=== PATIENT | female | born 1955 | race Caucasian/White ===

== ENCOUNTER 2020-08-18 15:27 | Inpatient (IN) | payer MEDICARE, MEDICAID, SELFPAY ==
[2020-08-18 15:41] VITALS: BP 105/88; BP 94/58; PULSE 80; PULSE 84; RESP 20; TEMP 36.9; O2SAT 100; O2SAT 85; BMI 15.7
--- NOTE | 2020-08-18 16:19 | ED_ITS ---
HPI - Altered Mental Status General Chief Complaint: Altered Mental Status Stated Complaint: AMS X 2 DAYS Time Seen by Provider: 08/18/20 15:41 Source: EMS Mode of arrival: EMS Limitations: altered mental status History of Present Illness HPI narrative: Patient's history of sleep apnea chronic pain bipolar disorder via EMS for increased lethargic per her patient is on lot of medication Klonopin Seroquel and history of oxycodone use in the past patient is in deep sleep but arousable screening for the pain. Other details are not available MD complaint: altered mental status Related Data Home Medications Medication Instructions Recorded Confirmed albuterol sulfate [Ventolin HFA] 2 puff INHALATION Q4H PRN 08/18/20 08/18/20 aspirin 1 tab PO BEDTIME 08/18/20 08/18/20 citalopram 1 tab PO QAM 08/18/20 08/18/20 clonazepam 1 tab PO TID 08/18/20 08/18/20 fluticasone propionate [Flovent 1 puff INHALATION BID 08/18/20 08/18/20 HFA] furosemide 3 tab PO QAM 08/18/20 08/18/20 gabapentin 100 mg PO DAILY 08/18/20 08/18/20 ipratropium-albuterol 1 amp INHALATION QID 08/18/20 08/18/20 metformin 500 mg PO DAILY 08/18/20 08/18/20 metoprolol tartrate 12.5 mg PO DAILY 08/18/20 08/18/20 montelukast 1 tab PO DAILY 08/18/20 08/18/20 pantoprazole 1 tab PO DAILY 08/18/20 08/18/20 pravastatin 1 tab PO BEDTIME 08/18/20 08/18/20 quetiapine 100 mg PO BID 08/18/20 08/18/20 Allergies Allergy/AdvReac Type Severity Reaction Status Date / Time advair Allergy Unknown Uncoded 11/10/19 00:00 paxil Allergy Unknown Uncoded 11/10/19 00:00 From PAXIL AdvReac Intermediate NAUSEA & Uncoded 06/13/20 16:41 VOMITING Review of Systems Review of Systems: Yes Unobtainable due to mental status PMFSH Social History Social History Household Members: Spouse Housing: Apartment Alcohol intake: never Smoking Status: Unknown if ever smoked Smoked in Last 30 Days: No Use of substances other than those prescribed or required for medical reasons: Unable to respond Advance Directives: No Advance Directives Information Provided: Yes Do you have thoughts of harming others: None Recently lost weight without trying: Unsure Physical Exam Vital Signs: Vital Signs: Last Vital Signs Temp 100.6 F H 08/19/20 00:00 Pulse 105 H 08/19/20 00:00 Resp 20 08/19/20 00:00 BP 129/63 08/19/20 00:00 Pulse Ox 93 08/19/20 00:00 Body Mass Index 15.7 Const: General: no acute distress, lethargic and patient obtunded Nutritional Appearance: well nourished Orientation/consciousness: patient obtunded and lethargic Limitations: altered mental status HENMT: Head: Yes normal to inspection Mouth: Abnormal oral and palatal mucosa present ( dry) Eyes: Pupils: Pupil size comments ( 2 mm each) Neck: Neck: Yes normal visual inspection and Yes no meningeal signs Resp: Effort & Inspection: normal respiratory effort Auscultation: clear to auscultation bilaterally, no crackles, no rales, no rhonchi and no wheezes Cardio: Rate: regular rate Rhythm: regular rhythm Heart sounds: S1 normal heart sound present and S2 normal heart sound present GI: Palpation (GI): Soft to palpation, nontender, no guarding and No hepatosplenomegaly present : General: Yes no CVA tenderness Back/Spine/Pelvis: Back: no CVA tenderness Thoracic/Lumbar Spine: thoracic and lumbar spine normal to inspection Neuro: General: tone normal, moves all extremities, no meningeal signs, no focal motor deficits and patient obtunded Course Course Course Narrative: patient increase lethargy , etiology not very clear labs showed leukocytosis and elevated creatinine to 2.76 from 1.01 in May patient's pupils are pinpoint will give her Narcan to see the response likely she took oxycodone IV fluids were given UA is pending plan to admit patient for acute renal failure with hyponatremia and altered mental status from metabolic encephalopathy Reevaluation(s) Reevaluation #1: patient did not respond to Narcan wakes up in between start screaming symptoms likely from metabolic encephalopathy UA showed UTI will give IV Rocephin. Patient's sodium is 121 with serum osmolality of 263 and urine osmolality 254 with sodium less than 20 suggestive of SIADH will admit patient for hyponatremia and UTI with metabolic encephalopathy MDM - Altered Mental Status Lab Data Result diagrams: 08/18/20 16:56 08/18/20 21:11 Labs: Lab Results 08/18/20 08/18/20 08/18/20 Range/Units 16:41 16:55 16:55 WBC (4.8-10.8) X10*3/uL RBC (4.20-5.50) X10*6/uL Hgb (12.0-16.0) g/dl Hct (37-47) % MCV (80-98) fL MCH (27.0-33.0) pg MCHC (31.0-35.0) g/dl RDW (11.0-16.0) % Plt Count (160-400) X10*3/uL MPV (9.4-12.3) fL Immature Gran % (Auto) (0.0-0.4) % Neut % (Auto) (45-73) % Lymph % (Auto) (20-40) % [place] % (Auto) (2-11) % Eos % (Auto) (0-4) % Baso % (Auto) (0-2) % Lymph # (Auto) (1.2-4.9) X10*3/uL [place] # (Auto) (0.1-1.2) X10*3/uL Eos # (Auto) (0.0-0.4) X10*3/uL Baso # (Auto) (0.0-0.2) X10*3/uL Abs Immat Gran (auto) (0.00-0.03) X10*3/uL Absolute Neuts (auto) (2.0-8.3) X10*3/uL Absolute Nucleated RBC (0.0-0.012) X10*3/uL Nucleated RBC % (auto) (0.0-0.2) /100WBC Smear Tech's Comments PT 13.1 H (10.8-13.0) SEC INR 1.1 (0.9-1.1) APTT 33.9 (24.1-38.0) SEC VBG pH (7.32-7.43) VBG pCO2 mmhg VBG pO2 mmhg VBG HCO3 mmol/L VBG O2 Saturation % VBG Base Excess mmol/L Sodium (135-145) mmol/L Potassium (3.3-5.1) mmol/l Chloride (96-108) mmol/L Carbon Dioxide (22-29) mmol/L Anion Gap (12-20) BUN (9-16) mg/dL Creatinine (0.5-1.4) mg/dL Estim Creat Clear Calc Estimated GFR Random Glucose (60-115) mg/dL Osmolality (281-305) mosm/kg Lactic Acid (0.5-2.0) mmol/L Calcium (8.4-10.2) mg/dL Total Bilirubin (0.0-1.0) mg/dL AST (5-31) U/L ALT (0-31) U/L Alkaline Phosphatase (39-117) U/L Total Protein (6.5-8.0) g/dL Albumin (3.5-5.0) g/dL Urine Color Urine Appearance Urine pH (5.0-8.0) Ur Specific [place] (1.005-1.025) Urine Protein (NEG-TRACE) MG/DL Urine Glucose (UA) (NEG) MG/DL Urine Ketones (NEG) MG/DL Urine Blood (NEG) Urine Nitrite (NEG) Ur Leukocyte Esterase (NEG) Urine RBC (0) /HPF Urine WBC (0-4) /HPF Ur Squamous Epith Cells /LPF Urine Bacteria /LPF Urine Osmolality (373-1093) mosm/kg Ur Random Sodium mmol/L Ur Random Potassium mmol/l Ur Random Chloride mmol/L Urine Opiates Screen (Not Detect) Ur Barbiturates Screen (Not Detect) Ur Phencyclidine Scrn (Not Detect) Ur Amphetamines Screen (Not Detect) U Benzodiazepines Scrn (Not Detect) Urine Cocaine Screen (Not Detect) U Marijuana (THC) Screen (Not Detect) COVID-19 ([facility]AKIA) Negative (Negative) COVID-19 Clin Com See Note 08/18/20 08/18/20 08/18/20 Range/Units 16:55 16:56 16:56 WBC 15.0 H (4.8-10.8) X10*3/uL RBC 3.71 L (4.20-5.50) X10*6/uL Hgb 12.1 (12.0-16.0) g/dl Hct 34.1 L (37-47) % MCV 91.9 (80-98) fL MCH 32.6 (27.0-33.0) pg MCHC 35.5 H (31.0-35.0) g/dl RDW 12.3 (11.0-16.0) % Plt Count 314 (160-400) X10*3/uL MPV 8.9 L (9.4-12.3) fL Immature Gran % (Auto) 1.1 H (0.0-0.4) % Neut % (Auto) 81.1 H (45-73) % Lymph % (Auto) 5.7 L (20-40) % [place] % (Auto) 11.9 H (2-11) % Eos % (Auto) 0.1 (0-4) % Baso % (Auto) 0.1 (0-2) % Lymph # (Auto) 0.9 L (1.2-4.9) X10*3/uL [place] # (Auto) 1.8 H (0.1-1.2) X10*3/uL Eos # (Auto) 0.0 (0.0-0.4) X10*3/uL Baso # (Auto) 0.0 (0.0-0.2) X10*3/uL Abs Immat Gran (auto) 0.17 H (0.00-0.03) X10*3/uL Absolute Neuts (auto) 12.1 H (2.0-8.3) X10*3/uL Absolute Nucleated RBC 0.000 (0.0-0.012) X10*3/uL Nucleated RBC % (auto) 0.0 (0.0-0.2) /100WBC Smear Tech's Comments VERIFIED PT (10.8-13.0) SEC INR (0.9-1.1) APTT (24.1-38.0) SEC VBG pH (7.32-7.43) VBG pCO2 mmhg VBG pO2 mmhg VBG HCO3 mmol/L VBG O2 Saturation % VBG Base Excess mmol/L Sodium 121 L (135-145) mmol/L Potassium 3.5 (3.3-5.1) mmol/l Chloride 73 L (96-108) mmol/L Carbon Dioxide 34 H (22-29) mmol/L Anion Gap 18 (12-20) BUN 38 H (9-16) mg/dL Creatinine 2.76 H (0.5-1.4) mg/dL Estim Creat Clear Calc 13.3 Estimated GFR 17 Random Glucose 132 H (60-115) mg/dL Osmolality 263 L (281-305) mosm/kg Lactic Acid (0.5-2.0) mmol/L Calcium 9.3 (8.4-10.2) mg/dL Total Bilirubin 0.6 (0.0-1.0) mg/dL AST 27 (5-31) U/L ALT 22 (0-31) U/L Alkaline Phosphatase 98 (39-117) U/L Total Protein 7.2 (6.5-8.0) g/dL Albumin 3.9 (3.5-5.0) g/dL Urine Color Urine Appearance Urine pH (5.0-8.0) Ur Specific [place] (1.005-1.025) Urine Protein (NEG-TRACE) MG/DL Urine Glucose (UA) (NEG) MG/DL Urine Ketones (NEG) MG/DL Urine Blood (NEG) Urine Nitrite (NEG) Ur Leukocyte Esterase (NEG) Urine RBC (0) /HPF Urine WBC (0-4) /HPF Ur Squamous Epith Cells /LPF Urine Bacteria /LPF Urine Osmolality (373-1093) mosm/kg Ur Random Sodium mmol/L Ur Random Potassium mmol/l Ur Random Chloride mmol/L Urine Opiates Screen (Not Detect) Ur Barbiturates Screen (Not Detect) Ur Phencyclidine Scrn (Not Detect) Ur Amphetamines Screen (Not Detect) U Benzodiazepines Scrn (Not Detect) Urine Cocaine Screen (Not Detect) U Marijuana (THC) Screen (Not Detect) COVID-19 ([facility]IA) (Negative) COVID-19 Clin Com 08/18/20 08/18/20 08/18/20 Range/Units 19:00 19:00 19:13 WBC (4.8-10.8) X10*3/uL RBC (4.20-5.50) X10*6/uL Hgb (12.0-16.0) g/dl Hct (37-47) % MCV (80-98) fL MCH (27.0-33.0) pg MCHC (31.0-35.0) g/dl RDW (11.0-16.0) % Plt Count (160-400) X10*3/uL MPV (9.4-12.3) fL Immature Gran % (Auto) (0.0-0.4) % Neut % (Auto) (45-73) % Lymph % (Auto) (20-40) % [place] % (Auto) (2-11) % Eos % (Auto) (0-4) % Baso % (Auto) (0-2) % Lymph # (Auto) (1.2-4.9) X10*3/uL [place] # (Auto) (0.1-1.2) X10*3/uL Eos # (Auto) (0.0-0.4) X10*3/uL Baso # (Auto) (0.0-0.2) X10*3/uL Abs Immat Gran (auto) (0.00-0.03) X10*3/uL Absolute Neuts (auto) (2.0-8.3) X10*3/uL Absolute Nucleated RBC (0.0-0.012) X10*3/uL Nucleated RBC % (auto) (0.0-0.2) /100WBC Smear Tech's Comments PT (10.8-13.0) SEC INR (0.9-1.1) APTT (24.1-38.0) SEC VBG pH 7.34 (7.32-7.43) VBG pCO2 70 mmhg VBG pO2 35 mmhg VBG HCO3 37 mmol/L VBG O2 Saturation 62.4 % VBG Base Excess 9.1 mmol/L Sodium (135-145) mmol/L Potassium (3.3-5.1) mmol/l Chloride (96-108) mmol/L Carbon Dioxide (22-29) mmol/L Anion Gap (12-20) BUN (9-16) mg/dL Creatinine (0.5-1.4) mg/dL Estim Creat Clear Calc Estimated GFR Random Glucose (60-115) mg/dL Osmolality (281-305) mosm/kg Lactic Acid 1.5 (0.5-2.0) mmol/L Calcium (8.4-10.2) mg/dL Total Bilirubin (0.0-1.0) mg/dL AST (5-31) U/L ALT (0-31) U/L Alkaline Phosphatase (39-117) U/L Total Protein (6.5-8.0) g/dL Albumin (3.5-5.0) g/dL Urine Color Urine Appearance Urine pH (5.0-8.0) Ur Specific [place] (1.005-1.025) Urine Protein (NEG-TRACE) MG/DL Urine Glucose (UA) (NEG) MG/DL Urine Ketones (NEG) MG/DL Urine Blood (NEG) Urine Nitrite (NEG) Ur Leukocyte Esterase (NEG) Urine RBC (0) /HPF Urine WBC (0-4) /HPF Ur Squamous Epith Cells /LPF Urine Bacteria /LPF Urine Osmolality (373-1093) mosm/kg Ur Random Sodium mmol/L Ur Random Potassium mmol/l Ur Random Chloride mmol/L Urine Opiates Screen Not Detected (Not Detect) Ur Barbiturates Screen Not Detected (Not Detect) Ur Phencyclidine Scrn Not Detected (Not Detect) Ur Amphetamines Screen Not Detected (Not Detect) U Benzodiazepines Scrn Not Detected (Not Detect) Urine Cocaine Screen Not Detected (Not Detect) U Marijuana (THC) Screen POSITIVE H (Not Detect) COVID-19 ([facility]AKIA) (Negative) COVID-19 Clin Com 08/18/20 08/18/20 08/18/20 Range/Units 19:13 19:35 19:35 WBC (4.8-10.8) X10*3/uL RBC (4.20-5.50) X10*6/uL Hgb (12.0-16.0) g/dl Hct (37-47) % MCV (80-98) fL MCH (27.0-33.0) pg MCHC (31.0-35.0) g/dl RDW (11.0-16.0) % Plt Count (160-400) X10*3/uL MPV (9.4-12.3) fL Immature Gran % (Auto) (0.0-0.4) % Neut % (Auto) (45-73) % Lymph % (Auto) (20-40) % [place] % (Auto) (2-11) % Eos % (Auto) (0-4) % Baso % (Auto) (0-2) % Lymph # (Auto) (1.2-4.9) X10*3/uL [place] # (Auto) (0.1-1.2) X10*3/uL Eos # (Auto) (0.0-0.4) X10*3/uL Baso # (Auto) (0.0-0.2) X10*3/uL Abs Immat Gran (auto) (0.00-0.03) X10*3/uL Absolute Neuts (auto) (2.0-8.3) X10*3/uL Absolute Nucleated RBC (0.0-0.012) X10*3/uL Nucleated RBC % (auto) (0.0-0.2) /100WBC Smear Tech's Comments PT (10.8-13.0) SEC INR (0.9-1.1) APTT (24.1-38.0) SEC VBG pH (7.32-7.43) VBG pCO2 mmhg VBG pO2 mmhg VBG HCO3 mmol/L VBG O2 Saturation % VBG Base Excess mmol/L Sodium (135-145) mmol/L Potassium (3.3-5.1) mmol/l Chloride (96-108) mmol/L Carbon Dioxide (22-29) mmol/L Anion Gap (12-20) BUN (9-16) mg/dL Creatinine (0.5-1.4) mg/dL Estim Creat Clear Calc Estimated GFR Random Glucose (60-115) mg/dL Osmolality (281-305) mosm/kg Lactic Acid (0.5-2.0) mmol/L Calcium (8.4-10.2) mg/dL Total Bilirubin (0.0-1.0) mg/dL AST (5-31) U/L ALT (0-31) U/L Alkaline Phosphatase (39-117) U/L Total Protein (6.5-8.0) g/dL Albumin (3.5-5.0) g/dL Urine Color RED Urine Appearance TURBID Urine pH 8.0 (5.0-8.0) Ur Specific [place] 1.015 (1.005-1.025) Urine Protein 2+ H (NEG-TRACE) MG/DL Urine Glucose (UA) NEG (NEG) MG/DL Urine Ketones 5 (NEG) MG/DL Urine Blood 3+ H (NEG) Urine Nitrite POS H (NEG) Ur Leukocyte Esterase TRACE H (NEG) Urine RBC TNTC H (0) /HPF Urine WBC 1-4 (0-4) /HPF Ur Squamous Epith Cells 1+ /LPF Urine Bacteria 1+ /LPF Urine Osmolality 254 L (373-1093) mosm/kg Ur Random Sodium < 20.0 mmol/L Ur Random Potassium 37.3 mmol/l Ur Random Chloride < 20.0 mmol/L Urine Opiates Screen (Not Detect) Ur Barbiturates Screen (Not Detect) Ur Phencyclidine Scrn (Not Detect) Ur Amphetamines Screen (Not Detect) U Benzodiazepines Scrn (Not Detect) Urine Cocaine Screen (Not Detect) U Marijuana (THC) Screen (Not Detect) COVID-19 ([facility]IA) (Negative) COVID-19 Clin Com 08/18/20 Range/Units 20:41 WBC (4.8-10.8) X10*3/uL RBC (4.20-5.50) X10*6/uL Hgb (12.0-16.0) g/dl Hct (37-47) % MCV (80-98) fL MCH (27.0-33.0) pg MCHC (31.0-35.0) g/dl RDW (11.0-16.0) % Plt Count (160-400) X10*3/uL MPV (9.4-12.3) fL Immature Gran % (Auto) (0.0-0.4) % Neut % (Auto) (45-73) % Lymph % (Auto) (20-40) % [place] % (Auto) (2-11) % Eos % (Auto) (0-4) % Baso % (Auto) (0-2) % Lymph # (Auto) (1.2-4.9) X10*3/uL [place] # (Auto) (0.1-1.2) X10*3/uL Eos # (Auto) (0.0-0.4) X10*3/uL Baso # (Auto) (0.0-0.2) X10*3/uL Abs Immat Gran (auto) (0.00-0.03) X10*3/uL Absolute Neuts (auto) (2.0-8.3) X10*3/uL Absolute Nucleated RBC (0.0-0.012) X10*3/uL Nucleated RBC % (auto) (0.0-0.2) /100WBC Smear Tech's Comments PT (10.8-13.0) SEC INR (0.9-1.1) APTT (24.1-38.0) SEC VBG pH (7.32-7.43) VBG pCO2 mmhg VBG pO2 mmhg VBG HCO3 mmol/L VBG O2 Saturation % VBG Base Excess mmol/L Sodium Cancelled (135-145) mmol/L Potassium (3.3-5.1) mmol/l Chloride (96-108) mmol/L Carbon Dioxide (22-29) mmol/L Anion Gap (12-20) BUN (9-16) mg/dL Creatinine (0.5-1.4) mg/dL Estim Creat Clear Calc Estimated GFR Random Glucose (60-115) mg/dL Osmolality (281-305) mosm/kg Lactic Acid (0.5-2.0) mmol/L Calcium (8.4-10.2) mg/dL Total Bilirubin (0.0-1.0) mg/dL AST (5-31) U/L ALT (0-31) U/L Alkaline Phosphatase (39-117) U/L Total Protein (6.5-8.0) g/dL Albumin (3.5-5.0) g/dL Urine Color Urine Appearance Urine pH (5.0-8.0) Ur Specific [place] (1.005-1.025) Urine Protein (NEG-TRACE) MG/DL Urine Glucose (UA) (NEG) MG/DL Urine Ketones (NEG) MG/DL Urine Blood (NEG) Urine Nitrite (NEG) Ur Leukocyte Esterase (NEG) Urine RBC (0) /HPF Urine WBC (0-4) /HPF Ur Squamous Epith Cells /LPF Urine Bacteria /LPF Urine Osmolality (373-1093) mosm/kg Ur Random Sodium mmol/L Ur Random Potassium mmol/l Ur Random Chloride mmol/L Urine Opiates Screen (Not Detect) Ur Barbiturates Screen (Not Detect) Ur Phencyclidine Scrn (Not Detect) Ur Amphetamines Screen (Not Detect) U Benzodiazepines Scrn (Not Detect) Urine Cocaine Screen (Not Detect) U Marijuana (THC) Screen (Not Detect) COVID-19 ([facility]) (Negative) COVID-19 Clin Com Discharge Plan Discharge Clinical Impression: Acute UTI, Acute metabolic encephalopathy Altered mental status Qualifiers: Altered mental status type: stupor Qualified Code(s): R40.1 - Stupor Patient Disposition: Admitted As Inpatient Interventions: Admission Worksheet (ED) Last Done: 08/18/20 22:40 Discharge Date/Time: 08/18/20 22:46
--- NOTE | 2020-08-18 16:26 | ECG_ITS ---
Test Reason : AMS Blood Pressure : / mmHG Vent. Rate : 075 BPM Atrial Rate : 075 BPM P-R Int : 146 ms QRS Dur : 096 ms QT Int : 458 ms P-R-T Axes : 057 005 070 degrees QTc Int : 511 ms Normal sinus rhythm with sinus arrhythmia ST & T wave abnormality, consider anterolateral ischemia RSR' or QR pattern in V1 suggests right ventricular conduction delay Abnormal ECG When compared with ECG of [id number] Heart rate has decreased T wave inversion more evident in Anterolateral leads Referred By: Mikel Blanco Electronically Signed By:ALVARO SEVERINO MD
[2020-08-18 16:33] VITALS: BP 100/62; PULSE 91; RESP 16; TEMP 36.5; O2SAT 98
--- NOTE | 2020-08-18 16:41 | XR_ITS ---
EXAMINATION: XR CHEST CLINICAL INFORMATION: Altered sensorium. COMPARISON: Chest radiograph and CTA chest dated 06/16/2020. TECHNIQUE: Frontal view of the chest was obtained. FINDINGS: The lungs are clear. The cardiomediastinal silhouette is normal in size. There is no pleural effusion or pneumothorax. No acute osseous abnormality. XR/XR chest 1V IMPRESSION: No acute cardiopulmonary findings.
[2020-08-18] MEDS: 0.9 % Sodium Chloride 1,000 ML 999 ML IVCONT ×2 (17:04→18:36)
[2020-08-18 17:05] VITALS: BP 100/61; PULSE 76; RESP 16; TEMP 37.1; O2SAT 98
[2020-08-18 17:06] LABS: Basophils Percent Auto 0.1 % (0-2); Eosinophils Percent Auto 0.1 % (0-4); Hematocrit 34.1 % (37-47); Hemoglobin 12.1 g/dl (12.0-16.0); Imm Gran Abs Auto 0.17 X10*3/uL (0.00-0.03); Imm Gran Pct Auto 1.1 % (0.0-0.4); Lymphocytes Absolute Auto 0.9 X10*3/uL (1.2-4.9); Lymphocytes Percent Auto 5.7 % (20-40); MANUAL DIFF FLAG SCAN; Mean Corpuscular HGB Conc 35.5 g/dl (31.0-35.0); Mean Corpuscular Hemoglobin 32.6 pg (27.0-33.0); Mean Corpuscular Volume 91.9 fL (80-98); Mean Platelet Volume 8.9 fL (9.4-12.3); Monocytes Absolute Auto 1.8 X10*3/uL (0.1-1.2); Monocytes Percent Auto 11.9 % (2-11); Neutrophils Absolute Auto 12.1 X10*3/uL (2.0-8.3); Neutrophils Percent Auto 81.1 % (45-73); Platelet Count 314 X10*3/uL (160-400); Red Blood Count 3.71 X10*6/uL (4.20-5.50); Red Cell Distribution Width 12.3 % (11.0-16.0); SCAN SMEAR FLAG 1
[2020-08-18 17:16] LABS: INTERNATIONAL NORM RATIO 1.1 (0.9-1.1); Prothrombin Time 13.1 SEC (10.8-13.0)
[2020-08-18 17:18] LABS: Partial Thromboplastin Time 33.9 SEC (24.1-38.0)
[2020-08-18 17:27] LABS: COVID-19 Test Negative (Negative)
[2020-08-18 17:51] LABS: Alanine Aminotransferase 22 U/L (0-31); Albumin Level 3.9 g/dL (3.5-5.0); Alkaline Phosphatase 98 U/L (39-117); Anion Gap 18 (12-20); Aspartate Amino Transferase 27 U/L (5-31); Bilirubin Total 0.6 mg/dL (0.0-1.0); Blood Urea Nitrogen 38 mg/dL (9-16); Calcium 9.3 mg/dL (8.4-10.2); Carbon Dioxide 34 mmol/L (22-29); Chloride 73 mmol/L (96-108); Creatinine Clr Calc Pharmacy 13.3; Estimated Glomerular Filt Rate 17; Glucose Random 132 mg/dL (60-115); Potassium 3.5 mmol/l (3.3-5.1); Sodium 121 mmol/L (135-145); Total Protein 7.2 g/dL (6.5-8.0)
[2020-08-18 18:08] LABS: SLIDE REVIEW VERIFIED
[2020-08-18] MEDS: Naloxone HCl 0.4 MG/ML VIAL IVPUSH (19:20)
[2020-08-18 19:32] LABS: Glucose Urine UA NEG (NEG); Leukocyte Esterase Urine TRACE (NEG); Nitrite Urine POS (NEG); Specific Gravity - Urine 1.015 (1.005-1.025); Urine Blood 3+ (NEG); Urine Ketones 5 MG/DL (NEG); Urine Protein 2+ MG/DL (NEG-TRACE)
[2020-08-18 19:33] LABS: Base Excess VBG 9.1 mmol/L; HCO3 VBG 37 mmol/L; Oxygen Saturation VBG 62.4 %; PCO2 VBG 70 mmhg; PO2 VBG 35 mmhg; pH VBG 7.34 (7.32-7.43)
[2020-08-18 19:33] LABS: Appearance Urine TURBID; Color Urine RED
[2020-08-18 19:34] LABS: Blood Gas Serial # 5414
[2020-08-18 19:47] LABS: Lactic Acid 1.5 mmol/L (0.5-2.0)
[2020-08-18 19:49] VITALS: BP 107/40; PULSE 85; RESP 20; TEMP 37.1; O2SAT 94
[2020-08-18 19:53] LABS: Amphetamine Screen Urine Not Detected (Not Detect); Barbiturates, Urine Not Detected (Not Detect); Benzodiazepines Screen Urine Not Detected (Not Detect); Cannabinoid Screen Urine POSITIVE (Not Detect); Cocaine Screen Urine Not Detected (Not Detect); Opiate Screen Urine Not Detected (Not Detect); Phencyclidine Screen Urine Not Detected (Not Detect)
[2020-08-18 19:59] LABS: Bacteria Urine 1+ /LPF; RBC Urine TNTC /HPF (0); Squamous Epithelial Cell Urine 1+ /LPF
[2020-08-18] MEDS: cefTRIAXone sodium 1 GM in 0.9 % Sodium Chloride 50 ML IV (20:12)
[2020-08-18 20:20] LABS: Potassium Urine Random 37.3 mmol/l; Sodium Urine Random < 20.0 mmol/L
[2020-08-18 20:28] LABS: Osmolality, Serum 263 mosm/kg (281-305)
[2020-08-18 20:28] LABS: Osmolality Urine 254 mosm/kg (373-1093)
[2020-08-18 21:05] LABS: Chloride Urine Random < 20.0 mmol/L
[2020-08-18 22:01] LABS: Sodium 125 mmol/L (135-145)
[2020-08-18 23:45] VITALS: BMI 26.0
[2020-08-18 23:48] LABS: Glucose, Whole Blood 151 mg/dL (60-115)
[2020-08-19] VITALS (13 sets, daily range): BP systolic 117–161; BP diastolic 63–86; PULSE 69–105; RESP 16–20; TEMP 36.2–38.1; O2SAT 89–99
--- NOTE | 2020-08-19 | CT_ITS ---
EXAMINATION: CT HEAD WITHOUT CONTRAST CLINICAL INFORMATION: Evaluation for altered mental status COMPARISON: 04/19/2015 TECHNIQUE: Contiguous axial imaging was performed from the skull base to vertex without intravenous administration of contrast. This CT examination was performed using dose optimization techniques as appropriate, variously including the following: *Automated exposure control *Adjustment of mA and/or kV according to patient size (this includes techniques or standardized protocols for targeted exams where dose is matched to indication/reason for exam; i.e. extremities or head) *Use of iterative reconstruction technique DLP: 849 mGy-cm FINDINGS: There is no evidence of acute intracranial hemorrhage or territorial infarction. No abnormal mass effect or midline shift is seen. Fitch to white matter differentiation is well preserved. Mild periventricular and deep white matter hypodensities suggesting underlying microangiopathy. No extra-axial fluid collections are identified. The ventricles are normal in size. There is no abnormal attenuation within the brain parenchyma. The osseous structures and soft tissues are normal. The mastoid air cells are chronically opacified. CT/CT head/brain wo con IMPRESSION: No acute intracranial pathology. Chronic opacification of the mastoid air cells.
--- NOTE | 2020-08-19 | CT_ITS ---
EXAMINATION: CT ABDOMEN AND PELVIS WITHOUT CONTRAST CLINICAL INFORMATION: Abdominal pain, evaluate for renal obstruction. COMPARISON: 03/22/2019 TECHNIQUE: Multidetector volumetric imaging was performed from the superior aspect of the liver through the pubic symphysis. Sagittal and coronal reformatted images were obtained on the technologist's workstation. This CT examination was performed using dose optimization techniques as appropriate, variously including the following: *Automated exposure control *Adjustment of mA and/or kV according to patient size (this includes techniques or standardized protocols for targeted exams where dose is matched to indication/reason for exam; i.e. extremities or head) *Use of iterative reconstruction technique DLP: 1148 mGy-cm FINDINGS: Motion artifact degrades image quality. LUNG BASES: The visualized lung bases are unremarkable. LIVER, GALLBLADDER, AND BILIARY TREE: Diffusely decreased liver parenchymal attenuation. No focal hepatic lesions. No intrahepatic biliary ductal dilatation. The gallbladder is unremarkable with no evidence of radiopaque gallstones, gallbladder wall thickening, or obvious pericholecystic inflammatory changes. PANCREAS: Unremarkable. SPLEEN: Unremarkable. ADRENAL GLANDS: Unremarkable. KIDNEYS AND URETERS: The kidneys are normal in size, shape, and attenuation. No hydronephrosis, hydroureter, or calculi seen. No perinephric stranding. BLADDER: The bladder is decompressed with a Dudley catheter in place. No bladder calculi GASTROINTESTINAL TRACT: The small and large bowel are unremarkable. Surgical clips in the region of the cecum. ABDOMINAL WALL: No significant hernia is appreciated. LYMPH NODES: Normal. VASCULAR: Mild to moderate atherosclerotic plaque throughout the aorta PELVIC VISCERA: The uterus and adnexa are unremarkable. 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 CT/CT abdomen pelvis wo con IMPRESSION: No hydronephrosis or renal calculi. Hepatic steatosis.
[2020-08-19] MEDS: Heparin Sodium,Porcine 5,000 UNIT/ML VIAL 5000 UNIT SUBCUT ×2 (00:18→12:52)
[2020-08-19] MEDS: 0.9 % Sodium Chloride Flush 3 ML SYRINGE IVFLUSH ×2 (00:18→09:00)
[2020-08-19] MEDS: 0.9 % Sodium Chloride 1,000 ML 50 ML IVCONT (00:19)
[2020-08-19] MEDS: Insulin Lispro 100 UNIT/ML 3 ML VIAL SUBCUT (00:27)
[2020-08-19 01:20] LABS: Sodium 125 mmol/L (135-145)
[2020-08-19 04:11] LABS: Basophils Percent Auto 0.1 % (0-2); Hematocrit 30.7 % (37-47); Hemoglobin 10.9 g/dl (12.0-16.0); Imm Gran Abs Auto 0.19 X10*3/uL (0.00-0.03); Imm Gran Pct Auto 1.4 % (0.0-0.4); Lymphocytes Absolute Auto 0.4 X10*3/uL (1.2-4.9); Lymphocytes Percent Auto 2.9 % (20-40); Mean Corpuscular HGB Conc 35.5 g/dl (31.0-35.0); Mean Corpuscular Hemoglobin 32.4 pg (27.0-33.0); Mean Corpuscular Volume 91.4 fL (80-98); Mean Platelet Volume 8.8 fL (9.4-12.3); Monocytes Absolute Auto 1.5 X10*3/uL (0.1-1.2); Monocytes Percent Auto 10.6 % (2-11); Neutrophils Absolute Auto 11.9 X10*3/uL (2.0-8.3); Platelet Count 257 X10*3/uL (160-400); Red Blood Count 3.36 X10*6/uL (4.20-5.50); Red Cell Distribution Width 12.2 % (11.0-16.0); SCAN SMEAR FLAG 1
[2020-08-19 04:16] LABS: MANUAL DIFF FLAG SCAN
[2020-08-19 04:32] LABS: SLIDE REVIEW VERIFIED
[2020-08-19 04:51] LABS: Anion Gap 16 (12-20); Blood Urea Nitrogen 41 mg/dL (9-16); Calcium 8.1 mg/dL (8.4-10.2); Carbon Dioxide 31 mmol/L (22-29); Chloride 82 mmol/L (96-108); Creatinine Clr Calc Pharmacy 21.3; Estimated Glomerular Filt Rate 19; Glucose Random 127 mg/dL (60-115); Sodium 126 mmol/L (135-145)
[2020-08-19 05:12] LABS: Thyroid Stimulating Hormone 0.86 uIU/mL (0.32-4.0)
[2020-08-19 08:20] LABS: Glucose, Whole Blood 137 mg/dL (60-115)
[2020-08-19] MEDS: Montelukast Sodium 10 MG TABLET PO (08:53)
[2020-08-19] MEDS: clonazePAM 0.5 MG TABLET PO (08:53)
[2020-08-19] MEDS: metFORMIN HCl 500 MG TABLET PO (08:53)
[2020-08-19] MEDS: QUEtiapine Fumarate 100 MG TABLET PO (08:54)
[2020-08-19] MEDS: Metoprolol Tartrate 25 MG TABLET 12.5 MG PO (08:54)
[2020-08-19] MEDS: Furosemide 20 MG TABLET 60 MG PO (08:55)
[2020-08-19] MEDS: Gabapentin 100 MG CAPSULE PO (09:00)
[2020-08-19] MEDS: Albuterol/Iprat 2.5/0.5MG 3 ML AMPUL.NEB INHALE ×4 (09:06→19:55)
[2020-08-19] MEDS: Fluticasone Propionate 250 MCG BLST.W.DEV 1 PUFF INHALE ×2 (09:30→19:55)
--- NOTE | 2020-08-19 11:03 | P.CDIC_ITS ---
CDI Concurrent Query Service Date: 08/19/20 Documentation Clarification: Please clarify if you are treating a proba ble/suspected/likely or confirmed: Metabolic/toxic encephalopathy poa Please specify if known Provider Response: Toxic Encephalopathy PLEASE DO NOT DELETE/MODIFY EXISTING CONTENT Additional information is needed in order to code to the highest accuracy and appropriate Severity of Illness (SOI). Please clarify the information noted be low in your progress notes and discharge summary. Risk Factors/Clinical Indicators/Treatments ED altered mental status, UTI Clinical impression: Admit Acute UTI, Acute metabolic encephalopathy. pt did not respond to Narcan wakes up in between start screaming symptoms likely from metabolic encephalopathy. CDS: Giulia Angelo CCS, CDIS Contact Number: [phone] Please Review the information above and exercise your independent professional judgment in responding to the query. If you concur, pleas document in the PROGRESS NOTES and DISCHARGE SUMMARY. If you do not agree with the query, please document in the query above. THIS QUERY IS PART OF THE PERMANENT MEDICAL RECORD
--- NOTE | 2020-08-19 11:04 | HP_ITS ---
Seen and examined independently, I agree with DIVINA note assessment and plan. For full note please see H&P DATE OF SERVICE: 08/18/2020 CHIEF COMPLAINT: Confusion. HISTORY OF PRESENT ILLNESS: A 65-year-old [place]-speaking woman presenting from the ER with confusion and lethargy. According to the record, apparently her called EMS for increased lethargy. He reported that he was concerned that she may be on a lot of medications including Klonopin and Seroquel and history of oxycodone use in the past. Apparently, she had seemed to be in a deep sleep, but arousable to painful stimuli. Unfortunately, the patient is confused and is unable to give any detailed information as to what happened including what her symptoms are when they started. An attempt was made to call 2 separate telephone numbers on the medical record, both were unsuccessful due to telephone number is not being in use. She did, however, positive for a UTI. Her white blood cell count was elevated at 15.0. She also had a venous blood gas, which showed pH of 7.34, pCO2 of 70, PO2 of 35, and HC03 37. Curiously enough, her sodium was noted to be 121, which is new for her. Unfortunately, the patient is confused, therefore information cannot be obtained as to why she may have such a low sodium. Her creatinine was also noted to be elevated at 2.76, which is also new for her. Urine toxicology was positive for marijuana. COVID-19 test was negative. Chest x-ray was negative for consolidation or effusion. Her vital signs were stable, though her blood pressure was a little on the lower side. Other than that, she was not hypoxic. She was given a dose of Rocephin in the ER, 2 L of IV fluids, at some point, a dose of naloxone. She will be admitted for further management and treatment of metabolic encephalopathy secondary to UTI and hyponatremia. PAST MEDICAL HISTORY: 1. Obstructive sleep apnea, unknown if the patient uses CPAP. 2. Coronary artery disease status post myocardial infarction. 3. Diabetes mellitus. 4. COPD. 5. Hypertension. 6. Osteoarthritis. 7. Bipolar disorder. 8. History of appendectomy. 9. History of tracheostomy and feeding tube that was discontinued. FAMILY HISTORY: According to the record, no history of cancer or inflammatory bowel disease. SOCIAL HISTORY: Unable to obtain any accurate social history as patient is unable to answer questions appropriately. ALLERGIES: ALLERGIES TO ADVAIR AND PAXIL. MEDICATIONS: 1. Aspirin 81 mg p.o. daily. 2. Baclofen 20 mg twice daily. 3. Cholecalciferol 25 mcg twice daily. 4. Citalopram 40 mg daily. 5. Clonazepam 0.5 mg 3 times a day for anxiety. 6. Cyclobenzaprine 10 mg twice daily. 7. Famotidine 20 mg twice daily. 8. Flovent 1 puff twice daily. 9. Furosemide 60 mg daily. 10. Gabapentin 100 mg. 11. Metformin 500 mg. 12. Metoprolol tartrate 25 mg. 13. Montelukast sodium 10 mg. 14. Pantoprazole 40 mg. 15. Pravastatin 40 mg. 16. Seroquel 100 mg. 17. Ventolin HFA 2 puffs every 4 hours as needed for shortness of breath. REVIEW OF SYSTEMS: Unable to obtain due metabolic encephalopathy. PHYSICAL EXAMINATION: CONSTITUTIONAL: The patient is resting in bed. Appearing confused, somewhat lethargic, but awake. HEENT: Eyes pupils are PERRLA. Sclerae are anicteric. Mouth and throat, mucous membranes are intact and moist. NECK: Supple. No lymphadenopathy. No JVD noted. CHEST: Diminished throughout. HEART: Regular rate and rhythm. ABDOMEN: Obese, positive bowel sounds. Soft, nontender. NEURO: The patient is alert, confused, does not appear to have focal deficits. LABORATORY DATA: WBC 15.0, hemoglobin 12.1, hematocrit 34.1, and platelets 314. Sodium 121, potassium 3.5, chloride is 73, bicarb is 34, BUN is 38, and creatinine is 2.76. Urinalysis positive for infection. Toxicology positive for marijuana, negative COVID. ASSESSMENT AND PLAN: A 65-year-old woman who is being admitted with metabolic encephalopathy secondary to hyponatremia and urinary tract infection. At this point, it is unclear what is driving the hyponatremia. According to the record, she may have some baseline confusion and lethargy at some points, but she seems quite confused today and unable to answer any questions. 1. Metabolic encephalopathy. Unclear etiology, but likely related to urinary tract infection and possibly hyponatremia as her sodium is 121. We will continue to monitor her neuro status, treat infection. Nephrology to follow for the hyponatremia. She is on multiple psych medications. We will hold clonazepam, cyclobenzaprine, gabapentin, and Seroquel for today and re-evaluate in the morning. 2. Hyponatremia. The patient appears to be on diuretic at home. She did receive some IV fluids in the ER. We will recheck sodium this evening. Nephrology to follow, urine studies are pending. 3. Acute kidney injury, multifactorial likely related to urinary tract infection and possibly hypoperfusion from hypotension. We will treat urinary tract infection, she did receive 2 L of IV fluids in the ER. Nephrology to follow. 4. Avoid nephrotoxins. 5. Urinary tract infection. Rocephin, follow urine cultures. 6. Diabetes mellitus. Sliding scale, ADA diet. Hold home medications for now. 7. Deep vein thrombosis prophylaxis with heparin. 8. Case discussed with Dr. Mariano. 9. Full code. MYCHAL Floyd JR/DERRELL / [id number] MTDD
[2020-08-19 11:11] LABS: Glucose, Whole Blood 111 mg/dL (60-115)
[2020-08-19] MEDS: Potassium Chloride ER 20 MEQ TAB.ER.PRT 40 MEQ PO (11:25)
--- NOTE | 2020-08-19 11:32 | MHC.CM.PN ---
CM attempted to meet with Patient X2, but Patient appears sleepy. CM made multiple calls to Patient's /Juanjo @ [phone], but the phone does not appear to be working (goes to an immediate busy tone).IMM left at bedside for Patient's review, when she is more alert/awake and a copy has been placed on the chart. dc plan appears to be home with services vs STR (presently a 2 assist with mobility); CM has initiated and will follow for further dc planning/needs. Patient's RN has received calls from Patient's and CM has requested to speak with him if/when he calls again (RN is agreeable to assist with this). PCP is Dr. Ryder Monique.
[2020-08-19] MEDS: Potassium Chloride/H20 10 MEQ/100 ML PIGGYBACK 100 MEQ IV (11:33)
--- NOTE | 2020-08-19 13:53 | MHC.CLN ---
RE: CONSULT (ROUTINE) RECOMMEND ADDING 2GM NA DIET TO CURRENT DIET R/T HX CAD WITH [place]
--- NOTE | 2020-08-19 15:15 | PC.NURSE ---
Patients phone number [phone].
--- NOTE | 2020-08-19 16:03 | P.PNIM_ITS ---
Subjective Subjective Date of Service: 08/19/20 Interval History: the patient was seen and evaluated this morning and in the afternoon Laying in bed, looks comfortable but very sleepy and waking up to sternum rub but goes back to sleep quickly Denies any fever, chills or shortness of breath No reported other overnight events. Systemic review: patient altered mentation Physical Exam Vital Signs: Vital Signs: Last Vital Signs Temp 98 F 08/19/20 15:40 Pulse 80 08/19/20 15:40 Resp 18 08/19/20 15:40 BP 124/63 08/19/20 15:40 Pulse Ox 97 08/19/20 15:40 Body Mass Index 26.0 Constitutional : altered mentation, encephalopathic, not in distress Neck : Normal inspection, Supple Cardiovascular : RRR, S1 S2, no lower extremity edema Respiratory : fair bilateral air entry, no crackles, scattered wheezes and no rhonchi Gastrointestinal: soft, lax, Normal bowel sounds, Non tender Skin : Warm/Dry, No rash Neurological : Alert & oriented x3, No focal deficit Objective Data Current Medications Generic Name Dose Route Start Last Admin Trade Name Freq PRN Reason Stop Dose Admin Acetaminophen 650 mg 08/18/20 23:40 Acetaminophen 325 Mg Tablet PO Q6H PRN Pain, Mild (Pain Scale 1-3) Albuterol Sulfate 2 puff 08/19/20 08:16 Albuterol Sulfate 90 Mcg 8 Gm Inhaler INHALE Q4H PRN Shortness Of Breath Or Wheezin Albuterol/Ipratropium 3 ml 08/19/20 08:30 08/19/20 15:26 Albuterol/Iprat 2.5/0.5mg 3 Ml Ampul.Neb INHALE 3 ml RQID YUMIKO Administration Aspirin 81 mg 08/19/20 21:00 Aspirin Enteric Coated 81 Mg Tablet. PO BEDTIME YUMIKO Fluticasone Propionate 1 puff 08/19/20 08:30 08/19/20 09:30 Fluticasone Propionate 250 Mcg Blst.W.Dev INHALE 1 puff RBID YUMIKO Administration Heparin Sodium (Porcine) 5,000 unit 08/18/20 23:40 08/19/20 12:52 Heparin Sodium,Porcine 5,000 Unit/Ml Vial SUBCUT 5,000 unit Q12H YUMIKO Administration Ceftriaxone Sodium 1 gm/ 50 mls @ 100 mls/hr 08/19/20 20:00 Sodium Chloride IV Q24H [facility] Potassium Chloride/Sodium Chloride 20 meq in 1,000 mls @ 125 mls/hr 08/19/20 12:00 08/19/20 12:53 IVCONT Not Given .Q8H YUMIKO Insulin Human Lispro 0 unit 08/18/20 23:40 08/19/20 12:26 Insulin Lispro 100 Unit/Ml 3 Ml Vial SUBCUT Not Given QIDACHS [facility] Protocol Metoprolol Tartrate 12.5 mg 08/19/20 09:00 08/19/20 08:54 Metoprolol Tartrate 25 Mg Tablet PO 12.5 mg DAILY [facility] Administration Protocol Montelukast Sodium 10 mg 08/19/20 09:00 08/19/20 08:53 Montelukast Sodium 10 Mg Tablet PO 10 mg DAILY [facility] Administration Ondansetron HCl 4 mg 08/18/20 23:40 Ondansetron Hcl 4 Mg/2 Ml Vial IVPUSH Q8H PRN Nausea and Vomiting Pharmacy Consult 1 each 08/18/20 19:57 Consult Rx Perform Med Rec MISCELLANE ONCE PRN Consult order Pravastatin Sodium 40 mg 08/19/20 21:00 Pravastatin Sodium 40 Mg Tablet PO BEDTIME [facility] Sodium Chloride 3 ml 08/19/20 00:00 08/19/20 09:00 0.9 % Sodium Chloride Flush 3 Ml Syringe IVFLUSH 3 ml QSHIFT [facility] Administration Labs CBC & Chem 7: 08/19/20 03:56 08/19/20 03:56 Microbiology Microbiology Results: Microbiology 08/18/20 19:00 Blood - Venous Blood Culture - Preliminary 08/18/20 19:35 Urine clean catch - Clean Catch Midstream Urine Culture - F inal 08/18/20 19:00 Blood - Venous Blood Culture - Preliminary Assessment and Plan (1) Altered mental status: Status: Acute (2) Acute UTI: Status: Acute (3) Acute metabolic encephalopathy: Status: Acute (4) Toxic encephalopathy: Status: Acute (5) Acute hyponatremia: Status: Acute Assessment and Plan: A 65-year-old female who is admitted with encephalopathy secondary to hyponatremia , UTI, SAGAR. Toxic/Metabolic encephalopathy. Unclear etiology, could be secondary to UTI, hyponatremia, kidney injury, medications to check CT scan of the head Nephrology to follow hold clonazepam, cyclobenzaprine, gabapentin, and Seroquel for today Hyponatremia. on diuretic at home. sodium improved to 126 this morning Urine studies suggesting true hyponatremia from hypovolemia Continue IV fluids Nephrology to follow monitor BMP Acute kidney injury Secondary to dehydration, medications, possible obstruction To check abdominal CT Creatinine 2.5 this morning Increase IV fluids Nephrology to follow Urinary tract infection No growth in urine culture continue Rocephin Diabetes mellitus. Sliding scale, ADA diet. Hold home medications for now. Deep vein thrombosis prophylaxis heparin. home
[2020-08-19 16:36] LABS: Anion Gap 14 (12-20); Blood Urea Nitrogen 44 mg/dL (9-16); Calcium 8.5 mg/dL (8.4-10.2); Carbon Dioxide 32 mmol/L (22-29); Chloride 86 mmol/L (96-108); Creatinine Clr Calc Pharmacy 22.4; Estimated Glomerular Filt Rate 20; Glucose Random 103 mg/dL (60-115); Potassium 3.2 mmol/l (3.3-5.1); Sodium 129 mmol/L (135-145)
[2020-08-19 17:21] LABS: Glucose, Whole Blood 115 mg/dL (60-115)
[2020-08-19] MEDS: Aspirin Enteric Coated 81 MG TABLET.DR PO (20:03)
[2020-08-19] MEDS: cefTRIAXone sodium 1 GM in 0.9 % Sodium Chloride 50 ML IV (20:03)
[2020-08-19] MEDS: Pravastatin Sodium 40 MG TABLET PO (20:03)
[2020-08-19] MEDS: Acetaminophen 325 MG TABLET 650 MG PO (20:03)
[2020-08-19 21:13] LABS: Glucose, Whole Blood 123 mg/dL (60-115)
[2020-08-20] VITALS (12 sets, daily range): BP systolic 136–172; BP diastolic 72–85; PULSE 72–104; RESP 18; TEMP 36.4–37.1; O2SAT 94–100
[2020-08-20] MEDS: 0.9 % Sodium Chloride Flush 3 ML SYRINGE IVFLUSH ×3 (00:53→16:02)
[2020-08-20] MEDS: Heparin Sodium,Porcine 5,000 UNIT/ML VIAL 5000 UNIT SUBCUT ×3 (00:53→21:21)
[2020-08-20] MEDS: Acetaminophen 325 MG TABLET 650 MG PO ×2 (02:34→09:26)
--- NOTE | 2020-08-20 06:01 | PC.NURSE ---
Alert and responsive but remained confused, screaming at times. SR on tele monitor. Complained of bilateral leg pain, Tylenol given with relief. She is getting NSS +20 KCl at 125 cc/hr. Dudley catheter with fruit punch colored urine. Able to sleep most part of the night. Needs were attended. Will continue care plan.
[2020-08-20 06:34] LABS: Hematocrit 33.5 % (37-47); Hemoglobin 11.6 g/dl (12.0-16.0); Mean Corpuscular HGB Conc 34.6 g/dl (31.0-35.0); Mean Corpuscular Hemoglobin 32.3 pg (27.0-33.0); Mean Corpuscular Volume 93.3 fL (80-98); Mean Platelet Volume 9.3 fL (9.4-12.3); Platelet Count 273 X10*3/uL (160-400); Red Blood Count 3.59 X10*6/uL (4.20-5.50); Red Cell Distribution Width 12.6 % (11.0-16.0); White Blood Count 9.2 X10*3/uL (4.8-10.8)
[2020-08-20 07:12] LABS: Alanine Aminotransferase 20 U/L (0-31); Albumin Level 3.1 g/dL (3.5-5.0); Alkaline Phosphatase 92 U/L (39-117); Anion Gap 18 (12-20); Aspartate Amino Transferase 28 U/L (5-31); Bilirubin Direct 0.3 mg/dL (0.0-0.5); Bilirubin Total 0.4 mg/dL (0.0-1.0); Blood Urea Nitrogen 51 mg/dL (9-16); Calcium 8.5 mg/dL (8.4-10.2); Carbon Dioxide 26 mmol/L (22-29); Chloride 90 mmol/L (96-108); Creatinine Clr Calc Pharmacy 20.7; Estimated Glomerular Filt Rate 18; Glucose Random 104 mg/dL (60-115); Potassium 3.9 mmol/l (3.3-5.1); Sodium 130 mmol/L (135-145); Total Protein 6.3 g/dL (6.5-8.0)
[2020-08-20 07:19] LABS: Glucose, Whole Blood 88 mg/dL (60-115)
[2020-08-20] MEDS: Albuterol/Iprat 2.5/0.5MG 3 ML AMPUL.NEB INHALE ×4 (07:21→20:21)
[2020-08-20] MEDS: Fluticasone Propionate 250 MCG BLST.W.DEV 1 PUFF INHALE ×2 (07:26→20:21)
[2020-08-20] MEDS: Metoprolol Tartrate 25 MG TABLET 12.5 MG PO (09:27)
[2020-08-20] MEDS: Montelukast Sodium 10 MG TABLET PO (09:27)
[2020-08-20 11:19] LABS: Glucose, Whole Blood 181 mg/dL (60-115)
[2020-08-20] MEDS: Insulin Lispro 100 UNIT/ML 3 ML VIAL SUBCUT (13:05)
--- NOTE | 2020-08-20 14:14 | HO.PM.IMPN ---
Subjective Subjective Date of Service: 08/20/20 Interval History: The patient was seen and evaluated this morning Laying in bed, feels comfortable, mildly anxious and confused Denies any fever, chills or shortness of breath reports back pain Alert to person and place but not time No reported other overnight events. Systemic review: No fever, chills or weakness No chest pain, palpitation No shortness of breath or coughing No abdominal pain, nausea or vomiting No urinary symptoms No any rash or wounds Physical Exam Vital Signs: Vital Signs: Last Vital Signs Temp 97.6 F 08/20/20 11:06 Pulse 93 08/20/20 11:19 Resp 18 08/20/20 11:06 BP 142/76 H 08/20/20 11:06 Pulse Ox 98 08/20/20 11:06 Body Mass Index 26.0 Constitutional : Alert, oriented, not in distress Neck : Normal inspection, Supple Cardiovascular : RRR, S1 S2, no lower extremity edema Respiratory : Good bilateral air entry, no crackles, wheezes or rhonchi Gastrointestinal: soft, lax, Normal bowel sounds, Non tender Skin : Warm/Dry, No rash Neurological : Alert & oriented x3, No focal deficit, tremors when anxious Objective Data Current Medications Generic Name Dose Route Start Last Admin Trade Name Freq PRN Reason Stop Dose Admin Acetaminophen 650 mg 08/18/20 23:40 08/20/20 09:26 Acetaminophen 325 Mg Tablet PO 650 mg Q6H PRN Administration Pain, Mild (Pain Scale 1-3) Albuterol Sulfate 2 puff 08/19/20 08:16 Albuterol Sulfate 90 Mcg 8 Gm Inhaler INHALE Q4H PRN Shortness Of Breath Or Wheezin Albuterol/Ipratropium 3 ml 08/19/20 08:30 08/20/20 11:17 Albuterol/Iprat 2.5/0.5mg 3 Ml Ampul.Neb INHALE 3 ml RQID YUMIKO Administration Aspirin 81 mg 08/19/20 21:00 08/19/20 20:03 Aspirin Enteric Coated 81 Mg Tablet.Dr PO 81 mg BEDTIME YUMIKO Administration Fluticasone Propionate 1 puff 08/19/20 08:30 08/20/20 07:26 Fluticasone Propionate 250 Mcg Blst.W.Dev INHALE 1 puff RBID YUMIKO Administration Heparin Sodium (Porcine) 5,000 unit 08/18/20 23:40 08/20/20 13:06 Heparin Sodium,Porcine 5,000 Unit/Ml Vial SUBCUT 5,000 unit Q12H [facility]UM[facility]KO Administration Ceftriaxone Sodium 1 gm/ 50 mls @ 100 mls/hr 08/19/20 20:00 08/19/20 20:45 Sodium Chloride IV Infused Q24H YUMIKO Infusion Potassium Chloride/Sodium Chloride 20 meq in 1,000 mls @ 125 mls/hr 08/19/20 12:00 08/20/20 13:06 IVCONT 125 mls/hr .Q8H YUMIKO Administration Insulin Human Lispro 0 unit 08/18/20 23:40 08/20/20 13:05 Insulin Lispro 100 Unit/Ml 3 Ml Vial SUBCUT 2 unit QIDACHS [facility] Administration Protocol Metoprolol Tartrate 12.5 mg 08/19/20 09:00 08/20/20 09:27 Metoprolol Tartrate 25 Mg Tablet PO 12.5 mg DAILY Y[facility]IKO Administration Protocol Montelukast Sodium 10 mg 08/19/20 09:00 08/20/20 09:27 Montelukast Sodium 10 Mg Tablet PO 10 mg DAILY [facility] Administration Ondansetron HCl 4 mg 08/18/20 23:40 Ondansetron Hcl 4 Mg/2 Ml Vial IVPUSH Q8H PRN Nausea and Vomiting Pharmacy Consult 1 each 08/18/20 19:57 Consult Rx Perform Med Rec MISCELLANE ONCE PRN Consult order Pravastatin Sodium 40 mg 08/19/20 21:00 08/19/20 20:03 Pravastatin Sodium 40 Mg Tablet PO 40 mg BEDTIME [facility] Administration Sodium Chloride 3 ml 08/19/20 00:00 08/20/20 09:27 0.9 % Sodium Chloride Flush 3 Ml Syringe IVFLUSH 3 ml QSHIFT [facility] Administration Labs CBC & Chem 7: 08/20/20 05:57 08/20/20 05:57 Microbiology Microbiology Results: Microbiology 08/18/20 19:00 Blood - Venous Blood Culture - Preliminary Gram negative aristides 08/18/20 19:00 Blood - Venous Blood Culture - Preliminary Gram negative aristides 08/18/20 19:35 Urine clean catch - Clean Catch Midstream Urine Culture - Final Assessment and Plan (1) Altered mental status: Status: Acute (2) Acute UTI: Status: Acute (3) Acute metabolic encephalopathy: Status: Acute (4) Toxic encephalopathy: Status: Acute (5) Acute hyponatremia: Status: Acute Assessment and Plan: A 65-year-old female who is admitted with encephalopathy secondary to hyponatremia , UTI, SAGAR. Gram-negative bacteremia Likely secondary to Urinary tract infection Patient not septic blood cultures growing GNR , pending final sensitivity mixed growth in urine culture continue Rocephin Toxic/Metabolic encephalopathy. improving, more awake and oriented today could be secondary to UTI, hyponatremia, kidney injuryAnd medications normal CT scan of the head hold clonazepam, cyclobenzaprine, gabapentin, and Seroquel for today recurrent reorientation Hyponatremia. on diuretic at home. sodium improved to 130 this morning Urine studies suggesting true hyponatremia from hypovolemia Continue IV fluids Nephrology to follow monitor BMP Acute kidney injury Secondary to dehydration, medications, possible obstruction no obstruction on abdominal CT Creatinine 2.6With worsening BUN this morning continue IV fluids Nephrology to follow Diabetes mellitus. Sliding scale, ADA diet. Hold home medications for now. Deep vein thrombosis prophylaxis heparin. home
--- NOTE | 2020-08-20 14:50 | PM.PNNEP ---
Subjective Subjective Date of Service: 08/20/20 Interval history: seen and examined denies shortness of breath abdominal pain, nausea or vomiting Physical Exam Vital Signs: Vital Signs: Last Vital Signs Temp 97.6 F 08/20/20 11:06 Pulse 93 08/20/20 11:19 Resp 18 08/20/20 11:06 BP 142/76 H 08/20/20 11:06 Pulse Ox 98 08/20/20 11:06 Body Mass Index 26.0 Const: General: comfortable Neck: Neck: Yes supple Resp: Auscultation: diminished lung sounds Cardio: Heart sounds: S1 normal heart sound present and S2 normal heart sound present GI: Palpation (GI): Soft to palpation and nontender Extrem: General: No edema Assessment & Plan Assessment and plan (1) SAGAR (acute kidney injury): Status: Acute (2) Hyponatremia: Status: Acute Assessment and Plan: Scr up SAGAR due to renal hypoperfusion urine sodium < 20 cannot exclude acute tubular injury no obstruction normal baseline kidney function hypotonic hypovolemic hyponatremia REC IVF follow kidney function and electrolytes Time Spent With Patient Time: Total time spent is greater than 50% in coordination of care (as documented) at patient's floor/unit and/or counseling patient:
[2020-08-20] MEDS: Lidocaine 4 % Patch ADH..PATCH 1 PATCH TRANSDERMA (16:02)
[2020-08-20 16:29] LABS: Glucose, Whole Blood 71 mg/dL (60-115)
--- NOTE | 2020-08-20 17:54 | CONS_ITS ---
DATE OF SERVICE: 08/19/2020 HISTORY OF PRESENT ILLNESS: I was asked to see Belia, 65-year-old patient, presented to the hospital with altered mental status, was noted to have elevated serum creatinine and low serum sodium. According to the record, her called EMS because of her worsening weakness. At the time of the consultation, unable to give any history and most of the history is obtained from reviewing medical record. Chest x-ray was negative. Review of her vital signs show systolic blood pressure down to 100. PAST MEDICAL HISTORY: Remarkable for diabetes mellitus, hypertension, obstructive sleep apnea, coronary artery disease, history of NV, osteoarthritis, and bipolar disorder. PAST SURGICAL HISTORY: Notable for appendectomy, tracheostomy. MEDICATIONS: Outpatient were reviewed and included Seroquel, pravastatin, pantoprazole, metoprolol, metformin, gabapentin, furosemide, cyclobenzaprine, clonazepam, citalopram, baclofen, aspirin. ALLERGIES: SHE IS ALLERGY TO ADVAIR AND PAXIL. SOCIAL HISTORY: Unobtainable. FAMILY HISTORY: Negative for kidney disease according to the medical record. PHYSICAL EXAMINATION: VITAL SIGNS: Her blood pressure is 136/86, heart rate 75, respiratory rate 18, temperature 97.8. CONSTITUTIONAL: She looks her stated age. No acute distress. NEUROLOGIC: Confused. HEENT: Head, atraumatic and normocephalic. NECK: Supple. LUNGS: Good air entry bilaterally. CARDIOVASCULAR: S1, S2. Regular rate and rhythm. ABDOMEN: Soft, obese, nontender. EXTREMITIES: With trace peripheral edema. LABORATORY DATA: Showed sodium of 126, potassium of 3, chloride 82, CO2 of 31, BUN 41, creatinine 2.52. Urinalysis with yqy-[id number]-count rbc's and 76 to 150 wbc's. Urine sodium less than 20. Hemoglobin 10.9, white count 14, platelet count 257. IMPRESSION: 1. Acute kidney injury. 2. Hyponatremia. 3. Hypokalemia. This is the patient who presents with acute kidney injury most likely due to prerenal state. She has a urine sodium which is less than 20. The patient has normal baseline kidney function. I suspect that she has a hypotonic hypovolemic hyponatremia. We will avoid rapid correction and we will hold her diuretics. We would have her on normal saline and follow closely on kidney function, electrolytes and replace her potassium. Thank you for allowing me to participate in the care of this patient. MD MEGHANN Cornejo/DERRELL / [id number]
[2020-08-20 20:28] LABS: Glucose, Whole Blood 119 mg/dL (60-115)
[2020-08-20] MEDS: cefTRIAXone sodium 1 GM in 0.9 % Sodium Chloride 50 ML IV (21:10)
[2020-08-20] MEDS: Pravastatin Sodium 40 MG TABLET PO (21:11)
[2020-08-20] MEDS: Aspirin Enteric Coated 81 MG TABLET.DR PO (21:11)
[2020-08-21] VITALS (11 sets, daily range): BP systolic 104–173; BP diastolic 68–93; PULSE 22–120; RESP 17–18; TEMP 36.1–37; O2SAT 91–100
--- NOTE | 2020-08-21 | MR_ITS ---
EXAMINATION: MR BRAIN WITHOUT CONTRAST CLINICAL INFORMATION: Altered mental status. Delirium. COMPARISON: CT head from 08/19/2020. Brain MRI from 04/07/2016. TECHNIQUE: MRI of the brain was obtained using routine sequences without contrast. FINDINGS: Exam is significantly motion degraded. No focal restricted diffusion is demonstrated to suggest acute or subacute cerebral ischemia. No evidence of acute or chronic hemorrhagic products on heme-sensitive imaging. Scattered periventricular and deep white matter T2 FLAIR hyperintensities consistent with mild to moderate underlying microangiopathy. There is also apparent faintly increased T2 FLAIR signal within the cortex of the bilateral mesial temporal lobes, insular cortices, periaqueductal/periventricular kim matter, and dorsomedial thalami, some of which appears similar to exam from 2016. No definitive cortical expansion on standard T2 weighted imaging. No demonstrated associated restricted diffusion. No evidence of hydrocephalus. No midline shift. No extra-axial fluid collections. The cerebellar tonsils are normally positioned. Normal arterial and venous vascular flow voids are present. Normal, homogeneous marrow signal. Changes of left-sided mastoidectomy. Chronic opacification of the mastoids. Mild mucosal thickening of the paranasal sinuses. MR/MR head/brain wo con IMPRESSION: Exam is significantly motion degraded. No demonstrated abnormal restricted diffusion or evidence of intracranial hemorrhage. On T2 FLAIR imaging, there appears to be symmetric faintly increased signal within the mesial temporal lobe cortices, insular cortices, periaqueductal/periventricular kim matter, and dorsomedial thalami. Some of these changes may be artifactual given the degree of motion degradation. Furthermore, the changes in the mesial temporal lobe and insular cortices appear relatively similar to exam from 2016, arguing against an infectious/inflammatory encephalitis. The changes in the deep nuclei may be new compared to 2016 and could be seen in the setting of Wernicke encephalopathy in the appropriate clinical setting.
--- NOTE | 2020-08-21 | ECG_ITS ---
Test Reason : CP Blood Pressure : / mmHG Vent. Rate : 096 BPM Atrial Rate : 096 BPM P-R Int : 144 ms QRS Dur : 094 ms QT Int : 362 ms P-R-T Axes : 067 -22 -30 degrees QTc Int : 457 ms Sinus rhythm with Premature supraventricular complexes Low voltage QRS Incomplete right bundle branch block Nonspecific T wave abnormality Abnormal ECG When compared with ECG of 18-AUG-2020 17:12, Premature supraventricular complexes are now Present Inverted T waves have replaced nonspecific T wave abnormality in Inferior leads Heart rate has increased Referred By: Bianca Burnham Electronically Signed By:ALVARO SEVERINO MD
[2020-08-21] MEDS: 0.9 % Sodium Chloride Flush 3 ML SYRINGE IVFLUSH (01:43)
[2020-08-21 06:21] LABS: Hematocrit 32.3 % (37-47); Hemoglobin 11.1 g/dl (12.0-16.0); Mean Corpuscular HGB Conc 34.4 g/dl (31.0-35.0); Mean Corpuscular Hemoglobin 31.9 pg (27.0-33.0); Mean Corpuscular Volume 92.8 fL (80-98); Mean Platelet Volume 9.1 fL (9.4-12.3); Platelet Count 289 X10*3/uL (160-400); Red Blood Count 3.48 X10*6/uL (4.20-5.50); Red Cell Distribution Width 12.4 % (11.0-16.0); White Blood Count 7.4 X10*3/uL (4.8-10.8)
[2020-08-21 06:54] LABS: Anion Gap 16 (12-20); Blood Urea Nitrogen 46 mg/dL (9-16); Calcium 8.3 mg/dL (8.4-10.2); Carbon Dioxide 23 mmol/L (22-29); Chloride 94 mmol/L (96-108); Creatinine Clr Calc Pharmacy 21.7; Estimated Glomerular Filt Rate 19; Glucose Random 105 mg/dL (60-115); Potassium 3.7 mmol/l (3.3-5.1); Sodium 129 mmol/L (135-145)
[2020-08-21 07:51] LABS: Glucose, Whole Blood 98 mg/dL (60-115)
[2020-08-21] MEDS: Metoprolol Tartrate 25 MG TABLET 12.5 MG PO (08:19)
[2020-08-21] MEDS: Montelukast Sodium 10 MG TABLET PO (08:20)
[2020-08-21] MEDS: Lidocaine 4 % Patch ADH..PATCH 1 PATCH TRANSDERMA (08:20)
[2020-08-21] MEDS: Albuterol/Iprat 2.5/0.5MG 3 ML AMPUL.NEB INHALE ×4 (08:24→20:06)
[2020-08-21] MEDS: Fluticasone Propionate 250 MCG BLST.W.DEV 1 PUFF INHALE ×2 (08:24→20:09)
[2020-08-21 11:58] LABS: Glucose, Whole Blood 137 mg/dL (60-115)
--- NOTE | 2020-08-21 12:07 | MHC.CM.PN ---
CM received a call from Patient's Daughter/Lavern at [phone]. Lavern explained that Patient's is questioning if he is able to continue to manage Patient at home. CM asked MD to consider ordering a PT eval and MD is agreeable.KAMILA will continue to follow for dc planning.
--- NOTE | 2020-08-21 12:26 | MHC.CM.PN ---
Phone # for Patient's /Juanjo is [phone].
[2020-08-21] MEDS: Acetaminophen 325 MG TABLET 650 MG PO (13:09)
[2020-08-21] MEDS: Heparin Sodium,Porcine 5,000 UNIT/ML VIAL 5000 UNIT SUBCUT (13:09)
--- NOTE | 2020-08-21 13:31 | PM.PNNEP ---
Subjective Subjective Date of Service: 08/21/20 Interval history: seen and examined denies shortness of breath abdominal pain, nausea or vomiting Physical Exam Vital Signs: Vital Signs: Last Vital Signs Temp 98.0 F 08/21/20 11:50 Pulse 91 08/21/20 13:13 Resp 17 08/21/20 11:50 BP 173/80 H 08/21/20 13:13 Pulse Ox 97 08/21/20 13:13 Body Mass Index 26.0 Const: General: no acute distress Neck: Neck: Yes supple Resp: Auscultation: clear to auscultation bilaterally Cardio: Heart sounds: S1 normal heart sound present and S2 normal heart sound present GI: Palpation (GI): Soft to palpation and nontender Extrem: General: Yes no pedal edema Assessment & Plan Assessment and plan (1) SAGAR (acute kidney injury): Status: Acute (2) Hyponatremia: Status: Acute Assessment and Plan: Scr marginally better gram negative bacteremia SAGAR due to renal septic acute tubular injury urine sodium < 20 no obstruction normal baseline kidney function hypotonic hypovolemic hyponatremia REC discontinue IVF follow kidney function and electrolytes Time Spent With Patient Time: Total time spent is greater than 50% in coordination of care (as documented) at patient's floor/unit and/or counseling patient:
--- NOTE | 2020-08-21 13:34 | PM.PSYCN ---
History of Present Illness Date of Service: 08/21/2020 Chief Complaint: METABOLIC ENCEPHALOPATHY Reason for Consult: confusion Requesting physician: Bianca Burnham Discussed with referring provider: Yes Sources of Information: patient interviewed and chart reviewed Additional Sources of Information: Collateral information from Juanjo, patient's partner HPI Narrative: Patient is a 65 year old who is currently medically admitted with SAGAR, UTI and encephalopahthy. Consult requested as patient continues to be confused. Pt seen in room 461. She is awake, alert, very pleasant and engaged in interview. Oriented to person only, believed we were sitting in her living room having a conversation. Unable to be reoriented. She is observed to be pressing on the lid of her ice cream container and talking, when asked what she was doing she stated she was trying to dial the phone. She was laughing at several things including thinking she was seeing someone on the TV with a wig on, she believed this writers glasses were glowing and that my eyes were looking in different directions. Collateral from Kahlil: Patient has a distant history of psychiatric admissions for depression and attempted suicide via overdose. ALst admission was in [place] over 20 years ago He reports she has been increasingly confused over the last two weeks asking where she was, asking who he was. She was becoming increasingly angry and irritable and had been experiencing hallucinations (believed/saw a little boy in her living that was bothering her). He is clear that her current presentation is not her baseline. He also reports that patient regularly drinks around 6 beers a day. He states he stopped giving her beer about 2 weeks ago because he thought she was getting more depressed. He denies any hx of seizures, denies hx of treatment for alcohol use disorder, and is somewhat dismissive about contribution of alcohol/abrupt discontinuation and patients current presentation. Review of Systems Review of Systems Yes Unobtainable due to mental status Diagnostics Vital Signs (24Hr): Vital Signs - 24 hr 08/20/20 15:21 08/20/20 15:44 08/20/20 20:00 Temperature 98.8 F 98.5 F Pulse Rate 72 87 104 H Respiratory Rate 18 18 Blood Pressure 136/81 172/85 H Pulse Oximetry 98 100 08/20/20 20:24 08/20/20 23:50 08/21/20 04:00 Temperature 98.2 F 98.6 F Pulse Rate 84 100 99 Respiratory Rate 18 18 Blood Pressure 158/72 H 148/68 H Pulse Oximetry 98 97 08/21/20 08:00 08/21/20 08:25 08/21/20 11:40 Temperature 97.0 F Pulse Rate 106 H 100 22 L Respiratory Rate 18 Blood Pressure 162/91 H Pulse Oximetry 97 08/21/20 11:50 08/21/20 13:13 Temperature 98.0 F Pulse Rate 91 91 Respiratory Rate 17 Blood Pressure 173/80 H 173/80 H Pulse Oximetry 97 97 Body Mass Index 26.0 Labs Results: 08/21/20 05:53 08/21/20 05:53 Labs: Laboratory Results - last 48 hr 08/19/20 08/19/20 08/19/20 15:45 17:17 21:09 WBC RBC Hgb Hct MCV MCH MCHC RDW Plt Count MPV Absolute Nucleated RBC Nucleated RBC % (auto) Sodium 129 L Potassium 3.2 L Chloride 86 L Carbon Dioxide 32 H Anion Gap 14 BUN 44 H Creatinine 2.40 H Estim Creat Clear Calc 22.4 Estimated GFR 20 POC Glucose 115 123 H Random Glucose 103 Calcium 8.5 Total Bilirubin Direct Bilirubin AST ALT Alkaline Phosphatase Total Protein Albumin 08/20/20 08/20/20 08/20/20 05:57 05:57 07:13 WBC 9.2 RBC 3.59 L Hgb 11.6 L Hct 33.5 L MCV 93.3 MCH 32.3 MCHC 34.6 RDW 12.6 Plt Count 273 MPV 9.3 L Absolute Nucleated RBC 0.000 Nucleated RBC % (auto) 0.0 Sodium 130 L Potassium 3.9 D Chloride 90 L Carbon Dioxide 26 Anion Gap 18 BUN 51 H Creatinine 2.60 H Estim Creat Clear Calc 20.7 Estimated GFR 18 POC Glucose 88 Random Glucose 104 Calcium 8.5 Total Bilirubin 0.4 Direct Bilirubin 0.3 AST 28 ALT 20 Alkaline Phosphatase 92 Total Protein 6.3 L Albumin 3.1 L D 08/20/20 08/20/20 08/20/20 11:06 16:25 20:24 WBC RBC Hgb Hct MCV MCH MCHC RDW Plt Count MPV Absolute Nucleated RBC Nucleated RBC % (auto) Sodium Potassium Chloride Carbon Dioxide Anion Gap BUN Creatinine Estim Creat Clear Calc Estimated GFR POC Glucose 181 H 71 119 H Random Glucose Calcium Total Bilirubin Direct Bilirubin AST ALT Alkaline Phosphatase Total Protein Albumin 08/21/20 08/21/20 08/21/20 05:53 05:53 07:46 WBC 7.4 RBC 3.48 L Hgb 11.1 L Hct 32.3 L MCV 92.8 MCH 31.9 MCHC 34.4 RDW 12.4 Plt Count 289 MPV 9.1 L Absolute Nucleated RBC 0.000 Nucleated RBC % (auto) 0.0 Sodium 129 L Potassium 3.7 Chloride 94 L Carbon Dioxide 23 Anion Gap 16 BUN 46 H Creatinine 2.48 H Estim Creat Clear Calc 21.7 Estimated GFR 19 POC Glucose 98 Random Glucose 105 Calcium 8.3 L Total Bilirubin Direct Bilirubin AST ALT Alkaline Phosphatase Total Protein Albumin 08/21/20 11:49 WBC RBC Hgb Hct MCV MCH MCHC RDW Plt Count MPV Absolute Nucleated RBC Nucleated RBC % (auto) Sodium Potassium Chloride Carbon Dioxide Anion Gap BUN Creatinine Estim Creat Clear Calc Estimated GFR POC Glucose 137 H Random Glucose Calcium Total Bilirubin Direct Bilirubin AST ALT Alkaline Phosphatase Total Protein Albumin Imaging Radiology Impressions: ITS Impressions Chest X-Ray 08/18/20 16:41 IMPRESSION: No acute cardiopulmonary findings. Abdomen/Pelvis CT 08/19/20 00:00 IMPRESSION: No hydronephrosis or renal calculi. Hepatic steatosis. Head CT 08/19/20 00:00 IMPRESSION: No acute intracranial pathology. Chronic opacification of the mastoid air cells. Mental Status Exam Mental Status Exam Patient Appearance: Bizarre Patient Orientation: Person Level of Consciousness: Awake and Disoriented Patient Behavior: Talkative and Confused Mood Description: Cheerful Affect Description: Cheerful Patient Cognition Impaired: Yes Speech Pattern: Clear and Rambling Hallucinations: Visual Thought Process: Disoriented, Incoherent and Confusion Thought Content: positive for [place] and positive for Disorganized Judgement: Poor Medications Medications Current Medications Generic Name Dose Route Start Last Admin Trade Name Freq PRN Reason Stop Dose Admin Acetaminophen 650 mg 08/18/20 23:40 08/21/20 13:09 Acetaminophen 325 Mg Tablet PO 650 mg Q6H PRN Administration Pain, Mild (Pain Scale 1-3) Albuterol Sulfate 2 puff 08/19/20 08:16 Albuterol Sulfate 90 Mcg 8 Gm Inhaler INHALE Q4H PRN Shortness Of Breath Or Wheezin Albuterol/Ipratropium 3 ml 08/19/20 08:30 08/21/20 11:35 Albuterol/Iprat 2.5/0.5mg 3 Ml Ampul.Neb INHALE 3 ml RQID [facility] Administration Aspirin 81 mg 08/19/20 21:00 08/20/20 21:11 Aspirin Enteric Coated 81 Mg Tablet.Dr PO 81 mg BEDTIME [facility] Administration Fluticasone Propionate 1 puff 08/19/20 08:30 08/21/20 08:24 Fluticasone Propionate 250 Mcg Blst.W.Dev INHALE 1 puff RBID [facility] Administration Heparin Sodium (Porcine) 5,000 unit 08/18/20 23:40 08/21/20 13:09 Heparin Sodium,Porcine 5,000 Unit/Ml Vial SUBCUT 5,000 unit Q12H [facility] Administration Ceftriaxone Sodium 1 gm/ 50 mls @ 100 mls/hr 08/19/20 20:00 08/20/20 21:38 Sodium Chloride IV Infused Q24H [facility] Infusion Potassium Chloride/Sodium Chloride 20 meq in 1,000 mls @ 125 mls/hr 08/19/20 12:00 08/21/20 11:52 IVCONT 125 mls/hr .Q8H [facility] Administration Insulin Human Lispro 0 unit 08/18/20 23:40 08/21/20 11:51 Insulin Lispro 100 Unit/Ml 3 Ml Vial SUBCUT Not Given QIDACHS REPLACED BY [facility] Protocol Lidocaine 1 patch 08/20/20 14:20 08/21/20 08:20 Lidocaine 4 % Patch Adh..Patch TRANSDERMA 1 patch DAILY [facility] Administration Protocol Metoprolol Tartrate 12.5 mg 08/19/20 09:00 08/21/20 08:19 Metoprolol Tartrate 25 Mg Tablet PO 12.5 mg DAILY [facility] Administration Protocol Montelukast Sodium 10 mg 08/19/20 09:00 08/21/20 08:20 Montelukast Sodium 10 Mg Tablet PO 10 mg DAILY [facility] Administration Ondansetron HCl 4 mg 08/18/20 23:40 Ondansetron Hcl 4 Mg/2 Ml Vial IVPUSH Q8H PRN Nausea and Vomiting Pharmacy Consult 1 each 08/18/20 19:57 Consult Rx Perform Med Rec MISCELLANE ONCE PRN Consult order Pravastatin Sodium 40 mg 08/19/20 21:00 08/20/20 21:11 Pravastatin Sodium 40 Mg Tablet PO 40 mg BEDTIME [facility] Administration Sodium Chloride 3 ml 11/23/20 00:00 08/21/20 08:21 0.9 % Sodium Chloride Flush 3 Ml Syringe IVFLUSH Not Given QSHIFT [facility] Allergies Allergies Allergy/AdvReac Type Severity Reaction Status Date / Time advair Allergy Unknown Uncoded 11/10/19 00:00 paxil Allergy Unknown Uncoded 11/10/19 00:00 From [facility] AdvReac Intermediate NAUSEA & Uncoded 06/13/20 16:41 VOMITING Assessment & Plan Assessment & Plan (1) Acute metabolic encephalopathy: Status: Acute Code(s): G93.41 - Metabolic encephalopathy Recommendations: thiamine and folate ? Brianne based on history from partner Restart Klonopin at lower dose as she has been on 0.5mg TID for quite sometime--0.5mg BID Continue to hold seroquel for now (2) Alcohol use disorder: Status: Acute Greater than 50% of the session was spent on counseling and/or coordination of care
--- NOTE | 2020-08-21 15:10 | P.CNNE_ITS ---
History of Present Illness Data of Consult Service Date: 08/21/20 Primary Care Provider: Ryder Monique MD 65 years old obese woman with underlying history of COPD and bipolar disorder taking multiple medications including opioids who came to emergency room with confusion and generalized weakness. She was noted to be quite sleepy not able to provide any meaningful history. Her initial UA suggested UTI and her initial serum sodium was 121. She was treated appropriately and started to wake up but noted to be confused. There was no sign of any convulsion or seizure or focal weakness. There was no complaint of any pain. Review of Systems Review of Systems: No recent trauma seizure cold or flu-like illness headache or sudden change in personality. Otherwise review of system was reported i miranda. [facility] Social History Social History Household Members: Spouse Housing: Apartment Alcohol intake: never Smoking Status: Unknown if ever smoked Smoked in Last 30 Days: No Use of substances other than those prescribed or required for medical reasons: Unable to respond Currently Displaying Signs/Symptoms of Drug Intoxication Withdrawal: No Advance Directives: No Advance Directives Information Provided: Yes Do you have thoughts of harming others: None Do you have a plan to hurt others: No Plan Recently lost weight without trying: Unsure service: No Current occupational status: other Meds Allergies Allergy/AdvReac Type Severity Reaction Status Date / Time advair Allergy Unknown Uncoded 11/10/19 00:00 paxil Allergy Unknown Uncoded 11/10/19 00:00 From [facility] AdvReac Intermediate NAUSEA & Uncoded 06/13/20 16:41 VOMITING Home Medications Medication Instructions Recorded Confirmed Type albuterol sulfate [Ventolin HFA] 2 puff INHALATION Q4H PRN 08/18/20 08/18/20 History aspirin 1 tab PO BEDTIME 08/18/20 08/18/20 History citalopram 1 tab PO QAM 08/18/20 08/18/20 History clonazepam 1 tab PO TID 08/18/20 08/18/20 History fluticasone propionate [Flovent 1 puff INHALATION BID 08/18/20 08/18/20 History HFA] furosemide 3 tab PO QAM 08/18/20 08/18/20 History gabapentin 100 mg PO DAILY 08/18/20 08/18/20 History ipratropium-albuterol 1 amp INHALATION QID 08/18/20 08/18/20 History metformin 500 mg PO DAILY 08/18/20 08/18/20 History metoprolol tartrate 12.5 mg PO DAILY 08/18/20 08/18/20 History montelukast 1 tab PO DAILY 08/18/20 08/18/20 History pantoprazole 1 tab PO DAILY 08/18/20 08/18/20 History pravastatin 1 tab PO BEDTIME 08/18/20 08/18/20 History quetiapine 100 mg PO BID 08/18/20 08/18/20 History Physical Exam Vital Signs: Vital Signs: Last Vital Signs Temp 98.0 F 08/21/20 11:50 Pulse 91 08/21/20 13:13 Resp 17 08/21/20 11:50 BP 173/80 H 08/21/20 13:13 Pulse Ox 97 08/21/20 13:13 Body Mass Index 26.0 She was alert and awake talkative able to understand and follow commands. She denied any pain or headache. There was no nystagmus. Visual pedro are full. Face was symmetrical. There was no obvious focal weakness. Diffuse atrophy was noted in legs suggestive of chronic neuropathy. Deep tendon reflexes were trace to absent with bilateral extensor are equivocal plantars. There was no dyskinesia or tremor or abnormal posturing. Speech was okay. Results Labs CBC & Chem 7: 08/21/20 05:53 08/21/20 05:53 Labs: Short CBC 08/18/20 08/18/20 08/18/20 Range/Units 16:56 20:41 21:11 WBC (4.8-10.8) X10*3/uL Hgb (12.0-16.0) g/dl Hct (37-47) % Plt Count (160-400) X10*3/uL Sodium 121 L Cancelled 125 L (135-145) mmol/L 08/18/20 08/19/20 08/19/20 Range/Units 21:11 00:50 03:56 WBC (4.8-10.8) X10*3/uL Hgb (12.0-16.0) g/dl Hct (37-47) % Plt Count (160-400) X10*3/uL Sodium Cancelled 125 L 126 L (135-145) mmol/L 08/19/20 08/20/20 08/21/20 Range/Units 15:45 05:57 05:53 WBC 7.4 (4.8-10.8) X10*3/uL Hgb 11.1 L (12.0-16.0) g/dl Hct 32.3 L (37-47) % Plt Count 289 (160-400) X10*3/uL Sodium 129 L 130 L (135-145) mmol/L 08/21/20 Range/Units 05:53 WBC (4.8-10.8) X10*3/uL Hgb (12.0-16.0) g/dl Hct (37-47) % Plt Count (160-400) X10*3/uL Sodium 129 L (135-145) mmol/L BMP 08/21/20 05:53 Sodium 129 L Potassium 3.7 Chloride 94 L Carbon Dioxide 23 BUN 46 H Creatinine 2.48 H Calcium 8.3 L serum sodium somewhat has improved. Her head CT did not reveal any obvious acute lesion other than mild chronic microvascular ischemic changes. Chest x- ray did not reveal any significant finding. Abdominal CT was okay. Microbiology Microbiology Results: Microbiology 08/18/20 19:00 Blood - Venous Blood Culture - Final Escherichia coli 08/18/20 19:00 Blood - Venous Blood Culture - Final Escherichia coli 08/18/20 19:35 Urine clean catch - Clean Catch Midstream Urine Culture - Final Assessment and Plan (1) Acute metabolic encephalopathy: Status: Acute Acute multifactorial encephalopathy. Some of her conditions have been treated or improved. Sometime mental status legs behind and takes longer to recover. I would recommend followin. An MRI of brain without contrast 2. Add thiamine and folate 3. Check ammonia level (2) Acute hyponatremia: Status: Acute
--- NOTE | 2020-08-21 15:22 | P.PNIM_ITS ---
Subjective Subjective Date of Service: 08/21/20 Interval History: The patient was seen and evaluated this morning Laying in bed, feels comfortable, His seems confused and delirious, not aggressive or anxious Denies any fever, chills or shortness of breath Alert to person only No reported other overnight events. Systemic review: No fever, chills or weakness No chest pain, palpitation No shortness of breath or coughing No abdominal pain, nausea or vomiting No urinary symptoms No any rash or wounds Physical Exam Vital Signs: Vital Signs: Last Vital Signs Temp 98.0 F 08/21/20 11:50 Pulse 114 H 08/21/20 15:16 Resp 17 08/21/20 11:50 BP 173/80 H 08/21/20 13:13 Pulse Ox 97 08/21/20 13:13 Body Mass Index 26.0 Constitutional : Alert, disoriented to time and place, aware only of self and significant other, not in distress Neck : Normal inspection, Supple Cardiovascular : RRR, S1 S2, no lower extremity edema Respiratory : Good bilateral air entry, no crackles, wheezes or rhonchi Gastrointestinal: soft, lax, Normal bowel sounds, Non tender Skin : Warm/Dry, No rash Neurological : Alert & disoriented, No focal deficit Objective Data Current Medications Generic Name Dose Route Start Last Admin Trade Name Freq PRN Reason Stop Dose Admin Acetaminophen 650 mg 08/18/20 23:40 08/21/20 13:09 Acetaminophen 325 Mg Tablet PO 650 mg Q6H PRN Administration Pain, Mild (Pain Scale 1-3) Albuterol Sulfate 2 puff 08/19/20 08:16 Albuterol Sulfate 90 Mcg 8 Gm Inhaler INHALE Q4H PRN Shortness Of Breath Or Wheezin Albuterol/Ipratropium 3 ml 08/19/20 08:30 08/21/20 15:15 Albuterol/Iprat 2.5/0.5mg 3 Ml Ampul.Neb INHALE 3 ml RQID YUMIKO Administration Aspirin 81 mg 08/19/20 21:00 08/20/20 21:11 Aspirin Enteric Coated 81 Mg Tablet.Dr PO 81 mg BEDTIME YUM[facility]KO Administration Escitalopram Oxalate 40 mg 08/22/20 09:00 Escitalopram Oxalate 20 Mg Tablet PO DAILY [facility]KO Fluticasone Propionate 1 puff 08/19/20 08:30 08/21/20 08:24 Fluticasone Propionate 250 Mcg Blst.W.Dev INHALE 1 puff RBID [facility] Administration Folic Acid 1 mg 08/21/20 14:20 Folic Acid 1 Mg Tablet PO DAILY [facility] Heparin Sodium (Porcine) 5,000 unit 08/18/20 23:40 08/21/20 13:09 Heparin Sodium,Porcine 5,000 Unit/Ml Vial SUBCUT 5,000 unit Q12H [facility] Administration Ceftriaxone Sodium 1 gm/ 50 mls @ 100 mls/hr 08/19/20 20:00 08/20/20 21:38 Sodium Chloride IV Infused Q24H [facility] Infusion Insulin Human Lispro 0 unit 08/18/20 23:40 08/21/20 11:51 Insulin Lispro 100 Unit/Ml 3 Ml Vial SUBCUT Not Given QIDACHS [facility] Protocol Lidocaine 1 patch 08/20/20 14:20 08/21/20 08:20 Lidocaine 4 % Patch Adh..Patch TRANSDERMA 1 patch DAILY [facility] Administration Protocol Metoprolol Tartrate 12.5 mg 08/19/20 09:00 08/21/20 08:19 Metoprolol Tartrate 25 Mg Tablet PO 12.5 mg DAILY [facility] Administration Protocol Montelukast Sodium 10 mg 08/19/20 09:00 08/21/20 08:20 Montelukast Sodium 10 Mg Tablet PO 10 mg DAILY [facility] Administration Multivitamins/Vitamin C 1 tab 08/21/20 14:20 Multivitamin Tablet PO DAILY [facility] Ondansetron HCl 4 mg 08/18/20 23:40 Ondansetron Hcl 4 Mg/2 Ml Vial IVPUSH Q8H PRN Nausea and Vomiting Pharmacy Consult 1 each 08/18/20 19:57 Consult Rx Perform Med Rec MISCELLANE ONCE PRN Consult order Pravastatin Sodium 40 mg 08/19/20 21:00 08/20/20 21:11 Pravastatin Sodium 40 Mg Tablet PO 40 mg BEDTIME [facility] Administration Quetiapine Fumarate 25 mg 08/21/20 21:00 Quetiapine Fumarate 25 Mg Tablet PO BEDTIME [facility] Sodium Chloride 3 ml 08/19/20 00:00 08/21/20 08:21 0.9 % Sodium Chloride Flush 3 Ml Syringe IVFLUSH Not Given QSHIFT [facility] Thiamine HCl 100 mg 08/21/20 14:20 Thiamine Hcl 100 Mg Tablet PO DAILY [facility] Labs CBC & Chem 7: 08/21/20 05:53 11/25/20 05:53 Microbiology Microbiology Results: Microbiology 08/18/20 19:00 Blood - Venous Blood Culture - Final Escherichia coli 08/18/20 19:00 Blood - Venous Blood Culture - Final Escherichia coli 08/18/20 19:35 Urine clean catch - Clean Catch Midstream Urine Culture - Final Assessment and Plan (1) Altered mental status: Status: Acute (2) Acute UTI: Status: Acute (3) Acute metabolic encephalopathy: Status: Acute (4) Toxic encephalopathy: Status: Acute (5) Acute hyponatremia: Status: Acute Assessment and Plan: A 65-year-old female who is admitted with encephalopathy secondary to hyponatremia , UTI, SAGAR. Gram-negative bacteremia Likely secondary to Urinary tract infection Patient not septic blood cultures growing E.Coli mixed growth in urine culture continue Rocephin, to DC on Ceftin to finish 14 days Toxic/Metabolic encephalopathy. improving, still disoriented and delirious the of could be secondary to infection, chronic alcohol usage, kidney injury and meds normal CT scan of the head hold clonazepam, cyclobenzaprine, gabapentin Start low Does Seroquel at bedtime recurrent reorientation neurology input appreciated, likely multifactorial, to do MRI Psychiatry input appreciated, patient incompetent, restart low-dose Klonopin Hyponatremia. on diuretic at home. sodium improved to 129 this morning Urine studies suggesting true hyponatremia from hypovolemia discontinue IV fluids Nephrology input appreciated monitor BMP Acute kidney injury Secondary to dehydration, medications, possible obstruction no obstruction on abdominal CT Creatinine stable around 2.5 with stable BUN discontinue IV fluids Avoid nephrotoxic medications Diabetes mellitus. Sliding scale, ADA diet. Hold home medications for now. Deep vein thrombosis prophylaxis heparin. home
[2020-08-21] MEDS: Thiamine HCL 100 MG TABLET PO (15:36)
[2020-08-21] MEDS: Folic Acid 1 MG TABLET PO (15:36)
[2020-08-21] MEDS: Multivitamin TABLET 1 TAB PO (15:37)
[2020-08-21 16:14] LABS: Glucose, Whole Blood 128 mg/dL (60-115)
[2020-08-21] MEDS: cefTRIAXone sodium 1 GM in 0.9 % Sodium Chloride 50 ML IV (21:26)
[2020-08-21] MEDS: Aspirin Enteric Coated 81 MG TABLET.DR PO (21:31)
[2020-08-21] MEDS: clonazePAM 0.5 MG TABLET PO (21:31)
[2020-08-21] MEDS: QUEtiapine Fumarate 25 MG TABLET PO (21:31)
[2020-08-21] MEDS: Pravastatin Sodium 40 MG TABLET PO (21:31)
[2020-08-21 21:38] LABS: Glucose, Whole Blood 146 mg/dL (60-115)
[2020-08-22] VITALS (9 sets, daily range): BP systolic 129–165; BP diastolic 74–96; PULSE 100–131; RESP 18–20; TEMP 36.3–37.1; O2SAT 95–100
[2020-08-22] MEDS: 0.9 % Sodium Chloride Flush 3 ML SYRINGE IVFLUSH ×4 (01:11→23:32)
[2020-08-22] MEDS: Heparin Sodium,Porcine 5,000 UNIT/ML VIAL 5000 UNIT SUBCUT ×3 (01:11→23:32)
--- NOTE | 2020-08-22 01:22 | MHC.PIE ---
Addendum entered by Raudel Tamayo RN 08/22/20 02:42: Dr Mariano ordered IV benedryl & extra dose seroquel - given to patient. Patient still talking in room. Sitting in chair talking. Original Note: P: patient anxious, pleasant, asking to go home right now. frequently needing to be redirected. Received small doses clonapin & serophel bedtime. I: Frequent reorientation, redirection with ethiopian speaking staff. Dr Mariano made aware of patient increase anxiety / trying to get up.
[2020-08-22] MEDS: diphenhydrAMINE HCL 50 MG/ML VIAL 25 MG IVPUSH (01:58)
[2020-08-22] MEDS: QUEtiapine Fumarate 50 MG TABLET PO (01:59)
[2020-08-22 07:21] LABS: Ammonia 32 umol/L (13-55)
[2020-08-22 07:54] LABS: Alanine Aminotransferase 31 U/L (0-31); Alkaline Phosphatase 133 U/L (39-117); Anion Gap 17 (12-20); Aspartate Amino Transferase 40 U/L (5-31); Bilirubin Direct 0.3 mg/dL (0.0-0.5); Bilirubin Total 0.4 mg/dL (0.0-1.0); Blood Urea Nitrogen 46 mg/dL (9-16); Calcium 8.6 mg/dL (8.4-10.2); Carbon Dioxide 22 mmol/L (22-29); Chloride 94 mmol/L (96-108); Creatinine Clr Calc Pharmacy 19.3; Estimated Glomerular Filt Rate 17; Glucose Random 133 mg/dL (60-115); Potassium 3.4 mmol/l (3.3-5.1); Sodium 130 mmol/L (135-145); Total Protein 6.1 g/dL (6.5-8.0)
[2020-08-22] MEDS: Albuterol/Iprat 2.5/0.5MG 3 ML AMPUL.NEB INHALE ×4 (08:02→20:32)
[2020-08-22 08:03] LABS: Glucose, Whole Blood 143 mg/dL (60-115)
[2020-08-22] MEDS: Fluticasone Propionate 250 MCG BLST.W.DEV 1 PUFF INHALE (08:11)
[2020-08-22] MEDS: Metoprolol Tartrate 25 MG TABLET 12.5 MG PO (08:45)
[2020-08-22] MEDS: Montelukast Sodium 10 MG TABLET PO (08:46)
[2020-08-22] MEDS: Escitalopram Oxalate 20 MG TABLET 40 MG PO (08:46)
[2020-08-22] MEDS: Multivitamin TABLET 1 TAB PO (08:46)
[2020-08-22] MEDS: Thiamine HCL 100 MG TABLET PO (08:46)
[2020-08-22] MEDS: Folic Acid 1 MG TABLET PO (08:46)
--- NOTE | 2020-08-22 09:50 | PM.PNNEP ---
Subjective Subjective Date of Service: 08/22/20 Interval history: seen and examined feels comfortable confused no complaints Physical Exam Vital Signs: Vital Signs: Last Vital Signs Temp 97.8 F 08/22/20 07:25 Pulse 115 H 08/22/20 08:05 Resp 18 08/22/20 07:25 BP 135/86 08/22/20 07:25 Pulse Ox 98 08/22/20 07:25 Body Mass Index 26.0 Const: General: comfortable and confusion Orientation/consciousness: confusion Neck: Neck: Yes supple Resp: Auscultation: clear to auscultation bilaterally Cardio: Heart sounds: S1 normal heart sound present and S2 normal heart sound present GI: Palpation (GI): Soft to palpation and nontender Neuro: General: confusion Extrem: General: Yes no pedal edema Assessment & Plan Assessment and plan (1) SAGAR (acute kidney injury): Status: Acute (2) Hyponatremia: Status: Acute Assessment and Plan: kidney function at plateau gram negative bacteremia SAGAR due to septic acute tubular injury urine sodium < 20 initially no obstruction normal baseline kidney function hypotonic hypovolemic hyponatremia REC ABx follow kidney function and electrolytes Time Spent With Patient Time: Total time spent is greater than 50% in coordination of care (as documented) at patient's floor/unit and/or counseling patient:
[2020-08-22 11:38] LABS: Glucose, Whole Blood 142 mg/dL (60-115)
--- NOTE | 2020-08-22 13:47 | P.PNIM_ITS ---
Subjective Subjective Date of Service: 08/22/20 Interval History: the patient was seen and evaluated this morning Laying in bed, feels comfortable, confused at baseline Denies any fever, chills or shortness of breath Mildly confused and restless overnight Systemic review: No fever, chills or weakness No chest pain, palpitation No shortness of breath or coughing No abdominal pain, nausea or vomiting No urinary symptoms No any rash or wounds Physical Exam Vital Signs: Vital Signs: Last Vital Signs Temp 97.3 F 08/22/20 11: Pulse 102 H 08/22/20 12:34 Resp 20 08/22/20 11:22 BP 145/96 H 08/22/20 11:22 Pulse Ox 96 08/22/20 11:22 Body Mass Index 26.0 Constitutional : Alert, disoriented to time and place, aware only of self and significant other, not in distress Neck : Normal inspection, Supple Cardiovascular : RRR, S1 S2, no lower extremity edema Respiratory : Good bilateral air entry, no crackles, wheezes or rhonchi Gastrointestinal: soft, lax, Normal bowel sounds, Non tender Skin : Warm/Dry, No rash Neurological : Alert & disoriented, No focal deficit Objective Data Current Medications Generic Name Dose Route Start Last Admin Trade Name Freq PRN Reason Stop Dose Admin Acetaminophen 650 mg 08/18/20 23:40 08/21/20 13:09 Acetaminophen 325 Mg Tablet PO 650 mg Q6H PRN Administration Pain, Mild (Pain Scale 1-3) Albuterol Sulfate 2 puff 08/19/20 08:16 Albuterol Sulfate 90 Mcg 8 Gm Inhaler INHALE Q4H PRN Shortness Of Breath Or Wheezin Albuterol/Ipratropium 3 ml 08/19/20 08:30 08/22/20 12:33 Albuterol/Iprat 2.5/0.5mg 3 Ml Ampul.Neb INHALE 3 ml RQID YUMIKO Administration Aspirin 81 mg 08/19/20 21:00 08/21/20 21:31 Aspirin Enteric Coated 81 Mg Tablet.Dr PO 81 mg BEDTIME YUMIKO Administration Clonazepam 0.5 mg 08/21/20 21:00 08/21/20 21:31 Clonazepam 0.5 Mg Tablet PO 0.5 mg BEDTIME YUMIKO Administration Escitalopram Oxalate 40 mg 08/22/20 09:00 08/22/20 08:46 Escitalopram Oxalate 20 Mg Tablet PO 40 mg DAILY YUMIKO Administration Fluticasone Propionate 1 puff 08/19/20 08:30 08/22/20 08:11 Fluticasone Propionate 250 Mcg Blst.W.Dev INHALE 1 puff RBID YUMIKO Administration Folic Acid 1 mg 08/21/20 14:20 08/22/20 08:46 Folic Acid 1 Mg Tablet PO 1 mg DAILY YUMIKO Administration Heparin Sodium (Porcine) 5,000 unit 08/18/20 23:40 08/22/20 12:22 Heparin Sodium,Porcine 5,000 Unit/Ml Vial SUBCUT 5,000 unit Q12H YUMIKO Administration Ceftriaxone Sodium 1 gm/ 50 mls @ 100 mls/hr 08/19/20 20:00 08/21/20 22:16 Sodium Chloride IV Infused Q24H YUMIKO Infusion Insulin Human Lispro 0 unit 08/18/20 23:40 08/22/20 12:46 Insulin Lispro 100 Unit/Ml 3 Ml Vial SUBCUT Not Given QIDACHS [facility] Protocol Lidocaine 1 patch 08/20/20 14:20 08/22/20 08:45 Lidocaine 4 % Patch Adh..Patch TRANSDERMA Not Given DAILY [facility] Protocol Metoprolol Tartrate 12.5 mg 08/19/20 09:00 08/22/20 08:45 Metoprolol Tartrate 25 Mg Tablet PO 12.5 mg DAILY [facility] Administration Protocol Montelukast Sodium 10 mg 08/19/20 09:00 08/22/20 08:46 Montelukast Sodium 10 Mg Tablet PO 10 mg DAILY [facility] Administration Multivitamins/Vitamin C 1 tab 08/21/20 14:20 08/22/20 08:46 Multivitamin Tablet PO 1 tab DAILY [facility] Administration Ondansetron HCl 4 mg 08/18/20 23:40 Ondansetron Hcl 4 Mg/2 Ml Vial IVPUSH Q8H PRN Nausea and Vomiting Pharmacy Consult 1 each 08/18/20 19:57 Consult Rx Perform Med Rec MISCELLANE ONCE PRN Consult order Pravastatin Sodium 40 mg 08/19/20 21:00 08/21/20 21:31 Pravastatin Sodium 40 Mg Tablet PO 40 mg BEDTIME YUMIKO Administration Quetiapine Fumarate 25 mg 08/21/20 21:00 08/21/20 21:31 Quetiapine Fumarate 25 Mg Tablet PO 25 mg BEDTIME YUMIKO Administration Sodium Chloride 3 ml 08/19/20 00:00 08/22/20 08:46 0.9 % Sodium Chloride Flush 3 Ml Syringe IVFLUSH 3 ml QSHIFT YUMIKO Administration Thiamine HCl 100 mg 08/21/20 14:20 08/22/20 08:46 Thiamine Hcl 100 Mg Tablet PO 100 mg DAILY YUMIKO Administration Labs CBC & Chem 7: 08/21/20 05:53 08/22/20 06:15 Microbiology Microbiology Results: Microbiology 08/18/20 19:00 Blood - Venous Blood Culture - Final Escherichia coli 08/18/20 19:00 Blood - Venous Blood Culture - Final Escherichia coli 08/18/20 19:35 Urine clean catch - Clean Catch Midstream Urine Culture - Final Assessment and Plan (1) Altered mental status: Status: Acute (2) Acute UTI: Status: Acute (3) Acute metabolic encephalopathy: Status: Acute (4) Toxic encephalopathy: Status: Acute (5) Acute hyponatremia: Status: Acute Assessment and Plan: A 65-year-old female who is admitted with encephalopathy secondary to hyponatre cassie , UTI, SAGAR. E coli bacteremia Likely secondary to Urinary tract infection Patient not septic blood cultures growing E.Coli mixed growth in urine culture continue Rocephin D4/14 , to DC on Ceftin to finish 14 days Metabolic encephalopathy Secondary to Wernicke encephalopathy. still disoriented and delirious which seems to be her baseline normal CT scan of the head Brain MRI showing findings suggestive of Wernicke encephalopathy hold cyclobenzaprine, gabapentin Start low Does Seroquel at bedtime To use clonazepam bedtime as needed recurrent reorientation neurology input appreciated Psychiatry input appreciated, patient incompetent, restart low-dose Klonopin Hyponatremia. Urine studies suggesting true hyponatremia from hypovolemia Stable around 130 discontinue IV fluids Nephrology input appreciated Acute kidney injury Secondary to ATN no obstruction on abdominal CT Creatinine stable around 2.7 with stable BUN Avoid nephrotoxic medications Diabetes mellitus. Sliding scale, ADA diet. Hold home medications for now. Deep vein thrombosis prophylaxis heparin. home (6) SAGAR (acute kidney injury): Status: Acute (7) Hyponatremia: Status: Acute (8) Alcohol use disorder: Status: Acute (9) Wernicke encephalopathy: Status: Acute
[2020-08-22 16:17] LABS: Glucose, Whole Blood 129 mg/dL (60-115)
[2020-08-22] MEDS: cefTRIAXone sodium 1 GM in 0.9 % Sodium Chloride 50 ML IV (20:54)
[2020-08-22] MEDS: QUEtiapine Fumarate 25 MG TABLET PO (20:55)
[2020-08-22] MEDS: Aspirin Enteric Coated 81 MG TABLET.DR PO (20:55)
[2020-08-22] MEDS: Pravastatin Sodium 40 MG TABLET PO (20:55)
[2020-08-22 21:10] LABS: Glucose, Whole Blood 129 mg/dL (60-115)
[2020-08-23] VITALS (12 sets, daily range): BP systolic 115–157; BP diastolic 63–94; PULSE 87–111; RESP 18–20; TEMP 35.7–36.9; O2SAT 93–100
[2020-08-23] MEDS: Albuterol/Iprat 2.5/0.5MG 3 ML AMPUL.NEB INHALE ×4 (07:13→19:36)
[2020-08-23] MEDS: Fluticasone Propionate 250 MCG BLST.W.DEV 1 PUFF INHALE ×2 (07:13→19:36)
[2020-08-23] MEDS: Metoprolol Tartrate 25 MG TABLET 12.5 MG PO (07:54)
[2020-08-23] MEDS: Escitalopram Oxalate 20 MG TABLET 40 MG PO (07:54)
[2020-08-23] MEDS: 0.9 % Sodium Chloride Flush 3 ML SYRINGE IVFLUSH ×2 (07:54→15:12)
[2020-08-23] MEDS: Montelukast Sodium 10 MG TABLET PO (07:54)
[2020-08-23] MEDS: Folic Acid 1 MG TABLET PO (07:55)
[2020-08-23] MEDS: Multivitamin TABLET 1 TAB PO (07:55)
[2020-08-23] MEDS: Thiamine HCL 100 MG TABLET PO (07:55)
[2020-08-23] MEDS: Lidocaine 4 % Patch ADH..PATCH 1 PATCH TRANSDERMA (07:55)
[2020-08-23 08:03] LABS: Anion Gap 21 (12-20); Blood Urea Nitrogen 49 mg/dL (9-16); Calcium 8.4 mg/dL (8.4-10.2); Carbon Dioxide 21 mmol/L (22-29); Chloride 96 mmol/L (96-108); Creatinine Clr Calc Pharmacy 16.3; Estimated Glomerular Filt Rate 14; Glucose Random 106 mg/dL (60-115); Potassium 3.5 mmol/l (3.3-5.1); Sodium 134 mmol/L (135-145)
[2020-08-23 08:14] LABS: Glucose, Whole Blood 132 mg/dL (60-115)
[2020-08-23 11:36] LABS: Glucose, Whole Blood 125 mg/dL (60-115)
[2020-08-23] MEDS: Heparin Sodium,Porcine 5,000 UNIT/ML VIAL 5000 UNIT SUBCUT (11:42)
[2020-08-23] MEDS: Acetaminophen 325 MG TABLET 650 MG PO (11:42)
--- NOTE | 2020-08-23 11:46 | MHC.CM.PN ---
Valid HCP found in pts EMR. SNFs updated. Currently working to secure a bed for DC tomorrow.
--- NOTE | 2020-08-23 12:06 | P.PNIM_ITS ---
Subjective Subjective Date of Service: 08/23/20 Interval History: the patient was seen and evaluated this morning Laying in bed, feels comfortable, confused at baseline Complaining of right lower back pain Denies any fever, chills or shortness of breath Mildly confused and restless overnight Systemic review: No fever, chills or weakness No chest pain, palpitation No shortness of breath or coughing No abdominal pain, nausea or vomiting No urinary symptoms No any rash or wounds Physical Exam Vital Signs: Vital Signs: Last Vital Signs Temp 98.4 F 08/23/20 11:45 Pulse 99 08/23/20 11:45 Resp 18 08/23/20 11:45 BP 136/90 H 08/23/20 11:45 Pulse Ox 97 08/23/20 11:45 Body Mass Index 26.0 Constitutional : Alert, disoriented to time and place, aware only of self and significant other, not in distress Neck : Normal inspection, Supple Cardiovascular : RRR, S1 S2, no lower extremity edema Respiratory : Good bilateral air entry, no crackles, wheezes or rhonchi Gastrointestinal: soft, lax, Normal bowel sounds, Non tender Skin : Warm/Dry, No rash Neurological : Alert & disoriented, No focal deficit Objective Data Current Medications Generic Name Dose Route Start Last Admin Trade Name Freq PRN Reason Stop Dose Admin Acetaminophen 650 mg 08/18/20 23:40 08/23/20 11:42 Acetaminophen 325 Mg Tablet PO 650 mg Q6H PRN Administration Pain, Mild (Pain Scale 1-3) Albuterol Sulfate 2 puff 08/19/20 08:16 Albuterol Sulfate 90 Mcg 8 Gm Inhaler INHALE Q4H PRN Shortness Of Breath Or Wheezin Albuterol/Ipratropium 3 ml 08/19/20 08:30 08/23/20 11:27 Albuterol/Iprat 2.5/0.5mg 3 Ml Ampul.Neb INHALE 3 ml RQID YUMIKO Administration Aspirin 81 mg 08/19/20 21:00 08/22/20 20:55 Aspirin Enteric Coated 81 Mg Tablet.Dr PO 81 mg BEDTIME YUMIKO Administration Clonazepam 0.5 mg 08/23/20 21:00 Clonazepam 0.5 Mg Tablet PO BEDTIME YUMIKO Escitalopram Oxalate 40 mg 08/22/20 09:00 08/23/20 07:54 Escitalopram Oxalate 20 Mg Tablet PO 40 mg DAILY YUMIKO Administration Fluticasone Propionate 1 puff 08/19/20 08:30 08/23/20 07:13 Fluticasone Propionate 250 Mcg Blst.W.Dev INHALE 1 puff RBID YUMIKO Administration Folic Acid 1 mg 08/21/20 14:20 08/23/20 07:55 Folic Acid 1 Mg Tablet PO 1 mg DAILY YUMIKO Administration Heparin Sodium (Porcine) 5,000 unit 08/18/20 23:40 08/23/20 11:42 Heparin Sodium,Porcine 5,000 Unit/Ml Vial SUBCUT 5,000 unit Q12H YUMIKO Administration Ceftriaxone Sodium 1 gm/ 50 mls @ 100 mls/hr 08/19/20 20:00 08/22/20 22:12 Sodium Chloride IV Infused Q24H YUMIKO Infusion Insulin Human Lispro 0 unit 08/18/20 23:40 08/23/20 11:43 Insulin Lispro 100 Unit/Ml 3 Ml Vial SUBCUT Not Given QIDACHS [facility] Protocol Lidocaine 1 patch 08/20/20 14:20 08/23/20 07:55 Lidocaine 4 % Patch Adh..Patch TRANSDERMA 1 patch DAILY YUMIKO Administration Protocol Metoprolol Tartrate 12.5 mg 08/19/20 09:00 08/23/20 07:54 Metoprolol Tartrate 25 Mg Tablet PO 12.5 mg DAILY YUMIKO Administration Protocol Montelukast Sodium 10 mg 08/19/20 09:00 08/23/20 07:54 Montelukast Sodium 10 Mg Tablet PO 10 mg DAILY YUMIKO Administration Multivitamins/Vitamin C 1 tab 08/21/20 14:20 08/23/20 07:55 Multivitamin Tablet PO 1 tab DAILY YUMIKO Administration Ondansetron HCl 4 mg 08/18/20 23:40 Ondansetron Hcl 4 Mg/2 Ml Vial IVPUSH Q8H PRN Nausea and Vomiting Pharmacy Consult 1 each 08/18/20 19:57 Consult Rx Perform Med Rec MISCELLANE ONCE PRN Consult order Pravastatin Sodium 40 mg 08/19/20 21:00 08/22/20 20:55 Pravastatin Sodium 40 Mg Tablet PO 40 mg BEDTIME YUMIKO Administration Quetiapine Fumarate 25 mg 08/21/20 21:00 08/22/20 20:55 Quetiapine Fumarate 25 Mg Tablet PO 25 mg BEDTIME YUMIKO Administration Sodium Chloride 3 ml 08/19/20 00:00 08/23/20 07:54 0.9 % Sodium Chloride Flush 3 Ml Syringe IVFLUSH 3 ml QSHIFT YUMIKO Administration Thiamine HCl 100 mg 08/21/20 14:20 08/23/20 07:55 Thiamine Hcl 100 Mg Tablet PO 100 mg DAILY YUMIKO Administration Labs CBC & Chem 7: 08/21/20 05:53 08/23/20 05:31 Microbiology Microbiology Results: Microbiology 08/18/20 19:00 Blood - Venous Blood Culture - Final Escherichia coli 08/18/20 19:00 Blood - Venous Blood Culture - Final Escherichia coli 08/18/20 19:35 Urine clean catch - Clean Catch Midstream Urine Culture - Final Assessment and Plan (1) Altered mental status: Status: Acute (2) Acute UTI: Status: Acute (3) Acute metabolic encephalopathy: Status: Acute (4) Toxic encephalopathy: Status: Acute (5) Acute hyponatremia: Status: Acute Assessment and Plan: A 65-year-old female who is admitted with encephalopathy secondary to hyponatremia , UTI, SAGAR. E coli bacteremia Likely secondary to Urinary tract infection Patient not septic blood cultures growing E.Coli mixed growth in urine culture continue Rocephin D5/14 , to DC on Ceftin to finish 14 days Wernicke encephalopathy. still disoriented and delirious which seems to be her baseline normal CT scan of the head Brain MRI showing findings suggestive of Wernicke encephalopathy hold cyclobenzaprine, gabapentin Start low Dose Seroquel at bedtime Drug screen negative for benzos, discontinue clonazepam recurrent reorientation neurology input appreciated Psychiatry input appreciated, patient incompetent, restart low-dose Klonopin Hyponatremia. Urine studies suggesting true hyponatremia from hypovolemia Stable around 134 today IV fluids stopped Nephrology input appreciated Acute kidney injury Secondary to ATN creatinine worsening to 3.29 today, BUN stable no obstruction on abdominal CT intake and output fair Avoid nephrotoxic medications Diabetes mellitus. Sliding scale, ADA diet. Hold home medications for now. Deep vein thrombosis prophylaxis heparin. home (6) SAGAR (acute kidney injury): Status: Acute (7) Hyponatremia: Status: Acute (8) Alcohol use disorder: Status: Acute (9) Wernicke encephalopathy: Status: Acute
--- NOTE | 2020-08-23 13:16 | PM.PNNEP ---
Subjective Subjective Date of Service: 08/23/20 Interval history: seen and examined no complaints Physical Exam Vital Signs: Vital Signs: Last Vital Signs Temp 98.4 F 08/23/20 11:45 Pulse 99 08/23/20 11:45 Resp 18 08/23/20 11:45 BP 136/90 H 08/23/20 11:45 Pulse Ox 97 08/23/20 11:45 Body Mass Index 26.0 Const: General: comfortable Neck: Neck: Yes supple Resp: Auscultation: diminished lung sounds Cardio: Heart sounds: S1 normal heart sound present and S2 normal heart sound present GI: Palpation (GI): Soft to palpation and nontender Extrem: General: Yes no pedal edema Assessment & Plan Assessment and plan (1) SAGAR (acute kidney injury): Status: Acute (2) Hyponatremia: Status: Acute Assessment and Plan: kidney function worsening again gram negative bacteremia SAGAR due to septic acute tubular injury concern for acute glomerulonephritis patient with hematuria may need kidney biopsy will order serology work up urine sodium < 20 initially no obstruction normal baseline kidney function hypotonic hypovolemic hyponatremia REC ANCA titers anti GBM complement level C3 and C4 BETO urine protein to creatinine ratio follow kidney function and electrolytes Time Spent With Patient Time: Total time spent is greater than 50% in coordination of care (as documented) at patient's floor/unit and/or counseling patient:
--- NOTE | 2020-08-23 13:55 | MHC.CM.PN ---
[facility] [place] offering pt a bed. CM contacted pts daughter, Lavern ([phone]) and spoke to her and pts /HCP, Juanjo. They report they would like to accept the bed offer and are aware the pt will likely DC tomorrow.
[2020-08-23 16:18] LABS: Glucose, Whole Blood 118 mg/dL (60-115)
[2020-08-23 17:28] LABS: Creatinine Urine 49.56 mg/dL
[2020-08-23 17:45] LABS: Total Protein Urine Random 243 mg/dL (<12)
[2020-08-23 20:22] LABS: Glucose, Whole Blood 148 mg/dL (60-115)
[2020-08-23] MEDS: Pravastatin Sodium 40 MG TABLET PO (21:27)
[2020-08-23] MEDS: QUEtiapine Fumarate 25 MG TABLET PO (21:27)
[2020-08-23] MEDS: Aspirin Enteric Coated 81 MG TABLET.DR PO (21:27)
[2020-08-23] MEDS: cefTRIAXone sodium 1 GM in 0.9 % Sodium Chloride 50 ML IV (21:27)
[2020-08-24] VITALS (10 sets, daily range): BP systolic 134–171; BP diastolic 77–92; PULSE 92–120; RESP 18–20; TEMP 36.1–36.8; O2SAT 96–100
[2020-08-24] MEDS: Acetaminophen 325 MG TABLET 650 MG PO (00:09)
[2020-08-24] MEDS: Heparin Sodium,Porcine 5,000 UNIT/ML VIAL 5000 UNIT SUBCUT ×2 (00:09→12:51)
[2020-08-24] MEDS: 0.9 % Sodium Chloride Flush 3 ML SYRINGE IVFLUSH ×4 (00:10→20:47)
[2020-08-24 07:18] LABS: Glucose, Whole Blood 151 mg/dL (60-115)
[2020-08-24] MEDS: Albuterol/Iprat 2.5/0.5MG 3 ML AMPUL.NEB INHALE ×4 (07:23→19:35)
[2020-08-24] MEDS: Fluticasone Propionate 250 MCG BLST.W.DEV 1 PUFF INHALE ×2 (07:24→19:36)
[2020-08-24 07:49] LABS: Anion Gap 18 (12-20); Blood Urea Nitrogen 51 mg/dL (9-16); Calcium 8.4 mg/dL (8.4-10.2); Carbon Dioxide 22 mmol/L (22-29); Chloride 97 mmol/L (96-108); Creatinine Clr Calc Pharmacy 15.7; Estimated Glomerular Filt Rate 13; Glucose Random 122 mg/dL (60-115); Potassium 3.4 mmol/l (3.3-5.1); Sodium 134 mmol/L (135-145)
[2020-08-24] MEDS: Insulin Lispro 100 UNIT/ML 3 ML VIAL SUBCUT (09:50)
[2020-08-24] MEDS: Multivitamin TABLET 1 TAB PO (09:51)
[2020-08-24] MEDS: Escitalopram Oxalate 20 MG TABLET 40 MG PO (09:51)
[2020-08-24] MEDS: Lidocaine 4 % Patch ADH..PATCH 1 PATCH TRANSDERMA (09:51)
[2020-08-24] MEDS: Montelukast Sodium 10 MG TABLET PO (09:51)
[2020-08-24] MEDS: Metoprolol Tartrate 25 MG TABLET 12.5 MG PO (09:52)
[2020-08-24] MEDS: Folic Acid 1 MG TABLET PO (09:52)
[2020-08-24] MEDS: Thiamine HCL 100 MG TABLET PO (09:52)
[2020-08-24 11:22] LABS: Glucose, Whole Blood 107 mg/dL (60-115)
--- NOTE | 2020-08-24 11:50 | HO.PM.IMPN ---
Subjective Subjective Date of Service: 08/24/20 Interval History: the patient was seen and evaluated this morning Laying in bed, feels comfortable, confused at baseline Complaining of right lower back pain Denies any fever, chills or shortness of breath Mildly confused and restless overnight Systemic review: No fever, chills or weakness No chest pain, palpitation No shortness of breath or coughing No abdominal pain, nausea or vomiting No urinary symptoms No any rash or wounds Physical Exam Vital Signs: Vital Signs: Last Vital Signs Temp 98.2 F 08/24/20 11:15 Pulse 98 08/24/20 11:33 Resp 18 08/24/20 11:15 BP 149/91 H 08/24/20 11:15 Pulse Ox 97 08/24/20 11:15 Body Mass Index 26.0 Constitutional : Alert, disoriented, not in distress Neck : Normal inspection, Supple Cardiovascular : RRR, S1 S2, no lower extremity edema Respiratory : Good bilateral air entry, no crackles, wheezes or rhonchi Gastrointestinal: soft, lax, Normal bowel sounds, Non tender Skin : Warm/Dry, No rash Urinary; Hematuria , foleyy in place Neurological : Alert & oriented x3, No focal deficit Objective Data Current Medications Generic Name Dose Route Start Last Admin Trade Name Freq PRN Reason Stop Dose Admin Acetaminophen 650 mg 08/18/20 23:40 08/24/20 00:09 Acetaminophen 325 Mg Tablet PO 650 mg Q6H PRN Administration Pain, Mild (Pain Scale 1-3) Albuterol Sulfate 2 puff 08/19/20 08:16 Albuterol Sulfate 90 Mcg 8 Gm Inhaler INHALE Q4H PRN Shortness Of Breath Or Wheezin Albuterol/Ipratropium 3 ml 08/19/20 08:30 08/24/20 11:29 Albuterol/Iprat 2.5/0.5mg 3 Ml Ampul.Neb INHALE 3 ml RQID YUMIKO Administration Aspirin 81 mg 08/19/20 21:00 08/23/20 21:27 Aspirin Enteric Coated 81 Mg Tablet.Dr PO 81 mg BEDTIME YUMIKO Administration Escitalopram Oxalate 40 mg 08/22/20 09:00 08/24/20 09:51 Escitalopram Oxalate 20 Mg Tablet PO 40 mg DAILY YUMIKO Administration Fluticasone Propionate 1 puff 08/19/20 08:30 08/24/20 07:24 Fluticasone Propionate 250 Mcg Blst.W.Dev INHALE 1 puff RBID YUMIKO Administration Folic Acid 1 mg 08/21/20 14:20 08/24/20 09:52 Folic Acid 1 Mg Tablet PO 1 mg DAILY YUMIKO Administration Heparin Sodium (Porcine) 5,000 unit 08/18/20 23:40 08/24/20 00:09 Heparin Sodium,Porcine 5,000 Unit/Ml Vial SUBCUT 5,000 unit Q12H YUMIKO Administration Ceftriaxone Sodium 1 gm/ 50 mls @ 100 mls/hr 08/19/20 20:00 08/23/20 23:09 Sodium Chloride IV Infused Q24H YUMIKO Infusion Insulin Human Lispro 0 unit 08/18/20 23:40 08/24/20 09:50 Insulin Lispro 100 Unit/Ml 3 Ml Vial SUBCUT 2 unit QIDACHS YUMIKO Administration Protocol Lidocaine 1 patch 08/20/20 14:20 08/24/20 09:51 Lidocaine 4 % Patch Adh..Patch TRANSDERMA 1 patch DAILY YUMIKO Administration Protocol Metoprolol Tartrate 12.5 mg 08/19/20 09:00 08/24/20 09:52 Metoprolol Tartrate 25 Mg Tablet PO 12.5 mg DAILY YUMIKO Administration Protocol Montelukast Sodium 10 mg 08/19/20 09:00 08/24/20 09:51 Montelukast Sodium 10 Mg Tablet PO 10 mg DAILY YUMIKO Administration Multivitamins/Vitamin C 1 tab 08/21/20 14:20 08/24/20 09:51 Multivitamin Tablet PO 1 tab DAILY YUMIKO Administration Ondansetron HCl 4 mg 08/18/20 23:40 Ondansetron Hcl 4 Mg/2 Ml Vial IVPUSH Q8H PRN Nausea and Vomiting Pharmacy Consult 1 each 08/18/20 19:57 Consult Rx Perform Med Rec MISCELLANE ONCE PRN Consult order Pravastatin Sodium 40 mg 08/19/20 21:00 08/23/20 21:27 Pravastatin Sodium 40 Mg Tablet PO 40 mg BEDTIME YUMIKO Administration Quetiapine Fumarate 25 mg 08/21/20 21:00 08/23/20 21:27 Quetiapine Fumarate 25 Mg Tablet PO 25 mg BEDTIME YUMIKO Administration Sodium Chloride 3 ml 08/19/20 00:00 08/24/20 09:52 0.9 % Sodium Chloride Flush 3 Ml Syringe IVFLUSH 3 ml QSHIFT YUMIKO Administration Thiamine HCl 100 mg 08/21/20 14:20 08/24/20 09:52 Thiamine Hcl 100 Mg Tablet PO 100 mg DAILY YUMIKO Administration Labs CBC & Chem 7: 08/21/20 05:53 08/24/20 05:52 Microbiology Microbiology Results: Microbiology 08/18/20 19:00 Blood - Venous Blood Culture - Final Escherichia coli 08/18/20 19:00 Blood - Venous Blood Culture - Final Escherichia coli 08/18/20 19:35 Urine clean catch - Clean Catch Midstream Urine Culture - Final Assessment and Plan (1) Altered mental status: Status: Acute (2) Acute UTI: Status: Acute (3) Acute metabolic encephalopathy: Status: Acute (4) Toxic encephalopathy: Status: Acute (5) Acute hyponatremia: Status: Acute Assessment and Plan: A 65-year-old female who is admitted with encephalopathy secondary to hyponatremia , UTI, SAGAR. E coli bacteremia Likely secondary to Urinary tract infection Patient not septic blood cultures growing E.Coli mixed growth in urine culture continue Rocephin D6/14 , to DC on Ceftin to finish 14 days Acute kidney injury Secondary to ATN, possible GN creatinine worsening to 3.4 today, BUN 51 no obstruction on abdominal CT To check immunological studies might need kidney biopsy if no clear diagnosis intake and output Avoid nephrotoxic medications Nephrology input appreciated Wernicke encephalopathy. disoriented but calm and follow orders. seems to be her baseline normal CT scan of the head Brain MRI showing findings suggestive of Wernicke encephalopathy hold cyclobenzaprine, gabapentin continue low Dose Seroquel at bedtime Drug screen negative for benzos, discontinue clonazepam recurrent reorientation neurology input appreciated Psychiatry input appreciated, patient incompetent Hyponatremia true hyponatremia from hypovolemia Stable around 134 today IV fluids stopped Diabetes mellitus. Sliding scale, ADA diet. Hold home medications for now. Deep vein thrombosis prophylaxis heparin. home (6) SAGAR (acute kidney injury): Status: Acute (7) Hyponatremia: Status: Acute (8) Alcohol use disorder: Status: Acute (9) Wernicke encephalopathy: Status: Acute
--- NOTE | 2020-08-24 13:10 | PM.PNNEP ---
Subjective Subjective Date of Service: 08/24/20 Interval history: seen and examined no complaints Physical Exam Vital Signs: Vital Signs: Last Vital Signs Temp 98.2 F 08/24/20 11:15 Pulse 98 08/24/20 11:33 Resp 18 08/24/20 11:15 BP 149/91 H 08/24/20 11:15 Pulse Ox 97 08/24/20 11:15 Body Mass Index 26.0 Const: General: comfortable HENMT: Head: Yes normocephalic and Yes atraumatic Neck: Neck: Yes supple Resp: Auscultation: clear to auscultation bilaterally Cardio: Heart sounds: S1 normal heart sound present and S2 normal heart sound present GI: Palpation (GI): Soft to palpation and nontender Extrem: General: Yes no pedal edema Assessment & Plan Assessment and plan (1) SAGAR (acute kidney injury): Status: Acute (2) Hyponatremia: Status: Acute Assessment and Plan: Scr up nephrotic range proteiuria gram negative bacteremia SAGAR due to septic acute tubular injury concern for acute glomerulonephritis patient with hematuria she has nearly 5 grams proteinuria ANCA titers, anti GBM, complement level C3 and C4, BETO ordered urine sodium < 20 initially no obstruction normal baseline kidney function hypotonic hypovolemic hyponatremia REC may need kidney biopsy next week follow kidney function and electrolytes Time Spent With Patient Time: Total time spent is greater than 50% in coordination of care (as documented) at patient's floor/unit and/or counseling patient:
[2020-08-24 16:19] LABS: Glucose, Whole Blood 109 mg/dL (60-115)
[2020-08-24 20:24] LABS: Glucose, Whole Blood 102 mg/dL (60-115)
[2020-08-24] MEDS: Pravastatin Sodium 40 MG TABLET PO (20:47)
[2020-08-24] MEDS: Aspirin Enteric Coated 81 MG TABLET.DR PO (20:47)
[2020-08-24] MEDS: QUEtiapine Fumarate 25 MG TABLET PO (20:47)
[2020-08-24] MEDS: cefTRIAXone sodium 1 GM in 0.9 % Sodium Chloride 50 ML IV (20:47)
[2020-08-25] VITALS (11 sets, daily range): BP systolic 122–148; BP diastolic 74–91; PULSE 86–112; RESP 18–20; TEMP 36.2–37; O2SAT 94–100
--- NOTE | 2020-08-25 | ECG_ITS ---
Test Reason : CHEST PAIN Blood Pressure : / mmHG Vent. Rate : 093 BPM Atrial Rate : 093 BPM P-R Int : 142 ms QRS Dur : 098 ms QT Int : 434 ms P-R-T Axes : 054 -33 056 degrees QTc Int : 539 ms Normal sinus rhythm Left axis deviation Nonspecific T wave abnormality Abnormal ECG When compared to the previous EKG of Nonspecific T wave abnormality now evident in precordial leads Referred By: Bianca Burnham Electronically Signed By:CAMPOS KELLER MD
[2020-08-25] MEDS: Heparin Sodium,Porcine 5,000 UNIT/ML VIAL 5000 UNIT SUBCUT ×3 (00:26→23:15)
[2020-08-25 07:05] LABS: Hematocrit 31.4 % (37-47); Hemoglobin 10.7 g/dl (12.0-16.0); Mean Corpuscular HGB Conc 34.1 g/dl (31.0-35.0); Mean Corpuscular Hemoglobin 31.8 pg (27.0-33.0); Mean Corpuscular Volume 93.2 fL (80-98); Mean Platelet Volume 9.2 fL (9.4-12.3); Platelet Count 413 X10*3/uL (160-400); Red Blood Count 3.37 X10*6/uL (4.20-5.50); White Blood Count 6.4 X10*3/uL (4.8-10.8)
[2020-08-25 07:30] LABS: Anion Gap 20 (12-20); Blood Urea Nitrogen 48 mg/dL (9-16); Calcium 8.4 mg/dL (8.4-10.2); Carbon Dioxide 22 mmol/L (22-29); Chloride 97 mmol/L (96-108); Creatinine Clr Calc Pharmacy 15.9; Estimated Glomerular Filt Rate 14; Glucose Random 107 mg/dL (60-115); Potassium 3.5 mmol/l (3.3-5.1); Sodium 135 mmol/L (135-145)
[2020-08-25] MEDS: Fluticasone Propionate 250 MCG BLST.W.DEV 1 PUFF INHALE ×2 (07:34→19:38)
[2020-08-25] MEDS: Albuterol/Iprat 2.5/0.5MG 3 ML AMPUL.NEB INHALE ×4 (07:34→19:27)
[2020-08-25 07:37] LABS: Glucose, Whole Blood 108 mg/dL (60-115)
[2020-08-25] MEDS: Metoprolol Tartrate 25 MG TABLET 12.5 MG PO (08:35)
[2020-08-25] MEDS: 0.9 % Sodium Chloride Flush 3 ML SYRINGE IVFLUSH ×3 (08:35→23:16)
[2020-08-25] MEDS: Montelukast Sodium 10 MG TABLET PO (08:35)
[2020-08-25] MEDS: Thiamine HCL 100 MG TABLET PO (08:35)
[2020-08-25] MEDS: Lidocaine 4 % Patch ADH..PATCH 1 PATCH TRANSDERMA (08:36)
[2020-08-25] MEDS: Escitalopram Oxalate 20 MG TABLET 40 MG PO (08:36)
[2020-08-25] MEDS: Folic Acid 1 MG TABLET PO (08:36)
[2020-08-25] MEDS: Multivitamin TABLET 1 TAB PO (08:36)
[2020-08-25 11:07] LABS: Glucose, Whole Blood 141 mg/dL (60-115)
[2020-08-25] MEDS: Acetaminophen 325 MG TABLET 650 MG PO (11:34)
--- NOTE | 2020-08-25 12:12 | P.PNIM_ITS ---
Subjective Subjective Date of Service: 08/25/20 Interval History: the patient was seen and evaluated this morning Laying in bed, feels comfortable, confused at baseline Complaining of right lower back pain and right-sided to central chest pain Denies any fever, chills or shortness of breath Mildly confused and restless overnight Systemic review: No fever, chills or weakness No chest pain, palpitation No shortness of breath or coughing No abdominal pain, nausea or vomiting No urinary symptoms No any rash or wounds Physical Exam Vital Signs: Vital Signs: Last Vital Signs Temp 97.2 F 08/25/20 07:17 Pulse 86 08/25/20 11:19 Resp 18 08/25/20 07:17 BP 138/74 08/25/20 08:35 Pulse Ox 98 08/25/20 07:17 Body Mass Index 26.0 Constitutional : Alert, disoriented, not in distress Neck : Normal inspection, Supple Cardiovascular : RRR, S1 S2, no lower extremity edema Respiratory : Good bilateral air entry, no crackles, wheezes or rhonchi Gastrointestinal: soft, lax, Normal bowel sounds, Non tender Skin : Warm/Dry, No rash Urinary; mild Hematuria , purwick catheter Neurological : Alert & disoriented, No focal deficit Objective Data Current Medications Generic Name Dose Route Start Last Admin Trade Name Freq PRN Reason Stop Dose Admin Acetaminophen 650 mg 08/18/20 23:40 08/25/20 11:34 Acetaminophen 325 Mg Tablet PO 650 mg Q6H PRN Administration Pain, Mild (Pain Scale 1-3) Albuterol Sulfate 2 puff 08/19/20 08:16 Albuterol Sulfate 90 Mcg 8 Gm Inhaler INHALE Q4H PRN Shortness Of Breath Or Wheezin Albuterol/Ipratropium 3 ml 08/19/20 08:30 08/25/20 11:15 Albuterol/Iprat 2.5/0.5mg 3 Ml Ampul.Neb INHALE 3 ml RQID YUMIKO Administration Aspirin 81 mg 08/19/20 21:00 08/24/20 20:47 Aspirin Enteric Coated 81 Mg Tablet.Dr PO 81 mg BEDTIME YUMIKO Administration Escitalopram Oxalate 40 mg 08/22/20 09:00 08/25/20 08:36 Escitalopram Oxalate 20 Mg Tablet PO 40 mg DAILY YUMIKO Administration Fluticasone Propionate 1 puff 08/19/20 08:30 08/25/20 07:34 Fluticasone Propionate 250 Mcg Blst.W.Dev INHALE 1 puff RBID YUMIKO Administration Folic Acid 1 mg 08/21/20 14:20 08/25/20 08:36 Folic Acid 1 Mg Tablet PO 1 mg DAILY YUMIKO Administration Heparin Sodium (Porcine) 5,000 unit 08/18/20 23:40 08/25/20 11:34 Heparin Sodium,Porcine 5,000 Unit/Ml Vial SUBCUT 5,000 unit Q12H YUMIKO Administration Ceftriaxone Sodium 1 gm/ 50 mls @ 100 mls/hr 08/19/20 20:00 08/24/20 21:24 Sodium Chloride IV Infused Q24H YUMIKO Infusion Insulin Human Lispro 0 unit 08/18/20 23:40 08/25/20 11:47 Insulin Lispro 100 Unit/Ml 3 Ml Vial SUBCUT Not Given QIDACHS [facility] Protocol Lidocaine 1 patch 08/20/20 14:20 08/25/20 08:36 Lidocaine 4 % Patch Adh..Patch TRANSDERMA 1 patch DAILY YUMIKO Administration Protocol Metoprolol Tartrate 12.5 mg 08/19/20 09:00 08/25/20 08:35 Metoprolol Tartrate 25 Mg Tablet PO 12.5 mg DAILY YUMIKO Administration Protocol Montelukast Sodium 10 mg 08/19/20 09:00 08/25/20 08:35 Montelukast Sodium 10 Mg Tablet PO 10 mg DAILY YUMIKO Administration Multivitamins/Vitamin C 1 tab 08/21/20 14:20 08/25/20 08:36 Multivitamin Tablet PO 1 tab DAILY YUMIKO Administration Ondansetron HCl 4 mg 08/18/20 23:40 Ondansetron Hcl 4 Mg/2 Ml Vial IVPUSH Q8H PRN Nausea and Vomiting Pharmacy Consult 1 each 08/18/20 19:57 Consult Rx Perform Med Rec MISCELLANE ONCE PRN Consult order Pravastatin Sodium 40 mg 08/19/20 21:00 08/24/20 20:47 Pravastatin Sodium 40 Mg Tablet PO 40 mg BEDTIME UYMIKO Administration Quetiapine Fumarate 25 mg 08/21/20 21:00 08/24/20 20:47 Quetiapine Fumarate 25 Mg Tablet PO 25 mg BEDTIME YUMIKO Administration Sodium Chloride 3 ml 08/19/20 00:00 08/25/20 08:35 0.9 % Sodium Chloride Flush 3 Ml Syringe IVFLUSH 3 ml QSHIFT YUMIKO Administration Thiamine HCl 100 mg 08/21/20 14:20 08/25/20 08:35 Thiamine Hcl 100 Mg Tablet PO 100 mg DAILY YUMIKO Administration Labs CBC & Chem 7: 08/25/20 06:40 08/25/20 06:40 Microbiology Microbiology Results: Microbiology 08/18/20 19:00 Blood - Venous Blood Culture - Final Escherichia coli 08/18/20 19:00 Blood - Venous Blood Culture - Final Escherichia coli 08/18/20 19:35 Urine clean catch - Clean Catch Midstream Urine Culture - Final Assessment and Plan (1) Altered mental status: Status: Acute (2) Acute UTI: Status: Acute (3) Acute metabolic encephalopathy: Status: Acute (4) Toxic encephalopathy: Status: Acute (5) Acute hyponatremia: Status: Acute Assessment and Plan: A 65-year-old female who is admitted with encephalopathy secondary to hyponatremia , UTI, SAGAR. E coli bacteremia Likely secondary to Urinary tract infection Patient not septic blood cultures growing E.Coli mixed growth in urine culture continue Rocephin D7/14 , to DC on Ceftin to finish 14 days Acute kidney injury Secondary to ATN, possible GN creatinine gradually worsening, 3.4 today no obstruction on abdominal CT pending immunological studies might need kidney biopsy if no clear diagnosis strict intake and output Avoid nephrotoxic medications Nephrology input appreciated Wernicke encephalopathy. disoriented but calm and follow orders. seems to be her baseline normal CT scan of the head Brain MRI showing findings suggestive of Wernicke encephalopathy discontinue cyclobenzaprine, gabapentin continue low Dose Seroquel at bedtime Drug screen negative for benzos, discontinue clonazepam recurrent reorientation neurology input appreciated Psychiatry input appreciated, patient incompetent Hyponatremia true hyponatremia from hypovolemia Stable around 134 IV fluids stopped Diabetes mellitus. Sliding scale, ADA diet. Hold home medications for now. Deep vein thrombosis prophylaxis heparin. home disposition, patient came from home. Her significant other a 70 years old and he does not think he can take care of her anymore. 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 (6) SAGAR (acute kidney injury): Status: Acute (7) Hyponatremia: Status: Acute (8) Alcohol use disorder: Status: Acute (9) Wernicke encephalopathy: Status: Acute
--- NOTE | 2020-08-25 12:16 | PM.PNNEP ---
Subjective Subjective Date of Service: 08/25/20 Interval history: seen and examined denies sob, nausea, vomiting diarrhea Physical Exam Vital Signs: Vital Signs: Last Vital Signs Temp 97.2 F 08/25/20 07:17 Pulse 86 08/25/20 11:19 Resp 18 08/25/20 07:17 BP 138/74 08/25/20 08:35 Pulse Ox 98 08/25/20 07:17 Body Mass Index 26.0 Const: General: no acute distress HENMT: Head: Yes normocephalic and Yes atraumatic Neck: Neck: Yes supple Resp: Auscultation: clear to auscultation bilaterally Cardio: Heart sounds: S1 normal heart sound present and S2 normal heart sound present GI: Palpation (GI): Soft to palpation, nontender and no guarding Extrem: General: Yes no pedal edema Assessment & Plan Assessment and plan (1) SAGAR (acute kidney injury): Status: Acute (2) Hyponatremia: Status: Acute Assessment and Plan: serum creatinine hopefully at peak nephrotic range proteinuria gram negative bacteremia SAGAR due to septic acute tubular injury concern for acute glomerulonephritis patient with hematuria she has nearly 5 grams proteinuria ANCA titers, anti GBM, complement level C3 and C4, BETO ordered and pending urine sodium < 20 initially no obstruction normal baseline kidney function hypotonic hypovolemic hyponatremia resolved REC if kidney function does not improve and depending on serology may need kidney biopsy next week follow kidney function and electrolytes Time Spent With Patient Time: Total time spent is greater than 50% in coordination of care (as documented) at patient's floor/unit and/or counseling patient:
--- NOTE | 2020-08-25 14:34 | PC.NURSE ---
1130- Pt c/o R sided chest pain after walking to bathroom [id number]. Pt stated it is worse when takes a deep breathe. Given PRN Tylenol at 1134. [address] Geronimo at bedside, pt c/o of chest pain across entire upper chest. Dr. Burnham made aware. EKG ordered, WNL. Pt stated pain improving with Tylenol. No new orders. Will continue to monitor.
[2020-08-25 17:06] LABS: Glucose, Whole Blood 105 mg/dL (60-115)
[2020-08-25 20:41] LABS: Glucose, Whole Blood 117 mg/dL (60-115)
[2020-08-25] MEDS: cefTRIAXone sodium 1 GM in 0.9 % Sodium Chloride 50 ML IV (21:16)
[2020-08-25] MEDS: QUEtiapine Fumarate 25 MG TABLET PO (21:16)
[2020-08-25] MEDS: Pravastatin Sodium 40 MG TABLET PO (21:16)
[2020-08-25] MEDS: Aspirin Enteric Coated 81 MG TABLET.DR PO (21:16)
[2020-08-26] VITALS (8 sets, daily range): BP systolic 111–146; BP diastolic 56–92; PULSE 65–103; RESP 18–20; TEMP 36.1–36.7; O2SAT 94–98
[2020-08-26 06:29] LABS: Hematocrit 30.3 % (37-47); Hemoglobin 10.6 g/dl (12.0-16.0); Mean Corpuscular Hemoglobin 32.3 pg (27.0-33.0); Mean Corpuscular Volume 92.4 fL (80-98); Mean Platelet Volume 9.2 fL (9.4-12.3); Platelet Count 454 X10*3/uL (160-400); Red Blood Count 3.28 X10*6/uL (4.20-5.50); Red Cell Distribution Width 13.1 % (11.0-16.0)
[2020-08-26 06:49] LABS: Anion Gap 17 (12-20); Blood Urea Nitrogen 43 mg/dL (9-16); Calcium 8.3 mg/dL (8.4-10.2); Carbon Dioxide 24 mmol/L (22-29); Chloride 97 mmol/L (96-108); Estimated Glomerular Filt Rate 15; Glucose Random 116 mg/dL (60-115); Potassium 3.2 mmol/l (3.3-5.1); Sodium 135 mmol/L (135-145)
[2020-08-26 07:19] LABS: Glucose, Whole Blood 115 mg/dL (60-115)
[2020-08-26] MEDS: Albuterol/Iprat 2.5/0.5MG 3 ML AMPUL.NEB INHALE (07:24)
[2020-08-26] MEDS: Fluticasone Propionate 250 MCG BLST.W.DEV 1 PUFF INHALE ×2 (07:40→20:07)
[2020-08-26] MEDS: Montelukast Sodium 10 MG TABLET PO (07:59)
[2020-08-26] MEDS: 0.9 % Sodium Chloride Flush 3 ML SYRINGE IVFLUSH ×3 (07:59→21:40)
[2020-08-26] MEDS: Thiamine HCL 100 MG TABLET PO (07:59)
[2020-08-26] MEDS: Folic Acid 1 MG TABLET PO (07:59)
[2020-08-26] MEDS: Metoprolol Tartrate 25 MG TABLET 12.5 MG PO (07:59)
[2020-08-26] MEDS: Escitalopram Oxalate 20 MG TABLET 40 MG PO (08:00)
[2020-08-26] MEDS: Multivitamin TABLET 1 TAB PO (08:00)
[2020-08-26] MEDS: Lidocaine 4 % Patch ADH..PATCH 1 PATCH TRANSDERMA (08:01)
[2020-08-26] MEDS: Potassium Chloride Packet 20 MEQ PACKET PO (08:45)
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
--- NOTE | 2020-08-26 10:23 | PM.PNNEP ---
Subjective Subjective Date of Service: 08/26/20 Interval history: seen and examined Overall feeling better and wants to go home denies sob, nausea, vomiting diarrhea Physical Exam Vital Signs: Vital Signs: Last Vital Signs Temp 97.9 F 08/26/20 07:55 Pulse 93 08/26/20 07:59 Resp 18 08/26/20 07:55 BP 146/92 H 08/26/20 07:59 Pulse Ox 98 08/26/20 07:55 Body Mass Index 26.0 Const: General: comfortable, no acute distress and confusion Orientation/consciousness: confusion HENMT: Head: Yes normocephalic and Yes atraumatic Neck: Neck: Yes supple Resp: Auscultation: clear to auscultation bilaterally and diminished lung sounds Cardio: Heart sounds: S1 normal heart sound present and S2 normal heart sound present GI: Palpation (GI): Soft to palpation, nontender and no guarding Neuro: General: confusion Extrem: General: Yes no pedal edema and No edema Assessment & Plan Assessment and plan (1) SAGAR (acute kidney injury): Status: Acute (2) Hyponatremia: Status: Acute Assessment and Plan: SAGAR: w/u inprogress; SCr slt better today but still a ques of AGN given abnl Urine studies vs ATN from sepsis; sero pending Uprot: singinf elveated BUT may ne falsely overest in stting of SAGAR ( low Ucr) Ecili bacteremia AMS: w/u in progress DM REC: repeat urine studies; track SCr and await sero ..may need kidney Bx later this week ( d/c asprin in prep of possible kidney Bx); check serum iF Time Spent With Patient Time: Total time spent is greater than 50% in coordination of care (as documented) at patient's floor/unit and/or counseling patient:
[2020-08-26] MEDS: Heparin Sodium,Porcine 5,000 UNIT/ML VIAL 5000 UNIT SUBCUT (11:17)
[2020-08-26 11:26] LABS: Glucose, Whole Blood 126 mg/dL (60-115)
[2020-08-26 13:37] LABS: Complement C3 147 mg/dL (83-193)
--- NOTE | 2020-08-26 13:56 | HO.PM.IMPN ---
Subjective Subjective Date of Service: 08/26/20 Interval History: patient seen and examined at bedside denies any complaint Review of Systems No recent trauma seizure cold or flu-like illness headache or sudden change in personality. Otherwise review of system was reported initially. Neurologic Neurologic: Reports confusion Psychiatric Psychiatric: Reports confusion Physical Exam Vital Signs: Vital Signs: Last Vital Signs Temp 98.0 F 08/26/20 11:32 Pulse 95 08/26/20 11:32 Resp 18 08/26/20 11:32 BP 126/80 08/26/20 11:32 Pulse Ox 97 08/26/20 11:32 Body Mass Index 26.0 Const: General: confusion Orientation/consciousness: confusion Resp: Effort & Inspection: normal respiratory effort Auscultation: clear to auscultation bilaterally Cardio: Jugular venous distension: no JVD GI: Inspection: Yes normal to inspection Skin: General skin exam: no rashes or lesions noted Neuro: General: confusion Objective Data Current Medications Generic Name Dose Route Start Last Admin Trade Name Freq PRN Reason Stop Dose Admin Acetaminophen 650 mg 08/18/20 23:40 08/25/20 11:34 Acetaminophen 325 Mg Tablet PO 650 mg Q6H PRN Administration Pain, Mild (Pain Scale 1-3) Albuterol Sulfate 2 puff 08/19/20 08:16 Albuterol Sulfate 90 Mcg 8 Gm Inhaler INHALE Q4H PRN Shortness Of Breath Or Wheezin Escitalopram Oxalate 40 mg 08/22/20 09:00 08/26/20 08:00 Escitalopram Oxalate 20 Mg Tablet PO 40 mg DAILY YUMIKO Administration Fluticasone Propionate 1 puff 08/19/20 08:30 08/26/20 07:40 Fluticasone Propionate 250 Mcg Blst.W.Dev INHALE 1 puff RBID YUMIKO Administration Folic Acid 1 mg 08/21/20 14:20 08/26/20 07:59 Folic Acid 1 Mg Tablet PO 1 mg DAILY YUMIKO Administration Heparin Sodium (Porcine) 5,000 unit 08/18/20 23:40 08/26/20 11:17 Heparin Sodium,Porcine 5,000 Unit/Ml Vial SUBCUT 5,000 unit Q12H YUMIKO Administration Ceftriaxone Sodium 1 gm/ 50 mls @ 100 mls/hr 08/19/20 20:00 08/25/20 22:52 Sodium Chloride IV Infused Q24H YUMIKO Infusion Insulin Human Lispro 0 unit 08/18/20 23:40 08/26/20 11:31 Insulin Lispro 100 Unit/Ml 3 Ml Vial SUBCUT Not Given QIDACHS [facility] Protocol Lidocaine 1 patch 08/20/20 14:20 08/26/20 08:01 Lidocaine 4 % Patch Adh..Patch TRANSDERMA 1 patch DAILY YUMIKO Administration Protocol Metoprolol Tartrate 12.5 mg 08/19/20 09:00 08/26/20 07:59 Metoprolol Tartrate 25 Mg Tablet PO 12.5 mg DAILY YUMIKO Administration Protocol Montelukast Sodium 10 mg 08/19/20 09:00 08/26/20 07:59 Montelukast Sodium 10 Mg Tablet PO 10 mg DAILY YUMIKO Administration Multivitamins/Vitamin C 1 tab 08/21/20 14:20 08/26/20 08:00 Multivitamin Tablet PO 1 tab DAILY YUMIKO Administration Ondansetron HCl 4 mg 08/18/20 23:40 Ondansetron Hcl 4 Mg/2 Ml Vial IVPUSH Q8H PRN Nausea and Vomiting Pharmacy Consult 1 each 08/18/20 19:57 Consult Rx Perform Med Rec MISCELLANE ONCE PRN Consult order Pravastatin Sodium 40 mg 08/19/20 21:00 08/25/20 21:16 Pravastatin Sodium 40 Mg Tablet PO 40 mg BEDTIME YUMIKO Administration Quetiapine Fumarate 25 mg 08/21/20 21:00 08/25/20 21:16 Quetiapine Fumarate 25 Mg Tablet PO 25 mg BEDTIME YUMIKO Administration Sodium Chloride 3 ml 08/19/20 00:00 08/26/20 07:59 0.9 % Sodium Chloride Flush 3 Ml Syringe IVFLUSH 3 ml QSHIFT YUMIKO Administration Thiamine HCl 100 mg 08/21/20 14:20 08/26/20 07:59 Thiamine Hcl 100 Mg Tablet PO 100 mg DAILY YUMIKO Administration Labs CBC & Chem 7: 08/26/20 05:27 08/26/20 05:27 Microbiology Microbiology Results: Microbiology 08/18/20 19:00 Blood - Venous Blood Culture - Final Escherichia coli 08/18/20 19:00 Blood - Venous Blood Culture - Final Escherichia coli 08/18/20 19:35 Urine clean catch - Clean Catch Midstream Urine Culture - Final Assessment and Plan (1) Altered mental status: Status: Acute (2) Acute UTI: Status: Acute (3) Acute metabolic encephalopathy: Status: Acute (4) Toxic encephalopathy: Status: Acute (5) Acute hyponatremia: Status: Acute Assessment and Plan: A 65-year-old female who is admitted with encephalopathy secondary to hyponatremia , UTI, SAGAR. E coli bacteremia Likely secondary to Urinary tract infection blood cultures growing E.Coli mixed growth in urine culture continue Rocephin [id number] , will switch to Ceftin on discharge to finish 14 days Acute kidney injury Secondary to ATN, possible GN creatinine peaked to 3.4, now trending down 3.16 today no obstruction on abdominal CT pending immunological studies might need kidney biopsy if no clear diagnosis strict intake and output Avoid nephrotoxic medications Nephrology following monitor kidney function closely Wernicke encephalopathy. disoriented but calm and follow orders. seems to be her baseline normal CT scan of the head Brain MRI showing findings suggestive of Wernicke encephalopathy discontinue cyclobenzaprine, gabapentin continue low Dose Seroquel at bedtime Drug screen negative for benzos, discontinue clonazepam recurrent reorientation neurology input appreciated Psychiatry input appreciated, patient incompetent Hyponatremia true hyponatremia from hypovolemia Stable around 134 IV fluids stopped Diabetes mellitus. Sliding scale, ADA diet. Hold home medications for now. Deep vein thrombosis prophylaxis heparin. home disposition, patient came from home. Her significant other a 70 years old and he does not think he can take care of her anymore. business analytics manager is looking for placement for the patient for short-term which might Change to long-term. (6) SAGAR (acute kidney injury): Status: Acute (7) Hyponatremia: Status: Acute (8) Alcohol use disorder: Status: Acute (9) Wernicke encephalopathy: Status: Acute
[2020-08-26 14:12] LABS: Glucose Urine UA NEG (NEG); Leukocyte Esterase Urine TRACE (NEG); Nitrite Urine NEG (NEG); PH 6.5 (5.0-8.0); Specific Gravity - Urine 1.015 (1.005-1.025); Urine Blood 3+ (NEG); Urine Ketones NEG (NEG); Urine Protein 2+ MG/DL (NEG-TRACE)
[2020-08-26 14:14] LABS: Appearance Urine HAZY; Color Urine YELLOW
[2020-08-26 14:34] LABS: Mucus Urine 1+ /LPF; RBC Urine TNTC /HPF (0); Renal Epithelial Cells Urine 2+ /LPF; Squamous Epithelial Cell Urine 2+ /LPF
[2020-08-26 15:57] LABS: Anti Nuclear Antibody Pattern Nuclear, Homogeneous; Anti Nuclear Antibody Screen POSITIVE (NEGATIVE); Anti Nuclear Antibody Titer 1:40 titer
[2020-08-26 16:39] LABS: Glucose, Whole Blood 101 mg/dL (60-115)
[2020-08-26] MEDS: Albuterol Sulfate 90 MCG 8 GM INHALER 2 PUFF INHALE (18:11)
[2020-08-26 21:14] LABS: Glucose, Whole Blood 146 mg/dL (60-115)
[2020-08-26] MEDS: QUEtiapine Fumarate 25 MG TABLET PO (21:40)
[2020-08-26] MEDS: cefTRIAXone sodium 1 GM in 0.9 % Sodium Chloride 50 ML IV (21:40)
[2020-08-26] MEDS: Pravastatin Sodium 40 MG TABLET PO (21:40)
[2020-08-27] VITALS (9 sets, daily range): BP systolic 118–158; BP diastolic 69–90; PULSE 68–101; RESP 18; TEMP 36.3–36.7; O2SAT 96–98
[2020-08-27] MEDS: Heparin Sodium,Porcine 5,000 UNIT/ML VIAL 5000 UNIT SUBCUT ×3 (00:05→20:35)
[2020-08-27 02:09] LABS: Creatinine Urine 47.23 mg/dL
[2020-08-27 02:22] LABS: Total Protein Urine Random 199 mg/dL (<12)
[2020-08-27 07:21] LABS: Glucose, Whole Blood 118 mg/dL (60-115)
[2020-08-27] MEDS: Fluticasone Propionate 250 MCG BLST.W.DEV 1 PUFF INHALE ×2 (07:30→19:26)
[2020-08-27] MEDS: Thiamine HCL 100 MG TABLET PO (08:10)
[2020-08-27] MEDS: Escitalopram Oxalate 20 MG TABLET 40 MG PO (08:10)
[2020-08-27] MEDS: Multivitamin TABLET 1 TAB PO (08:10)
[2020-08-27] MEDS: Metoprolol Tartrate 25 MG TABLET 12.5 MG PO (08:10)
[2020-08-27] MEDS: Montelukast Sodium 10 MG TABLET PO (08:10)
[2020-08-27] MEDS: Folic Acid 1 MG TABLET PO (08:10)
[2020-08-27] MEDS: 0.9 % Sodium Chloride Flush 3 ML SYRINGE IVFLUSH ×3 (08:11→20:35)
[2020-08-27] MEDS: Lidocaine 4 % Patch ADH..PATCH 1 PATCH TRANSDERMA (08:11)
[2020-08-27] MEDS: ondansetron HCL 4 MG/2 ML VIAL IVPUSH (09:12)
--- NOTE | 2020-08-27 10:47 | PM.PNNEP ---
Subjective Subjective Date of Service: 08/27/20 Interval history: patient seen and examined at bedside denies any complaint Physical Exam Vital Signs: Vital Signs: Last Vital Signs Temp 98.1 F 08/27/20 07:36 Pulse 101 H 08/27/20 08:10 Resp 18 08/27/20 07:36 BP 140/70 H 08/27/20 08:10 Pulse Ox 98 08/27/20 07:36 Body Mass Index 26.0 Const: General: comfortable, no acute distress and confusion Orientation/consciousness: confusion HENMT: Head: Yes normocephalic and Yes atraumatic Neck: Neck: Yes supple Resp: Auscultation: clear to auscultation bilaterally and diminished lung sounds Cardio: Heart sounds: S1 normal heart sound present and S2 normal heart sound present GI: Palpation (GI): Soft to palpation, nontender and no guarding Neuro: General: confusion Extrem: General: Yes no pedal edema and No edema Assessment & Plan Assessment and plan (1) SAGAR (acute kidney injury): Status: Acute (2) Hyponatremia: Status: Acute Assessment and Plan: SAGAR: w/u inprogress; SCr ppending this am still a ques of AGN given abnl Urine studies vs ATN from sepsis; sero pending repeat Urine studies still markedly abnl Uprot: singinf elveated BUT may be falsely overest in stting of SAGAR ( low Ucr) Ecili bacteremia AMS: w/u in progress DM REC: check am SCr and await sero ..may need kidney Bx later this week ( d/c asprin in prep of possible kidney Bx); check serum iF ( I ordered) Time Spent With Patient Time: Total time spent is greater than 50% in coordination of care (as documented) at patient's floor/unit and/or counseling patient:
[2020-08-27 11:08] LABS: Glucose, Whole Blood 130 mg/dL (60-115)
[2020-08-27 11:39] LABS: Anion Gap 16 (12-20); Blood Urea Nitrogen 35 mg/dL (9-16); Calcium 8.5 mg/dL (8.4-10.2); Carbon Dioxide 25 mmol/L (22-29); Chloride 98 mmol/L (96-108); Creatinine Clr Calc Pharmacy 19.4; Estimated Glomerular Filt Rate 17; Glucose Random 127 mg/dL (60-115); Potassium 3.7 mmol/l (3.3-5.1); Sodium 135 mmol/L (135-145)
[2020-08-27 12:52] LABS: Anti Glomerular Basement Memb <1.0 AI; Myeloperoxidase Antibody <1.0 AI; Proteinase 3 PR3 Antibodies <1.0 AI
[2020-08-27 15:11] LABS: COVID-19 Test Negative (Negative)
--- NOTE | 2020-08-27 15:35 | P.PNIM_ITS ---
Subjective Subjective Date of Service: 08/27/20 Interval History: patient seen and examined at bedside reporting nausea today Review of Systems No recent trauma seizure cold or flu-like illness headache or sudden change in personality. Otherwise review of system was reported initially. Neurologic Neurologic: Reports confusion Psychiatric Psychiatric: Reports confusion Physical Exam Vital Signs: Vital Signs: Last Vital Signs Temp 97.9 F 08/27/20 14:55 Pulse 94 08/27/20 14:55 Resp 18 08/27/20 14:55 BP 158/90 H 08/27/20 14:55 Pulse Ox 98 08/27/20 14:55 Body Mass Index 26.0 Const: General: confusion Orientation/consciousness: confusion Resp: Effort & Inspection: normal respiratory effort Auscultation: clear to auscultation bilaterally Cardio: Jugular venous distension: no JVD GI: Inspection: Yes normal to inspection Skin: General skin exam: no rashes or lesions noted Neuro: General: confusion Objective Data Current Medications Generic Name Dose Route Start Last Admin Trade Name Freq PRN Reason Stop Dose Admin Acetaminophen 650 mg 08/18/20 23:40 08/25/20 11:34 Acetaminophen 325 Mg Tablet PO 650 mg Q6H PRN Administration Pain, Mild (Pain Scale 1-3) Albuterol Sulfate 2 puff 08/19/20 08:16 08/26/20 18:11 Albuterol Sulfate 90 Mcg 8 Gm Inhaler INHALE 2 puff Q4H PRN Administration Shortness Of Breath Or Wheezin Escitalopram Oxalate 40 mg 08/22/20 09:00 08/27/20 08:10 Escitalopram Oxalate 20 Mg Tablet PO 40 mg DAILY YUMIKO Administration Fluticasone Propionate 1 puff 08/19/20 08:30 08/27/20 07:30 Fluticasone Propionate 250 Mcg Blst.W.Dev INHALE 1 puff RBID YUMIKO Administration Folic Acid 1 mg 08/21/20 14:20 08/27/20 08:10 Folic Acid 1 Mg Tablet PO 1 mg DAILY YUMIKO Administration Heparin Sodium (Porcine) 5,000 unit 08/18/20 23:40 08/27/20 11:10 Heparin Sodium,Porcine 5,000 Unit/Ml Vial SUBCUT 5,000 unit Q12H YUMIKO Administration Ceftriaxone Sodium 1 gm/ 50 mls @ 100 mls/hr 08/26/20 21:00 08/26/20 23:43 Sodium Chloride IV Infused Q24H YUMIKO Infusion Insulin Human Lispro 0 unit 08/18/20 23:40 08/27/20 11:10 Insulin Lispro 100 Unit/Ml 3 Ml Vial SUBCUT Not Given QIDACHS [facility] Protocol Lidocaine 1 patch 08/20/20 14:20 08/27/20 08:11 Lidocaine 4 % Patch Adh..Patch TRANSDERMA 1 patch DAILY YUMIKO Administration Protocol Metoprolol Tartrate 12.5 mg 08/19/20 09:00 08/27/20 08:10 Metoprolol Tartrate 25 Mg Tablet PO 12.5 mg DAILY YUMIKO Administration Protocol Montelukast Sodium 10 mg 08/19/20 09:00 08/27/20 08:10 Montelukast Sodium 10 Mg Tablet PO 10 mg DAILY [facility] Administration Multivitamins/Vitamin C 1 tab 08/21/20 14:20 08/27/20 08:10 Multivitamin Tablet PO 1 tab DAILY YUMIKO Administration Ondansetron HCl 4 mg 08/18/20 23:40 08/27/20 09:12 Ondansetron Hcl 4 Mg/2 Ml Vial IVPUSH 4 mg Q8H PRN Administration Nausea and Vomiting Pharmacy Consult 1 each 08/18/20 19:57 Consult Rx Perform Med Rec MISCELLANE ONCE PRN Consult order Pravastatin Sodium 40 mg 08/19/20 21:00 08/26/20 21:40 Pravastatin Sodium 40 Mg Tablet PO 40 mg BEDTIME YUMIKO Administration Quetiapine Fumarate 25 mg 08/21/20 21:00 08/26/20 21:40 Quetiapine Fumarate 25 Mg Tablet PO 25 mg BEDTIME YUMIKO Administration Sodium Chloride 3 ml 08/19/20 00:00 08/27/20 15:25 0.9 % Sodium Chloride Flush 3 Ml Syringe IVFLUSH 3 ml QSHIFT [facility] Administration Thiamine HCl 100 mg 08/21/20 14:20 08/27/20 08:10 Thiamine Hcl 100 Mg Tablet PO 100 mg DAILY YUMIKO Administration Labs CBC & Chem 7: 08/26/20 05:27 08/27/20 10:18 Microbiology Microbiology Results: Microbiology 08/18/20 19:00 Blood - Venous Blood Culture - Final Escherichia coli 08/18/20 19:00 Blood - Venous Blood Culture - Final Escherichia coli 08/18/20 19:35 Urine clean catch - Clean Catch Midstream Urine Culture - Final Assessment and Plan (1) Altered mental status: Status: Acute (2) Acute UTI: Status: Acute (3) Acute metabolic encephalopathy: Status: Acute (4) Toxic encephalopathy: Status: Acute (5) Acute hyponatremia: Status: Acute Assessment and Plan: A 65-year-old female who is admitted with encephalopathy secondary to hyponatremia , UTI, SAGAR. E coli bacteremia Likely secondary to Urinary tract infection blood cultures growing E.Coli mixed growth in urine culture continue Rocephin day 8 will switch to Ceftin on discharge to finish 14 days Acute kidney injury Secondary to ATN, possible GN creatinine peaked to 3.4, now trending down 2.78 today no obstruction on abdominal CT pending immunological studies might need kidney biopsy if no clear diagnosis strict intake and output Avoid nephrotoxic medications Nephrology following monitor kidney function closely Wernicke encephalopathy. disoriented but calm and follow orders. seems to be her baseline normal CT scan of the head Brain MRI showing findings suggestive of Wernicke encephalopathy discontinue cyclobenzaprine, gabapentin continue low Dose Seroquel at bedtime Drug screen negative for benzos, discontinue clonazepam recurrent reorientation neurology input appreciated Psychiatry input appreciated, patient incompetent Hyponatremia true hyponatremia from hypovolemia Stable around 134 IV fluids stopped Diabetes mellitus. Sliding scale, ADA diet. Hold home medications for now. Deep vein thrombosis prophylaxis heparin. home disposition, patient came from home. Her significant other a 70 years old and he does not think he can take care of her anymore. manager bilingual is looking for placement for the patient for short-term which might Change to long-term. , case management working on short-term rehab possible discharge tomorrow (6) SAGAR (acute kidney injury): Status: Acute (7) Hyponatremia: Status: Acute (8) Alcohol use disorder: Status: Acute (9) Wernicke encephalopathy: Status: Acute
[2020-08-27 16:17] LABS: Glucose, Whole Blood 95 mg/dL (60-115)
[2020-08-27] MEDS: Acetaminophen 325 MG TABLET 650 MG PO (17:07)
[2020-08-27] MEDS: QUEtiapine Fumarate 25 MG TABLET PO (20:34)
[2020-08-27] MEDS: Pravastatin Sodium 40 MG TABLET PO (20:34)
[2020-08-27] MEDS: cefTRIAXone sodium 1 GM in 0.9 % Sodium Chloride 50 ML IV (20:35)
[2020-08-27 21:08] LABS: Glucose, Whole Blood 100 mg/dL (60-115)
[2020-08-28 03:27] VITALS: BP 144/74; PULSE 97; RESP 16; TEMP 36.8; O2SAT 95
[2020-08-28 07:14] LABS: Glucose, Whole Blood 102 mg/dL (60-115)
[2020-08-28 07:20] LABS: Anion Gap 19 (12-20); Blood Urea Nitrogen 33 mg/dL (9-16); Calcium 8.4 mg/dL (8.4-10.2); Carbon Dioxide 24 mmol/L (22-29); Chloride 98 mmol/L (96-108); Creatinine Clr Calc Pharmacy 20.8; Estimated Glomerular Filt Rate 18; Glucose Random 103 mg/dL (60-115); Potassium 3.7 mmol/l (3.3-5.1); Sodium 137 mmol/L (135-145)
[2020-08-28 07:47] VITALS: BP 143/77; PULSE 100; RESP 18; TEMP 36.8; O2SAT 98
[2020-08-28] MEDS: Fluticasone Propionate 250 MCG BLST.W.DEV 1 PUFF INHALE (08:14)
[2020-08-28 08:18] VITALS: PULSE 81; O2SAT 98
[2020-08-28] MEDS: Escitalopram Oxalate 20 MG TABLET 40 MG PO (09:06)
[2020-08-28] MEDS: Multivitamin TABLET 1 TAB PO (09:07)
[2020-08-28] MEDS: Metoprolol Tartrate 25 MG TABLET 12.5 MG PO (09:07)
[2020-08-28] MEDS: Folic Acid 1 MG TABLET PO (09:07)
[2020-08-28] MEDS: Montelukast Sodium 10 MG TABLET PO (09:08)
[2020-08-28] MEDS: Thiamine HCL 100 MG TABLET PO (09:08)
[2020-08-28] MEDS: 0.9 % Sodium Chloride Flush 3 ML SYRINGE IVFLUSH (09:10)
[2020-08-28 11:08] LABS: Glucose, Whole Blood 96 mg/dL (60-115)
[2020-08-28 11:22] VITALS: BP 142/83; PULSE 92; RESP 18; TEMP 36.4; O2SAT 97
--- NOTE | 2020-08-28 11:25 | MHC.CM.PN ---
Patient will be discharged today to [facility] via BLS transport at 1pm. Pt, dtr and nurse are all aware.
[2020-08-28] MEDS: Lidocaine 4 % Patch ADH..PATCH 1 PATCH TRANSDERMA (12:19)
[2020-08-28] MEDS: Heparin Sodium,Porcine 5,000 UNIT/ML VIAL 5000 UNIT SUBCUT (12:21)
--- NOTE | 2020-08-28 12:37 | PM.DS ---
DS: Providers Provider Date of admission: 08/18/20 20:58 Primary care physician: Ryder Monique MD Consults: 08/18/20 23:40 Consult to Nephrology Routine Consulting Provider: Dae Isaacs Reason for consultation: SAGAR, HYPONATREMIA Has provider been notified: No 08/21/20 11:11 Consult to Psychiatry Routine Consulting Provider: Inge Maxwell Reason for consultation: Reported hallucination, behavioral changes, confusion for your eval. 08/21/20 14:21 Consult to Neurology Routine Consulting Provider: [facility] Reason for consultation: progressive encephalopathy, delerium, hallucinations for your kind eval. DS: Diagnosis Discharge Diagnosis (1) Altered mental status: Status: Acute (2) Acute UTI: Status: Acute (3) Acute metabolic encephalopathy: Status: Acute (4) Toxic encephalopathy: Status: Acute (5) Acute hyponatremia: Status: Acute (6) SAGAR (acute kidney injury): Status: Acute (7) Hyponatremia: Status: Acute (8) Alcohol use disorder: Status: Acute (9) Wernicke encephalopathy: Status: Acute DS: Medications Discharge Medications Home Medications: Home Medications Medication Instructions Recorded Confirmed Flovent HFA 1 puff INHALATION BID 08/18/20 08/18/20 albuterol sulfate [Ventolin HFA] 2 puff INHALATION Q4H PRN 08/18/20 08/18/20 aspirin 1 tab PO BEDTIME 08/18/20 08/18/20 citalopram 1 tab PO QAM 08/18/20 08/18/20 clonazepam 1 tab PO TID 08/18/20 08/18/20 furosemide 3 tab PO QAM 08/18/20 08/18/20 gabapentin 100 mg PO DAILY 08/18/20 08/18/20 ipratropium-albuterol 1 amp INHALATION QID 08/18/20 08/18/20 metoprolol tartrate 12.5 mg PO DAILY 08/18/20 08/18/20 montelukast 1 tab PO DAILY 08/18/20 08/18/20 pantoprazole 1 tab PO DAILY 08/18/20 08/18/20 pravastatin 1 tab PO BEDTIME 08/18/20 08/18/20 quetiapine 100 mg PO BID 08/18/20 08/18/20 Previous Rx's Medication Instructions Recorded cefuroxime axetil 250 mg PO .q24 14 Days #14 tab 08/28/20 folic acid 1 mg PO DAILY #30 tab 08/28/20 quetiapine 25 mg PO BEDTIME #30 tab 08/28/20 thiamine HCl (vitamin B1) 100 mg PO DAILY #30 tab 08/28/20 DS: Summary Hospital Course Hospital Course: HPI 65-year-old [place]inean-speaking woman presenting from the ER with confusion and lethargy. According to the record, apparently her called EMS for increased lethargy. He reported that he was concerned that she may be on a lot of medications including Klonopin and Seroquel and history of oxycodone use in the past. Apparently, she had seemed to be in a deep sleep, but arousable to painful stimuli. Unfortunately, the patient is confused and is unable to give any detailed information as to what happened including what her symptoms are when they started. An attempt was made to call 2 separate telephone numbers on the medical record, both were unsuccessful due to telephone number is not being in use. She did, however, positive for a UTI. Her white blood cell count was elevated at 15.0. She also had a venous blood gas, which showed pH of 7.34, pCO2 of 70, PO2 of 35, and HC03 37. Curiously enough, her sodium was noted to be 121, which is new for her. Unfortunately, the patient is confused, therefore information cannot be obtained as to why she may have such a low sodium. Her creatinine was also noted to be elevated at 2.76, which is also new for her. Urine toxicology was positive for marijuana. COVID-19 test was negative. Chest x-ray was negative for consolidation or effusion. Her vital signs were stable, though her blood pressure was a little on the lower side. Other than that, she was not hypoxic. She was given a dose of Rocephin in the ER, 2 L of IV fluids, at some point, a dose of naloxone. She will be admitted for further management and treatment of metabolic encephalopathy secondary to UTI and hyponatremia. Hospital course 65-year-old female admitted with UTI with Gram-negative bacteremia , acute kidney injury, hyponatremia and toxic metabolic encephalopathy for UTI and bacteremia patient was started on IV Rocephin, blood culture grew E coli, id recommended to continue Rocephin and p.o. Ceftin on discharge, repeat blood culture were negative, patient was switched to p.o. Ceftin on discharge for acute kidney injury creatinine was 2.76 on admission, SAGAR was likely multifactorial from dehydration, ATN , patient was started on IV fluid, creatinine trended up to 3.46 and then started trending around 2.5 on discharge, Nephrology was following, as creatinine was trending down nephrology recommended holding on on biopsy, nephrology cleared patient for discharge, patient will have repeat BMP on Wednesday with copy of results to Dr. Isaacs nephrology, patient will need follow-up with nephrology Dr. Isaacs as outpatient for toxic metabolic encephalopathy likely multifactorial from medication, infection and alcohol abuse, patient was seen by Neurology and psychiatry, encephalopathy seems more like Wernicke encephalopathy, patient received thiamine, patient's mental status improved, patient confusion improving , patient was continued on thiamine and folic acid hyponatremia was likely secondary to hypovolemia secondary to dehydration and resolved with IV fluid patient was stable evaluated by Physical therapy, patient was stable and discharged to short-term rehab patient will need follow-up with nephrology Dr. dae Isaacs as outpatient patient's expected length of stay at short-term rehab is less than 30 days Time Spent with Patient Time attestation: Total time spent providing and/or coordinating discharge services: Physical Exam Vital Signs: Vital Signs: Last Vital Signs Temp 97.5 F 08/28/20 11:22 Pulse 92 08/28/20 11:22 Resp 18 08/28/20 11:22 BP 142/83 H 08/28/20 11:22 Pulse Ox 97 08/28/20 11:22 Body Mass Index 26.0 DS: Data Data Completed and Pending Labs on day of discharge: 08/18/20 Breakfast Diabetic Diet 08/18/20 16:26 ECG 12 lead EKG Stat 08/18/20 16:27 EKG Documentation DIRECTED 08/18/20 16:30 0.9 % Sodium Chloride [Ns] 1,000 ml IVCONT 999 mls/hr 08/18/20 16:41 XR chest 1V Stat COVID-19 ID NOW ([place]) Stat 08/18/20 16:55 Osmolality, Serum Stat Partial Thromboplastin Time Stat Prothrombin Time INR Stat 08/18/20 16:56 Complete Blood Count Auto Diff Stat Comprehensive Met. Panel Stat SLIDE REVIEW Stat 08/18/20 18:15 0.9 % Sodium Chloride [Ns] 1,000 ml IVCONT 999 mls/hr 08/18/20 18:59 Naloxone HCl [Narcan] 0.4 mg IVPUSH ONCE ONE 08/18/20 19:00 Lactic Acid Stat Venous Blood Gas Stat Blood Culture X2 [BC] Stat 08/18/20 19:13 Drug Screen Urine Stat 08/18/20 19:35 Electrolytes Urine Routine Osmolality Urine Routine Urine Culture Routine 08/18/20 19:55 cefTRIAXone sodium [Rocephin] 1 gm 0.9 % Sodium Chloride [Ns] 50 ml IV ONCE 08/18/20 19:56 Add Laboratory Test Stat 08/18/20 20:09 cefTRIAXone sodium [Rocephin] 1 gm .ROUTE .[facility] ONE 08/18/20 20:35 Transfer Order Routine 08/18/20 21:11 Sodium Stat 08/18/20 23:43 Glucose, Whole Blood Routine 08/19/20 CT abdomen pelvis wo con Urgent CT head/brain wo con Urgent 08/19/20 00:15 0.9 % Sodium Chloride [Ns] 1,000 ml IVCONT 50 mls/hr 08/19/20 00:50 Sodium Routine 08/19/20 03:56 Basic Metabolic Panel DAILY@0600 Complete Blood Count Auto Diff DAILY@0600 SLIDE REVIEW Routine Thyroid Stimulating Hormone Routine 08/19/20 08:17 Glucose, Whole Blood Routine 08/19/20 08:30 Albuterol/Iprat 2.5/0.5MG 3 ML [Duoneb] 3 ml INHALE RQID 08/19/20 09:00 Furosemide [Lasix] 60 mg PO DAILY Gabapentin [Neurontin] 100 mg PO DAILY Potassium Chloride ER [Klor-con] 40 meq PO BID QUEtiapine Fumarate [SEROquel] 100 mg PO BID clonazePAM [KlonoPIN] 0.5 mg PO TID metFORMIN HCl [Glucophage] 500 mg PO DAILY 08/19/20 11:01 Potassium Chloride/H20 10 meq in 100 ml IV ONCE 08/19/20 11:07 Glucose, Whole Blood Routine 08/19/20 11:15 KCl 20 mEq in 0.9 % Sodium Chl 20 meq in 1,000 ml IVCONT 125 mls/hr 08/19/20 12:00 KCl 20 mEq in 0.9 % Sodium Chl 20 meq in 1,000 ml IVCONT 125 mls/hr 08/19/20 15:45 Basic Metabolic Panel Stat 08/19/20 17:17 Glucose, Whole Blood Routine 08/19/20 19:59 cefTRIAXone sodium [Rocephin] 1 gm .ROUTE .[facility] ONE 08/19/20 20:00 cefTRIAXone sodium [Rocephin] 1 gm 0.9 % Sodium Chloride [Ns] 50 ml IV Q24H 08/19/20 21:00 Aspirin Enteric Coated [Ecotrin] 81 mg PO BEDTIME 08/19/20 21:09 Glucose, Whole Blood Routine 08/20/20 05:57 Basic Metabolic Panel DAILY@0600 Complete Blood Count no Diff DAILY@0600 Liver Panel Routine 08/20/20 07:13 Glucose, Whole Blood Routine 08/20/20 11:06 Glucose, Whole Blood Routine 08/20/20 16:25 Glucose, Whole Blood Routine 08/20/20 20:24 Glucose, Whole Blood Routine 08/20/20 21:05 cefTRIAXone sodium [Rocephin] 1 gm .ROUTE .[facility] ONE 08/21/20 ECG 12 lead EKG Routine MR head/brain wo con Stat 08/21/20 05:53 Basic Metabolic Panel DAILY@0600 Complete Blood Count no Diff DAILY@0600 08/21/20 07:46 Glucose, Whole Blood Routine 08/21/20 08:18 EKG Documentation DIRECTED 08/21/20 11:49 Glucose, Whole Blood Routine 08/21/20 16:02 Glucose, Whole Blood Routine 08/21/20 21:00 clonazePAM [KlonoPIN] 0.5 mg PO BEDTIME 08/21/20 21:24 cefTRIAXone sodium [Rocephin] 1 gm .ROUTE .[facility] ONE 08/21/20 21:34 Glucose, Whole Blood Routine 08/22/20 01:30 QUEtiapine Fumarate [SEROquel] 50 mg PO ONCE ONE diphenhydrAMINE HCL [Benadryl] 25 mg IVPUSH ONCE ONE 08/22/20 06:00 Ammonia Routine 08/22/20 06:15 Basic Metabolic Panel DAILY@0600 Liver Panel Routine 08/22/20 07:50 Glucose, Whole Blood Routine 08/22/20 11:34 Glucose, Whole Blood Routine 08/22/20 13:53 clonazePAM [KlonoPIN] 0.5 mg PO BEDTIME PRN 08/22/20 16:10 Glucose, Whole Blood Routine 08/22/20 20:48 cefTRIAXone sodium [Rocephin] 1 gm .ROUTE .[facility] 08/22/20 21:06 Glucose, Whole Blood Routine 08/23/20 05:31 Basic Metabolic Panel DAILY@0600 08/23/20 07:44 Glucose, Whole Blood Routine 08/23/20 11:33 Glucose, Whole Blood Routine 08/23/20 14:02 ANCA Vasculitides Routine Anti Glomerular Basement Memb Routine Complement C3 Routine Complement C4 Routine 08/23/20 14:03 BETO Reflex Titer and Pattern Routine 08/23/20 16:15 Glucose, Whole Blood Routine 08/23/20 16:46 Creatinine Urine Stat Total Protein Urine Random Stat 08/23/20 20:18 Glucose, Whole Blood Routine 08/23/20 21:00 clonazePAM [KlonoPIN] 0.5 mg PO BEDTIME 08/23/20 21:22 cefTRIAXone sodium [Rocephin] 1 gm .ROUTE .[facility] 08/24/20 05:52 Basic Metabolic Panel DAILY@0600 08/24/20 07:13 Glucose, Whole Blood Routine 08/24/20 11:17 Glucose, Whole Blood Routine 08/24/20 16:09 Glucose, Whole Blood Routine 08/24/20 20:20 Glucose, Whole Blood Routine 08/24/20 20:41 cefTRIAXone sodium [Rocephin] 1 gm .ROUTE .[facility] 08/25/20 ECG 12 lead EKG Routine 08/25/20 06:40 Basic Metabolic Panel DAILY@0600 Complete Blood Count no Diff DAILY@0600 08/25/20 07:16 Glucose, Whole Blood Routine 08/25/20 11:02 Glucose, Whole Blood Routine 08/25/20 12:07 EKG Documentation DIRECTED 08/25/20 17:02 Glucose, Whole Blood Routine 08/25/20 20:29 Glucose, Whole Blood Routine 08/25/20 21:13 cefTRIAXone sodium [Rocephin] 1 gm .ROUTE .[facility] 08/26/20 05:27 Basic Metabolic Panel DAILY@0600 Complete Blood Count no Diff DAILY@0600 08/26/20 07:07 Glucose, Whole Blood Routine 08/26/20 08:21 Potassium Chloride Packet [Klor-Con Packet] 20 meq PO ONCE ONE 08/26/20 11:13 Glucose, Whole Blood Routine 08/26/20 13:41 Creatinine Urine Stat Sodium Urine Random Stat Total Protein Urine Random Stat 08/26/20 16:21 Glucose, Whole Blood Routine 08/26/20 21:09 Glucose, Whole Blood Routine 08/26/20 21:21 cefTRIAXone sodium [Rocephin] 1 gm .ROUTE .[facility] ONE 08/27/20 07:10 Glucose, Whole Blood Routine 08/27/20 10:18 Basic Metabolic Panel Routine 08/27/20 10:59 Glucose, Whole Blood Routine 08/27/20 14:35 COVID-19 ID NOW ([place]anc) Stat 08/27/20 16:12 Glucose, Whole Blood Routine 08/27/20 20:30 cefTRIAXone sodium [Rocephin] 1 gm .ROUTE .[facility] ONE 08/27/20 20:52 Glucose, Whole Blood Routine 08/28/20 05:34 Basic Metabolic Panel DAILY@0600 08/28/20 07:07 Glucose, Whole Blood Routine 08/28/20 11:00 Glucose, Whole Blood Routine Laboratory Last Values WBC 6.0 X10*3/uL (4.8-10.8) 08/26/20 05:27 RBC 3.28 X10*6/uL (4.20-5.50) L 08/26/20 05:27 Hgb 10.6 g/dl (12.0-16.0) L 08/26/20 05:27 Hct 30.3 % (37-47) L 08/26/20 05:27 MCV 92.4 fL (80-98) 08/26/20 05:27 MCH 32.3 pg (27.0-33.0) 08/26/20 05:27 MCHC 35.0 g/dl (31.0-35.0) 08/26/20 05:27 RDW 13.1 % (11.0-16.0) 08/26/20 05:27 Plt Count 454 X10*3/uL (160-400) H 08/26/20 05:27 MPV 9.2 fL (9.4-12.3) L 08/26/20 05:27 Immature Gran % (Auto) 1.4 % (0.0-0.4) H 08/19/20 03:56 Neut % (Auto) 85.0 % (45-73) H 08/19/20 03:56 Lymph % (Auto) 2.9 % (20-40) L 08/19/20 03:56 [place] % (Auto) 10.6 % (2-11) 08/19/20 03:56 Eos % (Auto) 0.0 % (0-4) 08/19/20 03:56 Baso % (Auto) 0.1 % (0-2) 08/19/20 03:56 Lymph # (Auto) 0.4 X10*3/uL (1.2-4.9) L 08/19/20 03:56 [place] # (Auto) 1.5 X10*3/uL (0.1-1.2) H 08/19/20 03:56 Eos # (Auto) 0.0 X10*3/uL (0.0-0.4) 08/19/20 03:56 Baso # (Auto) 0.0 X10*3/uL (0.0-0.2) 08/19/20 03:56 Abs Immat Gran (auto) 0.19 X10*3/uL (0.00-0.03) H 08/19/20 03:56 Absolute Neuts (auto) 11.9 X10*3/uL (2.0-8.3) H 08/19/20 03:56 Absolute Nucleated RBC 0.000 X10*3/uL (0.0-0.012) 08/26/20 05:27 Nucleated RBC % (auto) 0.0 /100WBC (0.0-0.2) 08/26/20 05:27 Smear Tech's Comments VERIFIED 08/19/20 03:56 PT 13.1 SEC (10.8-13.0) H 08/18/20 16:55 INR 1.1 (0.9-1.1) 08/18/20 16:55 APTT 33.9 SEC (24.1-38.0) 08/18/20 16:55 VBG pH 7.34 (7.32-7.43) 08/18/20 19:00 VBG pCO2 70 mmhg 08/18/20 19:00 VBG pO2 35 mmhg 08/18/20 19:00 VBG HCO3 37 mmol/L 08/18/20 19:00 VBG O2 Saturation 62.4 % 08/18/20 19:00 VBG Base Excess 9.1 mmol/L 08/18/20 19:00 Sodium 137 mmol/L (135-145) 08/28/20 05:34 Potassium 3.7 mmol/l (3.3-5.1) 08/28/20 05:34 Chloride 98 mmol/L (96-108) 08/28/20 05:34 Carbon Dioxide 24 mmol/L (22-29) 08/28/20 05:34 Anion Gap 19 (12-20) 08/28/20 05:34 BUN 33 mg/dL (9-16) H 08/28/20 05:34 Creatinine 2.59 mg/dL (0.5-1.4) H 08/28/20 05:34 Estim Creat Clear Calc 20.8 08/28/20 05:34 Estimated GFR 18 08/28/20 05:34 POC Glucose 96 mg/dL (60-115) 08/28/20 11:00 Random Glucose 103 mg/dL (60-115) 08/28/20 05:34 Osmolality 263 mosm/kg (281-305) L 08/18/20 16:55 Lactic Acid 1.5 mmol/L (0.5-2.0) 08/18/20 19:00 Calcium 8.4 mg/dL (8.4-10.2) 08/28/20 05:34 Total Bilirubin 0.4 mg/dL (0.0-1.0) 08/22/20 06:15 Direct Bilirubin 0.3 mg/dL (0.0-0.5) 08/22/20 06:15 AST 40 U/L (5-31) H D 08/22/20 06:15 ALT 31 U/L (0-31) 08/22/20 06:15 Alkaline Phosphatase 133 U/L (39-117) H D 08/22/20 06:15 Ammonia 32 umol/L (13-55) 08/22/20 06:00 Total Protein 6.1 g/dL (6.5-8.0) L 08/22/20 06:15 Albumin 3.0 g/dL (3.5-5.0) L 08/22/20 06:15 TSH 0.86 uIU/mL (0.32-4.0) 08/19/20 03:56 TSH Cancelled 08/19/20 03:56 Urine Color YELLOW 08/26/20 13:41 Urine Appearance HAZY 08/26/20 13:41 Urine pH 6.5 (5.0-8.0) 08/26/20 13:41 Ur Specific [place] 1.015 (1.005-1.025) 08/26/20 13:41 Urine Protein 2+ MG/DL (NEG-TRACE) H 08/26/20 13:41 Urine Glucose (UA) NEG MG/DL (NEG) 08/26/20 13:41 Urine Ketones NEG MG/DL (NEG) 08/26/20 13:41 Urine Blood 3+ (NEG) H 08/26/20 13:41 Urine Nitrite NEG (NEG) 08/26/20 13:41 Ur Leukocyte Esterase TRACE (NEG) H 08/26/20 13:41 Urine RBC TNTC /HPF (0) H 08/26/20 13:41 Urine WBC 15-29 /HPF (0-4) H 08/26/20 13:41 Ur Squamous Epith Cells 2+ /LPF 08/26/20 13:41 Ur Renal Epithelial Cell 2+ /LPF 08/26/20 13:41 Urine Bacteria NONE /LPF 08/26/20 13:41 Urine Mucus 1+ /LPF 08/26/20 13:41 Urine Osmolality 254 mosm/kg (373-1093) L 08/18/20 19:35 U Random Total Protein 199 mg/dL (<12) H 08/26/20 13:41 Ur Random Sodium 39.0 mmol/L 08/26/20 13:41 Ur Random Potassium 37.3 mmol/l 08/18/20 19:35 Ur Random Chloride < 20.0 mmol/L 08/18/20 19:35 Urine Creatinine 47.23 mg/dL 08/26/20 13:41 Urine Opiates Screen Not Detected (Not Detect) 08/18/20 19:13 Ur Barbiturates Screen Not Detected (Not Detect) 08/18/20 19:13 Ur Phencyclidine Scrn Not Detected (Not Detect) 08/18/20 19:13 Ur Amphetamines Screen Not Detected (Not Detect) 08/18/20 19:13 U Benzodiazepines Scrn Not Detected (Not Detect) 08/18/20 19:13 Urine Cocaine Screen Not Detected (Not Detect) 08/18/20 19:13 U Marijuana (THC) Screen POSITIVE (Not Detect) H 08/18/20 19:13 BETO Screen POSITIVE (NEGATIVE) A 08/23/20 14:03 BETO Titer 1:40 titer H 08/23/20 14:03 BETO Titer 2 TNP 08/23/20 14:03 BETO Titer 3 TNP 08/23/20 14:03 BETO Pattern Nuclear, Homogeneous A 08/23/20 14:03 BETO Pattern 2 TNP 08/23/20 14:03 BETO Pattern 3 TNP 08/23/20 14:03 Proteinase 3 (PR3) Ab <1.0 AI 08/23/20 14:02 Myeloperoxidase Ab <1.0 AI 08/23/20 14:02 Glomerular Base Memb Ab <1.0 AI 08/23/20 14:02 Complement C3 147 mg/dL (83-193) 08/23/20 14:02 Complement C4 41 mg/dL (15-57) 08/23/20 14:02 COVID-19 (ZAKIA) Negative (Negative) 08/27/20 14:35 COVID-19 Clin Com See Note 08/27/20 14:35 Discharge Plan Discharge Anticipated Discharge Date/Time: 08/28/20 11:32 Patient Disposition: Xfer SNF Referrals: [facility] [Outside] Name,MD Ryder [Primary Care Provider] - Discharge Medications: New thiamine HCl (vitamin B1) 100 mg Tablet 100 mg PO DAILY Qty: 30 RF: 0 folic acid 1 mg Tablet 1 mg PO DAILY Qty: 30 RF: 0 quetiapine 25 mg Tablet 25 mg PO BEDTIME Qty: 30 RF: 0 cefuroxime axetil 250 mg tablet 250 mg PO .q24 14 Days Qty: 14 RF: 0 insulin lispro [Humalog U-100 Insulin] 100 unit/mL Solution 1 sliding scale dose subcut QIDACHS Qty: 10 RF: 0 Continued ipratropium-albuterol 0.5 mg-3 mg(2.5 mg base)/3 mL solution for nebulization 1 amp inhalation QID RF: 0 citalopram 40 mg tablet 1 tab PO QAM RF: 0 pravastatin 40 mg tablet 1 tab PO BEDTIME RF: 0 aspirin 81 mg tablet,delayed release (DR/EC) 1 tab PO BEDTIME RF: 0 pantoprazole 40 mg tablet,delayed release (DR/EC) 1 tab PO DAILY RF: 0 montelukast 10 mg tablet 1 tab PO DAILY RF: 0 Flovent HFA 220 mcg/actuation HFA aerosol inhaler 1 puff inhalation BID RF: 0 furosemide 20 mg tablet 3 tab PO QAM RF: 0 albuterol sulfate [Ventolin HFA] 90 mcg/actuation HFA aerosol inhaler 2 puff inhalation Q4H PRN (Reason: Shortness Of Breath Or Wheezing) RF: 0 metoprolol tartrate 25 mg tablet 12.5 mg PO DAILY RF: 0 Discontinued metformin 500 mg tablet 500 mg PO DAILY RF: 0 clonazepam 0.5 mg tablet 1 tab PO TID RF: 0 quetiapine 100 mg tablet 100 mg PO BID RF: 0 gabapentin 100 mg capsule 100 mg PO DAILY RF: 0 Discharge Orders: Discharge Order (Routine); Ordered 08/28/20 Ordered By: Erich Jane Diet: advance to usual diet Activity on Discharge: As tolerated Discharge Date/Time: 08/28/20 13:11 Visit Report Forms: Patient Portal Discharge page Care Plan Goals: see discharge instruction Health Concerns: wernicke encephalopathy alcohol abuse Plan of Treatment: discharge to [facility]
--- NOTE | 2020-08-28 12:55 | MHC.INPTTRAN ---
Patient came in for AMS, but now pleasant, oriented to name, confused on place at times. no pain. diabetic - blood sugars running where we haven't had to cover her sugars w/ insulin. lidocaine patch on lower back now.
[2020-08-30 05:27] LABS: IgA 739 mg/dL (70-320); IgG 1066 mg/dL (600-1540); IgM 92 mg/dL (50-300)
--- NOTE | 2020-08-30 11:09 | PM.PNNEP ---
Subjective Subjective Date of Service: 08/28/20 Interval history: patient seen and examined Physical Exam Vital Signs: Vital Signs: Last Vital Signs Temp 97.5 F 08/28/20 11:22 Pulse 92 08/28/20 11:22 Resp 18 08/28/20 11:22 BP 142/83 H 08/28/20 11:22 Pulse Ox 97 08/28/20 11:22 Body Mass Index 26.0 Const: General: comfortable, no acute distress and confusion Orientation/consciousness: confusion HENMT: Head: Yes normocephalic and Yes atraumatic Neck: Neck: Yes supple Resp: Auscultation: clear to auscultation bilaterally and diminished lung sounds Cardio: Heart sounds: S1 normal heart sound present and S2 normal heart sound present GI: Palpation (GI): Soft to palpation, nontender and no guarding Neuro: General: confusion Extrem: General: Yes no pedal edema and No edema Assessment & Plan Assessment and plan (1) SAGAR (acute kidney injury): Status: Acute (2) Hyponatremia: Status: Acute Assessment and Plan: SAGAR: w/u inprogress; SCr gradual decr c/w resolving pahse of ATN still a ques of AGN given abnl Urine studies vs ATN from sepsis; sero pending repeat Urine studies still markedly abnl Uprot: singinf elveated BUT may be falsely overest in stting of SAGAR ( low Ucr) Ecili bacteremia AMS: w/u in progress DM REC: ok to d/c and close f/u as outpt with labs Wed or early next week ( cont to hold asprin in prep of possible kidney Bx); I will arrange f/u iwht ne in 1-2 wks Time Spent With Patient Time: Total time spent is greater than 50% in coordination of care (as documented) at patient's floor/unit and/or counseling patient:
== END 2020-08-28 13:11 | disposition skilled nursing facility (03) | DRG 689 ==
LOC: HO.ED 19:59 → HO.IMC 21:09
PROVIDERS: Internal Medicine Nephrology; Nurse Practitioner Acute Care; Student in an Organized Health Care Education/Training Program; Admitting Provider Internal Medicine; Emergency Provider Internal Medicine; PCP Internal Medicine Geriatric Medicine; Visit Provider Internal Medicine
DX: N39.0 Urinary tract infection, site not specified (principal); G92 Toxic encephalopathy; N17.0 Acute kidney failure with tubular necrosis; E87.1 Hypo-osmolality and hyponatremia; E51.2 Wernicke's encephalopathy; R78.81 Bacteremia; E11.9 Type 2 diabetes mellitus without complications; F31.9 Bipolar disorder, unspecified; E86.0 Dehydration; F10.10 Alcohol abuse, uncomplicated; G47.30 Sleep apnea, unspecified; B96.20 Unspecified Escherichia coli [E. coli] as the cause of diseases classified elsewhere; Z20.828 Contact with and (suspected) exposure to other viral communicable diseases; Z79.51 Long term (current) use of inhaled steroids; Z79.82 Long term (current) use of aspirin; Z79.899 Other long term (current) drug therapy
CPT/HCPCS: 36415; 70450; 70551; 71045; 74176; 80048; 80053; 80076; 80307; 81001; 82140; 82436; 82784; 82803; 82947; 83520; 83605; 83930; 83935; 84133; 84156; 84295; 84300; 84443; 85025; 85027; 85610; 85730; 86021; 86038; 86039; 86160; 86334; 87040; 87077; 87086; 87186; 87635; 93005; 94640; 96361; 96365; 96375; 97162; 99232; 99285; J0696; J1200; J2405

== ENCOUNTER 2020-10-08 20:15 | Emergency (ER) | payer MEDICARE, MEDICAID, SELFPAY ==
[2020-10-08] VITALS (12 sets, daily range): BP systolic 96–142; BP diastolic 57–80; PULSE 84–88; RESP 16–22; TEMP 36.3–36.6; O2SAT 97–100; BMI 23.8
--- NOTE | 2020-10-08 20:52 | CT_ITS ---
EXAMINATION: CT HEAD AND CT CERVICAL SPINE WITHOUT CONTRAST. CLINICAL INFORMATION: Fall. COMPARISON: None TECHNIQUE: 5 minutes and axial and reformatted 2 minutes in sagittal coronal images of brain were obtained. Subsequently axial 3 mm thin and reformatted 2 mm thin sagittal coronal images of cervical spine were obtained. DLP 2111 FINDINGS: Suboptimal brain exam due to patient motion. BRAIN: There is no acute intra-axial, extra-axial bleed, masses or midline shift. No acute infarction in evolution. The lateral ventricles are symmetrical in size and configuration but mildly prominent. Bone windows reveal no calvarial abnormality. There is benign hyperostosis frontalis interna. No scalp soft tissue abnormality seen. Grossly the paranasal sinuses are clear. CERVICAL SPINE: There is mild straightening of cervical lordosis. The vertebral heights and alignment is normal. There is loss of disc height virtually at every disc level with moderate ventral spondylosis C3-C4, C4-C5 and C5-C6 disc levels. No lytic process. The prevertebral soft tissues are normal. CT/CT cervical spine wo con IMPRESSION: Severely Limited exam due to patient motion. No acute intracranial process seen. No acute fracture or dislocation cervical spine. Moderate ventral spondylosis and bridging osteophytes C3-C7 vertebra. There are degenerative disc changes at all lumbar disc levels. Consider repeat CT brain and CT cervical spine at a later time following sedation.
--- NOTE | 2020-10-08 20:52 | CT_ITS ---
EXAMINATION: CT HEAD AND CT CERVICAL SPINE WITHOUT CONTRAST. CLINICAL INFORMATION: Fall. COMPARISON: None TECHNIQUE: 5 minutes and axial and reformatted 2 minutes in sagittal coronal images of brain were obtained. Subsequently axial 3 mm thin and reformatted 2 mm thin sagittal coronal images of cervical spine were obtained. DL 2111 FINDINGS: Suboptimal brain exam due to patient motion. BRAIN: There is no acute intra-axial, extra-axial bleed, masses or midline shift. No acute infarction in evolution. The lateral ventricles are symmetrical in size and configuration but mildly prominent. Bone windows reveal no calvarial abnormality. There is benign hyperostosis frontalis interna. No scalp soft tissue abnormality seen. Grossly the paranasal sinuses are clear. CERVICAL SPINE: There is mild straightening of cervical lordosis. The vertebral heights and alignment is normal. There is loss of disc height virtually at every disc level with moderate ventral spondylosis C3-C4, C4-C5 and C5-C6 disc levels. No lytic process. The prevertebral soft tissues are normal. CT/CT head/brain wo con IMPRESSION: Severely Limited exam due to patient motion. No acute intracranial process seen. No acute fracture or dislocation cervical spine. Moderate ventral spondylosis and bridging osteophytes C3-C7 vertebra. There are degenerative disc changes at all lumbar disc levels. Consider repeat CT brain and CT cervical spine at a later time following sedation.
--- NOTE | 2020-10-08 21:01 | ED.GENADULT ---
HPI - General Adult General Chief complaint: ETOH/Substance Use <ALICIA Chauhan - Last Filed: 10/09/20 02:53> Stated complaint: LOWER BACK PAIN,AMS,?ETOH <ALICIA Chauhan - Last Filed: 10/09/20 02:53> Time Seen by Provider: 10/08/20 20:40 <ALICIA Chauhan - Last Filed: 10/09/20 02:53> Source: patient <ALICIA Chauhan - Last Filed: 10/09/20 02:53> Mode of arrival: ambulatory <ALICIA Chauhan - Last Filed: 10/09/20 02:53> Limitations: no limitations <ALICIA Chauhan - Last Filed: 10/09/20 02:53> History of Present Illness HPI narrative: Patient presents to ED for back pain and drinking alcohol. Patient states she fell onto her back and denies hitting head. Patient admits to drinking 4 bottles of alcohol. <ALCIIA Chauhan - Last Filed: 10/09/20 02:53> Related Data Home medications: Home Medications Medication Instructions Recorded Confirmed Flovent HFA 1 puff INHALATION BID 08/18/20 08/18/20 albuterol sulfate [Ventolin HFA] 2 puff INHALATION Q4H PRN 08/18/20 08/18/20 aspirin 1 tab PO BEDTIME 08/18/20 08/18/20 citalopram 1 tab PO QAM 08/18/20 08/18/20 furosemide 3 tab PO QAM 08/18/20 08/18/20 ipratropium-albuterol 1 amp INHALATION QID 08/18/20 08/18/20 metoprolol tartrate 12.5 mg PO DAILY 08/18/20 08/18/20 montelukast 1 tab PO DAILY 08/18/20 08/18/20 pantoprazole 1 tab PO DAILY 08/18/20 08/18/20 pravastatin 1 tab PO BEDTIME 08/18/20 08/18/20 Previous Rx's Medication Instructions Recorded cefuroxime axetil 250 mg PO .q24 14 Days #14 tab 08/28/20 folic acid 1 mg PO DAILY #30 tab 08/28/20 insulin lispro [Humalog U-100 1 sliding scale dose SUBCUT 08/28/20 Insulin] QIDACHS #10 ml quetiapine 25 mg PO BEDTIME #30 tab 08/28/20 thiamine HCl (vitamin B1) 100 mg PO DAILY #30 tab 08/28/20 <ALICIA Chauhan Last Filed: 10/09/20 02:53> Allergies/adverse reactions: Allergies Allergy/AdvReac Type Severity Reaction Status Date / Time advair Allergy Unknown Unknown Uncoded 10/08/20 20:46 paxil Allergy Unknown Unknown Uncoded 10/08/20 20:46 From PAXIL AdvReac Intermediate NAUSEA & Uncoded 10/08/20 20:46 VOMITING <ALICIA Chauhan Last Filed: 10/09/20 02:53> Review of Systems Review of Systems: Yes all other systems are reviewed and are negative <ALICIA Chauhan Last Filed: 10/09/20 02:53> Constitutional: Constitutional: Reports as per HPI and Reports no additional constitutional complaints <ALICIA Chauhan Last Filed: 10/09/20 02:53> Eyes: Eyes: Reports as per HPI and Reports no additional eye complaints <ALICIA Chauhan Last Filed: 10/09/20 02:53> ENT: Reports system reviewed and no additional complaints, except as documented and Reports as per HPI <ALICIA Chauhan Last Filed: 10/09/20 02:53> Cardiovascular: Cardiovascular: Reports as per HPI and Reports no additional cardiovascular complaints <ALICIA Chauhan Last Filed: 10/09/20 02:53> Respiratory: Respiratory: Reports as per HPI and Reports no additional respiratory complaints <ALICIA Chauhan Last Filed: 10/09/20 02:53> Gastrointestinal: Gastrointestinal: Reports as per HPI and Reports no additional gastrointestinal complaints <ALICIA Chauhan Last Filed: 10/09/20 02:53> Genitourinary: Genitourinary: Reports no additional female genitourinary complaints and Reports as per HPI <ALICIA Chauhan Last Filed: 10/09/20 02:53> Musculoskeletal: Musculoskeletal: Reports no additional musculoskeletal complaints and Reports back pain <ALICIA Chauhan Last Filed: 10/09/20 02:53> Neurologic: Reports system reviewed and no additional complaints, except as documented and Reports as per HPI <ALICIA Chauhan - Last Filed: 10/09/20 02:53> Psychiatric: Psychiatric: Reports no additional psychiatric complaints and Reports as per HPI <ALICIA Chauhan - Last Filed: 10/09/20 02:53> [facility] Past Medical History Medical History: Medical History Bipolar 1 disorder COPD (chronic obstructive pulmonary disease) Coronary artery disease Diabetes Hypertension Osteoarthritis Sleep apnea <ALICIA Chauhan - Last Filed: 10/09/20 02:53> Surgical History: Surgical History Hx of appendectomy <ALICIA Chauhan - Last Filed: 10/09/20 02:53> Social History Social History: Social History Household Members: Spouse Housing: Apartment Alcohol intake: never Smoking Status: Unknown if ever smoked Advance Directives: No service: No Current occupational status: other <ALICIA Chauhan - Last Filed: 10/09/20 02:53> Physical Exam Vital Signs: Vital Signs: Last Vital Signs Temp 97.4 F 10/08/20 22:47 Pulse 93 10/09/20 06:00 Resp 18 10/09/20 06:00 BP 183/89 H 10/09/20 06:00 Pulse Ox 100 10/09/20 06:00 Body Mass Index 23.8 <ALICIA Chauhan - Last Filed: 10/09/20 02:53> Vital Signs: Last Vital Signs Temp 97.4 F 10/08/20 22:47 Pulse 93 10/09/20 06:00 Resp 18 10/09/20 06:00 BP 183/89 H 10/09/20 06:00 Pulse Ox 100 10/09/20 06:00 Body Mass Index 23.8 <La Fragoso MD - Last Filed: 10/09/20 07:05> Const: General: cooperative, healthy appearing, comfortable, no acute distress, well developed, alert and awake <ALICIA Chauhan - Last Filed: 10/09/20 02:53> Orientation/consciousness: patient oriented x3 <ALICIA Chauhan - Last Filed: 10/09/20 02:53> HENMT: Head: Yes normal to inspection, Yes No palpable skull fracture present, Yes normocephalic and Yes atraumatic <ALICIA Chauhan Last Filed: 10/09/20 02:53> Eyes: General: appearance normal, both eyes and all related structures <ALICIA Chauhan Last Filed: 10/09/20 02:53> Neck: Neck: Yes normal visual inspection, Yes full ROM, Yes no lymphadenopathy, Yes no meningeal signs, Yes trachea midline, Yes supple and No tender <ALICIA Chauhan Last Filed: 10/09/20 02:53> Chest: Chest palpation & inspection: normal inspection of the chest and normal palpation of entire chest wall <ALICIA Chauhan Last Filed: 10/09/20 02:53> Resp: Effort & Inspection: normal respiratory effort and able to speak in complete sentences <ALICIA Chauhan Last Filed: 10/09/20 02:53> Auscultation: clear to auscultation bilaterally <ALICIA Chauhan Last Filed: 10/09/20 02:53> Cardio: Jugular venous distension: no JVD <ALICIA Chauhan Last Filed: 10/09/20 02:53> Heart sounds: S1 normal heart sound present and S2 normal heart sound present <ALICIA Chauhan Last Filed: 10/09/20 02:53> GI: Inspection: Yes normal to inspection and No abdominal wall ecchymosis <ALICIA Chauhan Last Filed: 10/09/20 02:53> Palpation (GI): Soft to palpation, not firm, nontender, no guarding and not rigid <ALICIA Chauhan Last Filed: 10/09/20 02:53> : General: No CVA tenderness and Yes no CVA tenderness <ALICIA Chauhan Last Filed: 10/09/20 02:53> Back/Spine/Pelvis: Back: no CVA tenderness, No CVA tenderness and back tenderness (Lumbar tenderness) <ALICIA Chauhan Last Filed: 10/09/20 02:53> Skin: General skin exam: no rashes or lesions noted and elasticity normal <ALICIA Chauhan - Last Filed: 10/09/20 02:53> Neuro: General: patient oriented x3, no meningeal signs and CN's II-XI intact bilaterally <ALICIA Chauhan - Last Filed: 10/09/20 02:53> Cranial nerves: Yes CN's II-XII intact bilaterally <ALICIA Chauhan - Last Filed: 10/09/20 02:53> Extrem: General: Yes normal to inspection and Yes full ROM <ALICIA Chauhan - Last Filed: 10/09/20 02:53> Psych: Appearance: grossly normal, well kempt and not disheveled <ALICIA Chauhan - Last Filed: 10/09/20 02:53> Course Course Course Narrative: The patient denies falling ahead, patient will have head CT, C-spine, and abdominal CT scan. Abdominal CT scan will be done to evaluate back. Patient also and alcohol level. <ALICIA Chauhan Last Filed: 10/09/20 02:53> Patient's normal saline is still running, chemistry #2 is pending. Metabolized to freedom. Afterwards patient likely to be discharged home. Sign-out given to Dr. Mandujano <La Fragoso MD - Last Filed: 10/09/20 07:05> Reevaluation(s) Reevaluation #1: Patient was aggressive, throwing herself on the bed, and per herself in danger. Patient would not be compliant for CT scan to make sure there is no brain bleed or cervical spine fracture. Patient was given Ativan, Haldol, and Benadryl for safety. It took at least 3 hours before staff was able to get blood work from patient. Meaning alcohol level was definitely higher than 140 upon initial presentation in the ED. awaiting for UA results. <ALICIA Chauhan Last Filed: 10/09/20 02:53> Time: 13:09 <ALICIA Chauhan - Last Filed: 10/09/20 02:53> Reevaluation #2: UA shows UTI. Urine tox shows positive for marijuana. Patient find any sleep and sedated. Will send patient for repeat images make sure there is no bleeding in the brain, neck fracture, and no spine/back fracture. Presently no indication for IV antibiotics for UTI. I believe patient can go home. Patient was just intoxicated. As stated earlier patient was not compliant and was not able to draw labs as now she came to the ED. Most likely alcohol level is higher before were finally able to draw labs from patient. Case signed out to Dr. Fragoso to follow imaging and repeat CMP. <ALICIA Chauhan - Last Filed: 10/09/20 02:53> Time: 02:46 <ALICIA Chauhan - Last Filed: 10/09/20 02:53> Medical Decision Making Lab Data Result diagrams: : 10/08/20 23:07 10/08/20 23:07 <ALICIA Chauhan - Last Filed: 10/09/20 02:53> Labs: Lab Results 10/08/20 10/08/20 10/08/20 Range/Units 23:07 23:07 23:07 WBC 6.3 (4.8-10.8) X10*3/uL RBC 2.92 L (4.20-5.50) X10*6/uL Hgb 9.3 L (12.0-16.0) g/dl Hct 27.5 L (37-47) % MCV 94.2 (80-98) fL MCH 31.8 (27.0-33.0) pg MCHC 33.8 (31.0-35.0) g/dl RDW 13.5 (11.0-16.0) % Plt Count 274 D (160-400) X10*3/uL MPV 8.8 L (9.4-12.3) fL Immature Gran % (Auto) 0.6 H (0.0-0.4) % Neut % (Auto) 49.0 (45-73) % Lymph % (Auto) 37.7 (20-40) % Ector % (Auto) 11.1 H (2-11) % Eos % (Auto) 1.1 (0-4) % Baso % (Auto) 0.5 (0-2) % Lymph # (Auto) 2.4 (1.2-4.9) X10*3/uL Ector # (Auto) 0.7 (0.1-1.2) X10*3/uL Eos # (Auto) 0.1 (0.0-0.4) X10*3/uL Baso # (Auto) 0.0 (0.0-0.2) X10*3/uL Abs Immat Gran (auto) 0.04 H (0.00-0.03) X10*3/uL Absolute Neuts (auto) 3.1 (2.0-8.3) X10*3/uL Absolute Nucleated RBC 0.000 (0.0-0.012) X10*3/uL Nucleated RBC % (auto) 0.0 (0.0-0.2) /100WBC PT (10.8-13.0) SEC INR (0.9-1.1) APTT (24.1-38.0) SEC Sodium 127 L (135-145) mmol/L Potassium 5.0 D (3.3-5.1) mmol/l Chloride 97 (96-108) mmol/L Carbon Dioxide 21 L (22-29) mmol/L Anion Gap 14 (12-20) BUN 19 H (9-16) mg/dL Creatinine 1.32 (0.5-1.4) mg/dL Estim Creat Clear Calc 40.2 Estimated GFR 40 Random Glucose 109 (60-115) mg/dL Calcium 7.8 L D (8.4-10.2) mg/dL Total Bilirubin 0.2 (0.0-1.0) mg/dL AST 18 D (5-31) U/L ALT 11 (0-31) U/L Alkaline Phosphatase 108 (39-117) U/L Total Protein 6.3 L (6.5-8.0) g/dL Albumin 3.4 L (3.5-5.0) g/dL Urine Color Urine Appearance Urine pH (5.0-8.0) Ur Specific [place] (1.005-1.025) Urine Protein (NEG-TRACE) MG/DL Urine Glucose (UA) (NEG) MG/DL Urine Ketones (NEG) MG/DL Urine Blood (NEG) Urine Nitrite (NEG) Ur Leukocyte Esterase (NEG) Urine RBC (0) /HPF Urine WBC (0-4) /HPF Ur Squamous Epith Cells /LPF Urine Bacteria /LPF Urine Opiates Screen (Not Detect) Ur Barbiturates Screen (Not Detect) Ur Phencyclidine Scrn (Not Detect) Ur Amphetamines Screen (Not Detect) U Benzodiazepines Scrn (Not Detect) Urine Cocaine Screen (Not Detect) U Marijuana (THC) Screen (Not Detect) Ethyl Alcohol 140 mg/dL 10/08/20 10/09/20 10/09/20 Range/Units 23:07 01:33 01:33 WBC (4.8-10.8) X10*3/uL RBC (4.20-5.50) X10*6/uL Hgb (12.0-16.0) g/dl Hct (37-47) % MCV (80-98) fL MCH (27.0-33.0) pg MCHC (31.0-35.0) g/dl RDW (11.0-16.0) % Plt Count (160-400) X10*3/uL MPV (9.4-12.3) fL Immature Gran % (Auto) (0.0-0.4) % Neut % (Auto) (45-73) % Lymph % (Auto) (20-40) % Ector % (Auto) (2-11) % Eos % (Auto) (0-4) % Baso % (Auto) (0-2) % Lymph # (Auto) (1.2-4.9) X10*3/uL Ector # (Auto) (0.1-1.2) X10*3/uL Eos # (Auto) (0.0-0.4) X10*3/uL Baso # (Auto) (0.0-0.2) X10*3/uL Abs Immat Gran (auto) (0.00-0.03) X10*3/uL Absolute Neuts (auto) (2.0-8.3) X10*3/uL Absolute Nucleated RBC (0.0-0.012) X10*3/uL Nucleated RBC % (auto) (0.0-0.2) /100WBC PT 10.9 (10.8-13.0) SEC INR 0.9 (0.9-1.1) APTT 34.8 (24.1-38.0) SEC Sodium (135-145) mmol/L Potassium (3.3-5.1) mmol/l Chloride (96-108) mmol/L Carbon Dioxide (22-29) mmol/L Anion Gap (12-20) BUN (9-16) mg/dL Creatinine (0.5-1.4) mg/dL Estim Creat Clear Calc Estimated GFR Random Glucose (60-115) mg/dL Calcium (8.4-10.2) mg/dL Total Bilirubin (0.0-1.0) mg/dL AST (5-31) U/L ALT (0-31) U/L Alkaline Phosphatase (39-117) U/L Total Protein (6.5-8.0) g/dL Albumin (3.5-5.0) g/dL Urine Color STRAW Urine Appearance CLEAR Urine pH 5.5 (5.0-8.0) Ur Specific [place] <= 1.005 (1.005-1.025) Urine Protein NEG (NEG-TRACE) MG/DL Urine Glucose (UA) NEG (NEG) MG/DL Urine Ketones NEG (NEG) MG/DL Urine Blood 3+ H (NEG) Urine Nitrite POS H (NEG) Ur Leukocyte Esterase NEG (NEG) Urine RBC 0-2 (0) /HPF Urine WBC 1-4 (0-4) /HPF Ur Squamous Epith Cells TRACE /LPF Urine Bacteria 1+ /LPF Urine Opiates Screen Not Detected (Not Detect) Ur Barbiturates Screen Not Detected (Not Detect) Ur Phencyclidine Scrn Not Detected (Not Detect) Ur Amphetamines Screen Not Detected (Not Detect) U Benzodiazepines Scrn Not Detected (Not Detect) Urine Cocaine Screen Not Detected (Not Detect) U Marijuana (THC) Screen POSITIVE H (Not Detect) Ethyl Alcohol mg/dL <ALICIA Chauhan - Last Filed: 10/09/20 02:53> Lab Results 10/08/20 10/08/20 10/08/20 Range/Units 23:07 23:07 23:07 WBC 6.3 (4.8-10.8) X10*3/uL RBC 2.92 L (4.20-5.50) X10*6/uL Hgb 9.3 L (12.0-16.0) g/dl Hct 27.5 L (37-47) % MCV 94.2 (80-98) fL MCH 31.8 (27.0-33.0) pg MCHC 33.8 (31.0-35.0) g/dl RDW 13.5 (11.0-16.0) % Plt Count 274 D (160-400) X10*3/uL MPV 8.8 L (9.4-12.3) fL Immature Gran % (Auto) 0.6 H (0.0-0.4) % Neut % (Auto) 49.0 (45-73) % Lymph % (Auto) 37.7 (20-40) % Ector % (Auto) 11.1 H (2-11) % Eos % (Auto) 1.1 (0-4) % Baso % (Auto) 0.5 (0-2) % Lymph # (Auto) 2.4 (1.2-4.9) X10*3/uL E[place] # (Auto) 0.7 (0.1-1.2) X10*3/uL Eos # (Auto) 0.1 (0.0-0.4) X10*3/uL Baso # (Auto) 0.0 (0.0-0.2) X10*3/uL Abs Immat Gran (auto) 0.04 H (0.00-0.03) X10*3/uL Absolute Neuts (auto) 3.1 (2.0-8.3) X10*3/uL Absolute Nucleated RBC 0.000 (0.0-0.012) X10*3/uL Nucleated RBC % (auto) 0.0 (0.0-0.2) /100WBC PT (10.8-13.0) SEC INR (0.9-1.1) APTT (24.1-38.0) SEC Sodium 127 L (135-145) mmol/L Potassium 5.0 D (3.3-5.1) mmol/l Chloride 97 (96-108) mmol/L Carbon Dioxide 21 L (22-29) mmol/L Anion Gap 14 (12-20) BUN 19 H (9-16) mg/dL Creatinine 1.32 (0.5-1.4) mg/dL Estim Creat Clear Calc 40.2 Estimated GFR 40 Random Glucose 109 (60-115) mg/dL Calcium 7.8 L D (8.4-10.2) mg/dL Total Bilirubin 0.2 (0.0-1.0) mg/dL AST 18 D (5-31) U/L ALT 11 (0-31) U/L Alkaline Phosphatase 108 (39-117) U/L Total Protein 6.3 L (6.5-8.0) g/dL Albumin 3.4 L (3.5-5.0) g/dL Urine Color Urine Appearance Urine pH (5.0-8.0) Ur Specific [place] (1.005-1.025) Urine Protein (NEG-TRACE) MG/DL Urine Glucose (UA) (NEG) MG/DL Urine Ketones (NEG) MG/DL Urine Blood (NEG) Urine Nitrite (NEG) Ur Leukocyte Esterase (NEG) Urine RBC (0) /HPF Urine WBC (0-4) /HPF Ur Squamous Epith Cells /LPF Urine Bacteria /LPF Urine Opiates Screen (Not Detect) Ur Barbiturates Screen (Not Detect) Ur Phencyclidine Scrn (Not Detect) Ur Amphetamines Screen (Not Detect) U Benzodiazepines Scrn (Not Detect) Urine Cocaine Screen (Not Detect) U Marijuana (THC) Screen (Not Detect) Ethyl Alcohol 140 mg/dL 10/08/20 10/09/20 10/09/20 Range/Units 23:07 01:33 01:33 WBC (4.8-10.8) X10*3/uL RBC (4.20-5.50) X10*6/uL Hgb (12.0-16.0) g/dl Hct (37-47) % MCV (80-98) fL MCH (27.0-33.0) pg MCHC (31.0-35.0) g/dl RDW (11.0-16.0) % Plt Count (160-400) X10*3/uL MPV (9.4-12.3) fL Immature Gran % (Auto) (0.0-0.4) % Neut % (Auto) (45-73) % Lymph % (Auto) (20-40) % E[place] % (Auto) (2-11) % Eos % (Auto) (0-4) % Baso % (Auto) (0-2) % Lymph # (Auto) (1.2-4.9) X10*3/uL [place] # (Auto) (0.1-1.2) X10*3/uL Eos # (Auto) (0.0-0.4) X10*3/uL Baso # (Auto) (0.0-0.2) X10*3/uL Abs Immat Gran (auto) (0.00-0.03) X10*3/uL Absolute Neuts (auto) (2.0-8.3) X10*3/uL Absolute Nucleated RBC (0.0-0.012) X10*3/uL Nucleated RBC % (auto) (0.0-0.2) /100WBC PT 10.9 (10.8-13.0) SEC INR 0.9 (0.9-1.1) APTT 34.8 (24.1-38.0) SEC Sodium (135-145) mmol/L Potassium (3.3-5.1) mmol/l Chloride (96-108) mmol/L Carbon Dioxide (22-29) mmol/L Anion Gap (12-20) BUN (9-16) mg/dL Creatinine (0.5-1.4) mg/dL Estim Creat Clear Calc Estimated GFR Random Glucose (60-115) mg/dL Calcium (8.4-10.2) mg/dL Total Bilirubin (0.0-1.0) mg/dL AST (5-31) U/L ALT (0-31) U/L Alkaline Phosphatase (39-117) U/L Total Protein (6.5-8.0) g/dL Albumin (3.5-5.0) g/dL Urine Color STRAW Urine Appearance CLEAR Urine pH 5.5 (5.0-8.0) Ur Specific [place] <= 1.005 (1.005-1.025) Urine Protein NEG (NEG-TRACE) MG/DL Urine Glucose (UA) NEG (NEG) MG/DL Urine Ketones NEG (NEG) MG/DL Urine Blood 3+ H (NEG) Urine Nitrite POS H (NEG) Ur Leukocyte Esterase NEG (NEG) Urine RBC 0-2 (0) /HPF Urine WBC 1-4 (0-4) /HPF Ur Squamous Epith Cells TRACE /LPF Urine Bacteria 1+ /LPF Urine Opiates Screen Not Detected (Not Detect) Ur Barbiturates Screen Not Detected (Not Detect) Ur Phencyclidine Scrn Not Detected (Not Detect) Ur Amphetamines Screen Not Detected (Not Detect) U Benzodiazepines Scrn Not Detected (Not Detect) Urine Cocaine Screen Not Detected (Not Detect) U Marijuana (THC) Screen POSITIVE H (Not Detect) Ethyl Alcohol mg/dL <La Fragoso MD - Last Filed: 10/09/20 07:05> Discharge Plan Discharge Clinical Impression: Alcohol use disorder, Acute hyponatremia <ALICIA Chauhan - Last Filed: 10/09/20 02:53> Patient Disposition: Home, Self-Care <ALICIA Chauhan - Last Filed: 10/09/20 02:53> Instructions: Abuse of Alcohol (ED), Hyponatremia (ED) <ALICIA Chauhan - Last Filed: 10/09/20 02:53> Additional Instructions: Please follow-up with your primary care physician tomorrow. If you have any worsening or new symptoms, please return to the emergency room or call 911 <ALICIA Chauhan - Last Filed: 10/09/20 02:53> Prescriptions: No Action ipratropium-albuterol 0.5 mg-3 mg(2.5 mg base)/3 mL solution for nebulization 1 amp inhalation QID RF: 0 citalopram 40 mg tablet 1 tab PO QAM RF: 0 pravastatin 40 mg tablet 1 tab PO BEDTIME RF: 0 aspirin 81 mg tablet,delayed release (DR/EC) 1 tab PO BEDTIME RF: 0 pantoprazole 40 mg tablet,delayed release (DR/EC) 1 tab PO DAILY RF: 0 montelukast 10 mg tablet 1 tab PO DAILY RF: 0 Flovent HFA 220 mcg/actuation HFA aerosol inhaler 1 puff inhalation BID RF: 0 furosemide 20 mg tablet 3 tab PO QAM RF: 0 albuterol sulfate [Ventolin HFA] 90 mcg/actuation HFA aerosol inhaler 2 puff inhalation Q4H PRN (Reason: Shortness Of Breath Or Wheezing) RF: 0 metoprolol tartrate 25 mg tablet 12.5 mg PO DAILY RF: 0 thiamine HCl (vitamin B1) 100 mg Tablet 100 mg PO DAILY Qty: 30 RF: 0 folic acid 1 mg Tablet 1 mg PO DAILY Qty: 30 RF: 0 quetiapine 25 mg Tablet 25 mg PO BEDTIME Qty: 30 RF: 0 cefuroxime axetil 250 mg tablet 250 mg PO .q24 14 Days Qty: 14 RF: 0 insulin lispro [Humalog U-100 Insulin] 100 unit/mL Solution 1 sliding scale dose subcut QIDACHS Qty: 10 RF: 0 <ALICIA Chauhan - Last Filed: 10/09/20 02:53>
--- NOTE | 2020-10-08 21:19 | PC.NURSE ---
pt repeated to this rn that she didn't fall but disclosed to provider that she did. patient refused to remain on back for cspine precautions. patient verbalized understanding of instructions by use of nigerien speaking staff. patient then turned on side.
[2020-10-08] MEDS: LORazepam 2 MG/ML VIAL IM (21:50)
[2020-10-08] MEDS: diphenhydrAMINE HCL 50 MG/ML VIAL IM (21:51)
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
--- NOTE | 2020-10-08 22:09 | PC.NURSE ---
per padmini patient is able to be on 15 minute checks.
[2020-10-08] MEDS: Haloperidol Lactate 5 MG/ML VIAL IM (22:28)
[2020-10-08 23:15] LABS: MANUAL DIFF FLAG NO
[2020-10-08 23:18] LABS: Basophils Percent Auto 0.5 % (0-2); Eosinophils Absolute Auto 0.1 X10*3/uL (0.0-0.4); Eosinophils Percent Auto 1.1 % (0-4); Hematocrit 27.5 % (37-47); Hemoglobin 9.3 g/dl (12.0-16.0); Imm Gran Abs Auto 0.04 X10*3/uL (0.00-0.03); Imm Gran Pct Auto 0.6 % (0.0-0.4); Lymphocytes Absolute Auto 2.4 X10*3/uL (1.2-4.9); Lymphocytes Percent Auto 37.7 % (20-40); Mean Corpuscular HGB Conc 33.8 g/dl (31.0-35.0); Mean Corpuscular Hemoglobin 31.8 pg (27.0-33.0); Mean Corpuscular Volume 94.2 fL (80-98); Mean Platelet Volume 8.8 fL (9.4-12.3); Monocytes Absolute Auto 0.7 X10*3/uL (0.1-1.2); Monocytes Percent Auto 11.1 % (2-11); Neutrophils Absolute Auto 3.1 X10*3/uL (2.0-8.3); Platelet Count 274 X10*3/uL (160-400); Red Blood Count 2.92 X10*6/uL (4.20-5.50); Red Cell Distribution Width 13.5 % (11.0-16.0); White Blood Count 6.3 X10*3/uL (4.8-10.8)
[2020-10-08 23:26] LABS: INTERNATIONAL NORM RATIO 0.9 (0.9-1.1); Prothrombin Time 10.9 SEC (10.8-13.0)
[2020-10-08 23:29] LABS: Partial Thromboplastin Time 34.8 SEC (24.1-38.0)
[2020-10-08 23:37] LABS: Ethanol 140 mg/dL
[2020-10-08 23:40] LABS: Alanine Aminotransferase 11 U/L (0-31); Albumin Level 3.4 g/dL (3.5-5.0); Alkaline Phosphatase 108 U/L (39-117); Anion Gap 14 (12-20); Aspartate Amino Transferase 18 U/L (5-31); Bilirubin Total 0.2 mg/dL (0.0-1.0); Blood Urea Nitrogen 19 mg/dL (9-16); Calcium 7.8 mg/dL (8.4-10.2); Carbon Dioxide 21 mmol/L (22-29); Chloride 97 mmol/L (96-108); Creatinine Clr Calc Pharmacy 40.2; Estimated Glomerular Filt Rate 40; Glucose Random 109 mg/dL (60-115); Sodium 127 mmol/L (135-145); Total Protein 6.3 g/dL (6.5-8.0)
[2020-10-09] VITALS: PULSE 90; RESP 15; O2SAT 100
--- NOTE | 2020-10-09 01:02 | CT_ITS ---
EXAMINATION: HEAD CT WITHOUT CONTRAST CERVICAL SPINE CT WITHOUT CONTRAST CLINICAL INFORMATION: Fall. COMPARISON: 10/08/2020 TECHNIQUE: Contiguous axial imaging of the head was performed without the administration of IV contrast. Axial multidetector volumetric images were also performed through the cervical spine without intravenous contrast. Multiplanar reconstructed images in coronal and sagittal orientations were submitted. This CT examination was performed using dose optimization techniques as appropriate, variously including the following: *Automated exposure control *Adjustment of mA and/or kV according to patient size (this includes techniques or standardized protocols for targeted exams where dose is matched to indication/reason for exam; i.e. extremities or head) *Use of iterative reconstruction technique DOSE: 1660 mGy-cm FINDINGS: HEAD: There is no evidence of acute intracranial hemorrhage or territorial infarction. No abnormal mass-effect or midline shift. No extra-axial fluid collections. Fitch to white matter differentiation is well preserved. The ventricles are normal in size and configuration. There is no abnormal attenuation within the brain parenchyma. Hyperostosis frontalis interna. No acute fractures are identified. The sinuses and mastoid air cells are clear. CERVICAL SPINE: Vertebral body heights are normal. No fractures of the vertebral bodies or posterior elements. There is anterolisthesis of C3 on C4 by 2 mm which is unchanged from prior and likely related to facet arthropathy at this level. Similar slight anterolisthesis is evident at C7 on T1 also likely related to facet arthropathy. Degenerative changes are present at the craniocervical and atlantoaxial articulations, though normal alignment is maintained. There is degenerative ankylosis of the vertebral bodies at C5 and C6 s large anterior osteophytes. Additional prominent osteophytes are present at C3 and C4. There is marked loss of vertebral disc height, endplate osteophytes, uncovertebral osteophytes, endplate irregularity at the other levels, most notably C4-C5. There is marked facet neuropathy C3-C4 bilaterally with fusion of the facet joints at C2-C3. Severe facet arthropathy is also evident at C7-T1, more pronounced on the right. Central canal appears patent. There is neural foraminal encroachment at multiple levels, most notably at C3-C4 on the left, C4-C5 bilaterally, and C5-C6 on the left. No significant paravertebral soft tissue swelling. Cervical soft tissues are unremarkable. Imaged portions of the lung apices are clear. CT/CT cervical spine wo con IMPRESSION: 1. No acute intracranial pathology. 2. No acute fracture or malalignment in the cervical spine. 3. Multilevel degenerative spondylosis in the cervical spine.
[2020-10-09] MEDS: Morphine Sulfate 4 MG/ML CARTRIDGE IM (01:31)
[2020-10-09 02:00] VITALS: PULSE 90; RESP 18
[2020-10-09 02:00] LABS: Glucose Urine UA NEG (NEG); Leukocyte Esterase Urine NEG (NEG); Nitrite Urine POS (NEG); PH 5.5 (5.0-8.0); Specific Gravity - Urine <= 1.005 (1.005-1.025); Urine Blood 3+ (NEG); Urine Ketones NEG (NEG); Urine Protein NEG (NEG-TRACE)
[2020-10-09] MEDS: 0.9 % Sodium Chloride 1,000 ML 999 ML IV ×2 (02:00→02:05)
[2020-10-09 02:04] LABS: Appearance Urine CLEAR; Color Urine STRAW
[2020-10-09 02:13] LABS: Amphetamine Screen Urine Not Detected (Not Detect); Barbiturates, Urine Not Detected (Not Detect); Benzodiazepines Screen Urine Not Detected (Not Detect); Cannabinoid Screen Urine POSITIVE (Not Detect); Cocaine Screen Urine Not Detected (Not Detect); Opiate Screen Urine Not Detected (Not Detect); Phencyclidine Screen Urine Not Detected (Not Detect)
--- NOTE | 2020-10-09 02:34 | CT_ITS ---
EXAMINATION: CT CHEST WITHOUT CONTRAST CT ABDOMEN AND PELVIS WITHOUT CONTRAST CLINICAL INFORMATION: Reason for Exam lower back pain. spine fracture? . Question rib fractures. COMPARISON: 08/19/2020 and 06/16/2020. TECHNIQUE: Multidetector volumetric imaging was performed from the thoracic inlet through the pubic symphysis. Sagittal and coronal images were reformatted. On the technologist, patient cooperation was limited as the patient was asleep. Respiratory motion is present throughout. Abdominal images were repeated. This CT examination was performed using dose optimization techniques as appropriate, variously including the following: *Automated exposure control *Adjustment of mA and/or kV according to patient size (this includes techniques or standardized protocols for targeted exams where dose is matched to indication/reason for exam; i.e. extremities or head) *Use of iterative reconstruction technique DOSE: 2312 mGy-cm FINDINGS: -CHEST- LUNG: The lungs are clear without focal opacity or nodule. Sensitivity for nodules are slightly limited by respiratory motion, most notably in the upper lobes. Central airways are clear. MEDIASTINUM: Heart is at the upper limits of normal in size. Calcific atherosclerosis is present in the thoracic aorta. Thoracic aorta is within normal limits in caliber. Thyroid gland is unremarkable. No mediastinal adenopathy. PERICARDIUM/PLEURA: No significant effusion. No pleural mass or thickening. CHEST WALL/AXILLA: Unremarkable. -ABDOMEN/PELVIS- LIVER, GALLBLADDER, BILIARY TREE: The liver is normal in size, shape, and attenuation. No focal hepatic lesion or biliary ductal dilatation is present. The gallbladder is mildly hydropic with no evidence of radiopaque gallstones, gallbladder wall thickening, or obvious pericholecystic inflammatory changes. PANCREAS: Normal; no mass or surrounding fluid. SPLEEN: Normal size. No focal lesion. ADRENAL GLANDS: Normal; no mass. KIDNEYS AND URETERS: The kidneys are normal in size, shape, and attenuation. No hydronephrosis, hydroureter, or calculi seen. No perinephric stranding. BLADDER: Full. No wall thickening or focal abnormalities. GASTROINTESTINAL TRACT: Moderate colonic diverticulosis. No evidence of acute diverticulitis. Appendix is normal. Stomach, small bowel, and colon are normal in caliber. No appreciable bowel wall thickening. No intraperitoneal free fluid or free air. ABDOMINAL WALL: No significant hernia is appreciated. VASCULATURE: Atherosclerotic calcifications are present in the abdominal aorta and iliac arteries. No aneurysmal dilatation. LYMPH NODES: No lymphadenopathy. . PELVIC VISCERA: The uterus and adnexa are unremarkable. OSSEUS STRUCTURES: No acute fractures are identified in the thoracic and lumbar spine. There is mild multilevel degenerative spondylosis in the thoracic spine, most pronounced in the lower thoracic spine. Marked spondylosis is evident in the imaged portion of the lower cervical spine, partially included on this study. No acute rib fractures are identified. Sensitivity for fracture is slightly limited by the respiratory motion. Sternum is intact. There is severe osteoarthritis in the right glenohumeral joint and more moderate to severe osteoarthritis in the left glenohumeral joint. There is atrophy of the rotator cuff musculature. Effusions are present at both glenohumeral joints with associated osseous loose bodies. Moderate to severe degenerative spondylosis in the lumbar spine is most notable from L3-L4 through L5-S1 lumbosacral facet arthropathy and degenerative disc disease. There is mild left convex lumbar scoliotic curvature. No acute fractures are identified. Vertebral bodies and posterior elements are intact. There is severe osteoarthritis in both hip joints with with marked axial joint space narrowing, subchondral sclerosis, subchondral cystic change, articular surface remodeling, and marginal osteophytes. CT/CT abdomen pelvis wo con IMPRESSION: 1. No acute abnormalities identified in the chest, abdomen, and pelvis. No acute fractures are identified. 2. Moderate colonic diverticulosis without evidence of acute diverticulosis. 3. Multilevel degenerative spondylosis of the thoracolumbar spine, most pronounced in the lower lumbar spine. Marked osteoarthritis at the glenohumeral and hip joints.
[2020-10-09 02:49] LABS: Bacteria Urine 1+ /LPF; RBC Urine 0-2 /HPF (0); Squamous Epithelial Cell Urine TRACE /LPF
--- NOTE | 2020-10-09 02:58 | PC.NURSE ---
post ct give 2 L ns. then repeat chem.
[2020-10-09 04:00] VITALS: PULSE 90; RESP 16; O2SAT 100
[2020-10-09 06:00] VITALS: BP 183/89; PULSE 93; RESP 18; O2SAT 100
[2020-10-09] MEDS: cefTRIAXone sodium 1 GM in 0.9 % Sodium Chloride 50 ML IV (06:15)
[2020-10-09 07:13] LABS: Alanine Aminotransferase 14 U/L (0-31); Albumin Level 3.3 g/dL (3.5-5.0); Alkaline Phosphatase 98 U/L (39-117); Anion Gap 16 (12-20); Aspartate Amino Transferase 24 U/L (5-31); Bilirubin Total 0.2 mg/dL (0.0-1.0); Blood Urea Nitrogen 20 mg/dL (9-16); Calcium 7.8 mg/dL (8.4-10.2); Carbon Dioxide 18 mmol/L (22-29); Chloride 104 mmol/L (96-108); Creatinine Clr Calc Pharmacy 41.1; Estimated Glomerular Filt Rate 41; Glucose Random 88 mg/dL (60-115); Potassium 5.1 mmol/l (3.3-5.1); Sodium 133 mmol/L (135-145); Total Protein 6.5 g/dL (6.5-8.0)
--- NOTE | 2020-10-09 08:32 | PC.NURSE ---
pt repositioned. linen and pt clothing changed.
[2020-10-09 09:27] VITALS: BP 161/72; PULSE 93; RESP 16; O2SAT 97
--- NOTE | 2020-10-09 10:35 | MHC.RECOVSUP ---
Recovery Support note: Patient is a 65 year old [place] speaking female who presented to [facility] due to intoxication. This content writer met with patient with an [facility] senior applications engineer to discuss patient's alcohol use. Patient reports she does not drink everyday and that her drinking is not a problem. This content writer explained to patient that if she wants to get connected with support groups in [place] or [place] speaking recovery coaches, she can reach out to [facility]. Provided patient with the information for [facility].
== END 2020-10-09 11:08 | disposition home or self-care (01) ==
PROVIDERS: Physician Assistant; Emergency Provider Emergency Medicine
DX: F10.129 Alcohol abuse with intoxication, unspecified (principal); Y90.6 Blood alcohol level of 120-199 mg/100 ml; E87.1 Hypo-osmolality and hyponatremia; I25.10 Atherosclerotic heart disease of native coronary artery without angina pectoris; Z79.899 Other long term (current) drug therapy; Z79.4 Long term (current) use of insulin
CPT/HCPCS: 36415; 70450; 71250; 72125; 74176; 80053; 80307; 80320; 81001; 85025; 85610; 85730; 87086; 87186; 96365; 96372; 99285; J0696; J1200; J2060; J2270

== ENCOUNTER 2020-10-10 07:06 | Inpatient (IN) | payer MEDICARE, MEDICAID, SELFPAY ==
[2020-10-10 07:13] VITALS: BP 160/84; BP 164/80; PULSE 88; RESP 18; TEMP 36.6; O2SAT 95; O2SAT 97; BMI 39.4
--- NOTE | 2020-10-10 07:27 | ECG_ITS ---
Test Reason : GENERAL MEDICAL Blood Pressure : / mmHG Vent. Rate : 079 BPM Atrial Rate : 079 BPM P-R Int : 146 ms QRS Dur : 084 ms QT Int : 394 ms P-R-T Axes : 044 -18 014 degrees QTc Int : 451 ms Normal sinus rhythm with sinus arrhythmia Nonspecific T wave abnormality Abnormal ECG When compared with ECG of 25-AUG-2020 12:38, Nonspecific T wave abnormality, improved in Lateral leads QT has shortened Referred By: Uri Chaudhari Electronically Signed By:CAMPOS KELLER MD
--- NOTE | 2020-10-10 07:27 | XR_ITS ---
EXAMINATION: LEFT HIP AND CHEST EXAM. CLINICAL INFORMATION: Fall. Left hip pain. COMPARISON: None TECHNIQUE: AP pelvis and left hip 2 views. Chest one view. FINDINGS: AP PELVIS: There is severe loss of bilateral hip joint space with subchondral cystic changes and degenerative spurring. 2 views of the left hip reveal no visible fracture, dislocation or subluxation. CHEST: The lungs are well-expanded and clear of acute process. Heart size enlarged. Pulmonary vascularity is normal. No gross bony abnormality seen. XR/XR hip LT w PEL1V IMPRESSION: Mild cardiomegaly. Lungs are clear. There is severe degenerative arthritic changes bilateral hip joints with periapical spurring and subchondral cyst. No visible acute fracture or dislocation in AP pelvis or the left hip. If patient has significant pain and left hip and a fracture suspected a CT can be performed.
--- NOTE | 2020-10-10 07:27 | CT_ITS ---
EXAMINATION: CT HEAD WITHOUT CONTRAST CLINICAL INFORMATION: Fall 2 mild in mental status. COMPARISON: CT brain 10/09/2020 TECHNIQUE: Contiguous axial imaging was performed from the skull base to vertex without intravenous administration of contrast. This CT examination was performed using dose optimization techniques as appropriate, variously including the following: *Automated exposure control *Adjustment of mA and/or kV according to patient size (this includes techniques or standardized protocols for targeted exams where dose is matched to indication/reason for exam; i.e. extremities or head) *Use of iterative reconstruction technique DLP: 777 mGy-cm FINDINGS: There is no evidence of acute intracranial hemorrhage or territorial infarction. No abnormal mass effect or midline shift is seen. Fitch to white matter differentiation is well preserved. No extra-axial fluid collections are identified. There is benign hyperostosis frontalis interna. The ventricles are normal in size. There is no abnormal attenuation within the brain parenchyma. The osseous structures and soft tissues are normal. There is a small polyp or retention cyst along the medial wall of right maxillary sinus.. CT/CT head/brain wo con IMPRESSION: No acute intracranial process seen. No major change compared to previous study 10/09/2020
--- NOTE | 2020-10-10 07:27 | XR_ITS ---
EXAMINATION: LEFT HIP AND CHEST EXAM. CLINICAL INFORMATION: Fall. Left hip pain. COMPARISON: None TECHNIQUE: AP pelvis and left hip 2 views. Chest one view. FINDINGS: AP PELVIS: There is severe loss of bilateral hip joint space with subchondral cystic changes and degenerative spurring. 2 views of the left hip reveal no visible fracture, dislocation or subluxation. CHEST: The lungs are well-expanded and clear of acute process. Heart size enlarged. Pulmonary vascularity is normal. No gross bony abnormality seen. XR/XR chest 1V IMPRESSION: Mild cardiomegaly. Lungs are clear. There is severe degenerative arthritic changes bilateral hip joints with periapical spurring and subchondral cyst. No visible acute fracture or dislocation in AP pelvis or the left hip. If patient has significant pain and left hip and a fracture suspected a CT can be performed.
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
[2020-10-10 08:21] LABS: Basophils Percent Auto 0.4 % (0-2); Eosinophils Absolute Auto 0.1 X10*3/uL (0.0-0.4); Eosinophils Percent Auto 2.6 % (0-4); Hematocrit 29.6 % (37-47); Hemoglobin 9.8 g/dl (12.0-16.0); Imm Gran Abs Auto 0.03 X10*3/uL (0.00-0.03); Imm Gran Pct Auto 0.5 % (0.0-0.4); Lymphocytes Absolute Auto 0.9 X10*3/uL (1.2-4.9); Lymphocytes Percent Auto 16.3 % (20-40); MANUAL DIFF FLAG NO; Mean Corpuscular HGB Conc 33.1 g/dl (31.0-35.0); Mean Corpuscular Hemoglobin 31.7 pg (27.0-33.0); Mean Corpuscular Volume 95.8 fL (80-98); Mean Platelet Volume 8.8 fL (9.4-12.3); Monocytes Absolute Auto 0.5 X10*3/uL (0.1-1.2); Monocytes Percent Auto 8.6 % (2-11); Neutrophils Absolute Auto 3.9 X10*3/uL (2.0-8.3); Neutrophils Percent Auto 71.6 % (45-73); Platelet Count 316 X10*3/uL (160-400); Red Blood Count 3.09 X10*6/uL (4.20-5.50); Red Cell Distribution Width 13.8 % (11.0-16.0); White Blood Count 5.5 X10*3/uL (4.8-10.8)
[2020-10-10] MEDS: Ketorolac Tromethamine 30 MG/ML VIAL IVPUSH (08:22)
[2020-10-10 08:45] LABS: Ammonia 31 umol/L (13-55)
[2020-10-10 08:56] LABS: Troponin-I High Sensitivity 13.7 ng/L (<3.5-17.0)
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
[2020-10-10 09:29] LABS: Ethanol < 10 mg/dL
[2020-10-10 09:32] LABS: Alanine Aminotransferase 22 U/L (0-31); Albumin Level 3.4 g/dL (3.5-5.0); Alkaline Phosphatase 98 U/L (39-117); Anion Gap 16 (12-20); Aspartate Amino Transferase 37 U/L (5-31); Bilirubin Total 0.6 mg/dL (0.0-1.0); Blood Urea Nitrogen 22 mg/dL (9-16); Calcium 8.5 mg/dL (8.4-10.2); Carbon Dioxide 23 mmol/L (22-29); Chloride 105 mmol/L (96-108); Creatinine Clr Calc Pharmacy 46.2; Estimated Glomerular Filt Rate 39; Glucose Random 114 mg/dL (60-115); Lipase 22 U/L (8-78); Potassium 4.6 mmol/l (3.3-5.1); Sodium 139 mmol/L (135-145); Total Protein 6.7 g/dL (6.5-8.0)
[2020-10-10 10:14] VITALS: BP 149/83; PULSE 84; RESP 22; O2SAT 95
[2020-10-10 13:09] VITALS: BP 155/44; PULSE 83; RESP 20; TEMP 37.1; O2SAT 94
--- NOTE | 2020-10-10 13:13 | MHC.CM.ED ---
Received case management consult from Dr Chaudhari. Patient came to ER with generalized weakness. Patient lives with her sig other, Juanjo. She has a history of advanced dementia. Her HCP is invoked. She receives nursing and [employer]PER[employer] services through [facility]. Spoke with her nurse, Sunni via telephone. Patient has been failing at home and doesn't feel Juanjo is able to care for her at this time. Spoke with Juanjo via telephone. He feels he can't care for her at this time. [facility] requesting referral there. Referral made via [employer]. However, they are not able to offer a bed. Referral broadcasted. Continue to monitor for d/c needs.
--- NOTE | 2020-10-10 15:42 | CT_ITS ---
EXAMINATION: CT HIP WITHOUT CONTRAST, LEFT CLINICAL INFORMATION: Altered mental status. Left hip pain. COMPARISON: None TECHNIQUE: Axial 2.0 mm thin and reformatted 1 mm thin sagittal and coronal images of left hip were obtained without contrast. This CT examination was performed using dose optimization techniques as appropriate, variously including the following: *Automated exposure control *Adjustment of mA and/or kV according to patient size (this includes techniques or standardized protocols for targeted exams where dose is matched to indication/reason for exam; i.e. extremities or head) *Use of iterative reconstruction technique DLP: 304 mGy-cm FINDINGS: On sagittal reconstructed images there is severe loss of left hip joint space with moderate periapical spurring and subchondral cystic changes. No visible acute fracture, dislocation or subluxation seen. The SI joints are symmetrical. The soft tissues are normal. CT/CT hip LT wo con IMPRESSION: No visible acute fracture, dislocation or subluxation involving left hip. Severe degenerative changes left hip joint.
--- NOTE | 2020-10-10 16:03 | MHC.CM.ED ---
Jonathan from [facility] on site to visit with patient. As long as covid is negative, and PASRR letter is obtained, patient will be able to transfer to [facility] [place] on Wednesday. Continue to monitor for d/c needs.
--- NOTE | 2020-10-10 16:30 | PC.NURSE ---
Pt appears uncomfortable, re positioning self frequently, confused- aox2 to self and place, not time. Pt reports 5.10 l hip pain. Plan to medicate to reduce anxiety and control pain
[2020-10-10] MEDS: Acetaminophen 325 MG TABLET 975 MG PO (16:34)
[2020-10-10] MEDS: Haloperidol Lactate 5 MG/ML VIAL IV (16:34)
[2020-10-10 16:38] LABS: COVID-19 Test Negative (Negative); IDNOW Serial# 9DD0AD1C
[2020-10-10 20:25] VITALS: BP 178/86; PULSE 86; RESP 23; O2SAT 91
--- NOTE | 2020-10-10 20:37 | PC.NURSE ---
pt incont large amount of urine in her sleep. pt sat 90% on room air with auditiory wheezing noted. pt after bed change pt was doing purse lip breathing. pt placed on 2l nc with sat improved to 96% on 2l nc. pt hob elevated. pt shouted out in pain with turning her.
[2020-10-10 22:00] VITALS: BP 178/86; PULSE 84; RESP 20
[2020-10-11] VITALS (16 sets, daily range): BP systolic 143–184; BP diastolic 73–102; PULSE 73–94; RESP 16–20; TEMP 36.7–36.9; O2SAT 93–100
--- NOTE | 2020-10-11 | ECG_ITS ---
Test Reason : CHESTPAIN Blood Pressure : / mmHG Vent. Rate : 083 BPM Atrial Rate : 083 BPM P-R Int : 134 ms QRS Dur : 088 ms QT Int : 396 ms P-R-T Axes : 048 -14 033 degrees QTc Int : 465 ms Normal sinus rhythm with sinus arrhythmia Nonspecific T wave abnormality Abnormal ECG When compared to the previous EKG of No significant changes seen Referred By: Katerine Devlin Electronically Signed By:CAMPOS KELLER MD
--- NOTE | 2020-10-11 01:45 | PC.NURSE ---
pt sleeping no s/s of pain. pt has back and left hp pain with turning and repositioning. pt also has discomfort for the bp cuff
--- NOTE | 2020-10-11 02:03 | PC.NURSE ---
poc 128 no coverage needed
[2020-10-11 02:08] LABS: Glucose, Whole Blood 128 mg/dL (60-115)
[2020-10-11] MEDS: Albuterol Sulfate 90 MCG 8 GM INHALER 2 PUFF INHALE (02:26)
--- NOTE | 2020-10-11 02:32 | ECG_ITS ---
Test Reason : CHEST DSCOMFRT Blood Pressure : / mmHG Vent. Rate : 079 BPM Atrial Rate : 079 BPM P-R Int : 136 ms QRS Dur : 088 ms QT Int : 402 ms P-R-T Axes : 034 -13 042 degrees QTc Int : 460 ms Normal sinus rhythm with sinus arrhythmia Nonspecific T wave abnormality Abnormal ECG When compared with ECG of 10-OCT-2020 07:43, No significant change was found Referred By: Elvia Us Electronically Signed By:CAMPOS KELLER MD
--- NOTE | 2020-10-11 02:32 | XR_ITS ---
EXAMINATION: XR CHEST CLINICAL INFORMATION: Chest pain COMPARISON: 10/10/2020 TECHNIQUE: Frontal view of the chest was obtained. FINDINGS: Mild cardiomegaly. There is pulmonary venous congestion. Linear atelectasis is evident in the left midlung. No significant pulmonary edema or focal consolidation. No pneumothorax or pleural effusion. Spondylosis is present in the thoracic spine. Osteoarthritis is present in the acromioclavicular and glenohumeral joints. XR/XR chest 1V IMPRESSION: Cardiomegaly with pulmonary venous congestion.
[2020-10-11] MEDS: Acetaminophen 325 MG TABLET 975 MG PO (02:33)
[2020-10-11] MEDS: clonazePAM 1 MG TABLET PO ×3 (03:13→21:15)
[2020-10-11] MEDS: QUEtiapine Fumarate 50 MG TABLET PO ×3 (03:13→21:15)
[2020-10-11 03:39] LABS: B Type Natriuretic Peptide 3209 pg/mL (<100); Troponin-I High Sensitivity 15.8 ng/L (<3.5-17.0)
[2020-10-11] MEDS: Pravastatin Sodium 20 MG TABLET PO ×2 (03:53→21:15)
[2020-10-11 04:46] LABS: Glucose Urine UA NEG (NEG); Leukocyte Esterase Urine NEG (NEG); Nitrite Urine NEG (NEG); Urine Blood 3+ (NEG); Urine Ketones 5 MG/DL (NEG); Urine Protein 1+ MG/DL (NEG-TRACE)
[2020-10-11 04:47] LABS: Appearance Urine HAZY; Color Urine STRAW
[2020-10-11] MEDS: Furosemide 40 MG/4 ML VIAL IVPUSH (04:49)
[2020-10-11 05:18] LABS: Squamous Epithelial Cell Urine TRACE /LPF; WBC Urine 0 /HPF (0-4)
--- NOTE | 2020-10-11 06:27 | PC.NURSE ---
pt dias output 900 cc
[2020-10-11 07:24] LABS: Glucose, Whole Blood 111 mg/dL (60-115)
[2020-10-11] MEDS: Albuterol/Iprat 2.5/0.5MG 3 ML AMPUL.NEB INHALE ×4 (07:57→19:50)
--- NOTE | 2020-10-11 08:36 | MHC.CM.ED ---
Received notification from Dr Us that patient will be admitted. Attempted to reach sig other/HCP, Juanjo via telephone at [phone]. Left voicemail explaining patient will be admitted and requested call back to discuss patient going to [facility] when medically stable, since [facility] does not have a bed available. Continue to monitor for d/c needs.
[2020-10-11] MEDS: Escitalopram Oxalate 20 MG TABLET PO (09:18)
[2020-10-11] MEDS: Metoprolol Succinate ER 25 MG TAB.ER.24H PO (09:18)
[2020-10-11] MEDS: Montelukast Sodium 10 MG TABLET PO (09:18)
[2020-10-11] MEDS: Baclofen 20 MG TABLET PO (09:18)
[2020-10-11] MEDS: Folic Acid 1 MG TABLET PO (09:18)
[2020-10-11] MEDS: Thiamine HCL 100 MG TABLET PO (09:18)
[2020-10-11] MEDS: Sennosides 8.6 MG TABLET PO ×2 (09:19→21:15)
[2020-10-11 10:03] LABS: Base Excess VBG 5.9 mmol/L; HCO3 VBG 31 mmol/L; PCO2 VBG 47 mmHg; PO2 VBG 52 mmHg; pH VBG 7.42 (7.32-7.43)
[2020-10-11 10:31] LABS: Amphetamine Screen Urine Not Detected (Not Detect); Barbiturates, Urine Not Detected (Not Detect); Benzodiazepines Screen Urine Not Detected (Not Detect); Cannabinoid Screen Urine POSITIVE (Not Detect); Cocaine Screen Urine Not Detected (Not Detect); Opiate Screen Urine Not Detected (Not Detect); Phencyclidine Screen Urine Not Detected (Not Detect)
[2020-10-11 10:59] LABS: MANUAL DIFF FLAG NO
[2020-10-11 11:01] LABS: Basophils Percent Auto 0.4 % (0-2); Eosinophils Percent Auto 0.2 % (0-4); Hemoglobin 10.1 g/dl (12.0-16.0); Imm Gran Abs Auto 0.01 X10*3/uL (0.00-0.03); Imm Gran Pct Auto 0.2 % (0.0-0.4); Lymphocytes Absolute Auto 0.9 X10*3/uL (1.2-4.9); Mean Corpuscular HGB Conc 33.7 g/dl (31.0-35.0); Mean Corpuscular Hemoglobin 31.8 pg (27.0-33.0); Mean Corpuscular Volume 94.3 fL (80-98); Mean Platelet Volume 8.6 fL (9.4-12.3); Monocytes Absolute Auto 0.6 X10*3/uL (0.1-1.2); Monocytes Percent Auto 10.2 % (2-11); Neutrophils Absolute Auto 4.2 X10*3/uL (2.0-8.3); Platelet Count 267 X10*3/uL (160-400); Red Blood Count 3.18 X10*6/uL (4.20-5.50); Red Cell Distribution Width 13.7 % (11.0-16.0); White Blood Count 5.7 X10*3/uL (4.8-10.8)
[2020-10-11 11:40] LABS: Anion Gap 10 (12-20); Blood Urea Nitrogen 19 mg/dL (9-16); Calcium 7.7 mg/dL (8.4-10.2); Carbon Dioxide 28 mmol/L (22-29); Chloride 103 mmol/L (96-108); Creatinine Clr Calc Pharmacy 46.8; Estimated Glomerular Filt Rate 40; Glucose Random 231 mg/dL (60-115); Potassium 3.4 mmol/l (3.3-5.1); Sodium 138 mmol/L (135-145)
--- NOTE | 2020-10-11 12:31 | PC.NURSE ---
report given to [facility] [place] [place]gas
[2020-10-11] MEDS: Heparin Sodium,Porcine 5,000 UNIT/ML VIAL 5000 UNIT SUBCUT (13:21)
--- NOTE | 2020-10-11 14:36 | HP_ITS ---
DATE OF SERVICE: 10/11/2020 PRIMARY CARE PROVIDER: Not listed. CHIEF COMPLAINT: Body aches and pain. HISTORY OF PRESENT ILLNESS: The patient was initially brought to the ER on October 08 after a fall and apparently had been binge drinking. She was brought by her . She was then discharged home and then again brought back on Wednesday. The patients Visiting nurse (Louise Potter ) stated that she felt like the patient was being given marijuana and alcohol by her she thought that was dangerous because the patient was declared to not be her own decision maker. Apparently the visiting nurse sent a case management referral for safety, At that time, she had been showing aggressive behaviors. She had a head CT which was negative for any acute abnormality. It appears at that time the patient was going to be discharged home with a diagnosis of hyponatremia and alcohol intoxication; however, the patient began to have chest pain and was requiring oxygen due to shortness of breath. She had imaging which was consistent with congestive heart failure. Her BNP was noted to be 3209 with previous level being normal. The patient was given IV Lasix and Dudley catheter was placed. She does have a history of schizophrenia and dementia chronically. During the interview, the patient did open her eyes. When asked if she had pain and she had whispered no . Otherwise, no other information was able to be obtained. In terms of her labs, she was noted to be chronically anemic with no significant change. VBG showed pCO2 of 47. Her BNP was abnormal as noted above. Urinalysis from today showed negative nitrites and no wbcs. She did have positive marijuana detected in urine toxicology and a negative COVID PCR. Her vital signs have been stable and there does not appear to be any significant hypoxia at any point. She is currently on 1 L, saturating 97%. She was given Haldol, IV Lasix, and albuterol while in the ER for COPD exacerbation. She will be admitted for further management and treatment of acute congestive heart failure and COPD exacerbation. PAST MEDICAL HISTORY: 1. Obstructive sleep apnea, unknown if patient is on CPAP. 2. Coronary artery disease, status post myocardial infarction. 3. Diabetes mellitus. 4. COPD. 5. Hypertension. 6. Osteoarthritis. 7. Bipolar disorder. 8. Dementia. 9. Appendectomy. 10. History of respiratory failure requiring trach and feeding tube. FAMILY HISTORY: According to the record, sister with history of breast cancer. SOCIAL HISTORY: According to the record, the patient smokes marijuana and uses alcohol, unable to obtain amount. ALLERGIES: ADVAIR AND PAXIL. MEDICATIONS: 1. Acetaminophen 650 mg p.o. q.12 hours p.r.n. 2. Albuterol 2 puffs q.4 to 6 hours p.r.n. 3. Aspirin 81 mg at bedtime. 4. Baclofen 20 mg p.o. daily. 5. Citalopram 40 mg p.o. daily. 6. Clonazepam 1 mg p.o. b.i.d. 7. Flovent 1 puff b.i.d. 8. Folic acid 1 mg b.i.d. 9. Insulin lispro sliding scale. 10. Ipratropium albuterol 1 amp q.i.d. 11. Metoprolol succinate 25 mg p.o. daily. 12. Montelukast sodium 10 mg p.o. daily. 13. Pravastatin 20 mg p.o. at bedtime. 14. Seroquel 50 mg p.o. b.i.d. 15. Sennoside 8.6 mg p.o. b.i.d. 16. Thiamine 100 mg p.o. daily. REVIEW OF SYSTEMS: Unable to obtain due to the patient's lethargy. PHYSICAL EXAMINATION: CONSTITUTIONAL: The patient resting in bed, sleeping. VITAL SIGNS: 82, 16, 161/73, 97% on 1 L. SKIN: Intact without rashes or open sores. HEENT: Head is normocephalic and atraumatic. Eyes, pupils are PERRLA. Sclerae anicteric. Mouth and throat: Mucous membranes are intact and dry. NECK: Supple. No lymphadenopathy. No JVD noted. CHEST: Expiratory wheezes throughout. HEART: Regular rate and rhythm. ABDOMEN: Obese. Positive bowel sounds. NEUROLOGIC: The patient is sleeping, unable to assess neuro status. LABORATORY DATA: WBC 5.5, hemoglobin 9.8, hematocrit 29.6, platelets 316. Sodium is 139, potassium is 4.6, chloride is 105, bicarb is 23, BUN is 22, creatinine is 1.34. BNP is 3209. Urine toxicology positive for marijuana. ASSESSMENT AND PLAN: A 65-year-old woman who is being admitted with acute congestive heart failure exacerbation and chronic obstructive pulmonary disease exacerbation. 1. Congestive heart failure. Does not appear to have any history of congestive heart failure. We will continue IV Lasix, cardiology consultation, follow intake and output, daily weights, check BNP tomorrow. Will likely need echocardiogram. 2. Chronic obstructive pulmonary disease exacerbation. Solu-Medrol, Tara, continue supplemental oxygen. 3. Diabetes mellitus. Sliding scale, ADA diet. 4. History of coronary artery disease. Continue beta suzette, aspirin and statin. 5. Bipolar disorder. Continue Seroquel. 6. Alcohol abuse. Place on CIWA scale. Monitor for any signs of withdrawal. Continue folic acid, thiamine. 7. Deep vein thrombosis prophylaxis with heparin. 8. Case discussed with Dr. Patiño. 9. Full code. MYCHAL Floyd MD JR/ANTL / [id number] MTDD
--- NOTE | 2020-10-11 15:11 | P.CONCA_ITS ---
History of Present Illness History of Present Illness Date of Service: 10/11/20 Requesting physician: Katerine Devlin Consult reason: congestive heart failure Chief complaint: CHF, COPD Narrative: We are asked to consult on Belia for symptoms of sudden shortness of breath, hypoxemia and chest discomfort with elevated BNP and findings c onsistent with congestive heart failure in the emergency room. She has a difficult historian. She denies any prior cardiac historyReported in the chart that she has coronary artery disease infarction. However she denies prior having cardiac catheterization stenting. She has no history of CHF. She has prior history of hypertension diabetes morbid obesity obstructive sleep apnea bipolar disorder alcohol abuse and dementia. Patient had presented here for generalized body ache and lethargy and subsequently in the ED developed sudden onset chest discomfort and hypoxemia. Findings consistent with congestive heart failure with BNP significantly elevated in 3209 range. Troponins are flat. EKG did not show any acute ischemic changes. She has received Lasix. Currently she denies any chest discomfort or shortness of breath. She appears very comfortable at this point in time. Review of Systems Constitutional: Constitutional: Reports fatigue and Reports lethargy Cardiovascular: Cardiovascular: Reports chest pain, Denies leg edema, Denies palpitations and Reports dyspnea Respiratory: Respiratory: Denies cough and Reports dyspnea Gastrointestinal: Gastrointestinal: Reports no additional gastrointestinal complaints Genitourinary: Genitourinary: Reports no additional female genitourinary complaints Endocrine: Endocrine: Reports fatigue and Denies palpitations PMFSH Past Medical History Medical History Bipolar 1 disorder COPD (chronic obstructive pulmonary disease) Coronary artery disease Diabetes Hypertension Osteoarthritis Sleep apnea Surgical History Surgical History Hx of appendectomy Social History Social History Household Members: Significant Other Housing: Apartment Do you presently have visiting nurse or other home services: Yes Alcohol intake: never Smoking Status: Current some day smoker Cigarettes Per Day: 3 Smoked in Last 30 Days: Yes Patient Interested in Nicotine Replacement: Yes Patient Given Instructions on How to Stop Smoking: Yes Date Education Initiated: 10/11/20 Use of substances other than those prescribed or required for medical reasons: No Substance Use Type Other:: denies but urine shows marijuana Have you been hit, kicked, punched, or otherwise hurt by someone within the past year? If so, by whom?: No Do you feel safe in your current relationship?: Yes Is there a partner from a previous relationship who is making you feel unsafe now?: No Advance Directives: No Advance Directives Information Provided: No service: No Current occupational status: other Meds Allergies Allergy/AdvReac Type Severity Reaction Status Date / Time advair Allergy Unknown Unknown Uncoded 10/08/20 20:46 paxil Allergy Unknown Unknown Uncoded 10/08/20 20:46 From PAXIL AdvReac Intermediate NAUSEA & Uncoded 10/08/20 20:46 VOMITING Home Medications Medication Instructions Recorded Confirmed Type Flovent HFA 1 puff INHALATION BID 08/18/20 10/10/20 History albuterol sulfate [Ventolin HFA] 2 puff INHALATION Q4-6H PRN 08/18/20 10/10/20 H istory aspirin 1 tab PO BEDTIME 08/18/20 10/10/20 History citalopram 40 mg PO QAM 08/18/20 10/10/20 History ipratropium-albuterol 1 amp INHALATION QID 08/18/20 10/10/20 History montelukast 10 mg PO DAILY 08/18/20 10/11/20 History acetaminophen 650 mg PO Q12H PRN 10/10/20 10/10/20 History baclofen 20 mg PO DAILY 10/10/20 10/10/20 History clonazepam 1 mg PO BID 10/10/20 10/10/20 History metoprolol succinate 25 mg PO DAILY 10/10/20 10/10/20 History pravastatin 20 mg PO BEDTIME 10/10/20 10/10/20 History quetiapine 50 mg PO BID 10/10/20 10/10/20 History sennosides [senna] 8.6 mg PO BID 10/10/20 10/10/20 History Physical Exam Vital Signs: Vital Signs: Last Vital Signs Temp 98.4 F 10/11/20 12:00 Pulse 87 10/11/20 12:48 Resp 20 10/11/20 12:00 BP 143/81 H 10/11/20 12:00 Pulse Ox 95 10/11/20 12:00 Body Mass Index 39.4 Neck: Neck: Yes trachea midline, Yes supple and Yes no JVD Resp: Effort & Inspection: normal respiratory effort Auscultation: clear to auscultation bilaterally Cardio: Jugular venous distension: no JVD Palpation: normal PMI Rate: regular rate Rhythm: regular rhythm Heart sounds: S1 normal heart sound present and Other heart sounds present (S4) Skin: General skin exam: no rashes or lesions noted Extrem: General: No clubbing, No cyanosis and Yes pedal edema Results Labs and Meds Result diagrams: 10/11/20 10:50 10/11/20 10:50 Lab results: Laboratory Results - last 24 hr 10/10/20 10/11/20 10/11/20 16:13 02:02 03:07 WBC RBC Hgb Hct MCV MCH MCHC RDW Plt Count MPV Immature Gran % (Auto) Neut % (Auto) Lymph % (Auto) Esmeralda % (Auto) Eos % (Auto) Baso % (Auto) Lymph # (Auto) Esmeralda # (Auto) Eos # (Auto) Baso # (Auto) Abs Immat Gran (auto) Absolute Neuts (auto) Absolute Nucleated RBC Nucleated RBC % (auto) VBG pH VBG pCO2 VBG pO2 VBG HCO3 VBG O2 Saturation VBG Base Excess Sodium Potassium Chloride Carbon Dioxide Anion Gap BUN Creatinine Estim Creat Clear Calc Estimated GFR POC Glucose 128 H Random Glucose Calcium Troponin I High Sens 15.8 B-Natriuretic Peptide 3209 H Urine Color Urine Appearance Urine pH Ur Specific [place] Urine Protein Urine Glucose (UA) Urine Ketones Urine Blood Urine Nitrite Ur Leukocyte Esterase Urine RBC Urine WBC Ur Squamous Epith Cells Urine Bacteria Urine Opiates Screen Ur Barbiturates Screen Ur Phencyclidine Scrn Ur Amphetamines Screen U Benzodiazepines Scrn Urine Cocaine Screen U Marijuana (THC) Screen COVID-19 (ZAKIA) Negative COVID-19 Clin Com See Note 10/11/20 10/11/20 10/11/20 04:36 07:18 09:52 WBC RBC Hgb Hct MCV MCH MCHC RDW Plt Count MPV Immature Gran % (Auto) Neut % (Auto) Lymph % (Auto) Esmeralda % (Auto) Eos % (Auto) Baso % (Auto) Lymph # (Auto) Esmeralda # (Auto) Eos # (Auto) Baso # (Auto) Abs Immat Gran (auto) Absolute Neuts (auto) Absolute Nucleated RBC Nucleated RBC % (auto) VBG pH VBG pCO2 VBG pO2 VBG HCO3 VBG O2 Saturation VBG Base Excess Sodium Potassium Chloride Carbon Dioxide Anion Gap BUN Creatinine Estim Creat Clear Calc Estimated GFR POC Glucose 111 Random Glucose Calcium Troponin I High Sens B-Natriuretic Peptide Urine Color STRAW Cancelled Urine Appearance HAZY Cancelled Urine pH 7.0 Cancelled Ur Specific [place] 1.020 Cancelled Urine Protein 1+ H Cancelled Urine Glucose (UA) NEG Cancelled Urine Ketones 5 Cancelled Urine Blood 3+ H Cancelled Urine Nitrite NEG Cancelled Ur Leukocyte Esterase NEG Cancelled Urine RBC 76-150 H Urine WBC 0 Ur Squamous Epith Cells TRACE Urine Bacteria NONE Urine Opiates Screen Ur Barbiturates Screen Ur Phencyclidine Scrn Ur Amphetamines Screen U Benzodiazepines Scrn Urine Cocaine Screen U Marijuana (THC) Screen COVID-19 (ZAKIA) COVID-19 [place] Com 10/11/20 10/11/20 10/11/20 09:52 09:52 10:50 WBC 5.7 RBC 3.18 L Hgb 10.1 L Hct 30.0 L MCV 94.3 MCH 31.8 MCHC 33.7 RDW 13.7 Plt Count 267 MPV 8.6 L Immature Gran % (Auto) 0.2 Neut % (Auto) 74.0 H Lymph % (Auto) 15.0 L Esmeralda % (Auto) 10.2 Eos % (Auto) 0.2 Baso % (Auto) 0.4 Lymph # (Auto) 0.9 L Esmeralda # (Auto) 0.6 Eos # (Auto) 0.0 Baso # (Auto) 0.0 Abs Immat Gran (auto) 0.01 Absolute Neuts (auto) 4.2 Absolute Nucleated RBC 0.000 Nucleated RBC % (auto) 0.0 VBG pH 7.42 VBG pCO2 47 VBG pO2 52 VBG HCO3 31 VBG O2 Saturation 82.0 VBG Base Excess 5.9 Sodium Potassium Chloride Carbon Dioxide Anion Gap BUN Creatinine Estim Creat Clear Calc Estimated GFR POC Glucose Random Glucose Calcium Troponin I High Sens B-Natriuretic Peptide Urine Color Urine Appearance Urine pH Ur Specific [place] Urine Protein Urine Glucose (UA) Urine Ketones Urine Blood Urine Nitrite Ur Leukocyte Esterase Urine RBC Urine WBC Ur Squamous Epith Cells Urine Bacteria Urine Opiates Screen Not Detected Ur Barbiturates Screen Not Detected Ur Phencyclidine Scrn Not Detected Ur Amphetamines Screen Not Detected U Benzodiazepines Scrn Not Detected Urine Cocaine Screen Not Detected U Marijuana (THC) Screen POSITIVE H COVID-19 (ZAKIA) COVID-19 Clin Com 10/11/20 10:50 WBC RBC Hgb Hct MCV MCH MCHC RDW Plt Count MPV Immature Gran % (Auto) Neut % (Auto) Lymph % (Auto) Esmeralda % (Auto) Eos % (Auto) Baso % (Auto) Lymph # (Auto) Esmeralda # (Auto) Eos # (Auto) Baso # (Auto) Abs Immat Gran (auto) Absolute Neuts (auto) Absolute Nucleated RBC Nucleated RBC % (auto) VBG pH VBG pCO2 VBG pO2 VBG HCO3 VBG O2 Saturation VBG Base Excess Sodium 138 Potassium 3.4 D Chloride 103 Carbon Dioxide 28 Anion Gap 10 L BUN 19 H Creatinine 1.32 Estim Creat Clear Calc 46.8 Estimated GFR 40 POC Glucose Random Glucose 231 H D Calcium 7.7 L D Troponin I High Sens B-Natriuretic Peptide Urine Color Urine Appearance Urine pH Ur Specific [place] Urine Protein Urine Glucose (UA) Urine Ketones Urine Blood Urine Nitrite Ur Leukocyte Esterase Urine RBC Urine WBC Ur Squamous Epith Cells Urine Bacteria Urine Opiates Screen Ur Barbiturates Screen Ur Phencyclidine Scrn Ur Amphetamines Screen U Benzodiazepines Scrn Urine Cocaine Screen U Marijuana (THC) Screen COVID-19 (ZAKIA) COVID-19 Clin Com EKG shows normal sinus rhythm with nonspecific ST T wave changes Imaging Radiologist's impression: Impressions Hip CT 10/10/20 15:42 IMPRESSION: No visible acute fracture, dislocation or subluxation involving left hip. Severe degenerative changes left hip joint. Chest X-Ray 10/11/20 02:32 IMPRESSION: Cardiomegaly with pulmonary venous congestion. Assessment and Plan (1) CHF exacerbation: Qualifiers: Heart failure type: unspecified Qualified Code(s): I50.9 - Heart failure, unspecified Status: Acute Sudden-onset shortness of breath and chest discomfort in elderly woman with significant risk factors including hypertension, diabetes and age for underlying coronary artery disease. Ischemic heart failure is highly likely. She does not have significant EKG changes at current time and troponins are fl at. She has responded well to diuretic therapy and currently appears to be pretty comfortable. Continue IV diuresis. Strict intake and output chart needs to be pursued. Given her psychological issues as well as prior alcohol use and dementia and not sure as she would be very cooperative workup at this point time. She does not require urgent cardiac catheterization and put some point time will require ischemic workup if she complies. CHF education to be provided. Low-salt diet to be pursued. Aggressive control of blood pressure. Start on metoprolol therapy. Add Aldactone 12.5 mg to her regimen. Echocardiogram should be obtained. Follow-up BMP and BNP tomorrow
[2020-10-11 16:36] LABS: Glucose, Whole Blood 185 mg/dL (60-115)
[2020-10-11] MEDS: Insulin Lispro 100 UNIT/ML 3 ML VIAL SUBCUT ×2 (16:56→21:15)
[2020-10-11] MEDS: 0.9 % Sodium Chloride Flush 3 ML SYRINGE IVFLUSH (16:58)
[2020-10-11] MEDS: Acetaminophen 325 MG TABLET 650 MG PO (17:13)
[2020-10-11] MEDS: Furosemide 20 MG/2 ML VIAL IVPUSH (17:14)
--- NOTE | 2020-10-11 17:51 | PM.EVENT ---
Event Note Date of Service: 10/11/20 Event Note: Patient seen and examined: Patient has a history of schizophrenia and dementia chronically. Patient was recently here for fall and binge drinking. She was brought by her . She was then discharged home and then again within. Patient is Visiting nurse (Louise Potter ) stated -? patient was being given marijuana and alcohol by her she thought that was dangerous because the patient was declared to not be her own decision maker. Apparently the visiting nurse sent a case management referral for safety, At that time, she had been showing aggressive behaviors. She had a head CT which was negative for any acute abnormality. It appears at that time the patient was going to be discharged home with a diagnosis of hyponatremia and alcohol intoxication; however, the patient began to have chest pain and was requiring oxygen due to shortness of breath. She had imaging which was consistent with congestive heart failure. Her BNP was noted to be 3209 with previous level being normal. Physical exam: Shortness of breath seems improving Cvs: rrr, [id number] , no murmur res: clear to auscultation ,no rhonchii or wheezing abd: no rebound or guarding ,nt, bs present. ext pulses present , no cyanosis , 1+edema neuro: axo2 , nonfocal. Assessment and plan: Toxic metabolic encephalopathy/dementia/psychiatric issue/alcohol Patient received Haldol in ED Initially was more sleepy but by the time late afternoons she was opening eyes and answering simple questions. Alcohol woodward: Will place the patient on CIWA scale CHF exacerbation: Add echo, morning BNP VBG seems fine Continue oxygen and taper down as needed thiamine folic acid
[2020-10-11] MEDS: Aspirin Enteric Coated 81 MG TABLET.DR PO (21:15)
[2020-10-11] MEDS: Morphine Sulfate 2 MG/ML CARTRIDGE IVPUSH (21:18)
[2020-10-11 21:28] LABS: Troponin-I High Sensitivity 9.6 ng/L (<3.5-17.0)
[2020-10-11 21:42] LABS: Glucose, Whole Blood 172 mg/dL (60-115)
--- NOTE | 2020-10-11 23:04 | PC.NURSE ---
2013; Patient reported chest pain and right shoulder pain, per certified bench jeweler technician, pt describes pain as pressure and rates it 10/10. Vitals are temp 98.1, hr 90, bp 184/90, rr 18, o2 98% on room air. Dr. Harden made aware and Katerine Devlin aware. Orders placed for STAT EKG, troponin -I high sensitivity, pain medication. EKG completed and sent to Katerine Devlin. Patient medicated with morphine for 10/10 pain. 2129; Patient reports pain is very minimal, denies sob. 2199; Patient sleeping, even respirations. Continue to monitor.
[2020-10-12] VITALS (8 sets, daily range): BP systolic 151–177; BP diastolic 67–90; PULSE 84–95; RESP 16–20; TEMP 36.6–37.4; O2SAT 94–99
[2020-10-12] MEDS: Heparin Sodium,Porcine 5,000 UNIT/ML VIAL 5000 UNIT SUBCUT ×2 (02:10→14:29)
[2020-10-12] MEDS: 0.9 % Sodium Chloride Flush 3 ML SYRINGE IVFLUSH ×4 (02:11→20:11)
[2020-10-12 07:06] LABS: Hematocrit 30.2 % (37-47); Hemoglobin 10.3 g/dl (12.0-16.0); Imm Gran Abs Auto 0.03 X10*3/uL (0.00-0.03); Imm Gran Pct Auto 0.6 % (0.0-0.4); Lymphocytes Absolute Auto 0.5 X10*3/uL (1.2-4.9); Lymphocytes Percent Auto 10.3 % (20-40); MANUAL DIFF FLAG SCAN; Mean Corpuscular HGB Conc 34.1 g/dl (31.0-35.0); Mean Corpuscular Hemoglobin 31.4 pg (27.0-33.0); Mean Corpuscular Volume 92.1 fL (80-98); Mean Platelet Volume 8.9 fL (9.4-12.3); Monocytes Absolute Auto 0.1 X10*3/uL (0.1-1.2); Monocytes Percent Auto 2.4 % (2-11); Neutrophils Absolute Auto 4.4 X10*3/uL (2.0-8.3); Neutrophils Percent Auto 86.7 % (45-73); Platelet Count 290 X10*3/uL (160-400); Red Blood Count 3.28 X10*6/uL (4.20-5.50); Red Cell Distribution Width 13.4 % (11.0-16.0); SCAN SMEAR FLAG 1
[2020-10-12 07:19] LABS: Ammonia 32 umol/L (13-55)
[2020-10-12 07:36] LABS: SLIDE REVIEW VERIFIED
[2020-10-12 07:40] LABS: Anion Gap 15 (12-20); Blood Urea Nitrogen 28 mg/dL (9-16); Carbon Dioxide 26 mmol/L (22-29); Chloride 98 mmol/L (96-108); Estimated Glomerular Filt Rate 34; Glucose Random 157 mg/dL (60-115); Potassium 4.3 mmol/l (3.3-5.1); Sodium 135 mmol/L (135-145)
[2020-10-12] MEDS: Albuterol/Iprat 2.5/0.5MG 3 ML AMPUL.NEB INHALE ×3 (07:51→20:41)
[2020-10-12 07:58] LABS: B Type Natriuretic Peptide 2394 pg/mL (<100)
[2020-10-12 08:22] LABS: Glucose, Whole Blood 159 mg/dL (60-115)
[2020-10-12] MEDS: clonazePAM 1 MG TABLET PO ×2 (09:35→20:11)
[2020-10-12] MEDS: Furosemide 20 MG/2 ML VIAL IVPUSH (09:45)
[2020-10-12] MEDS: Escitalopram Oxalate 20 MG TABLET PO (09:46)
[2020-10-12] MEDS: QUEtiapine Fumarate 50 MG TABLET PO ×2 (09:46→20:11)
[2020-10-12] MEDS: Metoprolol Succinate ER 25 MG TAB.ER.24H PO (09:46)
[2020-10-12] MEDS: Folic Acid 1 MG TABLET PO (09:46)
[2020-10-12] MEDS: Baclofen 20 MG TABLET PO (09:46)
[2020-10-12] MEDS: Montelukast Sodium 10 MG TABLET PO (09:46)
[2020-10-12] MEDS: Insulin Lispro 100 UNIT/ML 3 ML VIAL SUBCUT ×3 (09:47→17:45)
[2020-10-12] MEDS: Sennosides 8.6 MG TABLET PO ×2 (09:48→20:11)
--- NOTE | 2020-10-12 11:18 | P.PNCA_ITS ---
Subjective Subjective Date of Service: 10/12/20 Principal diagnosis: CHF, chest pain Interval history: Patient denies any complaint of chest pain or shortness of breath. Feels well. Has diuresed. Blood pressure remains elevated. BNP is still elevated Review of Systems Constitutional: Reports no additional constitutional complaints Cardiovascular: Reports no additional cardiovascular complaints Respiratory: Reports no additional respiratory complaints Hematologic/Lymphatic: Reports no additional hematologic/lymphatic complaints Allergic/Immunologic: Reports no additional allergic/immunologic complaints Physical Exam Vital Signs: Last Vital Signs Temp 99.4 F 10/12/20 08:00 Pulse 92 10/12/20 09:46 Resp 20 10/12/20 08:00 BP 165/90 H 10/12/20 09:46 Pulse Ox 95 10/12/20 08:00 Body Mass Index 39.4 Const General: comfortable, no acute distress, alert and awake Nutritional Appearance: obese Neck Neck: Yes trachea midline, Yes supple and Yes other (Difficult to evaluate JVD) Resp Effort & Inspection: normal respiratory effort Auscultation: clear to auscultation bilaterally Cardio Palpation: normal PMI Rate: regular rate Rhythm: regular rhythm Heart sounds: S1 normal heart sound present and S2 normal heart sound present GI Auscultation: normal bowel sounds Neuro General: no focal motor deficits Extrem General: No clubbing, No cyanosis and Yes edema Results Labs and Meds Result diagrams: 10/12/20 06:40 10/12/20 06:40 Lab results: Laboratory Results - last 24 hr 10/11/20 10/11/20 10/11/20 10:50 16:33 20:30 WBC RBC Hgb Hct MCV MCH MCHC RDW Plt Count MPV Immature Gran % (Auto) Neut % (Auto) Lymph % (Auto) [place] % (Auto) Eos % (Auto) Baso % (Auto) Lymph # (Auto) [place] # (Auto) Eos # (Auto) Baso # (Auto) Abs Immat Gran (auto) Absolute Neuts (auto) Absolute Nucleated RBC Nucleated RBC % (auto) Smear Tech's Comments Sodium 138 Potassium 3.4 D Chloride 103 Carbon Dioxide 28 Anion Gap 10 L BUN 19 H Creatinine 1.32 Estim Creat Clear Calc 46.8 Estimated GFR 40 POC Glucose 185 H Random Glucose 231 H D Calcium 7.7 L D Ammonia Troponin I High Sens 9.6 B-Natriuretic Peptide 01/10/12/20 10/12/20 20:52 06:40 06:40 WBC 5.0 RBC 3.28 L Hgb 10.3 L Hct 30.2 L MCV 92.1 MCH 31.4 MCHC 34.1 RDW 13.4 Plt Count 290 MPV 8.9 L Immature Gran % (Auto) 0.6 H Neut % (Auto) 86.7 H Lymph % (Auto) 10.3 L [place] % (Auto) 2.4 Eos % (Auto) 0.0 Baso % (Auto) 0.0 Lymph # (Auto) 0.5 L [place] # (Auto) 0.1 Eos # (Auto) 0.0 Baso # (Auto) 0.0 Abs Immat Gran (auto) 0.03 Absolute Neuts (auto) 4.4 Absolute Nucleated RBC 0.000 Nucleated RBC % (auto) 0.0 Smear Tech's Comments VERIFIED Sodium Potassium Chloride Carbon Dioxide Anion Gap BUN Creatinine Estim Creat Clear Calc Estimated GFR POC Glucose 172 H Random Glucose Calcium Ammonia Troponin I High Sens B-Natriuretic Peptide 2394 H 10/12/20 10/12/20 10/12/20 06:40 06:40 08:16 WBC RBC Hgb Hct MCV MCH MCHC RDW Plt Count MPV Immature Gran % (Auto) Neut % (Auto) Lymph % (Auto) [place] % (Auto) Eos % (Auto) Baso % (Auto) Lymph # (Auto) [place] # (Auto) Eos # (Auto) Baso # (Auto) Abs Immat Gran (auto) Absolute Neuts (auto) Absolute Nucleated RBC Nucleated RBC % (auto) Smear Tech's Comments Sodium 135 Potassium 4.3 D Chloride 98 Carbon Dioxide 26 Anion Gap 15 BUN 28 H Creatinine 1.51 H Estim Creat Clear Calc 41.0 Estimated GFR 34 POC Glucose 159 H Random Glucose 157 H Calcium 9.0 D Ammonia 32 Troponin I High Sens B-Natriuretic Peptide Progress Note: A&P Assessment and plan (1) CHF exacerbation: Status: Acute Assessment and Plan: Sudden onset heart failure and chest pain. Blood pressure remains elevated. In distress. Continue IV Lasix for 1 more day. Trend BMP tomorrow. Will obtain echocardiogram today. Strict intake and output chart. Continue to trend BMP. Add Aldactone 25 mg to her regimen for better blood pressure control. Will sign of the case. Let us know if there is anything else to follow-up for her. Fall Risk Details Current Medications: Current Medications Generic Name Dose Route Start Last Admin Trade Name Frejo PRN Reason Stop Dose Admin Acetaminophen 650 mg 10/11/20 06:14 10/11/20 17:13 Acetaminophen 325 Mg Tablet PO 650 mg Q6H PRN Administration Pain Acetaminophen 650 mg 10/11/20 10:32 Acetaminophen Supp 650 Mg Supp.Rect IA Q6H PRN Pain, Mild (Pain Scale 1-3) Albuterol Sulfate 2 puff 10/11/20 01:54 10/11/20 02:26 Albuterol Sulfate 90 Mcg 8 Gm Inhaler INHALE 2 puff Q4H PRN Administration Shortness Of Breath Or Wheezing Albuterol/Ipratropium 3 ml 10/11/20 08:00 10/12/20 07:51 Albuterol/Iprat 2.5/0.5mg 3 Ml Ampul.Neb INHALE 3 ml RQID YUMIKO Administration Aspirin 81 mg 10/11/20 21:00 10/11/20 21:15 Aspirin Enteric Coated 81 Mg Tablet. PO 81 mg BEDTIME YUMIKO Administration Baclofen 20 mg 10/11/20 09:00 10/12/20 09:46 Baclofen 20 Mg Tablet PO 20 mg DAILY YUMIKO Administration Clonazepam 1 mg 10/11/20 02:00 10/11/20 21:15 Clonazepam 1 Mg Tablet PO 1 mg BID YUMIKO Administration Escitalopram Oxalate 20 mg 10/11/20 09:00 10/12/20 09:46 Escitalopram Oxalate 20 Mg Tablet PO 20 mg DAILY YUMIKO Administration Fluticasone Propionate 1 puff 10/11/20 08:00 10/12/20 07:57 Fluticasone Propionate 250 Mcg Blst.W.Dev INHALE Not Given RBID YUMIKO Folic Acid 1 mg 10/11/20 09:00 10/12/20 09:46 Folic Acid 1 Mg Tablet PO 1 mg DAILY YUMIKO Administration Folic Acid 1 mg 10/12/20 09:00 10/12/20 09:47 Folic Acid 1 Mg Tablet PO Not Given DAILY YUMIKO Furosemide 20 mg 10/11/20 18:00 10/12/20 09:45 Furosemide 20 Mg/2 Ml Vial IVPUSH 20 mg BID@0900,1800 YUMIKO Administration Protocol Heparin Sodium (Porcine) 5,000 unit 10/11/20 13:00 10/12/20 02:10 Heparin Sodium,Porcine 5,000 Unit/Ml Vial SUBCUT 5,000 unit Q12H YUMIKO Administration Thiamine HCl 200 mg/ Sodium 102 mls @ 204 mls/hr 10/12/20 09:00 Chloride IV Q8H YUMIKO Insulin Human Lispro 0 unit 10/11/20 07:30 10/12/20 09:47 Insulin Lispro 100 Unit/Ml 3 Ml Vial SUBCUT 1 unit QIDACHS YUMIKO Administration Protocol Methylprednisolone Sodium Succinate 40 mg 10/11/20 10:32 10/12/20 09:45 Methylprednisolone Sod Succ/Pf 40 Mg/Ml Vial IVPUSH 40 mg Q8H YUMIKO Administration Metoprolol Succinate 25 mg 10/11/20 09:00 10/12/20 09:46 Metoprolol Succinate Er 25 Mg Tab.Er.24h PO 25 mg DAILY YUMIKO Administration Protocol Montelukast Sodium 10 mg 10/11/20 09:00 10/12/20 09:46 Montelukast Sodium 10 Mg Tablet PO 10 mg DAILY YUMIKO Administration Morphine Sulfate 2 mg 10/11/20 21:01 10/11/20 21:18 Morphine Sulfate 2 Mg/Ml Cartridge IVPUSH 2 mg Q6H PRN Administration Pain, Mild (Pain Scale 1-3) Ondansetron HCl 4 mg 10/11/20 10:32 Ondansetron Hcl 4 Mg/2 Ml Vial IVPUSH Q8H PRN Nausea and Vomiting Pharmacy Consult 1 each 10/10/20 15:10 Consult Rx Perform Med Rec MISCELLANE ONCE PRN Consult order Pravastatin Sodium 20 mg 10/11/20 02:00 10/11/20 21:15 Pravastatin Sodium 20 Mg Tablet PO 20 mg BEDTIME YUMIKO Administration Quetiapine Fumarate 50 mg 10/11/20 02:00 10/12/20 09:46 Quetiapine Fumarate 50 Mg Tablet PO 50 mg BID YUMIKO Administration Senna 8.6 mg 10/11/20 09:00 10/12/20 09:48 Sennosides 8.6 Mg Tablet PO 8.6 mg BID YUMIKO Administration Sodium Chloride 3 ml 10/11/20 16:00 10/12/20 09:48 0.9 % Sodium Chloride Flush 3 Ml Syringe IVFLUSH 3 ml QSHIFT YUMIKO Administration Time Spent With Patient Time: Total time spent is greater than 50% in coordination of care (as documented) at patient's floor/unit and/or counseling patient: Time with patient: 25 - 35 minutes
[2020-10-12 11:27] LABS: Glucose, Whole Blood 151 mg/dL (60-115)
--- NOTE | 2020-10-12 11:45 | MHC.CM.PN ---
Patient has Advanced Dementia; CM was unable to reach HCP/Juanjo. CM spoke with [facility] Carroll Moeller. The goal for dc is STR into likely LTC at [facility]. IMM will be mailed certified letter to HCP/Juanjo.
[2020-10-12] MEDS: Thiamine HCL 200 MG in 0.9 % Sodium Chloride 100 ML 204 MG IV ×2 (11:49→18:25)
[2020-10-12] MEDS: Albumin Human 25 % 50 ML 100 ML IV (14:29)
--- NOTE | 2020-10-12 16:06 | P.PNIM_ITS ---
Subjective Subjective Date of Service: 10/12/20 Interval History: CHF excerebation Review of Systems Shortness of breath slowly improving, denies any chest pain or abdominal pain or fever chills Physical Exam Vital Signs: Vital Signs: Last Vital Signs Temp 98.2 F 10/12/20 12:00 Pulse 94 10/12/20 12:00 Resp 18 10/12/20 12:00 BP 160/84 H 10/12/20 12:00 Pulse Ox 97 10/12/20 12:00 Body Mass Index 39.4 Physical exam Constitutional: Not in acute distress Cvs: rrr, [id number] , no murmur res: Closely fair air entry, no rales or wheezing. abd: no rebound or guarding ,nt, bs present. ext pulses present , no cyanosis , 1+ edema neuro: axo3 , nonfocal. Objective Data Current Medications Generic Name Dose Route Start Last Admin Trade Name Freq PRN Reason Stop Dose Admin Acetaminophen 650 mg 10/11/20 06:14 10/11/20 17:13 Acetaminophen 325 Mg Tablet PO 650 mg Q6H PRN Administration Pain Acetaminophen 650 mg 10/11/20 10:32 Acetaminophen Supp 650 Mg Supp.Rect ND Q6H PRN Pain, Mild (Pain Scale 1-3) Albuterol Sulfate 2 puff 10/11/20 01:54 10/11/20 02:26 Albuterol Sulfate 90 Mcg 8 Gm Inhaler INHALE 2 puff Q4H PRN Administration Shortness Of Breath Or Wheezing Albuterol/Ipratropium 3 ml 10/11/20 08:00 10/12/20 15:32 Albuterol/Iprat 2.5/0.5mg 3 Ml Ampul.Neb INHALE 3 ml RQID YUMIKO Administration Aspirin 81 mg 10/11/20 21:00 10/11/20 21:15 Aspirin Enteric Coated 81 Mg Tablet. PO 81 mg BEDTIME YUMIKO Administration Baclofen 20 mg 10/11/20 09:00 10/12/20 09:46 Baclofen 20 Mg Tablet PO 20 mg DAILY YUMIKO Administration Clonazepam 1 mg 10/11/20 02:00 10/12/20 09:35 Clonazepam 1 Mg Tablet PO 1 mg BID YUMIKO Administration Escitalopram Oxalate 20 mg 10/11/20 09:00 10/12/20 09:46 Escitalopram Oxalate 20 Mg Tablet PO 20 mg DAILY YUMIKO Administration Fluticasone Propionate 1 puff 10/11/20 08:00 10/12/20 12:00 Fluticasone Propionate 250 Mcg Blst.W.Dev INHALE Not Given RBID [facility] Folic Acid 1 mg 10/11/20 09:00 10/12/20 09:46 Folic Acid 1 Mg Tablet PO 1 mg DAILY YUMIKO Administration Folic Acid 1 mg 10/12/20 09:00 10/12/20 09:47 Folic Acid 1 Mg Tablet PO Not Given DAILY [facility] Heparin Sodium (Porcine) 5,000 unit 10/11/20 13:00 10/12/20 14:29 Heparin Sodium,Porcine 5,000 Unit/Ml Vial SUBCUT 5,000 unit Q12H [facility] Administration Thiamine HCl 200 mg/ Sodium 102 mls @ 204 mls/hr 10/12/20 09:00 10/12/20 13:21 Chloride IV Infused Q8H YUMIKO Infusion Insulin Human Lispro 0 unit 10/11/20 07:30 10/12/20 13:04 Insulin Lispro 100 Unit/Ml 3 Ml Vial SUBCUT 2 unit QIDACHS [facility] Administration Protocol Methylprednisolone Sodium Succinate 40 mg 10/11/20 10:32 10/12/20 09:45 Methylprednisolone Sod Succ/Pf 40 Mg/Ml Vial IVPUSH 40 mg Q8H [facility] Administration Metoprolol Succinate 25 mg 10/11/20 09:00 10/12/20 09:46 Metoprolol Succinate Er 25 Mg Tab.Er.24h PO 25 mg DAILY YUMIKO Administration Protocol Montelukast Sodium 10 mg 10/11/20 09:00 10/12/20 09:46 Montelukast Sodium 10 Mg Tablet PO 10 mg DAILY YUMIKO Administration Morphine Sulfate 2 mg 10/11/20 21:01 10/11/20 21:18 Morphine Sulfate 2 Mg/Ml Cartridge IVPUSH 2 mg Q6H PRN Administration Pain, Mild (Pain Scale 1-3) Ondansetron HCl 4 mg 10/11/20 10:32 Ondansetron Hcl 4 Mg/2 Ml Vial IVPUSH Q8H PRN Nausea and Vomiting Pharmacy Consult 1 each 10/10/20 15:10 Consult Rx Perform Med Rec MISCELLANE ONCE PRN Consult order Pravastatin Sodium 20 mg 10/11/20 02:00 10/11/20 21:15 Pravastatin Sodium 20 Mg Tablet PO 20 mg BEDTIME YUMIKO Administration Quetiapine Fumarate 50 mg 01/15/21 02:00 10/12/20 09:46 Quetiapine Fumarate 50 Mg Tablet PO 50 mg BID YUMIKO Administration Senna 8.6 mg 10/11/20 09:00 10/12/20 09:48 Sennosides 8.6 Mg Tablet PO 8.6 mg BID YUMIKO Administration Sodium Chloride 3 ml 10/11/20 16:00 10/12/20 15:45 0.9 % Sodium Chloride Flush 3 Ml Syringe IVFLUSH 3 ml QSHIFT YUMIKO Administration Labs CBC & Chem 7: 10/12/20 06:40 10/12/20 06:40 Assessment and Plan (1) CHF exacerbation: Status: Acute (2) Hypoxia: Status: Acute (3) Alcohol use disorder: Status: Acute (4) Altered mental status: Status: Resolved (5) Acute UTI: Status: Resolved (6) Acute metabolic encephalopathy: Status: Resolved (7) Toxic encephalopathy: Status: Resolved (8) Acute hyponatremia: Status: Resolved Assessment and Plan: A 65-year-old female who is admitted with 65-year-old woman who is being admitted with acute congestive heart failure exacerbation and chronic obstructive pulmonary disease exacerbation. 1. Congestive heart failure etiology unclear Echo pending Started on IV Lasix, Diuresing well i/o:2000/4,500 daily weights bnp improving from [id number] echo: pending cardiology consultation noted 2. Chronic obstructive pulmonary disease exacerbation. Solu-Medrol, DuoNebs, continue supplemental oxygen. 3. Diabetes mellitus. Controlled-continue Sliding scale, ADA diet. 4. History of coronary artery disease. Continue beta suzette, aspirin and statin. 5. Bipolar disorder. Continue Seroquel. 6. Alcohol abuse. Place on CIWA scale. Monitor for any signs of withdrawal. Continue folic acid, thiamine. 7. Deep vein thrombosis prophylaxis with heparin. 8. Case discussed with Dr. Patiño. 9. Full code. (9) SAGAR (acute kidney injury): Status: Resolved (10) Hyponatremia: Status: Resolved (11) Wernicke encephalopathy: Status: Acute
[2020-10-12 17:45] LABS: Glucose, Whole Blood 218 mg/dL (60-115)
[2020-10-12] MEDS: Omeprazole 20 MG CAPSULE.DR PO (17:45)
--- NOTE | 2020-10-12 19:23 | CA_ITS ---
Transthoracic Echocardiogram Patient (Last, First, Middle): Belia Richardson, Gender: Female Date of : 1955 Age: 65 Procedure Date: 10/12/2020 Procedure Type: Transthoracic Echocardiogram Location: [facility] [place] Height: 160.02 cm Weight: 100.7 kg BSA: 2.02 m2 Heart Rate: bpm BP: 165 / 90 mmHg Drug Safety Specialist: JAGUAR Rudolph MD: Adelaide Patiño MD Pit Manager: Lukasz Anthony MD Symptoms: chf Study Quality: Fair/Contrast ECG Rhythm: Sinus Conclusions: - 1. Normal LV systolic function with pseudonormal filling pattern 2. Mild aortic regurgitation 3. Mildly elevated right ventricular systolic pressure 4. Trivial pericardial effusion Findings Procedure Information Contrast agent, definity, is being given per protocol without apparent complications. Left Ventricle Normal left ventricular cavity size. There is normal left ventricular wall thickness. The left ventricular systolic function is low normal. The visually estimated ejection fraction is between 50-55%. Spectral Doppler is indicative of a pseudonormal filling pattern. E/E prime ratio is between 8 and 15 consistent with indeterminate filling pressures. Right Ventricle Normal right ventricular cavity size and systolic function. Atria The left atrium is likely dilated. Interatrial shunt cannot be excluded. The right atrium is normal in size. Aortic Valve The aortic valve was not well visualized. There is mild calcification of the aortic valve. There is no aortic valve stenosis. There is mild aortic valve regurgitation. Mitral Valve There is mild anterior and posterior mitral leaflet thickening. There is mild mitral annular calcification. There is trace mitral valve regurgitation. There is no mitral valve stenosis. Pulmonic Valve The pulmonic valve was not well visualized. Tricuspid Valve Likely normal tricuspid valve structure and function. There is mild tricuspid valve regurgitation. Mild pulmonary hypertension is present. Great Vessels All visible segments of the aorta are normal in size. The pulmonary artery was not well visualized. Venous The inferior vena cava is normal in size and collapses less than 50% with inspiration. Pericardium/Pleural There is a trivial loculated pericardial effusion overlying the left ventricle. Measurements 2D Linear Measurements IVSd: 0.97 0.6-0.9/0.6-1.0 cm LVIDd: 5.54 3.9-5.3/4.2-5.9 cm LVIDd Index: 2.74 2.4-3.2/2.2-3.1 cm/m2 LVIDs: 4.19 2.0-3.6 cm LVPWd: 0.98 0.7-1.1 cm Ao Root: 3.10 2.1-3.5 cm LA Diam: 4.00 2.7-3.8/3.0-4.0 cm LAIDs Index: 1.98 1.5-2.3 cm/m2 LV Mass: 259.81 67-162/88-224 g LV Mass Index: 128.62 43-95/49-115 g/m2 LVOT Diam: 2.10 3.0+(-)1.3 cm 2D Systolic Function EF 4C: 52.10 >55% EF 2C: 51.60 >55% EF BiP: 53.20 >55% Mitral Valve MV Pk E: 0.99 MV PK A: 0.88 MV Decel Time: 185.00 E/A: 1.10 E'Lateral: 6.09 E'Medial: 4.79 E/E' Med: 20.70 E/E' Lat: 16.30 PHT: 54.00 MVA PHT: 4.07 Decel Churchill: 5.35 Aortic Valve AoV Pk Brien: 1.72 AoV Mn Brien: 1.20 AoV VTI: 0.34 AoV Pk Grad: 12.00 Aov Mn Grad: 6.00 JOSLYN Cont.VTI: 2.38 LVOT LVOT Pk Brien: 1.18 LVOT Mn Brien: 0.84 LVOT VTI: 0.24 LVOT Pk Grad: 6.00 LVOT Mn Grad: 3.00 LVOT Diam: 2.10 LVOT Area: 3.46 Diastolic Function MV Pk E: 0.99 MV Pk A: 0.88 E/A: 1.10 E'Medial: 4.79 E/E' Med: 20.70 E' Laterial: 6.09 E/E' Lat: 16.30 Tricuspid Valve TR Pk Brien: 2.90 TR Pk Grad: 34.00 RA Press: 8.00 RVSP: 42.00 Great Vessels Aorta Ao Root-2D: 3.10 2.0-3.7 cm Ao Asc: 4.00 2.1-3.4 cm Updated in Other Vendor System with Status of Final Lukasz Anthony MD electronically signed on 10/12/2020 12:48:50 PM with status of Final
[2020-10-12 20:06] LABS: Glucose, Whole Blood 136 mg/dL (60-115)
[2020-10-12] MEDS: Aspirin Enteric Coated 81 MG TABLET.DR PO (20:11)
[2020-10-12] MEDS: Pravastatin Sodium 20 MG TABLET PO (20:11)
[2020-10-13] VITALS (12 sets, daily range): BP systolic 135–162; BP diastolic 64–97; PULSE 71–86; RESP 18–20; TEMP 36.3–37.1; O2SAT 94–100
[2020-10-13] MEDS: Thiamine HCL 200 MG in 0.9 % Sodium Chloride 100 ML 204 MG IV ×3 (02:30→17:51)
[2020-10-13] MEDS: Heparin Sodium,Porcine 5,000 UNIT/ML VIAL 5000 UNIT SUBCUT ×2 (02:30→14:21)
[2020-10-13] MEDS: Omeprazole 20 MG CAPSULE.DR PO (05:46)
[2020-10-13 07:30] LABS: Glucose, Whole Blood 105 mg/dL (60-115)
[2020-10-13 07:52] LABS: Anion Gap 17 (12-20); Blood Urea Nitrogen 49 mg/dL (9-16); Calcium 8.4 mg/dL (8.4-10.2); Carbon Dioxide 24 mmol/L (22-29); Chloride 100 mmol/L (96-108); Creatinine Clr Calc Pharmacy 35.4; Estimated Glomerular Filt Rate 29; Glucose Random 100 mg/dL (60-115); Sodium 137 mmol/L (135-145)
[2020-10-13] MEDS: Albuterol/Iprat 2.5/0.5MG 3 ML AMPUL.NEB INHALE ×4 (08:19→21:37)
[2020-10-13] MEDS: predniSONE 20 MG TABLET PO (08:30)
[2020-10-13] MEDS: Montelukast Sodium 10 MG TABLET PO (08:39)
[2020-10-13] MEDS: QUEtiapine Fumarate 50 MG TABLET PO ×2 (08:40→20:30)
[2020-10-13] MEDS: Sennosides 8.6 MG TABLET PO ×2 (08:40→20:30)
[2020-10-13] MEDS: Baclofen 20 MG TABLET PO (08:40)
[2020-10-13] MEDS: Escitalopram Oxalate 20 MG TABLET PO (08:40)
[2020-10-13] MEDS: clonazePAM 1 MG TABLET PO ×2 (08:40→20:31)
[2020-10-13] MEDS: Metoprolol Succinate ER 25 MG TAB.ER.24H PO (08:41)
[2020-10-13] MEDS: 0.9 % Sodium Chloride Flush 3 ML SYRINGE IVFLUSH ×3 (08:48→20:31)
[2020-10-13] MEDS: Folic Acid 1 MG TABLET PO (08:49)
[2020-10-13 11:28] LABS: Glucose, Whole Blood 148 mg/dL (60-115)
--- NOTE | 2020-10-13 14:10 | HO.PM.IMPN ---
Subjective Subjective Date of Service: 10/13/20 Interval History: chf /sagar Review of Systems Shortness of breath seems improved Denies any abdominal pain or fever or chills Physical Exam Vital Signs: Vital Signs: Last Vital Signs Temp 98.0 F 10/13/20 10:53 Pulse 77 10/13/20 12:19 Resp 18 10/13/20 10:53 BP 159/83 H 10/13/20 10:53 Pulse Ox 98 10/13/20 10:53 Body Mass Index 39.4 Constitutional: Not in acute distress Cvs: rrr, [id number] , no murmur res: Closely fair air entry, no rales or wheezing. abd: no rebound or guarding ,nt, bs present. ext pulses present , no cyanosis , 1+ edema neuro: seems more alert, nonfocal. Objective Data Current Medications Generic Name Dose Route Start Last Admin Trade Name Freq PRN Reason Stop Dose Admin Acetaminophen 650 mg 10/11/20 06:14 10/11/20 17:13 Acetaminophen 325 Mg Tablet PO 650 mg Q6H PRN Administration Pain Acetaminophen 650 mg 10/11/20 10:32 Acetaminophen Supp 650 Mg Supp.Rect MT Q6H PRN Pain, Mild (Pain Scale 1-3) Albuterol Sulfate 2 puff 10/11/20 01:54 10/11/20 02:26 Albuterol Sulfate 90 Mcg 8 Gm Inhaler INHALE 2 puff Q4H PRN Administration Shortness Of Breath Or Wheezing Albuterol/Ipratropium 3 ml 10/11/20 08:00 10/13/20 12:18 Albuterol/Iprat 2.5/0.5mg 3 Ml Ampul.Neb INHALE 3 ml RQID YUMIKO Administration Aspirin 81 mg 10/11/20 21:00 10/12/20 20:11 Aspirin Enteric Coated 81 Mg Tablet.Dr PO 81 mg BEDTIME YUMIKO Administration Baclofen 20 mg 10/11/20 09:00 10/13/20 08:40 Baclofen 20 Mg Tablet PO 20 mg DAILY YUMIKO Administration Clonazepam 1 mg 10/11/20 02:00 10/13/20 08:40 Clonazepam 1 Mg Tablet PO 1 mg BID YUMIKO Administration Escitalopram Oxalate 20 mg 10/11/20 09:00 10/13/20 08:40 Escitalopram Oxalate 20 Mg Tablet PO 20 mg DAILY YUMIKO Administration Fluticasone Propionate 1 puff 10/11/20 08:00 10/12/20 20:40 Fluticasone Propionate 250 Mcg Blst.W.Dev INHALE Not Given RBID [facility] Folic Acid 1 mg 10/11/20 09:00 10/13/20 08:41 Folic Acid 1 Mg Tablet PO Not Given DAILY [facility] Folic Acid 1 mg 10/12/20 09:00 10/13/20 08:49 Folic Acid 1 Mg Tablet PO 1 mg DAILY [facility] Administration Heparin Sodium (Porcine) 5,000 unit 10/11/20 13:00 10/13/20 02:30 Heparin Sodium,Porcine 5,000 Unit/Ml Vial SUBCUT 5,000 unit Q12H [facility] Administration Thiamine HCl 200 mg/ Sodium 102 mls @ 204 mls/hr 10/12/20 09:00 10/13/20 11:01 Chloride IV Infused Q8H [facility] Infusion Insulin Human Lispro 0 unit 10/11/20 07:30 10/13/20 12:40 Insulin Lispro 100 Unit/Ml 3 Ml Vial SUBCUT Not Given QIDACHS [facility] Protocol Metoprolol Succinate 25 mg 10/11/20 09:00 10/13/20 08:41 Metoprolol Succinate Er 25 Mg Tab.Er.24h PO 25 mg DAILY [facility] Administration Protocol Montelukast Sodium 10 mg 10/11/20 09:00 10/13/20 08:39 Montelukast Sodium 10 Mg Tablet PO 10 mg DAILY [facility] Administration Morphine Sulfate 2 mg 10/11/20 21:01 10/11/20 21:18 Morphine Sulfate 2 Mg/Ml Cartridge IVPUSH 2 mg Q6H PRN Administration Pain, Mild (Pain Scale 1-3) Omeprazole 20 mg 10/12/20 16:15 10/13/20 05:46 Omeprazole 20 Mg Capsule.Dr PO 20 mg DAILY@0630 [facility] Administration Ondansetron HCl 4 mg 10/11/20 10:32 Ondansetron Hcl 4 Mg/2 Ml Vial IVPUSH Q8H PRN Nausea and Vomiting Pharmacy Consult 1 each 10/10/20 15:10 Consult Rx Perform Med Rec MISCELLANE ONCE PRN Consult order Pravastatin Sodium 20 mg 10/11/20 02:00 10/12/20 20:11 Pravastatin Sodium 20 Mg Tablet PO 20 mg BEDTIME [facility] Administration Prednisone 20 mg 10/13/20 09:00 10/13/20 08:30 Prednisone 20 Mg Tablet PO 20 mg DAILY YUMIKO Administration Quetiapine Fumarate 50 mg 10/11/20 02:00 10/13/20 08:40 Quetiapine Fumarate 50 Mg Tablet PO 50 mg BID YUMIKO Administration Senna 8.6 mg 10/11/20 09:00 10/13/20 08:40 Sennosides 8.6 Mg Tablet PO 8.6 mg BID YUMIKO Administration Sodium Chloride 3 ml 10/11/20 16:00 10/13/20 08:48 0.9 % Sodium Chloride Flush 3 Ml Syringe IVFLUSH 3 ml QSHIFT YUMIKO Administration Labs CBC & Chem 7: 10/12/20 06:40 10/13/20 05:45 Assessment and Plan (1) CHF exacerbation: Status: Acute (2) Hypoxia: Status: Acute (3) Wernicke encephalopathy: Status: Acute (4) Alcohol use disorder: Status: Acute (5) Altered mental status: Status: Resolved (6) Acute UTI: Status: Resolved (7) Acute metabolic encephalopathy: Status: Resolved (8) Toxic encephalopathy: Status: Resolved (9) Acute hyponatremia: Status: Resolved Assessment and Plan: A 65-year-old female who is admitted with 65-year-old woman who is being admitted with acute congestive heart failure exacerbation and chronic obstructive pulmonary disease exacerbation. 1. Congestive heart failure etiology unclear -systolic vs diastolic. received on IV Lasix, Diuresing well i/o:3400/7.8 liters daily weights bnp improving from [id number] echo:ejection fraction is between 50-55% cardiology consultation: Patient diuresed well with IV Lasix with hold off lasix since patient has mild SAGAR and shortness of breath improved. Patient will need outpatient cardiology follow-up. sagar: hold lasix Will add Nephro evaluation since patient is developed sagar. 2. Chronic obstructive pulmonary disease exacerbation. Solu-Medrol, DuoNebs, continue supplemental oxygen. 3. Diabetes mellitus.fs 140-180 range Controlled-continue Sliding scale, ADA diet. 4. History of coronary artery disease. Continue beta suzette, aspirin and statin. 5. Bipolar disorder. Continue Seroquel. 6. Alcohol abuse. Place on CIWA scale. Monitor for any signs of withdrawal. Continue folic acid,on iv thiamine. (10) SAGAR (acute kidney injury): Status: Resolved (11) Hyponatremia: Status: Resolved
[2020-10-13 16:16] LABS: Glucose, Whole Blood 250 mg/dL (60-115)
[2020-10-13] MEDS: Insulin Lispro 100 UNIT/ML 3 ML VIAL SUBCUT ×2 (17:03→20:40)
[2020-10-13] MEDS: Acetaminophen 325 MG TABLET 650 MG PO (17:56)
[2020-10-13 19:43] LABS: Glucose, Whole Blood 82 mg/dL (60-115)
--- NOTE | 2020-10-13 20:18 | P.EN_ITS ---
Event Note Date of Service: 10/13/20 Event Note: Patient seen and examined D/w Dr. Patiño 1. SAGAR in the setting of CHF and Overduresis 2. CKD stage 3 at baseline in [place] setting of DM/ HTN/ ? [place] use - Pt has Bipolar disorder 3. CHF - Good response to IV lasix Check UA Urine lytes/ Cr Continue to hold Lasix - Need to decide on out pt dose Low Na diet Fluid restriction No TRIPP / ARB Full consult dictated thx Will follow
[2020-10-13] MEDS: Aspirin Enteric Coated 81 MG TABLET.DR PO (20:31)
[2020-10-13] MEDS: Pravastatin Sodium 20 MG TABLET PO (20:31)
[2020-10-13 20:40] LABS: Glucose, Whole Blood 167 mg/dL (60-115)
[2020-10-14] VITALS (9 sets, daily range): BP systolic 124–159; BP diastolic 58–92; PULSE 76–84; RESP 18–20; TEMP 36.3–36.9; O2SAT 95–100; BMI 39.4
[2020-10-14 01:05] LABS: Glucose Urine UA NEG (NEG); Leukocyte Esterase Urine TRACE (NEG); Nitrite Urine NEG (NEG); PH 5.5 (5.0-8.0); Specific Gravity - Urine 1.015 (1.005-1.025); Urine Blood 3+ (NEG); Urine Ketones NEG (NEG); Urine Protein NEG (NEG-TRACE)
[2020-10-14 01:06] LABS: Appearance Urine CLEAR; Color Urine YELLOW
[2020-10-14] MEDS: Heparin Sodium,Porcine 5,000 UNIT/ML VIAL 5000 UNIT SUBCUT ×2 (01:09→15:54)
[2020-10-14] MEDS: Thiamine HCL 200 MG in 0.9 % Sodium Chloride 100 ML 204 MG IV ×3 (01:09→17:48)
[2020-10-14 01:13] LABS: Bacteria Urine 1+ /LPF; Mucus Urine 2+ /LPF; Squamous Epithelial Cell Urine 2+ /LPF
[2020-10-14 01:33] LABS: Creatinine Urine 35.99 mg/dL
[2020-10-14 01:35] LABS: Total Protein Urine Random 16 mg/dL (<12)
[2020-10-14] MEDS: Omeprazole 20 MG CAPSULE.DR PO (06:57)
[2020-10-14 07:07] LABS: Anion Gap 14 (12-20); Blood Urea Nitrogen 56 mg/dL (9-16); Calcium 8.1 mg/dL (8.4-10.2); Carbon Dioxide 26 mmol/L (22-29); Chloride 102 mmol/L (96-108); Creatinine Clr Calc Pharmacy 37.7; Estimated Glomerular Filt Rate 31; Glucose Random 67 mg/dL (60-115); Potassium 4.4 mmol/l (3.3-5.1); Sodium 138 mmol/L (135-145)
[2020-10-14] MEDS: Albuterol/Iprat 2.5/0.5MG 3 ML AMPUL.NEB INHALE ×4 (07:24→20:04)
[2020-10-14] MEDS: Fluticasone Propionate 250 MCG BLST.W.DEV 1 PUFF INHALE (07:38)
[2020-10-14 07:42] LABS: Glucose, Whole Blood 79 mg/dL (60-115)
[2020-10-14] MEDS: Baclofen 20 MG TABLET PO (08:12)
[2020-10-14] MEDS: clonazePAM 1 MG TABLET PO ×2 (08:12→21:31)
[2020-10-14] MEDS: Folic Acid 1 MG TABLET PO (08:12)
[2020-10-14] MEDS: Escitalopram Oxalate 20 MG TABLET PO (08:12)
[2020-10-14] MEDS: Sennosides 8.6 MG TABLET PO ×2 (08:12→21:31)
[2020-10-14] MEDS: 0.9 % Sodium Chloride Flush 3 ML SYRINGE IVFLUSH ×2 (08:12→15:54)
[2020-10-14] MEDS: QUEtiapine Fumarate 50 MG TABLET PO ×2 (08:13→21:31)
[2020-10-14] MEDS: Montelukast Sodium 10 MG TABLET PO (08:13)
[2020-10-14] MEDS: Metoprolol Succinate ER 25 MG TAB.ER.24H PO (08:13)
[2020-10-14 11:05] LABS: Glucose, Whole Blood 97 mg/dL (60-115)
--- NOTE | 2020-10-14 11:11 | MHC.CM.PN ---
Patient is on IV Dexamethasone day 01/04 for COVID +, on room air. ID needs to eval prior to discharge. Discharge plan is home no services. S.O. will provide transportation. CM will continue to follow patient for discharge needs.
--- NOTE | 2020-10-14 11:15 | MHC.CM.PN ---
Patient is on IV Thiamine and IV MS, PT recommending STR. Discharge plan is [facility] [place] and possible LTC. Patient will need BLS for transportation. CM will continue to follow patient for discharge needs.
--- NOTE | 2020-10-14 11:32 | PM.PNNEP ---
Subjective Subjective Date of Service: 10/15/20 Principal diagnosis: CHF, chest pain Interval history: chf /sagar Physical Exam Vital Signs: Vital Signs: Last Vital Signs Temp 98.2 F 10/14/20 11:13 Pulse 82 10/14/20 11:13 Resp 18 10/14/20 11:13 BP 158/84 H 10/14/20 11:13 Pulse Ox 97 10/14/20 11:13 Body Mass Index 39.4 Const: General: cooperative Neck: Neck: Yes no JVD Resp: Auscultation: crackles Cardio: Heart sounds: no rubs GI: Auscultation: normal bowel sounds Neuro: Motor exam (neuro): no asterixis Objective Data Labs CBC & Chem 7: 10/12/20 06:40 10/15/20 05:25 Labs: Laboratory Results - last 24 hr 10/13/20 10/13/20 10/13/20 16:10 19:37 20:36 Sodium Potassium Chloride Carbon Dioxide Anion Gap BUN Creatinine Estim Creat Clear Calc Estimated GFR POC Glucose 250 H 82 167 H Random Glucose Calcium Urine Color Urine Appearance Urine pH Ur Specific [place] Urine Protein Urine Glucose (UA) Urine Ketones Urine Blood Urine Nitrite Ur Leukocyte Esterase Urine RBC Urine WBC Ur Squamous Epith Cells Urine Bacteria Urine Mucus U Random Total Protein Ur Random Sodium Urine Creatinine 10/13/20 10/13/20 10/13/20 23:56 23:56 23:56 Sodium Potassium Chloride Carbon Dioxide Anion Gap BUN Creatinine Estim Creat Clear Calc Estimated GFR POC Glucose Random Glucose Calcium Urine Color YELLOW Urine Appearance CLEAR Urine pH 5.5 Ur Specific [place] 1.015 Urine Protein NEG Urine Glucose (UA) NEG Urine Ketones NEG Urine Blood 3+ H Urine Nitrite NEG Ur Leukocyte Esterase TRACE H Urine RBC 10-14 H Urine WBC 10-14 H Ur Squamous Epith Cells 2+ Urine Bacteria 1+ Urine Mucus 2+ U Random Total Protein 16 H Ur Random Sodium 30.0 Urine Creatinine 35.99 10/13/20 10/14/20 10/14/20 23:56 05:25 07:09 Sodium 138 Potassium 4.4 Chloride 102 Carbon Dioxide 26 Anion Gap 14 BUN 56 H Creatinine 1.64 H Estim Creat Clear Calc 37.7 Estimated GFR 31 POC Glucose 79 Random Glucose 67 Calcium 8.1 L Urine Color Urine Appearance Urine pH Ur Specific [place] Urine Protein Urine Glucose (UA) Urine Ketones Urine Blood Urine Nitrite Ur Leukocyte Esterase Urine RBC Urine WBC Ur Squamous Epith Cells Urine Bacteria Urine Mucus U Random Total Protein Ur Random Sodium Urine Creatinine Cancelled 10/14/20 10:57 Sodium Potassium Chloride Carbon Dioxide Anion Gap BUN Creatinine Estim Creat Clear Calc Estimated GFR POC Glucose 97 Random Glucose Calcium Urine Color Urine Appearance Urine pH Ur Specific [place] Urine Protein Urine Glucose (UA) Urine Ketones Urine Blood Urine Nitrite Ur Leukocyte Esterase Urine RBC Urine WBC Ur Squamous Epith Cells Urine Bacteria Urine Mucus U Random Total Protein Ur Random Sodium Urine Creatinine Assessment & Plan Assessment and plan (1) SAGAR (acute kidney injury): Problem details: AK superimposed on CKD SAGAR due to altered hemodynamics diuresing well Keep O > I Hold diuretic today and reassess Status: Acute Time Spent With Patient Time: Total time spent is greater than 50% in coordination of care (as documented) at patient's floor/unit and/or counseling patient:
--- NOTE | 2020-10-14 12:58 | CONS_ITS ---
DATE OF SERVICE: 10/13/2020 REASON FOR CONSULTATION: Consult requested by Dr. Patiño to evaluate and help in management of patient with renal insufficiency. HISTORY OF PRESENT ILLNESS: The patient is a 65-year-old female with past medical history of longstanding diabetes, history of hypertension, history of bipolar disorder, who presented to the hospital, complains of generalized body ache and pain. She was apparently discharged home from a nursing facility. The patient was admitted to the hospital in August when she had acute kidney injury with a creatinine increasing from around 1.0 to max of 3.4. She was seen by my associates during that hospitalization. She has had some behavioral and aggressive behavior issues. The patient during this admission was noted to have congestive heart failure and was treated with IV Lasix and a Dudley catheter was placed. She had made good amount of urine. She does have history of dementia, schizophrenia, and bipolar disorder based on history. She is not a good historian. Most of the history was obtained from the patient's medical record. Her COVID testing was negative. BNP was initially abnormal. She was also given Haldol during the hospitalization. She has history of COPD and was treated for COPD as well. Her creatinine on admission was 1.34, which increased to 1.75 today and hence Renal consultation has been requested. Her IV Lasix has been discontinued. PAST MEDICAL HISTORY: History of COPD; coronary artery disease, status post TX; history of diabetes type 2; hypertension; osteoarthritis; psych disorder including schizophrenia, bipolar disorder, dementia; appendectomy; history of respiratory failure, for which she required trach and feeding tube in the past. She has history of mild CKD stage 2 at baseline. She had recent episodes of acute kidney injury. FAMILY HISTORY: Sister has a history of breast CA. PERSONAL AND SOCIAL HISTORY: It is unclear if the patient smokes or drink. ALLERGIES: THE PATIENT IS ALLERGIC TO ADVAIR AND PAXIL. MEDICATIONS: Include Tylenol, albuterol, aspirin, baclofen, citalopram, clonazepam, Flovent, folic acid, insulin, ipratropium, metoprolol, montelukast, pravastatin, Seroquel, sennoside, and thiamine. REVIEW OF SYSTEMS: Difficult to obtain because of the patient's oral condition. PHYSICAL EXAMINATION: GENERAL: The patient is resting in the bed, awake, able to follow simple commands. VITAL SIGNS: Blood pressure is 159/83, pulse 77, afebrile. HEENT: Shows pupils equal, round, and reactive bilaterally to light. No jugular venous distention is noted. NECK: Supple. Mucosa membrane moist. There is no scleral icterus or conjunctival congestion. CARDIOVASCULAR SYSTEM: S1, S2 without rub. RESPIRATORY SYSTEM: Mild decrease in the bases. ABDOMEN: Soft, obese. Bowel sounds normal. EXTREMITIES: Showed chronic changes, 1+ edema. LABORATORY DATA: Done today. Sodium 137, potassium 4.0, chloride 100, CO2 of 24, BUN 49, creatinine 1.75. GFR was 29, glucose 100, calcium 8.4, INR 0.9. Hemoglobin was 10.7, hematocrit 30.2, platelets were 290. Urinalysis shows specific gravity 1.020, protein 1+, glucose negative, ketone 5, blood 3+, rbc's were 76 to 150, wbc's were 0. IMPRESSION: 1. Elderly female with acute kidney injury. The patient likely has renal hypoperfusion in setting of congestive heart failure. She was diuresed aggressively with IV Lasix and passed about 7.8 L of urine likely has over diuresis. Diuresis is presently placed on hold. She does not have pyuria. I doubt patient has acute interstitial nephritis but has hematuria and we need to workup for glomerulonephritis if renal function does not improve. She is also to check a renal ultrasound if her renal function continues to worsen after she comes off Lasix. 2. Chronic kidney disease stage 2 at baseline with recent episode of acute kidney injury with creatinine during last admission peaking around 3.4, likely reason for chronic kidney disease in the patient likely secondary long-term diabetes. With diabetes/hypertensive renal disease, she has history of bipolar disorder and unclear if she has been on lithium. She has also had acute kidney injury and might have nephron loss in the setting of acute kidney injury. 3. Congestive heart failure, which is improved. 4. Chronic obstructive pulmonary disease . 5. Diabetes. 6. Hypertension. RECOMMENDATION: At this juncture, I have taken the liberty to repeat her urinalysis. I have also ordered a spot urine for electrolytes, protein, creatinine. I agree with holding off on Lasix. She would need a small dose of loop diuretic before she gets discharged to prevent further episodes of CHF, but we can decide on that in future before discharge. I would avoid using TRIPP inhibitor, angiotensin receptor suzette, but if she has proteinuria, she needs to be started on TRIPP inhibitor or ARB as an outpatient. We will continue to follow the patient closely. Thank you for allowing me to participate in medical management of patient. MD VICTORINO Dickey/DERRELL / [phone]
--- NOTE | 2020-10-14 14:20 | MHC.CM.PN ---
CM CALLED PTS /HCP, MIKO ([phone]) WHO REPORTS HE IS WORRIED BECAUSE THE PTS JIG AND FIXTURE REPAIRER TOLD HIM SHE SHOULD GO TO A PRISON FOREVER AND HE DOES NOT WANT HER TO. HE REPORTS HE KNOWS SHE IS NOT WELL ENOUGH TO RETURN HOME AT THIS TIME BUT HE WOULD LIKE HER TO AFTER REHAB. HE ALSO REPORTS THE LAST TIME PT WENT TO [facility], THEY SENT HER TO [place] WHICH WAS TOO FAR FOR HIM. KAMILA INFORMED HIM THAT ALEXANDRA IN [place] AND SACHIN IN [place] WERE CURRENTLY FOLLOWING. HE REPORTS HE WOULD PREFER THE PT GO TO [place] SINCE IT IS CLOSER. MIKO WAS ASSURED HE WOULD BE CONTACTED BEFORE THE PT WAS DISCHARGED AND THAT AN EFFORT WOULD BE MADE TO SEND PT TO [facility]. PTS REFERRAL WAS ALSO SENT TO [place] [facility] BASED ON DISCUSSION WITH HCP.
[2020-10-14] MEDS: Acetaminophen 325 MG TABLET 650 MG PO (15:53)
--- NOTE | 2020-10-14 16:17 | HO.PM.IMPN ---
Subjective Subjective Date of Service: 10/15/20 Interval History: chf excerebation, sagar on ckd Review of Systems Shortness of breath is improving Denies any chest pain or abdominal pain or nausea or vomiting Physical Exam Vital Signs: Vital Signs: Last Vital Signs Temp 97.6 F 10/14/20 15:37 Pulse 79 10/14/20 15:37 Resp 20 10/14/20 15:37 BP 137/72 10/14/20 15:37 Pulse Ox 98 10/14/20 15:37 Body Mass Index 39.4 Physical exam: Constitutional: Not in acute distress Cvs: rrr, [id number] , no murmur res: Fair air entry ,no rhonchii or wheezing abd: no rebound or guarding ,nt, bs present. ext pulses present , no cyanosis neuro, nonfocal. Objective Data Current Medications Generic Name Dose Route Start Last Admin Trade Name Freq PRN Reason Stop Dose Admin Acetaminophen 650 mg 10/11/20 06:14 10/14/20 15:53 Acetaminophen 325 Mg Tablet PO 650 mg Q6H PRN Administration Pain Acetaminophen 650 mg 10/11/20 10:32 Acetaminophen Supp 650 Mg Supp.Rect IA Q6H PRN Pain, Mild (Pain Scale 1-3) Albuterol Sulfate 2 puff 10/11/20 01:54 10/11/20 02:26 Albuterol Sulfate 90 Mcg 8 Gm Inhaler INHALE 2 puff Q4H PRN Administration Shortness Of Breath Or Wheezing Albuterol/Ipratropium 3 ml 10/11/20 08:00 10/14/20 15:02 Albuterol/Iprat 2.5/0.5mg 3 Ml Ampul.Neb INHALE 3 ml RQID YUMIKO Administration Aspirin 81 mg 10/11/20 21:00 10/13/20 20:31 Aspirin Enteric Coated 81 Mg Tablet. PO 81 mg BEDTIME YUMIKO Administration Baclofen 20 mg 10/11/20 09:00 10/14/20 08:12 Baclofen 20 Mg Tablet PO 20 mg DAILY YUMIKO Administration Clonazepam 1 mg 10/11/20 02:00 10/14/20 08:12 Clonazepam 1 Mg Tablet PO 1 mg BID YUMIKO Administration Escitalopram Oxalate 20 mg 10/11/20 09:00 10/14/20 08:12 Escitalopram Oxalate 20 Mg Tablet PO 20 mg DAILY YUMIKO Administration Fluticasone Propionate 1 puff 10/11/20 08:00 10/14/20 07:38 Fluticasone Propionate 250 Mcg Blst.W.Dev INHALE 1 puff RBID YUMIKO Administration Folic Acid 1 mg 10/12/20 09:00 10/14/20 08:12 Folic Acid 1 Mg Tablet PO 1 mg DAILY YUMIKO Administration Heparin Sodium (Porcine) 5,000 unit 10/11/20 13:00 10/14/20 15:54 Heparin Sodium,Porcine 5,000 Unit/Ml Vial SUBCUT 5,000 unit Q12H YUMIKO Administration Thiamine HCl 200 mg/ Sodium 102 mls @ 204 mls/hr 10/12/20 09:00 10/14/20 10:46 Chloride IV Infused Q8H YUMIKO Infusion Insulin Human Lispro 0 unit 10/11/20 07:30 10/14/20 11:54 Insulin Lispro 100 Unit/Ml 3 Ml Vial SUBCUT Not Given QIDACHS [facility] Protocol Metoprolol Succinate 25 mg 10/11/20 09:00 10/14/20 08:13 Metoprolol Succinate Er 25 Mg Tab.Er.24h PO 25 mg DAILY YUMIKO Administration Protocol Montelukast Sodium 10 mg 10/11/20 09:00 10/14/20 08:13 Montelukast Sodium 10 Mg Tablet PO 10 mg DAILY YUMIKO Administration Morphine Sulfate 2 mg 10/11/20 21:01 10/11/20 21:18 Morphine Sulfate 2 Mg/Ml Cartridge IVPUSH 2 mg Q6H PRN Administration Pain, Mild (Pain Scale 1-3) Omeprazole 20 mg 10/12/20 16:15 10/14/20 06:57 Omeprazole 20 Mg Capsule.Dr PO 20 mg DAILY@0630 YUMIKO Administration Ondansetron HCl 4 mg 10/11/20 10:32 Ondansetron Hcl 4 Mg/2 Ml Vial IVPUSH Q8H PRN Nausea and Vomiting Pharmacy Consult 1 each 10/10/20 15:10 Consult Rx Perform Med Rec MISCELLANE ONCE PRN Consult order Pravastatin Sodium 20 mg 10/11/20 02:00 10/13/20 20:31 Pravastatin Sodium 20 Mg Tablet PO 20 mg BEDTIME YUMIKO Administration Quetiapine Fumarate 50 mg 10/11/20 02:00 10/14/20 08:13 Quetiapine Fumarate 50 Mg Tablet PO 50 mg BID YUMIKO Administration Senna 8.6 mg 10/11/20 09:00 10/14/20 08:12 Sennosides 8.6 Mg Tablet PO 8.6 mg BID YUMIKO Administration Sodium Chloride 3 ml 10/11/20 16:00 10/14/20 15:54 0.9 % Sodium Chloride Flush 3 Ml Syringe IVFLUSH 3 ml QSHIFT YUMIKO Administration Labs CBC & Chem 7: 10/12/20 06:40 10/15/20 05:25 Assessment and Plan (1) SAGAR (acute kidney injury): Status: Acute (2) CHF exacerbation: Status: Acute (3) Hypoxia: Status: Acute (4) Wernicke encephalopathy: Status: Acute (5) Alcohol use disorder: Status: Acute (6) Altered mental status: Status: Resolved (7) Acute UTI: Status: Resolved (8) Acute metabolic encephalopathy: Status: Resolved (9) Toxic encephalopathy: Status: Resolved (10) Acute hyponatremia: Status: Resolved Assessment and Plan: A 65-year-old female who is admitted with 65-year-old woman who is being admitted with acute congestive heart failure exacerbation and chronic obstructive pulmonary disease exacerbation. 1. Congestive heart failure etiology unclear -systolic vs diastolic. received on IV Lasix, Diuresing well i/o:3400/7.8 liters daily weights bnp improving from 4604-4934 echo:ejection fraction is between 50-55% cardiology consultation: Patient diuresed well with IV Lasix intially -hold lasix: since patient has mild SAGAR and shortness of breath improved, still maintaining negative fluid balance 2.sagar: hold lasix Will add Nephro evaluation since patient is developed sagar. Discussed with Nephrology still maintaining negative I I&O or, hold off Lasix. 3. Chronic obstructive pulmonary disease exacerbation. Stable, Of steroids due to elevated BUN, DuoNebs, continue supplemental oxygen. 4. Diabetes mellitus.fs 140-180 range Controlled-continue Sliding scale, ADA diet. 5. History of coronary artery disease. Continue beta suzette, aspirin and statin. 6. Bipolar disorder. Continue Seroquel. 7. Alcohol abuse. Place on CIWA scale. Monitor for any signs of withdrawal. Continue folic acid,on iv thiamine. (11) SAGAR (acute kidney injury): Status: Resolved (12) Hyponatremia: Status: Resolved
[2020-10-14 16:18] LABS: Glucose, Whole Blood 112 mg/dL (60-115)
[2020-10-14 20:28] LABS: Glucose, Whole Blood 128 mg/dL (60-115)
[2020-10-14] MEDS: Aspirin Enteric Coated 81 MG TABLET.DR PO (21:31)
[2020-10-14] MEDS: Pravastatin Sodium 20 MG TABLET PO (21:31)
[2020-10-15] VITALS (11 sets, daily range): BP systolic 107–170; BP diastolic 60–86; PULSE 75–95; RESP 16–20; TEMP 36.2–37.1; O2SAT 94–100
[2020-10-15] MEDS: Thiamine HCL 200 MG in 0.9 % Sodium Chloride 100 ML IV (02:13)
[2020-10-15] MEDS: Heparin Sodium,Porcine 5,000 UNIT/ML VIAL 5000 UNIT SUBCUT ×2 (02:13→12:53)
[2020-10-15] MEDS: 0.9 % Sodium Chloride Flush 3 ML SYRINGE IVFLUSH ×3 (02:14→17:19)
[2020-10-15] MEDS: Omeprazole 20 MG CAPSULE.DR PO (06:16)
[2020-10-15 06:47] LABS: Anion Gap 14 (12-20); Blood Urea Nitrogen 65 mg/dL (9-16); Carbon Dioxide 24 mmol/L (22-29); Chloride 101 mmol/L (96-108); Creatinine Clr Calc Pharmacy 35.8; Estimated Glomerular Filt Rate 29; Glucose Random 118 mg/dL (60-115); Potassium 5.3 mmol/l (3.3-5.1); Sodium 134 mmol/L (135-145)
[2020-10-15] MEDS: Albuterol/Iprat 2.5/0.5MG 3 ML AMPUL.NEB INHALE ×4 (08:03→20:15)
[2020-10-15 08:06] LABS: Glucose, Whole Blood 95 mg/dL (60-115)
[2020-10-15] MEDS: Folic Acid 1 MG TABLET PO (09:43)
[2020-10-15] MEDS: Baclofen 20 MG TABLET PO (09:43)
[2020-10-15] MEDS: QUEtiapine Fumarate 50 MG TABLET PO ×2 (09:43→21:10)
[2020-10-15] MEDS: Montelukast Sodium 10 MG TABLET PO (09:43)
[2020-10-15] MEDS: clonazePAM 1 MG TABLET PO ×2 (09:43→21:10)
[2020-10-15] MEDS: Metoprolol Succinate ER 25 MG TAB.ER.24H PO (09:43)
[2020-10-15] MEDS: Sennosides 8.6 MG TABLET PO ×2 (09:43→21:10)
[2020-10-15] MEDS: Escitalopram Oxalate 20 MG TABLET PO (09:43)
[2020-10-15] MEDS: Sodium Polystyrene Sulfon/Sorb 15 GM/60 ML ORAL.SUSP PO (09:44)
[2020-10-15] MEDS: Acetaminophen 325 MG TABLET 650 MG PO (09:46)
[2020-10-15] MEDS: Thiamine HCL 200 MG in 0.9 % Sodium Chloride 100 ML 204 MG IV ×2 (09:51→18:16)
[2020-10-15 11:39] LABS: Glucose, Whole Blood 125 mg/dL (60-115)
--- NOTE | 2020-10-15 15:04 | HO.PM.IMPN ---
Subjective Subjective Date of Service: 10/16/20 Interval History: chf , sagar Review of Systems Patient denies any chest pain or shortness of breath or abdominal pain. Seems somewhat emotional today, anxious . Physical Exam Vital Signs: Vital Signs: Last Vital Signs Temp 98.2 F 10/15/20 11:36 Pulse 84 10/15/20 11:36 Resp 20 10/15/20 11:36 BP 162/84 H 10/15/20 11:36 Pulse Ox 100 10/15/20 11:36 Body Mass Index 39.4 Physical exam: Constitutional noted acute distress Cvs: rrr, [id number] , no murmur res: clear to auscultation ,no rhonchii or wheezing abd: no rebound or guarding ,nt, bs present. ext pulses present , no cyanosis neuro: , nonfocal. Objective Data Current Medications Generic Name Dose Route Start Last Admin Trade Name Freq PRN Reason Stop Dose Admin Acetaminophen 650 mg 10/11/20 06:14 10/15/20 09:46 Acetaminophen 325 Mg Tablet PO 650 mg Q6H PRN Administration Pain Acetaminophen 650 mg 10/11/20 10:32 Acetaminophen Supp 650 Mg Supp.Rect [place] Q6H PRN Pain, Mild (Pain Scale 1-3) Albuterol Sulfate 2 puff 10/11/20 01:54 10/11/20 02:26 Albuterol Sulfate 90 Mcg 8 Gm Inhaler INHALE 2 puff Q4H PRN Administration Shortness Of Breath Or Wheezing Albuterol/Ipratropium 3 ml 10/11/20 08:00 10/15/20 11:08 Albuterol/Iprat 2.5/0.5mg 3 Ml Ampul.Neb INHALE 3 ml RQID YUMIKO Administration Aspirin 81 mg 10/11/20 21:00 10/14/20 21:31 Aspirin Enteric Coated 81 Mg Tablet. PO 81 mg BEDTIME YUMIKO Administration Baclofen 20 mg 10/11/20 09:00 10/15/20 09:43 Baclofen 20 Mg Tablet PO 20 mg DAILY YUMIKO Administration Clonazepam 1 mg 10/11/20 02:00 10/15/20 09:43 Clonazepam 1 Mg Tablet PO 1 mg BID YUMIKO Administration Escitalopram Oxalate 20 mg 10/11/20 09:00 10/15/20 09:43 Escitalopram Oxalate 20 Mg Tablet PO 20 mg DAILY YUMIKO Administration Fluticasone Propionate 1 puff 10/11/20 08:00 10/14/20 07:38 Fluticasone Propionate 250 Mcg Blst.W.Dev INHALE 1 puff RBID YUMIKO Administration Folic Acid 1 mg 10/12/20 09:00 10/15/20 09:43 Folic Acid 1 Mg Tablet PO 1 mg DAILY YUMIKO Administration Heparin Sodium (Porcine) 5,000 unit 10/11/20 13:00 10/15/20 12:53 Heparin Sodium,Porcine 5,000 Unit/Ml Vial SUBCUT 5,000 unit Q12H YUMIKO Administration Thiamine HCl 200 mg/ Sodium 102 mls @ 204 mls/hr 10/12/20 09:00 10/15/20 10:36 Chloride IV Infused Q8H YUMIKO Infusion Insulin Human Lispro 0 unit 10/11/20 07:30 10/15/20 12:00 Insulin Lispro 100 Unit/Ml 3 Ml Vial SUBCUT Not Given QIDACHS [facility] Protocol Metoprolol Succinate 25 mg 10/11/20 09:00 10/15/20 09:43 Metoprolol Succinate Er 25 Mg Tab.Er.24h PO 25 mg DAILY YUMIKO Administration Protocol Montelukast Sodium 10 mg 10/11/20 09:00 10/15/20 09:43 Montelukast Sodium 10 Mg Tablet PO 10 mg DAILY YUMIKO Administration Morphine Sulfate 2 mg 10/11/20 21:01 10/11/20 21:18 Morphine Sulfate 2 Mg/Ml Cartridge IVPUSH 2 mg Q6H PRN Administration Pain, Mild (Pain Scale 1-3) Omeprazole 20 mg 10/12/20 16:15 10/15/20 06:16 Omeprazole 20 Mg Capsule.Dr PO 20 mg DAILY@0630 YUMIKO Administration Ondansetron HCl 4 mg 10/11/20 10:32 Ondansetron Hcl 4 Mg/2 Ml Vial IVPUSH Q8H PRN Nausea and Vomiting Pharmacy Consult 1 each 10/10/20 15:10 Consult Rx Perform Med Rec MISCELLANE ONCE PRN Consult order Pravastatin Sodium 20 mg 10/11/20 02:00 10/14/20 21:31 Pravastatin Sodium 20 Mg Tablet PO 20 mg BEDTIME YUMIKO Administration Quetiapine Fumarate 50 mg 10/11/20 02:00 10/15/20 09:43 Quetiapine Fumarate 50 Mg Tablet PO 50 mg BID YUMIKO Administration Senna 8.6 mg 10/11/20 09:00 10/15/20 09:43 Sennosides 8.6 Mg Tablet PO 8.6 mg BID YUMIKO Administration Sodium Chloride 3 ml 10/11/20 16:00 10/15/20 09:43 0.9 % Sodium Chloride Flush 3 Ml Syringe IVFLUSH 3 ml QSHIFT YUMIKO Administration Labs CBC & Chem 7: 10/12/20 06:40 10/16/20 05:33 Microbiology Microbiology Results: Microbiology 10/13/20 00:00 Urine clean catch - Clean Catch Midstream Urine Culture - Preliminary Enterococcus/Streptococcus sp Assessment and Plan (1) SAGAR (acute kidney injury): Problem details: In a setting of CHF May need to restart Lasix despite higher creatinine. Watch K keep on Low K diet Status: Acute (2) CHF exacerbation: Status: Acute (3) Hypoxia: Status: Acute (4) Wernicke encephalopathy: Status: Acute (5) Alcohol use disorder: Status: Acute (6) Altered mental status: Status: Resolved (7) Acute UTI: Status: Resolved (8) Acute metabolic encephalopathy: Status: Resolved (9) Toxic encephalopathy: Status: Resolved (10) Acute hyponatremia: Status: Resolved Assessment and Plan: A 65-year-old female who is admitted with 65-year-old woman who is being admitted with acute congestive heart failure exacerbation and chronic obstructive pulmonary disease exacerbation. 1. Congestive heart failure etiology unclear -systolic vs diastolic. received on IV Lasix, Diuresing well i/o:3400/7.8 liters daily weights bnp improving from [id number] echo:ejection fraction is between 50-55% cardiology consultation: Patient diuresed well with IV Lasix intially -hold lasix: since patient has mild SAGAR and shortness of breath improved, still maintaining negative fluid balance 2.sagar: hold lasix Will add Nephro evaluation since patient is developed sagar. Hyperkalemia-added Kayexalate. Discussed with Nephrology still maintaining negative I I&O or, hold off Lasix. 3. Chronic obstructive pulmonary disease exacerbation. Stable, Of steroids due to elevated BUN, DuoNebs, continue supplemental oxygen. 4. Diabetes mellitus.fs 140-180 range Controlled-continue Sliding scale, ADA diet. 5. History of coronary artery disease. Continue beta suzette, aspirin and statin. 6. Bipolar disorder. Continue Seroquel. 7. Alcohol abuse. Place on CIWA scale. Monitor for any signs of withdrawal. Continue folic acid,on iv thiamine. (11) SAGAR (acute kidney injury): Status: Resolved (12) Hyponatremia: Status: Resolved
[2020-10-15 16:21] LABS: Glucose, Whole Blood 167 mg/dL (60-115)
[2020-10-15] MEDS: Insulin Lispro 100 UNIT/ML 3 ML VIAL SUBCUT (17:17)
--- NOTE | 2020-10-15 18:20 | PM.PNNEP ---
Subjective Subjective Date of Service: 10/15/20 Principal diagnosis: CHF, chest pain Interval history: chf , sagar Very emotional and crying. Physical Exam Vital Signs: Vital Signs: Last Vital Signs Temp 97.8 F 10/15/20 15:46 Pulse 82 10/15/20 15:46 Resp 18 10/15/20 15:46 BP 160/85 H 10/15/20 15:46 Pulse Ox 98 10/15/20 15:46 Body Mass Index 39.4 Const: General: cooperative Resp: Auscultation: crackles Cardio: Heart sounds: no rubs GI: Auscultation: normal bowel sounds Neuro: Motor exam (neuro): no asterixis Objective Data Labs CBC & Chem 7: 10/12/20 06:40 10/15/20 05:25 Labs: Laboratory Results - last 24 hr 10/14/20 10/15/20 10/15/20 20:24 05:25 07:23 Sodium 134 L Potassium 5.3 H D Chloride 101 Carbon Dioxide 24 Anion Gap 14 BUN 65 H Creatinine 1.73 H Estim Creat Clear Calc 35.8 Estimated GFR 29 POC Glucose 128 H 95 Random Glucose 118 H D Calcium 8.0 L 10/15/20 10/15/20 11:35 16:15 Sodium Potassium Chloride Carbon Dioxide Anion Gap BUN Creatinine Estim Creat Clear Calc Estimated GFR POC Glucose 125 H 167 H Random Glucose Calcium Microbiology Microbiology Results: Microbiology 10/13/20 00:00 Urine clean catch - Clean Catch Midstream Urine Culture - Preliminary Enterococcus/Streptococcus sp Assessment & Plan Assessment and plan (1) SAGAR (acute kidney injury): Problem details: In a setting of CHF May need to restart Lasix despite higher creatinine. Watch K keep on Low K diet Status: Acute Time Spent With Patient Time: Total time spent is greater than 50% in coordination of care (as documented) at patient's floor/unit and/or counseling patient:
[2020-10-15 20:36] LABS: Glucose, Whole Blood 120 mg/dL (60-115)
[2020-10-15] MEDS: Aspirin Enteric Coated 81 MG TABLET.DR PO (21:10)
[2020-10-15] MEDS: Pravastatin Sodium 20 MG TABLET PO (21:10)
[2020-10-15] MEDS: Morphine Sulfate 2 MG/ML CARTRIDGE IVPUSH (21:21)
[2020-10-16] VITALS (10 sets, daily range): BP systolic 129–140; BP diastolic 57–83; PULSE 76–86; RESP 18–20; TEMP 36.4–37.7; O2SAT 92–100
[2020-10-16] MEDS: Thiamine HCL 200 MG in 0.9 % Sodium Chloride 100 ML 204 MG IV ×3 (01:34→18:03)
[2020-10-16] MEDS: 0.9 % Sodium Chloride Flush 3 ML SYRINGE IVFLUSH ×4 (01:38→20:32)
[2020-10-16] MEDS: Heparin Sodium,Porcine 5,000 UNIT/ML VIAL 5000 UNIT SUBCUT ×2 (01:38→12:47)
[2020-10-16] MEDS: Omeprazole 20 MG CAPSULE.DR PO (05:43)
[2020-10-16 07:21] LABS: Glucose, Whole Blood 128 mg/dL (60-115)
[2020-10-16 07:31] LABS: Anion Gap 12 (12-20); Blood Urea Nitrogen 54 mg/dL (9-16); Calcium 8.4 mg/dL (8.4-10.2); Carbon Dioxide 27 mmol/L (22-29); Chloride 104 mmol/L (96-108); Creatinine Clr Calc Pharmacy 40.7; Estimated Glomerular Filt Rate 34; Glucose Random 110 mg/dL (60-115); Potassium 4.7 mmol/l (3.3-5.1); Sodium 138 mmol/L (135-145)
[2020-10-16] MEDS: Fluticasone Propionate 250 MCG BLST.W.DEV 1 PUFF INHALE (07:32)
[2020-10-16] MEDS: Albuterol/Iprat 2.5/0.5MG 3 ML AMPUL.NEB INHALE ×4 (07:32→19:48)
[2020-10-16] MEDS: Acetaminophen 325 MG TABLET 650 MG PO (08:53)
[2020-10-16] MEDS: QUEtiapine Fumarate 50 MG TABLET PO ×2 (08:54→20:32)
[2020-10-16] MEDS: Montelukast Sodium 10 MG TABLET PO (08:54)
[2020-10-16] MEDS: Folic Acid 1 MG TABLET PO (08:54)
[2020-10-16] MEDS: Metoprolol Succinate ER 25 MG TAB.ER.24H PO (08:54)
[2020-10-16] MEDS: Sennosides 8.6 MG TABLET PO ×2 (08:55→20:32)
[2020-10-16] MEDS: Escitalopram Oxalate 20 MG TABLET PO (08:55)
[2020-10-16] MEDS: Baclofen 20 MG TABLET PO (08:55)
[2020-10-16 11:19] LABS: Glucose, Whole Blood 135 mg/dL (60-115)
[2020-10-16] MEDS: QUEtiapine Fumarate 25 MG TABLET PO (11:20)
--- NOTE | 2020-10-16 11:46 | MHC.CM.PN ---
per multi dis rounds dc plan is for str ?ana desir antcap[ated dc at this time
--- NOTE | 2020-10-16 14:59 | HO.PM.IMPN ---
Subjective Subjective Date of Service: 10/17/20 Interval History: SAGAR Review of Systems Seems intermittently anxious and emotional Denies any chest pain or shortness of breath or abdominal pain or fever or chills Physical Exam Vital Signs: Vital Signs: Last Vital Signs Temp 97.6 F 10/16/20 11:50 Pulse 76 10/16/20 12:13 Resp 20 10/16/20 11:50 BP 133/83 10/16/20 11:50 Pulse Ox 98 10/16/20 11:50 Body Mass Index 39.4 Physical exam: Constitutional: Not in acute distress Cvs: rrr, [id number] , no murmur res: clear to auscultation ,no rhonchii or wheezing abd: no rebound or guarding ,nt, bs present. ext pulses present , no cyanosis neuro: axo3 , nonfocal. Objective Data Current Medications Generic Name Dose Route Start Last Admin Trade Name Freq PRN Reason Stop Dose Admin Acetaminophen 650 mg 10/11/20 06:14 10/16/20 08:53 Acetaminophen 325 Mg Tablet PO 650 mg Q6H PRN Administration Pain Acetaminophen 650 mg 10/11/20 10:32 Acetaminophen Supp 650 Mg Supp.Rect TN Q6H PRN Pain, Mild (Pain Scale 1-3) Albuterol Sulfate 2 puff 10/11/20 01:54 10/11/20 02:26 Albuterol Sulfate 90 Mcg 8 Gm Inhaler INHALE 2 puff Q4H PRN Administration Shortness Of Breath Or Wheezing Albuterol/Ipratropium 3 ml 10/11/20 08:00 10/16/20 12:03 Albuterol/Iprat 2.5/0.5mg 3 Ml Ampul.Neb INHALE 3 ml RQID YUMIKO Administration Aspirin 81 mg 10/11/20 21:00 10/15/20 21:10 Aspirin Enteric Coated 81 Mg Tablet.Dr PO 81 mg BEDTIME YUMIKO Administration Baclofen 20 mg 10/11/20 09:00 10/16/20 08:55 Baclofen 20 Mg Tablet PO 20 mg DAILY YUMIKO Administration Escitalopram Oxalate 20 mg 10/11/20 09:00 10/16/20 08:55 Escitalopram Oxalate 20 Mg Tablet PO 20 mg DAILY YUMIKO Administration Fluticasone Propionate 1 puff 10/11/20 08:00 10/16/20 07:32 Fluticasone Propionate 250 Mcg Blst.W.Dev INHALE 1 puff RBID YUMIKO Administration Folic Acid 1 mg 10/12/20 09:00 10/16/20 08:54 Folic Acid 1 Mg Tablet PO 1 mg DAILY YUMIKO Administration Heparin Sodium (Porcine) 5,000 unit 10/11/20 13:00 10/16/20 12:47 Heparin Sodium,Porcine 5,000 Unit/Ml Vial SUBCUT 5,000 unit Q12H YUMIKO Administration Thiamine HCl 200 mg/ Sodium 102 mls @ 204 mls/hr 10/12/20 09:00 10/16/20 10:13 Chloride IV Infused Q8H YUMIKO Infusion Insulin Human Lispro 0 unit 10/11/20 07:30 10/16/20 11:16 Insulin Lispro 100 Unit/Ml 3 Ml Vial SUBCUT Not Given [facility] Protocol Metoprolol Succinate 25 mg 10/11/20 09:00 10/16/20 08:54 Metoprolol Succinate Er 25 Mg Tab.Er.24h PO 25 mg DAILY YUMIKO Administration Protocol Montelukast Sodium 10 mg 10/11/20 09:00 10/16/20 08:54 Montelukast Sodium 10 Mg Tablet PO 10 mg DAILY YUMIKO Administration Morphine Sulfate 2 mg 10/11/20 21:01 10/15/20 21:21 Morphine Sulfate 2 Mg/Ml Cartridge IVPUSH 2 mg Q6H PRN Administration Pain, Mild (Pain Scale 1-3) Omeprazole 20 mg 10/12/20 16:15 10/16/20 05:43 Omeprazole 20 Mg Capsule.Dr PO 20 mg DAILY@0630 YUMIKO Administration Ondansetron HCl 4 mg 10/11/20 10:32 Ondansetron Hcl 4 Mg/2 Ml Vial IVPUSH Q8H PRN Nausea and Vomiting Pharmacy Consult 1 each 10/10/20 15:10 Consult Rx Perform Med Rec MISCELLANE ONCE PRN Consult order Pravastatin Sodium 20 mg 10/11/20 02:00 10/15/20 21:10 Pravastatin Sodium 20 Mg Tablet PO 20 mg BEDTIME YUMIKO Administration Quetiapine Fumarate 50 mg 10/11/20 02:00 10/16/20 08:54 Quetiapine Fumarate 50 Mg Tablet PO 50 mg BID YUMIKO Administration Senna 8.6 mg 10/11/20 09:00 10/16/20 08:55 Sennosides 8.6 Mg Tablet PO 8.6 mg BID YUMIKO Administration Sodium Chloride 3 ml 10/11/20 16:00 10/16/20 08:55 0.9 % Sodium Chloride Flush 3 Ml Syringe IVFLUSH 3 ml QSHIFT YUMIKO Administration Labs CBC & Chem 7: 10/12/20 06:40 10/17/20 08:21 Microbiology Microbiology Results: Microbiology 10/13/20 00:00 Urine clean catch - Clean Catch Midstream Urine Culture - Final Enterococcus faecalis Assessment and Plan (1) SAGAR (acute kidney injury): Problem details: In a setting of CHF Diuresing spontaneously Continue to keep O > I Once UO tapers, May need to restart Lasix despite higher creatinine. Watch K keep on Low K diet Status: Acute (2) CHF exacerbation: Status: Acute (3) Hypoxia: Status: Acute (4) Wernicke encephalopathy: Status: Acute (5) Alcohol use disorder: Status: Acute (6) Altered mental status: Status: Resolved (7) Acute UTI: Status: Resolved (8) Acute metabolic encephalopathy: Status: Resolved (9) Toxic encephalopathy: Status: Resolved (10) Acute hyponatremia: Status: Resolved Assessment and Plan: A 65-year-old female who is admitted with 65-year-old woman who is being admitted with acute congestive heart failure exacerbation and chronic obstructive pulmonary disease exacerbation. 1. Congestive heart failure etiology unclear -systolic vs diastolic. received on IV Lasix, Diuresing well total i/o:6.75 /16.75 liters daily weights bnp improving from [id number] echo:ejection fraction is between 50-55% Patient diuresed well with IV Lasix intially -hold lasix from last 2 days since patient has SAGAR and shortness of breath improved, still maintaining negative fluid balance will check bnp in am also may need cardio followup 2.sagar: hold lasix Will add Nephro evaluation since patient is developed sagar. Hyperkalemia-added Kayexalate. Discussed with Nephrology still maintaining negative I I&O or, hold off Lasix.may need to add lasix 3. Chronic obstructive pulmonary disease exacerbation. Stable, Of steroids due to elevated BUN, DuoNebs, continue supplemental oxygen. 4. Diabetes mellitus.fs 130-160 range Controlled-continue Sliding scale, ADA diet. 5. History of coronary artery disease. Continue beta suzette, aspirin and statin. 6. Bipolar disorder. Continue Seroquel. still very emotional and anxious-given an extra dose of Seroquel, add psych. 7. Alcohol abuse. Place on CIWA scale. Monitor for any signs of withdrawal. Continue folic acid,on iv thiamine. (11) SAGAR (acute kidney injury): Status: Resolved (12) Hyponatremia: Status: Resolved
--- NOTE | 2020-10-16 15:20 | MHC.CM.PN ---
KAMILA relayed to that Patient's /HCP/Juanjo at [phone] is requesting a return call for an update on Patient's condition.
--- NOTE | 2020-10-16 15:51 | P.PNNP_ITS ---
Subjective Subjective Date of Service: 10/16/20 Principal diagnosis: CHF, chest pain Interval history: SAGAR Physical Exam Vital Signs: Vital Signs: Last Vital Signs Temp 98.3 F 10/16/20 15:24 Pulse 81 10/16/20 15:47 Resp 18 10/16/20 15:24 BP 129/57 L 10/16/20 15:24 Pulse Ox 100 10/16/20 15:24 Body Mass Index 39.4 Const: General: cooperative Neck: Neck: Yes no JVD Resp: Auscultation: crackles Cardio: Heart sounds: no rubs GI: Auscultation: normal bowel sounds Neuro: Motor exam (neuro): no asterixis Objective Data Labs CBC & Chem 7: 10/12/20 06:40 10/16/20 05:33 Labs: Laboratory Results - last 24 hr 10/15/20 10/15/20 10/16/20 16:15 20:32 05:33 Sodium 138 Potassium 4.7 Chloride 104 Carbon Dioxide 27 Anion Gap 12 BUN 54 H Creatinine 1.52 H Estim Creat Clear Calc 40.7 Estimated GFR 34 POC Glucose 167 H 120 H Random Glucose 110 Calcium 8.4 10/16/20 10/16/20 07:06 11:11 Sodium Potassium Chloride Carbon Dioxide Anion Gap BUN Creatinine Estim Creat Clear Calc Estimated GFR POC Glucose 128 H 135 H Random Glucose Calcium Microbiology Microbiology Results: Microbiology 10/13/20 00:00 Urine clean catch - Clean Catch Midstream Urine Culture - Fi nal Enterococcus faecalis Assessment & Plan Assessment and plan (1) SAGAR (acute kidney injury): Problem details: In a setting of CHF May need to restart Lasix despite higher creatinine. Watch K keep on Low K diet Status: Acute Time Spent With Patient Time: Total time spent is greater than 50% in coordination of care (as documented) at patient's floor/unit and/or counseling patient:
[2020-10-16 16:17] LABS: Glucose, Whole Blood 114 mg/dL (60-115)
[2020-10-16 20:24] LABS: Glucose, Whole Blood 157 mg/dL (60-115)
[2020-10-16] MEDS: Aspirin Enteric Coated 81 MG TABLET.DR PO (20:32)
[2020-10-16] MEDS: Pravastatin Sodium 20 MG TABLET PO (20:32)
[2020-10-16] MEDS: Insulin Lispro 100 UNIT/ML 3 ML VIAL SUBCUT (20:32)
[2020-10-17] VITALS (10 sets, daily range): BP systolic 124–171; BP diastolic 68–81; PULSE 74–84; RESP 18–20; TEMP 36.2–36.7; O2SAT 98–100
[2020-10-17] MEDS: Thiamine HCL 200 MG in 0.9 % Sodium Chloride 100 ML 204 MG IV ×4 (01:17→23:13)
[2020-10-17] MEDS: Heparin Sodium,Porcine 5,000 UNIT/ML VIAL 5000 UNIT SUBCUT ×3 (01:17→23:13)
[2020-10-17] MEDS: Morphine Sulfate 2 MG/ML CARTRIDGE IVPUSH (01:21)
[2020-10-17] MEDS: Omeprazole 20 MG CAPSULE.DR PO (05:54)
[2020-10-17] MEDS: Acetaminophen 325 MG TABLET 650 MG PO ×3 (05:54→20:09)
[2020-10-17 07:14] LABS: Glucose, Whole Blood 179 mg/dL (60-115)
[2020-10-17] MEDS: Albuterol/Iprat 2.5/0.5MG 3 ML AMPUL.NEB INHALE ×3 (07:29→15:00)
[2020-10-17] MEDS: Insulin Lispro 100 UNIT/ML 3 ML VIAL SUBCUT ×2 (09:10→11:35)
[2020-10-17] MEDS: Escitalopram Oxalate 20 MG TABLET PO (09:14)
[2020-10-17] MEDS: QUEtiapine Fumarate 50 MG TABLET PO ×2 (09:14→20:08)
[2020-10-17] MEDS: Metoprolol Succinate ER 25 MG TAB.ER.24H PO (09:14)
[2020-10-17] MEDS: Sennosides 8.6 MG TABLET PO ×2 (09:14→20:08)
[2020-10-17] MEDS: Baclofen 20 MG TABLET PO (09:14)
[2020-10-17] MEDS: Montelukast Sodium 10 MG TABLET PO (09:14)
[2020-10-17] MEDS: Folic Acid 1 MG TABLET PO (09:14)
[2020-10-17] MEDS: 0.9 % Sodium Chloride Flush 3 ML SYRINGE IVFLUSH ×3 (09:15→23:13)
[2020-10-17 10:16] LABS: Anion Gap 12 (12-20); Blood Urea Nitrogen 43 mg/dL (9-16); Calcium 8.6 mg/dL (8.4-10.2); Carbon Dioxide 26 mmol/L (22-29); Chloride 102 mmol/L (96-108); Creatinine Clr Calc Pharmacy 34.9; Estimated Glomerular Filt Rate 29; Glucose Random 135 mg/dL (60-115); Potassium 5.1 mmol/l (3.3-5.1); Sodium 135 mmol/L (135-145)
[2020-10-17 11:11] LABS: Glucose, Whole Blood 174 mg/dL (60-115)
--- NOTE | 2020-10-17 11:34 | PM.PNNEP ---
Subjective Subjective Date of Service: 10/18/20 Principal diagnosis: CHF, chest pain Interval history: SAGAR Still diuresing spontaneously Physical Exam Vital Signs: Vital Signs: Last Vital Signs Temp 98.1 F 10/17/20 11:07 Pulse 77 10/17/20 11:07 Resp 18 10/17/20 11:07 BP 147/71 H 10/17/20 11:07 Pulse Ox 98 10/17/20 11:07 Body Mass Index 39.4 Const: General: cooperative Neck: Neck: Yes no JVD Resp: Auscultation: crackles Cardio: Heart sounds: no rubs GI: Auscultation: normal bowel sounds Neuro: Motor exam (neuro): no asterixis Objective Data Labs CBC & Chem 7: 10/12/20 06:40 10/18/20 05:36 Labs: Laboratory Results - last 24 hr 10/16/20 10/16/20 10/17/20 16:11 20:16 07:03 Sodium Potassium Chloride Carbon Dioxide Anion Gap BUN Creatinine Estim Creat Clear Calc Estimated GFR POC Glucose 114 157 H 179 H Random Glucose Calcium 10/17/20 10/17/20 08:21 11:06 Sodium 135 Potassium 5.1 Chloride 102 Carbon Dioxide 26 Anion Gap 12 BUN 43 H Creatinine 1.77 H Estim Creat Clear Calc 34.9 Estimated GFR 29 POC Glucose 174 H Random Glucose 135 H Calcium 8.6 Microbiology Microbiology Results: Microbiology 10/13/20 00:00 Urine clean catch - Clean Catch Midstream Urine Culture - Final Enterococcus faecalis Assessment & Plan Assessment and plan (1) SAGAR (acute kidney injury): Problem details: In a setting of CHF Diuresing spontaneously Continue to keep O > I Once UO tapers, May need to restart Lasix despite higher creatinine. Watch K keep on Low K diet Status: Acute Time Spent With Patient Time: Total time spent is greater than 50% in coordination of care (as documented) at patient's floor/unit and/or counseling patient:
--- NOTE | 2020-10-17 14:13 | P.PNIM_ITS ---
Subjective Subjective Date of Service: 10/17/20 Interval History: sagar Review of Systems Patient still anxious, Otherwise no chest pains or shortness of breath or abdominal pain or fever or chills Physical Exam Vital Signs: Vital Signs: Last Vital Signs Temp 98.1 F 10/17/20 11:07 Pulse 75 10/17/20 11:41 Resp 18 10/17/20 11:07 BP 147/71 H 10/17/20 11:07 Pulse Ox 98 10/17/20 11:07 Body Mass Index 39.4 Physical exam: Constitutional: Not in acute distress. Cvs: rrr, [id number] , no murmur res: clear to auscultation ,no rhonchii or wheezing abd: no rebound or guarding ,nt, bs present. ext pulses present , no cyanosis neuro: nonfocal. Psych: Seem anxious, crying episodes Objective Data Current Medications Generic Name Dose Route Start Last Admin Trade Name Freq PRN Reason Stop Dose Admin Acetaminophen 650 mg 10/11/20 06:14 10/17/20 11:35 Acetaminophen 325 Mg Tablet PO 650 mg Q6H PRN Administration Pain Acetaminophen 650 mg 10/11/20 10:32 Acetaminophen Supp 650 Mg Supp.Rect MT Q6H PRN Pain, Mild (Pain Scale 1-3) Albuterol Sulfate 2 puff 10/11/20 01:54 10/11/20 02:26 Albuterol Sulfate 90 Mcg 8 Gm Inhaler INHALE 2 puff Q4H PRN Administration Shortness Of Breath Or Wheezing Albuterol/Ipratropium 3 ml 10/11/20 08:00 10/17/20 11:40 Albuterol/Iprat 2.5/0.5mg 3 Ml Ampul.Neb INHALE 3 ml RQID YUMIKO Administration Aspirin 81 mg 10/11/20 21:00 10/16/20 20:32 Aspirin Enteric Coated 81 Mg Tablet.Dr PO 81 mg BEDTIME YUMIKO Administration Baclofen 20 mg 10/11/20 09:00 10/17/20 09:14 Baclofen 20 Mg Tablet PO 20 mg DAILY YUMIKO Administration Escitalopram Oxalate 20 mg 10/11/20 09:00 10/17/20 09:14 Escitalopram Oxalate 20 Mg Tablet PO 20 mg DAILY YUMIKO Administration Fluticasone Propionate 1 puff 10/11/20 08:00 10/17/20 11:38 Fluticasone Propionate 250 Mcg Blst.W.Dev INHALE Not Given RBID YUMIKO Folic Acid 1 mg 10/12/20 09:00 10/17/20 09:14 Folic Acid 1 Mg Tablet PO 1 mg DAILY YUMIKO Administration Heparin Sodium (Porcine) 5,000 unit 10/11/20 13:00 10/17/20 01:17 Heparin Sodium,Porcine 5,000 Unit/Ml Vial SUBCUT 5,000 unit Q12H YUMIKO Administration Thiamine HCl 200 mg/ Sodium 102 mls @ 204 mls/hr 10/12/20 09:00 10/17/20 11:39 Chloride IV Infused Q8H YUMIKO Infusion Insulin Human Lispro 0 unit 10/11/20 07:30 10/17/20 11:35 Insulin Lispro 100 Unit/Ml 3 Ml Vial SUBCUT 2 unit QIDACHS YUMIKO Administration Protocol Metoprolol Succinate 25 mg 10/11/20 09:00 10/17/20 09:14 Metoprolol Succinate Er 25 Mg Tab.Er.24h PO 25 mg DAILY YUMIKO Administration Protocol Montelukast Sodium 10 mg 10/11/20 09:00 10/17/20 09:14 Montelukast Sodium 10 Mg Tablet PO 10 mg DAILY YUMIKO Administration Morphine Sulfate 2 mg 10/16/20 21:12 10/17/20 01:21 Morphine Sulfate 2 Mg/Ml Cartridge IVPUSH 2 mg Q6H PRN Administration Pain, Mild (Pain Scale 1-3) Omeprazole 20 mg 10/12/20 16:15 10/17/20 05:54 Omeprazole 20 Mg Capsule.Dr PO 20 mg DAILY@0630 YUMIKO Administration Ondansetron HCl 4 mg 10/11/20 10:32 Ondansetron Hcl 4 Mg/2 Ml Vial IVPUSH Q8H PRN Nausea and Vomiting Pharmacy Consult 1 each 10/10/20 15:10 Consult Rx Perform Med Rec MISCELLANE ONCE PRN Consult order Pravastatin Sodium 20 mg 10/11/20 02:00 10/16/20 20:32 Pravastatin Sodium 20 Mg Tablet PO 20 mg BEDTIME YUMIKO Administration Quetiapine Fumarate 50 mg 10/11/20 02:00 10/17/20 09:14 Quetiapine Fumarate 50 Mg Tablet PO 50 mg BID YUMIKO Administration Senna 8.6 mg 10/11/20 09:00 10/17/20 09:14 Sennosides 8.6 Mg Tablet PO 8.6 mg BID YUMIKO Administration Sodium Chloride 3 ml 10/11/20 16:00 10/17/20 09:15 0.9 % Sodium Chloride Flush 3 Ml Syringe IVFLUSH 3 ml QSHIFT YUMIKO Administration Labs CBC & Chem 7: 10/12/20 06:40 10/17/20 08:21 Microbiology Microbiology Results: Microbiology 10/13/20 00:00 Urine clean catch - Clean Catch Midstream Urine Culture - Final Enterococcus faecalis Assessment and Plan (1) SAGAR (acute kidney injury): Problem details: In a setting of CHF Diuresing spontaneously Continue to keep O > I Once UO tapers, May need to restart Lasix despite higher creatinine. Watch K keep on Low K diet Status: Acute (2) CHF exacerbation: Status: Acute (3) Hypoxia: Status: Acute (4) Wernicke encephalopathy: Status: Acute (5) Alcohol use disorder: Status: Acute (6) Altered mental status: Status: Resolved (7) Acute UTI: Status: Resolved (8) Acute metabolic encephalopathy: Status: Resolved (9) Toxic encephalopathy: Status: Resolved (10) Acute hyponatremia: Status: Resolved Assessment and Plan: A 65-year-old female who is admitted with 65-year-old woman who is being admitted with acute congestive heart failure exacerbation and chronic obstructive pulmonary disease exacerbation. 1. Congestive heart failure etiology unclear -systolic vs diastolic. received on IV Lasix, Diuresing well total i/o:8.1 /19 liters daily weights bnp improving from [id number], will recheck in am echo:ejection fraction is between 50-55% Patient diuresed well with IV Lasix intially -hold lasix from last 3 days but still maintaining negative i/o balance. 2.sagar: hold lasix Will add Nephro evaluation since patient is developed sagar. Hyperkalemia 2days back -improved with Kayexalate. d/w nephrology: Still maintaining i/o balance negative without Lasix, unclear, renal functions worsenslowly -moniter renal function. 3. Chronic obstructive pulmonary disease exacerbation. Stable, Of steroids due to elevated BUN, DuoNebs, continue supplemental oxygen. 4. Diabetes mellitus.fs 130-170 range Controlled-continue Sliding scale, ADA diet. 5. History of coronary artery disease. Continue beta suzette, aspirin and st atin. 6. Bipolar disorder. Continue Seroquel. still very emotional and anxious- seroquel 12.5 mg prn. 7. Alcohol abuse. Place on CIWA scale. Monitor for any signs of withdrawal. Continue folic acid,on iv thiamine. (11) SAGAR (acute kidney injury): Status: Resolved (12) Hyponatremia: Status: Resolved
[2020-10-17 16:19] LABS: Glucose, Whole Blood 135 mg/dL (60-115)
--- NOTE | 2020-10-17 19:00 | P.CNPS_ITS ---
History of Present Illness Date of Service: 10/17/2020 Chief Complaint: CHF, COPD Reason for Consult: mood disorder Requesting physician: Adelaide Patiño Discussed with referring provider: Yes Sources of Information: patient interviewed and chart reviewed HPI Narrative: Patient is a 65 year old Hebrew speaking female who is currently medically admitted with COPD and CHF exacerbation. Consult requested as patient has reportedly had episoded of agitation and overa ll mood lability. Patient known to this real estate underwriter from previous consult in July 2020 when patient was admitted with confusion and electrolyte instability and found to likely have Wernikes She has a history of AUD and per H&P from this admission, VNA reported concern that patient was being given alcohol and marijuana, ED visit from earlier this month as well where patient presented for a fall d/t alcohol intoxication. Patient seen in room 452. Awake, alert, initially pleasant and engaged in in terview. Reporting she is hospitalized due to her heart. She then suddenly began to cry stating that her mother yesterday. She stated that she needed to leave the hospital and fly to [place] because her sister had ice under her mother's casket to make sure her body would be okay until patient arrived in [place]. Unclear if patient's mother passed or not last evening, but statements likely confabulatio ns. She was easily distracted and this real estate underwriter able to move onto a completely different topic and patient moved on as well with no issue, no residual crying etc. Also question regarding presence of VH as she believed the doctor was standing in the doorway but left when you turned around She denies any history of alcohol use I have never had a drink in my life . She is currently prescribed Seroquel 50mg BID Per RN, patient has been in overall behavioral control and has not had any episodes of aggression during this admission Review of Systems Reports Abnormal speech present and Reports confusion (Answer some questions appropriately) Psychiatric: Reports anxiety and Reports confusion (Answer some questions appropriately) [facility] Medical History Bipolar 1 disorder COPD (chronic obstructive pulmonary disease) Coronary artery disease Diabetes Hypertension Osteoarthritis Sleep apnea Surgical History Hx of appendectomy Diagnostics Vital Signs (24Hr): Vital Signs - 24 hr 10/16/20 19:13 10/16/20 19:49 10/17/20 00:00 Temperature 100 F 97.7 F Pulse Rate 78 78 77 Respiratory Rate 18 18 Blood Pressure 132/62 124/68 Pulse Oximetry 100 99 10/17/20 03:45 10/17/20 07:30 10/17/20 07:31 Temperature 97.5 F 98.0 F Pulse Rate 84 76 75 Respiratory Rate 18 18 Blood Pressure 151/74 H 160/80 H Pulse Oximetry 98 98 10/17/20 11:07 10/17/20 11:41 10/17/20 15:00 Temperature 98.1 F Pulse Rate 77 75 74 Respiratory Rate 18 Blood Pressure 147/71 H Pulse Oximetry 98 10/17/20 15:25 Temperature 97.3 F Pulse Rate 74 Respiratory Rate 18 Blood Pressure 171/81 H Pulse Oximetry 100 Body Mass Index 39.4 Labs Results: 10/12/20 06:40 10/17/20 08:21 Labs: Laboratory Results - last 48 hr 10/15/20 10/16/20 10/16/20 20:32 05:33 07:06 Sodium 138 Potassium 4.7 Chloride 104 Carbon Dioxide 27 Anion Gap 12 BUN 54 H Creatinine 1.52 H Estim Creat Clear Calc 40.7 Estimated GFR 34 POC Glucose 120 H 128 H Random Glucose 110 Calcium 8.4 10/16/20 10/16/20 10/16/20 11:11 16:11 20:16 Sodium Potassium Chloride Carbon Dioxide Anion Gap BUN Creatinine Estim Creat Clear Calc Estimated GFR POC Glucose 135 H 114 157 H Random Glucose Calcium 10/17/20 10/17/20 10/17/20 07:03 08:21 11:06 Sodium 135 Potassium 5.1 Chloride 102 Carbon Dioxide 26 Anion Gap 12 BUN 43 H Creatinine 1.77 H Estim Creat Clear Calc 34.9 Estimated GFR 29 POC Glucose 179 H 174 H Random Glucose 135 H Calcium 8.6 10/17/20 16:11 Sodium Potassium Chloride Carbon Dioxide Anion Gap BUN Creatinine Estim Creat Clear Calc Estimated GFR POC Glucose 135 H Random Glucose Calcium Imaging Radiology Impressions: ITS Impressions Chest X-Ray 10/10/20 07:27 IMPRESSION: Mild cardiomegaly. Lungs are clear. There is severe degenerative arthritic changes bilateral hip joints with periapical spurring and subchondral cyst. No visible acute fracture or dislocation in AP pelvis or the left hip. If patient has significant pain and left hip and a fracture suspected a CT can be performed. Head CT 10/10/20 07:27 IMPRESSION: No acute intracranial process seen. No major change compared to previous study 10/09/2020 Hip/Pelvis X-Ray 10/10/20 07:27 IMPRESSION: Mild cardiomegaly. Lungs are clear. There is severe degenerative arthritic changes bilateral hip joints with periapical spurring and subchondral cyst. No visible acute fracture or dislocation in AP pelvis or the left hip. If patient has significant pain and left hip and a fracture suspected a CT can be performed. Hip CT 10/10/20 15:42 IMPRESSION: No visible acute fracture, dislocation or subluxation involving left hip. Severe degenerative changes left hip joint. Chest X-Ray 10/11/20 02:32 IMPRESSION: Cardiomegaly with pulmonary venous congestion. Mental Status Exam Mental Status Exam Patient Appearance: Disheveled Patient Orientation: Person and Situation Level of Consciousness: Awake and Alert Patient Behavior: Talkative, Anxious and Confused Mood Description: Labile Affect Description: Labile Patient Cognition Impaired: Yes Ability to Follow Directions: Good Speech Pattern: Cofabulation Hallucinations: Visual Thought Process: Disoriented and Confusion Thought Content: positive for Disoriented and positive for Disorganized Judgement: Poor Medications Medications Current Medications Generic Name Dose Route Start Last Admin Trade Name Freq PRN Reason Stop Dose Admin Acetaminophen 650 mg 10/11/20 06:14 10/17/20 11:35 Acetaminophen 325 Mg Tablet PO 650 mg Q6H PRN Administration Pain Acetaminophen 650 mg 10/11/20 10:32 Acetaminophen Supp 650 Mg Supp.Rect PA Q6H PRN Pain, Mild (Pain Scale 1-3) Albuterol Sulfate 2 puff 10/11/20 01:54 10/11/20 02:26 Albuterol Sulfate 90 Mcg 8 Gm Inhaler INHALE 2 puff Q4H PRN Administration Shortness Of Breath Or Wheezing Albuterol/Ipratropium 3 ml 10/11/20 08:00 10/17/20 15:00 Albuterol/Iprat 2.5/0.5mg 3 Ml Ampul.Neb INHALE 3 ml RQID YUMIKO Administration Aspirin 81 mg 10/11/20 21:00 10/16/20 20:32 Aspirin Enteric Coated 81 Mg Tablet. PO 81 mg BEDTIME YUMIKO Administration Baclofen 20 mg 10/11/20 09:00 10/17/20 09:14 Baclofen 20 Mg Tablet PO 20 mg DAILY [facility] Administration Escitalopram Oxalate 20 mg 10/11/20 09:00 10/17/20 09:14 Escitalopram Oxalate 20 Mg Tablet PO 20 mg DAILY YUM[facility]KO Administration Fluticasone Propionate 1 puff 10/11/20 08:00 10/17/20 11:38 Fluticasone Propionate 250 Mcg Blst.W.Dev INHALE Not Given RBID YUMIKO Folic Acid 1 mg 10/12/20 09:00 10/17/20 09:14 Folic Acid 1 Mg Tablet PO 1 mg DAILY [facility] Administration Heparin Sodium (Porcine) 5,000 unit 10/11/20 13:00 10/17/20 14:19 Heparin Sodium,Porcine 5,000 Unit/Ml Vial SUBCUT 5,000 unit Q12H [facility] Administration Thiamine HCl 200 mg/ Sodium 102 mls @ 204 mls/hr 10/12/20 09:00 10/17/20 17:31 Chloride IV Infused Q8H [facility] Infusion Insulin Human Lispro 0 unit 10/11/20 07:30 10/17/20 16:58 Insulin Lispro 100 Unit/Ml 3 Ml Vial SUBCUT Not Given QIDACHS [facility] Protocol Metoprolol Succinate 25 mg 10/11/20 09:00 10/17/20 09:14 Metoprolol Succinate Er 25 Mg Tab.Er.24h PO 25 mg DAILY [facility] Administration Protocol Montelukast Sodium 10 mg 10/11/20 09:00 10/17/20 09:14 Montelukast Sodium 10 Mg Tablet PO 10 mg DAILY [facility] Administration Morphine Sulfate 2 mg 10/16/20 21:12 10/17/20 01:21 Morphine Sulfate 2 Mg/Ml Cartridge IVPUSH 2 mg Q6H PRN Administration Pain, Mild (Pain Scale 1-3) Omeprazole 20 mg 10/12/20 16:15 10/17/20 05:54 Omeprazole 20 Mg Capsule.Dr PO 20 mg DAILY@0630 [facility] Administration Ondansetron HCl 4 mg 10/11/20 10:32 Ondansetron Hcl 4 Mg/2 Ml Vial IVPUSH Q8H PRN Nausea and Vomiting Pharmacy Consult 1 each 10/10/20 15:10 Consult Rx Perform Med Rec MISCELLANE ONCE PRN Consult order Pravastatin Sodium 20 mg 10/11/20 02:00 10/16/20 20:32 Pravastatin Sodium 20 Mg Tablet PO 20 mg BEDTIME YUMIKO Administration Quetiapine Fumarate 50 mg 10/11/20 02:00 10/17/20 09:14 Quetiapine Fumarate 50 Mg Tablet PO 50 mg BID YUMIKO Administration Quetiapine Fumarate 12.5 mg 10/17/20 14:12 Quetiapine Fumarate 25 Mg Tablet PO BID PRN anxiety/restlessness Senna 8.6 mg 10/11/20 09:00 10/17/20 09:14 Sennosides 8.6 Mg Tablet PO 8.6 mg BID YUMIKO Administration Sodium Chloride 3 ml 10/11/20 16:00 10/17/20 15:11 0.9 % Sodium Chloride Flush 3 Ml Syringe IVFLUSH 3 ml QSHIFT [facility]UMIKO Administration Allergies Allergies Allergy/AdvReac Type Severity Reaction Status Date / Time advair Allergy Unknown Unknown Uncoded 10/08/20 20:46 paxil Allergy Unknown Unknown Uncoded 10/08/20 20:46 From PAXIL AdvReac Intermediate NAUSEA & Uncoded 10/08/20 20:46 VOMITING Assessment & Plan Assessment & Plan (1) Alcohol use disorder: Status: Acute Recommendations: * low dose Seroquel PRN for increased agitation * based on history and current clinical picture 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 * check magnesium level and replete as necessary Greater than 50% of the session was spent on counseling and/or coordination of care
[2020-10-17] MEDS: Aspirin Enteric Coated 81 MG TABLET.DR PO (20:08)
[2020-10-17] MEDS: Pravastatin Sodium 20 MG TABLET PO (20:08)
[2020-10-17 20:18] LABS: Glucose, Whole Blood 139 mg/dL (60-115)
[2020-10-18] VITALS (9 sets, daily range): BP systolic 130–187; BP diastolic 59–84; PULSE 66–93; RESP 19–20; TEMP 36.1–37.2; O2SAT 98–100
[2020-10-18] MEDS: Omeprazole 20 MG CAPSULE.DR PO (05:31)
[2020-10-18 07:14] LABS: Anion Gap 15 (12-20); Blood Urea Nitrogen 43 mg/dL (9-16); Calcium 8.8 mg/dL (8.4-10.2); Carbon Dioxide 25 mmol/L (22-29); Chloride 105 mmol/L (96-108); Creatinine Clr Calc Pharmacy 36.4; Estimated Glomerular Filt Rate 30; Glucose Random 118 mg/dL (60-115); Potassium 5.5 mmol/l (3.3-5.1); Sodium 139 mmol/L (135-145)
[2020-10-18] MEDS: Albuterol/Iprat 2.5/0.5MG 3 ML AMPUL.NEB INHALE (07:45)
[2020-10-18 08:05] LABS: Glucose, Whole Blood 123 mg/dL (60-115)
[2020-10-18] MEDS: Baclofen 20 MG TABLET PO (08:18)
[2020-10-18] MEDS: Folic Acid 1 MG TABLET PO (08:18)
[2020-10-18] MEDS: QUEtiapine Fumarate 50 MG TABLET PO ×2 (08:18→20:56)
[2020-10-18] MEDS: 0.9 % Sodium Chloride Flush 3 ML SYRINGE IVFLUSH ×3 (08:18→21:02)
[2020-10-18] MEDS: Metoprolol Succinate ER 25 MG TAB.ER.24H PO (08:18)
[2020-10-18] MEDS: Montelukast Sodium 10 MG TABLET PO (08:18)
[2020-10-18] MEDS: Sennosides 8.6 MG TABLET PO ×2 (08:18→20:56)
[2020-10-18] MEDS: Escitalopram Oxalate 20 MG TABLET PO (08:18)
[2020-10-18] MEDS: Thiamine HCL 200 MG in 0.9 % Sodium Chloride 100 ML 204 MG IV ×2 (09:06→19:54)
[2020-10-18] MEDS: Morphine Sulfate 2 MG/ML CARTRIDGE IVPUSH ×2 (09:10→20:56)
[2020-10-18 11:35] LABS: Glucose, Whole Blood 150 mg/dL (60-115)
[2020-10-18] MEDS: Fluticasone Propionate 250 MCG BLST.W.DEV 1 PUFF INHALE (12:38)
[2020-10-18] MEDS: Heparin Sodium,Porcine 5,000 UNIT/ML VIAL 5000 UNIT SUBCUT (12:41)
[2020-10-18] MEDS: Sodium Polystyrene Sulfon/Sorb 15 GM/60 ML ORAL.SUSP PO (12:41)
--- NOTE | 2020-10-18 14:57 | P.PNIM_ITS ---
Subjective Subjective Date of Service: 10/18/20 Interval History: Seen in f/u for heart failure exacerbation Physical Exam Vital Signs: Vital Signs: Last Vital Signs Temp 97.0 F 10/18/20 11:38 Pulse 75 10/18/20 11:38 Resp 20 10/18/20 11:38 BP 173/84 H 10/18/20 11:38 Pulse Ox 100 10/18/20 11:38 Body Mass Index 39.4 General: AO X 3, no acute distres Resp: CTA bilateral CVS: S1,S2,RRR, 1 + leg edema GI: +BS, NT, no distention Skin: No rash Neuro: motor grossly intact Psych: appropriate affect Objective Data Current Medications Generic Name Dose Route Start Last Admin Trade Name Freq PRN Reason Stop Dose Admin Acetaminophen 650 mg 10/11/20 06:14 10/17/20 20:09 Acetaminophen 325 Mg Tablet PO 650 mg Q6H PRN Administration Pain Acetaminophen 650 mg 10/11/20 10:32 Acetaminophen Supp 650 Mg Supp.Rect NE Q6H PRN Pain, Mild (Pain Scale 1-3) Albuterol Sulfate 2 puff 10/11/20 01:54 10/11/20 02:26 Albuterol Sulfate 90 Mcg 8 Gm Inhaler INHALE 2 puff Q4H PRN Administration Shortness Of Breath Or Wheezing Aspirin 81 mg 10/11/20 21:00 10/17/20 20:08 Aspirin Enteric Coated 81 Mg Tablet.Dr PO 81 mg BEDTIME YUMIKO Administration Baclofen 20 mg 10/11/20 09:00 10/18/20 08:18 Baclofen 20 Mg Tablet PO 20 mg DAILY [facility] Administration Escitalopram Oxalate 20 mg 10/11/20 09:00 10/18/20 08:18 Escitalopram Oxalate 20 Mg Tablet PO 20 mg DAILY [facility] Administration Fluticasone Propionate 1 puff 10/11/20 08:00 10/18/20 12:38 Fluticasone Propionate 250 Mcg Blst.W.Dev INHALE 1 puff RBID YUMIKO Administration Folic Acid 1 mg 10/12/20 09:00 10/18/20 08:18 Folic Acid 1 Mg Tablet PO 1 mg DAILY YUMIKO Administration Heparin Sodium (Porcine) 5,000 unit 10/11/20 13:00 10/18/20 12:41 Heparin Sodium,Porcine 5,000 Unit/Ml Vial SUBCUT 5,000 unit Q12H [facility]UM[facility] Administration Thiamine HCl 200 mg/ Sodium 102 mls @ 204 mls/hr 10/12/20 09:00 10/18/20 09:36 Chloride IV Infused Q8H [facility] Infusion Insulin Human Lispro 0 unit 10/11/20 07:30 10/18/20 11:27 Insulin Lispro 100 Unit/Ml 3 Ml Vial SUBCUT Not Given QIDACHS [facility] Protocol Metoprolol Succinate 25 mg 10/11/20 09:00 10/18/20 08:18 Metoprolol Succinate Er 25 Mg Tab.Er.24h PO 25 mg DAILY YUMIKO Administration Protocol Montelukast Sodium 10 mg 10/11/20 09:00 10/18/20 08:18 Montelukast Sodium 10 Mg Tablet PO 10 mg DAILY [facility] Administration Morphine Sulfate 2 mg 10/16/20 21:12 10/18/20 09:10 Morphine Sulfate 2 Mg/Ml Cartridge IVPUSH 2 mg Q6H PRN Administration Pain, Mild (Pain Scale 1-3) Omeprazole 20 mg 10/12/20 16:15 10/18/20 05:31 Omeprazole 20 Mg Capsule.Dr PO 20 mg DAILY@0630 [facility] Administration Ondansetron HCl 4 mg 10/11/20 10:32 Ondansetron Hcl 4 Mg/2 Ml Vial IVPUSH Q8H PRN Nausea and Vomiting Pharmacy Consult 1 each 10/10/20 15:10 Consult Rx Perform Med Rec MISCELLANE ONCE PRN Consult order Pravastatin Sodium 20 mg 10/11/20 02:00 10/17/20 20:08 Pravastatin Sodium 20 Mg Tablet PO 20 mg BEDTIME YUMIKO Administration Quetiapine Fumarate 50 mg 10/11/20 02:00 10/18/20 08:18 Quetiapine Fumarate 50 Mg Tablet PO 50 mg BID YUMIKO Administration Quetiapine Fumarate 12.5 mg 10/17/20 14:12 Quetiapine Fumarate 25 Mg Tablet PO BID PRN anxiety/restlessness Senna 8.6 mg 10/11/20 09:00 10/18/20 08:18 Sennosides 8.6 Mg Tablet PO 8.6 mg BID YUMIKO Administration Sodium Chloride 3 ml 10/11/20 16:00 10/18/20 08:18 0.9 % Sodium Chloride Flush 3 Ml Syringe IVFLUSH 3 ml QSHIFT [facility] Administration Labs CBC & Chem 7: 10/12/20 06:40 10/18/20 05:36 Microbiology Microbiology Results: Microbiology 10/13/20 00:00 Urine clean catch - Clean Catch Midstream Urine Culture - Final Enterococcus faecalis Assessment and Plan (1) SAGAR (acute kidney injury): Status: Acute (2) CHF exacerbation: Status: Acute (3) Hypoxia: Status: Acute (4) Wernicke encephalopathy: Status: Acute (5) Alcohol use disorder: Status: Acute (6) Altered mental status: Status: Resolved (7) Acute UTI: Status: Resolved (8) Acute metabolic encephalopathy: Status: Resolved (9) Toxic encephalopathy: Status: Resolved (10) Acute hyponatremia: Status: Resolved Assessment and Plan: 65-admitted with congestive heart failure exacerbation 1. Congestive heart failure etiology unclear -acute diastolic heart failure exacerbation. Symptomatically has been treated with IV lasix with good effect and has diuresse 12 liters and is feeling better. Echo showed EF 50 to 55%. 2. SAGAR on CKD-- Creatinine above baseline so Lasix is being on hold and will be restart if spontaneous diuresis tappers 3. Chronic obstructive pulmonary disease exacerbation. Stable, Of steroids due to elevated BUN, DuoNebs, continue supplemental oxygen. 4. Diabetes mellitus. SSI 5. History of coronary artery disease. Continue beta suzette, aspirin and statin. 6. Bipolar disorder. Continue Seroquel per Psych recommendation 7. Alcohol abuse. Place on CIWA scale. Monitor for any signs of withdrawal. Continue folic acid,on iv thiamine. PT is recommending Short term rehab (11) Hyponatremia: Status: Resolved
--- NOTE | 2020-10-18 15:20 | PM.PNNEP ---
Subjective Subjective Date of Service: 10/18/20 Principal diagnosis: CHF, chest pain Interval history: Events noted Still emotional Physical Exam Vital Signs: Vital Signs: Last Vital Signs Temp 97.2 F 10/18/20 15:18 Pulse 66 10/18/20 15:18 Resp 19 10/18/20 15:18 BP 160/84 H 10/18/20 15:18 Pulse Ox 98 10/18/20 15:18 Body Mass Index 39.4 Const: General: cooperative Neck: Neck: Yes no JVD Resp: Auscultation: crackles Cardio: Heart sounds: no rubs GI: Auscultation: normal bowel sounds Neuro: Motor exam (neuro): no asterixis Objective Data Labs CBC & Chem 7: 10/12/20 06:40 10/18/20 05:36 Labs: Laboratory Results - last 24 hr 10/17/20 10/17/20 10/18/20 16:11 20:14 05:36 Sodium 139 Potassium 5.5 H Chloride 105 Carbon Dioxide 25 Anion Gap 15 BUN 43 H Creatinine 1.70 H Estim Creat Clear Calc 36.4 Estimated GFR 30 POC Glucose 135 H 139 H Random Glucose 118 H Calcium 8.8 10/18/20 10/18/20 07:44 11:19 Sodium Potassium Chloride Carbon Dioxide Anion Gap BUN Creatinine Estim Creat Clear Calc Estimated GFR POC Glucose 123 H 150 H Random Glucose Calcium Microbiology Microbiology Results: Microbiology 10/13/20 00:00 Urine clean catch - Clean Catch Midstream Urine Culture - Final Enterococcus faecalis Assessment & Plan Assessment and plan (1) SAGAR (acute kidney injury): Status: Acute Assessment and Plan: 1) SAGAR (acute kidney injury): Problem details: In a setting of CHF Diuresing spontaneously !! Continue to keep O > I Once UO tapers, May need to restart Lasix despite higher creatinine. Watch K keep on Low K diet Check urine Na an d Osm Time Spent With Patient Time: Total time spent is greater than 50% in coordination of care (as documented) at patient's floor/unit and/or counseling patient:
--- NOTE | 2020-10-18 15:51 | MHC.CM.PN ---
pt accepted at [facility] pts hcp agreeable md states dc possible 10/[address] notified of same
[2020-10-18 17:24] LABS: Glucose, Whole Blood 144 mg/dL (60-115)
[2020-10-18 19:05] LABS: Anion Gap 16 (12-20); Carbon Dioxide 22 mmol/L (22-29); Chloride 104 mmol/L (96-108); Potassium 5.5 mmol/l (3.3-5.1); Sodium 136 mmol/L (135-145)
[2020-10-18 19:36] LABS: Glucose, Whole Blood 167 mg/dL (60-115)
[2020-10-18] MEDS: Aspirin Enteric Coated 81 MG TABLET.DR PO (20:56)
[2020-10-18] MEDS: Pravastatin Sodium 20 MG TABLET PO (20:56)
[2020-10-18] MEDS: Insulin Lispro 100 UNIT/ML 3 ML VIAL SUBCUT (20:57)
[2020-10-19] VITALS (8 sets, daily range): BP systolic 129–164; BP diastolic 64–77; PULSE 74–86; RESP 16–19; TEMP 35.8–36.9; O2SAT 95–100
[2020-10-19] MEDS: Heparin Sodium,Porcine 5,000 UNIT/ML VIAL 5000 UNIT SUBCUT ×2 (01:30→13:54)
[2020-10-19] MEDS: Morphine Sulfate 4 MG/ML CARTRIDGE IVPUSH (01:30)
[2020-10-19] MEDS: Thiamine HCL 200 MG in 0.9 % Sodium Chloride 100 ML 204 MG IV ×2 (04:12→12:14)
[2020-10-19] MEDS: Omeprazole 20 MG CAPSULE.DR PO (06:01)
[2020-10-19] MEDS: Folic Acid 1 MG TABLET PO (08:01)
[2020-10-19] MEDS: Baclofen 20 MG TABLET PO (08:01)
[2020-10-19] MEDS: QUEtiapine Fumarate 50 MG TABLET PO ×2 (08:01→21:33)
[2020-10-19] MEDS: Metoprolol Succinate ER 25 MG TAB.ER.24H PO (08:02)
[2020-10-19] MEDS: Insulin Lispro 100 UNIT/ML 3 ML VIAL SUBCUT (08:02)
[2020-10-19] MEDS: Montelukast Sodium 10 MG TABLET PO (08:02)
[2020-10-19] MEDS: Sennosides 8.6 MG TABLET PO ×2 (08:02→21:33)
[2020-10-19] MEDS: 0.9 % Sodium Chloride Flush 3 ML SYRINGE IVFLUSH (08:02)
[2020-10-19] MEDS: Escitalopram Oxalate 20 MG TABLET PO (08:02)
[2020-10-19] MEDS: Fluticasone Propionate 250 MCG BLST.W.DEV 1 PUFF INHALE (08:08)
[2020-10-19 08:51] LABS: Glucose, Whole Blood 284 mg/dL (60-115)
[2020-10-19 11:27] LABS: Anion Gap 12 (12-20); Blood Urea Nitrogen 30 mg/dL (9-16); Calcium 8.6 mg/dL (8.4-10.2); Carbon Dioxide 27 mmol/L (22-29); Chloride 104 mmol/L (96-108); Creatinine Clr Calc Pharmacy 40.1; Estimated Glomerular Filt Rate 34; Glucose Random 107 mg/dL (60-115); Potassium 4.6 mmol/l (3.3-5.1); Sodium 138 mmol/L (135-145)
--- NOTE | 2020-10-19 12:04 | PM.DS ---
DS: Providers Provider Date of Service: 10/20/20 Date of admission: 10/11/20 10:32 Primary care physician: Unknown Physician Consults: 10/11/20 10:32 Consult to Cardiology Routine Consulting Provider: Lukasz Anthony Reason for consultation: CHF Has provider been notified: No 10/13/20 08:26 Consult to Nephrology Routine Consulting Provider: Dilshad Gallegos Reason for consultation: chf excerebation, sagar Has provider been notified: No 10/16/20 14:57 Consult to Psychiatry Routine Consulting Provider: Inge Maxwell Reason for consultation: MOOD DISORDER Has provider been notified: No DS: Diagnosis Discharge Diagnosis (1) SAGAR (acute kidney injury): Status: Acute (2) CHF exacerbation: Status: Acute (3) Hypoxia: Status: Acute (4) Wernicke encephalopathy: Status: Acute (5) Alcohol use disorder: Status: Acute (6) Altered mental status: Status: Resolved (7) Acute UTI: Status: Resolved (8) Acute metabolic encephalopathy: Status: Resolved (9) Toxic encephalopathy: Status: Resolved (10) Acute hyponatremia: Status: Resolved (11) Hyponatremia: Status: Resolved DS: Medications Discharge Medications Home Medications: Home Medications Medication Instructions Recorded Confirmed Flovent HFA 1 puff INHALATION BID 08/18/20 10/10/20 albuterol sulfate [Ventolin HFA] 2 puff INHALATION Q4-6H PRN 08/18/20 10/10/20 aspirin 1 tab PO BEDTIME 08/18/20 10/10/20 citalopram 40 mg PO QAM 08/18/20 10/10/20 ipratropium-albuterol 1 amp INHALATION QID 08/18/20 10/10/20 montelukast 10 mg PO DAILY 08/18/20 10/11/20 acetaminophen 650 mg PO Q12H PRN 10/10/20 10/10/20 baclofen 20 mg PO DAILY 10/10/20 10/10/20 clonazepam 1 mg PO BID 10/10/20 10/10/20 metoprolol succinate 25 mg PO DAILY 10/10/20 10/10/20 pravastatin 20 mg PO BEDTIME 10/10/20 10/10/20 quetiapine 50 mg PO BID 10/10/20 10/10/20 sennosides [senna] 8.6 mg PO BID 10/10/20 10/10/20 Previous Rx's Medication Instructions Recorded folic acid 1 mg PO DAILY #30 tab 08/28/20 insulin lispro [Humalog U-100 1 sliding scale dose SUBCUT 08/28/20 Insulin] QIDACHS #10 ml thiamine HCl (vitamin B1) 100 mg PO DAILY #30 tab 08/28/20 DS: Summary Hospital Course Hospital Course: The patient was initially brought to the ER on October 08 after a fall and apparently had been binge drinking. She was brought by her . She was then discharged home and then again brought back on Wednesday. The patients Visiting nurse (Louise Potter ) stated that she felt like the patient was being given marijuana and alcohol by her she thought that was dangerous because the patient was declared to not be her own decision maker. Apparently the visiting nurse sent a case management referral for safety, At that time, she had been showing aggressive behaviors. She had a head CT which was negative for any acute abnormality. It appears at that time the patient was going to be discharged home with a diagnosis of hyponatremia and alcohol intoxication; however, the patient began to have chest pain and was requiring oxygen due to shortness of breath. She had imaging which was consistent with congestive heart failure. Her BNP was noted to be 3209 with previous level being normal. The patient was given IV Lasix and Dudley catheter was placed. She does have a history of schizophrenia and dementia chronically. During the interview, the patient did open her eyes. When asked if she had pain and she had whispered no . Otherwise, no other information was able to be obtained. In terms of her labs, she was noted to be chronically anemic with no significant change. VBG showed pCO2 of 47. Her BNP was abnormal as noted above. Urinalysis from today showed negative nitrites and no wbcs. She did have positive marijuana detected in urine toxicology and a negative COVID PCR. Her vital signs have been stable and there does not appear to be any significant hypoxia at any point. She is currently on 1 L, saturating 97%. She was given Haldol, IV Lasix, and albuterol while in the ER for COPD exacerbation. She will be admitted for further management and treatment of acute congestive heart failure and COPD exacerbation. PAST MEDICAL HISTORY: 1. Obstructive sleep apnea, unknown if patient is on CPAP. 2. Coronary artery disease, status post myocardial infarction. 3. Diabetes mellitus. 4. COPD. 5. Hypertension. 6. Osteoarthritis. 7. Bipolar disorder. 8. Dementia. 9. Appendectomy. 10. History of respiratory failure requiring trach and feeding tube. Hospital Course: 1. Congestive heart failure etiology unclear -acute diastolic heart failure exacerbation. She was treated with IV Lasix with significant effect. Her symptoms are better and cumulatively has diuresed 13 L. Lasix has been on hold the last several espino due to rising creatinine but will but discharge with 20 mg daily of oral Lasix. She was getting IV 2o bid in the hospital. Echo showed EF 50 to 55%. Cardiology had advise Aldactone however this is discontinued because of high potassium. 2. SAGAR on CKD-- on admission creatinine was 1.3 up to 1.7 on 10/18 and has come back down to 1.54 as of today. As stated Lasix was on hold for 2 days but will be restarted at discharge and will need repeat labs within a week 3. Chronic obstructive pulmonary disease exacerbation. Initially treated with steroid but is much better and off steroid. 4. Diabetes mellitus. SSI 5. History of coronary artery disease. Continue beta suzette, aspirin and statin. 6. Bipolar disorder. Continue Seroquel 7. Alcohol abuse. She was on CIWA scale with supplemental thiamine and folic acid. No full-blown alcohol withdrawal was witnessed. Dispo:To short term rehab for less than 30 days Time Spent with Patient Time attestation: Total time spent providing and/or coordinating discharge services: Discharge coordination time: Greater than 30 minutes Physical Exam Vital Signs: Vital Signs: Selected Entries 10/20/20 07:41 10/20/20 09:39 Temperature 97.9 F Pulse Rate 85 Blood Pressure 138/62 Pulse Oximetry 98 Body Mass Index 39.4 General: AO X 3, no acute distress Resp: CTA bilateral CVS: S1,S2,RRR GI: +BS, NT, no distention Skin: No rash Neuro: motor grossly intact Psych: appropriate affect DS: Data Data Completed and Pending Labs on day of discharge: Laboratory Tests 10/10/20 10/10/20 10/10/20 08:11 08:11 08:11 WBC 5.5 RBC 3.09 L Hgb 9.8 L Hct 29.6 L MCV 95.8 MCH 31.7 MCHC 33.1 RDW 13.8 Plt Count 316 MPV 8.8 L Immature Gran % (Auto) 0.5 H Neut % (Auto) 71.6 Lymph % (Auto) 16.3 L [place] % (Auto) 8.6 Eos % (Auto) 2.6 Baso % (Auto) 0.4 Lymph # (Auto) 0.9 L [place] # (Auto) 0.5 Eos # (Auto) 0.1 Baso # (Auto) 0.0 Abs Immat Gran (auto) 0.03 Absolute Neuts (auto) 3.9 Absolute Nucleated RBC 0.000 Nucleated RBC % (auto) 0.0 Smear Tech's Comments VBG pH VBG pCO2 VBG pO2 VBG HCO3 VBG O2 Saturation VBG Base Excess Sodium Cancelled Potassium Cancelled Chloride Cancelled Carbon Dioxide Cancelled Anion Gap Cancelled BUN Cancelled Creatinine Cancelled Estim Creat Clear Calc Cancelled Estimated GFR Cancelled POC Glucose Random Glucose Cancelled Calcium Cancelled Total Bilirubin Cancelled AST Cancelled ALT Cancelled Alkaline Phosphatase Cancelled Ammonia 31 Troponin I High Sens B-Natriuretic Peptide Total Protein Cancelled Albumin Cancelled Lipase Cancelled Urine Color Urine Appearance Urine pH Ur Specific [place] Urine Protein Urine Glucose (UA) Urine Ketones Urine Blood Urine Nitrite Ur Leukocyte Esterase Urine RBC Urine WBC Ur Squamous Epith Cells Urine Bacteria Urine Mucus U Random Total Protein Ur Random Sodium Urine Creatinine Urine Opiates Screen Ur Barbiturates Screen Ur Phencyclidine Scrn Ur Amphetamines Screen U Benzodiazepines Scrn Urine Cocaine Screen U Marijuana (THC) Screen Ethyl Alcohol COVID-19 ([facility]) COVID-19 Clin Com 10/10/20 10/10/20 10/10/20 08:11 08:11 08:57 WBC RBC Hgb Hct MCV MCH MCHC RDW Plt Count MPV Immature Gran % (Auto) Neut % (Auto) Lymph % (Auto) [place] % (Auto) Eos % (Auto) Baso % (Auto) Lymph # (Auto) [place] # (Auto) Eos # (Auto) Baso # (Auto) Abs Immat Gran (auto) Absolute Neuts (auto) Absolute Nucleated RBC Nucleated RBC % (auto) Smear Tech's Comments VBG pH VBG pCO2 VBG pO2 VBG HCO3 VBG O2 Saturation VBG Base Excess Sodium 139 Potassium 4.6 Chloride 105 Carbon Dioxide 23 Anion Gap 16 BUN 22 H Creatinine 1.34 Estim Creat Clear Calc 46.2 Estimated GFR 39 POC Glucose Random Glucose 114 Calcium 8.5 D Total Bilirubin 0.6 AST 37 H D ALT 22 Alkaline Phosphatase 98 Ammonia Troponin I High Sens 13.7 B-Natriuretic Peptide Total Protein 6.7 Albumin 3.4 L Lipase Urine Color Urine Appearance Urine pH Ur Specific [place] Urine Protein Urine Glucose (UA) Urine Ketones Urine Blood Urine Nitrite Ur Leukocyte Esterase Urine RBC Urine WBC Ur Squamous Epith Cells Urine Bacteria Urine Mucus U Random Total Protein Ur Random Sodium Urine Creatinine Urine Opiates Screen Ur Barbiturates Screen Ur Phencyclidine Scrn Ur Amphetamines Screen U Benzodiazepines Scrn Urine Cocaine Screen U Marijuana (THC) Screen Ethyl Alcohol Cancelled COVID-19 (ZAKIA) COVID-19 [employer] 10/10/20 10/10/20 10/10/20 08:57 08:57 16:13 WBC RBC Hgb Hct MCV MCH MCHC RDW Plt Count MPV Immature Gran % (Auto) Neut % (Auto) Lymph % (Auto) [place] % (Auto) Eos % (Auto) Baso % (Auto) Lymph # (Auto) [place] # (Auto) Eos # (Auto) Baso # (Auto) Abs Immat Gran (auto) Absolute Neuts (auto) Absolute Nucleated RBC Nucleated RBC % (auto) Smear Tech's Comments VBG pH VBG pCO2 VBG pO2 VBG HCO3 VBG O2 Saturation VBG Base Excess Sodium Potassium Chloride Carbon Dioxide Anion Gap BUN Creatinine Estim Creat Clear Calc Estimated GFR POC Glucose Random Glucose Calcium Total Bilirubin AST ALT Alkaline Phosphatase Ammonia Troponin I High Sens B-Natriuretic Peptide Total Protein Albumin Lipase 22 Urine Color Urine Appearance Urine pH Ur Specific [place] Urine Protein Urine Glucose (UA) Urine Ketones Urine Blood Urine Nitrite Ur Leukocyte Esterase Urine RBC Urine WBC Ur Squamous Epith Cells Urine Bacteria Urine Mucus U Random Total Protein Ur Random Sodium Urine Creatinine Urine Opiates Screen Ur Barbiturates Screen Ur Phencyclidine Scrn Ur Amphetamines Screen U Benzodiazepines Scrn Urine Cocaine Screen U Marijuana (THC) Screen Ethyl Alcohol < 10 COVID-19 (ZAKIA) Negative COVID-19 [employer] See Note 10/11/20 10/11/20 10/11/20 02:02 03:07 04:36 WBC RBC Hgb Hct MCV MCH MCHC RDW Plt Count MPV Immature Gran % (Auto) Neut % (Auto) Lymph % (Auto) [place] % (Auto) Eos % (Auto) Baso % (Auto) Lymph # (Auto) [place] # (Auto) Eos # (Auto) Baso # (Auto) Abs Immat Gran (auto) Absolute Neuts (auto) Absolute Nucleated RBC Nucleated RBC % (auto) Smear Tech's Comments VBG pH VBG pCO2 VBG pO2 VBG HCO3 VBG O2 Saturation VBG Base Excess Sodium Potassium Chloride Carbon Dioxide Anion Gap BUN Creatinine Estim Creat Clear Calc Estimated GFR POC Glucose 128 H Random Glucose Calcium Total Bilirubin AST ALT Alkaline Phosphatase Ammonia Troponin I High Sens 15.8 B-Natriuretic Peptide 3209 H Total Protein Albumin Lipase Urine Color STRAW Urine Appearance HAZY Urine pH 7.0 Ur Specific [place] 1.020 Urine Protein 1+ H Urine Glucose (UA) NEG Urine Ketones 5 Urine Blood 3+ H Urine Nitrite NEG Ur Leukocyte Esterase NEG Urine RBC 76-150 H Urine WBC 0 Ur Squamous Epith Cells TRACE Urine Bacteria NONE Urine Mucus U Random Total Protein Ur Random Sodium Urine Creatinine Urine Opiates Screen Ur Barbiturates Screen Ur Phencyclidine Scrn Ur Amphetamines Screen U Benzodiazepines Scrn Urine Cocaine Screen U Marijuana (THC) Screen Ethyl Alcohol COVID-19 ([facility]AKIA) COVID-19 Clin Com 10/11/20 10/11/20 10/11/20 07:18 09:52 09:52 WBC RBC Hgb Hct MCV MCH MCHC RDW Plt Count MPV Immature Gran % (Auto) Neut % (Auto) Lymph % (Auto) [place] % (Auto) Eos % (Auto) Baso % (Auto) Lymph # (Auto) [place] # (Auto) Eos # (Auto) Baso # (Auto) Abs Immat Gran (auto) Absolute Neuts (auto) Absolute Nucleated RBC Nucleated RBC % (auto) Smear Tech's Comments VBG pH VBG pCO2 VBG pO2 VBG HCO3 VBG O2 Saturation VBG Base Excess Sodium Potassium Chloride Carbon Dioxide Anion Gap BUN Creatinine Estim Creat Clear Calc Estimated GFR POC Glucose 111 Random Glucose Calcium Total Bilirubin AST ALT Alkaline Phosphatase Ammonia Troponin I High Sens B-Natriuretic Peptide Total Protein Albumin Lipase Urine Color Cancelled Urine Appearance Cancelled Urine pH Cancelled Ur Specific [place] Cancelled Urine Protein Cancelled Urine Glucose (UA) Cancelled Urine Ketones Cancelled Urine Blood Cancelled Urine Nitrite Cancelled Ur Leukocyte Esterase Cancelled Urine RBC Urine WBC Ur Squamous Epith Cells Urine Bacteria Urine Mucus U Random Total Protein Ur Random Sodium Urine Creatinine Urine Opiates Screen Not Detected Ur Barbiturates Screen Not Detected Ur Phencyclidine Scrn Not Detected Ur Amphetamines Screen Not Detected U Benzodiazepines Scrn Not Detected Urine Cocaine Screen Not Detected U Marijuana (THC) Screen POSITIVE H Ethyl Alcohol COVID-19 (ZAKIA) COVID-19 [employer] 10/11/20 10/11/20 10/11/20 09:52 10:50 10:50 WBC 5.7 RBC 3.18 L Hgb 10.1 L Hct 30.0 L MCV 94.3 MCH 31.8 MCHC 33.7 RDW 13.7 Plt Count 267 MPV 8.6 L Immature Gran % (Auto) 0.2 Neut % (Auto) 74.0 H Lymph % (Auto) 15.0 L [place] % (Auto) 10.2 Eos % (Auto) 0.2 Baso % (Auto) 0.4 Lymph # (Auto) 0.9 L [place] # (Auto) 0.6 Eos # (Auto) 0.0 Baso # (Auto) 0.0 Abs Immat Gran (auto) 0.01 Absolute Neuts (auto) 4.2 Absolute Nucleated RBC 0.000 Nucleated RBC % (auto) 0.0 Smear Tech's Comments VBG pH 7.42 VBG pCO2 47 VBG pO2 52 VBG HCO3 31 VBG O2 Saturation 82.0 VBG Base Excess 5.9 Sodium 138 Potassium 3.4 D Chloride 103 Carbon Dioxide 28 Anion Gap 10 L BUN 19 H Creatinine 1.32 Estim Creat Clear Calc 46.8 Estimated GFR 40 POC Glucose Random Glucose 231 H D Calcium 7.7 L D Total Bilirubin AST ALT Alkaline Phosphatase Ammonia Troponin I High Sens B-Natriuretic Peptide Total Protein Albumin Lipase Urine Color Urine Appearance Urine pH Ur Specific [place] Urine Protein Urine Glucose (UA) Urine Ketones Urine Blood Urine Nitrite Ur Leukocyte Esterase Urine RBC Urine WBC Ur Squamous Epith Cells Urine Bacteria Urine Mucus U Random Total Protein Ur Random Sodium Urine Creatinine Urine Opiates Screen Ur Barbiturates Screen Ur Phencyclidine Scrn Ur Amphetamines Screen U Benzodiazepines Scrn Urine Cocaine Screen U Marijuana (THC) Screen Ethyl Alcohol COVID-19 ([facility]AKIA) COVID-19 [employer] 10/11/20 10/11/20 10/11/20 16:33 20:30 20:52 WBC RBC Hgb Hct MCV MCH MCHC RDW Plt Count MPV Immature Gran % (Auto) Neut % (Auto) Lymph % (Auto) [place] % (Auto) Eos % (Auto) Baso % (Auto) Lymph # (Auto) [place] # (Auto) Eos # (Auto) Baso # (Auto) Abs Immat Gran (auto) Absolute Neuts (auto) Absolute Nucleated RBC Nucleated RBC % (auto) Smear Tech's Comments VBG pH VBG pCO2 VBG pO2 VBG HCO3 VBG O2 Saturation VBG Base Excess Sodium Potassium Chloride Carbon Dioxide Anion Gap BUN Creatinine Estim Creat Clear Calc Estimated GFR POC Glucose 185 H 172 H Random Glucose Calcium Total Bilirubin AST ALT Alkaline Phosphatase Ammonia Troponin I High Sens 9.6 B-Natriuretic Peptide Total Protein Albumin Lipase Urine Color Urine Appearance Urine pH Ur Specific [place] Urine Protein Urine Glucose (UA) Urine Ketones Urine Blood Urine Nitrite Ur Leukocyte Esterase Urine RBC Urine WBC Ur Squamous Epith Cells Urine Bacteria Urine Mucus U Random Total Protein Ur Random Sodium Urine Creatinine Urine Opiates Screen Ur Barbiturates Screen Ur Phencyclidine Scrn Ur Amphetamines Screen U Benzodiazepines Scrn Urine Cocaine Screen U Marijuana (THC) Screen Ethyl Alcohol COVID-19 ([facility]AKIA) COVID-19 Clin Com 10/12/20 10/12/20 10/12/20 06:40 06:40 06:40 WBC 5.0 RBC 3.28 L Hgb 10.3 L Hct 30.2 L MCV 92.1 MCH 31.4 MCHC 34.1 RDW 13.4 Plt Count 290 MPV 8.9 L Immature Gran % (Auto) 0.6 H Neut % (Auto) 86.7 H Lymph % (Auto) 10.3 L [place] % (Auto) 2.4 Eos % (Auto) 0.0 Baso % (Auto) 0.0 Lymph # (Auto) 0.5 L [place] # (Auto) 0.1 Eos # (Auto) 0.0 Baso # (Auto) 0.0 Abs Immat Gran (auto) 0.03 Absolute Neuts (auto) 4.4 Absolute Nucleated RBC 0.000 Nucleated RBC % (auto) 0.0 Smear Tech's Comments VERIFIED VBG pH VBG pCO2 VBG pO2 VBG HCO3 VBG O2 Saturation VBG Base Excess Sodium 135 Potassium 4.3 D Chloride 98 Carbon Dioxide 26 Anion Gap 15 BUN 28 H Creatinine 1.51 H Estim Creat Clear Calc 41.0 Estimated GFR 34 POC Glucose Random Glucose 157 H Calcium 9.0 D Total Bilirubin AST ALT Alkaline Phosphatase Ammonia Troponin I High Sens B-Natriuretic Peptide 2394 H Total Protein Albumin Lipase Urine Color Urine Appearance Urine pH Ur Specific [place] Urine Protein Urine Glucose (UA) Urine Ketones Urine Blood Urine Nitrite Ur Leukocyte Esterase Urine RBC Urine WBC Ur Squamous Epith Cells Urine Bacteria Urine Mucus U Random Total Protein Ur Random Sodium Urine Creatinine Urine Opiates Screen Ur Barbiturates Screen Ur Phencyclidine Scrn Ur Amphetamines Screen U Benzodiazepines Scrn Urine Cocaine Screen U Marijuana (THC) Screen Ethyl Alcohol COVID-19 (ZAKIA) COVID-19 [employer] 10/12/20 10/12/20 10/12/20 06:40 08:16 11:22 WBC RBC Hgb Hct MCV MCH MCHC RDW Plt Count MPV Immature Gran % (Auto) Neut % (Auto) Lymph % (Auto) [place] % (Auto) Eos % (Auto) Baso % (Auto) Lymph # (Auto) [place] # (Auto) Eos # (Auto) Baso # (Auto) Abs Immat Gran (auto) Absolute Neuts (auto) Absolute Nucleated RBC Nucleated RBC % (auto) Smear Tech's Comments VBG pH VBG pCO2 VBG pO2 VBG HCO3 VBG O2 Saturation VBG Base Excess Sodium Potassium Chloride Carbon Dioxide Anion Gap BUN Creatinine Estim Creat Clear Calc Estimated GFR POC Glucose 159 H 151 H Random Glucose Calcium Total Bilirubin AST ALT Alkaline Phosphatase Ammonia 32 Troponin I High Sens B-Natriuretic Peptide Total Protein Albumin Lipase Urine Color Urine Appearance Urine pH Ur Specific [place] Urine Protein Urine Glucose (UA) Urine Ketones Urine Blood Urine Nitrite Ur Leukocyte Esterase Urine RBC Urine WBC Ur Squamous Epith Cells Urine Bacteria Urine Mucus U Random Total Protein Ur Random Sodium Urine Creatinine Urine Opiates Screen Ur Barbiturates Screen Ur Phencyclidine Scrn Ur Amphetamines Screen U Benzodiazepines Scrn Urine Cocaine Screen U Marijuana (THC) Screen Ethyl Alcohol COVID-19 (ZAKIA) COVID-19 [employer] 10/12/20 10/12/20 10/13/20 17:41 20:03 05:45 WBC RBC Hgb Hct MCV MCH MCHC RDW Plt Count MPV Immature Gran % (Auto) Neut % (Auto) Lymph % (Auto) [place] % (Auto) Eos % (Auto) Baso % (Auto) Lymph # (Auto) [place] # (Auto) Eos # (Auto) Baso # (Auto) Abs Immat Gran (auto) Absolute Neuts (auto) Absolute Nucleated RBC Nucleated RBC % (auto) Smear Tech's Comments VBG pH VBG pCO2 VBG pO2 VBG HCO3 VBG O2 Saturation VBG Base Excess Sodium 137 Potassium 4.0 Chloride 100 Carbon Dioxide 24 Anion Gap 17 BUN 49 H D Creatinine 1.75 H Estim Creat Clear Calc 35.4 Estimated GFR 29 POC Glucose 218 H 136 H Random Glucose 100 D Calcium 8.4 D Total Bilirubin AST ALT Alkaline Phosphatase Ammonia Troponin I High Sens B-Natriuretic Peptide Total Protein Albumin Lipase Urine Color Urine Appearance Urine pH Ur Specific [place] Urine Protein Urine Glucose (UA) Urine Ketones Urine Blood Urine Nitrite Ur Leukocyte Esterase Urine RBC Urine WBC Ur Squamous Epith Cells Urine Bacteria Urine Mucus U Random Total Protein Ur Random Sodium Urine Creatinine Urine Opiates Screen Ur Barbiturates Screen Ur Phencyclidine Scrn Ur Amphetamines Screen U Benzodiazepines Scrn Urine Cocaine Screen U Marijuana (THC) Screen Ethyl Alcohol COVID-19 (ZAKIA) [email or web address] 10/13/20 10/13/20 10/13/20 07:22 10:53 16:10 WBC RBC Hgb Hct MCV MCH MCHC RDW Plt Count MPV Immature Gran % (Auto) Neut % (Auto) Lymph % (Auto) [place] % (Auto) Eos % (Auto) Baso % (Auto) Lymph # (Auto) [place] # (Auto) Eos # (Auto) Baso # (Auto) Abs Immat Gran (auto) Absolute Neuts (auto) Absolute Nucleated RBC Nucleated RBC % (auto) Smear Tech's Comments VBG pH VBG pCO2 VBG pO2 VBG HCO3 VBG O2 Saturation VBG Base Excess Sodium Potassium Chloride Carbon Dioxide Anion Gap BUN Creatinine Estim Creat Clear Calc Estimated GFR POC Glucose 105 148 H 250 H Random Glucose Calcium Total Bilirubin AST ALT Alkaline Phosphatase Ammonia Troponin I High Sens B-Natriuretic Peptide Total Protein Albumin Lipase Urine Color Urine Appearance Urine pH Ur Specific [place] Urine Protein Urine Glucose (UA) Urine Ketones Urine Blood Urine Nitrite Ur Leukocyte Esterase Urine RBC Urine WBC Ur Squamous Epith Cells Urine Bacteria Urine Mucus U Random Total Protein Ur Random Sodium Urine Creatinine Urine Opiates Screen Ur Barbiturates Screen Ur Phencyclidine Scrn Ur Amphetamines Screen U Benzodiazepines Scrn Urine Cocaine Screen U Marijuana (THC) Screen Ethyl Alcohol COVID-19 (ZAKIA) [employer] 10/13/20 10/13/20 10/13/20 19:37 20:36 23:56 WBC RBC Hgb Hct MCV MCH MCHC RDW Plt Count MPV Immature Gran % (Auto) Neut % (Auto) Lymph % (Auto) [place] % (Auto) Eos % (Auto) Baso % (Auto) Lymph # (Auto) [place] # (Auto) Eos # (Auto) Baso # (Auto) Abs Immat Gran (auto) Absolute Neuts (auto) Absolute Nucleated RBC Nucleated RBC % (auto) Smear Tech's Comments VBG pH VBG pCO2 VBG pO2 VBG HCO3 VBG O2 Saturation VBG Base Excess Sodium Potassium Chloride Carbon Dioxide Anion Gap BUN Creatinine Estim Creat Clear Calc Estimated GFR POC Glucose 82 167 H Random Glucose Calcium Total Bilirubin AST ALT Alkaline Phosphatase Ammonia Troponin I High Sens B-Natriuretic Peptide Total Protein Albumin Lipase Urine Color YELLOW Urine Appearance CLEAR Urine pH 5.5 Ur Specific [place] 1.015 Urine Protein NEG Urine Glucose (UA) NEG Urine Ketones NEG Urine Blood 3+ H Urine Nitrite NEG Ur Leukocyte Esterase TRACE H Urine RBC 10-14 H Urine WBC 10-14 H Ur Squamous Epith Cells 2+ Urine Bacteria 1+ Urine Mucus 2+ U Random Total Protein Ur Random Sodium Urine Creatinine Urine Opiates Screen Ur Barbiturates Screen Ur Phencyclidine Scrn Ur Amphetamines Screen U Benzodiazepines Scrn Urine Cocaine Screen U Marijuana (THC) Screen Ethyl Alcohol COVID-19 ([facility]) COVID-19 [facility] 10/13/20 10/13/20 10/13/20 23:56 23:56 23:56 WBC RBC Hgb Hct MCV MCH MCHC RDW Plt Count MPV Immature Gran % (Auto) Neut % (Auto) Lymph % (Auto) [place] % (Auto) Eos % (Auto) Baso % (Auto) Lymph # (Auto) [place] # (Auto) Eos # (Auto) Baso # (Auto) Abs Immat Gran (auto) Absolute Neuts (auto) Absolute Nucleated RBC Nucleated RBC % (auto) Smear Tech's Comments VBG pH VBG pCO2 VBG pO2 VBG HCO3 VBG O2 Saturation VBG Base Excess Sodium Potassium Chloride Carbon Dioxide Anion Gap BUN Creatinine Estim Creat Clear Calc Estimated GFR POC Glucose Random Glucose Calcium Total Bilirubin AST ALT Alkaline Phosphatase Ammonia Troponin I High Sens B-Natriuretic Peptide Total Protein Albumin Lipase Urine Color Urine Appearance Urine pH Ur Specific [place] Urine Protein Urine Glucose (UA) Urine Ketones Urine Blood Urine Nitrite Ur Leukocyte Esterase Urine RBC Urine WBC Ur Squamous Epith Cells Urine Bacteria Urine Mucus U Random Total Protein 16 H Ur Random Sodium 30.0 Urine Creatinine 35.99 Cancelled Urine Opiates Screen Ur Barbiturates Screen Ur Phencyclidine Scrn Ur Amphetamines Screen U Benzodiazepines Scrn Urine Cocaine Screen U Marijuana (THC) Screen Ethyl Alcohol COVID-19 ([facility]AKIA) COVID-19 [employer] 10/14/20 10/14/20 10/14/20 05:25 07:09 10:57 WBC RBC Hgb Hct MCV MCH MCHC RDW Plt Count MPV Immature Gran % (Auto) Neut % (Auto) Lymph % (Auto) [place] % (Auto) Eos % (Auto) Baso % (Auto) Lymph # (Auto) [place] # (Auto) Eos # (Auto) Baso # (Auto) Abs Immat Gran (auto) Absolute Neuts (auto) Absolute Nucleated RBC Nucleated RBC % (auto) Smear Tech's Comments VBG pH VBG pCO2 VBG pO2 VBG HCO3 VBG O2 Saturation VBG Base Excess Sodium 138 Potassium 4.4 Chloride 102 Carbon Dioxide 26 Anion Gap 14 BUN 56 H Creatinine 1.64 H Estim Creat Clear Calc 37.7 Estimated GFR 31 POC Glucose 79 97 Random Glucose 67 Calcium 8.1 L Total Bilirubin AST ALT Alkaline Phosphatase Ammonia Troponin I High Sens B-Natriuretic Peptide Total Protein Albumin Lipase Urine Color Urine Appearance Urine pH Ur Specific [place] Urine Protein Urine Glucose (UA) Urine Ketones Urine Blood Urine Nitrite Ur Leukocyte Esterase Urine RBC Urine WBC Ur Squamous Epith Cells Urine Bacteria Urine Mucus U Random Total Protein Ur Random Sodium Urine Creatinine Urine Opiates Screen Ur Barbiturates Screen Ur Phencyclidine Scrn Ur Amphetamines Screen U Benzodiazepines Scrn Urine Cocaine Screen U Marijuana (THC) Screen Ethyl Alcohol COVID-19 (ZAKIA) COVID-19 [employer] 10/14/20 10/14/20 10/15/20 16:06 20:24 05:25 WBC RBC Hgb Hct MCV MCH MCHC RDW Plt Count MPV Immature Gran % (Auto) Neut % (Auto) Lymph % (Auto) [place] % (Auto) Eos % (Auto) Baso % (Auto) Lymph # (Auto) [place] # (Auto) Eos # (Auto) Baso # (Auto) Abs Immat Gran (auto) Absolute Neuts (auto) Absolute Nucleated RBC Nucleated RBC % (auto) Smear Tech's Comments VBG pH VBG pCO2 VBG pO2 VBG HCO3 VBG O2 Saturation VBG Base Excess Sodium 134 L Potassium 5.3 H D Chloride 101 Carbon Dioxide 24 Anion Gap 14 BUN 65 H Creatinine 1.73 H Estim Creat Clear Calc 35.8 Estimated GFR 29 POC Glucose 112 128 H Random Glucose 118 H D Calcium 8.0 L Total Bilirubin AST ALT Alkaline Phosphatase Ammonia Troponin I High Sens B-Natriuretic Peptide Total Protein Albumin Lipase Urine Color Urine Appearance Urine pH Ur Specific [place] Urine Protein Urine Glucose (UA) Urine Ketones Urine Blood Urine Nitrite Ur Leukocyte Esterase Urine RBC Urine WBC Ur Squamous Epith Cells Urine Bacteria Urine Mucus U Random Total Protein Ur Random Sodium Urine Creatinine Urine Opiates Screen Ur Barbiturates Screen Ur Phencyclidine Scrn Ur Amphetamines Screen U Benzodiazepines Scrn Urine Cocaine Screen U Marijuana (THC) Screen Ethyl Alcohol COVID-19 (ZAKIA) COVID-19 [employer] 10/15/20 10/15/20 10/15/20 07:23 11:35 16:15 WBC RBC Hgb Hct MCV MCH MCHC RDW Plt Count MPV Immature Gran % (Auto) Neut % (Auto) Lymph % (Auto) [place] % (Auto) Eos % (Auto) Baso % (Auto) Lymph # (Auto) [place] # (Auto) Eos # (Auto) Baso # (Auto) Abs Immat Gran (auto) Absolute Neuts (auto) Absolute Nucleated RBC Nucleated RBC % (auto) Smear Tech's Comments VBG pH VBG pCO2 VBG pO2 VBG HCO3 VBG O2 Saturation VBG Base Excess Sodium Potassium Chloride Carbon Dioxide Anion Gap BUN Creatinine Estim Creat Clear Calc Estimated GFR POC Glucose 95 125 H 167 H Random Glucose Calcium Total Bilirubin AST ALT Alkaline Phosphatase Ammonia Troponin I High Sens B-Natriuretic Peptide Total Protein Albumin Lipase Urine Color Urine Appearance Urine pH Ur Specific [place] Urine Protein Urine Glucose (UA) Urine Ketones Urine Blood Urine Nitrite Ur Leukocyte Esterase Urine RBC Urine WBC Ur Squamous Epith Cells Urine Bacteria Urine Mucus U Random Total Protein Ur Random Sodium Urine Creatinine Urine Opiates Screen Ur Barbiturates Screen Ur Phencyclidine Scrn Ur Amphetamines Screen U Benzodiazepines Scrn Urine Cocaine Screen U Marijuana (THC) Screen Ethyl Alcohol COVID-19 (ZAKIA) COVID-19 [employer] 10/15/20 10/16/20 10/16/20 20:32 05:33 07:06 WBC RBC Hgb Hct MCV MCH MCHC RDW Plt Count MPV Immature Gran % (Auto) Neut % (Auto) Lymph % (Auto) [place] % (Auto) Eos % (Auto) Baso % (Auto) Lymph # (Auto) [place] # (Auto) Eos # (Auto) Baso # (Auto) Abs Immat Gran (auto) Absolute Neuts (auto) Absolute Nucleated RBC Nucleated RBC % (auto) Smear Tech's Comments VBG pH VBG pCO2 VBG pO2 VBG HCO3 VBG O2 Saturation VBG Base Excess Sodium 138 Potassium 4.7 Chloride 104 Carbon Dioxide 27 Anion Gap 12 BUN 54 H Creatinine 1.52 H Estim Creat Clear Calc 40.7 Estimated GFR 34 POC Glucose 120 H 128 H Random Glucose 110 Calcium 8.4 Total Bilirubin AST ALT Alkaline Phosphatase Ammonia Troponin I High Sens B-Natriuretic Peptide Total Protein Albumin Lipase Urine Color Urine Appearance Urine pH Ur Specific [place] Urine Protein Urine Glucose (UA) Urine Ketones Urine Blood Urine Nitrite Ur Leukocyte Esterase Urine RBC Urine WBC Ur Squamous Epith Cells Urine Bacteria Urine Mucus U Random Total Protein Ur Random Sodium Urine Creatinine Urine Opiates Screen Ur Barbiturates Screen Ur Phencyclidine Scrn Ur Amphetamines Screen U Benzodiazepines Scrn Urine Cocaine Screen U Marijuana (THC) Screen Ethyl Alcohol COVID-19 (ZAKIA) COVID-19 [facility] 10/16/20 10/16/20 10/16/20 11:11 16:11 20:16 WBC RBC Hgb Hct MCV MCH MCHC RDW Plt Count MPV Immature Gran % (Auto) Neut % (Auto) Lymph % (Auto) [place] % (Auto) Eos % (Auto) Baso % (Auto) Lymph # (Auto) [place] # (Auto) Eos # (Auto) Baso # (Auto) Abs Immat Gran (auto) Absolute Neuts (auto) Absolute Nucleated RBC Nucleated RBC % (auto) Smear Tech's Comments VBG pH VBG pCO2 VBG pO2 VBG HCO3 VBG O2 Saturation VBG Base Excess Sodium Potassium Chloride Carbon Dioxide Anion Gap BUN Creatinine Estim Creat Clear Calc Estimated GFR POC Glucose 135 H 114 157 H Random Glucose Calcium Total Bilirubin AST ALT Alkaline Phosphatase Ammonia Troponin I High Sens B-Natriuretic Peptide Total Protein Albumin Lipase Urine Color Urine Appearance Urine pH Ur Specific [place] Urine Protein Urine Glucose (UA) Urine Ketones Urine Blood Urine Nitrite Ur Leukocyte Esterase Urine RBC Urine WBC Ur Squamous Epith Cells Urine Bacteria Urine Mucus U Random Total Protein Ur Random Sodium Urine Creatinine Urine Opiates Screen Ur Barbiturates Screen Ur Phencyclidine Scrn Ur Amphetamines Screen U Benzodiazepines Scrn Urine Cocaine Screen U Marijuana (THC) Screen Ethyl Alcohol COVID-19 (ZAKIA) COVID-19 [employer] 10/17/20 10/17/20 10/17/20 07:03 08:21 11:06 WBC RBC Hgb Hct MCV MCH MCHC RDW Plt Count MPV Immature Gran % (Auto) Neut % (Auto) Lymph % (Auto) [place] % (Auto) Eos % (Auto) Baso % (Auto) Lymph # (Auto) [place] # (Auto) Eos # (Auto) Baso # (Auto) Abs Immat Gran (auto) Absolute Neuts (auto) Absolute Nucleated RBC Nucleated RBC % (auto) Smear Tech's Comments VBG pH VBG pCO2 VBG pO2 VBG HCO3 VBG O2 Saturation VBG Base Excess Sodium 135 Potassium 5.1 Chloride 102 Carbon Dioxide 26 Anion Gap 12 BUN 43 H Creatinine 1.77 H Estim Creat Clear Calc 34.9 Estimated GFR 29 POC Glucose 179 H 174 H Random Glucose 135 H Calcium 8.6 Total Bilirubin AST ALT Alkaline Phosphatase Ammonia Troponin I High Sens B-Natriuretic Peptide Total Protein Albumin Lipase Urine Color Urine Appearance Urine pH Ur Specific [place] Urine Protein Urine Glucose (UA) Urine Ketones Urine Blood Urine Nitrite Ur Leukocyte Esterase Urine RBC Urine WBC Ur Squamous Epith Cells Urine Bacteria Urine Mucus U Random Total Protein Ur Random Sodium Urine Creatinine Urine Opiates Screen Ur Barbiturates Screen Ur Phencyclidine Scrn Ur Amphetamines Screen U Benzodiazepines Scrn Urine Cocaine Screen U Marijuana (THC) Screen Ethyl Alcohol COVID-19 (ZAKIA) COVID-19 [employer] 10/17/20 10/17/20 10/18/20 16:11 20:14 05:36 WBC RBC Hgb Hct MCV MCH MCHC RDW Plt Count MPV Immature Gran % (Auto) Neut % (Auto) Lymph % (Auto) [place] % (Auto) Eos % (Auto) Baso % (Auto) Lymph # (Auto) [place] # (Auto) Eos # (Auto) Baso # (Auto) Abs Immat Gran (auto) Absolute Neuts (auto) Absolute Nucleated RBC Nucleated RBC % (auto) Smear Tech's Comments VBG pH VBG pCO2 VBG pO2 VBG HCO3 VBG O2 Saturation VBG Base Excess Sodium 139 Potassium 5.5 H Chloride 105 Carbon Dioxide 25 Anion Gap 15 BUN 43 H Creatinine 1.70 H Estim Creat Clear Calc 36.4 Estimated GFR 30 POC Glucose 135 H 139 H Random Glucose 118 H Calcium 8.8 Total Bilirubin AST ALT Alkaline Phosphatase Ammonia Troponin I High Sens B-Natriuretic Peptide Total Protein Albumin Lipase Urine Color Urine Appearance Urine pH Ur Specific [place] Urine Protein Urine Glucose (UA) Urine Ketones Urine Blood Urine Nitrite Ur Leukocyte Esterase Urine RBC Urine WBC Ur Squamous Epith Cells Urine Bacteria Urine Mucus U Random Total Protein Ur Random Sodium Urine Creatinine Urine Opiates Screen Ur Barbiturates Screen Ur Phencyclidine Scrn Ur Amphetamines Screen U Benzodiazepines Scrn Urine Cocaine Screen U Marijuana (THC) Screen Ethyl Alcohol COVID-19 (ZAKIA) COVID-19 [employer] 10/18/20 10/18/20 10/18/20 07:44 11:19 16:03 WBC RBC Hgb Hct MCV MCH MCHC RDW Plt Count MPV Immature Gran % (Auto) Neut % (Auto) Lymph % (Auto) [place] % (Auto) Eos % (Auto) Baso % (Auto) Lymph # (Auto) [place] # (Auto) Eos # (Auto) Baso # (Auto) Abs Immat Gran (auto) Absolute Neuts (auto) Absolute Nucleated RBC Nucleated RBC % (auto) Smear Tech's Comments VBG pH VBG pCO2 VBG pO2 VBG HCO3 VBG O2 Saturation VBG Base Excess Sodium Potassium Chloride Carbon Dioxide Anion Gap BUN Creatinine Estim Creat Clear Calc Estimated GFR POC Glucose 123 H 150 H 144 H Random Glucose Calcium Total Bilirubin AST ALT Alkaline Phosphatase Ammonia Troponin I High Sens B-Natriuretic Peptide Total Protein Albumin Lipase Urine Color Urine Appearance Urine pH Ur Specific [place] Urine Protein Urine Glucose (UA) Urine Ketones Urine Blood Urine Nitrite Ur Leukocyte Esterase Urine RBC Urine WBC Ur Squamous Epith Cells Urine Bacteria Urine Mucus U Random Total Protein Ur Random Sodium Urine Creatinine Urine Opiates Screen Ur Barbiturates Screen Ur Phencyclidine Scrn Ur Amphetamines Screen U Benzodiazepines Scrn Urine Cocaine Screen U Marijuana (THC) Screen Ethyl Alcohol COVID-19 (ZAKIA) [employer] 10/18/20 10/18/20 10/19/20 18:23 19:31 07:32 WBC RBC Hgb Hct MCV MCH MCHC RDW Plt Count MPV Immature Gran % (Auto) Neut % (Auto) Lymph % (Auto) [place] % (Auto) Eos % (Auto) Baso % (Auto) Lymph # (Auto) [place] # (Auto) Eos # (Auto) Baso # (Auto) Abs Immat Gran (auto) Absolute Neuts (auto) Absolute Nucleated RBC Nucleated RBC % (auto) Smear Tech's Comments VBG pH VBG pCO2 VBG pO2 VBG HCO3 VBG O2 Saturation VBG Base Excess Sodium 136 Potassium 5.5 H Chloride 104 Carbon Dioxide 22 Anion Gap 16 BUN Creatinine Estim Creat Clear Calc Estimated GFR POC Glucose 167 H 284 H Random Glucose Calcium Total Bilirubin AST ALT Alkaline Phosphatase Ammonia Troponin I High Sens B-Natriuretic Peptide Total Protein Albumin Lipase Urine Color Urine Appearance Urine pH Ur Specific [place] Urine Protein Urine Glucose (UA) Urine Ketones Urine Blood Urine Nitrite Ur Leukocyte Esterase Urine RBC Urine WBC Ur Squamous Epith Cells Urine Bacteria Urine Mucus U Random Total Protein Ur Random Sodium Urine Creatinine Urine Opiates Screen Ur Barbiturates Screen Ur Phencyclidine Scrn Ur Amphetamines Screen U Benzodiazepines Scrn Urine Cocaine Screen U Marijuana (THC) Screen Ethyl Alcohol COVID-19 (ZAKIA) [employer] 10/19/20 10/19/20 08:49 10:02 WBC RBC Hgb Hct MCV MCH MCHC RDW Plt Count MPV Immature Gran % (Auto) Neut % (Auto) Lymph % (Auto) [place] % (Auto) Eos % (Auto) Baso % (Auto) Lymph # (Auto) [place] # (Auto) Eos # (Auto) Baso # (Auto) Abs Immat Gran (auto) Absolute Neuts (auto) Absolute Nucleated RBC Nucleated RBC % (auto) Smear Tech's Comments VBG pH VBG pCO2 VBG pO2 VBG HCO3 VBG O2 Saturation VBG Base Excess Sodium Cancelled 138 Potassium Cancelled 4.6 Chloride Cancelled 104 Carbon Dioxide Cancelled 27 Anion Gap Cancelled 12 BUN Cancelled 30 H Creatinine Cancelled 1.54 H Estim Creat Clear Calc Cancelled 40.1 Estimated GFR Cancelled 34 POC Glucose Random Glucose Cancelled 107 Calcium Cancelled 8.6 Total Bilirubin AST ALT Alkaline Phosphatase Ammonia Troponin I High Sens B-Natriuretic Peptide Total Protein Albumin Lipase Urine Color Urine Appearance Urine pH Ur Specific [place] Urine Protein Urine Glucose (UA) Urine Ketones Urine Blood Urine Nitrite Ur Leukocyte Esterase Urine RBC Urine WBC Ur Squamous Epith Cells Urine Bacteria Urine Mucus U Random Total Protein Ur Random Sodium Urine Creatinine Urine Opiates Screen Ur Barbiturates Screen Ur Phencyclidine Scrn Ur Amphetamines Screen U Benzodiazepines Scrn Urine Cocaine Screen U Marijuana (THC) Screen Ethyl Alcohol COVID-19 (ZAKIA) [employer] Discharge Plan Discharge Anticipated Discharge Date/Time: 10/19/20 12:07 Patient Disposition: er [facility] Referrals: Physician,Unknown [Primary Care Provider] - Discharge Medications: New furosemide [Lasix] 20 mg tablet 20 mg PO QAM Qty: 30 RF: 0 Continued ipratropium-albuterol 0.5 mg-3 mg(2.5 mg base)/3 mL solution for nebulization 1 amp inhalation QID RF: 0 citalopram 40 mg tablet 40 mg PO QAM RF: 0 aspirin 81 mg tablet,delayed release (DR/EC) 1 tab PO BEDTIME RF: 0 montelukast 10 mg tablet 10 mg PO DAILY RF: 0 Flovent HFA 220 mcg/actuation HFA aerosol inhaler 1 puff inhalation BID RF: 0 albuterol sulfate [Ventolin HFA] 90 mcg/actuation HFA aerosol inhaler 2 puff inhalation Q4-6H PRN (Reason: Shortness Of Breath Or Wheezing) RF: 0 thiamine HCl (vitamin B1) 100 mg Tablet 100 mg PO DAILY Qty: 30 RF: 0 folic acid 1 mg Tablet 1 mg PO DAILY Qty: 30 RF: 0 insulin lispro [Humalog U-100 Insulin] 100 unit/mL Solution 1 sliding scale dose subcut QIDACHS Qty: 10 RF: 0 sennosides [senna] 8.6 mg Tablet 8.6 mg PO BID RF: 0 clonazepam 1 mg Tablet 1 mg PO BID RF: 0 acetaminophen 650 mg Tablet Extended Release 650 mg PO Q12H PRN (Reason: Pain) RF: 0 baclofen 20 mg Tablet 20 mg PO DAILY RF: 0 pravastatin 20 mg Tablet 20 mg PO BEDTIME RF: 0 metoprolol succinate 25 mg Tablet Extended Release 24 Hr 25 mg PO DAILY RF: 0 quetiapine 50 mg Tablet 50 mg PO BID RF: 0 Discharge Orders: Discharge Order (Routine); Ordered 10/20/20 Ordered By: Ramana Valadez Diet: low salt diet Activity on Discharge: As tolerated Stand Alone Forms: Patient Portal Discharge page Care Plan Goals: Control of heart failure and preventing rehospitalization. Health Concerns: Heart failure, chronic kidney disease. Plan of Treatment: Take all medication including Lasix as time prescribed, avoid alcohol.
[2020-10-19 12:06] LABS: Glucose, Whole Blood 67 mg/dL (60-115)
--- NOTE | 2020-10-19 12:24 | PM.PNNEP ---
Subjective Subjective Date of Service: 10/19/20 Principal diagnosis: CHF, chest pain Interval history: Events noted. See and examined Still emotional Physical Exam Vital Signs: Vital Signs: Last Vital Signs Temp 98.2 F 10/19/20 11:52 Pulse 80 10/19/20 11:52 Resp 18 10/19/20 11:52 BP 138/72 10/19/20 11:52 Pulse Ox 100 10/19/20 11:52 Body Mass Index 39.4 Const: General: cooperative Neck: Neck: Yes no JVD Resp: Auscultation: crackles Cardio: Heart sounds: no rubs GI: Auscultation: normal bowel sounds Neuro: Motor exam (neuro): no asterixis Objective Data Labs CBC & Chem 7: 10/12/20 06:40 10/19/20 10:02 Labs: Laboratory Results - last 24 hr 10/18/20 10/18/20 10/18/20 16:03 18:23 19:31 Sodium 136 Potassium 5.5 H Chloride 104 Carbon Dioxide 22 Anion Gap 16 BUN Creatinine Estim Creat Clear Calc Estimated GFR POC Glucose 144 H 167 H Random Glucose Calcium 10/19/20 10/19/20 10/19/20 07:32 08:49 10:02 Sodium Cancelled 138 Potassium Cancelled 4.6 Chloride Cancelled 104 Carbon Dioxide Cancelled 27 Anion Gap Cancelled 12 BUN Cancelled 30 H Creatinine Cancelled 1.54 H Estim Creat Clear Calc Cancelled 40.1 Estimated GFR Cancelled 34 POC Glucose 284 H Random Glucose Cancelled 107 Calcium Cancelled 8.6 10/19/20 11:51 Sodium Potassium Chloride Carbon Dioxide Anion Gap BUN Creatinine Estim Creat Clear Calc Estimated GFR POC Glucose 67 Random Glucose Calcium Microbiology Microbiology Results: Microbiology 10/13/20 00:00 Urine clean catch - Clean Catch Midstream Urine Culture - Final Enterococcus faecalis Assessment & Plan Assessment and plan (1) SAGAR (acute kidney injury): Status: Acute Assessment and Plan: 1. SAGAR: Scr cont to grad imporve but still not back o bsl...ques at new bsl 2. Anemia 3.Vol: will need to r/s diuretics at some point..will reassess tmorrow REC: track UP/renal func; poss r/s diurteics tomorrow; avoid NSAIDs Time Spent With Patient Time: Total time spent is greater than 50% in coordination of care (as documented) at patient's floor/unit and/or counseling patient:
[2020-10-19 13:23] LABS: COVID-19 Test Negative (Negative)
--- NOTE | 2020-10-19 14:26 | MHC.CM.PN ---
Addendum entered by Diamante Stallings 10/20/20 10:41: CM CALLED MIKO BACK AT 1530 ON 10/19/20. HE REPORTED HE HAD SPOKEN TO HIS SON AND HE WOULD BE ABLE TO BRING THE PT TO [facility] ON 10/20/20 BETWEEN 1200 AND 1300 HOURS Original Note: PT IS READY TO DC AND HAS A BED OFFER AT [facility] IN [place], HOWEVER BECAUSE PTS HCP IS INVOKED, HER AGENT MUST GO TO THE FACILITY TO SIGN HER IN. CM ATTEMPTED TO REACH PTS HCP, MIKO AT THE NUMBER ON FILE ([phone]) HOWEVER IT JUST CONTINUES TO RING BUSY. CM LOCATED THE PHONE NUMBER FOR PTS STEP-DAUGHTER, MADI ([phone]) IN PTS PREVIOUS RECORDS AND CONTACTED HER. MADI REPORTS SHE WANTS NOTHING TO DO WITH THE PT OR HER PLANS. SHE REPORTS THE PT IS AN ALCOHOLIC AND HAS BEEN DRINKING AND SMOKING POT FOR 45 YEARS. SHE REPORTS THE PT DOES NOT TAKE HER PSYCH MEDS AND DRINKS WITH HER OTHER MEDS. SHE REPORTS SHE IS MOST ANGRY THAT SHE HAS CALLED ALL OF THE PTS PROVIDERS DURING PREVIOUS ADMISSIONS AND NO ONE SEEMS TO BE HEARING HER CONCERNS BECAUSE THE PT ENDS UP HOME AGAIN. CM EXPLAINED THAT THE NUMBER ON FILE FOR HER FATHER WAS WRONG AND THAT HE IS THE ONE THAT WOULD BE CONTACTED TO DISCUSS PTS DC PLAN. CM ALSO EXPLAINED THAT THE PTS HCP IS STILL INVOKED AND THEREFORE, MIKO WOULD BE THE ONE TO DETERMINE WHETHER OR NOT THE PT RETURNS HOME. MADI PROVIDED A NEW PHONE NUMBER [phone] BUT REPORTED MIKO MAY NOT ANSWER BECAUSE THE PT CALLS HIM CRYING SO FREQUENTLY. SHE REPORTS IF HE DOES NOT ANSWER CM SHOULD CALL HER BACK SO SHE CAN REACH HIM. CM CALLED PTS HCP, MIKO ([phone]) AND INFORMED HIM OF PTS BED OFFER AT [facility]. CM ALSO EXPLAINED HE WOULD NEED TO GO THERE TO SIGN HER CONSENT FORMS. MIKO REPORTS HE DOES NOT DRIVE AND DOES NOT KNOW HOW HE WILL GET THERE TODAY. HE REPORTS HE IS CURRENTLY IN THE [facility] BUT ONCE HE RETURNS HOME HE WILL CONTACT HIS SON TO SEE IF HE CAN DRIVE HIM. HE REPORTS HE MAY NOT BE ABLE TO GET THERE PRIOR TO TOMORROW. CM REQUESTED HE MAKE ARRANGEMENTS TO GET THERE SOON POSSIBLE SINCE THE PT IS CLEARED TO DC. CM WILL CALL MIKO BACK LATER TODAY TO FIND OUT WHEN HE WILL BE ABLE TO SIGN PT IN.
[2020-10-19 16:25] LABS: Glucose, Whole Blood 99 mg/dL (60-115)
--- NOTE | 2020-10-19 17:17 | HO.PM.IMPN ---
Subjective Subjective Date of Service: 10/19/20 Interval History: Seen in f/u for heart failure exacerbation, doing well no sob Physical Exam Vital Signs: Vital Signs: Last Vital Signs Temp 98.3 F 10/19/20 15:47 Pulse 81 10/19/20 15:47 Resp 16 10/19/20 15:47 BP 129/64 10/19/20 15:47 Pulse Ox 100 10/19/20 15:47 Body Mass Index 39.4 General: AO X 2, no acute distress Resp: CTA bilateral CVS: S1,S2,RRR GI: +BS, NT, no distention Skin: No rash Neuro: motor grossly intact Psych: appropriate affect Objective Data Current Medications Generic Name Dose Route Start Last Admin Trade Name Freq PRN Reason Stop Dose Admin Acetaminophen 650 mg 10/11/20 06:14 10/17/20 20:09 Acetaminophen 325 Mg Tablet PO 650 mg Q6H PRN Administration Pain Acetaminophen 650 mg 10/11/20 10:32 Acetaminophen Supp 650 Mg Supp.Rect MS Q6H PRN Pain, Mild (Pain Scale 1-3) Albuterol Sulfate 2 puff 10/11/20 01:54 10/11/20 02:26 Albuterol Sulfate 90 Mcg 8 Gm Inhaler INHALE 2 puff Q4H PRN Administration Shortness Of Breath Or Wheezing Aspirin 81 mg 10/11/20 21:00 10/18/20 20:56 Aspirin Enteric Coated 81 Mg Tablet.Dr PO 81 mg BEDTIME YUMIKO Administration Baclofen 20 mg 10/11/20 09:00 10/19/20 08:01 Baclofen 20 Mg Tablet PO 20 mg DAILY YUMIKO Administration Escitalopram Oxalate 20 mg 10/11/20 09:00 10/19/20 08:02 Escitalopram Oxalate 20 Mg Tablet PO 20 mg DAILY YUMIKO Administration Fluticasone Propionate 1 puff 10/11/20 08:00 10/19/20 08:08 Fluticasone Propionate 250 Mcg Blst.W.Dev INHALE 1 puff RBID YUMIKO Administration Folic Acid 1 mg 10/12/20 09:00 10/19/20 08:01 Folic Acid 1 Mg Tablet PO 1 mg DAILY YUMIKO Administration Heparin Sodium (Porcine) 5,000 unit 10/11/20 13:00 10/19/20 13:54 Heparin Sodium,Porcine 5,000 Unit/Ml Vial SUBCUT 5,000 unit Q12H YUMIKO Administration Insulin Human Lispro 0 unit 10/11/20 07:30 10/19/20 16:32 Insulin Lispro 100 Unit/Ml 3 Ml Vial SUBCUT Not Given QIDACHS [facility] Protocol Metoprolol Succinate 25 mg 10/11/20 09:00 10/19/20 08:02 Metoprolol Succinate Er 25 Mg Tab.Er.24h PO 25 mg DAILY YUMIKO Administration Protocol Montelukast Sodium 10 mg 10/11/20 09:00 10/19/20 08:02 Montelukast Sodium 10 Mg Tablet PO 10 mg DAILY [facility] Administration Morphine Sulfate 2 mg 10/16/20 21:12 10/18/20 20:56 Morphine Sulfate 2 Mg/Ml Cartridge IVPUSH 2 mg Q6H PRN Administration Pain, Mild (Pain Scale 1-3) Omeprazole 20 mg 10/12/20 16:15 10/19/20 06:01 Omeprazole 20 Mg Capsule. PO 20 mg DAILY@0630 [facility] Administration Ondansetron HCl 4 mg 10/11/20 10:32 Ondansetron Hcl 4 Mg/2 Ml Vial IVPUSH Q8H PRN Nausea and Vomiting Pharmacy Consult 1 each 10/10/20 15:10 Consult Rx Perform Med Rec MISCELLANE ONCE PRN Consult order Pravastatin Sodium 20 mg 10/11/20 02:00 10/18/20 20:56 Pravastatin Sodium 20 Mg Tablet PO 20 mg BEDTIME [facility] Administration Quetiapine Fumarate 50 mg 10/11/20 02:00 10/19/20 08:01 Quetiapine Fumarate 50 Mg Tablet PO 50 mg BID [facility] Administration Quetiapine Fumarate 12.5 mg 10/17/20 14:12 Quetiapine Fumarate 25 Mg Tablet PO BID PRN anxiety/restlessness Senna 8.6 mg 10/11/20 09:00 10/19/20 08:02 Sennosides 8.6 Mg Tablet PO 8.6 mg BID [facility] Administration Sodium Chloride 3 ml 10/11/20 16:00 10/19/20 16:31 0.9 % Sodium Chloride Flush 3 Ml Syringe IVFLUSH Not Given QSHIFT [facility] Labs CBC & Chem 7: 10/12/20 06:40 10/19/20 10:02 Microbiology Microbiology Results: Microbiology 10/13/20 00:00 Urine clean catch - Clean Catch Midstream Urine Culture - Final Enterococcus faecalis Assessment and Plan (1) SAGAR (acute kidney injury): Status: Acute (2) CHF exacerbation: Status: Acute (3) Hypoxia: Status: Acute (4) Wernicke encephalopathy: Status: Acute (5) Alcohol use disorder: Status: Acute (6) Altered mental status: Status: Resolved (7) Acute UTI: Status: Resolved (8) Acute metabolic encephalopathy: Status: Resolved (9) Toxic encephalopathy: Status: Resolved (10) Acute hyponatremia: Status: Resolved Assessment and Plan: 65-admitted with congestive heart failure exacerbation 1. Congestive heart failure etiology unclear -acute diastolic heart failure exacerbation. Symptomatically has been treated with IV lasix with good effect and has diuresse 13 liters and is feeling better. Echo showed EF 50 to 55%. Lasix on hold, reassess tomorrow 2. SAGAR on CKD-- Creatinine above baseline so Lasix is being on hold and will be restart if spontaneous diuresis tappers 3. Chronic obstructive pulmonary disease exacerbation. Stable, Of steroids due to elevated BUN, DuoNebs, continue supplemental oxygen. 4. Diabetes mellitus. SSI 5. History of coronary artery disease. Continue beta suzette, aspirin and statin. 6. Bipolar disorder. Continue Seroquel per Psych recommendation 7. Alcohol abuse. Place on CIWA scale. Monitor for any signs of withdrawal. Continue folic acid,on iv thiamine. PT is recommending Short term rehab, arrangment tomorrow (11) Hyponatremia: Status: Resolved
[2020-10-19 18:08] LABS: Anion Gap 14 (12-20); Blood Urea Nitrogen 36 mg/dL (9-16); Carbon Dioxide 26 mmol/L (22-29); Chloride 102 mmol/L (96-108); Creatinine Clr Calc Pharmacy 35.1; Estimated Glomerular Filt Rate 29; Glucose Random 141 mg/dL (60-115); Sodium 137 mmol/L (135-145)
[2020-10-19 20:36] LABS: Glucose, Whole Blood 115 mg/dL (60-115)
[2020-10-19] MEDS: Pravastatin Sodium 20 MG TABLET PO (21:33)
[2020-10-19] MEDS: Aspirin Enteric Coated 81 MG TABLET.DR PO (21:33)
[2020-10-20] MEDS: Heparin Sodium,Porcine 5,000 UNIT/ML VIAL 5000 UNIT SUBCUT
[2020-10-20] MEDS: 0.9 % Sodium Chloride Flush 3 ML SYRINGE IVFLUSH ×2 (00:01→09:39)
[2020-10-20] MEDS: Morphine Sulfate 2 MG/ML CARTRIDGE IVPUSH (00:04)
[2020-10-20 03:24] VITALS: BP 129/98; PULSE 73; RESP 18; TEMP 36.4; O2SAT 96
[2020-10-20] MEDS: Acetaminophen 325 MG TABLET 650 MG PO (03:33)
[2020-10-20] MEDS: Omeprazole 20 MG CAPSULE.DR PO (06:19)
[2020-10-20 07:41] VITALS: BP 138/62; PULSE 85; RESP 20; TEMP 36.6; O2SAT 98
[2020-10-20 07:45] LABS: Glucose, Whole Blood 140 mg/dL (60-115)
[2020-10-20] MEDS: Fluticasone Propionate 250 MCG BLST.W.DEV 1 PUFF INHALE (08:09)
[2020-10-20 08:10] VITALS: PULSE 75; O2SAT 94
[2020-10-20] MEDS: Escitalopram Oxalate 20 MG TABLET PO (09:38)
[2020-10-20] MEDS: QUEtiapine Fumarate 50 MG TABLET PO (09:38)
[2020-10-20] MEDS: Montelukast Sodium 10 MG TABLET PO (09:38)
[2020-10-20 09:39] VITALS: BP 138/62; PULSE 85
[2020-10-20] MEDS: Folic Acid 1 MG TABLET PO (09:39)
[2020-10-20] MEDS: Baclofen 20 MG TABLET PO (09:39)
[2020-10-20] MEDS: Metoprolol Succinate ER 25 MG TAB.ER.24H PO (09:39)
[2020-10-20] MEDS: Sennosides 8.6 MG TABLET PO (09:39)
--- NOTE | 2020-10-20 11:16 | MHC.CM.PN ---
KAMILA CONTACTED PTS HCP/FISUZANNEMIKO ([phone]) WHO CONFIRMS HIS SON IS COMING TO PICK HIM UP AROUND 1130 TO TAKE HIM TO THE SNF TO SIGN PTS CONSENT TO TREAT FORMS. MIKO REPORTS THE PTS CPAP MACHINE IS IN THEIR HOME, CM INFORMED HIM HE MUST BRING IT TO THE SNF. MIKO REPORTS HE WILL BRING THE PTS CPAP, A PAIR OF SHOES, AND PTS CLOTHING TO THE SNF AND SHOULD BE THERE PRIOR TO 1300 HOURS. HE REPORTS HE DOES NOT WANT TO SEE THE PT WHEN HE GOES AND IS CONCERNED THEY WILL ARRIVE AT THE SAME TIME. KAMILA EXPLAINED THE PT WILL NOT BE ARRIVING THERE UNTIL ABOUT 1330 THEREFORE HE SHOULD BE GONE BEFORE SHE GETS THERE. PT WILL DC TO [facility] TODAY AT 1300 HOURS VIA [facility]
[2020-10-20 11:40] LABS: Glucose, Whole Blood 150 mg/dL (60-115)
--- NOTE | 2020-10-20 12:12 | MHC.CM.PN ---
CM received a phone call from the son of pts HCP confirming they were at the facility and pts HCP was signing the necessary documents and had her CPAP with him. Pt will DC to [facility] at 1300 hours via [facility]
== END 2020-10-20 13:53 | disposition skilled nursing facility (03) | DRG 291 ==
LOC: HO.ED 10-11 05:05 → HO.IMC 10-11 11:45
PROVIDERS: Internal Medicine Nephrology; Nurse Practitioner Acute Care; Student in an Organized Health Care Education/Training Program; Admitting Provider Internal Medicine; Emergency Provider Emergency Medicine Emergency Medical Services; PCP Internal Medicine Geriatric Medicine; Visit Provider Internal Medicine
DX: I13.0 Hypertensive heart and chronic kidney disease with heart failure and stage 1 through stage 4 chronic kidney disease, or unspecified chronic kidney disease (principal); G92 Toxic encephalopathy; G93.41 Metabolic encephalopathy; I50.33 Acute on chronic diastolic (congestive) heart failure; J44.1 Chronic obstructive pulmonary disease with (acute) exacerbation; N39.0 Urinary tract infection, site not specified; E87.1 Hypo-osmolality and hyponatremia; N17.9 Acute kidney failure, unspecified; E51.2 Wernicke's encephalopathy; F31.9 Bipolar disorder, unspecified; I25.10 Atherosclerotic heart disease of native coronary artery without angina pectoris; F03.90 Unspecified dementia, unspecified severity, without behavioral disturbance, psychotic disturbance, mood disturbance, and anxiety; E11.22 Type 2 diabetes mellitus with diabetic chronic kidney disease; N18.30 Chronic kidney disease, stage 3 unspecified; D63.1 Anemia in chronic kidney disease; G47.33 Obstructive sleep apnea (adult) (pediatric); F10.10 Alcohol abuse, uncomplicated; Z20.822 Contact with and (suspected) exposure to COVID-19; Z79.4 Long term (current) use of insulin; Z79.82 Long term (current) use of aspirin; Z79.899 Other long term (current) drug therapy
CPT/HCPCS: 36415; 70450; 71045; 71250; 72125; 73502; 73700; 74176; 80048; 80051; 80053; 80307; 80320; 81001; 81003; 82140; 82803; 82947; 83690; 83880; 84156; 84300; 84484; 85025; 85610; 85730; 87086; 87088; 87186; 87635; 93005; 93306; 94640; 97116; 97162; 99285; J1885; J1940; J2270; J2920; J3411; P9047; Q9957

== ENCOUNTER 2020-10-20 14:58 | Emergency (ER) | payer MEDICARE, MEDICAID, SELFPAY ==
[2020-10-20 15:03] VITALS: BP 184/63; PULSE 92; RESP 16; TEMP 37.5; O2SAT 98; BMI 42.5
[2020-10-20] MEDS: LORazepam 1 MG TABLET PO (16:02)
[2020-10-20 16:49] LABS: MANUAL DIFF FLAG NO
[2020-10-20 16:51] LABS: Basophils Percent Auto 0.1 % (0-2); Eosinophils Absolute Auto 0.1 X10*3/uL (0.0-0.4); Eosinophils Percent Auto 1.3 % (0-4); Hematocrit 30.5 % (37-47); Imm Gran Abs Auto 0.03 X10*3/uL (0.00-0.03); Imm Gran Pct Auto 0.4 % (0.0-0.4); Lymphocytes Absolute Auto 1.5 X10*3/uL (1.2-4.9); Lymphocytes Percent Auto 22.1 % (20-40); Mean Corpuscular HGB Conc 32.8 g/dl (31.0-35.0); Mean Corpuscular Hemoglobin 31.5 pg (27.0-33.0); Mean Corpuscular Volume 96.2 fL (80-98); Mean Platelet Volume 9.3 fL (9.4-12.3); Monocytes Absolute Auto 0.9 X10*3/uL (0.1-1.2); Monocytes Percent Auto 12.7 % (2-11); Neutrophils Absolute Auto 4.3 X10*3/uL (2.0-8.3); Neutrophils Percent Auto 63.4 % (45-73); Platelet Count 289 X10*3/uL (160-400); Red Blood Count 3.17 X10*6/uL (4.20-5.50); Red Cell Distribution Width 13.7 % (11.0-16.0); White Blood Count 6.8 X10*3/uL (4.8-10.8)
--- NOTE | 2020-10-20 16:56 | ED.GENADULT ---
HPI - General Adult General Chief complaint: General Medical Stated complaint: refusal to enter rehab snf Time Seen by Provider: 10/20/20 15:11 Source: patient and EMS Mode of arrival: EMS Limitations: no limitations History of Present Illness HPI narrative: 65yoF c PMHx of Dementia, Wernicke encephalopathy, Metabolic encephalopathy, Toxic encephalopathy, Alcohol use disorder, Marijuana usage, Bipolar, Diabetes mellitus, Hypertension, CAD status post myocardial infarction, CHF, Obstructive sleep apnea unknown if patient is on CPAP, COPD, osteoarthritis presenting to the ED via EMS very verbally and physically aggressive attempting to hit the boat canvas maker installer yelling at them ?YOU LIED TO ME , after her healthcare proxy which is her ; signed for the patient to go to [facility] after being discharged from here [facility] for short-term rehab although no one informed the patient about this and this is why she is very upset. She was making SI statements at [facility] that is why they sent her back. Although she denies any SI/HI/auditory visual hallucinations or thoughts of self injury while here in the emergency department. She reports she is just upset that no one told her the plan and that everyone lied to her. She denies any complaints at this time. Related Data Home Medications Medication Instructions Recorded Confirmed Flovent HFA 1 puff INHALATION BID 08/18/20 10/10/20 albuterol sulfate [Ventolin HFA] 2 puff INHALATION Q4-6H PRN 08/18/20 10/10/20 aspirin 1 tab PO BEDTIME 08/18/20 10/10/20 citalopram 40 mg PO QAM 08/18/20 10/10/20 ipratropium-albuterol 1 amp INHALATION QID 08/18/20 10/10/20 montelukast 10 mg PO DAILY 08/18/20 10/11/20 acetaminophen 650 mg PO Q12H PRN 10/10/20 10/10/20 baclofen 20 mg PO DAILY 10/10/20 10/10/20 clonazepam 1 mg PO BID 10/10/20 10/10/20 metoprolol succinate 25 mg PO DAILY 10/10/20 10/10/20 pravastatin 20 mg PO BEDTIME 10/10/20 10/10/20 quetiapine 50 mg PO BID 01/14/21 01/14/21 sennosides [senna] 8.6 mg PO BID 10/10/20 10/10/20 Previous Rx's Medication Instructions Recorded folic acid 1 mg PO DAILY #30 tab 08/28/20 insulin lispro [Humalog U-100 1 sliding scale dose SUBCUT 08/28/20 Insulin] QIDACHS #10 ml thiamine HCl (vitamin B1) 100 mg PO DAILY #30 tab 08/28/20 furosemide [Lasix] 20 mg PO QAM #30 tab 10/19/20 Allergies Allergy/AdvReac Type Severity Reaction Status Date / Time advair Allergy Unknown Unknown Uncoded 10/08/20 20:46 paxil Allergy Unknown Unknown Uncoded 10/08/20 20:46 From PAXIL AdvReac Intermediate NAUSEA & Uncoded 10/08/20 20:46 VOMITING Review of Systems Review of Systems: Constitutional : No Fever, No Chills, No Fatigue, No Malaise ENT/Mouth : No Ear Pain, No Nasal Congestion, No sore throat, No Rhinorrhea, No Swallowing Difficulty Eyes: No Eye Pain, No Swelling, No Redness, No Foreign Body, No Discharge, No Vision Changes Cardiovascular : No Chest Pain, No SOB, No Dyspnea on Exertion, No Orthopnea, No Edema, No Palpitations Respiratory : No Cough, No Sputum, No Wheezing, No Dyspnea Gastrointestinal : No Nausea, No Vomiting, No Diarrhea, No Constipation, No abdominal Pain, No Hematochezia, No Melena Genitourinary : no irregular bleeding, No Dysuria, No Urinary Frequency, No Hematuria, No Urinary Incontinence, No Urgency, No Flank Pain, No Urinary Flow Changes, No Hesitancy Musculoskeletal : No joint pain, No Myalgias, No Joint Swelling Skin : No Skin Lesions, No rash Neuro : No Weakness, No Numbness, No Paresthesias, No Loss of Consciousness, No Dizziness, No Headache Psych : + Socail issues and anxiety, No Depression, No SI/HI/AH/VH Heme/Lymph: No Bruising, No Bleeding,No Lymphadenopathy Endocrine : No Polyuria, No Polydipsia, No Temperature Intolerance Yes all other systems are reviewed and are negative [facility] Past Medical History Attestation statement: The following information was validated with the patient. Medical History Bipolar 1 disorder COPD (chronic obstructive pulmonary disease) Coronary artery disease Diabetes Hypertension Osteoarthritis Sleep apnea Surgical History Hx of appendectomy Social History Social History Household Members: Significant Other Housing: Apartment Alcohol intake: never Smoking Status: Current some day smoker Cigarettes Per Day: 3 Smoked in Last 30 Days: No Use of substances other than those prescribed or required for medical reasons: No Advance Directives: No Advance Directives Information Provided: No service: No Current occupational status: disabled and other Physical Exam Vital Signs: Vital Signs: Last Vital Signs Temp 99.5 F 10/20/20 15:03 Pulse 92 10/20/20 15:03 Resp 16 10/20/20 15:03 BP 184/63 H 10/20/20 15:03 Pulse Ox 98 10/20/20 15:03 Body Mass Index 42.5 vital signs have been reviewed as normal and appeared to be correct. Blood pressure hypertensive. Heart rate normal. Respiration rate normal. Temperature normal. Oxygen saturation normal. Appearance: Alert. Oriented X3. Verbally and physically aggressive on arrival. Very tearful. No acute distress. Head: Normal external exam. Normocephalic. Atraumatic. Eyes: PERRLA. EOMI. Conjunctiva and sclera normal. Eyelids normal. ENT: Pharynx normal. Uvula midline. Moist mucous membranes. Neck: Normal inspection. Neck supple. FROM. No adenopathy. Thyroid Normal. No meningeal signs. No neck mass noted. CVS: Normal heart rate and rhythm. Heart sound normal. No murmurs noted. Pulses normal throughout. Respiratory: No respiratory distress. Painless inspiration. Breath sounds normal. No wheezes/rales/rhonchi noted. Chest nontender. No accessory muscle usage noted or decreased air movement noted. Abdomen: Soft and nontender. Bowel sounds normal in all 4 quadrants. No distention noted. No organomegaly noted. No visible injury noted. Back: Full range of motion noted. Skin: Skin warm and dry. Normal skin color. Normal skin turgor. No rashes/lesions/lacerations noted. Extremities: No lower extremity edema. No calf tenderness noted. Extremities exhibit normal range of motion. Extremities nontender. Neuro: Oriented X 3. No motor deficit. No sensory deficit. Reflexes normal. Psych: Appearance grossly normal, well-kept, mental status baseline, speech and movement normal, speech clear, patient appears very sad, angry, anxious and depressed. Initially she was uncooperative although once I was able to speak to her in [place] she calmed down and is now cooperative. Patient's thought process/thought content/insight is poor and she does not have good judgment. Course Course Course Narrative: 15:14pm - 65yoF c PMHx of Dementia, Wernicke encephalopathy, Metabolic encephalopathy, Toxic encephalopathy, Alcohol use disorder, Marijuana usage, Bipolar, Diabetes mellitus, Hypertension, CAD status post myocardial infarction, CHF, Obstructive sleep apnea unknown if patient is on CPAP, COPD, osteoarthritis presenting to the ED via EMS after being discharged from here after being admitted and treated for SAGAR, CHF, Hypoxia, Wernicke encephalopathy, Alcohol use; Altered mental status, Acute UTI, Acute metabolic encephalopathy, Toxic encephalopathy and Acute hyponatremia on 10/10/2020-10/19/2020 and sent to [facility] for STR although when patient arrived there at [facility] she refused to be there and became very aggressive and started making SI statements therefore she returned here to the emergency department. Although her is her Invoked healthcare proxy at this time. - On arrival patient was still very aggressive attempting to hit the boat canvas maker installer screaming at them very tearful anxious and angry although after a few minutes and speaking to her in [place] I was able to calm her down and she explained to me why she was upset. She reports no one informed her about the decision making and she did not know that her made the decision to Sender to the short-term rehab and she is very upset about this. She denies any additional complaints or concerns. She denies any SI/HI/auditory visual hallucinations while here in the emergency department. Amidst to being very anxious angry and feeling depressed. Otherwise On exam patient is not in any other acute distress. Vital signs are reviewed and patient is noted to be hypertensive otherwise all other vitals appear to be within normal limits. - We attempted to call the patient's although unable to reach the patient's at this time. - Plan: Labs, provide 1 mg of Ativan. Obtain a case management consult for possible placement again then re-evaluate. Patient understands agrees with this plan. Reevaluation(s) Time: 17:53 Medical Decision Making Medical Records Medical records reviewed: Yes I reviewed the patient's medical records. Lab Data Lab results reviewed: Yes I reviewed the patient's lab results. Result diagrams: 10/20/20 16:40 10/20/20 16:40 Labs: Lab Results 10/20/20 10/20/20 10/20/20 Range/Units 16:40 16:40 16:40 WBC 6.8 (4.8-10.8) X10*3/uL RBC 3.17 L (4.20-5.50) X10*6/uL Hgb 10.0 L (12.0-16.0) g/dl Hct 30.5 L (37-47) % MCV 96.2 (80-98) fL MCH 31.5 (27.0-33.0) pg MCHC 32.8 (31.0-35.0) g/dl RDW 13.7 (11.0-16.0) % Plt Count 289 (160-400) X10*3/uL MPV 9.3 L (9.4-12.3) fL Immature Gran % (Auto) 0.4 (0.0-0.4) % Neut % (Auto) 63.4 (45-73) % Lymph % (Auto) 22.1 (20-40) % Peach % (Auto) 12.7 H (2-11) % Eos % (Auto) 1.3 (0-4) % Baso % (Auto) 0.1 (0-2) % Lymph # (Auto) 1.5 (1.2-4.9) X10*3/uL Peach # (Auto) 0.9 (0.1-1.2) X10*3/uL Eos # (Auto) 0.1 (0.0-0.4) X10*3/uL Baso # (Auto) 0.0 (0.0-0.2) X10*3/uL Abs Immat Gran (auto) 0.03 (0.00-0.03) X10*3/uL Absolute Neuts (auto) 4.3 (2.0-8.3) X10*3/uL Absolute Nucleated RBC 0.000 (0.0-0.012) X10*3/uL Nucleated RBC % (auto) 0.0 (0.0-0.2) /100WBC PT 11.3 (10.8-13.0) SEC INR 1.0 (0.9-1.1) Sodium 139 (135-145) mmol/L Potassium 4.9 (3.3-5.1) mmol/l Chloride 101 (96-108) mmol/L Carbon Dioxide 28 (22-29) mmol/L Anion Gap 15 (12-20) BUN 35 H (9-16) mg/dL Creatinine 1.62 H (0.5-1.4) mg/dL Estim Creat Clear Calc 39.9 Estimated GFR 32 Random Glucose 106 (60-115) mg/dL Calcium 8.9 (8.4-10.2) mg/dL Magnesium 1.9 (1.6-2.6) mg/dL Total Bilirubin 0.4 (0.0-1.0) mg/dL Direct Bilirubin 0.2 (0.0-0.5) mg/dL AST 22 D (5-31) U/L ALT 20 (0-31) U/L Alkaline Phosphatase 81 (39-117) U/L B-Natriuretic Peptide (<100) pg/mL Total Protein 6.5 (6.5-8.0) g/dL Albumin 3.6 (3.5-5.0) g/dL 10/20/20 Range/Units 16:40 WBC (4.8-10.8) X10*3/uL RBC (4.20-5.50) X10*6/uL Hgb (12.0-16.0) g/dl Hct (37-47) % MCV (80-98) fL MCH (27.0-33.0) pg MCHC (31.0-35.0) g/dl RDW (11.0-16.0) % Plt Count (160-400) X10*3/uL MPV (9.4-12.3) fL Immature Gran % (Auto) (0.0-0.4) % Neut % (Auto) (45-73) % Lymph % (Auto) (20-40) % Peach % (Auto) (2-11) % Eos % (Auto) (0-4) % Baso % (Auto) (0-2) % Lymph # (Auto) (1.2-4.9) X10*3/uL Peach # (Auto) (0.1-1.2) X10*3/uL Eos # (Auto) (0.0-0.4) X10*3/uL Baso # (Auto) (0.0-0.2) X10*3/uL Abs Immat Gran (auto) (0.00-0.03) X10*3/uL Absolute Neuts (auto) (2.0-8.3) X10*3/uL Absolute Nucleated RBC (0.0-0.012) X10*3/uL Nucleated RBC % (auto) (0.0-0.2) /100WBC PT (10.8-13.0) SEC INR (0.9-1.1) Sodium (135-145) mmol/L Potassium (3.3-5.1) mmol/l Chloride (96-108) mmol/L Carbon Dioxide (22-29) mmol/L Anion Gap (12-20) BUN (9-16) mg/dL Creatinine (0.5-1.4) mg/dL Estim Creat Clear Calc Estimated GFR Random Glucose (60-115) mg/dL Calcium (8.4-10.2) mg/dL Magnesium (1.6-2.6) mg/dL Total Bilirubin (0.0-1.0) mg/dL Direct Bilirubin (0.0-0.5) mg/dL AST (5-31) U/L ALT (0-31) U/L Alkaline Phosphatase (39-117) U/L B-Natriuretic Peptide 183 H (<100) pg/mL Total Protein (6.5-8.0) g/dL Albumin (3.5-5.0) g/dL Discharge Plan Discharge Clinical Impression: Aggressive behavior due to dementia Prescriptions: No Action ipratropium-albuterol 0.5 mg-3 mg(2.5 mg base)/3 mL solution for nebulization 1 amp inhalation QID RF: 0 citalopram 40 mg tablet 40 mg PO QAM RF: 0 aspirin 81 mg tablet,delayed release (DR/EC) 1 tab PO BEDTIME RF: 0 montelukast 10 mg tablet 10 mg PO DAILY RF: 0 Flovent HFA 220 mcg/actuation HFA aerosol inhaler 1 puff inhalation BID RF: 0 albuterol sulfate [Ventolin HFA] 90 mcg/actuation HFA aerosol inhaler 2 puff inhalation Q4-6H PRN (Reason: Shortness Of Breath Or Wheezing) RF: 0 thiamine HCl (vitamin B1) 100 mg Tablet 100 mg PO DAILY Qty: 30 RF: 0 folic acid 1 mg Tablet 1 mg PO DAILY Qty: 30 RF: 0 insulin lispro [Humalog U-100 Insulin] 100 unit/mL Solution 1 sliding scale dose subcut QIDACHS Qty: 10 RF: 0 sennosides [senna] 8.6 mg Tablet 8.6 mg PO BID RF: 0 clonazepam 1 mg Tablet 1 mg PO BID RF: 0 acetaminophen 650 mg Tablet Extended Release 650 mg PO Q12H PRN (Reason: Pain) RF: 0 baclofen 20 mg Tablet 20 mg PO DAILY RF: 0 pravastatin 20 mg Tablet 20 mg PO BEDTIME RF: 0 metoprolol succinate 25 mg Tablet Extended Release 24 Hr 25 mg PO DAILY RF: 0 quetiapine 50 mg Tablet 50 mg PO BID RF: 0 furosemide [Lasix] 20 mg tablet 20 mg PO QAM Qty: 30 RF: 0
[2020-10-20 16:58] LABS: Prothrombin Time 11.3 SEC (10.8-13.0)
[2020-10-20 17:23] LABS: Alanine Aminotransferase 20 U/L (0-31); Albumin Level 3.6 g/dL (3.5-5.0); Alkaline Phosphatase 81 U/L (39-117); Anion Gap 15 (12-20); Aspartate Amino Transferase 22 U/L (5-31); Bilirubin Direct 0.2 mg/dL (0.0-0.5); Bilirubin Total 0.4 mg/dL (0.0-1.0); Blood Urea Nitrogen 35 mg/dL (9-16); Calcium 8.9 mg/dL (8.4-10.2); Carbon Dioxide 28 mmol/L (22-29); Chloride 101 mmol/L (96-108); Creatinine Clr Calc Pharmacy 39.9; Estimated Glomerular Filt Rate 32; Glucose Random 106 mg/dL (60-115); Magnesium 1.9 mg/dL (1.6-2.6); Potassium 4.9 mmol/l (3.3-5.1); Sodium 139 mmol/L (135-145); Total Protein 6.5 g/dL (6.5-8.0)
[2020-10-20 17:29] LABS: B Type Natriuretic Peptide 183 pg/mL (<100)
[2020-10-20 18:47] VITALS: BP 156/72; PULSE 78; RESP 15; TEMP 37.3; O2SAT 98
--- NOTE | 2020-10-20 19:44 | PC.NURSE ---
pt incontinent of urine, completed bed change and timothy care. pt given a warm blanket and legs reposition and elevated with pillow.
--- NOTE | 2020-10-20 21:39 | PC.NURSE ---
Pt ringing her call jones multiple times, assisted onto bed pain, provided timothy care and a complete bed change. Pt assisted into POC, provided with warm blankets, requesting lights dim for comfort. Continue to monitor.
--- NOTE | 2020-10-20 21:47 | PC.NURSE ---
Attempts at obtaining UA unsuccessful at this time. Pt aware of pending order for urine sample.
[2020-10-20 22:24] LABS: Glucose Urine UA NEG (NEG); Leukocyte Esterase Urine TRACE (NEG); Nitrite Urine POS (NEG); PH 6.5 (5.0-8.0); Specific Gravity - Urine 1.015 (1.005-1.025); UACC Culture Trigger YES; Urine Blood 3+ (NEG); Urine Ketones NEG (NEG); Urine Protein NEG (NEG-TRACE)
[2020-10-20 22:32] LABS: Appearance Urine HAZY; Color Urine YELLOW
[2020-10-20 22:39] LABS: Bacteria Urine 4+ /LPF; RBC Urine 30-49 /HPF (0); Squamous Epithelial Cell Urine 1+ /LPF
[2020-10-20 23:04] VITALS: BP 136/60; PULSE 80; RESP 15; TEMP 37.2; O2SAT 100
--- NOTE | 2020-10-20 23:31 | PC.NURSE ---
MD aware of UA, plan for PO ABX.
[2020-10-21] VITALS (7 sets, daily range): BP systolic 150–166; BP diastolic 59–85; PULSE 80–87; RESP 16–20; TEMP 36.9–37.1; O2SAT 94–100
--- NOTE | 2020-10-21 00:11 | PC.NURSE ---
Pt medicated with PO ABX for UTI, per MD Levy, no BCX required. Pt provided with a turkey sandwich and OJ. VSS. Call jones within reach, continue to monitor.
--- NOTE | 2020-10-21 01:02 | PC.NURSE ---
Pt using in the bed harvey, provided with timothy care and a complete bed change. Pt assisted into POC, call jones within reach, continue to monitor.
--- NOTE | 2020-10-21 02:57 | PC.NURSE ---
Pt requesting to use the bed harvey at this time, assisting onto bed harvey, voiding easily. Pt reports some SOB, states she uses a pump at home. Pt assisted into an upright position, O2 sat 97% on RA. Pt reports relief of SOB with positioning. Pt provided with a blanket and lights dim for comfort. Call jones within reach, continue to monitor.
--- NOTE | 2020-10-21 04:40 | PC.NURSE ---
Pt ringing her call jones, requesting to use the bed harvey. Pt states she walks at home but refusing to walk since this RN assumed care. Pt states I'll walk layer, I have a headache. Pt voiding in the bed harvey easily. Pt again reporting SOB, slight expiratory wheezing noted to bilat lobes, satting at 97% on RA. Pt states she uses inhalers at home, requesting a treatment. aware. Pt repositioned in bed, provided with water. Awaiting treatment.
[2020-10-21] MEDS: Albuterol Sulfate 90 MCG 8 GM INHALER 2 PUFF INHALE (05:25)
--- NOTE | 2020-10-21 05:26 | PC.NURSE ---
Pt medicated with inhaler, reports relief. Pt assisted into POC, lights dim per request. Continue to monitor.
--- NOTE | 2020-10-21 11:10 | ED_ITS ---
HPI - General Adult General Chief complaint: General Medical Stated complaint: refusal to enter rehab snf Time Seen by Provider: 10/20/20 15:11 Source: patient and EMS Mode of arrival: EMS Limitations: no limitations Related Data Home Medications Medication Instructions Recorded Confirmed Flovent HFA 1 puff INHALATION BID 08/18/20 10/20/20 albuterol sulfate [Ventolin HFA] 2 puff INHALATION Q4-6H PRN 08/18/20 10/20/20 aspirin 81 mg PO BEDTIME 08/18/20 10/21/20 citalopram 40 mg PO QAM 08/18/20 10/20/20 ipratropium-albuterol 1 amp INHALATION QID PRN 08/18/20 10/20/20 montelukast 10 mg PO QPM 08/18/20 10/21/20 acetaminophen 650 mg PO Q12H PRN 10/10/20 10/20/20 baclofen 20 mg PO DAILY PRN 10/10/20 10/20/20 clonazepam 1 mg PO BID 10/10/20 10/20/20 metoprolol succinate 25 mg PO DAILY 10/10/20 10/20/20 pravastatin 20 mg PO BEDTIME 10/10/20 10/20/20 quetiapine 50 mg PO BID 10/10/20 10/20/20 sennosides [senna] 8.6 mg PO BID 10/10/20 10/20/20 Previous Rx's Medication Instructions Recorded folic acid 1 mg PO DAILY #30 tab 08/28/20 insulin lispro [Humalog U-100 1 sliding scale dose SUBCUT 08/28/20 Insulin] QIDACHS #10 ml thiamine HCl (vitamin B1) 100 mg PO DAILY #30 tab 08/28/20 furosemide [Lasix] 20 mg PO QAM #30 tab 10/19/20 furosemide [Lasix] 20 mg PO DAILY #30 tab 10/21/20 Allergies Allergy/AdvReac Type Severity Reaction Status Date / Time advair Allergy Unknown Unknown Uncoded 10/08/20 20:46 paxil Allergy Unknown Unknown Uncoded 10/08/20 20:46 From PAXIL AdvReac Intermediate NAUSEA & Uncoded 10/08/20 20:46 VOMITING PMFSH Past Medical History Medical History Bipolar 1 disorder COPD (chronic obstructive pulmonary disease) Coronary artery disease Diabetes Hypertension Osteoarthritis Sleep apnea Surgical History Hx of appendectomy Social History Social History Household Members: Significant Other Housing: Apartment Alcohol intake: never Smoking Status: Current some day smoker Cigarettes Per Day: 3 Smoked in Last 30 Days: No Use of substances other than those prescribed or required for medical reasons: No Advance Directives: No Advance Directives Information Provided: No service: No Current occupational status: disabled and other Physical Exam Vital Signs: Vital Signs: Last Vital Signs Temp 98.5 F 10/21/20 10:58 Pulse 85 10/21/20 10:58 Resp 20 10/21/20 10:58 BP 161/85 H 10/21/20 10:58 Pulse Ox 97 10/21/20 10:58 Body Mass Index 42.5 Course Course Course Narrative: Patient seen by PT/OT able to ambulate in the ER, Alberto social media campaign manager spoke to the family , patient wants to go home and family agreed to take the patient home will discharge patient home Medical Decision Making Lab Data Result diagrams: 10/20/20 16:40 10/20/20 16:40 Labs: Lab Results 10/20/20 10/20/20 10/20/20 Range/Units 16:40 16:40 16:40 WBC 6.8 (4.8-10.8) X10*3/uL RBC 3.17 L (4.20-5.50) X10*6/uL Hgb 10.0 L (12.0-16.0) g/dl Hct 30.5 L (37-47) % MCV 96.2 (80-98) fL MCH 31.5 (27.0-33.0) pg MCHC 32.8 (31.0-35.0) g/dl RDW 13.7 (11.0-16.0) % Plt Count 289 (160-400) X10*3/uL MPV 9.3 L (9.4-12.3) fL Immature Gran % (Auto) 0.4 (0.0-0.4) % Neut % (Auto) 63.4 (45-73) % Lymph % (Auto) 22.1 (20-40) % [place] % (Auto) 12.7 H (2-11) % Eos % (Auto) 1.3 (0-4) % Baso % (Auto) 0.1 (0-2) % Lymph # (Auto) 1.5 (1.2-4.9) X10*3/uL [place] # (Auto) 0.9 (0.1-1.2) X10*3/uL Eos # (Auto) 0.1 (0.0-0.4) X10*3/uL Baso # (Auto) 0.0 (0.0-0.2) X10*3/uL Abs Immat Gran (auto) 0.03 (0.00-0.03) X10*3/uL Absolute Neuts (auto) 4.3 (2.0-8.3) X10*3/uL Absolute Nucleated RBC 0.000 (0.0-0.012) X10*3/uL Nucleated RBC % (auto) 0.0 (0.0-0.2) /100WBC PT 11.3 (10.8-13.0) SEC INR 1.0 (0.9-1.1) Sodium 139 (135-145) mmol/L Potassium 4.9 (3.3-5.1) mmol/l Chloride 101 (96-108) mmol/L Carbon Dioxide 28 (22-29) mmol/L Anion Gap 15 (12-20) BUN 35 H (9-16) mg/dL Creatinine 1.62 H (0.5-1.4) mg/dL Estim Creat Clear Calc 39.9 Estimated GFR 32 Random Glucose 106 (60-115) mg/dL Calcium 8.9 (8.4-10.2) mg/dL Magnesium 1.9 (1.6-2.6) mg/dL Total Bilirubin 0.4 (0.0-1.0) mg/dL Direct Bilirubin 0.2 (0.0-0.5) mg/dL AST 22 D (5-31) U/L ALT 20 (0-31) U/L Alkaline Phosphatase 81 (39-117) U/L B-Natriuretic Peptide (<100) pg/mL Total Protein 6.5 (6.5-8.0) g/dL Albumin 3.6 (3.5-5.0) g/dL Urine Color Urine Appearance Urine pH (5.0-8.0) Ur Specific Pearl (1.005-1.025) Urine Protein (NEG-TRACE) MG/DL Urine Glucose (UA) (NEG) MG/DL Urine Ketones (NEG) MG/DL Urine Blood (NEG) Urine Nitrite (NEG) Ur Leukocyte Esterase (NEG) Urine RBC (0) /HPF Urine WBC (0-4) /HPF Ur Squamous Epith Cells /LPF Urine Bacteria /LPF 10/20/20 10/20/20 Range/Units 16:40 22:15 WBC (4.8-10.8) X10*3/uL RBC (4.20-5.50) X10*6/uL Hgb (12.0-16.0) g/dl Hct (37-47) % MCV (80-98) fL MCH (27.0-33.0) pg MCHC (31.0-35.0) g/dl RDW (11.0-16.0) % Plt Count (160-400) X10*3/uL MPV (9.4-12.3) fL Immature Gran % (Auto) (0.0-0.4) % Neut % (Auto) (45-73) % Lymph % (Auto) (20-40) % [place] % (Auto) (2-11) % Eos % (Auto) (0-4) % Baso % (Auto) (0-2) % Lymph # (Auto) (1.2-4.9) X10*3/uL [place] # (Auto) (0.1-1.2) X10*3/uL Eos # (Auto) (0.0-0.4) X10*3/uL Baso # (Auto) (0.0-0.2) X10*3/uL Abs Immat Gran (auto) (0.00-0.03) X10*3/uL Absolute Neuts (auto) (2.0-8.3) X10*3/uL Absolute Nucleated RBC (0.0-0.012) X10*3/uL Nucleated RBC % (auto) (0.0-0.2) /100WBC PT (10.8-13.0) SEC INR (0.9-1.1) Sodium (135-145) mmol/L Potassium (3.3-5.1) mmol/l Chloride (96-108) mmol/L Carbon Dioxide (22-29) mmol/L Anion Gap (12-20) BUN (9-16) mg/dL Creatinine (0.5-1.4) mg/dL Estim Creat Clear Calc Estimated GFR Random Glucose (60-115) mg/dL Calcium (8.4-10.2) mg/dL Magnesium (1.6-2.6) mg/dL Total Bilirubin (0.0-1.0) mg/dL Direct Bilirubin (0.0-0.5) mg/dL AST (5-31) U/L ALT (0-31) U/L Alkaline Phosphatase (39-117) U/L B-Natriuretic Peptide 183 H (<100) pg/mL Total Protein (6.5-8.0) g/dL Albumin (3.5-5.0) g/dL Urine Color YELLOW Urine Appearance HAZY Urine pH 6.5 (5.0-8.0) Ur Specific Pearl 1.015 (1.005-1.025) Urine Protein NEG (NEG-TRACE) MG/DL Urine Glucose (UA) NEG (NEG) MG/DL Urine Ketones NEG (NEG) MG/DL Urine Blood 3+ H (NEG) Urine Nitrite POS H (NEG) Ur Leukocyte Esterase TRACE H (NEG) Urine RBC 30-49 H (0) /HPF Urine WBC 10-14 H (0-4) /HPF Ur Squamous Epith Cells 1+ /LPF Urine Bacteria 4+ /LPF Discharge Plan Discharge Clinical Impression: Bipolar 1 disorder Congestive heart failure with left ventricular diastolic dysfunction Qualifiers: Congestive heart failure chronicity: acute on chronic Qualified Code(s): I50.33 - Acute on chronic diastolic (congestive) heart failure Patient Disposition: Home, Self-Care Instructions: Bipolar Disorder (ED), Left-sided and Right-sided Heart Failure (ED) Additional Instructions: Take medication as prescribed daily. Stop Aldactone and start taking Lasix 20 mg daily Follow-up with PCP Prescriptions: New furosemide [Lasix] 20 mg tablet 20 mg PO DAILY Qty: 30 RF: 0 No Action ipratropium-albuterol 0.5 mg-3 mg(2.5 mg base)/3 mL solution for nebulization 1 amp inhalation QID PRN (Reason: Shortness Of Breath Or Wheezing) RF: 0 citalopram 40 mg tablet 40 mg PO QAM RF: 0 aspirin 81 mg tablet,delayed release (DR/EC) 81 mg PO BEDTIME RF: 0 montelukast 10 mg tablet 10 mg PO QPM RF: 0 Flovent HFA 220 mcg/actuation HFA aerosol inhaler 1 puff inhalation BID RF: 0 albuterol sulfate [Ventolin HFA] 90 mcg/actuation HFA aerosol inhaler 2 puff inhalation Q4-6H PRN (Reason: Shortness Of Breath Or Wheezing) RF: 0 thiamine HCl (vitamin B1) 100 mg Tablet 100 mg PO DAILY Qty: 30 RF: 0 folic acid 1 mg Tablet 1 mg PO DAILY Qty: 30 RF: 0 insulin lispro [Humalog U-100 Insulin] 100 unit/mL Solution 1 sliding scale dose subcut QIDACHS Qty: 10 RF: 0 sennosides [senna] 8.6 mg Tablet 8.6 mg PO BID RF: 0 clonazepam 1 mg Tablet 1 mg PO BID RF: 0 acetaminophen 650 mg Tablet Extended Release 650 mg PO Q12H PRN (Reason: Pain) RF: 0 baclofen 20 mg Tablet 20 mg PO DAILY PRN (Reason: Pain) RF: 0 pravastatin 20 mg Tablet 20 mg PO BEDTIME RF: 0 metoprolol succinate 25 mg Tablet Extended Release 24 Hr 25 mg PO DAILY RF: 0 quetiapine 50 mg Tablet 50 mg PO BID RF: 0 furosemide [Lasix] 20 mg tablet 20 mg PO QAM Qty: 30 RF: 0
--- NOTE | 2020-10-21 11:26 | MHC.CM.ED ---
pt is recommending home PT , a ref. has been made to [facility] for this. i spoke c pt's s.o., nehemias at ph: [phone]. he is on board c having pt return home c [facility] for home pt and he will cont. to be her support. he has requested to have transportion ambulance c stretcher to bring her home as she uses this mode of transport c discharges. md and rn in the e.d. are aware of this dc plan.cm to cont. to follow.
== END 2020-10-21 12:23 | disposition home or self-care (01) ==
PROVIDERS: Physician Assistant Medical; Emergency Provider Internal Medicine
DX: F03.91 Unspecified dementia, unspecified severity, with behavioral disturbance (principal); Z79.899 Other long term (current) drug therapy; F17.200 Nicotine dependence, unspecified, uncomplicated
CPT/HCPCS: 80048; 80076; 81001; 81003; 83735; 83880; 85025; 85610; 87086; 97162; 99284

== ENCOUNTER 2020-10-22 11:11 | Emergency (ER) | payer MEDICARE, MEDICAID, SELFPAY ==
[2020-10-22 11:23] VITALS: BP 145/100; BP 151/71; PULSE 65; PULSE 87; RESP 18; TEMP 36.9; O2SAT 100; BMI 33.7
--- NOTE | 2020-10-22 11:26 | ECG_ITS ---
Test Reason : FALL Blood Pressure : / mmHG Vent. Rate : 078 BPM Atrial Rate : 078 BPM P-R Int : 142 ms QRS Dur : 084 ms QT Int : 408 ms P-R-T Axes : 044 -18 062 degrees QTc Int : 465 ms Normal sinus rhythm T wave abnormality, consider anterior ischemia Abnormal ECG When compared with ECG of 11-OCT-2020 20:37, No significant change was found Referred By: Olga Chandra Electronically Signed By:Wilber Kincaid
--- NOTE | 2020-10-22 11:26 | CT_ITS ---
EXAMINATION: HEAD CT AND CERVICAL SPINE CT WITHOUT CONTRAST CLINICAL INFORMATION: Dizziness and fall COMPARISON: Previous head CT and cervical spine CT scans most recent 10/09/2020 TECHNIQUE: Axial images through the head and cervical spine without contrast. Sagittal and coronal reconstructions on the technologist workstation were performed. Patient dose 778+6 8 8 mg/cm FINDINGS: Head CT: There is no evidence of an extra-axial collection. There is no evidence of intra-axial or extra-axial hemorrhage. The ventricles and extra-axial CSF spaces are slightly prominent suggestive of mild generalized atrophy.. There is nonspecific periventricular white matter disease. No mass, mass effect or infarct is seen. There is chronic soft tissue opacification of the bilateral mastoid air cells and right middle ear. The left middle ear is clear however ossicle are not seen. There is minimal soft tissue opacification of the right maxillary sinus. The paranasal sinuses are otherwise clear. No skull fracture is seen. There is bilateral frontal hyperostosis. Cervical spine: Exam is limited due to motion artifact. Bone alignment is normal. No fracture or dislocation is seen. There is severe degenerative spondylosis and large bridging vertebral body bony osteophytes and degenerative disc disease, greatest at C3-C4 C4-C5 C5-C6 and C6-C7. There is bilateral multilevel facet arthritis, left greater than right. There are degenerative changes of the dens articulation. Prevertebral soft tissues are normal. The visualized lung apices are clear. CT/CT cervical spine wo con IMPRESSION: Head CT: No acute findings. Cervical spine: Limited due to motion artifact. Severe degenerative changes. No fracture or dislocation seen.
--- NOTE | 2020-10-22 11:26 | XR_ITS ---
EXAMINATION: CHEST AND RIGHT SHOULDER. CLINICAL INFORMATION: Status post fall. Right shoulder pain. COMPARISON: Chest 10/11/2020 TECHNIQUE: 2 views chest and 2 views right shoulder. FINDINGS: CHEST: The lungs are well-expanded and clear of acute process. Heart size and pulmonary vascularity is normal. No gross bony abnormality seen. RIGHT SHOULDER: There is significant loss of glenohumeral and AC joint space without bony erosive changes. No loose body seen. No soft tissue calcification seen. XR/XR chest 2V IMPRESSION: Unremarkable chest exam. Degenerative disc changes right shoulder joint.
--- NOTE | 2020-10-22 11:26 | XR_ITS ---
EXAMINATION: CHEST AND RIGHT SHOULDER. CLINICAL INFORMATION: Status post fall. Right shoulder pain. COMPARISON: Chest 10/11/2020 TECHNIQUE: 2 views chest and 2 views right shoulder. FINDINGS: CHEST: The lungs are well-expanded and clear of acute process. Heart size and pulmonary vascularity is normal. No gross bony abnormality seen. RIGHT SHOULDER: There is significant loss of glenohumeral and AC joint space without bony erosive changes. No loose body seen. No soft tissue calcification seen. XR/XR shoulder RT min 2V IMPRESSION: Unremarkable chest exam. Degenerative disc changes right shoulder joint.
[2020-10-22 11:37] LABS: Glucose, Whole Blood 82 mg/dL (60-115)
--- NOTE | 2020-10-22 12:00 | ED.FALL ---
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 (0.0-0.012) X10*3/uL Nucleated RBC % (auto) (0.0-0.2) /100WBC PT (10.8-13.0) SEC INR (0.9-1.1) Sodium (135-145) mmol/L Potassium (3.3-5.1) mmol/l Chloride (96-108) mmol/L Carbon Dioxide (22-29) mmol/L Anion Gap (12-20) BUN (9-16) mg/dL Creatinine (0.5-1.4) mg/dL Estim Creat Clear Calc Estimated GFR POC Glucose 101 120 H 105 (60-115) mg/dL Random Glucose (60-115) mg/dL Calcium (8.4-10.2) mg/dL Magnesium (1.6-2.6) mg/dL Total Bilirubin (0.0-1.0) mg/dL Direct Bilirubin (0.0-0.5) mg/dL AST (5-31) U/L ALT (0-31) U/L Alkaline Phosphatase (39-117) U/L Total Creatine Kinase (26-140) U/L Troponin I High Sens (<3.5-17.0) ng/L B-Natriuretic Peptide (<100) pg/mL Total Protein (6.5-8.0) g/dL Albumin (3.5-5.0) g/dL Urine Color Urine Appearance Urine pH (5.0-8.0) Ur Specific [place] (1.005-1.025) Urine Protein (NEG-TRACE) MG/DL Urine Glucose (UA) (NEG) MG/DL Urine Ketones (NEG) MG/DL Urine Blood (NEG) Urine Nitrite (NEG) Ur Leukocyte Esterase (NEG) Urine RBC (0) /HPF Urine WBC (0-4) /HPF Ur Squamous Epith Cells /LPF Urine Bacteria /LPF Urine Opiates Screen (Not Detect) Ur Barbiturates Screen (Not Detect) Ur Phencyclidine Scrn (Not Detect) Ur Amphetamines Screen (Not Detect) U Benzodiazepines Scrn (Not Detect) Urine Cocaine Screen (Not Detect) U Marijuana (THC) Screen (Not Detect) Ethyl Alcohol mg/dL Coronavirus (PCR) (Negative) Influenza Type A (PCR) (Negative) Influenza Type B (PCR) (Negative) RSV RNA Qual (PCR) (Negative) <ALICIA Hanson - Last Filed: 10/22/20 17:35> Lab Results 10/22/20 10/22/20 10/22/20 Range/Units 11:33 11:59 11:59 WBC (4.8-10.8) X10*3/uL RBC (4.20-5.50) X10*6/uL Hgb (12.0-16.0) g/dl Hct (37-47) % MCV (80-98) fL MCH (27.0-33.0) pg MCHC (31.0-35.0) g/dl RDW (11.0-16.0) % Plt Count (160-400) X10*3/uL MPV (9.4-12.3) fL Immature Gran % (Auto) (0.0-0.4) % Neut % (Auto) (45-73) % Lymph % (Auto) (20-40) % Pepin % (Auto) (2-11) % Eos % (Auto) (0-4) % Baso % (Auto) (0-2) % Lymph # (Auto) (1.2-4.9) X10*3/uL Pepin # (Auto) (0.1-1.2) X10*3/uL Eos # (Auto) (0.0-0.4) X10*3/uL Baso # (Auto) (0.0-0.2) X10*3/uL Abs Immat Gran (auto) (0.00-0.03) X10*3/uL Absolute Neuts (auto) (2.0-8.3) X10*3/uL Absolute Nucleated RBC (0.0-0.012) X10*3/uL Nucleated RBC % (auto) (0.0-0.2) /100WBC PT (10.8-13.0) SEC INR (0.9-1.1) Sodium (135-145) mmol/L Potassium (3.3-5.1) mmol/l Chloride (96-108) mmol/L Carbon Dioxide (22-29) mmol/L Anion Gap (12-20) BUN (9-16) mg/dL Creatinine (0.5-1.4) mg/dL Estim Creat Clear Calc Estimated GFR POC Glucose 82 (60-115) mg/dL Random Glucose (60-115) mg/dL Calcium (8.4-10.2) mg/dL Magnesium (1.6-2.6) mg/dL Total Bilirubin (0.0-1.0) mg/dL Direct Bilirubin (0.0-0.5) mg/dL AST (5-31) U/L ALT (0-31) U/L Alkaline Phosphatase (39-117) U/L Total Creatine Kinase 36 (26-140) U/L Troponin I High Sens 7.9 (<3.5-17.0) ng/L B-Natriuretic Peptide 125 H (<100) pg/mL Total Protein (6.5-8.0) g/dL Albumin (3.5-5.0) g/dL Urine Color Urine Appearance Urine pH (5.0-8.0) Ur Specific [place] (1.005-1.025) Urine Protein (NEG-TRACE) MG/DL Urine Glucose (UA) (NEG) MG/DL Urine Ketones (NEG) MG/DL Urine Blood (NEG) Urine Nitrite (NEG) Ur Leukocyte Esterase (NEG) Urine RBC (0) /HPF Urine WBC (0-4) /HPF Ur Squamous Epith Cells /LPF Urine Bacteria /LPF Urine Opiates Screen (Not Detect) Ur Barbiturates Screen (Not Detect) Ur Phencyclidine Scrn (Not Detect) Ur Amphetamines Screen (Not Detect) U Benzodiazepines Scrn (Not Detect) Urine Cocaine Screen (Not Detect) U Marijuana (THC) Screen (Not Detect) Ethyl Alcohol mg/dL Coronavirus (PCR) (Negative) Influenza Type A (PCR) (Negative) Influenza Type B (PCR) (Negative) RSV RNA Qual (PCR) (Negative) 10/22/20 10/22/20 10/22/20 Range/Units 12:00 12:43 12:43 WBC 6.7 (4.8-10.8) X10*3/uL RBC 3.54 L (4.20-5.50) X10*6/uL Hgb 11.0 L (12.0-16.0) g/dl Hct 32.6 L (37-47) % MCV 92.1 (80-98) fL MCH 31.1 (27.0-33.0) pg MCHC 33.7 (31.0-35.0) g/dl RDW 12.9 (11.0-16.0) % Plt Count 359 (160-400) X10*3/uL MPV 9.2 L (9.4-12.3) fL Immature Gran % (Auto) 0.9 H (0.0-0.4) % Neut % (Auto) 59.7 (45-73) % Lymph % (Auto) 27.8 (20-40) % Pepin % (Auto) 11.1 H (2-11) % Eos % (Auto) 0.1 (0-4) % Baso % (Auto) 0.4 (0-2) % Lymph # (Auto) 1.9 (1.2-4.9) X10*3/uL [place] # (Auto) 0.8 (0.1-1.2) X10*3/uL Eos # (Auto) 0.0 (0.0-0.4) X10*3/uL Baso # (Auto) 0.0 (0.0-0.2) X10*3/uL Abs Immat Gran (auto) 0.06 H (0.00-0.03) X10*3/uL Absolute Neuts (auto) 4.0 (2.0-8.3) X10*3/uL Absolute Nucleated RBC 0.000 (0.0-0.012) X10*3/uL Nucleated RBC % (auto) 0.0 (0.0-0.2) /100WBC PT 11.5 (10.8-13.0) SEC INR 1.0 (0.9-1.1) Sodium (135-145) mmol/L Potassium (3.3-5.1) mmol/l Chloride (96-108) mmol/L Carbon Dioxide (22-29) mmol/L Anion Gap (12-20) BUN (9-16) mg/dL Creatinine (0.5-1.4) mg/dL Estim Creat Clear Calc Estimated GFR POC Glucose (60-115) mg/dL Random Glucose (60-115) mg/dL Calcium (8.4-10.2) mg/dL Magnesium (1.6-2.6) mg/dL Total Bilirubin (0.0-1.0) mg/dL Direct Bilirubin (0.0-0.5) mg/dL AST (5-31) U/L ALT (0-31) U/L Alkaline Phosphatase (39-117) U/L Total Creatine Kinase (26-140) U/L Troponin I High Sens (<3.5-17.0) ng/L B-Natriuretic Peptide (<100) pg/mL Total Protein (6.5-8.0) g/dL Albumin (3.5-5.0) g/dL Urine Color Urine Appearance Urine pH (5.0-8.0) Ur Specific [place] (1.005-1.025) Urine Protein (NEG-TRACE) MG/DL Urine Glucose (UA) (NEG) MG/DL Urine Ketones (NEG) MG/DL Urine Blood (NEG) Urine Nitrite (NEG) Ur Leukocyte Esterase (NEG) Urine RBC (0) /HPF Urine WBC (0-4) /HPF Ur Squamous Epith Cells /LPF Urine Bacteria /LPF Urine Opiates Screen (Not Detect) Ur Barbiturates Screen (Not Detect) Ur Phencyclidine Scrn (Not Detect) Ur Amphetamines Screen (Not Detect) U Benzodiazepines Scrn (Not Detect) Urine Cocaine Screen (Not Detect) U Marijuana (THC) Screen (Not Detect) Ethyl Alcohol mg/dL Coronavirus (PCR) NEGATIVE (Negative) Influenza Type A (PCR) NEGATIVE (Negative) Influenza Type B (PCR) NEGATIVE (Negative) RSV RNA Qual (PCR) NEGATIVE (Negative) 10/22/20 10/22/20 10/22/20 Range/Units 12:43 12:43 15:19 WBC (4.8-10.8) X10*3/uL RBC (4.20-5.50) X10*6/uL Hgb (12.0-16.0) g/dl Hct (37-47) % MCV (80-98) fL MCH (27.0-33.0) pg MCHC (31.0-35.0) g/dl RDW (11.0-16.0) % Plt Count (160-400) X10*3/uL MPV (9.4-12.3) fL Immature Gran % (Auto) (0.0-0.4) % Neut % (Auto) (45-73) % Lymph % (Auto) (20-40) % Pepin % (Auto) (2-11) % Eos % (Auto) (0-4) % Baso % (Auto) (0-2) % Lymph # (Auto) (1.2-4.9) X10*3/uL [place] # (Auto) (0.1-1.2) X10*3/uL Eos # (Auto) (0.0-0.4) X10*3/uL Baso # (Auto) (0.0-0.2) X10*3/uL Abs Immat Gran (auto) (0.00-0.03) X10*3/uL Absolute Neuts (auto) (2.0-8.3) X10*3/uL Absolute Nucleated RBC (0.0-0.012) X10*3/uL Nucleated RBC % (auto) (0.0-0.2) /100WBC PT (10.8-13.0) SEC INR (0.9-1.1) Sodium 134 L (135-145) mmol/L Potassium 5.6 H (3.3-5.1) mmol/l Chloride 98 (96-108) mmol/L Carbon Dioxide 25 (22-29) mmol/L Anion Gap 17 (12-20) BUN 31 H (9-16) mg/dL Creatinine 1.44 H (0.5-1.4) mg/dL Estim Creat Clear Calc 42.4 Estimated GFR 36 POC Glucose (60-115) mg/dL Random Glucose 97 (60-115) mg/dL Calcium 8.9 (8.4-10.2) mg/dL Magnesium 2.3 (1.6-2.6) mg/dL Total Bilirubin 0.3 (0.0-1.0) mg/dL Direct Bilirubin 0.2 (0.0-0.5) mg/dL AST 25 (5-31) U/L ALT 25 (0-31) U/L Alkaline Phosphatase 84 (39-117) U/L Total Creatine Kinase (26-140) U/L Troponin I High Sens 9.3 (<3.5-17.0) ng/L B-Natriuretic Peptide (<100) pg/mL Total Protein 7.1 (6.5-8.0) g/dL Albumin 3.7 (3.5-5.0) g/dL Urine Color Urine Appearance Urine pH (5.0-8.0) Ur Specific [place] (1.005-1.025) Urine Protein (NEG-TRACE) MG/DL Urine Glucose (UA) (NEG) MG/DL Urine Ketones (NEG) MG/DL Urine Blood (NEG) Urine Nitrite (NEG) Ur Leukocyte Esterase (NEG) Urine RBC (0) /HPF Urine WBC (0-4) /HPF Ur Squamous Epith Cells /LPF Urine Bacteria /LPF Urine Opiates Screen (Not Detect) Ur Barbiturates Screen (Not Detect) Ur Phencyclidine Scrn (Not Detect) Ur Amphetamines Screen (Not Detect) U Benzodiazepines Scrn (Not Detect) Urine Cocaine Screen (Not Detect) U Marijuana (THC) Screen (Not Detect) Ethyl Alcohol 103 mg/dL Coronavirus (PCR) (Negative) Influenza Type A (PCR) (Negative) Influenza Type B (PCR) (Negative) RSV RNA Qual (PCR) (Negative) 10/22/20 10/23/20 10/23/20 Range/Units 16:22 02:32 07:48 WBC (4.8-10.8) X10*3/uL RBC (4.20-5.50) X10*6/uL Hgb (12.0-16.0) g/dl Hct (37-47) % MCV (80-98) fL MCH (27.0-33.0) pg MCHC (31.0-35.0) g/dl RDW (11.0-16.0) % Plt Count (160-400) X10*3/uL MPV (9.4-12.3) fL Immature Gran % (Auto) (0.0-0.4) % Neut % (Auto) (45-73) % Lymph % (Auto) (20-40) % Pepin % (Auto) (2-11) % Eos % (Auto) (0-4) % Baso % (Auto) (0-2) % Lymph # (Auto) (1.2-4.9) X10*3/uL [place] # (Auto) (0.1-1.2) X10*3/uL Eos # (Auto) (0.0-0.4) X10*3/uL Baso # (Auto) (0.0-0.2) X10*3/uL Abs Immat Gran (auto) (0.00-0.03) X10*3/uL Absolute Neuts (auto) (2.0-8.3) X10*3/uL Absolute Nucleated RBC (0.0-0.012) X10*3/uL Nucleated RBC % (auto) (0.0-0.2) /100WBC PT (10.8-13.0) SEC INR (0.9-1.1) Sodium 137 (135-145) mmol/L Potassium 4.7 (3.3-5.1) mmol/l Chloride 99 (96-108) mmol/L Carbon Dioxide 24 (22-29) mmol/L Anion Gap 19 (12-20) BUN 33 H (9-16) mg/dL Creatinine 1.48 H (0.5-1.4) mg/dL Estim Creat Clear Calc 41.3 Estimated GFR 35 POC Glucose 135 H (60-115) mg/dL Random Glucose 113 (60-115) mg/dL Calcium 9.0 (8.4-10.2) mg/dL Magnesium (1.6-2.6) mg/dL Total Bilirubin (0.0-1.0) mg/dL Direct Bilirubin (0.0-0.5) mg/dL AST (5-31) U/L ALT (0-31) U/L Alkaline Phosphatase (39-117) U/L Total Creatine Kinase (26-140) U/L Troponin I High Sens 13.5 (<3.5-17.0) ng/L B-Natriuretic Peptide (<100) pg/mL Total Protein (6.5-8.0) g/dL Albumin (3.5-5.0) g/dL Urine Color Urine Appearance Urine pH (5.0-8.0) Ur Specific [place] (1.005-1.025) Urine Protein (NEG-TRACE) MG/DL Urine Glucose (UA) (NEG) MG/DL Urine Ketones (NEG) MG/DL Urine Blood (NEG) Urine Nitrite (NEG) Ur Leukocyte Esterase (NEG) Urine RBC (0) /HPF Urine WBC (0-4) /HPF Ur Squamous Epith Cells /LPF Urine Bacteria /LPF Urine Opiates Screen (Not Detect) Ur Barbiturates Screen (Not Detect) Ur Phencyclidine Scrn (Not Detect) Ur Amphetamines Screen (Not Detect) U Benzodiazepines Scrn (Not Detect) Urine Cocaine Screen (Not Detect) U Marijuana (THC) Screen (Not Detect) Ethyl Alcohol mg/dL Coronavirus (PCR) (Negative) Influenza Type A (PCR) (Negative) Influenza Type B (PCR) (Negative) RSV RNA Qual (PCR) (Negative) 10/23/20 10/23/20 10/23/20 Range/Units 08:08 11:16 11:16 WBC (4.8-10.8) X10*3/uL RBC (4.20-5.50) X10*6/uL Hgb (12.0-16.0) g/dl Hct (37-47) % MCV (80-98) fL MCH (27.0-33.0) pg MCHC (31.0-35.0) g/dl RDW (11.0-16.0) % Plt Count (160-400) X10*3/uL MPV (9.4-12.3) fL Immature Gran % (Auto) (0.0-0.4) % Neut % (Auto) (45-73) % Lymph % (Auto) (20-40) % Pepin % (Auto) (2-11) % Eos % (Auto) (0-4) % Baso % (Auto) (0-2) % Lymph # (Auto) (1.2-4.9) X10*3/uL Pepin # (Auto) (0.1-1.2) X10*3/uL Eos # (Auto) (0.0-0.4) X10*3/uL Baso # (Auto) (0.0-0.2) X10*3/uL Abs Immat Gran (auto) (0.00-0.03) X10*3/uL Absolute Neuts (auto) (2.0-8.3) X10*3/uL Absolute Nucleated RBC (0.0-0.012) X10*3/uL Nucleated RBC % (auto) (0.0-0.2) /100WBC PT (10.8-13.0) SEC INR (0.9-1.1) Sodium (135-145) mmol/L Potassium (3.3-5.1) mmol/l Chloride (96-108) mmol/L Carbon Dioxide (22-29) mmol/L Anion Gap (12-20) BUN (9-16) mg/dL Creatinine (0.5-1.4) mg/dL Estim Creat Clear Calc Estimated GFR POC Glucose (60-115) mg/dL Random Glucose (60-115) mg/dL Calcium (8.4-10.2) mg/dL Magnesium (1.6-2.6) mg/dL Total Bilirubin (0.0-1.0) mg/dL Direct Bilirubin (0.0-0.5) mg/dL AST (5-31) U/L ALT (0-31) U/L Alkaline Phosphatase (39-117) U/L Total Creatine Kinase (26-140) U/L Troponin I High Sens 13.2 (<3.5-17.0) ng/L B-Natriuretic Peptide (<100) pg/mL Total Protein (6.5-8.0) g/dL Albumin (3.5-5.0) g/dL Urine Color YELLOW Urine Appearance CLOUDY Urine pH 6.0 (5.0-8.0) Ur Specific [place] 1.020 (1.005-1.025) Urine Protein 1+ H (NEG-TRACE) MG/DL Urine Glucose (UA) NEG (NEG) MG/DL Urine Ketones NEG (NEG) MG/DL Urine Blood 3+ H (NEG) Urine Nitrite NEG (NEG) Ur Leukocyte Esterase 2+ H (NEG) Urine RBC 1-4 (0) /HPF Urine WBC TNTC H (0-4) /HPF Ur Squamous Epith Cells NONE /LPF Urine Bacteria 2+ /LPF Urine Opiates Screen Not Detected (Not Detect) Ur Barbiturates Screen Not Detected (Not Detect) Ur Phencyclidine Scrn Not Detected (Not Detect) Ur Amphetamines Screen Not Detected (Not Detect) U Benzodiazepines Scrn Not Detected (Not Detect) Urine Cocaine Screen Not Detected (Not Detect) U Marijuana (THC) Screen POSITIVE H (Not Detect) Ethyl Alcohol mg/dL Coronavirus (PCR) (Negative) Influenza Type A (PCR) (Negative) Influenza Type B (PCR) (Negative) RSV RNA Qual (PCR) (Negative) 10/23/20 10/23/20 10/23/20 Range/Units 12:34 17:43 22:36 WBC (4.8-10.8) X10*3/uL RBC (4.20-5.50) X10*6/uL Hgb (12.0-16.0) g/dl Hct (37-47) % MCV (80-98) fL MCH (27.0-33.0) pg MCHC (31.0-35.0) g/dl RDW (11.0-16.0) % Plt Count (160-400) X10*3/uL MPV (9.4-12.3) fL Immature Gran % (Auto) (0.0-0.4) % Neut % (Auto) (45-73) % Lymph % (Auto) (20-40) % Pepin % (Auto) (2-11) % Eos % (Auto) (0-4) % Baso % (Auto) (0-2) % Lymph # (Auto) (1.2-4.9) X10*3/uL Pepin # (Auto) (0.1-1.2) X10*3/uL Eos # (Auto) (0.0-0.4) X10*3/uL Baso # (Auto) (0.0-0.2) X10*3/uL Abs Immat Gran (auto) (0.00-0.03) X10*3/uL Absolute Neuts (auto) (2.0-8.3) X10*3/uL Absolute Nucleated RBC (0.0-0.012) X10*3/uL Nucleated RBC % (auto) (0.0-0.2) /100WBC PT (10.8-13.0) SEC INR (0.9-1.1) Sodium (135-145) mmol/L Potassium (3.3-5.1) mmol/l Chloride (96-108) mmol/L Carbon Dioxide (22-29) mmol/L Anion Gap (12-20) BUN (9-16) mg/dL Creatinine (0.5-1.4) mg/dL Estim Creat Clear Calc Estimated GFR POC Glucose 101 120 H 105 (60-115) mg/dL Random Glucose (60-115) mg/dL Calcium (8.4-10.2) mg/dL Magnesium (1.6-2.6) mg/dL Total Bilirubin (0.0-1.0) mg/dL Direct Bilirubin (0.0-0.5) mg/dL AST (5-31) U/L ALT (0-31) U/L Alkaline Phosphatase (39-117) U/L Total Creatine Kinase (26-140) U/L Troponin I High Sens (<3.5-17.0) ng/L B-Natriuretic Peptide (<100) pg/mL Total Protein (6.5-8.0) g/dL Albumin (3.5-5.0) g/dL Urine Color Urine Appearance Urine pH (5.0-8.0) Ur Specific [place] (1.005-1.025) Urine Protein (NEG-TRACE) MG/DL Urine Glucose (UA) (NEG) MG/DL Urine Ketones (NEG) MG/DL Urine Blood (NEG) Urine Nitrite (NEG) Ur Leukocyte Esterase (NEG) Urine RBC (0) /HPF Urine WBC (0-4) /HPF Ur Squamous Epith Cells /LPF Urine Bacteria /LPF Urine Opiates Screen (Not Detect) Ur Barbiturates Screen (Not Detect) Ur Phencyclidine Scrn (Not Detect) Ur Amphetamines Screen (Not Detect) U Benzodiazepines Scrn (Not Detect) Urine Cocaine Screen (Not Detect) U Marijuana (THC) Screen (Not Detect) Ethyl Alcohol mg/dL Coronavirus (PCR) (Negative) Influenza Type A (PCR) (Negative) Influenza Type B (PCR) (Negative) RSV RNA Qual (PCR) (Negative) <Broderick Caldwell MD - Last Filed: 10/23/20 06:34> Lab Results 10/22/20 10/22/20 10/22/20 Range/Units 11:33 11:59 11:59 WBC (4.8-10.8) X10*3/uL RBC (4.20-5.50) X10*6/uL Hgb (12.0-16.0) g/dl Hct (37-47) % MCV (80-98) fL MCH (27.0-33.0) pg MCHC (31.0-35.0) g/dl RDW (11.0-16.0) % Plt Count (160-400) X10*3/uL MPV (9.4-12.3) fL Immature Gran % (Auto) (0.0-0.4) % Neut % (Auto) (45-73) % Lymph % (Auto) (20-40) % Pepin % (Auto) (2-11) % Eos % (Auto) (0-4) % Baso % (Auto) (0-2) % Lymph # (Auto) (1.2-4.9) X10*3/uL Pepin # (Auto) (0.1-1.2) X10*3/uL Eos # (Auto) (0.0-0.4) X10*3/uL Baso # (Auto) (0.0-0.2) X10*3/uL Abs Immat Gran (auto) (0.00-0.03) X10*3/uL Absolute Neuts (auto) (2.0-8.3) X10*3/uL Absolute Nucleated RBC (0.0-0.012) X10*3/uL Nucleated RBC % (auto) (0.0-0.2) /100WBC PT (10.8-13.0) SEC INR (0.9-1.1) Sodium (135-145) mmol/L Potassium (3.3-5.1) mmol/l Chloride (96-108) mmol/L Carbon Dioxide (22-29) mmol/L Anion Gap (12-20) BUN (9-16) mg/dL Creatinine (0.5-1.4) mg/dL Estim Creat Clear Calc Estimated GFR POC Glucose 82 (60-115) mg/dL Random Glucose (60-115) mg/dL Calcium (8.4-10.2) mg/dL Magnesium (1.6-2.6) mg/dL Total Bilirubin (0.0-1.0) mg/dL Direct Bilirubin (0.0-0.5) mg/dL AST (5-31) U/L ALT (0-31) U/L Alkaline Phosphatase (39-117) U/L Total Creatine Kinase 36 (26-140) U/L Troponin I High Sens 7.9 (<3.5-17.0) ng/L B-Natriuretic Peptide 125 H (<100) pg/mL Total Protein (6.5-8.0) g/dL Albumin (3.5-5.0) g/dL Urine Color Urine Appearance Urine pH (5.0-8.0) Ur Specific [place] (1.005-1.025) Urine Protein (NEG-TRACE) MG/DL Urine Glucose (UA) (NEG) MG/DL Urine Ketones (NEG) MG/DL Urine Blood (NEG) Urine Nitrite (NEG) Ur Leukocyte Esterase (NEG) Urine RBC (0) /HPF Urine WBC (0-4) /HPF Ur Squamous Epith Cells /LPF Urine Bacteria /LPF Urine Opiates Screen (Not Detect) Ur Barbiturates Screen (Not Detect) Ur Phencyclidine Scrn (Not Detect) Ur Amphetamines Screen (Not Detect) U Benzodiazepines Scrn (Not Detect) Urine Cocaine Screen (Not Detect) U Marijuana (THC) Screen (Not Detect) Ethyl Alcohol mg/dL Coronavirus (PCR) (Negative) Influenza Type A (PCR) (Negative) Influenza Type B (PCR) (Negative) RSV RNA Qual (PCR) (Negative) 10/22/20 10/22/20 10/22/20 Range/Units 12:00 12:43 12:43 WBC 6.7 (4.8-10.8) X10*3/uL RBC 3.54 L (4.20-5.50) X10*6/uL Hgb 11.0 L (12.0-16.0) g/dl Hct 32.6 L (37-47) % MCV 92.1 (80-98) fL MCH 31.1 (27.0-33.0) pg MCHC 33.7 (31.0-35.0) g/dl RDW 12.9 (11.0-16.0) % Plt Count 359 (160-400) X10*3/uL MPV 9.2 L (9.4-12.3) fL Immature Gran % (Auto) 0.9 H (0.0-0.4) % Neut % (Auto) 59.7 (45-73) % Lymph % (Auto) 27.8 (20-40) % Pepin % (Auto) 11.1 H (2-11) % Eos % (Auto) 0.1 (0-4) % Baso % (Auto) 0.4 (0-2) % Lymph # (Auto) 1.9 (1.2-4.9) X10*3/uL Pepin # (Auto) 0.8 (0.1-1.2) X10*3/uL Eos # (Auto) 0.0 (0.0-0.4) X10*3/uL Baso # (Auto) 0.0 (0.0-0.2) X10*3/uL Abs Immat Gran (auto) 0.06 H (0.00-0.03) X10*3/uL Absolute Neuts (auto) 4.0 (2.0-8.3) X10*3/uL Absolute Nucleated RBC 0.000 (0.0-0.012) X10*3/uL Nucleated RBC % (auto) 0.0 (0.0-0.2) /100WBC PT 11.5 (10.8-13.0) SEC INR 1.0 (0.9-1.1) Sodium (135-145) mmol/L Potassium (3.3-5.1) mmol/l Chloride (96-108) mmol/L Carbon Dioxide (22-29) mmol/L Anion Gap (12-20) BUN (9-16) mg/dL Creatinine (0.5-1.4) mg/dL Estim Creat Clear Calc Estimated GFR POC Glucose (60-115) mg/dL Random Glucose (60-115) mg/dL Calcium (8.4-10.2) mg/dL Magnesium (1.6-2.6) mg/dL Total Bilirubin (0.0-1.0) mg/dL Direct Bilirubin (0.0-0.5) mg/dL AST (5-31) U/L ALT (0-31) U/L Alkaline Phosphatase (39-117) U/L Total Creatine Kinase (26-140) U/L Troponin I High Sens (<3.5-17.0) ng/L B-Natriuretic Peptide (<100) pg/mL Total Protein (6.5-8.0) g/dL Albumin (3.5-5.0) g/dL Urine Color Urine Appearance Urine pH (5.0-8.0) Ur Specific [place] (1.005-1.025) Urine Protein (NEG-TRACE) MG/DL Urine Glucose (UA) (NEG) MG/DL Urine Ketones (NEG) MG/DL Urine Blood (NEG) Urine Nitrite (NEG) Ur Leukocyte Esterase (NEG) Urine RBC (0) /HPF Urine WBC (0-4) /HPF Ur Squamous Epith Cells /LPF Urine Bacteria /LPF Urine Opiates Screen (Not Detect) Ur Barbiturates Screen (Not Detect) Ur Phencyclidine Scrn (Not Detect) Ur Amphetamines Screen (Not Detect) U Benzodiazepines Scrn (Not Detect) Urine Cocaine Screen (Not Detect) U Marijuana (THC) Screen (Not Detect) Ethyl Alcohol mg/dL Coronavirus (PCR) NEGATIVE (Negative) Influenza Type A (PCR) NEGATIVE (Negative) Influenza Type B (PCR) NEGATIVE (Negative) RSV RNA Qual (PCR) NEGATIVE (Negative) 10/22/20 10/22/20 10/22/20 Range/Units 12:43 12:43 15:19 WBC (4.8-10.8) X10*3/uL RBC (4.20-5.50) X10*6/uL Hgb (12.0-16.0) g/dl Hct (37-47) % MCV (80-98) fL MCH (27.0-33.0) pg MCHC (31.0-35.0) g/dl RDW (11.0-16.0) % Plt Count (160-400) X10*3/uL MPV (9.4-12.3) fL Immature Gran % (Auto) (0.0-0.4) % Neut % (Auto) (45-73) % Lymph % (Auto) (20-40) % Pep[place] % (Auto) (2-11) % Eos % (Auto) (0-4) % Baso % (Auto) (0-2) % Lymph # (Auto) (1.2-4.9) X10*3/uL [place] # (Auto) (0.1-1.2) X10*3/uL Eos # (Auto) (0.0-0.4) X10*3/uL Baso # (Auto) (0.0-0.2) X10*3/uL Abs Immat Gran (auto) (0.00-0.03) X10*3/uL Absolute Neuts (auto) (2.0-8.3) X10*3/uL Absolute Nucleated RBC (0.0-0.012) X10*3/uL Nucleated RBC % (auto) (0.0-0.2) /100WBC PT (10.8-13.0) SEC INR (0.9-1.1) Sodium 134 L (135-145) mmol/L Potassium 5.6 H (3.3-5.1) mmol/l Chloride 98 (96-108) mmol/L Carbon Dioxide 25 (22-29) mmol/L Anion Gap 17 (12-20) BUN 31 H (9-16) mg/dL Creatinine 1.44 H (0.5-1.4) mg/dL Estim Creat Clear Calc 42.4 Estimated GFR 36 POC Glucose (60-115) mg/dL Random Glucose 97 (60-115) mg/dL Calcium 8.9 (8.4-10.2) mg/dL Magnesium 2.3 (1.6-2.6) mg/dL Total Bilirubin 0.3 (0.0-1.0) mg/dL Direct Bilirubin 0.2 (0.0-0.5) mg/dL AST 25 (5-31) U/L ALT 25 (0-31) U/L Alkaline Phosphatase 84 (39-117) U/L Total Creatine Kinase (26-140) U/L Troponin I High Sens 9.3 (<3.5-17.0) ng/L B-Natriuretic Peptide (<100) pg/mL Total Protein 7.1 (6.5-8.0) g/dL Albumin 3.7 (3.5-5.0) g/dL Urine Color Urine Appearance Urine pH (5.0-8.0) Ur Specific [place] (1.005-1.025) Urine Protein (NEG-TRACE) MG/DL Urine Glucose (UA) (NEG) MG/DL Urine Ketones (NEG) MG/DL Urine Blood (NEG) Urine Nitrite (NEG) Ur Leukocyte Esterase (NEG) Urine RBC (0) /HPF Urine WBC (0-4) /HPF Ur Squamous Epith Cells /LPF Urine Bacteria /LPF Urine Opiates Screen (Not Detect) Ur Barbiturates Screen (Not Detect) Ur Phencyclidine Scrn (Not Detect) Ur Amphetamines Screen (Not Detect) U Benzodiazepines Scrn (Not Detect) Urine Cocaine Screen (Not Detect) U Marijuana (THC) Screen (Not Detect) Ethyl Alcohol 103 mg/dL Coronavirus (PCR) (Negative) Influenza Type A (PCR) (Negative) Influenza Type B (PCR) (Negative) RSV RNA Qual (PCR) (Negative) 10/22/20 10/23/20 10/23/20 Range/Units 16:22 02:32 07:48 WBC (4.8-10.8) X10*3/uL RBC (4.20-5.50) X10*6/uL Hgb (12.0-16.0) g/dl Hct (37-47) % MCV (80-98) fL MCH (27.0-33.0) pg MCHC (31.0-35.0) g/dl RDW (11.0-16.0) % Plt Count (160-400) X10*3/uL MPV (9.4-12.3) fL Immature Gran % (Auto) (0.0-0.4) % Neut % (Auto) (45-73) % Lymph % (Auto) (20-40) % [place] % (Auto) (2-11) % Eos % (Auto) (0-4) % Baso % (Auto) (0-2) % Lymph # (Auto) (1.2-4.9) X10*3/uL [place] # (Auto) (0.1-1.2) X10*3/uL Eos # (Auto) (0.0-0.4) X10*3/uL Baso # (Auto) (0.0-0.2) X10*3/uL Abs Immat Gran (auto) (0.00-0.03) X10*3/uL Absolute Neuts (auto) (2.0-8.3) X10*3/uL Absolute Nucleated RBC (0.0-0.012) X10*3/uL Nucleated RBC % (auto) (0.0-0.2) /100WBC PT (10.8-13.0) SEC INR (0.9-1.1) Sodium 137 (135-145) mmol/L Potassium 4.7 (3.3-5.1) mmol/l Chloride 99 (96-108) mmol/L Carbon Dioxide 24 (22-29) mmol/L Anion Gap 19 (12-20) BUN 33 H (9-16) mg/dL Creatinine 1.48 H (0.5-1.4) mg/dL Estim Creat Clear Calc 41.3 Estimated GFR 35 POC Glucose 135 H (60-115) mg/dL Random Glucose 113 (60-115) mg/dL Calcium 9.0 (8.4-10.2) mg/dL Magnesium (1.6-2.6) mg/dL Total Bilirubin (0.0-1.0) mg/dL Direct Bilirubin (0.0-0.5) mg/dL AST (5-31) U/L ALT (0-31) U/L Alkaline Phosphatase (39-117) U/L Total Creatine Kinase (26-140) U/L Troponin I High Sens 13.5 (<3.5-17.0) ng/L B-Natriuretic Peptide (<100) pg/mL Total Protein (6.5-8.0) g/dL Albumin (3.5-5.0) g/dL Urine Color Urine Appearance Urine pH (5.0-8.0) Ur Specific [place] (1.005-1.025) Urine Protein (NEG-TRACE) MG/DL Urine Glucose (UA) (NEG) MG/DL Urine Ketones (NEG) MG/DL Urine Blood (NEG) Urine Nitrite (NEG) Ur Leukocyte Esterase (NEG) Urine RBC (0) /HPF Urine WBC (0-4) /HPF Ur Squamous Epith Cells /LPF Urine Bacteria /LPF Urine Opiates Screen (Not Detect) Ur Barbiturates Screen (Not Detect) Ur Phencyclidine Scrn (Not Detect) Ur Amphetamines Screen (Not Detect) U Benzodiazepines Scrn (Not Detect) Urine Cocaine Screen (Not Detect) U Marijuana (THC) Screen (Not Detect) Ethyl Alcohol mg/dL Coronavirus (PCR) (Negative) Influenza Type A (PCR) (Negative) Influenza Type B (PCR) (Negative) RSV RNA Qual (PCR) (Negative) 10/23/20 10/23/20 10/23/20 Range/Units 08:08 11:16 11:16 WBC (4.8-10.8) X10*3/uL RBC (4.20-5.50) X10*6/uL Hgb (12.0-16.0) g/dl Hct (37-47) % MCV (80-98) fL MCH (27.0-33.0) pg MCHC (31.0-35.0) g/dl RDW (11.0-16.0) % Plt Count (160-400) X10*3/uL MPV (9.4-12.3) fL Immature Gran % (Auto) (0.0-0.4) % Neut % (Auto) (45-73) % Lymph % (Auto) (20-40) % [place] % (Auto) (2-11) % Eos % (Auto) (0-4) % Baso % (Auto) (0-2) % Lymph # (Auto) (1.2-4.9) X10*3/uL [place] # (Auto) (0.1-1.2) X10*3/uL Eos # (Auto) (0.0-0.4) X10*3/uL Baso # (Auto) (0.0-0.2) X10*3/uL Abs Immat Gran (auto) (0.00-0.03) X10*3/uL Absolute Neuts (auto) (2.0-8.3) X10*3/uL Absolute Nucleated RBC (0.0-0.012) X10*3/uL Nucleated RBC % (auto) (0.0-0.2) /100WBC PT (10.8-13.0) SEC INR (0.9-1.1) Sodium (135-145) mmol/L Potassium (3.3-5.1) mmol/l Chloride (96-108) mmol/L Carbon Dioxide (22-29) mmol/L Anion Gap (12-20) BUN (9-16) mg/dL Creatinine (0.5-1.4) mg/dL Estim Creat Clear Calc Estimated GFR POC Glucose (60-115) mg/dL Random Glucose (60-115) mg/dL Calcium (8.4-10.2) mg/dL Magnesium (1.6-2.6) mg/dL Total Bilirubin (0.0-1.0) mg/dL Direct Bilirubin (0.0-0.5) mg/dL AST (5-31) U/L ALT (0-31) U/L Alkaline Phosphatase (39-117) U/L Total Creatine Kinase (26-140) U/L Troponin I High Sens 13.2 (<3.5-17.0) ng/L B-Natriuretic Peptide (<100) pg/mL Total Protein (6.5-8.0) g/dL Albumin (3.5-5.0) g/dL Urine Color YELLOW Urine Appearance CLOUDY Urine pH 6.0 (5.0-8.0) Ur Specific [place] 1.020 (1.005-1.025) Urine Protein 1+ H (NEG-TRACE) MG/DL Urine Glucose (UA) NEG (NEG) MG/DL Urine Ketones NEG (NEG) MG/DL Urine Blood 3+ H (NEG) Urine Nitrite NEG (NEG) Ur Leukocyte Esterase 2+ H (NEG) Urine RBC 1-4 (0) /HPF Urine WBC TNTC H (0-4) /HPF Ur Squamous Epith Cells NONE /LPF Urine Bacteria 2+ /LPF Urine Opiates Screen Not Detected (Not Detect) Ur Barbiturates Screen Not Detected (Not Detect) Ur Phencyclidine Scrn Not Detected (Not Detect) Ur Amphetamines Screen Not Detected (Not Detect) U Benzodiazepines Scrn Not Detected (Not Detect) Urine Cocaine Screen Not Detected (Not Detect) U Marijuana (THC) Screen POSITIVE H (Not Detect) Ethyl Alcohol mg/dL Coronavirus (PCR) (Negative) Influenza Type A (PCR) (Negative) Influenza Type B (PCR) (Negative) RSV RNA Qual (PCR) (Negative) 10/23/20 10/23/20 10/23/20 Range/Units 12:34 17:43 22:36 WBC (4.8-10.8) X10*3/uL RBC (4.20-5.50) X10*6/uL Hgb (12.0-16.0) g/dl Hct (37-47) % MCV (80-98) fL MCH (27.0-33.0) pg MCHC (31.0-35.0) g/dl RDW (11.0-16.0) % Plt Count (160-400) X10*3/uL MPV (9.4-12.3) fL Immature Gran % (Auto) (0.0-0.4) % Neut % (Auto) (45-73) % Lymph % (Auto) (20-40) % Pepin % (Auto) (2-11) % Eos % (Auto) (0-4) % Baso % (Auto) (0-2) % Lymph # (Auto) (1.2-4.9) X10*3/uL Pepin # (Auto) (0.1-1.2) X10*3/uL Eos # (Auto) (0.0-0.4) X10*3/uL Baso # (Auto) (0.0-0.2) X10*3/uL Abs Immat Gran (auto) (0.00-0.03) X10*3/uL Absolute Neuts (auto) (2.0-8.3) X10*3/uL Absolute Nucleated RBC (0.0-0.012) X10*3/uL Nucleated RBC % (auto) (0.0-0.2) /100WBC PT (10.8-13.0) SEC INR (0.9-1.1) Sodium (135-145) mmol/L Potassium (3.3-5.1) mmol/l Chloride (96-108) mmol/L Carbon Dioxide (22-29) mmol/L Anion Gap (12-20) BUN (9-16) mg/dL Creatinine (0.5-1.4) mg/dL Estim Creat Clear Calc Estimated GFR POC Glucose 101 120 H 105 (60-115) mg/dL Random Glucose (60-115) mg/dL Calcium (8.4-10.2) mg/dL Magnesium (1.6-2.6) mg/dL Total Bilirubin (0.0-1.0) mg/dL Direct Bilirubin (0.0-0.5) mg/dL AST (5-31) U/L ALT (0-31) U/L Alkaline Phosphatase (39-117) U/L Total Creatine Kinase (26-140) U/L Troponin I High Sens (<3.5-17.0) ng/L B-Natriuretic Peptide (<100) pg/mL Total Protein (6.5-8.0) g/dL Albumin (3.5-5.0) g/dL Urine Color Urine Appearance Urine pH (5.0-8.0) Ur Specific [place] (1.005-1.025) Urine Protein (NEG-TRACE) MG/DL Urine Glucose (UA) (NEG) MG/DL Urine Ketones (NEG) MG/DL Urine Blood (NEG) Urine Nitrite (NEG) Ur Leukocyte Esterase (NEG) Urine RBC (0) /HPF Urine WBC (0-4) /HPF Ur Squamous Epith Cells /LPF Urine Bacteria /LPF Urine Opiates Screen (Not Detect) Ur Barbiturates Screen (Not Detect) Ur Phencyclidine Scrn (Not Detect) Ur Amphetamines Screen (Not Detect) U Benzodiazepines Scrn (Not Detect) Urine Cocaine Screen (Not Detect) U Marijuana (THC) Screen (Not Detect) Ethyl Alcohol mg/dL Coronavirus (PCR) (Negative) Influenza Type A (PCR) (Negative) Influenza Type B (PCR) (Negative) RSV RNA Qual (PCR) (Negative) <Rao Mandujano MD - Last Filed: 10/23/20 16:36> Lab Results 10/22/20 10/22/20 10/22/20 Range/Units 11:33 11:59 11:59 WBC (4.8-10.8) X10*3/uL RBC (4.20-5.50) X10*6/uL Hgb (12.0-16.0) g/dl Hct (37-47) % MCV (80-98) fL MCH (27.0-33.0) pg MCHC (31.0-35.0) g/dl RDW (11.0-16.0) % Plt Count (160-400) X10*3/uL MPV (9.4-12.3) fL Immature Gran % (Auto) (0.0-0.4) % Neut % (Auto) (45-73) % Lymph % (Auto) (20-40) % Pepin % (Auto) (2-11) % Eos % (Auto) (0-4) % Baso % (Auto) (0-2) % Lymph # (Auto) (1.2-4.9) X10*3/uL Pepin # (Auto) (0.1-1.2) X10*3/uL Eos # (Auto) (0.0-0.4) X10*3/uL Baso # (Auto) (0.0-0.2) X10*3/uL Abs Immat Gran (auto) (0.00-0.03) X10*3/uL Absolute Neuts (auto) (2.0-8.3) X10*3/uL Absolute Nucleated RBC (0.0-0.012) X10*3/uL Nucleated RBC % (auto) (0.0-0.2) /100WBC PT (10.8-13.0) SEC INR (0.9-1.1) Sodium (135-145) mmol/L Potassium (3.3-5.1) mmol/l Chloride (96-108) mmol/L Carbon Dioxide (22-29) mmol/L Anion Gap (12-20) BUN (9-16) mg/dL Creatinine (0.5-1.4) mg/dL Estim Creat Clear Calc Estimated GFR POC Glucose 82 (60-115) mg/dL Random Glucose (60-115) mg/dL Calcium (8.4-10.2) mg/dL Magnesium (1.6-2.6) mg/dL Total Bilirubin (0.0-1.0) mg/dL Direct Bilirubin (0.0-0.5) mg/dL AST (5-31) U/L ALT (0-31) U/L Alkaline Phosphatase (39-117) U/L Total Creatine Kinase 36 (26-140) U/L Troponin I High Sens 7.9 (<3.5-17.0) ng/L B-Natriuretic Peptide 125 H (<100) pg/mL Total Protein (6.5-8.0) g/dL Albumin (3.5-5.0) g/dL Urine Color Urine Appearance Urine pH (5.0-8.0) Ur Specific [place] (1.005-1.025) Urine Protein (NEG-TRACE) MG/DL Urine Glucose (UA) (NEG) MG/DL Urine Ketones (NEG) MG/DL Urine Blood (NEG) Urine Nitrite (NEG) Ur Leukocyte Esterase (NEG) Urine RBC (0) /HPF Urine WBC (0-4) /HPF Ur Squamous Epith Cells /LPF Urine Bacteria /LPF Urine Opiates Screen (Not Detect) Ur Barbiturates Screen (Not Detect) Ur Phencyclidine Scrn (Not Detect) Ur Amphetamines Screen (Not Detect) U Benzodiazepines Scrn (Not Detect) Urine Cocaine Screen (Not Detect) U Marijuana (THC) Screen (Not Detect) Ethyl Alcohol mg/dL Coronavirus (PCR) (Negative) Influenza Type A (PCR) (Negative) Influenza Type B (PCR) (Negative) RSV RNA Qual (PCR) (Negative) 10/22/20 10/22/20 10/22/20 Range/Units 12:00 12:43 12:43 WBC 6.7 (4.8-10.8) X10*3/uL RBC 3.54 L (4.20-5.50) X10*6/uL Hgb 11.0 L (12.0-16.0) g/dl Hct 32.6 L (37-47) % MCV 92.1 (80-98) fL MCH 31.1 (27.0-33.0) pg MCHC 33.7 (31.0-35.0) g/dl RDW 12.9 (11.0-16.0) % Plt Count 359 (160-400) X10*3/uL MPV 9.2 L (9.4-12.3) fL Immature Gran % (Auto) 0.9 H (0.0-0.4) % Neut % (Auto) 59.7 (45-73) % Lymph % (Auto) 27.8 (20-40) % Pepin % (Auto) 11.1 H (2-11) % Eos % (Auto) 0.1 (0-4) % Baso % (Auto) 0.4 (0-2) % Lymph # (Auto) 1.9 (1.2-4.9) X10*3/uL [place] # (Auto) 0.8 (0.1-1.2) X10*3/uL Eos # (Auto) 0.0 (0.0-0.4) X10*3/uL Baso # (Auto) 0.0 (0.0-0.2) X10*3/uL Abs Immat Gran (auto) 0.06 H (0.00-0.03) X10*3/uL Absolute Neuts (auto) 4.0 (2.0-8.3) X10*3/uL Absolute Nucleated RBC 0.000 (0.0-0.012) X10*3/uL Nucleated RBC % (auto) 0.0 (0.0-0.2) /100WBC PT 11.5 (10.8-13.0) SEC INR 1.0 (0.9-1.1) Sodium (135-145) mmol/L Potassium (3.3-5.1) mmol/l Chloride (96-108) mmol/L Carbon Dioxide (22-29) mmol/L Anion Gap (12-20) BUN (9-16) mg/dL Creatinine (0.5-1.4) mg/dL Estim Creat Clear Calc Estimated GFR POC Glucose (60-115) mg/dL Random Glucose (60-115) mg/dL Calcium (8.4-10.2) mg/dL Magnesium (1.6-2.6) mg/dL Total Bilirubin (0.0-1.0) mg/dL Direct Bilirubin (0.0-0.5) mg/dL AST (5-31) U/L ALT (0-31) U/L Alkaline Phosphatase (39-117) U/L Total Creatine Kinase (26-140) U/L Troponin I High Sens (<3.5-17.0) ng/L B-Natriuretic Peptide (<100) pg/mL Total Protein (6.5-8.0) g/dL Albumin (3.5-5.0) g/dL Urine Color Urine Appearance Urine pH (5.0-8.0) Ur Specific [place] (1.005-1.025) Urine Protein (NEG-TRACE) MG/DL Urine Glucose (UA) (NEG) MG/DL Urine Ketones (NEG) MG/DL Urine Blood (NEG) Urine Nitrite (NEG) Ur Leukocyte Esterase (NEG) Urine RBC (0) /HPF Urine WBC (0-4) /HPF Ur Squamous Epith Cells /LPF Urine Bacteria /LPF Urine Opiates Screen (Not Detect) Ur Barbiturates Screen (Not Detect) Ur Phencyclidine Scrn (Not Detect) Ur Amphetamines Screen (Not Detect) U Benzodiazepines Scrn (Not Detect) Urine Cocaine Screen (Not Detect) U Marijuana (THC) Screen (Not Detect) Ethyl Alcohol mg/dL Coronavirus (PCR) NEGATIVE (Negative) Influenza Type A (PCR) NEGATIVE (Negative) Influenza Type B (PCR) NEGATIVE (Negative) RSV RNA Qual (PCR) NEGATIVE (Negative) 10/22/20 10/22/20 10/22/20 Range/Units 12:43 12:43 15:19 WBC (4.8-10.8) X10*3/uL RBC (4.20-5.50) X10*6/uL Hgb (12.0-16.0) g/dl Hct (37-47) % MCV (80-98) fL MCH (27.0-33.0) pg MCHC (31.0-35.0) g/dl RDW (11.0-16.0) % Plt Count (160-400) X10*3/uL MPV (9.4-12.3) fL Immature Gran % (Auto) (0.0-0.4) % Neut % (Auto) (45-73) % Lymph % (Auto) (20-40) % Pepin % (Auto) (2-11) % Eos % (Auto) (0-4) % Baso % (Auto) (0-2) % Lymph # (Auto) (1.2-4.9) X10*3/uL Pepin # (Auto) (0.1-1.2) X10*3/uL Eos # (Auto) (0.0-0.4) X10*3/uL Baso # (Auto) (0.0-0.2) X10*3/uL Abs Immat Gran (auto) (0.00-0.03) X10*3/uL Absolute Neuts (auto) (2.0-8.3) X10*3/uL Absolute Nucleated RBC (0.0-0.012) X10*3/uL Nucleated RBC % (auto) (0.0-0.2) /100WBC PT (10.8-13.0) SEC INR (0.9-1.1) Sodium 134 L (135-145) mmol/L Potassium 5.6 H (3.3-5.1) mmol/l Chloride 98 (96-108) mmol/L Carbon Dioxide 25 (22-29) mmol/L Anion Gap 17 (12-20) BUN 31 H (9-16) mg/dL Creatinine 1.44 H (0.5-1.4) mg/dL Estim Creat Clear Calc 42.4 Estimated GFR 36 POC Glucose (60-115) mg/dL Random Glucose 97 (60-115) mg/dL Calcium 8.9 (8.4-10.2) mg/dL Magnesium 2.3 (1.6-2.6) mg/dL Total Bilirubin 0.3 (0.0-1.0) mg/dL Direct Bilirubin 0.2 (0.0-0.5) mg/dL AST 25 (5-31) U/L ALT 25 (0-31) U/L Alkaline Phosphatase 84 (39-117) U/L Total Creatine Kinase (26-140) U/L Troponin I High Sens 9.3 (<3.5-17.0) ng/L B-Natriuretic Peptide (<100) pg/mL Total Protein 7.1 (6.5-8.0) g/dL Albumin 3.7 (3.5-5.0) g/dL Urine Color Urine Appearance Urine pH (5.0-8.0) Ur Specific [place] (1.005-1.025) Urine Protein (NEG-TRACE) MG/DL Urine Glucose (UA) (NEG) MG/DL Urine Ketones (NEG) MG/DL Urine Blood (NEG) Urine Nitrite (NEG) Ur Leukocyte Esterase (NEG) Urine RBC (0) /HPF Urine WBC (0-4) /HPF Ur Squamous Epith Cells /LPF Urine Bacteria /LPF Urine Opiates Screen (Not Detect) Ur Barbiturates Screen (Not Detect) Ur Phencyclidine Scrn (Not Detect) Ur Amphetamines Screen (Not Detect) U Benzodiazepines Scrn (Not Detect) Urine Cocaine Screen (Not Detect) U Marijuana (THC) Screen (Not Detect) Ethyl Alcohol 103 mg/dL Coronavirus (PCR) (Negative) Influenza Type A (PCR) (Negative) Influenza Type B (PCR) (Negative) RSV RNA Qual (PCR) (Negative) 10/22/20 10/23/20 10/23/20 Range/Units 16:22 02:32 07:48 WBC (4.8-10.8) X10*3/uL RBC (4.20-5.50) X10*6/uL Hgb (12.0-16.0) g/dl Hct (37-47) % MCV (80-98) fL MCH (27.0-33.0) pg MCHC (31.0-35.0) g/dl RDW (11.0-16.0) % Plt Count (160-400) X10*3/uL MPV (9.4-12.3) fL Immature Gran % (Auto) (0.0-0.4) % Neut % (Auto) (45-73) % Lymph % (Auto) (20-40) % Pepin % (Auto) (2-11) % Eos % (Auto) (0-4) % Baso % (Auto) (0-2) % Lymph # (Auto) (1.2-4.9) X10*3/uL Pepin # (Auto) (0.1-1.2) X10*3/uL Eos # (Auto) (0.0-0.4) X10*3/uL Baso # (Auto) (0.0-0.2) X10*3/uL Abs Immat Gran (auto) (0.00-0.03) X10*3/uL Absolute Neuts (auto) (2.0-8.3) X10*3/uL Absolute Nucleated RBC (0.0-0.012) X10*3/uL Nucleated RBC % (auto) (0.0-0.2) /100WBC PT (10.8-13.0) SEC INR (0.9-1.1) Sodium 137 (135-145) mmol/L Potassium 4.7 (3.3-5.1) mmol/l Chloride 99 (96-108) mmol/L Carbon Dioxide 24 (22-29) mmol/L Anion Gap 19 (12-20) BUN 33 H (9-16) mg/dL Creatinine 1.48 H (0.5-1.4) mg/dL Estim Creat Clear Calc 41.3 Estimated GFR 35 POC Glucose 135 H (60-115) mg/dL Random Glucose 113 (60-115) mg/dL Calcium 9.0 (8.4-10.2) mg/dL Magnesium (1.6-2.6) mg/dL Total Bilirubin (0.0-1.0) mg/dL Direct Bilirubin (0.0-0.5) mg/dL AST (5-31) U/L ALT (0-31) U/L Alkaline Phosphatase (39-117) U/L Total Creatine Kinase (26-140) U/L Troponin I High Sens 13.5 (<3.5-17.0) ng/L B-Natriuretic Peptide (<100) pg/mL Total Protein (6.5-8.0) g/dL Albumin (3.5-5.0) g/dL Urine Color Urine Appearance Urine pH (5.0-8.0) Ur Specific [place] (1.005-1.025) Urine Protein (NEG-TRACE) MG/DL Urine Glucose (UA) (NEG) MG/DL Urine Ketones (NEG) MG/DL Urine Blood (NEG) Urine Nitrite (NEG) Ur Leukocyte Esterase (NEG) Urine RBC (0) /HPF Urine WBC (0-4) /HPF Ur Squamous Epith Cells /LPF Urine Bacteria /LPF Urine Opiates Screen (Not Detect) Ur Barbiturates Screen (Not Detect) Ur Phencyclidine Scrn (Not Detect) Ur Amphetamines Screen (Not Detect) U Benzodiazepines Scrn (Not Detect) Urine Cocaine Screen (Not Detect) U Marijuana (THC) Screen (Not Detect) Ethyl Alcohol mg/dL Coronavirus (PCR) (Negative) Influenza Type A (PCR) (Negative) Influenza Type B (PCR) (Negative) RSV RNA Qual (PCR) (Negative) 10/23/20 10/23/20 10/23/20 Range/Units 08:08 11:16 11:16 WBC (4.8-10.8) X10*3/uL RBC (4.20-5.50) X10*6/uL Hgb (12.0-16.0) g/dl Hct (37-47) % MCV (80-98) fL MCH (27.0-33.0) pg MCHC (31.0-35.0) g/dl RDW (11.0-16.0) % Plt Count (160-400) X10*3/uL MPV (9.4-12.3) fL Immature Gran % (Auto) (0.0-0.4) % Neut % (Auto) (45-73) % Lymph % (Auto) (20-40) % Pep[place] % (Auto) (2-11) % Eos % (Auto) (0-4) % Baso % (Auto) (0-2) % Lymph # (Auto) (1.2-4.9) X10*3/uL Pepin # (Auto) (0.1-1.2) X10*3/uL Eos # (Auto) (0.0-0.4) X10*3/uL Baso # (Auto) (0.0-0.2) X10*3/uL Abs Immat Gran (auto) (0.00-0.03) X10*3/uL Absolute Neuts (auto) (2.0-8.3) X10*3/uL Absolute Nucleated RBC (0.0-0.012) X10*3/uL Nucleated RBC % (auto) (0.0-0.2) /100WBC PT (10.8-13.0) SEC INR (0.9-1.1) Sodium (135-145) mmol/L Potassium (3.3-5.1) mmol/l Chloride (96-108) mmol/L Carbon Dioxide (22-29) mmol/L Anion Gap (12-20) BUN (9-16) mg/dL Creatinine (0.5-1.4) mg/dL Estim Creat Clear Calc Estimated GFR POC Glucose (60-115) mg/dL Random Glucose (60-115) mg/dL Calcium (8.4-10.2) mg/dL Magnesium (1.6-2.6) mg/dL Total Bilirubin (0.0-1.0) mg/dL Direct Bilirubin (0.0-0.5) mg/dL AST (5-31) U/L ALT (0-31) U/L Alkaline Phosphatase (39-117) U/L Total Creatine Kinase (26-140) U/L Troponin I High Sens 13.2 (<3.5-17.0) ng/L B-Natriuretic Peptide (<100) pg/mL Total Protein (6.5-8.0) g/dL Albumin (3.5-5.0) g/dL Urine Color YELLOW Urine Appearance CLOUDY Urine pH 6.0 (5.0-8.0) Ur Specific [place] 1.020 (1.005-1.025) Urine Protein 1+ H (NEG-TRACE) MG/DL Urine Glucose (UA) NEG (NEG) MG/DL Urine Ketones NEG (NEG) MG/DL Urine Blood 3+ H (NEG) Urine Nitrite NEG (NEG) Ur Leukocyte Esterase 2+ H (NEG) Urine RBC 1-4 (0) /HPF Urine WBC TNTC H (0-4) /HPF Ur Squamous Epith Cells NONE /LPF Urine Bacteria 2+ /LPF Urine Opiates Screen Not Detected (Not Detect) Ur Barbiturates Screen Not Detected (Not Detect) Ur Phencyclidine Scrn Not Detected (Not Detect) Ur Amphetamines Screen Not Detected (Not Detect) U Benzodiazepines Scrn Not Detected (Not Detect) Urine Cocaine Screen Not Detected (Not Detect) U Marijuana (THC) Screen POSITIVE H (Not Detect) Ethyl Alcohol mg/dL Coronavirus (PCR) (Negative) Influenza Type A (PCR) (Negative) Influenza Type B (PCR) (Negative) RSV RNA Qual (PCR) (Negative) 10/23/20 10/23/20 10/23/20 Range/Units 12:34 17:43 22:36 WBC (4.8-10.8) X10*3/uL RBC (4.20-5.50) X10*6/uL Hgb (12.0-16.0) g/dl Hct (37-47) % MCV (80-98) fL MCH (27.0-33.0) pg MCHC (31.0-35.0) g/dl RDW (11.0-16.0) % Plt Count (160-400) X10*3/uL MPV (9.4-12.3) fL Immature Gran % (Auto) (0.0-0.4) % Neut % (Auto) (45-73) % Lymph % (Auto) (20-40) % Pepin % (Auto) (2-11) % Eos % (Auto) (0-4) % Baso % (Auto) (0-2) % Lymph # (Auto) (1.2-4.9) X10*3/uL Pepin # (Auto) (0.1-1.2) X10*3/uL Eos # (Auto) (0.0-0.4) X10*3/uL Baso # (Auto) (0.0-0.2) X10*3/uL Abs Immat Gran (auto) (0.00-0.03) X10*3/uL Absolute Neuts (auto) (2.0-8.3) X10*3/uL Absolute Nucleated RBC (0.0-0.012) X10*3/uL Nucleated RBC % (auto) (0.0-0.2) /100WBC PT (10.8-13.0) SEC INR (0.9-1.1) Sodium (135-145) mmol/L Potassium (3.3-5.1) mmol/l Chloride (96-108) mmol/L Carbon Dioxide (22-29) mmol/L Anion Gap (12-20) BUN (9-16) mg/dL Creatinine (0.5-1.4) mg/dL Estim Creat Clear Calc Estimated GFR POC Glucose 101 120 H 105 (60-115) mg/dL Random Glucose (60-115) mg/dL Calcium (8.4-10.2) mg/dL Magnesium (1.6-2.6) mg/dL Total Bilirubin (0.0-1.0) mg/dL Direct Bilirubin (0.0-0.5) mg/dL AST (5-31) U/L ALT (0-31) U/L Alkaline Phosphatase (39-117) U/L Total Creatine Kinase (26-140) U/L Troponin I High Sens (<3.5-17.0) ng/L B-Natriuretic Peptide (<100) pg/mL Total Protein (6.5-8.0) g/dL Albumin (3.5-5.0) g/dL Urine Color Urine Appearance Urine pH (5.0-8.0) Ur Specific [place] (1.005-1.025) Urine Protein (NEG-TRACE) MG/DL Urine Glucose (UA) (NEG) MG/DL Urine Ketones (NEG) MG/DL Urine Blood (NEG) Urine Nitrite (NEG) Ur Leukocyte Esterase (NEG) Urine RBC (0) /HPF Urine WBC (0-4) /HPF Ur Squamous Epith Cells /LPF Urine Bacteria /LPF Urine Opiates Screen (Not Detect) Ur Barbiturates Screen (Not Detect) Ur Phencyclidine Scrn (Not Detect) Ur Amphetamines Screen (Not Detect) U Benzodiazepines Scrn (Not Detect) Urine Cocaine Screen (Not Detect) U Marijuana (THC) Screen (Not Detect) Ethyl Alcohol mg/dL Coronavirus (PCR) (Negative) Influenza Type A (PCR) (Negative) Influenza Type B (PCR) (Negative) RSV RNA Qual (PCR) (Negative) <Yolande Levy DO - Last Filed: 10/24/20 06:42> Imaging Data CT scan of brain/cervical spine: Attestation: I personally reviewed and interpreted this imaging study as follows: <ALICIA Hanson - Last Filed: 10/22/20 17:35> Radiologist's impression: FINDINGS: Head CT: There is no evidence of an extra-axial collection. There is no evidence of intra-axial or extra-axial hemorrhage. The ventricles and extra-axial CSF spaces are slightly prominent suggestive of mild generalized atrophy.. There is nonspecific periventricular white matter disease. No mass, mass effect or infarct is seen. There is chronic soft tissue opacification of the bilateral mastoid air cells and right middle ear. The left middle ear is clear however ossicle are not seen. There is minimal soft tissue opacification of the right maxillary sinus. The paranasal sinuses are otherwise clear. No skull fracture is seen. There is bilateral frontal hyperostosis. Cervical spine: Exam is limited due to motion artifact. Bone alignment is normal. No fracture or dislocation is seen. There is severe degenerative spondylosis and large bridging vertebral body bony osteophytes and degenerative disc disease, greatest at C3-C4 C4-C5 C5-C6 and C6-C7. There is bilateral multilevel facet arthritis, left greater than right. There are degenerative changes of the dens articulation. Prevertebral soft tissues are normal. The visualized lung apices are clear. CT/CT cervical spine wo con IMPRESSION: Head CT: No acute findings. Cervical spine: Limited due to motion artifact. Severe degenerative changes. No fracture or dislocation seen. <ALICIA Hanson - Last Filed: 10/22/20 17:35> chest x-ray and right shoulder x-ray: Attestation: I personally reviewed and interpreted this imaging study as follows: <ALICIA Hanson Last Filed: 10/22/20 17:35> Radiologist's impression: FINDINGS: CHEST: The lungs are well-expanded and clear of acute process. Heart size and pulmonary vascularity is normal. No gross bony abnormality seen. RIGHT SHOULDER: There is significant loss of glenohumeral and AC joint space without bony erosive changes. No loose body seen. No soft tissue calcification seen. XR/XR chest 2V IMPRESSION: Unremarkable chest exam. Degenerative disc changes right shoulder joint <ALICIA Hanosn - Last Filed: 10/22/20 17:35> ECG Data Attestation: I personally reviewed and interpreted this ECG as follows: <ALICIA Hanson - Last Filed: 10/22/20 17:35> ECG interpretation date: 10/22/20 <ALICIA Hanson - Last Filed: 10/22/20 17:35> ECG interpretation time: 11:32 <ALICIA Hanson - Last Filed: 10/22/20 17:35> Interpretation: Normal sinus rhythm with a ventricular rate of 78 with nonspecific T-wave abnormality although no acute ischemic changes and similar compared to prior EKG on 10/11/2020. <ALICIA Hanson Last Filed: 10/22/20 17:35> Critical Care Time Critical Care Time Critical Care Time: Yes <ALICIA Hanson - Last Filed: 10/22/20 17:35> Total Critical Care Time: 60 <ALICIA Hanson - Last Filed: 10/22/20 17:35> Attestation: I personally attest to this time spent taking care of the patient <ALICIA Hanson - Last Filed: 10/22/20 17:35> Discharge Plan Discharge Clinical Impression: Hyperkalemia Fall Qualifiers: Encounter type: initial encounter Qualified Code(s): W19.XXXA - Unspecified fall, initial encounter Acute alcohol intoxication Qualifiers: Complication of substance-induced condition: with unspecified complication Qualified Code(s): F10.929 - Alcohol use, unspecified with intoxication, unspecified Chronic kidney failure Qualifiers: Chronic kidney disease stage: unspecified stage Qualified Code(s): N18.9 - Chronic kidney disease, unspecified Sprain of right shoulder Qualifiers: Encounter type: initial encounter <ALICIA Hanson - Last Filed: 10/22/20 17:35> Prescriptions: No Action ipratropium-albuterol 0.5 mg-3 mg(2.5 mg base)/3 mL solution for nebulization 1 amp inhalation QID PRN (Reason: Shortness Of Breath Or Wheezing) RF: 0 citalopram 40 mg tablet 40 mg PO QAM RF: 0 aspirin 81 mg tablet,delayed release (DR/EC) 81 mg PO BEDTIME RF: 0 montelukast 10 mg tablet 10 mg PO QPM RF: 0 Flovent HFA 220 mcg/actuation HFA aerosol inhaler 1 puff inhalation BID RF: 0 albuterol sulfate [Ventolin HFA] 90 mcg/actuation HFA aerosol inhaler 2 puff inhalation Q4-6H PRN (Reason: Shortness Of Breath Or Wheezing) RF: 0 thiamine HCl (vitamin B1) 100 mg Tablet 100 mg PO DAILY Qty: 30 RF: 0 folic acid 1 mg Tablet 1 mg PO DAILY Qty: 30 RF: 0 insulin lispro [Humalog U-100 Insulin] 100 unit/mL Solution 1 sliding scale dose subcut QIDACHS Qty: 10 RF: 0 sennosides [senna] 8.6 mg Tablet 8.6 mg PO BID RF: 0 clonazepam 1 mg Tablet 1 mg PO BID RF: 0 acetaminophen 650 mg Tablet Extended Release 650 mg PO Q12H PRN (Reason: Pain) RF: 0 baclofen 20 mg Tablet 20 mg PO DAILY PRN (Reason: Pain) RF: 0 pravastatin 20 mg Tablet 20 mg PO BEDTIME RF: 0 metoprolol succinate 25 mg Tablet Extended Release 24 Hr 25 mg PO DAILY RF: 0 quetiapine 50 mg Tablet 50 mg PO BID RF: 0 furosemide [Lasix] 20 mg tablet 20 mg PO QAM Qty: 30 RF: 0 furosemide [Lasix] 20 mg tablet 20 mg PO DAILY Qty: 30 RF: 0 cefdinir 300 mg capsule 300 mg PO BID 7 Days Qty: 14 RF: 0 <ALICIA Hanson - Last Filed: 10/22/20 17:35>
--- NOTE | 2020-10-22 12:35 | PC.NURSE ---
Addendum entered by Jeanette Robertson RN 10/22/20 12:36: Olga VARGAS aware of inability to obtain IV access. Original Note: Pt is a difficult stick. Unable to obtain IV access. Some blood obtained by PCT. The rest of blood to be drawn by another PCT when available.
[2020-10-22 12:45] LABS: Influenza A PCR NEGATIVE (Negative); Influenza B PCR NEGATIVE (Negative); Resp Syncy Virus RNA Qual PCR NEGATIVE (Negative); SARS COV2 PCR INHOUSE NEGATIVE (Negative)
[2020-10-22 12:47] LABS: MANUAL DIFF FLAG NO
[2020-10-22 12:50] LABS: Troponin-I High Sensitivity 7.9 ng/L (<3.5-17.0)
[2020-10-22 12:54] LABS: Basophils Percent Auto 0.4 % (0-2); Eosinophils Percent Auto 0.1 % (0-4); Hematocrit 32.6 % (37-47); Imm Gran Abs Auto 0.06 X10*3/uL (0.00-0.03); Imm Gran Pct Auto 0.9 % (0.0-0.4); Lymphocytes Absolute Auto 1.9 X10*3/uL (1.2-4.9); Lymphocytes Percent Auto 27.8 % (20-40); Mean Corpuscular HGB Conc 33.7 g/dl (31.0-35.0); Mean Corpuscular Hemoglobin 31.1 pg (27.0-33.0); Mean Corpuscular Volume 92.1 fL (80-98); Mean Platelet Volume 9.2 fL (9.4-12.3); Monocytes Absolute Auto 0.8 X10*3/uL (0.1-1.2); Monocytes Percent Auto 11.1 % (2-11); Neutrophils Percent Auto 59.7 % (45-73); Platelet Count 359 X10*3/uL (160-400); Red Blood Count 3.54 X10*6/uL (4.20-5.50); Red Cell Distribution Width 12.9 % (11.0-16.0); White Blood Count 6.7 X10*3/uL (4.8-10.8)
[2020-10-22 13:06] LABS: Prothrombin Time 11.5 SEC (10.8-13.0)
[2020-10-22 13:07] VITALS: BP 164/77; PULSE 83
[2020-10-22 13:10] VITALS: BP 165/76; PULSE 81
[2020-10-22 13:10] LABS: Ethanol 103 mg/dL
[2020-10-22 13:14] LABS: Alanine Aminotransferase 25 U/L (0-31); Albumin Level 3.7 g/dL (3.5-5.0); Alkaline Phosphatase 84 U/L (39-117); Anion Gap 17 (12-20); Aspartate Amino Transferase 25 U/L (5-31); Bilirubin Direct 0.2 mg/dL (0.0-0.5); Bilirubin Total 0.3 mg/dL (0.0-1.0); Blood Urea Nitrogen 31 mg/dL (9-16); Calcium 8.9 mg/dL (8.4-10.2); Carbon Dioxide 25 mmol/L (22-29); Chloride 98 mmol/L (96-108); Creatinine Clr Calc Pharmacy 42.4; Estimated Glomerular Filt Rate 36; Glucose Random 97 mg/dL (60-115); Magnesium 2.3 mg/dL (1.6-2.6); Potassium 5.6 mmol/l (3.3-5.1); Sodium 134 mmol/L (135-145); Total Protein 7.1 g/dL (6.5-8.0)
[2020-10-22 13:20] LABS: B Type Natriuretic Peptide 125 pg/mL (<100)
--- NOTE | 2020-10-22 13:45 | MHC.CM.ED ---
Received case management consult from ALICIA Espinoza. Patient was discharged from [facility] [place]. Patient refused to get off of the stretcher. EMS brought her back to [facility]. Patient was discharged home on 10/21 with Mel HENNESSY. BRIANNE was not able to sign her onto services because she was brought back to the ER due to a fall. Patient's HCP is invoked due to dementia. Juanjo is upset patient discharged home. He does not feel she can safely return home. Anticipate patient will be difficult to place. Referral broadcasted in alllscripts to all facilities within 20 miles that have a locked dementia unit and have Serbian speaking staff. Continue to monitor for d/c needs.
[2020-10-22] MEDS: Acetaminophen 325 MG TABLET 650 MG PO (14:15)
[2020-10-22] MEDS: Sodium Polystyrene Sulfon/Sorb 15 GM/60 ML ORAL.SUSP 30 GM PO (14:18)
[2020-10-22 15:20] VITALS: BP 160/76; PULSE 83; RESP 16; TEMP 36.8; O2SAT 100
[2020-10-22 15:57] LABS: Troponin-I High Sensitivity 9.3 ng/L (<3.5-17.0)
[2020-10-22] MEDS: LORazepam 2 MG/ML VIAL 1 MG IVPUSH (15:58)
[2020-10-22] MEDS: ondansetron HCL 4 MG/2 ML VIAL IVPUSH (15:58)
--- NOTE | 2020-10-22 16:00 | PC.NURSE ---
Pt got oob to have large watery BM after taking kayexcelate. Once back to bed she began to vomit. IV was started and IV zofran and ativan given. Pt was also mildly anxious at the time. PT is now sitting calmly in bed in no distress.
[2020-10-22 16:51] LABS: Anion Gap 19 (12-20); Blood Urea Nitrogen 33 mg/dL (9-16); Carbon Dioxide 24 mmol/L (22-29); Chloride 99 mmol/L (96-108); Creatinine Clr Calc Pharmacy 41.3; Estimated Glomerular Filt Rate 35; Glucose Random 113 mg/dL (60-115); Potassium 4.7 mmol/l (3.3-5.1); Sodium 137 mmol/L (135-145)
--- NOTE | 2020-10-22 17:54 | PC.NURSE ---
Pt appears comfortable. She is resting in bed with eyes closed.
--- NOTE | 2020-10-22 19:57 | MHC.CM.ED ---
Met with pt . [employer] used. HCP invoked. Juanjo Montelongo is HCP and ([phone]). Pt is pleasant. Tells CM she wants to go home and that she is safe. Pt does not remember falling at home. Unsure why she is here. Explained through bird trapper that she went to care home for rehab, but refused to stay. Need PT. Pt states she gets PT at home. Referrals pending. states she is unsafe to stay at home. At this point, only [facility] is reviewing. CM to follow for d/c needs
[2020-10-22 20:00] VITALS: BP 160/74; PULSE 86; RESP 16
[2020-10-22 22:00] VITALS: O2SAT 97
[2020-10-23] VITALS (13 sets, daily range): BP systolic 132–161; BP diastolic 49–84; PULSE 76–105; RESP 16–20; TEMP 36.7–37.6; O2SAT 94–100
--- NOTE | 2020-10-23 00:15 | PC.NURSE ---
PT RESTING IN STRETCHER, PT HAD LARGE AMT OF DIARRHEA IN STRETCHER. PT CLEANED UP AND NOW RESTING. PT DENIES ANY OTHER COMPLAINTS.
--- NOTE | 2020-10-23 01:53 | ECG_ITS ---
Test Reason : CHEST DISC Blood Pressure : / mmHG Vent. Rate : 107 BPM Atrial Rate : 107 BPM P-R Int : 150 ms QRS Dur : 082 ms QT Int : 360 ms P-R-T Axes : 057 -15 045 degrees QTc Int : 480 ms Sinus tachycardia with Premature atrial complexes Nonspecific T wave abnormality Abnormal ECG When compared with ECG of 22-OCT-2020 11:32, Premature atrial complexes are now Present Referred By: Broderick Caldwell Electronically Signed By:Wilber Kincaid
[2020-10-23 03:41] LABS: Troponin-I High Sensitivity 13.5 ng/L (<3.5-17.0)
--- NOTE | 2020-10-23 04:46 | PC.NURSE ---
PT ON BEDPAN.
[2020-10-23 07:51] LABS: Glucose, Whole Blood 135 mg/dL (60-115)
--- NOTE | 2020-10-23 08:31 | MHC.CM.ED ---
Patient remains in ER. Bed search broadcasted within 50 miles of patient's home for facilities that have locked unit and have Romansh speaking staff. Continue to monitor for d/c needs.
[2020-10-23 09:17] LABS: Troponin-I High Sensitivity 13.2 ng/L (<3.5-17.0)
[2020-10-23] MEDS: Furosemide 20 MG TABLET PO (09:57)
[2020-10-23] MEDS: Metoprolol Succinate ER 25 MG TAB.ER.24H PO (09:57)
[2020-10-23 11:28] LABS: Glucose Urine UA NEG (NEG); Leukocyte Esterase Urine 2+ (NEG); Nitrite Urine NEG (NEG); UACC Culture Trigger YES; Urine Blood 3+ (NEG); Urine Ketones NEG (NEG); Urine Protein 1+ MG/DL (NEG-TRACE)
[2020-10-23 11:29] LABS: Appearance Urine CLOUDY; Color Urine YELLOW
[2020-10-23 11:37] LABS: Bacteria Urine 2+ /LPF; WBC Urine TNTC /HPF (0-4)
[2020-10-23 11:50] LABS: Amphetamine Screen Urine Not Detected (Not Detect); Barbiturates, Urine Not Detected (Not Detect); Benzodiazepines Screen Urine Not Detected (Not Detect); Cannabinoid Screen Urine POSITIVE (Not Detect); Cocaine Screen Urine Not Detected (Not Detect); Opiate Screen Urine Not Detected (Not Detect); Phencyclidine Screen Urine Not Detected (Not Detect)
[2020-10-23] MEDS: Acetaminophen 325 MG TABLET 650 MG PO (12:38)
[2020-10-23 12:39] LABS: Glucose, Whole Blood 101 mg/dL (60-115)
--- NOTE | 2020-10-23 14:56 | MHC.CM.ED ---
Patient remains in ER. [facility] may be willing to accept patient tomorrow. They're requesting PASRR be filed. PASRR screen faxed by T/W. Do not anticipate to get exemption letter from [facility] before tomorrow, 10/24. Spoke with patient's sig other/HCP, Juanjo via telephone at [phone]. Juanjo told t/w he did not feel safe with patient coming home on Wednesday and he explained that to the person that called to discharge her home. Juanjo is the invoked HCP. He is agreeable to patient going to [facility]. He verbalizes she is not safe at home at this time. Anticipate patient will remain in ER overnight. Continue to monitor for d/c needs.
[2020-10-23 17:47] LABS: Glucose, Whole Blood 120 mg/dL (60-115)
[2020-10-23] MEDS: Albuterol/Iprat 2.5/0.5MG 3 ML AMPUL.NEB INHALE (20:20)
[2020-10-23 22:41] LABS: Glucose, Whole Blood 105 mg/dL (60-115)
[2020-10-23] MEDS: Montelukast Sodium 10 MG TABLET PO (22:50)
[2020-10-23] MEDS: QUEtiapine Fumarate 50 MG TABLET PO (22:50)
[2020-10-23] MEDS: Sennosides 8.6 MG TABLET PO (22:50)
[2020-10-23] MEDS: clonazePAM 1 MG TABLET PO (22:50)
[2020-10-23] MEDS: Aspirin Enteric Coated 81 MG TABLET.DR PO (22:50)
--- NOTE | 2020-10-23 22:56 | MHC.CM.ED ---
Resting off and on this shift. Ate well. Cooperative. Awaiting PASSR waiver. CM following for d/c needs
[2020-10-24] MEDS: Acetaminophen 325 MG TABLET 650 MG PO ×2 (05:50→20:24)
[2020-10-24 06:03] VITALS: BP 141/64; PULSE 88; RESP 18; O2SAT 98
[2020-10-24 07:37] LABS: Glucose, Whole Blood 129 mg/dL (60-115)
--- NOTE | 2020-10-24 07:39 | PC.NURSE ---
report taken from [facility] rn pt here for case mgmt tania, had refused previous snf placement. per recent notes, pt to be discharged to accepting snf w locked dementia unit this afternoon. per previous shift rn, pt does not have knowledge of impending dc today. poc glucose checked, no coverage indicated. given breakfast. pt sitting up at bedside eating on own, tolerating po w/o issue. sts no pain at this time. wctm for dc needs.
--- NOTE | 2020-10-24 07:39 | MHC.CM.ED ---
Patient remains in the ER. Waiting for PASRR exemption letter from [facility]. Continue to monitor for d/c needs.
--- NOTE | 2020-10-24 08:45 | MHC.CM.ED ---
Received call from Emily of [facility]. Emily stated [facility] was too far for the patient's sig other to travel to because he doesn't have a care. T/W explained patient was at [facility] for about 10 mins and then came back to us. She is a difficult placement. [facility] is the closest facility availability at this time. Otherwise, patient and sig other would be going to the [facility] or [facility]. Emily verbalized understanding and requested telephone call at [phone] when transportation is arranged. Continue to monitor for d/c needs.
[2020-10-24 09:32] VITALS: BP 141/64
[2020-10-24] MEDS: QUEtiapine Fumarate 50 MG TABLET PO ×2 (09:32→20:24)
[2020-10-24] MEDS: Escitalopram Oxalate 20 MG TABLET PO (09:32)
[2020-10-24] MEDS: Furosemide 20 MG TABLET PO (09:32)
[2020-10-24] MEDS: Thiamine HCL 100 MG TABLET PO (09:32)
[2020-10-24] MEDS: clonazePAM 1 MG TABLET PO ×2 (09:32→20:22)
[2020-10-24] MEDS: Metoprolol Succinate ER 25 MG TAB.ER.24H PO (09:32)
[2020-10-24] MEDS: Folic Acid 1 MG TABLET PO (09:34)
--- NOTE | 2020-10-24 09:39 | PC.NURSE ---
PT ABLE TO SIT UP AND TAKE MORNING MEDS, DAILY SENNA HELD D/T LARGE AMOUNT OF DIARRHEA YESTERDAY. PT BACK TO BED COMFORTABLY.
[2020-10-24 11:52] VITALS: PULSE 91; RESP 22; O2SAT 100
[2020-10-24 12:53] LABS: Glucose, Whole Blood 97 mg/dL (60-115)
[2020-10-24 15:21] VITALS: BP 134/72; PULSE 93; RESP 20; TEMP 37.2; O2SAT 98
--- NOTE | 2020-10-24 17:08 | PC.NURSE ---
Pt asking to leave, educated on reasons why she cannot and plan for placement with registration officer- pt became very upset, tearful. Pt re directed- now sitting on chair bedside. No apparent distress, ambulates with 1 asssist to commode.
[2020-10-24 17:43] LABS: Glucose, Whole Blood 124 mg/dL (60-115)
--- NOTE | 2020-10-24 18:40 | MHC.CM.ED ---
Pt yelling she wants to go home. RN and Game Design Instructor trying to speak with pt. CM offered to help. Pt crying. States she is leaving. Will walk home. Unable to reason with patient. Pt does have dementia. HCP invoked. Called HCP Juanjo. Explained interactions with patient. States he will speak with her. After speaking with pt, Juanjo tells CM that pt wants to go home and and that he will take her home. CM again spoke with Juanjo and explained that he had said he could not care for her, and that if she goes home and then comes back, it would be worse for her. Explained that decision was his, because the HCP is invoked. Juanjo again spoke with patient. Pt continues to demand to go home, Crying. Pt given a recliner and supper, still demands to go home. Explained to Juanjo, HCP, that I would like to consult my care transitions manager and that I wanted him to think about his decision and if he could really care for pt.
--- NOTE | 2020-10-24 18:50 | MHC.CM.ED ---
Addendum entered by Sonam Solis 10/24/20 19:38: When CM again spoke with Juanjo HCP, he stated very clearly that he wants the pt to come home. Agreeable to referrals to [facility] for services. Aware the CNM may not find services for home and that we would speak again in the am . Pt request CM to call after 9am Original Note: Spoke with Kenna Stinson about above incident. Recommends that CM speak to HCP about keeping pt overnight and placing referrals for [facility]. Sound plan. Spoke with Juanjo. Juanjo agrees with plan to keep pt overnight and discharge in the morning after 9am. Shelli VARGAS and RN aware of plan of care. Shelli agreeable to keeping pt overnight and discharging home tomorrow. Pt aware of plan and very much relieved. States Do not forget I am going home tomorrow . Pt speaking again with Juanjo on the phone. Referrals placed.
[2020-10-24 19:38] VITALS: RESP 16
[2020-10-24] MEDS: Sennosides 8.6 MG TABLET PO (20:21)
[2020-10-24] MEDS: Montelukast Sodium 10 MG TABLET PO (20:24)
[2020-10-24] MEDS: Aspirin Enteric Coated 81 MG TABLET.DR PO (20:24)
[2020-10-24] MEDS: Fluticasone Propionate 250 MCG BLST.W.DEV 1 PUFF INHALE (21:33)
[2020-10-24] MEDS: Pravastatin Sodium 20 MG TABLET PO (21:33)
[2020-10-24 22:02] LABS: Glucose, Whole Blood 88 mg/dL (60-115)
[2020-10-24 22:04] VITALS: BP 126/47; PULSE 90; RESP 18; TEMP 36.5; O2SAT 98
[2020-10-25] VITALS (7 sets, daily range): BP systolic 125–126; BP diastolic 47–63; PULSE 80–89; RESP 15–16; O2SAT 97–100
[2020-10-25] MEDS: Albuterol Sulfate 90 MCG 8 GM INHALER 2 PUFF INHALE ×2 (04:57→08:50)
[2020-10-25 08:20] LABS: Glucose, Whole Blood 214 mg/dL (60-115)
[2020-10-25] MEDS: Thiamine HCL 100 MG TABLET PO (08:28)
[2020-10-25] MEDS: Escitalopram Oxalate 20 MG TABLET PO (08:29)
[2020-10-25] MEDS: Metoprolol Succinate ER 25 MG TAB.ER.24H PO (08:29)
[2020-10-25] MEDS: clonazePAM 1 MG TABLET PO (08:29)
[2020-10-25] MEDS: QUEtiapine Fumarate 50 MG TABLET PO (08:29)
[2020-10-25] MEDS: Folic Acid 1 MG TABLET PO (08:29)
[2020-10-25] MEDS: Sennosides 8.6 MG TABLET PO (08:30)
[2020-10-25] MEDS: Insulin Lispro 100 UNIT/ML 3 ML VIAL SUBCUT (08:30)
[2020-10-25] MEDS: Fluticasone Propionate 250 MCG BLST.W.DEV 1 PUFF INHALE (08:48)
== END 2020-10-25 11:33 | disposition home or self-care (01) ==
PROVIDERS: Emergency Medicine; Physician Assistant Medical; Emergency Provider Emergency Medicine; PCP Internal Medicine Geriatric Medicine
DX: S43.401A Unspecified sprain of right shoulder joint, initial encounter (principal); W06.XXXA Fall from bed, initial encounter; Z91.81 History of falling; E87.5 Hyperkalemia; E11.22 Type 2 diabetes mellitus with diabetic chronic kidney disease; I12.9 Hypertensive chronic kidney disease with stage 1 through stage 4 chronic kidney disease, or unspecified chronic kidney disease; N18.9 Chronic kidney disease, unspecified; Y93.89 Activity, other specified; Y92.032 Bedroom in apartment as the place of occurrence of the external cause; Y99.9 Unspecified external cause status; F10.920 Alcohol use, unspecified with intoxication, uncomplicated; Y90.9 Presence of alcohol in blood, level not specified; Z20.822 Contact with and (suspected) exposure to COVID-19
CPT/HCPCS: 0241U; 36415; 70450; 71046; 72125; 73030; 80048; 80076; 80307; 80320; 81001; 81003; 82550; 82947; 83735; 83880; 84484; 85025; 85610; 87086; 87088; 87186; 93005; 94640; 99285; J2060; J2405

== ENCOUNTER 2020-11-03 23:16 | Inpatient (IN) | payer MEDICARE, MEDICAID, SELFPAY ==
--- NOTE | ~2020-11-03 | CT_ITS ---
EXAMINATION: CT ABDOMEN AND PELVIS WITHOUT CONTRAST CLINICAL INFORMATION: Lower abd pain . COMPARISON: 10/09/2020. TECHNIQUE: Multidetector volumetric imaging was performed from the superior aspect of the liver through the pubic symphysis without contrast per request. Sagittal and coronal reformatted images were obtained on the technologist workstation. This CT examination was performed using dose optimization techniques as appropriate, variously including the following: *Automated exposure control *Adjustment of mA and/or kV according to patient size (this includes techniques or standardized protocols for targeted exams where dose is matched to indication/reason for exam; i.e. extremities or head) *Use of iterative reconstruction technique DLP: 711 mGy-cm. FINDINGS: Images are degraded by extensive patient motion during acquisition. LUNG BASES: The visualized lung bases are unremarkable. LIVER, GALLBLADDER, BILIARY TREE: The non-contrast liver is normal in size, shape, and attenuation. No focal hepatic lesion or biliary ductal dilatation is present. The gallbladder is unremarkable with no evidence of radiopaque gallstones, gallbladder wall thickening, or obvious pericholecystic inflammatory changes. PANCREAS: Unremarkable. SPLEEN: Unremarkable. ADRENAL GLANDS: Unremarkable. KIDNEYS AND URETERS: The kidneys are normal in size, shape, and attenuation. No hydronephrosis, hydroureter, or calculi seen. No perinephric stranding. BLADDER: Unremarkable. GASTROINTESTINAL TRACT: Scattered colonic diverticulosis but no evidence for diverticulitis. Appendix is unremarkable. Visualized small bowel grossly unremarkable for the study ABDOMINAL WALL: No significant hernia is appreciated. LYMPHOVASCULAR STRUCTURES: Vascular calcification within the aorta iliac system. PELVIC VISCERA: Unremarkable. OSSEUS STRUCTURES: Multilevel degenerative changes in the spine in both hips. CT/CT abdomen pelvis wo con IMPRESSION: Examination is limited due to extensive patient motion during the acquisition. Chronic appearing changes are seen but I do not appreciate any definitive acute intra-abdominal process..
--- NOTE | ~2020-11-03 | CT_ITS ---
EXAMINATIONS: CT HEAD WITHOUT CONTRAST AND CT CERVICAL SPINE WITHOUT CONTRAST CLINICAL INFORMATION: Fall. COMPARISON: 10/22/2020. TECHNIQUE: Contiguous helical images of the brain were obtained without IV contrast. Contiguous helical images of the cervical spine were obtained without IV contrast. Multiplanar reconstructions were performed. DLP: 1409 mGy-cm. FINDINGS: There are no pathologic extra-axial fluid collections. The lateral, third, fourth ventricles are nondilated and concordant with the appearance of the sulci. There is no evidence for acute intraparenchymal hemorrhage or infarct. There is neither mass nor mass effect. There is no shift of midline structures. The paranasal sinuses are clear. There is bilateral mastoid opacification. There are no osseous lesions. The cervical vertebra are in normal alignment. There is multilevel disc height loss with anterior osteophyte formation within the mid and lower cervical spine. Vertebral body heights are well-preserved. There are no fractures. There is no prevertebral soft tissue swelling. There is no cervical lymphadenopathy. The visualized lung apices are clear. CT/CT head/brain wo con IMPRESSION: No evidence for acute intracranial injury. No evidence for acute injury to the cervical spine. Moderate degenerative change within the cervical spine. Automated exposure control (Care Dose) Adjustment of the mA and/or kv according to patient size (this includes techniques or standardized protocols for targeted exams where dose is matched to indication / reason for exam; i.e. extremities or head).
--- NOTE | ~2020-11-03 | XR_ITS ---
EXAMINATION: SHOULDER 3 VIEWS, RIGHT CLINICAL INFORMATION: Pain after fall. COMPARISON: 10/22/2020.. TECHNIQUE: AP views of the right shoulder were obtained in internal and external rotation. In addition, a Y view was obtained. FINDINGS: There are no fractures or dislocations. The humeral head is seated within a well-formed glenoid. There is advanced degenerative change again noted to the right glenohumeral joint. The AC joint is intact. XR/XR shoulder RT min 2V IMPRESSION: Degenerative change to the right glenohumeral joint without evidence of acute injury.
--- NOTE | ~2020-11-03 | XR_ITS ---
EXAMINATION: CHEST 1 VIEW CLINICAL INFORMATION: Chest pain. COMPARISON: 10/22/2010. TECHNIQUE: An AP view of the chest is provided. FINDINGS: The cardiac silhouette is not enlarged. The mediastinal and hilar contours are unremarkable. There are neither pleural effusions nor pneumothoraces. There are no consolidations. The osseous structures are stable. XR/XR chest 1V IMPRESSION: No evidence for acute disease.
--- NOTE | ~2020-11-03 | XR_ITS ---
EXAMINATIONS: PELVIS 1 VIEW AND LEFT HIP 2 VIEWS CLINICAL INFORMATION: Pain after fall. COMPARISON: 10/10/2020. TECHNIQUE: A supine view of the pelvis is provided. AP neutral and frog-leg lateral views of the left hip are provided. FINDINGS: Degenerative change about the left hip joint is stable. No acute fractures demonstrable. XR/XR hip LT min 2V IMPRESSION: Stable chronic changes to the left hip without evidence of acute injury.
--- NOTE | ~2020-11-03 | CT_ITS ---
EXAMINATIONS: CT HEAD WITHOUT CONTRAST AND CT CERVICAL SPINE WITHOUT CONTRAST CLINICAL INFORMATION: Fall. COMPARISON: 10/22/2020. TECHNIQUE: Contiguous helical images of the brain were obtained without IV contrast. Contiguous helical images of the cervical spine were obtained without IV contrast. Multiplanar reconstructions were performed. DLP: 1409 mGy-cm. FINDINGS: There are no pathologic extra-axial fluid collections. The lateral, third, fourth ventricles are nondilated and concordant with the appearance of the sulci. There is no evidence for acute intraparenchymal hemorrhage or infarct. There is neither mass nor mass effect. There is no shift of midline structures. The paranasal sinuses are clear. There is bilateral mastoid opacification. There are no osseous lesions. The cervical vertebra are in normal alignment. There is multilevel disc height loss with anterior osteophyte formation within the mid and lower cervical spine. Vertebral body heights are well-preserved. There are no fractures. There is no prevertebral soft tissue swelling. There is no cervical lymphadenopathy. The visualized lung apices are clear. CT/CT cervical spine wo con IMPRESSION: No evidence for acute intracranial injury. No evidence for acute injury to the cervical spine. Moderate degenerative change within the cervical spine. Automated exposure control (Care Dose) Adjustment of the mA and/or kv according to patient size (this includes techniques or standardized protocols for targeted exams where dose is matched to indication / reason for exam; i.e. extremities or head).
[2020-11-03 23:32] VITALS: BP 149/79; BP 150/90; PULSE 88; PULSE 92; RESP 21; TEMP 36.7; O2SAT 95; BMI 27.1
[2020-11-03 23:44] VITALS: BP 149/79; PULSE 89; RESP 18; TEMP 36.7; O2SAT 96
[2020-11-04] VITALS (10 sets, daily range): BP systolic 138–161; BP diastolic 66–82; PULSE 88–100; RESP 18–24; TEMP 36.8–37.7; O2SAT 92–100
--- NOTE | 2020-11-04 00:09 | ED.GENADULT ---
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 Related Data Home Medications Medication Instructions Recorded Confirmed Flovent HFA 1 puff INHALATION BID 08/18/20 10/22/20 albuterol sulfate [Ventolin HFA] 2 puff INHALATION Q4-6H PRN 08/18/20 10/22/20 aspirin 81 mg PO BEDTIME 08/18/20 10/22/20 citalopram 40 mg PO QAM 08/18/20 10/22/20 ipratropium-albuterol 1 amp INHALATION QID PRN 08/18/20 10/22/20 montelukast 10 mg PO QPM 08/18/20 10/22/20 acetaminophen 650 mg PO Q12H PRN 10/10/20 10/22/20 baclofen 20 mg PO DAILY PRN 10/10/20 10/22/20 clonazepam 1 mg PO BID 10/10/20 10/22/20 metoprolol succinate 25 mg PO DAILY 10/10/20 10/22/20 pravastatin 20 mg PO BEDTIME 10/10/20 10/22/20 quetiapine 50 mg PO BID 10/10/20 10/22/20 sennosides [senna] 8.6 mg PO BID 10/10/20 10/22/20 Previous Rx's Medication Instructions Recorded folic acid 1 mg PO DAILY #30 tab 08/28/20 insulin lispro [Humalog U-100 1 sliding scale dose SUBCUT 08/28/20 Insulin] QIDACHS #10 ml thiamine HCl (vitamin B1) 100 mg PO DAILY #30 tab 08/28/20 cefdinir 300 mg PO BID 7 Days #14 cap 10/21/20 furosemide [Lasix] 20 mg PO DAILY #30 tab 10/21/20 cefuroxime axetil 250 mg PO BID 6 Days #12 tab 10/25/20 Allergies Allergy/AdvReac Type Severity Reaction Status Date / Time advair Allergy Unknown Unknown Uncoded 10/08/20 20:46 paxil Allergy Unknown Unknown Uncoded 10/08/20 20:46 From PAXIL AdvReac Intermediate NAUSEA & Uncoded 10/08/20 20:46 VOMITING Review of Systems Review of Systems: All other systems are reviewed and are negative Constitutional: Reports as per HPI and Reports no additional constitutional complaints Eyes: Reports as per HPI and Reports no additional eye complaints Reports system reviewed and no additional complaints, except as documented Cardiovascular: Reports as per HPI and Reports no additional cardiovascular complaints Respiratory: Reports as per HPI and Reports no additional respiratory complaints Gastrointestinal: Reports as per HPI and Reports no additional gastrointestinal complaints Genitourinary: Reports no additional female genitourinary complaints Musculoskeletal: Reports no additional musculoskeletal complaints Skin/Breast: Reports system reviewed and no additional complaints, except as docu Psychiatric: Reports no additional psychiatric complaints Endocrine: Reports no additional endocrine complaints Hematologic/Lymphatic: Reports no additional hematologic/lymphatic complaints Allergic/Immunologic: Reports no additional allergic/immunologic complaints Reports system reviewed and no additional complaints, except as documented and Reports Abnormal speech present [facility] Past Medical History Medical History Bipolar 1 disorder COPD (chronic obstructive pulmonary disease) Coronary artery disease Diabetes Hypertension Osteoarthritis Sleep apnea Surgical History Hx of appendectomy Social History Social History Household Members: Significant Other Housing: Apartment Alcohol intake: current Alcohol intake frequency: does not drink Smoking Status: Never smoker Cigarettes Per Day: 3 Use of substances other than those prescribed or required for medical reasons: No Substance Use Type: Marijuana Advance Directives: No Advance Directives Information Provided: No service: No Current occupational status: disabled and other Physical Exam Vital Signs: Vital Signs: Last Vital Signs Temp 98.1 F 11/03/20 23:44 Pulse 92 11/04/20 03:07 Resp 18 11/03/20 23:44 BP 157/78 H 11/04/20 03:07 Pulse Ox 96 11/03/20 23:44 Body Mass Index 27.1 Vital signs have been reviewed as normal and appeared to be correct. Blood pressure in the high range. Heart rate normal. Respiration rate normal. Temperature normal. Oxygen saturation normal. Appearance: Alert. Oriented X3. No acute distress. Head: Normal external exam. Normocephalic. Atraumatic. No Jones signs noted. No raccoon eyes noted Eyes: PERRLA. EOMI. Conjunctiva and sclera normal. Eyelids normal. ENT: TM's Normal. Pharynx normal. Uvula midline. Moist mucous membranes. No trismus noted. No drooling noted. No muffled voice noted. Neck: Normal inspection. Neck supple. FROM. No adenopathy. Thyroid Normal. No meningeal signs. No neck mass noted, mild C-spine tenderness midline no step-off, no deformity.. CVS: Normal heart rate and rhythm. Heart sound normal. No murmurs noted. Pulses normal throughout. Respiratory: No respiratory distress. Painless inspiration. Breath sounds normal. No wheezes/rales/rhonchi noted. Chest nontender. No accessory muscle usage noted or decreased air movement noted. Abdomen: Soft and nontender. Bowel sounds normal in all 4 quadrants. No distention noted. No organomegaly noted. No visible injury noted. Back: No CVA tenderness. Full range of motion noted. Skin: Skin warm and dry. Normal skin color. Normal skin turgor. No rashes/lesions/lacerations noted. Extremities: Right shoulder exam: Tender to palpation, no deformity, limited full range of motion due to tenderness. Left hip tenderness, no shortness or rotation, limited full range of motion due to tenderness. Neuro: Oriented X 3. No motor deficit. No sensory deficit. GCS 15. Course Course Course Narrative: Assessment and plan. 65-year-old female came in after sustaining mechanical fall x-ray are all negative for acute fractures. Hyponatremia, no evidence of hypovolemia or dehydration. Patient complained of chest pain with unremarkable EKG with -2 troponin. Will admit the patient for gentle hydration and gentle sodium correction. Medical Decision Making Lab Data Lab results reviewed: Yes I reviewed the patient's lab results. Result diagrams: 11/04/20 00:26 11/04/20 00:26 Labs: Lab Results 11/04/20 11/04/20 11/04/20 Range/Units 00:26 00:26 00:26 WBC 6.8 (4.8-10.8) X10*3/uL RBC 3.14 L (4.20-5.50) X10*6/uL Hgb 9.9 L (12.0-16.0) g/dl Hct 28.8 L (37-47) % MCV 91.7 (80-98) fL MCH 31.5 (27.0-33.0) pg MCHC 34.4 (31.0-35.0) g/dl RDW 12.7 (11.0-16.0) % Plt Count 353 (160-400) X10*3/uL MPV 8.8 L (9.4-12.3) fL Immature Gran % (Auto) 0.9 H (0.0-0.4) % Neut % (Auto) 70.8 (45-73) % Lymph % (Auto) 17.0 L (20-40) % [place] % (Auto) 10.5 (2-11) % Eos % (Auto) 0.7 (0-4) % Baso % (Auto) 0.1 (0-2) % Lymph # (Auto) 1.2 (1.2-4.9) X10*3/uL [place] # (Auto) 0.7 (0.1-1.2) X10*3/uL Eos # (Auto) 0.1 (0.0-0.4) X10*3/uL Baso # (Auto) 0.0 (0.0-0.2) X10*3/uL Abs Immat Gran (auto) 0.06 H (0.00-0.03) X10*3/uL Absolute Neuts (auto) 4.8 (2.0-8.3) X10*3/uL Absolute Nucleated RBC 0.000 (0.0-0.012) X10*3/uL Nucleated RBC % (auto) 0.0 (0.0-0.2) /100WBC Sodium 122 L (135-145) mmol/L Potassium 4.6 (3.3-5.1) mmol/L Chloride 87 L (96-108) mmol/L Carbon Dioxide 23 (22-29) mmol/L Anion Gap 17 (12-20) BUN 20 H (9-16) mg/dL Creatinine 1.16 (0.5-1.4) mg/dL Estim Creat Clear Calc 43.9 Estimated GFR 47 Random Glucose 114 (60-115) mg/dL Calcium 8.1 L D (8.4-10.2) mg/dL Magnesium 2.4 (1.6-2.6) mg/dL Total Bilirubin 0.2 (0.0-1.0) mg/dL Direct Bilirubin < 0.2 (0.0-0.5) mg/dL AST 14 D (5-31) U/L ALT 8 (0-31) U/L Alkaline Phosphatase 88 (39-117) U/L Troponin I High Sens 5.7 D (<3.5-17.0) ng/L B-Natriuretic Peptide (<100) pg/mL Total Protein 6.9 (6.5-8.0) g/dL Albumin 3.5 (3.5-5.0) g/dL Lipase 77 (8-78) U/L Urine Color Urine Appearance Urine pH (5.0-8.0) Ur Specific [place] (1.005-1.025) Urine Protein (NEG-TRACE) MG/DL Urine Glucose (UA) (NEG) MG/DL Urine Ketones (NEG) MG/DL Urine Blood (NEG) Urine Nitrite (NEG) Ur Leukocyte Esterase (NEG) Urine RBC (0) /HPF Urine WBC (0-4) /HPF Ur Squamous Epith Cells /LPF Urine Bacteria /LPF Ethyl Alcohol mg/dL 11/04/20 11/04/20 11/04/20 Range/Units 00:26 00:26 00:35 WBC (4.8-10.8) X10*3/uL RBC (4.20-5.50) X10*6/uL Hgb (12.0-16.0) g/dl Hct (37-47) % MCV (80-98) fL MCH (27.0-33.0) pg MCHC (31.0-35.0) g/dl RDW (11.0-16.0) % Plt Count (160-400) X10*3/uL MPV (9.4-12.3) fL Immature Gran % (Auto) (0.0-0.4) % Neut % (Auto) (45-73) % Lymph % (Auto) (20-40) % [place] % (Auto) (2-11) % Eos % (Auto) (0-4) % Baso % (Auto) (0-2) % Lymph # (Auto) (1.2-4.9) X10*3/uL [place] # (Auto) (0.1-1.2) X10*3/uL Eos # (Auto) (0.0-0.4) X10*3/uL Baso # (Auto) (0.0-0.2) X10*3/uL Abs Immat Gran (auto) (0.00-0.03) X10*3/uL Absolute Neuts (auto) (2.0-8.3) X10*3/uL Absolute Nucleated RBC (0.0-0.012) X10*3/uL Nucleated RBC % (auto) (0.0-0.2) /100WBC Sodium (135-145) mmol/L Potassium (3.3-5.1) mmol/L Chloride (96-108) mmol/L Carbon Dioxide (22-29) mmol/L Anion Gap (12-20) BUN (9-16) mg/dL Creatinine (0.5-1.4) mg/dL Estim Creat Clear Calc Estimated GFR Random Glucose (60-115) mg/dL Calcium (8.4-10.2) mg/dL Magnesium (1.6-2.6) mg/dL Total Bilirubin (0.0-1.0) mg/dL Direct Bilirubin (0.0-0.5) mg/dL AST (5-31) U/L ALT (0-31) U/L Alkaline Phosphatase (39-117) U/L Troponin I High Sens (<3.5-17.0) ng/L B-Natriuretic Peptide 179 H (<100) pg/mL Total Protein (6.5-8.0) g/dL Albumin (3.5-5.0) g/dL Lipase (8-78) U/L Urine Color YELLOW Urine Appearance CLEAR Urine pH 6.0 (5.0-8.0) Ur Specific [place] 1.010 (1.005-1.025) Urine Protein NEG (NEG-TRACE) MG/DL Urine Glucose (UA) NEG (NEG) MG/DL Urine Ketones NEG (NEG) MG/DL Urine Blood 2+ H (NEG) Urine Nitrite NEG (NEG) Ur Leukocyte Esterase NEG (NEG) Urine RBC 10-14 H (0) /HPF Urine WBC 1-4 (0-4) /HPF Ur Squamous Epith Cells 1+ /LPF Urine Bacteria 1+ /LPF Ethyl Alcohol 186 mg/dL Imaging Data Right shoulder x-ray: Radiologist's impression: Degenerative change to right glenohumeral joint without evidence of acute injury. Left hip x-ray: Radiologist's impression: Stable chronic change to the left hip without evidence of acute injury. CT scan - head: Radiologist's impression: No evidence for acute intracranial injury. Cervical spine CT: Radiologist's impression: No evidence for acute injury to the cervical spine. Moderate degenerative change within the cervical spine. Chest x-ray: Radiologist's impression: No evidence for acute disease. ECG Data Interpretation: Normal sinus rhythm at 86 beats per minutes, left axis deviation, normal interval, nonspecific ST flattening. Discharge Plan Discharge Clinical Impression: Alcohol use disorder, Hyponatremia Patient Disposition: Admitted As Inpatient Prescriptions: No Action ipratropium-albuterol 0.5 mg-3 mg(2.5 mg base)/3 mL solution for nebulization 1 amp inhalation QID PRN (Reason: Shortness Of Breath Or Wheezing) RF: 0 citalopram 40 mg tablet 40 mg PO QAM RF: 0 aspirin 81 mg tablet,delayed release (DR/EC) 81 mg PO BEDTIME RF: 0 montelukast 10 mg tablet 10 mg PO QPM RF: 0 Flovent HFA 220 mcg/actuation HFA aerosol inhaler 1 puff inhalation BID RF: 0 albuterol sulfate [Ventolin HFA] 90 mcg/actuation HFA aerosol inhaler 2 puff inhalation Q4-6H PRN (Reason: Shortness Of Breath Or Wheezing) RF: 0 thiamine HCl (vitamin B1) 100 mg Tablet 100 mg PO DAILY Qty: 30 RF: 0 folic acid 1 mg Tablet 1 mg PO DAILY Qty: 30 RF: 0 insulin lispro [Humalog U-100 Insulin] 100 unit/mL Solution 1 sliding scale dose subcut QIDACHS Qty: 10 RF: 0 sennosides [senna] 8.6 mg Tablet 8.6 mg PO BID RF: 0 clonazepam 1 mg Tablet 1 mg PO BID RF: 0 acetaminophen 650 mg Tablet Extended Release 650 mg PO Q12H PRN (Reason: Pain) RF: 0 baclofen 20 mg Tablet 20 mg PO DAILY PRN (Reason: Pain) RF: 0 pravastatin 20 mg Tablet 20 mg PO BEDTIME RF: 0 metoprolol succinate 25 mg Tablet Extended Release 24 Hr 25 mg PO DAILY RF: 0 quetiapine 50 mg Tablet 50 mg PO BID RF: 0 furosemide [Lasix] 20 mg tablet 20 mg PO DAILY Qty: 30 RF: 0 cefdinir 300 mg capsule 300 mg PO BID 7 Days Qty: 14 RF: 0 cefuroxime axetil 250 mg tablet 250 mg PO BID 6 Days Qty: 12 RF: 0
[2020-11-04 00:33] LABS: Basophils Percent Auto 0.1 % (0-2); Eosinophils Absolute Auto 0.1 X10*3/uL (0.0-0.4); Eosinophils Percent Auto 0.7 % (0-4); Hematocrit 28.8 % (37-47); Hemoglobin 9.9 g/dl (12.0-16.0); Imm Gran Abs Auto 0.06 X10*3/uL (0.00-0.03); Imm Gran Pct Auto 0.9 % (0.0-0.4); Lymphocytes Absolute Auto 1.2 X10*3/uL (1.2-4.9); MANUAL DIFF FLAG NO; Mean Corpuscular HGB Conc 34.4 g/dl (31.0-35.0); Mean Corpuscular Hemoglobin 31.5 pg (27.0-33.0); Mean Corpuscular Volume 91.7 fL (80-98); Mean Platelet Volume 8.8 fL (9.4-12.3); Monocytes Absolute Auto 0.7 X10*3/uL (0.1-1.2); Monocytes Percent Auto 10.5 % (2-11); Neutrophils Absolute Auto 4.8 X10*3/uL (2.0-8.3); Neutrophils Percent Auto 70.8 % (45-73); Platelet Count 353 X10*3/uL (160-400); Red Blood Count 3.14 X10*6/uL (4.20-5.50); Red Cell Distribution Width 12.7 % (11.0-16.0); White Blood Count 6.8 X10*3/uL (4.8-10.8)
--- NOTE | 2020-11-04 00:43 | PC.NURSE ---
pt experiencing urinary retention, straight cath placed and removed. aprox 900ml drained.
[2020-11-04 00:52] LABS: Glucose Urine UA NEG (NEG); Leukocyte Esterase Urine NEG (NEG); Nitrite Urine NEG (NEG); Urine Blood 2+ (NEG); Urine Ketones NEG (NEG); Urine Protein NEG (NEG-TRACE)
[2020-11-04 00:53] LABS: Appearance Urine CLEAR; Color Urine YELLOW
[2020-11-04 00:59] LABS: B Type Natriuretic Peptide 179 pg/mL (<100); Troponin-I High Sensitivity 5.7 ng/L (<3.5-17.0)
[2020-11-04 01:06] LABS: Bacteria Urine 1+ /LPF; Squamous Epithelial Cell Urine 1+ /LPF
[2020-11-04 01:08] LABS: Ethanol 186 mg/dL
[2020-11-04 01:25] LABS: Alanine Aminotransferase 8 U/L (0-31); Albumin Level 3.5 g/dL (3.5-5.0); Alkaline Phosphatase 88 U/L (39-117); Anion Gap 17 (12-20); Aspartate Amino Transferase 14 U/L (5-31); Bilirubin Direct < 0.2 mg/dL (0.0-0.5); Bilirubin Total 0.2 mg/dL (0.0-1.0); Blood Urea Nitrogen 20 mg/dL (9-16); Calcium 8.1 mg/dL (8.4-10.2); Carbon Dioxide 23 mmol/L (22-29); Chloride 87 mmol/L (96-108); Creatinine Clr Calc Pharmacy 43.9; Estimated Glomerular Filt Rate 47; Glucose Random 114 mg/dL (60-115); Lipase 77 U/L (8-78); Potassium 4.6 mmol/L (3.3-5.1); Sodium 122 mmol/L (135-145); Total Protein 6.9 g/dL (6.5-8.0)
[2020-11-04 03:16] LABS: Magnesium 2.4 mg/dL (1.6-2.6)
[2020-11-04] MEDS: 0.9 % Sodium Chloride 1,000 ML 999 ML IVCONT (03:19)
[2020-11-04 03:21] LABS: COVID-19 Test Negative (Negative)
--- NOTE | 2020-11-04 03:29 | PC.NURSE ---
Pt stretcher brought to bathroom door. Pt ambulates with 2 person assist to toilet, urinated, returned to stretcher with 2 person assist. Pt returned to room without incidence. Pt now resting on stretcher in NAD, breathing with ease on RA. Plan for admission.
[2020-11-04 03:32] LABS: Troponin-I High Sensitivity 3.9 ng/L (<3.5-17.0)
--- NOTE | 2020-11-04 03:46 | P.HPHOSP_ITS ---
History of Present Illness Date of Service: 11/04/20 Chief Complaint: Fall 65-year-old female with a past medical history of hypertension, hyperlipidemia, diabetes, COPD, question CHF, anxiety, depression presented to the hospital with a chief complaint of fall. Patient reported that she was lying in her bed and fell off the bed and hit her head and subsequently came to the ER for further help. Patient also complained that she fell on her right side. Patient mentioned that he had an episode of chest pain, nonradiating. Currently resolved. Mention that she has been drinking alcohol. Denies any numbness tingling, fevers chills, chest pain palpitations, GI or symptoms. Review of all other systems is negative except mentioned above ER course: Per ER team patient's exam was nonfocal, at CT head, CT C-spine, shoulder x-ray, hip x-ray showed no acute findings CBC at her baseline numbers. But on chemistry noted to have hyponatremia to 122 and chloride of 87. Troponin negative. EKG nonischemic. Admitted to the hospital for further management. COVID-19 negative. [facility] Medical History Bipolar 1 disorder COPD (chronic obstructive pulmonary disease) Coronary artery disease Diabetes Hypertension Osteoarthritis Sleep apnea Surgical History Hx of appendectomy Social History Household Members: Significant Other Housing: Apartment Alcohol intake: current Alcohol intake frequency: does not drink Smoking Status: Never smoker Cigarettes Per Day: 3 Use of substances other than those prescribed or required for medical reasons: No Substance Use Type: Marijuana Advance Directives: No Advance Directives Information Provided: No service: No Current occupational status: disabled and other Meds Allergies Allergy/AdvReac Type Severity Reaction Status Date / Time advair Allergy Unknown Unknown Uncoded 10/08/20 20:46 paxil Allergy Unknown Unknown Uncoded 10/08/20 20:46 From PAXIL AdvReac Intermediate NAUSEA & Uncoded 10/08/20 20:46 VOMITING Home Medications Medication Instructions Recorded Confirmed Type Flovent HFA 1 puff INHALATION BID 08/18/20 10/22/20 History albuterol sulfate [Ventolin HFA] 2 puff INHALATION Q4-6H PRN 08/18/20 10/22/20 History aspirin 81 mg PO BEDTIME 08/18/20 10/22/20 History citalopram 40 mg PO QAM 08/18/20 10/22/20 History ipratropium-albuterol 1 amp INHALATION QID PRN 08/18/20 10/22/20 History montelukast 10 mg PO QPM 08/18/20 10/22/20 History acetaminophen 650 mg PO Q12H PRN 10/10/20 10/22/20 History baclofen 20 mg PO DAILY PRN 10/10/20 10/22/20 History clonazepam 1 mg PO BID 10/10/20 10/22/20 History metoprolol succinate 25 mg PO DAILY 10/10/20 10/22/20 History pravastatin 20 mg PO BEDTIME 10/10/20 10/22/20 History quetiapine 50 mg PO BID 10/10/20 10/22/20 History sennosides [senna] 8.6 mg PO BID 10/10/20 10/22/20 History metformin 1 tab PO DAILY 11/04/20 11/04/20 History Physical Exam Vital Signs and Narrative: Vital Signs: Last Vital Signs Temp 98.1 F 11/03/20 23:44 Pulse 94 11/04/20 03:20 Resp 20 11/04/20 03:20 BP 154/73 H 11/04/20 03:20 Pulse Ox 95 11/04/20 03:20 Body Mass Index 27.1 Gen: Appears be in no acute distress HEENT: NCAT, Moist mucosa. Pulmonary: Vesicular breath sounds, fair air entry CVS: Normal S1-S2 Abdomen: BS+, Soft, Nontender Extremities: Warm well perfused Neuro: Alert and awake. Grossly nonfocal Results Labs CBC and Chem 7: 11/04/20 00:26 11/04/20 00:26 Labs: Laboratory Results - last 24 hr 11/04/20 11/04/20 11/04/20 00:26 00:26 00:26 MCV 91.7 MCH 31.5 MCHC 34.4 RDW 12.7 Plt Count 353 MPV 8.8 L Immature Gran % (Auto) 0.9 H Neut % (Auto) 70.8 Lymph % (Auto) 17.0 L [place] % (Auto) 10.5 Eos % (Auto) 0.7 Baso % (Auto) 0.1 Lymph # (Auto) 1.2 [place] # (Auto) 0.7 Eos # (Auto) 0.1 Baso # (Auto) 0.0 Abs Immat Gran (auto) 0.06 H Absolute Neuts (auto) 4.8 Absolute Nucleated RBC 0.000 Nucleated RBC % (auto) 0.0 Anion Gap 17 Estim Creat Clear Calc 43.9 Estimated GFR 47 Random Glucose 114 Calcium 8.1 L D Magnesium 2.4 Total Bilirubin 0.2 Direct Bilirubin < 0.2 AST 14 D ALT 8 Alkaline Phosphatase 88 Troponin I High Sens 5.7 D B-Natriuretic Peptide Total Protein 6.9 Albumin 3.5 Lipase 77 Urine Color Urine Appearance Urine pH Ur Specific [place] Urine Protein Urine Glucose (UA) Urine Ketones Urine Blood Urine Nitrite Ur Leukocyte Esterase Urine RBC Urine WBC Ur Squamous Epith Cells Urine Bacteria Ethyl Alcohol COVID-19 (ZAKIA) COVID-Accumulate 11/04/20 11/04/20 11/04/20 00:26 00:26 00:35 MCV MCH MCHC RDW Plt Count MPV Immature Gran % (Auto) Neut % (Auto) Lymph % (Auto) [place] % (Auto) Eos % (Auto) Baso % (Auto) Lymph # (Auto) [place] # (Auto) Eos # (Auto) Baso # (Auto) Abs Immat Gran (auto) Absolute Neuts (auto) Absolute Nucleated RBC Nucleated RBC % (auto) Anion Gap Estim Creat Clear Calc Estimated GFR Random Glucose Calcium Magnesium Total Bilirubin Direct Bilirubin AST ALT Alkaline Phosphatase Troponin I High Sens B-Natriuretic Peptide 179 H Total Protein Albumin Lipase Urine Color YELLOW Urine Appearance CLEAR Urine pH 6.0 Ur Specific [place] 1.010 Urine Protein NEG Urine Glucose (UA) NEG Urine Ketones NEG Urine Blood 2+ H Urine Nitrite NEG Ur Leukocyte Esterase NEG Urine RBC 10-14 H Urine WBC 1-4 Ur Squamous Epith Cells 1+ Urine Bacteria 1+ Ethyl Alcohol 186 COVID-19 (ZAKIA) COVID-Accumulate 11/04/20 11/04/20 02:58 03:01 MCV MCH MCHC RDW Plt Count MPV Immature Gran % (Auto) Neut % (Auto) Lymph % (Auto) [place] % (Auto) Eos % (Auto) Baso % (Auto) Lymph # (Auto) [place] # (Auto) Eos # (Auto) Baso # (Auto) Abs Immat Gran (auto) Absolute Neuts (auto) Absolute Nucleated RBC Nucleated RBC % (auto) Anion Gap Estim Creat Clear Calc Estimated GFR Random Glucose Calcium Magnesium Total Bilirubin Direct Bilirubin AST ALT Alkaline Phosphatase Troponin I High Sens 3.9 B-Natriuretic Peptide Total Protein Albumin Lipase Urine Color Urine Appearance Urine pH Ur Specific [place] Urine Protein Urine Glucose (UA) Urine Ketones Urine Blood Urine Nitrite Ur Leukocyte Esterase Urine RBC Urine WBC Ur Squamous Epith Cells Urine Bacteria Ethyl Alcohol COVID-19 (ZAKIA) Negative COVID-19 Clin Com See Note Imaging Radiologist's Impressions: Impressions Chest X-Ray 11/03/20 23:27 IMPRESSION: No evidence for acute disease. Hip X-Ray 11/03/20 23:51 IMPRESSION: Stable chronic changes to the left hip without evidence of acute injury. Shoulder X-Ray 11/03/20 23:51 IMPRESSION: Degenerative change to the right glenohumeral joint without evidence of acute injury. Cervical Spine CT 11/04/20 00:00 IMPRESSION: No evidence for acute intracranial injury. No evidence for acute injury to the cervical spine. Moderate degenerative change within the cervical spine. Automated exposure control (Care Dose) Adjustment of the mA and/or kv according to patient size (this includes techniques or standardized protocols for targeted exams where dose is matched to indication / reason for exam; i.e. extremities or head). Head CT 11/04/20 00:00 IMPRESSION: No evidence for acute intracranial injury. No evidence for acute injury to the cervical spine. Moderate degenerative change within the cervical spine. Automated exposure control (Care Dose) Adjustment of the mA and/or kv according to patient size (this includes techniques or standardized protocols for targeted exams where dose is matched to indication / reason for exam; i.e. extremities or head). Assessment and Plan (1) Hyponatremia: Status: Acute 65-year-old female with a past medical history of hypertension, hyperlipidemia, diabetes, COPD, CHF, chronic kidney disease, anxiety, depressio n, alcohol abuse presented to the hospital with a chief complaint of fall. Fall: Mechanical in nature. Denies any loss of consciousness. But had head strike and fell on the right side. Imaging negative for acute fracture , no acute intracranial findings. Fall precautions PT/OT Hyponatremia: Patient currently asymptomatic. Seizure precautions. Appears to be dehydration/social good state. Home patient is started on normal saline 50 cc/hour. Will repeat the sodium levels in the morning and adjust the IV fluids accordingly. Nephrology consulted for further recommendations. Patient was orthostatic negative in the ER. Less concern for any fluid overload. Lower Abd pain/Discomfort: No spinal tenderness noticed. Will obtain CT abd/pelvis. Diabetes: Will give the patient on insulin sliding scale. To adjust insulins as per the fingerstick glucose a.c. HS. Hypertension/hyperlipidemia: Continue home medications. For all other chronic conditions, home medications will be continued pending med reconciliation. DVT prophylaxis: Lovenox Code status: Full code
[2020-11-04] MEDS: 0.9 % Sodium Chloride 1,000 ML 50 ML IVCONT (03:57)
--- NOTE | 2020-11-04 04:03 | PC.NURSE ---
NS @50ml/hr duplicate order. Maintenance fluids at 50ml/hr started, duplicated order marked not given in MAR
--- NOTE | 2020-11-04 05:20 | PC.NURSE ---
PT HAS BEEN INCONTINENT OF URINE SEVERAL TIMES, LINEN AND GOWN CHANGED EACH TIME. PUREWICK PLACED TO HELP ABSORB URINE. PT WAS ABMULATORY TO BATHROOM EARLIER, STRETCHER BROUGHT TO DOORWAY. PT NEEDED ASSIST OF 2, UNSTEADY GAIT.
[2020-11-04 09:27] LABS: Glucose, Whole Blood 109 mg/dL (60-115)
[2020-11-04] MEDS: Enoxaparin Sodium 40 MG/0.4 ML SYRINGE SUBCUT (09:28)
[2020-11-04] MEDS: LORazepam 1 MG TABLET PO (09:35)
--- NOTE | 2020-11-04 12:02 | CONS_ITS ---
DATE OF SERVICE: REASON FOR CONSULTATION: I was called to see this patient to assist in the management of hyponatremia. HISTORY OF PRESENT ILLNESS: To summarize, Belia is known to us from the previous admissions. She is a 65-year-old woman with a history of hypertension, diabetes mellitus, obesity, and congestive heart failure, who had acute kidney injury few weeks ago. The renal function returned to baseline with a creatinine of 1.3 mg/dL. However, she comes into the hospital this time with a history of fall from the bed. Apparently, she has been drinking alcohol, and the alcohol level was 186 at the time of admission. The initial serum sodium was 122 with a creatinine of 1.16. She was on citalopram at time of admission along with Lasix. It is unclear what type of alcohol she has been drinking. Since admission, the diuretics and citalopram have been discontinued. She received some IV fluids and the repeat sodium was not available. She had a CT scan of the head, which was unremarkable. This consultation had been requested for management of the hyponatremia. PAST MEDICAL HISTORY: Ongoing medical problems included history of COPD, coronary artery disease, CHF, hypertension, diabetes mellitus, history of acute kidney injury, sleep apnea, and history of bipolar disorder. PAST SURGICAL HISTORY: Include appendicectomy. SOCIAL HISTORY: History of marijuana use and alcohol use. ALLERGIES: SHE IS ALLERGIC TO PAXIL AND ADVAIR. CURRENT MEDICATIONS: At time of admission included Flovent, albuterol, aspirin, citalopram 40 mg, ipratropium, montelukast, baclofen, metoprolol, pravastatin, quetiapine, senna, and metformin. REVIEW OF SYSTEMS: Positive for fall. No headache, nausea, or vomiting. No abdominal pain, diarrhea, or constipation. No urinary symptoms. No polyuria or polydipsia. PHYSICAL EXAMINATION: GENERAL: Belia is a middle-aged woman. She is obese, sleepy, arousable, not in any distress. NECK: Supple. No JVD. Mucosa is moist. LUNGS: Bilateral rhonchi. HEART: S1, S2 heard. No gallop. ABDOMEN: Obese. Soft, nontender. EXTREMITIES: No significant edema. No rash. No clubbing. VITAL SIGNS: Blood pressure was 152/82, pulse 97 per minute, O2 saturation 92%. LABS: At the time of admission, urinalysis showed specific gravity 1.010, 2+ blood, no protein, 10-14 rbc's. Urine electrolytes were not available. Serum sodium 122, potassium 4.6, BUN 20, creatinine 1.16, calcium 8.1 at around 12 midnight as of November 04. Alcohol level was 186. Hemoglobin 9.9, WBC 3.14, platelets 353,000. DIAGNOSTIC DATA: CT head, no acute pathology documented. CT of the abdomen and pelvis was done, results are pending. IMPRESSION: 65-year-old woman with hypertension, obesity, diabetes mellitus, bipolar disorder, comes in with a fall and history of alcohol use, who was found to have a serum sodium of 122 millimoles. There is a wide differential diagnosis for hyponatremia at this time. She has been drinking alcohol and if she has been drinking beer, then beer potomania is a possibility. However, she was also taking Celexa which could have been the precipitating factor in decreasing free water clearance. RECOMMENDATIONS: My recommendation is to obtain a spot urine for sodium, creatinine, and protein. Urine osmolality and check serum osmolality, TSH, and cortisol. The goal is to cut the serum sodium at a rate of 0.5 to 1 millimole per L per hour and not to exceed more than 10 millimoles in a 24-hour period. The last serum sodium was drawn more than 10 hours ago, and she needs another set of electrolytes stat and further recommendation will be based on the serum levels. I have discussed with the team. We will be happy to follow her closely along with the team. MD SCAR Dias/MODL / [id number]
--- NOTE | 2020-11-04 13:29 | MHC.CM.PN ---
IMM 11/04/20, EMR reviewed, pt admitted w/hyponatremia, gentle rehydration and frequent falls, CM cantacted pt's partner Juanjo who is her HCP to discuss PT and OT's recommendation for STR, HCP initially reporting he would like her home due to pt wanting to be at home and not a facility, however when discussing frequent ED visits and frequent falls and STR being a short term plan with goal to go home after HCP seemed open and is ok with CM making referrals. Pt's HCP made aware of pt's BAL of 186 and reports people come to the house and she starts drinking beer. Pt's partner inconsistent with CM and CM is unsure of reliability of partner/HCP. Discharge Plan: STR with BLS transport.
--- NOTE | 2020-11-04 14:52 | PC.NURSE ---
PT CHANGED AND REPOSITIONED AFTER BEING INC OF URINE
[2020-11-04 15:24] LABS: Anion Gap 11 (12-20); Blood Urea Nitrogen 19 mg/dL (9-16); Calcium 8.5 mg/dL (8.4-10.2); Carbon Dioxide 27 mmol/L (22-29); Chloride 95 mmol/L (96-108); Creatinine Clr Calc Pharmacy 45.5; Estimated Glomerular Filt Rate 49; Glucose Random 156 mg/dL (60-115); Potassium 4.9 mmol/L (3.3-5.1); Sodium 128 mmol/L (135-145)
[2020-11-04 16:24] LABS: Glucose, Whole Blood 99 mg/dL (60-115)
[2020-11-04] MEDS: 0.9 % Sodium Chloride Flush 3 ML SYRINGE IVFLUSH (16:24)
--- NOTE | 2020-11-04 17:21 | P.PNIM_ITS ---
Subjective Subjective Date of Service: 11/04/20 Interval History: patient seen and examined at bedside patient was reporting pain Review of Systems All other systems are reviewed and are negative Constitutional: Reports as per HPI and Reports no additional constitutional complaints Eyes: Reports as per HPI and Reports no additional eye complaints Reports system reviewed and no additional complaints, except as documented Cardiovascular: Reports as per HPI and Reports no additional cardiovascular complaints Respiratory: Reports as per HPI and Reports no additional respiratory complaints Gastrointestinal: Reports as per HPI and Reports no additional gastrointestinal complaints Genitourinary: Reports no additional female genitourinary complaints Musculoskeletal: Reports no additional musculoskeletal complaints Skin/Breast: Reports system reviewed and no additional complaints, except as docu Psychiatric: Reports no additional psychiatric complaints Endocrine: Reports no additional endocrine complaints Hematologic/Lymphatic: Reports no additional hematologic/lymphatic complaints Allergic/Immunologic: Reports no additional allergic/immunologic complaints Reports system reviewed and no additional complaints, except as documented and Reports Abnormal speech present Physical Exam Vital Signs: Vital Signs: Last Vital Signs Temp 100 F 11/04/20 15:58 Pulse 94 11/04/20 15:58 Resp 18 11/04/20 15:58 BP 161/74 H 11/04/20 15:58 Pulse Ox 94 11/04/20 15:58 Body Mass Index 27.1 Const: General: tired appearing Resp: Auscultation: rhonchi Cardio: Jugular venous distension: no JVD Heart sounds: S1 normal heart sound present and S2 normal heart sound present GI: Auscultation: normal bowel sounds Skin: General skin exam: no rashes or lesions noted Objective Data Current Medications Generic Name Dose Route Start Last Admin Trade Name Freq PRN Reason Stop Dose Admin Albuterol/Ipratropium 3 ml 11/04/20 03:40 Albuterol/Iprat 2.5/0.5mg 3 Ml Ampul.Neb INHALE RQ6H PRN Shortness of Breath/Wheezing Enoxaparin Sodium 40 mg 11/04/20 06:00 11/04/20 09:28 Enoxaparin Sodium 40 Mg/0.4 Ml Syringe SUBCUT 40 mg Q24H YUMIKO Administration Sodium Chloride 1,000 mls @ 50 mls/hr 11/04/20 03:41 11/04/20 03:47 Ns IVCONT 11/04/20 23:40 Not Given .Q20H ONE Sodium Chloride 1,000 mls @ 50 mls/hr 11/04/20 03:45 11/04/20 03:57 Ns IVCONT 50 mls/hr .Q20H YUMIKO Administration Insulin Human Lispro 0 unit 11/04/20 07:30 11/04/20 16:23 Insulin Lispro 100 Unit/Ml 3 Ml Vial SUBCUT Not Given QIDACHS [facility] Protocol Lorazepam 1 mg 11/04/20 03:40 11/04/20 09:35 Lorazepam 1 Mg Tablet PO 11/08/20 03:39 1 mg Q4H PRN Administration Breakthrough alcohol withdrawa Pharmacy Consult 1 each 11/04/20 03:20 Consult Rx Perform Med Rec MISCELLANE ONCE PRN Consult order Sodium Chloride 3 ml 11/04/20 08:00 11/04/20 16:24 0.9 % Sodium Chloride Flush 3 Ml Syringe IVFLUSH 3 ml QSHIFT YUMIKO Administration Labs CBC & Chem 7: 11/04/20 00:26 11/04/20 14:34 Assessment and Plan (1) Hyponatremia: Status: Acute Assessment and Plan: 65-year-old female with a past medical history of hypertension, hyperlipidemia, diabetes, COPD, CHF, chronic kidney disease, anxiety, depression, alcohol abuse presented to the hospital with a chief complaint of fall. s/p Fall: Mechanical in nature. CT head shows no bleeding Fall precautions PT/OT Hyponatremia sodium 128 continue gentle IV fluid monitor sodium Lower Abd pain/Discomfort: CT abdomen done report pending continue supportive management Diabetes: continue sliding scale insulin monitor BG\ Hypertension/hyperlipidemia: Continue home medications. DVT prophylaxis: Lovenox Code status: Full code
--- NOTE | 2020-11-04 23:30 | PC.NURSE ---
ASSUMED CARE OF PT. . PT RESTING IN STRETCHER W/O COMPLAINTS. PT WAKES TO VERBAL STIMULI, REQUESTING SOMETHING TO DRINK. PT AWAITING FOR PLACEMENT. WILL CONTINUE TO MONITOR PT.
[2020-11-05 06:44] LABS: MANUAL DIFF FLAG NO
[2020-11-05 06:50] LABS: Basophils Percent Auto 0.2 % (0-2); Eosinophils Percent Auto 0.2 % (0-4); Hematocrit 30.6 % (37-47); Hemoglobin 10.6 g/dl (12.0-16.0); Imm Gran Abs Auto 0.04 X10*3/uL (0.00-0.03); Imm Gran Pct Auto 0.6 % (0.0-0.4); Lymphocytes Absolute Auto 0.8 X10*3/uL (1.2-4.9); Lymphocytes Percent Auto 11.8 % (20-40); Mean Corpuscular HGB Conc 34.6 g/dl (31.0-35.0); Mean Corpuscular Hemoglobin 31.1 pg (27.0-33.0); Mean Corpuscular Volume 89.7 fL (80-98); Mean Platelet Volume 8.6 fL (9.4-12.3); Neutrophils Absolute Auto 4.6 X10*3/uL (2.0-8.3); Neutrophils Percent Auto 71.2 % (45-73); Platelet Count 388 X10*3/uL (160-400); Red Blood Count 3.41 X10*6/uL (4.20-5.50); Red Cell Distribution Width 12.4 % (11.0-16.0); White Blood Count 6.5 X10*3/uL (4.8-10.8)
[2020-11-05 07:06] LABS: Anion Gap 15 (12-20); Blood Urea Nitrogen 18 mg/dL (9-16); Calcium 8.6 mg/dL (8.4-10.2); Carbon Dioxide 26 mmol/L (22-29); Chloride 94 mmol/L (96-108); Creatinine Clr Calc Pharmacy 45.9; Estimated Glomerular Filt Rate 49; Glucose Random 120 mg/dL (60-115); Potassium 4.3 mmol/L (3.3-5.1); Sodium 131 mmol/L (135-145)
[2020-11-05 07:07] LABS: Anion Gap 13 (12-20); Blood Urea Nitrogen 19 mg/dL (9-16); Calcium 8.7 mg/dL (8.4-10.2); Carbon Dioxide 26 mmol/L (22-29); Chloride 95 mmol/L (96-108); Creatinine Clr Calc Pharmacy 45.1; Estimated Glomerular Filt Rate 48; Glucose Random 119 mg/dL (60-115); Potassium 4.3 mmol/L (3.3-5.1); Sodium 130 mmol/L (135-145)
[2020-11-05 08:00] VITALS: BP 163/82; PULSE 80; RESP 20; TEMP 36.8; O2SAT 97
[2020-11-05] MEDS: Enoxaparin Sodium 40 MG/0.4 ML SYRINGE SUBCUT (08:09)
[2020-11-05] MEDS: 0.9 % Sodium Chloride 1,000 ML 50 ML IVCONT (08:09)
[2020-11-05] MEDS: 0.9 % Sodium Chloride Flush 3 ML SYRINGE IVFLUSH (08:11)
[2020-11-05 08:18] LABS: Glucose, Whole Blood 111 mg/dL (60-115)
[2020-11-05 08:28] VITALS: BMI 34.4
--- NOTE | 2020-11-05 09:14 | P.PNNP_ITS ---
Subjective Subjective Date of Service: 11/05/20 Interval history: patient seen and examined at bedside Doing Ok Physical Exam Vital Signs: Vital Signs: Last Vital Signs Temp 98.3 F 11/05/20 08:00 Pulse 80 11/05/20 08:00 Resp 20 11/05/20 08:00 BP 163/82 H 11/05/20 08:00 Pulse Ox 97 11/05/20 08:00 Body Mass Index 34.4 Const: General: no acute distress Neck: Neck: Yes supple Resp: Auscultation: no crackles Cardio: Heart sounds: no rubs GI: Auscultation: normal bowel sounds Neuro: Motor exam (neuro): no asterixis Objective Data Labs CBC & Chem 7: 11/05/20 06:23 11/05/20 06:23 Labs: Laboratory Results - last 24 hr 11/04/20 11/04/20 11/04/20 09:24 14:34 16:19 WBC RBC Hgb Hct MCV MCH MCHC RDW Plt Count MPV Immature Gran % (Auto) Neut % (Auto) Lymph % (Auto) [place] % (Auto) Eos % (Auto) Baso % (Auto) Lymph # (Auto) [place] # (Auto) Eos # (Auto) Baso # (Auto) Abs Immat Gran (auto) Absolute Neuts (auto) Absolute Nucleated RBC Nucleated RBC % (auto) Sodium 128 L Potassium 4.9 Chloride 95 L Carbon Dioxide 27 Anion Gap 11 L BUN 19 H Creatinine 1.12 Estim Creat Clear Calc 45.5 Estimated GFR 49 POC Glucose 109 99 Random Glucose 156 H D Calcium 8.5 11/05/20 11/05/20 11/05/20 06:23 06:23 06:23 WBC 6.5 RBC 3.41 L Hgb 10.6 L Hct 30.6 L MCV 89.7 MCH 31.1 MCHC 34.6 RDW 12.4 Plt Count 388 MPV 8.6 L Immature Gran % (Auto) 0.6 H Neut % (Auto) 71.2 Lymph % (Auto) 11.8 L [place] % (Auto) 16.0 H Eos % (Auto) 0.2 Baso % (Auto) 0.2 Lymph # (Auto) 0.8 L [place] # (Auto) 1.0 Eos # (Auto) 0.0 Baso # (Auto) 0.0 Abs Immat Gran (auto) 0.04 H Absolute Neuts (auto) 4.6 Absolute Nucleated RBC 0.000 Nucleated RBC % (auto) 0.0 Sodium 130 L 131 L Potassium 4.3 4.3 Chloride 95 L 94 L Carbon Dioxide 26 26 Anion Gap 13 15 BUN 19 H 18 H Creatinine 1.13 1.11 Estim Creat Clear Calc 45.1 45.9 Estimated GFR 48 49 POC Glucose Random Glucose 119 H 120 H Calcium 8.7 8.6 11/05/20 08:15 WBC RBC Hgb Hct MCV MCH MCHC RDW Plt Count MPV Immature Gran % (Auto) Neut % (Auto) Lymph % (Auto) [place] % (Auto) Eos % (Auto) Baso % (Auto) Lymph # (Auto) [place] # (Auto) Eos # (Auto) Baso # (Auto) Abs Immat Gran (auto) Absolute Neuts (auto) Absolute Nucleated RBC Nucleated RBC % (auto) Sodium Potassium Chloride Carbon Dioxide Anion Gap BUN Creatinine Estim Creat Clear Calc Estimated GFR POC Glucose 111 Random Glucose Calcium Assessment & Plan Assessment and plan (1) Hyponatremia: Problem details: In a setting of ALcohol use Na is gradually improving Urine studies not available /not done keep on PO water restriction Status: Acute (2) SAGAR (acute kidney injury): Problem details: Cr is better Status: Acute Time Spent With Patient Time: Total time spent is greater than 50% in coordination of care (as documented) at patient's floor/unit and/or counseling patient:
[2020-11-05] MEDS: oxyCODONE HCl Immed Release 5 MG TABLET PO ×2 (10:28→16:51)
[2020-11-05] MEDS: Flu Vacc QS2020-21(6mos up)/PF 0.5 ML SYRINGE IM (10:29)
--- NOTE | 2020-11-05 10:36 | PC.NURSE ---
IN ADMISSION ASSESSMENT PT DENIED DRINKING ALCOHOL, ETOH 186 UPON ADMISSION. PT CURRENLY ANXIOUS AND RESTLESS, SBP IN 160S, MILD HAND SHAKING. MD AWARE. WILL CONTINUE TO MONITOR. FLU SHOT GIVEN TO RIGHT DELTOID.
[2020-11-05 11:51] LABS: Glucose, Whole Blood 105 mg/dL (60-115)
[2020-11-05 12:00] VITALS: BP 175/89; PULSE 95; RESP 23; O2SAT 100
--- NOTE | 2020-11-05 13:37 | HO.PM.IMPN ---
Subjective Subjective Date of Service: 11/05/20 Interval History: patient seen and examined at bedside patient was reporting pain and right lower back Review of Systems All other systems are reviewed and are negative Constitutional: Reports as per HPI and Reports no additional constitutional complaints Eyes: Reports as per HPI and Reports no additional eye complaints Reports system reviewed and no additional complaints, except as documented Cardiovascular: Reports as per HPI and Reports no additional cardiovascular complaints Respiratory: Reports as per HPI and Reports no additional respiratory complaints Gastrointestinal: Reports as per HPI and Reports no additional gastrointestinal complaints Genitourinary: Reports no additional female genitourinary complaints Musculoskeletal: Reports no additional musculoskeletal complaints Skin/Breast: Reports system reviewed and no additional complaints, except as docu Psychiatric: Reports no additional psychiatric complaints Endocrine: Reports no additional endocrine complaints Hematologic/Lymphatic: Reports no additional hematologic/lymphatic complaints Allergic/Immunologic: Reports no additional allergic/immunologic complaints Reports system reviewed and no additional complaints, except as documented and Reports Abnormal speech present Physical Exam Vital Signs: Vital Signs: Last Vital Signs Temp 98.3 F 11/05/20 08:00 Pulse 95 11/05/20 12:00 Resp 23 H 11/05/20 12:00 BP 175/89 H 11/05/20 12:00 Pulse Ox 100 11/05/20 12:00 Body Mass Index 34.4 Const: General: tired appearing Resp: Auscultation: rhonchi Cardio: Jugular venous distension: no JVD Heart sounds: S1 normal heart sound present and S2 normal heart sound present GI: Auscultation: normal bowel sounds Skin: General skin exam: no rashes or lesions noted Objective Data Current Medications Generic Name Dose Route Start Last Admin Trade Name Freq PRN Reason Stop Dose Admin Albuterol/Ipratropium 3 ml 11/04/20 03:40 Albuterol/Iprat 2.5/0.5mg 3 Ml Ampul.Neb INHALE RQ6H PRN Shortness of Breath/Wheezing Enoxaparin Sodium 40 mg 11/04/20 06:00 11/05/20 08:09 Enoxaparin Sodium 40 Mg/0.4 Ml Syringe SUBCUT 40 mg Q24H YUMIKO Administration Sodium Chloride 1,000 mls @ 50 mls/hr 11/04/20 03:45 11/05/20 08:09 Ns IVCONT 50 mls/hr .Q20H YUMIKO Administration Insulin Human Lispro 0 unit 11/04/20 07:30 11/05/20 11:43 Insulin Lispro 100 Unit/Ml 3 Ml Vial SUBCUT Not Given QIDACHS [facility] Protocol Lorazepam 1 mg 11/04/20 03:40 11/04/20 09:35 Lorazepam 1 Mg Tablet PO 11/08/20 03:39 1 mg Q4H PRN Administration Breakthrough alcohol withdrawa Oxycodone HCl 5 mg 11/05/20 10:22 11/05/20 10:28 Oxycodone Hcl Immed Release 5 Mg Tablet PO 5 mg Q6H PRN Administration Pain, Severe (Pain Scale 7-10) Pharmacy Consult 1 each 11/04/20 03:20 Consult Rx Perform Med Rec MISCELLANE ONCE PRN Consult order Sodium Chloride 3 ml 11/04/20 08:00 11/05/20 08:11 0.9 % Sodium Chloride Flush 3 Ml Syringe IVFLUSH 3 ml QSHIFT [facility] Administration Labs CBC & Chem 7: 11/05/20 06:23 11/05/20 06:23 Assessment and Plan (1) Hyponatremia: Problem details: In a setting of ALcohol use Na is gradually improving Urine studies not available /not done keep on PO water restriction Status: Acute Assessment and Plan: 65-year-old female with a past medical history of hypertension, hyperlipidemia, diabetes, COPD, CHF, chronic kidney disease, anxiety, depression, alcohol abuse presented to the hospital with a chief complaint of fall. Hyponatremia improving sodium 131 today continue gentle IV fluid monitor sodium right lower back pain CT abdomen done shows no acute abnormality continue pain management Diabetes: continue sliding scale insulin monitor BG s/p Fall: Mechanical in nature. CT head shows no bleeding Fall precautions PT/OT evaluated recommended trial of short-term rehab with transition to long-term care Hypertension/hyperlipidemia: Continue home medications. alcohol abuse currently not in any withdrawal monitor for withdrawal DVT prophylaxis: Lovenox Code status: Full code (2) SAGAR (acute kidney injury): Problem details: Cr is better Status: Acute Assessment and Plan: 65-year-old female with a past medical history of hypertension, hyperlipidemia, diabetes, COPD, CHF, chronic kidney disease, anxiety, depression, alcohol abuse presented to the hospital with a chief complaint of fall. Hyponatremia sodium 128 continue gentle IV fluid monitor sodium s/p Fall: Mechanical in nature. CT head shows no bleeding Fall precautions PT/OT CT abdomen done report pending continue supportive management Diabetes: continue sliding scale insulin monitor BG\ Hypertension/hyperlipidemia: Continue home medications. DVT prophylaxis: Lovenox
[2020-11-05 14:56] VITALS: BP 159/94; PULSE 89; RESP 20; TEMP 37.1; O2SAT 97
--- NOTE | 2020-11-05 15:15 | PC.NURSE ---
[facility] called for update on patient's status: Citlalli Devlin [phone]. Reached out to Case Management to have them contact [facility] for further information.
--- NOTE | 2020-11-05 15:44 | P.PNIM_ITS ---
Subjective Subjective Date of Service: 11/05/20 Interval History: Patient seen and examined at bedside patient was reporting pain and right lower back Review of Systems All other systems are reviewed and are negative Constitutional: Reports as per HPI and Reports no additional constitutional complaints Eyes: Reports as per HPI and Reports no additional eye complaints Reports system reviewed and no additional complaints, except as documented Cardiovascular: Reports as per HPI and Reports no additional cardiovascular complaints Respiratory: Reports as per HPI and Reports no additional respiratory complaints Gastrointestinal: Reports as per HPI and Reports no additional gastrointestinal complaints Genitourinary: Reports no additional female genitourinary complaints Musculoskeletal: Reports no additional musculoskeletal complaints Skin/Breast: Reports system reviewed and no additional complaints, except as docu Psychiatric: Reports no additional psychiatric complaints Endocrine: Reports no additional endocrine complaints Hematologic/Lymphatic: Reports no additional hematologic/lymphatic complaints Allergic/Immunologic: Reports no additional allergic/immunologic complaints Reports system reviewed and no additional complaints, except as documented and Reports Abnormal speech present Physical Exam Vital Signs: Vital Signs: Last Vital Signs Temp 98.7 F 11/05/20 14:56 Pulse 89 11/05/20 14:56 Resp 20 11/05/20 14:56 BP 159/94 H 11/05/20 14:56 Pulse Ox 97 11/05/20 14:56 Body Mass Index 34.4 Const: General: tired appearing Resp: Auscultation: rhonchi Cardio: Jugular venous distension: no JVD Heart sounds: S1 normal heart sound present and S2 normal heart sound present GI: Auscultation: normal bowel sounds Skin: General skin exam: no rashes or lesions noted Objective Data Current Medications Generic Name Dose Route Start Last Admin Trade Name Freq PRN Reason Stop Dose Admin Albuterol/Ipratropium 3 ml 11/04/20 03:40 Albuterol/Iprat 2.5/0.5mg 3 Ml Ampul.Neb INHALE RQ6H PRN Shortness of Breath/Wheezing Enoxaparin Sodium 40 mg 11/04/20 06:00 11/05/20 08:09 Enoxaparin Sodium 40 Mg/0.4 Ml Syringe SUBCUT 40 mg Q24H YUMIKO Administration Sodium Chloride 1,000 mls @ 50 mls/hr 11/04/20 03:45 11/05/20 08:09 Ns IVCONT 50 mls/hr .Q20H YUMIKO Administration Insulin Human Lispro 0 unit 11/04/20 07:30 11/05/20 11:43 Insulin Lispro 100 Unit/Ml 3 Ml Vial SUBCUT Not Given QIDACHS [facility] Protocol Lorazepam 1 mg 11/04/20 03:40 11/04/20 09:35 Lorazepam 1 Mg Tablet PO 11/08/20 03:39 1 mg Q4H PRN Administration Breakthrough alcohol withdrawa Oxycodone HCl 5 mg 11/05/20 10:22 11/05/20 10:28 Oxycodone Hcl Immed Release 5 Mg Tablet PO 5 mg Q6H PRN Administration Pain, Severe (Pain Scale 7-10) Pharmacy Consult 1 each 11/04/20 03:20 Consult Rx Perform Med Rec MISCELLANE ONCE PRN Consult order Sodium Chloride 3 ml 11/04/20 08:00 11/05/20 08:11 0.9 % Sodium Chloride Flush 3 Ml Syringe IVFLUSH 3 ml QSHIFT [facility] Administration Labs CBC & Chem 7: 11/05/20 06:23 11/05/20 06:23 Assessment and Plan (1) Hyponatremia: Problem details: In a setting of ALcohol use Na is gradually improving Urine studies not available /not done keep on PO water restriction Status: Acute Assessment and Plan: 65-year-old female with a past medical history of hypertension, hyperlipidemia, diabetes, COPD, CHF, chronic kidney disease, anxiety, depression, alcohol abuse presented to the hospital with a chief complaint of fall. Hyponatremia improving sodium 131 today continue gentle IV fluid monitor sodium Right lower back pain CT abdomen done shows no acute abnormality continue pain management Diabetes: continue sliding scale insulin monitor BG s/p Fall: Mechanical in nature. CT head shows no bleeding Fall precautions PT/OT evaluated recommended trial of short-term rehab with transition to long- term care Hypertension/hyperlipidemia: Continue home medications. alcohol abuse currently not in any withdrawal monitor for withdrawal DVT prophylaxis: Lovenox Code status: Full code (2) SAGAR (acute kidney injury): Problem details: Cr is better Status: Acute Assessment and Plan: 65-year-old female with a past medical history of hypertension, hyperlipidemia, diabetes, COPD, CHF, chronic kidney disease, anxiety, depression, alcohol abuse presented to the hospital with a chief complaint of fall. Hyponatremia sodium 128 continue gentle IV fluid monitor sodium s/p Fall: Mechanical in nature. CT head shows no bleeding Fall precautions PT/OT CT abdomen done report pending continue supportive management Diabetes: continue sliding scale insulin monitor BG\ Hypertension/hyperlipidemia: Continue home medications. DVT prophylaxis: Lovenox
--- NOTE | 2020-11-05 15:58 | MHC.CM.PN ---
i recieved a call from Heather at [facility]. pt has an open case on her. pt's HCP , samantha, who is also the patient's s.o. who lives c her and her primary child care assistant is named in this case. we do have a copy of this HCP from 2018 in EMR , there is also a document from 2020 stating patient does not have the capacity to make health care decisions. Heather asked that we include her in the dc planning process, ph: [phone]. Heather is aware that ref. to area STR's have been made and at this time the dc plan is to STR. cm to cont. to follow.
[2020-11-05 16:48] LABS: Glucose, Whole Blood 96 mg/dL (60-115)
[2020-11-05 19:52] VITALS: BP 160/100; PULSE 101; RESP 22; O2SAT 99
[2020-11-05] MEDS: Albuterol/Iprat 2.5/0.5MG 3 ML AMPUL.NEB INHALE (20:17)
[2020-11-05 20:19] VITALS: PULSE 97; O2SAT 98
[2020-11-05 21:30] LABS: Glucose, Whole Blood 105 mg/dL (60-115)
[2020-11-06] VITALS (8 sets, daily range): BP systolic 138–156; BP diastolic 52–115; PULSE 86–102; RESP 16–23; TEMP 36.5–36.9; O2SAT 95–100
[2020-11-06] MEDS: 0.9 % Sodium Chloride Flush 3 ML SYRINGE IVFLUSH ×2 (00:02→11:12)
[2020-11-06] MEDS: 0.9 % Sodium Chloride 1,000 ML 50 ML IVCONT ×2 (00:06→20:54)
[2020-11-06] MEDS: oxyCODONE HCl Immed Release 5 MG TABLET PO ×3 (01:54→20:54)
[2020-11-06] MEDS: LORazepam 1 MG TABLET PO (04:10)
[2020-11-06] MEDS: Enoxaparin Sodium 40 MG/0.4 ML SYRINGE SUBCUT (05:41)
[2020-11-06] MEDS: Albuterol/Iprat 2.5/0.5MG 3 ML AMPUL.NEB INHALE ×2 (06:26→17:29)
[2020-11-06 06:28] LABS: Anion Gap 13 (12-20); Blood Urea Nitrogen 17 mg/dL (9-16); Calcium 8.3 mg/dL (8.4-10.2); Carbon Dioxide 26 mmol/L (22-29); Chloride 93 mmol/L (96-108); Creatinine Clr Calc Pharmacy 44.5; Estimated Glomerular Filt Rate 41; Glucose Random 119 mg/dL (60-115); Potassium 4.2 mmol/L (3.3-5.1); Sodium 128 mmol/L (135-145)
[2020-11-06 08:36] LABS: Glucose, Whole Blood 126 mg/dL (60-115)
--- NOTE | 2020-11-06 10:05 | PM.PNNEP ---
Subjective Subjective Date of Service: 11/07/20 Interval history: Patient seen and examined at bedside Physical Exam Vital Signs: Vital Signs: Last Vital Signs Temp 97.7 F 11/06/20 08:00 Pulse 98 11/06/20 08:00 Resp 20 11/06/20 08:00 BP 139/115 H 11/06/20 08:00 Pulse Ox 95 11/06/20 08:00 Body Mass Index 34.4 Const: General: no acute distress Neck: Neck: Yes supple Resp: Auscultation: no crackles Cardio: Heart sounds: no rubs GI: Auscultation: normal bowel sounds Neuro: Motor exam (neuro): no asterixis Objective Data Labs CBC & Chem 7: 11/06/20 10:23 11/07/20 05:18 Labs: Laboratory Results - last 24 hr 11/05/20 11/05/20 11/05/20 11:42 16:36 21:10 Sodium Potassium Chloride Carbon Dioxide Anion Gap BUN Creatinine Estim Creat Clear Calc Estimated GFR POC Glucose 105 96 105 Random Glucose Calcium 11/06/20 11/06/20 05:24 08:33 Sodium 128 L Potassium 4.2 Chloride 93 L Carbon Dioxide 26 Anion Gap 13 BUN 17 H Creatinine 1.29 Estim Creat Clear Calc 44.5 Estimated GFR 41 POC Glucose 126 H Random Glucose 119 H Calcium 8.3 L Assessment & Plan Assessment and plan (1) Hyponatremia: Problem details: In a setting of ALcohol use Na is gradually improving- dropped again today DC IVF Urine studies not available /not done keep on PO water restriction Status: Acute (2) SAGAR (acute kidney injury): Problem details: Cr is better Status: Acute Time Spent With Patient Time: Total time spent is greater than 50% in coordination of care (as documented) at patient's floor/unit and/or counseling patient:
[2020-11-06 10:29] LABS: MANUAL DIFF FLAG NO
[2020-11-06 10:36] LABS: Basophils Percent Auto 0.1 % (0-2); Eosinophils Percent Auto 0.1 % (0-4); Hematocrit 28.7 % (37-47); Hemoglobin 9.9 g/dl (12.0-16.0); Imm Gran Abs Auto 0.04 X10*3/uL (0.00-0.03); Imm Gran Pct Auto 0.6 % (0.0-0.4); Lymphocytes Absolute Auto 0.9 X10*3/uL (1.2-4.9); Mean Corpuscular HGB Conc 34.5 g/dl (31.0-35.0); Mean Corpuscular Hemoglobin 31.1 pg (27.0-33.0); Mean Corpuscular Volume 90.3 fL (80-98); Mean Platelet Volume 8.5 fL (9.4-12.3); Monocytes Absolute Auto 1.2 X10*3/uL (0.1-1.2); Monocytes Percent Auto 17.1 % (2-11); Neutrophils Absolute Auto 4.8 X10*3/uL (2.0-8.3); Neutrophils Percent Auto 69.1 % (45-73); Platelet Count 334 X10*3/uL (160-400); Red Blood Count 3.18 X10*6/uL (4.20-5.50); Red Cell Distribution Width 12.6 % (11.0-16.0); White Blood Count 6.9 X10*3/uL (4.8-10.8)
[2020-11-06] MEDS: PHENobarbitaL 30 MG TABLET 60 MG PO (11:13)
[2020-11-06 11:34] LABS: Glucose, Whole Blood 104 mg/dL (60-115)
--- NOTE | 2020-11-06 12:18 | P.PNIM_ITS ---
Subjective Subjective Date of Service: 11/06/20 Interval History: Patient seen and examined at bedside patient was little anxious this morning reported some blood in the urine Review of Systems Constitutional: weakness Cardiovascular: no shortness of breath, reported some chest pain last night Respiratory: no shortness of breath no nausea vomiting Genitourinary: Reports no additional female genitourinary complaints Musculoskeletal: Reports no additional musculoskeletal complaints Skin/Breast: Reports system reviewed and no additional complaints, except as docu Psychiatric: Reports no additional psychiatric complaints Endocrine: Reports no additional endocrine complaints Hematologic/Lymphatic: Reports no additional hematologic/lymphatic complaints Allergic/Immunologic: Reports no additional allergic/immunologic complaints Physical Exam Vital Signs: Vital Signs: Last Vital Signs Temp 97.9 F 11/06/20 11:25 Pulse 89 11/06/20 11:25 Resp 23 H 11/06/20 11:25 BP 156/73 H 11/06/20 11:25 Pulse Ox 100 11/06/20 11:25 Body Mass Index 34.4 Const: General: tired appearing Resp: Auscultation: rhonchi Cardio: Jugular venous distension: no JVD Heart sounds: S1 normal heart sound present and S2 normal heart sound present GI: Auscultation: normal bowel sounds Skin: General skin exam: no rashes or lesions noted Objective Data Current Medications Generic Name Dose Route Start Last Admin Trade Name Freq PRN Reason Stop Dose Admin Albuterol/Ipratropium 3 ml 11/04/20 03:40 11/06/20 06:26 Albuterol/Iprat 2.5/0.5mg 3 Ml Ampul.Neb INHALE 3 ml RQ6H PRN Administration Shortness of Breath/Wheezing Enoxaparin Sodium 40 mg 11/04/20 06:00 11/06/20 05:41 Enoxaparin Sodium 40 Mg/0.4 Ml Syringe SUBCUT 40 mg Q24H YUMIKO Administration Sodium Chloride 1,000 mls @ 50 mls/hr 11/04/20 03:45 11/06/20 00:06 Ns IVCONT 50 mls/hr .Q20H YUMIKO Administration Insulin Human Lispro 0 unit 11/04/20 07:30 11/06/20 11:54 Insulin Lispro 100 Unit/Ml 3 Ml Vial SUBCUT Not Given QIDACHS YUMIKO Protocol Lorazepam 1 mg 11/04/20 03:40 11/06/20 04:10 Lorazepam 1 Mg Tablet PO 11/08/20 03:39 1 mg Q4H PRN Administration Breakthrough alcohol withdrawa Oxycodone HCl 5 mg 11/05/20 10:22 11/06/20 11:12 Oxycodone Hcl Immed Release 5 Mg Tablet PO 5 mg Q6H PRN Administration Pain, Severe (Pain Scale 7-10) Pharmacy Consult 1 each 11/04/20 03:20 Consult Rx Perform Med Rec MISCELLANE ONCE PRN Consult order Sodium Chloride 3 ml 11/04/20 08:00 11/06/20 11:12 0.9 % Sodium Chloride Flush 3 Ml Syringe IVFLUSH 3 ml QSHIFT YUMIKO Administration Labs CBC & Chem 7: 11/06/20 10:23 11/06/20 05:24 Assessment and Plan (1) Hyponatremia: Problem details: In a setting of ALcohol use Na is gradually improving- dropped again today DC IVF Urine studies not available /not done keep on PO water restriction Status: Acute Assessment and Plan: 65-year-old female with a past medical history of hypertension, hyperlipidemia, diabetes, COPD, CHF, chronic kidney disease, anxiety, depression, alcohol abuse presented to the hospital with a chief complaint of fall. Hyponatremia improving sodium 128 today continue gentle IV fluid monitor sodium brief episode of AFib on monitor resolve on its own currently in sinus rhythm monitor on telemetry Right lower back pain CT abdomen done shows no acute abnormality continue pain management Diabetes: continue sliding scale insulin monitor BG s/p Fall: Mechanical in nature. CT head shows no bleeding Fall precautions PT/OT evaluated recommended trial of short-term rehab with transition to long- term care Hypertension/hyperlipidemia: Continue home medications. alcohol abuse appears little anxious Will give 1 dose of phenobarbitall monitor for withdrawal DVT prophylaxis: Lovenox Code status: Full code (2) SAGAR (acute kidney injury): Problem details: Cr is better Status: Acute
--- NOTE | 2020-11-06 13:16 | MHC.CM.PN ---
Patient remains in ICU but is an [facility] patient. Aniticipate patient will discharge to [facility] because it does not appear the sig other/HCP, Kahlil can care for patient. Clinical updates sent via [employer] to all facilities following patient. Heather from [facility] can be reached via telephone at [phone], and would like to be updated as discharge plan is confirmed. Continue to monitor for d/c needs.
[2020-11-06 13:40] LABS: Troponin-I High Sensitivity 9.6 ng/L (<3.5-17.0)
[2020-11-06 16:28] LABS: Glucose, Whole Blood 94 mg/dL (60-115)
[2020-11-06 20:59] LABS: Glucose, Whole Blood 111 mg/dL (60-115)
[2020-11-07] VITALS (10 sets, daily range): BP systolic 152–171; BP diastolic 66–87; PULSE 81–96; RESP 18–20; TEMP 36.1–36.6; O2SAT 95–100
[2020-11-07] MEDS: 0.9 % Sodium Chloride Flush 3 ML SYRINGE IVFLUSH ×3 (00:05→17:53)
--- NOTE | 2020-11-07 04:44 | PC.NURSE ---
CARE ASSUMED 23:15...AWAKE..ALERT..ORIENTED X3 BUT VAGUE RESPONSES AT TIMES...OOB FRQUENTLY TO VOID 150ml PINK TINGED URINE..ER NOTE 11/04 NOTES STRAIGHT CATH'C 900ml...BLADDER SCANNED WITH INCONSISTANT READINGS 0ml--349ml--120ml...DR LEE UPDATED....STRAIGHT CATH'D X1 FOR 150ml ANA LILIA URINE..TOLERATED W/O INCIDENT...VSS...CURRENTLY DOZING..NO DISTRESS
[2020-11-07 05:59] LABS: Anion Gap 13 (12-20); Blood Urea Nitrogen 17 mg/dL (9-16); Calcium 8.3 mg/dL (8.4-10.2); Carbon Dioxide 25 mmol/L (22-29); Chloride 94 mmol/L (96-108); Creatinine Clr Calc Pharmacy 44.2; Estimated Glomerular Filt Rate 41; Glucose Random 114 mg/dL (60-115); Potassium 3.8 mmol/L (3.3-5.1); Sodium 128 mmol/L (135-145)
[2020-11-07] MEDS: Enoxaparin Sodium 40 MG/0.4 ML SYRINGE SUBCUT (06:24)
[2020-11-07 07:07] LABS: Glucose, Whole Blood 114 mg/dL (60-115)
[2020-11-07] MEDS: Albuterol/Iprat 2.5/0.5MG 3 ML AMPUL.NEB INHALE ×2 (09:15→19:27)
--- NOTE | 2020-11-07 09:57 | P.PNNP_ITS ---
Subjective Subjective Date of Service: 11/07/20 Interval history: Events noted Wants to go home Physical Exam Vital Signs: Vital Signs: Last Vital Signs Temp 97.5 F 11/07/20 08:00 Pulse 87 11/07/20 09:17 Resp 20 11/07/20 08:00 BP 167/79 H 11/07/20 08:00 Pulse Ox 100 11/07/20 08:00 Body Mass Index 34.4 Const: General: no acute distress Neck: Neck: Yes supple Resp: Auscultation: no crackles Cardio: Heart sounds: no rubs GI: Auscultation: normal bowel sounds Neuro: Motor exam (neuro): no asterixis Objective Data Labs CBC & Chem 7: 11/06/20 10:23 11/07/20 05:18 Labs: Laboratory Results - last 24 hr 11/06/20 11/06/20 11/06/20 10:23 11:31 12:48 WBC 6.9 RBC 3.18 L Hgb 9.9 L Hct 28.7 L MCV 90.3 MCH 31.1 MCHC 34.5 RDW 12.6 Plt Count 334 MPV 8.5 L Immature Gran % (Auto) 0.6 H Neut % (Auto) 69.1 Lymph % (Auto) 13.0 L [place] % (Auto) 17.1 H Eos % (Auto) 0.1 Baso % (Auto) 0.1 Lymph # (Auto) 0.9 L [place] # (Auto) 1.2 Eos # (Auto) 0.0 Baso # (Auto) 0.0 Abs Immat Gran (auto) 0.04 H Absolute Neuts (auto) 4.8 Absolute Nucleated RBC 0.000 Nucleated RBC % (auto) 0.0 Sodium Potassium Chloride Carbon Dioxide Anion Gap BUN Creatinine Estim Creat Clear Calc Estimated GFR POC Glucose 104 Random Glucose Calcium Troponin I High Sens 9.6 D 11/06/20 11/06/20 11/07/20 16:23 20:55 05:18 WBC RBC Hgb Hct MCV MCH MCHC RDW Plt Count MPV Immature Gran % (Auto) Neut % (Auto) Lymph % (Auto) [place] % (Auto) Eos % (Auto) Baso % (Auto) Lymph # (Auto) [place] # (Auto) Eos # (Auto) Baso # (Auto) Abs Immat Gran (auto) Absolute Neuts (auto) Absolute Nucleated RBC Nucleated RBC % (auto) Sodium 128 L Potassium 3.8 Chloride 94 L Carbon Dioxide 25 Anion Gap 13 BUN 17 H Creatinine 1.30 Estim Creat Clear Calc 44.2 Estimated GFR 41 POC Glucose 94 111 Random Glucose 114 Calcium 8.3 L Troponin I High Sens 11/07/20 07:03 WBC RBC Hgb Hct MCV MCH MCHC RDW Plt Count MPV Immature Gran % (Auto) Neut % (Auto) Lymph % (Auto) [place] % (Auto) Eos % (Auto) Baso % (Auto) Lymph # (Auto) [place] # (Auto) Eos # (Auto) Baso # (Auto) Abs Immat Gran (auto) Absolute Neuts (auto) Absolute Nucleated RBC Nucleated RBC % (auto) Sodium Potassium Chloride Carbon Dioxide Anion Gap BUN Creatinine Estim Creat Clear Calc Estimated GFR POC Glucose 114 Random Glucose Calcium Troponin I High Sens Assessment & Plan Assessment and plan (1) Hyponatremia: Problem details: In a setting of ALcohol use Na is gradually improving- dropped again today DC IVF Urine studies not available /not done keep on PO water restriction Status: Acute (2) SAGAR (acute kidney injury): Problem details: Cr is better Status: Acute Time Spent With Patient Time: Total time spent is greater than 50% in coordination of care (as docume nted) at patient's floor/unit and/or counseling patient:
--- NOTE | 2020-11-07 11:11 | P.PNIM_ITS ---
Subjective Subjective Date of Service: 11/07/20 Interval History: Patient seen and examined at bedside patient was little anxious this morning Reported some blood in the urine Review of Systems Constitutional: weakness Cardiovascular: no shortness of breath, reported some chest pain last night Respiratory: no shortness of breath no nausea vomiting Genitourinary: Reports no additional female genitourinary complaints Musculoskeletal: Reports no additional musculoskeletal complaints Skin/Breast: Reports system reviewed and no additional complaints, except as docu Psychiatric: Reports no additional psychiatric complaints Endocrine: Reports no additional endocrine complaints Hematologic/Lymphatic: Reports no additional hematologic/lymphatic complaints Allergic/Immunologic: Reports no additional allergic/immunologic complaints Physical Exam Vital Signs: Vital Signs: Last Vital Signs Temp 97.5 F 11/07/20 08:00 Pulse 87 11/07/20 09:17 Resp 20 11/07/20 08:00 BP 167/79 H 11/07/20 08:00 Pulse Ox 100 11/07/20 08:00 Body Mass Index 34.4 Const: General: tired appearing Resp: Auscultation: rhonchi Cardio: Jugular venous distension: no JVD Heart sounds: S1 normal heart sound present and S2 normal heart sound present GI: Auscultation: normal bowel sounds Skin: General skin exam: no rashes or lesions noted Objective Data Current Medications Generic Name Dose Route Start Last Admin Trade Name Freq PRN Reason Stop Dose Admin Albuterol/Ipratropium 3 ml 11/04/20 03:40 11/07/20 09:15 Albuterol/Iprat 2.5/0.5mg 3 Ml Ampul.Neb INHALE 3 ml RQ6H PRN Administration Shortness of Breath/Wheezing Enoxaparin Sodium 40 mg 11/04/20 06:00 11/07/20 06:24 Enoxaparin Sodium 40 Mg/0.4 Ml Syringe SUBCUT 40 mg Q24H YUMIKO Administration Insulin Human Lispro 0 unit 11/04/20 07:30 11/07/20 08:08 Insulin Lispro 100 Unit/Ml 3 Ml Vial SUBCUT Not Given QIDACHS [facility] Protocol Lorazepam 1 mg 11/04/20 03:40 11/06/20 04:10 Lorazepam 1 Mg Tablet PO 11/08/20 03:39 1 mg Q4H PRN Administration Breakthrough alcohol withdrawa Oxycodone HCl 5 mg 11/05/20 10:22 11/06/20 20:54 Oxycodone Hcl Immed Release 5 Mg Tablet PO 5 mg Q6H PRN Administration Pain, Severe (Pain Scale 7-10) Pharmacy Consult 1 each 11/04/20 03:20 Consult Rx Perform Med Rec MISCELLANE ONCE PRN Consult order Sodium Chloride 3 ml 11/04/20 08:00 11/07/20 08:08 0.9 % Sodium Chloride Flush 3 Ml Syringe IVFLUSH 3 ml QSHIFT YUMIKO Administration Labs CBC & Chem 7: 11/06/20 10:23 11/07/20 05:18 Assessment and Plan (1) Hyponatremia: Status: Acute Assessment and Plan: 65-year-old female with a past medical history of hypertension, hyperlipidemia, diabetes, COPD, CHF, chronic kidney disease, anxiety, depression, alcohol abuse presented to the hospital with a chief complaint of fall. Hyponatremia improving sodium 128 today received fluid monitor sodium nephrology following Brief episode of AFib on monitor resolve on its own currently in sinus rhythm monitor on telemetry Right lower back pain CT abdomen done shows no acute abnormality continue pain management Diabetes: continue sliding scale insulin monitor BG s/p Fall: Mechanical in nature. CT head shows no bleeding Fall precautions PT/OT evaluated recommended trial of short-term rehab with transition to long- term care Hypertension/hyperlipidemia: Continue home medications. alcohol abuse no signs of withdrawal today received 1 dose of phenobarbital monitor for withdrawal DVT prophylaxis: Lovenox Code status: Full code (2) SAGAR (acute kidney injury): Problem details: Cr is better Status: Acute
[2020-11-07 11:39] LABS: Glucose, Whole Blood 112 mg/dL (60-115)
[2020-11-07] MEDS: oxyCODONE HCl Immed Release 5 MG TABLET PO ×2 (11:48→17:53)
--- NOTE | 2020-11-07 13:53 | MHC.CM.PN ---
Information obtained from Review of CM notes and discussion with covering MD Pt has a long standing hx of admissions and cognitive deficits r/t Korsakoffs d/t ETOH hx. She has lifelong activation of HCP on file d/t same. Her HCP is her significant other Juanjo who stated to prior CM that he is unable to care for pt at home as she has been having increased falls and he is no longer physically able to assist her up and has been relying on EMS. Referrals were placed for STR and pt is being followed by several facilities. Call placed to pts SENIOR [employer] PLAN ADMINISTRATOR egg caser Emily at [phone] to give an update Call placed to [facility] social work case manager Jennifer to give update: message left - Call placed to pt's activated HCP Juanjo at updated number [phone]: explained d/c plan of STR - he verbalized understanding but was afraid of pt being upset and crying because she wants to go home. Educated Juanjo on importance of home safety and risk of serious injury - he is in agreement of STR and will await call tomorrow once a facility is known.
[2020-11-07 16:28] LABS: Glucose, Whole Blood 106 mg/dL (60-115)
[2020-11-07] MEDS: Thiamine HCL 100 MG TABLET PO (17:52)
[2020-11-07] MEDS: Metoprolol Succinate ER 25 MG TAB.ER.24H PO (17:52)
[2020-11-07 20:31] LABS: Glucose, Whole Blood 124 mg/dL (60-115)
[2020-11-07] MEDS: Pravastatin Sodium 20 MG TABLET PO (21:14)
[2020-11-07] MEDS: Sennosides 8.6 MG TABLET PO (21:14)
[2020-11-07] MEDS: QUEtiapine Fumarate 50 MG TABLET PO (21:14)
[2020-11-07] MEDS: Aspirin Enteric Coated 81 MG TABLET.DR PO (21:14)
[2020-11-07] MEDS: Montelukast Sodium 10 MG TABLET PO (21:14)
[2020-11-08] VITALS: BP 146/91; PULSE 90; RESP 20; TEMP 37.3; O2SAT 99
--- NOTE | 2020-11-08 | ECG_ITS ---
Test Reason : CP Blood Pressure : / mmHG Vent. Rate : 079 BPM Atrial Rate : 079 BPM P-R Int : 144 ms QRS Dur : 096 ms QT Int : 424 ms P-R-T Axes : 040 -15 026 degrees QTc Int : 486 ms Normal sinus rhythm with Premature atrial complexes Incomplete right bundle branch block Nonspecific T wave abnormality Prolonged QT Abnormal ECG When compared with ECG of 23-OCT-2020 02:04, No significant changes seen Referred By: Erich Jane Electronically Signed By:CAMPOS KELLER MD
[2020-11-08] MEDS: 0.9 % Sodium Chloride Flush 3 ML SYRINGE IVFLUSH ×2 (00:07→10:05)
[2020-11-08 04:00] VITALS: BP 134/63; PULSE 93; RESP 20; TEMP 36.9; O2SAT 98
[2020-11-08] MEDS: oxyCODONE HCl Immed Release 5 MG TABLET PO ×2 (04:30→10:36)
[2020-11-08] MEDS: Enoxaparin Sodium 40 MG/0.4 ML SYRINGE SUBCUT (04:57)
[2020-11-08 06:45] LABS: Anion Gap 15 (12-20); Blood Urea Nitrogen 18 mg/dL (9-16); Carbon Dioxide 23 mmol/L (22-29); Chloride 96 mmol/L (96-108); Creatinine Clr Calc Pharmacy 41.7; Estimated Glomerular Filt Rate 38; Glucose Random 99 mg/dL (60-115); Potassium 3.7 mmol/L (3.3-5.1); Sodium 130 mmol/L (135-145)
[2020-11-08 07:31] VITALS: BP 170/81; PULSE 83; RESP 17; TEMP 37.2; O2SAT 98
[2020-11-08 08:07] LABS: Glucose, Whole Blood 97 mg/dL (60-115)
--- NOTE | 2020-11-08 09:21 | P.PNNP_ITS ---
Subjective Subjective Date of Service: 11/08/20 Interval history: Patient seen and examined at bedside Physical Exam Vital Signs: Vital Signs: Last Vital Signs Temp 99 F 11/08/20 07:31 Pulse 83 11/08/20 07:31 Resp 17 11/08/20 07:31 BP 170/81 H 11/08/20 07:31 Pulse Ox 98 11/08/20 07:31 Body Mass Index 34.4 Const: General: no acute distress Neck: Neck: Yes supple Resp: Auscultation: no crackles Cardio: Heart sounds: no rubs GI: Auscultation: normal bowel sounds Neuro: Motor exam (neuro): no asterixis Objective Data Labs CBC & Chem 7: 11/06/20 10:23 11/08/20 05:15 Labs: Laboratory Results - last 24 hr 11/07/20 11/07/20 11/07/20 11:36 16:25 20:27 Sodium Potassium Chloride Carbon Dioxide Anion Gap BUN Creatinine Estim Creat Clear Calc Estimated GFR POC Glucose 112 106 124 H Random Glucose Calcium 11/08/20 11/08/20 05:15 07:33 Sodium 130 L Potassium 3.7 Chloride 96 Carbon Dioxide 23 Anion Gap 15 BUN 18 H Creatinine 1.38 Estim Creat Clear Calc 41.7 Estimated GFR 38 POC Glucose 97 Random Glucose 99 Calcium 8.0 L Assessment & Plan Assessment and plan (1) Hyponatremia: Status: Acute Assessment and Plan: Due to non osmotic ADH relase and excessive alchohol intake NA gradually corrected RAte of correction acceptable Keep on PO water restriction (2) SAGAR (acute kidney injury): Problem details: Cr is better Status: Acute Time Spent With Patient Time: Total time spent is greater than 50% in coordination of care (as doc umented) at patient's floor/unit and/or counseling patient:
[2020-11-08 09:43] VITALS: BP 170/81; PULSE 83; O2SAT 98
[2020-11-08] MEDS: Escitalopram Oxalate 20 MG TABLET PO (10:02)
[2020-11-08] MEDS: Thiamine HCL 100 MG TABLET PO (10:03)
[2020-11-08] MEDS: QUEtiapine Fumarate 50 MG TABLET PO (10:03)
[2020-11-08] MEDS: Sennosides 8.6 MG TABLET PO (10:03)
[2020-11-08] MEDS: Folic Acid 1 MG TABLET PO (10:04)
[2020-11-08] MEDS: Furosemide 20 MG TABLET PO (10:04)
[2020-11-08 10:13] VITALS: BP 170/81; PULSE 83
[2020-11-08] MEDS: Metoprolol Succinate ER 50 MG TAB.ER.24H PO (10:13)
[2020-11-08 11:22] LABS: Glucose, Whole Blood 113 mg/dL (60-115)
--- NOTE | 2020-11-08 11:47 | MHC.CM.PN ---
PT TO DC TO [facility] TODAY AT 1400 HOURS PENDING COVID RESULTS. CM CONTACTED PTS S/O/HCP MIKO PARKER ([phone]) WHO REPORTS BEING AGREEABLE TO THIS PLAN. MIKO REPORTS HE WILL BE ABLE TO BRING PTS CLOTHES AND NEEDED TOILETRIES TO THE SNF SINCE IT IS IN [place]. HE IS AWARE HE WILL ALSO HAVE TO SIGN CONSENTS FOR THE PT. PTS IMM WAS REVIEWED WITH MIKO AND HE REPORTS UNDERSTANDING AND BEING FAMILIAR WITH THE DOCUMENT. COPY WILL BE PLACED AT BEDSIDE PER DISCUSSION. PT WILL DC TO [facility] TODAY AT 1400 HOURS [facility]IA [facility]
[2020-11-08 12:00] VITALS: BP 162/64; PULSE 86; RESP 18; TEMP 36.5; O2SAT 98
[2020-11-08 12:34] LABS: Troponin-I High Sensitivity 13.6 ng/L (<3.5-17.0)
--- NOTE | 2020-11-08 13:10 | PM.DS ---
DS: Providers Provider Date of Service: 11/08/20 Date of admission: 11/04/20 03:41 Primary care physician: Unknown Physician Consults: 11/04/20 03:40 Consult to Nephrology Routine Consulting Provider: Juvenal Lindsay Reason for consultation: Hyponatremia 11/05/20 08:34 Consult Respiratory Therapy Routine Reason for consultation: SLEEP APNEA, NEEDS MACHINE DS: Diagnosis Discharge Diagnosis (1) Hyponatremia: Status: Acute (2) SAGAR (acute kidney injury): Status: Acute Problem details: Cr is better DS: Medications Discharge Medications Home Medications: Home Medications Medication Instructions Recorded Confirmed Flovent HFA 1 puff INHALATION BID 08/18/20 11/04/20 albuterol sulfate [Ventolin HFA] 2 puff INHALATION Q4-6H PRN 08/18/20 11/04/20 aspirin 81 mg PO BEDTIME 08/18/20 11/04/20 citalopram 40 mg PO QAM 08/18/20 11/04/20 ipratropium-albuterol 1 amp INHALATION QID PRN 08/18/20 11/04/20 montelukast 10 mg PO QPM 08/18/20 11/04/20 acetaminophen 650 mg PO Q12H PRN 10/10/20 11/04/20 baclofen 20 mg PO DAILY PRN 10/10/20 11/04/20 clonazepam 1 mg PO BID 10/10/20 11/04/20 metoprolol succinate 25 mg PO DAILY 10/10/20 11/04/20 pravastatin 20 mg PO BEDTIME 10/10/20 11/04/20 quetiapine 50 mg PO BID 10/10/20 11/04/20 sennosides [senna] 8.6 mg PO BID 10/10/20 11/04/20 metformin 1 tab PO DAILY 11/04/20 11/04/20 Previous Rx's Medication Instructions Recorded folic acid 1 mg PO DAILY #30 tab 08/28/20 insulin lispro [Humalog U-100 1 sliding scale dose SUBCUT 08/28/20 Insulin] QIDACHS #10 ml thiamine HCl (vitamin B1) 100 mg PO DAILY #30 tab 08/28/20 furosemide [Lasix] 20 mg PO DAILY #30 tab 10/21/20 DS: Summary Hospital Course Hospital Course: HPI 65-year-old female with a past medical history of hypertension, hyperlipidemia, diabetes, COPD, question CHF, anxiety, depression presented to the hospital with a chief complaint of fall. Patient reported that she was lying in her bed and fell off the bed and hit her head and subsequently came to the ER for further help. Patient also complained that she fell on her right side. Patient mentioned that he had an episode of chest pain, nonradiating. Currently resolved. Mention that she has been drinking alcohol. Denies any numbness tingling, fevers chills, chest pain palpitations, GI or symptoms. Review of all other systems is negative except mentioned above ER course: Per ER team patient's exam was nonfocal, at CT head, CT C-spine, shoulder x-ray, hip x-ray showed no acute findings CBC at her baseline numbers. But on chemistry noted to have hyponatremia to 122 and chloride of 87. Troponin negative. EKG nonischemic. Admitted to the hospital for further management. COVID-19 negative. Hospital course 65-year-old female admitted with fall and hyponatremia, Patient was started on gentle IV fluid, Nephrology was consulted, patient's hyponatremia improved sodium improved to 130, IV fluids were stopped, , sodium remains stable, Patient was evaluated by Physical therapy recommended trial of short-term rehab with transition to long-term care, Patient also noticed to have 1 episode small burst of AFib converted itself to sinus rhythm ,Patient HR remains stable and remains in sinus rhythm , patient also has episode of atypical chest pain, high sensitivity troponin were negative and EKG shows no ischemic change, chest pain was resolved, Lopressor dose was increased from 25-50 as blood pressure was elevated, blood pressure improved and remained stable, patient was stable discharged to short-term rehab Patient was deemed incompetent during last admission and healthcare proxy was invoked during last admission Time Spent with Patient Time attestation: Total time spent providing and/or coordinating discharge services: Discharge coordination time: Greater than 30 minutes Physical Exam Vital Signs: Vital Signs: Last Vital Signs Temp 97.7 F 11/08/20 12:00 Pulse 86 11/08/20 12:00 Resp 18 11/08/20 12:00 BP 162/64 H 11/08/20 12:00 Pulse Ox 98 11/08/20 12:00 Body Mass Index 34.4 DS: Data Data Completed and Pending Labs on day of discharge: Laboratory Results - last 24 hr 11/07/20 11/07/20 11/08/20 16:25 20:27 05:15 Sodium 130 L Potassium 3.7 Chloride 96 Carbon Dioxide 23 Anion Gap 15 BUN 18 H Creatinine 1.38 Estim Creat Clear Calc 41.7 Estimated GFR 38 POC Glucose 106 124 H Random Glucose 99 Calcium 8.0 L Troponin I High Sens 11/08/20 11/08/20 11/08/20 07:33 11:14 11:38 Sodium Potassium Chloride Carbon Dioxide Anion Gap BUN Creatinine Estim Creat Clear Calc Estimated GFR POC Glucose 97 113 Random Glucose Calcium Troponin I High Sens 13.6 Discharge Plan Discharge Anticipated Discharge Date/Time: 11/08/20 11:04 Patient Disposition: Home Health Service Referrals: Irving Jorge [Outside] Name,MD Ryder [Physician] - 1 Week ([facility] Nurse will follow up.) Discharge Medications: New metoprolol succinate 50 mg Tablet Extended Release 24 Hr 50 mg PO DAILY 30 Days Qty: 30 RF: 0 Continued ipratropium-albuterol 0.5 mg-3 mg(2.5 mg base)/3 mL solution for nebulization 1 amp inhalation QID PRN (Reason: Shortness Of Breath Or Wheezing) RF: 0 citalopram 40 mg tablet 40 mg PO QAM RF: 0 aspirin 81 mg tablet,delayed release (DR/EC) 81 mg PO BEDTIME RF: 0 montelukast 10 mg tablet 10 mg PO QPM RF: 0 Flovent HFA 220 mcg/actuation HFA aerosol inhaler 1 puff inhalation BID RF: 0 albuterol sulfate [Ventolin HFA] 90 mcg/actuation HFA aerosol inhaler 2 puff inhalation Q4-6H PRN (Reason: Shortness Of Breath Or Wheezing) RF: 0 thiamine HCl (vitamin B1) 100 mg Tablet 100 mg PO DAILY Qty: 30 RF: 0 folic acid 1 mg Tablet 1 mg PO DAILY Qty: 30 RF: 0 insulin lispro [Humalog U-100 Insulin] 100 unit/mL Solution 1 sliding scale dose subcut QIDACHS Qty: 10 RF: 0 sennosides [senna] 8.6 mg Tablet 8.6 mg PO BID RF: 0 clonazepam 1 mg Tablet 1 mg PO BID RF: 0 acetaminophen 650 mg Tablet Extended Release 650 mg PO Q12H PRN (Reason: Pain) RF: 0 baclofen 20 mg Tablet 20 mg PO DAILY PRN (Reason: Pain) RF: 0 pravastatin 20 mg Tablet 20 mg PO BEDTIME RF: 0 quetiapine 50 mg Tablet 50 mg PO BID RF: 0 furosemide [Lasix] 20 mg tablet 20 mg PO DAILY Qty: 30 RF: 0 metformin 500 mg tablet 1 tab PO DAILY RF: 0 Discontinued metoprolol succinate 25 mg Tablet Extended Release 24 Hr 25 mg PO DAILY RF: 0 Discharge Orders: Discharge Order (Routine); Ordered 11/08/20 Ordered By: Erich Jane Diet: advance to usual diet Activity on Discharge: As tolerated Stand Alone Forms: Patient Portal Discharge page Visit Report Forms: Patient Portal Discharge page Care Plan Goals: see above Plan of Treatment: see above
[2020-11-08 13:24] LABS: COVID-19 Test Negative (Negative)
== END 2020-11-08 14:00 | disposition home health service (06) | DRG 683 ==
LOC: HO.ED 11-04 03:35 → HO.EDOVER 11-04 03:53 → HO.ICU 11-05 07:05 → HO.IMC 11-07 12:17
PROVIDERS: Admitting Provider Hospitalist; Emergency Provider Emergency Medicine; PCP Internal Medicine Geriatric Medicine; Visit Provider Internal Medicine
DX: N17.9 Acute kidney failure, unspecified (principal); E87.1 Hypo-osmolality and hyponatremia; F10.10 Alcohol abuse, uncomplicated; Y90.6 Blood alcohol level of 120-199 mg/100 ml; I25.10 Atherosclerotic heart disease of native coronary artery without angina pectoris; E11.9 Type 2 diabetes mellitus without complications; J44.9 Chronic obstructive pulmonary disease, unspecified; I11.0 Hypertensive heart disease with heart failure; F31.9 Bipolar disorder, unspecified; F17.210 Nicotine dependence, cigarettes, uncomplicated; Z71.6 Tobacco abuse counseling; I48.91 Unspecified atrial fibrillation; Z20.822 Contact with and (suspected) exposure to COVID-19; Z23 Encounter for immunization; Z79.82 Long term (current) use of aspirin; Z79.4 Long term (current) use of insulin; Z79.899 Other long term (current) drug therapy
CPT/HCPCS: 36415; 70450; 71045; 72125; 73030; 73502; 74176; 80048; 80076; 80320; 81001; 82947; 83690; 83735; 83880; 84484; 85025; 87635; 90471; 90686; 93005; 94640; 96360; 97162; 97166; 97530; 99284; 99285; J1650

== ENCOUNTER 2020-12-20 12:58 | Emergency (ER) | payer MEDICARE, MEDICAID, SELFPAY ==
--- NOTE | ~2020-12-20 | CT_ITS ---
EXAMINATION: CT HEAD WITHOUT CONTRAST CLINICAL INFORMATION: Altered mental status. COMPARISON: CT head 11/04/2020, CT head 08/19/2020 TECHNIQUE: Contiguous axial imaging was performed from the skull base to vertex without intravenous administration of contrast. Additional 2-D coronal and sagittal reformatted images are generated on the CT workstation and uploaded to PACS. This CT examination was performed using dose optimization techniques as appropriate, variously including the following: *Automated exposure control *Adjustment of mA and/or kV according to patient size (this includes techniques or standardized protocols for targeted exams where dose is matched to indication/reason for exam; i.e. extremities or head) *Use of iterative reconstruction technique DLP: 850 mGy-cm FINDINGS: There is no intracranial hemorrhage, hematoma, or extra-axial fluid collection. The ventricles are normal in size. There is no hydrocephalus, edema, or mass effect. The kim-white matter differentiation appears symmetric. There is no visible acute territorial infarct or mass lesion. Bony structures are stable. No acute calvarial abnormality. There are no air-fluid levels in the sinuses or middle ears. There are chronic changes in both mastoids with opacified air cells and defects in the attics. These could be postsurgical. Clinically correlate. Results called and discussed with Dr. Fara resendez in the emergency department at approximately [address]/CT head/brain wo con IMPRESSION: No acute intracranial abnormality.
--- NOTE | ~2020-12-20 | XR_ITS ---
EXAMINATION: XR CHEST CLINICAL INFORMATION: Shortness of breath. Possible pneumonia. COMPARISON: Chest radiographs 11/04/2020, 10/22/2020 TECHNIQUE: Portable upright AP view of the chest was obtained. FINDINGS: Lungs are clear. There is no airspace consolidation or definite groundglass opacity. Mild coarsening bronchiolar markings right lower zone are stable from prior studies. The costophrenic sulci are clear. The heart is within limits of normal size. The vascularity is normal. The hilar and mediastinal contours are unremarkable. There is arthropathy again seen right shoulder and degenerative changes thoracic spine. XR/XR chest 1V IMPRESSION: Unremarkable examination.
[2020-12-20 13:14] VITALS: BP 132/63; BP 150/70; PULSE 91; PULSE 92; RESP 16; TEMP 36.9; O2SAT 96; O2SAT 99; BMI 36.8
--- NOTE | 2020-12-20 13:16 | ECG_ITS ---
Test Reason : AMS Blood Pressure : / mmHG Vent. Rate : 084 BPM Atrial Rate : 084 BPM P-R Int : 144 ms QRS Dur : 090 ms QT Int : 394 ms P-R-T Axes : 068 -13 070 degrees QTc Int : 465 ms Normal sinus rhythm with sinus arrhythmia T wave abnormality, consider anterior ischemia Abnormal ECG When compared with ECG of 08-NOV-2020 11:51, Inverted T waves have replaced nonspecific T wave abnormality in Anterior leads Referred By: Uri Chaudhari Electronically Signed By:LYNDA GLEZ
--- NOTE | 2020-12-20 13:20 | PC.NURSE ---
pt restraint d/c'd prior to transfer [facility] [place] [facility] [place]. pt states she was just upset because i am not feeling sick, so i did not want to come to the hosp . aware.
[2020-12-20 13:57] VITALS: PULSE 85; O2SAT 98
[2020-12-20] MEDS: Albuterol Sulfate (0.083%) 2.5 MG/3 ML VIAL.NEB INHALE (13:57)
[2020-12-20] MEDS: HaloperidoL 5 MG TABLET PO (14:00)
[2020-12-20] MEDS: LORazepam 1 MG TABLET PO (14:01)
[2020-12-20 14:12] LABS: MANUAL DIFF FLAG NO
[2020-12-20 14:16] VITALS: BP 145/67; PULSE 88; RESP 14; TEMP 36.7; O2SAT 96
[2020-12-20 14:21] LABS: Basophils Percent Auto 0.3 % (0-2); Eosinophils Percent Auto 0.3 % (0-4); Hematocrit 31.7 % (37-47); Hemoglobin 10.7 g/dl (12.0-16.0); Imm Gran Abs Auto 0.05 X10*3/uL (0.00-0.03); Imm Gran Pct Auto 0.8 % (0.0-0.4); Lymphocytes Absolute Auto 1.5 X10*3/uL (1.2-4.9); Lymphocytes Percent Auto 22.5 % (20-40); Mean Corpuscular HGB Conc 33.8 g/dl (31.0-35.0); Mean Corpuscular Hemoglobin 30.3 pg (27.0-33.0); Mean Corpuscular Volume 89.8 fL (80-98); Mean Platelet Volume 9.1 fL (9.4-12.3); Monocytes Absolute Auto 0.6 X10*3/uL (0.1-1.2); Monocytes Percent Auto 8.3 % (2-11); Neutrophils Absolute Auto 4.5 X10*3/uL (2.0-8.3); Neutrophils Percent Auto 67.8 % (45-73); Platelet Count 327 X10*3/uL (160-400); Red Blood Count 3.53 X10*6/uL (4.20-5.50); Red Cell Distribution Width 14.6 % (11.0-16.0); White Blood Count 6.6 X10*3/uL (4.8-10.8)
--- NOTE | 2020-12-20 14:23 | PC.NURSE ---
pt is alert and oriented to self, place and situation but does have some dementia at baseline. eye contact and verbal response appropriate for setting. pt speaks frisian and able to speak in full sentences and make needs known. lung sounds clear but diminished bilaterally, respirations are even and non-labored. respiratory therapist at bedside administering nebulizer treatment. heart rate and sounds normal. bowel sounds active x4. pt currently resting comfortably in bed connected to bedside monitor. no questions or concerns at this time. call jones in reach.
[2020-12-20 14:32] LABS: Lactic Acid 1.5 mmol/L (0.5-2.0)
[2020-12-20 14:35] LABS: Ethanol < 10 mg/dL
[2020-12-20 14:36] LABS: COVID-19 Test Negative (Negative); IDNOW Serial# 9DD0AD1C; Prothrombin Time 11.6 SEC (10.8-13.0)
[2020-12-20 14:38] LABS: Partial Thromboplastin Time 34.4 SEC (24.1-38.0)
[2020-12-20 14:41] LABS: Troponin-I High Sensitivity 4.5 ng/L (<3.5-17.0)
[2020-12-20 14:43] LABS: Alanine Aminotransferase 9 U/L (0-31); Alkaline Phosphatase 88 U/L (39-117); Anion Gap 21 (12-20); Aspartate Amino Transferase 15 U/L (5-31); Bilirubin Total 0.5 mg/dL (0.0-1.0); Blood Urea Nitrogen 27 mg/dL (9-16); Calcium 8.8 mg/dL (8.4-10.2); Carbon Dioxide 20 mmol/L (22-29); Chloride 94 mmol/L (96-108); Creatinine Clr Calc Pharmacy 43.5; Estimated Glomerular Filt Rate 38; Glucose Random 96 mg/dL (60-115); Lipase 60 U/L (8-78); Potassium 4.5 mmol/L (3.3-5.1); Salicylate < 5.0 mg/dL (15-30); Sodium 130 mmol/L (135-145); Total Protein 7.3 g/dL (6.5-8.0)
[2020-12-20 14:57] LABS: TSH reflex Free T4 1.56 uIU/mL (0.32-4.0)
[2020-12-20 15:08] LABS: Glucose Urine UA NEG (NEG); Leukocyte Esterase Urine NEG (NEG); Nitrite Urine NEG (NEG); Urine Blood 3+ (NEG); Urine Ketones NEG (NEG); Urine Protein NEG (NEG-TRACE)
[2020-12-20 15:11] LABS: Appearance Urine CLEAR; Color Urine YELLOW
[2020-12-20 15:21] LABS: Bacteria Urine TRACE /LPF; Squamous Epithelial Cell Urine 1+ /LPF; WBC Urine 0-2 /HPF (0-4)
[2020-12-20 15:29] LABS: Amphetamine Screen Urine Not Detected (Not Detect); Barbiturates, Urine Not Detected (Not Detect); Benzodiazepines Screen Urine Not Detected (Not Detect); Cannabinoid Screen Urine POSITIVE (Not Detect); Cocaine Screen Urine Not Detected (Not Detect); Opiate Screen Urine Not Detected (Not Detect); Phencyclidine Screen Urine Not Detected (Not Detect)
[2020-12-20 16:28] VITALS: BP 128/67; PULSE 100; RESP 16; TEMP 37.1; O2SAT 98
--- NOTE | 2020-12-20 16:54 | PC.NURSE ---
Plan for case management/crisis eval per provider r/t concern from [facility] for pts compliance w/ medication, etoh abuse, and ability to safely live at home. Pt very upset when she was told her was staying. Case management at bedside to discuss placement options.
--- NOTE | 2020-12-20 17:06 | ED_ITS ---
HPI - General Adult General Chief complaint: General Medical Stated complaint: hyponatremia Time Seen by Provider: 12/20/20 13:15 Source: patient Mode of arrival: EMS Limitations: no limitations History of Present Illness HPI narrative: 65-year-old female who brought to the emergency department for evaluation change in mental status, non compliant with her bipolar medications and increased alcohol consumption. The information came from the paramedics and from the patient's PCP, Dr. Monique. The patient apparently has been drinking daily. The patient has not been taking her medications. The patient has been confused and the patient is visiting nurses felt that the patient was not safe to be at home given her change in mental status, her noncompliance with the medication. There was a concern that the patient may have delirium secondary to hyponatremia or that she may be manic secondary to untreated bipolar disorder. I was contacted by the paramedics since the patient refused transport and given the fact that the patient has dementia and there was possible delirium as the cause of her change in behavior, the patient was transported to the emergency department against her will and placed on a Section 12. Related Data Home Medications Medication Instructions Recorded Confirmed Flovent HFA 1 puff INHALATION BID 08/18/20 12/20/20 albuterol sulfate [Ventolin HFA] 2 puff INHALATION Q4-6H PRN 08/18/20 12/20/20 aspirin 81 mg PO BEDTIME 08/18/20 12/20/20 citalopram 40 mg PO QAM 08/18/20 12/20/20 ipratropium-albuterol 1 amp INHALATION QID PRN 08/18/20 12/20/20 montelukast 10 mg PO QPM 08/18/20 12/20/20 baclofen 20 mg PO DAILY PRN 10/10/20 12/20/20 clonazepam 1 mg PO BID 10/10/20 12/20/20 pravastatin 20 mg PO BEDTIME 10/10/20 12/20/20 quetiapine 50 mg PO BID 10/10/20 12/20/20 metformin 500 mg PO DAILY 11/04/20 12/20/20 Previous Rx's Medication Instructions Recorded furosemide [Lasix] 20 mg PO DAILY #30 tab 10/21/20 metoprolol succinate 50 mg PO DAILY 30 Days #30 tab 11/08/20 Allergies Allergy/AdvReac Type Severity Reaction Status Date / Time advair Allergy Unknown Unknown Uncoded 10/08/20 20:46 paxil Allergy Unknown Unknown Uncoded 10/08/20 20:46 From PAXIL AdvReac Intermediate NAUSEA & Uncoded 10/08/20 20:46 VOMITING Review of Systems Review of Systems: Yes Unobtainable due to mental status (Dementia) [facility] Past Medical History Medical History Bipolar 1 disorder COPD (chronic obstructive pulmonary disease) Coronary artery disease Diabetes Hypertension Osteoarthritis Sleep apnea Surgical History Hx of appendectomy Social History Social History Household Members: Family Housing: Apartment Alcohol intake: current Alcohol intake frequency: a few times a week Alcohol type: beer Smoking Status: Current every day smoker Tobacco Type: Cigarette Cigarettes Per Day: 4 Years Smoked: LONG TIME Smoked in Last 30 Days: Yes Use of substances other than those prescribed or required for medical reasons: Yes Substance Use Type: Marijuana Substance Use Frequency: Occasionally Advance Directives: No Advance Directives Information Provided: No service: No Current occupational status: disabled and other Physical Exam Vital Signs: Vital Signs: Last Vital Signs Temp 98.8 F 12/20/20 16:28 Pulse 100 12/20/20 16:28 Resp 16 12/20/20 16:28 BP 128/67 12/20/20 16:28 Pulse Ox 98 12/20/20 16:28 Body Mass Index 36.8 Const: General: combative (Patient initially combative but then cooperated) Orientation/consciousness: oriented to person Limitations: no limitations HENMT: Head: Yes normal to inspection, Yes normocephalic and Yes atraumatic Ears: external ears normal General nose exam: Normal external nose present Face and sinus: Yes normal facial exam Mouth: Normal oral and palatal mucosa present Throat: Yes posterior oropharynx normal Eyes: Periorbital: periorbital findings normal Eyelids: Yes eyelids normal Conjunctivae: conjunctivae normal Sclerae: sclerae normal Corneas: corneas normal Pupils: Equal, round and reactive pupils present Direct Ophthalmoscopy: normal light reflex Neck: Neck: Yes full ROM, Yes no lymphadenopathy, Yes trachea midline and Yes supple Chest: Chest palpation & inspection: normal inspection of the chest and normal palpation of entire chest wall Resp: Effort & Inspection: normal respiratory effort and able to speak in complete sentences Auscultation: clear to auscultation bilaterally Cardio: Rate: regular rate Rhythm: regular rhythm Heart sounds: S1 normal heart sound present, S2 normal heart sound present and no murmurs GI: Inspection: Yes normal to inspection Palpation (GI): Soft to palpation, nontender, no guarding, not rigid and No hepatosplenomegaly present : General: Yes no CVA tenderness Back/Spine/Pelvis: Back: no CVA tenderness Cervical Spine: normal cervical lordosis Thoracic/Lumbar Spine: thoracic and lumbar spine normal to inspection Skin: Lesions: no lesions Rashes: no rashes Wounds: no wounds Neuro: General: oriented to person Cranial nerves: Yes Equal, round and reactive pupils present Cognition (Neuro): normal cognition Motor exam (neuro): 5/5 motor strength present throughout Extrem: General: Yes normal to inspection and Yes full ROM Psych: Affect: Labile affect present and Irritable affect present Attitude: Belligerent attititude/behavior present Thought process: Confabulating thought process present Thought content: suicidality and no homicidality Course Course Course Narrative: 65-year-old female with a history of bipolar disorder, dementia, alcohol use disorder, Korsakoff's dementia who presents emergency department for evaluation of were seen dementia, noncompliance with the bipolar medication and continued alcohol use. The patient's physical examination was unremarkable except for the fact that the patient was uncooperative and belligerent. The patient's laboratory evaluation revealed mild anemia. The patient's sodium was slightly low at 130 but not low enough to explain her change in mental status. TSH was normal P CT scan of the brain and chest x-ray were normal. Urinalysis did not reveal evidence of urinary tract infection. I did speak to the patient's PCP, . He is concerned that the patient is unstable at home and requested that we get a case management consult and a c risis consult. Case management did evaluate the patient and spoke to the patient's healthcare proxy, Juanjo Monahan. He states that he cannot care for the patient at home and the patient is acting like she is in ?another world . The patient will be kept on a Section 12 placed in physician observation until we can make a disposition on this patient. The patient did receive Haldol 5 mg orally and Ativan 2 mg orally on initial presentation. I ordered another dose of Haldol 5 mg orally and Ativan 2 mg orally. Physician observation started at 1651. Patient placed in physician observation because the patient needed more time for medication to work and to see and be evaluated for the need for psych admission verses placement in a prison facility. At the time observation was started the patient's vitals were stable, patient is alert and oriented to person but slightly agitated, Neuro: nonfocal, CV RRR, Lungs clear. Medical Decision Making Lab Data Result diagrams: 12/20/20 14:05 12/20/20 14:05 Labs: Lab Results 12/20/20 12/20/20 12/20/20 Range/Units 14:05 14:05 14:05 WBC 6.6 (4.8-10.8) X10*3/uL RBC 3.53 L (4.20-5.50) X10*6/uL Hgb 10.7 L (12.0-16.0) g/dl Hct 31.7 L (37-47) % MCV 89.8 (80-98) fL MCH 30.3 (27.0-33.0) pg MCHC 33.8 (31.0-35.0) g/dl RDW 14.6 (11.0-16.0) % Plt Count 327 D (160-400) X10*3/uL MPV 9.1 L (9.4-12.3) fL Immature Gran % (Auto) 0.8 H (0.0-0.4) % Neut % (Auto) 67.8 (45-73) % Lymph % (Auto) 22.5 (20-40) % [place] % (Auto) 8.3 (2-11) % Eos % (Auto) 0.3 (0-4) % Baso % (Auto) 0.3 (0-2) % Lymph # (Auto) 1.5 (1.2-4.9) X10*3/uL [place] # (Auto) 0.6 (0.1-1.2) X10*3/uL Eos # (Auto) 0.0 (0.0-0.4) X10*3/uL Baso # (Auto) 0.0 (0.0-0.2) X10*3/uL Abs Immat Gran (auto) 0.05 H (0.00-0.03) X10*3/uL Absolute Neuts (auto) 4.5 (2.0-8.3) X10*3/uL Absolute Nucleated RBC 0.000 (0.0-0.012) X10*3/uL Nucleated RBC % (auto) 0.0 (0.0-0.2) /100WBC PT 11.6 (10.8-13.0) SEC INR 1.0 (0.9-1.1) APTT 34.4 (24.1-38.0) SEC Sodium 130 L (135-145) mmol/L Potassium 4.5 (3.3-5.1) mmol/L Chloride 94 L (96-108) mmol/L Carbon Dioxide 20 L (22-29) mmol/L Anion Gap 21 H (12-20) BUN 27 H (9-16) mg/dL Creatinine 1.37 (0.5-1.4) mg/dL Estim Creat Clear Calc 43.5 Estimated GFR 38 Random Glucose 96 D (60-115) mg/dL Lactic Acid (0.5-2.0) mmol/L Calcium 8.8 (8.4-10.2) mg/dL Total Bilirubin 0.5 (0.0-1.0) mg/dL AST 15 (5-31) U/L ALT 9 (0-31) U/L Alkaline Phosphatase 88 (39-117) U/L Troponin I High Sens (<3.5-17.0) ng/L Total Protein 7.3 (6.5-8.0) g/dL Albumin 4.0 D (3.5-5.0) g/dL Lipase 60 (8-78) U/L TSH 1.56 (0.32-4.0) uIU/mL Urine Color Urine Appearance Urine pH (5.0-8.0) Ur Specific [place] (1.005-1.025) Urine Protein (NEG-TRACE) MG/DL Urine Glucose (UA) (NEG) MG/DL Urine Ketones (NEG) MG/DL Urine Blood (NEG) Urine Nitrite (NEG) Ur Leukocyte Esterase (NEG) Urine RBC (0) /HPF Urine WBC (0-4) /HPF Ur Squamous Epith Cells /LPF Urine Bacteria /LPF Salicylates < 5.0 L (15-30) mg/dL Urine Opiates Screen (Not Detect) Ur Barbiturates Screen (Not Detect) Ur Phencyclidine Scrn (Not Detect) Ur Amphetamines Screen (Not Detect) U Benzodiazepines Scrn (Not Detect) Urine Cocaine Screen (Not Detect) U Marijuana (THC) Screen (Not Detect) Ethyl Alcohol mg/dL COVID-19 (ZAKIA) (Negative) COVID-19 Clin Com 12/20/20 12/20/20 12/20/20 Range/Units 14:05 14:05 14:05 WBC (4.8-10.8) X10*3/uL RBC (4.20-5.50) X10*6/uL Hgb (12.0-16.0) g/dl Hct (37-47) % MCV (80-98) fL MCH (27.0-33.0) pg MCHC (31.0-35.0) g/dl RDW (11.0-16.0) % Plt Count (160-400) X10*3/uL MPV (9.4-12.3) fL Immature Gran % (Auto) (0.0-0.4) % Neut % (Auto) (45-73) % Lymph % (Auto) (20-40) % [place] % (Auto) (2-11) % Eos % (Auto) (0-4) % Baso % (Auto) (0-2) % Lymph # (Auto) (1.2-4.9) X10*3/uL [place] # (Auto) (0.1-1.2) X10*3/uL Eos # (Auto) (0.0-0.4) X10*3/uL Baso # (Auto) (0.0-0.2) X10*3/uL Abs Immat Gran (auto) (0.00-0.03) X10*3/uL Absolute Neuts (auto) (2.0-8.3) X10*3/uL Absolute Nucleated RBC (0.0-0.012) X10*3/uL Nucleated RBC % (auto) (0.0-0.2) /100WBC PT (10.8-13.0) SEC INR (0.9-1.1) APTT (24.1-38.0) SEC Sodium (135-145) mmol/L Potassium (3.3-5.1) mmol/L Chloride (96-108) mmol/L Carbon Dioxide (22-29) mmol/L Anion Gap (12-20) BUN (9-16) mg/dL Creatinine (0.5-1.4) mg/dL Estim Creat Clear Calc Estimated GFR Random Glucose (60-115) mg/dL Lactic Acid 1.5 (0.5-2.0) mmol/L Calcium (8.4-10.2) mg/dL Total Bilirubin (0.0-1.0) mg/dL AST (5-31) U/L ALT (0-31) U/L Alkaline Phosphatase (39-117) U/L Troponin I High Sens 4.5 D (<3.5-17.0) ng/L Total Protein (6.5-8.0) g/dL Albumin (3.5-5.0) g/dL Lipase (8-78) U/L TSH (0.32-4.0) uIU/mL Urine Color Urine Appearance Urine pH (5.0-8.0) Ur Specific [place] (1.005-1.025) Urine Protein (NEG-TRACE) MG/DL Urine Glucose (UA) (NEG) MG/DL Urine Ketones (NEG) MG/DL Urine Blood (NEG) Urine Nitrite (NEG) Ur Leukocyte Esterase (NEG) Urine RBC (0) /HPF Urine WBC (0-4) /HPF Ur Squamous Epith Cells /LPF Urine Bacteria /LPF Salicylates (15-30) mg/dL Urine Opiates Screen (Not Detect) Ur Barbiturates Screen (Not Detect) Ur Phencyclidine Scrn (Not Detect) Ur Amphetamines Screen (Not Detect) U Benzodiazepines Scrn (Not Detect) Urine Cocaine Screen (Not Detect) U Marijuana (THC) Screen (Not Detect) Ethyl Alcohol mg/dL COVID-19 (ZAKIA) Negative (Negative) COVID-19 Clin Com See Note 12/20/20 12/20/20 12/20/20 Range/Units 14:05 14:59 14:59 WBC (4.8-10.8) X10*3/uL RBC (4.20-5.50) X10*6/uL Hgb (12.0-16.0) g/dl Hct (37-47) % MCV (80-98) fL MCH (27.0-33.0) pg MCHC (31.0-35.0) g/dl RDW (11.0-16.0) % Plt Count (160-400) X10*3/uL MPV (9.4-12.3) fL Immature Gran % (Auto) (0.0-0.4) % Neut % (Auto) (45-73) % Lymph % (Auto) (20-40) % [place] % (Auto) (2-11) % Eos % (Auto) (0-4) % Baso % (Auto) (0-2) % Lymph # (Auto) (1.2-4.9) X10*3/uL [place] # (Auto) (0.1-1.2) X10*3/uL Eos # (Auto) (0.0-0.4) X10*3/uL Baso # (Auto) (0.0-0.2) X10*3/uL Abs Immat Gran (auto) (0.00-0.03) X10*3/uL Absolute Neuts (auto) (2.0-8.3) X10*3/uL Absolute Nucleated RBC (0.0-0.012) X10*3/uL Nucleated RBC % (auto) (0.0-0.2) /100WBC PT (10.8-13.0) SEC INR (0.9-1.1) APTT (24.1-38.0) SEC Sodium (135-145) mmol/L Potassium (3.3-5.1) mmol/L Chloride (96-108) mmol/L Carbon Dioxide (22-29) mmol/L Anion Gap (12-20) BUN (9-16) mg/dL Creatinine (0.5-1.4) mg/dL Estim Creat Clear Calc Estimated GFR Random Glucose (60-115) mg/dL Lactic Acid (0.5-2.0) mmol/L Calcium (8.4-10.2) mg/dL Total Bilirubin (0.0-1.0) mg/dL AST (5-31) U/L ALT (0-31) U/L Alkaline Phosphatase (39-117) U/L Troponin I High Sens (<3.5-17.0) ng/L Total Protein (6.5-8.0) g/dL Albumin (3.5-5.0) g/dL Lipase (8-78) U/L TSH (0.32-4.0) uIU/mL Urine Color YELLOW Urine Appearance CLEAR Urine pH 6.0 (5.0-8.0) Ur Specific [place] 1.010 (1.005-1.025) Urine Protein NEG (NEG-TRACE) MG/DL Urine Glucose (UA) NEG (NEG) MG/DL Urine Ketones NEG (NEG) MG/DL Urine Blood 3+ H (NEG) Urine Nitrite NEG (NEG) Ur Leukocyte Esterase NEG (NEG) Urine RBC 15-29 H (0) /HPF Urine WBC 0-2 (0-4) /HPF Ur Squamous Epith Cells 1+ /LPF Urine Bacteria TRACE /LPF Salicylates (15-30) mg/dL Urine Opiates Screen Not Detected (Not Detect) Ur Barbiturates Screen Not Detected (Not Detect) Ur Phencyclidine Scrn Not Detected (Not Detect) Ur Amphetamines Screen Not Detected (Not Detect) U Benzodiazepines Scrn Not Detected (Not Detect) Urine Cocaine Screen Not Detected (Not Detect) U Marijuana (THC) Screen POSITIVE H (Not Detect) Ethyl Alcohol < 10 mg/dL COVID-19 (ZAKIA) (Negative) COVID-19 Clin Com Discharge Plan Discharge Prescriptions: No Action ipratropium-albuterol 0.5 mg-3 mg(2.5 mg base)/3 mL solution for nebulization 1 amp inhalation QID PRN (Reason: Shortness Of Breath Or Wheezing) RF: 0 citalopram 40 mg tablet 40 mg PO QAM RF: 0 aspirin 81 mg tablet,delayed release (DR/EC) 81 mg PO BEDTIME RF: 0 montelukast 10 mg tablet 10 mg PO QPM RF: 0 Flovent HFA 220 mcg/actuation HFA aerosol inhaler 1 puff inhalation BID RF: 0 albuterol sulfate [Ventolin HFA] 90 mcg/actuation HFA aerosol inhaler 2 puff inhalation Q4-6H PRN (Reason: Shortness Of Breath Or Wheezing) RF: 0 clonazepam 1 mg Tablet 1 mg PO BID RF: 0 baclofen 20 mg Tablet 20 mg PO DAILY PRN (Reason: Pain) RF: 0 pravastatin 20 mg Tablet 20 mg PO BEDTIME RF: 0 quetiapine 50 mg Tablet 50 mg PO BID RF: 0 furosemide [Lasix] 20 mg tablet 20 mg PO DAILY Qty: 30 RF: 0 metformin 500 mg tablet 500 mg PO DAILY RF: 0 metoprolol succinate 50 mg Tablet Extended Release 24 Hr 50 mg PO DAILY 30 Days Qty: 30 RF: 0
[2020-12-20] MEDS: HaloperidoL 5 MG TABLET 10 MG PO (18:05)
[2020-12-20] MEDS: LORazepam 1 MG TABLET 2 MG PO (18:05)
--- NOTE | 2020-12-20 19:03 | MHC.CM.ED ---
CM met with pt at request of Dr. Chaudhari. Pt known to this CM. Yoruba speaking, but can communicate well in Moldovan. Pt has daily VNA visits and per EMS, VNA called to have pt transported to ED. Pt acting erratic and drinking. Pt arrived to ED very upset and yelling. States I want to go home . I will not stay . Dr. Chaudhari explained to pt that he would section 12 her to the ED and she must stay. CM spoke with pt. Very weepy and upset. Pt. HCP is invoked and on file. Juanjo Reginald HCP/SO [phone]). CM explained to pt that she would need to stay in the hospital so we can better take care of her. Pt states she has VNA and DIRECT[employer] EM[employer]OY[employer] and is fine at home. Pt calmed eventually. CM informed her I would be calling Juanjo. Spoke with Juanjo, who states she is in another world, she is not herself and she is crazy States she needs help and he can no longer take care of her. Juanjo stated he could take her back if she gets better. CM explained to Juanjo that pt has dementia and that does not get better. CM explained the plan of care, to have pt. evaluated by crisis and that CM would reach out to him tomorrow. Gently explained that pt may need to live in a nursing facility. Juanjo understands. Will try to reach out to her children, but states they don't want her . Juanjo tells CM that pt was just discharged from [facility] about 3 weeks ago. Has daily VNA and DIRECT[employer] EM[employer]OYMENT, but does not remember what company. Also tells CM that pt has been drinking his beer, even though she knows she is not supposed to drink. Relayed conversation to Dr. Chaudhari. CM attempted to call [facility] for [facility]NA referral and med list without success. Referral in [employer] to [facility] is see if pt active with them. Pt. awaiting Crisis evaluation.CM will follow for d/c needs.
[2020-12-20 19:43] VITALS: BP 149/66; PULSE 97; RESP 20; TEMP 36.7; O2SAT 99
--- NOTE | 2020-12-20 20:52 | PC.NURSE ---
Pt frequently OOB, requires 1 assist. Pt requires frequent redirection. Pt denies HI/SI, is alert and oriented to self and place, but can be confused during conversations and requires frequent repeating.
[2020-12-21] VITALS (9 sets, daily range): BP systolic 137–172; BP diastolic 67–80; PULSE 71–106; RESP 14–20; TEMP 36.8; O2SAT 94–100
[2020-12-21] MEDS: Aspirin Enteric Coated 81 MG TABLET.DR PO ×2 (02:22→20:28)
[2020-12-21] MEDS: Pravastatin Sodium 20 MG TABLET PO ×2 (02:22→20:27)
[2020-12-21] MEDS: QUEtiapine Fumarate 50 MG TABLET PO ×2 (02:23→20:27)
[2020-12-21] MEDS: clonazePAM 1 MG TABLET PO ×2 (02:23→20:27)
--- NOTE | 2020-12-21 03:21 | PC.NURSE ---
PT RESTING, SLEEPING FOR HOURS AT A TIME. WAOKE PT FOR MEDICATIONS JUST APPROVED BY MD. PT WAS COOPERATIVE AND TOOK ALL MEDICATIONS.
--- NOTE | 2020-12-21 05:09 | PC.NURSE ---
PT INCONTINENT OF URINE, LINEN AND GOWN CHANGED.
[2020-12-21] MEDS: Baclofen 20 MG TABLET PO (05:51)
--- NOTE | 2020-12-21 07:03 | PC.NURSE ---
report taken form Heather rn. patient sleeping, woke easily to voice. patient calm and pleasant with RN. waiting [facility] marin. will speak with case management later today regarding plan for patient.
[2020-12-21 07:22] LABS: Glucose, Whole Blood 112 mg/dL (60-115)
[2020-12-21] MEDS: Metoprolol Succinate ER 50 MG TAB.ER.24H PO (08:52)
[2020-12-21] MEDS: metFORMIN HCl 500 MG TABLET PO (08:52)
[2020-12-21] MEDS: Furosemide 20 MG TABLET PO (08:53)
[2020-12-21] MEDS: Albuterol/Iprat 2.5/0.5MG 3 ML AMPUL.NEB INHALE ×2 (08:57→17:03)
--- NOTE | 2020-12-21 13:14 | MHC.CARE ---
Spoke with Tabatha MARQUEZ clinician whom evaluated patient. The patient will remain in the [facility] as a [facility], bed search will be completed by [facility].
--- NOTE | 2020-12-21 13:27 | MHC.CM.ED ---
i did speak zheng rausch from [facility], she did the eval on patient this a.m. she feels patient is psych. unstable and disregulated at this time and would benefit from an inpt. psych placement before going to [facility]. a sect 12 is on pt's chart and [facility] is conducting a [facility] bed search. if patient can get into [facility], samantha/hcp would like her to go to [facility]. a ref. to [facility] has been made. cm to cont. to follow.
--- NOTE | 2020-12-21 17:04 | PC.NURSE ---
2x call placed to rt. rt unavailable for neb. pt placed on 2lpm due to sob, until neb pulled. pt titrated back to room air during neb administration. PRN abuterol pulled and put at bedside.
--- NOTE | 2020-12-21 17:11 | PC.NURSE ---
rt at bedside to preform teaching on pro air pt had no questions.
[2020-12-21] MEDS: Acetaminophen 325 MG TABLET 650 MG PO (19:43)
[2020-12-21] MEDS: Fluticasone Propionate 250 MCG BLST.W.DEV 1 PUFF INHALE (20:26)
[2020-12-21] MEDS: Montelukast Sodium 10 MG TABLET PO (20:27)
--- NOTE | 2020-12-22 00:30 | PC.NURSE ---
uneventful shift for patient. patient ambualting inroom without difficulty. patient remained in behavioral control. monitoring for changing needs.
--- NOTE | 2020-12-22 01:08 | PC.NURSE ---
call placed to [facility]
--- NOTE | 2020-12-22 04:53 | PC.NURSE ---
REPORT FROM LEDY KIRK AT 03:00, PT SLEEPING.
[2020-12-22 05:12] VITALS: PULSE 82; RESP 16; O2SAT 95
[2020-12-22 06:40] VITALS: BP 147/70; PULSE 75; RESP 16; TEMP 36.6; O2SAT 95
--- NOTE | 2020-12-22 06:50 | PC.NURSE ---
received report from tano rowe
--- NOTE | 2020-12-22 07:07 | PC.NURSE ---
CHECKED ON PT TO MAKE SURE SHE HAD DRY LINEN. PT CONFIRMED THAT SHE DIDN'T NEED TO BE CHANGED.
--- NOTE | 2020-12-22 07:14 | PC.NURSE ---
PT SET UP WITH HER BREAKFAST CHERRI, REPORTS HAVING A GOOD NIGHT, NO COMPLAINTS PER PT AT THIS TIME
[2020-12-22 08:28] VITALS: BP 141/73; PULSE 92; RESP 18; TEMP 36.7; O2SAT 99
[2020-12-22 08:29] VITALS: BP 141/73; PULSE 92
[2020-12-22] MEDS: Metoprolol Succinate ER 50 MG TAB.ER.24H PO (08:29)
[2020-12-22] MEDS: Escitalopram Oxalate 20 MG TABLET PO (08:29)
[2020-12-22] MEDS: metFORMIN HCl 500 MG TABLET PO (08:29)
[2020-12-22] MEDS: Furosemide 20 MG TABLET PO (08:29)
[2020-12-22] MEDS: QUEtiapine Fumarate 50 MG TABLET PO ×2 (08:30→23:44)
[2020-12-22] MEDS: Fluticasone Propionate 250 MCG BLST.W.DEV 1 PUFF INHALE (08:30)
[2020-12-22] MEDS: clonazePAM 1 MG TABLET PO ×2 (08:30→23:44)
--- NOTE | 2020-12-22 12:17 | PC.NURSE ---
PT SLEEPING IN NO APPARENT DISTRESS AT THIS TIME, RESPIRATIONS EVEN AND UNLABORED
[2020-12-22 18:15] VITALS: BP 135/69; PULSE 79; RESP 16; TEMP 36.1; O2SAT 94
--- NOTE | 2020-12-22 18:29 | P.CNPS_ITS ---
History of Present Illness Date of Service: 12/22/20 Chief Complaint: hyponatremia Reason for Consult: 65 yo female, to ER 12/20 via ambulance for MSE changes, medication non-compliance for bipolar disorder, confusion, hyponatremia, dementia and r/o delirium and alcohol/marijuana use. Pt has met with [facility] and they are completing a geriatric psychiatry bed search for admission vs pt going to rehab level of care. 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 Consult requested to re-start psychotropic medications. Requesting physician: Mavis Altamirano Discussed with referring provider: Yes Sources of Information: patient interviewed and chart reviewed HPI Narrative: Per record pt was recently discharged from [facility] @ 3 weeks ago. Per HCP report to care mgt team she has had mental status changes, medication non compliance, abuse of alcohol and marijuana, confusion and possibly is manic or in delirium from current use, along with pre-existing dementia. TSH, UA, CAT, CXR are WNL. RBC 3.53, HGB 10.7, HCT 31.7 Na 130, BUN 27 Medical Evaluation Reviewed: Yes Review of Systems Reports behavioral changes and Reports confusion Psychiatric: Reports behavioral changes, Reports confusion, Reports difficulty concentrating and Reports irritability [facility] Medical History (Updated 12/22/20 @ 19:01 by Brook Hernandez APRN) Bipolar 1 disorder Bipolar I disorder COPD (chronic obstructive pulmonary disease) Coronary artery disease Diabetes Hypertension Osteoarthritis Sleep apnea Surgical History Hx of appendectomy Diagnostics Vital Signs (24Hr): Vital Signs - 24 hr 12/21/20 21:55 12/22/20 05:12 12/22/20 06:40 Temperature 98.2 F 97.9 F Pulse Rate 83 82 75 Respiratory Rate 14 16 16 Blood Pressure 146/67 H 147/70 H Pulse Oximetry 95 95 95 12/22/20 08:28 12/22/20 08:29 12/22/20 18:15 Temperature 98.1 F 96.9 F Pulse Rate 92 92 79 Respiratory Rate 18 16 Blood Pressure 141/73 H 141/73 H 135/69 Pulse Oximetry 99 94 Body Mass Index 36.8 Labs Results: 12/20/20 14:05 12/20/20 14:05 Labs: Laboratory Results - last 48 hr 12/21/20 07:19 POC Glucose 112 Imaging Radiology Impressions: ITS Impressions Chest X-Ray 12/20/20 13:16 IMPRESSION: Unremarkable examination. Head CT 12/20/20 13:16 IMPRESSION: No acute intracranial abnormality. Mental Status Exam Mental Status Exam Patient Appearance: Disheveled Patient Orientation: Person Level of Consciousness: Sedated Patient Behavior: Talkative, Cooperative, Asleep, Confused and Good Eye Contact Mood Description: Calm Affect Description: Calm Patient Cognition Impaired: Yes Ability to Follow Directions: Poor Speech Pattern: Difficulty Finding Words, Spontaneous Speech and Soft-Spoken Memory Description: Remote Impaired, Immediate Impaired, Episodic Impaired and Recent Impaired Hallucinations: None (pt does not appear to be responding to internal stimuli) Delusions: Not Present Thought Process: Disoriented and Confusion Thought Content: positive for Disoriented Judgement: Poor Medications Medications Current Medications Generic Name Dose Route Start Last Admin Trade Name Alexandrea PRN Reason Stop Dose Admin Albuterol Sulfate 2 puff 12/21/20 01:42 Albuterol Sulfate 90 Mcg 8 Gm Inhaler INHALE Q4H PRN Shortness Of Breath Or Wheezing Albuterol/Ipratropium 3 ml 12/21/20 01:42 12/21/20 17:03 Albuterol/Iprat 2.5/0.5mg 3 Ml Ampul.Neb INHALE 3 ml QID PRN Administration Shortness Of Breath Or Wheezing Aspirin 81 mg 12/21/20 01:45 12/21/20 20:28 Aspirin Enteric Coated 81 Mg Tablet. PO 81 mg BEDTIME YUMIKO Administration Baclofen 20 mg 12/21/20 01:42 12/21/20 05:51 Baclofen 20 Mg Tablet PO 20 mg DAILY PRN Administration Pain Clonazepam 1 mg 12/21/20 01:45 12/22/20 08:30 Clonazepam 1 Mg Tablet PO 1 mg BID YUMIKO Administration Escitalopram Oxalate 20 mg 12/22/20 09:00 12/22/20 08:29 Escitalopram Oxalate 20 Mg Tablet PO 20 mg DAILY YUMIKO Administration Fluticasone Propionate 1 puff 12/21/20 08:00 12/22/20 08:30 Fluticasone Propionate 250 Mcg Blst.W.Dev INHALE 1 puff RBID YUMIKO Administration Furosemide 20 mg 12/21/20 09:00 12/22/20 08:29 Furosemide 20 Mg Tablet PO 20 mg DAILY YUMIKO Administration Protocol Metformin HCl 500 mg 12/21/20 09:00 12/22/20 08:29 Metformin Hcl 500 Mg Tablet PO 500 mg DAILY YUMIKO Administration Metoprolol Succinate 50 mg 12/21/20 09:00 12/22/20 08:29 Metoprolol Succinate Er 50 Mg Tab.Er.24h PO 50 mg DAILY YUMIKO Administration Protocol Montelukast Sodium 10 mg 12/21/20 21:00 12/21/20 20:27 Montelukast Sodium 10 Mg Tablet PO 10 mg BEDTIME YUMIKO Administration Pharmacy Consult 1 each 12/20/20 16:38 Consult Rx Perform Med Rec MISCELLANE ONCE PRN Consult order Pravastatin Sodium 20 mg 12/21/20 01:45 12/21/20 20:27 Pravastatin Sodium 20 Mg Tablet PO 20 mg BEDTIME YUMIKO Administration Quetiapine Fumarate 50 mg 12/21/20 01:45 12/22/20 08:30 Quetiapine Fumarate 50 Mg Tablet PO 50 mg BID YUMIKO Administration Allergies Allergies Allergy/AdvReac Type Severity Reaction Status Date / Time advair Allergy Unknown Unknown Uncoded 10/08/20 20:46 paxil Allergy Unknown Unknown Uncoded 10/08/20 20:46 From PAXIL AdvReac Intermediate NAUSEA & Uncoded 10/08/20 20:46 VOMITING Assessment & Plan Assessment & Plan (1) Alcohol use disorder: Status: Acute Recommendations: -Suggest labs- B12, Folate, Mg, Ammonia -Suggest Thiamine 100 mg daily Folic Acid 1 mg daily MVI 1 tab daily Decrease Lexapro to 5 mg daily as both Lexapro and Celexa can contribute to hyponatremia Decrease Klonopin to 0.5 mg bid as long half-life may accumulate and contribute to unclear MSE and dementia sx. Discontinue Seroquel Risperdal 0.25 mg bid and bid prn agitation (2) Bipolar I disorder: Status: Acute Code(s): F31.9 - Bipolar disorder, unspecified Greater than 50% of the session was spent on counseling and/or coordination of care
--- NOTE | 2020-12-22 18:29 | PC.NURSE ---
pt sleeping in NAD. VSS. Bed search continues
--- NOTE | 2020-12-22 21:58 | PC.NURSE ---
pt checked on, pt did not want her dinner, or any other option of food. pt does not need to use commode.
--- NOTE | 2020-12-22 22:40 | PC.NURSE ---
pt transferred to hospital bed for comfort, pt able to stand and pivot. pt given a piece of cheese pizza, cut up for her. pt reports that her dentures are at home. will try and call family to bring them.
[2020-12-22] MEDS: Aspirin Enteric Coated 81 MG TABLET.DR PO (23:44)
[2020-12-22] MEDS: Pravastatin Sodium 20 MG TABLET PO (23:44)
[2020-12-22] MEDS: Montelukast Sodium 10 MG TABLET PO (23:44)
[2020-12-23] VITALS (7 sets, daily range): BP systolic 123–137; BP diastolic 59–71; PULSE 71–91; RESP 15–20; TEMP 36.7; O2SAT 95–98
[2020-12-23] MEDS: Albuterol Sulfate 90 MCG 8 GM INHALER 2 PUFF INHALE (06:41)
[2020-12-23] MEDS: Escitalopram Oxalate 20 MG TABLET PO (07:14)
[2020-12-23] MEDS: Furosemide 20 MG TABLET PO (07:15)
[2020-12-23] MEDS: metFORMIN HCl 500 MG TABLET PO (07:15)
[2020-12-23] MEDS: Metoprolol Succinate ER 50 MG TAB.ER.24H PO (07:15)
[2020-12-23] MEDS: Baclofen 20 MG TABLET PO (07:15)
[2020-12-23] MEDS: QUEtiapine Fumarate 50 MG TABLET PO ×2 (07:15→20:34)
[2020-12-23] MEDS: Fluticasone Propionate 250 MCG BLST.W.DEV 1 PUFF INHALE (07:16)
[2020-12-23] MEDS: clonazePAM 1 MG TABLET PO ×2 (07:16→20:34)
[2020-12-23] MEDS: Lidocaine 4 % Patch ADH..PATCH 1 PATCH TRANSDERMA (08:25)
[2020-12-23] MEDS: Acetaminophen 325 MG TABLET 975 MG PO (08:25)
--- NOTE | 2020-12-23 09:03 | MHC.CM.ED ---
Patient remains in ER. She is currently a inpatient psych bedsearch. Case Management will hold off at this time. Continue to monitor for d/c needs.
[2020-12-23 09:08] LABS: Anion Gap 18 (12-20); Blood Urea Nitrogen 31 mg/dL (9-16); Calcium 9.2 mg/dL (8.4-10.2); Carbon Dioxide 22 mmol/L (22-29); Chloride 97 mmol/L (96-108); Creatinine Clr Calc Pharmacy 34.7; Estimated Glomerular Filt Rate 30; Glucose Random 222 mg/dL (60-115); Potassium 4.8 mmol/L (3.3-5.1); Sodium 132 mmol/L (135-145)
--- NOTE | 2020-12-23 09:44 | PC.NURSE ---
Care of pt assumed by T/W. She is alert, rr even, speaks in full sentences. Upon my initial assessment pt is teary, stating she is uncomfortable with all-over body pain, greater in right shoulder. Pt medicated with AM meds, and given PRN baclofen. ALICIA Bailey also assessed pt and provided additional orders. Pt medicated per emar. She ate 100% of breakfast this am. She remains an inpt psych bed search.
--- NOTE | 2020-12-23 10:17 | PC.NURSE ---
T/W called [facility] to inquire status of bed search. Spoke with Jeni, who states the search remains active at this time. Will continue to monitor
[2020-12-23] MEDS: Aspirin Enteric Coated 81 MG TABLET.DR PO (20:33)
[2020-12-23] MEDS: Pravastatin Sodium 20 MG TABLET PO (20:34)
[2020-12-24 06:00] VITALS: RESP 18
[2020-12-24 08:22] VITALS: BP 134/67; PULSE 77
[2020-12-24] MEDS: Metoprolol Succinate ER 50 MG TAB.ER.24H PO (08:22)
[2020-12-24] MEDS: clonazePAM 1 MG TABLET PO ×2 (08:22→21:49)
[2020-12-24] MEDS: Furosemide 20 MG TABLET PO (08:23)
[2020-12-24] MEDS: Escitalopram Oxalate 20 MG TABLET PO (08:23)
[2020-12-24] MEDS: QUEtiapine Fumarate 50 MG TABLET PO ×2 (08:23→21:49)
[2020-12-24] MEDS: metFORMIN HCl 500 MG TABLET PO (08:23)
[2020-12-24] MEDS: Fluticasone Propionate 250 MCG BLST.W.DEV 1 PUFF INHALE (08:24)
[2020-12-24] MEDS: Baclofen 20 MG TABLET PO (13:40)
--- NOTE | 2020-12-24 13:44 | PC.NURSE ---
pt tearful stating her right shoulder pain is 9/10, pt was asking for the patch. she was medicated for pain and lidocaine patch in place
[2020-12-24] MEDS: Lidocaine 4 % Patch ADH..PATCH 1 PATCH TRANSDERMA (13:55)
[2020-12-24 14:00] VITALS: BP 142/57; PULSE 108
[2020-12-24] MEDS: Montelukast Sodium 10 MG TABLET PO (21:48)
[2020-12-24] MEDS: Aspirin Enteric Coated 81 MG TABLET.DR PO (21:49)
[2020-12-24] MEDS: Pravastatin Sodium 20 MG TABLET PO (21:49)
[2020-12-24 21:53] VITALS: BP 134/77; PULSE 68; RESP 16; O2SAT 100
[2020-12-25 06:00] VITALS: BP 123/64; PULSE 73; RESP 18; O2SAT 100
[2020-12-25 09:16] VITALS: PULSE 87
[2020-12-25] MEDS: Metoprolol Succinate ER 50 MG TAB.ER.24H PO (09:16)
[2020-12-25] MEDS: Furosemide 20 MG TABLET PO (09:16)
[2020-12-25] MEDS: metFORMIN HCl 500 MG TABLET PO (09:17)
[2020-12-25] MEDS: clonazePAM 1 MG TABLET PO ×2 (09:17→20:15)
[2020-12-25] MEDS: QUEtiapine Fumarate 50 MG TABLET PO ×2 (09:18→20:15)
[2020-12-25] MEDS: Escitalopram Oxalate 20 MG TABLET PO (09:18)
--- NOTE | 2020-12-25 20:11 | MHC.CM.ED ---
Met with Mavis VARGAS who states that pt has been cleared by Nelly at [facility] and does not need [facility] psych placement at this time. Requested copy of evaluation. Waiting for fax. JUANITA Juanjo ([phone]) would like pt to go to [facility]. Referral had been placed and they are willing to accept patient. Clinicals sent. CM will follow.
[2020-12-25] MEDS: Pravastatin Sodium 20 MG TABLET PO (20:15)
[2020-12-25] MEDS: Fluticasone Propionate 250 MCG BLST.W.DEV 1 PUFF INHALE (20:15)
[2020-12-25] MEDS: Aspirin Enteric Coated 81 MG TABLET.DR PO (20:15)
[2020-12-25] MEDS: Montelukast Sodium 10 MG TABLET PO (20:15)
[2020-12-25] MEDS: LORazepam 1 MG TABLET PO (21:11)
--- NOTE | 2020-12-25 21:35 | MHC.CM.ED ---
CM called and spoke with Juanjo Montelongo HCP/SO ([phone]) regarding [facility] re-evaluation that pt cleared for inpatient psych and cleared for SNF. HCP has been invoked since 08/29/2020. Juanjo requests pt go to [facility] for few weeks to a month. Spoke with Juanjo about pt possibly living at correction in future. Juanjo adamant that pt come back to live with him eventually. Explained that behaviors may not change as pt has dementia, but Juanjo is very positive in his desire for pt to return home after STR. Waiting for re-evaluation assessment from [facility]. [employer] updated. CM to follow for d/c needs.
[2020-12-26 04:02] VITALS: BP 134/80; PULSE 88; RESP 18; TEMP 36.6; O2SAT 96
[2020-12-26 06:36] VITALS: BP 154/58; PULSE 69; RESP 18; TEMP 36.9; O2SAT 96
[2020-12-26 09:15] VITALS: BP 154/58; PULSE 69
[2020-12-26] MEDS: Escitalopram Oxalate 20 MG TABLET PO (09:15)
[2020-12-26] MEDS: Fluticasone Propionate 250 MCG BLST.W.DEV 1 PUFF INHALE ×2 (09:15→21:43)
[2020-12-26] MEDS: Furosemide 20 MG TABLET PO (09:15)
[2020-12-26] MEDS: Metoprolol Succinate ER 50 MG TAB.ER.24H PO (09:15)
[2020-12-26] MEDS: QUEtiapine Fumarate 50 MG TABLET PO ×2 (09:15→21:43)
[2020-12-26] MEDS: metFORMIN HCl 500 MG TABLET PO (09:15)
--- NOTE | 2020-12-26 10:39 | MHC.CM.ED ---
Patient remains in ER. [facility] is not able to accept patient. Copy of updated [facility] eval obtained. Referral is being broadcasted in [employer]. Continue to monitor for d/c needs.
--- NOTE | 2020-12-26 12:45 | MHC.CM.ED ---
Patient was originally a inpatient [facility] psych bed search. Since patient has been cleared by [facility], a PAS/[facility] exemption letter will be needed. T/W submitted PASRR screen. Continue to monitor for d/c needs.
--- NOTE | 2020-12-26 13:32 | MHC.CM.ED ---
Received telephone call from Emily of [facility]. She can be reached at [phone]. She helps with patient's care. T/W explained patient was not accepted at [facility] because of previous behavior and that referral was broadcasted. No facility has accepted at this time. Emily verbalized understanding. T/Jazlyn also explained Nasima KIRK has been trying to get in touch with Juanjo, so he can bring clean clothes. Emily verbalized understanding and will reach out to Juanjo. Continue to monitor for d/c needs.
--- NOTE | 2020-12-26 14:54 | PC.NURSE ---
pt take to pod for shower
--- NOTE | 2020-12-26 15:57 | MHC.CM.ED ---
Juanjo, HCP, at pt bedside and requesting to speak with case management. Juanjo requests that pt be d/c home tomorrow at 12 noon. Juanjo states he has to get things ready for pt to come home and is not ready to safely care for her today. Pt crying. Wants to go home. Juanjo tells pt that she cannot drink any alcohol and she must take her medications. Will book an amublance for tomorrow at 12 noon. CM to follow for d/c needs.
--- NOTE | 2020-12-26 16:42 | MHC.CM.ED ---
BLS booked for 12 noon tomorrow. Med Nec is on chart. CM to follow for d/c needs.
[2020-12-26 19:20] VITALS: BP 124/71; PULSE 78; RESP 18; TEMP 36.9; O2SAT 98
[2020-12-26] MEDS: Aspirin Enteric Coated 81 MG TABLET.DR PO (21:43)
[2020-12-26] MEDS: Pravastatin Sodium 20 MG TABLET PO (21:43)
[2020-12-26] MEDS: Montelukast Sodium 10 MG TABLET PO (21:43)
[2020-12-26 22:00] VITALS: RESP 16
--- NOTE | 2020-12-27 03:32 | PC.NURSE ---
pt had uneventful night on this shift. Commode emptyed by this rn at 1600. pt consumed 100% of dinner and given bed time snack. plan to d/c in am. continuing to juan.
[2020-12-27 07:46] VITALS: RESP 14
[2020-12-27 08:09] VITALS: BP 146/72; PULSE 71; RESP 16; TEMP 36.7; O2SAT 100
[2020-12-27] MEDS: Escitalopram Oxalate 20 MG TABLET PO (08:10)
[2020-12-27] MEDS: Furosemide 20 MG TABLET PO (08:10)
[2020-12-27] MEDS: metFORMIN HCl 500 MG TABLET PO (08:10)
[2020-12-27] MEDS: QUEtiapine Fumarate 50 MG TABLET PO (08:11)
[2020-12-27] MEDS: Metoprolol Succinate ER 50 MG TAB.ER.24H PO (08:11)
[2020-12-27] MEDS: Acetaminophen 325 MG TABLET 975 MG PO (08:14)
[2020-12-27 08:15] LABS: Glucose, Whole Blood 117 mg/dL (60-115)
--- NOTE | 2020-12-27 10:30 | MHC.CM.ED ---
i did call samantha , pt's significant other and janitor caretaker. i confirmed that he was planning to have patient return home today , leaving [facility] at 12 noon. he also told me that patient has acetone button paster/vna svcs daily, he did not remember the name of the agency, but he gave me the name of the employment case manager/ coordinator for these svcs - emily overton , ph: [phone]. a call was made to Emily and message left to let her know pt would be returning home today. transportation was set up yesterday by cassidy. PA and rn are aware of this dc plan. cm to cont. to follow.
--- NOTE | 2020-12-27 10:42 | MHC.CM.ED ---
i did call samantha , pt's significant other and live in caregiver. i confirmed that he was planning to have patient return home today , leaving [facility] at 12 noon. he also told me that patient has vertical punch operator/vna svcs daily, he did not remember the name of the agency, but he gave me the name of the case management coordinator/ coordinator for these svcs - emily overton , ph: [phone]. a call was made to Emily , she told me patient has vna svcs daily though [employer] [facility], i did today make a ref. to this agency. pt also has 10 vertical punch operator hrs per week, 2 per day - m-f through [facility]. transportation was set up yesterday by cassidy. PA and rn are aware of this dc plan. cm to cont. to follow.
== END 2020-12-27 13:00 | disposition home or self-care (01) ==
PROVIDERS: Physician Assistant; Emergency Provider Emergency Medicine Emergency Medical Services; PCP Internal Medicine Geriatric Medicine
DX: F31.9 Bipolar disorder, unspecified (principal); M25.511 Pain in right shoulder; E87.1 Hypo-osmolality and hyponatremia; Z91.14 Patient's other noncompliance with medication regimen; F03.90 Unspecified dementia, unspecified severity, without behavioral disturbance, psychotic disturbance, mood disturbance, and anxiety; F19.10 Other psychoactive substance abuse, uncomplicated; M54.2 Cervicalgia; R06.02 Shortness of breath; R51.9 Headache, unspecified; I10 Essential (primary) hypertension; I25.10 Atherosclerotic heart disease of native coronary artery without angina pectoris; E11.9 Type 2 diabetes mellitus without complications; F17.210 Nicotine dependence, cigarettes, uncomplicated; F12.90 Cannabis use, unspecified, uncomplicated; Z71.6 Tobacco abuse counseling; Z20.822 Contact with and (suspected) exposure to COVID-19; Z79.899 Other long term (current) drug therapy; Z79.82 Long term (current) use of aspirin; Z79.84 Long term (current) use of oral hypoglycemic drugs
CPT/HCPCS: 36415; 70450; 71045; 80048; 80053; 80179; 80307; 80320; 81001; 82947; 83605; 83690; 84443; 84484; 85025; 85610; 85730; 87040; 87635; 93005; 94640; 96374; 97162; 99284; 99285

== ENCOUNTER 2021-02-04 12:24 | Inpatient (IN) | payer MEDICARE, MEDICAID, SELFPAY ==
[2021-02-04] VITALS (7 sets, daily range): BP systolic 117–169; BP diastolic 68–83; PULSE 72–90; RESP 14–18; TEMP 36–37.2; O2SAT 95–100; BMI 34.2
--- NOTE | 2021-02-04 12:39 | ED_ITS ---
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 Patient tells me she had routine lab work done yesterday as routine blood work and she was called today to be notified that her sodium was low. Per EMS her sodium was 121. The patient denies any symptoms. She tells me she feels well. She does drink alcohol 4-5 beers a day and her last drink was this morning. Related Data Home Medications Medication Instructions Recorded Confirmed Flovent HFA 1 puff INHALATION BID 08/18/20 02/04/21 albuterol sulfate [Ventolin HFA] 2 puff INHALATION Q4-6H PRN 08/18/20 02/04/21 aspirin 81 mg PO BEDTIME 08/18/20 02/04/21 citalopram 40 mg PO QAM 08/18/20 02/04/21 ipratropium-albuterol 1 amp INHALATION QID PRN 08/18/20 02/04/21 montelukast 10 mg PO QPM 08/18/20 02/04/21 baclofen 20 mg PO DAILY PRN 10/10/20 02/04/21 clonazepam 1 mg PO BID 10/10/20 02/04/21 pravastatin 20 mg PO BEDTIME 10/10/20 02/04/21 quetiapine 50 mg PO BID 10/10/20 02/04/21 metformin 500 mg PO DAILY 11/04/20 02/04/21 acetaminophen 1 tab PO BID PRN 02/04/21 02/04/21 folic acid 1 tab PO QAM 02/04/21 02/04/21 sennosides [senna] 1 tab PO BID PRN 02/04/21 02/04/21 thiamine HCl (vitamin B1) 1 tab PO QAM 02/04/21 02/04/21 Previous Rx's Medication Instructions Recorded furosemide [Lasix] 20 mg PO DAILY #30 tab 10/21/20 metoprolol succinate 50 mg PO DAILY 30 Days #30 tab 11/08/20 Allergies Allergy/AdvReac Type Severity Reaction Status Date / Time advair Allergy Unknown Unknown Uncoded 10/08/20 20:46 paxil Allergy Unknown Unknown Uncoded 10/08/20 20:46 From PAXIL AdvReac Intermediate NAUSEA & Uncoded 10/08/20 20:46 VOMITING Review of Systems Review of Systems: Yes all other systems are reviewed and are negative Constitutional: Constitutional: Reports no additional constitutional complaint s, Denies body ache(s), Denies chills, Denies fever(s), Denies headache(s) and Denies weakness Eyes: Eyes: Reports no additional eye complaints and Denies change in vision ENT: Reports system reviewed and no additional complaints, except as documented, Denies dizziness, Denies headache(s), Denies nasal congestion, Denies nasal discharge and Denies neck pain Cardiovascular: Cardiovascular: Reports no additional cardiovascular complaints, Denies chest pain, Denies leg edema and Denies dyspnea Respiratory: Respiratory: Reports no additional respiratory complaints, Denies cough and Denies dyspnea Gastrointestinal: Gastrointestinal: Reports no additional gastrointestinal complaints, Denies abdominal pain, Denies diarrhea, Denies nausea and Denies vo miting Genitourinary: Genitourinary: Reports no additional female genitourinary complaints and Denies urinary incontinence Musculoskeletal: Musculoskeletal: Reports no additional musculoskeletal complaints, Denies back pain, Denies arthralgias, Denies joint swelling, Denies neck pain, Denies numbness and Denies tingling Integumentary/Breasts: Skin/Breast: Reports system reviewed and no additional complaints, except as docu and Denies rash Neurologic: Reports system reviewed and no additional complaints, except as d ocumented, Denies Abnormal speech present, Denies dizziness, Denies headache(s), Denies numbness, Denies tingling and Denies weakness [facility] Past Medical History Attestation statement: The following information was validated with the patient. Source: old records reviewed and nursing notes reviewed Medical History Bipolar 1 disorder Bipolar I disorder COPD (chronic obstructive pulmonary disease) Coronary artery disease Diabetes Hypertension Osteoarthritis Sleep apnea Surgical History Hx of appendectomy Social History Social History Household Members: Family Housing: Apartment Alcohol intake: current Alcohol intake frequency: a few times a week Alcohol type: beer Smoking Status: Current every day smoker Tobacco Type: Cigarette Cigarettes Per Day: 4 Years Smoked: LONG TIME Substance Use Type: Marijuana Advance Directives: No Advance Directives Information Provided: No service: No Current occupational status: disabled and other Physical Exam Vital Signs: Vital Signs: Last Vital Signs Temp 98.3 F 02/04/21 18:02 Pulse 80 02/04/21 18:02 Resp 16 02/04/21 18:02 BP 131/70 02/04/21 18:02 Pulse Ox 95 02/04/21 18:02 Body Mass Index 34.2 Const: General: cooperative, healthy appearing, comfortable and no acute distress Orientation/consciousness: patient oriented x3 Limitations: no limitations HENMT: Head: Yes normal to inspection Ears: hearing grossly normal bilaterally General nose exam: Normal external nose present Face and sinus: Yes normal facial exam Mouth: Normal oral and palatal mucosa present Throat: Yes posterior oropharynx normal Eyes: General: appearance normal, both eyes and all related structures Pupils: Equal, round and reactive pupils present Neck: Neck: Yes normal visual inspection Chest: Chest palpation & inspection: normal inspection of the chest Resp: Effort & Inspection: normal respiratory effort Auscultation: clear to auscultation bilaterally Cardio: Rate: regular rate Rhythm: regular rhythm Peripheral pulses: Peripheral pulses 2+ throughout GI: Inspection: Yes normal to inspection Palpation (GI): Soft to palpation and nontender Auscultation: normal bowel sounds Back/Spine/Pelvis: Thoracic/Lumbar Spine: thoracic and lumbar spine normal to inspection Skin: General skin exam: no rashes or lesions noted Neuro: General: patient oriented x3, no focal motor deficits and normal sensation to monofilament Cranial nerves: Yes Equal, round and reactive pupils present, Yes Normal facial strength present and Yes Midline tongue present Cognition (Neuro): normal cognition Speech: No Abnormal speech present Gait exam (Neuro): Normal gait present Motor exam (neuro): 5/5 motor strength present throughout Sensory Exam: Normal double simultaneous stimulation for sensation Extrem: Other: Trace bilateral pedal edema with no tenderness or warmth General: Yes normal to inspection and Yes no calf tenderness Course Course Course Narrative: 65-year-old female here with hyponatremia. Patient had routine labs done yesterday which showed a sodium of 121 per EMS. These are not yet ready for review here at [place]. The the patient denies any symptoms. She is on Lasix, Celexa, uses alcohol daily which may be causing a multifactorial hyponatremia. History of same with admission in October seen by Nephrology. Will check labs, EKG, UA. 1500-NA 121. Will need discussion with nephrology and admission. 1520-Discussed patient with Dr Adams from nephrology. Likely multifactorial. Celexa mixed with alcohol in addition to the Lasix. Recommended holding Lasix. Giving normal saline at 50 ml/hr and monitoring NA levels. add on urine studies, serum osmlolality. Call out to Medicine to discuss for admission. 1600-Discussed with Dr Whitman who accepted admission. Medical Decision Making Medical Records Medical records reviewed: Yes I reviewed the patient's medical records. Lab Data Lab results reviewed: Yes I reviewed the patient's lab results. Result diagrams: 02/04/21 13:42 02/04/21 13:42 Labs: Lab Results 02/04/21 02/04/21 02/04/21 Range/Units 13:42 13:42 13:42 WBC 8.9 (4.8-10.8) X10*3/uL RBC 3.94 L (4.20-5.50) X10*6/uL Hgb 12.1 (12.0-16.0) g/dl Hct 33.9 L (37-47) % MCV 86.0 (80-98) fL MCH 30.7 (27.0-33.0) pg MCHC 35.7 H (31.0-35.0) g/dl RDW 13.5 (11.0-16.0) % Plt Count 306 (160-400) X10*3/uL MPV 8.2 L (9.4-12.3) fL Immature Gran % (Auto) 1.8 H (0.0-0.4) % Neut % (Auto) 78.2 H (45-73) % Lymph % (Auto) 10.0 L (20-40) % Trimble % (Auto) 9.7 (2-11) % Eos % (Auto) 0.1 (0-4) % Baso % (Auto) 0.2 (0-2) % Lymph # (Auto) 0.9 L (1.2-4.9) X10*3/uL Trimble # (Auto) 0.9 (0.1-1.2) X10*3/uL Eos # (Auto) 0.0 (0.0-0.4) X10*3/uL Baso # (Auto) 0.0 (0.0-0.2) X10*3/uL Abs Immat Gran (auto) 0.16 H (0.00-0.03) X10*3/uL Absolute Neuts (auto) 6.9 (2.0-8.3) X10*3/uL Absolute Nucleated RBC 0.000 (0.0-0.012) X10*3/uL Nucleated RBC % (auto) 0.0 (0.0-0.2) /100WBC Hold Blue Top SEE NOTE Sodium 121 L (135-145) mmol/L Potassium 4.1 (3.3-5.1) mmol/L Chloride 82 L (96-108) mmol/L Carbon Dioxide 25 (22-29) mmol/L Anion Gap 18 (12-20) BUN 22 H (9-16) mg/dL Creatinine 1.30 (0.5-1.4) mg/dL Estim Creat Clear Calc 44.0 Estimated GFR 41 Random Glucose 87 D (60-115) mg/dL Osmolality (281-305) mosm/kg Calcium 9.0 (8.4-10.2) mg/dL Magnesium 2.3 (1.6-2.6) mg/dL Total Bilirubin 0.4 (0.0-1.0) mg/dL Direct Bilirubin 0.3 (0.0-0.5) mg/dL AST 16 (5-31) U/L ALT 16 (0-31) U/L Alkaline Phosphatase 85 (39-117) U/L Total Protein 6.6 (6.5-8.0) g/dL Albumin 3.6 (3.5-5.0) g/dL Ethyl Alcohol mg/dL COVID-19 (ZAKIA) (Negative) COVID-19 Clin Com 02/04/21 02/04/21 02/04/21 Range/Units 13:42 13:42 15:21 WBC (4.8-10.8) X10*3/uL RBC (4.20-5.50) X10*6/uL Hgb (12.0-16.0) g/dl Hct (37-47) % MCV (80-98) fL MCH (27.0-33.0) pg MCHC (31.0-35.0) g/dl RDW (11.0-16.0) % Plt Count (160-400) X10*3/uL MPV (9.4-12.3) fL Immature Gran % (Auto) (0.0-0.4) % Neut % (Auto) (45-73) % Lymph % (Auto) (20-40) % Trimble % (Auto) (2-11) % Eos % (Auto) (0-4) % Baso % (Auto) (0-2) % Lymph # (Auto) (1.2-4.9) X10*3/uL Trimble # (Auto) (0.1-1.2) X10*3/uL Eos # (Auto) (0.0-0.4) X10*3/uL Baso # (Auto) (0.0-0.2) X10*3/uL Abs Immat Gran (auto) (0.00-0.03) X10*3/uL Absolute Neuts (auto) (2.0-8.3) X10*3/uL Absolute Nucleated RBC (0.0-0.012) X10*3/uL Nucleated RBC % (auto) (0.0-0.2) /100WBC Hold Blue Top Sodium (135-145) mmol/L Potassium (3.3-5.1) mmol/L Chloride (96-108) mmol/L Carbon Dioxide (22-29) mmol/L Anion Gap (12-20) BUN (9-16) mg/dL Creatinine (0.5-1.4) mg/dL Estim Creat Clear Calc Estimated GFR Random Glucose (60-115) mg/dL Osmolality 256 L (281-305) mosm/kg Calcium (8.4-10.2) mg/dL Magnesium (1.6-2.6) mg/dL Total Bilirubin (0.0-1.0) mg/dL Direct Bilirubin (0.0-0.5) mg/dL AST (5-31) U/L ALT (0-31) U/L Alkaline Phosphatase (39-117) U/L Total Protein (6.5-8.0) g/dL Albumin (3.5-5.0) g/dL Ethyl Alcohol < 10 mg/dL COVID-19 (ZAKIA) Negative (Negative) COVID-19 Clin Com See Note ECG Data Attestation: I personally reviewed and interpreted this ECG as follows: Interpretation: NSR with St depressions leads v1-v3 unchanged from EKG 12/20/20 Normal KS, normal QRS, prolonged QTC 475 Discharge Plan Discharge Clinical Impression: Acute hyponatremia Patient Disposition: Admitted As Inpatient
--- NOTE | 2021-02-04 12:39 | ECG_ITS ---
Test Reason : ABNORMAL LABS Blood Pressure : / mmHG Vent. Rate : 084 BPM Atrial Rate : 084 BPM P-R Int : 164 ms QRS Dur : 094 ms QT Int : 402 ms P-R-T Axes : 047 -09 058 degrees QTc Int : 475 ms Normal sinus rhythm with sinus arrhythmia RSR' or QR pattern in V1 suggests right ventricular conduction delay T wave abnormality, consider anterior ischemia Prolonged QT Abnormal ECG When compared with ECG of 20-DEC-2020 13:28, No significant change was found Referred By: Mavis Altamirano Electronically Signed By:Wilber Kincaid
[2021-02-04 13:50] LABS: MANUAL DIFF FLAG NO; White Blood Count 8.9 X10*3/uL (4.8-10.8)
[2021-02-04 13:51] LABS: Basophils Percent Auto 0.2 % (0-2); Eosinophils Percent Auto 0.1 % (0-4); Hematocrit 33.9 % (37-47); Hemoglobin 12.1 g/dl (12.0-16.0); Imm Gran Abs Auto 0.16 X10*3/uL (0.00-0.03); Imm Gran Pct Auto 1.8 % (0.0-0.4); Lymphocytes Absolute Auto 0.9 X10*3/uL (1.2-4.9); Mean Corpuscular HGB Conc 35.7 g/dl (31.0-35.0); Mean Corpuscular Hemoglobin 30.7 pg (27.0-33.0); Mean Platelet Volume 8.2 fL (9.4-12.3); Monocytes Absolute Auto 0.9 X10*3/uL (0.1-1.2); Monocytes Percent Auto 9.7 % (2-11); Neutrophils Absolute Auto 6.9 X10*3/uL (2.0-8.3); Neutrophils Percent Auto 78.2 % (45-73); Platelet Count 306 X10*3/uL (160-400); Red Blood Count 3.94 X10*6/uL (4.20-5.50); Red Cell Distribution Width 13.5 % (11.0-16.0)
[2021-02-04 14:10] LABS: Ethanol < 10 mg/dL
[2021-02-04 14:13] LABS: Alanine Aminotransferase 16 U/L (0-31); Albumin Level 3.6 g/dL (3.5-5.0); Alkaline Phosphatase 85 U/L (39-117); Aspartate Amino Transferase 16 U/L (5-31); Bilirubin Direct 0.3 mg/dL (0.0-0.5); Bilirubin Total 0.4 mg/dL (0.0-1.0); Blood Urea Nitrogen 22 mg/dL (9-16); Estimated Glomerular Filt Rate 41; Glucose Random 87 mg/dL (60-115); Magnesium 2.3 mg/dL (1.6-2.6); Total Protein 6.6 g/dL (6.5-8.0)
[2021-02-04 14:35] LABS: Anion Gap 18 (12-20); Carbon Dioxide 25 mmol/L (22-29); Chloride 82 mmol/L (96-108); Potassium 4.1 mmol/L (3.3-5.1); Sodium 121 mmol/L (135-145)
[2021-02-04 15:13] LABS: Osmolality, Serum 256 mosm/kg (281-305)
[2021-02-04 16:03] LABS: COVID-19 Test Negative (Negative)
[2021-02-04] MEDS: 0.9 % Sodium Chloride 1,000 ML 50 ML IV (16:12)
--- NOTE | 2021-02-04 16:43 | P.HPHOSP_ITS ---
History of Present Illness Date of Service: 02/04/21 Chief Complaint: Sent in by PCP This is a 65 yo F with a PMH of previous hyponatremia who presents to the hospital after she was directed to do so by her PCP for abnromal labs (hyponatremia). Despite the use of a molecular spectroscopist, the patient remains a poor historian. She denies any complaints herself. When asked about her alcohol intake she reports that she drinks only at parties in the last time she drank was at [employer] time. To the emergency room, patient's BMP showed a sodium value of 121. Serum osmolality is 256. Urine studies have been ordered and pending at this time. The case was discussed by the ED provider with Nephrology who recommended normal saline at 50 cc/hour and to monitor her serum sodium. Review of the patient's chart reveals that she has been admitted in July 2020, September 2020 and October 2020 for hyponatremia/CHF/confusion. Review of Systems Review of Systems: General - denies fevers or chills, denies weakness or fati chacha HEENT -denies blurred vision, denies headache, denies sore throat Cardiovascular - denies chest pain or palpitations, denies edema Respiratory - denies shortness of breath, coughing, wheezing Gastrointestinal - denies abdominal pain, nausea, vomiting, diarrhea - denies flank pain, denies dysuria, denies frequency or urgency Musculoskeletal - denies back pain, denies hip pain, denies knee pain, denies shoulder pain Neurological - denies any focal weakness or numbness Skin, denies any bruising or redness Psychiatric - denies any suicidal ideation, hallucinations, homicidal ideation Endocrinology - denies intolerance to hot / cold temperatures [facility] Medical History Bipolar 1 disorder Bipolar I disorder COPD (chronic obstructive pulmonary disease) Coronary artery disease Diabetes Hypertension Osteoarthritis Sleep apnea Surgical History Hx of appendectomy Social History Household Members: Family Housing: Apartment Alcohol intake: current Alcohol intake frequency: a few times a week Alcohol type: beer Smoking Status: Current every day smoker Tobacco Type: Cigarette Cigarettes Per Day: 4 Years Smoked: LONG TIME Substance Use Type: Marijuana Advance Directives: No Advance Directives Information Provided: No service: No Current occupational status: disabled and other Meds Allergies Allergy/AdvReac Type Severity Reaction Status Date / Time advair Allergy Unknown Unknown Uncoded 10/08/20 20:46 paxil Allergy Unknown Unknown Uncoded 10/08/20 20:46 From PAXIL AdvReac Intermediate NAUSEA & Uncoded 10/08/20 20:46 VOMITING Active Medications: Current Medications Generic Name Dose Route Start Last Admin Trade Name Freq PRN Reason Stop Dose Admin Sodium Chloride 1,000 mls @ 50 mls/hr 02/04/21 15:30 02/04/21 16:12 Ns IV 02/05/21 11:29 50 mls/hr .Q20H YUMIKO Administration Pharmacy Consult 1 each 02/04/21 15:08 Consult Rx Perform Med Rec MISCELLANE ONCE PRN Consult order Home Medications Medication Instructions Recorded Confirmed Last Taken Type Flovent HFA 1 puff INHALATION BID 08/18/20 02/04/21 Unknown History albuterol sulfate [Ventolin HFA] 2 puff INHALATION Q4-6H PRN 08/18/20 02/04/21 Unknown History aspirin 81 mg PO BEDTIME 08/18/20 02/04/21 Unknown History citalopram 40 mg PO QAM 08/18/20 02/04/21 Unknown History ipratropium-albuterol 1 amp INHALATION QID PRN 08/18/20 02/04/21 Unknown History montelukast 10 mg PO QPM 08/18/20 02/04/21 Unknown History baclofen 20 mg PO DAILY PRN 10/10/20 02/04/21 Unknown History clonazepam 1 mg PO BID 10/10/20 02/04/21 Unknown History pravastatin 20 mg PO BEDTIME 10/10/20 02/04/21 Unknown History quetiapine 50 mg PO BID 10/10/20 02/04/21 Unknown History metformin 500 mg PO DAILY 11/04/20 02/04/21 Unknown History acetaminophen 1 tab PO BID PRN 02/04/21 02/04/21 Unknown History folic acid 1 tab PO QAM 02/04/21 02/04/21 Unknown History sennosides [senna] 1 tab PO BID PRN 02/04/21 02/04/21 Unknown History thiamine HCl (vitamin B1) 1 tab PO QAM 02/04/21 02/04/21 Unknown History Physical Exam Vital Signs and Narrative: Vital Signs: Last Vital Signs Temp 98.9 F 02/04/21 12:40 Pulse 88 02/04/21 14:29 Resp 18 02/04/21 14:29 BP 140/83 H 02/04/21 14:29 Pulse Ox 98 02/04/21 12:40 Body Mass Index 34.2 Const: Other: Constitutional - Awake and Alert, No apparent distress Eyes - PERRLA, EOMI Cardiovascular - S1S2, RRR, No edema Respiratory - Normal lung expansion, Normal respiratory effort, No respiratory distress, CTA bilaterally Gastrointestinal - NT / ND; +BS; No rebound or guarding - No CVA tenderness Extremities - no calf tenderness bilaterally, no swelling Musculoskeletal - Normal inspection, normal ROM Skin - Warm/Dry Neurological - Oriented to place and situation (some what), disoriented to time (she thinks it is October 2008), oriented to person (knows Ita is the president), No focal deficit Psychological - Appropriate affect Results Labs CBC and Chem 7: 02/04/21 13:42 02/04/21 13:42 Labs: Laboratory Results - last 24 hr 02/04/21 02/04/21 02/04/21 13:42 13:42 13:42 MCV 86.0 MCH 30.7 MCHC 35.7 H RDW 13.5 Plt Count 306 MPV 8.2 L Immature Gran % (Auto) 1.8 H Neut % (Auto) 78.2 H Lymph % (Auto) 10.0 L [place] % (Auto) 9.7 Eos % (Auto) 0.1 Baso % (Auto) 0.2 Lymph # (Auto) 0.9 L [place] # (Auto) 0.9 Eos # (Auto) 0.0 Baso # (Auto) 0.0 Abs Immat Gran (auto) 0.16 H Absolute Neuts (auto) 6.9 Absolute Nucleated RBC 0.000 Nucleated RBC % (auto) 0.0 Hold Blue Top SEE NOTE Anion Gap 18 Estim Creat Clear Calc 44.0 Estimated GFR 41 Random Glucose 87 D Osmolality Calcium 9.0 Magnesium 2.3 Total Bilirubin 0.4 Direct Bilirubin 0.3 AST 16 ALT 16 Alkaline Phosphatase 85 Total Protein 6.6 Albumin 3.6 Ethyl Alcohol COVID-19 ([facility]) COVID-19 Clin Com 02/04/21 02/04/21 02/04/21 13:42 13:42 15:21 MCV MCH MCHC RDW Plt Count MPV Immature Gran % (Auto) Neut % (Auto) Lymph % (Auto) [place] % (Auto) Eos % (Auto) Baso % (Auto) Lymph # (Auto) [place] # (Auto) Eos # (Auto) Baso # (Auto) Abs Immat Gran (auto) Absolute Neuts (auto) Absolute Nucleated RBC Nucleated RBC % (auto) Hold Blue Top Anion Gap Estim Creat Clear Calc Estimated GFR Random Glucose Osmolality 256 L Calcium Magnesium Total Bilirubin Direct Bilirubin AST ALT Alkaline Phosphatase Total Protein Albumin Ethyl Alcohol < 10 COVID-19 ([facility]AKIA) Negative COVID-19 Clin Com See Note Assessment and Plan (1) Acute hyponatremia: Status: Acute 65 yo F with a PMH of prior hypoNa who presents to the hospital after she was told to do so by her PCP for severe hypoNa. BMP here shows SNa of 121. She is admitted for further work up 1. Severe HypoNa multifactorial, ? possibly from SSRI (will hold this) check urine studies NS @ 50 cc/hr, monitor sodium q6 hours; avoid rapid over-correction Nephrology consult 2. Alcohol Use unclear her last use will monitor with CIWA at this time continue MVI 3. DM hold oral meds use sliding scale 4. ? 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 Mood continue baseline meds minus SSRI Full Code DVT pptx, Lovenox
[2021-02-04 18:06] LABS: Glucose Urine UA NEG (NEG); Leukocyte Esterase Urine NEG (NEG); Nitrite Urine NEG (NEG); Specific Gravity - Urine <= 1.005 (1.005-1.025); Urine Blood 3+ (NEG); Urine Ketones 5 MG/DL (NEG); Urine Protein NEG (NEG-TRACE)
[2021-02-04 18:08] LABS: Appearance Urine CLEAR; Color Urine YELLOW
[2021-02-04 18:15] LABS: Bacteria Urine 1+ /LPF; Squamous Epithelial Cell Urine 1+ /LPF; WBC Urine 0 /HPF (0-4)
[2021-02-04 18:33] LABS: Uric Acid Urine Random 10.1 mg/dL
[2021-02-04 18:34] LABS: Osmolality Urine 108 mosm/kg (373-1093)
[2021-02-04 18:45] LABS: Sodium Urine Random < 20.0 mmol/L
[2021-02-04 19:14] LABS: Chloride Urine Random < 20.0 mmol/L
[2021-02-04] MEDS: Albuterol Sulfate 90 MCG 8 GM INHALER 2 PUFF INHALE (19:22)
[2021-02-04 20:09] LABS: Blood Urea Nitrogen 21 mg/dL (9-16); Calcium 8.8 mg/dL (8.4-10.2); Creatinine Clr Calc Pharmacy 48.9; Estimated Glomerular Filt Rate 46; Glucose Random 84 mg/dL (60-115)
[2021-02-04 20:19] LABS: Anion Gap 17 (12-20); Carbon Dioxide 24 mmol/L (22-29); Chloride 85 mmol/L (96-108); Potassium 4.1 mmol/L (3.3-5.1); Sodium 122 mmol/L (135-145)
[2021-02-04 20:28] LABS: Glucose, Whole Blood 156 mg/dL (60-115)
[2021-02-04] MEDS: QUEtiapine Fumarate 50 MG TABLET PO (20:54)
[2021-02-04] MEDS: Montelukast Sodium 10 MG TABLET PO (20:54)
[2021-02-04] MEDS: clonazePAM 1 MG TABLET PO (20:55)
[2021-02-04] MEDS: Aspirin Enteric Coated 81 MG TABLET.DR PO (20:55)
[2021-02-04] MEDS: Pravastatin Sodium 20 MG TABLET PO (20:55)
[2021-02-04] MEDS: Insulin Lispro 100 UNIT/ML 3 ML VIAL SUBCUT (20:56)
[2021-02-04] MEDS: Enoxaparin Sodium 40 MG/0.4 ML SYRINGE SUBCUT (20:57)
[2021-02-05] VITALS (8 sets, daily range): BP systolic 130–160; BP diastolic 68–83; PULSE 71–89; RESP 14–18; TEMP 36.1–36.7; O2SAT 96–100
[2021-02-05 01:28] LABS: Anion Gap 14 (12-20); Carbon Dioxide 28 mmol/L (22-29); Chloride 89 mmol/L (96-108); Creatinine Clr Calc Pharmacy 44.4; Estimated Glomerular Filt Rate 41; Glucose Random 94 mg/dL (60-115); Sodium 127 mmol/L (135-145)
[2021-02-05 01:33] LABS: Blood Urea Nitrogen 23 mg/dL (9-16)
[2021-02-05 07:34] LABS: Anion Gap 13 (12-20); Blood Urea Nitrogen 21 mg/dL (9-16); Calcium 8.7 mg/dL (8.4-10.2); Carbon Dioxide 28 mmol/L (22-29); Chloride 90 mmol/L (96-108); Creatinine Clr Calc Pharmacy 49.7; Estimated Glomerular Filt Rate 47; Glucose Random 97 mg/dL (60-115); Potassium 4.3 mmol/L (3.3-5.1); Sodium 127 mmol/L (135-145)
[2021-02-05 08:09] LABS: Glucose, Whole Blood 91 mg/dL (60-115)
[2021-02-05] MEDS: Thiamine HCL 100 MG TABLET PO (08:57)
[2021-02-05] MEDS: clonazePAM 1 MG TABLET PO ×2 (08:57→20:42)
[2021-02-05] MEDS: Metoprolol Succinate ER 50 MG TAB.ER.24H PO (08:57)
[2021-02-05] MEDS: Folic Acid 1 MG TABLET PO (08:57)
[2021-02-05] MEDS: QUEtiapine Fumarate 50 MG TABLET PO ×2 (08:58→20:42)
[2021-02-05] MEDS: Albuterol/Iprat 2.5/0.5MG 3 ML AMPUL.NEB INHALE ×3 (09:31→20:12)
[2021-02-05] MEDS: 0.9 % Sodium Chloride 500 ML 50 ML IV (10:25)
--- NOTE | 2021-02-05 10:54 | P.PNIM_ITS ---
Subjective Subjective Date of Service: 02/05/21 Interval History: seen and examined no complaints ROS General - no fevers or chills Cardiovascular - no chest pain Respiratory - no shortness of breath or cough Abdominal- no abdominal pain, nausea, vomiting, diarrhea Physical Exam Vital Signs: Vital Signs: Last Vital Signs Temp 97.9 F 02/05/21 07:39 Pulse 86 02/05/21 09:35 Resp 18 02/05/21 07:39 BP 157/69 H 02/05/21 07:39 Pulse Ox 100 02/05/21 07:39 Body Mass Index 34.2 Const: Other: Constitutional - Awake and Alert, No apparent distress Eyes - PERRLA, EOMI Cardiovascular - S1S2, RRR, No edema Respiratory - Normal lung expansion, Normal respiratory effort, No respiratory distress, CTA bilaterally Gastrointestinal - NT / ND; +BS; No rebound or guarding - No CVA tenderness Extremities - no calf tenderness bilaterally, no swelling Musculoskeletal - Normal inspection, normal ROM Skin - Warm/Dry Neurological - No focal deficit Psychological - Appropriate affect Objective Data Current Medications Generic Name Dose Route Start Last Admin Trade Name Freq PRN Reason Stop Dose Admin Acetaminophen 650 mg 02/04/21 17:52 Acetaminophen 325 Mg Tablet PO Q6H PRN Pain, Mild (Pain Scale 1-3) Albuterol Sulfate 2 puff 02/04/21 17:52 02/04/21 19:22 Albuterol Sulfate 90 Mcg 8 Gm Inhaler INHALE 2 puff Q4H PRN Administration Shortness Of Breath Or Wheezing Albuterol/Ipratropium 3 ml 02/04/21 17:52 02/05/21 09:31 Albuterol/Iprat 2.5/0.5mg 3 Ml Ampul.Neb INHALE 3 ml QID PRN Administration Shortness Of Breath Or Wheezing Aspirin 81 mg 02/04/21 21:00 02/04/21 20:55 Aspirin Enteric Coated 81 Mg Tablet. PO 81 mg BEDTIME YUMIKO Administration Baclofen 20 mg 02/04/21 17:52 Baclofen 20 Mg Tablet PO DAILY PRN Pain Clonazepam 1 mg 02/04/21 21:00 02/05/21 08:57 Clonazepam 1 Mg Tablet PO 1 mg BID YUMIKO Administration Enoxaparin Sodium 40 mg 02/04/21 20:00 02/04/21 20:57 Enoxaparin Sodium 40 Mg/0.4 Ml Syringe SUBCUT 40 mg Q24H YUMIKO Administration Folic Acid 1 mg 02/05/21 09:00 02/05/21 08:57 Folic Acid 1 Mg Tablet PO 1 mg DAILY YUMIKO Administration Sodium Chloride 500 mls @ 50 mls/hr 02/05/21 09:30 02/05/21 10:25 Ns IV 02/05/21 19:29 50 mls/hr .Q10H YUMIKO Administration Insulin Human Lispro 0 unit 02/04/21 21:00 02/05/21 08:58 Insulin Lispro 100 Unit/Ml 3 Ml Vial SUBCUT Not Given [facility] Protocol Metoprolol Succinate 50 mg 02/05/21 09:00 02/05/21 08:57 Metoprolol Succinate Er 50 Mg Tab.Er.24h PO 50 mg DAILY YUMIKO Administration Protocol Montelukast Sodium 10 mg 02/04/21 21:00 02/04/21 20:54 Montelukast Sodium 10 Mg Tablet PO 10 mg BEDTIME YUMIKO Administration Pharmacy Consult 1 each 02/04/21 15:08 Consult Rx Perform Med Rec MISCELLANE ONCE PRN Consult order Pravastatin Sodium 20 mg 02/04/21 21:00 02/04/21 20:55 Pravastatin Sodium 20 Mg Tablet PO 20 mg BEDTIME YUMIKO Administration Quetiapine Fumarate 50 mg 02/04/21 21:00 02/05/21 08:58 Quetiapine Fumarate 50 Mg Tablet PO 50 mg BID YUMIKO Administration Senna 8.6 mg 02/04/21 17:52 Sennosides 8.6 Mg Tablet PO BID PRN constipation Sodium Chloride 3 ml 02/05/21 00:00 02/05/21 08:58 0.9 % Sodium Chloride Flush 3 Ml Syringe IVFLUSH Not Given [facility] Thiamine HCl 100 mg 02/05/21 09:00 02/05/21 08:57 Thiamine Hcl 100 Mg Tablet PO 100 mg DAILY YUMIKO Administration Labs CBC & Chem 7: 02/04/21 13:42 02/05/21 06:46 Assessment and Plan (1) Acute hyponatremia: Status: Acute Assessment and Plan: 65 yo F with a PMH of prior hypoNa who presents to the hospital after she was to ld to do so by her PCP for severe hypoNa. BMP here shows SNa of 121. She is admitted for further work up 1. Severe HypoNa multifactorial - including hypovoluemia + SSRI? d/w Nephrology -- continue NS @ 50 cc/hr, recheck SNa later today rate of correctin appropriate this far 2. Alcohol Use unclear her last use will monitor with CIWA at this time continue MVI 3. DM hold oral meds use sliding scale 4. ? 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 Mood continue baseline meds minus SSRI Full Code DVT pptx, Lovenox
[2021-02-05 11:30] LABS: Glucose, Whole Blood 176 mg/dL (60-115)
[2021-02-05] MEDS: Insulin Lispro 100 UNIT/ML 3 ML VIAL SUBCUT (12:16)
--- NOTE | 2021-02-05 13:27 | CONS_ITS ---
DATE OF SERVICE: 02/05/2021 REASON FOR CONSULTATION: I was called to see this patient to assist in the management of hyponatremia. HISTORY OF PRESENT ILLNESS: To summarize, Belia is well known to us. She is a 65-year-old woman with a history of chronic hyponatremia. She comes into the hospital because of feeling weak and she was found to have hyponatremia. She has been drinking excessive free water and she has also been consuming alcohol. She has been on citalopram. At the time of admission, serum sodium of 121, and she was started on IV normal saline. Sodium is gradually improved this morning. PAST MEDICAL HISTORY: Ongoing medical problems include history of bipolar disorder, COPD, coronary artery disease, diabetes mellitus, chronic hyponatremia, history of sleep apnea, and obesity. PAST SURGICAL HISTORY: Includes appendicectomy. SOCIAL HISTORY: No history of any smoking. She does use marijuana as per records. She also smokes cigarettes. Consumes alcohol every day. REVIEW OF SYSTEMS: No headache, nausea, or vomiting. No abdominal pain, diarrhea, or constipation. . No rash. She denies polyuria or polydipsia. ALLERGIES: SHE IS ALLERGIC TO ADVAIR, PAXIL. MEDICATIONS: At the time of admission included Flovent, citalopram 40 mg, montelukast, quetiapine, metformin, senna. All other medications were reviewed. PHYSICAL EXAMINATION: GENERAL: Belia is a middle-aged woman. She is obese, comfortable, not in any distress. NECK: Supple. No JVD. HEENT: Mucosa is dry. LUNGS: Air entry equal. HEART: S1 and S2 heard. No gallop. ABDOMEN: Soft, nontender. EXTREMITIES: No edema. VITAL SIGNS: Blood pressure was 150/60, pulse 110, she is afebrile. LABORATORY DATA: Hemoglobin 12.1. Sodium 127, potassium 4.3, BUN 21, creatinine 1.15. On admission, creatinine was 1.29. Urine studies showed urine sodium less than 20, low fractional excretion. Urine osmolality was 108. IMPRESSION: 65-year-old woman with history of chronic hyponatremia, now with worsening of hyponatremia. The urine sodium was low with a low urine osmolality. The differential diagnosis would include excessive free water intake from from excessive beer or alcohol intake. RECOMMENDATIONS: My recommendation would be to hold the SSRI for a short term. Restrict oral free water intake to 1.5 L per 24 hours. I will cautiously hydrate her with normal saline at 50 mL/hour. Goal is to cut the serum sodium at a rate of 0.5 millimole per liter per hour and not to exceed more than 10 millimoles in a 24-hour period. We will follow her along with the team. Dilshad Gallegos MD BPA/MODL / [id number]
[2021-02-05 14:42] LABS: Anion Gap 15 (12-20); Blood Urea Nitrogen 21 mg/dL (9-16); Carbon Dioxide 29 mmol/L (22-29); Chloride 90 mmol/L (96-108); Creatinine Clr Calc Pharmacy 49.7; Estimated Glomerular Filt Rate 47; Glucose Random 88 mg/dL (60-115); Potassium 4.5 mmol/L (3.3-5.1); Sodium 129 mmol/L (135-145)
[2021-02-05 16:42] LABS: Glucose, Whole Blood 144 mg/dL (60-115)
[2021-02-05 20:32] LABS: Glucose, Whole Blood 143 mg/dL (60-115)
[2021-02-05] MEDS: Montelukast Sodium 10 MG TABLET PO (20:40)
[2021-02-05] MEDS: Pravastatin Sodium 20 MG TABLET PO (20:43)
[2021-02-05] MEDS: Aspirin Enteric Coated 81 MG TABLET.DR PO (20:43)
[2021-02-05] MEDS: Enoxaparin Sodium 40 MG/0.4 ML SYRINGE SUBCUT (20:44)
[2021-02-05 21:33] LABS: Sodium 127 mmol/L (135-145)
[2021-02-06] VITALS: BP 150/71; PULSE 77; RESP 16; TEMP 36.6; O2SAT 95
--- NOTE | 2021-02-06 03:23 | PC.NURSE ---
Pt sodium level at 20:51 was 127. Slight drop from previous 129 at 13:54. was notified. was notified that pt was almost finished with her last bag of normal saline at 50/hr and that the next BMP was to be drawn at 08:00. No new orders at this time.
[2021-02-06 04:00] VITALS: BP 154/81; PULSE 79; RESP 16; TEMP 37; O2SAT 100
[2021-02-06 06:50] LABS: Hematocrit 33.9 % (37-47); Hemoglobin 11.6 g/dl (12.0-16.0); Mean Corpuscular HGB Conc 34.2 g/dl (31.0-35.0); Mean Corpuscular Hemoglobin 30.3 pg (27.0-33.0); Mean Corpuscular Volume 88.5 fL (80-98); Mean Platelet Volume 8.4 fL (9.4-12.3); Platelet Count 311 X10*3/uL (160-400); Red Blood Count 3.83 X10*6/uL (4.20-5.50); Red Cell Distribution Width 13.7 % (11.0-16.0); White Blood Count 5.9 X10*3/uL (4.8-10.8)
[2021-02-06 07:16] LABS: Anion Gap 11 (12-20); Blood Urea Nitrogen 19 mg/dL (9-16); Calcium 9.1 mg/dL (8.4-10.2); Carbon Dioxide 30 mmol/L (22-29); Chloride 94 mmol/L (96-108); Creatinine Clr Calc Pharmacy 52.5; Estimated Glomerular Filt Rate 50; Glucose Random 109 mg/dL (60-115); Potassium 4.5 mmol/L (3.3-5.1); Sodium 130 mmol/L (135-145)
[2021-02-06 07:39] LABS: Glucose, Whole Blood 111 mg/dL (60-115)
[2021-02-06 08:00] VITALS: BP 140/69; PULSE 71; RESP 18; TEMP 36.4; O2SAT 97
--- NOTE | 2021-02-06 08:57 | PM.PNNEP ---
Subjective Subjective Date of Service: 02/06/21 Interval history: Events noted Na is better Physical Exam Vital Signs: Vital Signs: Last Vital Signs Temp 97.6 F 02/06/21 08:00 Pulse 71 02/06/21 08:00 Resp 18 02/06/21 08:00 BP 140/69 H 02/06/21 08:00 Pulse Ox 97 02/06/21 08:00 Body Mass Index 34.2 Const: General: No comfortable Cardio: Rate: abnormal rate Heart sounds: no gallops GI: Auscultation: normal bowel sounds Neuro: Motor exam (neuro): no tremor noted and no asterixis Objective Data Labs CBC & Chem 7: 02/06/21 06:26 02/06/21 06:26 Labs: Laboratory Results - last 24 hr 02/05/21 02/05/21 02/05/21 11:15 13:54 16:28 WBC RBC Hgb Hct MCV MCH MCHC RDW Plt Count MPV Absolute Nucleated RBC Nucleated RBC % (auto) Sodium 129 L Potassium 4.5 Chloride 90 L Carbon Dioxide 29 Anion Gap 15 BUN 21 H Creatinine 1.15 Estim Creat Clear Calc 49.7 Estimated GFR 47 POC Glucose 176 H 144 H Random Glucose 88 Calcium 9.0 02/05/21 02/05/21 02/06/21 20:28 20:51 06:26 WBC 5.9 RBC 3.83 L Hgb 11.6 L Hct 33.9 L MCV 88.5 MCH 30.3 MCHC 34.2 RDW 13.7 Plt Count 311 MPV 8.4 L Absolute Nucleated RBC 0.000 Nucleated RBC % (auto) 0.0 Sodium 127 L Potassium Chloride Carbon Dioxide Anion Gap BUN Creatinine Estim Creat Clear Calc Estimated GFR POC Glucose 143 H Random Glucose Calcium 02/06/21 02/06/21 06:26 07:13 WBC RBC Hgb Hct MCV MCH MCHC RDW Plt Count MPV Absolute Nucleated RBC Nucleated RBC % (auto) Sodium 130 L Potassium 4.5 Chloride 94 L Carbon Dioxide 30 H Anion Gap 11 L BUN 19 H Creatinine 1.09 Estim Creat Clear Calc 52.5 Estimated GFR 50 POC Glucose 111 Random Glucose 109 Calcium 9.1 Assessment & Plan Assessment and plan (1) Acute hyponatremia: Status: Acute Assessment and Plan: Hypotonic hyponatremia Low urine Osm -suggestive of excessive water/alcohol intake Na is gradually improving OK to DC IV NS Keep on PO water restriction and avoid beer/alcohol OK to restart Citolopram DC planning Time Spent With Patient Time: Total time spent is greater than 50% in coordination of care (as documented) at patient's floor/unit and/or counseling patient:
[2021-02-06] MEDS: clonazePAM 1 MG TABLET PO (09:19)
[2021-02-06] MEDS: Folic Acid 1 MG TABLET PO (09:19)
[2021-02-06] MEDS: QUEtiapine Fumarate 50 MG TABLET PO (09:19)
[2021-02-06 09:20] VITALS: BP 140/69; PULSE 71
[2021-02-06] MEDS: Thiamine HCL 100 MG TABLET PO (09:20)
[2021-02-06] MEDS: Metoprolol Succinate ER 50 MG TAB.ER.24H PO (09:20)
[2021-02-06] MEDS: 0.9 % Sodium Chloride Flush 3 ML SYRINGE IVFLUSH (09:20)
--- NOTE | 2021-02-06 10:29 | P.DS_ITS ---
DS: Providers Provider Date of Service: 02/06/21 <ALICIA Ma - Last Filed: 02/06/21 11:26> 02/06/21 <Kirby Whitman MD - Last Filed: 02/06/21 11:40> Date of admission: 02/04/21 16:42 <ALICIA Ma - Last Filed: 02/06/21 11:26> Primary care physician: Ryder Monique MD <ALICIA Ma - Last Filed: 02/06/21 11:26> Consults: 02/04/21 17:52 Consult to Nephrology Routine Consulting Provider: Dilshad Gallegos Reason for consultation: hyponatremia <ALICIA Ma - Last Filed: 02/06/21 11:26> DS: Diagnosis Discharge Diagnosis (1) Acute hyponatremia: Status: Acute <ALICIA Ma - Last Filed: 02/06/21 11:26> DS: Medications Discharge Medications Home Medications: Home Medications Medication Instructions Recorded Confirmed Flovent HFA 1 puff INHALATION BID 08/18/20 02/04/21 albuterol sulfate [Ventolin HFA] 2 puff INHALATION Q4-6H PRN 08/18/20 02/04/21 aspirin 81 mg PO BEDTIME 08/18/20 02/04/21 citalopram 40 mg PO QAM 08/18/20 02/04/21 ipratropium-albuterol 1 amp INHALATION QID PRN 08/18/20 02/04/21 montelukast 10 mg PO QPM 08/18/20 02/04/21 baclofen 20 mg PO DAILY PRN 10/10/20 02/04/21 clonazepam 1 mg PO BID 10/10/20 02/04/21 pravastatin 20 mg PO BEDTIME 10/10/20 02/04/21 quetiapine 50 mg PO BID 10/10/20 02/04/21 metformin 500 mg PO DAILY 11/04/20 02/04/21 acetaminophen 1 tab PO BID PRN 02/04/21 02/04/21 folic acid 1 tab PO QAM 02/04/21 02/04/21 sennosides [senna] 1 tab PO BID PRN 02/04/21 02/04/21 thiamine HCl (vitamin B1) 1 tab PO QAM 02/04/21 02/04/21 Previous Rx's Medication Instructions Recorded furosemide [Lasix] 20 mg PO DAILY #30 tab 10/21/20 metoprolol succinate 50 mg PO DAILY 30 Days #30 tab 11/08/20 <ALICIA Ma - Last Filed: 02/06/21 11:26> DS: Summary Hospital Course Hospital Course: This is a 65-year-old Danish-speaking female who was sent to the hospital by her PCP for hyponatremia. On arrival her sodium level was 121. With hypotonic hyponatremia suggestive of excessive water/alcohol intake. Seen in consultation by Nephrology who recommended fluid restriction and gentle normal saline. Her SSRI was initially placed on hold. Her sodium values were closely monitored. Her sodium improve slowly to 130 today and she is now stable for discharge. She may resume her SSRI on discharge. It is recommended to continue 1500 cc fluid restriction. She should repeat labs in 1 week and follow-up with PCP. She has history of etoh use, on this visit her alcohol level was negative. Her Lasix will be placed on hold until repeat labs are obtained. On previous admission her HCP was invoked due to underlying dementia. She will be discharged home with her HCP Magdy who is also her DIRECTOR OF OPERATIONS and resumption of her compassionate VNA services. Attending Attestation: Patient seen and examined independently and I was present during renee portion of E/M service. Agree with ALICIA Fong's history, physical, assessment, and plan. <ALICIA Ma - Last Filed: 02/06/21 11:26> Time Spent with Patient Time attestation: Total time spent providing and/or coordinating discharge services: <ALICIA Ma - Last Filed: 02/06/21 11:26> Discharge coordination time: Greater than 30 minutes <ALICIA Ma - Last Filed: 02/06/21 11:26> Quality: Stroke Does the patient have a stroke diagnosis?: No <ALICIA Ma - Last Filed: 02/06/21 11:26> Physical Exam Vital Signs: Vital Signs: Last Vital Signs Temp 97.6 F 02/06/21 08:00 Pulse 71 02/06/21 09:20 Resp 18 02/06/21 08:00 BP 140/69 H 02/06/21 09:20 Pulse Ox 97 02/06/21 08:00 Body Mass Index 34.2 <ALICIA Ma - Last Filed: 02/06/21 11:26> Const: General: alert and awake <ALICIA Ma - Last Filed: 02/06/21 11:26> Nutritional Appearance: well nourished <ALICIA Ma - Last Filed: 02/06/21 11:26> HENMT: Head: Yes normocephalic and Yes atraumatic <ALICIA Ma - Last Filed: 02/06/21 11:26> Eyes: Sclerae: sclerae normal <ALICIA Ma - Last Filed: 02/06/21 11:26> Chest: Chest palpation & inspection: normal inspection of the chest <ALICIA Ma - Last Filed: 02/06/21 11:26> Resp: Effort & Inspection: normal respiratory effort and no respiratory distress <ALICIA Ma - Last Filed: 02/06/21 11:26> Cardio: Rate: regular rate <ALICIA Ma - Last Filed: 02/06/21 11:26> Rhythm: regular rhythm <ALICIA Ma - Last Filed: 02/06/21 11:2 6> GI: Palpation (GI): Soft to palpation and nontender <ALICIA Ma - Last Filed: 02/06/21 11:26> Neuro: Cranial nerves: Yes CN's II-XII intact bilaterally and Yes Bilaterally intact EOM present <ALICIA Ma - Last Filed: 02/06/21 11:26> DS: Data Data Completed and Pending Labs on day of discharge: Laboratory Results - last 24 hr 02/05/21 02/05/21 02/05/21 11:15 13:54 16:28 WBC RBC Hgb Hct MCV MCH MCHC RDW Plt Count MPV Absolute Nucleated RBC Nucleated RBC % (auto) Sodium 129 L Potassium 4.5 Chloride 90 L Carbon Dioxide 29 Anion Gap 15 BUN 21 H Creatinine 1.15 Estim Creat Clear Calc 49.7 Estimated GFR 47 POC Glucose 176 H 144 H Random Glucose 88 Calcium 9.0 02/05/21 02/05/21 02/06/21 20:28 20:51 06:26 WBC 5.9 RBC 3.83 L Hgb 11.6 L Hct 33.9 L MCV 88.5 MCH 30.3 MCHC 34.2 RDW 13.7 Plt Count 311 MPV 8.4 L Absolute Nucleated RBC 0.000 Nucleated RBC % (auto) 0.0 Sodium 127 L Potassium Chloride Carbon Dioxide Anion Gap BUN Creatinine Estim Creat Clear Calc Estimated GFR POC Glucose 143 H Random Glucose Calcium 02/06/21 02/06/21 06:26 07:13 WBC RBC Hgb Hct MCV MCH MCHC RDW Plt Count MPV Absolute Nucleated RBC Nucleated RBC % (auto) Sodium 130 L Potassium 4.5 Chloride 94 L Carbon Dioxide 30 H Anion Gap 11 L BUN 19 H Creatinine 1.09 Estim Creat Clear Calc 52.5 Estimated GFR 50 POC Glucose 111 Random Glucose 109 Calcium 9.1 <ALICIA Ma - Last Filed: 02/06/21 11:26> Discharge Plan Discharge Patient Disposition: Home, Self-Care <ALICIA Ma - Last Filed: 02/06/21 11:26> Discharge Diagnosis: Hyponatremia <ALICIA Ma - Last Filed: 02/06/21 11:26> Hyponatremia <Kirby Whitman MD - Last Filed: 02/06/21 11:40> Referrals: Name,MD Ryder [Primary Care Provider] - 1 Week <ALICIA Ma - Last Filed: 02/06/21 11:26> Discharge Medications: Continued ipratropium-albuterol 0.5 mg-3 mg(2.5 mg base)/3 mL solution for nebulization 1 amp inhalation QID PRN (Reason: Shortness Of Breath Or Wheezing) RF: 0 citalopram 40 mg tablet 40 mg PO QAM RF: 0 aspirin 81 mg tablet,delayed release (DR/EC) 81 mg PO BEDTIME RF: 0 montelukast 10 mg tablet 10 mg PO QPM RF: 0 Flovent HFA 220 mcg/actuation HFA aerosol inhaler 1 puff inhalation BID RF: 0 albuterol sulfate [Ventolin HFA] 90 mcg/actuation HFA aerosol inhaler 2 puff inhalation Q4-6H PRN (Reason: Shortness Of Breath Or Wheezing) RF: 0 clonazepam 1 mg Tablet 1 mg PO BID RF: 0 baclofen 20 mg Tablet 20 mg PO DAILY PRN (Reason: Pain) RF: 0 pravastatin 20 mg Tablet 20 mg PO BEDTIME RF: 0 quetiapine 50 mg Tablet 50 mg PO BID RF: 0 metformin 500 mg tablet 500 mg PO DAILY RF: 0 metoprolol succinate 50 mg Tablet Extended Release 24 Hr 50 mg PO DAILY 30 Days Qty: 30 RF: 0 sennosides [senna] 8.6 mg tablet 1 tab PO BID PRN (Reason: constipation) RF: 0 thiamine HCl (vitamin B1) 100 mg tablet 1 tab PO QAM RF: 0 acetaminophen 650 mg tablet extended release 1 tab PO BID PRN (Reason: pain) RF: 0 folic acid 1 mg tablet 1 tab PO QAM RF: 0 Held furosemide [Lasix] 20 mg tablet 20 mg PO DAILY Qty: 30 RF: 0 Hold Instructions: Resume on 02/13/21. hold until repeat labs in 1 week, follow up with PCP <ALICIA Ma - Last Filed: 02/06/21 11:26> Activity on Discharge: As tolerated <ALICIA Ma - Last Filed: 02/06/21 11:26> As tolerated <Kirby Whitman MD - Last Filed: 02/06/21 11:40> Stand Alone Forms: Patient Portal Discharge page <ALICIA Ma - Last Filed: 02/06/21 11:26> Other Ambulatory Orders: Basic Metabolic Panel (Routine) Timeframe: [id number] Facility: [facility] - Location: Laboratory Ordered By: Melody Land <ALICIA Ma - Last Filed: 02/06/21 11:26> Care Plan Goals: See below <ALICIA Ma - Last Filed: 02/06/21 11:26> Health Concerns: Low sodium levels Alcohol use <ALICIA Ma - Last Filed: 02/06/21 11:26> Plan of Treatment: Drink no more than 6-7 cups or 50 oz of liquid daily Abstain from drinking alcohol Please get your labs re-checked in 1 week Don't take your lasix until your labs are re-checked and you check with your PCP Call your PCP to schedule a follow up appointment <ALICIA Ma - Last Filed: 02/06/21 11:26> Assessment: See discharge summary <ALICIA Ma - Last Filed: 02/06/21 11:26>
--- NOTE | 2021-02-06 11:08 | MHC.CM.PN ---
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 HER MANAGER FRENCH IS NEIDA ([phone]) SPOUSE IS BENDER HELPER AND PROVIDES TRANSPORT WHERE NEEDED. SHE IS ALSO ACTIVE WITH [facility]. REFERRAL PLACED FOR AGENCY TO FOLLOW. MIKO ([phone]) ASKS THAT WE ARRANGE FOR BLS TRANSPORT HOME. HE IS AWARE THAT A REFERRAL WILL BE PLACED TO [facility] FOR 1400. IMM 02/05 IN CHART.
[2021-02-06 11:22] VITALS: BP 137/72; PULSE 74; RESP 18; TEMP 36.3; O2SAT 98
[2021-02-06 11:33] LABS: Glucose, Whole Blood 119 mg/dL (60-115)
[2021-02-06 18:37] LABS: Urea, Random Urine 169 mg/dL
== END 2021-02-06 14:33 | disposition home or self-care (01) | DRG 641 ==
LOC: HO.ED 15:28 → HO.EDOVER 16:50 → HO.S3 16:51
PROVIDERS: Nurse Practitioner Acute Care; Nurse Practitioner Family; Admitting Provider Family Medicine; Emergency Provider Emergency Medicine; PCP Internal Medicine Geriatric Medicine; Visit Provider Family Medicine
DX: E87.1 Hypo-osmolality and hyponatremia (principal); Z20.822 Contact with and (suspected) exposure to COVID-19; F31.9 Bipolar disorder, unspecified; F03.90 Unspecified dementia, unspecified severity, without behavioral disturbance, psychotic disturbance, mood disturbance, and anxiety; I25.10 Atherosclerotic heart disease of native coronary artery without angina pectoris; E11.9 Type 2 diabetes mellitus without complications; M19.90 Unspecified osteoarthritis, unspecified site; G47.30 Sleep apnea, unspecified; F17.210 Nicotine dependence, cigarettes, uncomplicated; Z71.6 Tobacco abuse counseling; Z79.51 Long term (current) use of inhaled steroids; Z79.82 Long term (current) use of aspirin; Z79.899 Other long term (current) drug therapy
CPT/HCPCS: 36415; 80048; 80076; 80320; 81001; 82436; 82947; 83735; 83930; 83935; 84133; 84295; 84300; 84540; 84560; 85025; 85027; 87635; 93005; 94640; 99285; J1650

== ENCOUNTER 2021-02-12 20:26 | Emergency (ER) | payer MEDICARE, MEDICAID, SELFPAY ==
--- NOTE | ~2021-02-12 | XR_ITS ---
EXAMINATION: XR CHEST CLINICAL INFORMATION: Cough. COMPARISON: None TECHNIQUE: Frontal view of the chest was obtained. FINDINGS: The lungs are well-expanded and clear of acute process. Heart size and pulmonary vascularity is normal. There is moderate degenerative changes right shoulder joint. Rest of the visualized bones are grossly unremarkable. XR/XR chest 1V IMPRESSION: No acute cardiopulmonary process seen.
--- NOTE | ~2021-02-12 | CT_ITS ---
EXAMINATION: CT ABDOMEN AND PELVIS WITH CONTRAST CLINICAL INFORMATION: Abdominal pain, rule out small bowel obstruction COMPARISON: 11/04/2020 TECHNIQUE: Multidetector volumetric images were obtained from the superior aspect of the liver through the pubic symphysis following administration 85 mL of Omnipaque 350 intravenous contrast. Sagittal and coronal reformatted images were obtained on the technologist's workstation. Oral contrast: No This CT examination was performed using dose optimization techniques as appropriate, variously including the following: *Automated exposure control *Adjustment of mA and/or kV according to patient size (this includes techniques or standardized protocols for targeted exams where dose is matched to indication/reason for exam; i.e. extremities or head) *Use of iterative reconstruction technique DLP: 854 mGy-cm FINDINGS: Limited evaluation in some regions due to motion artifact. LUNG BASES: The visualized lung bases are unremarkable. LIVER, GALLBLADDER, AND BILIARY TREE: The liver is normal in size, shape, and attenuation. No focal hepatic lesion or biliary ductal dilatation is present. The gallbladder is grossly unremarkable. PANCREAS: Unremarkable. SPLEEN: Unremarkable. ADRENAL GLANDS: Unremarkable. KIDNEYS AND URETERS: The kidneys are normal in size, shape, and attenuation. No hydronephrosis, hydroureter, or obstructing calculi seen. No perinephric stranding. BLADDER: Unremarkable. GASTROINTESTINAL TRACT: Colonic diverticulosis is noted. The small and large bowel are otherwise unremarkable without evidence of obstruction or pericolonic inflammatory change. The appendix is unremarkable. No free fluid or free air is seen. ABDOMINAL WALL: No significant hernia is appreciated. LYMPH NODES: Normal. VASCULAR: Scattered atherosclerotic calcifications are present. PELVIC VISCERA: Unremarkable. OSSEOUS STRUCTURES: Degenerative changes are noted in the spine and hips. CT/CT abdomen pelvis w con IMPRESSION: Limited assessment in some regions due to motion artifact. No acute findings identified. No evidence of bowel obstruction.
[2021-02-12 20:34] VITALS: BP 109/55; BP 130/70; PULSE 90; PULSE 93; RESP 16; TEMP 36.9; O2SAT 96; O2SAT 98; BMI 39.3
--- NOTE | 2021-02-12 21:56 | PC.NURSE ---
at bedside speaking with patient
[2021-02-12 22:00] VITALS: BP 135/64; PULSE 91; RESP 16; TEMP 36.9; O2SAT 99
--- NOTE | 2021-02-12 22:01 | ED_ITS ---
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 It is not associated with any fever, chills, diarrhea, but patient states she has continued to pass flatus/have a BM, and is noted to be nauseous but without any vomiting. She denies any urinary symptoms and states she has had a as well as appendectomy in the past. Related Data Home Medications Medication Instructions Recorded Confirmed Flovent HFA 1 puff INHALATION BID 08/18/20 02/04/21 albuterol sulfate [Ventolin HFA] 2 puff INHALATION Q4-6H PRN 08/18/20 02/04/21 aspirin 81 mg PO BEDTIME 08/18/20 02/13/21 citalopram 40 mg PO QAM 08/18/20 02/13/21 ipratropium-albuterol 1 amp INHALATION QID PRN 08/18/20 02/04/21 montelukast 10 mg PO QPM 08/18/20 02/13/21 baclofen 20 mg PO DAILY PRN 10/10/20 02/04/21 clonazepam 1 mg PO BID 10/10/20 02/04/21 pravastatin 20 mg PO BEDTIME 10/10/20 02/13/21 quetiapine 50 mg PO BID 10/10/20 02/13/21 metformin 500 mg PO DAILY 11/04/20 02/13/21 acetaminophen 1 tab PO BID PRN 02/04/21 02/04/21 folic acid 1 tab PO QAM 02/04/21 02/13/21 sennosides [senna] 1 tab PO BID PRN 02/04/21 02/04/21 thiamine HCl (vitamin B1) 1 tab PO QAM 02/04/21 02/13/21 Previous Rx's Medication Instructions Recorded furosemide [Lasix] 20 mg PO DAILY #30 tab 10/21/20 metoprolol succinate 50 mg PO DAILY 30 Days #30 tab 11/08/20 Allergies Allergy/AdvReac Type Severity Reaction Status Date / Time advair Allergy Unknown Unknown Uncoded 02/12/21 20:38 paxil Allergy Unknown Unknown Uncoded 02/12/21 20:38 From PAXIL AdvReac Intermediate NAUSEA & Uncoded 02/12/21 20:38 VOMITING Review of Systems Review of Systems Pertinent positives and negatives as stated in HPI 10 point review of systems is otherwise negative. Physical Exam Vital Signs: Vital Signs: Last Vital Signs Temp 98.5 F 02/12/21 22:00 Pulse 89 02/13/21 08:53 Resp 17 02/13/21 08:53 BP 151/82 H 02/13/21 08:53 Pulse Ox 100 02/13/21 08:53 Body Mass Index 39.3 VITAL SIGNS: Reviewed. GENERAL: Well developed, well nourished, in no acute distress. HEAD: Normocephalic/atraumatic EYES: PERRLA, EOMI EARS: Ext canals without abnormality NOSE: Nares patent bilateral OROPHARYNX: no oral lesions noted, posterior pharynx clear NECK: Supple, no adenopathy LUNGS: Normal breath sounds. No adventitious sounds or accessory muscle use. SpO2<99> CARDIOVASCULAR: Regular rate and rhythm without noted murmurs ABDOMEN: Soft, tenderness at mid abdomen without rebound, non-distended with bowel sounds. SKIN: Inspection of the skin reveals no rashes NEUROLOGIC: Alert and oriented x 4. Course Course Course Narrative: 65-year-old female with history and clinical presentation suggestive SBO versus diverticulitis. On review of all investigations there are no acute findings to explain patient's presentation and on re-evaluation she is had complete resolution of all symptoms. She was noted to be resting comfortably and all results were disc ussed with her at bedside. On repeat BMP sodium and chloride have responded well and feel that patient can be followed by her PCP as she is otherwise asymptomatic. On review of prior discharge paperwork she was discharged home with her HCP, Juanjo, who is also her WIRE SPIRAL BINDER with resumption of her compassionate VNA services. Based on this will attempt to get in contact with Juanjo prior to discharge. As we were unable to contact Juanjo, case management services were requested. Patient is otherwise medically stable for discharge to home. Signed out to ALICIA Chandra. MDM - Abdominal Pain Lab Data Result diagrams: 02/12/21 23:04 02/13/21 03:33 Labs: Lab Results 02/12/21 02/12/21 02/12/21 Range/Units 23:04 23:04 23:04 WBC 7.2 (4.8-10.8) X10*3/uL RBC 3.69 L (4.20-5.50) X10*6/uL Hgb 11.2 L (12.0-16.0) g/dl Hct 32.6 L (37-47) % MCV 88.3 (80-98) fL MCH 30.4 (27.0-33.0) pg MCHC 34.4 (31.0-35.0) g/dl RDW 13.7 (11.0-16.0) % Plt Count 313 (160-400) X10*3/uL MPV 8.3 L (9.4-12.3) fL Immature Gran % (Auto) 0.8 H (0.0-0.4) % Neut % (Auto) 75.5 H (45-73) % Lymph % (Auto) 15.5 L (20-40) % [place] % (Auto) 7.7 (2-11) % Eos % (Auto) 0.1 (0-4) % Baso % (Auto) 0.4 (0-2) % Lymph # (Auto) 1.1 L (1.2-4.9) X10*3/uL [place] # (Auto) 0.6 (0.1-1.2) X10*3/uL Eos # (Auto) 0.0 (0.0-0.4) X10*3/uL Baso # (Auto) 0.0 (0.0-0.2) X10*3/uL Abs Immat Gran (auto) 0.06 H (0.00-0.03) X10*3/uL Absolute Neuts (auto) 5.4 (2.0-8.3) X10*3/uL Absolute Nucleated RBC 0.000 (0.0-0.012) X10*3/uL Nucleated RBC % (auto) 0.0 (0.0-0.2) /100WBC Sodium 127 L (135-145) mmol/L Potassium 4.0 (3.3-5.1) mmol/L Chloride 92 L (96-108) mmol/L Carbon Dioxide 25 (22-29) mmol/L Anion Gap 14 (12-20) BUN 16 (9-16) mg/dL Creatinine 1.39 (0.5-1.4) mg/dL Estim Creat Clear Calc 37.9 Estimated GFR 38 Random Glucose 124 H (60-115) mg/dL Lactic Acid (0.5-2.0) mmol/L Calcium 8.9 (8.4-10.2) mg/dL Total Bilirubin 0.4 (0.0-1.0) mg/dL AST 15 (5-31) U/L ALT 17 (0-31) U/L Alkaline Phosphatase 79 (39-117) U/L Total Protein 6.5 (6.5-8.0) g/dL Albumin 3.4 L (3.5-5.0) g/dL Lipase (8-78) U/L Urine Color Urine Appearance Urine pH (5.0-8.0) Ur Specific [place] (1.005-1.025) Urine Protein (NEG-TRACE) MG/DL Urine Glucose (UA) (NEG) MG/DL Urine Ketones (NEG) MG/DL Urine Blood (NEG) Urine Nitrite (NEG) Ur Leukocyte Esterase (NEG) Urine RBC (0) /HPF Urine WBC (0-4) /HPF Ur Squamous Epith Cells /LPF Urine Bacteria /LPF Urine Mucus /LPF COVID-19 (ZAKIA) Negative (Negative) COVID-19 Clin Com See Note 02/12/21 02/12/21 02/13/21 Range/Units 23:04 23:04 01:01 WBC (4.8-10.8) X10*3/uL RBC (4.20-5.50) X10*6/uL Hgb (12.0-16.0) g/dl Hct (37-47) % MCV (80-98) fL MCH (27.0-33.0) pg MCHC (31.0-35.0) g/dl RDW (11.0-16.0) % Plt Count (160-400) X10*3/uL MPV (9.4-12.3) fL Immature Gran % (Auto) (0.0-0.4) % Neut % (Auto) (45-73) % Lymph % (Auto) (20-40) % [place] % (Auto) (2-11) % Eos % (Auto) (0-4) % Baso % (Auto) (0-2) % Lymph # (Auto) (1.2-4.9) X10*3/uL [place] # (Auto) (0.1-1.2) X10*3/uL Eos # (Auto) (0.0-0.4) X10*3/uL Baso # (Auto) (0.0-0.2) X10*3/uL Abs Immat Gran (auto) (0.00-0.03) X10*3/uL Absolute Neuts (auto) (2.0-8.3) X10*3/uL Absolute Nucleated RBC (0.0-0.012) X10*3/uL Nucleated RBC % (auto) (0.0-0.2) /100WBC Sodium (135-145) mmol/L Potassium (3.3-5.1) mmol/L Chloride (96-108) mmol/L Carbon Dioxide (22-29) mmol/L Anion Gap (12-20) BUN (9-16) mg/dL Creatinine (0.5-1.4) mg/dL Estim Creat Clear Calc Estimated GFR Random Glucose (60-115) mg/dL Lactic Acid 1.2 (0.5-2.0) mmol/L Calcium (8.4-10.2) mg/dL Total Bilirubin (0.0-1.0) mg/dL AST (5-31) U/L ALT (0-31) U/L Alkaline Phosphatase (39-117) U/L Total Protein (6.5-8.0) g/dL Albumin (3.5-5.0) g/dL Lipase 37 (8-78) U/L Urine Color YELLOW Urine Appearance CLEAR Urine pH 5.5 (5.0-8.0) Ur Specific [place] 1.010 (1.005-1.025) Urine Protein NEG (NEG-TRACE) MG/DL Urine Glucose (UA) NEG (NEG) MG/DL Urine Ketones NEG (NEG) MG/DL Urine Blood 3+ H (NEG) Urine Nitrite NEG (NEG) Ur Leukocyte Esterase NEG (NEG) Urine RBC 5-9 H (0) /HPF Urine WBC 1-4 (0-4) /HPF Ur Squamous Epith Cells 1+ /LPF Urine Bacteria 1+ /LPF Urine Mucus 1+ /LPF COVID-19 (ZAKIA) (Negative) COVID-19 Clin Com 02/13/21 Range/Units 03:33 WBC (4.8-10.8) X10*3/uL RBC (4.20-5.50) X10*6/uL Hgb (12.0-16.0) g/dl Hct (37-47) % MCV (80-98) fL MCH (27.0-33.0) pg MCHC (31.0-35.0) g/dl RDW (11.0-16.0) % Plt Count (160-400) X10*3/uL MPV (9.4-12.3) fL Immature Gran % (Auto) (0.0-0.4) % Neut % (Auto) (45-73) % Lymph % (Auto) (20-40) % [place] % (Auto) (2-11) % Eos % (Auto) (0-4) % Baso % (Auto) (0-2) % Lymph # (Auto) (1.2-4.9) X10*3/uL [place] # (Auto) (0.1-1.2) X10*3/uL Eos # (Auto) (0.0-0.4) X10*3/uL Baso # (Auto) (0.0-0.2) X10*3/uL Abs Immat Gran (auto) (0.00-0.03) X10*3/uL Absolute Neuts (auto) (2.0-8.3) X10*3/uL Absolute Nucleated RBC (0.0-0.012) X10*3/uL Nucleated RBC % (auto) (0.0-0.2) /100WBC Sodium 128 L (135-145) mmol/L Potassium 4.1 (3.3-5.1) mmol/L Chloride 94 L (96-108) mmol/L Carbon Dioxide 26 (22-29) mmol/L Anion Gap 12 (12-20) BUN 16 (9-16) mg/dL Creatinine 1.23 (0.5-1.4) mg/dL Estim Creat Clear Calc 42.8 Estimated GFR 44 Random Glucose 112 (60-115) mg/dL Lactic Acid (0.5-2.0) mmol/L Calcium 8.8 (8.4-10.2) mg/dL Total Bilirubin (0.0-1.0) mg/dL AST (5-31) U/L ALT (0-31) U/L Alkaline Phosphatase (39-117) U/L Total Protein (6.5-8.0) g/dL Albumin (3.5-5.0) g/dL Lipase (8-78) U/L Urine Color Urine Appearance Urine pH (5.0-8.0) Ur Specific [place] (1.005-1.025) Urine Protein (NEG-TRACE) MG/DL Urine Glucose (UA) (NEG) MG/DL Urine Ketones (NEG) MG/DL Urine Blood (NEG) Urine Nitrite (NEG) Ur Leukocyte Esterase (NEG) Urine RBC (0) /HPF Urine WBC (0-4) /HPF Ur Squamous Epith Cells /LPF Urine Bacteria /LPF Urine Mucus /LPF COVID-19 (ZAKIA) (Negative) COVID-19 Clin Com ECG Data Attestation: I personally reviewed and interpreted this ECG as follows: Prior ECG tracings: available for review (02/04/2021 no acute changes on comparison) Interpretation: Sinus rhythm, HR-92, no evidence of acute ischemia, TN/QRS are within normal limits QTC is mildly prolonged at 482 Discharge Plan Discharge Clinical Impression: Dementia, Abdominal discomfort Patient Disposition: Home, Self-Care Prescriptions: No Action ipratropium-albuterol 0.5 mg-3 mg(2.5 mg base)/3 mL solution for nebulization 1 amp inhalation QID PRN (Reason: Shortness Of Breath Or Wheezing) RF: 0 citalopram 40 mg tablet 40 mg PO QAM RF: 0 aspirin 81 mg tablet,delayed release (DR/EC) 81 mg PO BEDTIME RF: 0 montelukast 10 mg tablet 10 mg PO QPM RF: 0 Flovent HFA 220 mcg/actuation HFA aerosol inhaler 1 puff inhalation BID RF: 0 albuterol sulfate [Ventolin HFA] 90 mcg/actuation HFA aerosol inhaler 2 puff inhalation Q4-6H PRN (Reason: Shortness Of Breath Or Wheezing) RF: 0 clonazepam 1 mg Tablet 1 mg PO BID RF: 0 baclofen 20 mg Tablet 20 mg PO DAILY PRN (Reason: Pain) RF: 0 pravastatin 20 mg Tablet 20 mg PO BEDTIME RF: 0 quetiapine 50 mg Tablet 50 mg PO BID RF: 0 furosemide [Lasix] 20 mg tablet 20 mg PO DAILY Qty: 30 RF: 0 Hold Instructions: Resume on 02/13/21. hold until repeat labs in 1 week, follow up with PCP metformin 500 mg tablet 500 mg PO DAILY RF: 0 metoprolol succinate 50 mg Tablet Extended Release 24 Hr 50 mg PO DAILY 30 Days Qty: 30 RF: 0 sennosides [senna] 8.6 mg tablet 1 tab PO BID PRN (Reason: constipation) RF: 0 thiamine HCl (vitamin B1) 100 mg tablet 1 tab PO QAM RF: 0 acetaminophen 650 mg tablet extended release 1 tab PO BID PRN (Reason: pain) RF: 0 folic acid 1 mg tablet 1 tab PO QAM RF: 0 PMFSH Past Medical History Source: nursing notes reviewed Medical History Bipolar 1 disorder Bipolar I disorder Congestive heart failure COPD (chronic obstructive pulmonary disease) Coronary artery disease Diabetes Hypertension Osteoarthritis Sleep apnea Surgical History Hx of appendectomy Social History Social History Household Members: Spouse Housing: House Alcohol intake: current Alcohol intake frequency: does not drink Alcohol type: beer Smoking Status: Light tobacco smoker Tobacco Type: Cigarette Cigarettes Per Day: 5 Years Smoked: 52 Second Hand Smoke Exposure: No Use of substances other than those prescribed or required for medical reasons: No Substance Use Type: Marijuana Advance Directives: No Advance Directives Information Provided: Yes service: No Current occupational status: disabled and other
--- NOTE | 2021-02-12 22:30 | ECG_ITS ---
Test Reason : ABD PAIN Blood Pressure : / mmHG Vent. Rate : 092 BPM Atrial Rate : 092 BPM P-R Int : 150 ms QRS Dur : 094 ms QT Int : 390 ms P-R-T Axes : 044 -19 029 degrees QTc Int : 482 ms Normal sinus rhythm with sinus arrhythmia RSR' or QR pattern in V1 suggests right ventricular conduction delay T wave abnormality, consider anterior ischemia Prolonged QT Abnormal ECG When compared with ECG of 04-FEB-2021 13:09, No significant change was found Referred By: Elvia Us Electronically Signed By:CAMPOS KELLER MD
--- NOTE | 2021-02-12 22:52 | PC.NURSE ---
IT/Help Desk contacted to cancel orders entered in error by . IT to contact hospitalist at [phone], or this RN at [phone] if needed. unable to cancel orders without IT help. aware.
[2021-02-12] MEDS: 0.9 % Sodium Chloride 1,000 ML 999 ML IV (23:06)
--- NOTE | 2021-02-12 23:09 | PC.NURSE ---
Labs drawn and sent for analysis, awaiting results. 20g IV access established in left AC by EMS prior to arrival and remains patent/functional/intact. Pt was sleeping peacefully prior to lab draw. Will continue to monitor.
[2021-02-12 23:11] LABS: MANUAL DIFF FLAG NO
[2021-02-12 23:13] LABS: Basophils Percent Auto 0.4 % (0-2); Eosinophils Percent Auto 0.1 % (0-4); Hematocrit 32.6 % (37-47); Hemoglobin 11.2 g/dl (12.0-16.0); Imm Gran Abs Auto 0.06 X10*3/uL (0.00-0.03); Imm Gran Pct Auto 0.8 % (0.0-0.4); Lymphocytes Absolute Auto 1.1 X10*3/uL (1.2-4.9); Lymphocytes Percent Auto 15.5 % (20-40); Mean Corpuscular HGB Conc 34.4 g/dl (31.0-35.0); Mean Corpuscular Hemoglobin 30.4 pg (27.0-33.0); Mean Corpuscular Volume 88.3 fL (80-98); Mean Platelet Volume 8.3 fL (9.4-12.3); Monocytes Absolute Auto 0.6 X10*3/uL (0.1-1.2); Monocytes Percent Auto 7.7 % (2-11); Neutrophils Absolute Auto 5.4 X10*3/uL (2.0-8.3); Neutrophils Percent Auto 75.5 % (45-73); Platelet Count 313 X10*3/uL (160-400); Red Blood Count 3.69 X10*6/uL (4.20-5.50); Red Cell Distribution Width 13.7 % (11.0-16.0); White Blood Count 7.2 X10*3/uL (4.8-10.8)
[2021-02-12 23:19] VITALS: BP 139/74; PULSE 98; RESP 20; O2SAT 97
[2021-02-12 23:31] LABS: COVID-19 Test Negative (Negative)
[2021-02-12 23:33] LABS: Lactic Acid 1.2 mmol/L (0.5-2.0)
[2021-02-12 23:38] LABS: Lipase 37 U/L (8-78)
[2021-02-12 23:39] LABS: Alanine Aminotransferase 17 U/L (0-31); Albumin Level 3.4 g/dL (3.5-5.0); Alkaline Phosphatase 79 U/L (39-117); Anion Gap 14 (12-20); Aspartate Amino Transferase 15 U/L (5-31); Bilirubin Total 0.4 mg/dL (0.0-1.0); Blood Urea Nitrogen 16 mg/dL (9-16); Calcium 8.9 mg/dL (8.4-10.2); Carbon Dioxide 25 mmol/L (22-29); Chloride 92 mmol/L (96-108); Creatinine Clr Calc Pharmacy 37.9; Estimated Glomerular Filt Rate 38; Glucose Random 124 mg/dL (60-115); Sodium 127 mmol/L (135-145); Total Protein 6.5 g/dL (6.5-8.0)
[2021-02-13] VITALS (11 sets, daily range): BP systolic 128–174; BP diastolic 58–82; PULSE 85–94; RESP 15–20; O2SAT 1–100
--- NOTE | 2021-02-13 00:27 | PC.NURSE ---
Patient sleeping at this time. No acute distress noted. Respirations even/unlabored. Will continue to monitor.
[2021-02-13] MEDS: iohexoL 350 MG/ML 100 ML INFUS..BTL 85 ML IV (01:07)
[2021-02-13 01:11] LABS: Glucose Urine UA NEG (NEG); Leukocyte Esterase Urine NEG (NEG); Nitrite Urine NEG (NEG); PH 5.5 (5.0-8.0); Urine Blood 3+ (NEG); Urine Ketones NEG (NEG); Urine Protein NEG (NEG-TRACE)
[2021-02-13 01:12] LABS: Appearance Urine CLEAR; Color Urine YELLOW
[2021-02-13 01:19] LABS: Bacteria Urine 1+ /LPF; Mucus Urine 1+ /LPF; Squamous Epithelial Cell Urine 1+ /LPF
[2021-02-13 04:13] LABS: Anion Gap 12 (12-20); Blood Urea Nitrogen 16 mg/dL (9-16); Calcium 8.8 mg/dL (8.4-10.2); Carbon Dioxide 26 mmol/L (22-29); Chloride 94 mmol/L (96-108); Creatinine Clr Calc Pharmacy 42.8; Estimated Glomerular Filt Rate 44; Glucose Random 112 mg/dL (60-115); Potassium 4.1 mmol/L (3.3-5.1); Sodium 128 mmol/L (135-145)
--- NOTE | 2021-02-13 07:32 | PC.NURSE ---
Attempted to contact patient's (Juanjo Montelongo). Voicemail left in both Kiswahili and Urdu. Case management ordered by to ensure that resources are in place for home care or other services, and that appointments are being attended due to dementia diagnosis. Unable to reach , awaiting call back. Plan for case management consultation prior to discharge. Will continue to monitor. Report given to REAGAN Breaux.
--- NOTE | 2021-02-13 08:39 | MHC.CM.ED ---
Received case management consult from Dr Us. Patient came to ER due to abd pain. Work up essentially negative. Patient would have been discharged home. However, ER was not able to get in touch patient's sig other/HCP Mag[facility]. T/w left voicemails at [phone] and [phone] requesting return telephone call. Continue to monitor for d/c needs.
--- NOTE | 2021-02-13 08:40 | PC.NURSE ---
@0832 CALL CHECKING IN ON PT FROM NUMBER [phone],RN TAKES OVER CALL RIGHT AWAY
--- NOTE | 2021-02-13 08:45 | PC.NURSE ---
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 NAIMA STATES THAT PT USUALLY GOES HOME BY AMBULANCE AND THAT HER HAS A MD APPT THIS AM AT 1100 THAT HE NEEDS TO GO TO SO PT CAN BE SENT HOME AROUND 1400 TODAY. NAIMA STATES THAT SHE WILL CALL PT'S AND LET HIM KNOW THE PLAN FOR D/C HOME TODAY. PT'S MIKO, . PT IS AWARE OF PLAN OF CARE.
[2021-02-13 10:05] LABS: Glucose, Whole Blood 110 mg/dL (60-115)
[2021-02-13] MEDS: Furosemide 20 MG TABLET PO (10:17)
--- NOTE | 2021-02-13 10:17 | MHC.CM.ED ---
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 Med nec with chart. Patient, Olga VARGAS and Namita RN aware. Continue to monitor for d/c needs.
[2021-02-13] MEDS: Folic Acid 1 MG TABLET PO (10:18)
[2021-02-13] MEDS: metFORMIN HCl 500 MG TABLET PO (10:18)
[2021-02-13] MEDS: Metoprolol Succinate ER 50 MG TAB.ER.24H PO (10:18)
[2021-02-13] MEDS: QUEtiapine Fumarate 50 MG TABLET PO (10:18)
[2021-02-13] MEDS: Thiamine HCL 100 MG TABLET PO (10:18)
[2021-02-13] MEDS: Albuterol Sulfate (0.083%) 2.5 MG/3 ML VIAL.NEB 10 MG INHALE (10:37)
[2021-02-13] MEDS: clonazePAM 1 MG TABLET PO (11:29)
== END 2021-02-13 14:37 | disposition home or self-care (01) ==
PROVIDERS: Emergency Provider Student in an Organized Health Care Education/Training Program
DX: F03.90 Unspecified dementia, unspecified severity, without behavioral disturbance, psychotic disturbance, mood disturbance, and anxiety (principal); R10.9 Unspecified abdominal pain; E11.9 Type 2 diabetes mellitus without complications; I10 Essential (primary) hypertension; F17.210 Nicotine dependence, cigarettes, uncomplicated; Z79.899 Other long term (current) drug therapy; Z20.822 Contact with and (suspected) exposure to COVID-19; Z71.6 Tobacco abuse counseling
CPT/HCPCS: 36415; 71045; 74177; 80048; 80053; 81001; 82947; 83605; 83690; 85025; 87040; 87635; 93005; 94640; 94644; 99285; Q9967

== ENCOUNTER 2021-02-14 09:37 | Emergency (ER) | payer MEDICARE, MEDICAID, SELFPAY ==
[2021-02-14] VITALS (7 sets, daily range): BP systolic 122–176; BP diastolic 61–84; PULSE 70–86; RESP 12–24; TEMP 36.7–37; O2SAT 96–100; BMI 30.9
--- NOTE | ~2021-02-14 | XR_ITS ---
EXAMINATION: XR CHEST CLINICAL INFORMATION: Shortness of breath COMPARISON: Previous chest x-ray 02/12/2021 TECHNIQUE: Frontal view of the chest was obtained. FINDINGS: The cardiac and mediastinal contours are stable. The lungs are clear. There is no pleural effusion or pneumothorax. There are degenerative changes of the spine and shoulder joints. XR/XR chest 1V IMPRESSION: No evidence for acute disease in the chest.
--- NOTE | 2021-02-14 09:49 | ED_ITS ---
HPI - General Adult General Chief complaint: Nausea/Vomiting/Diarrhea Stated complaint: n/v Time Seen by Provider: 02/14/21 09:42 Source: patient Mode of arrival: EMS Limitations: no limitations History of Present Illness HPI narrative: Patient with multiple complaints was seen here yesterday for abdominal pain workup negative now she is complaining of pain in the back. Patient's CT scan of the abdomen was negative. Patient is very anxious on arrival no fever no cough or shortness of breath Related Data Home Medications Medication Instructions Recorded Confirmed Flovent HFA 1 puff INHALATION BID 08/18/20 02/13/21 albuterol sulfate [Ventolin HFA] 2 puff INHALATION Q4H PRN 08/18/20 02/13/21 aspirin 81 mg PO BEDTIME 08/18/20 02/13/21 citalopram 40 mg PO QAM 08/18/20 02/13/21 ipratropium-albuterol 1 amp INHALATION QID PRN 08/18/20 02/13/21 montelukast 10 mg PO QPM 08/18/20 02/13/21 baclofen 20 mg PO DAILY PRN 10/10/20 02/13/21 clonazepam 1 mg PO BID 10/10/20 02/13/21 pravastatin 20 mg PO BEDTIME 10/10/20 02/13/21 quetiapine 50 mg PO BID 10/10/20 02/13/21 metformin 500 mg PO DAILY 11/04/20 02/13/21 acetaminophen 1 tab PO BID PRN 02/04/21 02/13/21 folic acid 1 tab PO QAM 02/04/21 02/13/21 sennosides [senna] 1 tab PO BID PRN 02/04/21 02/13/21 thiamine HCl (vitamin B1) 1 tab PO QAM 02/04/21 02/13/21 Previous Rx's Medication Instructions Recorded furosemide [Lasix] 20 mg PO DAILY #30 tab 10/21/20 metoprolol succinate 50 mg PO DAILY 30 Days #30 tab 11/08/20 Allergies Allergy/AdvReac Type Severity Reaction Status Date / Time advair Allergy Unknown Unknown Uncoded 02/12/21 20:38 paxil Allergy Unknown Unknown Uncoded 02/12/21 20:38 From PAXIL AdvReac Intermediate NAUSEA & Uncoded 02/12/21 20:38 VOMITING Review of Systems Review of Systems: Constitutional : No Weight loss, No Fever, No Chills ENT/Mouth : No sore throat, No Rhinorrhea Eyes: No Eye Pain, No Swelling Cardiovascular : No Chest Pain, no palpitations Respiratory : No Cough, No Sputum, no shortness of breath Gastrointestinal : + Nausea, +Vomiting, No Diarrhea, No abdominal Pain, no black stools Genitourinary : No Dysuria, No Urinary Frequency Musculoskeletal : No joint pain, No Myalgias, No Joint Swelling Skin : No Skin Lesions, No rash Neuro : No Weakness, No Numbness, No Dizziness, No Headache Psych : No Anxiety/Panic, No Depression Heme/Lymph: No Bruising, No Lymphadenopathy Endocrine : No Polyuria, No Polydipsia All other systems reviewed and are negative [facility] Past Medical History Medical History Acute hyponatremia Bipolar 1 disorder Bipolar I disorder Congestive heart failure COPD (chronic obstructive pulmonary disease) Coronary artery disease Diabetes Hypertension Osteoarthritis Sleep apnea Surgical History Hx of appendectomy Social History Social History Household Members: Spouse Housing: House Alcohol intake: never Smoking Status: Light tobacco smoker Tobacco Type: Cigarette Cigarettes Per Day: 5 Years Smoked: 52 Second Hand Smoke Exposure: No Use of substances other than those prescribed or required for medical reasons: No Substance Use Type: Marijuana Advance Directives: No Advance Directives Information Provided: No service: No Current occupational status: disabled and other Physical Exam Vital Signs: Vital Signs: Last Vital Signs Temp 98.6 F 02/14/21 14:38 Pulse 86 02/14/21 14:38 Resp 12 02/14/21 14:38 BP 176/71 H 02/14/21 14:38 Pulse Ox 99 02/14/21 14:38 Body Mass Index 30.9 Appearance: Alert. Oriented X3. No acute distress. Very anxious Eyes: PERRLA, No Nystagmus ENT: Pharynx normal. Oral Mucosa moist Neck: Normal inspection. Neck supple. CVS: Normal heart rate and rhythm. Pulses normal. Respiratory: No respiratory distress. Equal air entry bilateral, no wheezing/rales/rhonchi, tender left lower back Abdomen: Soft and nontender. Bowel sounds are present, no mass palpable, no CVA tenderness Skin: Skin warm and dry. Normal skin color. Normal skin turgor. Extremities: No lower extremity edema. No calf tenderness Neuro: Oriented X 3. No motor deficit. No sensory deficit.No cerebellar signs , cranial nerves II-XII intact Medical Decision Making MDM Narrative Medical decision making narrative: Patient clinically stable workup is negative for any acute pathology case discussed with patient's spouse does not want her to come home because of problems , like her to go to rehab as she has difficulty in walking and and she needs some help. Case management involved. After Ativan patient is more relaxed no active vomiting in the ER patient taking p.o. fluids lab workup is stable Lab Data Lab results reviewed: Yes I reviewed the patient's lab results. Result diagrams: 02/14/21 10:48 02/14/21 10:48 Labs: Lab Results 02/14/21 02/14/21 02/14/21 Range/Units 10:48 10:48 10:48 WBC 8.9 (4.8-10.8) X10*3/uL RBC 3.87 L (4.20-5.50) X10*6/uL Hgb 11.8 L (12.0-16.0) g/dl Hct 34.6 L (37-47) % MCV 89.4 (80-98) fL MCH 30.5 (27.0-33.0) pg MCHC 34.1 (31.0-35.0) g/dl RDW 13.8 (11.0-16.0) % Plt Count 337 (160-400) X10*3/uL MPV 8.7 L (9.4-12.3) fL Immature Gran % (Auto) 0.6 H (0.0-0.4) % Neut % (Auto) 83.7 H (45-73) % Lymph % (Auto) 10.9 L (20-40) % [place] % (Auto) 4.5 (2-11) % Eos % (Auto) 0.1 (0-4) % Baso % (Auto) 0.2 (0-2) % Lymph # (Auto) 1.0 L (1.2-4.9) X10*3/uL [place] # (Auto) 0.4 (0.1-1.2) X10*3/uL Eos # (Auto) 0.0 (0.0-0.4) X10*3/uL Baso # (Auto) 0.0 (0.0-0.2) X10*3/uL Abs Immat Gran (auto) 0.05 H (0.00-0.03) X10*3/uL Absolute Neuts (auto) 7.5 (2.0-8.3) X10*3/uL Absolute Nucleated RBC 0.000 (0.0-0.012) X10*3/uL Nucleated RBC % (auto) 0.0 (0.0-0.2) /100WBC Sodium 131 L (135-145) mmol/L Potassium 4.0 (3.3-5.1) mmol/L Chloride 97 (96-108) mmol/L Carbon Dioxide 25 (22-29) mmol/L Anion Gap 13 (12-20) BUN 14 (9-16) mg/dL Creatinine 1.19 (0.5-1.4) mg/dL Estim Creat Clear Calc 47.3 Estimated GFR 45 Random Glucose 124 H (60-115) mg/dL Calcium 9.4 D (8.4-10.2) mg/dL Troponin I High Sens 4.3 (<3.5-17.0) ng/L Urine Color Urine Appearance Urine pH (5.0-8.0) Ur Specific [place] (1.005-1.025) Urine Protein (NEG-TRACE) MG/DL Urine Glucose (UA) (NEG) MG/DL Urine Ketones (NEG) MG/DL Urine Blood (NEG) Urine Nitrite (NEG) Ur Leukocyte Esterase (NEG) Urine RBC (0) /HPF Urine WBC (0-4) /HPF Ur Squamous Epith Cells /LPF Urine Bacteria /LPF 02/14/21 Range/Units 14:38 WBC (4.8-10.8) X10*3/uL RBC (4.20-5.50) X10*6/uL Hgb (12.0-16.0) g/dl Hct (37-47) % MCV (80-98) fL MCH (27.0-33.0) pg MCHC (31.0-35.0) g/dl RDW (11.0-16.0) % Plt Count (160-400) X10*3/uL MPV (9.4-12.3) fL Immature Gran % (Auto) (0.0-0.4) % Neut % (Auto) (45-73) % Lymph % (Auto) (20-40) % [place] % (Auto) (2-11) % Eos % (Auto) (0-4) % Baso % (Auto) (0-2) % Lymph # (Auto) (1.2-4.9) X10*3/uL [place] # (Auto) (0.1-1.2) X10*3/uL Eos # (Auto) (0.0-0.4) X10*3/uL Baso # (Auto) (0.0-0.2) X10*3/uL Abs Immat Gran (auto) (0.00-0.03) X10*3/uL Absolute Neuts (auto) (2.0-8.3) X10*3/uL Absolute Nucleated RBC (0.0-0.012) X10*3/uL Nucleated RBC % (auto) (0.0-0.2) /100WBC Sodium (135-145) mmol/L Potassium (3.3-5.1) mmol/L Chloride (96-108) mmol/L Carbon Dioxide (22-29) mmol/L Anion Gap (12-20) BUN (9-16) mg/dL Creatinine (0.5-1.4) mg/dL Estim Creat Clear Calc Estimated GFR Random Glucose (60-115) mg/dL Calcium (8.4-10.2) mg/dL Troponin I High Sens (<3.5-17.0) ng/L Urine Color YELLOW Urine Appearance HAZY Urine pH 6.5 (5.0-8.0) Ur Specific [place] 1.010 (1.005-1.025) Urine Protein 1+ H (NEG-TRACE) MG/DL Urine Glucose (UA) NEG (NEG) MG/DL Urine Ketones 5 (NEG) MG/DL Urine Blood 3+ H (NEG) Urine Nitrite NEG (NEG) Ur Leukocyte Esterase NEG (NEG) Urine RBC 30-49 H (0) /HPF Urine WBC 1-4 (0-4) /HPF Ur Squamous Epith Cells 1+ /LPF Urine Bacteria NONE /LPF ECG Data Attestation: I personally reviewed and interpreted this ECG as follows: Interpretation: Normal sinus rhythm heart rate 89 beats per minute nonspecific T-wave changes QT interval 493, no acute ischemic changes Discharge Plan Discharge Clinical Impression: Anxiety Abdominal pain Qualifiers: Abdominal location: generalized Qualified Code(s): R10.84 - Generalized abdominal pain Patient Disposition: Home, Self-Care Instructions: Abdominal Pain (ED), Anxiety (ED) Additional Instructions: Drink plenty of fluids continue medication for anxiety Follow-up with your PCP Prescriptions: No Action ipratropium-albuterol 0.5 mg-3 mg(2.5 mg base)/3 mL solution for nebulization 1 amp inhalation QID PRN (Reason: Shortness Of Breath Or Wheezing) RF: 0 citalopram 40 mg tablet 40 mg PO QAM RF: 0 aspirin 81 mg tablet,delayed release (DR/EC) 81 mg PO BEDTIME RF: 0 montelukast 10 mg tablet 10 mg PO QPM RF: 0 Flovent HFA 220 mcg/actuation HFA aerosol inhaler 1 puff inhalation BID RF: 0 albuterol sulfate [Ventolin HFA] 90 mcg/actuation HFA aerosol inhaler 2 puff inhalation Q4H PRN (Reason: Shortness Of Breath Or Wheezing) RF: 0 clonazepam 1 mg Tablet 1 mg PO BID RF: 0 baclofen 20 mg Tablet 20 mg PO DAILY PRN (Reason: Pain) RF: 0 pravastatin 20 mg Tablet 20 mg PO BEDTIME RF: 0 quetiapine 50 mg Tablet 50 mg PO BID RF: 0 furosemide [Lasix] 20 mg tablet 20 mg PO DAILY Qty: 30 RF: 0 Hold Instructions: Resume on 02/13/21. hold until repeat labs in 1 week, follow up with PCP metformin 500 mg tablet 500 mg PO DAILY RF: 0 metoprolol succinate 50 mg Tablet Extended Release 24 Hr 50 mg PO DAILY 30 Days Qty: 30 RF: 0 sennosides [senna] 8.6 mg tablet 1 tab PO BID PRN (Reason: constipation) RF: 0 thiamine HCl (vitamin B1) 100 mg tablet 1 tab PO QAM RF: 0 acetaminophen 650 mg tablet extended release 1 tab PO BID PRN (Reason: pain) RF: 0 folic acid 1 mg tablet 1 tab PO QAM RF: 0
[2021-02-14] MEDS: oxyCODONE HCl Immed Release 5 MG TABLET 10 MG PO (10:20)
[2021-02-14] MEDS: LORazepam 2 MG/ML VIAL IM (10:20)
--- NOTE | 2021-02-14 10:35 | ECG_ITS ---
Test Reason : NAUSEA Blood Pressure : / mmHG Vent. Rate : 089 BPM Atrial Rate : 089 BPM P-R Int : 156 ms QRS Dur : 096 ms QT Int : 406 ms P-R-T Axes : 064 -17 039 degrees QTc Int : 493 ms Sinus rhythm with Premature supraventricular complexes RSR' or QR pattern in V1 suggests right ventricular conduction delay Nonspecific T wave abnormality Prolonged QT Abnormal ECG When compared with ECG of 12-FEB-2021 22:46, Premature supraventricular complexes are now Present Referred By: Mikel Blanco Electronically Signed By:CAMPOS KELLER MD
[2021-02-14 10:54] LABS: MANUAL DIFF FLAG NO
[2021-02-14 10:56] LABS: Basophils Percent Auto 0.2 % (0-2); Eosinophils Percent Auto 0.1 % (0-4); Hematocrit 34.6 % (37-47); Hemoglobin 11.8 g/dl (12.0-16.0); Imm Gran Abs Auto 0.05 X10*3/uL (0.00-0.03); Imm Gran Pct Auto 0.6 % (0.0-0.4); Lymphocytes Percent Auto 10.9 % (20-40); Mean Corpuscular HGB Conc 34.1 g/dl (31.0-35.0); Mean Corpuscular Hemoglobin 30.5 pg (27.0-33.0); Mean Corpuscular Volume 89.4 fL (80-98); Mean Platelet Volume 8.7 fL (9.4-12.3); Monocytes Absolute Auto 0.4 X10*3/uL (0.1-1.2); Monocytes Percent Auto 4.5 % (2-11); Neutrophils Absolute Auto 7.5 X10*3/uL (2.0-8.3); Neutrophils Percent Auto 83.7 % (45-73); Platelet Count 337 X10*3/uL (160-400); Red Blood Count 3.87 X10*6/uL (4.20-5.50); Red Cell Distribution Width 13.8 % (11.0-16.0); White Blood Count 8.9 X10*3/uL (4.8-10.8)
[2021-02-14 11:27] LABS: Anion Gap 13 (12-20); Blood Urea Nitrogen 14 mg/dL (9-16); Calcium 9.4 mg/dL (8.4-10.2); Carbon Dioxide 25 mmol/L (22-29); Chloride 97 mmol/L (96-108); Creatinine Clr Calc Pharmacy 47.3; Estimated Glomerular Filt Rate 45; Glucose Random 124 mg/dL (60-115); Sodium 131 mmol/L (135-145)
[2021-02-14 11:30] LABS: Troponin-I High Sensitivity 4.3 ng/L (<3.5-17.0)
--- NOTE | 2021-02-14 13:02 | ED_ITS ---
HPI - General Adult General Chief complaint: Nausea/Vomiting/Diarrhea Stated complaint: n/v Time Seen by Provider: 02/14/21 09:42 Source: patient Mode of arrival: EMS Limitations: no limitations History of Present Illness HPI narrative: Patient was seen here yesterday for abdominal pain workup was negative including CT scan of the abdomen now comes here by EMS for nonspecific complaints complaining of pain in the left upper back belly pain and nausea very anxious on arrival try to vomit gagging herself Related Data Home Medications Medication Instructions Recorded Confirmed Flovent HFA 1 puff INHALATION BID 08/18/20 02/13/21 albuterol sulfate [Ventolin HFA] 2 puff INHALATION Q4H PRN 08/18/20 02/13/21 aspirin 81 mg PO BEDTIME 08/18/20 02/13/21 citalopram 40 mg PO QAM 08/18/20 02/13/21 ipratropium-albuterol 1 amp INHALATION QID PRN 08/18/20 02/13/21 montelukast 10 mg PO QPM 08/18/20 02/13/21 baclofen 20 mg PO DAILY PRN 10/10/20 02/13/21 clonazepam 1 mg PO BID 10/10/20 02/13/21 pravastatin 20 mg PO BEDTIME 10/10/20 02/13/21 quetiapine 50 mg PO BID 10/10/20 02/13/21 metformin 500 mg PO DAILY 11/04/20 02/13/21 acetaminophen 1 tab PO BID PRN 02/04/21 02/13/21 folic acid 1 tab PO QAM 02/04/21 02/13/21 sennosides [senna] 1 tab PO BID PRN 02/04/21 02/13/21 thiamine HCl (vitamin B1) 1 tab PO QAM 02/04/21 02/13/21 Previous Rx's Medication Instructions Recorded furosemide [Lasix] 20 mg PO DAILY #30 tab 10/21/20 metoprolol succinate 50 mg PO DAILY 30 Days #30 tab 11/08/20 Allergies Allergy/AdvReac Type Severity Reaction Status Date / Time advair Allergy Unknown Unknown Uncoded 02/12/21 20:38 paxil Allergy Unknown Unknown Uncoded 02/12/21 20:38 From PAXIL AdvReac Intermediate NAUSEA & Uncoded 02/12/21 20:38 VOMITING Review of Systems Review of Systems: Constitutional : No Weight loss, No Fever, No Chills ENT/Mouth : No sore throat, No Rhinorrhea Eyes: No Eye Pain, No Swelling Cardiovascular : No Chest Pain, no palpitations Respiratory : No Cough, No Sputum, no shortness of breath Gastrointestinal : + Nausea, + Vomiting, No Diarrhea, No abdominal Pain, no black stools Genitourinary : No Dysuria, No Urinary Frequency Musculoskeletal : No joint pain, No Myalgias, No Joint Swelling Skin : No Skin Lesions, No rash Neuro : No Weakness, No Numbness, No Dizziness, No Headache Psych : + Anxiety/Panic, No Depression Heme/Lymph: No Bruising, No Lymphadenopathy Endocrine : No Polyuria, No Polydipsia All other systems reviewed and are negative [facility] Past Medical History Medical History Acute hyponatremia Bipolar 1 disorder Bipolar I disorder Congestive heart failure COPD (chronic obstructive pulmonary disease) Coronary artery disease Diabetes Hypertension Osteoarthritis Sleep apnea Surgical History Hx of appendectomy Social History Social History Household Members: Spouse Housing: House Alcohol intake: never Smoking Status: Light tobacco smoker Tobacco Type: Cigarette Cigarettes Per Day: 5 Years Smoked: 52 Second Hand Smoke Exposure: No Use of substances other than those prescribed or required for medical reasons: No Substance Use Type: Marijuana Advance Directives: No Advance Directives Information Provided: No service: No Current occupational status: disabled and other Physical Exam Vital Signs: Vital Signs: Last Vital Signs Temp 98.6 F 02/14/21 14:38 Pulse 86 02/14/21 14:38 Resp 12 02/14/21 14:38 BP 176/71 H 02/14/21 14:38 Pulse Ox 99 02/14/21 14:38 Body Mass Index 30.9 Appearance: Alert. Oriented X3. No acute distress. Very anxious trying to gag and vomit Eyes: PERRLA, No Nystagmus ENT: Pharynx normal. Oral Mucosa moist Neck: Normal inspection. Neck supple. CVS: Normal heart rate and rhythm. Pulses normal. Respiratory: No respiratory distress. Equal air entry bilateral, no wheezing/rales/rhonchi Abdomen: Soft and mild epigastric tenderness. Bowel sounds are present, no mass palpable, no CVA tenderness Skin: Skin warm and dry. Normal skin color. Normal skin turgor. Extremities: No lower extremity edema. No calf tenderness Neuro: Oriented X 3. No motor deficit. No sensory deficit.No cerebellar signs , cranial nerves II-XII intact Medical Decision Making Lab Data Result diagrams: 02/14/21 10:48 02/14/21 10:48 Labs: Lab Results 02/14/21 02/14/21 02/14/21 Range/Units 10:48 10:48 10:48 WBC 8.9 (4.8-10.8) X10*3/uL RBC 3.87 L (4.20-5.50) X10*6/uL Hgb 11.8 L (12.0-16.0) g/dl Hct 34.6 L (37-47) % MCV 89.4 (80-98) fL MCH 30.5 (27.0-33.0) pg MCHC 34.1 (31.0-35.0) g/dl RDW 13.8 (11.0-16.0) % Plt Count 337 (160-400) X10*3/uL MPV 8.7 L (9.4-12.3) fL Immature Gran % (Auto) 0.6 H (0.0-0.4) % Neut % (Auto) 83.7 H (45-73) % Lymph % (Auto) 10.9 L (20-40) % [place] % (Auto) 4.5 (2-11) % Eos % (Auto) 0.1 (0-4) % Baso % (Auto) 0.2 (0-2) % Lymph # (Auto) 1.0 L (1.2-4.9) X10*3/uL [place] # (Auto) 0.4 (0.1-1.2) X10*3/uL Eos # (Auto) 0.0 (0.0-0.4) X10*3/uL Baso # (Auto) 0.0 (0.0-0.2) X10*3/uL Abs Immat Gran (auto) 0.05 H (0.00-0.03) X10*3/uL Absolute Neuts (auto) 7.5 (2.0-8.3) X10*3/uL Absolute Nucleated RBC 0.000 (0.0-0.012) X10*3/uL Nucleated RBC % (auto) 0.0 (0.0-0.2) /100WBC Sodium 131 L (135-145) mmol/L Potassium 4.0 (3.3-5.1) mmol/L Chloride 97 (96-108) mmol/L Carbon Dioxide 25 (22-29) mmol/L Anion Gap 13 (12-20) BUN 14 (9-16) mg/dL Creatinine 1.19 (0.5-1.4) mg/dL Estim Creat Clear Calc 47.3 Estimated GFR 45 Random Glucose 124 H (60-115) mg/dL Calcium 9.4 D (8.4-10.2) mg/dL Troponin I High Sens 4.3 (<3.5-17.0) ng/L Urine Color Urine Appearance Urine pH (5.0-8.0) Ur Specific [place] (1.005-1.025) Urine Protein (NEG-TRACE) MG/DL Urine Glucose (UA) (NEG) MG/DL Urine Ketones (NEG) MG/DL Urine Blood (NEG) Urine Nitrite (NEG) Ur Leukocyte Esterase (NEG) Urine RBC (0) /HPF Urine WBC (0-4) /HPF Ur Squamous Epith Cells /LPF Urine Bacteria /LPF 02/14/21 Range/Units 14:38 WBC (4.8-10.8) X10*3/uL RBC (4.20-5.50) X10*6/uL Hgb (12.0-16.0) g/dl Hct (37-47) % MCV (80-98) fL MCH (27.0-33.0) pg MCHC (31.0-35.0) g/dl RDW (11.0-16.0) % Plt Count (160-400) X10*3/uL MPV (9.4-12.3) fL Immature Gran % (Auto) (0.0-0.4) % Neut % (Auto) (45-73) % Lymph % (Auto) (20-40) % [place] % (Auto) (2-11) % Eos % (Auto) (0-4) % Baso % (Auto) (0-2) % Lymph # (Auto) (1.2-4.9) X10*3/uL [place] # (Auto) (0.1-1.2) X10*3/uL Eos # (Auto) (0.0-0.4) X10*3/uL Baso # (Auto) (0.0-0.2) X10*3/uL Abs Immat Gran (auto) (0.00-0.03) X10*3/uL Absolute Neuts (auto) (2.0-8.3) X10*3/uL Absolute Nucleated RBC (0.0-0.012) X10*3/uL Nucleated RBC % (auto) (0.0-0.2) /100WBC Sodium (135-145) mmol/L Potassium (3.3-5.1) mmol/L Chloride (96-108) mmol/L Carbon Dioxide (22-29) mmol/L Anion Gap (12-20) BUN (9-16) mg/dL Creatinine (0.5-1.4) mg/dL Estim Creat Clear Calc Estimated GFR Random Glucose (60-115) mg/dL Calcium (8.4-10.2) mg/dL Troponin I High Sens (<3.5-17.0) ng/L Urine Color YELLOW Urine Appearance HAZY Urine pH 6.5 (5.0-8.0) Ur Specific [place] 1.010 (1.005-1.025) Urine Protein 1+ H (NEG-TRACE) MG/DL Urine Glucose (UA) NEG (NEG) MG/DL Urine Ketones 5 (NEG) MG/DL Urine Blood 3+ H (NEG) Urine Nitrite NEG (NEG) Ur Leukocyte Esterase NEG (NEG) Urine RBC 30-49 H (0) /HPF Urine WBC 1-4 (0-4) /HPF Ur Squamous Epith Cells 1+ /LPF Urine Bacteria NONE /LPF Discharge Plan Discharge Clinical Impression: Anxiety Abdominal pain Qualifiers: Abdominal location: generalized Qualified Code(s): R10.84 - Generalized abdominal pain Patient Disposition: Home, Self-Care Instructions: Abdominal Pain (ED), Anxiety (ED) Additional Instructions: Drink plenty of fluids continue medication for anxiety Follow-up with your PCP Prescriptions: No Action ipratropium-albuterol 0.5 mg-3 mg(2.5 mg base)/3 mL solution for nebulization 1 amp inhalation QID PRN (Reason: Shortness Of Breath Or Wheezing) RF: 0 citalopram 40 mg tablet 40 mg PO QAM RF: 0 aspirin 81 mg tablet,delayed release (DR/EC) 81 mg PO BEDTIME RF: 0 montelukast 10 mg tablet 10 mg PO QPM RF: 0 Flovent HFA 220 mcg/actuation HFA aerosol inhaler 1 puff inhalation BID RF: 0 albuterol sulfate [Ventolin HFA] 90 mcg/actuation HFA aerosol inhaler 2 puff inhalation Q4H PRN (Reason: Shortness Of Breath Or Wheezing) RF: 0 clonazepam 1 mg Tablet 1 mg PO BID RF: 0 baclofen 20 mg Tablet 20 mg PO DAILY PRN (Reason: Pain) RF: 0 pravastatin 20 mg Tablet 20 mg PO BEDTIME RF: 0 quetiapine 50 mg Tablet 50 mg PO BID RF: 0 furosemide [Lasix] 20 mg tablet 20 mg PO DAILY Qty: 30 RF: 0 Hold Instructions: Resume on 02/13/21. hold until repeat labs in 1 week, follow up with PCP metformin 500 mg tablet 500 mg PO DAILY RF: 0 metoprolol succinate 50 mg Tablet Extended Release 24 Hr 50 mg PO DAILY 30 Days Qty: 30 RF: 0 sennosides [senna] 8.6 mg tablet 1 tab PO BID PRN (Reason: constipation) RF: 0 thiamine HCl (vitamin B1) 100 mg tablet 1 tab PO QAM RF: 0 acetaminophen 650 mg tablet extended release 1 tab PO BID PRN (Reason: pain) RF: 0 folic acid 1 mg tablet 1 tab PO QAM RF: 0
--- NOTE | 2021-02-14 13:23 | PC.NURSE ---
pt's (samantha, ) called [facility] [place] for an update on pt and states that it is not safe for the pt to go home because she is too weak and he is requesting rehab for the pt. and case management aware. pt is sleeping resp even and unlabored.
--- NOTE | 2021-02-14 13:50 | MHC.CM.ED ---
Received case management consult from Dr Blanco. Patient was in the ER for abd pain on 02/13 and returned today. Work up essentially negative. T/W spoke with patient's sig other/HCP Jaunjo via telephone. Juanjo feels patient is too weak to come home and is requesting STR for 2 weeks. Patient is well known to case management department. In the past, when Juanjo has wanted short term rehab, patient has been difficult to place and Juanjo has taken patient home at her request. Juanjo verbalizes these were not good decisions and feels patient is too weak to come home. Referral is being broadcasted because patient has been difficult to place in the past. Cora Diaz manager of case management made aware via telephone at [phone]. Patient received her first Moderna vaccine on 02/03 and is due for her 2nd on 03/06. Continue to monitor for d/c needs.
[2021-02-14 14:51] LABS: Glucose Urine UA NEG (NEG); Leukocyte Esterase Urine NEG (NEG); Nitrite Urine NEG (NEG); PH 6.5 (5.0-8.0); Urine Blood 3+ (NEG); Urine Ketones 5 MG/DL (NEG); Urine Protein 1+ MG/DL (NEG-TRACE)
[2021-02-14 14:52] LABS: Appearance Urine HAZY; Color Urine YELLOW
[2021-02-14 14:58] LABS: RBC Urine 30-49 /HPF (0); Squamous Epithelial Cell Urine 1+ /LPF
--- NOTE | 2021-02-14 15:05 | MHC.CM.ED ---
[facility] is able to offer a bed. Patient can leave here at 4pm. [facility] booked for 4pm. Med nec on chart. Patient, Juanjo vera other/HCP, Namita KIRK and Dr Blanco aware. Emily of [facility] aware. Continue to monitor for d/c needs.
--- NOTE | 2021-02-14 16:02 | PC.NURSE ---
assumed care of pt. pt resting in stretcher in nad. pt awaiting for pt eval/case mgt in am. will continue to monitor pt.
== END 2021-02-14 17:21 | disposition home or self-care (01) ==
PROVIDERS: Emergency Provider Internal Medicine
DX: F43.0 Acute stress reaction (principal); R10.84 Generalized abdominal pain; R11.2 Nausea with vomiting, unspecified; R19.7 Diarrhea, unspecified; F41.1 Generalized anxiety disorder; F12.90 Cannabis use, unspecified, uncomplicated; F17.210 Nicotine dependence, cigarettes, uncomplicated; Z79.899 Other long term (current) drug therapy; Z71.6 Tobacco abuse counseling
CPT/HCPCS: 36415; 71045; 80048; 81001; 84484; 85025; 93005; 96372; 97162; 99285; J2060

== ENCOUNTER 2021-02-15 06:08 | Outpatient (REF) | payer MEDICARE, MEDICAID, SELFPAY ==
[2021-02-15 06:30] LABS: Hemoglobin 11.7 g/dl (12.0-16.0); Mean Corpuscular HGB Conc 34.4 g/dl (31.0-35.0); Mean Corpuscular Volume 90.2 fL (80-98); Mean Platelet Volume 8.8 fL (9.4-12.3); Platelet Count 359 X10*3/uL (160-400); Red Blood Count 3.77 X10*6/uL (4.20-5.50); White Blood Count 7.2 X10*3/uL (4.8-10.8)
[2021-02-15 07:04] LABS: Alanine Aminotransferase 12 U/L (0-31); Albumin Level 3.6 g/dL (3.5-5.0); Alkaline Phosphatase 82 U/L (39-117); Anion Gap 13 (12-20); Aspartate Amino Transferase 12 U/L (5-31); Bilirubin Total 0.4 mg/dL (0.0-1.0); Blood Urea Nitrogen 13 mg/dL (9-16); Calcium 9.6 mg/dL (8.4-10.2); Carbon Dioxide 27 mmol/L (22-29); Chloride 96 mmol/L (96-108); Estimated Glomerular Filt Rate 50; Glucose Random 109 mg/dL (60-115); Potassium 4.1 mmol/L (3.3-5.1); Sodium 132 mmol/L (135-145); Total Protein 6.7 g/dL (6.5-8.0)
== END 2021-02-15 06:09 | disposition home or self-care (01) ==
LOC: HO.MMNH1L 06:08
PROVIDERS: Visit Provider Family Medicine
DX: I10 Essential (primary) hypertension (principal); E11.9 Type 2 diabetes mellitus without complications; J44.9 Chronic obstructive pulmonary disease, unspecified
CPT/HCPCS: 36415; 80053; 85027

== ENCOUNTER 2021-02-17 | Outpatient (REF) | payer SELFPAY ==
[2021-02-17 06:52] LABS: Hemoglobin 11.3 g/dl (12.0-16.0); Mean Corpuscular HGB Conc 33.2 g/dl (31.0-35.0); Mean Corpuscular Volume 90.2 fL (80-98); Mean Platelet Volume 9.3 fL (9.4-12.3); Platelet Count 409 X10*3/uL (160-400); Red Blood Count 3.77 X10*6/uL (4.20-5.50); Red Cell Distribution Width 13.8 % (11.0-16.0); White Blood Count 6.6 X10*3/uL (4.8-10.8)
[2021-02-17 07:39] LABS: Anion Gap 14 (12-20); Blood Urea Nitrogen 16 mg/dL (9-16); Calcium 8.7 mg/dL (8.4-10.2); Carbon Dioxide 25 mmol/L (22-29); Chloride 96 mmol/L (96-108); Estimated Glomerular Filt Rate 37; Glucose Random 101 mg/dL (60-115); Potassium 4.1 mmol/L (3.3-5.1); Sodium 131 mmol/L (135-145)
== END 2021-02-17 00:01 | disposition home or self-care (01) ==
LOC: HO.MMNH1L
PROVIDERS: Visit Provider Family Medicine
DX: I10 Essential (primary) hypertension (principal); E11.9 Type 2 diabetes mellitus without complications; J44.9 Chronic obstructive pulmonary disease, unspecified
CPT/HCPCS: 36415; 80048; 85027

== ENCOUNTER 2021-02-25 00:31 | Outpatient (REF) | payer MEDICARE, MEDICAID, SELFPAY ==
[2021-02-25 07:19] LABS: Hematocrit 31.9 % (37-47); Hemoglobin 10.3 g/dl (12.0-16.0); Mean Corpuscular HGB Conc 32.3 g/dl (31.0-35.0); Mean Corpuscular Hemoglobin 30.1 pg (27.0-33.0); Mean Corpuscular Volume 93.3 fL (80-98); Mean Platelet Volume 9.3 fL (9.4-12.3); Platelet Count 385 X10*3/uL (160-400); Red Blood Count 3.42 X10*6/uL (4.20-5.50); Red Cell Distribution Width 14.2 % (11.0-16.0); White Blood Count 5.7 X10*3/uL (4.8-10.8)
[2021-02-25 07:35] LABS: Anion Gap 11 (12-20); Blood Urea Nitrogen 17 mg/dL (9-16); Calcium 9.1 mg/dL (8.4-10.2); Carbon Dioxide 31 mmol/L (22-29); Chloride 102 mmol/L (96-108); Estimated Glomerular Filt Rate 42; Glucose Random 100 mg/dL (60-115); Potassium 4.4 mmol/L (3.3-5.1); Sodium 140 mmol/L (135-145)
== END 2021-02-25 00:32 | disposition home or self-care (01) ==
LOC: HO.MMNH1L 00:31
PROVIDERS: Visit Provider Family Medicine
DX: I10 Essential (primary) hypertension (principal); E11.9 Type 2 diabetes mellitus without complications; J44.9 Chronic obstructive pulmonary disease, unspecified
CPT/HCPCS: 36415; 80048; 85027

== ENCOUNTER 2021-03-03 00:55 | Outpatient (REF) | payer MEDICARE, MEDICAID, SELFPAY | END 2021-03-03 00:56 | disposition home or self-care (01) | LOC: HO.MMNH1L 00:55 | PROVIDERS: Visit Provider Family Medicine | DX: Z13.89 Encounter for screening for other disorder (principal) ==

== ENCOUNTER 2021-03-05 21:13 | Emergency (ER) | payer MEDICARE, MEDICAID, SELFPAY ==
--- NOTE | ~2021-03-05 | XR_ITS ---
EXAMINATION: XR SHOULDER, RIGHT CLINICAL INFORMATION: Fall COMPARISON: 11/03/2020 TECHNIQUE: Three views of the right shoulder. FINDINGS: Glenohumeral alignment is anatomic. There is redemonstration of severe degenerative changes of the glenohumeral joint including joint space narrowing, spurring, and subchondral cyst formation. No acute fracture is seen. The acromioclavicular joint is intact with mild degenerative change. XR/XR shoulder RT min 2V IMPRESSION: No acute findings identified. Redemonstrated severe degenerative changes of the glenohumeral joint.
[2021-03-05 21:37] VITALS: BP 101/42; PULSE 74; RESP 18; TEMP 36.6; O2SAT 97; BMI 31.8
--- NOTE | 2021-03-05 22:49 | ED.GENADULT ---
HPI - General Adult General Chief complaint: General Medical Stated complaint: FALL,AMS Time Seen by Provider: 03/05/21 22:31 History of Present Illness HPI narrative: Patient is a 65-year-old female with a history of alcohol abuse. Patient slide down. Hit her right shoulder. No fever no chills. No coughing or congestion or upper respiratory symptoms. No diaphoresis. Patient is from home. No chest pain or shortness of breath no diaphoresis. Positive EtOH today. Patient denies any head trauma. Related Data Home Medications Medication Instructions Recorded Confirmed Flovent HFA 1 puff INHALATION BID 08/18/20 02/13/21 albuterol sulfate [Ventolin HFA] 2 puff INHALATION Q4H PRN 08/18/20 02/13/21 aspirin 81 mg PO BEDTIME 08/18/20 02/13/21 citalopram 40 mg PO QAM 08/18/20 02/13/21 ipratropium-albuterol 1 amp INHALATION QID PRN 08/18/20 02/13/21 montelukast 10 mg PO QPM 08/18/20 02/13/21 baclofen 20 mg PO DAILY PRN 10/10/20 02/13/21 clonazepam 1 mg PO BID 10/10/20 02/13/21 pravastatin 20 mg PO BEDTIME 10/10/20 02/13/21 quetiapine 50 mg PO BID 10/10/20 02/13/21 metformin 500 mg PO DAILY 11/04/20 02/13/21 acetaminophen 1 tab PO BID PRN 02/04/21 02/13/21 folic acid 1 tab PO QAM 02/04/21 02/13/21 sennosides [senna] 1 tab PO BID PRN 02/04/21 02/13/21 thiamine HCl (vitamin B1) 1 tab PO QAM 02/04/21 02/13/21 Previous Rx's Medication Instructions Recorded furosemide [Lasix] 20 mg PO DAILY #30 tab 10/21/20 metoprolol succinate 50 mg PO DAILY 30 Days #30 tab 11/08/20 Allergies Allergy/AdvReac Type Severity Reaction Status Date / Time advair Allergy Unknown Unknown Uncoded 02/12/21 20:38 paxil Allergy Unknown Unknown Uncoded 02/12/21 20:38 From PAXIL AdvReac Intermediate NAUSEA & Uncoded 02/12/21 20:38 VOMITING Review of Systems Review of Systems: Constitutional: No Weight loss, No Fever, No Chills, No Night Sweats, No Fatigue, No Malaise ENT/Mouth: No Hearing loss, No Ear Pain, No Nasal Congestion, No Sinus Pain, No Hoarseness, No sore throat, No Rhinorrhea, No Swallowing Difficulty Eyes: No Eye Pain, No Swelling, No Redness, No Foreign Body, No Discharge, No Vision Changes Cardiovascular: No Chest Pain, No SOB, No Dyspnea on Exertion, No Orthopnea, No Edema, No Palpitations Respiratory: No Cough, No Sputum, No Wheezing, No Smoke Exposure, No Dyspnea Gastrointestinal: No Nausea, No Vomiting, No Diarrhea, No Constipation, No abdominal Pain, No Hematochezia, No Melena Genitourinary: no irregular bleeding, No Dysuria, No Urinary Frequency, No Hematuria, No Urinary Incontinence, No Urgency, No Flank Pain, No Urinary Flow Changes, No Hesitancy Musculoskeletal: No joint pain, No Myalgias, No Joint Swelling Skin: No Skin Lesions, No rash Neuro: No Weakness, No Numbness, No Paresthesias, No Loss of Consciousness, No Dizziness, No Headache Psych: No Anxiety/Panic, No Depression, No SI/HI/AH/VH, No Social Issues, Heme/Lymph: No Bruising, No Bleeding,No Lymphadenopathy Endocrine: No Polyuria, No Polydipsia, No Temperature Intolerance COUNT INCLUDES THE [facility] Past Medical History Attestation statement: The following information was validated with the patient. Medical History Acute hyponatremia Bipolar 1 disorder Bipolar I disorder Congestive heart failure COPD (chronic obstructive pulmonary disease) Coronary artery disease Diabetes Hypertension Osteoarthritis Sleep apnea Surgical History Hx of appendectomy Social History Social History Household Members: Spouse Housing: House Do you presently have visiting nurse or other home services: Yes ([employer], EVERY DAY/ RN, 2 X WEEK) Unable to assess alcohol history related to: Unable to respond Alcohol intake: never Cigarettes Per Day: 5 Years Smoked: 52 Second Hand Smoke Exposure: No Substance Use Type: Marijuana Advance Directives: No Advance Directives Information Provided: Yes service: No Current occupational status: disabled and other Physical Exam Vital Signs: Vital Signs: Last Vital Signs Temp 97.9 F 03/05/21 21:37 Pulse 74 03/05/21 21:37 Resp 18 03/05/21 21:37 BP 101/42 L 03/05/21 21:37 Pulse Ox 97 03/05/21 21:37 Body Mass Index 31.8 Appearance: Alert. Oriented X3. No acute distress. Eyes: Pupils equal, round and reactive to light. ENT: Pharynx normal. Neck: Normal inspection. Neck supple. No lymph nodes noted. No crepitus CVS: Normal heart rate and rhythm. Pulses normal. Normal S1 and S2 Respiratory: No respiratory distress. Breath sounds normal. No Wheezing. No rales Abdomen: Soft and nontender. No rigidity. No distention. good BS x4 Skin: Skin warm and dry. Normal skin color. Normal skin turgor. Extremities: No lower extremity edema. Neurovascular intact to all extremities. No Lacerations. No Rash Neuro: Oriented X 3. No motor deficit. No sensory deficit. Moving all extermities. No slurred speech Medical Decision Making MDM Narrative Medical decision making narrative: Patient's x-ray did not show any acute fractures. Alcohol was approximately 145. Now patient is clinically sober. Will discharge patient home. In stable condition. Lab Data Result diagrams: 03/05/21 22:59 03/05/21 22:59 Labs: Lab Results 03/05/21 03/05/21 03/05/21 Range/Units 22:59 22:59 22:59 WBC 5.4 (4.8-10.8) X10*3/uL RBC 3.32 L (4.20-5.50) X10*6/uL Hgb 10.2 L (12.0-16.0) g/dl Hct 30.4 L (37-47) % MCV 91.6 (80-98) fL MCH 30.7 (27.0-33.0) pg MCHC 33.6 (31.0-35.0) g/dl RDW 14.3 (11.0-16.0) % Plt Count 225 D (160-400) X10*3/uL MPV 8.6 L (9.4-12.3) fL Immature Gran % (Auto) 1.9 H (0.0-0.4) % Neut % (Auto) 42.6 L (45-73) % Lymph % (Auto) 42.6 H (20-40) % [place] % (Auto) 9.1 (2-11) % Eos % (Auto) 3.2 (0-4) % Baso % (Auto) 0.6 (0-2) % Lymph # (Auto) 2.3 (1.2-4.9) X10*3/uL [place] # (Auto) 0.5 (0.1-1.2) X10*3/uL Eos # (Auto) 0.2 (0.0-0.4) X10*3/uL Baso # (Auto) 0.0 (0.0-0.2) X10*3/uL Abs Immat Gran (auto) 0.10 H (0.00-0.03) X10*3/uL Absolute Neuts (auto) 2.3 (2.0-8.3) X10*3/uL Absolute Nucleated RBC 0.000 (0.0-0.012) X10*3/uL Nucleated RBC % (auto) 0.0 (0.0-0.2) /100WBC Sodium 128 L (135-145) mmol/L Potassium 4.4 (3.3-5.1) mmol/L Chloride 100 (96-108) mmol/L Carbon Dioxide 19 L (22-29) mmol/L Anion Gap 13 (12-20) BUN 20 H (9-16) mg/dL Creatinine 1.24 (0.5-1.4) mg/dL Estim Creat Clear Calc 44.5 Estimated GFR 43 Random Glucose 103 (60-115) mg/dL Calcium 8.4 D (8.4-10.2) mg/dL Ethyl Alcohol 145 mg/dL Discharge Plan Discharge Clinical Impression: Alcohol use disorder, Contusion Patient Disposition: Home, Self-Care Instructions: Alcohol Intoxication (ED), Contusion in Adults (ED) Prescriptions: No [facility] ipratropium-albuterol 0.5 mg-3 mg(2.5 mg base)/3 mL solution for nebulization 1 amp inhalation QID PRN (Reason: Shortness Of Breath Or Wheezing) RF: 0 citalopram 40 mg tablet 40 mg PO QAM RF: 0 aspirin 81 mg tablet,delayed release (DR/EC) 81 mg PO BEDTIME RF: 0 montelukast 10 mg tablet 10 mg PO QPM RF: 0 Flovent HFA 220 mcg/actuation HFA aerosol inhaler 1 puff inhalation BID RF: 0 albuterol sulfate [Ventolin HFA] 90 mcg/actuation HFA aerosol inhaler 2 puff inhalation Q4H PRN (Reason: Shortness Of Breath Or Wheezing) RF: 0 clonazepam 1 mg Tablet 1 mg PO BID RF: 0 baclofen 20 mg Tablet 20 mg PO DAILY PRN (Reason: Pain) RF: 0 pravastatin 20 mg Tablet 20 mg PO BEDTIME RF: 0 quetiapine 50 mg Tablet 50 mg PO BID RF: 0 furosemide [Lasix] 20 mg tablet 20 mg PO DAILY Qty: 30 RF: 0 Hold Instructions: Resume on 02/13/21. hold until repeat labs in 1 week, follow up with PCP metformin 500 mg tablet 500 mg PO DAILY RF: 0 metoprolol succinate 50 mg Tablet Extended Release 24 Hr 50 mg PO DAILY 30 Days Qty: 30 RF: 0 sennosides [senna] 8.6 mg tablet 1 tab PO BID PRN (Reason: constipation) RF: 0 thiamine HCl (vitamin B1) 100 mg tablet 1 tab PO QAM RF: 0 acetaminophen 650 mg tablet extended release 1 tab PO BID PRN (Reason: pain) RF: 0 folic acid 1 mg tablet 1 tab PO QAM RF: 0 Referrals: Name,MD Ryder [Primary Care Provider] - 2 days Print Language: Portuguese
[2021-03-05 23:03] LABS: MANUAL DIFF FLAG NO
[2021-03-05 23:05] LABS: Basophils Percent Auto 0.6 % (0-2); Eosinophils Absolute Auto 0.2 X10*3/uL (0.0-0.4); Eosinophils Percent Auto 3.2 % (0-4); Hematocrit 30.4 % (37-47); Hemoglobin 10.2 g/dl (12.0-16.0); Imm Gran Pct Auto 1.9 % (0.0-0.4); Lymphocytes Absolute Auto 2.3 X10*3/uL (1.2-4.9); Lymphocytes Percent Auto 42.6 % (20-40); Mean Corpuscular HGB Conc 33.6 g/dl (31.0-35.0); Mean Corpuscular Hemoglobin 30.7 pg (27.0-33.0); Mean Corpuscular Volume 91.6 fL (80-98); Mean Platelet Volume 8.6 fL (9.4-12.3); Monocytes Absolute Auto 0.5 X10*3/uL (0.1-1.2); Monocytes Percent Auto 9.1 % (2-11); Neutrophils Absolute Auto 2.3 X10*3/uL (2.0-8.3); Neutrophils Percent Auto 42.6 % (45-73); Platelet Count 225 X10*3/uL (160-400); Red Blood Count 3.32 X10*6/uL (4.20-5.50); Red Cell Distribution Width 14.3 % (11.0-16.0); White Blood Count 5.4 X10*3/uL (4.8-10.8)
[2021-03-06] MEDS: 0.9 % Sodium Chloride 500 ML 999 ML IV (00:06)
[2021-03-06 01:27] LABS: Ethanol 145 mg/dL
[2021-03-06 01:35] LABS: Anion Gap 13 (12-20); Blood Urea Nitrogen 20 mg/dL (9-16); Calcium 8.4 mg/dL (8.4-10.2); Carbon Dioxide 19 mmol/L (22-29); Chloride 100 mmol/L (96-108); Creatinine Clr Calc Pharmacy 44.5; Estimated Glomerular Filt Rate 43; Glucose Random 103 mg/dL (60-115); Potassium 4.4 mmol/L (3.3-5.1); Sodium 128 mmol/L (135-145)
[2021-03-06 02:32] VITALS: BP 111/70; PULSE 88; O2SAT 98
== END 2021-03-06 03:30 | disposition home or self-care (01) ==
PROVIDERS: Emergency Provider Emergency Medicine Emergency Medical Services; PCP Internal Medicine Geriatric Medicine
DX: F10.10 Alcohol abuse, uncomplicated (principal); Y90.6 Blood alcohol level of 120-199 mg/100 ml; S40.011A Contusion of right shoulder, initial encounter; X58.XXXA Exposure to other specified factors, initial encounter; Y93.9 Activity, unspecified; Y92.9 Unspecified place or not applicable; Y99.9 Unspecified external cause status
CPT/HCPCS: 36415; 73030; 80048; 82077; 85025; 96360; 99284

== ENCOUNTER 2021-03-25 20:08 | Inpatient (IN) | payer MEDICARE, MEDICAID, SELFPAY ==
--- NOTE | ~2021-03-25 | XR_ITS ---
EXAMINATION: XR CHEST CLINICAL INFORMATION: Shortness of breath. COMPARISON: 02/14/2021 TECHNIQUE: Frontal view of the chest was obtained. FINDINGS: Cardiac leads overlie the chest. Cardiac and mediastinal contours are normal. Pulmonary vasculature is unremarkable. No consolidation, pneumothorax, or pleural effusion. No acute osseous findings. Osteoarthritis is present in the acromioclavicular and glenohumeral joints. XR/XR chest 1V IMPRESSION: No acute pulmonary findings.
--- NOTE | ~2021-03-25 | CT_ITS ---
EXAMINATION: CT HEAD WITHOUT CONTRAST CLINICAL INFORMATION: Confusion COMPARISON: 12/20/2020 TECHNIQUE: Contiguous axial imaging was performed from the skull base to vertex without intravenous administration of contrast. This CT examination was performed using dose optimization techniques as appropriate, variously including the following: *Automated exposure control *Adjustment of mA and/or kV according to patient size (this includes techniques or standardized protocols for targeted exams where dose is matched to indication/reason for exam; i.e. extremities or head) *Use of iterative reconstruction technique DLP: 1607 mGy-cm FINDINGS: There is no evidence of acute intracranial hemorrhage or territorial infarction. No abnormal mass effect or midline shift is seen. Fitch to white matter differentiation is well preserved. No extra-axial fluid collections are identified. The ventricles are normal in size. There is no abnormal attenuation within the brain parenchyma. Hyperostosis front hallux interna. The osseous structures and soft tissues are otherwise normal. Small polypoid focus of mucosal thickening in the right maxillary sinus. Minimal pneumatization of the mastoid air cells with chronic opacification, unchanged from prior. CT/CT head/brain wo con IMPRESSION: No acute intracranial pathology.
[2021-03-25 20:12] VITALS: BP 136/97; PULSE 60; O2SAT 100
[2021-03-25 20:25] VITALS: BP 101/68; PULSE 66; RESP 19; TEMP 36.9; O2SAT 96; BMI 39.8
--- NOTE | 2021-03-25 23:06 | ED.SOB ---
HPI - SOB/Dyspnea General Chief Complaint: Anxiety Stated Complaint: ANXIETY, DIFF BREATHING Time Seen by Provider: 03/25/21 22:56 History of Present Illness HPI Narrative: patient with history of hypotonic hyponatremia anxiety alcohol use history of SAGAR and anxiety and depression came by ambulance for increased confusion and sleepiness patient been here few times were similar situation last one was last week with alcohol intoxication Related Data Home Medications Medication Instructions Recorded Confirmed Flovent HFA 1 puff INHALATION BID 08/18/20 03/26/21 albuterol sulfate [Ventolin HFA] 2 puff INHALATION Q4H PRN 08/18/20 03/26/21 aspirin 81 mg PO BEDTIME 08/18/20 03/26/21 citalopram 40 mg PO QAM 08/18/20 03/26/21 ipratropium-albuterol 1 amp INHALATION QID PRN 08/18/20 03/26/21 montelukast 10 mg PO QPM 08/18/20 03/26/21 baclofen 20 mg PO DAILY PRN 10/10/20 03/26/21 clonazepam 1 mg PO BID 10/10/20 03/26/21 pravastatin 20 mg PO BEDTIME 10/10/20 03/26/21 quetiapine 50 mg PO BID 10/10/20 03/26/21 metformin 500 mg PO DAILY 11/04/20 03/26/21 acetaminophen 1 tab PO BID PRN 02/04/21 03/26/21 folic acid 1 tab PO QAM 02/04/21 03/26/21 sennosides [senna] 1 tab PO BID PRN 02/04/21 03/26/21 thiamine HCl (vitamin B1) 1 tab PO QAM 02/04/21 03/26/21 Previous Rx's Medication Instructions Recorded furosemide [Lasix] 20 mg PO DAILY #30 tab 10/21/20 metoprolol succinate 50 mg PO DAILY 30 Days #30 tab 11/08/20 Allergies Allergy/AdvReac Type Severity Reaction Status Date / Time advair Allergy Unknown Unknown Uncoded 03/25/21 20:12 paxil Allergy Unknown Unknown Uncoded 02/12/21 20:38 From PAXIL AdvReac Intermediate NAUSEA & Uncoded 02/12/21 20:38 VOMITING Review of Systems Review of Systems: Yes Unobtainable due to mental condition [facility] Past Medical History Medical History Acute hyponatremia Bipolar 1 disorder Bipolar I disorder Congestive heart failure COPD (chronic obstructive pulmonary disease) Coronary artery disease Diabetes Hypertension Osteoarthritis Sleep apnea Surgical History Hx of appendectomy Social History Social History Household Members: Spouse Housing: House Do you presently have visiting nurse or other home services: Yes ([employer], EVERY DAY/ RN, 2 X WEEK) Unable to assess alcohol history related to: Unable to respond Alcohol intake: never Patient Tobacco Use Status: Tobacco use Unknown Cigarettes Per Day: 5 Years Smoked: 52 Smoked in Last 30 Days: No Second Hand Smoke Exposure: No Use of substances other than those prescribed or required for medical reasons: No Substance Use Type: Marijuana Advance Directives: No Advance Directives Information Provided: Yes service: No Current occupational status: disabled and other Physical Exam Vital Signs: Vital Signs: Last Vital Signs Temp 98.4 F 03/25/21 20:25 Pulse 54 03/26/21 03:28 Resp 17 03/26/21 03:28 BP 143/68 H 03/26/21 03:35 Pulse Ox 98 03/26/21 03:28 Body Mass Index 39.8 Appearance: Alert. Oriented X2. No acute distress. lethargic sleepy agitated in between Eyes: PERRLA, No Nystagmus ENT: Pharynx normal. Oral Mucosa moist Neck: Normal inspection. Neck supple. CVS: Normal heart rate and rhythm. Pulses normal. Respiratory: No respiratory distress. Equal air entry bilateral, no wheezing/rales/rhonchi Abdomen: Soft and nontender. Bowel sounds are present, no mass palpable, no CVA tenderness Skin: Skin warm and dry. Normal skin color. Normal skin turgor. Extremities: No lower extremity edema. No calf tenderness Neuro: Oriented X 2. No motor deficit. No sensory deficit.No cerebellar signs , cranial nerves II-XII intact MDM - SOB/Dyspnea MDM Narrative Medical decision making narrative: patient with hypotonic hyponatremia as in the past with increased confusion lethargic sodium level is lower than last time when she was admitted. Will restrict fluids to 1 L per 24 hours awaiting for the urine osm to confirm. patient's serum osmolality is 267 and urine osmolality is 134 with a urine sodium 30 meeting the criteria for hypotonic hyponatremia likely from alcohol/ increased water intake Medical Records Attestation: I reviewed the patient's medical records. Lab Data Attestation: I reviewed the patient's lab results. Result diagrams: 03/26/21 00:32 03/26/21 00:32 Labs: Lab Results 03/26/21 03/26/21 03/26/21 Range/Units 00:32 00:32 00:32 WBC 7.4 (4.8-10.8) X10*3/uL RBC 3.22 L (4.20-5.50) X10*6/uL Hgb 10.2 L (12.0-16.0) g/dl Hct 29.4 L (37-47) % MCV 91.3 (80-98) fL MCH 31.7 (27.0-33.0) pg MCHC 34.7 (31.0-35.0) g/dl RDW 13.9 (11.0-16.0) % Plt Count 305 D (160-400) X10*3/uL MPV 8.8 L (9.4-12.3) fL Immature Gran % (Auto) 0.8 H (0.0-0.4) % Neut % (Auto) 58.5 (45-73) % Lymph % (Auto) 27.4 (20-40) % [place] % (Auto) 11.0 (2-11) % Eos % (Auto) 1.9 (0-4) % Baso % (Auto) 0.4 (0-2) % Lymph # (Auto) 2.0 (1.2-4.9) X10*3/uL [place] # (Auto) 0.8 (0.1-1.2) X10*3/uL Eos # (Auto) 0.1 (0.0-0.4) X10*3/uL Baso # (Auto) 0.0 (0.0-0.2) X10*3/uL Abs Immat Gran (auto) 0.06 H (0.00-0.03) X10*3/uL Absolute Neuts (auto) 4.4 (2.0-8.3) X10*3/uL Absolute Nucleated RBC 0.000 (0.0-0.012) X10*3/uL Nucleated RBC % (auto) 0.0 (0.0-0.2) /100WBC VBG pH (7.32-7.43) VBG pCO2 mmHg VBG pO2 mmHg VBG HCO3 (22-26) mmol/L VBG O2 Saturation % VBG Base Excess mmol/L Sodium 124 L (135-145) mmol/L Potassium 4.2 (3.3-5.1) mmol/L Chloride 89 L (96-108) mmol/L Carbon Dioxide 26 (22-29) mmol/L Anion Gap 13 (12-20) BUN 26 H (9-16) mg/dL Creatinine 1.48 H (0.5-1.4) mg/dL Estim Creat Clear Calc 42.1 Estimated GFR 35 Random Glucose 114 (60-115) mg/dL Osmolality (281-305) mosm/kg Calcium 9.0 D (8.4-10.2) mg/dL Total Bilirubin 0.3 (0.0-1.0) mg/dL Direct Bilirubin 0.2 (0.0-0.5) mg/dL AST 14 (5-31) U/L ALT 6 (0-31) U/L Alkaline Phosphatase 103 D (39-117) U/L Ammonia (13-55) umol/L Troponin I High Sens (<3.5-17.0) ng/L B-Natriuretic Peptide (<100) pg/mL Total Protein 6.7 (6.5-8.0) g/dL Albumin 3.8 (3.5-5.0) g/dL Urine Color Urine Appearance Urine pH (5.0-8.0) Ur Specific [place] (1.005-1.025) Urine Protein (NEG-TRACE) MG/DL Urine Glucose (UA) (NEG) MG/DL Urine Ketones (NEG) MG/DL Urine Blood (NEG) Urine Nitrite (NEG) Ur Leukocyte Esterase (NEG) Urine RBC (0) /HPF Urine WBC (0-4) /HPF Ur Squamous Epith Cells /LPF Urine Bacteria /LPF Urine Osmolality (373-1093) mosm/kg Ur Random Sodium mmol/L Ur Random Potassium mmol/L Ur Random Chloride mmol/L Urine Opiates Screen (Not Detect) Ur Barbiturates Screen (Not Detect) Ur Phencyclidine Scrn (Not Detect) Ur Amphetamines Screen (Not Detect) U Benzodiazepines Scrn (Not Detect) Urine Cocaine Screen (Not Detect) U Marijuana (THC) Screen (Not Detect) Ethyl Alcohol mg/dL COVID-19 (ZAKIA) Negative (Negative) COVID-19 Clin Com See Note 03/26/21 03/26/21 03/26/21 Range/Units 00:32 00:32 00:32 WBC (4.8-10.8) X10*3/uL RBC (4.20-5.50) X10*6/uL Hgb (12.0-16.0) g/dl Hct (37-47) % MCV (80-98) fL MCH (27.0-33.0) pg MCHC (31.0-35.0) g/dl RDW (11.0-16.0) % Plt Count (160-400) X10*3/uL MPV (9.4-12.3) fL Immature Gran % (Auto) (0.0-0.4) % Neut % (Auto) (45-73) % Lymph % (Auto) (20-40) % [place] % (Auto) (2-11) % Eos % (Auto) (0-4) % Baso % (Auto) (0-2) % Lymph # (Auto) (1.2-4.9) X10*3/uL [place] # (Auto) (0.1-1.2) X10*3/uL Eos # (Auto) (0.0-0.4) X10*3/uL Baso # (Auto) (0.0-0.2) X10*3/uL Abs Immat Gran (auto) (0.00-0.03) X10*3/uL Absolute Neuts (auto) (2.0-8.3) X10*3/uL Absolute Nucleated RBC (0.0-0.012) X10*3/uL Nucleated RBC % (auto) (0.0-0.2) /100WBC VBG pH (7.32-7.43) VBG pCO2 mmHg VBG pO2 mmHg VBG HCO3 (22-26) mmol/L VBG O2 Saturation % VBG Base Excess mmol/L Sodium (135-145) mmol/L Potassium (3.3-5.1) mmol/L Chloride (96-108) mmol/L Carbon Dioxide (22-29) mmol/L Anion Gap (12-20) BUN (9-16) mg/dL Creatinine (0.5-1.4) mg/dL Estim Creat Clear Calc Estimated GFR Random Glucose (60-115) mg/dL Osmolality (281-305) mosm/kg Calcium (8.4-10.2) mg/dL Total Bilirubin (0.0-1.0) mg/dL Direct Bilirubin (0.0-0.5) mg/dL AST (5-31) U/L ALT (0-31) U/L Alkaline Phosphatase (39-117) U/L Ammonia 23 (13-55) umol/L Troponin I High Sens 3.9 (<3.5-17.0) ng/L B-Natriuretic Peptide 146 H (<100) pg/mL Total Protein (6.5-8.0) g/dL Albumin (3.5-5.0) g/dL Urine Color Urine Appearance Urine pH (5.0-8.0) Ur Specific [place] (1.005-1.025) Urine Protein (NEG-TRACE) MG/DL Urine Glucose (UA) (NEG) MG/DL Urine Ketones (NEG) MG/DL Urine Blood (NEG) Urine Nitrite (NEG) Ur Leukocyte Esterase (NEG) Urine RBC (0) /HPF Urine WBC (0-4) /HPF Ur Squamous Epith Cells /LPF Urine Bacteria /LPF Urine Osmolality (373-1093) mosm/kg Ur Random Sodium mmol/L Ur Random Potassium mmol/L Ur Random Chloride mmol/L Urine Opiates Screen (Not Detect) Ur Barbiturates Screen (Not Detect) Ur Phencyclidine Scrn (Not Detect) Ur Amphetamines Screen (Not Detect) U Benzodiazepines Scrn (Not Detect) Urine Cocaine Screen (Not Detect) U Marijuana (THC) Screen (Not Detect) Ethyl Alcohol < 10 mg/dL COVID-19 (ZAKIA) (Negative) COVID-19 Clin Com 03/26/21 03/26/21 03/26/21 Range/Units 00:32 00:45 04:20 WBC (4.8-10.8) X10*3/uL RBC (4.20-5.50) X10*6/uL Hgb (12.0-16.0) g/dl Hct (37-47) % MCV (80-98) fL MCH (27.0-33.0) pg MCHC (31.0-35.0) g/dl RDW (11.0-16.0) % Plt Count (160-400) X10*3/uL MPV (9.4-12.3) fL Immature Gran % (Auto) (0.0-0.4) % Neut % (Auto) (45-73) % Lymph % (Auto) (20-40) % [place] % (Auto) (2-11) % Eos % (Auto) (0-4) % Baso % (Auto) (0-2) % Lymph # (Auto) (1.2-4.9) X10*3/uL [place] # (Auto) (0.1-1.2) X10*3/uL Eos # (Auto) (0.0-0.4) X10*3/uL Baso # (Auto) (0.0-0.2) X10*3/uL Abs Immat Gran (auto) (0.00-0.03) X10*3/uL Absolute Neuts (auto) (2.0-8.3) X10*3/uL Absolute Nucleated RBC (0.0-0.012) X10*3/uL Nucleated RBC % (auto) (0.0-0.2) /100WBC VBG pH 7.30 L (7.32-7.43) VBG pCO2 57 mmHg VBG pO2 48 mmHg VBG HCO3 29 H (22-26) mmol/L VBG O2 Saturation 71.0 % VBG Base Excess 1.7 mmol/L Sodium (135-145) mmol/L Potassium (3.3-5.1) mmol/L Chloride (96-108) mmol/L Carbon Dioxide (22-29) mmol/L Anion Gap (12-20) BUN (9-16) mg/dL Creatinine (0.5-1.4) mg/dL Estim Creat Clear Calc Estimated GFR Random Glucose (60-115) mg/dL Osmolality 267 L (281-305) mosm/kg Calcium (8.4-10.2) mg/dL Total Bilirubin (0.0-1.0) mg/dL Direct Bilirubin (0.0-0.5) mg/dL AST (5-31) U/L ALT (0-31) U/L Alkaline Phosphatase (39-117) U/L Ammonia (13-55) umol/L Troponin I High Sens (<3.5-17.0) ng/L B-Natriuretic Peptide (<100) pg/mL Total Protein (6.5-8.0) g/dL Albumin (3.5-5.0) g/dL Urine Color COLORLESS Urine Appearance CLEAR Urine pH 6.0 (5.0-8.0) Ur Specific [place] <= 1.005 (1.005-1.025) Urine Protein NEG (NEG-TRACE) MG/DL Urine Glucose (UA) NEG (NEG) MG/DL Urine Ketones NEG (NEG) MG/DL Urine Blood 2+ H (NEG) Urine Nitrite NEG (NEG) Ur Leukocyte Esterase NEG (NEG) Urine RBC 5-9 H (0) /HPF Urine WBC 0-2 (0-4) /HPF Ur Squamous Epith Cells TRACE /LPF Urine Bacteria TRACE /LPF Urine Osmolality (373-1093) mosm/kg Ur Random Sodium mmol/L Ur Random Potassium mmol/L Ur Random Chloride mmol/L Urine Opiates Screen (Not Detect) Ur Barbiturates Screen (Not Detect) Ur Phencyclidine Scrn (Not Detect) Ur Amphetamines Screen (Not Detect) U Benzodiazepines Scrn (Not Detect) Urine Cocaine Screen (Not Detect) U Marijuana (THC) Screen (Not Detect) Ethyl Alcohol mg/dL COVID-19 (ZAKIA) (Negative) COVID-19 Clin Com 03/26/21 03/26/21 03/26/21 Range/Units 04:20 04:20 04:20 WBC (4.8-10.8) X10*3/uL RBC (4.20-5.50) X10*6/uL Hgb (12.0-16.0) g/dl Hct (37-47) % MCV (80-98) fL MCH (27.0-33.0) pg MCHC (31.0-35.0) g/dl RDW (11.0-16.0) % Plt Count (160-400) X10*3/uL MPV (9.4-12.3) fL Immature Gran % (Auto) (0.0-0.4) % Neut % (Auto) (45-73) % Lymph % (Auto) (20-40) % [place] % (Auto) (2-11) % Eos % (Auto) (0-4) % Baso % (Auto) (0-2) % Lymph # (Auto) (1.2-4.9) X10*3/uL [place] # (Auto) (0.1-1.2) X10*3/uL Eos # (Auto) (0.0-0.4) X10*3/uL Baso # (Auto) (0.0-0.2) X10*3/uL Abs Immat Gran (auto) (0.00-0.03) X10*3/uL Absolute Neuts (auto) (2.0-8.3) X10*3/uL Absolute Nucleated RBC (0.0-0.012) X10*3/uL Nucleated RBC % (auto) (0.0-0.2) /100WBC VBG pH (7.32-7.43) VBG pCO2 mmHg VBG pO2 mmHg VBG HCO3 (22-26) mmol/L VBG O2 Saturation % VBG Base Excess mmol/L Sodium (135-145) mmol/L Potassium (3.3-5.1) mmol/L Chloride (96-108) mmol/L Carbon Dioxide (22-29) mmol/L Anion Gap (12-20) BUN (9-16) mg/dL Creatinine (0.5-1.4) mg/dL Estim Creat Clear Calc Estimated GFR Random Glucose (60-115) mg/dL Osmolality (281-305) mosm/kg Calcium (8.4-10.2) mg/dL Total Bilirubin (0.0-1.0) mg/dL Direct Bilirubin (0.0-0.5) mg/dL AST (5-31) U/L ALT (0-31) U/L Alkaline Phosphatase (39-117) U/L Ammonia (13-55) umol/L Troponin I High Sens (<3.5-17.0) ng/L B-Natriuretic Peptide (<100) pg/mL Total Protein (6.5-8.0) g/dL Albumin (3.5-5.0) g/dL Urine Color Urine Appearance Urine pH (5.0-8.0) Ur Specific [place] (1.005-1.025) Urine Protein (NEG-TRACE) MG/DL Urine Glucose (UA) (NEG) MG/DL Urine Ketones (NEG) MG/DL Urine Blood (NEG) Urine Nitrite (NEG) Ur Leukocyte Esterase (NEG) Urine RBC (0) /HPF Urine WBC (0-4) /HPF Ur Squamous Epith Cells /LPF Urine Bacteria /LPF Urine Osmolality 134 L (373-1093) mosm/kg Ur Random Sodium 30.0 mmol/L Ur Random Potassium 13.0 mmol/L Ur Random Chloride 35.0 mmol/L Urine Opiates Screen Not Detected (Not Detect) Ur Barbiturates Screen Not Detected (Not Detect) Ur Phencyclidine Scrn Not Detected (Not Detect) Ur Amphetamines Screen Not Detected (Not Detect) U Benzodiazepines Scrn Not Detected (Not Detect) Urine Cocaine Screen Not Detected (Not Detect) U Marijuana (THC) Screen POSITIVE H (Not Detect) Ethyl Alcohol mg/dL COVID-19 ([facility]AKIA) (Negative) COVID-19 Clin Com ECG Data Attestation: I personally reviewed and interpreted this ECG as follows: Interpretation: sinus bradycardia with heart rate 57 beats per minute normal axis , QT interval slightly prolonged to [address] T wave changes T inversion in V1 to V3 Discharge Plan Discharge Clinical Impression: Acute confusion, Acute hyponatremia Patient Disposition: Admitted As Inpatient
--- NOTE | 2021-03-25 23:07 | ECG_ITS ---
Test Reason : ALTERED Blood Pressure : / mmHG Vent. Rate : 057 BPM Atrial Rate : 057 BPM P-R Int : 160 ms QRS Dur : 098 ms QT Int : 486 ms P-R-T Axes : 075 -04 052 degrees QTc Int : 473 ms Sinus bradycardia with Premature supraventricular complexes T wave abnormality, consider anterior ischemia Prolonged QT Abnormal ECG When compared with ECG of 14-FEB-2021 11:09, Vent. rate has decreased BY 32 BPM Referred By: Mikel Blanco Electronically Signed By:CAMPOS KELLER MD
[2021-03-25] MEDS: Albuterol Sulfate (0.083%) 2.5 MG/3 ML VIAL.NEB 5 MG INHALE (23:13)
[2021-03-25] MEDS: Albuterol/Iprat 2.5/0.5MG 3 ML AMPUL.NEB INHALE (23:13)
[2021-03-25 23:17] VITALS: PULSE 65; O2SAT 99
--- NOTE | 2021-03-25 23:31 | PC.NURSE ---
PT REFUSING TO WEAR OXYGEN AND REFUSING BREATHING TREATMENT, PT RIPPED BP CUFF OFF, REFUSING BLOOD PRESSURE TEST, PT REFUSING LAB DRAWS, PT HIT RN RN ATTEMPTED TO DRAW BLOOD.
[2021-03-26] VITALS (10 sets, daily range): BP systolic 138–182; BP diastolic 67–85; PULSE 53–110; RESP 16–22; TEMP 35.4–37.2; O2SAT 92–100
[2021-03-26] MEDS: LORazepam 2 MG/ML VIAL IM (00:06)
[2021-03-26 00:53] LABS: MANUAL DIFF FLAG NO
[2021-03-26 00:55] LABS: Venous Blood Gas Refer to POC result
[2021-03-26 00:56] LABS: VBG Base Excess 1.7 mmol/L; VBG HCO3 29 mmol/L (22-26); VBG pCO2 57 mmHg; VBG pO2 48 mmHg
[2021-03-26 00:56] LABS: Basophils Percent Auto 0.4 % (0-2); Eosinophils Absolute Auto 0.1 X10*3/uL (0.0-0.4); Eosinophils Percent Auto 1.9 % (0-4); Hematocrit 29.4 % (37-47); Hemoglobin 10.2 g/dl (12.0-16.0); Imm Gran Abs Auto 0.06 X10*3/uL (0.00-0.03); Imm Gran Pct Auto 0.8 % (0.0-0.4); Lymphocytes Percent Auto 27.4 % (20-40); Mean Corpuscular HGB Conc 34.7 g/dl (31.0-35.0); Mean Corpuscular Hemoglobin 31.7 pg (27.0-33.0); Mean Corpuscular Volume 91.3 fL (80-98); Mean Platelet Volume 8.8 fL (9.4-12.3); Monocytes Absolute Auto 0.8 X10*3/uL (0.1-1.2); Neutrophils Absolute Auto 4.4 X10*3/uL (2.0-8.3); Neutrophils Percent Auto 58.5 % (45-73); Platelet Count 305 X10*3/uL (160-400); Red Blood Count 3.22 X10*6/uL (4.20-5.50); Red Cell Distribution Width 13.9 % (11.0-16.0); White Blood Count 7.4 X10*3/uL (4.8-10.8)
[2021-03-26 01:09] LABS: Ammonia 23 umol/L (13-55)
[2021-03-26 01:13] LABS: COVID-19 Test Negative (Negative)
[2021-03-26 01:16] LABS: Ethanol < 10 mg/dL
[2021-03-26 01:27] LABS: Alanine Aminotransferase 6 U/L (0-31); Albumin Level 3.8 g/dL (3.5-5.0); Alkaline Phosphatase 103 U/L (39-117); Anion Gap 13 (12-20); Aspartate Amino Transferase 14 U/L (5-31); B Type Natriuretic Peptide 146 pg/mL (<100); Bilirubin Direct 0.2 mg/dL (0.0-0.5); Bilirubin Total 0.3 mg/dL (0.0-1.0); Blood Urea Nitrogen 26 mg/dL (9-16); Carbon Dioxide 26 mmol/L (22-29); Chloride 89 mmol/L (96-108); Creatinine Clr Calc Pharmacy 42.1; Estimated Glomerular Filt Rate 35; Glucose Random 114 mg/dL (60-115); Potassium 4.2 mmol/L (3.3-5.1); Sodium 124 mmol/L (135-145); Total Protein 6.7 g/dL (6.5-8.0); Troponin-I High Sensitivity 3.9 ng/L (<3.5-17.0)
[2021-03-26 01:46] LABS: Osmolality, Serum 267 mosm/kg (281-305)
[2021-03-26 04:28] LABS: Glucose Urine UA NEG (NEG); Leukocyte Esterase Urine NEG (NEG); Nitrite Urine NEG (NEG); Specific Gravity - Urine <= 1.005 (1.005-1.025); Urine Blood 2+ (NEG); Urine Ketones NEG (NEG); Urine Protein NEG (NEG-TRACE)
[2021-03-26 04:36] LABS: Appearance Urine CLEAR; Color Urine COLORLESS
[2021-03-26 04:46] LABS: Osmolality Urine 134 mosm/kg (373-1093)
[2021-03-26 04:49] LABS: WBC Urine 0-2 /HPF (0-4)
--- NOTE | 2021-03-26 04:49 | PM.IMHP ---
History of Present Illness Date of Service: 03/26/21 Chief Complaint: Anxiety and decreased responsiveness this is a 65-year-old female with history of bipolar disorder, acute hyponatremia, CHF, COPD, CAD, diabetes, HTN, sleep apnea, who presents from home with complaints of anxiety and confusion. Patient is Cambodian-speaking only, even with the help of interpreter translator patient could not give a real good history, she did not make sense most of the time. She kept falling asleep. Therefore history is obtained mostly from ED physician and EMR. Apparently her reported to EMS that patient has had increased confusion and sleepiness. She is has visited the hospital frequently secondary to alcohol intake as well as hyponatremia and was discharged from the ED on March 05 for alcohol intoxication and prior to that in January for hyponatremia felt to be secondary to increased water intake and alcohol. I cannot review systems as patient is poor historian and not making much sense on arrival to the ED her vitals are within normal range with no significant abnormality Labs are significant for hemoglobin of 10.2, sodium of 124 ( 128 on 03/05), BUN of 26 with a creatinine of 1.48 (baseline around 1.24), serum osmolality of 267, BNP of 146, urine with no evidence of infection, urine osmolality of 134 , and negative alcohol level. chest x-ray negative for any infection or abnormality in the lungs Review of Systems Review of Systems: Yes Unobtainable due to mental condition and Unobtainable due to mental status [facility] Medical History Acute hyponatremia Bipolar 1 disorder Bipolar I disorder Congestive heart failure COPD (chronic obstructive pulmonary disease) Coronary artery disease Diabetes Hypertension Osteoarthritis Sleep apnea Surgical History Hx of appendectomy Social History Household Members: Spouse Housing: House Do you presently have visiting nurse or other home services: Yes (INSTRUCTOR NURSE, EVERY DAY/ RN, 2 X WEEK) Unable to assess alcohol history related to: Unable to respond Alcohol intake: never Patient Tobacco Use Status: Tobacco use Unknown Cigarettes Per Day: 5 Years Smoked: 52 Smoked in Last 30 Days: No Second Hand Smoke Exposure: No Use of substances other than those prescribed or required for medical reasons: No Substance Use Type: Marijuana Advance Directives: No Advance Directives Information Provided: Yes service: No Current occupational status: disabled and other Meds Allergies Allergy/AdvReac Type Severity Reaction Status Date / Time advair Allergy Unknown Unknown Uncoded 03/25/21 20:12 paxil Allergy Unknown Unknown Uncoded 02/12/21 20:38 From PAXIL AdvReac Intermediate NAUSEA & Uncoded 02/12/21 20:38 VOMITING Home Medications Medication Instructions Recorded Confirmed Last Taken Type Flovent HFA 1 puff INHALATION BID 08/18/20 03/26/21 Unknown History albuterol sulfate [Ventolin HFA] 2 puff INHALATION Q4H PRN 08/18/20 03/26/21 Unknown History aspirin 81 mg PO BEDTIME 08/18/20 03/26/21 Unknown History citalopram 40 mg PO QAM 08/18/20 03/26/21 Unknown History ipratropium-albuterol 1 amp INHALATION QID PRN 08/18/20 03/26/21 Unknown History montelukast 10 mg PO QPM 08/18/20 03/26/21 Unknown History baclofen 20 mg PO DAILY PRN 10/10/20 03/26/21 Unknown History clonazepam 1 mg PO BID 10/10/20 03/26/21 Unknown History pravastatin 20 mg PO BEDTIME 10/10/20 03/26/21 Unknown History quetiapine 50 mg PO BID 10/10/20 03/26/21 Unknown History metformin 500 mg PO DAILY 11/04/20 03/26/21 Unknown History acetaminophen 1 tab PO BID PRN 02/04/21 03/26/21 Unknown History folic acid 1 tab PO QAM 02/04/21 03/26/21 Unknown History sennosides [senna] 1 tab PO BID PRN 02/04/21 03/26/21 Unknown History thiamine HCl (vitamin B1) 1 tab PO QAM 02/04/21 03/26/21 Unknown History Physical Exam Vital Signs and Narrative: Vital Signs: Last Vital Signs Temp 98.4 F 03/25/21 20:25 Pulse 54 03/26/21 03:28 Resp 17 03/26/21 03:28 BP 143/68 H 03/26/21 03:35 Pulse Ox 98 03/26/21 03:28 Body Mass Index 39.8 Const: Other: somnolent but arousable Eyes: General: appearance normal, both eyes and all related structures Pupils: Equal, round and reactive pupils present Resp: Effort & Inspection: normal respiratory effort Auscultation: clear to auscultation bilaterally Cardio: Rate: regular rate Rhythm: regular rhythm GI: Palpation (GI): Soft to palpation Auscultation: normal bowel sounds Skin: General skin exam: no rashes or lesions noted Neuro: Cranial nerves: Yes Equal, round and reactive pupils present Cognition (Neuro): normal cognition Extrem: General: Yes normal to inspection and Yes no pedal edema Results Labs CBC and Chem 7: 03/26/21 00:32 03/26/21 00:32 Labs: Laboratory Results - last 24 hr 03/26/21 03/26/21 03/26/21 00:32 00:32 00:32 MCV 91.3 MCH 31.7 MCHC 34.7 RDW 13.9 Plt Count 305 D MPV 8.8 L Immature Gran % (Auto) 0.8 H Neut % (Auto) 58.5 Lymph % (Auto) 27.4 [place] % (Auto) 11.0 Eos % (Auto) 1.9 Baso % (Auto) 0.4 Lymph # (Auto) 2.0 [place] # (Auto) 0.8 Eos # (Auto) 0.1 Baso # (Auto) 0.0 Abs Immat Gran (auto) 0.06 H Absolute Neuts (auto) 4.4 Absolute Nucleated RBC 0.000 Nucleated RBC % (auto) 0.0 VBG pH VBG pCO2 VBG pO2 VBG HCO3 VBG O2 Saturation VBG Base Excess Anion Gap 13 Estim Creat Clear Calc 42.1 Estimated GFR 35 Random Glucose 114 Osmolality Calcium 9.0 D Total Bilirubin 0.3 Direct Bilirubin 0.2 AST 14 ALT 6 Alkaline Phosphatase 103 D Ammonia Troponin I High Sens B-Natriuretic Peptide Total Protein 6.7 Albumin 3.8 Urine Color Urine Appearance Urine pH Ur Specific [place] Urine Protein Urine Glucose (UA) Urine Ketones Urine Blood Urine Nitrite Ur Leukocyte Esterase Urine Osmolality Ethyl Alcohol COVID-19 ([facility]AKIA) Negative COVID-19 Clin Com See Note 03/26/21 03/26/21 03/26/21 00:32 00:32 00:32 MCV MCH MCHC RDW Plt Count MPV Immature Gran % (Auto) Neut % (Auto) Lymph % (Auto) [place] % (Auto) Eos % (Auto) Baso % (Auto) Lymph # (Auto) [place] # (Auto) Eos # (Auto) Baso # (Auto) Abs Immat Gran (auto) Absolute Neuts (auto) Absolute Nucleated RBC Nucleated RBC % (auto) VBG pH VBG pCO2 VBG pO2 VBG HCO3 VBG O2 Saturation VBG Base Excess Anion Gap Estim Creat Clear Calc Estimated GFR Random Glucose Osmolality Calcium Total Bilirubin Direct Bilirubin AST ALT Alkaline Phosphatase Ammonia 23 Troponin I High Sens 3.9 B-Natriuretic Peptide 146 H Total Protein Albumin Urine Color Urine Appearance Urine pH Ur Specific [place] Urine Protein Urine Glucose (UA) Urine Ketones Urine Blood Urine Nitrite Ur Leukocyte Esterase Urine Osmolality Ethyl Alcohol < 10 COVID-19 (ZAKIA) COVID-19 [employer] 03/26/21 03/26/21 03/26/21 00:32 00:45 04:20 MCV MCH MCHC RDW Plt Count MPV Immature Gran % (Auto) Neut % (Auto) Lymph % (Auto) [place] % (Auto) Eos % (Auto) Baso % (Auto) Lymph # (Auto) [place] # (Auto) Eos # (Auto) Baso # (Auto) Abs Immat Gran (auto) Absolute Neuts (auto) Absolute Nucleated RBC Nucleated RBC % (auto) VBG pH 7.30 L VBG pCO2 57 VBG pO2 48 VBG HCO3 29 H VBG O2 Saturation 71.0 VBG Base Excess 1.7 Anion Gap Estim Creat Clear Calc Estimated GFR Random Glucose Osmolality 267 L Calcium Total Bilirubin Direct Bilirubin AST ALT Alkaline Phosphatase Ammonia Troponin I High Sens B-Natriuretic Peptide Total Protein Albumin Urine Color COLORLESS Urine Appearance CLEAR Urine pH 6.0 Ur Specific [place] <= 1.005 Urine Protein NEG Urine Glucose (UA) NEG Urine Ketones NEG Urine Blood 2+ H Urine Nitrite NEG Ur Leukocyte Esterase NEG Urine Osmolality Ethyl Alcohol COVID-19 ([facility]AKIA) COVID-19 [employer] 03/26/21 04:20 MCV MCH MCHC RDW Plt Count MPV Immature Gran % (Auto) Neut % (Auto) Lymph % (Auto) [place] % (Auto) Eos % (Auto) Baso % (Auto) Lymph # (Auto) [place] # (Auto) Eos # (Auto) Baso # (Auto) Abs Immat Gran (auto) Absolute Neuts (auto) Absolute Nucleated RBC Nucleated RBC % (auto) VBG pH VBG pCO2 VBG pO2 VBG HCO3 VBG O2 Saturation VBG Base Excess Anion Gap Estim Creat Clear Calc Estimated GFR Random Glucose Osmolality Calcium Total Bilirubin Direct Bilirubin AST ALT Alkaline Phosphatase Ammonia Troponin I High Sens B-Natriuretic Peptide Total Protein Albumin Urine Color Urine Appearance Urine pH Ur Specific [place] Urine Protein Urine Glucose (UA) Urine Ketones Urine Blood Urine Nitrite Ur Leukocyte Esterase Urine Osmolality 134 L Ethyl Alcohol COVID-19 ([facility]AKIA) COVID-19 Clin Com Imaging Radiologist's Impressions: Impressions Chest X-Ray 03/25/21 23:08 IMPRESSION: No acute pulmonary findings. Assessment and Plan (1) Encephalopathy: Status: Acute (2) Alcohol use disorder: Status: Acute (3) Acute hyponatremia: Status: Acute (4) SAGAR (acute kidney injury): Status: Acute 65-year-old female with past medical history of hypotonic hyponatremia presents to the hospital with increased confusion as well as sleepiness found to have sodium of 124 # encephalopathy - possibly multifactorial in the setting of hyponatremia as well as alcohol abuse - no evidence of infection - sodium of 124, alcohol level negative at this time - will obtain head CT - monitor mentation, if not improved consider MRI # hyponatremia - most likely secondary to beer proteinemia as well as increased water intake - appears euvolemic - urine as well as serum osmolality both low - will place her on water restriction to 1.5 - consult Nephrology - will hold SSRI # SAGAR - mildly elevated creatinine and BUN - given her hyponatremia will monitor kidney function off fluids - follow BMP # alcohol use disorder - reviewing EMS revealed the patient drinks few times a week - will place her on CIWA- if elevated consider phenobarb protocol - thiamine and folic acid supplement # diabetes - hold metformin - low-dose sliding scale insulin - diabetic diet # bipolar disorder - continue Seroquel - hold SSRI in the setting of hyponatremia # CHF - not in exacerbation - continue home Lasix DVT prophylaxis: Heparin subQ Quality Stroke Does the patient have a stroke diagnosis?: No VTE Prior VTE?: No VTE Risk Level:: Medical - moderate - high VTE Device Contraindication: Treatment Not Indicated VTE Drug Contraindication: N/A - Med Ordered
[2021-03-26 04:50] LABS: Bacteria Urine TRACE /LPF; Squamous Epithelial Cell Urine TRACE /LPF
[2021-03-26 05:13] LABS: Amphetamine Screen Urine Not Detected (Not Detect); Barbiturates, Urine Not Detected (Not Detect); Benzodiazepines Screen Urine Not Detected (Not Detect); Cannabinoid Screen Urine POSITIVE (Not Detect); Cocaine Screen Urine Not Detected (Not Detect); Opiate Screen Urine Not Detected (Not Detect); Phencyclidine Screen Urine Not Detected (Not Detect)
--- NOTE | 2021-03-26 07:13 | PC.NURSE ---
nurse to nurse given to december (rn). pt aware of plan of care for admission to hosp.
[2021-03-26 07:54] LABS: Glucose, Whole Blood 112 mg/dL (60-115)
[2021-03-26] MEDS: Heparin Sodium,Porcine 5,000 UNIT/ML VIAL 5000 UNIT SUBCUT ×2 (08:03→19:14)
--- NOTE | 2021-03-26 09:58 | P.CONNP_ITS ---
History of Present Illness Reason for Consult Consult date: 03/26/21 Chief Complaint Chief complaint: Hyponatremia Review of Systems Review of Systems Yes Unobtainable due to mental condition and Unobtainable due to mental status [facility] Past Medical History Medical History Acute hyponatremia Bipolar 1 disorder Bipolar I disorder Congestive heart failure COPD (chronic obstructive pulmonary disease) Coronary artery disease Diabetes Hypertension Osteoarthritis Sleep apnea Surgical History Surgical History Hx of appendectomy Social History Social History Household Members: Spouse Housing: Apartment Unable to assess alcohol history related to: Unable to respond Alcohol intake: unknown Patient Tobacco Use Status: Current everyday Tobacco user Tobacco use type: Cigarette Cigarettes Per Day: 5 Years Smoked: 52 Smoked in Last 30 Days: Yes e-Cigarette/Vaping Use: Currently Using Second Hand Smoke Exposure: No Use of substances other than those prescribed or required for medical reasons: No Substance Use Type: Marijuana Currently Displaying Signs/Symptoms of Drug Intoxication Withdrawal: No Spiritual Healthcare Practices: unknown Advance Directives: No Advance Directives Information Provided: Yes Do you have thoughts of harming others: None Do you have a plan to hurt others: No Plan Recently lost weight without trying: Unsure Nutrition Risks: Diabetes new onset/Uncontrolled Patient : No : No Poor oral hygiene: No service: No Current occupational status: disabled and other Meds Allergies Allergy/AdvReac Type Severity Reaction Status Date / Time advair Allergy Unknown Unknown Uncoded 03/25/21 20:12 paxil Allergy Unknown Unknown Uncoded 02/12/21 20:38 From PAXIL AdvReac Intermediate NAUSEA & Uncoded 02/12/21 20:38 VOMITING Active Medications: Current Medications Generic Name Dose Route Start Last Admin Trade Name Freq PRN Reason Stop Dose Admin Acetaminophen 650 mg 03/26/21 06:24 Acetaminophen 325 Mg Tablet PO Q6H PRN Pain, Mild (Pain Scale 1-3) Albuterol Sulfate 2 puff 03/26/21 06:24 Albuterol Sulfate 90 Mcg 8 Gm Inhaler INHALE Q4H PRN Shortness Of Breath Or Wheezing Albuterol/Ipratropium 3 ml 03/26/21 06:24 Albuterol/Iprat 2.5/0.5mg 3 Ml Ampul.Neb INHALE QID PRN Shortness Of Breath Or Wheezing Aspirin 81 mg 03/26/21 09:00 Aspirin Enteric Coated 81 Mg Tablet.Dr PO DAILY [facility] Baclofen 20 mg 03/26/21 06:24 Baclofen 20 Mg Tablet PO DAILY PRN Pain Clonazepam 1 mg 03/26/21 09:00 Clonazepam 1 Mg Tablet PO BID [facility] Docusate Sodium 100 mg 03/26/21 06:24 Docusate Sodium 100 Mg Capsule PO DAILY PRN Constipation Fluticasone Propionate 1 puff 03/26/21 08:00 03/26/21 07:54 Fluticasone Propionate 250 Mcg Blst.W.Dev INHALE Not Given RBID [facility] Folic Acid 1 mg 03/26/21 09:00 Folic Acid 1 Mg Tablet PO DAILY [facility] Furosemide 20 mg 03/26/21 09:00 Furosemide 20 Mg Tablet PO DAILY [facility] Protocol Heparin Sodium (Porcine) 5,000 unit 03/26/21 06:24 03/26/21 08:03 Heparin Sodium,Porcine 5,000 Unit/Ml Vial SUBCUT 5,000 unit Q12H [facility] Administration Insulin Human Lispro 0 unit 03/26/21 07:30 03/26/21 07:51 Insulin Lispro 100 Unit/Ml 3 Ml Vial SUBCUT Not Given QIDACHS [facility] Protocol Metoprolol Succinate 50 mg 03/26/21 09:00 Metoprolol Succinate Er 50 Mg Tab.Er.24h PO DAILY [facility] Protocol Montelukast Sodium 10 mg 03/26/21 21:00 Montelukast Sodium 10 Mg Tablet PO BEDTIME [facility] Ondansetron HCl 4 mg 03/26/21 06:24 Ondansetron Hcl 4 Mg/2 Ml Vial IVPUSH Q8H PRN Nausea and Vomiting Pravastatin Sodium 20 mg 03/26/21 21:00 Pravastatin Sodium 20 Mg Tablet PO BEDTIME [facility] Quetiapine Fumarate 50 mg 03/26/21 09:00 Quetiapine Fumarate 50 Mg Tablet PO BID [facility] Senna 8.6 mg 03/26/21 06:24 Sennosides 8.6 Mg Tablet PO BID PRN constipation Thiamine HCl 100 mg 03/26/21 09:00 Thiamine Hcl 100 Mg Tablet PO DAILY [facility] Home Medications Medication Instructions Recorded Confirmed Last Taken Type Flovent HFA 1 puff INHALATION BID 08/18/20 03/26/21 Unknown History albuterol sulfate [Ventolin HFA] 2 puff INHALATION Q4H PRN 08/18/20 03/26/21 Unknown History aspirin 81 mg PO BEDTIME 08/18/20 03/26/21 Unknown History citalopram 40 mg PO QAM 08/18/20 03/26/21 Unknown History ipratropium-albuterol 1 amp INHALATION QID PRN 08/18/20 03/26/21 Unknown History montelukast 10 mg PO QPM 08/18/20 03/26/21 Unknown History baclofen 20 mg PO DAILY PRN 10/10/20 03/26/21 Unknown History clonazepam 1 mg PO BID 10/10/20 03/26/21 Unknown History pravastatin 20 mg PO BEDTIME 10/10/20 03/26/21 Unknown History quetiapine 50 mg PO BID 10/10/20 03/26/21 Unknown History metformin 500 mg PO DAILY 11/04/20 03/26/21 Unknown History acetaminophen 1 tab PO BID PRN 02/04/21 03/26/21 Unknown History folic acid 1 tab PO QAM 02/04/21 03/26/21 Unknown History sennosides [senna] 1 tab PO BID PRN 02/04/21 03/26/21 Unknown History thiamine HCl (vitamin B1) 1 tab PO QAM 02/04/21 03/26/21 Unknown History Physical Exam Vital Signs: Last Vital Signs Temp 98.9 F 03/26/21 07:44 Pulse 59 03/26/21 07:44 Resp 18 03/26/21 07:44 BP 180/85 H 03/26/21 07:44 Pulse Ox 98 03/26/21 07:44 Body Mass Index 39.8 Const Other: somnolent but arousable Eyes General: appearance normal, both eyes and all related structures Pupils: Equal, round and reactive pupils present Resp Effort & Inspection: normal respiratory effort Auscultation: clear to auscultation bilaterally Cardio Rate: regular rate Rhythm: regular rhythm GI Palpation (GI): Soft to palpation Auscultation: normal bowel sounds Skin General skin exam: no rashes or lesions noted Neuro Cranial nerves: Yes Equal, round and reactive pupils present Cognition (Neuro): normal cognition Extrem General: Yes normal to inspection and Yes no pedal edema Results Lab Results Result Diagrams: 03/26/21 00:32 03/26/21 00:32 Lab results: Chemistry 03/26/21 00:32 Sodium 124 L Potassium 4.2 Carbon Dioxide 26 BUN 26 H Creatinine 1.48 H Calcium 9.0 D Hematology 03/26/21 00:32 WBC 7.4 Hgb 10.2 L Plt Count 305 D Urinalysis 03/26/21 04:20 Urine Color COLORLESS Urine Appearance CLEAR Urine pH 6.0 Ur Specific [place] <= 1.005 Urine Protein NEG Urine Glucose (UA) NEG Urine Ketones NEG Urine Blood 2+ H Urine Nitrite NEG Ur Leukocyte Esterase NEG Urine RBC 5-9 H Urine WBC 0-2 Ur Squamous Epith Cells TRACE Urine Studies 03/26/21 04:20 Urine Osmolality 134 L Assessment and Plan (1) Encephalopathy: Status: Acute (2) Alcohol use disorder: Status: Acute (3) Acute hyponatremia: Status: Acute (4) SAGAR (acute kidney injury): Status: Acute 65-year-old female with past medical history of hypotonic hyponatremia presents to the hospital with increased confusion as well as sleepiness found to have sodium of 124 # hyponatremia can be 2nd to CRS. LASIX will cause the low urine osm - she may have low osmolar (solute) intake - appears euvolemic - urine as well as serum osmolality both low she will respond to solute either PO or IV # SAGAR recurrent - mildly elevated creatinine and BUN # CKD her creat fluctuates from 0.8 to 3.4 (jul 2020) non proteinuric CT KIDNEYS AND URETERS: The kidneys are normal in size, shape, and attenuation. No hydronephrosis, hydroureter, or obstructing calculi seen. No perinephric stranding. # HTN # DM # CHF echo - 1. Normal LV systolic function with pseudonormal filling pattern 2. Mild aortic regurgitation 3. Mildly elevated right ventricular systolic pressure 4. Trivial pericardial effusion Summary: I suspect cardiorenal syndrome as cause of SAGAR and low Na suggest optimized BP and cardiac function can start with ditiazem titrate up to 720 mg max then can add spironolactone if BP not at goal DVT prophylaxis: Heparin subQ Procedures Date of Service Date of Service: 03/26/21
--- NOTE | 2021-03-26 10:12 | HO.PM.IMPN ---
Subjective Subjective Date of Service: 03/26/21 Interval History: Seen in f/u for hyponatremia, encephalopathy, SAGAR. Patient remains confused, she somnolent but easily awakes and is confused Review of Systems Review of Systems: Yes Unobtainable due to mental status Physical Exam Vital Signs: Vital Signs: Last Vital Signs Temp 98.9 F 03/26/21 07:44 Pulse 59 03/26/21 07:44 Resp 18 03/26/21 07:44 BP 180/85 H 03/26/21 07:44 Pulse Ox 98 03/26/21 07:44 Body Mass Index 39.8 Const: Other: General: confused, no acute distress Resp: CTA bilateral CVS: S1,S2,RRR GI: +BS, NT, no distention Skin: No rash Neuro: motor grossly intact Psych: flat affect Objective Data Current Medications Generic Name Dose Route Start Last Admin Trade Name Freq PRN Reason Stop Dose Admin Acetaminophen 650 mg 03/26/21 06:24 Acetaminophen 325 Mg Tablet PO Q6H PRN Pain, Mild (Pain Scale 1-3) Albuterol Sulfate 2 puff 03/26/21 06:24 Albuterol Sulfate 90 Mcg 8 Gm Inhaler INHALE Q4H PRN Shortness Of Breath Or Wheezing Albuterol/Ipratropium 3 ml 03/26/21 06:24 Albuterol/Iprat 2.5/0.5mg 3 Ml Ampul.Neb INHALE QID PRN Shortness Of Breath Or Wheezing Aspirin 81 mg 03/26/21 09:00 Aspirin Enteric Coated 81 Mg Tablet.Dr PO DAILY [facility] Baclofen 20 mg 03/26/21 06:24 Baclofen 20 Mg Tablet PO DAILY PRN Pain Clonazepam 1 mg 03/26/21 09:00 Clonazepam 1 Mg Tablet PO BID [facility] Docusate Sodium 100 mg 03/26/21 06:24 Docusate Sodium 100 Mg Capsule PO DAILY PRN Constipation Fluticasone Propionate 1 puff 03/26/21 08:00 03/26/21 07:54 Fluticasone Propionate 250 Mcg Blst.W.Dev INHALE Not Given RBID [facility] Folic Acid 1 mg 03/26/21 09:00 Folic Acid 1 Mg Tablet PO DAILY [facility] Furosemide 20 mg 03/26/21 09:00 Furosemide 20 Mg Tablet PO DAILY [facility] Protocol Heparin Sodium (Porcine) 5,000 unit 03/26/21 06:24 03/26/21 08:03 Heparin Sodium,Porcine 5,000 Unit/Ml Vial SUBCUT 5,000 unit Q12H [facility] Administration Insulin Human Lispro 0 unit 03/26/21 07:30 03/26/21 07:51 Insulin Lispro 100 Unit/Ml 3 Ml Vial SUBCUT Not Given QIDACHS [facility] Protocol Metoprolol Succinate 50 mg 03/26/21 09:00 Metoprolol Succinate Er 50 Mg Tab.Er.24h PO DAILY [facility] Protocol Montelukast Sodium 10 mg 03/26/21 21:00 Montelukast Sodium 10 Mg Tablet PO BEDTIME [facility] Ondansetron HCl 4 mg 03/26/21 06:24 Ondansetron Hcl 4 Mg/2 Ml Vial IVPUSH Q8H PRN Nausea and Vomiting Pravastatin Sodium 20 mg 03/26/21 21:00 Pravastatin Sodium 20 Mg Tablet PO BEDTIME [facility] Quetiapine Fumarate 50 mg 03/26/21 09:00 Quetiapine Fumarate 50 Mg Tablet PO BID [facility] Senna 8.6 mg 03/26/21 06:24 Sennosides 8.6 Mg Tablet PO BID PRN constipation Thiamine HCl 100 mg 03/26/21 09:00 Thiamine Hcl 100 Mg Tablet PO DAILY [facility] Labs CBC & Chem 7: 03/26/21 00:32 03/26/21 00:32 Labs: Laboratory Results - last 24 hr 03/26/21 03/26/21 03/26/21 00:32 00:32 00:32 WBC 7.4 RBC 3.22 L Hgb 10.2 L Hct 29.4 L MCV 91.3 MCH 31.7 MCHC 34.7 RDW 13.9 Plt Count 305 D MPV 8.8 L Immature Gran % (Auto) 0.8 H Neut % (Auto) 58.5 Lymph % (Auto) 27.4 [place] % (Auto) 11.0 Eos % (Auto) 1.9 Baso % (Auto) 0.4 Lymph # (Auto) 2.0 [place] # (Auto) 0.8 Eos # (Auto) 0.1 Baso # (Auto) 0.0 Abs Immat Gran (auto) 0.06 H Absolute Neuts (auto) 4.4 Absolute Nucleated RBC 0.000 Nucleated RBC % (auto) 0.0 VBG pH VBG pCO2 VBG pO2 VBG HCO3 VBG O2 Saturation VBG Base Excess Sodium 124 L Potassium 4.2 Chloride 89 L Carbon Dioxide 26 Anion Gap 13 BUN 26 H Creatinine 1.48 H Estim Creat Clear Calc 42.1 Estimated GFR 35 POC Glucose Random Glucose 114 Osmolality Calcium 9.0 D Total Bilirubin 0.3 Direct Bilirubin 0.2 AST 14 ALT 6 Alkaline Phosphatase 103 D Ammonia Troponin I High Sens B-Natriuretic Peptide Total Protein 6.7 Albumin 3.8 Urine Color Urine Appearance Urine pH Ur Specific [place] Urine Protein Urine Glucose (UA) Urine Ketones Urine Blood Urine Nitrite Ur Leukocyte Esterase Urine RBC Urine WBC Ur Squamous Epith Cells Urine Bacteria Urine Osmolality Ur Random Sodium Ur Random Potassium Ur Random Chloride Urine Opiates Screen Ur Barbiturates Screen Ur Phencyclidine Scrn Ur Amphetamines Screen U Benzodiazepines Scrn Urine Cocaine Screen U Marijuana (THC) Screen Ethyl Alcohol COVID-19 ([facility]) Negative COVID-19 [email or web address] See Note 03/26/21 03/26/21 03/26/21 00:32 00:32 00:32 WBC RBC Hgb Hct MCV MCH MCHC RDW Plt Count MPV Immature Gran % (Auto) Neut % (Auto) Lymph % (Auto) [place] % (Auto) Eos % (Auto) Baso % (Auto) Lymph # (Auto) [place] # (Auto) Eos # (Auto) Baso # (Auto) Abs Immat Gran (auto) Absolute Neuts (auto) Absolute Nucleated RBC Nucleated RBC % (auto) VBG pH VBG pCO2 VBG pO2 VBG HCO3 VBG O2 Saturation VBG Base Excess Sodium Potassium Chloride Carbon Dioxide Anion Gap BUN Creatinine Estim Creat Clear Calc Estimated GFR POC Glucose Random Glucose Osmolality Calcium Total Bilirubin Direct Bilirubin AST ALT Alkaline Phosphatase Ammonia 23 Troponin I High Sens 3.9 B-Natriuretic Peptide 146 H Total Protein Albumin Urine Color Urine Appearance Urine pH Ur Specific [place] Urine Protein Urine Glucose (UA) Urine Ketones Urine Blood Urine Nitrite Ur Leukocyte Esterase Urine RBC Urine WBC Ur Squamous Epith Cells Urine Bacteria Urine Osmolality Ur Random Sodium Ur Random Potassium Ur Random Chloride Urine Opiates Screen Ur Barbiturates Screen Ur Phencyclidine Scrn Ur Amphetamines Screen U Benzodiazepines Scrn Urine Cocaine Screen U Marijuana (THC) Screen Ethyl Alcohol < 10 COVID-19 ([facility]) COVID-19 [email or web address] 03/26/21 03/26/21 03/26/21 00:32 00:45 04:20 WBC RBC Hgb Hct MCV MCH MCHC RDW Plt Count MPV Immature Gran % (Auto) Neut % (Auto) Lymph % (Auto) [place] % (Auto) Eos % (Auto) Baso % (Auto) Lymph # (Auto) [place] # (Auto) Eos # (Auto) Baso # (Auto) Abs Immat Gran (auto) Absolute Neuts (auto) Absolute Nucleated RBC Nucleated RBC % (auto) VBG pH 7.30 L VBG pCO2 57 VBG pO2 48 VBG HCO3 29 H VBG O2 Saturation 71.0 VBG Base Excess 1.7 Sodium Potassium Chloride Carbon Dioxide Anion Gap BUN Creatinine Estim Creat Clear Calc Estimated GFR POC Glucose Random Glucose Osmolality 267 L Calcium Total Bilirubin Direct Bilirubin AST ALT Alkaline Phosphatase Ammonia Troponin I High Sens B-Natriuretic Peptide Total Protein Albumin Urine Color COLORLESS Urine Appearance CLEAR Urine pH 6.0 Ur Specific [place] <= 1.005 Urine Protein NEG Urine Glucose (UA) NEG Urine Ketones NEG Urine Blood 2+ H Urine Nitrite NEG Ur Leukocyte Esterase NEG Urine RBC 5-9 H Urine WBC 0-2 Ur Squamous Epith Cells TRACE Urine Bacteria TRACE Urine Osmolality Ur Random Sodium Ur Random Potassium Ur Random Chloride Urine Opiates Screen Ur Barbiturates Screen Ur Phencyclidine Scrn Ur Amphetamines Screen U Benzodiazepines Scrn Urine Cocaine Screen U Marijuana (THC) Screen Ethyl Alcohol COVID-19 ([facility]) COVID-19 Clin Com 03/26/21 03/26/21 03/26/21 04:20 04:20 04:20 WBC RBC Hgb Hct MCV MCH MCHC RDW Plt Count MPV Immature Gran % (Auto) Neut % (Auto) Lymph % (Auto) [place] % (Auto) Eos % (Auto) Baso % (Auto) Lymph # (Auto) [place] # (Auto) Eos # (Auto) Baso # (Auto) Abs Immat Gran (auto) Absolute Neuts (auto) Absolute Nucleated RBC Nucleated RBC % (auto) VBG pH VBG pCO2 VBG pO2 VBG HCO3 VBG O2 Saturation VBG Base Excess Sodium Potassium Chloride Carbon Dioxide Anion Gap BUN Creatinine Estim Creat Clear Calc Estimated GFR POC Glucose Random Glucose Osmolality Calcium Total Bilirubin Direct Bilirubin AST ALT Alkaline Phosphatase Ammonia Troponin I High Sens B-Natriuretic Peptide Total Protein Albumin Urine Color Urine Appearance Urine pH Ur Specific [place] Urine Protein Urine Glucose (UA) Urine Ketones Urine Blood Urine Nitrite Ur Leukocyte Esterase Urine RBC Urine WBC Ur Squamous Epith Cells Urine Bacteria Urine Osmolality 134 L Ur Random Sodium 30.0 Ur Random Potassium 13.0 Ur Random Chloride 35.0 Urine Opiates Screen Not Detected Ur Barbiturates Screen Not Detected Ur Phencyclidine Scrn Not Detected Ur Amphetamines Screen Not Detected U Benzodiazepines Scrn Not Detected Urine Cocaine Screen Not Detected U Marijuana (THC) Screen POSITIVE H Ethyl Alcohol COVID-19 ([facility]) COVID-19 [employer] Com 03/26/21 07:50 WBC RBC Hgb Hct MCV MCH MCHC RDW Plt Count MPV Immature Gran % (Auto) Neut % (Auto) Lymph % (Auto) [place] % (Auto) Eos % (Auto) Baso % (Auto) Lymph # (Auto) [place] # (Auto) Eos # (Auto) Baso # (Auto) Abs Immat Gran (auto) Absolute Neuts (auto) Absolute Nucleated RBC Nucleated RBC % (auto) VBG pH VBG pCO2 VBG pO2 VBG HCO3 VBG O2 Saturation VBG Base Excess Sodium Potassium Chloride Carbon Dioxide Anion Gap BUN Creatinine Estim Creat Clear Calc Estimated GFR POC Glucose 112 Random Glucose Osmolality Calcium Total Bilirubin Direct Bilirubin AST ALT Alkaline Phosphatase Ammonia Troponin I High Sens B-Natriuretic Peptide Total Protein Albumin Urine Color Urine Appearance Urine pH Ur Specific [place] Urine Protein Urine Glucose (UA) Urine Ketones Urine Blood Urine Nitrite Ur Leukocyte Esterase Urine RBC Urine WBC Ur Squamous Epith Cells Urine Bacteria Urine Osmolality Ur Random Sodium Ur Random Potassium Ur Random Chloride Urine Opiates Screen Ur Barbiturates Screen Ur Phencyclidine Scrn Ur Amphetamines Screen U Benzodiazepines Scrn Urine Cocaine Screen U Marijuana (THC) Screen Ethyl Alcohol COVID-19 ([facility]) COVID-19 Clin Com Quality Stroke Does the patient have a stroke diagnosis?: No VTE Prior VTE?: No VTE Risk Level:: Medical - moderate - high VTE Device Contraindication: Treatment Not Indicated VTE Drug Contraindication: N/A - Med Ordered Assessment and Plan (1) Encephalopathy: Status: Acute (2) Alcohol use disorder: Status: Acute (3) Acute hyponatremia: Status: Acute (4) SAGAR (acute kidney injury): Status: Acute Assessment and Plan: 65-year-old female with past medical history of hypotonic hyponatremia presents to the hospital with increased confusion as well as sleepiness found to have sodium of 124 # hyponatremia--likely multifactorial, beer related, liver disease, excessive water intake -avoid rapid correction -recheck sodium level now -fluid restriction -Neprhology input for further management -Urine study # SAGAR on CKD, repeat labs today, Nephrology to guide us further # CKD her creat fluctuates from 0.8 to 3.4 (jul 2020) non proteinuric CT KIDNEYS AND URETERS: The kidneys are normal in size, shape, and attenuation. No hydronephrosis, hydroureter, or obstructing calculi seen. No perinephric stranding. # HTN--BP is very high, repeat, continue Metoprolol and if needed add Norvasc # DM--continue SSI, not sure what she takes at home # CHF echo - 1. Normal LV systolic function with pseudonormal filling pattern 2. Mild aortic regurgitation 3. Mildly elevated right ventricular systolic pressure 4. Trivial pericardial effusion DVT prophylaxis: Heparin subQ
[2021-03-26] MEDS: clonazePAM 1 MG TABLET PO ×2 (11:07→21:13)
[2021-03-26] MEDS: Furosemide 20 MG TABLET PO (11:07)
[2021-03-26] MEDS: Folic Acid 1 MG TABLET PO (11:08)
[2021-03-26] MEDS: Aspirin Enteric Coated 81 MG TABLET.DR PO (11:08)
[2021-03-26] MEDS: Metoprolol Succinate ER 50 MG TAB.ER.24H PO (11:08)
[2021-03-26] MEDS: QUEtiapine Fumarate 50 MG TABLET PO ×2 (11:08→21:13)
[2021-03-26] MEDS: Thiamine HCL 100 MG TABLET PO (11:08)
[2021-03-26 11:14] LABS: Glucose, Whole Blood 115 mg/dL (60-115)
[2021-03-26 12:21] LABS: Anion Gap 15 (12-20); Blood Urea Nitrogen 23 mg/dL (9-16); Calcium 9.1 mg/dL (8.4-10.2); Carbon Dioxide 24 mmol/L (22-29); Chloride 95 mmol/L (96-108); Creatinine Clr Calc Pharmacy 50.6; Estimated Glomerular Filt Rate 44; Glucose Random 105 mg/dL (60-115); Potassium 4.5 mmol/L (3.3-5.1); Sodium 129 mmol/L (135-145)
--- NOTE | 2021-03-26 12:55 | MHC.CM.PN ---
Addendum entered by Diamante Stallings 03/26/21 13:59: SECOND ATTEMPT TO CONTACT PTS HCP, MIKO MADE. CALL AGAIN WENT TO . CM TO CALL BACK Original Note: PT UNABLE TO PROVIDE RELIABLE HISTORY. CM ATTEMPTED TO CONTACT HER SIGNIFICANT OTHER/HCP/CAREGIVER, MIKO ([phone]) VIA T/C HOWEVER THE CALL WENT TO . A MESSAGE WAS LEFT REQUESTING A RETURN CALL.
[2021-03-26 16:34] LABS: Glucose, Whole Blood 113 mg/dL (60-115)
[2021-03-26] MEDS: Fluticasone Propionate 250 MCG BLST.W.DEV 1 PUFF INHALE (19:17)
[2021-03-26 20:32] LABS: Glucose, Whole Blood 141 mg/dL (60-115)
[2021-03-26] MEDS: Pravastatin Sodium 20 MG TABLET PO (21:13)
[2021-03-26] MEDS: Montelukast Sodium 10 MG TABLET PO (21:13)
[2021-03-27] VITALS (11 sets, daily range): BP systolic 125–164; BP diastolic 66–86; PULSE 59–82; RESP 18–19; TEMP 36.1–36.7; O2SAT 92–96
[2021-03-27] MEDS: Heparin Sodium,Porcine 5,000 UNIT/ML VIAL 5000 UNIT SUBCUT ×2 (05:46→18:25)
[2021-03-27 06:53] LABS: MANUAL DIFF FLAG NO
[2021-03-27 06:59] LABS: Basophils Percent Auto 0.6 % (0-2); Eosinophils Absolute Auto 0.1 X10*3/uL (0.0-0.4); Eosinophils Percent Auto 1.6 % (0-4); Hematocrit 31.1 % (37-47); Hemoglobin 10.6 g/dl (12.0-16.0); Imm Gran Abs Auto 0.04 X10*3/uL (0.00-0.03); Imm Gran Pct Auto 0.8 % (0.0-0.4); Lymphocytes Absolute Auto 1.5 X10*3/uL (1.2-4.9); Lymphocytes Percent Auto 30.5 % (20-40); Mean Corpuscular HGB Conc 34.1 g/dl (31.0-35.0); Mean Corpuscular Hemoglobin 31.2 pg (27.0-33.0); Mean Corpuscular Volume 91.5 fL (80-98); Monocytes Absolute Auto 0.6 X10*3/uL (0.1-1.2); Monocytes Percent Auto 13.2 % (2-11); Neutrophils Absolute Auto 2.6 X10*3/uL (2.0-8.3); Neutrophils Percent Auto 53.3 % (45-73); Platelet Count 340 X10*3/uL (160-400); Red Cell Distribution Width 14.4 % (11.0-16.0); White Blood Count 4.9 X10*3/uL (4.8-10.8)
[2021-03-27 07:16] LABS: Glucose, Whole Blood 100 mg/dL (60-115)
--- NOTE | 2021-03-27 07:30 | P.CONNP_ITS ---
History of Present Illness Reason for Consult Consult date: 03/27/21 Chief Complaint Chief complaint: Hyponatremia Review of Systems Review of Systems Yes Unobtainable due to mental condition and Unobtainable due to mental status PMFSH Past Medical History Medical History Acute hyponatremia Bipolar 1 disorder Bipolar I disorder Congestive heart failure COPD (chronic obstructive pulmonary disease) Coronary artery disease Diabetes Hypertension Osteoarthritis Sleep apnea Surgical History Surgical History Hx of appendectomy Social History Social History Household Members: Spouse Housing: Apartment Unable to assess alcohol history related to: Unable to respond Alcohol intake: unknown Patient Tobacco Use Status: Current everyday Tobacco user Tobacco use type: Cigarette Cigarettes Per Day: 5 Years Smoked: 52 Smoked in Last 30 Days: Yes e-Cigarette/Vaping Use: Currently Using Second Hand Smoke Exposure: No Use of substances other than those prescribed or required for medical reasons: No Substance Use Type: Marijuana Currently Displaying Signs/Symptoms of Drug Intoxication Withdrawal: No Spiritual Healthcare Practices: unknown Advance Directives: No Advance Directives Information Provided: Yes Do you have thoughts of harming others: None Do you have a plan to hurt others: No Plan Recently lost weight without trying: Unsure Nutrition Risks: Diabetes new onset/Uncontrolled Patient : No : No Poor oral hygiene: No service: No Current occupational status: disabled and other Meds Allergies Allergy/AdvReac Type Severity Reaction Status Date / Time advair Allergy Unknown Unknown Uncoded 03/25/21 20:12 paxil Allergy Unknown Unknown Uncoded 02/12/21 20:38 From PAXIL AdvReac Intermediate NAUSEA & Uncoded 02/12/21 20:38 VOMITING Active Medications: Current Medications Generic Name Dose Route Start Last Admin Trade Name Freq PRN Reason Stop Dose Admin Acetaminophen 650 mg 03/26/21 06:24 Acetaminophen 325 Mg Tablet PO Q6H PRN Pain, Mild (Pain Scale 1-3) Albuterol Sulfate 2 puff 03/26/21 06:24 Albuterol Sulfate 90 Mcg 8 Gm Inhaler INHALE Q4H PRN Shortness Of Breath Or Wheezing Albuterol/Ipratropium 3 ml 03/26/21 06:24 Albuterol/Iprat 2.5/0.5mg 3 Ml Ampul.Neb INHALE QID PRN Shortness Of Breath Or Wheezing Aspirin 81 mg 03/26/21 09:00 03/26/21 11:08 Aspirin Enteric Coated 81 Mg Tablet.Dr PO 81 mg DAILY [facility] Administration Baclofen 20 mg 03/26/21 06:24 Baclofen 20 Mg Tablet PO DAILY PRN Pain Clonazepam 1 mg 03/26/21 09:00 03/26/21 21:13 Clonazepam 1 Mg Tablet PO 1 mg BID [facility]KO Administration Docusate Sodium 100 mg 03/26/21 06:24 Docusate Sodium 100 Mg Capsule PO DAILY PRN Constipation Fluticasone Propionate 1 puff 03/26/21 08:00 03/26/21 19:17 Fluticasone Propionate 250 Mcg Blst.W.Dev INHALE 1 puff RBID [facility]KO Administration Folic Acid 1 mg 03/26/21 09:00 03/26/21 11:08 Folic Acid 1 Mg Tablet PO 1 mg DAILY [facility] Administration Furosemide 20 mg 03/26/21 09:00 03/26/21 11:07 Furosemide 20 Mg Tablet PO 20 mg DAILY [facility] Administration Protocol Heparin Sodium (Porcine) 5,000 unit 03/26/21 06:24 03/27/21 05:46 Heparin Sodium,Porcine 5,000 Unit/Ml Vial SUBCUT 5,000 unit Q12H [facility] Administration Insulin Human Lispro 0 unit 03/26/21 07:30 03/26/21 21:13 Insulin Lispro 100 Unit/Ml 3 Ml Vial SUBCUT Not Given QIDACHS [facility] Protocol Metoprolol Succinate 50 mg 03/26/21 09:00 03/26/21 11:08 Metoprolol Succinate Er 50 Mg Tab.Er.24h PO 50 mg DAILY [facility] Administration Protocol Montelukast Sodium 10 mg 03/26/21 21:00 03/26/21 21:13 Montelukast Sodium 10 Mg Tablet PO 10 mg BEDTIME [facility] Administration Ondansetron HCl 4 mg 03/26/21 06:24 Ondansetron Hcl 4 Mg/2 Ml Vial IVPUSH Q8H PRN Nausea and Vomiting Pravastatin Sodium 20 mg 03/26/21 21:00 03/26/21 21:13 Pravastatin Sodium 20 Mg Tablet PO 20 mg BEDTIME [facility] Administration Quetiapine Fumarate 50 mg 03/26/21 09:00 03/26/21 21:13 Quetiapine Fumarate 50 Mg Tablet PO 50 mg BID [facility] Administration Senna 8.6 mg 03/26/21 06:24 Sennosides 8.6 Mg Tablet PO BID PRN constipation Thiamine HCl 100 mg 03/26/21 09:00 03/26/21 11:08 Thiamine Hcl 100 Mg Tablet PO 100 mg DAILY [facility] Administration Home Medications Medication Instructions Recorded Confirmed Last Taken Type Flovent HFA 1 puff INHALATION BID 08/18/20 03/26/21 Unknown History albuterol sulfate [Ventolin HFA] 2 puff INHALATION Q4H PRN 08/18/20 03/26/21 Unknown History aspirin 81 mg PO BEDTIME 08/18/20 03/26/21 Unknown History citalopram 40 mg PO QAM 08/18/20 03/26/21 Unknown History ipratropium-albuterol 1 amp INHALATION QID PRN 08/18/20 03/26/21 Unknown History montelukast 10 mg PO QPM 08/18/20 03/26/21 Unknown History baclofen 20 mg PO DAILY PRN 10/10/20 03/26/21 Unknown History clonazepam 1 mg PO BID 10/10/20 03/26/21 Unknown History pravastatin 20 mg PO BEDTIME 10/10/20 03/26/21 Unknown History quetiapine 50 mg PO BID 10/10/20 03/26/21 Unknown History metformin 500 mg PO DAILY 11/04/20 03/26/21 Unknown History acetaminophen 1 tab PO BID PRN 02/04/21 03/26/21 Unknown History folic acid 1 tab PO QAM 02/04/21 03/26/21 Unknown History sennosides [senna] 1 tab PO BID PRN 02/04/21 03/26/21 Unknown History thiamine HCl (vitamin B1) 1 tab PO QAM 02/04/21 03/26/21 Unknown History Physical Exam Vital Signs: Last Vital Signs Temp 97.3 F 03/27/21 03:42 Pulse 59 03/27/21 03:42 Resp 19 03/27/21 03:42 BP 164/86 H 03/27/21 03:42 Pulse Ox 93 03/27/21 03:42 Body Mass Index 39.8 Const Other: General: confused, no acute distress Resp: CTA bilateral CVS: S1,S2,RRR GI: +BS, NT, no distention Skin: No rash Neuro: motor grossly intact Psych: flat affect Eyes General: appearance normal, both eyes and all related structures Pupils: Equal, round and reactive pupils present Resp Effort & Inspection: normal respiratory effort Auscultation: clear to auscultation bilaterally Cardio Rate: regular rate Rhythm: regular rhythm GI Palpation (GI): Soft to palpation Auscultation: normal bowel sounds Skin General skin exam: no rashes or lesions noted Neuro Cranial nerves: Yes Equal, round and reactive pupils present Cognition (Neuro): normal cognition Extrem General: Yes normal to inspection and Yes no pedal edema Results Lab Results Result Diagrams: 03/27/21 05:37 03/26/21 11:20 Lab results: Chemistry 03/26/21 03/26/21 00:32 11:20 Sodium 124 L 129 L Potassium 4.2 4.5 Carbon Dioxide 26 24 BUN 26 H 23 H Creatinine 1.48 H 1.23 Calcium 9.0 D 9.1 Hematology 03/26/21 03/27/21 00:32 05:37 WBC 7.4 4.9 Hgb 10.2 L 10.6 L Plt Count 305 D 340 Urinalysis 03/26/21 04:20 Urine Color COLORLESS Urine Appearance CLEAR Urine pH 6.0 Ur Specific [place] <= 1.005 Urine Protein NEG Urine Glucose (UA) NEG Urine Ketones NEG Urine Blood 2+ H Urine Nitrite NEG Ur Leukocyte Esterase NEG Urine RBC 5-9 H Urine WBC 0-2 Ur Squamous Epith Cells TRACE Urine Studies 03/26/21 04:20 Urine Osmolality 134 L Assessment and Plan (1) Encephalopathy: Status: Acute (2) Alcohol use disorder: Status: Acute (3) Acute hyponatremia: Status: Acute (4) SAGAR (acute kidney injury): Status: Acute 65-year-old female with past medical history of hypotonic hyponatremia presents to the hospital with increased confusion as well as sleepiness found to have sodium of 124 # CKD her creat fluctuates from 0.8 to 3.4 (jul 2020) non proteinuric 2-2020 CT KIDNEYS AND URETERS: The kidneys are normal in size, shape, and attenuation. No hydronephrosis, hydroureter, or obstructing calculi seen. No perinephric stranding. # HTN--BP is very high, repeat, continue Metoprolol and if needed add Norvasc # DM--continue SSI, not sure what she takes at home # CHF echo - 1. Normal LV systolic function with pseudonormal filling pattern 2. Mild aortic regurgitation 3. Mildly elevated right ventricular systolic pressure 4. Trivial pericardial effusion Stable CKD low Na maybe 2nd to CRS. There may be poor solute intake that would impair h20 excretion if she is able to take PO solute it will correct the low Na if not would give 1 L NS at 75 cc/hr Procedures Date of Service Date of Service: 03/27/21
[2021-03-27] MEDS: Fluticasone Propionate 250 MCG BLST.W.DEV 1 PUFF INHALE ×2 (07:34→20:10)
[2021-03-27] MEDS: Metoprolol Succinate ER 50 MG TAB.ER.24H PO (07:38)
[2021-03-27] MEDS: Aspirin Enteric Coated 81 MG TABLET.DR PO (07:38)
[2021-03-27] MEDS: clonazePAM 1 MG TABLET PO ×2 (07:39→21:29)
[2021-03-27] MEDS: Folic Acid 1 MG TABLET PO (07:39)
[2021-03-27] MEDS: QUEtiapine Fumarate 50 MG TABLET PO ×2 (07:39→21:29)
[2021-03-27] MEDS: Furosemide 20 MG TABLET PO (07:39)
[2021-03-27] MEDS: Thiamine HCL 100 MG TABLET PO (07:39)
[2021-03-27 07:44] LABS: Anion Gap 13 (12-20); Blood Urea Nitrogen 22 mg/dL (9-16); Carbon Dioxide 26 mmol/L (22-29); Chloride 100 mmol/L (96-108); Creatinine Clr Calc Pharmacy 51.9; Estimated Glomerular Filt Rate 45; Glucose Random 94 mg/dL (60-115); Potassium 4.3 mmol/L (3.3-5.1); Sodium 135 mmol/L (135-145)
--- NOTE | 2021-03-27 10:39 | P.PNIM_ITS ---
Subjective Subjective Date of Service: 03/27/21 Interval History: seen and examined this AM more alert and oriented initially she thought she was at home ROS unreliable Physical Exam Vital Signs: Vital Signs: Last Vital Signs Temp 97.3 F 03/27/21 03:42 Pulse 81 03/27/21 07:38 Resp 18 03/27/21 07:35 BP 164/74 H 03/27/21 07:38 Pulse Ox 92 03/27/21 07:35 Body Mass Index 39.8 Const: Other: General - no acute distress, appears comfortable Cardiovascular - regular rate and rhythm, S1-S2 Lungs - normal respiratory effort, clear to auscultation bilaterally, no whe ezing Abdomen - soft, nontender, no rebound or guarding Extremities - no edema bilaterally Neuro - awake and alert, oriented to place and self, no focal deficits appreciated Objective Data Current Medications Generic Name Dose Route Start Last Admin Trade Name Freq PRN Reason Stop Dose Admin Acetaminophen 650 mg 03/26/21 06:24 Acetaminophen 325 Mg Tablet PO Q6H PRN Pain, Mild (Pain Scale 1-3) Albuterol Sulfate 2 puff 03/26/21 06:24 Albuterol Sulfate 90 Mcg 8 Gm Inhaler INHALE Q4H PRN Shortness Of Breath Or Wheezing Albuterol/Ipratropium 3 ml 03/26/21 06:24 Albuterol/Iprat 2.5/0.5mg 3 Ml Ampul.Neb INHALE QID PRN Shortness Of Breath Or Wheezing Aspirin 81 mg 03/26/21 09:00 03/27/21 07:38 Aspirin Enteric Coated 81 Mg Tablet. PO 81 mg DAILY YUMIKO Administration Baclofen 20 mg 03/26/21 06:24 Baclofen 20 Mg Tablet PO DAILY PRN Pain Clonazepam 1 mg 03/26/21 09:00 03/27/21 07:39 Clonazepam 1 Mg Tablet PO 1 mg BID YUMIKO Administration Docusate Sodium 100 mg 03/26/21 06:24 Docusate Sodium 100 Mg Capsule PO DAILY PRN Constipation Fluticasone Propionate 1 puff 03/26/21 08:00 03/27/21 07:34 Fluticasone Propionate 250 Mcg Blst.W.Dev INHALE 1 puff RBID YUMIKO Administration Folic Acid 1 mg 03/26/21 09:00 03/27/21 07:39 Folic Acid 1 Mg Tablet PO 1 mg DAILY YUMIKO Administration Furosemide 20 mg 03/26/21 09:00 03/27/21 07:39 Furosemide 20 Mg Tablet PO 20 mg DAILY YUMIKO Administration Protocol Heparin Sodium (Porcine) 5,000 unit 03/26/21 06:24 03/27/21 05:46 Heparin Sodium,Porcine 5,000 Unit/Ml Vial SUBCUT 5,000 unit Q12H YUMIKO Administration Insulin Human Lispro 0 unit 03/26/21 07:30 03/27/21 07:31 Insulin Lispro 100 Unit/Ml 3 Ml Vial SUBCUT Not Given QIDACHS [facility] Protocol Metoprolol Succinate 50 mg 03/26/21 09:00 03/27/21 07:38 Metoprolol Succinate Er 50 Mg Tab.Er.24h PO 50 mg DAILY YUMIKO Administration Protocol Montelukast Sodium 10 mg 03/26/21 21:00 03/26/21 21:13 Montelukast Sodium 10 Mg Tablet PO 10 mg BEDTIME YUMIKO Administration Nicotine 14 mg 03/27/21 10:00 Nicotine 14 Mg Patch.Td24 TRANSDERMA DAILY [facility] Ondansetron HCl 4 mg 03/26/21 06:24 Ondansetron Hcl 4 Mg/2 Ml Vial IVPUSH Q8H PRN Nausea and Vomiting Pravastatin Sodium 20 mg 03/26/21 21:00 03/26/21 21:13 Pravastatin Sodium 20 Mg Tablet PO 20 mg BEDTIME YUMIKO Administration Quetiapine Fumarate 50 mg 03/26/21 09:00 03/27/21 07:39 Quetiapine Fumarate 50 Mg Tablet PO 50 mg BID YUMIKO Administration Senna 8.6 mg 03/26/21 06:24 Sennosides 8.6 Mg Tablet PO BID PRN constipation Thiamine HCl 100 mg 03/26/21 09:00 03/27/21 07:39 Thiamine Hcl 100 Mg Tablet PO 100 mg DAILY YUMIKO Administration Labs CBC & Chem 7: 03/27/21 05:37 03/27/21 05:37 Labs: Laboratory Results - last 24 hr 03/26/21 03/26/21 03/26/21 10:54 11:20 16:04 WBC RBC Hgb Hct MCV MCH MCHC RDW Plt Count MPV Immature Gran % (Auto) Neut % (Auto) Lymph % (Auto) Wake % (Auto) Eos % (Auto) Baso % (Auto) Lymph # (Auto) Wake # (Auto) Eos # (Auto) Baso # (Auto) Abs Immat Gran (auto) Absolute Neuts (auto) Absolute Nucleated RBC Nucleated RBC % (auto) Sodium 129 L Potassium 4.5 Chloride 95 L Carbon Dioxide 24 Anion Gap 15 BUN 23 H Creatinine 1.23 Estim Creat Clear Calc 50.6 Estimated GFR 44 POC Glucose 115 113 Random Glucose 105 Calcium 9.1 03/26/21 03/27/21 03/27/21 20:25 05:37 05:37 WBC 4.9 RBC 3.40 L Hgb 10.6 L Hct 31.1 L MCV 91.5 MCH 31.2 MCHC 34.1 RDW 14.4 Plt Count 340 MPV 9.0 L Immature Gran % (Auto) 0.8 H Neut % (Auto) 53.3 Lymph % (Auto) 30.5 Wake % (Auto) 13.2 H Eos % (Auto) 1.6 Baso % (Auto) 0.6 Lymph # (Auto) 1.5 Wake # (Auto) 0.6 Eos # (Auto) 0.1 Baso # (Auto) 0.0 Abs Immat Gran (auto) 0.04 H Absolute Neuts (auto) 2.6 Absolute Nucleated RBC 0.000 Nucleated RBC % (auto) 0.0 Sodium 135 Potassium 4.3 Chloride 100 Carbon Dioxide 26 Anion Gap 13 BUN 22 H Creatinine 1.20 Estim Creat Clear Calc 51.9 Estimated GFR 45 POC Glucose 141 H Random Glucose 94 Calcium 9.0 03/27/21 07:04 WBC RBC Hgb Hct MCV MCH MCHC RDW Plt Count MPV Immature Gran % (Auto) Neut % (Auto) Lymph % (Auto) Wake % (Auto) Eos % (Auto) Baso % (Auto) Lymph # (Auto) Wake # (Auto) Eos # (Auto) Baso # (Auto) Abs Immat Gran (auto) Absolute Neuts (auto) Absolute Nucleated RBC Nucleated RBC % (auto) Sodium Potassium Chloride Carbon Dioxide Anion Gap BUN Creatinine Estim Creat Clear Calc Estimated GFR POC Glucose 100 Random Glucose Calcium Quality Stroke Does the patient have a stroke diagnosis?: No VTE Prior VTE?: No VTE Risk Level:: Medical - moderate - high VTE Device Contraindication: Treatment Not Indicated VTE Drug Contraindication: N/A - Med Ordered Assessment and Plan (1) Encephalopathy: Status: Acute (2) Alcohol use disorder: Status: Acute (3) Acute hyponatremia: Status: Acute (4) SAGAR (acute kidney injury): Status: Acute Assessment and Plan: 65-year-old female with past medical history of hypotonic hyponatremia presents to the hospital with increased confusion as well as sleepiness found to have sodium of 124 #Acute metabolic encephalopathy due to hyponatremia slowly improving towards her baseline but not there yet # hyponatremia--likely multifactorial, beer related, liver disease, excessive water intake SNa improved to >130 now with improvement in her encephalopathy continue free water restrictions # SAGAR on CKD SCr improved # HTN improvined, monitor # DM ISS # Chronic CHF, unspecified continue baseline meds Full Code DVT pptx, subcut. heparin dispo: anticipate d/c home tomorrow
[2021-03-27 11:04] LABS: Glucose, Whole Blood 96 mg/dL (60-115)
[2021-03-27] MEDS: Albuterol Sulfate 90 MCG 8 GM INHALER 2 PUFF INHALE (11:12)
[2021-03-27] MEDS: Nicotine 14 MG PATCH.TD24 TRANSDERMA (11:12)
--- NOTE | 2021-03-27 12:52 | MHC.CM.PN ---
CM SPOKE TO PTS HCP/DISEASE EDUCATION SPECIALIST, MIKO ([phone]) VIA T/C. MIKO REPORTS HE IS STILL THE ASSEMBLY RIVETER FOR THE PT BUT HE DOES NOT FEEL HE CAN MANAGE HER CARE AT THIS TIME. HE REPORTS THE PTS MENTATION HAS BEEN WORSE AND HE FEELS SHE NEEDS TO GO SOMEWHERE FOR 2 MONTHS . HE REPORTS SHE HAS A LOT OF WORRIES ABOUT HER KIDS CM EXPLAINED STR WOULD NOT HELP WITH MENTAL HEALTH CONDITIONS AND PT LIKELY NEEDS TO FOLLOW UP WITH MENTAL HEALTH PROVIDERS. MIKO REPORTS THE PT HAS BEEN ISOLATING AND HAS LOST ALL OF HER MH PROVIDERS SO WOULD NEED A REFERRAL. MIKO REPORTS HE STILL FEELS THE PT NEEDS TO GO TO STR AND HE IS HOPING SHE CAN GO TO ONE IN THE [place] AREA. REFERRALS WILL BE MADE TO ALL [place] SNF'S. IMM DELIVERED AND A COPY WILL BE MAILED TO HCP. DC PLAN IS STR/HALFWAY PLACEMENT AND REFERRAL TO OP MH PROVIDERS. PT WILL NEED BLS TRANSPORT
[2021-03-27 15:22] LABS: Glucose, Whole Blood 101 mg/dL (60-115)
[2021-03-27 19:51] LABS: Glucose, Whole Blood 154 mg/dL (60-115)
[2021-03-27] MEDS: Montelukast Sodium 10 MG TABLET PO (21:29)
[2021-03-27] MEDS: Pravastatin Sodium 20 MG TABLET PO (21:29)
[2021-03-27] MEDS: Insulin Lispro 100 UNIT/ML 3 ML VIAL SUBCUT (21:29)
[2021-03-28] VITALS (9 sets, daily range): BP systolic 143–171; BP diastolic 69–76; PULSE 59–77; RESP 17–20; TEMP 36.2–37; O2SAT 92–100
[2021-03-28 05:35] LABS: Anion Gap 14 (12-20); Blood Urea Nitrogen 29 mg/dL (9-16); Calcium 9.2 mg/dL (8.4-10.2); Carbon Dioxide 25 mmol/L (22-29); Chloride 101 mmol/L (96-108); Creatinine Clr Calc Pharmacy 45.1; Estimated Glomerular Filt Rate 38; Glucose Random 92 mg/dL (60-115); Potassium 4.3 mmol/L (3.3-5.1); Sodium 136 mmol/L (135-145)
[2021-03-28] MEDS: Heparin Sodium,Porcine 5,000 UNIT/ML VIAL 5000 UNIT SUBCUT ×2 (06:02→18:41)
[2021-03-28 07:04] LABS: Glucose, Whole Blood 102 mg/dL (60-115)
[2021-03-28] MEDS: Nicotine 14 MG PATCH.TD24 TRANSDERMA (08:01)
[2021-03-28] MEDS: Acetaminophen 325 MG TABLET 650 MG PO (08:02)
[2021-03-28] MEDS: Furosemide 20 MG TABLET PO (08:02)
[2021-03-28] MEDS: Thiamine HCL 100 MG TABLET PO (08:02)
[2021-03-28] MEDS: Metoprolol Succinate ER 50 MG TAB.ER.24H PO (08:02)
[2021-03-28] MEDS: QUEtiapine Fumarate 50 MG TABLET PO ×2 (08:02→21:01)
[2021-03-28] MEDS: Aspirin Enteric Coated 81 MG TABLET.DR PO (08:02)
[2021-03-28] MEDS: clonazePAM 1 MG TABLET PO ×2 (08:02→21:01)
[2021-03-28] MEDS: Folic Acid 1 MG TABLET PO (08:03)
[2021-03-28] MEDS: Albuterol/Iprat 2.5/0.5MG 3 ML AMPUL.NEB INHALE (08:20)
--- NOTE | 2021-03-28 10:53 | P.DS_ITS ---
DS: Providers Provider Date of Service: 03/28/21 <ALICIA Ma - Last Filed: 03/29/21 12:09> Date of admission: 03/26/21 05:49 <ALICIA Ma - Last Filed: 03/29/21 12:09> Primary care physician: Unknown Physician <ALICIA Ma - Last Filed: 03/29/21 12:09> Consults: 03/26/21 06:24 Consult to Nephrology Routine Consulting Provider: [facility] Reason for consultation: hyponatremia Has provider been notified: No 03/27/21 12:57 Consult to Care Team Routine Comment: Reason for consultation: referral to outpatient mental health providers; etoh <ALICIA Ma - Last Filed: 03/29/21 12:09> DS: Diagnosis Discharge Diagnosis (1) Encephalopathy: Status: Acute <ALICIA Ma - Last Filed: 03/29/21 12:09> (2) Alcohol use disorder: Status: Acute <ALICIA Ma - Last Filed: 03/29/21 12:09> (3) Acute hyponatremia: Status: Acute <ALICIA Ma - Last Filed: 03/29/21 12:09> (4) SAGAR (acute kidney injury): Status: Acute <ALICIA Ma - Last Filed: 03/29/21 12:09> DS: Medications Discharge Medications Home Medications: Home Medications Medication Instructions Recorded Confirmed Flovent HFA 1 puff INHALATION BID 08/18/20 03/26/21 albuterol sulfate [Ventolin HFA] 2 puff INHALATION Q4H PRN 08/18/20 03/26/21 aspirin 81 mg PO BEDTIME 08/18/20 03/26/21 citalopram 40 mg PO QAM 08/18/20 03/26/21 ipratropium-albuterol 1 amp INHALATION QID PRN 08/18/20 03/26/21 montelukast 10 mg PO QPM 08/18/20 03/26/21 baclofen 20 mg PO DAILY PRN 10/10/20 03/26/21 clonazepam 1 mg PO BID 10/10/20 03/26/21 pravastatin 20 mg PO BEDTIME 10/10/20 03/26/21 quetiapine 50 mg PO BID 10/10/20 03/26/21 metformin 500 mg PO DAILY 11/04/20 03/26/21 acetaminophen 1 tab PO BID PRN 02/04/21 03/26/21 folic acid 1 tab PO QAM 02/04/21 03/26/21 sennosides [senna] 1 tab PO BID PRN 02/04/21 03/26/21 thiamine HCl (vitamin B1) 1 tab PO QAM 02/04/21 03/26/21 Previous Rx's Medication Instructions Recorded furosemide [Lasix] 20 mg PO DAILY #30 tab 10/21/20 metoprolol succinate 50 mg PO DAILY 30 Days #30 tab 11/08/20 <ALICIA Ma - Last Filed: 03/29/21 12:09> DS: Summary Hospital Course Hospital Course: From H&P on day of admission this is a 65-year-old female with history of bipolar disorder, acute hyponatremia, CHF, COPD, CAD, diabetes, HTN, sleep apnea, who presents from home with complaints of anxiety and confusion. Patient is Egyptian-speaking only, even with the help of relocation coordinator patient could not give a real good history, she did not make sense most of the time. She kept falling asleep. Therefore history is obtained mostly from ED physician and EMR. Apparently her reported to EMS that patient has had increased confusion and sleepiness. She is has visited the hospital frequently secondary to alcohol intake as well as hyponatremia and was discharged from the ED on March 05 for alcohol intoxication and prior to that in January for hyponatremia felt to be secondary to increased water intake and alcohol. I cannot review systems as patient is poor historian and not making much sense on arrival to the ED her vitals are within normal range with no significant abnormality Labs are significant for hemoglobin of 10.2, sodium of 124 ( 128 on 03/05), BUN of 26 with a creatinine of 1.48 (baseline around 1.24), serum osmolality of 267, BNP of 146, urine with no evidence of infection, urine osmolality of 134 , and negative alcohol level. chest x-ray negative for any infection or abnormality in the lungs Hyponatremia Likely multifactorial, beer related, liver disease, excessive water intake. she was seen by Nephrology, Started on fluid restriction. SNa improved to >130 now with improvement in her encephalopathy. Continue free water restrictions. SSRI has been discontinued. Patient was evaluated by Physical therapy who recommended short-term rehab. HCP/Environmental Sampler Juanjo did not feel like he can manage her care at home at this time and was agreeable for short term rehab. Asthma. She had some scattered wheezing on exam and will be started on a 5 day burst of prednisone. can continue breathing treatments as prescribed. <ALICIA Ma - Last Filed: 03/29/21 12:09> Time Spent with Patient Time attestation: Total time spent providing and/or coordinating discharge services: <ALICIA Ma Last Filed: 03/29/21 12:09> Discharge coordination time: Greater than 30 minutes <ALICIA Ma Last Filed: 03/29/21 12:09> Quality: Stroke Does the patient have a stroke diagnosis?: No <ALICIA Ma Last Filed: 03/29/21 12:09> Physical Exam Vital Signs: Vital Signs: Last Vital Signs Temp 97.7 F 03/28/21 07:08 Pulse 74 03/28/21 08:21 Resp 18 03/28/21 07:08 BP 155/75 H 03/28/21 08:02 Pulse Ox 93 03/28/21 07:08 Body Mass Index 39.8 <ALICIA Ma Last Filed: 03/29/21 12:09> Const: Nutritional Appearance: well nourished <ALICIA Ma Last Filed: 03/29/21 12:09> HENMT: Head: Yes normocephalic and Yes atraumatic <ALICIA Ma Last Filed: 03/29/21 12:09> Eyes: Sclerae: sclerae normal <ALICIA Ma Last Filed: 03/29/21 12:09> Chest: Chest palpation & inspection: normal inspection of the chest <ALICIA Ma Last Filed: 03/29/21 12:09> Resp: Other: scattered wheeze <ALICIA Ma Last Filed: 03/29/21 12:09> Effort & Inspection: normal respiratory effort and no respiratory distress <ALICIA Ma - Last Filed: 03/29/21 12:09> Cardio: Rate: regular rate <ALICIA Ma - Last Filed: 03/29/21 12:09> Rhythm: regular rhythm <ALICIA Ma - Last Filed: 03/29/21 12:09> GI: Palpation (GI): Soft to palpation and nontender <ALICIA Ma - Last Filed: 03/29/21 12:09> Neuro: Cranial nerves: Yes CN's II-XII intact bilaterally and Yes Bilaterally intact EOM present <ALICIA Ma - Last Filed: 03/29/21 12:09> DS: Data Data Completed and Pending Labs on day of discharge: Laboratory Results - last 24 hr 03/27/21 03/27/21 03/27/21 10:51 15:16 19:43 Sodium Potassium Chloride Carbon Dioxide Anion Gap BUN Creatinine Estim Creat Clear Calc Estimated GFR POC Glucose 96 101 154 H Random Glucose Calcium 03/28/21 03/28/21 04:43 06:57 Sodium 136 Potassium 4.3 Chloride 101 Carbon Dioxide 25 Anion Gap 14 BUN 29 H Creatinine 1.38 Estim Creat Clear Calc 45.1 Estimated GFR 38 POC Glucose 102 Random Glucose 92 Calcium 9.2 <ALICIA Ma - Last Filed: 03/29/21 12:09> Discharge Plan Discharge Patient Disposition: [facility] <ALICIA Ma - Last Filed: 03/29/21 12:09> Discharge Diagnosis: Metabolic encephalopathy Hyponatremia Mild asthma exacerbation <ALICIA Ma - Last Filed: 03/29/21 12:09> Metabolic encephalopathy Hyponatremia Mild asthma exacerbation <Ramana Valadez MD - Last Filed: 03/29/21 15:58> Referrals: Mai Tellez [Outside] - 1 Week Physician,Unknown [Primary Care Provider] - 1 Week <ALICIA Ma - Last Filed: 03/29/21 12:09> Discharge Medications: New prednisone 20 mg tablet 40 mg PO DAILY 5 Days Qty: 10 RF: 0 Continued ipratropium-albuterol 0.5 mg-3 mg(2.5 mg base)/3 mL solution for nebulization 1 amp inhalation QID PRN (Reason: Shortness Of Breath Or Wheezing) RF: 0 aspirin 81 mg tablet,delayed release (DR/EC) 81 mg PO BEDTIME RF: 0 montelukast 10 mg tablet 10 mg PO QPM RF: 0 Flovent HFA 220 mcg/actuation HFA aerosol inhaler 1 puff inhalation BID RF: 0 albuterol sulfate [Ventolin HFA] 90 mcg/actuation HFA aerosol inhaler 2 puff inhalation Q4H PRN (Reason: Shortness Of Breath Or Wheezing) RF: 0 clonazepam 1 mg Tablet 1 mg PO BID RF: 0 baclofen 20 mg Tablet 20 mg PO DAILY PRN (Reason: Pain) RF: 0 pravastatin 20 mg Tablet 20 mg PO BEDTIME RF: 0 quetiapine 50 mg Tablet 50 mg PO BID RF: 0 furosemide [Lasix] 20 mg tablet 20 mg PO DAILY Qty: 30 RF: 0 Hold Instructions: Resume on 02/13/21. hold until repeat labs in 1 week, follow up with PCP metformin 500 mg tablet 500 mg PO DAILY RF: 0 metoprolol succinate 50 mg Tablet Extended Release 24 Hr 50 mg PO DAILY 30 Days Qty: 30 RF: 0 sennosides [senna] 8.6 mg tablet 1 tab PO BID PRN (Reason: constipation) RF: 0 thiamine HCl (vitamin B1) 100 mg tablet 1 tab PO QAM RF: 0 acetaminophen 650 mg tablet extended release 1 tab PO BID PRN (Reason: pain) RF: 0 folic acid 1 mg tablet 1 tab PO QAM RF: 0 Discontinued citalopram 40 mg tablet 40 mg PO QAM RF: 0 <ALICIA Ma - Last Filed: 03/29/21 12:09> Discharge Orders: Discharge Order (Routine); Ordered 03/29/21 Ordered By: Melody Land <ALICIA Ma - Last Filed: 03/29/21 12:09> Activity on Discharge: As tolerated <ALICIA Ma - Last Filed: 03/29/21 12:09> As tolerated <Ramana Valadez MD - Last Filed: 03/29/21 15:58> Stand Alone Forms: Patient Portal Discharge page <ALICIA Ma - Last Filed: 03/29/21 12:09> Care Plan Goals: see below <ALICIA Ma - Last Filed: 03/29/21 12:09> Health Concerns: encephalopathy Hyponatremia Alcohol use disorder asthma <ALICIA Ma - Last Filed: 03/29/21 12:09> Plan of Treatment: should continue 1500cc/day fluid restriction complete alcohol cessation recommended mild wheezing/asthma. 5 day prednisone burst. can use cough syrup as needed for any cough and prn breathing treatments follow up with PCP after d/c from SNF <ALICIA Ma - Last Filed: 03/29/21 12:09> Assessment: see dischage summary I saw and examined the patient and discussed finding, management and disposition with ALICIA, and I agree with above, except as otherwise stated <ALICIA Ma - Last Filed: 03/29/21 12:09> Discharge Date/Time: 03/29/21 15:10 <ALICIA Ma - Last Filed: 03/29/21 12:09>
[2021-03-28 11:03] LABS: Glucose, Whole Blood 123 mg/dL (60-115)
--- NOTE | 2021-03-28 11:17 | MHC.CM.PN ---
Addendum entered by Diamante Stallings 03/28/21 12:05: [facility] unable to accept pt today due to her CIWA score. CM did inform them the pt is not showing signs of withdrawal, she is disoriented to place at baseline however per protocol, they have to postpone. Per discussion with SNF, pt can DC to STR tomorrow morning. HCP informed. Original Note: CM CONTACTED PTS HCP/CAREGIVER, MIKO ([phone]) TO DISCUSS PTS DC PLAN. HE IS AWARE [facility] IS OFFERING PT A BED. HE REPORTS HE IS AGREEABLE TO PT GOING HERE IT IS IMPORTANT SHE BE IN [place] SO THAT HE CAN SEE HER. MIKO REPORTS THE PT IS NOT VACCINATED. HE SAYS THE PT DID GO FOR HER INITIAL SHOT BUT THEN NEVER WENT FOR THE FOLLOW UP DOSE. PT WILL DISCHARGE TO [facility] TODAY VIA BLS
--- NOTE | 2021-03-28 12:16 | P.PNIM_ITS ---
Subjective Subjective Date of Service: 03/28/21 Interval History: seen and examined this morning, follow up for hyponatremia Observed sitting in bed eating breakfast, Awake and alert reports dry cough, sore throat Review of Systems Review of Systems: Yes all other systems are reviewed and are negative Constitutional Constitutional: Denies chills and Denies fever(s) Cardiovascular Cardiovascular: Denies chest pain Respiratory Respiratory: Reports cough Gastrointestinal Gastrointestinal: Denies abdominal pain Physical Exam Vital Signs: Vital Signs: Last Vital Signs Temp 97.2 F 03/28/21 11:23 Pulse 59 03/28/21 11:23 Resp 17 03/28/21 11:23 BP 144/74 H 03/28/21 11:23 Pulse Ox 97 03/28/21 11:23 Body Mass Index 39.8 Const: General: comfortable, well developed, alert and awake Nutritional Appearance: well nourished HENMT: Head: Yes normocephalic and Yes atraumatic Eyes: Sclerae: sclerae normal Resp: Other: scattered wheezes Effort & Inspection: normal respiratory effort, able to speak in complete sentences and no respiratory distress Cardio: Rate: regular rate Rhythm: regular rhythm GI: Palpation (GI): Soft to palpation and nontender Neuro: Cranial nerves: Yes CN's II-XII intact bilaterally and Yes Bilaterally intact EOM present Objective Data Current Medications Generic Name Dose Route Start Last Admin Trade Name Freq PRN Reason Stop Dose Admin Acetaminophen 650 mg 03/26/21 06:24 03/28/21 08:02 Acetaminophen 325 Mg Tablet PO 650 mg Q6H PRN Administration Pain, Mild (Pain Scale 1-3) Albuterol Sulfate 2 puff 03/26/21 06:24 03/27/21 11:12 Albuterol Sulfate 90 Mcg 8 Gm Inhaler INHALE 2 puff Q4H PRN Administration Shortness Of Breath Or Wheezing Albuterol/Ipratropium 3 ml 03/26/21 06:24 03/28/21 08:20 Albuterol/Iprat 2.5/0.5mg 3 Ml Ampul.Neb INHALE 3 ml QID PRN Administration Shortness Of Breath Or Wheezing Aspirin 81 mg 03/26/21 09:00 03/28/21 08:02 Aspirin Enteric Coated 81 Mg Tablet. PO 81 mg DAILY YUMIKO Administration Baclofen 20 mg 03/26/21 06:24 Baclofen 20 Mg Tablet PO DAILY PRN Pain Clonazepam 1 mg 03/26/21 09:00 03/28/21 08:02 Clonazepam 1 Mg Tablet PO 1 mg BID YUMIKO Administration Docusate Sodium 100 mg 03/26/21 06:24 Docusate Sodium 100 Mg Capsule PO DAILY PRN Constipation Fluticasone Propionate 1 puff 03/26/21 08:00 03/28/21 07:24 Fluticasone Propionate 250 Mcg Blst.W.Dev INHALE Not Given RBID [facility] Folic Acid 1 mg 03/26/21 09:00 03/28/21 08:03 Folic Acid 1 Mg Tablet PO 1 mg DAILY YUMIKO Administration Furosemide 20 mg 03/26/21 09:00 03/28/21 08:02 Furosemide 20 Mg Tablet PO 20 mg DAILY YUMIKO Administration Protocol Guaifenesin 5 ml 03/28/21 09:41 Guaifenesin 100 Mg/5 Ml Liquid PO Q6H PRN Cough Heparin Sodium (Porcine) 5,000 unit 03/26/21 06:24 03/28/21 06:02 Heparin Sodium,Porcine 5,000 Unit/Ml Vial SUBCUT 5,000 unit Q12H YUMIKO Administration Insulin Human Lispro 0 unit 03/26/21 07:30 03/28/21 11:40 Insulin Lispro 100 Unit/Ml 3 Ml Vial SUBCUT Not Given QIDACHS [facility] Protocol Metoprolol Succinate 50 mg 03/26/21 09:00 03/28/21 08:02 Metoprolol Succinate Er 50 Mg Tab.Er.24h PO 50 mg DAILY YUMIKO Administration Protocol Montelukast Sodium 10 mg 03/26/21 21:00 03/27/21 21:29 Montelukast Sodium 10 Mg Tablet PO 10 mg BEDTIME YUMIKO Administration Nicotine 14 mg 03/27/21 10:00 03/28/21 08:01 Nicotine 14 Mg Patch.Td24 TRANSDERMA 14 mg DAILY YUMIKO Administration Ondansetron HCl 4 mg 03/26/21 06:24 Ondansetron Hcl 4 Mg/2 Ml Vial IVPUSH Q8H PRN Nausea and Vomiting Pravastatin Sodium 20 mg 03/26/21 21:00 03/27/21 21:29 Pravastatin Sodium 20 Mg Tablet PO 20 mg BEDTIME YUMIKO Administration Quetiapine Fumarate 50 mg 03/26/21 09:00 03/28/21 08:02 Quetiapine Fumarate 50 Mg Tablet PO 50 mg BID YUMIKO Administration Senna 8.6 mg 03/26/21 06:24 Sennosides 8.6 Mg Tablet PO BID PRN constipation Thiamine HCl 100 mg 03/26/21 09:00 03/28/21 08:02 Thiamine Hcl 100 Mg Tablet PO 100 mg DAILY YUMIKO Administration Labs CBC & Chem 7: 03/27/21 05:37 03/28/21 04:43 Labs: Laboratory Results - last 24 hr 03/27/21 03/27/21 03/28/21 15:16 19:43 04:43 Sodium 136 Potassium 4.3 Chloride 101 Carbon Dioxide 25 Anion Gap 14 BUN 29 H Creatinine 1.38 Estim Creat Clear Calc 45.1 Estimated GFR 38 POC Glucose 101 154 H Random Glucose 92 Calcium 9.2 03/28/21 03/28/21 06:57 10:54 Sodium Potassium Chloride Carbon Dioxide Anion Gap BUN Creatinine Estim Creat Clear Calc Estimated GFR POC Glucose 102 123 H Random Glucose Calcium Quality Stroke Does the patient have a stroke diagnosis?: No VTE Prior VTE?: No VTE Risk Level:: Medical - moderate - high VTE Device Contraindication: Treatment Not Indicated VTE Drug Contraindication: N/A - Med Ordered Assessment and Plan (1) Encephalopathy: Status: Acute (2) Alcohol use disorder: Status: Acute (3) Acute hyponatremia: Status: Acute (4) SAGAR (acute kidney injury): Status: Acute Assessment and Plan: 65-year-old female with past medical history of hypotonic hyponatremia presents to the hospital with increased confusion as well as sleepiness found to have sodium of 124 #Acute metabolic encephalopathy due to hyponatremia appears back to baseline # hyponatremia--likely multifactorial, beer related, liver disease, excessive water intake SNa improved to >130 now with improvement in her encephalopathy continue free water restrictions #asthma mild wheezing will start po prednisone -prn breathing treatments # SAGAR on CKD SCr improved # HTN improving, monitor # DM ISS # Chronic CHF, unspecified continue baseline meds Full Code DVT pptx, subcut. heparin dispo: anticipate d/c to rehab tomorrow
[2021-03-28] MEDS: predniSONE 20 MG TABLET 40 MG PO (14:28)
[2021-03-28 16:10] LABS: Glucose, Whole Blood 135 mg/dL (60-115)
[2021-03-28] MEDS: guaiFENesin 100 MG/5 ML LIQUID PO (18:41)
[2021-03-28 20:00] LABS: Glucose, Whole Blood 178 mg/dL (60-115)
[2021-03-28] MEDS: Fluticasone Propionate 250 MCG BLST.W.DEV 1 PUFF INHALE (20:31)
[2021-03-28] MEDS: Albuterol Sulfate 90 MCG 8 GM INHALER 2 PUFF INHALE (20:39)
[2021-03-28] MEDS: Montelukast Sodium 10 MG TABLET PO (21:01)
[2021-03-28] MEDS: Pravastatin Sodium 20 MG TABLET PO (21:01)
[2021-03-28] MEDS: Insulin Lispro 100 UNIT/ML 3 ML VIAL SUBCUT (21:01)
[2021-03-29 03:15] VITALS: BP 148/68; PULSE 64; RESP 20; TEMP 36.3; O2SAT 98
[2021-03-29] MEDS: guaiFENesin 100 MG/5 ML LIQUID PO (03:38)
[2021-03-29] MEDS: Acetaminophen 325 MG TABLET 650 MG PO ×2 (03:38→13:10)
[2021-03-29] MEDS: Albuterol/Iprat 2.5/0.5MG 3 ML AMPUL.NEB INHALE (03:56)
[2021-03-29 03:57] VITALS: PULSE 62; O2SAT 99
[2021-03-29] MEDS: Heparin Sodium,Porcine 5,000 UNIT/ML VIAL 5000 UNIT SUBCUT (05:52)
[2021-03-29 07:20] LABS: Glucose, Whole Blood 126 mg/dL (60-115)
[2021-03-29 07:30] VITALS: BP 152/69; RESP 20; TEMP 36.2; O2SAT 98
[2021-03-29] MEDS: Furosemide 20 MG TABLET PO (07:56)
[2021-03-29] MEDS: Folic Acid 1 MG TABLET PO (07:57)
[2021-03-29] MEDS: QUEtiapine Fumarate 50 MG TABLET PO (07:57)
[2021-03-29] MEDS: clonazePAM 1 MG TABLET PO (07:57)
[2021-03-29] MEDS: Thiamine HCL 100 MG TABLET PO (07:57)
[2021-03-29] MEDS: Aspirin Enteric Coated 81 MG TABLET.DR PO (07:57)
[2021-03-29] MEDS: Nicotine 14 MG PATCH.TD24 TRANSDERMA (07:58)
[2021-03-29 08:01] VITALS: BP 152/69; PULSE 82
[2021-03-29] MEDS: Metoprolol Succinate ER 50 MG TAB.ER.24H PO (08:01)
[2021-03-29 11:21] LABS: Glucose, Whole Blood 118 mg/dL (60-115)
[2021-03-29 12:00] VITALS: BP 144/68; PULSE 53; RESP 20; TEMP 36.6; O2SAT 97
--- NOTE | 2021-03-29 12:37 | MHC.CM.PN ---
PT IS CLEARED FOR DC TO [facility] TODAY, KAMILA SPOKE TO PTS HCP, MIKO ([phone]) AND INFORMED HIM OF PTS DC. HE IS AWARE HE WILL NEED TO GIVE VERBAL CONSENT FOR PT TO BE TREATED AT THE SNF HER HCP IS INVOKED. PT WILL DC TO [facility] TODAY VIA [facility] AT 1500 HOURS
== END 2021-03-29 15:10 | disposition skilled nursing facility (03) | DRG 640 ==
LOC: HO.ED 03-26 04:06 → HO.EDOVER 03-26 06:11 → HO.IMC 03-26 06:40
PROVIDERS: Family Medicine; Admitting Provider Internal Medicine; Emergency Provider Internal Medicine; Visit Provider Internal Medicine
DX: E87.1 Hypo-osmolality and hyponatremia (principal); G93.41 Metabolic encephalopathy; I13.0 Hypertensive heart and chronic kidney disease with heart failure and stage 1 through stage 4 chronic kidney disease, or unspecified chronic kidney disease; N17.9 Acute kidney failure, unspecified; F17.210 Nicotine dependence, cigarettes, uncomplicated; Z71.6 Tobacco abuse counseling; F10.10 Alcohol abuse, uncomplicated; F31.9 Bipolar disorder, unspecified; E11.22 Type 2 diabetes mellitus with diabetic chronic kidney disease; N18.9 Chronic kidney disease, unspecified; K76.9 Liver disease, unspecified; I25.10 Atherosclerotic heart disease of native coronary artery without angina pectoris; Z20.822 Contact with and (suspected) exposure to COVID-19; Z79.52 Long term (current) use of systemic steroids; Z79.82 Long term (current) use of aspirin; Z79.84 Long term (current) use of oral hypoglycemic drugs; Z79.899 Other long term (current) drug therapy
CPT/HCPCS: 36415; 70450; 71045; 80048; 80076; 80307; 81001; 82077; 82140; 82436; 82947; 83880; 83930; 83935; 84133; 84300; 84484; 85025; 87635; 93005; 94640; 94644; 97162; 99285; J2060

== ENCOUNTER 2021-05-01 17:07 | Inpatient (IN) | payer MEDICARE, MEDICAID, SELFPAY ==
[2021-05-01] VITALS (7 sets, daily range): BP systolic 149–171; BP diastolic 68–94; PULSE 82–84; RESP 16–23; TEMP 36.7–37.2; O2SAT 97–100; BMI 30.1
--- NOTE | ~2021-05-01 | XR_ITS ---
EXAMINATION: PELVIS AND CHEST. CLINICAL INFORMATION: Trauma. COMPARISON: None TECHNIQUE: 2 views pelvis and one view chest. FINDINGS: Pelvis: There is severe loss of bilateral hip joint space with moderate periarticular spurring and abnormal femoral head contour suggestive of moderate to severe degenerative arthritis. No visible acute fracture, dislocation or subluxation seen. There is a large lucency along the left acetabulum likely a subchondral cyst. The SI joints are symmetrical and normal. CHEST: The lungs are well-expanded and clear. The heart size and pulmonary vascularity is normal. There is loss of bilateral glenohumeral joint space with periarticular spurring. XR/XR pelvis 1-2V IMPRESSION: Moderate to severe degenerative changes bilateral hip joints. No visible acute fracture, dislocation or subluxation seen. Large lucency along the left subchondral acetabulum likely subchondral cysts. No acute cardiac pulmonary process seen the chest. Mild degenerative arthritic changes bilateral shoulder joints.
--- NOTE | ~2021-05-01 | CT_ITS ---
EXAMINATION: CT BRAIN AND CT CERVICAL SPINE WITHOUT CONTRAST. CLINICAL INFORMATION: Trauma. COMPARISON: CT brain 03/26/2021 TECHNIQUE: 2 mm thin axial and reformatted 2 mm thin sagittal and coronal images of cervical spine were obtained. Subsequently 3 with thin axial and reformatted 2 mm thin sagittal and coronal images of cervical spine were obtained. DL [id number]. FINDINGS: BRAIN: There is no acute intra-axial, extra-axial bleed, masses, edema or midline shift. There is no acute infarction in evolution. There is no mass effect or edema. The lateral ventricles are symmetrical in size and mildly prominent. The kim to white matter differentiation is preserved normal. Bone windows reveal no calvarial abnormality. There is benign hyperostosis frontalis interna. The scalp soft tissues are normal. Bilateral paranasal sinuses and mastoid air cells are well-aerated. CERVICAL SPINE: There is mild straightening of cervical lordosis. The vertebral heights are normal. There is grade 1 anterolisthesis C3 over C4. Rest of the vertebral alignment is normal. There is loss of C4-C5, C5-C6, C6-7 and C7-T1 disc heights with moderate ventral spondylosis. No visible acute fracture or dislocation seen. There are large moderate bridging osteophytes from C3-C4 through C7-T1 disc levels. No lytic or sclerotic process seen. CT/CT head/brain wo con IMPRESSION: Limited exam secondary to significant patient motion. No acute intracranial process seen. There is straightening of cervical lordosis with degenerative disc changes and significant ventral spondylosis with bridging osteophytes. No visible acute fracture seen.
--- NOTE | ~2021-05-01 | XR_ITS ---
EXAMINATION: XR CHEST CLINICAL INFORMATION: Line placement COMPARISON: Chest x-ray from 7:26 PM today TECHNIQUE: Frontal view of the chest was obtained. XR/XR chest 1V FINDINGS/IMPRESSION: Interval insertion of suspected right-sided jugular catheter with tip terminating within the distal SVC. No pneumothorax. The lungs are well aerated without lobar consolidation.
--- NOTE | ~2021-05-01 | XR_ITS ---
EXAMINATION: PELVIS AND CHEST. CLINICAL INFORMATION: Trauma. COMPARISON: None TECHNIQUE: 2 views pelvis and one view chest. FINDINGS: Pelvis: There is severe loss of bilateral hip joint space with moderate periarticular spurring and abnormal femoral head contour suggestive of moderate to severe degenerative arthritis. No visible acute fracture, dislocation or subluxation seen. There is a large lucency along the left acetabulum likely a subchondral cyst. The SI joints are symmetrical and normal. CHEST: The lungs are well-expanded and clear. The heart size and pulmonary vascularity is normal. There is loss of bilateral glenohumeral joint space with periarticular spurring. XR/XR chest 1V IMPRESSION: Moderate to severe degenerative changes bilateral hip joints. No visible acute fracture, dislocation or subluxation seen. Large lucency along the left subchondral acetabulum likely subchondral cysts. No acute cardiac pulmonary process seen the chest. Mild degenerative arthritic changes bilateral shoulder joints.
--- NOTE | ~2021-05-01 | CT_ITS ---
EXAMINATION: CT BRAIN AND CT CERVICAL SPINE WITHOUT CONTRAST. CLINICAL INFORMATION: Trauma. COMPARISON: CT brain 03/26/2021 TECHNIQUE: 2 mm thin axial and reformatted 2 mm thin sagittal and coronal images of cervical spine were obtained. Subsequently 3 with thin axial and reformatted 2 mm thin sagittal and coronal images of cervical spine were obtained. DL 2032. FINDINGS: BRAIN: There is no acute intra-axial, extra-axial bleed, masses, edema or midline shift. There is no acute infarction in evolution. There is no mass effect or edema. The lateral ventricles are symmetrical in size and mildly prominent. The kim to white matter differentiation is preserved normal. Bone windows reveal no calvarial abnormality. There is benign hyperostosis frontalis interna. The scalp soft tissues are normal. Bilateral paranasal sinuses and mastoid air cells are well-aerated. CERVICAL SPINE: There is mild straightening of cervical lordosis. The vertebral heights are normal. There is grade 1 anterolisthesis C3 over C4. Rest of the vertebral alignment is normal. There is loss of C4-C5, C5-C6, C6-7 and C7-T1 disc heights with moderate ventral spondylosis. No visible acute fracture or dislocation seen. There are large moderate bridging osteophytes from C3-C4 through C7-T1 disc levels. No lytic or sclerotic process seen. CT/CT cervical spine wo con IMPRESSION: Limited exam secondary to significant patient motion. No acute intracranial process seen. There is straightening of cervical lordosis with degenerative disc changes and significant ventral spondylosis with bridging osteophytes. No visible acute fracture seen.
--- NOTE | 2021-05-01 17:24 | ED_ITS ---
HPI - Fall General Chief Complaint: Fall Stated Complaint: etoh fall Time Seen by Provider: 05/01/21 17:13 Source: patient and EMS Mode of arrival: EMS Limitations: other (alcohol intoxication) History of Present Illness HPI Narrative: This is a 65 years old female with history of alcohol abuse presented by ambulance after a fall . Initially refused transport to the hospital. EMS requested medical control to get an order to not transport the patient to the emergency department because at they arrival she refused care , I instructed EMS via radio(recorded line) to trasport the pt even against her will because unable to make informed refusal with presumed intoxication/and possible head injury . MD complaint: fall Onset (ago): hour(s) (1) Fall witnessed: yes, by family Place fall occurred: home Loss of consciousness: none Prolonged down time: no Symptoms prior to fall: none Context: tripped/slipped and alcohol use Related Data Home Medications Medication Instructions Recorded Confirmed albuterol sulfate 90 mcg/actuation 2 puff INHALATION Q4H PRN 08/18/20 03/26/21 aerosol inhaler (Ventolin HFA) aspirin 81 mg tablet,delayed 81 mg PO BEDTIME 08/18/20 03/26/21 release fluticasone propionate 220 1 puff INHALATION BID 08/18/20 03/26/21 mcg/actuation HFA aerosol inhaler (Flovent HFA) ipratropium 0.5 mg-albuterol 3 mg 1 amp INHALATION QID PRN 08/18/20 03/26/21 (2.5 mg base)/3 mL nebulization soln montelukast 10 mg tablet 10 mg PO QPM 08/18/20 03/26/21 baclofen 20 mg tablet 20 mg PO DAILY PRN 10/10/20 03/26/21 clonazepam 1 mg tablet 1 mg PO BID 10/10/20 03/26/21 pravastatin 20 mg tablet 20 mg PO BEDTIME 10/10/20 03/26/21 quetiapine 50 mg tablet 50 mg PO BID 10/10/20 03/26/21 metformin 500 mg tablet 500 mg PO DAILY 11/04/20 03/26/21 acetaminophen 650 mg 1 tab PO BID PRN 02/04/21 03/26/21 tablet,extended release folic acid 1 mg tablet 1 tab PO QAM 02/04/21 03/26/21 sennosides 8.6 mg tablet (senna) 1 tab PO BID PRN 02/04/21 03/26/21 thiamine HCl (vitamin B1) 100 mg 1 tab PO QAM 02/04/21 03/26/21 tablet Previous Rx's Medication Instructions Recorded furosemide 20 mg tablet (Lasix) 20 mg PO DAILY #30 tab 10/21/20 metoprolol succinate 50 mg 50 mg PO DAILY 30 Days #30 tab 11/08/20 tablet,extended release 24 hr prednisone 20 mg tablet 40 mg PO DAILY 5 Days #10 tab 03/28/21 Allergies Allergy/AdvReac Type Severity Reaction Status Date / Time advair Allergy Unknown Unknown Uncoded 03/25/21 20:12 paxil Allergy Unknown Unknown Uncoded 02/12/21 20:38 From PAXIL AdvReac Intermediate NAUSEA & Uncoded 02/12/21 20:38 VOMITING Review of Systems Review of Systems: Yes all other systems are reviewed and are negative Cardiovascular: Cardiovascular: Denies chest pain Gastrointestinal: Gastrointestinal: Denies diarrhea, Denies loose stools and Denies vomiting Musculoskeletal: Musculoskeletal: Reports no additional musculoskeletal complaints Psychiatric: Psychiatric: Reports no additional psychiatric complaints [facility] Past Medical History Attestation statement: The following information was validated with the patient. Source: unable to obtain Medical History Acute hyponatremia Bipolar 1 disorder Bipolar I disorder Congestive heart failure COPD (chronic obstructive pulmonary disease) Coronary artery disease Diabetes Hypertension Osteoarthritis Sleep apnea Surgical History Hx of appendectomy Social History Social History Household Members: Unknown / Unable to assess Housing: Apartment Unable to assess alcohol history related to: Unknown Alcohol intake: unknown Patient Tobacco Use Status: Current everyday Tobacco user Tobacco use type: Cigarette Cigarettes Per Day: 5 Years Smoked: 52 e-Cigarette/Vaping Use: Currently Using Second Hand Smoke Exposure: No Use of substances other than those prescribed or required for medical reasons: Unknown Substance Use Type: Marijuana Advance Directives: No Advance Directives Information Provided: Yes Recently lost weight without trying: Unsure Nutrition Risks: On aspiration precautions service: No Current occupational status: unemployed, disabled and other Physical Exam Vital Signs: Vital Signs: Last Vital Signs Temp 98.6 F 05/01/21 23:59 Pulse 84 05/01/21 23:59 Resp 19 05/01/21 23:59 BP 171/85 H 05/01/21 23:59 Pulse Ox 100 05/01/21 23:59 Body Mass Index 30.1 Const: Other: Patient is awake and alert in not acute distress General: no acute distress, well developed, alert, awake and Physically active Orientation/consciousness: oriented to place HENMT: Head: Yes normal to inspection, Yes No palpable skull fracture present and Yes atraumatic General nose exam: Normal external nose present Face and sinus: Yes normal facial exam Mouth: Normal oral and palatal mucosa present and lip normal Throat: Yes posterior oropharynx normal Neck: Other: supple Neck: Yes normal visual inspection, Yes full ROM and Yes no lymphadenopathy Chest: Chest palpation & inspection: normal inspection of the chest and normal palpation of entire chest wall Resp: Effort & Inspection: normal respiratory effort Auscultation: clear to auscultation bilaterally Cardio: Jugular venous distension: no JVD Rhythm: abnormal rhythm GI: Inspection: Yes normal to inspection Palpation (GI): Soft to palpation, not firm, nontender and no guarding Skin: General skin exam: no rashes or lesions noted and elasticity normal Trauma: no lacerations or abrasions Wounds: no wounds Neuro: Other: Patient is awake and alert she is able to tell me that she is in the hospital she follow comand ,cranil nerve intact ,nove all extremities General: oriented to place Cranial nerves: Yes CN's II-XII intact bilaterally Course Reevaluation(s) Reevaluation #1: Sodium a noted [address] a spoke with the farm products shipper Dr Caroline topete saline 100 cc h(no hypertonic) Time: 19:26 Reevaluation #2: Spoke with the machine operations supervisor dr Harrison reccomeradha no fluids he will bring pt to the Unit and place order. At this time patient is awake and alert she is able to tell me that she is at the hospital she does not know the day. The care was transfer to the ICU team Dr Harrison Time: 19:33 Reevaluation #3: ICU team here bedside Time: 20:11 Additional Reevaluation(s): pt ws trasfered ICU,hypertonic to be started in ICU(i placed order for hypertonic in ED because pt becoming more confused); per ICU team/central line will be place in ICU per ICU team Consultations Consultation #1: renal Dr Gallegos MDM - Fall MDM Narrative Medical decision making narrative: This is 65 years old with hx of alcohol abuse presented after a fall we will do CT scan of the head the C-spine will re- evaluated when she is more sober Lab Data Attestation: I reviewed the patient's lab results. Result diagrams: 05/01/21 18:28 05/01/21 22:15 Labs: Lab Results 05/01/21 05/01/21 05/01/21 Range/Units 18:28 18:28 18:28 WBC 14.9 H (4.8-10.8) X10*3/uL RBC 3.54 L (4.20-5.50) X10*6/uL Hgb 11.3 L (12.0-16.0) g/dl Hct 30.1 L (37-47) % MCV 85.0 (80-98) fL MCH 31.9 (27.0-33.0) pg MCHC 37.5 H (31.0-35.0) g/dl RDW 12.0 (11.0-16.0) % Plt Count 220 D (160-400) X10*3/uL MPV 9.3 L (9.4-12.3) fL Immature Gran % (Auto) 1.2 H (0.0-0.4) % Neut % (Auto) 85.4 H (45-73) % Lymph % (Auto) 4.0 L (20-40) % [place] % (Auto) 9.2 (2-11) % Eos % (Auto) 0.1 (0-4) % Baso % (Auto) 0.1 (0-2) % Lymph # (Auto) 0.6 L (1.2-4.9) X10*3/uL [place] # (Auto) 1.4 H (0.1-1.2) X10*3/uL Eos # (Auto) 0.0 (0.0-0.4) X10*3/uL Baso # (Auto) 0.0 (0.0-0.2) X10*3/uL Abs Immat Gran (auto) 0.18 H (0.00-0.03) X10*3/uL Absolute Neuts (auto) 12.8 H (2.0-8.3) X10*3/uL Absolute Nucleated RBC 0.000 (0.0-0.012) X10*3/uL Nucleated RBC % (auto) 0.0 (0.0-0.2) /100WBC Sodium 103 L* D (135-145) mmol/L Potassium 4.5 (3.3-5.1) mmol/L Chloride 73 L D (96-108) mmol/L Carbon Dioxide 18 L (22-29) mmol/L Anion Gap 17 (12-20) BUN 10 D (9-16) mg/dL Creatinine 0.91 (0.5-1.4) mg/dL Estim Creat Clear Calc 58.9 Estimated GFR > 60 Random Glucose 134 H D (60-115) mg/dL Osmolality (281-305) mosm/kg Calcium 8.3 L D (8.4-10.2) mg/dL Total Bilirubin 0.6 (0.0-1.0) mg/dL AST 26 D (5-31) U/L ALT 16 (0-31) U/L Alkaline Phosphatase 89 (39-117) U/L Total Protein 6.8 (6.5-8.0) g/dL Albumin 3.8 (3.5-5.0) g/dL Ethyl Alcohol < 10 mg/dL 05/01/21 Range/Units 18:28 WBC (4.8-10.8) X10*3/uL RBC (4.20-5.50) X10*6/uL Hgb (12.0-16.0) g/dl Hct (37-47) % MCV (80-98) fL MCH (27.0-33.0) pg MCHC (31.0-35.0) g/dl RDW (11.0-16.0) % Plt Count (160-400) X10*3/uL MPV (9.4-12.3) fL Immature Gran % (Auto) (0.0-0.4) % Neut % (Auto) (45-73) % Lymph % (Auto) (20-40) % [place] % (Auto) (2-11) % Eos % (Auto) (0-4) % Baso % (Auto) (0-2) % Lymph # (Auto) (1.2-4.9) X10*3/uL [place] # (Auto) (0.1-1.2) X10*3/uL Eos # (Auto) (0.0-0.4) X10*3/uL Baso # (Auto) (0.0-0.2) X10*3/uL Abs Immat Gran (auto) (0.00-0.03) X10*3/uL Absolute Neuts (auto) (2.0-8.3) X10*3/uL Absolute Nucleated RBC (0.0-0.012) X10*3/uL Nucleated RBC % (auto) (0.0-0.2) /100WBC Sodium (135-145) mmol/L Potassium (3.3-5.1) mmol/L Chloride (96-108) mmol/L Carbon Dioxide (22-29) mmol/L Anion Gap (12-20) BUN (9-16) mg/dL Creatinine (0.5-1.4) mg/dL Estim Creat Clear Calc Estimated GFR Random Glucose (60-115) mg/dL Osmolality 220 L (281-305) mosm/kg Calcium (8.4-10.2) mg/dL Total Bilirubin (0.0-1.0) mg/dL AST (5-31) U/L ALT (0-31) U/L Alkaline Phosphatase (39-117) U/L Total Protein (6.5-8.0) g/dL Albumin (3.5-5.0) g/dL Ethyl Alcohol mg/dL ECG Data Attestation: I personally reviewed and interpreted this ECG as follows: ECG interpretation date: 05/01/21 ECG interpretation time: 18:12 Pacemaker model: Normal sinus rhythm rate 95 artifact present no ischemia seen Critical Care Time Critical Care Time Critical Care Time: Yes Total Critical Care Time: 30 Attestation: Time spent caring for the patient, pre-hospital EMS medical control, speaking with the nephrology and the machine operations supervisor Discharge Plan Discharge Clinical Impression: Acute hyponatremia Patient Disposition: Admitted As Inpatient Interventions: Admission Worksheet (ED) Last Done: 05/01/21 20:13 Discharge Date/Time: 05/01/21 20:13
[2021-05-01 18:32] LABS: MANUAL DIFF FLAG NO
[2021-05-01 18:49] LABS: Ethanol < 10 mg/dL
[2021-05-01 19:01] LABS: Alanine Aminotransferase 16 U/L (0-31); Albumin Level 3.8 g/dL (3.5-5.0); Alkaline Phosphatase 89 U/L (39-117); Anion Gap 17 (12-20); Aspartate Amino Transferase 26 U/L (5-31); Bilirubin Total 0.6 mg/dL (0.0-1.0); Blood Urea Nitrogen 10 mg/dL (9-16); Calcium 8.3 mg/dL (8.4-10.2); Carbon Dioxide 18 mmol/L (22-29); Chloride 73 mmol/L (96-108); Creatinine Clr Calc Pharmacy 58.9; Estimated Glomerular Filt Rate > 60; Glucose Random 134 mg/dL (60-115); Potassium 4.5 mmol/L (3.3-5.1); Sodium 103 mmol/L (135-145); Total Protein 6.8 g/dL (6.5-8.0)
[2021-05-01 19:18] LABS: Basophils Percent Auto 0.1 % (0-2); Eosinophils Percent Auto 0.1 % (0-4); Hematocrit 30.1 % (37-47); Hemoglobin 11.3 g/dl (12.0-16.0); Imm Gran Abs Auto 0.18 X10*3/uL (0.00-0.03); Imm Gran Pct Auto 1.2 % (0.0-0.4); Lymphocytes Absolute Auto 0.6 X10*3/uL (1.2-4.9); Mean Corpuscular HGB Conc 37.5 g/dl (31.0-35.0); Mean Corpuscular Hemoglobin 31.9 pg (27.0-33.0); Mean Platelet Volume 9.3 fL (9.4-12.3); Monocytes Absolute Auto 1.4 X10*3/uL (0.1-1.2); Monocytes Percent Auto 9.2 % (2-11); Neutrophils Absolute Auto 12.8 X10*3/uL (2.0-8.3); Neutrophils Percent Auto 85.4 % (45-73); Platelet Count 220 X10*3/uL (160-400); Red Blood Count 3.54 X10*6/uL (4.20-5.50); White Blood Count 14.9 X10*3/uL (4.8-10.8)
--- NOTE | 2021-05-01 19:44 | PC.NURSE ---
SEIZURE PADS IN PLACE, NSR ON MONITOR AT THIS TIME. REMAINS ALTERED, FFORGGETUL, UNABLE TO ANSWER QUESTIONS AND FOLLOW COMMANDS APPROPRIATELY. PT IS RESTLESS. EVALUATED BY ICU, TO BE TRANSPORTED JERRY.
[2021-05-01 20:05] LABS: Osmolality, Serum 220 mosm/kg (281-305)
[2021-05-01] MEDS: Morphine Sulfate 2 MG/ML CARTRIDGE 1 MG IVPUSH (21:03)
[2021-05-01 21:31] LABS: Osmolality Urine 107 mosm/kg (373-1093)
--- NOTE | 2021-05-01 21:34 | W.PM.CCHP ---
Procedures Date of Service Date of Service: 05/01/21 Central Line Placement Right IJ: Central Line Comments: Emergent Right internal jugular triple lumen central venous catheter placed in usual sterile conditions under ultrasound guidance for appropriate vascular access without immediate complications. Central line position verified with Chest XRAY. Consent for Procedure: Emergent-no informed consent obtained Time out performed: Yes Sterile Technique Used: Yes Patient placed on monitor/pulse ox: Yes MD prep: mask, gown and gloves Central line prep: Povidone-Iodine 1% Local anesthesia used: lidocaine 1% Ultrasound used for placement: Yes Central line lumen inserted: triple Post procedure: sutured in place, good blood return, all ports aspirated, flushed, capped and sterile dressing applied Post procedure x-ray: tip of catheter in good position and no pneumothorax seen Patient tolerated procedure: well and no complications Complications: none
--- NOTE | 2021-05-01 21:36 | PM.CCHP ---
History of Present Illness Date of Service: 05/01/21 Chief Complaint: Fall This is a 65-year-old female? Slovak-speaking only with a past medical history of congestive heart failure, COPD, DANO, CAD, diabetes, hypertension,? and ETOH abuse who presented to the emergency room? after a fall.? In the emergency patient?s vital signs were stable,? but laboratory data showed? sodium of 103.? Head CT/ Cervical spine/ Pelvis CT negative for acute findings. Initially patient was alert with no significant neural deficits while in the emergency room,? nephrology was consulted, Dr Adams? recommended starting normal saline at 100 mL/hr.? On my assessment of patient,? Patient is lethargic, only alert? to self with significant confusion noted.? Difficult complete neuro exam due to patient unable to follow commands. She is able to move all extremities spontaneously.? Due to significant neural deficits noted during my exam, the? patient qualifies for hypertonic solution. We will admit into the ICU for management and closely monitor of hyponatremia requiring hypertonic saline Review of Systems Review of Systems: Unable to do, due to patient confusion PMFSH Past Medical History Medical History Acute hyponatremia Bipolar 1 disorder Bipolar I disorder Congestive heart failure COPD (chronic obstructive pulmonary disease) Coronary artery disease Diabetes Hypertension Osteoarthritis Sleep apnea Surgical History Surgical History Hx of appendectomy Social History Social History Household Members: Spouse Housing: Apartment Unable to assess alcohol history related to: Unable to respond Alcohol intake: unknown Patient Tobacco Use Status: Current everyday Tobacco user Tobacco use type: Cigarette Cigarettes Per Day: 5 Years Smoked: 52 e-Cigarette/Vaping Use: Currently Using Second Hand Smoke Exposure: No Use of substances other than those prescribed or required for medical reasons: No Substance Use Type: Marijuana Advance Directives: No Advance Directives Information Provided: Yes service: No Current occupational status: unemployed, disabled and other Meds Allergies Allergy/AdvReac Type Severity Reaction Status Date / Time advair Allergy Unknown Unknown Uncoded 03/25/21 20:12 paxil Allergy Unknown Unknown Uncoded 02/12/21 20:38 From PAXIL AdvReac Intermediate NAUSEA & Uncoded 02/12/21 20:38 VOMITING Active Medications: Current Medications Generic Name Dose Route Start Last Admin Trade Name Alexandrea PRN Reason Stop Dose Admin Folic Acid 1 mg 05/02/21 09:00 Folic Acid 1 Mg/0.2 Ml Syringe IVPUSH DAILY [facility] Sodium Chloride 100 ml/ IV 100 mls @ 30 mls/hr 05/01/21 19:38 05/01/21 20:59 Miscellaneous Supplies IV 05/01/21 22:57 30 mls/hr ONCE ONE Administration Thiamine HCl 100 mg 05/02/21 09:00 Thiamine Hcl 200 Mg/2 Ml Vial IVPUSH BID [facility] Home Medications Medication Instructions Recorded Confirmed Last Taken Type albuterol sulfate 90 mcg/actuation 2 puff INHALATION Q4H PRN 08/18/20 03/26/21 Unknown History aerosol inhaler (Ventolin HFA) aspirin 81 mg tablet,delayed 81 mg PO BEDTIME 08/18/20 03/26/21 Unknown History release fluticasone propionate 220 1 puff INHALATION BID 08/18/20 03/26/21 Unknown History mcg/actuation HFA aerosol inhaler (Flovent HFA) ipratropium 0.5 mg-albuterol 3 mg 1 amp INHALATION QID PRN 08/18/20 03/26/21 Unknown History (2.5 mg base)/3 mL nebulization soln montelukast 10 mg tablet 10 mg PO QPM 08/18/20 03/26/21 Unknown History baclofen 20 mg tablet 20 mg PO DAILY PRN 10/10/20 03/26/21 Unknown History clonazepam 1 mg tablet 1 mg PO BID 10/10/20 03/26/21 Unknown History pravastatin 20 mg tablet 20 mg PO BEDTIME 10/10/20 03/26/21 Unknown History quetiapine 50 mg tablet 50 mg PO BID 10/10/20 03/26/21 Unknown History metformin 500 mg tablet 500 mg PO DAILY 11/04/20 03/26/21 Unknown History acetaminophen 650 mg 1 tab PO BID PRN 02/04/21 03/26/21 Unknown History tablet,extended release folic acid 1 mg tablet 1 tab PO QAM 02/04/21 03/26/21 Unknown History sennosides 8.6 mg tablet (senna) 1 tab PO BID PRN 02/04/21 03/26/21 Unknown History thiamine HCl (vitamin B1) 100 mg 1 tab PO QAM 02/04/21 03/26/21 Unknown History tablet Physical Exam Vital Signs: Vital Signs: Last Vital Signs Temp 98.4 F 05/01/21 21:00 Pulse 83 05/01/21 21:00 Resp 20 05/01/21 21:00 BP 156/68 H 05/01/21 21:00 Pulse Ox 100 05/01/21 21:00 Body Mass Index 30.1 Constitutional: Alert, only x self. lethargic HEENT: Normocephalic. Pupils are equal, round and reactive to light. Oropharynx clear, dry mucous membranes . Neck: Supple, Full range of motion. Respiratory: Expiratory wheezing in all lung pedro.? No resp distress. Cardiovascular: S1 S2 regular. No murmurs, rubs or gallops. Gastrointestinal: Abdomen soft, non-tender, non-distended. Normal bowel sounds. No pulsatile mass. No hepatosplenomegaly. Neurologic: Patient is confused, diffucult to follow commands. She does moves all extremities spontaneously. Skin: Multiple bruises on bilateral lower extremities. +1 edema on BLE extremity.? Heme/Lymphatics/Immun: Palpation of neck reveals no swelling or tenderness of neck nodes. Psychiatric: Normal mood and affect Results Labs CBC and Chem 7: 05/01/21 18:28 05/01/21 18:28 Labs: Laboratory Results - last 24 hr 05/01/21 05/01/21 05/01/21 18:28 18:28 18:28 MCV 85.0 MCH 31.9 MCHC 37.5 H RDW 12.0 Plt Count 220 D MPV 9.3 L Immature Gran % (Auto) 1.2 H Neut % (Auto) 85.4 H Lymph % (Auto) 4.0 L [place] % (Auto) 9.2 Eos % (Auto) 0.1 Baso % (Auto) 0.1 Lymph # (Auto) 0.6 L [place] # (Auto) 1.4 H Eos # (Auto) 0.0 Baso # (Auto) 0.0 Abs Immat Gran (auto) 0.18 H Absolute Neuts (auto) 12.8 H Absolute Nucleated RBC 0.000 Nucleated RBC % (auto) 0.0 Anion Gap 17 Estim Creat Clear Calc 58.9 Estimated GFR > 60 Random Glucose 134 H D Osmolality Calcium 8.3 L D Total Bilirubin 0.6 AST 26 D ALT 16 Alkaline Phosphatase 89 Total Protein 6.8 Albumin 3.8 Urine Osmolality Urine Creatinine Ethyl Alcohol < 10 05/01/21 05/01/21 05/01/21 18:28 20:50 20:50 MCV MCH MCHC RDW Plt Count MPV Immature Gran % (Auto) Neut % (Auto) Lymph % (Auto) [place] % (Auto) Eos % (Auto) Baso % (Auto) Lymph # (Auto) [place] # (Auto) Eos # (Auto) Baso # (Auto) Abs Immat Gran (auto) Absolute Neuts (auto) Absolute Nucleated RBC Nucleated RBC % (auto) Anion Gap Estim Creat Clear Calc Estimated GFR Random Glucose Osmolality 220 L Calcium Total Bilirubin AST ALT Alkaline Phosphatase Total Protein Albumin Urine Osmolality 107 L Urine Creatinine Cancelled Ethyl Alcohol Imaging Radiologist's Impressions: Impressions Cervical Spine CT 05/01/21 17:13 IMPRESSION: Limited exam secondary to significant patient motion. No acute intracranial process seen. There is straightening of cervical lordosis with degenerative disc changes and significant ventral spondylosis with bridging osteophytes. No visible acute fracture seen. Head CT 05/01/21 17:13 IMPRESSION: Limited exam secondary to significant patient motion. No acute intracranial process seen. There is straightening of cervical lordosis with degenerative disc changes and significant ventral spondylosis with bridging osteophytes. No visible acute fracture seen. Pelvis X-Ray 05/01/21 17:14 IMPRESSION: Moderate to severe degenerative changes bilateral hip joints. No visible acute fracture, dislocation or subluxation seen. Large lucency along the left subchondral acetabulum likely subchondral cysts. No acute cardiac pulmonary process seen the chest. Mild degenerative arthritic changes bilateral shoulder joints. Chest X-Ray 05/01/21 19:29 IMPRESSION: Moderate to severe degenerative changes bilateral hip joints. No visible acute fracture, dislocation or subluxation seen. Large lucency along the left subchondral acetabulum likely subchondral cysts. No acute cardiac pulmonary process seen the chest. Mild degenerative arthritic changes bilateral shoulder joints. Chest X-Ray 05/01/21 20:31 FINDINGS/IMPRESSION: Interval insertion of suspected right-sided jugular catheter with tip terminating within the distal SVC. No pneumothorax. The lungs are well aerated without lobar consolidation. Assessment and Plan (1) Acute hyponatremia: Status: Acute ?65-year-old female with a past medical history of ETOH abuse and congestive heart failure on Lasix? who was admitted into the ICU for acute hyponatremia with significant neuro changes require hypertonic solution.? ?Plan:? Neuro:? lethargy/confusion:? patient is more lethargic as well as confused,? this is likely from low levels of sodium.? We will continue to replace sodium.? Continue? to closely monitor neuro status as we replace sodium.? Cardiac: ? no acute issues Pulmonary:? No acute issues Renal:? Acute hyponatremia? -? patient has multiple possible causes for hyponatremia.? She does admit to ETOH abuse? and is on Lasix at home.? . Urine studies pending. Due to confusion she is not? a good historian. ? Renal was consulted by the emergency room. ? Hypertonic saline was started in the ICU. Will keep NPO now. Water restriction.? Frequent neuro checks. Serial serum sodium.? Endo:? No acute issues.?? GI: no acute issues?? ID:? leukocytosis-? patient is on prednisone at home.? There is no evidence of infection? at this time.? Continue to trend CBC Heme/Onc:? No acute issues. Psych:? ETOH abuse:? will closely monitor for? signs and symptoms of alcohol withdrawal.? Will start folic/thiamine Miscellaneous: ? no acute issues Diet:NPO ? prophylaxis: Heparin, No GI prophylaxis at this time ? Critical care time:? X 90 minutes of critical care time ?Code? status:? FULL CODE? ?Case discussed with attending Dr Harrison (2) Encephalopathy: Status: Acute (3) SAGAR (acute kidney injury): Status: Acute (4) Alcohol use disorder: Status: Acute Critical Care Time Critical Care Time (minutes): 90
[2021-05-01 21:40] LABS: Creatinine Urine 8.15 mg/dL; Sodium Urine Random < 20.0 mmol/L
[2021-05-01 21:49] LABS: Influenza A PCR NEGATIVE (Negative); Influenza B PCR NEGATIVE (Negative); Resp Syncy Virus RNA Qual PCR NEGATIVE (Negative); SARS COV2 PCR INHOUSE NEGATIVE (Negative)
[2021-05-01] MEDS: Heparin Sodium,Porcine 5,000 UNIT/ML VIAL 5000 UNIT SUBCUT (22:31)
[2021-05-01 23:05] LABS: Anion Gap 14 (12-20); Blood Urea Nitrogen 10 mg/dL (9-16); Calcium 8.5 mg/dL (8.4-10.2); Carbon Dioxide 24 mmol/L (22-29); Chloride 76 mmol/L (96-108); Creatinine Clr Calc Pharmacy 61.6; Estimated Glomerular Filt Rate > 60; Glucose Random 127 mg/dL (60-115); Potassium 3.9 mmol/L (3.3-5.1); Sodium 110 mmol/L (135-145)
[2021-05-02] VITALS (26 sets, daily range): BP systolic 134–176; BP diastolic 49–98; PULSE 80–114; RESP 15–26; TEMP 36.2–37.6; O2SAT 97–100; BMI 33.3
[2021-05-02] MEDS: PHENobarbitaL sodium 130 MG/ML VIAL 168 MG IM (00:12)
--- NOTE | 2021-05-02 01:37 | PC.NURSE ---
Patient admitted via ED approx 1999 for hyponatremia. Upon arrival, patient disoriented, restless, uncooperative. Required 3 staff members to assist with line insertion. Continues to thrash around in bed, pulling at dias and TLC. Attempted telesitter. Pheno started for etoh withdrawal. Soft wrist restraints placed to maintain line patency after patient repeatedly pulled off TLC dressing and attempted to pull TLC. Able to obtain 1:1 sitter. Will attempt to d/c restraints as tolerated. Sluggish 3mm PERRL. +cough/gag. Rouses easily/spontaneously. Follows commands occasionally. Mentation seems to be improving after hypertonic saline admin.
[2021-05-02] MEDS: PHENobarbitaL sodium 130 MG/ML VIAL 126 MG IM ×2 (02:19→05:22)
[2021-05-02 03:02] LABS: Sodium 115 mmol/L (135-145)
[2021-05-02] MEDS: Dextrose 5 % 500 ML 250 ML IVCONT (04:00)
[2021-05-02] MEDS: Heparin Sodium,Porcine 5,000 UNIT/ML VIAL 5000 UNIT SUBCUT ×3 (05:22→21:06)
[2021-05-02 06:18] LABS: MANUAL DIFF FLAG NO
[2021-05-02 06:21] LABS: Basophils Percent Auto 0.1 % (0-2); Hematocrit 31.7 % (37-47); Hemoglobin 11.9 g/dl (12.0-16.0); Imm Gran Abs Auto 0.14 X10*3/uL (0.00-0.03); Imm Gran Pct Auto 0.9 % (0.0-0.4); Lymphocytes Absolute Auto 0.5 X10*3/uL (1.2-4.9); Lymphocytes Percent Auto 3.1 % (20-40); Mean Corpuscular HGB Conc 37.5 g/dl (31.0-35.0); Mean Corpuscular Hemoglobin 31.7 pg (27.0-33.0); Mean Corpuscular Volume 84.5 fL (80-98); Mean Platelet Volume 9.6 fL (9.4-12.3); Monocytes Absolute Auto 1.3 X10*3/uL (0.1-1.2); Monocytes Percent Auto 8.5 % (2-11); Neutrophils Absolute Auto 13.2 X10*3/uL (2.0-8.3); Neutrophils Percent Auto 87.4 % (45-73); Platelet Count 230 X10*3/uL (160-400); Red Blood Count 3.75 X10*6/uL (4.20-5.50); Red Cell Distribution Width 11.9 % (11.0-16.0); White Blood Count 15.1 X10*3/uL (4.8-10.8)
[2021-05-02 06:56] LABS: Alanine Aminotransferase 15 U/L (0-31); Albumin Level 3.6 g/dL (3.5-5.0); Alkaline Phosphatase 82 U/L (39-117); Anion Gap 15 (12-20); Aspartate Amino Transferase 25 U/L (5-31); Bilirubin Total 0.6 mg/dL (0.0-1.0); Blood Urea Nitrogen 9 mg/dL (9-16); Calcium 8.7 mg/dL (8.4-10.2); Carbon Dioxide 24 mmol/L (22-29); Chloride 79 mmol/L (96-108); Creatinine Clr Calc Pharmacy 63.1; Estimated Glomerular Filt Rate > 60; Glucose Random 151 mg/dL (60-115); Phosphorus 1.8 mg/dL (2.7-4.5); Potassium 3.3 mmol/L (3.3-5.1); Sodium 115 mmol/L (135-145); Total Protein 6.6 g/dL (6.5-8.0)
[2021-05-02 07:35] LABS: Glucose, Whole Blood 135 mg/dL (60-115)
[2021-05-02] MEDS: Thiamine HCL 200 MG/2 ML VIAL 100 MG IVPUSH ×2 (10:28→21:09)
--- NOTE | 2021-05-02 10:28 | P.CONNP_ITS ---
History of Present Illness Reason for Consult Consult date: 05/02/21 Chief Complaint Chief complaint: Hyponatremia History of Present Illness Narrative: 65 y/o hF adm with AMS and severe HypoNa 103 and recieved HS ( 3%) d/t severity of AMS and SNa has incr to now 115. Management has included D5W to prevent further incr SNa as lasty 2 SNa 115 and repeat pending Urine studies noted with Uosm 107 and marked UOP c/w ongoing rapid self corre ction PT is poor historian so info obtained from EHR She states she drinksd 4 beers a day typically Rec show recurrent hypoNa but never this low PMH lists bipolar but no rec of her being on [place] Review of Systems Review of Systems Unable to do, due to patient confusion Yes all other systems are reviewed and are negative Cardiovascular: Denies chest pain Gastrointestinal: Denies diarrhea, Denies loose stools and Denies vomiting Musculoskeletal: Reports no additional musculoskeletal complaints Psychiatric: Reports no additional psychiatric complaints [facility] Past Medical History Medical History (Updated 05/02/21 @ 02:07 by Kyra Walters RN) Acute hyponatremia Bipolar 1 disorder Bipolar I disorder Chronic hyponatremia Congestive heart failure COPD (chronic obstructive pulmonary disease) Coronary artery disease Diabetes Hypertension Osteoarthritis Schizophrenia Sleep apnea Surgical History Surgical History Hx of appendectomy Social History Social History Household Members: Unknown / Unable to assess Housing: Apartment Unable to assess alcohol history related to: Unknown Alcohol intake: unknown Patient Tobacco Use Status: Current everyday Tobacco user Tobacco use type: Cigarette Cigarettes Per Day: 5 Years Smoked: 52 e-Cigarette/Vaping Use: Currently Using Second Hand Smoke Exposure: No Use of substances other than those prescribed or required for medical reasons: Unknown Substance Use Type: Marijuana Currently Displaying Signs/Symptoms of Drug Intoxication Withdrawal: No Advance Directives: No Advance Directives Information Provided: Yes Do you have thoughts of harming others: None Do you have a plan to hurt others: No Plan Recently lost weight without trying: Unsure Nutrition Risks: On aspiration precautions service: No Current occupational status: unemployed, disabled and other Meds Allergies Allergy/AdvReac Type Severity Reaction Status Date / Time advair Allergy Unknown Unknown Uncoded 03/25/21 20:12 paxil Allergy Unknown Unknown Uncoded 02/12/21 20:38 From PAXIL AdvReac Intermediate NAUSEA & Uncoded 02/12/21 20:38 VOMITING Active Medications: Current Medications Generic Name Dose Route Start Last Admin Trade Name Alexandrea PRN Reason Stop Dose Admin Folic Acid 1 mg 05/02/21 09:00 Folic Acid 1 Mg/0.2 Ml Syringe IVPUSH DAILY [facility] Heparin Sodium (Porcine) 5,000 unit 05/01/21 22:00 05/02/21 05:22 Heparin Sodium,Porcine 5,000 Unit/Ml Vial SUBCUT 5,000 unit Q8H [facility] Administration Potassium Phosphate 30 mmol/ 510 mls @ 85 mls/hr 05/02/21 08:26 Sodium Chloride IV 05/02/21 14:25 ONCE ONE Medication 1 each 05/02/21 09:00 No Benzodiazepines MISCELLANE DAILY [facility] Phenobarbital 45 mg 05/02/21 21:00 Phenobarbital 15 Mg Tablet PO 05/04/21 09:01 BID [facility] Protocol Phenobarbital 15 mg 05/07/21 09:00 Phenobarbital 15 Mg Tablet PO 05/08/21 09:01 DAILY [facility] Protocol Phenobarbital 15 mg 05/04/21 21:00 Phenobarbital 15 Mg Tablet PO 05/06/21 09:01 BID [facility] Protocol Thiamine HCl 100 mg 05/02/21 09:00 Thiamine Hcl 200 Mg/2 Ml Vial IVPUSH BID [facility] Home Medications Medication Instructions Recorded Confirmed Last Taken Type albuterol sulfate 90 mcg/actuation 2 puff INHALATION Q4H PRN 08/18/20 03/26/21 Unknown History aerosol inhaler (Ventolin HFA) aspirin 81 mg tablet,delayed 81 mg PO BEDTIME 08/18/20 03/26/21 Unknown History release fluticasone propionate 220 1 puff INHALATION BID 08/18/20 03/26/21 Unknown History mcg/actuation HFA aerosol inhaler (Flovent HFA) ipratropium 0.5 mg-albuterol 3 mg 1 amp INHALATION QID PRN 08/18/20 03/26/21 Unknown History (2.5 mg base)/3 mL nebulization soln montelukast 10 mg tablet 10 mg PO QPM 08/18/20 03/26/21 Unknown History baclofen 20 mg tablet 20 mg PO DAILY PRN 10/10/20 03/26/21 Unknown History clonazepam 1 mg tablet 1 mg PO BID 10/10/20 03/26/21 Unknown History pravastatin 20 mg tablet 20 mg PO BEDTIME 10/10/20 03/26/21 Unknown History quetiapine 50 mg tablet 50 mg PO BID 10/10/20 03/26/21 Unknown History metformin 500 mg tablet 500 mg PO DAILY 11/04/20 03/26/21 Unknown History acetaminophen 650 mg 1 tab PO BID PRN 02/04/21 03/26/21 Unknown History tablet,extended release folic acid 1 mg tablet 1 tab PO QAM 02/04/21 03/26/21 Unknown History sennosides 8.6 mg tablet (senna) 1 tab PO BID PRN 02/04/21 03/26/21 Unknown History thiamine HCl (vitamin B1) 100 mg 1 tab PO QAM 02/04/21 03/26/21 Unknown History tablet Physical Exam Vital Signs: Last Vital Signs Temp 99.7 F 05/02/21 10:00 Pulse 89 05/02/21 10:00 Resp 22 H 05/02/21 10:00 BP 163/79 H 05/02/21 10:00 Pulse Ox 100 05/02/21 10:00 Body Mass Index 33.3 Const Other: Patient is awake and alert in not acute distress General: no acute distress, well developed, alert, awake and Physically active Orientation/consciousness: oriented to place [facility] Head: Yes normal to inspection, Yes No palpable skull fracture present and Yes atraumatic General nose exam: Normal external nose present Face and sinus: Yes normal facial exam Mouth: Normal oral and palatal mucosa present and lip normal Throat: Yes posterior oropharynx normal Neck Other: supple Neck: Yes normal visual inspection, Yes full ROM and Yes no lymphadenopathy Chest Chest palpation & inspection: normal inspection of the chest and normal palpa tion of entire chest wall Resp Effort & Inspection: normal respiratory effort Auscultation: clear to auscultation bilaterally Cardio Jugular venous distension: no JVD Rhythm: abnormal rhythm GI Inspection: Yes normal to inspection Palpation (GI): Soft to palpation, not firm, nontender and no guarding Skin General skin exam: no rashes or lesions noted and elasticity normal Trauma: no lacerations or abrasions Wounds: no wounds Neuro Other: Patient is awake and alert she is able to tell me that she is in the hospital she follow comand ,cranil nerve intact ,nove all extremities General: oriented to place Cranial nerves: Yes CN's II-XII intact bilaterally Results Lab Results Result Diagrams: 05/02/21 05:59 05/02/21 05:59 Lab results: Chemistry 05/01/21 05/01/21 05/02/21 18:28 22:15 02:14 Sodium 103 L* D 110 L* 115 L* Potassium 4.5 3.9 Carbon Dioxide 18 L 24 BUN 10 D 10 Creatinine 0.91 0.87 Calcium 8.3 L D 8.5 Phosphorus 05/02/21 05:59 Sodium 115 L* Potassium 3.3 Carbon Dioxide 24 BUN 9 Creatinine 0.85 Calcium 8.7 Phosphorus 1.8 L Hematology 05/01/21 05/02/21 18:28 05:59 WBC 14.9 H 15.1 H Hgb 11.3 L 11.9 L Plt Count 220 D 230 Urine Studies 05/01/21 05/01/21 05/01/21 20:50 20:50 20:50 Urine Osmolality 107 L Urine Creatinine 8.15 Cancelled Assessment and Plan (1) Acute hyponatremia: Status: Acute ?1. Severe Hyponatremia with AMS and clincially appears to be euvolemic Etiol of HypoNa: c/w mixed picture including poor solute intake ( [place]) and excess PO fluid intake and possibly inapp ADH realeas as well; given her history assume this is predominantly chronic HypoNa and so need to correct cautiously as she is in the High-Risk category for development of CPM if too rapid correction. Current expert opinion is to incr the SNa by no more than 4-6 meq per 24 hrs So we have over shot the rate of correction and thus we should correct the over- correction with goal being a SNa target of 107-110 at 24 hrs to achieve this I would give her DDAVP 2 mcg SQ and IV Y8H--paaraupgd we give 3ml/kgx 2 hrs ( if wt 85 kg) then 240 IV D5W x 2 hrs and then recheck SNa--this usu will bring down Sna by 2-4 meq and then monitor as with DSDAVP onboard she will hoppefully not cont to auto-correct REC: as noted above this is a very difful;t case and will reqiuire frequent SNA at least every 2-3 hrours and frequent adjustments of IVF and use of DDAVP I have d/w ICU Dr Harrison in detail and I will follow clsoely with him and the ICU team (2) Encephalopathy: Status: Acute (3) SAGAR (acute kidney injury): Status: Acute (4) Alcohol use disorder: Status: Acute Procedures Date of Service Date of Service: 05/02/21
[2021-05-02] MEDS: Potassium Phosphate 30 MMOL in 0.9 % Sodium Chloride 500 ML 85 MMOL IV (10:35)
--- NOTE | 2021-05-02 10:57 | P.PNCC_ITS ---
Subjective Subjective Date of Service: 05/02/21 Interval History: 65-year-old lady with underlying history of congestive heart failure, COPD, DANO, CAD, diabetes mellitus, hypertension, alcohol abuse, schizophrenia, bipolar disorder admitted on 05/01/2021 with weakness, fall, confusion. Her CT head showed no acute findings. On ER evaluation patient was noted to be significantly hyponatremic with sodium of 103. She also was profoundly confused. Patient was admitted to intensive care unit. She has received 100 cc of hypertonic saline for symptomatic hyponatremia with significant improvement in her confusion. Overnight patient developed early symptoms of alcohol withdrawal and was started on phenobarbital protocol. Critical Care Time (minutes): 45 Physical Exam Vital Signs: Vital Signs: Last Vital Signs Temp 99.7 F 05/02/21 10:00 Pulse 89 05/02/21 10:00 Resp 22 H 05/02/21 10:00 BP 163/79 H 05/02/21 10:00 Pulse Ox 100 05/02/21 10:00 Body Mass Index 33.3 Const: General: no acute distress, alert and awake Eyes: Sclerae: sclerae normal EOM: EOMs intact bilaterally Neck: Neck: Yes no lymphadenopathy, Yes trachea midline and Yes supple Resp: Effort & Inspection: normal respiratory effort and no respiratory distress Auscultation: clear to auscultation bilaterally Cardio: Rate: regular rate Rhythm: regular rhythm Heart sounds: no gallops, no murmurs and no rubs GI: Palpation (GI): Soft to palpation and Other GI palpation findings present ( Nontender) Auscultation: normal bowel sounds Extrem: General: Yes no pedal edema, No clubbing and No cyanosis Objective Data Labs CBC & Chem 7: 05/02/21 05:59 05/02/21 05:59 Labs: Laboratory Results - last 24 hr 05/01/21 05/01/21 05/01/21 18:28 18:28 18:28 WBC 14.9 H RBC 3.54 L Hgb 11.3 L Hct 30.1 L MCV 85.0 MCH 31.9 MCHC 37.5 H RDW 12.0 Plt Count 220 D MPV 9.3 L Immature Gran % (Auto) 1.2 H Neut % (Auto) 85.4 H Lymph % (Auto) 4.0 L [place] % (Auto) 9.2 Eos % (Auto) 0.1 Baso % (Auto) 0.1 Lymph # (Auto) 0.6 L [place] # (Auto) 1.4 H Eos # (Auto) 0.0 Baso # (Auto) 0.0 Abs Immat Gran (auto) 0.18 H Absolute Neuts (auto) 12.8 H Absolute Nucleated RBC 0.000 Nucleated RBC % (auto) 0.0 Sodium 103 L* D Potassium 4.5 Chloride 73 L D Carbon Dioxide 18 L Anion Gap 17 BUN 10 D Creatinine 0.91 Estim Creat Clear Calc 58.9 Estimated GFR > 60 POC Glucose Random Glucose 134 H D Osmolality Calcium 8.3 L D Phosphorus Magnesium Total Bilirubin 0.6 AST 26 D ALT 16 Alkaline Phosphatase 89 Total Protein 6.8 Albumin 3.8 Urine Osmolality Ur Random Sodium Urine Creatinine Ethyl Alcohol < 10 Coronavirus (PCR) SARS-CoV-2 (PCR) Influenza Type A (PCR) Influenza Type B (PCR) RSV RNA Qual (PCR) 05/01/21 05/01/21 05/01/21 18:28 20:50 20:50 WBC RBC Hgb Hct MCV MCH MCHC RDW Plt Count MPV Immature Gran % (Auto) Neut % (Auto) Lymph % (Auto) [place] % (Auto) Eos % (Auto) Baso % (Auto) Lymph # (Auto) [place] # (Auto) Eos # (Auto) Baso # (Auto) Abs Immat Gran (auto) Absolute Neuts (auto) Absolute Nucleated RBC Nucleated RBC % (auto) Sodium Potassium Chloride Carbon Dioxide Anion Gap BUN Creatinine Estim Creat Clear Calc Estimated GFR POC Glucose Random Glucose Osmolality 220 L Calcium Phosphorus Magnesium Total Bilirubin AST ALT Alkaline Phosphatase Total Protein Albumin Urine Osmolality Ur Random Sodium < 20.0 Urine Creatinine 8.15 Ethyl Alcohol Coronavirus (PCR) NEGATIVE SARS-CoV-2 (PCR) Influenza Type A (PCR) NEGATIVE Influenza Type B (PCR) NEGATIVE RSV RNA Qual (PCR) NEGATIVE 05/01/21 05/01/21 05/01/21 20:50 20:50 20:50 WBC RBC Hgb Hct MCV MCH MCHC RDW Plt Count MPV Immature Gran % (Auto) Neut % (Auto) Lymph % (Auto) [place] % (Auto) Eos % (Auto) Baso % (Auto) Lymph # (Auto) [place] # (Auto) Eos # (Auto) Baso # (Auto) Abs Immat Gran (auto) Absolute Neuts (auto) Absolute Nucleated RBC Nucleated RBC % (auto) Sodium Potassium Chloride Carbon Dioxide Anion Gap BUN Creatinine Estim Creat Clear Calc Estimated GFR POC Glucose Random Glucose Osmolality Calcium Phosphorus Magnesium Total Bilirubin AST ALT Alkaline Phosphatase Total Protein Albumin Urine Osmolality 107 L Ur Random Sodium Urine Creatinine Cancelled Ethyl Alcohol Coronavirus (PCR) SARS-CoV-2 (PCR) Cancelled Influenza Type A (PCR) Influenza Type B (PCR) RSV RNA Qual (PCR) 05/01/21 05/02/21 05/02/21 22:15 02:14 05:59 WBC 15.1 H RBC 3.75 L Hgb 11.9 L Hct 31.7 L MCV 84.5 MCH 31.7 MCHC 37.5 H RDW 11.9 Plt Count 230 MPV 9.6 Immature Gran % (Auto) 0.9 H Neut % (Auto) 87.4 H Lymph % (Auto) 3.1 L [place] % (Auto) 8.5 Eos % (Auto) 0.0 Baso % (Auto) 0.1 Lymph # (Auto) 0.5 L [place] # (Auto) 1.3 H Eos # (Auto) 0.0 Baso # (Auto) 0.0 Abs Immat Gran (auto) 0.14 H Absolute Neuts (auto) 13.2 H Absolute Nucleated RBC 0.000 Nucleated RBC % (auto) 0.0 Sodium 110 L* 115 L* Potassium 3.9 Chloride 76 L Carbon Dioxide 24 Anion Gap 14 BUN 10 Creatinine 0.87 Estim Creat Clear Calc 61.6 Estimated GFR > 60 POC Glucose Random Glucose 127 H Osmolality Calcium 8.5 Phosphorus Magnesium Total Bilirubin AST ALT Alkaline Phosphatase Total Protein Albumin Urine Osmolality Ur Random Sodium Urine Creatinine Ethyl Alcohol Coronavirus (PCR) SARS-CoV-2 (PCR) Influenza Type A (PCR) Influenza Type B (PCR) RSV RNA Qual (PCR) 05/02/21 05/02/21 05:59 07:30 WBC RBC Hgb Hct MCV MCH MCHC RDW Plt Count MPV Immature Gran % (Auto) Neut % (Auto) Lymph % (Auto) [place] % (Auto) Eos % (Auto) Baso % (Auto) Lymph # (Auto) [place] # (Auto) Eos # (Auto) Baso # (Auto) Abs Immat Gran (auto) Absolute Neuts (auto) Absolute Nucleated RBC Nucleated RBC % (auto) Sodium 115 L* Potassium 3.3 Chloride 79 L Carbon Dioxide 24 Anion Gap 15 BUN 9 Creatinine 0.85 Estim Creat Clear Calc 63.1 Estimated GFR > 60 POC Glucose 135 H Random Glucose 151 H Osmolality Calcium 8.7 Phosphorus 1.8 L Magnesium 2.0 Total Bilirubin 0.6 AST 25 ALT 15 Alkaline Phosphatase 82 Total Protein 6.6 Albumin 3.6 Urine Osmolality Ur Random Sodium Urine Creatinine Ethyl Alcohol Coronavirus (PCR) SARS-CoV-2 (PCR) Influenza Type A (PCR) Influenza Type B (PCR) RSV RNA Qual (PCR) Quality Stroke Does the patient have a stroke diagnosis?: No VTE Prior VTE?: No VTE Risk Level:: Medical - moderate - high VTE Device Contraindication: N/A - Device Ordered VTE Drug Contraindication: N/A - Med Ordered Progress Note: A&P Assessment and plan (1) Delirium tremens: Status: Acute Assessment and Plan: Assessment: 65-year-old lady admitted with acute symptomatic hyponatremia further complicated by development of delirium tremens Plan: Neuro: Metabolic encephalopathy secondary to acute hypernatremia, resolved with hypertonic saline administration. Now with delirium tremens, continue with phenobarbital protocol. Cardiac: No acute issues. Pulmonary: No acute issues. Renal: Acute symptomatic hypernatremia, likely secondary to poor solute intake. Status post 100 cc of 3% saline with resolution of confusion. Nephrology service care appreciated. Continue with monitoring of electrolytes and target sodium increase of 8-10 mEq per day. Endo: No acute issues. GI: No acute issues. ID: No acute issues Heme/Onc: No acute issues. Psych: No acute issues. Miscellaneous: No acute issues. Prophylaxis: Heparin Diet: Regular Critical care time spent: 45 (2) Acute hyponatremia: Status: Acute (3) Metabolic encephalopathy: Status: Acute
[2021-05-02 10:59] LABS: Potassium 3.3 mmol/L (3.3-5.1)
[2021-05-02 11:00] LABS: Anion Gap 15 (12-20); Blood Urea Nitrogen 10 mg/dL (9-16); Calcium 8.8 mg/dL (8.4-10.2); Carbon Dioxide 26 mmol/L (22-29); Chloride 80 mmol/L (96-108); Creatinine Clr Calc Pharmacy 66.5; Estimated Glomerular Filt Rate > 60; Glucose Random 126 mg/dL (60-115); Sodium 118 mmol/L (135-145)
[2021-05-02] MEDS: Dextrose 5 % 1,000 ML 250 ML IVCONT (11:00)
[2021-05-02 12:01] LABS: Glucose, Whole Blood 167 mg/dL (60-115)
--- NOTE | 2021-05-02 14:32 | MHC.CM.PN ---
pt lives c her s.o. in their home. she is independent in her care although her s.o. can help her if she needs it. this will include a ride home at dc. pt would benefit from a care team consult prior to DC. at this time dc plan is home no svcs. cm to cont. to follow.
[2021-05-02 16:43] LABS: Anion Gap 14 (12-20); Blood Urea Nitrogen 10 mg/dL (9-16); Calcium 8.3 mg/dL (8.4-10.2); Carbon Dioxide 26 mmol/L (22-29); Chloride 80 mmol/L (96-108); Creatinine Clr Calc Pharmacy 68.9; Estimated Glomerular Filt Rate > 60; Glucose Random 104 mg/dL (60-115); Potassium 3.7 mmol/L (3.3-5.1); Sodium 116 mmol/L (135-145)
[2021-05-02 20:52] LABS: Glucose, Whole Blood 118 mg/dL (60-115)
[2021-05-02] MEDS: PHENobarbitaL 15 MG TABLET 45 MG PO (21:04)
[2021-05-02 23:34] LABS: Anion Gap 13 (12-20); Blood Urea Nitrogen 12 mg/dL (9-16); Calcium 8.2 mg/dL (8.4-10.2); Carbon Dioxide 26 mmol/L (22-29); Chloride 81 mmol/L (96-108); Creatinine Clr Calc Pharmacy 67.3; Estimated Glomerular Filt Rate > 60; Glucose Random 133 mg/dL (60-115); Potassium 3.3 mmol/L (3.3-5.1); Sodium 117 mmol/L (135-145)
[2021-05-03] VITALS (28 sets, daily range): BP systolic 145–195; BP diastolic 71–97; PULSE 77–112; RESP 16–22; TEMP 36.5–37.5; O2SAT 94–100; BMI 33.1
[2021-05-03 02:38] LABS: Anion Gap 15 (12-20); Blood Urea Nitrogen 14 mg/dL (9-16); Calcium 8.2 mg/dL (8.4-10.2); Carbon Dioxide 25 mmol/L (22-29); Chloride 81 mmol/L (96-108); Creatinine Clr Calc Pharmacy 62.8; Estimated Glomerular Filt Rate > 60; Glucose Random 113 mg/dL (60-115); Potassium 3.3 mmol/L (3.3-5.1); Sodium 118 mmol/L (135-145)
[2021-05-03] MEDS: Potassium Chloride Packet 20 MEQ PACKET 40 MEQ PO (03:47)
[2021-05-03 05:43] LABS: MANUAL DIFF FLAG NO
[2021-05-03 05:45] LABS: Basophils Percent Auto 0.1 % (0-2); Hematocrit 31.5 % (37-47); Hemoglobin 11.7 g/dl (12.0-16.0); Imm Gran Abs Auto 0.07 X10*3/uL (0.00-0.03); Imm Gran Pct Auto 0.6 % (0.0-0.4); Lymphocytes Absolute Auto 0.8 X10*3/uL (1.2-4.9); Lymphocytes Percent Auto 6.4 % (20-40); Mean Corpuscular HGB Conc 37.1 g/dl (31.0-35.0); Mean Corpuscular Hemoglobin 32.1 pg (27.0-33.0); Mean Corpuscular Volume 86.5 fL (80-98); Mean Platelet Volume 9.2 fL (9.4-12.3); Monocytes Percent Auto 8.4 % (2-11); Neutrophils Absolute Auto 9.9 X10*3/uL (2.0-8.3); Neutrophils Percent Auto 84.5 % (45-73); Platelet Count 232 X10*3/uL (160-400); Red Blood Count 3.64 X10*6/uL (4.20-5.50); Red Cell Distribution Width 12.6 % (11.0-16.0); White Blood Count 11.7 X10*3/uL (4.8-10.8)
[2021-05-03] MEDS: Heparin Sodium,Porcine 5,000 UNIT/ML VIAL 5000 UNIT SUBCUT ×3 (05:45→21:12)
[2021-05-03 06:42] LABS: Albumin Level 3.2 g/dL (3.5-5.0); Anion Gap 14 (12-20); Blood Urea Nitrogen 15 mg/dL (9-16); Calcium 8.3 mg/dL (8.4-10.2); Carbon Dioxide 24 mmol/L (22-29); Chloride 84 mmol/L (96-108); Creatinine Clr Calc Pharmacy 58.1; Estimated Glomerular Filt Rate 57; Glucose Random 121 mg/dL (60-115); Magnesium 2.1 mg/dL (1.6-2.6); Phosphorus 2.4 mg/dL (2.7-4.5); Potassium 4.3 mmol/L (3.3-5.1); Sodium 118 mmol/L (135-145)
[2021-05-03 07:24] LABS: Glucose, Whole Blood 114 mg/dL (60-115)
[2021-05-03] MEDS: PHENobarbitaL 15 MG TABLET 45 MG PO ×2 (08:12→21:12)
[2021-05-03] MEDS: Thiamine HCL 200 MG/2 ML VIAL 100 MG IVPUSH ×2 (08:13→21:12)
[2021-05-03] MEDS: Sodium Chloride Tab 1 GM TABLET 2 GM PO ×3 (08:29→21:11)
[2021-05-03] MEDS: Calcium Carbonate 750 MG TAB.CHEW PO (08:31)
--- NOTE | 2021-05-03 10:25 | PM.CCPN ---
Subjective Subjective Date of Service: 05/03/21 Interval History: 65-year-old lady with underlying history of congestive heart failure, COPD, DANO, CAD, diabetes mellitus, hypertension, alcohol abuse, schizophrenia, bipolar disorder admitted on 05/01/2021 with weakness, fall, confusion. Her CT head showed no acute findings. On ER evaluation patient was noted to be significantly hyponatremic with sodium of 103. She also was profoundly confused. Patient was admitted to intensive care unit. She has received 100 cc of hypertonic saline for symptomatic hyponatremia with significant improvement in her confusion. No events overnight, sodium improving. Critical Care Time (minutes): 30 Physical Exam Vital Signs: Vital Signs: Last Vital Signs Temp 98.2 F 05/03/21 08:00 Pulse 90 05/03/21 09:54 Resp 17 05/03/21 09:54 BP 179/87 H 05/03/21 09:54 Pulse Ox 100 05/03/21 09:54 Body Mass Index 33.1 Const: General: no acute distress, alert and awake Eyes: Sclerae: sclerae normal EOM: EOMs intact bilaterally Neck: Neck: Yes no lymphadenopathy, Yes trachea midline and Yes supple Resp: Effort & Inspection: normal respiratory effort and no respiratory distress Auscultation: clear to auscultation bilaterally Cardio: Rate: regular rate Rhythm: regular rhythm Heart sounds: no gallops, no murmurs and no rubs GI: Palpation (GI): Soft to palpation and Other GI palpation findings present ( Nontender) Auscultation: normal bowel sounds Extrem: General: Yes no pedal edema, No clubbing and No cyanosis Objective Data Labs CBC & Chem 7: 05/03/21 05:34 05/03/21 06:06 Labs: Laboratory Results - last 24 hr 05/02/21 05/02/21 05/02/21 09:56 11:57 15:58 WBC RBC Hgb Hct MCV MCH MCHC RDW Plt Count MPV Immature Gran % (Auto) Neut % (Auto) Lymph % (Auto) [place] % (Auto) Eos % (Auto) Baso % (Auto) Lymph # (Auto) [place] # (Auto) Eos # (Auto) Baso # (Auto) Abs Immat Gran (auto) Absolute Neuts (auto) Absolute Nucleated RBC Nucleated RBC % (auto) Sodium 118 L* 116 L* Potassium 3.3 3.7 Chloride 80 L 80 L Carbon Dioxide 26 26 Anion Gap 15 14 BUN 10 10 Creatinine 0.85 0.82 Estim Creat Clear Calc 66.5 68.9 Estimated GFR > 60 > 60 POC Glucose 167 H Random Glucose 126 H 104 Calcium 8.8 8.3 L Phosphorus Magnesium Albumin 05/02/21 05/02/21 05/03/21 20:48 22:30 02:02 WBC RBC Hgb Hct MCV MCH MCHC RDW Plt Count MPV Immature Gran % (Auto) Neut % (Auto) Lymph % (Auto) [place] % (Auto) Eos % (Auto) Baso % (Auto) Lymph # (Auto) [place] # (Auto) Eos # (Auto) Baso # (Auto) Abs Immat Gran (auto) Absolute Neuts (auto) Absolute Nucleated RBC Nucleated RBC % (auto) Sodium 117 L* 118 L* Potassium 3.3 3.3 Chloride 81 L 81 L Carbon Dioxide 26 25 Anion Gap 13 15 BUN 12 14 Creatinine 0.84 0.90 Estim Creat Clear Calc 67.3 62.8 Estimated GFR > 60 > 60 POC Glucose 118 H Random Glucose 133 H 113 Calcium 8.2 L 8.2 L Phosphorus Magnesium Albumin 05/03/21 05/03/21 05/03/21 05:34 06:06 07:20 WBC 11.7 H RBC 3.64 L Hgb 11.7 L Hct 31.5 L MCV 86.5 MCH 32.1 MCHC 37.1 H RDW 12.6 Plt Count 232 MPV 9.2 L Immature Gran % (Auto) 0.6 H Neut % (Auto) 84.5 H Lymph % (Auto) 6.4 L [place] % (Auto) 8.4 Eos % (Auto) 0.0 Baso % (Auto) 0.1 Lymph # (Auto) 0.8 L [place] # (Auto) 1.0 Eos # (Auto) 0.0 Baso # (Auto) 0.0 Abs Immat Gran (auto) 0.07 H Absolute Neuts (auto) 9.9 H Absolute Nucleated RBC 0.000 Nucleated RBC % (auto) 0.0 Sodium 118 L* Potassium 4.3 D Chloride 84 L Carbon Dioxide 24 Anion Gap 14 BUN 15 Creatinine 0.97 Estim Creat Clear Calc 58.1 Estimated GFR 57 POC Glucose 114 Random Glucose 121 H Calcium 8.3 L Phosphorus 2.4 L Magnesium 2.1 Albumin 3.2 L Quality Stroke Does the patient have a stroke diagnosis?: No VTE Prior VTE?: No VTE Risk Level:: Medical - moderate - high VTE Device Contraindication: N/A - Device Ordered VTE Drug Contraindication: N/A - Med Ordered Progress Note: A&P Assessment and plan (1) Delirium tremens: Status: Acute Assessment and Plan: Assessment: 65-year-old lady admitted with acute symptomatic hyponatremia further complicated by development of delirium tremens Plan: Neuro: Metabolic encephalopathy secondary to acute hypernatremia, resolved with hypertonic saline administration. Now with delirium tremens, continue with phenobarbital protocol, improving Cardiac: No acute issues. Pulmonary: No acute issues. Renal: Acute symptomatic hypernatremia, likely secondary to poor solute intake. Status post 100 cc of 3% saline with resolution of confusion. Nephrology service care appreciated. Continue with monitoring of electrolytes and target sodium increase of 8-10 mEq per day. Improving. Endo: No acute issues. GI: No acute issues. ID: No acute issues Heme/Onc: No acute issues. Psych: No acute issues. Miscellaneous: No acute issues. Prophylaxis: Heparin Diet: Regular Critical care time spent: 45 (2) Acute hyponatremia: Status: Acute (3) Bipolar I disorder: Status: Acute
[2021-05-03 11:43] LABS: Glucose, Whole Blood 144 mg/dL (60-115)
[2021-05-03] MEDS: amLODIPine Besylate 10 MG TABLET PO (12:03)
[2021-05-03] MEDS: hydrALAZINE HCl 20 MG/ML VIAL 10 MG IVPUSH (13:23)
[2021-05-03 13:46] LABS: Anion Gap 15 (12-20); Blood Urea Nitrogen 16 mg/dL (9-16); Calcium 8.5 mg/dL (8.4-10.2); Carbon Dioxide 26 mmol/L (22-29); Chloride 84 mmol/L (96-108); Creatinine Clr Calc Pharmacy 55.8; Estimated Glomerular Filt Rate 55; Glucose Random 147 mg/dL (60-115); Potassium 4.2 mmol/L (3.3-5.1); Sodium 121 mmol/L (135-145)
[2021-05-03] MEDS: hydrALAZINE HCl 25 MG TABLET PO ×2 (14:13→21:12)
[2021-05-03 16:36] LABS: Glucose, Whole Blood 169 mg/dL (60-115)
--- NOTE | 2021-05-03 16:37 | P.PNNP_ITS ---
Subjective Subjective Date of Service: 05/03/21 Interval history: seen and examined. Events noted Physical Exam Vital Signs: Vital Signs: Last Vital Signs Temp 99.1 F 05/03/21 16:00 Pulse 104 H 05/03/21 16:00 Resp 19 05/03/21 16:00 BP 145/86 H 05/03/21 16:00 Pulse Ox 97 05/03/21 16:00 Body Mass Index 33.1 Const: Other: Patient is awake and alert in not acute distress General: no acute distress, well developed, alert, awake and Physically active Orientation/consciousness: oriented to place HENMT: Head: Yes normal to inspection, Yes No palpable skull fracture present and Yes atraumatic General nose exam: Normal external nose present Face and sinus: Yes normal facial exam Mouth: Normal oral and palatal mucosa present and lip normal Throat: Yes posterior oropharynx normal Neck: Other: supple Neck: Yes normal visual inspection, Yes full ROM and Yes no lymphadenopathy Chest: Chest palpation & inspection: normal inspection of the chest and normal palpation of entire chest wall Resp: Effort & Inspection: normal respiratory effort Auscultation: clear to auscultation bilaterally Cardio: Jugular venous distension: no JVD Rhythm: abnormal rhythm GI: Inspection: Yes normal to inspection Palpation (GI): Soft to palpation, not firm, nontender and no guarding Skin: General skin exam: no rashes or lesions noted and elasticity normal Trauma: no lacerations or abrasions Wounds: no wounds Neuro: Other: Patient is awake and alert she is able to tell me that she is in the hospital she follow comand ,cranil nerve intact ,nove all extremities General: oriented to place Cranial nerves: Yes CN's II-XII intact bilaterally Objective Data Labs CBC & Chem 7: 05/03/21 05:34 05/03/21 12:18 Labs: Laboratory Results - last 24 hr 05/02/21 05/02/21 05/02/21 15:58 20:48 22:30 WBC RBC Hgb Hct MCV MCH MCHC RDW Plt Count MPV Immature Gran % (Auto) Neut % (Auto) Lymph % (Auto) [place] % (Auto) Eos % (Auto) Baso % (Auto) Lymph # (Auto) [place] # (Auto) Eos # (Auto) Baso # (Auto) Abs Immat Gran (auto) Absolute Neuts (auto) Absolute Nucleated RBC Nucleated RBC % (auto) Sodium 116 L* 117 L* Potassium 3.7 3.3 Chloride 80 L 81 L Carbon Dioxide 26 26 Anion Gap 14 13 BUN 10 12 Creatinine 0.82 0.84 Estim Creat Clear Calc 68.9 67.3 Estimated GFR > 60 > 60 POC Glucose 118 H Random Glucose 104 133 H Calcium 8.3 L 8.2 L Phosphorus Magnesium Albumin 05/03/21 05/03/21 05/03/21 02:02 05:34 06:06 WBC 11.7 H RBC 3.64 L Hgb 11.7 L Hct 31.5 L MCV 86.5 MCH 32.1 MCHC 37.1 H RDW 12.6 Plt Count 232 MPV 9.2 L Immature Gran % (Auto) 0.6 H Neut % (Auto) 84.5 H Lymph % (Auto) 6.4 L [place] % (Auto) 8.4 Eos % (Auto) 0.0 Baso % (Auto) 0.1 Lymph # (Auto) 0.8 L [place] # (Auto) 1.0 Eos # (Auto) 0.0 Baso # (Auto) 0.0 Abs Immat Gran (auto) 0.07 H Absolute Neuts (auto) 9.9 H Absolute Nucleated RBC 0.000 Nucleated RBC % (auto) 0.0 Sodium 118 L* 118 L* Potassium 3.3 4.3 D Chloride 81 L 84 L Carbon Dioxide 25 24 Anion Gap 15 14 BUN 14 15 Creatinine 0.90 0.97 Estim Creat Clear Calc 62.8 58.1 Estimated GFR > 60 57 POC Glucose Random Glucose 113 121 H Calcium 8.2 L 8.3 L Phosphorus 2.4 L Magnesium 2.1 Albumin 3.2 L 05/03/21 05/03/21 05/03/21 07:20 11:39 12:18 WBC RBC Hgb Hct MCV MCH MCHC RDW Plt Count MPV Immature Gran % (Auto) Neut % (Auto) Lymph % (Auto) [place] % (Auto) Eos % (Auto) Baso % (Auto) Lymph # (Auto) [place] # (Auto) Eos # (Auto) Baso # (Auto) Abs Immat Gran (auto) Absolute Neuts (auto) Absolute Nucleated RBC Nucleated RBC % (auto) Sodium 121 L Potassium 4.2 Chloride 84 L Carbon Dioxide 26 Anion Gap 15 BUN 16 Creatinine 1.01 Estim Creat Clear Calc 55.8 Estimated GFR 55 POC Glucose 114 144 H Random Glucose 147 H Calcium 8.5 Phosphorus Magnesium Albumin 05/03/21 16:33 WBC RBC Hgb Hct MCV MCH MCHC RDW Plt Count MPV Immature Gran % (Auto) Neut % (Auto) Lymph % (Auto) [place] % (Auto) Eos % (Auto) Baso % (Auto) Lymph # (Auto) [place] # (Auto) Eos # (Auto) Baso # (Auto) Abs Immat Gran (auto) Absolute Neuts (auto) Absolute Nucleated RBC Nucleated RBC % (auto) Sodium Potassium Chloride Carbon Dioxide Anion Gap BUN Creatinine Estim Creat Clear Calc Estimated GFR POC Glucose 169 H Random Glucose Calcium Phosphorus Magnesium Albumin Procedures Date of Service Date of Service: 05/03/21 Assessment & Plan Assessment and plan (1) Acute hyponatremia: Status: Acute Assessment and Plan: ?1. Severe Hyponatremia with AMS and clincially appears to be euvolemic Etiol of HypoNa: c/w mixed picture including poor solute intake ( [place]) and excess PO fluid intake and possibly inapp ADH realeas as well; given her history assume this is predominantly chronic HypoNa and so need to correct cautiously as she is in the High-Risk category for development of CPM if too rapid correction. Current expert opinion is to incr the SNa by no more than 4-6 meq per 24 hrs So based on these targets we have again overshot our goal which would be to keep SNa at 113 to 116 as of 18:00 tonight based on the adm SNa 103 ( 18: 00 0n 05/01/21) To achieve this I would give her DDAVP 2 mcg SQ and IV L4W--[id number] we give 3ml/kgx 2 hrs ( if wt 85 kg) then 240 IV D5W x 2 hrs and then recheck SNa--this usu will bring down Sna by 2-4 meq and then monitor as with DSDAVP onboard she will hoppefully not cont to auto-correct REC: as noted above this is a very difful;t case and will reqiuire frequent SNA at least every 2-3 hrours and frequent adjustments of IVF and use of DDAVP as needed I have d/w ICU Dr Harrison in detail and I will follow clsoely with him and the ICU team (2) Encephalopathy: Status: Acute (3) SAGAR (acute kidney injury): Status: Acute (4) Alcohol use disorder: Status: Acute Time Spent With Patient Time: Total time spent is greater than 50% in coordination of care (as documented) at patient's floor/unit and/or counseling patient: Progress Note: Quality Stroke Does the patient have a stroke diagnosis?: No
[2021-05-03 18:44] LABS: Anion Gap 16 (12-20); Blood Urea Nitrogen 15 mg/dL (9-16); Calcium 8.5 mg/dL (8.4-10.2); Carbon Dioxide 23 mmol/L (22-29); Chloride 88 mmol/L (96-108); Creatinine Clr Calc Pharmacy 59.9; Estimated Glomerular Filt Rate 59; Glucose Random 127 mg/dL (60-115); Sodium 123 mmol/L (135-145)
[2021-05-03 21:03] LABS: Glucose, Whole Blood 132 mg/dL (60-115)
[2021-05-03 23:04] LABS: Anion Gap 16 (12-20); Blood Urea Nitrogen 14 mg/dL (9-16); Calcium 8.5 mg/dL (8.4-10.2); Carbon Dioxide 23 mmol/L (22-29); Chloride 89 mmol/L (96-108); Creatinine Clr Calc Pharmacy 61.9; Estimated Glomerular Filt Rate > 60; Glucose Random 156 mg/dL (60-115); Potassium 3.9 mmol/L (3.3-5.1); Sodium 124 mmol/L (135-145)
[2021-05-04] VITALS (14 sets, daily range): BP systolic 127–178; BP diastolic 58–122; PULSE 89–104; RESP 15–18; TEMP 36.2–36.9; O2SAT 97–100; BMI 32.5
[2021-05-04 05:16] LABS: VBG Base Excess -0.2 mmol/L; VBG HCO3 24 mmol/L (22-26); VBG pCO2 38 mmHg; VBG pO2 56 mmHg
[2021-05-04] MEDS: Heparin Sodium,Porcine 5,000 UNIT/ML VIAL 5000 UNIT SUBCUT ×3 (05:21→20:24)
[2021-05-04 05:30] LABS: MANUAL DIFF FLAG NO
[2021-05-04 05:33] LABS: Venous Blood Gas Refer to POC result
[2021-05-04 05:34] LABS: Basophils Percent Auto 0.1 % (0-2); Hematocrit 30.1 % (37-47); Hemoglobin 10.8 g/dl (12.0-16.0); Imm Gran Abs Auto 0.05 X10*3/uL (0.00-0.03); Imm Gran Pct Auto 0.5 % (0.0-0.4); Lymphocytes Absolute Auto 0.8 X10*3/uL (1.2-4.9); Lymphocytes Percent Auto 8.3 % (20-40); Mean Corpuscular HGB Conc 35.9 g/dl (31.0-35.0); Mean Corpuscular Hemoglobin 31.8 pg (27.0-33.0); Mean Corpuscular Volume 88.5 fL (80-98); Mean Platelet Volume 9.3 fL (9.4-12.3); Monocytes Absolute Auto 0.9 X10*3/uL (0.1-1.2); Monocytes Percent Auto 10.1 % (2-11); Neutrophils Absolute Auto 7.5 X10*3/uL (2.0-8.3); Platelet Count 259 X10*3/uL (160-400); Red Cell Distribution Width 12.6 % (11.0-16.0); White Blood Count 9.2 X10*3/uL (4.8-10.8)
[2021-05-04 05:55] LABS: Anion Gap 16 (12-20); Blood Urea Nitrogen 14 mg/dL (9-16); Calcium 8.6 mg/dL (8.4-10.2); Carbon Dioxide 24 mmol/L (22-29); Chloride 89 mmol/L (96-108); Estimated Glomerular Filt Rate > 60; Glucose Random 143 mg/dL (60-115); Magnesium 2.1 mg/dL (1.6-2.6); Phosphorus 2.4 mg/dL (2.7-4.5); Potassium 3.7 mmol/L (3.3-5.1); Sodium 125 mmol/L (135-145)
[2021-05-04 07:15] LABS: Glucose, Whole Blood 148 mg/dL (60-115)
[2021-05-04] MEDS: amLODIPine Besylate 10 MG TABLET PO (08:07)
[2021-05-04] MEDS: hydrALAZINE HCl 25 MG TABLET PO ×3 (08:07→20:24)
[2021-05-04] MEDS: PHENobarbitaL 15 MG TABLET 45 MG PO (08:07)
[2021-05-04] MEDS: Thiamine HCL 200 MG/2 ML VIAL 100 MG IVPUSH ×2 (08:07→20:24)
[2021-05-04] MEDS: Sodium Chloride Tab 1 GM TABLET 2 GM PO (08:07)
[2021-05-04] MEDS: Potassium Phosphate 30 MMOL in 0.9 % Sodium Chloride 500 ML 85 MMOL IV (09:28)
--- NOTE | 2021-05-04 10:48 | P.PNCC_ITS ---
Subjective Subjective Date of Service: 05/04/21 Interval History: 65-year-old lady with underlying history of congestive heart failure, COPD, DANO, CAD, diabetes mellitus, hypertension, alcohol abuse, schizophrenia, bipolar disorder admitted on 05/01/2021 with weakness, fall, confusion. Her CT head showed no acute findings. On ER evaluation patient was noted to be significantly hyponatremic with sodium of 103. She also was profoundly confused. Patient was admitted to intensive care unit. She has received 100 cc of hypertonic saline for symptomatic hyponatremia with significant improvement in her confusion. Hospital course further complicated by delirium tremens. No events overnight, sodium improving. Critical Care Time (minutes): 0 Physical Exam Vital Signs: Vital Signs: Last Vital Signs Temp 97.5 F 05/04/21 07:55 Pulse 104 H 05/04/21 08:07 Resp 16 05/04/21 07:55 BP 154/122 H 05/04/21 08:07 Pulse Ox 99 05/04/21 07:55 Body Mass Index 32.5 Const: General: no acute distress, alert and awake Eyes: Sclerae: sclerae normal EOM: EOMs intact bilaterally Neck: Neck: Yes no lymphadenopathy, Yes trachea midline and Yes supple Resp: Effort & Inspection: normal respiratory effort and no respiratory distress Auscultation: clear to auscultation bilaterally Cardio: Rate: regular rate Rhythm: regular rhythm Heart sounds: no gallops, no murmurs and no rubs GI: Palpation (GI): Soft to palpation and Other GI palpation findings present ( Nontender) Auscultation: normal bowel sounds Extrem: General: Yes no pedal edema, No clubbing and No cyanosis Objective Data Labs CBC & Chem 7: 05/04/21 05:08 05/04/21 05:08 Labs: Laboratory Results - last 24 hr 05/03/21 05/03/21 05/03/21 11:39 12:18 16:33 WBC RBC Hgb Hct MCV MCH MCHC RDW Plt Count MPV Immature Gran % (Auto) Neut % (Auto) Lymph % (Auto) [place] % (Auto) Eos % (Auto) Baso % (Auto) Lymph # (Auto) [place] # (Auto) Eos # (Auto) Baso # (Auto) Abs Immat Gran (auto) Absolute Neuts (auto) Absolute Nucleated RBC Nucleated RBC % (auto) VBG pH VBG pCO2 VBG pO2 VBG HCO3 VBG O2 Saturation VBG Base Excess Sodium 121 L Potassium 4.2 Chloride 84 L Carbon Dioxide 26 Anion Gap 15 BUN 16 Creatinine 1.01 Estim Creat Clear Calc 55.8 Estimated GFR 55 POC Glucose 144 H 169 H Random Glucose 147 H Calcium 8.5 Phosphorus Magnesium 05/03/21 05/03/21 05/03/21 18:00 20:59 22:05 WBC RBC Hgb Hct MCV MCH MCHC RDW Plt Count MPV Immature Gran % (Auto) Neut % (Auto) Lymph % (Auto) [place] % (Auto) Eos % (Auto) Baso % (Auto) Lymph # (Auto) [place] # (Auto) Eos # (Auto) Baso # (Auto) Abs Immat Gran (auto) Absolute Neuts (auto) Absolute Nucleated RBC Nucleated RBC % (auto) VBG pH VBG pCO2 VBG pO2 VBG HCO3 VBG O2 Saturation VBG Base Excess Sodium 123 L 124 L Potassium 4.0 3.9 Chloride 88 L 89 L Carbon Dioxide 23 23 Anion Gap 16 16 BUN 15 14 Creatinine 0.94 0.91 Estim Creat Clear Calc 59.9 61.9 Estimated GFR 59 > 60 POC Glucose 132 H Random Glucose 127 H 156 H Calcium 8.5 8.5 Phosphorus Magnesium 05/04/21 05/04/21 05/04/21 05:08 05:08 05:08 WBC 9.2 RBC 3.40 L Hgb 10.8 L Hct 30.1 L MCV 88.5 MCH 31.8 MCHC 35.9 H RDW 12.6 Plt Count 259 MPV 9.3 L Immature Gran % (Auto) 0.5 H Neut % (Auto) 81.0 H Lymph % (Auto) 8.3 L [place] % (Auto) 10.1 Eos % (Auto) 0.0 Baso % (Auto) 0.1 Lymph # (Auto) 0.8 L [place] # (Auto) 0.9 Eos # (Auto) 0.0 Baso # (Auto) 0.0 Abs Immat Gran (auto) 0.05 H Absolute Neuts (auto) 7.5 Absolute Nucleated RBC 0.000 Nucleated RBC % (auto) 0.0 VBG pH 7.40 VBG pCO2 38 VBG pO2 56 VBG HCO3 24 VBG O2 Saturation 86.0 VBG Base Excess -0.2 Sodium 125 L Potassium 3.7 Chloride 89 L Carbon Dioxide 24 Anion Gap 16 BUN 14 Creatinine 0.93 Estim Creat Clear Calc 60.0 Estimated GFR > 60 POC Glucose Random Glucose 143 H Calcium 8.6 Phosphorus 2.4 L Magnesium 2.1 05/04/21 07:13 WBC RBC Hgb Hct MCV MCH MCHC RDW Plt Count MPV Immature Gran % (Auto) Neut % (Auto) Lymph % (Auto) [place] % (Auto) Eos % (Auto) Baso % (Auto) Lymph # (Auto) [place] # (Auto) Eos # (Auto) Baso # (Auto) Abs Immat Gran (auto) Absolute Neuts (auto) Absolute Nucleated RBC Nucleated RBC % (auto) VBG pH VBG pCO2 VBG pO2 VBG HCO3 VBG O2 Saturation VBG Base Excess Sodium Potassium Chloride Carbon Dioxide Anion Gap BUN Creatinine Estim Creat Clear Calc Estimated GFR POC Glucose 148 H Random Glucose Calcium Phosphorus Magnesium Quality Stroke Does the patient have a stroke diagnosis?: No VTE Prior VTE?: No VTE Risk Level:: Medical - moderate - high VTE Device Contraindication: N/A - Device Ordered VTE Drug Contraindication: N/A - Med Ordered Progress Note: A&P Assessment and plan (1) Delirium tremens: Status: Acute Assessment and Plan: Assessment: 65-year-old lady admitted with acute symptomatic hyponatremia further complicated by development of delirium tremens Plan: Neuro: Metabolic encephalopathy secondary to acute hypernatremia, resolved with hypertonic saline administration. Now with delirium tremens, continue with phenobarbital protocol, improving significantly. Cardiac: No acute issues. Pulmonary: No acute issues. Renal: Acute symptomatic hypernatremia, likely secondary to poor solute intake. Status post 100 cc of 3% saline with resolution of confusion. Nephrology service care appreciated. Continue with monitoring of electrolytes and target sodium increase of 8-10 mEq per day. Improving. Endo: No acute issues. GI: No acute issues. ID: No acute issues Heme/Onc: No acute issues. Psych: No acute issues. Miscellaneous: No acute issues. Prophylaxis: Heparin Diet: Regular Critical care time spent: 45 (2) Acute hyponatremia: Status: Acute
[2021-05-04 11:30] LABS: Glucose, Whole Blood 171 mg/dL (60-115)
[2021-05-04 12:11] LABS: Anion Gap 17 (12-20); Blood Urea Nitrogen 13 mg/dL (9-16); Calcium 8.7 mg/dL (8.4-10.2); Carbon Dioxide 21 mmol/L (22-29); Chloride 92 mmol/L (96-108); Creatinine Clr Calc Pharmacy 62.1; Estimated Glomerular Filt Rate > 60; Glucose Random 147 mg/dL (60-115); Potassium 4.4 mmol/L (3.3-5.1); Sodium 126 mmol/L (135-145)
[2021-05-04 16:30] LABS: Glucose, Whole Blood 129 mg/dL (60-115)
--- NOTE | 2021-05-04 18:15 | PC.NURSE ---
Patient c/o of asthma and requesting at home inhalers. Assessed patient - 99% on RA, RR 16-20, new expiratory wheezing bilateral upper lobes, dry intermittent cough present. MD notified and TO for PRN albuteral updrafts q4hr prn placed. Respiratory notified and awaiting arrival for treatment.
[2021-05-04] MEDS: Albuterol Sulfate (0.083%) 2.5 MG/3 ML VIAL.NEB INHALE (18:28)
--- NOTE | 2021-05-04 18:29 | PM.PNNEP ---
Subjective Subjective Date of Service: 05/04/21 Principal diagnosis: HypoNa Interval history: Seen and examined. Events noted Physical Exam Vital Signs: Vital Signs: Last Vital Signs Temp 97.7 F 05/04/21 15:31 Pulse 97 05/04/21 15:31 Resp 16 05/04/21 15:31 BP 146/66 H 05/04/21 15:31 Pulse Ox 97 05/04/21 15:31 Body Mass Index 32.5 Const: Other: Patient is awake and alert in not acute distress General: no acute distress, well developed, alert, awake and Physically active Orientation/consciousness: oriented to place HENMT: Head: Yes normal to inspection, Yes No palpable skull fracture present and Yes atraumatic General nose exam: Normal external nose present Face and sinus: Yes normal facial exam Mouth: Normal oral and palatal mucosa present and lip normal Throat: Yes posterior oropharynx normal Neck: Other: supple Neck: Yes normal visual inspection, Yes full ROM and Yes no lymphadenopathy Chest: Chest palpation & inspection: normal inspection of the chest and normal palpation of entire chest wall Resp: Effort & Inspection: normal respiratory effort Auscultation: clear to auscultation bilaterally Cardio: Jugular venous distension: no JVD Rhythm: abnormal rhythm GI: Inspection: Yes normal to inspection Palpation (GI): Soft to palpation, not firm, nontender and no guarding Skin: General skin exam: no rashes or lesions noted and elasticity normal Trauma: no lacerations or abrasions Wounds: no wounds Neuro: Other: Patient is awake and alert she is able to tell me that she is in the hospital she follow comand ,cranil nerve intact ,nove all extremities General: oriented to place Cranial nerves: Yes CN's II-XII intact bilaterally Objective Data Labs CBC & Chem 7: 05/04/21 05:08 05/04/21 11:40 Labs: Laboratory Results - last 24 hr 05/03/21 05/03/21 05/03/21 18:00 20:59 22:05 WBC RBC Hgb Hct MCV MCH MCHC RDW Plt Count MPV Immature Gran % (Auto) Neut % (Auto) Lymph % (Auto) [place] % (Auto) Eos % (Auto) Baso % (Auto) Lymph # (Auto) [place] # (Auto) Eos # (Auto) Baso # (Auto) Abs Immat Gran (auto) Absolute Neuts (auto) Absolute Nucleated RBC Nucleated RBC % (auto) VBG pH VBG pCO2 VBG pO2 VBG HCO3 VBG O2 Saturation VBG Base Excess Sodium 123 L 124 L Potassium 4.0 3.9 Chloride 88 L 89 L Carbon Dioxide 23 23 Anion Gap 16 16 BUN 15 14 Creatinine 0.94 0.91 Estim Creat Clear Calc 59.9 61.9 Estimated GFR 59 > 60 POC Glucose 132 H Random Glucose 127 H 156 H Calcium 8.5 8.5 Phosphorus Magnesium 05/04/21 05/04/21 05/04/21 05:08 05:08 05:08 WBC 9.2 RBC 3.40 L Hgb 10.8 L Hct 30.1 L MCV 88.5 MCH 31.8 MCHC 35.9 H RDW 12.6 Plt Count 259 MPV 9.3 L Immature Gran % (Auto) 0.5 H Neut % (Auto) 81.0 H Lymph % (Auto) 8.3 L [place] % (Auto) 10.1 Eos % (Auto) 0.0 Baso % (Auto) 0.1 Lymph # (Auto) 0.8 L [place] # (Auto) 0.9 Eos # (Auto) 0.0 Baso # (Auto) 0.0 Abs Immat Gran (auto) 0.05 H Absolute Neuts (auto) 7.5 Absolute Nucleated RBC 0.000 Nucleated RBC % (auto) 0.0 VBG pH 7.40 VBG pCO2 38 VBG pO2 56 VBG HCO3 24 VBG O2 Saturation 86.0 VBG Base Excess -0.2 Sodium 125 L Potassium 3.7 Chloride 89 L Carbon Dioxide 24 Anion Gap 16 BUN 14 Creatinine 0.93 Estim Creat Clear Calc 60.0 Estimated GFR > 60 POC Glucose Random Glucose 143 H Calcium 8.6 Phosphorus 2.4 L Magnesium 2.1 05/04/21 05/04/21 05/04/21 07:13 11:25 11:40 WBC RBC Hgb Hct MCV MCH MCHC RDW Plt Count MPV Immature Gran % (Auto) Neut % (Auto) Lymph % (Auto) [place] % (Auto) Eos % (Auto) Baso % (Auto) Lymph # (Auto) [place] # (Auto) Eos # (Auto) Baso # (Auto) Abs Immat Gran (auto) Absolute Neuts (auto) Absolute Nucleated RBC Nucleated RBC % (auto) VBG pH VBG pCO2 VBG pO2 VBG HCO3 VBG O2 Saturation VBG Base Excess Sodium 126 L Potassium 4.4 Chloride 92 L Carbon Dioxide 21 L Anion Gap 17 BUN 13 Creatinine 0.90 Estim Creat Clear Calc 62.1 Estimated GFR > 60 POC Glucose 148 H 171 H Random Glucose 147 H Calcium 8.7 Phosphorus Magnesium 05/04/21 16:26 WBC RBC Hgb Hct MCV MCH MCHC RDW Plt Count MPV Immature Gran % (Auto) Neut % (Auto) Lymph % (Auto) [place] % (Auto) Eos % (Auto) Baso % (Auto) Lymph # (Auto) [place] # (Auto) Eos # (Auto) Baso # (Auto) Abs Immat Gran (auto) Absolute Neuts (auto) Absolute Nucleated RBC Nucleated RBC % (auto) VBG pH VBG pCO2 VBG pO2 VBG HCO3 VBG O2 Saturation VBG Base Excess Sodium Potassium Chloride Carbon Dioxide Anion Gap BUN Creatinine Estim Creat Clear Calc Estimated GFR POC Glucose 129 H Random Glucose Calcium Phosphorus Magnesium Procedures Date of Service Date of Service: 05/04/21 Assessment & Plan Assessment and plan (1) Acute hyponatremia: Status: Acute Assessment and Plan: ?1. Severe Hyponatremia with AMS and clincially appears to be euvolemic Etiol of HypoNa: c/w mixed picture including poor solute intake ( [place]) and excess PO fluid intake and possibly inapp ADH realeas as well; given her history assume this is predominantly chronic HypoNa and so need to correct cautiously as she is in the High-Risk category for development of CPM if too rapid correction. Current expert opinion is to incr the SNa by no more than 4-6 meq per 24 hrs So based on these targets we have again overshot our goal which would be to keep SNa at 115 to 121 ideally as of 18:00 tonight based on the adm SNa 103 ( 18: 00 0n 05/01/21)...last Sna 126 is slt above the target but within the general gusidelines of no more than 8 meq/24 hrs 127 REC: repeat stat lytes now at 7 pm and then decide if needs any adjsutment; would cont po fluid restriction for now and we can adjust with either directed extra PO fluid intake or even possibly additional IV hypotonic fluids vs need for PO NaCL tabs Will follow mateo with team (2) Encephalopathy: Status: Acute (3) SAGAR (acute kidney injury): Status: Acute (4) Alcohol use disorder: Status: Acute Time Spent With Patient Time: Total time spent is greater than 50% in coordination of care (as documented) at patient's floor/unit and/or counseling patient: Progress Note: Quality Stroke Does the patient have a stroke diagnosis?: No
[2021-05-04 19:22] LABS: Anion Gap 17 (12-20); Carbon Dioxide 21 mmol/L (22-29); Chloride 93 mmol/L (96-108); Potassium 4.1 mmol/L (3.3-5.1); Sodium 127 mmol/L (135-145)
[2021-05-04 19:25] LABS: Anion Gap 14 (12-20); Blood Urea Nitrogen 12 mg/dL (9-16); Calcium 8.2 mg/dL (8.4-10.2); Carbon Dioxide 25 mmol/L (22-29); Chloride 92 mmol/L (96-108); Creatinine Clr Calc Pharmacy 67.3; Estimated Glomerular Filt Rate > 60; Glucose Random 126 mg/dL (60-115); Sodium 127 mmol/L (135-145)
[2021-05-04] MEDS: PHENobarbitaL 15 MG TABLET PO (20:24)
[2021-05-04 20:29] LABS: Glucose, Whole Blood 136 mg/dL (60-115)
[2021-05-05] VITALS (14 sets, daily range): BP systolic 108–175; BP diastolic 64–93; PULSE 90–104; RESP 14–22; TEMP 36.2–36.8; O2SAT 95–100; BMI 32.3
[2021-05-05] MEDS: Heparin Sodium,Porcine 5,000 UNIT/ML VIAL 5000 UNIT SUBCUT ×3 (06:28→22:52)
[2021-05-05 06:40] LABS: Anion Gap 21 (12-20); Blood Urea Nitrogen 11 mg/dL (9-16); Calcium 8.4 mg/dL (8.4-10.2); Carbon Dioxide 19 mmol/L (22-29); Chloride 90 mmol/L (96-108); Creatinine Clr Calc Pharmacy 68.7; Estimated Glomerular Filt Rate > 60; Glucose Random 121 mg/dL (60-115); Potassium 3.8 mmol/L (3.3-5.1); Sodium 126 mmol/L (135-145)
[2021-05-05 07:00] LABS: Basophils Percent Auto 0.1 % (0-2); Eosinophils Percent Auto 0.1 % (0-4); Hematocrit 33.8 % (37-47); Hemoglobin 12.4 g/dl (12.0-16.0); Imm Gran Abs Auto 0.17 X10*3/uL (0.00-0.03); Imm Gran Pct Auto 2.2 % (0.0-0.4); Lymphocytes Percent Auto 13.6 % (20-40); Mean Corpuscular HGB Conc 36.7 g/dl (31.0-35.0); Mean Corpuscular Hemoglobin 32.1 pg (27.0-33.0); Mean Corpuscular Volume 87.6 fL (80-98); Mean Platelet Volume 9.1 fL (9.4-12.3); Monocytes Percent Auto 13.2 % (2-11); Neutrophils Absolute Auto 5.4 X10*3/uL (2.0-8.3); Neutrophils Percent Auto 70.8 % (45-73); Platelet Count 242 X10*3/uL (160-400); Red Blood Count 3.86 X10*6/uL (4.20-5.50); Red Cell Distribution Width 12.5 % (11.0-16.0); White Blood Count 7.6 X10*3/uL (4.8-10.8)
[2021-05-05 07:49] LABS: Glucose, Whole Blood 115 mg/dL (60-115)
[2021-05-05] MEDS: Thiamine HCL 200 MG/2 ML VIAL 100 MG IVPUSH ×2 (08:44→20:06)
[2021-05-05] MEDS: amLODIPine Besylate 10 MG TABLET PO (08:44)
[2021-05-05] MEDS: hydrALAZINE HCl 25 MG TABLET PO ×3 (08:44→19:51)
[2021-05-05] MEDS: PHENobarbitaL 15 MG TABLET PO ×2 (08:44→19:53)
--- NOTE | 2021-05-05 09:13 | PM.PNNEP ---
Subjective Subjective Date of Service: 05/05/21 Principal diagnosis: HypoNa Interval history: Seen and examined. Events noted Physical Exam Vital Signs: Vital Signs: Last Vital Signs Temp 97.3 F 05/05/21 08:00 Pulse 95 05/05/21 08:44 Resp 18 05/05/21 08:00 BP 164/93 H 05/05/21 08:44 Pulse Ox 95 05/05/21 08:00 Body Mass Index 32.3 Const: Other: Patient is awake and alert in not acute distress General: no acute distress, well developed, alert, awake and Physically active Orientation/consciousness: oriented to place HENMT: Head: Yes normal to inspection, Yes No palpable skull fracture present and Yes atraumatic General nose exam: Normal external nose present Face and sinus: Yes normal facial exam Mouth: Normal oral and palatal mucosa present and lip normal Throat: Yes posterior oropharynx normal Eyes: Sclerae: sclerae normal EOM: EOMs intact bilaterally Neck: Other: supple Neck: Yes normal visual inspection, Yes full ROM, Yes no lymphadenopathy, Yes trachea midline and Yes supple Chest: Chest palpation & inspection: normal inspection of the chest and normal palpation of entire chest wall Resp: Effort & Inspection: normal respiratory effort and no respiratory distress Auscultation: clear to auscultation bilaterally Cardio: Jugular venous distension: no JVD Rate: regular rate Rhythm: regular rhythm and abnormal rhythm Heart sounds: no gallops, no murmurs and no rubs GI: Inspection: Yes normal to inspection Palpation (GI): Soft to palpation, not firm, nontender, no guarding and Other GI palpation findings present ( Nontender) Auscultation: normal bowel sounds Skin: General skin exam: no rashes or lesions noted and elasticity normal Trauma: no lacerations or abrasions Wounds: no wounds Neuro: Other: Patient is awake and alert she is able to tell me that she is in the hospital she follow comand ,cranil nerve intact ,nove all extremities General: oriented to place Cranial nerves: Yes CN's II-XII intact bilaterally Extrem: General: Yes no pedal edema, No clubbing and No cyanosis Objective Data Labs CBC & Chem 7: 05/05/21 06:46 05/05/21 05:25 Labs: Laboratory Results - last 24 hr 05/04/21 05/04/21 05/04/21 11:25 11:40 16:26 WBC RBC Hgb Hct MCV MCH MCHC RDW Plt Count MPV Immature Gran % (Auto) Neut % (Auto) Lymph % (Auto) [place] % (Auto) Eos % (Auto) Baso % (Auto) Lymph # (Auto) [place] # (Auto) Eos # (Auto) Baso # (Auto) Abs Immat Gran (auto) Absolute Neuts (auto) Absolute Nucleated RBC Nucleated RBC % (auto) Sodium 126 L Potassium 4.4 Chloride 92 L Carbon Dioxide 21 L Anion Gap 17 BUN 13 Creatinine 0.90 Estim Creat Clear Calc 62.1 Estimated GFR > 60 POC Glucose 171 H 129 H Random Glucose 147 H Calcium 8.7 05/04/21 05/04/21 05/04/21 18:44 18:44 20:25 WBC RBC Hgb Hct MCV MCH MCHC RDW Plt Count MPV Immature Gran % (Auto) Neut % (Auto) Lymph % (Auto) [place] % (Auto) Eos % (Auto) Baso % (Auto) Lymph # (Auto) [place] # (Auto) Eos # (Auto) Baso # (Auto) Abs Immat Gran (auto) Absolute Neuts (auto) Absolute Nucleated RBC Nucleated RBC % (auto) Sodium 127 L 127 L Potassium 4.0 4.1 Chloride 92 L 93 L Carbon Dioxide 25 21 L Anion Gap 14 17 BUN 12 Creatinine 0.83 Estim Creat Clear Calc 67.3 Estimated GFR > 60 POC Glucose 136 H Random Glucose 126 H Calcium 8.2 L 05/05/21 05/05/21 05/05/21 05:25 06:46 07:36 WBC 7.6 RBC 3.86 L Hgb 12.4 Hct 33.8 L MCV 87.6 MCH 32.1 MCHC 36.7 H RDW 12.5 Plt Count 242 MPV 9.1 L Immature Gran % (Auto) 2.2 H Neut % (Auto) 70.8 Lymph % (Auto) 13.6 L [place] % (Auto) 13.2 H Eos % (Auto) 0.1 Baso % (Auto) 0.1 Lymph # (Auto) 1.0 L [place] # (Auto) 1.0 Eos # (Auto) 0.0 Baso # (Auto) 0.0 Abs Immat Gran (auto) 0.17 H Absolute Neuts (auto) 5.4 Absolute Nucleated RBC 0.000 Nucleated RBC % (auto) 0.0 Sodium 126 L Potassium 3.8 Chloride 90 L Carbon Dioxide 19 L Anion Gap 21 H BUN 11 Creatinine 0.81 Estim Creat Clear Calc 68.7 Estimated GFR > 60 POC Glucose 115 Random Glucose 121 H Calcium 8.4 Procedures Date of Service Date of Service: 05/05/21 Assessment & Plan Assessment and plan (1) Acute hyponatremia: Status: Acute Assessment and Plan: ?1. Severe Hyponatremia with AMS and clincially appears to be euvolemic Etiol of HypoNa: c/w mixed picture including poor solute intake ( Beer Potomania) and excess PO fluid intake and possibly inapp ADH release as well; given her history assume this is predominantly chronic HypoNa and so need to correct cautiously as she is in the High-Risk category for development of CPM if too rapid correction. Current expert opinion is to incr the SNa by no more than 4-6 meq per 24 hrs So based on these targets we have again overshot our goal which would be to keep SNa at 115 to 121 ideally as of 18:00 tonight based on the adm SNa 103 ( 18: 00 0n 05/01/21)...last Sna 126 is slt above the target but within the general guidelines of no more than 8 meq/24 hrs 127 REC: PO NaCL tabs lasix 10 mg can be added Will follow mateo with team (2) Encephalopathy: Status: Acute (3) SAGAR (acute kidney injury): Status: Acute (4) Alcohol use disorder: Status: Acute Time Spent With Patient Time: Total time spent is greater than 50% in coordination of care (as documented) at patient's floor/unit and/or counseling patient: Progress Note: Quality Stroke Does the patient have a stroke diagnosis?: No
[2021-05-05] MEDS: Albuterol Sulfate (0.083%) 2.5 MG/3 ML VIAL.NEB INHALE ×3 (09:14→17:36)
--- NOTE | 2021-05-05 10:15 | PHA.MEDREC ---
Pharmacy Consult ? Medication Reconciliation Pharmacy has completed the medication reconciliation with help from [facility].
[2021-05-05 11:40] LABS: Glucose, Whole Blood 162 mg/dL (60-115)
--- NOTE | 2021-05-05 13:48 | P.PNIM_ITS ---
Subjective Subjective Date of Service: 05/05/21 Interval History: sob Constitutional Constitutional: Reports no additional constitutional complaints Eyes Eyes: Reports no additional eye complaints Physical Exam Vital Signs: Vital Signs: Last Vital Signs Temp 98.1 F 05/05/21 12:00 Pulse 96 05/05/21 12:37 Resp 20 05/05/21 12:00 BP 175/79 H 05/05/21 12:00 Pulse Ox 99 05/05/21 12:00 Body Mass Index 32.3 General: AO X 3, agitated Resp: diminished CVS: S1,S2,RRR GI: soft, non tender, non distended Neuro: motor grossly intact Psych: impaired insight Objective Data Current Medications Generic Name Dose Route Start Last Admin Trade Name Freq PRN Reason Stop Dose Admin Albuterol Sulfate 2.5 mg 05/04/21 18:12 05/05/21 12:36 Albuterol Sulfate (0.083%) 2.5 Mg/3 Ml Vial.Neb INHALE 2.5 mg RQ4H PRN Administration Shortness of Breath/Wheezing Amlodipine Besylate 10 mg 05/03/21 11:00 05/05/21 08:44 Amlodipine Besylate 10 Mg Tablet PO 10 mg DAILY YUM[facility]KO Administration Protocol Aspirin 81 mg 05/05/21 21:00 Aspirin Enteric Coated 81 Mg Tablet.Dr PO BEDTIME YUMIKO Dextrose 25 gm 05/05/21 10:30 Dextrose 50 % 25 Gm/50 Ml Vial IVPUSH Q15M PRN per Hypoglycemia Standing Ord. Protocol Escitalopram Oxalate 20 mg 05/06/21 09:00 Escitalopram Oxalate 20 Mg Tablet PO DAILY [facility] Fluticasone Propionate 1 puff 05/05/21 20:00 Fluticasone Propionate 250 Mcg Blst.W.Dev INHALE RBID [facility] Folic Acid 1 mg 05/02/21 09:00 05/05/21 08:44 Folic Acid 1 Mg/0.2 Ml Syringe IVPUSH 1 mg DAILY YUMIKO Administration Glucose 15 gm 05/05/21 10:30 Glucose Gel 15 Gm Gel..Gram. PO Q15M PRN per Hypoglycemia Standing Ord. Protocol Heparin Sodium (Porcine) 5,000 unit 05/01/21 22:00 05/05/21 06:28 Heparin Sodium,Porcine 5,000 Unit/Ml Vial SUBCUT 5,000 unit Q8H [facility]UM[facility]KO Administration Hydralazine HCl 25 mg 05/03/21 15:00 05/05/21 08:44 Hydralazine Hcl 25 Mg Tablet PO 25 mg TID [facility] Administration Protocol Insulin Human Lispro 0 unit 05/05/21 11:30 05/05/21 12:29 Insulin Lispro 100 Unit/Ml 3 Ml Vial SUBCUT Not Given QIDACHS [facility] Protocol Medication 1 each 05/02/21 09:00 No Benzodiazepines MISCELLANE DAILY [facility] Metoprolol Succinate 50 mg 05/06/21 09:00 Metoprolol Succinate Er 50 Mg Tab.Er.24h PO DAILY [facility] Protocol Montelukast Sodium 10 mg 05/05/21 21:00 Montelukast Sodium 10 Mg Tablet PO BEDTIME [facility] Ondansetron HCl 4 mg 05/03/21 08:21 05/05/21 03:44 Ondansetron Hcl 4 Mg/2 Ml Vial IVPUSH 4 mg Q6H PRN Administration Nausea Pharmacy Consult 1 each 05/05/21 09:32 Consult Rx Perform Med Rec MISCELLANE ONCE PRN Consult order Phenobarbital 15 mg 05/07/21 09:00 Phenobarbital 15 Mg Tablet PO 05/08/21 09:01 DAILY [facility] Protocol Phenobarbital 15 mg 05/04/21 21:00 05/05/21 08:44 Phenobarbital 15 Mg Tablet PO 05/06/21 09:01 15 mg BID [facility] Administration Protocol Pravastatin Sodium 20 mg 05/05/21 21:00 Pravastatin Sodium 20 Mg Tablet PO BEDTIME [facility] Quetiapine Fumarate 50 mg 05/05/21 21:00 Quetiapine Fumarate 50 Mg Tablet PO BID [facility] Thiamine HCl 100 mg 05/02/21 09:00 05/05/21 08:44 Thiamine Hcl 200 Mg/2 Ml Vial IVPUSH 100 mg BID [facility] Administration Labs CBC & Chem 7: 05/05/21 06:46 05/05/21 05:25 Labs: Laboratory Results - last 24 hr 05/04/21 05/04/21 05/04/21 16:26 18:44 18:44 MCV MCH MCHC RDW Plt Count MPV Immature Gran % (Auto) Neut % (Auto) Lymph % (Auto) [place] % (Auto) Eos % (Auto) Baso % (Auto) Lymph # (Auto) [place] # (Auto) Eos # (Auto) Baso # (Auto) Abs Immat Gran (auto) Absolute Neuts (auto) Absolute Nucleated RBC Nucleated RBC % (auto) Anion Gap 14 17 Estim Creat Clear Calc 67.3 Estimated GFR > 60 POC Glucose 129 H Random Glucose 126 H Calcium 8.2 L 05/04/21 05/05/21 05/05/21 20:25 05:25 06:46 MCV 87.6 MCH 32.1 MCHC 36.7 H RDW 12.5 Plt Count 242 MPV 9.1 L Immature Gran % (Auto) 2.2 H Neut % (Auto) 70.8 Lymph % (Auto) 13.6 L [place] % (Auto) 13.2 H Eos % (Auto) 0.1 Baso % (Auto) 0.1 Lymph # (Auto) 1.0 L [place] # (Auto) 1.0 Eos # (Auto) 0.0 Baso # (Auto) 0.0 Abs Immat Gran (auto) 0.17 H Absolute Neuts (auto) 5.4 Absolute Nucleated RBC 0.000 Nucleated RBC % (auto) 0.0 Anion Gap 21 H Estim Creat Clear Calc 68.7 Estimated GFR > 60 POC Glucose 136 H Random Glucose 121 H Calcium 8.4 05/05/21 05/05/21 07:36 11:36 MCV MCH MCHC RDW Plt Count MPV Immature Gran % (Auto) Neut % (Auto) Lymph % (Auto) [place] % (Auto) Eos % (Auto) Baso % (Auto) Lymph # (Auto) [place] # (Auto) Eos # (Auto) Baso # (Auto) Abs Immat Gran (auto) Absolute Neuts (auto) Absolute Nucleated RBC Nucleated RBC % (auto) Anion Gap Estim Creat Clear Calc Estimated GFR POC Glucose 115 162 H Random Glucose Calcium Assessment and Plan (1) Metabolic encephalopathy: Status: Acute Assessment and Plan: 65F presented with AMS found to have severe hyponatremia 103 and alcohol withdrawal. slowly corrected and given phenobarbital, now improved and downgraded 05/04/21. metabolic encephalopathy due to severe hyponatremia likely alchol related, possibly some SIADH, corrected safely, now 126, continue to monitr, fluid restrict. alcohol dependence with withdrawal continue phenobarbital bipolar seroquel DM inuslin cad asa, statin moderate intermittent asthma flovent prn nebs Quality Stroke Does the patient have a stroke diagnosis?: No VTE Prior VTE?: No VTE Risk Level:: Medical - moderate - high VTE Device Contraindication: N/A - Device Ordered VTE Drug Contraindication: N/A - Med Ordered
[2021-05-05 16:34] LABS: Glucose, Whole Blood 117 mg/dL (60-115)
[2021-05-05] MEDS: Montelukast Sodium 10 MG TABLET PO (19:50)
[2021-05-05] MEDS: QUEtiapine Fumarate 50 MG TABLET PO (19:50)
[2021-05-05] MEDS: Pravastatin Sodium 20 MG TABLET PO (19:50)
[2021-05-05] MEDS: Aspirin Enteric Coated 81 MG TABLET.DR PO (19:50)
[2021-05-05] MEDS: Fluticasone Propionate 250 MCG BLST.W.DEV 1 PUFF INHALE (20:08)
[2021-05-05 20:56] LABS: Glucose, Whole Blood 113 mg/dL (60-115)
--- NOTE | 2021-05-05 22:31 | PC.NURSE ---
asked pt if she wanted her pills in vanilla pudding, she stated yes, then when given pm meds in vanilla pudding, spit them all out, saying repeatedly nasty in echolalia. freshened mouth with gingerale and asked pt if she wanted pills in choclate pudding, she stated yes, attempt = states repeadedly nasty . no meds swallowed. 3 pills put initially in / 3 pills spit out., retried with chocolate pudding & same 3 pills in/3 pills out. 2nd rn trying to administer pm meds.
[2021-05-06] VITALS (12 sets, daily range): BP systolic 122–162; BP diastolic 61–82; PULSE 0–110; RESP 15–20; TEMP 36.3–37.1; O2SAT 93–100; BMI 33.7
[2021-05-06] MEDS: Albuterol Sulfate (0.083%) 2.5 MG/3 ML VIAL.NEB INHALE ×2 (03:49→17:28)
[2021-05-06] MEDS: Heparin Sodium,Porcine 5,000 UNIT/ML VIAL 5000 UNIT SUBCUT ×3 (05:37→22:36)
[2021-05-06 07:27] LABS: Glucose, Whole Blood 110 mg/dL (60-115)
[2021-05-06 07:46] LABS: Hematocrit 28.3 % (37-47); Hemoglobin 10.1 g/dl (12.0-16.0); Mean Corpuscular HGB Conc 35.7 g/dl (31.0-35.0); Mean Corpuscular Hemoglobin 31.5 pg (27.0-33.0); Mean Corpuscular Volume 88.2 fL (80-98); Mean Platelet Volume 9.3 fL (9.4-12.3); Platelet Count 303 X10*3/uL (160-400); Red Blood Count 3.21 X10*6/uL (4.20-5.50); Red Cell Distribution Width 12.6 % (11.0-16.0); White Blood Count 6.1 X10*3/uL (4.8-10.8)
[2021-05-06 08:06] LABS: Anion Gap 16 (12-20); Blood Urea Nitrogen 14 mg/dL (9-16); Carbon Dioxide 23 mmol/L (22-29); Chloride 88 mmol/L (96-108); Creatinine Clr Calc Pharmacy 63.9; Estimated Glomerular Filt Rate > 60; Glucose Fasting 101 mg/dL (60-99); Potassium 4.5 mmol/L (3.3-5.1); Sodium 122 mmol/L (135-145)
[2021-05-06] MEDS: Fluticasone Propionate 250 MCG BLST.W.DEV 1 PUFF INHALE ×2 (08:19→19:57)
[2021-05-06] MEDS: Escitalopram Oxalate 20 MG TABLET PO (08:30)
[2021-05-06] MEDS: hydrALAZINE HCl 25 MG TABLET PO ×3 (08:30→22:36)
[2021-05-06] MEDS: Metoprolol Succinate ER 50 MG TAB.ER.24H PO (08:30)
[2021-05-06] MEDS: amLODIPine Besylate 10 MG TABLET PO (08:30)
[2021-05-06] MEDS: QUEtiapine Fumarate 50 MG TABLET PO (08:30)
[2021-05-06] MEDS: Thiamine HCL 200 MG/2 ML VIAL 100 MG IVPUSH ×2 (08:30→22:35)
--- NOTE | 2021-05-06 09:48 | PM.PNNEP ---
Subjective Subjective Date of Service: 05/06/21 Principal diagnosis: HypoNa Interval history: sob Physical Exam Vital Signs: Vital Signs: Last Vital Signs Temp 98.8 F 05/06/21 08:00 Pulse 110 H 05/06/21 08:22 Resp 20 05/06/21 08:00 BP 162/69 H 05/06/21 08:00 Pulse Ox 100 05/06/21 08:00 Body Mass Index 33.7 Const: Other: Patient is awake and alert in not acute distress General: no acute distress, well developed, alert, awake and Physically active Orientation/consciousness: oriented to place HENMT: Head: Yes normal to inspection, Yes No palpable skull fracture present and Yes atraumatic General nose exam: Normal external nose present Face and sinus: Yes normal facial exam Mouth: Normal oral and palatal mucosa present and lip normal Throat: Yes posterior oropharynx normal Eyes: Sclerae: sclerae normal EOM: EOMs intact bilaterally Neck: Other: supple Neck: Yes normal visual inspection, Yes full ROM, Yes no lymphadenopathy, Yes trachea midline and Yes supple Chest: Chest palpation & inspection: normal inspection of the chest and normal palpation of entire chest wall Resp: Effort & Inspection: normal respiratory effort and no respiratory distress Auscultation: clear to auscultation bilaterally Cardio: Jugular venous distension: no JVD Rate: regular rate Rhythm: regular rhythm and abnormal rhythm Heart sounds: no gallops, no murmurs and no rubs GI: Inspection: Yes normal to inspection Palpation (GI): Soft to palpation, not firm, nontender, no guarding and Other GI palpation findings present ( Nontender) Auscultation: normal bowel sounds Skin: General skin exam: no rashes or lesions noted and elasticity normal Trauma: no lacerations or abrasions Wounds: no wounds Neuro: Other: Patient is awake and alert she is able to tell me that she is in the hospital she follow comand ,cranil nerve intact ,nove all extremities General: oriented to place Cranial nerves: Yes CN's II-XII intact bilaterally Extrem: General: Yes no pedal edema, No clubbing and No cyanosis Objective Data Labs CBC & Chem 7: 05/06/21 05:57 05/06/21 05:57 Labs: Laboratory Results - last 24 hr 05/05/21 05/05/21 05/05/21 11:36 16:20 20:53 WBC RBC Hgb Hct MCV MCH MCHC RDW Plt Count MPV Absolute Nucleated RBC Nucleated RBC % (auto) Sodium Potassium Chloride Carbon Dioxide Anion Gap BUN Creatinine Estim Creat Clear Calc Estimated GFR POC Glucose 162 H 117 H 113 Fasting Glucose Calcium 05/06/21 05/06/21 05/06/21 05:57 05:57 07:23 WBC 6.1 RBC 3.21 L Hgb 10.1 L Hct 28.3 L MCV 88.2 MCH 31.5 MCHC 35.7 H RDW 12.6 Plt Count 303 D MPV 9.3 L Absolute Nucleated RBC 0.000 Nucleated RBC % (auto) 0.0 Sodium 122 L Potassium 4.5 Chloride 88 L Carbon Dioxide 23 Anion Gap 16 BUN 14 Creatinine 0.89 Estim Creat Clear Calc 63.9 Estimated GFR > 60 POC Glucose 110 Fasting Glucose 101 H Calcium 8.0 L Procedures Date of Service Date of Service: 05/06/21 Assessment & Plan Assessment and plan (1) Metabolic encephalopathy: Status: Acute Assessment and Plan: 65F presented with AMS found to have severe hyponatremia 103 and alcohol withdrawal. na 126 yesterday now 122 metabolic encephalopathy due to severe hyponatremia likely alcohol related, her david is low so may be 2nd to liver disease at this point would give NS at 100 cc hr and check liver fx Time Spent With Patient Time: Total time spent is greater than 50% in coordination of care (as documented) at patient's floor/unit and/or counseling patient: Progress Note: Quality Stroke Does the patient have a stroke diagnosis?: No
[2021-05-06] MEDS: PHENobarbitaL 15 MG TABLET PO (09:50)
--- NOTE | 2021-05-06 10:24 | MHC.CLN ---
PT WITH INCREASED NUTRITION RISK R/T PRESSURE INJURY DIET RX: 2200DM 1500CC FR-WILL ADD 2GM NA R/T HX CHF RECOMMEND ADDING GLUCERNA BID AND MILTON TO PROMOTE WOUND HEALING SUPPLEMENT TO PROVIDE 634KCALS, 25G PROTEIN, 380CC FREE WATER FROM SUPPLEMENT FOR FR MONITOR PO INTAKE CLOSELY SEE ALSO CLINICAL NUTRITION ASSESSMENT
--- NOTE | 2021-05-06 10:43 | P.PNIM_ITS ---
Subjective Subjective Date of Service: 05/06/21 Interval History: asthma symptoms better Review of Systems cardiac: no chest pain respiratory: no sob Physical Exam Vital Signs: Vital Signs: Last Vital Signs Temp 98.8 F 05/06/21 08:00 Pulse 110 H 05/06/21 10:31 Resp 20 05/06/21 08:00 BP 162/69 H 05/06/21 08:00 Pulse Ox 100 05/06/21 08:00 Body Mass Index 33.7 General: AO X 3, NAD Resp:? diminished CVS: S1,S2,RRR GI: soft, non tender, non distended Neuro:? motor grossly intact Psych: impaired insight Objective Data Current Medications Generic Name Dose Route Start Last Admin Trade Name Freq PRN Reason Stop Dose Admin Albuterol Sulfate 2.5 mg 05/04/21 18:12 05/06/21 03:49 Albuterol Sulfate (0.083%) 2.5 Mg/3 Ml Vial.Neb INHALE 2.5 mg RQ4H PRN Administration Shortness of Breath/Wheezing Amlodipine Besylate 10 mg 05/03/21 11:00 05/06/21 08:30 Amlodipine Besylate 10 Mg Tablet PO 10 mg DAILY [facility] Administration Protocol Aspirin 81 mg 05/05/21 21:00 05/05/21 19:50 Aspirin Enteric Coated 81 Mg Tablet. PO 81 mg BEDTIME [facility]UM[facility]KO Administration Dextrose 25 gm 05/05/21 10:30 Dextrose 50 % 25 Gm/50 Ml Vial IVPUSH Q15M PRN per Hypoglycemia Standing Ord. Protocol Escitalopram Oxalate 20 mg 05/06/21 09:00 05/06/21 08:30 Escitalopram Oxalate 20 Mg Tablet PO 20 mg DAILY [facility] Administration Fluticasone Propionate 1 puff 05/05/21 20:00 05/06/21 08:19 Fluticasone Propionate 250 Mcg Blst.W.Dev INHALE 1 puff RBID [facility]UM[facility]KO Administration Folic Acid 1 mg 05/02/21 09:00 05/06/21 09:50 Folic Acid 1 Mg/0.2 Ml Syringe IVPUSH 1 mg DAILY [facility]KO Administration Glucose 15 gm 05/05/21 10:30 Glucose Gel 15 Gm Gel..Gram. PO Q15M PRN per Hypoglycemia Standing Ord. Protocol Heparin Sodium (Porcine) 5,000 unit 05/01/21 22:00 05/06/21 05:37 Heparin Sodium,Porcine 5,000 Unit/Ml Vial SUBCUT 5,000 unit Q8H [facility] Administration Hydralazine HCl 25 mg 05/03/21 15:00 05/06/21 08:30 Hydralazine Hcl 25 Mg Tablet PO 25 mg TID [facility] Administration Protocol Insulin Human Lispro 0 unit 05/05/21 11:30 05/06/21 07:31 Insulin Lispro 100 Unit/Ml 3 Ml Vial SUBCUT Not Given QIDACHS [facility] Protocol Medication 1 each 05/02/21 09:00 No Benzodiazepines MISCELLANE DAILY [facility] Metoprolol Succinate 50 mg 05/06/21 09:00 05/06/21 08:30 Metoprolol Succinate Er 50 Mg Tab.Er.24h PO 50 mg DAILY [facility] Administration Protocol Montelukast Sodium 10 mg 05/05/21 21:00 05/05/21 19:50 Montelukast Sodium 10 Mg Tablet PO 10 mg BEDTIME [facility]KO Administration Ondansetron HCl 4 mg 05/03/21 08:21 05/05/21 03:44 Ondansetron Hcl 4 Mg/2 Ml Vial IVPUSH 4 mg Q6H PRN Administration Nausea Pharmacy Consult 1 each 05/05/21 09:32 Consult Rx Perform Med Rec MISCELLANE ONCE PRN Consult order Phenobarbital 15 mg 05/07/21 09:00 Phenobarbital 15 Mg Tablet PO 05/08/21 09:01 DAILY [facility] Protocol Pravastatin Sodium 20 mg 05/05/21 21:00 05/05/21 19:50 Pravastatin Sodium 20 Mg Tablet PO 20 mg BEDTIME [facility] Administration Quetiapine Fumarate 50 mg 05/05/21 21:00 05/06/21 08:30 Quetiapine Fumarate 50 Mg Tablet PO 50 mg BID [facility] Administration Thiamine HCl 100 mg 05/02/21 09:00 05/06/21 08:30 Thiamine Hcl 200 Mg/2 Ml Vial IVPUSH 100 mg BID [facility]KO Administration Labs CBC & Chem 7: 05/06/21 05:57 05/06/21 05:57 Labs: Laboratory Results - last 24 hr 05/05/21 05/05/21 05/05/21 11:36 16:20 20:53 MCV MCH MCHC RDW Plt Count MPV Absolute Nucleated RBC Nucleated RBC % (auto) Anion Gap Estim Creat Clear Calc Estimated GFR POC Glucose 162 H 117 H 113 Fasting Glucose Calcium 05/06/21 05/06/21 05/06/21 05:57 05:57 07:23 MCV 88.2 MCH 31.5 MCHC 35.7 H RDW 12.6 Plt Count 303 D MPV 9.3 L Absolute Nucleated RBC 0.000 Nucleated RBC % (auto) 0.0 Anion Gap 16 Estim Creat Clear Calc 63.9 Estimated GFR > 60 POC Glucose 110 Fasting Glucose 101 H Calcium 8.0 L Assessment and Plan (1) Metabolic encephalopathy: Status: Acute Assessment and Plan: 65F presented with AMS found to have severe hyponatremia 103 and alcohol withdrawal. slowly corrected and given phenobarbital, now improved and downgraded 05/04/21. metabolic encephalopathy due to severe hyponatremia likely alchol related, possibly some SIADH, corrected safely to 127 now decreased back to 122, ?compliance with fluid restriction, will restart NaCl, monitor closely alcohol dependence with withdrawal continue phenobarbital bipolar seroquel DM inuslin cad asa, statin moderate intermittent asthma flovent prn nebs Quality Stroke Does the patient have a stroke diagnosis?: No VTE Prior VTE?: No VTE Risk Level:: Medical - moderate - high VTE Device Contraindication: N/A - Device Ordered VTE Drug Contraindication: N/A - Med Ordered
--- NOTE | 2021-05-06 11:20 | MHC.CM.PN ---
Addendum entered by Diamante Stallings 05/06/21 13:34: CM SPOKE TO NEIDA BARNETT FROM [facility] ([phone]) WHO REPORTS SHE IS CONCERNED ABOUT THE PT GOING HOME. SHE REPORTS THE PT FALLS REGULARLY AND IS A SAFETY RISK. CM INFORMED HER THE PT HAS BEEN PLACED IN A SNF AFTER MULTIPLE HOSPITALIZATIONS HOWEVER SHE AND HER HCP SIGN HER OUT RIGHT AFTER SHE IS ADMITTED. NEIDA REPORTED BEING AWARE OF THIS PROBLEM AND STATES SHE WILL SPEAK TO THE HCP MIKO AND HAVE THE [facility] NURSE DO THE SAME. CM WILL MAKE REFERRALS TO AREA SNF'S. Original Note: KAMILA RECEIVED A MESSAGE FROM [facility]. THIS PT IS ACTIVE WITH THEIR AGENCY. REFERRAL SENT VIA [facility] FOR THEM TO FOLLOW ADMISSION.
[2021-05-06 11:25] LABS: Glucose, Whole Blood 100 mg/dL (60-115)
[2021-05-06] MEDS: Sodium Chloride Tab 1 GM TABLET PO ×3 (12:03→22:37)
[2021-05-06 14:31] LABS: Anion Gap 13 (12-20); Blood Urea Nitrogen 16 mg/dL (9-16); Calcium 8.3 mg/dL (8.4-10.2); Carbon Dioxide 26 mmol/L (22-29); Chloride 88 mmol/L (96-108); Creatinine Clr Calc Pharmacy 56.3; Estimated Glomerular Filt Rate 55; Glucose Random 141 mg/dL (60-115); Potassium 4.7 mmol/L (3.3-5.1); Sodium 122 mmol/L (135-145)
[2021-05-06 16:21] LABS: Glucose, Whole Blood 87 mg/dL (60-115)
[2021-05-06 20:50] LABS: Glucose, Whole Blood 109 mg/dL (60-115)
[2021-05-06] MEDS: Montelukast Sodium 10 MG TABLET PO (22:36)
[2021-05-06] MEDS: Aspirin Enteric Coated 81 MG TABLET.DR PO (22:36)
[2021-05-06 22:38] LABS: Anion Gap 11 (12-20); Blood Urea Nitrogen 16 mg/dL (9-16); Calcium 8.1 mg/dL (8.4-10.2); Carbon Dioxide 25 mmol/L (22-29); Chloride 90 mmol/L (96-108); Creatinine Clr Calc Pharmacy 60.5; Estimated Glomerular Filt Rate 59; Glucose Random 97 mg/dL (60-115); Potassium 4.1 mmol/L (3.3-5.1); Sodium 122 mmol/L (135-145)
[2021-05-06] MEDS: Pravastatin Sodium 20 MG TABLET PO (22:38)
[2021-05-06] MEDS: traZODone HCL 25 MG HALFTAB PO (22:59)
[2021-05-07] VITALS (11 sets, daily range): BP systolic 122–157; BP diastolic 53–80; PULSE 73–88; RESP 16–20; TEMP 36.3–37.2; O2SAT 95–100; BMI 34.3
[2021-05-07] MEDS: Heparin Sodium,Porcine 5,000 UNIT/ML VIAL 5000 UNIT SUBCUT ×3 (05:34→21:29)
[2021-05-07 07:14] LABS: Anion Gap 11 (12-20); Blood Urea Nitrogen 15 mg/dL (9-16); Calcium 8.1 mg/dL (8.4-10.2); Carbon Dioxide 25 mmol/L (22-29); Chloride 93 mmol/L (96-108); Creatinine Clr Calc Pharmacy 57.2; Estimated Glomerular Filt Rate 56; Glucose Fasting 62 mg/dL (60-99); Sodium 125 mmol/L (135-145)
[2021-05-07 07:20] LABS: Glucose, Whole Blood 81 mg/dL (60-115)
[2021-05-07] MEDS: Fluticasone Propionate 250 MCG BLST.W.DEV 1 PUFF INHALE ×2 (08:02→19:45)
--- NOTE | 2021-05-07 08:37 | PM.PNNEP ---
Subjective Subjective Date of Service: 05/07/21 Principal diagnosis: HypoNa Interval history: asthma symptoms better Physical Exam Vital Signs: Vital Signs: Last Vital Signs Temp 97.4 F 05/07/21 08:00 Pulse 88 05/07/21 08:03 Resp 20 05/07/21 08:00 BP 157/75 H 05/07/21 08:00 Pulse Ox 98 05/07/21 08:00 Body Mass Index 34.3 Const: Other: Patient is awake and alert in not acute distress General: no acute distress, well developed, alert, awake and Physically active Orientation/consciousness: oriented to place HENMT: Head: Yes normal to inspection, Yes No palpable skull fracture present and Yes atraumatic General nose exam: Normal external nose present Face and sinus: Yes normal facial exam Mouth: Normal oral and palatal mucosa present and lip normal Throat: Yes posterior oropharynx normal Eyes: Sclerae: sclerae normal EOM: EOMs intact bilaterally Neck: Other: supple Neck: Yes normal visual inspection, Yes full ROM, Yes no lymphadenopathy, Yes trachea midline and Yes supple Chest: Chest palpation & inspection: normal inspection of the chest and normal palpation of entire chest wall Resp: Effort & Inspection: normal respiratory effort and no respiratory distress Auscultation: clear to auscultation bilaterally Cardio: Jugular venous distension: no JVD Rate: regular rate Rhythm: regular rhythm and abnormal rhythm Heart sounds: no gallops, no murmurs and no rubs GI: Inspection: Yes normal to inspection Palpation (GI): Soft to palpation, not firm, nontender, no guarding and Other GI palpation findings present ( Nontender) Auscultation: normal bowel sounds Skin: General skin exam: no rashes or lesions noted and elasticity normal Trauma: no lacerations or abrasions Wounds: no wounds Neuro: Other: Patient is awake and alert she is able to tell me that she is in the hospital she follow comand ,cranil nerve intact ,nove all extremities General: oriented to place Cranial nerves: Yes CN's II-XII intact bilaterally Extrem: General: Yes no pedal edema, No clubbing and No cyanosis Objective Data Labs CBC & Chem 7: 05/06/21 05:57 05/07/21 05:37 Labs: Laboratory Results - last 24 hr 05/06/21 05/06/21 05/06/21 11:07 13:45 16:18 Sodium 122 L Potassium 4.7 Chloride 88 L Carbon Dioxide 26 Anion Gap 13 BUN 16 Creatinine 1.01 Estim Creat Clear Calc 56.3 Estimated GFR 55 POC Glucose 100 87 Random Glucose 141 H Fasting Glucose Calcium 8.3 L 05/06/21 05/06/21 05/07/21 20:47 22:00 05:37 Sodium 122 L 125 L Potassium 4.1 4.0 Chloride 90 L 93 L Carbon Dioxide 25 25 Anion Gap 11 L 11 L BUN 16 15 Creatinine 0.94 0.99 Estim Creat Clear Calc 60.5 57.2 Estimated GFR 59 56 POC Glucose 109 Random Glucose 97 Fasting Glucose 62 D Calcium 8.1 L 8.1 L 05/07/21 07:14 Sodium Potassium Chloride Carbon Dioxide Anion Gap BUN Creatinine Estim Creat Clear Calc Estimated GFR POC Glucose 81 Random Glucose Fasting Glucose Calcium Procedures Date of Service Date of Service: 05/07/21 Assessment & Plan Assessment and plan (1) Metabolic encephalopathy: Status: Acute Assessment and Plan: 65F presented with AMS found to have severe hyponatremia 103 and alcohol withdrawal. slowly corrected and given phenobarbital, now improved and downgraded 05/04/21. metabolic encephalopathy due to severe hyponatremia likely alcohol related, slowly improved 125 now compliance with fluid restriction, will restart NaCl, monitor closely alcohol dependence with withdrawal continue phenobarbital bipolar seroquel DM insulin cad asa, statin moderate intermittent asthma flovent prn nebs Time Spent With Patient Time: Total time spent is greater than 50% in coordination of care (as documented) at patient's floor/unit and/or counseling patient: Progress Note: Quality Stroke Does the patient have a stroke diagnosis?: No
[2021-05-07] MEDS: Thiamine HCL 200 MG/2 ML VIAL 100 MG IVPUSH ×2 (09:32→21:30)
[2021-05-07] MEDS: PHENobarbitaL 15 MG TABLET PO (09:33)
[2021-05-07] MEDS: hydrALAZINE HCl 25 MG TABLET PO ×3 (09:34→21:28)
[2021-05-07] MEDS: Metoprolol Succinate ER 50 MG TAB.ER.24H PO (09:34)
[2021-05-07] MEDS: amLODIPine Besylate 10 MG TABLET PO (09:34)
[2021-05-07] MEDS: Sodium Chloride Tab 1 GM TABLET PO ×3 (09:35→21:28)
[2021-05-07] MEDS: Magnesium Hydrox/Alum Hydrox 30 ML ORAL.SUSP PO ×2 (10:30→17:51)
[2021-05-07 11:04] LABS: Glucose, Whole Blood 114 mg/dL (60-115)
--- NOTE | 2021-05-07 12:02 | MHC.CM.PN ---
Female 66 DX Hyponatremia. Careteam consult needed prior to discharge. Discharge is not planned today. DP home no services. S.O. will provide transport to home. CM will follow to assess for changes in needs @ DC.
--- NOTE | 2021-05-07 14:37 | PC.NURSE ---
Patient in [facility] for monitoring of Hyponatremia. Na+ 125 today. Patient alert and oriented. Tele monitor showing NSR. VSS. C/O stomach pain, reported to MD that it was a burning sensation. Maalox ordered and given with fair effect. Noontime, patient c/o nausea with dry heaves. Tolerating small sips of H2O. Meds as ordered. Voiding without difficulty. POCs not requiring Insulin coverage. BM 05/06. Stage 2 open area to coccyx covered with Border foam dressing.
--- NOTE | 2021-05-07 14:50 | HO.PM.IMPN ---
Subjective Subjective Date of Service: 05/07/21 Interval History: T a patient was seen and evaluated this morning Laying in bed, complaining of epigastric pain Sodium improving slowly to 125 this morning Denies any fever, chills or shortness of breath No reported other overnight events. Systemic review: No fever, chills or weakness No chest pain, palpitation No shortness of breath or coughing Reporting epigastric abdominal pain, nausea or vomiting No urinary symptoms No any rash or wounds Physical Exam Vital Signs: Vital Signs: Last Vital Signs Temp 98.2 F 05/07/21 11:13 Pulse 76 05/07/21 14:26 Resp 20 05/07/21 11:13 BP 134/73 05/07/21 14:26 Pulse Ox 97 05/07/21 13:44 Body Mass Index 34.3 Const: Other: Constitutional : Alert, oriented, not in distress Neck : Normal inspection, Supple Cardiovascular : RRR, S1 S2, no lower extremity edema Respiratory : Good bilateral air entry, no crackles, wheezes or rhonchi Gastrointestinal: soft, lax, Normal bowel sounds, epigastric tenderness Skin : Warm, Dry Neurological : Alert & oriented x3, No focal deficit Objective Data Current Medications Generic Name Dose Route Start Last Admin Trade Name Freq PRN Reason Stop Dose Admin Al Hydroxide/Mg Hydroxide 30 ml 05/07/21 09:48 05/07/21 10:30 Magnesium Hydrox/Alum Hydrox 30 Ml Oral.Susp PO 30 ml Q6H PRN Administration Dyspepsia Albuterol Sulfate 2.5 mg 05/04/21 18:12 05/06/21 17:28 Albuterol Sulfate (0.083%) 2.5 Mg/3 Ml Vial.Neb INHALE 2.5 mg RQ4H PRN Administration Shortness of Breath/Wheezing Amlodipine Besylate 10 mg 05/03/21 11:00 05/07/21 09:34 Amlodipine Besylate 10 Mg Tablet PO 10 mg DAILY YUMIKO Administration Protocol Aspirin 81 mg 05/05/21 21:00 05/06/21 22:36 Aspirin Enteric Coated 81 Mg Tablet.Dr PO 81 mg BEDTIME YUMIKO Administration Dextrose 25 gm 05/05/21 10:30 Dextrose 50 % 25 Gm/50 Ml Vial IVPUSH Q15M PRN per Hypoglycemia Standing Ord. Protocol Fluticasone Propionate 1 puff 05/05/21 20:00 05/07/21 08:02 Fluticasone Propionate 250 Mcg Blst.W.Dev INHALE 1 puff RBID YUMIKO Administration Folic Acid 1 mg 05/08/21 09:00 Folic Acid 1 Mg Tablet PO DAILY YUMIKO Glucose 15 gm 05/05/21 10:30 Glucose Gel 15 Gm Gel..Gram. PO Q15M PRN per Hypoglycemia Standing Ord. Protocol Guaifenesin 5 ml 05/06/21 18:24 Guaifenesin 100 Mg/5 Ml Liquid PO Q6H PRN cough Heparin Sodium (Porcine) 5,000 unit 05/01/21 22:00 05/07/21 14:26 Heparin Sodium,Porcine 5,000 Unit/Ml Vial SUBCUT 5,000 unit Q8H YUMIKO Administration Hydralazine HCl 25 mg 05/03/21 15:00 05/07/21 14:26 Hydralazine Hcl 25 Mg Tablet PO 25 mg TID YUMIKO Administration Protocol Insulin Human Lispro 0 unit 05/05/21 11:30 05/07/21 11:44 Insulin Lispro 100 Unit/Ml 3 Ml Vial SUBCUT Not Given QIDACHS [facility] Protocol Medication 1 each 05/02/21 09:00 No Benzodiazepines MISCELLANE DAILY [facility] Metoprolol Succinate 50 mg 05/06/21 09:00 05/07/21 09:34 Metoprolol Succinate Er 50 Mg Tab.Er.24h PO 50 mg DAILY YUMIKO Administration Protocol Montelukast Sodium 10 mg 05/05/21 21:00 05/06/21 22:36 Montelukast Sodium 10 Mg Tablet PO 10 mg BEDTIME YUMIKO Administration Ondansetron HCl 4 mg 05/03/21 08:21 05/07/21 11:49 Ondansetron Hcl 4 Mg/2 Ml Vial IVPUSH 4 mg Q6H PRN Administration Nausea Pharmacy Consult 1 each 05/05/21 09:32 Consult Rx Perform Med Rec MISCELLANE ONCE PRN Consult order Phenobarbital 15 mg 05/07/21 09:00 05/07/21 09:33 Phenobarbital 15 Mg Tablet PO 05/08/21 09:01 15 mg DAILY YUMIKO Administration Protocol Pravastatin Sodium 20 mg 05/05/21 21:00 05/06/21 22:38 Pravastatin Sodium 20 Mg Tablet PO 20 mg BEDTIME YUMIKO Administration Sodium Chloride 1 gm 05/06/21 10:50 05/07/21 14:26 Sodium Chloride Tab 1 Gm Tablet PO 1 gm TID YUMIKO Administration Thiamine HCl 100 mg 05/02/21 09:00 05/07/21 09:32 Thiamine Hcl 200 Mg/2 Ml Vial IVPUSH 100 mg BID YUMIKO Administration Labs CBC & Chem 7: 05/06/21 05:57 05/07/21 05:37 Labs: Laboratory Results - last 24 hr 05/06/21 05/06/21 05/06/21 16:18 20:47 22:00 Anion Gap 11 L Estim Creat Clear Calc 60.5 Estimated GFR 59 POC Glucose 87 109 Random Glucose 97 Fasting Glucose Calcium 8.1 L 05/07/21 05/07/21 05/07/21 05:37 07:14 11:00 Anion Gap 11 L Estim Creat Clear Calc 57.2 Estimated GFR 56 POC Glucose 81 114 Random Glucose Fasting Glucose 62 D Calcium 8.1 L Assessment and Plan (1) Metabolic encephalopathy: Status: Acute (2) Delirium tremens: Status: Acute (3) Acute hyponatremia: Status: Acute Assessment and Plan: 65F presented with AMS found to have severe hyponatremia 103 and alcohol withdrawal. slowly corrected and given phenobarbital, now improved and downgraded 05/04/21. metabolic encephalopathy due to severe hyponatremia likely alchol related, possibly some SIADH, Hyponatremia corrected to 125 fluid restriction, continue NaCl, monitor closely alcohol dependence with withdrawal continue phenobarbital bipolar seroquel DM inuslin cad asa, statin moderate intermittent asthma flovent prn nebs Quality Stroke Does the patient have a stroke diagnosis?: No VTE Prior VTE?: No VTE Risk Level:: Medical - moderate - high VTE Device Contraindication: N/A - Device Ordered VTE Drug Contraindication: N/A - Med Ordered
[2021-05-07 16:21] LABS: Anion Gap 11 (12-20); Blood Urea Nitrogen 13 mg/dL (9-16); Calcium 8.4 mg/dL (8.4-10.2); Carbon Dioxide 25 mmol/L (22-29); Chloride 93 mmol/L (96-108); Creatinine Clr Calc Pharmacy 57.8; Estimated Glomerular Filt Rate 56; Glucose Random 125 mg/dL (60-115); Potassium 4.2 mmol/L (3.3-5.1); Sodium 125 mmol/L (135-145)
[2021-05-07 16:35] LABS: Glucose, Whole Blood 135 mg/dL (60-115)
[2021-05-07] MEDS: Urea 15 GM POWDER 30 GM PO (17:51)
[2021-05-07 20:41] LABS: Glucose, Whole Blood 149 mg/dL (60-115)
[2021-05-07] MEDS: Montelukast Sodium 10 MG TABLET PO (21:27)
[2021-05-07] MEDS: Aspirin Enteric Coated 81 MG TABLET.DR PO (21:28)
[2021-05-07] MEDS: Sucralfate 1 GM TABLET PO (21:28)
[2021-05-07] MEDS: Pravastatin Sodium 20 MG TABLET PO (21:28)
[2021-05-08] VITALS (11 sets, daily range): BP systolic 125–158; BP diastolic 62–88; PULSE 70–78; RESP 12–20; TEMP 36.1–36.8; O2SAT 95–99; BMI 32.5
[2021-05-08] MEDS: Heparin Sodium,Porcine 5,000 UNIT/ML VIAL 5000 UNIT SUBCUT ×3 (04:59→22:02)
[2021-05-08 07:09] LABS: Anion Gap 14 (12-20); Blood Urea Nitrogen 33 mg/dL (9-16); Calcium 8.6 mg/dL (8.4-10.2); Carbon Dioxide 25 mmol/L (22-29); Chloride 93 mmol/L (96-108); Creatinine Clr Calc Pharmacy 56.7; Estimated Glomerular Filt Rate 57; Glucose Random 119 mg/dL (60-115); Potassium 4.4 mmol/L (3.3-5.1); Sodium 128 mmol/L (135-145)
[2021-05-08 07:40] LABS: Glucose, Whole Blood 140 mg/dL (60-115)
[2021-05-08] MEDS: Metoprolol Succinate ER 50 MG TAB.ER.24H PO (08:33)
[2021-05-08] MEDS: Sucralfate 1 GM TABLET PO ×4 (08:33→22:06)
[2021-05-08] MEDS: Urea 15 GM POWDER 30 GM PO (08:33)
[2021-05-08] MEDS: Sodium Chloride Tab 1 GM TABLET PO ×2 (08:34→14:56)
[2021-05-08] MEDS: Folic Acid 1 MG TABLET PO (08:34)
[2021-05-08] MEDS: Thiamine HCL 200 MG/2 ML VIAL 100 MG IVPUSH ×2 (08:34→22:02)
[2021-05-08] MEDS: amLODIPine Besylate 10 MG TABLET PO (08:34)
[2021-05-08] MEDS: PHENobarbitaL 15 MG TABLET PO (08:34)
[2021-05-08] MEDS: hydrALAZINE HCl 25 MG TABLET PO ×3 (08:34→22:03)
--- NOTE | 2021-05-08 10:51 | MHC.CLN ---
F/U PO INTAKE VARIABLE NOTED PT WITH NAUSEA AND DRY HEAVES YESTERDAY DIET RX: 2200DM 2GM NA 1500CC FR- APPROPRIATE PT RECEIVING GLUCERNA BID AND MILTON TO PROMOTE WOUND HEALING SUPPLEMENT TO PROVIDE 634KCALS, 25G PROTEIN, 380CC FREE WATER FROM SUPPLEMENT FOR F.R. MONITOR PO INTAKE CLOSELY
[2021-05-08 12:03] LABS: Glucose, Whole Blood 110 mg/dL (60-115)
[2021-05-08 13:14] LABS: Anion Gap 12 (12-20); Blood Urea Nitrogen 61 mg/dL (9-16); Calcium 8.7 mg/dL (8.4-10.2); Carbon Dioxide 25 mmol/L (22-29); Chloride 93 mmol/L (96-108); Creatinine Clr Calc Pharmacy 58.5; Estimated Glomerular Filt Rate 59; Glucose Random 102 mg/dL (60-115); Potassium 4.3 mmol/L (3.3-5.1); Sodium 126 mmol/L (135-145)
--- NOTE | 2021-05-08 15:18 | P.PNIM_ITS ---
Subjective Subjective Date of Service: 05/08/21 Interval History: patient was seen and evaluated this morning Laying in bed, complaining of epigastric pain Sodium improving slowly to 128 this morning but dropped to 126 later Denies any fever, chills or shortness of breath No reported other overnight events. Systemic review: No fever, chills or weakness No chest pain, palpitation No shortness of breath or coughing Reporting epigastric abdominal pain, nausea or vomiting No urinary symptoms No any rash or wounds Physical Exam Vital Signs: Vital Signs: Last Vital Signs Temp 97.7 F 05/08/21 12:00 Pulse 74 05/08/21 14:56 Resp 20 05/08/21 12:00 BP 133/62 05/08/21 14:56 Pulse Ox 98 05/08/21 12:00 Body Mass Index 32.5 Const: Other: Constitutional : Alert, oriented, not in distress Neck : Normal inspection, Supple Cardiovascular : RRR, S1 S2, no lower extremity edema Respiratory : Good bilateral air entry, no crackles, wheezes or rhonchi Gastrointestinal: soft, lax, Normal bowel sounds, epigastric tenderness Skin : Warm, Dry Neurological : Alert & oriented x3, No focal deficit Objective Data Current Medications Generic Name Dose Route Start Last Admin Trade Name Freq PRN Reason Stop Dose Admin Al Hydroxide/Mg Hydroxide 30 ml 05/07/21 09:48 05/07/21 17:51 Magnesium Hydrox/Alum Hydrox 30 Ml Oral.Susp PO 30 ml Q6H PRN Administration Dyspepsia Al Hydroxide/Mg Hydroxide 30 ml 05/07/21 18:39 Magnesium Hydrox/Alum Hydrox 30 Ml Oral.Susp PO Q4H PRN Dyspepsia Albuterol Sulfate 2.5 mg 05/04/21 18:12 05/06/21 17:28 Albuterol Sulfate (0.083%) 2.5 Mg/3 Ml Vial.Neb INHALE 2.5 mg RQ4H PRN Administration Shortness of Breath/Wheezing Amlodipine Besylate 10 mg 05/03/21 11:00 05/08/21 08:34 Amlodipine Besylate 10 Mg Tablet PO 10 mg DAILY YUMIKO Administration Protocol Aspirin 81 mg 05/05/21 21:00 05/07/21 21:28 Aspirin Enteric Coated 81 Mg Tablet. PO 81 mg BEDTIME YUMIKO Administration Dextrose 25 gm 05/05/21 10:30 Dextrose 50 % 25 Gm/50 Ml Vial IVPUSH Q15M PRN per Hypoglycemia Standing Ord. Protocol Fluticasone Propionate 1 puff 05/05/21 20:00 05/08/21 07:27 Fluticasone Propionate 250 Mcg Blst.W.Dev INHALE Not Given RBID YUMIKO Folic Acid 1 mg 05/08/21 09:00 05/08/21 08:34 Folic Acid 1 Mg Tablet PO 1 mg DAILY YUMIKO Administration Glucose 15 gm 05/05/21 10:30 Glucose Gel 15 Gm Gel..Gram. PO Q15M PRN per Hypoglycemia Standing Ord. Protocol Guaifenesin 5 ml 05/06/21 18:24 Guaifenesin 100 Mg/5 Ml Liquid PO Q6H PRN cough Heparin Sodium (Porcine) 5,000 unit 05/01/21 22:00 05/08/21 14:56 Heparin Sodium,Porcine 5,000 Unit/Ml Vial SUBCUT 5,000 unit Q8H YUMIKO Administration Hydralazine HCl 25 mg 05/03/21 15:00 05/08/21 14:56 Hydralazine Hcl 25 Mg Tablet PO 25 mg TID YUMIKO Administration Protocol Insulin Human Lispro 0 unit 05/05/21 11:30 05/08/21 11:54 Insulin Lispro 100 Unit/Ml 3 Ml Vial SUBCUT Not Given QIDACHS [facility] Protocol Medication 1 each 05/02/21 09:00 No Benzodiazepines MISCELLANE DAILY YUMIKO Metoprolol Succinate 50 mg 05/06/21 09:00 05/08/21 08:33 Metoprolol Succinate Er 50 Mg Tab.Er.24h PO 50 mg DAILY YUMIKO Administration Protocol Montelukast Sodium 10 mg 05/05/21 21:00 05/07/21 21:27 Montelukast Sodium 10 Mg Tablet PO 10 mg BEDTIME YUMIKO Administration Ondansetron HCl 4 mg 05/03/21 08:21 05/07/21 17:54 Ondansetron Hcl 4 Mg/2 Ml Vial IVPUSH 4 mg Q6H PRN Administration Nausea Pharmacy Consult 1 each 05/05/21 09:32 Consult Rx Perform Med Rec MISCELLANE ONCE PRN Consult order Pravastatin Sodium 20 mg 05/05/21 21:00 05/07/21 21:28 Pravastatin Sodium 20 Mg Tablet PO 20 mg BEDTIME YUMIKO Administration Sodium Chloride 1 gm 05/06/21 10:50 05/08/21 14:56 Sodium Chloride Tab 1 Gm Tablet PO 1 gm TID YUMIKO Administration Sucralfate 1 gm 05/07/21 21:00 05/08/21 11:52 Sucralfate 1 Gm Tablet PO 1 gm QIDACHS YUMIKO Administration Thiamine HCl 100 mg 05/02/21 09:00 05/08/21 08:34 Thiamine Hcl 200 Mg/2 Ml Vial IVPUSH 100 mg BID YUMIKO Administration Labs CBC & Chem 7: 05/06/21 05:57 05/08/21 12:20 Labs: Laboratory Results - last 24 hr 05/07/21 05/07/21 05/07/21 15:27 16:26 20:32 Anion Gap 11 L Estim Creat Clear Calc 57.8 Estimated GFR 56 POC Glucose 135 H 149 H Random Glucose 125 H Calcium 8.4 05/08/21 05/08/21 05/08/21 05:39 07:31 11:54 Anion Gap 14 Estim Creat Clear Calc 56.7 Estimated GFR 57 POC Glucose 140 H 110 Random Glucose 119 H Calcium 8.6 05/08/21 12:20 Anion Gap 12 Estim Creat Clear Calc 58.5 Estimated GFR 59 POC Glucose Random Glucose 102 Calcium 8.7 Assessment and Plan (1) Metabolic encephalopathy: Status: Acute (2) Delirium tremens: Status: Acute (3) Alcohol use disorder: Status: Acute (4) Acute hyponatremia: Status: Acute Assessment and Plan: 65F presented with AMS found to have severe hyponatremia 103 and alcohol withdrawal. slowly corrected and given phenobarbital, now improved and downgraded 05/04/21. metabolic encephalopathy due to severe hyponatremia likely alchol related, possibly some SIADH, Hyponatremia Improved to 128 this morning then dropped to 126 fluid restriction continue NaCl, monitor closely alcohol dependence with withdrawal continue phenobarbital bipolar seroquel DM inuslin cad asa, statin moderate intermittent asthma flovent prn nebs Quality Stroke Does the patient have a stroke diagnosis?: No VTE Prior VTE?: No VTE Risk Level:: Medical - moderate - high VTE Device Contraindication: N/A - Device Ordered VTE Drug Contraindication: N/A - Med Ordered
[2021-05-08 16:07] LABS: Glucose, Whole Blood 105 mg/dL (60-115)
[2021-05-08 20:32] LABS: Glucose, Whole Blood 118 mg/dL (60-115)
[2021-05-08] MEDS: Montelukast Sodium 10 MG TABLET PO (22:02)
[2021-05-08] MEDS: Sodium Chloride Tab 1 GM TABLET 2 GM PO (22:03)
[2021-05-08] MEDS: Magnesium Hydrox/Alum Hydrox 30 ML ORAL.SUSP PO (22:05)
[2021-05-08] MEDS: Aspirin Enteric Coated 81 MG TABLET.DR PO (22:05)
[2021-05-08] MEDS: Pravastatin Sodium 20 MG TABLET PO (22:06)
[2021-05-09] VITALS (11 sets, daily range): BP systolic 97–150; BP diastolic 61–79; PULSE 70–89; RESP 16–20; TEMP 36.1–36.6; O2SAT 93–99; BMI 32.5
[2021-05-09] MEDS: Acetaminophen 325 MG TABLET 650 MG PO ×2 (00:56→07:37)
[2021-05-09 06:43] LABS: Anion Gap 14 (12-20); Blood Urea Nitrogen 34 mg/dL (9-16); Calcium 8.6 mg/dL (8.4-10.2); Carbon Dioxide 23 mmol/L (22-29); Chloride 93 mmol/L (96-108); Estimated Glomerular Filt Rate > 60; Glucose Random 109 mg/dL (60-115); Potassium 4.1 mmol/L (3.3-5.1); Sodium 126 mmol/L (135-145)
[2021-05-09] MEDS: Heparin Sodium,Porcine 5,000 UNIT/ML VIAL 5000 UNIT SUBCUT ×3 (06:47→20:19)
[2021-05-09 07:23] LABS: Glucose, Whole Blood 105 mg/dL (60-115)
[2021-05-09] MEDS: Sucralfate 1 GM TABLET PO ×4 (07:38→20:18)
[2021-05-09] MEDS: amLODIPine Besylate 10 MG TABLET PO (07:38)
[2021-05-09] MEDS: hydrALAZINE HCl 25 MG TABLET PO ×3 (07:38→20:18)
[2021-05-09] MEDS: Folic Acid 1 MG TABLET PO (07:38)
[2021-05-09] MEDS: Sodium Chloride Tab 1 GM TABLET 2 GM PO ×3 (07:38→20:18)
[2021-05-09] MEDS: Metoprolol Succinate ER 50 MG TAB.ER.24H PO (07:38)
[2021-05-09] MEDS: Thiamine HCL 200 MG/2 ML VIAL 100 MG IVPUSH ×2 (07:39→20:19)
[2021-05-09] MEDS: Fluticasone Propionate 250 MCG BLST.W.DEV 1 PUFF INHALE (08:29)
--- NOTE | 2021-05-09 08:44 | PM.PNNEP ---
Subjective Subjective Date of Service: 05/09/21 Principal diagnosis: HypoNa Interval history: Sodium improving slowly now 126 Denies any fever, chills or shortness of breath continue nacl tabs add lasix 10 mg qd Physical Exam Vital Signs: Vital Signs: Last Vital Signs Temp 97.9 F 05/09/21 07:07 Pulse 78 05/09/21 08:30 Resp 20 05/09/21 07:07 BP 150/66 H 05/09/21 07:38 Pulse Ox 93 05/09/21 07:07 Body Mass Index 32.5 Const: Other: Constitutional : Alert, oriented, not in distress Neck : Normal inspection, Supple Cardiovascular : RRR, S1 S2, no lower extremity edema Respiratory : Good bilateral air entry, no crackles, wheezes or rhonchi Gastrointestinal: soft, lax, Normal bowel sounds, epigastric tenderness Skin : Warm, Dry Neurological : Alert & oriented x3, No focal deficit General: no acute distress, well developed, alert, awake and Physically active Orientation/consciousness: oriented to place HENMT: Head: Yes normal to inspection, Yes No palpable skull fracture present and Yes atraumatic General nose exam: Normal external nose present Face and sinus: Yes normal facial exam Mouth: Normal oral and palatal mucosa present and lip normal Throat: Yes posterior oropharynx normal Eyes: Sclerae: sclerae normal EOM: EOMs intact bilaterally Neck: Other: supple Neck: Yes normal visual inspection, Yes full ROM, Yes no lymphadenopathy, Yes trachea midline and Yes supple Chest: Chest palpation & inspection: normal inspection of the chest and normal palpation of entire chest wall Resp: Effort & Inspection: normal respiratory effort and no respiratory distress Auscultation: clear to auscultation bilaterally Cardio: Jugular venous distension: no JVD Rate: regular rate Rhythm: regular rhythm and abnormal rhythm Heart sounds: no gallops, no murmurs and no rubs GI: Inspection: Yes normal to inspection Palpation (GI): Soft to palpation, not firm, nontender, no guarding and Other GI palpation findings present ( Nontender) Auscultation: normal bowel sounds Skin: General skin exam: no rashes or lesions noted and elasticity normal Trauma: no lacerations or abrasions Wounds: no wounds Neuro: Other: Patient is awake and alert she is able to tell me that she is in the hospital she follow comand ,cranil nerve intact ,nove all extremities General: oriented to place Cranial nerves: Yes CN's II-XII intact bilaterally Extrem: General: Yes no pedal edema, No clubbing and No cyanosis Objective Data Labs CBC & Chem 7: 05/06/21 05:57 05/09/21 05:28 Labs: Laboratory Results - last 24 hr 05/08/21 05/08/21 05/08/21 11:54 12:20 16:04 Sodium 126 L Potassium 4.3 Chloride 93 L Carbon Dioxide 25 Anion Gap 12 BUN 61 H D Creatinine 0.94 Estim Creat Clear Calc 58.5 Estimated GFR 59 POC Glucose 110 105 Random Glucose 102 Calcium 8.7 05/08/21 05/09/21 05/09/21 20:29 05:28 07:19 Sodium 126 L Potassium 4.1 Chloride 93 L Carbon Dioxide 23 Anion Gap 14 BUN 34 H Creatinine 0.86 Estim Creat Clear Calc 64.0 Estimated GFR > 60 POC Glucose 118 H 105 Random Glucose 109 Calcium 8.6 Procedures Date of Service Date of Service: 05/09/21 Assessment & Plan Assessment and plan (1) Metabolic encephalopathy: Status: Acute (2) Delirium tremens: Status: Acute (3) Alcohol use disorder: Status: Acute (4) Acute hyponatremia: Status: Acute Assessment and Plan: 65F presented with AMS found to have severe hyponatremia 103 and alcohol withdrawal. slowly corrected and given phenobarbital, now improved and downgraded 05/04/21. metabolic encephalopathy due to severe hyponatremia likely alcohol related, possibly some SIADH, Hyponatremia Improved to 128 this morning then dropped to 126 fluid restriction continue NaCl, monitor closely Time Spent With Patient Time: Total time spent is greater than 50% in coordination of care (as documented) at patient's floor/unit and/or counseling patient: Progress Note: Quality Stroke Does the patient have a stroke diagnosis?: No
[2021-05-09] MEDS: Furosemide 20 MG TABLET PO (10:46)
[2021-05-09] MEDS: Morphine Sulfate 2 MG/ML CARTRIDGE 1 MG IVPUSH (10:46)
[2021-05-09] MEDS: Urea 15 GM POWDER 30 GM PO (10:46)
[2021-05-09] MEDS: Omeprazole 40 MG CAPSULE.DR PO (10:46)
[2021-05-09 11:06] LABS: Glucose, Whole Blood 133 mg/dL (60-115)
--- NOTE | 2021-05-09 13:02 | P.PNIM_ITS ---
Subjective Subjective Date of Service: 05/09/21 Interval History: Patient was seen and evaluated this morning Laying in bed, complaining of epigastric pain Sodium dropped to 126 this morning complaining of pain and diarrhea Denies any fever, chills or shortness of breath No reported other overnight events. Systemic review: No fever, chills or weakness No chest pain, palpitation No shortness of breath or coughing Reporting epigastric abdominal pain, nausea or vomiting No urinary symptoms No any rash or wounds Physical Exam Vital Signs: Vital Signs: Last Vital Signs Temp 98 F 05/09/21 11:02 Pulse 86 05/09/21 11:21 Resp 20 05/09/21 11:02 BP 129/72 05/09/21 11:21 Pulse Ox 96 05/09/21 11:21 Body Mass Index 32.5 Const: Other: Constitutional : Alert, oriented, not in distress Neck : Normal inspection, Supple Cardiovascular : RRR, S1 S2, no lower extremity edema Respiratory : Good bilateral air entry, no crackles, wheezes or rhonchi Gastrointestinal: soft, lax, Normal bowel sounds, epigastric tenderness Skin : Warm, Dry Neurological : Alert & oriented x3, No focal deficit Objective Data Current Medications Generic Name Dose Route Start Last Admin Trade Name Freq PRN Reason Stop Dose Admin Acetaminophen 650 mg 05/09/21 00:15 05/09/21 07:37 Acetaminophen 325 Mg Tablet PO 650 mg Q6H PRN Administration Pain, Mild (Pain Scale 1-3) Al Hydroxide/Mg Hydroxide 30 ml 05/07/21 18:39 05/08/21 22:05 Magnesium Hydrox/Alum Hydrox 30 Ml Oral.Susp PO 30 ml Q4H PRN Administration Dyspepsia Albuterol Sulfate 2.5 mg 05/04/21 18:12 05/06/21 17:28 Albuterol Sulfate (0.083%) 2.5 Mg/3 Ml Vial.Neb INHALE 2.5 mg RQ4H PRN Administration Shortness of Breath/Wheezing Amlodipine Besylate 10 mg 05/03/21 11:00 05/09/21 07:38 Amlodipine Besylate 10 Mg Tablet PO 10 mg DAILY YUMIKO Administration Protocol Aspirin 81 mg 05/05/21 21:00 05/08/21 22:05 Aspirin Enteric Coated 81 Mg Tablet. PO 81 mg BEDTIME YUMIKO Administration Dextrose 25 gm 05/05/21 10:30 Dextrose 50 % 25 Gm/50 Ml Vial IVPUSH Q15M PRN per Hypoglycemia Standing Ord. Protocol Fluticasone Propionate 1 puff 05/05/21 20:00 05/09/21 08:29 Fluticasone Propionate 250 Mcg Blst.W.Dev INHALE 1 puff RBID YUMIKO Administration Folic Acid 1 mg 05/08/21 09:00 05/09/21 07:38 Folic Acid 1 Mg Tablet PO 1 mg DAILY YUMIKO Administration Furosemide 20 mg 05/09/21 09:00 05/09/21 10:46 Furosemide 20 Mg Tablet PO 20 mg DAILY YUMIKO Administration Protocol Glucose 15 gm 05/05/21 10:30 Glucose Gel 15 Gm Gel..Gram. PO Q15M PRN per Hypoglycemia Standing Ord. Protocol Guaifenesin 5 ml 05/06/21 18:24 Guaifenesin 100 Mg/5 Ml Liquid PO Q6H PRN cough Heparin Sodium (Porcine) 5,000 unit 05/01/21 22:00 05/09/21 06:47 Heparin Sodium,Porcine 5,000 Unit/Ml Vial SUBCUT 5,000 unit Q8H YUMIKO Administration Hydralazine HCl 25 mg 05/03/21 15:00 05/09/21 07:38 Hydralazine Hcl 25 Mg Tablet PO 25 mg TID YUMIKO Administration Protocol Insulin Human Lispro 0 unit 05/05/21 11:30 05/09/21 11:10 Insulin Lispro 100 Unit/Ml 3 Ml Vial SUBCUT Not Given QIDACHS [facility] Protocol Loperamide HCl 2 mg 05/09/21 12:58 Loperamide Hcl 2 Mg Capsule PO Q4H PRN Diarrhea Medication 1 each 05/02/21 09:00 No Benzodiazepines MISCELLANE DAILY [facility] Metoprolol Succinate 50 mg 05/06/21 09:00 05/09/21 07:38 Metoprolol Succinate Er 50 Mg Tab.Er.24h PO 50 mg DAILY YUMIKO Administration Protocol Montelukast Sodium 10 mg 05/05/21 21:00 05/08/21 22:02 Montelukast Sodium 10 Mg Tablet PO 10 mg BEDTIME YUMIKO Administration Omeprazole 40 mg 05/09/21 10:40 05/09/21 10:46 Omeprazole 40 Mg Capsule.Dr PO 40 mg DAILY@0630 YUMIKO Administration Ondansetron HCl 4 mg 05/03/21 08:21 05/07/21 17:54 Ondansetron Hcl 4 Mg/2 Ml Vial IVPUSH 4 mg Q6H PRN Administration Nausea Pharmacy Consult 1 each 05/05/21 09:32 Consult Rx Perform Med Rec MISCELLANE ONCE PRN Consult order Pravastatin Sodium 20 mg 05/05/21 21:00 05/08/21 22:06 Pravastatin Sodium 20 Mg Tablet PO 20 mg BEDTIME YUMIKO Administration Sodium Chloride 2 gm 05/08/21 21:00 05/09/21 07:38 Sodium Chloride Tab 1 Gm Tablet PO 2 gm TID YUMIKO Administration Sucralfate 1 gm 05/07/21 21:00 05/09/21 10:46 Sucralfate 1 Gm Tablet PO 1 gm QIDACHS YUMIKO Administration Thiamine HCl 100 mg 05/02/21 09:00 05/09/21 07:39 Thiamine Hcl 200 Mg/2 Ml Vial IVPUSH 100 mg BID YUMIKO Administration Labs CBC & Chem 7: 05/06/21 05:57 05/09/21 05:28 Labs: Laboratory Results - last 24 hr 05/08/21 05/08/21 05/08/21 12:20 16:04 20:29 Anion Gap 12 Estim Creat Clear Calc 58.5 Estimated GFR 59 POC Glucose 105 118 H Random Glucose 102 Calcium 8.7 05/09/21 05/09/21 05/09/21 05:28 07:19 11:03 Anion Gap 14 Estim Creat Clear Calc 64.0 Estimated GFR > 60 POC Glucose 105 133 H Random Glucose 109 Calcium 8.6 Assessment and Plan (1) Metabolic encephalopathy: Status: Acute (2) Acute hyponatremia: Status: Acute (3) Alcohol use disorder: Status: Acute Assessment and Plan: 65F presented with AMS found to have severe hyponatremia 103 and alcohol withdrawal. slowly corrected and given phenobarbital, now improved and downgraded 05/04/21. metabolic encephalopathy due to severe hyponatremia likely alchol related, possibly some SIADH, Hyponatremia Improved to 126 fluid restriction, gentle hydration Urea continue NaCl, monitor closely Nephrology following Diarrhea check Cdiff though less likely can use imodoim if cdiff negative alcohol dependence with withdrawal continue phenobarbital bipolar seroquel DM inuslin cad asa, statin moderate intermittent asthma flovent prn nebs Quality Stroke Does the patient have a stroke diagnosis?: No VTE Prior VTE?: No VTE Risk Level:: Medical - moderate - high VTE Device Contraindication: N/A - Device Ordered VTE Drug Contraindication: N/A - Med Ordered
[2021-05-09] MEDS: 0.9 % Sodium Chloride 1,000 ML 60 ML IVCONT (13:47)
[2021-05-09] MEDS: Loperamide HCl 2 MG CAPSULE PO (13:47)
--- NOTE | 2021-05-09 13:59 | MHC.CLN ---
F/U PO INTAKE REMAINS VARIABLE DIET RX: 2200DM 2GM NA 1000CC FR- APPROPRIATE NOTED SERUM NA 126 PT RECEIVING GLUCERNA BID AND MILTON TO PROMOTE WOUND HEALING SUPPLEMENT TO PROVIDE 634KCALS, 25G PROTEIN, 380CC FREE WATER FROM SUPPLEMENT FOR F.R. MONITOR PO INTAKE CLOSELY
[2021-05-09 16:02] LABS: Glucose, Whole Blood 134 mg/dL (60-115)
[2021-05-09 19:42] LABS: Glucose, Whole Blood 107 mg/dL (60-115)
[2021-05-09] MEDS: Montelukast Sodium 10 MG TABLET PO (20:18)
[2021-05-09] MEDS: Pravastatin Sodium 20 MG TABLET PO (20:19)
[2021-05-09] MEDS: Aspirin Enteric Coated 81 MG TABLET.DR PO (20:19)
[2021-05-10] MEDS: Acetaminophen 325 MG TABLET 650 MG PO ×2 (02:25→11:07)
[2021-05-10 03:10] VITALS: BP 134/62; PULSE 76; RESP 16; TEMP 36.2; O2SAT 99
[2021-05-10] MEDS: Omeprazole 40 MG CAPSULE.DR PO (04:52)
[2021-05-10] MEDS: 0.9 % Sodium Chloride 1,000 ML 60 ML IVCONT (04:52)
[2021-05-10] MEDS: Heparin Sodium,Porcine 5,000 UNIT/ML VIAL 5000 UNIT SUBCUT (04:53)
[2021-05-10 06:57] LABS: Anion Gap 15 (12-20); Blood Urea Nitrogen 36 mg/dL (9-16); Calcium 8.8 mg/dL (8.4-10.2); Carbon Dioxide 22 mmol/L (22-29); Chloride 97 mmol/L (96-108); Creatinine Clr Calc Pharmacy 61.2; Estimated Glomerular Filt Rate > 60; Glucose Random 98 mg/dL (60-115); Potassium 3.8 mmol/L (3.3-5.1); Sodium 130 mmol/L (135-145)
[2021-05-10 06:59] VITALS: BP 140/81; PULSE 86; RESP 18; TEMP 36.6; O2SAT 99
[2021-05-10 07:17] LABS: Glucose, Whole Blood 102 mg/dL (60-115)
[2021-05-10 07:46] VITALS: BP 140/81; PULSE 86
[2021-05-10] MEDS: Folic Acid 1 MG TABLET PO (07:46)
[2021-05-10] MEDS: Furosemide 20 MG TABLET PO (07:46)
[2021-05-10] MEDS: Sucralfate 1 GM TABLET PO ×2 (07:46→11:06)
[2021-05-10] MEDS: amLODIPine Besylate 10 MG TABLET PO (07:46)
[2021-05-10] MEDS: Sodium Chloride Tab 1 GM TABLET 2 GM PO (07:46)
[2021-05-10] MEDS: hydrALAZINE HCl 25 MG TABLET PO (07:46)
[2021-05-10 07:47] VITALS: BP 140/81; PULSE 86
[2021-05-10] MEDS: Thiamine HCL 200 MG/2 ML VIAL 100 MG IVPUSH (07:47)
[2021-05-10] MEDS: Metoprolol Succinate ER 50 MG TAB.ER.24H PO (07:47)
[2021-05-10] MEDS: Fluticasone Propionate 250 MCG BLST.W.DEV 1 PUFF INHALE (08:01)
[2021-05-10 08:03] VITALS: PULSE 86; O2SAT 99
--- NOTE | 2021-05-10 08:53 | MHC.RECOVSUP ---
Recovery Support note: Patient is a 66 year old Iranian speaking female who presented to [facility] ED after an unwitnessed fall and was medically admitted. This signwriter met with patient with [facility] train master to discuss her alcohol use and recovery supports. Patient denies that her alcohol use is problematic and was offended when this signwriter asked about her alcohol use. Patient reports she has a few beers but that she is not drinking excessive amounts of alcohol. This signwriter discussed with patient how alcohol use is detrimental to physical health and that as people get older, alcohol use has more of a negative effect. Patient acknowledged and continues to report that her alcohol use is problematic. Encouraged patient to reduce her consumption of alcohol and to consider stopping entirely to live a healthier lifestyle. Patient acknowledged. Patient reports she is not interested in hearing about community supports or treatment options for alcohol use. Patient became tearful when asking about discharge, stating that she wants to go home and that she doesn't know how she will get home. Reassured patient that case management is coordinating her discharge and that she does not need to worry about this.
--- NOTE | 2021-05-10 10:16 | MHC.CM.PN ---
Patient has been medically cleared for dc to home today, no services.CM addressed IMM with Patient providing her with the original and placing a copy on the chart. Patient is aware of the dc plan and very happy to be returning home today.
--- NOTE | 2021-05-10 10:48 | MHC.CM.PN ---
Patient will dc to home today at 1PM, via [facility]; Patient's /Juanjo is aware of this plan and will be home when Patient arrives.
[2021-05-10 10:58] LABS: Glucose, Whole Blood 128 mg/dL (60-115)
[2021-05-10 11:15] VITALS: BP 139/59; PULSE 70; RESP 18; TEMP 36.2; O2SAT 97
--- NOTE | 2021-05-10 11:44 | PM.DS ---
DS: Providers Provider Date of Service: 05/10/21 Date of admission: 05/01/21 19:38 Primary care physician: Ryder Monique MD Consults: 05/10/21 07:17 Consult to Care Team Routine Comment: Reason for consultation: Pending discharge, Alcohol abuse DS: Diagnosis Discharge Diagnosis (1) Metabolic encephalopathy: Status: Acute (2) Acute hyponatremia: Status: Acute (3) Alcohol use disorder: Status: Acute (4) Acute confusion: Status: Acute (5) Delirium tremens: Status: Acute (6) Encephalopathy: Status: Acute (7) SAGAR (acute kidney injury): Status: Acute DS: Medications Discharge Medications Home Medications: Home Medications Medication Instructions Recorded Confirmed albuterol sulfate 90 mcg/actuation 2 puff INHALATION Q4-6H PRN 08/18/20 05/05/21 aerosol inhaler (Ventolin HFA) aspirin 81 mg tablet,delayed 81 mg PO BEDTIME 08/18/20 05/05/21 release fluticasone propionate 220 1 puff INHALATION BID 08/18/20 05/05/21 mcg/actuation HFA aerosol inhaler (Flovent HFA) montelukast 10 mg tablet 10 mg PO QPM 08/18/20 05/05/21 baclofen 20 mg tablet 20 mg PO DAILY PRN 10/10/20 05/05/21 pravastatin 20 mg tablet 20 mg PO BEDTIME 10/10/20 05/05/21 metformin 500 mg tablet 500 mg PO DAILY@08 11/04/20 05/05/21 acetaminophen 650 mg 1 tab PO BID PRN 02/04/21 05/05/21 tablet,extended release folic acid 1 mg tablet 1 tab PO QAM 02/04/21 05/05/21 sennosides 8.6 mg tablet (senna) 1 tab PO BID PRN 02/04/21 05/05/21 thiamine HCl (vitamin B1) 100 mg 1 tab PO QAM 02/04/21 05/05/21 tablet citalopram 40 mg tablet 1 tab PO DAILY 05/05/21 05/05/21 Previous Rx's Medication Instructions Recorded furosemide 20 mg tablet (Lasix) 20 mg PO DAILY #30 tab 10/21/20 metoprolol succinate 50 mg 50 mg PO DAILY 30 Days #30 tab 11/08/20 tablet,extended release 24 hr amlodipine 10 mg tablet 10 mg PO DAILY 30 Days #30 tab 05/10/21 clonazepam 1 mg tablet 0.5 mg PO BID PRN #0 tab 05/10/21 hydralazine 25 mg tablet 25 mg PO TID 30 Days #90 tab 05/10/21 omeprazole 40 mg capsule,delayed 40 mg PO DAILY@0630 30 Days #30 cap 05/10/21 release quetiapine 50 mg tablet 25 mg PO BID #0 tab 05/10/21 sodium chloride 1 gram tablet 2 g PO TID 10 Days #60 tab 05/10/21 DS: Summary Hospital Course Hospital Course: Patient had prolonged hospital stay, for full details please returned to EMR. Admission note HPI This is a 65-year-old female? Lao-speaking only with a past medical history of congestive heart failure, COPD, DANO, CAD, diabetes, hypertension,? and ETOH abuse who presented to the emergency room? after a fall.? In the emergency patient?s vital signs were stable,? but laboratory data showed? sodium of 103.? Head CT/ Cervical spine/ Pelvis CT negative for acute findings. Initially patient was alert with no significant neural deficits while in the emergency room,? nephrology was consulted, Dr Adams? recommended starting normal saline at 100 mL/hr.? On my assessment of patient,? Patient is lethargic, only alert? to self with significant confusion noted.? Difficult complete neuro exam due to patient unable to follow commands. She is able to move all extremities spontaneously.? Due to significant neural deficits noted during my exam, the? patient qualifies for hypertonic solution. We will admit into the ICU for management and closely monitor of hyponatremia requiring hypertonic saline Hospital course Patient was admitted to the hospital with severe hyponatremia of 103 and alcohol withdrawal and altered mentation. Admitted to the ICU for the 1st 3 in eyes with correction slowly monitor with Nephrology team involvement in the ICU. Sodium improved gradually on a steady rate since admission with improvement of patient mental status. Treated primarily with fluid resuscitation and sodium replacement. was transferred out of the ICU to the medical floor to continue therapy with oral sodium tablets and fluid restrictions. Sodium reach 130 which is close to her normal baseline. Nephrology will continue to follow the patient in the clinic with plan to repeat labs this Wednesday. Treated with phenobarbital for alcohol dependence and alcohol abuse. Responded well and spoke with the care team who gave her outpatient resources. Patient is adamant at she will quit alcohol completely. Change clonazepam to 0.5 mg p.r.n. and decrease Seroquel to 25 mg b.i.d. Time Spent with Patient Time attestation: Total time spent providing and/or coordinating discharge services: Discharge coordination time: Greater than 30 minutes Quality: Stroke Does the patient have a stroke diagnosis?: No Physical Exam Vital Signs: Vital Signs: Last Vital Signs Temp 97.1 F 05/10/21 11:15 Pulse 70 05/10/21 11:15 Resp 18 05/10/21 11:15 BP 139/59 L 05/10/21 11:15 Pulse Ox 97 05/10/21 11:15 Body Mass Index 32.5 Const: Other: Constitutional : Alert, oriented, not in distress Neck : Normal inspection, Supple Cardiovascular : RRR, S1 S2, no lower extremity edema Respiratory : Good bilateral air entry, no crackles, wheezes or rhonchi Gastrointestinal: soft, lax, Normal bowel sounds, no tenderness Skin : Warm, Dry Neurological : Alert & oriented x3, No focal deficit DS: Data Data Completed and Pending Labs on day of discharge: Laboratory Results - last 24 hr 05/09/21 05/09/21 05/10/21 16:00 19:39 05:22 Sodium 130 L Potassium 3.8 Chloride 97 Carbon Dioxide 22 Anion Gap 15 BUN 36 H Creatinine 0.90 Estim Creat Clear Calc 61.2 Estimated GFR > 60 POC Glucose 134 H 107 Random Glucose 98 Calcium 8.8 05/10/21 05/10/21 06:58 10:53 Sodium Potassium Chloride Carbon Dioxide Anion Gap BUN Creatinine Estim Creat Clear Calc Estimated GFR POC Glucose 102 128 H Random Glucose Calcium Discharge Plan Discharge Patient Disposition: Home, Self-Care Discharge Diagnosis: Altered mentation Hyponatremia Alcohol withdrawal Referrals: Name,MD Ryder [Primary Care Provider] - 05/20/21 3:00 pm (You have a primary care follow up appointment on May 20 at 3:00 pm. Please call your doctor's office if you need to reschedule. ) Discharge Medications: New sodium chloride 1 gram Tablet 2 g PO TID 10 Days Qty: 60 RF: 0 hydralazine 25 mg Tablet 25 mg PO TID 30 Days Qty: 90 RF: 0 amlodipine 10 mg Tablet 10 mg PO DAILY 30 Days Qty: 30 RF: 0 omeprazole 40 mg Capsule,Delayed Release(Dr/Ec) 40 mg PO DAILY@0630 30 Days Qty: 30 RF: 0 Continued aspirin 81 mg tablet,delayed release (DR/EC) 81 mg PO BEDTIME RF: 0 montelukast 10 mg tablet 10 mg PO QPM RF: 0 Flovent HFA 220 mcg/actuation HFA aerosol inhaler 1 puff inhalation BID RF: 0 albuterol sulfate [Ventolin HFA] 90 mcg/actuation HFA aerosol inhaler 2 puff inhalation Q4-6H PRN (Reason: Shortness Of Breath Or Wheezing) RF: 0 baclofen 20 mg Tablet 20 mg PO DAILY PRN (Reason: Muscle Pain) RF: 0 pravastatin 20 mg Tablet 20 mg PO BEDTIME RF: 0 citalopram 40 mg tablet 1 tab PO DAILY RF: 0 metformin 500 mg tablet 500 mg PO DAILY@08 RF: 0 metoprolol succinate 50 mg Tablet Extended Release 24 Hr 50 mg PO DAILY 30 Days Qty: 30 RF: 0 sennosides [senna] 8.6 mg tablet 1 tab PO BID PRN (Reason: constipation) RF: 0 thiamine HCl (vitamin B1) 100 mg tablet 1 tab PO QAM RF: 0 acetaminophen 650 mg tablet extended release 1 tab PO BID PRN (Reason: pain) RF: 0 folic acid 1 mg tablet 1 tab PO QAM RF: 0 Changed clonazepam 1 mg Tablet 0.5 mg PO BID PRN (Reason: anxiety) Qty: 0 RF: 0 quetiapine 50 mg Tablet 25 mg PO BID Qty: 0 RF: 0 furosemide [Lasix] 20 mg tablet 10 mg PO DAILY Qty: 30 RF: 0 Discharge Orders: Discharge Order (Routine); Ordered 05/10/21 Ordered By: Bianca Burnham Diet: advance to usual diet and other Activity on Discharge: As tolerated Stand Alone Forms: Patient Portal Discharge page Other Ambulatory Orders: Basic Metabolic Panel (Routine) Timeframe: [id number] Facility: [facility] - Location: Laboratory Ordered By: Bianca Burnham Care Plan Goals: Read below Health Concerns: Read below Plan of Treatment: You were admitted to the hospital for evaluation of altered mentation. Found to have very low sodium level. To evaluated by microbiology professor who followed you during the hospital stay. Your sodium level improved gradually during the hospital stay. You were treated as well for alcohol withdrawal. We advise you complete abstinence from alcohol. Assessment: Decrease fluid intake to 1-1.5 L maximum a day. Continue sold tablets 3 times a day and to follow-up with microbiology professor in the clinic To repeat blood test on Wednesday Start amlodipine and hydralazine for blood pressure control Continue to monitor your blood pressure at home and reported readings to your PCP or microbiology professor Advise you complete abstinence from alcohol Change clonazepam to 0.5 mg p.r.n. and decrease Seroquel to 25 mg b.i.d.
--- NOTE | 2021-05-10 13:54 | PC.NURSE ---
Spoke with patient's who is unable to bring patient clothes or be present for discharge instructions due to not being able to obtain a ride.
== END 2021-05-10 13:56 | disposition home or self-care (01) | DRG 640 ==
LOC: HO.ED 18:13 → HO.ICU 19:56 → HO.IMC 05-05 11:11
PROVIDERS: Internal Medicine; Internal Medicine Nephrology; Internal Medicine Pulmonary Disease; Admitting Provider Registered Nurse Community Health; Emergency Provider Emergency Medicine; PCP Internal Medicine Geriatric Medicine; Visit Provider Student in an Organized Health Care Education/Training Program
DX: E87.1 Hypo-osmolality and hyponatremia (principal); G93.41 Metabolic encephalopathy; N17.9 Acute kidney failure, unspecified; F10.221 Alcohol dependence with intoxication delirium; F10.231 Alcohol dependence with withdrawal delirium; I11.0 Hypertensive heart disease with heart failure; I25.10 Atherosclerotic heart disease of native coronary artery without angina pectoris; I50.9 Heart failure, unspecified; J45.20 Mild intermittent asthma, uncomplicated; F31.9 Bipolar disorder, unspecified; E11.9 Type 2 diabetes mellitus without complications; Z20.822 Contact with and (suspected) exposure to COVID-19; F17.210 Nicotine dependence, cigarettes, uncomplicated; Z71.6 Tobacco abuse counseling; Z79.84 Long term (current) use of oral hypoglycemic drugs; Z79.899 Other long term (current) drug therapy
CPT/HCPCS: 0241U; 36415; 70450; 71045; 72125; 72170; 80048; 80051; 80053; 82040; 82077; 82803; 82947; 83735; 83930; 83935; 84100; 84295; 84300; 85025; 85027; 94664; 96360; 97110; 97116; 97162; 99285; 99291; C1758; J2270; J2405; J2560; J3411; J7131

== ENCOUNTER 2021-05-22 09:03 | Outpatient (REF) | payer MEDICARE, MEDICAID, SELFPAY ==
--- NOTE | ~2021-05-22 | XR_ITS ---
EXAMINATION: XR CHEST CLINICAL INFORMATION: Localized edema COMPARISON: 05/01/2021 TECHNIQUE: 2 views of the chest were obtained. FINDINGS: There is no evidence of acute parenchymal disease, pneumothorax, or pleural effusion. Heart normal size. No evidence of pulmonary edema. There is severe degenerative changes involving the right shoulder joint. XR/XR chest 2V IMPRESSION: No acute disease.
== END 2021-05-22 09:04 | disposition home or self-care (01) ==
LOC: HO.XRAY 09:03
PROVIDERS: Absent Provider Internal Medicine Geriatric Medicine; PCP Internal Medicine Geriatric Medicine; Visit Provider Emergency Medicine
DX: R60.0 Localized edema (principal)
CPT/HCPCS: 71046

== ENCOUNTER 2021-06-01 01:24 | Emergency (ER) | payer MEDICARE, MEDICAID, SELFPAY ==
--- NOTE | ~2021-06-01 | XR_ITS ---
EXAMINATION: XR SHOULDER, RIGHT CLINICAL INFORMATION: Pain COMPARISON: 04/05/2021 TECHNIQUE: Three views of the right shoulder. XR/XR shoulder RT min 2V FINDINGS/IMPRESSION: No acute fracture or dislocation. Severe glenohumeral arthrosis redemonstrated with prominent marginal osteophytes, subchondral sclerosis and subchondral cystic changes. Small marginal osteophytes along the acromioclavicular joint. Small subacromial enthesophyte.
[2021-06-01 01:46] VITALS: BP 126/57; BP 137/67; PULSE 69; PULSE 74; RESP 20; TEMP 37.2; O2SAT 98; BMI 39.6
--- NOTE | 2021-06-01 01:52 | ECG_ITS ---
Test Reason : RIGHT SHOULDER PAIN Blood Pressure : / mmHG Vent. Rate : 072 BPM Atrial Rate : 072 BPM P-R Int : 164 ms QRS Dur : 100 ms QT Int : 418 ms P-R-T Axes : 068 001 060 degrees QTc Int : 457 ms Normal sinus rhythm Nonspecific T wave abnormality Abnormal ECG When compared with ECG of 26-MAR-2021 04:26, Premature supraventricular complexes are no longer Present Referred By: La Fragoso Electronically Signed By:DAMARIS TUTTLE
--- NOTE | 2021-06-01 01:53 | ED.GENADULT ---
HPI - General Adult General Chief complaint: Extremity Injury, Upper Stated complaint: RIGHT SHOULDER PAIN Time Seen by Provider: 06/01/21 01:30 Source: patient and EMS Mode of arrival: EMS Limitations: no limitations History of Present Illness HPI narrative: Patient comes to emergency room complaining of right shoulder pain. Patient states that the the pain is in the posterior aspect of the right shoulder, worse when she lies on it. Patient denies chest pain, no shortness of breath. Related Data Home Medications Medication Instructions Recorded Confirmed albuterol sulfate 90 mcg/actuation 2 puff INHALATION Q4-6H PRN 08/18/20 05/05/21 aerosol inhaler (Ventolin HFA) aspirin 81 mg tablet,delayed 81 mg PO BEDTIME 08/18/20 05/05/21 release fluticasone propionate 220 1 puff INHALATION BID 08/18/20 05/05/21 mcg/actuation HFA aerosol inhaler (Flovent HFA) montelukast 10 mg tablet 10 mg PO QPM 08/18/20 05/05/21 baclofen 20 mg tablet 20 mg PO DAILY PRN 10/10/20 05/05/21 pravastatin 20 mg tablet 20 mg PO BEDTIME 10/10/20 05/05/21 metformin 500 mg tablet 500 mg PO DAILY@08 11/04/20 05/05/21 acetaminophen 650 mg 1 tab PO BID PRN 02/04/21 05/05/21 tablet,extended release folic acid 1 mg tablet 1 tab PO QAM 02/04/21 05/05/21 sennosides 8.6 mg tablet (senna) 1 tab PO BID PRN 02/04/21 05/05/21 thiamine HCl (vitamin B1) 100 mg 1 tab PO QAM 02/04/21 05/05/21 tablet citalopram 40 mg tablet 1 tab PO DAILY 05/05/21 05/05/21 Previous Rx's Medication Instructions Recorded metoprolol succinate 50 mg 50 mg PO DAILY 30 Days #30 tab 11/08/20 tablet,extended release 24 hr amlodipine 10 mg tablet 10 mg PO DAILY 30 Days #30 tab 05/10/21 clonazepam 1 mg tablet 0.5 mg PO BID PRN #0 tab 05/10/21 furosemide 20 mg tablet (Lasix) 10 mg PO DAILY #30 tab 05/10/21 hydralazine 25 mg tablet 25 mg PO TID 30 Days #90 tab 05/10/21 omeprazole 40 mg capsule,delayed 40 mg PO DAILY@0630 30 Days #30 cap 05/10/21 release quetiapine 50 mg tablet 25 mg PO BID #0 tab 05/10/21 sodium chloride 1 gram tablet 2 g PO TID 10 Days #60 tab 05/10/21 ibuprofen 600 mg tablet 600 mg PO TID PRN #10 tab 06/01/21 Allergies Allergy/AdvReac Type Severity Reaction Status Date / Time advair Allergy Unknown Unknown Uncoded 03/25/21 20:12 paxil Allergy Unknown Unknown Uncoded 02/12/21 20:38 From PAXIL AdvReac Intermediate NAUSEA & Uncoded 02/12/21 20:38 VOMITING Review of Systems Review of Systems: Constitutional : No Weight loss, No Fever, No Chills, No Night Sweats, No Fatigue, No Malaise ENT/Mouth : No Hearing loss, No Ear Pain, No Nasal Congestion, No Sinus Pain, No Hoarseness, No sore throat, No Rhinorrhea, No Swallowing Difficulty Eyes: No Eye Pain, No Swelling, No Redness, No Foreign Body, No Discharge, No Vision Changes Cardiovascular : No Chest Pain, No SOB, No Dyspnea on Exertion, No Orthopnea, No Edema, No Palpitations Respiratory : No Cough, No Sputum, No Wheezing, No Smoke Exposure, No Dyspnea Gastrointestinal : No Nausea, No Vomiting, No Diarrhea, No Constipation, No abdominal Pain, No Hematochezia, No Melena Genitourinary : no irregular bleeding, No Dysuria, No Urinary Frequency, No Hematuria, No Urinary Incontinence, No Urgency, No Flank Pain, No Urinary Flow Changes, No Hesitancy Musculoskeletal : Complaining of right shoulder pain posterior aspect, worse with putting pressure/laying over it. No Myalgias, No Joint Swelling Skin : No Skin Lesions, No rash Neuro : No Weakness, No Numbness, No Paresthesias, No Loss of Consciousness, No Dizziness, No Headache Psych : No Anxiety/Panic, No Depression, No SI/HI/AH/VH, No Social Issues, Heme/Lymph: No Bruising, No Bleeding,No Lymphadenopathy Endocrine : No Polyuria, No Polydipsia, No Temperature Intolerance PMFSH Past Medical History Medical History Acute hyponatremia Alcohol use disorder Bipolar 1 disorder Bipolar I disorder Chronic hyponatremia Congestive heart failure COPD (chronic obstructive pulmonary disease) Coronary artery disease Diabetes Hypertension Osteoarthritis Schizophrenia Sleep apnea Surgical History Hx of appendectomy Social History Social History Household Members: Unknown / Unable to assess Housing: Apartment Unable to assess alcohol history related to: Unknown Alcohol intake: unknown Patient Tobacco Use Status: Current everyday Tobacco user Tobacco use type: Cigarette Cigarettes Per Day: 5 Years Smoked: 52 e-Cigarette/Vaping Use: Currently Using Second Hand Smoke Exposure: No Substance Use Type: Marijuana Advance Directives: Yes Advance Directives Information Provided: Yes Advance Directives on File: Yes Advance Directives Date on File: 10/10/20 service: No Current occupational status: unemployed, disabled and other Physical Exam Vital Signs: Vital Signs: Last Vital Signs Temp 98.9 F 06/01/21 01:46 Pulse 74 06/01/21 02:25 Resp 16 06/01/21 02:25 BP 127/70 06/01/21 02:25 Pulse Ox 98 06/01/21 01:46 Body Mass Index 39.6 Const: Other: Appearance: Alert. Oriented X3. No acute distress. Eyes: Pupils equal, round and reactive to light. ENT: Pharynx normal. Neck: Normal inspection. Neck supple. No lymph nodes noted. No crepitus CVS: Normal heart rate and rhythm. Pulses normal. Normal S1 and S2 Respiratory: No respiratory distress. Breath sounds normal. No Wheezing. No rales Abdomen: Soft and nontender. No rigidity. No distention. Skin: Skin warm and dry. Normal skin color. Normal skin turgor. Extremities: No lower extremity edema. Complaining of right-sided shoulder pain posterior aspect, in between the posterior side of the shoulder and in between the scapula. Neuro: Oriented X 3. No motor deficit. No sensory deficit. Moving all extermities. No slurred speech. Course Course Course Narrative: I discussed the x-ray with the patient, she has severe changes, patient instructed to follow-up with her primary care physician, she may need an orthopedics follow-up appointment. Medical Decision Making Imaging Data Right shoulder x-ray: Radiologist's impression: FINDINGS/IMPRESSION: No acute fracture or dislocation. Severe glenohumeral arthrosis redemonstrated with prominent marginal osteophytes, subchondral sclerosis and subchondral cystic changes. Small marginal osteophytes along the acromioclavicular joint. Small subacromial enthesophyte. Discharge Plan Discharge Clinical Impression: Arthritis of shoulder Patient Disposition: Home, Self-Care Instructions: Osteoarthritis (ED) Additional Instructions: Please follow-up with your primary care physician tomorrow. If you have any worsening or new symptoms, please return to the emergency room or call 911 Prescriptions: New ibuprofen 600 mg tablet 600 mg PO TID PRN (Reason: pain) Qty: 10 RF: 0 No Action aspirin 81 mg tablet,delayed release (DR/EC) 81 mg PO BEDTIME RF: 0 montelukast 10 mg tablet 10 mg PO QPM RF: 0 Flovent HFA 220 mcg/actuation HFA aerosol inhaler 1 puff inhalation BID RF: 0 albuterol sulfate [Ventolin HFA] 90 mcg/actuation HFA aerosol inhaler 2 puff inhalation Q4-6H PRN (Reason: Shortness Of Breath Or Wheezing) RF: 0 baclofen 20 mg Tablet 20 mg PO DAILY PRN (Reason: Muscle Pain) RF: 0 pravastatin 20 mg Tablet 20 mg PO BEDTIME RF: 0 citalopram 40 mg tablet 1 tab PO DAILY RF: 0 sodium chloride 1 gram Tablet 2 g PO TID 10 Days Qty: 60 RF: 0 hydralazine 25 mg Tablet 25 mg PO TID 30 Days Qty: 90 RF: 0 amlodipine 10 mg Tablet 10 mg PO DAILY 30 Days Qty: 30 RF: 0 omeprazole 40 mg Capsule,Delayed Release(Dr/Ec) 40 mg PO DAILY@0630 30 Days Qty: 30 RF: 0 clonazepam 1 mg Tablet 0.5 mg PO BID PRN (Reason: anxiety) Qty: 0 RF: 0 quetiapine 50 mg Tablet 25 mg PO BID Qty: 0 RF: 0 furosemide [Lasix] 20 mg tablet 10 mg PO DAILY Qty: 30 RF: 0 metformin 500 mg tablet 500 mg PO DAILY@08 RF: 0 metoprolol succinate 50 mg Tablet Extended Release 24 Hr 50 mg PO DAILY 30 Days Qty: 30 RF: 0 sennosides [senna] 8.6 mg tablet 1 tab PO BID PRN (Reason: constipation) RF: 0 thiamine HCl (vitamin B1) 100 mg tablet 1 tab PO QAM RF: 0 acetaminophen 650 mg tablet extended release 1 tab PO BID PRN (Reason: pain) RF: 0 folic acid 1 mg tablet 1 tab PO QAM RF: 0
[2021-06-01 02:25] VITALS: BP 127/70; PULSE 74; RESP 16
== END 2021-06-01 05:35 | disposition home or self-care (01) ==
PROVIDERS: Emergency Provider Emergency Medicine
DX: M19.011 Primary osteoarthritis, right shoulder (principal); M25.511 Pain in right shoulder; F17.210 Nicotine dependence, cigarettes, uncomplicated; Z71.6 Tobacco abuse counseling; Z79.899 Other long term (current) drug therapy; Z79.82 Long term (current) use of aspirin
CPT/HCPCS: 73030; 93005; 99284

== ENCOUNTER 2021-06-11 16:28 | Emergency (ER) | payer MEDICARE, MEDICAID, SELFPAY ==
[2021-06-11 17:11] VITALS: BP 121/51; PULSE 68; RESP 18; TEMP 36.7; O2SAT 97; BMI 27.4
--- NOTE | 2021-06-11 17:18 | ED.GENADULT ---
HPI - General Adult General Chief complaint: Nausea/Vomiting/Diarrhea Stated complaint: DIARRHEA Time Seen by Provider: 06/11/21 17:09 Source: patient, EMS and or first assist registered nurse Limitations: other (Dementia) History of Present Illness HPI narrative: Patient presents via EMS from home. Apparently her called and told EMS that she has been having black diarrhea. The patient herself denies this and says she had 1 episode last week but none since. She denies any nausea vomiting or abdominal pain or other symptoms. She denies taking aspirin which is on her med list. She also denies taking omeprazole which is also on her medication list. The patient self denies all other complaints and states she would like to go home. She apparently has a history of dementia Related Data Home Medications Medication Instructions Recorded Confirmed albuterol sulfate 90 mcg/actuation 2 puff INHALATION Q4-6H PRN 08/18/20 05/05/21 aerosol inhaler (Ventolin HFA) aspirin 81 mg tablet,delayed 81 mg PO BEDTIME 08/18/20 05/05/21 release fluticasone propionate 220 1 puff INHALATION BID 08/18/20 05/05/21 mcg/actuation HFA aerosol inhaler (Flovent HFA) montelukast 10 mg tablet 10 mg PO QPM 08/18/20 05/05/21 baclofen 20 mg tablet 20 mg PO DAILY PRN 10/10/20 05/05/21 pravastatin 20 mg tablet 20 mg PO BEDTIME 10/10/20 05/05/21 metformin 500 mg tablet 500 mg PO DAILY@08 11/04/20 05/05/21 acetaminophen 650 mg 1 tab PO BID PRN 02/04/21 05/05/21 tablet,extended release folic acid 1 mg tablet 1 tab PO QAM 02/04/21 05/05/21 sennosides 8.6 mg tablet (senna) 1 tab PO BID PRN 02/04/21 05/05/21 thiamine HCl (vitamin B1) 100 mg 1 tab PO QAM 02/04/21 05/05/21 tablet citalopram 40 mg tablet 1 tab PO DAILY 05/05/21 05/05/21 Previous Rx's Medication Instructions Recorded metoprolol succinate 50 mg 50 mg PO DAILY 30 Days #30 tab 11/08/20 tablet,extended release 24 hr amlodipine 10 mg tablet 10 mg PO DAILY 30 Days #30 tab 05/10/21 clonazepam 1 mg tablet 0.5 mg PO BID PRN #0 tab 05/10/21 furosemide 20 mg tablet (Lasix) 10 mg PO DAILY #30 tab 05/10/21 hydralazine 25 mg tablet 25 mg PO TID 30 Days #90 tab 05/10/21 omeprazole 40 mg capsule,delayed 40 mg PO DAILY@0630 30 Days #30 cap 05/10/21 release quetiapine 50 mg tablet 25 mg PO BID #0 tab 05/10/21 sodium chloride 1 gram tablet 2 g PO TID 10 Days #60 tab 05/10/21 ibuprofen 600 mg tablet 600 mg PO TID PRN #10 tab 06/01/21 Allergies Allergy/AdvReac Type Severity Reaction Status Date / Time advair Allergy Unknown Unknown Uncoded 03/25/21 20:12 paxil Allergy Unknown Unknown Uncoded 02/12/21 20:38 From PAXIL AdvReac Intermediate NAUSEA & Uncoded 02/12/21 20:38 VOMITING Review of Systems Review of Systems: Patient denies all complaints but specifically listed questions are outlined below Constitutional: Constitutional: Denies body ache(s) and Denies malaise Cardiovascular: Cardiovascular: Denies chest pain and Denies dyspnea Respiratory: Respiratory: Denies dyspnea Gastrointestinal: Gastrointestinal: Denies abdominal pain, Denies belching, Denies melena, Denies bloating, Denies hematochezia, Denies change in bowel habits and Denies diarrhea Neurologic: Comments: Denies weakness PMFSH Past Medical History Medical History Acute hyponatremia Alcohol use disorder Bipolar 1 disorder Bipolar I disorder Chronic hyponatremia Congestive heart failure COPD (chronic obstructive pulmonary disease) Coronary artery disease Diabetes Hypertension Osteoarthritis Schizophrenia Sleep apnea Surgical History Hx of appendectomy Social History Social History Household Members: Unknown / Unable to assess Housing: Apartment Unable to assess alcohol history related to: Unknown Alcohol intake: never Patient Tobacco Use Status: Current everyday Tobacco user Tobacco use type: Cigarette Cigarettes Per Day: 5 Years Smoked: 52 e-Cigarette/Vaping Use: Currently Using Second Hand Smoke Exposure: No Use of substances other than those prescribed or required for medical reasons: Yes Substance Use Type: Marijuana Substance Use Frequency: Daily Advance Directives: No Advance Directives Information Provided: No Advance Directives Date on File: 10/10/20 service: No Current occupational status: unemployed, disabled and other Physical Exam Vital Signs: Vital Signs: Last Vital Signs Temp 98.1 F 06/11/21 17:11 Pulse 68 06/11/21 17:11 Resp 18 06/11/21 17:11 BP 121/51 L 06/11/21 17:11 Pulse Ox 97 06/11/21 17:11 Body Mass Index 27.4 Const: General: healthy appearing and no acute distress; No diaphoretic Resp: Other: Clear and equal bilaterally without wheezes rales or rhonchi Cardio: Other: Regular rate and rhythm GI: Other: Soft nontender nondistended Skin: Other: Warm pink and dry without diaphoresis Neuro: Other: Awake and alert. No focal deficits noted. Patient does appear somewhat confused to specific details of her history Course Course Course Narrative: GI bleed Diarrhea Confusion Dementia 5:29 p.m.. I attempted to call her significant other, Juanjo, and left a message with the or first assist registered nurse. Will order labs to rule out GI bleeding. At this point will hold off on rectal exam as patient is reluctant 7:22 p.m.. 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 Hemoglobin is 9.1. Urinalysis is normal. Vital signs are stable. She is shows no evidence of GI bleeding here in the emergency department. Sodium is 124. This is about average for this patient. Will defer rectal exam given these findings and patient preferences. Treat with Protonix p.o.. She is stable for discharge home Medical Decision Making Lab Data Result diagrams: 06/11/21 18:48 06/11/21 18:48 Labs: Lab Results 06/11/21 06/11/21 06/11/21 Range/Units 18:44 18:48 18:48 WBC 3.8 L (4.8-10.8) X10*3/uL RBC 2.87 L (4.20-5.50) X10*6/uL Hgb 9.1 L (12.0-16.0) g/dl Hct 25.9 L (37-47) % MCV 90.2 (80-98) fL MCH 31.7 (27.0-33.0) pg MCHC 35.1 H (31.0-35.0) g/dl RDW 13.5 (11.0-16.0) % Plt Count 269 (160-400) X10*3/uL MPV 8.3 L (9.4-12.3) fL Immature Gran % (Auto) 0.5 H (0.0-0.4) % Neut % (Auto) 56.1 (45-73) % Lymph % (Auto) 25.9 (20-40) % [place] % (Auto) 16.4 H (2-11) % Eos % (Auto) 0.8 (0-4) % Baso % (Auto) 0.3 (0-2) % Lymph # (Auto) 1.0 L (1.2-4.9) X10*3/uL [place] # (Auto) 0.6 (0.1-1.2) X10*3/uL Eos # (Auto) 0.0 (0.0-0.4) X10*3/uL Baso # (Auto) 0.0 (0.0-0.2) X10*3/uL Abs Immat Gran (auto) 0.02 (0.00-0.03) X10*3/uL Absolute Neuts (auto) 2.1 (2.0-8.3) X10*3/uL Absolute Nucleated RBC 0.000 (0.0-0.012) X10*3/uL Nucleated RBC % (auto) 0.0 (0.0-0.2) /100WBC Sodium (135-145) mmol/L Potassium (3.3-5.1) mmol/L Chloride (96-108) mmol/L Carbon Dioxide (22-29) mmol/L Anion Gap (12-20) BUN (9-16) mg/dL Creatinine (0.5-1.4) mg/dL Estim Creat Clear Calc Estimated GFR Random Glucose (60-115) mg/dL Calcium (8.4-10.2) mg/dL Total Bilirubin (0.0-1.0) mg/dL AST (5-31) U/L ALT (0-31) U/L Alkaline Phosphatase (39-117) U/L Ammonia 27 (13-55) umol/L Total Protein (6.5-8.0) g/dL Albumin (3.5-5.0) g/dL Urine Color YELLOW Urine Appearance CLEAR Urine pH 5.5 (5.0-8.0) Ur Specific [place] <= 1.005 (1.005-1.025) Urine Protein NEG (NEG-TRACE) MG/DL Urine Glucose (UA) NEG (NEG) MG/DL Urine Ketones NEG (NEG) MG/DL Urine Blood TRACE (NEG) Urine Nitrite POS H (NEG) Ur Leukocyte Esterase 1+ H (NEG) Urine RBC 0-2 (0) /HPF Urine WBC 1-4 (0-4) /HPF Ur Squamous Epith Cells 1+ /LPF Urine Bacteria 3+ /LPF 06/11/21 Range/Units 18:48 WBC (4.8-10.8) X10*3/uL RBC (4.20-5.50) X10*6/uL Hgb (12.0-16.0) g/dl Hct (37-47) % MCV (80-98) fL MCH (27.0-33.0) pg MCHC (31.0-35.0) g/dl RDW (11.0-16.0) % Plt Count (160-400) X10*3/uL MPV (9.4-12.3) fL Immature Gran % (Auto) (0.0-0.4) % Neut % (Auto) (45-73) % Lymph % (Auto) (20-40) % [place] % (Auto) (2-11) % Eos % (Auto) (0-4) % Baso % (Auto) (0-2) % Lymph # (Auto) (1.2-4.9) X10*3/uL [place] # (Auto) (0.1-1.2) X10*3/uL Eos # (Auto) (0.0-0.4) X10*3/uL Baso # (Auto) (0.0-0.2) X10*3/uL Abs Immat Gran (auto) (0.00-0.03) X10*3/uL Absolute Neuts (auto) (2.0-8.3) X10*3/uL Absolute Nucleated RBC (0.0-0.012) X10*3/uL Nucleated RBC % (auto) (0.0-0.2) /100WBC Sodium 124 L (135-145) mmol/L Potassium 4.4 (3.3-5.1) mmol/L Chloride 96 (96-108) mmol/L Carbon Dioxide 22 (22-29) mmol/L Anion Gap 10 L (12-20) BUN 8 L D (9-16) mg/dL Creatinine 1.10 (0.5-1.4) mg/dL Estim Creat Clear Calc 47.8 Estimated GFR 49 Random Glucose 82 (60-115) mg/dL Calcium 8.3 L (8.4-10.2) mg/dL Total Bilirubin 0.4 (0.0-1.0) mg/dL AST 17 (5-31) U/L ALT 8 (0-31) U/L Alkaline Phosphatase 72 (39-117) U/L Ammonia (13-55) umol/L Total Protein 5.7 L (6.5-8.0) g/dL Albumin 3.3 L (3.5-5.0) g/dL Urine Color Urine Appearance Urine pH (5.0-8.0) Ur Specific [place] (1.005-1.025) Urine Protein (NEG-TRACE) MG/DL Urine Glucose (UA) (NEG) MG/DL Urine Ketones (NEG) MG/DL Urine Blood (NEG) Urine Nitrite (NEG) Ur Leukocyte Esterase (NEG) Urine RBC (0) /HPF Urine WBC (0-4) /HPF Ur Squamous Epith Cells /LPF Urine Bacteria /LPF Discharge Plan Discharge Clinical Impression: Acute confusion, Korsakoff disease Patient Disposition: Home, Self-Care Instructions: Lightheadedness (ED) Prescriptions: No Action aspirin 81 mg tablet,delayed release (DR/EC) 81 mg PO BEDTIME RF: 0 montelukast 10 mg tablet 10 mg PO QPM RF: 0 Flovent HFA 220 mcg/actuation HFA aerosol inhaler 1 puff inhalation BID RF: 0 albuterol sulfate [Ventolin HFA] 90 mcg/actuation HFA aerosol inhaler 2 puff inhalation Q4-6H PRN (Reason: Shortness Of Breath Or Wheezing) RF: 0 baclofen 20 mg Tablet 20 mg PO DAILY PRN (Reason: Muscle Pain) RF: 0 pravastatin 20 mg Tablet 20 mg PO BEDTIME RF: 0 citalopram 40 mg tablet 1 tab PO DAILY RF: 0 sodium chloride 1 gram Tablet 2 g PO TID 10 Days Qty: 60 RF: 0 hydralazine 25 mg Tablet 25 mg PO TID 30 Days Qty: 90 RF: 0 amlodipine 10 mg Tablet 10 mg PO DAILY 30 Days Qty: 30 RF: 0 omeprazole 40 mg Capsule,Delayed Release(Dr/Ec) 40 mg PO DAILY@0630 30 Days Qty: 30 RF: 0 clonazepam 1 mg Tablet 0.5 mg PO BID PRN (Reason: anxiety) Qty: 0 RF: 0 quetiapine 50 mg Tablet 25 mg PO BID Qty: 0 RF: 0 furosemide [Lasix] 20 mg tablet 10 mg PO DAILY Qty: 30 RF: 0 ibuprofen 600 mg tablet 600 mg PO TID PRN (Reason: pain) Qty: 10 RF: 0 metformin 500 mg tablet 500 mg PO DAILY@08 RF: 0 metoprolol succinate 50 mg Tablet Extended Release 24 Hr 50 mg PO DAILY 30 Days Qty: 30 RF: 0 sennosides [senna] 8.6 mg tablet 1 tab PO BID PRN (Reason: constipation) RF: 0 thiamine HCl (vitamin B1) 100 mg tablet 1 tab PO QAM RF: 0 acetaminophen 650 mg tablet extended release 1 tab PO BID PRN (Reason: pain) RF: 0 folic acid 1 mg tablet 1 tab PO QAM RF: 0
[2021-06-11 18:57] LABS: MANUAL DIFF FLAG NO
[2021-06-11 18:58] LABS: Appearance Urine CLEAR; Color Urine YELLOW; Glucose Urine UA NEG (NEG); Leukocyte Esterase Urine 1+ (NEG); Nitrite Urine POS (NEG); PH 5.5 (5.0-8.0); Specific Gravity - Urine <= 1.005 (1.005-1.025); UACC Culture Trigger YES; Urine Blood TRACE (NEG); Urine Ketones NEG (NEG); Urine Protein NEG (NEG-TRACE)
[2021-06-11 19:01] LABS: Basophils Percent Auto 0.3 % (0-2); Eosinophils Percent Auto 0.8 % (0-4); Mean Platelet Volume 8.3 fL (9.4-12.3)
[2021-06-11 19:04] LABS: Ammonia 27 umol/L (13-55)
[2021-06-11 19:05] LABS: Hematocrit 25.9 % (37-47); Hemoglobin 9.1 g/dl (12.0-16.0); Imm Gran Abs Auto 0.02 X10*3/uL (0.00-0.03); Imm Gran Pct Auto 0.5 % (0.0-0.4); Lymphocytes Percent Auto 25.9 % (20-40); Mean Corpuscular HGB Conc 35.1 g/dl (31.0-35.0); Mean Corpuscular Hemoglobin 31.7 pg (27.0-33.0); Mean Corpuscular Volume 90.2 fL (80-98); Monocytes Absolute Auto 0.6 X10*3/uL (0.1-1.2); Monocytes Percent Auto 16.4 % (2-11); Neutrophils Absolute Auto 2.1 X10*3/uL (2.0-8.3); Neutrophils Percent Auto 56.1 % (45-73); Platelet Count 269 X10*3/uL (160-400); Red Blood Count 2.87 X10*6/uL (4.20-5.50); Red Cell Distribution Width 13.5 % (11.0-16.0); White Blood Count 3.8 X10*3/uL (4.8-10.8)
[2021-06-11 19:09] LABS: Bacteria Urine 3+ /LPF; RBC Urine 0-2 /HPF (0); Squamous Epithelial Cell Urine 1+ /LPF
[2021-06-11 19:44] LABS: Alanine Aminotransferase 8 U/L (0-31); Albumin Level 3.3 g/dL (3.5-5.0); Alkaline Phosphatase 72 U/L (39-117); Anion Gap 10 (12-20); Aspartate Amino Transferase 17 U/L (5-31); Bilirubin Total 0.4 mg/dL (0.0-1.0); Blood Urea Nitrogen 8 mg/dL (9-16); Calcium 8.3 mg/dL (8.4-10.2); Carbon Dioxide 22 mmol/L (22-29); Chloride 96 mmol/L (96-108); Creatinine Clr Calc Pharmacy 47.8; Estimated Glomerular Filt Rate 49; Glucose Random 82 mg/dL (60-115); Potassium 4.4 mmol/L (3.3-5.1); Sodium 124 mmol/L (135-145); Total Protein 5.7 g/dL (6.5-8.0)
[2021-06-11] MEDS: Omeprazole 40 MG CAPSULE.DR PO (19:50)
--- NOTE | 2021-06-11 20:38 | PC.NURSE ---
Spoke with significant other about patient coming home tonight. Aware of patient being discharged.
== END 2021-06-11 21:16 | disposition home or self-care (01) ==
PROVIDERS: Emergency Provider Emergency Medicine
DX: F04 Amnestic disorder due to known physiological condition (principal); R11.2 Nausea with vomiting, unspecified; R19.7 Diarrhea, unspecified; F44.89 Other dissociative and conversion disorders; F17.210 Nicotine dependence, cigarettes, uncomplicated; Z79.899 Other long term (current) drug therapy; Z71.6 Tobacco abuse counseling
CPT/HCPCS: 36415; 80053; 81001; 82140; 85025; 87086; 87088; 87186; 99283; 99284

== ENCOUNTER 2021-07-03 00:58 | Emergency (ER) | payer MEDICARE, MEDICAID, SELFPAY ==
[2021-07-03 01:06] VITALS: BP 113/62; PULSE 90; RESP 18; O2SAT 97; BMI 39.1
--- NOTE | 2021-07-03 02:34 | PC.NURSE ---
RN CALLED TO WAITING ROOM, PT ON FLOOR AFTER HAVING LOWERED HERSELF ON TO HER LEFT SIDE FROM SLEEPING ON THE COUCH IN THE WAITING ROOM. RN WATCHED VIDEO W/SECURITY, PT APPEARED TO PURPOSEFULLY ROLL OFF OF THE COUCH. NO INJURY, NO HEAD STRIKE, NO LOC. PT ASSISTED BACK TO WHEELCHAIR
[2021-07-03 03:19] VITALS: BP 122/64; PULSE 89; RESP 18; TEMP 36.6; O2SAT 97
--- NOTE | 2021-07-03 06:18 | ED_ITS ---
HPI - Extremity Problem General Chief complaint: Extremity Injury, Upper Stated complaint: wrist pain Time Seen by Provider: 07/03/21 06:10 Source: patient Mode of arrival: EMS Limitations: no limitations History of Present Illness HPI Narrative: 66-year-old female who is brought to the emergency department by ambulance for evaluation of pain in her left wrist. The patient states that she developed pain in her left wrist at 7:00 p.m. yesterday. She denies any injury or trauma. She states the pain is worse with movement. She is also complaining of pain in her right elbow, she denies any injury. She denied fever, chills, chest pain, shortness of breath. Related Data Home Medications Medication Instructions Recorded Confirmed albuterol sulfate 90 mcg/actuation 2 puff INHALATION Q4-6H PRN 08/18/20 05/05/21 aerosol inhaler (Ventolin HFA) aspirin 81 mg tablet,delayed 81 mg PO BEDTIME 08/18/20 05/05/21 release fluticasone propionate 220 1 puff INHALATION BID 08/18/20 05/05/21 mcg/actuation HFA aerosol inhaler (Flovent HFA) montelukast 10 mg tablet 10 mg PO QPM 08/18/20 05/05/21 baclofen 20 mg tablet 20 mg PO DAILY PRN 10/10/20 05/05/21 pravastatin 20 mg tablet 20 mg PO BEDTIME 10/10/20 05/05/21 metformin 500 mg tablet 500 mg PO DAILY@08 11/04/20 05/05/21 acetaminophen 650 mg 1 tab PO BID PRN 02/04/21 05/05/21 tablet,extended release folic acid 1 mg tablet 1 tab PO QAM 02/04/21 05/05/21 sennosides 8.6 mg tablet (senna) 1 tab PO BID PRN 02/04/21 05/05/21 thiamine HCl (vitamin B1) 100 mg 1 tab PO QAM 02/04/21 05/05/21 tablet citalopram 40 mg tablet 1 tab PO DAILY 05/05/21 05/05/21 Previous Rx's Medication Instructions Recorded metoprolol succinate 50 mg 50 mg PO DAILY 30 Days #30 tab 11/08/20 tablet,extended release 24 hr amlodipine 10 mg tablet 10 mg PO DAILY 30 Days #30 tab 05/10/21 clonazepam 1 mg tablet 0.5 mg PO BID PRN #0 tab 05/10/21 furosemide 20 mg tablet (Lasix) 10 mg PO DAILY #30 tab 05/10/21 hydralazine 25 mg tablet 25 mg PO TID 30 Days #90 tab 05/10/21 omeprazole 40 mg capsule,delayed 40 mg PO DAILY@0630 30 Days #30 cap 05/10/21 release quetiapine 50 mg tablet 25 mg PO BID #0 tab 05/10/21 sodium chloride 1 gram tablet 2 g PO TID 10 Days #60 tab 05/10/21 ibuprofen 600 mg tablet 600 mg PO TID PRN #10 tab 06/01/21 nitrofurantoin 100 mg PO BID 7 Days #14 cap 06/16/21 monohydrate/macrocrystals 100 mg capsule (Macrobid) prednisone 20 mg tablet 40 mg PO DAILY 5 Days #10 tab 07/03/21 Allergies Allergy/AdvReac Type Severity Reaction Status Date / Time advair Allergy Unknown Unknown Uncoded 03/25/21 20:12 paxil Allergy Unknown Unknown Uncoded 02/12/21 20:38 From PAXIL AdvReac Intermediate NAUSEA & Uncoded 02/12/21 20:38 VOMITING Review of Systems Review of Systems: Yes all other systems are reviewed and are negative [facility] Past Medical History [facility] Narrative: Social history: She denies tobacco, alcohol and drug use. Medical History Acute hyponatremia Alcohol use disorder Bipolar 1 disorder Bipolar I disorder Chronic hyponatremia Congestive heart failure COPD (chronic obstructive pulmonary disease) Coronary artery disease Diabetes Hypertension Osteoarthritis Schizophrenia Sleep apnea Surgical History Hx of appendectomy Social History Social History Household Members: Unknown / Unable to assess Housing: Apartment Unable to assess alcohol history related to: Unknown Alcohol intake: never Patient Tobacco Use Status: Current everyday Tobacco user Tobacco use type: Cigarette Cigarettes Per Day: 5 Years Smoked: 52 e-Cigarette/Vaping Use: Currently Using Second Hand Smoke Exposure: No Substance Use Type: Marijuana Advance Directives: Yes Advance Directives on File: Yes Advance Directives Date on File: 10/10/20 service: No Current occupational status: unemployed, disabled and other Physical Exam Vital Signs: Vital Signs: Last Vital Signs Temp 98 F 07/03/21 03:19 Pulse 89 07/03/21 03:19 Resp 18 07/03/21 03:19 BP 122/64 07/03/21 03:19 Pulse Ox 97 07/03/21 03:19 Body Mass Index 39.1 Const: Other: Awake, alert, chronically ill-appearing female patient, she does not appear to be in distress. HENMT: Head: Yes normal to inspection, Yes normocephalic and Yes atraumatic Ears: external ears normal General nose exam: Normal external nose present Face and sinus: Yes normal facial exam Mouth: Normal oral and palatal mucosa present Throat: Yes posterior oropharynx normal Eyes: Other: The patient's sclera are icteric, pupils are equal round reactive to light Pupils: Equal, round and reactive pupils present Neck: Neck: Yes normal visual inspection, Yes no lymphadenopathy, Yes trachea midline and Yes supple Chest: Chest palpation & inspection: normal inspection of the chest and normal palpation of entire chest wall Resp: Effort & Inspection: normal respiratory effort and able to speak in complete sentences Auscultation: clear to auscultation bilaterally Cardio: Rate: regular rate Rhythm: regular rhythm Heart sounds: S1 normal heart sound present, S2 normal heart sound present and no murmurs GI: Inspection: Yes normal to inspection Palpation (GI): Soft to palpation, nontender and no guarding Auscultation: normal bowel sounds : General: Yes no CVA tenderness Back/Spine/Pelvis: Back: no CVA tenderness Skin: General skin exam: no rashes or lesions noted Neuro: Cranial nerves: Yes CN's II-XII intact bilaterally and Yes Equal, round and reactive pupils present Cognition (Neuro): normal cognition Motor exam (neuro): 5/5 motor strength present throughout Extrem: Other: The patient does have swelling of the dorsal aspect of the left hand and left wrist, there is some slight increased warmth of these 2 areas with slight erythema. The patient has significant tenderness with palpation of her wrist joint and her MCP joints. The patient has no increased warmth or swelling of the right elbow, there is tenderness with palpation of the right elbow. Psych: Appearance: grossly normal Affect: normal affect Attitude: cooperative Course Course Course Narrative: 66-year-old female who presents emergency department for evaluation of a traumatic the pain of her left wrist and hand as well as a traumatic pain of her right elbow. She does have tenderness palpation of her right elbow. The patient's left hand and wrist examination is consistent with an inflammatory arthritis, I suspect that the patient has gout. The patient was given prednisone 40 mg orally. She will be started on prednisone 40 mg once a day for 5 days for gout. She was also given a Velcro wrist splint to help with pain. The patient was discharged home Discharge Plan Discharge Clinical Impression: Gout attack Patient Disposition: Home, Self-Care Instructions: Gout (ED) Additional Instructions: You have redness and swelling of your right hand and right wrist. I believe that this is caused by gout. You received prednisone 40 mg orally, this is an anti inflammatory medication and should reduce the inflammation caused by gout. Keep the wrist splint done for 3 days, you can take it off as needed. This splint is to help with your pain in 1 sure pain is better you can take the splint off. Follow-up with your doctor in 2 days. Please return to the emergency department if your symptoms get worse or if you develop any symptoms that are concerning to you. Prescriptions: New prednisone 20 mg tablet 40 mg PO DAILY 5 Days Qty: 10 RF: 0 No Action aspirin 81 mg tablet,delayed release (DR/EC) 81 mg PO BEDTIME RF: 0 montelukast 10 mg tablet 10 mg PO QPM RF: 0 Flovent HFA 220 mcg/actuation HFA aerosol inhaler 1 puff inhalation BID RF: 0 albuterol sulfate [Ventolin HFA] 90 mcg/actuation HFA aerosol inhaler 2 puff inhalation Q4-6H PRN (Reason: Shortness Of Breath Or Wheezing) RF: 0 baclofen 20 mg Tablet 20 mg PO DAILY PRN (Reason: Muscle Pain) RF: 0 pravastatin 20 mg Tablet 20 mg PO BEDTIME RF: 0 citalopram 40 mg tablet 1 tab PO DAILY RF: 0 sodium chloride 1 gram Tablet 2 g PO TID 10 Days Qty: 60 RF: 0 hydralazine 25 mg Tablet 25 mg PO TID 30 Days Qty: 90 RF: 0 amlodipine 10 mg Tablet 10 mg PO DAILY 30 Days Qty: 30 RF: 0 omeprazole 40 mg Capsule,Delayed Release(Dr/Ec) 40 mg PO DAILY@0630 30 Days Qty: 30 RF: 0 clonazepam 1 mg Tablet 0.5 mg PO BID PRN (Reason: anxiety) Qty: 0 RF: 0 quetiapine 50 mg Tablet 25 mg PO BID Qty: 0 RF: 0 furosemide [Lasix] 20 mg tablet 10 mg PO DAILY Qty: 30 RF: 0 ibuprofen 600 mg tablet 600 mg PO TID PRN (Reason: pain) Qty: 10 RF: 0 nitrofurantoin monohyd/m-cryst [Macrobid] 100 mg capsule 100 mg PO BID 7 Days Qty: 14 RF: 0 metformin 500 mg tablet 500 mg PO DAILY@08 RF: 0 metoprolol succinate 50 mg Tablet Extended Release 24 Hr 50 mg PO DAILY 30 Days Qty: 30 RF: 0 sennosides [senna] 8.6 mg tablet 1 tab PO BID PRN (Reason: constipation) RF: 0 thiamine HCl (vitamin B1) 100 mg tablet 1 tab PO QAM RF: 0 acetaminophen 650 mg tablet extended release 1 tab PO BID PRN (Reason: pain) RF: 0 folic acid 1 mg tablet 1 tab PO QAM RF: 0
[2021-07-03] MEDS: predniSONE 20 MG TABLET 40 MG PO (06:32)
[2021-07-03 06:33] VITALS: BP 142/94; PULSE 97; RESP 18; TEMP 37.1; O2SAT 97
== END 2021-07-03 10:13 | disposition home or self-care (01) ==
PROVIDERS: Emergency Provider Emergency Medicine Emergency Medical Services
DX: M10.9 Gout, unspecified (principal); I11.0 Hypertensive heart disease with heart failure; I50.9 Heart failure, unspecified; E11.9 Type 2 diabetes mellitus without complications; I25.10 Atherosclerotic heart disease of native coronary artery without angina pectoris; J44.9 Chronic obstructive pulmonary disease, unspecified; Z79.82 Long term (current) use of aspirin; Z79.84 Long term (current) use of oral hypoglycemic drugs; Z79.899 Other long term (current) drug therapy
CPT/HCPCS: 99284

== ENCOUNTER 2021-07-04 18:36 | Inpatient (IN) | payer MEDICARE, MEDICAID, SELFPAY ==
--- NOTE | ~2021-07-04 | XR_ITS ---
EXAMINATION: XR KNEE, RIGHT CLINICAL INFORMATION: Right knee pain and swelling. COMPARISON: Right knee 06/05/2019. TECHNIQUE: Four views of the right knee. FINDINGS: Medial compartment: Marked joint space narrowing, marked osteophytosis, marked subchondral sclerosis. Findings grossly unchanged compared with 06/05/2019. Lateral compartment: Moderate joint space narrowing. Moderate femoral and tibial plateau subchondral sclerosis and subchondral cyst for patient. Moderate-marked condyle osteophytosis and moderate tibial plateau osteophytosis unchanged appreciably compared with 06/05/2019. Patellofemoral compartment: Osteophytosis and marked joint space narrowing unchanged compared with 06/05/2019. A suprapatellar bursal effusion is again noted. Focal pretibial soft tissue inflammatory changes. XR/XR knee RT 4V IMPRESSION: -Marked tricompartmental osteoarthritis grossly unchanged compared with 06/05/2019. -Right knee joint effusion. A joint effusion was also present 06/05/2019.
--- NOTE | ~2021-07-04 | XR_ITS ---
EXAMINATION: XR CHEST CLINICAL INFORMATION: Dyspnea COMPARISON: Previous chest x-ray April 2021 TECHNIQUE: Frontal view of the chest was obtained. FINDINGS: The cardiac and mediastinal contours are stable. The lungs are clear. There is no pleural effusion or pneumothorax. There are degenerative changes of the spine and at the shoulder joints. XR/XR chest 1V IMPRESSION: No evidence for acute disease in the chest.
[2021-07-04 18:46] VITALS: BP 93/60; PULSE 74; O2SAT 99
--- NOTE | 2021-07-04 18:59 | ED_ITS ---
HPI - Extremity Problem General Chief complaint: Extremity Injury, Lower Stated complaint: leg pain Time Seen by Provider: 07/04/21 18:50 Source: patient Limitations: language barrier (History obtained via hospital marketing production coordinator) History of Present Illness HPI Narrative: This is a 66-year-old female who complains of pain in the right knee she has had for few days. The patient was seen here yesterday and states that she had the problem then, though the note from yesterday described right upper extremity pain. Patient denies that she was given any new medications after her visit yesterday, the review of records indicate she was started on prednisone for possible gout in her right wrist. The patient complains of severe pain to her right knee, worse with movement. She states she is unable to walk. She has noticed some swelling. She denies any fever. She denies any chest pain. She does have shortness of breath, has history of asthma. He does use an inhaler at home. She denies any abdominal pain, nausea vomiting. She denies any trauma to the right knee. She lives at home with her . She admits tobacco smoking daily, as well as alcohol use daily, had 2 beers today Related Data Home Medications Medication Instructions Recorded Confirmed albuterol sulfate 90 mcg/actuation 2 puff INHALATION Q4-6H PRN 08/18/20 05/05/21 aerosol inhaler (Ventolin HFA) aspirin 81 mg tablet,delayed 81 mg PO BEDTIME 08/18/20 05/05/21 release fluticasone propionate 220 1 puff INHALATION BID 08/18/20 05/05/21 mcg/actuation HFA aerosol inhaler (Flovent HFA) montelukast 10 mg tablet 10 mg PO QPM 08/18/20 05/05/21 baclofen 20 mg tablet 20 mg PO DAILY PRN 10/10/20 05/05/21 pravastatin 20 mg tablet 20 mg PO BEDTIME 10/10/20 05/05/21 metformin 500 mg tablet 500 mg PO DAILY@08 11/04/20 05/05/21 acetaminophen 650 mg 1 tab PO BID PRN 02/04/21 05/05/21 tablet,extended release folic acid 1 mg tablet 1 tab PO QAM 02/04/21 05/05/21 sennosides 8.6 mg tablet (senna) 1 tab PO BID PRN 02/04/21 05/05/21 thiamine HCl (vitamin B1) 100 mg 1 tab PO QAM 02/04/21 05/05/21 tablet citalopram 40 mg tablet 1 tab PO DAILY 05/05/21 05/05/21 Previous Rx's Medication Instructions Recorded metoprolol succinate 50 mg 50 mg PO DAILY 30 Days #30 tab 11/08/20 tablet,extended release 24 hr amlodipine 10 mg tablet 10 mg PO DAILY 30 Days #30 tab 05/10/21 clonazepam 1 mg tablet 0.5 mg PO BID PRN #0 tab 05/10/21 furosemide 20 mg tablet (Lasix) 10 mg PO DAILY #30 tab 05/10/21 hydralazine 25 mg tablet 25 mg PO TID 30 Days #90 tab 05/10/21 omeprazole 40 mg capsule,delayed 40 mg PO DAILY@0630 30 Days #30 cap 05/10/21 release quetiapine 50 mg tablet 25 mg PO BID #0 tab 05/10/21 sodium chloride 1 gram tablet 2 g PO TID 10 Days #60 tab 05/10/21 ibuprofen 600 mg tablet 600 mg PO TID PRN #10 tab 06/01/21 nitrofurantoin 100 mg PO BID 7 Days #14 cap 06/16/21 monohydrate/macrocrystals 100 mg capsule (Macrobid) prednisone 20 mg tablet 40 mg PO DAILY 5 Days #10 tab 07/03/21 tramadol 50 mg tablet 50 - 100 mg PO Q6H PRN #20 tab 07/04/21 Allergies Allergy/AdvReac Type Severity Reaction Status Date / Time advair Allergy Unknown Unknown Uncoded 03/25/21 20:12 paxil Allergy Unknown Unknown Uncoded 02/12/21 20:38 From PAXIL AdvReac Intermediate NAUSEA & Uncoded 02/12/21 20:38 VOMITING Review of Systems Review of Systems: Yes all other systems are reviewed and are negative Constitutional: Constitutional: Denies fever(s) Eyes: Eyes: Reports as per HPI and Reports no additional eye complaints ENT: Reports system reviewed and no additional complaints, except as documented, Reports as per HPI, Denies nasal congestion, Denies nasal discharge and Denies sore throat Cardiovascular: Cardiovascular: Reports as per HPI, Denies chest pain and Reports dyspnea Respiratory: Respiratory: Reports as per HPI, Denies cough, Reports dyspnea and Reports wheezing Gastrointestinal: Gastrointestinal: Reports as per HPI, Denies abdominal pain, Denies diarrhea and Denies vomiting Genitourinary: Genitourinary: Reports as per HPI, Denies hematuria, Denies urinary frequency and Denies dysuria Musculoskeletal: Musculoskeletal: Reports as per HPI and Reports numbness Integumentary/Breasts: Skin/Breast: Reports as per HPI and Denies rash Neurologic: Reports as per HPI, Denies focal weakness, Reports numbness and Denies Sensory deficit (Neuro) Psychiatric: Psychiatric: Reports no additional psychiatric complaints and Reports as per HPI Endocrine: Endocrine: Reports no additional endocrine complaints and Reports as per HPI Hematologic/Lymphatic: Hematologic/Lymphatic: Reports no additional hematologic/lymphatic complaints, Reports as per HPI and Reports other (No peripheral edema) Allergic/Immunologic: Allergic/Immunologic: Reports wheezing PMFSH Past Medical History Medical History Acute hyponatremia Alcohol use disorder Bipolar 1 disorder Bipolar I disorder Chronic hyponatremia Congestive heart failure COPD (chronic obstructive pulmonary disease) Coronary artery disease Diabetes Hypertension Osteoarthritis Schizophrenia Sleep apnea Surgical History Hx of appendectomy Social History Social History Household Members: Unknown / Unable to assess Housing: Apartment Unable to assess alcohol history related to: Unknown Alcohol intake: never Patient Tobacco Use Status: Current everyday Tobacco user Tobacco use type: Cigarette Cigarettes Per Day: 5 Years Smoked: 52 e-Cigarette/Vaping Use: Currently Using Second Hand Smoke Exposure: No Substance Use Type: Marijuana Advance Directives: Yes Advance Directives on File: Yes Advance Directives Date on File: 10/10/20 service: No Current occupational status: unemployed, disabled and other Physical Exam Vital Signs: Vital Signs: Last Vital Signs Temp 98.3 F 07/04/21 22:00 Pulse 78 07/04/21 22:00 Resp 16 07/04/21 22:00 BP 102/53 L 07/04/21 22:00 Pulse Ox 94 07/04/21 22:00 Body Mass Index 27.4 Const: General: cooperative, no acute distress and alert Orientation/consciousness: patient oriented x3 HENMT: Head: Yes normal to inspection Eyes: General: appearance normal, both eyes and all related structures Eyelids: Yes eyelids normal Conjunctivae: conjunctivae normal Pupils: Equal, round and reactive pupils present Neck: Neck: Yes normal visual inspection and Yes supple Chest: Chest palpation & inspection: normal inspection of the chest Resp: Effort & Inspection: normal respiratory effort Auscultation: not clear to auscultation bilaterally and wheezes (Mild expiratory bilaterally) expiratory wheezes Cardio: Rate: regular rate Rhythm: regular rhythm Heart sounds: S1 normal heart sound present, S2 normal heart sound present, no gallops, no murmurs and no rubs GI: Palpation (GI): Soft to palpation, nontender and Other GI palpation findings present (Non-distended) Auscultation: normal bowel sounds Skin: General skin exam: no rashes or lesions noted Neuro: General: patient oriented x3, no focal motor deficits and CN's II-XI intact bilaterally Cranial nerves: Yes Equal, round and reactive pupils present Cognition (Neuro): normal cognition Motor exam (neuro): 5/5 motor strength present throughout Sensory Exam: No Sensory deficit (Neuro) Extrem: General: Yes no pedal edema Right lower extremity: knee (Possible mild effusion, no erythema or significant warmth.) Psych: Appearance: grossly normal Affect: normal affect MDM - Extremity (Nontraumatic) MDM Narrative Medical decision making narrative: Patient complains pain to her right knee. Patient was here yesterday complaining of upper extremity pain and was started on prednisone, though the patient seems to have no recollection of being prescribed any medication. Patient does have history of dementia, as well as regular alcohol use. Patient was to be discharged home however the patient's significant other states he is unable to take care of her, that she cannot walk. Patient herself states that she cannot walk. Case management was consulted and states that this exact scenario his plate out before and that she has refused snf facility placement and usually the patient's partner take her back after a few days of respite. Physical therapy consultation has been ordered for the morning. Labs were not initially indicated based on the complaint however have ordered CBC, CMP, urinalysis and the patient was signed out to Dr. Fragoso, pending lab evaluation, PT evaluation, case management evaluation Discharge Plan Discharge Clinical Impression: Acute knee pain, Dementia Patient Disposition: Still a Patient Instructions: Arthralgia (ED) Additional Instructions: Continue the prednisone as prescribed yesterday. Use tramadol as prescribed for pain. Follow-up with primary care physician. Prescriptions: New tramadol 50 mg tablet 50 - 100 mg PO Q6H PRN (Reason: pain) Qty: 20 RF: 0 No Action aspirin 81 mg tablet,delayed release (DR/EC) 81 mg PO BEDTIME RF: 0 montelukast 10 mg tablet 10 mg PO QPM RF: 0 Flovent HFA 220 mcg/actuation HFA aerosol inhaler 1 puff inhalation BID RF: 0 albuterol sulfate [Ventolin HFA] 90 mcg/actuation HFA aerosol inhaler 2 puff inhalation Q4-6H PRN (Reason: Shortness Of Breath Or Wheezing) RF: 0 baclofen 20 mg Tablet 20 mg PO DAILY PRN (Reason: Muscle Pain) RF: 0 pravastatin 20 mg Tablet 20 mg PO BEDTIME RF: 0 citalopram 40 mg tablet 1 tab PO DAILY RF: 0 sodium chloride 1 gram Tablet 2 g PO TID 10 Days Qty: 60 RF: 0 hydralazine 25 mg Tablet 25 mg PO TID 30 Days Qty: 90 RF: 0 amlodipine 10 mg Tablet 10 mg PO DAILY 30 Days Qty: 30 RF: 0 omeprazole 40 mg Capsule,Delayed Release(Dr/Ec) 40 mg PO DAILY@0630 30 Days Qty: 30 RF: 0 clonazepam 1 mg Tablet 0.5 mg PO BID PRN (Reason: anxiety) Qty: 0 RF: 0 quetiapine 50 mg Tablet 25 mg PO BID Qty: 0 RF: 0 furosemide [Lasix] 20 mg tablet 10 mg PO DAILY Qty: 30 RF: 0 ibuprofen 600 mg tablet 600 mg PO TID PRN (Reason: pain) Qty: 10 RF: 0 nitrofurantoin monohyd/m-cryst [Macrobid] 100 mg capsule 100 mg PO BID 7 Days Qty: 14 RF: 0 metformin 500 mg tablet 500 mg PO DAILY@08 RF: 0 metoprolol succinate 50 mg Tablet Extended Release 24 Hr 50 mg PO DAILY 30 Days Qty: 30 RF: 0 sennosides [senna] 8.6 mg tablet 1 tab PO BID PRN (Reason: constipation) RF: 0 thiamine HCl (vitamin B1) 100 mg tablet 1 tab PO QAM RF: 0 acetaminophen 650 mg tablet extended release 1 tab PO BID PRN (Reason: pain) RF: 0 folic acid 1 mg tablet 1 tab PO QAM RF: 0 prednisone 20 mg tablet 40 mg PO DAILY 5 Days Qty: 10 RF: 0
[2021-07-04 19:04] VITALS: BP 101/78; PULSE 76; RESP 20; TEMP 36.6; O2SAT 96; BMI 27.4
[2021-07-04] MEDS: Acetaminophen 325 MG TABLET 650 MG PO (19:22)
[2021-07-04] MEDS: oxyCODONE HCl Immed Release 5 MG TABLET PO (19:22)
[2021-07-04] MEDS: predniSONE 20 MG TABLET 40 MG PO (19:23)
--- NOTE | 2021-07-04 19:24 | PC.NURSE ---
PT medicated per NOV. Waiting to receive duoneb from RT.
[2021-07-04 19:43] VITALS: PULSE 94; O2SAT 78
[2021-07-04] MEDS: Albuterol/Iprat 2.5/0.5MG 3 ML AMPUL.NEB INHALE (19:43)
--- NOTE | 2021-07-04 21:29 | PC.NURSE ---
PT is ready for discharge. This RN to call family member (Abran) to coordinate ride.
--- NOTE | 2021-07-04 21:42 | PC.NURSE ---
This nurse contacted significant other (Juanjo) as PT was ready for discharge and needs ride home. Individual stated that PT has dementia and is unable to care for self at home. Level of care he can provide at home is not adequate so he would like for PT to be admitted to a facility to receive the care she needs. Provide made aware.
--- NOTE | 2021-07-04 21:55 | PC.NURSE ---
This RN spoke with case folder. PT's has history of refusing to take back home after ED visits in the past, citing unable to care for at home. PT usually ends up going home after declining to go to a snf from ED. Case management to reach out to to devise plan of care.
[2021-07-04 22:00] VITALS: BP 102/53; PULSE 78; RESP 16; TEMP 36.8; O2SAT 94
--- NOTE | 2021-07-04 22:04 | PC.NURSE ---
Provider to order PT/CM consult as PT is unable to ambulate self in hospital or at home prior to arrival of EMS.
--- NOTE | 2021-07-04 22:05 | PC.NURSE ---
Plan for PT consult in the morning and possibly CM.
--- NOTE | 2021-07-04 22:46 | MHC.CM.ED ---
CM met with pt, well known to this CM. Pt lives with her S.O.. Pt has frequent falls and leg pain with this admission. Pt lives with S.O./HCP Juanjo Montelongo ([phone]). who tells RN he cannot care for her. Pt uses a walker. HCP is on file. 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 Invoked HCP is on file. PCP is Dr. Monique. ? if patient is still active with [facility]. Was active on 05/06/21. Will need to verify in the am. Pt states she has not been vaccinated for COVID. Pt is agreeable to PT evaluation in the am. At this time, pt is agreeable to [facility], but pt has refused in the past. Referrals placed-broadcast secondary to pt not being vaccinated. CM to follow for d/c needs.
[2021-07-04 22:57] LABS: Hematocrit 25.5 % (37-47); Hemoglobin 9.4 g/dl (12.0-16.0); Imm Gran Abs Auto 0.07 X10*3/uL (0.00-0.03); Imm Gran Pct Auto 0.7 % (0.0-0.4); Lymphocytes Absolute Auto 0.3 X10*3/uL (1.2-4.9); Lymphocytes Percent Auto 2.3 % (20-40); MANUAL DIFF FLAG SCAN; Mean Corpuscular HGB Conc 36.9 g/dl (31.0-35.0); Mean Corpuscular Hemoglobin 31.6 pg (27.0-33.0); Mean Corpuscular Volume 85.9 fL (80-98); Mean Platelet Volume 9.4 fL (9.4-12.3); Monocytes Absolute Auto 0.7 X10*3/uL (0.1-1.2); Monocytes Percent Auto 6.3 % (2-11); Neutrophils Absolute Auto 9.7 X10*3/uL (2.0-8.3); Neutrophils Percent Auto 90.7 % (45-73); Platelet Count 198 X10*3/uL (160-400); Red Blood Count 2.97 X10*6/uL (4.20-5.50); Red Cell Distribution Width 13.8 % (11.0-16.0); SCAN SMEAR FLAG 1; White Blood Count 10.7 X10*3/uL (4.8-10.8)
--- NOTE | 2021-07-04 23:13 | PC.NURSE ---
technical solution architect at bedside for labs.
[2021-07-04 23:19] LABS: SLIDE REVIEW VERIFIED
[2021-07-04 23:31] LABS: Alanine Aminotransferase 15 U/L (0-31); Albumin Level 2.9 g/dL (3.5-5.0); Alkaline Phosphatase 79 U/L (39-117); Anion Gap 14 (12-20); Aspartate Amino Transferase 24 U/L (5-31); Bilirubin Total 0.4 mg/dL (0.0-1.0); Blood Urea Nitrogen 16 mg/dL (9-16); Calcium 7.9 mg/dL (8.4-10.2); Carbon Dioxide 23 mmol/L (22-29); Chloride 84 mmol/L (96-108); Creatinine Clr Calc Pharmacy 46.6; Estimated Glomerular Filt Rate 46; Glucose Random 119 mg/dL (60-115); Potassium 4.5 mmol/L (3.3-5.1); Sodium 116 mmol/L (135-145); Total Protein 5.6 g/dL (6.5-8.0)
[2021-07-04] MEDS: 0.9 % Sodium Chloride 1,000 ML 100 ML IVCONT (23:53)
--- NOTE | 2021-07-04 23:53 | PC.NURSE ---
MD at bedside for reeval after baseline labs resulted. IV established, NS infusing per NOV. Covid swab obtained. Plan for MD, ICU admission.
[2021-07-05] VITALS (19 sets, daily range): BP systolic 101–131; BP diastolic 51–67; PULSE 63–95; RESP 15–19; TEMP 36.1–37.4; O2SAT 84–98; BMI 29.8
--- NOTE | 2021-07-05 | ECG_ITS ---
Test Reason : LOW SODUIM Blood Pressure : / mmHG Vent. Rate : 075 BPM Atrial Rate : 075 BPM P-R Int : 172 ms QRS Dur : 096 ms QT Int : 426 ms P-R-T Axes : 064 -11 051 degrees QTc Int : 475 ms Normal sinus rhythm RSR' or QR pattern in V1 suggests right ventricular conduction delay Low voltage QRS ST & T wave abnormality, consider anterior ischemia Prolonged QT Abnormal ECG When compared with ECG of 01-JUN-2021 02:25, No significant change was found Referred By: Niurka Olguin Electronically Signed By:ALVARO SEVERINO MD
--- NOTE | 2021-07-05 00:05 | PC.NURSE ---
Dudley inserted per verbal order by . ILEANA obtained and sent.
[2021-07-05 00:16] LABS: COVID-19 Test Negative (Negative)
[2021-07-05 00:20] LABS: Appearance Urine CLEAR; Color Urine YELLOW; Glucose Urine UA NEG (NEG); Leukocyte Esterase Urine NEG (NEG); Nitrite Urine NEG (NEG); Specific Gravity - Urine <= 1.005 (1.005-1.025); Urine Blood NEG (NEG); Urine Ketones NEG (NEG); Urine Protein NEG (NEG-TRACE)
[2021-07-05 00:25] LABS: Ethanol < 10 mg/dL
--- NOTE | 2021-07-05 00:37 | PM.CCHP ---
History of Present Illness Date of Service: 07/05/21 <Niurka Olguin NP - Last Filed: 07/05/21 03:20> Attending physician on admission: Delores Mason <Niurka Olguin NP - Last Filed: 07/05/21 03:20> Chief Complaint: Right knee pain <Niurka Olguin NP - Last Filed: 07/05/21 03:20> This is a 65-year-old female? Ukrainian-speaking only with a past medical history of congestive heart failure, COPD, DANO, CAD, diabetes, hypertension,? and ETOH abuse who presented to the emergency room With complaints of knee pain.? She reported severe pain to her right knee? that worsens with movement. ? She denied any trauma to the right knee.? It was noted that patient was started? recently of prednisone for gout of her right wrist.? In the emergency the patient's vital signs stable,? but laboratory data showed? sodium of 116? ( patient baseline 122-126)? with no neurological? deficit.?? She was started on normal saline. We will admit into the ICU for management hyponatremia? <Niurka Olguin NP - Last Filed: 07/05/21 03:20> Review of Systems Constitutional: Constitutional: Denies chills, Denies fever(s) and Denies poor appetite <Niurka Olguin NP - Last Filed: 07/05/21 03:20> ENT: Denies dizziness <Niurka Olguin NP - Last Filed: 07/05/21 03:20> Cardiovascular: Cardiovascular: Denies chest pain, Denies diaphoresis, Denies lightheadedness and Denies dyspnea <Niurka Olguin NP - Last Filed: 07/05/21 03:20> Respiratory: Respiratory: Denies cough and Denies dyspnea <Niurka Olguin NP - Last Filed: 07/05/21 03:20> Gastrointestinal: Gastrointestinal: Denies diarrhea, Denies nausea and Denies vomiting <Niurka Olguin NP - Last Filed: 07/05/21 03:20> Musculoskeletal: Comments: Right knee pain <Niurka Olguin NP - Last Filed: 07/05/21 03:20> Neurologic: Denies dizziness and Denies seizure-like activity <Niurka Olugin NP - Last Filed: 07/05/21 03:20> [facility] Past Medical History Medical History: Medical History Acute hyponatremia Alcohol use disorder Bipolar 1 disorder Bipolar I disorder Chronic hyponatremia Congestive heart failure COPD (chronic obstructive pulmonary disease) Coronary artery disease Diabetes Hypertension Osteoarthritis Schizophrenia Sleep apnea <Niurka Olguin NP - Last Filed: 07/05/21 03:20> Surgical History Surgical History: Surgical History Hx of appendectomy <Niurka Olguin NP - Last Filed: 07/05/21 03:20> Social History Social History: Social History Household Members: Family Housing: Apartment Do you presently have visiting nurse or other home services: No Unable to assess alcohol history related to: Unknown Alcohol intake: never Patient Tobacco Use Status: Current everyday Tobacco user Tobacco use type: Cigarette Cigarettes Per Day: 5 Years Smoked: 52 Smoked in Last 30 Days: Yes e-Cigarette/Vaping Use: Currently Using Patient Interested in Nicotine Replacement: Yes Patient Given Instructions on How to Stop Smoking: Yes Date Education Initiated: 07/05/21 Second Hand Smoke Exposure: Yes Use of substances other than those prescribed or required for medical reasons: Yes Substance Use Type: Marijuana Substance Use Frequency: Daily Last Used Substance: Days (ago) Currently Displaying Signs/Symptoms of Drug Intoxication Withdrawal: No Any prior treatment program specific to substance use: No Have you been hit, kicked, punched, or otherwise hurt by someone within the past year? If so, by whom?: No Do you feel safe in your current relationship?: Yes Is there a partner from a previous relationship who is making you feel unsafe now?: No Are you made to feel afraid or neglected: No Advance Directives: Yes Advance Directives on File: Yes Advance Directives Date on File: 10/10/20 Do you have thoughts of harming others: None Do you have a plan to hurt others: No Plan Recently lost weight without trying: No Nutrition Risks: No Nutritional Risk Patient : No : No Poor oral hygiene: No service: No Current occupational status: unemployed, disabled and other <Niurka Olguin NP - Last Filed: 07/05/21 03:20> Meds Allergies/Adverse reactions: Allergies Allergy/AdvReac Type Severity Reaction Status Date / Time advair Allergy Unknown Unknown Uncoded 03/25/21 20:12 paxil Allergy Unknown Unknown Uncoded 02/12/21 20:38 From PAXIL AdvReac Intermediate NAUSEA & Uncoded 02/12/21 20:38 VOMITING <Niurka Olguin NP - Last Filed: 07/05/21 03:20> Active Medications: Current Medications Heparin Sodium (Porcine) (Heparin Sodium,Porcine 5,000 Unit/Ml Vial) 5,000 unit SUBCUT Q8H YUMIKO Sodium Chloride (Ns) 1,000 mls @ 100 mls/hr IVCONT .Q10H [facility] Last Admin: 07/04/21 23:53 Dose: 100 mls/hr Documented by: Sodium Chloride (Ns) 500 mls @ 500 mls/hr IV .Q1H YUMIKO Stop: 07/05/21 01:29 <Niurka Olguin NP - Last Filed: 07/05/21 03:20> Home medications: Home Medications Medication Instructions Recorded Confirmed Last Taken Type albuterol sulfate 90 mcg/actuation 2 puff INHALATION Q4-6H PRN 08/18/20 05/05/21 Unknown History aerosol inhaler (Ventolin HFA) aspirin 81 mg tablet,delayed 81 mg PO BEDTIME 08/18/20 05/05/21 Unknown History release fluticasone propionate 220 1 puff INHALATION BID 08/18/20 05/05/21 Unknown History mcg/actuation HFA aerosol inhaler (Flovent HFA) montelukast 10 mg tablet 10 mg PO QPM 08/18/20 05/05/21 Unknown History baclofen 20 mg tablet 20 mg PO DAILY PRN 10/10/20 05/05/21 Unknown History pravastatin 20 mg tablet 20 mg PO BEDTIME 10/10/20 05/05/21 Unknown History metformin 500 mg tablet 500 mg PO DAILY@08 11/04/20 05/05/21 Unknown History acetaminophen 650 mg 1 tab PO BID PRN 02/04/21 05/05/21 Unknown History tablet,extended release folic acid 1 mg tablet 1 tab PO QAM 02/04/21 05/05/21 Unknown History sennosides 8.6 mg tablet (senna) 1 tab PO BID PRN 02/04/21 05/05/21 Unknown History thiamine HCl (vitamin B1) 100 mg 1 tab PO QAM 02/04/21 05/05/21 Unknown History tablet citalopram 40 mg tablet 1 tab PO DAILY 05/05/21 05/05/21 Unknown History <Niurka Olguin NP - Last Filed: 07/05/21 03:20> Physical Exam Vital Signs: Vital Signs: Last Vital Signs Temp 98.1 F 07/05/21 00:00 Pulse 73 07/05/21 00:00 Resp 18 07/05/21 00:00 BP 118/61 07/05/21 00:00 Pulse Ox 97 07/05/21 00:00 Body Mass Index 27.4 <Niurka Olguin NP - Last Filed: 07/05/21 03:20> Constitutional: Alert, x 3.? Does have history of dementia at times? forgetful HEENT: Normocephalic. Pupils are equal, round and reactive to light. Oropharynx clear, dry mucous membranes . Neck: Supple, Full range of motion. Respiratory: Expiratory wheezing in all lung pedro.? No resp distress. Cardiovascular: S1 S2 regular. No murmurs, rubs or gallops. Gastrointestinal: Abdomen soft, non-tender, non-distended. Normal bowel sounds. No pulsatile mass. No hepatosplenomegaly. Neurologic: ? Able to move all extremities? to command. ? Strength is normal all extremities.? Skin: Multiple bruises on bilateral lower extremities.? +1 edema on BLE? extremity.? Heme/Lymphatics/Immun: Palpation of neck reveals no swelling or tenderness of neck nodes. Psychiatric: Normal mood and affect <Niurka Olguin NP - Last Filed: 07/05/21 03:20> Results Labs CBC and Chem 7: : 07/05/21 07:28 07/05/21 08:42 <Niurka Olguin NP - Last Filed: 07/05/21 03:20> Labs: Laboratory Results - last 24 hr 07/04/21 07/04/2107/04/21 22:48 22:48 22:48 MCV 85.9 MCH 31.6 MCHC 36.9 H RDW 13.8 Plt Count 198 D MPV 9.4 Immature Gran % (Auto) 0.7 H Neut % (Auto) 90.7 H Lymph % (Auto) 2.3 L [place] % (Auto) 6.3 Eos % (Auto) 0.0 Baso % (Auto) 0.0 Lymph # (Auto) 0.3 L [place] # (Auto) 0.7 Eos # (Auto) 0.0 Baso # (Auto) 0.0 Abs Immat Gran (auto) 0.07 H Absolute Neuts (auto) 9.7 H Absolute Nucleated RBC 0.000 Nucleated RBC % (auto) 0.0 Smear Tech's Comments VERIFIED Anion Gap 14 Estim Creat Clear Calc 46.6 Estimated GFR 46 Random Glucose 119 H Calcium 7.9 L Total Bilirubin 0.4 AST 24 D ALT 15 Alkaline Phosphatase 79 Total Protein 5.6 L Albumin 2.9 L Urine Color Urine Appearance Urine pH Ur Specific [place] Urine Protein Urine Glucose (UA) Urine Ketones Urine Blood Urine Nitrite Ur Leukocyte Esterase Ethyl Alcohol < 10 COVID-19 (ZAKIA) COVID-19 Clin Com 07/04/21 07/05/21 23:52 00:04 MCV MCH MCHC RDW Plt Count MPV Immature Gran % (Auto) Neut % (Auto) Lymph % (Auto) [place] % (Auto) Eos % (Auto) Baso % (Auto) Lymph # (Auto) [place] # (Auto) Eos # (Auto) Baso # (Auto) Abs Immat Gran (auto) Absolute Neuts (auto) Absolute Nucleated RBC Nucleated RBC % (auto) Smear Tech's Comments Anion Gap Estim Creat Clear Calc Estimated GFR Random Glucose Calcium Total Bilirubin AST ALT Alkaline Phosphatase Total Protein Albumin Urine Color YELLOW Urine Appearance CLEAR Urine pH 6.0 Ur Specific [place] <= 1.005 Urine Protein NEG Urine Glucose (UA) NEG Urine Ketones NEG Urine Blood NEG Urine Nitrite NEG Ur Leukocyte Esterase NEG Ethyl Alcohol COVID-19 (ZAKIA) Negative COVID-19 Clin Com See Note <Niurka Olguin NP - Last Filed: 07/05/21 03:20> Assessment and Plan (1) Acute hyponatremia: Status: Acute <Niurka Olguin NP - Last Filed: 07/05/21 03:20> (2) Dementia: Status: Acute <Niurka Olguin NP - Last Filed: 07/05/21 03:20> (3) Acute knee pain: Status: Acute <Niurka Olguin NP - Last Filed: 07/05/21 03:20> (4) SAGAR (acute kidney injury): Status: Resolved <Niurka Olguin NP - Last Filed: 07/05/21 03:20> 65-year-old female with a past medical history of ETOH abuse and congestive heart failure on Lasix? who was admitted into the ICU for hyponatremia with no neuro deficits?? ? Plan:? Neuro:? ?No acute issues Cardiac:? no acute issues Pulmonary:? No acute issues Renal:? Acute hyponatremia? -? patient has multiple possible causes for hyponatremia.? She does admit to ETOH abuse? and is on Lasix at home.? . Urine studies pending.? Started on Normal saline. Water restriction.? Frequent neuro checks. Serial serum sodium.? SAGAR- most likely related to hypoperfusion nonoliguric.? Continue? IV fluids.? Continue to check renal induces and urine output Endo:? No acute issues.?? GI: no acute issues?? ID:? no acute issues Heme/Onc:? No acute issues. Psych:? ETOH abuse:? will closely monitor for? signs and symptoms of alcohol withdrawal.? Will start folic/thiamine Miscellaneous: ? no acute issues Diet:NPO ? prophylaxis: Heparin, No GI prophylaxis at this time ? Critical care time:? X 45 minutes of critical care time ? Code? status:? FULL CODE? ? Case discussed with attending Dr Mason <Niurka Olguin NP - Last Filed: 07/05/21 03:20> Critical Care Time 45 minutes <Niurka Olguin NP - Last Filed: 07/05/21 03:20>
[2021-07-05 00:44] LABS: Osmolality, Serum 239 mosm/kg (281-305)
[2021-07-05 00:49] LABS: Osmolality Urine 122 mosm/kg (373-1093)
[2021-07-05] MEDS: 0.9 % Sodium Chloride 500 ML IV (01:00)
[2021-07-05] MEDS: Heparin Sodium,Porcine 5,000 UNIT/ML VIAL 5000 UNIT SUBCUT ×3 (01:00→18:07)
--- NOTE | 2021-07-05 01:02 | PC.NURSE ---
IVF infusing per MAR. VSS. V/[employer] SIGNAL OFFICER unable to take report at this time.
[2021-07-05 03:29] LABS: Sodium Urine Random < 20.0 mmol/L
[2021-07-05 03:53] LABS: Anion Gap 12 (12-20); Blood Urea Nitrogen 16 mg/dL (9-16); Calcium 8.2 mg/dL (8.4-10.2); Carbon Dioxide 25 mmol/L (22-29); Chloride 88 mmol/L (96-108); Estimated Glomerular Filt Rate 50; Glucose Random 129 mg/dL (60-115); Potassium 4.4 mmol/L (3.3-5.1); Sodium 121 mmol/L (135-145)
[2021-07-05 07:36] LABS: MANUAL DIFF FLAG NO
[2021-07-05 07:45] LABS: Hematocrit 28.9 % (37-47); Hemoglobin 10.4 g/dl (12.0-16.0); Imm Gran Abs Auto 0.03 X10*3/uL (0.00-0.03); Imm Gran Pct Auto 0.4 % (0.0-0.4); Lymphocytes Absolute Auto 0.3 X10*3/uL (1.2-4.9); Lymphocytes Percent Auto 3.5 % (20-40); Mean Platelet Volume 9.6 fL (9.4-12.3); Monocytes Absolute Auto 0.5 X10*3/uL (0.1-1.2); Monocytes Percent Auto 6.1 % (2-11); Neutrophils Absolute Auto 7.2 X10*3/uL (2.0-8.3); Platelet Count 224 X10*3/uL (160-400); Red Blood Count 3.36 X10*6/uL (4.20-5.50)
[2021-07-05] MEDS: Thiamine HCL 100 MG TABLET PO (09:01)
[2021-07-05] MEDS: Hydrocortisone Sod Succ/PF 100 MG VIAL 50 MG IVPUSH ×2 (09:01→22:43)
[2021-07-05] MEDS: Folic Acid 1 MG TABLET PO (09:01)
[2021-07-05] MEDS: 0.9 % Sodium Chloride 1,000 ML 75 ML IVCONT (09:09)
[2021-07-05 09:18] LABS: Alanine Aminotransferase 13 U/L (0-31); Albumin Level 3.1 g/dL (3.5-5.0); Alkaline Phosphatase 86 U/L (39-117); Anion Gap 11 (12-20); Aspartate Amino Transferase 20 U/L (5-31); Bilirubin Total 0.4 mg/dL (0.0-1.0); Blood Urea Nitrogen 17 mg/dL (9-16); Calcium 8.1 mg/dL (8.4-10.2); Carbon Dioxide 27 mmol/L (22-29); Chloride 90 mmol/L (96-108); Creatinine Clr Calc Pharmacy 58.5; Estimated Glomerular Filt Rate 57; Glucose Random 119 mg/dL (60-115); Magnesium 2.5 mg/dL (1.6-2.6); Phosphorus 3.6 mg/dL (2.7-4.5); Potassium 4.4 mmol/L (3.3-5.1); Sodium 124 mmol/L (135-145)
--- NOTE | 2021-07-05 10:48 | P.PNCC_ITS ---
Subjective Subjective Date of Service: 07/05/21 Interval History: 66-year-old moderately obese type 2 diabetic and hypertensive female who is a chronic alcoholic with a significant beer preference who re- presented with altered mental status and hyponatremia now at 1:16 a.m. but most of her averages in the 120s so was not terribly different and she had a low serum osmolality of 239 so we were not missing any other osmoles and the urine osmolality was a was a appropriately dilute and therefore we are probably dealing with potomania and she was given some normal saline and sodium corrected to 121 within a few hours possibly a little too brisk and in the last few hours up but now to 124 so I am stopping all normal saline just allowing our her diet and she should be watched on a CIWA protocol and treated with what ever Ativan or phenobarbital protocol and this should continue to self correct At 1 point they said they would treating gouty arthritis with prednisone question as to whether not she is taking it so I am covering her with Solu- Cortef for now and in addition I do believe that she is accustomed to regular use of tramadol for what ever pains her Bedside echo because of a history of CHF basically showed normal left ventricular size and systolic function without segmental wall motion abnormality and without primary valve or pericardial disease just some degree of right heart dilatation but she does have a history of COPD and obstructive sleep apnea and I am guessing that she is not terribly cooperative with treatment of her sleep apnea Critical Care Time (minutes): 45 Physical Exam Vital Signs: Vital Signs: Last Vital Signs Temp 98.4 F 07/05/21 08:00 Pulse 82 07/05/21 10:00 Resp 19 07/05/21 10:00 BP 131/65 07/05/21 10:00 Pulse Ox 93 07/05/21 10:00 Body Mass Index 29.8 Awake and responsive oriented and nonfocal neurologically Cardiac exam per my described echo Lungs with diminished breath sounds but no adventitious sounds Skin intact and no livedo and no edema Objective Data Labs CBC & Chem 7: 07/05/21 07:28 07/05/21 08:42 Labs: Laboratory Results - last 24 hr 07/04/21 07/04/21 07/04/21 22:48 22:48 22:48 WBC 10.7 RBC 2.97 L Hgb 9.4 L Hct 25.5 L MCV 85.9 MCH 31.6 MCHC 36.9 H RDW 13.8 Plt Count 198 D MPV 9.4 Immature Gran % (Auto) 0.7 H Neut % (Auto) 90.7 H Lymph % (Auto) 2.3 L [place] % (Auto) 6.3 Eos % (Auto) 0.0 Baso % (Auto) 0.0 Lymph # (Auto) 0.3 L Jones # (Auto) 0.7 Eos # (Auto) 0.0 Baso # (Auto) 0.0 Abs Immat Gran (auto) 0.07 H Absolute Neuts (auto) 9.7 H Absolute Nucleated RBC 0.000 Nucleated RBC % (auto) 0.0 Smear Tech's Comments VERIFIED Sodium 116 L* Potassium 4.5 Chloride 84 L Carbon Dioxide 23 Anion Gap 14 BUN 16 D Creatinine 1.17 Estim Creat Clear Calc 46.6 Estimated GFR 46 Random Glucose 119 H Osmolality 239 L Calcium 7.9 L Phosphorus Magnesium Total Bilirubin 0.4 AST 24 D ALT 15 Alkaline Phosphatase 79 Total Protein 5.6 L Albumin 2.9 L Cancelled Chem Test Urine Color Urine Appearance Urine pH Ur Specific [place] Urine Protein Urine Glucose (UA) Urine Ketones Urine Blood Urine Nitrite Ur Leukocyte Esterase Urine Osmolality Ur Random Sodium Ethyl Alcohol COVID-19 (ZAKIA) [employer] 07/04/21 07/04/21 07/05/21 22:48 23:52 00:04 WBC RBC Hgb Hct MCV MCH MCHC RDW Plt Count MPV Immature Gran % (Auto) Neut % (Auto) Lymph % (Auto) [place] % (Auto) Eos % (Auto) Baso % (Auto) Lymph # (Auto) Jones # (Auto) Eos # (Auto) Baso # (Auto) Abs Immat Gran (auto) Absolute Neuts (auto) Absolute Nucleated RBC Nucleated RBC % (auto) Smear Tech's Comments Sodium Potassium Chloride Carbon Dioxide Anion Gap BUN Creatinine Estim Creat Clear Calc Estimated GFR Random Glucose Osmolality Calcium Phosphorus Magnesium Total Bilirubin AST ALT Alkaline Phosphatase Total Protein Albumin Cancelled Chem Test Urine Color YELLOW Urine Appearance CLEAR Urine pH 6.0 Ur Specific [place] <= 1.005 Urine Protein NEG Urine Glucose (UA) NEG Urine Ketones NEG Urine Blood NEG Urine Nitrite NEG Ur Leukocyte Esterase NEG Urine Osmolality Ur Random Sodium Ethyl Alcohol < 10 COVID-19 (ZAKIA) Negative COVID-19 Clin Com See Note 07/05/21 07/05/21 07/05/21 00:04 00:04 03:26 WBC RBC Hgb Hct MCV MCH MCHC RDW Plt Count MPV Immature Gran % (Auto) Neut % (Auto) Lymph % (Auto) [place] % (Auto) Eos % (Auto) Baso % (Auto) Lymph # (Auto) [place] # (Auto) Eos # (Auto) Baso # (Auto) Abs Immat Gran (auto) Absolute Neuts (auto) Absolute Nucleated RBC Nucleated RBC % (auto) Smear Tech's Comments Sodium 121 L Potassium 4.4 Chloride 88 L Carbon Dioxide 25 Anion Gap 12 BUN 16 Creatinine 1.09 Estim Creat Clear Calc 50.0 Estimated GFR 50 Random Glucose 129 H Osmolality Calcium 8.2 L Phosphorus Magnesium Total Bilirubin AST ALT Alkaline Phosphatase Total Protein Albumin Cancelled Chem Test Urine Color Urine Appearance Urine pH Ur Specific [place] Urine Protein Urine Glucose (UA) Urine Ketones Urine Blood Urine Nitrite Ur Leukocyte Esterase Urine Osmolality 122 L Ur Random Sodium < 20.0 Ethyl Alcohol COVID-19 (ZAKIA) COVID-19 Clin Com 07/05/21 07/05/21 07/05/21 07:28 07:28 08:42 WBC 8.0 RBC 3.36 L Hgb 10.4 L Hct 28.9 L MCV 86.0 MCH 31.0 MCHC 36.0 H RDW 14.0 Plt Count 224 MPV 9.6 Immature Gran % (Auto) 0.4 Neut % (Auto) 90.0 H Lymph % (Auto) 3.5 L [place] % (Auto) 6.1 Eos % (Auto) 0.0 Baso % (Auto) 0.0 Lymph # (Auto) 0.3 L [place] # (Auto) 0.5 Eos # (Auto) 0.0 Baso # (Auto) 0.0 Abs Immat Gran (auto) 0.03 Absolute Neuts (auto) 7.2 Absolute Nucleated RBC 0.000 Nucleated RBC % (auto) 0.0 Smear Tech's Comments Sodium 124 L Potassium 4.4 Chloride 90 L Carbon Dioxide 27 Anion Gap 11 L BUN 17 H Creatinine 0.97 Estim Creat Clear Calc 58.5 Estimated GFR 57 Random Glucose 119 H Osmolality Calcium 8.1 L Phosphorus 3.6 Magnesium 2.5 Total Bilirubin 0.4 AST 20 ALT 13 Alkaline Phosphatase 86 Total Protein 6.0 L Albumin 3.1 L Cancelled Chem Test Cancelled Urine Color Urine Appearance Urine pH Ur Specific [place] Urine Protein Urine Glucose (UA) Urine Ketones Urine Blood Urine Nitrite Ur Leukocyte Esterase Urine Osmolality Ur Random Sodium Ethyl Alcohol COVID-19 (ZAKIA) COVID-19 [place] 07/05/21 08:42 WBC RBC Hgb Hct MCV MCH MCHC RDW Plt Count MPV Immature Gran % (Auto) Neut % (Auto) Lymph % (Auto) [place] % (Auto) Eos % (Auto) Baso % (Auto) Lymph # (Auto) [place] # (Auto) Eos # (Auto) Baso # (Auto) Abs Immat Gran (auto) Absolute Neuts (auto) Absolute Nucleated RBC Nucleated RBC % (auto) Smear Tech's Comments Sodium Cancelled Potassium Cancelled Chloride Cancelled Carbon Dioxide Cancelled Anion Gap Cancelled BUN Cancelled Creatinine Cancelled Estim Creat Clear Calc Cancelled Estimated GFR Cancelled Random Glucose Cancelled Osmolality Calcium Cancelled Phosphorus Magnesium Total Bilirubin AST ALT Alkaline Phosphatase Total Protein Albumin Cancelled Chem Test Urine Color Urine Appearance Urine pH Ur Specific [place] Urine Protein Urine Glucose (UA) Urine Ketones Urine Blood Urine Nitrite Ur Leukocyte Esterase Urine Osmolality Ur Random Sodium Ethyl Alcohol COVID-19 (ZAKIA) COVID-19 [employer] Com Quality Stroke Does the patient have a stroke diagnosis?: No VTE Prior VTE?: No VTE Risk Level:: Medical - moderate - high VTE Device Contraindication: Treatment Not Indicated VTE Drug Contraindication: N/A - Med Ordered Progress Note: A&P Assessment and plan (1) [place] disease: Status: Acute (2) Acute knee pain: Status: Acute (3) Dementia: Status: Acute (4) Acute hyponatremia: Status: Acute (5) Acute confusion: Status: Acute Assessment and Plan: With this degree of reversal of her sodium I am going to slow the process of recovery down and just let her auto diurese and stop her IV normal saline and she is ready for transfer to regular medical floor
[2021-07-05 12:00] LABS: Glucose, Whole Blood 128 mg/dL (60-115)
[2021-07-05 16:25] LABS: Glucose, Whole Blood 148 mg/dL (60-115)
[2021-07-05] MEDS: Albuterol/Iprat 2.5/0.5MG 3 ML AMPUL.NEB INHALE ×2 (16:51→23:00)
[2021-07-05 20:36] LABS: Glucose, Whole Blood 106 mg/dL (60-115)
[2021-07-06] VITALS (7 sets, daily range): BP systolic 118–134; BP diastolic 59–69; PULSE 80–96; RESP 19–20; TEMP 36–36.9; O2SAT 91–100
[2021-07-06] MEDS: Heparin Sodium,Porcine 5,000 UNIT/ML VIAL 5000 UNIT SUBCUT ×4 (01:24→23:53)
[2021-07-06 07:07] LABS: Anion Gap 12 (12-20); Blood Urea Nitrogen 16 mg/dL (9-16); Calcium 8.4 mg/dL (8.4-10.2); Carbon Dioxide 27 mmol/L (22-29); Chloride 92 mmol/L (96-108); Creatinine Clr Calc Pharmacy 61.6; Estimated Glomerular Filt Rate > 60; Glucose Random 110 mg/dL (60-115); Potassium 4.4 mmol/L (3.3-5.1); Sodium 127 mmol/L (135-145)
[2021-07-06 07:19] LABS: Glucose, Whole Blood 119 mg/dL (60-115)
[2021-07-06] MEDS: Albuterol/Iprat 2.5/0.5MG 3 ML AMPUL.NEB INHALE ×3 (07:21→21:28)
[2021-07-06] MEDS: Hydrocortisone Sod Succ/PF 100 MG VIAL 50 MG IVPUSH (10:33)
[2021-07-06] MEDS: Folic Acid 1 MG TABLET PO (10:34)
[2021-07-06] MEDS: Thiamine HCL 100 MG TABLET PO (10:34)
[2021-07-06 11:19] LABS: Glucose, Whole Blood 108 mg/dL (60-115)
--- NOTE | 2021-07-06 11:29 | PM.CNNEP ---
History of Present Illness Reason for Consult Consult date: 07/06/21 Reason for consult: Hyponatremia Chief Complaint Chief complaint: Hyponatremia History of Present Illness Narrative: Belia is a 65-year-old female? Kosovan-speaking only with a past medical history of congestive heart failure, COPD, DANO, CAD, diabetes, hypertension,? and ETOH abuse who presented to the emergency room with knee pain that worsens with movement. ? She denied any trauma to the right knee.? It was noted that patient was started? recently of prednisone for gout of her right wrist.?In the emergency the patient's vital signs stable,? but laboratory data showed? sodium of 116? ( patient baseline 122-126)? with no neurological? deficit.??She was started on normal saline and was admitted into the ICU for management hyponatremia?. Nephrology has been consulted to assist in her clinical care Review of Systems Review of Systems Yes all other systems are reviewed and are negative PMFSH Past Medical History Medical History Acute hyponatremia Alcohol use disorder Bipolar 1 disorder Bipolar I disorder Chronic hyponatremia Congestive heart failure COPD (chronic obstructive pulmonary disease) Coronary artery disease Diabetes Hypertension Osteoarthritis Schizophrenia Sleep apnea Surgical History Surgical History Hx of appendectomy Social History Social History Household Members: Family Housing: Apartment Do you presently have visiting nurse or other home services: No Unable to assess alcohol history related to: Unknown Alcohol intake: never Patient Tobacco Use Status: Current everyday Tobacco user Tobacco use type: Cigarette Cigarettes Per Day: 5 Years Smoked: 52 Smoked in Last 30 Days: Yes e-Cigarette/Vaping Use: Currently Using Patient Interested in Nicotine Replacement: Yes Patient Given Instructions on How to Stop Smoking: Yes Date Education Initiated: 07/05/21 Second Hand Smoke Exposure: Yes Use of substances other than those prescribed or required for medical reasons: Yes Substance Use Type: Marijuana Substance Use Frequency: Daily Last Used Substance: Days (ago) Currently Displaying Signs/Symptoms of Drug Intoxication Withdrawal: No Any prior treatment program specific to substance use: No Have you been hit, kicked, punched, or otherwise hurt by someone within the past year? If so, by whom?: No Do you feel safe in your current relationship?: Yes Is there a partner from a previous relationship who is making you feel unsafe now?: No Are you made to feel afraid or neglected: No Advance Directives: Yes Advance Directives on File: Yes Advance Directives Date on File: 10/10/20 Do you have thoughts of harming others: None Do you have a plan to hurt others: No Plan Recently lost weight without trying: No Nutrition Risks: No Nutritional Risk Patient : No : No Poor oral hygiene: No service: No Current occupational status: unemployed, disabled and other Meds Allergies Allergy/AdvReac Type Severity Reaction Status Date / Time advair Allergy Unknown Unknown Uncoded 03/25/21 20:12 paxil Allergy Unknown Unknown Uncoded 02/12/21 20:38 From PAXIL AdvReac Intermediate NAUSEA & Uncoded 02/12/21 20:38 VOMITING Active Medications: Current Medications Acetaminophen (Acetaminophen 325 Mg Tablet) 650 mg PO Q6H PRN PRN Reason: Pain, Moderate (Pain Scale 4-6 Albuterol/Ipratropium (Albuterol/Iprat 2.5/0.5mg 3 Ml Ampul.Neb) 3 ml INHALE RQ6H WHILE AWAKE [facility] Last Admin: 07/06/21 07:21 Dose: 3 ml Documented by: Folic Acid (Folic Acid 1 Mg Tablet) 1 mg PO DAILY [facility] Last Admin: 07/06/21 10:34 Dose: 1 mg Documented by: Heparin Sodium (Porcine) (Heparin Sodium,Porcine 5,000 Unit/Ml Vial) 5,000 unit SUBCUT Q8H [facility] Last Admin: 07/06/21 10:36 Dose: 5,000 unit Documented by: Hydrocortisone Sodium Succinate (Hydrocortisone Sod Succ/Pf 100 Mg Vial) 50 mg IVPUSH Q12H [facility] Last Admin: 07/06/21 10:33 Dose: 50 mg Documented by: Insulin Human Lispro (Insulin Lispro 100 Unit/Ml 3 Ml Vial) 0 unit SUBCUT QIDACHS [facility]; Protocol Last Admin: 07/06/21 10:37 Dose: Not Given Documented by: Lorazepam (Lorazepam 2 Mg/Ml Vial) 0.5 mg IVPUSH Q4H PRN PRN Reason: Alcohol Withdrawal Thiamine HCl (Thiamine Hcl 100 Mg Tablet) 100 mg PO DAILY [facility] Last Admin: 07/06/21 10:34 Dose: 100 mg Documented by: Home Medications Medication Instructions Recorded Confirmed Last Taken Type albuterol sulfate 90 mcg/actuation 2 puff INHALATION Q4-6H PRN 08/18/20 07/05/21 Unknown History aerosol inhaler (Ventolin HFA) aspirin 81 mg tablet,delayed 81 mg PO BEDTIME 08/18/20 07/05/21 Unknown History release fluticasone propionate 220 1 puff INHALATION BID 08/18/20 07/05/21 Unknown History mcg/actuation HFA aerosol inhaler (Flovent HFA) montelukast 10 mg tablet 10 mg PO QPM 08/18/20 07/05/21 Unknown History pravastatin 20 mg tablet 20 mg PO BEDTIME 10/10/20 07/05/21 Unknown History metformin 500 mg tablet 500 mg PO DAILY@08 11/04/20 07/05/21 Unknown History acetaminophen 650 mg 1 tab PO BID PRN 02/04/21 07/05/21 Unknown History tablet,extended release folic acid 1 mg tablet 1 tab PO QAM 02/04/21 07/05/21 Unknown History sennosides 8.6 mg tablet (senna) 1 tab PO BID PRN 02/04/21 07/05/21 Unknown History thiamine HCl (vitamin B1) 100 mg 1 tab PO QAM 02/04/21 07/05/21 Unknown History tablet citalopram 40 mg tablet 1 tab PO DAILY 05/05/21 07/05/21 Unknown History quetiapine 25 mg tablet 1 tab PO BID 07/05/21 07/05/21 Unknown History tramadol 50 mg tablet 50 - 100 mg PO Q6H PRN 07/05/21 07/05/21 Unknown History Physical Exam Vital Signs: Last Vital Signs Temp 97.5 F 07/06/21 11:00 Pulse 96 07/06/21 11:00 Resp 19 07/06/21 11:00 BP 131/62 07/06/21 11:00 Pulse Ox 98 07/06/21 11:00 Body Mass Index 29.8 Const General: no acute distress Neck Neck: Yes supple Resp Auscultation: diminished lung sounds Cardio Jugular venous distension: no JVD GI Palpation (GI): Soft to palpation Neuro General: moves all extremities Results Lab Results Result Diagrams: 07/05/21 07:28 07/06/21 06:00 Lab results: Chemistry 07/04/21 07/05/21 07/05/21 22:48 03:26 08:42 Sodium 116 L* 121 L 124 L Potassium 4.5 4.4 4.4 Carbon Dioxide 23 25 27 BUN 16 D 16 17 H Creatinine 1.17 1.09 0.97 Calcium 7.9 L 8.2 L 8.1 L Phosphorus 3.6 07/05/21 07/06/21 08:42 06:00 Sodium Cancelled 127 L Potassium Cancelled 4.4 Carbon Dioxide Cancelled 27 BUN Cancelled 16 Creatinine Cancelled 0.92 Calcium Cancelled 8.4 Phosphorus Hematology 07/04/21 07/05/21 22:48 07:28 WBC 10.7 8.0 Hgb 9.4 L 10.4 L Plt Count 198 D 224 Urinalysis 07/05/21 00:04 Urine Color YELLOW Urine Appearance CLEAR Urine pH 6.0 Ur Specific [place] <= 1.005 Urine Protein NEG Urine Glucose (UA) NEG Urine Ketones NEG Urine Blood NEG Urine Nitrite NEG Ur Leukocyte Esterase NEG Urine Studies 07/05/21 00:04 Urine Osmolality 122 L Assessment and Plan (1) Acute hyponatremia: Status: Acute Has H/O Hyponatremia Has risk factor for excess ADH Hyponatremia likely multifactorial Serum sodium improved appropriately No IV fluids; Fluid restriction now No indication for hypertonic saline/PO Urea Continue rest of current supportive care Labs AM. Shall closely F/U Procedures Date of Service Date of Service: 07/06/21
[2021-07-06] MEDS: Acetaminophen 325 MG TABLET 650 MG PO (12:24)
--- NOTE | 2021-07-06 13:29 | HO.PM.IMPN ---
Subjective Subjective Date of Service: 07/06/21 Interval History: Being followed for hyponatremia, gouty arthritis, alcohol use, patient complaining of left wrist and right knee pain, denies any fall, no trauma, not aware of diagnosis of gout, history obtained via camera operator, denies lightheadedness ,dizziness ,nausea, vomiting or tremors. Review of Systems General no headache no dizziness no fever chills. CVS no chest pain, no palpitation. Respiratory no cough, no sob. Gastrointestinal no nausea, no vomiting, no abdominal pain Review of Systems: Yes all other systems are reviewed and are negative Physical Exam Vital Signs: Vital Signs: Last Vital Signs Temp 97.5 F 07/06/21 11:00 Pulse 96 07/06/21 11:00 Resp 19 07/06/21 11:00 BP 131/62 07/06/21 11:00 Pulse Ox 98 07/06/21 11:00 Body Mass Index 29.8 General resting comfortably in no acute distress. Neck supple no JVD. CVS regular rate rhythm, Respiratory lungs clear to auscultation, no respiratory distress, no wheeze, no rhonchi. Gastrointestinal abdomen soft, nontender, bowel sounds audible, no guarding , no rigidity. Extremities rt knee swollen,warm, no hyperemia, limited range of motion due to pain,left wrist splint in place Neuro nonfocal , moving all 4 extremity speech clear. Skin no rash Psyche appropriate affect Objective Data Active Medications Acetaminophen (Acetaminophen 325 Mg Tablet) 650 mg PO Q6H PRN PRN Reason: Pain, Moderate (Pain Scale 4-6 Last Admin: 07/06/21 12:24 Dose: 650 mg Documented by: SIA Albuterol/Ipratropium (Albuterol/Iprat 2.5/0.5mg 3 Ml Ampul.Neb) 3 ml INHALE RQ6H WHILE AWAKE [facility] Last Admin: 07/06/21 07:21 Dose: 3 ml Documented by: DESMOND Aspirin (Aspirin Enteric Coated 81 Mg Tablet.) 81 mg PO BEDTIME [facility] Clonazepam (Clonazepam 0.5 Mg Tablet) 0.5 mg PO BID PRN PRN Reason: anxiety Folic Acid (Folic Acid 1 Mg Tablet) 1 mg PO DAILY [facility] Last Admin: 07/06/21 10:34 Dose: 1 mg Documented by: SIA Folic Acid (Folic Acid 1 Mg Tablet) 1 mg PO QAM [facility] Heparin Sodium (Porcine) (Heparin Sodium,Porcine 5,000 Unit/Ml Vial) 5,000 unit SUBCUT Q8H [facility] Last Admin: 07/06/21 10:36 Dose: 5,000 unit Documented by: SIA Insulin Human Lispro (Insulin Lispro 100 Unit/Ml 3 Ml Vial) 0 unit SUBCUT QIDACHS [facility]; Protocol Last Admin: 07/06/21 12:22 Dose: Not Given Documented by: SIA Non-Admin Reason: No Insulin Coverage Lorazepam (Lorazepam 2 Mg/Ml Vial) 0.5 mg IVPUSH Q4H PRN PRN Reason: Alcohol Withdrawal Metoprolol Succinate (Metoprolol Succinate Er 50 Mg Tab.Er.24h) 50 mg PO DAILY [facility]; Protocol Montelukast Sodium (Montelukast Sodium 10 Mg Tablet) 10 mg PO QPM [facility] Non-Formulary Medication (Citalopram) 1 tab PO DAILY [facility] Non-Formulary Medication (Fluticasone Propionate [Flovent Hfa]) 1 puff INHALE BID [facility] Omeprazole (Omeprazole 40 Mg Capsule.Dr) 40 mg PO DAILY@0630 [facility] Pravastatin Sodium (Pravastatin Sodium 20 Mg Tablet) 20 mg PO BEDTIME [facility] Prednisone (Prednisone 20 Mg Tablet) 40 mg PO DAILY [facility] Quetiapine Fumarate (Quetiapine Fumarate 25 Mg Tablet) 25 mg PO BID [facility] Senna (Sennosides 8.6 Mg Tablet) 8.6 mg PO BID PRN PRN Reason: constipation Thiamine HCl (Thiamine Hcl 100 Mg Tablet) 100 mg PO DAILY [facility] Last Admin: 07/06/21 10:34 Dose: 100 mg Documented by: SIA Thiamine HCl (Thiamine Hcl 100 Mg Tablet) 100 mg PO QAM [facility] Tramadol HCl (Tramadol Hcl 50 Mg Tablet) 50 mg PO Q6H PRN PRN Reason: Pain, Moderate Labs CBC & Chem 7: 07/05/21 07:28 07/06/21 06:00 Labs: Laboratory Results - last 24 hr 07/05/21 07/05/21 07/06/21 16:18 20:31 06:00 Anion Gap 12 Estim Creat Clear Calc 61.6 Estimated GFR > 60 POC Glucose 148 H 106 Random Glucose 110 Calcium 8.4 07/06/21 07/06/21 07:02 11:00 Anion Gap Estim Creat Clear Calc Estimated GFR POC Glucose 119 H 108 Random Glucose Calcium Assessment and Plan (1) Acute knee pain: Status: Acute (2) Acute hyponatremia: Status: Acute Assessment and Plan: 66-year-old female with pmhx of type 2 diabetese,htn, congestive heart failure, COPD, obstructive sleep apnea, coronary artery disease, bipolar diorder,schizophrenia recently diagnosed to have gout and placed on 40 mg of prednisone PO by ER physician presented to [facility] with symptoms of right knee pain and noted to have a low sodium of 116 with no neurological deficit patient was started on normal saline and was subsequently admitted to intensive care unit, patient's sodium improved therefore she was transferred to medical floor for continued monitoring and treatment. Acute on chronic Hyponatremia Likely due to beer potomania, sodium improved to 124 continue fluid restrictions previously patient was on sodium chloride tablets question compliance Follow BMP and obtain nephrology consultation due to chronic low-sodium. No evidence of SAGAR. Right knee pain, patient recently evaluated at [facility] with left wrist pain, right elbow pain and was diagnosed to have gout and started on prednisone 40 mg daily, in ICU patient was treated with Solu Cortef 50 mg twice daily, patient is not aware of diagnosis of gout will transition back to by mouth prednisone will obtain x-ray of right knee, will obtain PT eval since patient had difficulty with ambulation at home Resume home pain medication History of alcohol use Patient admits to drink beer 2-3 can 3-4 times per week, no evidence of alcohol withdrawal at present, continue as needed Ativan follow [facility] protocol Acute hypoxic respiratory failure resolved No acute COPD exacerbation chest x-ray showed no pneumonia question related to obesity hypoventilation, oxygenation improved will wean O2 History of chronic diastolic congestive heart failure no acute exacerbation History of COPD and obstructive sleep apnea uses CPAP, not on home oxygen Will wean oxygen, no COPD exacerbation noted. Continue home inhalers. History of hypertension on multiple antihypertensive at home currently blood pressure is soft will resume beta blockers and hold other medications follow BP closely. History of bipolar disorder/schizophrenia will resume home medication, no behavioral issues noted. DVT prophylaxis heparin subq Code status full code Quality Stroke Does the patient have a stroke diagnosis?: No VTE Prior VTE?: No VTE Risk Level:: Medical - moderate - high VTE Device Contraindication: Treatment Not Indicated VTE Drug Contraindication: N/A - Med Ordered
[2021-07-06 13:53] LABS: Uric Acid 7.5 mg/dL (2.4-5.7)
[2021-07-06 15:55] LABS: Glucose, Whole Blood 132 mg/dL (60-115)
[2021-07-06] MEDS: predniSONE 20 MG TABLET 40 MG PO (16:06)
[2021-07-06 19:43] LABS: Glucose, Whole Blood 187 mg/dL (60-115)
[2021-07-06] MEDS: Montelukast Sodium 10 MG TABLET PO (21:18)
[2021-07-06] MEDS: QUEtiapine Fumarate 25 MG TABLET PO (21:18)
[2021-07-06] MEDS: Pravastatin Sodium 20 MG TABLET PO (21:18)
[2021-07-06] MEDS: Insulin Lispro 100 UNIT/ML 3 ML VIAL SUBCUT (21:19)
[2021-07-06] MEDS: Fluticasone Propionate 250 MCG BLST.W.DEV 1 PUFF INHALE (21:38)
[2021-07-07] VITALS (11 sets, daily range): BP systolic 95–143; BP diastolic 63–73; PULSE 74–94; RESP 18–20; TEMP 36.2–37.8; O2SAT 90–99
[2021-07-07] MEDS: Omeprazole 40 MG CAPSULE.DR PO (05:35)
[2021-07-07 07:10] LABS: Anion Gap 9 (12-20); Blood Urea Nitrogen 12 mg/dL (9-16); Calcium 8.2 mg/dL (8.4-10.2); Carbon Dioxide 30 mmol/L (22-29); Chloride 95 mmol/L (96-108); Estimated Glomerular Filt Rate > 60; Glucose Random 117 mg/dL (60-115); Potassium 4.4 mmol/L (3.3-5.1); Sodium 130 mmol/L (135-145)
[2021-07-07 08:21] LABS: Glucose, Whole Blood 117 mg/dL (60-115)
[2021-07-07] MEDS: Albuterol/Iprat 2.5/0.5MG 3 ML AMPUL.NEB INHALE ×3 (08:28→19:23)
[2021-07-07] MEDS: Acetaminophen 325 MG TABLET 650 MG PO (08:54)
[2021-07-07] MEDS: Heparin Sodium,Porcine 5,000 UNIT/ML VIAL 5000 UNIT SUBCUT ×2 (08:54→17:56)
[2021-07-07] MEDS: Escitalopram Oxalate 20 MG TABLET PO (08:54)
[2021-07-07] MEDS: Folic Acid 1 MG TABLET PO ×2 (08:54)
[2021-07-07] MEDS: QUEtiapine Fumarate 25 MG TABLET PO ×2 (08:55→20:21)
[2021-07-07] MEDS: Thiamine HCL 100 MG TABLET PO ×2 (08:55)
[2021-07-07] MEDS: predniSONE 20 MG TABLET 40 MG PO (08:55)
[2021-07-07] MEDS: Aspirin Enteric Coated 81 MG TABLET.DR PO (08:55)
[2021-07-07] MEDS: Metoprolol Succinate ER 50 MG TAB.ER.24H PO (08:55)
[2021-07-07 11:40] LABS: Glucose, Whole Blood 156 mg/dL (60-115)
[2021-07-07] MEDS: Insulin Lispro 100 UNIT/ML 3 ML VIAL SUBCUT ×2 (11:47→20:22)
--- NOTE | 2021-07-07 13:04 | HO.PM.IMPN ---
Subjective Subjective Date of Service: 07/07/21 Interval History: Being followed for hyponatremia, gouty arthritis, alcohol use, feeling better, less right knee pain, denies left wrist pain, no other acute issues overnight, no history of chronic indwelling Dudley catheter History obtained via rolling attendant. Review of Systems General no headache, no dizziness no fever chills.? CVS no chest pain, no palpitation.? Respiratory no cough, no sob.? Gastrointestinal no nausea, no vomiting, no abdominal pain Review of Systems: Yes all other systems are reviewed and are negative Physical Exam Vital Signs: Vital Signs: Last Vital Signs Temp 100.0 F 07/07/21 11:42 Pulse 86 07/07/21 11:42 Resp 18 07/07/21 11:42 BP 134/73 07/07/21 11:42 Pulse Ox 91 L 07/07/21 11:42 Body Mass Index 29.8 General alert oriented x3,no acute distress. Neck supple no JVD. CVS regular rate rhythm, Respiratory lungs clear to auscultation, no respiratory distress, no wheeze, no rhonchi. Gastrointestinal abdomen soft, nontender, bowel sounds audible, no guarding , no rigidity. Extremities right knee swelling and warmth improved,no edema. Neuro nonfocal , speech clear. Skin no rash Psych appropriate affect Objective Data Active Medications Acetaminophen (Acetaminophen 325 Mg Tablet) 650 mg PO Q6H PRN PRN Reason: Pain, Moderate (Pain Scale 4-6 Last Admin: 07/07/21 08:54 Dose: 650 mg Documented by: DEQUAN Albuterol/Ipratropium (Albuterol/Iprat 2.5/0.5mg 3 Ml Ampul.Neb) 3 ml INHALE RQ6H WHILE AWAKE [facility] Last Admin: 07/07/21 08:28 Dose: 3 ml Documented by: DESMOND Aspirin (Aspirin Enteric Coated 81 Mg Tablet.) 81 mg PO DAILY [facility] Last Admin: 07/07/21 08:55 Dose: 81 mg Documented by: DEQUAN Clonazepam (Clonazepam 0.5 Mg Tablet) 0.5 mg PO BID PRN PRN Reason: anxiety Escitalopram Oxalate (Escitalopram Oxalate 20 Mg Tablet) 20 mg PO DAILY [facility] Last Admin: 07/07/21 08:54 Dose: 20 mg Documented by: DEQUAN Fluticasone Propionate (Fluticasone Propionate 250 Mcg Blst.W.Dev) 1 puff INHALE RBID [facility] Last Admin: 07/07/21 07:24 Dose: Not Given Documented by: DESMOND Non-Admin Reason: Patient Asleep Folic Acid (Folic Acid 1 Mg Tablet) 1 mg PO DAILY [facility] Last Admin: 07/07/21 08:54 Dose: 1 mg Documented by: DEQUAN Folic Acid (Folic Acid 1 Mg Tablet) 1 mg PO DAILY [facility] Last Admin: 07/07/21 08:54 Dose: 1 mg Documented by: DEQUAN Heparin Sodium (Porcine) (Heparin Sodium,Porcine 5,000 Unit/Ml Vial) 5,000 unit SUBCUT Q8H [facility] Last Admin: 07/07/21 08:54 Dose: 5,000 unit Documented by: DEQUAN Insulin Human Lispro (Insulin Lispro 100 Unit/Ml 3 Ml Vial) 0 unit SUBCUT QIDACHS [facility]; Protocol Last Admin: 07/07/21 11:47 Dose: 2 unit Documented by: DEQUAN Lorazepam (Lorazepam 2 Mg/Ml Vial) 0.5 mg IVPUSH Q4H PRN PRN Reason: Alcohol Withdrawal Metoprolol Succinate (Metoprolol Succinate Er 50 Mg Tab.Er.24h) 50 mg PO DAILY [facility]; Protocol Last Admin: 07/07/21 08:55 Dose: 50 mg Documented by: DEQUAN Montelukast Sodium (Montelukast Sodium 10 Mg Tablet) 10 mg PO BEDTIME [facility] Last Admin: 07/06/21 21:18 Dose: 10 mg Documented by: LONNIE Omeprazole (Omeprazole 40 Mg Capsule.Dr) 40 mg PO DAILY@0630 [facility] Last Admin: 07/07/21 05:35 Dose: 40 mg Documented by: LONNIE Pravastatin Sodium (Pravastatin Sodium 20 Mg Tablet) 20 mg PO BEDTIME [facility] Last Admin: 07/06/21 21:18 Dose: 20 mg Documented by: LONNIE Prednisone (Prednisone 20 Mg Tablet) 40 mg PO DAILY [facility] Stop: 07/08/21 09:01 Last Admin: 07/07/21 08:55 Dose: 40 mg Documented by: DEQUAN Quetiapine Fumarate (Quetiapine Fumarate 25 Mg Tablet) 25 mg PO BID [facility] Last Admin: 07/07/21 08:55 Dose: 25 mg Documented by: DEQUAN Senna (Sennosides 8.6 Mg Tablet) 8.6 mg PO BID PRN PRN Reason: constipation Thiamine HCl (Thiamine Hcl 100 Mg Tablet) 100 mg PO DAILY [facility] Last Admin: 07/07/21 08:55 Dose: 100 mg Documented by: DEQUAN Thiamine HCl (Thiamine Hcl 100 Mg Tablet) 100 mg PO DAILY [facility] Last Admin: 07/07/21 08:55 Dose: 100 mg Documented by: DEQUAN Tramadol HCl (Tramadol Hcl 50 Mg Tablet) 50 mg PO Q6H PRN PRN Reason: Pain, Moderate Labs CBC & Chem 7: 07/05/21 07:28 07/07/21 05:57 Labs: Laboratory Results - last 24 hr 07/06/21 07/06/21 07/06/21 06:00 15:48 19:36 Anion Gap Estim Creat Clear Calc Estimated GFR POC Glucose 132 H 187 H Random Glucose Uric Acid 7.5 H Calcium 07/07/21 07/07/21 07/07/21 05:57 08:15 11:17 Anion Gap 9 L Estim Creat Clear Calc 66.0 Estimated GFR > 60 POC Glucose 117 H 156 H Random Glucose 117 H Uric Acid Calcium 8.2 L Assessment and Plan (1) Acute knee pain: Status: Acute (2) Dementia: Status: Acute (3) Acute hyponatremia: Status: Acute Assessment and Plan: 66-year-old female with pmhx of type 2 diabetese,htn, congestive heart failure, COPD, obstructive sleep apnea, coronary artery disease, bipolar? diorder,schizophrenia recently diagnosed to have gout and placed on 40 mg of prednisone PO by ER physician presented to [facility] with symptoms of right knee pain and noted to have a low sodium of 116 with no neurological deficit patient was started on normal saline and was subsequently admitted to intensive care unit, patient's sodium improved therefore she was transferred to medical floor for continued monitoring and treatment. Acute on chronic Hyponatremia Likely due to beer potomania, sodium improved to 130 this a.m. No evidence of SAGAR, no need for sodium chloride tablets urea needed Strongly recommended to abstain from alcohol DC Dudley catheter, recommend out of bed to chair and ambulation Right knee pain, patient recently evaluated at [facility] with left wrist pain, right elbow pain and was diagnosed to have gout and started on prednisone 40 mg daily, in ICU patient was treated with Solu Cortef 50 mg twice daily, patient is not aware of diagnosis of gout X-ray right knee showed osteoarthritis and chronic knee effusion Elbow and wrist pain have resolved, patient likely has osteoarthritis, recommend weight reduction Tylenol for pain Follow PT eval Will finish total 5 day course of prednisone History of alcohol use Patient admits to drink beer 2-3 can 3-4 times per week, no evidence of alcohol withdrawal at present, continue as needed Ativan , obtain care team consult Acute hypoxic respiratory failure resolved No acute COPD exacerbation chest x-ray showed no pneumonia question related to obesity hypoventilation, oxygenation improved 91% on room air History of chronic diastolic congestive heart failure no acute exacerbation History of COPD and obstructive sleep apnea uses CPAP, no COPD exacerbation noted.? Continue home inhalers. History of hypertension on multiple antihypertensive at home currently blood pressure is soft continue beta blockers and hold other medications follow BP closely. History of bipolar disorder/schizophrenia will resume home medication, no behavioral issues noted. DVT prophylaxis heparin subq Code status full code Quality Stroke Does the patient have a stroke diagnosis?: No VTE Prior VTE?: No VTE Risk Level:: Medical - moderate - high VTE Device Contraindication: Treatment Not Indicated VTE Drug Contraindication: N/A - Med Ordered
--- NOTE | 2021-07-07 14:06 | PM.PNNEP ---
Subjective Subjective Date of Service: 07/07/21 Interval history: Events noted. All recent data reviewed. Physical Exam Vital Signs: Vital Signs: Last Vital Signs Temp 100.0 F 07/07/21 11:42 Pulse 86 07/07/21 11:42 Resp 18 07/07/21 11:42 BP 134/73 07/07/21 11:42 Pulse Ox 91 L 07/07/21 11:42 Body Mass Index 29.8 Const: General: no acute distress Eyes: EOM: EOMs intact bilaterally Neck: Neck: Yes supple Resp: Auscultation: diminished lung sounds Cardio: Rate: regular rate GI: Palpation (GI): Soft to palpation Neuro: General: moves all extremities Objective Data Labs CBC & Chem 7: 07/05/21 07:28 07/07/21 05:57 Labs: Laboratory Results - last 24 hr 07/06/21 07/06/21 07/07/21 15:48 19:36 05:57 Sodium 130 L Potassium 4.4 Chloride 95 L Carbon Dioxide 30 H Anion Gap 9 L BUN 12 Creatinine 0.86 Estim Creat Clear Calc 66.0 Estimated GFR > 60 POC Glucose 132 H 187 H Random Glucose 117 H Calcium 8.2 L 07/07/21 07/07/21 08:15 11:17 Sodium Potassium Chloride Carbon Dioxide Anion Gap BUN Creatinine Estim Creat Clear Calc Estimated GFR POC Glucose 117 H 156 H Random Glucose Calcium Procedures Date of Service Date of Service: 07/07/21 Assessment & Plan Assessment and plan (1) Acute hyponatremia: Status: Acute Assessment and Plan: Has H/O Hyponatremia Has risk factor for excess ADH Hyponatremia likely multifactorial Serum sodium improved appropriately No IV fluids; Fluid restriction now No indication for hypertonic saline/PO Urea Continue rest of current supportive care Labs AM. Shall closely F/U Time Spent With Patient Time: Total time spent is greater than 50% in coordination of care (as documented) at patient's floor/unit and/or counseling patient: Progress Note: Quality Stroke Does the patient have a stroke diagnosis?: No
--- NOTE | 2021-07-07 15:33 | MHC.CM.PN ---
CM LEFT A VM MESSAGE FOR PTS HCP, MIKO ([phone]) REQUESTING A RETURN CALL. OF NOTE: PTS HCP IS INVOKED
[2021-07-07 16:29] LABS: Glucose, Whole Blood 112 mg/dL (60-115)
[2021-07-07] MEDS: Fluticasone Propionate 250 MCG BLST.W.DEV 1 PUFF INHALE (19:23)
[2021-07-07 20:20] LABS: Glucose, Whole Blood 162 mg/dL (60-115)
[2021-07-07] MEDS: Montelukast Sodium 10 MG TABLET PO (20:21)
[2021-07-07] MEDS: Pravastatin Sodium 20 MG TABLET PO (20:22)
[2021-07-07] MEDS: clonazePAM 0.5 MG TABLET PO (20:22)
[2021-07-07] MEDS: traMADoL HCL 50 MG TABLET PO (20:27)
[2021-07-08] VITALS (8 sets, daily range): BP systolic 122–147; BP diastolic 65–76; PULSE 71–85; RESP 18–20; TEMP 36.1–37.1; O2SAT 91–98
[2021-07-08] MEDS: Heparin Sodium,Porcine 5,000 UNIT/ML VIAL 5000 UNIT SUBCUT ×3 (01:09→16:23)
[2021-07-08] MEDS: Omeprazole 40 MG CAPSULE.DR PO (05:28)
[2021-07-08] MEDS: traMADoL HCL 50 MG TABLET PO (05:30)
[2021-07-08 07:39] LABS: Glucose, Whole Blood 84 mg/dL (60-115)
[2021-07-08] MEDS: Albuterol/Iprat 2.5/0.5MG 3 ML AMPUL.NEB INHALE ×2 (07:47→15:43)
[2021-07-08] MEDS: Fluticasone Propionate 250 MCG BLST.W.DEV 1 PUFF INHALE (07:47)
[2021-07-08] MEDS: Escitalopram Oxalate 20 MG TABLET PO (09:15)
[2021-07-08] MEDS: Aspirin Enteric Coated 81 MG TABLET.DR PO (09:15)
[2021-07-08] MEDS: predniSONE 20 MG TABLET 40 MG PO (09:15)
[2021-07-08] MEDS: Thiamine HCL 100 MG TABLET PO (09:16)
[2021-07-08] MEDS: QUEtiapine Fumarate 25 MG TABLET PO (09:16)
[2021-07-08] MEDS: Folic Acid 1 MG TABLET PO (09:16)
[2021-07-08] MEDS: Metoprolol Succinate ER 50 MG TAB.ER.24H PO (09:17)
[2021-07-08 11:25] LABS: Anion Gap 11 (12-20); Blood Urea Nitrogen 14 mg/dL (9-16); Calcium 8.1 mg/dL (8.4-10.2); Carbon Dioxide 29 mmol/L (22-29); Chloride 93 mmol/L (96-108); Creatinine Clr Calc Pharmacy 61.6; Estimated Glomerular Filt Rate > 60; Glucose Random 93 mg/dL (60-115); Potassium 4.7 mmol/L (3.3-5.1); Sodium 128 mmol/L (135-145)
[2021-07-08 11:33] LABS: Glucose, Whole Blood 96 mg/dL (60-115)
--- NOTE | 2021-07-08 12:00 | MHC.RECOVRN ---
T/w attempted to meet with pt after consult placed to CARE Team for alcohol use. Chart reviewed. Pt quite tearful, wanting to discharge today. Pt unable to engage in conversation regarding recovery, focused on discharge. T/w provided pt with resources and contact information if questions or concerns arise. Discussed with Inge Maxwell APRN.
--- NOTE | 2021-07-08 12:43 | P.CDIC_ITS ---
CDI Concurrent Query Documentation Clarification: PHYSICIAN'S DOCUMENTATION REQUEST Date of Query: 07/08/21 1244 Patient Name: Belia Carlisle Admit Date: 07/05/21 Dear Doctor, A review of the medical record indicates additional documentation may be needed. Please review below and update the documentation accordingly. Risk Factors/Clinical Indicators/Treatments Per ED and H&P: Dementia Based on the above, could you clarify in the Progress Notes the appropriate diagnosis, if significant, that supports the above abnormalities and additional evaluation, monitoring, and/or treatment rendered: Please specify the type of Dementia (Vascular, Senile, Alzheimers, etc) * Other (please specify) * Unable to determine Use of terms such as suspected, likely, concern for, or probable (associated with a specific diagnosis that is being evaluated, monitored, or treated as if it exists) are acceptable and can be coded in the inpatient setting, when documented at the time of discharge. Thank you, Luna Mathew RN Extension:[phone] Please use your independent medical judgment in providing your response. THIS QUERY IS PART OF THE PERMANENT MEDICAL RECORD Provider Response: Other Other Diagnosis: unspecified dementia
--- NOTE | 2021-07-08 13:13 | MHC.CM.PN ---
pt to be dcd today at 4;00 TO ID JAY VIA BLS MESSAGE LEFT FOR HCP MIKO AT [phone]
--- NOTE | 2021-07-08 14:00 | P.DS_ITS ---
DS: Providers Provider Date of Service: 07/08/21 Date of admission: 07/05/21 00:19 Primary care physician: Unknown Physician Consults: 07/05/21 21:26 Consult to Nephrology Routine Consulting Provider: Juvenal Lindsay Reason for consultation: Hyponatremia 07/06/21 14:02 Consult to Nephrology Routine Consulting Provider: Juvenal Lindsay Reason for consultation: hyponatremia Has provider been notified: No 07/07/21 08:52 Consult to Care Team Routine Comment: Reason for consultation: etoh use 07/07/21 13:04 Consult to Care Team Routine Comment: Reason for consultation: alcohol use DS: Diagnosis Discharge Diagnosis (1) Acute hyponatremia: Status: Acute DS: Summary Hospital Course Hospital Course: History of presenting illness 65-year-old female? Chinese-speaking only with a past medical history of congestive heart failure, COPD, DANO, CAD, diabetes, hypertension,? and ETOH abuse who presented to the emergency room With complaints of knee pain.? She reported severe pain to her right knee? that worsens with movement. ? She denied any trauma to the right knee.? It was noted that patient was started? recently of prednisone for gout of her right wrist.?In the emergency the patient's vital signs stable,? but laboratory data showed? sodium of 116? ( patient baseline 122-126)? with no neurological? deficit.??She was started on normal saline. And admitted to ICU for management hyponatremia? Hospital course 66-year-old female with pmhx of type 2 diabetese,htn, congestive heart failure, COPD, obstructive sleep apnea, coronary artery disease, bipolar disorder, schizophrenia recently diagnosed to have gout and placed on 40 mg of prednisone PO by ER physician presented to [facility] with symptoms of right knee pain and noted to have a low sodium of 116 with no neurological deficit patient was started on normal saline and was subsequently admitted to intensive care unit, patient's sodium improved therefore she was transferred to medical floor for continued monitoring and treatment. Acute on chronic Hyponatremia Likely due to beer potomania, sodium improved to 128 , patient seen by perioperative tech and has been started on 2 g of sodium chloride tablets t.i.d., she is recommended 1.5 L of fluid restriction she has been strongly recommended to abstain from alcohol her renal function remains stable. Right knee pain, patient recently evaluated at [facility] with left wrist pain, right elbow pain and was diagnosed to have gout and started on prednisone 40 mg daily, in ICU patient was treated with Solu Cortef 50 mg twice daily, X-ray right knee showed osteoarthritis and chronic knee effusion, right knee pain has significantly improved her elbow and wrist pain has resolved likely patient has osteoarthritis recommend weight reduction Tylenol for pain, patient has finish total 5 day course of prednisone, she is being followed by orthopedic surgeon and has recommended bilateral knee and hip replacement. Patient admits to drink beer 2-3 can 3-4 times per week, no evidence of alcohol withdrawal noted, she has been strongly advised to abstain from alcohol . Acute hypoxic respiratory failure resolved, she had no evidence of acute COPD exacerbation chest x-ray showed no pneumonia question related to obesity hypoventilation, oxygenation improved 91% on room air, History of chronic diastolic congestive heart failure no acute exacerbation noted continue Lasix low-dose History of hypertension BP stable continue metoprolol. History of bipolar disorder/schizophrenia no behavioral issues noted, continue home medications Disposition patient seen by Physical therapy and since she does not participate with therapy with multiple falls at home with poor safety awareness physical therapy recommended long-term care, and recommended out of bed to recliner with nursing staff for all meals. Time Spent with Patient Time attestation: Total time spent providing and/or coordinating discharge services: Discharge coordination time: Greater than 30 minutes Quality: Stroke Does the patient have a stroke diagnosis?: No Physical Exam Vital Signs: Vital Signs: Last Vital Signs Temp 98.0 F 07/08/21 11:25 Pulse 71 07/08/21 11:25 Resp 18 07/08/21 11:25 BP 130/65 07/08/21 11:25 Pulse Ox 94 07/08/21 11:25 Body Mass Index 29.8 General alert orie nted x3,no acute d istress.? Neck? goldberg pple no JVD. CVS? regular rate rhyth m, Respiratory vanessa gs clear to auscul tation, no respira tory distress, no wheeze, no rhonchi . Gastrointestinal abdomen soft, non tender, bowel vivienne nds audible, no gu arding , no rigidi ty. Extremities ri ght knee swelling and warmth improve d,no edema. Neuro nonfocal , speech clear. Skin no yudelka h Psych appropriat e affect DS: Data Data Completed and Pending Completed studies during hospitalization [Text1]: Procedures Detoxification Services for Substance Abuse Treatment (05/01/21) Insertion of Infusion Device into Superior Vena Cava, Percutaneous Approach (05/01/21) Labs on day of discharge: Laboratory Results - last 24 hr 07/07/21 07/07/21 07/08/21 15:25 20:10 07:32 Sodium Potassium Chloride Carbon Dioxide Anion Gap BUN Creatinine Estim Creat Clear Calc Estimated GFR POC Glucose 112 162 H 84 Random Glucose Calcium 07/08/21 07/08/21 10:54 11:27 Sodium 128 L Potassium 4.7 Chloride 93 L Carbon Dioxide 29 Anion Gap 11 L BUN 14 Creatinine 0.92 Estim Creat Clear Calc 61.6 Estimated GFR > 60 POC Glucose 96 Random Glucose 93 Calcium 8.1 L Discharge Plan Discharge Patient Disposition: [facility] Discharge Diagnosis: Acute hyponatremia Referrals: hazel fontenot [Other] - 1 Week Physician,Unknown J [Primary Care Provider] - 1 Week Discharge Medications: Continued aspirin 81 mg tablet,delayed release (DR/EC) 81 mg PO BEDTIME RF: 0 montelukast 10 mg tablet 10 mg PO QPM RF: 0 Flovent HFA 220 mcg/actuation HFA aerosol inhaler 1 puff inhalation BID RF: 0 albuterol sulfate [Ventolin HFA] 90 mcg/actuation HFA aerosol inhaler 2 puff inhalation Q4-6H PRN (Reason: Shortness Of Breath Or Wheezing) RF: 0 pravastatin 20 mg Tablet 20 mg PO BEDTIME RF: 0 citalopram 40 mg tablet 1 tab PO DAILY RF: 0 sodium chloride 1 gram Tablet 2 g PO TID 10 Days Qty: 60 RF: 0 omeprazole 40 mg Capsule,Delayed Release(Dr/Ec) 40 mg PO DAILY@0630 30 Days Qty: 30 RF: 0 clonazepam 1 mg Tablet 0.5 mg PO BID PRN (Reason: anxiety) Qty: 0 RF: 0 furosemide [Lasix] 20 mg tablet 10 mg PO DAILY Qty: 30 RF: 0 metformin 500 mg tablet 500 mg PO DAILY@08 RF: 0 metoprolol succinate 50 mg Tablet Extended Release 24 Hr 50 mg PO DAILY 30 Days Qty: 30 RF: 0 sennosides [senna] 8.6 mg tablet 1 tab PO BID PRN (Reason: constipation) RF: 0 thiamine HCl (vitamin B1) 100 mg tablet 1 tab PO QAM RF: 0 acetaminophen 650 mg tablet extended release 1 tab PO BID PRN (Reason: pain) RF: 0 folic acid 1 mg tablet 1 tab PO QAM RF: 0 quetiapine 25 mg tablet 1 tab PO BID RF: 0 Changed tramadol 50 mg tablet 50 mg PO Q6H PRN (Reason: Pain, Moderate) Qty: 0 RF: 0 Discontinued hydralazine 25 mg Tablet 25 mg PO TID 30 Days Qty: 90 RF: 0 amlodipine 10 mg Tablet 10 mg PO DAILY 30 Days Qty: 30 RF: 0 prednisone 20 mg tablet 40 mg PO DAILY 5 Days Qty: 10 RF: 0 Discharge Orders: Discharge Order (Routine); Ordered 07/08/21 Ordered By: Malia Saravia Diet: diabetic diet and low fat, low cholesterol Activity on Discharge: As tolerated Stand Alone Forms: Patient Portal Discharge page Activity Restrictions/Additional Instructions: Continue the prednisone as prescribed yesterday. Use tramadol as prescribed for pain. Follow-up with primary care physician. Care Plan Goals: Strongly recommend to abstain from alcohol, follow low-calorie diet /follow-up with orthopedic surgeon for possible knee joint replacement, take Tylenol and Ultram for joint pain Take sodium chloride tablets 2 g t.i.d. and restrict 1.5 L of by mouth fluid Check BMP in 1 week Health Concerns: Continue all home medications as prescribed follow blood pressure closely Use CPAP as before at night Plan of Treatment: Outpatient follow-up with primary care physician in next 7-10 days Assessment: As above Patient Instructions: Arthralgia (ED) Discharge Date/Time: 07/08/21 17:52
[2021-07-08 14:23] LABS: COVID-19 Test Negative (Negative)
[2021-07-08 16:17] LABS: Glucose, Whole Blood 168 mg/dL (60-115)
[2021-07-08] MEDS: Insulin Lispro 100 UNIT/ML 3 ML VIAL SUBCUT (16:23)
== END 2021-07-08 17:52 | disposition skilled nursing facility (03) | DRG 641 ==
LOC: HO.ED 07-05 00:39 → HO.ICU 07-05 00:40 → HO.IMC 07-05 12:26
PROVIDERS: Emergency Medicine; Internal Medicine; Admitting Provider Registered Nurse Community Health; Emergency Provider Emergency Medicine; Visit Provider Hospitalist
DX: E87.1 Hypo-osmolality and hyponatremia (principal); N17.9 Acute kidney failure, unspecified; I50.32 Chronic diastolic (congestive) heart failure; I11.0 Hypertensive heart disease with heart failure; F17.210 Nicotine dependence, cigarettes, uncomplicated; Z20.822 Contact with and (suspected) exposure to COVID-19; F04 Amnestic disorder due to known physiological condition; G47.33 Obstructive sleep apnea (adult) (pediatric); Z99.89 Dependence on other enabling machines and devices; F03.90 Unspecified dementia, unspecified severity, without behavioral disturbance, psychotic disturbance, mood disturbance, and anxiety; M10.9 Gout, unspecified; R94.31 Abnormal electrocardiogram [ECG] [EKG]; I25.10 Atherosclerotic heart disease of native coronary artery without angina pectoris; F31.9 Bipolar disorder, unspecified; F20.9 Schizophrenia, unspecified; Z71.6 Tobacco abuse counseling; Z79.51 Long term (current) use of inhaled steroids; Z79.82 Long term (current) use of aspirin; Z79.84 Long term (current) use of oral hypoglycemic drugs; Z79.899 Other long term (current) drug therapy
CPT/HCPCS: 36415; 71045; 73564; 80048; 80053; 81003; 82077; 82947; 83735; 83930; 83935; 84100; 84300; 84550; 85025; 87635; 93005; 94640; 97162; 99283; 99284; 99285; C1758

== ENCOUNTER 2021-10-11 09:56 | Emergency (ER) | payer MEDICARE, MEDICAID, SELFPAY ==
[2021-10-11 10:28] VITALS: BP 110/68; BP 126/60; PULSE 84; PULSE 87; RESP 18; TEMP 36.4; O2SAT 95; O2SAT 98; BMI 27.6
--- NOTE | 2021-10-11 14:54 | PC.NURSE ---
patient refusing to be seen after a long wait and called a taxi to bring her home, refusing labs
== END 2021-10-11 18:30 | disposition left against medical advice (07) ==
PROVIDERS: Emergency Provider Emergency Medicine
DX: R51.9 Headache, unspecified (principal); Z91.81 History of falling
CPT/HCPCS: 99282

== ENCOUNTER 2021-11-12 12:15 | Emergency (ER) | payer MEDICARE, MEDICAID, SELFPAY ==
--- NOTE | ~2021-11-12 | US_ITS ---
EXAMINATION: US VENOUS ULTRASOUND WITH DOPPLER LOWER EXTREMITY, BILATERAL CLINICAL INFORMATION: Bilateral lower extremity edema and pain COMPARISON: None TECHNIQUE: Ultrasound of the deep veins is performed from the hip to the calf with compression sonography and color and pulse Doppler assessment. Spectral analysis with color-flow imaging is performed. FINDINGS: RIGHT: There is normal venous compression and respiratory variation and augmented flow. The visualized common femoral vein, superficial femoral vein, profunda femoral vein, popliteal vein, and the trifurcation region shows no evidence of deep venous thrombosis. There is no significant popliteal fossa cyst. LEFT: There is normal venous compression and respiratory variation and augmented flow. The visualized common femoral vein, superficial femoral vein, profunda femoral vein, popliteal vein, and the trifurcation region shows no evidence of deep venous thrombosis. The left peroneal vein was not well visualized secondary to marked edema. There is no significant popliteal fossa cyst. If the patient's symptoms persist, followup ultrasound in 5 days 7 days might be of value to exclude proximal propagation from a non-visualized calf vein. US/US venous duplex LE BI IMPRESSION: No DVT demonstrated in either lower extremity.
--- NOTE | ~2021-11-12 | XR_ITS ---
EXAMINATION: XR CHEST CLINICAL INFORMATION: Extremity swelling COMPARISON: July 05, 2021 TECHNIQUE: 2 views of the chest were obtained. FINDINGS: No significant abnormality is noted involving the heart, lungs, mediastinum, or soft tissues. There is severe bilateral shoulder degenerative change right greater than left. XR/XR chest 2V IMPRESSION: No acute disease.
--- NOTE | ~2021-11-12 | CT_ITS ---
EXAMINATION: CT HEAD WITHOUT CONTRAST CT CERVICAL SPINE WITHOUT CONTRAST CLINICAL INFORMATION: Status post fall with head and neck injury. COMPARISON: CT head and cervical spine dated from 05/01/2021. TECHNIQUE: Contiguous axial imaging was performed from the skull base to vertex without intravenous administration of contrast. Contiguous axial imaging was performed from the upper chest through the skull base without intravenous administration of contrast. Coronal and sagittal reformats were obtained at the acquisition workstation. This CT examination was performed using dose optimization techniques as appropriate, variously including the following: *Automated exposure control *Adjustment of mA and/or kV according to patient size (this includes techniques or standardized protocols for targeted exams where dose is matched to indication/reason for exam; i.e. extremities or head) *Use of iterative reconstruction technique DLP: 292 mGy-cm FINDINGS: Head: There is no evidence of acute intracranial hemorrhage or edematous territorial infarction. Scattered hypoattenuation in the periventricular and deep white matter are consistent with moderate microangiopathy. Fitch-white matter differentiation is preserved. Proportional prominence of the ventricles and sulcal spaces. No evidence for obstructive hydrocephalus. No abnormal mass effect or midline shift. Enlarged empty sella turcica is unchanged. No extra-axial fluid collections. No acute soft tissue or osseous abnormalities. Bilateral mastoid effusions with postoperative changes in the left mastoid. Mild mucosal thickening of the paranasal sinuses with a small mucous retention cyst in the right maxillary sinus. Cervical Spine: Evaluation is somewhat limited due to motion. The atlantooccipital and atlantoaxial articulations remain well aligned. Straightening of the normal cervical lordosis. Otherwise, there is anatomic alignment of the vertebral bodies and posterior elements. No evidence of acute fracture or subluxation. There is redemonstration of severe multilevel cervical spondylosis with very prominent anterior overhanging osteophytes. There is no prevertebral soft tissue swelling. The thyroid gland and remaining cervical soft tissues are normal in appearance. The lung apices demonstrate no abnormalities. CT/CT cervical spine wo con IMPRESSION: 1. No acute intracranial pathology. 2. No acute cervical spinal fractures or malalignment. 3. Bilateral mastoid effusions with postoperative changes in the left mastoid. 4. Severe multilevel cervical spondylosis is again noted.
--- NOTE | ~2021-11-12 | CT_ITS ---
EXAMINATION: CT ANGIOGRAM OF THE CHEST WITH AND WITHOUT CONTRAST (CT PULMONARY ANGIOGRAM FOR PE) CLINICAL INFORMATION: Lower extremity edema and shortness of breath. COMPARISON: CT chest dated from 10/09/2020. TECHNIQUE: Prior to contrast administration, noncontrast localization images were obtained. Subsequently, multidetector volumetric imaging was performed from the thoracic inlet to below the diaphragms following the administration of 58 mL Omnipaque 350 intravenous contrast. No contrast reaction reported Sagittal, coronal, and MIP oblique sagittal reformatted images were obtained on the CT workstation, uploaded to PACS, and reviewed. This CT examination was performed using dose optimization techniques as appropriate, variously including the following: *Automated exposure control *Adjustment of mA and/or kV according to patient size (this includes techniques or standardized protocols for targeted exams where dose is matched to indication/reason for exam; i.e. extremities or head) *Use of iterative reconstruction technique Total exam dose-length product 339 mGy-cm FINDINGS: QUALITY OF STUDY/CONTRAST BOLUS: Suboptimal. PULMONARY ARTERIES: No central pulmonary emboli. Evaluation of segmental branches is limited due to motion and a few nonocclusive filling defects in the right lower lobe, for instance images 347, 311 and 304 could be artifactual. THORACIC AORTA: No aneurysm or dissection. Atherosclerotic disease. LUNG: Evaluation of small pulmonary nodules is significantly limited due to motion. No pulmonary mass. No focal airspace opacities. The central airways are patent. PLEURA: No pleural effusion or pneumothorax. MEDIASTINUM: Heart is within upper limits of normal. No pericardial effusion. Coronary calcifications. No hilar or mediastinal lymphadenopathy. No evidence of septal bowing or right heart strain. CHEST WALL/AXILLA: No axillary or internal mammary lymphadenopathy. OSSEOUS STRUCTURES: No acute or suspicious osseous abnormality. UPPER ABDOMEN: Unremarkable. No reflux of contrast into the hepatic veins to suggest elevated right heart pressures. CT/CT angio chest PE protocol IMPRESSION: No central pulmonary emboli. As above, evaluation of segmental branches is extremely limited due to motion and a few nonocclusive filling defects in the right lower lobe could be artifactual. If indicated, consider repeat examination or further evaluation with a V/Q nuclear medicine study. No focal airspace opacities. VTE: indeterminate This result was discussed with ALICIA Oconnell at 11/12/2021 9:09 PM and it was ascertained that the content of the report was understood at the time of direct communication.
[2021-11-12 12:27] VITALS: BP 116/59; BP 124/86; PULSE 74; PULSE 76; RESP 18; TEMP 36.9; O2SAT 100; BMI 26.9
--- NOTE | 2021-11-12 13:06 | ECG_ITS ---
Test Reason : SOB Blood Pressure : / mmHG Vent. Rate : 092 BPM Atrial Rate : 092 BPM P-R Int : 144 ms QRS Dur : 084 ms QT Int : 386 ms P-R-T Axes : 063 -10 030 degrees QTc Int : 477 ms Normal sinus rhythm Low voltage QRS ST & T wave abnormality, consider anterior ischemia Prolonged QT Abnormal ECG When compared with ECG of 05-JUL-2021 01:29, Nonspecific T wave abnormality now evident in Lateral leads Referred By: Olga Chandra Electronically Signed By:CAMPOS KELLER MD
[2021-11-12] MEDS: Albuterol Sulfate (0.083%) 2.5 MG/3 ML VIAL.NEB 10 MG INHALE (13:53)
[2021-11-12 13:54] VITALS: PULSE 91; RESP 21; O2SAT 91
[2021-11-12] MEDS: Acetaminophen 325 MG TABLET 975 MG PO (14:07)
[2021-11-12 14:12] LABS: MANUAL DIFF FLAG NO
[2021-11-12 14:14] LABS: Basophils Percent Auto 0.2 % (0-2); Eosinophils Percent Auto 0.4 % (0-4); Hematocrit 23.2 % (37.0-47.0); Hemoglobin 8.2 g/dl (12.0-16.0); Imm Gran Abs Auto 0.02 X10*3/uL (0.00-0.03); Imm Gran Pct Auto 0.4 % (0.0-0.4); Lymphocytes Absolute Auto 1.4 X10*3/uL (1.2-4.9); Lymphocytes Percent Auto 25.5 % (20-40); Mean Corpuscular HGB Conc 35.3 g/dl (31.0-35.0); Mean Corpuscular Hemoglobin 33.1 pg (27.0-33.0); Mean Corpuscular Volume 93.5 fL (80.0-98.0); Mean Platelet Volume 8.9 fL (9.4-12.3); Monocytes Absolute Auto 0.7 X10*3/uL (0.1-1.2); Monocytes Percent Auto 12.8 % (2-11); Neutrophils Absolute Auto 3.4 x10*3/uL (2.0-8.3); Neutrophils Percent Auto 60.7 % (45-73); Platelet Count 251 X10*3/uL (160-400); Red Blood Count 2.48 X10*6/uL (4.20-5.50); Red Cell Distribution Width 13.8 % (11.0-16.0); White Blood Count 5.5 X10*3/uL (4.8-10.8)
[2021-11-12 14:26] LABS: Prothrombin Time 10.9 SEC (9.9-13.0)
[2021-11-12 14:27] LABS: COVID-19 Test Negative (Negative); IDNOW Serial# 9DD0AD1C
[2021-11-12 14:30] LABS: Alanine Aminotransferase 12 U/L (0-31); Albumin Level 2.5 g/dL (3.5-5.0); Alkaline Phosphatase 104 U/L (39-117); Anion Gap 9 (12-20); Aspartate Amino Transferase 28 U/L (5-31); Bilirubin Total < 0.2 mg/dL (0.0-1.0); Blood Urea Nitrogen 12 mg/dL (9-16); Calcium 8.3 mg/dL (8.4-10.2); Carbon Dioxide 26 mmol/L (22-29); Chloride 97 mmol/L (96-108); Creatinine Clr Calc Pharmacy 61.9; Estimated Glomerular Filt Rate > 60; Glucose Random 85 mg/dL (60-115); Potassium 4.5 mmol/L (3.3-5.1); Sodium 127 mmol/L (135-145)
[2021-11-12 14:33] LABS: B Type Natriuretic Peptide 724 pg/mL (<100)
--- NOTE | 2021-11-12 14:43 | ED.GENADULT ---
HPI - General Adult General Chief complaint: General Medical <ALICIA Hanson - Last Filed: 11/12/21 18:11> Stated complaint: UPPER AND LOWER EXT SWELLING PER EMS <ALICIA Hanson - Last Filed: 11/12/21 18:11> Time Seen by Provider: 11/12/21 12:27 <ALICIA Hanson - Last Filed: 11/12/21 18:11> Source: patient and EMS <ALICIA Hanson Last Filed: 11/12/21 18:11> Mode of arrival: EMS <ALICIA Hanson Last Filed: 11/12/21 18:11> Limitations: language barrier ([place] speaking) and other (Poor historian) <ALICIA Hanson Last Filed: 11/12/21 18:11> History of Present Illness HPI narrative: 66-year-old female with a past medical history of dementia, 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 Patient tells me that this morning at 11:00 when she got up from her chair and went to walk with her walker when she felt dizzy and fell backwards hitting her head. She denies loss of consciousness. She is not on any blood thinners. She reports that there was no prolonged down time. She reports that this morning when her nurse came she told her nurse that she fell and the nurse told her that it was possibly due to low blood sugar and sent her here for further evaluation treatment. Although per the triage note it appears that the nurse actually sent her here for edema to upper and lower extremities. Patient denies any dizziness at this time, changes in vision, headache, neck pain/stiffness, trouble swallowing or breathing, sore throat, cough, chest pain or shortness of breath, dyspnea on exertion, orthopnea, palpitations, paresthesias, bladder/vomiting/diarrhea constipation, abdominal pain, rashes, recent travel or sick complaints or concerns at this time <ALICIA Hanson - Last Filed: 11/12/21 18:11> MD complaint: Fall with head injury and extremity edema <ALICIA Hanson - Last Filed: 11/12/21 18:11> Related Data Home medications: Home Medications Medication Instructions Recorded Confirmed albuterol sulfate 90 mcg/actuation 2 puff INHALATION Q4-6H PRN 08/18/20 07/05/21 aerosol inhaler (Ventolin HFA) aspirin 81 mg tablet,delayed 81 mg PO BEDTIME 08/18/20 07/05/21 release fluticasone propionate 220 1 puff INHALATION BID 08/18/20 07/05/21 mcg/actuation HFA aerosol inhaler (Flovent HFA) montelukast 10 mg tablet 10 mg PO QPM 08/18/20 07/05/21 pravastatin 20 mg tablet 20 mg PO BEDTIME 10/10/20 07/05/21 metformin 500 mg tablet 500 mg PO DAILY@08 11/04/20 07/05/21 acetaminophen 650 mg 1 tab PO BID PRN 02/04/21 07/05/21 tablet,extended release folic acid 1 mg tablet 1 tab PO QAM 02/04/21 07/05/21 sennosides 8.6 mg tablet (senna) 1 tab PO BID PRN 02/04/21 07/05/21 thiamine HCl (vitamin B1) 100 mg 1 tab PO QAM 02/04/21 07/05/21 tablet citalopram 40 mg tablet 1 tab PO DAILY 05/05/21 07/05/21 quetiapine 25 mg tablet 1 tab PO BID 07/05/21 07/05/21 Previous Rx's Medication Instructions Recorded metoprolol succinate 50 mg 50 mg PO DAILY 30 Days #30 tab 11/08/20 tablet,extended release 24 hr clonazepam 1 mg tablet 0.5 mg PO BID PRN #0 tab 05/10/21 furosemide 20 mg tablet (Lasix) 10 mg PO DAILY #30 tab 05/10/21 omeprazole 40 mg capsule,delayed 40 mg PO DAILY@0630 30 Days #30 cap 05/10/21 release sodium chloride 1 gram tablet 2 g PO TID 10 Days #60 tab 05/10/21 tramadol 50 mg tablet 50 mg PO Q6H PRN #0 tab 07/08/21 spironolactone 25 mg tablet 25 mg PO DAILY #30 tab 11/12/21 <ALICIA Hanson Last Filed: 11/12/21 18:11> Allergies/adverse reactions: Allergies Allergy/AdvReac Type Severity Reaction Status Date / Time advair Allergy Unknown Unknown Uncoded 11/12/21 12:38 paxil Allergy Unknown Unknown Uncoded 11/12/21 12:38 From PAXIL AdvReac Intermediate NAUSEA & Uncoded 11/12/21 12:38 VOMITING <ALICIA Hanson Last Filed: 11/12/21 18:11> Review of Systems Review of Systems: Constitutional : No Weight loss, No Fever, No Chills, No Night Sweats, No Fatigue, No Malaise ENT/Mouth : No Hearing loss, No Ear Pain, No Nasal Congestion, No Sinus Pain, No Hoarseness, No sore throat, No Rhinorrhea, No Swallowing Difficulty Eyes: No Eye Pain, No Swelling, No Redness, No Foreign Body, No Discharge, No Vision Changes Cardiovascular : No Chest Pain, No SOB, No Dyspnea on Exertion, No Orthopnea, No Edema, No Palpitations Respiratory : No Cough, No Sputum, No Wheezing, No Smoke Exposure, No Dyspnea Gastrointestinal : No Nausea, No Vomiting, No Diarrhea, No Constipation, No abdominal Pain, No Hematochezia, No Melena Genitourinary : no irregular bleeding, No Dysuria, No Urinary Frequency, No Hematuria, No Urinary Incontinence, No Urgency, No Flank Pain, No Urinary Flow Changes, No Hesitancy Musculoskeletal : + extremity edema, No joint pain, No Myalgias, No Joint Swelling Skin : No Skin Lesions, No rash Neuro : + Head Injury no LOC, + resolved Dizziness, No Weakness, No Numbness, No Paresthesias, No Loss of Consciousness, No Headache Psych : No Anxiety/Panic, No Depression, No SI/HI/AH/VH, No Social Issues, Heme/Lymph: No Bruising, No Bleeding,No Lymphadenopathy Endocrine : No Polyuria, No Polydipsia, No Temperature Intolerance <ALICIA Hanson Last Filed: 11/12/21 18:11> Yes all other systems are reviewed and are negative <ALICIA Hanson Last Filed: 11/12/21 18:11> [facility] Past Medical History Attestation statement: The following information was validated with the patient. <ALICIA Hanson - Last Filed: 11/12/21 18:11> Medical History: Medical History Acute hyponatremia Alcohol use disorder Bipolar 1 disorder Bipolar I disorder Chronic hyponatremia Congestive heart failure COPD (chronic obstructive pulmonary disease) Coronary artery disease Dementia Diabetes Hypertension Korsakoff disease Osteoarthritis Schizophrenia Sleep apnea <ALICIA Hanson - Last Filed: 11/12/21 18:11> Surgical History: Surgical History Hx of appendectomy <ALICIA Hanson - Last Filed: 11/12/21 18:11> Social History Social History: Social History Household Members: Family Housing: Apartment Do you presently have visiting nurse or other home services: No Unable to assess alcohol history related to: Unknown Alcohol intake: never Patient Tobacco Use Status: Current everyday Tobacco user Tobacco use type: Cigarette Cigarettes Per Day: 5 Years Smoked: 52 e-Cigarette/Vaping Use: Currently Using Second Hand Smoke Exposure: Yes Substance Use Type: Marijuana Advance Directives: Yes Advance Directives on File: Yes Advance Directives Date on File: 10/10/20 service: No Current occupational status: unemployed, disabled and other <ALICIA Hanson - Last Filed: 11/12/21 18:11> Physical Exam ED Vital Signs: Vital Signs - 24 hr 11/12/21 12:27 11/12/21 13:54 11/12/21 15:33 Temperature 98.4 F 98.2 F Pulse Rate 74 91 93 Respiratory Rate 18 21 H 18 Blood Pressure 116/59 L 104/56 L Pulse Oximetry 100 98 11/12/21 18:00 11/12/21 21:36 Temperature 98.2 F Pulse Rate 75 78 Respiratory Rate 22 H 20 Blood Pressure 104/54 L 107/62 Pulse Oximetry 97 99 BMI result Body Mass Index 26.9 vital signs have been reviewed as normal and appeared to be correct. Blood pressure 116/59. Heart rate normal. Respiration rate normal. Temperature normal. Oxygen saturation normal. <ALICIA Hanson - Last Filed: 11/12/21 18:11> Vital Signs - 24 hr 11/12/21 12:27 11/12/21 13:54 11/12/21 15:33 Temperature 98.4 F 98.2 F Pulse Rate 74 91 93 Respiratory Rate 18 21 H 18 Blood Pressure 116/59 L 104/56 L Pulse Oximetry 100 98 11/12/21 18:00 11/12/21 21:36 Temperature 98.2 F Pulse Rate 75 78 Respiratory Rate 22 H 20 Blood Pressure 104/54 L 107/62 Pulse Oximetry 97 99 BMI result Body Mass Index 26.9 <ALICIA Oconnell - Last Filed: 11/12/21 22:09> Appearance: Alert. Oriented X3. No acute distress. Head: Normal external exam. Normocephalic. Atraumatic. Eyes: PERRLA. EOMI. Conjunctiva and sclera normal. Eyelids normal. ENT: Pharynx normal. Uvula midline. Moist mucous membranes. No trismus noted. No drooling noted. No muffled voice noted. Neck: Normal inspection. Neck supple. FROM. No adenopathy. Thyroid Normal. No meningeal signs. No neck mass noted. CVS: Normal heart rate and rhythm. Heart sound normal. Pulses normal throughout. No murmurs/rales/gallops. Respiratory: No respiratory distress. Painless inspiration. Although patient noted to have decreased breath sounds with inspiratory and expiratory wheezing throughout. No rales/rhonchi noted. Chest nontender. No accessory muscle usage noted or decreased air movement noted. Abdomen: Soft and nontender. Bowel sounds normal in all 4 quadrants. No distention noted. No organomegaly noted. No visible injury noted. Back: No CVA tenderness. Full range of motion noted. No rashes/lesion/induration/fluctuance or signs of infection noted. Skin: Skin warm and dry. Normal skin color. Normal skin turgor. No rashes/lesions/lacerations noted. Extremities: + 3 lower extremity pitting edema bilaterally. No calf tenderness is noted. No edema to upper extremities on my exam. Extremities exhibit normal range of motion. Extremities nontender. Neuro: Oriented X 3. No motor deficit. No sensory deficit. Reflexes normal. Normal steady gait. No focal neuro deficits noted. CN's II-XII intact bilaterally? Vascular: + radial pulses/+ 2 distal pedal pulses/+2 dorsalis pedis b/l. Normal cap refill. No cyanosis noted to upper extremity nails and lower extremity toes nails. 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 Patient also reported she had a fall this morning and her nurse told her that she had low blood sugar. She did hit her head but did not lose consciousness. No prolonged down time. She is not on any blood thinners. She denies any other symptoms complaints or concerns at this time. Plan: Labs, CT scan of brain/cervical spine, EKG COVID swab then re-evaluate <ALICIA Hanson - Last Filed: 11/12/21 18:11> Reevaluation(s) Reevaluation #1: - patient with anemia it appears that she has a chronic anemia although she has a 2 point drop from 07/05/2021 therefore will obtain a stool occult. - patient has a chronic hyponatremia today she is at 127 on 07/08/2021 she her sodium was 128 therefore no intervention indicated at this time - patient's BNP is 724 - troponin pending - otherwise all other labs are within normal limits - patient negative for COVID - chest x-ray within normal limits no acute processes were noted - EKG normal sinus rhythm with nonspecific ST abnormalities and a prolonged QT otherwise no acute ischemic changes and similar compared to prior EKGs - will give the patient 25 mg of spironolactone and I went back in to evaluate the patient and now she is saying that she was short of breath therefore will obtain a CTA of chest for possible PE and a venous duplex ultrasound of bilateral lower extremity to rule out PE versus DVT. Patient most likely CHF. Will re-evaluate <ALICIA Hanson Last Filed: 11/12/21 18:11> Time: 17:34 <ALICIA Hanson - Last Filed: 11/12/21 18:11> Reevaluation #2: - stool occult negative. - Troponin 4.3 - therefore at this time repeat troponin was ordered - sign out pending CT of chest for PE and venous duplex ultrasound of bilateral lower extremity to rule out DVT sign out to MIAK Scott <ALICIA Hanson - Last Filed: 11/12/21 18:11> Time: 18:07 <ALICIA Hanson - Last Filed: 11/12/21 18:11> Reevaluation #3: Patient's CTA showed possible filling defects in distal branches however, when speaking to the radiologist, she stated that this is very likely due to motion artificat rather than an emboli. I obtained a d-dimer that was negative, indicating even more that the CTA finding was secondary to motion artifact. Patient's duplex ultrasound showed no acute process. Patient's will be discharged. <ALICIA Oconnell - Last Filed: 11/12/21 22:09> Time: 22:09 <ALICIA Oconnell - Last Filed: 11/12/21 22:09> Medical Decision Making Medical Records Medical records reviewed: Yes I reviewed the patient's medical records. <ALICIA Hanson - Last Filed: 11/12/21 18:11> Lab Data Lab results reviewed: Yes I reviewed the patient's lab results. <ALICIA Hanson - Last Filed: 11/12/21 18:11> Result diagrams: : 11/12/21 14:05 11/12/21 14:05 <ALICIA Hanson - Last Filed: 11/12/21 18:11> Labs: Lab Results 11/12/21 11/12/21 11/12/21 Range/Units 14:05 14:05 14:05 WBC 5.5 (4.8-10.8) X10*3/uL RBC 2.48 L (4.20-5.50) X10*6/uL Hgb 8.2 L (12.0-16.0) g/dl Hct 23.2 L (37.0-47.0) % MCV 93.5 (80.0-98.0) fL MCH 33.1 H (27.0-33.0) pg MCHC 35.3 H (31.0-35.0) g/dl RDW 13.8 (11.0-16.0) % Plt Count 251 (160-400) X10*3/uL MPV 8.9 L (9.4-12.3) fL Immature Gran % (Auto) 0.4 (0.0-0.4) % Neut % (Auto) 60.7 (45-73) % Lymph % (Auto) 25.5 (20-40) % [place] % (Auto) 12.8 H (2-11) % Eos % (Auto) 0.4 (0-4) % Baso % (Auto) 0.2 (0-2) % Lymph # (Auto) 1.4 (1.2-4.9) X10*3/uL [place] # (Auto) 0.7 (0.1-1.2) X10*3/uL Eos # (Auto) 0.0 (0.0-0.4) X10*3/uL Baso # (Auto) 0.0 (0.0-0.2) X10*3/uL Abs Immat Gran (auto) 0.02 (0.00-0.03) X10*3/uL Absolute Neuts (auto) 3.4 (2.0-8.3) x10*3/uL Absolute Nucleated RBC 0.000 (0.0-0.012) X10*3/uL Nucleated RBC % (auto) 0.0 (0.0-0.2) /100WBC Hold Purple Top SEE NOTE PT 10.9 (9.9-13.0) SEC INR 1.0 (0.9-1.1) D-Dimer High Sensitivty NG/ML Sodium (135-145) mmol/L Potassium (3.3-5.1) mmol/L Chloride (96-108) mmol/L Carbon Dioxide (22-29) mmol/L Anion Gap (12-20) BUN (9-16) mg/dL Creatinine (0.5-1.4) mg/dL Estim Creat Clear Calc Estimated GFR Random Glucose (60-115) mg/dL Calcium (8.4-10.2) mg/dL Magnesium (1.6-2.6) mg/dL Total Bilirubin (0.0-1.0) mg/dL AST (5-31) U/L ALT (0-31) U/L Alkaline Phosphatase (39-117) U/L Troponin I High Sens (<3.5-17.0) ng/L B-Natriuretic Peptide (<100) pg/mL Total Protein (6.5-8.0) g/dL Albumin (3.5-5.0) g/dL Stool Occult Blood (NEGATIVE) COVID-19 (ZAKIA) (Negative) COVID-19 Clin Com 11/12/21 11/12/21 11/12/21 Range/Units 14:05 14:05 14:05 WBC (4.8-10.8) X10*3/uL RBC (4.20-5.50) X10*6/uL Hgb (12.0-16.0) g/dl Hct (37.0-47.0) % MCV (80.0-98.0) fL MCH (27.0-33.0) pg MCHC (31.0-35.0) g/dl RDW (11.0-16.0) % Plt Count (160-400) X10*3/uL MPV (9.4-12.3) fL Immature Gran % (Auto) (0.0-0.4) % Neut % (Auto) (45-73) % Lymph % (Auto) (20-40) % [place] % (Auto) (2-11) % Eos % (Auto) (0-4) % Baso % (Auto) (0-2) % Lymph # (Auto) (1.2-4.9) X10*3/uL [place] # (Auto) (0.1-1.2) X10*3/uL Eos # (Auto) (0.0-0.4) X10*3/uL Baso # (Auto) (0.0-0.2) X10*3/uL Abs Immat Gran (auto) (0.00-0.03) X10*3/uL Absolute Neuts (auto) (2.0-8.3) x10*3/uL Absolute Nucleated RBC (0.0-0.012) X10*3/uL Nucleated RBC % (auto) (0.0-0.2) /100WBC Hold Purple Top PT (9.9-13.0) SEC INR (0.9-1.1) D-Dimer High Sensitivty NG/ML Sodium 127 L (135-145) mmol/L Potassium 4.5 (3.3-5.1) mmol/L Chloride 97 (96-108) mmol/L Carbon Dioxide 26 (22-29) mmol/L Anion Gap 9 L (12-20) BUN 12 (9-16) mg/dL Creatinine 0.81 (0.5-1.4) mg/dL Estim Creat Clear Calc 61.9 Estimated GFR > 60 Random Glucose 85 (60-115) mg/dL Calcium 8.3 L (8.4-10.2) mg/dL Magnesium 2.0 (1.6-2.6) mg/dL Total Bilirubin < 0.2 (0.0-1.0) mg/dL AST 28 (5-31) U/L ALT 12 (0-31) U/L Alkaline Phosphatase 104 D (39-117) U/L Troponin I High Sens 4.3 (<3.5-17.0) ng/L B-Natriuretic Peptide 724 H (<100) pg/mL Total Protein 5.0 L (6.5-8.0) g/dL Albumin 2.5 L (3.5-5.0) g/dL Stool Occult Blood (NEGATIVE) COVID-19 (ZAKIA) Negative (Negative) COVID-19 Clin Com See Note 11/12/21 11/12/21 11/12/21 Range/Units 17:36 20:40 21:35 WBC (4.8-10.8) X10*3/uL RBC (4.20-5.50) X10*6/uL Hgb (12.0-16.0) g/dl Hct (37.0-47.0) % MCV (80.0-98.0) fL MCH (27.0-33.0) pg MCHC (31.0-35.0) g/dl RDW (11.0-16.0) % Plt Count (160-400) X10*3/uL MPV (9.4-12.3) fL Immature Gran % (Auto) (0.0-0.4) % Neut % (Auto) (45-73) % Lymph % (Auto) (20-40) % [place] % (Auto) (2-11) % Eos % (Auto) (0-4) % Baso % (Auto) (0-2) % Lymph # (Auto) (1.2-4.9) X10*3/uL [place] # (Auto) (0.1-1.2) X10*3/uL Eos # (Auto) (0.0-0.4) X10*3/uL Baso # (Auto) (0.0-0.2) X10*3/uL Abs Immat Gran (auto) (0.00-0.03) X10*3/uL Absolute Neuts (auto) (2.0-8.3) x10*3/uL Absolute Nucleated RBC (0.0-0.012) X10*3/uL Nucleated RBC % (auto) (0.0-0.2) /100WBC Hold Purple Top PT (9.9-13.0) SEC INR (0.9-1.1) D-Dimer High Sensitivty 192 NG/ML Sodium (135-145) mmol/L Potassium (3.3-5.1) mmol/L Chloride (96-108) mmol/L Carbon Dioxide (22-29) mmol/L Anion Gap (12-20) BUN (9-16) mg/dL Creatinine (0.5-1.4) mg/dL Estim Creat Clear Calc Estimated GFR Random Glucose (60-115) mg/dL Calcium (8.4-10.2) mg/dL Magnesium (1.6-2.6) mg/dL Total Bilirubin (0.0-1.0) mg/dL AST (5-31) U/L ALT (0-31) U/L Alkaline Phosphatase (39-117) U/L Troponin I High Sens 4.1 (<3.5-17.0) ng/L B-Natriuretic Peptide (<100) pg/mL Total Protein (6.5-8.0) g/dL Albumin (3.5-5.0) g/dL Stool Occult Blood NEGATIVE (NEGATIVE) COVID-19 (ZAKIA) (Negative) COVID-19 Clin Com <ALICIA Hanson - Last Filed: 11/12/21 18:11> Lab Results 11/12/21 11/12/21 11/12/21 Range/Units 14:05 14:05 14:05 WBC 5.5 (4.8-10.8) X10*3/uL RBC 2.48 L (4.20-5.50) X10*6/uL Hgb 8.2 L (12.0-16.0) g/dl Hct 23.2 L (37.0-47.0) % MCV 93.5 (80.0-98.0) fL MCH 33.1 H (27.0-33.0) pg MCHC 35.3 H (31.0-35.0) g/dl RDW 13.8 (11.0-16.0) % Plt Count 251 (160-400) X10*3/uL MPV 8.9 L (9.4-12.3) fL Immature Gran % (Auto) 0.4 (0.0-0.4) % Neut % (Auto) 60.7 (45-73) % Lymph % (Auto) 25.5 (20-40) % [place] % (Auto) 12.8 H (2-11) % Eos % (Auto) 0.4 (0-4) % Baso % (Auto) 0.2 (0-2) % Lymph # (Auto) 1.4 (1.2-4.9) X10*3/uL [place] # (Auto) 0.7 (0.1-1.2) X10*3/uL Eos # (Auto) 0.0 (0.0-0.4) X10*3/uL Baso # (Auto) 0.0 (0.0-0.2) X10*3/uL Abs Immat Gran (auto) 0.02 (0.00-0.03) X10*3/uL Absolute Neuts (auto) 3.4 (2.0-8.3) x10*3/uL Absolute Nucleated RBC 0.000 (0.0-0.012) X10*3/uL Nucleated RBC % (auto) 0.0 (0.0-0.2) /100WBC Hold Purple Top SEE NOTE PT 10.9 (9.9-13.0) SEC INR 1.0 (0.9-1.1) D-Dimer High Sensitivty NG/ML Sodium (135-145) mmol/L Potassium (3.3-5.1) mmol/L Chloride (96-108) mmol/L Carbon Dioxide (22-29) mmol/L Anion Gap (12-20) BUN (9-16) mg/dL Creatinine (0.5-1.4) mg/dL Estim Creat Clear Calc Estimated GFR Random Glucose (60-115) mg/dL Calcium (8.4-10.2) mg/dL Magnesium (1.6-2.6) mg/dL Total Bilirubin (0.0-1.0) mg/dL AST (5-31) U/L ALT (0-31) U/L Alkaline Phosphatase (39-117) U/L Troponin I High Sens (<3.5-17.0) ng/L B-Natriuretic Peptide (<100) pg/mL Total Protein (6.5-8.0) g/dL Albumin (3.5-5.0) g/dL Stool Occult Blood (NEGATIVE) COVID-19 (ZAKIA) (Negative) COVID-19 Clin Com 11/12/21 11/12/21 11/12/21 Range/Units 14:05 14:05 14:05 WBC (4.8-10.8) X10*3/uL RBC (4.20-5.50) X10*6/uL Hgb (12.0-16.0) g/dl Hct (37.0-47.0) % MCV (80.0-98.0) fL MCH (27.0-33.0) pg MCHC (31.0-35.0) g/dl RDW (11.0-16.0) % Plt Count (160-400) X10*3/uL MPV (9.4-12.3) fL Immature Gran % (Auto) (0.0-0.4) % Neut % (Auto) (45-73) % Lymph % (Auto) (20-40) % [place] % (Auto) (2-11) % Eos % (Auto) (0-4) % Baso % (Auto) (0-2) % Lymph # (Auto) (1.2-4.9) X10*3/uL [place] # (Auto) (0.1-1.2) X10*3/uL Eos # (Auto) (0.0-0.4) X10*3/uL Baso # (Auto) (0.0-0.2) X10*3/uL Abs Immat Gran (auto) (0.00-0.03) X10*3/uL Absolute Neuts (auto) (2.0-8.3) x10*3/uL Absolute Nucleated RBC (0.0-0.012) X10*3/uL Nucleated RBC % (auto) (0.0-0.2) /100WBC Hold Purple Top PT (9.9-13.0) SEC INR (0.9-1.1) D-Dimer High Sensitivty NG/ML Sodium 127 L (135-145) mmol/L Potassium 4.5 (3.3-5.1) mmol/L Chloride 97 (96-108) mmol/L Carbon Dioxide 26 (22-29) mmol/L Anion Gap 9 L (12-20) BUN 12 (9-16) mg/dL Creatinine 0.81 (0.5-1.4) mg/dL Estim Creat Clear Calc 61.9 Estimated GFR > 60 Random Glucose 85 (60-115) mg/dL Calcium 8.3 L (8.4-10.2) mg/dL Magnesium 2.0 (1.6-2.6) mg/dL Total Bilirubin < 0.2 (0.0-1.0) mg/dL AST 28 (5-31) U/L ALT 12 (0-31) U/L Alkaline Phosphatase 104 D (39-117) U/L Troponin I High Sens 4.3 (<3.5-17.0) ng/L B-Natriuretic Peptide 724 H (<100) pg/mL Total Protein 5.0 L (6.5-8.0) g/dL Albumin 2.5 L (3.5-5.0) g/dL Stool Occult Blood (NEGATIVE) COVID-19 (ZAKIA) Negative (Negative) COVID-19 Clin Com See Note 11/12/21 11/12/21 11/12/21 Range/Units 17:36 20:40 21:35 WBC (4.8-10.8) X10*3/uL RBC (4.20-5.50) X10*6/uL Hgb (12.0-16.0) g/dl Hct (37.0-47.0) % MCV (80.0-98.0) fL MCH (27.0-33.0) pg MCHC (31.0-35.0) g/dl RDW (11.0-16.0) % Plt Count (160-400) X10*3/uL MPV (9.4-12.3) fL Immature Gran % (Auto) (0.0-0.4) % Neut % (Auto) (45-73) % Lymph % (Auto) (20-40) % [place] % (Auto) (2-11) % Eos % (Auto) (0-4) % Baso % (Auto) (0-2) % Lymph # (Auto) (1.2-4.9) X10*3/uL [place] # (Auto) (0.1-1.2) X10*3/uL Eos # (Auto) (0.0-0.4) X10*3/uL Baso # (Auto) (0.0-0.2) X10*3/uL Abs Immat Gran (auto) (0.00-0.03) X10*3/uL Absolute Neuts (auto) (2.0-8.3) x10*3/uL Absolute Nucleated RBC (0.0-0.012) X10*3/uL Nucleated RBC % (auto) (0.0-0.2) /100WBC Hold Purple Top PT (9.9-13.0) SEC INR (0.9-1.1) D-Dimer High Sensitivty 192 NG/ML Sodium (135-145) mmol/L Potassium (3.3-5.1) mmol/L Chloride (96-108) mmol/L Carbon Dioxide (22-29) mmol/L Anion Gap (12-20) BUN (9-16) mg/dL Creatinine (0.5-1.4) mg/dL Estim Creat Clear Calc Estimated GFR Random Glucose (60-115) mg/dL Calcium (8.4-10.2) mg/dL Magnesium (1.6-2.6) mg/dL Total Bilirubin (0.0-1.0) mg/dL AST (5-31) U/L ALT (0-31) U/L Alkaline Phosphatase (39-117) U/L Troponin I High Sens 4.1 (<3.5-17.0) ng/L B-Natriuretic Peptide (<100) pg/mL Total Protein (6.5-8.0) g/dL Albumin (3.5-5.0) g/dL Stool Occult Blood NEGATIVE (NEGATIVE) COVID-19 ([facility]) (Negative) COVID-19 Clin Com <ALICIA Oconnell - Last Filed: 11/12/21 22:09> Imaging Data Chest x-ray: Attestation: I personally reviewed and interpreted this imaging study as follows: <ALICIA Hanson Last Filed: 11/12/21 18:11> Radiologist's impression: FINDINGS: No significant abnormality is noted involving the heart, lungs, mediastinum, or soft tissues. There is severe bilateral shoulder degenerative change right greater than left. XR/XR chest 2V IMPRESSION: No acute disease. <ALICIA Hanson - Last Filed: 11/12/21 18:11> ECG Data Attestation: I personally reviewed and interpreted this ECG as follows: <ALICIA Hanson - Last Filed: 11/12/21 18:11> Interpretation: Normal sinus rhythm with a ventricular rate of 92 with low voltage criteria for QRS with nonspecific ST and T-wave abnormalities no acute ischemic changes are noted with prolonged QT at 386 milliseconds although similar compared to prior EKG on 07/05/2021 <ALICIA Hanson Last Filed: 11/12/21 18:11> Critical Care Time Critical Care Time Critical Care Time: Yes <ALICIA Hanson Last Filed: 11/12/21 18:11> Total Critical Care Time: 60 <ALICIA Hanson Last Filed: 11/12/21 18:11> Attestation: I personally attest to this time spent taking care of the patient <ALICIA Hanson Last Filed: 11/12/21 18:11> Discharge Plan Discharge Clinical Impression: Chronic hyponatremia, CHF (congestive heart failure), Chronic anemia <ALICIA Hanson Last Filed: 11/12/21 18:11> Patient Disposition: Home, Self-Care <ALICIA Hanson - Last Filed: 11/12/21 18:11> Instructions: Heart Failure (DC), Anemia (ED) <ALICIA Hanson - Last Filed: 11/12/21 18:11> Prescriptions: New spironolactone 25 mg tablet 25 mg PO DAILY Qty: 30 0RF No Action aspirin 81 mg tablet,delayed release (DR/EC) 81 mg PO BEDTIME 0RF montelukast 10 mg tablet 10 mg PO QPM 0RF Flovent HFA 220 mcg/actuation HFA aerosol inhaler 1 puff inhalation BID 0RF albuterol sulfate [Ventolin HFA] 90 mcg/actuation HFA aerosol inhaler 2 puff inhalation Q4-6H PRN (Reason: Shortness Of Breath Or Wheezing) 0RF pravastatin 20 mg Tablet 20 mg PO BEDTIME 0RF citalopram 40 mg tablet 1 tab PO DAILY 0RF sodium chloride 1 gram Tablet 2 g PO TID 10 Days Qty: 60 0RF omeprazole 40 mg Capsule,Delayed Release(Dr/Ec) 40 mg PO DAILY@0630 30 Days Qty: 30 0RF clonazepam 1 mg Tablet 0.5 mg PO BID PRN (Reason: anxiety) Qty: 0 0RF furosemide [Lasix] 20 mg tablet 10 mg PO DAILY Qty: 30 0RF metformin 500 mg tablet 500 mg PO DAILY@08 0RF Rx Instructions: TAKE WITH FOOD metoprolol succinate 50 mg Tablet Extended Release 24 Hr 50 mg PO DAILY 30 Days Qty: 30 0RF Protocol: Hold for SBP/HR < HOLD for SBP < : 90 HOLD for HR < : 60 sennosides [senna] 8.6 mg tablet 1 tab PO BID PRN (Reason: constipation) 0RF thiamine HCl (vitamin B1) 100 mg tablet 1 tab PO QAM 0RF acetaminophen 650 mg tablet extended release 1 tab PO BID PRN (Reason: pain) 0RF folic acid 1 mg tablet 1 tab PO QAM 0RF quetiapine 25 mg tablet 1 tab PO BID 0RF tramadol 50 mg tablet 50 mg PO Q6H PRN (Reason: Pain, Moderate) Qty: 0 0RF <ALICIA Hanson - Last Filed: 11/12/21 18:11> Referrals: Physician,Unknown J [Primary Care Provider] - 2 days (your pcp) <ALICIA Hanson - Last Filed: 11/12/21 18:11> Print Language: [place] <ALICIA Hanson - Last Filed: 11/12/21 18:11>
[2021-11-12 15:33] VITALS: BP 104/56; PULSE 93; RESP 18; TEMP 36.8; O2SAT 98
[2021-11-12 17:39] LABS: Troponin-I High Sensitivity 4.3 ng/L (<3.5-17.0)
[2021-11-12 17:45] LABS: OBS Int Ctl Valid YES; OBS1 NEGATIVE (NEGATIVE)
[2021-11-12 18:00] VITALS: BP 104/54; PULSE 75; RESP 22; O2SAT 97
[2021-11-12] MEDS: Spironolactone 25 MG TABLET PO (18:00)
--- NOTE | 2021-11-12 19:31 | PC.NURSE ---
Assumed care of pt at 1900. Pt resting, vitals as charted. Dispo pending CT results
[2021-11-12] MEDS: iohexoL 350 MG/ML 100 ML INFUS..BTL IV (20:16)
[2021-11-12 21:24] LABS: Troponin-I High Sensitivity 4.1 ng/L (<3.5-17.0)
[2021-11-12 21:36] VITALS: BP 107/62; PULSE 78; RESP 20; TEMP 36.8; O2SAT 99
[2021-11-12 21:57] LABS: D Dimer High Sensitivity 192 NG/ML
== END 2021-11-13 00:08 | disposition home or self-care (01) ==
PROVIDERS: Physician Assistant Medical; Emergency Provider Emergency Medicine
DX: E87.1 Hypo-osmolality and hyponatremia (principal); I11.0 Hypertensive heart disease with heart failure; I50.9 Heart failure, unspecified; D64.9 Anemia, unspecified; R60.0 Localized edema; R06.02 Shortness of breath; Z20.822 Contact with and (suspected) exposure to COVID-19; E11.9 Type 2 diabetes mellitus without complications; E78.5 Hyperlipidemia, unspecified; F03.90 Unspecified dementia, unspecified severity, without behavioral disturbance, psychotic disturbance, mood disturbance, and anxiety; F17.200 Nicotine dependence, unspecified, uncomplicated; F12.90 Cannabis use, unspecified, uncomplicated; Z79.02 Long term (current) use of antithrombotics/antiplatelets; Z79.82 Long term (current) use of aspirin
CPT/HCPCS: 36415; 70450; 71046; 71275; 72125; 80053; 82272; 83735; 83880; 84484; 85025; 85379; 85610; 87635; 93005; 93970; 94640; 94644; 99284; 99291; Q9967

== ENCOUNTER 2021-11-24 17:07 | Inpatient (IN) | payer MEDICARE, MEDICAID, SELFPAY ==
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
[2021-11-24 17:22] VITALS: BP 118/70; BP 126/73; PULSE 78; PULSE 80; TEMP 36.9; O2SAT 100; BMI 20.9
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
[2021-11-24 18:33] LABS: MANUAL DIFF FLAG NO
[2021-11-24 18:34] LABS: Basophils Percent Auto 0.2 % (0-2); Eosinophils Percent Auto 0.5 % (0-4); Hematocrit 22.8 % (37.0-47.0); Hemoglobin 8.1 g/dl (12.0-16.0); Imm Gran Abs Auto 0.01 X10*3/uL (0.00-0.03); Imm Gran Pct Auto 0.2 % (0.0-0.4); Lymphocytes Absolute Auto 1.2 X10*3/uL (1.2-4.9); Mean Corpuscular HGB Conc 35.5 g/dl (31.0-35.0); Mean Corpuscular Hemoglobin 33.1 pg (27.0-33.0); Mean Corpuscular Volume 93.1 fL (80.0-98.0); Mean Platelet Volume 8.6 fL (9.4-12.3); Monocytes Absolute Auto 0.6 X10*3/uL (0.1-1.2); Monocytes Percent Auto 13.6 % (2-11); Neutrophils Absolute Auto 2.4 x10*3/uL (2.0-8.3); Neutrophils Percent Auto 56.5 % (45-73); Platelet Count 315 X10*3/uL (160-400); Red Blood Count 2.45 X10*6/uL (4.20-5.50); Red Cell Distribution Width 13.4 % (11.0-16.0); White Blood Count 4.2 X10*3/uL (4.8-10.8)
[2021-11-24 18:38] LABS: Appearance Urine HAZY; Color Urine YELLOW; Glucose Urine UA NEG (NEG); Leukocyte Esterase Urine 1+ (NEG); Nitrite Urine POS (NEG); Specific Gravity - Urine <= 1.005 (1.005-1.025); UACC Culture Trigger YES; Urine Blood TRACE (NEG); Urine Ketones NEG (NEG); Urine Protein NEG (NEG-TRACE)
[2021-11-24 18:57] LABS: Troponin-I High Sensitivity 4.6 ng/L (<3.5-17.0)
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
[2021-11-24 19:06] LABS: Alanine Aminotransferase 8 U/L (0-31); Albumin Level 2.8 g/dL (3.5-5.0); Alkaline Phosphatase 93 U/L (39-117); Aspartate Amino Transferase 23 U/L (5-31); Bilirubin Direct 0.2 mg/dL (0.0-0.5); Bilirubin Total 0.3 mg/dL (0.0-1.0); Blood Urea Nitrogen 7 mg/dL (9-16); Calcium 8.7 mg/dL (8.4-10.2); Chloride 92 mmol/L (96-108); Estimated Glomerular Filt Rate > 60; Glucose Random 93 mg/dL (60-115); Lipase 42 U/L (8-78); Potassium 4.8 mmol/L (3.3-5.1); Sodium 123 mmol/L (135-145); Total Protein 5.3 g/dL (6.5-8.0)
[2021-11-24 19:07] LABS: Bacteria Urine 4+ /LPF; Squamous Epithelial Cell Urine 3+ /LPF; WBC Clumps Urine NOTED
[2021-11-24 19:34] LABS: Anion Gap 10 (12-20); Carbon Dioxide 26 mmol/L (22-29)
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
[2021-11-24 20:00] VITALS: BP 119/64; PULSE 84; RESP 18; O2SAT 100
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
[2021-11-24] MEDS: 0.9 % Sodium Chloride 1,000 ML 999 ML IVCONT ×2 (20:11→22:58)
[2021-11-24] MEDS: cefTRIAXone sodium 1 GM in 0.9 % Sodium Chloride 50 ML IV (20:12)
[2021-11-24 22:49] VITALS: BP 132/70; PULSE 72; RESP 18; TEMP 37.1; O2SAT 97
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
[2021-11-25] VITALS (13 sets, daily range): BP systolic 120–139; BP diastolic 62–88; PULSE 75–97; RESP 11–24; TEMP 36.2–36.9; O2SAT 92–100; BMI 25.0
[2021-11-25] MEDS: Albuterol Sulfate (0.083%) 2.5 MG/3 ML VIAL.NEB 5 MG INHALE (00:37)
[2021-11-25 00:42] LABS: COVID-19 Test Negative (Negative); IDNOW Serial# 16C4AD1C
[2021-11-25] MEDS: 0.9 % Sodium Chloride 1,000 ML 50 ML IVCONT (02:40)
[2021-11-25] MEDS: Melatonin 3 MG TABLET 6 MG PO (02:42)
[2021-11-25] MEDS: Acetaminophen 325 MG TABLET 650 MG PO (02:42)
[2021-11-25 05:58] LABS: MANUAL DIFF FLAG NO
[2021-11-25 06:09] LABS: Basophils Percent Auto 0.5 % (0-2); Eosinophils Percent Auto 0.8 % (0-4); Hematocrit 23.9 % (37.0-47.0); Hemoglobin 8.1 g/dl (12.0-16.0); Imm Gran Abs Auto 0.01 X10*3/uL (0.00-0.03); Imm Gran Pct Auto 0.3 % (0.0-0.4); Lymphocytes Absolute Auto 1.3 X10*3/uL (1.2-4.9); Lymphocytes Percent Auto 34.1 % (20-40); Mean Corpuscular HGB Conc 33.9 g/dl (31.0-35.0); Mean Corpuscular Hemoglobin 32.5 pg (27.0-33.0); Mean Platelet Volume 9.1 fL (9.4-12.3); Monocytes Absolute Auto 0.7 X10*3/uL (0.1-1.2); Monocytes Percent Auto 17.6 % (2-11); Neutrophils Absolute Auto 1.7 x10*3/uL (2.0-8.3); Neutrophils Percent Auto 46.7 % (45-73); Platelet Count 340 X10*3/uL (160-400); Red Blood Count 2.49 X10*6/uL (4.20-5.50); Red Cell Distribution Width 13.4 % (11.0-16.0); White Blood Count 3.7 X10*3/uL (4.8-10.8)
[2021-11-25] MEDS: Omeprazole 40 MG CAPSULE.DR PO (06:20)
[2021-11-25 06:33] LABS: Anion Gap 11 (12-20); Blood Urea Nitrogen 7 mg/dL (9-16); Carbon Dioxide 23 mmol/L (22-29); Creatinine Clr Calc Pharmacy 63.4; Estimated Glomerular Filt Rate > 60
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
[2021-11-25 06:54] LABS: Calcium 8.5 mg/dL (8.4-10.2); Chloride 100 mmol/L (96-108); Glucose Random 99 mg/dL (60-115); Sodium 130 mmol/L (135-145)
[2021-11-25] MEDS: Fluticasone Propionate 250 MCG BLST.W.DEV 1 PUFF INHALE ×2 (08:00→20:27)
[2021-11-25 08:59] LABS: Glucose, Whole Blood 105 mg/dL (60-115)
[2021-11-25] MEDS: Metoprolol Succinate ER 50 MG TAB.ER.24H PO (09:11)
[2021-11-25] MEDS: Thiamine HCL 100 MG TABLET PO (09:11)
[2021-11-25] MEDS: Insulin Lispro 100 UNIT/ML 3 ML VIAL SUBCUT (09:11)
[2021-11-25] MEDS: Heparin Sodium,Porcine 5,000 UNIT/ML VIAL 5000 UNIT SUBCUT ×2 (09:11→16:01)
[2021-11-25] MEDS: Escitalopram Oxalate 20 MG TABLET PO (09:12)
[2021-11-25] MEDS: Folic Acid 1 MG TABLET PO (09:12)
[2021-11-25] MEDS: Spironolactone 25 MG TABLET PO (09:12)
[2021-11-25] MEDS: hydrALAZINE HCl 25 MG TABLET PO ×3 (09:12→20:30)
[2021-11-25] MEDS: QUEtiapine Fumarate 25 MG TABLET PO ×2 (09:12→20:30)
[2021-11-25] MEDS: Furosemide 20 MG TABLET 10 MG PO (09:12)
--- NOTE | 2021-11-25 09:18 | PC.NURSE ---
Pr received from assistant casino shift manager: Pt AOx2-3 and offers no complaits at this time. Pt incontinent, changed and purewick replaced. Heart sounds normal and lungs diminished. Intermittent moist cough noted. Pt abd soft and non-tender.
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
[2021-11-25] MEDS: Albuterol/Iprat 2.5/0.5MG 3 ML AMPUL.NEB INHALE ×2 (10:43→20:36)
--- NOTE | 2021-11-25 11:30 | PC.NURSE ---
As per Case Management Wu, update status may be given to pt's outpt case folder Emily Luther: [phone]. Update status given.
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
--- NOTE | 2021-11-25 12:58 | MHC.CM.PN ---
Attempted to meet with patient in regards to discharge planning. Patient has advanced dementia with an invoked HCP. Patient is well known to case management. Received telephone call from Emily at [facility]. She can be reached via telephone at [phone]. Magdy is intersested in having patient go to short term rehab. T/W explained patient has left multiple facilities and she may be difficult to place. Referral broadcasted in [employer]. Patient received Moderna vaccines on 02/03/21 and 09/30/21. IMM explained and sent to Juanjo via certified mail. Received telephone call from Inge at [facility]. She can be reached via telephone at [phone] ext [phone]. Inge would like to be notified of discharge plans. Continue to monitor for d/c needs.
[2021-11-25 13:12] LABS: Glucose, Whole Blood 45 mg/dL (60-115)
[2021-11-25] MEDS: Glucose Gel 15 GM GEL..GRAM. PO (13:17)
[2021-11-25] MEDS: cefTRIAXone sodium 1 GM in 0.9 % Sodium Chloride 50 ML IV (15:25)
[2021-11-25 16:32] LABS: Glucose, Whole Blood 133 mg/dL (60-115)
[2021-11-25 18:23] LABS: Glucose, Whole Blood 105 mg/dL (60-115)
[2021-11-25 20:08] LABS: Glucose, Whole Blood 97 mg/dL (60-115)
[2021-11-25] MEDS: Montelukast Sodium 10 MG TABLET PO (20:30)
[2021-11-25] MEDS: Aspirin Enteric Coated 81 MG TABLET.DR PO (20:30)
[2021-11-25] MEDS: Pravastatin Sodium 20 MG TABLET PO (23:59)
[2021-11-26] MEDS: Melatonin 3 MG TABLET 6 MG PO
[2021-11-26] MEDS: 0.9 % Sodium Chloride 1,000 ML 50 ML IVCONT (00:02)
[2021-11-26] MEDS: Heparin Sodium,Porcine 5,000 UNIT/ML VIAL 5000 UNIT SUBCUT ×3 (00:11→15:58)
[2021-11-26] MEDS: 0.9 % Sodium Chloride Flush 3 ML SYRINGE IVFLUSH ×3 (00:13→15:59)
[2021-11-26 04:00] VITALS: PULSE 80; RESP 17
[2021-11-26 06:00] VITALS: BMI 25.0
[2021-11-26 07:13] VITALS: BP 135/57; PULSE 82; RESP 20; TEMP 37; O2SAT 92
[2021-11-26 07:27] LABS: Glucose, Whole Blood 97 mg/dL (60-115)
[2021-11-26] MEDS: Fluticasone Propionate 250 MCG BLST.W.DEV 1 PUFF INHALE (07:42)
[2021-11-26] MEDS: Albuterol/Iprat 2.5/0.5MG 3 ML AMPUL.NEB INHALE ×2 (07:42→11:13)
[2021-11-26 07:45] VITALS: PULSE 85; RESP 20; O2SAT 97
[2021-11-26] MEDS: Escitalopram Oxalate 20 MG TABLET PO (08:34)
[2021-11-26] MEDS: Spironolactone 25 MG TABLET PO (08:34)
[2021-11-26] MEDS: Metoprolol Succinate ER 50 MG TAB.ER.24H PO (08:35)
[2021-11-26] MEDS: QUEtiapine Fumarate 25 MG TABLET PO (08:35)
[2021-11-26] MEDS: Thiamine HCL 100 MG TABLET PO (08:35)
[2021-11-26] MEDS: Furosemide 20 MG TABLET 10 MG PO (08:35)
[2021-11-26] MEDS: hydrALAZINE HCl 25 MG TABLET PO ×2 (08:35→15:58)
[2021-11-26] MEDS: Folic Acid 1 MG TABLET PO (08:35)
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
[2021-11-26 10:49] VITALS: BP 106/57; PULSE 88; RESP 20; TEMP 36.8; O2SAT 95
[2021-11-26 10:56] LABS: Glucose, Whole Blood 124 mg/dL (60-115)
--- NOTE | 2021-11-26 11:13 | CONS_ITS ---
DATE OF SERVICE: 11/25/2021 REASON FOR CONSULTATION: I was called to see this patient to assist in management of hyponatremia. HISTORY OF PRESENT ILLNESS: To summarize, Belia is a 66-year-old woman with a history of hypertension, diabetes mellitus, coronary artery disease, bipolar disorder, COPD, and alcohol abuse. She comes in because of fall. She was found to have serum sodium of 128 and 130 mmol/L and hence this consultation. PAST MEDICAL PROBLEMS: Ongoing medical problems include history of hyponatremia, alcohol abuse, bipolar disorder, congestive heart failure, COPD, coronary artery disease, dementia, hypertension, osteoporosis. PAST SURGICAL HISTORY: Significant for appendectomy. SOCIAL HISTORY: Lives in an apartment. History of smoking cigarettes and she also consumes alcohol. ALLERGIES: INCLUDE ADVAIR, PAXIL. MEDICATIONS: At the time of admission included aspirin, Flovent, montelukast, pravastatin, metformin, thiamine, citalopram 40 mg daily, quetiapine, hydralazine, and ipratropium. REVIEW OF SYSTEM: Did not reveal any polyuria, polydipsia. No diarrhea or constipation. All other systems were reviewed and as per history and physical. PHYSICAL EXAMINATION: GENERAL: Jackie is a middle-aged woman. She is obese, comfortable, not in distress. NECK: Supple. No JVD. HEENT: Mucosa is moist. LUNGS: Air entry equal. No rales. HEART: S1, S2 heard. No gallop. ABDOMEN: Distended, soft, nontender. EXTREMITIES: Trace edema. No rash. No clubbing. VITAL SIGNS: Blood pressure was 129/85. LABORATORY DATA: Hemoglobin 8.1, sodium 130, potassium 4.0, BUN 7, creatinine 0.79, albumin 2.8. IMPRESSION: 66-year-old woman with alcohol abuse and bipolar disorder, who has been on SSRI, comes in with fall and was found to have hyponatremia with sodium of 123. The different diagnosis of hyponatremia would include hypovolemic hyponatremia versus euvolemic hyponatremia. Clinically, she appears hypovolemic. RECOMMENDATION: Would be to obtain a spot urine for sodium, creatinine osmolality, and check serum osmolality. I would restrict oral free water intake to 1.2 L/24 hours and agree with IV normal saline. The serum sodium is gradually improving. Recheck the serum sodium every 2-4 hours to avoid rapid correction. There is no indication for hypertonic saline or urea at this time. Belia has been drinking alcohol. The urine osmolality is less than 1.005, and in the past, she had a urine osmolality of 122. This suggests she might have underlying beer potomania and she is excreting free water spontaneously. Monitoring the urine output will be the renee and again, the goal is to avoid rapid correction of serum sodium. The rate of correction should be 0.5 mmol/L/hour and not exceed more than 8-10 mmol in 24 hours. We will follow along with the team. Dilshad Gallegos MD BPA/MODL / [id number]
[2021-11-26 11:15] VITALS: PULSE 87; RESP 18; O2SAT 95
[2021-11-26] MEDS: cefTRIAXone sodium 1 GM in 0.9 % Sodium Chloride 50 ML IV (14:44)
== END 2021-11-26 17:00 | disposition skilled nursing facility (03) | DRG 690 ==
LOC: HO.ED 17:37 → HO.EDOVER 11-25 00:05 → HO.IMC 11-25 19:10
PROVIDERS: Nurse Practitioner Family; Admitting Provider Hospitalist; Emergency Provider Emergency Medicine; PCP Internal Medicine Geriatric Medicine; Visit Provider Internal Medicine
DX: N39.0 Urinary tract infection, site not specified (principal); E87.1 Hypo-osmolality and hyponatremia; T76.11XA Adult physical abuse, suspected, initial encounter; N17.9 Acute kidney failure, unspecified; F17.210 Nicotine dependence, cigarettes, uncomplicated; E78.5 Hyperlipidemia, unspecified; Y07.01 Husband, perpetrator of maltreatment and neglect; J45.909 Unspecified asthma, uncomplicated; E11.9 Type 2 diabetes mellitus without complications; I25.10 Atherosclerotic heart disease of native coronary artery without angina pectoris; I50.9 Heart failure, unspecified; I11.0 Hypertensive heart disease with heart failure; F10.10 Alcohol abuse, uncomplicated; F31.9 Bipolar disorder, unspecified; B96.1 Klebsiella pneumoniae [K. pneumoniae] as the cause of diseases classified elsewhere; Z20.822 Contact with and (suspected) exposure to COVID-19; Z71.6 Tobacco abuse counseling; Z79.84 Long term (current) use of oral hypoglycemic drugs; Z79.899 Other long term (current) drug therapy
CPT/HCPCS: 36415; 70450; 71045; 71250; 72125; 74176; 80048; 80076; 81001; 82947; 83690; 84484; 85025; 87086; 87088; 87186; 87635; 93005; 94640; 96361; 96365; 97162; 99285; 99291; J0696

== ENCOUNTER 2021-12-20 00:15 | Inpatient (IN) | payer MEDICARE, MEDICAID, SELFPAY ==
[2021-12-20] VITALS (17 sets, daily range): BP systolic 91–158; BP diastolic 48–76; PULSE 72–96; RESP 18–22; TEMP 36.8–37.1; O2SAT 91–945; BMI 37.2; BMI 25.6
--- NOTE | ~2021-12-20 | XR_ITS ---
EXAMINATION: XR ANKLE, RIGHT CLINICAL INFORMATION: Pain post fall COMPARISON: None TECHNIQUE: AP, lateral, and mortise views of the right ankle. FINDINGS: Bone alignment is normal. No fracture or dislocation is seen. There are small osteophytes projecting off the medial malleolus. The ankle mortise is normal. There are calcaneal spurs. XR/XR ankle RT min 3V IMPRESSION: No fracture or dislocation seen.
--- NOTE | 2021-12-20 00:24 | ED.EXTPRO ---
HPI - Extremity Problem General Chief complaint: Extremity Problem Stated complaint: SEVERE LEG PAIN Time Seen by Provider: 12/20/21 00:24 Source: patient Mode of arrival: EMS Limitations: language barrier History of Present Illness HPI Narrative: Patient's history of hypertension hyperlipidemia diabetes coronary disease CHF bipolar schizophrenia COPD history of alcohol abuse, hyponatremia just discharged on 11/26 from our hospital comes back for increased right leg pain for last few days getting worse today no trauma also noticed slight right ankle swelling no change in mental status no seizures no abdominal pain or nausea vomiting patient drinks beer every day Related Data Home Medications Medication Instructions Recorded Confirmed aspirin 81 mg tablet,delayed 81 mg PO BEDTIME 08/18/20 11/24/21 release fluticasone propionate 220 1 puff INHALATION BID 08/18/20 11/24/21 mcg/actuation HFA aerosol inhaler (Flovent HFA) montelukast 10 mg tablet 10 mg PO QPM 08/18/20 11/24/21 pravastatin 20 mg tablet 20 mg PO BEDTIME 10/10/20 11/24/21 metformin 500 mg tablet 500 mg PO DAILY@08 11/04/20 11/24/21 folic acid 1 mg tablet 1 tab PO QAM 02/04/21 11/24/21 sennosides 8.6 mg tablet (senna) 1 tab PO BID PRN 02/04/21 11/24/21 thiamine HCl (vitamin B1) 100 mg 1 tab PO QAM 02/04/21 11/24/21 tablet citalopram 40 mg tablet 1 tab PO DAILY 05/05/21 11/24/21 quetiapine 25 mg tablet 1 tab PO BID 07/05/21 11/24/21 hydralazine 25 mg tablet 1 tab PO TID 11/24/21 11/24/21 ipratropium 0.5 mg-albuterol 3 mg 1 amp INHALATION QID PRN 11/24/21 11/24/21 (2.5 mg base)/3 mL nebulization soln Previous Rx's Medication Instructions Recorded metoprolol succinate 50 mg 50 mg PO DAILY 30 Days #30 tab 11/08/20 tablet,extended release 24 hr furosemide 20 mg tablet (Lasix) 10 mg PO DAILY #30 tab 05/10/21 omeprazole 40 mg capsule,delayed 40 mg PO DAILY@0630 30 Days #30 cap 05/10/21 release spironolactone 25 mg tablet 25 mg PO DAILY #30 tab 11/12/21 cefuroxime axetil 250 mg tablet 250 mg PO BID 3 Days #6 tab 11/26/21 Allergies Allergy/AdvReac Type Severity Reaction Status Date / Time advair Allergy Unknown Unknown Uncoded 11/24/21 17:31 paxil Allergy Unknown Unknown Uncoded 11/24/21 17:31 From PAXIL AdvReac Intermediate NAUSEA & Uncoded 11/24/21 17:31 VOMITING Review of Systems Review of Systems: Yes all other systems are reviewed and are negative [facility] Past Medical History Medical History Acute hyponatremia Alcohol use disorder Bipolar 1 disorder Bipolar I disorder Chronic hyponatremia Congestive heart failure COPD (chronic obstructive pulmonary disease) Coronary artery disease Dementia Diabetes Hypertension Korsakoff disease Osteoarthritis Schizophrenia Sleep apnea Surgical History Hx of appendectomy Social History Social History Household Members: Spouse Housing: Apartment Do you presently have visiting nurse or other home services: Yes Unable to assess alcohol history related to: Unknown Alcohol intake: never Patient Tobacco Use Status: Current everyday Tobacco user Tobacco use type: Cigarette Cigarettes Per Day: 5 Years Smoked: 52 e-Cigarette/Vaping Use: Currently Using Second Hand Smoke Exposure: Yes Substance Use Type: Marijuana Advance Directives: Yes Advance Directives on File: Yes Advance Directives Date on File: 10/10/20 service: No Current occupational status: unemployed, disabled and other Physical Exam Vital Signs: Vital Signs: Last Vital Signs Temp 98.2 F 12/20/21 00:33 Pulse 76 12/20/21 00:53 Resp 18 12/20/21 00:53 BP 143/72 H 12/20/21 00:53 Pulse Ox 96 12/20/21 00:53 BMI result Body Mass Index 37.2 Appearance: Alert. Oriented X3. No acute distress. Eyes: ++ pallor ENT: Pharynx normal. Oral Mucosa moist Neck: Normal inspection. Neck supple. CVS: Normal heart rate and rhythm. Pulses normal. Respiratory: No respiratory distress. Equal air entry bilateral, no wheezing/rales/rhonchi Abdomen: Soft and nontender. Bowel sounds are present, no mass palpable, no CVA tenderness Skin: Skin warm and dry. Normal skin color. Normal skin turgor. Extremities: trace lower extremity edema. No calf tenderness hypersensitive to touch right leg right lower extremity neurovascular intact Neuro: Oriented X 3. No motor deficit. No sensory deficit.No cerebellar signs , cranial nerves II-XII intact MDM - Extremity (Nontraumatic) MDM Narrative Medical decision making narrative: Patient with hypotonic hyponatremia as in the past secondary to drinking beer due to non osmotic ADH release (beer potomania) unable to check serum osmolarity or urine osmolality as machine is broke in our hospital but patient had similar presentation last year and had to be admitted to the ICU at this time patient oriented x3 no confusion seen will admit to ICU fluid restriction with aim of increasing sodium 4-6 meq per day Lab Data Attestation: I reviewed the patient's lab results. Result diagrams: 12/20/21 00:48 12/20/21 00:48 Labs: Lab Results 12/20/21 12/20/21 Range/Units 00:48 00:48 WBC 13.1 H (4.8-10.8) X10*3/uL RBC 3.08 L D (4.20-5.50) X10*6/uL Hgb 9.6 L (12.0-16.0) g/dl Hct 26.5 L (37.0-47.0) % MCV 86.0 (80.0-98.0) fL MCH 31.2 (27.0-33.0) pg MCHC 36.2 H (31.0-35.0) g/dl RDW 12.0 (11.0-16.0) % Plt Count 498 H D (160-400) X10*3/uL MPV 8.4 L (9.4-12.3) fL Immature Gran % (Auto) 2.5 H (0.0-0.4) % Neut % (Auto) 71.2 (45-73) % Lymph % (Auto) 15.9 L (20-40) % Greene % (Auto) 9.8 (2-11) % Eos % (Auto) 0.5 (0-4) % Baso % (Auto) 0.1 (0-2) % Lymph # (Auto) 2.1 (1.2-4.9) X10*3/uL Greene # (Auto) 1.3 H (0.1-1.2) X10*3/uL Eos # (Auto) 0.1 (0.0-0.4) X10*3/uL Baso # (Auto) 0.0 (0.0-0.2) X10*3/uL Abs Immat Gran (auto) 0.33 H (0.00-0.03) X10*3/uL Absolute Neuts (auto) 9.3 H (2.0-8.3) x10*3/uL Absolute Nucleated RBC 0.000 (0.0-0.012) X10*3/uL Nucleated RBC % (auto) 0.0 (0.0-0.2) /100WBC Sodium 115 L* (135-145) mmol/L Potassium 5.9 H D (3.3-5.1) mmol/L Chloride 85 L (96-108) mmol/L Carbon Dioxide 21 L (22-29) mmol/L Anion Gap 15 (12-20) BUN 20 H D (9-16) mg/dL Creatinine 1.00 (0.5-1.4) mg/dL Estim Creat Clear Calc 59.1 Estimated GFR 55 Random Glucose 100 (60-115) mg/dL Calcium 9.1 D (8.4-10.2) mg/dL Magnesium 2.0 (1.6-2.6) mg/dL Total Bilirubin 0.6 (0.0-1.0) mg/dL AST 20 (5-31) U/L ALT 15 (0-31) U/L Alkaline Phosphatase 130 H D (39-117) U/L Total Protein 7.0 D (6.5-8.0) g/dL Albumin 3.3 L (3.5-5.0) g/dL ECG Data Attestation EKG: I personally reviewed and interpreted this ECG as follows: Interpretation: Normal sinus rhythm heart rate 77 beats per minute normal intervals normal axis no acute STT wave changes Discharge Plan Discharge Clinical Impression: Acute hyponatremia, Acute hyperkalemia Patient Disposition: Admitted As Inpatient
[2021-12-20] MEDS: Morphine Sulfate 4 MG/ML CARTRIDGE IVPUSH (00:49)
[2021-12-20] MEDS: 0.9 % Sodium Chloride 1,000 ML 999 ML IV (00:49)
[2021-12-20] MEDS: ondansetron HCL 4 MG/2 ML VIAL IVPUSH (00:49)
[2021-12-20 01:02] LABS: MANUAL DIFF FLAG NO
[2021-12-20 01:03] LABS: Basophils Percent Auto 0.1 % (0-2); Eosinophils Absolute Auto 0.1 X10*3/uL (0.0-0.4); Eosinophils Percent Auto 0.5 % (0-4); Hematocrit 26.5 % (37.0-47.0); Hemoglobin 9.6 g/dl (12.0-16.0); Imm Gran Abs Auto 0.33 X10*3/uL (0.00-0.03); Imm Gran Pct Auto 2.5 % (0.0-0.4); Lymphocytes Absolute Auto 2.1 X10*3/uL (1.2-4.9); Lymphocytes Percent Auto 15.9 % (20-40); Mean Corpuscular HGB Conc 36.2 g/dl (31.0-35.0); Mean Corpuscular Hemoglobin 31.2 pg (27.0-33.0); Mean Platelet Volume 8.4 fL (9.4-12.3); Monocytes Absolute Auto 1.3 X10*3/uL (0.1-1.2); Monocytes Percent Auto 9.8 % (2-11); Neutrophils Absolute Auto 9.3 x10*3/uL (2.0-8.3); Neutrophils Percent Auto 71.2 % (45-73); Platelet Count 498 X10*3/uL (160-400); Red Blood Count 3.08 X10*6/uL (4.20-5.50); White Blood Count 13.1 X10*3/uL (4.8-10.8)
[2021-12-20 01:31] LABS: Alanine Aminotransferase 15 U/L (0-31); Albumin Level 3.3 g/dL (3.5-5.0); Alkaline Phosphatase 130 U/L (39-117); Anion Gap 15 (12-20); Aspartate Amino Transferase 20 U/L (5-31); Bilirubin Total 0.6 mg/dL (0.0-1.0); Blood Urea Nitrogen 20 mg/dL (9-16); Calcium 9.1 mg/dL (8.4-10.2); Carbon Dioxide 21 mmol/L (22-29); Chloride 85 mmol/L (96-108); Creatinine Clr Calc Pharmacy 59.1; Estimated Glomerular Filt Rate 55; Glucose Random 100 mg/dL (60-115); Potassium 5.9 mmol/L (3.3-5.1); Sodium 115 mmol/L (135-145)
--- NOTE | 2021-12-20 02:04 | ECG_ITS ---
Test Reason : WEAKNESS Blood Pressure : / mmHG Vent. Rate : 077 BPM Atrial Rate : 077 BPM P-R Int : 150 ms QRS Dur : 090 ms QT Int : 382 ms P-R-T Axes : 070 -15 047 degrees QTc Int : 432 ms Normal sinus rhythm Normal ECG When compared with ECG of 24-NOV-2021 18:00, No significant change was found Referred By: Mikel Dominguez Electronically Signed By:Wilber Kincaid
[2021-12-20] MEDS: Calcium Gluconate/NaCl,Iso-Osm 2 GM/100 ML PLAST..BAG IV (02:23)
[2021-12-20] MEDS: Sodium Zirconium Cyclosilicate 10 GM POWD.PACK PO ×2 (02:23→13:59)
--- NOTE | 2021-12-20 03:41 | P.HPCC_ITS ---
History of Present Illness Date of Service: 12/20/21 Attending physician on admission: Kelvin Harrison Chief Complaint: Leg pain This is a 65-year-old female? Vincentian-speaking only with a past medical history of congestive heart failure, COPD, DANO, CAD, diabetes, hypertension,? and ETOH abuse and multiple admissions for hyponatremia with latest admission for UTI 11/24/21-11/26/21 who presented to the emergency room with complaints of leg pain.? In the emergency the patient's vital signs stable,? but laboratory data showed? sodium of 115? ( patient baseline 123-128) and potassium 5.9. She has no neurological? deficits.? ?? ED course: normal saline bolus, lokelma and calcium gluconate? We will admit into the ICU for management hyponatremia? Review of Systems Review of Systems: Constitutional: No weakness No fever, chills, fatigue.? Eyes: No visual loss, blurred vision, double vision or yellow sclera ENT: No congestion, runny nose and sore throat, hearing loss Respiratory: No shortness of breath, cough. No sputum production. Cardiovascular: No chest pain, chest pressure or chest discomfort. Gastrointestinal: No nausea, vomiting, diarrhea. No abdominal pain or blood in stool. Genitourinary:No urinary frequency or incontinence. Neurologic: No headache, dizziness, syncope, unilateral weakness, ataxia, numbness or tingling in the extremities. No change in bowel or bladder control. Musculoskeletal: + Right ankle pain. No joint pain or stiffness. Hematologic/Lymphatics: No bleeding or bruising. No painful lymph nodes. Skin: + dry skin Endocrine: No sweating. No cold or heat intolerance. No polyuria or polydipsia. [facility] Past Medical History Medical History Acute hyponatremia Alcohol use disorder Bipolar 1 disorder Bipolar I disorder Chronic hyponatremia Congestive heart failure COPD (chronic obstructive pulmonary disease) Coronary artery disease Dementia Diabetes Hypertension Korsakoff disease Osteoarthritis Schizophrenia Sleep apnea Surgical History Surgical History Hx of appendectomy Social History Social History Household Members: Spouse Housing: Apartment Do you presently have visiting nurse or other home services: Yes Unable to assess alcohol history related to: Unknown Alcohol intake: never Patient Tobacco Use Status: Current everyday Tobacco user Tobacco use type: Cigarette Cigarettes Per Day: 5 Years Smoked: 52 e-Cigarette/Vaping Use: Currently Using Second Hand Smoke Exposure: Yes Substance Use Type: Marijuana Advance Directives: Yes Advance Directives on File: Yes Advance Directives Date on File: 10/10/20 service: No Current occupational status: unemployed, disabled and other Meds Allergies Allergy/AdvReac Type Severity Reaction Status Date / Time advair Allergy Unknown Unknown Uncoded 11/24/21 17:31 paxil Allergy Unknown Unknown Uncoded 11/24/21 17:31 From PAXIL AdvReac Intermediate NAUSEA & Uncoded 11/24/21 17:31 VOMITING Active Medications: Current Medications Folic Acid (Folic Acid 1 Mg Tablet) 1 mg PO DAILY [facility] Heparin Sodium (Porcine) (Heparin Sodium,Porcine 5,000 Unit/Ml Vial) 5,000 unit SUBCUT TID [facility] Calcium Gluconate (Calcium Gluconate) 2 gm in 100 mls @ 50 mls/hr IV ONCE ONE Stop: 12/20/21 04:07 Last Admin: 12/20/21 02:23 Dose: 50 mls/hr Documented by: Thiamine HCl (Thiamine Hcl 100 Mg Tablet) 100 mg PO DAILY [facility] Home Medications Medication Instructions Recorded Confirmed Last Taken Type aspirin 81 mg tablet,delayed 81 mg PO BEDTIME 08/18/20 11/24/21 11/23/21 History release fluticasone propionate 220 1 puff INHALATION BID 08/18/20 11/24/21 11/24/21 History mcg/actuation HFA aerosol inhaler (Flovent HFA) montelukast 10 mg tablet 10 mg PO QPM 08/18/20 11/24/21 11/23/21 History pravastatin 20 mg tablet 20 mg PO BEDTIME 10/10/20 11/24/21 11/23/21 History metformin 500 mg tablet 500 mg PO DAILY@08 11/04/20 11/24/21 11/23/21 History folic acid 1 mg tablet 1 tab PO QAM 02/04/21 11/24/21 11/23/21 History sennosides 8.6 mg tablet (senna) 1 tab PO BID PRN 02/04/21 11/24/21 11/23/21 History thiamine HCl (vitamin B1) 100 mg 1 tab PO QAM 02/04/21 11/24/21 11/23/21 History tablet citalopram 40 mg tablet 1 tab PO DAILY 05/05/21 11/24/21 11/23/21 History quetiapine 25 mg tablet 1 tab PO BID 07/05/21 11/24/21 11/23/21 History hydralazine 25 mg tablet 1 tab PO TID 11/24/21 11/24/21 11/23/21 History ipratropium 0.5 mg-albuterol 3 mg 1 amp INHALATION QID PRN 11/24/21 11/24/21 11/24/21 History (2.5 mg base)/3 mL nebulization soln Physical Exam Vital Signs: Vital Signs: Last Vital Signs Temp 98.2 F 12/20/21 00:33 Pulse 76 12/20/21 00:53 Resp 18 12/20/21 00:53 BP 143/72 H 12/20/21 00:53 Pulse Ox 96 12/20/21 00:53 BMI result Body Mass Index 37.2 Constitutional: Alert, x 3.? Does have history of dementia at times? forgetful HEENT: Normocephalic. Pupils are equal, round and reactive to light. Oropharynx clear, dry mucous membranes . Neck: Supple, Full range of motion. Respiratory: Expiratory wheezing in all lung pedro.? No resp distress. Cardiovascular: S1 S2 regular. No murmurs, rubs or gallops. Gastrointestinal: Abdomen soft, non-tender, non-distended. Normal bowel sounds. No pulsatile mass. No hepatosplenomegaly. Neurologic: ? Able to move all extremities? to command.Strength is normal all extremities.? Muscle skeletal: Report pain on Right ankle, but able to move. Mild edema on ankle noted.? Skin: Multiple bruises on bilateral lower extremities.?? Heme/Lymphatics/Immun: Palpation of neck reveals no swelling or tenderness of neck nodes. Psychiatric: Normal mood and affect Results Labs CBC and Chem 7: 12/20/21 00:48 12/20/21 00:48 Labs: Laboratory Results - last 24 hr 12/20/21 12/20/21 00:48 00:48 MCV 86.0 MCH 31.2 MCHC 36.2 H RDW 12.0 Plt Count 498 H D MPV 8.4 L Immature Gran % (Auto) 2.5 H Neut % (Auto) 71.2 Lymph % (Auto) 15.9 L [place] % (Auto) 9.8 Eos % (Auto) 0.5 Baso % (Auto) 0.1 Lymph # (Auto) 2.1 [place] # (Auto) 1.3 H Eos # (Auto) 0.1 Baso # (Auto) 0.0 Abs Immat Gran (auto) 0.33 H Absolute Neuts (auto) 9.3 H Absolute Nucleated RBC 0.000 Nucleated RBC % (auto) 0.0 Anion Gap 15 Estim Creat Clear Calc 59.1 Estimated GFR 55 Random Glucose 100 Calcium 9.1 D Magnesium 2.0 Total Bilirubin 0.6 AST 20 ALT 15 Alkaline Phosphatase 130 H D Total Protein 7.0 D Albumin 3.3 L Assessment and Plan (1) Acute hyponatremia: Status: Acute (2) Acute hyperkalemia: Status: Acute Plan 65-year-old female with a past medical history of ETOH abuse who was admitted into the ICU for hyponatremia with no neuro deficits?? ? Plan:? Neuro:? ?No acute issues Cardiac:? no acute issues Pulmonary:? No acute issues Renal:? Acute hyponatremia? - Patient has had multiple admissions for hyponatremia due to alcohol abuse. She does admit to drinking while home. Urine studies pending.? Normal saline bolus given in ED. Will do water restriction and regular diet.? Frequent neuro checks. Serial serum sodium.? ? Hyperkalemia:? patient does no EKG changes.? Treated with Lokelma in the ED.? will continue to follow closely Endo:? No acute issues.?? GI: no acute issues?? ID:? ?No acute issues Heme/Onc:? No acute issues. Psych:? ETOH abuse:? will closely monitor for? signs and symptoms of alcohol withdrawal.? Will start folic/thiamine Miscellaneous: ? no acute issues Diet:Diabetic with fluid restriction ? prophylaxis: Heparin, No GI prophylaxis at this time ? Critical care time:? X 45 minutes of critical care time ? Code? status:? FULL CODE? ? Case discussed with attending Dr Harrison? Critical Care Time 45
--- NOTE | 2021-12-20 05:05 | PC.NURSE ---
ADMIT TO 259-1..ALERT..ORIENTED X3...VSS..NSR..NO ECTOPY...SPEECH CLEAR..ARANDA...CALCIUM INFUSED PER NOV..INCONTINANT LARGE AMOUNT URINE ON ADMIT AND MODERATE AMOUNT URINE X2 AFTERWARDS...REMAINS WITH RIGHT LEG PAIN BUT FLRXRD LEG AND RAISES LEG FOR POSITIONING W/O DIFFICULTY..(+) BILATERAL PEDAL PULSES..NAPPING INTERMITTANTLY..ICU MICROSTRATEGY DEVELOPER AWARE
[2021-12-20 05:53] LABS: VBG Base Excess -1.2 mmol/L; VBG HCO3 23 mmol/L (22-26); VBG pCO2 36 mmHg; VBG pO2 49 mmHg
[2021-12-20 06:04] LABS: MANUAL DIFF FLAG NO
[2021-12-20 06:08] LABS: Basophils Percent Auto 0.2 % (0-2); Eosinophils Percent Auto 0.2 % (0-4); Eosinophils Percent Auto 0.3 % (0-4); Hematocrit 28.7 % (37.0-47.0); Hematocrit 29.1 % (37.0-47.0); Hemoglobin 10.1 g/dl (12.0-16.0); Hemoglobin 10.2 g/dl (12.0-16.0); Imm Gran Abs Auto 0.25 X10*3/uL (0.00-0.03); Imm Gran Pct Auto 2.5 % (0.0-0.4); Lymphocytes Absolute Auto 1.5 X10*3/uL (1.2-4.9); Lymphocytes Percent Auto 14.3 % (20-40); Lymphocytes Percent Auto 15.2 % (20-40); Mean Corpuscular HGB Conc 35.1 g/dl (31.0-35.0); Mean Corpuscular HGB Conc 35.2 g/dl (31.0-35.0); Mean Corpuscular Hemoglobin 30.7 pg (27.0-33.0); Mean Corpuscular Hemoglobin 30.9 pg (27.0-33.0); Mean Corpuscular Volume 87.7 fL (80.0-98.0); Mean Corpuscular Volume 87.8 fL (80.0-98.0); Mean Platelet Volume 8.2 fL (9.4-12.3); Mean Platelet Volume 8.4 fL (9.4-12.3); Monocytes Absolute Auto 1.4 X10*3/uL (0.1-1.2); Monocytes Percent Auto 13.5 % (2-11); Neutrophils Absolute Auto 6.9 x10*3/uL (2.0-8.3); Neutrophils Absolute Auto 7.1 x10*3/uL (2.0-8.3); Neutrophils Percent Auto 68.4 % (45-73); Neutrophils Percent Auto 69.2 % (45-73); Platelet Count 497 X10*3/uL (160-400); Platelet Count 514 X10*3/uL (160-400); Red Blood Count 3.27 X10*6/uL (4.20-5.50); Red Blood Count 3.32 X10*6/uL (4.20-5.50); Red Cell Distribution Width 12.1 % (11.0-16.0); White Blood Count 10.1 X10*3/uL (4.8-10.8); White Blood Count 10.2 X10*3/uL (4.8-10.8)
[2021-12-20 06:26] LABS: Alanine Aminotransferase 15 U/L (0-31); Albumin Level 3.2 g/dL (3.5-5.0); Alkaline Phosphatase 129 U/L (39-117); Anion Gap 17 (12-20); Aspartate Amino Transferase 22 U/L (5-31); Bilirubin Total 0.7 mg/dL (0.0-1.0); Blood Urea Nitrogen 18 mg/dL (9-16); Calcium 9.9 mg/dL (8.4-10.2); Carbon Dioxide 19 mmol/L (22-29); Chloride 91 mmol/L (96-108); Creatinine Clr Calc Pharmacy 51.6; Estimated Glomerular Filt Rate 58; Glucose Random 104 mg/dL (60-115); Magnesium 2.2 mg/dL (1.6-2.6); Phosphorus 5.1 mg/dL (2.7-4.5); Potassium 5.8 mmol/L (3.3-5.1); Sodium 121 mmol/L (135-145)
[2021-12-20] MEDS: Thiamine HCL 100 MG TABLET PO (07:53)
[2021-12-20] MEDS: Heparin Sodium,Porcine 5,000 UNIT/ML VIAL 5000 UNIT SUBCUT ×3 (07:53→20:04)
[2021-12-20] MEDS: Folic Acid 1 MG TABLET PO (07:54)
--- NOTE | 2021-12-20 08:35 | PHA.MEDREC ---
Pharmacy Consult ? Medication Reconciliation Pharmacy has completed the medication reconciliation. Med rec completed based on claim history and last dc.
[2021-12-20 09:53] LABS: Glucose, Whole Blood 122 mg/dL (60-115)
[2021-12-20 12:10] LABS: Anion Gap 15 (12-20); Blood Urea Nitrogen 19 mg/dL (9-16); Carbon Dioxide 22 mmol/L (22-29); Chloride 93 mmol/L (96-108); Estimated Glomerular Filt Rate 55; Glucose Random 147 mg/dL (60-115); Potassium 5.1 mmol/L (3.3-5.1)
[2021-12-20 12:19] LABS: Calcium 9.1 mg/dL (8.4-10.2); Sodium 124 mmol/L (135-145)
--- NOTE | 2021-12-20 13:59 | P.EN_ITS ---
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 with complaints of leg pain, lab data showed sodium of 115 and potassium 5.9 patient treated in the ER with normal saline bolus, Lokelma and calcium gluconate and subsequently admitted to ICU, patient transition down to medical floor this morning since sodium improved to 121 on examination patient awake alert no distress, no symptoms of withdrawal Acute on chronic Hyponatremia Likely due to beer potomania, sodium improved from 115-121-124, will repeat sodium in 4 hours if continue to trend up will place on D5W strongly recommended to abstain from alcohol/ obtain Nephro eval alcohol use disorder admits to drink beer 2-3 can of beer, last alcohol intake > 24 hours ago no signs of withdrawal, continue thiamine folic acid and CIWA , obtain care team consult hyperkalemia will repeat Lokelma and follow labs, question related to spironolactone. History of chronic diastolic congestive heart failure no acute exacerbation, hold diuretics due to low BP resume prior to discharge. History of hypertension on multiple antihypertensive at home currently soft blood pressure hold medications follow BP closely, resume beta blockers of blood pressure allows. History of bipolar disorder/schizophrenia will resume home medication DVT prophylaxis heparin subq Code status full code .
[2021-12-20 14:34] LABS: Venous Blood Gas Refer to POC result
--- NOTE | 2021-12-20 15:13 | MHC.CM.PN ---
Met with pt to discuss d/c planning: pt states she resides with spouse, Juanjo and has daily compensated ASSOCIATE DIRECTOR [employer] care givers who can assist her with transportation to appointments. She also uses a PT-1. Pt has working diabetic equipment and uses a walker on occasion. Pt requests BLS transport home d/t her weakness . Pt states she has everything she needs at home. HCP on file and verified, IMM given and in chart. Of note, pt is not vaccinated. CM to follow for any d/c changes
[2021-12-20] MEDS: Dextrose 5 % 500 ML 100 ML IVCONT (15:25)
[2021-12-20] MEDS: Albuterol/Iprat 2.5/0.5MG 3 ML AMPUL.NEB INHALE (15:28)
--- NOTE | 2021-12-20 15:36 | PC.NURSE ---
Addendum entered by Mable Belcher RN 12/20/21 15:38: Dr. Saravia made aware. Original Note: This RN received call from lab stating the urine osmolality test will need to be sent out to [facility] and results will be delayed.
[2021-12-20 19:51] LABS: Anion Gap 15 (12-20); Blood Urea Nitrogen 24 mg/dL (9-16); Calcium 8.5 mg/dL (8.4-10.2); Carbon Dioxide 22 mmol/L (22-29); Chloride 92 mmol/L (96-108); Creatinine Clr Calc Pharmacy 45.4; Estimated Glomerular Filt Rate 50; Glucose Random 129 mg/dL (60-115); Sodium 124 mmol/L (135-145)
[2021-12-20] MEDS: Aspirin Enteric Coated 81 MG TABLET.DR PO (20:04)
[2021-12-20] MEDS: Pravastatin Sodium 20 MG TABLET PO (20:04)
[2021-12-20] MEDS: Montelukast Sodium 10 MG TABLET PO (20:04)
[2021-12-20] MEDS: QUEtiapine Fumarate 25 MG TABLET PO (20:04)
[2021-12-20] MEDS: Fluticasone Propionate 250 MCG BLST.W.DEV 1 PUFF INHALE (20:14)
[2021-12-20 21:30] LABS: COVID-19 Test Negative (Negative); IDNOW Serial# 16C4AD1C
[2021-12-21] VITALS (8 sets, daily range): BP systolic 96–136; BP diastolic 58–66; PULSE 84–102; RESP 16–20; TEMP 36.6–36.8; O2SAT 94–97
--- NOTE | 2021-12-21 00:26 | CONS_ITS ---
DATE OF SERVICE: REASON FOR CONSULTATION: Consult requested by the medical team to evaluate and help in management of patient with hyponatremia. HISTORY OF PRESENT ILLNESS: The patient is a 66-year-old Israeli-speaking female with past medical history of CHF, COPD, history of obstructive sleep apnea, hypertension, diabetes, history of hyponatremia in the past and has been followed up by us with past sodium levels as low as 110 on multiple occasions, who presented to the hospital with complaints of leg pain. She has had history of UTI for a week in the end of October. In the ER, the patient had workup done, which showed that her sodium level was low at 115. Her potassium was 5.9. There was no neurological deficit. The patient did receive some IV fluids in the ER, but it was discontinued. The sodium level now is 124. She also got Lokelma and calcium gluconate for hyperkalemia. There was apparently no diarrhea. There is no dysuria, urgency of urination. REVIEW OF SYSTEMS: As noted above. Other systems reviewed negative. PAST MEDICAL HISTORY: History of hyponatremia in the past. Alcohol use disorder, bipolar disorder, chronic hyponatremia, history of CHF, COPD, coronary artery disease, dementia, diabetes, hypertension, Korsakoff's disease, osteoarthritis, schizophrenia, and sleep apnea. PAST SURGERIES: History of appendectomy. PERSONAL AND SOCIAL HISTORY: The patient lives at home with her spouse. Current every day tobacco user. Currently, vaping as well. Uses marijuana. Alcohol use, unknown. ALLERGIES: INCLUDE ALLERGIES TO ADVAIR, PAXIL. MEDICATIONS: At home include aspirin, fluticasone, montelukast, pravastatin, metformin, folic acid, sennosides, thiamine, citalopram, quetiapine, hydralazine, ipratropium. PHYSICAL EXAMINATION: GENERAL: The patient is resting in the bed. Awake, alert, oriented x3, in no significant distress. VITAL SIGNS: Blood pressure was 114/61, pulse 72, afebrile. HEENT: Shows pupils equal bilaterally to light. No jugular venous distention is noted. Neck was supple. Mucosa moist. There is no scleral icterus or conjunctival congestion. CARDIOVASCULAR SYSTEM: S1, S2 without rub or murmur. RESPIRATORY SYSTEM: Air entry decreased in bases. ABDOMEN: Soft, distended. No guarding. No rigidity. Bowel sounds normal. EXTREMITIES: No edema. There is no peripheral cyanosis or clubbing. NEURO: Essentially nonfocal. LABORATORY DATA: Labs done today, urinalysis, not available. Sodium 124, potassium 5.1, chloride 93, CO2 of 23, BUN was 19, creatinine 1.0, estimated GFR 49, glucose 147, calcium 9.1, albumin 3.2. Admission sodium is 115, potassium 5.9. IMPRESSION: 1. A 66-year-old female with hyponatremia. The patient is clinically euvolemic and there are no neurological symptoms. 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 She was also on selective serotonin reuptake inhibitor, escitalopram, which can also worsen hyponatremia. Her sodium level is improved at the present time and she is not on any fluids. 2. Hyperkalemia, which is resolved. 3. Rapid correction of sodium of about 9 mEq over a period of 12 hours. 4. Hypertension. 5. Diabetes. RECOMMENDATION: At this juncture, I recommend fluid restriction at 1200 cc. I also recommend checking serum osmolality, urine osmolality and urine sodium level. As patient's sodium level is corrected rapidly, I have initiated the patient on D5 water at 100 mL/h times 500 cc and repeating the sodium. I recommend checking a serum sodium level q.4 hourly. The patient's potassium level is improved and I recommended a low-potassium diet. I discussed with the medical team regarding use of Lexapro, which can cause hyponatremia. We will continue to follow the patient closely. Thank you for allowing me to participate in medical management of the patient. MD VICTORINO Dickey/DERRELL / [phone]
[2021-12-21 06:01] LABS: Anion Gap 15 (12-20); Blood Urea Nitrogen 30 mg/dL (9-16); Calcium 8.3 mg/dL (8.4-10.2); Carbon Dioxide 20 mmol/L (22-29); Chloride 97 mmol/L (96-108); Creatinine Clr Calc Pharmacy 42.2; Estimated Glomerular Filt Rate 46; Glucose Random 175 mg/dL (60-115); Potassium 4.9 mmol/L (3.3-5.1); Sodium 127 mmol/L (135-145)
[2021-12-21] MEDS: Omeprazole 40 MG CAPSULE.DR PO (06:06)
[2021-12-21] MEDS: Fluticasone Propionate 250 MCG BLST.W.DEV 1 PUFF INHALE ×2 (07:47→21:02)
[2021-12-21] MEDS: Dextrose 5 % 1,000 ML 50 ML IVCONT (07:56)
[2021-12-21] MEDS: Thiamine HCL 100 MG TABLET PO (07:58)
[2021-12-21] MEDS: QUEtiapine Fumarate 25 MG TABLET PO ×2 (07:58→20:03)
[2021-12-21] MEDS: Folic Acid 1 MG TABLET PO (07:58)
[2021-12-21] MEDS: Heparin Sodium,Porcine 5,000 UNIT/ML VIAL 5000 UNIT SUBCUT ×3 (07:58→20:03)
[2021-12-21] MEDS: Escitalopram Oxalate 20 MG TABLET PO (07:58)
[2021-12-21 08:12] LABS: Osmolality Urine 218 mosm/kg (373-1093)
[2021-12-21 08:12] LABS: Osmolality, Serum 266 mosm/kg (281-305)
--- NOTE | 2021-12-21 08:14 | HO.PM.IMPN ---
Subjective Subjective Date of Service: 12/21/21 Interval History: hyponatremia,alcohol withdrawal Review of Systems Sodium is 127 this morning, patient denies any chest pain or shortness of breath or abdominal pain or fever chills or cough or phlegm. Physical Exam Vital Signs: Vital Signs: Last Vital Signs Temp 98 F 12/21/21 04:00 Pulse 90 12/21/21 07:47 Resp 20 12/21/21 07:47 BP 95/48 L 12/20/21 22:00 Pulse Ox 94 12/21/21 04:00 BMI result Body Mass Index 25.6 Appearance: Alert.? Oriented X3.? not in distress.?. cvs: rrr, [id number] , no murmur res: clear to auscultation ,no rhonchii or wheezing abd: no rebound or guarding ,nt, bs present. ext pulses present , no cyanosis . neuro: axo3 , nonfocal. Objective Data Active Medications Albuterol Sulfate (Albuterol Sulfate 90 Mcg 8 Gm Inhaler) 2 puff INHALE Q4H PRN PRN Reason: Shortness Of Breath Albuterol/Ipratropium (Albuterol/Iprat 2.5/0.5mg 3 Ml Ampul.Neb) 3 ml INHALE QID PRN PRN Reason: Wheezing Last Admin: 12/20/21 15:28 Dose: 3 ml Documented by: DESMOND Aspirin (Aspirin Enteric Coated 81 Mg Tablet.Dr) 81 mg PO BEDTIME [facility] Last Admin: 12/20/21 20:04 Dose: 81 mg Documented by: YVES Escitalopram Oxalate (Escitalopram Oxalate 20 Mg Tablet) 20 mg PO DAILY [facility] Last Admin: 12/21/21 07:58 Dose: 20 mg Documented by: ANA Fluticasone Propionate (Fluticasone Propionate 250 Mcg Blst.W.Dev) 1 puff INHALE RBID [facility] Last Admin: 12/21/21 07:47 Dose: 1 puff Documented by: DESMOND Folic Acid (Folic Acid 1 Mg Tablet) 1 mg PO DAILY [facility] Last Admin: 12/21/21 07:58 Dose: 1 mg Documented by: ANA Heparin Sodium (Porcine) (Heparin Sodium,Porcine 5,000 Unit/Ml Vial) 5,000 unit SUBCUT TID [facility] Last Admin: 12/21/21 07:58 Dose: 5,000 unit Documented by: ANA Dextrose (D5w) 1,000 mls @ 50 mls/hr IVCONT .Q20H [facility] Last Admin: 12/21/21 07:56 Dose: 50 mls/hr Documented by: ANA Montelukast Sodium (Montelukast Sodium 10 Mg Tablet) 10 mg PO BEDTIME [facility] Last Admin: 12/20/21 20:04 Dose: 10 mg Documented by: YVES Omeprazole (Omeprazole 40 Mg Capsule.Dr) 40 mg PO DAILY@0630 [facility] Last Admin: 12/21/21 06:06 Dose: 40 mg Documented by: YVES Pravastatin Sodium (Pravastatin Sodium 20 Mg Tablet) 20 mg PO BEDTIME [facility] Last Admin: 12/20/21 20:04 Dose: 20 mg Documented by: YVES Quetiapine Fumarate (Quetiapine Fumarate 25 Mg Tablet) 25 mg PO BID [facility] Last Admin: 12/21/21 07:58 Dose: 25 mg Documented by: ANA Senna (Sennosides 8.6 Mg Tablet) 8.6 mg PO BID PRN PRN Reason: constipation Thiamine HCl (Thiamine Hcl 100 Mg Tablet) 100 mg PO DAILY [facility] Last Admin: 12/21/21 07:58 Dose: 100 mg Documented by: ANA Labs CBC & Chem 7: 12/20/21 05:48 12/21/21 09:52 Labs: Laboratory Results - last 24 hr 12/20/21 12/20/21 12/20/21 09:49 11:41 15:23 Anion Gap 15 Estim Creat Clear Calc 49.0 Estimated GFR 55 POC Glucose 122 H Random Glucose 147 H Osmolality Calcium 9.1 D Urine Osmolality 218 L COVID-19 (ZAKIA) COVID-19 Clin Com 12/20/21 12/20/21 12/20/21 15:31 19:13 20:44 Anion Gap 15 Estim Creat Clear Calc 45.4 Estimated GFR 50 POC Glucose Random Glucose 129 H Osmolality 266 L Calcium 8.5 D Urine Osmolality COVID-19 (ZAKIA) Negative COVID-19 Clin Com See Note 12/21/21 05:20 Anion Gap 15 Estim Creat Clear Calc 42.2 Estimated GFR 46 POC Glucose Random Glucose 175 H Osmolality Calcium 8.3 L Urine Osmolality COVID-19 (ZAKIA) COVID-19 Clin Com Assessment and Plan (1) Acute hyponatremia: Status: Acute (2) Acute hyperkalemia: Status: Acute Plan ?65-year-old Danish-speaking female with past medical history of congestive heart failure, COPD, obstructive sleep apnea, coronary artery disease, diabetes hypertension and ongoing alcohol use presented to [facility]? early childhood associate with complaints of leg pain, lab data showed sodium of 115 and potassium 5.9 patient treated in the ER with normal saline bolus, Lokelma and calcium gluconate and subsequently admitted to ICU, patient transition down to medical floor this morning since sodium improved to 121 ?1.Acute on chronic Hyponatremia: Likely due to beer potomania, sodium improved from [phone], will repeat sodium in 4 hours added d5w 50cc /hr strongly recommended to abstain from alcohol obtain Nephro eval noted ,nephro follow up today 2.alcohol use disorder:admits to drink beer 2-3 can of beer, last alcohol intake > 24 hours ago? no signs of withdrawal, continue thiamine folic acid and CIWA , obtain care team consult 3.hyperkalemia: gave Lokelma and improved , question related to spironolactone. 4.History of chronic diastolic congestive heart failure no acute exacerbation, hold diuretics due to low BP resume prior to discharge. 5.History of hypertension on multiple antihypertensive at home currently soft blood pressure hold medications follow BP closely, resume beta blockers of blood pressure allows. 6.History of bipolar disorder/schizophrenia will resume home medication 7.DVT prophylaxis heparin subq Pt eval Code status :full code Patient need inpatient stay due to hyponatremia( with quick correction), also has low blood pressure. Quality Stroke Does the patient have a stroke diagnosis?: No VTE Prior VTE?: No VTE Risk Level:: Medical - moderate - high VTE Device Contraindication: Treatment Not Indicated VTE Drug Contraindication: N/A - Med Ordered
[2021-12-21 10:37] LABS: Sodium 129 mmol/L (135-145)
--- NOTE | 2021-12-21 12:35 | MHC.CM.PN ---
Per discussion with pt's RN, pt c/o leg pain impeding ambulation: PT eval to be ordered for 12/22. Pt had been to [facility] recently and may require return. Pt resides with spouse Juanjo and has a compensated POWER PLANT ELECTRICIAN daily to assist with care needs. CM to follow
--- NOTE | 2021-12-21 13:47 | PM.PNNEP ---
Subjective Subjective Date of Service: 12/21/21 Interval history: hyponatremia,alcohol withdrawal Physical Exam Vital Signs: Vital Signs: Last Vital Signs Temp 98 F 12/21/21 04:00 Pulse 90 12/21/21 11:55 Resp 16 12/21/21 11:55 BP 136/62 12/21/21 11:55 Pulse Ox 97 12/21/21 11:55 BMI result Body Mass Index 25.6 Appearance: Alert.? Oriented X3.? not in distress.?. cvs: rrr, [id number] , no murmur res: clear to auscultation ,no rhonchii or wheezing abd: no rebound or guarding ,nt, bs present. ext pulses present , no cyanosis . neuro: axo3 , nonfocal. Objective Data Labs CBC & Chem 7: 12/20/21 05:48 12/21/21 09:52 Labs: Laboratory Results - last 24 hr 12/20/21 12/20/21 12/20/21 15:23 15:31 19:13 Sodium 124 L Potassium 5.0 Chloride 92 L Carbon Dioxide 22 Anion Gap 15 BUN 24 H Creatinine 1.08 Estim Creat Clear Calc 45.4 Estimated GFR 50 Random Glucose 129 H Osmolality 266 L Calcium 8.5 D Urine Osmolality 218 L COVID-19 ([facility]) COVID-19 Clin Com 12/20/21 12/21/21 12/21/21 20:44 05:20 09:52 Sodium 127 L 129 L Potassium 4.9 Chloride 97 Carbon Dioxide 20 L Anion Gap 15 BUN 30 H Creatinine 1.16 Estim Creat Clear Calc 42.2 Estimated GFR 46 Random Glucose 175 H Osmolality Calcium 8.3 L Urine Osmolality COVID-19 ([facility]) Negative COVID-19 Clin Com See Note Procedures Date of Service Date of Service: 12/21/21 Assessment & Plan Assessment and plan (1) Acute hyponatremia: Status: Acute Plan 1. A 66-year-old female with hyponatremia.? The patient is clinically euvolemic and there are no neurological symptoms.? 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 She was also on selective serotonin reuptake inhibitor,Lexapro , which can also worsen hyponatremia.? Her sodium level is improved at the present time and she is not on any fluids. 2. Hyperkalemia, which is resolved. 3. Rapid correction of sodium of about 9 mEq over a period of 12 hours. 4. Hypertension. 5. Diabetes. ? RECOMMENDATION:? Continue fluid restriction at 1200 cc.? checking serum osmolality, urine osmolality and urine sodium level.? Agree with lowering D5 water at 50 mL/h times 500 cc and repeating the sodium.? I recommend checking a serum sodium level q.12 hourly. ? The patient's potassium level is improved and I recommended a low-potassium diet. ? I discussed with the medical team regarding use of Lexapro, which can cause hyponatremia. ? We will continue to follow the patient closely. ? Thank you for allowing me to participate in medical management of the patient. ? ? ? Pierre Mccurdy MD Time Spent With Patient Time: Total time spent is greater than 50% in coordination of care (as documented) at patient's floor/unit and/or counseling patient: Progress Note: Quality Stroke Does the patient have a stroke diagnosis?: No
[2021-12-21] MEDS: Albuterol/Iprat 2.5/0.5MG 3 ML AMPUL.NEB INHALE (17:03)
[2021-12-21] MEDS: Aspirin Enteric Coated 81 MG TABLET.DR PO (20:03)
[2021-12-21] MEDS: Pravastatin Sodium 20 MG TABLET PO (20:03)
[2021-12-21] MEDS: Montelukast Sodium 10 MG TABLET PO (20:03)
[2021-12-21 21:32] LABS: Sodium 127 mmol/L (135-145)
[2021-12-22] VITALS: BP 113/55; PULSE 106; RESP 17; TEMP 36.4; O2SAT 98
[2021-12-22 00:13] VITALS: PULSE 114; RESP 18; O2SAT 97
[2021-12-22] MEDS: Albuterol/Iprat 2.5/0.5MG 3 ML AMPUL.NEB INHALE (00:16)
[2021-12-22] MEDS: traZODone HCL 25 MG HALFTAB PO (00:43)
[2021-12-22 04:00] VITALS: BP 108/53; PULSE 82; RESP 17; TEMP 36.4; O2SAT 98
[2021-12-22 06:00] VITALS: BMI 25.0
[2021-12-22] MEDS: Omeprazole 40 MG CAPSULE.DR PO (06:03)
[2021-12-22 06:50] LABS: Anion Gap 11 (12-20); Blood Urea Nitrogen 32 mg/dL (9-16); Carbon Dioxide 25 mmol/L (22-29); Chloride 99 mmol/L (96-108); Creatinine Clr Calc Pharmacy 52.2; Estimated Glomerular Filt Rate 60; Glucose Random 108 mg/dL (60-115); Sodium 130 mmol/L (135-145)
[2021-12-22 07:26] VITALS: BP 118/83; PULSE 91; RESP 18; TEMP 37.2; O2SAT 97
[2021-12-22] MEDS: Fluticasone Propionate 250 MCG BLST.W.DEV 1 PUFF INHALE (07:27)
[2021-12-22 07:28] VITALS: PULSE 92; RESP 20; O2SAT 96
[2021-12-22 07:37] LABS: Glucose, Whole Blood 118 mg/dL (60-115)
[2021-12-22] MEDS: Folic Acid 1 MG TABLET PO (09:51)
[2021-12-22] MEDS: Escitalopram Oxalate 20 MG TABLET PO (09:51)
[2021-12-22] MEDS: Thiamine HCL 100 MG TABLET PO (09:51)
[2021-12-22] MEDS: QUEtiapine Fumarate 25 MG TABLET PO (09:51)
[2021-12-22] MEDS: Heparin Sodium,Porcine 5,000 UNIT/ML VIAL 5000 UNIT SUBCUT (09:52)
[2021-12-22 10:53] VITALS: BP 133/61; PULSE 88; RESP 18; TEMP 37.5; O2SAT 99
--- NOTE | 2021-12-22 11:06 | PM.PNNEP ---
Subjective Subjective Date of Service: 12/22/21 Interval history: Seen and examined, events noted Physical Exam Vital Signs: Vital Signs: Last Vital Signs Temp 99.5 F 12/22/21 10:53 Pulse 88 12/22/21 10:53 Resp 18 12/22/21 10:53 BP 133/61 12/22/21 10:53 Pulse Ox 99 12/22/21 10:53 BMI result Body Mass Index 25.0 Objective Data Labs CBC & Chem 7: 12/20/21 05:48 12/22/21 05:57 Labs: Laboratory Results - last 24 hr 12/21/21 12/22/21 12/22/21 21:09 05:57 07:25 Sodium 127 L 130 L Potassium 5.0 Chloride 99 Carbon Dioxide 25 Anion Gap 11 L BUN 32 H Creatinine 0.93 Estim Creat Clear Calc 52.2 Estimated GFR 60 POC Glucose 118 H Random Glucose 108 Calcium 9.0 D Procedures Date of Service Date of Service: 12/22/21 Assessment & Plan Assessment and plan (1) Acute hyponatremia: Status: Acute Plan 1. Recurrent episodes of severe hypoNa ( at least that we know of in past 6 monhts) and presentation c/w combination of low solute intake and polydipsia as she uss corrects very fast need to r/o adrenal insuff and hypothyroid--dibutful 2. HF: ? on routine diuretiics 3. DM 4. ETOH 5. Polydipsia and low solute intaje----at bedside large full pitcher of water despite being on fluid restriction REC: check cortsiol and TSH; need to d/w PT/family what can be done to avoid excess PO fluid intake We will continue to follow the patient closely. ? Thank you for allowing me to participate in medical management of the patient. ? ? ? Pierre Mccurdy MD Time Spent With Patient Time: Total time spent is greater than 50% in coordination of care (as documented) at patient's floor/unit and/or counseling patient: Progress Note: Quality Stroke Does the patient have a stroke diagnosis?: No
[2021-12-22 11:19] LABS: Glucose, Whole Blood 95 mg/dL (60-115)
--- NOTE | 2021-12-22 11:53 | PM.DS ---
DS: Providers Provider Date of Service: 12/22/21 Date of admission: 12/20/21 02:11 Primary care physician: Ryder Monique MD Consults: 12/20/21 11:25 Consult to Nephrology Routine Consulting Provider: Pierre Mccurdy Reason for consultation: hyponatremia/hyperkalemia Has provider been notified: No DS: Diagnosis Discharge Diagnosis (1) Acute hyponatremia: Status: Acute (2) Acute hyperkalemia: Status: Acute DS: Summary Hospital Course Hospital Course: 65-year-old female? Bahamian-speaking only with a past medical history of congestive heart failure, COPD, DANO, CAD, diabetes, hypertension,? and ETOH abuse and multiple admissions for hyponatremia with latest admission for UTI 11/24/21-11/26/21 who presented to the emergency room with complaints of leg pain.? In the emergency the patient's vital signs stable,? but laboratory data showed? sodium of 115? ( patient baseline 123-128) and potassium 5.9. She has no neurological? deficits.? ?? ED course: normal saline bolus, lokelma and calcium gluconate?. Hospital course: Patient was admitted for hyponatremia-has recurrent episodes: Probably related to excessive fluid intake, alcohol use, also family dynamics. Patient was treated with fluid restriction, holding diuretics: Sodium improved to 130 range. Patient is to follow-up with [id number]-[id number] renal function and electrolytes and currently nephrology recommended to stop spironolactone( due to hyperkalemia) further use as per Nephrology. Patient was advised for fluid restrictions 1.5 L day. Patient also has softer blood pressure which is improving, metoprolol started at low dose, hydralazine stopped as per softer blood pressure. Patient was seen by PT recommended home with services. Above was discussed with the patient in detail with the help of american sign language interpreter. Time Spent with Patient Time attestation: Total time spent providing and/or coordinating discharge services: Discharge coordination time: Greater than 30 minutes Quality: Stroke Does the patient have a stroke diagnosis?: No Physical Exam Vital Signs: Vital Signs: Last Vital Signs Temp 99.5 F 12/22/21 10:53 Pulse 88 12/22/21 10:53 Resp 18 12/22/21 10:53 BP 133/61 12/22/21 10:53 Pulse Ox 99 12/22/21 10:53 BMI result Body Mass Index 25.0 Appearance: Alert.? Oriented X3.? not in distress.?. cvs: rrr, [id number] , no murmur res: clear to auscultation ,no rhonchii or wheezing abd: no rebound or guarding ,nt, bs present. ext pulses present , no cyanosis . neuro: axo3 , nonfocal. DS: Data Data Completed and Pending Completed studies during hospitalization [Text1]: Procedures Detoxification Services for Substance Abuse Treatment (05/01/21) Insertion of Infusion Device into Superior Vena Cava, Percutaneous Approach (05/01/21) Labs on day of discharge: Laboratory Results - last 24 hr 12/21/21 12/22/21 12/22/21 21:09 05:57 07:25 Sodium 127 L 130 L Potassium 5.0 Chloride 99 Carbon Dioxide 25 Anion Gap 11 L BUN 32 H Creatinine 0.93 Estim Creat Clear Calc 52.2 Estimated GFR 60 POC Glucose 118 H Random Glucose 108 Calcium 9.0 D 12/22/21 10:51 Sodium Potassium Chloride Carbon Dioxide Anion Gap BUN Creatinine Estim Creat Clear Calc Estimated GFR POC Glucose 95 Random Glucose Calcium Additional Comments Additional comments: XR/XR ankle RT min 3V IMPRESSION: No fracture or dislocation seen. Discharge Plan Discharge Patient Disposition: Home Health Service Discharge Diagnosis: Hyponatremia, hyperkalemia Referrals: [facility] [Outside] - 1 Day (LONG-TERM AND HOME PHYSICAL THERAPY) Name,MD Ryder [Primary Care Provider] - 1 Week Discharge Medications: Continued aspirin 81 mg tablet,delayed release (DR/EC) 81 mg PO BEDTIME 0RF montelukast 10 mg tablet 10 mg PO BEDTIME 0RF Flovent HFA 220 mcg/actuation HFA aerosol inhaler 1 puff inhalation BID 0RF pravastatin 20 mg Tablet 20 mg PO BEDTIME 0RF citalopram 40 mg tablet 1 tab PO DAILY 0RF omeprazole 40 mg Capsule,Delayed Release(Dr/Ec) 40 mg PO DAILY@0630 30 Days Qty: 30 0RF furosemide [Lasix] 20 mg tablet 10 mg PO DAILY Qty: 30 0RF metformin 500 mg tablet 500 mg PO DAILY@08 0RF Rx Instructions: TAKE WITH FOOD sennosides [senna] 8.6 mg tablet 1 tab PO BID PRN (Reason: constipation) 0RF thiamine HCl (vitamin B1) 100 mg tablet 1 tab PO DAILY 0RF folic acid 1 mg tablet 1 tab PO DAILY 0RF quetiapine 25 mg tablet 1 tab PO BID 0RF ipratropium-albuterol 0.5 mg-3 mg(2.5 mg base)/3 mL solution for nebulization 1 amp inhalation QID PRN (Reason: Wheezing) 0RF albuterol sulfate [Ventolin HFA] 90 mcg/actuation HFA aerosol inhaler 2 inh inhalation Q4H PRN (Reason: Shortness Of Breath) 0RF Changed metoprolol succinate 50 mg Tablet Extended Release 24 Hr 25 mg PO DAILY 30 Days Qty: 30 0RF Protocol: Hold for SBP/HR < HOLD for SBP < : 90 HOLD for HR < : 60 Held spironolactone 25 mg tablet 25 mg PO DAILY Qty: 30 0RF Hold Instructions: hold until repeat bmp with pcp outpatiently, restart as per pcp and nephro. hydralazine 25 mg tablet 1 tab PO TID 0RF Hold Instructions: hold until seen by pcp , may need to start as per blood pressure. Discharge Orders: Discharge Order (Routine); Ordered 12/22/21 Ordered By: Adelaide Patiño Diet: advance to usual diet, diabetic diet and other Activity on Discharge: As tolerated Stand Alone Forms: Patient Portal Discharge page Other Ambulatory Orders: Basic Metabolic Panel (Routine) Timeframe: 1 Week Facility: [facility] - Location: Laboratory Ordered By: Adelaide Patiño Care Plan Goals: Patient was admitted for hyponatremia-has recurrent episodes: Probably related to excessive fluid intake, alcohol use, also family dynamics. Patient was treated with fluid restriction, holding diuretics: Sodium improved to 130 range. Patient is to follow-up with Vswuyjozwu-iofdwb-[id number] renal function and electrolytes and currently nephrology recommended to stop spironolactone( due to hyperkalemia) further use as per Nephrology. Patient was advised for fluid restrictions 1.5 L day. Patient also has softer blood pressure which is improving, metoprolol started at low dose, hydralazine stopped as per softer blood pressure. Above was discussed with the patient in detail id the help of american sign language interpreter. Health Concerns: As above. Plan of Treatment: As above. Assessment: As above. Discharge Date/Time: 12/22/21 14:55
--- NOTE | 2021-12-22 12:02 | P.F2F_ITS ---
Service Date Service Date: 12/22/21 Encounter Date of encounter: 12/22/21 Reasons for Services Signs and symptoms assessed: Hyponatremia, hypokalemia Reason for detention: medication management, medication treatment and teach disease management Reason for physical therapy: home safety and mobility, therapeutic exercises, restore joint function, gait/transfer training, assess need for DME, ADL training, energy conservation and other MD Overseeing Care: Ryder Name Homebound: Leaving the home is medically contraindicated at this time without the asist of a device and/or another person due th the listed conditions above and below. Reason homebound: weakness related to hospital stay Homebound supporting statement: Patient has recurrent hyponatremia and multiple medical comorbidities, generalized weak need help to go to appointments. Certification: Based on the above findings, I certify that this patient is confined to the home and needs intermittent detention care, physical therapy and/or speech therapy, or continues to need occupational therapy. The patient is under my care, and I have initiated the establishment of the plan of care. The patient will be followed by a physician who will periodically review the plan of care.
--- NOTE | 2021-12-22 12:47 | MHC.CM.PN ---
Addendum entered by Shanika Ko RN 12/22/21 13:20: [facility] WILL PROVIDE SERVICES FOR PT W/SOC TOMORROW 12/22/21 Addendum entered by Shanika Ko RN 12/22/21 12:58: CARE TEAM CONSULT PLACED FOR ETOH, ANTIC THIS WILL NOT HOLD UP D/C. Original Note: PT MEDICALLY CLEARED FOR D/C HOME W/[facility] FOR SN AND HOME PT AND ACTION FOR BLS TRANSPORT, CM CONTACTED PT'S NABEEL AT NUMBER ON FILE AND HE IS AGREEABLE TO 2:30PM D/C AND REPORTS HE WILL BE THERE WHEN PT ARRIVES HOME.
--- NOTE | 2021-12-22 13:31 | MHC.RECOVSUP ---
Recovery Support note: This life insurance underwriter met with the 66 year old Macedonian speaking female in [employer] with an [facility] contract officer to discuss her alcohol use and recovery supports. Patient reports drinking 5 beers a day however expresses that she wants to stop drinking, stating it's not good for my health. Patient reports she has had periods of sobriety and that she is confident in her ability to stop drinking. Patient reports I wasn't born with the drinking problem. Discussed recovery supports with patient. Patient reports she is not interested in a referral to therapist or investment recovery technician. Patient passionately reiterated that she will be able to stop drinking on her own without issue and that she is not interested in supports.
== END 2021-12-22 14:55 | disposition home health service (06) | DRG 641 ==
LOC: HO.ED 02:08 → HO.EDOVER 02:17 → HO.ICU 02:35 → HO.S3 12-21 23:17
PROVIDERS: Hospitalist; Registered Nurse Community Health; Admitting Provider Internal Medicine Pulmonary Disease; Emergency Provider Internal Medicine; PCP Internal Medicine Geriatric Medicine; Visit Provider Internal Medicine
DX: E87.1 Hypo-osmolality and hyponatremia (principal); F31.9 Bipolar disorder, unspecified; E87.5 Hyperkalemia; J44.9 Chronic obstructive pulmonary disease, unspecified; F10.10 Alcohol abuse, uncomplicated; I11.0 Hypertensive heart disease with heart failure; F17.210 Nicotine dependence, cigarettes, uncomplicated; Z71.6 Tobacco abuse counseling; Z20.822 Contact with and (suspected) exposure to COVID-19; Z79.82 Long term (current) use of aspirin; Z79.84 Long term (current) use of oral hypoglycemic drugs; Z79.899 Other long term (current) drug therapy
CPT/HCPCS: 36415; 73610; 80048; 80053; 82803; 82947; 83735; 83930; 83935; 84100; 84295; 85025; 87635; 93005; 94640; 96361; 96365; 96366; 96375; 97162; 99285; J0610; J2270; J2405

== ENCOUNTER 2022-02-07 02:53 | Emergency (ER) | payer MEDICARE, MEDICAID, SELFPAY ==
[2022-02-07] VITALS (7 sets, daily range): BP systolic 134–166; BP diastolic 56–88; PULSE 78–106; RESP 17–26; TEMP 36.6–36.9; O2SAT 94–100; BMI 26.5
--- NOTE | ~2022-02-07 | XR_ITS ---
EXAMINATION: 1. CHEST X-RAY 2. RADIOGRAPHS BILATERAL HIPS (INCLUDING FRONTAL PELVIS) 3. RADIOGRAPHS LEFT KNEE CLINICAL INFORMATION: Shortness of breath. Atraumatic pain. COMPARISON: Chest x-ray and chest CT November 16, 2021, pelvis and left hip x-rays November 03, 2020 and left knee x-rays February 16, 2018 TECHNIQUE: Frontal view of the chest, frontal view of the pelvis, 2 views of each hip and 2 views of the left knee were obtained. FINDINGS: Chest: Cardiac silhouette is normal in size. Atherosclerotic disease of the aortic arch. The lungs are well aerated. There is no lobar consolidation. No pleural effusion or pneumothorax. Severe degenerative changes of the right shoulder. Bilateral hips: The pelvic ring is intact. There are severe degenerative changes of both hips including near complete loss of femoral acetabular joint space bilaterally. There are sclerotic changes of both femoral heads and acetabula 8. Large osteophytes are noted involving both hips. There is suggestion of erosive changes of both hips. Left knee: No fracture or dislocation. Small to moderate size suprapatellar joint effusion. Moderately decreased medial joint space height. Moderate to large tricompartmental marginal osteophytes. XR/XR knee LT 2V IMPRESSION: -No acute pulmonary pathology. -Severe degenerative changes of both hips without fracture or dislocation. -Moderate degenerative changes of the left knee with a [id number] sized suprapatellar joint effusion.
--- NOTE | ~2022-02-07 | XR_ITS ---
EXAMINATION: 1. CHEST X-RAY 2. RADIOGRAPHS BILATERAL HIPS (INCLUDING FRONTAL PELVIS) 3. RADIOGRAPHS LEFT KNEE CLINICAL INFORMATION: Shortness of breath. Atraumatic pain. COMPARISON: Chest x-ray and chest CT November 16, 2021, pelvis and left hip x-rays November 03, 2020 and left knee x-rays February 16, 2018 TECHNIQUE: Frontal view of the chest, frontal view of the pelvis, 2 views of each hip and 2 views of the left knee were obtained. FINDINGS: Chest: Cardiac silhouette is normal in size. Atherosclerotic disease of the aortic arch. The lungs are well aerated. There is no lobar consolidation. No pleural effusion or pneumothorax. Severe degenerative changes of the right shoulder. Bilateral hips: The pelvic ring is intact. There are severe degenerative changes of both hips including near complete loss of femoral acetabular joint space bilaterally. There are sclerotic changes of both femoral heads and acetabula 8. Large osteophytes are noted involving both hips. There is suggestion of erosive changes of both hips. Left knee: No fracture or dislocation. Small to moderate size suprapatellar joint effusion. Moderately decreased medial joint space height. Moderate to large tricompartmental marginal osteophytes. XR/XR chest 1V IMPRESSION: -No acute pulmonary pathology. -Severe degenerative changes of both hips without fracture or dislocation. -Moderate degenerative changes of the left knee with a [id number] sized suprapatellar joint effusion.
--- NOTE | ~2022-02-07 | XR_ITS ---
EXAMINATION: 1. CHEST X-RAY 2. RADIOGRAPHS BILATERAL HIPS (INCLUDING FRONTAL PELVIS) 3. RADIOGRAPHS LEFT KNEE CLINICAL INFORMATION: Shortness of breath. Atraumatic pain. COMPARISON: Chest x-ray and chest CT November 16, 2021, pelvis and left hip x-rays November 03, 2020 and left knee x-rays February 16, 2018 TECHNIQUE: Frontal view of the chest, frontal view of the pelvis, 2 views of each hip and 2 views of the left knee were obtained. FINDINGS: Chest: Cardiac silhouette is normal in size. Atherosclerotic disease of the aortic arch. The lungs are well aerated. There is no lobar consolidation. No pleural effusion or pneumothorax. Severe degenerative changes of the right shoulder. Bilateral hips: The pelvic ring is intact. There are severe degenerative changes of both hips including near complete loss of femoral acetabular joint space bilaterally. There are sclerotic changes of both femoral heads and acetabula 8. Large osteophytes are noted involving both hips. There is suggestion of erosive changes of both hips. Left knee: No fracture or dislocation. Small to moderate size suprapatellar joint effusion. Moderately decreased medial joint space height. Moderate to large tricompartmental marginal osteophytes. XR/XR hip BI w [id number] IMPRESSION: -No acute pulmonary pathology. -Severe degenerative changes of both hips without fracture or dislocation. -Moderate degenerative changes of the left knee with a [id number] sized suprapatellar joint effusion.
--- NOTE | 2022-02-07 06:25 | ECG_ITS ---
Test Reason : SOB Blood Pressure : / mmHG Vent. Rate : 075 BPM Atrial Rate : 075 BPM P-R Int : 154 ms QRS Dur : 094 ms QT Int : 384 ms P-R-T Axes : 071 001 066 degrees QTc Int : 428 ms Normal sinus rhythm Normal ECG When compared with ECG of 20-DEC-2021 02:05, No significant change was found Referred By: Elvia Us Electronically Signed By:CAMPOS KELLER MD
--- NOTE | 2022-02-07 06:33 | ED.GENADULT ---
HPI - General Adult General Chief complaint: Extremity Injury, Lower <Elvia Us MD - Last Filed: 02/07/22 06:37> Stated complaint: left leg pain <Elvia Us MD - Last Filed: 02/07/22 06:37> Time Seen by Provider: 02/07/22 06:24 <Elvia Us MD - Last Filed: 02/07/22 06:37> Source: patient <Elvia Us MD - Last Filed: 02/07/22 06:37> Mode of arrival: EMS <Elvia Us MD - Last Filed: 02/07/22 06:37> History of Present Illness HPI narrative: 66-year-old female with history of CHF, gout, diabetes, alcohol use disorder, asthma, hypertension presents via EMS for complaint of sudden onset left knee pain. Patient denies any fever, chills and then during her stay in the waiting room patient began developing an ?asthma attack?. Patient denies any drug use but does endorse that she drinks alcohol. <Elvia Us MD - Last Filed: 02/07/22 06:37> Related Data Home medications: Home Medications Medication Instructions Recorded Confirmed aspirin 81 mg tablet,delayed 81 mg PO BEDTIME 08/18/20 12/20/21 release fluticasone propionate 220 1 puff INHALATION BID 08/18/20 12/20/21 mcg/actuation HFA aerosol inhaler (Flovent HFA) montelukast 10 mg tablet 10 mg PO BEDTIME 08/18/20 12/20/21 pravastatin 20 mg tablet 20 mg PO BEDTIME 10/10/20 12/20/21 metformin 500 mg tablet 500 mg PO DAILY@08 11/04/20 12/20/21 folic acid 1 mg tablet 1 tab PO DAILY 02/04/21 12/20/21 sennosides 8.6 mg tablet (senna) 1 tab PO BID PRN 02/04/21 12/20/21 thiamine HCl (vitamin B1) 100 mg 1 tab PO DAILY 02/04/21 12/20/21 tablet citalopram 40 mg tablet 1 tab PO DAILY 05/05/21 12/20/21 quetiapine 25 mg tablet 1 tab PO BID 07/05/21 12/20/21 hydralazine 25 mg tablet 1 tab PO TID 11/24/21 12/20/21 ipratropium 0.5 mg-albuterol 3 mg 1 amp INHALATION QID PRN 11/24/21 12/20/21 (2.5 mg base)/3 mL nebulization soln albuterol sulfate 90 mcg/actuation 2 inh INHALATION Q4H PRN 12/20/21 12/20/21 aerosol inhaler (Ventolin HFA) Previous Rx's Medication Instructions Recorded furosemide 20 mg tablet (Lasix) 10 mg PO DAILY #30 tab 05/10/21 omeprazole 40 mg capsule,delayed 40 mg PO DAILY@0630 30 Days #30 cap 05/10/21 release spironolactone 25 mg tablet 25 mg PO DAILY #30 tab 11/12/21 metoprolol succinate 50 mg 25 mg PO DAILY 30 Days #30 tab 12/22/21 tablet,extended release 24 hr prednisone 50 mg tablet 50 mg PO DAILY 4 Days #4 tab 02/07/22 <Elvia Us MD - Last Filed: 02/07/22 06:37> Allergies/adverse reactions: Allergies Allergy/AdvReac Type Severity Reaction Status Date / Time advair Allergy Unknown Unknown Uncoded 11/24/21 17:31 paxil Allergy Unknown Unknown Uncoded 11/24/21 17:31 From PAXIL AdvReac Intermediate NAUSEA & Uncoded 11/24/21 17:31 VOMITING <Elvia Us MD - Last Filed: 02/07/22 06:37> Review of Systems Review of Systems: Pertinent positives and negatives as stated HPI 10 point review of systems is otherwise negative. <Elvia Us MD - Last Filed: 02/07/22 06:37> [facility] Past Medical History Source: nursing notes reviewed <Elvia Us MD - Last Filed: 02/07/22 06:37> Medical History: Medical History Acute hyponatremia Alcohol use disorder Bipolar 1 disorder Bipolar I disorder Chronic hyponatremia Congestive heart failure COPD (chronic obstructive pulmonary disease) Coronary artery disease Dementia Diabetes Hypertension Korsakoff disease Osteoarthritis Schizophrenia Sleep apnea <Elvia Us MD - Last Filed: 02/07/22 06:37> Surgical History: Surgical History Hx of appendectomy <Elvia Us MD - Last Filed: 02/07/22 06:37> Social History Social History: Social History Household Members: Spouse Housing: Apartment Do you presently have visiting nurse or other home services: Yes Unable to assess alcohol history related to: Unknown Alcohol intake: never Patient Tobacco Use Status: Current everyday Tobacco user Tobacco use type: Cigarette Cigarettes Per Day: 5 Years Smoked: 52 e-Cigarette/Vaping Use: Currently Using Second Hand Smoke Exposure: Yes Use of substances other than those prescribed or required for medical reasons: No Substance Use Type: Marijuana Advance Directives: Yes Advance Directives on File: Yes Advance Directives Date on File: 10/10/20 service: No Current occupational status: unemployed, disabled and other <Elvia Us MD - Last Filed: 02/07/22 06:37> Physical Exam ED Vital Signs: Vital Signs - 24 hr 02/07/22 03:13 02/07/22 06:25 02/07/22 07:24 Temperature 98.0 F 98 F Pulse Rate 78 78 91 Respiratory Rate 20 20 26 H Blood Pressure 134/70 134/70 165/88 H Pulse Oximetry 98 99 02/07/22 08:11 02/07/22 10:46 02/07/22 10:56 Temperature 98.4 F Pulse Rate 81 103 H 106 H Respiratory Rate 17 20 17 Blood Pressure 139/68 151/72 H Pulse Oximetry 96 94 BMI result Body Mass Index 26.5 VITAL SIGNS: Reviewed. GENERAL: Elderly, chronically ill, in moderate distress. HEAD: Normocephalic/atraumatic EYES: PERRLA, EOMI EARS: Ext canals without abnormality OROPHARYNX: no oral lesions noted, posterior pharynx clear LUNGS: Normal breath sounds. No adventitious sounds or accessory muscle use. SpO2<98> CARDIOVASCULAR: Regular rate and rhythm without noted murmurs, no JVD but minimal bilateral ankle edema ABDOMEN: Soft, non-tender, non-distended with bowel sounds. MUSCULOSKELETAL: No tenderness, deformities, but erythematous and edematous left knee noted on gross inspection. EXTREMITIES: No cyanosis, clubbing or edema, palpable and symmetrical DP/PT SKIN: Inspection of the skin reveals no rashes NEUROLOGIC: Alert and oriented x 4. Strength and sensation to light touch were grossly intact x 4. <Elvia Us MD - Last Filed: 02/07/22 06:37> Vital Signs - 24 hr 02/07/22 03:13 02/07/22 06:25 02/07/22 07:24 Temperature 98.0 F 98 F Pulse Rate 78 78 91 Respiratory Rate 20 20 26 H Blood Pressure 134/70 134/70 165/88 H Pulse Oximetry 98 99 02/07/22 08:11 02/07/22 10:46 02/07/22 10:56 Temperature 98.4 F Pulse Rate 81 103 H 106 H Respiratory Rate 17 20 17 Blood Pressure 139/68 151/72 H Pulse Oximetry 96 94 BMI result Body Mass Index 26.5 <Broderick Caldwell MD - Last Filed: 02/07/22 11:41> Course Course Course Narrative: 66-year-old female with history and clinical presentation consistent with gout flare and suspect possible CHF versus asthma exacerbation. <Elvia Us MD - Last Filed: 02/07/22 06:37> Reevaluation(s) Reevaluation #1: Patient was initially seen by Dr. Marroquin and signed out to me I assumed care for this patient at 07:00. 66 years old female past medical history significant for COPD, chronic hyponatremia, congestive heart failure, asthma, use 2 L of oxygen 19/04 at home came in with knee pain, patient with history of gout, physical exam and history is consistent with acute gout flare, while patient has been evaluated in the emergency department had some patient had shortness of breath while has been evaluated for her knee pain, patient was given continuous DuoNeb breathing treatment, patient now is feeling better, patient satting 80% without oxygen but improved with 2 L of oxygen in the emergency department for 92%. Labs were checked at her baseline (chronic hyponatremia ). Slight elevation of D-dimer likely because patient is congestive heart failure and COPD. No acute or new symptoms to predict patient may have pulmonary embolism Patient is improving with her regular medication and supplemental oxygen. Chest x-ray /BMP/ physical exam do not suggest congestive heart failure today. X-ray left knee/ hip is consistent with chronic arthritis. Patient feels her normal now, no respiratory distress, will arrange for discharge home. <Broderick Caldwell MD - Last Filed: 02/07/22 11:41> Time: 11:32 <Broderick Caldwell MD - Last Filed: 02/07/22 11:41> Medical Decision Making Lab Data Result diagrams: : 02/07/22 06:37 02/07/22 10:47 <Elvia Us MD - Last Filed: 02/07/22 06:37> Labs: Lab Results 02/07/22 02/07/22 02/07/22 Range/Units 06:36 06:36 06:37 WBC 9.7 (4.8-10.8) X10*3/uL RBC 3.62 L (4.20-5.50) X10*6/uL Hgb 10.8 L (12.0-16.0) g/dl Hct 30.4 L (37.0-47.0) % MCV 84.0 (80.0-98.0) fL MCH 29.8 (27.0-33.0) pg MCHC 35.5 H (31.0-35.0) g/dl RDW 14.0 (11.0-16.0) % Plt Count 264 D (160-400) X10*3/uL MPV 7.8 L (9.4-12.3) fL Immature Gran % (Auto) 0.6 H (0.0-0.4) % Neut % (Auto) 77.7 H (45-73) % Lymph % (Auto) 10.5 L (20-40) % [place] % (Auto) 10.4 (2-11) % Eos % (Auto) 0.5 (0-4) % Baso % (Auto) 0.3 (0-2) % Lymph # (Auto) 1.0 L (1.2-4.9) X10*3/uL [place] # (Auto) 1.0 (0.1-1.2) X10*3/uL Eos # (Auto) 0.1 (0.0-0.4) X10*3/uL Baso # (Auto) 0.0 (0.0-0.2) X10*3/uL Abs Immat Gran (auto) 0.06 H (0.00-0.03) X10*3/uL Absolute Neuts (auto) 7.5 (2.0-8.3) x10*3/uL Absolute Nucleated RBC 0.000 (0.0-0.012) X10*3/uL Nucleated RBC % (auto) 0.0 (0.0-0.2) /100WBC PT 11.1 (9.9-13.0) SEC INR 1.0 (0.9-1.1) D-Dimer High Sensitivty 316 NG/ML Sodium (135-145) mmol/L Potassium (3.3-5.1) mmol/L Chloride (96-108) mmol/L Carbon Dioxide (22-29) mmol/L Anion Gap (12-20) BUN (9-16) mg/dL Creatinine (0.5-1.4) mg/dL Estim Creat Clear Calc Estimated GFR Random Glucose (60-115) mg/dL Calcium (8.4-10.2) mg/dL Total Bilirubin (0.0-1.0) mg/dL AST (5-31) U/L ALT (0-31) U/L Alkaline Phosphatase (39-117) U/L B-Natriuretic Peptide 78 (<100) pg/mL Total Protein (6.5-8.0) g/dL Albumin (3.5-5.0) g/dL COVID-19 ([facility]) (Negative) COVID-19 Clin Com Influenza Type A ([facility]) (Negative) Influenza Type B ([facility]) (Negative) Influenza A & B Note 02/07/22 02/07/22 02/07/22 Range/Units 06:37 06:37 10:47 WBC (4.8-10.8) X10*3/uL RBC (4.20-5.50) X10*6/uL Hgb (12.0-16.0) g/dl Hct (37.0-47.0) % MCV (80.0-98.0) fL MCH (27.0-33.0) pg MCHC (31.0-35.0) g/dl RDW (11.0-16.0) % Plt Count (160-400) X10*3/uL MPV (9.4-12.3) fL Immature Gran % (Auto) (0.0-0.4) % Neut % (Auto) (45-73) % Lymph % (Auto) (20-40) % [place] % (Auto) (2-11) % Eos % (Auto) (0-4) % Baso % (Auto) (0-2) % Lymph # (Auto) (1.2-4.9) X10*3/uL [place] # (Auto) (0.1-1.2) X10*3/uL Eos # (Auto) (0.0-0.4) X10*3/uL Baso # (Auto) (0.0-0.2) X10*3/uL Abs Immat Gran (auto) (0.00-0.03) X10*3/uL Absolute Neuts (auto) (2.0-8.3) x10*3/uL Absolute Nucleated RBC (0.0-0.012) X10*3/uL Nucleated RBC % (auto) (0.0-0.2) /100WBC PT (9.9-13.0) SEC INR (0.9-1.1) D-Dimer High Sensitivty NG/ML Sodium 123 L (135-145) mmol/L Potassium 4.4 (3.3-5.1) mmol/L Chloride 89 L (96-108) mmol/L Carbon Dioxide 21 L (22-29) mmol/L Anion Gap 17 (12-20) BUN 26 H (9-16) mg/dL Creatinine 0.97 (0.5-1.4) mg/dL Estim Creat Clear Calc 51.3 Estimated GFR 57 Random Glucose 144 H (60-115) mg/dL Calcium 9.8 D (8.4-10.2) mg/dL Total Bilirubin 0.6 (0.0-1.0) mg/dL AST 21 (5-31) U/L ALT 12 (0-31) U/L Alkaline Phosphatase 125 H (39-117) U/L B-Natriuretic Peptide (<100) pg/mL Total Protein 7.8 (6.5-8.0) g/dL Albumin 3.8 (3.5-5.0) g/dL COVID-19 ([facility]) Negative (Negative) COVID-19 Clin Com See Note Influenza Type A ([facility]) Negative (Negative) Influenza Type B ([facility]) Negative (Negative) Influenza A & B Note See Note <Elvia Us MD - Last Filed: 02/07/22 06:37> Lab Results 02/07/22 02/07/22 02/07/22 Range/Units 06:36 06:36 06:37 WBC 9.7 (4.8-10.8) X10*3/uL RBC 3.62 L (4.20-5.50) X10*6/uL Hgb 10.8 L (12.0-16.0) g/dl Hct 30.4 L (37.0-47.0) % MCV 84.0 (80.0-98.0) fL MCH 29.8 (27.0-33.0) pg MCHC 35.5 H (31.0-35.0) g/dl RDW 14.0 (11.0-16.0) % Plt Count 264 D (160-400) X10*3/uL MPV 7.8 L (9.4-12.3) fL Immature Gran % (Auto) 0.6 H (0.0-0.4) % Neut % (Auto) 77.7 H (45-73) % Lymph % (Auto) 10.5 L (20-40) % [place] % (Auto) 10.4 (2-11) % Eos % (Auto) 0.5 (0-4) % Baso % (Auto) 0.3 (0-2) % Lymph # (Auto) 1.0 L (1.2-4.9) X10*3/uL [place] # (Auto) 1.0 (0.1-1.2) X10*3/uL Eos # (Auto) 0.1 (0.0-0.4) X10*3/uL Baso # (Auto) 0.0 (0.0-0.2) X10*3/uL Abs Immat Gran (auto) 0.06 H (0.00-0.03) X10*3/uL Absolute Neuts (auto) 7.5 (2.0-8.3) x10*3/uL Absolute Nucleated RBC 0.000 (0.0-0.012) X10*3/uL Nucleated RBC % (auto) 0.0 (0.0-0.2) /100WBC PT 11.1 (9.9-13.0) SEC INR 1.0 (0.9-1.1) D-Dimer High Sensitivty 316 NG/ML Sodium (135-145) mmol/L Potassium (3.3-5.1) mmol/L Chloride (96-108) mmol/L Carbon Dioxide (22-29) mmol/L Anion Gap (12-20) BUN (9-16) mg/dL Creatinine (0.5-1.4) mg/dL Estim Creat Clear Calc Estimated GFR Random Glucose (60-115) mg/dL Calcium (8.4-10.2) mg/dL Total Bilirubin (0.0-1.0) mg/dL AST (5-31) U/L ALT (0-31) U/L Alkaline Phosphatase (39-117) U/L B-Natriuretic Peptide 78 (<100) pg/mL Total Protein (6.5-8.0) g/dL Albumin (3.5-5.0) g/dL COVID-19 ([facility]) (Negative) COVID-19 Clin Com Influenza Type A ([place]) (Negative) Influenza Type B ([facility]) (Negative) Influenza A & B Note 02/07/22 02/07/22 02/07/22 Range/Units 06:37 06:37 10:47 WBC (4.8-10.8) X10*3/uL RBC (4.20-5.50) X10*6/uL Hgb (12.0-16.0) g/dl Hct (37.0-47.0) % MCV (80.0-98.0) fL MCH (27.0-33.0) pg MCHC (31.0-35.0) g/dl RDW (11.0-16.0) % Plt Count (160-400) X10*3/uL MPV (9.4-12.3) fL Immature Gran % (Auto) (0.0-0.4) % Neut % (Auto) (45-73) % Lymph % (Auto) (20-40) % [place] % (Auto) (2-11) % Eos % (Auto) (0-4) % Baso % (Auto) (0-2) % Lymph # (Auto) (1.2-4.9) X10*3/uL [place] # (Auto) (0.1-1.2) X10*3/uL Eos # (Auto) (0.0-0.4) X10*3/uL Baso # (Auto) (0.0-0.2) X10*3/uL Abs Immat Gran (auto) (0.00-0.03) X10*3/uL Absolute Neuts (auto) (2.0-8.3) x10*3/uL Absolute Nucleated RBC (0.0-0.012) X10*3/uL Nucleated RBC % (auto) (0.0-0.2) /100WBC PT (9.9-13.0) SEC INR (0.9-1.1) D-Dimer High Sensitivty NG/ML Sodium 123 L (135-145) mmol/L Potassium 4.4 (3.3-5.1) mmol/L Chloride 89 L (96-108) mmol/L Carbon Dioxide 21 L (22-29) mmol/L Anion Gap 17 (12-20) BUN 26 H (9-16) mg/dL Creatinine 0.97 (0.5-1.4) mg/dL Estim Creat Clear Calc 51.3 Estimated GFR 57 Random Glucose 144 H (60-115) mg/dL Calcium 9.8 D (8.4-10.2) mg/dL Total Bilirubin 0.6 (0.0-1.0) mg/dL AST 21 (5-31) U/L ALT 12 (0-31) U/L Alkaline Phosphatase 125 H (39-117) U/L B-Natriuretic Peptide (<100) pg/mL Total Protein 7.8 (6.5-8.0) g/dL Albumin 3.8 (3.5-5.0) g/dL COVID-19 ([facility]) Negative (Negative) COVID-19 Clin Com See Note Influenza Type A ([place]) Negative (Negative) Influenza Type B ([facility]) Negative (Negative) Influenza A & B Note See Note <Broderick Caldwell MD - Last Filed: 02/07/22 11:41> ECG Data Attestation: I personally reviewed and interpreted this ECG as follows: <Elvia Us MD - Last Filed: 02/07/22 06:37> Prior ECG tracings: available for review <Elvia Us MD - Last Filed: 02/07/22 06:37> Interpretation: NSR, HR-75, no STEMI, DE/QRS/QTC are within normal limits. <Elvia Us MD - Last Filed: 02/07/22 06:37> Discharge Plan Discharge Clinical Impression: Knee pain, left, COPD (chronic obstructive pulmonary disease) <Elvia Us MD - Last Filed: 02/07/22 06:37> Patient Disposition: Home, Self-Care <Elvia Us MD - Last Filed: 02/07/22 06:37> Instructions: Gout (ED), COPD (Chronic Obstructive Pulmonary Disease) (ED) <Elvia Us MD - Last Filed: 02/07/22 06:37> Additional Instructions: 1. Reanudar todos los medicamentos caseros seg?n lo prescrito. 2. Le mireles dado david receta para la gota 3. Dong un seguimiento con goldberg proveedor de atenci?n primaria el lunes por la ma?hever. Regrese a la sabrina de emergencias si los s?ntomas empeoran. <Elvia Us MD - Last Filed: 02/07/22 06:37> Prescriptions: New prednisone 50 mg tablet 50 mg PO DAILY 4 Days Qty: 4 0RF No Action aspirin 81 mg tablet,delayed release (DR/EC) 81 mg PO BEDTIME 0RF montelukast 10 mg tablet 10 mg PO BEDTIME 0RF Flovent HFA 220 mcg/actuation HFA aerosol inhaler 1 puff inhalation BID 0RF pravastatin 20 mg Tablet 20 mg PO BEDTIME 0RF citalopram 40 mg tablet 1 tab PO DAILY 0RF omeprazole 40 mg Capsule,Delayed Release(Dr/Ec) 40 mg PO DAILY@0630 30 Days Qty: 30 0RF furosemide [Lasix] 20 mg tablet 10 mg PO DAILY Qty: 30 0RF metformin 500 mg tablet 500 mg PO DAILY@08 0RF Rx Instructions: TAKE WITH FOOD sennosides [senna] 8.6 mg tablet 1 tab PO BID PRN (Reason: constipation) 0RF thiamine HCl (vitamin B1) 100 mg tablet 1 tab PO DAILY 0RF folic acid 1 mg tablet 1 tab PO DAILY 0RF spironolactone 25 mg tablet 25 mg PO DAILY Qty: 30 0RF Hold Instructions: hold until repeat bmp with pcp outpatiently, restart as per pcp and nephro. quetiapine 25 mg tablet 1 tab PO BID 0RF hydralazine 25 mg tablet 1 tab PO TID 0RF Hold Instructions: hold until seen by pcp , may need to start as per blood pressure. ipratropium-albuterol 0.5 mg-3 mg(2.5 mg base)/3 mL solution for nebulization 1 amp inhalation QID PRN (Reason: Wheezing) 0RF albuterol sulfate [Ventolin HFA] 90 mcg/actuation HFA aerosol inhaler 2 inh inhalation Q4H PRN (Reason: Shortness Of Breath) 0RF metoprolol succinate 50 mg Tablet Extended Release 24 Hr 25 mg PO DAILY 30 Days Qty: 30 0RF Protocol: Hold for SBP/HR < HOLD for SBP < : 90 HOLD for HR < : 60 <Elvia Us MD - Last Filed: 02/07/22 06:37> Referrals: Physician,Unknown J [Primary Care Provider] - <Elvia Us MD - Last Filed: 02/07/22 06:37>
[2022-02-07] MEDS: Albuterol Sulfate (0.083%) 2.5 MG/3 ML VIAL.NEB 10 MG INHALE ×2 (06:37→08:08)
[2022-02-07 06:44] LABS: MANUAL DIFF FLAG NO
[2022-02-07 06:45] LABS: Basophils Percent Auto 0.3 % (0-2); Eosinophils Absolute Auto 0.1 X10*3/uL (0.0-0.4); Eosinophils Percent Auto 0.5 % (0-4); Hematocrit 30.4 % (37.0-47.0); Hemoglobin 10.8 g/dl (12.0-16.0); Imm Gran Abs Auto 0.06 X10*3/uL (0.00-0.03); Imm Gran Pct Auto 0.6 % (0.0-0.4); Lymphocytes Percent Auto 10.5 % (20-40); Mean Corpuscular HGB Conc 35.5 g/dl (31.0-35.0); Mean Corpuscular Hemoglobin 29.8 pg (27.0-33.0); Mean Platelet Volume 7.8 fL (9.4-12.3); Monocytes Percent Auto 10.4 % (2-11); Neutrophils Absolute Auto 7.5 x10*3/uL (2.0-8.3); Neutrophils Percent Auto 77.7 % (45-73); Platelet Count 264 X10*3/uL (160-400); Red Blood Count 3.62 X10*6/uL (4.20-5.50); White Blood Count 9.7 X10*3/uL (4.8-10.8)
[2022-02-07 06:46] LABS: Venous Blood Gas Refer to POC result
[2022-02-07 07:02] LABS: Prothrombin Time 11.1 SEC (9.9-13.0)
[2022-02-07 07:04] LABS: B Type Natriuretic Peptide 78 pg/mL (<100); D Dimer High Sensitivity 316 NG/ML
[2022-02-07 07:05] LABS: COVID-19 Test Negative (Negative); IDNOW Serial# 16C4AD1C; Influenza A Negative (Negative); Influenza B2 Negative (Negative)
[2022-02-07] MEDS: methylPREDNISolone Sod Succ 125 MG/2 ML VIAL IVPUSH (07:17)
[2022-02-07] MEDS: Ketorolac Tromethamine 30 MG/ML VIAL 15 MG IVPUSH (07:45)
[2022-02-07 11:22] LABS: Alanine Aminotransferase 12 U/L (0-31); Albumin Level 3.8 g/dL (3.5-5.0); Alkaline Phosphatase 125 U/L (39-117); Anion Gap 17 (12-20); Aspartate Amino Transferase 21 U/L (5-31); Bilirubin Total 0.6 mg/dL (0.0-1.0); Blood Urea Nitrogen 26 mg/dL (9-16); Calcium 9.8 mg/dL (8.4-10.2); Carbon Dioxide 21 mmol/L (22-29); Chloride 89 mmol/L (96-108); Creatinine Clr Calc Pharmacy 51.3; Estimated Glomerular Filt Rate 57; Glucose Random 144 mg/dL (60-115); Potassium 4.4 mmol/L (3.3-5.1); Sodium 123 mmol/L (135-145); Total Protein 7.8 g/dL (6.5-8.0)
[2022-02-07 12:17] LABS: Color Urine STRAW; Glucose Urine UA NEG (NEG); Leukocyte Esterase Urine NEG (NEG); Nitrite Urine NEG (NEG); UACC Culture Trigger NO; Urine Blood 3+ (NEG); Urine Ketones 5 MG/DL (NEG); Urine Protein NEG (NEG-TRACE)
[2022-02-07 12:20] LABS: Appearance Urine HAZY
[2022-02-07 12:23] LABS: Squamous Epithelial Cell Urine 1+ /LPF; WBC Urine 0 /HPF (0-4)
[2022-02-09 06:45] LABS: VBG Base Excess -3.1 mmol/L; VBG HCO3 21 mmol/L (22-26); VBG pCO2 37 mmHg; VBG pH 7.37 (7.32-7.43); VBG pO2 41 mmHg
== END 2022-02-07 15:32 | disposition home or self-care (01) ==
PROVIDERS: Student in an Organized Health Care Education/Training Program; Emergency Provider Emergency Medicine
DX: M25.562 Pain in left knee (principal); J44.9 Chronic obstructive pulmonary disease, unspecified; R06.02 Shortness of breath; I11.0 Hypertensive heart disease with heart failure; I50.9 Heart failure, unspecified; E11.9 Type 2 diabetes mellitus without complications; E87.1 Hypo-osmolality and hyponatremia; J45.909 Unspecified asthma, uncomplicated; Z99.81 Dependence on supplemental oxygen; Z20.822 Contact with and (suspected) exposure to COVID-19
CPT/HCPCS: 36415; 71045; 73521; 73560; 80053; 81001; 82803; 83880; 85025; 85379; 85610; 87502; 87635; 93005; 94640; 94644; 94645; 96361; 96374; 99285; J1885; J2930

== ENCOUNTER 2022-02-08 04:27 | Emergency (ER) | payer MEDICARE, MEDICAID, SELFPAY ==
[2022-02-08] VITALS (9 sets, daily range): BP systolic 119–146; BP diastolic 50–88; PULSE 71–92; RESP 14–20; TEMP 36.3–37.1; O2SAT 95–100; BMI 26.5
--- NOTE | ~2022-02-08 | US_ITS ---
EXAMINATION: US VENOUS ULTRASOUND WITH DOPPLER LOWER EXTREMITY, LEFT CLINICAL INFORMATION: Swelling COMPARISON: Previous exam October 2021 TECHNIQUE: Ultrasound of the deep veins is performed from the hip to the calf with compression sonography and color and pulse Doppler assessment. Spectral analysis with color-flow imaging is performed. FINDINGS: There is normal venous compression and respiratory variation and augmented flow. The visualized common femoral vein, superficial femoral vein, profunda femoral vein, popliteal vein, and the trifurcation region shows no evidence of deep venous thrombosis. There is no significant popliteal fossa cyst. US/US venous duplex LE LT IMPRESSION: No DVT demonstrated in the left lower extremity.
[2022-02-08] MEDS: Ibuprofen 600 MG TABLET PO (04:40)
--- NOTE | 2022-02-08 07:15 | PC.NURSE ---
c/o l leg pain and cough, spo2 97-98, sitting in wheel chair in [facility]
--- NOTE | 2022-02-08 07:40 | ED.LOWEXIN ---
HPI - Extremity Injury (Lower) General Chief Complaint: Extremity Injury, Lower Stated Complaint: left leg pain Time Seen by Provider: 02/08/22 06:21 Source: patient, EMS and educational sign language interpreter Mode of arrival: EMS Limitations: no limitations History of Present Illness HPI Narrative: 66-year-old female came in for evaluation left knee/lower extremities pain. Patient was seen in the emergency department yesterday for left leg pain because patient's known history of congestive heart failure, COPD using 2 L of supplemental oxygen, DANO, CAD, dm, HTN, ETOH abuse. Patient was seen yesterday for left leg pain diagnosed with gout patient was sent home on short course of prednisone. Related Data Home Medications Medication Instructions Recorded Confirmed aspirin 81 mg tablet,delayed 81 mg PO BEDTIME 08/18/20 12/20/21 release fluticasone propionate 220 1 puff INHALATION BID 08/18/20 12/20/21 mcg/actuation HFA aerosol inhaler (Flovent HFA) montelukast 10 mg tablet 10 mg PO BEDTIME 08/18/20 12/20/21 pravastatin 20 mg tablet 20 mg PO BEDTIME 10/10/20 12/20/21 metformin 500 mg tablet 500 mg PO DAILY@08 11/04/20 12/20/21 folic acid 1 mg tablet 1 tab PO DAILY 02/04/21 12/20/21 sennosides 8.6 mg tablet (senna) 1 tab PO BID PRN 02/04/21 12/20/21 thiamine HCl (vitamin B1) 100 mg 1 tab PO DAILY 02/04/21 12/20/21 tablet citalopram 40 mg tablet 1 tab PO DAILY 05/05/21 12/20/21 quetiapine 25 mg tablet 1 tab PO BID 07/05/21 12/20/21 hydralazine 25 mg tablet 1 tab PO TID 11/24/21 12/20/21 ipratropium 0.5 mg-albuterol 3 mg 1 amp INHALATION QID PRN 11/24/21 12/20/21 (2.5 mg base)/3 mL nebulization soln albuterol sulfate 90 mcg/actuation 2 inh INHALATION Q4H PRN 12/20/21 12/20/21 aerosol inhaler (Ventolin HFA) Previous Rx's Medication Instructions Recorded furosemide 20 mg tablet (Lasix) 10 mg PO DAILY #30 tab 05/10/21 omeprazole 40 mg capsule,delayed 40 mg PO DAILY@0630 30 Days #30 cap 05/10/21 release spironolactone 25 mg tablet 25 mg PO DAILY #30 tab 11/12/21 metoprolol succinate 50 mg 25 mg PO DAILY 30 Days #30 tab 12/22/21 tablet,extended release 24 hr prednisone 50 mg tablet 50 mg PO DAILY 4 Days #4 tab 02/07/22 Allergies Allergy/AdvReac Type Severity Reaction Status Date / Time advair Allergy Unknown Unknown Uncoded 11/24/21 17:31 paxil Allergy Unknown Unknown Uncoded 11/24/21 17:31 From PAXIL AdvReac Intermediate NAUSEA & Uncoded 11/24/21 17:31 VOMITING Review of Systems Review of Systems: All other systems are reviewed and are negative Constitutional: Reports as per HPI and Reports no additional constitutional complaints Eyes: Reports as per HPI and Reports no additional eye complaints Reports system reviewed and no additional complaints, except as documented Cardiovascular: Reports as per HPI and Reports no additional cardiovascular complaints Respiratory: Reports as per HPI and Reports no additional respiratory complaints Gastrointestinal: Reports as per HPI and Reports no additional gastrointestinal complaints Genitourinary: Reports no additional female genitourinary complaints Musculoskeletal: Reports no additional musculoskeletal complaints Skin/Breast: Reports system reviewed and no additional complaints, except as docu Psychiatric: Reports no additional psychiatric complaints Endocrine: Reports no additional endocrine complaints Hematologic/Lymphatic: Reports no additional hematologic/lymphatic complaints Allergic/Immunologic: Reports no additional allergic/immunologic complaints Reports system reviewed and no additional complaints, except as documented and Reports Abnormal speech present [facility] Past Medical History Medical History Acute hyponatremia Alcohol use disorder Bipolar 1 disorder Bipolar I disorder Chronic hyponatremia Congestive heart failure COPD (chronic obstructive pulmonary disease) Coronary artery disease Dementia Diabetes Hypertension Korsakoff disease Osteoarthritis Schizophrenia Sleep apnea Surgical History Hx of appendectomy Social History Social History Household Members: Spouse Housing: Apartment Do you presently have visiting nurse or other home services: Yes Unable to assess alcohol history related to: Unknown Alcohol intake: never Patient Tobacco Use Status: Current everyday Tobacco user Tobacco use type: Cigarette Cigarettes Per Day: 5 Years Smoked: 52 e-Cigarette/Vaping Use: Currently Using Second Hand Smoke Exposure: Yes Substance Use Type: Marijuana Advance Directives: Yes Advance Directives on File: Yes Advance Directives Date on File: 10/10/20 service: No Current occupational status: unemployed, disabled and other Physical Exam Vital Signs: Vital Signs: Last Vital Signs Temp 97.3 F 02/08/22 08:21 Pulse 77 02/08/22 09:26 Resp 16 02/08/22 09:26 BP 146/71 H 02/08/22 08:21 Pulse Ox 95 02/08/22 08:21 BMI result Body Mass Index 26.5 Vital signs have been reviewed as appeared to be correct. Blood pressure normal. Heart rate normal. Respiration rate normal. Temperature normal. Oxygen saturation normal. Appearance: Alert. Oriented X3. No acute distress. Head: Normal external exam. Normocephalic. Atraumatic. No Jones signs noted. No raccoon eyes noted Eyes: PERRLA. EOMI. Conjunctiva and sclera normal. Eyelids normal. ENT: TM's Normal. Pharynx normal. Uvula midline. Moist mucous membranes. No trismus noted. No drooling noted. No muffled voice noted. Neck: Normal inspection. Neck supple. FROM. No adenopathy. Thyroid Normal. No meningeal signs. No neck mass noted. CVS: Normal heart rate and rhythm. Heart sound normal. No murmurs noted. Pulses normal throughout. Respiratory: No respiratory distress. Painless inspiration. Breath sounds normal. Mild expiratory wheezing with prolonged expiration, Chest nontender. No accessory muscle usage noted or decreased air movement noted. Abdomen: Soft and nontender. Bowel sounds normal in all 4 quadrants. No distention noted. No organomegaly noted. No visible injury noted. Back: No CVA tenderness. Full range of motion noted. Skin: Skin warm and dry. Normal skin color. Normal skin turgor. No rashes/lesions/lacerations noted. Extremities: No lower extremity edema. Extremities exhibit normal range of motion. Extremities nontender. Neuro: Oriented X 3. Cranial nerve exam: II-XII are grossly intact No motor deficit. No sensory deficit. Reflexes normal. Course Course Course Narrative: Assessment and Plan. 66-year-old female returned to the emergency department for evaluation of left lower extremity pain so to be gout of the left knee, patient cannot function at home was great risk of, patient also have COPD with 2 L of supplemental oxygen dependent 19/04. Patient needed bronchodilator treatment in the emergency department. patient will remain in the emergency department for PT evaluation looking for rehab placement. Chronic hyponatremia that need no emergent intervention at this point. Position of the patient starting at 11:45. Reevaluation(s) Reevaluation #1: Physician observation started at 11:45. Patient placed in physician observation because the patient needed more time for medication to work and to see PT/case management for evaluation and placement patient's vital sign were stable, patient is alert and oriented , neuro exam unchanged, unremarkable rest of physical exam. MDM - Extremity Injury (Lower) Lab Data Attestation: I reviewed the patient's lab results. Result diagrams: 02/08/22 08:42 02/08/22 08:42 Labs: Lab Results 02/08/22 02/08/22 02/08/22 Range/Units 08:42 08:42 08:42 WBC 10.1 (4.8-10.8) X10*3/uL RBC 3.31 L (4.20-5.50) X10*6/uL Hgb 9.9 L (12.0-16.0) g/dl Hct 27.8 L (37.0-47.0) % MCV 84.0 (80.0-98.0) fL MCH 29.9 (27.0-33.0) pg MCHC 35.6 H (31.0-35.0) g/dl RDW 14.0 (11.0-16.0) % Plt Count 266 (160-400) X10*3/uL MPV 8.2 L (9.4-12.3) fL Immature Gran % (Auto) 0.7 H (0.0-0.4) % Neut % (Auto) 76.4 H (45-73) % Lymph % (Auto) 10.9 L (20-40) % [place] % (Auto) 11.9 H (2-11) % Eos % (Auto) 0.0 (0-4) % Baso % (Auto) 0.1 (0-2) % Lymph # (Auto) 1.1 L (1.2-4.9) X10*3/uL [place] # (Auto) 1.2 (0.1-1.2) X10*3/uL Eos # (Auto) 0.0 (0.0-0.4) X10*3/uL Baso # (Auto) 0.0 (0.0-0.2) X10*3/uL Abs Immat Gran (auto) 0.07 H (0.00-0.03) X10*3/uL Absolute Neuts (auto) 7.7 (2.0-8.3) x10*3/uL Absolute Nucleated RBC 0.000 (0.0-0.012) X10*3/uL Nucleated RBC % (auto) 0.0 (0.0-0.2) /100WBC Sodium 124 L (135-145) mmol/L Potassium 5.2 H (3.3-5.1) mmol/L Chloride 90 L (96-108) mmol/L Carbon Dioxide 25 (22-29) mmol/L Anion Gap 14 (12-20) BUN 34 H (9-16) mg/dL Creatinine 1.04 (0.5-1.4) mg/dL Estim Creat Clear Calc 47.9 Estimated GFR 53 Random Glucose 107 (60-115) mg/dL Lactic Acid 0.6 (0.5-2.0) mmol/L Calcium 9.7 (8.4-10.2) mg/dL Influenza Type A (PCR) (Negative) Influenza Type B (PCR) (Negative) RSV RNA Qual (PCR) (Negative) SARS-CoV-2 RNA (RT-PCR) (Negative) 02/08/22 Range/Units 10:17 WBC (4.8-10.8) X10*3/uL RBC (4.20-5.50) X10*6/uL Hgb (12.0-16.0) g/dl Hct (37.0-47.0) % MCV (80.0-98.0) fL MCH (27.0-33.0) pg MCHC (31.0-35.0) g/dl RDW (11.0-16.0) % Plt Count (160-400) X10*3/uL MPV (9.4-12.3) fL Immature Gran % (Auto) (0.0-0.4) % Neut % (Auto) (45-73) % Lymph % (Auto) (20-40) % [place] % (Auto) (2-11) % Eos % (Auto) (0-4) % Baso % (Auto) (0-2) % Lymph # (Auto) (1.2-4.9) X10*3/uL [place] # (Auto) (0.1-1.2) X10*3/uL Eos # (Auto) (0.0-0.4) X10*3/uL Baso # (Auto) (0.0-0.2) X10*3/uL Abs Immat Gran (auto) (0.00-0.03) X10*3/uL Absolute Neuts (auto) (2.0-8.3) x10*3/uL Absolute Nucleated RBC (0.0-0.012) X10*3/uL Nucleated RBC % (auto) (0.0-0.2) /100WBC Sodium (135-145) mmol/L Potassium (3.3-5.1) mmol/L Chloride (96-108) mmol/L Carbon Dioxide (22-29) mmol/L Anion Gap (12-20) BUN (9-16) mg/dL Creatinine (0.5-1.4) mg/dL Estim Creat Clear Calc Estimated GFR Random Glucose (60-115) mg/dL Lactic Acid (0.5-2.0) mmol/L Calcium (8.4-10.2) mg/dL Influenza Type A (PCR) NEGATIVE (Negative) Influenza Type B (PCR) NEGATIVE (Negative) RSV RNA Qual (PCR) NEGATIVE (Negative) SARS-CoV-2 RNA (RT-PCR) NEGATIVE (Negative) Imaging Data Left lower extremities venous Doppler: Attestation: I personally reviewed and interpreted this imaging study as follows: Radiologist's impression: No DVT. Discharge Plan Discharge Clinical Impression: Left leg pain, COPD (chronic obstructive pulmonary disease), Chronic hyponatremia Prescriptions: No Action aspirin 81 mg tablet,delayed release (DR/EC) 81 mg PO BEDTIME 0RF montelukast 10 mg tablet 10 mg PO BEDTIME 0RF Flovent HFA 220 mcg/actuation HFA aerosol inhaler 1 puff inhalation BID 0RF pravastatin 20 mg Tablet 20 mg PO BEDTIME 0RF citalopram 40 mg tablet 1 tab PO DAILY 0RF omeprazole 40 mg Capsule,Delayed Release(Dr/Ec) 40 mg PO DAILY@0630 30 Days Qty: 30 0RF furosemide [Lasix] 20 mg tablet 10 mg PO DAILY Qty: 30 0RF metformin 500 mg tablet 500 mg PO DAILY@08 0RF Rx Instructions: TAKE WITH FOOD sennosides [senna] 8.6 mg tablet 1 tab PO BID PRN (Reason: constipation) 0RF thiamine HCl (vitamin B1) 100 mg tablet 1 tab PO DAILY 0RF folic acid 1 mg tablet 1 tab PO DAILY 0RF spironolactone 25 mg tablet 25 mg PO DAILY Qty: 30 0RF Hold Instructions: hold until repeat bmp with pcp outpatiently, restart as per pcp and nephro. quetiapine 25 mg tablet 1 tab PO BID 0RF hydralazine 25 mg tablet 1 tab PO TID 0RF Hold Instructions: hold until seen by pcp , may need to start as per blood pressure. ipratropium-albuterol 0.5 mg-3 mg(2.5 mg base)/3 mL solution for nebulization 1 amp inhalation QID PRN (Reason: Wheezing) 0RF albuterol sulfate [Ventolin HFA] 90 mcg/actuation HFA aerosol inhaler 2 inh inhalation Q4H PRN (Reason: Shortness Of Breath) 0RF metoprolol succinate 50 mg Tablet Extended Release 24 Hr 25 mg PO DAILY 30 Days Qty: 30 0RF Protocol: Hold for SBP/HR < HOLD for SBP < : 90 HOLD for HR < : 60 prednisone 50 mg tablet 50 mg PO DAILY 4 Days Qty: 4 0RF
[2022-02-08 08:47] LABS: MANUAL DIFF FLAG NO
[2022-02-08 08:48] LABS: Basophils Percent Auto 0.1 % (0-2); Hematocrit 27.8 % (37.0-47.0); Hemoglobin 9.9 g/dl (12.0-16.0); Imm Gran Abs Auto 0.07 X10*3/uL (0.00-0.03); Imm Gran Pct Auto 0.7 % (0.0-0.4); Lymphocytes Absolute Auto 1.1 X10*3/uL (1.2-4.9); Lymphocytes Percent Auto 10.9 % (20-40); Mean Corpuscular HGB Conc 35.6 g/dl (31.0-35.0); Mean Corpuscular Hemoglobin 29.9 pg (27.0-33.0); Mean Platelet Volume 8.2 fL (9.4-12.3); Monocytes Absolute Auto 1.2 X10*3/uL (0.1-1.2); Monocytes Percent Auto 11.9 % (2-11); Neutrophils Absolute Auto 7.7 x10*3/uL (2.0-8.3); Neutrophils Percent Auto 76.4 % (45-73); Platelet Count 266 X10*3/uL (160-400); Red Blood Count 3.31 X10*6/uL (4.20-5.50); White Blood Count 10.1 X10*3/uL (4.8-10.8)
[2022-02-08] MEDS: oxyCODONE HCl Immed Release 5 MG TABLET PO (08:57)
[2022-02-08] MEDS: predniSONE 20 MG TABLET 40 MG PO (08:58)
[2022-02-08 09:07] LABS: Lactic Acid 0.6 mmol/L (0.5-2.0)
[2022-02-08 09:19] LABS: Anion Gap 14 (12-20); Blood Urea Nitrogen 34 mg/dL (9-16); Calcium 9.7 mg/dL (8.4-10.2); Carbon Dioxide 25 mmol/L (22-29); Chloride 90 mmol/L (96-108); Creatinine Clr Calc Pharmacy 47.9; Estimated Glomerular Filt Rate 53; Glucose Random 107 mg/dL (60-115); Potassium 5.2 mmol/L (3.3-5.1); Sodium 124 mmol/L (135-145)
[2022-02-08] MEDS: Albuterol/Iprat 2.5/0.5MG 3 ML AMPUL.NEB INHALE (09:24)
[2022-02-08] MEDS: Albuterol Sulfate (0.083%) 2.5 MG/3 ML VIAL.NEB 5 MG INHALE (09:24)
--- NOTE | 2022-02-08 10:23 | MHC.CM.ED ---
Received case management consult from Dr Caldwell. Patient came to the ER due to left leg pain. Work up is pending. Physical therapy eval is ordered but won't be available until 02/09. Patient is well known to case management. Patient has an invoked HCP due to advanced dementia. Patient lives with her HCP/sig other Juanjo. Patient has been to [facility] in the past. Patient frequently refuses short term rehab. HCP will typically be agreeable to STR and then change his mind when placement becomes difficult. Patient is active with a VNA. Trying to figure out if she's active with [facility] or [facility]. Referrals have been made to both. Patient received Moderna vaccines on 02/03/21 and 09/30/21. Referral broadcasted in [employer]. Continue to monitor for d/c needs.
[2022-02-08 11:08] LABS: Influenza A PCR NEGATIVE (Negative); Influenza B PCR NEGATIVE (Negative); Resp Syncy Virus RNA Qual PCR NEGATIVE (Negative); SARS COV2 PCR INHOUSE NEGATIVE (Negative)
[2022-02-08] MEDS: Albuterol Sulfate 90 MCG 8 GM INHALER 2 PUFF INHALE (22:33)
[2022-02-09] VITALS (9 sets, daily range): BP systolic 112–125; BP diastolic 52–68; PULSE 81–105; RESP 18–22; TEMP 36.4–36.9; O2SAT 92–100
--- NOTE | 2022-02-09 00:09 | PC.NURSE ---
pt coughing and wheezing, aware, resp called for duo neb
[2022-02-09] MEDS: Albuterol/Iprat 2.5/0.5MG 3 ML AMPUL.NEB INHALE (00:22)
[2022-02-09] MEDS: oxyCODONE HCl Immed Release 5 MG TABLET PO (03:46)
[2022-02-09] MEDS: diphenhydrAMINE HCL 25 MG TABLET PO (03:46)
--- NOTE | 2022-02-09 09:11 | MHC.CM.ED ---
Patient remains in ER. Per physical therapy, patient can return home with resumption of services. Patient is active with daily nursing visits from [facility]. They are aware patient will be dishcarged home today. Patient is still active with [facility]. Emily made aware patient will be discharged home today via telephone at [phone]. Juanjo made aware via telephone that patient will be discharged home today at [phone]. Juanjo is currently at a doctor's appointment. S transportation will be booked for 1pm. David VARGAS aware. Continue to monitor for d/c needs.
== END 2022-02-09 11:30 | disposition home or self-care (01) ==
PROVIDERS: Emergency Provider Emergency Medicine; PCP Internal Medicine Geriatric Medicine
DX: M79.605 Pain in left leg (principal); E87.1 Hypo-osmolality and hyponatremia; J44.9 Chronic obstructive pulmonary disease, unspecified; I11.0 Hypertensive heart disease with heart failure; I50.9 Heart failure, unspecified; E11.9 Type 2 diabetes mellitus without complications; I25.10 Atherosclerotic heart disease of native coronary artery without angina pectoris; F17.210 Nicotine dependence, cigarettes, uncomplicated; Z99.81 Dependence on supplemental oxygen; Z20.822 Contact with and (suspected) exposure to COVID-19
CPT/HCPCS: 0241U; 36415; 80048; 83605; 85025; 87040; 93971; 94640; 94645; 97161; 99284; 99285; Q0163

== ENCOUNTER 2022-02-12 21:57 | Emergency (ER) | payer MEDICARE, MEDICAID, SELFPAY ==
--- NOTE | ~2022-02-12 | XR_ITS ---
EXAMINATION: XR KNEE, LEFT CLINICAL INFORMATION: Pain COMPARISON: 02/07/2022 TECHNIQUE: Four views of the left knee. FINDINGS: No acute fracture or subluxation. Severe medial compartment joint space narrowing. Prominent tricompartmental marginal osteophytes. No significant joint effusion. The soft tissues are unremarkable. XR/XR knee LT 3V IMPRESSION: No acute abnormality. Severe tricompartmental degenerative changes.
[2022-02-12 21:59] VITALS: BP 120/60; BP 133/54; PULSE 59; PULSE 73; RESP 18; TEMP 36.6; O2SAT 100; O2SAT 98; BMI 39.0
--- NOTE | 2022-02-12 21:59 | ECG_ITS ---
Test Reason : SYNCOPY Blood Pressure : / mmHG Vent. Rate : 073 BPM Atrial Rate : 073 BPM P-R Int : 168 ms QRS Dur : 094 ms QT Int : 390 ms P-R-T Axes : 059 -13 035 degrees QTc Int : 429 ms Normal sinus rhythm with sinus arrhythmia Normal ECG When compared with ECG of 07-FEB-2022 06:27, No significant change was found Referred By: Generic ED Physician Electronically Signed By:LNYDA GLEZ
[2022-02-12 22:10] LABS: Glucose, Whole Blood 138 mg/dL (60-115)
[2022-02-12 22:38] LABS: Hematocrit 27.1 % (37.0-47.0); Mean Corpuscular HGB Conc 33.2 g/dl (31.0-35.0); Mean Corpuscular Hemoglobin 28.9 pg (27.0-33.0); Mean Corpuscular Volume 87.1 fL (80.0-98.0); Mean Platelet Volume 8.2 fL (9.4-12.3); Platelet Count 328 X10*3/uL (160-400); Red Blood Count 3.11 X10*6/uL (4.20-5.50); Red Cell Distribution Width 14.3 % (11.0-16.0); White Blood Count 8.2 X10*3/uL (4.8-10.8)
--- NOTE | 2022-02-12 22:40 | ED_ITS ---
HPI - General Adult General Chief complaint: Syncope Stated complaint: syncopal episode Time Seen by Provider: 02/12/22 22:27 Source: patient and EMS Mode of arrival: EMS Limitations: altered mental status History of Present Illness HPI narrative: Patient comes to emergency room via EMS. Patient and family have different stories. Patient states that she asked her to call EMS because she was having left-sided knee pain. Patient states that the pain got worse, could not get up, therefore she asked her to call EMS. EMS reports that the family called 911 because patient was walking in the living room, had a near syncopal episode, patient's was able to lower her down to the floor. Rene horan did not hit her head or lose consciousness. Of note, patient has history of dementia. Related Data Home Medications Medication Instructions Recorded Confirmed aspirin 81 mg tablet,delayed 81 mg PO BEDTIME 08/18/20 02/09/22 release fluticasone propionate 220 1 puff INHALATION BID 08/18/20 02/09/22 mcg/actuation HFA aerosol inhaler (Flovent HFA) montelukast 10 mg tablet 10 mg PO BEDTIME 08/18/20 02/09/22 pravastatin 20 mg tablet 20 mg PO BEDTIME 10/10/20 02/09/22 metformin 500 mg tablet 500 mg PO DAILY@08 11/04/20 02/09/22 folic acid 1 mg tablet 1 tab PO DAILY 02/04/21 02/09/22 sennosides 8.6 mg tablet (senna) 1 tab PO BID PRN 02/04/21 02/09/22 thiamine HCl (vitamin B1) 100 mg 1 tab PO DAILY 02/04/21 02/09/22 tablet quetiapine 25 mg tablet 1 tab PO BID 07/05/21 02/09/22 hydralazine 25 mg tablet 1 tab PO TID 11/24/21 02/09/22 ipratropium 0.5 mg-albuterol 3 mg 1 amp INHALATION QID PRN 11/24/21 02/09/22 (2.5 mg base)/3 mL nebulization soln albuterol sulfate 90 mcg/actuation 2 inh INHALATION Q4H PRN 12/20/21 02/09/22 aerosol inhaler (Ventolin HFA) Previous Rx's Medication Instructions Recorded furosemide 20 mg tablet (Lasix) 10 mg PO DAILY #30 tab 05/10/21 omeprazole 40 mg capsule,delayed 40 mg PO DAILY@0630 30 Days #30 cap 05/10/21 release spironolactone 25 mg tablet 25 mg PO DAILY #30 tab 11/12/21 metoprolol succinate 50 mg 25 mg PO DAILY 30 Days #30 tab 12/22/21 tablet,extended release 24 hr oseltamivir 75 mg capsule (Tamiflu) 75 mg PO BID 5 Days #10 cap 02/13/22 Allergies Allergy/AdvReac Type Severity Reaction Status Date / Time advair Allergy Unknown Unknown Uncoded 11/24/21 17:31 paxil Allergy Unknown Unknown Uncoded 11/24/21 17:31 From PAXIL AdvReac Intermediate NAUSEA & Uncoded 11/24/21 17:31 VOMITING Review of Systems Review of Systems: Constitutional : No Weight loss, No Fever, No Chills, No Night Sweats, No Fatigue, No Malaise ENT/Mouth : No Hearing loss, No Ear Pain, No Nasal Congestion, No Sinus Pain, No Hoarseness, No sore throat, No Rhinorrhea, No Swallowing Difficulty Eyes: No Eye Pain, No Swelling, No Redness, No Foreign Body, No Discharge, No Vi bryn Changes Cardiovascular : No Chest Pain, No SOB, No Dyspnea on Exertion, No Orthopnea, No Edema, No Palpitations Respiratory : No Cough, No Sputum, No Wheezing, No Smoke Exposure, No Dyspnea Gastrointestinal : No Nausea, No Vomiting, No Diarrhea, No Constipation, No abdominal Pain, No Hematochezia, No Melena Genitourinary : no irregular bleeding, No Dysuria, No Urinary Frequency, No Hematuria, No Urinary Incontinence, No Urgency, No Flank Pain, No Urinary Flow Changes, No Hesitancy Musculoskeletal : Complaining of left knee pain, No Myalgias, No Joint Swelling Skin : No Skin Lesions, No rash Neuro : No Weakness, No Numbness, No Paresthesias, No Loss of Consciousness, family states patient had a near syncopal episode, patient denies headache Psych : No Anxiety/Panic, No Depression, No SI/HI/AH/VH, No Social Issues, Heme/Lymph: No Bruising, No Bleeding,No Lymphadenopathy Endocrine : No Polyuria, No Polydipsia, No Temperature Intolerance PMFSH Past Medical History Medical History Acute hyponatremia Alcohol use disorder Bipolar 1 disorder Bipolar I disorder Chronic hyponatremia Congestive heart failure COPD (chronic obstructive pulmonary disease) Coronary artery disease Dementia Diabetes Hypertension Korsakoff disease Osteoarthritis Schizophrenia Sleep apnea Surgical History Hx of appendectomy Social History Social History Household Members: Spouse Housing: Apartment Do you presently have visiting nurse or other home services: Yes Unable to assess alcohol history related to: Unknown Alcohol intake: never Patient Tobacco Use Status: Current everyday Tobacco user Tobacco use type: Cigarette Cigarettes Per Day: 5 Years Smoked: 52 e-Cigarette/Vaping Use: Currently Using Second Hand Smoke Exposure: Yes Substance Use Type: Marijuana Advance Directives: Yes Advance Directives on File: Yes Advance Directives Date on File: 10/10/20 service: No Current occupational status: unemployed, disabled and other Physical Exam ED Vital Signs: Vital Signs - 24 hr 02/12/22 21:59 02/12/22 22:43 02/13/22 00:38 Temperature 97.9 F 98.6 F 98.7 F Pulse Rate 73 80 75 Respiratory Rate 18 22 H 18 Blood Pressure 133/54 L 141/57 H 115/55 L Pulse Oximetry 100 100 98 BMI result Body Mass Index 39.0 Const Other: Appearance: Alert. Oriented X3. No acute distress. Eyes: Pupils equal, round and reactive to light. ENT: Pharynx normal. Neck: Normal inspection. Neck supple. No lymph nodes noted. No crepitus CVS: Normal heart rate and rhythm. Pulses normal. Normal S1 and S2 Respiratory: No respiratory distress. Breath sounds normal. No Wheezing. No rales Abdomen: Soft and nontender. No rigidity. No distention. Skin: Skin warm and dry. Normal skin color. Normal skin turgor. Extremities: No lower extremity edema. Patient complaining of left pain with any movement. The knee itself is not erythematous, no effusion, not warm. No significant pain to palpation but hurts flexing and extending the knee. Neuro: Oriented X 3. No motor deficit. No sensory deficit. Moving all extremities. No slurred speech. CN 2 through 12 grossly intact Psych: calm, cooperative, normal affect Course Course Course Narrative: Patient tested positive for COVID-19. UA negative, troponin negative, EKG within normal limits. Patient was given the 1st dose of Tamiflu. As we were trying to obtain orthostatic vitals, patient refused to participate due to knee pain. Patient will be case management and physical therapy consult in the morning. Knee x-rays negative. Physician observation started at 01:30 Sign-out given to Dr. Caldwell Medical Decision Making Lab Data Result diagrams: 02/12/22 22:18 02/12/22 22:18 Labs: Lab Results 02/12/22 02/12/22 02/12/22 Range/Units 22:07 22:18 22:18 WBC 8.2 (4.8-10.8) X10*3/uL RBC 3.11 L (4.20-5.50) X10*6/uL Hgb 9.0 L (12.0-16.0) g/dl Hct 27.1 L (37.0-47.0) % MCV 87.1 (80.0-98.0) fL MCH 28.9 (27.0-33.0) pg MCHC 33.2 (31.0-35.0) g/dl RDW 14.3 (11.0-16.0) % Plt Count 328 (160-400) X10*3/uL MPV 8.2 L (9.4-12.3) fL Absolute Nucleated RBC 0.000 (0.0-0.012) X10*3/uL Nucleated RBC % (auto) 0.0 (0.0-0.2) /100WBC Sodium 125 L (135-145) mmol/L Potassium 4.8 (3.3-5.1) mmol/L Chloride 98 (96-108) mmol/L Carbon Dioxide 20 L (22-29) mmol/L Anion Gap 12 (12-20) BUN 37 H (9-16) mg/dL Creatinine 1.13 (0.5-1.4) mg/dL Estim Creat Clear Calc 47.8 Estimated GFR 48 POC Glucose 138 H (60-115) mg/dL Random Glucose 138 H (60-115) mg/dL Calcium 8.5 D (8.4-10.2) mg/dL Total Bilirubin 0.2 (0.0-1.0) mg/dL AST 14 (5-31) U/L ALT 9 (0-31) U/L Alkaline Phosphatase 103 (39-117) U/L Troponin I High Sens (<3.5-17.0) ng/L Total Protein 6.1 L D (6.5-8.0) g/dL Albumin 3.0 L D (3.5-5.0) g/dL Urine Color Urine Appearance Urine pH (5.0-8.0) Ur Specific [place] (1.005-1.025) Urine Protein (NEG-TRACE) MG/DL Urine Glucose (UA) (NEG) MG/DL Urine Ketones (NEG) MG/DL Urine Blood (NEG) Urine Nitrite (NEG) Ur Leukocyte Esterase (NEG) Urine RBC (0) /HPF Urine WBC (0-4) /HPF Ur Squamous Epith Cells /LPF Urine Bacteria /LPF Urine Opiates Screen (Not Detect) Urine Fentanyl Screen (Not Detect) Ur Barbiturates Screen (Not Detect) Ur Phencyclidine Scrn (Not Detect) Ur Amphetamines Screen (Not Detect) U Benzodiazepines Scrn (Not Detect) Urine Cocaine Screen (Not Detect) U Marijuana (THC) Screen (Not Detect) Ethyl Alcohol mg/dL COVID-19 ([facility]AKIA) (Negative) COVID-19 Clin Com Influenza Type A ([place]) (Negative) Influenza Type B ([place]) (Negative) Influenza A & B Note 02/12/22 02/12/22 02/12/22 Range/Units 22:18 22:18 22:18 WBC (4.8-10.8) X10*3/uL RBC (4.20-5.50) X10*6/uL Hgb (12.0-16.0) g/dl Hct (37.0-47.0) % MCV (80.0-98.0) fL MCH (27.0-33.0) pg MCHC (31.0-35.0) g/dl RDW (11.0-16.0) % Plt Count (160-400) X10*3/uL MPV (9.4-12.3) fL Absolute Nucleated RBC (0.0-0.012) X10*3/uL Nucleated RBC % (auto) (0.0-0.2) /100WBC Sodium (135-145) mmol/L Potassium (3.3-5.1) mmol/L Chloride (96-108) mmol/L Carbon Dioxide (22-29) mmol/L Anion Gap (12-20) BUN (9-16) mg/dL Creatinine (0.5-1.4) mg/dL Estim Creat Clear Calc Estimated GFR POC Glucose (60-115) mg/dL Random Glucose (60-115) mg/dL Calcium (8.4-10.2) mg/dL Total Bilirubin (0.0-1.0) mg/dL AST (5-31) U/L ALT (0-31) U/L Alkaline Phosphatase (39-117) U/L Troponin I High Sens < 3.5 (<3.5-17.0) ng/L Total Protein (6.5-8.0) g/dL Albumin (3.5-5.0) g/dL Urine Color Urine Appearance Urine pH (5.0-8.0) Ur Specific [place] (1.005-1.025) Urine Protein (NEG-TRACE) MG/DL Urine Glucose (UA) (NEG) MG/DL Urine Ketones (NEG) MG/DL Urine Blood (NEG) Urine Nitrite (NEG) Ur Leukocyte Esterase (NEG) Urine RBC (0) /HPF Urine WBC (0-4) /HPF Ur Squamous Epith Cells /LPF Urine Bacteria /LPF Urine Opiates Screen (Not Detect) Urine Fentanyl Screen (Not Detect) Ur Barbiturates Screen (Not Detect) Ur Phencyclidine Scrn (Not Detect) Ur Amphetamines Screen (Not Detect) U Benzodiazepines Scrn (Not Detect) Urine Cocaine Screen (Not Detect) U Marijuana (THC) Screen (Not Detect) Ethyl Alcohol mg/dL COVID-19 (ZAKIA) Negative (Negative) COVID-19 Clin Com See Note Influenza Type A ([place]) Positive A (Negative) Influenza Type B ([place]) Negative (Negative) Influenza A & B Note See Note 02/12/22 02/13/22 02/13/22 Range/Units 22:18 00:15 00:45 WBC (4.8-10.8) X10*3/uL RBC (4.20-5.50) X10*6/uL Hgb (12.0-16.0) g/dl Hct (37.0-47.0) % MCV (80.0-98.0) fL MCH (27.0-33.0) pg MCHC (31.0-35.0) g/dl RDW (11.0-16.0) % Plt Count (160-400) X10*3/uL MPV (9.4-12.3) fL Absolute Nucleated RBC (0.0-0.012) X10*3/uL Nucleated RBC % (auto) (0.0-0.2) /100WBC Sodium (135-145) mmol/L Potassium (3.3-5.1) mmol/L Chloride (96-108) mmol/L Carbon Dioxide (22-29) mmol/L Anion Gap (12-20) BUN (9-16) mg/dL Creatinine (0.5-1.4) mg/dL Estim Creat Clear Calc Estimated GFR POC Glucose (60-115) mg/dL Random Glucose (60-115) mg/dL Calcium (8.4-10.2) mg/dL Total Bilirubin (0.0-1.0) mg/dL AST (5-31) U/L ALT (0-31) U/L Alkaline Phosphatase (39-117) U/L Troponin I High Sens (<3.5-17.0) ng/L Total Protein (6.5-8.0) g/dL Albumin (3.5-5.0) g/dL Urine Color YELLOW Urine Appearance CLEAR Urine pH 5.5 (5.0-8.0) Ur Specific [place] <= 1.005 (1.005-1.025) Urine Protein NEG (NEG-TRACE) MG/DL Urine Glucose (UA) NEG (NEG) MG/DL Urine Ketones NEG (NEG) MG/DL Urine Blood 2+ H (NEG) Urine Nitrite NEG (NEG) Ur Leukocyte Esterase NEG (NEG) Urine RBC 1-4 (0) /HPF Urine WBC 0 (0-4) /HPF Ur Squamous Epith Cells TRACE /LPF Urine Bacteria NONE /LPF Urine Opiates Screen Not Detected (Not Detect) Urine Fentanyl Screen Not Detected (Not Detect) Ur Barbiturates Screen Not Detected (Not Detect) Ur Phencyclidine Scrn Not Detected (Not Detect) Ur Amphetamines Screen Not Detected (Not Detect) U Benzodiazepines Scrn Not Detected (Not Detect) Urine Cocaine Screen Not Detected (Not Detect) U Marijuana (THC) Screen POSITIVE H (Not Detect) Ethyl Alcohol < 10 mg/dL COVID-19 (ZAKIA) (Negative) COVID-19 Clin Com Influenza Type A ([place]) (Negative) Influenza Type B ([place]) (Negative) Influenza A & B Note Imaging Data Left knee x-ray: Radiologist's impression: INDINGS: No acute fracture or subluxation. Severe medial compartment joint space narrowing. Prominent tricompartmental marginal osteophytes. No significant joint effusion. The soft tissues are unremarkable. XR/XR knee LT 3V IMPRESSION: No acute abnormality. Severe tricompartmental degenerative changes. ECG Data Attestation: I personally reviewed and interpreted this ECG as follows: (Sign- out rhythm, heart rate 73, no ST segment depression or elevation, no T-wave i nversion, QTC 429) Discharge Plan Discharge Clinical Impression: Influenza A, Knee pain, left Patient Disposition: Still a Patient Instructions: Influenza (ED) Additional Instructions: Please follow-up with your primary care physician tomorrow. If you have any worsening or new symptoms, please return to the emergency room or call 911 Prescriptions: New oseltamivir [Tamiflu] 75 mg capsule 75 mg PO BID 5 Days Qty: 10 0RF No Action aspirin 81 mg tablet,delayed release (DR/EC) 81 mg PO BEDTIME 0RF montelukast 10 mg tablet 10 mg PO BEDTIME 0RF Flovent HFA 220 mcg/actuation HFA aerosol inhaler 1 puff inhalation BID 0RF pravastatin 20 mg Tablet 20 mg PO BEDTIME 0RF omeprazole 40 mg Capsule,Delayed Release(Dr/Ec) 40 mg PO DAILY@0630 30 Days Qty: 30 0RF furosemide [Lasix] 20 mg tablet 10 mg PO DAILY Qty: 30 0RF metformin 500 mg tablet 500 mg PO DAILY@08 0RF Rx Instructions: TAKE WITH FOOD sennosides [senna] 8.6 mg tablet 1 tab PO BID PRN (Reason: constipation) 0RF thiamine HCl (vitamin B1) 100 mg tablet 1 tab PO DAILY 0RF folic acid 1 mg tablet 1 tab PO DAILY 0RF spironolactone 25 mg tablet 25 mg PO DAILY Qty: 30 0RF Hold Instructions: hold until repeat bmp with pcp outpatiently, restart as per pcp and nephro. quetiapine 25 mg tablet 1 tab PO BID 0RF hydralazine 25 mg tablet 1 tab PO TID 0RF Hold Instructions: hold until seen by pcp , may need to start as per blood pressure. ipratropium-albuterol 0.5 mg-3 mg(2.5 mg base)/3 mL solution for nebulization 1 amp inhalation QID PRN (Reason: Wheezing) 0RF albuterol sulfate [Ventolin HFA] 90 mcg/actuation HFA aerosol inhaler 2 inh inhalation Q4H PRN (Reason: Shortness Of Breath) 0RF metoprolol succinate 50 mg Tablet Extended Release 24 Hr 25 mg PO DAILY 30 Days Qty: 30 0RF Protocol: Hold for SBP/HR < HOLD for SBP < : 90 HOLD for HR < : 60
[2022-02-12 22:43] VITALS: BP 141/57; PULSE 80; RESP 22; TEMP 37; O2SAT 100
[2022-02-12 22:44] LABS: Troponin-I High Sensitivity < 3.5 ng/L (<3.5-17.0)
[2022-02-12 22:46] LABS: IDNOW Serial# 55D5AD1C; Influenza A Positive (Negative); Influenza B2 Negative (Negative)
[2022-02-12 22:47] LABS: COVID-19 Test Negative (Negative)
[2022-02-12 22:56] LABS: Alanine Aminotransferase 9 U/L (0-31); Alkaline Phosphatase 103 U/L (39-117); Anion Gap 12 (12-20); Aspartate Amino Transferase 14 U/L (5-31); Bilirubin Total 0.2 mg/dL (0.0-1.0); Blood Urea Nitrogen 37 mg/dL (9-16); Calcium 8.5 mg/dL (8.4-10.2); Carbon Dioxide 20 mmol/L (22-29); Chloride 98 mmol/L (96-108); Creatinine Clr Calc Pharmacy 47.8; Estimated Glomerular Filt Rate 48; Glucose Random 138 mg/dL (60-115); Potassium 4.8 mmol/L (3.3-5.1); Sodium 125 mmol/L (135-145); Total Protein 6.1 g/dL (6.5-8.0)
[2022-02-12 23:13] LABS: Ethanol < 10 mg/dL
[2022-02-13] VITALS (17 sets, daily range): BP systolic 107–145; BP diastolic 39–78; PULSE 68–85; RESP 17–21; TEMP 36.3–37.1; O2SAT 94–99
[2022-02-13 00:35] LABS: Amphetamine Screen Urine Not Detected (Not Detect); Barbiturates, Urine Not Detected (Not Detect); Benzodiazepines Screen Urine Not Detected (Not Detect); Cannabinoid Screen Urine POSITIVE (Not Detect); Cocaine Screen Urine Not Detected (Not Detect); Fentanyl, urine Not Detected (Not Detect); Opiate Screen Urine Not Detected (Not Detect); Phencyclidine Screen Urine Not Detected (Not Detect)
[2022-02-13 00:51] LABS: Appearance Urine CLEAR; Color Urine YELLOW; Glucose Urine UA NEG (NEG); Leukocyte Esterase Urine NEG (NEG); Nitrite Urine NEG (NEG); PH 5.5 (5.0-8.0); Specific Gravity - Urine <= 1.005 (1.005-1.025); UACC Culture Trigger NO; Urine Blood 2+ (NEG); Urine Ketones NEG (NEG); Urine Protein NEG (NEG-TRACE)
[2022-02-13] MEDS: Oseltamivir Phosphate 75 MG CAPSULE PO (00:58)
[2022-02-13] MEDS: Ibuprofen 600 MG TABLET PO (00:58)
[2022-02-13 01:12] LABS: Squamous Epithelial Cell Urine TRACE /LPF; WBC Urine 0 /HPF (0-4)
[2022-02-13] MEDS: Albuterol Sulfate 90 MCG 8 GM INHALER 2 PUFF INHALE ×2 (02:50→12:54)
--- NOTE | 2022-02-13 10:00 | PHA.MEDREC ---
Pharmacy Consult ? Medication Reconciliation Pharmacy has completed the medication reconciliation. List in patients chart that matched with claim history.
[2022-02-13 10:56] LABS: Glucose, Whole Blood 119 mg/dL (60-115)
[2022-02-13] MEDS: Oseltamivir Phosphate 30 MG CAPSULE PO ×2 (11:03→22:19)
--- NOTE | 2022-02-13 11:48 | MHC.CM.ED ---
Received case management consult from Dr Fragoso. Patient came to ER due to a syncopal episode. Patient found to have Flu A. Physical therapy eval completed. Short term rehab is being recommended. Patient is well known to case management. Patient is active with [facility]. Patient is also active with [facility]. HCP is invoked. Patient receved 2 Moderna vaccines. Due to having Flu A, patient will be difficult to place. Referral broadcasted within 25 miles. Continue to monitor for d/c needs.
--- NOTE | 2022-02-13 11:57 | PC.NURSE ---
boyfriendsamantha, would like to be contacted about any discharged plans
[2022-02-13] MEDS: Folic Acid 1 MG TABLET PO (12:55)
[2022-02-13] MEDS: Omeprazole 40 MG CAPSULE.DR PO (12:55)
[2022-02-13] MEDS: Metoprolol Succinate ER 25 MG TAB.ER.24H PO (12:55)
[2022-02-13] MEDS: QUEtiapine Fumarate 25 MG TABLET PO ×2 (12:56→20:52)
[2022-02-13] MEDS: Aspirin Enteric Coated 81 MG TABLET.DR PO (12:56)
[2022-02-13] MEDS: Furosemide 20 MG TABLET 10 MG PO (12:56)
[2022-02-13] MEDS: Thiamine HCL 100 MG TABLET PO (12:56)
[2022-02-13] MEDS: Albuterol/Iprat 2.5/0.5MG 3 ML AMPUL.NEB INHALE (13:11)
[2022-02-13 14:19] LABS: Glucose, Whole Blood 126 mg/dL (60-115)
--- NOTE | 2022-02-13 16:37 | MHC.CM.ED ---
HCP invoked lifelong 08/29/2020 and is on file. HCP/S.O Juanjo Montelongo ([phone]). CM updated Juanjo on pt assessment, Positive Flu, and need for 3 days Tamiflu prior to STR acceptance. Pt will be here through the weekend. Juanjo agreeable to STR. Pt received 2 does Moderna, 02/03/21 and 09/30/21. No booster. Several facilities interested in pt, but will not accept until [place] for flu x3-4 days. CM to follow for d/c needs.
[2022-02-13 17:15] LABS: Glucose, Whole Blood 118 mg/dL (60-115)
--- NOTE | 2022-02-13 19:28 | PC.NURSE ---
patient placed on purwick at this time. skin cleansed and linens changed. no distress
[2022-02-13] MEDS: Pravastatin Sodium 20 MG TABLET PO (20:52)
[2022-02-13] MEDS: Montelukast Sodium 10 MG TABLET PO (20:53)
[2022-02-13] MEDS: clonazePAM 0.5 MG TABLET PO (22:19)
--- NOTE | 2022-02-13 23:17 | PC.NURSE ---
Addendum entered by Eileen Christianson 02/14/22 07:05: Report given to REAGAN Romero Addendum entered by Eileen Christianson 02/13/22 23:35: pt is alert and oriented. resting in bed, no signs of acute distress notice. breathing equally unlabored Original Note: report received from REAGAN Hennessy
[2022-02-14] MEDS: LORazepam 1 MG TABLET PO (00:29)
[2022-02-14] MEDS: oxyCODONE HCl Immed Release 5 MG TABLET PO (00:29)
[2022-02-14 04:00] VITALS: RESP 16
[2022-02-14 08:11] VITALS: BP 116/56; PULSE 70; RESP 18; O2SAT 96
[2022-02-14] MEDS: Folic Acid 1 MG TABLET PO (08:13)
[2022-02-14] MEDS: Omeprazole 40 MG CAPSULE.DR PO (08:13)
[2022-02-14] MEDS: Metoprolol Succinate ER 25 MG TAB.ER.24H PO (08:13)
[2022-02-14] MEDS: Thiamine HCL 100 MG TABLET PO (08:13)
[2022-02-14] MEDS: Furosemide 20 MG TABLET 10 MG PO (08:13)
[2022-02-14] MEDS: QUEtiapine Fumarate 25 MG TABLET PO ×2 (08:13→22:19)
[2022-02-14] MEDS: Aspirin Enteric Coated 81 MG TABLET.DR PO (08:14)
[2022-02-14] MEDS: Albuterol Sulfate 90 MCG 8 GM INHALER 2 PUFF INHALE (08:18)
--- NOTE | 2022-02-14 08:21 | PC.NURSE ---
Pt took morning medicationas along with albuterol inhailer for coughing andmild wheezing. Sats are appropriate at this time (see documented VS). Pt being cleaned and set up for breakfast by instructor substitute cosmetology
[2022-02-14 08:51] LABS: Glucose, Whole Blood 116 mg/dL (60-115)
[2022-02-14 09:22] VITALS: BP 121/61; PULSE 63; RESP 22; O2SAT 98
[2022-02-14] MEDS: Oseltamivir Phosphate 30 MG CAPSULE PO ×2 (11:45→22:20)
[2022-02-14 22:18] VITALS: BP 124/64; PULSE 75; RESP 18; TEMP 36.8; O2SAT 98
[2022-02-14] MEDS: Montelukast Sodium 10 MG TABLET PO (22:19)
[2022-02-14] MEDS: Pravastatin Sodium 20 MG TABLET PO (22:19)
[2022-02-14] MEDS: clonazePAM 0.5 MG TABLET PO (22:20)
[2022-02-15 00:05] VITALS: BP 140/68; PULSE 69; RESP 18; TEMP 36.7; O2SAT 95
[2022-02-15 04:08] VITALS: BP 119/58; PULSE 70; RESP 20; O2SAT 97
[2022-02-15] MEDS: Omeprazole 40 MG CAPSULE.DR PO (05:54)
[2022-02-15 07:22] VITALS: BP 120/69; PULSE 83; RESP 18; TEMP 36.9; O2SAT 100
[2022-02-15 08:09] LABS: Glucose, Whole Blood 190 mg/dL (60-115)
[2022-02-15] MEDS: QUEtiapine Fumarate 25 MG TABLET PO ×2 (08:42→22:04)
[2022-02-15] MEDS: Metoprolol Succinate ER 25 MG TAB.ER.24H PO (08:42)
[2022-02-15] MEDS: Folic Acid 1 MG TABLET PO (08:42)
[2022-02-15] MEDS: Aspirin Enteric Coated 81 MG TABLET.DR PO (08:42)
[2022-02-15] MEDS: Thiamine HCL 100 MG TABLET PO (08:42)
[2022-02-15] MEDS: Furosemide 20 MG TABLET 10 MG PO (08:43)
--- NOTE | 2022-02-15 08:44 | PC.NURSE ---
patient sleeping, woke to verbal stimulus, no c/o pain or discomfort at this time, pt medicated per order, vss, call jones within reach, will continue to monitor
[2022-02-15] MEDS: Oseltamivir Phosphate 30 MG CAPSULE PO ×2 (11:52→22:04)
[2022-02-15 11:53] VITALS: BP 115/75; PULSE 81; RESP 18; O2SAT 98
[2022-02-15 12:22] LABS: Glucose, Whole Blood 104 mg/dL (60-115)
--- NOTE | 2022-02-15 14:07 | MHC.CM.ED ---
Pt continues holding for placement in ED: Barriers to transfer: + FLU A: pt is due to complete 72 hours of Tamiflu this evening (close to 11pm). Updates sent to STR referrals with this information. Varied SNF protocol for FLU + patients- most ask for 3 days of completed treatment: some 4 and others, the full 5 days. Pt should be able to transfer to an accepting facility on 02/16. Pt aware and in agreement with d/c plan. [facility] [place] [place] [facility] [place] [facility] following with possible consideration
[2022-02-15 18:31] LABS: Glucose, Whole Blood 113 mg/dL (60-115)
[2022-02-15] MEDS: Acetaminophen 325 MG TABLET 650 MG PO (19:04)
[2022-02-15] MEDS: Pravastatin Sodium 20 MG TABLET PO (22:04)
[2022-02-15] MEDS: Montelukast Sodium 10 MG TABLET PO (22:04)
[2022-02-15] MEDS: clonazePAM 0.5 MG TABLET PO (22:25)
[2022-02-15] MEDS: Baclofen 20 MG TABLET PO (22:26)
[2022-02-16] MEDS: Acetaminophen 325 MG TABLET 650 MG PO (03:52)
[2022-02-16 06:00] VITALS: BP 104/52; PULSE 74; RESP 18; TEMP 36
[2022-02-16] MEDS: Omeprazole 40 MG CAPSULE.DR PO (06:03)
[2022-02-16 08:09] VITALS: BP 110/53; PULSE 74; RESP 19; TEMP 36.4
[2022-02-16 08:15] VITALS: BP 118/64; PULSE 76
[2022-02-16 08:17] VITALS: BP 127/68; PULSE 77
--- NOTE | 2022-02-16 08:58 | MHC.CM.ED ---
Patient remains in ER. 02/12 positive for Flu A. Will received 8th dose of Tamiflu this morning. Clinical updates sent to facilities still following patient: [facility], [facility] and [facility]. Continue to monitor for d/c needs.
[2022-02-16 09:02] LABS: Glucose, Whole Blood 147 mg/dL (60-115)
[2022-02-16 09:24] VITALS: PULSE 73; RESP 18; O2SAT 100
[2022-02-16] MEDS: Fluticasone Propionate 250 MCG BLST.W.DEV 1 PUFF INHALE (09:24)
[2022-02-16] MEDS: Folic Acid 1 MG TABLET PO (09:54)
[2022-02-16] MEDS: Furosemide 20 MG TABLET 10 MG PO (09:54)
[2022-02-16] MEDS: Thiamine HCL 100 MG TABLET PO (09:54)
[2022-02-16] MEDS: QUEtiapine Fumarate 25 MG TABLET PO (09:54)
[2022-02-16] MEDS: Metoprolol Succinate ER 25 MG TAB.ER.24H PO (09:54)
[2022-02-16] MEDS: Aspirin Enteric Coated 81 MG TABLET.DR PO (09:54)
[2022-02-16] MEDS: Oseltamivir Phosphate 30 MG CAPSULE PO (10:00)
--- NOTE | 2022-02-16 11:11 | MHC.CM.ED ---
[facility] is able to offer a bed with a new neg covid test. Covid swab ordered and pending. Attempted to reach patient's HCP, Juanjo via telephone at [phone]. Left message stating patient would be discharged to [facility]. Patient is active with [facility] and [facility]. Spoke with Emily at [facility] via telephone at [phone]. Emily will continue to contact Juanjo. Continue to monitor for d/c needs.
[2022-02-16 11:17] LABS: COVID-19 Test Negative (Negative); IDNOW Serial# 16C4AD1C
--- NOTE | 2022-02-16 11:58 | MHC.CM.ED ---
Repeat Covid is negative. This test was uploaded via [facility]. [facility] booked for 1pm. [facility] with chart. Patient, Emily Geiger Katy RN and David VARGAS aware. Continue to monitor for d/c needs.
== END 2022-02-16 13:08 | disposition skilled nursing facility (03) ==
PROVIDERS: Emergency Medicine; Emergency Provider Emergency Medicine; PCP Internal Medicine Geriatric Medicine
DX: R55 Syncope and collapse (principal); J10.1 Influenza due to other identified influenza virus with other respiratory manifestations; M25.562 Pain in left knee; Z20.822 Contact with and (suspected) exposure to COVID-19; Z79.899 Other long term (current) drug therapy
CPT/HCPCS: 36415; 73562; 80053; 80307; 81001; 82077; 82947; 84484; 85027; 87502; 87635; 93005; 94640; 97162; 99285

== ENCOUNTER 2022-02-16 13:49 | Emergency (ER) | payer MEDICARE, MEDICAID, SELFPAY ==
[2022-02-16 14:02] VITALS: BP 134/68; PULSE 70; RESP 16; TEMP 36.8; O2SAT 100; BMI 37.2
[2022-02-16 14:06] VITALS: BP 128/64; PULSE 67; O2SAT 98
--- NOTE | 2022-02-16 14:47 | MHC.CM.ED ---
Patient was discharged to [facility]. When patient arrived at the facility, building stated they didn't know about her. Facility sent patient to ER. Referral made to [facility]. [facility] is able to accept patient. [facility] booked for next available. Elda KIRK and David VARGAS aware.
--- NOTE | 2022-02-16 15:34 | ED.GENADULT ---
HPI - General Adult General Chief complaint: General Medical Stated complaint: medical clearence Source: patient Mode of arrival: ambulatory Limitations: no limitations History of Present Illness HPI narrative: 66-year-old female recently discharged this morning to [facility] for placement return to the ED. apparently as per EMS very mild to facility states did not get any report on patient coming to the facility so they cannot except patient and patient had to return to the ED. patient denies any symptoms. Related Data Home Medications Medication Instructions Recorded Confirmed aspirin 81 mg tablet,delayed 81 mg PO DAILY 08/18/20 02/13/22 release fluticasone propionate 220 1 puff INHALATION BID 08/18/20 02/13/22 mcg/actuation HFA aerosol inhaler (Flovent HFA) montelukast 10 mg tablet 10 mg PO BEDTIME 08/18/20 02/13/22 pravastatin 20 mg tablet 20 mg PO BEDTIME 10/10/20 02/13/22 folic acid 1 mg tablet 1 tab PO DAILY 02/04/21 02/13/22 sennosides 8.6 mg tablet (senna) 1 tab PO BID PRN 02/04/21 02/13/22 thiamine HCl (vitamin B1) 100 mg 1 tab PO DAILY 02/04/21 02/13/22 tablet quetiapine 25 mg tablet 1 tab PO BID 07/05/21 02/13/22 ipratropium 0.5 mg-albuterol 3 mg 1 amp INHALATION Q4H PRN 11/24/21 02/13/22 (2.5 mg base)/3 mL nebulization soln albuterol sulfate 90 mcg/actuation 2 inh INHALATION Q6H PRN 12/20/21 02/13/22 aerosol inhaler (Ventolin HFA) acetaminophen 650 mg 1 tab PO BID PRN 02/13/22 02/13/22 tablet,extended release baclofen 20 mg tablet 20 mg PO DAILY PRN 02/13/22 02/13/22 clonazepam 1 mg tablet 0.5 mg PO BID PRN 02/13/22 02/13/22 metoprolol succinate 25 mg 1 tab PO DAILY 02/13/22 02/13/22 tablet,extended release 24 hr ondansetron 4 mg disintegrating 4 mg PO Q12H PRN 02/13/22 02/13/22 tablet Previous Rx's Medication Instructions Recorded furosemide 20 mg tablet (Lasix) 10 mg PO DAILY #30 tab 05/10/21 omeprazole 40 mg capsule,delayed 40 mg PO DAILY@0630 30 Days #30 cap 05/10/21 release oseltamivir 75 mg capsule (Tamiflu) 75 mg PO BID 5 Days #10 cap 02/13/22 Allergies Allergy/AdvReac Type Severity Reaction Status Date / Time advair Allergy Unknown Unknown Uncoded 11/24/21 17:31 paxil Allergy Unknown Unknown Uncoded 11/24/21 17:31 From PAXIL AdvReac Intermediate NAUSEA & Uncoded 11/24/21 17:31 VOMITING Review of Systems Review of Systems: Case management placement Yes all other systems are reviewed and are negative [facility] Past Medical History Medical History Acute hyponatremia Alcohol use disorder Bipolar 1 disorder Bipolar I disorder Chronic hyponatremia Congestive heart failure COPD (chronic obstructive pulmonary disease) Coronary artery disease Dementia Diabetes Hypertension Korsakoff disease Osteoarthritis Schizophrenia Sleep apnea Surgical History Hx of appendectomy Social History Social History Household Members: Spouse Housing: Apartment Do you presently have visiting nurse or other home services: Yes Unable to assess alcohol history related to: Unknown Alcohol intake: never Patient Tobacco Use Status: Current everyday Tobacco user Tobacco use type: Cigarette Cigarettes Per Day: 5 Years Smoked: 52 e-Cigarette/Vaping Use: Currently Using Second Hand Smoke Exposure: Yes Substance Use Type: Marijuana Advance Directives: Yes Advance Directives on File: Yes Advance Directives Date on File: 10/10/20 service: No Current occupational status: unemployed, disabled and other Physical Exam ED Vital Signs: Vital Signs - 24 hr 02/16/22 14:02 Temperature 98.3 F Pulse Rate 70 Respiratory Rate 16 Blood Pressure 134/68 Pulse Oximetry 100 BMI result Body Mass Index 37.2 Const General: cooperative, healthy appearing, comfortable, no acute distress, well developed, alert and awake Orientation/consciousness: patient oriented x3 HENMT Head: Yes normal to inspection, Yes No palpable skull fracture present, Yes normocephalic, Yes atraumatic and No abrasion Eyes General: appearance normal, both eyes and all related structures Neck Neck: Yes normal visual inspection, Yes full ROM, Yes no lymphadenopathy, Yes no meningeal signs, Yes trachea midline, Yes supple, No anterior neck swelling and No tender Chest Chest palpation & inspection: normal inspection of the chest and normal palpation of entire chest wall Resp Effort & Inspection: normal respiratory effort and able to speak in complete sentences Auscultation: clear to auscultation bilaterally Cardio Jugular venous distension: no JVD Heart sounds: S1 normal heart sound present and S2 normal heart sound present GI Inspection: Yes normal to inspection and No abdominal wall ecchymosis Palpation (GI): Soft to palpation, not firm, nontender, no guarding and not rigid General: No CVA tenderness and Yes no CVA tenderness Back/Spine/Pelvis Back: no CVA tenderness, No CVA tenderness and No back tenderness Skin General skin exam: no rashes or lesions noted and elasticity normal Neuro General: patient oriented x3, gait normal, no meningeal signs and CN's II-XI intact bilaterally Cranial nerves: Yes CN's II-XII intact bilaterally Extrem General: Yes normal to inspection and Yes full ROM Psych Appearance: grossly normal, well kempt and not disheveled Course Course Course Narrative: Patient discussed with caser in [place] Reevaluation(s) Reevaluation #1: no need for medical re-evaluation. Disucssed case with caser in [place] and patient will be going back to [place] and for placement. Patient comfortable and at baseline. Medical Decision Making MDM Narrative Medical decision making narrative: Placement Discharge Plan Discharge Clinical Impression: Leg pain, right Patient Disposition: er [facility] Prescriptions: No Action aspirin 81 mg tablet,delayed release (DR/EC) 81 mg PO DAILY 0RF montelukast 10 mg tablet 10 mg PO BEDTIME 0RF Flovent HFA 220 mcg/actuation HFA aerosol inhaler 1 puff inhalation BID 0RF pravastatin 20 mg Tablet 20 mg PO BEDTIME 0RF omeprazole 40 mg Capsule,Delayed Release(Dr/Ec) 40 mg PO DAILY@0630 30 Days Qty: 30 0RF furosemide [Lasix] 20 mg tablet 10 mg PO DAILY Qty: 30 0RF sennosides [senna] 8.6 mg tablet 1 tab PO BID PRN (Reason: constipation) 0RF thiamine HCl (vitamin B1) 100 mg tablet 1 tab PO DAILY 0RF folic acid 1 mg tablet 1 tab PO DAILY 0RF quetiapine 25 mg tablet 1 tab PO BID 0RF ipratropium-albuterol 0.5 mg-3 mg(2.5 mg base)/3 mL solution for nebulization 1 amp inhalation Q4H PRN (Reason: Wheezing) 0RF albuterol sulfate [Ventolin HFA] 90 mcg/actuation HFA aerosol inhaler 2 inh inhalation Q6H PRN (Reason: Shortness Of Breath) 0RF oseltamivir [Tamiflu] 75 mg capsule 75 mg PO BID 5 Days Qty: 10 0RF acetaminophen 650 mg tablet extended release 1 tab PO BID PRN (Reason: pain) 0RF metoprolol succinate 25 mg tablet extended release 24 hr 1 tab PO DAILY 0RF clonazepam 1 mg Tablet 0.5 mg PO BID PRN (Reason: Anxiety) 0RF baclofen 20 mg Tablet 20 mg PO DAILY PRN (Reason: Back Pain) 0RF ondansetron 4 mg Tablet,Disintegrating 4 mg PO Q12H PRN (Reason: Nausea And Vomiting) 0RF Interventions: ED Discharge Assessment Last Done: 02/16/22 14:57 Discharge Date/Time: 02/16/22 14:57
== END 2022-02-16 14:57 | disposition skilled nursing facility (03) ==
PROVIDERS: Emergency Provider Emergency Medicine; PCP Internal Medicine Geriatric Medicine
DX: M79.604 Pain in right leg (principal); E11.9 Type 2 diabetes mellitus without complications; I10 Essential (primary) hypertension; Z79.899 Other long term (current) drug therapy; Z79.82 Long term (current) use of aspirin
CPT/HCPCS: 99282

== ENCOUNTER 2022-02-23 09:36 | Emergency (ER) | payer MEDICARE, MEDICAID, SELFPAY ==
--- NOTE | ~2022-02-23 | CT_ITS ---
EXAMINATION: CT ANGIOGRAM OF THE CHEST WITH AND WITHOUT CONTRAST (CT PULMONARY ANGIOGRAM FOR PE) CLINICAL INFORMATION: Indeterminate VQ scan. Dyspnea. Chest pain. COMPARISON: Chest radiograph done earlier the same day. CT chest dated 12/22/2021. TECHNIQUE: Prior to contrast administration, noncontrast localization images were obtained. Subsequently, multidetector volumetric imaging was performed from the thoracic inlet to below the diaphragms following the administration of 65 mL Omnipaque 350 intravenous contrast. No contrast reaction reported. Sagittal, coronal, and MIP oblique sagittal reformatted images were obtained on the CT workstation, uploaded to PACS, and reviewed. This CT examination was performed using dose optimization techniques as appropriate, variously including the following: *Automated exposure control. *Adjustment of mA and/or kV according to patient size (this includes techniques or standardized protocols for targeted exams where dose is matched to indication/reason for exam; i.e. extremities or head). *Use of iterative reconstruction technique. Total exam dose-length product 446 mGy-cm. FINDINGS: QUALITY OF STUDY/CONTRAST BOLUS: Satisfactory. PULMONARY ARTERIES: No central or segmental pulmonary emboli. THORACIC AORTA: No aneurysm or dissection. LUNG: No focal consolidation, nodules or masses. PLEURA: No pleural effusion or pneumothorax. MEDIASTINUM: Normal heart size. No pericardial effusion. No hilar or mediastinal lymphadenopathy. No evidence of septal bowing or right heart strain. CHEST WALL/AXILLA: No axillary or internal mammary lymphadenopathy. OSSEOUS STRUCTURES: No acute or suspicious osseous abnormality. UPPER ABDOMEN: Partially visualized hepatomegaly. Diverticulosis. No reflux of contrast into the hepatic veins to suggest elevated right heart pressures. CT/CT angio chest PE protocol IMPRESSION: No CT angiography evidence of acute pulmonary embolism. VTE: Negative.
--- NOTE | ~2022-02-23 | XR_ITS ---
EXAMINATION: XR CHEST CLINICAL INFORMATION: Dyspnea. COMPARISON: None TECHNIQUE: Frontal view of the chest was obtained. FINDINGS: No airspace consolidation. No pleural effusion or pneumothorax. Stable cardiomediastinal silhouette. Bilateral glenohumeral osteoarthritis, right greater than left. XR/XR chest 1V IMPRESSION: No acute pulmonary findings.
--- NOTE | ~2022-02-23 | NM_ITS ---
EXAMINATION: PULMONARY PERFUSION STUDY CLINICAL INFORMATION: Chest pain and dyspnea. COMPARISON: Chest radiograph done earlier today at 10:37 AM. TECHNIQUE: The patient received 4 mCi Tc-99m MAA intravenously and a 6-view perfusion study was performed. FINDINGS: There is a small segmental defect in the lateral right upper lobe. Otherwise, there is homogeneous distribution of activity bilaterally. There are no anatomic appearing perfusion defects present. NM/NM pul perfusion IMPRESSION: There is a small subsegmental defect in the lateral right upper lobe. According to PIOPED II criteria, this constitutes a nondiagnostic category (low or intermediate probability). Perfusion-only interpretation reduces both the specificity and the proportion of nondiagnostic readings compared to ventilation and perfusion using modified PIOPED II criteria
--- NOTE | 2022-02-23 09:41 | ED_ITS ---
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 She is very anxious. She states onset at rest. She feels better now after EMS gave her ASA prior to arrival. She is 100% on RA at this time. She was seen here recently for RLE pain with negative DVT study. She is anxious and states she cannot breathe but 100% on RA and when calmed down by sheet metal installer she states she feels better. MD complaint: chest pain (dyspnea) Pertinent past history: asthma Onset (ago): hour(s) (1.5) Timing of current episode: other (improving) Prior episodes: Yes Onset: during rest Pain location: substernal Pain radiation: none Severity: moderate Quality: tightness Relieving factors: other (aspirin, slow breathing) Exacerbating factors: nothing and other Context: other (influenza this month, hx of CHF - reports compliance with medications) Associated symptoms: dyspnea Treatment prior to arrival: aspirin Related Data Home Medications Medication Instructions Recorded Confirmed aspirin 81 mg tablet,delayed 81 mg PO DAILY 08/18/20 02/13/22 release fluticasone propionate 220 1 puff INHALATION BID 08/18/20 02/13/22 mcg/actuation HFA aerosol inhaler (Flovent HFA) montelukast 10 mg tablet 10 mg PO BEDTIME 08/18/20 02/13/22 pravastatin 20 mg tablet 20 mg PO BEDTIME 10/10/20 02/13/22 folic acid 1 mg tablet 1 tab PO DAILY 02/04/21 02/13/22 sennosides 8.6 mg tablet (senna) 1 tab PO BID PRN 02/04/21 02/13/22 thiamine HCl (vitamin B1) 100 mg 1 tab PO DAILY 02/04/21 02/13/22 tablet quetiapine 25 mg tablet 1 tab PO BID 07/05/21 02/13/22 ipratropium 0.5 mg-albuterol 3 mg 1 amp INHALATION Q4H PRN 11/24/21 02/13/22 (2.5 mg base)/3 mL nebulization soln albuterol sulfate 90 mcg/actuation 2 inh INHALATION Q6H PRN 12/20/21 02/13/22 aerosol inhaler (Ventolin HFA) acetaminophen 650 mg 1 tab PO BID PRN 02/13/22 02/13/22 tablet,extended release baclofen 20 mg tablet 20 mg PO DAILY PRN 02/13/22 02/13/22 clonazepam 1 mg tablet 0.5 mg PO BID PRN 02/13/22 02/13/22 metoprolol succinate 25 mg 1 tab PO DAILY 02/13/22 02/13/22 tablet,extended release 24 hr ondansetron 4 mg disintegrating 4 mg PO Q12H PRN 02/13/22 02/13/22 tablet Previous Rx's Medication Instructions Recorded furosemide 20 mg tablet (Lasix) 10 mg PO DAILY #30 tab 05/10/21 omeprazole 40 mg capsule,delayed 40 mg PO DAILY@0630 30 Days #30 cap 05/10/21 release oseltamivir 75 mg capsule (Tamiflu) 75 mg PO BID 5 Days #10 cap 02/13/22 Allergies Allergy/AdvReac Type Severity Reaction Status Date / Time advair Allergy Unknown Unknown Uncoded 11/24/21 17:31 paxil Allergy Unknown Unknown Uncoded 11/24/21 17:31 From PAXIL AdvReac Intermediate NAUSEA & Uncoded 11/24/21 17:31 VOMITING Review of Systems Review of Systems: Constitutional : No Fever, No Chills ENT/Mouth : No sore throat, No Rhinorrhea, No Swallowing Difficulty Eyes: No Eye Pain, No Swelling, No Redness Cardiovascular : No Chest Pain, positive SOB, No Orthopnea, positive Edema Respiratory : No Cough, No Sputum, No Wheezing, positive dyspnea Gastrointestinal : No Nausea, No Vomiting, No Diarrhea, No abdominal Pain, No Hematochezia, No Melena Genitourinary : No Dysuria, No Urinary Frequency, No Hematuria Musculoskeletal : No joint pain, No Myalgias Skin : No Skin Lesions, No rash Neuro : No Weakness, No Numbness, No Dizziness, No Headache Psych : No Anxiety/Panic, No Depression Heme/Lymph: No Bruising, No Lymphadenopathy Endocrine : No Polyuria, No Polydipsia All other systems reviewed and are negative [facility] Past Medical History Attestation statement: The following information was validated with the patient. Medical History Acute hyponatremia Alcohol use disorder Bipolar 1 disorder Bipolar I disorder Chronic hyponatremia Congestive heart failure COPD (chronic obstructive pulmonary disease) Coronary artery disease Dementia Diabetes Hypertension Korsakoff disease Osteoarthritis Schizophrenia Sleep apnea Surgical History Hx of appendectomy Social History Social History Household Members: Spouse Housing: Apartment Do you presently have visiting nurse or other home services: Yes Unable to assess alcohol history related to: Unknown Alcohol intake: never Patient Tobacco Use Status: Current everyday Tobacco user Tobacco use type: Cigarette Cigarettes Per Day: 5 Years Smoked: 52 e-Cigarette/Vaping Use: Currently Using Second Hand Smoke Exposure: Yes Use of substances other than those prescribed or required for medical reasons: No Substance Use Type: Marijuana Advance Directives: Yes Advance Directives on File: Yes Advance Directives Date on File: 10/10/20 service: No Current occupational status: unemployed, disabled and other Physical Exam Vital Signs: Vital Signs: Last Vital Signs Temp 98.8 F 02/23/22 13:02 Pulse 71 02/23/22 13:02 Resp 18 02/23/22 13:02 BP 138/75 02/23/22 13:02 Pulse Ox 100 02/23/22 13:02 BMI result Body Mass Index 26.2 Appearance: Alert. Oriented X2 (does not know the month or year). No acute distress. Anxious Eyes: Pupils equal, round and reactive to light. ENT: Pharynx normal. Neck: Normal inspection. Neck supple. CVS: Normal heart rate and rhythm. Pulses normal. Respiratory: No respiratory distress. Breath sounds diminished throughout coarse Abdomen: Soft and non-tender. Skin: Skin warm and dry. Normal skin color. Normal skin turgor. Extremities: pitting 1+ lower extremity edema. No calf ttp Neuro: Oriented X 2. No motor deficit. No sensory deficit. Course Course Course Narrative: repeat trop negative, EKG nonischemic VQ scan pending, hemoglobin at baseline, no signs of infection on CXR, 100% on arrival, BNP negative plan to DC back to SNF if VQ scan negative, indeterminate VQ scan will obtain CTA at this time would not start AC unless sure given hx of prior anemia and has issues with bipolar/schizophrenia so it should be definitive whether or not the patient has PE prior to DOAC signed out to Dr. Martin pending CTA MDM - Chest Pain MDM Narrative Medical decision making narrative: 66 yo female with hx of CHF, COPD, DANO, CAD, DM, HTN, ETOH abuse and Korsakoff, asthma, hyponatremia/UTI presents today with c/o onset of 1.5 hours ago of diff breathing and chest tightness at this time will need labs, CXR for pneumonia, EK G, troponin x 2, ddimer, albuterol treatment, does have hx of CHF mild pitting edema. Dispo per results and findings. EKG no sig change from prior. Lab Data Result diagrams: 02/23/22 10:30 02/23/22 10:30 Labs: Lab Results 02/23/22 02/23/22 02/23/22 Range/Units 10:30 10:30 10:30 WBC 5.0 (4.8-10.8) X10*3/uL RBC 3.35 L (4.20-5.50) X10*6/uL Hgb 9.7 L (12.0-16.0) g/dl Hct 30.0 L (37.0-47.0) % MCV 89.6 (80.0-98.0) fL MCH 29.0 (27.0-33.0) pg MCHC 32.3 (31.0-35.0) g/dl RDW 14.6 (11.0-16.0) % Plt Count 417 H D (160-400) X10*3/uL MPV 8.6 L (9.4-12.3) fL Immature Gran % (Auto) 0.2 (0.0-0.4) % Neut % (Auto) 44.6 L (45-73) % Lymph % (Auto) 40.7 H (20-40) % Wheeler % (Auto) 12.7 H (2-11) % Eos % (Auto) 1.6 (0-4) % Baso % (Auto) 0.2 (0-2) % Lymph # (Auto) 2.1 (1.2-4.9) X10*3/uL Wheeler # (Auto) 0.6 (0.1-1.2) X10*3/uL Eos # (Auto) 0.1 (0.0-0.4) X10*3/uL Baso # (Auto) 0.0 (0.0-0.2) X10*3/uL Abs Immat Gran (auto) 0.01 (0.00-0.03) X10*3/uL Absolute Neuts (auto) 2.3 (2.0-8.3) x10*3/uL Absolute Nucleated RBC 0.000 (0.0-0.012) X10*3/uL Nucleated RBC % (auto) 0.0 (0.0-0.2) /100WBC PT 11.0 (9.9-13.0) SEC INR 1.0 (0.9-1.1) D-Dimer High Sensitivty 254 NG/ML VBG pH (7.32-7.43) VBG pCO2 mmHg VBG pO2 mmHg VBG HCO3 (22-26) mmol/L VBG O2 Saturation % VBG Base Excess mmol/L Sodium 133 L (135-145) mmol/L Potassium 5.3 H (3.3-5.1) mmol/L Chloride 99 (96-108) mmol/L Carbon Dioxide 24 (22-29) mmol/L Anion Gap 15 (12-20) BUN 31 H (9-16) mg/dL Creatinine 1.26 (0.5-1.4) mg/dL Estim Creat Clear Calc 40.8 Estimated GFR 42 Random Glucose 120 H (60-115) mg/dL Calcium 9.7 D (8.4-10.2) mg/dL Magnesium 2.4 (1.6-2.6) mg/dL Total Bilirubin 0.3 (0.0-1.0) mg/dL Direct Bilirubin < 0.2 (0.0-0.5) mg/dL AST 14 (5-31) U/L ALT 10 (0-31) U/L Alkaline Phosphatase 107 (39-117) U/L Troponin I High Sens (<3.5-17.0) ng/L B-Natriuretic Peptide (<100) pg/mL Total Protein 7.0 (6.5-8.0) g/dL Albumin 3.4 L (3.5-5.0) g/dL Lipase 55 (8-78) U/L COVID-19 (ZAKIA) (Negative) COVID-19 Clin Com 02/23/22 02/23/22 02/23/22 Range/Units 10:30 10:30 10:42 WBC (4.8-10.8) X10*3/uL RBC (4.20-5.50) X10*6/uL Hgb (12.0-16.0) g/dl Hct (37.0-47.0) % MCV (80.0-98.0) fL MCH (27.0-33.0) pg MCHC (31.0-35.0) g/dl RDW (11.0-16.0) % Plt Count (160-400) X10*3/uL MPV (9.4-12.3) fL Immature Gran % (Auto) (0.0-0.4) % Neut % (Auto) (45-73) % Lymph % (Auto) (20-40) % Wheeler % (Auto) (2-11) % Eos % (Auto) (0-4) % Baso % (Auto) (0-2) % Lymph # (Auto) (1.2-4.9) X10*3/uL Wheeler # (Auto) (0.1-1.2) X10*3/uL Eos # (Auto) (0.0-0.4) X10*3/uL Baso # (Auto) (0.0-0.2) X10*3/uL Abs Immat Gran (auto) (0.00-0.03) X10*3/uL Absolute Neuts (auto) (2.0-8.3) x10*3/uL Absolute Nucleated RBC (0.0-0.012) X10*3/uL Nucleated RBC % (auto) (0.0-0.2) /100WBC PT (9.9-13.0) SEC INR (0.9-1.1) D-Dimer High Sensitivty NG/ML VBG pH 7.32 (7.32-7.43) VBG pCO2 48 mmHg VBG pO2 59 mmHg VBG HCO3 25 (22-26) mmol/L VBG O2 Saturation 82.0 % VBG Base Excess -1.0 mmol/L Sodium (135-145) mmol/L Potassium (3.3-5.1) mmol/L Chloride (96-108) mmol/L Carbon Dioxide (22-29) mmol/L Anion Gap (12-20) BUN (9-16) mg/dL Creatinine (0.5-1.4) mg/dL Estim Creat Clear Calc Estimated GFR Random Glucose (60-115) mg/dL Calcium (8.4-10.2) mg/dL Magnesium (1.6-2.6) mg/dL Total Bilirubin (0.0-1.0) mg/dL Direct Bilirubin (0.0-0.5) mg/dL AST (5-31) U/L ALT (0-31) U/L Alkaline Phosphatase (39-117) U/L Troponin I High Sens 3.7 (<3.5-17.0) ng/L B-Natriuretic Peptide 77 (<100) pg/mL Total Protein (6.5-8.0) g/dL Albumin (3.5-5.0) g/dL Lipase (8-78) U/L COVID-19 (ZAKIA) Negative (Negative) COVID-19 Clin Com See Note 02/23/22 Range/Units 12:56 WBC (4.8-10.8) X10*3/uL RBC (4.20-5.50) X10*6/uL Hgb (12.0-16.0) g/dl Hct (37.0-47.0) % MCV (80.0-98.0) fL MCH (27.0-33.0) pg MCHC (31.0-35.0) g/dl RDW (11.0-16.0) % Plt Count (160-400) X10*3/uL MPV (9.4-12.3) fL Immature Gran % (Auto) (0.0-0.4) % Neut % (Auto) (45-73) % Lymph % (Auto) (20-40) % Wheeler % (Auto) (2-11) % Eos % (Auto) (0-4) % Baso % (Auto) (0-2) % Lymph # (Auto) (1.2-4.9) X10*3/uL Wheeler # (Auto) (0.1-1.2) X10*3/uL Eos # (Auto) (0.0-0.4) X10*3/uL Baso # (Auto) (0.0-0.2) X10*3/uL Abs Immat Gran (auto) (0.00-0.03) X10*3/uL Absolute Neuts (auto) (2.0-8.3) x10*3/uL Absolute Nucleated RBC (0.0-0.012) X10*3/uL Nucleated RBC % (auto) (0.0-0.2) /100WBC PT (9.9-13.0) SEC INR (0.9-1.1) D-Dimer High Sensitivty NG/ML VBG pH (7.32-7.43) VBG pCO2 mmHg VBG pO2 mmHg VBG HCO3 (22-26) mmol/L VBG O2 Saturation % VBG Base Excess mmol/L Sodium (135-145) mmol/L Potassium (3.3-5.1) mmol/L Chloride (96-108) mmol/L Carbon Dioxide (22-29) mmol/L Anion Gap (12-20) BUN (9-16) mg/dL Creatinine (0.5-1.4) mg/dL Estim Creat Clear Calc Estimated GFR Random Glucose (60-115) mg/dL Calcium (8.4-10.2) mg/dL Magnesium (1.6-2.6) mg/dL Total Bilirubin (0.0-1.0) mg/dL Direct Bilirubin (0.0-0.5) mg/dL AST (5-31) U/L ALT (0-31) U/L Alkaline Phosphatase (39-117) U/L Troponin I High Sens < 3.5 (<3.5-17.0) ng/L B-Natriuretic Peptide (<100) pg/mL Total Protein (6.5-8.0) g/dL Albumin (3.5-5.0) g/dL Lipase (8-78) U/L COVID-19 ([facility]AKIA) (Negative) COVID-19 Clin Com ECG Data ECG #1: Attestation: I personally reviewed and interpreted this ECG as follows: ECG interpretation date: 02/23/22 ECG interpretation time: 10:03 Interpretation: Rate: 71 Rhythm: NSR [place]: left Normal P waves. Normal ANDRES. Normal QRS complex. ST T wave : no NAGELITO, inverted V1-V3 qTC: normal prior studies: no acute ischemia no change from prior The study has been interpreted contemporaneously by me. Discharge Plan Discharge Clinical Impression: Acute dyspnea Patient Disposition: Still a Patient Transfer Details: Camilo Willams Instructions: Dyspnea (ED) Additional Instructions: return to ED for any worsening symptoms or concerns EKG, chest xray - COVID swab negative, two heart blood tests negative, hemoglobin at baseline, BNP - CHF test negative, VQ scan for PE - negative Prescriptions: No Action aspirin 81 mg tablet,delayed release (DR/EC) 81 mg PO DAILY 0RF montelukast 10 mg tablet 10 mg PO BEDTIME 0RF Flovent HFA 220 mcg/actuation HFA aerosol inhaler 1 puff inhalation BID 0RF pravastatin 20 mg Tablet 20 mg PO BEDTIME 0RF omeprazole 40 mg Capsule,Delayed Release(Dr/Ec) 40 mg PO DAILY@0630 30 Days Qty: 30 0RF furosemide [Lasix] 20 mg tablet 10 mg PO DAILY Qty: 30 0RF sennosides [senna] 8.6 mg tablet 1 tab PO BID PRN (Reason: constipation) 0RF thiamine HCl (vitamin B1) 100 mg tablet 1 tab PO DAILY 0RF folic acid 1 mg tablet 1 tab PO DAILY 0RF quetiapine 25 mg tablet 1 tab PO BID 0RF ipratropium-albuterol 0.5 mg-3 mg(2.5 mg base)/3 mL solution for nebulization 1 amp inhalation Q4H PRN (Reason: Wheezing) 0RF albuterol sulfate [Ventolin HFA] 90 mcg/actuation HFA aerosol inhaler 2 inh inhalation Q6H PRN (Reason: Shortness Of Breath) 0RF oseltamivir [Tamiflu] 75 mg capsule 75 mg PO BID 5 Days Qty: 10 0RF acetaminophen 650 mg tablet extended release 1 tab PO BID PRN (Reason: pain) 0RF metoprolol succinate 25 mg tablet extended release 24 hr 1 tab PO DAILY 0RF clonazepam 1 mg Tablet 0.5 mg PO BID PRN (Reason: Anxiety) 0RF baclofen 20 mg Tablet 20 mg PO DAILY PRN (Reason: Back Pain) 0RF ondansetron 4 mg Tablet,Disintegrating 4 mg PO Q12H PRN (Reason: Nausea And Vomiting) 0RF Referrals: Name,MD Ryder [Primary Care Provider] - 2 days (if not better)
[2022-02-23 09:44] VITALS: BP 139/59; PULSE 72; O2SAT 100
--- NOTE | 2022-02-23 09:44 | ECG_ITS ---
Test Reason : CP Blood Pressure : / mmHG Vent. Rate : 071 BPM Atrial Rate : 071 BPM P-R Int : 146 ms QRS Dur : 088 ms QT Int : 394 ms P-R-T Axes : 056 -11 047 degrees QTc Int : 428 ms Sinus rhythm Possible Anteroseptal infarct , age undetermined Abnormal ECG When compared with ECG of 12-FEB-2022 22:05, Borderline criteria for Anteroseptal infarct are now Present Referred By: Generic ED Physician Electronically Signed By:CAMPOS KELLER MD
[2022-02-23 09:49] VITALS: BP 151/106; PULSE 71; RESP 20; TEMP 36.9; O2SAT 100; BMI 26.2
[2022-02-23] MEDS: Albuterol Sulfate (0.083%) 2.5 MG/3 ML VIAL.NEB INHALE (10:03)
[2022-02-23 10:04] VITALS: PULSE 72; O2SAT 100
[2022-02-23 10:35] VITALS: PULSE 80
[2022-02-23 10:38] LABS: Basophils Percent Auto 0.2 % (0-2); Eosinophils Absolute Auto 0.1 X10*3/uL (0.0-0.4); Eosinophils Percent Auto 1.6 % (0-4); Hemoglobin 9.7 g/dl (12.0-16.0); Imm Gran Abs Auto 0.01 X10*3/uL (0.00-0.03); Imm Gran Pct Auto 0.2 % (0.0-0.4); Lymphocytes Absolute Auto 2.1 X10*3/uL (1.2-4.9); Lymphocytes Percent Auto 40.7 % (20-40); MANUAL DIFF FLAG NO; Mean Corpuscular HGB Conc 32.3 g/dl (31.0-35.0); Mean Corpuscular Volume 89.6 fL (80.0-98.0); Mean Platelet Volume 8.6 fL (9.4-12.3); Monocytes Absolute Auto 0.6 X10*3/uL (0.1-1.2); Monocytes Percent Auto 12.7 % (2-11); Neutrophils Absolute Auto 2.3 x10*3/uL (2.0-8.3); Neutrophils Percent Auto 44.6 % (45-73); Platelet Count 417 X10*3/uL (160-400); Red Blood Count 3.35 X10*6/uL (4.20-5.50); Red Cell Distribution Width 14.6 % (11.0-16.0)
[2022-02-23 10:46] LABS: D Dimer High Sensitivity 254 NG/ML
[2022-02-23 10:50] LABS: VBG HCO3 25 mmol/L (22-26); VBG pCO2 48 mmHg; VBG pH 7.32 (7.32-7.43); VBG pO2 59 mmHg
[2022-02-23 10:56] LABS: Venous Blood Gas Refer to POC result
[2022-02-23 11:04] LABS: COVID-19 Test Negative (Negative); IDNOW Serial# 16C4AD1C
[2022-02-23 11:12] LABS: Alanine Aminotransferase 10 U/L (0-31); Albumin Level 3.4 g/dL (3.5-5.0); Alkaline Phosphatase 107 U/L (39-117); Anion Gap 15 (12-20); Aspartate Amino Transferase 14 U/L (5-31); Bilirubin Direct < 0.2 mg/dL (0.0-0.5); Bilirubin Total 0.3 mg/dL (0.0-1.0); Blood Urea Nitrogen 31 mg/dL (9-16); Calcium 9.7 mg/dL (8.4-10.2); Carbon Dioxide 24 mmol/L (22-29); Chloride 99 mmol/L (96-108); Creatinine Clr Calc Pharmacy 40.8; Estimated Glomerular Filt Rate 42; Glucose Random 120 mg/dL (60-115); Lipase 55 U/L (8-78); Magnesium 2.4 mg/dL (1.6-2.6); Potassium 5.3 mmol/L (3.3-5.1); Sodium 133 mmol/L (135-145); Troponin-I High Sensitivity 3.7 ng/L (<3.5-17.0)
[2022-02-23 11:42] LABS: B Type Natriuretic Peptide 77 pg/mL (<100)
[2022-02-23 13:02] VITALS: BP 138/75; PULSE 71; RESP 18; TEMP 37.1; O2SAT 100
[2022-02-23 13:48] LABS: Troponin-I High Sensitivity < 3.5 ng/L (<3.5-17.0)
[2022-02-23] MEDS: iohexoL 350 MG/ML 100 ML INFUS..BTL IV (15:41)
[2022-02-23 16:00] VITALS: BP 135/61; PULSE 69; RESP 16; TEMP 36.3; O2SAT 97
--- NOTE | 2022-02-23 17:14 | ED.CHESTPAIN ---
HPI - Chest Pain General Chief Complaint: Chest Pain Stated Complaint: CP,DIZZINESS Time Seen by Provider: 02/23/22 09:40 Source: patient, old records reviewed and collections representative Mode of arrival: EMS Limitations: other (poor historian) History of Present Illness Pain location: substernal Quality: tightness Relieving factors: other (aspirin, slow breathing) Exacerbating factors: nothing and other Context: other (influenza this month, hx of CHF - reports compliance with medications) Associated symptoms: dyspnea Related Data Home Medications Medication Instructions Recorded Confirmed aspirin 81 mg tablet,delayed 81 mg PO DAILY 08/18/20 02/13/22 release fluticasone propionate 220 1 puff INHALATION BID 08/18/20 02/13/22 mcg/actuation HFA aerosol inhaler (Flovent HFA) montelukast 10 mg tablet 10 mg PO BEDTIME 08/18/20 02/13/22 pravastatin 20 mg tablet 20 mg PO BEDTIME 10/10/20 02/13/22 folic acid 1 mg tablet 1 tab PO DAILY 02/04/21 02/13/22 sennosides 8.6 mg tablet (senna) 1 tab PO BID PRN 02/04/21 02/13/22 thiamine HCl (vitamin B1) 100 mg 1 tab PO DAILY 02/04/21 02/13/22 tablet quetiapine 25 mg tablet 1 tab PO BID 07/05/21 02/13/22 ipratropium 0.5 mg-albuterol 3 mg 1 amp INHALATION Q4H PRN 11/24/21 02/13/22 (2.5 mg base)/3 mL nebulization soln albuterol sulfate 90 mcg/actuation 2 inh INHALATION Q6H PRN 12/20/21 02/13/22 aerosol inhaler (Ventolin HFA) acetaminophen 650 mg 1 tab PO BID PRN 02/13/22 02/13/22 tablet,extended release baclofen 20 mg tablet 20 mg PO DAILY PRN 02/13/22 02/13/22 clonazepam 1 mg tablet 0.5 mg PO BID PRN 02/13/22 02/13/22 metoprolol succinate 25 mg 1 tab PO DAILY 02/13/22 02/13/22 tablet,extended release 24 hr ondansetron 4 mg disintegrating 4 mg PO Q12H PRN 02/13/22 02/13/22 tablet Previous Rx's Medication Instructions Recorded furosemide 20 mg tablet (Lasix) 10 mg PO DAILY #30 tab 05/10/21 omeprazole 40 mg capsule,delayed 40 mg PO DAILY@0630 30 Days #30 cap 05/10/21 release oseltamivir 75 mg capsule (Tamiflu) 75 mg PO BID 5 Days #10 cap 02/13/22 Allergies Allergy/AdvReac Type Severity Reaction Status Date / Time advair Allergy Unknown Unknown Uncoded 11/24/21 17:31 paxil Allergy Unknown Unknown Uncoded 11/24/21 17:31 From PAXIL AdvReac Intermediate NAUSEA & Uncoded 11/24/21 17:31 VOMITING PMFSH Past Medical History Medical History Acute hyponatremia Alcohol use disorder Bipolar 1 disorder Bipolar I disorder Chronic hyponatremia Congestive heart failure COPD (chronic obstructive pulmonary disease) Coronary artery disease Dementia Diabetes Hypertension Korsakoff disease Osteoarthritis Schizophrenia Sleep apnea Surgical History Hx of appendectomy Social History Social History Household Members: Spouse Housing: Apartment Do you presently have visiting nurse or other home services: Yes Unable to assess alcohol history related to: Unknown Alcohol intake: never Patient Tobacco Use Status: Current everyday Tobacco user Tobacco use type: Cigarette Cigarettes Per Day: 5 Years Smoked: 52 e-Cigarette/Vaping Use: Currently Using Second Hand Smoke Exposure: Yes Use of substances other than those prescribed or required for medical reasons: No Substance Use Type: Marijuana Advance Directives: Yes Advance Directives on File: Yes Advance Directives Date on File: 10/10/20 service: No Current occupational status: unemployed, disabled and other Physical Exam Vital Signs: Vital Signs: Last Vital Signs Temp 97.4 F 02/23/22 16:00 Pulse 69 02/23/22 16:00 Resp 16 02/23/22 16:00 BP 135/61 02/23/22 16:00 Pulse Ox 97 02/23/22 16:00 BMI result Body Mass Index 26.2 MDM - Chest Pain MDM Narrative Medical decision making narrative: Patient's CTA of the chest was grossly negative. No evidence for pulmonary emboli. Atypical chest pain. Will discharge patient home. Currently in stable condition. Lab Data Result diagrams: 02/23/22 10:30 02/23/22 10:30 Labs: Lab Results 02/23/22 02/23/22 02/23/22 Range/Units 10:30 10:30 10:30 WBC 5.0 (4.8-10.8) X10*3/uL RBC 3.35 L (4.20-5.50) X10*6/uL Hgb 9.7 L (12.0-16.0) g/dl Hct 30.0 L (37.0-47.0) % MCV 89.6 (80.0-98.0) fL MCH 29.0 (27.0-33.0) pg MCHC 32.3 (31.0-35.0) g/dl RDW 14.6 (11.0-16.0) % Plt Count 417 H D (160-400) X10*3/uL MPV 8.6 L (9.4-12.3) fL Immature Gran % (Auto) 0.2 (0.0-0.4) % Neut % (Auto) 44.6 L (45-73) % Lymph % (Auto) 40.7 H (20-40) % Vil[place] % (Auto) 12.7 H (2-11) % Eos % (Auto) 1.6 (0-4) % Baso % (Auto) 0.2 (0-2) % Lymph # (Auto) 2.1 (1.2-4.9) X10*3/uL [place] # (Auto) 0.6 (0.1-1.2) X10*3/uL Eos # (Auto) 0.1 (0.0-0.4) X10*3/uL Baso # (Auto) 0.0 (0.0-0.2) X10*3/uL Abs Immat Gran (auto) 0.01 (0.00-0.03) X10*3/uL Absolute Neuts (auto) 2.3 (2.0-8.3) x10*3/uL Absolute Nucleated RBC 0.000 (0.0-0.012) X10*3/uL Nucleated RBC % (auto) 0.0 (0.0-0.2) /100WBC PT 11.0 (9.9-13.0) SEC INR 1.0 (0.9-1.1) D-Dimer High Sensitivty 254 NG/ML VBG pH (7.32-7.43) VBG pCO2 mmHg VBG pO2 mmHg VBG HCO3 (22-26) mmol/L VBG O2 Saturation % VBG Base Excess mmol/L Sodium 133 L (135-145) mmol/L Potassium 5.3 H (3.3-5.1) mmol/L Chloride 99 (96-108) mmol/L Carbon Dioxide 24 (22-29) mmol/L Anion Gap 15 (12-20) BUN 31 H (9-16) mg/dL Creatinine 1.26 (0.5-1.4) mg/dL Estim Creat Clear Calc 40.8 Estimated GFR 42 Random Glucose 120 H (60-115) mg/dL Calcium 9.7 D (8.4-10.2) mg/dL Magnesium 2.4 (1.6-2.6) mg/dL Total Bilirubin 0.3 (0.0-1.0) mg/dL Direct Bilirubin < 0.2 (0.0-0.5) mg/dL AST 14 (5-31) U/L ALT 10 (0-31) U/L Alkaline Phosphatase 107 (39-117) U/L Troponin I High Sens (<3.5-17.0) ng/L B-Natriuretic Peptide (<100) pg/mL Total Protein 7.0 (6.5-8.0) g/dL Albumin 3.4 L (3.5-5.0) g/dL Lipase 55 (8-78) U/L COVID-19 ([facility]) (Negative) COVID-19 Clin Com 02/23/22 02/23/22 02/23/22 Range/Units 10:30 10:30 10:42 WBC (4.8-10.8) X10*3/uL RBC (4.20-5.50) X10*6/uL Hgb (12.0-16.0) g/dl Hct (37.0-47.0) % MCV (80.0-98.0) fL MCH (27.0-33.0) pg MCHC (31.0-35.0) g/dl RDW (11.0-16.0) % Plt Count (160-400) X10*3/uL MPV (9.4-12.3) fL Immature Gran % (Auto) (0.0-0.4) % Neut % (Auto) (45-73) % Lymph % (Auto) (20-40) % Vilas % (Auto) (2-11) % Eos % (Auto) (0-4) % Baso % (Auto) (0-2) % Lymph # (Auto) (1.2-4.9) X10*3/uL Vil[place] # (Auto) (0.1-1.2) X10*3/uL Eos # (Auto) (0.0-0.4) X10*3/uL Baso # (Auto) (0.0-0.2) X10*3/uL Abs Immat Gran (auto) (0.00-0.03) X10*3/uL Absolute Neuts (auto) (2.0-8.3) x10*3/uL Absolute Nucleated RBC (0.0-0.012) X10*3/uL Nucleated RBC % (auto) (0.0-0.2) /100WBC PT (9.9-13.0) SEC INR (0.9-1.1) D-Dimer High Sensitivty NG/ML VBG pH 7.32 (7.32-7.43) VBG pCO2 48 mmHg VBG pO2 59 mmHg VBG HCO3 25 (22-26) mmol/L VBG O2 Saturation 82.0 % VBG Base Excess -1.0 mmol/L Sodium (135-145) mmol/L Potassium (3.3-5.1) mmol/L Chloride (96-108) mmol/L Carbon Dioxide (22-29) mmol/L Anion Gap (12-20) BUN (9-16) mg/dL Creatinine (0.5-1.4) mg/dL Estim Creat Clear Calc Estimated GFR Random Glucose (60-115) mg/dL Calcium (8.4-10.2) mg/dL Magnesium (1.6-2.6) mg/dL Total Bilirubin (0.0-1.0) mg/dL Direct Bilirubin (0.0-0.5) mg/dL AST (5-31) U/L ALT (0-31) U/L Alkaline Phosphatase (39-117) U/L Troponin I High Sens 3.7 (<3.5-17.0) ng/L B-Natriuretic Peptide 77 (<100) pg/mL Total Protein (6.5-8.0) g/dL Albumin (3.5-5.0) g/dL Lipase (8-78) U/L COVID-19 ([facility]) Negative (Negative) COVID-19 Clin Com See Note 02/23/22 Range/Units 12:56 WBC (4.8-10.8) X10*3/uL RBC (4.20-5.50) X10*6/uL Hgb (12.0-16.0) g/dl Hct (37.0-47.0) % MCV (80.0-98.0) fL MCH (27.0-33.0) pg MCHC (31.0-35.0) g/dl RDW (11.0-16.0) % Plt Count (160-400) X10*3/uL MPV (9.4-12.3) fL Immature Gran % (Auto) (0.0-0.4) % Neut % (Auto) (45-73) % Lymph % (Auto) (20-40) % Vilas % (Auto) (2-11) % Eos % (Auto) (0-4) % Baso % (Auto) (0-2) % Lymph # (Auto) (1.2-4.9) X10*3/uL [place] # (Auto) (0.1-1.2) X10*3/uL Eos # (Auto) (0.0-0.4) X10*3/uL Baso # (Auto) (0.0-0.2) X10*3/uL Abs Immat Gran (auto) (0.00-0.03) X10*3/uL Absolute Neuts (auto) (2.0-8.3) x10*3/uL Absolute Nucleated RBC (0.0-0.012) X10*3/uL Nucleated RBC % (auto) (0.0-0.2) /100WBC PT (9.9-13.0) SEC INR (0.9-1.1) D-Dimer High Sensitivty NG/ML VBG pH (7.32-7.43) VBG pCO2 mmHg VBG pO2 mmHg VBG HCO3 (22-26) mmol/L VBG O2 Saturation % VBG Base Excess mmol/L Sodium (135-145) mmol/L Potassium (3.3-5.1) mmol/L Chloride (96-108) mmol/L Carbon Dioxide (22-29) mmol/L Anion Gap (12-20) BUN (9-16) mg/dL Creatinine (0.5-1.4) mg/dL Estim Creat Clear Calc Estimated GFR Random Glucose (60-115) mg/dL Calcium (8.4-10.2) mg/dL Magnesium (1.6-2.6) mg/dL Total Bilirubin (0.0-1.0) mg/dL Direct Bilirubin (0.0-0.5) mg/dL AST (5-31) U/L ALT (0-31) U/L Alkaline Phosphatase (39-117) U/L Troponin I High Sens < 3.5 (<3.5-17.0) ng/L B-Natriuretic Peptide (<100) pg/mL Total Protein (6.5-8.0) g/dL Albumin (3.5-5.0) g/dL Lipase (8-78) U/L COVID-19 ([facility]) (Negative) COVID-19 Clin Com Discharge Plan Discharge Clinical Impression: Acute dyspnea Patient Disposition: Home, Self-Care Transfer Details: [facility] [place] Instructions: Dyspnea (ED) Additional Instructions: return to ED for any worsening symptoms or concerns EKG, chest xray - COVID swab negative, two heart blood tests negative, hemoglobin at baseline, BNP - CHF test negative, VQ scan for PE - negative Prescriptions: No Action aspirin 81 mg tablet,delayed release (DR/EC) 81 mg PO DAILY 0RF montelukast 10 mg tablet 10 mg PO BEDTIME 0RF Flovent HFA 220 mcg/actuation HFA aerosol inhaler 1 puff inhalation BID 0RF pravastatin 20 mg Tablet 20 mg PO BEDTIME 0RF omeprazole 40 mg Capsule,Delayed Release(Dr/Ec) 40 mg PO DAILY@0630 30 Days Qty: 30 0RF furosemide [Lasix] 20 mg tablet 10 mg PO DAILY Qty: 30 0RF sennosides [senna] 8.6 mg tablet 1 tab PO BID PRN (Reason: constipation) 0RF thiamine HCl (vitamin B1) 100 mg tablet 1 tab PO DAILY 0RF folic acid 1 mg tablet 1 tab PO DAILY 0RF quetiapine 25 mg tablet 1 tab PO BID 0RF ipratropium-albuterol 0.5 mg-3 mg(2.5 mg base)/3 mL solution for nebulization 1 amp inhalation Q4H PRN (Reason: Wheezing) 0RF albuterol sulfate [Ventolin HFA] 90 mcg/actuation HFA aerosol inhaler 2 inh inhalation Q6H PRN (Reason: Shortness Of Breath) 0RF oseltamivir [Tamiflu] 75 mg capsule 75 mg PO BID 5 Days Qty: 10 0RF acetaminophen 650 mg tablet extended release 1 tab PO BID PRN (Reason: pain) 0RF metoprolol succinate 25 mg tablet extended release 24 hr 1 tab PO DAILY 0RF clonazepam 1 mg Tablet 0.5 mg PO BID PRN (Reason: Anxiety) 0RF baclofen 20 mg Tablet 20 mg PO DAILY PRN (Reason: Back Pain) 0RF ondansetron 4 mg Tablet,Disintegrating 4 mg PO Q12H PRN (Reason: Nausea And Vomiting) 0RF Referrals: Name,MD Ryder [Primary Care Provider] - 2 days (if not better)
== END 2022-02-23 17:28 | disposition home or self-care (01) ==
PROVIDERS: Emergency Medicine; Emergency Provider Emergency Medicine Emergency Medical Services; PCP Internal Medicine Geriatric Medicine
DX: R07.89 Other chest pain (principal); R42 Dizziness and giddiness; R06.02 Shortness of breath; Z79.899 Other long term (current) drug therapy; Z79.82 Long term (current) use of aspirin; Z20.822 Contact with and (suspected) exposure to COVID-19
CPT/HCPCS: 36415; 71045; 71275; 78580; 80048; 80076; 82803; 83690; 83735; 83880; 84484; 85025; 85379; 85610; 87635; 93005; 94640; 99284; A9540; Q9967

== ENCOUNTER 2022-03-20 17:00 | Emergency (ER) | payer MEDICARE, MEDICAID, SELFPAY ==
--- NOTE | ~2022-03-20 | XR_ITS ---
EXAMINATION: XR KNEE, LEFT CLINICAL INFORMATION: Left knee COMPARISON: Left knee 02/12/2022 TECHNIQUE: Four views of the left knee. FINDINGS: No fracture. No dislocation. Moderate to large volume suprapatellar joint effusion. Severe tricompartment degenerative joint disease. There is significant narrowing of the medial femoral tibial joint with large marginal bone spurs of the femur and tibia. Small spurs of the patellofemoral joint narrowing involving the patellofemoral joint. Compared to prior study 02/11/2022 there has not been substantial change. XR/XR knee LT 4V IMPRESSION: 1. No acute abnormality. 2. Joint effusion. 3. Marked degenerative joint disease of the knee.
--- NOTE | 2022-03-20 17:06 | ED_ITS ---
HPI - General Adult General Chief complaint: Extremity Injury, Lower Stated complaint: L KNEE PAIN, DENIES INJURY Time Seen by Provider: 03/20/22 17:06 Source: patient, EMS and marketing mgr Mode of arrival: EMS Limitations: language barrier History of Present Illness HPI narrative: Patient is a 66 year old female presenting to the emergency department today with left knee pain. Patient states that for the last 2 days, her left knee has been hurting a lot. Patient states that she is very unbalanced and usually uses a walker to get around but now she can't even bear weight on the left leg at all. Patient denies any dizziness, lightheadedness, abdominal pain, nausea, vomiting, fever, chills, blurry vision, double vision, loss of vision, chest pain, difficulty breathing, shortness of breath, back pain, night sweats, pain with urination, increased urinary frequency, increased urinary urgency, blood in her urine or stool, syncope or a near syncopal episode, recent trauma or falls, bowel incontinence, bladder incontinence, bowel retention, bladder retention, or any other complaints at this time. Onset (ago): day(s) (2) Location: left and lower extremity Radiation: non-radiation Severity: moderate Severity scale (1-10): 5 Quality: sharp Pain Consistency: constant Relieving factors: none Exacerbating factors: none and movement Associated symptoms: denies other symptoms Treatments prior to arrival: none Related Data Home Medications Medication Instructions Recorded Confirmed aspirin 81 mg tablet,delayed 81 mg PO DAILY 08/18/20 02/13/22 release fluticasone propionate 220 1 puff inhalation BID 08/18/20 02/13/22 mcg/actuation HFA aerosol inhaler (Flovent HFA) montelukast 10 mg tablet 10 mg PO BEDTIME 08/18/20 02/13/22 pravastatin 20 mg tablet 20 mg PO BEDTIME 10/10/20 02/13/22 folic acid 1 mg tablet 1 tab PO DAILY 02/04/21 02/13/22 sennosides 8.6 mg tablet (senna) 1 tab PO BID PRN constipation 02/04/21 02/13/22 thiamine HCl (vitamin B1) 100 mg 1 tab PO DAILY 02/04/21 02/13/22 tablet quetiapine 25 mg tablet 1 tab PO BID 07/05/21 02/13/22 ipratropium 0.5 mg-albuterol 3 mg 1 amp inhalation Q4H PRN Wheezing 11/24/21 02/13/22 (2.5 mg base)/3 mL nebulization soln albuterol sulfate 90 mcg/actuation 2 inh inhalation Q6H PRN Shortness 12/20/21 02/13/22 aerosol inhaler (Ventolin HFA) Of Breath acetaminophen 650 mg 1 tab PO BID PRN pain 02/13/22 02/13/22 tablet,extended release baclofen 20 mg tablet 20 mg PO DAILY PRN Back Pain 02/13/22 02/13/22 clonazepam 1 mg tablet 0.5 mg PO BID PRN Anxiety 02/13/22 02/13/22 metoprolol succinate 25 mg 1 tab PO DAILY 02/13/22 02/13/22 tablet,extended release 24 hr ondansetron 4 mg disintegrating 4 mg PO Q12H PRN Nausea And 02/13/22 02/13/22 tablet Vomiting Previous Rx's Medication Instructions Recorded furosemide 20 mg tablet (Lasix) 10 mg PO DAILY #30 tabs 05/10/21 omeprazole 40 mg capsule,delayed 40 mg PO DAILY@0630 30 days #30 05/10/21 release caps oseltamivir 75 mg capsule (Tamiflu) 75 mg PO BID 5 days #10 caps 02/13/22 Allergies Allergy/AdvReac Type Severity Reaction Status Date / Time advair Allergy Unknown Unknown Uncoded 11/24/21 17:31 paxil Allergy Unknown Unknown Uncoded 11/24/21 17:31 From PAXIL AdvReac Intermediate NAUSEA & Uncoded 11/24/21 17:31 VOMITING Review of Systems Constitutional: Constitutional: Reports no additional constitutional complaints, Denies chills, Denies fever(s) and Denies night sweats Eyes: Eyes: Reports no additional eye complaints, Denies blurry vision, Denies change in vision, Denies diplopia, Denies eye discharge, Denies loss of vision and Denies eye pain ENT: Denies dizziness Cardiovascular: Cardiovascular: Reports no additional cardiovascular complaints, Denies chest pain, Denies lightheadedness, Denies Loss of Consciousness and Denies dyspnea Respiratory: Respiratory: Reports no additional respiratory complaints and Denies dyspnea Gastrointestinal: Gastrointestinal: Reports no additional gastrointestinal complaints, Denies abdominal pain, Denies melena, Denies hematochezia, Denies change in bowel habits and Denies change in stool character Genitourinary: Genitourinary: Denies hematuria, Denies urinary frequency, Denies dysuria, Denies urinary incontinence, Denies urinary hesitancy and Denies urinary urgency Musculoskeletal: Musculoskeletal: Reports no additional musculoskeletal complaints, Denies numbness and Denies tingling Comments: left knee pain Neurologic: Denies dizziness, Denies loss of vision, Denies numbness and Denies tingling Psychiatric: Psychiatric: Reports no additional psychiatric complaints Endocrine: Endocrine: Reports no additional endocrine complaints Hematologic/Lymphatic: Hematologic/Lymphatic: Reports no additional hematologic/lymphatic complaints Allergic/Immunologic: Allergic/Immunologic: Reports no additional allergic/immunologic complaints PMFSH Past Medical History Attestation statement: The following information was validated with the patient. Source: old records reviewed Medical History Acute hyponatremia Alcohol use disorder Bipolar 1 disorder Bipolar I disorder Chronic hyponatremia Congestive heart failure COPD (chronic obstructive pulmonary disease) Coronary artery disease Dementia Diabetes Hypertension Korsakoff disease Osteoarthritis Schizophrenia Sleep apnea Surgical History Hx of appendectomy Social History Social History Household Members: Spouse Housing: Apartment Do you presently have visiting nurse or other home services: Yes Unable to assess alcohol history related to: Unknown Alcohol intake: never Patient Tobacco Use Status: Current everyday Tobacco user Tobacco use type: Cigarette Cigarettes Per Day: 5 Years Smoked: 52 e-Cigarette/Vaping Use: Currently Using Second Hand Smoke Exposure: Yes Substance Use Type: Marijuana Advance Directives: Yes Advance Directives on File: Yes Advance Directives Date on File: 10/10/20 service: No Current occupational status: unemployed, disabled and other Physical Exam ED Vital Signs: Vital Signs - 24 hr 03/20/22 17:10 Temperature 98.2 F Pulse Rate 81 Respiratory Rate 18 Blood Pressure 132/63 Pulse Oximetry 99 Oxygen Delivery Method Room Air BMI result Body Mass Index 30.7 Const General: cooperative, no acute distress, alert and awake Nutritional Appearance: well nourished Orientation/consciousness: patient oriented x3 Limitations: no limitations HENMT Head: Yes normal to inspection and Yes atraumatic Ears: hearing grossly normal bilaterally and external ears normal General nose exam: Normal external nose present, no nasal discharge noted and no epistaxis Face and sinus: Yes normal facial exam, No abrasion and No laceration Mouth: Normal oral and palatal mucosa present, no drooling and no muffled voice Eyes General: appearance normal, both eyes and all related structures Periorbital: periorbital findings normal Eyelids: Yes eyelids normal Conjunctivae: conjunctivae normal Pupils: Equal, round and reactive pupils present EOM: EOMs intact bilaterally Neck Neck: Yes normal visual inspection, Yes full ROM and Yes no lymphadenopathy Chest Chest palpation & inspection: normal inspection of the chest Resp Effort & Inspection: normal respiratory effort and able to speak in complete sentences Auscultation: clear to auscultation bilaterally Cardio Rate: regular rate Rhythm: regular rhythm GI Inspection: Yes normal to inspection Neuro General: patient oriented x3 and moves all extremities Cranial nerves: Yes Equal, round and reactive pupils present Cognition (Neuro): normal cognition Motor exam (neuro): 5/5 motor strength present throughout Sensory Exam: Normal double simultaneous stimulation for sensation Coordination: [id number] test normal Extrem Other: pain to palpation of the posterior left knee, effusion present to the anterior left knee General: Yes capillary refill normal Psych Appearance: grossly normal Mental Status: mental status grossly normal Affect: normal affect Attitude: cooperative Thought process: Normal thought process present Thought content: Normal thought content present Insight: Good insight present (Psych) Medical Decision Making [facility] Narrative Medical decision making narrative: Patient is a 66 year old female presenting to the emergency department today with left knee pain. Patient's physical exam showed a small effusion to the left knee with pain upon palpation to the posterior left knee but was otherwise unremarkable. Patient's blood work showed hyponatremia at 127 and an elevated CR P but no white blood cell elevation. Patient is not septic and I have no concern for sepsis. Patient does not have a septic joint. Patient's left knee x-ray showed no acute process. I explained my physical exam findings as well as all test results to the patient. I answered all questions asked by the patient. NS at maintanence rate ordered for sodium correction. Patient to be evaluated by PT for short term rehab placement as she is not safe to go home at this time. Differential Diagnosis Differential Diagnosis: left knee injury, unsteady gait, hyponatremia Medical Records Medical records reviewed: Yes I reviewed the patient's medical records. Lab Data Lab results reviewed: Yes I reviewed the patient's lab results. Result diagrams: 03/20/22 17:49 03/20/22 17:49 Labs: Lab Results 03/20/22 03/20/22 03/20/22 Range/Units 17:49 17:49 17:49 WBC 7.6 (4.8-10.8) X10*3/uL RBC 3.10 L (4.20-5.50) X10*6/uL Hgb 9.0 L (12.0-16.0) g/dl Hct 26.7 L (37.0-47.0) % MCV 86.1 (80.0-98.0) fL MCH 29.0 (27.0-33.0) pg MCHC 33.7 (31.0-35.0) g/dl RDW 15.3 (11.0-16.0) % Plt Count 264 D (160-400) X10*3/uL MPV 8.3 L (9.4-12.3) fL Immature Gran % (Auto) 0.7 H (0.0-0.4) % Neut % (Auto) 61.2 (45-73) % Lymph % (Auto) 26.2 (20-40) % Dickinson % (Auto) 10.2 (2-11) % Eos % (Auto) 1.6 (0-4) % Baso % (Auto) 0.1 (0-2) % Lymph # (Auto) 2.0 (1.2-4.9) X10*3/uL Dickinson # (Auto) 0.8 (0.1-1.2) X10*3/uL Eos # (Auto) 0.1 (0.0-0.4) X10*3/uL Baso # (Auto) 0.0 (0.0-0.2) X10*3/uL Abs Immat Gran (auto) 0.05 H (0.00-0.03) X10*3/uL Absolute Neuts (auto) 4.6 (2.0-8.3) x10*3/uL Absolute Nucleated RBC 0.000 (0.0-0.012) X10*3/uL Nucleated RBC % (auto) 0.0 (0.0-0.2) /100WBC ESR 75 H (0-20) MM/HR Sodium 127 L (135-145) mmol/L Potassium 4.7 (3.3-5.1) mmol/L Chloride 95 L (96-108) mmol/L Carbon Dioxide 24 (22-29) mmol/L Anion Gap 13 (12-20) BUN 36 H (9-16) mg/dL Creatinine 1.11 (0.5-1.4) mg/dL Estim Creat Clear Calc 48.2 Estimated GFR 49 Random Glucose 90 (60-115) mg/dL Calcium 8.5 D (8.4-10.2) mg/dL Total Bilirubin 0.2 (0.0-1.0) mg/dL AST 11 (5-31) U/L ALT 6 (0-31) U/L Alkaline Phosphatase 110 (39-117) U/L C-Reactive Protein 3.36 H (< or = 0.50) mg/dL Total Protein 6.3 L (6.5-8.0) g/dL Albumin 3.2 L (3.5-5.0) g/dL Imaging Data Left knee x-ray: Attestation: I personally reviewed and interpreted this imaging study as follows: My impression: No acute process. Radiologist's impression: EXAMINATION: XR KNEE, LEFT CLINICAL INFORMATION: Left knee? COMPARISON: Left knee 02/12/2022? TECHNIQUE: Four views of the left knee. FINDINGS: No fracture. No dislocation. Moderate to large volume suprapatellar joint effusion. Severe tricompartment degenerative joint disease. There is significant narrowing of the medial femoral tibial joint with large marginal bone spurs of the femur and tibia. Small spurs of the patellofemoral joint narrowing involving the patellofemoral joint. Compared to prior study 02/11/2022 there has not been substantial change.? XR/XR knee LT 4V IMPRESSION: ? 1. No acute abnormality. 2. Joint effusion. 3. Marked degenerative joint disease of the knee. ? Dictated By: Alfred Gonzalez MD Signed By: Electronically signed by Alfred Gonzalez MD 03/20/22 0123 Discharge Plan Discharge Clinical Impression: Acute hyponatremia, Acute knee pain, Unsteady gait Patient Disposition: Still a Patient Prescriptions: No [facility] aspirin 81 mg tablet,delayed release (DR/EC) 81 mg PO DAILY montelukast 10 mg tablet 10 mg PO BEDTIME Flovent HFA 220 mcg/actuation HFA aerosol inhaler 1 puff inhalation BID pravastatin 20 mg Tablet 20 mg PO BEDTIME omeprazole 40 mg Capsule,Delayed Release(Dr/Ec) 40 mg PO DAILY@0630 30 Days Qty: 30 0RF furosemide [Lasix] 20 mg tablet 10 mg PO DAILY Qty: 30 0RF sennosides [senna] 8.6 mg tablet 1 tab PO BID PRN (Reason: constipation) thiamine HCl (vitamin B1) 100 mg tablet 1 tab PO DAILY folic acid 1 mg tablet 1 tab PO DAILY quetiapine 25 mg tablet 1 tab PO BID ipratropium-albuterol 0.5 mg-3 mg(2.5 mg base)/3 mL solution for nebulization 1 amp inhalation Q4H PRN (Reason: Wheezing) albuterol sulfate [Ventolin HFA] 90 mcg/actuation HFA aerosol inhaler 2 inh inhalation Q6H PRN (Reason: Shortness Of Breath) oseltamivir [Tamiflu] 75 mg capsule 75 mg PO BID 5 Days Qty: 10 0RF acetaminophen 650 mg tablet extended release 1 tab PO BID PRN (Reason: pain) metoprolol succinate 25 mg tablet extended release 24 hr 1 tab PO DAILY clonazepam 1 mg Tablet 0.5 mg PO BID PRN (Reason: Anxiety) baclofen 20 mg Tablet 20 mg PO DAILY PRN (Reason: Back Pain) ondansetron 4 mg Tablet,Disintegrating 4 mg PO Q12H PRN (Reason: Nausea And Vomiting)
[2022-03-20 17:09] VITALS: BP 124/60; PULSE 87; O2SAT 97
[2022-03-20 17:10] VITALS: BP 132/63; PULSE 81; RESP 18; TEMP 36.8; O2SAT 99; BMI 30.7
[2022-03-20 17:54] LABS: MANUAL DIFF FLAG NO
[2022-03-20 17:58] LABS: Basophils Percent Auto 0.1 % (0-2); Eosinophils Absolute Auto 0.1 X10*3/uL (0.0-0.4); Eosinophils Percent Auto 1.6 % (0-4); Hematocrit 26.7 % (37.0-47.0); Imm Gran Abs Auto 0.05 X10*3/uL (0.00-0.03); Imm Gran Pct Auto 0.7 % (0.0-0.4); Lymphocytes Percent Auto 26.2 % (20-40); Mean Corpuscular HGB Conc 33.7 g/dl (31.0-35.0); Mean Corpuscular Volume 86.1 fL (80.0-98.0); Mean Platelet Volume 8.3 fL (9.4-12.3); Monocytes Absolute Auto 0.8 X10*3/uL (0.1-1.2); Monocytes Percent Auto 10.2 % (2-11); Neutrophils Absolute Auto 4.6 x10*3/uL (2.0-8.3); Neutrophils Percent Auto 61.2 % (45-73); Platelet Count 264 X10*3/uL (160-400); Red Cell Distribution Width 15.3 % (11.0-16.0); White Blood Count 7.6 X10*3/uL (4.8-10.8)
[2022-03-20] MEDS: Ketorolac Tromethamine 15 MG/ML VIAL IM (18:03)
[2022-03-20 18:18] LABS: Alanine Aminotransferase 6 U/L (0-31); Albumin Level 3.2 g/dL (3.5-5.0); Alkaline Phosphatase 110 U/L (39-117); Anion Gap 13 (12-20); Aspartate Amino Transferase 11 U/L (5-31); Bilirubin Total 0.2 mg/dL (0.0-1.0); Blood Urea Nitrogen 36 mg/dL (9-16); C Reactive Protein 3.36 mg/dL (< or = 0.50); Calcium 8.5 mg/dL (8.4-10.2); Carbon Dioxide 24 mmol/L (22-29); Chloride 95 mmol/L (96-108); Creatinine Clr Calc Pharmacy 48.2; Estimated Glomerular Filt Rate 49; Glucose Random 90 mg/dL (60-115); Potassium 4.7 mmol/L (3.3-5.1); Sodium 127 mmol/L (135-145); Total Protein 6.3 g/dL (6.5-8.0)
[2022-03-20 18:40] LABS: Erythrocyte Sedimentation Rate 75 MM/HR (0-20)
[2022-03-20] MEDS: 0.9 % Sodium Chloride 1,000 ML 125 ML IVCONT (19:34)
[2022-03-20 20:04] VITALS: BP 141/60; PULSE 79; RESP 20; TEMP 36.4; O2SAT 96
[2022-03-20 21:07] LABS: COVID-19 Test Negative (Negative)
--- NOTE | 2022-03-20 22:35 | MHC.CM.ED ---
Pt is well known to CM. Recently admitted 02/16 and d/c to [facility]. Pt has had 5 ED visits in January. Was admitted to [facility] 11/24, 12/20 and 02/16. Moderna x2 02/03/21, 09/30/21. HCP invoked life-long for Korsakoff's Dementia. HCP/partner Juanjo Brownquez ([phone]). Pt lives with Juanjo. Uses walker/WC. Per Juanjo, he has no help at home. Per EMR on 02/16, pt was involved with [facility] and [facility]. Juanjo tells CM he cannot care for pt at this time as he broke in ankle in an accident and had surgery at [facility]. Juanjo feels that pt needs physical therapy, as she cannot walk at home. PT evaluation pending. Juanjo requests STR at local facilities. Referrals placed locally. CM to follow for d/c needs.
[2022-03-21] VITALS (7 sets, daily range): BP systolic 135–155; BP diastolic 58–87; PULSE 71–99; RESP 16–20; TEMP 36.6; O2SAT 93–98
[2022-03-21] MEDS: Albuterol/Iprat 2.5/0.5MG 3 ML AMPUL.NEB INHALE (00:04)
[2022-03-21 00:06] LABS: Alanine Aminotransferase 7 U/L (0-31); Albumin Level 3.3 g/dL (3.5-5.0); Alkaline Phosphatase 108 U/L (39-117); Anion Gap 12 (12-20); Aspartate Amino Transferase 13 U/L (5-31); Bilirubin Total 0.4 mg/dL (0.0-1.0); Blood Urea Nitrogen 37 mg/dL (9-16); Calcium 8.7 mg/dL (8.4-10.2); Carbon Dioxide 25 mmol/L (22-29); Chloride 97 mmol/L (96-108); Estimated Glomerular Filt Rate 51; Glucose Random 118 mg/dL (60-115); Sodium 129 mmol/L (135-145); Total Protein 6.4 g/dL (6.5-8.0)
--- NOTE | 2022-03-21 01:27 | PC.NURSE ---
PATIENT WAS INC OF URINE ,CARE GIVEN LINEN CHANGE ,PER WICK IN PLACE ,WARM BLANKET GIVEN .
--- NOTE | 2022-03-21 02:13 | PC.NURSE ---
pt provided perineal care & linen change, purewick placed. pt requesting pain medication, MD aware.
[2022-03-21] MEDS: Acetaminophen 325 MG TABLET 975 MG PO (02:27)
[2022-03-21] MEDS: 0.9 % Sodium Chloride 1,000 ML 125 ML IVCONT (03:53)
--- NOTE | 2022-03-21 06:31 | PC.NURSE ---
pt provided perineal care & linen change
--- NOTE | 2022-03-21 08:30 | PHA.MEDREC ---
Pharmacy Consult ? Medication Reconciliation Pharmacy has completed the medication reconciliation.
--- NOTE | 2022-03-21 08:59 | PC.NURSE ---
completed med rec on pt, request for pharmacy to overview
[2022-03-21] MEDS: Folic Acid 1 MG TABLET PO (09:50)
[2022-03-21] MEDS: Thiamine HCL 100 MG TABLET PO (09:50)
[2022-03-21] MEDS: Furosemide 20 MG TABLET 10 MG PO (09:50)
[2022-03-21] MEDS: Metoprolol Succinate ER 25 MG TAB.ER.24H PO (09:50)
--- NOTE | 2022-03-21 09:58 | PC.NURSE ---
pt requesing repeat updrft/inhaler. call placed to respiratory
[2022-03-21] MEDS: Albuterol Sulfate 90 MCG 8 GM INHALER 2 PUFF INHALE (10:06)
--- NOTE | 2022-03-21 10:24 | PC.NURSE ---
pt reports she wants to go home. pt called significant other to pick her up, Juanjo, who called t/w regarding the plan of care. Juanjo phone number
--- NOTE | 2022-03-21 10:38 | PC.NURSE ---
spoke with pt with [facility] hourly sign language interpreter to verify pts needs/wants, pt wants to go home although PT tania wanted pt to go to [facility]. explained this to pt and risks of going homee, she insists on leaving and going home. CM and made aware
--- NOTE | 2022-03-21 14:41 | MHC.CM.PN ---
NO BED OFFERS OF THIS NOTE. CASE MANAGEMENT CONTINUING TO PROVIDE UPDATES VIA [employer]SCR[employer]TS IN EFFORTS TO SECURE A BED PATIENT STILL REFUSING TO GO TO REHAB HCP IS INVOKED FROM A [facility] PHYSICIAN BUT PATIENT IS ANSWERING QUESTIONS APPROPRIATELY.
--- NOTE | 2022-03-21 17:42 | PC.NURSE ---
PATIENT WAS INC OF BOWEL MOVEMENT AND URINE ,BED BATH GIVEN ,BEDDING CHANGE ,PATIENT NOT WATCHING TELEVISION .
--- NOTE | 2022-03-21 18:45 | PC.NURSE ---
pt awaiting psych eval at this time for competency as pts health care proxy was invoke by visiting nurse and pt apepars A&O, able to make her own decisions. CM aware of plan and working with provider and RN
--- NOTE | 2022-03-21 18:59 | PC.NURSE ---
PATIENT IS VERY UNCOOPERATIVE WITH STAFF ,PER WIJEREMY WAS IN PLACE PATIENT REMOVE IT TROW IT OM FLOOR THEN URINATED ON BED ANT THEN CALLED FOR HELP .
--- NOTE | 2022-03-21 19:30 | PC.NURSE ---
inconient care ,given perwick place again ,patient was set up at bedside with dinner ,did not like what was given to her so she ask foe a ham sandwich and a rosanne sandwick .
[2022-03-22] MEDS: Aspirin Enteric Coated 81 MG TABLET.DR PO ×2 (00:14→20:36)
[2022-03-22] MEDS: Pravastatin Sodium 20 MG TABLET PO ×2 (00:14→20:36)
--- NOTE | 2022-03-22 01:17 | PC.NURSE ---
RN to bedside to answer call jones. The pt is requesting pill for sleep , upon MAR review there was no sleep and/or prn sleep medication available. RN reviewed the pt's home medication list and was able to confirm previous Clonazepam 1mg prescription last filled 2020. Information relayed to Dr Caldwell and requested new ordres.
[2022-03-22] MEDS: clonazePAM 1 MG TABLET PO (01:58)
[2022-03-22 06:10] VITALS: BP 151/66; PULSE 72; RESP 20; O2SAT 99
[2022-03-22] MEDS: Furosemide 20 MG TABLET 10 MG PO (08:37)
[2022-03-22] MEDS: Omeprazole 40 MG CAPSULE.DR PO (08:37)
[2022-03-22] MEDS: Folic Acid 1 MG TABLET PO (08:38)
[2022-03-22] MEDS: Thiamine HCL 100 MG TABLET PO (08:38)
[2022-03-22] MEDS: Metoprolol Succinate ER 25 MG TAB.ER.24H PO (08:38)
[2022-03-22] MEDS: Acetaminophen 325 MG TABLET 650 MG PO ×2 (08:39→20:34)
--- NOTE | 2022-03-22 14:06 | MHC.CM.ED ---
Patient remains in ER. HCP is invoked. Patient received 2 Moderna vaccines. Referral has been broadcasted within 20 miles. The following facilities are still following patient: Anthony Rao [facility], [facility], and [facility]. Continue to monitor for d/c needs.
--- NOTE | 2022-03-22 14:59 | PC.NURSE ---
pt calling staff, feels sob, sitting upright sat 97% on ra. has present cough, ls tight, very slight wheeze noted in all lung pedro. resp tx called for prn neb.
[2022-03-22] MEDS: Albuterol/Iprat 2.5/0.5MG 3 ML AMPUL.NEB INHALE (15:06)
[2022-03-22 15:07] VITALS: PULSE 75; RESP 18; O2SAT 98
[2022-03-22] MEDS: Sennosides 8.6 MG TABLET PO (20:34)
[2022-03-23] VITALS (10 sets, daily range): BP systolic 124–157; BP diastolic 50–84; PULSE 69–89; RESP 15–20; TEMP 36.6–36.9; O2SAT 95–100
[2022-03-23] MEDS: Albuterol/Iprat 2.5/0.5MG 3 ML AMPUL.NEB INHALE ×3 (00:36→19:54)
[2022-03-23] MEDS: Omeprazole 40 MG CAPSULE.DR PO (06:58)
[2022-03-23] MEDS: Thiamine HCL 100 MG TABLET PO (08:01)
[2022-03-23] MEDS: Furosemide 20 MG TABLET 10 MG PO (08:01)
[2022-03-23] MEDS: Folic Acid 1 MG TABLET PO (08:02)
[2022-03-23] MEDS: Metoprolol Succinate ER 25 MG TAB.ER.24H PO (08:02)
--- NOTE | 2022-03-23 08:12 | PC.NURSE ---
A/O X 4 NO SOB/KLAUS NOTED LUNGS EXP WHEEZING ALL LOBES. PT SPEAKS IN FULL SENTENCES. INCONTINENT OF URINE. EATING BREAKFAST. PT STATES THAT SHE WANTS TO BE DISCHARGED HOME BECAUSE HER IS SICK AND NEEDS HELP AT HOME. MD MROAN.
[2022-03-23] MEDS: Fluticasone Propionate 250 MCG BLST.W.DEV 1 PUFF INHALE ×2 (08:30→20:06)
--- NOTE | 2022-03-23 10:40 | PC.NURSE ---
pt 's spouse/significant other ([phone]) samantha jeffries called and was updated on pt status.
--- NOTE | 2022-03-23 11:13 | PC.NURSE ---
emory mosquera (case management, ) called and was updated on pt status.
--- NOTE | 2022-03-23 14:24 | PC.NURSE ---
OOB to chair today. Ate lunch. Continues to request discharge home but she is reminded of plan frequently.
--- NOTE | 2022-03-23 16:07 | MHC.CM.ED ---
16 michelle, [facility] remigio [facility] following. Needs [facility]. [facility] updated via phone and [facility]. Pt active with them for daily BH Medications. CM to follow for d/c needs.
--- NOTE | 2022-03-23 16:54 | PC.NURSE ---
PATIENT WAS INC OF URINE CARE GIVEN LINEN CHANGE ,PATIENT WAS UN COOPERATIVE TOWARDS STAFF SHE [facility]IR[facility] PERWICK ON ANOTHER PCT .
--- NOTE | 2022-03-23 17:51 | PC.NURSE ---
PATIENT WAS INC OF URINE ,CARE GIVEN BEDDING CHANGE .
--- NOTE | 2022-03-23 19:10 | PC.NURSE ---
Addendum entered by Eileen Christianson 03/24/22 07:09: report given to REAGAN Sanchez Original Note: report received from REAGAN Romero
[2022-03-23] MEDS: Aspirin Enteric Coated 81 MG TABLET.DR PO (20:28)
[2022-03-23] MEDS: Pravastatin Sodium 20 MG TABLET PO (20:28)
[2022-03-23] MEDS: diphenhydrAMINE HCL 25 MG TABLET PO (23:12)
[2022-03-23] MEDS: LORazepam 1 MG TABLET PO (23:12)
[2022-03-24 06:00] VITALS: BP 131/80; PULSE 98; RESP 16; TEMP 36.2; O2SAT 98
[2022-03-24] MEDS: Omeprazole 40 MG CAPSULE.DR PO (06:10)
[2022-03-24] MEDS: Albuterol/Iprat 2.5/0.5MG 3 ML AMPUL.NEB INHALE ×2 (06:18→09:36)
[2022-03-24] MEDS: Fluticasone Propionate 250 MCG BLST.W.DEV 1 PUFF INHALE (08:00)
[2022-03-24 08:01] VITALS: PULSE 76; RESP 18; O2SAT 98
[2022-03-24 09:37] VITALS: PULSE 68; RESP 16; O2SAT 100
[2022-03-24 10:07] LABS: COVID-19 Test Negative (Negative)
--- NOTE | 2022-03-24 10:38 | MHC.CM.ED ---
Patient remains in ER. [facility] is able to offer a bed. Received telephone call from patient's sig other/HCP, Juanjo. He is requesting patient be sent home. He states he will be able to care for her. [facility] made aware. [facility] booked for 1130am. Emily from [facility] made aware. Patient, Laura KIKR and Dr Mildred crenshaw. Continue to monitor for d/c needs.
[2022-03-24 11:38] VITALS: BP 140/78; PULSE 69; RESP 16; O2SAT 96
[2022-03-24] MEDS: Furosemide 20 MG TABLET 10 MG PO (11:39)
[2022-03-24] MEDS: Folic Acid 1 MG TABLET PO (11:39)
[2022-03-24] MEDS: Thiamine HCL 100 MG TABLET PO (11:40)
[2022-03-24] MEDS: Metoprolol Succinate ER 25 MG TAB.ER.24H PO (11:40)
== END 2022-03-24 12:30 | disposition home or self-care (01) ==
PROVIDERS: Nurse Practitioner Family; Physician Assistant Medical; Emergency Provider Emergency Medicine Emergency Medical Services; PCP Internal Medicine Geriatric Medicine
DX: E87.1 Hypo-osmolality and hyponatremia (principal); M25.562 Pain in left knee; M25.561 Pain in right knee; R26.81 Unsteadiness on feet; D64.9 Anemia, unspecified; F17.210 Nicotine dependence, cigarettes, uncomplicated; Z20.822 Contact with and (suspected) exposure to COVID-19; Z71.6 Tobacco abuse counseling; Z79.899 Other long term (current) drug therapy
CPT/HCPCS: 36415; 73564; 80053; 85025; 85652; 86140; 87635; 94640; 96360; 96372; 97162; 99285; J1885; Q0163

== ENCOUNTER 2022-03-29 01:10 | Emergency (ER) | payer MEDICARE, MEDICAID, SELFPAY ==
--- NOTE | ~2022-03-29 | XR_ITS ---
EXAMINATION: XR KNEE, RIGHT CLINICAL INFORMATION: Knee pain COMPARISON: 07/06/2021 TECHNIQUE: Four views of the right knee. FINDINGS: No acute fracture or subluxation. Severe medial compartment joint space narrowing. Large tricompartmental marginal osteophytes. Moderate joint effusion. XR/XR knee RT 4V IMPRESSION: No acute abnormality. Severe tricompartmental degenerative changes. Moderate joint effusion.
[2022-03-29 01:21] VITALS: BP 147/111; PULSE 78; RESP 22; TEMP 36.6; O2SAT 100; BMI 31.8
--- NOTE | 2022-03-29 04:38 | ED_ITS ---
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 Pain in the joint which is chronic but for the past 2 days been having severe right knee pain there was no trauma or falling on the right knee. No fever chills. Patient still able to ambulate. Related Data Home Medications Medication Instructions Recorded Confirmed sennosides 8.6 mg tablet (senna) 1 tab PO BID PRN constipation 02/04/21 03/21/22 ipratropium 0.5 mg-albuterol 3 mg 1 amp inhalation Q4H PRN Wheezing 11/24/21 03/21/22 (2.5 mg base)/3 mL nebulization soln acetaminophen 650 mg 1 tab PO BID PRN pain 03/21/22 03/21/22 tablet,extended release albuterol sulfate 90 mcg/actuation 2 puff inhalation Q4-6H PRN 03/21/22 03/21/22 aerosol inhaler Shortness Of Breath aspirin 81 mg tablet,delayed 1 tab PO QPM 03/21/22 03/21/22 release fluticasone propionate 220 1 puff PO BID 03/21/22 03/21/22 mcg/actuation HFA aerosol inhaler (Flovent HFA) folic acid 1 mg tablet 1 tab PO QAM 03/21/22 03/21/22 furosemide 20 mg tablet 0.5 tab PO DAILY 03/21/22 03/21/22 metoprolol succinate 25 mg 1 tab PO QAM 03/21/22 03/21/22 tablet,extended release 24 hr omeprazole 40 mg capsule,delayed 1 cap PO QAM 03/21/22 03/21/22 release pravastatin 20 mg tablet 1 tab PO QPM 03/21/22 03/21/22 quetiapine 25 mg tablet 1 tab PO 03/21/22 thiamine HCl (vitamin B1) 100 mg 1 tab PO QAM 03/21/22 03/21/22 tablet Previous Rx's Medication Instructions Recorded albuterol sulfate 2.5 mg (3 mL) inhalation Q4-6H PRN 03/24/22 bronchospasm #75 mL albuterol sulfate 90 mcg/actuation 2 puff inhalation QID PRN 03/24/22 aerosol inhaler shortness of breath or wheezing #6.7 grams ibuprofen 600 mg tablet 600 mg PO Q8H PRN pain #10 tabs 03/29/22 Allergies Allergy/AdvReac Type Severity Reaction Status Date / Time advair Allergy Unknown Unknown Uncoded 03/29/22 01:21 From PAXIL AdvReac Intermediate NAUSEA & Uncoded 03/29/22 01:21 VOMITING Review of Systems Review of Systems: All other systems are reviewed and are negative Constitutional: Reports as per HPI and Reports no additional constitutional complaints Eyes: Reports as per HPI and Reports no additional eye complaints Reports system reviewed and no additional complaints, except as documented Cardiovascular: Reports as per HPI and Reports no additional cardiovascular complaints Respiratory: Reports as per HPI and Reports no additional respiratory complaints Gastrointestinal: Reports as per HPI and Reports no additional gastrointestinal complaints Genitourinary: Reports no additional female genitourinary complaints Musculoskeletal: Reports no additional musculoskeletal complaints Skin/Breast: Reports system reviewed and no additional complaints, except as docu Psychiatric: Reports no additional psychiatric complaints Endocrine: Reports no additional endocrine complaints Hematologic/Lymphatic: Reports no additional hematologic/lymphatic complaints Allergic/Immunologic: Reports no additional allergic/immunologic complaints Reports system reviewed and no additional complaints, except as documented and Reports Abnormal speech present [facility] Past Medical History Medical History Acute hyponatremia Alcohol use disorder Bipolar 1 disorder Bipolar I disorder Chronic hyponatremia Congestive heart failure COPD (chronic obstructive pulmonary disease) Coronary artery disease Dementia Diabetes Hypertension Korsakoff disease Osteoarthritis Schizophrenia Sleep apnea Surgical History Hx of appendectomy Social History Social History Household Members: Spouse Housing: Apartment Do you presently have visiting nurse or other home services: Yes Unable to assess alcohol history related to: Unknown Alcohol intake: never Patient Tobacco Use Status: Current everyday Tobacco user Tobacco use type: Cigarette Cigarettes Per Day: 5 Years Smoked: 52 e-Cigarette/Vaping Use: Currently Using Second Hand Smoke Exposure: Yes Substance Use Type: Marijuana Advance Directives: Yes Advance Directives on File: Yes Advance Directives Date on File: 10/10/20 service: No Current occupational status: unemployed, disabled and other Physical Exam Vital Signs: Vital Signs: Last Vital Signs Temp 97.9 F 03/29/22 01:21 Pulse 78 03/29/22 01:21 Resp 22 H 03/29/22 01:21 BP 147/111 H 03/29/22 01:21 Pulse Ox 100 03/29/22 01:21 O2 Del Method 03/29/22 01:21 BMI result Body Mass Index 31.8 Vital signs have been reviewed as appeared to be correct. Blood pressure elevated. Heart rate normal. Respiration rate normal. Temperature normal. Oxygen saturation normal. Appearance: Alert. Oriented X3. No acute distress. Head: Normal external exam. Normocephalic. Atraumatic. No Jones signs noted. No raccoon eyes noted Eyes: PERRLA. EOMI. Conjunctiva and sclera normal. Eyelids normal. ENT: TM's Normal. Pharynx normal. Uvula midline. Moist mucous membranes. No trismus noted. No drooling noted. No muffled voice noted. Neck: Normal inspection. Neck supple. FROM. No adenopathy. Thyroid Normal. No meningeal signs. No neck mass noted. CVS: Normal heart rate and rhythm. Heart sound normal. No murmurs noted. Pulses normal throughout. Respiratory: No respiratory distress. Painless inspiration. Breath sounds normal. No wheezes/rales/rhonchi noted. Chest nontender. No accessory muscle usage noted or decreased air movement noted. Abdomen: Soft and nontender. Bowel sounds normal in all 4 quadrants. No distention noted. No organomegaly noted. No visible injury noted. Back: No CVA tenderness. Full range of motion noted. Skin: Skin warm and dry. Normal skin color. Normal skin turgor. No rashes/lesions/lacerations noted. Extremities: Left knee with small effusion, no deformity, no step-off, stable ligamentous exam. Neuro: Oriented X 3. Cranial nerve exam: II-XII are grossly intact No motor deficit. No sensory deficit. Reflexes normal. Course Course Course Narrative: Assessment and plan 66-year-old female with acute on chronic right knee pain, exam showed mild effusion, septic arthritis is extremely unlikely in this case, patient's feel better with oxycodone well discharged to follow-up with ortho. MDM - Extremity Injury (Lower) Imaging Data Right knee x-ray: Attestation: I personally reviewed and interpreted this imaging study as follows: Radiologist's impression: No acute abnormality. Severe tricompartmental degenerative changes. Moderate joint effusion. ? Discharge Plan Discharge Clinical Impression: Acute knee pain Patient Disposition: Home, Self-Care Instructions: Knee Pain (ED), Arthralgia (ED) Prescriptions: New ibuprofen 600 mg tablet 600 mg PO Q8H PRN (Reason: pain) Qty: 10 0RF No Action sennosides [senna] 8.6 mg tablet 1 tab PO BID PRN (Reason: constipation) quetiapine 25 mg tablet 1 tab PO thiamine HCl (vitamin B1) 100 mg tablet 1 tab PO QAM omeprazole 40 mg capsule,delayed release(DR/EC) 1 cap PO QAM aspirin 81 mg tablet,delayed release (DR/EC) 1 tab PO QPM acetaminophen 650 mg tablet extended release 1 tab PO BID PRN (Reason: pain) folic acid 1 mg tablet 1 tab PO QAM fluticasone propionate [Flovent HFA] 220 mcg/actuation HFA aerosol inhaler 1 puff PO BID pravastatin 20 mg tablet 1 tab PO QPM furosemide 20 mg tablet 0.5 tab PO DAILY metoprolol succinate 25 mg tablet extended release 24 hr 1 tab PO QAM albuterol sulfate 90 mcg/actuation HFA aerosol inhaler 2 puff inhalation Q4-6H PRN (Reason: Shortness Of Breath) albuterol sulfate 90 mcg/actuation HFA aerosol inhaler 2 puff inhalation QID PRN (Reason: shortness of breath or wheezing) Qty: 6.7 0RF albuterol sulfate 2.5 mg /3 mL (0.083 %) solution for nebulization 2.5 mg inhalation Q4-6H PRN (Reason: bronchospasm) Qty: 75 0RF ipratropium-albuterol 0.5 mg-3 mg(2.5 mg base)/3 mL solution for nebulization 1 amp inhalation Q4H PRN (Reason: Wheezing) Referrals: Kong Braden MD [Physician] -
[2022-03-29] MEDS: oxyCODONE HCl Immed Release 5 MG TABLET PO (04:49)
== END 2022-03-29 05:41 | disposition home or self-care (01) ==
PROVIDERS: Emergency Provider Emergency Medicine; PCP Internal Medicine Geriatric Medicine
DX: M25.561 Pain in right knee (principal); Z79.899 Other long term (current) drug therapy; F17.210 Nicotine dependence, cigarettes, uncomplicated; Z71.6 Tobacco abuse counseling
CPT/HCPCS: 73564; 99283

== ENCOUNTER 2022-04-14 02:57 | Emergency (ER) | payer MEDICARE, MEDICAID, SELFPAY ==
[2022-04-14] VITALS (7 sets, daily range): BP systolic 127–153; BP diastolic 66–86; PULSE 83–102; RESP 16–22; TEMP 36–36.9; O2SAT 93–100; BMI 27.3
--- NOTE | ~2022-04-14 | XR_ITS ---
EXAMINATION: XR HAND, LEFT CLINICAL INFORMATION: Swelling and pain COMPARISON: None TECHNIQUE: PA, lateral, and oblique views of the left hand. FINDINGS: Osseous alignment is anatomic. No acute fracture is seen. Diffuse soft tissue swelling is noted. XR/XR hand LT 2V IMPRESSION: Soft tissue swelling without acute osseous findings.
--- NOTE | ~2022-04-14 | XR_ITS ---
EXAMINATION: XR CHEST CLINICAL INFORMATION: Shortness of breath COMPARISON: 02/23/2022 TECHNIQUE: Frontal view of the chest was obtained. FINDINGS: Lung volumes are symmetric. No focal consolidation is seen. No evidence of pneumothorax, pleural effusion, or pulmonary edema. The cardiomediastinal contour is unremarkable. Degenerative changes noted in the humeral heads. XR/XR chest 1V IMPRESSION: No acute cardiopulmonary findings.
--- NOTE | 2022-04-14 03:22 | ED.SOB ---
HPI - SOB/Dyspnea General Chief Complaint: Asthma Stated Complaint: asthma Time Seen by Provider: 04/14/22 03:11 Source: patient, EMS and conference interpreter Mode of arrival: EMS Limitations: no limitations History of Present Illness HPI Narrative: 66-year-old female with history of CHF, COPD ( use 2 L supplemental oxygen at home), DANO, CAD, dm, HTN, heavy cigarette and marijuana smoker. Was brought in by EMS for evaluation of difficulty breathing. presented with increased shortness of breath and difficulty breathing, patient used her bronchodilator nebulizer at home with no relief of her symptoms, symptoms started a day ago with progressive worsening. Decline chest pain or lower extremities abnormal swelling. patient's symptoms is similar to her previous presentation when she has COPD exacerbation. Related Data Home Medications Medication Instructions Recorded Confirmed sennosides 8.6 mg tablet (senna) 1 tab PO BID PRN constipation 02/04/21 03/21/22 ipratropium 0.5 mg-albuterol 3 mg 1 amp inhalation Q4H PRN Wheezing 11/24/21 03/21/22 (2.5 mg base)/3 mL nebulization soln acetaminophen 650 mg 1 tab PO BID PRN pain 03/21/22 03/21/22 tablet,extended release albuterol sulfate 90 mcg/actuation 2 puff inhalation Q4-6H PRN 03/21/22 03/21/22 aerosol inhaler Shortness Of Breath aspirin 81 mg tablet,delayed 1 tab PO QPM 03/21/22 03/21/22 release fluticasone propionate 220 1 puff PO BID 03/21/22 03/21/22 mcg/actuation HFA aerosol inhaler (Flovent HFA) folic acid 1 mg tablet 1 tab PO QAM 03/21/22 03/21/22 furosemide 20 mg tablet 0.5 tab PO DAILY 03/21/22 03/21/22 metoprolol succinate 25 mg 1 tab PO QAM 03/21/22 03/21/22 tablet,extended release 24 hr omeprazole 40 mg capsule,delayed 1 cap PO QAM 03/21/22 03/21/22 release pravastatin 20 mg tablet 1 tab PO QPM 03/21/22 03/21/22 quetiapine 25 mg tablet 1 tab PO 03/21/22 thiamine HCl (vitamin B1) 100 mg 1 tab PO QAM 03/21/22 03/21/22 tablet Previous Rx's Medication Instructions Recorded albuterol sulfate 2.5 mg/3 mL 2.5 mg (3 mL) inhalation Q4-6H PRN 03/24/22 (0.083 %) solution for nebulization bronchospasm #75 mL albuterol sulfate 90 mcg/actuation 2 puff inhalation QID PRN 03/24/22 aerosol inhaler shortness of breath or wheezing #6.7 grams ibuprofen 600 mg tablet 600 mg PO Q8H PRN pain #10 tabs 03/29/22 albuterol sulfate 2.5 mg/3 mL 2.5 mg (3 mL) inhalation Q4H PRN 04/14/22 (0.083 %) solution for nebulization shortness of breath or wheezing #75 mL albuterol sulfate 90 mcg/actuation 1 inh inhalation QID PRN shortness 04/14/22 aerosol inhaler of breath or wheezing #6.7 grams azithromycin 250 mg tablet See Rx Instructions PO .COMPLEX #6 04/14/22 (Zithromax Z-Jorgito) tabs prednisone 20 mg tablet 20 mg PO BID #10 tabs 04/14/22 Allergies Allergy/AdvReac Type Severity Reaction Status Date / Time advair Allergy Unknown Unknown Uncoded 03/29/22 01:21 From PAXIL AdvReac Intermediate NAUSEA & Uncoded 03/29/22 01:21 VOMITING Review of Systems Review of Systems: All other systems are reviewed and are negative Constitutional: Reports as per HPI and Reports no additional constitutional complaints Eyes: Reports as per HPI and Reports no additional eye complaints Reports system reviewed and no additional complaints, except as documented Cardiovascular: Reports as per HPI and Reports no additional cardiovascular complaints Respiratory: Reports as per HPI and Reports no additional respiratory complaints Gastrointestinal: Reports as per HPI and Reports no additional gastrointestinal complaints Genitourinary: Reports no additional female genitourinary complaints Musculoskeletal: Reports no additional musculoskeletal complaints Skin/Breast: Reports system reviewed and no additional complaints, except as docu Psychiatric: Reports no additional psychiatric complaints Endocrine: Reports no additional endocrine complaints Hematologic/Lymphatic: Reports no additional hematologic/lymphatic complaints Allergic/Immunologic: Reports no additional allergic/immunologic complaints Reports system reviewed and no additional complaints, except as documented and Reports Abnormal speech present [facility] Past Medical History Medical History Acute hyponatremia Alcohol use disorder Bipolar 1 disorder Bipolar I disorder Chronic hyponatremia Congestive heart failure COPD (chronic obstructive pulmonary disease) Coronary artery disease Dementia Diabetes Hypertension Korsakoff disease Osteoarthritis Schizophrenia Sleep apnea Surgical History Hx of appendectomy Social History Social History Household Members: Spouse Housing: Apartment Do you presently have visiting nurse or other home services: Yes Unable to assess alcohol history related to: Unknown Alcohol intake: current Alcohol intake frequency: a few times a week Alcohol type: beer Patient Tobacco Use Status: Current everyday Tobacco user Tobacco use type: Cigarette Cigarettes Per Day: 5 Years Smoked: 52 Smoked in Last 30 Days: Yes e-Cigarette/Vaping Use: Currently Using Second Hand Smoke Exposure: Yes Substance Use Type: Marijuana Advance Directives: Yes Advance Directives on File: Yes Advance Directives Date on File: 10/10/20 service: No Current occupational status: unemployed, disabled and other Physical Exam Vital Signs: Vital Signs: Last Vital Signs Temp 98.2 F 04/14/22 04:53 Pulse 83 04/14/22 03:50 Resp 19 04/14/22 04:53 BP 127/66 04/14/22 03:29 Pulse Ox 97 04/14/22 04:53 O2 Del Method 04/14/22 04:53 O2 Flow Rate 2 04/14/22 04:53 Oxygen Flow Rate 5 04/14/22 03:10 BMI result Body Mass Index 27.3 vital signs have been reviewed as appeared to be correct. Blood pressure normal. Heart rate normal. Respiration rate normal. Temperature normal. Oxygen saturation normal. Appearance: Alert. Oriented X3. mild acute respiratorydistress. Head: Normal external exam. Normocephalic. Atraumatic. No Jones signs noted. No raccoon eyes noted Eyes: PERRLA. EOMI. Conjunctiva and sclera normal. Eyelids normal. ENT: TM's Normal. Pharynx normal. Uvula midline. Moist mucous membranes. No trismus noted. No drooling noted. No muffled voice noted. Neck: Normal inspection. Neck supple. FROM. No adenopathy. Thyroid Normal. No meningeal signs. No neck mass noted. CVS: Normal heart rate and rhythm. Heart sound normal. No murmurs noted. Pulses normal throughout. Respiratory: mild acute respiratory distress. Painless inspiration. Breath sounds normal. bilateral diffuse expiratory wheezing with prolonged expiration. No accessory muscle usage noted or decreased air movement noted. Abdomen: Soft and nontender. Bowel sounds normal in all 4 quadrants. No distention noted. No organomegaly noted. No visible injury noted. Back: No CVA tenderness. Full range of motion noted. Skin: Skin warm and dry. Normal skin color. Normal skin turgor. No rashes/lesions/lacerations noted. Extremities: No lower extremity edema. Extremities exhibit normal range of motion. Extremities nontender. Left hand swelling no tenderness, no deformity, neurovascularly intact. Neuro: Oriented X 3. Cranial nerve exam: II-XII are grossly intact No motor deficit. No sensory deficit. Reflexes normal. Course Course Course Narrative: 66-year-old female with history of COPD, long history of smoking both cigarettes and marijuana came in with acute COPD exacerbation improved after received bronchodilator and prednisone in the ED, patient now is comfortable with stable vital sign and O2 sat is 97% with 2 L of nasal cannula that she normally uses at home. Will discharge the patient with bronchodilator/prednisone / Z-Jorgito. chronic hyponatremia which patient is asymptomatic require no acute medical intervention at this point. MDM - SOB/Dyspnea Lab Data Attestation: I reviewed the patient's lab results. Result diagrams: 04/14/22 04:51 04/14/22 04:51 Labs: Lab Results 04/14/22 04/14/22 04/14/22 Range/Units 04:51 04:51 04:51 WBC 10.1 (4.8-10.8) X10*3/uL RBC 3.48 L (4.20-5.50) X10*6/uL Hgb 9.9 L (12.0-16.0) g/dl Hct 28.0 L (37.0-47.0) % MCV 80.5 (80.0-98.0) fL MCH 28.4 (27.0-33.0) pg MCHC 35.4 H (31.0-35.0) g/dl RDW 14.6 (11.0-16.0) % Plt Count 403 H D (160-400) X10*3/uL MPV 8.2 L (9.4-12.3) fL Immature Gran % (Auto) 1.2 H (0.0-0.4) % Neut % (Auto) 74.6 H (45-73) % Lymph % (Auto) 13.0 L (20-40) % Tyrrell % (Auto) 10.7 (2-11) % Eos % (Auto) 0.3 (0-4) % Baso % (Auto) 0.2 (0-2) % Lymph # (Auto) 1.3 (1.2-4.9) X10*3/uL Tyrrell # (Auto) 1.1 (0.1-1.2) X10*3/uL Eos # (Auto) 0.0 (0.0-0.4) X10*3/uL Baso # (Auto) 0.0 (0.0-0.2) X10*3/uL Abs Immat Gran (auto) 0.12 H (0.00-0.03) X10*3/uL Absolute Neuts (auto) 7.5 (2.0-8.3) x10*3/uL Absolute Nucleated RBC 0.000 (0.0-0.012) X10*3/uL Nucleated RBC % (auto) 0.0 (0.0-0.2) /100WBC Sodium 123 L (135-145) mmol/L Potassium 3.8 D (3.3-5.1) mmol/L Chloride 90 L (96-108) mmol/L Carbon Dioxide 21 L (22-29) mmol/L Anion Gap 16 (12-20) BUN 14 D (9-16) mg/dL Creatinine 1.24 (0.5-1.4) mg/dL Estim Creat Clear Calc 40.7 Estimated GFR 43 Random Glucose 95 (60-115) mg/dL Calcium 8.5 (8.4-10.2) mg/dL Total Bilirubin 0.3 (0.0-1.0) mg/dL Direct Bilirubin 0.3 (0.0-0.5) mg/dL AST 11 (5-31) U/L ALT 8 (0-31) U/L Alkaline Phosphatase 112 (39-117) U/L Troponin I High Sens 3.5 (<3.5-17.0) ng/L Total Protein 6.7 (6.5-8.0) g/dL Albumin 3.2 L (3.5-5.0) g/dL Lipase 9 (8-78) U/L Imaging Data Left hand x-ray: Attestation: I personally reviewed and interpreted this imaging study as follows: Radiologist's impression: soft tissue swelling with no acute osseous findings. Chest x-ray: Attestation: I personally reviewed and interpreted this imaging study as follows: Radiologist's impression: No acute cardiopulmonary findings. Discharge Plan Discharge Clinical Impression: COPD exacerbation, Chronic hyponatremia Patient Disposition: Home, Self-Care Instructions: How to Stop Smoking (ED) Prescriptions: New albuterol sulfate 2.5 mg /3 mL (0.083 %) solution for nebulization 2.5 mg inhalation Q4H PRN (Reason: shortness of breath or wheezing) Qty: 75 0RF albuterol sulfate 90 mcg/actuation HFA aerosol inhaler 1 inh inhalation QID PRN (Reason: shortness of breath or wheezing) Qty: 6.7 0RF prednisone 20 mg tablet 20 mg PO BID Qty: 10 0RF azithromycin [Zithromax Z-Jorgito] 250 mg tablet See Rx Instructions .ROUTE .COMPLEX Qty: 6 0RF Rx Instructions: For 250 mg dose pack: take 500 mg today (day 1), then 250 mg for 4 days (days 2-5) No Action sennosides [senna] 8.6 mg tablet 1 tab PO BID PRN (Reason: constipation) quetiapine 25 mg tablet 1 tab PO thiamine HCl (vitamin B1) 100 mg tablet 1 tab PO QAM omeprazole 40 mg capsule,delayed release(DR/EC) 1 cap PO QAM aspirin 81 mg tablet,delayed release (DR/EC) 1 tab PO QPM acetaminophen 650 mg tablet extended release 1 tab PO BID PRN (Reason: pain) folic acid 1 mg tablet 1 tab PO QAM fluticasone propionate [Flovent HFA] 220 mcg/actuation HFA aerosol inhaler 1 puff PO BID pravastatin 20 mg tablet 1 tab PO QPM furosemide 20 mg tablet 0.5 tab PO DAILY metoprolol succinate 25 mg tablet extended release 24 hr 1 tab PO QAM albuterol sulfate 90 mcg/actuation HFA aerosol inhaler 2 puff inhalation Q4-6H PRN (Reason: Shortness Of Breath) albuterol sulfate 90 mcg/actuation HFA aerosol inhaler 2 puff inhalation QID PRN (Reason: shortness of breath or wheezing) Qty: 6.7 0RF albuterol sulfate 2.5 mg /3 mL (0.083 %) solution for nebulization 2.5 mg inhalation Q4-6H PRN (Reason: bronchospasm) Qty: 75 0RF ipratropium-albuterol 0.5 mg-3 mg(2.5 mg base)/3 mL solution for nebulization 1 amp inhalation Q4H PRN (Reason: Wheezing) ibuprofen 600 mg tablet 600 mg PO Q8H PRN (Reason: pain) Qty: 10 0RF Referrals: Name,MD Ryder [Primary Care Provider] -
[2022-04-14] MEDS: Albuterol/Iprat 2.5/0.5MG 3 ML AMPUL.NEB INHALE (03:46)
[2022-04-14] MEDS: Albuterol Sulfate (0.083%) 2.5 MG/3 ML VIAL.NEB INHALE (03:46)
[2022-04-14] MEDS: methylPREDNISolone Sod Succ 125 MG/2 ML VIAL IVPUSH (03:57)
[2022-04-14] MEDS: Magnesium Sulfate/H2O 2 GM/50 ML PIGGYBACK IV (03:58)
--- NOTE | 2022-04-14 03:58 | PC.NURSE ---
administered meds per MAR
[2022-04-14 05:07] LABS: MANUAL DIFF FLAG NO
[2022-04-14 05:24] LABS: Basophils Percent Auto 0.2 % (0-2); Eosinophils Percent Auto 0.3 % (0-4); Hemoglobin 9.9 g/dl (12.0-16.0); Imm Gran Abs Auto 0.12 X10*3/uL (0.00-0.03); Imm Gran Pct Auto 1.2 % (0.0-0.4); Lymphocytes Absolute Auto 1.3 X10*3/uL (1.2-4.9); Mean Corpuscular HGB Conc 35.4 g/dl (31.0-35.0); Mean Corpuscular Hemoglobin 28.4 pg (27.0-33.0); Mean Corpuscular Volume 80.5 fL (80.0-98.0); Mean Platelet Volume 8.2 fL (9.4-12.3); Monocytes Absolute Auto 1.1 X10*3/uL (0.1-1.2); Monocytes Percent Auto 10.7 % (2-11); Neutrophils Absolute Auto 7.5 x10*3/uL (2.0-8.3); Neutrophils Percent Auto 74.6 % (45-73); Platelet Count 403 X10*3/uL (160-400); Red Blood Count 3.48 X10*6/uL (4.20-5.50); Red Cell Distribution Width 14.6 % (11.0-16.0); White Blood Count 10.1 X10*3/uL (4.8-10.8)
[2022-04-14 05:36] LABS: Troponin-I High Sensitivity 3.5 ng/L (<3.5-17.0)
[2022-04-14 05:37] LABS: Alanine Aminotransferase 8 U/L (0-31); Albumin Level 3.2 g/dL (3.5-5.0); Alkaline Phosphatase 112 U/L (39-117); Anion Gap 16 (12-20); Aspartate Amino Transferase 11 U/L (5-31); Bilirubin Direct 0.3 mg/dL (0.0-0.5); Bilirubin Total 0.3 mg/dL (0.0-1.0); Blood Urea Nitrogen 14 mg/dL (9-16); Calcium 8.5 mg/dL (8.4-10.2); Carbon Dioxide 21 mmol/L (22-29); Chloride 90 mmol/L (96-108); Creatinine Clr Calc Pharmacy 40.7; Estimated Glomerular Filt Rate 43; Glucose Random 95 mg/dL (60-115); Lipase 9 U/L (8-78); Potassium 3.8 mmol/L (3.3-5.1); Sodium 123 mmol/L (135-145); Total Protein 6.7 g/dL (6.5-8.0)
--- NOTE | 2022-04-14 11:30 | PC.NURSE ---
PT AWAITING EMS TRANSPORT HOME
== END 2022-04-14 13:00 | disposition home or self-care (01) ==
PROVIDERS: Emergency Provider Emergency Medicine; PCP Internal Medicine Geriatric Medicine
DX: J44.1 Chronic obstructive pulmonary disease with (acute) exacerbation (principal); I11.0 Hypertensive heart disease with heart failure; I50.9 Heart failure, unspecified; E11.9 Type 2 diabetes mellitus without complications; F17.210 Nicotine dependence, cigarettes, uncomplicated; F12.90 Cannabis use, unspecified, uncomplicated; Z99.81 Dependence on supplemental oxygen; Z79.82 Long term (current) use of aspirin; Z79.02 Long term (current) use of antithrombotics/antiplatelets; Z79.899 Other long term (current) drug therapy
CPT/HCPCS: 36415; 71045; 73120; 80048; 80076; 83690; 84484; 85025; 94640; 96365; 96366; 96375; 99284; 99285; J2930; J3475

== ENCOUNTER 2022-04-22 09:33 | Inpatient (IN) | payer MEDICARE, MEDICAID, SELFPAY ==
[2022-04-22] VITALS (8 sets, daily range): BP systolic 136–166; BP diastolic 58–110; PULSE 74–99; RESP 14–20; TEMP 37.7; O2SAT 98–100; BMI 25.7
--- NOTE | ~2022-04-22 | CT_ITS ---
EXAMINATION: CT HEAD WITHOUT CONTRAST CLINICAL INFORMATION: Status post fall, hit head. COMPARISON: 11/16/[address] scan. TECHNIQUE: Contiguous axial imaging was performed from the skull base to vertex without intravenous administration of contrast. Coronal and sagittal reformatted images were obtained. This CT examination was performed using dose optimization techniques as appropriate, variously including the following: *Automated exposure control *Adjustment of mA and/or kV according to patient size (this includes techniques or standardized protocols for targeted exams where dose is matched to indication/reason for exam; i.e. extremities or head) *Use of iterative reconstruction technique DLP: 436.29 mGy-cm FINDINGS: There is mild widening of the cortical sulci and associated ventriculomegaly. Mild periventricular microvascular changes. The lateral ventricles are symmetrical. The third and fourth ventricles are in their normal midline position. The basilar and prepontine cisterns are unremarkable. There is no acute intra or extracerebral abnormality. There is no mass effect or midline shift. Sections through the bony calvarium are unremarkable. The orbits are intact. The paranasal sinuses are clear. The mastoid air cells are clear. CT/CT head/brain wo con IMPRESSION: No acute intracranial pathology.
--- NOTE | ~2022-04-22 | CT_ITS ---
EXAMINATION: CT CERVICAL SPINE WITHOUT CONTRAST CLINICAL INFORMATION: Status post fall with neck pain. COMPARISON: None TECHNIQUE: Multiple axial images of the cervical spine were obtained without the administration of intravenous contrast. Coronal and sagittal reformatted images were obtained. This CT examination was performed using dose optimization techniques as appropriate, variously including the following: *Automated exposure control *Adjustment of mA and/or kV according to patient size (this includes techniques or standardized protocols for targeted exams where dose is matched to indication/reason for exam; i.e. extremities or head) *Use of iterative reconstruction technique DLP: 436.29 mGy-cm FINDINGS: There is straightening of the normal cervical lordosis with normal spinal alignment. Prominent anterior osteophyte formation is seen from C3 to C7, most pronounced from C3 to C5. There is minimal grade 1 retrolisthesis of C4 relative to C5. Minimal grade 1 anterolisthesis is seen at C7-T1. Moderate right facet arthropathy is seen at C7-T1 with hypertrophic changes. Mild left facet arthropathy is seen at C3-C4. Left facet fusion is seen on the left at the C3-C4. Mild to moderate multilevel degenerative disc disease is seen in the vertebral bodies are intact. The odontoid process is intact with moderate articular degenerative changes. Mild bilateral neural foraminal narrowing is seen from C4-C5 to C6-C7. The cervical soft tissues are unremarkable. No lymphadenopathy. The thyroid gland is unremarkable. The lung apices are clear. CT/CT cervical spine wo con IMPRESSION: 1. Straightening of the normal cervical lordosis may be secondary to positioning and/or muscle spasm. 2. Multilevel degenerative changes without overt acute abnormality.
--- NOTE | ~2022-04-22 | XR_ITS ---
EXAMINATION: XR CHEST CLINICAL INFORMATION: Shortness of breath COMPARISON: Chest x-ray 04/22/2022 TECHNIQUE: Frontal view of the chest was obtained. FINDINGS: The lungs are clear. No airspace consolidation, pleural effusion, or pneumothorax. The cardiomediastinal silhouette is within normal limits. No acute osseous injury.Bilateral shoulder joint arthropathy right greater than left. Possible erosive changes to right humeral head versus extensive subchondral cysts. XR/XR chest 1V IMPRESSION: No acute pulmonary process.
--- NOTE | ~2022-04-22 | XR_ITS ---
EXAMINATION: XR CHEST CLINICAL INFORMATION: Presyncope. COMPARISON: 04/14/2022 chest radiograph. TECHNIQUE: Frontal view of the chest was obtained. FINDINGS: No significant abnormality is noted involving the heart, lungs, mediastinum, bony thorax or soft tissues. XR/XR chest 1V IMPRESSION: No acute cardiopulmonary process.
--- NOTE | 2022-04-22 10:12 | ECG_ITS ---
Test Reason : pre-syncope Blood Pressure : / mmHG Vent. Rate : 070 BPM Atrial Rate : 070 BPM P-R Int : 150 ms QRS Dur : 092 ms QT Int : 384 ms P-R-T Axes : 067 000 059 degrees QTc Int : 414 ms Normal sinus rhythm Cannot rule out Anteroseptal infarct (cited on or before 23-FEB-2022) Abnormal ECG When compared with ECG of 23-FEB-2022 09:42, No significant change was found Referred By: Eri Johnson Electronically Signed By:LYNDA GLEZ
[2022-04-22 10:40] LABS: MANUAL DIFF FLAG NO
[2022-04-22 10:42] LABS: Eosinophils Percent Auto 0.1 % (0-4); Hematocrit 28.5 % (37.0-47.0); Hemoglobin 9.7 g/dl (12.0-16.0); Imm Gran Abs Auto 0.14 X10*3/uL (0.00-0.03); Imm Gran Pct Auto 1.6 % (0.0-0.4); Lymphocytes Absolute Auto 2.8 X10*3/uL (1.2-4.9); Lymphocytes Percent Auto 30.9 % (20-40); Mean Corpuscular Hemoglobin 28.3 pg (27.0-33.0); Mean Corpuscular Volume 83.1 fL (80.0-98.0); Monocytes Absolute Auto 0.7 X10*3/uL (0.1-1.2); Monocytes Percent Auto 7.9 % (2-11); Neutrophils Absolute Auto 5.3 x10*3/uL (2.0-8.3); Neutrophils Percent Auto 59.5 % (45-73); Platelet Count 400 X10*3/uL (160-400); Red Blood Count 3.43 X10*6/uL (4.20-5.50); Red Cell Distribution Width 15.1 % (11.0-16.0)
[2022-04-22 11:01] LABS: B Type Natriuretic Peptide 61 pg/mL (<100); Troponin-I High Sensitivity 4.3 ng/L (<3.5-17.0)
[2022-04-22 11:03] LABS: COVID-19 Test Negative (Negative)
--- NOTE | 2022-04-22 11:07 | ED.FALL ---
HPI - Fall General Chief Complaint: Fall <ALICIA Dupree Last Filed: 04/22/22 17:20> Stated Complaint: hit head? <ALICIA Dupree Last Filed: 04/22/22 17:20> Time Seen by Provider: 04/22/22 09:55 <ALICIA Dupree Last Filed: 04/22/22 17:20> Source: patient and EMS <ALICIA Dupree Last Filed: 04/22/22 17:20> Mode of arrival: EMS <ALICIA Dupree Last Filed: 04/22/22 17:20> History of Present Illness HPI Narrative: 66-year-old female with past medical history of ETOH use, bipolar, CHF, COPD, CAD, dementia, diabetes, HTN, DANO, schizophrenia, sleep apnea, [place]er-speaking, BIBA for fall this a.m. in bathroom s/p standing up from toilet, patient reports feeling lightheaded prior to fall, denies LOC, admits to hitting head. Denies taking AC. Admits to similar lightheaded episodes in the past related to her diabetes/not eating this morning. Also reports increased depression x2 days with SI attempt this morning to slit wrist with 's razor blade. Patient also reports CP. 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 Denies headache, neck pain, back pain, SOB, abdominal pain, nausea/vomiting, HI/AH <ALICIA Dupree Last Filed: 04/22/22 17:20> MD complaint: fall <ALICIA Dupree Last Filed: 04/22/22 17:20> Onset (ago): hour(s) <ALICIA Dupree Last Filed: 04/22/22 17:20> Related Data Home Medications: Home Medications Medication Instructions Recorded Confirmed sennosides 8.6 mg tablet (senna) 1 tab PO BID PRN constipation 02/04/21 04/22/22 ipratropium 0.5 mg-albuterol 3 mg 1 amp inhalation Q4H PRN Wheezing 11/24/21 04/22/22 (2.5 mg base)/3 mL nebulization soln acetaminophen 650 mg 1 tab PO BID PRN pain 03/21/22 04/22/22 tablet,extended release aspirin 81 mg tablet,delayed 1 tab PO QPM 03/21/22 04/22/22 release fluticasone propionate 220 1 puff PO BID 03/21/22 04/22/22 mcg/actuation HFA aerosol inhaler (Flovent HFA) folic acid 1 mg tablet 1 tab PO QAM 03/21/22 04/22/22 furosemide 20 mg tablet 0.5 tab PO DAILY 03/21/22 04/22/22 metoprolol succinate 25 mg 1 tab PO QAM 03/21/22 04/22/22 tablet,extended release 24 hr omeprazole 40 mg capsule,delayed 1 cap PO QAM 03/21/22 04/22/22 release pravastatin 20 mg tablet 1 tab PO QPM 03/21/22 04/22/22 quetiapine 25 mg tablet 1 tab PO BID 03/21/22 04/22/22 thiamine HCl (vitamin B1) 100 mg 1 tab PO QAM 03/21/22 04/22/22 tablet albuterol sulfate 90 mcg/actuation 1 puff PO QID PRN wheezing 04/22/22 04/22/22 aerosol inhaler baclofen 20 mg tablet 20 mg PO DAILY PRN Back Pain 04/22/22 04/22/22 montelukast 10 mg tablet 1 tab PO QPM 04/22/22 04/22/22 ondansetron 4 mg disintegrating 4 mg PO Q12H PRN Nausea 04/22/22 04/22/22 tablet <ALICIA Dupree - Last Filed: 04/22/22 17:20> Allergies/Adverse Reactions: Allergies Allergy/AdvReac Type Severity Reaction Status Date / Time advair Allergy Unknown Unknown Uncoded 03/29/22 01:21 From PAXIL AdvReac Intermediate NAUSEA & Uncoded 03/29/22 01:21 VOMITING <ALICIA Dupree - Last Filed: 04/22/22 17:20> Review of Systems Review of Systems: Constitutional: No Fever, No Chills, No Fatigue, No Malaise ENT/Mouth: No Ear Pain, No Nasal Congestion, No Sinus Pain, No Hoarseness, No sore throat, No Rhinorrhea, No Swallowing Difficulty Eyes: No Eye Pain, No Swelling, No Redness, No Vision Changes Cardiovascular: + Chest Pain, No SOB, No Dyspnea on Exertion, No Orthopnea, No Edema, No Palpitations Respiratory: No Cough, No Sputum, No Dyspnea Gastrointestinal: No Nausea, No Vomiting, No Diarrhea, No Constipation, No Abdominal pain Genitourinary:No Dysuria, No Urinary Frequency, No Hematuria, No Urinary Incontinence/retention Musculoskeletal: No joint pain, No Myalgias, No Joint Swelling Skin: No Skin Lesions, No rash Neuro: No Weakness, No Numbness, No Paresthesias, No Loss of Consciousness, + Lightheaded, + Head injury Psych: No Anxiety/Panic, + Depression, + SI, +VH, No HI/AH, No Social Issues <ALICIA Dupree - Last Filed: 04/22/22 17:20> Yes all other systems are reviewed and are negative <ALICIA Dupree - Last Filed: 04/22/22 17:20> Constitutional: Constitutional: Reports as per HPI <ALICIA Dupree - Last Filed: 04/22/22 17:20> Neurologic: Denies Abnormal speech present <ALICIA Dupree - Last Filed: 04/22/22 17:20> [facility] Past Medical History Attestation statement: The following information was validated with the patient. <ALICIA Dupree - Last Filed: 04/22/22 17:20> Medical History: Medical History (Updated 04/23/22 @ 17:15 by Brook Hernandez APRN) Acute hyponatremia Alcohol use disorder Bipolar 1 disorder Bipolar I disorder Cannabis use disorder, moderate, dependence Chronic hyponatremia Congestive heart failure COPD (chronic obstructive pulmonary disease) Coronary artery disease Dementia Diabetes Hypertension Korsakoff disease Osteoarthritis Schizophrenia Sleep apnea <ALICIA Dupree - Last Filed: 04/22/22 17:20> Surgical History: Surgical History Hx of appendectomy <ALICIA Dupree Last Filed: 04/22/22 17:20> Social History Social History: Social History Household Members: Spouse Housing: Apartment Do you presently have visiting nurse or other home services: Yes Unable to assess alcohol history related to: Unknown Alcohol intake: current Alcohol intake frequency: a few times a week Alcohol type: beer Patient Tobacco Use Status: Current everyday Tobacco user Tobacco use type: Cigarette Cigarettes Per Day: 5 Years Smoked: 52 e-Cigarette/Vaping Use: Currently Using Second Hand Smoke Exposure: Yes Substance Use Type: Marijuana Advance Directives: Yes Advance Directives on File: Yes Advance Directives Date on File: 10/10/20 service: No Current occupational status: unemployed, disabled and other <ALICIA Dupree - Last Filed: 04/22/22 17:20> Physical Exam Vital Signs: Vital Signs: Last Vital Signs Temp 99 F 04/24/22 08:16 Pulse 84 04/24/22 08:16 Resp 18 04/24/22 08:16 BP 139/85 04/24/22 08:16 Pulse Ox 100 04/24/22 08:16 O2 Del Method 04/24/22 08:16 BMI result Body Mass Index 25.7 <ALICIA Dupree - Last Filed: 04/22/22 17:20> Vital Signs: Last Vital Signs Temp 99 F 04/24/22 08:16 Pulse 84 04/24/22 08:16 Resp 18 04/24/22 08:16 BP 139/85 04/24/22 08:16 Pulse Ox 100 04/24/22 08:16 O2 Del Method 04/24/22 08:16 BMI result Body Mass Index 25.7 <Elvia Us MD - Last Filed: 04/23/22 10:51> Vital Signs: Last Vital Signs Temp 99 F 04/24/22 08:16 Pulse 84 04/24/22 08:16 Resp 18 04/24/22 08:16 BP 139/85 04/24/22 08:16 Pulse Ox 100 04/24/22 08:16 O2 Del Method 04/24/22 08:16 BMI result Body Mass Index 25.7 <ALICIA Chauhan - Last Filed: 04/24/22 08:24> Const: Other: Tearful <ALICIA Dupree - Last Filed: 04/22/22 17:20> General: cooperative, no acute distress and anxious <ALICIA Dupree - Last Filed: 04/22/22 17:20> Orientation/consciousness: patient oriented x3 <ALICIA Dupree - Last Filed: 04/22/22 17:20> Limitations: no limitations <ALICIA Dupree - Last Filed: 04/22/22 17:20> HEENT: Head: Yes normal to inspection and Yes atraumatic <Eri Johnson PA - Last Filed: 04/22/22 17:20> Ears: hearing grossly normal bilaterally <Eri Johnson PA - Last Filed: 04/22/22 17:20> General nose exam: Normal external nose present <Eri Johnson PA - Last Filed: 04/22/22 17:20> Face and sinus: Yes normal facial exam <ALICIA Dupree - Last Filed: 04/22/22 17:20> Eyes: General: appearance normal, both eyes and all related structures <ALICIA Dupree - Last Filed: 04/22/22 17:20> EOM: EOMs intact bilaterally <Eri Johnson [place] - Last Filed: 04/22/22 17:20> Neck: Neck: Yes normal visual inspection, Yes no meningeal signs and Yes supple <Eri Johnson [place] - Last Filed: 04/22/22 17:20> Resp: Effort & Inspection: normal respiratory effort and no respiratory distress <Eri Johnson PA - Last Filed: 04/22/22 17:20> Auscultation: wheezes expiratory wheezes and lower bilaterally <ALICIA Dupree - Last Filed: 04/22/22 17:20> Cardio: Rate: regular rate <Eri Johnson PA - Last Filed: 04/22/22 17:20> Heart sounds: S1 normal heart sound present and S2 normal heart sound present <ALICIA Dupree - Last Filed: 04/22/22 17:20> GI: Inspection: Yes normal to inspection <Eri Johnson PA - Last Filed: 04/22/22 17:20> Palpation (GI): Soft to palpation, nontender, no guarding and not rigid <ALICIA Dupree - Last Filed: 04/22/22 17:20> : General: Yes no CVA tenderness <Eri Johnson PA - Last Filed: 04/22/22 17:20> Back/Spine/Pelvis: Other: No midline thoracic/lumbar spinous tenderness/step-off or deformity <Eri Johnson PA - Last Filed: 04/22/22 17:20> Back: no CVA tenderness <Eri Johnson PA - Last Filed: 04/22/22 17:20> Skin: Rashes: no rashes <Eri Johnson PA - Last Filed: 04/22/22 17:20> Wounds: no wounds <Eri Johnson PA - Last Filed: 04/22/22 17:20> Neuro: General: patient oriented x3, tone normal, moves all extremities, no meningeal signs, no focal motor deficits and CN's II-XI intact bilaterally <Eri Johnson PA - Last Filed: 04/22/22 17:20> Cranial nerves: Yes CN's II-XII intact bilaterally and Yes Bilaterally intact EOM present <Eri Johnson PA - Last Filed: 04/22/22 17:20> Speech: No Abnormal speech present <Eri Johnson PA - Last Filed: 04/22/22 17:20> Motor exam (neuro): 5/5 motor strength present throughout <Eri Johnson PA - Last Filed: 04/22/22 17:20> Extrem: General: Yes normal to inspection <Eri Johnson PA - Last Filed: 04/22/22 17:20> Psych: Affect: Sad affect present <Eri Johnson PA - Last Filed: 04/22/22 17:20> Attitude: cooperative <Eri Johnson PA - Last Filed: 04/22/22 17:20> Thought process: Flight of ideas present <Eri Johnson PA - Last Filed: 04/22/22 17:20> Thought content: Suicidality present, no homicidality, Hallucination(s) present visual and Depressive thoughts present <Eri Johnson PA - Last Filed: 04/22/22 17:20> Insight: Fair insight present (Psych) <Eri Johnson PA - Last Filed: 04/22/22 17:20> Course Course Course Narrative: -1134--no leukocytosis. H&H at patient's baseline. Chronic hyponatremia. BUN chronically elevated. -initial troponin negative > will obtain 3 hour repeat XR chest 1V IMPRESSION: No acute cardiopulmonary process. ? -1353--Repeat troponin without 50% rise, OR unlikely -UA with RBC/not infected CT head/brain wo con IMPRESSION: No acute intracranial pathology. CT cervical spine wo conIMPRESSION: 1. Straightening of the normal cervical lordosis may be secondary to positioning and/or muscle spasm. 2. Multilevel degenerative changes without overt acute abnormality. Patient is medically cleared. > patient was evaluated by [facility] and is now an inpatient [facility] psych bed search. Physician observation initiated as patient needs more time for bed search -1800--ED care transferred to ALICIA Somers pending [facility]-psych bed search <ALICIA Dupree - Last Filed: 04/22/22 17:20> Reevaluation(s) Reevaluation #1: Physician observation will be continued. Patient continues to be an inpatient [facility] psych bed search. No acute events overnight. <Elvia Us MD - Last Filed: 04/23/22 10:51> Time: 10:51 <Elvia Us MD - Last Filed: 04/23/22 10:51> Reevaluation #2: physician observation continued. Patient is not in any distress. Patient watching television eating food in the bed. Patient is it to [facility] psych bed search <ALICIA Chauhan - Last Filed: 04/24/22 08:24> Time: 08:23 <ALICIA Chauhan - Last Filed: 04/24/22 08:24> MDM - Fall MDM Narrative Medical decision making narrative: 66-year-old female with past medical history of ETOH use, bipolar, CHF, COPD, CAD, dementia, diabetes, HTN, DANO, schizophrenia, sleep apnea, [place]er-speaking, BIBA for fall this a.m. in bathroom s/p standing up from toilet, patient reports feeling lightheaded from to fall, denies LOC, admits to hitting head. Also reports increased depression x2 days with SI attempt this morning to slit wrist with 's razor blade. On exam vital signs stable, NAD, nontoxic appearing, physical exam as above, patient tearful and depressed during exam, no focal neuro deficits, no evidence of head trauma, no midline spinous tenderness throughout. Concern for ACS vs metabolic/infectious etiologies. Rule out ICH. Plan: EKG, labs, UA, drug screen, crisis consult, DuoNeb <ALICIA Dupree - Last Filed: 04/22/22 17:20> Differential Diagnosis Differential diagnosis: Likely concussion without loss of consciousness <ALICIA Dupree - Last Filed: 04/22/22 17:20> Medical Records Attestation: I reviewed the patient's medical records. <ALICIA Dupree - Last Filed: 04/22/22 17:20> Lab Data Attestation: I reviewed the patient's lab results. <ALICIA Dupree - Last Filed: 04/22/22 17:20> Result diagrams: : 04/22/22 10:36 04/22/22 10:36 <ALICIA Dupree - Last Filed: 04/22/22 17:20> Labs: Lab Results 04/22/22 04/22/22 04/22/22 Range/Units 10:36 10:36 10:36 WBC 9.0 (4.8-10.8) X10*3/uL RBC 3.43 L (4.20-5.50) X10*6/uL Hgb 9.7 L (12.0-16.0) g/dl Hct 28.5 L (37.0-47.0) % MCV 83.1 (80.0-98.0) fL MCH 28.3 (27.0-33.0) pg MCHC 34.0 (31.0-35.0) g/dl RDW 15.1 (11.0-16.0) % Plt Count 400 (160-400) X10*3/uL MPV 8.0 L (9.4-12.3) fL Immature Gran % (Auto) 1.6 H (0.0-0.4) % Neut % (Auto) 59.5 (45-73) % Lymph % (Auto) 30.9 (20-40) % [place] % (Auto) 7.9 (2-11) % Eos % (Auto) 0.1 (0-4) % Baso % (Auto) 0.0 (0-2) % Lymph # (Auto) 2.8 (1.2-4.9) X10*3/uL [place] # (Auto) 0.7 (0.1-1.2) X10*3/uL Eos # (Auto) 0.0 (0.0-0.4) X10*3/uL Baso # (Auto) 0.0 (0.0-0.2) X10*3/uL Abs Immat Gran (auto) 0.14 H (0.00-0.03) X10*3/uL Absolute Neuts (auto) 5.3 (2.0-8.3) x10*3/uL Absolute Nucleated RBC 0.000 (0.0-0.012) X10*3/uL Nucleated RBC % (auto) 0.0 (0.0-0.2) /100WBC Sodium 130 L (135-145) mmol/L Potassium 4.4 (3.3-5.1) mmol/L Chloride 99 (96-108) mmol/L Carbon Dioxide 25 (22-29) mmol/L Anion Gap 10 L (12-20) BUN 31 H D (9-16) mg/dL Creatinine 0.91 (0.5-1.4) mg/dL Estim Creat Clear Calc 53.9 Estimated GFR > 60 POC Glucose (60-115) mg/dL Random Glucose 91 (60-115) mg/dL Calcium 8.7 (8.4-10.2) mg/dL Magnesium 2.0 (1.6-2.6) mg/dL Total Bilirubin 0.3 (0.0-1.0) mg/dL Direct Bilirubin 0.2 (0.0-0.5) mg/dL AST 11 (5-31) U/L ALT 13 (0-31) U/L Alkaline Phosphatase 86 D (39-117) U/L Troponin I High Sens 4.3 (<3.5-17.0) ng/L B-Natriuretic Peptide 61 (<100) pg/mL Total Protein 6.2 L (6.5-8.0) g/dL Albumin 3.3 L (3.5-5.0) g/dL Vitamin B12 (200-900) pg/mL Folate (> or = 4.0) ng/mL TSH (0.32-4.0) uIU/mL Urine Color Urine Appearance Urine pH (5.0-8.0) Ur Specific [place] (1.005-1.025) Urine Protein (NEG-TRACE) MG/DL Urine Glucose (UA) (NEG) MG/DL Urine Ketones (NEG) MG/DL Urine Blood (NEG) Urine Nitrite (NEG) Ur Leukocyte Esterase (NEG) Urine RBC (0) /HPF Urine WBC (0-4) /HPF Ur Squamous Epith Cells /LPF Urine Bacteria /LPF Urine Opiates Screen (Not Detect) Urine Fentanyl Screen (Not Detect) Ur Barbiturates Screen (Not Detect) Ur Phencyclidine Scrn (Not Detect) Ur Amphetamines Screen (Not Detect) U Benzodiazepines Scrn (Not Detect) Urine Cocaine Screen (Not Detect) U Marijuana (THC) Screen (Not Detect) Ethyl Alcohol < 10 mg/dL COVID-19 ([facility]) (Negative) COVID-19 Clin Com 04/22/22 04/22/22 04/22/22 Range/Units 10:36 11:47 11:47 WBC (4.8-10.8) X10*3/uL RBC (4.20-5.50) X10*6/uL Hgb (12.0-16.0) g/dl Hct (37.0-47.0) % MCV (80.0-98.0) fL MCH (27.0-33.0) pg MCHC (31.0-35.0) g/dl RDW (11.0-16.0) % Plt Count (160-400) X10*3/uL MPV (9.4-12.3) fL Immature Gran % (Auto) (0.0-0.4) % Neut % (Auto) (45-73) % Lymph % (Auto) (20-40) % [place] % (Auto) (2-11) % Eos % (Auto) (0-4) % Baso % (Auto) (0-2) % Lymph # (Auto) (1.2-4.9) X10*3/uL [place] # (Auto) (0.1-1.2) X10*3/uL Eos # (Auto) (0.0-0.4) X10*3/uL Baso # (Auto) (0.0-0.2) X10*3/uL Abs Immat Gran (auto) (0.00-0.03) X10*3/uL Absolute Neuts (auto) (2.0-8.3) x10*3/uL Absolute Nucleated RBC (0.0-0.012) X10*3/uL Nucleated RBC % (auto) (0.0-0.2) /100WBC Sodium (135-145) mmol/L Potassium (3.3-5.1) mmol/L Chloride (96-108) mmol/L Carbon Dioxide (22-29) mmol/L Anion Gap (12-20) BUN (9-16) mg/dL Creatinine (0.5-1.4) mg/dL Estim Creat Clear Calc Estimated GFR POC Glucose (60-115) mg/dL Random Glucose (60-115) mg/dL Calcium (8.4-10.2) mg/dL Magnesium (1.6-2.6) mg/dL Total Bilirubin (0.0-1.0) mg/dL Direct Bilirubin (0.0-0.5) mg/dL AST (5-31) U/L ALT (0-31) U/L Alkaline Phosphatase (39-117) U/L Troponin I High Sens 3.7 (<3.5-17.0) ng/L B-Natriuretic Peptide (<100) pg/mL Total Protein (6.5-8.0) g/dL Albumin (3.5-5.0) g/dL Vitamin B12 (200-900) pg/mL Folate (> or = 4.0) ng/mL TSH (0.32-4.0) uIU/mL Urine Color YELLOW Urine Appearance HAZY Urine pH 6.0 (5.0-8.0) Ur Specific [place] 1.010 (1.005-1.025) Urine Protein NEG (NEG-TRACE) MG/DL Urine Glucose (UA) NEG (NEG) MG/DL Urine Ketones NEG (NEG) MG/DL Urine Blood 3+ H (NEG) Urine Nitrite NEG (NEG) Ur Leukocyte Esterase NEG (NEG) Urine RBC 15-29 H (0) /HPF Urine WBC 0 (0-4) /HPF Ur Squamous Epith Cells 2+ /LPF Urine Bacteria NONE /LPF Urine Opiates Screen (Not Detect) Urine Fentanyl Screen (Not Detect) Ur Barbiturates Screen (Not Detect) Ur Phencyclidine Scrn (Not Detect) Ur Amphetamines Screen (Not Detect) U Benzodiazepines Scrn (Not Detect) Urine Cocaine Screen (Not Detect) U Marijuana (THC) Screen (Not Detect) Ethyl Alcohol mg/dL COVID-19 ([facility]) Negative (Negative) COVID-19 Clin Com See Note 04/22/22 04/23/22 04/23/22 Range/Units 11:47 07:17 12:07 WBC (4.8-10.8) X10*3/uL RBC (4.20-5.50) X10*6/uL Hgb (12.0-16.0) g/dl Hct (37.0-47.0) % MCV (80.0-98.0) fL MCH (27.0-33.0) pg MCHC (31.0-35.0) g/dl RDW (11.0-16.0) % Plt Count (160-400) X10*3/uL MPV (9.4-12.3) fL Immature Gran % (Auto) (0.0-0.4) % Neut % (Auto) (45-73) % Lymph % (Auto) (20-40) % [place] % (Auto) (2-11) % Eos % (Auto) (0-4) % Baso % (Auto) (0-2) % Lymph # (Auto) (1.2-4.9) X10*3/uL [place] # (Auto) (0.1-1.2) X10*3/uL Eos # (Auto) (0.0-0.4) X10*3/uL Baso # (Auto) (0.0-0.2) X10*3/uL Abs Immat Gran (auto) (0.00-0.03) X10*3/uL Absolute Neuts (auto) (2.0-8.3) x10*3/uL Absolute Nucleated RBC (0.0-0.012) X10*3/uL Nucleated RBC % (auto) (0.0-0.2) /100WBC Sodium (135-145) mmol/L Potassium (3.3-5.1) mmol/L Chloride (96-108) mmol/L Carbon Dioxide (22-29) mmol/L Anion Gap (12-20) BUN (9-16) mg/dL Creatinine (0.5-1.4) mg/dL Estim Creat Clear Calc Estimated GFR POC Glucose 93 167 H (60-115) mg/dL Random Glucose (60-115) mg/dL Calcium (8.4-10.2) mg/dL Magnesium (1.6-2.6) mg/dL Total Bilirubin (0.0-1.0) mg/dL Direct Bilirubin (0.0-0.5) mg/dL AST (5-31) U/L ALT (0-31) U/L Alkaline Phosphatase (39-117) U/L Troponin I High Sens (<3.5-17.0) ng/L B-Natriuretic Peptide (<100) pg/mL Total Protein (6.5-8.0) g/dL Albumin (3.5-5.0) g/dL Vitamin B12 (200-900) pg/mL Folate (> or = 4.0) ng/mL TSH (0.32-4.0) uIU/mL Urine Color Urine Appearance Urine pH (5.0-8.0) Ur Specific [place] (1.005-1.025) Urine Protein (NEG-TRACE) MG/DL Urine Glucose (UA) (NEG) MG/DL Urine Ketones (NEG) MG/DL Urine Blood (NEG) Urine Nitrite (NEG) Ur Leukocyte Esterase (NEG) Urine RBC (0) /HPF Urine WBC (0-4) /HPF Ur Squamous Epith Cells /LPF Urine Bacteria /LPF Urine Opiates Screen Not Detected (Not Detect) Urine Fentanyl Screen Not Detected (Not Detect) Ur Barbiturates Screen Not Detected (Not Detect) Ur Phencyclidine Scrn Not Detected (Not Detect) Ur Amphetamines Screen Not Detected (Not Detect) U Benzodiazepines Scrn Not Detected (Not Detect) Urine Cocaine Screen Not Detected (Not Detect) U Marijuana (THC) Screen POSITIVE H (Not Detect) Ethyl Alcohol mg/dL COVID-19 ([facility]) (Negative) COVID-19 Clin Com 04/23/22 04/23/22 04/23/22 Range/Units 19:57 19:57 21:43 WBC (4.8-10.8) X10*3/uL RBC (4.20-5.50) X10*6/uL Hgb (12.0-16.0) g/dl Hct (37.0-47.0) % MCV (80.0-98.0) fL MCH (27.0-33.0) pg MCHC (31.0-35.0) g/dl RDW (11.0-16.0) % Plt Count (160-400) X10*3/uL MPV (9.4-12.3) fL Immature Gran % (Auto) (0.0-0.4) % Neut % (Auto) (45-73) % Lymph % (Auto) (20-40) % [place] % (Auto) (2-11) % Eos % (Auto) (0-4) % Baso % (Auto) (0-2) % Lymph # (Auto) (1.2-4.9) X10*3/uL [place] # (Auto) (0.1-1.2) X10*3/uL Eos # (Auto) (0.0-0.4) X10*3/uL Baso # (Auto) (0.0-0.2) X10*3/uL Abs Immat Gran (auto) (0.00-0.03) X10*3/uL Absolute Neuts (auto) (2.0-8.3) x10*3/uL Absolute Nucleated RBC (0.0-0.012) X10*3/uL Nucleated RBC % (auto) (0.0-0.2) /100WBC Sodium (135-145) mmol/L Potassium (3.3-5.1) mmol/L Chloride (96-108) mmol/L Carbon Dioxide (22-29) mmol/L Anion Gap (12-20) BUN (9-16) mg/dL Creatinine (0.5-1.4) mg/dL Estim Creat Clear Calc Estimated GFR POC Glucose 149 H (60-115) mg/dL Random Glucose (60-115) mg/dL Calcium (8.4-10.2) mg/dL Magnesium (1.6-2.6) mg/dL Total Bilirubin (0.0-1.0) mg/dL Direct Bilirubin (0.0-0.5) mg/dL AST (5-31) U/L ALT (0-31) U/L Alkaline Phosphatase (39-117) U/L Troponin I High Sens (<3.5-17.0) ng/L B-Natriuretic Peptide (<100) pg/mL Total Protein (6.5-8.0) g/dL Albumin (3.5-5.0) g/dL Vitamin B12 330 (200-900) pg/mL Folate 17.0 (> or = 4.0) ng/mL TSH 2.16 (0.32-4.0) uIU/mL Urine Color Urine Appearance Urine pH (5.0-8.0) Ur Specific [place] (1.005-1.025) Urine Protein (NEG-TRACE) MG/DL Urine Glucose (UA) (NEG) MG/DL Urine Ketones (NEG) MG/DL Urine Blood (NEG) Urine Nitrite (NEG) Ur Leukocyte Esterase (NEG) Urine RBC (0) /HPF Urine WBC (0-4) /HPF Ur Squamous Epith Cells /LPF Urine Bacteria /LPF Urine Opiates Screen (Not Detect) Urine Fentanyl Screen (Not Detect) Ur Barbiturates Screen (Not Detect) Ur Phencyclidine Scrn (Not Detect) Ur Amphetamines Screen (Not Detect) U Benzodiazepines Scrn (Not Detect) Urine Cocaine Screen (Not Detect) U Marijuana (THC) Screen (Not Detect) Ethyl Alcohol mg/dL COVID-19 ([facility]) (Negative) COVID-19 Clin Com <ALICIA Dupree - Last Filed: 04/22/22 17:20> Lab Results 04/22/22 04/22/22 04/22/22 Range/Units 10:36 10:36 10:36 WBC 9.0 (4.8-10.8) X10*3/uL RBC 3.43 L (4.20-5.50) X10*6/uL Hgb 9.7 L (12.0-16.0) g/dl Hct 28.5 L (37.0-47.0) % MCV 83.1 (80.0-98.0) fL MCH 28.3 (27.0-33.0) pg MCHC 34.0 (31.0-35.0) g/dl RDW 15.1 (11.0-16.0) % Plt Count 400 (160-400) X10*3/uL MPV 8.0 L (9.4-12.3) fL Immature Gran % (Auto) 1.6 H (0.0-0.4) % Neut % (Auto) 59.5 (45-73) % Lymph % (Auto) 30.9 (20-40) % [place] % (Auto) 7.9 (2-11) % Eos % (Auto) 0.1 (0-4) % Baso % (Auto) 0.0 (0-2) % Lymph # (Auto) 2.8 (1.2-4.9) X10*3/uL [place] # (Auto) 0.7 (0.1-1.2) X10*3/uL Eos # (Auto) 0.0 (0.0-0.4) X10*3/uL Baso # (Auto) 0.0 (0.0-0.2) X10*3/uL Abs Immat Gran (auto) 0.14 H (0.00-0.03) X10*3/uL Absolute Neuts (auto) 5.3 (2.0-8.3) x10*3/uL Absolute Nucleated RBC 0.000 (0.0-0.012) X10*3/uL Nucleated RBC % (auto) 0.0 (0.0-0.2) /100WBC Sodium 130 L (135-145) mmol/L Potassium 4.4 (3.3-5.1) mmol/L Chloride 99 (96-108) mmol/L Carbon Dioxide 25 (22-29) mmol/L Anion Gap 10 L (12-20) BUN 31 H D (9-16) mg/dL Creatinine 0.91 (0.5-1.4) mg/dL Estim Creat Clear Calc 53.9 Estimated GFR > 60 POC Glucose (60-115) mg/dL Random Glucose 91 (60-115) mg/dL Calcium 8.7 (8.4-10.2) mg/dL Magnesium 2.0 (1.6-2.6) mg/dL Total Bilirubin 0.3 (0.0-1.0) mg/dL Direct Bilirubin 0.2 (0.0-0.5) mg/dL AST 11 (5-31) U/L ALT 13 (0-31) U/L Alkaline Phosphatase 86 D (39-117) U/L Troponin I High Sens 4.3 (<3.5-17.0) ng/L B-Natriuretic Peptide 61 (<100) pg/mL Total Protein 6.2 L (6.5-8.0) g/dL Albumin 3.3 L (3.5-5.0) g/dL Vitamin B12 (200-900) pg/mL Folate (> or = 4.0) ng/mL TSH (0.32-4.0) uIU/mL Urine Color Urine Appearance Urine pH (5.0-8.0) Ur Specific [place] (1.005-1.025) Urine Protein (NEG-TRACE) MG/DL Urine Glucose (UA) (NEG) MG/DL Urine Ketones (NEG) MG/DL Urine Blood (NEG) Urine Nitrite (NEG) Ur Leukocyte Esterase (NEG) Urine RBC (0) /HPF Urine WBC (0-4) /HPF Ur Squamous Epith Cells /LPF Urine Bacteria /LPF Urine Opiates Screen (Not Detect) Urine Fentanyl Screen (Not Detect) Ur Barbiturates Screen (Not Detect) Ur Phencyclidine Scrn (Not Detect) Ur Amphetamines Screen (Not Detect) U Benzodiazepines Scrn (Not Detect) Urine Cocaine Screen (Not Detect) U Marijuana (THC) Screen (Not Detect) Ethyl Alcohol < 10 mg/dL COVID-19 ([facility]) (Negative) COVID-19 Clin Com 04/22/22 04/22/22 04/22/22 Range/Units 10:36 11:47 11:47 WBC (4.8-10.8) X10*3/uL RBC (4.20-5.50) X10*6/uL Hgb (12.0-16.0) g/dl Hct (37.0-47.0) % MCV (80.0-98.0) fL MCH (27.0-33.0) pg MCHC (31.0-35.0) g/dl RDW (11.0-16.0) % Plt Count (160-400) X10*3/uL MPV (9.4-12.3) fL Immature Gran % (Auto) (0.0-0.4) % Neut % (Auto) (45-73) % Lymph % (Auto) (20-40) % [place] % (Auto) (2-11) % Eos % (Auto) (0-4) % Baso % (Auto) (0-2) % Lymph # (Auto) (1.2-4.9) X10*3/uL [place] # (Auto) (0.1-1.2) X10*3/uL Eos # (Auto) (0.0-0.4) X10*3/uL Baso # (Auto) (0.0-0.2) X10*3/uL Abs Immat Gran (auto) (0.00-0.03) X10*3/uL Absolute Neuts (auto) (2.0-8.3) x10*3/uL Absolute Nucleated RBC (0.0-0.012) X10*3/uL Nucleated RBC % (auto) (0.0-0.2) /100WBC Sodium (135-145) mmol/L Potassium (3.3-5.1) mmol/L Chloride (96-108) mmol/L Carbon Dioxide (22-29) mmol/L Anion Gap (12-20) BUN (9-16) mg/dL Creatinine (0.5-1.4) mg/dL Estim Creat Clear Calc Estimated GFR POC Glucose (60-115) mg/dL Random Glucose (60-115) mg/dL Calcium (8.4-10.2) mg/dL Magnesium (1.6-2.6) mg/dL Total Bilirubin (0.0-1.0) mg/dL Direct Bilirubin (0.0-0.5) mg/dL AST (5-31) U/L ALT (0-31) U/L Alkaline Phosphatase (39-117) U/L Troponin I High Sens 3.7 (<3.5-17.0) ng/L B-Natriuretic Peptide (<100) pg/mL Total Protein (6.5-8.0) g/dL Albumin (3.5-5.0) g/dL Vitamin B12 (200-900) pg/mL Folate (> or = 4.0) ng/mL TSH (0.32-4.0) uIU/mL Urine Color YELLOW Urine Appearance HAZY Urine pH 6.0 (5.0-8.0) Ur Specific [place] 1.010 (1.005-1.025) Urine Protein NEG (NEG-TRACE) MG/DL Urine Glucose (UA) NEG (NEG) MG/DL Urine Ketones NEG (NEG) MG/DL Urine Blood 3+ H (NEG) Urine Nitrite NEG (NEG) Ur Leukocyte Esterase NEG (NEG) Urine RBC 15-29 H (0) /HPF Urine WBC 0 (0-4) /HPF Ur Squamous Epith Cells 2+ /LPF Urine Bacteria NONE /LPF Urine Opiates Screen (Not Detect) Urine Fentanyl Screen (Not Detect) Ur Barbiturates Screen (Not Detect) Ur Phencyclidine Scrn (Not Detect) Ur Amphetamines Screen (Not Detect) U Benzodiazepines Scrn (Not Detect) Urine Cocaine Screen (Not Detect) U Marijuana (THC) Screen (Not Detect) Ethyl Alcohol mg/dL COVID-19 ([facility]) Negative (Negative) COVID-19 Clin Com See Note 04/22/22 04/23/22 04/23/22 Range/Units 11:47 07:17 12:07 WBC (4.8-10.8) X10*3/uL RBC (4.20-5.50) X10*6/uL Hgb (12.0-16.0) g/dl Hct (37.0-47.0) % MCV (80.0-98.0) fL MCH (27.0-33.0) pg MCHC (31.0-35.0) g/dl RDW (11.0-16.0) % Plt Count (160-400) X10*3/uL MPV (9.4-12.3) fL Immature Gran % (Auto) (0.0-0.4) % Neut % (Auto) (45-73) % Lymph % (Auto) (20-40) % [place] % (Auto) (2-11) % Eos % (Auto) (0-4) % Baso % (Auto) (0-2) % Lymph # (Auto) (1.2-4.9) X10*3/uL [place] # (Auto) (0.1-1.2) X10*3/uL Eos # (Auto) (0.0-0.4) X10*3/uL Baso # (Auto) (0.0-0.2) X10*3/uL Abs Immat Gran (auto) (0.00-0.03) X10*3/uL Absolute Neuts (auto) (2.0-8.3) x10*3/uL Absolute Nucleated RBC (0.0-0.012) X10*3/uL Nucleated RBC % (auto) (0.0-0.2) /100WBC Sodium (135-145) mmol/L Potassium (3.3-5.1) mmol/L Chloride (96-108) mmol/L Carbon Dioxide (22-29) mmol/L Anion Gap (12-20) BUN (9-16) mg/dL Creatinine (0.5-1.4) mg/dL Estim Creat Clear Calc Estimated GFR POC Glucose 93 167 H (60-115) mg/dL Random Glucose (60-115) mg/dL Calcium (8.4-10.2) mg/dL Magnesium (1.6-2.6) mg/dL Total Bilirubin (0.0-1.0) mg/dL Direct Bilirubin (0.0-0.5) mg/dL AST (5-31) U/L ALT (0-31) U/L Alkaline Phosphatase (39-117) U/L Troponin I High Sens (<3.5-17.0) ng/L B-Natriuretic Peptide (<100) pg/mL Total Protein (6.5-8.0) g/dL Albumin (3.5-5.0) g/dL Vitamin B12 (200-900) pg/mL Folate (> or = 4.0) ng/mL TSH (0.32-4.0) uIU/mL Urine Color Urine Appearance Urine pH (5.0-8.0) Ur Specific [place] (1.005-1.025) Urine Protein (NEG-TRACE) MG/DL Urine Glucose (UA) (NEG) MG/DL Urine Ketones (NEG) MG/DL Urine Blood (NEG) Urine Nitrite (NEG) Ur Leukocyte Esterase (NEG) Urine RBC (0) /HPF Urine WBC (0-4) /HPF Ur Squamous Epith Cells /LPF Urine Bacteria /LPF Urine Opiates Screen Not Detected (Not Detect) Urine Fentanyl Screen Not Detected (Not Detect) Ur Barbiturates Screen Not Detected (Not Detect) Ur Phencyclidine Scrn Not Detected (Not Detect) Ur Amphetamines Screen Not Detected (Not Detect) U Benzodiazepines Scrn Not Detected (Not Detect) Urine Cocaine Screen Not Detected (Not Detect) U Marijuana (THC) Screen POSITIVE H (Not Detect) Ethyl Alcohol mg/dL COVID-19 ([facility]) (Negative) COVID-19 Clin Com 04/23/22 04/23/22 04/23/22 Range/Units 19:57 19:57 21:43 WBC (4.8-10.8) X10*3/uL RBC (4.20-5.50) X10*6/uL Hgb (12.0-16.0) g/dl Hct (37.0-47.0) % MCV (80.0-98.0) fL MCH (27.0-33.0) pg MCHC (31.0-35.0) g/dl RDW (11.0-16.0) % Plt Count (160-400) X10*3/uL MPV (9.4-12.3) fL Immature Gran % (Auto) (0.0-0.4) % Neut % (Auto) (45-73) % Lymph % (Auto) (20-40) % [place] % (Auto) (2-11) % Eos % (Auto) (0-4) % Baso % (Auto) (0-2) % Lymph # (Auto) (1.2-4.9) X10*3/uL [place] # (Auto) (0.1-1.2) X10*3/uL Eos # (Auto) (0.0-0.4) X10*3/uL Baso # (Auto) (0.0-0.2) X10*3/uL Abs Immat Gran (auto) (0.00-0.03) X10*3/uL Absolute Neuts (auto) (2.0-8.3) x10*3/uL Absolute Nucleated RBC (0.0-0.012) X10*3/uL Nucleated RBC % (auto) (0.0-0.2) /100WBC Sodium (135-145) mmol/L Potassium (3.3-5.1) mmol/L Chloride (96-108) mmol/L Carbon Dioxide (22-29) mmol/L Anion Gap (12-20) BUN (9-16) mg/dL Creatinine (0.5-1.4) mg/dL Estim Creat Clear Calc Estimated GFR POC Glucose 149 H (60-115) mg/dL Random Glucose (60-115) mg/dL Calcium (8.4-10.2) mg/dL Magnesium (1.6-2.6) mg/dL Total Bilirubin (0.0-1.0) mg/dL Direct Bilirubin (0.0-0.5) mg/dL AST (5-31) U/L ALT (0-31) U/L Alkaline Phosphatase (39-117) U/L Troponin I High Sens (<3.5-17.0) ng/L B-Natriuretic Peptide (<100) pg/mL Total Protein (6.5-8.0) g/dL Albumin (3.5-5.0) g/dL Vitamin B12 330 (200-900) pg/mL Folate 17.0 (> or = 4.0) ng/mL TSH 2.16 (0.32-4.0) uIU/mL Urine Color Urine Appearance Urine pH (5.0-8.0) Ur Specific [place] (1.005-1.025) Urine Protein (NEG-TRACE) MG/DL Urine Glucose (UA) (NEG) MG/DL Urine Ketones (NEG) MG/DL Urine Blood (NEG) Urine Nitrite (NEG) Ur Leukocyte Esterase (NEG) Urine RBC (0) /HPF Urine WBC (0-4) /HPF Ur Squamous Epith Cells /LPF Urine Bacteria /LPF Urine Opiates Screen (Not Detect) Urine Fentanyl Screen (Not Detect) Ur Barbiturates Screen (Not Detect) Ur Phencyclidine Scrn (Not Detect) Ur Amphetamines Screen (Not Detect) U Benzodiazepines Scrn (Not Detect) Urine Cocaine Screen (Not Detect) U Marijuana (THC) Screen (Not Detect) Ethyl Alcohol mg/dL COVID-19 ([facility]) (Negative) COVID-19 Clin Com <Elvia Us MD - Last Filed: 04/23/22 10:51> Lab Results 04/22/22 04/22/22 04/22/22 Range/Units 10:36 10:36 10:36 WBC 9.0 (4.8-10.8) X10*3/uL RBC 3.43 L (4.20-5.50) X10*6/uL Hgb 9.7 L (12.0-16.0) g/dl Hct 28.5 L (37.0-47.0) % MCV 83.1 (80.0-98.0) fL MCH 28.3 (27.0-33.0) pg MCHC 34.0 (31.0-35.0) g/dl RDW 15.1 (11.0-16.0) % Plt Count 400 (160-400) X10*3/uL MPV 8.0 L (9.4-12.3) fL Immature Gran % (Auto) 1.6 H (0.0-0.4) % Neut % (Auto) 59.5 (45-73) % Lymph % (Auto) 30.9 (20-40) % [place] % (Auto) 7.9 (2-11) % Eos % (Auto) 0.1 (0-4) % Baso % (Auto) 0.0 (0-2) % Lymph # (Auto) 2.8 (1.2-4.9) X10*3/uL [place] # (Auto) 0.7 (0.1-1.2) X10*3/uL Eos # (Auto) 0.0 (0.0-0.4) X10*3/uL Baso # (Auto) 0.0 (0.0-0.2) X10*3/uL Abs Immat Gran (auto) 0.14 H (0.00-0.03) X10*3/uL Absolute Neuts (auto) 5.3 (2.0-8.3) x10*3/uL Absolute Nucleated RBC 0.000 (0.0-0.012) X10*3/uL Nucleated RBC % (auto) 0.0 (0.0-0.2) /100WBC Sodium 130 L (135-145) mmol/L Potassium 4.4 (3.3-5.1) mmol/L Chloride 99 (96-108) mmol/L Carbon Dioxide 25 (22-29) mmol/L Anion Gap 10 L (12-20) BUN 31 H D (9-16) mg/dL Creatinine 0.91 (0.5-1.4) mg/dL Estim Creat Clear Calc 53.9 Estimated GFR > 60 POC Glucose (60-115) mg/dL Random Glucose 91 (60-115) mg/dL Calcium 8.7 (8.4-10.2) mg/dL Magnesium 2.0 (1.6-2.6) mg/dL Total Bilirubin 0.3 (0.0-1.0) mg/dL Direct Bilirubin 0.2 (0.0-0.5) mg/dL AST 11 (5-31) U/L ALT 13 (0-31) U/L Alkaline Phosphatase 86 D (39-117) U/L Troponin I High Sens 4.3 (<3.5-17.0) ng/L B-Natriuretic Peptide 61 (<100) pg/mL Total Protein 6.2 L (6.5-8.0) g/dL Albumin 3.3 L (3.5-5.0) g/dL Vitamin B12 (200-900) pg/mL Folate (> or = 4.0) ng/mL TSH (0.32-4.0) uIU/mL Urine Color Urine Appearance Urine pH (5.0-8.0) Ur Specific [place] (1.005-1.025) Urine Protein (NEG-TRACE) MG/DL Urine Glucose (UA) (NEG) MG/DL Urine Ketones (NEG) MG/DL Urine Blood (NEG) Urine Nitrite (NEG) Ur Leukocyte Esterase (NEG) Urine RBC (0) /HPF Urine WBC (0-4) /HPF Ur Squamous Epith Cells /LPF Urine Bacteria /LPF Urine Opiates Screen (Not Detect) Urine Fentanyl Screen (Not Detect) Ur Barbiturates Screen (Not Detect) Ur Phencyclidine Scrn (Not Detect) Ur Amphetamines Screen (Not Detect) U Benzodiazepines Scrn (Not Detect) Urine Cocaine Screen (Not Detect) U Marijuana (THC) Screen (Not Detect) Ethyl Alcohol < 10 mg/dL COVID-19 ([facility]) (Negative) COVID-19 Clin Com 04/22/22 04/22/22 04/22/22 Range/Units 10:36 11:47 11:47 WBC (4.8-10.8) X10*3/uL RBC (4.20-5.50) X10*6/uL Hgb (12.0-16.0) g/dl Hct (37.0-47.0) % MCV (80.0-98.0) fL MCH (27.0-33.0) pg MCHC (31.0-35.0) g/dl RDW (11.0-16.0) % Plt Count (160-400) X10*3/uL MPV (9.4-12.3) fL Immature Gran % (Auto) (0.0-0.4) % Neut % (Auto) (45-73) % Lymph % (Auto) (20-40) % [place] % (Auto) (2-11) % Eos % (Auto) (0-4) % Baso % (Auto) (0-2) % Lymph # (Auto) (1.2-4.9) X10*3/uL [place] # (Auto) (0.1-1.2) X10*3/uL Eos # (Auto) (0.0-0.4) X10*3/uL Baso # (Auto) (0.0-0.2) X10*3/uL Abs Immat Gran (auto) (0.00-0.03) X10*3/uL Absolute Neuts (auto) (2.0-8.3) x10*3/uL Absolute Nucleated RBC (0.0-0.012) X10*3/uL Nucleated RBC % (auto) (0.0-0.2) /100WBC Sodium (135-145) mmol/L Potassium (3.3-5.1) mmol/L Chloride (96-108) mmol/L Carbon Dioxide (22-29) mmol/L Anion Gap (12-20) BUN (9-16) mg/dL Creatinine (0.5-1.4) mg/dL Estim Creat Clear Calc Estimated GFR POC Glucose (60-115) mg/dL Random Glucose (60-115) mg/dL Calcium (8.4-10.2) mg/dL Magnesium (1.6-2.6) mg/dL Total Bilirubin (0.0-1.0) mg/dL Direct Bilirubin (0.0-0.5) mg/dL AST (5-31) U/L ALT (0-31) U/L Alkaline Phosphatase (39-117) U/L Troponin I High Sens 3.7 (<3.5-17.0) ng/L B-Natriuretic Peptide (<100) pg/mL Total Protein (6.5-8.0) g/dL Albumin (3.5-5.0) g/dL Vitamin B12 (200-900) pg/mL Folate (> or = 4.0) ng/mL TSH (0.32-4.0) uIU/mL Urine Color YELLOW Urine Appearance HAZY Urine pH 6.0 (5.0-8.0) Ur Specific [place] 1.010 (1.005-1.025) Urine Protein NEG (NEG-TRACE) MG/DL Urine Glucose (UA) NEG (NEG) MG/DL Urine Ketones NEG (NEG) MG/DL Urine Blood 3+ H (NEG) Urine Nitrite NEG (NEG) Ur Leukocyte Esterase NEG (NEG) Urine RBC 15-29 H (0) /HPF Urine WBC 0 (0-4) /HPF Ur Squamous Epith Cells 2+ /LPF Urine Bacteria NONE /LPF Urine Opiates Screen (Not Detect) Urine Fentanyl Screen (Not Detect) Ur Barbiturates Screen (Not Detect) Ur Phencyclidine Scrn (Not Detect) Ur Amphetamines Screen (Not Detect) U Benzodiazepines Scrn (Not Detect) Urine Cocaine Screen (Not Detect) U Marijuana (THC) Screen (Not Detect) Ethyl Alcohol mg/dL COVID-19 ([facility]) Negative (Negative) COVID-19 Clin Com See Note 04/22/22 04/23/22 04/23/22 Range/Units 11:47 07:17 12:07 WBC (4.8-10.8) X10*3/uL RBC (4.20-5.50) X10*6/uL Hgb (12.0-16.0) g/dl Hct (37.0-47.0) % MCV (80.0-98.0) fL MCH (27.0-33.0) pg MCHC (31.0-35.0) g/dl RDW (11.0-16.0) % Plt Count (160-400) X10*3/uL MPV (9.4-12.3) fL Immature Gran % (Auto) (0.0-0.4) % Neut % (Auto) (45-73) % Lymph % (Auto) (20-40) % [place] % (Auto) (2-11) % Eos % (Auto) (0-4) % Baso % (Auto) (0-2) % Lymph # (Auto) (1.2-4.9) X10*3/uL [place] # (Auto) (0.1-1.2) X10*3/uL Eos # (Auto) (0.0-0.4) X10*3/uL Baso # (Auto) (0.0-0.2) X10*3/uL Abs Immat Gran (auto) (0.00-0.03) X10*3/uL Absolute Neuts (auto) (2.0-8.3) x10*3/uL Absolute Nucleated RBC (0.0-0.012) X10*3/uL Nucleated RBC % (auto) (0.0-0.2) /100WBC Sodium (135-145) mmol/L Potassium (3.3-5.1) mmol/L Chloride (96-108) mmol/L Carbon Dioxide (22-29) mmol/L Anion Gap (12-20) BUN (9-16) mg/dL Creatinine (0.5-1.4) mg/dL Estim Creat Clear Calc Estimated GFR POC Glucose 93 167 H (60-115) mg/dL Random Glucose (60-115) mg/dL Calcium (8.4-10.2) mg/dL Magnesium (1.6-2.6) mg/dL Total Bilirubin (0.0-1.0) mg/dL Direct Bilirubin (0.0-0.5) mg/dL AST (5-31) U/L ALT (0-31) U/L Alkaline Phosphatase (39-117) U/L Troponin I High Sens (<3.5-17.0) ng/L B-Natriuretic Peptide (<100) pg/mL Total Protein (6.5-8.0) g/dL Albumin (3.5-5.0) g/dL Vitamin B12 (200-900) pg/mL Folate (> or = 4.0) ng/mL TSH (0.32-4.0) uIU/mL Urine Color Urine Appearance Urine pH (5.0-8.0) Ur Specific [place] (1.005-1.025) Urine Protein (NEG-TRACE) MG/DL Urine Glucose (UA) (NEG) MG/DL Urine Ketones (NEG) MG/DL Urine Blood (NEG) Urine Nitrite (NEG) Ur Leukocyte Esterase (NEG) Urine RBC (0) /HPF Urine WBC (0-4) /HPF Ur Squamous Epith Cells /LPF Urine Bacteria /LPF Urine Opiates Screen Not Detected (Not Detect) Urine Fentanyl Screen Not Detected (Not Detect) Ur Barbiturates Screen Not Detected (Not Detect) Ur Phencyclidine Scrn Not Detected (Not Detect) Ur Amphetamines Screen Not Detected (Not Detect) U Benzodiazepines Scrn Not Detected (Not Detect) Urine Cocaine Screen Not Detected (Not Detect) U Marijuana (THC) Screen POSITIVE H (Not Detect) Ethyl Alcohol mg/dL COVID-19 ([facility]) (Negative) COVID-19 Clin Com 04/23/22 04/23/22 04/23/22 Range/Units 19:57 19:57 21:43 WBC (4.8-10.8) X10*3/uL RBC (4.20-5.50) X10*6/uL Hgb (12.0-16.0) g/dl Hct (37.0-47.0) % MCV (80.0-98.0) fL MCH (27.0-33.0) pg MCHC (31.0-35.0) g/dl RDW (11.0-16.0) % Plt Count (160-400) X10*3/uL MPV (9.4-12.3) fL Immature Gran % (Auto) (0.0-0.4) % Neut % (Auto) (45-73) % Lymph % (Auto) (20-40) % [place] % (Auto) (2-11) % Eos % (Auto) (0-4) % Baso % (Auto) (0-2) % Lymph # (Auto) (1.2-4.9) X10*3/uL [place] # (Auto) (0.1-1.2) X10*3/uL Eos # (Auto) (0.0-0.4) X10*3/uL Baso # (Auto) (0.0-0.2) X10*3/uL Abs Immat Gran (auto) (0.00-0.03) X10*3/uL Absolute Neuts (auto) (2.0-8.3) x10*3/uL Absolute Nucleated RBC (0.0-0.012) X10*3/uL Nucleated RBC % (auto) (0.0-0.2) /100WBC Sodium (135-145) mmol/L Potassium (3.3-5.1) mmol/L Chloride (96-108) mmol/L Carbon Dioxide (22-29) mmol/L Anion Gap (12-20) BUN (9-16) mg/dL Creatinine (0.5-1.4) mg/dL Estim Creat Clear Calc Estimated GFR POC Glucose 149 H (60-115) mg/dL Random Glucose (60-115) mg/dL Calcium (8.4-10.2) mg/dL Magnesium (1.6-2.6) mg/dL Total Bilirubin (0.0-1.0) mg/dL Direct Bilirubin (0.0-0.5) mg/dL AST (5-31) U/L ALT (0-31) U/L Alkaline Phosphatase (39-117) U/L Troponin I High Sens (<3.5-17.0) ng/L B-Natriuretic Peptide (<100) pg/mL Total Protein (6.5-8.0) g/dL Albumin (3.5-5.0) g/dL Vitamin B12 330 (200-900) pg/mL Folate 17.0 (> or = 4.0) ng/mL TSH 2.16 (0.32-4.0) uIU/mL Urine Color Urine Appearance Urine pH (5.0-8.0) Ur Specific [place] (1.005-1.025) Urine Protein (NEG-TRACE) MG/DL Urine Glucose (UA) (NEG) MG/DL Urine Ketones (NEG) MG/DL Urine Blood (NEG) Urine Nitrite (NEG) Ur Leukocyte Esterase (NEG) Urine RBC (0) /HPF Urine WBC (0-4) /HPF Ur Squamous Epith Cells /LPF Urine Bacteria /LPF Urine Opiates Screen (Not Detect) Urine Fentanyl Screen (Not Detect) Ur Barbiturates Screen (Not Detect) Ur Phencyclidine Scrn (Not Detect) Ur Amphetamines Screen (Not Detect) U Benzodiazepines Scrn (Not Detect) Urine Cocaine Screen (Not Detect) U Marijuana (THC) Screen (Not Detect) Ethyl Alcohol mg/dL COVID-19 ([facility]) (Negative) COVID-19 Clin Com <ALICIA Chauhan - Last Filed: 04/24/22 08:24> Discharge Plan Discharge Clinical Impression: Fall, Depression <ALICIA Dupree - Last Filed: 04/22/22 17:20> Patient Disposition: Still a Patient <ALICIA Dupree - Last Filed: 04/22/22 17:20> Prescriptions: No Action sennosides [senna] 8.6 mg tablet 1 tab PO BID PRN (Reason: constipation) quetiapine 25 mg tablet 1 tab PO BID thiamine HCl (vitamin B1) 100 mg tablet 1 tab PO QAM omeprazole 40 mg capsule,delayed release(DR/EC) 1 cap PO QAM aspirin 81 mg tablet,delayed release (DR/EC) 1 tab PO QPM acetaminophen 650 mg tablet extended release 1 tab PO BID PRN (Reason: pain) folic acid 1 mg tablet 1 tab PO QAM fluticasone propionate [Flovent HFA] 220 mcg/actuation HFA aerosol inhaler 1 puff PO BID pravastatin 20 mg tablet 1 tab PO QPM furosemide 20 mg tablet 0.5 tab PO DAILY metoprolol succinate 25 mg tablet extended release 24 hr 1 tab PO QAM ipratropium-albuterol 0.5 mg-3 mg(2.5 mg base)/3 mL solution for nebulization 1 amp inhalation Q4H PRN (Reason: Wheezing) albuterol sulfate 90 mcg/actuation HFA aerosol inhaler 1 puff PO QID PRN (Reason: wheezing) montelukast 10 mg tablet 1 tab PO QPM baclofen 20 mg Tablet 20 mg PO DAILY PRN (Reason: Back Pain) ondansetron 4 mg Tablet,Disintegrating 4 mg PO Q12H PRN (Reason: Nausea) <ALICIA Dupree - Last Filed: 04/22/22 17:20>
[2022-04-22 11:17] LABS: Alanine Aminotransferase 13 U/L (0-31); Albumin Level 3.3 g/dL (3.5-5.0); Alkaline Phosphatase 86 U/L (39-117); Anion Gap 10 (12-20); Aspartate Amino Transferase 11 U/L (5-31); Bilirubin Direct 0.2 mg/dL (0.0-0.5); Bilirubin Total 0.3 mg/dL (0.0-1.0); Blood Urea Nitrogen 31 mg/dL (9-16); Calcium 8.7 mg/dL (8.4-10.2); Carbon Dioxide 25 mmol/L (22-29); Chloride 99 mmol/L (96-108); Creatinine Clr Calc Pharmacy 53.9; Estimated Glomerular Filt Rate > 60; Glucose Random 91 mg/dL (60-115); Potassium 4.4 mmol/L (3.3-5.1); Sodium 130 mmol/L (135-145); Total Protein 6.2 g/dL (6.5-8.0)
[2022-04-22 11:49] LABS: Ethanol < 10 mg/dL
[2022-04-22] MEDS: Albuterol/Iprat 2.5/0.5MG 3 ML AMPUL.NEB INHALE (11:59)
[2022-04-22 12:06] LABS: Appearance Urine HAZY; Color Urine YELLOW; Glucose Urine UA NEG (NEG); Leukocyte Esterase Urine NEG (NEG); Nitrite Urine NEG (NEG); UACC Culture Trigger NO; Urine Blood 3+ (NEG); Urine Ketones NEG (NEG); Urine Protein NEG (NEG-TRACE)
[2022-04-22 12:16] LABS: Squamous Epithelial Cell Urine 2+ /LPF; WBC Urine 0 /HPF (0-4)
--- NOTE | 2022-04-22 12:27 | PC.NURSE ---
[facility] at bedside
[2022-04-22 12:38] LABS: Amphetamine Screen Urine Not Detected (Not Detect); Barbiturates, Urine Not Detected (Not Detect); Benzodiazepines Screen Urine Not Detected (Not Detect); Cannabinoid Screen Urine POSITIVE (Not Detect); Cocaine Screen Urine Not Detected (Not Detect); Fentanyl, urine Not Detected (Not Detect); Opiate Screen Urine Not Detected (Not Detect); Phencyclidine Screen Urine Not Detected (Not Detect)
[2022-04-22 12:44] LABS: Troponin-I High Sensitivity 3.7 ng/L (<3.5-17.0)
--- NOTE | 2022-04-22 15:22 | PHA.MEDREC ---
Pharmacy Consult ? Medication Reconciliation Pharmacy has completed the medication reconciliation. List obtained from [facility] in [place].
[2022-04-22] MEDS: Pravastatin Sodium 20 MG TABLET PO (20:42)
[2022-04-22] MEDS: QUEtiapine Fumarate 25 MG TABLET PO (20:42)
[2022-04-22] MEDS: Montelukast Sodium 10 MG TABLET PO (20:42)
[2022-04-22] MEDS: Aspirin Enteric Coated 81 MG TABLET.DR PO (20:42)
--- NOTE | 2022-04-22 21:02 | PC.NURSE ---
pt c/o dyspnea, pt VSS, respirator contacted for nebulizer tx.
[2022-04-22] MEDS: Albuterol Sulfate 90 MCG 8 GM INHALER 2 PUFF INHALE (21:29)
[2022-04-23] VITALS (10 sets, daily range): BP systolic 123–143; BP diastolic 59–85; PULSE 78–103; RESP 13–18; TEMP 36.6–36.9; O2SAT 94–100
[2022-04-23] MEDS: traZODone HCL 50 MG TABLET PO (00:22)
[2022-04-23] MEDS: Acetaminophen 325 MG TABLET 650 MG PO ×2 (00:32→20:20)
[2022-04-23] MEDS: Albuterol Sulfate 90 MCG 8 GM INHALER 2 PUFF INHALE (04:05)
[2022-04-23 07:21] LABS: Glucose, Whole Blood 93 mg/dL (60-115)
[2022-04-23] MEDS: Fluticasone Propionate 250 MCG BLST.W.DEV 1 PUFF INHALE ×2 (08:12→19:59)
[2022-04-23] MEDS: Furosemide 20 MG TABLET 10 MG PO (10:10)
[2022-04-23] MEDS: Folic Acid 1 MG TABLET PO (10:10)
[2022-04-23] MEDS: Thiamine HCL 100 MG TABLET PO (10:11)
[2022-04-23] MEDS: QUEtiapine Fumarate 25 MG TABLET PO ×2 (10:11→20:21)
[2022-04-23] MEDS: Metoprolol Succinate ER 25 MG TAB.ER.24H PO (10:11)
[2022-04-23 12:11] LABS: Glucose, Whole Blood 167 mg/dL (60-115)
--- NOTE | 2022-04-23 13:00 | PC.NURSE ---
pt seen by engineering psychologist ([email or web address]). pt aware of plan of care.
--- NOTE | 2022-04-23 13:16 | P.CNPS_ITS ---
History of Present Illness Date of Service: 04/23/22 Chief Complaint: Depression with SI Reason for Consult: Depression with SI Requesting physician: Eri Johnson Discussed with referring provider: Yes (CARE Team and nursing) Sources of Information: patient interviewed and chart reviewed HPI Narrative: 66 yo female, history of bipolar disorder, dementia, alcohol and cannabis use disorders, COPD, CAD, DM, HTN, CHF, DANO, OA and current hyponatremia and anemia who reported feeling lightheaded this a.m. and is s/p reported fall in the bathroom. Pt is medically cleared by ER team. She reports sx of increased depression x 2 days with SI-took 's razor and attempted cuts without injury. Tells team she experiences visual hallucinations of ghosts and that her wheelchair moves when in the house without physical presence. Met with pt who is on one to one and who is resting without distress. Pt reports family discord with daughter and inability to resolve this. She is tearful acknowledges SI and gesture attempt. Reports sleep latency sx, daily cannabis, denies alcohol. Per team pt will be admitted to a geriatric psychiatry unit. Currently on Seroquel 25 mg bid Past Psychiatric History: Previous regime: Klonopin 1 mg bid, Seroquel 50 mg bid and Citalopram 40 mg daily. Reports daily cannabis, Medical Evaluation Reviewed: Yes Review of Systems Reports behavioral changes, Reports confusion and Reports memory loss Psychiatric: Reports abnormal sleep pattern, Reports anxiety, Reports behavioral changes, Reports confusion, Reports depression, Reports difficulty concentrating, Reports hopelessness, Reports anhedonia, Reports memory loss, Reports paranoia, Reports visual hallucinations and Reports suicidal ideation [facility] Medical History (Updated 04/23/22 @ 17:15 by Brook Hernandez APRN) Acute hyponatremia Alcohol use disorder Bipolar 1 disorder Bipolar I disorder Cannabis use disorder, moderate, dependence Chronic hyponatremia Congestive heart failure COPD (chronic obstructive pulmonary disease) Coronary artery disease Dementia Diabetes Hypertension Korsakoff disease Osteoarthritis Schizophrenia Sleep apnea Surgical History Hx of appendectomy Substance History: cannabis daily hx of alcohol use Trauma History: affirms Diagnostics Vital Signs (24Hr): Vital Signs - 24 hr 04/22/22 14:11 04/22/22 14:13 04/22/22 14:14 Temperature Pulse Rate 86 77 99 Respiratory Rate Blood Pressure 141/73 H 151/67 H 150/58 H Pulse Oximetry Oxygen Delivery Method 04/22/22 14:26 04/22/22 21:29 04/23/22 00:00 Temperature Pulse Rate 78 90 103 H Respiratory Rate 16 16 Blood Pressure 136/61 143/77 H Pulse Oximetry 99 97 Oxygen Delivery Method Room Air Room Air 04/23/22 01:57 04/23/22 03:58 04/23/22 05:54 Temperature Pulse Rate 92 87 84 Respiratory Rate 13 13 Blood Pressure 123/59 L 140/73 H 138/75 Pulse Oximetry 97 99 100 Oxygen Delivery Method Room Air Room Air Room Air 04/23/22 08:07 04/23/22 08:12 04/23/22 10:06 Temperature 97.8 F Pulse Rate 93 103 H 83 Respiratory Rate 16 18 16 Blood Pressure 143/73 H 134/70 Pulse Oximetry 97 100 Oxygen Delivery Method Room Air Room Air 04/23/22 12:11 Temperature 98 F Pulse Rate 78 Respiratory Rate 16 Blood Pressure 127/67 Pulse Oximetry 99 Oxygen Delivery Method Room Air BMI result Body Mass Index 25.7 Labs Results: 04/22/22 10:36 04/22/22 10:36 Labs: Laboratory Results - last 48 hr 04/22/22 04/22/22 04/22/22 10:36 10:36 10:36 WBC 9.0 RBC 3.43 L Hgb 9.7 L Hct 28.5 L MCV 83.1 MCH 28.3 MCHC 34.0 RDW 15.1 Plt Count 400 MPV 8.0 L Immature Gran % (Auto) 1.6 H Neut % (Auto) 59.5 Lymph % (Auto) 30.9 Russell % (Auto) 7.9 Eos % (Auto) 0.1 Baso % (Auto) 0.0 Lymph # (Auto) 2.8 Russell # (Auto) 0.7 Eos # (Auto) 0.0 Baso # (Auto) 0.0 Abs Immat Gran (auto) 0.14 H Absolute Neuts (auto) 5.3 Absolute Nucleated RBC 0.000 Nucleated RBC % (auto) 0.0 Sodium 130 L Potassium 4.4 Chloride 99 Carbon Dioxide 25 Anion Gap 10 L BUN 31 H D Creatinine 0.91 Estim Creat Clear Calc 53.9 Estimated GFR > 60 POC Glucose Random Glucose 91 Calcium 8.7 Magnesium 2.0 Total Bilirubin 0.3 Direct Bilirubin 0.2 AST 11 ALT 13 Alkaline Phosphatase 86 D Troponin I High Sens 4.3 B-Natriuretic Peptide 61 Total Protein 6.2 L Albumin 3.3 L Urine Color Urine Appearance Urine pH Ur Specific Turner Urine Protein Urine Glucose (UA) Urine Ketones Urine Blood Urine Nitrite Ur Leukocyte Esterase Urine RBC Urine WBC Ur Squamous Epith Cells Urine Bacteria Urine Opiates Screen Urine Fentanyl Screen Ur Barbiturates Screen Ur Phencyclidine Scrn Ur Amphetamines Screen U Benzodiazepines Scrn Urine Cocaine Screen U Marijuana (THC) Screen Ethyl Alcohol < 10 COVID-19 (ZAKIA) COVID-19 Correlor Com 04/22/22 04/22/22 04/22/22 10:36 11:47 11:47 WBC RBC Hgb Hct MCV MCH MCHC RDW Plt Count MPV Immature Gran % (Auto) Neut % (Auto) Lymph % (Auto) Russell % (Auto) Eos % (Auto) Baso % (Auto) Lymph # (Auto) Russell # (Auto) Eos # (Auto) Baso # (Auto) Abs Immat Gran (auto) Absolute Neuts (auto) Absolute Nucleated RBC Nucleated RBC % (auto) Sodium Potassium Chloride Carbon Dioxide Anion Gap BUN Creatinine Estim Creat Clear Calc Estimated GFR POC Glucose Random Glucose Calcium Magnesium Total Bilirubin Direct Bilirubin AST ALT Alkaline Phosphatase Troponin I High Sens 3.7 B-Natriuretic Peptide Total Protein Albumin Urine Color YELLOW Urine Appearance HAZY Urine pH 6.0 Ur Specific Turner 1.010 Urine Protein NEG Urine Glucose (UA) NEG Urine Ketones NEG Urine Blood 3+ H Urine Nitrite NEG Ur Leukocyte Esterase NEG Urine RBC 15-29 H Urine WBC 0 Ur Squamous Epith Cells 2+ Urine Bacteria NONE Urine Opiates Screen Urine Fentanyl Screen Ur Barbiturates Screen Ur Phencyclidine Scrn Ur Amphetamines Screen U Benzodiazepines Scrn Urine Cocaine Screen U Marijuana (THC) Screen Ethyl Alcohol COVID-19 (ZAKIA) Negative COVID-19 Correlor Com See Note 04/22/22 04/23/22 04/23/22 11:47 07:17 12:07 WBC RBC Hgb Hct MCV MCH MCHC RDW Plt Count MPV Immature Gran % (Auto) Neut % (Auto) Lymph % (Auto) Russell % (Auto) Eos % (Auto) Baso % (Auto) Lymph # (Auto) Russell # (Auto) Eos # (Auto) Baso # (Auto) Abs Immat Gran (auto) Absolute Neuts (auto) Absolute Nucleated RBC Nucleated RBC % (auto) Sodium Potassium Chloride Carbon Dioxide Anion Gap BUN Creatinine Estim Creat Clear Calc Estimated GFR POC Glucose 93 167 H Random Glucose Calcium Magnesium Total Bilirubin Direct Bilirubin AST ALT Alkaline Phosphatase Troponin I High Sens B-Natriuretic Peptide Total Protein Albumin Urine Color Urine Appearance Urine pH Ur Specific Turner Urine Protein Urine Glucose (UA) Urine Ketones Urine Blood Urine Nitrite Ur Leukocyte Esterase Urine RBC Urine WBC Ur Squamous Epith Cells Urine Bacteria Urine Opiates Screen Not Detected Urine Fentanyl Screen Not Detected Ur Barbiturates Screen Not Detected Ur Phencyclidine Scrn Not Detected Ur Amphetamines Screen Not Detected U Benzodiazepines Scrn Not Detected Urine Cocaine Screen Not Detected U Marijuana (THC) Screen POSITIVE H Ethyl Alcohol COVID-19 (ZAKIA) COVID-19 Clin Com Imaging Radiology Impressions: ITS Impressions Chest X-Ray 04/22/22 10:20 IMPRESSION: No acute cardiopulmonary process. Cervical Spine CT 04/22/22 11:24 IMPRESSION: 1. Straightening of the normal cervical lordosis may be secondary to positioning and/or muscle spasm. 2. Multilevel degenerative changes without overt acute abnormality. Head CT 04/22/22 11:25 IMPRESSION: No acute intracranial pathology. Mental Status Exam Mental Status Exam Patient Appearance: Fatigued Patient Orientation: Person, Place and Situation Level of Consciousness: Alert Patient Behavior: Dependent, Talkative, Cooperative, Asleep, Anxious, Sedated, Fatigued, Distractible, Confused, Isolative, Good Eye Contact and Crying Mood Description: Depressed Affect Description: Flat Patient Cognition Impaired: Yes Ability to Follow Directions: Fair Speech Pattern: Perseverating, Spontaneous Speech and Soft-Spoken Memory Description: Remote Impaired Hallucinations: Visual Delusions: Paranoid Ideation Perceptual Disturbances: Depersonalization Thought Process: Distracted, Rumination and Confusion Thought Content: positive for Icard, positive for Circumstantial, positive for Perseveration, positive for Preoccupation and positive for Suicidal Ideation Depressive Symptoms: Increased Anxiety, Insomnia, Difficulty Sleeping, Isolating-Friends/Family and Thoughts of /Suicide Judgement: Poor Medications Medications Current Medications Acetaminophen (Acetaminophen 325 Mg Tablet) 650 mg PO BID PRN PRN Reason: pain Last Admin: 04/23/22 00:32 Dose: 650 mg Albuterol Sulfate (Albuterol Sulfate 90 Mcg 8 Gm Inhaler) 2 puff INHALE QID PRN PRN Reason: Wheezing Last Admin: 04/23/22 04:05 Dose: 2 puff Albuterol/Ipratropium (Albuterol/Iprat 2.5/0.5mg 3 Ml Ampul.Neb) 3 ml INHALE Q4H PRN PRN Reason: Wheezing Aspirin (Aspirin Enteric Coated 81 Mg Tablet.) 81 mg PO BEDTIME [facility] Last Admin: 04/22/22 20:42 Dose: 81 mg Baclofen (Baclofen 20 Mg Tablet) 20 mg PO DAILY PRN PRN Reason: Back Pain Fluticasone Propionate (Fluticasone Propionate 250 Mcg Blst.W.Dev) 1 puff INHALE RBID [facility] Last Admin: 04/23/22 08:12 Dose: 1 puff Folic Acid (Folic Acid 1 Mg Tablet) 1 mg PO DAILY [facility] Last Admin: 04/23/22 10:10 Dose: 1 mg Furosemide (Furosemide 20 Mg Tablet) 10 mg PO DAILY [facility]; Protocol Last Admin: 04/23/22 10:10 Dose: 10 mg Metoprolol Succinate (Metoprolol Succinate Er 25 Mg Tab.Er.24h) 25 mg PO DAILY [facility]; Protocol Last Admin: 04/23/22 10:11 Dose: 25 mg Montelukast Sodium (Montelukast Sodium 10 Mg Tablet) 10 mg PO BEDTIME [facility] Last Admin: 04/22/22 20:42 Dose: 10 mg Omeprazole (Omeprazole 40 Mg Capsule.) 40 mg PO DAILY@0630 [facility] Last Admin: 04/23/22 06:05 Dose: Not Given Ondansetron HCl (Ondansetron Odt 4 Mg Tab.Rapdis) 4 mg TRANSLINGU Q12H PRN PRN Reason: Nausea Pharmacy Consult (Consult Rx Perform Med Rec) 1 each MISCELLANE ONCE PRN PRN Reason: Consult order Pravastatin Sodium (Pravastatin Sodium 20 Mg Tablet) 20 mg PO BEDTIME [facility] Last Admin: 04/22/22 20:42 Dose: 20 mg Quetiapine Fumarate (Quetiapine Fumarate 25 Mg Tablet) 25 mg PO BID [facility] Last Admin: 04/23/22 10:11 Dose: 25 mg Senna (Sennosides 8.6 Mg Tablet) 8.6 mg PO BID PRN PRN Reason: constipation Thiamine HCl (Thiamine Hcl 100 Mg Tablet) 100 mg PO DAILY [facility] Last Admin: 04/23/22 10:11 Dose: 100 mg Allergies Allergies Allergy/AdvReac Type Severity Reaction Status Date / Time advair Allergy Unknown Unknown Uncoded 03/29/22 01:21 From PAXIL AdvReac Intermediate NAUSEA & Uncoded 03/29/22 01:21 VOMITING Assessment & Plan Assessment & Plan (1) Bipolar 1 disorder: Status: Acute Code(s): F31.9 - Bipolar disorder, unspecified (2) Cannabis use disorder, moderate, dependence: Status: Acute Code(s): F12.20 - Cannabis dependence, uncomplicated Plan 66 yo female, hx of bipolar disorder, dementia, alcohol and cannabis use disorders, presents s/p fall reporting SI with plan to cut her wrists with 's razor. Team is currently in process of search for in pt geriatric psychiatry bed. Plan: Continue Seroquel Seroquel 25 mg bid prn agitation B12, Folate, TSH MVI i tab daily I spent minutes with the patient and/or on the patient floor today, greater than?50% of which was spent counseling/coordinating care. Patient educated on: therapeutic strategies Informed Consent: does not understand
--- NOTE | 2022-04-23 14:50 | PC.NURSE ---
suresh (rn, [facility], ) [place] [facility] [place] on pt status of [facility] bed search.
--- NOTE | 2022-04-23 15:00 | PC.NURSE ---
Pt seen this date for individual OT session. Upon approach pt bright and cheerful and agreeable to engage in conversation as well as complete therapeutic activity sticker puzzle. 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 She reports her assists her with ADL's and her primary mode of mobility with via w/c.
[2022-04-23] MEDS: Pravastatin Sodium 20 MG TABLET PO (20:20)
[2022-04-23] MEDS: Montelukast Sodium 10 MG TABLET PO (20:21)
[2022-04-23] MEDS: Aspirin Enteric Coated 81 MG TABLET.DR PO (20:21)
[2022-04-23 20:46] LABS: Thyroid Stimulating Hormone 2.16 uIU/mL (0.32-4.0)
[2022-04-23 21:02] LABS: Vitamin B12 330 pg/mL (200-900)
[2022-04-23 21:47] LABS: Glucose, Whole Blood 149 mg/dL (60-115)
[2022-04-24] VITALS (7 sets, daily range): BP systolic 109–146; BP diastolic 63–100; PULSE 82–97; RESP 18; TEMP 36.7–37.2; O2SAT 94–100
--- NOTE | 2022-04-24 02:07 | PC.NURSE ---
Patient alert and oriented x 1. self. Pleasant states, she is not trying to kill herself. Patient stand by assist to commode. Patient had a large bowel movement 04/24 at around 1am. Patient c/o back pain states its from bed medicated with some relief. Awaiting placement to crisis bed. Will continue with plan of care.
[2022-04-24] MEDS: Omeprazole 40 MG CAPSULE.DR PO (05:31)
[2022-04-24] MEDS: Fluticasone Propionate 250 MCG BLST.W.DEV 1 PUFF INHALE (07:51)
[2022-04-24] MEDS: Furosemide 20 MG TABLET 10 MG PO (08:13)
[2022-04-24] MEDS: Metoprolol Succinate ER 25 MG TAB.ER.24H PO (08:14)
[2022-04-24] MEDS: Multivitamin TABLET 1 TAB PO (08:14)
[2022-04-24] MEDS: Thiamine HCL 100 MG TABLET PO (08:15)
[2022-04-24] MEDS: QUEtiapine Fumarate 25 MG TABLET PO ×2 (08:15→23:13)
[2022-04-24] MEDS: Folic Acid 1 MG TABLET PO (08:15)
--- NOTE | 2022-04-24 15:47 | MHC.OT.ID ---
[address] [phone] F: [phone] Occupational Therapy Inpatient Daily Note Start Time: End Time: Visit Duration: 30 minutes Billable Time: Pain Score: Pain Location: Self-Care Feeding: Grooming: Washing: Dressing: Toileting: Functional Mobility Bed Mobility: Transfers: Ambulation: Pt reports that she uses a walker for ambulation in the home and a manual wheelchair outside of the home, dependent for propulsion Therapeutic Activities IADL/Homecare: Balance: Therapeutic Exercise: Cognition: Pt scored a 7 on the MOCA, however she would have benefitted from Albanian languge interpreter deaf though her level of disorientation would remain constant Assessment Assessment: Pt presents in ED s/p fall at home. Pt reports pain in shoulder, lower back, head, denies that she struck her head. Pt unable to quantify pain to this OT, asks for pain medication. Pt engaged readily with this OT and student. Verbal communication had labile affect, teary to euphoria, tangential and non chronological. Pt reported incontinence as a major concern for her. Plan Plan of Care: Reported MOCA score to Care Team D/C Today: Electronically Signed By: Khushi Awad OTR/L Reviewed/agree with student documentation: Therapist:
[2022-04-24 16:23] LABS: COVID-19 Test Negative (Negative)
--- NOTE | 2022-04-24 17:21 | ECG_ITS ---
Test Reason : SYNCOPE Blood Pressure : / mmHG Vent. Rate : 090 BPM Atrial Rate : 090 BPM P-R Int : 136 ms QRS Dur : 086 ms QT Int : 354 ms P-R-T Axes : 060 009 058 degrees QTc Int : 433 ms Artifact in tracing Normal sinus rhythm Normal ECG When compared with ECG of 22-APR-2022 10:34, No significant changes seen Referred By: Ludy Saldivar Electronically Signed By:LYNDA GLEZ
[2022-04-24 17:28] LABS: Glucose, Whole Blood 67 mg/dL (60-115)
[2022-04-24] MEDS: Aspirin Enteric Coated 81 MG TABLET.DR PO (23:12)
[2022-04-24] MEDS: Montelukast Sodium 10 MG TABLET PO (23:13)
[2022-04-24] MEDS: Pravastatin Sodium 20 MG TABLET PO (23:13)
[2022-04-24] MEDS: traZODone HCL 50 MG TABLET PO (23:13)
--- NOTE | 2022-04-25 | ECG_ITS ---
Test Reason : cp Blood Pressure : / mmHG Vent. Rate : 093 BPM Atrial Rate : 093 BPM P-R Int : 132 ms QRS Dur : 086 ms QT Int : 358 ms P-R-T Axes : 049 -02 056 degrees QTc Int : 445 ms Normal sinus rhythm Nonspecific T wave abnormality Abnormal ECG When compared with ECG of 24-APR-2022 17:18, No significant change was found Referred By: Erika Mariano Electronically Signed By:CAMPOS KELLER MD
[2022-04-25 00:21] VITALS: BP 138/98; PULSE 91; RESP 16; TEMP 36.5; O2SAT 97
--- NOTE | 2022-04-25 01:22 | PC.ADMIT ---
66 y.o female with a hx of Unspecified depressive disorder arrived to the unit from the [facility] ED at approx. 2145 via wheel chair. Pt had signed a CV (polish version) while in the ED. The pt appeared with an elated mood and affect, telling funny stories to staff and laughing loudly. The pt was unstable on her feet when requested to get up from the wheel chair, she reported that she does not ambulate without an assistive device,so a walker was provided. The pt was cooperative with part of the interview, expressing tiredness just before the admission assessments were completed. When taken to her room, she became very tearful asking this RN to take her off the unit,expressing a need to be home and unhappy about the fact that there was no TV in the room. A Central African speaking staff was able to deescalate her - pt prefers communicating in Central African although she understands and speaks adequate Irish. The pt remained restless until HS scheduled meds were provided. The pt told this RN that the reason for her admission was because she tried to cut herself with a razor. When asked why, the pt reported that her daughter had accused the pt of sleeping with her boyfriend and so she felt so sad and resorted to wanting to end her life. Per N crisis report, the pt reported increasing depression and thought about cutting herself in a suicide attempt.The pt denied SI/HI/AVH at the time of admission. TOX screen + Marijuana, pt reports Nicotine and ETOH use daily, no signs of withdrawal noted. She reports hx of Asthma, Arthritis (knees) and Hypertension. Admission orders were completed prior, hospitalist consulted, pt had experienced syncope while in the ED, had been medically cleared before arrival to the unit. VSS on admission with some variation in BP levels while sitted and standing (138/98 and 109/93). Treatment plan completed, pt reported feeling safe on the unit at this time, on 15 min safety checks.
[2022-04-25] MEDS: QUEtiapine Fumarate 25 MG TABLET PO ×2 (03:03→09:11)
[2022-04-25] MEDS: Acetaminophen 325 MG TABLET 650 MG PO ×3 (05:17→23:40)
[2022-04-25 06:00] VITALS: BP 158/72; PULSE 80; RESP 16; TEMP 36.4; O2SAT 97
[2022-04-25 08:36] LABS: Alanine Aminotransferase 10 U/L (0-31); Albumin Level 3.1 g/dL (3.5-5.0); Alkaline Phosphatase 87 U/L (39-117); Anion Gap 14 (12-20); Aspartate Amino Transferase 11 U/L (5-31); Bilirubin Total 0.2 mg/dL (0.0-1.0); Blood Urea Nitrogen 33 mg/dL (9-16); Calcium 8.9 mg/dL (8.4-10.2); Carbon Dioxide 28 mmol/L (22-29); Chloride 99 mmol/L (96-108); Cholesterol 130 mg/dL; Creatinine Clr Calc Pharmacy 52.2; Estimated Glomerular Filt Rate 59; Glucose Fasting 116 mg/dL (60-99); HDL Cholesterol 44 mg/dL; LDL Cholesterol Calculated 67 mg/dl; Potassium 5.1 mmol/L (3.3-5.1); Sodium 136 mmol/L (135-145); Total Protein 5.7 g/dL (6.5-8.0); Triglycerides 98 mg/dL
[2022-04-25] MEDS: Metoprolol Succinate ER 25 MG TAB.ER.24H PO (09:10)
[2022-04-25] MEDS: Folic Acid 1 MG TABLET PO (09:10)
[2022-04-25] MEDS: Multivitamin TABLET 1 TAB PO (09:11)
[2022-04-25] MEDS: Thiamine HCL 100 MG TABLET PO (09:11)
[2022-04-25] MEDS: Furosemide 20 MG TABLET 10 MG PO (09:11)
--- NOTE | 2022-04-25 10:48 | P.HPPS_ITS ---
HPI Date of Service: 04/25/22 Chief Complaint: mood disorder Sources of Information: patient interviewed, chart reviewed and crisis/core team assessment reviewed HPI Subjective Notes: Conditional Voluntary and 3 Day Narrative: The patient is a 58-year-old Greek female, , mother of 2 adult children, retired, living with her and family with several ancillary services such as VNA and psychiatric services in the community, with a prior history of depression never admitted into the hospital. The patient was brought to the emergency room since her noticed that she was trying to kill herself by cutting with a razor blade. The patient was rushed to the emergency room, says by crisis and transferring to this facility for psychiatric stabilization. On interview, the patient adamantly denies suicidal ideation she stated that she called her daughter and she had already changed her number refused to talk with her, apparently several years ago she had a conflict with her and she was accused of sleeping with her daughter's boyfriend. She felt this Maksim, angry and impulsively wanted to cut herself. She adamantly denies psychotic symptoms but her mood remains slightly unstable, very labile. Today, she asked to go back home and she is going to sign a 3 day notice letter. Past Psychiatric History: Previous regime: Klonopin 1 mg bid, Seroquel 50 mg bid and Citalopram 40 mg daily. Reports daily cannabis, Medical Evaluation Reviewed: Hospitalist Dashawn Pending [facility] Medical History Acute hyponatremia Alcohol use disorder Bipolar 1 disorder Bipolar I disorder Cannabis use disorder, moderate, dependence Chronic hyponatremia Congestive heart failure COPD (chronic obstructive pulmonary disease) Coronary artery disease Dementia Diabetes Hypertension Korsakoff disease Osteoarthritis Schizophrenia Sleep apnea Surgical History Hx of appendectomy Family History: Denies Social History: , retired, mother of 2 children, with good social support. Substance History: Denies substance abusel but she came positive with cannabis Trauma History: affirms Diagnostics Vital Signs (24Hr): Vital Signs - 24 hr 04/24/22 15:53 04/24/22 23:52 04/25/22 00:21 Temperature 98.7 F 97.7 F Pulse Rate 82 93 91 Respiratory Rate 18 16 Blood Pressure 122/69 109/63 138/98 H Pulse Oximetry 97 97 Oxygen Delivery Method Room Air Room Air 04/25/22 06:00 Temperature 97.6 F Pulse Rate 80 Respiratory Rate 16 Blood Pressure 158/72 H Pulse Oximetry 97 Oxygen Delivery Method Room Air BMI result Body Mass Index 25.7 Labs Results: 04/22/22 10:36 04/25/22 07:42 Labs: Laboratory Results - last 48 hr 04/23/22 04/23/22 04/23/22 07:17 12:07 19:57 Sodium Potassium Chloride Carbon Dioxide Anion Gap BUN Creatinine Estim Creat Clear Calc Estimated GFR POC Glucose 93 167 H Fasting Glucose Calcium Total Bilirubin AST ALT Alkaline Phosphatase Troponin I High Sens Total Protein Albumin Triglycerides Cholesterol LDL Cholesterol, Calc HDL Cholesterol Vitamin B12 330 Folate 17.0 TSH COVID-19 (ZAKIA) COVID-19 [employer] Com 04/23/22 04/23/22 04/24/22 19:57 21:43 15:55 Sodium Potassium Chloride Carbon Dioxide Anion Gap BUN Creatinine Estim Creat Clear Calc Estimated GFR POC Glucose 149 H Fasting Glucose Calcium Total Bilirubin AST ALT Alkaline Phosphatase Troponin I High Sens Total Protein Albumin Triglycerides Cholesterol LDL Cholesterol, Calc HDL Cholesterol Vitamin B12 Folate TSH 2.16 COVID-19 (ZAKIA) Negative COVID-19 Clin Com See Note 04/24/22 04/24/22 04/25/22 17:24 17:36 07:42 Sodium 136 Potassium 5.1 Chloride 99 Carbon Dioxide 28 Anion Gap 14 BUN 33 H Creatinine 0.94 Estim Creat Clear Calc 52.2 Estimated GFR 59 POC Glucose 67 Fasting Glucose 116 H Calcium 8.9 Total Bilirubin 0.2 AST 11 ALT 10 Alkaline Phosphatase 87 Troponin I High Sens 4.0 Total Protein 5.7 L Albumin 3.1 L Triglycerides 98 Cholesterol 130 LDL Cholesterol, Calc 67 HDL Cholesterol 44 Vitamin B12 Folate TSH COVID-19 (ZAKIA) COVID-19 Clin Com Imaging Radiology Impressions: ITS Impressions Chest X-Ray 04/22/22 10:20 IMPRESSION: No acute cardiopulmonary process. Cervical Spine CT 04/22/22 11:24 IMPRESSION: 1. Straightening of the normal cervical lordosis may be secondary to positioning and/or muscle spasm. 2. Multilevel degenerative changes without overt acute abnormality. Head CT 04/22/22 11:25 IMPRESSION: No acute intracranial pathology. Meds/Allergies Meds Home Medications Medication Instructions Recorded Confirmed Type sennosides 8.6 mg tablet (senna) 1 tab PO BID PRN constipation 02/04/21 04/22/22 History ipratropium 0.5 mg-albuterol 3 mg 1 amp inhalation Q4H PRN Wheezing 11/24/21 History (2.5 mg base)/3 mL nebulization soln acetaminophen 650 mg 1 tab PO BID PRN pain 03/21/22 04/22/22 History tablet,extended release aspirin 81 mg tablet,delayed 1 tab PO QPM 03/21/22 04/22/22 History release fluticasone propionate 220 1 puff PO BID 03/21/22 04/22/22 History mcg/actuation HFA aerosol inhaler (Flovent HFA) folic acid 1 mg tablet 1 tab PO QAM 03/21/22 04/22/22 History furosemide 20 mg tablet 0.5 tab PO DAILY 03/21/22 04/22/22 History metoprolol succinate 25 mg 1 tab PO QAM 03/21/22 04/22/22 History tablet,extended release 24 hr omeprazole 40 mg capsule,delayed 1 cap PO QAM 03/21/22 04/22/22 History release pravastatin 20 mg tablet 1 tab PO QPM 03/21/22 04/22/22 History quetiapine 25 mg tablet 1 tab PO BID 03/21/22 04/22/22 History thiamine HCl (vitamin B1) 100 mg 1 tab PO QAM 03/21/22 04/22/22 History tablet albuterol sulfate 90 mcg/actuation 1 puff PO QID PRN wheezing 04/22/22 04/22/22 History aerosol inhaler baclofen 20 mg tablet 20 mg PO DAILY PRN Back Pain 04/22/22 04/22/22 History montelukast 10 mg tablet 1 tab PO QPM 04/22/22 04/22/22 History ondansetron 4 mg disintegrating 4 mg PO Q12H PRN Nausea 04/22/22 04/22/22 History tablet Allergies Allergies Allergy/AdvReac Type Severity Reaction Status Date / Time advair Allergy Unknown Unknown Uncoded 03/29/22 01:21 From PAXIL AdvReac Intermediate NAUSEA & Uncoded 03/29/22 01:21 VOMITING Mental Status Exam Mental Status Exam Patient Appearance: Appropriate Patient Orientation: Person, Place and Situation Level of Consciousness: Awake Patient Behavior: Appropriate and Cooperative Mood Description: Withdrawn Affect Description: Labile Ability to Follow Directions: Good Speech Pattern: Clear Hallucinations: None Delusions: Not Present Thought Process: Distracted Thought Content: positive for Circumstantial Judgement: Poor Assessment & Plan Assessment & Plan (1) Bipolar 1 disorder: Status: Acute Code(s): F31.9 - Bipolar disorder, unspecified (2) Cannabis use disorder, moderate, dependence: Status: Acute Code(s): F12.20 - Cannabis dependence, uncomplicated Plan The patient is an elderly Greek female, bilingual with a long history of bipolar disorder and cannabis use disorder, admitted for abruptly tried to kill herself with a razor blade after a conflict with her daughter. Plan 1. Gather collateral information. 2. Increase Seroquel up to 50 mg p.o. b.i.d. to target mood lability. 3. Keep rest the same. Patient educated on: diagnosis Informed Consent: further education needed Reason for continued inpatient stay Substantial Risk for: inability to function, rapid decompensation and med/psych decompensation
[2022-04-25] MEDS: Fluticasone Propionate 250 MCG BLST.W.DEV 1 PUFF INHALE ×2 (12:48→20:53)
[2022-04-25] MEDS: Albuterol Sulfate 90 MCG 8 GM INHALER 2 PUFF INHALE ×2 (13:11→22:10)
--- NOTE | 2022-04-25 18:06 | PC.NURSE ---
Patient presents as cheerful and happy throughout the shift. Denies SI/HI. Reports safe on unit. Attending groups and interacting appropriately with peers. Patient requested prn inhaler x1 this shift for wheezing with good effect. Ambulating independently with walker.
[2022-04-25 19:55] VITALS: BP 135/72; PULSE 102; RESP 16; TEMP 36.6; O2SAT 97
[2022-04-25] MEDS: Montelukast Sodium 10 MG TABLET PO (20:47)
[2022-04-25] MEDS: QUEtiapine Fumarate 50 MG TABLET PO (20:47)
[2022-04-25] MEDS: Pravastatin Sodium 20 MG TABLET PO (20:47)
[2022-04-25] MEDS: Aspirin Enteric Coated 81 MG TABLET.DR PO (20:47)
[2022-04-25] MEDS: traZODone HCL 50 MG TABLET PO ×2 (20:47→23:42)
[2022-04-25] MEDS: LORazepam 1 MG TABLET PO (22:20)
[2022-04-25 22:23] VITALS: PULSE 104; RESP 20; O2SAT 99
[2022-04-25] MEDS: Albuterol/Iprat 2.5/0.5MG 3 ML AMPUL.NEB INHALE (22:23)
[2022-04-25 22:34] LABS: MANUAL DIFF FLAG NO
[2022-04-25 22:36] LABS: Basophils Percent Auto 0.2 % (0-2); Eosinophils Absolute Auto 0.1 X10*3/uL (0.0-0.4); Eosinophils Percent Auto 0.7 % (0-4); Hematocrit 29.2 % (37.0-47.0); Hemoglobin 9.5 g/dl (12.0-16.0); Imm Gran Abs Auto 0.16 X10*3/uL (0.00-0.03); Imm Gran Pct Auto 1.8 % (0.0-0.4); Lymphocytes Absolute Auto 2.7 X10*3/uL (1.2-4.9); Lymphocytes Percent Auto 29.7 % (20-40); Mean Corpuscular HGB Conc 32.5 g/dl (31.0-35.0); Mean Corpuscular Hemoglobin 27.9 pg (27.0-33.0); Mean Corpuscular Volume 85.6 fL (80.0-98.0); Mean Platelet Volume 8.4 fL (9.4-12.3); Monocytes Absolute Auto 0.9 X10*3/uL (0.1-1.2); Monocytes Percent Auto 10.5 % (2-11); Neutrophils Absolute Auto 5.1 x10*3/uL (2.0-8.3); Neutrophils Percent Auto 57.1 % (45-73); Platelet Count 377 X10*3/uL (160-400); Red Blood Count 3.41 X10*6/uL (4.20-5.50); Red Cell Distribution Width 15.6 % (11.0-16.0)
[2022-04-25 22:40] LABS: VBG Base Excess 2.3 mmol/L; VBG HCO3 25 mmol/L (22-26); VBG pCO2 35 mmHg; VBG pH 7.46 (7.32-7.43); VBG pO2 75 mmHg
[2022-04-25 22:43] LABS: Venous Blood Gas Refer to POC result
[2022-04-25 22:56] LABS: Anion Gap 17 (12-20); Blood Urea Nitrogen 42 mg/dL (9-16); Calcium 8.6 mg/dL (8.4-10.2); Carbon Dioxide 23 mmol/L (22-29); Chloride 97 mmol/L (96-108); Creatinine Clr Calc Pharmacy 41.2; Estimated Glomerular Filt Rate 45; Glucose Random 208 mg/dL (60-115); Potassium 5.2 mmol/L (3.3-5.1); Sodium 132 mmol/L (135-145)
[2022-04-25] MEDS: methylPREDNISolone Sod Succ 40 MG/ML VIAL IVPUSH (23:00)
[2022-04-25 23:04] LABS: B Type Natriuretic Peptide 16 pg/mL (<100); Troponin-I High Sensitivity 3.5 ng/L (<3.5-17.0)
--- NOTE | 2022-04-25 23:23 | PM.EVENT ---
Event Note Date of Service: 04/25/22 Event Note: a rapid response was called on this pt for severe sob. Pt reports that she has hx of asthma and is now having difficulty breathing and catching her breath. on my exam, she is severely anxious , tachypneic, reports that she ate a crackert and started coughing immediately after and having sob. reports no cough or sputum production prior to now. Pt is sating 96% on RA, tachycardic with HR in the 110s, On lung exam, pt has decreased air movement, no wheezing. Given duoneb treatment and PO ativan with improvement of symptoms. labs xray were obtained which were negative. given degree of symptoms i was going to transfer pt to medical floor and admit underobservation but pt refused adamantly and wanted to stay in geriatic unit. Cxr shows no acute findings. will give one dose IV solumedrol, prescribe PO prednisone and scheduled as well as prn duoneb
--- NOTE | 2022-04-26 00:46 | PC.NURSE ---
At approx 2210, pt called out to staff, she was experiencing difficulty breathing, appeared panicked and was requesting for inhaler, received with minimal effect, pt continued to cough, some phlegm noted, pt passed out for about 3 seconds and right back to being alert but still clearly SOB. Rapid Response called by 2214, O2 (2L) applied, updraft Neb treatment done, chest Xray and EKG done, Ativan PO admin. Physician/hospitalist, respiratory therapy, nursing Sterile Supply Technician, Phlebotomy, BRAID FOLDER team present. Orders to transfer pt to med floor done, pt taken to med floor by 2239, solumedrol administered while there, pt requested to be brought back to S1, drywall application supervisor notified unit RN and wheeled her back to the unit. On return (approx.2309), pt's condition was significantly improved - pt appeared much calmer, negative for SOB, alert and oriented, asked for painkiller for hip pain 6/10 and trazodone to sleep, both received with good effect. Pt in bed by 0.
[2022-04-26 06:00] VITALS: BP 143/63; PULSE 78; TEMP 36.6; O2SAT 97
[2022-04-26] MEDS: Omeprazole 40 MG CAPSULE.DR PO (06:14)
[2022-04-26] MEDS: Fluticasone Propionate 250 MCG BLST.W.DEV 1 PUFF INHALE ×2 (08:36→20:37)
[2022-04-26] MEDS: Multivitamin TABLET 1 TAB PO (08:37)
[2022-04-26] MEDS: Furosemide 20 MG TABLET 10 MG PO (08:37)
[2022-04-26] MEDS: Folic Acid 1 MG TABLET PO (08:38)
[2022-04-26] MEDS: QUEtiapine Fumarate 50 MG TABLET PO ×3 (08:38→20:37)
[2022-04-26] MEDS: Thiamine HCL 100 MG TABLET PO (08:38)
[2022-04-26] MEDS: predniSONE 20 MG TABLET 40 MG PO (08:39)
[2022-04-26] MEDS: Metoprolol Succinate ER 25 MG TAB.ER.24H PO (08:41)
[2022-04-26] MEDS: Albuterol Sulfate 90 MCG 8 GM INHALER 2 PUFF INHALE ×2 (08:43→17:55)
--- NOTE | 2022-04-26 10:59 | P.PNPSI_ITS ---
Subjective Subjective Date of Service: 04/26/22 Reason For Visit: mood disorder Subjective Notes: Conditional Voluntary and 3 Day Interim History: The nursing staff reported that yesterday the patient had an asthma attack and she was extremely anxious we needed to nearly transfer her to Medicine but later she got better. The patient denies new symptoms she states that she suffers from asthma and she needs her medication. On interview she denies new symptoms, still with very labile mood Mental Status Exam Mental Status Exam Patient Appearance: Well Grooomed Patient Orientation: Person and Situation Level of Consciousness: Awake Patient Behavior: Guarded and Cooperative Mood Description: Constricted Affect Description: Labile Patient Cognition Impaired: Yes Ability to Follow Directions: Good Speech Pattern: Clear Hallucinations: None Delusions: Not Present Thought Process: Distracted and Linear Thought Content: positive for [place] and positive for [place] of Content Judgement: Fair Diagnostics Vital Signs (24Hr): Vital Signs - 24 hr 04/25/22 19:55 04/25/22 22:23 04/26/22 06:00 Temperature 97.9 F 97.8 F Pulse Rate 102 H 104 H 78 Respiratory Rate 16 20 Blood Pressure 135/72 143/63 H Pulse Oximetry 97 97 Oxygen Delivery Method Room Air Room Air BMI result Body Mass Index 25.7 Labs Results: 04/25/22 22:29 04/25/22 22:29 Labs: Laboratory Results - last 48 hr 04/24/22 04/24/22 04/24/22 15:55 17:24 17:36 WBC RBC Hgb Hct MCV MCH MCHC RDW Plt Count MPV Immature Gran % (Auto) Neut % (Auto) Lymph % (Auto) [place] % (Auto) Eos % (Auto) Baso % (Auto) Lymph # (Auto) [place] # (Auto) Eos # (Auto) Baso # (Auto) Abs Immat Gran (auto) Absolute Neuts (auto) Absolute Nucleated RBC Nucleated RBC % (auto) VBG pH VBG pCO2 VBG pO2 VBG HCO3 VBG O2 Saturation VBG Base Excess Sodium Potassium Chloride Carbon Dioxide Anion Gap BUN Creatinine Estim Creat Clear Calc Estimated GFR POC Glucose 67 Random Glucose Fasting Glucose Calcium Total Bilirubin AST ALT Alkaline Phosphatase Troponin I High Sens 4.0 B-Natriuretic Peptide Total Protein Albumin Triglycerides Cholesterol LDL Cholesterol, Calc HDL Cholesterol COVID-19 ([facility]) Negative COVID-19 Clin Com See Note 07/30/22 07/30/22 07/30/22 07:42 22:29 22:29 WBC 9.0 RBC 3.41 L Hgb 9.5 L Hct 29.2 L MCV 85.6 MCH 27.9 MCHC 32.5 RDW 15.6 Plt Count 377 MPV 8.4 L Immature Gran % (Auto) 1.8 H Neut % (Auto) 57.1 Lymph % (Auto) 29.7 [place] % (Auto) 10.5 Eos % (Auto) 0.7 Baso % (Auto) 0.2 Lymph # (Auto) 2.7 [place] # (Auto) 0.9 Eos # (Auto) 0.1 Baso # (Auto) 0.0 Abs Immat Gran (auto) 0.16 H Absolute Neuts (auto) 5.1 Absolute Nucleated RBC 0.000 Nucleated RBC % (auto) 0.0 VBG pH VBG pCO2 VBG pO2 VBG HCO3 VBG O2 Saturation VBG Base Excess Sodium 136 132 L Potassium 5.1 5.2 H Chloride 99 97 Carbon Dioxide 28 23 Anion Gap 14 17 BUN 33 H 42 H Creatinine 0.94 1.19 Estim Creat Clear Calc 52.2 41.2 Estimated GFR 59 45 POC Glucose Random Glucose 208 H Fasting Glucose 116 H Calcium 8.9 8.6 Total Bilirubin 0.2 AST 11 ALT 10 Alkaline Phosphatase 87 Troponin I High Sens B-Natriuretic Peptide Total Protein 5.7 L Albumin 3.1 L Triglycerides 98 Cholesterol 130 LDL Cholesterol, Calc 67 HDL Cholesterol 44 COVID-19 ([facility]) COVID-19 Clin Com 04/25/22 04/25/22 22:29 22:34 WBC RBC Hgb Hct MCV MCH MCHC RDW Plt Count MPV Immature Gran % (Auto) Neut % (Auto) Lymph % (Auto) [place] % (Auto) Eos % (Auto) Baso % (Auto) Lymph # (Auto) [place] # (Auto) Eos # (Auto) Baso # (Auto) Abs Immat Gran (auto) Absolute Neuts (auto) Absolute Nucleated RBC Nucleated RBC % (auto) VBG pH 7.46 H VBG pCO2 35 VBG pO2 75 VBG HCO3 25 VBG O2 Saturation 96.0 VBG Base Excess 2.3 Sodium Potassium Chloride Carbon Dioxide Anion Gap BUN Creatinine Estim Creat Clear Calc Estimated GFR POC Glucose Random Glucose Fasting Glucose Calcium Total Bilirubin AST ALT Alkaline Phosphatase Troponin I High Sens 3.5 B-Natriuretic Peptide 16 Total Protein Albumin Triglycerides Cholesterol LDL Cholesterol, Calc HDL Cholesterol COVID-19 ([facility]) COVID-19 Clin Com Imaging Radiology Impressions: ITS Impressions Chest X-Ray 04/22/22 10:20 IMPRESSION: No acute cardiopulmonary process. Cervical Spine CT 04/22/22 11:24 IMPRESSION: 1. Straightening of the normal cervical lordosis may be secondary to positioning and/or muscle spasm. 2. Multilevel degenerative changes without overt acute abnormality. Head CT 04/22/22 11:25 IMPRESSION: No acute intracranial pathology. Chest X-Ray 04/25/22 22:40 IMPRESSION: No acute pulmonary process. Medications Medications Current Medications Acetaminophen (Acetaminophen 325 Mg Tablet) 650 mg PO BID PRN PRN Reason: pain Last Admin: 04/25/22 23:40 Dose: 650 mg Albuterol Sulfate (Albuterol Sulfate 90 Mcg 8 Gm Inhaler) 2 puff INHALE QID PRN PRN Reason: Wheezing Last Admin: 04/26/22 08:43 Dose: 2 puff Albuterol/Ipratropium (Albuterol/Iprat 2.5/0.5mg 3 Ml Ampul.Neb) 3 ml INHALE Q4H PRN PRN Reason: Wheezing Last Admin: 04/25/22 22:23 Dose: 3 ml Albuterol/Ipratropium (Albuterol/Iprat 2.5/0.5mg 3 Ml Ampul.Neb) 3 ml INHALE Q4H PRN PRN Reason: Shortness of Breath/Wheezing Albuterol/Ipratropium (Albuterol/Iprat 2.5/0.5mg 3 Ml Ampul.Neb) 3 ml INHALE RQ4H WHILE AWAKE [facility] Last Admin: 04/26/22 07:33 Dose: Not Given Aspirin (Aspirin Enteric Coated 81 Mg Tablet.Dr) 81 mg PO BEDTIME [facility] Last Admin: 04/25/22 20:47 Dose: 81 mg Baclofen (Baclofen 20 Mg Tablet) 20 mg PO DAILY PRN PRN Reason: Back Pain Fluticasone Propionate (Fluticasone Propionate 250 Mcg Blst.W.Dev) 1 puff INHALE RBID [facility] Last Admin: 04/26/22 08:36 Dose: 1 puff Folic Acid (Folic Acid 1 Mg Tablet) 1 mg PO DAILY [facility] Last Admin: 04/26/22 08:38 Dose: 1 mg Furosemide (Furosemide 20 Mg Tablet) 10 mg PO DAILY [facility]; Protocol Last Admin: 04/26/22 08:37 Dose: 10 mg Metoprolol Succinate (Metoprolol Succinate Er 25 Mg Tab.Er.24h) 25 mg PO DAILY [facility]; Protocol Last Admin: 04/26/22 08:41 Dose: 25 mg Montelukast Sodium (Montelukast Sodium 10 Mg Tablet) 10 mg PO BEDTIME [facility] Last Admin: 04/25/22 20:47 Dose: 10 mg Multivitamins/Vitamin C (Multivitamin Tablet) 1 tab PO DAILY [facility] Last Admin: 04/26/22 08:37 Dose: 1 tab Omeprazole (Omeprazole 40 Mg Capsule.Dr) 40 mg PO DAILY@0630 [facility] Last Admin: 04/26/22 06:14 Dose: 40 mg Ondansetron HCl (Ondansetron Odt 4 Mg Tab.Rapdis) 4 mg TRANSLINGU Q12H PRN PRN Reason: Nausea Pharmacy Consult (Consult Rx Perform Med Rec) 1 each MISCELLANE ONCE PRN PRN Reason: Consult order Pravastatin Sodium (Pravastatin Sodium 20 Mg Tablet) 20 mg PO BEDTIME [facility] Last Admin: 04/25/22 20:47 Dose: 20 mg Prednisone (Prednisone 20 Mg Tablet) 40 mg PO DAILY [facility] Last Admin: 04/26/22 08:39 Dose: 40 mg Quetiapine Fumarate (Quetiapine Fumarate 25 Mg Tablet) 25 mg PO BID PRN PRN Reason: agitation, anxiety Last Admin: 04/25/22 03:03 Dose: 25 mg Quetiapine Fumarate (Quetiapine Fumarate 50 Mg Tablet) 50 mg PO BID [facility] Last Admin: 04/26/22 08:38 Dose: 50 mg Senna (Sennosides 8.6 Mg Tablet) 8.6 mg PO BID PRN PRN Reason: constipation Thiamine HCl (Thiamine Hcl 100 Mg Tablet) 100 mg PO DAILY [facility] Last Admin: 04/26/22 08:38 Dose: 100 mg Trazodone HCl (Trazodone Hcl 50 Mg Tablet) 50 mg PO BEDTIME PRN PRN Reason: Insomnia Last Admin: 04/25/22 23:42 Dose: 50 mg Allergies Allergies Allergy/AdvReac Type Severity Reaction Status Date / Time advair Allergy Unknown Unknown Uncoded 03/29/22 01:21 From PAXIL AdvReac Intermediate NAUSEA & Uncoded 03/29/22 01:21 VOMITING Assessment & Plan Assessment & Plan (1) Bipolar 1 disorder: Status: Acute Code(s): F31.9 - Bipolar disorder, unspecified (2) Cannabis use disorder, moderate, dependence: Status: Acute Code(s): F12.20 - Cannabis dependence, uncomplicated Plan The patient is an elderly [place] female, bilingual with a long history of bipolar disorder and cannabis use disorder, admitted for abruptly tried to kill herself with a razor blade after a conflict with her daughter. Plan 1. Gather collateral information. 2. Increase Seroquel up to 50 mg p.o. t.i.d. to target mood lability. 3. Keep rest the same. I spent ___20___ minutes with the patient and/or on the patient floor today, greater than?50% of which was spent counseling/coordinating care. Reason for contiued inpatient stay Substantial Risk for: inability to function, rapid decompensation and med/psych decompensation
[2022-04-26] MEDS: Acetaminophen 325 MG TABLET 650 MG PO (16:32)
[2022-04-26 20:00] VITALS: BP 141/68; PULSE 97; RESP 18; TEMP 36.6
[2022-04-26] MEDS: traZODone HCL 50 MG TABLET PO ×2 (20:37→23:09)
[2022-04-26] MEDS: Aspirin Enteric Coated 81 MG TABLET.DR PO (20:37)
[2022-04-26] MEDS: Montelukast Sodium 10 MG TABLET PO (20:37)
[2022-04-26] MEDS: Pravastatin Sodium 20 MG TABLET PO (20:37)
[2022-04-26] MEDS: Albuterol/Iprat 2.5/0.5MG 3 ML AMPUL.NEB INHALE (21:20)
[2022-04-26 21:22] VITALS: PULSE 87; RESP 16; O2SAT 99
[2022-04-26] MEDS: Baclofen 20 MG TABLET PO (23:09)
[2022-04-26] MEDS: QUEtiapine Fumarate 25 MG TABLET PO (23:10)
[2022-04-27] MEDS: Acetaminophen 325 MG TABLET 650 MG PO ×2 (02:44→16:29)
[2022-04-27] MEDS: Omeprazole 40 MG CAPSULE.DR PO (05:42)
[2022-04-27] MEDS: Furosemide 20 MG TABLET 10 MG PO (08:37)
[2022-04-27] MEDS: predniSONE 20 MG TABLET 40 MG PO (08:38)
[2022-04-27] MEDS: Multivitamin TABLET 1 TAB PO (08:38)
[2022-04-27] MEDS: Folic Acid 1 MG TABLET PO (08:38)
[2022-04-27] MEDS: QUEtiapine Fumarate 50 MG TABLET PO ×3 (08:38→21:03)
[2022-04-27] MEDS: Thiamine HCL 100 MG TABLET PO (08:38)
[2022-04-27] MEDS: Albuterol Sulfate 90 MCG 8 GM INHALER 2 PUFF INHALE ×2 (08:39→21:06)
[2022-04-27] MEDS: Fluticasone Propionate 250 MCG BLST.W.DEV 1 PUFF INHALE (08:39)
[2022-04-27] MEDS: Metoprolol Succinate ER 25 MG TAB.ER.24H PO (08:44)
[2022-04-27 08:45] VITALS: BP 131/62; PULSE 85; RESP 17; TEMP 36.9; O2SAT 98
--- NOTE | 2022-04-27 11:43 | HO.PSYCHPN ---
Subjective Subjective Date of Service: 04/27/22 Reason For Visit: mood disorder Subjective Notes: Conditional Voluntary and 3 Day Interim History: The nursing staff reports that the patient has been pleasant and cooperative, with very labile mood with periods of laughing and periods of crying. On interview the patient denies new symptoms, she wants to be discharged as soon as possible, she signed a 3 day notice. We will try to gather collateral information and call her family. Mental Status Exam Mental Status Exam Patient Appearance: Well Grooomed Patient Orientation: Person and Situation Level of Consciousness: Awake Patient Behavior: Cooperative Mood Description: Withdrawn Affect Description: Labile Patient Cognition Impaired: Yes Ability to Follow Directions: Good Speech Pattern: Clear Hallucinations: None Delusions: Not Present Thought Process: Distracted Thought Content: positive for [place] Judgement: Fair Diagnostics Vital Signs (24Hr): Vital Signs - 24 hr 04/26/22 21:22 04/26/22 20:00 Temperature 97.8 F Pulse Rate 87 97 Respiratory Rate 16 18 Blood Pressure 141/68 H BMI result Body Mass Index 25.7 Labs Results: 04/25/22 22:29 04/25/22 22:29 Labs: Laboratory Results - last 48 hr 04/25/22 04/25/22 04/25/22 22:29 22:29 22:29 WBC 9.0 RBC 3.41 L Hgb 9.5 L Hct 29.2 L MCV 85.6 MCH 27.9 MCHC 32.5 RDW 15.6 Plt Count 377 MPV 8.4 L Immature Gran % (Auto) 1.8 H Neut % (Auto) 57.1 Lymph % (Auto) 29.7 [place] % (Auto) 10.5 Eos % (Auto) 0.7 Baso % (Auto) 0.2 Lymph # (Auto) 2.7 [place] # (Auto) 0.9 Eos # (Auto) 0.1 Baso # (Auto) 0.0 Abs Immat Gran (auto) 0.16 H Absolute Neuts (auto) 5.1 Absolute Nucleated RBC 0.000 Nucleated RBC % (auto) 0.0 VBG pH VBG pCO2 VBG pO2 VBG HCO3 VBG O2 Saturation VBG Base Excess Sodium 132 L Potassium 5.2 H Chloride 97 Carbon Dioxide 23 Anion Gap 17 BUN 42 H Creatinine 1.19 Estim Creat Clear Calc 41.2 Estimated GFR 45 Random Glucose 208 H Calcium 8.6 Troponin I High Sens 3.5 B-Natriuretic Peptide 16 04/25/22 22:34 WBC RBC Hgb Hct MCV MCH MCHC RDW Plt Count MPV Immature Gran % (Auto) Neut % (Auto) Lymph % (Auto) [place] % (Auto) Eos % (Auto) Baso % (Auto) Lymph # (Auto) [place] # (Auto) Eos # (Auto) Baso # (Auto) Abs Immat Gran (auto) Absolute Neuts (auto) Absolute Nucleated RBC Nucleated RBC % (auto) VBG pH 7.46 H VBG pCO2 35 VBG pO2 75 VBG HCO3 25 VBG O2 Saturation 96.0 VBG Base Excess 2.3 Sodium Potassium Chloride Carbon Dioxide Anion Gap BUN Creatinine Estim Creat Clear Calc Estimated GFR Random Glucose Calcium Troponin I High Sens B-Natriuretic Peptide Imaging Radiology Impressions: ITS Impressions Chest X-Ray 04/22/22 10:20 IMPRESSION: No acute cardiopulmonary process. Cervical Spine CT 04/22/22 11:24 IMPRESSION: 1. Straightening of the normal cervical lordosis may be secondary to positioning and/or muscle spasm. 2. Multilevel degenerative changes without overt acute abnormality. Head CT 04/22/22 11:25 IMPRESSION: No acute intracranial pathology. Chest X-Ray 04/25/22 22:40 IMPRESSION: No acute pulmonary process. Medications Medications Current Medications Acetaminophen (Acetaminophen 325 Mg Tablet) 650 mg PO BID PRN PRN Reason: pain Last Admin: 04/27/22 02:44 Dose: 650 mg Albuterol Sulfate (Albuterol Sulfate 90 Mcg 8 Gm Inhaler) 2 puff INHALE QID PRN PRN Reason: Wheezing Last Admin: 04/27/22 08:39 Dose: 2 puff Albuterol/Ipratropium (Albuterol/Iprat 2.5/0.5mg 3 Ml Ampul.Neb) 3 ml INHALE Q4H PRN PRN Reason: Wheezing Last Admin: 04/25/22 22:23 Dose: 3 ml Albuterol/Ipratropium (Albuterol/Iprat 2.5/0.5mg 3 Ml Ampul.Neb) 3 ml INHALE Q4H PRN PRN Reason: Shortness of Breath/Wheezing Albuterol/Ipratropium (Albuterol/Iprat 2.5/0.5mg 3 Ml Ampul.Neb) 3 ml INHALE RQ4H WHILE AWAKE [facility] Last Admin: 04/26/22 21:20 Dose: 3 ml Aspirin (Aspirin Enteric Coated 81 Mg Tablet.) 81 mg PO BEDTIME [facility] Last Admin: 04/26/22 20:37 Dose: 81 mg Baclofen (Baclofen 20 Mg Tablet) 20 mg PO DAILY PRN PRN Reason: Back Pain Last Admin: 04/26/22 23:09 Dose: 20 mg Fluticasone Propionate (Fluticasone Propionate 250 Mcg Blst.W.Dev) 1 puff INHALE RBID [facility] Last Admin: 04/27/22 08:39 Dose: 1 puff Folic Acid (Folic Acid 1 Mg Tablet) 1 mg PO DAILY [facility] Last Admin: 04/27/22 08:38 Dose: 1 mg Furosemide (Furosemide 20 Mg Tablet) 10 mg PO DAILY [facility]; Protocol Last Admin: 04/27/22 08:37 Dose: 10 mg Metoprolol Succinate (Metoprolol Succinate Er 25 Mg Tab.Er.24h) 25 mg PO DAILY [facility]; Protocol Last Admin: 04/27/22 08:44 Dose: 25 mg Montelukast Sodium (Montelukast Sodium 10 Mg Tablet) 10 mg PO BEDTIME [facility] Last Admin: 04/26/22 20:37 Dose: 10 mg Multivitamins/Vitamin C (Multivitamin Tablet) 1 tab PO DAILY [facility] Last Admin: 04/27/22 08:38 Dose: 1 tab Omeprazole (Omeprazole 40 Mg Capsule.) 40 mg PO DAILY@0630 [facility] Last Admin: 04/27/22 05:42 Dose: 40 mg Ondansetron HCl (Ondansetron Odt 4 Mg Tab.Rapdis) 4 mg TRANSLINGU Q12H PRN PRN Reason: Nausea Pharmacy Consult (Consult Rx Perform Med Rec) 1 each MISCELLANE ONCE PRN PRN Reason: Consult order Pravastatin Sodium (Pravastatin Sodium 20 Mg Tablet) 20 mg PO BEDTIME [facility] Last Admin: 04/26/22 20:37 Dose: 20 mg Prednisone (Prednisone 20 Mg Tablet) 40 mg PO DAILY [facility] Last Admin: 04/27/22 08:38 Dose: 40 mg Quetiapine Fumarate (Quetiapine Fumarate 25 Mg Tablet) 25 mg PO BID PRN PRN Reason: agitation, anxiety Last Admin: 04/26/22 23:10 Dose: 25 mg Quetiapine Fumarate (Quetiapine Fumarate 50 Mg Tablet) 50 mg PO TID [facility] Last Admin: 04/27/22 08:38 Dose: 50 mg Senna (Sennosides 8.6 Mg Tablet) 8.6 mg PO BID PRN PRN Reason: constipation Thiamine HCl (Thiamine Hcl 100 Mg Tablet) 100 mg PO DAILY [facility] Last Admin: 04/27/22 08:38 Dose: 100 mg Trazodone HCl (Trazodone Hcl 50 Mg Tablet) 50 mg PO BEDTIME PRN PRN Reason: Insomnia Last Admin: 04/26/22 23:09 Dose: 50 mg Allergies Allergies Allergy/AdvReac Type Severity Reaction Status Date / Time advair Allergy Unknown Unknown Uncoded 03/29/22 01:21 From PAXIL AdvReac Intermediate NAUSEA & Uncoded 03/29/22 01:21 VOMITING Assessment & Plan Assessment & Plan (1) Bipolar 1 disorder: Status: Acute Code(s): F31.9 - Bipolar disorder, unspecified (2) Cannabis use disorder, moderate, dependence: Status: Acute Code(s): F12.20 - Cannabis dependence, uncomplicated Plan The patient is an elderly [place] female, bilingual with a long history of bipolar disorder and cannabis use disorder, admitted for abruptly tried to kill herself with a razor blade after a conflict with her daughter. Plan 1. Gather collateral information. 2. Increase Seroquel up to 50 mg p.o. t.i.d. to target mood lability. 3. Keep rest the same. I spent ____20__ minutes with the patient and/or on the patient floor today, greater than?50% of which was spent counseling/coordinating care. Reason for contiued inpatient stay Substantial Risk for: inability to function, rapid decompensation and med/psych decompensation
--- NOTE | 2022-04-27 14:47 | PC.RT ---
Patient has been intermittently refusing her Respiratory Nebulizer Treatments. She refused all day yesterday and several more times since being in the ER and then Admitted to [facility] Psych. If this pt continues to refuse, MD should switch this patients nebs to PRN. Thank You, Hebert Roa Resp Snuff Blender
[2022-04-27] MEDS: Albuterol/Iprat 2.5/0.5MG 3 ML AMPUL.NEB INHALE ×2 (14:53→15:06)
[2022-04-27 14:54] VITALS: PULSE 76; RESP 20; O2SAT 100
[2022-04-27 18:00] VITALS: BP 127/62; PULSE 101; RESP 18; TEMP 36.8; O2SAT 98
[2022-04-27] MEDS: Aspirin Enteric Coated 81 MG TABLET.DR PO (21:02)
[2022-04-27] MEDS: Pravastatin Sodium 20 MG TABLET PO (21:02)
[2022-04-27] MEDS: Montelukast Sodium 10 MG TABLET PO (21:02)
[2022-04-27] MEDS: traZODone HCL 50 MG TABLET PO (21:03)
[2022-04-28] MEDS: Acetaminophen 325 MG TABLET 650 MG PO ×2 (02:06→15:17)
[2022-04-28] MEDS: Baclofen 20 MG TABLET PO (02:07)
[2022-04-28] MEDS: Omeprazole 40 MG CAPSULE.DR PO (06:41)
[2022-04-28 07:00] VITALS: BP 126/73; PULSE 87; RESP 17; TEMP 36.2; O2SAT 98
[2022-04-28] MEDS: Thiamine HCL 100 MG TABLET PO (08:11)
[2022-04-28] MEDS: QUEtiapine Fumarate 50 MG TABLET PO ×3 (08:11→20:06)
[2022-04-28] MEDS: predniSONE 20 MG TABLET 40 MG PO (08:11)
[2022-04-28] MEDS: Folic Acid 1 MG TABLET PO (08:11)
[2022-04-28] MEDS: Metoprolol Succinate ER 25 MG TAB.ER.24H PO (08:11)
[2022-04-28] MEDS: Nicotine 14 MG PATCH.TD24 TRANSDERMA (08:11)
[2022-04-28] MEDS: Multivitamin TABLET 1 TAB PO (08:12)
[2022-04-28] MEDS: Furosemide 20 MG TABLET 10 MG PO (08:12)
[2022-04-28] MEDS: Albuterol/Iprat 2.5/0.5MG 3 ML AMPUL.NEB INHALE (09:27)
[2022-04-28] MEDS: Fluticasone Propionate 250 MCG BLST.W.DEV 1 PUFF INHALE ×2 (09:29→20:07)
[2022-04-28 09:30] VITALS: PULSE 92; RESP 17; O2SAT 99
--- NOTE | 2022-04-28 13:59 | P.PNPSI_ITS ---
Subjective Subjective Date of Service: 04/28/22 Reason For Visit: mood disorder Subjective Notes: Conditional Voluntary and 3 Day Interim History: The nursing staff reported the patient has been pleasant and cooperative, fully compliant with treatment. The marriage and family social worker contact the [facility] and apparently they have been drinking more alcohol at certain point there were thinking at that she was having Wernicke- Korsakoff syndrome. The occupational therapist did a Murray she scored 13/30. Today with the marriage and family social worker we contact her and they reported a long history of conflicts with her biological children who lives in [place]. Later on, it was disclosed that the patient was engage in a substance abuse program because she was abusing of alcohol and cannabis. On interview the patient denies new symptoms she feels fine and she looks with a more stable mood. No evidence of side effects with increase of Seroquel. Mental Status Exam Mental Status Exam Patient Appearance: Well Grooomed Patient Orientation: Person and Situation Level of Consciousness: Awake Patient Behavior: Appropriate Mood Description: Calm Affect Description: Calm and Constricted Patient Cognition Impaired: Yes Ability to Follow Directions: Good Speech Pattern: Clear Hallucinations: None Delusions: Not Present Thought Process: Distracted Thought Content: positive for Circumstantial Judgement: Fair Diagnostics Vital Signs (24Hr): Vital Signs - 24 hr 04/27/22 14:54 04/27/22 18:00 04/28/22 07:00 Temperature 98.3 F 97.2 F Pulse Rate 76 101 H 87 Respiratory Rate 20 18 17 Blood Pressure 127/62 126/73 Pulse Oximetry 98 98 Oxygen Delivery Method Room Air Room Air 04/28/22 09:30 Temperature Pulse Rate 92 Respiratory Rate 17 Blood Pressure Pulse Oximetry Oxygen Delivery Method BMI result Body Mass Index 25.7 Labs Results: 04/25/22 22:29 04/25/22 22:29 Imaging Radiology Impressions: ITS Impressions Chest X-Ray 04/22/22 10:20 IMPRESSION: No acute cardiopulmonary process. Cervical Spine CT 04/22/22 11:24 IMPRESSION: 1. Straightening of the normal cervical lordosis may be secondary to positioning and/or muscle spasm. 2. Multilevel degenerative changes without overt acute abnormality. Head CT 04/22/22 11:25 IMPRESSION: No acute intracranial pathology. Chest X-Ray 04/25/22 22:40 IMPRESSION: No acute pulmonary process. Medications Medications Current Medications Acetaminophen (Acetaminophen 325 Mg Tablet) 650 mg PO BID PRN PRN Reason: pain Last Admin: 04/28/22 02:06 Dose: 650 mg Albuterol Sulfate (Albuterol Sulfate 90 Mcg 8 Gm Inhaler) 2 puff INHALE QID PRN PRN Reason: Wheezing Last Admin: 04/27/22 21:06 Dose: 2 puff Albuterol/Ipratropium (Albuterol/Iprat 2.5/0.5mg 3 Ml Ampul.Neb) 3 ml INHALE Q4H PRN PRN Reason: Wheezing Last Admin: 04/25/22 22:23 Dose: 3 ml Albuterol/Ipratropium (Albuterol/Iprat 2.5/0.5mg 3 Ml Ampul.Neb) 3 ml INHALE Q4H PRN PRN Reason: Shortness of Breath/Wheezing Albuterol/Ipratropium (Albuterol/Iprat 2.5/0.5mg 3 Ml Ampul.Neb) 3 ml INHALE RQ4H WHILE AWAKE ON LICENSE OF [facility] Last Admin: 04/28/22 13:53 Dose: Not Given Aspirin (Aspirin Enteric Coated 81 Mg Tablet.Dr) 81 mg PO BEDTIME ON LICENSE OF [facility] Last Admin: 04/27/22 21:02 Dose: 81 mg Baclofen (Baclofen 20 Mg Tablet) 20 mg PO DAILY PRN PRN Reason: Back Pain Last Admin: 04/28/22 02:07 Dose: 20 mg Fluticasone Propionate (Fluticasone Propionate 250 Mcg Blst.W.Dev) 1 puff INHALE RBID ON LICENSE OF [facility] Last Admin: 04/28/22 09:29 Dose: 1 puff Folic Acid (Folic Acid 1 Mg Tablet) 1 mg PO DAILY ON LICENSE OF [facility] Last Admin: 04/28/22 08:11 Dose: 1 mg Furosemide (Furosemide 20 Mg Tablet) 10 mg PO DAILY ON LICENSE OF [facility]; Protocol Last Admin: 04/28/22 08:12 Dose: 10 mg Metoprolol Succinate (Metoprolol Succinate Er 25 Mg Tab.Er.24h) 25 mg PO DAILY ON LICENSE OF [facility]; Protocol Last Admin: 04/28/22 08:11 Dose: 25 mg Montelukast Sodium (Montelukast Sodium 10 Mg Tablet) 10 mg PO BEDTIME ON LICENSE OF [facility] Last Admin: 04/27/22 21:02 Dose: 10 mg Multivitamins/Vitamin C (Multivitamin Tablet) 1 tab PO DAILY ON LICENSE OF [facility] Last Admin: 04/28/22 08:12 Dose: 1 tab Nicotine (Nicotine 14 Mg Patch.Td24) 14 mg TRANSDERMA DAILY ON LICENSE OF [facility] Last Admin: 04/28/22 08:11 Dose: 14 mg Omeprazole (Omeprazole 40 Mg Capsule.Dr) 40 mg PO DAILY@0630 ON LICENSE OF [facility] Last Admin: 04/28/22 06:41 Dose: 40 mg Ondansetron HCl (Ondansetron Odt 4 Mg Tab.Rapdis) 4 mg TRANSLINGU Q12H PRN PRN Reason: Nausea Pharmacy Consult (Consult Rx Perform Med Rec) 1 each MISCELLANE ONCE PRN PRN Reason: Consult order Pravastatin Sodium (Pravastatin Sodium 20 Mg Tablet) 20 mg PO BEDTIME ON LICENSE OF [facility] Last Admin: 04/27/22 21:02 Dose: 20 mg Prednisone (Prednisone 20 Mg Tablet) 40 mg PO DAILY ON LICENSE OF [facility] Last Admin: 04/28/22 08:11 Dose: 40 mg Quetiapine Fumarate (Quetiapine Fumarate 25 Mg Tablet) 25 mg PO BID PRN PRN Reason: agitation, anxiety Last Admin: 04/26/22 23:10 Dose: 25 mg Quetiapine Fumarate (Quetiapine Fumarate 50 Mg Tablet) 50 mg PO TID ON LICENSE OF [facility] Last Admin: 04/28/22 08:11 Dose: 50 mg Senna (Sennosides 8.6 Mg Tablet) 8.6 mg PO BID PRN PRN Reason: constipation Thiamine HCl (Thiamine Hcl 100 Mg Tablet) 100 mg PO DAILY ON LICENSE OF [facility] Last Admin: 04/28/22 08:11 Dose: 100 mg Trazodone HCl (Trazodone Hcl 50 Mg Tablet) 50 mg PO BEDTIME PRN PRN Reason: Insomnia Last Admin: 04/27/22 21:03 Dose: 50 mg Allergies Allergies Allergy/AdvReac Type Severity Reaction Status Date / Time advair Allergy Unknown Unknown Uncoded 03/29/22 01:21 From PAXIL AdvReac Intermediate NAUSEA & Uncoded 03/29/22 01:21 VOMITING Assessment & Plan Assessment & Plan (1) Bipolar 1 disorder: Status: Acute Code(s): F31.9 - Bipolar disorder, unspecified (2) Cannabis use disorder, moderate, dependence: Status: Acute Code(s): F12.20 - Cannabis dependence, uncomplicated Plan The patient is an elderly [place] female, bilingual with a long history of bipolar disorder and cannabis use disorder, admitted for abruptly tried to kill herself with a razor blade after a conflict with her daughter. Plan 1. Gather collateral information. 2. Increase Seroquel up to 50 mg p.o. t.i.d. to target mood lability. 3. Keep rest the same. 4. Discharge planning I spent ___20___ minutes with the patient and/or on the patient floor today, greater than?50% of which was spent counseling/coordinating care. Reason for contiued inpatient stay Substantial Risk for: inability to function, rapid decompensation and med/psych decompensation
[2022-04-28] MEDS: Albuterol Sulfate 90 MCG 8 GM INHALER 2 PUFF INHALE (15:17)
[2022-04-28 16:32] VITALS: BP 126/60; PULSE 94; TEMP 36.6; O2SAT 99
[2022-04-28 16:33] LABS: Glucose, Whole Blood 194 mg/dL (60-115)
[2022-04-28 18:00] VITALS: BP 138/64; PULSE 90; RESP 20; TEMP 36.9; O2SAT 99
--- NOTE | 2022-04-28 18:07 | PC.NURSE ---
Patient was visible on unit throughout the shift. Interacting appropriately with staff and peers. Med compliant. Received Duoneb treatment from Respiratory Therapy. Requested PRN inhaler x1. Patient also requested mediation for headache pain. Tylenol 650 mg was given with good effect. Patient attended groups and enjoyed outdoor break. Reports safe on unit. Denies SI/HI.
[2022-04-28] MEDS: Aspirin Enteric Coated 81 MG TABLET.DR PO (20:06)
[2022-04-28] MEDS: Pravastatin Sodium 20 MG TABLET PO (20:06)
[2022-04-28] MEDS: Montelukast Sodium 10 MG TABLET PO (20:06)
[2022-04-29] MEDS: Omeprazole 40 MG CAPSULE.DR PO (05:46)
[2022-04-29 07:00] VITALS: BP 146/76; PULSE 79; RESP 17; TEMP 36.4; O2SAT 99
[2022-04-29] MEDS: Thiamine HCL 100 MG TABLET PO (07:54)
[2022-04-29] MEDS: Nicotine 14 MG PATCH.TD24 TRANSDERMA (07:54)
[2022-04-29] MEDS: Folic Acid 1 MG TABLET PO (07:54)
[2022-04-29] MEDS: QUEtiapine Fumarate 50 MG TABLET PO (07:54)
[2022-04-29] MEDS: Multivitamin TABLET 1 TAB PO (07:55)
[2022-04-29] MEDS: Metoprolol Succinate ER 25 MG TAB.ER.24H PO (07:55)
[2022-04-29] MEDS: predniSONE 20 MG TABLET 40 MG PO (07:55)
[2022-04-29] MEDS: Furosemide 20 MG TABLET 10 MG PO (07:55)
[2022-04-29] MEDS: Fluticasone Propionate 250 MCG BLST.W.DEV 1 PUFF INHALE (07:58)
--- NOTE | 2022-04-29 10:50 | PM.PSYDC ---
DS: Providers Provider Date of Service: 04/29/22 Date of admission: 04/24/22 20:41 Date of discharge: 04/29/22 Primary care physician: Ryder Monique MD Attending physician on discharge: Piotr Hess DS: Diagnosis Discharge Diagnosis (1) Bipolar 1 disorder: Status: Acute (2) Cannabis use disorder, moderate, dependence: Status: Acute DS: Medications Discharge Medications Home Medications: Home Medications Medication Instructions Recorded Confirmed sennosides 8.6 mg tablet (senna) 1 tab PO BID PRN constipation 02/04/21 04/22/22 ipratropium 0.5 mg-albuterol 3 mg 1 amp inhalation Q4H PRN Wheezing 11/24/21 04/22/22 (2.5 mg base)/3 mL nebulization soln acetaminophen 650 mg 1 tab PO BID PRN pain 03/21/22 04/22/22 tablet,extended release aspirin 81 mg tablet,delayed 1 tab PO QPM 03/21/22 04/22/22 release fluticasone propionate 220 1 puff PO BID 03/21/22 04/22/22 mcg/actuation HFA aerosol inhaler (Flovent HFA) folic acid 1 mg tablet 1 tab PO QAM 03/21/22 04/22/22 furosemide 20 mg tablet 0.5 tab PO DAILY 03/21/22 04/22/22 metoprolol succinate 25 mg 1 tab PO QAM 03/21/22 04/22/22 tablet,extended release 24 hr omeprazole 40 mg capsule,delayed 1 cap PO QAM 03/21/22 04/22/22 release pravastatin 20 mg tablet 1 tab PO QPM 03/21/22 04/22/22 quetiapine 25 mg tablet 1 tab PO BID 03/21/22 04/22/22 thiamine HCl (vitamin B1) 100 mg 1 tab PO QAM 03/21/22 04/22/22 tablet albuterol sulfate 90 mcg/actuation 1 puff PO QID PRN wheezing 04/22/22 04/22/22 aerosol inhaler baclofen 20 mg tablet 20 mg PO DAILY PRN Back Pain 04/22/22 04/22/22 montelukast 10 mg tablet 1 tab PO QPM 04/22/22 04/22/22 ondansetron 4 mg disintegrating 4 mg PO Q12H PRN Nausea 04/22/22 04/22/22 tablet Mental Status Exam Mental Status Exam Patient Appearance: Well Grooomed and Appropriate Patient Orientation: Person, Place and Situation Level of Consciousness: Awake and Appropriate Patient Behavior: Cooperative Mood Description: Calm Affect Description: Constricted Patient Cognition Impaired: Yes Ability to Follow Directions: Good Speech Pattern: Clear Hallucinations: None Delusions: Not Present Thought Process: Distracted and Evasive Thought Content: positive for [place] and positive for Circumstantial Judgement: Fair Data Data Completed and Pending Completed studies during hospitalization [Text1]: 04/22/22 04/22/22 04/22/22 10:36 10:36 10:36 WBC RBC Hgb Hct MCV MCH MCHC RDW Plt Count MPV Immature Gran % (Auto) Neut % (Auto) Lymph % (Auto) [place] % (Auto) Eos % (Auto) Baso % (Auto) Lymph # (Auto) [place] # (Auto) Eos # (Auto) Baso # (Auto) Abs Immat Gran (auto) Absolute Neuts (auto) Absolute Nucleated RBC Nucleated RBC % (auto) VBG pH VBG pCO2 VBG pO2 VBG HCO3 VBG O2 Saturation VBG Base Excess Sodium 130 L Potassium 4.4 Chloride 99 Carbon Dioxide 25 Anion Gap 10 L BUN 31 H D Creatinine 0.91 Estim Creat Clear Calc 53.9 Estimated GFR > 60 POC Glucose Random Glucose 91 Fasting Glucose Calcium 8.7 Magnesium 2.0 Total Bilirubin 0.3 Direct Bilirubin 0.2 AST 11 ALT 13 Alkaline Phosphatase 86 D Troponin I High Sens 4.3 B-Natriuretic Peptide 61 Total Protein 6.2 L Albumin 3.3 L Triglycerides Cholesterol LDL Cholesterol, Calc HDL Cholesterol Vitamin B12 Folate TSH Urine Color Urine Appearance Urine pH Ur Specific [place] Urine Protein Urine Glucose (UA) Urine Ketones Urine Blood Urine Nitrite Ur Leukocyte Esterase Urine RBC Urine WBC Ur Squamous Epith Cells Urine Bacteria Urine Opiates Screen Urine Fentanyl Screen Ur Barbiturates Screen Ur Phencyclidine Scrn Ur Amphetamines Screen U Benzodiazepines Scrn Urine Cocaine Screen U Marijuana (THC) Screen Ethyl Alcohol < 10 COVID-19 ([facility]) Negative COVID-19 Clin Com See Note 04/22/22 04/22/22 04/22/22 11:47 11:47 11:47 WBC RBC Hgb Hct MCV MCH MCHC RDW Plt Count MPV Immature Gran % (Auto) Neut % (Auto) Lymph % (Auto) [place] % (Auto) Eos % (Auto) Baso % (Auto) Lymph # (Auto) [place] # (Auto) Eos # (Auto) Baso # (Auto) Abs Immat Gran (auto) Absolute Neuts (auto) Absolute Nucleated RBC Nucleated RBC % (auto) VBG pH VBG pCO2 VBG pO2 VBG HCO3 VBG O2 Saturation VBG Base Excess Sodium Potassium Chloride Carbon Dioxide Anion Gap BUN Creatinine Estim Creat Clear Calc Estimated GFR POC Glucose Random Glucose Fasting Glucose Calcium Magnesium Total Bilirubin Direct Bilirubin AST ALT Alkaline Phosphatase Troponin I High Sens 3.7 B-Natriuretic Peptide Total Protein Albumin Triglycerides Cholesterol LDL Cholesterol, Calc HDL Cholesterol Vitamin B12 Folate TSH Urine Color YELLOW Urine Appearance HAZY Urine pH 6.0 Ur Specific [place] 1.010 Urine Protein NEG Urine Glucose (UA) NEG Urine Ketones NEG Urine Blood 3+ H Urine Nitrite NEG Ur Leukocyte Esterase NEG Urine RBC 15-29 H Urine WBC 0 Ur Squamous Epith Cells 2+ Urine Bacteria NONE Urine Opiates Screen Not Detected Urine Fentanyl Screen Not Detected Ur Barbiturates Screen Not Detected Ur Phencyclidine Scrn Not Detected Ur Amphetamines Screen Not Detected U Benzodiazepines Scrn Not Detected Urine Cocaine Screen Not Detected U Marijuana (THC) Screen POSITIVE H Ethyl Alcohol COVID-19 ([facility]) COVID-19 Clin Com 04/23/22 04/23/22 04/23/22 07:17 12:07 19:57 WBC RBC Hgb Hct MCV MCH MCHC RDW Plt Count MPV Immature Gran % (Auto) Neut % (Auto) Lymph % (Auto) [place] % (Auto) Eos % (Auto) Baso % (Auto) Lymph # (Auto) [place] # (Auto) Eos # (Auto) Baso # (Auto) Abs Immat Gran (auto) Absolute Neuts (auto) Absolute Nucleated RBC Nucleated RBC % (auto) VBG pH VBG pCO2 VBG pO2 VBG HCO3 VBG O2 Saturation VBG Base Excess Sodium Potassium Chloride Carbon Dioxide Anion Gap BUN Creatinine Estim Creat Clear Calc Estimated GFR POC Glucose 93 167 H Random Glucose Fasting Glucose Calcium Magnesium Total Bilirubin Direct Bilirubin AST ALT Alkaline Phosphatase Troponin I High Sens B-Natriuretic Peptide Total Protein Albumin Triglycerides Cholesterol LDL Cholesterol, Calc HDL Cholesterol Vitamin B12 330 Folate 17.0 TSH Urine Color Urine Appearance Urine pH Ur Specific [place] Urine Protein Urine Glucose (UA) Urine Ketones Urine Blood Urine Nitrite Ur Leukocyte Esterase Urine RBC Urine WBC Ur Squamous Epith Cells Urine Bacteria Urine Opiates Screen Urine Fentanyl Screen Ur Barbiturates Screen Ur Phencyclidine Scrn Ur Amphetamines Screen U Benzodiazepines Scrn Urine Cocaine Screen U Marijuana (THC) Screen Ethyl Alcohol COVID-19 ([facility]) COVID-19 Clin Com 04/23/22 04/23/22 04/24/22 19:57 21:43 15:55 WBC RBC Hgb Hct MCV MCH MCHC RDW Plt Count MPV Immature Gran % (Auto) Neut % (Auto) Lymph % (Auto) [place] % (Auto) Eos % (Auto) Baso % (Auto) Lymph # (Auto) [place] # (Auto) Eos # (Auto) Baso # (Auto) Abs Immat Gran (auto) Absolute Neuts (auto) Absolute Nucleated RBC Nucleated RBC % (auto) VBG pH VBG pCO2 VBG pO2 VBG HCO3 VBG O2 Saturation VBG Base Excess Sodium Potassium Chloride Carbon Dioxide Anion Gap BUN Creatinine Estim Creat Clear Calc Estimated GFR POC Glucose 149 H Random Glucose Fasting Glucose Calcium Magnesium Total Bilirubin Direct Bilirubin AST ALT Alkaline Phosphatase Troponin I High Sens B-Natriuretic Peptide Total Protein Albumin Triglycerides Cholesterol LDL Cholesterol, Calc HDL Cholesterol Vitamin B12 Folate TSH 2.16 Urine Color Urine Appearance Urine pH Ur Specific [place] Urine Protein Urine Glucose (UA) Urine Ketones Urine Blood Urine Nitrite Ur Leukocyte Esterase Urine RBC Urine WBC Ur Squamous Epith Cells Urine Bacteria Urine Opiates Screen Urine Fentanyl Screen Ur Barbiturates Screen Ur Phencyclidine Scrn Ur Amphetamines Screen U Benzodiazepines Scrn Urine Cocaine Screen U Marijuana (THC) Screen Ethyl Alcohol COVID-19 ([facility]) Negative COVID-19 Clin Com See Note 04/24/22 04/24/22 04/25/22 17:24 17:36 07:42 WBC RBC Hgb Hct MCV MCH MCHC RDW Plt Count MPV Immature Gran % (Auto) Neut % (Auto) Lymph % (Auto) [place] % (Auto) Eos % (Auto) Baso % (Auto) Lymph # (Auto) [place] # (Auto) Eos # (Auto) Baso # (Auto) Abs Immat Gran (auto) Absolute Neuts (auto) Absolute Nucleated RBC Nucleated RBC % (auto) VBG pH VBG pCO2 VBG pO2 VBG HCO3 VBG O2 Saturation VBG Base Excess Sodium 136 Potassium 5.1 Chloride 99 Carbon Dioxide 28 Anion Gap 14 BUN 33 H Creatinine 0.94 Estim Creat Clear Calc 52.2 Estimated GFR 59 POC Glucose 67 Random Glucose Fasting Glucose 116 H Calcium 8.9 Magnesium Total Bilirubin 0.2 Direct Bilirubin AST 11 ALT 10 Alkaline Phosphatase 87 Troponin I High Sens 4.0 B-Natriuretic Peptide Total Protein 5.7 L Albumin 3.1 L Triglycerides 98 Cholesterol 130 LDL Cholesterol, Calc 67 HDL Cholesterol 44 Vitamin B12 Folate TSH Urine Color Urine Appearance Urine pH Ur Specific [place] Urine Protein Urine Glucose (UA) Urine Ketones Urine Blood Urine Nitrite Ur Leukocyte Esterase Urine RBC Urine WBC Ur Squamous Epith Cells Urine Bacteria Urine Opiates Screen Urine Fentanyl Screen Ur Barbiturates Screen Ur Phencyclidine Scrn Ur Amphetamines Screen U Benzodiazepines Scrn Urine Cocaine Screen U Marijuana (THC) Screen Ethyl Alcohol COVID-19 ([facility]) COVID-19 Clin Com 04/25/22 04/25/22 04/25/22 22:29 22:29 22:29 WBC 9.0 RBC 3.41 L Hgb 9.5 L Hct 29.2 L MCV 85.6 MCH 27.9 MCHC 32.5 RDW 15.6 Plt Count 377 MPV 8.4 L Immature Gran % (Auto) 1.8 H Neut % (Auto) 57.1 Lymph % (Auto) 29.7 [place] % (Auto) 10.5 Eos % (Auto) 0.7 Baso % (Auto) 0.2 Lymph # (Auto) 2.7 [place] # (Auto) 0.9 Eos # (Auto) 0.1 Baso # (Auto) 0.0 Abs Immat Gran (auto) 0.16 H Absolute Neuts (auto) 5.1 Absolute Nucleated RBC 0.000 Nucleated RBC % (auto) 0.0 VBG pH VBG pCO2 VBG pO2 VBG HCO3 VBG O2 Saturation VBG Base Excess Sodium 132 L Potassium 5.2 H Chloride 97 Carbon Dioxide 23 Anion Gap 17 BUN 42 H Creatinine 1.19 Estim Creat Clear Calc 41.2 Estimated GFR 45 POC Glucose Random Glucose 208 H Fasting Glucose Calcium 8.6 Magnesium Total Bilirubin Direct Bilirubin AST ALT Alkaline Phosphatase Troponin I High Sens 3.5 B-Natriuretic Peptide 16 Total Protein Albumin Triglycerides Cholesterol LDL Cholesterol, Calc HDL Cholesterol Vitamin B12 Folate TSH Urine Color Urine Appearance Urine pH Ur Specific [place] Urine Protein Urine Glucose (UA) Urine Ketones Urine Blood Urine Nitrite Ur Leukocyte Esterase Urine RBC Urine WBC Ur Squamous Epith Cells Urine Bacteria Urine Opiates Screen Urine Fentanyl Screen Ur Barbiturates Screen Ur Phencyclidine Scrn Ur Amphetamines Screen U Benzodiazepines Scrn Urine Cocaine Screen U Marijuana (THC) Screen Ethyl Alcohol COVID-19 ([facility]AKIA) COVID-19 [facility] Com 04/25/22 04/28/22 22:34 16:29 WBC RBC Hgb Hct MCV MCH MCHC RDW Plt Count MPV Immature Gran % (Auto) Neut % (Auto) Lymph % (Auto) [place] % (Auto) Eos % (Auto) Baso % (Auto) Lymph # (Auto) [place] # (Auto) Eos # (Auto) Baso # (Auto) Abs Immat Gran (auto) Absolute Neuts (auto) Absolute Nucleated RBC Nucleated RBC % (auto) VBG pH 7.46 H VBG pCO2 35 VBG pO2 75 VBG HCO3 25 VBG O2 Saturation 96.0 VBG Base Excess 2.3 Sodium Potassium Chloride Carbon Dioxide Anion Gap BUN Creatinine Estim Creat Clear Calc Estimated GFR POC Glucose 194 H Random Glucose Fasting Glucose Calcium Magnesium Total Bilirubin Direct Bilirubin AST ALT Alkaline Phosphatase Troponin I High Sens B-Natriuretic Peptide Total Protein Albumin Triglycerides Cholesterol LDL Cholesterol, Calc HDL Cholesterol Vitamin B12 Folate TSH Urine Color Urine Appearance Urine pH Ur Specific [place] Urine Protein Urine Glucose (UA) Urine Ketones Urine Blood Urine Nitrite Ur Leukocyte Esterase Urine RBC Urine WBC Ur Squamous Epith Cells Urine Bacteria Urine Opiates Screen Urine Fentanyl Screen Ur Barbiturates Screen Ur Phencyclidine Scrn Ur Amphetamines Screen U Benzodiazepines Scrn Urine Cocaine Screen U Marijuana (THC) Screen Ethyl Alcohol COVID-19 ([facility]AKIA) COVID-19 Clin Com Imaging Diagnostic Imaging Impressions Chest X-Ray 04/22/22 10:20 IMPRESSION: No acute cardiopulmonary process. Cervical Spine CT 04/22/22 11:24 IMPRESSION: 1. Straightening of the normal cervical lordosis may be secondary to positioning and/or muscle spasm. 2. Multilevel degenerative changes without overt acute abnormality. Head CT 04/22/22 11:25 IMPRESSION: No acute intracranial pathology. Chest X-Ray 04/25/22 22:40 IMPRESSION: No acute pulmonary process. DS: Summary Hospital Course Hospital Course: The patient was initially admitted for suicidal ideation with a plan to cut herself with a razor plate. Apparently the patient had an argument with her biological children and she impulsively want to kill herself. Please see the HPI note for further details on the admission. On interview, on the admission, the patient reported that she was having depressive symptoms but her mood was very unstable with episodes of laughing and episodes of crying. We review her list of medications and she carries a diagnosis of bipolar disorder. Her only mood stabilizer was Seroquel 25 mg p.o. b.i.d.. We discussed with the patient risks, alternatives, benefits and side effects and she agreed to titrated slowly up to 50 mg p.o. t.i.d.. Also the patient, asked for a 3 day notice that she wanted to be discharged as soon as possible. We gather collateral information and apparently the patient carries a diagnosis also of alcohol use disorder who has been abusing it frequently and she was positive for cannabis. Also, the school social worker, found out that she was engage in several services such as a support group for alcohol, activities outside of her home and other ancillary services. The patient was able to participate in groups, she was pleasant and cooperative when she adamantly denies suicidal ideation. Since there were no safety concerns discharge planning was discussed. Time spent discussing smoking cessation with patient: 3 to 10 minutes Status at Discharge Cognitive/behavioral status at discharge: Nolan 13/30 Functional status at discharge: independent ambulation Overall status at discharge: patient is back to baseline Time Spent with Patient Time attestation: Total time spent providing and/or coordinating discharge services: Time spent: Less than 30 minutes Discharge Plan Discharge Patient Disposition: Home, Self-Care Discharge Diagnosis: Mood disorder NOS, Dementia Referrals: [facility] [Other] - 04/29/22 (Your [facility] will restart when you return home for daily medications visits and oversight. ) [facility] services [Other] - 04/29/22 (Your [facility] [employer] services provided by [facility] at [facility] will resume on 04/29/22. ) [facility] [Other] - 1 Week (Referral placed for in home therapy with [facility]. You are currently on waitlist and office will contact you following discharge. You have also been referred for psychiatry with [facility] and once you are established with the therapist you will have psychiatry. ) Name,MD Ryder [Primary Care Provider] - 1 Week Discharge Medications: New quetiapine 50 mg Tablet 50 mg PO TID 30 Days Qty: 90 0RF trazodone 50 mg Tablet 50 mg PO BEDTIME PRN (Reason: Insomnia) 30 Days Qty: 30 0RF prednisone 20 mg Tablet 40 mg PO DAILY 30 Days Qty: 60 0RF multivitamin [Daily-Cony] Tablet 1 tab PO DAILY 30 Days Qty: 30 0RF Continued sennosides [senna] 8.6 mg tablet 1 tab PO BID PRN (Reason: constipation) 30 Days Qty: 60 0RF ipratropium-albuterol 0.5 mg-3 mg(2.5 mg base)/3 mL solution for nebulization 1 amp inhalation Q4H PRN (Reason: Wheezing) 30 Days Qty: 30 0RF thiamine HCl (vitamin B1) 100 mg tablet 1 tab PO QAM 30 Days Qty: 30 0RF omeprazole 40 mg capsule,delayed release(DR/EC) 1 cap PO QAM 30 Days Qty: 30 0RF aspirin 81 mg tablet,delayed release (DR/EC) 1 tab PO QPM 30 Days Qty: 30 0RF acetaminophen 650 mg tablet extended release 1 tab PO BID PRN (Reason: pain) 30 Days Qty: 60 0RF baclofen 20 mg Tablet 20 mg PO DAILY PRN (Reason: Back Pain) 30 Days Qty: 30 0RF montelukast 10 mg tablet 1 tab PO QPM 30 Days Qty: 30 0RF fluticasone propionate [Flovent HFA] 220 mcg/actuation HFA aerosol inhaler 1 puff PO BID Qty: 12 0RF pravastatin 20 mg tablet 1 tab PO QPM 30 Days Qty: 30 0RF furosemide 20 mg tablet 0.5 tab PO DAILY 30 Days Qty: 15 0RF metoprolol succinate 25 mg tablet extended release 24 hr 1 tab PO QAM 30 Days Qty: 30 0RF albuterol sulfate 90 mcg/actuation HFA aerosol inhaler 1 puff PO QID PRN (Reason: wheezing) 30 Days Qty: 1 0RF ondansetron 4 mg Tablet,Disintegrating 4 mg PO Q12H PRN (Reason: Nausea) 30 Days Qty: 30 0RF Changed folic acid 1 mg tablet 1 mg PO QAM 30 Days Qty: 30 0RF Discontinued quetiapine 25 mg tablet 1 tab PO BID Discharge Orders: Discharge Order (Routine); Ordered 04/29/22 Ordered By: Piotr Hess Diet: Advance to usual diet Activity on Discharge: As tolerated Stand Alone Forms: Patient Portal Discharge page Care Plan Goals: Care plan goals achieved Health Concerns: Continue outpatient services by primary care physician Plan of Treatment: Continue medication management Assessment: Elderly [place] female with a long history of bipolar disorder, alcohol use disorder, cannabis use disorder an honor several psychosocial stressors admitted for suicidal ideation. Currently safe in the community able to contract for safety
--- NOTE | 2022-04-29 13:01 | PC.NURSE ---
Patient discharge instructions reviewed with patient . Verbalized understanding. Medications and follow up appointments reviewed. Patient dressed appropriately for discharge. Expressed readiness to be home with her . Escorted to front entrance by TW where she was picked up by daughter.
== END 2022-04-29 13:01 | disposition home or self-care (01) | DRG 885 ==
LOC: HO.ED 04-23 18:45 → HO.PGERI 04-24 20:56
PROVIDERS: Clinical Nurse Specialist Psychiatric/Mental Health, Adult; Internal Medicine; Physician Assistant; Physician Assistant Medical; Admitting Provider Psychiatry & Neurology Psychiatry; Emergency Provider Student in an Organized Health Care Education/Training Program; PCP Internal Medicine Geriatric Medicine; Visit Provider Psychiatry & Neurology Psychiatry
DX: F31.9 Bipolar disorder, unspecified (principal); R45.851 Suicidal ideations; J45.901 Unspecified asthma with (acute) exacerbation; F03.90 Unspecified dementia, unspecified severity, without behavioral disturbance, psychotic disturbance, mood disturbance, and anxiety; F17.210 Nicotine dependence, cigarettes, uncomplicated; F12.20 Cannabis dependence, uncomplicated; Z20.822 Contact with and (suspected) exposure to COVID-19; Z88.8 Allergy status to other drugs, medicaments and biological substances; Z79.82 Long term (current) use of aspirin; Z79.51 Long term (current) use of inhaled steroids; Z79.52 Long term (current) use of systemic steroids; Z79.899 Other long term (current) drug therapy
CPT/HCPCS: 36415; 70450; 71045; 72125; 80048; 80053; 80061; 80076; 80307; 81001; 82077; 82607; 82746; 82803; 82947; 83735; 83880; 84443; 84484; 85025; 87635; 93005; 94640; 99285; J2920

== ENCOUNTER 2022-06-05 13:20 | Emergency (ER) | payer MEDICARE, MEDICAID, SELFPAY ==
--- NOTE | ~2022-06-05 | XR_ITS ---
EXAMINATION: XR CHEST CLINICAL INFORMATION: Shortness of breath COMPARISON: Chest x-ray 04/25/2022 TECHNIQUE: Frontal view of the chest was obtained. FINDINGS: Small patchy retrocardiac opacity likely mild left basilar atelectasis. No airspace consolidation, pleural effusion, or pneumothorax identified. The cardiomediastinal silhouette is within normal limits for technique. No evidence of pulmonary edema. No acute osseous injury. Bilateral shoulder joint osteoarthritis noted. XR/XR chest 1V IMPRESSION: 1. No acute pulmonary process.
[2022-06-05 13:31] VITALS: BP 156/71; BP 158/88; PULSE 112; PULSE 120; RESP 18; TEMP 36.8; O2SAT 94; O2SAT 99; BMI 27.3
--- NOTE | 2022-06-05 13:50 | ED.SOB ---
HPI - SOB/Dyspnea General Chief Complaint: General Medical Stated Complaint: DIZZINESS,EDEMA Time Seen by Provider: 06/05/22 13:44 Source: patient Mode of arrival: EMS Limitations: no limitations History of Present Illness HPI Narrative: Patient is 67 years old with history of alcohol use disorder, bipolar disorder, hyponatremia, CHF, COPD, diabetes and hypertension, schizophrenia chronic smoker on home oxygen 2 liter/minute as needed came for increased shortness of breath for last few days with cough with mucopurulent phlegm no fever no chills feels whole body is swollen patient was taking furosemide 20 mg daily which was stopped 1 week ago. Related Data Previous Rx's Medication Instructions Recorded acetaminophen 650 mg 1 tab PO BID PRN pain 30 days #60 04/29/22 tablet,extended release tabs albuterol sulfate 90 mcg/actuation 1 puff PO QID PRN wheezing 30 days 04/29/22 aerosol inhaler #1 units aspirin 81 mg tablet,delayed 1 tab PO QPM 30 days #30 tabs 04/29/22 release baclofen 20 mg tablet 20 mg PO DAILY PRN Back Pain 30 04/29/22 days #30 tabs fluticasone propionate 220 1 puff PO BID #12 grams 04/29/22 mcg/actuation HFA aerosol inhaler (Flovent HFA) folic acid 1 mg tablet 1 mg PO QAM 30 days #30 tabs 04/29/22 furosemide 20 mg tablet 0.5 tab PO DAILY 30 days #15 tabs 04/29/22 ipratropium 0.5 mg-albuterol 3 mg 1 amp inhalation Q4H PRN Wheezing 04/29/22 (2.5 mg base)/3 mL nebulization 30 days #30 multiple units soln metoprolol succinate 25 mg 1 tab PO QAM 30 days #30 tabs 04/29/22 tablet,extended release 24 hr montelukast 10 mg tablet 1 tab PO QPM 30 days #30 tabs 04/29/22 multivitamin (Daily-Cony tablet) 1 tab PO DAILY 30 days #30 tabs 04/29/22 omeprazole 40 mg capsule,delayed 1 cap PO QAM 30 days #30 caps 04/29/22 release ondansetron 4 mg disintegrating 4 mg PO Q12H PRN Nausea 30 days 04/29/22 tablet #30 tabs pravastatin 20 mg tablet 1 tab PO QPM 30 days #30 tabs 04/29/22 prednisone 20 mg tablet 40 mg PO DAILY 30 days #60 tabs 04/29/22 quetiapine 50 mg tablet 50 mg PO TID 30 days #90 tabs 04/29/22 sennosides 8.6 mg tablet (senna) 1 tab PO BID PRN constipation 30 04/29/22 days #60 tabs thiamine HCl (vitamin B1) 100 mg 1 tab PO QAM 30 days #30 tabs 04/29/22 tablet trazodone 50 mg tablet 50 mg PO BEDTIME PRN Insomnia 30 04/29/22 days #30 tabs doxycycline hyclate 100 mg tablet 100 mg PO BID #20 tabs 06/05/22 prednisone 20 mg tablet 40 mg PO DAILY #10 tabs 06/05/22 Allergies Allergy/AdvReac Type Severity Reaction Status Date / Time advair Allergy Unknown Unknown Uncoded 03/29/22 01:21 From PAXIL AdvReac Intermediate NAUSEA & Uncoded 03/29/22 01:21 VOMITING Review of Systems Review of Systems: Yes all other systems are reviewed and are negative [facility] Past Medical History Medical History Acute hyponatremia Alcohol use disorder Bipolar 1 disorder Bipolar I disorder Cannabis use disorder, moderate, dependence Chronic hyponatremia Congestive heart failure COPD (chronic obstructive pulmonary disease) Coronary artery disease Dementia Diabetes Hypertension Korsakoff disease Osteoarthritis Schizophrenia Sleep apnea Surgical History Hx of appendectomy Social History Social History Household Members: Spouse Housing: Apartment Do you presently have visiting nurse or other home services: Yes Unable to assess alcohol history related to: Unknown Alcohol intake: current Alcohol intake frequency: a few times a week Alcohol type: beer Patient Tobacco Use Status: Current everyday Tobacco user Tobacco use type: Cigarette Cigarettes Per Day: 6 Years Smoked: 53 e-Cigarette/Vaping Use: Never Used Second Hand Smoke Exposure: Yes Substance Use Type: Marijuana Advance Directives: Yes Advance Directives on File: Yes Advance Directives Date on File: 10/10/20 service: No Current occupational status: unemployed, disabled and other Sexual orientation: Straight/Heterosexual Physical Exam Vital Signs: Vital Signs: Last Vital Signs Temp 99.6 F 06/05/22 14:11 Pulse 109 H 06/05/22 14:26 Resp 18 06/05/22 14:26 BP 124/67 06/05/22 14:11 Pulse Ox 98 06/05/22 14:11 O2 Del Method 06/05/22 14:11 BMI result Body Mass Index 27.3 Appearance: Alert. Oriented X3. In mild distress. Eyes: PERRLA, No Nystagmus pallor+ ENT: Pharynx normal. Oral Mucosa moist Neck: Normal inspection. Neck supple. CVS: Normal heart rate and rhythm. Pulses normal. Respiratory: No respiratory distress. Equal air entry bilateral, bilateral prolonged expiration Abdomen: Soft and nontender. Bowel sounds are present, no mass palpable, no CVA tenderness rectal: guaic neg, brown stool Skin: Skin warm and dry. Normal skin color. Normal skin turgor. Extremities: 3+ lower extremity edema. No calf tenderness Neuro: Oriented X 3. No motor deficit. No sensory deficit.No cerebellar signs , cranial nerves II-XII intact MDM - SOB/Dyspnea MDM Narrative Medical decision making narrative: Patient has COPD alcohol use stable labs chest x-ray negative saturating 100% room air patient has oxygen at home nebulizer at home with discharge patient home on doxycycline and prednisone Lab Data Attestation: I reviewed the patient's lab results. Result diagrams: 06/05/22 14:32 06/05/22 14:32 Labs: Lab Results 06/05/22 06/05/22 06/05/22 Range/Units 14:32 14:32 14:32 WBC 7.1 (4.8-10.8) X10*3/uL RBC 2.87 L (4.20-5.50) X10*6/uL Hgb 8.2 L (12.0-16.0) g/dl Hct 25.0 L (37.0-47.0) % MCV 87.1 (80.0-98.0) fL MCH 28.6 (27.0-33.0) pg MCHC 32.8 (31.0-35.0) g/dl RDW 16.3 H (11.0-16.0) % Plt Count 268 D (160-400) X10*3/uL MPV 8.2 L (9.4-12.3) fL Immature Gran % (Auto) 2.8 H (0.0-0.4) % Neut % (Auto) 62.7 (45-73) % Lymph % (Auto) 21.9 (20-40) % [place] % (Auto) 12.2 H (2-11) % Eos % (Auto) 0.1 (0-4) % Baso % (Auto) 0.3 (0-2) % Lymph # (Auto) 1.6 (1.2-4.9) X10*3/uL [place] # (Auto) 0.9 (0.1-1.2) X10*3/uL Eos # (Auto) 0.0 (0.0-0.4) X10*3/uL Baso # (Auto) 0.0 (0.0-0.2) X10*3/uL Abs Immat Gran (auto) 0.20 H (0.00-0.03) X10*3/uL Absolute Neuts (auto) 4.4 (2.0-8.3) x10*3/uL Absolute Nucleated RBC 0.000 (0.0-0.012) X10*3/uL Nucleated RBC % (auto) 0.0 (0.0-0.2) /100WBC PT 10.5 (10.0-13.1) SEC INR 0.9 (0.9-1.1) Sodium 129 L (135-145) mmol/L Potassium 4.0 D (3.3-5.1) mmol/L Chloride 95 L (96-108) mmol/L Carbon Dioxide 22 (22-29) mmol/L Anion Gap 16 (12-20) BUN 26 H (9-16) mg/dL Creatinine 1.34 (0.5-1.4) mg/dL Estim Creat Clear Calc 44.4 Estimated GFR 39 Random Glucose 126 H (60-115) mg/dL Calcium 8.3 L (8.4-10.2) mg/dL Total Bilirubin 0.3 (0.0-1.0) mg/dL AST 16 D (5-31) U/L ALT 15 (0-31) U/L Alkaline Phosphatase 78 (39-117) U/L Troponin I High Sens (<3.5-17.0) ng/L B-Natriuretic Peptide (<100) pg/mL Total Protein 6.0 L (6.5-8.0) g/dL Albumin 3.2 L (3.5-5.0) g/dL Stool Occult Blood (NEGATIVE) COVID-19 ([facility]) (Negative) COVID-19 Clin Com 06/05/22 06/05/22 06/05/22 Range/Units 14:32 14:32 15:34 WBC (4.8-10.8) X10*3/uL RBC (4.20-5.50) X10*6/uL Hgb (12.0-16.0) g/dl Hct (37.0-47.0) % MCV (80.0-98.0) fL MCH (27.0-33.0) pg MCHC (31.0-35.0) g/dl RDW (11.0-16.0) % Plt Count (160-400) X10*3/uL MPV (9.4-12.3) fL Immature Gran % (Auto) (0.0-0.4) % Neut % (Auto) (45-73) % Lymph % (Auto) (20-40) % [place] % (Auto) (2-11) % Eos % (Auto) (0-4) % Baso % (Auto) (0-2) % Lymph # (Auto) (1.2-4.9) X10*3/uL [place] # (Auto) (0.1-1.2) X10*3/uL Eos # (Auto) (0.0-0.4) X10*3/uL Baso # (Auto) (0.0-0.2) X10*3/uL Abs Immat Gran (auto) (0.00-0.03) X10*3/uL Absolute Neuts (auto) (2.0-8.3) x10*3/uL Absolute Nucleated RBC (0.0-0.012) X10*3/uL Nucleated RBC % (auto) (0.0-0.2) /100WBC PT (10.0-13.1) SEC INR (0.9-1.1) Sodium (135-145) mmol/L Potassium (3.3-5.1) mmol/L Chloride (96-108) mmol/L Carbon Dioxide (22-29) mmol/L Anion Gap (12-20) BUN (9-16) mg/dL Creatinine (0.5-1.4) mg/dL Estim Creat Clear Calc Estimated GFR Random Glucose (60-115) mg/dL Calcium (8.4-10.2) mg/dL Total Bilirubin (0.0-1.0) mg/dL AST (5-31) U/L ALT (0-31) U/L Alkaline Phosphatase (39-117) U/L Troponin I High Sens 6.0 D (<3.5-17.0) ng/L B-Natriuretic Peptide 44 (<100) pg/mL Total Protein (6.5-8.0) g/dL Albumin (3.5-5.0) g/dL Stool Occult Blood NEGATIVE (NEGATIVE) COVID-19 ([facility]) Negative (Negative) COVID-19 Clin Com See Note Discharge Plan Discharge Clinical Impression: Acute bronchitis Patient Disposition: Home, Self-Care Instructions: Acute Bronchitis (ED) Additional Instructions: Continue to use inhalers/nebulizer every 4 hours as needed Start taking prednisone and antibiotic as prescribed Start taking water pill for leg swelling as prescribed by your PCP Stop smoking and alcohol Follow with PCP Prescriptions: New prednisone 20 mg tablet 40 mg PO DAILY Qty: 10 0RF doxycycline hyclate 100 mg tablet 100 mg PO BID Qty: 20 0RF No Action quetiapine 50 mg Tablet 50 mg PO TID 30 Days Qty: 90 0RF trazodone 50 mg Tablet 50 mg PO BEDTIME PRN (Reason: Insomnia) 30 Days Qty: 30 0RF prednisone 20 mg Tablet 40 mg PO DAILY 30 Days Qty: 60 0RF multivitamin [Daily-Cony] Tablet 1 tab PO DAILY 30 Days Qty: 30 0RF sennosides [senna] 8.6 mg tablet 1 tab PO BID PRN (Reason: constipation) 30 Days Qty: 60 0RF ipratropium-albuterol 0.5 mg-3 mg(2.5 mg base)/3 mL solution for nebulization 1 amp inhalation Q4H PRN (Reason: Wheezing) 30 Days Qty: 30 0RF thiamine HCl (vitamin B1) 100 mg tablet 1 tab PO QAM 30 Days Qty: 30 0RF omeprazole 40 mg capsule,delayed release(DR/EC) 1 cap PO QAM 30 Days Qty: 30 0RF aspirin 81 mg tablet,delayed release (DR/EC) 1 tab PO QPM 30 Days Qty: 30 0RF acetaminophen 650 mg tablet extended release 1 tab PO BID PRN (Reason: pain) 30 Days Qty: 60 0RF baclofen 20 mg Tablet 20 mg PO DAILY PRN (Reason: Back Pain) 30 Days Qty: 30 0RF folic acid 1 mg tablet 1 mg PO QAM 30 Days Qty: 30 0RF montelukast 10 mg tablet 1 tab PO QPM 30 Days Qty: 30 0RF fluticasone propionate [Flovent HFA] 220 mcg/actuation HFA aerosol inhaler 1 puff PO BID Qty: 12 0RF pravastatin 20 mg tablet 1 tab PO QPM 30 Days Qty: 30 0RF furosemide 20 mg tablet 0.5 tab PO DAILY 30 Days Qty: 15 0RF metoprolol succinate 25 mg tablet extended release 24 hr 1 tab PO QAM 30 Days Qty: 30 0RF albuterol sulfate 90 mcg/actuation HFA aerosol inhaler 1 puff PO QID PRN (Reason: wheezing) 30 Days Qty: 1 0RF ondansetron 4 mg Tablet,Disintegrating 4 mg PO Q12H PRN (Reason: Nausea) 30 Days Qty: 30 0RF
--- NOTE | 2022-06-05 13:51 | ECG_ITS ---
Test Reason : dif breathing Blood Pressure : / mmHG Vent. Rate : 104 BPM Atrial Rate : 104 BPM P-R Int : 132 ms QRS Dur : 084 ms QT Int : 346 ms P-R-T Axes : 035 -09 047 degrees QTc Int : 454 ms Sinus tachycardia Nonspecific T wave abnormality Abnormal ECG When compared with ECG of 25-APR-2022 22:55, Heart rate has increased Referred By: Mikel Dominguez Electronically Signed By:DAMARIS TUTTLE
[2022-06-05 14:11] VITALS: BP 124/67; PULSE 115; RESP 17; TEMP 37.6; O2SAT 98
[2022-06-05] MEDS: Albuterol Sulfate 2.5 MG, Albuterol/Iprat 2.5/0.5MG 3 ML 3 ML INHALE (14:24)
[2022-06-05 14:26] VITALS: PULSE 109; RESP 18; O2SAT 100
[2022-06-05 14:37] LABS: MANUAL DIFF FLAG NO
[2022-06-05 14:41] LABS: Basophils Percent Auto 0.3 % (0-2); Eosinophils Percent Auto 0.1 % (0-4); Hemoglobin 8.2 g/dl (12.0-16.0); Imm Gran Pct Auto 2.8 % (0.0-0.4); Lymphocytes Absolute Auto 1.6 X10*3/uL (1.2-4.9); Lymphocytes Percent Auto 21.9 % (20-40); Mean Corpuscular HGB Conc 32.8 g/dl (31.0-35.0); Mean Corpuscular Hemoglobin 28.6 pg (27.0-33.0); Mean Corpuscular Volume 87.1 fL (80.0-98.0); Mean Platelet Volume 8.2 fL (9.4-12.3); Monocytes Absolute Auto 0.9 X10*3/uL (0.1-1.2); Monocytes Percent Auto 12.2 % (2-11); Neutrophils Absolute Auto 4.4 x10*3/uL (2.0-8.3); Neutrophils Percent Auto 62.7 % (45-73); Platelet Count 268 X10*3/uL (160-400); Red Blood Count 2.87 X10*6/uL (4.20-5.50); Red Cell Distribution Width 16.3 % (11.0-16.0); White Blood Count 7.1 X10*3/uL (4.8-10.8)
[2022-06-05 14:49] LABS: INTERNATIONAL NORM RATIO 0.9 (0.9-1.1); Prothrombin Time 10.5 SEC (10.0-13.1)
[2022-06-05 14:55] LABS: COVID-19 Test Negative (Negative)
[2022-06-05 14:58] LABS: Alanine Aminotransferase 15 U/L (0-31); Albumin Level 3.2 g/dL (3.5-5.0); Alkaline Phosphatase 78 U/L (39-117); Anion Gap 16 (12-20); Aspartate Amino Transferase 16 U/L (5-31); Bilirubin Total 0.3 mg/dL (0.0-1.0); Blood Urea Nitrogen 26 mg/dL (9-16); Calcium 8.3 mg/dL (8.4-10.2); Carbon Dioxide 22 mmol/L (22-29); Chloride 95 mmol/L (96-108); Creatinine Clr Calc Pharmacy 44.4; Estimated Glomerular Filt Rate 39; Glucose Random 126 mg/dL (60-115); Sodium 129 mmol/L (135-145)
[2022-06-05 15:03] LABS: B Type Natriuretic Peptide 44 pg/mL (<100)
[2022-06-05 15:43] LABS: OBS Int Ctl Valid YES; OBS1 NEGATIVE (NEGATIVE)
[2022-06-05] MEDS: predniSONE 20 MG TABLET 40 MG PO (16:47)
== END 2022-06-05 17:28 | disposition home or self-care (01) ==
PROVIDERS: Emergency Provider Internal Medicine; PCP Internal Medicine Geriatric Medicine
DX: R42 Dizziness and giddiness (principal); R60.0 Localized edema; R06.02 Shortness of breath; F17.210 Nicotine dependence, cigarettes, uncomplicated; Z20.822 Contact with and (suspected) exposure to COVID-19; Z71.6 Tobacco abuse counseling; Z79.899 Other long term (current) drug therapy
CPT/HCPCS: 36415; 71045; 80053; 82272; 83880; 84484; 85025; 85610; 87635; 93005; 94640; 99284

== ENCOUNTER 2022-06-07 21:09 | Emergency (ER) | payer MEDICARE, MEDICAID, SELFPAY ==
--- NOTE | 2022-06-07 21:40 | PC.NURSE ---
pt was having a panic attack rr elevated, pt sat 97% on room air, pt placed on 2l and sat improved to 100% with pt feeling better. pt placed in pvot 1 for o2 monitoring and triage. rn made aware.
[2022-06-07 22:12] VITALS: BP 114/64; PULSE 88; RESP 18; TEMP 36.7; O2SAT 100; BMI 36.0
[2022-06-07] MEDS: Albuterol Sulfate 2.5 MG, Albuterol/Iprat 2.5/0.5MG 3 ML 3 ML INHALE (23:15)
[2022-06-07 23:16] VITALS: PULSE 67; RESP 16; O2SAT 100
--- NOTE | 2022-06-07 23:32 | ED_ITS ---
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 with 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 anxiety on arrival Related Data Previous Rx's Medication Instructions Recorded acetaminophen 650 mg 1 tab PO BID PRN pain 30 days #60 04/29/22 tablet,extended release tabs albuterol sulfate 90 mcg/actuation 1 puff PO QID PRN wheezing 30 days 04/29/22 aerosol inhaler #1 units aspirin 81 mg tablet,delayed 1 tab PO QPM 30 days #30 tabs 04/29/22 release baclofen 20 mg tablet 20 mg PO DAILY PRN Back Pain 30 04/29/22 days #30 tabs fluticasone propionate 220 1 puff PO BID #12 grams 04/29/22 mcg/actuation HFA aerosol inhaler (Flovent HFA) folic acid 1 mg tablet 1 mg PO QAM 30 days #30 tabs 04/29/22 furosemide 20 mg tablet 0.5 tab PO DAILY 30 days #15 tabs 04/29/22 ipratropium 0.5 mg-albuterol 3 mg 1 amp inhalation Q4H PRN Wheezing 04/29/22 (2.5 mg base)/3 mL nebulization 30 days #30 multiple units soln metoprolol succinate 25 mg 1 tab PO QAM 30 days #30 tabs 04/29/22 tablet,extended release 24 hr montelukast 10 mg tablet 1 tab PO QPM 30 days #30 tabs 04/29/22 multivitamin (Daily-Cony tablet) 1 tab PO DAILY 30 days #30 tabs 04/29/22 omeprazole 40 mg capsule,delayed 1 cap PO QAM 30 days #30 caps 04/29/22 release ondansetron 4 mg disintegrating 4 mg PO Q12H PRN Nausea 30 days 04/29/22 tablet #30 tabs pravastatin 20 mg tablet 1 tab PO QPM 30 days #30 tabs 04/29/22 prednisone 20 mg tablet 40 mg PO DAILY 30 days #60 tabs 04/29/22 quetiapine 50 mg tablet 50 mg PO TID 30 days #90 tabs 04/29/22 sennosides 8.6 mg tablet (senna) 1 tab PO BID PRN constipation 30 04/29/22 days #60 tabs thiamine HCl (vitamin B1) 100 mg 1 tab PO QAM 30 days #30 tabs 04/29/22 tablet trazodone 50 mg tablet 50 mg PO BEDTIME PRN Insomnia 30 04/29/22 days #30 tabs doxycycline hyclate 100 mg tablet 100 mg PO BID #20 tabs 06/05/22 prednisone 20 mg tablet 40 mg PO DAILY #10 tabs 06/05/22 Allergies Allergy/AdvReac Type Severity Reaction Status Date / Time advair Allergy Unknown Unknown Uncoded 03/29/22 01:21 From PAXIL AdvReac Intermediate NAUSEA & Uncoded 03/29/22 01:21 VOMITING Review of Systems Review of Systems: Yes all other systems are reviewed and are negative [facility] Past Medical History Medical History Acute hyponatremia Alcohol use disorder Bipolar 1 disorder Bipolar I disorder Cannabis use disorder, moderate, dependence Chronic hyponatremia Congestive heart failure COPD (chronic obstructive pulmonary disease) Coronary artery disease Dementia Diabetes Hypertension Korsakoff disease Osteoarthritis Schizophrenia Sleep apnea Surgical History Hx of appendectomy Social History Social History Household Members: Spouse Housing: Apartment Do you presently have visiting nurse or other home services: Yes Unable to assess alcohol history related to: Unknown Alcohol intake: current Alcohol intake frequency: a few times a week Alcohol type: beer Patient Tobacco Use Status: Current everyday Tobacco user Tobacco use type: Cigarette Cigarettes Per Day: 6 Years Smoked: 53 e-Cigarette/Vaping Use: Never Used Second Hand Smoke Exposure: Yes Substance Use Type: Marijuana Advance Directives: Yes Advance Directives on File: Yes Advance Directives Date on File: 10/10/20 service: No Current occupational status: unemployed, disabled and other Sexual orientation: Straight/Heterosexual Physical Exam ED Vital Signs: Vital Signs - 24 hr 06/07/22 22:12 06/07/22 23:16 Temperature 98.1 F Pulse Rate 88 67 Respiratory Rate 18 16 Blood Pressure 114/64 Pulse Oximetry 100 Oxygen Delivery Method Nasal Cannula BMI result Body Mass Index 36.0 Appearance: Alert. Oriented X3. No acute distress. Anxious Eyes: PERRLA, No Nystagmus ENT: Pharynx normal. Oral Mucosa moist Neck: Normal inspection. Neck supple. CVS: Normal heart rate and rhythm. Pulses normal. Respiratory: No respiratory distress. Equal air entry bilateral, bilateral wheezing with rhonchi no crackles Abdomen: Soft and nontender. Bowel sounds are present, no mass palpable, no CVA tenderness Skin: Skin warm and dry. Normal skin color. Normal skin turgor. Extremities: 2+ lower extremity edema. No calf tenderness Neuro: Oriented X 3. No motor deficit. No sensory deficit.No cerebellar signs , cranial nerves II-XII intact Discharge Plan Discharge Clinical Impression: Bronchitis Patient Disposition: Home, Self-Care Instructions: Chronic Bronchitis (ED) Additional Instructions: Continue inhaler oxygen and antibiotic as prescribed Continue take your water pill Continue nebulizing treatment Follow-up with your PCP Prescriptions: No [facility] prednisone 20 mg tablet 40 mg PO DAILY Qty: 10 0RF doxycycline hyclate 100 mg tablet 100 mg PO BID Qty: 20 0RF quetiapine 50 mg Tablet 50 mg PO TID 30 Days Qty: 90 0RF trazodone 50 mg Tablet 50 mg PO BEDTIME PRN (Reason: Insomnia) 30 Days Qty: 30 0RF prednisone 20 mg Tablet 40 mg PO DAILY 30 Days Qty: 60 0RF multivitamin [Daily-Cony] Tablet 1 tab PO DAILY 30 Days Qty: 30 0RF sennosides [senna] 8.6 mg tablet 1 tab PO BID PRN (Reason: constipation) 30 Days Qty: 60 0RF ipratropium-albuterol 0.5 mg-3 mg(2.5 mg base)/3 mL solution for nebulization 1 amp inhalation Q4H PRN (Reason: Wheezing) 30 Days Qty: 30 0RF thiamine HCl (vitamin B1) 100 mg tablet 1 tab PO QAM 30 Days Qty: 30 0RF omeprazole 40 mg capsule,delayed release(DR/EC) 1 cap PO QAM 30 Days Qty: 30 0RF aspirin 81 mg tablet,delayed release (DR/EC) 1 tab PO QPM 30 Days Qty: 30 0RF acetaminophen 650 mg tablet extended release 1 tab PO BID PRN (Reason: pain) 30 Days Qty: 60 0RF baclofen 20 mg Tablet 20 mg PO DAILY PRN (Reason: Back Pain) 30 Days Qty: 30 0RF folic acid 1 mg tablet 1 mg PO QAM 30 Days Qty: 30 0RF montelukast 10 mg tablet 1 tab PO QPM 30 Days Qty: 30 0RF fluticasone propionate [Flovent HFA] 220 mcg/actuation HFA aerosol inhaler 1 puff PO BID Qty: 12 0RF pravastatin 20 mg tablet 1 tab PO QPM 30 Days Qty: 30 0RF furosemide 20 mg tablet 0.5 tab PO DAILY 30 Days Qty: 15 0RF metoprolol succinate 25 mg tablet extended release 24 hr 1 tab PO QAM 30 Days Qty: 30 0RF albuterol sulfate 90 mcg/actuation HFA aerosol inhaler 1 puff PO QID PRN (Reason: wheezing) 30 Days Qty: 1 0RF ondansetron 4 mg Tablet,Disintegrating 4 mg PO Q12H PRN (Reason: Nausea) 30 Days Qty: 30 0RF Interventions: ED Discharge Assessment Last Done: 06/08/22 01:16
[2022-06-08] MEDS: predniSONE 20 MG TABLET 60 MG PO (00:45)
--- NOTE | 2022-06-08 02:32 | PC.NURSE ---
This US/Pct called [facility] at 0233 for A BLS transfer home,Janae from [facility] stated there are no trucks available and will be booked for 0800AM. RN and recruitment consultant aware
--- NOTE | 2022-06-08 05:05 | PC.NURSE ---
pt given warm blankets, head of bed up and down, brought to the bathroom via wheelchair. call jones at side waiting for ambulance
== END 2022-06-08 08:40 | disposition home or self-care (01) ==
PROVIDERS: Emergency Provider Internal Medicine; PCP Internal Medicine Geriatric Medicine
DX: J40 Bronchitis, not specified as acute or chronic (principal); F17.210 Nicotine dependence, cigarettes, uncomplicated; Z71.6 Tobacco abuse counseling; Z79.899 Other long term (current) drug therapy
CPT/HCPCS: 94640; 99284

== ENCOUNTER 2022-07-22 13:15 | Emergency (ER) | payer MEDICARE, MEDICAID, SELFPAY ==
--- NOTE | ~2022-07-22 | XR_ITS ---
EXAMINATION: XR CHEST CLINICAL INFORMATION: Cough. COMPARISON: 06/05/2022 chest radiograph TECHNIQUE: Frontal view of the chest was obtained. FINDINGS: The lungs are clear. The heart and mediastinal structures are unremarkable. Mild bilateral glenohumeral degenerative joint changes are noted. XR/XR chest 1V IMPRESSION: No acute cardiopulmonary process.
--- OUTSIDE RECORDS SUMMARY | 2022-07-22 14:14 | XMS_ITS | Continuity of Care Document ---
:1955 Author Organization [facility] Address [address] [place] [address]- Care Team Providers Name Role Phone Name Ryder HARTLEY Primary Care Phys[place] [facility] [place] - 11/04/19 [facility] [address] [place] [address]- [facility] Attending Physician: Elmer Louis Admitting Physician: AdmtrElmer Referring Physician: Admtr, Ar8 Allergies, Adverse Reactions, Alerts Substance Reaction Severity Status Paxil Active Medications albuterol-ipratropium 3 mg-0.5 mg/3 ml inhalation solution 3 mL, Inhalation, 4 times a day, # 360 each, 0 Refills, Maintenance, 09/15/17 13:13:03, Solution Start Date: 09/15/17 Status: Orderedaspirin 81 mg oral tablet 1 tablet = 81 mg, By Mouth, Daily, 0 Refills, Maintenance, 09/15/17 13:16:02 Start Date: 09/15/17 Status: OrderedCeleXA 40 mg oral tablet 40 mg, 1, tablet, By Mouth, Daily, Refills 0, Maintenance, 09/15/17 13:14:53 Start Date: 09/15/17 Status: OrderedclonazePAM 0.5 mg oral tablet 1 tablet = 0.5 mg, By Mouth, 3 times a day, 0 Refills, Maintenance, 09/15/17 13:14:45 Start Date: 09/15/17 Status: OrderedLasix 20 mg oral tablet 20 mg, 1, tablet, By Mouth, Daily, Refills 0, Maintenance, 09/15/17 13:13:14 Start Date: 09/15/17 Status: OrderedLyrica 150 mg oral capsule 1 capsule = 150 mg, By Mouth, 3 times a day, # 90 capsule, 0 Refills, Maintenance, 09/15/17 13:15:40, Capsule Start Date: 09/15/17 Status: OrderedmetFORMIN 500 mg oral tablet 1 tablet = 500 mg, By Mouth, 2 times a day, 0 Refills, Maintenance, 09/15/17 13:13:23 Start Date: 09/15/17 Status: Orderedmetoprolol 25 mg oral tablet 25 mg, 1, tablet, By Mouth, 2 times a day, Refills 0, Maintenance, 09/15/17 13:15:15 Start Date: 09/15/17 Status: OrderedNuLYTELY with Flavor Packs oral powder for reconstitution 240 mL, By Mouth, Every 15 minutes, # 4,000 mL, 0 Refills, Maintenance, 09/15/17 13:23:42, 240 mL ByMouth Every 15 minutes Start Date: 09/15/17 Status: Orderedomeprazole 20 mg oral enteric coated capsule 1 capsule = 20 mg, By Mouth, 2 times a day, # 28 capsule, 0 Refills, Maintenance, 10/20/17 18:44:48,EC Capsule Start Date: 10/20/17 Stop Date: 11/03/17 Status: Orderedpantoprazole 40 mg oral delayed release tablet 1 tablet = 40 mg, By Mouth, Daily, 0 Refills, Maintenance, 09/15/17 13:13:35 Start Date: 09/15/17 Status: Orderedpravastatin 40 mg oral tablet 1 tablet = 40 mg, By Mouth, Daily, 0 Refills, Maintenance, 09/15/17 13:15:25 Start Date: 09/15/17 Status: OrderedProventil HFA 90 mcg/inh inhalation aerosol with adapter 1, puffs, Inhalation, 4 times a day, PRN, # 25 Gm, Refills 0, Maintenance, 09/15/17 13:16:19, Aerosol Start Date: 09/15/17 Status: Orderedsenna 17.2 mg oral tablet 1 tablet = 17.2 mg, By Mouth, 2 times a day, PRN for constipation, # 12 tablet, 0 Refills, Maintenance, 09/15/17 13:14:04, Tablet Start Date: 09/15/17 Status: OrderedSEROquel 100 mg oral tablet 100 mg, 1, tablet, By Mouth, 2 times a day, Refills 0, Maintenance, 09/15/17 13:15:03 Start Date: 09/15/17 Status: OrderedSingulair 10 mg oral tablet 10 mg, 1, tablet, By Mouth, Daily, Refills 0, Maintenance, 09/15/17 13:14:19 Start Date: 09/15/17 Status: OrderedTylenol 8 Hour Caplet 650 mg oral tablet, extended release 2 tablet = 1,300 mg, By Mouth, Every 8 hours, 0 Refills, Maintenance, 09/15/17 13:12:22 Start Date: 09/15/17 Status: OrderedVitamin D3 1000 intl units oral capsule 1 capsule = 1,000 International_Units, By Mouth, Daily, 0 Refills, Maintenance, 09/15/17 13:14:36 Start Date: 09/15/17 Status: Ordered Problem List Condition Effective Dates Status Health Status Informant Diabetes(Confirmed) Active HTN (hypertension)(Confirmed) Active Social History Social History Type Response Smoking Status Current every day smoker; To bacco user in household: Yes; Type: Cigarettes entered on: 09/15/17 Sex
--- OUTSIDE RECORDS SUMMARY | 2022-07-22 14:14 | XMS_ITS | Continuity of Care Document ---
:1955 Author Organization [facility] Address [address] [place] [address]- Care Team Providers Name Role Phone Name Ryder HARTLEY Primary Care Physician [place] [facility] [place] 10/10[place]19 - 11/24/19 [facility] [address] [place] [address]- [facility] Attending Physician: Nita Mckeon NP Admitting Physician: Mike HORTA, Nita Referring Physician: Marine Collins CNM Allergies, Adverse Reactions, Alerts Substance Reaction Severity [...]
[2022-07-22 14:27] VITALS: BP 137/70; BP 144/92; PULSE 116; PULSE 89; RESP 24; TEMP 37.2; O2SAT 96; O2SAT 99; BMI 31.1
--- NOTE | 2022-07-22 14:35 | PC.NURSE ---
pt is a/o x 2 no sob/sandra noted skin pink warm dry speaks in full sentences. lungs - exp wheezing throughout. heart sounds regular. abd obese soft and non-tender.. no edema noted. pt aware of juvenal of care.
--- NOTE | 2022-07-22 14:41 | ED.SOB ---
HPI - SOB/Dyspnea General Chief Complaint: Dyspnea Stated Complaint: DIFF BREATHING Time Seen by Provider: 07/22/22 14:31 Source: patient and old records reviewed History of Present Illness HPI Narrative: Patient with a history of COPD and asthma presenting with shortness of breath for the past few days. No fevers or chills. Positive white phlegm which patient states is baseline. No chest pain She has had multiple presentations for similar symptoms. Multiple diagnoses of bronchitis in the past. Related Data Previous Rx's Medication Instructions Recorded acetaminophen 650 mg 1 tab PO BID PRN pain 30 days #60 04/29/22 tablet,extended release tabs albuterol sulfate 90 mcg/actuation 1 puff PO QID PRN wheezing 30 days 04/29/22 aerosol inhaler #1 units aspirin 81 mg tablet,delayed 1 tab PO QPM 30 days #30 tabs 04/29/22 release baclofen 20 mg tablet 20 mg PO DAILY PRN Back Pain 30 04/29/22 days #30 tabs fluticasone propionate 220 1 puff PO BID #12 grams 04/29/22 mcg/actuation HFA aerosol inhaler (Flovent HFA) folic acid 1 mg tablet 1 mg PO QAM 30 days #30 tabs 04/29/22 furosemide 20 mg tablet 0.5 tab PO DAILY 30 days #15 tabs 04/29/22 ipratropium 0.5 mg-albuterol 3 mg 1 amp inhalation Q4H PRN Wheezing 04/29/22 (2.5 mg base)/3 mL nebulization 30 days #30 multiple units soln metoprolol succinate 25 mg 1 tab PO QAM 30 days #30 tabs 04/29/22 tablet,extended release 24 hr montelukast 10 mg tablet 1 tab PO QPM 30 days #30 tabs 04/29/22 multivitamin (Daily-Cony tablet) 1 tab PO DAILY 30 days #30 tabs 04/29/22 omeprazole 40 mg capsule,delayed 1 cap PO QAM 30 days #30 caps 04/29/22 release ondansetron 4 mg disintegrating 4 mg PO Q12H PRN Nausea 30 days 04/29/22 tablet #30 tabs pravastatin 20 mg tablet 1 tab PO QPM 30 days #30 tabs 04/29/22 prednisone 20 mg tablet 40 mg PO DAILY 30 days #60 tabs 04/29/22 quetiapine 50 mg tablet 50 mg PO TID 30 days #90 tabs 04/29/22 sennosides 8.6 mg tablet (senna) 1 tab PO BID PRN constipation 30 04/29/22 days #60 tabs thiamine HCl (vitamin B1) 100 mg 1 tab PO QAM 30 days #30 tabs 04/29/22 tablet trazodone 50 mg tablet 50 mg PO BEDTIME PRN Insomnia 30 04/29/22 days #30 tabs doxycycline hyclate 100 mg tablet 100 mg PO BID #20 tabs 06/05/22 prednisone 20 mg tablet 40 mg PO DAILY #10 tabs 06/05/22 albuterol sulfate 90 mcg/actuation 2 puff inhalation QID PRN 07/22/22 aerosol inhaler shortness of breath or wheezing #8.5 grams azithromycin 250 mg tablet 250 mg PO DAILY 4 days #4 tabs 07/22/22 prednisone 20 mg tablet 40 mg PO DAILY #8 tabs 07/22/22 Allergies Allergy/AdvReac Type Severity Reaction Status Date / Time advair Allergy Unknown Unknown Uncoded 03/29/22 01:21 From PAXIL AdvReac Intermediate NAUSEA & Uncoded 03/29/22 01:21 VOMITING Review of Systems Constitutional: Comments: No fevers or chills Cardiovascular: Comments: No chest pain Respiratory: Comments: Positive cough with white phlegm. Dyspnea especially on exertion. Gastrointestinal: Comments: No nausea vomiting or abdominal pain Musculoskeletal: Comments: Bilateral foot cramping which is common for her Neurologic: Comments: No focal weakness Psychiatric: Comments: Positive anxiety PMFSH Past Medical History Medical History Acute hyponatremia Alcohol use disorder Bipolar 1 disorder Bipolar I disorder Cannabis use disorder, moderate, dependence Chronic hyponatremia Congestive heart failure COPD (chronic obstructive pulmonary disease) Coronary artery disease Dementia Diabetes Hypertension Korsakoff disease Osteoarthritis Schizophrenia Sleep apnea Surgical History Hx of appendectomy Social History Social History Household Members: Spouse Housing: Apartment Do you presently have visiting nurse or other home services: Yes Unable to assess alcohol history related to: Unknown Alcohol intake: never Patient Tobacco Use Status: Current everyday Tobacco user Tobacco use type: Cigarette Cigarettes Per Day: 6 Years Smoked: 53 e-Cigarette/Vaping Use: Never Used Second Hand Smoke Exposure: Yes Use of substances other than those prescribed or required for medical reasons: No Substance Use Type: Marijuana Advance Directives: Yes Advance Directives on File: Yes Advance Directives Date on File: 10/10/20 service: No Current occupational status: unemployed, disabled and other Sexual orientation: Straight/Heterosexual Physical Exam Vital Signs: Vital Signs: Last Vital Signs Temp 99.0 F 07/22/22 14:27 Pulse 88 07/22/22 14:51 Resp 18 07/22/22 14:51 BP 137/70 07/22/22 14:27 Pulse Ox 96 07/22/22 14:27 O2 Del Method 07/22/22 14:27 BMI result Body Mass Index 31.1 Const: Other: Awake alert in no acute distress. Vital signs stable and oxygen saturation of 99% on room air Resp: Other: Fair air entry bilaterally with expiratory wheezing. No rales or rhonchi Cardio: Other: Regular rate and rhythm without murmurs rubs or gallops GI: Other: Soft nontender nondistended Skin: Other: Warm and dry without rash Neuro: Other: Nonfocal Course Course Course Narrative: COPD exacerbation Rule out pneumonia Will treat with albuterol and prednisone 16:01. X-ray on my interpretation shows small right middle lobe infiltrate, which is changed from May. Will treat with Zithromax and discharge home Discharge Plan Discharge Clinical Impression: Pneumonia, COPD (chronic obstructive pulmonary disease) Patient Disposition: Home, Self-Care Instructions: COPD (Chronic Obstructive Pulmonary Disease) (ED), Pneumonia (ED) Prescriptions: New albuterol sulfate 90 mcg/actuation HFA aerosol inhaler 2 puff inhalation QID PRN (Reason: shortness of breath or wheezing) Qty: 8.5 0RF prednisone 20 mg tablet 40 mg PO DAILY Qty: 8 0RF azithromycin 250 mg tablet 250 mg PO DAILY 4 Days Qty: 4 0RF Rx Instructions: start on day 2 of therapy No Action prednisone 20 mg tablet 40 mg PO DAILY Qty: 10 0RF doxycycline hyclate 100 mg tablet 100 mg PO BID Qty: 20 0RF quetiapine 50 mg Tablet 50 mg PO TID 30 Days Qty: 90 0RF trazodone 50 mg Tablet 50 mg PO BEDTIME PRN (Reason: Insomnia) 30 Days Qty: 30 0RF prednisone 20 mg Tablet 40 mg PO DAILY 30 Days Qty: 60 0RF multivitamin [Daily-Cony] Tablet 1 tab PO DAILY 30 Days Qty: 30 0RF sennosides [senna] 8.6 mg tablet 1 tab PO BID PRN (Reason: constipation) 30 Days Qty: 60 0RF ipratropium-albuterol 0.5 mg-3 mg(2.5 mg base)/3 mL solution for nebulization 1 amp inhalation Q4H PRN (Reason: Wheezing) 30 Days Qty: 30 0RF thiamine HCl (vitamin B1) 100 mg tablet 1 tab PO QAM 30 Days Qty: 30 0RF omeprazole 40 mg capsule,delayed release(DR/EC) 1 cap PO QAM 30 Days Qty: 30 0RF aspirin 81 mg tablet,delayed release (DR/EC) 1 tab PO QPM 30 Days Qty: 30 0RF acetaminophen 650 mg tablet extended release 1 tab PO BID PRN (Reason: pain) 30 Days Qty: 60 0RF baclofen 20 mg Tablet 20 mg PO DAILY PRN (Reason: Back Pain) 30 Days Qty: 30 0RF folic acid 1 mg tablet 1 mg PO QAM 30 Days Qty: 30 0RF montelukast 10 mg tablet 1 tab PO QPM 30 Days Qty: 30 0RF fluticasone propionate [Flovent HFA] 220 mcg/actuation HFA aerosol inhaler 1 puff PO BID Qty: 12 0RF pravastatin 20 mg tablet 1 tab PO QPM 30 Days Qty: 30 0RF furosemide 20 mg tablet 0.5 tab PO DAILY 30 Days Qty: 15 0RF metoprolol succinate 25 mg tablet extended release 24 hr 1 tab PO QAM 30 Days Qty: 30 0RF albuterol sulfate 90 mcg/actuation HFA aerosol inhaler 1 puff PO QID PRN (Reason: wheezing) 30 Days Qty: 1 0RF ondansetron 4 mg Tablet,Disintegrating 4 mg PO Q12H PRN (Reason: Nausea) 30 Days Qty: 30 0RF
[2022-07-22 14:51] VITALS: PULSE 88; RESP 18; O2SAT 95
[2022-07-22] MEDS: Albuterol Sulfate (0.083%) 2.5 MG/3 ML VIAL.NEB INHALE (14:51)
[2022-07-22] MEDS: predniSONE 20 MG TABLET 60 MG PO (15:02)
[2022-07-22] MEDS: Azithromycin 500 MG TABLET PO (16:40)
--- NOTE | 2022-07-22 16:44 | MHC.CM.ED ---
CM informed by Noreen KIRK that she attempted to d/c this patient to home and spoke with HCP/S.O. Juanjo Reginald ([phone]), who told her he cannot care for her now and that he needs to speak with the CM. This life underwriter called Juanjo back and left messages to return call at [phone]. This patient and uJanjo are well known to CM and this life underwriter. Pt has advanced dementia and the HCP has been invoked (lifelong) since 08/28/20. Pt has had numerous ED visits and pt is not appropriate for STR, as she cannot follow directions for PT. Pt was admitted to [facility] on 04/24 for medication management. CM will continue to attempt to reach Juanjo regarding safe d/c plan. In the past, Juanjo has asked for retirement care. Juanjo has not been willing to place pt in LTC in the past. Noreen KIRK aware. CM will continue to monitor for safe d/c plan. Pt will remain in the ED until Juanjo can be reached.
--- NOTE | 2022-07-22 17:26 | MHC.CM.ED ---
CM spoke with Juanjo, HCP invoked and S.O. after 3 phone calls. Juanjo had questions regarding her diagnosis and D/C plan. CM explained that patient has a pneumonia that is unchanged from May and does not meet criteria for admission. Explained that patient is discharged home with antibiotics. Juanjo then asked CM about her brain-when will it get better. CM explained that pt has dementia and that it will get better. Reminded Juanjo that pt has had PT assessments in the past, but she cannot follow directions, so STR is not an option. Reminded Juanjo that past recommendations have been home with 24/7 care or prison snf care. Juanjo does not want LTC. Has daily [facility] 2 hours per day and daily VNA for medication management. States VNA is [facility]. Encouraged Juanjo to speak with pt provider regarding more care. Explained that CM cannot arrange for home care [facility] hours. Juanjo is willing to take patient home but does not have transportation and is requesting patient return by ambulance. Noreen KIRK aware. [place] to make transportation arrangements. Pt has advanced dementia and cannot safely be transported home unless by ambulance.
== END 2022-07-22 21:54 | disposition home or self-care (01) ==
PROVIDERS: Emergency Provider Emergency Medicine; PCP Internal Medicine Geriatric Medicine
DX: J18.9 Pneumonia, unspecified organism (principal); J44.9 Chronic obstructive pulmonary disease, unspecified; R06.02 Shortness of breath; Z79.899 Other long term (current) drug therapy; F17.210 Nicotine dependence, cigarettes, uncomplicated; Z71.6 Tobacco abuse counseling
CPT/HCPCS: 71045; 94640; 96374; 99284

== ENCOUNTER 2022-07-25 14:32 | Inpatient (IN) | payer MEDICARE, MEDICAID, SELFPAY ==
--- NOTE | ~2022-07-25 | XR_ITS ---
EXAMINATION: XR CHEST CLINICAL INFORMATION: Shortness of breath. COMPARISON: Chest x-ray 07/22/2022 TECHNIQUE: 2 views of the chest were obtained. FINDINGS: Lungs are clear. No pulmonary vascular congestion. There is no pleural effusion. The heart size is normal. The cardiac and mediastinal contours are normal. There are calcifications of the thoracic aorta. There are multilevel degenerative changes of dorsal spine. Degenerative changes of the glenohumeral joints bilateral, right worse than left. XR/XR chest 2V IMPRESSION: Unremarkable examination.
--- NOTE | ~2022-07-25 | US_ITS ---
EXAMINATION: US VENOUS ULTRASOUND WITH DOPPLER LOWER EXTREMITY, BILATERAL CLINICAL INFORMATION: Shortness of breath. Leg pain. Concern for deep vein thrombosis. COMPARISON: Nuclear medicine pulmonary perfusion exam of 07/25/2022. Venous ultrasound exam from 02/08/2022. Abdomen CT from 07/25/2022. TECHNIQUE: Ultrasound of the deep veins is performed from the hip to the calf with compression sonography and color and pulse Doppler assessment. Spectral analysis with color-flow imaging is performed. FINDINGS: FINDINGS: The common femoral vein is compressible and exhibits a normal phasic waveform, bilaterally; this suggests that the iliac veins are widely patent above. Within each proximal thigh, the visualized profunda femoris vein is patent. The visualized greater saphenous veins and saphenofemoral junctions are normal. Superficial femoral vein is patent in the proximal, mid and distal aspect of each thigh. Popliteal vein is normal to the level of the trifurcation, bilaterally, and the visualized posterior tibial and peroneal veins are patent. No evidence of Walters's cyst. Images at the level of the right common femoral vein allow visualization of the right hip joint effusion. Note that bilateral hip joint effusions are present in this patient with severe osteoarthritis of the hips (as seen on 07/25/2022). US/US venous duplex LE BI IMPRESSION: No evidence of deep vein thrombosis in either lower extremity.
--- NOTE | ~2022-07-25 | CT_ITS ---
EXAMINATION: CT CHEST, ABDOMEN AND PELVIS WITHOUT CONTRAST CLINICAL INFORMATION: Shortness of breath, EKG changes, left lower quadrant tenderness COMPARISON: CT PE protocol 02/24/2020 TECHNIQUE: Multidetector volumetric imaging was performed of the chest, abdomen and pelvis without intravenous contrast. Oral contrast was administered. Sagittal and coronal reformatted images were obtained on the technologist's workstation. This CT examination was performed using dose optimization techniques as appropriate, variously including the following: *Automated exposure control *Adjustment of mA and/or kV according to patient size (this includes techniques or standardized protocols for targeted exams where dose is matched to indication/reason for exam; i.e. extremities or head) *Use of iterative reconstruction technique DLP: 1088 mGy-cm FINDINGS: CHEST WALL: Unremarkable. ABDOMINAL AND PELVIC WALL: Small fat-containing umbilical hernia. AXILLA: No lymphadenopathy. MEDIASTINUM: Heart is normal in size. No mediastinal lymphadenopathy. Lack of intravenous contrast limits assessment for hilar adenopathy. Coronary artery calcification is present. PLEURA: There is no pleural effusion. LIVER AND BILIARY TREE: Unremarkable. GALLBLADDER: Unremarkable PANCREAS: Unremarkable SPLEEN: Unremarkable ADRENAL GLANDS: Unremarkable. KIDNEYS AND URETERS: Unremarkable. UPPER GASTROINTESTINAL TRACT: The stomach and duodenum are unremarkable. VASCULAR: Unremarkable. ABDOMINOPELVIC LYMPH NODES: No lymphadenopathy. FREE FLUID: No free fluid. BLADDER: Unremarkable PELVIC VISCERA: Unremarkable LOWER GASTROINTESTINAL TRACT: Colonic diverticulosis without evidence of diverticulitis. No findings to suggest appendicitis. OSSEOUS STRUCTURES: Advanced degenerative changes of the right greater than left shoulders. Advanced degenerative changes of the hips. Changes of the lumbar spine. LUNGS: Tiny calcified right upper lobe granuloma. Respiratory motion limits evaluation of the pulmonary parenchyma. Possible 3 mm solid left lower lobe pulmonary nodule, although respiratory motion makes it difficult to confirm. CT/CT abdomen pelvis wo IV con IMPRESSION: * Respiratory motion limits evaluation of the pulmonary parenchyma. Possible 3 mm solid left lower lobe pulmonary nodule, although respiratory motion makes it difficult to confirm. Assuming patient has no history of malignancy, recommend follow-up per Fleischner Society recommendations. According to the UPDATED 2017 Fleischner Society recommendations, the advised followup imaging for solid nodules < 6 mm is: LOW RISK PATIENT: No routine follow up. HIGH RISK PATIENT: Optional CT at 12 months. * No acute findings to explain symptoms of abdominal pain. * Additional incidental or chronic findings are as above detailed.
--- NOTE | ~2022-07-25 | NM_ITS ---
EXAMINATION: MO LUNG IMAGE PERFUSION CLINICAL INFORMATION: Shortness of breath COMPARISON: CT chest 07/25/2022 TECHNIQUE: Perfusion only. 4 mCi technetium 99m MAA was given. Images obtained over the chest in multiple projections. FINDINGS: Homogeneous perfusion of the right and left lungs. No perfusion defect. No evidence of pulmonary embolism. NM/NM pul perfusion IMPRESSION: Normal perfusion lung scan. No evidence of pulmonary embolism.
[2022-07-25 14:44] VITALS: BP 101/60; BP 108/70; PULSE 106; PULSE 109; RESP 18; TEMP 37.1; O2SAT 96; O2SAT 97; BMI 36.0
--- NOTE | 2022-07-25 14:54 | ECG_ITS ---
Test Reason : DYSPNEA Blood Pressure : / mmHG Vent. Rate : 117 BPM Atrial Rate : 117 BPM P-R Int : 138 ms QRS Dur : 090 ms QT Int : 342 ms P-R-T Axes : 059 -06 073 degrees QTc Int : 477 ms Sinus tachycardia with Premature atrial complexes ST & T wave abnormality, consider anterior ischemia Incomplete right bundle branch block Abnormal ECG When compared with ECG of 05-JUN-2022 14:30, Premature atrial complexes are now Present T wave inversion now evident in Anterior leads Referred By: Viktoria Guerra Electronically Signed By:ALVARO SEVERINO MD
--- NOTE | 2022-07-25 14:57 | ED_ITS ---
HPI - SOB/Dyspnea General Chief Complaint: General Medical <Viktoria Guerra MILAGRO - Last Filed: 07/25/22 17:49> Stated Complaint: general weakness <Viktoria Guerra MILAGRO - Last Filed: 07/25/22 17:49> Time Seen by Provider: 07/25/22 14:45 <Viktoria GuerraMILAGRO - Last Filed: 07/25/22 17:49> Source: patient <Viktoria Guerra MILAGRO - Last Filed: 07/25/22 17:49> Mode of arrival: EMS <Viktoria Guerra MILAGRO - Last Filed: 07/25/22 17:49> Limitations: language barrier (Dominican-speaking medical doctor utilized) <Viktoria Guerra MILAGRO - Last Filed: 07/25/22 17:49> History of Present Illness HPI Narrative: Patient is a 67-year-old female who presents to emergency department via EMS, with family reports of difficulty taking care of patient at home due to increasing weakness. Patient with increasing shortness of breath, was seen here 2 days ago diagnosed with pneumonia was discharged home with antibiotics. Patient reportedly has visiting nurse services that come during the week, but per patient's report there only there for half an hour. Additionally, she is reporting diffuse abdominal pain, nausea, and decreased appetite. Also reporting pain to the bilateral lower extremities. Denies fevers, chills, vomiting, diarrhea, constipation, dysuria, urinary frequency/urgency/hesitancy, numbness or tingling of the extremities. <Viktoria GuerraMILAGRO - Last Filed: 07/25/22 17:49> Related Data Home Medications: Previous Rx's Medication Instructions Recorded acetaminophen 650 mg 1 tab PO BID PRN pain 30 days #60 04/29/22 tablet,extended release tabs albuterol sulfate 90 mcg/actuation 1 puff PO QID PRN wheezing 30 days 04/29/22 aerosol inhaler #1 units aspirin 81 mg tablet,delayed 1 tab PO QPM 30 days #30 tabs 04/29/22 release baclofen 20 mg tablet 20 mg PO DAILY PRN Back Pain 30 04/29/22 days #30 tabs fluticasone propionate 220 1 puff PO BID #12 grams 04/29/22 mcg/actuation HFA aerosol inhaler (Flovent HFA) folic acid 1 mg tablet 1 mg PO QAM 30 days #30 tabs 04/29/22 furosemide 20 mg tablet 0.5 tab PO DAILY 30 days #15 tabs 04/29/22 ipratropium 0.5 mg-albuterol 3 mg 1 amp inhalation Q4H PRN Wheezing 04/29/22 (2.5 mg base)/3 mL nebulization 30 days #30 multiple units soln metoprolol succinate 25 mg 1 tab PO QAM 30 days #30 tabs 04/29/22 tablet,extended release 24 hr montelukast 10 mg tablet 1 tab PO QPM 30 days #30 tabs 04/29/22 multivitamin (Daily-Cony tablet) 1 tab PO DAILY 30 days #30 tabs 04/29/22 omeprazole 40 mg capsule,delayed 1 cap PO QAM 30 days #30 caps 04/29/22 release ondansetron 4 mg disintegrating 4 mg PO Q12H PRN Nausea 30 days 04/29/22 tablet #30 tabs pravastatin 20 mg tablet 1 tab PO QPM 30 days #30 tabs 04/29/22 prednisone 20 mg tablet 40 mg PO DAILY 30 days #60 tabs 04/29/22 quetiapine 50 mg tablet 50 mg PO TID 30 days #90 tabs 04/29/22 sennosides 8.6 mg tablet (senna) 1 tab PO BID PRN constipation 30 04/29/22 days #60 tabs thiamine HCl (vitamin B1) 100 mg 1 tab PO QAM 30 days #30 tabs 04/29/22 tablet trazodone 50 mg tablet 50 mg PO BEDTIME PRN Insomnia 30 04/29/22 days #30 tabs doxycycline hyclate 100 mg tablet 100 mg PO BID #20 tabs 06/05/22 prednisone 20 mg tablet 40 mg PO DAILY #10 tabs 06/05/22 albuterol sulfate 90 mcg/actuation 2 puff inhalation QID PRN 07/22/22 aerosol inhaler shortness of breath or wheezing #8.5 grams azithromycin 250 mg tablet 250 mg PO DAILY 4 days #4 tabs 07/22/22 prednisone 20 mg tablet 40 mg PO DAILY #8 tabs 07/22/22 <Viktoria Guerra CNP - Last Filed: 07/25/22 17:49> Allergies/Adverse Reactions: Allergies Allergy/AdvReac Type Severity Reaction Status Date / Time advair Allergy Unknown Unknown Uncoded 03/29/22 01:21 From PAXIL AdvReac Intermediate NAUSEA & Uncoded 03/29/22 01:21 VOMITING <Viktoria Guerra CNP - Last Filed: 07/25/22 17:49> Review of Systems Review of Systems: Constitutional : No Weight loss, No Fever, No Chills ENT/Mouth :? No sore throat, No Rhinorrhea Eyes: No Swelling, No Redness Cardiovascular : No Chest Pain, positive SOB, No Edema Respiratory : Positive Cough, positive Sputum, positive Wheezing Gastrointestinal : Positive Nausea, Positive Vomiting, positive Diarrhea, positive abdominal pain, No Hematochezia, No Melena Genitourinary : No Dysuria, No Urinary Frequency, No Hematuria, No Urgency? Musculoskeletal : No joint pain, No Myalgias, No Joint Swelling Skin : No Skin Lesions, No rash Neuro : No Weakness, No Numbness, No Dizziness, No Headache Psych : No Anxiety/Panic, No Depression Heme/Lymph: No Bruising, No Lymphadenopathy Endocrine : No Polyuria, No Polydipsia <Viktoria Guerra CNP - Last Filed: 07/25/22 17:49> Yes all other systems are reviewed and are negative <Viktoria Guerra CNP - Last Filed: 07/25/22 17:49> [facility] Past Medical History Attestation statement: The following information was validated with the patient. <Viktoria Guerra CNP - Last Filed: 07/25/22 17:49> Source: old records reviewed <Viktoria Guerra CNP - Last Filed: 07/25/22 17:49> Medical History: Medical History Acute hyponatremia Alcohol use disorder Bipolar 1 disorder Bipolar I disorder Cannabis use disorder, moderate, dependence Chronic hyponatremia Congestive heart failure COPD (chronic obstructive pulmonary disease) Coronary artery disease Dementia Diabetes Hypertension Korsakoff disease Osteoarthritis Schizophrenia Sleep apnea <Viktoria Guerra CNP - Last Filed: 07/25/22 17:49> Surgical History: Surgical History Hx of appendectomy <Viktoria Guerra CNP - Last Filed: 07/25/22 17:49> Social History Social History: Social History Household Members: Spouse Housing: Apartment Do you presently have visiting nurse or other home services: Yes Unable to assess alcohol history related to: Unknown Alcohol intake: former Patient Tobacco Use Status: Former Tobacco user Tobacco use type: Cigarette Cigarettes Per Day: 6 Years Smoked: 53 e-Cigarette/Vaping Use: Never Used Second Hand Smoke Exposure: Yes Substance Use Type: Marijuana Advance Directives: Yes Advance Directives on File: Yes Advance Directives Date on File: 10/10/20 service: No Current occupational status: unemployed, disabled and other Sexual orientation: Straight/Heterosexual <Viktoria Guerra CNP - Last Filed: 07/25/22 17:49> Physical Exam Vital Signs: Vital Signs: Last Vital Signs Temp 98.8 F 07/25/22 14:44 Pulse 107 H 07/25/22 15:46 Resp 23 H 07/25/22 15:46 BP 101/60 07/25/22 14:44 Pulse Ox 96 07/25/22 14:44 O2 Del Method 07/25/22 14:44 BMI result Body Mass Index 36.0 <Viktoria Guerra CNP - Last Filed: 07/25/22 17:49> Vital Signs: Last Vital Signs Temp 98.8 F 07/25/22 14:44 Pulse 107 H 07/25/22 15:46 Resp 23 H 07/25/22 15:46 BP 101/60 07/25/22 14:44 Pulse Ox 96 07/25/22 14:44 O2 Del Method 07/25/22 14:44 BMI result Body Mass Index 36.0 <ALICIA Oconnell - Last Filed: 07/25/22 20:42> Appearance: Alert.?Oriented to person, place and time. No acute distress.?Normal affect. Eyes: Pupils equal, round and reactive to light.? ENT: Pharynx normal.?? Neck: Normal inspection.? Neck supple.?? CVS: Heart sounds normal. Normal heart rate and rhythm.? Pulses normal.?? Respiratory: No respiratory distress.? Lung sounds with diffuse expiratory wheezing Abdomen: Soft with left lower quadrant tenderness upon palpation. Normoactive bowel sounds. Skin: Skin warm and dry.? Normal skin color.? Extremities: No lower extremity edema.? No calf ttp. CMS is intact to bilateral lower extremities, 2+ DP/PT pulse bilaterally Neuro: Moves all extremities spontaneously. Sensation intact bilaterally. CN II- XII intact. No focal neuro deficits. <Viktoria Guerra CNP - Last Filed: 07/25/22 17:49> Course Course Course Narrative: Patient is a 67-year-old female with a past medical history of bipolar disorder, schizophrenia, CAD, CHF, COPD, dementia, diabetes, hypertension, sleep apnea presents to the emergency department for evaluation of weakness, shortness of breath, and abdominal pain. Of note patient was seen in the emergency dep artment 3 days ago 07/22/2022 was diagnosed with right middle lobe pneumonia and discharged home on Zithromax. Patient reports increasing shortness of breath, family reports generalized weakness and inability to care for her at home, patient dishes Ali is having abdominal pain. Abdominal exam notable for left lower quadrant tenderness, has associated nausea and decreased appetite will obtain CT of the abdomen and pelvis to evaluate for diverticulitis, obstruction, or additional intra-abdominal pathology. Will obtain repeat chest x-ray to evaluate for worsening of pneumonia. No hypoxia on arrival, however she was noted to be tachycardic,110's, diffuse expiratory wheezing upon examination, increased work of breathing noted upon minimal movement on stretcher. Will obtain CBC to evaluate for leukocytosis/ anemia, blood cultures and lactic acid, CMP to evaluate for abnormal electrolytes /abnormal renal function/ abnormal hepatic function, BNP, EKG and troponin to evaluate for ischemia/ACS, and Urinalysis. Patient to receive ceftriaxone IV, and azithromycin IV given known pneumonia in presence of tachycardia and worsening shortness of breath, will receive DuoNeb updraft and Solu-Medrol. <Viktoria Guerra CNP - Last Filed: 07/25/22 17:49> Reevaluation(s) Reevaluation #1: EKG reveals sinus tachycardia with PACs, a concerning finding of T-wave inversion in V2, V3, and V4 with ST depression in anterior/lateral leads which appears new when compared to prior EKG May 2022. Will obtain CT angio of the chest to exclude pulmonary embolism. Reviewed chest x-ray, right middle lobe infiltrate appears better when compared to prior, pending radiologist interpretation. <Viktoria Guerra CNP - Last Filed: 07/25/22 17:49> Time: 16:35 <Viktoria Guerra CNP - Last Filed: 07/25/22 17:49> Reevaluation #2: Hyponatremia with sodium 127, BUN 43 creatinine 1.91 GFR less than 30, SAGAR, unable to receive IV contrast, suspect secondary to dehydration patient to receive 500 mL IV fluid. Will obtain CT of the chest and abdomen without contrast, V/Q scan to evaluate for pulmonary embolism. Troponin is elevated at 17.7, will obtain delta troponin. <Viktoria Guerra CNP - Last Filed: 07/25/22 17:49> Time: 17:05 <Viktoria Guerra CNP - Last Filed: 07/25/22 17:49> Reevaluation #3: Patient signed out to Kirit Alarcon, pending CT of the chest, CT of the abdomen and V/Q scan, repeat BMP/ troponin. <Viktoria Guerra CNP - Last Filed: 07/25/22 17:49> Time: 17:42 <Viktoria Guerra CNP - Last Filed: 07/25/22 17:49> Additional Reevaluation(s): 2040: Patient still awaiting VQ scan read. Patient admitted to hospitalist team for SAGAR and SOB/weakness. <ALICIA Oconnell - Last Filed: 07/25/22 20:42> MDM - SOB/Dyspnea Medical Records Attestation: I reviewed the patient's medical records. <Viktoria Guerra CNP - Last Filed: 07/25/22 17:49> Lab Data Attestation: I reviewed the patient's lab results. <Viktoria Guerra CNP - Last Filed: 07/25/22 17:49> Result diagrams: : 07/25/22 16:20 07/25/22 20:04 <Viktoria Guerra CNP - Last Filed: 07/25/22 17:49> Labs: Lab Results 10/07/25/22 07/25/22 Range/Units 16:20 16:20 16:20 WBC 7.0 (4.8-10.8) X10*3/uL RBC 3.84 L D (4.20-5.50) X10*6/uL Hgb 10.4 L D (12.0-16.0) g/dl Hct 30.9 L D (37.0-47.0) % MCV 80.5 (80.0-98.0) fL MCH 27.1 (27.0-33.0) pg MCHC 33.7 (31.0-35.0) g/dl RDW 15.1 (11.0-16.0) % Plt Count 382 D (160-400) X10*3/uL MPV 8.2 L (9.4-12.3) fL Immature Gran % (Auto) 0.7 H (0.0-0.4) % Neut % (Auto) 91.4 H (45-73) % Lymph % (Auto) 5.9 L (20-40) % Wilson % (Auto) 2.0 (2-11) % Eos % (Auto) 0.0 (0-4) % Baso % (Auto) 0.0 (0-2) % Lymph # (Auto) 0.4 L (1.2-4.9) X10*3/uL Wilson # (Auto) 0.1 (0.1-1.2) X10*3/uL Eos # (Auto) 0.0 (0.0-0.4) X10*3/uL Baso # (Auto) 0.0 (0.0-0.2) X10*3/uL Abs Immat Gran (auto) 0.05 H (0.00-0.03) X10*3/uL Absolute Neuts (auto) 6.4 (2.0-8.3) x10*3/uL Absolute Nucleated RBC 0.000 (0.0-0.012) X10*3/uL Nucleated RBC % (auto) 0.0 (0.0-0.2) /100WBC Sodium 127 L (135-145) mmol/L Potassium 3.4 (3.3-5.1) mmol/L Chloride 88 L (96-108) mmol/L Carbon Dioxide 26 (22-29) mmol/L Anion Gap 16 (12-20) BUN 43 H D (9-16) mg/dL Creatinine 1.91 H (0.5-1.4) mg/dL Estim Creat Clear Calc 31.1 Estimated GFR 26 Random Glucose 194 H (60-115) mg/dL Lactic Acid (0.5-2.0) mmol/L Calcium 9.5 D (8.4-10.2) mg/dL Magnesium 2.1 (1.6-2.6) mg/dL Total Bilirubin 0.4 (0.0-1.0) mg/dL AST 17 (5-31) U/L ALT 7 (0-31) U/L Alkaline Phosphatase 94 D (39-117) U/L Troponin I High Sens 17.7 H D (<3.5-17.0) ng/L B-Natriuretic Peptide (<100) pg/mL Total Protein 7.3 D (6.5-8.0) g/dL Albumin 4.1 D (3.5-5.0) g/dL Lipase 25 (8-78) U/L COVID-19 (ZAKIA) (Negative) COVID-19 Clin Com 07/25/22 07/25/22 07/25/22 Range/Units 16:20 16:20 16:20 WBC (4.8-10.8) X10*3/uL RBC (4.20-5.50) X10*6/uL Hgb (12.0-16.0) g/dl Hct (37.0-47.0) % MCV (80.0-98.0) fL MCH (27.0-33.0) pg MCHC (31.0-35.0) g/dl RDW (11.0-16.0) % Plt Count (160-400) X10*3/uL MPV (9.4-12.3) fL Immature Gran % (Auto) (0.0-0.4) % Neut % (Auto) (45-73) % Lymph % (Auto) (20-40) % Wilson % (Auto) (2-11) % Eos % (Auto) (0-4) % Baso % (Auto) (0-2) % Lymph # (Auto) (1.2-4.9) X10*3/uL Wilson # (Auto) (0.1-1.2) X10*3/uL Eos # (Auto) (0.0-0.4) X10*3/uL Baso # (Auto) (0.0-0.2) X10*3/uL Abs Immat Gran (auto) (0.00-0.03) X10*3/uL Absolute Neuts (auto) (2.0-8.3) x10*3/uL Absolute Nucleated RBC (0.0-0.012) X10*3/uL Nucleated RBC % (auto) (0.0-0.2) /100WBC Sodium (135-145) mmol/L Potassium (3.3-5.1) mmol/L Chloride (96-108) mmol/L Carbon Dioxide (22-29) mmol/L Anion Gap (12-20) BUN (9-16) mg/dL Creatinine (0.5-1.4) mg/dL Estim Creat Clear Calc Estimated GFR Random Glucose (60-115) mg/dL Lactic Acid 1.8 (0.5-2.0) mmol/L Calcium (8.4-10.2) mg/dL Magnesium (1.6-2.6) mg/dL Total Bilirubin (0.0-1.0) mg/dL AST (5-31) U/L ALT (0-31) U/L Alkaline Phosphatase (39-117) U/L Troponin I High Sens (<3.5-17.0) ng/L B-Natriuretic Peptide 63 (<100) pg/mL Total Protein (6.5-8.0) g/dL Albumin (3.5-5.0) g/dL Lipase (8-78) U/L COVID-19 (ZAKIA) Negative (Negative) COVID-19 Clin Com See Note 07/25/22 07/25/22 Range/Units 20:04 20:04 WBC (4.8-10.8) X10*3/uL RBC (4.20-5.50) X10*6/uL Hgb (12.0-16.0) g/dl Hct (37.0-47.0) % MCV (80.0-98.0) fL MCH (27.0-33.0) pg MCHC (31.0-35.0) g/dl RDW (11.0-16.0) % Plt Count (160-400) X10*3/uL MPV (9.4-12.3) fL Immature Gran % (Auto) (0.0-0.4) % Neut % (Auto) (45-73) % Lymph % (Auto) (20-40) % Wilson % (Auto) (2-11) % Eos % (Auto) (0-4) % Baso % (Auto) (0-2) % Lymph # (Auto) (1.2-4.9) X10*3/uL Wilson # (Auto) (0.1-1.2) X10*3/uL Eos # (Auto) (0.0-0.4) X10*3/uL Baso # (Auto) (0.0-0.2) X10*3/uL Abs Immat Gran (auto) (0.00-0.03) X10*3/uL Absolute Neuts (auto) (2.0-8.3) x10*3/uL Absolute Nucleated RBC (0.0-0.012) X10*3/uL Nucleated RBC % (auto) (0.0-0.2) /100WBC Sodium 132 L (135-145) mmol/L Potassium 3.4 (3.3-5.1) mmol/L Chloride 93 L (96-108) mmol/L Carbon Dioxide 26 (22-29) mmol/L Anion Gap 16 (12-20) BUN 42 H (9-16) mg/dL Creatinine 1.83 H (0.5-1.4) mg/dL Estim Creat Clear Calc 32.5 Estimated GFR 27 Random Glucose 201 H (60-115) mg/dL Lactic Acid (0.5-2.0) mmol/L Calcium 9.0 (8.4-10.2) mg/dL Magnesium (1.6-2.6) mg/dL Total Bilirubin (0.0-1.0) mg/dL AST (5-31) U/L ALT (0-31) U/L Alkaline Phosphatase (39-117) U/L Troponin I High Sens 12.1 (<3.5-17.0) ng/L B-Natriuretic Peptide (<100) pg/mL Total Protein (6.5-8.0) g/dL Albumin (3.5-5.0) g/dL Lipase (8-78) U/L COVID-19 (ZAKIA) (Negative) COVID-19 Clin Com <Viktoria Guerra, PROCEDURES NURSE - Last Filed: 07/25/22 17:49> Lab Results 07/25/22 07/25/22 07/25/22 Range/Units 16:20 16:20 16:20 WBC 7.0 (4.8-10.8) X10*3/uL RBC 3.84 L D (4.20-5.50) X10*6/uL Hgb 10.4 L D (12.0-16.0) g/dl Hct 30.9 L D (37.0-47.0) % MCV 80.5 (80.0-98.0) fL MCH 27.1 (27.0-33.0) pg MCHC 33.7 (31.0-35.0) g/dl RDW 15.1 (11.0-16.0) % Plt Count 382 D (160-400) X10*3/uL MPV 8.2 L (9.4-12.3) fL Immature Gran % (Auto) 0.7 H (0.0-0.4) % Neut % (Auto) 91.4 H (45-73) % Lymph % (Auto) 5.9 L (20-40) % Wilson % (Auto) 2.0 (2-11) % Eos % (Auto) 0.0 (0-4) % Baso % (Auto) 0.0 (0-2) % Lymph # (Auto) 0.4 L (1.2-4.9) X10*3/uL Wilson # (Auto) 0.1 (0.1-1.2) X10*3/uL Eos # (Auto) 0.0 (0.0-0.4) X10*3/uL Baso # (Auto) 0.0 (0.0-0.2) X10*3/uL Abs Immat Gran (auto) 0.05 H (0.00-0.03) X10*3/uL Absolute Neuts (auto) 6.4 (2.0-8.3) x10*3/uL Absolute Nucleated RBC 0.000 (0.0-0.012) X10*3/uL Nucleated RBC % (auto) 0.0 (0.0-0.2) /100WBC Sodium 127 L (135-145) mmol/L Potassium 3.4 (3.3-5.1) mmol/L Chloride 88 L (96-108) mmol/L Carbon Dioxide 26 (22-29) mmol/L Anion Gap 16 (12-20) BUN 43 H D (9-16) mg/dL Creatinine 1.91 H (0.5-1.4) mg/dL Estim Creat Clear Calc 31.1 Estimated GFR 26 Random Glucose 194 H (60-115) mg/dL Lactic Acid (0.5-2.0) mmol/L Calcium 9.5 D (8.4-10.2) mg/dL Magnesium 2.1 (1.6-2.6) mg/dL Total Bilirubin 0.4 (0.0-1.0) mg/dL AST 17 (5-31) U/L ALT 7 (0-31) U/L Alkaline Phosphatase 94 D (39-117) U/L Troponin I High Sens 17.7 H D (<3.5-17.0) ng/L B-Natriuretic Peptide (<100) pg/mL Total Protein 7.3 D (6.5-8.0) g/dL Albumin 4.1 D (3.5-5.0) g/dL Lipase 25 (8-78) U/L COVID-19 (ZAKIA) (Negative) COVID-19 Clin Com 07/25/22 07/25/22 07/25/22 Range/Units 16:20 16:20 16:20 WBC (4.8-10.8) X10*3/uL RBC (4.20-5.50) X10*6/uL Hgb (12.0-16.0) g/dl Hct (37.0-47.0) % MCV (80.0-98.0) fL MCH (27.0-33.0) pg MCHC (31.0-35.0) g/dl RDW (11.0-16.0) % Plt Count (160-400) X10*3/uL MPV (9.4-12.3) fL Immature Gran % (Auto) (0.0-0.4) % Neut % (Auto) (45-73) % Lymph % (Auto) (20-40) % Wilson % (Auto) (2-11) % Eos % (Auto) (0-4) % Baso % (Auto) (0-2) % Lymph # (Auto) (1.2-4.9) X10*3/uL Wilson # (Auto) (0.1-1.2) X10*3/uL Eos # (Auto) (0.0-0.4) X10*3/uL Baso # (Auto) (0.0-0.2) X10*3/uL Abs Immat Gran (auto) (0.00-0.03) X10*3/uL Absolute Neuts (auto) (2.0-8.3) x10*3/uL Absolute Nucleated RBC (0.0-0.012) X10*3/uL Nucleated RBC % (auto) (0.0-0.2) /100WBC Sodium (135-145) mmol/L Potassium (3.3-5.1) mmol/L Chloride (96-108) mmol/L Carbon Dioxide (22-29) mmol/L Anion Gap (12-20) BUN (9-16) mg/dL Creatinine (0.5-1.4) mg/dL Estim Creat Clear Calc Estimated GFR Random Glucose (60-115) mg/dL Lactic Acid 1.8 (0.5-2.0) mmol/L Calcium (8.4-10.2) mg/dL Magnesium (1.6-2.6) mg/dL Total Bilirubin (0.0-1.0) mg/dL AST (5-31) U/L ALT (0-31) U/L Alkaline Phosphatase (39-117) U/L Troponin I High Sens (<3.5-17.0) ng/L B-Natriuretic Peptide 63 (<100) pg/mL Total Protein (6.5-8.0) g/dL Albumin (3.5-5.0) g/dL Lipase (8-78) U/L COVID-19 (ZAKIA) Negative (Negative) COVID-19 Clin Com See Note 07/25/22 07/25/22 Range/Units 20:04 20:04 WBC (4.8-10.8) X10*3/uL RBC (4.20-5.50) X10*6/uL Hgb (12.0-16.0) g/dl Hct (37.0-47.0) % MCV (80.0-98.0) fL MCH (27.0-33.0) pg MCHC (31.0-35.0) g/dl RDW (11.0-16.0) % Plt Count (160-400) X10*3/uL MPV (9.4-12.3) fL Immature Gran % (Auto) (0.0-0.4) % Neut % (Auto) (45-73) % Lymph % (Auto) (20-40) % Wilson % (Auto) (2-11) % Eos % (Auto) (0-4) % Baso % (Auto) (0-2) % Lymph # (Auto) (1.2-4.9) X10*3/uL Wilson # (Auto) (0.1-1.2) X10*3/uL Eos # (Auto) (0.0-0.4) X10*3/uL Baso # (Auto) (0.0-0.2) X10*3/uL Abs Immat Gran (auto) (0.00-0.03) X10*3/uL Absolute Neuts (auto) (2.0-8.3) x10*3/uL Absolute Nucleated RBC (0.0-0.012) X10*3/uL Nucleated RBC % (auto) (0.0-0.2) /100WBC Sodium 132 L (135-145) mmol/L Potassium 3.4 (3.3-5.1) mmol/L Chloride 93 L (96-108) mmol/L Carbon Dioxide 26 (22-29) mmol/L Anion Gap 16 (12-20) BUN 42 H (9-16) mg/dL Creatinine 1.83 H (0.5-1.4) mg/dL Estim Creat Clear Calc 32.5 Estimated GFR 27 Random Glucose 201 H (60-115) mg/dL Lactic Acid (0.5-2.0) mmol/L Calcium 9.0 (8.4-10.2) mg/dL Magnesium (1.6-2.6) mg/dL Total Bilirubin (0.0-1.0) mg/dL AST (5-31) U/L ALT (0-31) U/L Alkaline Phosphatase (39-117) U/L Troponin I High Sens 12.1 (<3.5-17.0) ng/L B-Natriuretic Peptide (<100) pg/mL Total Protein (6.5-8.0) g/dL Albumin (3.5-5.0) g/dL Lipase (8-78) U/L COVID-19 (ZAKIA) (Negative) COVID-19 Clin Com <ALICIA Oconnell - Last Filed: 07/25/22 20:42> Imaging Data Chest x-ray: Radiologist's impression: XR/XR chest 2V IMPRESSION: Unremarkable examination. <Viktoria Guerra CNP - Last Filed: 07/25/22 17:49> ECG Data Attestation: I personally reviewed and interpreted this ECG as follows: <Viktoria Guerra CNP - Last Filed: 07/25/22 17:49> ECG interpretation date: 07/25/22 <Viktoria Guerra CNP - Last Filed: 07/25/22 17:49> Prior ECG tracings: available for review <Viktoria Guerra CNP - Last Filed: 07/25/22 17:49> Interpretation: Rate: 117 Rhythm:? Sinus tachycardia with PACs Normal P waves.? Normal ANDRES.?? Normal QRS complex.?? ST T wave :? No ST elevation. T-wave inversion in V2 V3 V4, ST depression abnormality in?anterior/lateral leads qTC: 477 prior studies:? May 2022 The study has been interpreted contemporaneously by me. <Viktoria Guerra CNP - Last Filed: 07/25/22 17:49> Critical Care Time Critical Care Time Critical Care Time: Yes <Viktoria Guerra CNP - Last Filed: 07/25/22 17:49> Total Critical Care Time: 40 <Viktoria Guerra CNP - Last Filed: 07/25/22 17:49> Attestation: I personally attest to this critical care time spent taking care of the patient exclusive of all other billable procedures was approximately 40 minutes including initial evaluation of patient, ordering tests, x-ray interpretation, EKG interpretation, medical consultation, documentation, re-evaluation. <Viktoria Guerra CNP - Last Filed: 07/25/22 17:49> Discharge Plan Discharge Clinical Impression: SAGAR (acute kidney injury), Acute hyponatremia, Shortness of breath <Viktoria Guerra CNP - Last Filed: 07/25/22 17:49> Patient Disposition: Still a Patient <Viktoria Guerra CNP - Last Filed: 07/25/22 17:49> Prescriptions: No Action prednisone 20 mg tablet 40 mg PO DAILY Qty: 10 0RF doxycycline hyclate 100 mg tablet 100 mg PO BID Qty: 20 0RF albuterol sulfate 90 mcg/actuation HFA aerosol inhaler 2 puff inhalation QID PRN (Reason: shortness of breath or wheezing) Qty: 8.5 0RF prednisone 20 mg tablet 40 mg PO DAILY Qty: 8 0RF azithromycin 250 mg tablet 250 mg PO DAILY 4 Days Qty: 4 0RF Rx Instructions: start on day 2 of therapy quetiapine 50 mg Tablet 50 mg PO TID 30 Days Qty: 90 0RF trazodone 50 mg Tablet 50 mg PO BEDTIME PRN (Reason: Insomnia) 30 Days Qty: 30 0RF prednisone 20 mg Tablet 40 mg PO DAILY 30 Days Qty: 60 0RF multivitamin [Daily-Cony] Tablet 1 tab PO DAILY 30 Days Qty: 30 0RF sennosides [senna] 8.6 mg tablet 1 tab PO BID PRN (Reason: constipation) 30 Days Qty: 60 0RF ipratropium-albuterol 0.5 mg-3 mg(2.5 mg base)/3 mL solution for nebulization 1 amp inhalation Q4H PRN (Reason: Wheezing) 30 Days Qty: 30 0RF thiamine HCl (vitamin B1) 100 mg tablet 1 tab PO QAM 30 Days Qty: 30 0RF omeprazole 40 mg capsule,delayed release(DR/EC) 1 cap PO QAM 30 Days Qty: 30 0RF aspirin 81 mg tablet,delayed release (DR/EC) 1 tab PO QPM 30 Days Qty: 30 0RF acetaminophen 650 mg tablet extended release 1 tab PO BID PRN (Reason: pain) 30 Days Qty: 60 0RF baclofen 20 mg Tablet 20 mg PO DAILY PRN (Reason: Back Pain) 30 Days Qty: 30 0RF folic acid 1 mg tablet 1 mg PO QAM 30 Days Qty: 30 0RF montelukast 10 mg tablet 1 tab PO QPM 30 Days Qty: 30 0RF fluticasone propionate [Flovent HFA] 220 mcg/actuation HFA aerosol inhaler 1 puff PO BID Qty: 12 0RF pravastatin 20 mg tablet 1 tab PO QPM 30 Days Qty: 30 0RF furosemide 20 mg tablet 0.5 tab PO DAILY 30 Days Qty: 15 0RF metoprolol succinate 25 mg tablet extended release 24 hr 1 tab PO QAM 30 Days Qty: 30 0RF albuterol sulfate 90 mcg/actuation HFA aerosol inhaler 1 puff PO QID PRN (Reason: wheezing) 30 Days Qty: 1 0RF ondansetron 4 mg Tablet,Disintegrating 4 mg PO Q12H PRN (Reason: Nausea) 30 Days Qty: 30 0RF <Viktoria Guerra CNP - Last Filed: 07/25/22 17:49>
--- NOTE | 2022-07-25 15:03 | PC.NURSE ---
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 rosalva . heart rate regular at 104 beats per minute . wheezes noted in upper lobes . skin dry warm and dusky . patient has rebound tenderness noted in lower abdomen . positive bowel sounds noted throughout . patient says she is having spasming pain throughout her whole body and rocking back and fourth in the stretcher . IV placed in left AC . patient to CT and Xray for imaging . patient aware of plan of care .
[2022-07-25] MEDS: clonazePAM 1 MG TABLET PO (15:18)
[2022-07-25] MEDS: methylPREDNISolone Sod Succ 125 MG/2 ML VIAL IVPUSH (15:18)
[2022-07-25] MEDS: ondansetron HCL 4 MG/2 ML VIAL IVPUSH (15:18)
[2022-07-25] MEDS: Albuterol Sulfate 5 MG, Albuterol Sulfate (0.083%) 2.5 MG 7.5 MG INHALE (15:45)
[2022-07-25] MEDS: Albuterol/Iprat 2.5/0.5MG 3 ML AMPUL.NEB INHALE (15:45)
[2022-07-25 15:46] VITALS: PULSE 107; RESP 23; O2SAT 97
[2022-07-25 16:30] LABS: MANUAL DIFF FLAG NO
[2022-07-25 16:31] LABS: Hematocrit 30.9 % (37.0-47.0); Hemoglobin 10.4 g/dl (12.0-16.0); Imm Gran Abs Auto 0.05 X10*3/uL (0.00-0.03); Imm Gran Pct Auto 0.7 % (0.0-0.4); Lymphocytes Absolute Auto 0.4 X10*3/uL (1.2-4.9); Lymphocytes Percent Auto 5.9 % (20-40); Mean Corpuscular HGB Conc 33.7 g/dl (31.0-35.0); Mean Corpuscular Hemoglobin 27.1 pg (27.0-33.0); Mean Corpuscular Volume 80.5 fL (80.0-98.0); Mean Platelet Volume 8.2 fL (9.4-12.3); Monocytes Absolute Auto 0.1 X10*3/uL (0.1-1.2); Neutrophils Absolute Auto 6.4 x10*3/uL (2.0-8.3); Neutrophils Percent Auto 91.4 % (45-73); Platelet Count 382 X10*3/uL (160-400); Red Blood Count 3.84 X10*6/uL (4.20-5.50); Red Cell Distribution Width 15.1 % (11.0-16.0); SCAN SMEAR FLAG 1
[2022-07-25 16:40] LABS: Lactic Acid 1.8 mmol/L (0.5-2.0)
[2022-07-25 16:44] LABS: COVID-19 Test Negative (Negative)
[2022-07-25 16:46] LABS: Alanine Aminotransferase 7 U/L (0-31); Albumin Level 4.1 g/dL (3.5-5.0); Alkaline Phosphatase 94 U/L (39-117); Anion Gap 16 (12-20); Aspartate Amino Transferase 17 U/L (5-31); Bilirubin Total 0.4 mg/dL (0.0-1.0); Blood Urea Nitrogen 43 mg/dL (9-16); Calcium 9.5 mg/dL (8.4-10.2); Carbon Dioxide 26 mmol/L (22-29); Chloride 88 mmol/L (96-108); Creatinine Clr Calc Pharmacy 31.1; Estimated Glomerular Filt Rate 26; Glucose Random 194 mg/dL (60-115); Lipase 25 U/L (8-78); Magnesium 2.1 mg/dL (1.6-2.6); Potassium 3.4 mmol/L (3.3-5.1); Sodium 127 mmol/L (135-145); Total Protein 7.3 g/dL (6.5-8.0)
[2022-07-25 16:51] LABS: B Type Natriuretic Peptide 63 pg/mL (<100); Troponin-I High Sensitivity 17.7 ng/L (<3.5-17.0)
[2022-07-25] MEDS: cefTRIAXone sodium 1 GM in 0.9 % Sodium Chloride 50 ML IV (17:01)
[2022-07-25 18:00] VITALS: RESP 18
[2022-07-25] MEDS: Azithromycin 500 MG in 0.9 % Sodium Chloride 250 ML 125 MG IV (18:25)
[2022-07-25] MEDS: 0.9 % Sodium Chloride 1,000 ML 999 ML IV (19:29)
[2022-07-25 20:00] VITALS: PULSE 103; RESP 16; O2SAT 100
[2022-07-25 20:27] LABS: Anion Gap 16 (12-20); Blood Urea Nitrogen 42 mg/dL (9-16); Carbon Dioxide 26 mmol/L (22-29); Chloride 93 mmol/L (96-108); Creatinine Clr Calc Pharmacy 32.5; Estimated Glomerular Filt Rate 27; Glucose Random 201 mg/dL (60-115); Potassium 3.4 mmol/L (3.3-5.1); Sodium 132 mmol/L (135-145)
[2022-07-25 20:33] LABS: Troponin-I High Sensitivity 12.1 ng/L (<3.5-17.0)
[2022-07-25 21:32] VITALS: BP 123/68; PULSE 99; RESP 16; TEMP 37.2; O2SAT 96
--- NOTE | 2022-07-25 21:48 | P.HPHOSP_ITS ---
History of Present Illness Date of Service: 07/25/22 Chief Complaint: Black stools This is a 67-year-old female with pertinent history of bipolar disorder, alcohol use disorder, essential hypertension, chronic back pain, [id number] diabetes mellitus who presents to the emergency department for evaluation of generalized weakness. Patient was seen in the ER 2 days ago when her symptoms were thought to be related to community-acquired pneumonia and she was discharged on p.o. antibiotics. As per the family from chart review, patient has had increasing weakness and family reports difficulty taking care of her. At the time of my evaluation, she denies any dyspnea. Does complain of black stools, painless that started 2 days ago. Patient denies gisell red blood or blood clots in stool. Denies hematemesis. Does not know if she has had similar episodes in the past. She denies fever, chills, chest discomfort, dyspnea, palpitations, abdominal pain which changes in urinary or bowel habits. On f urther questioning, she complains of generalized pain all over specially bilateral leg/calf pain. No cough. In the emergency department, patient was found to have acute kidney injury. Review of Systems Constitutional: Constitutional: Reports body ache(s), Reports fatigue and Reports weakness Cardiovascular: Cardiovascular: Reports no additional cardiovascular complaints Respiratory: Respiratory: Reports no additional respiratory complaints Gastrointestinal: Gastrointestinal: Reports melena Genitourinary: Genitourinary: Reports no additional female genitourinary complaints Neurologic: Reports weakness Endocrine: Endocrine: Reports fatigue [facility] Medical History (Updated 07/25/22 @ 21:55 by Lb Najera MD) Acute hyponatremia Alcohol use disorder Bipolar 1 disorder Bipolar I disorder Cannabis use disorder, moderate, dependence Chronic hyponatremia Congestive heart failure COPD (chronic obstructive pulmonary disease) Coronary artery disease Dementia Diabetes Hypertension Korsakoff disease Osteoarthritis Schizophrenia Sleep apnea Surgical History Hx of appendectomy Social History Household Members: Spouse Housing: Apartment Do you presently have visiting nurse or other home services: Yes Unable to assess alcohol history related to: Unknown Alcohol intake: former Patient Tobacco Use Status: Former Tobacco user Tobacco use type: Cigarette Cigarettes Per Day: 6 Years Smoked: 53 e-Cigarette/Vaping Use: Never Used Second Hand Smoke Exposure: Yes Substance Use Type: Marijuana Advance Directives: Yes Advance Directives on File: Yes Advance Directives Date on File: 10/10/20 service: No Current occupational status: unemployed, disabled and other Sexual orientation: Straight/Heterosexual Meds Allergies Allergy/AdvReac Type Severity Reaction Status Date / Time advair Allergy Unknown Unknown Uncoded 03/29/22 01:21 From PAXIL AdvReac Intermediate NAUSEA & Uncoded 03/29/22 01:21 VOMITING Active Medications: Current Medications Acetaminophen (Acetaminophen 325 Mg Tablet) 650 mg PO Q6H PRN PRN Reason: Pain, Mild (Pain Scale 1-3) Albuterol/Ipratropium (Albuterol/Iprat 2.5/0.5mg 3 Ml Ampul.Neb) 3 ml INHALE RQ6H PRN PRN Reason: wheezing Dextrose (Dextrose 50 % 25 Gm/50 Ml Syringe) 25 gm IVPUSH Q15M PRN; Protocol PRN Reason: per Hypoglycemia Standing Ord. Glucose (Glucose Gel 15 Gm Gel..Gram.) 15 gm PO Q15M PRN; Protocol PRN Reason: per Hypoglycemia Standing Ord. Insulin Human Lispro (Insulin Lispro 100 Unit/Ml 3 Ml Vial) 0 unit SUBCUT Q6H YUMIKO; Protocol Stop: 07/26/22 21:45 Melatonin (Melatonin 3 Mg Tablet) 6 mg PO BEDTIME PRN PRN Reason: Insomnia Ondansetron HCl (Ondansetron Hcl 4 Mg/2 Ml Vial) 4 mg IVPUSH Q8H PRN PRN Reason: Nausea and Vomiting Pantoprazole Sodium (Pantoprazole Sodium 40 Mg/10 Ml Vial) 40 mg IVPUSH BID YUMIKO Sodium Chloride (0.9 % Sodium Chloride Flush 3 Ml Syringe) 3 ml IVFLUSH QSHIFT [facility] Home Medications Medication Instructions Recorded Confirmed Last Taken Type albuterol sulfate 90 mcg/actuation 2 puff inhalation Q4H PRN 07/25/22 Unknown History aerosol inhaler shortness of breath or wheezing Physical Exam Vital Signs and Narrative: Vital Signs: Last Vital Signs Temp 98.9 F 07/25/22 21:32 Pulse 99 07/25/22 21:32 Resp 16 07/25/22 21:32 BP 123/68 07/25/22 21:32 Pulse Ox 96 07/25/22 21:32 O2 Del Method 07/25/22 21:32 BMI result Body Mass Index 36.0 Elderly female lying in bed in no distress Neck supple, no JVD Tachycardic with regular rhythm, S1-S2 heard Regular breath sounds bilaterally, no wheezing or crackles appreciated Abdomen soft nontender, no guarding, no rigidity Patient is awake, alert and oriented to self, place, time and person ; no focal motor deficit Psych: Normal mood Bilateral leg swelling with diffuse tenderness Results Labs CBC and Chem 7: 07/25/22 16:20 07/25/22 20:04 Labs: Laboratory Results - last 24 hr 07/25/22 07/25/22 07/25/22 16:20 16:20 16:20 MCV 80.5 MCH 27.1 MCHC 33.7 RDW 15.1 Plt Count 382 D MPV 8.2 L Immature Gran % (Auto) 0.7 H Neut % (Auto) 91.4 H Lymph % (Auto) 5.9 L [place] % (Auto) 2.0 Eos % (Auto) 0.0 Baso % (Auto) 0.0 Lymph # (Auto) 0.4 L [place] # (Auto) 0.1 Eos # (Auto) 0.0 Baso # (Auto) 0.0 Abs Immat Gran (auto) 0.05 H Absolute Neuts (auto) 6.4 Absolute Nucleated RBC 0.000 Nucleated RBC % (auto) 0.0 Anion Gap 16 Estim Creat Clear Calc 31.1 Estimated GFR 26 Random Glucose 194 H Lactic Acid Calcium 9.5 D Magnesium 2.1 Total Bilirubin 0.4 AST 17 ALT 7 Alkaline Phosphatase 94 D Troponin I High Sens 17.7 H D B-Natriuretic Peptide Total Protein 7.3 D Albumin 4.1 D Lipase 25 COVID-19 ([facility]AKIA) COVID-19 Clin Com 07/25/22 07/25/22 07/25/22 16:20 16:20 16:20 MCV MCH MCHC RDW Plt Count MPV Immature Gran % (Auto) Neut % (Auto) Lymph % (Auto) [place] % (Auto) Eos % (Auto) Baso % (Auto) Lymph # (Auto) [place] # (Auto) Eos # (Auto) Baso # (Auto) Abs Immat Gran (auto) Absolute Neuts (auto) Absolute Nucleated RBC Nucleated RBC % (auto) Anion Gap Estim Creat Clear Calc Estimated GFR Random Glucose Lactic Acid 1.8 Calcium Magnesium Total Bilirubin AST ALT Alkaline Phosphatase Troponin I High Sens B-Natriuretic Peptide 63 Total Protein Albumin Lipase COVID-19 ([facility]AKIA) Negative COVID-19 Clin Com See Note 07/25/22 07/25/22 20:04 20:04 MCV MCH MCHC RDW Plt Count MPV Immature Gran % (Auto) Neut % (Auto) Lymph % (Auto) [place] % (Auto) Eos % (Auto) Baso % (Auto) Lymph # (Auto) [place] # (Auto) Eos # (Auto) Baso # (Auto) Abs Immat Gran (auto) Absolute Neuts (auto) Absolute Nucleated RBC Nucleated RBC % (auto) Anion Gap 16 Estim Creat Clear Calc 32.5 Estimated GFR 27 Random Glucose 201 H Lactic Acid Calcium 9.0 Magnesium Total Bilirubin AST ALT Alkaline Phosphatase Troponin I High Sens 12.1 B-Natriuretic Peptide Total Protein Albumin Lipase COVID-19 (ZAKIA) COVID-19 Clin Com Imaging Radiologist's Impressions: Impressions Chest X-Ray 07/25/22 15:05 IMPRESSION: Unremarkable examination. Abdomen/Pelvis CT 07/25/22 18:29 IMPRESSION: * Respiratory motion limits evaluation of the pulmonary parenchyma. Possible 3 mm solid left lower lobe pulmonary nodule, although respiratory motion makes it difficult to confirm. Assuming patient has no history of malignancy, recommend follow-up per Fleischner Society recommendations. According to the UPDATED 2017 Fleischner Society recommendations, the advised followup imaging for solid nodules < 6 mm is: LOW RISK PATIENT: No routine follow up. HIGH RISK PATIENT: Optional CT at 12 months. * No acute findings to explain symptoms of abdominal pain. * Additional incidental or chronic findings are as above detailed. Chest CT 07/25/22 18:29 IMPRESSION: * Respiratory motion limits evaluation of the pulmonary parenchyma. Possible 3 mm solid left lower lobe pulmonary nodule, although respiratory motion makes it difficult to confirm. Assuming patient has no history of malignancy, recommend follow-up per Fleischner Society recommendations. According to the UPDATED 2017 Fleischner Society recommendations, the advised followup imaging for solid nodules < 6 mm is: LOW RISK PATIENT: No routine follow up. HIGH RISK PATIENT: Optional CT at 12 months. * No acute findings to explain symptoms of abdominal pain. * Additional incidental or chronic findings are as above detailed. Pulmonary Perfusion Imaging 07/25/22 19:30 IMPRESSION: Normal perfusion lung scan. No evidence of pulmonary embolism. Assessment and Plan (1) Black stool: Status: Acute (2) SAGAR (acute kidney injury): Status: Acute (3) Bipolar 1 disorder: Status: Acute (4) Hypertension: Status: Acute (5) COPD (chronic obstructive pulmonary disease): Status: Acute (6) Diabetes: Status: Acute Plan This is a 67-year-old female with pertinent history of bipolar disorder, alcohol use disorder, essential hypertension, chronic back pain, apn-hcnoypa-cwgyocvma diabetes mellitus who presents to the emergency department for evaluation of generalized weakness. #. Black tarry stools, likely melena -concerning for upper GI bleed. Not on iron supplementation. Initiating IV Protonix 40 mg b.i.d. and will resuscitate with IV crystalloids. Consulted GI in a.m. #. Acute kidney injury, prerenal -in the setting of above. Monitor creatinine and urine output with fluid resuscitation #. Generalized weakness -due to above. Will consult Physical therapy to evaluate and treat for safe dis position #. Chronic anemia -possible hemoconcentration. Will monitor. Currently above transfusion threshold #. Lower extremity swelling with pain -obtain bilateral venous duplex ultrasound to rule out DVT. No concern for CHF decompensation at the time of admission. #. Iyz-jusqxsy-ppwwltlqf diabetes mellitus with hyperglycemia -previously on metformin. Initiating Accu-Cheks with sliding scale insulin every 6 hours #. Essential hypertension -hold home p.o. medications #. COPD -no exacerbation on admission. DuoNebs p.r.n. #. Bipolar disorder -continue home mood stabilizers DVT prophylaxis: None. Hold anticoagulation until GI evaluation Full code Diet: NPO Quality Stroke Does the patient have a stroke diagnosis?: No VTE Prior VTE?: No VTE Risk Level:: Medical - moderate - high VTE Device Contraindication: Treatment Not Indicated VTE Drug Contraindication: Treatment Not Indicated
[2022-07-25 23:40] LABS: Glucose, Whole Blood 193 mg/dL (60-115)
[2022-07-25] MEDS: 0.9 % Sodium Chloride 1,000 ML 100 ML IVCONT (23:58)
[2022-07-25] MEDS: QUEtiapine Fumarate 50 MG TABLET PO (23:58)
[2022-07-25] MEDS: Pantoprazole Sodium 40 MG/10 ML VIAL IVPUSH (23:58)
[2022-07-26] VITALS (9 sets, daily range): BP systolic 117–156; BP diastolic 54–80; PULSE 83–107; RESP 14–20; TEMP 36.2–36.8; O2SAT 95–100
[2022-07-26] MEDS: Pantoprazole Sodium 40 MG/10 ML VIAL IVPUSH ×2 (05:12→18:05)
[2022-07-26 06:06] LABS: MANUAL DIFF FLAG NO
[2022-07-26 06:08] LABS: Hematocrit 29.7 % (37.0-47.0); Imm Gran Abs Auto 0.02 X10*3/uL (0.00-0.03); Imm Gran Pct Auto 0.6 % (0.0-0.4); Lymphocytes Absolute Auto 0.4 X10*3/uL (1.2-4.9); Lymphocytes Percent Auto 11.9 % (20-40); Mean Corpuscular HGB Conc 33.7 g/dl (31.0-35.0); Mean Corpuscular Hemoglobin 27.4 pg (27.0-33.0); Mean Corpuscular Volume 81.4 fL (80.0-98.0); Mean Platelet Volume 8.5 fL (9.4-12.3); Monocytes Absolute Auto 0.2 X10*3/uL (0.1-1.2); Monocytes Percent Auto 4.1 % (2-11); Neutrophils Percent Auto 83.4 % (45-73); Platelet Count 323 X10*3/uL (160-400); Red Blood Count 3.65 X10*6/uL (4.20-5.50); Red Cell Distribution Width 14.9 % (11.0-16.0); White Blood Count 3.6 X10*3/uL (4.8-10.8)
[2022-07-26 06:23] LABS: Anion Gap 16 (12-20); Blood Urea Nitrogen 34 mg/dL (9-16); Calcium 9.2 mg/dL (8.4-10.2); Carbon Dioxide 24 mmol/L (22-29); Chloride 98 mmol/L (96-108); Creatinine Clr Calc Pharmacy 41.6; Estimated Glomerular Filt Rate 36; Glucose Random 143 mg/dL (60-115); Potassium 3.4 mmol/L (3.3-5.1); Sodium 135 mmol/L (135-145)
[2022-07-26 07:32] LABS: Estimated Average Glucose 114 mg/dL; Hemoglobin A1C 101.5857 umol/L; Hemoglobin A1c % 5.6 %
[2022-07-26 08:15] LABS: Glucose, Whole Blood 119 mg/dL (60-115)
[2022-07-26] MEDS: Albuterol/Iprat 2.5/0.5MG 3 ML AMPUL.NEB INHALE ×3 (09:31→23:24)
--- NOTE | 2022-07-26 09:39 | PHA.MEDREC ---
Pharmacy Consult ? Medication Reconciliation Pharmacy has completed the medication reconciliation. Tser[place] spoke with Ana Lilia from [facility]. Reported patient takes clonazepam 0.35 mg BID however per PDMP it has not been filled since 2020. Katherine Irby, PharmD
[2022-07-26] MEDS: QUEtiapine Fumarate 50 MG TABLET PO (09:56)
[2022-07-26] MEDS: 0.9 % Sodium Chloride 1,000 ML 100 ML IVCONT (10:05)
--- NOTE | 2022-07-26 12:05 | P.PNIM_ITS ---
Subjective Subjective Date of Service: 07/26/22 Interval History: Awake alert denies abdominal pain, admitted to have 1 black stool yesterday otherwise had normal bowel movements denies nausea vomiting, denies fever chills no cough, no shortness of breath resting comfortably asking for food Review of Systems Review of Systems: Yes all other systems are reviewed and are negative Physical Exam Vital Signs: Vital Signs: Last Vital Signs Temp 98.2 F 07/26/22 09:49 Pulse 91 07/26/22 09:49 Resp 20 07/26/22 09:49 BP 145/73 H 07/26/22 09:49 Pulse Ox 100 07/26/22 09:49 O2 Del Method 07/26/22 09:49 BMI result Body Mass Index 36.0 Const: Other: General alert oriented x3,no acute distress.? Neck? supple no JVD. CVS? regular rate rhythm, Respiratory lungs clear to auscultation, no respiratory distress, no wheeze, no rhonchi. Gastrointestinal abdomen soft, nontender, bowel sounds audible, no guarding , no rigidity. Extremities no edema. Neuro nonfocal , speech clear. Skin no rash Psych appropriate affect Objective Data Active Medications Acetaminophen (Acetaminophen 325 Mg Tablet) 650 mg PO Q6H PRN PRN Reason: Pain, Mild (Pain Scale 1-3) Albuterol/Ipratropium (Albuterol/Iprat 2.5/0.5mg 3 Ml Ampul.Neb) 3 ml INHALE RQ6H PRN PRN Reason: wheezing Last Admin: 07/26/22 09:31 Dose: 3 ml Documented By: JHONNY Dextrose (Dextrose 50 % 25 Gm/50 Ml Syringe) 25 gm IVPUSH Q15M PRN; Protocol PRN Reason: per Hypoglycemia Standing Ord. Glucose (Glucose Gel 15 Gm Gel..Gram.) 15 gm PO Q15M PRN; Protocol PRN Reason: per Hypoglycemia Standing Ord. Sodium Chloride (Ns) 1,000 mls @ 100 mls/hr IVCONT .Q10H YUMIKO Last Admin: 07/26/22 10:05 Dose: 100 mls/hr Documented By: ARACELI Insulin Human Lispro (Insulin Lispro 100 Unit/Ml 3 Ml Vial) 0 unit SUBCUT Q6H YUMIKO; Protocol Stop: 07/26/22 21:45 Last Admin: 07/26/22 11:20 Dose: Not Given Documented By: ARACELI Non-Admin Reason: No Insulin Coverage Melatonin (Melatonin 3 Mg Tablet) 6 mg PO BEDTIME PRN PRN Reason: Insomnia Ondansetron HCl (Ondansetron Hcl 4 Mg/2 Ml Vial) 4 mg IVPUSH Q8H PRN PRN Reason: Nausea and Vomiting Pantoprazole Sodium (Pantoprazole Sodium 40 Mg/10 Ml Vial) 40 mg IVPUSH BID@0630,1630 [facility] Last Admin: 07/26/22 05:12 Dose: 40 mg Documented By: KAREN Pharmacy Consult (Consult Rx Perform Med Rec) 1 each MISCELLANE ONCE PRN PRN Reason: Consult order Quetiapine Fumarate (Quetiapine Fumarate 50 Mg Tablet) 50 mg PO TID [facility] Last Admin: 07/26/22 09:56 Dose: 50 mg Documented By: ARACELI Sodium Chloride (0.9 % Sodium Chloride Flush 3 Ml Syringe) 3 ml IVFLUSH QSHIFT [facility] Last Admin: 07/26/22 09:12 Dose: Not Given Documented By: ARACELI Non-Admin Reason: IV Running Trazodone HCl (Trazodone Hcl 50 Mg Tablet) 50 mg PO BEDTIME PRN PRN Reason: insomnia Labs CBC & Chem 7: 07/26/22 05:46 07/26/22 05:46 Labs: Laboratory Results - last 24 hr 07/25/22 07/25/22 07/25/22 16:20 16:20 16:20 MCV 80.5 MCH 27.1 MCHC 33.7 RDW 15.1 Plt Count 382 D MPV 8.2 L Immature Gran % (Auto) 0.7 H Neut % (Auto) 91.4 H Lymph % (Auto) 5.9 L [place] % (Auto) 2.0 Eos % (Auto) 0.0 Baso % (Auto) 0.0 Lymph # (Auto) 0.4 L [place] # (Auto) 0.1 Eos # (Auto) 0.0 Baso # (Auto) 0.0 Abs Immat Gran (auto) 0.05 H Absolute Neuts (auto) 6.4 Absolute Nucleated RBC 0.000 Nucleated RBC % (auto) 0.0 Anion Gap 16 Estim Creat Clear Calc 31.1 Estimated GFR 26 POC Glucose Random Glucose 194 H Estimat Average Glucose Hemoglobin A1c % Lactic Acid Calcium 9.5 D Magnesium 2.1 Total Bilirubin 0.4 AST 17 ALT 7 Alkaline Phosphatase 94 D Troponin I High Sens 17.7 H D B-Natriuretic Peptide Total Protein 7.3 D Albumin 4.1 D Lipase 25 COVID-19 (ZAKIA) COVID-19 [employer] 07/25/22 07/25/22 07/25/22 16:20 16:20 16:20 MCV MCH MCHC RDW Plt Count MPV Immature Gran % (Auto) Neut % (Auto) Lymph % (Auto) [place] % (Auto) Eos % (Auto) Baso % (Auto) Lymph # (Auto) [place] # (Auto) Eos # (Auto) Baso # (Auto) Abs Immat Gran (auto) Absolute Neuts (auto) Absolute Nucleated RBC Nucleated RBC % (auto) Anion Gap Estim Creat Clear Calc Estimated GFR POC Glucose Random Glucose Estimat Average Glucose Hemoglobin A1c % Lactic Acid 1.8 Calcium Magnesium Total Bilirubin AST ALT Alkaline Phosphatase Troponin I High Sens B-Natriuretic Peptide 63 Total Protein Albumin Lipase COVID-19 (ZAKIA) Negative COVID-[employer] See Note 07/25/22 07/25/22 07/25/22 16:20 20:04 20:04 MCV MCH MCHC RDW Plt Count MPV Immature Gran % (Auto) Neut % (Auto) Lymph % (Auto) [place] % (Auto) Eos % (Auto) Baso % (Auto) Lymph # (Auto) [place] # (Auto) Eos # (Auto) Baso # (Auto) Abs Immat Gran (auto) Absolute Neuts (auto) Absolute Nucleated RBC Nucleated RBC % (auto) Anion Gap 16 Estim Creat Clear Calc 32.5 Estimated GFR 27 POC Glucose Random Glucose 201 H Estimat Average Glucose 114 Hemoglobin A1c % 5.6 Lactic Acid Calcium 9.0 Magnesium Total Bilirubin AST ALT Alkaline Phosphatase Troponin I High Sens 12.1 B-Natriuretic Peptide Total Protein Albumin Lipase COVID-19 (ZAKIA) COVID-[employer] 07/25/22 07/26/22 07/26/22 23:36 05:46 05:46 MCV 81.4 MCH 27.4 MCHC 33.7 RDW 14.9 Plt Count 323 MPV 8.5 L Immature Gran % (Auto) 0.6 H Neut % (Auto) 83.4 H Lymph % (Auto) 11.9 L [place] % (Auto) 4.1 Eos % (Auto) 0.0 Baso % (Auto) 0.0 Lymph # (Auto) 0.4 L [place] # (Auto) 0.2 Eos # (Auto) 0.0 Baso # (Auto) 0.0 Abs Immat Gran (auto) 0.02 Absolute Neuts (auto) 3.0 Absolute Nucleated RBC 0.000 Nucleated RBC % (auto) 0.0 Anion Gap 16 Estim Creat Clear Calc 41.6 Estimated GFR 36 POC Glucose 193 H Random Glucose 143 H Estimat Average Glucose Hemoglobin A1c % Lactic Acid Calcium 9.2 Magnesium Total Bilirubin AST ALT Alkaline Phosphatase Troponin I High Sens B-Natriuretic Peptide Total Protein Albumin Lipase COVID-19 ([facility]AKIA) COVID-19 Clin Com 07/26/22 07:53 MCV MCH MCHC RDW Plt Count MPV Immature Gran % (Auto) Neut % (Auto) Lymph % (Auto) [place] % (Auto) Eos % (Auto) Baso % (Auto) Lymph # (Auto) [place] # (Auto) Eos # (Auto) Baso # (Auto) Abs Immat Gran (auto) Absolute Neuts (auto) Absolute Nucleated RBC Nucleated RBC % (auto) Anion Gap Estim Creat Clear Calc Estimated GFR POC Glucose 119 H Random Glucose Estimat Average Glucose Hemoglobin A1c % Lactic Acid Calcium Magnesium Total Bilirubin AST ALT Alkaline Phosphatase Troponin I High Sens B-Natriuretic Peptide Total Protein Albumin Lipase COVID-19 ([facility]AKIA) COVID-19 Clin Com Assessment and Plan (1) Diabetes: Status: Acute (2) Hypertension: Status: Acute (3) Black stool: Status: Acute (4) SAGAR (acute kidney injury): Status: Acute Plan 67-year-old female with pertinent history of bipolar disorder, alcohol use disorder, essential hypertension, chronic back pain, yva-mzkjkti-axmfmoijx diabetes mellitus who presents to the emergency department for evaluation of generalized weakness. #.? Black tarry stools, No recurrent episode patient feeling hungry, hematocrit stable History of alcohol use question gastritis Will resume diet, follow CBC and clinical course continue PPI seen by GI agree with above management #.? Acute kidney injury, prerenal - appears euvolemic hold Lasix ,Monitor creatinine and urine output with fluid resuscitation #.? Generalized weakness - complaining lower extremity arthritis, will use Tylenol for pain, Physical therapy to evaluate and treat for safe disposition, likely acute kidney injury and arthritis contributing to weakness On baclofen for back pain as needed Underwent extensive workup in the emergency room including CT chest, CT abdomen and pelvis, chest x-ray, perfusion study, all studies are unremarkable except for possible 3 mm solid left lower lobe pulmonary nodule for which a CT chest is recommended as outpatient in 12 months for high risk pt. otherwise no follow-up for low risk patient . No evidence of acute infection no antibiotic needed. #.? Chronic normocytic anemia hematocrit remains stable follow CBC #.? Lower extremity swelling with pain -no lower extremity edema noted, Doppler study negative for DVT patient appears euvolemic, recommend Tylenol for arthritis pain #.? Wam-svrgntb-hoflsbavw diabetes mellitus with hyperglycemia - blood sugars stable, previously on metformin.?cont. Accu-Cheks with sliding scale insulin #.? Essential hypertension -stable blood pressure resume metoprolol #.? COPD -no exacerbation on admission. Will continue home inhalers? #.? Bipolar disorder -continue Seroquel home dose no behavioral issues noted # history of chronic diastolic congestive heart failure no acute exacerbation hold diuretics due to sagar. # history of alcohol use unable to give history of lasts during continue thiamine and folic acid monitor closely with [facility] DVT prophylaxis:? None.? Hold anticoagulation until GI evaluation Full code Diet: NPO Quality Stroke Does the patient have a stroke diagnosis?: No VTE Prior VTE?: No VTE Risk Level:: Medical - moderate - high VTE Device Contraindication: Treatment Not Indicated VTE Drug Contraindication: Treatment Not Indicated
--- NOTE | 2022-07-26 12:08 | P.CNGI_ITS ---
History of Present Illness Data of Consult Service Date: 07/26/22 Requesting physician: Lb Najera Primary Care Provider: MD KERRI Dawson Reason for consult: Yaquelin This is a 67-year-old female with past medical history bipolar disorder, schizophrenia, COPD, CHF, diabetes, hypertension, who was recently seen in the emergency room for community acquired pneumonia, who was brought to the hospital for worsening weakness. History was obtained from the patient with the help of a senior sales operations manager. Her main complaint is weakness, and inability to walk without getting signif icantly short of breath. She denies any abdominal pain, nausea, vomiting or changes in bowel habits to include melena or hematochezia. She does endorse history of taking ibuprofen at least twice a day for many years. Patient also currently smokes. She is currently admitted to the hospital for generalized weakness and physical therapy evaluation. Labs are significant for hemoglobin of 10.0 this morning, which is in fact better from her previous baseline. Chem 7 with acute kidney injury on admission, creatinine not known to 1.4. Previous creatinine was 1.3 in May. Patient reports having a colonoscopy a year ago. I am unable to find these records in the system. Last colonoscopy in our system was in 2010 which was incomplete due to poor prep. Review of Systems Review of Systems: Yes all other systems are reviewed and are negative PMFSH Past Medical History Medical History Acute hyponatremia Alcohol use disorder Bipolar 1 disorder Bipolar I disorder Cannabis use disorder, moderate, dependence Chronic hyponatremia Congestive heart failure COPD (chronic obstructive pulmonary disease) Coronary artery disease Dementia Diabetes Hypertension Korsakoff disease Osteoarthritis Schizophrenia Sleep apnea Surgical History Surgical History Hx of appendectomy Social History Social History Household Members: Spouse Housing: Apartment Do you presently have visiting nurse or other home services: Yes Unable to assess alcohol history related to: Unknown Alcohol intake: former Patient Tobacco Use Status: Former Tobacco user Tobacco use type: Cigarette Cigarettes Per Day: 6 Years Smoked: 53 e-Cigarette/Vaping Use: Never Used Second Hand Smoke Exposure: Yes Substance Use Type: Marijuana Advance Directives: Yes Advance Directives on File: Yes Advance Directives Date on File: 10/10/20 service: No Current occupational status: unemployed, disabled and other Sexual orientation: Straight/Heterosexual Meds Allergies Allergy/AdvReac Type Severity Reaction Status Date / Time advair Allergy Unknown Unknown Uncoded 03/29/22 01:21 From PAXIL AdvReac Intermediate NAUSEA & Uncoded 03/29/22 01:21 VOMITING Active Medications: Current Medications Acetaminophen (Acetaminophen 325 Mg Tablet) 650 mg PO Q6H PRN PRN Reason: Pain, Mild (Pain Scale 1-3) Albuterol Sulfate (Albuterol Sulfate (0.083%) 2.5 Mg/3 Ml Vial.Neb) mg INHALE Q4H PRN PRN Reason: wheezing Albuterol Sulfate (Albuterol Sulfate 90 Mcg 8 Gm Inhaler) 2 puff INHALE Q4H PRN PRN Reason: shortness of breath or wheezing Albuterol/Ipratropium (Albuterol/Iprat 2.5/0.5mg 3 Ml Ampul.Neb) 3 ml INHALE RQ6H PRN PRN Reason: wheezing Last Admin: 07/26/22 09:31 Dose: 3 ml Baclofen (Baclofen 20 Mg Tablet) 20 mg PO DAILY PRN PRN Reason: Back Pain Dextrose (Dextrose 50 % 25 Gm/50 Ml Syringe) 25 gm IVPUSH Q15M PRN; Protocol PRN Reason: per Hypoglycemia Standing Ord. Folic Acid (Folic Acid 1 Mg Tablet) 1 mg PO QAM [facility] Glucose (Glucose Gel 15 Gm Gel..Gram.) 15 gm PO Q15M PRN; Protocol PRN Reason: per Hypoglycemia Standing Ord. Sodium Chloride (Ns) 1,000 mls @ 100 mls/hr IVCONT .Q10H [facility] Last Admin: 07/26/22 10:05 Dose: 100 mls/hr Insulin Human Lispro (Insulin Lispro 100 Unit/Ml 3 Ml Vial) 0 unit SUBCUT Q6H [facility]; Protocol Stop: 07/26/22 21:45 Last Admin: 07/26/22 11:20 Dose: Not Given Melatonin (Melatonin 3 Mg Tablet) 6 mg PO BEDTIME PRN PRN Reason: Insomnia Metoprolol Succinate (Metoprolol Succinate Er 25 Mg Tab.Er.24h) 25 mg PO QAM [facility]; Protocol Montelukast Sodium (Montelukast Sodium 10 Mg Tablet) 10 mg PO QPM [facility] Ondansetron HCl (Ondansetron Hcl 4 Mg/2 Ml Vial) 4 mg IVPUSH Q8H PRN PRN Reason: Nausea and Vomiting Pantoprazole Sodium (Pantoprazole Sodium 40 Mg/10 Ml Vial) 40 mg IVPUSH BID@0630,1630 [facility] Last Admin: 07/26/22 05:12 Dose: 40 mg Pharmacy Consult (Consult Rx Perform Med Rec) 1 each MISCELLANE ONCE PRN PRN Reason: Consult order Pravastatin Sodium (Pravastatin Sodium 20 Mg Tablet) 20 mg PO QPM [facility] Quetiapine Fumarate (Quetiapine Fumarate 50 Mg Tablet) 50 mg PO TID [facility] Last Admin: 07/26/22 09:56 Dose: 50 mg Quetiapine Fumarate (Quetiapine Fumarate 25 Mg Tablet) 25 mg PO BID [facility] Senna (Sennosides 8.6 Mg Tablet) 8.6 mg PO BID PRN PRN Reason: constipation Sodium Chloride (0.9 % Sodium Chloride Flush 3 Ml Syringe) 3 ml IVFLUSH QSHIFT [facility] Last Admin: 07/26/22 09:12 Dose: Not Given Thiamine HCl (Thiamine Hcl 100 Mg Tablet) 100 mg PO QAM [facility] Trazodone HCl (Trazodone Hcl 50 Mg Tablet) 50 mg PO BEDTIME PRN PRN Reason: insomnia Home Medications Medication Instructions Recorded Confirmed Last Taken Type albuterol sulfate 90 mcg/actuation 2 puff inhalation Q4H PRN 07/25/22 07/26/22 Unknown History aerosol inhaler shortness of breath or wheezing albuterol sulfate 2.5 mg/3 mL 1 amp inhalation Q4H PRN wheezing 07/26/22 07/26/22 Unknown History (0.083 %) solution for nebulization furosemide 20 mg tablet 0.5 tab PO BID 07/26/22 07/26/22 Unknown History quetiapine 50 mg tablet 25 mg PO BID 07/26/22 07/26/22 Unknown History Physical Exam Vital Signs: Vital Signs: Last Vital Signs Temp 98.2 F 07/26/22 09:49 Pulse 91 07/26/22 09:49 Resp 20 07/26/22 09:49 BP 145/73 H 07/26/22 09:49 Pulse Ox 100 07/26/22 09:49 O2 Del Method 07/26/22 09:49 BMI result Body Mass Index 36.0 Gen appear: Elderly female, NAD HEENT: no icterus Chest: Mild bibasilar rales CVS: S1/S2, regular Abd: soft, nontender, nondistended Rectal: No ext hemorrhoids or anal tag noted. Digital exam with brown stool. Psych: Stable affect, answering questions appropriately Neuro: A/Ox2 noted to move all extremities spontaneously Results Labs CBC & Chem 7: 07/26/22 05:46 07/26/22 05:46 Labs: Short CBC 07/25/22 07/26/22 Range/Units 16:20 05:46 WBC 7.0 3.6 L (4.8-10.8) X10*3/uL Hgb 10.4 L D 10.0 L (12.0-16.0) g/dl Hct 30.9 L D 29.7 L (37.0-47.0) % Plt Count 382 D 323 (160-400) X10*3/uL BMP 07/25/22 07/25/22 07/26/22 16:20 20:04 05:46 Sodium 127 L 132 L 135 Potassium 3.4 3.4 3.4 Chloride 88 L 93 L 98 Carbon Dioxide 26 26 24 BUN 43 H D 42 H 34 H Creatinine 1.91 H 1.83 H 1.43 H Calcium 9.5 D 9.0 9.2 Liver Function 07/25/22 Range/Units 16:20 Total Bilirubin 0.4 (0.0-1.0) mg/dL AST 17 (5-31) U/L ALT 7 (0-31) U/L Alkaline Phosphatase 94 D (39-117) U/L Albumin 4.1 D (3.5-5.0) g/dL Assessment and Plan (1) Black stool: Status: Acute (2) Chronic anemia: Status: Inactive Plan Patient without any evidence of overt GI bleeding on exam today. Labs consistent with chronic anemia which is stable. At present, no indication for urgent endoscopy at this time. However, her chronic anemia should be investig ated specially if she has not had any evaluation recently the last 1-2 years (I was unable to find records for recent endoscopy as mentioned above). This can be pursued as outpatient, unless her counts drop while she is admitted. Recommendations: -maintain 2 large-bore IV access at all times -monitor H&H and transfuse for hemoglobin less than 7 -PPI can be switched to oral -diet can be advanced -EGD not indicated at this time. This can be reviewed if she develops overt GI bleed or H/H drops significantly. -Outpatient follow up will be set up. Procedures Date of Service Date of Service: 07/26/22
--- NOTE | 2022-07-26 12:35 | MHC.CM.PN ---
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
[2022-07-26 15:20] LABS: Glucose, Whole Blood 154 mg/dL (60-115)
[2022-07-26] MEDS: Acetaminophen 325 MG TABLET 650 MG PO (16:31)
[2022-07-26 21:42] LABS: Glucose, Whole Blood 116 mg/dL (60-115)
[2022-07-26] MEDS: QUEtiapine Fumarate 25 MG TABLET PO (22:36)
[2022-07-26] MEDS: Pravastatin Sodium 20 MG TABLET PO (22:36)
[2022-07-26] MEDS: Montelukast Sodium 10 MG TABLET PO (22:36)
[2022-07-27] VITALS: BP 134/74; PULSE 80; RESP 20; TEMP 36.1; O2SAT 95
[2022-07-27] MEDS: Melatonin 3 MG TABLET 6 MG PO (01:05)
[2022-07-27] MEDS: Albuterol Sulfate 90 MCG 8 GM INHALER 2 PUFF INHALE (01:05)
[2022-07-27 03:12] LABS: Glucose, Whole Blood 166 mg/dL (60-115)
[2022-07-27 04:00] VITALS: BP 134/74; PULSE 92; RESP 19; TEMP 36; O2SAT 95
[2022-07-27 04:42] LABS: Hematocrit 29.4 % (37.0-47.0); Hemoglobin 9.6 g/dl (12.0-16.0); Mean Corpuscular HGB Conc 32.7 g/dl (31.0-35.0); Mean Corpuscular Volume 82.8 fL (80.0-98.0); Platelet Count 357 X10*3/uL (160-400); Red Blood Count 3.55 X10*6/uL (4.20-5.50); Red Cell Distribution Width 14.9 % (11.0-16.0); White Blood Count 9.2 X10*3/uL (4.8-10.8)
[2022-07-27 05:03] LABS: Anion Gap 14 (12-20); Blood Urea Nitrogen 33 mg/dL (9-16); Carbon Dioxide 27 mmol/L (22-29); Chloride 99 mmol/L (96-108); Creatinine Clr Calc Pharmacy 44.6; Estimated Glomerular Filt Rate 40; Glucose Random 108 mg/dL (60-115); Potassium 3.7 mmol/L (3.3-5.1); Sodium 136 mmol/L (135-145)
[2022-07-27] MEDS: Pantoprazole Sodium 40 MG/10 ML VIAL IVPUSH (06:57)
[2022-07-27 07:23] LABS: Glucose, Whole Blood 86 mg/dL (60-115)
[2022-07-27 07:39] VITALS: BP 145/76; PULSE 89; RESP 19; O2SAT 98
[2022-07-27] MEDS: Albuterol/Iprat 2.5/0.5MG 3 ML AMPUL.NEB INHALE (08:06)
[2022-07-27 08:08] VITALS: PULSE 76; RESP 20; O2SAT 97
[2022-07-27] MEDS: 0.9 % Sodium Chloride Flush 3 ML SYRINGE IVFLUSH (09:25)
[2022-07-27] MEDS: Metoprolol Succinate ER 25 MG TAB.ER.24H PO (09:25)
[2022-07-27] MEDS: Folic Acid 1 MG TABLET PO (09:25)
[2022-07-27] MEDS: Thiamine HCL 100 MG TABLET PO (09:25)
[2022-07-27] MEDS: QUEtiapine Fumarate 25 MG TABLET PO (09:25)
--- NOTE | 2022-07-27 09:28 | PC.NURSE ---
pt requesting albuterol pump, respiratory notified, rt stated she recently had a updraft treatment and isnt needing the rescue inhailers.
--- NOTE | 2022-07-27 11:51 | MHC.CM.PN ---
Patient has been medically cleared for dc to home today with services. KAMILA spoke with Ana Lilia from [facility] @ [phone], who indicated that Patient's [employer] APPRAISER & RN comes from [facility]/Petra @ [phone](Petra has been informed of today's dc and dc summary will be faxed to Ana Lilia @ [phone]. Patient will return home today at 4PM, via [facility]. Patient's Caregiver/HCP/Kahlil has been informed of the dc plan and ia aware and in agreement.
--- NOTE | 2022-07-27 12:43 | P.DS_ITS ---
DS: Providers Provider Date of Service: 07/27/22 Date of admission: 07/25/22 21:35 Primary care physician: Ryder Monique MD Consults: 07/25/22 21:36 Consult to Gastroenterology Routine Consulting Provider: Breanne Vazquez Reason for consultation: black stools Has provider been notified: No DS: Diagnosis Discharge Diagnosis (1) Diabetes: Status: Acute (2) Hypertension: Status: Acute (3) Black stool: Status: Acute (4) SAGAR (acute kidney injury): Status: Acute (5) Chronic anemia: Status: Inactive DS: Summary Hospital Course Hospital Course: Date of Service: 07/25/22 Chief Complaint: Black stools This is a 67-year-old female with pertinent history of bipolar disorder, alcohol use disorder, essential hypertension, chronic back pain, dul-bpruusq-mbcrrlbav diabetes mellitus who presents to the emergency department for evaluation of generalized weakness.? Patient was seen in the ER 2 days ago when her symptoms were thought to be related to community-acquired pneumonia and she was discharged on p.o. antibiotics.? As per the family from chart review, patient has had increasing weakness and family reports difficulty taking care of her.? At the time of my evaluation, she denies any dyspnea.? Does complain of black stools, painless that started 2 days ago.? Patient denies gisell red blood or blood clots in stool.? Denies hematemesis.? Does not know if she has had similar episodes in the past.? She denies fever, chills, chest discomfort, dyspnea, palpitations, abdominal pain which changes in urinary or bowel habits.? On further questioning, she complains of generalized pain all over specially bilateral leg/calf pain.? No cough. In the emergency department, patient was found to have acute kidney injury. Hospital course 67-year-old female with pertinent history of bipolar disorder, alcohol use disorder, essential hypertension, chronic back pain, ilq-zakjpij-kcmtrltww diabetes mellitus who presents to the emergency department for evaluation of generalized weakness. #.?Black tarry stools, No recurrent episode noted patient hematocrit remains stable patient denied epigastric pain had no hematemesis or melena, likely alcohol related gastritis patient placed on Prilosec seen by home and family living professor they recommend outpatient follow-up patient , patient is tolerating regular diet, recent heme stool test was negative #.? Acute kidney injury, prerenal resolved with IV fluid will discontinue Lasix, echo last year showed preserved EF likely has diastolic dysfunction, recommend to follow low-salt diet - ? #.? Generalized weakness seen by physical therapy they recommend no further therapy patient underwent extensive workup in the emergency room including CT chest, CT abdomen and pelvis, chest x-ray, perfusion study, all studies are unremarkable except for possible 3 mm solid left lower lobe pulmonary nodule, for which a CT chest is recommended as outpatient in 12 months for high risk ,otherwise no follow-up for low risk patient No evidence of acute infection no antibiotic needed. #.? Chronic normocytic anemia hematocrit remains stable #.? Lower extremity swelling with pain-no lower extremity edema noted, Doppler study negative for DVT patient appears euvolemic, recommend Tylenol for ar thritis pain #.? Uek-heovhoe-sfsxfvxkt diabetes mellitus with hyperglycemia- blood sugars stable, previously on metformin.? Recommend to follow diabetic diet #.? Essential hypertension -stable blood pressureon metoprolol #.? COPD -no exacerbation continue home inhalers? #.? Bipolar disorder with-continue Seroquel home dose no behavioral issues noted # history of chronic diastolic congestive heart failure no acute exacerbation hold lasix # history of alcohol use last drink 2 weeks ago strongly recommend to abstain from alcohol, continue thiamine and folic acid Time Spent with Patient Time attestation: Total time spent providing and/or coordinating discharge services: Discharge coordination time: Greater than 30 minutes Quality: Safe Use of Opioids Does Pt have an Active Cancer Diagnosis on the Problem List?: No Quality: Stroke Does the patient have a stroke diagnosis?: No Physical Exam Vital Signs: Vital Signs: Last Vital Signs Temp 96.8 F 07/27/22 04:00 Pulse 76 07/27/22 08:08 Resp 20 07/27/22 08:08 BP 145/76 H 07/27/22 07:39 Pulse Ox 98 07/27/22 07:39 O2 Del Method 07/27/22 07:39 BMI result Body Mass Index 36.0 Const: Other: General alert oriented x3,no acute distress.? Neck? supple no JVD. CVS? regular rate rhythm, Respiratory lungs clear to auscultation, no respiratory distress, no wheeze, no rhonchi. Gastrointestinal abdomen soft, nontender, bowel sounds audible, no guarding , no rigidity. Extremities no edema. Neuro nonfocal , speech clear. Skin no rash Psych appropriate affect no DS: Data Data Completed and Pending Completed studies during hospitalization [Text1]: Procedures Detoxification Services for Substance Abuse Treatment (05/01/21) Insertion of Infusion Device into Superior Vena Cava, Percutaneous Approach (05/01/21) Labs on day of discharge: Laboratory Results - last 24 hr 07/26/22 07/26/22 07/27/22 15:15 21:37 03:02 WBC RBC Hgb Hct MCV MCH MCHC RDW Plt Count MPV Absolute Nucleated RBC Nucleated RBC % (auto) Sodium Potassium Chloride Carbon Dioxide Anion Gap BUN Creatinine Estim Creat Clear Calc Estimated GFR POC Glucose 154 H 116 H 166 H Random Glucose Calcium 07/27/22 07/27/22 07/27/22 04:06 04:06 07:20 WBC 9.2 RBC 3.55 L Hgb 9.6 L Hct 29.4 L MCV 82.8 MCH 27.0 MCHC 32.7 RDW 14.9 Plt Count 357 MPV 9.0 L Absolute Nucleated RBC 0.000 Nucleated RBC % (auto) 0.0 Sodium 136 Potassium 3.7 Chloride 99 Carbon Dioxide 27 Anion Gap 14 BUN 33 H Creatinine 1.33 Estim Creat Clear Calc 44.6 Estimated GFR 40 POC Glucose 86 Random Glucose 108 Calcium 9.0 Preliminary micro results at discharge 07/25/22 16:20 Blood Culture - Preliminary Blood - Venous No growth after 24 hours. 07/25/22 16:15 Blood Culture - Preliminary Blood - Venous No growth after 24 hours. Discharge Plan Discharge Anticipated Discharge Date/Time: 07/27/22 11:01 Patient Disposition: Home Health Service Discharge Diagnosis: Acute pre renal kidney disease Generalized weakness Referrals: [facility] [Other] - 1 Week Name,MD Ryder [Primary Care Provider] - 1 Week Discharge Medications: New omeprazole 20 mg Capsule,Delayed Release(Dr/Ec) 20 mg PO DAILY@0630 Qty: 30 0RF Continued albuterol sulfate 90 mcg/actuation HFA aerosol inhaler 2 puff inhalation Q4H PRN (Reason: shortness of breath or wheezing) albuterol sulfate 2.5 mg /3 mL (0.083 %) solution for nebulization 1 amp inhalation Q4H PRN (Reason: wheezing) quetiapine 50 mg tablet 25 mg PO BID multivitamin [Daily-Cony] Tablet 1 tab PO DAILY 30 Days Qty: 30 0RF sennosides [senna] 8.6 mg tablet 1 tab PO BID PRN (Reason: constipation) 30 Days Qty: 60 0RF ipratropium-albuterol 0.5 mg-3 mg(2.5 mg base)/3 mL solution for nebulization 1 amp inhalation Q4H PRN (Reason: Wheezing) 30 Days Qty: 30 0RF thiamine HCl (vitamin B1) 100 mg tablet 1 tab PO QAM 30 Days Qty: 30 0RF aspirin 81 mg tablet,delayed release (DR/EC) 1 tab PO QPM 30 Days Qty: 30 0RF acetaminophen 650 mg tablet extended release 1 tab PO BID PRN (Reason: pain) 30 Days Qty: 60 0RF baclofen 20 mg Tablet 20 mg PO DAILY PRN (Reason: Back Pain) 30 Days Qty: 30 0RF folic acid 1 mg tablet 1 mg PO QAM 30 Days Qty: 30 0RF montelukast 10 mg tablet 1 tab PO QPM 30 Days Qty: 30 0RF fluticasone propionate [Flovent HFA] 220 mcg/actuation HFA aerosol inhaler 1 puff PO BID Qty: 12 0RF pravastatin 20 mg tablet 1 tab PO QPM 30 Days Qty: 30 0RF metoprolol succinate 25 mg tablet extended release 24 hr 1 tab PO QAM 30 Days Qty: 30 0RF ondansetron 4 mg Tablet,Disintegrating 4 mg PO Q12H PRN (Reason: Nausea) 30 Days Qty: 30 0RF Discontinued furosemide 20 mg tablet 0.5 tab PO BID Discharge Orders: Discharge Order (Routine); Ordered 07/27/22 Ordered By: Malia Saravia Diet: Low fat, low cholesterol Activity on Discharge: Use cane or walker Stand Alone Forms: Patient Portal Discharge page Print Language: Mozambican Care Plan Goals: Presented with generalized weakness seen by Physical therapy they recommend no further services continue ambulating with walker and wheelchair for long dis tance Black stools had no further episodes hematocrit remains stable recommend to abstain from alcohol added Prilosec, recent stool guaiac negative Acute kidney injury likely pre renal resolved,stop Lasix History of diastolic Heart failure currently stable strongly recommend to follow low-salt diet, follow-up with cardiology . Health Concerns: Continue all home medication as above Plan of Treatment: Outpatient follow-up with Cardiology and primary care physician Assessment: As above
[2022-07-27 13:09] LABS: Glucose, Whole Blood 123 mg/dL (60-115)
[2022-07-27 16:00] VITALS: BP 143/78; PULSE 88; RESP 16; TEMP 36.1; O2SAT 96
--- NOTE | 2022-07-27 16:10 | PC.NURSE ---
THIS PCT ASSUMED CARE OF PT AT 1500 ,VS TAKEN PATIENT WATCHING TELEVISION .
== END 2022-07-27 17:35 | disposition home or self-care (01) | DRG 682 ==
LOC: HO.ED 20:43 → HO.EDOVER 21:40
PROVIDERS: Nurse Practitioner Family; Admitting Provider Student in an Organized Health Care Education/Training Program; Emergency Provider Emergency Medicine; PCP Internal Medicine Geriatric Medicine; Visit Provider Hospitalist
DX: N17.9 Acute kidney failure, unspecified (principal); K29.21 Alcoholic gastritis with bleeding; E87.1 Hypo-osmolality and hyponatremia; I50.32 Chronic diastolic (congestive) heart failure; I11.0 Hypertensive heart disease with heart failure; D64.9 Anemia, unspecified; E11.65 Type 2 diabetes mellitus with hyperglycemia; F03.90 Unspecified dementia, unspecified severity, without behavioral disturbance, psychotic disturbance, mood disturbance, and anxiety; M54.9 Dorsalgia, unspecified; J44.9 Chronic obstructive pulmonary disease, unspecified; F31.9 Bipolar disorder, unspecified; G89.29 Other chronic pain; Z20.822 Contact with and (suspected) exposure to COVID-19; Z87.891 Personal history of nicotine dependence; Z88.8 Allergy status to other drugs, medicaments and biological substances; Z79.51 Long term (current) use of inhaled steroids; Z79.82 Long term (current) use of aspirin; Z79.899 Other long term (current) drug therapy
CPT/HCPCS: 36415; 71045; 71046; 71250; 74176; 78580; 80048; 80053; 82947; 83036; 83605; 83690; 83735; 83880; 84484; 85025; 85027; 87040; 87635; 93005; 93970; 94640; 96374; 97161; 99284; 99285; A9540; J0456; J0696; J2405; J2930

== ENCOUNTER 2022-08-02 02:05 | Emergency (ER) | payer MEDICARE, MEDICAID, SELFPAY ==
[2022-08-02 02:29] VITALS: BP 146/76; PULSE 82; RESP 16; TEMP 36.9; O2SAT 98; BMI 31.3
--- NOTE | 2022-08-02 02:33 | ED.GENADULT ---
HPI - General Adult General Chief complaint: General Medical Stated complaint: EDP Time Seen by Provider: 08/02/22 02:24 Source: patient and EMS Mode of arrival: EMS Limitations: no limitations History of Present Illness HPI narrative: According to EMS, the patient was brought to the emergency room for emotional distress. EMS was informed by the patient's that the patient threatened to walk off the roof with her walker. The patient is alert and oriented x4, states that she is not suicidal, she never made such statements. Patient states that her came in drunk from the street and in a bad mood, states that he is not physically aggressive. Patient states that she feels well to return home, patient is very adamant that she is not suicidal or homicidal. Related Data Home Medications Medication Instructions Recorded Confirmed albuterol sulfate 90 mcg/actuation 2 puff inhalation Q4H PRN 07/25/22 07/26/22 aerosol inhaler shortness of breath or wheezing albuterol sulfate 2.5 mg/3 mL 1 amp inhalation Q4H PRN wheezing 07/26/22 07/26/22 (0.083 %) solution for nebulization quetiapine 50 mg tablet 25 mg PO BID 07/26/22 07/26/22 Previous Rx's Medication Instructions Recorded acetaminophen 650 mg 1 tab PO BID PRN pain 30 days #60 04/29/22 tablet,extended release tabs aspirin 81 mg tablet,delayed 1 tab PO QPM 30 days #30 tabs 04/29/22 release baclofen 20 mg tablet 20 mg PO DAILY PRN Back Pain 30 04/29/22 days #30 tabs fluticasone propionate 220 1 puff PO BID #12 grams 04/29/22 mcg/actuation HFA aerosol inhaler (Flovent HFA) folic acid 1 mg tablet 1 mg PO QAM 30 days #30 tabs 04/29/22 ipratropium 0.5 mg-albuterol 3 mg 1 amp inhalation Q4H PRN Wheezing 04/29/22 (2.5 mg base)/3 mL nebulization 30 days #30 multiple units soln metoprolol succinate 25 mg 1 tab PO QAM 30 days #30 tabs 04/29/22 tablet,extended release 24 hr montelukast 10 mg tablet 1 tab PO QPM 30 days #30 tabs 04/29/22 multivitamin (Daily-Cony tablet) 1 tab PO DAILY 30 days #30 tabs 04/29/22 ondansetron 4 mg disintegrating 4 mg PO Q12H PRN Nausea 30 days 04/29/22 tablet #30 tabs pravastatin 20 mg tablet 1 tab PO QPM 30 days #30 tabs 04/29/22 sennosides 8.6 mg tablet (senna) 1 tab PO BID PRN constipation 30 04/29/22 days #60 tabs thiamine HCl (vitamin B1) 100 mg 1 tab PO QAM 30 days #30 tabs 04/29/22 tablet omeprazole 20 mg capsule,delayed 20 mg PO DAILY@0630 #30 caps 07/27/22 release Allergies Allergy/AdvReac Type Severity Reaction Status Date / Time advair Allergy Unknown Unknown Uncoded 03/29/22 01:21 From PAXIL AdvReac Intermediate NAUSEA & Uncoded 03/29/22 01:21 VOMITING Review of Systems Review of Systems: Constitutional : No Weight loss, No Fever, No Chills, No Night Sweats, No Fatigue, No Malaise ENT/Mouth : No Hearing loss, No Ear Pain, No Nasal Congestion, No Sinus Pain, No Hoarseness, No sore throat, No Rhinorrhea, No Swallowing Difficulty Eyes: No Eye Pain, No Swelling, No Redness, No Foreign Body, No Discharge, No Vision Changes Cardiovascular : No Chest Pain, No SOB, No Dyspnea on Exertion, No Orthopnea, No Edema, No Palpitations Respiratory : No Cough, No Sputum, complaining of chronic Wheezing, No Smoke Exposure, No Dyspnea Gastrointestinal : No Nausea, No Vomiting, No Diarrhea, No Constipation, No abdominal Pain, No Hematochezia, No Melena Genitourinary : no irregular bleeding, No Dysuria, No Urinary Frequency, No Hematuria, No Urinary Incontinence, No Urgency, No Flank Pain, No Urinary Flow Changes, No Hesitancy Musculoskeletal : No joint pain, No Myalgias, No Joint Swelling Skin : No Skin Lesions, No rash Neuro : No Weakness, No Numbness, No Paresthesias, No Loss of Consciousness, No Dizziness, No Headache Psych : No Anxiety/Panic, No Depression, No SI/HI/AH/VH, No Social Issues, Heme/Lymph: No Bruising, No Bleeding,No Lymphadenopathy Endocrine : No Polyuria, No Polydipsia, No Temperature Intolerance PMFSH Past Medical History Medical History Acute hyponatremia Acute hyponatremia Alcohol use disorder Bipolar 1 disorder Bipolar I disorder Cannabis use disorder, moderate, dependence Chronic hyponatremia Congestive heart failure COPD (chronic obstructive pulmonary disease) Coronary artery disease Dementia Diabetes Hypertension Korsakoff disease Osteoarthritis Schizophrenia Shortness of breath Sleep apnea Surgical History Hx of appendectomy Social History Social History Household Members: Spouse Housing: Apartment Do you presently have visiting nurse or other home services: Yes Unable to assess alcohol history related to: Unknown Alcohol intake: former Patient Tobacco Use Status: Former Tobacco user Tobacco use type: Cigarette Cigarettes Per Day: 6 Years Smoked: 53 e-Cigarette/Vaping Use: Never Used Second Hand Smoke Exposure: Yes Substance Use Type: Marijuana Advance Directives: Yes Advance Directives on File: Yes Advance Directives Date on File: 10/10/20 service: No Current occupational status: unemployed, disabled and other Sexual orientation: Straight/Heterosexual Physical Exam ED Vital Signs: Vital Signs - 24 hr 08/02/22 02:29 Temperature 98.4 F Pulse Rate 82 Respiratory Rate 16 Blood Pressure 146/76 H Pulse Oximetry 98 BMI result Body Mass Index 31.3 Const Other: Appearance: Alert. Oriented X3. No acute distress. Eyes: Pupils equal, round and reactive to light. ENT: Pharynx normal. Neck: Normal inspection. Neck supple. No lymph nodes noted. No crepitus CVS: Normal heart rate and rhythm. Pulses normal. Normal S1 and S2 Respiratory: No respiratory distress. Mild bilateral wheezing, chronic, good air movement. Oxygen saturation 90% on room air. Abdomen: Soft and nontender. No rigidity. No distention. Skin: Skin warm and dry. Normal skin color. Normal skin turgor. Extremities: No lower extremity edema. No Lacerations. No Rash Neuro: Oriented X 3. No motor deficit. No sensory deficit. Moving all extremities. No slurred speech. CN 2 through 12 grossly intact Psych: calm, cooperative, normal affect Course Course Course Narrative: Patient is alert and oriented x4, no acute distress, calm and cooperative, speaking in full sentences. Patient states that she is not suicidal or homicidal, patient states that her came drunk from the street and called 911 falsely accusing her of suicidal statements. Patient states that she feels safe going home, states that her has never been physically aggressive towards her. Patient feels comfortable being discharged. Patient is requesting that before leaving if we can give her 1 nebulization treatment. Discharge Plan Discharge Clinical Impression: Family problems Patient Disposition: Home, Self-Care Additional Instructions: Please follow-up with your primary care physician tomorrow. If you have any worsening or new symptoms, please return to the emergency room or call 911 Prescriptions: No Action albuterol sulfate 90 mcg/actuation HFA aerosol inhaler 2 puff inhalation Q4H PRN (Reason: shortness of breath or wheezing) albuterol sulfate 2.5 mg /3 mL (0.083 %) solution for nebulization 1 amp inhalation Q4H PRN (Reason: wheezing) quetiapine 50 mg tablet 25 mg PO BID omeprazole 20 mg Capsule,Delayed Release(Dr/Ec) 20 mg PO DAILY@0630 Qty: 30 0RF multivitamin [Daily-Cony] Tablet 1 tab PO DAILY 30 Days Qty: 30 0RF sennosides [senna] 8.6 mg tablet 1 tab PO BID PRN (Reason: constipation) 30 Days Qty: 60 0RF ipratropium-albuterol 0.5 mg-3 mg(2.5 mg base)/3 mL solution for nebulization 1 amp inhalation Q4H PRN (Reason: Wheezing) 30 Days Qty: 30 0RF thiamine HCl (vitamin B1) 100 mg tablet 1 tab PO QAM 30 Days Qty: 30 0RF aspirin 81 mg tablet,delayed release (DR/EC) 1 tab PO QPM 30 Days Qty: 30 0RF acetaminophen 650 mg tablet extended release 1 tab PO BID PRN (Reason: pain) 30 Days Qty: 60 0RF baclofen 20 mg Tablet 20 mg PO DAILY PRN (Reason: Back Pain) 30 Days Qty: 30 0RF folic acid 1 mg tablet 1 mg PO QAM 30 Days Qty: 30 0RF montelukast 10 mg tablet 1 tab PO QPM 30 Days Qty: 30 0RF fluticasone propionate [Flovent HFA] 220 mcg/actuation HFA aerosol inhaler 1 puff PO BID Qty: 12 0RF pravastatin 20 mg tablet 1 tab PO QPM 30 Days Qty: 30 0RF metoprolol succinate 25 mg tablet extended release 24 hr 1 tab PO QAM 30 Days Qty: 30 0RF ondansetron 4 mg Tablet,Disintegrating 4 mg PO Q12H PRN (Reason: Nausea) 30 Days Qty: 30 0RF
--- OUTSIDE RECORDS SUMMARY | 2022-08-02 02:37 | XMS_ITS ---
:1955 Author Care Team Providers Name Role Phone ABDI THOMPSON 1ST FLOOR OTHER [phone] Allergies Code Code System Name Reaction Severity Status Onset Advair Diskus ? ? Active ? 454226 RxNorm Paxil ? ? Active ? Medications Notes: med list reviewed, see mar for accuracy Problems Name Status Onset Date Source ? Type 2 Diabetes Mellitus Active 11/08/2020 ? Hyperlipidemia Active 11/08/2020 ? Bipolar Disorder Active 11/08/2020 ? Mixed Anxiety and Depressive Disorder Active 11/08/2020 ? Obstructive Sleep Apnea Syndrome Active 11/08/2020 ? Essential Hypertension Active 11/08/2020 ? Coronary Arteriosclerosis Active 11/08/2020 ? Chronic Obstructive Lung Disease Active 11/08/2020 ? Constipation Active 11/08/2020 ? Osteoarthritis Active 11/08/2020 ? Fall Active 11/08/2020 ? Alcohol Abuse Active 11/12/2020 ? Abdominal Pain Active 02/17/2021 ? Non-cardiac Chest Pain Active 02/18/2021 ? Cigarette Smoker Active 02/18/2021 ? Recurrent Falls Active 02/18/2021 ? Asthma Active 07/09/2021 ? Pain of Right Knee Region Active 07/09/2021 ? Procedures Notes: appendectomy Results Lab Results None recorded. Past Encounters 07/09/2021 Asthma; Pain of Right Knee Region; Bipol ar Disorder; Chronic Obstructive Lung Disease; Cigarette Smoker; Constipation; Coronary Arteriosclerosis; Essential Hypertension; Hyperlipidemia; Mixed Anxiety an d Depressive Disorder; Obstructive Sleep Apnea Syndrome; Osteoarthritis; Type 2 Diabetes Mellitus; Recurrent Falls Leandra Blair [employer]: [address] [place] [address], Ph. 02/26/2021 Chronic Obstructive Lung Disease; Bipola r Disorder; Abdominal Pain; Constipation; Coronary Arteriosclerosis; Essential Hypertension; Fall; Hyperlipidemia; Mixed Anxiety and Depressive Disorder; Obstruct phuc Sleep Apnea Syndrome; Osteoarthritis ; Recurrent Falls; Type 2 Diabetes Mellitus; Cigarette Smoker; Alcohol Abuse Leandra Blair [employer]: [address] [place] [address], Ph. 02/24/2021 Chronic Obstructive Lung Disease; Bipola r Disorder Leandra Blair [employer]: [address] [place] [address], Ph. 02/18/2021 Abdominal Pain; Non-cardiac Chest Pain; Alcohol Abuse; Chronic Obstructive Lung Disease; Bipolar Disorder; Essential Hypertension; Coronary Arteriosclerosis; Obstructive Sleep Apnea Syndrome; Osteoarthr itis; Type 2 Diabetes Mellitus; Hyperlip idemia; Constipation; Cigarette Smoker; Mixed Anxiety and Depressive Disorder; Recurrent Falls Maribell Marion MD: [address] [place] [address], Ph. 02/17/2021 Abdominal Pain; Alcohol Abuse; Bipolar D isorder; Chronic Obstructive Lung Disease; Constipation; Coronary Arteriosclerosis; Essential Hypertension; Fall; Hyperlipidemia; Mixed Anxiety and Depressive Dis order; Obstructive Sleep Apnea Syndrome; Osteoarthritis; Type 2 Diabetes Mellitus Leandra Blair [employer]: [address] [place] [address], Ph. Social History Tobacco Smoking Status Heavy Tobacco Smoker (1/2 pack per da y) Vaccine List Vaccine Type COVID-19, mRNA, LNP-S, PF, 100 mcg/0.5 m L dose (Moderna) 02/03/2021 influenza, injectable, quadrivalent 11/04/2020 pneumococcal conjugate PCV 13 11/04/2020 Plan of Care Reminders Provider Appointments None recorded. ? ? Lab None recorded. ? ? Referral None recorded. ? ? Procedures None recorded. ? ? Surgeries None recorded. ? ? Imaging None recorded. ? ? Vitals 07/09/2021 08:33AM Initial Intake Note Height Blood Pressure 5 ft 3 in 143/86 mm[Hg] 02/26/2021 08:08AM Discharge Summary Height Weight BMI Blood Pressure 5 ft 3 in 175.8 lbs 31.1 kg/m2 117/65 mm[Hg] 02/24/2021 12:42PM Acute Rounding Visit Height Blood Pressure 5 ft 3 in 137/82 mm[Hg] 02/18/2021 04:50PM Admitting H&P Height Weight BMI Blood Pressure 5 ft 3 in 179.4 lbs 31.8 kg/m2 167/61 mm[Hg] 02/17/2021 07:44AM Initial Intake Note Height Weight BMI Blood Pressure 5 ft 3 in 179.4 lbs 31.8 kg/m2 112/65 mm[Hg] 11/22/2020 07:47AM Discharge Summary Height Blood Pressure 5 ft 3 in 137/77 mm[Hg] 11/20/2020 07:42AM Acute Rounding Visit Height Blood Pressure 5 ft 3 in 124/72 mm[Hg] 11/15/2020 09:39AM Acute Rounding Visit Height Blood Pressure 5 ft 3 in 172/51 mm[Hg] 11/12/2020 01:06PM Admitting H&P Height Weight BMI Blood Pressure 5 ft 3 in 207.6 lbs 36.8 kg/m2 153/78 mm[Hg] 11/08/2020 05:09PM Initial Intake Note Height Weight BMI Blood Pressure 5 ft 3 in 207.6 lbs 36.8 kg/m2 96/80 mm[Hg]
[2022-08-02 02:42] VITALS: BP 179/76; PULSE 100; RESP 22; TEMP 37; O2SAT 96; BMI 28.5
[2022-08-02] MEDS: Albuterol Sulfate (0.083%) 2.5 MG/3 ML VIAL.NEB INHALE (02:51)
[2022-08-02 04:00] VITALS: BP 171/126; PULSE 103; RESP 16; TEMP 37.5; O2SAT 95
--- NOTE | 2022-08-02 04:13 | PC.NURSE ---
Pt used bedpan to void. Wiped patients feet and put socks on.
[2022-08-02 04:55] LABS: Appearance Urine Clear; Color Urine Yellow; Glucose Urine UA Negative (Negative); Leukocyte Esterase Urine Negative (Negative); Nitrite Urine Negative (Negative); PH 6.5 (5.0-9.0); UMIC TRIGGER UACC YES; Urine Blood Small (1+) (Negative); Urine Ketones Negative (Negative); Urine Protein Negative (Neg-Trace)
[2022-08-02 05:09] LABS: Bacteria Urine None Seen (None Seen); Hyaline Casts Urine 0-2 /LPF (0-2); RBC Urine 0-2 /HPF (0-2); Squamous Epithelial Cell Urine 0-2 /HPF (0-2); WBC Urine 0-5 /HPF (0-5)
== END 2022-08-02 09:12 | disposition home or self-care (01) ==
PROVIDERS: Emergency Provider Emergency Medicine; PCP Internal Medicine Geriatric Medicine
DX: F29 Unspecified psychosis not due to a substance or known physiological condition (principal); R45.851 Suicidal ideations; Z63.8 Other specified problems related to primary support group; Z87.891 Personal history of nicotine dependence; Z79.899 Other long term (current) drug therapy
CPT/HCPCS: 81001; 99283; 99285

== ENCOUNTER 2022-08-02 15:36 | Emergency (ER) | payer MEDICARE, MEDICAID, SELFPAY ==
--- NOTE | ~2022-08-02 | CT_ITS ---
EXAMINATION: CT ABDOMEN AND PELVIS WITHOUT CONTRAST CLINICAL INFORMATION: Flank pain COMPARISON: 07/25/2022 TECHNIQUE: Multidetector volumetric imaging was performed from the superior aspect of the liver through the pubic symphysis. Sagittal and coronal reformatted images were obtained on the technologist's workstation. This CT examination was performed using dose optimization techniques as appropriate, variously including the following: *Automated exposure control *Adjustment of mA and/or kV according to patient size (this includes techniques or standardized protocols for targeted exams where dose is matched to indication/reason for exam; i.e. extremities or head) *Use of iterative reconstruction technique DLP: 647 mGy-cm FINDINGS: LUNG BASES: Minimal dependent atelectasis. LIVER, GALLBLADDER, AND BILIARY TREE: The liver is normal in size, shape, and attenuation. No focal hepatic lesion or biliary ductal dilatation is identified. The gallbladder is unremarkable with no evidence of radiopaque gallstones, gallbladder wall thickening, or obvious pericholecystic inflammatory changes. PANCREAS: Unremarkable. SPLEEN: Unremarkable. ADRENAL GLANDS: Unremarkable. KIDNEYS AND URETERS: The kidneys are normal in size, shape, and attenuation. No hydronephrosis, hydroureter, or calculi seen. No perinephric stranding. BLADDER: Unremarkable. GASTROINTESTINAL TRACT: Colonic diverticulosis is noted. The small and large bowel are otherwise unremarkable without evidence of obstruction or pericolonic inflammatory change. Appendix appears collapsed. No free fluid or free air is seen. ABDOMINAL WALL: Small fat-containing umbilical hernia. LYMPH NODES: Normal. VASCULAR: Atherosclerotic calcification along the aorta and common iliac arteries. PELVIC VISCERA: Unremarkable. OSSEOUS STRUCTURES: Multilevel degenerative changes in the spine. Severe degenerative changes of the bilateral hips. CT/CT abdomen pelvis wo IV con IMPRESSION: No acute findings identified in the abdomen/pelvis.
--- NOTE | ~2022-08-02 | XR_ITS ---
EXAMINATION: XR CHEST CLINICAL INFORMATION: Cough, chest pain COMPARISON: 07/25/2022 TECHNIQUE: 2 views of the chest were obtained. FINDINGS: Lung volumes are symmetric. There is minimal streaky right basilar opacity more suggestive of atelectasis. No additional consolidation is seen. No evidence of pneumothorax, pleural effusion, or pulmonary edema. The cardiomediastinal contour is unremarkable. Degenerative changes are noted in the shoulders. XR/XR chest 2V IMPRESSION: Minimal streaky right basilar opacity more suggestive of atelectasis.
[2022-08-02 16:05] VITALS: BP 124/88; BP 130/80; PULSE 105; PULSE 94; RESP 16; TEMP 37.1; O2SAT 99; BMI 35.9
[2022-08-02 18:05] LABS: MANUAL DIFF FLAG NO
[2022-08-02 18:07] LABS: Basophils Percent Auto 0.2 % (0-2); Eosinophils Percent Auto 0.5 % (0-4); Hematocrit 29.2 % (37.0-47.0); Hemoglobin 9.4 g/dl (12.0-16.0); Imm Gran Abs Auto 0.06 X10*3/uL (0.00-0.03); Imm Gran Pct Auto 0.7 % (0.0-0.4); Lymphocytes Absolute Auto 1.5 X10*3/uL (1.2-4.9); Lymphocytes Percent Auto 18.9 % (20-40); Mean Corpuscular HGB Conc 32.2 g/dl (31.0-35.0); Mean Corpuscular Hemoglobin 26.2 pg (27.0-33.0); Mean Corpuscular Volume 81.3 fL (80.0-98.0); Mean Platelet Volume 8.6 fL (9.4-12.3); Monocytes Absolute Auto 1.3 X10*3/uL (0.1-1.2); Monocytes Percent Auto 16.4 % (2-11); Neutrophils Absolute Auto 5.1 x10*3/uL (2.0-8.3); Neutrophils Percent Auto 63.3 % (45-73); Platelet Count 323 X10*3/uL (160-400); Red Blood Count 3.59 X10*6/uL (4.20-5.50); Red Cell Distribution Width 15.5 % (11.0-16.0)
[2022-08-02 18:27] LABS: Alanine Aminotransferase 12 U/L (0-31); Albumin Level 3.7 g/dL (3.5-5.0); Alkaline Phosphatase 96 U/L (39-117); Anion Gap 16 (12-20); Aspartate Amino Transferase 16 U/L (5-31); Bilirubin Total 0.4 mg/dL (0.0-1.0); Blood Urea Nitrogen 29 mg/dL (9-16); Calcium 9.2 mg/dL (8.4-10.2); Carbon Dioxide 27 mmol/L (22-29); Chloride 95 mmol/L (96-108); Creatinine Clr Calc Pharmacy 32.6; Estimated Glomerular Filt Rate 32; Glucose Random 117 mg/dL (60-115); Potassium 3.7 mmol/L (3.3-5.1); Sodium 134 mmol/L (135-145); Total Protein 6.5 g/dL (6.5-8.0)
[2022-08-02 18:30] LABS: B Type Natriuretic Peptide 47 pg/mL (<100)
[2022-08-02 18:34] LABS: Venous Blood Gas Refer to POC result
[2022-08-02 18:35] LABS: VBG Base Excess 2.7 mmol/L; VBG HCO3 27 mmol/L (22-26); VBG pCO2 41 mmHg; VBG pH 7.42 (7.32-7.43); VBG pO2 56 mmHg
[2022-08-02 18:46] LABS: Influenza A PCR NEGATIVE (Negative); Influenza B PCR NEGATIVE (Negative); Resp Syncy Virus RNA Qual PCR NEGATIVE (Negative); SARS COV2 PCR INHOUSE NEGATIVE (Negative)
--- NOTE | 2022-08-02 19:29 | ED_ITS ---
HPI - General Adult General Chief complaint: Psychiatric Symptoms Stated complaint: AMS Time Seen by Provider: 08/02/22 16:25 Source: patient and EMS Mode of arrival: EMS History of Present Illness HPI narrative: 67-year-old female brought in by EMS after they were called by the and on arrival EMS states that patient was agitated yelling in the house. Patient does have known dementia and was evaluated here in the emergency room earlier in the day. Patient herself is cheerful and denies any shortness of breath, chest pain/palpitations. Related Data Home Medications Medication Instructions Recorded Confirmed albuterol sulfate 90 mcg/actuation 2 puff inhalation Q4H PRN 07/25/22 07/26/22 aerosol inhaler shortness of breath or wheezing albuterol sulfate 2.5 mg/3 mL 1 amp inhalation Q4H PRN wheezing 07/26/22 07/26/22 (0.083 %) solution for nebulization quetiapine 50 mg tablet 25 mg PO BID 07/26/22 07/26/22 Previous Rx's Medication Instructions Recorded acetaminophen 650 mg 1 tab PO BID PRN pain 30 days #60 04/29/22 tablet,extended release tabs aspirin 81 mg tablet,delayed 1 tab PO QPM 30 days #30 tabs 04/29/22 release baclofen 20 mg tablet 20 mg PO DAILY PRN Back Pain 30 04/29/22 days #30 tabs fluticasone propionate 220 1 puff PO BID #12 grams 04/29/22 mcg/actuation HFA aerosol inhaler (Flovent HFA) folic acid 1 mg tablet 1 mg PO QAM 30 days #30 tabs 04/29/22 ipratropium 0.5 mg-albuterol 3 mg 1 amp inhalation Q4H PRN Wheezing 04/29/22 (2.5 mg base)/3 mL nebulization 30 days #30 multiple units soln metoprolol succinate 25 mg 1 tab PO QAM 30 days #30 tabs 04/29/22 tablet,extended release 24 hr montelukast 10 mg tablet 1 tab PO QPM 30 days #30 tabs 04/29/22 multivitamin (Daily-Cony tablet) 1 tab PO DAILY 30 days #30 tabs 04/29/22 ondansetron 4 mg disintegrating 4 mg PO Q12H PRN Nausea 30 days 04/29/22 tablet #30 tabs pravastatin 20 mg tablet 1 tab PO QPM 30 days #30 tabs 04/29/22 sennosides 8.6 mg tablet (senna) 1 tab PO BID PRN constipation 30 04/29/22 days #60 tabs thiamine HCl (vitamin B1) 100 mg 1 tab PO QAM 30 days #30 tabs 04/29/22 tablet omeprazole 20 mg capsule,delayed 20 mg PO DAILY@0630 #30 caps 07/27/22 release Allergies Allergy/AdvReac Type Severity Reaction Status Date / Time advair Allergy Unknown Unknown Uncoded 03/29/22 01:21 From PAXIL AdvReac Intermediate NAUSEA & Uncoded 03/29/22 01:21 VOMITING Review of Systems Review of Systems: Pertinent positives and negatives as stated in HPI. [facility] Past Medical History Source: nursing notes reviewed Medical History Acute hyponatremia Acute hyponatremia Alcohol use disorder Bipolar 1 disorder Bipolar I disorder Cannabis use disorder, moderate, dependence Chronic hyponatremia Congestive heart failure COPD (chronic obstructive pulmonary disease) Coronary artery disease Dementia Diabetes Hypertension Korsakoff disease Osteoarthritis Schizophrenia Shortness of breath Sleep apnea Surgical History Hx of appendectomy Social History Social History Household Members: Spouse Housing: Apartment Do you presently have visiting nurse or other home services: Yes Unable to assess alcohol history related to: Unknown Alcohol intake: former Patient Tobacco Use Status: Former Tobacco user Tobacco use type: Cigarette Cigarettes Per Day: 6 Years Smoked: 53 e-Cigarette/Vaping Use: Never Used Second Hand Smoke Exposure: Yes Substance Use Type: Marijuana Advance Directives: Yes Advance Directives on File: Yes Advance Directives Date on File: 10/10/20 service: No Current occupational status: unemployed, disabled and other Sexual orientation: Straight/Heterosexual Physical Exam ED Vital Signs: Vital Signs - 24 hr 08/02/22 16:05 08/02/22 20:38 08/03/22 01:27 Temperature 98.8 F 98.6 F 98.9 F Pulse Rate 94 90 74 Respiratory Rate 16 16 16 Blood Pressure 124/88 130/87 Pulse Oximetry 99 100 99 Oxygen Delivery Method Room Air Room Air Room Air 08/03/22 01:58 Temperature 97.9 F Pulse Rate 83 Respiratory Rate 18 Blood Pressure 128/59 L Pulse Oximetry 100 Oxygen Delivery Method Room Air BMI result Body Mass Index 35.9 VITAL SIGNS: Reviewed. GENERAL: Well developed, well nourished, in no acute distress. HEAD: Normocephalic/atraumatic EYES: PERRLA, EOMI EARS: Ext canals without abnormality OROPHARYNX: no oral lesions noted, posterior pharynx clear LUNGS: Good inspiratory effort, scattered rhonchi but no wheeze or rales and no tachypnea or increased work of breathing. SpO2<99> CARDIOVASCULAR: Regular rate and rhythm without noted murmurs, no JVD or lower extremity edema. ABDOMEN: Soft, non-tender, non-distended with bowel sounds. MUSCULOSKELETAL: No tenderness, deformities, or effusions noted on gross inspection. EXTREMITIES: No cyanosis, clubbing or edema. SKIN: Inspection of the skin reveals no rashes NEUROLOGIC: Alert and oriented x 2. Strength and sensation to light touch were grossly intact x 4. Course Course Course Narrative: 67-year-old female with history and clinical presentation consistent with baseline dementia and review of all investigations demonstrates small SAGAR without evidence of UTI. Patient has remained hemodynamically stable throughout the day and given the SAGAR and presence blood within the urine CT scan was obtained but found to be negative for acute intra-abdominal findings. Chest x- ray without acute findings. Patient noted to be eating and drinking and otherwise stable for discharge to home. Signed out to Dr Fragoso Medical Decision Making Lab Data Result diagrams: 08/02/22 17:59 08/02/22 17:59 Labs: Lab Results 08/02/22 08/02/22 08/02/22 Range/Units 17:59 17:59 17:59 WBC 8.0 (4.8-10.8) X10*3/uL RBC 3.59 L (4.20-5.50) X10*6/uL Hgb 9.4 L (12.0-16.0) g/dl Hct 29.2 L (37.0-47.0) % MCV 81.3 (80.0-98.0) fL MCH 26.2 L (27.0-33.0) pg MCHC 32.2 (31.0-35.0) g/dl RDW 15.5 (11.0-16.0) % Plt Count 323 (160-400) X10*3/uL MPV 8.6 L (9.4-12.3) fL Immature Gran % (Auto) 0.7 H (0.0-0.4) % Neut % (Auto) 63.3 (45-73) % Lymph % (Auto) 18.9 L (20-40) % [place] % (Auto) 16.4 H (2-11) % Eos % (Auto) 0.5 (0-4) % Baso % (Auto) 0.2 (0-2) % Lymph # (Auto) 1.5 (1.2-4.9) X10*3/uL [place] # (Auto) 1.3 H (0.1-1.2) X10*3/uL Eos # (Auto) 0.0 (0.0-0.4) X10*3/uL Baso # (Auto) 0.0 (0.0-0.2) X10*3/uL Abs Immat Gran (auto) 0.06 H (0.00-0.03) X10*3/uL Absolute Neuts (auto) 5.1 (2.0-8.3) x10*3/uL Absolute Nucleated RBC 0.000 (0.0-0.012) X10*3/uL Nucleated RBC % (auto) 0.0 (0.0-0.2) /100WBC VBG pH (7.32-7.43) VBG pCO2 mmHg VBG pO2 mmHg VBG HCO3 (22-26) mmol/L VBG O2 Saturation % VBG Base Excess mmol/L Sodium 134 L (135-145) mmol/L Potassium 3.7 (3.3-5.1) mmol/L Chloride 95 L (96-108) mmol/L Carbon Dioxide 27 (22-29) mmol/L Anion Gap 16 (12-20) BUN 29 H (9-16) mg/dL Creatinine 1.62 H (0.5-1.4) mg/dL Estim Creat Clear Calc 32.6 Estimated GFR 32 POC Glucose (60-115) mg/dL Random Glucose 117 H (60-115) mg/dL Calcium 9.2 (8.4-10.2) mg/dL Total Bilirubin 0.4 (0.0-1.0) mg/dL AST 16 (5-31) U/L ALT 12 (0-31) U/L Alkaline Phosphatase 96 (39-117) U/L B-Natriuretic Peptide 47 (<100) pg/mL Total Protein 6.5 (6.5-8.0) g/dL Albumin 3.7 (3.5-5.0) g/dL Urine Color Urine Appearance Urine pH (5.0-9.0) Ur Specific Cope (1.005-1.025) Urine Protein (Neg-Trace) mg/dL Urine Glucose (UA) (Negative) mg/dL Urine Ketones (Negative) mg/dL Urine Blood (Negative) Urine Nitrite (Negative) Ur Leukocyte Esterase (Negative) Urine RBC (0-2) /HPF Urine WBC (0-5) /HPF Ur Squamous Epith Cells (0-2) /HPF Urine Bacteria (None Seen) Hyaline Casts (0-2) /LPF Influenza Type A (PCR) (Negative) Influenza Type B (PCR) (Negative) RSV RNA Qual (PCR) (Negative) SARS-CoV-2 RNA (RT-PCR) (Negative) 08/02/22 08/02/22 08/02/22 Range/Units 17:59 18:05 20:24 WBC (4.8-10.8) X10*3/uL RBC (4.20-5.50) X10*6/uL Hgb (12.0-16.0) g/dl Hct (37.0-47.0) % MCV (80.0-98.0) fL MCH (27.0-33.0) pg MCHC (31.0-35.0) g/dl RDW (11.0-16.0) % Plt Count (160-400) X10*3/uL MPV (9.4-12.3) fL Immature Gran % (Auto) (0.0-0.4) % Neut % (Auto) (45-73) % Lymph % (Auto) (20-40) % [place] % (Auto) (2-11) % Eos % (Auto) (0-4) % Baso % (Auto) (0-2) % Lymph # (Auto) (1.2-4.9) X10*3/uL [place] # (Auto) (0.1-1.2) X10*3/uL Eos # (Auto) (0.0-0.4) X10*3/uL Baso # (Auto) (0.0-0.2) X10*3/uL Abs Immat Gran (auto) (0.00-0.03) X10*3/uL Absolute Neuts (auto) (2.0-8.3) x10*3/uL Absolute Nucleated RBC (0.0-0.012) X10*3/uL Nucleated RBC % (auto) (0.0-0.2) /100WBC VBG pH 7.42 (7.32-7.43) VBG pCO2 41 mmHg VBG pO2 56 mmHg VBG HCO3 27 H (22-26) mmol/L VBG O2 Saturation 85.0 % VBG Base Excess 2.7 mmol/L Sodium (135-145) mmol/L Potassium (3.3-5.1) mmol/L Chloride (96-108) mmol/L Carbon Dioxide (22-29) mmol/L Anion Gap (12-20) BUN (9-16) mg/dL Creatinine (0.5-1.4) mg/dL Estim Creat Clear Calc Estimated GFR POC Glucose (60-115) mg/dL Random Glucose (60-115) mg/dL Calcium (8.4-10.2) mg/dL Total Bilirubin (0.0-1.0) mg/dL AST (5-31) U/L ALT (0-31) U/L Alkaline Phosphatase (39-117) U/L B-Natriuretic Peptide (<100) pg/mL Total Protein (6.5-8.0) g/dL Albumin (3.5-5.0) g/dL Urine Color Yellow Urine Appearance Clear Urine pH 6.5 (5.0-9.0) Ur Specific Cope 1.010 (1.005-1.025) Urine Protein Negative (Neg-Trace) mg/dL Urine Glucose (UA) Negative (Negative) mg/dL Urine Ketones Negative (Negative) mg/dL Urine Blood Moderate (2+) H (Negative) Urine Nitrite Negative (Negative) Ur Leukocyte Esterase Negative (Negative) Urine RBC 11-20 H (0-2) /HPF Urine WBC 0-5 (0-5) /HPF Ur Squamous Epith Cells 0-2 (0-2) /HPF Urine Bacteria None Seen (None Seen) Hyaline Casts 0-2 (0-2) /LPF Influenza Type A (PCR) NEGATIVE (Negative) Influenza Type B (PCR) NEGATIVE (Negative) RSV RNA Qual (PCR) NEGATIVE (Negative) SARS-CoV-2 RNA (RT-PCR) NEGATIVE (Negative) 08/03/22 Range/Units 02:42 WBC (4.8-10.8) X10*3/uL RBC (4.20-5.50) X10*6/uL Hgb (12.0-16.0) g/dl Hct (37.0-47.0) % MCV (80.0-98.0) fL MCH (27.0-33.0) pg MCHC (31.0-35.0) g/dl RDW (11.0-16.0) % Plt Count (160-400) X10*3/uL MPV (9.4-12.3) fL Immature Gran % (Auto) (0.0-0.4) % Neut % (Auto) (45-73) % Lymph % (Auto) (20-40) % [place] % (Auto) (2-11) % Eos % (Auto) (0-4) % Baso % (Auto) (0-2) % Lymph # (Auto) (1.2-4.9) X10*3/uL [place] # (Auto) (0.1-1.2) X10*3/uL Eos # (Auto) (0.0-0.4) X10*3/uL Baso # (Auto) (0.0-0.2) X10*3/uL Abs Immat Gran (auto) (0.00-0.03) X10*3/uL Absolute Neuts (auto) (2.0-8.3) x10*3/uL Absolute Nucleated RBC (0.0-0.012) X10*3/uL Nucleated RBC % (auto) (0.0-0.2) /100WBC VBG pH (7.32-7.43) VBG pCO2 mmHg VBG pO2 mmHg VBG HCO3 (22-26) mmol/L VBG O2 Saturation % VBG Base Excess mmol/L Sodium (135-145) mmol/L Potassium (3.3-5.1) mmol/L Chloride (96-108) mmol/L Carbon Dioxide (22-29) mmol/L Anion Gap (12-20) BUN (9-16) mg/dL Creatinine (0.5-1.4) mg/dL Estim Creat Clear Calc Estimated GFR POC Glucose 137 H (60-115) mg/dL Random Glucose (60-115) mg/dL Calcium (8.4-10.2) mg/dL Total Bilirubin (0.0-1.0) mg/dL AST (5-31) U/L ALT (0-31) U/L Alkaline Phosphatase (39-117) U/L B-Natriuretic Peptide (<100) pg/mL Total Protein (6.5-8.0) g/dL Albumin (3.5-5.0) g/dL Urine Color Urine Appearance Urine pH (5.0-9.0) Ur Specific Cope (1.005-1.025) Urine Protein (Neg-Trace) mg/dL Urine Glucose (UA) (Negative) mg/dL Urine Ketones (Negative) mg/dL Urine Blood (Negative) Urine Nitrite (Negative) Ur Leukocyte Esterase (Negative) Urine RBC (0-2) /HPF Urine WBC (0-5) /HPF Ur Squamous Epith Cells (0-2) /HPF Urine Bacteria (None Seen) Hyaline Casts (0-2) /LPF Influenza Type A (PCR) (Negative) Influenza Type B (PCR) (Negative) RSV RNA Qual (PCR) (Negative) SARS-CoV-2 RNA (RT-PCR) (Negative) Discharge Plan Discharge Clinical Impression: Dementia Patient Disposition: Still a Patient Instructions: Dementia (ED) Additional Instructions: 1. Resume all home medications as prescribed. 2. Continue to drink plenty water. 3. Follow-up with your primary care provider on Wednesday morning. Return to the ER for worsening symptoms. Prescriptions: No Action albuterol sulfate 90 mcg/actuation HFA aerosol inhaler 2 puff inhalation Q4H PRN (Reason: shortness of breath or wheezing) albuterol sulfate 2.5 mg /3 mL (0.083 %) solution for nebulization 1 amp inhalation Q4H PRN (Reason: wheezing) quetiapine 50 mg tablet 25 mg PO BID omeprazole 20 mg Capsule,Delayed Release(Dr/Ec) 20 mg PO DAILY@0630 Qty: 30 0RF multivitamin [Daily-Cony] Tablet 1 tab PO DAILY 30 Days Qty: 30 0RF sennosides [senna] 8.6 mg tablet 1 tab PO BID PRN (Reason: constipation) 30 Days Qty: 60 0RF ipratropium-albuterol 0.5 mg-3 mg(2.5 mg base)/3 mL solution for nebulization 1 amp inhalation Q4H PRN (Reason: Wheezing) 30 Days Qty: 30 0RF thiamine HCl (vitamin B1) 100 mg tablet 1 tab PO QAM 30 Days Qty: 30 0RF aspirin 81 mg tablet,delayed release (DR/EC) 1 tab PO QPM 30 Days Qty: 30 0RF acetaminophen 650 mg tablet extended release 1 tab PO BID PRN (Reason: pain) 30 Days Qty: 60 0RF baclofen 20 mg Tablet 20 mg PO DAILY PRN (Reason: Back Pain) 30 Days Qty: 30 0RF folic acid 1 mg tablet 1 mg PO QAM 30 Days Qty: 30 0RF montelukast 10 mg tablet 1 tab PO QPM 30 Days Qty: 30 0RF fluticasone propionate [Flovent HFA] 220 mcg/actuation HFA aerosol inhaler 1 puff PO BID Qty: 12 0RF pravastatin 20 mg tablet 1 tab PO QPM 30 Days Qty: 30 0RF metoprolol succinate 25 mg tablet extended release 24 hr 1 tab PO QAM 30 Days Qty: 30 0RF ondansetron 4 mg Tablet,Disintegrating 4 mg PO Q12H PRN (Reason: Nausea) 30 Days Qty: 30 0RF Referrals: Name,MD Ryder [Primary Care Provider] -
[2022-08-02 20:38] VITALS: PULSE 90; RESP 16; TEMP 37; O2SAT 100
[2022-08-02 20:41] LABS: Appearance Urine Clear; Color Urine Yellow; Glucose Urine UA Negative (Negative); Leukocyte Esterase Urine Negative (Negative); Nitrite Urine Negative (Negative); PH 6.5 (5.0-9.0); UMIC TRIGGER UACC YES; Urine Blood Moderate (2+) (Negative); Urine Ketones Negative (Negative); Urine Protein Negative (Neg-Trace)
[2022-08-02 21:08] LABS: Bacteria Urine None Seen (None Seen); Hyaline Casts Urine 0-2 /LPF (0-2); Squamous Epithelial Cell Urine 0-2 /HPF (0-2); WBC Urine 0-5 /HPF (0-5)
[2022-08-03] VITALS (11 sets, daily range): BP systolic 114–170; BP diastolic 58–104; PULSE 74–111; RESP 16–20; TEMP 35.7–37.4; O2SAT 94–100
--- NOTE | 2022-08-03 00:01 | PC.NURSE ---
Pt has been resting comfortably on stretcher throughout duration of being here. Pt has baseline dementia and occasionally gets confused about things. She is easily redirectable. Pt has ate dinner and is now sleeping
[2022-08-03 02:46] LABS: Glucose, Whole Blood 137 mg/dL (60-115)
--- NOTE | 2022-08-03 06:01 | PC.NURSE ---
pt resting comfortably, calls out for assistance. pt repositions with holding her neck. pt has been pleasant and needs met. periwick in place with good urine output.
--- NOTE | 2022-08-03 07:00 | PC.NURSE ---
came into work patient has EKG not done for 16hours I spoke to provider , provider state no need to do at this time.
--- NOTE | 2022-08-03 08:02 | PC.NURSE ---
Pt eating breakfast, awaiting transportation home
--- NOTE | 2022-08-03 11:02 | PHA.MEDREC ---
Pharmacy Consult ? Medication Reconciliation Pharmacy has completed the medication reconciliation. Patient just discharged 07/27. Per discharge summary patient to stop lasix due to SAGAR. Katherine Irby, PharmD
--- NOTE | 2022-08-03 11:27 | PC.NURSE ---
Patient clean bed change and reposition.
--- NOTE | 2022-08-03 14:17 | MHC.CM.ED ---
Received case management consult from [facility] Blum this morning. Patient was supposed to discharge home with resumption of services and sig other/HCP, Juanjo. Juanjo does not feel he can safely take patient home. Patient and Juanjo are well known to case management and ER. Patient is active with [facility] (previously [facility] for VNA for medication administration. 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 Patient's HCP is invoked due to dementia. T/W met with Juanjo. Juanjo again does not feel like he can care for patient. T/W explained placement has been found in the past, but Juanjo has removed family from the facility. This will make placement difficult. Juanjo aware placement will try to be found, however, if no bed offers are made by 08/04 at 9am, patient will have to come home with resumption of services. Juanjo verbalized understanding. T/W spoke with Emily at [facility], via telephone at [phone]. Emily aware of discharge plan. Mike Edi from [facility] come to ER. Home situation explained to Officer Edi. He will speak to Juanjo. Referral broadcasted in [facility]. 67 referrals made. Continue to monitor for d/c needs.
[2022-08-03] MEDS: Aspirin Enteric Coated 81 MG TABLET.DR PO (18:02)
[2022-08-03] MEDS: Pravastatin Sodium 20 MG TABLET PO (18:02)
[2022-08-03] MEDS: Thiamine HCL 100 MG TABLET PO (18:03)
[2022-08-03] MEDS: Montelukast Sodium 10 MG TABLET PO (18:03)
[2022-08-03] MEDS: Metoprolol Succinate ER 25 MG TAB.ER.24H PO (18:03)
[2022-08-03] MEDS: Folic Acid 1 MG TABLET PO (18:03)
--- NOTE | 2022-08-03 19:47 | PC.NURSE ---
Care of patient assumed at 1900. Patient found crying in stretcher stating her head hurts. She immediately stops crying upon this RN's entry. She is provided with an ice pack for her head and endorses immediate relief. She is assisted with repositioning for comfort. She is alert, able to state her name, birthday, location, and year appropriately. She lives at home with her and states she called 911 because her legs were swollen- no edema noted- +sensitivity to touch.
[2022-08-03] MEDS: QUEtiapine Fumarate 25 MG TABLET PO (20:07)
[2022-08-03] MEDS: Baclofen 20 MG TABLET PO (21:06)
--- NOTE | 2022-08-03 22:40 | PC.NURSE ---
Patient boosted and repositioned in stretcher several times. She continues to frequently shout out for help, juice, blankets, ice packs, and other needs. She has call jones within reach, is oriented x4, and has been informed of its use, but she prefers to shout aloud. she is consolable and redirectable, but continues to require very frequent attention and emotional support.
--- NOTE | 2022-08-04 00:07 | PC.NURSE ---
pt cleaned, linens changed. assisted to bedside commode, unable to go at this time. pt now resting comfortably in bed with call jones at bedside.
[2022-08-04] MEDS: Omeprazole 20 MG CAPSULE.DR PO (06:00)
[2022-08-04 06:07] VITALS: BP 133/77; PULSE 83; RESP 18; TEMP 36.7; O2SAT 98
[2022-08-04] MEDS: Metoprolol Succinate ER 25 MG TAB.ER.24H PO (07:56)
[2022-08-04] MEDS: QUEtiapine Fumarate 25 MG TABLET PO ×2 (07:56→21:45)
[2022-08-04] MEDS: Multivitamin TABLET 1 TAB PO (07:56)
[2022-08-04] MEDS: Folic Acid 1 MG TABLET PO (07:56)
[2022-08-04] MEDS: Thiamine HCL 100 MG TABLET PO (07:57)
--- NOTE | 2022-08-04 10:19 | MHC.CM.ED ---
Addendum entered by Risa Lozano 08/04/22 14:39: Emily from [facility] has been in contact with patient's daughter, Karyn. Karyn lives in [place]. Karyn is requesting telephone call from . Attempted to reach Karyn via telephone at [phone]. Unable to reach Karyn at this time. Original Note: Patient remains in the ER. No bed offers have been made locally. Spoke with sig other/HCP, Juanjo via telephone at [phone]. Juanjo requesting referral be broadcasted throughout the [facility] for circular saw operator care. Referral broadcasted in the [facility] to [facility] that [facility] and having Turkish speaking staff. 183 referrals sent. Emily of [facility] made aware. Continue to monitor for d/c needs.
[2022-08-04] MEDS: Acetaminophen 325 MG TABLET 650 MG PO (13:30)
[2022-08-04 13:42] VITALS: BP 144/80; PULSE 84; RESP 12; O2SAT 99
[2022-08-04] MEDS: Albuterol Sulfate 90 MCG 8 GM INHALER 2 PUFF INHALE (14:57)
--- NOTE | 2022-08-04 17:32 | PC.NURSE ---
PT HAS BEEN IN NAD THROUGHOUT THE DAY, STANDING UP TO COMMODE WITH MINIMAL ASSISTANCE. REQUIRED INHALER WITH GOOD EFFECT TODAY FOR WHEEZING, SPO2 REMAINED WNL.
[2022-08-04 18:54] VITALS: BP 153/119; PULSE 94; RESP 15; TEMP 36.8; O2SAT 100
[2022-08-04] MEDS: Pravastatin Sodium 20 MG TABLET PO (19:34)
[2022-08-04] MEDS: Montelukast Sodium 10 MG TABLET PO (19:34)
[2022-08-04] MEDS: Aspirin Enteric Coated 81 MG TABLET.DR PO (19:34)
[2022-08-04 19:40] VITALS: BP 158/70; PULSE 95; RESP 18; TEMP 36.7; O2SAT 98
[2022-08-04 21:47] VITALS: BP 129/67; PULSE 75; RESP 16; O2SAT 96
[2022-08-05] VITALS (8 sets, daily range): BP systolic 121–155; BP diastolic 69–83; PULSE 74–97; RESP 16–18; TEMP 36.2–36.8; O2SAT 96–100
[2022-08-05] MEDS: Baclofen 20 MG TABLET PO (00:53)
--- NOTE | 2022-08-05 05:48 | PC.NURSE ---
pt been up mostly all night wanting to eat and drink and use commode.. .. pt had 2 accidents ..
--- NOTE | 2022-08-05 06:13 | PC.NURSE ---
pt care was given to the pt due to incontinence., pt back in bed with new clean bed linen and huber and blankets
[2022-08-05] MEDS: Omeprazole 20 MG CAPSULE.DR PO (06:22)
[2022-08-05] MEDS: Fluticasone Propionate 250 MCG BLST.W.DEV 1 PUFF INHALE ×2 (09:25→19:44)
[2022-08-05] MEDS: Metoprolol Succinate ER 25 MG TAB.ER.24H PO (09:55)
[2022-08-05] MEDS: Ondansetron ODT 4 MG TAB.RAPDIS TRANSLINGU (09:56)
[2022-08-05] MEDS: Thiamine HCL 100 MG TABLET PO (09:56)
[2022-08-05] MEDS: Multivitamin TABLET 1 TAB PO (09:56)
[2022-08-05] MEDS: Folic Acid 1 MG TABLET PO (09:56)
[2022-08-05] MEDS: QUEtiapine Fumarate 25 MG TABLET PO ×2 (09:56→20:40)
[2022-08-05] MEDS: Acetaminophen 325 MG TABLET 650 MG PO ×2 (09:56→20:40)
--- NOTE | 2022-08-05 12:34 | PC.NURSE ---
pt yelling out in pain, reports she has chronic abdominal pain. medicated x2 with both tylenol and ibuprofen. pt reports unable to eat due to ppain however she ate 100% of her lunch.
--- NOTE | 2022-08-05 13:36 | MHC.CM.ED ---
Patient remains in ER. 180 referrals have been made. No bed offers made at this time. T/W spoke with patient's daughter, Karyn, via telephone at [phone]. Karyn lives in [place]. Karyn is concerned because Juanjo doesn't consistently report information to Karyn. T/W explained placement is trying to be found. 180 referrals have been sent out. But no bed offers have been made. Juanjo keeps suggesting to Karyn that she should take her mother to [place] and care for her. Karyn has custody of her 3 grandchildren and is not able to care for her mother. Case Management will continue to search for placement options. Continue to monitor for d/c needs.
[2022-08-05] MEDS: Ibuprofen 800 MG TABLET PO (14:05)
[2022-08-05] MEDS: Sennosides 8.6 MG TABLET PO (14:05)
--- NOTE | 2022-08-05 15:40 | PC.NURSE ---
pt was sitting on the end of her bed screaming, reports she in pain. she then proceeded to lower herself to the floor - refusing to get up on her own, assisted by staff back to bed. reminder to use call jones to get up to commode/ for all needs. pt VSS. SaO2 100%, HR 81, BP 149/73. Provider David crenshaw
[2022-08-05] MEDS: Montelukast Sodium 10 MG TABLET PO (19:22)
[2022-08-05] MEDS: Pravastatin Sodium 20 MG TABLET PO (19:22)
[2022-08-05] MEDS: Aspirin Enteric Coated 81 MG TABLET.DR PO (19:22)
--- NOTE | 2022-08-05 20:43 | PC.NURSE ---
Patient requesting Tylenol for pain-Dr. Najera notified. OK to administer Tylenol 1 hour earlier scheduled then scheduled dose.
--- NOTE | 2022-08-05 21:24 | PC.NURSE ---
pt had a medium bowel movement, pt happy she going home tomorrow she states she ready to go
[2022-08-06 05:26] VITALS: BP 136/76; PULSE 71; RESP 18; TEMP 36.4; O2SAT 95
--- NOTE | 2022-08-06 06:01 | PC.NURSE ---
pt was up most of the night ringing for food and drinks, pt finally fell asleep around 1am , had 2 incontinence episodes pt received timothy care each time and put back into bed, she had a good night
[2022-08-06 07:48] VITALS: PULSE 87; RESP 16; O2SAT 98
[2022-08-06] MEDS: Fluticasone Propionate 250 MCG BLST.W.DEV 1 PUFF INHALE (07:48)
[2022-08-06] MEDS: Omeprazole 20 MG CAPSULE.DR PO (08:02)
[2022-08-06] MEDS: Thiamine HCL 100 MG TABLET PO (08:02)
[2022-08-06] MEDS: QUEtiapine Fumarate 25 MG TABLET PO ×2 (08:02→20:10)
[2022-08-06] MEDS: Multivitamin TABLET 1 TAB PO (08:02)
[2022-08-06] MEDS: Folic Acid 1 MG TABLET PO (08:02)
[2022-08-06] MEDS: Metoprolol Succinate ER 25 MG TAB.ER.24H PO (08:02)
[2022-08-06 08:04] VITALS: BP 145/73; PULSE 85; RESP 16; O2SAT 95
--- NOTE | 2022-08-06 11:47 | PC.NURSE ---
pt ate breakfast, was incontinent of urine and stool and cleaned, ringing the call jones frequently for bed adjustments, pt reports she just received a phone call from her sister and was told the her mother just in [place], has been crying some and wants to go home
[2022-08-06] MEDS: LORazepam 1 MG TABLET 2 MG PO (12:16)
[2022-08-06 15:05] VITALS: BP 135/71; PULSE 99; RESP 20; TEMP 37; O2SAT 98
--- NOTE | 2022-08-06 15:11 | PC.NURSE ---
pt requesting to leave, spoke w case management, pt unable to sign herself out of the hospital, case management continues to look for placement.
[2022-08-06] MEDS: Pravastatin Sodium 20 MG TABLET PO (20:07)
[2022-08-06] MEDS: Montelukast Sodium 10 MG TABLET PO (20:07)
[2022-08-06] MEDS: Aspirin Enteric Coated 81 MG TABLET.DR PO (20:07)
[2022-08-06] MEDS: Baclofen 20 MG TABLET PO (22:37)
[2022-08-07 06:02] VITALS: BP 137/88; PULSE 100; RESP 15; TEMP 36.7; O2SAT 100
--- NOTE | 2022-08-07 06:05 | PC.NURSE ---
Pt assisted to the bedside commode. Per care given. Pt assisted back into bed ,warm blankets given and call jones placed in reach.
[2022-08-07 07:13] VITALS: BP 146/75; PULSE 89; RESP 14; TEMP 36.8; O2SAT 97
[2022-08-07] MEDS: Omeprazole 20 MG CAPSULE.DR PO (07:46)
[2022-08-07] MEDS: Fluticasone Propionate 250 MCG BLST.W.DEV 1 PUFF INHALE (08:40)
[2022-08-07 08:45] VITALS: PULSE 81; RESP 20; O2SAT 94
[2022-08-07] MEDS: Metoprolol Succinate ER 25 MG TAB.ER.24H PO (09:02)
[2022-08-07] MEDS: Folic Acid 1 MG TABLET PO (09:02)
[2022-08-07] MEDS: QUEtiapine Fumarate 25 MG TABLET PO ×2 (09:03→20:22)
[2022-08-07] MEDS: Multivitamin TABLET 1 TAB PO (09:03)
[2022-08-07] MEDS: Thiamine HCL 100 MG TABLET PO (09:03)
--- NOTE | 2022-08-07 09:05 | PC.NURSE ---
patient awake/alert to person/place, pt medicated per order, vitals have been stable, c/o 2/10 abd pain, lungs in/ex wheezing throughout, will continue to monitor
--- NOTE | 2022-08-07 09:11 | PC.NURSE ---
called RT for tin
[2022-08-07] MEDS: Acetaminophen 325 MG TABLET 650 MG PO ×2 (11:22)
--- NOTE | 2022-08-07 11:22 | PC.NURSE ---
pt medicated for generalized pain with tylenol per pt request
[2022-08-07 11:44] VITALS: BP 146/61; PULSE 84; RESP 18; TEMP 36.9; O2SAT 100
[2022-08-07] MEDS: Albuterol Sulfate (0.083%) 2.5 MG/3 ML VIAL.NEB INHALE (15:53)
[2022-08-07 15:55] VITALS: PULSE 81; RESP 20; O2SAT 96
[2022-08-07] MEDS: Montelukast Sodium 10 MG TABLET PO (18:36)
[2022-08-07] MEDS: Aspirin Enteric Coated 81 MG TABLET.DR PO (18:36)
[2022-08-07] MEDS: Pravastatin Sodium 20 MG TABLET PO (18:36)
[2022-08-07 20:21] VITALS: BP 130/63; PULSE 81; RESP 17; TEMP 37.2; O2SAT 96
--- NOTE | 2022-08-07 20:23 | PC.NURSE ---
Addendum entered by Lynn Simental RN 08/08/22 02:19: 0219: Patient remains awake, she has been provided with four sandwiches and several cups of juice and various beverages. she frequently cries out requiring emotional support. she continues to use the call jones frequently and as needed. she is assisted back into bed/repositioned. Addendum entered by Lynn Simental RN 08/07/22 22:41: 2241: patient assisted to commode to urinate and back to bed. she is provided with juice and sandwich per request. Addendum entered by Lynn Simental RN 08/07/22 21:48: 2149: patient continues to press call jones extremely frequently. all needs met and verbal reassurance provided. limit setting practiced with patient. this RN and LOG SAWYER very frequently rounding to meet all patient's needs. Original Note: Care of patient assumed at 1900. She has been pushing her call jones approximately every 5 minutes, intermittently crying. On assessment, she is alert, able to state her name, birthday, location, and year appropriately (hx schizophrenia and dementia, unsure if patient owns, but is currently a&ox3). she endorses pain to all my body. vitals documented, stable. she is able to boost/reposition herself in the stretcher with assistance. call jones within reach. patient provided with juice.
[2022-08-07] MEDS: Baclofen 20 MG TABLET PO (20:27)
--- NOTE | 2022-08-08 01:39 | PC.NURSE ---
Pt was soiled with urine. Pt given pericare and pull up changed. Pt bed linen and gown changed. Pt given warm blanket and call jones placed in reach
[2022-08-08] MEDS: Acetaminophen 325 MG TABLET 650 MG PO ×2 (02:16→15:39)
--- NOTE | 2022-08-08 02:20 | PC.NURSE ---
Pt assisted to the Bedside commode. Pt cleaned with warm wipes. Pt given warm blanket a snack and call jones placed in reach
[2022-08-08 05:38] VITALS: BP 134/53; PULSE 81; RESP 16; TEMP 36.8; O2SAT 98
[2022-08-08] MEDS: Omeprazole 20 MG CAPSULE.DR PO (05:43)
--- NOTE | 2022-08-08 06:32 | PC.NURSE ---
Pt assisted to bedside commode but Pts pull up was already soiled with urine. Bed pad changed, pull up changed and Pt given Pericare.
[2022-08-08] MEDS: Fluticasone Propionate 250 MCG BLST.W.DEV 1 PUFF INHALE ×2 (08:09→19:22)
[2022-08-08] MEDS: Albuterol/Iprat 2.5/0.5MG 3 ML AMPUL.NEB INHALE (08:09)
[2022-08-08 08:11] VITALS: PULSE 88; RESP 18; O2SAT 98
[2022-08-08] MEDS: QUEtiapine Fumarate 25 MG TABLET PO ×2 (08:22→20:22)
[2022-08-08] MEDS: Metoprolol Succinate ER 25 MG TAB.ER.24H PO (08:22)
[2022-08-08] MEDS: Multivitamin TABLET 1 TAB PO (08:22)
[2022-08-08] MEDS: Thiamine HCL 100 MG TABLET PO (08:22)
[2022-08-08] MEDS: Folic Acid 1 MG TABLET PO (08:22)
--- NOTE | 2022-08-08 08:27 | PC.NURSE ---
patient a/ox 3 . pearrla . heart rate regular at 90 beat per minute . lungs diminished with wheezes , R.T at bedside for inhaler treatment . patient has non productive cough . HX of smoking both cigarettes and maijuana skin dry pink and warm . abdomen soft not tender . positive bowel sounds in all four quadrants . patient awaiting case management placement . patient aware of plan of care .
[2022-08-08 12:23] VITALS: BP 130/64; PULSE 93; RESP 16; TEMP 37.1; O2SAT 99
[2022-08-08 15:41] VITALS: BP 125/71; PULSE 81; RESP 18; TEMP 36.7; O2SAT 96
--- NOTE | 2022-08-08 15:44 | PC.NURSE ---
Patient incontinent large amount of urine . ambulated to commode and changed bed linens . medicated patient for pain level of 10 out of 10 in her back with 650 of Tylenol . patient aware of plan of care .
[2022-08-08] MEDS: Aspirin Enteric Coated 81 MG TABLET.DR PO (17:37)
[2022-08-08] MEDS: Montelukast Sodium 10 MG TABLET PO (17:37)
[2022-08-08] MEDS: Pravastatin Sodium 20 MG TABLET PO (17:37)
[2022-08-08] MEDS: Acetaminophen 325 MG TABLET 975 MG PO (22:04)
--- NOTE | 2022-08-08 22:07 | PC.NURSE ---
medicated pt per Mar.
[2022-08-08 23:48] VITALS: BP 142/67; PULSE 89; RESP 18; TEMP 36.6; O2SAT 97
[2022-08-09] MEDS: diphenhydrAMINE HCL 25 MG CAPSULE 50 MG PO (02:23)
[2022-08-09] MEDS: Omeprazole 20 MG CAPSULE.DR PO (05:47)
[2022-08-09 06:33] VITALS: BP 133/66; PULSE 88; RESP 18; TEMP 36.7; O2SAT 97
[2022-08-09] MEDS: QUEtiapine Fumarate 25 MG TABLET PO ×2 (08:02→20:03)
[2022-08-09] MEDS: Metoprolol Succinate ER 25 MG TAB.ER.24H PO (08:02)
[2022-08-09] MEDS: Thiamine HCL 100 MG TABLET PO (08:02)
[2022-08-09] MEDS: Folic Acid 1 MG TABLET PO (08:02)
[2022-08-09] MEDS: Multivitamin TABLET 1 TAB PO (08:03)
[2022-08-09] MEDS: Fluticasone Propionate 250 MCG BLST.W.DEV 1 PUFF INHALE (08:26)
[2022-08-09] MEDS: Albuterol/Iprat 2.5/0.5MG 3 ML AMPUL.NEB INHALE (08:26)
[2022-08-09 08:27] VITALS: PULSE 83; RESP 20; O2SAT 100
[2022-08-09] MEDS: Baclofen 20 MG TABLET PO (11:11)
[2022-08-09] MEDS: Acetaminophen 325 MG TABLET 650 MG PO ×2 (11:11→20:02)
--- NOTE | 2022-08-09 11:13 | PC.NURSE ---
MEDICATED FOR BACK PAIN AND GENERAL BILATERAL LE AND SHOULDER PAIN
[2022-08-09] MEDS: Ondansetron ODT 4 MG TAB.RAPDIS TRANSLINGU (14:08)
[2022-08-09 15:32] VITALS: BP 150/68; PULSE 91; RESP 14; TEMP 36.8; O2SAT 100
[2022-08-09] MEDS: Pravastatin Sodium 20 MG TABLET PO (18:19)
[2022-08-09] MEDS: Montelukast Sodium 10 MG TABLET PO (18:19)
[2022-08-09] MEDS: Aspirin Enteric Coated 81 MG TABLET.DR PO (18:19)
[2022-08-09] MEDS: Albuterol Sulfate 90 MCG 8 GM INHALER 2 PUFF INHALE (20:05)
[2022-08-09 21:30] VITALS: BP 140/64; PULSE 99; RESP 16; TEMP 36.7; O2SAT 100
--- NOTE | 2022-08-10 02:20 | PC.NURSE ---
Patient assisted to bedside commode, patient was able to make to commode on time. Patient requested turkey sandwich and orange juice to snack. Patient finished turkey sandwich and orange juice, back to bed, resting with eyes closed. RR 16. Call jones within reach.
[2022-08-10 06:02] VITALS: BP 149/70; PULSE 96; RESP 18; TEMP 36.8; O2SAT 100
[2022-08-10] MEDS: Omeprazole 20 MG CAPSULE.DR PO (06:02)
[2022-08-10 07:06] VITALS: BP 155/75; PULSE 91; RESP 20; TEMP 36.7; O2SAT 100
[2022-08-10] MEDS: Fluticasone Propionate 250 MCG BLST.W.DEV 1 PUFF INHALE ×2 (07:59→20:37)
[2022-08-10 08:00] VITALS: PULSE 88; RESP 16; O2SAT 97
--- NOTE | 2022-08-10 08:30 | PC.NURSE ---
PT calm and cooperative. PT awake sitting at edge of bed eating breakfast. Medications given as documented. No apparent distress, will continue to observe.
[2022-08-10] MEDS: Thiamine HCL 100 MG TABLET PO (08:38)
[2022-08-10] MEDS: Multivitamin TABLET 1 TAB PO (08:39)
[2022-08-10] MEDS: QUEtiapine Fumarate 25 MG TABLET PO ×2 (08:39→22:08)
[2022-08-10] MEDS: Folic Acid 1 MG TABLET PO (08:39)
[2022-08-10] MEDS: Metoprolol Succinate ER 25 MG TAB.ER.24H PO (08:39)
[2022-08-10] MEDS: Acetaminophen 325 MG TABLET 650 MG PO ×2 (08:42→22:08)
--- NOTE | 2022-08-10 11:01 | MHC.CM.ED ---
Addendum entered by Risa Lozano 08/10/22 15:44: Spoke with Juanjo, patient's HCP/sig other, via telephone at [phone]. Juanjo still aware that referral has been broadcasted throughout the entire [facility] and that placement will be permanent. Juanjo also aware patient's SSI will be given to the facility that she transfers to. Juanjo verbalized understanding and still wants to pursue LTC placement. Original Note: Patient remains in ER. No bed offers yet. Clinical updates sent via [facility]. Reached out to facilities via telephone that haven't responded in [facility]. Waiting for call backs from: [facility], [facility], [facility], and [facility]. Continue to monitor for d/c needs.
[2022-08-10 14:18] LABS: Glucose, Whole Blood 128 mg/dL (60-115)
--- NOTE | 2022-08-10 15:37 | PC.NURSE ---
PT resting quietly, stand by assist to commode. Placement still pending per case resource manager, PT remains PT case management. PT aware of plan.
[2022-08-10] MEDS: Pravastatin Sodium 20 MG TABLET PO (18:32)
[2022-08-10] MEDS: Montelukast Sodium 10 MG TABLET PO (18:32)
[2022-08-10] MEDS: Aspirin Enteric Coated 81 MG TABLET.DR PO (18:32)
--- NOTE | 2022-08-10 20:30 | MHC.CM.ED ---
Nicole KIRK tells CM that she received a telephone call from Juanjo, pt partner and invoked HCP asking if / care can be provided for pt. KAMILA has had this discussion with Juanjo in the past. CM called and spoke with Juanjo. Juanjo has concerns about pt going to LTC, as he says he has lived with her for 25 years and that her children won't care for her. Juanjo is concerned about her going far, as he will not be able to visit her. Juanjo is also concerned about her check and food stamps, as she helps to pay for half of the rent and expenses. KAMILA explained to Juanjo that when CM finds a facility that will accept her, it will be up to him, the facility and [facility] to deal with the finances. Juanjo tells CM he only has Medicare. CM explained that without the patients funds, he might qualify for [facility]. He will have to look into this. CM asked Juanjo if he could care for her and he admits that he can not. CM explained that dementia only gets worse. KAMILA also explained that when a facility is found, he will be called. KAMILA explained that [facility] will pay for some home services, but not the amount of time he needs. They do not pay for 22/04 care, they will pay for LTC. KAMILA explained to Juanjo that STR is not what pt needs. Juanjo is in agreement at this time for plan for LTC when facility is found. Nicole KIRK aware of conversation with Juanjo. CM to follow for discharge planning.
[2022-08-10 20:38] VITALS: PULSE 88; RESP 16; O2SAT 97
[2022-08-10 23:51] VITALS: BP 151/81; PULSE 84; RESP 18; TEMP 36.5; O2SAT 99
[2022-08-11] MEDS: Ibuprofen 600 MG TABLET PO (00:14)
--- NOTE | 2022-08-11 05:46 | PC.NURSE ---
pt calling out for nurse. this rn provided pt with warm blanket, new gown, and ice water per pt request. pt was reassured that breakfast would be coming soon
[2022-08-11] MEDS: Omeprazole 20 MG CAPSULE.DR PO (06:08)
--- NOTE | 2022-08-11 06:11 | PC.NURSE ---
This RN was in pt room giving AM medications. pt mentioned having diabetes. No orders for POC checks and no diabetic diet order. Medicated pt according to MAr. This RN checked POC at this time, POC 115. Will make RN aware at change of shift that POC order is not in. This RN unsure of previous plan regarding POC checks. This RN spoke with technical systems architect regarding the following. rubber flap cutter instructed this RN to complete note at this time and discuss with on coming shift.
[2022-08-11 06:14] LABS: Glucose, Whole Blood 115 mg/dL (60-115)
[2022-08-11 07:01] LABS: Glucose, Whole Blood 100 mg/dL (60-115)
[2022-08-11 07:46] VITALS: BP 133/71; PULSE 86; RESP 18; O2SAT 100
[2022-08-11] MEDS: Acetaminophen 325 MG TABLET 650 MG PO (07:52)
[2022-08-11] MEDS: Multivitamin TABLET 1 TAB PO (07:52)
[2022-08-11] MEDS: Thiamine HCL 100 MG TABLET PO (07:53)
[2022-08-11] MEDS: Folic Acid 1 MG TABLET PO (07:53)
[2022-08-11] MEDS: Metoprolol Succinate ER 25 MG TAB.ER.24H PO (07:54)
[2022-08-11] MEDS: QUEtiapine Fumarate 25 MG TABLET PO (07:54)
[2022-08-11] MEDS: Fluticasone Propionate 250 MCG BLST.W.DEV 1 PUFF INHALE (07:54)
--- NOTE | 2022-08-11 07:57 | PC.NURSE ---
pt alert and oriented x3. complaints of body aches. VS wnl. Denies SI at this time. pt complains of difficulty breading. LS expiratory whizzing bilaterally. gave her her morning meds and fluticasone
[2022-08-11] MEDS: Albuterol Sulfate 90 MCG 8 GM INHALER 2 PUFF INHALE (12:19)
--- NOTE | 2022-08-11 13:01 | MHC.CM.ED ---
Patient remains in ER. Received telephone call from Ana Lilia at [facility]. They are reviewing clinical. Patient will need a [facility] PASRR Level 2. T/W already submitted for this. Continue to monitor for d/c needs.
--- NOTE | 2022-08-11 13:47 | MHC.CM.ED ---
Received telephone call from patient's sig other/HCP, Juanjo. Juanjo wants to take patient home. He feels 24/ care can be provided. T/W spoke with Emily of [facility]. Emily spoke with Juanjo. She feels patient can safely go home if she goes to a day program Wednesday to Wednesday during the day. The curb supervisor would have to care for patient in the evening. This would provide actual care for patient. Juanjo agreeable. Emily will call patient's daughter, Karyn, to let her know. Emily will also let patient know that she will need to agree to go to the day program, otherwise she would not be able to safely stay home. [facility] booked for 430pm. Med nec with chart. Continue to monitor for d/c needs.
[2022-08-11 15:02] VITALS: BP 149/78; PULSE 85; RESP 16; TEMP 36.9; O2SAT 99
--- NOTE | 2022-08-11 20:10 | MHC.CM.ED ---
Adult protective services report filed for financial exploitation secondary to invoked HCP, Juanjo refusing needed LTC due to needing her check and Food assistance to live. Juanjo told CM this in a telephone conversation on 08/10. Pt has Evening PCS services and Adult day care with [facility], which she had in place when Juanjo sent her to the ED 8 days ago because he could not care for her. This typewriter mechanic filed as a mandated judicial reporter.
== END 2022-08-11 16:07 | disposition home or self-care (01) ==
PROVIDERS: Emergency Provider Student in an Organized Health Care Education/Training Program; PCP Internal Medicine Geriatric Medicine
DX: F03.90 Unspecified dementia, unspecified severity, without behavioral disturbance, psychotic disturbance, mood disturbance, and anxiety (principal); R06.02 Shortness of breath; R26.81 Unsteadiness on feet; R10.9 Unspecified abdominal pain; R07.89 Other chest pain; R05.9 Cough, unspecified; F17.210 Nicotine dependence, cigarettes, uncomplicated; Z20.822 Contact with and (suspected) exposure to COVID-19; Z71.6 Tobacco abuse counseling; Z79.899 Other long term (current) drug therapy
CPT/HCPCS: 0241U; 36415; 71046; 74176; 80053; 81001; 82803; 82947; 83880; 85025; 94640; 97161; 99283; 99285

== ENCOUNTER 2022-09-01 06:59 | Emergency (ER) | payer MEDICARE, MEDICAID, SELFPAY ==
--- NOTE | ~2022-09-01 | XR_ITS ---
EXAMINATION: XR CHEST CLINICAL INFORMATION: Shortness of breath. COMPARISON: 08/03/2022 chest radiographs. TECHNIQUE: 2 views of the chest were obtained. FINDINGS: No significant abnormality is noted involving the heart, lungs, mediastinum, bony thorax or soft tissues. XR/XR chest 2V IMPRESSION: No acute cardiopulmonary process.
[2022-09-01 07:10] VITALS: BP 149/76; BP 164/98; PULSE 80; PULSE 83; RESP 16; TEMP 36.6; O2SAT 100; O2SAT 97; BMI 33.6
--- OUTSIDE RECORDS SUMMARY | 2022-09-01 07:31 | XMS_ITS ---
:1955 Author Care Team Providers Name Role Phone ABDI THOMPSON 1ST FLOOR OTHER [phone] Allergies Code Code System Name Reaction Severity Status Onset Advair Diskus ? ? Active ? [id number] RxNorm Paxil ? ? Active ? Medications [...] Results Lab Results None recorded. Past Encounters Encounter Date Diagnosis Provider 07/09/2021 Asthma; Pain of Right Knee Region; Leandra Blair [employer]ANT SUPERINTENDENT: 34 [address] Bipolar Disorder; Chronic [facility], [place], [place] Obstructive Lung Disease; Cigarette [id number], Ph. Smoker; Constipation; Coronary Arteriosclerosis; Essential Hypertension; Hyperlipidemia; Mixed Anxiety and Depressive Disorder; Obstructive Sleep Apnea Syndrome; Osteoarthritis; Type 2 Diabetes Mellitus; Recurrent Falls Social History Tobacco Smoking Status Heavy Tobacco [...]
[2022-09-01 07:50] VITALS: BP 99/53; PULSE 115; RESP 14; O2SAT 98
--- NOTE | 2022-09-01 08:03 | ED_ITS ---
HPI - Asthma General Chief Complaint: Asthma Stated Complaint: Asthma Time Seen by Provider: 09/01/22 08:02 Source: patient and personal fitness manager Mode of arrival: ambulatory Limitations: language barrier History of Present Illness HPI Narrative: Patient is a 67 year old assigned female at with a history of asthma presenting to the emergency department today with shortness of breath. Patient states that the last 2 days the patient has had worsening shortness of breath because she has run out of her inhaler at home. Patient states that her left shoulder also has a new lump on it. Patient denies any dizziness, lightheadedness, abdominal pain, nausea, vomiting, fever, chills, blurry vision, double vision, loss of vision, chest pain, back pain, night sweats, pain with urination, increased urinary frequency, increased urinary urgency, blood in her urine or stool, syncope or a near syncopal episode, recent trauma or falls, bowel incontinence, bladder incontinence, bowel retention, bladder retention, or any other complaints at this time. MD complaint: shortness of breath Onset (ago): day(s) (2) Severity: mild Context: ran out of meds Associated symptoms: dry cough Asthma History: childhood onset Related Data Current Asthma Therapy: inhaled bronchodilator Home Medications Medication Instructions Recorded Confirmed albuterol sulfate 90 mcg/actuation 2 puff inhalation Q4H PRN 07/25/22 08/03/22 aerosol inhaler shortness of breath or wheezing albuterol sulfate 2.5 mg/3 mL 1 amp inhalation Q4H PRN wheezing 07/26/22 08/03/22 (0.083 %) solution for nebulization quetiapine 50 mg tablet 25 mg PO BID 07/26/22 08/03/22 Previous Rx's Medication Instructions Recorded acetaminophen 650 mg 1 tab PO BID PRN pain 30 days #60 04/29/22 tablet,extended release tabs aspirin 81 mg tablet,delayed 1 tab PO QPM 30 days #30 tabs 04/29/22 release baclofen 20 mg tablet 20 mg PO DAILY PRN Back Pain 30 04/29/22 days #30 tabs fluticasone propionate 220 1 puff PO BID #12 grams 04/29/22 mcg/actuation HFA aerosol inhaler (Flovent HFA) folic acid 1 mg tablet 1 mg PO QAM 30 days #30 tabs 04/29/22 ipratropium 0.5 mg-albuterol 3 mg 1 amp inhalation Q4H PRN Wheezing 04/29/22 (2.5 mg base)/3 mL nebulization 30 days #30 multiple units soln metoprolol succinate 25 mg 1 tab PO QAM 30 days #30 tabs 04/29/22 tablet,extended release 24 hr montelukast 10 mg tablet 1 tab PO QPM 30 days #30 tabs 04/29/22 multivitamin (Daily-Cony tablet) 1 tab PO DAILY 30 days #30 tabs 04/29/22 ondansetron 4 mg disintegrating 4 mg PO Q12H PRN Nausea 30 days 04/29/22 tablet #30 tabs pravastatin 20 mg tablet 1 tab PO QPM 30 days #30 tabs 04/29/22 sennosides 8.6 mg tablet (senna) 1 tab PO BID PRN constipation 30 04/29/22 days #60 tabs thiamine HCl (vitamin B1) 100 mg 1 tab PO QAM 30 days #30 tabs 04/29/22 tablet omeprazole 20 mg capsule,delayed 20 mg PO DAILY@0630 #30 caps 07/27/22 release albuterol sulfate 90 mcg/actuation 1 inh inhalation QID #6.7 grams 09/01/22 aerosol inhaler Allergies Allergy/AdvReac Type Severity Reaction Status Date / Time advair Allergy Unknown Unknown Uncoded 03/29/22 01:21 From PAXIL AdvReac Intermediate NAUSEA & Uncoded 03/29/22 01:21 VOMITING Review of Systems Constitutional: Constitutional: Reports no additional constitutional complaints, Denies chills, Denies fever(s) and Denies night sweats Eyes: Eyes: Reports no additional eye complaints, Denies blurry vision, Denies change in vision, Denies diplopia, Denies eye discharge, Denies loss of vision and Denies eye pain ENT: Denies dizziness Cardiovascular: Cardiovascular: Reports no additional cardiovascular co mplaints, Denies chest pain, Denies lightheadedness, Denies Loss of Consciousness and Reports dyspnea Respiratory: Respiratory: Reports no additional respiratory complaints, Reports cough, Reports dyspnea and Reports wheezing Gastrointestinal: Gastrointestinal: Reports no additional gastrointestinal complaints, Denies abdominal pain, Denies melena, Denies hematochezia, Denies change in bowel habits and Denies change in stool character Genitourinary: Genitourinary: Denies hematuria, Denies urinary frequency, Denies dysuria, Denies urinary incontinence, Denies urinary hesitancy and Denies urinary urgency Musculoskeletal: Musculoskeletal: Reports no additional musculoskeletal complaints, Denies numbness and Denies tingling Comments: left shoulder lump Neurologic: Denies dizziness, Denies loss of vision, Denies numbness and Denies tingling Psychiatric: Psychiatric: Reports no additional psychiatric complaints Endocrine: Endocrine: Reports no additional endocrine complaints Hematologic/Lymphatic: Hematologic/Lymphatic: Reports no additional hematologic/lymphatic complaints Allergic/Immunologic: Allergic/Immunologic: Reports no additional allergic/immunologic complaints and Reports wheezing PMFSH Past Medical History Attestation statement: The following information was validated with the patient. Source: old records reviewed Medical History Acute hyponatremia Acute hyponatremia Alcohol use disorder Bipolar 1 disorder Bipolar I disorder Cannabis use disorder, moderate, dependence Chronic hyponatremia Congestive heart failure COPD (chronic obstructive pulmonary disease) Coronary artery disease Dementia Diabetes Hypertension Korsakoff disease Osteoarthritis Schizophrenia Shortness of breath Sleep apnea Surgical History Hx of appendectomy Social History Social History Household Members: Spouse Housing: Apartment Do you presently have visiting nurse or other home services: Yes Unable to assess alcohol history related to: Unknown Alcohol intake: former Patient Tobacco Use Status: Former Tobacco user Tobacco use type: Cigarette Cigarettes Per Day: 6 Years Smoked: 53 Smoked in Last 30 Days: Yes e-Cigarette/Vaping Use: Never Used Second Hand Smoke Exposure: Yes Use of substances other than those prescribed or required for medical reasons: No Substance Use Type: Marijuana Advance Directives: Yes Advance Directives on File: Yes Advance Directives Date on File: 10/10/20 service: No Current occupational status: unemployed, disabled and other Sexual orientation: Straight/Heterosexual Physical Exam Vital Signs: Vital Signs: Last Vital Signs Temp 97.9 F 09/01/22 07:10 Pulse 106 H 09/01/22 09:54 Resp 18 09/01/22 09:54 BP 127/56 L 09/01/22 09:54 Pulse Ox 95 09/01/22 09:54 O2 Del Method 09/01/22 09:54 BMI result Body Mass Index 33.6 Const: General: cooperative, no acute distress, alert and awake Nutritional Appearance: well nourished Orientation/consciousness: patient oriented x3 Limitations: no limitations HEENT: Head: Yes normal to inspection and Yes atraumatic Ears: hearing grossly normal bilaterally and external ears normal General nose exam: Normal external nose present, no nasal discharge noted and no epistaxis Face and sinus: Yes normal facial exam, No abrasion and No laceration Mouth: Normal oral and palatal mucosa present, no drooling and no muffled voice Eyes: General: appearance normal, both eyes and all related structures Periorbital: periorbital findings normal Eyelids: Yes eyelids normal Conj unctivae: conjunctivae normal Pupils: Equal, round and reactive pupils present EOM: EOMs intact bilaterally Neck: Neck: Yes normal visual inspection, Yes full ROM and Yes no lymphadenopathy Chest: Chest palpation & inspection: normal inspection of the chest Resp: Effort & Inspection: normal respiratory effort and able to speak in complete sentences Auscultation: wheezes throughout Cardio: Rate: regular rate Rhythm: regular rhythm GI: Inspection: Yes normal to inspection Neuro: General: patient oriented x3 and moves all extremities Cranial nerves: Yes Equal, round and reactive pupils present Cognition (Neuro): normal cognition Motor exam (neuro): 5/5 motor strength present throughout Sensory Exam: Normal double simultaneous stimulation for sensation Coordination: [id number] test normal Extrem: Other: swollen area to the left anterior shoulder with lipoma consistency General: Yes full ROM and Yes capillary refill normal Psych: Appearance: grossly normal Mental Status: mental status grossly normal Affect: normal affect Attitude: cooperative Thought process: Normal thought process present Thought content: Normal thought content present Insight: Good insight present (Psych) Medications Administered Discontinued Medications Generic Name Dose Route Start Last Admin Trade Name Freq PRN Reason Stop Dose Admin Albuterol Sulfate 7.5 mg/ 0 mg 09/01/22 08:11 09/01/22 09:17 Albuterol/Ipratropium 3 ml INHALE 09/01/22 08:12 7.5 each ONCE ONE Administration Methylprednisolone Sodium Succinate 60 mg 09/01/22 08:11 09/01/22 09:39 Methylprednisolone Sod Succ 125 Mg/2 Ml Vial IM 09/01/22 08:12 60 mg ONCE ONE Administration Sodium Polystyrene Sulfonate 30 gm 09/01/22 09:38 12/06/22 10:24 Sodium Polystyrene Sulfon/Sorb 15 Gm/60 Ml Oral.Susp PO 09/01/22 09:39 30 gm ONCE ONE Administration Medical Decision Making Medical Decision Making [place] Narrative: Patient is a 67 year old assigned female at with a history of asthma presenting to the emergency department today with wheezing and a left shoulder lump. Patient's physical exam showed diffuse wheezes and left shoulder swelling with consistency of a lipoma, no warmth, no swelling, no erythema. Patient's blood work showed an elevated potassium of 5.5. Patient's EKG was unremarkable. Patient's chest x-ray showed no acute process. I explained my physical exam findings as well as all test results to the patient. I answered all questions asked by the patient. Patient received a duoneb which she stated helped her symptoms significantly. I stressed the importance of the patient taking her medication as prescribed. I stressed the importance of the patient following up with her primary care provider. I stressed the importance of the patient returning to the emergency department immediately if her symptoms were to worsen or if she were to develop any dizziness, shortness of breath, difficulty breathing, chest pain, blurry vision, loss of vision, nausea, vomiting, abdominal pain, fever, chills, back pain, or any other complaints. Patient verbalized agreement and understanding with this treatment plan and discharge. Differential Diagnoses: Differential diagnosis (asthma exacerbation, hyperkalemia) Differential Diagnosis: The differential diagnosis associated with the patient?s presentation includes: Independent interpretation of EKG, rhythm strip, radiology study: Independent interp EKG,rhythm strip, radiology study I performed an independent interpretation of the: EKG Vent. Rate: 100 BPM ? ? Atrial Rate: 100 BPM P-R Int: 128 ms? ? ? QRS Dur: 090 ms QT Int: 328 ms ? ? ? P-R-T Axes: 068 005 063 degrees QTc Int: 423 ms ? Normal sinus rhythm Normal ECG When compared with ECG of 25-JUL-2022 15:50, Premature atrial complexes are no longer Present T wave inversion less evident in Anterior leads DD/ 1003 Discussion of test interpretation with radiology: Discussion of test interpretation with radiology This result was not discussed with the radiologist directly - though this is their report of the study. EXAMINATION: XR CHEST CLINICAL INFORMATION: Shortness of breath. COMPARISON: 08/03/2022 chest radiographs. TECHNIQUE: 2 views of the chest were obtained. FINDINGS: No significant abnormality is noted involving the heart, lungs, mediastinum, bony thorax or soft tissues. XR/XR chest 2V IMPRESSION: No acute cardiopulmonary process. Dictated By: Maurizio Simon MD Signed By: Electronically signed by Maurizio Simon MD 09/01/22 [id number] Discharge Plan Discharge Clinical Impression: Asthma, Lipoma Patient Disposition: Home, Self-Care Instructions: Asthma (ED), Lipoma (ED) Additional Instructions: Eat low potassium containing foods. Follow up with your primary care provider. Return to the emergency department immediately if your symptoms worsen or if you develop any dizziness, shortness of breath, difficulty breathing, chest pain, blurry vision, loss of vision, nausea, vomiting, abdominal pain, fever, chills, back pain, or any other complaints. Coma alimentos bajos en potasio. Dong un seguimiento con goldberg proveedor de atenci?n primaria. Regrese al departamento de emergencias de inmediato si trinh s?ntomas empeoran o si presenta mareos, falta de aire, dificultad para respirar, dolor de pecho, visi?n borrosa, p?rdida de la visi?n, n?useas, v?mitos, dolor abdominal, fiebre, escalofr?os, dolor de espalda o cualquier otras quejas. Prescriptions: New albuterol sulfate 90 mcg/actuation HFA aerosol inhaler 1 inh inhalation QID Qty: 6.7 0RF No Action albuterol sulfate 90 mcg/actuation HFA aerosol inhaler 2 puff inhalation Q4H PRN (Reason: shortness of breath or wheezing) albuterol sulfate 2.5 mg /3 mL (0.083 %) solution for nebulization 1 amp inhalation Q4H PRN (Reason: wheezing) quetiapine 50 mg tablet 25 mg PO BID omeprazole 20 mg Capsule,Delayed Release(Dr/Ec) 20 mg PO DAILY@0630 Qty: 30 0RF multivitamin [Daily-Cony] Tablet 1 tab PO DAILY 30 Days Qty: 30 0RF sennosides [senna] 8.6 mg tablet 1 tab PO BID PRN (Reason: constipation) 30 Days Qty: 60 0RF ipratropium-albuterol 0.5 mg-3 mg(2.5 mg base)/3 mL solution for nebulization 1 amp inhalation Q4H PRN (Reason: Wheezing) 30 Days Qty: 30 0RF thiamine HCl (vitamin B1) 100 mg tablet 1 tab PO QAM 30 Days Qty: 30 0RF aspirin 81 mg tablet,delayed release (DR/EC) 1 tab PO QPM 30 Days Qty: 30 0RF acetaminophen 650 mg tablet extended release 1 tab PO BID PRN (Reason: pain) 30 Days Qty: 60 0RF baclofen 20 mg Tablet 20 mg PO DAILY PRN (Reason: Back Pain) 30 Days Qty: 30 0RF folic acid 1 mg tablet 1 mg PO QAM 30 Days Qty: 30 0RF montelukast 10 mg tablet 1 tab PO QPM 30 Days Qty: 30 0RF fluticasone propionate [Flovent HFA] 220 mcg/actuation HFA aerosol inhaler 1 puff PO BID Qty: 12 0RF pravastatin 20 mg tablet 1 tab PO QPM 30 Days Qty: 30 0RF metoprolol succinate 25 mg tablet extended release 24 hr 1 tab PO QAM 30 Days Qty: 30 0RF ondansetron 4 mg Tablet,Disintegrating 4 mg PO Q12H PRN (Reason: Nausea) 30 Days Qty: 30 0RF Referrals: Name,MD Ryder [Primary Care Provider] - Print Language: Vincentian
[2022-09-01 09:14] LABS: MANUAL DIFF FLAG NO
[2022-09-01 09:17] LABS: Basophils Percent Auto 0.1 % (0-2); Hematocrit 26.1 % (37.0-47.0); Hemoglobin 8.3 g/dl (12.0-16.0); Imm Gran Abs Auto 0.06 X10*3/uL (0.00-0.03); Imm Gran Pct Auto 0.6 % (0.0-0.4); Lymphocytes Absolute Auto 1.9 X10*3/uL (1.2-4.9); Lymphocytes Percent Auto 19.9 % (20-40); Mean Corpuscular HGB Conc 31.8 g/dl (31.0-35.0); Mean Corpuscular Hemoglobin 25.5 pg (27.0-33.0); Mean Corpuscular Volume 80.3 fL (80.0-98.0); Mean Platelet Volume 8.2 fL (9.4-12.3); Monocytes Percent Auto 10.6 % (2-11); Neutrophils Absolute Auto 6.5 x10*3/uL (2.0-8.3); Neutrophils Percent Auto 68.8 % (45-73); Platelet Count 360 X10*3/uL (160-400); Red Blood Count 3.25 X10*6/uL (4.20-5.50); Red Cell Distribution Width 17.3 % (11.0-16.0); White Blood Count 9.5 X10*3/uL (4.8-10.8)
[2022-09-01] MEDS: Albuterol Sulfate 7.5 MG, Albuterol/Iprat 2.5/0.5MG 3 ML 3 ML INHALE (09:17)
[2022-09-01 09:18] VITALS: PULSE 96; RESP 17; O2SAT 96
[2022-09-01 09:34] LABS: Alanine Aminotransferase 7 U/L (0-31); Albumin Level 3.6 g/dL (3.5-5.0); Alkaline Phosphatase 99 U/L (39-117); Anion Gap 14 (12-20); Aspartate Amino Transferase 12 U/L (5-31); Bilirubin Total 0.2 mg/dL (0.0-1.0); Blood Urea Nitrogen 51 mg/dL (9-16); Calcium 8.9 mg/dL (8.4-10.2); Carbon Dioxide 29 mmol/L (22-29); Chloride 103 mmol/L (96-108); Creatinine Clr Calc Pharmacy 51.6; Estimated Glomerular Filt Rate 51; Glucose Random 97 mg/dL (60-115); Potassium 5.5 mmol/L (3.3-5.1); Sodium 140 mmol/L (135-145); Total Protein 6.4 g/dL (6.5-8.0)
[2022-09-01] MEDS: methylPREDNISolone Sod Succ 125 MG/2 ML VIAL 60 MG IM (09:39)
[2022-09-01 09:54] VITALS: BP 127/56; PULSE 106; RESP 18; O2SAT 95
--- NOTE | 2022-09-01 09:58 | ECG_ITS ---
Test Reason : diff breathing Blood Pressure : / mmHG Vent. Rate : 100 BPM Atrial Rate : 100 BPM P-R Int : 128 ms QRS Dur : 090 ms QT Int : 328 ms P-R-T Axes : 068 005 063 degrees QTc Int : 423 ms Normal sinus rhythm Normal ECG When compared with ECG of 25-JUL-2022 15:50, Premature atrial complexes are no longer Present T wave inversion less evident in Anterior leads Referred By: Sonia Dan Electronically Signed By:CAMPOS KELLER MD
[2022-09-01 10:03] LABS: Magnesium 2.3 mg/dL (1.6-2.6)
[2022-09-01] MEDS: Sodium Polystyrene Sulfon/Sorb 15 GM/60 ML ORAL.SUSP 30 GM PO (10:24)
== END 2022-09-01 13:46 | disposition home or self-care (01) ==
PROVIDERS: Physician Assistant Medical; Emergency Provider Emergency Medicine; PCP Internal Medicine Geriatric Medicine
DX: R06.02 Shortness of breath (principal); R05.9 Cough, unspecified; D17.22 Benign lipomatous neoplasm of skin and subcutaneous tissue of left arm; F17.210 Nicotine dependence, cigarettes, uncomplicated; Z71.6 Tobacco abuse counseling; Z79.899 Other long term (current) drug therapy
CPT/HCPCS: 36415; 71046; 80053; 83735; 85025; 93005; 94640; 96372; 99284; 99285; J2930

== ENCOUNTER 2022-09-05 08:34 | Emergency (ER) | payer MEDICARE, MEDICAID, SELFPAY ==
[2022-09-05] VITALS (8 sets, daily range): BP systolic 136–168; BP diastolic 60–87; PULSE 59–97; RESP 12–20; TEMP 36.3–37.2; O2SAT 93–100; BMI 26.5
--- NOTE | ~2022-09-05 | XR_ITS ---
EXAMINATION: XR CHEST CLINICAL INFORMATION: Shortness of breath. COMPARISON: 09/01/2022 chest radiographs. TECHNIQUE: Frontal view of the chest was obtained. FINDINGS: No significant abnormality is noted involving the heart, lungs, mediastinum, bony thorax or soft tissues. Degenerative changes in the glenohumeral joints bilaterally without significant change. XR/XR chest 1V IMPRESSION: No acute cardiopulmonary process.
--- NOTE | ~2022-09-05 | XR_ITS ---
EXAMINATION: XR SHOULDER, LEFT CLINICAL INFORMATION: Left shoulder pain, palpable lump. COMPARISON: Chest radiographs from today, right shoulder radiographs dated 06/01/2021. TECHNIQUE: AP external rotation, Grashey, scapular Y, and axillary views of the left shoulder. FINDINGS: Moderate to severe left glenohumeral degenerative joint changes are seen. There is no acute fracture or dislocation of the left acromioclavicular joint is unremarkable. The visualized left ribs are intact. Mild subdeltoid soft tissue fullness. XR/XR shoulder LT min 2V IMPRESSION: 1. Moderate to severe left glenohumeral degenerative joint changes. No acute fracture. 2. Mild subdeltoid soft tissue fullness is nonspecific. Mild subdeltoid bursal enlargement cannot be excluded.
--- OUTSIDE RECORDS SUMMARY | 2022-09-05 09:03 | XMS_ITS ---
:1955 Author Care Team Providers Name Role Phone ABDI THOMPSON 1ST FLOOR OTHER [phone] Allergies Code Code System Name Reaction Severity Status Onset Advair Diskus ? ? Active ? 950810 RxNorm Paxil ? ? Active ? Medications [...] Pain of Right Knee Region; Leandra Blair COPY HOLDER: 34 Lower Bipolar Disorder; Chronic [facility], [place], [place] Obstructive Lung Disease; Cigarette [phone], [...]
--- NOTE | 2022-09-05 09:04 | ECG_ITS ---
Test Reason : SOB Blood Pressure : / mmHG Vent. Rate : 088 BPM Atrial Rate : 088 BPM P-R Int : 128 ms QRS Dur : 082 ms QT Int : 368 ms P-R-T Axes : 045 -06 053 degrees QTc Int : 445 ms Sinus rhythm with Premature atrial complexes Otherwise normal ECG When compared with ECG of 01-SEP-2022 10:03, Premature atrial complexes are now Present Referred By: Eri Johnson Electronically Signed By:CAMPOS KELLER MD
--- NOTE | 2022-09-05 09:23 | ED_ITS ---
HPI - Extremity Problem General Chief complaint: Extremity Injury, Upper Stated complaint: l shoulder pain Time Seen by Provider: 09/05/22 08:47 Source: patient Mode of arrival: ambulatory History of Present Illness HPI Narrative: 67-year-old female with past medical history of bipolar, ETOH use disorder, chronic hyponatremia, CHF, COPD, dementia, diabetes, HTN, osteoarthritis, schizophrenia, presenting to the ED complaining of painful lump to left shoulder x a few days, and acute on chronic SOB. Patient was seen in our ED on 09/01 for similar symptoms diagnosed with asthma exacerbation/lipoma. Denies known injury, trauma, fall, fever, CP, abdominal pain, weakness MD Complaint: extremity pain Onset (ago): day(s) Related Data Home Medications Medication Instructions Recorded Confirmed albuterol sulfate 90 mcg/actuation 2 puff inhalation Q4H PRN 07/25/22 08/03/22 aerosol inhaler shortness of breath or wheezing albuterol sulfate 2.5 mg/3 mL 1 amp inhalation Q4H PRN wheezing 07/26/22 08/03/22 (0.083 %) solution for nebulization quetiapine 50 mg tablet 25 mg PO BID 07/26/22 08/03/22 Previous Rx's Medication Instructions Recorded acetaminophen 650 mg 1 tab PO BID PRN pain 30 days #60 04/29/22 tablet,extended release tabs aspirin 81 mg tablet,delayed 1 tab PO QPM 30 days #30 tabs 04/29/22 release baclofen 20 mg tablet 20 mg PO DAILY PRN Back Pain 30 04/29/22 days #30 tabs fluticasone propionate 220 1 puff PO BID #12 grams 04/29/22 mcg/actuation HFA aerosol inhaler (Flovent HFA) folic acid 1 mg tablet 1 mg PO QAM 30 days #30 tabs 04/29/22 ipratropium 0.5 mg-albuterol 3 mg 1 amp inhalation Q4H PRN Wheezing 04/29/22 (2.5 mg base)/3 mL nebulization 30 days #30 multiple units soln metoprolol succinate 25 mg 1 tab PO QAM 30 days #30 tabs 04/29/22 tablet,extended release 24 hr montelukast 10 mg tablet 1 tab PO QPM 30 days #30 tabs 04/29/22 multivitamin (Daily-Cony tablet) 1 tab PO DAILY 30 days #30 tabs 04/29/22 ondansetron 4 mg disintegrating 4 mg PO Q12H PRN Nausea 30 days 04/29/22 tablet #30 tabs pravastatin 20 mg tablet 1 tab PO QPM 30 days #30 tabs 04/29/22 sennosides 8.6 mg tablet (senna) 1 tab PO BID PRN constipation 30 04/29/22 days #60 tabs thiamine HCl (vitamin B1) 100 mg 1 tab PO QAM 30 days #30 tabs 04/29/22 tablet omeprazole 20 mg capsule,delayed 20 mg PO DAILY@0630 #30 caps 07/27/22 release albuterol sulfate 90 mcg/actuation 1 inh inhalation QID #6.7 grams 09/01/22 aerosol inhaler lidocaine 5 % topical patch 1 patch topical DAILY PRN pain #30 09/05/22 (Lidoderm) ea prednisone 20 mg tablet 40 mg PO DAILY 5 days #10 tabs 09/05/22 Allergies Allergy/AdvReac Type Severity Reaction Status Date / Time advair Allergy Unknown Unknown Uncoded 03/29/22 01:21 From PAXIL AdvReac Intermediate NAUSEA & Uncoded 03/29/22 01:21 VOMITING Review of Systems Review of Systems: Constitutional: No Fever, No Chills, No Fatigue, No Malaise ENT/Mouth: No Ear Pain, No Nasal Congestion, No sore throat, No Rhinorrhea, No Swallowing Difficulty Eyes: No Eye Pain, No Swelling, No Redness Cardiovascular: No Chest Pain, + SOB, No Dyspnea on Exertion, No Orthopnea, No Edema, No Palpitations Respiratory: + Cough, No Sputum, No Dyspnea Gastrointestinal: No Nausea, No Vomiting, No Diarrhea, No Constipation, No Abdominal pain Genitourinary: No Dysuria, No Urinary Frequency, No Hematuria, No Flank Pain, Musculoskeletal: + joint pain, No Myalgias, + Joint Swelling Skin: No Skin Lesions, No rash Neuro: No Weakness, No Numbness, No Dizziness, No Headache Yes all other systems are reviewed and are negative Constitutional: Constitutional: Reports as per [facility] Past Medical History Attestation statement: The following information was validated with the patient. Source: old records reviewed and nursing notes reviewed Medical History Acute hyponatremia Acute hyponatremia Alcohol use disorder Bipolar 1 disorder Bipolar I disorder Cannabis use disorder, moderate, dependence Chronic hyponatremia Congestive heart failure COPD (chronic obstructive pulmonary disease) Coronary artery disease Dementia Diabetes Hypertension Korsakoff disease Osteoarthritis Schizophrenia Shortness of breath Sleep apnea Surgical History Hx of appendectomy Social History Social History Household Members: Spouse Housing: Apartment Do you presently have visiting nurse or other home services: Yes Unable to assess alcohol history related to: Unknown Alcohol intake: former Patient Tobacco Use Status: Former Tobacco user Tobacco use type: Cigarette Cigarettes Per Day: 6 Years Smoked: 53 Smoked in Last 30 Days: Yes e-Cigarette/Vaping Use: Never Used Second Hand Smoke Exposure: Yes Use of substances other than those prescribed or required for medical reasons: No Substance Use Type: Marijuana Advance Directives: Yes Advance Directives on File: Yes Advance Directives Date on File: 10/10/20 service: No Current occupational status: unemployed, disabled and other Sexual orientation: Straight/Heterosexual Physical Exam Vital Signs: Vital Signs: Last Vital Signs Temp 97.9 F 09/05/22 16:52 Pulse 77 09/05/22 16:52 Resp 15 09/05/22 16:52 BP 148/80 H 09/05/22 16:52 Pulse Ox 93 09/05/22 16:52 O2 Del Method 09/05/22 16:52 BMI result Body Mass Index 26.5 Const: General: cooperative, healthy appearing and no acute distress Orientation/consciousness: patient oriented x3 Limitations: no limitations HEENT: Head: Yes normal to inspection and Yes atraumatic Ears: hearing grossly normal bilaterally General nose exam: Normal external nose present Face and sinus: Yes normal facial exam Eyes: General: appearance normal, both eyes and all related structures EOM: EOMs intact bilaterally Neck: Neck: Yes normal visual inspection and Yes no meningeal signs Resp: Effort & Inspection: normal respiratory effort and no respiratory distress Auscultation: clear to auscultation bilaterally and wheezes expiratory wheezes and throughout Cardio: Rate: regular rate Heart sounds: S1 normal heart sound present and S2 normal heart sound present GI: Inspection: Yes normal to inspection Palpation (GI): Soft to palpation, nontender, no guarding and not rigid Skin: Rashes: no rashes Wounds: no wounds Neuro: General: patient oriented x3, tone normal and no meningeal signs Gait exam (Neuro): Normal gait present Extrem: Other: + notable left shoulder swelling and tenderness to palpation. Decreased ROM secondary to pain. Neurovascular intact distally. No erythema/warmth Course Course Course Narrative: XR chest 1V IMPRESSION: No acute cardiopulmonary process. XR shoulder LT min 2V IMPRESSION: 1.? Moderate to severe left glenohumeral degenerative joint changes. No acute fracture. 2.? Mild subdeltoid soft tissue fullness is nonspecific. Mild subdeltoid bursal enlargement cannot be excluded. ? > low suspicion for septic bursitis -1045--on re-evaluation patient is so diffuse expiatory wheeze. Additional DuoNeb, IV Solu-Medrol, and IV magnesium ordered -1119--no leukocytosis. H&H stable. Troponin 6.4 > will obtain 3hr repeat. CRP minimally elevated to 1.8. ESR elevated to 58. BNP 218 -repeat troponin without rise >> on re-evaluation lungs CTA. Discussed PT/case management with patient however she is not agreeable, would like to return home with her . Admits has a [employer] 7 days a week Results discussed with patient including worrisome signs and symptoms and strict return precautions, and when to return to the emergency department. They verbalized understanding and feel safe for discharge at this time. Medications Administered Discontinued Medications Generic Name Dose Route Start Last Admin Trade Name Freq PRN Reason Stop Dose Admin Albuterol Sulfate 2.5 mg/ 5 mg 09/05/22 10:43 09/05/22 11:31 Albuterol Sulfate 2.5 mg INHALE 09/05/22 10:44 5 mg ONCE ONE Administration Albuterol/Ipratropium 3 ml 09/05/22 09:05 09/05/22 11:32 Albuterol/Iprat 2.5/0.5mg 3 Ml Ampul.Neb INHALE 09/05/22 09:06 3 ml ONCE ONE Administration Albuterol/Ipratropium 3 ml 09/05/22 10:42 09/05/22 13:41 Albuterol/Iprat 2.5/0.5mg 3 Ml Ampul.Neb INHALE 09/05/22 10:43 3 ml ONCE ONE Administration Magnesium Sulfate 2 gm in 50 mls @ 25 mls/hr 09/05/22 10:43 09/05/22 13:19 Magnesium Sulfate/H2o IV 09/05/22 12:42 Infused ONCE ONE Infusion Methylprednisolone Sodium Succinate 125 mg 09/05/22 10:43 09/05/22 11:28 Methylprednisolone Sod Succ 125 Mg/2 Ml Vial IVPUSH 09/05/22 10:44 125 mg ONCE ONE Administration Medical Decision Making Medical Decision Making MDM Narrative: 67-year-old female with past medical history of bipolar, ETOH use disorder, chronic hyponatremia, CHF, COPD, dementia, diabetes, HTN, osteoarthritis, schizophrenia, presenting to the ED complaining of painful lump to left shoulder x a few days, and acute on chronic SOB. On exam VSS, NAD, well appearing, PE as above with notable L shoulder swelling and diffuse exp wheeze. No pedal edema. Concern for Differential Diagnoses: Differential diagnosis (as above) Lab Attestation: I reviewed the patient's lab results. Independent interpretation of EKG, rhythm strip, radiology study: Independent interp EKG,rhythm strip, radiology study I performed an independent interpretation of the: EKG My interpretation is normal sinus rhythm with premature atrial complexes the rate is 88. QTC 444. No STEMI. Independent historian (e.g., spouse, EMS, friend): Independent historian (e.g., spouse, EMS, friend) Clinical information obtained from an independent historian. History obtained from or confirmed by: EMS Non-ED record review: Review of External (Non-ED) Record External record reviewed:: Inpatient record, Office record, Outpatient record, Prior outpatient labs and Prior outpatient radiology Discharge Plan Discharge Clinical Impression: COPD exacerbation, Bursitis Patient Disposition: Home, Self-Care Instructions: Shoulder Bursitis (ED), COPD (Chronic Obstructive Pulmonary Disease) (ED) Additional Instructions: Your having a COPD exacerbation. Continue to use your neb machine/inhalers in take prednisone as prescribed Your x-ray shows degenerative disc disease of her shoulder and likely bursitis. Take anti-inflammatories like Motrin. Apply Lidoderm patches to painful area. Please follow-up with orthopedics If symptoms persist or worsen, area begins look infected, is red, is warm, you have chest pain or shortness of breath, swelling in her legs return to the emergency department Phillips tener david exacerbaci?n de la EPOC. Contin?e usando phillips m?quina neb/inhaladores y tome la prednisona seg?n lo recetado. Phillips radiograf?a muestra enfermedad degenerativa del disco de phillips hombro y probable bursitis. Josee antiinflamatorios serge Motrin. Aplique parches de Lidoderm en el ?lance dolorida. Por favor, seguimiento con ortopedia. Si los s?ntomas persisten o empeoran, el ?lance comienza a lucir infectada, est? gaudencio, est? caliente, tiene dolor en el pecho o dificultad para respirar, hinchaz?n en las piernas, regrese al departamento de emergencias. Prescriptions: New prednisone 20 mg tablet 40 mg PO DAILY 5 Days Qty: 10 0RF lidocaine [Lidoderm] 5 % adhesive patch,medicated 1 patch topical DAILY MDD remove after 12 hours PRN (Reason: pain) Qty: 30 0RF Rx Instructions: leave on most painful area for up to 12 hrs No Action albuterol sulfate 90 mcg/actuation HFA aerosol inhaler 2 puff inhalation Q4H PRN (Reason: shortness of breath or wheezing) albuterol sulfate 2.5 mg /3 mL (0.083 %) solution for nebulization 1 amp inhalation Q4H PRN (Reason: wheezing) quetiapine 50 mg tablet 25 mg PO BID omeprazole 20 mg Capsule,Delayed Release(Dr/Ec) 20 mg PO DAILY@0630 Qty: 30 0RF multivitamin [Daily-Cony] Tablet 1 tab PO DAILY 30 Days Qty: 30 0RF sennosides [senna] 8.6 mg tablet 1 tab PO BID PRN (Reason: constipation) 30 Days Qty: 60 0RF ipratropium-albuterol 0.5 mg-3 mg(2.5 mg base)/3 mL solution for nebulization 1 amp inhalation Q4H PRN (Reason: Wheezing) 30 Days Qty: 30 0RF thiamine HCl (vitamin B1) 100 mg tablet 1 tab PO QAM 30 Days Qty: 30 0RF aspirin 81 mg tablet,delayed release (DR/EC) 1 tab PO QPM 30 Days Qty: 30 0RF acetaminophen 650 mg tablet extended release 1 tab PO BID PRN (Reason: pain) 30 Days Qty: 60 0RF baclofen 20 mg Tablet 20 mg PO DAILY PRN (Reason: Back Pain) 30 Days Qty: 30 0RF folic acid 1 mg tablet 1 mg PO QAM 30 Days Qty: 30 0RF montelukast 10 mg tablet 1 tab PO QPM 30 Days Qty: 30 0RF fluticasone propionate [Flovent HFA] 220 mcg/actuation HFA aerosol inhaler 1 puff PO BID Qty: 12 0RF pravastatin 20 mg tablet 1 tab PO QPM 30 Days Qty: 30 0RF metoprolol succinate 25 mg tablet extended release 24 hr 1 tab PO QAM 30 Days Qty: 30 0RF ondansetron 4 mg Tablet,Disintegrating 4 mg PO Q12H PRN (Reason: Nausea) 30 Days Qty: 30 0RF albuterol sulfate 90 mcg/actuation HFA aerosol inhaler 1 inh inhalation QID Qty: 6.7 0RF Referrals: Name,MD Ryder [Primary Care Provider] - 3 days Print Language: Ukrainian
[2022-09-05 10:35] LABS: MANUAL DIFF FLAG NO
[2022-09-05 10:52] LABS: Basophils Percent Auto 0.3 % (0-2); Eosinophils Absolute Auto 0.1 X10*3/uL (0.0-0.4); Eosinophils Percent Auto 0.8 % (0-4); Hemoglobin 9.3 g/dl (12.0-16.0); Imm Gran Abs Auto 0.08 X10*3/uL (0.00-0.03); Lymphocytes Absolute Auto 2.1 X10*3/uL (1.2-4.9); Lymphocytes Percent Auto 27.5 % (20-40); Mean Corpuscular HGB Conc 32.1 g/dl (31.0-35.0); Mean Corpuscular Hemoglobin 25.5 pg (27.0-33.0); Mean Corpuscular Volume 79.7 fL (80.0-98.0); Mean Platelet Volume 8.5 fL (9.4-12.3); Monocytes Absolute Auto 0.8 X10*3/uL (0.1-1.2); Monocytes Percent Auto 10.3 % (2-11); Neutrophils Absolute Auto 4.7 x10*3/uL (2.0-8.3); Neutrophils Percent Auto 60.1 % (45-73); Platelet Count 384 X10*3/uL (160-400); Red Blood Count 3.64 X10*6/uL (4.20-5.50); Red Cell Distribution Width 17.4 % (11.0-16.0); White Blood Count 7.8 X10*3/uL (4.8-10.8)
[2022-09-05 10:56] LABS: Alanine Aminotransferase 11 U/L (0-31); Albumin Level 3.5 g/dL (3.5-5.0); Alkaline Phosphatase 104 U/L (39-117); Anion Gap 13 (12-20); Aspartate Amino Transferase 11 U/L (5-31); Bilirubin Direct 0.2 mg/dL (0.0-0.5); Bilirubin Total 0.4 mg/dL (0.0-1.0); Blood Urea Nitrogen 31 mg/dL (9-16); C Reactive Protein 1.84 mg/dL (< or = 0.50); Calcium 8.9 mg/dL (8.4-10.2); Carbon Dioxide 28 mmol/L (22-29); Chloride 103 mmol/L (96-108); Creatinine Clr Calc Pharmacy 51.7; Estimated Glomerular Filt Rate 58; Glucose Random 105 mg/dL (60-115); Magnesium 2.3 mg/dL (1.6-2.6); Potassium 4.8 mmol/L (3.3-5.1); Sodium 139 mmol/L (135-145); Total Protein 6.2 g/dL (6.5-8.0)
[2022-09-05 10:57] LABS: B Type Natriuretic Peptide 218 pg/mL (<100)
[2022-09-05 10:59] LABS: Troponin-I High Sensitivity 6.4 ng/L (<3.5-17.0)
[2022-09-05 11:16] LABS: Influenza A PCR NEGATIVE (Negative); Influenza B PCR NEGATIVE (Negative); Resp Syncy Virus RNA Qual PCR NEGATIVE (Negative); SARS COV2 PCR INHOUSE NEGATIVE (Negative)
[2022-09-05] MEDS: methylPREDNISolone Sod Succ 125 MG/2 ML VIAL IVPUSH (11:28)
[2022-09-05] MEDS: Albuterol Sulfate 2.5 MG, Albuterol Sulfate (0.083%) 2.5 MG 5 MG INHALE (11:31)
[2022-09-05] MEDS: Magnesium Sulfate/H2O 2 GM/50 ML PIGGYBACK IV (11:31)
[2022-09-05] MEDS: Albuterol/Iprat 2.5/0.5MG 3 ML AMPUL.NEB INHALE ×2 (11:32→13:41)
[2022-09-05 11:38] LABS: Erythrocyte Sedimentation Rate 58 MM/HR (0-20)
--- NOTE | 2022-09-05 15:22 | PC.NURSE ---
call to pts significant other - samantha - he reports he is unable to come pick up and delivery driver the pt reports they have no one else to get her. per pt - she usually gets an ambulance home.
--- NOTE | 2022-09-05 15:52 | MHC.EDTECH ---
pt will be going back home via ambulance per rn and discharge. Pt will go out with erendira at 7pm per erendira
--- NOTE | 2022-09-05 17:51 | MHC.EDTECH ---
pt was incontinent of urine ,bed bath given ,bedding change ,pt was given pbj sandwich and diet lashawn logan for snack .
--- NOTE | 2022-09-05 19:14 | PC.NURSE ---
report received from REAGAN Voss pt is alert and oriented resting in bed no signs of acute distress notice waiting for ambulance to arrived
--- NOTE | 2022-09-05 19:58 | MHC.EDTECH ---
pt was wet at this time ,care given and bedding change ,had pudding and lashawn logan for snack
--- NOTE | 2022-09-05 20:38 | MHC.EDTECH ---
Driss called at 2037 for an update on a ambulance that was booked prior to my shift,they stated they had no knowledge of this transport,booked now ETA 30mins.RN aware
--- NOTE | 2022-09-05 20:45 | MHC.EDTECH ---
pt clau jones said she was hungry ,was given ham sandwich and gingerale .
--- NOTE | 2022-09-05 20:57 | MHC.EDTECH ---
pt was wet before leaving ,care given and linen change .
--- NOTE | 2022-09-05 21:00 | PC.NURSE ---
Discharge instructions given and explained to pt. No respiratory distress and pt and speaking in full sentences. Pt is being transported home by stretcher via EMS.
== END 2022-09-05 21:02 | disposition home or self-care (01) ==
PROVIDERS: Physician Assistant; Emergency Provider Emergency Medicine; PCP Internal Medicine Geriatric Medicine
DX: J44.1 Chronic obstructive pulmonary disease with (acute) exacerbation (principal); M75.52 Bursitis of left shoulder; R06.02 Shortness of breath; Z20.822 Contact with and (suspected) exposure to COVID-19
CPT/HCPCS: 0241U; 36415; 71045; 73030; 80048; 80076; 83735; 83880; 84484; 85025; 85652; 86140; 93005; 96365; 96375; 99285; J2930; J3475

== ENCOUNTER 2022-09-07 08:02 | Emergency (ER) | payer MEDICARE, MEDICAID, SELFPAY ==
--- NOTE | ~2022-09-07 | XR_ITS ---
EXAMINATION: XR CHEST CLINICAL INFORMATION: Dyspnea COMPARISON: 09/05/2022 TECHNIQUE: Frontal view of the chest was obtained. FINDINGS: No acute finding. Lung pedro are grossly clear. No failure or infiltrate. There is no effusion. The cardiac silhouette is comparable to previous. The hilar structures do not appear pathologically enlarged. There is no effusion. XR/XR chest 1V IMPRESSION: No acute finding
[2022-09-07 08:14] VITALS: BP 132/96; BP 155/93; PULSE 103; PULSE 110; RESP 26; TEMP 36.4; O2SAT 100; BMI 26.5
--- NOTE | 2022-09-07 08:14 | ECG_ITS ---
Test Reason : dyspnea Blood Pressure : / mmHG Vent. Rate : 097 BPM Atrial Rate : 097 BPM P-R Int : 136 ms QRS Dur : 078 ms QT Int : 364 ms P-R-T Axes : 056 -12 045 degrees QTc Int : 462 ms Sinus rhythm and Premature atrial complexes Nonspecific T wave abnormality Abnormal ECG When compared with ECG of 05-SEP-2022 09:09, No significant changes seen Referred By: Marija Levy Electronically Signed By:LYNDA GLEZ
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
[2022-09-07 08:20] VITALS: PULSE 98; RESP 29; TEMP 36.4; O2SAT 99
[2022-09-07] MEDS: Albuterol Sulfate 2.5 MG, Albuterol/Iprat 2.5/0.5MG 3 ML 3 ML INHALE (08:24)
[2022-09-07 08:25] VITALS: PULSE 94; RESP 18; O2SAT 97
--- OUTSIDE RECORDS SUMMARY | 2022-09-07 08:29 | XMS_ITS ---
:1955 Author Care Team Providers Name Role Phone ABDI THOMPSON 1ST FLOOR OTHER [phone] Allergies Code Code System Name Reaction Severity Status Onset Advair Diskus ? ? Active ? 630543 RxNorm Paxil ? ? Active ? 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
[2022-09-07 08:54] LABS: MANUAL DIFF FLAG NO
[2022-09-07 08:57] LABS: Basophils Percent Auto 0.1 % (0-2); Eosinophils Percent Auto 0.1 % (0-4); Hematocrit 30.6 % (37.0-47.0); Imm Gran Abs Auto 0.06 X10*3/uL (0.00-0.03); Imm Gran Pct Auto 0.7 % (0.0-0.4); Lymphocytes Absolute Auto 1.9 X10*3/uL (1.2-4.9); Lymphocytes Percent Auto 23.5 % (20-40); Mean Corpuscular HGB Conc 32.7 g/dl (31.0-35.0); Mean Corpuscular Hemoglobin 25.4 pg (27.0-33.0); Mean Corpuscular Volume 77.7 fL (80.0-98.0); Mean Platelet Volume 8.2 fL (9.4-12.3); Monocytes Absolute Auto 0.9 X10*3/uL (0.1-1.2); Monocytes Percent Auto 10.7 % (2-11); Neutrophils Absolute Auto 5.2 x10*3/uL (2.0-8.3); Neutrophils Percent Auto 64.9 % (45-73); Platelet Count 430 X10*3/uL (160-400); Red Blood Count 3.94 X10*6/uL (4.20-5.50); Red Cell Distribution Width 17.2 % (11.0-16.0); White Blood Count 8.1 X10*3/uL (4.8-10.8)
[2022-09-07] MEDS: methylPREDNISolone Sod Succ 125 MG/2 ML VIAL 60 MG IVPUSH (09:05)
[2022-09-07] MEDS: Acetaminophen 325 MG TABLET 975 MG PO (09:05)
--- NOTE | 2022-09-07 09:11 | PC.NURSE ---
Pt given neb treatment by respiratory, IV meds given, tolerated well. Pt n ow resting comfortably in bed, resting with eyes closed.
[2022-09-07 09:17] LABS: Alanine Aminotransferase 11 U/L (0-31); Albumin Level 3.6 g/dL (3.5-5.0); Alkaline Phosphatase 108 U/L (39-117); Anion Gap 14 (12-20); Aspartate Amino Transferase 16 U/L (5-31); Bilirubin Direct 0.3 mg/dL (0.0-0.5); Bilirubin Total 0.5 mg/dL (0.0-1.0); Blood Urea Nitrogen 29 mg/dL (9-16); Carbon Dioxide 27 mmol/L (22-29); Chloride 100 mmol/L (96-108); Creatinine Clr Calc Pharmacy 46.3; Estimated Glomerular Filt Rate 51; Glucose Random 115 mg/dL (60-115); Magnesium 2.3 mg/dL (1.6-2.6); Potassium 4.7 mmol/L (3.3-5.1); Sodium 136 mmol/L (135-145); Total Protein 6.6 g/dL (6.5-8.0)
[2022-09-07 09:19] LABS: B Type Natriuretic Peptide 133 pg/mL (<100); Troponin-I High Sensitivity 6.9 ng/L (<3.5-17.0)
[2022-09-07 09:39] LABS: Procalcitonin 0.04 ng/mL
[2022-09-07 10:11] LABS: Influenza A PCR NEGATIVE (Negative); Influenza B PCR NEGATIVE (Negative); Resp Syncy Virus RNA Qual PCR NEGATIVE (Negative); SARS COV2 PCR INHOUSE NEGATIVE (Negative)
[2022-09-07 10:26] LABS: Lactic Acid 0.8 mmol/L (0.5-2.0)
== END 2022-09-07 12:44 | disposition home or self-care (01) ==
PROVIDERS: Emergency Provider Emergency Medicine; PCP Internal Medicine Geriatric Medicine
DX: J44.1 Chronic obstructive pulmonary disease with (acute) exacerbation (principal); R06.02 Shortness of breath; Z20.822 Contact with and (suspected) exposure to COVID-19; E11.9 Type 2 diabetes mellitus without complications; I11.0 Hypertensive heart disease with heart failure; I50.9 Heart failure, unspecified; Z79.899 Other long term (current) drug therapy; Z87.891 Personal history of nicotine dependence; Z99.81 Dependence on supplemental oxygen
CPT/HCPCS: 0241U; 36415; 71045; 80048; 80076; 83605; 83735; 83880; 84145; 84484; 85025; 87040; 93005; 94640; 96374; 99284; 99285; J2930

== ENCOUNTER → 2022-10-14 12:55 | Outpatient (BNVA) | payer MEDICARE, MEDICAID, SELFPAY | PROVIDERS: PCP Internal Medicine Geriatric Medicine; Referring Provider Internal Medicine Geriatric Medicine; Visit Provider Surgery | DX: M25.812 Other specified joint disorders, left shoulder (principal); R22.32 Localized swelling, mass and lump, left upper limb; M25.512 Pain in left shoulder; Z80.3 Family history of malignant neoplasm of breast | CPT/HCPCS: 10160; 99202 ==

== ENCOUNTER → 2022-10-22 10:55 | Outpatient (BNVA) | payer MEDICARE, MEDICAID, SELFPAY | PROVIDERS: PCP Internal Medicine Geriatric Medicine; Visit Provider Surgery | DX: M25.412 Effusion, left shoulder (principal) | CPT/HCPCS: 10160; 20610; 99212 ==

== ENCOUNTER 2022-11-01 22:08 | Emergency (ER) | payer MEDICARE, MEDICAID, SELFPAY ==
--- NOTE | ~2022-11-01 | XR_ITS ---
EXAMINATION: XR KNEE, LEFT CLINICAL INFORMATION: Knee pain. COMPARISON: None TECHNIQUE: Four views of the left knee. FINDINGS: No fracture. No dislocation. Moderate sized suprapatellar joint effusion. Tricompartment degenerative joint disease. Significant joint narrowing of the medial femoral tibial joint. Marginal bone spurs of femur, tibia and patella at all 3 joint space compartments. No bone erosion. XR/XR knee LT 2V IMPRESSION: 1. No acute osseous abnormality. 2. Degenerative joint disease of the knee. 3. Joint effusion.
--- NOTE | ~2022-11-01 | XR_ITS ---
EXAMINATION: XR SHOULDER, LEFT CLINICAL INFORMATION: Pain. COMPARISON: Left knee 09/05/2022 TECHNIQUE: Two views of the left shoulder. FINDINGS: No fracture. No dislocation. No soft tissue calcification. Marked degenerative arthropathy of the left glenohumeral joint of joint narrowing, subchondral cystic change and sclerosis and marginal bone spurs at both the glenoid and humeral head. Compared with prior study 09/05/2022 no significant change. XR/XR shoulder LT min 2V IMPRESSION: 1. No acute abnormality. 2. Marked degenerative arthropathy of the glenohumeral joint.
--- NOTE | ~2022-11-01 | XR_ITS ---
EXAMINATION: XR SHOULDER, RIGHT CLINICAL INFORMATION: Pain. COMPARISON: None TECHNIQUE: Two views of the right shoulder. FINDINGS: No fracture. No dislocation. Severe degenerative arthropathy of the glenohumeral joint. Joint narrowing with marginal bone spurs and subchondral cystic change and sclerosis of the humeral head and glenoid. There are soft tissue calcifications in the joint space, loose bodies. Degenerative change of the acromioclavicular joint with marginal bone spurs of the acromion and clavicle. XR/XR shoulder RT min 2V IMPRESSION: 1. No acute abnormality. 2. Severe degenerative arthropathy of the glenohumeral joint.
[2022-11-01 22:19] VITALS: BP 124/60; BP 176/76; PULSE 93; PULSE 96; RESP 18; TEMP 36.9; O2SAT 93; O2SAT 95; BMI 37.2
[2022-11-01 22:27] VITALS: BP 124/60; PULSE 93; RESP 18; TEMP 36.9; O2SAT 95
--- NOTE | 2022-11-01 23:01 | ED.GENADULT ---
HPI - General Adult General Chief complaint: General Medical Stated complaint: abd pain Time Seen by Provider: 11/01/22 22:14 History of Present Illness HPI narrative: Patient is a 67 year female with a T joint effusion in the left shoulder. 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 Patient had a history of similar symptoms in the past. Denies any fever chills. Denies any focal weakness. Pain is worse with ambulation. Worse with movement. No chest pain or shortness of breath no diaphoresis. Related Data Home Medications Medication Instructions Recorded Confirmed albuterol sulfate 90 mcg/actuation 2 puff inhalation Q4H PRN 07/25/22 10/22/22 aerosol inhaler shortness of breath or wheezing albuterol sulfate 2.5 mg/3 mL 1 amp inhalation Q4H PRN wheezing 07/26/22 10/22/22 (0.083 %) solution for nebulization quetiapine 50 mg tablet 25 mg PO BID 07/26/22 10/22/22 Previous Rx's Medication Instructions Recorded acetaminophen 650 mg 1 tab PO BID PRN pain 30 days #60 04/29/22 tablet,extended release tabs aspirin 81 mg tablet,delayed 1 tab PO QPM 30 days #30 tabs 04/29/22 release baclofen 20 mg tablet 20 mg PO DAILY PRN Back Pain 30 04/29/22 days #30 tabs fluticasone propionate 220 1 puff PO BID #12 grams 04/29/22 mcg/actuation HFA aerosol inhaler (Flovent HFA) folic acid 1 mg tablet 1 mg PO QAM 30 days #30 tabs 04/29/22 ipratropium 0.5 mg-albuterol 3 mg 1 amp inhalation Q4H PRN Wheezing 04/29/22 (2.5 mg base)/3 mL nebulization 30 days #30 multiple units soln metoprolol succinate 25 mg 1 tab PO QAM 30 days #30 tabs 04/29/22 tablet,extended release 24 hr montelukast 10 mg tablet 1 tab PO QPM 30 days #30 tabs 04/29/22 multivitamin (Daily-Cony tablet) 1 tab PO DAILY 30 days #30 tabs 04/29/22 ondansetron 4 mg disintegrating 4 mg PO Q12H PRN Nausea 30 days 04/29/22 tablet #30 tabs pravastatin 20 mg tablet 1 tab PO QPM 30 days #30 tabs 04/29/22 sennosides 8.6 mg tablet (senna) 1 tab PO BID PRN constipation 30 04/29/22 days #60 tabs thiamine HCl (vitamin B1) 100 mg 1 tab PO QAM 30 days #30 tabs 04/29/22 tablet omeprazole 20 mg capsule,delayed 20 mg PO DAILY@0630 #30 caps 07/27/22 release albuterol sulfate 90 mcg/actuation 1 inh inhalation QID #6.7 grams 09/01/22 aerosol inhaler lidocaine 5 % topical patch 1 patch topical DAILY PRN pain #30 09/05/22 (Lidoderm) ea prednisone 20 mg tablet 40 mg PO DAILY 5 days #10 tabs 09/05/22 doxycycline hyclate 100 mg capsule 100 mg PO BID 7 days #14 caps 09/07/22 prednisone 20 mg tablet 40 mg PO DAILY 5 days #10 tabs 09/07/22 Allergies Allergy/AdvReac Type Severity Reaction Status Date / Time advair Allergy Unknown Unknown Uncoded 10/22/22 11:18 From PAXIL AdvReac Intermediate NAUSEA & Uncoded 10/22/22 11:18 VOMITING Review of Systems Review of Systems: Positive pain to the shoulders bilaterally, pain to the right knee PMFSH Past Medical History Attestation statement: The following information was validated with the patient. Medical History Acute hyponatremia Acute hyponatremia Alcohol use disorder Bipolar 1 disorder Bipolar I disorder Cannabis use disorder, moderate, dependence Chronic hyponatremia Congestive heart failure COPD (chronic obstructive pulmonary disease) Coronary artery disease Dementia Diabetes Effusion of shoulder joint, left Family history of breast cancer Hypertension Korsakoff disease Mass of joint of left shoulder Osteoarthritis Schizophrenia Shortness of breath Sleep apnea Surgical History Hx of appendectomy Family History Family History Sister Breast cancer, Onset Age: 40 Sister Breast cancer, Onset Age: 50 Social History Social History Household Members: Spouse Housing: Apartment Do you presently have visiting nurse or other home services: Yes Unable to assess alcohol history related to: Unknown Alcohol intake: current Alcohol intake frequency: a few times a week Alcohol type: beer and wine Patient Tobacco Use Status: Former Tobacco user Tobacco use type: Cigarette Cigarettes Per Day: 6 Years Smoked: 53 Smoked in Last 30 Days: Yes e-Cigarette/Vaping Use: Never Used Second Hand Smoke Exposure: Yes Use of substances other than those prescribed or required for medical reasons: Yes Substance Use Type: Marijuana Last Used Substance: Hours (ago) Advance Directives: Yes Advance Directives on File: Yes Advance Directives Date on File: 10/10/20 service: No Current occupational status: unemployed, disabled and other Sexual orientation: Straight/Heterosexual Physical Exam ED Vital Signs: Vital Signs - 24 hr 11/01/22 22:19 11/01/22 22:27 11/02/22 00:10 Temperature 98.4 F 98.4 F Pulse Rate 93 93 Respiratory Rate 18 18 19 Blood Pressure 124/60 124/60 Pulse Oximetry 95 95 Oxygen Delivery Method Room Air Room Air Oxygen Flow Rate 11/02/22 00:46 11/02/22 02:23 Temperature 98.5 F Pulse Rate 93 95 Respiratory Rate 19 16 Blood Pressure 127/73 Pulse Oximetry 95 Oxygen Delivery Method Nasal Cannula Oxygen Flow Rate 2 BMI result Body Mass Index 37.2 Appearance: Alert. Oriented X3. No acute distress. Eyes: Pupils equal, round and reactive to light. ENT: Pharynx normal. Neck: Normal inspection. Neck supple. No lymph nodes noted. No crepitus CVS: Normal heart rate and rhythm. Pulses normal. Normal S1 and S2 Respiratory: No respiratory distress. Breath sounds normal. No Wheezing. No rales Abdomen: Soft and nontender. No rigidity. No distention. good BS x4 Examination of the right shoulder show good range of motion there is no gross swelling there is no gross effusion noted. Sensation over the axillary median radial ulnar nerve intact. Motor at the elbow wrist hand intact. Motor at the shoulder show good abduction adduction internal rotation and external rotation Examination of the left shoulder shows a lipoma present. Range of motion limited secondary to pain at the shoulder. Sensation over the axillary median radial ulnar nerve intact. Movement at the elbow wrist and intact. Capillary refill less than 2 seconds. Examination of the right knee showed skin intact. Positive joint effusion on palpation. Limited range of motion. Distally neurovascularly intact. Skin intact Skin: Skin warm and dry. Normal skin color. Normal skin turgor. Extremities: No lower extremity edema. Neurovascular intact to all extremities. No Lacerations. No Rash Neuro: Oriented X 3. No motor deficit. No sensory deficit. Moving all extermities. No slurred speech Medications Administered Discontinued Medications Generic Name Dose Route Start Last Admin Trade Name Sunnyq PRN Reason Stop Dose Admin Albuterol Sulfate 2.5 mg 11/02/22 00:16 11/02/22 00:45 Albuterol Sulfate (0.083%) 2.5 Mg/3 Ml Vial.[facility] INHALE 11/02/22 00:17 2.5 mg ONCE ONE Administration Hydromorphone HCl 0.5 mg 11/01/22 23:00 11/02/22 00:10 Hydromorphone Hcl 0.5 Mg/0.5 Ml Syringe IVPUSH 11/01/22 23:01 0.5 mg ONCE ONE Administration Protocol Medical Decision Making Medical Decision Making [facility] Narrative: Patient has a history of COPD. History of pain to the bilateral shoulders. History of pain to the right knee in the past. Patient x-ray of bilateral shoulders were negative for any acute fracture. No dislocation. Patient on exam has a large lipoma over the left shoulder. This is chronic documented in the past. Patient also has pain to the right knee. X-ray the knee showed no fracture. Patient given a dose of pain medicine. She did have some wheezing. Will give her at [facility] treatment as well. Symptomatic least she feels much improved. Wants to go home. Will discharge patient home. There is no evidence of any fracture. Cannot exclude the possibility of ligamentous or cartilaginous injury. Will have patient follow-up on an outpatient basis. Differential Diagnosis Arthritis, internal derangement of the knee. Lab Data [facility] Lab Attestation statement: I reviewed the patient's lab results. 11/01/22 23:39 11/01/22 23:39 Labs: Lab Results 11/01/22 11/01/22 Range/Units 23:39 23:39 WBC 9.4 (4.8-10.8) X10*3/uL RBC 3.43 L (4.20-5.50) X10*6/uL Hgb 8.0 L (12.0-16.0) g/dl Hct 25.7 L (37.0-47.0) % MCV 74.9 L (80.0-98.0) fL MCH 23.3 L (27.0-33.0) pg MCHC 31.1 (31.0-35.0) g/dl RDW 19.0 H (11.0-16.0) % Plt Count 416 H (160-400) X10*3/uL MPV 8.2 L (9.4-12.3) fL Immature Gran % (Auto) 0.6 H (0.0-0.4) % Neut % (Auto) 77.3 H (45-73) % Lymph % (Auto) 9.0 L (20-40) % Ware % (Auto) 12.8 H (2-11) % Eos % (Auto) 0.2 (0-4) % Baso % (Auto) 0.1 (0-2) % Lymph # (Auto) 0.9 L (1.2-4.9) X10*3/uL Ware # (Auto) 1.2 (0.1-1.2) X10*3/uL Eos # (Auto) 0.0 (0.0-0.4) X10*3/uL Baso # (Auto) 0.0 (0.0-0.2) X10*3/uL Abs Immat Gran (auto) 0.06 H (0.00-0.03) X10*3/uL Absolute Neuts (auto) 7.3 (2.0-8.3) x10*3/uL Absolute Nucleated RBC 0.000 (0.0-0.012) X10*3/uL Nucleated RBC % (auto) 0.0 (0.0-0.2) /100WBC Sodium 132 L (135-145) mmol/L Potassium 4.3 (3.3-5.1) mmol/L Chloride 96 (96-108) mmol/L Carbon Dioxide 25 (22-29) mmol/L Anion Gap 15 (12-20) BUN 24 H (9-16) mg/dL Creatinine 1.29 (0.5-1.4) mg/dL Estim Creat Clear Calc 45.1 Estimated GFR 41 Random Glucose 151 H (60-115) mg/dL Calcium 8.7 (8.4-10.2) mg/dL Radiology Impression Discussion of test interpretation with radiology: I have reviewed the radiologist's reading. External Record Review External record reviewed: Inpatient record Discharge Plan Discharge Clinical Impression: Arthritis Patient Disposition: Home, Self-Care Instructions: Osteoarthritis (ED) Prescriptions: No Action albuterol sulfate 90 mcg/actuation HFA aerosol inhaler 2 puff inhalation Q4H PRN (Reason: shortness of breath or wheezing) albuterol sulfate 2.5 mg /3 mL (0.083 %) solution for nebulization 1 amp inhalation Q4H PRN (Reason: wheezing) quetiapine 50 mg tablet 25 mg PO BID omeprazole 20 mg Capsule,Delayed Release(Dr/Ec) 20 mg PO DAILY@0630 Qty: 30 0RF doxycycline hyclate 100 mg capsule 100 mg PO BID 7 Days Qty: 14 0RF prednisone 20 mg tablet 40 mg PO DAILY 5 Days Qty: 10 0RF multivitamin [Daily-Cony] Tablet 1 tab PO DAILY 30 Days Qty: 30 0RF sennosides [senna] 8.6 mg tablet 1 tab PO BID PRN (Reason: constipation) 30 Days Qty: 60 0RF ipratropium-albuterol 0.5 mg-3 mg(2.5 mg base)/3 mL solution for nebulization 1 amp inhalation Q4H PRN (Reason: Wheezing) 30 Days Qty: 30 0RF thiamine HCl (vitamin B1) 100 mg tablet 1 tab PO QAM 30 Days Qty: 30 0RF aspirin 81 mg tablet,delayed release (DR/EC) 1 tab PO QPM 30 Days Qty: 30 0RF acetaminophen 650 mg tablet extended release 1 tab PO BID PRN (Reason: pain) 30 Days Qty: 60 0RF baclofen 20 mg Tablet 20 mg PO DAILY PRN (Reason: Back Pain) 30 Days Qty: 30 0RF folic acid 1 mg tablet 1 mg PO QAM 30 Days Qty: 30 0RF montelukast 10 mg tablet 1 tab PO QPM 30 Days Qty: 30 0RF fluticasone propionate [Flovent HFA] 220 mcg/actuation HFA aerosol inhaler 1 puff PO BID Qty: 12 0RF pravastatin 20 mg tablet 1 tab PO QPM 30 Days Qty: 30 0RF metoprolol succinate 25 mg tablet extended release 24 hr 1 tab PO QAM 30 Days Qty: 30 0RF ondansetron 4 mg Tablet,Disintegrating 4 mg PO Q12H PRN (Reason: Nausea) 30 Days Qty: 30 0RF albuterol sulfate 90 mcg/actuation HFA aerosol inhaler 1 inh inhalation QID Qty: 6.7 0RF prednisone 20 mg tablet 40 mg PO DAILY 5 Days Qty: 10 0RF lidocaine [Lidoderm] 5 % adhesive patch,medicated 1 patch topical DAILY MDD remove after 12 hours PRN (Reason: pain) Qty: 30 0RF Rx Instructions: leave on most painful area for up to 12 hrs Referrals: Name,MD Ryder [Primary Care Provider] - 11/04/22
[2022-11-01 23:43] LABS: MANUAL DIFF FLAG NO
[2022-11-01 23:44] LABS: Basophils Percent Auto 0.1 % (0-2); Eosinophils Percent Auto 0.2 % (0-4); Hematocrit 25.7 % (37.0-47.0); Imm Gran Abs Auto 0.06 X10*3/uL (0.00-0.03); Imm Gran Pct Auto 0.6 % (0.0-0.4); Lymphocytes Absolute Auto 0.9 X10*3/uL (1.2-4.9); Mean Corpuscular HGB Conc 31.1 g/dl (31.0-35.0); Mean Corpuscular Hemoglobin 23.3 pg (27.0-33.0); Mean Corpuscular Volume 74.9 fL (80.0-98.0); Mean Platelet Volume 8.2 fL (9.4-12.3); Monocytes Absolute Auto 1.2 X10*3/uL (0.1-1.2); Monocytes Percent Auto 12.8 % (2-11); Neutrophils Absolute Auto 7.3 x10*3/uL (2.0-8.3); Neutrophils Percent Auto 77.3 % (45-73); Platelet Count 416 X10*3/uL (160-400); Red Blood Count 3.43 X10*6/uL (4.20-5.50); White Blood Count 9.4 X10*3/uL (4.8-10.8)
[2022-11-02 00:05] LABS: Anion Gap 15 (12-20); Blood Urea Nitrogen 24 mg/dL (9-16); Calcium 8.7 mg/dL (8.4-10.2); Carbon Dioxide 25 mmol/L (22-29); Chloride 96 mmol/L (96-108); Creatinine Clr Calc Pharmacy 45.1; Estimated Glomerular Filt Rate 41; Glucose Random 151 mg/dL (60-115); Potassium 4.3 mmol/L (3.3-5.1); Sodium 132 mmol/L (135-145)
[2022-11-02 00:10] VITALS: RESP 19
[2022-11-02] MEDS: HYDROmorphone HCl 0.5 MG/0.5 ML SYRINGE IVPUSH (00:10)
[2022-11-02] MEDS: Albuterol Sulfate (0.083%) 2.5 MG/3 ML VIAL.NEB INHALE (00:45)
[2022-11-02 00:46] VITALS: PULSE 93; RESP 19; O2SAT 98
[2022-11-02 02:23] VITALS: BP 127/73; PULSE 95; RESP 16; TEMP 36.9; O2SAT 95
--- NOTE | 2022-11-02 02:42 | MHC.EDTECH ---
Call out to [facility] @[id number] Booked BLS back home ETA of 30 mins was given
--- NOTE | 2022-11-02 03:13 | MHC.EDTECH ---
pt was incontinent of urine, this pct and andrez cleaned up pt, changed gown and gave new blanket.
== END 2022-11-02 03:00 | disposition home or self-care (01) ==
PROVIDERS: Emergency Provider Emergency Medicine Emergency Medical Services; PCP Internal Medicine Geriatric Medicine
DX: M17.11 Unilateral primary osteoarthritis, right knee (principal); M25.512 Pain in left shoulder; M25.511 Pain in right shoulder; Z87.891 Personal history of nicotine dependence; Z79.899 Other long term (current) drug therapy
CPT/HCPCS: 36415; 73030; 73560; 80048; 85025; 94640; 96374; 99284; J1170

== ENCOUNTER → 2022-11-04 10:40 | Outpatient (BNVA) | payer MEDICARE, MEDICAID, SELFPAY | PROVIDERS: PCP Internal Medicine Geriatric Medicine; Visit Provider Surgery | DX: Z13.89 Encounter for screening for other disorder (principal) | CPT/HCPCS: 10021; 99212 ==

== ENCOUNTER 2022-11-04 18:23 | Emergency (ER) | payer MEDICARE, MEDICAID, SELFPAY ==
--- NOTE | ~2022-11-04 | XR_ITS ---
EXAMINATION: XR CHEST CLINICAL INFORMATION: Shortness of breath COMPARISON: 09/07/2022 TECHNIQUE: Frontal view of the chest was obtained. FINDINGS: No significant abnormality is noted involving the heart, lungs, mediastinum, bony thorax or soft tissues. XR/XR chest 1V IMPRESSION: Unremarkable examination.
[2022-11-04 18:45] VITALS: BP 138/66; PULSE 98; RESP 18; TEMP 36.6; O2SAT 95; BMI 30.4
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
--- NOTE | 2022-11-04 19:43 | PC.NURSE ---
Patient is wheelchair bound, uses walker to pivot, total dependent on ADL care, patient is high fall risk, patient is currently sitting in chair awaiting changeover, charge nurse made aware of patient risk, awaiting transfer to main ED, will continue to monitor.
[2022-11-04 19:59] LABS: Influenza A PCR NEGATIVE (Negative); Influenza B PCR NEGATIVE (Negative); Resp Syncy Virus RNA Qual PCR NEGATIVE (Negative); SARS COV2 PCR INHOUSE NEGATIVE (Negative)
[2022-11-04 20:18] LABS: Appearance Urine Clear; Color Urine Yellow; Glucose Urine UA Negative (Negative); Leukocyte Esterase Urine Negative (Negative); Nitrite Urine Negative (Negative); PH 5.5 (5.0-9.0); UMIC TRIGGER UACC YES; Urine Blood Moderate (2+) (Negative); Urine Ketones Negative (Negative); Urine Protein 30 (1+) mg/dL (Neg-Trace)
[2022-11-04] MEDS: Albuterol Sulfate 90 MCG 8 GM INHALER 2 PUFF INHALE (20:20)
[2022-11-04 20:21] LABS: Bacteria Urine None Seen (None Seen); Hyaline Casts Urine 0-2 /LPF (0-2); Squamous Epithelial Cell Urine 0-2 /HPF (0-2); WBC Urine 0-5 /HPF (0-5)
[2022-11-04 20:29] LABS: Amphetamine Screen Urine Not Detected (Not Detect); Barbiturates, Urine Not Detected (Not Detect); Benzodiazepines Screen Urine Not Detected (Not Detect); Cannabinoid Screen Urine POSITIVE (Not Detect); Cocaine Screen Urine Not Detected (Not Detect); Fentanyl, urine POSITIVE (Not Detect); Opiate Screen Urine Not Detected (Not Detect); Phencyclidine Screen Urine Not Detected (Not Detect)
[2022-11-05] VITALS (9 sets, daily range): BP systolic 129–149; BP diastolic 55–86; PULSE 96–113; RESP 16–20; TEMP 36.4–36.7; O2SAT 94–98
--- NOTE | 2022-11-05 00:14 | PC.NURSE ---
Pt aox3 in no apparent distress. Req water. Able to swallow with no difficulty. Reports no pain at this time. Pending care team eval. Will continue to monitor.
[2022-11-05 00:32] LABS: MANUAL DIFF FLAG NO
[2022-11-05 00:33] LABS: Basophils Percent Auto 0.4 % (0-2); Eosinophils Absolute Auto 0.2 X10*3/uL (0.0-0.4); Eosinophils Percent Auto 2.8 % (0-4); Hematocrit 24.5 % (37.0-47.0); Hemoglobin 7.6 g/dl (12.0-16.0); Imm Gran Abs Auto 0.04 X10*3/uL (0.00-0.03); Imm Gran Pct Auto 0.6 % (0.0-0.4); Lymphocytes Absolute Auto 1.8 X10*3/uL (1.2-4.9); Lymphocytes Percent Auto 26.1 % (20-40); Mean Corpuscular Hemoglobin 23.1 pg (27.0-33.0); Mean Corpuscular Volume 74.5 fL (80.0-98.0); Mean Platelet Volume 8.5 fL (9.4-12.3); Monocytes Absolute Auto 0.9 X10*3/uL (0.1-1.2); Monocytes Percent Auto 13.1 % (2-11); Neutrophils Absolute Auto 3.9 x10*3/uL (2.0-8.3); Platelet Count 435 X10*3/uL (160-400); Red Blood Count 3.29 X10*6/uL (4.20-5.50); Red Cell Distribution Width 19.2 % (11.0-16.0); White Blood Count 6.8 X10*3/uL (4.8-10.8)
[2022-11-05 00:51] LABS: Anion Gap 16 (12-20); Blood Urea Nitrogen 26 mg/dL (9-16); Calcium 8.4 mg/dL (8.4-10.2); Carbon Dioxide 21 mmol/L (22-29); Chloride 102 mmol/L (96-108); Creatinine Clr Calc Pharmacy 50.8; Estimated Glomerular Filt Rate 43; Ethanol < 10 mg/dL; Glucose Random 126 mg/dL (60-115); Magnesium 2.1 mg/dL (1.6-2.6); Potassium 4.2 mmol/L (3.3-5.1); Sodium 135 mmol/L (135-145)
[2022-11-05 02:50] LABS: OBS Int Ctl Valid YES
[2022-11-05 02:52] LABS: OBS1 NEGATIVE (NEGATIVE)
[2022-11-05 02:56] LABS: Alanine Aminotransferase 6 U/L (0-31); Albumin Level 3.1 g/dL (3.5-5.0); Alkaline Phosphatase 116 U/L (39-117); Aspartate Amino Transferase 15 U/L (5-31); Bilirubin Direct < 0.2 mg/dL (0.0-0.5); Bilirubin Total 0.2 mg/dL (0.0-1.0); Iron 13 mcg/dL (30-160); Percent Iron Saturation 4 % (15-50); Total Iron Binding Capacity 309 mcg/dL (228-428); Total Protein 6.6 g/dL (6.5-8.0); Unsaturated Iron Binding 296 ug/dL
[2022-11-05] MEDS: dexAMETHasone 2 MG TABLET 10 MG PO (03:01)
[2022-11-05] MEDS: Ferrous Sulfate 324 MG TABLET.DR PO (03:02)
--- NOTE | 2022-11-05 06:06 | MHC.EDTECH ---
pt was incontinent of urine. this pct and rn florencio changed bedding and clothing on pt. timothy care was done. purewick applied with mesh underwear to help keep in place.
--- NOTE | 2022-11-05 07:35 | MHC.EDTECH ---
Pt was a set up for her breakfast. Pt ate 85% of her meal on her own.
[2022-11-05] MEDS: Albuterol/Iprat 2.5/0.5MG 3 ML AMPUL.NEB INHALE ×4 (07:43→20:38)
--- NOTE | 2022-11-05 08:56 | MHC.CARE ---
CARE Team attempted to meet with pt to conduct a mental status update. Pt was unable to participate due to her sleeping. T/w attempted to wake her up by calling her name multiple times to no avail. CARE Team will follow up at a later time.?
[2022-11-05] MEDS: predniSONE 20 MG TABLET 40 MG PO (09:08)
[2022-11-05] MEDS: Ferrous Sulfate 300 MG/5 ML LIQUID PO ×2 (09:08→21:36)
--- NOTE | 2022-11-05 13:42 | MHC.CM.ED ---
Addendum entered by Risa Lozano 11/05/22 14:45: Copy of med list obtained from [facility]. Placed in chart. Original Note: Received case management consult from Dr Lazaro. Izabella came to the ER under section 12. Cleared by care team. Patient is well known to case management due to freq ER visits. Patient lives with her sig other/HCP, Juanjo. Patient is active with [facility] and has [employer] through [facility]. Patient is also active with [facility]. T/W spoke with Emily at [facility] via telephone at [phone]. Last time patient was discharged from ER, it was arranged that patient would go to a Adult Day Program Wednesday to Wednesday during the day. Patient has refused to go. Juanjo is again stating he can't care for patient. Patient has been difficult to place in the past due to Juanjo signing patient out AMA. Patient also typically comes to the ER with behavior issues. T/W left a message for Kennedy Luther at [facility] via telephone at [phone] ext [phone], requesting return telephone call. Referral broadcasted within 25 miles at this time. Continue to monitor for d/c needs.
--- NOTE | 2022-11-05 14:41 | PC.NURSE ---
report given to taye in overflow
--- NOTE | 2022-11-05 15:48 | MHC.CARE ---
Pt was cleared psychiatrically by the CARE Team, pt is now in the care of Case Management.
--- NOTE | 2022-11-05 15:51 | PHA.MEDREC ---
Pharmacy Consult ? Medication Reconciliation Pharmacy has completed the medication reconciliation. Used list from [facility]
--- NOTE | 2022-11-05 16:44 | MHC.EDTECH ---
pt was wet. REAGAN Doran and myself cleaned pt. Purwick has been changed and pt is resting comfortably at this time
--- NOTE | 2022-11-05 17:14 | MHC.CM.ED ---
Addendum entered by Sonam Solis 11/05/22 18:14: Juanjo tells CM that Belia is scheduled for Outpatient MRI tomorrow, 11/06 of her L shoulder. Pt has an effusion/mass/pain. CM spoke with Lynn VARGAS. Called MRI at her request. MRI sees patient in visits, but cannot she time she is booked for. Suggested CM call Myriam ([phone]) on 11/06 at 8am regarding MRI scheduling for this patient and how to go about patient having MRI while in ED waiting for LTC placement. Original Note: Spoke with HCP/S.O. Juanjo Montelongo, who tells me he can no longer care for her. He says she's crazy. Won't allow anyone in the house, won't go to program . Tells CM she has to go to facility. Juanjo is aware that referrals for LTC, for patient to live there, have been made. No bed offers yet. Aware that LTC beds are difficult to fine. States he wants her local. Explained that CM would try local, but may need to referral farther out. Today, Juanjo is agreeable to LTC. In the past, Juanjo has been agreeable, but then refuses to place her and takes her home. Juanjo tells CM that this time, he cannot care for her any more. CM will follow for discharge planning.
[2022-11-05] MEDS: Folic Acid 1 MG TABLET PO (17:44)
[2022-11-05] MEDS: Thiamine HCL 100 MG TABLET PO (17:45)
[2022-11-05] MEDS: QUEtiapine Fumarate 50 MG TABLET PO ×2 (17:45→21:14)
[2022-11-05] MEDS: Metoprolol Succinate ER 25 MG TAB.ER.24H PO (17:45)
--- NOTE | 2022-11-05 18:33 | MHC.EDTECH ---
pt at all her dinner then made a bowel movement on the commode. pt is now resting comfortably in bed
[2022-11-05] MEDS: Montelukast Sodium 10 MG TABLET PO (21:14)
[2022-11-05] MEDS: Aspirin Enteric Coated 81 MG TABLET.DR PO (21:14)
[2022-11-05] MEDS: Doxycycline Monohydrate 100 MG CAPSULE PO (21:14)
[2022-11-05] MEDS: Pravastatin Sodium 20 MG TABLET PO (21:14)
[2022-11-06] VITALS (7 sets, daily range): BP systolic 147–177; BP diastolic 72–85; PULSE 94–108; RESP 18–22; TEMP 36.9; O2SAT 92–97
[2022-11-06] MEDS: Baclofen 20 MG TABLET PO (02:17)
[2022-11-06 05:14] LABS: Glucose, Whole Blood 139 mg/dL (60-115)
[2022-11-06] MEDS: Albuterol/Iprat 2.5/0.5MG 3 ML AMPUL.NEB INHALE ×5 (05:15→20:25)
[2022-11-06] MEDS: Omeprazole 20 MG CAPSULE.DR PO (06:12)
[2022-11-06] MEDS: Folic Acid 1 MG TABLET PO (08:07)
[2022-11-06] MEDS: Metoprolol Succinate ER 25 MG TAB.ER.24H PO (08:07)
[2022-11-06] MEDS: Multivitamin TABLET 1 TAB PO (08:07)
[2022-11-06] MEDS: Thiamine HCL 100 MG TABLET PO (08:08)
--- NOTE | 2022-11-06 08:54 | MHC.CM.ED ---
Patient remains in overflow ER. Left message with Marianela at [facility] to see if they are able to offer a bed. Waiting for telephone call. [facility] [place] is a male only facility. Referral broadcasted within 50 miles at this time. T/W spoke with Myriam in MRI. Patient was scheduled for 11am MRI. Per Myriam, MRI was cancelled because patient can't have the MRI while being in the ER. Continue to monitor for d/c needs.
[2022-11-06] MEDS: Acetaminophen 325 MG TABLET 650 MG PO (09:45)
[2022-11-06] MEDS: Ferrous Sulfate 300 MG/5 ML LIQUID PO ×2 (09:45→21:42)
[2022-11-06] MEDS: Doxycycline Monohydrate 100 MG CAPSULE PO ×2 (09:46→21:43)
[2022-11-06] MEDS: QUEtiapine Fumarate 50 MG TABLET PO ×3 (09:46→21:43)
[2022-11-06] MEDS: predniSONE 20 MG TABLET 40 MG PO (09:46)
[2022-11-06] MEDS: Fluticasone Propionate 250 MCG BLST.W.DEV 1 PUFF INHALE ×2 (12:29→20:25)
[2022-11-06] MEDS: Aspirin Enteric Coated 81 MG TABLET.DR PO (21:42)
[2022-11-06] MEDS: Montelukast Sodium 10 MG TABLET PO (21:42)
[2022-11-06] MEDS: Pravastatin Sodium 20 MG TABLET PO (21:42)
[2022-11-07 01:24] LABS: Glucose, Whole Blood 132 mg/dL (60-115)
[2022-11-07] MEDS: Omeprazole 20 MG CAPSULE.DR PO ×2 (06:05→06:08)
[2022-11-07] MEDS: Acetaminophen 325 MG TABLET 650 MG PO (06:08)
[2022-11-07 06:31] VITALS: BP 134/65; PULSE 93; RESP 17; TEMP 37; O2SAT 96
[2022-11-07 07:36] VITALS: BP 154/56; PULSE 99; RESP 24; O2SAT 100
[2022-11-07] MEDS: Albuterol/Iprat 2.5/0.5MG 3 ML AMPUL.NEB INHALE ×2 (08:30→19:39)
[2022-11-07] MEDS: Multivitamin TABLET 1 TAB PO (09:08)
[2022-11-07] MEDS: Ferrous Sulfate 300 MG/5 ML LIQUID PO ×2 (09:08→21:39)
[2022-11-07] MEDS: Doxycycline Monohydrate 100 MG CAPSULE PO ×2 (09:10→21:40)
[2022-11-07] MEDS: Thiamine HCL 100 MG TABLET PO (09:10)
[2022-11-07] MEDS: Folic Acid 1 MG TABLET PO (09:10)
[2022-11-07] MEDS: predniSONE 20 MG TABLET 40 MG PO (09:10)
[2022-11-07] MEDS: QUEtiapine Fumarate 50 MG TABLET PO ×3 (09:11→21:40)
[2022-11-07] MEDS: Metoprolol Succinate ER 25 MG TAB.ER.24H PO (09:57)
[2022-11-07 10:44] LABS: Glucose, Whole Blood 90 mg/dL (60-115)
[2022-11-07 16:51] VITALS: BP 161/83; PULSE 84; RESP 20; O2SAT 100
[2022-11-07] MEDS: Lidocaine 4 % Patch ADH..PATCH 1 PATCH TRANSDERMA (17:06)
[2022-11-07 20:31] VITALS: PULSE 84; RESP 20; O2SAT 95
[2022-11-07] MEDS: Fluticasone Propionate 250 MCG BLST.W.DEV 1 PUFF INHALE (20:31)
[2022-11-07 20:59] VITALS: BP 163/74; PULSE 74; RESP 16; TEMP 36.6; O2SAT 98
--- NOTE | 2022-11-07 21:00 | MHC.EDTECH ---
pt had a chicken salad sandwich ,2 apple juice and 2 pudding ,vitals sign taken .
[2022-11-07] MEDS: Aspirin Enteric Coated 81 MG TABLET.DR PO (21:40)
[2022-11-07] MEDS: Montelukast Sodium 10 MG TABLET PO (21:40)
[2022-11-07] MEDS: Pravastatin Sodium 20 MG TABLET PO (21:40)
--- NOTE | 2022-11-07 23:17 | MHC.EDTECH ---
pt had a chicken salad sandwich and 2 orange juice at this times ,said she was hungry .
--- NOTE | 2022-11-08 | MHC.EDTECH ---
0000 rounding done ,pt was inconient of urine ,care given ,bedding change ,warm blanket given .
[2022-11-08] MEDS: Melatonin 3 MG TABLET PO (01:07)
--- NOTE | 2022-11-08 01:37 | MHC.EDTECH ---
pt rang for ice chips .
--- NOTE | 2022-11-08 02:00 | MHC.EDTECH ---
0200 rounding dont ,pt awake .
[2022-11-08 06:00] VITALS: BP 151/79; PULSE 72; RESP 16; TEMP 36.7; O2SAT 97
--- NOTE | 2022-11-08 06:00 | MHC.EDTECH ---
0600 rounding done ,vitals sign taken, pt had an incontinent episode of urine ,bed bath given ,bedding change ,warm blanket given ,also fresh pitcher of water .
[2022-11-08] MEDS: Omeprazole 20 MG CAPSULE.DR PO (06:54)
[2022-11-08] MEDS: Acetaminophen 325 MG TABLET 650 MG PO (06:54)
--- NOTE | 2022-11-08 06:56 | PC.NURSE ---
6:30a- Pt's V/S are stable, pt has a bump on her left right shoulder for x 2 weeks according to pt. Pt reports she has gone to her PCP. Pt meds were administered as order on the NOV. Pt has been clean and provider with a pitch of H2O.
--- NOTE | 2022-11-08 07:26 | PC.NURSE ---
Assumed care of pt. Meal tray provided. Pt asleep resting comfortably.
[2022-11-08] MEDS: Ferrous Sulfate 300 MG/5 ML LIQUID PO ×2 (08:24→20:25)
[2022-11-08] MEDS: Sennosides 8.6 MG TABLET PO (08:25)
[2022-11-08] MEDS: QUEtiapine Fumarate 50 MG TABLET PO ×3 (08:25→20:25)
[2022-11-08] MEDS: Multivitamin TABLET 1 TAB PO (08:25)
[2022-11-08] MEDS: Doxycycline Monohydrate 100 MG CAPSULE PO ×2 (08:25→20:25)
[2022-11-08] MEDS: Thiamine HCL 100 MG TABLET PO (08:25)
[2022-11-08] MEDS: Folic Acid 1 MG TABLET PO (08:26)
[2022-11-08] MEDS: predniSONE 20 MG TABLET 40 MG PO (08:26)
[2022-11-08] MEDS: Albuterol/Iprat 2.5/0.5MG 3 ML AMPUL.NEB INHALE ×5 (08:29→23:24)
[2022-11-08 08:30] VITALS: PULSE 85; RESP 20; O2SAT 94
[2022-11-08] MEDS: Metoprolol Succinate ER 25 MG TAB.ER.24H PO (09:14)
--- NOTE | 2022-11-08 10:37 | PC.NURSE ---
pt incontinent of urine. Cleaned and changed.
[2022-11-08 11:40] VITALS: PULSE 86; RESP 20; O2SAT 95
[2022-11-08 14:39] VITALS: PULSE 87; RESP 20; O2SAT 94
[2022-11-08 15:19] VITALS: BP 139/62; PULSE 89; RESP 18; TEMP 36.7; O2SAT 96
[2022-11-08 20:14] LABS: Glucose, Whole Blood 231 mg/dL (60-115)
[2022-11-08] MEDS: Pravastatin Sodium 20 MG TABLET PO (20:25)
[2022-11-08] MEDS: Montelukast Sodium 10 MG TABLET PO (20:25)
[2022-11-08] MEDS: Aspirin Enteric Coated 81 MG TABLET.DR PO (20:25)
[2022-11-08] MEDS: Fluticasone Propionate 250 MCG BLST.W.DEV 1 PUFF INHALE (20:29)
--- NOTE | 2022-11-08 20:44 | MHC.EDTECH ---
Brought patient fresh ice water.
--- NOTE | 2022-11-08 20:45 | MHC.EDTECH ---
Brought patient a warm blanket.
[2022-11-08 21:07] LABS: Glucose, Whole Blood 224 mg/dL (60-115)
[2022-11-08] MEDS: LORazepam 1 MG TABLET 2 MG PO (22:55)
--- NOTE | 2022-11-08 23:26 | PC.NURSE ---
Pt had an episode of anxiety, after receiving ativan for the anxiety. Pt was walked through breathing techniques and put the pt O2 back on. Pt began to have slight auditory wheezing and requested something to help. A PRN duoneb was started and pt has improved.
[2022-11-09] MEDS: Acetaminophen 325 MG TABLET 650 MG PO ×3 (00:30→18:14)
[2022-11-09 03:14] VITALS: BP 165/81; PULSE 86; RESP 18; TEMP 36.6; O2SAT 100
[2022-11-09 06:00] VITALS: BP 158/76; PULSE 88; RESP 19; TEMP 36.6; O2SAT 99
--- NOTE | 2022-11-09 06:25 | MHC.EDTECH ---
PT given pericare. Pt bed pads changed and purewick replaced. Pt given warm blanket and call jones in reach.
[2022-11-09 06:49] LABS: Glucose, Whole Blood 88 mg/dL (60-115)
--- NOTE | 2022-11-09 07:00 | PC.NURSE ---
Assumed care of patient at this time.
[2022-11-09] MEDS: Folic Acid 1 MG TABLET PO (07:12)
[2022-11-09] MEDS: QUEtiapine Fumarate 50 MG TABLET PO ×3 (07:12→20:04)
[2022-11-09] MEDS: Multivitamin TABLET 1 TAB PO (07:12)
[2022-11-09] MEDS: Doxycycline Monohydrate 100 MG CAPSULE PO ×2 (07:12→20:04)
[2022-11-09] MEDS: predniSONE 20 MG TABLET 40 MG PO (07:12)
[2022-11-09] MEDS: Thiamine HCL 100 MG TABLET PO (07:12)
[2022-11-09] MEDS: Ferrous Sulfate 300 MG/5 ML LIQUID PO ×2 (07:13→20:03)
[2022-11-09] MEDS: Fluticasone Propionate 250 MCG BLST.W.DEV 1 PUFF INHALE (07:18)
[2022-11-09] MEDS: Albuterol/Iprat 2.5/0.5MG 3 ML AMPUL.NEB INHALE ×2 (08:03→20:03)
[2022-11-09 08:04] VITALS: PULSE 67; RESP 18; O2SAT 99
[2022-11-09] MEDS: Metoprolol Succinate ER 25 MG TAB.ER.24H PO (09:06)
[2022-11-09] MEDS: Lidocaine 4 % Patch ADH..PATCH 1 PATCH TRANSDERMA (09:14)
[2022-11-09 12:33] VITALS: BP 131/97; PULSE 85; RESP 16; TEMP 36.3; O2SAT 96
--- NOTE | 2022-11-09 13:38 | MHC.CM.ED ---
Patient remains in ER overflow. No bed offer made. Referral broadcasted within 100 miles of patient's address. Continue to monitor for d/c needs.
[2022-11-09] MEDS: Baclofen 20 MG TABLET PO (15:54)
--- NOTE | 2022-11-09 17:01 | PM.EVENT ---
Event Note Date of Service: 11/09/22 Event Note: patient seen in overflow she is awaiting placement I saw her well for recurrent fluid-filled mass on the left shoulder aspiration had been done in the past she is awaiting for MRI to rule out a ganglion cyst no acute or urgent issues with regards to this at this time I can see her for follow-up in the office Time Spent With Patient Time: Total time managing care of this patient today ____ minutes.
[2022-11-09 18:48] VITALS: BP 151/70; PULSE 94; RESP 20; TEMP 36.7; O2SAT 94
[2022-11-09] MEDS: Aspirin Enteric Coated 81 MG TABLET.DR PO (20:03)
[2022-11-09] MEDS: Montelukast Sodium 10 MG TABLET PO (20:03)
[2022-11-09] MEDS: Pravastatin Sodium 20 MG TABLET PO (20:03)
--- NOTE | 2022-11-09 20:06 | MHC.EDTECH ---
taking over shift new purewick appied and canister empited and new one replaced, jello and pudding was given along with apple juice
[2022-11-09 20:55] VITALS: BP 156/70; PULSE 92; RESP 18; TEMP 36.4; O2SAT 95
[2022-11-09] MEDS: Albuterol Sulfate (0.083%) 2.5 MG/3 ML VIAL.NEB INHALE (21:25)
[2022-11-10] MEDS: diphenhydrAMINE HCL 25 MG CAPSULE 50 MG PO (00:07)
--- NOTE | 2022-11-10 00:10 | PC.NURSE ---
assumed care of patient at 2300 - patient restless on stretcher. continuously asking for food even though patient was previously given multiple snacks. pct informed patient that there is no more food left to give until breakfast in AM. patient asking for something to help her sleep. MD quinteros ordering po jose c. will CTM.
--- NOTE | 2022-11-10 01:27 | MHC.EDTECH ---
pt had the purewick reapplied and she was given a sandwich and juan luis she says she is hungry
[2022-11-10 01:36] VITALS: BP 134/70; PULSE 82; RESP 17; TEMP 36.4; O2SAT 95
--- NOTE | 2022-11-10 01:38 | MHC.EDTECH ---
pt takes her 02 off and puts it back on frequently
[2022-11-10] MEDS: Albuterol Sulfate (0.083%) 2.5 MG/3 ML VIAL.NEB INHALE (04:05)
--- NOTE | 2022-11-10 06:05 | MHC.EDTECH ---
pt yells out every hour saying she has pain, she was redirected to use call jones and not to yell others are sleeping
[2022-11-10 06:08] VITALS: BP 136/81; PULSE 79; RESP 18; TEMP 36.1; O2SAT 95
[2022-11-10] MEDS: Omeprazole 20 MG CAPSULE.DR PO (06:14)
[2022-11-10] MEDS: Acetaminophen 325 MG TABLET 650 MG PO ×2 (06:14→19:20)
[2022-11-10 07:43] LABS: Glucose, Whole Blood 116 mg/dL (60-115)
--- NOTE | 2022-11-10 07:44 | PC.NURSE ---
Pt awake, eating bkfst. C/O leg pain.
[2022-11-10] MEDS: Doxycycline Monohydrate 100 MG CAPSULE PO ×2 (08:59→21:21)
[2022-11-10] MEDS: Multivitamin TABLET 1 TAB PO (08:59)
[2022-11-10] MEDS: Folic Acid 1 MG TABLET PO (08:59)
[2022-11-10] MEDS: Thiamine HCL 100 MG TABLET PO (08:59)
[2022-11-10] MEDS: QUEtiapine Fumarate 50 MG TABLET PO ×3 (08:59→21:20)
[2022-11-10] MEDS: Ferrous Sulfate 300 MG/5 ML LIQUID PO ×2 (09:00→21:20)
[2022-11-10] MEDS: Metoprolol Succinate ER 25 MG TAB.ER.24H PO (09:00)
[2022-11-10] MEDS: Albuterol/Iprat 2.5/0.5MG 3 ML AMPUL.NEB INHALE ×2 (09:35→20:20)
[2022-11-10 09:36] VITALS: PULSE 77; RESP 20; O2SAT 99
[2022-11-10] MEDS: Fluticasone Propionate 250 MCG BLST.W.DEV 1 PUFF INHALE (09:36)
[2022-11-10] MEDS: Albuterol Sulfate 90 MCG 8 GM INHALER 2 PUFF INHALE (10:26)
--- NOTE | 2022-11-10 11:20 | PC.NURSE ---
Addendum entered by Fartun Mujica 11/10/22 12:50: note by REAGAN Willoughby Original Note: assumed care of pt at 1100, pt resting quietly, asked for sandwich.
--- NOTE | 2022-11-10 12:50 | PC.NURSE ---
pt linens wet, cleaned and repositioned in bed.
[2022-11-10 14:13] VITALS: BP 137/61; PULSE 84; RESP 16; TEMP 36.7; O2SAT 98
--- NOTE | 2022-11-10 14:23 | PC.NURSE ---
pt alert, oriented to person/place, pt continues to request additional food, pt reminded that she is on a diabetic diet, calm and cooperative with care, vss, pt requesting ice chips.
--- NOTE | 2022-11-10 15:55 | PC.NURSE ---
pt assisted with clean linens while she used commode, medicated per provider order.
[2022-11-10] MEDS: Baclofen 20 MG TABLET PO (16:14)
[2022-11-10] MEDS: Lidocaine 4 % Patch ADH..PATCH 1 PATCH TRANSDERMA (16:15)
--- NOTE | 2022-11-10 16:23 | PC.NURSE ---
pt reporting back pain, medicated w PRN medication/lidocaine patch applied to R shoulder.
--- NOTE | 2022-11-10 19:39 | PC.NURSE ---
This nurse assume pt's care: Pt's V/S are stable, pt was medicated per MAR d/t chromic pain. Pt is a/o x 4, pt appears to be calm and cooperative.
[2022-11-10 20:21] VITALS: PULSE 84; RESP 16; O2SAT 98
[2022-11-10] MEDS: Aspirin Enteric Coated 81 MG TABLET.DR PO (21:21)
[2022-11-10] MEDS: Montelukast Sodium 10 MG TABLET PO (21:21)
[2022-11-10] MEDS: Pravastatin Sodium 20 MG TABLET PO (21:21)
--- NOTE | 2022-11-10 21:22 | PC.NURSE ---
Pt's V/S are stable, pt has been changed/clean, and medicated per MAR.
[2022-11-10 22:19] VITALS: BP 154/69; PULSE 89; RESP 20; O2SAT 96
[2022-11-10] MEDS: Melatonin 3 MG TABLET 6 MG PO (23:09)
[2022-11-10 23:38] LABS: Glucose, Whole Blood 147 mg/dL (60-115)
[2022-11-11] MEDS: Omeprazole 20 MG CAPSULE.DR PO (06:27)
--- NOTE | 2022-11-11 06:29 | MHC.EDTECH ---
PT 1x assisted to bedside commode. Pt 1x assisted back to bed. warm blanket given/ call jones in reach
[2022-11-11 06:30] VITALS: BP 145/58; PULSE 74; RESP 15; TEMP 36.6; O2SAT 97
--- NOTE | 2022-11-11 06:33 | PC.NURSE ---
Pt's BP is slightly on the low side, we will continue to monitor. Pt meds were given in addition to melatonin 6mg as order due to pt was experiencing insomnia.
--- NOTE | 2022-11-11 06:39 | PC.NURSE ---
Pt's hypertensive at based line. Pt meds were given as order by the provider, in addition to melatonin 6 mg due to pt was experiencing insomnia.
--- NOTE | 2022-11-11 09:25 | MHC.CM.ED ---
Patient remains in ER overflow unit. Received telephone call from patient's sig other/HCP, Juanjo. Juanjo states patient has been calling him stating she is coming home and her sister yesterday. Patient's sister over 10 years ago. Juanjo still doesn't feel he can safely care for her at home. Juanjo still requesting placement. Juanjo aware placement has not been found at this time. Continue to monitor for d/c needs.
--- NOTE | 2022-11-11 09:40 | MHC.EDTECH ---
Cleaned pt and removed brief. Patient was placed on 2 chucks in case on incontinence.
[2022-11-11] MEDS: Ferrous Sulfate 300 MG/5 ML LIQUID PO ×2 (10:05→21:28)
[2022-11-11] MEDS: Acetaminophen 325 MG TABLET 650 MG PO (10:05)
[2022-11-11] MEDS: Thiamine HCL 100 MG TABLET PO (10:06)
[2022-11-11] MEDS: Multivitamin TABLET 1 TAB PO (10:06)
[2022-11-11] MEDS: QUEtiapine Fumarate 50 MG TABLET PO ×3 (10:06→21:29)
[2022-11-11] MEDS: Metoprolol Succinate ER 25 MG TAB.ER.24H PO (10:06)
[2022-11-11] MEDS: Doxycycline Monohydrate 100 MG CAPSULE PO ×2 (10:06→21:29)
[2022-11-11] MEDS: Baclofen 20 MG TABLET PO (17:25)
--- NOTE | 2022-11-11 18:30 | PC.NURSE ---
pt has been requesting help and items for the entire shift. pt has been very vocal and disrupting pts, even when pt needs were met pt continued to request more help and items.
[2022-11-11 18:49] VITALS: BP 136/63; PULSE 91; RESP 20; TEMP 36.3; O2SAT 97
[2022-11-11] MEDS: Fluticasone Propionate 250 MCG BLST.W.DEV 1 PUFF INHALE (20:09)
[2022-11-11 20:10] VITALS: PULSE 92; RESP 20; O2SAT 98
[2022-11-11] MEDS: Albuterol/Iprat 2.5/0.5MG 3 ML AMPUL.NEB INHALE (20:10)
[2022-11-11] MEDS: Pravastatin Sodium 20 MG TABLET PO (21:29)
[2022-11-11] MEDS: Aspirin Enteric Coated 81 MG TABLET.DR PO (21:29)
[2022-11-11] MEDS: Montelukast Sodium 10 MG TABLET PO (21:29)
[2022-11-11 22:00] VITALS: BP 148/64; PULSE 90; RESP 18; TEMP 36.6; O2SAT 98
[2022-11-11] MEDS: Melatonin 3 MG TABLET 12 MG PO (22:18)
--- NOTE | 2022-11-11 22:23 | PC.NURSE ---
Pt's hypertensive its her based line. Pt's meds were given as order by the provider. pt is a/o x3. Pt was given melatonin PRN for insomnia. Pt was changed and pullups was put on due to urinary and bowel incontinence.
[2022-11-12] MEDS: Omeprazole 20 MG CAPSULE.DR PO (06:23)
[2022-11-12] MEDS: Acetaminophen 325 MG TABLET 650 MG PO ×2 (06:24→19:29)
--- NOTE | 2022-11-12 06:24 | PC.NURSE ---
Pt's hypertensive, provider notified. Pt meds were administered as order by the provider. Pt's bed alarm is on, commode at bedside and attire changed. Pt woke up throughout the night frequently.
[2022-11-12 06:32] VITALS: BP 165/87; PULSE 83; RESP 17; TEMP 36.4; O2SAT 97
[2022-11-12] MEDS: Ferrous Sulfate 300 MG/5 ML LIQUID PO ×2 (07:54→20:43)
[2022-11-12] MEDS: Folic Acid 1 MG TABLET PO (07:54)
[2022-11-12] MEDS: Thiamine HCL 100 MG TABLET PO (07:54)
[2022-11-12] MEDS: QUEtiapine Fumarate 50 MG TABLET PO ×3 (07:54→20:42)
[2022-11-12] MEDS: Multivitamin TABLET 1 TAB PO (07:55)
[2022-11-12] MEDS: Doxycycline Monohydrate 100 MG CAPSULE PO ×2 (07:56→20:42)
[2022-11-12 08:02] VITALS: BP 156/76; PULSE 81; RESP 18; O2SAT 100
[2022-11-12] MEDS: Metoprolol Succinate ER 25 MG TAB.ER.24H PO (08:30)
--- NOTE | 2022-11-12 11:00 | PC.NURSE ---
THIS RN ASSUMED CARE OF THIS PT AT 0700. PT REPORTS 07/06 CHRONIC BODY PAIN, SHE REPORTS THAT NOTHING HELPS IT. VSS. PT ASSISTED TO AND FROM BEDSIDE COMMODE. MEDS GIVEN DOCUMENTED. UNABLE TO SCAN BARCODE FOR DOXYCYCLINE 100 mg CAPSULE, PHARMACIST DONNIE MORAN.
--- NOTE | 2022-11-12 11:11 | MHC.EDTECH ---
Assisted patient from bed to cammode. Changed patients bedding and gown. Cleaned patient and assisted back to bed. Johanna Davidson
[2022-11-12] MEDS: Lidocaine 4 % Patch ADH..PATCH 1 PATCH TRANSDERMA (14:18)
[2022-11-12 15:14] VITALS: BP 123/43; PULSE 82; O2SAT 98
[2022-11-12 15:37] VITALS: BP 150/64
--- NOTE | 2022-11-12 19:17 | PC.NURSE ---
Per report from previous shift patient developed several minor nose bleeds from picking her nose. Patient instructed avoid picking and blowing her nose at this time to facilitate healing. Patient verbalized understanding.
[2022-11-12] MEDS: Melatonin 3 MG TABLET 12 MG PO (19:29)
[2022-11-12] MEDS: Aspirin Enteric Coated 81 MG TABLET.DR PO (20:43)
[2022-11-12] MEDS: Montelukast Sodium 10 MG TABLET PO (20:43)
[2022-11-12] MEDS: Pravastatin Sodium 20 MG TABLET PO (20:43)
[2022-11-12] MEDS: LORazepam 1 MG TABLET PO (21:59)
[2022-11-12 23:30] VITALS: BP 153/70; PULSE 93; RESP 18; TEMP 36.6; O2SAT 98
[2022-11-12] MEDS: Baclofen 20 MG TABLET PO (23:55)
--- NOTE | 2022-11-13 00:07 | PC.NURSE ---
Belia had 2 episodes of nose bleed with small amount of bright red blood d/t putting her finger inside her right nare and trying to scratch her nose. Patient is forgetful. She requires frequent reminders not to blow her nose or pick inside her nose. Nose clamp was placed within patient's reach, patient educated in use. Patient has been asking for multiple items, screaming being restless and agitated at times. Patient was medicated with Melatonin, Tylenol, Baclofen, and Lorazepam, however continues to complain of inability to fall asleep.
--- NOTE | 2022-11-13 00:13 | MHC.EDTECH ---
pt assisted to bedside commode. pt back to bed and resting comfortably at this time.
[2022-11-13] MEDS: traZODone HCL 50 MG TABLET PO ×2 (02:04→20:42)
[2022-11-13 04:07] VITALS: BP 149/72; PULSE 87; RESP 18; TEMP 36.7; O2SAT 98
--- NOTE | 2022-11-13 05:26 | MHC.EDTECH ---
pt up to bedside commode with one assist. pt back to bed, resting comfortably at this time.
[2022-11-13 08:15] VITALS: BP 162/87; PULSE 95; RESP 20; O2SAT 99
[2022-11-13] MEDS: Lidocaine 4 % Patch ADH..PATCH 1 PATCH TRANSDERMA (08:18)
[2022-11-13] MEDS: Ferrous Sulfate 300 MG/5 ML LIQUID PO ×2 (08:20→20:42)
[2022-11-13] MEDS: Acetaminophen 325 MG TABLET 650 MG PO ×2 (08:23→20:42)
[2022-11-13] MEDS: Omeprazole 20 MG CAPSULE.DR PO (08:23)
[2022-11-13] MEDS: Multivitamin TABLET 1 TAB PO (08:23)
[2022-11-13] MEDS: Doxycycline Monohydrate 100 MG CAPSULE PO ×2 (08:23→20:42)
[2022-11-13] MEDS: QUEtiapine Fumarate 50 MG TABLET PO ×3 (08:24→20:42)
[2022-11-13] MEDS: Folic Acid 1 MG TABLET PO (08:24)
[2022-11-13] MEDS: Thiamine HCL 100 MG TABLET PO (08:24)
[2022-11-13] MEDS: Acetaminophen 325 MG TABLET PO (10:45)
[2022-11-13] MEDS: Metoprolol Succinate ER 25 MG TAB.ER.24H PO (10:45)
[2022-11-13 14:23] VITALS: BP 119/38; PULSE 95; RESP 17; TEMP 36.6; O2SAT 97
--- NOTE | 2022-11-13 16:58 | PC.NURSE ---
PT ASKING FOR MULTIPLE ITEMS. SCREAMS AND GETS UPSET WITH STAFF WHEN ENCOURAGED TO DO MUCH SHE CAN ON HER OWN. ASKED STAFF TO FEED HER LUNCH, STATED I CANT DO IT . VISITED, STATED TO THIS RN I WANT HER TO TRY TO DO THINGS HERSELF BECAUSE IT'S GETTING HARDER FOR ME PT ASSISTED TO BEDSIDE COMMODE MULTIPLE TIMES. INCONTINENT CARE AND COMPLETE BED CHANGE DONE X2. LG BM X1. VSS, O2 sat 96-98% R/A, MEDS GIVEN DOCUMENTED. NO APPARENT DISTRESS NOTED.
[2022-11-13 17:01] VITALS: BP 123/53; PULSE 84; RESP 19; O2SAT 98
[2022-11-13 20:21] VITALS: BP 137/62; PULSE 98; RESP 17; TEMP 36.1; O2SAT 96
[2022-11-13] MEDS: Fluticasone Propionate 250 MCG BLST.W.DEV 1 PUFF INHALE (20:30)
[2022-11-13] MEDS: Aspirin Enteric Coated 81 MG TABLET.DR PO (20:42)
[2022-11-13] MEDS: Montelukast Sodium 10 MG TABLET PO (20:42)
[2022-11-13] MEDS: Pravastatin Sodium 20 MG TABLET PO (20:42)
--- NOTE | 2022-11-13 23:43 | PC.NURSE ---
This journalists and other writers assumed care of this Pt at 1900. Pt A&Ox3, reports chronic pain to L shoulder and bilateral legs. Meds given as documented. Pt states I can't do it easily redirected and encouraged to try her best, Pt able to ambulate to bedside commode with staff stand by assist. Snacks provided.
[2022-11-14] MEDS: Melatonin 3 MG TABLET 12 MG PO ×2 (01:52→20:07)
[2022-11-14] MEDS: Baclofen 20 MG TABLET PO (03:51)
[2022-11-14] MEDS: Omeprazole 20 MG CAPSULE.DR PO (06:03)
[2022-11-14 06:06] VITALS: BP 147/54; PULSE 89; RESP 17; TEMP 37; O2SAT 94
--- NOTE | 2022-11-14 08:01 | MHC.EDTECH ---
Patient wash and clean , bed change , patient reposition in bed now relaxing and watching tv.
--- NOTE | 2022-11-14 08:01 | PC.NURSE ---
pt minimal assit to comode. linen changed. pt ate breakfast. awaiting meds from pharmacy. no changes in plan of care at this time pt awaiting placement.
[2022-11-14] MEDS: Multivitamin TABLET 1 TAB PO (08:49)
[2022-11-14] MEDS: Thiamine HCL 100 MG TABLET PO (08:49)
[2022-11-14] MEDS: Metoprolol Succinate ER 25 MG TAB.ER.24H PO (08:49)
[2022-11-14] MEDS: Folic Acid 1 MG TABLET PO (08:49)
[2022-11-14] MEDS: QUEtiapine Fumarate 50 MG TABLET PO ×3 (08:49→20:10)
[2022-11-14] MEDS: Ferrous Sulfate 300 MG/5 ML LIQUID PO ×2 (08:50→20:05)
[2022-11-14] MEDS: Doxycycline Monohydrate 100 MG CAPSULE PO ×2 (08:50→20:09)
[2022-11-14] MEDS: Fluticasone Propionate 250 MCG BLST.W.DEV 1 PUFF INHALE (09:01)
[2022-11-14 09:02] VITALS: PULSE 89; RESP 17; O2SAT 95
[2022-11-14 14:48] VITALS: BP 119/53; PULSE 88; RESP 16; O2SAT 98
--- NOTE | 2022-11-14 18:43 | PC.NURSE ---
pt ate 100% of dinner, reports bloody nose states this happens when the air is dry. given tissues and bleeding in controlled.
[2022-11-14] MEDS: Montelukast Sodium 10 MG TABLET PO (20:05)
[2022-11-14] MEDS: Acetaminophen 325 MG TABLET 650 MG PO (20:06)
[2022-11-14] MEDS: Pravastatin Sodium 20 MG TABLET PO (20:06)
[2022-11-14] MEDS: Aspirin Enteric Coated 81 MG TABLET.DR PO (20:06)
[2022-11-14] MEDS: traZODone HCL 50 MG TABLET PO (20:08)
--- NOTE | 2022-11-14 21:15 | MHC.EDTECH ---
pt is in bed. nurse gave night meds. pt continues to ask for more items after needs are met. pt has been needing frequent redirections and prompting to do things independently.
[2022-11-14 22:55] VITALS: BP 114/61; PULSE 84; RESP 18; O2SAT 99
[2022-11-15] MEDS: Baclofen 20 MG TABLET PO ×2 (00:15→19:41)
[2022-11-15] MEDS: Omeprazole 20 MG CAPSULE.DR PO (05:34)
[2022-11-15] MEDS: Acetaminophen 325 MG TABLET 650 MG PO ×2 (05:34→15:11)
[2022-11-15 06:30] VITALS: BP 147/60; RESP 20; TEMP 36.9; O2SAT 98
--- NOTE | 2022-11-15 06:59 | PC.NURSE ---
Pt with small amount nosebleeds overnight X3, one time started with straining trying to get OOB. right nare.
[2022-11-15] MEDS: Thiamine HCL 100 MG TABLET PO (08:12)
[2022-11-15] MEDS: Folic Acid 1 MG TABLET PO (08:12)
[2022-11-15] MEDS: QUEtiapine Fumarate 50 MG TABLET PO ×3 (08:12→19:42)
[2022-11-15] MEDS: Ferrous Sulfate 300 MG/5 ML LIQUID PO ×2 (08:12→19:41)
[2022-11-15] MEDS: Multivitamin TABLET 1 TAB PO (08:12)
[2022-11-15] MEDS: Metoprolol Succinate ER 25 MG TAB.ER.24H PO (08:12)
[2022-11-15] MEDS: Doxycycline Monohydrate 100 MG CAPSULE PO (08:13)
--- NOTE | 2022-11-15 14:06 | PC.NURSE ---
pt for a good portion of the morning shift had multiple bloody nose from the right nares, the bleeding did not last long and did resolve each time after using a nose clip. Kahlil RUBBER WASHER is aware. will continue to monitor for the rest of shift. Amount of bleeding is predominantly small amounts of bright red blood. while laying down earlier she did cough up some blood with small clots noted.
[2022-11-15 14:17] VITALS: BP 139/60; PULSE 84; RESP 14; TEMP 36.7; O2SAT 100
--- NOTE | 2022-11-15 18:09 | PC.NURSE ---
pt has not had a bloody nose for at least 4 hours.
[2022-11-15 19:33] VITALS: BP 141/58; PULSE 88; TEMP 36.7; O2SAT 98
[2022-11-15] MEDS: Lidocaine 4 % Patch ADH..PATCH 1 PATCH TRANSDERMA (19:39)
[2022-11-15] MEDS: Montelukast Sodium 10 MG TABLET PO (19:41)
[2022-11-15] MEDS: Aspirin Enteric Coated 81 MG TABLET.DR PO (19:41)
[2022-11-15] MEDS: traZODone HCL 50 MG TABLET PO (19:41)
[2022-11-15] MEDS: Pravastatin Sodium 20 MG TABLET PO (19:41)
[2022-11-15] MEDS: Melatonin 3 MG TABLET 12 MG PO (19:42)
--- NOTE | 2022-11-15 19:47 | PC.NURSE ---
Pt GAN to person and place, tearful requesting pain medicine for L shoulder mass area reports pain is 6/10. Pt medicated per Nov.
--- NOTE | 2022-11-15 20:03 | PC.NURSE ---
assisted patient into a clean hospital gown as pt gown was saturated with juice.
[2022-11-15] MEDS: Fluticasone Propionate 250 MCG BLST.W.DEV 1 PUFF INHALE (22:27)
[2022-11-15] MEDS: Oxymetazoline HCl 0.05 % Nasal 15 ML SPRAY 2 SPRAY NOSTRIL-B (22:32)
[2022-11-16 00:22] VITALS: BP 145/72; PULSE 83; RESP 16; TEMP 36.6; O2SAT 98
[2022-11-16 01:57] LABS: Glucose, Whole Blood 120 mg/dL (60-115)
--- NOTE | 2022-11-16 02:19 | MHC.EDTECH ---
PT could not get to commode in time, bed soiled with urine. Pt 1x assisted to bedside commode. Pt 1x assisted with pericare. Pt bed linen/gown changed. Pt given warm blankets and call jones in reach
[2022-11-16] MEDS: traMADoL HCL 50 MG TABLET PO (02:40)
--- NOTE | 2022-11-16 02:43 | PC.NURSE ---
Pt requesting pain med no available pain meds at this time. Pt tearful and moaning due to pain. Rn consulted with Dr. Blanco who agreed to prescribe tramadol 50 mg po. Pt medicated per Nov. Pt resting quietly lying of left side of body.
[2022-11-16] MEDS: Acetaminophen 325 MG TABLET 650 MG PO (06:27)
[2022-11-16] MEDS: Omeprazole 20 MG CAPSULE.DR PO (06:29)
[2022-11-16 06:33] VITALS: BP 134/59; PULSE 80; RESP 15; TEMP 36.4; O2SAT 95
[2022-11-16 06:35] LABS: Glucose, Whole Blood 134 mg/dL (60-115)
[2022-11-16] MEDS: Oxymetazoline HCl 0.05 % Nasal 15 ML SPRAY 2 SPRAY NOSTRIL-B ×2 (10:05→21:02)
[2022-11-16] MEDS: Ferrous Sulfate 300 MG/5 ML LIQUID PO ×2 (10:06→20:25)
[2022-11-16] MEDS: Folic Acid 1 MG TABLET PO (10:06)
[2022-11-16] MEDS: Multivitamin TABLET 1 TAB PO (10:07)
[2022-11-16] MEDS: Thiamine HCL 100 MG TABLET PO (10:08)
[2022-11-16] MEDS: QUEtiapine Fumarate 50 MG TABLET PO ×3 (10:08→20:25)
[2022-11-16] MEDS: Metoprolol Succinate ER 25 MG TAB.ER.24H PO (10:08)
--- NOTE | 2022-11-16 13:45 | MHC.EDTECH ---
patient wash and clean , reposition in bed ,
[2022-11-16 14:11] VITALS: BP 151/91; PULSE 79; RESP 12; O2SAT 96
[2022-11-16] MEDS: Lidocaine 4 % Patch ADH..PATCH 1 PATCH TRANSDERMA (14:15)
[2022-11-16] MEDS: Ibuprofen 400 MG TABLET PO (14:58)
[2022-11-16 16:06] LABS: MANUAL DIFF FLAG NO
[2022-11-16 16:08] LABS: Basophils Percent Auto 0.4 % (0-2); Eosinophils Absolute Auto 0.1 X10*3/uL (0.0-0.4); Eosinophils Percent Auto 1.4 % (0-4); Hematocrit 25.8 % (37.0-47.0); Hemoglobin 7.8 g/dl (12.0-16.0); Imm Gran Abs Auto 0.23 X10*3/uL (0.00-0.03); Imm Gran Pct Auto 3.3 % (0.0-0.4); Lymphocytes Absolute Auto 2.2 X10*3/uL (1.2-4.9); Lymphocytes Percent Auto 32.4 % (20-40); Mean Corpuscular HGB Conc 30.2 g/dl (31.0-35.0); Mean Corpuscular Hemoglobin 24.1 pg (27.0-33.0); Mean Corpuscular Volume 79.6 fL (80.0-98.0); Mean Platelet Volume 8.9 fL (9.4-12.3); Monocytes Percent Auto 14.2 % (2-11); Neutrophils Absolute Auto 3.3 x10*3/uL (2.0-8.3); Neutrophils Percent Auto 48.3 % (45-73); Platelet Count 363 X10*3/uL (160-400); Red Blood Count 3.24 X10*6/uL (4.20-5.50); Red Cell Distribution Width 22.7 % (11.0-16.0); White Blood Count 6.9 X10*3/uL (4.8-10.8)
[2022-11-16 16:28] LABS: Anion Gap 14 (12-20); Blood Urea Nitrogen 42 mg/dL (9-16); Calcium 8.6 mg/dL (8.4-10.2); Carbon Dioxide 27 mmol/L (22-29); Chloride 100 mmol/L (96-108); Creatinine Clr Calc Pharmacy 51.7; Estimated Glomerular Filt Rate 44; Glucose Random 107 mg/dL (60-115); Sodium 135 mmol/L (135-145)
--- NOTE | 2022-11-16 16:34 | MHC.EDTECH ---
Patient care and changed bed pads. Nurse assist with a boost.
[2022-11-16] MEDS: Sodium Zirconium Cyclosilicate 10 GM POWD.PACK PO (16:50)
--- NOTE | 2022-11-16 16:56 | PC.NURSE ---
Patients K-6.0 notified Brittney VARGAS ordered Lokelma and Albuterol treatement. Placed on alarm security or surveillance monitor tele: Sinus rythym 90's awaiting respiratory therapy for treatment. (currently with a conscious sedation) 12 lead EKG ordered and labs.
--- NOTE | 2022-11-16 17:14 | ECG_ITS ---
Test Reason : HIGH POTASSIUM Blood Pressure : / mmHG Vent. Rate : 083 BPM Atrial Rate : 083 BPM P-R Int : 142 ms QRS Dur : 080 ms QT Int : 382 ms P-R-T Axes : 039 -03 049 degrees QTc Int : 448 ms Normal sinus rhythm Nonspecific T wave abnormality Borderline ECG When compared with ECG of 07-SEP-2022 08:26, Premature atrial complexes are no longer Present Referred By: Eri Johnson Electronically Signed By:LYNDA GLEZ
[2022-11-16 17:18] LABS: Magnesium 2.2 mg/dL (1.6-2.6)
[2022-11-16] MEDS: Albuterol Sulfate 2.5 MG/0.5 ML VIAL.NEB 10 MG INHALE (17:22)
[2022-11-16] MEDS: Albuterol Sulfate (0.083%) 2.5 MG/3 ML VIAL.NEB INHALE (17:22)
[2022-11-16 17:23] VITALS: PULSE 92; RESP 19
--- NOTE | 2022-11-16 17:47 | PC.NURSE ---
Labs are late because it needs to be drawn 2 hours after Lokelma. Will draw at 7pm.
--- NOTE | 2022-11-16 19:36 | PC.NURSE ---
Blood work drawn and sent to lab.
[2022-11-16] MEDS: Montelukast Sodium 10 MG TABLET PO (20:25)
[2022-11-16] MEDS: traZODone HCL 50 MG TABLET PO (20:25)
[2022-11-16] MEDS: Aspirin Enteric Coated 81 MG TABLET.DR PO (20:25)
[2022-11-16] MEDS: Pravastatin Sodium 20 MG TABLET PO (20:25)
[2022-11-16 20:39] VITALS: PULSE 92; RESP 19
[2022-11-16] MEDS: Fluticasone Propionate 250 MCG BLST.W.DEV 1 PUFF INHALE (20:39)
[2022-11-16 21:19] LABS: Anion Gap 13 (12-20); Blood Urea Nitrogen 44 mg/dL (9-16); Calcium 8.5 mg/dL (8.4-10.2); Carbon Dioxide 27 mmol/L (22-29); Chloride 99 mmol/L (96-108); Creatinine Clr Calc Pharmacy 45.6; Estimated Glomerular Filt Rate 38; Glucose Random 155 mg/dL (60-115); Potassium 5.3 mmol/L (3.3-5.1); Sodium 134 mmol/L (135-145)
[2022-11-16] MEDS: Melatonin 3 MG TABLET 12 MG PO (23:47)
--- NOTE | 2022-11-17 00:10 | MHC.EDTECH ---
i resumed care 11-7 shift, vitals were taken , pt as a bloody noise pt was told to not blow her nose , nurse is aware of her nose bleed
[2022-11-17 00:11] VITALS: BP 143/71; PULSE 81; RESP 17; TEMP 36.3; O2SAT 95
--- NOTE | 2022-11-17 04:30 | PC.NURSE ---
Pt pivoting to bedside commode. Reports nosebleed, instructed to use nosebleed clip, Pt continues to blow nose and stick finger up bleeding nostril. New gown and bed sheets given, will CTM.
[2022-11-17] MEDS: Acetaminophen 325 MG TABLET 650 MG PO ×2 (05:31→20:16)
[2022-11-17] MEDS: Omeprazole 20 MG CAPSULE.DR PO (05:32)
--- NOTE | 2022-11-17 06:20 | PC.NURSE ---
Pt nose bleeding again after being controlled. Pt continue to blow nose on blankets and hospital gown, taking nosebleed clip off and not leaving on as instructed.
[2022-11-17 07:41] VITALS: BP 140/58; PULSE 80; RESP 16; TEMP 36.6; O2SAT 98
[2022-11-17] MEDS: Thiamine HCL 100 MG TABLET PO (07:54)
[2022-11-17] MEDS: Folic Acid 1 MG TABLET PO (07:54)
[2022-11-17] MEDS: Ferrous Sulfate 300 MG/5 ML LIQUID PO ×2 (07:54→20:17)
[2022-11-17] MEDS: Multivitamin TABLET 1 TAB PO (07:54)
[2022-11-17] MEDS: Metoprolol Succinate ER 25 MG TAB.ER.24H PO (07:55)
[2022-11-17] MEDS: QUEtiapine Fumarate 50 MG TABLET PO ×3 (07:55→20:17)
[2022-11-17] MEDS: Ibuprofen 400 MG TABLET PO ×2 (07:55→16:26)
[2022-11-17 08:36] VITALS: PULSE 94; RESP 20; O2SAT 98
[2022-11-17] MEDS: Fluticasone Propionate 250 MCG BLST.W.DEV 1 PUFF INHALE ×2 (08:36→21:12)
--- NOTE | 2022-11-17 08:54 | PC.RT ---
pt refuses all rt treatments unless she calls.
[2022-11-17] MEDS: Oxymetazoline HCl 0.05 % Nasal 15 ML SPRAY 2 SPRAY NOSTRIL-B (12:09)
[2022-11-17] MEDS: Silver Nitrate Applicator STICK..EA. 2 APPL TOPICAL (12:10)
--- NOTE | 2022-11-17 16:03 | MHC.CM.ED ---
CM received a telephone call from liaison at [facility]. They have a bed and staff will review clinicals and be in touch. Will wait for bed offer and then speak with invoked HCP Juanjo Metzger. CM following for discharge planning.
[2022-11-17 19:48] VITALS: BP 184/74; PULSE 82; RESP 20; TEMP 37; O2SAT 96
[2022-11-17] MEDS: Montelukast Sodium 10 MG TABLET PO (20:17)
[2022-11-17] MEDS: traZODone HCL 50 MG TABLET PO (20:17)
[2022-11-17] MEDS: Aspirin Enteric Coated 81 MG TABLET.DR PO (20:17)
[2022-11-17] MEDS: Pravastatin Sodium 20 MG TABLET PO (20:17)
[2022-11-17 21:13] VITALS: PULSE 82; RESP 20
[2022-11-17] MEDS: Melatonin 3 MG TABLET 12 MG PO (22:41)
--- NOTE | 2022-11-17 22:44 | PC.NURSE ---
pt reports difficulty sleeping, requested medication to help sleep. pt medicated according to mar
--- NOTE | 2022-11-18 00:36 | PC.NURSE ---
pt rang call karen stating she was incontinent of urine. this rn and streaming media specialist changed bed linens and pt's brief at this time. pt boosted and repositioned in bed at this time. pt reports no new needs at this time
[2022-11-18 03:37] VITALS: BP 130/54; PULSE 83; RESP 19; TEMP 36.3; O2SAT 96
[2022-11-18] MEDS: Ibuprofen 400 MG TABLET PO ×2 (03:40→10:00)
[2022-11-18 06:00] VITALS: BP 144/60; PULSE 87; RESP 18; TEMP 36.4; O2SAT 98
[2022-11-18] MEDS: Omeprazole 20 MG CAPSULE.DR PO (06:10)
--- NOTE | 2022-11-18 06:12 | PC.NURSE ---
pt rang call jones, pt showed this rn bleeding from R nare. pt refused to give this rn wash cloth that was being used. pt changed into new gown at this time and nasal clamp put in place. this rn instructed pt to leave nasal clamp in place and not to pick or blow nose. pt became aggitated with this rn while repositioning pt back to bed. this rn attempted to place yg pad under pt, pt refused pad. pt encouraged to boost self up in bed. pt became tearful and called family member at this time. pt boosted self up in bed. pt medicated according to aixa
--- NOTE | 2022-11-18 06:17 | PC.NURSE ---
pt removed nasal clamp to blow nose this rn instructed pt on the importance of leaving nasal clamp in place and to avoid picking and blowing nose
[2022-11-18] MEDS: Folic Acid 1 MG TABLET PO (07:44)
[2022-11-18] MEDS: Ferrous Sulfate 300 MG/5 ML LIQUID PO (07:44)
[2022-11-18] MEDS: Thiamine HCL 100 MG TABLET PO (07:44)
[2022-11-18] MEDS: Multivitamin TABLET 1 TAB PO (07:44)
[2022-11-18] MEDS: QUEtiapine Fumarate 50 MG TABLET PO ×2 (07:44→15:14)
[2022-11-18] MEDS: Metoprolol Succinate ER 25 MG TAB.ER.24H PO (07:46)
--- NOTE | 2022-11-18 07:59 | PC.NURSE ---
Patient alert and oreinted x3. Patient reports Left shoulder pain. Pain meds to be given per EMAR. Patient denies SOB or chest pain. Nose clamp currently removed, no bleeding noted. OOB with assist to commode. VSS. All needs met at this time.
--- NOTE | 2022-11-18 09:18 | MHC.CM.PN ---
Addendum entered by Avani Faria RN 11/18/22 09:20: PER REVIEW OF PREVIOUS CM NOTE, [facility] FOR SERVICES. REFERRALS TO BE PLACED. Original Note: PER CONVERSATION WITH HCP/SPOUSE AND PATIENT, PLAN IS NOW HOME. MIKO ASKS THAT PATIENT DOES NOT GET PLACED ANYWHERE THIS FOUNDER CHAIRMAN AND CHIEF CREATIVE OFFICER TO ARRANGE FOR TRANSPORT HOME WHEN DC. COLEEN STATES THAT A NURSE DOES COME INTO THE HOME DAILY BUT HE DOES NOT KNOW THE AGENCY. T/W TO REVIEW NOTES AND POSSIBLY SEND CLINICALS AND PLAN FOR DC. RN AWARE
[2022-11-18] MEDS: Acetaminophen 325 MG TABLET 650 MG PO (10:00)
[2022-11-18] MEDS: Lidocaine 4 % Patch ADH..PATCH 1 PATCH TRANSDERMA (12:16)
--- NOTE | 2022-11-18 12:56 | PC.NURSE ---
THIS RN ASSUMED CARE OF THIS PT AT 1100. PT C/O L SHOULDER PAIN, LIDOCAINE PATCH APPLIED DOCUMENTED. EFFECTIVENESS PENDING.
[2022-11-18 13:40] VITALS: BP 149/71; PULSE 84; RESP 18; TEMP 36.4; O2SAT 98
--- NOTE | 2022-11-18 14:47 | MHC.CM.ED ---
[facility] will not accept patient. State they d/c patient from service on 11/09. Waiting to hear from [facility] and [facility].
--- NOTE | 2022-11-18 16:00 | MHC.EDTECH ---
THIS PCT ASSUMED CARE OF PT AT 1500 ,ROUNDING DONE ,VITALS SIGN TAKEN ,PT IN [place] ,DANCING HAPPY SHE GOING HOME .
[2022-11-18 16:24] VITALS: BP 149/67; PULSE 72; RESP 16; TEMP 37.1; O2SAT 98
--- NOTE | 2022-11-18 16:24 | MHC.CM.ED ---
Addendum entered by Sonam Solis 11/18/22 18:53: Received call from NEIDA at [facility] ([phone]). Returned call. Message left. Original Note: [facility] has accepted pt for behavioral health medication administration. and RN aware. Juanjo, invoked HCP called. regarding discharge and [facility] to administer medications. Juanjo states he is all ready for her return. Message left with Kennedy Luther at [facility] regarding patient discharge. Pt has open case. S transport booked with [facility] for 1830.
== END 2022-11-18 18:49 | disposition home or self-care (01) ==
PROVIDERS: Internal Medicine; Nurse Practitioner Family; Physician Assistant; Emergency Provider Emergency Medicine Emergency Medical Services; PCP Internal Medicine Geriatric Medicine
DX: R41.0 Disorientation, unspecified (principal); R45.850 Homicidal ideations; F29 Unspecified psychosis not due to a substance or known physiological condition; D64.9 Anemia, unspecified; M25.411 Effusion, right shoulder; E87.5 Hyperkalemia; F31.9 Bipolar disorder, unspecified; R06.02 Shortness of breath; Z20.822 Contact with and (suspected) exposure to COVID-19; Z20.828 Contact with and (suspected) exposure to other viral communicable diseases; Z87.891 Personal history of nicotine dependence; Z79.899 Other long term (current) drug therapy
CPT/HCPCS: 0241U; 10021; 10160; 36415; 71045; 80048; 80076; 80307; 81001; 82077; 82272; 82947; 83540; 83735; 85025; 93005; 94640; 99212; 99285; J8540

== ENCOUNTER 2022-11-25 16:27 | Emergency (ER) | payer MEDICARE, MEDICAID, SELFPAY ==
[2022-11-25 16:35] VITALS: BP 108/64; PULSE 106; O2SAT 95
[2022-11-25 17:17] VITALS: BP 127/50; PULSE 81; RESP 16; TEMP 36.3; O2SAT 97; BMI 37.2
--- NOTE | 2022-11-25 17:20 | ED_ITS ---
HPI - General Adult General Chief complaint: General Medical <Neftali Carlson - Last Filed: 11/25/22 17:23> Stated complaint: Shoulder pain <Neftali Carlson - Last Filed: 11/25/22 17:23> Time Seen by Provider: 11/26/22 07:02 <Neftali Carlson - Last Filed: 11/25/22 17:23> Source: patient, old records reviewed and general clerk <Marija Levy DO - Last Filed: 11/26/22 08:18> Mode of arrival: ambulatory <Marija Levy DO - Last Filed: 11/26/22 08:18> Limitations: other (poor historian) <Marija Levy DO - Last Filed: 11/26/22 08:18> History of Present Illness HPI narrative: 67 yo female with PMH of substance abuse, CHF, COPD, ETOH abuse, psychosis, L shoulder arthritis/lipoma, lyte derangements here with c/o pain at lipoma as well as her family cannot care for her as her is sick. She states she needs placement. She comes in with no shoes. She denies trauma. She thinks her lipoma is new x 7 days. She denies falls, fevers, chest pain, shortness of breath. She is here to go to a place while her gets better. <Marija Levy DO - Last Filed: 11/26/22 08:18> MD complaint: needs placement, L shoulder pain <Marija Levy DO - Last Filed: 11/26/22 08:18> Onset (ago): week(s) <Marija Levy DO - Last Filed: 11/26/22 08:18> Location: left and upper extremity <Marija Levy DO - Last Filed: 11/26/22 08:18> Radiation: non-radiation <Marija Levy DO - Last Filed: 11/26/22 08:18> Severity: moderate <Marija Levy DO - Last Filed: 11/26/22 08:18> Quality: aching <Marija Levy DO - Last Filed: 11/26/22 08:18> Pain Consistency: constant <Marija Levy DO - Last Filed: 11/26/22 08:18> Relieving factors: immobilization <Marija Levy DO - Last Filed: 11/26/22 08:18> Exacerbating factors: movement <Marija DO Mildred - Last Filed: 11/26/22 08:18> Associated symptoms: denies other symptoms <Marija DO Mildred - Last Filed: 11/26/22 08:18> Treatments prior to arrival: none <Marija MelendrezDO mervin - Last Filed: 11/26/22 08:18> Related Data Home medications: Home Medications Medication Instructions Recorded Confirmed quetiapine 50 mg tablet 50 mg PO TID 07/26/22 11/26/22 albuterol sulfate 90 mcg/actuation 2 puff inhalation Q4-6H PRN 11/26/22 11/26/22 aerosol inhaler (Ventolin HFA) Shortness Of Breath Or Wheezing aspirin 81 mg tablet,delayed 1 tab PO BEDTIME 11/26/22 11/26/22 release folic acid 1 mg tablet 1 mg PO DAILY 11/26/22 11/26/22 metoprolol succinate 25 mg 1 tab PO DAILY 11/26/22 11/26/22 tablet,extended release 24 hr montelukast 10 mg tablet 1 tab PO BEDTIME 11/26/22 11/26/22 omeprazole 40 mg capsule,delayed 1 cap PO DAILY@0630 11/26/22 11/26/22 release pravastatin 20 mg tablet 1 tab PO BEDTIME 11/26/22 11/26/22 thiamine HCl (vitamin B1) 100 mg 1 tab PO DAILY 11/26/22 11/26/22 tablet trazodone 50 mg tablet 1 tab PO BEDTIME PRN insomnia 11/26/22 11/26/22 Previous Rx's Medication Instructions Recorded acetaminophen 650 mg 1 tab PO BID PRN pain 30 days #60 04/29/22 tablet,extended release tabs baclofen 20 mg tablet 20 mg PO DAILY PRN Back Pain 30 04/29/22 days #30 tabs ipratropium 0.5 mg-albuterol 3 mg 1 amp inhalation Q4H PRN Wheezing 04/29/22 (2.5 mg base)/3 mL nebulization 30 days #30 multiple units soln multivitamin (Daily-Cony tablet) 1 tab PO DAILY 30 days #30 tabs 04/29/22 <Neftali Carlson - Last Filed: 11/25/22 17:23> Allergies/adverse reactions: Allergies Allergy/AdvReac Type Severity Reaction Status Date / Time fluticasone Allergy Unknown Verified 11/25/22 17:15 [From Advair Diskus] salmeterol Allergy Unknown Verified 11/25/22 17:15 [From Advair Diskus] paroxetine [From Paxil] AdvReac Intermediate Nausea and Verified 11/25/22 17:15 Vomiting <Neftali Carlson - Last Filed: 11/25/22 17:23> Review of Systems Review of Systems: Constitutional : No Fever, No Chills ENT/Mouth : No Ear Pain, No Hoarseness, No sore throat Eyes: No Eye Pain, No Swelling, No Redness, No Foreign Body Cardiovascular : No Chest Pain, No SOB Respiratory : No Cough, No Dyspnea Gastrointestinal : No Nausea, No Vomiting, No Diarrhea, No abdominal Pain Genitourinary : No Dysuria, No Hematuria Musculoskeletal : positive joint pain, No Myalgias, No Joint Swelling Skin : No Skin lacerations, No rash, pos skin lesion Neuro : No Weakness, No Numbness, No Loss of Consciousness, No Dizziness, No Headache Psych : No Anxiety/Panic, No Depression Heme/Lymph: no easy bruising, no Lymphadenopathy Endocrine : No Polyuria, No Polydipsia All other systems reviewed and are negative <Marija Levy DO - Last Filed: 11/26/22 08:18> [facility] Past Medical History Source: old records reviewed <Marija Levy DO - Last Filed: 11/26/22 08:18> Medical History: Medical History Acute hyponatremia Acute hyponatremia Alcohol use disorder Bipolar 1 disorder Bipolar I disorder Cannabis use disorder, moderate, dependence Chronic hyponatremia Congestive heart failure COPD (chronic obstructive pulmonary disease) Coronary artery disease Dementia Diabetes Effusion of shoulder joint, left Family history of breast cancer Hypertension Korsakoff disease Mass of joint of left shoulder Osteoarthritis Schizophrenia Shortness of breath Sleep apnea <Neftali Carlson - Last Filed: 11/25/22 17:23> Surgical History: Surgical History Hx of appendectomy <Neftali Carlson - Last Filed: 11/25/22 17:23> Family History Family History: Family History Sister Breast cancer, Onset Age: 40 Sister Breast cancer, Onset Age: 50 <Neftali Carlson - Last Filed: 11/25/22 17:23> Social History Social History: Social History Household Members: Spouse Housing: Apartment Do you presently have visiting nurse or other home services: Yes Unable to assess alcohol history related to: Unknown Alcohol intake: current Alcohol intake frequency: a few times a month Alcohol type: wine Patient Tobacco Use Status: Former Tobacco user Tobacco use type: Cigarette Cigarettes Per Day: 6 Years Smoked: 53 e-Cigarette/Vaping Use: Never Used Second Hand Smoke Exposure: Yes Substance Use Type: Marijuana Advance Directives: No Advance Directives Information Provided: No Advance Directives Date on File: 10/10/20 service: No Current occupational status: unemployed, disabled and other Sexual orientation: Straight/Heterosexual <Neftali Carlson - Last Filed: 11/25/22 17:23> Physical Exam ED Vital Signs: Vital Signs - 24 hr 11/30/22 16:10 11/30/22 22:00 12/01/22 05:33 Temperature 97.4 F 97.8 F Pulse Rate 84 86 79 Respiratory Rate 18 16 18 Blood Pressure 141/54 H 155/84 H 152/70 H Pulse Oximetry 97 95 95 Oxygen Delivery Method Room Air Room Air Room Air BMI result Body Mass Index 37.2 <Neftali Carlson - Last Filed: 11/25/22 17:23> Vital Signs - 24 hr 11/30/22 16:10 11/30/22 22:00 12/01/22 05:33 Temperature 97.4 F 97.8 F Pulse Rate 84 86 79 Respiratory Rate 18 16 18 Blood Pressure 141/54 H 155/84 H 152/70 H Pulse Oximetry 97 95 95 Oxygen Delivery Method Room Air Room Air Room Air BMI result Body Mass Index 37.2 <Marija Levy DO - Last Filed: 11/26/22 08:18> Vital Signs - 24 hr 11/30/22 16:10 11/30/22 22:00 12/01/22 05:33 Temperature 97.4 F 97.8 F Pulse Rate 84 86 79 Respiratory Rate 18 16 18 Blood Pressure 141/54 H 155/84 H 152/70 H Pulse Oximetry 97 95 95 Oxygen Delivery Method Room Air Room Air Room Air BMI result Body Mass Index 37.2 <ALICIA Dupree - Last Filed: 11/27/22 18:14> Vital Signs - 24 hr 11/30/22 16:10 11/30/22 22:00 12/01/22 05:33 Temperature 97.4 F 97.8 F Pulse Rate 84 86 79 Respiratory Rate 18 16 18 Blood Pressure 141/54 H 155/84 H 152/70 H Pulse Oximetry 97 95 95 Oxygen Delivery Method Room Air Room Air Room Air BMI result Body Mass Index 37.2 <Mavis Cintron NP - Last Filed: 11/30/22 18:18> Appearance: Alert. Oriented X2. No acute distress. Eyes: Pupils equal, round and reactive to light. ENT: Pharynx normal. Atraumatic Neck: Normal inspection. Neck supple. CVS: Normal heart rate and rhythm. Pulses normal. Respiratory: No respiratory distress. Breath sounds normal. Abdomen: Soft and non-tender. Skin: Skin warm and dry. Normal skin color. Normal skin turgor. L shoulder lipoma no signs of infection Extremities: No lower extremity edema. Feet are dry, cracked toenails are long and she has no shoes on Neuro: Oriented X 2 (confused on time). No motor deficit. No sensory deficit. <Marija Levy DO - Last Filed: 11/26/22 08:18> Course Course Course Narrative: RME- 67-year-old primarily Upper Sorbian-speaking female presents for evaluation of a mass to the left shoulder. She reports that it has been present for 1 week. However on review of her records, she had an x-ray on November 02 of this year which also showed a soft tissue mass. The patient's apparently wants the patient placed per EMS. On exam the patient has a large, well- demarcated a non mobile soft tissue mass palpable to the left shoulder region. There is no surrounding skin changes or increased warmth. Plan for Tylenol, labs <Neftali Carlson - Last Filed: 11/25/22 17:23> Reevaluation(s) Reevaluation #1: Patient placed in physician observation at 809am. The indication for observation is that the patient needs more time to for PT/CM to assess safe discharge and STR needs At this time the patient has lungs clear, CV RRR, abd nontender, neuro is intact. labs at baseline H/H stable <Marija Levy DO - Last Filed: 11/26/22 08:18> Reevaluation #2: 11/27/22-- 1812--physician observation continued. Patient mildly tachycardic this morning. Labs reviewed. Pending Case Management placement <ALICIA Dupree - Last Filed: 11/27/22 18:14> Reevaluation #3: 11/30 1814-[facility]. Vital signs reviewed and stable. No complaints from nursing overnight. Will continue physician observation pending disposition <Mavis Cintron NP - Last Filed: 11/30/22 18:18> Medications Administered Generic Name Dose Route Start Last Admin Trade Name Freq PRN Reason Stop Dose Admin Acetaminophen 650 mg 11/26/22 15:02 11/30/22 20:29 Acetaminophen 325 Mg Tablet PO 650 mg BID PRN Administration Pain, Mild (Pain Scale 1-3) Aspirin 81 mg 11/26/22 21:00 11/30/22 20:29 Aspirin Enteric Coated 81 Mg Tablet. PO 81 mg BEDTIME YUMIKO Administration Baclofen 20 mg 11/26/22 14:58 11/30/22 02:41 Baclofen 20 Mg Tablet PO 20 mg DAILY PRN Administration Back Pain Albuterol Sulfate 2.5 mg/ 0 mg 11/26/22 15:13 11/29/22 01:02 Ipratropium [place] 0.5 mg INHALE 2.5 each Q4H PRN Administration SHORTNESS OF BREATH Folic Acid 1 mg 11/27/22 09:00 12/01/22 07:31 Folic Acid 1 Mg Tablet PO 1 mg DAILY YUMIKO Administration Ibuprofen 600 mg 11/28/22 11:24 11/30/22 23:10 Ibuprofen 600 Mg Tablet PO 600 mg Q6H PRN Administration Pain, Severe (Pain Scale 7-10) Lidocaine 1 patch 11/30/22 09:00 12/01/22 07:32 Lidocaine 4 % Patch Adh..Patch TRANSDERMA 1 patch DAILY YUMIKO Administration Protocol Metoprolol Succinate 25 mg 11/27/22 09:00 12/01/22 07:31 Metoprolol Succinate Er 25 Mg Tab.Er.24h PO 25 mg DAILY YUMIKO Administration Protocol Montelukast Sodium 10 mg 11/26/22 21:00 11/30/22 20:29 Montelukast Sodium 10 Mg Tablet PO 10 mg BEDTIME YUMIKO Administration Multivitamins/Vitamin C 1 tab 11/27/22 09:00 12/01/22 07:31 Multivitamin Tablet PO 1 tab DAILY YUMIKO Administration Omeprazole 40 mg 11/30/22 06:25 12/01/22 05:23 Omeprazole 40 Mg Capsule. PO 40 mg DAILY@30 YUMIKO Administration Pravastatin Sodium 20 mg 11/26/22 21:00 11/30/22 20:29 Pravastatin Sodium 20 Mg Tablet PO 20 mg BEDTIME YUMIKO Administration Quetiapine Fumarate 50 mg 11/26/22 15:00 12/01/22 07:31 Quetiapine Fumarate 50 Mg Tablet PO 50 mg TID YUMIKO Administration Thiamine HCl 100 mg 11/27/22 09:00 12/01/22 07:32 Thiamine Hcl 100 Mg Tablet PO 100 mg DAILY YUMIKO Administration Trazodone HCl 50 mg 11/26/22 14:58 11/30/22 20:32 Trazodone Hcl 50 Mg Tablet PO 50 mg BEDTIME PRN Administration insomnia Discontinued Medications Generic Name Dose Route Start Last Admin Trade Name Freq PRN Reason Stop Dose Admin Acetaminophen 975 mg 11/25/22 17:21 11/25/22 17:24 Acetaminophen 325 Mg Tablet PO 11/25/22 17:22 975 mg ONCE ONE Administration Omeprazole 40 mg 11/27/22 06:30 11/29/22 05:16 Omeprazole 40 Mg Capsule. PO 40 mg DAILY@629 YUMIKO Administration <Neftali Carlson - Last Filed: 11/25/22 17:23> Medications Administered Generic Name Dose Route Start Last Admin Trade Name Freq PRN Reason Stop Dose Admin Acetaminophen 650 mg 11/26/22 15:02 11/30/22 20:29 Acetaminophen 325 Mg Tablet PO 650 mg BID PRN Administration Pain, Mild (Pain Scale 1-3) Aspirin 81 mg 11/26/22 21:00 11/30/22 20:29 Aspirin Enteric Coated 81 Mg Tablet. PO 81 mg BEDTIME YUMIKO Administration Baclofen 20 mg 11/26/22 14:58 11/30/22 02:41 Baclofen 20 Mg Tablet PO 20 mg DAILY PRN Administration Back Pain Albuterol Sulfate 2.5 mg/ 0 mg 11/26/22 15:13 11/29/22 01:02 Ipratropium [place] 0.5 mg INHALE 2.5 each Q4H PRN Administration SHORTNESS OF BREATH Folic Acid 1 mg 11/27/22 09:00 12/01/22 07:31 Folic Acid 1 Mg Tablet PO 1 mg DAILY YUMIKO Administration Ibuprofen 600 mg 11/28/22 11:24 11/30/22 23:10 Ibuprofen 600 Mg Tablet PO 600 mg Q6H PRN Administration Pain, Severe (Pain Scale 7-10) Lidocaine 1 patch 11/30/22 09:00 12/01/22 07:32 Lidocaine 4 % Patch Adh..Patch TRANSDERMA 1 patch DAILY YUMIKO Administration Protocol Metoprolol Succinate 25 mg 11/27/22 09:00 12/01/22 07:31 Metoprolol Succinate Er 25 Mg Tab.Er.24h PO 25 mg DAILY YUMIKO Administration Protocol Montelukast Sodium 10 mg 11/26/22 21:00 11/30/22 20:29 Montelukast Sodium 10 Mg Tablet PO 10 mg BEDTIME YUMIKO Administration Multivitamins/Vitamin C 1 tab 11/27/22 09:00 12/01/22 07:31 Multivitamin Tablet PO 1 tab DAILY YUMIKO Administration Omeprazole 40 mg 11/30/22 06:25 12/01/22 05:23 Omeprazole 40 Mg Capsule.Dr PO 40 mg DAILY@0630 YUMIKO Administration Pravastatin Sodium 20 mg 11/26/22 21:00 11/30/22 20:29 Pravastatin Sodium 20 Mg Tablet PO 20 mg BEDTIME YUMIKO Administration Quetiapine Fumarate 50 mg 11/26/22 15:00 12/01/22 07:31 Quetiapine Fumarate 50 Mg Tablet PO 50 mg TID YUMIKO Administration Thiamine HCl 100 mg 11/27/22 09:00 12/01/22 07:32 Thiamine Hcl 100 Mg Tablet PO 100 mg DAILY YUMIKO Administration Trazodone HCl 50 mg 11/26/22 14:58 11/30/22 20:32 Trazodone Hcl 50 Mg Tablet PO 50 mg BEDTIME PRN Administration insomnia Discontinued Medications Generic Name Dose Route Start Last Admin Trade Name Freq PRN Reason Stop Dose Admin Acetaminophen 975 mg 11/25/22 17:21 11/25/22 17:24 Acetaminophen 325 Mg Tablet PO 11/25/22 17:22 975 mg ONCE ONE Administration Omeprazole 40 mg 11/27/22 06:30 11/29/22 05:16 Omeprazole 40 Mg Capsule. PO 40 mg DAILY@0630 [facility] Administration <Marija Levy, DO - Last Filed: 11/26/22 08:18> Medications Administered Generic Name Dose Route Start Last Admin Trade Name Freq PRN Reason Stop Dose Admin Acetaminophen 650 mg 11/26/22 15:02 11/30/22 20:29 Acetaminophen 325 Mg Tablet PO 650 mg BID PRN Administration Pain, Mild (Pain Scale 1-3) Aspirin 81 mg 11/26/22 21:00 11/30/22 20:29 Aspirin Enteric Coated 81 Mg Tablet. PO 81 mg BEDTIME YUMIKO Administration Baclofen 20 mg 11/26/22 14:58 11/30/22 02:41 Baclofen 20 Mg Tablet PO 20 mg DAILY PRN Administration Back Pain Albuterol Sulfate 2.5 mg/ 0 mg 11/26/22 15:13 11/29/22 01:02 Ipratropium [place] 0.5 mg INHALE 2.5 each Q4H PRN Administration SHORTNESS OF BREATH Folic Acid 1 mg 11/27/22 09:00 12/01/22 07:31 Folic Acid 1 Mg Tablet PO 1 mg DAILY YUMIKO Administration Ibuprofen 600 mg 11/28/22 11:24 11/30/22 23:10 Ibuprofen 600 Mg Tablet PO 600 mg Q6H PRN Administration Pain, Severe (Pain Scale 7-10) Lidocaine 1 patch 11/30/22 09:00 12/01/22 07:32 Lidocaine 4 % Patch Adh..Patch TRANSDERMA 1 patch DAILY YUMIKO Administration Protocol Metoprolol Succinate 25 mg 11/27/22 09:00 12/01/22 07:31 Metoprolol Succinate Er 25 Mg Tab.Er.24h PO 25 mg DAILY YUMIKO Administration Protocol Montelukast Sodium 10 mg 11/26/22 21:00 11/30/22 20:29 Montelukast Sodium 10 Mg Tablet PO 10 mg BEDTIME YUMIKO Administration Multivitamins/Vitamin C 1 tab 11/27/22 09:00 12/01/22 07:31 Multivitamin Tablet PO 1 tab DAILY YUMIKO Administration Omeprazole 40 mg 11/30/22 06:25 12/01/22 05:23 Omeprazole 40 Mg Capsule.Dr PO 40 mg DAILY@0630 YUMIKO Administration Pravastatin Sodium 20 mg 11/26/22 21:00 11/30/22 20:29 Pravastatin Sodium 20 Mg Tablet PO 20 mg BEDTIME YUMIKO Administration Quetiapine Fumarate 50 mg 11/26/22 15:00 12/01/22 07:31 Quetiapine Fumarate 50 Mg Tablet PO 50 mg TID YUMIKO Administration Thiamine HCl 100 mg 11/27/22 09:00 12/01/22 07:32 Thiamine Hcl 100 Mg Tablet PO 100 mg DAILY YUMIKO Administration Trazodone HCl 50 mg 11/26/22 14:58 11/30/22 20:32 Trazodone Hcl 50 Mg Tablet PO 50 mg BEDTIME PRN Administration insomnia Discontinued Medications Generic Name Dose Route Start Last Admin Trade Name Freq PRN Reason Stop Dose Admin Acetaminophen 975 mg 11/25/22 17:21 11/25/22 17:24 Acetaminophen 325 Mg Tablet PO 11/25/22 17:22 975 mg ONCE ONE Administration Omeprazole 40 mg 11/27/22 06:30 11/29/22 05:16 Omeprazole 40 Mg Capsule. PO 40 mg DAILY@0630 YUMIKO Administration <ALICIA Dupree - Last Filed: 11/27/22 18:14> Medications Administered Generic Name Dose Route Start Last Admin Trade Name Freq PRN Reason Stop Dose Admin Acetaminophen 650 mg 11/26/22 15:02 11/30/22 20:29 Acetaminophen 325 Mg Tablet PO 650 mg BID PRN Administration Pain, Mild (Pain Scale 1-3) Aspirin 81 mg 11/26/22 21:00 11/30/22 20:29 Aspirin Enteric Coated 81 Mg Tablet. PO 81 mg BEDTIME YUMIKO Administration Baclofen 20 mg 11/26/22 14:58 11/30/22 02:41 Baclofen 20 Mg Tablet PO 20 mg DAILY PRN Administration Back Pain Albuterol Sulfate 2.5 mg/ 0 mg 11/26/22 15:13 11/29/22 01:02 Ipratropium [place] 0.5 mg INHALE 2.5 each Q4H PRN Administration SHORTNESS OF BREATH Folic Acid 1 mg 11/27/22 09:00 12/01/22 07:31 Folic Acid 1 Mg Tablet PO 1 mg DAILY YUMIKO Administration Ibuprofen 600 mg 11/28/22 11:24 11/30/22 23:10 Ibuprofen 600 Mg Tablet PO 600 mg Q6H PRN Administration Pain, Severe (Pain Scale 7-10) Lidocaine 1 patch 11/30/22 09:00 12/01/22 07:32 Lidocaine 4 % Patch Adh..Patch TRANSDERMA 1 patch DAILY YUMIKO Administration Protocol Metoprolol Succinate 25 mg 11/27/22 09:00 12/01/22 07:31 Metoprolol Succinate Er 25 Mg Tab.Er.24h PO 25 mg DAILY YUMIKO Administration Protocol Montelukast Sodium 10 mg 11/26/22 21:00 11/30/22 20:29 Montelukast Sodium 10 Mg Tablet PO 10 mg BEDTIME YUMIKO Administration Multivitamins/Vitamin C 1 tab 11/27/22 09:00 12/01/22 07:31 Multivitamin Tablet PO 1 tab DAILY YUMIKO Administration Omeprazole 40 mg 11/30/22 06:25 12/01/22 05:23 Omeprazole 40 Mg Capsule. PO 40 mg DAILY@0630 YUMIKO Administration Pravastatin Sodium 20 mg 11/26/22 21:00 11/30/22 20:29 Pravastatin Sodium 20 Mg Tablet PO 20 mg BEDTIME YUMIKO Administration Quetiapine Fumarate 50 mg 11/26/22 15:00 12/01/22 07:31 Quetiapine Fumarate 50 Mg Tablet PO 50 mg TID YUMIKO Administration Thiamine HCl 100 mg 11/27/22 09:00 12/01/22 07:32 Thiamine Hcl 100 Mg Tablet PO 100 mg DAILY YUMIKO Administration Trazodone HCl 50 mg 11/26/22 14:58 11/30/22 20:32 Trazodone Hcl 50 Mg Tablet PO 50 mg BEDTIME PRN Administration insomnia Discontinued Medications Generic Name Dose Route Start Last Admin Trade Name Sunnyq PRN Reason Stop Dose Admin Acetaminophen 975 mg 11/25/22 17:21 11/25/22 17:24 Acetaminophen 325 Mg Tablet PO 11/25/22 17:22 975 mg ONCE ONE Administration Omeprazole 40 mg 11/27/22 06:30 11/29/22 05:16 Omeprazole 40 Mg Capsule. PO 40 mg DAILY@0630 YUMIKO Administration <Mavis Cintron NP - Last Filed: 11/30/22 18:18> Medical Decision Making Medical Decision Making MDM Narrative: 67 yo female with PMH of substance abuse, CHF, COPD, ETOH abuse, psychosis, L shoulder arthritis/lipoma, lyte derangements here with c/o shoulder pain at lipoma no new injuries no signs of infection distal NV intact at this time will provide supportive care also requesting placement - will medically clear and involve CM/PT <Marija Levy DO - Last Filed: 11/26/22 08:18> Differential Diagnosis Differential Diagnoses: The differential diagnosis associated with the presentation includes <Marija Levy DO - Last Filed: 11/26/22 08:18> lipoma, substance abuse <Marija Levy DO - Last Filed: 11/26/22 08:18> Admission/Observation Consideration of admission/observation: Escalation of care including admission/observation considered <Marija Levy DO - Last Filed: 11/26/22 08:18> Consult Healthcare Provider Management of the patient was discussed with: [employer] Out Worker (case management) <Marija Levy DO - Last Filed: 11/26/22 08:18> Lab Data MDM Lab Attestation statement: I reviewed the patient's lab results. <Marija Levy DO - Last Filed: 11/26/22 08:18> Result Diagrams: 11/25/22 17:46 11/25/22 17:46 <Neftali Carlson - Last Filed: 11/25/22 17:23> Labs: Lab Results 11/25/22 11/25/22 11/25/22 Range/Units 17:46 17:46 17:46 WBC 4.2 L (4.8-10.8) X10*3/uL RBC 3.16 L (4.20-5.50) X10*6/uL Hgb 7.6 L (12.0-16.0) g/dl Hct 25.2 L (37.0-47.0) % MCV 79.7 L (80.0-98.0) fL MCH 24.1 L (27.0-33.0) pg MCHC 30.2 L (31.0-35.0) g/dl RDW 23.6 H (11.0-16.0) % Plt Count 322 (160-400) X10*3/uL MPV 8.6 L (9.4-12.3) fL Immature Gran % (Auto) 0.5 H (0.0-0.4) % Neut % (Auto) 42.6 L (45-73) % Lymph % (Auto) 40.0 (20-40) % [place] % (Auto) 13.3 H (2-11) % Eos % (Auto) 3.1 (0-4) % Baso % (Auto) 0.5 (0-2) % Lymph # (Auto) 1.7 (1.2-4.9) X10*3/uL [place] # (Auto) 0.6 (0.1-1.2) X10*3/uL Eos # (Auto) 0.1 (0.0-0.4) X10*3/uL Baso # (Auto) 0.0 (0.0-0.2) X10*3/uL Abs Immat Gran (auto) 0.02 (0.00-0.03) X10*3/uL Absolute Neuts (auto) 1.8 L (2.0-8.3) x10*3/uL Absolute Nucleated RBC 0.000 (0.0-0.012) X10*3/uL Nucleated RBC % (auto) 0.0 (0.0-0.2) /100WBC Sodium 134 L (135-145) mmol/L Potassium 5.1 (3.3-5.1) mmol/L Chloride 104 (96-108) mmol/L Carbon Dioxide 23 (22-29) mmol/L Anion Gap 12 (12-20) BUN 20 H (9-16) mg/dL Creatinine 1.21 (0.5-1.4) mg/dL Estim Creat Clear Calc 48.1 Estimated GFR 44 POC Glucose (60-115) mg/dL Random Glucose 101 (60-115) mg/dL Calcium 8.3 L (8.4-10.2) mg/dL Total Bilirubin 0.2 (0.0-1.0) mg/dL AST 17 (5-31) U/L ALT 6 (0-31) U/L Alkaline Phosphatase 119 H (39-117) U/L Total Protein 6.5 (6.5-8.0) g/dL Albumin 3.3 L (3.5-5.0) g/dL Urine Color Urine Appearance Urine pH (5.0-9.0) Ur Specific [place] (1.005-1.025) Urine Protein (Neg-Trace) mg/dL Urine Glucose (UA) (Negative) mg/dL Urine Ketones (Negative) mg/dL Urine Blood (Negative) Urine Nitrite (Negative) Ur Leukocyte Esterase (Negative) Urine RBC (0-2) /HPF Urine WBC (0-5) /HPF Ur Squamous Epith Cells (0-2) /HPF Urine Bacteria (None Seen) Hyaline Casts (0-2) /LPF Urine Opiates Screen (Not Detect) Urine Fentanyl Screen (Not Detect) Ur Barbiturates Screen (Not Detect) Ur Phencyclidine Scrn (Not Detect) Ur Amphetamines Screen (Not Detect) U Benzodiazepines Scrn (Not Detect) Urine Cocaine Screen (Not Detect) U Marijuana (THC) Screen (Not Detect) Ethyl Alcohol mg/dL COVID-19 (ZAKIA) Negative (Negative) COVID-19 Clin Com See Note 11/26/22 11/26/22 11/26/22 Range/Units 07:38 10:27 10:27 WBC (4.8-10.8) X10*3/uL RBC (4.20-5.50) X10*6/uL Hgb (12.0-16.0) g/dl Hct (37.0-47.0) % MCV (80.0-98.0) fL MCH (27.0-33.0) pg MCHC (31.0-35.0) g/dl RDW (11.0-16.0) % Plt Count (160-400) X10*3/uL MPV (9.4-12.3) fL Immature Gran % (Auto) (0.0-0.4) % Neut % (Auto) (45-73) % Lymph % (Auto) (20-40) % [place] % (Auto) (2-11) % Eos % (Auto) (0-4) % Baso % (Auto) (0-2) % Lymph # (Auto) (1.2-4.9) X10*3/uL [place] # (Auto) (0.1-1.2) X10*3/uL Eos # (Auto) (0.0-0.4) X10*3/uL Baso # (Auto) (0.0-0.2) X10*3/uL Abs Immat Gran (auto) (0.00-0.03) X10*3/uL Absolute Neuts (auto) (2.0-8.3) x10*3/uL Absolute Nucleated RBC (0.0-0.012) X10*3/uL Nucleated RBC % (auto) (0.0-0.2) /100WBC Sodium (135-145) mmol/L Potassium (3.3-5.1) mmol/L Chloride (96-108) mmol/L Carbon Dioxide (22-29) mmol/L Anion Gap (12-20) BUN (9-16) mg/dL Creatinine (0.5-1.4) mg/dL Estim Creat Clear Calc Estimated GFR POC Glucose (60-115) mg/dL Random Glucose (60-115) mg/dL Calcium (8.4-10.2) mg/dL Total Bilirubin (0.0-1.0) mg/dL AST (5-31) U/L ALT (0-31) U/L Alkaline Phosphatase (39-117) U/L Total Protein (6.5-8.0) g/dL Albumin (3.5-5.0) g/dL Urine Color Yellow Urine Appearance Clear Urine pH 6.0 (5.0-9.0) Ur Specific [place] 1.010 (1.005-1.025) Urine Protein Negative (Neg-Trace) mg/dL Urine Glucose (UA) Negative (Negative) mg/dL Urine Ketones Negative (Negative) mg/dL Urine Blood Small (1+) H (Negative) Urine Nitrite Negative (Negative) Ur Leukocyte Esterase Negative (Negative) Urine RBC 3-5 H (0-2) /HPF Urine WBC 0-5 (0-5) /HPF Ur Squamous Epith Cells 6-10 (0-2) /HPF Urine Bacteria None Seen (None Seen) Hyaline Casts 0-2 (0-2) /LPF Urine Opiates Screen Not Detected (Not Detect) Urine Fentanyl Screen Not Detected (Not Detect) Ur Barbiturates Screen Not Detected (Not Detect) Ur Phencyclidine Scrn Not Detected (Not Detect) Ur Amphetamines Screen Not Detected (Not Detect) U Benzodiazepines Scrn Not Detected (Not Detect) Urine Cocaine Screen Not Detected (Not Detect) U Marijuana (THC) Screen POSITIVE H (Not Detect) Ethyl Alcohol < 10 mg/dL COVID-19 ([facility]) (Negative) COVID-19 Clin Com 03/05/23 03/05/23 03/05/23 Range/Units 07:34 12:58 18:31 WBC (4.8-10.8) X10*3/uL RBC (4.20-5.50) X10*6/uL Hgb (12.0-16.0) g/dl Hct (37.0-47.0) % MCV (80.0-98.0) fL MCH (27.0-33.0) pg MCHC (31.0-35.0) g/dl RDW (11.0-16.0) % Plt Count (160-400) X10*3/uL MPV (9.4-12.3) fL Immature Gran % (Auto) (0.0-0.4) % Neut % (Auto) (45-73) % Lymph % (Auto) (20-40) % [place] % (Auto) (2-11) % Eos % (Auto) (0-4) % Baso % (Auto) (0-2) % Lymph # (Auto) (1.2-4.9) X10*3/uL [place] # (Auto) (0.1-1.2) X10*3/uL Eos # (Auto) (0.0-0.4) X10*3/uL Baso # (Auto) (0.0-0.2) X10*3/uL Abs Immat Gran (auto) (0.00-0.03) X10*3/uL Absolute Neuts (auto) (2.0-8.3) x10*3/uL Absolute Nucleated RBC (0.0-0.012) X10*3/uL Nucleated RBC % (auto) (0.0-0.2) /100WBC Sodium (135-145) mmol/L Potassium (3.3-5.1) mmol/L Chloride (96-108) mmol/L Carbon Dioxide (22-29) mmol/L Anion Gap (12-20) BUN (9-16) mg/dL Creatinine (0.5-1.4) mg/dL Estim Creat Clear Calc Estimated GFR POC Glucose 119 H 142 H 160 H (60-115) mg/dL Random Glucose (60-115) mg/dL Calcium (8.4-10.2) mg/dL Total Bilirubin (0.0-1.0) mg/dL AST (5-31) U/L ALT (0-31) U/L Alkaline Phosphatase (39-117) U/L Total Protein (6.5-8.0) g/dL Albumin (3.5-5.0) g/dL Urine Color Urine Appearance Urine pH (5.0-9.0) Ur Specific [place] (1.005-1.025) Urine Protein (Neg-Trace) mg/dL Urine Glucose (UA) (Negative) mg/dL Urine Ketones (Negative) mg/dL Urine Blood (Negative) Urine Nitrite (Negative) Ur Leukocyte Esterase (Negative) Urine RBC (0-2) /HPF Urine WBC (0-5) /HPF Ur Squamous Epith Cells (0-2) /HPF Urine Bacteria (None Seen) Hyaline Casts (0-2) /LPF Urine Opiates Screen (Not Detect) Urine Fentanyl Screen (Not Detect) Ur Barbiturates Screen (Not Detect) Ur Phencyclidine Scrn (Not Detect) Ur Amphetamines Screen (Not Detect) U Benzodiazepines Scrn (Not Detect) Urine Cocaine Screen (Not Detect) U Marijuana (THC) Screen (Not Detect) Ethyl Alcohol mg/dL COVID-19 ([facility]) (Negative) COVID-19 Clin Com 11/29/22 11/30/22 11/30/22 Range/Units 21:12 07:12 12:47 WBC (4.8-10.8) X10*3/uL RBC (4.20-5.50) X10*6/uL Hgb (12.0-16.0) g/dl Hct (37.0-47.0) % MCV (80.0-98.0) fL MCH (27.0-33.0) pg MCHC (31.0-35.0) g/dl RDW (11.0-16.0) % Plt Count (160-400) X10*3/uL MPV (9.4-12.3) fL Immature Gran % (Auto) (0.0-0.4) % Neut % (Auto) (45-73) % Lymph % (Auto) (20-40) % [place] % (Auto) (2-11) % Eos % (Auto) (0-4) % Baso % (Auto) (0-2) % Lymph # (Auto) (1.2-4.9) X10*3/uL [place] # (Auto) (0.1-1.2) X10*3/uL Eos # (Auto) (0.0-0.4) X10*3/uL Baso # (Auto) (0.0-0.2) X10*3/uL Abs Immat Gran (auto) (0.00-0.03) X10*3/uL Absolute Neuts (auto) (2.0-8.3) x10*3/uL Absolute Nucleated RBC (0.0-0.012) X10*3/uL Nucleated RBC % (auto) (0.0-0.2) /100WBC Sodium (135-145) mmol/L Potassium (3.3-5.1) mmol/L Chloride (96-108) mmol/L Carbon Dioxide (22-29) mmol/L Anion Gap (12-20) BUN (9-16) mg/dL Creatinine (0.5-1.4) mg/dL Estim Creat Clear Calc Estimated GFR POC Glucose 135 H 123 H 101 (60-115) mg/dL Random Glucose (60-115) mg/dL Calcium (8.4-10.2) mg/dL Total Bilirubin (0.0-1.0) mg/dL AST (5-31) U/L ALT (0-31) U/L Alkaline Phosphatase (39-117) U/L Total Protein (6.5-8.0) g/dL Albumin (3.5-5.0) g/dL Urine Color Urine Appearance Urine pH (5.0-9.0) Ur Specific [place] (1.005-1.025) Urine Protein (Neg-Trace) mg/dL Urine Glucose (UA) (Negative) mg/dL Urine Ketones (Negative) mg/dL Urine Blood (Negative) Urine Nitrite (Negative) Ur Leukocyte Esterase (Negative) Urine RBC (0-2) /HPF Urine WBC (0-5) /HPF Ur Squamous Epith Cells (0-2) /HPF Urine Bacteria (None Seen) Hyaline Casts (0-2) /LPF Urine Opiates Screen (Not Detect) Urine Fentanyl Screen (Not Detect) Ur Barbiturates Screen (Not Detect) Ur Phencyclidine Scrn (Not Detect) Ur Amphetamines Screen (Not Detect) U Benzodiazepines Scrn (Not Detect) Urine Cocaine Screen (Not Detect) U Marijuana (THC) Screen (Not Detect) Ethyl Alcohol mg/dL COVID-19 ([facility]) (Negative) COVID-19 Clin Com 11/30/22 Range/Units 17:21 WBC (4.8-10.8) X10*3/uL RBC (4.20-5.50) X10*6/uL Hgb (12.0-16.0) g/dl Hct (37.0-47.0) % MCV (80.0-98.0) fL MCH (27.0-33.0) pg MCHC (31.0-35.0) g/dl RDW (11.0-16.0) % Plt Count (160-400) X10*3/uL MPV (9.4-12.3) fL Immature Gran % (Auto) (0.0-0.4) % Neut % (Auto) (45-73) % Lymph % (Auto) (20-40) % [place] % (Auto) (2-11) % Eos % (Auto) (0-4) % Baso % (Auto) (0-2) % Lymph # (Auto) (1.2-4.9) X10*3/uL [place] # (Auto) (0.1-1.2) X10*3/uL Eos # (Auto) (0.0-0.4) X10*3/uL Baso # (Auto) (0.0-0.2) X10*3/uL Abs Immat Gran (auto) (0.00-0.03) X10*3/uL Absolute Neuts (auto) (2.0-8.3) x10*3/uL Absolute Nucleated RBC (0.0-0.012) X10*3/uL Nucleated RBC % (auto) (0.0-0.2) /100WBC Sodium (135-145) mmol/L Potassium (3.3-5.1) mmol/L Chloride (96-108) mmol/L Carbon Dioxide (22-29) mmol/L Anion Gap (12-20) BUN (9-16) mg/dL Creatinine (0.5-1.4) mg/dL Estim Creat Clear Calc Estimated GFR POC Glucose 139 H (60-115) mg/dL Random Glucose (60-115) mg/dL Calcium (8.4-10.2) mg/dL Total Bilirubin (0.0-1.0) mg/dL AST (5-31) U/L ALT (0-31) U/L Alkaline Phosphatase (39-117) U/L Total Protein (6.5-8.0) g/dL Albumin (3.5-5.0) g/dL Urine Color Urine Appearance Urine pH (5.0-9.0) Ur Specific [place] (1.005-1.025) Urine Protein (Neg-Trace) mg/dL Urine Glucose (UA) (Negative) mg/dL Urine Ketones (Negative) mg/dL Urine Blood (Negative) Urine Nitrite (Negative) Ur Leukocyte Esterase (Negative) Urine RBC (0-2) /HPF Urine WBC (0-5) /HPF Ur Squamous Epith Cells (0-2) /HPF Urine Bacteria (None Seen) Hyaline Casts (0-2) /LPF Urine Opiates Screen (Not Detect) Urine Fentanyl Screen (Not Detect) Ur Barbiturates Screen (Not Detect) Ur Phencyclidine Scrn (Not Detect) Ur Amphetamines Screen (Not Detect) U Benzodiazepines Scrn (Not Detect) Urine Cocaine Screen (Not Detect) U Marijuana (THC) Screen (Not Detect) Ethyl Alcohol mg/dL COVID-19 ([facility]) (Negative) COVID-19 Clin Com <Neftali Carlson - Last Filed: 11/25/22 17:23> Lab Results 11/25/22 11/25/22 11/25/22 Range/Units 17:46 17:46 17:46 WBC 4.2 L (4.8-10.8) X10*3/uL RBC 3.16 L (4.20-5.50) X10*6/uL Hgb 7.6 L (12.0-16.0) g/dl Hct 25.2 L (37.0-47.0) % MCV 79.7 L (80.0-98.0) fL MCH 24.1 L (27.0-33.0) pg MCHC 30.2 L (31.0-35.0) g/dl RDW 23.6 H (11.0-16.0) % Plt Count 322 (160-400) X10*3/uL MPV 8.6 L (9.4-12.3) fL Immature Gran % (Auto) 0.5 H (0.0-0.4) % Neut % (Auto) 42.6 L (45-73) % Lymph % (Auto) 40.0 (20-40) % [place] % (Auto) 13.3 H (2-11) % Eos % (Auto) 3.1 (0-4) % Baso % (Auto) 0.5 (0-2) % Lymph # (Auto) 1.7 (1.2-4.9) X10*3/uL [place] # (Auto) 0.6 (0.1-1.2) X10*3/uL Eos # (Auto) 0.1 (0.0-0.4) X10*3/uL Baso # (Auto) 0.0 (0.0-0.2) X10*3/uL Abs Immat Gran (auto) 0.02 (0.00-0.03) X10*3/uL Absolute Neuts (auto) 1.8 L (2.0-8.3) x10*3/uL Absolute Nucleated RBC 0.000 (0.0-0.012) X10*3/uL Nucleated RBC % (auto) 0.0 (0.0-0.2) /100WBC Sodium 134 L (135-145) mmol/L Potassium 5.1 (3.3-5.1) mmol/L Chloride 104 (96-108) mmol/L Carbon Dioxide 23 (22-29) mmol/L Anion Gap 12 (12-20) BUN 20 H (9-16) mg/dL Creatinine 1.21 (0.5-1.4) mg/dL Estim Creat Clear Calc 48.1 Estimated GFR 44 POC Glucose (60-115) mg/dL Random Glucose 101 (60-115) mg/dL Calcium 8.3 L (8.4-10.2) mg/dL Total Bilirubin 0.2 (0.0-1.0) mg/dL AST 17 (5-31) U/L ALT 6 (0-31) U/L Alkaline Phosphatase 119 H (39-117) U/L Total Protein 6.5 (6.5-8.0) g/dL Albumin 3.3 L (3.5-5.0) g/dL Urine Color Urine Appearance Urine pH (5.0-9.0) Ur Specific [place] (1.005-1.025) Urine Protein (Neg-Trace) mg/dL Urine Glucose (UA) (Negative) mg/dL Urine Ketones (Negative) mg/dL Urine Blood (Negative) Urine Nitrite (Negative) Ur Leukocyte Esterase (Negative) Urine RBC (0-2) /HPF Urine WBC (0-5) /HPF Ur Squamous Epith Cells (0-2) /HPF Urine Bacteria (None Seen) Hyaline Casts (0-2) /LPF Urine Opiates Screen (Not Detect) Urine Fentanyl Screen (Not Detect) Ur Barbiturates Screen (Not Detect) Ur Phencyclidine Scrn (Not Detect) Ur Amphetamines Screen (Not Detect) U Benzodiazepines Scrn (Not Detect) Urine Cocaine Screen (Not Detect) U Marijuana (THC) Screen (Not Detect) Ethyl Alcohol mg/dL COVID-19 ([facility]) Negative (Negative) COVID-19 Clin Com See Note 11/26/22 11/26/22 11/26/22 Range/Units 07:38 10:27 10:27 WBC (4.8-10.8) X10*3/uL RBC (4.20-5.50) X10*6/uL Hgb (12.0-16.0) g/dl Hct (37.0-47.0) % MCV (80.0-98.0) fL MCH (27.0-33.0) pg MCHC (31.0-35.0) g/dl RDW (11.0-16.0) % Plt Count (160-400) X10*3/uL MPV (9.4-12.3) fL Immature Gran % (Auto) (0.0-0.4) % Neut % (Auto) (45-73) % Lymph % (Auto) (20-40) % [place] % (Auto) (2-11) % Eos % (Auto) (0-4) % Baso % (Auto) (0-2) % Lymph # (Auto) (1.2-4.9) X10*3/uL [place] # (Auto) (0.1-1.2) X10*3/uL Eos # (Auto) (0.0-0.4) X10*3/uL Baso # (Auto) (0.0-0.2) X10*3/uL Abs Immat Gran (auto) (0.00-0.03) X10*3/uL Absolute Neuts (auto) (2.0-8.3) x10*3/uL Absolute Nucleated RBC (0.0-0.012) X10*3/uL Nucleated RBC % (auto) (0.0-0.2) /100WBC Sodium (135-145) mmol/L Potassium (3.3-5.1) mmol/L Chloride (96-108) mmol/L Carbon Dioxide (22-29) mmol/L Anion Gap (12-20) BUN (9-16) mg/dL Creatinine (0.5-1.4) mg/dL Estim Creat Clear Calc Estimated GFR POC Glucose (60-115) mg/dL Random Glucose (60-115) mg/dL Calcium (8.4-10.2) mg/dL Total Bilirubin (0.0-1.0) mg/dL AST (5-31) U/L ALT (0-31) U/L Alkaline Phosphatase (39-117) U/L Total Protein (6.5-8.0) g/dL Albumin (3.5-5.0) g/dL Urine Color Yellow Urine Appearance Clear Urine pH 6.0 (5.0-9.0) Ur Specific [place] 1.010 (1.005-1.025) Urine Protein Negative (Neg-Trace) mg/dL Urine Glucose (UA) Negative (Negative) mg/dL Urine Ketones Negative (Negative) mg/dL Urine Blood Small (1+) H (Negative) Urine Nitrite Negative (Negative) Ur Leukocyte Esterase Negative (Negative) Urine RBC 3-5 H (0-2) /HPF Urine WBC 0-5 (0-5) /HPF Ur Squamous Epith Cells 6-10 (0-2) /HPF Urine Bacteria None Seen (None Seen) Hyaline Casts 0-2 (0-2) /LPF Urine Opiates Screen Not Detected (Not Detect) Urine Fentanyl Screen Not Detected (Not Detect) Ur Barbiturates Screen Not Detected (Not Detect) Ur Phencyclidine Scrn Not Detected (Not Detect) Ur Amphetamines Screen Not Detected (Not Detect) U Benzodiazepines Scrn Not Detected (Not Detect) Urine Cocaine Screen Not Detected (Not Detect) U Marijuana (THC) Screen POSITIVE H (Not Detect) Ethyl Alcohol < 10 mg/dL COVID-19 ([facility]) (Negative) COVID-19 Clin Com 11/29/22 11/29/22 11/29/22 Range/Units 07:34 12:58 18:31 WBC (4.8-10.8) X10*3/uL RBC (4.20-5.50) X10*6/uL Hgb (12.0-16.0) g/dl Hct (37.0-47.0) % MCV (80.0-98.0) fL MCH (27.0-33.0) pg MCHC (31.0-35.0) g/dl RDW (11.0-16.0) % Plt Count (160-400) X10*3/uL MPV (9.4-12.3) fL Immature Gran % (Auto) (0.0-0.4) % Neut % (Auto) (45-73) % Lymph % (Auto) (20-40) % [place] % (Auto) (2-11) % Eos % (Auto) (0-4) % Baso % (Auto) (0-2) % Lymph # (Auto) (1.2-4.9) X10*3/uL [place] # (Auto) (0.1-1.2) X10*3/uL Eos # (Auto) (0.0-0.4) X10*3/uL Baso # (Auto) (0.0-0.2) X10*3/uL Abs Immat Gran (auto) (0.00-0.03) X10*3/uL Absolute Neuts (auto) (2.0-8.3) x10*3/uL Absolute Nucleated RBC (0.0-0.012) X10*3/uL Nucleated RBC % (auto) (0.0-0.2) /100WBC Sodium (135-145) mmol/L Potassium (3.3-5.1) mmol/L Chloride (96-108) mmol/L Carbon Dioxide (22-29) mmol/L Anion Gap (12-20) BUN (9-16) mg/dL Creatinine (0.5-1.4) mg/dL Estim Creat Clear Calc Estimated GFR POC Glucose 119 H 142 H 160 H (60-115) mg/dL Random Glucose (60-115) mg/dL Calcium (8.4-10.2) mg/dL Total Bilirubin (0.0-1.0) mg/dL AST (5-31) U/L ALT (0-31) U/L Alkaline Phosphatase (39-117) U/L Total Protein (6.5-8.0) g/dL Albumin (3.5-5.0) g/dL Urine Color Urine Appearance Urine pH (5.0-9.0) Ur Specific [place] (1.005-1.025) Urine Protein (Neg-Trace) mg/dL Urine Glucose (UA) (Negative) mg/dL Urine Ketones (Negative) mg/dL Urine Blood (Negative) Urine Nitrite (Negative) Ur Leukocyte Esterase (Negative) Urine RBC (0-2) /HPF Urine WBC (0-5) /HPF Ur Squamous Epith Cells (0-2) /HPF Urine Bacteria (None Seen) Hyaline Casts (0-2) /LPF Urine Opiates Screen (Not Detect) Urine Fentanyl Screen (Not Detect) Ur Barbiturates Screen (Not Detect) Ur Phencyclidine Scrn (Not Detect) Ur Amphetamines Screen (Not Detect) U Benzodiazepines Scrn (Not Detect) Urine Cocaine Screen (Not Detect) U Marijuana (THC) Screen (Not Detect) Ethyl Alcohol mg/dL COVID-19 ([facility]) (Negative) COVID-19 Clin Com 11/29/22 11/30/22 11/30/22 Range/Units 21:12 07:12 12:47 WBC (4.8-10.8) X10*3/uL RBC (4.20-5.50) X10*6/uL Hgb (12.0-16.0) g/dl Hct (37.0-47.0) % MCV (80.0-98.0) fL MCH (27.0-33.0) pg MCHC (31.0-35.0) g/dl RDW (11.0-16.0) % Plt Count (160-400) X10*3/uL MPV (9.4-12.3) fL Immature Gran % (Auto) (0.0-0.4) % Neut % (Auto) (45-73) % Lymph % (Auto) (20-40) % [place] % (Auto) (2-11) % Eos % (Auto) (0-4) % Baso % (Auto) (0-2) % Lymph # (Auto) (1.2-4.9) X10*3/uL [place] # (Auto) (0.1-1.2) X10*3/uL Eos # (Auto) (0.0-0.4) X10*3/uL Baso # (Auto) (0.0-0.2) X10*3/uL Abs Immat Gran (auto) (0.00-0.03) X10*3/uL Absolute Neuts (auto) (2.0-8.3) x10*3/uL Absolute Nucleated RBC (0.0-0.012) X10*3/uL Nucleated RBC % (auto) (0.0-0.2) /100WBC Sodium (135-145) mmol/L Potassium (3.3-5.1) mmol/L Chloride (96-108) mmol/L Carbon Dioxide (22-29) mmol/L Anion Gap (12-20) BUN (9-16) mg/dL Creatinine (0.5-1.4) mg/dL Estim Creat Clear Calc Estimated GFR POC Glucose 135 H 123 H 101 (60-115) mg/dL Random Glucose (60-115) mg/dL Calcium (8.4-10.2) mg/dL Total Bilirubin (0.0-1.0) mg/dL AST (5-31) U/L ALT (0-31) U/L Alkaline Phosphatase (39-117) U/L Total Protein (6.5-8.0) g/dL Albumin (3.5-5.0) g/dL Urine Color Urine Appearance Urine pH (5.0-9.0) Ur Specific [place] (1.005-1.025) Urine Protein (Neg-Trace) mg/dL Urine Glucose (UA) (Negative) mg/dL Urine Ketones (Negative) mg/dL Urine Blood (Negative) Urine Nitrite (Negative) Ur Leukocyte Esterase (Negative) Urine RBC (0-2) /HPF Urine WBC (0-5) /HPF Ur Squamous Epith Cells (0-2) /HPF Urine Bacteria (None Seen) Hyaline Casts (0-2) /LPF Urine Opiates Screen (Not Detect) Urine Fentanyl Screen (Not Detect) Ur Barbiturates Screen (Not Detect) Ur Phencyclidine Scrn (Not Detect) Ur Amphetamines Screen (Not Detect) U Benzodiazepines Scrn (Not Detect) Urine Cocaine Screen (Not Detect) U Marijuana (THC) Screen (Not Detect) Ethyl Alcohol mg/dL COVID-19 ([facility]) (Negative) COVID-19 Clin Com 11/30/22 Range/Units 17:21 WBC (4.8-10.8) X10*3/uL RBC (4.20-5.50) X10*6/uL Hgb (12.0-16.0) g/dl Hct (37.0-47.0) % MCV (80.0-98.0) fL MCH (27.0-33.0) pg MCHC (31.0-35.0) g/dl RDW (11.0-16.0) % Plt Count (160-400) X10*3/uL MPV (9.4-12.3) fL Immature Gran % (Auto) (0.0-0.4) % Neut % (Auto) (45-73) % Lymph % (Auto) (20-40) % [place] % (Auto) (2-11) % Eos % (Auto) (0-4) % Baso % (Auto) (0-2) % Lymph # (Auto) (1.2-4.9) X10*3/uL [place] # (Auto) (0.1-1.2) X10*3/uL Eos # (Auto) (0.0-0.4) X10*3/uL Baso # (Auto) (0.0-0.2) X10*3/uL Abs Immat Gran (auto) (0.00-0.03) X10*3/uL Absolute Neuts (auto) (2.0-8.3) x10*3/uL Absolute Nucleated RBC (0.0-0.012) X10*3/uL Nucleated RBC % (auto) (0.0-0.2) /100WBC Sodium (135-145) mmol/L Potassium (3.3-5.1) mmol/L Chloride (96-108) mmol/L Carbon Dioxide (22-29) mmol/L Anion Gap (12-20) BUN (9-16) mg/dL Creatinine (0.5-1.4) mg/dL Estim Creat Clear Calc Estimated GFR POC Glucose 139 H (60-115) mg/dL Random Glucose (60-115) mg/dL Calcium (8.4-10.2) mg/dL Total Bilirubin (0.0-1.0) mg/dL AST (5-31) U/L ALT (0-31) U/L Alkaline Phosphatase (39-117) U/L Total Protein (6.5-8.0) g/dL Albumin (3.5-5.0) g/dL Urine Color Urine Appearance Urine pH (5.0-9.0) Ur Specific [place] (1.005-1.025) Urine Protein (Neg-Trace) mg/dL Urine Glucose (UA) (Negative) mg/dL Urine Ketones (Negative) mg/dL Urine Blood (Negative) Urine Nitrite (Negative) Ur Leukocyte Esterase (Negative) Urine RBC (0-2) /HPF Urine WBC (0-5) /HPF Ur Squamous Epith Cells (0-2) /HPF Urine Bacteria (None Seen) Hyaline Casts (0-2) /LPF Urine Opiates Screen (Not Detect) Urine Fentanyl Screen (Not Detect) Ur Barbiturates Screen (Not Detect) Ur Phencyclidine Scrn (Not Detect) Ur Amphetamines Screen (Not Detect) U Benzodiazepines Scrn (Not Detect) Urine Cocaine Screen (Not Detect) U Marijuana (THC) Screen (Not Detect) Ethyl Alcohol mg/dL COVID-19 ([facility]) (Negative) COVID-19 Clin Com <Marija Levy, DO - Last Filed: 11/26/22 08:18> Lab Results 11/25/22 11/25/22 11/25/22 Range/Units 17:46 17:46 17:46 WBC 4.2 L (4.8-10.8) X10*3/uL RBC 3.16 L (4.20-5.50) X10*6/uL Hgb 7.6 L (12.0-16.0) g/dl Hct 25.2 L (37.0-47.0) % MCV 79.7 L (80.0-98.0) fL MCH 24.1 L (27.0-33.0) pg MCHC 30.2 L (31.0-35.0) g/dl RDW 23.6 H (11.0-16.0) % Plt Count 322 (160-400) X10*3/uL MPV 8.6 L (9.4-12.3) fL Immature Gran % (Auto) 0.5 H (0.0-0.4) % Neut % (Auto) 42.6 L (45-73) % Lymph % (Auto) 40.0 (20-40) % [place] % (Auto) 13.3 H (2-11) % Eos % (Auto) 3.1 (0-4) % Baso % (Auto) 0.5 (0-2) % Lymph # (Auto) 1.7 (1.2-4.9) X10*3/uL [place] # (Auto) 0.6 (0.1-1.2) X10*3/uL Eos # (Auto) 0.1 (0.0-0.4) X10*3/uL Baso # (Auto) 0.0 (0.0-0.2) X10*3/uL Abs Immat Gran (auto) 0.02 (0.00-0.03) X10*3/uL Absolute Neuts (auto) 1.8 L (2.0-8.3) x10*3/uL Absolute Nucleated RBC 0.000 (0.0-0.012) X10*3/uL Nucleated RBC % (auto) 0.0 (0.0-0.2) /100WBC Sodium 134 L (135-145) mmol/L Potassium 5.1 (3.3-5.1) mmol/L Chloride 104 (96-108) mmol/L Carbon Dioxide 23 (22-29) mmol/L Anion Gap 12 (12-20) BUN 20 H (9-16) mg/dL Creatinine 1.21 (0.5-1.4) mg/dL Estim Creat Clear Calc 48.1 Estimated GFR 44 POC Glucose (60-115) mg/dL Random Glucose 101 (60-115) mg/dL Calcium 8.3 L (8.4-10.2) mg/dL Total Bilirubin 0.2 (0.0-1.0) mg/dL AST 17 (5-31) U/L ALT 6 (0-31) U/L Alkaline Phosphatase 119 H (39-117) U/L Total Protein 6.5 (6.5-8.0) g/dL Albumin 3.3 L (3.5-5.0) g/dL Urine Color Urine Appearance Urine pH (5.0-9.0) Ur Specific [place] (1.005-1.025) Urine Protein (Neg-Trace) mg/dL Urine Glucose (UA) (Negative) mg/dL Urine Ketones (Negative) mg/dL Urine Blood (Negative) Urine Nitrite (Negative) Ur Leukocyte Esterase (Negative) Urine RBC (0-2) /HPF Urine WBC (0-5) /HPF Ur Squamous Epith Cells (0-2) /HPF Urine Bacteria (None Seen) Hyaline Casts (0-2) /LPF Urine Opiates Screen (Not Detect) Urine Fentanyl Screen (Not Detect) Ur Barbiturates Screen (Not Detect) Ur Phencyclidine Scrn (Not Detect) Ur Amphetamines Screen (Not Detect) U Benzodiazepines Scrn (Not Detect) Urine Cocaine Screen (Not Detect) U Marijuana (THC) Screen (Not Detect) Ethyl Alcohol mg/dL COVID-19 ([facility]) Negative (Negative) COVID-19 Clin Com See Note 11/26/22 11/26/22 11/26/22 Range/Units 07:38 10:27 10:27 WBC (4.8-10.8) X10*3/uL RBC (4.20-5.50) X10*6/uL Hgb (12.0-16.0) g/dl Hct (37.0-47.0) % MCV (80.0-98.0) fL MCH (27.0-33.0) pg MCHC (31.0-35.0) g/dl RDW (11.0-16.0) % Plt Count (160-400) X10*3/uL MPV (9.4-12.3) fL Immature Gran % (Auto) (0.0-0.4) % Neut % (Auto) (45-73) % Lymph % (Auto) (20-40) % [place] % (Auto) (2-11) % Eos % (Auto) (0-4) % Baso % (Auto) (0-2) % Lymph # (Auto) (1.2-4.9) X10*3/uL [place] # (Auto) (0.1-1.2) X10*3/uL Eos # (Auto) (0.0-0.4) X10*3/uL Baso # (Auto) (0.0-0.2) X10*3/uL Abs Immat Gran (auto) (0.00-0.03) X10*3/uL Absolute Neuts (auto) (2.0-8.3) x10*3/uL Absolute Nucleated RBC (0.0-0.012) X10*3/uL Nucleated RBC % (auto) (0.0-0.2) /100WBC Sodium (135-145) mmol/L Potassium (3.3-5.1) mmol/L Chloride (96-108) mmol/L Carbon Dioxide (22-29) mmol/L Anion Gap (12-20) BUN (9-16) mg/dL Creatinine (0.5-1.4) mg/dL Estim Creat Clear Calc Estimated GFR POC Glucose (60-115) mg/dL Random Glucose (60-115) mg/dL Calcium (8.4-10.2) mg/dL Total Bilirubin (0.0-1.0) mg/dL AST (5-31) U/L ALT (0-31) U/L Alkaline Phosphatase (39-117) U/L Total Protein (6.5-8.0) g/dL Albumin (3.5-5.0) g/dL Urine Color Yellow Urine Appearance Clear Urine pH 6.0 (5.0-9.0) Ur Specific [place] 1.010 (1.005-1.025) Urine Protein Negative (Neg-Trace) mg/dL Urine Glucose (UA) Negative (Negative) mg/dL Urine Ketones Negative (Negative) mg/dL Urine Blood Small (1+) H (Negative) Urine Nitrite Negative (Negative) Ur Leukocyte Esterase Negative (Negative) Urine RBC 3-5 H (0-2) /HPF Urine WBC 0-5 (0-5) /HPF Ur Squamous Epith Cells 6-10 (0-2) /HPF Urine Bacteria None Seen (None Seen) Hyaline Casts 0-2 (0-2) /LPF Urine Opiates Screen Not Detected (Not Detect) Urine Fentanyl Screen Not Detected (Not Detect) Ur Barbiturates Screen Not Detected (Not Detect) Ur Phencyclidine Scrn Not Detected (Not Detect) Ur Amphetamines Screen Not Detected (Not Detect) U Benzodiazepines Scrn Not Detected (Not Detect) Urine Cocaine Screen Not Detected (Not Detect) U Marijuana (THC) Screen POSITIVE H (Not Detect) Ethyl Alcohol < 10 mg/dL COVID-19 ([facility]) (Negative) COVID-19 Clin Com 11/29/22 11/29/22 11/29/22 Range/Units 07:34 12:58 18:31 WBC (4.8-10.8) X10*3/uL RBC (4.20-5.50) X10*6/uL Hgb (12.0-16.0) g/dl Hct (37.0-47.0) % MCV (80.0-98.0) fL MCH (27.0-33.0) pg MCHC (31.0-35.0) g/dl RDW (11.0-16.0) % Plt Count (160-400) X10*3/uL MPV (9.4-12.3) fL Immature Gran % (Auto) (0.0-0.4) % Neut % (Auto) (45-73) % Lymph % (Auto) (20-40) % [place] % (Auto) (2-11) % Eos % (Auto) (0-4) % Baso % (Auto) (0-2) % Lymph # (Auto) (1.2-4.9) X10*3/uL [place] # (Auto) (0.1-1.2) X10*3/uL Eos # (Auto) (0.0-0.4) X10*3/uL Baso # (Auto) (0.0-0.2) X10*3/uL Abs Immat Gran (auto) (0.00-0.03) X10*3/uL Absolute Neuts (auto) (2.0-8.3) x10*3/uL Absolute Nucleated RBC (0.0-0.012) X10*3/uL Nucleated RBC % (auto) (0.0-0.2) /100WBC Sodium (135-145) mmol/L Potassium (3.3-5.1) mmol/L Chloride (96-108) mmol/L Carbon Dioxide (22-29) mmol/L Anion Gap (12-20) BUN (9-16) mg/dL Creatinine (0.5-1.4) mg/dL Estim Creat Clear Calc Estimated GFR POC Glucose 119 H 142 H 160 H (60-115) mg/dL Random Glucose (60-115) mg/dL Calcium (8.4-10.2) mg/dL Total Bilirubin (0.0-1.0) mg/dL AST (5-31) U/L ALT (0-31) U/L Alkaline Phosphatase (39-117) U/L Total Protein (6.5-8.0) g/dL Albumin (3.5-5.0) g/dL Urine Color Urine Appearance Urine pH (5.0-9.0) Ur Specific [place] (1.005-1.025) Urine Protein (Neg-Trace) mg/dL Urine Glucose (UA) (Negative) mg/dL Urine Ketones (Negative) mg/dL Urine Blood (Negative) Urine Nitrite (Negative) Ur Leukocyte Esterase (Negative) Urine RBC (0-2) /HPF Urine WBC (0-5) /HPF Ur Squamous Epith Cells (0-2) /HPF Urine Bacteria (None Seen) Hyaline Casts (0-2) /LPF Urine Opiates Screen (Not Detect) Urine Fentanyl Screen (Not Detect) Ur Barbiturates Screen (Not Detect) Ur Phencyclidine Scrn (Not Detect) Ur Amphetamines Screen (Not Detect) U Benzodiazepines Scrn (Not Detect) Urine Cocaine Screen (Not Detect) U Marijuana (THC) Screen (Not Detect) Ethyl Alcohol mg/dL COVID-19 ([facility]) (Negative) COVID-19 Clin Com 11/29/22 11/30/22 11/30/22 Range/Units 21:12 07:12 12:47 WBC (4.8-10.8) X10*3/uL RBC (4.20-5.50) X10*6/uL Hgb (12.0-16.0) g/dl Hct (37.0-47.0) % MCV (80.0-98.0) fL MCH (27.0-33.0) pg MCHC (31.0-35.0) g/dl RDW (11.0-16.0) % Plt Count (160-400) X10*3/uL MPV (9.4-12.3) fL Immature Gran % (Auto) (0.0-0.4) % Neut % (Auto) (45-73) % Lymph % (Auto) (20-40) % [place] % (Auto) (2-11) % Eos % (Auto) (0-4) % Baso % (Auto) (0-2) % Lymph # (Auto) (1.2-4.9) X10*3/uL [place] # (Auto) (0.1-1.2) X10*3/uL Eos # (Auto) (0.0-0.4) X10*3/uL Baso # (Auto) (0.0-0.2) X10*3/uL Abs Immat Gran (auto) (0.00-0.03) X10*3/uL Absolute Neuts (auto) (2.0-8.3) x10*3/uL Absolute Nucleated RBC (0.0-0.012) X10*3/uL Nucleated RBC % (auto) (0.0-0.2) /100WBC Sodium (135-145) mmol/L Potassium (3.3-5.1) mmol/L Chloride (96-108) mmol/L Carbon Dioxide (22-29) mmol/L Anion Gap (12-20) BUN (9-16) mg/dL Creatinine (0.5-1.4) mg/dL Estim Creat Clear Calc Estimated GFR POC Glucose 135 H 123 H 101 (60-115) mg/dL Random Glucose (60-115) mg/dL Calcium (8.4-10.2) mg/dL Total Bilirubin (0.0-1.0) mg/dL AST (5-31) U/L ALT (0-31) U/L Alkaline Phosphatase (39-117) U/L Total Protein (6.5-8.0) g/dL Albumin (3.5-5.0) g/dL Urine Color Urine Appearance Urine pH (5.0-9.0) Ur Specific [place] (1.005-1.025) Urine Protein (Neg-Trace) mg/dL Urine Glucose (UA) (Negative) mg/dL Urine Ketones (Negative) mg/dL Urine Blood (Negative) Urine Nitrite (Negative) Ur Leukocyte Esterase (Negative) Urine RBC (0-2) /HPF Urine WBC (0-5) /HPF Ur Squamous Epith Cells (0-2) /HPF Urine Bacteria (None Seen) Hyaline Casts (0-2) /LPF Urine Opiates Screen (Not Detect) Urine Fentanyl Screen (Not Detect) Ur Barbiturates Screen (Not Detect) Ur Phencyclidine Scrn (Not Detect) Ur Amphetamines Screen (Not Detect) U Benzodiazepines Scrn (Not Detect) Urine Cocaine Screen (Not Detect) U Marijuana (THC) Screen (Not Detect) Ethyl Alcohol mg/dL COVID-19 (ZAKIA) (Negative) COVID-19 Clin Com 11/30/22 Range/Units 17:21 WBC (4.8-10.8) X10*3/uL RBC (4.20-5.50) X10*6/uL Hgb (12.0-16.0) g/dl Hct (37.0-47.0) % MCV (80.0-98.0) fL MCH (27.0-33.0) pg MCHC (31.0-35.0) g/dl RDW (11.0-16.0) % Plt Count (160-400) X10*3/uL MPV (9.4-12.3) fL Immature Gran % (Auto) (0.0-0.4) % Neut % (Auto) (45-73) % Lymph % (Auto) (20-40) % [place] % (Auto) (2-11) % Eos % (Auto) (0-4) % Baso % (Auto) (0-2) % Lymph # (Auto) (1.2-4.9) X10*3/uL [place] # (Auto) (0.1-1.2) X10*3/uL Eos # (Auto) (0.0-0.4) X10*3/uL Baso # (Auto) (0.0-0.2) X10*3/uL Abs Immat Gran (auto) (0.00-0.03) X10*3/uL Absolute Neuts (auto) (2.0-8.3) x10*3/uL Absolute Nucleated RBC (0.0-0.012) X10*3/uL Nucleated RBC % (auto) (0.0-0.2) /100WBC Sodium (135-145) mmol/L Potassium (3.3-5.1) mmol/L Chloride (96-108) mmol/L Carbon Dioxide (22-29) mmol/L Anion Gap (12-20) BUN (9-16) mg/dL Creatinine (0.5-1.4) mg/dL Estim Creat Clear Calc Estimated GFR POC Glucose 139 H (60-115) mg/dL Random Glucose (60-115) mg/dL Calcium (8.4-10.2) mg/dL Total Bilirubin (0.0-1.0) mg/dL AST (5-31) U/L ALT (0-31) U/L Alkaline Phosphatase (39-117) U/L Total Protein (6.5-8.0) g/dL Albumin (3.5-5.0) g/dL Urine Color Urine Appearance Urine pH (5.0-9.0) Ur Specific [place] (1.005-1.025) Urine Protein (Neg-Trace) mg/dL Urine Glucose (UA) (Negative) mg/dL Urine Ketones (Negative) mg/dL Urine Blood (Negative) Urine Nitrite (Negative) Ur Leukocyte Esterase (Negative) Urine RBC (0-2) /HPF Urine WBC (0-5) /HPF Ur Squamous Epith Cells (0-2) /HPF Urine Bacteria (None Seen) Hyaline Casts (0-2) /LPF Urine Opiates Screen (Not Detect) Urine Fentanyl Screen (Not Detect) Ur Barbiturates Screen (Not Detect) Ur Phencyclidine Scrn (Not Detect) Ur Amphetamines Screen (Not Detect) U Benzodiazepines Scrn (Not Detect) Urine Cocaine Screen (Not Detect) U Marijuana (THC) Screen (Not Detect) Ethyl Alcohol mg/dL COVID-19 ([facility]AKIA) (Negative) COVID-19 Clin Com <ALICIA Dupree - Last Filed: 11/27/22 18:14> Lab Results 11/25/22 11/25/22 11/25/22 Range/Units 17:46 17:46 17:46 WBC 4.2 L (4.8-10.8) X10*3/uL RBC 3.16 L (4.20-5.50) X10*6/uL Hgb 7.6 L (12.0-16.0) g/dl Hct 25.2 L (37.0-47.0) % MCV 79.7 L (80.0-98.0) fL MCH 24.1 L (27.0-33.0) pg MCHC 30.2 L (31.0-35.0) g/dl RDW 23.6 H (11.0-16.0) % Plt Count 322 (160-400) X10*3/uL MPV 8.6 L (9.4-12.3) fL Immature Gran % (Auto) 0.5 H (0.0-0.4) % Neut % (Auto) 42.6 L (45-73) % Lymph % (Auto) 40.0 (20-40) % [place] % (Auto) 13.3 H (2-11) % Eos % (Auto) 3.1 (0-4) % Baso % (Auto) 0.5 (0-2) % Lymph # (Auto) 1.7 (1.2-4.9) X10*3/uL [place] # (Auto) 0.6 (0.1-1.2) X10*3/uL Eos # (Auto) 0.1 (0.0-0.4) X10*3/uL Baso # (Auto) 0.0 (0.0-0.2) X10*3/uL Abs Immat Gran (auto) 0.02 (0.00-0.03) X10*3/uL Absolute Neuts (auto) 1.8 L (2.0-8.3) x10*3/uL Absolute Nucleated RBC 0.000 (0.0-0.012) X10*3/uL Nucleated RBC % (auto) 0.0 (0.0-0.2) /100WBC Sodium 134 L (135-145) mmol/L Potassium 5.1 (3.3-5.1) mmol/L Chloride 104 (96-108) mmol/L Carbon Dioxide 23 (22-29) mmol/L Anion Gap 12 (12-20) BUN 20 H (9-16) mg/dL Creatinine 1.21 (0.5-1.4) mg/dL Estim Creat Clear Calc 48.1 Estimated GFR 44 POC Glucose (60-115) mg/dL Random Glucose 101 (60-115) mg/dL Calcium 8.3 L (8.4-10.2) mg/dL Total Bilirubin 0.2 (0.0-1.0) mg/dL AST 17 (5-31) U/L ALT 6 (0-31) U/L Alkaline Phosphatase 119 H (39-117) U/L Total Protein 6.5 (6.5-8.0) g/dL Albumin 3.3 L (3.5-5.0) g/dL Urine Color Urine Appearance Urine pH (5.0-9.0) Ur Specific [place] (1.005-1.025) Urine Protein (Neg-Trace) mg/dL Urine Glucose (UA) (Negative) mg/dL Urine Ketones (Negative) mg/dL Urine Blood (Negative) Urine Nitrite (Negative) Ur Leukocyte Esterase (Negative) Urine RBC (0-2) /HPF Urine WBC (0-5) /HPF Ur Squamous Epith Cells (0-2) /HPF Urine Bacteria (None Seen) Hyaline Casts (0-2) /LPF Urine Opiates Screen (Not Detect) Urine Fentanyl Screen (Not Detect) Ur Barbiturates Screen (Not Detect) Ur Phencyclidine Scrn (Not Detect) Ur Amphetamines Screen (Not Detect) U Benzodiazepines Scrn (Not Detect) Urine Cocaine Screen (Not Detect) U Marijuana (THC) Screen (Not Detect) Ethyl Alcohol mg/dL COVID-19 ([facility]AKIA) Negative (Negative) COVID-19 Clin Com See Note 11/26/22 11/26/22 11/26/22 Range/Units 07:38 10:27 10:27 WBC (4.8-10.8) X10*3/uL RBC (4.20-5.50) X10*6/uL Hgb (12.0-16.0) g/dl Hct (37.0-47.0) % MCV (80.0-98.0) fL MCH (27.0-33.0) pg MCHC (31.0-35.0) g/dl RDW (11.0-16.0) % Plt Count (160-400) X10*3/uL MPV (9.4-12.3) fL Immature Gran % (Auto) (0.0-0.4) % Neut % (Auto) (45-73) % Lymph % (Auto) (20-40) % [place] % (Auto) (2-11) % Eos % (Auto) (0-4) % Baso % (Auto) (0-2) % Lymph # (Auto) (1.2-4.9) X10*3/uL [place] # (Auto) (0.1-1.2) X10*3/uL Eos # (Auto) (0.0-0.4) X10*3/uL Baso # (Auto) (0.0-0.2) X10*3/uL Abs Immat Gran (auto) (0.00-0.03) X10*3/uL Absolute Neuts (auto) (2.0-8.3) x10*3/uL Absolute Nucleated RBC (0.0-0.012) X10*3/uL Nucleated RBC % (auto) (0.0-0.2) /100WBC Sodium (135-145) mmol/L Potassium (3.3-5.1) mmol/L Chloride (96-108) mmol/L Carbon Dioxide (22-29) mmol/L Anion Gap (12-20) BUN (9-16) mg/dL Creatinine (0.5-1.4) mg/dL Estim Creat Clear Calc Estimated GFR POC Glucose (60-115) mg/dL Random Glucose (60-115) mg/dL Calcium (8.4-10.2) mg/dL Total Bilirubin (0.0-1.0) mg/dL AST (5-31) U/L ALT (0-31) U/L Alkaline Phosphatase (39-117) U/L Total Protein (6.5-8.0) g/dL Albumin (3.5-5.0) g/dL Urine Color Yellow Urine Appearance Clear Urine pH 6.0 (5.0-9.0) Ur Specific [place] 1.010 (1.005-1.025) Urine Protein Negative (Neg-Trace) mg/dL Urine Glucose (UA) Negative (Negative) mg/dL Urine Ketones Negative (Negative) mg/dL Urine Blood Small (1+) H (Negative) Urine Nitrite Negative (Negative) Ur Leukocyte Esterase Negative (Negative) Urine RBC 3-5 H (0-2) /HPF Urine WBC 0-5 (0-5) /HPF Ur Squamous Epith Cells 6-10 (0-2) /HPF Urine Bacteria None Seen (None Seen) Hyaline Casts 0-2 (0-2) /LPF Urine Opiates Screen Not Detected (Not Detect) Urine Fentanyl Screen Not Detected (Not Detect) Ur Barbiturates Screen Not Detected (Not Detect) Ur Phencyclidine Scrn Not Detected (Not Detect) Ur Amphetamines Screen Not Detected (Not Detect) U Benzodiazepines Scrn Not Detected (Not Detect) Urine Cocaine Screen Not Detected (Not Detect) U Marijuana (THC) Screen POSITIVE H (Not Detect) Ethyl Alcohol < 10 mg/dL COVID-19 (ZAKIA) (Negative) COVID-19 Clin Com 11/29/22 11/29/22 11/29/22 Range/Units 07:34 12:58 18:31 WBC (4.8-10.8) X10*3/uL RBC (4.20-5.50) X10*6/uL Hgb (12.0-16.0) g/dl Hct (37.0-47.0) % MCV (80.0-98.0) fL MCH (27.0-33.0) pg MCHC (31.0-35.0) g/dl RDW (11.0-16.0) % Plt Count (160-400) X10*3/uL MPV (9.4-12.3) fL Immature Gran % (Auto) (0.0-0.4) % Neut % (Auto) (45-73) % Lymph % (Auto) (20-40) % [place] % (Auto) (2-11) % Eos % (Auto) (0-4) % Baso % (Auto) (0-2) % Lymph # (Auto) (1.2-4.9) X10*3/uL [place] # (Auto) (0.1-1.2) X10*3/uL Eos # (Auto) (0.0-0.4) X10*3/uL Baso # (Auto) (0.0-0.2) X10*3/uL Abs Immat Gran (auto) (0.00-0.03) X10*3/uL Absolute Neuts (auto) (2.0-8.3) x10*3/uL Absolute Nucleated RBC (0.0-0.012) X10*3/uL Nucleated RBC % (auto) (0.0-0.2) /100WBC Sodium (135-145) mmol/L Potassium (3.3-5.1) mmol/L Chloride (96-108) mmol/L Carbon Dioxide (22-29) mmol/L Anion Gap (12-20) BUN (9-16) mg/dL Creatinine (0.5-1.4) mg/dL Estim Creat Clear Calc Estimated GFR POC Glucose 119 H 142 H 160 H (60-115) mg/dL Random Glucose (60-115) mg/dL Calcium (8.4-10.2) mg/dL Total Bilirubin (0.0-1.0) mg/dL AST (5-31) U/L ALT (0-31) U/L Alkaline Phosphatase (39-117) U/L Total Protein (6.5-8.0) g/dL Albumin (3.5-5.0) g/dL Urine Color Urine Appearance Urine pH (5.0-9.0) Ur Specific [place] (1.005-1.025) Urine Protein (Neg-Trace) mg/dL Urine Glucose (UA) (Negative) mg/dL Urine Ketones (Negative) mg/dL Urine Blood (Negative) Urine Nitrite (Negative) Ur Leukocyte Esterase (Negative) Urine RBC (0-2) /HPF Urine WBC (0-5) /HPF Ur Squamous Epith Cells (0-2) /HPF Urine Bacteria (None Seen) Hyaline Casts (0-2) /LPF Urine Opiates Screen (Not Detect) Urine Fentanyl Screen (Not Detect) Ur Barbiturates Screen (Not Detect) Ur Phencyclidine Scrn (Not Detect) Ur Amphetamines Screen (Not Detect) U Benzodiazepines Scrn (Not Detect) Urine Cocaine Screen (Not Detect) U Marijuana (THC) Screen (Not Detect) Ethyl Alcohol mg/dL COVID-19 ([facility]AKIA) (Negative) COVID-19 Clin Com 11/29/22 11/30/22 11/30/22 Range/Units 21:12 07:12 12:47 WBC (4.8-10.8) X10*3/uL RBC (4.20-5.50) X10*6/uL Hgb (12.0-16.0) g/dl Hct (37.0-47.0) % MCV (80.0-98.0) fL MCH (27.0-33.0) pg MCHC (31.0-35.0) g/dl RDW (11.0-16.0) % Plt Count (160-400) X10*3/uL MPV (9.4-12.3) fL Immature Gran % (Auto) (0.0-0.4) % Neut % (Auto) (45-73) % Lymph % (Auto) (20-40) % [place] % (Auto) (2-11) % Eos % (Auto) (0-4) % Baso % (Auto) (0-2) % Lymph # (Auto) (1.2-4.9) X10*3/uL [place] # (Auto) (0.1-1.2) X10*3/uL Eos # (Auto) (0.0-0.4) X10*3/uL Baso # (Auto) (0.0-0.2) X10*3/uL Abs Immat Gran (auto) (0.00-0.03) X10*3/uL Absolute Neuts (auto) (2.0-8.3) x10*3/uL Absolute Nucleated RBC (0.0-0.012) X10*3/uL Nucleated RBC % (auto) (0.0-0.2) /100WBC Sodium (135-145) mmol/L Potassium (3.3-5.1) mmol/L Chloride (96-108) mmol/L Carbon Dioxide (22-29) mmol/L Anion Gap (12-20) BUN (9-16) mg/dL Creatinine (0.5-1.4) mg/dL Estim Creat Clear Calc Estimated GFR POC Glucose 135 H 123 H 101 (60-115) mg/dL Random Glucose (60-115) mg/dL Calcium (8.4-10.2) mg/dL Total Bilirubin (0.0-1.0) mg/dL AST (5-31) U/L ALT (0-31) U/L Alkaline Phosphatase (39-117) U/L Total Protein (6.5-8.0) g/dL Albumin (3.5-5.0) g/dL Urine Color Urine Appearance Urine pH (5.0-9.0) Ur Specific [place] (1.005-1.025) Urine Protein (Neg-Trace) mg/dL Urine Glucose (UA) (Negative) mg/dL Urine Ketones (Negative) mg/dL Urine Blood (Negative) Urine Nitrite (Negative) Ur Leukocyte Esterase (Negative) Urine RBC (0-2) /HPF Urine WBC (0-5) /HPF Ur Squamous Epith Cells (0-2) /HPF Urine Bacteria (None Seen) Hyaline Casts (0-2) /LPF Urine Opiates Screen (Not Detect) Urine Fentanyl Screen (Not Detect) Ur Barbiturates Screen (Not Detect) Ur Phencyclidine Scrn (Not Detect) Ur Amphetamines Screen (Not Detect) U Benzodiazepines Scrn (Not Detect) Urine Cocaine Screen (Not Detect) U Marijuana (THC) Screen (Not Detect) Ethyl Alcohol mg/dL COVID-19 (ZAKIA) (Negative) COVID-19 Clin Com 11/30/22 Range/Units 17:21 WBC (4.8-10.8) X10*3/uL RBC (4.20-5.50) X10*6/uL Hgb (12.0-16.0) g/dl Hct (37.0-47.0) % MCV (80.0-98.0) fL MCH (27.0-33.0) pg MCHC (31.0-35.0) g/dl RDW (11.0-16.0) % Plt Count (160-400) X10*3/uL MPV (9.4-12.3) fL Immature Gran % (Auto) (0.0-0.4) % Neut % (Auto) (45-73) % Lymph % (Auto) (20-40) % [place] % (Auto) (2-11) % Eos % (Auto) (0-4) % Baso % (Auto) (0-2) % Lymph # (Auto) (1.2-4.9) X10*3/uL [place] # (Auto) (0.1-1.2) X10*3/uL Eos # (Auto) (0.0-0.4) X10*3/uL Baso # (Auto) (0.0-0.2) X10*3/uL Abs Immat Gran (auto) (0.00-0.03) X10*3/uL Absolute Neuts (auto) (2.0-8.3) x10*3/uL Absolute Nucleated RBC (0.0-0.012) X10*3/uL Nucleated RBC % (auto) (0.0-0.2) /100WBC Sodium (135-145) mmol/L Potassium (3.3-5.1) mmol/L Chloride (96-108) mmol/L Carbon Dioxide (22-29) mmol/L Anion Gap (12-20) BUN (9-16) mg/dL Creatinine (0.5-1.4) mg/dL Estim Creat Clear Calc Estimated GFR POC Glucose 139 H (60-115) mg/dL Random Glucose (60-115) mg/dL Calcium (8.4-10.2) mg/dL Total Bilirubin (0.0-1.0) mg/dL AST (5-31) U/L ALT (0-31) U/L Alkaline Phosphatase (39-117) U/L Total Protein (6.5-8.0) g/dL Albumin (3.5-5.0) g/dL Urine Color Urine Appearance Urine pH (5.0-9.0) Ur Specific [place] (1.005-1.025) Urine Protein (Neg-Trace) mg/dL Urine Glucose (UA) (Negative) mg/dL Urine Ketones (Negative) mg/dL Urine Blood (Negative) Urine Nitrite (Negative) Ur Leukocyte Esterase (Negative) Urine RBC (0-2) /HPF Urine WBC (0-5) /HPF Ur Squamous Epith Cells (0-2) /HPF Urine Bacteria (None Seen) Hyaline Casts (0-2) /LPF Urine Opiates Screen (Not Detect) Urine Fentanyl Screen (Not Detect) Ur Barbiturates Screen (Not Detect) Ur Phencyclidine Scrn (Not Detect) Ur Amphetamines Screen (Not Detect) U Benzodiazepines Scrn (Not Detect) Urine Cocaine Screen (Not Detect) U Marijuana (THC) Screen (Not Detect) Ethyl Alcohol mg/dL COVID-19 (ZAKIA) (Negative) COVID-19 Clin Com <Mavis Cintron NP - Last Filed: 11/30/22 18:18> Independent Interpretation I performed an independent interpretation of an: EKG <Marija Levy DO - Last Filed: 11/26/22 08:18> Interpretation: Rate: 78 Rhythm: NSR [place]: left Normal P waves. Normal ANDRES. Normal QRS complex. ST T wave : nonspecific T wave V1-V3 qTC: normal prior studies: no sig change The study has been interpreted contemporaneously by me. . <Marija Levy DO - Last Filed: 11/26/22 08:18> External Record Review External record reviewed: Inpatient record <Marija Levy DO - Last Filed: 11/26/22 08:18> Social Determinants Patient?s care significantly limited by Social Determinants of Health including: Problems related to primary support group and Other Social Determinant of Health <Marija eLvy DO - Last Filed: 11/26/22 08:18> Discharge Plan Discharge Clinical Impression: Mass of joint of left shoulder <Neftali Carlosn - Last Filed: 11/25/22 17:23> Patient Disposition: Still a Patient <Neftali Carlson - Last Filed: 11/25/22 17:23> Prescriptions: No Action quetiapine 50 mg tablet 50 mg PO TID multivitamin [Daily-Cony] Tablet 1 tab PO DAILY 30 Days Qty: 30 0RF ipratropium-albuterol 0.5 mg-3 mg(2.5 mg base)/3 mL solution for nebulization 1 amp inhalation Q4H PRN (Reason: Wheezing) 30 Days Qty: 30 0RF acetaminophen 650 mg tablet extended release 1 tab PO BID PRN (Reason: pain) 30 Days Qty: 60 0RF baclofen 20 mg Tablet 20 mg PO DAILY PRN (Reason: Back Pain) 30 Days Qty: 30 0RF trazodone 50 mg tablet 1 tab PO BEDTIME PRN (Reason: insomnia) omeprazole 40 mg capsule,delayed release(DR/EC) 1 cap PO DAILY@0630 montelukast 10 mg tablet 1 tab PO BEDTIME pravastatin 20 mg tablet 1 tab PO BEDTIME metoprolol succinate 25 mg tablet extended release 24 hr 1 tab PO DAILY albuterol sulfate [Ventolin HFA] 90 mcg/actuation HFA aerosol inhaler 2 puff INHALATION Q4-6H PRN (Reason: Shortness Of Breath Or Wheezing) thiamine HCl (vitamin B1) 100 mg tablet 1 tab PO DAILY aspirin 81 mg tablet,delayed release (DR/EC) 1 tab PO BEDTIME folic acid 1 mg tablet 1 mg PO DAILY <Neftali Carlson - Last Filed: 11/25/22 17:23> Referrals: [facility] [Outside] <Neftali Carlson - Last Filed: 11/25/22 17:23>
[2022-11-25] MEDS: Acetaminophen 325 MG TABLET 975 MG PO (17:24)
--- NOTE | 2022-11-25 17:24 | ECG_ITS ---
Test Reason : SHOULDER PAIN Blood Pressure : / mmHG Vent. Rate : 078 BPM Atrial Rate : 078 BPM P-R Int : 146 ms QRS Dur : 090 ms QT Int : 384 ms P-R-T Axes : 049 -12 038 degrees QTc Int : 437 ms Normal sinus rhythm with sinus arrhythmia Normal ECG When compared with ECG of 16-NOV-2022 17:16, No significant change was found Referred By: Neftali Carlson Electronically Signed By:CAMPOS KELLER MD
[2022-11-25 17:54] LABS: Basophils Percent Auto 0.5 % (0-2); Eosinophils Absolute Auto 0.1 X10*3/uL (0.0-0.4); Eosinophils Percent Auto 3.1 % (0-4); Hematocrit 25.2 % (37.0-47.0); Hemoglobin 7.6 g/dl (12.0-16.0); Imm Gran Abs Auto 0.02 X10*3/uL (0.00-0.03); Imm Gran Pct Auto 0.5 % (0.0-0.4); Lymphocytes Absolute Auto 1.7 X10*3/uL (1.2-4.9); MANUAL DIFF FLAG NO; Mean Corpuscular HGB Conc 30.2 g/dl (31.0-35.0); Mean Corpuscular Hemoglobin 24.1 pg (27.0-33.0); Mean Corpuscular Volume 79.7 fL (80.0-98.0); Mean Platelet Volume 8.6 fL (9.4-12.3); Monocytes Absolute Auto 0.6 X10*3/uL (0.1-1.2); Monocytes Percent Auto 13.3 % (2-11); Neutrophils Absolute Auto 1.8 x10*3/uL (2.0-8.3); Neutrophils Percent Auto 42.6 % (45-73); Platelet Count 322 X10*3/uL (160-400); Red Blood Count 3.16 X10*6/uL (4.20-5.50); Red Cell Distribution Width 23.6 % (11.0-16.0); White Blood Count 4.2 X10*3/uL (4.8-10.8)
[2022-11-25 18:06] LABS: COVID-19 Test Negative (Negative); IDNOW Serial# 16C4AD1C
[2022-11-25 18:17] LABS: Alanine Aminotransferase 6 U/L (0-31); Albumin Level 3.3 g/dL (3.5-5.0); Alkaline Phosphatase 119 U/L (39-117); Anion Gap 12 (12-20); Aspartate Amino Transferase 17 U/L (5-31); Bilirubin Total 0.2 mg/dL (0.0-1.0); Blood Urea Nitrogen 20 mg/dL (9-16); Calcium 8.3 mg/dL (8.4-10.2); Carbon Dioxide 23 mmol/L (22-29); Chloride 104 mmol/L (96-108); Creatinine Clr Calc Pharmacy 48.1; Estimated Glomerular Filt Rate 44; Glucose Random 101 mg/dL (60-115); Potassium 5.1 mmol/L (3.3-5.1); Sodium 134 mmol/L (135-145); Total Protein 6.5 g/dL (6.5-8.0)
[2022-11-26 05:04] VITALS: BP 124/70; PULSE 72; RESP 16; TEMP 36.6; O2SAT 97
[2022-11-26 07:49] VITALS: BP 124/70; PULSE 72; O2SAT 97
[2022-11-26 07:53] VITALS: BP 157/61; PULSE 81; RESP 12
[2022-11-26 07:57] LABS: Ethanol < 10 mg/dL
[2022-11-26 10:37] LABS: Appearance Urine Clear; Color Urine Yellow; Glucose Urine UA Negative (Negative); Leukocyte Esterase Urine Negative (Negative); Nitrite Urine Negative (Negative); UMIC TRIGGER UACC YES; Urine Blood Small (1+) (Negative); Urine Ketones Negative (Negative); Urine Protein Negative (Neg-Trace)
[2022-11-26 10:49] LABS: Amphetamine Screen Urine Not Detected (Not Detect); Barbiturates, Urine Not Detected (Not Detect); Benzodiazepines Screen Urine Not Detected (Not Detect); Cannabinoid Screen Urine POSITIVE (Not Detect); Cocaine Screen Urine Not Detected (Not Detect); Fentanyl, urine Not Detected (Not Detect); Opiate Screen Urine Not Detected (Not Detect); Phencyclidine Screen Urine Not Detected (Not Detect)
[2022-11-26 10:59] LABS: Bacteria Urine None Seen (None Seen); Hyaline Casts Urine 0-2 /LPF (0-2); WBC Urine 0-5 /HPF (0-5)
--- NOTE | 2022-11-26 13:05 | PC.NURSE ---
patient sleeping. chest rise and fall equal and unlabored. able to make needs known.
--- NOTE | 2022-11-26 13:37 | PHA.MEDREC ---
Pharmacy Consult ? Medication Reconciliation Pharmacy has completed the medication reconciliation. Patient states she doesn't know any of her medications but only takes what she gets filled at [facility]. Used claim history to complete med rec.
[2022-11-26] MEDS: QUEtiapine Fumarate 50 MG TABLET PO ×2 (16:03→21:52)
--- NOTE | 2022-11-26 16:09 | MHC.CM.ED ---
Addendum entered by Risa Lozano 11/26/22 16:12: Patient was d/c'd home with [facility] last ER visit. Original Note: Received case management consult from Dr Levy. Patient came to the ER due to shoulder pain. Work up essentially negative. Patient is well known to case management. Patient has been difficult to place in the past due to HCP/sig, Juanjo signing patient out STR in the past. Referral broadcasted within 50 miles of patient's residence. Continue to monitor for d/c needs.
[2022-11-26 19:13] VITALS: BP 135/75; PULSE 81; RESP 16; TEMP 36.6; O2SAT 94
--- NOTE | 2022-11-26 21:16 | MHC.CM.ED ---
CM met with patient. Thinks she is here for a sore shoulder. HCP invoked. Korsakoff's dementia/schizophrenia. Pt has been cooperative and pleasant. CM spoke with Juanjo. Again, as per last ED visit, Juanjo claims that he cannot care for her, that she is crazy and doesn't listen, that she won't go to her program (daycare) and that she cannot come home, that she needs to live in a senior care . CM reminded Juanjo that he said this when she was last in the ED from 11/04-11/18, and then he took her home. Juanjo tells CM this time he cannot take her home. Last admission Juanjo shared that he had concerns about paying his rent if she went to a senior care. I believe that there is an open case with [facility], as I have filed on her behalf in the past. CM left a message with [facility] therapeutic case manager Cinthia Luther ([phone] and also filed again with [facility] intake #[id number]. If CM does find a bed for this patient, she will need PASRR 1&2. Jaylene/psych admission to [facility] 04/24-04/29/22 and has [facility] for behavioral health medication management. Pt lives with S.O/invoked HCP Juanjo Reginald ([phone]). Uses rollator walker. HCP invoked indefinately 08/29/2020. On file. [facility] x2. Referrals placed in 50 mile radius. CM will follow for discharge planning.
[2022-11-26] MEDS: Pravastatin Sodium 20 MG TABLET PO (21:51)
[2022-11-26] MEDS: Aspirin Enteric Coated 81 MG TABLET.DR PO (21:52)
[2022-11-26] MEDS: traZODone HCL 50 MG TABLET PO (21:52)
[2022-11-26] MEDS: Acetaminophen 325 MG TABLET 650 MG PO (21:52)
[2022-11-26] MEDS: Montelukast Sodium 10 MG TABLET PO (21:52)
[2022-11-26 23:26] VITALS: BP 129/65; PULSE 74; RESP 18; TEMP 36.6
--- NOTE | 2022-11-27 01:28 | MHC.EDTECH ---
pt was incontinent of urine, bed sheets and chucks were changed and pt cleaned. pt given pudding and saltines.
--- NOTE | 2022-11-27 05:01 | MHC.EDTECH ---
pt incontinent of bladder. Pt taken to bathroom and cleaned and changed. Pt asked for a sandwich and ice cream 1/2 sandwich and diet gingerale given.
[2022-11-27 05:09] VITALS: BP 146/82; PULSE 88; RESP 18; TEMP 36.8; O2SAT 92
[2022-11-27] MEDS: Omeprazole 40 MG CAPSULE.DR PO (06:06)
[2022-11-27 08:00] VITALS: BP 156/72; PULSE 110; RESP 14; TEMP 37.1; O2SAT 94
[2022-11-27] MEDS: Thiamine HCL 100 MG TABLET PO (08:59)
[2022-11-27] MEDS: Multivitamin TABLET 1 TAB PO (08:59)
[2022-11-27] MEDS: QUEtiapine Fumarate 50 MG TABLET PO ×3 (08:59→22:00)
[2022-11-27] MEDS: Metoprolol Succinate ER 25 MG TAB.ER.24H PO (08:59)
[2022-11-27] MEDS: Folic Acid 1 MG TABLET PO (08:59)
[2022-11-27] MEDS: Acetaminophen 325 MG TABLET 650 MG PO ×2 (09:05→22:06)
--- NOTE | 2022-11-27 16:09 | MHC.CM.ED ---
CM received telephone call from Inge Blackburn at [facility] ([phone] ext [phone]) regarding this patient. Message left for return call. CM following for discharge planning.
[2022-11-27 21:44] VITALS: BP 146/82; PULSE 78; RESP 16; TEMP 36.8; O2SAT 94
[2022-11-27 22:00] VITALS: BP 140/80; PULSE 80; RESP 16; TEMP 36.7; O2SAT 96
[2022-11-27] MEDS: Aspirin Enteric Coated 81 MG TABLET.DR PO (22:00)
[2022-11-27] MEDS: Montelukast Sodium 10 MG TABLET PO (22:00)
[2022-11-27] MEDS: Pravastatin Sodium 20 MG TABLET PO (22:00)
[2022-11-27] MEDS: traZODone HCL 50 MG TABLET PO (22:01)
[2022-11-28] MEDS: Baclofen 20 MG TABLET PO (01:13)
--- NOTE | 2022-11-28 01:17 | PC.NURSE ---
Pt reports pain to L shoulder mass. Medication administered per NOV. Pt requests jackie crackers and gingerale.
--- NOTE | 2022-11-28 02:38 | PC.NURSE ---
Pt assisted to bedside commode. Pt was able to urinate. Pt assisted back to bed 1 assit.
--- NOTE | 2022-11-28 03:44 | PC.NURSE ---
Pt assisted to bedside commode. Pt urinated and had a small bowel movement soft color brown.
[2022-11-28 06:09] VITALS: BP 149/70; PULSE 80; RESP 18; O2SAT 97
[2022-11-28] MEDS: Omeprazole 40 MG CAPSULE.DR PO (06:16)
[2022-11-28] MEDS: Acetaminophen 325 MG TABLET 650 MG PO ×2 (08:15→20:54)
[2022-11-28] MEDS: Multivitamin TABLET 1 TAB PO (08:17)
[2022-11-28] MEDS: QUEtiapine Fumarate 50 MG TABLET PO ×3 (08:17→20:53)
[2022-11-28] MEDS: Thiamine HCL 100 MG TABLET PO (08:18)
[2022-11-28] MEDS: Folic Acid 1 MG TABLET PO (08:18)
[2022-11-28] MEDS: Metoprolol Succinate ER 25 MG TAB.ER.24H PO (08:18)
[2022-11-28] MEDS: Ibuprofen 600 MG TABLET PO (13:32)
[2022-11-28 15:52] VITALS: BP 138/67; PULSE 95; RESP 16; TEMP 37.2; O2SAT 98
--- NOTE | 2022-11-28 20:10 | PC.NURSE ---
impulsive, but redirectable, strong nonverbal signs of pain especially with repositioning. WHen getting OOB to commode there is palpable and audible crepitus to shoulders and lower back, PA aware. New order for ibuprofen Q6 hrs PRN, administered with good effect. after tylenol and ibuprofen, 0/10 pain
[2022-11-28] MEDS: Pravastatin Sodium 20 MG TABLET PO (20:53)
[2022-11-28] MEDS: traZODone HCL 50 MG TABLET PO (20:53)
[2022-11-28] MEDS: Montelukast Sodium 10 MG TABLET PO (20:54)
[2022-11-28] MEDS: Aspirin Enteric Coated 81 MG TABLET.DR PO (20:54)
[2022-11-29] MEDS: Baclofen 20 MG TABLET PO (01:01)
[2022-11-29] MEDS: Ibuprofen 600 MG TABLET PO ×4 (01:01→21:10)
[2022-11-29] MEDS: Omeprazole 40 MG CAPSULE.DR PO (05:16)
[2022-11-29 06:31] VITALS: BP 144/69; PULSE 85; RESP 15; TEMP 36.8; O2SAT 97
--- NOTE | 2022-11-29 06:32 | MHC.EDTECH ---
Pt 1x assisted to bedside commode. Pt assisted with pericare. Pt 1x assisted back to bed. Warm blanket given and call jones in reach
[2022-11-29 07:37] LABS: Glucose, Whole Blood 119 mg/dL (60-115)
[2022-11-29] MEDS: Metoprolol Succinate ER 25 MG TAB.ER.24H PO (10:03)
[2022-11-29] MEDS: Folic Acid 1 MG TABLET PO (10:03)
[2022-11-29] MEDS: Thiamine HCL 100 MG TABLET PO (10:04)
[2022-11-29] MEDS: Multivitamin TABLET 1 TAB PO (10:04)
[2022-11-29] MEDS: QUEtiapine Fumarate 50 MG TABLET PO ×3 (10:04→21:08)
--- NOTE | 2022-11-29 10:30 | MHC.EDTECH ---
Patient wash and clean ,bed change and now relaxing watching TV. giving a snack.
--- NOTE | 2022-11-29 12:50 | PC.NURSE ---
pt' significant other samantha ([phone]) called [facility] and was updated on pt status.
[2022-11-29 13:02] LABS: Glucose, Whole Blood 142 mg/dL (60-115)
--- NOTE | 2022-11-29 13:30 | MHC.CM.PN ---
SPOUSE, MIKO, UPDATED WITH POSSIBLE BED ON WEDNESDAY IN [place] BUT THIS IS NOT YET A SECURED OFFER. SPOUSE IS HOPING FOR AT LEAST 6 MONTHS CASE MANAGEMENT FOLLOWING AND WILL PROVIDE UPDATES.
[2022-11-29 14:35] VITALS: BP 138/73; PULSE 90; RESP 14; TEMP 36.4; O2SAT 99
[2022-11-29] MEDS: Acetaminophen 325 MG TABLET 650 MG PO (14:46)
[2022-11-29 18:35] LABS: Glucose, Whole Blood 160 mg/dL (60-115)
[2022-11-29] MEDS: Aspirin Enteric Coated 81 MG TABLET.DR PO (21:10)
[2022-11-29 21:18] LABS: Glucose, Whole Blood 135 mg/dL (60-115)
[2022-11-29] MEDS: Pravastatin Sodium 20 MG TABLET PO (21:24)
[2022-11-29] MEDS: Montelukast Sodium 10 MG TABLET PO (21:24)
[2022-11-29] MEDS: traZODone HCL 50 MG TABLET PO (21:43)
[2022-11-29 21:47] VITALS: BP 165/86; PULSE 92; RESP 18; TEMP 36.7; O2SAT 100
--- NOTE | 2022-11-29 22:35 | MHC.EDTECH ---
pt was assisted to the commode. pt is clean and resting in the bed
--- NOTE | 2022-11-30 00:11 | PC.NURSE ---
Assumed care at 07:00. Patient alert and oriented x4, does have emotional outburts about pain and is jovially loud at times. Patient mental status seems fairly clear, discussed with CM, who will follow-up in morning. Patient with palpable and audible crepitus in joints including hips and shoulders. Patient concerned about large effusion/swelling on left shoulder, MD aware. Patinet reports pain 10/10 with movement, especially of left shoulder, but also of hips, and denies pain at rest, discussed with MD and new orders for lidocaine patch to left shoulder, patient also medicated with PRN tylenol and PRN ibuprofen per emar. POC glucose not ordered in background of dietary controlled DM, discussed with MD and POC QIDACHS ordered, also, patient with voracious appetite, was given very many snacks of pudding, jackie crackers, and juice per her request, POC unremarkable, but patient did have hot flash in evening with dry skin and anxiety associated, MD notified, and advised to refrain from sugary snacks overnight and encourage PO water, patient educated and attempting to comply.
[2022-11-30] MEDS: Acetaminophen 325 MG TABLET 650 MG PO ×2 (02:41→20:29)
[2022-11-30] MEDS: Baclofen 20 MG TABLET PO (02:41)
[2022-11-30 03:30] VITALS: RESP 18
--- NOTE | 2022-11-30 04:02 | PC.NURSE ---
Assumed care at 3:23am from REAGAN Moyer, pt is sleeping at this time no sign of distress, Will continue to monitor.
[2022-11-30] MEDS: Ibuprofen 600 MG TABLET PO ×3 (04:31→23:10)
--- NOTE | 2022-11-30 04:37 | PC.NURSE ---
pt medicated per Mar, pt requesting sandwich and a drink, provided. pt positioned upright in bed to eat. Will continue to monitor.
[2022-11-30 04:39] VITALS: BP 156/76; PULSE 80; RESP 16; TEMP 35.8; O2SAT 98
--- NOTE | 2022-11-30 06:32 | PC.NURSE ---
pt repositioned, pt refused morning medication. return to [facility] in the main.
--- NOTE | 2022-11-30 06:34 | PC.NURSE ---
Pt bed alarmed check and on.
[2022-11-30 07:16] LABS: Glucose, Whole Blood 123 mg/dL (60-115)
[2022-11-30] MEDS: Omeprazole 40 MG CAPSULE.DR PO (07:18)
[2022-11-30 07:23] VITALS: BP 182/89; PULSE 87; RESP 18; O2SAT 98
[2022-11-30] MEDS: Thiamine HCL 100 MG TABLET PO (08:04)
[2022-11-30] MEDS: Folic Acid 1 MG TABLET PO (08:04)
[2022-11-30] MEDS: Lidocaine 4 % Patch ADH..PATCH 1 PATCH TRANSDERMA (08:04)
[2022-11-30] MEDS: QUEtiapine Fumarate 50 MG TABLET PO ×3 (08:04→20:29)
[2022-11-30] MEDS: Metoprolol Succinate ER 25 MG TAB.ER.24H PO (08:04)
[2022-11-30] MEDS: Multivitamin TABLET 1 TAB PO (08:04)
--- NOTE | 2022-11-30 10:12 | PC.NURSE ---
Patient continues to scream out. Alert and oriented x3, able to make needs known. Using commode at bedside.
--- NOTE | 2022-11-30 11:46 | MHC.CM.ED ---
Addendum entered by Risa Lozano 11/30/22 12:08: Clinical updates sent to [facility]. Original Note: Patient remains in ER overflow. Waiting to hear from [facility] and [facility] if they have a bed available for patient. Patient will need [facility] PASRR Level 2. T/W already submitted for this. Continue to monitor for d/c needs.
[2022-11-30 12:51] LABS: Glucose, Whole Blood 101 mg/dL (60-115)
--- NOTE | 2022-11-30 15:03 | MHC.CM.ED ---
[facility] is able to offer a bed. Patient will leave tomorrow 12/01 at 10am. Amy made aware via telephone and agreeable. Mavis HORTA aware. Naveen ISSA booked. Med nec with chart. Continue to monitor for d/c needs.
[2022-11-30 16:10] VITALS: BP 141/54; PULSE 84; RESP 18; O2SAT 97
[2022-11-30 17:31] LABS: Glucose, Whole Blood 139 mg/dL (60-115)
[2022-11-30] MEDS: Pravastatin Sodium 20 MG TABLET PO (20:29)
[2022-11-30] MEDS: Montelukast Sodium 10 MG TABLET PO (20:29)
[2022-11-30] MEDS: Aspirin Enteric Coated 81 MG TABLET.DR PO (20:29)
[2022-11-30] MEDS: traZODone HCL 50 MG TABLET PO (20:32)
[2022-11-30 22:00] VITALS: BP 155/84; PULSE 86; RESP 16; TEMP 36.3; O2SAT 95
[2022-12-01] MEDS: Omeprazole 40 MG CAPSULE.DR PO (05:23)
[2022-12-01 05:33] VITALS: BP 152/70; PULSE 79; RESP 18; TEMP 36.6; O2SAT 95
[2022-12-01] MEDS: Metoprolol Succinate ER 25 MG TAB.ER.24H PO (07:31)
[2022-12-01] MEDS: Multivitamin TABLET 1 TAB PO (07:31)
[2022-12-01] MEDS: Folic Acid 1 MG TABLET PO (07:31)
[2022-12-01] MEDS: QUEtiapine Fumarate 50 MG TABLET PO (07:31)
[2022-12-01] MEDS: Lidocaine 4 % Patch ADH..PATCH 1 PATCH TRANSDERMA (07:32)
[2022-12-01] MEDS: Thiamine HCL 100 MG TABLET PO (07:32)
--- NOTE | 2022-12-01 07:47 | MHC.EDTECH ---
pt was given breakfast tray but would like to stay laying down at this time due to experiencing some pain, rn aware.
--- NOTE | 2022-12-01 08:15 | PC.NURSE ---
assumed care of patient, pt resting comfortably in bed, am meds given, breakfast tray delivered and set up for patient, VSS
--- NOTE | 2022-12-01 09:01 | PC.NURSE ---
RN to RN report given to [facility]
--- NOTE | 2022-12-01 09:35 | PC.NURSE ---
patient swabbed for COVID and sent to lab
[2022-12-01 10:21] LABS: COVID-19 Test Negative (Negative); IDNOW Serial# BCCEAD1C
== END 2022-12-01 10:25 | disposition skilled nursing facility (03) ==
PROVIDERS: Physician Assistant; Physician Assistant Medical; Emergency Provider Emergency Medicine; PCP Internal Medicine Geriatric Medicine
DX: M75.92 Shoulder lesion, unspecified, left shoulder (principal); M25.512 Pain in left shoulder; M25.412 Effusion, left shoulder; R00.0 Tachycardia, unspecified; Z20.822 Contact with and (suspected) exposure to COVID-19; E11.9 Type 2 diabetes mellitus without complications; I10 Essential (primary) hypertension; F03.90 Unspecified dementia, unspecified severity, without behavioral disturbance, psychotic disturbance, mood disturbance, and anxiety; F04 Amnestic disorder due to known physiological condition; F31.9 Bipolar disorder, unspecified; F10.10 Alcohol abuse, uncomplicated; Y90.0 Blood alcohol level of less than 20 mg/100 ml; Z87.891 Personal history of nicotine dependence; Z79.82 Long term (current) use of aspirin; Z79.02 Long term (current) use of antithrombotics/antiplatelets; Z79.899 Other long term (current) drug therapy
CPT/HCPCS: 36415; 80053; 80307; 81001; 82077; 82947; 85025; 87635; 93005; 97162; 99285

== ENCOUNTER 2023-01-04 12:26 | Emergency (ER) | payer MEDICARE, MEDICAID, SELFPAY ==
--- NOTE | ~2023-01-04 | XR_ITS ---
EXAMINATION: Chest and x-ray left shoulder. CLINICAL INDICATION: Shoulder pain. Fever. COMPARISON: Chest 11/05/2022. TECHNIQUE: Chest one view. Left shoulder 2 views. FINDINGS: Chest: The lungs are well-expanded and clear of acute process. Heart size and pulmonary vascularity is normal. No gross bony abnormality seen. There is mild spondylosis mid and lower dorsal spine. Left shoulder: There is mild loss of left glenohumeral joint space with inferior spurring. No visible acute fracture or dislocation seen. The AC joint is unremarkable. The soft tissues are normal. No abnormal calcification. XR/XR chest 1V IMPRESSION: 1. Unremarkable chest exam. 2. Mild degenerative changes left shoulder joint. No visible acute fracture or dislocation seen. There is mild inferior spurring.
--- NOTE | ~2023-01-04 | XR_ITS ---
EXAMINATION: Chest and x-ray left shoulder. CLINICAL INDICATION: Shoulder pain. Fever. COMPARISON: Chest 11/05/2022. TECHNIQUE: Chest one view. Left shoulder 2 views. FINDINGS: Chest: The lungs are well-expanded and clear of acute process. Heart size and pulmonary vascularity is normal. No gross bony abnormality seen. There is mild spondylosis mid and lower dorsal spine. Left shoulder: There is mild loss of left glenohumeral joint space with inferior spurring. No visible acute fracture or dislocation seen. The AC joint is unremarkable. The soft tissues are normal. No abnormal calcification. XR/XR shoulder LT min 2V IMPRESSION: 1. Unremarkable chest exam. 2. Mild degenerative changes left shoulder joint. No visible acute fracture or dislocation seen. There is mild inferior spurring.
[2023-01-04 12:43] VITALS: BP 112/49; PULSE 106; RESP 18; TEMP 37.7; O2SAT 98
[2023-01-04 12:44] VITALS: BP 112/49; BP 140/70; PULSE 101; PULSE 104; RESP 20; TEMP 37.7; O2SAT 96; O2SAT 98; BMI 38.0
--- NOTE | 2023-01-04 12:45 | ECG_ITS ---
Test Reason : FEVER Blood Pressure : / mmHG Vent. Rate : 110 BPM Atrial Rate : 110 BPM P-R Int : 140 ms QRS Dur : 092 ms QT Int : 356 ms P-R-T Axes : 064 011 057 degrees QTc Int : 481 ms Sinus tachycardia with Premature atrial complexes Incomplete right bundle branch block Borderline ECG When compared with ECG of 25-NOV-2022 18:01, No significant change was found Referred By: Feli Moran Electronically Signed By:CAMPOS KELLER MD
--- NOTE | 2023-01-04 12:45 | ED.FEVER ---
HPI - Fever General Chief Complaint: Fever Stated Complaint: FEVER 100,BODYACHES PER EMS Time Seen by Provider: 01/04/23 12:43 Source: patient and RN notes reviewed Mode of arrival: EMS Limitations: no limitations History of Present Illness HPI Narrative: This is a 67-year-old female, with a past medical history of bipolar disorder, alcohol use disorder, hypertension, chronic back pain, diabetes, who presents to the emergency department for evaluation of body aches x1 week and a fever of 100? F per her VNA. Patient reports that over this past week she has had generalized body aches. Patient denies any headaches, dizziness, sore throat, ear pain, nasal congestion runny nose, cough, chest pain, palpitations, abdominal pain, nausea vomiting or diarrhea. Denies dysuria, hematuria, urinary urgency or frequency. MD elicited complaint: fever and malaise Pertinent past history: diabetes Exacerbating factors: nothing Relieving factors: nothing Associated symptoms: denies other symptoms Treatments prior to arrival fever: none Related Data Home Medications Medication Instructions Recorded Confirmed quetiapine 50 mg tablet 50 mg PO TID 07/26/22 11/26/22 albuterol sulfate 90 mcg/actuation 2 puff inhalation Q4-6H PRN 11/26/22 11/26/22 aerosol inhaler (Ventolin HFA) Shortness Of Breath Or Wheezing aspirin 81 mg tablet,delayed 1 tab PO BEDTIME 11/26/22 11/26/22 release folic acid 1 mg tablet 1 mg PO DAILY 11/26/22 11/26/22 metoprolol succinate 25 mg 1 tab PO DAILY 11/26/22 11/26/22 tablet,extended release 24 hr montelukast 10 mg tablet 1 tab PO BEDTIME 11/26/22 11/26/22 omeprazole 40 mg capsule,delayed 1 cap PO DAILY@0630 11/26/22 11/26/22 release pravastatin 20 mg tablet 1 tab PO BEDTIME 11/26/22 11/26/22 thiamine HCl (vitamin B1) 100 mg 1 tab PO DAILY 11/26/22 11/26/22 tablet trazodone 50 mg tablet 1 tab PO BEDTIME PRN insomnia 11/26/22 11/26/22 Previous Rx's Medication Instructions Recorded acetaminophen 650 mg 1 tab PO BID PRN pain 30 days #60 04/29/22 tablet,extended release tabs baclofen 20 mg tablet 20 mg PO DAILY PRN Back Pain 30 04/29/22 days #30 tabs ipratropium 0.5 mg-albuterol 3 mg 1 amp inhalation Q4H PRN Wheezing 04/29/22 (2.5 mg base)/3 mL nebulization 30 days #30 multiple units soln multivitamin (Daily-Cony tablet) 1 tab PO DAILY 30 days #30 tabs 04/29/22 Allergies Allergy/AdvReac Type Severity Reaction Status Date / Time fluticasone Allergy Unknown Verified 11/25/22 17:15 [From Advair Diskus] salmeterol Allergy Unknown Verified 11/25/22 17:15 [From Advair Diskus] paroxetine [From Paxil] AdvReac Intermediate Nausea and Verified 11/25/22 17:15 Vomiting Review of Systems Review of Systems: Yes all other systems are reviewed and are negative [facility] Past Medical History Attestation statement: The following information was validated with the patient. Medical History Acute hyponatremia Acute hyponatremia Alcohol use disorder Bipolar 1 disorder Bipolar I disorder Cannabis use disorder, moderate, dependence Chronic hyponatremia Congestive heart failure COPD (chronic obstructive pulmonary disease) Coronary artery disease Dementia Diabetes Effusion of shoulder joint, left Family history of breast cancer Hypertension Korsakoff disease Mass of joint of left shoulder Osteoarthritis Schizophrenia Shortness of breath Sleep apnea Surgical History Hx of appendectomy Family History Family History Sister Breast cancer, Onset Age: 40 Sister Breast cancer, Onset Age: 50 Social History Social History Household Members: Spouse Housing: Apartment Do you presently have visiting nurse or other home services: Yes Unable to assess alcohol history related to: Unknown Alcohol intake: current Alcohol intake frequency: does not drink Alcohol type: wine Patient Tobacco Use Status: Former Tobacco user Tobacco use type: Cigarette Cigarettes Per Day: 6 Years Smoked: 53 e-Cigarette/Vaping Use: Never Used Second Hand Smoke Exposure: Yes Use of substances other than those prescribed or required for medical reasons: No Substance Use Type: Marijuana Advance Directives: Yes Advance Directives on File: Yes Advance Directives Date on File: 10/10/20 service: No Current occupational status: unemployed, disabled and other Sexual orientation: Straight/Heterosexual Physical Exam Vital Signs: Vital Signs: Last Vital Signs Temp 99 F 01/04/23 15:56 Pulse 92 01/04/23 16:21 Resp 20 01/04/23 16:21 BP 160/77 H 01/04/23 16:21 Pulse Ox 99 01/04/23 16:21 O2 Del Method Room Air 01/04/23 16:21 BMI result Body Mass Index 38.0 Appearance: Alert. Oriented X3. No acute distress. Eyes: Pupils equal, round and reactive to light. EOMI ENT: Pharynx normal. tonsils are nonerythematous, nonedematous. Neck: Normal inspection. Neck supple. CVS: Normal heart rate and rhythm. Pulses normal. S1-S2 regular Respiratory: No respiratory distress. Breath sounds normal. Lungs clear to auscultation, no rales, or rhonchi Abdomen: Soft and nontender. +BS x4 Skin: Skin warm and dry. Normal skin color. Normal skin turgor. Extremities: No lower extremity edema. Chronic venous stasis changes noted circumferentially at the lower extremities bilaterally. The pedal pulses are 2+ bilaterally. Left shoulder with palpable ?lipoma with no overlying erythema or warmth. Tenderness to palpation noted diffusely throughout the entire left shoulder joint. Good range of motion of the left wrist, elbow. Limited range of motion of the left shoulder secondary to pain. Neuro: Oriented X 3. No motor deficit. No sensory deficit. CN II-XII intact. Course Reevaluation(s) Reevaluation #1: Chest x-ray unremarkable, mild degenerative changes of the left shoulder joint with no visible acute fracture or dislocation. There is mild inferior spurring. Urinalysis still pending. Labs reveal chronic in H&H 7.4/23.6, MCV 75.2; this is around her baseline, slowly down trending. Viral swabs are negative today. Patient remains stable, vital signs within normal limits,, resting comfortably in stretcher. Otherwise workup so far is unremarkable, pending urinalysis. Time: 15:48 Reevaluation #2: Urinalysis shows small blood likely related straight catheter, no evidence of infection. Patient remains stable, patient's temperature 99? F, oxygen saturation 99% on room air pulse 92. Discussed results with patient, either to return back home. Patient stable for discharge. Time: 16:26 Medications Administered Discontinued Medications Generic Name Dose Route Start Last Admin Trade Name Alexandrea PRN Reason Stop Dose Admin Acetaminophen 975 mg 01/04/23 13:27 01/04/23 14:21 Acetaminophen 325 Mg Tablet PO 01/04/23 13:28 975 mg ONCE ONE Administration Medical Decision Making Medical Decision Making [facility] Narrative: This is a 67-year-old female, with a past medical history of bipolar disorder, alcohol use disorder, hypertension, chronic back pain, diabetes, presenting to the emergency department for evaluation of fevers and body aches. Blood pressure 112/49, pulse of 101, rectal temperature 99.9?. Oxygen saturation 98% on room air. Patient is nontoxic appearing. On examination patient is neurologically intact, with full range of motion of her neck, abdomen is soft non-tender. Patient has mild tenderness overlying right hip, with no overlying erythema, edema or increased warmth. Left shoulder with mild tenderness to palpation, good range of motion. Limited range of motion of the left shoulder secondary to pain. Differential Diagnosis Differential Diagnoses: The differential diagnosis associated with the presentation includes Pneumonia, UTI, viral syndrome, left shoulder strain Lab Data 01/04/23 14:09 01/04/23 14:09 Labs: Lab Results 01/04/23 01/04/23 01/04/23 Range/Units 14:09 14:09 14:09 WBC 6.8 (4.8-10.8) X10*3/uL RBC 3.14 L (4.20-5.50) X10*6/uL Hgb 7.4 L (12.0-16.0) g/dl Hct 23.6 L (37.0-47.0) % MCV 75.2 L (80.0-98.0) fL MCH 23.6 L (27.0-33.0) pg MCHC 31.4 (31.0-35.0) g/dl RDW 22.2 H (11.0-16.0) % Plt Count 248 (160-400) X10*3/uL MPV 8.2 L (9.4-12.3) fL Immature Gran % (Auto) 0.6 H (0.0-0.4) % Neut % (Auto) 59.2 (45-73) % Lymph % (Auto) 26.3 (20-40) % Branch % (Auto) 12.6 H (2-11) % Eos % (Auto) 1.0 (0-4) % Baso % (Auto) 0.3 (0-2) % Lymph # (Auto) 1.8 (1.2-4.9) X10*3/uL Branch # (Auto) 0.9 (0.1-1.2) X10*3/uL Eos # (Auto) 0.1 (0.0-0.4) X10*3/uL Baso # (Auto) 0.0 (0.0-0.2) X10*3/uL Abs Immat Gran (auto) 0.04 H (0.00-0.03) X10*3/uL Absolute Neuts (auto) 4.1 (2.0-8.3) x10*3/uL Absolute Nucleated RBC 0.000 (0.0-0.012) X10*3/uL Nucleated RBC % (auto) 0.0 (0.0-0.2) /100WBC Sodium 137 (135-145) mmol/L Potassium 4.6 (3.3-5.1) mmol/L Chloride 104 (96-108) mmol/L Carbon Dioxide 27 (22-29) mmol/L Anion Gap 11 L (12-20) BUN 22 H (9-16) mg/dL Creatinine 1.19 (0.5-1.4) mg/dL Estim Creat Clear Calc 49.6 Estimated GFR 45 Random Glucose 123 H (60-115) mg/dL Calcium 8.1 L (8.4-10.2) mg/dL Magnesium 2.2 (1.6-2.6) mg/dL Total Bilirubin 0.2 (0.0-1.0) mg/dL Direct Bilirubin < 0.2 (0.0-0.5) mg/dL AST 11 (5-31) U/L ALT 5 (0-31) U/L Alkaline Phosphatase 135 H (39-117) U/L Total Protein 5.7 L (6.5-8.0) g/dL Albumin 3.0 L (3.5-5.0) g/dL Urine Color Urine Appearance Urine pH (5.0-9.0) Ur Specific [place] (1.005-1.025) Urine Protein (Neg-Trace) mg/dL Urine Glucose (UA) (Negative) mg/dL Urine Ketones (Negative) mg/dL Urine Blood (Negative) Urine Nitrite (Negative) Ur Leukocyte Esterase (Negative) Urine RBC (0-2) /HPF Urine WBC (0-5) /HPF Ur Squamous Epith Cells (0-2) /HPF Urine Bacteria (None Seen) Hyaline Casts (0-2) /LPF Influenza Type A (PCR) NEGATIVE (Negative) Influenza Type B (PCR) NEGATIVE (Negative) RSV RNA Qual (PCR) NEGATIVE (Negative) SARS-CoV-2 RNA (RT-PCR) NEGATIVE (Negative) 01/04/23 Range/Units 15:56 WBC (4.8-10.8) X10*3/uL RBC (4.20-5.50) X10*6/uL Hgb (12.0-16.0) g/dl Hct (37.0-47.0) % MCV (80.0-98.0) fL MCH (27.0-33.0) pg MCHC (31.0-35.0) g/dl RDW (11.0-16.0) % Plt Count (160-400) X10*3/uL MPV (9.4-12.3) fL Immature Gran % (Auto) (0.0-0.4) % Neut % (Auto) (45-73) % Lymph % (Auto) (20-40) % Branch % (Auto) (2-11) % Eos % (Auto) (0-4) % Baso % (Auto) (0-2) % Lymph # (Auto) (1.2-4.9) X10*3/uL Branch # (Auto) (0.1-1.2) X10*3/uL Eos # (Auto) (0.0-0.4) X10*3/uL Baso # (Auto) (0.0-0.2) X10*3/uL Abs Immat Gran (auto) (0.00-0.03) X10*3/uL Absolute Neuts (auto) (2.0-8.3) x10*3/uL Absolute Nucleated RBC (0.0-0.012) X10*3/uL Nucleated RBC % (auto) (0.0-0.2) /100WBC Sodium (135-145) mmol/L Potassium (3.3-5.1) mmol/L Chloride (96-108) mmol/L Carbon Dioxide (22-29) mmol/L Anion Gap (12-20) BUN (9-16) mg/dL Creatinine (0.5-1.4) mg/dL Estim Creat Clear Calc Estimated GFR Random Glucose (60-115) mg/dL Calcium (8.4-10.2) mg/dL Magnesium (1.6-2.6) mg/dL Total Bilirubin (0.0-1.0) mg/dL Direct Bilirubin (0.0-0.5) mg/dL AST (5-31) U/L ALT (0-31) U/L Alkaline Phosphatase (39-117) U/L Total Protein (6.5-8.0) g/dL Albumin (3.5-5.0) g/dL Urine Color Yellow Urine Appearance Clear Urine pH 6.5 (5.0-9.0) Ur Specific [place] 1.010 (1.005-1.025) Urine Protein Negative (Neg-Trace) mg/dL Urine Glucose (UA) Negative (Negative) mg/dL Urine Ketones Negative (Negative) mg/dL Urine Blood Small (1+) H (Negative) Urine Nitrite Negative (Negative) Ur Leukocyte Esterase Negative (Negative) Urine RBC 6-10 H (0-2) /HPF Urine WBC 0-5 (0-5) /HPF Ur Squamous Epith Cells 0-2 (0-2) /HPF Urine Bacteria None Seen (None Seen) Hyaline Casts 0-2 (0-2) /LPF Influenza Type A (PCR) (Negative) Influenza Type B (PCR) (Negative) RSV RNA Qual (PCR) (Negative) SARS-CoV-2 RNA (RT-PCR) (Negative) Independent Interpretation I performed an independent interpretation of an: Plain X-Ray Interpretation: Unremarkable chest x-ray. Mild degenerative changes seen in the left shoulder - I agree with radiology report. Radiology Impression Discussion of test interpretation with radiology: I have reviewed the radiologist's reading. Radiologist Impression: EXAMINATION: Chest and x-ray left shoulder. CLINICAL INDICATION: Shoulder pain. Fever. COMPARISON: Chest 11/05/2022. TECHNIQUE: Chest one view. Left shoulder 2 views. FINDINGS: Chest: The lungs are well-expanded and clear of acute process. Heart size and pulmonary vascularity is normal. No gross bony abnormality seen. There is mild spondylosis mid and lower dorsal spine. Left shoulder: There is mild loss of left glenohumeral joint space with inferior spurring. No visible acute fracture or dislocation seen. The AC joint is unremarkable. The soft tissues are normal. No abnormal calcification. XR/XR shoulder LT min 2V IMPRESSION: 1.? Unremarkable chest exam. 2.? Mild degenerative changes left shoulder joint. No visible acute fracture or dislocation seen. There is mild inferior spurring. ? Dictated By: Aditya Bhardwaj MD Discharge Plan Discharge Clinical Impression: Left shoulder pain, Myalgia Instructions: Shoulder Pain (ED) Additional Instructions: You tested negative for COVID, flu, and RSV today. Your chest x-ray was normal. Your left shoulder x-ray shows mild degenerative changes and bone spurring. Your urine was not infected today. Follow-up with your primary care physician regarding this visit. Take Tylenol as directed as needed. Return with any new or worsening symptoms. Jere negativo para COVID, gripe y RSV hoy. Phillips radiograf?a de t?rax fue normal. La radiograf?a de phillips hombro patricia muestra cambios degenerativos leves y espolones ?seos. Phillips orina no estaba infectada hoy. Dong un seguimiento con phillips m?dico de atenci?n primaria con respecto a esta visita. [place] Tylenol seg?n las indicaciones seg?n sea necesario. Regrese con s?ntomas nuevos o que empeoran. Prescriptions: No Action quetiapine 50 mg tablet 50 mg PO TID multivitamin [Daily-Cony] Tablet 1 tab PO DAILY 30 Days Qty: 30 0RF ipratropium-albuterol 0.5 mg-3 mg(2.5 mg base)/3 mL solution for nebulization 1 amp inhalation Q4H PRN (Reason: Wheezing) 30 Days Qty: 30 0RF acetaminophen 650 mg tablet extended release 1 tab PO BID PRN (Reason: pain) 30 Days Qty: 60 0RF baclofen 20 mg Tablet 20 mg PO DAILY PRN (Reason: Back Pain) 30 Days Qty: 30 0RF trazodone 50 mg tablet 1 tab PO BEDTIME PRN (Reason: insomnia) omeprazole 40 mg capsule,delayed release(DR/EC) 1 cap PO DAILY@0630 montelukast 10 mg tablet 1 tab PO BEDTIME pravastatin 20 mg tablet 1 tab PO BEDTIME metoprolol succinate 25 mg tablet extended release 24 hr 1 tab PO DAILY albuterol sulfate [Ventolin HFA] 90 mcg/actuation HFA aerosol inhaler 2 puff INHALATION Q4-6H PRN (Reason: Shortness Of Breath Or Wheezing) thiamine HCl (vitamin B1) 100 mg tablet 1 tab PO DAILY aspirin 81 mg tablet,delayed release (DR/EC) 1 tab PO BEDTIME folic acid 1 mg tablet 1 mg PO DAILY Referrals: Name,MD Ryder [Primary Care Provider] - Print Language: Montenegrin
[2023-01-04 14:18] LABS: MANUAL DIFF FLAG NO
[2023-01-04 14:21] LABS: Basophils Percent Auto 0.3 % (0-2); Eosinophils Absolute Auto 0.1 X10*3/uL (0.0-0.4); Hematocrit 23.6 % (37.0-47.0); Hemoglobin 7.4 g/dl (12.0-16.0); Imm Gran Abs Auto 0.04 X10*3/uL (0.00-0.03); Imm Gran Pct Auto 0.6 % (0.0-0.4); Lymphocytes Absolute Auto 1.8 X10*3/uL (1.2-4.9); Lymphocytes Percent Auto 26.3 % (20-40); Mean Corpuscular HGB Conc 31.4 g/dl (31.0-35.0); Mean Corpuscular Hemoglobin 23.6 pg (27.0-33.0); Mean Corpuscular Volume 75.2 fL (80.0-98.0); Mean Platelet Volume 8.2 fL (9.4-12.3); Monocytes Absolute Auto 0.9 X10*3/uL (0.1-1.2); Monocytes Percent Auto 12.6 % (2-11); Neutrophils Absolute Auto 4.1 x10*3/uL (2.0-8.3); Neutrophils Percent Auto 59.2 % (45-73); Platelet Count 248 X10*3/uL (160-400); Red Blood Count 3.14 X10*6/uL (4.20-5.50); Red Cell Distribution Width 22.2 % (11.0-16.0); White Blood Count 6.8 X10*3/uL (4.8-10.8)
[2023-01-04] MEDS: Acetaminophen 325 MG TABLET 975 MG PO (14:21)
[2023-01-04 14:36] LABS: Alanine Aminotransferase 5 U/L (0-31); Alkaline Phosphatase 135 U/L (39-117); Anion Gap 11 (12-20); Aspartate Amino Transferase 11 U/L (5-31); Bilirubin Direct < 0.2 mg/dL (0.0-0.5); Bilirubin Total 0.2 mg/dL (0.0-1.0); Blood Urea Nitrogen 22 mg/dL (9-16); Calcium 8.1 mg/dL (8.4-10.2); Carbon Dioxide 27 mmol/L (22-29); Chloride 104 mmol/L (96-108); Creatinine Clr Calc Pharmacy 49.6; Estimated Glomerular Filt Rate 45; Glucose Random 123 mg/dL (60-115); Magnesium 2.2 mg/dL (1.6-2.6); Potassium 4.6 mmol/L (3.3-5.1); Sodium 137 mmol/L (135-145); Total Protein 5.7 g/dL (6.5-8.0)
[2023-01-04 15:05] LABS: Influenza A PCR NEGATIVE (Negative); Influenza B PCR NEGATIVE (Negative); Resp Syncy Virus RNA Qual PCR NEGATIVE (Negative); SARS COV2 PCR INHOUSE NEGATIVE (Negative)
[2023-01-04 15:56] VITALS: TEMP 37.2
[2023-01-04 16:09] LABS: Appearance Urine Clear; Color Urine Yellow; Glucose Urine UA Negative (Negative); Leukocyte Esterase Urine Negative (Negative); Nitrite Urine Negative (Negative); PH 6.5 (5.0-9.0); UMIC TRIGGER UACC YES; Urine Blood Small (1+) (Negative); Urine Ketones Negative (Negative); Urine Protein Negative (Neg-Trace)
[2023-01-04 16:21] VITALS: BP 160/77; PULSE 92; RESP 20; O2SAT 99
[2023-01-04 16:23] LABS: Bacteria Urine None Seen (None Seen); Hyaline Casts Urine 0-2 /LPF (0-2); Squamous Epithelial Cell Urine 0-2 /HPF (0-2); WBC Urine 0-5 /HPF (0-5)
== END 2023-01-04 18:38 | disposition home or self-care (01) ==
PROVIDERS: Physician Assistant Medical; Emergency Provider Emergency Medicine; PCP Internal Medicine Geriatric Medicine
DX: M79.10 Myalgia, unspecified site (principal); M25.512 Pain in left shoulder; R00.0 Tachycardia, unspecified; R50.9 Fever, unspecified; Z20.828 Contact with and (suspected) exposure to other viral communicable diseases; Z20.822 Contact with and (suspected) exposure to COVID-19; Z79.899 Other long term (current) drug therapy
CPT/HCPCS: 0241U; 71045; 73030; 80048; 80076; 81001; 81003; 83735; 85025; 93005; 99283; 99285

== ENCOUNTER 2023-01-30 15:57 | Observation (INO) | payer MEDICARE, MEDICAID, SELFPAY ==
--- NOTE | ~2023-01-30 | XR_ITS ---
EXAMINATION: XR CHEST CLINICAL INFORMATION: Cough COMPARISON: 01/04/2023 TECHNIQUE: Frontal view of the chest was obtained. FINDINGS: Lung volumes are symmetric. No focal consolidation is seen. No evidence of pneumothorax, pleural effusion, or pulmonary edema. Cardiac size is within normal limits. Calcification is present at the aortic arch. No acute osseous findings are seen. XR/XR chest 1V IMPRESSION: No acute cardiopulmonary findings.
--- NOTE | ~2023-01-30 | CT_ITS ---
EXAMINATION: CT HEAD WITHOUT CONTRAST CT CERVICAL SPINE WITHOUT CONTRAST CLINICAL INFORMATION: Fall. Confusion. COMPARISON: CTA head and cervical spine from 04/22/2022. Brain MRI from 04/07/2016. TECHNIQUE: Contiguous axial imaging was performed from the skull base to vertex without intravenous administration of contrast. Contiguous axial imaging was performed from the upper chest through the skull base without intravenous administration of contrast. Coronal and sagittal reformats were obtained at the acquisition workstation. This CT examination was performed using dose optimization techniques as appropriate, variously including the following: *Automated exposure control. *Adjustment of mA and/or kV according to patient size (this includes techniques or standardized protocols for targeted exams where dose is matched to indication/reason for exam; i.e. extremities or head). *Use of iterative reconstruction technique. DLP: 1571 mGy-cm FINDINGS: Head: Moderately motion degraded exam. There is no evidence of acute intracranial hemorrhage or edematous territorial infarction. Fitch-white matter differentiation is preserved. A few foci of hypoattenuation in the periventricular and deep white matter are consistent with mild microangiopathy. Proportional prominence of the ventricles and sulcal spaces without evidence of obstructive hydrocephalus. No abnormal mass effect or midline shift. No extra-axial fluid collections. No acute soft tissue or osseous abnormalities. Mild mucosal thickening of the paranasal sinuses. Chronic expanded, opacified cavity within the left mastoid. Potential dehiscence of the left tegmen mastoideum. Moderate right-sided mastoid effusion. Cervical Spine: The atlantooccipital and atlantoaxial articulations remain well aligned. Straightening of the normal cervical lordosis. Mild degenerative anterolisthesis of C3 on C4. Otherwise, there is anatomic alignment of the vertebral bodies and posterior elements. Ankylosis of the left-sided C2-C4 facets. No evidence of acute fracture or subluxation. The vertebral body heights are maintained. Advanced degenerative disc disease from C3-T1. Prominent bridging anterior osteophytosis from C3-C7. Facet and uncovertebral joint arthropathy leads to osseous encroachment on the neural foramina from C3-T1. There is no prevertebral soft tissue swelling. The thyroid gland and remaining cervical soft tissues are within normal limits. The lung apices demonstrate no abnormalities. CT/CT cervical spine wo IV con IMPRESSION: 1. No evidence of acute intracranial hemorrhage or edematous territorial infarction. Mild underlying microangiopathy and generalized cerebral volume loss. 2. Chronic expansion, possibly cavity within the left mastoid with potential dehiscence of the left-sided tegmen mastoideum. This may represent an underlying cholesteatoma as previously described commonly be difficult to exclude a superimposed infectious was given this appearance. 3. No evidence of acute fracture or traumatic subluxation of the cervical spine. Moderate to advanced multilevel degenerative spondyloarthropathy of the cervical spine.
[2023-01-30 16:11] VITALS: BP 150/76; BP 159/87; PULSE 85; PULSE 91; RESP 18; TEMP 36.5; O2SAT 95; BMI 31.9
--- NOTE | 2023-01-30 16:12 | ED_ITS ---
HPI - Fall General Chief Complaint: Fall Stated Complaint: UNWIT FALL,NAUSEA,AMS,+CCOLLAR PER EMS Time Seen by Provider: 01/30/23 16:11 Source: EMS Mode of arrival: EMS History of Present Illness HPI Narrative: 67-year-old female is brought in from EMS for reports by her that he came into living room and found her on the floor. EMS states that patient was minimally responsive with gurgling and snoring respirations and they admi nistered 4 mg of Narcan. As per the patient is scheduled medication bottles were empty and for some unknown reason they were not locked up per usual. Related Data Home Medications Medication Instructions Recorded Confirmed quetiapine 50 mg tablet 50 mg PO TID 07/26/22 11/26/22 albuterol sulfate 90 mcg/actuation 2 puff inhalation Q4-6H PRN 11/26/22 11/26/22 aerosol inhaler (Ventolin HFA) Shortness Of Breath Or Wheezing aspirin 81 mg tablet,delayed 1 tab PO BEDTIME 11/26/22 11/26/22 release folic acid 1 mg tablet 1 mg PO DAILY 11/26/22 11/26/22 metoprolol succinate 25 mg 1 tab PO DAILY 11/26/22 11/26/22 tablet,extended release 24 hr montelukast 10 mg tablet 1 tab PO BEDTIME 11/26/22 11/26/22 omeprazole 40 mg capsule,delayed 1 cap PO DAILY@0630 11/26/22 11/26/22 release pravastatin 20 mg tablet 1 tab PO BEDTIME 11/26/22 11/26/22 thiamine HCl (vitamin B1) 100 mg 1 tab PO DAILY 11/26/22 11/26/22 tablet trazodone 50 mg tablet 1 tab PO BEDTIME PRN insomnia 11/26/22 11/26/22 Previous Rx's Medication Instructions Recorded acetaminophen 650 mg 1 tab PO BID PRN pain 30 days #60 04/29/22 tablet,extended release tabs baclofen 20 mg tablet 20 mg PO DAILY PRN Back Pain 30 04/29/22 days #30 tabs ipratropium 0.5 mg-albuterol 3 mg 1 amp inhalation Q4H PRN Wheezing 04/29/22 (2.5 mg base)/3 mL nebulization 30 days #30 multiple units soln multivitamin (Daily-Cony tablet) 1 tab PO DAILY 30 days #30 tabs 04/29/22 Allergies Allergy/AdvReac Type Severity Reaction Status Date / Time fluticasone Allergy Unknown Verified 11/25/22 17:15 [From Advair Diskus] salmeterol Allergy Unknown Verified 11/25/22 17:15 [From Advair Diskus] paroxetine [From Paxil] AdvReac Intermediate Nausea and Verified 11/25/22 17:15 Vomiting Review of Systems Review of Systems: Pertinent positives and negatives as stated in [facility] Past Medical History Source: nursing notes reviewed Medical History Acute hyponatremia Acute hyponatremia Alcohol use disorder Bipolar 1 disorder Bipolar I disorder Cannabis use disorder, moderate, dependence Chronic hyponatremia Congestive heart failure COPD (chronic obstructive pulmonary disease) Coronary artery disease Dementia Diabetes Effusion of shoulder joint, left Family history of breast cancer Hypertension Korsakoff disease Mass of joint of left shoulder Osteoarthritis Schizophrenia Shortness of breath Sleep apnea Surgical History Hx of appendectomy Family History Family History Sister Breast cancer, Onset Age: 40 Sister Breast cancer, Onset Age: 50 Social History Social History Household Members: Spouse Housing: Apartment Do you presently have visiting nurse or other home services: Yes Unable to assess alcohol history related to: Unknown Alcohol intake: current Alcohol intake frequency: does not drink Alcohol type: wine Patient Tobacco Use Status: Former Tobacco user Tobacco use type: Cigarette Cigarettes Per Day: 6 Years Smoked: 53 e-Cigarette/Vaping Use: Never Used Second Hand Smoke Exposure: Yes Substance Use Type: Marijuana Advance Directives: Yes Advance Directives on File: Yes Advance Directives Date on File: 10/10/20 service: No Current occupational status: unemployed, disabled and other Sexual orientation: Straight/Heterosexual Physical Exam Vital Signs: Vital Signs: Last Vital Signs Temp 97.5 F 01/30/23 20:23 Pulse 65 01/30/23 20:23 Resp 14 01/30/23 20:23 BP 143/59 H 01/30/23 20:23 Pulse Ox 97 01/30/23 20:23 O2 Del Method Room Air 01/30/23 20:23 BMI result Body Mass Index 31.9 VITAL SIGNS: Reviewed. GENERAL: Well developed, well nourished, in no acute distress. HEAD: Normocephalic/atraumatic, EYES: PERRLA, EOMI, bilateral pinpoint pupils EARS: Ext canals without abnormality NOSE: Nares patent bilateral OROPHARYNX: no oral lesions noted, posterior pharynx clear, some mild foaming at the mouth but suctioned with clear airway NECK: C-collar in place, no adenopathy, LUNGS: Normal breath sounds. No adventitious sounds or accessory muscle use. SpO2<95> CARDIOVASCULAR: Regular rate and rhythm without noted murmurs, no JVD or lower e xtremity edema. ABDOMEN: Soft, non-tender, non-distended with bowel sounds. MUSCULOSKELETAL: No tenderness, deformities, or effusions noted on gross inspection. EXTREMITIES: No cyanosis, clubbing or edema. SKIN: Inspection of the skin reveals no rashes NEUROLOGIC: Drowsy but response to pain, and oriented x 2. Strength and sensation to light touch were grossly intact x 4. Medications Administered Discontinued Medications Generic Name Dose Route Start Last Admin Trade Name Freq PRN Reason Stop Dose Admin Sodium Chloride 500 mls @ 999 mls/hr 01/30/23 17:45 01/30/23 22:41 Ns IV 01/30/23 18:15 Infused .Q31M YUMIKO Infusion Ceftriaxone Sodium 1 gm/ 50 mls @ 100 mls/hr 01/31/23 01:18 01/31/23 03:23 Sodium Chloride IV 01/31/23 01:47 100 mls/hr ONCE ONE Administration Lorazepam 1 mg 01/30/23 17:57 01/30/23 18:03 Lorazepam 2 Mg/Ml Vial IVPUSH 01/30/23 17:58 1 mg ONCE ONE Administration Medical Decision Making Medical Decision Making MDM Narrative: 67-year-old female who may have gotten into several medications, no empty bottles were provided by EMS, she did receive Narcan and does have bilateral pinpoint pupils. Will evaluate with basic lab work, CT of head and neck, EKG as well as toxicology. 1904: Nursing spoke with the home health nurse who states that she is the 1 who has consolidated the medications and accidentally left the empty bottles out. The nurse states that when she was at the how she noted the patient has started to drink alcohol. 0100: I suspect infection, VBG is within normal limits, I reviewed all other investigations and urine appears to be positive for nitrites as well as leukocyte esterase, will obtain lactic acid/blood cultures and administer Rocephin. On repeat basic metabolic panel, the hyponatremic/hypochloremic values have normalized. 0200: Delay in getting lactic acid and blood cultures secondary to no venous access. 0304: I discussed case with inpatient hospitalist who accepts admission. Differential Diagnosis Please see the discussion above Consult Healthcare Provider Management of the patient was discussed with: Hospitalist Please see the discussion above Lab Data Please see the discussion above 01/30/23 16:47 01/30/23 16:47 Labs: Lab Results 01/30/23 01/30/23 01/30/23 Range/Units 12:00 16:16 16:47 WBC 8.8 (4.8-10.8) X10*3/uL RBC 3.45 L (4.20-5.50) X10*6/uL Hgb 8.0 L (12.0-16.0) g/dl Hct 25.5 L (37.0-47.0) % MCV 73.9 L (80.0-98.0) fL MCH 23.2 L (27.0-33.0) pg MCHC 31.4 (31.0-35.0) g/dl RDW 21.2 H (11.0-16.0) % Plt Count 385 D (160-400) X10*3/uL MPV 8.5 L (9.4-12.3) fL Immature Gran % (Auto) 1.6 H (0.0-0.4) % Neut % (Auto) 72.1 (45-73) % Lymph % (Auto) 15.3 L (20-40) % [place] % (Auto) 10.5 (2-11) % Eos % (Auto) 0.3 (0-4) % Baso % (Auto) 0.2 (0-2) % Lymph # (Auto) 1.3 (1.2-4.9) X10*3/uL [place] # (Auto) 0.9 (0.1-1.2) X10*3/uL Eos # (Auto) 0.0 (0.0-0.4) X10*3/uL Baso # (Auto) 0.0 (0.0-0.2) X10*3/uL Abs Immat Gran (auto) 0.14 H (0.00-0.03) X10*3/uL Absolute Neuts (auto) 6.3 (2.0-8.3) x10*3/uL Absolute Nucleated RBC 0.000 (0.0-0.012) X10*3/uL Nucleated RBC % (auto) 0.0 (0.0-0.2) /100WBC PT (10.0-13.1) SEC INR (0.9-1.1) VBG pH (7.32-7.43) VBG pCO2 mmHg VBG pO2 mmHg VBG HCO3 (22-26) mmol/L VBG O2 Saturation % VBG Base Excess mmol/L Sodium (135-145) mmol/L Potassium (3.3-5.1) mmol/L Chloride (96-108) mmol/L Carbon Dioxide (22-29) mmol/L Anion Gap (12-20) BUN (9-16) mg/dL Creatinine (0.5-1.4) mg/dL Estim Creat Clear Calc Estimated GFR POC Glucose 139 H (60-115) mg/dL Random Glucose (60-115) mg/dL Lactic Acid (0.5-2.0) mmol/L Calcium (8.4-10.2) mg/dL Total Bilirubin (0.0-1.0) mg/dL AST (5-31) U/L ALT (0-31) U/L Alkaline Phosphatase (39-117) U/L Total Protein (6.5-8.0) g/dL Albumin (3.5-5.0) g/dL Urine Color Urine Appearance Urine pH (5.0-9.0) Ur Specific [place] (1.005-1.025) Urine Protein (Neg-Trace) mg/dL Urine Glucose (UA) (Negative) mg/dL Urine Ketones (Negative) mg/dL Urine Blood (Negative) Urine Nitrite (Negative) Ur Leukocyte Esterase (Negative) Urine RBC (0-2) /HPF Urine WBC (0-5) /HPF Ur Squamous Epith Cells (0-2) /HPF Urine Bacteria (None Seen) Hyaline Casts (0-2) /LPF Salicylates (15-30) mg/dL Urine Opiates Screen Not Detected (Not Detect) Urine Fentanyl Screen Not Detected (Not Detect) Acetaminophen (<30) mcg/mL Ur Barbiturates Screen Not Detected (Not Detect) Ur Phencyclidine Scrn Not Detected (Not Detect) Ur Amphetamines Screen Not Detected (Not Detect) U Benzodiazepines Scrn Not Detected (Not Detect) Urine Cocaine Screen Not Detected (Not Detect) U Marijuana (THC) Screen POSITIVE H (Not Detect) Ethyl Alcohol mg/dL 01/30/23 01/30/23 01/30/23 Range/Units 16:47 16:47 22:03 WBC (4.8-10.8) X10*3/uL RBC (4.20-5.50) X10*6/uL Hgb (12.0-16.0) g/dl Hct (37.0-47.0) % MCV (80.0-98.0) fL MCH (27.0-33.0) pg MCHC (31.0-35.0) g/dl RDW (11.0-16.0) % Plt Count (160-400) X10*3/uL MPV (9.4-12.3) fL Immature Gran % (Auto) (0.0-0.4) % Neut % (Auto) (45-73) % Lymph % (Auto) (20-40) % [place] % (Auto) (2-11) % Eos % (Auto) (0-4) % Baso % (Auto) (0-2) % Lymph # (Auto) (1.2-4.9) X10*3/uL [place] # (Auto) (0.1-1.2) X10*3/uL Eos # (Auto) (0.0-0.4) X10*3/uL Baso # (Auto) (0.0-0.2) X10*3/uL Abs Immat Gran (auto) (0.00-0.03) X10*3/uL Absolute Neuts (auto) (2.0-8.3) x10*3/uL Absolute Nucleated RBC (0.0-0.012) X10*3/uL Nucleated RBC % (auto) (0.0-0.2) /100WBC PT 12.0 (10.0-13.1) SEC INR 1.0 (0.9-1.1) VBG pH 7.48 H (7.32-7.43) VBG pCO2 32 mmHg VBG pO2 118 mmHg VBG HCO3 24 (22-26) mmol/L VBG O2 Saturation 99.0 % VBG Base Excess 1.4 mmol/L Sodium 126 L (135-145) mmol/L Potassium 3.9 (3.3-5.1) mmol/L Chloride 92 L (96-108) mmol/L Carbon Dioxide 23 (22-29) mmol/L Anion Gap 15 (12-20) BUN 17 H (9-16) mg/dL Creatinine 1.16 (0.5-1.4) mg/dL Estim Creat Clear Calc 46.2 Estimated GFR 46 POC Glucose (60-115) mg/dL Random Glucose 127 H (60-115) mg/dL Lactic Acid (0.5-2.0) mmol/L Calcium 8.7 D (8.4-10.2) mg/dL Total Bilirubin 0.5 (0.0-1.0) mg/dL AST 15 (5-31) U/L ALT 7 (0-31) U/L Alkaline Phosphatase 147 H (39-117) U/L Total Protein 6.9 (6.5-8.0) g/dL Albumin 3.6 (3.5-5.0) g/dL Urine Color Urine Appearance Urine pH (5.0-9.0) Ur Specific [place] (1.005-1.025) Urine Protein (Neg-Trace) mg/dL Urine Glucose (UA) (Negative) mg/dL Urine Ketones (Negative) mg/dL Urine Blood (Negative) Urine Nitrite (Negative) Ur Leukocyte Esterase (Negative) Urine RBC (0-2) /HPF Urine WBC (0-5) /HPF Ur Squamous Epith Cells (0-2) /HPF Urine Bacteria (None Seen) Hyaline Casts (0-2) /LPF Salicylates < 5.0 L (15-30) mg/dL Urine Opiates Screen (Not Detect) Urine Fentanyl Screen (Not Detect) Acetaminophen < 17 (<30) mcg/mL Ur Barbiturates Screen (Not Detect) Ur Phencyclidine Scrn (Not Detect) Ur Amphetamines Screen (Not Detect) U Benzodiazepines Scrn (Not Detect) Urine Cocaine Screen (Not Detect) U Marijuana (THC) Screen (Not Detect) Ethyl Alcohol < 10 mg/dL 01/31/23 01/31/23 01/31/23 Range/Units 01:00 01:09 03:14 WBC (4.8-10.8) X10*3/uL RBC (4.20-5.50) X10*6/uL Hgb (12.0-16.0) g/dl Hct (37.0-47.0) % MCV (80.0-98.0) fL MCH (27.0-33.0) pg MCHC (31.0-35.0) g/dl RDW (11.0-16.0) % Plt Count (160-400) X10*3/uL MPV (9.4-12.3) fL Immature Gran % (Auto) (0.0-0.4) % Neut % (Auto) (45-73) % Lymph % (Auto) (20-40) % [place] % (Auto) (2-11) % Eos % (Auto) (0-4) % Baso % (Auto) (0-2) % Lymph # (Auto) (1.2-4.9) X10*3/uL [place] # (Auto) (0.1-1.2) X10*3/uL Eos # (Auto) (0.0-0.4) X10*3/uL Baso # (Auto) (0.0-0.2) X10*3/uL Abs Immat Gran (auto) (0.00-0.03) X10*3/uL Absolute Neuts (auto) (2.0-8.3) x10*3/uL Absolute Nucleated RBC (0.0-0.012) X10*3/uL Nucleated RBC % (auto) (0.0-0.2) /100WBC PT (10.0-13.1) SEC INR (0.9-1.1) VBG pH (7.32-7.43) VBG pCO2 mmHg VBG pO2 mmHg VBG HCO3 (22-26) mmol/L VBG O2 Saturation % VBG Base Excess mmol/L Sodium 132 L (135-145) mmol/L Potassium 4.4 (3.3-5.1) mmol/L Chloride 99 (96-108) mmol/L Carbon Dioxide 27 (22-29) mmol/L Anion Gap 10 L (12-20) BUN 15 (9-16) mg/dL Creatinine 1.02 (0.5-1.4) mg/dL Estim Creat Clear Calc 52.6 Estimated GFR 54 POC Glucose (60-115) mg/dL Random Glucose 117 H (60-115) mg/dL Lactic Acid 0.8 (0.5-2.0) mmol/L Calcium 9.1 (8.4-10.2) mg/dL Total Bilirubin (0.0-1.0) mg/dL AST (5-31) U/L ALT (0-31) U/L Alkaline Phosphatase (39-117) U/L Total Protein (6.5-8.0) g/dL Albumin (3.5-5.0) g/dL Urine Color Yellow Urine Appearance Clear Urine pH 6.0 (5.0-9.0) Ur Specific [place] <= 1.005 (1.005-1.025) Urine Protein Negative (Neg-Trace) mg/dL Urine Glucose (UA) Negative (Negative) mg/dL Urine Ketones Negative (Negative) mg/dL Urine Blood Small (1+) H (Negative) Urine Nitrite Positive H (Negative) Ur Leukocyte Esterase Moderate (2+) H (Negative) Urine RBC 0-2 (0-2) /HPF Urine WBC 0-5 (0-5) /HPF Ur Squamous Epith Cells 3-5 (0-2) /HPF Urine Bacteria 4+ (None Seen) Hyaline Casts 0-2 (0-2) /LPF Salicylates (15-30) mg/dL Urine Opiates Screen (Not Detect) Urine Fentanyl Screen (Not Detect) Acetaminophen (<30) mcg/mL Ur Barbiturates Screen (Not Detect) Ur Phencyclidine Scrn (Not Detect) Ur Amphetamines Screen (Not Detect) U Benzodiazepines Scrn (Not Detect) Urine Cocaine Screen (Not Detect) U Marijuana (THC) Screen (Not Detect) Ethyl Alcohol mg/dL Independent Interpretation I performed an independent interpretation of an: EKG Interpretation: Normal sinus rhythm with incomplete right bundle branch block (present at baseline), HR-82, no STEMI, UT/QRS/QTC is within normal limits Radiology Impression Radiologist Impression: My interpretation is in agreement with right allergies impression although imaging studies. External Record Review External record reviewed: Outpatient record and Prior outpatient labs Discharge Plan Discharge Clinical Impression: Sepsis, Acute UTI, Confusion Patient Disposition: Admitted As Inpatient Prescriptions: No Action quetiapine 50 mg tablet 50 mg PO TID multivitamin [Daily-Cony] Tablet 1 tab PO DAILY 30 Days Qty: 30 0RF ipratropium-albuterol 0.5 mg-3 mg(2.5 mg base)/3 mL solution for nebulization 1 amp inhalation Q4H PRN (Reason: Wheezing) 30 Days Qty: 30 0RF acetaminophen 650 mg tablet extended release 1 tab PO BID PRN (Reason: pain) 30 Days Qty: 60 0RF baclofen 20 mg Tablet 20 mg PO DAILY PRN (Reason: Back Pain) 30 Days Qty: 30 0RF trazodone 50 mg tablet 1 tab PO BEDTIME PRN (Reason: insomnia) omeprazole 40 mg capsule,delayed release(DR/EC) 1 cap PO DAILY@0630 montelukast 10 mg tablet 1 tab PO BEDTIME pravastatin 20 mg tablet 1 tab PO BEDTIME metoprolol succinate 25 mg tablet extended release 24 hr 1 tab PO DAILY albuterol sulfate [Ventolin HFA] 90 mcg/actuation HFA aerosol inhaler 2 puff INHALATION Q4-6H PRN (Reason: Shortness Of Breath Or Wheezing) thiamine HCl (vitamin B1) 100 mg tablet 1 tab PO DAILY aspirin 81 mg tablet,delayed release (DR/EC) 1 tab PO BEDTIME folic acid 1 mg tablet 1 mg PO DAILY
--- NOTE | 2023-01-30 16:13 | ECG_ITS ---
Test Reason : FALL Blood Pressure : / mmHG Vent. Rate : 082 BPM Atrial Rate : 082 BPM P-R Int : 146 ms QRS Dur : 100 ms QT Int : 378 ms P-R-T Axes : 069 -13 056 degrees QTc Int : 441 ms Normal sinus rhythm with sinus arrhythmia Incomplete right bundle branch block Nonspecific T wave abnormality Abnormal ECG When compared with ECG of 04-JAN-2023 13:52, Premature atrial complexes are no longer Present Inverted T waves have replaced nonspecific T wave abnormality in Anterior leads Referred By: Elvia Us Electronically Signed By:CAMPOS KELLER MD
[2023-01-30 16:20] VITALS: O2SAT 95
[2023-01-30 16:20] LABS: Glucose, Whole Blood 139 mg/dL (60-115)
--- NOTE | 2023-01-30 16:49 | PC.NURSE ---
pt comes in altered from baseline, responsive to painful stimuli. Pt satting 95, with snoring, gurgaling breaths. Pt suctioned and breathing has improved. IV inserted and labs drawn. Awaiting CT scan.
[2023-01-30 16:52] LABS: MANUAL DIFF FLAG NO
--- NOTE | 2023-01-30 16:56 | PC.NURSE ---
Husbands Phone number [phone]
[2023-01-30 17:10] LABS: Acetaminophen LAB < 17 mcg/mL (<30); Alanine Aminotransferase 7 U/L (0-31); Albumin Level 3.6 g/dL (3.5-5.0); Alkaline Phosphatase 147 U/L (39-117); Anion Gap 15 (12-20); Aspartate Amino Transferase 15 U/L (5-31); Bilirubin Total 0.5 mg/dL (0.0-1.0); Blood Urea Nitrogen 17 mg/dL (9-16); Calcium 8.7 mg/dL (8.4-10.2); Carbon Dioxide 23 mmol/L (22-29); Chloride 92 mmol/L (96-108); Creatinine Clr Calc Pharmacy 46.2; Estimated Glomerular Filt Rate 46; Ethanol < 10 mg/dL; Glucose Random 127 mg/dL (60-115); Potassium 3.9 mmol/L (3.3-5.1); Salicylate < 5.0 mg/dL (15-30); Sodium 126 mmol/L (135-145); Total Protein 6.9 g/dL (6.5-8.0)
[2023-01-30 17:17] LABS: Basophils Percent Auto 0.2 % (0-2); Eosinophils Percent Auto 0.3 % (0-4); Hematocrit 25.5 % (37.0-47.0); Imm Gran Abs Auto 0.14 X10*3/uL (0.00-0.03); Imm Gran Pct Auto 1.6 % (0.0-0.4); Lymphocytes Absolute Auto 1.3 X10*3/uL (1.2-4.9); Lymphocytes Percent Auto 15.3 % (20-40); Mean Corpuscular HGB Conc 31.4 g/dl (31.0-35.0); Mean Corpuscular Hemoglobin 23.2 pg (27.0-33.0); Mean Corpuscular Volume 73.9 fL (80.0-98.0); Mean Platelet Volume 8.5 fL (9.4-12.3); Monocytes Absolute Auto 0.9 X10*3/uL (0.1-1.2); Monocytes Percent Auto 10.5 % (2-11); Neutrophils Absolute Auto 6.3 x10*3/uL (2.0-8.3); Neutrophils Percent Auto 72.1 % (45-73); Platelet Count 385 X10*3/uL (160-400); Red Blood Count 3.45 X10*6/uL (4.20-5.50); Red Cell Distribution Width 21.2 % (11.0-16.0); White Blood Count 8.8 X10*3/uL (4.8-10.8)
[2023-01-30] MEDS: 0.9 % Sodium Chloride 500 ML 999 ML IV (17:43)
--- NOTE | 2023-01-30 17:43 | PC.NURSE ---
pt awaiting CT scan. NS running per order.
[2023-01-30] MEDS: LORazepam 2 MG/ML VIAL 1 MG IVPUSH (18:03)
--- NOTE | 2023-01-30 18:03 | PC.NURSE ---
ativan given per MD order in CT scan. will cont to justyna
--- NOTE | 2023-01-30 18:37 | PC.NURSE ---
RN spoke to home care nurse. She said that she emptied her medication bottles today. Bottles were emptied by nurse and not taken by pt. [place] care nurse said that pt might have seen empty bottles and assumed she had taken all of them. Nurse also reported that pt was drinking this morning at 11am when she was there and that she drinks every day. medications that were set up in pill dispenser were daily meds only and were taken by pt this morning.
[2023-01-30 20:23] VITALS: BP 143/59; PULSE 65; RESP 14; TEMP 36.4; O2SAT 97
[2023-01-30 22:10] LABS: VBG Base Excess 1.4 mmol/L; VBG HCO3 24 mmol/L (22-26); VBG pCO2 32 mmHg; VBG pH 7.48 (7.32-7.43); VBG pO2 118 mmHg
[2023-01-30 22:18] LABS: Venous Blood Gas Refer to POC result
[2023-01-31] VITALS (10 sets, daily range): BP systolic 127–157; BP diastolic 39–77; PULSE 54–92; RESP 17–22; TEMP 36.4–36.8; O2SAT 95–100
--- NOTE | 2023-01-31 00:36 | MHC.EDTECH ---
Unable to draw blood x3 Phlebotomy was called
[2023-01-31 01:14] LABS: Appearance Urine Clear; Color Urine Yellow; Glucose Urine UA Negative (Negative); Leukocyte Esterase Urine Moderate (2+) (Negative); Nitrite Urine Positive (Negative); Specific Gravity - Urine <= 1.005 (1.005-1.025); UMIC TRIGGER UACC YES; Urine Blood Small (1+) (Negative); Urine Ketones Negative (Negative); Urine Protein Negative (Neg-Trace)
[2023-01-31 01:33] LABS: Bacteria Urine 4+ (None Seen); Hyaline Casts Urine 0-2 /LPF (0-2); RBC Urine 0-2 /HPF (0-2); UACC Culture Trigger YES; WBC Urine 0-5 /HPF (0-5)
[2023-01-31 01:35] LABS: Anion Gap 10 (12-20); Blood Urea Nitrogen 15 mg/dL (9-16); Calcium 9.1 mg/dL (8.4-10.2); Carbon Dioxide 27 mmol/L (22-29); Chloride 99 mmol/L (96-108); Creatinine Clr Calc Pharmacy 52.6; Estimated Glomerular Filt Rate 54; Glucose Random 117 mg/dL (60-115); Potassium 4.4 mmol/L (3.3-5.1); Sodium 132 mmol/L (135-145)
[2023-01-31 02:52] LABS: Amphetamine Screen Urine Not Detected (Not Detect); Barbiturates, Urine Not Detected (Not Detect); Benzodiazepines Screen Urine Not Detected (Not Detect); Cannabinoid Screen Urine POSITIVE (Not Detect); Cocaine Screen Urine Not Detected (Not Detect); Fentanyl, urine Not Detected (Not Detect); Opiate Screen Urine Not Detected (Not Detect); Phencyclidine Screen Urine Not Detected (Not Detect)
[2023-01-31] MEDS: cefTRIAXone sodium 1 GM in 0.9 % Sodium Chloride 50 ML IV ×2 (03:23→21:46)
[2023-01-31 03:31] LABS: Lactic Acid 0.8 mmol/L (0.5-2.0)
[2023-01-31 05:31] LABS: MANUAL DIFF FLAG NO
[2023-01-31 05:38] LABS: Basophils Percent Auto 0.2 % (0-2); Eosinophils Percent Auto 0.2 % (0-4); Hematocrit 26.7 % (37.0-47.0); Hemoglobin 8.6 g/dl (12.0-16.0); Imm Gran Abs Auto 0.15 X10*3/uL (0.00-0.03); Imm Gran Pct Auto 1.4 % (0.0-0.4); Lymphocytes Percent Auto 9.5 % (20-40); Mean Corpuscular HGB Conc 32.2 g/dl (31.0-35.0); Mean Corpuscular Hemoglobin 23.8 pg (27.0-33.0); Mean Corpuscular Volume 73.8 fL (80.0-98.0); Mean Platelet Volume 8.5 fL (9.4-12.3); Monocytes Absolute Auto 1.2 X10*3/uL (0.1-1.2); Monocytes Percent Auto 10.7 % (2-11); Neutrophils Absolute Auto 8.4 x10*3/uL (2.0-8.3); Platelet Count 367 X10*3/uL (160-400); Red Blood Count 3.62 X10*6/uL (4.20-5.50); Red Cell Distribution Width 21.2 % (11.0-16.0); White Blood Count 10.7 X10*3/uL (4.8-10.8)
[2023-01-31 06:00] LABS: Anion Gap 16 (12-20); Blood Urea Nitrogen 14 mg/dL (9-16); Calcium 8.8 mg/dL (8.4-10.2); Carbon Dioxide 22 mmol/L (22-29); Chloride 101 mmol/L (96-108); Creatinine Clr Calc Pharmacy 57.7; Estimated Glomerular Filt Rate 60; Glucose Random 105 mg/dL (60-115); Potassium 4.7 mmol/L (3.3-5.1); Sodium 134 mmol/L (135-145)
--- NOTE | 2023-01-31 06:26 | PM.IMHP ---
History of Present Illness Date of Service: 01/31/23 Chief Complaint: Altered mental status 67-year-old female with past medical history of bipolar 1 disorder, chronic hyponatremia, CHF, COPD, CAD, diabetes, dementia, HTN, schizophrenia, presents to the hospital after her found her on the floor. Patient is very somnolent, awakes to sternal rib, but unable to give much history. History is obtained from EMR as well as ED provider. It appears the patient was found by her on the floor, on arrival of EMS patient was found to be minimally responsive, gurgling snoring respirations. Narcan was given with no change in mentation. Unclear if patient hit her head, or had loss of consciousness Unable to obtain review of system On arrival to the ED patient hemodynamically stable with no significant abnormal vitals labs are significant for WBC count of 8.8, hemoglobin of 8 which is around her baseline, hematocrit 25.5, pH of 7.48, sodium of 126, baseline previously 137( from december) UA positive for nitrites, leukocyte Estrace, WBC, bacteria Chest x-ray negative, head CT negative, for any acute changes, cervical spine negative Patient will be admitted for further management Review of Systems Review of Systems: Yes Unobtainable due to mental condition and Unobtainable due to mental status PMFSH Medical History Acute hyponatremia Acute hyponatremia Alcohol use disorder Bipolar 1 disorder Bipolar I disorder Cannabis use disorder, moderate, dependence Chronic hyponatremia Congestive heart failure COPD (chronic obstructive pulmonary disease) Coronary artery disease Dementia Diabetes Effusion of shoulder joint, left Family history of breast cancer Hypertension Korsakoff disease Mass of joint of left shoulder Osteoarthritis Schizophrenia Shortness of breath Sleep apnea Family History Sister Breast cancer, Onset Age: 40 Sister Breast cancer, Onset Age: 50 Surgical History Hx of appendectomy Social History Household Members: Spouse Housing: Apartment Do you presently have visiting nurse or other home services: Yes Unable to assess alcohol history related to: Unknown Alcohol intake: current Alcohol intake frequency: does not drink Alcohol type: wine Patient Tobacco Use Status: Former Tobacco user Tobacco use type: Cigarette Cigarettes Per Day: 6 Years Smoked: 53 e-Cigarette/Vaping Use: Never Used Second Hand Smoke Exposure: Yes Substance Use Type: Marijuana Advance Directives: Yes Advance Directives on File: Yes Advance Directives Date on File: 10/10/20 service: No Current occupational status: unemployed, disabled and other Sexual orientation: Straight/Heterosexual Meds Allergies Allergy/AdvReac Type Severity Reaction Status Date / Time fluticasone Allergy Unknown Verified 11/25/22 17:15 [From Advair Diskus] salmeterol Allergy Unknown Verified 11/25/22 17:15 [From Advair Diskus] paroxetine [From Paxil] AdvReac Intermediate Nausea and Verified 11/25/22 17:15 Vomiting Active Medications: Current Medications Acetaminophen (Acetaminophen 325 Mg Tablet) 650 mg PO Q6H PRN PRN Reason: Pain, Mild (Pain Scale 1-3) Albuterol/Ipratropium (Albuterol/Iprat 2.5/0.5mg 3 Ml Ampul.Neb) 3 ml INHALE RQ4H PRN PRN Reason: Shortness of Breath/Wheezing Docusate Sodium (Docusate Sodium 100 Mg Capsule) 100 mg PO DAILY PRN PRN Reason: Constipation Ceftriaxone Sodium 1 gm/ (Sodium Chloride) 50 mls @ 100 mls/hr IV Q24H [facility] Ondansetron HCl (Ondansetron Hcl 4 Mg/2 Ml Vial) 4 mg IVPUSH Q8H PRN PRN Reason: Nausea and Vomiting Sodium Chloride (0.9 % Sodium Chloride Flush 3 Ml Syringe) 3 ml IVFLUSH [facility] Home Medications Medication Instructions Recorded Confirmed Last Taken Type quetiapine 50 mg tablet 50 mg PO TID 07/26/22 11/26/22 Unknown History albuterol sulfate 90 mcg/actuation 2 puff inhalation Q4-6H PRN 11/26/22 11/26/22 Unknown History aerosol inhaler (Ventolin HFA) Shortness Of Breath Or Wheezing aspirin 81 mg tablet,delayed 1 tab PO BEDTIME 11/26/22 11/26/22 Unknown History release folic acid 1 mg tablet 1 mg PO DAILY 11/26/22 11/26/22 Unknown History metoprolol succinate 25 mg 1 tab PO DAILY 11/26/22 11/26/22 Unknown History tablet,extended release 24 hr montelukast 10 mg tablet 1 tab PO BEDTIME 11/26/22 11/26/22 Unknown History omeprazole 40 mg capsule,delayed 1 cap PO DAILY@0630 11/26/22 11/26/22 Unknown History release pravastatin 20 mg tablet 1 tab PO BEDTIME 11/26/22 11/26/22 Unknown History thiamine HCl (vitamin B1) 100 mg 1 tab PO DAILY 11/26/22 11/26/22 Unknown History tablet trazodone 50 mg tablet 1 tab PO BEDTIME PRN insomnia 11/26/22 11/26/22 Unknown History Physical Exam Vital Signs and Narrative: Vital Signs: Last Vital Signs Temp 97.5 F 01/30/23 20: Pulse 65 01/30/23 20:23 Resp 14 01/30/23 20:23 BP 143/59 H 01/30/23 20:23 Pulse Ox 100 01/31/23 04:20 O2 Del Method Nasal Cannula, Am bu-Bag 01/31/23 04:20 BMI result Body Mass Index 31.9 Const: Other: Patient of [place], somnolent, arousable to sound, and sternal rub Unable to assess physical exam is patient not cooperating Eyes: General: appearance normal, both eyes and all related structures Resp: Other: Audible wheezing Effort & Inspection: normal respiratory effort Cardio: Rate: regular rate Rhythm: regular rhythm GI: Palpation (GI): Soft to palpation Auscultation: normal bowel sounds Skin: General skin exam: no rashes or lesions noted Extrem: General: Yes normal to inspection and Yes no pedal edema Results Labs 01/31/23 05:20 01/31/23 05:20 Labs: Laboratory Results - last 24 hr 01/30/23 01/30/23 01/30/23 12:00 16:16 16:47 MCV 73.9 L MCH 23.2 L MCHC 31.4 RDW 21.2 H Plt Count 385 D MPV 8.5 L Immature Gran % (Auto) 1.6 H Neut % (Auto) 72.1 Lymph % (Auto) 15.3 L [place] % (Auto) 10.5 Eos % (Auto) 0.3 Baso % (Auto) 0.2 Lymph # (Auto) 1.3 [place] # (Auto) 0.9 Eos # (Auto) 0.0 Baso # (Auto) 0.0 Abs Immat Gran (auto) 0.14 H Absolute Neuts (auto) 6.3 Absolute Nucleated RBC 0.000 Nucleated RBC % (auto) 0.0 PT INR VBG pH VBG pCO2 VBG pO2 VBG HCO3 VBG O2 Saturation VBG Base Excess Anion Gap Estim Creat Clear Calc Estimated GFR POC Glucose 139 H Random Glucose Lactic Acid Calcium Total Bilirubin AST ALT Alkaline Phosphatase Total Protein Albumin Urine Color Urine Appearance Urine pH Ur Specific [place] Urine Protein Urine Glucose (UA) Urine Ketones Urine Blood Urine Nitrite Ur Leukocyte Esterase Urine RBC Urine WBC Ur Squamous Epith Cells Urine Bacteria Hyaline Casts Salicylates Urine Opiates Screen Not Detected Urine Fentanyl Screen Not Detected Acetaminophen Ur Barbiturates Screen Not Detected Ur Phencyclidine Scrn Not Detected Ur Amphetamines Screen Not Detected U Benzodiazepines Scrn Not Detected Urine Cocaine Screen Not Detected U Marijuana (THC) Screen POSITIVE H Ethyl Alcohol 01/30/23 01/30/23 01/30/23 16:47 16:47 22:03 MCV MCH MCHC RDW Plt Count MPV Immature Gran % (Auto) Neut % (Auto) Lymph % (Auto) [place] % (Auto) Eos % (Auto) Baso % (Auto) Lymph # (Auto) [place] # (Auto) Eos # (Auto) Baso # (Auto) Abs Immat Gran (auto) Absolute Neuts (auto) Absolute Nucleated RBC Nucleated RBC % (auto) PT 12.0 INR 1.0 VBG pH 7.48 H VBG pCO2 32 VBG pO2 118 VBG HCO3 24 VBG O2 Saturation 99.0 VBG Base Excess 1.4 Anion Gap 15 Estim Creat Clear Calc 46.2 Estimated GFR 46 POC Glucose Random Glucose 127 H Lactic Acid Calcium 8.7 D Total Bilirubin 0.5 AST 15 ALT 7 Alkaline Phosphatase 147 H Total Protein 6.9 Albumin 3.6 Urine Color Urine Appearance Urine pH Ur Specific [place] Urine Protein Urine Glucose (UA) Urine Ketones Urine Blood Urine Nitrite Ur Leukocyte Esterase Urine RBC Urine WBC Ur Squamous Epith Cells Urine Bacteria Hyaline Casts Salicylates < 5.0 L Urine Opiates Screen Urine Fentanyl Screen Acetaminophen < 17 Ur Barbiturates Screen Ur Phencyclidine Scrn Ur Amphetamines Screen U Benzodiazepines Scrn Urine Cocaine Screen U Marijuana (THC) Screen Ethyl Alcohol < 10 05/07/23 05/07/23 05/07/23 01:00 01:09 03:14 MCV MCH MCHC RDW Plt Count MPV Immature Gran % (Auto) Neut % (Auto) Lymph % (Auto) [place] % (Auto) Eos % (Auto) Baso % (Auto) Lymph # (Auto) [place] # (Auto) Eos # (Auto) Baso # (Auto) Abs Immat Gran (auto) Absolute Neuts (auto) Absolute Nucleated RBC Nucleated RBC % (auto) PT INR VBG pH VBG pCO2 VBG pO2 VBG HCO3 VBG O2 Saturation VBG Base Excess Anion Gap 10 L Estim Creat Clear Calc 52.6 Estimated GFR 54 POC Glucose Random Glucose 117 H Lactic Acid 0.8 Calcium 9.1 Total Bilirubin AST ALT Alkaline Phosphatase Total Protein Albumin Urine Color Yellow Urine Appearance Clear Urine pH 6.0 Ur Specific [place] <= 1.005 Urine Protein Negative Urine Glucose (UA) Negative Urine Ketones Negative Urine Blood Small (1+) H Urine Nitrite Positive H Ur Leukocyte Esterase Moderate (2+) H Urine RBC 0-2 Urine WBC 0-5 Ur Squamous Epith Cells 3-5 Urine Bacteria 4+ Hyaline Casts 0-2 Salicylates Urine Opiates Screen Urine Fentanyl Screen Acetaminophen Ur Barbiturates Screen Ur Phencyclidine Scrn Ur Amphetamines Screen U Benzodiazepines Scrn Urine Cocaine Screen U Marijuana (THC) Screen Ethyl Alcohol 01/31/23 01/31/23 05:20 05:20 MCV 73.8 L MCH 23.8 L MCHC 32.2 RDW 21.2 H Plt Count 367 MPV 8.5 L Immature Gran % (Auto) 1.4 H Neut % (Auto) 78.0 H Lymph % (Auto) 9.5 L [place] % (Auto) 10.7 Eos % (Auto) 0.2 Baso % (Auto) 0.2 Lymph # (Auto) 1.0 L [place] # (Auto) 1.2 Eos # (Auto) 0.0 Baso # (Auto) 0.0 Abs Immat Gran (auto) 0.15 H Absolute Neuts (auto) 8.4 H Absolute Nucleated RBC 0.000 Nucleated RBC % (auto) 0.0 PT INR VBG pH VBG pCO2 VBG pO2 VBG HCO3 VBG O2 Saturation VBG Base Excess Anion Gap 16 Estim Creat Clear Calc 57.7 Estimated GFR 60 POC Glucose Random Glucose 105 Lactic Acid Calcium 8.8 Total Bilirubin AST ALT Alkaline Phosphatase Total Protein Albumin Urine Color Urine Appearance Urine pH Ur Specific [place] Urine Protein Urine Glucose (UA) Urine Ketones Urine Blood Urine Nitrite Ur Leukocyte Esterase Urine RBC Urine WBC Ur Squamous Epith Cells Urine Bacteria Hyaline Casts Salicylates Urine Opiates Screen Urine Fentanyl Screen Acetaminophen Ur Barbiturates Screen Ur Phencyclidine Scrn Ur Amphetamines Screen U Benzodiazepines Scrn Urine Cocaine Screen U Marijuana (THC) Screen Ethyl Alcohol Imaging Radiologist's Impressions: Impressions Cervical Spine CT 01/30/23 18:40 IMPRESSION: 1. No evidence of acute intracranial hemorrhage or edematous territorial infarction. Mild underlying microangiopathy and generalized cerebral volume loss. 2. Chronic expansion, possibly cavity within the left mastoid with potential dehiscence of the left-sided tegmen mastoideum. This may represent an underlying cholesteatoma as previously described commonly be difficult to exclude a superimposed infectious was given this appearance. 3. No evidence of acute fracture or traumatic subluxation of the cervical spine. Moderate to advanced multilevel degenerative spondyloarthropathy of the cervical spine. Head CT 01/30/23 18:40 IMPRESSION: 1. No evidence of acute intracranial hemorrhage or edematous territorial infarction. Mild underlying microangiopathy and generalized cerebral volume loss. 2. Chronic expansion, possibly cavity within the left mastoid with potential dehiscence of the left-sided tegmen mastoideum. This may represent an underlying cholesteatoma as previously described commonly be difficult to exclude a superimposed infectious was given this appearance. 3. No evidence of acute fracture or traumatic subluxation of the cervical spine. Moderate to advanced multilevel degenerative spondyloarthropathy of the cervical spine. Chest X-Ray 01/31/23 01:27 IMPRESSION: No acute cardiopulmonary findings. Assessment and Plan (1) Encephalopathy acute: Status: Acute (2) Acute UTI: Status: Acute (3) Acute hyponatremia: Status: Acute (4) COPD with acute exacerbation: Status: Acute Plan 67-year-old female with history of bipolar disorder, schizophrenia, CAD, COPD, presents the hospital with altered mentation # encephalopathy - likely acute toxic metabolic encephalopathy due to acute infection - no other source can be identified at this time, - head CT negative, chest x-ray negative, UA positive - will treat with IV antibiotics - IV fluids - monitor mentation - will also obtain Tylenol and salicylate level # acute UTI - positive UA altered mental status - will treat with IV antibiotics - follow cultures # acute hyponatremia - 127 with previous in the 130s - received 1 L of NS - patient is correcting too fast, at this time will treat with D5 water - nephrology consulted - Follow BMP closely # acute COPD exacerbation - patient has audible wheezing, unable to assess symptoms - will treat with DuoNeb p.r.n. as well as scheduled - Solu-Medrol IV b.i.d. - monitor respiratory status Will hold off On all her other home medications until patient is more awake alert, able to take p.o. Time Spent With Patient Time: Total time managing care of this patient today ____ minutes. Quality Stroke Does the patient have a stroke diagnosis?: No VTE Prior VTE?: No VTE Risk Level:: Medical - moderate - high VTE Device Contraindication: Treatment Not Indicated VTE Drug Contraindication: N/A - Med Ordered
[2023-01-31 07:21] LABS: Acetaminophen LAB < 17 mcg/mL (<30); Salicylate < 5.0 mg/dL (15-30)
[2023-01-31] MEDS: Albuterol/Iprat 2.5/0.5MG 3 ML AMPUL.NEB INHALE (07:32)
--- NOTE | 2023-01-31 07:40 | PC.NURSE ---
Resumed care of patient this morning, she is resting in bed w/ occational vocal outburst. New orders obtained at this time, awaiting bed placement
[2023-01-31] MEDS: methylPREDNISolone Sod Succ 40 MG/ML VIAL IVPUSH ×2 (08:03→17:57)
[2023-01-31] MEDS: Dextrose 5 % 1,000 ML 100 ML IVCONT ×2 (08:03→17:08)
--- NOTE | 2023-01-31 08:21 | PC.NURSE ---
Pt found to be saturated in foul smelling urine, pt cleaned up, oral suction provided for copious thick secretions, New orders placed for IVF/ steroids, given to patient at this time.
[2023-01-31] MEDS: 0.9 % Sodium Chloride Flush 3 ML SYRINGE IVFLUSH (10:27)
--- NOTE | 2023-01-31 10:46 | PC.NURSE ---
Pt placed back on O2, O2 sat dropping to low 80's 70's when sleeping, but comes right back up when yelling, or suctioned
--- NOTE | 2023-01-31 11:05 | PHA.MEDREC ---
Pharmacy Consult ? Medication Reconciliation Pharmacy has completed the medication reconciliation. Spoke to patient's spouse Juanjo to confirm meds. Patient's spouse states she uses pillbox from [facility].
--- NOTE | 2023-01-31 11:46 | PC.NURSE ---
Report given to M3 nurse, pt to be transported up by our staff
--- NOTE | 2023-01-31 13:40 | PC.NURSE ---
pt received from the ER on a stretcher into room 351 not accompanied by any family. pt responds to painful stimuli follows some simple commands but falls back to sleep to able to engage in conversation or answer questions . skin intact external cathater applied for urinary incontinence, IV fluids infusing as per orders . bed alarm applied call jones in reach
--- NOTE | 2023-01-31 14:30 | MHC.CM.PN ---
IMM 01/31 DELIVERED TO S.O./HCP MIKO. MIKO REPORTS PT WAS RECENTLY DISCHARGED FROM A SNF IN [facility] AND WAS ONLY HOME FOR A FEW DAYS, [facility] IS CONCERNED ABOUT BEING ABLE TO CARE FOR HER IN THE STATE SHE IS IN AND WOULD LIKE STR IN A CLOSER FACILITY HOWEVER PT IS NOT COVID VACCINATED. MIKO REPORTS PT USES A WALKER, HAS [facility] [employer] K[employer] FOR 1-2HRS A DAY AND [facility], ARIE REPORTS [facility] WAS SUPPOSED TO COME TO [facility] FOR ADDITIONAL HRS AND REFFERALS HAVE BEEN SENT TO [facility] AND [facility]. PCP VERIFIED BRITTANI NAME, NO COVID VAXA AND HCP IS S.Soni CROUCH AND COPY ON FILE FROM PREVIOUS ADMIT.
--- NOTE | 2023-01-31 16:23 | PM.EVENT ---
Event Note Date of Service: 01/31/23 Event Note: Chart reviewed patient examined. Agree with history physical exam and plan as outlined Time Spent With Patient Time: Total time managing care of this patient today ____ minutes.
--- NOTE | 2023-01-31 16:59 | PM.EVENT ---
Event Note Date of Service: 01/31/23 Event Note: Pt seen and examined Chart reviewed Full consult dictated Hyponatremia -Prerenal IVF with D% W Fluid restriction Target Na 132- 135 over 24 hr hrs Thx Time Spent With Patient Time: Total time managing care of this patient today ____ minutes.
[2023-01-31] MEDS: Acetaminophen 325 MG TABLET 650 MG PO (17:56)
[2023-02-01] MEDS: Acetaminophen 325 MG TABLET 650 MG PO (00:05)
--- NOTE | 2023-02-01 02:44 | CONS_ITS ---
DATE OF SERVICE: REASON FOR CONSULTATION: Consult requested by the medical team to evaluate and help in management of patient with hyponatremia. HISTORY OF PRESENT ILLNESS: The patient has altered mental status and a poor historian. Most of the history was obtained from the patient's medical record. The patient is a 67-year-old female with a past medical history of bipolar disorder, chronic hyponatremia with baseline sodium has remained around 130, history of CHF, COPD, coronary artery disease, type 2 diabetes mellitus, dementia, hypertension, schizophrenia, who presented to the hospital after her found her to be on the floor. She was sleepy and was evaluated in the ER and was found to have hyponatremia. She was hemodynamically stable. LABORATORY DATA: Lab work showed the patient's white count was 8.8, her hemoglobin was 8. The sodium was 126 with baseline somewhere around 130 to 135. She was given IV fluids, and her sodium increased to 132 this morning and IV fluid was discontinued and was initiated on D5 water. Her present sodium was 134. REVIEW OF SYSTEMS: Unable to obtain due to patient's overall condition. PAST MEDICAL HISTORY: History of hyponatremia, bipolar disorder, alcohol use disorder, cannabis use in the past, history of CHF, COPD, coronary artery disease, dementia, hypertension, the joint and left shoulder osteoarthritis suggesting a shortness of breath and sleep apnea. FAMILY HISTORY: With breast cancer in the sister. Past surgeries appendectomy. PERSONAL AND SOCIAL HISTORY: Patient lives with her spouse. Smokes cigarettes. Uses marijuana. ALLERGIES: INCLUDE FLUTICASONE, SALMETEROL, PAROXETINE. MEDICATION: At home include quetiapine, albuterol, aspirin, folic acid, metoprolol, montelukast, omeprazole, pravastatin, thiamine, and trazodone. PHYSICAL EXAMINATION: GENERAL: Patient is resting in the bed. Awake but not fully oriented. Blood pressure was 140/52, pulse 65, afebrile. HEENT: Shows pupils equal bilaterally to light. No jugular venous distention is noted. NECK: Supple. CARDIOVASCULAR SYSTEM: S1, S2 without rub. RESPIRATORY SYSTEM: Decreased in bases. There is no crepitation or rhonchi is noted. ABDOMEN: Obese, soft. Bowel sounds normal. EXTREMITIES: Showed no edema. LABORATORY DATA: Labs done today; sodium 134, potassium 4.7, chloride 101, CO2 22, BUN 14, creatinine 0.93. Hemoglobin 8.6, hematocrit 26.7, WBC 10.7, platelets were 367. IMPRESSION: 1. Elderly female with hyponatremia. I do not have any serum and urine osmolality on this patient at this juncture. Given improvement of sodium level with intravenous normal saline. The patient likely has a hypovolemic hyponatremia. She was not on any medications like hydrochlorothiazide at home, though trazodone has been attributed to cause hyponatremia. The sodium level corrected rapidly and she was placed on D5 water with the sodium stabilized around 134. 2. Altered mental status due to metabolic encephalopathy. 3. Acute urinary tract infection. 4. Chronic obstructive pulmonary disease exacerbation. RECOMMENDATION: At this juncture, we need to check serum and urine osmolality. We also need to check urine sodium levels. At this juncture, I would continue with D5 water as that has been rapid correction of sodium. We can discontinue the IV fluids once sodium levels hits 132. We should continue the present antibiotic regimen. She needs to be on a fluid restriction at 1500 mL/h. Thank you for allowing me to participate in medical management of the patient. MD VICTORINO Dickey/DERRELL / [id number]
[2023-02-01 03:39] VITALS: BP 144/75; PULSE 101; RESP 18; TEMP 36.2; O2SAT 99
[2023-02-01] MEDS: Dextrose 5 % 1,000 ML 100 ML IVCONT (03:59)
[2023-02-01] MEDS: methylPREDNISolone Sod Succ 40 MG/ML VIAL IVPUSH (06:00)
[2023-02-01 07:27] VITALS: PULSE 94; RESP 18; O2SAT 100
[2023-02-01] MEDS: Albuterol/Iprat 2.5/0.5MG 3 ML AMPUL.NEB INHALE ×2 (07:27→11:34)
[2023-02-01 07:35] VITALS: BP 149/68; PULSE 94; RESP 20; TEMP 36.8; O2SAT 100
[2023-02-01 07:44] LABS: MANUAL DIFF FLAG NO
[2023-02-01 07:50] LABS: Hematocrit 25.1 % (37.0-47.0); Hemoglobin 7.7 g/dl (12.0-16.0); Imm Gran Abs Auto 0.08 X10*3/uL (0.00-0.03); Imm Gran Pct Auto 1.1 % (0.0-0.4); Lymphocytes Absolute Auto 0.5 X10*3/uL (1.2-4.9); Mean Corpuscular HGB Conc 30.7 g/dl (31.0-35.0); Mean Corpuscular Hemoglobin 22.8 pg (27.0-33.0); Mean Corpuscular Volume 74.5 fL (80.0-98.0); Mean Platelet Volume 8.2 fL (9.4-12.3); Monocytes Absolute Auto 0.3 X10*3/uL (0.1-1.2); Monocytes Percent Auto 4.3 % (2-11); Neutrophils Absolute Auto 6.6 x10*3/uL (2.0-8.3); Neutrophils Percent Auto 87.6 % (45-73); Platelet Count 343 X10*3/uL (160-400); Red Blood Count 3.37 X10*6/uL (4.20-5.50); Red Cell Distribution Width 21.3 % (11.0-16.0); White Blood Count 7.5 X10*3/uL (4.8-10.8)
[2023-02-01] MEDS: QUEtiapine Fumarate 50 MG TABLET PO (08:06)
[2023-02-01] MEDS: Folic Acid 1 MG TABLET PO (08:06)
[2023-02-01] MEDS: Thiamine HCL 100 MG TABLET PO (08:06)
[2023-02-01] MEDS: Omeprazole 40 MG CAPSULE.DR PO (08:06)
[2023-02-01 08:07] LABS: Alanine Aminotransferase 8 U/L (0-31); Albumin Level 3.3 g/dL (3.5-5.0); Alkaline Phosphatase 123 U/L (39-117); Anion Gap 12 (12-20); Aspartate Amino Transferase 12 U/L (5-31); Bilirubin Total 0.2 mg/dL (0.0-1.0); Blood Urea Nitrogen 19 mg/dL (9-16); Calcium 8.6 mg/dL (8.4-10.2); Carbon Dioxide 26 mmol/L (22-29); Chloride 97 mmol/L (96-108); Creatinine Clr Calc Pharmacy 50.7; Estimated Glomerular Filt Rate 51; Glucose Random 157 mg/dL (60-115); Potassium 4.8 mmol/L (3.3-5.1); Sodium 130 mmol/L (135-145); Total Protein 6.6 g/dL (6.5-8.0)
[2023-02-01] MEDS: Aspirin Enteric Coated 81 MG TABLET.DR PO (08:07)
[2023-02-01] MEDS: Multivitamin TABLET 1 TAB PO (08:07)
[2023-02-01] MEDS: Metoprolol Succinate ER 25 MG TAB.ER.24H PO (10:55)
[2023-02-01 11:34] VITALS: PULSE 87; RESP 18; O2SAT 100
--- NOTE | 2023-02-01 11:41 | HO.PM.IMPN ---
Subjective Subjective Date of Service: 02/01/23 Interval History: Much more alert today. Sodium remains 130 Review of Systems Denies chest pain Denies shortness of breath Denies nausea vomiting diarrhea Denies fever chills Physical Exam Vital Signs: Vital Signs: Last Vital Signs Temp 98.3 F 02/01/23 07:35 Pulse 87 02/01/23 11:34 Resp 18 02/01/23 11:34 BP 149/68 H 02/01/23 07:35 Pulse Ox 100 02/01/23 07:35 O2 Del Method Nasal Cannula 02/01/23 07:35 O2 Flow Rate 1.5 02/01/23 07:35 BMI result Body Mass Index 31.9 Const: Other: No acute distress Resp: Other: Clear to auscultation bilaterally no rales or wheezes Cardio: Other: No S4; positive S1-S2; no S3 murmurs rubs or gallops GI: Other: Soft nontender nondistended normoactive bowel sounds Extrem: Other: No edema Objective Data Active Medications Acetaminophen (Acetaminophen 325 Mg Tablet) 650 mg PO Q6H PRN PRN Reason: Pain, Mild (Pain Scale 1-3) Last Admin: 02/01/23 00:05 Dose: 650 mg Documented By: EZEQUIEL Albuterol Sulfate (Albuterol Sulfate 90 Mcg 8 Gm Inhaler) 2 puff INHALE RQ4H PRN PRN Reason: Shortness Of Breath Or Wheezing Albuterol/Ipratropium (Albuterol/Iprat 2.5/0.5mg 3 Ml Ampul.Neb) 3 ml INHALE RQ4H PRN PRN Reason: Shortness of Breath/Wheezing Albuterol/Ipratropium (Albuterol/Iprat 2.5/0.5mg 3 Ml Ampul.Neb) 3 ml INHALE RQ4H WHILE AWAKE [facility] Last Admin: 02/01/23 11:34 Dose: 3 ml Documented By: KEKE Albuterol/Ipratropium (Albuterol/Iprat 2.5/0.5mg 3 Ml Ampul.Neb) 3 ml INHALE RQ4H PRN PRN Reason: Wheezing Aspirin (Aspirin Enteric Coated 81 Mg Tablet.) 81 mg PO BEDTIME [facility] Last Admin: 02/01/23 08:07 Dose: 81 mg Documented By: ANTHONY Baclofen (Baclofen 20 Mg Tablet) 20 mg PO DAILY PRN PRN Reason: Back Pain Docusate Sodium (Docusate Sodium 100 Mg Capsule) 100 mg PO DAILY PRN PRN Reason: Constipation Folic Acid (Folic Acid 1 Mg Tablet) 1 mg PO DAILY [facility] Last Admin: 02/01/23 08:06 Dose: 1 mg Documented By: ANTHONY Ceftriaxone Sodium 1 gm/ (Sodium Chloride) 50 mls @ 100 mls/hr IV Q24H [facility] Last Infusion: 01/31/23 23:00 Dose: 0 mls/hr Documented By: EZEQUIEL Dextrose (D5w) 1,000 mls @ 100 mls/hr IVCONT .Q10H [facility] Last Admin: 02/01/23 03:59 Dose: 100 mls/hr Documented By: EZEQUIEL Methylprednisolone Sodium Succinate (Methylprednisolone Sod Succ 40 Mg/Ml Vial) 40 mg IVPUSH Q12H [facility] Last Admin: 02/01/23 06:00 Dose: 40 mg Documented By: EZEQUIEL Metoprolol Succinate (Metoprolol Succinate Er 25 Mg Tab.Er.24h) 25 mg PO DAILY [facility]; Protocol Last Admin: 02/01/23 10:55 Dose: 25 mg Documented By: ANTHONY Montelukast Sodium (Montelukast Sodium 10 Mg Tablet) 10 mg PO BEDTIME [facility] Multivitamins/Vitamin C (Multivitamin Tablet) 1 tab PO DAILY [facility] Last Admin: 02/01/23 08:07 Dose: 1 tab Documented By: ANTHONY Omeprazole (Omeprazole 40 Mg Capsule.Dr) 40 mg PO DAILY@0630 [facility] Last Admin: 02/01/23 08:06 Dose: 40 mg Documented By: ANTHONY Ondansetron HCl (Ondansetron Hcl 4 Mg/2 Ml Vial) 4 mg IVPUSH Q8H PRN PRN Reason: Nausea and Vomiting Pravastatin Sodium (Pravastatin Sodium 20 Mg Tablet) 20 mg PO BEDTIME [facility] Quetiapine Fumarate (Quetiapine Fumarate 50 Mg Tablet) 50 mg PO TID [facility] Last Admin: 02/01/23 08:06 Dose: 50 mg Documented By: ANTHONY Senna (Sennosides 8.6 Mg Tablet) 8.6 mg PO BID PRN PRN Reason: constipation Sodium Chloride (0.9 % Sodium Chloride Flush 3 Ml Syringe) 3 ml IVFLUSH QSHIFT [facility] Last Admin: 02/01/23 07:57 Dose: Not Given Documented By: ANTHONY Non-Admin Reason: IV Running Thiamine HCl (Thiamine Hcl 100 Mg Tablet) 100 mg PO DAILY [facility] Last Admin: 02/01/23 08:06 Dose: 100 mg Documented By: ANTHONY Trazodone HCl (Trazodone Hcl 50 Mg Tablet) 50 mg PO BEDTIME PRN PRN Reason: insomnia Labs 02/01/23 07:40 02/01/23 07:40 Labs: Laboratory Results - last 24 hr 02/01/23 02/01/23 07:40 07:40 MCV 74.5 L MCH 22.8 L MCHC 30.7 L RDW 21.3 H Plt Count 343 MPV 8.2 L Immature Gran % (Auto) 1.1 H Neut % (Auto) 87.6 H Lymph % (Auto) 7.0 L [place] % (Auto) 4.3 Eos % (Auto) 0.0 Baso % (Auto) 0.0 Lymph # (Auto) 0.5 L [place] # (Auto) 0.3 Eos # (Auto) 0.0 Baso # (Auto) 0.0 Abs Immat Gran (auto) 0.08 H Absolute Neuts (auto) 6.6 Absolute Nucleated RBC 0.000 Nucleated RBC % (auto) 0.0 Anion Gap 12 Estim Creat Clear Calc 50.7 Estimated GFR 51 Random Glucose 157 H Calcium 8.6 Total Bilirubin 0.2 AST 12 ALT 8 Alkaline Phosphatase 123 H Total Protein 6.6 Albumin 3.3 L Microbiology Microbiology Results: Microbiology 01/31/23 Unknown Urine Culture - Preliminary Urine clean catch - Clean Catch Midstream Gram negative aristides 01/31/23 03:13 Blood Culture - Preliminary Blood - Venous No growth after 24 hours. 01/31/23 03:13 Blood Culture - Preliminary Blood - Venous No growth after 24 hours. Assessment and Plan (1) Encephalopathy acute: Status: Acute (2) Acute UTI: Status: Acute Plan 67-year-old female with history of bipolar disorder, schizophrenia, CAD, COPD, presents the hospital with altered mentation; urine with active sediment consistent with UTI 1. Acute metabolic encephalopathy secondary to UTI (mentation appears back at baseline at this point) -preliminary culture results gram-negative rods -continue ceftriaxone pending ID and sensitivities 2.Acute hyponatremia - sodium 130 on D5W; goal is 132 prior to discharge... Will DC D5W -follow renals/divalents 3.Acute COPD exacerbation - continue Solu-Medrol a current dosings -DuoNebs q.4 hours while awake -titrate O2 to keep sats greater than equal 90% Patient will require ongoing hospitalization to document resolution of hyponatremia Time Spent With Patient Time: Total time managing care of this patient today ____ minutes. Quality Stroke Does the patient have a stroke diagnosis?: No VTE Prior VTE?: No VTE Risk Level:: Medical - moderate - high VTE Device Contraindication: Treatment Not Indicated VTE Drug Contraindication: N/A - Med Ordered
--- NOTE | 2023-02-01 12:21 | PM.DS ---
DS: Providers Provider Date of Service: 02/01/23 Date of admission: 01/31/23 03:13 Date of discharge: 02/01/23 Primary care physician: Ryder Monique MD Consults: 01/31/23 06:33 Consult to Nephrology Routine Consulting Provider: [facility] Reason for consultation: hyponatremia Has provider been notified: No DS: Diagnosis Discharge Diagnosis (1) Encephalopathy acute: Status: Acute (2) Acute UTI: Status: Acute DS: Summary Hospital Course Hospital Course: ound her on the floor.? Patient is very somnolent, awakes to sternal rib, but unable to give much history.? History is obtained from EMR as well as ED provider.? It appears the patient was found by her on the floor, on arrival of EMS patient was found to be minimally responsive, gurgling snoring respirations.? Narcan was given with no change in mentation.? Unclear if patient hit her head, or had loss of consciousness Unable to obtain review of system On arrival to the ED patient hemodynamically stable with no significant abnormal vitals labs are significant for WBC count of 8.8, hemoglobin of 8 which is around her baseline, hematocrit 25.5, pH of 7.48, sodium of 126, baseline previously 137( from december) UA positive for nitrites, leukocyte Estrace, WBC, bacteria Chest x-ray negative, head CT negative, for any acute changes, cervical spine negative Hospital Course\ Admitted to general medical floor. Given ceftriaxone and approximately 24 hours after admission patient is returned to baseline and is requesting discharge. Sodium is back in range at 130. Discuss with Nephrology okay for discharge in outpatient follow-up. Time Spent with Patient Time attestation: Total time managing care of this patient today ____ minutes. Discharge coordination time: Greater than 30 minutes Quality: Safe Use of Opioids Does Pt have an Active Cancer Diagnosis on the Problem List?: No Quality: Stroke Does the patient have a stroke diagnosis?: No Physical Exam Vital Signs: Vital Signs: Last Vital Signs Temp 98.3 F 02/01/23 07:35 Pulse 87 02/01/23 11:34 Resp 18 02/01/23 11:34 BP 149/68 H 02/01/23 07:35 Pulse Ox 100 02/01/23 07:35 O2 Del Method Nasal Cannula 02/01/23 07:35 O2 Flow Rate 1.5 02/01/23 07:35 BMI result Body Mass Index 31.9 Const: Other: No acute distress Resp: Other: Clear to auscultation bilaterally no rales or wheezes Cardio: Other: No S4; positive S1-S2; no S3 murmurs rubs or gallops GI: Other: Soft nontender nondistended normoactive bowel sounds Extrem: Other: No edema DS: Data Data Completed and Pending Completed studies during hospitalization [Text1]: Procedures Detoxification Services for Substance Abuse Treatment (05/01/21) Insertion of Infusion Device into Superior Vena Cava, Percutaneous Approach (05/01/21) Labs on day of discharge: Laboratory Results - last 24 hr 02/01/23 02/01/23 07:40 07:40 WBC 7.5 RBC 3.37 L Hgb 7.7 L Hct 25.1 L MCV 74.5 L MCH 22.8 L MCHC 30.7 L RDW 21.3 H Plt Count 343 MPV 8.2 L Immature Gran % (Auto) 1.1 H Neut % (Auto) 87.6 H Lymph % (Auto) 7.0 L [place] % (Auto) 4.3 Eos % (Auto) 0.0 Baso % (Auto) 0.0 Lymph # (Auto) 0.5 L [place] # (Auto) 0.3 Eos # (Auto) 0.0 Baso # (Auto) 0.0 Abs Immat Gran (auto) 0.08 H Absolute Neuts (auto) 6.6 Absolute Nucleated RBC 0.000 Nucleated RBC % (auto) 0.0 Sodium 130 L Potassium 4.8 Chloride 97 Carbon Dioxide 26 Anion Gap 12 BUN 19 H Creatinine 1.06 Estim Creat Clear Calc 50.7 Estimated GFR 51 Random Glucose 157 H Calcium 8.6 Total Bilirubin 0.2 AST 12 ALT 8 Alkaline Phosphatase 123 H Total Protein 6.6 Albumin 3.3 L Preliminary micro results at discharge 01/31/23 Unknown Urine Culture - Preliminary Urine clean catch - Clean Catch Midstream Gram negative aristides 01/31/23 03:13 Blood Culture - Preliminary Blood - Venous No growth after 24 hours. 01/31/23 03:13 Blood Culture - Preliminary Blood - Venous No growth after 24 hours. Discharge Plan Discharge Anticipated Discharge Date/Time: 02/01/23 12:16 Patient Disposition: Home Health Service Discharge Diagnosis: Acute metabolic encephalopathy Referrals: meir [Other] - 1 Week Physician,Unknown Lala [Physician] - 1 Week Discharge Medications: New cefuroxime axetil 500 mg tablet 500 mg PO BID 7 Days Qty: 14 0RF prednisone 10 mg tablet See Rx Instructions .Route .COMPLEX Qty: 45 0RF Rx Instructions: 10 mg orally; 5 tabs p.o. daily x3 days; 4 tabs p.o. daily x3 days; 3 tabs daily x3 days; 2 tabs daily x3 days; 1 tab daily x3 days Continued quetiapine 50 mg tablet 50 mg PO TID multivitamin [Daily-Cony] Tablet 1 tab PO DAILY 30 Days Qty: 30 0RF ipratropium-albuterol 0.5 mg-3 mg(2.5 mg base)/3 mL solution for nebulization 1 amp inhalation Q4H PRN (Reason: Wheezing) 30 Days Qty: 30 0RF acetaminophen 650 mg tablet extended release 1 tab PO BID PRN (Reason: pain) 30 Days Qty: 60 0RF baclofen 20 mg Tablet 20 mg PO DAILY PRN (Reason: Back Pain) 30 Days Qty: 30 0RF trazodone 50 mg tablet 1 tab PO BEDTIME PRN (Reason: insomnia) omeprazole 40 mg capsule,delayed release(DR/EC) 1 cap PO DAILY@0630 montelukast 10 mg tablet 1 tab PO BEDTIME pravastatin 20 mg tablet 1 tab PO BEDTIME metoprolol succinate 25 mg tablet extended release 24 hr 1 tab PO DAILY albuterol sulfate [Ventolin HFA] 90 mcg/actuation HFA aerosol inhaler 2 puff INHALATION Q4-6H PRN (Reason: Shortness Of Breath Or Wheezing) thiamine HCl (vitamin B1) 100 mg tablet 1 tab PO DAILY aspirin 81 mg tablet,delayed release (DR/EC) 1 tab PO BEDTIME folic acid 1 mg tablet 1 mg PO DAILY fluticasone propion-salmeterol [Advair Diskus] 250-50 mcg/dose blister with device 1 ea INHALATION BID sennosides [senna] 8.6 mg tablet 8.6 mg PO BID PRN (Reason: constipation) ondansetron HCl 4 mg tablet 4 mg PO BID PRN (Reason: nausea) ferrous sulfate [FeroSul] 325 mg (65 mg iron) tablet 325 mg PO QAM Discharge Orders: Discharge Order (Routine); Ordered 02/01/23 Ordered By: Dionisio Garcia Diet: Advance to usual diet Activity on Discharge: As tolerated Stand Alone Forms: Patient Portal Discharge page Care Plan Goals: Take Ceftin 500 twice daily for 7 days to treat UTI Health Concerns: Prednisone taper for COPD exacerbation Plan of Treatment: Follow-up with PCP 2 weeks Assessment: See discharge summary
--- NOTE | 2023-02-01 14:05 | P.PNNP_ITS ---
Subjective Subjective Date of Service: 02/01/23 Interval history: Seen and examined, events noted Physical Exam Vital Signs: Vital Signs: Last Vital Signs Temp 98.3 F 02/01/23 07:35 Pulse 87 02/01/23 11:34 Resp 18 02/01/23 11:34 BP 149/68 H 02/01/23 07:35 Pulse Ox 100 02/01/23 07:35 O2 Del Method Nasal Cannula 02/01/23 07:35 O2 Flow Rate 1.5 02/01/23 07:35 BMI result Body Mass Index 31.9 Const: Other: No acute distress Eyes: General: appearance normal, both eyes and all related structures Resp: Other: Clear to auscultation bilaterally no rales or wheezes Effort & Inspection: normal respiratory effort Cardio: Other: No S4; positive S1-S2; no S3 murmurs rubs or gallops Rate: regular rate Rhythm: regular rhythm GI: Other: Soft nontender nondistended normoactive bowel sounds Palpation (GI): Soft to palpation Auscultation: normal bowel sounds Skin: General skin exam: no rashes or lesions noted Extrem: Other: No edema General: Yes normal to inspection and Yes no pedal edema Objective Data Labs 02/01/23 07:40 02/01/23 07:40 Labs: Laboratory Results - last 24 hr 02/01/23 02/01/23 07:40 07:40 WBC 7.5 RBC 3.37 L Hgb 7.7 L Hct 25.1 L MCV 74.5 L MCH 22.8 L MCHC 30.7 L RDW 21.3 H Plt Count 343 MPV 8.2 L Immature Gran % (Auto) 1.1 H Neut % (Auto) 87.6 H Lymph % (Auto) 7.0 L [place] % (Auto) 4.3 Eos % (Auto) 0.0 Baso % (Auto) 0.0 Lymph # (Auto) 0.5 L [place] # (Auto) 0.3 Eos # (Auto) 0.0 Baso # (Auto) 0.0 Abs Immat Gran (auto) 0.08 H Absolute Neuts (auto) 6.6 Absolute Nucleated RBC 0.000 Nucleated RBC % (auto) 0.0 Sodium 130 L Potassium 4.8 Chloride 97 Carbon Dioxide 26 Anion Gap 12 BUN 19 H Creatinine 1.06 Estim Creat Clear Calc 50.7 Estimated GFR 51 Random Glucose 157 H Calcium 8.6 Total Bilirubin 0.2 AST 12 ALT 8 Alkaline Phosphatase 123 H Total Protein 6.6 Albumin 3.3 L Microbiology Microbiology Results: Microbiology 01/31/23 Unknown Urine clean catch - Clean Catch Midstream Urine Culture - Preliminary Gram negative aristides 01/31/23 03:13 Blood - Venous Blood Culture - Preliminary No growth after 24 hours. 01/31/23 03:13 Blood - Venous Blood Culture - Preliminary No growth after 24 hours. Procedures Date of Service Date of Service: 02/01/23 Assessment & Plan Assessment and plan (1) Encephalopathy acute: Status: Acute (2) Acute UTI: Status: Acute Plan - HypoNa: Sna 126 on adm--> 134 and now 130 afteer gentle D5W as cocnern for too rapid correction reveiwing rec she has h/o recurrent epsiodes of hypoNa that are transient No urine osm/Na doone at time of SNa 126---suspecy psych polydipsia given psych history and Urin sg < 1.005 on adm and relative rapid sefl correction REC: d./c D5W; restrict PO fluids to 2 /24 hrs; if hyp[Jina recurs then needs TSH and am cortisol and urine osm/Na; ok to d/c from renal standpoint Time Spent With Patient Time: Total time managing care of this patient today ____ minutes. Progress Note: Quality Stroke Does the patient have a stroke diagnosis?: No
== END 2023-02-01 16:19 | disposition home health service (06) ==
LOC: HO.ED 01-31 03:36 → HO.EDOVER 01-31 03:40 → HO.S3 01-31 11:12
PROVIDERS: Admitting Provider Internal Medicine; Emergency Provider Student in an Organized Health Care Education/Training Program; PCP Internal Medicine Geriatric Medicine; Visit Provider Hospitalist
DX: R41.82 Altered mental status, unspecified (principal); G93.41 Metabolic encephalopathy; N39.0 Urinary tract infection, site not specified; B96.20 Unspecified Escherichia coli [E. coli] as the cause of diseases classified elsewhere; E87.1 Hypo-osmolality and hyponatremia; J44.1 Chronic obstructive pulmonary disease with (acute) exacerbation; E11.9 Type 2 diabetes mellitus without complications; I11.0 Hypertensive heart disease with heart failure; I50.9 Heart failure, unspecified; F31.9 Bipolar disorder, unspecified; F20.9 Schizophrenia, unspecified; F03.90 Unspecified dementia, unspecified severity, without behavioral disturbance, psychotic disturbance, mood disturbance, and anxiety; F12.20 Cannabis dependence, uncomplicated; Z87.891 Personal history of nicotine dependence; Z79.899 Other long term (current) drug therapy; Z79.02 Long term (current) use of antithrombotics/antiplatelets; Z79.82 Long term (current) use of aspirin
CPT/HCPCS: 36415; 51701; 70450; 71045; 72125; 80048; 80053; 80143; 80179; 80307; 81001; 82803; 82947; 83605; 85025; 85610; 87040; 87086; 87088; 87186; 93005; 94640; 96361; 96365; 96366; 96367; 96375; 99221; 99285; J0696; J2060; J2920

== ENCOUNTER 2023-03-01 20:02 | Emergency (ER) | payer OTHER, SELFPAY ==
--- NOTE | ~2023-03-01 | CT_ITS ---
EXAMINATION: CT HEAD WITHOUT IV CONTRAST INDICATION: Headache status-post fall. COMPARISON: CT brain dated 01/30/2023. TECHNIQUE: Multidetector CT acquisitions of the head was obtained without IV contrast. Multiplanar reformatted images are reviewed. Imaging is somewhat limited by motion artifact. This CT examination was performed using dose optimization techniques as appropriate, variously including the following: *Automated exposure control *Adjustment of mA and/or kV according to patient size (this includes techniques or standardized protocols for targeted exams where dose is matched to indication/reason for exam; i.e. extremities or head) *Use of iterative reconstruction technique DLP: 1640 mGy-cm (head and cervical spine) FINDINGS: There is no intracranial hemorrhage, hydrocephalus, extra-axial surface collection, midline shift, or other herniation pattern. Fitch to white matter differentiation is diffusely maintained without evidence of an evolved acute territorial infarct. The basilar cisterns are preserved. No significant soft tissue abnormality. No acute osseous abnormality. There is hyperostosis frontalis interna. The paranasal sinuses are well aerated and clear. The right mastoid air cells are clear. There is a stable well marginated cavity noted within the left mastoid. CT/CT cervical spine wo IV con IMPRESSION: 1. No acute intracranial abnormality. 2. There is again a well marginated cavity noted within the left mastoid, suggesting possible cholesteatoma formation. EXAMINATION: CT CERVICAL SPINE WITHOUT CONTRAST CLINICAL INFORMATION: Pain status-post fall. COMPARISON: CT cervical spine dated 01/30/2023. TECHNIQUE: Without the addition of intravenous contrast, multiple contiguous multidetector transaxial sections are obtained through the cervical spine. Multiplanar reformatted images are submitted. This CT examination was performed using dose optimization techniques as appropriate, variously including the following: *Automated exposure control *Adjustment of mA and/or kV according to patient size (this includes techniques or standardized protocols for targeted exams where dose is matched to indication/reason for exam; i.e. extremities or head) *Use of iterative reconstruction technique DLP: As above. FINDINGS: Vertebral body heights are normal. There is multi-level cervical degenerative disc disease and spondylosis, most pronounced extending from C3-C4 through C7-T1, where it is marked. No acute fracture or spondylolisthesis is seen. The posterior elements are intact. The dens is intact. No prevertebral soft tissue swelling or gas is seen. The bilateral lung apices appear clear. IMPRESSION: There is multi-level marked cervical degenerative disc disease and spondylosis. No acute fracture or spondylolisthesis is seen. Fleischner guidelines were followed.
[2023-03-01 20:11] VITALS: BP 142/98; PULSE 83; O2SAT 98
[2023-03-01 20:12] VITALS: BP 160/90; PULSE 90; RESP 16; TEMP 36.4; O2SAT 99; BMI 38.5
[2023-03-01 23:37] VITALS: RESP 17
--- NOTE | 2023-03-02 00:31 | ED.GENADULT ---
HPI - General Adult General Chief complaint: Fall Stated complaint: Fall with head strike Time Seen by Provider: 03/01/23 20:13 Source: patient and interpreter translator ([place]) Mode of arrival: ambulatory History of Present Illness HPI narrative: 67-year-old female history of alcohol abuse presents to ED for fall. Patient herself denies falling but admits to drinking 3 beers. Patient denies any pain. Patient states her called the ambulance on her. Patient admits to arguing with . Patient denies any back pain or abdominal pain. Related Data Home Medications Medication Instructions Recorded Confirmed quetiapine 50 mg tablet 50 mg PO TID 07/26/22 03/03/23 albuterol sulfate 90 mcg/actuation 2 puff inhalation Q4-6H PRN 11/26/22 03/03/23 aerosol inhaler (Ventolin HFA) Shortness Of Breath Or Wheezing aspirin 81 mg tablet,delayed 1 tab PO BEDTIME 11/26/22 03/03/23 release folic acid 1 mg tablet 1 mg PO DAILY 11/26/22 03/03/23 metoprolol succinate 25 mg 1 tab PO DAILY 11/26/22 03/03/23 tablet,extended release 24 hr montelukast 10 mg tablet 1 tab PO BEDTIME 11/26/22 03/03/23 omeprazole 40 mg capsule,delayed 1 cap PO DAILY@0630 11/26/22 03/03/23 release pravastatin 20 mg tablet 1 tab PO BEDTIME 11/26/22 03/03/23 thiamine HCl (vitamin B1) 100 mg 1 tab PO DAILY 11/26/22 03/03/23 tablet trazodone 50 mg tablet 1 tab PO BEDTIME PRN insomnia 11/26/22 03/03/23 ferrous sulfate 325 mg (65 mg 325 mg PO DAILY 01/31/23 03/03/23 iron) tablet (FeroSul) fluticasone 250 mcg-salmeterol 50 1 ea inhalation BID 01/31/23 03/03/23 mcg/dose blistr powdr for inhalation (Advair Diskus) ondansetron HCl 4 mg tablet 4 mg PO BID PRN nausea 01/31/23 03/03/23 sennosides 8.6 mg tablet (senna) 8.6 mg PO BID PRN constipation 01/31/23 03/03/23 ipratropium 0.5 mg-albuterol 3 mg 3 ml inhalation Q6H PRN Shortness 03/03/23 03/03/23 (2.5 mg base)/3 mL nebulization Of Breath soln Previous Rx's Medication Instructions Recorded acetaminophen 650 mg 1 tab PO BID PRN pain 30 days #60 04/29/22 tablet,extended release tabs baclofen 20 mg tablet 20 mg PO DAILY PRN Back Pain 30 04/29/22 days #30 tabs multivitamin (Daily-Cony tablet) 1 tab PO DAILY 30 days #30 tabs 04/29/22 Allergies Allergy/AdvReac Type Severity Reaction Status Date / Time fluticasone Allergy Unknown Verified 11/25/22 17:15 [From Advair Diskus] salmeterol Allergy Unknown Verified 11/25/22 17:15 [From Advair Diskus] paroxetine [From Paxil] AdvReac Intermediate Nausea and Verified 11/25/22 17:15 Vomiting Review of Systems Review of Systems: fall and hit head drinking. Yes all other systems are reviewed and are negative [facility] Past Medical History Medical History (Updated 03/04/23 @ 14:24 by Inge Maxwell CNP) Acute hyponatremia Acute hyponatremia Alcohol use disorder Bipolar 1 disorder Bipolar I disorder Cannabis use disorder, moderate, dependence Chronic hyponatremia Congestive heart failure COPD (chronic obstructive pulmonary disease) Coronary artery disease Dementia Diabetes Effusion of shoulder joint, left Family history of breast cancer Hypertension Kors[place]off disease Mass of joint of left shoulder Osteoarthritis Schizophrenia Shortness of breath Sleep apnea Surgical History Hx of appendectomy Family History Family History Sister Breast cancer, Onset Age: 40 Sister Breast cancer, Onset Age: 50 Social History Social History Household Members: Spouse Housing: Apartment Do you presently have visiting nurse or other home services: Yes Unable to assess alcohol history related to: Unable to respond Alcohol intake: current Alcohol intake frequency: a few times a week Alcohol type: beer Patient Tobacco Use Status: Tobacco use Unknown Tobacco use type: Cigarette Cigarettes Per Day: 5 Years Smoked: 53 e-Cigarette/Vaping Use: Never Used Second Hand Smoke Exposure: Yes Substance Use Type: Marijuana Advance Directives Date on File: 10/10/20 service: No Current occupational status: unemployed, disabled and other Sexual orientation: Straight/Heterosexual Physical Exam ED Vital Signs: Vital Signs - 24 hr 03/01/23 20:12 03/01/23 23:37 03/02/23 01:11 Temperature 97.5 F Pulse Rate 90 89 Respiratory Rate 16 17 17 Blood Pressure 160/90 H 139/59 L Pulse Oximetry 99 92 Oxygen Delivery Method Room Air Room Air BMI result Body Mass Index 38.5 Const General: cooperative, healthy appearing, comfortable, no acute distress, well developed, alert, awake and Physically active Orientation/consciousness: oriented to person, oriented to place, oriented to time and patient oriented x3 HENMT Head: Yes normal to inspection, Yes No palpable skull fracture present, Yes normocephalic, Yes atraumatic and No abrasion Ears: hearing grossly normal bilaterally, external ears normal, TM's normal bilaterally, TM normal on the right, TM normal on the left, EAC's normal and mastoids normal Eyes General: appearance normal, both eyes and all related structures Neck Neck: Yes normal visual inspection, Yes full ROM, Yes no lymphadenopathy, Yes no meningeal signs, Yes trachea midline, Yes supple, No anterior neck swelling and No tender Chest Chest palpation & inspection: normal inspection of the chest and normal palpation of entire chest wall Resp Effort & Inspection: normal respiratory effort and able to speak in complete sentences Auscultation: clear to auscultation bilaterally Cardio Jugular venous distension: no JVD Heart sounds: S1 normal heart sound present and S2 normal heart sound present GI Inspection: Yes normal to inspection and No abdominal wall ecchymosis Palpation (GI): Soft to palpation, not firm, nontender, no guarding and not rigid General: No CVA tenderness and Yes no CVA tenderness Back/Spine/Pelvis Back: no CVA tenderness, No CVA tenderness and No back tenderness Skin General skin exam: no rashes or lesions noted and elasticity normal Neuro General: oriented to person, oriented to place, oriented to time, patient oriented x3, tone normal, moves all extremities, Normal light touch and pain sensation, no meningeal signs, no focal motor deficits, CN's II-XI intact bilaterally and normal sensation to monofilament Extrem General: Yes normal to inspection and Yes full ROM Psych Other: Alcohol on breath Appearance: grossly normal Course Course Course Narrative: Patient's only complaint was that she wanted to urinate. When she urinated patient for relieved. Patient denies any abdominal pain or back pain. Patient denies any chest pain shortness of breath or headache. Due to patient denied falling and admit to drinking alcohol in being brought to the ED for falling. Patient is sent for head CT Scan and cervical spine CT scan. Negative for any abdominal or lumbar bar spine tenderness on palpation. Patient has complete range of motion of extremities. History was received with paraprofessional interpreter. Reevaluation(s) Reevaluation #1: Patient is sleeping comfortably in bed. Time: 02:11 Medical Decision Making Medical Decision Making MDM Narrative: 67-year-old female presents to ED for drinking alcohol and falling hitting head. Patient denies back or abdominal pain. Patient denies falling but states she has felt as per EMS. Patient does not want detox. Head CT and cervical spine CT scan normal. Patient does not want detox. Patient will be discharged with ambulance. Differential Diagnosis Differential Diagnoses: The differential diagnosis associated with the presentation includes (Brain bleed, skull fracture, cervical spine fracture) Admission/Observation Consideration of admission/observation: Escalation of care including admission/observation considered Independent Interpretation I performed an independent interpretation of an: CT Scan Radiology Impression Discussion of test interpretation with radiology: I have reviewed the radiologist's reading. Discharge Plan Discharge Clinical Impression: Alcohol abuse, Fall, Head injury Patient Disposition: Home, Self-Care Instructions: Fall Prevention for Older Adults (ED), Head Injury (ED), Abuse of Alcohol (DC) Additional Instructions: Recomendar seguimiento con el proveedor de atenci?n primaria. La tomograf?a computarizada de la morales y el ron result? normal. Regrese al servicio de urgencias de inmediato si tiene dolor abdominal, dolor en el pecho, dificultad para respirar, dolor de espalda, sangrado rectal, v?mitos con leslie, leslie en la orina, dolor en el pecho, dificultad para respirar o cualquier otro s?ntoma preocupante. Prescriptions: No Action quetiapine 50 mg tablet 50 mg PO TID multivitamin [Daily-Cony] Tablet 1 tab PO DAILY 30 Days Qty: 30 0RF acetaminophen 650 mg tablet extended release 1 tab PO BID PRN (Reason: pain) 30 Days Qty: 60 0RF baclofen 20 mg Tablet 20 mg PO DAILY PRN (Reason: Back Pain) 30 Days Qty: 30 0RF trazodone 50 mg tablet 1 tab PO BEDTIME PRN (Reason: insomnia) omeprazole 40 mg capsule,delayed release(DR/EC) 1 cap PO DAILY@0630 montelukast 10 mg tablet 1 tab PO BEDTIME pravastatin 20 mg tablet 1 tab PO BEDTIME metoprolol succinate 25 mg tablet extended release 24 hr 1 tab PO DAILY albuterol sulfate [Ventolin HFA] 90 mcg/actuation HFA aerosol inhaler 2 puff INHALATION Q4-6H PRN (Reason: Shortness Of Breath Or Wheezing) thiamine HCl (vitamin B1) 100 mg tablet 1 tab PO DAILY aspirin 81 mg tablet,delayed release (DR/EC) 1 tab PO BEDTIME folic acid 1 mg tablet 1 mg PO DAILY fluticasone propion-salmeterol [Advair Diskus] 250-50 mcg/dose blister with device 1 ea INHALATION BID sennosides [senna] 8.6 mg tablet 8.6 mg PO BID PRN (Reason: constipation) ondansetron HCl 4 mg tablet 4 mg PO BID PRN (Reason: nausea) ferrous sulfate [FeroSul] 325 mg (65 mg iron) tablet 325 mg PO DAILY ipratropium-albuterol 0.5 mg-3 mg(2.5 mg base)/3 mL Solution For Nebulization 3 ml INHALATION Q6H PRN (Reason: Shortness Of Breath) Interventions: ED Discharge Assessment Last Done: 03/02/23 02:33 Discharge Date/Time: 03/02/23 02:34 Print Language: [place]
[2023-03-02 01:11] VITALS: BP 139/59; PULSE 89; RESP 17; O2SAT 92
--- NOTE | 2023-03-02 01:31 | MHC.EDTECH ---
pt found to be saturated in urine, with purewick on floor. pt cleaned, linens changed, pt given warm blankets. pt now awaiting ambulance home.
== END 2023-03-02 02:34 | disposition home or self-care (01) ==
PROVIDERS: Emergency Provider Internal Medicine
DX: F10.10 Alcohol abuse, uncomplicated (principal); Y90.9 Presence of alcohol in blood, level not specified; S09.90XA Unspecified injury of head, initial encounter; X58.XXXA Exposure to other specified factors, initial encounter; F17.210 Nicotine dependence, cigarettes, uncomplicated; F12.90 Cannabis use, unspecified, uncomplicated; Z79.82 Long term (current) use of aspirin; Z79.02 Long term (current) use of antithrombotics/antiplatelets; Z79.899 Other long term (current) drug therapy; Y93.9 Activity, unspecified; Y92.9 Unspecified place or not applicable; Y99.9 Unspecified external cause status
CPT/HCPCS: 70450; 72125; 99284

== ENCOUNTER 2023-03-02 20:24 | Inpatient (IN) | payer OTHER, SELFPAY ==
[2023-03-02] VITALS (12 sets, daily range): BP systolic 120–180; BP diastolic 39–107; PULSE 98–116; RESP 15–34; TEMP 37.1; O2SAT 88–96; BMI 32.9
--- NOTE | ~2023-03-02 | XR_ITS ---
EXAMINATION: XR CHEST CLINICAL INFORMATION: Hypoxia COMPARISON: 01/31/2023 TECHNIQUE: Frontal view of the chest was obtained. FINDINGS: Cardiac leads overlie the chest. The lungs are well expanded. Now consolidation or effusion. Central vascular prominence without overt edema. No pneumothorax. The cardiomediastinal silhouette is within normal limits. No acute osseous abnormality. Advanced degenerative changes at the shoulders. XR/XR chest 1V IMPRESSION: Central vascular prominence without overt edema.
--- NOTE | ~2023-03-02 | CT_ITS ---
EXAMINATION: CT HEAD WITHOUT CONTRAST CLINICAL INFORMATION: Headache status-post fall. COMPARISON: CT brain dated 03/01/2023. TECHNIQUE: Contiguous axial imaging was performed from the skull base to vertex without intravenous administration of contrast. Multiplanar reformatted images are submitted. This CT examination was performed using dose optimization techniques as appropriate, variously including the following: *Automated exposure control *Adjustment of mA and/or kV according to patient size (this includes techniques or standardized protocols for targeted exams where dose is matched to indication/reason for exam; i.e. extremities or head) *Use of iterative reconstruction technique DLP: 1699 mGy-cm (head and cervical spine) FINDINGS: Imaging is significantly limited by motion artifact. The ventricular system is normal in size and configuration. The bilateral hemispheres and the cerebellum is no acute mass, hemorrhage, infarction or extra-axial collection. The basilar cisterns are patent. The sulci are not widened. No acute osseous abnormality is seen. There is hyperostosis from callus interna. The paranasal sinuses are well aerated and clear. Again, a well marginated cavity is noted within the left mastoid, suggesting possible cholesteatoma formation. CT/CT cervical spine wo IV con IMPRESSION: No acute intracranial pathology. There is no significant interim change. Of note, imaging is significantly limited by motion artifact. EXAMINATION: CT CERVICAL SPINE WITHOUT CONTRAST CLINICAL INFORMATION: Neck pain status-post fall. COMPARISON: CT cervical spine dated 03/01/2023. TECHNIQUE: Without the addition of intravenous contrast, multiple contiguous multidetector This CT examination was performed using dose optimization techniques as appropriate, variously including the following: *Automated exposure control *Adjustment of mA and/or kV according to patient size (this includes techniques or standardized protocols for targeted exams where dose is matched to indication/reason for exam; i.e. extremities or head) *Use of iterative reconstruction technique DLP: As above. FINDINGS: Vertebral body heights are normal. There is multi-level cervical degenerative disc disease and spondylosis, most pronounced extending from C3-C4 through C7-T1, where it is marked. No acute fracture or spondylolisthesis is seen. The posterior elements are intact. There is multi-level cervical facet arthropathy. The dens is intact. No prevertebral soft tissue swelling is seen. The bilateral lung apices appear clear. IMPRESSION: Again, there are multi-level marked degenerative changes of the cervical spine. No acute fracture or spondylolisthesis is seen. Fleischner guidelines were followed.
--- NOTE | 2023-03-02 20:38 | ECG_ITS ---
Test Reason : ALT MENTAL STATUS Blood Pressure : / mmHG Vent. Rate : 084 BPM Atrial Rate : 084 BPM P-R Int : 146 ms QRS Dur : 090 ms QT Int : 374 ms P-R-T Axes : 070 -15 050 degrees QTc Int : 441 ms Normal sinus rhythm Possible Left atrial enlargement Septal infarct , age undetermined T wave abnormality, consider anterior ischemia Abnormal ECG When compared with ECG of 30-JAN-2023 16:18, No significant changes seen Referred By: Ludy Saldivar Electronically Signed By:Wilber Kincaid
--- NOTE | 2023-03-02 20:40 | PC.NURSE ---
this rn assumed care of pt @ 2034. pt biba from home. per pt pt found with decreased responsiveness on the kitchen floor. unknown head strike. per c staff and ems staff pt not at baseline with decreased responsiveness. pt combative with and agitated when attempted iv placement and obtaining bloodwork. dr leann carmen, charger tester, this rn , and assistant professor nurse education at bedside. pt placed on security monitor.
[2023-03-02] MEDS: diphenhydrAMINE HCL 50 MG/ML VIAL IM (20:57)
--- NOTE | 2023-03-02 20:57 | ED.GENADULT ---
HPI - General Adult General Chief complaint: Fall Stated complaint: fall headstrike HTN AMS Time Seen by Provider: 03/02/23 20:43 Source: EMS Mode of arrival: EMS Limitations: altered mental status History of Present Illness HPI narrative: 67-year-old female history of alcohol abuse, cannabis use disorder, obesity presenting for evaluation of altered mental status was found at home on the ground by , patient was going to the Fridge to get it drink, unclear patient had head strike or loss of consciousness however was found altered, unable to speak, not following commands with a retic behavior. Unable to obtain history or HPI from patient. Unable to obtain NIH stroke scale or GCS due to patient not being able to answer questions. Related Data Home Medications Medication Instructions Recorded Confirmed quetiapine 50 mg tablet 50 mg PO TID 07/26/22 01/31/23 albuterol sulfate 90 mcg/actuation 2 puff inhalation Q4-6H PRN 11/26/22 01/31/23 aerosol inhaler (Ventolin HFA) Shortness Of Breath Or Wheezing aspirin 81 mg tablet,delayed 1 tab PO BEDTIME 11/26/22 01/31/23 release folic acid 1 mg tablet 1 mg PO DAILY 11/26/22 01/31/23 metoprolol succinate 25 mg 1 tab PO DAILY 11/26/22 01/31/23 tablet,extended release 24 hr montelukast 10 mg tablet 1 tab PO BEDTIME 11/26/22 01/31/23 omeprazole 40 mg capsule,delayed 1 cap PO DAILY@0630 11/26/22 01/31/23 release pravastatin 20 mg tablet 1 tab PO BEDTIME 11/26/22 01/31/23 thiamine HCl (vitamin B1) 100 mg 1 tab PO DAILY 11/26/22 01/31/23 tablet trazodone 50 mg tablet 1 tab PO BEDTIME PRN insomnia 11/26/22 01/31/23 ferrous sulfate 325 mg (65 mg 325 mg PO QAM 01/31/23 01/31/23 iron) tablet (FeroSul) fluticasone 250 mcg-salmeterol 50 1 ea inhalation BID 01/31/23 01/31/23 mcg/dose blistr powdr for inhalation (Advair Diskus) ondansetron HCl 4 mg tablet 4 mg PO BID PRN nausea 01/31/23 01/31/23 sennosides 8.6 mg tablet (senna) 8.6 mg PO BID PRN constipation 01/31/23 01/31/23 Previous Rx's Medication Instructions Recorded acetaminophen 650 mg 1 tab PO BID PRN pain 30 days #60 04/29/22 tablet,extended release tabs baclofen 20 mg tablet 20 mg PO DAILY PRN Back Pain 30 04/29/22 days #30 tabs ipratropium 0.5 mg-albuterol 3 mg 1 amp inhalation Q4H PRN Wheezing 04/29/22 (2.5 mg base)/3 mL nebulization 30 days #30 multiple units soln multivitamin (Daily-Cony tablet) 1 tab PO DAILY 30 days #30 tabs 04/29/22 cefuroxime axetil 500 mg tablet 500 mg PO BID 7 days #14 tabs 02/01/23 prednisone 10 mg tablet See Rx Instructions .Route 02/01/23 .COMPLEX #45 tabs Allergies Allergy/AdvReac Type Severity Reaction Status Date / Time fluticasone Allergy Unknown Verified 11/25/22 17:15 [From Advair Diskus] salmeterol Allergy Unknown Verified 11/25/22 17:15 [From Advair Diskus] paroxetine [From Paxil] AdvReac Intermediate Nausea and Verified 11/25/22 17:15 Vomiting Review of Systems Review of Systems: Yes Unobtainable due to mental status PMFSH Past Medical History Attestation statement: The following information was validated with the patient. Source: nursing notes reviewed Medical History Acute hyponatremia Acute hyponatremia Alcohol use disorder Bipolar 1 disorder Bipolar I disorder Cannabis use disorder, moderate, dependence Chronic hyponatremia Congestive heart failure COPD (chronic obstructive pulmonary disease) Coronary artery disease Dementia Diabetes Effusion of shoulder joint, left Family history of breast cancer Hypertension Korsakoff disease Mass of joint of left shoulder Osteoarthritis Schizophrenia Shortness of breath Sleep apnea Surgical History Hx of appendectomy Family History Family History Sister Breast cancer, Onset Age: 40 Sister Breast cancer, Onset Age: 50 Social History Social History Household Members: Spouse Housing: Apartment Do you presently have visiting nurse or other home services: Yes Unable to assess alcohol history related to: Unknown Alcohol intake: current Alcohol intake frequency: 0-2 drinks per day Alcohol type: beer Patient Tobacco Use Status: Current everyday Tobacco user Tobacco use type: Cigarette Cigarettes Per Day: 5 Years Smoked: 53 e-Cigarette/Vaping Use: Never Used Second Hand Smoke Exposure: Yes Substance Use Type: Marijuana Advance Directives: Yes Advance Directives on File: Yes Advance Directives Date on File: 10/10/20 service: No Current occupational status: unemployed, disabled and other Sexual orientation: Straight/Heterosexual Physical Exam ED Vital Signs: Vital Signs - 24 hr 03/02/23 20:40 03/02/23 23:44 03/03/23 01:04 Temperature 98.8 F Pulse Rate 99 89 Respiratory Rate 34 H 18 Blood Pressure 120/101 H 151/68 H Pulse Oximetry 96 97 Oxygen Delivery Method Room Air Room Air BMI result Body Mass Index 32.9 vss Appearance: Patient altered unable to answer questions, retic behavior, combative. Head: Normocephalic, atraumatic, no step-offs or deformities Eyes: Pupils equal, round and reactive to light.? CVS: Normal heart rate and rhythm.? Pulses normal.? Respiratory: No respiratory distress.? Breath sounds normal.? Abdomen: Soft and nontender.? Skin: Skin warm and dry.? Normal skin color.? Normal skin turgor.? Extremities: No lower extremity edema.? 5/5 strength to bilateral upper and lower extremities Back: No midline tenderness, no C-spine tenderness, full range of motion, no CVA tenderness bilaterally Neuro: Unable to obtain neuro exam secondary to patient being altered. Patient moving all extremities, not oriented to person, place, time or situation. Course Reevaluation(s) Reevaluation #1: Patient is still combative, having a difficult time obtaining labs. Multiple nurses have tried an eye of also tried, lines infiltrate, patient will simple some out. Additional Haldol ordered. Medication were shins were given, order in chart. CT of head unremarkable. No intracranial hemorrhage or stroke,. Cervical spine unremarkable no fractures or dislocations or traumatic subluxations. Time: 22:00 Reevaluation #2: Finally able to obtain labs on this patient in IV. Labs pending Time: 23:36 Reevaluation #3: CBC with a baseline microcytic anemia, no acute findings. Patient's sodium 123, potassium 5.8. Will receive IV fluids as well as low, and will repeat chemistry. EKG still pending. Troponin negative x2. Coags unremarkable. Blood gas no acute finding. Ethanol negative . COVID negative. UA pending. Patient will likely be admitted for encephalopathy, weakness, falls. Based off labs I do not suspect this is encephalitis or meningitis. Time: 01:10 Additional Reevaluation(s): Patient much more awake, now having some gurgling will order chest CT. Hospitalist aware Medications Administered Discontinued Medications Generic Name Dose Route Start Last Admin Trade Name Freq PRN Reason Stop Dose Admin Diphenhydramine HCl 50 mg 03/02/23 20:53 03/02/23 20:57 Diphenhydramine Hcl 50 Mg/Ml Vial IM 03/02/23 20:54 50 mg ONCE ONE Administration Haloperidol Lactate 5 mg 03/02/23 20:53 03/02/23 20:58 Haloperidol Lactate 5 Mg/Ml Vial IM 03/02/23 20:54 5 mg ONCE ONE Administration Haloperidol Lactate 5 mg 03/02/23 21:36 03/02/23 22:25 Haloperidol Lactate 5 Mg/Ml Vial IM 03/02/23 21:37 5 mg ONCE ONE Administration Sodium Chloride 1,000 mls @ 999 mls/hr 03/03/23 00:15 03/03/23 00:18 Ns IV 03/03/23 01:15 999 mls/hr .Q1H1M YUMIKO Administration Midazolam HCl 2 mg 03/02/23 21:15 03/02/23 20:58 Midazolam Hcl 5 Mg/Ml Vial IVPUSH 03/02/23 21:16 2 mg ONCE ONE Administration Naloxone HCl 4 mg 03/02/23 20:42 03/02/23 21:22 Naloxone Hcl Nasal 4 Mg [place] NOSTRILALT 03/02/23 20:43 4 mg ONCE ONE Administration Medical Decision Making Medical Decision Making [facility] Narrative: 67-year-old female presents with altered mental status status post fall with head strike. Physical exam significant for Unable to obtain neuro exam secondary to patient being altered. Patient moving all extremities, not oriented to person, place, time or situation. Concerns for possible intracranial hemorrhage due to traumatic fall. Patient with altered mental status will rule out infection, electrolyte abnormalities, metabolic derangements. Plan labs, imaging. Patient unable to stay still, not following commands, will give IM Haldol and Versed to help com patient down. Unable to get IV as patient is combative. Patient not alert or oriented. Patient protecting her own airway at this time. Will continue to monitor. Differential Diagnosis Differential Diagnoses: The differential diagnosis associated with the presentation includes Concerns for possible intracranial hemorrhage due to traumatic fall. Patient with altered mental status will rule out infection, electrolyte abnormalities, metabolic derangements. Admission/Observation Consideration of admission/observation: Escalation of care including admission/observation considered Possible Lab Data MDM Lab Attestation statement: I reviewed the patient's lab results. 03/02/23 23:36 03/02/23 23:36 Labs: Lab Results 03/02/23 03/02/23 03/02/23 Range/Units 21:25 21:28 23:36 WBC (4.8-10.8) X10*3/uL RBC (4.20-5.50) X10*6/uL Hgb (12.0-16.0) g/dl Hct (37.0-47.0) % MCV (80.0-98.0) fL MCH (27.0-33.0) pg MCHC (31.0-35.0) g/dl RDW (11.0-16.0) % Plt Count (160-400) X10*3/uL MPV (9.4-12.3) fL Immature Gran % (Auto) (0.0-0.4) % Neut % (Auto) (45-73) % Lymph % (Auto) (20-40) % [place] % (Auto) (2-11) % Eos % (Auto) (0-4) % Baso % (Auto) (0-2) % Lymph # (Auto) (1.2-4.9) X10*3/uL [place] # (Auto) (0.1-1.2) X10*3/uL Eos # (Auto) (0.0-0.4) X10*3/uL Baso # (Auto) (0.0-0.2) X10*3/uL Abs Immat Gran (auto) (0.00-0.03) X10*3/uL Absolute Neuts (auto) (2.0-8.3) x10*3/uL Absolute Nucleated RBC (0.0-0.012) X10*3/uL Nucleated RBC % (auto) (0.0-0.2) /100WBC PT (10.0-13.1) SEC INR (0.9-1.1) VBG pH (7.32-7.43) VBG pCO2 mmHg VBG pO2 mmHg VBG HCO3 (22-26) mmol/L VBG O2 Saturation % VBG Base Excess mmol/L Sodium 123 L (135-145) mmol/L Potassium 5.8 H D (3.3-5.1) mmol/L Chloride 93 L (96-108) mmol/L Carbon Dioxide 17 L (22-29) mmol/L Anion Gap 19 (12-20) BUN 17 H (9-16) mg/dL Creatinine 1.40 (0.5-1.4) mg/dL Estim Creat Clear Calc 37.5 Estimated GFR 37 POC Glucose 160 H (60-115) mg/dL Random Glucose 118 H (60-115) mg/dL Lactic Acid (0.5-2.0) mmol/L Calcium 9.0 (8.4-10.2) mg/dL Magnesium 2.2 (1.6-2.6) mg/dL Total Bilirubin 0.7 (0.0-1.0) mg/dL AST 30 (5-31) U/L ALT 12 (0-31) U/L Alkaline Phosphatase 113 (39-117) U/L Ammonia (13-55) umol/L Total Creatine Kinase 80 (26-140) U/L Troponin I High Sens (<3.5-17.0) ng/L Total Protein 7.5 (6.5-8.0) g/dL Albumin 3.7 (3.5-5.0) g/dL Ethyl Alcohol < 10 mg/dL COVID-19 (ZAKIA) Negative (Negative) COVID-19 Clin Com See Note 03/02/23 03/02/23 03/02/23 Range/Units 23:36 23:36 23:36 WBC (4.8-10.8) X10*3/uL RBC (4.20-5.50) X10*6/uL Hgb (12.0-16.0) g/dl Hct (37.0-47.0) % MCV (80.0-98.0) fL MCH (27.0-33.0) pg MCHC (31.0-35.0) g/dl RDW (11.0-16.0) % Plt Count (160-400) X10*3/uL MPV (9.4-12.3) fL Immature Gran % (Auto) (0.0-0.4) % Neut % (Auto) (45-73) % Lymph % (Auto) (20-40) % [place] % (Auto) (2-11) % Eos % (Auto) (0-4) % Baso % (Auto) (0-2) % Lymph # (Auto) (1.2-4.9) X10*3/uL [place] # (Auto) (0.1-1.2) X10*3/uL Eos # (Auto) (0.0-0.4) X10*3/uL Baso # (Auto) (0.0-0.2) X10*3/uL Abs Immat Gran (auto) (0.00-0.03) X10*3/uL Absolute Neuts (auto) (2.0-8.3) x10*3/uL Absolute Nucleated RBC (0.0-0.012) X10*3/uL Nucleated RBC % (auto) (0.0-0.2) /100WBC PT 9.9 L (10.0-13.1) SEC INR 0.9 (0.9-1.1) VBG pH (7.32-7.43) VBG pCO2 mmHg VBG pO2 mmHg VBG HCO3 (22-26) mmol/L VBG O2 Saturation % VBG Base Excess mmol/L Sodium (135-145) mmol/L Potassium (3.3-5.1) mmol/L Chloride (96-108) mmol/L Carbon Dioxide (22-29) mmol/L Anion Gap (12-20) BUN (9-16) mg/dL Creatinine (0.5-1.4) mg/dL Estim Creat Clear Calc Estimated GFR POC Glucose (60-115) mg/dL Random Glucose (60-115) mg/dL Lactic Acid 2.0 (0.5-2.0) mmol/L Calcium (8.4-10.2) mg/dL Magnesium (1.6-2.6) mg/dL Total Bilirubin (0.0-1.0) mg/dL AST (5-31) U/L ALT (0-31) U/L Alkaline Phosphatase (39-117) U/L Ammonia (13-55) umol/L Total Creatine Kinase (26-140) U/L Troponin I High Sens < 2.7 (<3.5-17.0) ng/L Total Protein (6.5-8.0) g/dL Albumin (3.5-5.0) g/dL Ethyl Alcohol mg/dL COVID-19 (ZAKIA) (Negative) COVID-19 Clin Com 03/02/23 03/02/23 03/03/23 Range/Units 23:36 23:39 00:08 WBC 7.3 (4.8-10.8) X10*3/uL RBC 3.80 L (4.20-5.50) X10*6/uL Hgb 9.7 L D (12.0-16.0) g/dl Hct 29.8 L (37.0-47.0) % MCV 78.4 L (80.0-98.0) fL MCH 25.5 L (27.0-33.0) pg MCHC 32.6 (31.0-35.0) g/dl RDW 26.2 H (11.0-16.0) % Plt Count 199 D (160-400) X10*3/uL MPV 8.2 L (9.4-12.3) fL Immature Gran % (Auto) 2.9 H (0.0-0.4) % Neut % (Auto) 80.8 H (45-73) % Lymph % (Auto) 6.6 L (20-40) % [place] % (Auto) 9.5 (2-11) % Eos % (Auto) 0.1 (0-4) % Baso % (Auto) 0.1 (0-2) % Lymph # (Auto) 0.5 L (1.2-4.9) X10*3/uL [place] # (Auto) 0.7 (0.1-1.2) X10*3/uL Eos # (Auto) 0.0 (0.0-0.4) X10*3/uL Baso # (Auto) 0.0 (0.0-0.2) X10*3/uL Abs Immat Gran (auto) 0.21 H (0.00-0.03) X10*3/uL Absolute Neuts (auto) 5.9 (2.0-8.3) x10*3/uL Absolute Nucleated RBC 0.000 (0.0-0.012) X10*3/uL Nucleated RBC % (auto) 0.0 (0.0-0.2) /100WBC PT (10.0-13.1) SEC INR (0.9-1.1) VBG pH 7.48 H (7.32-7.43) VBG pCO2 28 mmHg VBG pO2 63 mmHg VBG HCO3 21 L (22-26) mmol/L VBG O2 Saturation 96.0 % VBG Base Excess -0.9 mmol/L Sodium (135-145) mmol/L Potassium (3.3-5.1) mmol/L Chloride (96-108) mmol/L Carbon Dioxide (22-29) mmol/L Anion Gap (12-20) BUN (9-16) mg/dL Creatinine (0.5-1.4) mg/dL Estim Creat Clear Calc Estimated GFR POC Glucose (60-115) mg/dL Random Glucose (60-115) mg/dL Lactic Acid (0.5-2.0) mmol/L Calcium (8.4-10.2) mg/dL Magnesium (1.6-2.6) mg/dL Total Bilirubin (0.0-1.0) mg/dL AST (5-31) U/L ALT (0-31) U/L Alkaline Phosphatase (39-117) U/L Ammonia 41 (13-55) umol/L Total Creatine Kinase (26-140) U/L Troponin I High Sens (<3.5-17.0) ng/L Total Protein (6.5-8.0) g/dL Albumin (3.5-5.0) g/dL Ethyl Alcohol mg/dL COVID-19 (ZAKIA) (Negative) COVID-19 Clin Com 03/03/23 Range/Units 00:22 WBC (4.8-10.8) X10*3/uL RBC (4.20-5.50) X10*6/uL Hgb (12.0-16.0) g/dl Hct (37.0-47.0) % MCV (80.0-98.0) fL MCH (27.0-33.0) pg MCHC (31.0-35.0) g/dl RDW (11.0-16.0) % Plt Count (160-400) X10*3/uL MPV (9.4-12.3) fL Immature Gran % (Auto) (0.0-0.4) % Neut % (Auto) (45-73) % Lymph % (Auto) (20-40) % [place] % (Auto) (2-11) % Eos % (Auto) (0-4) % Baso % (Auto) (0-2) % Lymph # (Auto) (1.2-4.9) X10*3/uL [place] # (Auto) (0.1-1.2) X10*3/uL Eos # (Auto) (0.0-0.4) X10*3/uL Baso # (Auto) (0.0-0.2) X10*3/uL Abs Immat Gran (auto) (0.00-0.03) X10*3/uL Absolute Neuts (auto) (2.0-8.3) x10*3/uL Absolute Nucleated RBC (0.0-0.012) X10*3/uL Nucleated RBC % (auto) (0.0-0.2) /100WBC PT (10.0-13.1) SEC INR (0.9-1.1) VBG pH (7.32-7.43) VBG pCO2 mmHg VBG pO2 mmHg VBG HCO3 (22-26) mmol/L VBG O2 Saturation % VBG Base Excess mmol/L Sodium (135-145) mmol/L Potassium (3.3-5.1) mmol/L Chloride (96-108) mmol/L Carbon Dioxide (22-29) mmol/L Anion Gap (12-20) BUN (9-16) mg/dL Creatinine (0.5-1.4) mg/dL Estim Creat Clear Calc Estimated GFR POC Glucose (60-115) mg/dL Random Glucose (60-115) mg/dL Lactic Acid (0.5-2.0) mmol/L Calcium (8.4-10.2) mg/dL Magnesium (1.6-2.6) mg/dL Total Bilirubin (0.0-1.0) mg/dL AST (5-31) U/L ALT (0-31) U/L Alkaline Phosphatase (39-117) U/L Ammonia (13-55) umol/L Total Creatine Kinase (26-140) U/L Troponin I High Sens < 2.7 (<3.5-17.0) ng/L Total Protein (6.5-8.0) g/dL Albumin (3.5-5.0) g/dL Ethyl Alcohol mg/dL COVID-19 (ZAKIA) (Negative) COVID-19 Clin Com Independent Interpretation I performed an independent interpretation of an: CT Scan Radiology Impression Discussion of test interpretation with radiology: I have reviewed the radiologist's reading. Core Measures AMI core measures followed: Yes Measure exclusions: not indicated Critical Care Time Critical Care Time Critical Care Time: Yes Total Critical Care Time: 35 Attestation: I attest to this time spent taking care of the patient, obtaining history, physical, reviewing labs, imaging, speaking to my attending Discharge Plan Discharge Clinical Impression: Acute UTI, Fall, AMS (altered mental status), Hyperkalemia, Acute hyponatremia, Encephalopathy Patient Disposition: Still a Patient
[2023-03-02] MEDS: Haloperidol Lactate 5 MG/ML VIAL IM ×2 (20:58→22:25)
[2023-03-02] MEDS: Midazolam HCl 5 MG/ML VIAL 2 MG IVPUSH (20:58)
--- NOTE | 2023-03-02 21:15 | PC.NURSE ---
pt agitated and combative while staff attempting to place iv line and obtain blood work.pt scratching self and at staff members. pt unable to follwo directions and no answering questions. pt medicated with benadryl 5mg IM, haldol 5mg im, and versed 2mg im. dr noriega placed order for versed 2mg per pharmacy versed order route unable to be changed in order. pt received versed 2mg im in L thigh.
[2023-03-02] MEDS: Naloxone HCl Nasal 4 MG SPRAY NOSTRILALT (21:22)
[2023-03-02 21:40] LABS: Glucose, Whole Blood 160 mg/dL (60-115)
--- NOTE | 2023-03-02 21:50 | MHC.EDTECH ---
Addendum entered by Jessica Izaguirre 03/02/23 21:59: unable to complete blood draw at this time Original Note: t/w attempted to draw labs on pt w/ 3x assist from pct krissy wu and rn michael. pt extremely combative even after chemical restraint. pt spitting, kicking, scratching. pt moved during blood draw. martha crenshaw
[2023-03-02 21:54] LABS: COVID-19 Test Negative (Negative); IDNOW Serial# 08D9AD1C
--- NOTE | 2023-03-02 22:35 | PC.NURSE ---
pt medicated according mar. pt given haldol 5mg im in R thigh. pt continuing to be noncompliant with pt care. pt pulling monitor off. unable to obtain blood work and iv placement.
[2023-03-02 23:47] LABS: VBG Base Excess -0.9 mmol/L; VBG HCO3 21 mmol/L (22-26); VBG pCO2 28 mmHg; VBG pH 7.48 (7.32-7.43); VBG pO2 63 mmHg
[2023-03-02 23:48] LABS: INTERNATIONAL NORM RATIO 0.9 (0.9-1.1); Prothrombin Time 9.9 SEC (10.0-13.1)
[2023-03-03] VITALS (14 sets, daily range): BP systolic 133–199; BP diastolic 57–105; PULSE 80–130; RESP 14–29; TEMP 36.3–36.7; O2SAT 90–98
[2023-03-03 00:03] LABS: Alanine Aminotransferase 12 U/L (0-31); Albumin Level 3.7 g/dL (3.5-5.0); Alkaline Phosphatase 113 U/L (39-117); Anion Gap 19 (12-20); Aspartate Amino Transferase 30 U/L (5-31); Bilirubin Total 0.7 mg/dL (0.0-1.0); Blood Urea Nitrogen 17 mg/dL (9-16); Carbon Dioxide 17 mmol/L (22-29); Chloride 93 mmol/L (96-108); Creatinine Clr Calc Pharmacy 37.5; Estimated Glomerular Filt Rate 37; Ethanol < 10 mg/dL; Glucose Random 118 mg/dL (60-115); Magnesium 2.2 mg/dL (1.6-2.6); Potassium 5.8 mmol/L (3.3-5.1); Sodium 123 mmol/L (135-145); Total Protein 7.5 g/dL (6.5-8.0); Troponin-I High Sensitivity < 2.7 ng/L (<3.5-17.0)
[2023-03-03 00:06] LABS: Ammonia 41 umol/L (13-55)
[2023-03-03 00:13] LABS: MANUAL DIFF FLAG NO
[2023-03-03 00:16] LABS: Basophils Percent Auto 0.1 % (0-2); Eosinophils Percent Auto 0.1 % (0-4); Hematocrit 29.8 % (37.0-47.0); Hemoglobin 9.7 g/dl (12.0-16.0); Imm Gran Abs Auto 0.21 X10*3/uL (0.00-0.03); Imm Gran Pct Auto 2.9 % (0.0-0.4); Lymphocytes Absolute Auto 0.5 X10*3/uL (1.2-4.9); Lymphocytes Percent Auto 6.6 % (20-40); Mean Corpuscular HGB Conc 32.6 g/dl (31.0-35.0); Mean Corpuscular Hemoglobin 25.5 pg (27.0-33.0); Mean Corpuscular Volume 78.4 fL (80.0-98.0); Mean Platelet Volume 8.2 fL (9.4-12.3); Monocytes Absolute Auto 0.7 X10*3/uL (0.1-1.2); Monocytes Percent Auto 9.5 % (2-11); Neutrophils Absolute Auto 5.9 x10*3/uL (2.0-8.3); Neutrophils Percent Auto 80.8 % (45-73); Platelet Count 199 X10*3/uL (160-400); Red Cell Distribution Width 26.2 % (11.0-16.0); White Blood Count 7.3 X10*3/uL (4.8-10.8)
[2023-03-03] MEDS: 0.9 % Sodium Chloride 1,000 ML 999 ML IV ×3 (00:18→05:35)
[2023-03-03 00:22] LABS: Venous Blood Gas Refer to POC result
--- NOTE | 2023-03-03 00:30 | PC.NURSE ---
this rn and additional rn able to place 22 g iv in R hand. flushed with some resistance. IVF infusing.
[2023-03-03 00:50] LABS: Troponin-I High Sensitivity < 2.7 ng/L (<3.5-17.0)
--- NOTE | 2023-03-03 00:58 | MHC.EDTECH ---
t/w dhiraj labs on pt with 4x assist from pct bryce , pct krissy, and rn michael. pt hard stick and moving during lab draw. t/w recollected cbc via fingerstick. only able to obtain 1 set of blood cultures. martha jones aware
--- NOTE | 2023-03-03 01:40 | PC.NURSE ---
this rn, additional rn, vice president education, and karen thomas at bedside to place straight catheter per karen thomas order. pt agitated. awoke at this time. once urine was obtained straight catheter removed urine sample sent down to lab. pt boosted in bed. this rn and vice president education had difficulty getting bp reading. karen thomas to bedside. able to get reading. pt noted by this rn and karen thomas to have wet breathing. orders placed for additional imaging
[2023-03-03 01:48] LABS: Amphetamine Screen Urine Not Detected (Not Detect); Barbiturates, Urine Not Detected (Not Detect); Benzodiazepines Screen Urine POSITIVE (Not Detect); Cannabinoid Screen Urine POSITIVE (Not Detect); Cocaine Screen Urine Not Detected (Not Detect); Fentanyl, urine POSITIVE (Not Detect); Opiate Screen Urine Not Detected (Not Detect); Phencyclidine Screen Urine Not Detected (Not Detect)
[2023-03-03] MEDS: cefTRIAXone sodium 1 GM in 0.9 % Sodium Chloride 50 ML IV (02:24)
[2023-03-03 02:40] LABS: Anion Gap 17 (12-20); Blood Urea Nitrogen 19 mg/dL (9-16); Calcium 8.7 mg/dL (8.4-10.2); Carbon Dioxide 19 mmol/L (22-29); Chloride 96 mmol/L (96-108); Creatinine Clr Calc Pharmacy 37.2; Estimated Glomerular Filt Rate 37; Glucose Random 113 mg/dL (60-115); Potassium 5.6 mmol/L (3.3-5.1); Sodium 126 mmol/L (135-145)
[2023-03-03] MEDS: Enoxaparin Sodium 40 MG/0.4 ML SYRINGE SUBCUT (03:20)
[2023-03-03] MEDS: LORazepam 2 MG/ML VIAL 1 MG IVPUSH ×2 (03:48→19:22)
[2023-03-03 03:54] LABS: Appearance Urine Clear; Color Urine Yellow; Glucose Urine UA Negative (Negative); Leukocyte Esterase Urine Small (1+) (Negative); Nitrite Urine Positive (Negative); Specific Gravity - Urine 1.015 (1.005-1.025); UMIC TRIGGER UACC YES; Urine Blood Moderate (2+) (Negative); Urine Ketones Trace mg/dL (Negative); Urine Protein 30 (1+) mg/dL (Neg-Trace)
[2023-03-03 04:05] LABS: Bacteria Urine 4+ (None Seen); UACC Culture Trigger YES
[2023-03-03] MEDS: LORazepam 2 MG/ML VIAL 1 MG IM (04:05)
[2023-03-03] MEDS: Haloperidol Lactate 5 MG/ML VIAL IM (04:05)
--- NOTE | 2023-03-03 04:07 | PM.IMHP ---
History of Present Illness Date of Service: 03/03/23 Chief Complaint: Altered mentation This is a 67-year-old female with pertinent history of alcohol use disorder, cannabis use disorder, fentanyl use disorder who was brought to the emergency department by for evaluation of altered mentation. As per the , patient was found at home on the ground. Patient was altered, could not speak and could not follow any commands. Unknown down time. Unable to obtained history of review of systems from the patient. History obtained from ER provider and chart review Review of Systems Review of Systems: Yes Unobtainable due to mental status [facility] Medical History Acute hyponatremia Acute hyponatremia Alcohol use disorder Bipolar 1 disorder Bipolar I disorder Cannabis use disorder, moderate, dependence Chronic hyponatremia Congestive heart failure COPD (chronic obstructive pulmonary disease) Coronary artery disease Dementia Diabetes Effusion of shoulder joint, left Family history of breast cancer Hypertension Korsakoff disease Mass of joint of left shoulder Osteoarthritis Schizophrenia Shortness of breath Sleep apnea Family History Sister Breast cancer, Onset Age: 40 Sister Breast cancer, Onset Age: 50 Surgical History Hx of appendectomy Social History Household Members: Spouse Housing: Apartment Do you presently have visiting nurse or other home services: Yes Unable to assess alcohol history related to: Unknown Alcohol intake: current Alcohol intake frequency: 0-2 drinks per day Alcohol type: beer Patient Tobacco Use Status: Current everyday Tobacco user Tobacco use type: Cigarette Cigarettes Per Day: 5 Years Smoked: 53 e-Cigarette/Vaping Use: Never Used Second Hand Smoke Exposure: Yes Substance Use Type: Marijuana Advance Directives: Yes Advance Directives on File: Yes Advance Directives Date on File: 10/10/20 service: No Current occupational status: unemployed, disabled and other Sexual orientation: Straight/Heterosexual Meds Allergies Allergy/AdvReac Type Severity Reaction Status Date / Time fluticasone Allergy Unknown Verified 11/25/22 17:15 [From Advair Diskus] salmeterol Allergy Unknown Verified 11/25/22 17:15 [From Advair Diskus] paroxetine [From Paxil] AdvReac Intermediate Nausea and Verified 11/25/22 17:15 Vomiting Active Medications: Current Medications Acetaminophen (Acetaminophen Supp 650 Mg Supp.Rect) 650 mg VA Q6H PRN PRN Reason: Pain, Mild (Pain Scale 1-3) Acetaminophen (Acetaminophen 325 Mg Tablet) 650 mg PO Q6H PRN PRN Reason: Pain, Mild (Pain Scale 1-3) Enoxaparin Sodium (Enoxaparin Sodium 40 Mg/0.4 Ml Syringe) 40 mg SUBCUT Q24H [facility] Last Admin: 03/03/23 03:20 Dose: 40 mg Lorazepam (Lorazepam 2 Mg/Ml Vial) 1 mg IM STAT STA Stop: 03/03/23 04:02 Melatonin (Melatonin 3 Mg Tablet) 6 mg PO BEDTIME PRN PRN Reason: Insomnia Ondansetron HCl (Ondansetron Hcl 4 Mg/2 Ml Vial) 4 mg IVPUSH Q8H PRN PRN Reason: Nausea and Vomiting Pharmacy Consult (Consult Rx Perform Med Rec) 1 each MISCELLANE ONCE PRN PRN Reason: Consult order Pharmacy Consult (Consult Rx Etoh Phenob Im/Po) 1 each MISCELLANE ONCE PRN; Protocol PRN Reason: Consult order Sodium Chloride (0.9 % Sodium Chloride Flush 3 Ml Syringe) 3 ml IVFLUSH QSHIFT [facility] Home Medications Medication Instructions Recorded Confirmed Last Taken Type quetiapine 50 mg tablet 50 mg PO TID 07/26/22 01/31/23 Unknown History albuterol sulfate 90 mcg/actuation 2 puff inhalation Q4-6H PRN 11/26/22 01/31/23 Unknown History aerosol inhaler (Ventolin HFA) Shortness Of Breath Or Wheezing aspirin 81 mg tablet,delayed 1 tab PO BEDTIME 11/26/22 01/31/23 Unknown History release folic acid 1 mg tablet 1 mg PO DAILY 11/26/22 01/31/23 Unknown History metoprolol succinate 25 mg 1 tab PO DAILY 11/26/22 01/31/23 Unknown History tablet,extended release 24 hr montelukast 10 mg tablet 1 tab PO BEDTIME 11/26/22 01/31/23 Unknown History omeprazole 40 mg capsule,delayed 1 cap PO DAILY@0630 11/26/22 01/31/23 Unknown History release pravastatin 20 mg tablet 1 tab PO BEDTIME 11/26/22 01/31/23 Unknown History thiamine HCl (vitamin B1) 100 mg 1 tab PO DAILY 11/26/22 01/31/23 Unknown History tablet trazodone 50 mg tablet 1 tab PO BEDTIME PRN insomnia 11/26/22 01/31/23 Unknown History ferrous sulfate 325 mg (65 mg 325 mg PO QAM 01/31/23 01/31/23 Unknown History iron) tablet (FeroSul) fluticasone 250 mcg-salmeterol 50 1 ea inhalation BID 01/31/23 01/31/23 Unknown History mcg/dose blistr powdr for inhalation (Advair Diskus) ondansetron HCl 4 mg tablet 4 mg PO BID PRN nausea 01/31/23 01/31/23 Unknown History sennosides 8.6 mg tablet (senna) 8.6 mg PO BID PRN constipation 01/31/23 01/31/23 Unknown History Physical Exam Vital Signs and Narrative: Vital Signs: Last Vital Signs Temp 98.8 F 03/02/23 23:44 Pulse 97 03/03/23 01:33 Resp 29 H 03/03/23 01:33 BP 199/87 H 03/03/23 01:33 Pulse Ox 98 03/03/23 01:33 O2 Del Method Room Air 03/03/23 01:33 BMI result Body Mass Index 32.9 Middle-aged female lying in bed in no distress Neck supple, no JVD Regular rate and rhythm, S1-S2 heard Regular breath sounds bilaterally, no wheezing or crackles appreciated Abdomen soft nontender, no guarding, no rigidity Patient is only eye opening to painful stimulus Results Labs 03/03/23 00:08 03/03/23 02:15 Labs: Laboratory Results - last 24 hr 03/02/23 03/02/23 03/02/23 21:25 21:28 23:36 MCV MCH MCHC RDW Plt Count MPV Immature Gran % (Auto) Neut % (Auto) Lymph % (Auto) [place] % (Auto) Eos % (Auto) Baso % (Auto) Lymph # (Auto) [place] # (Auto) Eos # (Auto) Baso # (Auto) Abs Immat Gran (auto) Absolute Neuts (auto) Absolute Nucleated RBC Nucleated RBC % (auto) PT INR VBG pH VBG pCO2 VBG pO2 VBG HCO3 VBG O2 Saturation VBG Base Excess Anion Gap 19 Estim Creat Clear Calc 37.5 Estimated GFR 37 POC Glucose 160 H Random Glucose 118 H Lactic Acid Calcium 9.0 Magnesium 2.2 Total Bilirubin 0.7 AST 30 ALT 12 Alkaline Phosphatase 113 Ammonia Total Creatine Kinase 80 Troponin I High Sens Total Protein 7.5 Albumin 3.7 Urine Color Urine Appearance Urine pH Ur Specific [place] Urine Protein Urine Glucose (UA) Urine Ketones Urine Blood Urine Nitrite Ur Leukocyte Esterase Urine RBC Urine WBC Ur Squamous Epith Cells Urine Bacteria Hyaline Casts Urine Opiates Screen Urine Fentanyl Screen Ur Barbiturates Screen Ur Phencyclidine Scrn Ur Amphetamines Screen U Benzodiazepines Scrn Urine Cocaine Screen U Marijuana (THC) Screen Ethyl Alcohol < 10 COVID-19 (ZAKIA) Negative COVID-19 [employer] Com See Note 03/02/23 03/02/23 03/02/23 23:36 23:36 23:36 MCV MCH MCHC RDW Plt Count MPV Immature Gran % (Auto) Neut % (Auto) Lymph % (Auto) [place] % (Auto) Eos % (Auto) Baso % (Auto) Lymph # (Auto) [place] # (Auto) Eos # (Auto) Baso # (Auto) Abs Immat Gran (auto) Absolute Neuts (auto) Absolute Nucleated RBC Nucleated RBC % (auto) PT 9.9 L INR 0.9 VBG pH VBG pCO2 VBG pO2 VBG HCO3 VBG O2 Saturation VBG Base Excess Anion Gap Estim Creat Clear Calc Estimated GFR POC Glucose Random Glucose Lactic Acid 2.0 Calcium Magnesium Total Bilirubin AST ALT Alkaline Phosphatase Ammonia Total Creatine Kinase Troponin I High Sens < 2.7 Total Protein Albumin Urine Color Urine Appearance Urine pH Ur Specific [place] Urine Protein Urine Glucose (UA) Urine Ketones Urine Blood Urine Nitrite Ur Leukocyte Esterase Urine RBC Urine WBC Ur Squamous Epith Cells Urine Bacteria Hyaline Casts Urine Opiates Screen Urine Fentanyl Screen Ur Barbiturates Screen Ur Phencyclidine Scrn Ur Amphetamines Screen U Benzodiazepines Scrn Urine Cocaine Screen U Marijuana (THC) Screen Ethyl Alcohol COVID-19 (ZAKIA) COVID-19 Clin Com 03/02/23 03/02/23 03/03/23 23:36 23:39 00:08 MCV 78.4 L MCH 25.5 L MCHC 32.6 RDW 26.2 H Plt Count 199 D MPV 8.2 L Immature Gran % (Auto) 2.9 H Neut % (Auto) 80.8 H Lymph % (Auto) 6.6 L [place] % (Auto) 9.5 Eos % (Auto) 0.1 Baso % (Auto) 0.1 Lymph # (Auto) 0.5 L [place] # (Auto) 0.7 Eos # (Auto) 0.0 Baso # (Auto) 0.0 Abs Immat Gran (auto) 0.21 H Absolute Neuts (auto) 5.9 Absolute Nucleated RBC 0.000 Nucleated RBC % (auto) 0.0 PT INR VBG pH 7.48 H VBG pCO2 28 VBG pO2 63 VBG HCO3 21 L VBG O2 Saturation 96.0 VBG Base Excess -0.9 Anion Gap Estim Creat Clear Calc Estimated GFR POC Glucose Random Glucose Lactic Acid Calcium Magnesium Total Bilirubin AST ALT Alkaline Phosphatase Ammonia 41 Total Creatine Kinase Troponin I High Sens Total Protein Albumin Urine Color Urine Appearance Urine pH Ur Specific [place] Urine Protein Urine Glucose (UA) Urine Ketones Urine Blood Urine Nitrite Ur Leukocyte Esterase Urine RBC Urine WBC Ur Squamous Epith Cells Urine Bacteria Hyaline Casts Urine Opiates Screen Urine Fentanyl Screen Ur Barbiturates Screen Ur Phencyclidine Scrn Ur Amphetamines Screen U Benzodiazepines Scrn Urine Cocaine Screen U Marijuana (THC) Screen Ethyl Alcohol COVID-19 (ZAKIA) COVID-19 Clin Com 03/03/23 03/03/23 03/03/23 00:22 01:27 01:27 MCV MCH MCHC RDW Plt Count MPV Immature Gran % (Auto) Neut % (Auto) Lymph % (Auto) [place] % (Auto) Eos % (Auto) Baso % (Auto) Lymph # (Auto) [place] # (Auto) Eos # (Auto) Baso # (Auto) Abs Immat Gran (auto) Absolute Neuts (auto) Absolute Nucleated RBC Nucleated RBC % (auto) PT INR VBG pH VBG pCO2 VBG pO2 VBG HCO3 VBG O2 Saturation VBG Base Excess Anion Gap Estim Creat Clear Calc Estimated GFR POC Glucose Random Glucose Lactic Acid Calcium Magnesium Total Bilirubin AST ALT Alkaline Phosphatase Ammonia Total Creatine Kinase Troponin I High Sens < 2.7 Total Protein Albumin Urine Color Yellow Urine Appearance Clear Urine pH 5.0 Ur Specific [place] 1.015 Urine Protein 30 (1+) H Urine Glucose (UA) Negative Urine Ketones Trace Urine Blood Moderate (2+) H Urine Nitrite Positive H Ur Leukocyte Esterase Small (1+) H Urine RBC 3-5 H Urine WBC 6-10 H Ur Squamous Epith Cells 3-5 Urine Bacteria 4+ Hyaline Casts 3-5 Urine Opiates Screen Not Detected Urine Fentanyl Screen POSITIVE H Ur Barbiturates Screen Not Detected Ur Phencyclidine Scrn Not Detected Ur Amphetamines Screen Not Detected U Benzodiazepines Scrn POSITIVE H Urine Cocaine Screen Not Detected U Marijuana (THC) Screen POSITIVE H Ethyl Alcohol COVID-19 (ZAKIA) COVID-19 Clin Com 03/03/23 02:15 MCV MCH MCHC RDW Plt Count MPV Immature Gran % (Auto) Neut % (Auto) Lymph % (Auto) [place] % (Auto) Eos % (Auto) Baso % (Auto) Lymph # (Auto) [place] # (Auto) Eos # (Auto) Baso # (Auto) Abs Immat Gran (auto) Absolute Neuts (auto) Absolute Nucleated RBC Nucleated RBC % (auto) PT INR VBG pH VBG pCO2 VBG pO2 VBG HCO3 VBG O2 Saturation VBG Base Excess Anion Gap 17 Estim Creat Clear Calc 37.2 Estimated GFR 37 POC Glucose Random Glucose 113 Lactic Acid Calcium 8.7 Magnesium Total Bilirubin AST ALT Alkaline Phosphatase Ammonia Total Creatine Kinase Troponin I High Sens Total Protein Albumin Urine Color Urine Appearance Urine pH Ur Specific [place] Urine Protein Urine Glucose (UA) Urine Ketones Urine Blood Urine Nitrite Ur Leukocyte Esterase Urine RBC Urine WBC Ur Squamous Epith Cells Urine Bacteria Hyaline Casts Urine Opiates Screen Urine Fentanyl Screen Ur Barbiturates Screen Ur Phencyclidine Scrn Ur Amphetamines Screen U Benzodiazepines Scrn Urine Cocaine Screen U Marijuana (THC) Screen Ethyl Alcohol COVID-19 (ZAKIA) COVID-19 Clin Com Imaging Radiologist's Impressions: Impressions Cervical Spine CT 03/02/23 21:38 IMPRESSION: No acute intracranial pathology. There is no significant interim change. Of note, imaging is significantly limited by motion artifact. EXAMINATION: CT CERVICAL SPINE WITHOUT CONTRAST CLINICAL INFORMATION: Neck pain status-post fall. COMPARISON: CT cervical spine dated 03/01/2023. TECHNIQUE: Without the addition of intravenous contrast, multiple contiguous multidetector This CT examination was performed using dose optimization techniques as appropriate, variously including the following: *Automated exposure control *Adjustment of mA and/or kV according to patient size (this includes techniques or standardized protocols for targeted exams where dose is matched to indication/reason for exam; i.e. extremities or head) *Use of iterative reconstruction technique DLP: As above. FINDINGS: Vertebral body heights are normal. There is multi-level cervical degenerative disc disease and spondylosis, most pronounced extending from C3-C4 through C7-T1, where it is marked. No acute fracture or spondylolisthesis is seen. The posterior elements are intact. There is multi-level cervical facet arthropathy. The dens is intact. No prevertebral soft tissue swelling is seen. The bilateral lung apices appear clear. IMPRESSION: Again, there are multi-level marked degenerative changes of the cervical spine. No acute fracture or spondylolisthesis is seen. Fleischner guidelines were followed. Head CT 03/02/23 21:38 IMPRESSION: No acute intracranial pathology. There is no significant interim change. Of note, imaging is significantly limited by motion artifact. EXAMINATION: CT CERVICAL SPINE WITHOUT CONTRAST CLINICAL INFORMATION: Neck pain status-post fall. COMPARISON: CT cervical spine dated 03/01/2023. TECHNIQUE: Without the addition of intravenous contrast, multiple contiguous multidetector This CT examination was performed using dose optimization techniques as appropriate, variously including the following: *Automated exposure control *Adjustment of mA and/or kV according to patient size (this includes techniques or standardized protocols for targeted exams where dose is matched to indication/reason for exam; i.e. extremities or head) *Use of iterative reconstruction technique DLP: As above. FINDINGS: Vertebral body heights are normal. There is multi-level cervical degenerative disc disease and spondylosis, most pronounced extending from C3-C4 through C7-T1, where it is marked. No acute fracture or spondylolisthesis is seen. The posterior elements are intact. There is multi-level cervical facet arthropathy. The dens is intact. No prevertebral soft tissue swelling is seen. The bilateral lung apices appear clear. IMPRESSION: Again, there are multi-level marked degenerative changes of the cervical spine. No acute fracture or spondylolisthesis is seen. Fleischner guidelines were followed. Assessment and Plan (1) AMS (altered mental status): Status: Acute Plan This is a 67-year-old female with pertinent history of alcohol use disorder, cannabis use disorder, fentanyl use disorder who was brought to the emergency department by for evaluation of altered mentation. #. Acute toxic encephalopathy. UDS positive for fentanyl, benzos and marijuana. Resuscitating with IV crystalloids. Consulting addiction medicine. Monitor for withdrawal #. Alcohol use disorder. Initiating phenobarb protocol. Monitor CIWA. Initiating thiamine #. Acute UTI. Initiating IV Rocephin. Follow urine culture #. Hyponatremia, likely hypovolemic. Monitor sodium with fluid resuscitation #. Acute kidney injury, stage I. Monitor creatinine and fluid output with fluid resuscitation. Avoid nephrotoxins. #. Chronic anemia. Obtaining iron panel, vitamin-D B12 and folate #. Bipolar disorder/schizophrenia. Resume p.o. medications once able to take p.o. #. Essential hypertension. Continue home antihypertensives #. COPD. No exacerbation on admission. Continue home inhalers Med rec pending DVT prophylaxis: Lovenox Full code NPO until mentation improves Admit as inpatient and will require two night minimum hospital stay for close monitoring of mentation and IV antibiotics Time Spent With Patient Time: Total time managing care of this patient today ____ minutes. Quality Stroke Does the patient have a stroke diagnosis?: No VTE Prior VTE?: No VTE Risk Level:: Medical - moderate - high VTE Device Contraindication: Treatment Not Indicated VTE Drug Contraindication: N/A - Med Ordered
[2023-03-03] MEDS: Thiamine HCL 100 MG in 0.9 % Sodium Chloride 100 ML 202 MG IV ×2 (04:40→08:15)
[2023-03-03] MEDS: PHENobarbitaL sodium 130 MG/ML IM ONCE 240 MG IM (04:41)
[2023-03-03 04:50] LABS: Iron 83 mcg/dL (30-160); Percent Iron Saturation 27 % (15-50); Total Iron Binding Capacity 304 mcg/dL (228-428); Unsaturated Iron Binding 221 ug/dL
--- NOTE | 2023-03-03 04:54 | PC.NURSE ---
late entry- integration solution architect brought pt down to ct for scan according to order. pt awoke at this time. pt noncompliant with care and scan. pt pulling at iv and monitor. pt unsafe thrashing body while on ct table. pt unable to follow commands. pt brought back to room without being able to be scanned. pt yelling agitated and combative at this time. security, charger operator helper, hospitalist, registered land surveyor, and this rn to bedside. per dr mcghee pt given ativan IVP. due to pt thrashing movements iv removed from placement. @ 0405 dr chambers at which time placed orders for haldol 5mg IM and ativan 1mg IM. pt continued agitated, extremely restless behavior. pt noted at this time to be producing increased sputum and saliva. registered land surveyor performed bedside suction with little result. At this alexei RT called to bedside for assistance with deep suctioning. iv able to be replaced by charger operator helper
[2023-03-03 05:17] LABS: Folate > 20.0 ng/mL (> or = 4.0); Vitamin B12 354 pg/mL (200-900)
[2023-03-03 06:26] LABS: Basophils Percent Auto 0.2 % (0-2); Eosinophils Percent Auto 0.1 % (0-4); Hematocrit 30.3 % (37.0-47.0); Hemoglobin 9.8 g/dl (12.0-16.0); Imm Gran Abs Auto 0.28 X10*3/uL (0.00-0.03); Imm Gran Pct Auto 2.9 % (0.0-0.4); Lymphocytes Absolute Auto 0.8 X10*3/uL (1.2-4.9); Lymphocytes Percent Auto 8.7 % (20-40); MANUAL DIFF FLAG SCAN; Mean Corpuscular HGB Conc 32.3 g/dl (31.0-35.0); Mean Corpuscular Hemoglobin 25.8 pg (27.0-33.0); Mean Corpuscular Volume 79.7 fL (80.0-98.0); Mean Platelet Volume 8.6 fL (9.4-12.3); Monocytes Percent Auto 21.2 % (2-11); Neutrophils Absolute Auto 6.4 x10*3/uL (2.0-8.3); Neutrophils Percent Auto 66.9 % (45-73); Platelet Count 180 X10*3/uL (160-400); Red Cell Distribution Width 26.6 % (11.0-16.0); SCAN SMEAR FLAG 1; White Blood Count 9.6 X10*3/uL (4.8-10.8)
--- NOTE | 2023-03-03 06:34 | PC.NURSE ---
pt medicated according to mar. seizure pads remain in place for pt safety due to previous episodes of thrashing body in stretcher. pt sleeping on back.
[2023-03-03 06:36] LABS: Anion Gap 15 (12-20); Blood Urea Nitrogen 18 mg/dL (9-16); Calcium 8.2 mg/dL (8.4-10.2); Carbon Dioxide 19 mmol/L (22-29); Chloride 97 mmol/L (96-108); Creatinine Clr Calc Pharmacy 43.4; Estimated Glomerular Filt Rate 44; Glucose Random 99 mg/dL (60-115); Potassium 5.2 mmol/L (3.3-5.1); Sodium 126 mmol/L (135-145)
[2023-03-03] MEDS: PHENobarbitaL sodium 130 MG/ML VIAL IM Q3Hx2 180 MG IM ×2 (07:23→11:47)
--- NOTE | 2023-03-03 08:11 | PC.RT ---
pt was lethargic but arousable this am. Placed on nasal cannula ETC02 and Etc02 was 34. Sats 94%. Pt oral suctioned with yankauer for white secretions. no resp distress noted
[2023-03-03 09:09] LABS: SLIDE REVIEW VERIFIED
[2023-03-03] MEDS: 0.9 % Sodium Chloride 1,000 ML 125 ML IVCONT (09:55)
--- NOTE | 2023-03-03 11:01 | PM.EVENT ---
Event Note Date of Service: 03/03/23 Event Note: S Pt still somnolent but in no respiratory distress. Unable to obtain ROS O VS- T 97.4, BP 147/67, P 105, R 21, SaO2 91 on RA gen- NAD, somnolent HEENT- no icterus neck- supple lungs- CTAB CV- RRR no m/r/g abd- soft/obese ext- no edema neuro- unable to assess orientation psych- impaired insight labs- Na 126, K 5.2, Cr 1.21 A/P d#1 67yo F with polysubstace abuse disorder brought in by for AMS, found at home on the ground, unknown down time. Given naloxone in ED, then given haloperidol, midazolam, and diphenhydramine for agitated delirium # toxic-metabolic encephalopathy # polysubstance abuse - Utox positive for fentanyl, benzodiazepines, and THC. Addiction Medicine consultation. HBV/HCV/HIV screening. # AUD with high risk for withdrawal - phenobarbital taper, thiamine, folate, multivitamin # UTI - ceftriaxone d#1, follow UCx # hypoNa - likely hypovolemic. continue IV NS, check FENa # SAGAR, prerenal - resolved # chronic anemia - monitor H+H # schizoaffective disorder - hold quetiapine for now, may benefit from psychiatry consult when more awake # HTN - metoprolol tartrate # COPD without acute exacerbation - Breo, prn bronchodilators # VTE ppx: LMWH # dispo: TBD In my clinical judgment, the patient requires continued inpatient hospitalization for the following reasons: encephalopathy Time Spent With Patient Time: Total time managing care of this patient today ____ minutes.
[2023-03-03 14:39] LABS: Sodium 134 mmol/L (135-145)
[2023-03-03 14:53] LABS: ABG Base Excess -4.2 mmol/L; ABG HCO3 21 mmol/L (22-26); ABG pCO2 39 mmHg (32-45); ABG pH 7.33 (7.35-7.45); ABG pO2 61 mmHg (83-108)
--- NOTE | 2023-03-03 15:07 | MHC.CM.PN ---
Attempted to meet with patient in regards to discharge planning. Patient is drowsy and has invoked HCP d/t dementia. Patient is well-known to case management. Patient lives with sig other/HCP, Juanjo, is active with [facility] for [facility] and [facility] for [facility] hours. PCP verified. Copy of invoked HCP verified to be on file. Patient has been to multiple halfway facilities in the past. Juanjo has signed patient out from facilities which is why patient has been difficult to place. Patient has received 2 Moderna vaccines. No boosters. Patient now has [facility] for insurance. Juanjo doesn't feel patient can safely return home due to dementia symptoms. Juanjo aware referral will have to be broadcasted to see which facility would be able to offer a bed. [facility]jo [facility] placement will not be available locally. Referral sent in [facility] to all facilities within 50 miles that are contracted with [facility]. IMM explained and sent to Juanjo via certified mail. Continue to monitor for d/c needs.
--- NOTE | 2023-03-03 16:25 | PM.EVENT ---
Event Note Date of Service: 03/03/23 Event Note: Addiction consult placed Chart reviewed, patient somnolent and difficult to rouse Will follow up tmrw Time Spent With Patient Time: Total time managing care of this patient today ____ minutes.
--- NOTE | 2023-03-03 18:00 | PC.NURSE ---
Inpatient MD notified of pt being awake, restless, yelling and gurgling sounding.
--- NOTE | 2023-03-03 18:19 | PM.EVENT ---
Event Note Date of Service: 03/03/23 Event Note: came to see patient for increased agitation, no longer obtunded agitated, confused, delerious, tachy, sats in low 90s, diffuse wheezing. Time Spent With Patient Time: Total time managing care of this patient today ____ minutes.
--- NOTE | 2023-03-03 18:34 | MHC.EDTECH ---
Pt agitated and screaming in bed. Purewick was displaced due pt's agitation. Tw and RN changed pt over, fresh linen and hospital attire given.
[2023-03-03] MEDS: methylPREDNISolone Sod Succ 40 MG/ML VIAL IVPUSH (18:43)
[2023-03-03] MEDS: Furosemide 100 MG/10 ML VIAL 60 MG IVPUSH (18:43)
[2023-03-03] MEDS: PHENobarbitaL sodium 130 MG/ML VIAL IM (18:43)
--- NOTE | 2023-03-03 19:24 | PC.NURSE ---
assumed care of pt art 1900 - pt presents with increased agitation , hollering and screaming, confused. per MD Najera pt is actively withdrawing from alcohol and ordered 1mg ativan stat iv push. administered per nov. pt now resting comfortably in no apparent distress no harm to self, on director of compliance. respirations even and unlabored. will CTM
[2023-03-03] MEDS: Albuterol/Iprat 2.5/0.5MG 3 ML AMPUL.NEB INHALE (19:31)
--- NOTE | 2023-03-03 19:50 | PC.NURSE ---
pt asleep comfortably on stretcher respirations even and unlabored, breathing treatment administered by RT, nurse to nurse report called to Delmy KIRK @[phone]. pt to go to [facility] bed [phone]
[2023-03-03] MEDS: 0.9 % Sodium Chloride Flush 3 ML SYRINGE IVFLUSH (22:04)
[2023-03-03 23:42] LABS: ABG Refer to POC result
[2023-03-04] VITALS (8 sets, daily range): BP systolic 160–189; BP diastolic 81–90; PULSE 82–132; RESP 16–25; TEMP 36.1–37.7; O2SAT 94–100; BMI 32.9
[2023-03-04] MEDS: Enoxaparin Sodium 40 MG/0.4 ML SYRINGE SUBCUT (01:02)
[2023-03-04] MEDS: LORazepam 2 MG/ML VIAL IVPUSH (01:02)
[2023-03-04] MEDS: cefTRIAXone sodium 1 GM in 0.9 % Sodium Chloride 50 ML IV (01:04)
[2023-03-04] MEDS: LORazepam 2 MG/ML VIAL 1 MG IVPUSH (04:18)
--- NOTE | 2023-03-04 07:22 | PHA.MEDREC ---
Pharmacy Consult ? Medication Reconciliation Pharmacy has completed the medication reconciliation. Completed by Ana Lilia Craig
[2023-03-04 08:03] LABS: Hematocrit 31.9 % (37.0-47.0); Mean Corpuscular HGB Conc 31.3 g/dl (31.0-35.0); Mean Corpuscular Hemoglobin 25.9 pg (27.0-33.0); Mean Corpuscular Volume 82.6 fL (80.0-98.0); Mean Platelet Volume 8.7 fL (9.4-12.3); Platelet Count 229 X10*3/uL (160-400); Red Blood Count 3.86 X10*6/uL (4.20-5.50); Red Cell Distribution Width 27.7 % (11.0-16.0); White Blood Count 6.1 X10*3/uL (4.8-10.8)
[2023-03-04 08:18] LABS: Alanine Aminotransferase 9 U/L (0-31); Albumin Level 3.5 g/dL (3.5-5.0); Alkaline Phosphatase 105 U/L (39-117); Anion Gap 20 (12-20); Aspartate Amino Transferase 17 U/L (5-31); Bilirubin Total 0.5 mg/dL (0.0-1.0); Blood Urea Nitrogen 15 mg/dL (9-16); Calcium 8.9 mg/dL (8.4-10.2); Carbon Dioxide 19 mmol/L (22-29); Chloride 105 mmol/L (96-108); Creatinine Clr Calc Pharmacy 48.2; Estimated Glomerular Filt Rate 50; Glucose Random 124 mg/dL (60-115); Potassium 4.5 mmol/L (3.3-5.1); Sodium 139 mmol/L (135-145); Total Protein 6.6 g/dL (6.5-8.0)
[2023-03-04] MEDS: Thiamine HCL 100 MG TABLET PO (08:50)
[2023-03-04] MEDS: Folic Acid 1 MG TABLET PO (08:50)
[2023-03-04] MEDS: Multivitamin TABLET 1 TAB PO (08:50)
[2023-03-04] MEDS: PHENobarbitaL 15 MG TABLET 45 MG PO ×2 (08:50→20:06)
[2023-03-04] MEDS: Ferrous Sulfate 324 MG TABLET.DR PO (08:50)
[2023-03-04] MEDS: Metoprolol Succinate ER 25 MG TAB.ER.24H PO (08:50)
[2023-03-04] MEDS: methylPREDNISolone Sod Succ 40 MG/ML VIAL IVPUSH ×3 (08:55→18:06)
[2023-03-04] MEDS: Furosemide 40 MG/4 ML VIAL IVPUSH ×2 (08:55→18:06)
[2023-03-04] MEDS: 0.9 % Sodium Chloride Flush 3 ML SYRINGE IVFLUSH ×3 (08:56→20:15)
[2023-03-04] MEDS: Thiamine HCL 100 MG in 0.9 % Sodium Chloride 100 ML 202 MG IV (08:56)
[2023-03-04 09:04] LABS: B Type Natriuretic Peptide 391 pg/mL (<100)
--- NOTE | 2023-03-04 11:21 | P.PNIM_ITS ---
Subjective Subjective Date of Service: 03/04/23 Interval History: seen and examined this morning awakens to verbal stimuli but frequently falls back to sleep. unable to provide any significant history Physical Exam Vital Signs: Vital Signs: Last Vital Signs Temp 99.9 F 03/04/23 07:47 Pulse 132 H 03/04/23 07:47 Resp 25 H 03/04/23 07:47 BP 160/90 H 03/04/23 07:47 Pulse Ox 97 03/04/23 07:47 O2 Del Method Room Air 03/04/23 07:47 BMI result Body Mass Index 32.9 Const: Other: awake but sleepy. able to answer some basic questions, but falls back asleep. Nutritional Appearance: overweight Resp: Other: increased respiratory effort b/l wheezing Cardio: Rate: tachycardic GI: Other: belly soft, appears non-tender, non-distended, no rebound +BS Neuro: Other: confused. unable to assess orientation, knows name. moving all extremities. no focal deficits appreciated Extrem: General: Yes no pedal edema Objective Data Active Medications Acetaminophen (Acetaminophen Supp 650 Mg Supp.Rect) 650 mg VT Q6H PRN PRN Reason: Pain, Mild (Pain Scale 1-3) Acetaminophen (Acetaminophen 325 Mg Tablet) 650 mg PO Q6H PRN PRN Reason: Pain, Mild (Pain Scale 1-3) Albuterol Sulfate (Albuterol Sulfate 90 Mcg 8 Gm Inhaler) 2 puff INHALE Q4H PRN PRN Reason: Shortness Of Breath Or Wheezing Albuterol/Ipratropium (Albuterol/Iprat 2.5/0.5mg 3 Ml Ampul.Neb) 3 ml INHALE Q6H PRN PRN Reason: Shortness Of Breath Albuterol/Ipratropium (Albuterol/Iprat 2.5/0.5mg 3 Ml Ampul.Neb) 3 ml INHALE RQ4H WHILE AWAKE [facility] Last Admin: 03/04/23 07:37 Dose: Not Given Documented By: PARISH Non-Admin Reason: Patient Condition Contraindication Aspirin (Aspirin Enteric Coated 81 Mg Tablet.) 81 mg PO BEDTIME [facility] Last Admin: 03/03/23 22:01 Dose: Not Given Documented By: ROBERT Non-Admin Reason: Patient Condition Contraindication Enoxaparin Sodium (Enoxaparin Sodium 40 Mg/0.4 Ml Syringe) 40 mg SUBCUT Q24H [facility] Last Admin: 03/04/23 01:02 Dose: 40 mg Documented By: ROBERT Ferrous Sulfate (Ferrous Sulfate 324 Mg Tablet.Dr) 324 mg PO DAILY [facility] Last Admin: 03/04/23 08:50 Dose: 324 mg Documented By: SHEMAR Fluticasone/Vilanterol (Fluticasone/Vilanterol 100/25 Blst.W.Dev) 1 puff INHALE RDAILY [facility] Last Admin: 03/04/23 07:37 Dose: Not Given Documented By: PARISH Non-Admin Reason: Patient Condition Contraindication Folic Acid (Folic Acid 1 Mg Tablet) 1 mg PO DAILY [facility] Last Admin: 03/04/23 08:50 Dose: 1 mg Documented By: SHEMAR Furosemide (Furosemide 40 Mg/4 Ml Vial) 40 mg IVPUSH BID@0900,1800 [facility]; Protocol Last Admin: 03/04/23 08:55 Dose: 40 mg Documented By: SHEMAR Ceftriaxone Sodium 1 gm/ (Sodium Chloride) 50 mls @ 100 mls/hr IV Q24H [facility] Last Infusion: 03/04/23 01:45 Dose: 0 mls/hr Documented By: ROBERT Thiamine HCl 100 mg/ Sodium (Chloride) 101 mls @ 202 mls/hr IV DAILY [facility] Last Infusion: 03/04/23 09:27 Dose: 0 mls/hr Documented By: SHEMAR Melatonin (Melatonin 3 Mg Tablet) 6 mg PO BEDTIME PRN PRN Reason: Insomnia Methylprednisolone Sodium Succinate (Methylprednisolone Sod Succ 40 Mg/Ml Vial) 40 mg IVPUSH Q8H [facility] Metoprolol Succinate (Metoprolol Succinate Er 25 Mg Tab.Er.24h) 25 mg PO DAILY [facility]; Protocol Last Admin: 03/04/23 08:50 Dose: 25 mg Documented By: SHEMAR Montelukast Sodium (Montelukast Sodium 10 Mg Tablet) 10 mg PO BEDTIME [facility] Last Admin: 03/03/23 22:01 Dose: Not Given Documented By: ROBERT Non-Admin Reason: Patient Condition Contraindication Multivitamins/Vitamin C (Multivitamin Tablet) 1 tab PO DAILY [facility] Last Admin: 03/04/23 08:50 Dose: 1 tab Documented By: SHEMAR Omeprazole (Omeprazole 40 Mg Capsule.Dr) 40 mg PO DAILY@0630 [facility] Last Admin: 03/04/23 06:20 Dose: Not Given Documented By: ROBERT Non-Admin Reason: Patient Condition Contraindication Ondansetron HCl (Ondansetron Hcl 4 Mg/2 Ml Vial) 4 mg IVPUSH Q8H PRN PRN Reason: Nausea and Vomiting Pharmacy Consult (Consult Rx Perform Med Rec) 1 each MISCELLANE ONCE PRN PRN Reason: Consult order Pharmacy Consult (Consult Rx Etoh Phenob Im/Po) 1 each MISCELLANE ONCE PRN; Protocol PRN Reason: Consult order Phenobarbital (Phenobarbital 15 Mg Tablet) 45 mg PO BID [facility]; Protocol Stop: 03/05/23 09:01 Last Admin: 03/04/23 08:50 Dose: 45 mg Documented By: SHEMAR Phenobarbital (Phenobarbital 30 Mg Tablet) 30 mg PO BID [facility]; Protocol Stop: 03/07/23 09:01 Phenobarbital (Phenobarbital 30 Mg Tablet) 30 mg PO DAILY [facility]; Protocol Stop: 03/09/23 09:01 Pravastatin Sodium (Pravastatin Sodium 20 Mg Tablet) 20 mg PO BEDTIME [facility] Last Admin: 03/03/23 22:01 Dose: Not Given Documented By: ROBERT Non-Admin Reason: Patient Condition Contraindication Senna (Sennosides 8.6 Mg Tablet) 8.6 mg PO BID PRN PRN Reason: constipation Sodium Chloride (0.9 % Sodium Chloride Flush 3 Ml Syringe) 3 ml IVFLUSH QSHIFT [facility] Last Admin: 03/04/23 08:56 Dose: 3 ml Documented By: SHEMAR Thiamine HCl (Thiamine Hcl 100 Mg Tablet) 100 mg PO DAILY [facility] Last Admin: 03/04/23 08:50 Dose: 100 mg Documented By: SHEMAR Labs 03/04/23 07:32 03/04/23 07:32 Labs: Laboratory Results - last 24 hr 03/03/23 03/04/23 03/04/23 14:44 07:32 07:32 MCV 82.6 MCH 25.9 L MCHC 31.3 RDW 27.7 H Plt Count 229 D MPV 8.7 L Absolute Nucleated RBC 0.000 Nucleated RBC % (auto) 0.0 O2 Saturation 88.0 ABG pH at Pt Temp 7.33 L ABG pCO2 at Pt Temp 39 ABG pO2 at Pt Temp 61 L ABG HCO3 21 L ABG Base Excess (Actual) -4.2 Anion Gap 20 Estim Creat Clear Calc 48.2 Estimated GFR 50 Random Glucose 124 H Calcium 8.9 D Total Bilirubin 0.5 AST 17 ALT 9 Alkaline Phosphatase 105 B-Natriuretic Peptide Total Protein 6.6 Albumin 3.5 03/04/23 07:32 MCV MCH MCHC RDW Plt Count MPV Absolute Nucleated RBC Nucleated RBC % (auto) O2 Saturation ABG pH at Pt Temp ABG pCO2 at Pt Temp ABG pO2 at Pt Temp ABG HCO3 ABG Base Excess (Actual) Anion Gap Estim Creat Clear Calc Estimated GFR Random Glucose Calcium Total Bilirubin AST ALT Alkaline Phosphatase B-Natriuretic Peptide 391 H Total Protein Albumin Microbiology Microbiology Results: Microbiology 03/02/23 23:36 Blood Culture - Preliminary Blood - Venous No growth after 24 hours. 03/02/23 20:38 Blood Culture - Final Blood - Venous Assessment and Plan (1) Acute hyponatremia: Status: Acute (2) Encephalopathy: Status: Acute (3) Congestive heart failure: Status: Acute (4) Acute UTI: Status: Acute Plan This is a 67-year-old female with pertinent history of alcohol use disorder, cannabis use disorder, fentanyl use disorder who was brought to the emergency department by for evaluation of altered mentation. Acute toxic metabolic encephalopathy. UDS positive for fentanyl, benzos and marijuana, h/o etoh abuse Brain CT negative for acute intracranial pathology. no focal deficits appreciated renal function improving, LFTs/ammonia wnl received multiple doses of IV ativan overnight likely multifactorial related to withdrawal, sedating medication, UTI NPO until more consistently awake polysubstance use/alcohol use disorder continue phenobarbitol protocol Monitor CIWA continue IV thiamine addiction medicine following Acute CHF, unspecified initially received IVF resuscitation, started on IV lasix 6/7 BNP 391, CXR with central vascular prominence follow Is&Os ECHO pending - last echo from 09/2020 with preserved EF cardiology consult pending Acute COPD exacerbation increase dose of solu-medrol continue breathing treatments Acute UTI continue IV Rocephin Follow urine culture Hyponatremia resolved hyperkalemia resolved SAGAR resolved SCr seems to be at baseline Chronic microcytic anemia H/H stable B12, folate, iron profile wnl continue iron supplementation Bipolar disorder/schizophrenia hold seroquel for now Essential hypertension. Continue home metoprolol HLD continue statin DVT prophylaxis: Lovenox Full code NPO until mentation improves attending - dr. banda Requires ongoing inpatient hospitalization for close monitoring of mentation and IV antibiotics for UTI, alcohol withdrawal management Time Spent With Patient Time: Total time managing care of this patient today ____ minutes. Quality Stroke Does the patient have a stroke diagnosis?: No VTE Prior VTE?: No VTE Risk Level:: Medical - moderate - high VTE Device Contraindication: Treatment Not Indicated VTE Drug Contraindication: N/A - Med Ordered
[2023-03-04] MEDS: Albuterol/Iprat 2.5/0.5MG 3 ML AMPUL.NEB INHALE ×2 (11:41→20:38)
[2023-03-04] MEDS: Morphine Sulfate 2 MG/ML CARTRIDGE 1 MG IVPUSH (11:55)
--- NOTE | 2023-03-04 12:17 | HO.ADDICT_ITS ---
History of Present Illness Date of Service: 03/04/2023 Chief Complaint: AMS Reason for Consult: alcohol use +fentanyl UDS Sources of Information: patient interviewed (unable to interview patient ) and chart reviewed HPI Narrative: Patient is a 67 year old Czech speaking female with dementia--? korsakoff due to long history of alcohol use. Numerous ED visits and medical admissions realted to falls and altered mental status. Consult requested during this admission to due to ongoing alcohol use and + fentanyl screen in ED. Patient seen briefly, awake, alert, unable to participate in interview--speaking nonsensically. Spit out pill that was in her mouth, onto the bed. Restless, mumbling Collateral obtained from HCP Juanjo, who is also patient's partner and caregiver. Juanjo reports Belia drinks about 3 beers daily. He reports she does this when he leaves the house. Reviewed +UDS results, patient reports the only medications she takes are the ones that are prescribed to her. This mortgage underwriter inquired if there was any possibility that patient would have any access to illicit pills for either pain or anxiety, he stated, absolutely not . He then went on to state that he he would like patient placed in a rehab for 6 months until she is better and I can take care of her , this mortgage underwriter clarified that patient's dementia and ability to care for herself were not likely to improve--but over time will likely increase in need for support and supervision. Past Psychiatric History: Previous regime: Klonopin 1 mg bid, Seroquel 50 mg bid and Citalopram 40 mg daily. Reports daily cannabis, Review of Systems Review of Systems Yes Unobtainable due to mental status Diagnostics Vital Signs (24Hr): Vital Signs - 24 hr 03/03/23 14:36 03/03/23 15:39 03/03/23 16:45 Temperature Pulse Rate 116 H 80 130 H Respiratory Rate 22 H 14 24 H Blood Pressure 189/84 H 133/64 149/82 H Pulse Oximetry 90 L 91 L 92 Oxygen Delivery Method Room Air Room Air Room Air 03/03/23 19:36 03/03/23 20:00 03/04/23 07:47 Temperature 98.0 F 99.9 F Pulse Rate 105 H 107 H 132 H Respiratory Rate 20 20 25 H Blood Pressure 147/105 H 160/90 H Pulse Oximetry 97 97 Oxygen Delivery Method Room Air Room Air 03/04/23 11:16 03/04/23 11:42 Temperature 99.1 F Pulse Rate 125 H 100 Respiratory Rate 22 H 16 Blood Pressure 184/81 H Pulse Oximetry 98 Oxygen Delivery Method Room Air BMI result Body Mass Index 32.9 Labs 03/04/23 07:32 03/04/23 07:32 Labs: Laboratory Results - last 48 hr 03/02/23 03/02/23 03/02/23 21:25 21:28 23:36 WBC RBC Hgb Hct MCV MCH MCHC RDW Plt Count MPV Immature Gran % (Auto) Neut % (Auto) Lymph % (Auto) Mineral % (Auto) Eos % (Auto) Baso % (Auto) Lymph # (Auto) Mineral # (Auto) Eos # (Auto) Baso # (Auto) Abs Immat Gran (auto) Absolute Neuts (auto) Absolute Nucleated RBC Nucleated RBC % (auto) Smear Tech's Comments PT INR O2 Saturation ABG pH at Pt Temp ABG pCO2 at Pt Temp ABG pO2 at Pt Temp ABG HCO3 ABG Base Excess (Actual) VBG pH VBG pCO2 VBG pO2 VBG HCO3 VBG O2 Saturation VBG Base Excess Sodium 123 L Potassium 5.8 H D Chloride 93 L Carbon Dioxide 17 L Anion Gap 19 BUN 17 H Creatinine 1.40 Estim Creat Clear Calc 37.5 Estimated GFR 37 POC Glucose 160 H Random Glucose 118 H Lactic Acid Calcium 9.0 Magnesium 2.2 Iron 83 TIBC 304 % Saturation 27 Unsat Iron Binding 221 Total Bilirubin 0.7 AST 30 ALT 12 Alkaline Phosphatase 113 Ammonia Total Creatine Kinase 80 Troponin I High Sens B-Natriuretic Peptide Total Protein 7.5 Albumin 3.7 Vitamin B12 354 Folate > 20.0 Urine Color Urine Appearance Urine pH Ur Specific [place] Urine Protein Urine Glucose (UA) Urine Ketones Urine Blood Urine Nitrite Ur Leukocyte Esterase Urine RBC Urine WBC Ur Squamous Epith Cells Urine Bacteria Hyaline Casts Urine Opiates Screen Urine Fentanyl Screen Ur Barbiturates Screen Ur Phencyclidine Scrn Ur Amphetamines Screen U Benzodiazepines Scrn Urine Cocaine Screen U Marijuana (THC) Screen Ethyl Alcohol < 10 COVID-19 ([facility]) Negative COVID-19 Clin Com See Note 03/02/23 03/02/23 03/02/23 23:36 23:36 23:36 WBC RBC Hgb Hct MCV MCH MCHC RDW Plt Count MPV Immature Gran % (Auto) Neut % (Auto) Lymph % (Auto) Mineral % (Auto) Eos % (Auto) Baso % (Auto) Lymph # (Auto) Mineral # (Auto) Eos # (Auto) Baso # (Auto) Abs Immat Gran (auto) Absolute Neuts (auto) Absolute Nucleated RBC Nucleated RBC % (auto) Smear Tech's Comments PT 9.9 L INR 0.9 O2 Saturation ABG pH at Pt Temp ABG pCO2 at Pt Temp ABG pO2 at Pt Temp ABG HCO3 ABG Base Excess (Actual) VBG pH VBG pCO2 VBG pO2 VBG HCO3 VBG O2 Saturation VBG Base Excess Sodium Potassium Chloride Carbon Dioxide Anion Gap BUN Creatinine Estim Creat Clear Calc Estimated GFR POC Glucose Random Glucose Lactic Acid 2.0 Calcium Magnesium Iron TIBC % Saturation Unsat Iron Binding Total Bilirubin AST ALT Alkaline Phosphatase Ammonia Total Creatine Kinase Troponin I High Sens < 2.7 B-Natriuretic Peptide Total Protein Albumin Vitamin B12 Folate Urine Color Urine Appearance Urine pH Ur Specific [place] Urine Protein Urine Glucose (UA) Urine Ketones Urine Blood Urine Nitrite Ur Leukocyte Esterase Urine RBC Urine WBC Ur Squamous Epith Cells Urine Bacteria Hyaline Casts Urine Opiates Screen Urine Fentanyl Screen Ur Barbiturates Screen Ur Phencyclidine Scrn Ur Amphetamines Screen U Benzodiazepines Scrn Urine Cocaine Screen U Marijuana (THC) Screen Ethyl Alcohol COVID-19 ([facility]) COVID-19 Clin Com 03/02/23 03/02/23 03/03/23 23:36 23:39 00:08 WBC 7.3 RBC 3.80 L Hgb 9.7 L D Hct 29.8 L MCV 78.4 L MCH 25.5 L MCHC 32.6 RDW 26.2 H Plt Count 199 D MPV 8.2 L Immature Gran % (Auto) 2.9 H Neut % (Auto) 80.8 H Lymph % (Auto) 6.6 L Mineral % (Auto) 9.5 Eos % (Auto) 0.1 Baso % (Auto) 0.1 Lymph # (Auto) 0.5 L Mineral # (Auto) 0.7 Eos # (Auto) 0.0 Baso # (Auto) 0.0 Abs Immat Gran (auto) 0.21 H Absolute Neuts (auto) 5.9 Absolute Nucleated RBC 0.000 Nucleated RBC % (auto) 0.0 Smear Tech's Comments PT INR O2 Saturation ABG pH at Pt Temp ABG pCO2 at Pt Temp ABG pO2 at Pt Temp ABG HCO3 ABG Base Excess (Actual) VBG pH 7.48 H VBG pCO2 28 VBG pO2 63 VBG HCO3 21 L VBG O2 Saturation 96.0 VBG Base Excess -0.9 Sodium Potassium Chloride Carbon Dioxide Anion Gap BUN Creatinine Estim Creat Clear Calc Estimated GFR POC Glucose Random Glucose Lactic Acid Calcium Magnesium Iron TIBC % Saturation Unsat Iron Binding Total Bilirubin AST ALT Alkaline Phosphatase Ammonia 41 Total Creatine Kinase Troponin I High Sens B-Natriuretic Peptide Total Protein Albumin Vitamin B12 Folate Urine Color Urine Appearance Urine pH Ur Specific [place] Urine Protein Urine Glucose (UA) Urine Ketones Urine Blood Urine Nitrite Ur Leukocyte Esterase Urine RBC Urine WBC Ur Squamous Epith Cells Urine Bacteria Hyaline Casts Urine Opiates Screen Urine Fentanyl Screen Ur Barbiturates Screen Ur Phencyclidine Scrn Ur Amphetamines Screen U Benzodiazepines Scrn Urine Cocaine Screen U Marijuana (THC) Screen Ethyl Alcohol COVID-19 ([facility]) COVID-19 Clin Com 03/03/23 03/03/23 03/03/23 00:22 01:27 01:27 WBC RBC Hgb Hct MCV MCH MCHC RDW Plt Count MPV Immature Gran % (Auto) Neut % (Auto) Lymph % (Auto) Mineral % (Auto) Eos % (Auto) Baso % (Auto) Lymph # (Auto) Mineral # (Auto) Eos # (Auto) Baso # (Auto) Abs Immat Gran (auto) Absolute Neuts (auto) Absolute Nucleated RBC Nucleated RBC % (auto) Smear Tech's Comments PT INR O2 Saturation ABG pH at Pt Temp ABG pCO2 at Pt Temp ABG pO2 at Pt Temp ABG HCO3 ABG Base Excess (Actual) VBG pH VBG pCO2 VBG pO2 VBG HCO3 VBG O2 Saturation VBG Base Excess Sodium Potassium Chloride Carbon Dioxide Anion Gap BUN Creatinine Estim Creat Clear Calc Estimated GFR POC Glucose Random Glucose Lactic Acid Calcium Magnesium Iron TIBC % Saturation Unsat Iron Binding Total Bilirubin AST ALT Alkaline Phosphatase Ammonia Total Creatine Kinase Troponin I High Sens < 2.7 B-Natriuretic Peptide Total Protein Albumin Vitamin B12 Folate Urine Color Yellow Urine Appearance Clear Urine pH 5.0 Ur Specific [place] 1.015 Urine Protein 30 (1+) H Urine Glucose (UA) Negative Urine Ketones Trace Urine Blood Moderate (2+) H Urine Nitrite Positive H Ur Leukocyte Esterase Small (1+) H Urine RBC 3-5 H Urine WBC 6-10 H Ur Squamous Epith Cells 3-5 Urine Bacteria 4+ Hyaline Casts 3-5 Urine Opiates Screen Not Detected Urine Fentanyl Screen POSITIVE H Ur Barbiturates Screen Not Detected Ur Phencyclidine Scrn Not Detected Ur Amphetamines Screen Not Detected U Benzodiazepines Scrn POSITIVE H Urine Cocaine Screen Not Detected U Marijuana (THC) Screen POSITIVE H Ethyl Alcohol COVID-19 ([facility]) COVID-19 Clin Com 03/03/23 03/03/23 03/03/23 02:15 06:01 06:01 WBC 9.6 RBC 3.80 L Hgb 9.8 L Hct 30.3 L MCV 79.7 L MCH 25.8 L MCHC 32.3 RDW 26.6 H Plt Count 180 MPV 8.6 L Immature Gran % (Auto) 2.9 H Neut % (Auto) 66.9 Lymph % (Auto) 8.7 L [place] % (Auto) 21.2 H Eos % (Auto) 0.1 Baso % (Auto) 0.2 Lymph # (Auto) 0.8 L [place] # (Auto) 2.0 H Eos # (Auto) 0.0 Baso # (Auto) 0.0 Abs Immat Gran (auto) 0.28 H Absolute Neuts (auto) 6.4 Absolute Nucleated RBC 0.000 Nucleated RBC % (auto) 0.0 Smear Tech's Comments VERIFIED PT INR O2 Saturation ABG pH at Pt Temp ABG pCO2 at Pt Temp ABG pO2 at Pt Temp ABG HCO3 ABG Base Excess (Actual) VBG pH VBG pCO2 VBG pO2 VBG HCO3 VBG O2 Saturation VBG Base Excess Sodium 126 L 126 L Potassium 5.6 H 5.2 H Chloride 96 97 Carbon Dioxide 19 L 19 L Anion Gap 17 15 BUN 19 H 18 H Creatinine 1.41 H 1.21 Estim Creat Clear Calc 37.2 43.4 Estimated GFR 37 44 POC Glucose Random Glucose 113 99 Lactic Acid Calcium 8.7 8.2 L Magnesium Iron TIBC % Saturation Unsat Iron Binding Total Bilirubin AST ALT Alkaline Phosphatase Ammonia Total Creatine Kinase Troponin I High Sens B-Natriuretic Peptide Total Protein Albumin Vitamin B12 Folate Urine Color Urine Appearance Urine pH Ur Specific [place] Urine Protein Urine Glucose (UA) Urine Ketones Urine Blood Urine Nitrite Ur Leukocyte Esterase Urine RBC Urine WBC Ur Squamous Epith Cells Urine Bacteria Hyaline Casts Urine Opiates Screen Urine Fentanyl Screen Ur Barbiturates Screen Ur Phencyclidine Scrn Ur Amphetamines Screen U Benzodiazepines Scrn Urine Cocaine Screen U Marijuana (THC) Screen Ethyl Alcohol COVID-19 ([facility]) COVID-19 [employer] Com 03/03/23 03/03/23 03/04/23 14:20 14:44 07:32 WBC 6.1 RBC 3.86 L Hgb 10.0 L Hct 31.9 L MCV 82.6 MCH 25.9 L MCHC 31.3 RDW 27.7 H Plt Count 229 D MPV 8.7 L Immature Gran % (Auto) Neut % (Auto) Lymph % (Auto) Mineral % (Auto) Eos % (Auto) Baso % (Auto) Lymph # (Auto) Mineral # (Auto) Eos # (Auto) Baso # (Auto) Abs Immat Gran (auto) Absolute Neuts (auto) Absolute Nucleated RBC 0.000 Nucleated RBC % (auto) 0.0 Smear Tech's Comments PT INR O2 Saturation 88.0 ABG pH at Pt Temp 7.33 L ABG pCO2 at Pt Temp 39 ABG pO2 at Pt Temp 61 L ABG HCO3 21 L ABG Base Excess (Actual) -4.2 VBG pH VBG pCO2 VBG pO2 VBG HCO3 VBG O2 Saturation VBG Base Excess Sodium 134 L Potassium Chloride Carbon Dioxide Anion Gap BUN Creatinine Estim Creat Clear Calc Estimated GFR POC Glucose Random Glucose Lactic Acid Calcium Magnesium Iron TIBC % Saturation Unsat Iron Binding Total Bilirubin AST ALT Alkaline Phosphatase Ammonia Total Creatine Kinase Troponin I High Sens B-Natriuretic Peptide Total Protein Albumin Vitamin B12 Folate Urine Color Urine Appearance Urine pH Ur Specific [place] Urine Protein Urine Glucose (UA) Urine Ketones Urine Blood Urine Nitrite Ur Leukocyte Esterase Urine RBC Urine WBC Ur Squamous Epith Cells Urine Bacteria Hyaline Casts Urine Opiates Screen Urine Fentanyl Screen Ur Barbiturates Screen Ur Phencyclidine Scrn Ur Amphetamines Screen U Benzodiazepines Scrn Urine Cocaine Screen U Marijuana (THC) Screen Ethyl Alcohol COVID-19 ([facility]AK[facility]) COVID-19 [employer] Com 03/04/23 03/04/23 07:32 07:32 WBC RBC Hgb Hct MCV MCH MCHC RDW Plt Count MPV Immature Gran % (Auto) Neut % (Auto) Lymph % (Auto) Mineral % (Auto) Eos % (Auto) Baso % (Auto) Lymph # (Auto) [place] # (Auto) Eos # (Auto) Baso # (Auto) Abs Immat Gran (auto) Absolute Neuts (auto) Absolute Nucleated RBC Nucleated RBC % (auto) Smear Tech's Comments PT INR O2 Saturation ABG pH at Pt Temp ABG pCO2 at Pt Temp ABG pO2 at Pt Temp ABG HCO3 ABG Base Excess (Actual) VBG pH VBG pCO2 VBG pO2 VBG HCO3 VBG O2 Saturation VBG Base Excess Sodium 139 Potassium 4.5 Chloride 105 Carbon Dioxide 19 L Anion Gap 20 BUN 15 Creatinine 1.09 Estim Creat Clear Calc 48.2 Estimated GFR 50 POC Glucose Random Glucose 124 H Lactic Acid Calcium 8.9 D Magnesium Iron TIBC % Saturation Unsat Iron Binding Total Bilirubin 0.5 AST 17 ALT 9 Alkaline Phosphatase 105 Ammonia Total Creatine Kinase Troponin I High Sens B-Natriuretic Peptide 391 H Total Protein 6.6 Albumin 3.5 Vitamin B12 Folate Urine Color Urine Appearance Urine pH Ur Specific [place] Urine Protein Urine Glucose (UA) Urine Ketones Urine Blood Urine Nitrite Ur Leukocyte Esterase Urine RBC Urine WBC Ur Squamous Epith Cells Urine Bacteria Hyaline Casts Urine Opiates Screen Urine Fentanyl Screen Ur Barbiturates Screen Ur Phencyclidine Scrn Ur Amphetamines Screen U Benzodiazepines Scrn Urine Cocaine Screen U Marijuana (THC) Screen Ethyl Alcohol COVID-19 ([facility]) COVID-19 Clin Com Imaging Radiology Impressions: ITS Impressions Cervical Spine CT 03/02/23 21:38 IMPRESSION: No acute intracranial pathology. There is no significant interim change. Of note, imaging is significantly limited by motion artifact. EXAMINATION: CT CERVICAL SPINE WITHOUT CONTRAST CLINICAL INFORMATION: Neck pain status-post fall. COMPARISON: CT cervical spine dated 03/01/2023. TECHNIQUE: Without the addition of intravenous contrast, multiple contiguous multidetector This CT examination was performed using dose optimization techniques as appropriate, variously including the following: *Automated exposure control *Adjustment of mA and/or kV according to patient size (this includes techniques or standardized protocols for targeted exams where dose is matched to indication/reason for exam; i.e. extremities or head) *Use of iterative reconstruction technique DLP: As above. FINDINGS: Vertebral body heights are normal. There is multi-level cervical degenerative disc disease and spondylosis, most pronounced extending from C3-C4 through C7-T1, where it is marked. No acute fracture or spondylolisthesis is seen. The posterior elements are intact. There is multi-level cervical facet arthropathy. The dens is intact. No prevertebral soft tissue swelling is seen. The bilateral lung apices appear clear. IMPRESSION: Again, there are multi-level marked degenerative changes of the cervical spine. No acute fracture or spondylolisthesis is seen. Fleischner guidelines were followed. Head CT 03/02/23 21:38 IMPRESSION: No acute intracranial pathology. There is no significant interim change. Of note, imaging is significantly limited by motion artifact. EXAMINATION: CT CERVICAL SPINE WITHOUT CONTRAST CLINICAL INFORMATION: Neck pain status-post fall. COMPARISON: CT cervical spine dated 03/01/2023. TECHNIQUE: Without the addition of intravenous contrast, multiple contiguous multidetector This CT examination was performed using dose optimization techniques as appropriate, variously including the following: *Automated exposure control *Adjustment of mA and/or kV according to patient size (this includes techniques or standardized protocols for targeted exams where dose is matched to indication/reason for exam; i.e. extremities or head) *Use of iterative reconstruction technique DLP: As above. FINDINGS: Vertebral body heights are normal. There is multi-level cervical degenerative disc disease and spondylosis, most pronounced extending from C3-C4 through C7-T1, where it is marked. No acute fracture or spondylolisthesis is seen. The posterior elements are intact. There is multi-level cervical facet arthropathy. The dens is intact. No prevertebral soft tissue swelling is seen. The bilateral lung apices appear clear. IMPRESSION: Again, there are multi-level marked degenerative changes of the cervical spine. No acute fracture or spondylolisthesis is seen. Fleischner guidelines were followed. Chest X-Ray 03/03/23 04:35 IMPRESSION: Central vascular prominence without overt edema. Mental Status Exam Mental Status Exam Patient Appearance: Disheveled Level of Consciousness: Awake, Disoriented and Restless Judgement: Poor Medications Medications Current Medications Acetaminophen (Acetaminophen Supp 650 Mg Supp.Rect) 650 mg MT Q6H PRN PRN Reason: Pain, Mild (Pain Scale 1-3) Acetaminophen (Acetaminophen 325 Mg Tablet) 650 mg PO Q6H PRN PRN Reason: Pain, Mild (Pain Scale 1-3) Albuterol Sulfate (Albuterol Sulfate 90 Mcg 8 Gm Inhaler) 2 puff INHALE Q4H PRN PRN Reason: Shortness Of Breath Or Wheezing Albuterol/Ipratropium (Albuterol/Iprat 2.5/0.5mg 3 Ml Ampul.Neb) 3 ml INHALE Q6H PRN PRN Reason: Shortness Of Breath Albuterol/Ipratropium (Albuterol/Iprat 2.5/0.5mg 3 Ml Ampul.Neb) 3 ml INHALE RQ4H WHILE AWAKE [facility] Last Admin: 03/04/23 11:41 Dose: 3 ml Aspirin (Aspirin Enteric Coated 81 Mg Tablet.) 81 mg PO BEDTIME [facility] Last Admin: 03/03/23 22:01 Dose: Not Given Enoxaparin Sodium (Enoxaparin Sodium 40 Mg/0.4 Ml Syringe) 40 mg SUBCUT Q24H [facility] Last Admin: 03/04/23 01:02 Dose: 40 mg Ferrous Sulfate (Ferrous Sulfate 324 Mg Tablet.) 324 mg PO DAILY [facility] Last Admin: 03/04/23 08:50 Dose: 324 mg Fluticasone/Vilanterol (Fluticasone/Vilanterol 100/25 Blst.W.Dev) 1 puff INHALE RDAILY [facility] Last Admin: 03/04/23 07:37 Dose: Not Given Folic Acid (Folic Acid 1 Mg Tablet) 1 mg PO DAILY [facility] Last Admin: 03/04/23 08:50 Dose: 1 mg Furosemide (Furosemide 40 Mg/4 Ml Vial) 40 mg IVPUSH BID@0900,1800 [facility]; Protocol Last Admin: 03/04/23 08:55 Dose: 40 mg Ceftriaxone Sodium 1 gm/ (Sodium Chloride) 50 mls @ 100 mls/hr IV Q24H [facility] Last Infusion: 03/04/23 01:45 Dose: Infused Thiamine HCl 100 mg/ Sodium (Chloride) 101 mls @ 202 mls/hr IV DAILY [facility] Last Infusion: 03/04/23 09:27 Dose: Infused Melatonin (Melatonin 3 Mg Tablet) 6 mg PO BEDTIME PRN PRN Reason: Insomnia Methylprednisolone Sodium Succinate (Methylprednisolone Sod Succ 40 Mg/Ml Vial) 40 mg IVPUSH Q8H [facility] Last Admin: 03/04/23 11:55 Dose: 40 mg Metoprolol Succinate (Metoprolol Succinate Er 25 Mg Tab.Er.24h) 25 mg PO DAILY [facility]; Protocol Last Admin: 03/04/23 08:50 Dose: 25 mg Montelukast Sodium (Montelukast Sodium 10 Mg Tablet) 10 mg PO BEDTIME [facility] Last Admin: 03/03/23 22:01 Dose: Not Given Multivitamins/Vitamin C (Multivitamin Tablet) 1 tab PO DAILY [facility] Last Admin: 03/04/23 08:50 Dose: 1 tab Omeprazole (Omeprazole 40 Mg Capsule.Dr) 40 mg PO DAILY@0630 [facility] Last Admin: 03/04/23 06:20 Dose: Not Given Ondansetron HCl (Ondansetron Hcl 4 Mg/2 Ml Vial) 4 mg IVPUSH Q8H PRN PRN Reason: Nausea and Vomiting Pharmacy Consult (Consult Rx Perform Med Rec) 1 each MISCELLANE ONCE PRN PRN Reason: Consult order Pharmacy Consult (Consult Rx Etoh Phenob Im/Po) 1 each MISCELLANE ONCE PRN; Protocol PRN Reason: Consult order Phenobarbital (Phenobarbital 15 Mg Tablet) 45 mg PO BID [facility]; Protocol Stop: 03/05/23 09:01 Last Admin: 03/04/23 08:50 Dose: 45 mg Phenobarbital (Phenobarbital 30 Mg Tablet) 30 mg PO BID [facility]; Protocol Stop: 03/07/23 09:01 Phenobarbital (Phenobarbital 30 Mg Tablet) 30 mg PO DAILY [facility]; Protocol Stop: 03/09/23 09:01 Pravastatin Sodium (Pravastatin Sodium 20 Mg Tablet) 20 mg PO BEDTIME [facility] Last Admin: 03/03/23 22:01 Dose: Not Given Senna (Sennosides 8.6 Mg Tablet) 8.6 mg PO BID PRN PRN Reason: constipation Sodium Chloride (0.9 % Sodium Chloride Flush 3 Ml Syringe) 3 ml IVFLUSH QSHIFT [facility] Last Admin: 03/04/23 08:56 Dose: 3 ml Thiamine HCl (Thiamine Hcl 100 Mg Tablet) 100 mg PO DAILY [facility] Last Admin: 03/04/23 08:50 Dose: 100 mg Allergies Allergies Allergy/AdvReac Type Severity Reaction Status Date / Time fluticasone Allergy Unknown Verified 11/25/22 17:15 [From Advair Diskus] salmeterol Allergy Unknown Verified 11/25/22 17:15 [From Advair Diskus] paroxetine [From Paxil] AdvReac Intermediate Nausea and Verified 11/25/22 17:15 Vomiting Assessment & Plan Assessment & Plan (1) Alcohol use disorder, severe, dependence: Status: Acute Code(s): F10.20 - Alcohol dependence, uncomplicated Assessment and Plan: * currently being monitored with CIWA and phenobarb protocol * unclear if there is any opioid use--caregiver denies and patient unable to participate in interview. * concern regarding ongoing alcohol use while at home--caregiver minimizing her drinking and it's impact Total time managing care of this patient today 30____ minutes. [facility] Past Medical History Medical History (Updated 03/04/23 @ 14:24 by Inge Maxwell CNP) Acute hyponatremia Acute hyponatremia Alcohol use disorder Bipolar 1 disorder Bipolar I disorder Cannabis use disorder, moderate, dependence Chronic hyponatremia Congestive heart failure COPD (chronic obstructive pulmonary disease) Coronary artery disease Dementia Diabetes Effusion of shoulder joint, left Family history of breast cancer Hypertension Korsakoff disease Mass of joint of left shoulder Osteoarthritis Schizophrenia Shortness of breath Sleep apnea Family History Family History Sister Breast cancer, Onset Age: 40 Sister Breast cancer, Onset Age: 50 Surgical History Surgical History Hx of appendectomy Social History Social History Household Members: Spouse Housing: Apartment Do you presently have visiting nurse or other home services: Yes Unable to assess alcohol history related to: Unable to respond Alcohol intake: current Alcohol intake frequency: a few times a week Alcohol type: beer Patient Tobacco Use Status: Tobacco use Unknown Tobacco use type: Cigarette Cigarettes Per Day: 5 Years Smoked: 53 e-Cigarette/Vaping Use: Never Used Second Hand Smoke Exposure: Yes Substance Use Type: Marijuana Advance Directives Date on File: 10/10/20 service: No Current occupational status: unemployed, disabled and other Sexual orientation: Straight/Heterosexual
--- NOTE | 2023-03-04 13:40 | MHC.CLN ---
RE: CONSULT PT WITH INCREASED NUTRITION RISK R/T [facility] [employer] CURRENTLY NPO FOLLOWING FOR DIET ADVANCEMENT
--- NOTE | 2023-03-04 17:50 | MHC.SL.SWA ---
Speech Pathologist Impression: Risk of Aspiration Due to: Lethargy Reduced Cognition Dysphasia Diet Status: Liquid Consistency and Strategies for Safe Swallow: Liquid Intake Recommendation: NPO Liquid Intake Strategies: Solid Food Consistency: Dietary Recommendations: NPO Additional Modifications to Solid Foods: Oral Medication Intake: NPO Please contact the pharmacy regarding appropriate crushable or liquid drug formulations that are available whenever modified delivery is recommended. Compensatory Strategies and Precautions to be Taken for Safe Swallow: Supervision While Eating and Drinking for Safe Swallow: PO with CLINICAL OPERATIONS MANAGER Foods to Avoid: Swallowing Recommended Treatments: Compens. Strategy Educat. Recommendation for Speech: Inpatient Speech Therapy Comment: Only limited assessment was completed today due to extreme waxing/waning of level of alertness of the patient as well as her high level of confusion/delirium. Patient is edentulous, was able to tolerate trials of puree and soft/ground consistency, however on trials of thin liquid evidenced signs of aspiration, during which she had lapsed briefly into a sleep state (woke up coughing). Patient at this time is at high risk of aspiration due to her fluctuating level of alertness. Recommend continue NPO at this time. CLINICAL OPERATIONS MANAGER will re-assess as patient is able to sustain a greater period of alertness and engagement. MURALI HARTLEY notified of recommendation by secure text, RN in person. Frequency/Duration: Date Range for Service Req: Timeline to reassess: Reeling Machine Setup Operator Clinican/Clinical Fellow: No Supervisory Statement: I have reviewed and agree with the student/clinical fellow's documentation: N/A Speech Language Pathologist: Shanika Chin M.A., CCC-CLINICAL OPERATIONS MANAGER
[2023-03-04] MEDS: Acetaminophen 325 MG TABLET 650 MG PO (20:06)
[2023-03-04] MEDS: Montelukast Sodium 10 MG TABLET PO (20:06)
[2023-03-04] MEDS: Pravastatin Sodium 20 MG TABLET PO (20:06)
[2023-03-04] MEDS: Aspirin Enteric Coated 81 MG TABLET.DR PO (20:06)
[2023-03-05] VITALS (8 sets, daily range): BP systolic 158–176; BP diastolic 70–88; PULSE 82–117; RESP 16–20; TEMP 36–37.2; O2SAT 92–100
[2023-03-05 00:05] LABS: Glucose, Whole Blood 150 mg/dL (60-115)
[2023-03-05] MEDS: cefTRIAXone sodium 1 GM in 0.9 % Sodium Chloride 50 ML IV (01:16)
[2023-03-05] MEDS: Enoxaparin Sodium 40 MG/0.4 ML SYRINGE SUBCUT (01:16)
[2023-03-05] MEDS: Morphine Sulfate 2 MG/ML CARTRIDGE 1 MG IVPUSH (02:12)
[2023-03-05] MEDS: methylPREDNISolone Sod Succ 40 MG/ML VIAL IVPUSH ×3 (02:12→20:33)
[2023-03-05 06:03] LABS: Hemoglobin 10.2 g/dl (12.0-16.0); Mean Corpuscular HGB Conc 30.9 g/dl (31.0-35.0); Mean Corpuscular Hemoglobin 25.4 pg (27.0-33.0); Mean Corpuscular Volume 82.1 fL (80.0-98.0); Mean Platelet Volume 8.8 fL (9.4-12.3); Platelet Count 246 X10*3/uL (160-400); Red Blood Count 4.02 X10*6/uL (4.20-5.50); Red Cell Distribution Width 27.4 % (11.0-16.0); White Blood Count 5.4 X10*3/uL (4.8-10.8)
[2023-03-05 06:21] LABS: Anion Gap 17 (12-20); Blood Urea Nitrogen 21 mg/dL (9-16); Calcium 9.3 mg/dL (8.4-10.2); Carbon Dioxide 25 mmol/L (22-29); Chloride 102 mmol/L (96-108); Creatinine Clr Calc Pharmacy 41.7; Estimated Glomerular Filt Rate 42; Glucose Random 137 mg/dL (60-115); Sodium 140 mmol/L (135-145)
[2023-03-05 06:26] LABS: B Type Natriuretic Peptide 452 pg/mL (<100)
--- NOTE | 2023-03-05 07:00 | CA_ITS ---
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 There is mildly increased left ventricular wall thickness. The left ventricular systolic function is low normal. The visually estimated ejection fraction is between 50-55%. - Normal right ventricular cavity size and systolic function. - There is mild dilatation of the ascending aorta measuring 4.10 cm. Findings Procedure Information The patient declines contrast. Left Ventricle Normal left ventricular cavity size. There is mildly increased left ventricular wall thickness. The left ventricular systolic function is low normal. The visually estimated ejection fraction is between 50-55%. Abnormal diastolic function is noted. Spectral Doppler is indicative of an impaired relaxation filling pattern. E/E prime ratio is between 8 and 15 consistent with indeterminate filling pressures. Right Ventricle Normal right ventricular cavity size and systolic function. Atria The left atrium is likely dilated. The right atrium is likely dilated. Aortic Valve Normal aortic valve structure and function. There is no aortic valve stenosis. There is mild aortic valve regurgitation. Mitral Valve The mitral valve appears normal. There is no mitral valve regurgitation. There is no mitral valve stenosis. Pulmonic Valve The pulmonic valve is likely normal. Tricuspid Valve Normal tricuspid valve structure and function. There is trace tricuspid valve regurgitation. Tricuspid regurgitation envelope is inadequate for calculation of right ventricular systolic pressure. Normal right atrial pressure. Great Vessels There is mild dilatation of the ascending aorta measuring 4.10 cm. The visualized portions of the pulmonary artery and branches are normal. Venous The inferior vena cava is normal in size and collapses greater than 50% with inspiration. Pericardium/Pleural There is no evidence of pericardial effusion. Prior Study Comparison Changes noted compared to prior study dated: 10/12/2020. Low normal LVEF Measurements 2D Linear Measurements IVSd: 1.08 0.6-0.9/0.6-1.0 cm LVIDd: 5.23 3.9-5.3/4.2-5.9 cm LVIDd Index: 2.87 2.4-3.2/2.2-3.1 cm/m2 LVIDs: 3.91 2.0-3.6 cm LVPWd: 1.00 0.7-1.1 cm LA Diam: 3.70 2.7-3.8/3.0-4.0 cm LAIDs Index: 2.03 1.5-2.3 cm/m2 LV Mass: 257.30 67-162/88-224 g LV Mass Index: 141.37 43-95/49-115 g/m2 LVOT Diam: 2.20 3.0+(-)1.3 cm 2D Systolic Function EF Teich: 49.00 >55% EF 2C: 52.30 >55% Mitral Valve MV Pk E: 0.63 MV PK A: 0.86 MV Decel Time: 199.00 E/A: 0.70 E'Lateral: 6.74 E'Medial: 4.79 E/E' Med: 13.20 E/E' Lat: 9.30 PHT: 58.00 MVA PHT: 3.79 Decel [place]: 3.16 Aortic Valve AoV Pk Brien: 1.79 AoV Mn Brien: 1.22 AoV VTI: 0.30 AoV Pk Grad: 13.00 Aov Mn Grad: 7.00 JOSLYN Cont.VTI: 2.88 AI Pk Brien: 3.70 AI [place]: 1.79 LVOT LVOT Pk Brien: 1.15 LVOT Mn Brien: 0.72 LVOT VTI: 0.23 LVOT Pk Grad: 5.00 LVOT Mn Grad: 3.00 LVOT Diam: 2.20 LVOT Area: 3.80 Diastolic Function MV Pk E: 0.63 MV Pk A: 0.86 E/A: 0.70 E'Medial: 4.79 E/E' Med: 13.20 E' Laterial: 6.74 E/E' Lat: 9.30 Right Ventricle TAPSE (mm): 30.00 TVS' Brien: 13.30 Tricuspid Valve RA Press: 8.00 Great Vessels Aorta Sinus of Valsalva: 3.60 2.0-3.5 cm Ao Asc: 4.10 2.1-3.4 cm Pulmonary Valve PV Pk Brien: 0.94 Peak PV Grad: 4.00 Updated in Other Vendor System with Status of Final Wilber Kincaid MD electronically signed on 03/05/2023 5:03:41 PM with status of Final
[2023-03-05 08:14] LABS: HBS Num1 0.26 mIU/mL (0-7.99); HBc Num1 0.09 S/CO (0.00-0.79); HBsAGNum1 0.29 S/CO (0.00-0.99); HIV AB/AG Nonreactive (Nonreactive); HIV Num 1 0.06 S/CO (0.00-0.99); Hepatitis B Core Antibody Nonreactive (Nonreactive); Hepatitis B Surface Antigen Negative (Negative); ~Hepatitis B Surface Antibody NONREACTIVE (Nonreactive)
[2023-03-05 08:17] LABS: ~HepC Num1 0.09 S/CO (0.00-0.79); ~Hepatitis C Antibody Nonreactive (Nonreactive)
[2023-03-05] MEDS: Albuterol/Iprat 2.5/0.5MG 3 ML AMPUL.NEB INHALE ×2 (08:22→19:19)
[2023-03-05] MEDS: Thiamine HCL 100 MG in 0.9 % Sodium Chloride 100 ML 202 MG IV (08:42)
[2023-03-05] MEDS: Furosemide 40 MG/4 ML VIAL IVPUSH (08:42)
[2023-03-05] MEDS: 0.9 % Sodium Chloride Flush 3 ML SYRINGE IVFLUSH ×3 (08:42→20:39)
[2023-03-05] MEDS: Multivitamin TABLET 1 TAB PO (08:43)
[2023-03-05] MEDS: Folic Acid 1 MG TABLET PO (08:43)
[2023-03-05] MEDS: Ferrous Sulfate 324 MG TABLET.DR PO (08:43)
[2023-03-05] MEDS: Acetaminophen 325 MG TABLET 650 MG PO ×2 (08:43→21:01)
[2023-03-05] MEDS: Metoprolol Succinate ER 25 MG TAB.ER.24H PO (08:43)
[2023-03-05] MEDS: PHENobarbitaL 15 MG TABLET 45 MG PO (08:44)
--- NOTE | 2023-03-05 10:23 | MHC.CM.PN ---
Per ROUNDS discussion, Patient has (+) BC and is not yet medically cleared for dc; Patient may benefit from a PT eval to assist with disposition.CM will follow.
--- NOTE | 2023-03-05 11:06 | PM.CNCAR ---
History of Present Illness History of Present Illness Date of Service: 03/05/23 Requesting physician: Melody Land Chief complaint: AMS, ?CHF Narrative: 67-year-old female background history of alcohol use presenting with acute mental status change due to polysubstance abuse. She was given IV fluids on admission and left mild congestive heart failure. The fluid was stopped and she was given IV Lasix. Patient is a vague historian. She was seen with classified advertising supervisor. She is saying that she gets chest pains at times but is not getting any discomfort right now. She describes them as a pressure-like feeling. Also saying that sometimes she gets palpitations but has no symptoms right now. She is denying any significant shortness of breath. Blood pressure is reasonable. She was given diuretics. Last echocardiography was in 2020 which showed normal systolic function with pseudomonal filling pattern, mild aortic regurgitation and mildly elevated right-sided filling pressures. EKG showing sinus rhythm, normal axis, nonspecific T-wave changes, QTC 441 milliseconds. [facility] Past Medical History Medical History (Updated 03/04/23 @ 14:24 by Inge aMxwell CNP) Acute hyponatremia Acute hyponatremia Alcohol use disorder Bipolar 1 disorder Bipolar I disorder Cannabis use disorder, moderate, dependence Chronic hyponatremia Congestive heart failure COPD (chronic obstructive pulmonary disease) Coronary artery disease Dementia Diabetes Effusion of shoulder joint, left Family history of breast cancer Hypertension Korsakoff disease Mass of joint of left shoulder Osteoarthritis Schizophrenia Shortness of breath Sleep apnea Family History Family History Sister Breast cancer, Onset Age: 40 Sister Breast cancer, Onset Age: 50 Surgical History Surgical History Hx of appendectomy Social History Social History Household Members: Spouse Housing: Apartment Do you presently have visiting nurse or other home services: Yes Unable to assess alcohol history related to: Unable to respond Alcohol intake: current Alcohol intake frequency: a few times a week Alcohol type: beer Patient Tobacco Use Status: Tobacco use Unknown Tobacco use type: Cigarette Cigarettes Per Day: 5 Years Smoked: 53 e-Cigarette/Vaping Use: Never Used Second Hand Smoke Exposure: Yes Substance Use Type: Marijuana Advance Directives Date on File: 10/10/20 service: No Current occupational status: unemployed, disabled and other Sexual orientation: Straight/Heterosexual Meds Allergies Allergy/AdvReac Type Severity Reaction Status Date / Time fluticasone Allergy Unknown Verified 11/25/22 17:15 [From Advair Diskus] salmeterol Allergy Unknown Verified 11/25/22 17:15 [From Advair Diskus] paroxetine [From Paxil] AdvReac Intermediate Nausea and Verified 11/25/22 17:15 Vomiting Active Medications: Current Medications Acetaminophen (Acetaminophen Supp 650 Mg Supp.Rect) 650 mg W[place] Q6H PRN PRN Reason: Pain, Mild (Pain Scale 1-3) Acetaminophen (Acetaminophen 325 Mg Tablet) 650 mg PO Q6H PRN PRN Reason: Pain, Mild (Pain Scale 1-3) Last Admin: 03/05/23 08:43 Dose: 650 mg Albuterol Sulfate (Albuterol Sulfate 90 Mcg 8 Gm Inhaler) 2 puff INHALE Q4H PRN PRN Reason: Shortness Of Breath Or Wheezing Albuterol/Ipratropium (Albuterol/Iprat 2.5/0.5mg 3 Ml Ampul.Neb) 3 ml INHALE Q6H PRN PRN Reason: Shortness Of Breath Albuterol/Ipratropium (Albuterol/Iprat 2.5/0.5mg 3 Ml Ampul.Neb) 3 ml INHALE RQ4H WHILE AWAKE [facility] Last Admin: 03/05/23 08:22 Dose: 3 ml Aspirin (Aspirin Enteric Coated 81 Mg Tablet.) 81 mg PO BEDTIME [facility] Last Admin: 03/04/23 20:06 Dose: 81 mg Enoxaparin Sodium (Enoxaparin Sodium 40 Mg/0.4 Ml Syringe) 40 mg SUBCUT Q24H [facility] Last Admin: 03/05/23 01:16 Dose: 40 mg Ferrous Sulfate (Ferrous Sulfate 324 Mg Tablet.) 324 mg PO DAILY [facility] Last Admin: 03/05/23 08:43 Dose: 324 mg Fluticasone/Vilanterol (Fluticasone/Vilanterol 100/25 Blst.W.Dev) 1 puff INHALE RDAILY [facility] Last Admin: 03/05/23 08:24 Dose: Not Given Folic Acid (Folic Acid 1 Mg Tablet) 1 mg PO DAILY [facility] Last Admin: 03/05/23 08:43 Dose: 1 mg Furosemide (Furosemide 40 Mg/4 Ml Vial) 40 mg IVPUSH DAILY [facility]; Protocol Ceftriaxone Sodium 1 gm/ (Sodium Chloride) 50 mls @ 100 mls/hr IV Q24H [facility] Last Infusion: 03/05/23 01:55 Dose: Infused Thiamine HCl 100 mg/ Sodium (Chloride) 101 mls @ 202 mls/hr IV DAILY [facility] Last Infusion: 03/05/23 09:15 Dose: Infused Melatonin (Melatonin 3 Mg Tablet) 6 mg PO BEDTIME PRN PRN Reason: Insomnia Methylprednisolone Sodium Succinate (Methylprednisolone Sod Succ 40 Mg/Ml Vial) 40 mg IVPUSH Q8H [facility] Last Admin: 03/05/23 02:12 Dose: 40 mg Metoprolol Succinate (Metoprolol Succinate Er 25 Mg Tab.Er.24h) 25 mg PO DAILY [facility]; Protocol Last Admin: 03/05/23 08:43 Dose: 25 mg Montelukast Sodium (Montelukast Sodium 10 Mg Tablet) 10 mg PO BEDTIME [facility] Last Admin: 03/04/23 20:06 Dose: 10 mg Multivitamins/Vitamin C (Multivitamin Tablet) 1 tab PO DAILY [facility] Last Admin: 03/05/23 08:43 Dose: 1 tab Omeprazole (Omeprazole 40 Mg Capsule.Dr) 40 mg PO DAILY@0630 [facility] Last Admin: 03/05/23 06:22 Dose: Not Given Ondansetron HCl (Ondansetron Hcl 4 Mg/2 Ml Vial) 4 mg IVPUSH Q8H PRN PRN Reason: Nausea and Vomiting Pharmacy Consult (Consult Rx Perform Med Rec) 1 each MISCELLANE ONCE PRN PRN Reason: Consult order Pharmacy Consult (Consult Rx Etoh Phenob Im/Po) 1 each MISCELLANE ONCE PRN; Protocol PRN Reason: Consult order Phenobarbital (Phenobarbital 30 Mg Tablet) 30 mg PO BID [facility]; Protocol Stop: 03/07/23 09:01 Phenobarbital (Phenobarbital 30 Mg Tablet) 30 mg PO DAILY [facility]; Protocol Stop: 03/09/23 09:01 Pravastatin Sodium (Pravastatin Sodium 20 Mg Tablet) 20 mg PO BEDTIME [facility] Last Admin: 03/04/23 20:06 Dose: 20 mg Senna (Sennosides 8.6 Mg Tablet) 8.6 mg PO BID PRN PRN Reason: constipation Sodium Chloride (0.9 % Sodium Chloride Flush 3 Ml Syringe) 3 ml IVFLUSH QSHIFT [facility] Last Admin: 03/05/23 08:42 Dose: 3 ml Thiamine HCl (Thiamine Hcl 100 Mg Tablet) 100 mg PO DAILY [facility] Last Admin: 03/04/23 08:50 Dose: 100 mg Home Medications Medication Instructions Recorded Confirmed Last Taken Type quetiapine 50 mg tablet 50 mg PO TID 07/26/22 03/03/23 Unknown History albuterol sulfate 90 mcg/actuation 2 puff inhalation Q4-6H PRN 11/26/22 03/03/23 Unknown History aerosol inhaler (Ventolin HFA) Shortness Of Breath Or Wheezing aspirin 81 mg tablet,delayed 1 tab PO BEDTIME 11/26/22 03/03/23 Unknown History release folic acid 1 mg tablet 1 mg PO DAILY 11/26/22 03/03/23 Unknown History metoprolol succinate 25 mg 1 tab PO DAILY 11/26/22 03/03/23 Unknown History tablet,extended release 24 hr montelukast 10 mg tablet 1 tab PO BEDTIME 11/26/22 03/03/23 Unknown History omeprazole 40 mg capsule,delayed 1 cap PO DAILY@0630 11/26/22 03/03/23 Unknown History release pravastatin 20 mg tablet 1 tab PO BEDTIME 11/26/22 03/03/23 Unknown History thiamine HCl (vitamin B1) 100 mg 1 tab PO DAILY 11/26/22 03/03/23 Unknown History tablet trazodone 50 mg tablet 1 tab PO BEDTIME PRN insomnia 11/26/22 03/03/23 Unknown History ferrous sulfate 325 mg (65 mg 325 mg PO DAILY 01/31/23 03/03/23 Unknown History iron) tablet (FeroSul) fluticasone 250 mcg-salmeterol 50 1 ea inhalation BID 01/31/23 03/03/23 Unknown History mcg/dose blistr powdr for inhalation (Advair Diskus) ondansetron HCl 4 mg tablet 4 mg PO BID PRN nausea 01/31/23 03/03/23 Unknown History sennosides 8.6 mg tablet (senna) 8.6 mg PO BID PRN constipation 01/31/23 03/03/23 Unknown History ipratropium 0.5 mg-albuterol 3 mg 3 ml inhalation Q6H PRN Shortness 03/03/23 03/03/23 Unknown History (2.5 mg base)/3 mL nebulization Of Breath soln Physical Exam Vital Signs: Vital Signs: Last Vital Signs Temp 97.3 F 03/05/23 10:59 Pulse 91 03/05/23 10:59 Resp 20 03/05/23 10:59 BP 160/80 H 03/05/23 10:59 Pulse Ox 100 03/05/23 10:59 O2 Del Method Room Air 03/05/23 10:59 BMI result Body Mass Index 32.9 GENERAL APPEARANCE: in no acute distress, pleasant. NECK: no carotid bruit, no significant jugular venous distention. SKIN: no suspicious lesions, warm and dry. HEART: no murmurs, regular rate and rhythm. LUNGS: clear to auscultation bilaterally. ABDOMEN: soft, nontender. EXTREMITIES: no edema. PERIPHERAL PULSES: equal. Objective Labs and Meds 03/05/23 05:31 03/05/23 05:31 Lab results: Laboratory Results - last 24 hr 03/04/23 03/04/23 03/05/23 07:32 07:32 00:02 WBC RBC Hgb Hct MCV MCH MCHC RDW Plt Count MPV Absolute Nucleated RBC Nucleated RBC % (auto) Sodium Potassium Chloride Carbon Dioxide Anion Gap BUN Creatinine Estim Creat Clear Calc Estimated GFR POC Glucose 150 H Random Glucose Calcium B-Natriuretic Peptide Hep Bs Antigen Negative Hep Bs Antibody NONREACTIVE Hep B Core Total Ab Nonreactive Hepatitis C Ab (EIA) Nonreactive HIV 1&2 Ab/P24 Ag 4thGn Nonreactive 03/05/23 03/05/23 03/05/23 05:31 05:31 05:31 WBC 5.4 RBC 4.02 L Hgb 10.2 L Hct 33.0 L MCV 82.1 MCH 25.4 L MCHC 30.9 L RDW 27.4 H Plt Count 246 MPV 8.8 L Absolute Nucleated RBC 0.000 Nucleated RBC % (auto) 0.0 Sodium 140 Potassium 4.0 Chloride 102 Carbon Dioxide 25 Anion Gap 17 BUN 21 H Creatinine 1.26 Estim Creat Clear Calc 41.7 Estimated GFR 42 POC Glucose Random Glucose 137 H Calcium 9.3 B-Natriuretic Peptide 452 H Hep Bs Antigen Hep Bs Antibody Hep B Core Total Ab Hepatitis C Ab (EIA) HIV 1&2 Ab/P24 Ag 4thGn Assessment and Plan (1) Congestive heart failure: Status: Acute Plan [age] year female with history of polysubstance abuse presenting with change in mental status. She developed mild congestive heart failure due to fluid resuscitation. She is off IV fluids and is getting Lasix 40 mg IV daily. I think she can continue IV Lasix today and can be changed to p.o. furosemide 20 mg daily from tomorrow. Given polysubstance abuse I think it would be reasonable to do an echocardiogram inpatient. On the other hand if she is ready for discharge soon that she can go home and can have further testing an outpatient. Thank you for allowing me to participate in the care of your patient. Please feel free to contact me if you have any questions. Time Spent With Patient Time: Total time managing care of this patient today ____ minutes. Procedures Date of Service Date of Service: 03/05/23
--- NOTE | 2023-03-05 12:58 | HO.PM.IMPN ---
Subjective Subjective Date of Service: 03/05/23 Interval History: seen and examined this morning follow up for alcohol withdrawal, encephalopathy history obtained with the use of a environmental sustainability manager Patient much more awake, alert and able to answer questions appropriately Review of Systems Review of Systems: Yes all other systems are reviewed and are negative Constitutional Constitutional: Denies chills and Denies fever(s) Cardiovascular Cardiovascular: Denies chest pain, Denies palpitations and Denies dyspnea Respiratory Respiratory: Denies cough and Denies dyspnea Gastrointestinal Gastrointestinal: Denies abdominal pain, Denies nausea and Denies vomiting Endocrine Endocrine: Denies palpitations Physical Exam Vital Signs: Vital Signs: Last Vital Signs Temp 97.3 F 03/05/23 10:59 Pulse 91 03/05/23 10:59 Resp 20 03/05/23 10:59 BP 160/80 H 03/05/23 10:59 Pulse Ox 100 03/05/23 10:59 O2 Del Method Room Air 03/05/23 10:59 BMI result Body Mass Index 32.9 Const: General: cooperative, comfortable, no acute distress, alert and awake Nutritional Appearance: overweight Orientation/consciousness: oriented to person and oriented to place Resp: Effort & Inspection: normal respiratory effort, able to speak in complete sentences, no respiratory distress and no use of accessory muscles Cardio: Rate: regular rate Heart sounds: S1 normal heart sound present and S2 normal heart sound present GI: Inspection: No distended Palpation (GI): Soft to palpation and nontender Neuro: General: oriented to person, oriented to place, moves all extremities and CN's II-XI intact bilaterally Extrem: General: Yes no pedal edema Objective Data Active Medications Acetaminophen (Acetaminophen Supp 650 Mg Supp.Rect) 650 mg [place] Q6H PRN PRN Reason: Pain, Mild (Pain Scale 1-3) Acetaminophen (Acetaminophen 325 Mg Tablet) 650 mg PO Q6H PRN PRN Reason: Pain, Mild (Pain Scale 1-3) Last Admin: 03/05/23 08:43 Dose: 650 mg Documented By: SHEMAR Albuterol Sulfate (Albuterol Sulfate 90 Mcg 8 Gm Inhaler) 2 puff INHALE Q4H PRN PRN Reason: Shortness Of Breath Or Wheezing Albuterol/Ipratropium (Albuterol/Iprat 2.5/0.5mg 3 Ml Ampul.Neb) 3 ml INHALE Q6H PRN PRN Reason: Shortness Of Breath Albuterol/Ipratropium (Albuterol/Iprat 2.5/0.5mg 3 Ml Ampul.Neb) 3 ml INHALE RQ4H WHILE AWAKE [facility] Last Admin: 03/05/23 11:19 Dose: Not Given Documented By: PARISH Non-Admin Reason: Patient Refused Aspirin (Aspirin Enteric Coated 81 Mg Tablet.) 81 mg PO BEDTIME [facility] Last Admin: 03/04/23 20:06 Dose: 81 mg Documented By: ROBERT Enoxaparin Sodium (Enoxaparin Sodium 40 Mg/0.4 Ml Syringe) 40 mg SUBCUT Q24H [facility] Last Admin: 03/05/23 01:16 Dose: 40 mg Documented By: ROBERT Ferrous Sulfate (Ferrous Sulfate 324 Mg Tablet.) 324 mg PO DAILY [facility] Last Admin: 03/05/23 08:43 Dose: 324 mg Documented By: SHEMAR Fluticasone/Vilanterol (Fluticasone/Vilanterol 100/25 Blst.W.Dev) 1 puff INHALE RDAILY [facility] Last Admin: 03/05/23 08:24 Dose: Not Given Documented By: PARISH Non-Admin Reason: Patient Condition Contraindication Folic Acid (Folic Acid 1 Mg Tablet) 1 mg PO DAILY [facility] Last Admin: 03/05/23 08:43 Dose: 1 mg Documented By: SHEMAR Furosemide (Furosemide 40 Mg/4 Ml Vial) 40 mg IVPUSH DAILY [facility]; Protocol Ceftriaxone Sodium 1 gm/ (Sodium Chloride) 50 mls @ 100 mls/hr IV Q24H [facility] Last Infusion: 03/05/23 01:55 Dose: 0 mls/hr Documented By: ROBERT Thiamine HCl 100 mg/ Sodium (Chloride) 101 mls @ 202 mls/hr IV DAILY [facility] Last Infusion: 03/05/23 09:15 Dose: 0 mls/hr Documented By: SHEMAR Melatonin (Melatonin 3 Mg Tablet) 6 mg PO BEDTIME PRN PRN Reason: Insomnia Methylprednisolone Sodium Succinate (Methylprednisolone Sod Succ 40 Mg/Ml Vial) 40 mg IVPUSH Q8H [facility] Last Admin: 03/05/23 12:27 Dose: 40 mg Documented By: SHEMAR Metoprolol Succinate (Metoprolol Succinate Er 25 Mg Tab.Er.24h) 25 mg PO DAILY [facility]; Protocol Last Admin: 03/05/23 08:43 Dose: 25 mg Documented By: SHEMAR Montelukast Sodium (Montelukast Sodium 10 Mg Tablet) 10 mg PO BEDTIME [facility] Last Admin: 03/04/23 20:06 Dose: 10 mg Documented By: ROBERT Multivitamins/Vitamin C (Multivitamin Tablet) 1 tab PO DAILY [facility] Last Admin: 03/05/23 08:43 Dose: 1 tab Documented By: SHEMAR Omeprazole (Omeprazole 40 Mg Capsule.Dr) 40 mg PO DAILY@0630 [facility] Last Admin: 03/05/23 06:22 Dose: Not Given Documented By: ROBERT Non-Admin Reason: Patient Condition Contraindication Ondansetron HCl (Ondansetron Hcl 4 Mg/2 Ml Vial) 4 mg IVPUSH Q8H PRN PRN Reason: Nausea and Vomiting Pharmacy Consult (Consult Rx Perform Med Rec) 1 each MISCELLANE ONCE PRN PRN Reason: Consult order Pharmacy Consult (Consult Rx Etoh Phenob Im/Po) 1 each MISCELLANE ONCE PRN; Protocol PRN Reason: Consult order Phenobarbital (Phenobarbital 30 Mg Tablet) 30 mg PO BID [facility]; Protocol Stop: 03/07/23 09:01 Phenobarbital (Phenobarbital 30 Mg Tablet) 30 mg PO DAILY [facility]; Protocol Stop: 03/09/23 09:01 Pravastatin Sodium (Pravastatin Sodium 20 Mg Tablet) 20 mg PO BEDTIME [facility] Last Admin: 03/04/23 20:06 Dose: 20 mg Documented By: ROBERT Senna (Sennosides 8.6 Mg Tablet) 8.6 mg PO BID PRN PRN Reason: constipation Sodium Chloride (0.9 % Sodium Chloride Flush 3 Ml Syringe) 3 ml IVFLUSH QSHIFT [facility] Last Admin: 03/05/23 08:42 Dose: 3 ml Documented By: SHEMAR Thiamine HCl (Thiamine Hcl 100 Mg Tablet) 100 mg PO DAILY [facility] Last Admin: 03/04/23 08:50 Dose: 100 mg Documented By: SHEMAR Labs 03/05/23 05:31 03/05/23 05:31 Labs: Laboratory Results - last 24 hr 03/04/23 03/04/23 03/05/23 07:32 07:32 00:02 MCV MCH MCHC RDW Plt Count MPV Absolute Nucleated RBC Nucleated RBC % (auto) Anion Gap Estim Creat Clear Calc Estimated GFR POC Glucose 150 H Random Glucose Calcium B-Natriuretic Peptide Hep Bs Antigen Negative Hep Bs Antibody NONREACTIVE Hep B Core Total Ab Nonreactive Hepatitis C Ab (EIA) Nonreactive HIV 1&2 Ab/P24 Ag 4thGn Nonreactive 03/05/23 03/05/23 03/05/23 05:31 05:31 05:31 MCV 82.1 MCH 25.4 L MCHC 30.9 L RDW 27.4 H Plt Count 246 MPV 8.8 L Absolute Nucleated RBC 0.000 Nucleated RBC % (auto) 0.0 Anion Gap 17 Estim Creat Clear Calc 41.7 Estimated GFR 42 POC Glucose Random Glucose 137 H Calcium 9.3 B-Natriuretic Peptide 452 H Hep Bs Antigen Hep Bs Antibody Hep B Core Total Ab Hepatitis C Ab (EIA) HIV 1&2 Ab/P24 Ag 4thGn Microbiology Microbiology Results: Microbiology 03/02/23 23:36 Blood Culture - Preliminary Blood - Venous Prelim: GPC Gram Stain only 03/03/23 Unknown Urine Culture - Preliminary Urine Catheterized - Dudley Catheter Culture in progress. 03/02/23 20:38 Blood Culture - Final Blood - Venous Assessment and Plan (1) Alcohol use disorder, severe, dependence: Status: Acute (2) Congestive heart failure: Status: Acute (3) AMS (altered mental status): Status: Acute Plan This is a 67-year-old female with pertinent history of alcohol use disorder, cannabis use disorder, fentanyl use disorder who was brought to the emergency department by for evaluation of altered mentation. Acute toxic metabolic encephalopathy. much more awake, alert and interactive this am. UDS positive for fentanyl, benzos and marijuana, h/o etoh abuse Brain CT negative for acute intracranial pathology. no focal deficits appreciated renal function improving, LFTs/ammonia wnl likely multifactorial related to withdrawal, sedating medication, UTI speech re-eval, currently NPO due to previous sedation polysubstance use/alcohol use disorder continue phenobarbitol protocol Monitor CIWA continue IV thiamine addiction medicine following Acute CHF, unspecified initially received IVF resuscitation, started on IV lasix / will decrease lasix to 40 daily BNP 391, CXR with central vascular prominence follow Is&Os ECHO pending - last echo from 09/2020 with preserved EF seen by cardiology - continue IV lasix for one more day then change to po lasix 20 daily in am Acute COPD exacerbation no hypoxia wean solu-medrol continue breathing treatments Bacteremia 1/2 blood cultures growing GPC - likely contaminant - follow final culture results Acute UTI continue IV Rocephin Follow urine culture Hyponatremia resolved hyperkalemia resolved SAGAR resolved SCr seems to be at baseline Chronic microcytic anemia H/H stable B12, folate, iron profile wnl continue iron supplementation Bipolar disorder/schizophrenia hold seroquel for now Essential hypertension. Continue home metoprolol HLD continue statin DVT prophylaxis: Lovenox Full code attending - dr. banda Requires ongoing inpatient hospitalization for close monitoring of mentation and IV antibiotics for UTI, alcohol withdrawal management Time Spent With Patient Time: Total time managing care of this patient today ____ minutes. Quality Stroke Does the patient have a stroke diagnosis?: No VTE Prior VTE?: No VTE Risk Level:: Medical - moderate - high VTE Device Contraindication: Treatment Not Indicated VTE Drug Contraindication: N/A - Med Ordered
--- NOTE | 2023-03-05 14:28 | MHC.CM.PN ---
PT is recommending STR;CM will continue to follow.
--- NOTE | 2023-03-05 16:58 | MHC.SL.SWA ---
Speech Pathologist Impression: Risk of aspiration, oropharyngeal dysphagia Risk of Aspiration Due to: Lethargy Reduced Cognition Dysphasia Diet Status: Start on NDD1/HTL Liquid Consistency and Strategies for Safe Swallow: Liquid Intake Recommendation: Honey Thick Liquid Intake Strategies: Small Sips No Straws Solid Food Consistency: Dietary Recommendations: Pureed (NDD1) Additional Modifications to Solid Foods: Recommend start on PUREED (NDD1) solids with HONEY THICK liquids by teaspoon or CONTROLLED cup (NO STRAWS), crushed pills in puree. Pt is able to feed herself, but is VERY impulsive, not always responding to verbal cues. Pt needs at the least 1:1 supervision, provide assistance as needed (control cup, ensure individual sips/bites). Aspiration precautions apply, monitor closely for any overt s/s of aspiration. Hold tray if pt is lethargic or not attending to meal. SENIOR POLICY ANALYST wrote recommendations on whiteboard in pt's room. Advised care team (ALICIA, RN, RD) via [employer] Message. Diet order updated by ALICIA. Oral Medication Intake: Crushed with Puree Please contact the pharmacy regarding appropriate crushable or liquid drug formulations that are available whenever modified delivery is recommended. Compensatory Strategies and Precautions to be Taken for Safe Swallow: Sitting Upright (90 deg) No Straw Liquids from Cup Liquids from Spoon Small Bites and Sips Rate of Ingestion Change Oral Check Supervision While Eating and Drinking for Safe Swallow: Total Assistance (1:1) Swallowing Recommended Treatments: Compens. Strategy Educat. Recommendation for Speech: Inpatient Speech Therapy Senior Water/Wastewater Engineer Clinican/Clinical Fellow: No Supervisory Statement: I have reviewed and agree with the student/clinical fellow's documentation: N/A Speech Language Pathologist: Sydni Smith M.A., CCC-SENIOR POLICY ANALYST
[2023-03-05] MEDS: Pravastatin Sodium 20 MG TABLET PO (20:34)
[2023-03-05] MEDS: Montelukast Sodium 10 MG TABLET PO (20:34)
[2023-03-05] MEDS: PHENobarbitaL 30 MG TABLET PO (20:34)
[2023-03-05] MEDS: Melatonin 3 MG TABLET 6 MG PO (20:35)
[2023-03-05] MEDS: Aspirin Enteric Coated 81 MG TABLET.DR PO (20:35)
[2023-03-06] VITALS (7 sets, daily range): BP systolic 135–188; BP diastolic 63–83; PULSE 69–90; RESP 18–20; TEMP 36.4–37; O2SAT 96–98
[2023-03-06] MEDS: Enoxaparin Sodium 40 MG/0.4 ML SYRINGE SUBCUT (03:32)
[2023-03-06] MEDS: cefTRIAXone sodium 1 GM in 0.9 % Sodium Chloride 50 ML IV (03:33)
[2023-03-06] MEDS: Thiamine HCL 100 MG in 0.9 % Sodium Chloride 100 ML 202 MG IV (10:04)
[2023-03-06] MEDS: Furosemide 40 MG/4 ML VIAL IVPUSH (10:05)
[2023-03-06] MEDS: Metoprolol Succinate ER 25 MG TAB.ER.24H PO (10:05)
[2023-03-06] MEDS: PHENobarbitaL 30 MG TABLET PO ×2 (10:05→21:54)
[2023-03-06] MEDS: Folic Acid 1 MG TABLET PO (10:05)
[2023-03-06] MEDS: amLODIPine Besylate 5 MG TABLET PO (10:06)
[2023-03-06] MEDS: Multivitamin TABLET 1 TAB PO (10:06)
[2023-03-06] MEDS: Ferrous Sulfate 324 MG TABLET.DR PO (10:06)
[2023-03-06] MEDS: Omeprazole 40 MG CAPSULE.DR PO (10:06)
[2023-03-06] MEDS: methylPREDNISolone Sod Succ 40 MG/ML VIAL IVPUSH ×2 (10:10→21:55)
[2023-03-06] MEDS: 0.9 % Sodium Chloride Flush 3 ML SYRINGE IVFLUSH (10:12)
--- NOTE | 2023-03-06 11:13 | PM.PNCARD ---
Subjective Subjective Date of Service: 03/06/23 Interval history: Seen and examined at bedside. Feeling better. BP high. Physical Exam Vital Signs: Last Vital Signs Temp 98.6 F 03/06/23 07:36 Pulse 83 03/06/23 07:36 Resp 19 03/06/23 07:36 BP 173/76 H 03/06/23 07:36 Pulse Ox 98 03/06/23 07:36 O2 Del Method Room Air 03/06/23 07:36 BMI result Body Mass Index 32.9 GENERAL APPEARANCE: in no acute distress, pleasant. NECK: no carotid bruit, no significant jugular venous distention. SKIN: no suspicious lesions, warm and dry. HEART: no murmurs, regular rate and rhythm. LUNGS: clear to auscultation bilaterally. ABDOMEN: soft, nontender. EXTREMITIES: no edema. PERIPHERAL PULSES: equal. Objective Labs and Meds 03/05/23 05:31 03/05/23 05:31 Progress Note: A&P Assessment and plan (1) Hypertension: Status: Acute (2) Congestive heart failure: Status: Acute Plan 67 female with mild CHF, alcohol use and HTN. Looks euvolemic. PO Lasix. BP is high. Adding Amlodipine 5 mg. Will follow along. Thank you for allowing me to participate in the care of your patient. Please feel free to contact me if you have any questions. Time Spent With Patient Time: Total time managing care of this patient today ____ minutes. Progress Note: Quality Stroke Does the patient have a stroke diagnosis?: No Procedures Date of Service Date of Service: 03/06/23
--- NOTE | 2023-03-06 14:01 | HO.PM.IMPN ---
Subjective Subjective Date of Service: 03/06/23 Interval History: seen and examined this morning follow up for alcohol withdrawal, encephalopathy history obtained with the use of a intellectual property legal assistant Patient much more awake, alert and able to answer questions appropriately Review of Systems Review of Systems: Yes all other systems are reviewed and are negative Constitutional Constitutional: Denies chills and Denies fever(s) Cardiovascular Cardiovascular: Denies chest pain, Denies palpitations and Denies dyspnea Respiratory Respiratory: Denies cough and Denies dyspnea Gastrointestinal Gastrointestinal: Denies abdominal pain, Denies nausea and Denies vomiting Endocrine Endocrine: Denies palpitations Physical Exam Vital Signs: Vital Signs: Last Vital Signs Temp 98.2 F 03/06/23 12:00 Pulse 81 03/06/23 12:00 Resp 18 03/06/23 12:00 BP 166/79 H 03/06/23 12:00 Pulse Ox 98 03/06/23 12:00 O2 Del Method Room Air 03/06/23 12:00 BMI result Body Mass Index 32.9 Appearing in no acute distress lung sounds are clear to auscultation heart regular rate rhythm, clear S1, S2 positive bowel sounds, abdomen is soft, nontender neuro patient is alert x3, no focal deficits Objective Data Active Medications Acetaminophen (Acetaminophen Supp 650 Mg Supp.Rect) 650 mg [place] Q6H PRN PRN Reason: Pain, Mild (Pain Scale 1-3) Acetaminophen (Acetaminophen 325 Mg Tablet) 650 mg PO Q6H PRN PRN Reason: Pain, Mild (Pain Scale 1-3) Last Admin: 03/05/23 21:01 Dose: 650 mg Documented By: SARAI Albuterol Sulfate (Albuterol Sulfate 90 Mcg 8 Gm Inhaler) 2 puff INHALE Q4H PRN PRN Reason: Shortness Of Breath Or Wheezing Albuterol/Ipratropium (Albuterol/Iprat 2.5/0.5mg 3 Ml Ampul.Neb) 3 ml INHALE Q6H PRN PRN Reason: Shortness Of Breath Albuterol/Ipratropium (Albuterol/Iprat 2.5/0.5mg 3 Ml Ampul.Neb) 3 ml INHALE RQ4H WHILE AWAKE [facility] Last Admin: 03/06/23 11:33 Dose: Not Given Documented By: JHONNY Non-Admin Reason: Patient Asleep Amlodipine Besylate (Amlodipine Besylate 5 Mg Tablet) 5 mg PO DAILY [facility]; Protocol Last Admin: 03/06/23 10:06 Dose: 5 mg Documented By: MADELYN Aspirin (Aspirin Enteric Coated 81 Mg Tablet.) 81 mg PO BEDTIME [facility] Last Admin: 03/05/23 20:35 Dose: 81 mg Documented By: SARAI Enoxaparin Sodium (Enoxaparin Sodium 40 Mg/0.4 Ml Syringe) 40 mg SUBCUT Q24H [facility] Last Admin: 03/06/23 03:32 Dose: 40 mg Documented By: SARAI Ferrous Sulfate (Ferrous Sulfate 324 Mg Tablet.) 324 mg PO DAILY [facility] Last Admin: 03/06/23 10:06 Dose: 324 mg Documented By: MADELYN Fluticasone/Vilanterol (Fluticasone/Vilanterol 100/25 Blst.W.Dev) 1 puff INHALE RDAILY [facility] Last Admin: 03/06/23 08:40 Dose: Not Given Documented By: JHONNY Non-Admin Reason: Patient Asleep Folic Acid (Folic Acid 1 Mg Tablet) 1 mg PO DAILY [facility] Last Admin: 03/06/23 10:05 Dose: 1 mg Documented By: MADELYN Furosemide (Furosemide 40 Mg/4 Ml Vial) 40 mg IVPUSH DAILY [facility]; Protocol Last Admin: 03/06/23 10:05 Dose: 40 mg Documented By: MADELYN Ceftriaxone Sodium 1 gm/ (Sodium Chloride) 50 mls @ 100 mls/hr IV Q24H [facility] Last Infusion: 03/06/23 04:05 Dose: 0 mls/hr Documented By: SARAI Thiamine HCl 100 mg/ Sodium (Chloride) 101 mls @ 202 mls/hr IV DAILY [facility] Last Infusion: 03/06/23 12:02 Dose: 0 mls/hr Documented By: MADELYN Melatonin (Melatonin 3 Mg Tablet) 6 mg PO BEDTIME PRN PRN Reason: Insomnia Last Admin: 03/05/23 20:35 Dose: 6 mg Documented By: SARAI Methylprednisolone Sodium Succinate (Methylprednisolone Sod Succ 40 Mg/Ml Vial) 40 mg IVPUSH Q12H [facility] Last Admin: 03/06/23 10:10 Dose: 40 mg Documented By: MADELYN Metoprolol Succinate (Metoprolol Succinate Er 25 Mg Tab.Er.24h) 25 mg PO DAILY [facility]; Protocol Last Admin: 03/06/23 10:05 Dose: 25 mg Documented By: MADELYN Montelukast Sodium (Montelukast Sodium 10 Mg Tablet) 10 mg PO BEDTIME [facility] Last Admin: 03/05/23 20:34 Dose: 10 mg Documented By: SARAI Multivitamins/Vitamin C (Multivitamin Tablet) 1 tab PO DAILY [facility] Last Admin: 03/06/23 10:06 Dose: 1 tab Documented By: MADELYN Omeprazole (Omeprazole 40 Mg Capsule.Dr) 40 mg PO DAILY@0630 [facility] Last Admin: 03/06/23 10:06 Dose: 40 mg Documented By: MADELYN Ondansetron HCl (Ondansetron Hcl 4 Mg/2 Ml Vial) 4 mg IVPUSH Q8H PRN PRN Reason: Nausea and Vomiting Pharmacy Consult (Consult Rx Perform Med Rec) 1 each MISCELLANE ONCE PRN PRN Reason: Consult order Pharmacy Consult (Consult Rx Etoh Phenob Im/Po) 1 each MISCELLANE ONCE PRN; Protocol PRN Reason: Consult order Phenobarbital (Phenobarbital 30 Mg Tablet) 30 mg PO BID [facility]; Protocol Stop: 03/07/23 09:01 Last Admin: 03/06/23 10:05 Dose: 30 mg Documented By: MADELYN Phenobarbital (Phenobarbital 30 Mg Tablet) 30 mg PO DAILY [facility]; Protocol Stop: 03/09/23 09:01 Pravastatin Sodium (Pravastatin Sodium 20 Mg Tablet) 20 mg PO BEDTIME [facility] Last Admin: 03/05/23 20:34 Dose: 20 mg Documented By: SARAI Senna (Sennosides 8.6 Mg Tablet) 8.6 mg PO BID PRN PRN Reason: constipation Sodium Chloride (0.9 % Sodium Chloride Flush 3 Ml Syringe) 3 ml IVFLUSH QSHIFT [facility] Last Admin: 03/06/23 10:12 Dose: 3 ml Documented By: MADELYN Thiamine HCl (Thiamine Hcl 100 Mg Tablet) 100 mg PO DAILY [facility] Last Admin: 03/04/23 08:50 Dose: 100 mg Documented By: SHEMAR Labs 03/05/23 05:31 03/05/23 05:31 Microbiology Microbiology Results: Microbiology 03/02/23 23:36 Blood Culture - Preliminary Blood - Venous Staphylococcus species 03/03/23 Unknown Urine Culture - Preliminary Urine Catheterized - Dudley Catheter Gram negative aristides Assessment and Plan (1) Alcohol use disorder, severe, dependence: Status: Acute (2) Congestive heart failure: Status: Acute (3) AMS (altered mental status): Status: Acute Plan This is a 67-year-old female with pertinent history of alcohol use disorder, cannabis use disorder, fentanyl use disorder who was brought to the emergency department by for evaluation of altered mentation. Acute toxic metabolic encephalopathy. much more awake, alert and interactive this am. UDS positive for fentanyl, benzos and marijuana, h/o etoh abuse Brain CT negative for acute intracranial pathology. no focal deficits appreciated renal function improving, LFTs/ammonia wnl likely multifactorial related to withdrawal, sedating medication, UTI speech re-eval, currently NPO due to previous sedation polysubstance use/alcohol use disorder continue phenobarbitol protocol Monitor CIWA continue IV thiamine addiction medicine following Acute CHF, unspecified initially received IVF resuscitation, started on IV lasix 03/03 will decrease lasix to 40 daily BNP 391, CXR with central vascular prominence follow Is&Os ECHO pending - last echo from 09/2020 with preserved EF seen by cardiology - continue IV lasix for one more day then change to po lasix 20 daily in am Acute COPD exacerbation no hypoxia wean solu-medrol continue breathing treatments Bacteremia 1/2 blood cultures growing GPC - likely contaminant - follow final culture results Acute UTI continue IV Rocephin Follow urine culture Hyponatremia resolved hyperkalemia resolved SAGAR resolved SCr seems to be at baseline Chronic microcytic anemia H/H stable B12, folate, iron profile wnl continue iron supplementation Bipolar disorder/schizophrenia hold seroquel for now Essential hypertension. Continue home metoprolol HLD continue statin DVT prophylaxis: Lovenox Full code attending - dr. Valadez Requires ongoing inpatient hospitalization for close monitoring of mentation and IV antibiotics for UTI, alcohol withdrawal management Time Spent With Patient Time: Total time managing care of this patient today ____ minutes. Quality Stroke Does the patient have a stroke diagnosis?: No VTE Prior VTE?: No VTE Risk Level:: Medical - moderate - high VTE Device Contraindication: Treatment Not Indicated VTE Drug Contraindication: N/A - Med Ordered
[2023-03-06] MEDS: QUEtiapine Fumarate 50 MG TABLET PO ×2 (15:18→21:54)
[2023-03-06] MEDS: Albuterol/Iprat 2.5/0.5MG 3 ML AMPUL.NEB INHALE (17:05)
[2023-03-06] MEDS: Acetaminophen 325 MG TABLET 650 MG PO (21:49)
[2023-03-06] MEDS: Pravastatin Sodium 20 MG TABLET PO (21:50)
[2023-03-06] MEDS: Aspirin Enteric Coated 81 MG TABLET.DR PO (21:53)
[2023-03-06] MEDS: Melatonin 3 MG TABLET 6 MG PO (21:53)
[2023-03-06] MEDS: Montelukast Sodium 10 MG TABLET PO (21:54)
[2023-03-07] VITALS (10 sets, daily range): BP systolic 130–157; BP diastolic 63–85; PULSE 77–100; RESP 18–20; TEMP 36.2–36.9; O2SAT 94–99
[2023-03-07] MEDS: 0.9 % Sodium Chloride Flush 3 ML SYRINGE IVFLUSH ×3 (00:02→14:57)
[2023-03-07] MEDS: Enoxaparin Sodium 40 MG/0.4 ML SYRINGE SUBCUT (00:02)
[2023-03-07] MEDS: cefTRIAXone sodium 1 GM in 0.9 % Sodium Chloride 50 ML IV (00:03)
[2023-03-07] MEDS: Albuterol/Iprat 2.5/0.5MG 3 ML AMPUL.NEB INHALE ×4 (04:12→19:30)
[2023-03-07] MEDS: Omeprazole 40 MG CAPSULE.DR PO (05:01)
[2023-03-07] MEDS: Fluticasone/Vilanterol 100/25 BLST.W.DEV 1 PUFF INHALE (07:32)
--- NOTE | 2023-03-07 09:43 | HO.PM.IMPN ---
Subjective Subjective Date of Service: 03/07/23 Interval History: seen and examined this morning follow up for alcohol withdrawal, encephalopathy history obtained with the use of a spanish interpreter Patient much more awake, alert and able to answer questions appropriately Review of Systems Review of Systems: Yes all other systems are reviewed and are negative Constitutional Constitutional: Denies chills and Denies fever(s) Cardiovascular Cardiovascular: Denies chest pain, Denies palpitations and Denies dyspnea Respiratory Respiratory: Denies cough and Denies dyspnea Gastrointestinal Gastrointestinal: Denies abdominal pain, Denies nausea and Denies vomiting Endocrine Endocrine: Denies palpitations Physical Exam Vital Signs: Vital Signs: Last Vital Signs Temp 98.2 F 03/07/23 07:54 Pulse 88 03/07/23 07:54 Resp 18 03/07/23 07:54 BP 130/85 03/07/23 07:54 Pulse Ox 97 03/07/23 07:54 O2 Del Method Room Air 03/07/23 07:54 BMI result Body Mass Index 32.9 Appearing in no acute distress lung sounds are clear to auscultation heart regular rate rhythm, clear S1, S2 positive bowel sounds, abdomen is soft, nontender neuro patient is alert x3, no focal deficits Objective Data Active Medications Acetaminophen (Acetaminophen Supp 650 Mg Supp.Rect) 650 mg SC Q6H PRN PRN Reason: Pain, Mild (Pain Scale 1-3) Acetaminophen (Acetaminophen 325 Mg Tablet) 650 mg PO Q6H PRN PRN Reason: Pain, Mild (Pain Scale 1-3) Last Admin: 03/06/23 21:49 Dose: 650 mg Documented By: AFSHAN Albuterol Sulfate (Albuterol Sulfate 90 Mcg 8 Gm Inhaler) 2 puff INHALE Q4H PRN PRN Reason: Shortness Of Breath Or Wheezing Albuterol/Ipratropium (Albuterol/Iprat 2.5/0.5mg 3 Ml Ampul.Neb) 3 ml INHALE Q6H PRN PRN Reason: Shortness Of Breath Last Admin: 03/07/23 04:12 Dose: 3 ml Documented By: BRYAN Albuterol/Ipratropium (Albuterol/Iprat 2.5/0.5mg 3 Ml Ampul.Neb) 3 ml INHALE RQ4H WHILE AWAKE [facility] Last Admin: 03/07/23 07:32 Dose: 3 ml Documented By: JHONNY Amlodipine Besylate (Amlodipine Besylate 5 Mg Tablet) 5 mg PO DAILY [facility]; Protocol Last Admin: 03/06/23 10:06 Dose: 5 mg Documented By: MADELYN Aspirin (Aspirin Enteric Coated 81 Mg Tablet.) 81 mg PO BEDTIME [facility] Last Admin: 03/06/23 21:53 Dose: 81 mg Documented By: AFSHAN Enoxaparin Sodium (Enoxaparin Sodium 40 Mg/0.4 Ml Syringe) 40 mg SUBCUT Q24H [facility] Last Admin: 03/07/23 00:02 Dose: 40 mg Documented By: ANILA Ferrous Sulfate (Ferrous Sulfate 324 Mg Tablet.) 324 mg PO DAILY [facility] Last Admin: 03/06/23 10:06 Dose: 324 mg Documented By: MADELYN Fluticasone/Vilanterol (Fluticasone/Vilanterol 100/25 Blst.W.Dev) 1 puff INHALE RDAILY [facility] Last Admin: 03/07/23 07:32 Dose: 1 puff Documented By: JHONNY Folic Acid (Folic Acid 1 Mg Tablet) 1 mg PO DAILY [facility] Last Admin: 03/06/23 10:05 Dose: 1 mg Documented By: MADELYN Furosemide (Furosemide 40 Mg/4 Ml Vial) 40 mg IVPUSH DAILY [facility]; Protocol Last Admin: 03/06/23 10:05 Dose: 40 mg Documented By: MADELYN Ceftriaxone Sodium 1 gm/ (Sodium Chloride) 50 mls @ 100 mls/hr IV Q24H [facility] Last Infusion: 03/07/23 01:14 Dose: 0 mls/hr Documented By: ANILA Thiamine HCl 100 mg/ Sodium (Chloride) 101 mls @ 202 mls/hr IV DAILY [facility] Last Infusion: 03/06/23 12:02 Dose: 0 mls/hr Documented By: MDAELYN Melatonin (Melatonin 3 Mg Tablet) 6 mg PO BEDTIME PRN PRN Reason: Insomnia Last Admin: 03/06/23 21:53 Dose: 6 mg Documented By: AFSHAN Methylprednisolone Sodium Succinate (Methylprednisolone Sod Succ 40 Mg/Ml Vial) 40 mg IVPUSH Q12H [facility] Last Admin: 03/06/23 21:55 Dose: 40 mg Documented By: AFSHAN Metoprolol Succinate (Metoprolol Succinate Er 25 Mg Tab.Er.24h) 25 mg PO DAILY [facility]; Protocol Last Admin: 03/06/23 10:05 Dose: 25 mg Documented By: MADELYN Montelukast Sodium (Montelukast Sodium 10 Mg Tablet) 10 mg PO BEDTIME [facility] Last Admin: 03/06/23 21:54 Dose: 10 mg Documented By: AFSHAN Multivitamins/Vitamin C (Multivitamin Tablet) 1 tab PO DAILY [facility] Last Admin: 03/06/23 10:06 Dose: 1 tab Documented By: MADELYN Omeprazole (Omeprazole 40 Mg Capsule.Dr) 40 mg PO DAILY@0630 [facility] Last Admin: 03/07/23 05:01 Dose: 40 mg Documented By: ANILA Ondansetron HCl (Ondansetron Hcl 4 Mg/2 Ml Vial) 4 mg IVPUSH Q8H PRN PRN Reason: Nausea and Vomiting Pharmacy Consult (Consult Rx Perform Med Rec) 1 each MISCELLANE ONCE PRN PRN Reason: Consult order Pharmacy Consult (Consult Rx Etoh Phenob Im/Po) 1 each MISCELLANE ONCE PRN; Protocol PRN Reason: Consult order Phenobarbital (Phenobarbital 30 Mg Tablet) 30 mg PO DAILY [facility]; Protocol Stop: 03/09/23 09:01 Pravastatin Sodium (Pravastatin Sodium 20 Mg Tablet) 20 mg PO BEDTIME [facility] Last Admin: 03/06/23 21:50 Dose: 20 mg Documented By: AFSHAN Quetiapine Fumarate (Quetiapine Fumarate 50 Mg Tablet) 50 mg PO TID [facility] Last Admin: 03/06/23 21:54 Dose: 50 mg Documented By: AFSHAN Senna (Sennosides 8.6 Mg Tablet) 8.6 mg PO BID PRN PRN Reason: constipation Sodium Chloride (0.9 % Sodium Chloride Flush 3 Ml Syringe) 3 ml IVFLUSH QSHIFT [facility] Last Admin: 03/07/23 00:02 Dose: 3 ml Documented By: ANILA Thiamine HCl (Thiamine Hcl 100 Mg Tablet) 100 mg PO DAILY [facility] Last Admin: 03/04/23 08:50 Dose: 100 mg Documented By: FOGARTB Labs 03/05/23 05:31 03/05/23 05:31 Microbiology Microbiology Results: Microbiology 03/02/23 20:38 Blood Culture - Final Blood - Venous 03/02/23 23:36 Blood Culture - Final Blood - Venous Staphylococcus capitis 03/03/23 Unknown Urine Culture - Preliminary Urine Catheterized - Dudley Catheter Escherichia coli Assessment and Plan (1) Alcohol use disorder, severe, dependence: Status: Acute (2) Congestive heart failure: Status: Acute (3) AMS (altered mental status): Status: Acute Plan This is a 67-year-old female with pertinent history of alcohol use disorder, cannabis use disorder, fentanyl use disorder who was brought to the emergency department by for evaluation of altered mentation. Acute toxic metabolic encephalopathy. much more awake, alert and interactive this am. Brain CT negative for acute intracranial pathology. no focal deficits appreciated renal function improving LFTs/ammonia wnl likely multifactorial related to withdrawal, sedating medication, UTI polysubstance use/alcohol use disorder continue phenobarbitol protocol Monitor CIWA continue IV thiamine HFpEF Acute on chronic no overt failure lasix to 40 daily CXR with central vascular prominence follow Is&Os ECHO normal EF Acute COPD exacerbation no hypoxia wean solu-medrol continue breathing treatments coag neg staph 1/2 staph capitis Acute UTI continue IV Rocephin Follow urine culture Hyponatremia resolved hyperkalemia resolved SAGAR resolved SCr seems to be at baseline Chronic microcytic anemia H/H stable B12, folate, iron profile wnl continue iron supplementation Bipolar disorder/schizophrenia seroquel Essential hypertension. Continue home metoprolol HLD continue statin DVT prophylaxis: Lovenox Full code attending - dr. Allyson BALL plan for rehab Requires ongoing inpatient hospitalization for close monitoring of mentation and IV antibiotics for UTI Time Spent With Patient Time: Total time managing care of this patient today ____ minutes. Quality Stroke Does the patient have a stroke diagnosis?: No VTE Prior VTE?: No VTE Risk Level:: Medical - moderate - high VTE Device Contraindication: Treatment Not Indicated VTE Drug Contraindication: N/A - Med Ordered
[2023-03-07] MEDS: amLODIPine Besylate 5 MG TABLET PO (09:59)
[2023-03-07] MEDS: QUEtiapine Fumarate 50 MG TABLET PO ×3 (09:59→19:52)
[2023-03-07] MEDS: Furosemide 40 MG/4 ML VIAL IVPUSH (09:59)
[2023-03-07] MEDS: Ferrous Sulfate 324 MG TABLET.DR PO (09:59)
[2023-03-07] MEDS: Folic Acid 1 MG TABLET PO (09:59)
[2023-03-07] MEDS: Multivitamin TABLET 1 TAB PO (09:59)
[2023-03-07] MEDS: PHENobarbitaL 30 MG TABLET PO (09:59)
[2023-03-07] MEDS: Metoprolol Succinate ER 25 MG TAB.ER.24H PO (09:59)
[2023-03-07] MEDS: methylPREDNISolone Sod Succ 40 MG/ML VIAL IVPUSH ×2 (12:07→19:52)
[2023-03-07] MEDS: Thiamine HCL 100 MG in 0.9 % Sodium Chloride 100 ML 202 MG IV (12:07)
[2023-03-07] MEDS: Acetaminophen 325 MG TABLET 650 MG PO (19:51)
[2023-03-07] MEDS: Aspirin Enteric Coated 81 MG TABLET.DR PO (19:51)
[2023-03-07] MEDS: Pravastatin Sodium 20 MG TABLET PO (19:51)
[2023-03-07] MEDS: Montelukast Sodium 10 MG TABLET PO (19:52)
[2023-03-07] MEDS: Melatonin 3 MG TABLET 6 MG PO (19:54)
[2023-03-08] VITALS (8 sets, daily range): BP systolic 112–148; BP diastolic 60–80; PULSE 70–91; RESP 16–20; TEMP 36.1–36.6; O2SAT 96–100
[2023-03-08] MEDS: Enoxaparin Sodium 40 MG/0.4 ML SYRINGE SUBCUT (00:43)
[2023-03-08] MEDS: cefTRIAXone sodium 1 GM in 0.9 % Sodium Chloride 50 ML IV (00:43)
[2023-03-08] MEDS: Omeprazole 40 MG CAPSULE.DR PO (05:05)
[2023-03-08] MEDS: Albuterol/Iprat 2.5/0.5MG 3 ML AMPUL.NEB INHALE ×2 (05:53→20:21)
[2023-03-08] MEDS: Thiamine HCL 100 MG in 0.9 % Sodium Chloride 100 ML 202 MG IV (08:46)
[2023-03-08] MEDS: Folic Acid 1 MG TABLET PO (08:47)
[2023-03-08] MEDS: Furosemide 20 MG TABLET PO (08:47)
[2023-03-08] MEDS: Ferrous Sulfate 324 MG TABLET.DR PO (08:47)
[2023-03-08] MEDS: Multivitamin TABLET 1 TAB PO (08:47)
[2023-03-08] MEDS: 0.9 % Sodium Chloride Flush 3 ML SYRINGE IVFLUSH ×2 (08:48→20:34)
[2023-03-08] MEDS: QUEtiapine Fumarate 50 MG TABLET PO ×3 (08:48→20:33)
[2023-03-08] MEDS: PHENobarbitaL 30 MG TABLET PO (08:48)
[2023-03-08] MEDS: methylPREDNISolone Sod Succ 40 MG/ML VIAL IVPUSH ×2 (08:48→20:34)
[2023-03-08] MEDS: amLODIPine Besylate 5 MG TABLET PO (08:48)
[2023-03-08] MEDS: Metoprolol Succinate ER 25 MG TAB.ER.24H PO (08:48)
--- NOTE | 2023-03-08 10:15 | MHC.CM.PN ---
PT is recommending STR; Patient states that she wants to go home. HCP has been invoked; plan is for Psych to re-eval to determine present capacity. Home vs STR(Presently only [facility] is offering a bed)is the tentative plan and CM will continue to follow.
[2023-03-08] MEDS: Fluticasone/Vilanterol 100/25 BLST.W.DEV 1 PUFF INHALE (11:09)
--- NOTE | 2023-03-08 13:31 | P.PNIM_ITS ---
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 Patient much more awake, alert and able to answer questions appropriately Review of Systems Review of Systems: Yes all other systems are reviewed and are negative Constitutional Constitutional: Denies chills and Denies fever(s) Cardiovascular Cardiovascular: Denies chest pain, Denies palpitations and Denies dyspnea Respiratory Respiratory: Denies cough and Denies dyspnea Gastrointestinal Gastrointestinal: Denies abdominal pain, Denies nausea and Denies vomiting Endocrine Endocrine: Denies palpitations Physical Exam Vital Signs: Vital Signs: Last Vital Signs Temp 97.8 F 03/08/23 11:19 Pulse 91 03/08/23 11:19 Resp 16 03/08/23 11:19 BP 118/61 03/08/23 11:19 Pulse Ox 96 03/08/23 11:19 O2 Del Method Room Air 03/08/23 11:19 BMI result Body Mass Index 32.9 Objective Data Active Medications Acetaminophen (Acetaminophen Supp 650 Mg Supp.Rect) 650 mg [place] Q6H PRN PRN Reason: Pain, Mild (Pain Scale 1-3) Acetaminophen (Acetaminophen 325 Mg Tablet) 650 mg PO Q6H PRN PRN Reason: Pain, Mild (Pain Scale 1-3) Last Admin: 03/07/23 19:51 Dose: 650 mg Documented By: WILLARD Albuterol Sulfate (Albuterol Sulfate 90 Mcg 8 Gm Inhaler) 2 puff INHALE Q4H PRN PRN Reason: Shortness Of Breath Or Wheezing Albuterol/Ipratropium (Albuterol/Iprat 2.5/0.5mg 3 Ml Ampul.Neb) 3 ml INHALE Q6H PRN PRN Reason: Shortness Of Breath Last Admin: 03/08/23 05:53 Dose: 3 ml Documented By: KARO Albuterol/Ipratropium (Albuterol/Iprat 2.5/0.5mg 3 Ml Ampul.Neb) 3 ml INHALE RQ4H WHILE AWAKE [facility] Last Admin: 03/08/23 12:07 Dose: Not Given Documented By: DESMOND Non-Admin Reason: Patient Asleep Amlodipine Besylate (Amlodipine Besylate 5 Mg Tablet) 5 mg PO DAILY [facility]; Pro tocol Last Admin: 03/08/23 08:48 Dose: 5 mg Documented By: CLYDE Aspirin (Aspirin Enteric Coated 81 Mg Tablet.) 81 mg PO BEDTIME [facility] Last Admin: 03/07/23 19:51 Dose: 81 mg Documented By: WILLARD Enoxaparin Sodium (Enoxaparin Sodium 40 Mg/0.4 Ml Syringe) 40 mg SUBCUT Q24H [facility] Last Admin: 03/08/23 00:43 Dose: 40 mg Documented By: WILLARD Ferrous Sulfate (Ferrous Sulfate 324 Mg Tablet.) 324 mg PO DAILY [facility] Last Admin: 03/08/23 08:47 Dose: 324 mg Documented By: CLYDE Fluticasone/Vilanterol (Fluticasone/Vilanterol 100/25 Blst.W.Dev) 1 puff INHALE RDAILY [facility] Last Admin: 03/08/23 11:09 Dose: 1 puff Documented By: CLYDE Folic Acid (Folic Acid 1 Mg Tablet) 1 mg PO DAILY [facility] Last Admin: 03/08/23 08:47 Dose: 1 mg Documented By: CLYDE Furosemide (Furosemide 20 Mg Tablet) 20 mg PO DAILY [facility]; Protocol Last Admin: 03/08/23 08:47 Dose: 20 mg Documented By: CLYDE Ceftriaxone Sodium 1 gm/ (Sodium Chloride) 50 mls @ 100 mls/hr IV Q24H [facility] Last Infusion: 03/08/23 01:46 Dose: 0 mls/hr Documented By: WILLARD Thiamine HCl 100 mg/ Sodium (Chloride) 101 mls @ 202 mls/hr IV DAILY [facility] Last Infusion: 03/08/23 09:31 Dose: 0 mls/hr Documented By: CLYDE Melatonin (Melatonin 3 Mg Tablet) 6 mg PO BEDTIME PRN PRN Reason: Insomnia Last Admin: 03/07/23 19:54 Dose: 6 mg Documented By: WILLARD Methylprednisolone Sodium Succinate (Methylprednisolone Sod Succ 40 Mg/Ml Vial) 40 mg IVPUSH Q12H [facility] Last Admin: 03/08/23 08:48 Dose: 40 mg Documented By: CLYDE Metoprolol Succinate (Metoprolol Succinate Er 25 Mg Tab.Er.24h) 25 mg PO DAILY [facility]; Protocol Last Admin: 03/08/23 08:48 Dose: 25 mg Documented By: CLYDE Montelukast Sodium (Montelukast Sodium 10 Mg Tablet) 10 mg PO BEDTIME [facility] Last Admin: 03/07/23 19:52 Dose: 10 mg Documented By: WILLARD Multivitamins/Vitamin C (Multivitamin Tablet) 1 tab PO DAILY [facility] Last Admin: 03/08/23 08:47 Dose: 1 tab Documented By: CLYDE Omeprazole (Omeprazole 40 Mg Capsule.Dr) 40 mg PO DAILY@0630 [facility] Last Admin: 03/08/23 05:05 Dose: 40 mg Documented By: WILLARD Ondansetron HCl (Ondansetron Hcl 4 Mg/2 Ml Vial) 4 mg IVPUSH Q8H PRN PRN Reason: Nausea and Vomiting Pharmacy Consult (Consult Rx Perform Med Rec) 1 each MISCELLANE ONCE PRN PRN Reason: Consult order Pharmacy Consult (Consult Rx Etoh Phenob Im/Po) 1 each MISCELLANE ONCE PRN; Protocol PRN Reason: Consult order Phenobarbital (Phenobarbital 30 Mg Tablet) 30 mg PO DAILY [facility]; Protocol Stop: 03/09/23 09:01 Last Admin: 03/08/23 08:48 Dose: 30 mg Documented By: CLYDE Pravastatin Sodium (Pravastatin Sodium 20 Mg Tablet) 20 mg PO BEDTIME [facility] Last Admin: 03/07/23 19:51 Dose: 20 mg Documented By: WILLARD Quetiapine Fumarate (Quetiapine Fumarate 50 Mg Tablet) 50 mg PO TID [facility] Last Admin: 03/08/23 08:48 Dose: 50 mg Documented By: CLYDE Senna (Sennosides 8.6 Mg Tablet) 8.6 mg PO BID PRN PRN Reason: constipation Sodium Chloride (0.9 % Sodium Chloride Flush 3 Ml Syringe) 3 ml IVFLUSH QSHIFT [facility] Last Admin: 03/08/23 08:48 Dose: 3 ml Documented By: CLYDE Thiamine HCl (Thiamine Hcl 100 Mg Tablet) 100 mg PO DAILY [facility] Last Admin: 03/04/23 08:50 Dose: 100 mg Documented By: FOGARTB Labs 03/05/23 05:31 03/05/23 05:31 Microbiology Microbiology Results: Microbiology 03/03/23 Unknown Urine Culture - Final Urine Catheterized - Dudley Catheter Escherichia coli Assessment and Plan (1) Alcohol use disorder, severe, dependence: Status: Acute (2) Congestive heart failure: Status: Acute (3) AMS (altered mental status): Status: Acute Plan This is a 67-year-old female with pertinent history of alcohol use disorder, cannabis use disorder, fentanyl use disorder who was brought to the emergency department by for evaluation of altered mentation. Acute toxic metabolic encephalopathy. much more awake, alert and interactive this am. Brain CT negative for acute intracranial pathology. no focal deficits appreciated renal function improving LFTs/ammonia wnl likely multifactorial related to withdrawal, sedating medication, UTI psych consult pending for capacity polysubstance use/alcohol use disorder continue phenobarbitol protocol Monitor CIWA continue IV thiamine HFpEF Acute on chronic no overt failure lasix to 40 daily CXR with central vascular prominence follow Is&Os ECHO normal EF Acute COPD exacerbation no hypoxia wean solu-medrol continue breathing treatments coag neg staph 1/2 staph capitis Acute UTI continue IV Rocephin Follow urine culture Hyponatremia resolved hyperkalemia resolved SAGAR resolved SCr seems to be at baseline Chronic microcytic anemia H/H stable B12, folate, iron profile wnl continue iron supplementation Bipolar disorder/schizophrenia seroquel Essential hypertension. Continue home metoprolol HLD continue statin DVT prophylaxis: Lovenox Full code attending - dr. Whitman DISPO plan for rehab Requires ongoing inpatient hospitalization for close monitoring of mentation and IV antibiotics for UTI Time Spent With Patient Time: Total time managing care of this patient today ____ minutes. Quality Stroke Does the patient have a stroke diagnosis?: No VTE Prior VTE?: No VTE Risk Level:: Medical - moderate - high VTE Device Contraindication: Treatment Not Indicated VTE Drug Contraindication: N/A - Med Ordered
--- NOTE | 2023-03-08 15:12 | PM.PSYCN ---
History of Present Illness Date of Service: 03/08/2023 Chief Complaint: AMS, ?CHF Reason for Consult: capacity Requesting physician: Katerinemervin Devlin Discussed with referring provider: Yes Sources of Information: patient interviewed, chart reviewed and crisis/core team assessment reviewed HPI Narrative: Mrs. Devlin is a 67 year-old woman who was brought by on 03/03 due to presenting with alter mental status. Utox was positive for fentanyl (which pt adamantly denies using), benzodiazepines and cannabinoids. Pt reported to use alcohol and was started on phenobarbital protocol. Pt also found to have hyponatremia, exacerbation of COPD, and UTI. Note pt had similar presentation back in 2019- UTI and hyponatremia as well (no phenobarbital or tx for alcohol withdrawal at that time). Pt seen in her room. She presents with bright affect. She reports her has told her that she was not acting right. She reports she does not remember what was going on but understands that she was brought to hospital because she was confused. She is able to tell this keno writer / runner that she is in [facility]. She is able to tell me the year, month. The date is off by 5 days. She reports she is feeling well physically. When asked about alcohol use, pt reports she does not use alcohol daily, reports drinking only on Fridays if there is money. She reports she is glad to know that her health is better. She reports her and her were worried about her health. She reports she has supports in the community from physical therapy to her providers and hopes to be discharged soon. She denies SI/HI. No acute psychiatric symptoms noted such as psychosis or delusions. Past Psychiatric History: Previous regime: Klonopin 1 mg bid, Seroquel 50 mg bid and Citalopram 40 mg daily. Reports daily cannabis, PMFSH Medical History (Updated 03/06/23 @ 15:00 by Wilber Kincaid MD) Acute hyponatremia Acute hyponatremia Alcohol use disorder Bipolar 1 disorder Bipolar I disorder Cannabis use disorder, moderate, dependence Chronic hyponatremia Congestive heart failure COPD (chronic obstructive pulmonary disease) Coronary artery disease Dementia Diabetes Effusion of shoulder joint, left Family history of breast cancer Hypertension Korsakoff disease Mass of joint of left shoulder Osteoarthritis Schizophrenia Shortness of breath Sleep apnea Surgical History Hx of appendectomy Family History: Denies Social History: , retired, mother of 2 children, with good social support. Trauma History: affirms Diagnostics Vital Signs (24Hr): Vital Signs - 24 hr 03/07/23 15:19 03/07/23 15:34 03/07/23 19:31 Temperature 98.4 F Pulse Rate 82 100 100 Respiratory Rate 18 20 20 Blood Pressure 148/82 H Pulse Oximetry 94 Oxygen Delivery Method Room Air 03/07/23 19:36 03/07/23 23:25 03/08/23 04:00 Temperature 97.7 F 97.1 F 97.4 F Pulse Rate 96 87 75 Respiratory Rate 20 18 18 Blood Pressure 145/84 H 134/64 132/60 Pulse Oximetry 96 99 100 Oxygen Delivery Method Room Air Room Air Room Air 03/08/23 05:53 03/08/23 11:19 Temperature 97.8 F Pulse Rate 75 91 Respiratory Rate 18 16 Blood Pressure 118/61 Pulse Oximetry 96 Oxygen Delivery Method Room Air BMI result Body Mass Index 32.9 Labs 03/05/23 05:31 03/05/23 05:31 Imaging Radiology Impressions: ITS Impressions Cervical Spine CT 03/02/23 21:38 IMPRESSION: No acute intracranial pathology. There is no significant interim change. Of note, imaging is significantly limited by motion artifact. EXAMINATION: CT CERVICAL SPINE WITHOUT CONTRAST CLINICAL INFORMATION: Neck pain status-post fall. COMPARISON: CT cervical spine dated 03/01/2023. TECHNIQUE: Without the addition of intravenous contrast, multiple contiguous multidetector This CT examination was performed using dose optimization techniques as appropriate, variously including the following: *Automated exposure control *Adjustment of mA and/or kV according to patient size (this includes techniques or standardized protocols for targeted exams where dose is matched to indication/reason for exam; i.e. extremities or head) *Use of iterative reconstruction technique DLP: As above. FINDINGS: Vertebral body heights are normal. There is multi-level cervical degenerative disc disease and spondylosis, most pronounced extending from C3-C4 through C7-T1, where it is marked. No acute fracture or spondylolisthesis is seen. The posterior elements are intact. There is multi-level cervical facet arthropathy. The dens is intact. No prevertebral soft tissue swelling is seen. The bilateral lung apices appear clear. IMPRESSION: Again, there are multi-level marked degenerative changes of the cervical spine. No acute fracture or spondylolisthesis is seen. Fleischner guidelines were followed. Head CT 03/02/23 21:38 IMPRESSION: No acute intracranial pathology. There is no significant interim change. Of note, imaging is significantly limited by motion artifact. EXAMINATION: CT CERVICAL SPINE WITHOUT CONTRAST CLINICAL INFORMATION: Neck pain status-post fall. COMPARISON: CT cervical spine dated 03/01/2023. TECHNIQUE: Without the addition of intravenous contrast, multiple contiguous multidetector This CT examination was performed using dose optimization techniques as appropriate, variously including the following: *Automated exposure control *Adjustment of mA and/or kV according to patient size (this includes techniques or standardized protocols for targeted exams where dose is matched to indication/reason for exam; i.e. extremities or head) *Use of iterative reconstruction technique DLP: As above. FINDINGS: Vertebral body heights are normal. There is multi-level cervical degenerative disc disease and spondylosis, most pronounced extending from C3-C4 through C7-T1, where it is marked. No acute fracture or spondylolisthesis is seen. The posterior elements are intact. There is multi-level cervical facet arthropathy. The dens is intact. No prevertebral soft tissue swelling is seen. The bilateral lung apices appear clear. IMPRESSION: Again, there are multi-level marked degenerative changes of the cervical spine. No acute fracture or spondylolisthesis is seen. Fleischner guidelines were followed. Chest X-Ray 03/03/23 04:35 IMPRESSION: Central vascular prominence without overt edema. Mental Status Exam Mental Status Exam Narrative: Appearance: MO, wearing hospital gown, fair hygiene, in NAD Behavior: cooperative Psychomotor: no agitation or retardation noted Speech: clear, normal rate/rhythm/volume, spontaneous TP: linear TC: no signs of psychosis, delusions, future oriented worried about her health. Mood: better Affect: congruent SI: denies HI: denies VH/AH: none Delusions: none Insight/judgment: fair x 2. Memory/cog: alert, oriented x 4. further memory/cognitive assessment not completed. Medications Medications Current Medications Acetaminophen (Acetaminophen Supp 650 Mg Supp.Rect) 650 mg [place] Q6H PRN PRN Reason: Pain, Mild (Pain Scale 1-3) Acetaminophen (Acetaminophen 325 Mg Tablet) 650 mg PO Q6H PRN PRN Reason: Pain, Mild (Pain Scale 1-3) Last Admin: 03/07/23 19:51 Dose: 650 mg Albuterol Sulfate (Albuterol Sulfate 90 Mcg 8 Gm Inhaler) 2 puff INHALE Q4H PRN PRN Reason: Shortness Of Breath Or Wheezing Albuterol/Ipratropium (Albuterol/Iprat 2.5/0.5mg 3 Ml Ampul.Neb) 3 ml INHALE Q6H PRN PRN Reason: Shortness Of Breath Last Admin: 03/08/23 05:53 Dose: 3 ml Albuterol/Ipratropium (Albuterol/Iprat 2.5/0.5mg 3 Ml Ampul.Neb) 3 ml INHALE RQ4H WHILE AWAKE [facility] Last Admin: 03/08/23 12:07 Dose: Not Given Amlodipine Besylate (Amlodipine Besylate 5 Mg Tablet) 5 mg PO DAILY [facility]; Protocol Last Admin: 03/08/23 08:48 Dose: 5 mg Aspirin (Aspirin Enteric Coated 81 Mg Tablet.) 81 mg PO BEDTIME [facility] Last Admin: 03/07/23 19:51 Dose: 81 mg Enoxaparin Sodium (Enoxaparin Sodium 40 Mg/0.4 Ml Syringe) 40 mg SUBCUT Q24H [facility] Last Admin: 03/08/23 00:43 Dose: 40 mg Ferrous Sulfate (Ferrous Sulfate 324 Mg Tablet.) 324 mg PO DAILY [facility] Last Admin: 03/08/23 08:47 Dose: 324 mg Fluticasone/Vilanterol (Fluticasone/Vilanterol 100/25 Blst.W.Dev) 1 puff INHALE RDAILY [facility] Last Admin: 03/08/23 11:09 Dose: 1 puff Folic Acid (Folic Acid 1 Mg Tablet) 1 mg PO DAILY [facility] Last Admin: 03/08/23 08:47 Dose: 1 mg Furosemide (Furosemide 20 Mg Tablet) 20 mg PO DAILY [facility]; Protocol Last Admin: 03/08/23 08:47 Dose: 20 mg Ceftriaxone Sodium 1 gm/ (Sodium Chloride) 50 mls @ 100 mls/hr IV Q24H [facility] Last Infusion: 03/08/23 01:46 Dose: Infused Thiamine HCl 100 mg/ Sodium (Chloride) 101 mls @ 202 mls/hr IV DAILY [facility] Last Infusion: 03/08/23 09:31 Dose: Infused Melatonin (Melatonin 3 Mg Tablet) 6 mg PO BEDTIME PRN PRN Reason: Insomnia Last Admin: 03/07/23 19:54 Dose: 6 mg Methylprednisolone Sodium Succinate (Methylprednisolone Sod Succ 40 Mg/Ml Vial) 40 mg IVPUSH Q12H [facility] Last Admin: 03/08/23 08:48 Dose: 40 mg Metoprolol Succinate (Metoprolol Succinate Er 25 Mg Tab.Er.24h) 25 mg PO DAILY [facility]; Protocol Last Admin: 03/08/23 08:48 Dose: 25 mg Montelukast Sodium (Montelukast Sodium 10 Mg Tablet) 10 mg PO BEDTIME [facility] Last Admin: 03/07/23 19:52 Dose: 10 mg Multivitamins/Vitamin C (Multivitamin Tablet) 1 tab PO DAILY [facility] Last Admin: 03/08/23 08:47 Dose: 1 tab Omeprazole (Omeprazole 40 Mg Capsule.Dr) 40 mg PO DAILY@0630 [facility] Last Admin: 03/08/23 05:05 Dose: 40 mg Ondansetron HCl (Ondansetron Hcl 4 Mg/2 Ml Vial) 4 mg IVPUSH Q8H PRN PRN Reason: Nausea and Vomiting Pharmacy Consult (Consult Rx Perform Med Rec) 1 each MISCELLANE ONCE PRN PRN Reason: Consult order Pharmacy Consult (Consult Rx Etoh Phenob Im/Po) 1 each MISCELLANE ONCE PRN; Protocol PRN Reason: Consult order Phenobarbital (Phenobarbital 30 Mg Tablet) 30 mg PO DAILY [facility]; Protocol Stop: 03/09/23 09:01 Last Admin: 03/08/23 08:48 Dose: 30 mg Pravastatin Sodium (Pravastatin Sodium 20 Mg Tablet) 20 mg PO BEDTIME [facility] Last Admin: 03/07/23 19:51 Dose: 20 mg Quetiapine Fumarate (Quetiapine Fumarate 50 Mg Tablet) 50 mg PO TID [facility] Last Admin: 03/08/23 08:48 Dose: 50 mg Senna (Sennosides 8.6 Mg Tablet) 8.6 mg PO BID PRN PRN Reason: constipation Sodium Chloride (0.9 % Sodium Chloride Flush 3 Ml Syringe) 3 ml IVFLUSH QSHIFT [facility] Last Admin: 03/08/23 08:48 Dose: 3 ml Thiamine HCl (Thiamine Hcl 100 Mg Tablet) 100 mg PO DAILY [facility] Last Admin: 03/04/23 08:50 Dose: 100 mg Allergies Allergies Allergy/AdvReac Type Severity Reaction Status Date / Time fluticasone Allergy Unknown Verified 11/25/22 17:15 [From Advair Diskus] salmeterol Allergy Unknown Verified 11/25/22 17:15 [From Advair Diskus] paroxetine [From Paxil] AdvReac Intermediate Nausea and Verified 11/25/22 17:15 Vomiting Assessment & Plan Assessment & Plan (1) AMS (altered mental status): Status: Acute Code(s): R41.82 - Altered mental status, unspecified Plan Mrs. Devlin is a 67 year-old woman admitted for toxic encephalopathy. Psychiatry asked to assess capacity. Pt is able to show understanding as to reason for being brought to the hospital. She is oriented to place, month, year, off date but again orientation gradually improving. She appears at this moment to have capacity to make medical decisions. Total time managing care of this patient today ____ minutes.
--- NOTE | 2023-03-08 17:35 | MHC.SL.SWA ---
Speech Pathologist Impression: Risk of aspiration, oropharyngeal dysphagia Risk of Aspiration Due to: Lethargy Reduced Cognition Dysphasia Diet Status: Pt w/ hx dementia. Pt is edentulous. Liquid Consistency and Strategies for Safe Swallow: Liquid Intake Recommendation: Thin Liquid Intake Strategies: Small Sips No Straws Solid Food Consistency: Dietary Recommendations: Grnd/Mech Altered (NDD2) Additional Modifications to Solid Foods: Recommend UPGRADE to GROUND/MECH ALTERED (NDD2) solids and THIN liquids by teaspoon or CONTROLLED cup (NO STRAWS), crushed pills in puree. Pt is able to feed herself, but is VERY impulsive, not always responding to verbal cues. Pt needs at the least 1:1 supervision, provide assistance as needed (control cup, ensure individual sips/bites). Aspiration precautions apply, monitor closely for any overt s/s of aspiration. Hold tray if pt is lethargic or not attending to meal. CAMP DINING ROOM ATTENDANT wrote recommendations on whiteboard in pt's room. Advised care team of upgrade (PRODUCTION SUPERINTENDENT HYDRO, RN, RD) via [place] Message. Diet order updated by CAMP DINING ROOM ATTENDANT. Oral Medication Intake: Crushed with Puree Please contact the pharmacy regarding appropriate crushable or liquid drug formulations that are available whenever modified delivery is recommended. Compensatory Strategies and Precautions to be Taken for Safe Swallow: Sitting Upright (90 deg) No Straw Liquids from Cup Liquids from Spoon Small Bites and Sips Rate of Ingestion Change Oral Check Supervision While Eating and Drinking for Safe Swallow: Total Assistance (1:1) Foods to Avoid: Sticky textures, difficult to chew solids, mixed consistencies Swallowing Recommended Treatments: Compens. Strategy Educat. Recommendation for Speech: Inpatient Speech Therapy Senior Corporate Recruiter Clinican/Clinical Fellow: No Supervisory Statement: I have reviewed and agree with the student/clinical fellow's documentation: N/A Speech Language Pathologist: Sydni Smith M.A., [facility]-CAMP DINING ROOM ATTENDANT
[2023-03-08] MEDS: Melatonin 3 MG TABLET 6 MG PO (20:32)
[2023-03-08] MEDS: Pravastatin Sodium 20 MG TABLET PO (20:33)
[2023-03-08] MEDS: Acetaminophen 325 MG TABLET 650 MG PO (20:33)
[2023-03-08] MEDS: Aspirin Enteric Coated 81 MG TABLET.DR PO (20:33)
[2023-03-08] MEDS: Montelukast Sodium 10 MG TABLET PO (20:33)
[2023-03-09] VITALS (7 sets, daily range): BP systolic 127–145; BP diastolic 63–87; PULSE 70–88; RESP 18–20; TEMP 36.2–36.8; O2SAT 95–99
[2023-03-09] MEDS: Enoxaparin Sodium 40 MG/0.4 ML SYRINGE SUBCUT (02:13)
[2023-03-09] MEDS: Omeprazole 40 MG CAPSULE.DR PO (06:02)
[2023-03-09] MEDS: Albuterol/Iprat 2.5/0.5MG 3 ML AMPUL.NEB INHALE ×2 (07:36→14:57)
[2023-03-09] MEDS: Metoprolol Succinate ER 25 MG TAB.ER.24H PO (09:25)
[2023-03-09] MEDS: Ferrous Sulfate 324 MG TABLET.DR PO (09:25)
[2023-03-09] MEDS: PHENobarbitaL 30 MG TABLET PO (09:25)
[2023-03-09] MEDS: Folic Acid 1 MG TABLET PO (09:25)
[2023-03-09] MEDS: Furosemide 20 MG TABLET PO (09:25)
[2023-03-09] MEDS: Multivitamin TABLET 1 TAB PO (09:25)
[2023-03-09] MEDS: QUEtiapine Fumarate 50 MG TABLET PO ×2 (09:25→15:31)
[2023-03-09] MEDS: amLODIPine Besylate 5 MG TABLET PO (09:25)
[2023-03-09] MEDS: methylPREDNISolone Sod Succ 40 MG/ML VIAL IVPUSH (09:26)
[2023-03-09] MEDS: Thiamine HCL 100 MG in 0.9 % Sodium Chloride 100 ML 202 MG IV (09:26)
[2023-03-09] MEDS: 0.9 % Sodium Chloride Flush 3 ML SYRINGE IVFLUSH ×2 (09:26→15:31)
--- NOTE | 2023-03-09 13:19 | HO.PM.IMPN ---
Subjective Subjective Date of Service: 03/09/23 Interval History: seen and examined this morning follow up for alcohol withdrawal, encephalopathy Patient much more awake, alert and able to answer questions appropriately Review of Systems Review of Systems: Yes all other systems are reviewed and are negative Constitutional Constitutional: Denies chills and Denies fever(s) Cardiovascular Cardiovascular: Denies chest pain, Denies palpitations and Denies dyspnea Respiratory Respiratory: Denies cough and Denies dyspnea Gastrointestinal Gastrointestinal: Denies abdominal pain, Denies nausea and Denies vomiting Endocrine Endocrine: Denies palpitations Physical Exam Vital Signs: Vital Signs: Last Vital Signs Temp 97.6 F 03/09/23 11:23 Pulse 72 03/09/23 11:23 Resp 18 03/09/23 11:23 BP 129/68 03/09/23 11:23 Pulse Ox 99 03/09/23 11:23 O2 Del Method Room Air 03/09/23 11:23 BMI result Body Mass Index 32.9 Appearing in no acute distress lung sounds are clear to auscultation heart regular rate rhythm, clear S1, S2 positive bowel sounds, abdomen is soft, nontender neuro patient is alert x3, no focal deficits Objective Data Active Medications Acetaminophen (Acetaminophen Supp 650 Mg Supp.Rect) 650 mg [place] Q6H PRN PRN Reason: Pain, Mild (Pain Scale 1-3) Acetaminophen (Acetaminophen 325 Mg Tablet) 650 mg PO Q6H PRN PRN Reason: Pain, Mild (Pain Scale 1-3) Last Admin: 03/08/23 20:33 Dose: 650 mg Documented By: EUGENIE Albuterol Sulfate (Albuterol Sulfate 90 Mcg 8 Gm Inhaler) 2 puff INHALE Q4H PRN PRN Reason: Shortness Of Breath Or Wheezing Albuterol/Ipratropium (Albuterol/Iprat 2.5/0.5mg 3 Ml Ampul.Neb) 3 ml INHALE Q6H PRN PRN Reason: Shortness Of Breath Last Admin: 03/08/23 05:53 Dose: 3 ml Documented By: KARO Albuterol/Ipratropium (Albuterol/Iprat 2.5/0.5mg 3 Ml Ampul.Neb) 3 ml INHALE RQ4H WHILE AWAKE [facility] Last Admin: 03/09/23 11:44 Dose: Not Given Documented By: JHONNY Non-Admin Reason: Patient Asleep Amlodipine Besylate (Amlodipine Besylate 5 Mg Tablet) 5 mg PO DAILY [facility]; Protocol Last Admin: 03/09/23 09:25 Dose: 5 mg Documented By: CLYDE Aspirin (Aspirin Enteric Coated 81 Mg Tablet.) 81 mg PO BEDTIME [facility] Last Admin: 03/08/23 20:33 Dose: 81 mg Documented By: EUGENIE Enoxaparin Sodium (Enoxaparin Sodium 40 Mg/0.4 Ml Syringe) 40 mg SUBCUT Q24H [facility] Last Admin: 03/09/23 02:13 Dose: 40 mg Documented By: EUGENIE Ferrous Sulfate (Ferrous Sulfate 324 Mg Tablet.) 324 mg PO DAILY [facility] Last Admin: 03/09/23 09:25 Dose: 324 mg Documented By: CLYDE Fluticasone/Vilanterol (Fluticasone/Vilanterol 100/25 Blst.W.Dev) 1 puff INHALE RDAILY [facility] Last Admin: 03/08/23 11:09 Dose: 1 puff Documented By: CLYDE Folic Acid (Folic Acid 1 Mg Tablet) 1 mg PO DAILY [facility] Last Admin: 03/09/23 09:25 Dose: 1 mg Documented By: CLYDE Furosemide (Furosemide 20 Mg Tablet) 20 mg PO DAILY [facility]; Protocol Last Admin: 03/09/23 09:25 Dose: 20 mg Documented By: CLYDE Thiamine HCl 100 mg/ Sodium (Chloride) 101 mls @ 202 mls/hr IV DAILY [facility] Last Infusion: 03/09/23 09:56 Dose: 202 mls/hr Documented By: CLYDE Meropenem 1 gm/ Sodium (Chloride) 100 mls @ 200 mls/hr IV Q12H [facility] Last Infusion: 03/09/23 04:55 Dose: 0 mls/hr Documented By: EUGENIE Melatonin (Melatonin 3 Mg Tablet) 6 mg PO BEDTIME PRN PRN Reason: Insomnia Last Admin: 03/08/23 20:32 Dose: 6 mg Documented By: EUGENIE Methylprednisolone Sodium Succinate (Methylprednisolone Sod Succ 40 Mg/Ml Vial) 40 mg IVPUSH Q12H [facility] Last Admin: 03/09/23 09:26 Dose: 40 mg Documented By: CLYDE Metoprolol Succinate (Metoprolol Succinate Er 25 Mg Tab.Er.24h) 25 mg PO DAILY [facility]; Protocol Last Admin: 03/09/23 09:25 Dose: 25 mg Documented By: CLYDE Montelukast Sodium (Montelukast Sodium 10 Mg Tablet) 10 mg PO BEDTIME [facility] Last Admin: 03/08/23 20:33 Dose: 10 mg Documented By: EUGENIE Multivitamins/Vitamin C (Multivitamin Tablet) 1 tab PO DAILY [facility] Last Admin: 03/09/23 09:25 Dose: 1 tab Documented By: CLYDE Omeprazole (Omeprazole 40 Mg Capsule.Dr) 40 mg PO DAILY@0630 [facility] Last Admin: 03/09/23 06:02 Dose: 40 mg Documented By: EUGENIE Ondansetron HCl (Ondansetron Hcl 4 Mg/2 Ml Vial) 4 mg IVPUSH Q8H PRN PRN Reason: Nausea and Vomiting Pharmacy Consult (Consult Rx Perform Med Rec) 1 each MISCELLANE ONCE PRN PRN Reason: Consult order Pharmacy Consult (Consult Rx Etoh Phenob Im/Po) 1 each MISCELLANE ONCE PRN; Protocol PRN Reason: Consult order Pravastatin Sodium (Pravastatin Sodium 20 Mg Tablet) 20 mg PO BEDTIME [facility] Last Admin: 03/08/23 20:33 Dose: 20 mg Documented By: EUGENIE Quetiapine Fumarate (Quetiapine Fumarate 50 Mg Tablet) 50 mg PO TID [facility] Last Admin: 03/09/23 09:25 Dose: 50 mg Documented By: CLYDE Senna (Sennosides 8.6 Mg Tablet) 8.6 mg PO BID PRN PRN Reason: constipation Sodium Chloride (0.9 % Sodium Chloride Flush 3 Ml Syringe) 3 ml IVFLUSH QSHIFT [facility] Last Admin: 03/09/23 09:26 Dose: 3 ml Documented By: CLYDE Thiamine HCl (Thiamine Hcl 100 Mg Tablet) 100 mg PO DAILY [facility] Last Admin: 03/04/23 08:50 Dose: 100 mg Documented By: ANA MARÍAB Labs 03/05/23 05:31 03/05/23 05:31 Assessment and Plan (1) Alcohol use disorder, severe, dependence: Status: Acute (2) Congestive heart failure: Status: Acute (3) AMS (altered mental status): Status: Acute Plan This is a 67-year-old female with pertinent history of alcohol use disorder, cannabis use disorder, fentanyl use disorder who was brought to the emergency department by for evaluation of altered mentation. ESBL UTI on meropenem for now ID consult pending Acute toxic metabolic encephalopathy. much more awake, alert and interactive this am. Brain CT negative for acute intracranial pathology. no focal deficits appreciated renal function improving LFTs/ammonia wnl likely multifactorial related to withdrawal, sedating medication, UTI psych consult pending for capacity>PATIENT HAS CAPACITY TO MAKE MEDICAL DECISIONS polysubstance use/alcohol use disorder s/p phenobarbitol protocol HFpEF Acute on chronic no overt failure lasix 40 daily CXR with central vascular prominence follow Is&Os ECHO normal EF Acute COPD exacerbation no hypoxia solu-medrol>change to prednisone 40mg daily continue breathing treatments coag neg staph 1/2 staph capitis Hyponatremia resolved hyperkalemia resolved SAGAR resolved SCr seems to be at baseline Chronic microcytic anemia H/H stable B12, folate, iron profile wnl continue iron supplementation Bipolar disorder/schizophrenia seroquel Essential hypertension. Continue home metoprolol HLD continue statin DVT prophylaxis: Lovenox Full code attending - dr. Whitman DISPO plan for rehab Requires ongoing inpatient hospitalization for close monitoring of mentation and IV antibiotics for UTI Time Spent With Patient Time: Total time managing care of this patient today ____ minutes. Quality Stroke Does the patient have a stroke diagnosis?: No VTE Prior VTE?: No VTE Risk Level:: Medical - moderate - high VTE Device Contraindication: Treatment Not Indicated VTE Drug Contraindication: N/A - Med Ordered
--- NOTE | 2023-03-09 13:29 | MHC.CM.PN ---
CM met with Patient at bedside to discuss PT's recommendation for STR. Patient started to cry out and said no to STR; Patient wants to go home. [facility] is waiting on ID for PO vs IV ABT. CM will follow for dc planning.
--- NOTE | 2023-03-09 13:51 | MHC.CM.PN ---
CM left a detailed message for Significant Other/Juanjo at listed #, requesting a call back to discuss Patient returning home. CM awaits a return call and will continue to follow.
--- NOTE | 2023-03-09 15:35 | MHC.CM.PN ---
Per GRAIN SPOUTER/Katerine, Patient has been medically cleared for dc to home today with home PT (CM awaits a return call from [facility]err[facility] as to whether or not [facility] will do the home PT or a VNA). CM spoke with Significant Other/Juanjo at listed # and explained that Patient was seen by Psych and deemed to HAVE capacity and [facility] refuses [facility] Juanjo is aware that Patient will return home today, by [facility] at 5:30PM. CM will address IMM with Patient and provide Patient with the original and place a copy on the chart.
--- NOTE | 2023-03-09 15:53 | W.PM.IDCN ---
History of Present Illness Data of Consult Service Date: 03/09/23 Requesting physician: Katerine Devlin Primary Care Provider: MD KERRI Dawson Reason for consult: E coli infection She presents found on ground with mental status changes at home. She has h/o alcohol use disorder reported. SHe said she felt dysuria. She denies fever or chills.. Review of Systems Review of Systems: Yes Unobtainable due to mental condition PMFSH Past Medical History Medical History Acute hyponatremia Acute hyponatremia Alcohol use disorder Bipolar 1 disorder Bipolar I disorder Cannabis use disorder, moderate, dependence Chronic hyponatremia Congestive heart failure COPD (chronic obstructive pulmonary disease) Coronary artery disease Dementia Diabetes Effusion of shoulder joint, left Family history of breast cancer Hypertension Korsakoff disease Mass of joint of left shoulder Osteoarthritis Schizophrenia Shortness of breath Sleep apnea Family History Family History Sister Breast cancer, Onset Age: 40 Sister Breast cancer, Onset Age: 50 Family history: reviewed and not pertinent Surgical History Surgical History Hx of appendectomy Social History Social History Household Members: Spouse Housing: Apartment Do you presently have visiting nurse or other home services: Yes Unable to assess alcohol history related to: Unable to respond Alcohol intake: current Alcohol intake frequency: a few times a week Alcohol type: beer Patient Tobacco Use Status: Tobacco use Unknown Tobacco use type: Cigarette Cigarettes Per Day: 5 Years Smoked: 53 e-Cigarette/Vaping Use: Never Used Second Hand Smoke Exposure: Yes Substance Use Type: Marijuana Advance Directives Date on File: 10/10/20 service: No Current occupational status: unemployed, disabled and other Sexual orientation: Straight/Heterosexual Meds Allergies Allergy/AdvReac Type Severity Reaction Status Date / Time fluticasone Allergy Unknown Verified 11/25/22 17:15 [From Advair Diskus] salmeterol Allergy Unknown Verified 11/25/22 17:15 [From Advair Diskus] paroxetine [From Paxil] AdvReac Intermediate Nausea and Verified 11/25/22 17:15 Vomiting Active Medications: Current Medications Acetaminophen (Acetaminophen Supp 650 Mg Supp.Rect) 650 mg NC Q6H PRN PRN Reason: Pain, Mild (Pain Scale 1-3) Acetaminophen (Acetaminophen 325 Mg Tablet) 650 mg PO Q6H PRN PRN Reason: Pain, Mild (Pain Scale 1-3) Last Admin: 03/08/23 20:33 Dose: 650 mg Albuterol Sulfate (Albuterol Sulfate 90 Mcg 8 Gm Inhaler) 2 puff INHALE Q4H PRN PRN Reason: Shortness Of Breath Or Wheezing Albuterol/Ipratropium (Albuterol/Iprat 2.5/0.5mg 3 Ml Ampul.Neb) 3 ml INHALE Q6H PRN PRN Reason: Shortness Of Breath Last Admin: 03/08/23 05:53 Dose: 3 ml Albuterol/Ipratropium (Albuterol/Iprat 2.5/0.5mg 3 Ml Ampul.Neb) 3 ml INHALE RQ4H WHILE AWAKE [facility] Last Admin: 03/09/23 14:57 Dose: 3 ml Amlodipine Besylate (Amlodipine Besylate 5 Mg Tablet) 5 mg PO DAILY [facility]; Protocol Last Admin: 03/09/23 09:25 Dose: 5 mg Aspirin (Aspirin Enteric Coated 81 Mg Tablet.) 81 mg PO BEDTIME [facility] Last Admin: 03/08/23 20:33 Dose: 81 mg Enoxaparin Sodium (Enoxaparin Sodium 40 Mg/0.4 Ml Syringe) 40 mg SUBCUT Q24H [facility] Last Admin: 03/09/23 02:13 Dose: 40 mg Ferrous Sulfate (Ferrous Sulfate 324 Mg Tablet.) 324 mg PO DAILY [facility] Last Admin: 03/09/23 09:25 Dose: 324 mg Fluticasone/Vilanterol (Fluticasone/Vilanterol 100/25 Blst.W.Dev) 1 puff INHALE RDAILY [facility] Last Admin: 03/08/23 11:09 Dose: 1 puff Folic Acid (Folic Acid 1 Mg Tablet) 1 mg PO DAILY [facility] Last Admin: 03/09/23 09:25 Dose: 1 mg Furosemide (Furosemide 20 Mg Tablet) 20 mg PO DAILY [facility]; Protocol Last Admin: 03/09/23 09:25 Dose: 20 mg Meropenem 1 gm/ Sodium (Chloride) 100 mls @ 200 mls/hr IV Q12H [facility] Last Infusion: 03/09/23 04:55 Dose: Infused Melatonin (Melatonin 3 Mg Tablet) 6 mg PO BEDTIME PRN PRN Reason: Insomnia Last Admin: 03/08/23 20:32 Dose: 6 mg Metoprolol Succinate (Metoprolol Succinate Er 25 Mg Tab.Er.24h) 25 mg PO DAILY [facility]; Protocol Last Admin: 03/09/23 09:25 Dose: 25 mg Montelukast Sodium (Montelukast Sodium 10 Mg Tablet) 10 mg PO BEDTIME [facility] Last Admin: 03/08/23 20:33 Dose: 10 mg Multivitamins/Vitamin C (Multivitamin Tablet) 1 tab PO DAILY [facility] Last Admin: 03/09/23 09:25 Dose: 1 tab Omeprazole (Omeprazole 40 Mg Capsule.Dr) 40 mg PO DAILY@0630 [facility] Last Admin: 03/09/23 06:02 Dose: 40 mg Ondansetron HCl (Ondansetron Hcl 4 Mg/2 Ml Vial) 4 mg IVPUSH Q8H PRN PRN Reason: Nausea and Vomiting Pharmacy Consult (Consult Rx Perform Med Rec) 1 each MISCELLANE ONCE PRN PRN Reason: Consult order Pharmacy Consult (Consult Rx Etoh Phenob Im/Po) 1 each MISCELLANE ONCE PRN; Protocol PRN Reason: Consult order Pravastatin Sodium (Pravastatin Sodium 20 Mg Tablet) 20 mg PO BEDTIME [facility] Last Admin: 03/08/23 20:33 Dose: 20 mg Prednisone (Prednisone 20 Mg Tablet) 40 mg PO DAILY [facility] Stop: 03/13/23 09:01 Quetiapine Fumarate (Quetiapine Fumarate 50 Mg Tablet) 50 mg PO TID [facility] Last Admin: 03/09/23 15:31 Dose: 50 mg Senna (Sennosides 8.6 Mg Tablet) 8.6 mg PO BID PRN PRN Reason: constipation Sodium Chloride (0.9 % Sodium Chloride Flush 3 Ml Syringe) 3 ml IVFLUSH QSHIFT [facility] Last Admin: 03/09/23 15:31 Dose: 3 ml Thiamine HCl (Thiamine Hcl 100 Mg Tablet) 100 mg PO DAILY [facility] Last Admin: 03/04/23 08:50 Dose: 100 mg Home Medications Medication Instructions Recorded Confirmed Last Taken Type quetiapine 50 mg tablet 50 mg PO TID 07/26/22 03/03/23 Unknown History albuterol sulfate 90 mcg/actuation 2 puff inhalation Q4-6H PRN 11/26/22 03/03/23 Unknown History aerosol inhaler (Ventolin HFA) Shortness Of Breath Or Wheezing aspirin 81 mg tablet,delayed 1 tab PO BEDTIME 11/26/22 03/03/23 Unknown History release folic acid 1 mg tablet 1 mg PO DAILY 11/26/22 03/03/23 Unknown History metoprolol succinate 25 mg 1 tab PO DAILY 11/26/22 03/03/23 Unknown History tablet,extended release 24 hr montelukast 10 mg tablet 1 tab PO BEDTIME 11/26/22 03/03/23 Unknown History omeprazole 40 mg capsule,delayed 1 cap PO DAILY@0630 11/26/22 03/03/23 Unknown History release pravastatin 20 mg tablet 1 tab PO BEDTIME 11/26/22 03/03/23 Unknown History thiamine HCl (vitamin B1) 100 mg 1 tab PO DAILY 11/26/22 03/03/23 Unknown History tablet trazodone 50 mg tablet 1 tab PO BEDTIME PRN insomnia 11/26/22 03/03/23 Unknown History ferrous sulfate 325 mg (65 mg 325 mg PO DAILY 01/31/23 03/03/23 Unknown History iron) tablet (FeroSul) fluticasone 250 mcg-salmeterol 50 1 ea inhalation BID 01/31/23 03/03/23 Unknown History mcg/dose blistr powdr for inhalation (Advair Diskus) ondansetron HCl 4 mg tablet 4 mg PO BID PRN nausea 01/31/23 03/03/23 Unknown History sennosides 8.6 mg tablet (senna) 8.6 mg PO BID PRN constipation 01/31/23 03/03/23 Unknown History ipratropium 0.5 mg-albuterol 3 mg 3 ml inhalation Q6H PRN Shortness 03/03/23 03/03/23 Unknown History (2.5 mg base)/3 mL nebulization Of Breath soln Physical Exam Vital Signs: Vital Signs: Last Vital Signs Temp 98 F 03/09/23 14:45 Pulse 88 03/09/23 14:57 Resp 20 03/09/23 14:57 BP 145/65 H 03/09/23 14:45 Pulse Ox 99 03/09/23 14:45 O2 Del Method Room Air 03/09/23 14:45 BMI result Body Mass Index 32.9 Const: General: cooperative HEENT: Head: Yes normal to inspection Face and sinus: Yes normal facial exam Mouth: Normal oral and palatal mucosa present Teeth and gingiva: dentition normal Eyes: General: appearance normal, both eyes and all related structures Pupils: Equal, round and reactive pupils present Resp: Effort & Inspection: normal respiratory effort Cardio: Rate: regular rate Rhythm: regular rhythm GI: Palpation (GI): Soft to palpation and nontender : General: Yes no CVA tenderness Back/Spine/Pelvis: Back: no CVA tenderness Skin: General skin exam: no rashes or lesions noted Neuro: General: moves all extremities Cranial nerves: Yes Equal, round and reactive pupils present Extrem: General: Yes normal to inspection Psych: Appearance: grossly normal Results Labs 03/05/23 05:31 03/05/23 05:31 Microbiology Microbiology Results: Microbiology 03/03/23 Unknown Urine Catheterized - Dudley Catheter Urine Culture - Final Escherichia coli 03/02/23 20:38 Blood - Venous Blood Culture - Final 03/02/23 23:36 Blood - Venous Blood Culture - Final Staphylococcus capitis Assessment and Plan (1) AMS (altered mental status): Status: Acute (2) Alcohol use disorder, severe, dependence: Status: Acute (3) Acute UTI: Status: Acute She has urine with some sensitivities showing sensitivity to sulfa and nitrofurantoin, She has had encephalopathy probably related to infection,but now improved. Plan 7-10 days po Nitrofurantion or Bactrim. Follow PCP. Blood culture staph capitus is contaminant. Time Spent With Patient Time: Total time managing care of this patient today ____ minutes.
--- NOTE | 2023-03-09 16:18 | MHC.CM.PN ---
Per Monserrat @ [facility], [facility] will provide home PT (not [facility]).
--- NOTE | 2023-03-09 17:06 | PM.DS ---
DS: Providers Provider Date of Service: 03/09/23 Date of admission: 03/03/23 01:14 Primary care physician: Ryder Monique MD Consults: 03/03/23 04:12 Addiction Medicine Routine Consulting Provider: Addiction Covering Reason for consultation: substance use disorder 03/04/23 13:36 Consult to Cardiology Routine Consulting Provider: [facility] [place] [facility] Services Reason for consultation: chf Has provider been notified: No 03/08/23 07:41 Consult to Psychiatry Routine Consulting Provider: Psych Covering Reason for consultation: competency Has provider been notified: No 03/08/23 15:23 Consult to Infectious Diseases Routine Consulting Provider: Randi Pond Reason for consultation: ESBL DS: Diagnosis Discharge Diagnosis (1) AMS (altered mental status): Status: Resolved (2) Alcohol use disorder, severe, dependence: Status: Inactive (3) Acute UTI: Status: Resolved DS: Summary Hospital Course Hospital Course: History and physical as per admitting provider: This is a 67-year-old female with pertinent history of alcohol use disorder, cannabis use disorder, fentanyl use disorder who was brought to the emergency department by for evaluation of altered mentation.? As per the , patient was found at home on the ground.? Patient was altered, could not speak and could not follow any commands.? Unknown down time.? Unable to obtained history of review of systems from the patient.? History obtained from ER provider and chart review ESBL UTI Initially treated with meropenem. Bactrim for 7 days on discharge Acute toxic metabolic encephalopathy.? much more awake, alert and interactive this am. Brain CT negative for acute intracranial pathology. no focal deficits appreciated renal function improving LFTs/ammonia wnl likely multifactorial related to withdrawal, sedating medication, UTI psych consult pending for capacity>PATIENT HAS CAPACITY TO MAKE MEDICAL DECISIONS? polysubstance use/alcohol use disorder s/p phenobarbitol protocol HFpEF Acute on chronic no overt failure lasix 40 daily follow Is&Os ECHO normal EF Acute COPD exacerbation no hypoxia solu-medrol>change to prednisone 40mg daily continue breathing treatments coag neg staph 1/2 staph capitis Hyponatremia resolved hyperkalemia resolved SAGAR resolved SCr seems to be at baseline Chronic microcytic anemia? H/H stable B12, folate, iron profile wnl continue iron supplementation Bipolar disorder/schizophrenia seroquel Essential hypertension.? Continue home metoprolol HLD continue statin Time Spent with Patient Time attestation: Total time managing care of this patient today ____ minutes. Discharge coordination time: Greater than 30 minutes Quality: Safe Use of Opioids Does Pt have an Active Cancer Diagnosis on the Problem List?: No Quality: Stroke Does the patient have a stroke diagnosis?: No Physical Exam Vital Signs: Vital Signs: Last Vital Signs Temp 98 F 03/09/23 14:45 Pulse 88 03/09/23 16:01 Resp 20 03/09/23 14:57 BP 145/65 H 03/09/23 14:45 Pulse Ox 99 03/09/23 14:45 O2 Del Method Room Air 03/09/23 14:45 BMI result Body Mass Index 32.9 Appearing in no acute distress head is normocephalic atraumatic eyes pupils are PERRLA sclera is anicteric mouth throat mucous membranes are intact and moist neck is supple no lymphadenopathy, no JVD noted lung sounds are clear to auscultation heart regular rate rhythm, clear S1, S2 positive bowel sounds, abdomen is soft, nontender neuro patient is alert x3, no focal deficits DS: Data Data Completed and Pending Completed studies during hospitalization [Text1]: Procedures Detoxification Services for Substance Abuse Treatment (05/01/21) Insertion of Infusion Device into Superior Vena Cava, Percutaneous Approach (05/01/21) Discharge Plan Discharge Anticipated Discharge Date/Time: 03/08/23 15:18 Patient Disposition: Home Health Service Discharge Diagnosis: Encephalopathy Referrals: [facility] [Other] - 1 Week Name,MD Ryder [Primary Care Provider] - 1 Week Discharge Medications: New sulfamethoxazole-trimethoprim [Bactrim DS] 800-160 mg tablet 1 tab PO BID Qty: 14 0RF prednisone 10 mg tablet 40 mg PO DAILY Qty: 16 0RF Continued quetiapine 50 mg tablet 50 mg PO TID multivitamin [Daily-Cony] Tablet 1 tab PO DAILY 30 Days Qty: 30 0RF acetaminophen 650 mg tablet extended release 1 tab PO BID PRN (Reason: pain) 30 Days Qty: 60 0RF baclofen 20 mg Tablet 20 mg PO DAILY PRN (Reason: Back Pain) 30 Days Qty: 30 0RF trazodone 50 mg tablet 1 tab PO BEDTIME PRN (Reason: insomnia) omeprazole 40 mg capsule,delayed release(DR/EC) 1 cap PO DAILY@0630 montelukast 10 mg tablet 1 tab PO BEDTIME pravastatin 20 mg tablet 1 tab PO BEDTIME metoprolol succinate 25 mg tablet extended release 24 hr 1 tab PO DAILY albuterol sulfate [Ventolin HFA] 90 mcg/actuation HFA aerosol inhaler 2 puff INHALATION Q4-6H PRN (Reason: Shortness Of Breath Or Wheezing) thiamine HCl (vitamin B1) 100 mg tablet 1 tab PO DAILY aspirin 81 mg tablet,delayed release (DR/EC) 1 tab PO BEDTIME folic acid 1 mg tablet 1 mg PO DAILY fluticasone propion-salmeterol [Advair Diskus] 250-50 mcg/dose blister with device 1 ea INHALATION BID sennosides [senna] 8.6 mg tablet 8.6 mg PO BID PRN (Reason: constipation) ondansetron HCl 4 mg tablet 4 mg PO BID PRN (Reason: nausea) ferrous sulfate [FeroSul] 325 mg (65 mg iron) tablet 325 mg PO DAILY ipratropium-albuterol 0.5 mg-3 mg(2.5 mg base)/3 mL Solution For Nebulization 3 ml INHALATION Q6H PRN (Reason: Shortness Of Breath) Discharge Orders: Discharge Order (Routine); Ordered 03/09/23 Ordered By: Katerine Devlin Diet: Advance to usual diet Activity on Discharge: As tolerated Stand Alone Forms: Patient Portal Discharge page Care Plan Goals: Stop drinking alcohol Health Concerns: Encephalopathy Plan of Treatment: Follow-up with primary care provider as needed Take all medications as prescribed Assessment: See discharge summary Discharge Date/Time: 03/09/23 17:39
== END 2023-03-09 17:39 | disposition home health service (06) | DRG 689 ==
LOC: HO.ED 03-03 00:23 → HO.EDOVER 03-03 01:31 → HO.S3 03-03 13:47 → HO.EDOVER 03-03 15:09 → HO.IMC 03-03 19:23
PROVIDERS: Family Medicine; Physician Assistant; Physician Assistant Medical; Admitting Provider Student in an Organized Health Care Education/Training Program; Emergency Provider Student in an Organized Health Care Education/Training Program; PCP Internal Medicine Geriatric Medicine; Visit Provider Nurse Practitioner Acute Care
DX: N39.0 Urinary tract infection, site not specified (principal); G92.8 Other toxic encephalopathy; I50.33 Acute on chronic diastolic (congestive) heart failure; E87.1 Hypo-osmolality and hyponatremia; N17.9 Acute kidney failure, unspecified; J44.1 Chronic obstructive pulmonary disease with (acute) exacerbation; F05 Delirium due to known physiological condition; Z16.12 Extended spectrum beta lactamase (ESBL) resistance; R78.81 Bacteremia; F31.9 Bipolar disorder, unspecified; E86.1 Hypovolemia; D50.9 Iron deficiency anemia, unspecified; F19.10 Other psychoactive substance abuse, uncomplicated; E87.5 Hyperkalemia; B96.20 Unspecified Escherichia coli [E. coli] as the cause of diseases classified elsewhere; B95.7 Other staphylococcus as the cause of diseases classified elsewhere; F03.90 Unspecified dementia, unspecified severity, without behavioral disturbance, psychotic disturbance, mood disturbance, and anxiety; Z20.822 Contact with and (suspected) exposure to COVID-19; Z79.51 Long term (current) use of inhaled steroids; Z79.82 Long term (current) use of aspirin; Z79.899 Other long term (current) drug therapy
CPT/HCPCS: 36415; 36600; 70450; 71045; 72125; 80048; 80053; 80307; 81001; 81003; 82140; 82550; 82607; 82746; 82803; 82947; 83540; 83605; 83735; 83880; 84295; 84484; 85025; 85027; 85610; 86704; 86706; 86803; 87040; 87077; 87086; 87088; 87186; 87205; 87340; 87389; 87635; 92526; 92610; 93005; 93306; 94640; 97162; 97530; 99285; J0696; J1200; J1650; J1940; J2060; J2185; J2250; J2270; J2560; J2920; J3411

== ENCOUNTER 2023-03-22 10:08 | Inpatient (IN) | payer OTHER, SELFPAY ==
[2023-03-22] VITALS (8 sets, daily range): BP systolic 122–210; BP diastolic 67–124; PULSE 74–93; RESP 16–18; TEMP 36.7–37.1; O2SAT 95–100; BMI 36.4
--- NOTE | ~2023-03-22 | XR_ITS ---
EXAMINATION: XR CHEST CLINICAL INFORMATION: Shortness of breath COMPARISON: Previous chest x-ray was recent 03/13/2023 TECHNIQUE: Frontal view of the chest was obtained. FINDINGS: The cardiac and mediastinal contours are stable. The lungs are clear. No pleural effusion or pneumothorax. Degenerative changes of the spine. Severe arthritis at the right shoulder joint. XR/XR chest 1V IMPRESSION: No evidence for acute disease in the chest.
--- NOTE | 2023-03-22 10:22 | PC.NURSE ---
Alert and oriented. arrived from home with complaints of sob and leg pain. 97% on 2 liters 02. Audible wheezing heard. Patient states she smokes and it makes the wheezing and sob worse. Bilateral feet with 2 plus pitting edema. Patient states this edema has been getting worse over the last few days. nsr on monitor. VSS no sob at rest observed. denies headache or chest pain
--- NOTE | 2023-03-22 10:25 | ED_ITS ---
HPI - General Adult General Chief complaint: General Medical Stated complaint: WHEEZING, BLE SWELLING, SOB Time Seen by Provider: 03/22/23 10:15 Source: patient Mode of arrival: EMS Limitations: no limitations History of Present Illness HPI narrative: 67 year old female with history of asthma, COPD, CHF, and diabetes, presents today via EMS with 2 days of lower extremity swelling. States that this has happened in the past however cannot recall what diagnosis she's received for this. Additionally she complains of some shortness of breath. Not usually on home O2. Related Data Home Medications Medication Instructions Recorded Confirmed quetiapine 50 mg tablet 50 mg PO TID 07/26/22 03/03/23 albuterol sulfate 90 mcg/actuation 2 puff inhalation Q4-6H PRN 11/26/22 03/03/23 aerosol inhaler (Ventolin HFA) Shortness Of Breath Or Wheezing aspirin 81 mg tablet,delayed 1 tab PO BEDTIME 11/26/22 03/03/23 release folic acid 1 mg tablet 1 mg PO DAILY 11/26/22 03/03/23 metoprolol succinate 25 mg 1 tab PO DAILY 11/26/22 03/03/23 tablet,extended release 24 hr montelukast 10 mg tablet 1 tab PO BEDTIME 11/26/22 03/03/23 omeprazole 40 mg capsule,delayed 1 cap PO DAILY@0630 11/26/22 03/03/23 release pravastatin 20 mg tablet 1 tab PO BEDTIME 11/26/22 03/03/23 thiamine HCl (vitamin B1) 100 mg 1 tab PO DAILY 11/26/22 03/03/23 tablet trazodone 50 mg tablet 1 tab PO BEDTIME PRN insomnia 11/26/22 03/03/23 ferrous sulfate 325 mg (65 mg 325 mg PO DAILY 01/31/23 03/03/23 iron) tablet (FeroSul) fluticasone 250 mcg-salmeterol 50 1 ea inhalation BID 01/31/23 03/03/23 mcg/dose blistr powdr for inhalation (Advair Diskus) ondansetron HCl 4 mg tablet 4 mg PO BID PRN nausea 01/31/23 03/03/23 sennosides 8.6 mg tablet (senna) 8.6 mg PO BID PRN constipation 01/31/23 03/03/23 ipratropium 0.5 mg-albuterol 3 mg 3 ml inhalation Q6H PRN Shortness 03/03/23 03/03/23 (2.5 mg base)/3 mL nebulization Of Breath soln Previous Rx's Medication Instructions Recorded acetaminophen 650 mg 1 tab PO BID PRN pain 30 days #60 04/29/22 tablet,extended release tabs baclofen 20 mg tablet 20 mg PO DAILY PRN Back Pain 30 04/29/22 days #30 tabs multivitamin (Daily-Cony tablet) 1 tab PO DAILY 30 days #30 tabs 04/29/22 prednisone 10 mg tablet 40 mg PO DAILY #16 tabs 03/09/23 sulfamethoxazole 800 1 tab PO BID #14 tabs 03/09/23 mg-trimethoprim 160 mg tablet (Bactrim DS) Allergies Allergy/AdvReac Type Severity Reaction Status Date / Time fluticasone Allergy Unknown Verified 11/25/22 17:15 [From Advair Diskus] salmeterol Allergy Unknown Verified 11/25/22 17:15 [From Advair Diskus] paroxetine [From Paxil] AdvReac Intermediate Nausea and Verified 11/25/22 17:15 Vomiting Review of Systems Review of Systems: Yes all other systems are reviewed and are negative [facility] Past Medical History Medical History Acute hyponatremia Acute hyponatremia Alcohol use disorder Alcohol use disorder, severe, dependence Bipolar 1 disorder Bipolar I disorder Cannabis use disorder, moderate, dependence Chronic hyponatremia Congestive heart failure COPD (chronic obstructive pulmonary disease) Coronary artery disease Dementia Diabetes Effusion of shoulder joint, left Fall Family history of breast cancer Hypertension Korsakoff disease Mass of joint of left shoulder Osteoarthritis Schizophrenia Shortness of breath Sleep apnea Surgical History Hx of appendectomy Family History Family History Sister Breast cancer, Onset Age: 40 Sister Breast cancer, Onset Age: 50 Social History Social History Household Members: Spouse Housing: Apartment Do you presently have visiting nurse or other home services: Yes Unable to assess alcohol history related to: Unable to respond Alcohol intake: current Alcohol intake frequency: a few times a week Alcohol type: beer Patient Tobacco Use Status: Tobacco use Unknown Tobacco use type: Cigarette Cigarettes Per Day: 5 Years Smoked: 53 Smoked in Last 30 Days: Yes e-Cigarette/Vaping Use: Never Used Second Hand Smoke Exposure: Yes Use of substances other than those prescribed or required for medical reasons: Yes Substance Use Type: Marijuana Substance Use Frequency: Chronic Longstanding Advance Directives: Yes Advance Directives on File: Yes Advance Directives Date on File: 10/10/20 service: No Current occupational status: unemployed, disabled and other Sexual orientation: Straight/Heterosexual Physical Exam ED Vital Signs: Vital Signs - 24 hr 03/22/23 10:15 03/22/23 10:19 03/22/23 10:42 Temperature 98.6 F 98.1 F Pulse Rate 80 79 74 Respiratory Rate 18 18 18 Blood Pressure 122/69 122/69 Pulse Oximetry 99 98 Oxygen Delivery Method Nasal Cannula Room Air Oxygen Flow Rate 03/22/23 12:04 03/22/23 14:26 Temperature Pulse Rate 93 80 Respiratory Rate 16 18 Blood Pressure 148/85 H 143/67 H Pulse Oximetry 100 95 Oxygen Delivery Method Nasal Cannula Room Air Oxygen Flow Rate 1 BMI result Body Mass Index 36.4 Const Other: obese, slightly short of breath General: no acute distress; No diaphoretic Nutritional Appearance: obese Orientation/consciousness: oriented to person and patient oriented x3 Limitations: no limitations HENMT Head: Yes normal to inspection Ears: external ears normal General nose exam: Normal external nose present Mouth: Normal oral and palatal mucosa present and oropharynx normal Throat: Yes posterior oropharynx normal Eyes General: appearance normal, both eyes and all related structures Neck Neck: Yes normal visual inspection Chest Chest palpation & inspection: normal inspection of the chest Resp Other: +difuse wheezes bilaterally, no rales Effort & Inspection: able to speak in complete sentences, no nasal flaring, no pursed lip breathing, no respiratory distress and no retractions Cardio Jugular venous distension: no JVD Rate: regular rate Rhythm: regular rhythm Heart sounds: S1 normal heart sound present and S2 normal heart sound present GI Inspection: Yes normal to inspection Palpation (GI): Soft to palpation, nontender and No hepatosplenomegaly present Auscultation: normal bowel sounds General: Yes no CVA tenderness Back/Spine/Pelvis Back: no CVA tenderness Skin General skin exam: no rashes or lesions noted Neuro General: oriented to person and patient oriented x3 Cranial nerves: Yes CN's II-XII intact bilaterally Motor exam (neuro): 5/5 motor strength present throughout Extrem Other: 3+ pitting edema to bilateral lower extremities, neurovascularly intact distally General: Yes no calf tenderness Psych Appearance: grossly normal Course Reevaluation(s) Reevaluation #1: 67 yo female with COPD presents with worsening edema and wheezing. Significant findings are sodium of 120, negative chest xray, negative bnp. No evidence of heart failure. Will admit for hyponatremia. Time: 15:21 Medications Administered Discontinued Medications Generic Name Dose Route Start Last Admin Trade Name Freq PRN Reason Stop Dose Admin Albuterol/Ipratropium 3 ml 03/22/23 10:29 03/22/23 10:42 Albuterol/Iprat 2.5/0.5mg 3 Ml Ampul.Neb INHALE 03/22/23 10:30 3 ml ONCE ONE Administration Medical Decision Making Differential Diagnosis Differential Diagnoses: The differential diagnosis associated with the presentation includes (CHF, COPD, edema, liver failure, renal failure were all considered.) Admission/Observation Consideration of admission/observation: Escalation of care including admission/observation considered (67 yo female with COPD presents with worsening SOB and edema was considered for admission upon arrival) Consult Healthcare Provider Management of the patient was discussed with: Hospitalist (dr. hagen) Lab Data MDM Lab Attestation statement: I reviewed the patient's lab results. Notable findings were sodium of 122 and bnp 51 03/22/23 11:25 03/22/23 11:10 Labs: Lab Results 03/22/23 03/22/23 03/22/23 Range/Units 11:10 11:10 11:10 WBC (4.8-10.8) X10*3/uL RBC (4.20-5.50) X10*6/uL Hgb (12.0-16.0) g/dl Hct (37.0-47.0) % MCV (80.0-98.0) fL MCH (27.0-33.0) pg MCHC (31.0-35.0) g/dl RDW (11.0-16.0) % Plt Count (160-400) X10*3/uL MPV (9.4-12.3) fL Immature Gran % (Auto) (0.0-0.4) % Neut % (Auto) (45-73) % Lymph % (Auto) (20-40) % [place] % (Auto) (2-11) % Eos % (Auto) (0-4) % Baso % (Auto) (0-2) % Lymph # (Auto) (1.2-4.9) X10*3/uL [place] # (Auto) (0.1-1.2) X10*3/uL Eos # (Auto) (0.0-0.4) X10*3/uL Baso # (Auto) (0.0-0.2) X10*3/uL Abs Immat Gran (auto) (0.00-0.03) X10*3/uL Absolute Neuts (auto) (2.0-8.3) x10*3/uL Absolute Nucleated RBC (0.0-0.012) X10*3/uL Nucleated RBC % (auto) (0.0-0.2) /100WBC Sodium 122 L (135-145) mmol/L Potassium 4.6 (3.3-5.1) mmol/L Chloride 92 L (96-108) mmol/L Carbon Dioxide 20 L (22-29) mmol/L Anion Gap 15 (12-20) BUN 11 (9-16) mg/dL Creatinine 0.83 (0.5-1.4) mg/dL Estim Creat Clear Calc 69.3 Estimated GFR > 60 POC Glucose (60-115) mg/dL Random Glucose 107 (60-115) mg/dL Calcium 8.7 D (8.4-10.2) mg/dL Total Bilirubin 0.4 (0.0-1.0) mg/dL Direct Bilirubin 0.2 (0.0-0.5) mg/dL AST 21 (5-31) U/L ALT 10 (0-31) U/L Alkaline Phosphatase 77 (39-117) U/L Troponin I High Sens < 2.7 (<3.5-17.0) ng/L B-Natriuretic Peptide 51 (<100) pg/mL Total Protein 5.9 L (6.5-8.0) g/dL Albumin 3.1 L (3.5-5.0) g/dL Urine Color Urine Appearance Urine pH (5.0-9.0) Ur Specific [place] (1.005-1.025) Urine Protein (Neg-Trace) mg/dL Urine Glucose (UA) (Negative) mg/dL Urine Ketones (Negative) mg/dL Urine Blood (Negative) Urine Nitrite (Negative) Ur Leukocyte Esterase (Negative) Urine RBC (0-2) /HPF Urine WBC (0-5) /HPF Ur Squamous Epith Cells (0-2) /HPF Urine Bacteria (None Seen) Hyaline Casts (0-2) /LPF 03/22/23 03/22/23 03/22/23 Range/Units 11:25 12:12 13:47 WBC 5.8 (4.8-10.8) X10*3/uL RBC 3.74 L (4.20-5.50) X10*6/uL Hgb 10.1 L (12.0-16.0) g/dl Hct 31.0 L (37.0-47.0) % MCV 82.9 (80.0-98.0) fL MCH 27.0 (27.0-33.0) pg MCHC 32.6 (31.0-35.0) g/dl RDW 23.4 H (11.0-16.0) % Plt Count 277 (160-400) X10*3/uL MPV 8.5 L (9.4-12.3) fL Immature Gran % (Auto) 2.4 H (0.0-0.4) % Neut % (Auto) 68.2 (45-73) % Lymph % (Auto) 18.7 L (20-40) % [place] % (Auto) 10.4 (2-11) % Eos % (Auto) 0.0 (0-4) % Baso % (Auto) 0.3 (0-2) % Lymph # (Auto) 1.1 L (1.2-4.9) X10*3/uL [place] # (Auto) 0.6 (0.1-1.2) X10*3/uL Eos # (Auto) 0.0 (0.0-0.4) X10*3/uL Baso # (Auto) 0.0 (0.0-0.2) X10*3/uL Abs Immat Gran (auto) 0.14 H (0.00-0.03) X10*3/uL Absolute Neuts (auto) 3.9 (2.0-8.3) x10*3/uL Absolute Nucleated RBC 0.000 (0.0-0.012) X10*3/uL Nucleated RBC % (auto) 0.0 (0.0-0.2) /100WBC Sodium (135-145) mmol/L Potassium (3.3-5.1) mmol/L Chloride (96-108) mmol/L Carbon Dioxide (22-29) mmol/L Anion Gap (12-20) BUN (9-16) mg/dL Creatinine (0.5-1.4) mg/dL Estim Creat Clear Calc Estimated GFR POC Glucose 94 (60-115) mg/dL Random Glucose (60-115) mg/dL Calcium (8.4-10.2) mg/dL Total Bilirubin (0.0-1.0) mg/dL Direct Bilirubin (0.0-0.5) mg/dL AST (5-31) U/L ALT (0-31) U/L Alkaline Phosphatase (39-117) U/L Troponin I High Sens (<3.5-17.0) ng/L B-Natriuretic Peptide (<100) pg/mL Total Protein (6.5-8.0) g/dL Albumin (3.5-5.0) g/dL Urine Color Yellow Urine Appearance Clear Urine pH 6.0 (5.0-9.0) Ur Specific [place] <= 1.005 (1.005-1.025) Urine Protein Negative (Neg-Trace) mg/dL Urine Glucose (UA) Negative (Negative) mg/dL Urine Ketones Negative (Negative) mg/dL Urine Blood Trace H (Negative) Urine Nitrite Negative (Negative) Ur Leukocyte Esterase Trace H (Negative) Urine RBC 3-5 H (0-2) /HPF Urine WBC 0-5 (0-5) /HPF Ur Squamous Epith Cells 0-2 (0-2) /HPF Urine Bacteria 2+ (None Seen) Hyaline Casts 0-2 (0-2) /LPF Independent Interpretation I performed an independent interpretation of an: EKG (sinus 80, no ST or T wave changes) and Plain X-Ray (CXR: no edema, no infiltrate) Chronic Conditions Patient?s care impacted by: Hypertension and Other (COPD) Discharge Plan Discharge Clinical Impression: Acute hyponatremia, COPD (chronic obstructive pulmonary disease), Edema Patient Disposition: Admitted As Inpatient Prescriptions: No Action quetiapine 50 mg tablet 50 mg PO TID multivitamin [Daily-Cony] Tablet 1 tab PO DAILY 30 Days Qty: 30 0RF acetaminophen 650 mg tablet extended release 1 tab PO BID PRN (Reason: pain) 30 Days Qty: 60 0RF baclofen 20 mg Tablet 20 mg PO DAILY PRN (Reason: Back Pain) 30 Days Qty: 30 0RF trazodone 50 mg tablet 1 tab PO BEDTIME PRN (Reason: insomnia) omeprazole 40 mg capsule,delayed release(DR/EC) 1 cap PO DAILY@0630 montelukast 10 mg tablet 1 tab PO BEDTIME pravastatin 20 mg tablet 1 tab PO BEDTIME metoprolol succinate 25 mg tablet extended release 24 hr 1 tab PO DAILY albuterol sulfate [Ventolin HFA] 90 mcg/actuation HFA aerosol inhaler 2 puff INHALATION Q4-6H PRN (Reason: Shortness Of Breath Or Wheezing) thiamine HCl (vitamin B1) 100 mg tablet 1 tab PO DAILY aspirin 81 mg tablet,delayed release (DR/EC) 1 tab PO BEDTIME folic acid 1 mg tablet 1 mg PO DAILY fluticasone propion-salmeterol [Advair Diskus] 250-50 mcg/dose blister with device 1 ea INHALATION BID sennosides [senna] 8.6 mg tablet 8.6 mg PO BID PRN (Reason: constipation) ondansetron HCl 4 mg tablet 4 mg PO BID PRN (Reason: nausea) ferrous sulfate [FeroSul] 325 mg (65 mg iron) tablet 325 mg PO DAILY ipratropium-albuterol 0.5 mg-3 mg(2.5 mg base)/3 mL Solution For Nebulization 3 ml INHALATION Q6H PRN (Reason: Shortness Of Breath) sulfamethoxazole-trimethoprim [Bactrim DS] 800-160 mg tablet 1 tab PO BID Qty: 14 0RF prednisone 10 mg tablet 40 mg PO DAILY Qty: 16 0RF
--- NOTE | 2023-03-22 10:28 | ECG_ITS ---
Test Reason : wheezing Blood Pressure : / mmHG Vent. Rate : 080 BPM Atrial Rate : 080 BPM P-R Int : 150 ms QRS Dur : 094 ms QT Int : 376 ms P-R-T Axes : 069 -13 034 degrees QTc Int : 433 ms Normal sinus rhythm with sinus arrhythmia Septal infarct (cited on or before 02-MAR-2023) Abnormal ECG When compared with ECG of 02-MAR-2023 20:33, No significant change was found Referred By: Rao Mandujano Electronically Signed By:LYNDA GLEZ
[2023-03-22] MEDS: Albuterol/Iprat 2.5/0.5MG 3 ML AMPUL.NEB INHALE ×2 (10:42→17:49)
[2023-03-22 11:29] LABS: Basophils Percent Auto 0.3 % (0-2); Hemoglobin 10.1 g/dl (12.0-16.0); Imm Gran Abs Auto 0.14 X10*3/uL (0.00-0.03); Imm Gran Pct Auto 2.4 % (0.0-0.4); Lymphocytes Absolute Auto 1.1 X10*3/uL (1.2-4.9); Lymphocytes Percent Auto 18.7 % (20-40); Mean Corpuscular HGB Conc 32.6 g/dl (31.0-35.0); Mean Corpuscular Volume 82.9 fL (80.0-98.0); Mean Platelet Volume 8.5 fL (9.4-12.3); Monocytes Absolute Auto 0.6 X10*3/uL (0.1-1.2); Monocytes Percent Auto 10.4 % (2-11); Neutrophils Absolute Auto 3.9 x10*3/uL (2.0-8.3); Neutrophils Percent Auto 68.2 % (45-73); Platelet Count 277 X10*3/uL (160-400); Red Blood Count 3.74 X10*6/uL (4.20-5.50); Red Cell Distribution Width 23.4 % (11.0-16.0); White Blood Count 5.8 X10*3/uL (4.8-10.8)
[2023-03-22 11:34] LABS: Alanine Aminotransferase 10 U/L (0-31); Albumin Level 3.1 g/dL (3.5-5.0); Alkaline Phosphatase 77 U/L (39-117); Anion Gap 15 (12-20); Aspartate Amino Transferase 21 U/L (5-31); Bilirubin Direct 0.2 mg/dL (0.0-0.5); Bilirubin Total 0.4 mg/dL (0.0-1.0); Blood Urea Nitrogen 11 mg/dL (9-16); Calcium 8.7 mg/dL (8.4-10.2); Chloride 92 mmol/L (96-108); Creatinine Clr Calc Pharmacy 69.3; Estimated Glomerular Filt Rate > 60; Glucose Random 107 mg/dL (60-115); Potassium 4.6 mmol/L (3.3-5.1); Sodium 122 mmol/L (135-145); Total Protein 5.9 g/dL (6.5-8.0)
[2023-03-22 11:46] LABS: Carbon Dioxide 20 mmol/L (22-29); Troponin-I High Sensitivity < 2.7 ng/L (<3.5-17.0)
[2023-03-22 12:29] LABS: Appearance Urine Clear; Color Urine Yellow; Glucose Urine UA Negative (Negative); Leukocyte Esterase Urine Trace (Negative); Nitrite Urine Negative (Negative); Specific Gravity - Urine <= 1.005 (1.005-1.025); UMIC TRIGGER UACC YES; Urine Blood Trace (Negative); Urine Ketones Negative (Negative); Urine Protein Negative (Neg-Trace)
[2023-03-22 12:31] LABS: Bacteria Urine 2+ (None Seen); Hyaline Casts Urine 0-2 /LPF (0-2); Squamous Epithelial Cell Urine 0-2 /HPF (0-2); WBC Urine 0-5 /HPF (0-5)
[2023-03-22 13:03] LABS: B Type Natriuretic Peptide 51 pg/mL (<100)
--- NOTE | 2023-03-22 13:43 | PC.NURSE ---
Patient reports feeling better, wheezing no longer heard.
[2023-03-22 13:57] LABS: Glucose, Whole Blood 94 mg/dL (60-115)
--- NOTE | 2023-03-22 16:02 | P.HPHOSP_ITS ---
The patient was seen and evaluated with Katerine Devlin NP. I agree with her note, assessment and plan with the following. In summary, 67-year-old woman admitted with hyponatremia and lower extremity edema and found to be in acute hypernatremia. Urine electrolytes water restriction overnight monitor Na closely, follow BMP Rest of evaluations by OVERNIGHT CAREGIVER note. History of Present Illness Date of Service: 03/22/23 Chief Complaint: LE swelling 67-year-old woman with history of COPD, CHF, diabetes, alcohol abuse presents with lower extremity edema that she reports has been ongoing over the last 2 days. She denies any other symptoms including chest pain, shortness breath, nausea, vomiting, diarrhea, recent illness, sick contacts. She was recently discharged from [facility] on 03/09/2023 after being treated for ESBL UTI, acute toxic metabolic encephalopathy and acute on chronic congestive heart failure. Reports that she drinks 6 beers a day. In the ER, chest x-ray negative for consolidation or effusion, BNP 51 no hypoxia or leukocytosis or fever noted. Sodium of 122. She was given a dose of albuterol in the ER. She will be admitted for further management and treatment of acute hyponatremia. Review of Systems Review of Systems: Denies any recent fever chills or decrease in appetite respiratory denies any shortness of breath coverage production cardiovascular denies chest pain, +2 lower extremity pitting edema gastrointestinal denies any dysphagia abdominal pain nausea vomiting or diarrhea genitourinary denies any dysuria frequency or hematuria musculoskeletal denies any joint pain or swelling neuropsych denies any weakness or seizures all other systems reviewed are negative [facility] Medical History (Updated 03/22/23 @ 16:04 by Katerine Devlin NP) Alcohol use disorder Bipolar 1 disorder Cannabis use disorder, moderate, dependence Chronic hyponatremia Congestive heart failure COPD (chronic obstructive pulmonary disease) Coronary artery disease Dementia Diabetes Effusion of shoulder joint, left Hypertension Korsakoff disease Mass of joint of left shoulder Osteoarthritis Schizophrenia Sleep apnea Family History Sister Breast cancer, Onset Age: 40 Sister Breast cancer, Onset Age: 50 Surgical History Hx of appendectomy Social History (Updated 03/22/23 @ 16:04 by Katerine Devlin NP) Household Members: Spouse Housing: Apartment Do you presently have visiting nurse or other home services: Yes Alcohol intake: current Alcohol intake frequency: 3 or more drinks per day Alcohol type: beer Patient Tobacco Use Status: Tobacco use Unknown Tobacco use type: Cigarette Cigarettes Per Day: 5 Years Smoked: 53 e-Cigarette/Vaping Use: Never Used Second Hand Smoke Exposure: Yes Substance Use Type: Marijuana Advance Directives Date on File: 10/10/20 service: No Current occupational status: unemployed, disabled and other Sexual orientation: Straight/Heterosexual Meds Allergies Allergy/AdvReac Type Severity Reaction Status Date / Time fluticasone Allergy Unknown Verified 11/25/22 17:15 [From Advair Diskus] salmeterol Allergy Unknown Verified 11/25/22 17:15 [From Advair Diskus] paroxetine [From Paxil] AdvReac Intermediate Nausea and Verified 11/25/22 17:15 Vomiting Active Medications: Current Medications Pharmacy Consult (Consult Rx Perform Med Rec) 1 each MISCELLANE ONCE PRN PRN Reason: Consult order Home Medications Medication Instructions Recorded Confirmed Last Taken Type quetiapine 50 mg tablet 50 mg PO TID 07/26/22 03/22/23 Unknown History albuterol sulfate 90 mcg/actuation 2 puff inhalation Q4-6H PRN 11/26/22 03/22/23 Unknown History aerosol inhaler (Ventolin HFA) Shortness Of Breath Or Wheezing aspirin 81 mg tablet,delayed 1 tab PO BEDTIME 11/26/22 03/22/23 Unknown History release folic acid 1 mg tablet 1 mg PO DAILY 11/26/22 03/22/23 Unknown History metoprolol succinate 25 mg 1 tab PO DAILY 11/26/22 03/22/23 Unknown History tablet,extended release 24 hr montelukast 10 mg tablet 1 tab PO BEDTIME 11/26/22 03/22/23 Unknown History omeprazole 40 mg capsule,delayed 1 cap PO DAILY@0630 11/26/22 03/22/23 Unknown History release pravastatin 20 mg tablet 1 tab PO BEDTIME 11/26/22 03/22/23 Unknown History thiamine HCl (vitamin B1) 100 mg 1 tab PO DAILY 11/26/22 03/22/23 Unknown Hi story tablet trazodone 50 mg tablet 1 tab PO BEDTIME PRN insomnia 11/26/22 03/22/23 Unknown History ferrous sulfate 325 mg (65 mg 325 mg PO DAILY 01/31/23 03/22/23 Unknown History iron) tablet (FeroSul) fluticasone 250 mcg-salmeterol 50 1 ea inhalation BID 01/31/23 03/22/23 Unknown History mcg/dose blistr powdr for inhalation (Advair Diskus) ondansetron HCl 4 mg tablet 4 mg PO BID PRN nausea 01/31/23 03/22/23 Unknown History sennosides 8.6 mg tablet (senna) 8.6 mg PO BID PRN constipation 01/31/23 03/22/23 Unknown History ipratropium 0.5 mg-albuterol 3 mg 3 ml inhalation Q6H 03/03/23 03/22/23 Unknown History (2.5 mg base)/3 mL nebulization soln Physical Exam Vital Signs and Narrative: Vital Signs: Last Vital Signs Temp 98.1 F 03/22/23 10:19 Pulse 75 03/22/23 15:44 Resp 18 03/22/23 15:44 BP 139/75 03/22/23 15:44 Pulse Ox 98 03/22/23 15:44 O2 Del Method Room Air 03/22/23 15:44 O2 Flow Rate 1 03/22/23 12:04 Oxygen Flow Rate 2 03/22/23 10:15 BMI result Body Mass Index 36.4 Results Labs 03/22/23 11:25 03/22/23 11:10 Labs: Laboratory Results - last 24 hr 03/22/23 03/22/23 03/22/23 11:10 11:10 11:10 MCV MCH MCHC RDW Plt Count MPV Immature Gran % (Auto) Neut % (Auto) Lymph % (Auto) [place] % (Auto) Eos % (Auto) Baso % (Auto) Lymph # (Auto) [place] # (Auto) Eos # (Auto) Baso # (Auto) Abs Immat Gran (auto) Absolute Neuts (auto) Absolute Nucleated RBC Nucleated RBC % (auto) Anion Gap 15 Estim Creat Clear Calc 69.3 Estimated GFR > 60 POC Glucose Random Glucose 107 Calcium 8.7 D Total Bilirubin 0.4 Direct Bilirubin 0.2 AST 21 ALT 10 Alkaline Phosphatase 77 Troponin I High Sens < 2.7 B-Natriuretic Peptide 51 Total Protein 5.9 L Albumin 3.1 L Urine Color Urine Appearance Urine pH Ur Specific [place] Urine Protein Urine Glucose (UA) Urine Ketones Urine Blood Urine Nitrite Ur Leukocyte Esterase Urine RBC Urine WBC Ur Squamous Epith Cells Urine Bacteria Hyaline Casts 03/22/23 03/22/23 03/22/23 11:25 12:12 13:47 MCV 82.9 MCH 27.0 MCHC 32.6 RDW 23.4 H Plt Count 277 MPV 8.5 L Immature Gran % (Auto) 2.4 H Neut % (Auto) 68.2 Lymph % (Auto) 18.7 L [place] % (Auto) 10.4 Eos % (Auto) 0.0 Baso % (Auto) 0.3 Lymph # (Auto) 1.1 L [place] # (Auto) 0.6 Eos # (Auto) 0.0 Baso # (Auto) 0.0 Abs Immat Gran (auto) 0.14 H Absolute Neuts (auto) 3.9 Absolute Nucleated RBC 0.000 Nucleated RBC % (auto) 0.0 Anion Gap Estim Creat Clear Calc Estimated GFR POC Glucose 94 Random Glucose Calcium Total Bilirubin Direct Bilirubin AST ALT Alkaline Phosphatase Troponin I High Sens B-Natriuretic Peptide Total Protein Albumin Urine Color Yellow Urine Appearance Clear Urine pH 6.0 Ur Specific [place] <= 1.005 Urine Protein Negative Urine Glucose (UA) Negative Urine Ketones Negative Urine Blood Trace H Urine Nitrite Negative Ur Leukocyte Esterase Trace H Urine RBC 3-5 H Urine WBC 0-5 Ur Squamous Epith Cells 0-2 Urine Bacteria 2+ Hyaline Casts 0-2 Imaging Radiologist's Impressions: Impressions Chest X-Ray 03/22/23 10:43 IMPRESSION: No evidence for acute disease in the chest. Assessment and Plan (1) Acute hyponatremia: Status: Acute Plan 67-year-old woman admitted with hyponatremia and lower extremity edema Acute hypernatremia Likely secondary to alcohol abuse Check urine studies 1 L fluid restriction Nephrology consultation Check sodium every 6 hours Lower extremity edema Does not appear to be in acute heart failure, BNP 51 Use James stockings or Navdeep wraps Chronic anemia Continue iron supplementation COPD No exacerbation As needed DuoNebs, cotinue all other home inhalors Mental health Continue home medications Hyperlipidemia Continue statin GERD Continue PPI DVT prophylaxis with heparin Attending Dr. Burnham Full code Patient requires 2 inpatient midnights for treatment of acute hyponatremia kwabena dee secondary to alcohol abuse that requires close monitoring and specialty consultation Time Spent With Patient Time: Total time managing care of this patient today ____ minutes. Quality Stroke Does the patient have a stroke diagnosis?: No VTE Prior VTE?: No VTE Risk Level:: Medical - moderate - high VTE Device Contraindication: N/A - Device Ordered VTE Drug Contraindication: N/A - Med Ordered
--- NOTE | 2023-03-22 16:08 | PHA.MEDREC ---
Pharmacy Consult ? Medication Reconciliation Pharmacy has completed the medication reconciliation. Patient gets medboxes from [facility]. Received list of medications from [facility]. Katherine Irby, JavierD
[2023-03-22 16:13] LABS: Anion Gap 10 (12-20); Blood Urea Nitrogen 10 mg/dL (9-16); Calcium 8.6 mg/dL (8.4-10.2); Carbon Dioxide 23 mmol/L (22-29); Chloride 95 mmol/L (96-108); Creatinine Clr Calc Pharmacy 75.7; Estimated Glomerular Filt Rate > 60; Glucose Random 93 mg/dL (60-115); Potassium 4.4 mmol/L (3.3-5.1); Sodium 124 mmol/L (135-145)
[2023-03-22] MEDS: Heparin Sodium,Porcine 5,000 UNIT/ML VIAL 5000 UNIT SUBCUT (16:38)
--- NOTE | 2023-03-22 16:39 | PC.NURSE ---
Alert and oriented. aware of plan to be admitted for hyponatermia. resting comfortably in bed watching t.v.
--- NOTE | 2023-03-22 16:48 | MHC.EDTECH ---
Patients depend wet. Wiped patient, put purewick, and dry depend. Boost patient up with another tech. Gave patient warm blanket. Also wiped patients feet and put socks on feet.
--- NOTE | 2023-03-22 17:23 | PC.NURSE ---
Report given to accepting unit, patient aware of transfer.
--- NOTE | 2023-03-22 17:59 | PC.NURSE ---
Updraft treatment started by respiratory. Patient declined treatment, respiratory aware.
[2023-03-22 18:24] LABS: Glucose, Whole Blood 94 mg/dL (60-115)
[2023-03-22] MEDS: Aspirin Enteric Coated 81 MG TABLET.DR PO (20:46)
[2023-03-22] MEDS: Pravastatin Sodium 20 MG TABLET PO (20:47)
[2023-03-22] MEDS: Urea 15 GM POWDER PO (20:47)
[2023-03-22] MEDS: QUEtiapine Fumarate 50 MG TABLET PO (20:47)
[2023-03-22] MEDS: Montelukast Sodium 10 MG TABLET PO (20:47)
[2023-03-22 21:07] LABS: Glucose, Whole Blood 92 mg/dL (60-115)
[2023-03-22 23:01] LABS: Sodium 127 mmol/L (135-145)
[2023-03-22] MEDS: Baclofen 20 MG TABLET PO (23:57)
[2023-03-22] MEDS: traZODone HCL 50 MG TABLET PO (23:57)
[2023-03-23 00:23] VITALS: PULSE 88; RESP 18; O2SAT 95
[2023-03-23] MEDS: Albuterol/Iprat 2.5/0.5MG 3 ML AMPUL.NEB INHALE ×2 (00:23→08:06)
[2023-03-23] MEDS: Acetaminophen 325 MG TABLET 650 MG PO ×2 (02:58→13:03)
[2023-03-23 03:00] VITALS: BP 170/71; PULSE 96; RESP 20; TEMP 36.7; O2SAT 98
[2023-03-23] MEDS: Heparin Sodium,Porcine 5,000 UNIT/ML VIAL 5000 UNIT SUBCUT (04:14)
[2023-03-23 05:18] LABS: MANUAL DIFF FLAG NO
[2023-03-23 05:21] LABS: Basophils Percent Auto 0.2 % (0-2); Eosinophils Percent Auto 0.2 % (0-4); Hematocrit 29.7 % (37.0-47.0); Hemoglobin 9.7 g/dl (12.0-16.0); Imm Gran Abs Auto 0.09 X10*3/uL (0.00-0.03); Imm Gran Pct Auto 2.2 % (0.0-0.4); Lymphocytes Absolute Auto 1.1 X10*3/uL (1.2-4.9); Lymphocytes Percent Auto 26.1 % (20-40); Mean Corpuscular HGB Conc 32.7 g/dl (31.0-35.0); Mean Corpuscular Hemoglobin 26.6 pg (27.0-33.0); Mean Corpuscular Volume 81.6 fL (80.0-98.0); Mean Platelet Volume 8.7 fL (9.4-12.3); Monocytes Absolute Auto 0.6 X10*3/uL (0.1-1.2); Monocytes Percent Auto 13.4 % (2-11); Neutrophils Absolute Auto 2.4 x10*3/uL (2.0-8.3); Neutrophils Percent Auto 57.9 % (45-73); Platelet Count 284 X10*3/uL (160-400); Red Blood Count 3.64 X10*6/uL (4.20-5.50); Red Cell Distribution Width 23.2 % (11.0-16.0); White Blood Count 4.1 X10*3/uL (4.8-10.8)
[2023-03-23 05:35] LABS: Anion Gap 12 (12-20); Blood Urea Nitrogen 19 mg/dL (9-16); Carbon Dioxide 26 mmol/L (22-29); Chloride 97 mmol/L (96-108); Creatinine Clr Calc Pharmacy 73.8; Estimated Glomerular Filt Rate > 60; Glucose Random 101 mg/dL (60-115); Potassium 4.3 mmol/L (3.3-5.1); Sodium 131 mmol/L (135-145)
[2023-03-23] MEDS: Omeprazole 40 MG CAPSULE.DR PO (05:35)
[2023-03-23 05:49] LABS: Potassium Urine Random 9.5 mmol/L
[2023-03-23 07:15] VITALS: BP 129/60; PULSE 104; RESP 20; TEMP 36.6; O2SAT 97
[2023-03-23] MEDS: QUEtiapine Fumarate 50 MG TABLET PO ×2 (07:46→14:31)
[2023-03-23] MEDS: Ferrous Sulfate 324 MG TABLET.DR PO (07:46)
[2023-03-23] MEDS: Folic Acid 1 MG TABLET PO (07:46)
[2023-03-23] MEDS: Multivitamin TABLET 1 TAB PO (07:46)
[2023-03-23] MEDS: Urea 15 GM POWDER PO (07:46)
[2023-03-23] MEDS: 0.9 % Sodium Chloride Flush 3 ML SYRINGE IVFLUSH ×2 (07:46→14:31)
[2023-03-23] MEDS: Metoprolol Succinate ER 25 MG TAB.ER.24H PO (07:46)
[2023-03-23] MEDS: Thiamine HCL 100 MG TABLET PO (07:47)
[2023-03-23] MEDS: Fluticasone/Vilanterol 100/25 BLST.W.DEV 1 PUFF INHALE (08:06)
[2023-03-23 08:09] VITALS: PULSE 101; RESP 20; O2SAT 96
[2023-03-23 08:31] LABS: Estimated Average Glucose 100 mg/dL; Hemoglobin A1c % 5.1 %
--- NOTE | 2023-03-23 09:53 | PM.CNNEP ---
History of Present Illness Reason for Consult Consult date: 03/23/23 Chief Complaint Chief complaint: hyponatremia History of Present Illness Narrative: 67-year-old woman with history of COPD, CHF, diabetes, alcohol abuse presents with lower extremity edema that she reports has been ongoing over the last 2 days.? She denies any other symptoms including chest pain, shortness breath, nausea, vomiting, diarrhea, recent illness, sick contacts.? She was recently discharged from [facility] on 03/09/2023 after being treated for ESBL UTI, acute toxic metabolic encephalopathy and acute on chronic congestive heart failure.? Reports that she drinks 6 beers a day.? In the ER, chest x-ray negative for consolidation or effusion, BNP 51 no hypoxia or leukocytosis or fever noted.? Sodium of 122.? She was given a dose of albuterol in the ER.? She will be admitted for further management and treatment of acute hyponatremia. Review of Systems Review of Systems No headache. No nausea vomiting. No abdominal pain. No shortness of breath. No cough. No dysuria urgency or hematuria. No edema. No rash. [facility] Past Medical History Medical History (Updated 03/22/23 @ 16:04 by Katerine Devlin NP) Alcohol use disorder Bipolar 1 disorder Cannabis use disorder, moderate, dependence Chronic hyponatremia Congestive heart failure COPD (chronic obstructive pulmonary disease) Coronary artery disease Dementia Diabetes Effusion of shoulder joint, left Hypertension Korsakoff disease Mass of joint of left shoulder Osteoarthritis Schizophrenia Sleep apnea Family History Family History Sister Breast cancer, Onset Age: 40 Sister Breast cancer, Onset Age: 50 Surgical History Surgical History Hx of appendectomy Social History Social History (Updated 03/22/23 @ 16:04 by Katerine Devlin NP) Household Members: Spouse Housing: Apartment Do you presently have visiting nurse or other home services: Yes Alcohol intake: current Alcohol intake frequency: 3 or more drinks per day Alcohol type: beer Patient Tobacco Use Status: Current everyday Tobacco user Tobacco use type: Cigarette Cigarettes Per Day: 5 Years Smoked: 53 Smoked in Last 30 Days: Yes e-Cigarette/Vaping Use: Never Used Second Hand Smoke Exposure: Yes Use of substances other than those prescribed or required for medical reasons: Yes Substance Use Type: Marijuana Substance Use Frequency: Chronic Longstanding Currently Displaying Signs/Symptoms of Drug Intoxication Withdrawal: No Have you been hit, kicked, punched, or otherwise hurt by someone within the past year? If so, by whom?: No Do you feel safe in your current relationship?: Yes Is there a partner from a previous relationship who is making you feel unsafe now?: No Are you made to feel afraid or neglected: No Advance Directives: Yes Advance Directives on File: Yes Advance Directives Date on File: 10/10/20 Do you have thoughts of harming others: None Do you have a plan to hurt others: No Plan Recently lost weight without trying: No Eating poorly because of decreased appetite: No Nutrition Risks: No Nutritional Risk Patient : No : No Poor oral hygiene: No service: No Current occupational status: unemployed, disabled and other Sexual orientation: Straight/Heterosexual Meds Allergies Allergy/AdvReac Type Severity Reaction Status Date / Time fluticasone Allergy Unknown Verified 11/25/22 17:15 [From Advair Diskus] salmeterol Allergy Unknown Verified 11/25/22 17:15 [From Advair Diskus] paroxetine [From Paxil] AdvReac Intermediate Nausea and Verified 11/25/22 17:15 Vomiting Active Medications: Current Medications Acetaminophen (Acetaminophen 325 Mg Tablet) 650 mg PO Q6H PRN PRN Reason: Pain, Mild (Pain Scale 1-3) Last Admin: 03/23/23 02:58 Dose: 650 mg Albuterol Sulfate (Albuterol Sulfate 90 Mcg 8 Gm Inhaler) 2 puff INHALE Q4H PRN PRN Reason: Shortness Of Breath Or Wheezing Albuterol/Ipratropium (Albuterol/Iprat 2.5/0.5mg 3 Ml Ampul.Neb) 3 ml INHALE RQ4H WHILE AWAKE [facility] Last Admin: 03/23/23 08:06 Dose: 3 ml Aspirin (Aspirin Enteric Coated 81 Mg Tablet.) 81 mg PO BEDTIME [facility] Last Admin: 03/22/23 20:46 Dose: 81 mg Baclofen (Baclofen 20 Mg Tablet) 20 mg PO DAILY PRN PRN Reason: Back Pain Last Admin: 03/22/23 23:57 Dose: 20 mg Ferrous Sulfate (Ferrous Sulfate 324 Mg Tablet.) 324 mg PO DAILY [facility] Last Admin: 03/23/23 07:46 Dose: 324 mg Fluticasone/Vilanterol (Fluticasone/Vilanterol 100/25 Blst.W.Dev) 1 puff INHALE RDAILY [facility] Last Admin: 03/23/23 08:06 Dose: 1 puff Folic Acid (Folic Acid 1 Mg Tablet) 1 mg PO DAILY [facility] Last Admin: 03/23/23 07:46 Dose: 1 mg Heparin Sodium (Porcine) (Heparin Sodium,Porcine 5,000 Unit/Ml Vial) 5,000 unit SUBCUT Q12H [facility] Last Admin: 03/23/23 04:14 Dose: 5,000 unit Metoprolol Succinate (Metoprolol Succinate Er 25 Mg Tab.Er.24h) 25 mg PO DAILY [facility]; Protocol Last Admin: 03/23/23 07:46 Dose: 25 mg Montelukast Sodium (Montelukast Sodium 10 Mg Tablet) 10 mg PO BEDTIME [facility] Last Admin: 03/22/23 20:47 Dose: 10 mg Multivitamins/Vitamin C (Multivitamin Tablet) 1 tab PO DAILY [facility] Last Admin: 03/23/23 07:46 Dose: 1 tab Omeprazole (Omeprazole 40 Mg Capsule.Dr) 40 mg PO DAILY@0630 [facility] Last Admin: 03/23/23 05:35 Dose: 40 mg Ondansetron HCl (Ondansetron Hcl 4 Mg/2 Ml Vial) 4 mg IVPUSH Q8H PRN PRN Reason: Nausea and Vomiting Pharmacy Consult (Consult Rx Perform Med Rec) 1 each MISCELLANE ONCE PRN PRN Reason: Consult order Pravastatin Sodium (Pravastatin Sodium 20 Mg Tablet) 20 mg PO BEDTIME [facility] Last Admin: 03/22/23 20:47 Dose: 20 mg Quetiapine Fumarate (Quetiapine Fumarate 50 Mg Tablet) 50 mg PO TID [facility] Last Admin: 03/23/23 07:46 Dose: 50 mg Senna (Sennosides 8.6 Mg Tablet) 8.6 mg PO BID PRN PRN Reason: constipation Sodium Chloride (0.9 % Sodium Chloride Flush 3 Ml Syringe) 3 ml IVFLUSH QSHIFT [facility] Last Admin: 03/23/23 07:46 Dose: 3 ml Thiamine HCl (Thiamine Hcl 100 Mg Tablet) 100 mg PO DAILY [facility] Last Admin: 03/23/23 07:47 Dose: 100 mg Trazodone HCl (Trazodone Hcl 50 Mg Tablet) 50 mg PO BEDTIME PRN PRN Reason: insomnia Last Admin: 03/22/23 23:57 Dose: 50 mg Urea (Urea 15 Gm Powder) 15 gm PO BID [facility] Last Admin: 03/23/23 07:46 Dose: 15 gm Home Medications Medication Instructions Recorded Confirmed Last Taken Type quetiapine 50 mg tablet 50 mg PO TID 07/26/22 03/22/23 Unknown History albuterol sulfate 90 mcg/actuation 2 puff inhalation Q4-6H PRN 11/26/22 03/22/23 Unknown History aerosol inhaler (Ventolin HFA) Shortness Of Breath Or Wheezing aspirin 81 mg tablet,delayed 1 tab PO BEDTIME 11/26/22 03/22/23 Unknown History release folic acid 1 mg tablet 1 mg PO DAILY 11/26/22 03/22/23 Unknown History metoprolol succinate 25 mg 1 tab PO DAILY 11/26/22 03/22/23 Unknown History tablet,extended release 24 hr montelukast 10 mg tablet 1 tab PO BEDTIME 11/26/22 03/22/23 Unknown History omeprazole 40 mg capsule,delayed 1 cap PO DAILY@0630 11/26/22 03/22/23 Unknown History release pravastatin 20 mg tablet 1 tab PO BEDTIME 11/26/22 03/22/23 Unknown History thiamine HCl (vitamin B1) 100 mg 1 tab PO DAILY 11/26/22 03/22/23 Unknown History tablet trazodone 50 mg tablet 1 tab PO BEDTIME PRN insomnia 11/26/22 03/22/23 Unknown History ferrous sulfate 325 mg (65 mg 325 mg PO DAILY 01/31/23 03/22/23 Unknown History iron) tablet (FeroSul) fluticasone 250 mcg-salmeterol 50 1 ea inhalation BID 01/31/23 03/22/23 Unknown History mcg/dose blistr powdr for inhalation (Advair Diskus) ondansetron HCl 4 mg tablet 4 mg PO BID PRN nausea 01/31/23 03/22/23 Unknown History sennosides 8.6 mg tablet (senna) 8.6 mg PO BID PRN constipation 01/31/23 03/22/23 Unknown History ipratropium 0.5 mg-albuterol 3 mg 3 ml inhalation Q6H 03/03/23 03/22/23 Unknown History (2.5 mg base)/3 mL nebulization soln Physical Exam Vital Signs: Last Vital Signs Temp 97.9 F 03/23/23 07:15 Pulse 101 H 03/23/23 08:09 Resp 20 03/23/23 08:09 BP 129/60 03/23/23 07:15 Pulse Ox 97 03/23/23 07:15 O2 Del Method Room Air 03/23/23 07:15 O2 Flow Rate 1 03/22/23 12:04 Oxygen Flow Rate 2 03/22/23 10:15 BMI result Body Mass Index 36.4 Comfortable Neck is supple Lung: Air entry equal Heart: S1,S2, normal. No rub Abd: Soft. BS + NS : Alert.No asterexis Ext: No edema Results Lab Results 03/23/23 04:53 03/23/23 04:53 Lab results: Chemistry 03/22/23 03/22/23 03/22/23 11:10 15:53 22:49 Sodium 122 L 124 L 127 L Potassium 4.6 4.4 Carbon Dioxide 20 L 23 BUN 11 10 Creatinine 0.83 0.76 Calcium 8.7 D 8.6 03/23/23 04:53 Sodium 131 L Potassium 4.3 Carbon Dioxide 26 BUN 19 H Creatinine 0.78 Calcium 9.0 Hematology 03/22/23 03/23/23 11:25 04:53 WBC 5.8 4.1 L Hgb 10.1 L 9.7 L Plt Count 277 284 Urinalysis 03/22/23 12:12 Urine Color Yellow Urine Appearance Clear Urine pH 6.0 Ur Specific [place] <= 1.005 Urine Protein Negative Urine Glucose (UA) Negative Urine Ketones Negative Urine Blood Trace H Urine Nitrite Negative Ur Leukocyte Esterase Trace H Urine RBC 3-5 H Urine WBC 0-5 Ur Squamous Epith Cells 0-2 Hyaline Casts 0-2 Assessment and Plan (1) Acute hyponatremia: Status: Acute Plan 67-year-old male with recurrent hyponatremia due to excessive beer intake. She is been drinking about 3-6 cans of beer every day. On admission urine was dilute with a specific gravity of less than 1.005. With fluid restriction and a dose of urea powder serum sodium is gradually increased. As of this morning sodium is 131. She is asymptomatic. Recommendation would be to keep her on oral free water restriction. Discontinue urea powder. She should avoid drinking excessive beer. She needs to increase solute intake as well. We will follow as needed. Thank you Time Spent With Patient Time: Total time managing care of this patient today ____ minutes. Procedures Date of Service Date of Service: 03/23/23
--- NOTE | 2023-03-23 13:09 | MHC.CM.PN ---
CALL FROM [facility] IS FOR INITIAL HOME VISIT THIS 03/26/23. T/W TO INFORM PATIENT AND SPOUSE
--- NOTE | 2023-03-23 13:21 | P.DS_ITS ---
DS: Providers Provider Date of Service: 03/23/23 Date of admission: 03/22/23 16:11 Primary care physician: Ryder Monique MD Consults: 03/22/23 16:01 Consult to Nephrology Routine Consulting Provider: Dilshad Gallegos Reason for consultation: hyponatremia DS: Diagnosis Discharge Diagnosis (1) Acute hyponatremia: Status: Acute DS: Summary Hospital Course Hospital Course: History and physical as per admitting provider. 67-year-old woman with history of COPD, CHF, diabetes, alcohol abuse presents with lower extremity edema that she reports has been ongoing over the last 2 days.? She denies any other symptoms including chest pain, shortness breath, nausea, vomiting, diarrhea, recent illness, sick contacts.? She was recently discharged from [facility] on 03/09/2023 after being treated for ESBL UTI, acute toxic metabolic encephalopathy and acute on chronic congestive heart failure.? Reports that she drinks 6 beers a day.? In the ER, chest x-ray negative for consolidation or effusion, BNP 51 no hypoxia or leukocytosis or fever noted.? Sodium of 122.? She was given a dose of albuterol in the ER.? She will be admitted for further management and treatment of acute hyponatremia. Acute hypernatremia. Secondary to alcohol abuse, more specifically beer intake 3-6 cans a day. Treated with 1 L fluid restriction, urea. Seen and evaluated by Nephrology recommend avoiding drinking alcohol and increase solute intake. Lower extremity edema. Resolved, elevate extremities throughout the day. May use James stockings Chronic anemia Continue iron supplementation COPD No exacerbation Mental health Continue home medications Hyperlipidemia Continue statin GERD Continue PPI Time Spent with Patient Time attestation: Total time managing care of this patient today ____ minutes. Discharge coordination time: Greater than 30 minutes Quality: Safe Use of Opioids Does Pt have an Active Cancer Diagnosis on the Problem List?: No Quality: Stroke Does the patient have a stroke diagnosis?: No Physical Exam Vital Signs: Vital Signs: Last Vital Signs Temp 97.9 F 03/23/23 07:15 Pulse 101 H 03/23/23 08:09 Resp 20 03/23/23 08:09 BP 129/60 03/23/23 07:15 Pulse Ox 97 03/23/23 07:15 O2 Del Method Room Air 03/23/23 07:15 O2 Flow Rate 1 03/22/23 12:04 Oxygen Flow Rate 2 03/22/23 10:15 BMI result Body Mass Index 36.4 Appearing in no acute distress head is normocephalic atraumatic eyes pupils are PERRLA sclera is anicteric mouth throat mucous membranes are intact and moist neck is supple no lymphadenopathy, no JVD noted lung sounds are clear to auscultation heart regular rate rhythm, clear S1, S2 positive bowel sounds, abdomen is soft, nontender neuro patient is alert x3, no focal deficits DS: Data Data Completed and Pending Completed studies during hospitalization [Text1]: Procedures Detoxification Services for Substance Abuse Treatment (03/03/23) Insertion of Infusion Device into Superior Vena Cava, Percutaneous Approach (05/01/21) Labs on day of discharge: Laboratory Results - last 24 hr 03/22/23 03/22/23 03/22/23 13:47 15:53 18:12 WBC RBC Hgb Hct MCV MCH MCHC RDW Plt Count MPV Immature Gran % (Auto) Neut % (Auto) Lymph % (Auto) [place] % (Auto) Eos % (Auto) Baso % (Auto) Lymph # (Auto) [place] # (Auto) Eos # (Auto) Baso # (Auto) Abs Immat Gran (auto) Absolute Neuts (auto) Absolute Nucleated RBC Nucleated RBC % (auto) Sodium 124 L Potassium 4.4 Chloride 95 L Carbon Dioxide 23 Anion Gap 10 L BUN 10 Creatinine 0.76 Estim Creat Clear Calc 75.7 Estimated GFR > 60 POC Glucose 94 94 Random Glucose 93 Estimat Average Glucose Hemoglobin A1c % Calcium 8.6 Ur Random Sodium Ur Random Potassium Ur Random Chloride 03/22/23 03/22/23 03/23/23 20:58 22:49 04:53 WBC 4.1 L RBC 3.64 L Hgb 9.7 L Hct 29.7 L MCV 81.6 MCH 26.6 L MCHC 32.7 RDW 23.2 H Plt Count 284 MPV 8.7 L Immature Gran % (Auto) 2.2 H Neut % (Auto) 57.9 Lymph % (Auto) 26.1 Hudson % (Auto) 13.4 H Eos % (Auto) 0.2 Baso % (Auto) 0.2 Lymph # (Auto) 1.1 L [place] # (Auto) 0.6 Eos # (Auto) 0.0 Baso # (Auto) 0.0 Abs Immat Gran (auto) 0.09 H Absolute Neuts (auto) 2.4 Absolute Nucleated RBC 0.000 Nucleated RBC % (auto) 0.0 Sodium 127 L Potassium Chloride Carbon Dioxide Anion Gap BUN Creatinine Estim Creat Clear Calc Estimated GFR POC Glucose 92 Random Glucose Estimat Average Glucose Hemoglobin A1c % Calcium Ur Random Sodium Ur Random Potassium Ur Random Chloride 03/23/23 03/23/23 03/23/23 04:53 04:53 05:30 WBC RBC Hgb Hct MCV MCH MCHC RDW Plt Count MPV Immature Gran % (Auto) Neut % (Auto) Lymph % (Auto) [place] % (Auto) Eos % (Auto) Baso % (Auto) Lymph # (Auto) [place] # (Auto) Eos # (Auto) Baso # (Auto) Abs Immat Gran (auto) Absolute Neuts (auto) Absolute Nucleated RBC Nucleated RBC % (auto) Sodium 131 L Potassium 4.3 Chloride 97 Carbon Dioxide 26 Anion Gap 12 BUN 19 H Creatinine 0.78 Estim Creat Clear Calc 73.8 Estimated GFR > 60 POC Glucose Random Glucose 101 Estimat Average Glucose 100 Hemoglobin A1c % 5.1 Calcium 9.0 Ur Random Sodium 39.0 Ur Random Potassium 9.5 Ur Random Chloride 44.0 Discharge Plan Discharge Anticipated Discharge Date/Time: 03/23/23 13:19 Patient Disposition: Home Health Service Discharge Diagnosis: Hyponatremia Likely edema Referrals: Ryder Monique MD [Primary Care Provider] - 1 Week Discharge Medications: Continued quetiapine 50 mg tablet 50 mg PO TID multivitamin [Daily-Cony] Tablet 1 tab PO DAILY 30 Days Qty: 30 0RF acetaminophen 650 mg tablet extended release 1 tab PO BID PRN (Reason: pain) 30 Days Qty: 60 0RF baclofen 20 mg Tablet 20 mg PO DAILY PRN (Reason: Back Pain) 30 Days Qty: 30 0RF trazodone 50 mg tablet 1 tab PO BEDTIME PRN (Reason: insomnia) omeprazole 40 mg capsule,delayed release(DR/EC) 1 cap PO DAILY@0630 montelukast 10 mg tablet 1 tab PO BEDTIME pravastatin 20 mg tablet 1 tab PO BEDTIME metoprolol succinate 25 mg tablet extended release 24 hr 1 tab PO DAILY albuterol sulfate [Ventolin HFA] 90 mcg/actuation HFA aerosol inhaler 2 puff INHALATION Q4-6H PRN (Reason: Shortness Of Breath Or Wheezing) thiamine HCl (vitamin B1) 100 mg tablet 1 tab PO DAILY aspirin 81 mg tablet,delayed release (DR/EC) 1 tab PO BEDTIME folic acid 1 mg tablet 1 mg PO DAILY fluticasone propion-salmeterol [Advair Diskus] 250-50 mcg/dose blister with device 1 ea INHALATION BID sennosides [senna] 8.6 mg tablet 8.6 mg PO BID PRN (Reason: constipation) ondansetron HCl 4 mg tablet 4 mg PO BID PRN (Reason: nausea) ferrous sulfate [FeroSul] 325 mg (65 mg iron) tablet 325 mg PO DAILY ipratropium-albuterol 0.5 mg-3 mg(2.5 mg base)/3 mL Solution For Nebulization 3 ml INHALATION Q6H Discharge Orders: Discharge Order (Routine); Ordered 03/23/23 Ordered By: Katerine Devlin Diet: Advance to usual diet Activity on Discharge: As tolerated Stand Alone Forms: Patient Portal Discharge page Care Plan Goals: Elevate lower extremities throughout the day avoid lower extremity edema Stop drinking alcohol Health Concerns: Hyponatremia Leg edema Plan of Treatment: Follow-up with primary care provider as needed Take all medications as prescribed Assessment: See discharge summary
--- NOTE | 2023-03-23 14:50 | MHC.CM.PN ---
PATIENT IS DC HOME PRIOR TO PT EVAL.BE RECORDED PER CONVERSATION WITH P.T., PATIENT CANNOTEVEN STAND AT HIS TIME PT EVAL CAN OCCUR IN HOME ACCORDING TO [place] ([phone]) HOME ASSESSMENT TO BE COMPLETED Wednesday03/26/23 PER PREVIOUS CONVERSATION WITH [facility]
--- NOTE | 2023-03-23 14:57 | MHC.CM.PN ---
PATIENT REFUSES TO STAY, AND WANTS AMBULANCE RIDE HOME SHE IS AWARE THAT SHE WAS NOT ABLE TO STAND WITH P.T. TODAY PATIENT WILL HAVE TO NOTIFY SPOUSE AND AMBULANCE WILL BE ARRANGED FOR BEST TRANSPORT TIME AND SPOUSE BEING HOME
--- NOTE | 2023-03-23 15:05 | MHC.CM.PN ---
Addendum entered by Avani Faria RN 03/23/23 15:37: IMM 03/23 IN CHART PATIENT ASKS THIS CRUST SORTER TO SIGN FOR HER AND LEAVE BEDSIDE. SHE DOES NOT WISH TO APPEAL HER DC AND SHE WANTS TO GO HOME - REFUSES REHAB SHE IS AWARE THAT [facility] WILL START SERVICES WITHIN 48 HOURS Original Note: PATIENT REPORTS THAT MIKO KNOWS SHE IS COMING HOME AND HE WILL BE THERE TO OPEN DOOR. PATIENT STILL REFUSES TO STAY FOR PLACEMENT ATTEMPTS
--- NOTE | 2023-03-23 15:40 | W.MHC.F2F ---
Service Date Service Date: 03/23/23 Encounter Date of encounter: 03/23/23 Reasons for Services Signs and symptoms assessed: Hyponatremia alcohol use Reason for [facility]: other (check sodium in 2 days ) Homebound: Leaving the home is medically contraindicated at this time without the asist of a device and/or another person due th the listed conditions above and below. Reason homebound: unsteady gait / fall risk Certification: Based on the above findings, I certify that this patient is confined to the home and needs intermittent [facility] care, physical therapy and/or speech therapy, or continues to need occupational therapy. The patient is under my care, and I have initiated the establishment of the plan of care. The patient will be followed by a physician who will periodically review the plan of care. Time Spent With Patient Time: Total time managing care of this patient today ____ minutes.
[2023-03-23 16:00] VITALS: BP 100/55; PULSE 78; RESP 18; TEMP 36.5; O2SAT 98
== END 2023-03-23 16:49 | disposition home health service (06) | DRG 641 ==
LOC: HO.ED 15:28 → HO.EDOVER 16:25 → HO.S3 16:46
PROVIDERS: Student in an Organized Health Care Education/Training Program; Admitting Provider Nurse Practitioner Acute Care; Emergency Provider Emergency Medicine; PCP Internal Medicine Geriatric Medicine; Visit Provider Nurse Practitioner Acute Care
DX: E87.1 Hypo-osmolality and hyponatremia (principal); J44.9 Chronic obstructive pulmonary disease, unspecified; E11.9 Type 2 diabetes mellitus without complications; E78.5 Hyperlipidemia, unspecified; K21.9 Gastro-esophageal reflux disease without esophagitis; F10.10 Alcohol abuse, uncomplicated; D64.9 Anemia, unspecified; F31.9 Bipolar disorder, unspecified; F03.90 Unspecified dementia, unspecified severity, without behavioral disturbance, psychotic disturbance, mood disturbance, and anxiety; Z79.51 Long term (current) use of inhaled steroids; Z79.82 Long term (current) use of aspirin; Z79.899 Other long term (current) drug therapy
CPT/HCPCS: 36415; 71045; 80048; 80076; 81001; 82436; 82947; 83036; 83880; 84133; 84295; 84300; 84484; 85025; 93005; 94640; 97162; 99285; J1643

== ENCOUNTER 2023-04-01 10:56 | Outpatient (REF) | payer OTHER, SELFPAY | END 2023-04-01 10:57 | disposition home or self-care (01) | LOC: HO.HOSX 10:56 | PROVIDERS: Visit Provider Physician Assistant | DX: Z13.89 Encounter for screening for other disorder (principal) ==

== ENCOUNTER 2023-05-06 07:39 | Outpatient (REF) | payer OTHER, SELFPAY | END 2023-05-06 07:40 | disposition home or self-care (01) | LOC: HO.HOSX 07:39 | PROVIDERS: Visit Provider Orthopaedic Surgery | DX: Z13.89 Encounter for screening for other disorder (principal) ==

== ENCOUNTER 2023-05-25 11:04 | Outpatient (REF) | payer OTHER, SELFPAY ==
[2023-05-25 13:44] LABS: MANUAL DIFF FLAG NO
[2023-05-25 13:52] LABS: Basophils Percent Auto 0.1 % (0-2); Eosinophils Percent Auto 0.3 % (0-4); Hematocrit 35.2 % (37.0-47.0); Hemoglobin 12.5 g/dl (12.0-16.0); Imm Gran Abs Auto 0.18 X10*3/uL (0.00-0.03); Imm Gran Pct Auto 2.7 % (0.0-0.4); Lymphocytes Absolute Auto 1.6 X10*3/uL (1.2-4.9); Lymphocytes Percent Auto 24.3 % (20-40); Mean Corpuscular HGB Conc 35.5 g/dl (31.0-35.0); Mean Corpuscular Hemoglobin 29.3 pg (27.0-33.0); Mean Corpuscular Volume 82.6 fL (80.0-98.0); Mean Platelet Volume 8.9 fL (9.4-12.3); Monocytes Percent Auto 15.3 % (2-11); Neutrophils Absolute Auto 3.9 x10*3/uL (2.0-8.3); Neutrophils Percent Auto 57.3 % (45-73); Platelet Count 286 X10*3/uL (160-400); Red Blood Count 4.26 X10*6/uL (4.20-5.50); Red Cell Distribution Width 15.3 % (11.0-16.0); White Blood Count 6.7 X10*3/uL (4.8-10.8)
[2023-05-25 14:40] LABS: Alanine Aminotransferase 9 U/L (0-31); Albumin Level 3.2 g/dL (3.5-5.0); Alkaline Phosphatase 107 U/L (39-117); Anion Gap 13 (12-20); Aspartate Amino Transferase 20 U/L (5-31); Bilirubin Direct 0.4 mg/dL (0.0-0.5); Bilirubin Total 0.7 mg/dL (0.0-1.0); Blood Urea Nitrogen 11 mg/dL (9-16); Calcium 8.8 mg/dL (8.4-10.2); Carbon Dioxide 27 mmol/L (22-29); Chloride 80 mmol/L (96-108); Estimated Glomerular Filt Rate > 60; Glucose Random 102 mg/dL (60-115); Potassium 4.2 mmol/L (3.3-5.1); Sodium 116 mmol/L (135-145); Total Protein 6.6 g/dL (6.5-8.0)
== END 2023-05-25 11:05 | disposition home or self-care (01) ==
LOC: HO.HHCL 11:04
PROVIDERS: Visit Provider Internal Medicine Geriatric Medicine
DX: R10.13 Epigastric pain (principal); R11.11 Vomiting without nausea; E11.69 Type 2 diabetes mellitus with other specified complication; E66.9 Obesity, unspecified; M25.512 Pain in left shoulder; G89.29 Other chronic pain
CPT/HCPCS: 36415; 80048; 80076; 85025

== ENCOUNTER 2023-05-25 17:19 | Inpatient (IN) | payer OTHER, SELFPAY ==
--- NOTE | ~2023-05-25 | XR_ITS ---
EXAMINATION: XR CHEST CLINICAL INFORMATION: Wheezing COMPARISON: 03/22/2023 TECHNIQUE: 2 views of the chest were obtained. FINDINGS: No significant abnormality is noted involving the heart, lungs, mediastinum, bony thorax or soft tissues. XR/XR chest 2V IMPRESSION: Unremarkable examination.
[2023-05-25 17:32] VITALS: BP 128/74; BP 97/57; PULSE 93; PULSE 98; RESP 16; TEMP 37; O2SAT 95; O2SAT 97; BMI 25.4
--- NOTE | 2023-05-25 18:55 | ED.GENADULT ---
HPI - General Adult General Chief complaint: General Medical Stated complaint: abnormal labs Time Seen by Provider: 05/25/23 18:42 Source: patient Mode of arrival: ambulatory Limitations: language barrier History of Present Illness HPI narrative: patient with increased urine and high sugar. She feels more confused. Her called the ambulance for those reasons and she cant sleep Onset (ago): month(s) Related Data Home Medications Medication Instructions Recorded Confirmed quetiapine 50 mg tablet 50 mg PO TID 07/26/22 05/25/23 albuterol sulfate 90 mcg/actuation 2 puff inhalation Q4-6H PRN 11/26/22 05/25/23 aerosol inhaler (Ventolin HFA) Shortness Of Breath Or Wheezing aspirin 81 mg tablet,delayed 1 tab PO BEDTIME 11/26/22 05/25/23 release folic acid 1 mg tablet 1 mg PO DAILY 11/26/22 05/25/23 metoprolol succinate 25 mg 1 tab PO DAILY 11/26/22 05/25/23 tablet,extended release 24 hr montelukast 10 mg tablet 1 tab PO BEDTIME 11/26/22 05/25/23 omeprazole 40 mg capsule,delayed 1 cap PO DAILY@0630 11/26/22 05/25/23 release pravastatin 20 mg tablet 1 tab PO BEDTIME 11/26/22 05/25/23 thiamine HCl (vitamin B1) 100 mg 1 tab PO DAILY 11/26/22 05/25/23 tablet trazodone 50 mg tablet 1 tab PO BEDTIME PRN insomnia 11/26/22 05/25/23 ferrous sulfate 325 mg (65 mg 325 mg PO DAILY 01/31/23 05/25/23 iron) tablet (FeroSul) fluticasone 250 mcg-salmeterol 50 1 ea inhalation BID 01/31/23 05/25/23 mcg/dose blistr powdr for inhalation (Advair Diskus) ondansetron HCl 4 mg tablet 4 mg PO BID PRN nausea 01/31/23 05/25/23 sennosides 8.6 mg tablet (senna) 8.6 mg PO BID PRN constipation 01/31/23 05/25/23 acamprosate 333 mg tablet,delayed 666 mg PO TID 05/25/23 05/25/23 release albuterol sulfate 2.5 mg/3 mL 2.5 mg inhalation Q4-6H PRN 05/25/23 05/25/23 (0.083 %) solution for nebulization Wheezing famotidine 20 mg tablet 20 mg PO BID 05/25/23 05/25/23 umeclidinium 62.5 mcg/actuation 1 inh inhalation DAILY 05/25/23 05/25/23 blister powder for inhalation (Incruse Ellipta) Previous Rx's Medication Instructions Recorded acetaminophen 650 mg 1 tab PO BID PRN pain 30 days #60 04/29/22 tablet,extended release tabs baclofen 20 mg tablet 20 mg PO DAILY PRN Back Pain 30 04/29/22 days #30 tabs multivitamin (Daily-Cony tablet) 1 tab PO DAILY 30 days #30 tabs 04/29/22 Allergies Allergy/AdvReac Type Severity Reaction Status Date / Time fluticasone Allergy Unknown Verified 11/25/22 17:15 [From Advair Diskus] salmeterol Allergy Unknown Verified 11/25/22 17:15 [From Advair Diskus] paroxetine [From Paxil] AdvReac Intermediate Nausea and Verified 11/25/22 17:15 Vomiting Review of Systems Review of Systems: Yes all other systems are reviewed and are negative [facility] Past Medical History Medical History Alcohol use disorder Bipolar 1 disorder Cannabis use disorder, moderate, dependence Chronic hyponatremia Congestive heart failure COPD (chronic obstructive pulmonary disease) COPD (chronic obstructive pulmonary disease) Coronary artery disease Dementia Diabetes Effusion of shoulder joint, left Hypertension Korsakoff disease Mass of joint of left shoulder Osteoarthritis Schizophrenia Sleep apnea Surgical History Hx of appendectomy Family History Family History Sister Breast cancer, Onset Age: 40 Sister Breast cancer, Onset Age: 50 Social History Social History Household Members: Spouse Housing: Apartment Do you presently have visiting nurse or other home services: Yes Alcohol intake: current Alcohol intake frequency: 3 or more drinks per day Alcohol type: beer Patient Tobacco Use Status: Current everyday Tobacco user Tobacco use type: Cigarette Cigarettes Per Day: 5 Years Smoked: 53 e-Cigarette/Vaping Use: Never Used Second Hand Smoke Exposure: Yes Substance Use Type: Marijuana Advance Directives: Yes Advance Directives on File: Yes Advance Directives Date on File: 10/10/20 service: No Current occupational status: unemployed, disabled and other Sexual orientation: Straight/Heterosexual Physical Exam ED Vital Signs: Vital Signs - 24 hr 05/25/23 17:32 05/25/23 19:46 Temperature 98.6 F Pulse Rate 93 93 Respiratory Rate 16 16 Blood Pressure 97/57 L Pulse Oximetry 95 Oxygen Delivery Method Room Air BMI result Body Mass Index 25.4 Const Other: elderly female slightly short of breath Nutritional Appearance: average body habitus Orientation/consciousness: oriented to person and patient oriented x3 Limitations: no limitations HENMT Head: Yes normal to inspection Ears: external ears normal General nose exam: Normal external nose present Mouth: Normal oral and palatal mucosa present and oropharynx normal Throat: Yes posterior oropharynx normal Eyes General: appearance normal, both eyes and all related structures Neck Neck: Yes normal visual inspection Chest Chest palpation & inspection: normal inspection of the chest Resp Other: diffuse wheezing Cardio Jugular venous distension: no JVD Rate: regular rate Rhythm: regular rhythm Heart sounds: S1 normal heart sound present and S2 normal heart sound present GI Inspection: Yes normal to inspection Palpation (GI): Soft to palpation, nontender and No hepatosplenomegaly present Auscultation: normal bowel sounds General: Yes no CVA tenderness Back/Spine/Pelvis Back: no CVA tenderness Skin General skin exam: no rashes or lesions noted Neuro General: oriented to person and patient oriented x3 Cranial nerves: Yes CN's II-XII intact bilaterally Motor exam (neuro): 5/5 motor strength present throughout Extrem General: Yes normal to inspection Psych Appearance: grossly normal Course Reevaluation(s) Reevaluation #1: patient found to be severly hyponatremic. Will admit Time: 20:57 Medications Administered Generic Name Dose Route Start Last Admin Trade Name Freq PRN Reason Stop Dose Admin Sodium Chloride 1,000 mls @ 250 mls/hr 05/25/23 19:00 05/25/23 19:36 Ns IVCONT 05/25/23 22:59 250 mls/hr .Q4H YUMIKO Administration Discontinued Medications Generic Name Dose Route Start Last Admin Trade Name Freq PRN Reason Stop Dose Admin Albuterol/Ipratropium 3 ml 05/25/23 18:59 05/25/23 19:46 Albuterol/Iprat 2.5/0.5mg 3 Ml Ampul.Neb INHALE 05/25/23 19:00 3 ml ONCE ONE Administration Medical Decision Making Differential Diagnosis Differential Diagnoses: The differential diagnosis associated with the presentation includes (diabetes, UTI, asthma, electolyte abnormality) Admission/Observation Consideration of admission/observation: Escalation of care including admission/observation considered (upon arrival patient was considered for admission) Consult Healthcare Provider Management of the patient was discussed with: Hospitalist Lab Data MDM Lab Attestation statement: I reviewed the patient's lab results. (significant for hyponatremia) 05/25/23 19:28 05/25/23 19:28 Labs: Lab Results 05/25/23 05/25/23 Range/Units 19:28 19:28 WBC 5.8 (4.8-10.8) X10*3/uL RBC 3.94 L (4.20-5.50) X10*6/uL Hgb 11.6 L (12.0-16.0) g/dl Hct 32.4 L (37.0-47.0) % MCV 82.2 (80.0-98.0) fL MCH 29.4 (27.0-33.0) pg MCHC 35.8 H (31.0-35.0) g/dl RDW 15.1 (11.0-16.0) % Plt Count 230 (160-400) X10*3/uL MPV 8.2 L (9.4-12.3) fL Immature Gran % (Auto) 3.1 H (0.0-0.4) % Neut % (Auto) 49.7 (45-73) % Lymph % (Auto) 31.4 (20-40) % Kerr % (Auto) 14.9 H (2-11) % Eos % (Auto) 0.7 (0-4) % Baso % (Auto) 0.2 (0-2) % Lymph # (Auto) 1.8 (1.2-4.9) X10*3/uL Kerr # (Auto) 0.9 (0.1-1.2) X10*3/uL Eos # (Auto) 0.0 (0.0-0.4) X10*3/uL Baso # (Auto) 0.0 (0.0-0.2) X10*3/uL Abs Immat Gran (auto) 0.18 H (0.00-0.03) X10*3/uL Absolute Neuts (auto) 2.9 (2.0-8.3) x10*3/uL Absolute Nucleated RBC 0.000 (0.0-0.012) X10*3/uL Nucleated RBC % (auto) 0.0 (0.0-0.2) /100WBC Sodium 117 L* (135-145) mmol/L Potassium 4.3 (3.3-5.1) mmol/L Chloride 84 L (96-108) mmol/L Carbon Dioxide 23 (22-29) mmol/L Anion Gap 14 (12-20) BUN 10 (9-16) mg/dL Creatinine 0.77 (0.5-1.4) mg/dL Estim Creat Clear Calc 71.0 Estimated GFR > 60 Random Glucose 79 (60-115) mg/dL Calcium 8.7 (8.4-10.2) mg/dL Independent Interpretation I performed an independent interpretation of an: Plain X-Ray (no infiltrate) External Record Review External record reviewed: Inpatient record and Prior outpatient labs Chronic Conditions Patient?s care impacted by: Diabetes and Hypertension Social Determinants Patient?s care significantly limited by Social Determinants of Health including: Alcoholism and drug addiction in family Discharge Plan Discharge Clinical Impression: Acute hyponatremia Patient Disposition: Admitted As Inpatient
[2023-05-25 19:31] LABS: MANUAL DIFF FLAG NO
[2023-05-25 19:32] LABS: Basophils Percent Auto 0.2 % (0-2); Eosinophils Percent Auto 0.7 % (0-4); Hematocrit 32.4 % (37.0-47.0); Hemoglobin 11.6 g/dl (12.0-16.0); Imm Gran Abs Auto 0.18 X10*3/uL (0.00-0.03); Imm Gran Pct Auto 3.1 % (0.0-0.4); Lymphocytes Absolute Auto 1.8 X10*3/uL (1.2-4.9); Lymphocytes Percent Auto 31.4 % (20-40); Mean Corpuscular HGB Conc 35.8 g/dl (31.0-35.0); Mean Corpuscular Hemoglobin 29.4 pg (27.0-33.0); Mean Corpuscular Volume 82.2 fL (80.0-98.0); Mean Platelet Volume 8.2 fL (9.4-12.3); Monocytes Absolute Auto 0.9 X10*3/uL (0.1-1.2); Monocytes Percent Auto 14.9 % (2-11); Neutrophils Absolute Auto 2.9 x10*3/uL (2.0-8.3); Neutrophils Percent Auto 49.7 % (45-73); Platelet Count 230 X10*3/uL (160-400); Red Blood Count 3.94 X10*6/uL (4.20-5.50); Red Cell Distribution Width 15.1 % (11.0-16.0); White Blood Count 5.8 X10*3/uL (4.8-10.8)
[2023-05-25] MEDS: 0.9 % Sodium Chloride 1,000 ML 250 ML IVCONT (19:36)
[2023-05-25 19:46] VITALS: PULSE 93; RESP 16; O2SAT 95
[2023-05-25] MEDS: Albuterol/Iprat 2.5/0.5MG 3 ML AMPUL.NEB INHALE (19:46)
[2023-05-25 19:48] LABS: Anion Gap 14 (12-20); Blood Urea Nitrogen 10 mg/dL (9-16); Calcium 8.7 mg/dL (8.4-10.2); Carbon Dioxide 23 mmol/L (22-29); Chloride 84 mmol/L (96-108); Estimated Glomerular Filt Rate > 60; Glucose Random 79 mg/dL (60-115); Potassium 4.3 mmol/L (3.3-5.1); Sodium 117 mmol/L (135-145)
--- NOTE | 2023-05-25 21:15 | PHA.MEDREC ---
Pharmacy Consult ? Medication Reconciliation Pharmacy has completed the medication reconciliation. Patient uses [facility] from [facility] pharmacy. Utilized claim history for med rec. Javier HiltonD
[2023-05-25 21:46] VITALS: BP 128/75; PULSE 114; RESP 18; TEMP 36.9; O2SAT 95
--- NOTE | 2023-05-25 22:37 | PM.CCHP ---
History of Present Illness Date of Service: 05/25/23 Attending physician on admission: Kelvin Harrison Chief Complaint: High sugar This is a 68-year-old female? Canadian-speaking only with a past medical history of congestive heart failure, COPD, DANO, CAD, diabetes, hypertension,? and ETOH abuse and multiple admissions for hyponatremia who presented to the emergency room with complaints of high blood sugar and frequent urination.? In the emergency the patient's vital signs stable,? but laboratory data showed? sodium of 117? ( patient baseline 123-131). Blood glucose normal. She has no neurological? deficits.? ?? ED course: normal saline bolus We will admit into the ICU for management hyponatremia Review of Systems Review of Systems: Constitutional: No weakness No fever, chills, fatigue.? Eyes: No visual loss, blurred vision, double vision or yellow sclera ENT: No congestion, runny nose and sore throat, hearing loss Respiratory: No shortness of breath, cough. No sputum production. Cardiovascular: No chest pain, chest pressure or chest discomfort.? Gastrointestinal: No nausea, vomiting, diarrhea. No abdominal pain or blood in stool. Genitourinary:No urinary frequency or incontinence. Neurologic: No headache, dizziness, syncope, unilateral weakness, ataxia, numbness or tingling in the extremities. No change in bowel or bladder control. Musculoskeletal:.? No joint pain or stiffness. Hematologic/Lymphatics: No bleeding or bruising. No painful lymph nodes. Skin: + dry skin Endocrine: + frequent urination. No sweating. No cold or heat intolerance. [facility] Past Medical History Medical History Alcohol use disorder Bipolar 1 disorder Cannabis use disorder, moderate, dependence Chronic hyponatremia Congestive heart failure COPD (chronic obstructive pulmonary disease) COPD (chronic obstructive pulmonary disease) Coronary artery disease Dementia Diabetes Effusion of shoulder joint, left Hypertension Korsakoff disease Mass of joint of left shoulder Osteoarthritis Schizophrenia Sleep apnea Family History Family History Sister Breast cancer, Onset Age: 40 Sister Breast cancer, Onset Age: 50 Surgical History Surgical History Hx of appendectomy Social History Social History Household Members: Spouse Housing: Apartment Do you presently have visiting nurse or other home services: No Alcohol intake: current Alcohol intake frequency: 3 or more drinks per day Alcohol type: beer Patient Tobacco Use Status: Current everyday Tobacco user Tobacco use type: Cigarette Cigarettes Per Day: 5 Years Smoked: 53 Smoked in Last 30 Days: Yes e-Cigarette/Vaping Use: Never Used Second Hand Smoke Exposure: Yes Use of substances other than those prescribed or required for medical reasons: Yes Substance Use Type: Marijuana Substance Use Frequency: Occasionally Currently Displaying Signs/Symptoms of Drug Intoxication Withdrawal: No Any prior treatment program specific to substance use: No Have you been hit, kicked, punched, or otherwise hurt by someone within the past year? If so, by whom?: No Do you feel safe in your current relationship?: No Is there a partner from a previous relationship who is making you feel unsafe now?: No Are you made to feel afraid or neglected: No Advance Directives: Yes Advance Directives on File: Yes Advance Directives Date on File: 10/10/20 Do you have thoughts of harming others: None Do you have a plan to hurt others: No Plan Recently lost weight without trying: No How much weight loss: Not applicable Eating poorly because of decreased appetite: No Nutrition screen score: 0 Nutrition Risks: No Nutritional Risk Patient : No : No service: No Current occupational status: unemployed, disabled and other Sexual orientation: Straight/Heterosexual Meds Allergies Allergy/AdvReac Type Severity Reaction Status Date / Time fluticasone Allergy Unknown Verified 11/25/22 17:15 [From Advair Diskus] salmeterol Allergy Unknown Verified 11/25/22 17:15 [From Advair Diskus] paroxetine [From Paxil] AdvReac Intermediate Nausea and Verified 11/25/22 17:15 Vomiting Active Medications: Current Medications Enoxaparin Sodium (Enoxaparin Sodium 40 Mg/0.4 Ml Syringe) 40 mg SUBCUT Q24H YUMIKO Sodium Chloride (Ns) 1,000 mls @ 250 mls/hr IVCONT .Q4H YUMIKO Stop: 05/25/23 22:59 Last Admin: 05/25/23 19:36 Dose: 250 mls/hr Home Medications Medication Instructions Recorded Confirmed Last Taken Type quetiapine 50 mg tablet 50 mg PO TID 10/30/22 08/29/23 Unknown History albuterol sulfate 90 mcg/actuation 2 puff inhalation Q4-6H PRN 11/26/22 05/25/23 Unknown History aerosol inhaler (Ventolin HFA) Shortness Of Breath Or Wheezing aspirin 81 mg tablet,delayed 1 tab PO BEDTIME 11/26/22 05/25/23 Unknown History release folic acid 1 mg tablet 1 mg PO DAILY 11/26/22 05/25/23 Unknown History metoprolol succinate 25 mg 1 tab PO DAILY 11/26/22 05/25/23 Unknown History tablet,extended release 24 hr montelukast 10 mg tablet 1 tab PO BEDTIME 11/26/22 05/25/23 Unknown History omeprazole 40 mg capsule,delayed 1 cap PO DAILY@0630 11/26/22 05/25/23 Unknown History release pravastatin 20 mg tablet 1 tab PO BEDTIME 11/26/22 05/25/23 Unknown History thiamine HCl (vitamin B1) 100 mg 1 tab PO DAILY 11/26/22 05/25/23 Unknown History tablet trazodone 50 mg tablet 1 tab PO BEDTIME PRN insomnia 11/26/22 05/25/23 Unknown History ferrous sulfate 325 mg (65 mg 325 mg PO DAILY 01/31/23 05/25/23 Unknown History iron) tablet (FeroSul) fluticasone 250 mcg-salmeterol 50 1 ea inhalation BID 01/31/23 05/25/23 Unknown History mcg/dose blistr powdr for inhalation (Advair Diskus) ondansetron HCl 4 mg tablet 4 mg PO BID PRN nausea 01/31/23 05/25/23 Unknown History sennosides 8.6 mg tablet (senna) 8.6 mg PO BID PRN constipation 01/31/23 05/25/23 Unknown History acamprosate 333 mg tablet,delayed 666 mg PO TID 05/25/23 05/25/23 Unknown History release albuterol sulfate 2.5 mg/3 mL 2.5 mg inhalation Q4-6H PRN 05/25/23 05/25/23 Unknown History (0.083 %) solution for nebulization Wheezing famotidine 20 mg tablet 20 mg PO BID 05/25/23 05/25/23 Unknown History umeclidinium 62.5 mcg/actuation 1 inh inhalation DAILY 05/25/23 05/25/23 Unknown History blister powder for inhalation (Incruse Ellipta) Physical Exam Vital Signs: Vital Signs: Last Vital Signs Temp 98.5 F 05/25/23 21:46 Pulse 114 H 05/25/23 21:46 Resp 18 05/25/23 21:46 BP 128/75 05/25/23 21:46 Pulse Ox 95 05/25/23 21:46 O2 Del Method Room Air 05/25/23 21:46 BMI result Body Mass Index 25.4 Constitutional: Alert, x 3.? Does have history of dementia at times? forgetful HEENT: Normocephalic. Pupils are equal, round and reactive to light. Oropharynx clear, dry mucous membranes . Neck: Supple, Full range of motion. Respiratory: Lungs CTA.? No resp distress. Cardiovascular: S1 S2 regular. No murmurs, rubs or gallops. Gastrointestinal: Abdomen soft, non-tender, non-distended. Normal bowel sounds. No pulsatile mass. No hepatosplenomegaly. Neurologic: ? Able to move all extremities? to command.Strength is normal all extremities.? Muscle skeletal: Mild edema on BLE? Skin: Multiple bruises on bilateral lower extremities.?? Heme/Lymphatics/Immun: Palpation of neck reveals no swelling or tenderness of neck nodes. Psychiatric: Normal mood and affect Results Labs 05/25/23 19:28 05/25/23 19:28 Labs: Laboratory Results - last 24 hr 05/25/23 05/25/23 19:28 19:28 MCV 82.2 MCH 29.4 MCHC 35.8 H RDW 15.1 Plt Count 230 MPV 8.2 L Immature Gran % (Auto) 3.1 H Neut % (Auto) 49.7 Lymph % (Auto) 31.4 [place] % (Auto) 14.9 H Eos % (Auto) 0.7 Baso % (Auto) 0.2 Lymph # (Auto) 1.8 [place] # (Auto) 0.9 Eos # (Auto) 0.0 Baso # (Auto) 0.0 Abs Immat Gran (auto) 0.18 H Absolute Neuts (auto) 2.9 Absolute Nucleated RBC 0.000 Nucleated RBC % (auto) 0.0 Anion Gap 14 Estim Creat Clear Calc 71.0 Estimated GFR > 60 Random Glucose 79 Calcium 8.7 Imaging Radiologist's Impressions: Impressions Chest X-Ray 05/25/23 19:13 IMPRESSION: Unremarkable examination. Assessment and Plan (1) Acute hyponatremia: Status: Acute (2) Diabetes: Status: Acute (3) Alcohol use disorder: Status: Acute Plan 68-year-old female with a past medical history of ETOH abuse who was admitted into the ICU for hyponatremia with no neuro deficits?? ? Plan:? Neuro:? ?No acute issues Cardiac:? no acute issues Pulmonary:? No acute issues Renal:? Acute hyponatremia? - Patient has had multiple admissions for hyponatremia due to alcohol abuse. She does admit to drinking while home with last drink being yesterday. Urine studies pending.? Normal saline bolus given in ED. Will do water restriction and regular diet.? Frequent neuro checks. Serial serum sodium.? ? Endo:?? DM- He reported high sugars at home,? glucose was normal on chemistries. Cont to check POCs? GI: no acute issues?? ID:? ?No acute issues Heme/Onc:? No acute issues. Psych:? ETOH abuse:? will closely monitor for? signs and symptoms of alcohol withdrawal.? Will start folic/thiamine Miscellaneous: ? no acute issues Diet:Diabetic with fluid restriction ? prophylaxis: Lovenox, No GI prophylaxis at this time ? Critical care time:? X 45 minutes of critical care time ? Code? status:? FULL CODE? ? Case discussed with attending Dr Harrison? Time Spent With Patient Time: Total time managing care of this patient today ____ minutes.
[2023-05-25 22:47] VITALS: BMI 36.0
--- NOTE | 2023-05-25 22:48 | PC.NURSE ---
bed scale lo battery will note weigh
[2023-05-25] MEDS: Enoxaparin Sodium 40 MG/0.4 ML SYRINGE SUBCUT (22:52)
[2023-05-25 23:17] VITALS: BP 102/51; PULSE 99; RESP 16; TEMP 36.7; O2SAT 97
[2023-05-26] VITALS (18 sets, daily range): BP systolic 95–160; BP diastolic 47–78; PULSE 80–110; RESP 11–24; TEMP 36.1–36.9; O2SAT 94–100; BMI 30.1; BMI 29.9
[2023-05-26 04:50] LABS: VBG Base Excess 5.6 mmol/L; VBG HCO3 29 mmol/L (22-26); VBG pCO2 40 mmHg; VBG pH 7.47 (7.32-7.43); VBG pO2 94 mmHg
[2023-05-26 04:59] LABS: MANUAL DIFF FLAG NO
[2023-05-26 05:03] LABS: Basophils Percent Auto 0.2 % (0-2); Eosinophils Percent Auto 0.6 % (0-4); Hematocrit 33.6 % (37.0-47.0); Imm Gran Abs Auto 0.23 X10*3/uL (0.00-0.03); Imm Gran Pct Auto 4.4 % (0.0-0.4); Lymphocytes Absolute Auto 1.7 X10*3/uL (1.2-4.9); Lymphocytes Percent Auto 31.8 % (20-40); Mean Corpuscular HGB Conc 35.7 g/dl (31.0-35.0); Mean Corpuscular Hemoglobin 29.7 pg (27.0-33.0); Mean Corpuscular Volume 83.2 fL (80.0-98.0); Mean Platelet Volume 8.3 fL (9.4-12.3); Monocytes Absolute Auto 0.9 X10*3/uL (0.1-1.2); Monocytes Percent Auto 16.7 % (2-11); Neutrophils Absolute Auto 2.5 x10*3/uL (2.0-8.3); Neutrophils Percent Auto 46.3 % (45-73); Platelet Count 228 X10*3/uL (160-400); Red Blood Count 4.04 X10*6/uL (4.20-5.50); Red Cell Distribution Width 15.3 % (11.0-16.0); White Blood Count 5.3 X10*3/uL (4.8-10.8)
[2023-05-26 05:23] LABS: Alanine Aminotransferase 9 U/L (0-31); Albumin Level 2.7 g/dL (3.5-5.0); Alkaline Phosphatase 92 U/L (39-117); Anion Gap 11 (12-20); Aspartate Amino Transferase 17 U/L (5-31); Bilirubin Total 0.5 mg/dL (0.0-1.0); Blood Urea Nitrogen 11 mg/dL (9-16); Calcium 8.4 mg/dL (8.4-10.2); Carbon Dioxide 25 mmol/L (22-29); Chloride 89 mmol/L (96-108); Creatinine Clr Calc Pharmacy 59.9; Estimated Glomerular Filt Rate > 60; Glucose Random 111 mg/dL (60-115); Magnesium 1.9 mg/dL (1.6-2.6); Phosphorus 3.3 mg/dL (2.7-4.5); Potassium 4.1 mmol/L (3.3-5.1); Sodium 121 mmol/L (135-145); Total Protein 5.6 g/dL (6.5-8.0)
[2023-05-26 05:57] LABS: Venous Blood Gas Refer to POC result
[2023-05-26] MEDS: Omeprazole 40 MG CAPSULE.DR PO (06:10)
[2023-05-26] MEDS: Albuterol Sulfate (0.083%) 2.5 MG/3 ML VIAL.NEB INHALE (06:20)
[2023-05-26] MEDS: Albumin Human 25 % 100 ML IV (07:25)
[2023-05-26] MEDS: Metoprolol Succinate ER 25 MG TAB.ER.24H PO (08:38)
[2023-05-26] MEDS: Thiamine HCL 100 MG TABLET PO (08:38)
[2023-05-26] MEDS: QUEtiapine Fumarate 50 MG TABLET PO ×3 (08:42→22:22)
[2023-05-26] MEDS: Folic Acid 1 MG TABLET PO (08:42)
--- NOTE | 2023-05-26 08:47 | P.PNCC_ITS ---
Subjective Subjective Date of Service: 05/26/23 Interval History: 68-year-old lady with underlying history of bipolar disorder alcoholism, dementia, COPD, course of syndrome, schizophrenia, multiple admissions for hyponatremia secondary to low solute intake admitted on 05/25/2023 with malaise and subacute to chronic hyponatremia with initial sodium 117. Patient was started on p.o. diet and admitted to intensive care unit. She was monitored overnight with improvement in her sodium level. She had no neurologic deficits. Critical Care Time (minutes): 45 Physical Exam Vital Signs: Vital Signs: Last Vital Signs Temp 97.6 F 05/26/23 07:00 Pulse 90 05/26/23 08:00 Resp 21 H 05/26/23 08:00 BP 117/67 05/26/23 08:00 Pulse Ox 96 05/26/23 08:00 O2 Del Method Nasal Cannula 05/26/23 08:00 O2 Flow Rate 1 05/26/23 08:00 BMI result Body Mass Index 29.9 Const: General: no acute distress, alert and awake Eyes: Sclerae: sclerae normal EOM: EOMs intact bilaterally Neck: Neck: Yes no lymphadenopathy, Yes trachea midline and Yes supple Resp: Effort & Inspection: normal respiratory effort and no respiratory distress Auscultation: clear to auscultation bilaterally Cardio: Rate: regular rate Rhythm: regular rhythm Heart sounds: no gallops, no murmurs and no rubs GI: Palpation (GI): Soft to palpation and Other GI palpation findings present ( Nontender) Auscultation: normal bowel sounds Extrem: General: Yes no pedal edema, No clubbing and No cyanosis Objective Data Labs 05/26/23 04:44 05/26/23 04:44 Labs: Laboratory Results - last 24 hr 05/25/23 05/25/23 05/26/23 19:28 19:28 04:44 WBC 5.8 5.3 RBC 3.94 L 4.04 L Hgb 11.6 L 12.0 Hct 32.4 L 33.6 L MCV 82.2 83.2 MCH 29.4 29.7 MCHC 35.8 H 35.7 H RDW 15.1 15.3 Plt Count 230 228 MPV 8.2 L 8.3 L Immature Gran % (Auto) 3.1 H 4.4 H Neut % (Auto) 49.7 46.3 Lymph % (Auto) 31.4 31.8 [place] % (Auto) 14.9 H 16.7 H Eos % (Auto) 0.7 0.6 Baso % (Auto) 0.2 0.2 Lymph # (Auto) 1.8 1.7 [place] # (Auto) 0.9 0.9 Eos # (Auto) 0.0 0.0 Baso # (Auto) 0.0 0.0 Abs Immat Gran (auto) 0.18 H 0.23 H Absolute Neuts (auto) 2.9 2.5 Absolute Nucleated RBC 0.000 0.000 Nucleated RBC % (auto) 0.0 0.0 VBG pH VBG pCO2 VBG pO2 VBG HCO3 VBG O2 Saturation VBG Base Excess Sodium 117 L* Potassium 4.3 Chloride 84 L Carbon Dioxide 23 Anion Gap 14 BUN 10 Creatinine 0.77 Estim Creat Clear Calc 71.0 Estimated GFR > 60 Random Glucose 79 Calcium 8.7 Phosphorus Magnesium Total Bilirubin AST ALT Alkaline Phosphatase Total Protein Albumin 05/26/23 05/26/23 04:44 04:45 WBC RBC Hgb Hct MCV MCH MCHC RDW Plt Count MPV Immature Gran % (Auto) Neut % (Auto) Lymph % (Auto) [place] % (Auto) Eos % (Auto) Baso % (Auto) Lymph # (Auto) [place] # (Auto) Eos # (Auto) Baso # (Auto) Abs Immat Gran (auto) Absolute Neuts (auto) Absolute Nucleated RBC Nucleated RBC % (auto) VBG pH 7.47 H VBG pCO2 40 VBG pO2 94 VBG HCO3 29 H VBG O2 Saturation 99.0 VBG Base Excess 5.6 Sodium 121 L Potassium 4.1 Chloride 89 L Carbon Dioxide 25 Anion Gap 11 L BUN 11 Creatinine 0.83 Estim Creat Clear Calc 59.9 Estimated GFR > 60 Random Glucose 111 Calcium 8.4 Phosphorus 3.3 Magnesium 1.9 Total Bilirubin 0.5 AST 17 ALT 9 Alkaline Phosphatase 92 Total Protein 5.6 L Albumin 2.7 L Progress Note: A&P Assessment and plan (1) Acute hyponatremia: Status: Acute (2) Diabetes: Status: Acute (3) Alcohol use disorder: Status: Acute (4) COPD (chronic obstructive pulmonary disease): Status: Acute Plan Assessment: 68-year-old lady with multiple medical issues with multiple admissions for subacute hyponatremia secondary to low solute intake admitted wi th asymptomatic hyponatremia Plan: Neuro: No acute issues. Cardiac: No acute issues. Underlying CAD. Pulmonary: No acute issues. Underlying COPD. Renal: Hyponatremia secondary to low solute intake. Improved with regular diet. Continue to monitor sodium level. Endo: No acute issues. GI: No acute issues. ID: No acute issues Heme/Onc: No acute issues. Psych: No acute issues. Underlying bipolar disorder. Miscellaneous: No acute issues. Prophylaxis: Heparin Diet: regular Quality Stroke Does the patient have a stroke diagnosis?: No VTE Prior VTE?: No VTE Risk Level:: Medical - moderate - high VTE Device Contraindication: Treatment Not Indicated VTE Drug Contraindication: N/A - Med Ordered
--- NOTE | 2023-05-26 09:37 | MHC.CM.PN ---
IMM DELIVERED TO BEDSIDE. MESSAGE LEFT WITH SPOUSE/HCP MIKO EXPLAINING IMM . UNABLE TO REACH SPOUSE AT THIS TIME, AWAITING RETURN CALL. INFORMATION OBTAINED FROM CHART FROM RECENT VISITS. PT LIVES WITH SPOUSE, HAS [facility] FOR HC/V CARE FOR IP ATTORNEY SERVICES. +HCP ON FILE. PCP AT [facility]. DP: TBD UNTIL PT EVAL/ CONVERSATION WITH SPOUSE. CM WILL CONTINUE TO FOLLOW FOR EVOLVING DC PLAN/NEEDS.
[2023-05-26] MEDS: Acetaminophen 325 MG TABLET 650 MG PO (10:56)
[2023-05-26 12:53] LABS: Anion Gap 10 (12-20); Blood Urea Nitrogen 10 mg/dL (9-16); Calcium 8.6 mg/dL (8.4-10.2); Carbon Dioxide 27 mmol/L (22-29); Chloride 91 mmol/L (96-108); Creatinine Clr Calc Pharmacy 63.3; Estimated Glomerular Filt Rate > 60; Glucose Random 142 mg/dL (60-115); Potassium 4.3 mmol/L (3.3-5.1); Sodium 124 mmol/L (135-145)
[2023-05-26] MEDS: Albuterol/Iprat 2.5/0.5MG 3 ML AMPUL.NEB INHALE ×2 (15:15→19:46)
[2023-05-26 16:13] LABS: Glucose, Whole Blood 120 mg/dL (60-115)
[2023-05-26 20:25] LABS: Glucose, Whole Blood 160 mg/dL (60-115)
[2023-05-26] MEDS: Enoxaparin Sodium 40 MG/0.4 ML SYRINGE SUBCUT (22:21)
[2023-05-26] MEDS: Montelukast Sodium 10 MG TABLET PO (22:22)
[2023-05-26] MEDS: Aspirin Enteric Coated 81 MG TABLET.DR PO (22:22)
[2023-05-26] MEDS: Pravastatin Sodium 20 MG TABLET PO (22:22)
[2023-05-27] VITALS (9 sets, daily range): BP systolic 121–138; BP diastolic 61–80; PULSE 81–97; RESP 16–20; TEMP 36.1–36.3; O2SAT 92–99; BMI 29.5
[2023-05-27 05:39] LABS: MANUAL DIFF FLAG NO
[2023-05-27 05:45] LABS: Basophils Percent Auto 0.4 % (0-2); Eosinophils Percent Auto 0.8 % (0-4); Hematocrit 31.7 % (37.0-47.0); Hemoglobin 11.1 g/dl (12.0-16.0); Imm Gran Abs Auto 0.14 X10*3/uL (0.00-0.03); Imm Gran Pct Auto 2.9 % (0.0-0.4); Lymphocytes Absolute Auto 1.8 X10*3/uL (1.2-4.9); Lymphocytes Percent Auto 37.2 % (20-40); Mean Corpuscular Hemoglobin 29.8 pg (27.0-33.0); Mean Corpuscular Volume 85.2 fL (80.0-98.0); Mean Platelet Volume 8.8 fL (9.4-12.3); Monocytes Absolute Auto 0.8 X10*3/uL (0.1-1.2); Monocytes Percent Auto 17.2 % (2-11); Neutrophils Percent Auto 41.5 % (45-73); Platelet Count 241 X10*3/uL (160-400); Red Blood Count 3.72 X10*6/uL (4.20-5.50); Red Cell Distribution Width 15.6 % (11.0-16.0); White Blood Count 4.8 X10*3/uL (4.8-10.8)
[2023-05-27] MEDS: Omeprazole 40 MG CAPSULE.DR PO (05:52)
[2023-05-27 06:08] LABS: Albumin Level 2.9 g/dL (3.5-5.0); Anion Gap 11 (12-20); Blood Urea Nitrogen 11 mg/dL (9-16); Calcium 8.8 mg/dL (8.4-10.2); Carbon Dioxide 27 mmol/L (22-29); Chloride 94 mmol/L (96-108); Creatinine Clr Calc Pharmacy 66.1; Estimated Glomerular Filt Rate > 60; Glucose Random 88 mg/dL (60-115); Magnesium 1.9 mg/dL (1.6-2.6); Phosphorus 2.7 mg/dL (2.7-4.5); Potassium 4.3 mmol/L (3.3-5.1); Sodium 128 mmol/L (135-145)
[2023-05-27 07:37] LABS: Glucose, Whole Blood 132 mg/dL (60-115)
[2023-05-27] MEDS: Albuterol/Iprat 2.5/0.5MG 3 ML AMPUL.NEB INHALE ×3 (07:39→19:33)
--- NOTE | 2023-05-27 08:11 | HO.PM.IMPN ---
Subjective Subjective Date of Service: 05/27/23 Interval History: no complaints, feeling better Physical Exam Vital Signs: Vital Signs: Last Vital Signs Temp 96.9 F 05/27/23 07:17 Pulse 95 05/27/23 07:40 Resp 18 05/27/23 07:40 BP 121/64 05/27/23 07:17 Pulse Ox 93 05/27/23 07:17 O2 Del Method Room Air 05/27/23 07:17 O2 Flow Rate 1 05/26/23 08:00 BMI result Body Mass Index 29.5 General: AO X 3, no acute distress Resp: CTA bilateral, no accessory muscles used CVS: S1,S2,RRR GI: soft, non tender, non distended Neuro: motor grossly intact, alert Psych: appropriate affect, appropriate insight Objective Data Active Medications Acetaminophen (Acetaminophen 325 Mg Tablet) 650 mg PO Q6H PRN PRN Reason: Pain, Mild (Pain Scale 1-3) Last Admin: 05/26/23 10:56 Dose: 650 mg Documented By: TOMMY Albuterol Sulfate (Albuterol Sulfate (0.083%) 2.5 Mg/3 Ml Vial.Neb) 2.5 mg INHALE Q4H PRN PRN Reason: Shortness of Breath/Wheezing Last Admin: 05/26/23 06:20 Dose: 2.5 mg Documented By: KRAIG Albuterol/Ipratropium (Albuterol/Iprat 2.5/0.5mg 3 Ml Ampul.Neb) 3 ml INHALE RQ6H WHILE AWAKE [facility] Last Admin: 05/27/23 07:39 Dose: 3 ml Documented By: PARISH Aspirin (Aspirin Enteric Coated 81 Mg Tablet.Dr) 81 mg PO BEDTIME [facility] Last Admin: 05/26/23 22:22 Dose: 81 mg Documented By: ROMARIO Enoxaparin Sodium (Enoxaparin Sodium 40 Mg/0.4 Ml Syringe) 40 mg SUBCUT Q24H [facility] Last Admin: 05/26/23 22:21 Dose: 40 mg Documented By: ROMARIO Folic Acid (Folic Acid 1 Mg Tablet) 1 mg PO DAILY [facility] Last Admin: 05/26/23 08:42 Dose: 1 mg Documented By: TOMMY Metoprolol Succinate (Metoprolol Succinate Er 25 Mg Tab.Er.24h) 25 mg PO DAILY [facility]; Protocol Last Admin: 05/26/23 08:38 Dose: 25 mg Documented By: TOMMY Montelukast Sodium (Montelukast Sodium 10 Mg Tablet) 10 mg PO BEDTIME [facility] Last Admin: 05/26/23 22:22 Dose: 10 mg Documented By: ROMARIO Omeprazole (Omeprazole 40 Mg Capsule.Dr) 40 mg PO DAILY@0630 [facility] Last Admin: 05/27/23 05:52 Dose: 40 mg Documented By: COREY Pravastatin Sodium (Pravastatin Sodium 20 Mg Tablet) 20 mg PO BEDTIME [facility] Last Admin: 05/26/23 22:22 Dose: 20 mg Documented By: ROMARIO Quetiapine Fumarate (Quetiapine Fumarate 50 Mg Tablet) 50 mg PO TID [facility] Last Admin: 05/26/23 22:22 Dose: 50 mg Documented By: ROMARIO Thiamine HCl (Thiamine Hcl 100 Mg Tablet) 100 mg PO DAILY [facility] Last Admin: 05/26/23 08:38 Dose: 100 mg Documented By: TOMMY Trazodone HCl (Trazodone Hcl 50 Mg Tablet) 50 mg PO BEDTIME PRN PRN Reason: insomnia Labs 05/27/23 05:11 05/27/23 05:11 Labs: Laboratory Results - last 24 hr 05/26/23 05/26/23 05/26/23 12:31 16:00 20:21 MCV MCH MCHC RDW Plt Count MPV Immature Gran % (Auto) Neut % (Auto) Lymph % (Auto) [place] % (Auto) Eos % (Auto) Baso % (Auto) Lymph # (Auto) [place] # (Auto) Eos # (Auto) Baso # (Auto) Abs Immat Gran (auto) Absolute Neuts (auto) Absolute Nucleated RBC Nucleated RBC % (auto) Anion Gap 10 L Estim Creat Clear Calc 63.3 Estimated GFR > 60 POC Glucose 120 H 160 H Random Glucose 142 H Calcium 8.6 Phosphorus Magnesium Albumin 05/27/23 05/27/23 05/27/23 05:11 05:11 07:24 MCV 85.2 MCH 29.8 MCHC 35.0 RDW 15.6 Plt Count 241 MPV 8.8 L Immature Gran % (Auto) 2.9 H Neut % (Auto) 41.5 L Lymph % (Auto) 37.2 [place] % (Auto) 17.2 H Eos % (Auto) 0.8 Baso % (Auto) 0.4 Lymph # (Auto) 1.8 [place] # (Auto) 0.8 Eos # (Auto) 0.0 Baso # (Auto) 0.0 Abs Immat Gran (auto) 0.14 H Absolute Neuts (auto) 2.0 Absolute Nucleated RBC 0.000 Nucleated RBC % (auto) 0.0 Anion Gap 11 L Estim Creat Clear Calc 66.1 Estimated GFR > 60 POC Glucose 132 H Random Glucose 88 Calcium 8.8 Phosphorus 2.7 Magnesium 1.9 Albumin 2.9 L Assessment and Plan (1) Acute hyponatremia: Status: Acute Plan 68F PMH etoh dependence, COPD, DM, chronic diastolic chf, presented with weakness found to have severe hyponatremia 116, admitted to icu, given po solids and fluid restriction, sodium improved at acceptable rate, downgraded to medical floor acute hyponatremia beer potomania resolving, continue solid diet and fluid restritcion, monitor bmp dM insulin etoh dependence ciwa no withdrdawal copd stable chronic diastolic chf stable dvt prophyalxis - lovenox full code reason for continued hospitalization:hyponatremia Time Spent With Patient Time: Total time managing care of this patient today ____ minutes. Quality Stroke Does the patient have a stroke diagnosis?: No VTE Prior VTE?: No VTE Risk Level:: Medical - moderate - high VTE Device Contraindication: Treatment Not Indicated VTE Drug Contraindication: N/A - Med Ordered
[2023-05-27] MEDS: Metoprolol Succinate ER 25 MG TAB.ER.24H PO (08:15)
[2023-05-27] MEDS: Thiamine HCL 100 MG TABLET PO (08:16)
[2023-05-27] MEDS: Folic Acid 1 MG TABLET PO (08:16)
[2023-05-27] MEDS: QUEtiapine Fumarate 50 MG TABLET PO ×3 (08:16→19:37)
[2023-05-27 11:25] LABS: Glucose, Whole Blood 118 mg/dL (60-115)
--- NOTE | 2023-05-27 13:42 | MHC.CM.PN ---
Addendum entered by Diamante Stallings 05/27/23 13:50: KAMILA SPOKE TO MIKO AND INFORMED HIM PT WILL BE CLEARED TO DC TOMORROW, HE REPORTS BEING AGREEABLE TO HER RETURNING HOME HE ASKS THAT BLS TRANSPORT BE ARRANGED FOR THE AFTERNOON CURRENT PLAN IS BLS TRANSPORT VIA [facility] AT 1500 PENDING MD CLEARANCE PREVIOUS SERVICES TO RESUME Original Note: KAMILA RECEIVED A CALL FROM [facility] TODAY STATING PTS S/O/HCP, MIKO, HAS STATED HE CANNOT TAKE PT HOME AGAIN A BROAD SNF REFERRAL WAS MADE PT HAS HISTORICALLY BEEN DIFFICULT TO PLACE
[2023-05-27 16:13] LABS: Glucose, Whole Blood 114 mg/dL (60-115)
[2023-05-27] MEDS: Aspirin Enteric Coated 81 MG TABLET.DR PO (19:36)
[2023-05-27] MEDS: Montelukast Sodium 10 MG TABLET PO (19:36)
[2023-05-27] MEDS: Enoxaparin Sodium 40 MG/0.4 ML SYRINGE SUBCUT (19:37)
[2023-05-27] MEDS: Pravastatin Sodium 20 MG TABLET PO (19:37)
[2023-05-27 19:48] LABS: Glucose, Whole Blood 118 mg/dL (60-115)
[2023-05-27] MEDS: Albuterol Sulfate (0.083%) 2.5 MG/3 ML VIAL.NEB INHALE (23:34)
[2023-05-27] MEDS: traZODone HCL 50 MG TABLET PO (23:51)
[2023-05-28] VITALS (7 sets, daily range): BP systolic 132–156; BP diastolic 64–71; PULSE 71–95; RESP 16–18; TEMP 36.4–36.6; O2SAT 95–100; BMI 29.1
[2023-05-28] MEDS: Omeprazole 40 MG CAPSULE.DR PO (05:35)
[2023-05-28 06:31] LABS: Anion Gap 14 (12-20); Blood Urea Nitrogen 15 mg/dL (9-16); Carbon Dioxide 26 mmol/L (22-29); Chloride 94 mmol/L (96-108); Creatinine Clr Calc Pharmacy 69.8; Estimated Glomerular Filt Rate > 60; Glucose Fasting 125 mg/dL (60-99); Potassium 4.7 mmol/L (3.3-5.1); Sodium 129 mmol/L (135-145)
[2023-05-28] MEDS: Albuterol/Iprat 2.5/0.5MG 3 ML AMPUL.NEB INHALE ×3 (07:33→19:03)
[2023-05-28] MEDS: Folic Acid 1 MG TABLET PO (07:46)
[2023-05-28] MEDS: Metoprolol Succinate ER 25 MG TAB.ER.24H PO (07:46)
[2023-05-28] MEDS: Thiamine HCL 100 MG TABLET PO (07:47)
[2023-05-28] MEDS: QUEtiapine Fumarate 50 MG TABLET PO ×3 (07:47→21:29)
[2023-05-28 08:13] LABS: Glucose, Whole Blood 122 mg/dL (60-115)
--- NOTE | 2023-05-28 08:19 | P.DS_ITS ---
DS: Providers Provider Date of Service: 05/28/23 Date of admission: 05/25/23 22:06 Primary care physician: Ryder Monique MD DS: Diagnosis Discharge Diagnosis (1) Acute hyponatremia: Status: Acute DS: Summary Hospital Course Hospital Course: from initial hpi: 68-year-old female? Armenian-speaking only with a past medical history of congestive heart failure, COPD, DANO, CAD, diabetes, hypertension,? and ETOH abuse and multiple admissions for hyponatremia who presented to the emergency room with complaints of high blood sugar and frequent urination.? In the emergency the patient's vital signs stable,? but laboratory data showed? sodium of 117? ( patient baseline 123-131). Blood glucose normal. She has no neurological? deficits.? ?? ED course: normal saline bolus We will admit into the ICU for management hyponatremia hospital course: Patient was admitted to the intensive care unit for acute severe hyponatremia due to beer potomania. She was monitor closely, given fluid restriction and solid diet. Sodium improved at an acceptable rate. At discharge it is 129. Patient should continue fluid restriction and avoid alcohol. For alcohol dependence she was monitor for withdrawal but did not display any symptoms. For diabetes she was continued on insulin. For COPD she remained stable. For chronic diastolic CHF she was euvolemic. Patient will be discharged to snf, will likely need less than 30 days. Time Spent with Patient Time attestation: Total time managing care of this patient today ____ minutes. Discharge coordination time: Greater than 30 minutes Quality: Safe Use of Opioids Does Pt have an Active Cancer Diagnosis on the Problem List?: No Quality: Stroke Does the patient have a stroke diagnosis?: No Physical Exam Vital Signs: Vital Signs: Last Vital Signs Temp 97.7 F 05/28/23 07:44 Pulse 84 05/28/23 07:44 Resp 18 05/28/23 07:44 BP 152/71 H 05/28/23 07:44 Pulse Ox 100 05/28/23 07:44 O2 Del Method Nasal Cannula 05/28/23 07:44 O2 Flow Rate 3 05/28/23 07:44 BMI result Body Mass Index 29.1 General: AO X 3, no acute distress Resp: CTA bilateral, no accessory muscles used CVS: S1,S2,RRR GI: soft, non tender, non distended Neuro: motor grossly intact, alert Psych: appropriate affect, appropriate insight DS: Data Data Completed and Pending Completed studies during hospitalization [Text1]: Procedures Detoxification Services for Substance Abuse Treatment (03/03/23) Insertion of Infusion Device into Superior Vena Cava, Percutaneous Approach (05/01/21) Labs on day of discharge: Laboratory Results - last 24 hr 05/27/23 05/27/23 05/27/23 11:15 16:08 19:44 Sodium Potassium Chloride Carbon Dioxide Anion Gap BUN Creatinine Estim Creat Clear Calc Estimated GFR POC Glucose 118 H 114 118 H Fasting Glucose Calcium 05/28/23 05/28/23 06:09 07:49 Sodium 129 L Potassium 4.7 Chloride 94 L Carbon Dioxide 26 Anion Gap 14 BUN 15 Creatinine 0.73 Estim Creat Clear Calc 69.8 Estimated GFR > 60 POC Glucose 122 H Fasting Glucose 125 H Calcium 9.0 Discharge Plan Discharge Anticipated Discharge Date/Time: 05/28/23 08:16 Patient Disposition: Home, Self-Care Discharge Diagnosis: hyponatremia Referrals: [facility] [Outside] - 3-5 Days Name,MD Ryder [Primary Care Provider] - 1 Week Discharge Medications: Continued quetiapine 50 mg tablet 50 mg PO TID multivitamin [Daily-Cony] Tablet 1 tab PO DAILY 30 Days Qty: 30 0RF acetaminophen 650 mg tablet extended release 1 tab PO BID PRN (Reason: pain) 30 Days Qty: 60 0RF baclofen 20 mg Tablet 20 mg PO DAILY PRN (Reason: Back Pain) 30 Days Qty: 30 0RF trazodone 50 mg tablet 1 tab PO BEDTIME PRN (Reason: insomnia) omeprazole 40 mg capsule,delayed release(DR/EC) 1 cap PO DAILY@0630 montelukast 10 mg tablet 1 tab PO BEDTIME pravastatin 20 mg tablet 1 tab PO BEDTIME metoprolol succinate 25 mg tablet extended release 24 hr 1 tab PO DAILY albuterol sulfate [Ventolin HFA] 90 mcg/actuation HFA aerosol inhaler 2 puff INHALATION Q4-6H PRN (Reason: Shortness Of Breath Or Wheezing) thiamine HCl (vitamin B1) 100 mg tablet 1 tab PO DAILY aspirin 81 mg tablet,delayed release (DR/EC) 1 tab PO BEDTIME folic acid 1 mg tablet 1 mg PO DAILY fluticasone propion-salmeterol [Advair Diskus] 250-50 mcg/dose blister with device 1 ea INHALATION BID sennosides [senna] 8.6 mg tablet 8.6 mg PO BID PRN (Reason: constipation) ondansetron HCl 4 mg tablet 4 mg PO BID PRN (Reason: nausea) ferrous sulfate [FeroSul] 325 mg (65 mg iron) tablet 325 mg PO DAILY albuterol sulfate 2.5 mg /3 mL (0.083 %) solution for nebulization 2.5 mg inhalation Q4-6H PRN (Reason: Wheezing) famotidine 20 mg tablet 20 mg PO BID acamprosate 333 mg tablet,delayed release (DR/EC) 666 mg PO TID Incruse Ellipta 62.5 mcg/actuation blister with device 1 inh inhalation DAILY Discharge Orders: Discharge Order (Routine); Ordered 05/28/23 Ordered By: Chauncey Salomon Diet: fuid restrict Activity on Discharge: As tolerated Stand Alone Forms: Patient Portal Discharge page Care Plan Goals: recovery Health Concerns: etoh hyponatremia Plan of Treatment: avoid etoh, fluid restrict Assessment: see above
--- NOTE | 2023-05-28 09:51 | MHC.CM.PN ---
Addendum entered by Diamante Stallings 05/28/23 16:22: [facility] HAS RECEIVED INSURANCE AUTH, HOWEVER THEY ARE UNABLE TO TAKE THE PT PRIOR TO TOMORROW MORNING PT WILL BE BOOKED FOR 1000 HOURS BLS TRANSPORT ON Wednesday05/29/23 Addendum entered by Diamante Stallings 05/28/23 13:35: CM RECEIVED ANOTHER CALL FROM [facility] SAYING THE PTS HCP CALLED AGAIN TODAY SAYING HE CANNOT CARE FOR PT AND WANTS HER TO GO TO [facility] CM INFORMED THEM THERE WAS A BED OFFER PENDING A PT EVAL PT EVAL COMPLETED AND SENT TO [facility] THEY HAVE SUBMITTED FOR INSURANCE AUTH CM CALLED MIKO AND LEFT ANOTHER VM INFORMING HIM PT WOULD BE GOING TO [facility] ONCE AUTH WAS OBTAINED Addendum entered by Diamante Stallings 05/28/23 10:28: VM MESSAGE LEFT FOR HCP/CAREGIVER, [facility] [phone] CONFIRMING BLS TRANSPORT HAS BEEN ARRANGED FOR 1500 HOURS PER YESTERDAYS DISCUSSION. CM CONTACT INFO LEFT FOR RETURN CALL Addendum entered by Diamante Stallings 05/28/23 09:53: ZAHRA HENNESSY UPDATED VIA [facility] [facility] SENT Original Note: PT MEDICALLY CLEARED TO DC TODAY, HOME WITH RESUMPTION OF SERVICES BASED ON CONVERSATION WITH PTS HCP/CAREGIVER YESTERDAY, BLS TRANSPORT ARRANGED FOR 1500 HOURS
[2023-05-28 11:47] LABS: Glucose, Whole Blood 122 mg/dL (60-115)
[2023-05-28 16:14] LABS: Glucose, Whole Blood 113 mg/dL (60-115)
[2023-05-28] MEDS: Pravastatin Sodium 20 MG TABLET PO (21:29)
[2023-05-28] MEDS: Montelukast Sodium 10 MG TABLET PO (21:29)
[2023-05-28] MEDS: Aspirin Enteric Coated 81 MG TABLET.DR PO (21:29)
[2023-05-28 22:20] LABS: Glucose, Whole Blood 155 mg/dL (60-115)
[2023-05-28] MEDS: Enoxaparin Sodium 40 MG/0.4 ML SYRINGE SUBCUT (23:06)
[2023-05-29] MEDS: Omeprazole 40 MG CAPSULE.DR PO (05:54)
[2023-05-29 06:00] VITALS: BP 124/86; PULSE 85; RESP 18; TEMP 36.9; O2SAT 95
[2023-05-29 07:50] VITALS: BP 145/65; PULSE 97; RESP 20; TEMP 36.3; O2SAT 96
[2023-05-29] MEDS: Albuterol/Iprat 2.5/0.5MG 3 ML AMPUL.NEB INHALE (07:52)
[2023-05-29 07:53] VITALS: PULSE 89; RESP 18; O2SAT 95
[2023-05-29 08:08] LABS: Glucose, Whole Blood 125 mg/dL (60-115)
[2023-05-29] MEDS: Thiamine HCL 100 MG TABLET PO (08:12)
[2023-05-29] MEDS: Folic Acid 1 MG TABLET PO (08:12)
[2023-05-29] MEDS: Metoprolol Succinate ER 25 MG TAB.ER.24H PO (08:12)
[2023-05-29] MEDS: QUEtiapine Fumarate 50 MG TABLET PO (08:12)
--- NOTE | 2023-05-29 08:37 | MHC.CM.PN ---
PT WILL DC TO [facility] TODAY AT 1100 HOURS VIA [facility] HCP NOTIFIED YESTERDAY VIA VM, IMM ALSO DELIVERED
[2023-05-29 11:32] LABS: Glucose, Whole Blood 149 mg/dL (60-115)
== END 2023-05-29 12:25 | disposition skilled nursing facility (03) | DRG 641 ==
LOC: HO.ED 21:00 → HO.EDOVER 22:13 → HO.ICU 22:51 → HO.S3 05-26 10:30
PROVIDERS: Internal Medicine Pulmonary Disease; Admitting Provider Registered Nurse Community Health; Emergency Provider Emergency Medicine; PCP Internal Medicine Geriatric Medicine; Visit Provider Internal Medicine
DX: E87.1 Hypo-osmolality and hyponatremia (principal); I50.32 Chronic diastolic (congestive) heart failure; F31.9 Bipolar disorder, unspecified; I25.10 Atherosclerotic heart disease of native coronary artery without angina pectoris; J44.9 Chronic obstructive pulmonary disease, unspecified; F10.20 Alcohol dependence, uncomplicated; F03.90 Unspecified dementia, unspecified severity, without behavioral disturbance, psychotic disturbance, mood disturbance, and anxiety; F17.210 Nicotine dependence, cigarettes, uncomplicated; Z71.6 Tobacco abuse counseling; Z79.51 Long term (current) use of inhaled steroids; Z79.82 Long term (current) use of aspirin; Z79.899 Other long term (current) drug therapy; I11.0 Hypertensive heart disease with heart failure
CPT/HCPCS: 36415; 71046; 80048; 80053; 82040; 82803; 82947; 83735; 84100; 85025; 94640; 97162; 99284; J1650; P9047

== ENCOUNTER → 2023-05-25 22:06 | Outpatient (BNV) | payer OTHER, SELFPAY | PROVIDERS: Admitting Provider Registered Nurse Community Health; Emergency Provider Emergency Medicine; Visit Provider Internal Medicine Pulmonary Disease | DX: E87.1 Hypo-osmolality and hyponatremia (principal); E11.9 Type 2 diabetes mellitus without complications; F10.90 Alcohol use, unspecified, uncomplicated; J44.9 Chronic obstructive pulmonary disease, unspecified | CPT/HCPCS: 99233 ==

== ENCOUNTER → 2023-05-25 22:06 | Outpatient (BNV) | payer OTHER, SELFPAY | PROVIDERS: Admitting Provider Registered Nurse Community Health; Emergency Provider Emergency Medicine; Visit Provider Registered Nurse Community Health | DX: E87.1 Hypo-osmolality and hyponatremia (principal); E11.9 Type 2 diabetes mellitus without complications; F10.90 Alcohol use, unspecified, uncomplicated | CPT/HCPCS: 99221 ==

== ENCOUNTER → 2023-05-25 22:06 | Outpatient (BNV) | payer OTHER, SELFPAY | PROVIDERS: Admitting Provider Registered Nurse Community Health; Emergency Provider Emergency Medicine; Visit Provider Internal Medicine | DX: E87.1 Hypo-osmolality and hyponatremia (principal) | CPT/HCPCS: 99232; 99239 ==

== ENCOUNTER 2023-06-17 13:50 | Outpatient (REF) | payer OTHER, SELFPAY ==
--- NOTE | ~2023-06-17 | XR_ITS ---
EXAMINATION: XR SHOULDER, RIGHT CLINICAL INFORMATION: Chronic shoulder pain. COMPARISON: Right shoulder November 02, 2022, June 01, 2021 TECHNIQUE: Three views of the right shoulder. FINDINGS: Chronic marked deformity with degenerative change of the glenohumeral joint. There is remodeling of the articular surface of the humeral head and glenoid with marginal bone spurs as well as subchondral cystic and osteosclerotic changes. There is irregularity and flattening of the greater tuberosity of the humeral head with subchondral osteosclerosis. There are are multiple surrounding ossified loose bodies in the joint space and probable joint effusion. Appearance is unchanged since prior study November 02, 2022. No acute abnormality. Mild degenerative joint disease of the acromioclavicular joint. XR/XR shoulder RT min 2V IMPRESSION: Chronic marked degenerative change of the glenohumeral joint. Multiple ossified loose bodies in the joint space and probable joint effusion.
--- NOTE | ~2023-06-17 | XR_ITS ---
EXAMINATION: XR SHOULDER, LEFT CLINICAL INFORMATION: Chronic shoulder pain. History of abscess left shoulder. COMPARISON: Chest x-ray May 25, 2023. Left shoulder May 06, 2023, November 02, 2022, September 05, 2022 TECHNIQUE: Three views of the left shoulder. FINDINGS: There is chronic deformity of the humeral head and glenoid. There is flattening of the articular surface of both the glenoid and humeral head with subchondral cystic and osteosclerotic changes. Marginal spurring of the inferior glenoid and inferior humeral head. Minor degenerative spurring at the acromioclavicular joint. No acute abnormality. No displaced fracture. No dislocation. XR/XR shoulder LT min 2V IMPRESSION: 1. No acute abnormality. 2. Chronic deformity of the humeral head and glenoid. Degenerative joint disease of the glenohumeral joint.
[2023-06-17 16:29] LABS: Alanine Aminotransferase 8 U/L (0-31); Albumin Level 3.7 g/dL (3.5-5.0); Alkaline Phosphatase 93 U/L (39-117); Anion Gap 17 (12-20); Aspartate Amino Transferase 16 U/L (5-31); Bilirubin Total 0.5 mg/dL (0.0-1.0); Blood Urea Nitrogen 12 mg/dL (9-16); Calcium 9.6 mg/dL (8.4-10.2); Carbon Dioxide 21 mmol/L (22-29); Chloride 98 mmol/L (96-108); Estimated Glomerular Filt Rate 58; Glucose Random 73 mg/dL (60-115); Potassium 4.9 mmol/L (3.3-5.1); Sodium 131 mmol/L (135-145); Total Protein 7.3 g/dL (6.5-8.0)
== END 2023-06-17 13:51 | disposition home or self-care (01) ==
LOC: HO.HHCL 13:50
PROVIDERS: Visit Provider Registered Nurse
DX: E87.1 Hypo-osmolality and hyponatremia (principal); M25.512 Pain in left shoulder; M25.511 Pain in right shoulder; G89.29 Other chronic pain; Z87.39 Personal history of other diseases of the musculoskeletal system and connective tissue
CPT/HCPCS: 36415; 73030; 80053

== ENCOUNTER 2023-07-01 15:41 | Inpatient (IN) | payer OTHER, SELFPAY ==
[2023-07-01 15:53] VITALS: BP 140/70; PULSE 87; O2SAT 97
[2023-07-01 15:55] VITALS: BP 151/81; PULSE 74; RESP 16; TEMP 36.5; O2SAT 97; BMI 34.6
[2023-07-01 17:16] LABS: Alanine Aminotransferase 7 U/L (0-31); Albumin Level 3.5 g/dL (3.5-5.0); Alkaline Phosphatase 92 U/L (39-117); Anion Gap 22 (12-20); Aspartate Amino Transferase 16 U/L (5-31); Bilirubin Total 0.4 mg/dL (0.0-1.0); Blood Urea Nitrogen 16 mg/dL (9-16); Calcium 9.2 mg/dL (8.4-10.2); Carbon Dioxide 15 mmol/L (22-29); Chloride 89 mmol/L (96-108); Creatinine Clr Calc Pharmacy 42.1; Estimated Glomerular Filt Rate 51; Glucose Random 123 mg/dL (60-115); Potassium 4.5 mmol/L (3.3-5.1); Sodium 121 mmol/L (135-145)
--- NOTE | 2023-07-01 17:36 | ED.GENADULT ---
HPI - General Adult General Chief complaint: Nausea/Vomiting/Diarrhea Stated complaint: Nausea,vomiting x3days, sodium @120 per ems Time Seen by Provider: 07/01/23 16:16 Source: patient Mode of arrival: EMS Limitations: no limitations History of Present Illness HPI narrative: Patient comes to emergency room from home, seems that patient has been nauseous and vomiting for about 3 days. Today, patient had lab work done, received a phone call at home to let her know that her sodium was 120 and needed to come to the emergency room. Patient states that other than feeling nauseous, she feels well, does not feel confused. Patient states she has had low sodium multiple times in the past. Admits to drinking alcohol, states she did not drink today but yesterday had her usual 5 beers Related Data Home Medications Medication Instructions Recorded Confirmed quetiapine 50 mg tablet 50 mg PO TID 07/26/22 05/25/23 albuterol sulfate 90 mcg/actuation 2 puff inhalation Q4-6H PRN 11/26/22 05/25/23 aerosol inhaler (Ventolin HFA) Shortness Of Breath Or Wheezing aspirin 81 mg tablet,delayed 1 tab PO BEDTIME 11/26/22 05/25/23 release folic acid 1 mg tablet 1 mg PO DAILY 11/26/22 05/25/23 metoprolol succinate 25 mg 1 tab PO DAILY 11/26/22 05/25/23 tablet,extended release 24 hr montelukast 10 mg tablet 1 tab PO BEDTIME 11/26/22 05/25/23 omeprazole 40 mg capsule,delayed 1 cap PO DAILY@0630 11/26/22 05/25/23 release pravastatin 20 mg tablet 1 tab PO BEDTIME 11/26/22 05/25/23 thiamine HCl (vitamin B1) 100 mg 1 tab PO DAILY 11/26/22 05/25/23 tablet trazodone 50 mg tablet 1 tab PO BEDTIME PRN insomnia 11/26/22 05/25/23 ferrous sulfate 325 mg (65 mg 325 mg PO DAILY 01/31/23 05/25/23 iron) tablet (FeroSul) fluticasone 250 mcg-salmeterol 50 1 ea inhalation BID 01/31/23 05/25/23 mcg/dose blistr powdr for inhalation (Advair Diskus) ondansetron HCl 4 mg tablet 4 mg PO BID PRN nausea 01/31/23 05/25/23 sennosides 8.6 mg tablet (senna) 8.6 mg PO BID PRN constipation 01/31/23 05/25/23 acamprosate 333 mg tablet,delayed 666 mg PO TID 05/25/23 05/25/23 release albuterol sulfate 2.5 mg/3 mL 2.5 mg inhalation Q4-6H PRN 05/25/23 05/25/23 (0.083 %) solution for nebulization Wheezing famotidine 20 mg tablet 20 mg PO BID 05/25/23 05/25/23 umeclidinium 62.5 mcg/actuation 1 inh inhalation DAILY 05/25/23 05/25/23 blister powder for inhalation (Incruse Ellipta) Previous Rx's Medication Instructions Recorded acetaminophen 650 mg 1 tab PO BID PRN pain 30 days #60 04/29/22 tablet,extended release tabs baclofen 20 mg tablet 20 mg PO DAILY PRN Back Pain 30 04/29/22 days #30 tabs multivitamin (Daily-Cony tablet) 1 tab PO DAILY 30 days #30 tabs 04/29/22 Allergies Allergy/AdvReac Type Severity Reaction Status Date / Time fluticasone Allergy Unknown Verified 11/25/22 17:15 [From Advair Diskus] salmeterol Allergy Unknown Verified 11/25/22 17:15 [From Advair Diskus] paroxetine [From Paxil] AdvReac Intermediate Nausea and Verified 11/25/22 17:15 Vomiting Review of Systems Review of Systems: Constitutional : No Weight loss, No Fever, No Chills, No Night Sweats, No Fatigue, No Malaise ENT/Mouth : No Hearing loss, No Ear Pain, No Nasal Congestion, No Sinus Pain, No Hoarseness, No sore throat, No Rhinorrhea, No Swallowing Difficulty Eyes: No Eye Pain, No Swelling, No Redness, No Foreign Body, No Discharge, No Vision Changes Cardiovascular : No Chest Pain, No SOB, No Dyspnea on Exertion, No Orthopnea, No Edema, No Palpitations Respiratory : No Cough, No Sputum, No Wheezing, No Smoke Exposure, No Dyspnea Gastrointestinal : Patient complaining of nausea, no vomiting for over 24 hours No Diarrhea, No Constipation, No abdominal Pain, No Hematochezia, No Melena Genitourinary : no irregular bleeding, No Dysuria, No Urinary Frequency, No Hematuria, No Urinary Incontinence, No Urgency, No Flank Pain, No Urinary Flow Changes, No Hesitancy Musculoskeletal : No joint pain, No Myalgias, No Joint Swelling Skin : No Skin Lesions, No rash Neuro : No Weakness, No Numbness, No Paresthesias, No Loss of Consciousness, No Dizziness, No Headache Psych : No Anxiety/Panic, No Depression, No SI/HI/AH/VH, No Social Issues, Heme/Lymph: No Bruising, No Bleeding,No Lymphadenopathy Endocrine : No Polyuria, No Polydipsia, No Temperature Intolerance [facility] Past Medical History Medical History COPD (chronic obstructive pulmonary disease) Effusion of shoulder joint, left Mass of joint of left shoulder Cannabis use disorder, moderate, dependence Dementia Korsakoff disease Chronic hyponatremia Schizophrenia Congestive heart failure Bipolar 1 disorder Osteoarthritis COPD (chronic obstructive pulmonary disease) Hypertension Diabetes Coronary artery disease Sleep apnea Alcohol use disorder Surgical History Hx of appendectomy Family History Family History Sister Breast cancer, Onset Age: 40 Sister Breast cancer, Onset Age: 50 Social History Social History Household Members: Spouse Housing: Apartment Do you presently have visiting nurse or other home services: No Alcohol intake: current Alcohol intake frequency: a few times a week Alcohol type: beer Patient Tobacco Use Status: Current everyday Tobacco user Tobacco use type: Cigarette Cigarettes Per Day: 5 Years Smoked: 53 Smoked in Last 30 Days: Yes e-Cigarette/Vaping Use: Never Used Second Hand Smoke Exposure: Yes Use of substances other than those prescribed or required for medical reasons: No Substance Use Type: Marijuana Advance Directives: Yes Advance Directives on File: Yes Advance Directives Date on File: 10/10/20 service: No Current occupational status: unemployed, disabled and other Sexual orientation: Straight/Heterosexual Physical Exam ED Vital Signs: Vital Signs - 24 hr 07/01/23 15:55 Temperature 97.7 F Pulse Rate 74 Respiratory Rate 16 Blood Pressure 151/81 H Pulse Oximetry 97 Oxygen Delivery Method Room Air BMI result Body Mass Index 34.6 Const Other: Appearance: Alert. Oriented X3. No acute distress. Eyes: Pupils equal, round and reactive to light. ENT: Pharynx normal. Neck: Normal inspection. Neck supple. No lymph nodes noted. No crepitus CVS: Normal heart rate and rhythm. Pulses normal. Normal S1 and S2 Respiratory: No respiratory distress. Breath sounds normal. No Wheezing. No rales Abdomen: Soft and nontender. No rigidity. No distention. Skin: Skin warm and dry. Normal skin color. Normal skin turgor. Extremities: No lower extremity edema. No Lacerations. No Rash Neuro: Oriented X 3. No motor deficit. No sensory deficit. Moving all extremities. No slurred speech. CN 2 through 12 grossly intact Psych: calm, cooperative, normal affect Medical Decision Making Medical Decision Making 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 Patient is awake, alert -patient's hyponatremia secondary to alcohol intake. -I discussed the patient with Dr. Burnham, patient to remain in fluid restriction. Patient will be admitted. Patient aware of plan and agrees. Differential Diagnosis Differential Diagnoses: The differential diagnosis associated with the presentation includes (Hyponatremia, secondary to large amount of fluids intake, alcohol intake, low sodium intake) Admission/Observation Consideration of admission/observation: Escalation of care including admission/observation considered Consult Healthcare Provider Management of the patient was discussed with: Hospitalist Lab Data [facility] Lab Attestation statement: I reviewed the patient's lab results. 07/01/23 16:46 07/01/23 16:46 Labs: Lab Results 07/01/23 Range/Units 16:46 WBC 4.0 L (4.8-10.8) X10*3/uL RBC 3.72 L (4.20-5.50) X10*6/uL Hgb 11.4 L (12.0-16.0) g/dl Hct 31.4 L (37.0-47.0) % MCV 84.4 (80.0-98.0) fL MCH 30.6 (27.0-33.0) pg MCHC 36.3 H (31.0-35.0) g/dl RDW 14.5 (11.0-16.0) % Plt Count 232 (160-400) X10*3/uL MPV 8.9 L (9.4-12.3) fL Immature Gran % (Auto) Cancelled Neut % (Auto) Cancelled Lymph % (Auto) Cancelled [place] % (Auto) Cancelled Eos % (Auto) Cancelled Baso % (Auto) Cancelled Lymph # (Auto) Cancelled [place] # (Auto) Cancelled Eos # (Auto) Cancelled Baso # (Auto) Cancelled Abs Immat Gran (auto) Cancelled Absolute Neuts (auto) Cancelled Absolute Nucleated RBC 0.000 (0.0-0.012) X10*3/uL Nucleated RBC % (auto) 0.0 (0.0-0.2) /100WBC Neutrophils % (Manual) 67 (45-73) % Band Neutrophils % 3 (3-5) % Lymphocytes % (Manual) 16 L (20-40) % Atypical Lymphs % (Man) 3 (0-6) % Monocytes % (Manual) 10 (2-11) % Eosinophils % (Manual) 1 (0-4) % Abs Neuts (Manual) 2.8 (2.0-8.3) X10*3/uL Lymphocytes # (Manual) 0.6 L (1.2-4.9) X10*3/uL Atyp Lymphs # (Manual) 0.1 x10*3/uL Monocytes # (Manual) 0.4 (0.1-1.2) X10*3/uL Toxic Vacuolation PRESENT Platelet Estimate NORMAL (NORMAL) Plt Morphology Comment NORMAL RBC Morphology NOTED Farhan Cells 1+ (0-2) /OIF Sodium 121 L (135-145) mmol/L Potassium 4.5 (3.3-5.1) mmol/L Chloride 89 L (96-108) mmol/L Carbon Dioxide 15 L (22-29) mmol/L Anion Gap 22 H (12-20) BUN 16 (9-16) mg/dL Creatinine 1.07 (0.5-1.4) mg/dL Estim Creat Clear Calc 42.1 Estimated GFR 51 Random Glucose 123 H (60-115) mg/dL Calcium 9.2 (8.4-10.2) mg/dL Total Bilirubin 0.4 (0.0-1.0) mg/dL AST 16 (5-31) U/L ALT 7 (0-31) U/L Alkaline Phosphatase 92 (39-117) U/L Total Protein 7.0 (6.5-8.0) g/dL Albumin 3.5 (3.5-5.0) g/dL External Record Review External record reviewed: Inpatient record (Patient has had low sodium in the past, close to 100) Critical Care Time Critical Care Time Critical Care Time: Yes Total Critical Care Time: 60 Attestation: Please follow-up with your primary care physician tomorrow. If you have any worsening or new symptoms, please return to the emergency room or call 911 Discharge Plan Discharge Clinical Impression: Acute hyponatremia Patient Disposition: Admitted As Inpatient Prescriptions: No Action quetiapine 50 mg tablet 50 mg PO TID multivitamin [Daily-Cony] Tablet 1 tab PO DAILY 30 Days Qty: 30 0RF acetaminophen 650 mg tablet extended release 1 tab PO BID PRN (Reason: pain) 30 Days Qty: 60 0RF baclofen 20 mg Tablet 20 mg PO DAILY PRN (Reason: Back Pain) 30 Days Qty: 30 0RF trazodone 50 mg tablet 1 tab PO BEDTIME PRN (Reason: insomnia) omeprazole 40 mg capsule,delayed release(DR/EC) 1 cap PO DAILY@0630 montelukast 10 mg tablet 1 tab PO BEDTIME pravastatin 20 mg tablet 1 tab PO BEDTIME metoprolol succinate 25 mg tablet extended release 24 hr 1 tab PO DAILY albuterol sulfate [Ventolin HFA] 90 mcg/actuation HFA aerosol inhaler 2 puff INHALATION Q4-6H PRN (Reason: Shortness Of Breath Or Wheezing) thiamine HCl (vitamin B1) 100 mg tablet 1 tab PO DAILY aspirin 81 mg tablet,delayed release (DR/EC) 1 tab PO BEDTIME folic acid 1 mg tablet 1 mg PO DAILY fluticasone propion-salmeterol [Advair Diskus] 250-50 mcg/dose blister with device 1 ea INHALATION BID sennosides [senna] 8.6 mg tablet 8.6 mg PO BID PRN (Reason: constipation) ondansetron HCl 4 mg tablet 4 mg PO BID PRN (Reason: nausea) ferrous sulfate [FeroSul] 325 mg (65 mg iron) tablet 325 mg PO DAILY albuterol sulfate 2.5 mg /3 mL (0.083 %) solution for nebulization 2.5 mg inhalation Q4-6H PRN (Reason: Wheezing) famotidine 20 mg tablet 20 mg PO BID acamprosate 333 mg tablet,delayed release (DR/EC) 666 mg PO TID Incruse Ellipta 62.5 mcg/actuation blister with device 1 inh inhalation DAILY
--- NOTE | 2023-07-01 19:08 | PM.IMHP ---
History of Present Illness Date of Service: 07/01/23 Chief Complaint: nausea and vomiting 68-year-old female with past medical history of bipolar 1 disorder, chronic hyponatremia, CHF, COPD, CAD, diabetes, dementia, HTN, schizophrenia, alcohol and substance use desorder presenting with nausea and vomitting for about 3 days and had lab done and noted to have sodium of 120, and called to come to ED where repeat lab is 121. Claims she has drank since wednesday, although she told ED provider she had her usual 5 beers yesterday. Not confused and otherwise has no complaint other than some abdominal discomfort. Review of Systems Review of Systems: Gen: no fever Resp: no sob, no cough CV: no chest, no VALE, no leg edema GI: + n/v, + abd pain Neuro: No confusion Yes all other systems are reviewed and are negative [facility] Medical History COPD (chronic obstructive pulmonary disease) Effusion of shoulder joint, left Mass of joint of left shoulder Cannabis use disorder, moderate, dependence Dementia Korsakoff disease Chronic hyponatremia Schizophrenia Congestive heart failure Bipolar 1 disorder Osteoarthritis COPD (chronic obstructive pulmonary disease) Hypertension Diabetes Coronary artery disease Sleep apnea Alcohol use disorder Family History Sister Breast cancer, Onset Age: 40 Sister Breast cancer, Onset Age: 50 Surgical History Hx of appendectomy Social History Household Members: Spouse Household Members Other:: 2 Housing: Apartment Do you 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) Alcohol intake: current Alcohol intake frequency: a few times a week Alcohol type: beer Patient Tobacco Use Status: Current everyday Tobacco user Tobacco use type: Cigarette Cigarette Packs Per Day: 0.5 Cigarettes Per Day: 10.0 Years Smoked: 53 Smoked in Last 30 Days: Yes e-Cigarette/Vaping Use: Never Used Patient Interested in Nicotine Replacement: No Patient Given Instructions on How to Stop Smoking: Yes Date Education Initiated: 07/02/23 Second Hand Smoke Exposure: Yes Use of substances other than those prescribed or required for medical reasons: Yes Substance Use Type: Marijuana Substance Use Frequency: Daily Last Used Substance: Just Prior to Admission Currently Displaying Signs/Symptoms of Drug Intoxication Withdrawal: No Any prior treatment program specific to substance use: No Have you been hit, kicked, punched, or otherwise hurt by someone within the past year? If so, by whom?: No Do you feel safe in your current relationship?: Yes Is there a partner from a previous relationship who is making you feel unsafe now?: No Are you made to feel afraid or neglected: No Advance Directives: Yes Advance Directives on File: Yes Advance Directives Date on File: 10/10/20 Do you have thoughts of harming others: None Do you have a plan to hurt others: No Plan Recently lost weight without trying: No Eating poorly because of decreased appetite: No Nutrition Risks: No Nutritional Risk Patient : No service: No Current occupational status: unemployed, disabled and other Sexual orientation: Straight/Heterosexual Meds Allergies Allergy/AdvReac Type Severity Reaction Status Date / Time fluticasone Allergy Unknown Verified 11/25/22 17:15 [From Advair Diskus] salmeterol Allergy Unknown Verified 11/25/22 17:15 [From Advair Diskus] paroxetine [From Paxil] AdvReac Intermediate Nausea and Verified 11/25/22 17:15 Vomiting Home Medications Medication Instructions Recorded Confirmed Last Taken Type quetiapine 50 mg tablet 50 mg PO TID 07/26/22 07/01/23 Unknown History albuterol sulfate 90 mcg/actuation 2 puff inhalation Q4-6H PRN 11/26/22 07/01/23 Unknown History aerosol inhaler (Ventolin HFA) Shortness Of Breath Or Wheezing aspirin 81 mg tablet,delayed 1 tab PO BEDTIME 11/26/22 07/01/23 Unknown History release folic acid 1 mg tablet 1 mg PO DAILY 11/26/22 07/01/23 Unknown History metoprolol succinate 25 mg 1 tab PO DAILY 11/26/22 07/01/23 Unknown History tablet,extended release 24 hr montelukast 10 mg tablet 1 tab PO BEDTIME 11/26/22 07/01/23 Unknown History omeprazole 40 mg capsule,delayed 1 cap PO DAILY@0630 11/26/22 07/01/23 Unknown History release pravastatin 20 mg tablet 1 tab PO BEDTIME 11/26/22 07/01/23 Unknown History thiamine HCl (vitamin B1) 100 mg 1 tab PO DAILY 11/26/22 07/01/23 Unknown History tablet trazodone 50 mg tablet 1 tab PO BEDTIME PRN insomnia 11/26/22 07/01/23 Unknown History ferrous sulfate 325 mg (65 mg 325 mg PO DAILY 01/31/23 07/01/23 Unknown History iron) tablet (FeroSul) fluticasone 250 mcg-salmeterol 50 1 ea inhalation BID 01/31/23 07/01/23 Unknown History mcg/dose blistr powdr for inhalation (Advair Diskus) ondansetron HCl 4 mg tablet 4 mg PO BID PRN nausea 01/31/23 07/01/23 Unknown History sennosides 8.6 mg tablet (senna) 8.6 mg PO BID PRN constipation 01/31/23 07/01/23 Unknown History acamprosate 333 mg tablet,delayed 666 mg PO TID 05/25/23 07/01/23 Unknown History release albuterol sulfate 2.5 mg/3 mL 2.5 mg inhalation Q4-6H PRN 05/25/23 07/01/23 Unknown History (0.083 %) solution for nebulization Wheezing famotidine 20 mg tablet 20 mg PO BID 05/25/23 07/01/23 Unknown History umeclidinium 62.5 mcg/actuation 1 inh inhalation DAILY 05/25/23 07/01/23 Unknown History blister powder for inhalation (Incruse Ellipta) Physical Exam Vital Signs and Narrative: Vital Signs: Last Vital Signs Temp 97.7 F 07/01/23 15:55 Pulse 74 07/01/23 15:55 Resp 16 07/01/23 15:55 BP 151/81 H 07/01/23 15:55 Pulse Ox 97 07/01/23 15:55 O2 Del Method Room Air 07/01/23 15:55 BMI result Body Mass Index 34.6 Const: Other: Constitutional: Alert, in no distress Mental Status: Oriented to person, place and time. Eyes: Pupils are equal, round and reactive to light. Ear, Nose and Throat: Oropharynx clear, mucous membranes moist. Respiratory: Clear to auscultation. No wheezing, rales or rhonchi. Cardiovascular: S1 S2 regular. No murmurs, rubs or gallops. Gastrointestinal: Abdomen soft, non-tender, non-distended. Normal bowel sounds.? Neurologic: Cranial nerves II-XII grossly intact. No focal neurological deficits. Moves all extremities spontaneously.? Skin: No rashes or lesions.? Musculoskeletal: No cyanosis or clubbing. Psychiatric: Normal mood and affect? Results Labs 07/01/23 16:46 07/02/23 08:13 Labs: Laboratory Results - last 24 hr 07/01/23 07/01/23 16:46 17:57 MCV 84.4 MCH 30.6 MCHC 36.3 H RDW 14.5 Plt Count 232 MPV 8.9 L Immature Gran % (Auto) Cancelled Neut % (Auto) Cancelled Lymph % (Auto) Cancelled [place] % (Auto) Cancelled Eos % (Auto) Cancelled Baso % (Auto) Cancelled Lymph # (Auto) Cancelled [place] # (Auto) Cancelled Eos # (Auto) Cancelled Baso # (Auto) Cancelled Abs Immat Gran (auto) Cancelled Absolute Neuts (auto) Cancelled Absolute Nucleated RBC 0.000 Nucleated RBC % (auto) 0.0 Neutrophils % (Manual) 67 Band Neutrophils % 3 Lymphocytes % (Manual) 16 L Atypical Lymphs % (Man) 3 Monocytes % (Manual) 10 Eosinophils % (Manual) 1 Abs Neuts (Manual) 2.8 Lymphocytes # (Manual) 0.6 L Atyp Lymphs # (Manual) 0.1 Monocytes # (Manual) 0.4 Toxic Vacuolation PRESENT Platelet Estimate NORMAL Plt Morphology Comment NORMAL RBC Morphology NOTED Farhan Cells 1+ (0-2) Anion Gap 22 H Estim Creat Clear Calc 42.1 Estimated GFR 51 Random Glucose 123 H Calcium 9.2 Total Bilirubin 0.4 AST 16 ALT 7 Alkaline Phosphatase 92 Total Protein 7.0 Albumin 3.5 Ethyl Alcohol < 10 Assessment and Plan (1) Acute hyponatremia: Status: Acute (2) Alcohol use disorder: Status: Acute Plan 68/F with PMH etoh dependence, COPD, DM, chronic diastolic chf, chronic hyponatremia here with nausea/vomitting,weakness and sodium of 121 Acute on hronic hyponatremia d/t beer potomania fluid restriction, frequent sodium level, nephro consult ? need for salt tab or urea DM--SSI, Etoh dependence check ciwa no withdrdawal COPD, no exacerbation, inhalers PRN Chronic diastolic chf. compensated Abdominal with n/v, rule any acute process with non contrast ct dvt prophyalxis - lovenox awaiting for med rec full code at least 2 midnights stay for severe hypOnatermia, Time Spent With Patient Time: Total time managing care of this patient today ____ minutes. Quality Stroke Does the patient have a stroke diagnosis?: No VTE Prior VTE?: No VTE Risk Level:: Medical - moderate - high VTE Device Contraindication: Treatment Not Indicated VTE Drug Contraindication: N/A - Med Ordered
--- NOTE | 2023-07-01 19:30 | PC.NURSE ---
This promotion writer assumed care at 1900 pt AOx3, primarily stateless speaking, pt speaking in full, clear sentences, pt reports last drink was wednesday. Pt Reporting burning and pain with urination. Incontinent care provided, UA ordered, pending collection.
--- NOTE | 2023-07-01 19:30 | PHA.MEDREC ---
Pharmacy Consult ? Medication Reconciliation Pharmacy has completed the medication reconciliation. Patient use medboxes from [facility] pharmacy. Utilized claim history and recent discharge summary. Katherine Irby, JavierD
[2023-07-01 19:48] VITALS: BP 137/77; PULSE 74; RESP 16; TEMP 36.7; O2SAT 98
[2023-07-01 20:00] VITALS: BP 144/81; PULSE 87; RESP 16; O2SAT 100
[2023-07-01 22:06] VITALS: BP 144/81; PULSE 70; RESP 18; TEMP 36.7; O2SAT 99
[2023-07-02] VITALS (7 sets, daily range): BP systolic 110–156; BP diastolic 66–84; PULSE 65–95; RESP 15–22; TEMP 35.9–36.7; O2SAT 95–98; BMI 33.0
[2023-07-02 03:32] LABS: Anion Gap 20 (12-20); Blood Urea Nitrogen 13 mg/dL (9-16); Calcium 9.5 mg/dL (8.4-10.2); Carbon Dioxide 19 mmol/L (22-29); Chloride 96 mmol/L (96-108); Creatinine Clr Calc Pharmacy 48.5; Estimated Glomerular Filt Rate 60; Glucose Random 92 mg/dL (60-115); Sodium 131 mmol/L (135-145)
--- NOTE | 2023-07-02 03:58 | PC.NURSE ---
Pt appears to be sleeping at this time, respiration rate equal, non labored. Pt awakens with verbal stimuli. Pt incontinent of urine, incontinent care provided, unable to give urine sample at this time, pt updated on plan of care.
--- NOTE | 2023-07-02 06:25 | PC.NURSE ---
Urine collected and sent to lab.
--- NOTE | 2023-07-02 14:20 | PM.DS ---
DS: Providers Provider Date of Service: 07/02/23 Date of admission: 07/01/23 19:20 Date of discharge: 07/02/23 Primary care physician: Ryder Monique MD Consults: 07/01/23 19:20 Consult to Nephrology Routine Consulting Provider: Colton Isaacs Reason for consultation: Hyponatremia 121, chronic Has provider been notified: No Attending physician on discharge: Adelaide Patiño Discharging clinician: Adelaide Patiño DS: Diagnosis Discharge Diagnosis (1) Acute hyponatremia: Status: Acute (2) Alcohol use disorder: Status: Acute DS: Summary Hospital Course Hospital Course: 68-year-old female with past medical history of bipolar 1 disorder, chronic hyponatremia, CHF, COPD, CAD, diabetes, dementia, HTN, schizophrenia, alcohol and substance use desorder presenting with nausea and vomitting for about 3 days and had lab done and noted to have sodium of 120, and called to come to ED where repeat lab is 121. Claims she has drank since wednesday, although she told ED provider she had her usual 5 beers yesterday. Not confused and otherwise has no complaint other than some abdominal discomfort. hospital course: Hyponatremia chronic: Possibly related to beer potomania. Seems to be improved with fluid restriction. Patient was strongly advised to abstain from alcohol . Discussed with Nephrology: Given 2 g tablet of sodium chloride, also staff a separate Alcohol use: Not in withdrawal, seems at baseline. Patient was strongly advised to abstain from alcohol. ct abd noted-mild distended urinary bladder: But PVR [place] patient does not have retention on bladder scan, and she is urinating well no abdominal pain. Renal function is also fine. Patient will be going home. Further management outpatient. Above management discussed the patient detail and she understand in agreement with the above plan, time spent 50 minute. Time Spent with Patient Time attestation: Total time managing care of this patient today ____ minutes. Discharge coordination time: Greater than 30 minutes Quality: Safe Use of Opioids Does Pt have an Active Cancer Diagnosis on the Problem List?: No Quality: Stroke Does the patient have a stroke diagnosis?: No Physical Exam Vital Signs: Vital Signs: Last Vital Signs Temp 97.4 F 07/02/23 11:35 Pulse 76 07/02/23 11:35 Resp 16 07/02/23 11:35 BP 156/84 H 07/02/23 11:35 Pulse Ox 98 07/02/23 11:35 O2 Del Method Room Air 07/02/23 11:35 BMI result Body Mass Index 33.0 Appearance: Alert.? Oriented X3.? not in distress.? cvs: rrr, [id number] , no murmur res: clear to auscultation ,no rhonchii or wheezing abd: no rebound or guarding ,nt, bs present. ext pulses present , no cyanosis. neuro: axo3 , nonfocal. DS: Data Data Completed and Pending Completed studies during hospitalization [Text1]: Procedures Detoxification Services for Substance Abuse Treatment (03/03/23) Insertion of Infusion Device into Superior Vena Cava, Percutaneous Approach (05/01/21) Labs on day of discharge: Laboratory Results - last 24 hr 07/01/23 07/01/23 07/01/23 16:46 17:57 23:09 WBC 4.0 L RBC 3.72 L Hgb 11.4 L Hct 31.4 L MCV 84.4 MCH 30.6 MCHC 36.3 H RDW 14.5 Plt Count 232 MPV 8.9 L Immature Gran % (Auto) Cancelled Neut % (Auto) Cancelled Lymph % (Auto) Cancelled [place] % (Auto) Cancelled Eos % (Auto) Cancelled Baso % (Auto) Cancelled Lymph # (Auto) Cancelled [place] # (Auto) Cancelled Eos # (Auto) Cancelled Baso # (Auto) Cancelled Abs Immat Gran (auto) Cancelled Absolute Neuts (auto) Cancelled Absolute Nucleated RBC 0.000 Nucleated RBC % (auto) 0.0 Neutrophils % (Manual) 67 Band Neutrophils % 3 Lymphocytes % (Manual) 16 L Atypical Lymphs % (Man) 3 Monocytes % (Manual) 10 Eosinophils % (Manual) 1 Abs Neuts (Manual) 2.8 Lymphocytes # (Manual) 0.6 L Atyp Lymphs # (Manual) 0.1 Monocytes # (Manual) 0.4 Toxic Vacuolation PRESENT Platelet Estimate NORMAL Plt Morphology Comment NORMAL RBC Morphology NOTED [place] Cells 1+ (0-2) Sodium 121 L 126 L Potassium 4.5 4.2 Chloride 89 L 94 L Carbon Dioxide 15 L 15 L Anion Gap 22 H 21 H BUN 16 14 Creatinine 1.07 0.91 Estim Creat Clear Calc 42.1 49.6 Estimated GFR 51 > 60 Random Glucose 123 H 92 Calcium 9.2 9.2 Total Bilirubin 0.4 AST 16 ALT 7 Alkaline Phosphatase 92 Total Protein 7.0 Albumin 3.5 Urine Color Urine Appearance Urine pH Ur Specific [place] Urine Protein Urine Glucose (UA) Urine Ketones Urine Blood Urine Nitrite Ur Leukocyte Esterase Urine RBC Urine WBC Ur Squamous Epith Cells Urine Bacteria Hyaline Casts Ethyl Alcohol < 10 07/02/23 07/02/23 07/02/23 03:00 06:31 08:13 WBC RBC Hgb Hct MCV MCH MCHC RDW Plt Count MPV Immature Gran % (Auto) Neut % (Auto) Lymph % (Auto) [place] % (Auto) Eos % (Auto) Baso % (Auto) Lymph # (Auto) [place] # (Auto) Eos # (Auto) Baso # (Auto) Abs Immat Gran (auto) Absolute Neuts (auto) Absolute Nucleated RBC Nucleated RBC % (auto) Neutrophils % (Manual) Band Neutrophils % Lymphocytes % (Manual) Atypical Lymphs % (Man) Monocytes % (Manual) Eosinophils % (Manual) Abs Neuts (Manual) Lymphocytes # (Manual) Atyp Lymphs # (Manual) Monocytes # (Manual) Toxic Vacuolation Platelet Estimate Plt Morphology Comment RBC Morphology [place] Cells Sodium 131 L 130 L Potassium 4.0 Chloride 96 Carbon Dioxide 19 L Anion Gap 20 BUN 13 Creatinine 0.93 Estim Creat Clear Calc 48.5 Estimated GFR 60 Random Glucose 92 Calcium 9.5 Total Bilirubin AST ALT Alkaline Phosphatase Total Protein Albumin Urine Color Yellow Urine Appearance Clear Urine pH 5.5 Ur Specific [place] <= 1.005 Urine Protein Negative Urine Glucose (UA) Negative Urine Ketones 15 Urine Blood Moderate (2+) H Urine Nitrite Negative Ur Leukocyte Esterase Trace H Urine RBC 6-10 H Urine WBC 0-5 Ur Squamous Epith Cells 0-2 Urine Bacteria None Seen Hyaline Casts 0-2 Ethyl Alcohol Imaging Chest x-ray: Radiologist's impression: ITS Impressions Abdomen/Pelvis CT 07/01/23 20:33 IMPRESSION: 1. Limited study due to motion. 2. Overdistended urinary bladder. 3. Diverticulosis, without diverticulitis. 4. Severe changes of osteoarthritis of bilateral hips. Fleischner guidelines were followed. Discharge Plan Discharge Anticipated Discharge Date/Time: 07/02/23 14:13 Patient Disposition: Home, Self-Care Discharge Diagnosis: Hyponatremia chronic, alcohol use Referrals: Name,MD Ryder [Primary Care Provider] - 1 Week Discharge Medications: Continued quetiapine 50 mg tablet 50 mg PO TID multivitamin [Daily-Cony] Tablet 1 tab PO DAILY 30 Days Qty: 30 0RF acetaminophen 650 mg tablet extended release 1 tab PO BID PRN (Reason: pain) 30 Days Qty: 60 0RF baclofen 20 mg Tablet 20 mg PO DAILY PRN (Reason: Back Pain) 30 Days Qty: 30 0RF trazodone 50 mg tablet 1 tab PO BEDTIME PRN (Reason: insomnia) omeprazole 40 mg capsule,delayed release(DR/EC) 1 cap PO DAILY@0630 montelukast 10 mg tablet 1 tab PO BEDTIME pravastatin 20 mg tablet 1 tab PO BEDTIME metoprolol succinate 25 mg tablet extended release 24 hr 1 tab PO DAILY albuterol sulfate [Ventolin HFA] 90 mcg/actuation HFA aerosol inhaler 2 puff INHALATION Q4-6H PRN (Reason: Shortness Of Breath Or Wheezing) thiamine HCl (vitamin B1) 100 mg tablet 1 tab PO DAILY aspirin 81 mg tablet,delayed release (DR/EC) 1 tab PO BEDTIME folic acid 1 mg tablet 1 mg PO DAILY fluticasone propion-salmeterol [Advair Diskus] 250-50 mcg/dose blister with device 1 ea INHALATION BID sennosides [senna] 8.6 mg tablet 8.6 mg PO BID PRN (Reason: constipation) ondansetron HCl 4 mg tablet 4 mg PO BID PRN (Reason: nausea) ferrous sulfate [FeroSul] 325 mg (65 mg iron) tablet 325 mg PO DAILY albuterol sulfate 2.5 mg /3 mL (0.083 %) solution for nebulization 2.5 mg inhalation Q4-6H PRN (Reason: Wheezing) famotidine 20 mg tablet 20 mg PO BID acamprosate 333 mg tablet,delayed release (DR/EC) 666 mg PO TID Incruse Ellipta 62.5 mcg/actuation blister with device 1 inh inhalation DAILY Discharge Orders: Discharge Order (Routine); Ordered 07/02/23 Ordered By: Adelaide Patiño Diet: Advance to usual diet Activity on Discharge: As tolerated Stand Alone Forms: Patient Portal Discharge page Care Plan Goals: Hyponatremia chronic: Possibly related to beer potomania. Seems to be improved with fluid restriction. Patient was strongly advised to abstain from alcohol . Alcohol use: Not in withdrawal, seems at baseline. Patient was strongly advised to abstain from alcohol. Patient will be going home. Further management outpatient. Health Concerns: As above. Plan of Treatment: As above. Assessment: As above.
--- NOTE | 2023-07-02 14:29 | HO.PM.IMPN ---
Subjective Subjective Date of Service: 07/02/23 Interval History: hyponatremia Physical Exam Vital Signs: Vital Signs: Last Vital Signs Temp 97.4 F 07/02/23 11:35 Pulse 76 07/02/23 11:35 Resp 16 07/02/23 11:35 BP 156/84 H 07/02/23 11:35 Pulse Ox 98 07/02/23 11:35 O2 Del Method Room Air 07/02/23 11:35 BMI result Body Mass Index 33.0 Objective Data Active Medications Acetaminophen (Acetaminophen 325 Mg Tablet) 650 mg PO Q6H PRN PRN Reason: Pain, Mild (Pain Scale 1-3) Al Hydroxide/Mg Hydroxide (Magnesium Hydrox/Alum Hydrox 30 Ml Oral.Susp) 30 ml PO Q4H PRN PRN Reason: Heartburn/Nausea Enoxaparin Sodium (Enoxaparin Sodium 40 Mg/0.4 Ml Syringe) 40 mg SUBCUT DAILY [facility] Last Admin: 07/02/23 14:22 Dose: Not Given Documented By: MICK Non-Admin Reason: Patient Refused Magnesium Hydroxide (Milk Of Magnesia 30 Ml Oral.Susp) 30 ml PO DAILY PRN PRN Reason: Constipation Melatonin (Melatonin 3 Mg Tablet) 3 mg PO BEDTIME PRN PRN Reason: Insomnia Ondansetron HCl (Ondansetron Hcl 4 Mg/2 Ml Vial) 4 mg IVPUSH Q8H PRN PRN Reason: Nausea and Vomiting Sodium Chloride (0.9 % Sodium Chloride Flush 3 Ml Syringe) 3 ml IVFLUSH QSHIFT [facility] Last Admin: 07/02/23 14:21 Dose: Not Given Documented By: MICK Non-Admin Reason: not my pt during this time Sodium Chloride (Sodium Chloride Tab 1 Gm Tablet) 2 gm PO ONCE ONE Stop: 07/02/23 14:27 Labs 07/01/23 16:46 07/02/23 08:13 Labs: Laboratory Results - last 24 hr 07/01/23 07/01/23 07/01/23 16:46 17:57 23:09 MCV 84.4 MCH 30.6 MCHC 36.3 H RDW 14.5 Plt Count 232 MPV 8.9 L Immature Gran % (Auto) Cancelled Neut % (Auto) Cancelled Lymph % (Auto) Cancelled [place] % (Auto) Cancelled Eos % (Auto) Cancelled Baso % (Auto) Cancelled Lymph # (Auto) Cancelled [place] # (Auto) Cancelled Eos # (Auto) Cancelled Baso # (Auto) Cancelled Abs Immat Gran (auto) Cancelled Absolute Neuts (auto) Cancelled Absolute Nucleated RBC 0.000 Nucleated RBC % (auto) 0.0 Neutrophils % (Manual) 67 Band Neutrophils % 3 Lymphocytes % (Manual) 16 L Atypical Lymphs % (Man) 3 Monocytes % (Manual) 10 Eosinophils % (Manual) 1 Abs Neuts (Manual) 2.8 Lymphocytes # (Manual) 0.6 L Atyp Lymphs # (Manual) 0.1 Monocytes # (Manual) 0.4 Toxic Vacuolation PRESENT Platelet Estimate NORMAL Plt Morphology Comment NORMAL RBC Morphology NOTED [place] Cells 1+ (0-2) Anion Gap 22 H 21 H Estim Creat Clear Calc 42.1 49.6 Estimated GFR 51 > 60 Random Glucose 123 H 92 Calcium 9.2 9.2 Total Bilirubin 0.4 AST 16 ALT 7 Alkaline Phosphatase 92 Total Protein 7.0 Albumin 3.5 Urine Color Urine Appearance Urine pH Ur Specific [place] Urine Protein Urine Glucose (UA) Urine Ketones Urine Blood Urine Nitrite Ur Leukocyte Esterase Urine RBC Urine WBC Ur Squamous Epith Cells Urine Bacteria Hyaline Casts Ethyl Alcohol < 10 07/02/23 07/02/23 03:00 06:31 MCV MCH MCHC RDW Plt Count MPV Immature Gran % (Auto) Neut % (Auto) Lymph % (Auto) [place] % (Auto) Eos % (Auto) Baso % (Auto) Lymph # (Auto) [place] # (Auto) Eos # (Auto) Baso # (Auto) Abs Immat Gran (auto) Absolute Neuts (auto) Absolute Nucleated RBC Nucleated RBC % (auto) Neutrophils % (Manual) Band Neutrophils % Lymphocytes % (Manual) Atypical Lymphs % (Man) Monocytes % (Manual) Eosinophils % (Manual) Abs Neuts (Manual) Lymphocytes # (Manual) Atyp Lymphs # (Manual) Monocytes # (Manual) Toxic Vacuolation Platelet Estimate Plt Morphology Comment RBC Morphology [place] Cells Anion Gap 20 Estim Creat Clear Calc 48.5 Estimated GFR 60 Random Glucose 92 Calcium 9.5 Total Bilirubin AST ALT Alkaline Phosphatase Total Protein Albumin Urine Color Yellow Urine Appearance Clear Urine pH 5.5 Ur Specific [place] <= 1.005 Urine Protein Negative Urine Glucose (UA) Negative Urine Ketones 15 Urine Blood Moderate (2+) H Urine Nitrite Negative Ur Leukocyte Esterase Trace H Urine RBC 6-10 H Urine WBC 0-5 Ur Squamous Epith Cells 0-2 Urine Bacteria None Seen Hyaline Casts 0-2 Ethyl Alcohol Assessment and Plan Time Spent With Patient Time: Total time managing care of this patient today ____ minutes. Quality VTE Prior VTE?: No VTE Risk Level:: Medical - moderate - high VTE Device Contraindication: Treatment Not Indicated VTE Drug Contraindication: N/A - Med Ordered
--- NOTE | 2023-07-02 14:48 | MHC.CM.PN ---
CM CALLED PTS PARTNER/HCP, MIKO [phone] MIKO CONFIRMS PT LIVES WITH HIM AND HAS VNA AND DIP LUBE OPERATOR THAT COME IN A FEW HOURS A DAY HE ASSISTS WITH ALL OTHER CARE HE REPORTS HER NURSES ASSIST WITH HER MEDS, THEY ARE FROM [facility] SHE HAS DIP LUBE OPERATOR THAT COME IN FROM V-CARE PT HAS A WHEEL CHAIR AND WALKER HCP ON FILE PCP BRITTANI NAME IMM DELIVERED DCP TBD: MIKO REPORTS HE NEEDS A BREAK HE WOULD PREFER SHE GO TO A [facility] HOWEVER IS AWARE SHE HAS BEEN TO [facility] AND THEY WILL NOT TAKE HER BACK DUE TO BEHAVIORS. HE REPORTS IF THERE IS NO ACCEPTING SNF, HE WILL TAKE HER HOME TOMORROW SHE WILL NEED BLS TRANSPORT TO HOME OR SNF
[2023-07-03 03:24] VITALS: BP 110/62; PULSE 85; RESP 16; TEMP 36; O2SAT 96
[2023-07-03 07:44] VITALS: BP 120/84; PULSE 95; RESP 20; TEMP 36.1; O2SAT 98
--- NOTE | 2023-07-03 08:48 | HO.PM.IMPN ---
Subjective Subjective Date of Service: 07/03/23 Interval History: alcohol abuse ,hyponatremia Review of Systems seems improved no new c/o. Physical Exam Vital Signs: Vital Signs: Last Vital Signs BMI result Body Mass Index 33.0 vitals from 07/02/23 reviewed . Appearance: Alert.? not in distress.? cvs: rrr, [id number] . res: clear to auscultation ,no rhonchii or wheezing abd: no rebound or guarding ,nt, bs present. ext pulses present , no cyanosis . neuro:nonfocal. Objective Data Active Medications Acetaminophen (Acetaminophen 325 Mg Tablet) 650 mg PO Q6H PRN PRN Reason: Pain, Mild (Pain Scale 1-3) Last Admin: 07/03/23 00:37 Dose: 650 mg Documented By: AIDA Al Hydroxide/Mg Hydroxide (Magnesium Hydrox/Alum Hydrox 30 Ml Oral.Susp) 30 ml PO Q4H PRN PRN Reason: Heartburn/Nausea Enoxaparin Sodium (Enoxaparin Sodium 40 Mg/0.4 Ml Syringe) 40 mg SUBCUT DAILY [facility] Last Admin: 07/02/23 14:22 Dose: Not Given Documented By: MICK Non-Admin Reason: Patient Refused Magnesium Hydroxide (Milk Of Magnesia 30 Ml Oral.Susp) 30 ml PO DAILY PRN PRN Reason: Constipation Melatonin (Melatonin 3 Mg Tablet) 3 mg PO BEDTIME PRN PRN Reason: Insomnia Last Admin: 07/02/23 20:05 Dose: 3 mg Documented By: AIDA Ondansetron HCl (Ondansetron Hcl 4 Mg/2 Ml Vial) 4 mg IVPUSH Q8H PRN PRN Reason: Nausea and Vomiting Last Admin: 07/02/23 16:04 Dose: 4 mg Documented By: MICK Sodium Chloride (0.9 % Sodium Chloride Flush 3 Ml Syringe) 3 ml IVFLUSH QSHIFT [facility] Last Admin: 07/02/23 20:05 Dose: 3 ml Documented By: AIDA Labs 07/01/23 16:46 07/02/23 08:13 Labs: Laboratory Results - last 24 hr 07/02/23 07/03/23 20:06 07:18 POC Glucose 134 H 122 H Assessment and Plan (1) Acute hyponatremia: Status: Acute (2) Alcohol use disorder: Status: Acute Plan 68/F with PMH etoh dependence, COPD, DM, chronic diastolic chf, chronic hyponatremia here with nausea/vomitting,weakness and sodium of 121 Acute on hronic hyponatremia d/t beer potomania fluid restriction, frequent sodium level, nephro consult ? need for salt tab or urea DM--SSI, Etoh dependence check ciwa no withdrdawal COPD, no exacerbation, inhalers PRN Chronic diastolic chf. compensated Abdominal with n/v, rule any acute process with non contrast ct dvt prophyalxis - lovenox awaiting for med rec full code refused to take her ,will add PT for am DISPO : awaiting Pt eval. Time Spent With Patient Time: Total time managing care of this patient today ____ minutes. Quality Stroke Does the patient have a stroke diagnosis?: No VTE Prior VTE?: No VTE Risk Level:: Medical - moderate - high VTE Device Contraindication: Treatment Not Indicated VTE Drug Contraindication: N/A - Med Ordered
--- NOTE | 2023-07-03 09:13 | MHC.CM.PN ---
Per MD, Patient is medically cleared for dc to home today, self care. Patient was active with [facility], who will be notified of today's dc and a RECREATION FACILITY MANAGER. Last IMM addressed yesterday.
--- NOTE | 2023-07-03 10:48 | MHC.CM.PN ---
Per 's request, KAMILA spoke with Patient's /HCP/Juanjo @ [phone]. Juanjo is aware that multiple SNF referrals have been made and the only SNF considering accepting Patient is [facility]. Juanjo is interested in [facility]; has ordered PT eval and KAMILA will follow. [facility] auth will be necessary.
[2023-07-03 11:17] VITALS: BP 113/65; PULSE 89; RESP 20; TEMP 36.2; O2SAT 98
--- NOTE | 2023-07-03 11:57 | HO.PM.IMPN ---
Subjective Subjective Date of Service: 07/04/23 Interval History: hyponatremia Review of Systems no new events Physical Exam Vital Signs: Vital Signs: Last Vital Signs Temp 97.1 F 07/03/23 11:17 Pulse 89 07/03/23 11:17 Resp 20 07/03/23 11:17 BP 113/65 07/03/23 11:17 Pulse Ox 98 07/03/23 11:17 O2 Del Method Room Air 07/03/23 11:17 BMI result Body Mass Index 33.0 Appearance: awake,Alert.? not in distress.? cvs: rrr, [id number] . res: clear to auscultation ,no rhonchii or wheezing abd: no rebound or guarding ,nt, bs present. ext pulses present , no cyanosis . neuro:nonfocal. psych:Normal mood and affect? Objective Data Active Medications Acetaminophen (Acetaminophen 325 Mg Tablet) 650 mg PO Q6H PRN PRN Reason: Pain, Mild (Pain Scale 1-3) Last Admin: 07/03/23 10:04 Dose: 650 mg Documented By: SHEMAR Al Hydroxide/Mg Hydroxide (Magnesium Hydrox/Alum Hydrox 30 Ml Oral.Susp) 30 ml PO Q4H PRN PRN Reason: Heartburn/Nausea Enoxaparin Sodium (Enoxaparin Sodium 40 Mg/0.4 Ml Syringe) 40 mg SUBCUT DAILY [facility] Last Admin: 07/03/23 08:59 Dose: 40 mg Documented By: JIGAR Magnesium Hydroxide (Milk Of Magnesia 30 Ml Oral.Susp) 30 ml PO DAILY PRN PRN Reason: Constipation Melatonin (Melatonin 3 Mg Tablet) 3 mg PO BEDTIME PRN PRN Reason: Insomnia Last Admin: 07/02/23 20:05 Dose: 3 mg Documented By: AIDA Ondansetron HCl (Ondansetron Hcl 4 Mg/2 Ml Vial) 4 mg IVPUSH Q8H PRN PRN Reason: Nausea and Vomiting Last Admin: 07/02/23 16:04 Dose: 4 mg Documented By: TRUPTI-RIVLA Sodium Chloride (0.9 % Sodium Chloride Flush 3 Ml Syringe) [facility] Last Admin: 07/03/23 08:59 Dose: 3 ml Documented By: JIGAR Labs 07/01/23 16:46 07/02/23 08:13 Labs: Laboratory Results - last 24 hr 07/02/23 07/03/23 07/03/23 20:06 07:18 11:14 POC Glucose 134 H 122 H 127 H Assessment and Plan (1) Acute hyponatremia: Status: Acute (2) Alcohol use disorder: Status: Acute Plan 68/F with PMH etoh dependence, COPD, DM, chronic diastolic chf, chronic hyponatremia here with nausea/vomitting,weakness and sodium of 121 Acute on hronic hyponatremia d/t beer potomania seems improved with fluid restriction and sodium tabd2 gmx1. nephro-recomended continue fluid restrictions 1500 ml ? hx of DM-less likely not on meds hba1c 4.8( last a1c was 5.1 (03/23/23 ) and 5.6 (07/25/22) respectively continue diet control. Etoh dependence check ciwa no withdrdawal COPD, no exacerbation, inhalers PRN Chronic diastolic chf. compensated Abdominal with n/v, rule any acute process with non contrast ct dvt prophyalxis - lovenox awaiting for med rec full code dispo and need for ongoing hospitlisation- refused to take her , PT -possible rehab Time Spent With Patient Time: Total time managing care of this patient today ____ minutes. Quality Stroke Does the patient have a stroke diagnosis?: No VTE Prior VTE?: No VTE Risk Level:: Medical - moderate - high VTE Device Contraindication: Treatment Not Indicated VTE Drug Contraindication: N/A - Med Ordered
--- NOTE | 2023-07-03 14:51 | MHC.CM.PN ---
PT is recommending STR into LTC; [facility] is following for female bed and private room.CM will follow.
[2023-07-03 14:55] VITALS: BP 130/78; PULSE 90; RESP 20; TEMP 36.2; O2SAT 93
[2023-07-03 18:51] VITALS: BP 118/60; PULSE 90; RESP 20; TEMP 36.6; O2SAT 100
[2023-07-03 23:34] VITALS: BP 118/58; PULSE 101; RESP 16; TEMP 36.2; O2SAT 95
[2023-07-04 03:44] VITALS: BP 138/64; PULSE 104; RESP 16; TEMP 36.1; O2SAT 93
[2023-07-04 07:16] VITALS: BP 126/65; PULSE 96; RESP 20; TEMP 36.3; O2SAT 95
--- NOTE | 2023-07-04 10:25 | HO.PM.IMPN ---
Subjective Subjective Date of Service: 07/04/23 Interval History: no new events Review of Systems denies any c/o Physical Exam Vital Signs: Vital Signs: Last Vital Signs Temp 97.3 F 07/04/23 07:16 Pulse 96 07/04/23 07:16 Resp 20 07/04/23 07:16 BP 126/65 07/04/23 07:16 Pulse Ox 95 07/04/23 07:16 O2 Del Method Room Air 07/04/23 07:16 BMI result Body Mass Index 33.0 Appearance: Alert.? not in distress.? cvs: rrr, [id number] . res: clear to auscultation ,no rhonchii or wheezing abd: no rebound or guarding ,nt, bs present. ext pulses present , no cyanosis . neuro:nonfocal. Objective Data Active Medications Acetaminophen (Acetaminophen 325 Mg Tablet) 650 mg PO Q6H PRN PRN Reason: Pain, Mild (Pain Scale 1-3) Last Admin: 07/04/23 05:31 Dose: 650 mg Documented By: AIDA Al Hydroxide/Mg Hydroxide (Magnesium Hydrox/Alum Hydrox 30 Ml Oral.Susp) 30 ml PO Q4H PRN PRN Reason: Heartburn/Nausea Albuterol/Ipratropium (Albuterol/Iprat 2.5/0.5mg 3 Ml Ampul.Neb) 3 ml INHALE RQ6H WHILE AWAKE PRN PRN Reason: Shortness of Breath/Wheezing Last Admin: 07/04/23 01:06 Dose: 3 ml Documented By: AIDA Enoxaparin Sodium (Enoxaparin Sodium 40 Mg/0.4 Ml Syringe) 40 mg SUBCUT DAILY [facility] Last Admin: 07/04/23 08:08 Dose: 40 mg Documented By: JIGAR Magnesium Hydroxide (Milk Of Magnesia 30 Ml Oral.Susp) 30 ml PO DAILY PRN PRN Reason: Constipation Last Admin: 07/03/23 21:54 Dose: 30 ml Documented By: AIDA Melatonin (Melatonin 3 Mg Tablet) 3 mg PO BEDTIME PRN PRN Reason: Insomnia Last Admin: 07/03/23 21:50 Dose: 3 mg Documented By: AIDA Ondansetron HCl (Ondansetron Hcl 4 Mg/2 Ml Vial) 4 mg IVPUSH Q8H PRN PRN Reason: Nausea and Vomiting Last Admin: 07/02/23 16:04 Dose: 4 mg Documented By: COLLETTERIVDELIA Sodium Chloride (0.9 % Sodium Chloride Flush 3 Ml Syringe) [facility] Last Admin: 07/04/23 08:08 Dose: 3 ml Documented By: RIOSCEL Labs 07/01/23 16:46 07/02/23 08:13 Labs: Laboratory Results - last 24 hr 07/03/23 07/03/23 07/03/23 11:14 15:16 15:55 POC Glucose 127 H 106 Estimat Average Glucose 91 Hemoglobin A1c % 4.8 Hold Green Top See Note Hold Yellow Top See Note 07/03/23 19:48 POC Glucose 104 Estimat Average Glucose Hemoglobin A1c % Hold Green Top Hold Yellow Top Assessment and Plan (1) Acute hyponatremia: Status: Acute (2) Alcohol use disorder: Status: Acute Plan 68/F with PMH etoh dependence, COPD, DM, chronic diastolic chf, chronic hyponatremia here with nausea/vomitting,weakness and sodium of 121 Acute on hronic hyponatremia d/t beer potomania seems improved with fluid restriction and sodium tabd2 gmx1. nephro-recomended continue fluid restrictions 1500 ml ? hx of DM-less likely not on meds hba1c 4.8( last a1c was 5.1 (03/23/23 ) and 5.6 (07/25/22) respectively continue diet control. Etoh dependence check ciwa no withdrdawal COPD, no exacerbation, inhalers PRN Chronic diastolic chf. compensated Abdominal with n/v, rule any acute process with non contrast ct dvt prophyalxis - lovenox awaiting for med rec full code dispo and need for ongoing hospitlisation- refused to take her , PT -possible rehab Time Spent With Patient Time: Total time managing care of this patient today ____ minutes. Quality Stroke Does the patient have a stroke diagnosis?: No VTE Prior VTE?: No VTE Risk Level:: Medical - moderate - high VTE Device Contraindication: Treatment Not Indicated VTE Drug Contraindication: N/A - Med Ordered
[2023-07-04 11:20] VITALS: BP 141/65; PULSE 87; RESP 20; TEMP 37.6; O2SAT 96
[2023-07-04 14:55] VITALS: BP 135/65; PULSE 95; RESP 20; TEMP 36.7; O2SAT 95
[2023-07-04 18:48] VITALS: BP 138/67; PULSE 91; RESP 20; TEMP 36.7; O2SAT 97
[2023-07-05] VITALS (8 sets, daily range): BP systolic 131–140; BP diastolic 68–83; PULSE 80–103; RESP 16–20; TEMP 36–37.1; O2SAT 94–98
--- NOTE | 2023-07-05 14:43 | HO.PM.IMPN ---
Subjective Subjective Date of Service: 07/05/23 Interval History: no new events Review of Systems denies any c/o Physical Exam Vital Signs: Vital Signs: Last Vital Signs Temp 98.8 F 07/05/23 11:06 Pulse 98 07/05/23 11:06 Resp 18 07/05/23 11:06 BP 133/78 07/05/23 11:06 Pulse Ox 97 07/05/23 11:06 O2 Del Method Room Air 07/05/23 11:06 BMI result Body Mass Index 33.0 Appearance: Alert.? not in distress.? cvs: rrr, [id number] . res: clear to auscultation ,no rhonchii or wheezing abd: no rebound or guarding ,nt, bs present. ext pulses present , no cyanosis . neuro:nonfocal. Objective Data Active Medications Acetaminophen (Acetaminophen 325 Mg Tablet) 650 mg PO Q6H PRN PRN Reason: Pain, Mild (Pain Scale 1-3) Last Admin: 07/05/23 14:30 Dose: 650 mg Documented By: DILLON Al Hydroxide/Mg Hydroxide (Magnesium Hydrox/Alum Hydrox 30 Ml Oral.Susp) 30 ml PO Q4H PRN PRN Reason: Heartburn/Nausea Albuterol/Ipratropium (Albuterol/Iprat 2.5/0.5mg 3 Ml Ampul.Neb) 3 ml INHALE RQ6H WHILE AWAKE PRN PRN Reason: Shortness of Breath/Wheezing Last Admin: 07/05/23 06:38 Dose: 3 ml Documented By: KENRICK Enoxaparin Sodium (Enoxaparin Sodium 40 Mg/0.4 Ml Syringe) 40 mg SUBCUT DAILY YUMIKO Last Admin: 07/05/23 09:40 Dose: 40 mg Documented By: DILLON Magnesium Hydroxide (Milk Of Magnesia 30 Ml Oral.Susp) 30 ml PO DAILY PRN PRN Reason: Constipation Last Admin: 07/03/23 21:54 Dose: 30 ml Documented By: AIDA Melatonin (Melatonin 3 Mg Tablet) 3 mg PO BEDTIME PRN PRN Reason: Insomnia Last Admin: 07/04/23 20:24 Dose: 3 mg Documented By: QUOC Ondansetron HCl (Ondansetron Hcl 4 Mg/2 Ml Vial) 4 mg IVPUSH Q8H PRN PRN Reason: Nausea and Vomiting Last Admin: 07/02/23 16:04 Dose: 4 mg Documented By: MICK Sodium Chloride (0.9 % Sodium Chloride Flush 3 Ml Syringe) 3 ml IVFLUSH QSHIFT [facility] Last Admin: 07/05/23 09:42 Dose: Not Given Documented By: DILLON Non-Admin Reason: No Access Labs 07/01/23 16:46 07/02/23 08:13 Labs: Laboratory Results - last 24 hr 07/04/23 07/04/23 07/04/23 07:09 11:03 16:03 POC Glucose 134 H 113 113 07/04/23 07/05/23 07/05/23 19:48 07:32 11:09 POC Glucose 104 106 129 H Assessment and Plan (1) Acute hyponatremia: Status: Acute (2) Alcohol use disorder: Status: Acute Plan 68/F with PMH etoh dependence, COPD, DM, chronic diastolic chf, chronic hyponatremia here with nausea/vomitting,weakness and sodium of 121 Acute on hronic hyponatremia d/t beer potomania seems improved with fluid restriction and sodium tabd2 gmx1. nephro-recomended continue fluid restrictions 1500 ml ? hx of DM-less likely not on meds hba1c 4.8( last a1c was 5.1 (03/23/23 ) and 5.6 (07/25/22) respectively continue diet control. Etoh dependence check ciwa no withdrdawal COPD, no exacerbation, inhalers PRN Chronic diastolic chf. compensated Abdominal with n/v, rule any acute process with non contrast ct dvt prophyalxis - lovenox awaiting for med rec full code dispo and need for ongoing hospitlisation- refused to take her , PT -possible rehab Time Spent With Patient Time: Total time managing care of this patient today ____ minutes. Quality Stroke Does the patient have a stroke diagnosis?: No VTE Prior VTE?: No VTE Risk Level:: Medical - moderate - high VTE Device Contraindication: Treatment Not Indicated VTE Drug Contraindication: N/A - Med Ordered
[2023-07-06] VITALS (10 sets, daily range): BP systolic 123–167; BP diastolic 63–86; PULSE 83–107; RESP 18–22; TEMP 36.1–36.7; O2SAT 92–97
--- NOTE | 2023-07-06 15:57 | HO.PM.IMPN ---
Subjective Subjective Date of Service: 07/06/23 Interval History: history obtained via transcription, patient denies nausea, no vomiting, no abdominal pain, no diarrhea denies lightheadedness or dizziness no acute issues overnight as per RN patient unable to stand up and ambulate due to bilateral hip pain patient cries with standing and with attempt to ambulating. Review of Systems all other systems reviewed and negative Physical Exam Vital Signs: Vital Signs: Last Vital Signs Temp 96.9 F 07/06/23 15:19 Pulse 83 07/06/23 15:19 Resp 22 H 07/06/23 15:19 BP 159/74 H 07/06/23 15:19 Pulse Ox 95 07/06/23 15:19 O2 Del Method Room Air 07/06/23 15:19 O2 Flow Rate 97 07/06/23 00:00 BMI result Body Mass Index 33.0 Const: Other: General alert oriented x3,no acute distress.? Neck? supple no JVD. CVS? regular rate rhythm, Respiratory lungs clear to auscultation, no respiratory distress, no wheeze, no rhonchi. Gastrointestinal abdomen soft, non tender, bowel sounds audible, no guarding , no rigidity. Extremities no edema. bilateral groin discomfort with standing, with internal rotation. Neuro nonfocal , speech clear. Skin no rash Psych appropriate affect Objective Data Active Medications Acetaminophen (Acetaminophen 325 Mg Tablet) 650 mg PO Q6H PRN PRN Reason: Pain, Mild (Pain Scale 1-3) Last Admin: 07/06/23 15:34 Dose: 650 mg Documented By: DILLON Al Hydroxide/Mg Hydroxide (Magnesium Hydrox/Alum Hydrox 30 Ml Oral.Susp) 30 ml PO Q4H PRN PRN Reason: Heartburn/Nausea Albuterol/Ipratropium (Albuterol/Iprat 2.5/0.5mg 3 Ml Ampul.Neb) 3 ml INHALE RQ6H WHILE AWAKE PRN PRN Reason: Shortness of Breath/Wheezing Last Admin: 07/06/23 06:17 Dose: 3 ml Documented By: BRYAN Enoxaparin Sodium (Enoxaparin Sodium 40 Mg/0.4 Ml Syringe) 40 mg SUBCUT DAILY YUMIKO Last Admin: 07/06/23 09:11 Dose: 40 mg Documented By: DILLON Magnesium Hydroxide (Milk Of Magnesia 30 Ml Oral.Susp) 30 ml PO DAILY PRN PRN Reason: Constipation Last Admin: 07/03/23 21:54 Dose: 30 ml Documented By: AIDA Melatonin (Melatonin 3 Mg Tablet) 3 mg PO BEDTIME PRN PRN Reason: Insomnia Last Admin: 07/05/23 19:47 Dose: 3 mg Documented By: ALEJA Ondansetron HCl (Ondansetron Hcl 4 Mg/2 Ml Vial) 4 mg IVPUSH Q8H PRN PRN Reason: Nausea and Vomiting Last Admin: 07/02/23 16:04 Dose: 4 mg Documented By: TRUPTI-RIVDELIA Sodium Chloride (0.9 % Sodium Chloride Flush 3 Ml Syringe) 3 [facility] Last Admin: 07/06/23 15:36 Dose: Not Given Documented By: DILLON Non-Admin Reason: No Access Labs 07/01/23 16:46 07/02/23 08:13 Labs: Laboratory Results - last 24 hr 07/05/23 07/05/23 07/06/23 16:45 19:51 07:10 POC Glucose 107 133 H 129 H 07/06/23 07/06/23 11:04 15:33 POC Glucose 145 H 114 Assessment and Plan (1) Acute hyponatremia: Status: Acute (2) Alcohol use disorder: Status: Acute Plan 68/F with PMH etoh dependence, COPD, DM, chronic diastolic chf, chronic hyponatremia here with nausea/vomitting,weakness and sodium of 121 Acute on hronic hyponatremia d/t beer potomania sodium improved with fluid restriction and sodium tab 2 gmx1. nephro-recomended continue fluid restrictions 1500 ml bilateral hip pain with standing and ambulation CT abdomen showed severe changes of osteoarthritis bilateral hips nausea vomiting and abdominal pain resolved CT abdomen showed no acute abnormality, UA unremarkable. ? hx of DM-less likely hba1c 4.8( last a1c was 5.1 (03/23/23 ) and 5.6 (07/25/22) respectively, continue diet control. Etoh dependence no withdrdawal symptoms will consult care team COPD, no exacerbation, inhalers PRN Chronic diastolic chf. compensated dvt prophyalxis - lovenox full code dispo and need for ongoing hospitalization- refused to take her , PT -rec rehab, waiting for Ortho eval due to bilateral hip pain. Time Spent With Patient Time: Total time managing care of this patient today ____ minutes. Quality Stroke Does the patient have a stroke diagnosis?: No VTE Prior VTE?: No VTE Risk Level:: Medical - moderate - high VTE Device Contraindication: Treatment Not Indicated VTE Drug Contraindication: N/A - Med Ordered
[2023-07-07 03:07] VITALS: BP 146/70; PULSE 90; RESP 20; TEMP 36.1; O2SAT 92
[2023-07-07 07:08] VITALS: BP 163/81; PULSE 85; RESP 17; TEMP 36.1; O2SAT 96
--- NOTE | 2023-07-07 10:31 | MHC.CM.PN ---
EMR REVIEWED AND PER MD ROUNDS PT IS MEDICALLY CLEARED FOR DC. PLAN TO TRANSFER TO [facility] VIA S TODAY AT 2:30PM FOR STR. MD AND RN AWARE. LEFT MESSAGE FOR SPOUSE/HCP TO INFORM OF TRANSFER AND DELIVER IMM.
[2023-07-07 11:07] VITALS: BP 141/77; PULSE 89; RESP 17; TEMP 36.2; O2SAT 97
--- NOTE | 2023-07-07 11:33 | PM.DS ---
DS: Providers Provider Date of Service: 07/07/23 Date of admission: 07/01/23 19:20 Primary care physician: Ryder Monique MD Consults: 07/01/23 19:20 Consult to Nephrology Routine Consulting Provider: Colton Isaacs Reason for consultation: Hyponatremia 121, chronic Has provider been notified: No 07/06/23 10:52 Consult to Orthopedics Routine Consulting Provider[place] [facility] [place] [facility] Reason for consultation: b/l hip svere arthritis cannot ambulate Has provider been notified: No DS: Diagnosis Discharge Diagnosis (1) Acute hyponatremia: Status: Acute (2) Alcohol use disorder: Status: Acute DS: Summary Hospital Course Hospital Course: 68-year-old female with past medical history of bipolar 1 disorder, chronic hyponatremia, CHF, COPD, CAD, diabetes, dementia, HTN, schizophrenia, alcohol and substance use desorder presenting with nausea and vomitting for about 3 days and had lab done and noted to have sodium of 120, and called to come to ED where repeat lab is 121. Claims she has drank since wednesday, although she told ED provider she had her usual 5 beers yesterday. Not confused and otherwise has no complaint other than some abdominal discomfort. hospital course: admitted to [facility] with a diagnosis of hyponatremia with a sodium of 121 likely related to beer potomania patient treated with fluid restriction and sodium chloride tablet, sodium improved and remained stable around 130 patient has been strongly advised to abstain from alcohol. CT abdomen showed mild distention of urinary bladder bladder scan showed no retention patient has been urinating and has normal renal function Alcohol use Disorder patient noted to have no acute withdrawal symptoms, was strongly advised to abstain from alcohol. Difficulty in ambulation with bilateral hip pain, CT abdomen imaging showed bilateral hip severe osteoarthritis evaluated by orthopedic surgeon they recommend outpatient follow-up for hip replacement recommend to take Tylenol as needed, and weight control, seen by Physical therapy they recommend short-term rehab patient is being discharged to rehab facility for less than 30 days history of bipolar disorder / schizophrenia recommend to continue home medications history of COPD no acute exacerbation noted continue home medications. history of chronic diastolics congestive heart failure no acute decompensation noted continue home medications history of diabetes noted to have a hemoglobin A1c of 4.8 does not require treatment. Time Spent with Patient Time attestation: Total time managing care of this patient today ____ minutes. Discharge coordination time: Greater than 30 minutes Quality: Safe Use of Opioids Does Pt have an Active Cancer Diagnosis on the Problem List?: No Quality: Stroke Does the patient have a stroke diagnosis?: No Physical Exam Vital Signs: Vital Signs: Last Vital Signs Temp 97.1 F 07/07/23 11:07 Pulse 89 07/07/23 11:07 Resp 17 07/07/23 11:07 BP 141/77 H 07/07/23 11:07 Pulse Ox 97 07/07/23 11:07 O2 Del Method Room Air 07/07/23 11:07 O2 Flow Rate 97 07/06/23 00:00 BMI result Body Mass Index 33.0 Const: Other: General alert oriented x3,no acute distress.? Neck? supple no JVD. CVS? regular rate rhythm, Respiratory lungs clear to auscultation, no respiratory distress, no wheeze, no rhonchi. Gastrointestinal abdomen soft, non tender, bowel sounds audible, no guarding , no rigidity. Extremities no edema. bilateral groin discomfort with standing, with internal rotation. Neuro nonfocal , speech clear. Skin no rash Psych appropriate affect DS: Data Data Completed and Pending Completed studies during hospitalization [Text1]: Procedures Detoxification Services for Substance Abuse Treatment (03/03/23) Insertion of Infusion Device into Superior Vena Cava, Percutaneous Approach (05/01/21) Labs on day of discharge: Laboratory Results - last 24 hr 07/06/23 07/06/23 07/07/23 15:33 20:06 07:41 POC Glucose 114 119 H 114 Discharge Plan Discharge Anticipated Discharge Date/Time: 07/07/23 11:04 Patient Disposition: Home, Self-Care Discharge Diagnosis: Hyponatremia chronic, alcohol use Referrals: [facility] [Outside] - 1 Day (short term rehab) Name,MD Ryder [Primary Care Provider] - 1 Week Discharge Medications: Continued multivitamin [Daily-Cony] Tablet 1 tab PO DAILY 30 Days Qty: 30 0RF acetaminophen 650 mg tablet extended release 1 tab PO BID PRN (Reason: pain) 30 Days Qty: 60 0RF baclofen 20 mg Tablet 20 mg PO DAILY PRN (Reason: Back Pain) 30 Days Qty: 30 0RF trazodone 50 mg tablet 1 tab PO BEDTIME PRN (Reason: insomnia) omeprazole 40 mg capsule,delayed release(DR/EC) 1 cap PO DAILY@0630 montelukast 10 mg tablet 1 tab PO BEDTIME pravastatin 20 mg tablet 1 tab PO BEDTIME metoprolol succinate 25 mg tablet extended release 24 hr 1 tab PO DAILY albuterol sulfate [Ventolin HFA] 90 mcg/actuation HFA aerosol inhaler 2 puff INHALATION Q4-6H PRN (Reason: Shortness Of Breath Or Wheezing) thiamine HCl (vitamin B1) 100 mg tablet 1 tab PO DAILY aspirin 81 mg tablet,delayed release (DR/EC) 1 tab PO BEDTIME folic acid 1 mg tablet 1 mg PO DAILY fluticasone propion-salmeterol [Advair Diskus] 250-50 mcg/dose blister with device 1 ea INHALATION BID sennosides [senna] 8.6 mg tablet 8.6 mg PO BID PRN (Reason: constipation) ondansetron HCl 4 mg tablet 4 mg PO BID PRN (Reason: nausea) ferrous sulfate [FeroSul] 325 mg (65 mg iron) tablet 325 mg PO DAILY albuterol sulfate 2.5 mg /3 mL (0.083 %) solution for nebulization 2.5 mg inhalation Q4-6H PRN (Reason: Wheezing) famotidine 20 mg tablet 20 mg PO BID acamprosate 333 mg tablet,delayed release (DR/EC) 666 mg PO TID Incruse Ellipta 62.5 mcg/actuation blister with device 1 inh inhalation DAILY Changed quetiapine 50 mg tablet 50 mg PO BID Qty: 30 0RF Discharge Orders: Discharge Order (Routine); Ordered 07/07/23 Ordered By: Malia Saravia Diet: Advance to usual diet Activity on Discharge: As tolerated Stand Alone Forms: Patient Portal Discharge page Care Plan Goals: Hyponatremia chronic: Possibly related to beer potomania. Seems to be improved with fluid restriction. Patient was strongly advised to abstain from alcohol . Alcohol use: Not in withdrawal, seems at baseline. Patient was strongly advised to abstain from alcohol. bilateral hip osteoarthritis seen by Ortho recommend outpatient follow-up for hip surgery discharged to rehab for less than 30 days Health Concerns: bipolar disorder/ schizophrenia chronic hyponatremia chronic diastolic CHF stable history of diabetes, hemoglobin A1c less than 5 does not need treatment Plan of Treatment: outpatient follow-up with primary care physician Assessment: As above.
== END 2023-07-07 17:15 | disposition skilled nursing facility (03) | DRG 641 ==
LOC: HO.ED 18:10 → HO.EDOVER 19:23 → HO.IMC 07-02 08:38
PROVIDERS: Admitting Provider Internal Medicine; Emergency Provider Emergency Medicine; PCP Internal Medicine Geriatric Medicine; Visit Provider Hospitalist
DX: E87.1 Hypo-osmolality and hyponatremia (principal); I50.32 Chronic diastolic (congestive) heart failure; F17.210 Nicotine dependence, cigarettes, uncomplicated; F31.9 Bipolar disorder, unspecified; F10.20 Alcohol dependence, uncomplicated; M16.0 Bilateral primary osteoarthritis of hip; J44.9 Chronic obstructive pulmonary disease, unspecified; Z71.6 Tobacco abuse counseling; Z79.51 Long term (current) use of inhaled steroids; Z79.82 Long term (current) use of aspirin; Z79.899 Other long term (current) drug therapy
CPT/HCPCS: 36415; 74176; 80048; 80053; 80307; 81001; 82947; 83036; 84295; 85007; 85025; 85027; 94640; 97162; 97530; 99285; J1650; J2405

== ENCOUNTER → 2023-07-01 19:20 | Outpatient (BNV) | payer OTHER, SELFPAY | PROVIDERS: Admitting Provider Internal Medicine; Emergency Provider Emergency Medicine; PCP Internal Medicine Geriatric Medicine; Visit Provider Internal Medicine | DX: E87.1 Hypo-osmolality and hyponatremia (principal); F10.90 Alcohol use, unspecified, uncomplicated | CPT/HCPCS: 99223; 99231; 99232; 99239; 99499 ==

== ENCOUNTER 2023-08-24 02:42 | Inpatient (IN) | payer OTHER, SELFPAY ==
--- NOTE | 2023-08-24 | ECG_ITS ---
Test Reason : ams Blood Pressure : / mmHG Vent. Rate : 062 BPM Atrial Rate : 062 BPM P-R Int : 150 ms QRS Dur : 094 ms QT Int : 444 ms P-R-T Axes : 062 -15 043 degrees QTc Int : 450 ms Sinus rhythm with Premature atrial complexes T wave abnormality, consider anterior ischemia RSR' or QR pattern in V1 suggests right ventricular conduction delay Abnormal ECG When compared with ECG of 22-MAR-2023 10:33, Premature atrial complexes are now Present Referred By: Generic ED Physician Electronically Signed By:ALVARO SEVERINO MD
[2023-08-24 02:58] VITALS: BP 154/84; BP 165/66; PULSE 75; RESP 25; O2SAT 94; BMI 29.7
--- NOTE | 2023-08-24 03:14 | MHC.EDTECH ---
Patient came in by EMS,changed into hospital attire and placed on the cardiac monitior, Vitals done and EKG taken per order.
[2023-08-24 04:07] LABS: Hematocrit 39.9 % (37.0-47.0); Hemoglobin 13.4 g/dl (12.0-16.0); Mean Corpuscular HGB Conc 33.6 g/dl (31.0-35.0); Mean Corpuscular Hemoglobin 31.5 pg (27.0-33.0); Mean Corpuscular Volume 93.7 fL (80.0-98.0); Platelet Count 247 X10*3/uL (160-400); Red Blood Count 4.26 X10*6/uL (4.20-5.50); Red Cell Distribution Width 13.3 % (11.0-16.0); White Blood Count 6.4 X10*3/uL (4.8-10.8)
[2023-08-24 04:08] VITALS: BP 186/67; PULSE 64; RESP 16; TEMP 36.8; O2SAT 93
--- NOTE | 2023-08-24 04:10 | MHC.EDTECH ---
Labs obtained and sent to lab. Hourly rounds and vitals completed.
[2023-08-24 04:16] LABS: Lactic Acid 1.2 mmol/L (0.5-2.0)
[2023-08-24 04:22] LABS: Alanine Aminotransferase 7 U/L (0-31); Albumin Level 4.2 g/dL (3.5-5.0); Alkaline Phosphatase 118 U/L (39-117); Anion Gap 18 (12-20); Aspartate Amino Transferase 17 U/L (5-31); Bilirubin Total 0.3 mg/dL (0.0-1.0); Blood Urea Nitrogen 22 mg/dL (9-16); Carbon Dioxide 19 mmol/L (22-29); Chloride 105 mmol/L (96-108); Creatinine Clr Calc Pharmacy 34.9; Estimated Glomerular Filt Rate 37; Ethanol < 10 mg/dL; Glucose Random 133 mg/dL (60-115); Potassium 4.4 mmol/L (3.3-5.1); Sodium 138 mmol/L (135-145); Total Protein 8.4 g/dL (6.5-8.0)
--- NOTE | 2023-08-24 04:57 | ED_ITS ---
HPI - Altered Mental Status General Chief Complaint: Altered Mental Status Stated Complaint: Ams Time Seen by Provider: 08/24/23 04:55 Source: patient, family and EMS Mode of arrival: EMS Limitations: altered mental status History of Present Illness HPI narrative: Patient is 68 years old with history of polysubstance abuse fentanyl marijuana and alcohol with mood disorders, COPD, frequent aggression behavior EMS was called for increased aggression towards her off prior to arrival patient denies any complaints requesting to go back to her but patient obviously is intoxicated. Patient with our hospital for similar presentation multiple times patient afebrile on arrival very anxious denies any urinary complaints does have history of frequent UTI with ESBL infection Related Data Home Medications Medication Instructions Recorded Confirmed albuterol sulfate 90 mcg/actuation 2 puff inhalation Q4-6H PRN 11/26/22 07/01/23 aerosol inhaler (Ventolin HFA) Shortness Of Breath Or Wheezing aspirin 81 mg tablet,delayed 1 tab PO BEDTIME 11/26/22 07/01/23 release folic acid 1 mg tablet 1 mg PO DAILY 11/26/22 07/01/23 metoprolol succinate 25 mg 1 tab PO DAILY 11/26/22 07/01/23 tablet,extended release 24 hr montelukast 10 mg tablet 1 tab PO BEDTIME 11/26/22 07/01/23 omeprazole 40 mg capsule,delayed 1 cap PO DAILY@0630 11/26/22 07/01/23 release pravastatin 20 mg tablet 1 tab PO BEDTIME 11/26/22 07/01/23 thiamine HCl (vitamin B1) 100 mg 1 tab PO DAILY 11/26/22 07/01/23 tablet trazodone 50 mg tablet 1 tab PO BEDTIME PRN insomnia 11/26/22 07/01/23 ferrous sulfate 325 mg (65 mg 325 mg PO DAILY 01/31/23 07/01/23 iron) tablet (FeroSul) fluticasone 250 mcg-salmeterol 50 1 ea inhalation BID 01/31/23 07/01/23 mcg/dose blistr powdr for inhalation (Advair Diskus) ondansetron HCl 4 mg tablet 4 mg PO BID PRN nausea 01/31/23 07/01/23 sennosides 8.6 mg tablet (senna) 8.6 mg PO BID PRN constipation 01/31/23 07/01/23 acamprosate 333 mg tablet,delayed 666 mg PO TID 05/25/23 07/01/23 release albuterol sulfate 2.5 mg/3 mL 2.5 mg inhalation Q4-6H PRN 05/25/23 07/01/23 (0.083 %) solution for nebulization Wheezing famotidine 20 mg tablet 20 mg PO BID 05/25/23 07/01/23 umeclidinium 62.5 mcg/actuation 1 inh inhalation DAILY 05/25/23 07/01/23 blister powder for inhalation (Incruse Ellipta) Previous Rx's Medication Instructions Recorded acetaminophen 650 mg 1 tab PO BID PRN pain 30 days #60 04/29/22 tablet,extended release tabs baclofen 20 mg tablet 20 mg PO DAILY PRN Back Pain 30 04/29/22 days #30 tabs multivitamin (Daily-Cony tablet) 1 tab PO DAILY 30 days #30 tabs 04/29/22 quetiapine 50 mg tablet 50 mg PO BID #30 tabs 07/07/23 Allergies Allergy/AdvReac Type Severity Reaction Status Date / Time fluticasone Allergy Unknown Verified 08/24/23 02:57 [From Advair Diskus] salmeterol Allergy Unknown Verified 08/24/23 02:57 [From Advair Diskus] paroxetine [From Paxil] AdvReac Intermediate Nausea and Verified 08/24/23 02:57 Vomiting Review of Systems 2 Review of Systems: Yes Unobtainable due to mental status PMFSH Past Medical History Medical History COPD (chronic obstructive pulmonary disease) Effusion of shoulder joint, left Mass of joint of left shoulder Cannabis use disorder, moderate, dependence Dementia Korsakoff disease Chronic hyponatremia Schizophrenia Congestive heart failure Bipolar 1 disorder Osteoarthritis COPD (chronic obstructive pulmonary disease) Hypertension Diabetes Coronary artery disease Sleep apnea Alcohol use disorder Surgical History Hx of appendectomy Family History Family History Sister Breast cancer, Onset Age: 40 Sister Breast cancer, Onset Age: 50 Social History Household Members: Spouse Household Members Other:: 2 Housing: Apartment Do you presently have visiting nurse or other home services: Yes (-[employer]) Alcohol intake: never Patient Tobacco Use Status: Current everyday Tobacco user Tobacco use type: Cigarette Cigarette Packs Per Day: 0.5 Cigarettes Per Day: 10.0 Years Smoked: 53 Smoked in Last 30 Days: No e-Cigarette/Vaping Use: Never Used Second Hand Smoke Exposure: Yes Use of substances other than those prescribed or required for medical reasons: No Substance Use Type: Marijuana Advance Directives: Yes Advance Directives on File: Yes Advance Directives Date on File: 10/10/20 service: No Current occupational status: unemployed, disabled and other Sexual orientation: Straight/Heterosexual Physical Exam ED Vital Signs: Vital Signs - 24 hr 08/24/23 02:58 08/24/23 04:08 08/24/23 05:41 Temperature 98.2 F 98.0 F Pulse Rate 75 64 67 Respiratory Rate 25 H 16 16 Blood Pressure 165/66 H 186/67 H 181/58 H Pulse Oximetry 94 93 96 Oxygen Delivery Method Room Air Room Air Room Air BMI result Body Mass Index 29.7 Appearance: Alert. Oriented X3. Confuse , anxious ENT: Pharynx normal. Oral Mucosa moist Neck: Normal inspection. Neck supple. CVS: Normal heart rate and rhythm. Pulses normal. Respiratory: No respiratory distress. Equal air entry bilateral, no wheezing/rales/rhonchi Abdomen: Soft and nontender. Bowel sounds are present, no mass palpable, no CVA tenderness Skin: Skin warm and dry. Normal skin color. Normal skin turgor. Extremities: No lower extremity edema. No calf tenderness psych: Anxious denies any SI or HI Neuro: Oriented X 3. No motor deficit. No sensory deficit.No cerebellar signs , cranial nerves II-XII intact Medical Decision Making Medical Decision Making MDM Narrative: Patient with increased agitation likely she has use narcotics with patient denying at this time UDS shows positive for marijuana at this time patient cooperative does have UTI and SAGAR in the past patient UA positive for ESBL will start her on ertapenem and admit for metabolic encephalopathy/SAGAR patient received IV fluids Differential Diagnosis Differential Diagnoses: The differential diagnosis associated with the presentation includes Anxiety/polysubstance abuse/psychotic disorder/UTI/metabolic encephalopathy Admission/Observation Consideration of admission/observation: Escalation of care including admission/observation considered Consult Healthcare Provider Management of the patient was discussed with: Hospitalist Lab Data [facility] Lab Attestation statement: I reviewed the patient's lab results. 08/24/23 04:01 08/24/23 04:01 Labs: Lab Results 08/24/23 08/24/23 Range/Units 04:01 05:13 WBC 6.4 (4.8-10.8) X10*3/uL RBC 4.26 (4.20-5.50) X10*6/uL Hgb 13.4 (12.0-16.0) g/dl Hct 39.9 D (37.0-47.0) % MCV 93.7 (80.0-98.0) fL MCH 31.5 (27.0-33.0) pg MCHC 33.6 (31.0-35.0) g/dl RDW 13.3 (11.0-16.0) % Plt Count 247 (160-400) X10*3/uL MPV 9.0 L (9.4-12.3) fL Absolute Nucleated RBC 0.000 (0.0-0.012) X10*3/uL Nucleated RBC % (auto) 0.0 (0.0-0.2) /100WBC Sodium 138 (135-145) mmol/L Potassium 4.4 (3.3-5.1) mmol/L Chloride 105 (96-108) mmol/L Carbon Dioxide 19 L (22-29) mmol/L Anion Gap 18 (12-20) BUN 22 H (9-16) mg/dL Creatinine 1.41 H (0.5-1.4) mg/dL Estim Creat Clear Calc 34.9 Estimated GFR 37 Random Glucose 133 H (60-115) mg/dL Lactic Acid 1.2 (0.5-2.0) mmol/L Calcium 10.0 (8.4-10.2) mg/dL Total Bilirubin 0.3 (0.0-1.0) mg/dL AST 17 (5-31) U/L ALT 7 (0-31) U/L Alkaline Phosphatase 118 H (39-117) U/L Total Protein 8.4 H (6.5-8.0) g/dL Albumin 4.2 (3.5-5.0) g/dL Urine Color Yellow Urine Appearance Clear Urine pH 5.5 (5.0-9.0) Ur Specific Ponder 1.010 (1.005-1.025) Urine Protein Trace (Neg-Trace) mg/dL Urine Glucose (UA) Negative (Negative) mg/dL Urine Ketones Negative (Negative) mg/dL Urine Blood Moderate (2+) H (Negative) Urine Nitrite Negative (Negative) Ur Leukocyte Esterase Moderate (2+) H (Negative) Urine RBC 6-10 H (0-2) /HPF Urine WBC 21-50 H (0-5) /HPF Ur Squamous Epith Cells 0-2 (0-2) /HPF Urine Bacteria None Seen (None Seen) Hyaline Casts 3-5 (0-2) /LPF Urine Opiates Screen Not Detected (Not Detect) Urine Fentanyl Screen Not Detected (Not Detect) Ur Barbiturates Screen Not Detected (Not Detect) Ur Phencyclidine Scrn Not Detected (Not Detect) Ur Amphetamines Screen Not Detected (Not Detect) U Benzodiazepines Scrn Not Detected (Not Detect) Urine Cocaine Screen Not Detected (Not Detect) U Marijuana (THC) Screen POSITIVE H (Not Detect) Ethyl Alcohol < 10 mg/dL Independent Interpretation I performed an independent interpretation of an: EKG Interpretation: Normal sinus rhythm heart rate 62 beats per minute nonspecific ST T wave changes no acute ischemia External Record Review External record reviewed: Inpatient record Discharge Plan Discharge Clinical Impression: Acute metabolic encephalopathy, Acute UTI, SAGAR (acute kidney injury) Patient Disposition: Admitted As Inpatient
[2023-08-24 05:19] LABS: Appearance Urine Clear; Color Urine Yellow; Glucose Urine UA Negative (Negative); Leukocyte Esterase Urine Moderate (2+) (Negative); Nitrite Urine Negative (Negative); PH 5.5 (5.0-9.0); UMIC TRIGGER UACC YES; Urine Blood Moderate (2+) (Negative); Urine Ketones Negative (Negative); Urine Protein Trace mg/dL (Neg-Trace)
[2023-08-24 05:21] LABS: Bacteria Urine None Seen (None Seen); Squamous Epithelial Cell Urine 0-2 /HPF (0-2); UACC Culture Trigger YES; WBC Urine 21-50 /HPF (0-5)
[2023-08-24 05:27] LABS: Amphetamine Screen Urine Not Detected (Not Detect); Barbiturates, Urine Not Detected (Not Detect); Benzodiazepines Screen Urine Not Detected (Not Detect); Cannabinoid Screen Urine POSITIVE (Not Detect); Cocaine Screen Urine Not Detected (Not Detect); Fentanyl, urine Not Detected (Not Detect); Opiate Screen Urine Not Detected (Not Detect); Phencyclidine Screen Urine Not Detected (Not Detect)
[2023-08-24 05:41] VITALS: BP 181/58; PULSE 67; RESP 16; TEMP 36.7; O2SAT 96
--- NOTE | 2023-08-24 05:43 | MHC.EDTECH ---
Hourly rounds and vitals completed.
--- NOTE | 2023-08-24 06:54 | PC.NURSE ---
Per EMS pt's spouse called and reported that patient was confused, aggressive and combative. when patient arrived she was lethargic but arousable, yelling out. IV placed #20 R-forearm, labs drawn and sent. Pt requesting to go home,. MD at bedside and saw patient. Patient denies hitting her and saying she feels fine. Pt alert to person and place, assisted to the commode. This RN called to discuss plans for discharge. Corrie states that he can no longer take care of patient and he will not come to pick him up. made aware.
[2023-08-24] MEDS: 0.9 % Sodium Chloride 1,000 ML 999 ML IV (07:45)
--- NOTE | 2023-08-24 08:42 | PC.NURSE ---
Arrived from main ed, changed and repositioned. Pharmacy called to deliver abt
--- NOTE | 2023-08-24 09:37 | PHA.MEDREC ---
Pharmacy Consult ? Medication Reconciliation Pharmacy has completed the medication reconciliation.
--- NOTE | 2023-08-24 09:44 | PM.IMHP ---
History of Present Illness Date of Service: 08/24/23 Chief Complaint: confusion / agitation at home The patient is a 68 year old female with a PMH of alcohol use disorder with prior withdrawals, COPD, bipolar disorder / schizophrenia, HFpEF, DM and others who presented to [facility] via ambulance for confusion/agitation. Despite the use of a Ukrainian speaking cable spooler, the history is limited as the patient is unable to recall the events that led to her hospitalization. Hence, the history is obtained from the ED physician and nursing documentation. Per ED MD: Patient is 68 years old with history of polysubstance abuse fentanyl marijuana and alcohol with mood disorders, COPD, frequent aggression behavior EMS was called for increased aggression towards her off prior to arrival patient denies any complaints requesting to go back to her but patient obviously is intoxicated. Patient with our hospital for similar presentation multiple times patient afebrile on arrival very anxious denies any urinary complaints does have history of frequent UTI with ESBL infection Per ED RN: Per EMS pt's spouse called and reported that patient was confused, aggressive and combative. when patient arrived she was lethargic but arousable, yelling out. IV placed #20 R-forearm, labs drawn and sent. Pt requesting to go home,. MD at bedside and saw patient. Patient denies hitting her and saying she feels fine. Pt alert to person and place, assisted to the commode. This RN called to discuss plans for discharge. Corrie states that he can no longer take care of patient and he will not come to pick him up. made aware. In the ED, her UA showed: +wbc and esterase, + blood, neg bacteria / nitrites; SCr 1.41 (baseline .7-.9); She was given IVF and IV ertapenam and now will be admitted for further treatment. Review of Systems Review of Systems: Negative except HPI/interval history. [facility] Medical History COPD (chronic obstructive pulmonary disease) Effusion of shoulder joint, left Mass of joint of left shoulder Cannabis use disorder, moderate, dependence Dementia Korsakoff disease Chronic hyponatremia Schizophrenia Congestive heart failure Bipolar 1 disorder Osteoarthritis COPD (chronic obstructive pulmonary disease) Hypertension Diabetes Coronary artery disease Sleep apnea Alcohol use disorder Family History Sister Breast cancer, Onset Age: 40 Sister Breast cancer, Onset Age: 50 Surgical History Hx of appendectomy Household Members: Spouse Household Members Other:: 2 Housing: Apartment Do you presently have visiting nurse or other home services: Yes (-DIVING [employer]ER) Alcohol intake: never Patient Tobacco Use Status: Current everyday Tobacco user Tobacco use type: Cigarette Cigarette Packs Per Day: 0.5 Cigarettes Per Day: 10.0 Years Smoked: 53 Smoked in Last 30 Days: No e-Cigarette/Vaping Use: Never Used Second Hand Smoke Exposure: Yes Use of substances other than those prescribed or required for medical reasons: No Substance Use Type: Marijuana Advance Directives: Yes Advance Directives on File: Yes Advance Directives Date on File: 10/10/20 service: No Current occupational status: unemployed, disabled and other Sexual orientation: Straight/Heterosexual Meds Allergies Allergy/AdvReac Type Severity Reaction Status Date / Time fluticasone Allergy Unknown Verified 08/24/23 02:57 [From Advair Diskus] salmeterol Allergy Unknown Verified 08/24/23 02:57 [From Advair Diskus] paroxetine [From Paxil] AdvReac Intermediate Nausea and Verified 08/24/23 02:57 Vomiting Active Medications: Current Medications Enoxaparin Sodium (Enoxaparin Sodium 40 Mg/0.4 Ml Syringe) 40 mg SUBCUT Q24H [facility] Sodium Chloride (0.9 % Sodium Chloride Flush 3 Ml Syringe) 3 ml IVFLUSH QSHIFT [facility] Home Medications Medication Instructions Recorded Confirmed Last Taken Type albuterol sulfate 90 mcg/actuation 2 puff inhalation Q4-6H PRN 11/26/22 08/24/23 Unknown History aerosol inhaler (Ventolin HFA) Shortness Of Breath Or Wheezing aspirin 81 mg tablet,delayed 1 tab PO BEDTIME 11/26/22 08/24/23 Unknown History release folic acid 1 mg tablet 1 mg PO DAILY 11/26/22 08/24/23 Unknown History metoprolol succinate 25 mg 1 tab PO DAILY 11/26/22 08/24/23 Unknown History tablet,extended release 24 hr montelukast 10 mg tablet 1 tab PO BEDTIME 11/26/22 08/24/23 Unknown History omeprazole 40 mg capsule,delayed 1 cap PO DAILY@0630 11/26/22 08/24/23 Unknown History release pravastatin 20 mg tablet 1 tab PO BEDTIME 11/26/22 08/24/23 Unknown History thiamine HCl (vitamin B1) 100 mg 1 tab PO DAILY 11/26/22 08/24/23 Unknown History tablet trazodone 50 mg tablet 1 tab PO BEDTIME PRN insomnia 11/26/22 08/24/23 Unknown History ferrous sulfate 325 mg (65 mg 325 mg PO DAILY 01/31/23 08/24/23 Unknown History iron) tablet (FeroSul) fluticasone 250 mcg-salmeterol 50 1 ea inhalation BID 01/31/23 08/24/23 Unknown History mcg/dose blistr powdr for inhalation (Advair Diskus) ondansetron HCl 4 mg tablet 4 mg PO BID PRN nausea 01/31/23 08/24/23 Unknown History sennosides 8.6 mg tablet (senna) 8.6 mg PO BID PRN constipation 01/31/23 08/24/23 Unknown History acamprosate 333 mg tablet,delayed 666 mg PO TID 05/25/23 08/24/23 Unknown History release albuterol sulfate 2.5 mg/3 mL 2.5 mg inhalation Q4-6H PRN 05/25/23 08/24/23 Unknown History (0.083 %) solution for nebulization Wheezing famotidine 20 mg tablet 20 mg PO BID 05/25/23 08/24/23 Unknown History umeclidinium 62.5 mcg/actuation 1 inh inhalation DAILY 05/25/23 08/24/23 Unknown History blister powder for inhalation (Incruse Ellipta) Physical Exam Vital Signs and Narrative: Vital Signs: Last Vital Signs Temp 98.0 F 08/24/23 05:41 Pulse 67 08/24/23 05:41 Resp 16 08/24/23 05:41 BP 181/58 H 08/24/23 05:41 Pulse Ox 96 08/24/23 05:41 O2 Del Method Room Air 08/24/23 05:41 BMI result Body Mass Index 29.7 Const: Other: Constitutional - Awake and Alert, No apparent distress Eyes - PERRLA, EOMI Cardiovascular - S1S2, RRR, No edema Respiratory - Normal lung expansion, Normal respiratory effort, No respiratory distress, CTA bilaterally Gastrointestinal - NT / ND; +BS; No rebound or guarding - No CVA tenderness Extremities - no calf tenderness bilaterally, no swelling Musculoskeletal - Normal inspection, normal ROM Skin - Warm/Dry Neurological - Oriented to place otherwise disoriented to person and time, including her own ; able to follow basic commands Psychological - Appropriate affect Results Labs 08/24/23 04:01 08/24/23 04:01 Labs: Laboratory Results - last 24 hr 08/24/23 08/24/23 04:01 05:13 MCV 93.7 MCH 31.5 MCHC 33.6 RDW 13.3 Plt Count 247 MPV 9.0 L Absolute Nucleated RBC 0.000 Nucleated RBC % (auto) 0.0 Anion Gap 18 Estim Creat Clear Calc 34.9 Estimated GFR 37 Random Glucose 133 H Lactic Acid 1.2 Calcium 10.0 Total Bilirubin 0.3 AST 17 ALT 7 Alkaline Phosphatase 118 H Total Protein 8.4 H Albumin 4.2 Urine Color Yellow Urine Appearance Clear Urine pH 5.5 Ur Specific [place] 1.010 Urine Protein Trace Urine Glucose (UA) Negative Urine Ketones Negative Urine Blood Moderate (2+) H Urine Nitrite Negative Ur Leukocyte Esterase Moderate (2+) H Urine RBC 6-10 H Urine WBC 21-50 H Ur Squamous Epith Cells 0-2 Urine Bacteria None Seen Hyaline Casts 3-5 Urine Opiates Screen Not Detected Urine Fentanyl Screen Not Detected Ur Barbiturates Screen Not Detected Ur Phencyclidine Scrn Not Detected Ur Amphetamines Screen Not Detected U Benzodiazepines Scrn Not Detected Urine Cocaine Screen Not Detected U Marijuana (THC) Screen POSITIVE H Ethyl Alcohol < 10 Assessment and Plan (1) SAGAR (acute kidney injury): Status: Acute (2) Acute metabolic encephalopathy: Status: Acute Plan The patient is a 68 year old female with a PMH of alcohol use disorder with prior withdrawals, COPD, bipolar disorder / schizophrenia, HFpEF, DM and others who presented to [facility] ED via ambulance for confusion and agitation. She was felt to be intoxicated on arrival, but her drug screen and EtOH levels are negative. Her UA is equivocal, but given her confusion and known history of ESBL, she will be admitted for further care. 1. Acute toxic/metabolic encephalopathy 1a. Possible UTI Patient is currently oriented to place and self; baseline unclear possibly secondary to UTI/SAGAR vs toxic substances Given a dose of ertapenam in the ED -- will await ID input re: further antibiotics f/u cultures No evidence of sepsis at this time 2. SAGAR SCR 1.4 (greater than 0.3 from her baseline) IVF trend 3. DM POC sliding scale 4. COPD stable, continue baseline meds 5. History of EtOh abuse and prior withdrawal not evidence of active withdrawal at this time monitor with CIWA\ 6. Mood continue baseline meds Presumed Full code (pt unable to fully understand at this time and phone call to significant other went unanswered); HCP listed as significant other Magdy Whyte DVT pptx - lovenox Given patient's reported acute confusion / agitation in combination with her SAGAR and possible ESBL UTI -- I anticipate she will require a minimum of 48 hours of treatment (IVF, IV antibiotics, exper consult with ID). Hence, she will be admitted as inpatient. Quality Stroke Does the patient have a stroke diagnosis?: No VTE Prior VTE?: No VTE Risk Level:: Medical - moderate - high VTE Device Contraindication: N/A - Device Ordered VTE Drug Contraindication: N/A - Med Ordered
--- NOTE | 2023-08-24 11:57 | PC.NURSE ---
Patient removed all clothing stating she wants to just have blankets over her.
--- NOTE | 2023-08-24 14:29 | PC.NURSE ---
Patients called stating he is not taking her home. States to send her to a facility for LTC, case management notified
[2023-08-24 14:47] VITALS: BP 150/78; PULSE 71; RESP 18; TEMP 36.1; O2SAT 97
--- NOTE | 2023-08-24 15:12 | PC.NURSE ---
Report given to accepting unit
[2023-08-24 16:00] VITALS: BP 188/92; PULSE 88; RESP 18; TEMP 36.3; O2SAT 100
[2023-08-24 16:05] VITALS: BMI 29.4
[2023-08-24] MEDS: 0.9 % Sodium Chloride Flush 3 ML SYRINGE IVFLUSH ×2 (17:59→21:51)
[2023-08-24 19:13] VITALS: BP 134/70; PULSE 94; RESP 18; TEMP 36.2; O2SAT 93
[2023-08-24 20:10] LABS: Glucose, Whole Blood 157 mg/dL (60-115)
[2023-08-24] MEDS: traZODone HCL 50 MG TABLET PO (21:50)
[2023-08-24] MEDS: Pravastatin Sodium 20 MG TABLET PO (21:50)
[2023-08-24] MEDS: Aspirin Enteric Coated 81 MG TABLET.DR PO (21:50)
[2023-08-24] MEDS: QUEtiapine Fumarate 50 MG TABLET PO (21:50)
[2023-08-24] MEDS: Montelukast Sodium 10 MG TABLET PO (21:50)
[2023-08-25 04:00] VITALS: BP 152/72; PULSE 79; RESP 16; TEMP 36.9; O2SAT 92
[2023-08-25] MEDS: Omeprazole 40 MG CAPSULE.DR PO (06:08)
[2023-08-25 06:42] LABS: Anion Gap 12 (12-20); Blood Urea Nitrogen 18 mg/dL (9-16); Calcium 9.3 mg/dL (8.4-10.2); Carbon Dioxide 27 mmol/L (22-29); Chloride 107 mmol/L (96-108); Estimated Glomerular Filt Rate 57; Glucose Random 105 mg/dL (60-115); Potassium 4.5 mmol/L (3.3-5.1); Sodium 141 mmol/L (135-145)
[2023-08-25 07:52] LABS: Glucose, Whole Blood 103 mg/dL (60-115)
[2023-08-25 08:00] VITALS: BP 142/82; PULSE 79; RESP 18; TEMP 36.9; O2SAT 94
--- NOTE | 2023-08-25 09:13 | MHC.CM.PN ---
IMM ADDRESSED WITH SPOUSE/HCP MIKO. ELENA COPY TO BE MAILED TO HOME. PT LIVES WITH SPOUSE. PER SPOUSE, PT IS NON COMPLIANT AND HE IS UNABLE TO CARE FOR HER ANY LONGER SHE HAS RUINED MY LIFE HCP REQUESTS PLACEMENT IN A SNF. PT REMAINS WITH AMS SO INFORMATION GLEANED FROM SPOUSE. PT REQUIRES ASSIST AT BASELINE AND IS INCONT AT X'S. PER SPOUSE, SHE REFUSES TO LET ANYONE IN TO ASSIST (VNA, REHABILITATION NURSE, ETC) +HCP ON FILE. PCP DR. MO. PT WILL REQUIRE A P.T. EVAL/SNF PLACEMENT ON DC. CM WILL CONTINUE TO FOLLOW FOR ANY CHANGE IN DC PLAN/NEEDS.
[2023-08-25] MEDS: Folic Acid 1 MG TABLET PO (11:10)
[2023-08-25] MEDS: Enoxaparin Sodium 40 MG/0.4 ML SYRINGE SUBCUT (11:10)
[2023-08-25] MEDS: QUEtiapine Fumarate 50 MG TABLET PO ×2 (11:10→21:43)
[2023-08-25] MEDS: Thiamine HCL 100 MG TABLET PO (11:10)
[2023-08-25] MEDS: Multivitamin TABLET 1 TAB PO (11:10)
[2023-08-25] MEDS: Metoprolol Succinate ER 25 MG TAB.ER.24H PO (11:10)
[2023-08-25] MEDS: Famotidine 20 MG TABLET PO (11:10)
[2023-08-25] MEDS: 0.9 % Sodium Chloride Flush 3 ML SYRINGE IVFLUSH ×2 (11:10→16:18)
[2023-08-25 11:56] LABS: Glucose, Whole Blood 115 mg/dL (60-115)
--- NOTE | 2023-08-25 12:45 | HO.PM.IMPN ---
Subjective Subjective Date of Service: 08/25/23 Interval History: Acute toxic/metabolic encephalopathy Review of Systems seems more awake than yesterday denies any abd pain or fevers Physical Exam Vital Signs: Vital Signs: Last Vital Signs Temp 98.4 F 08/25/23 08:00 Pulse 79 08/25/23 08:00 Resp 18 08/25/23 08:00 BP 142/82 H 08/25/23 08:00 Pulse Ox 94 08/25/23 08:00 O2 Del Method Room Air 08/25/23 08:00 BMI result Body Mass Index 29.4 Appearance: Alert.? Oriented X3. cvs: rrr, [id number] . res: clear to auscultation ,no rhonchii or wheezing abd: no rebound or guarding ,nt, bs present. ext pulses present , no cyanosis . neuro: axo3 , nonfocal. Objective Data Active Medications Aspirin (Aspirin Enteric Coated 81 Mg Tablet.) 81 mg PO BEDTIME [facility] Last Admin: 08/24/23 21:50 Dose: 81 mg Documented By: ROBERT Enoxaparin Sodium (Enoxaparin Sodium 40 Mg/0.4 Ml Syringe) 40 mg SUBCUT Q24H [facility] Last Admin: 08/25/23 11:10 Dose: 40 mg Documented By: BAUTISTA Famotidine (Famotidine 20 Mg Tablet) 20 mg PO DAILY [facility] Last Admin: 08/25/23 11:10 Dose: 20 mg Documented By: BAUTISTA Folic Acid (Folic Acid 1 Mg Tablet) 1 mg PO DAILY [facility] Last Admin: 08/25/23 11:10 Dose: 1 mg Documented By: BAUTISTA Metoprolol Succinate (Metoprolol Succinate Er 25 Mg Tab.Er.24h) 25 mg PO DAILY [facility]; Protocol Last Admin: 08/25/23 11:10 Dose: 25 mg Documented By: BAUTISTA Montelukast Sodium (Montelukast Sodium 10 Mg Tablet) 10 mg PO BEDTIME [facility] Last Admin: 08/24/23 21:50 Dose: 10 mg Documented By: ROBERT Multivitamins/Vitamin C (Multivitamin Tablet) 1 tab PO DAILY [facility] Last Admin: 08/25/23 11:10 Dose: 1 tab Documented By: BAUTISTA Omeprazole (Omeprazole 40 Mg Capsule.) 40 mg PO DAILY@0630 [facility] Last Admin: 08/25/23 06:08 Dose: 40 mg Documented By: ROBERT Pravastatin Sodium (Pravastatin Sodium 20 Mg Tablet) 20 mg PO BEDTIME [facility] Last Admin: 08/24/23 21:50 Dose: 20 mg Documented By: ROBERT Quetiapine Fumarate (Quetiapine Fumarate 50 Mg Tablet) 50 mg PO BID [facility] Last Admin: 08/25/23 11:10 Dose: 50 mg Documented By: BAUTISTA Senna (Sennosides 8.6 Mg Tablet) 8.6 mg PO BID PRN PRN Reason: constipation Sodium Chloride (0.9 % Sodium Chloride Flush 3 Ml Syringe) 3 ml IVFLUSH QSHIFT [facility] Last Admin: 08/25/23 11:10 Dose: 3 ml Documented By: BAUTISTA Thiamine HCl (Thiamine Hcl 100 Mg Tablet) 100 mg PO DAILY [facility] Last Admin: 08/25/23 11:10 Dose: 100 mg Documented By: BAUTISTA Trazodone HCl (Trazodone Hcl 50 Mg Tablet) 50 mg PO BEDTIME PRN PRN Reason: insomnia Last Admin: 08/24/23 21:50 Dose: 50 mg Documented By: ROBERT Labs 08/24/23 04:01 08/25/23 06:14 Labs: Laboratory Results - last 24 hr 08/24/23 08/25/23 08/25/23 20:06 06:14 07:46 Hold Purple Top SEE NOTE Anion Gap 12 Estim Creat Clear Calc 51.0 Estimated GFR 57 POC Glucose 157 H 103 Random Glucose 105 Calcium 9.3 D 08/25/23 11:34 Hold Purple Top Anion Gap Estim Creat Clear Calc Estimated GFR POC Glucose 115 Random Glucose Calcium Microbiology Microbiology Results: Microbiology 08/24/23 Unknown Urine Culture - Preliminary Urine clean catch - Urine kim top Culture in progress. 08/24/23 04:19 Blood Culture - Preliminary Blood - Venous No growth after 24 hours. 08/24/23 04:01 Blood Culture - Preliminary Blood - Venous No growth after 24 hours. Assessment and Plan (1) SAGAR (acute kidney injury): Status: Acute (2) Acute UTI: Status: Acute (3) Acute metabolic encephalopathy: Status: Acute Plan 68 year old female with a PMH of alcohol use disorder with prior withdrawals, COPD, bipolar disorder / schizophrenia, HFpEF, DM and others who [place] [facility] [place] for confusion and agitation. She was felt to be intoxicated on arrival, but her drug screen and EtOH levels are negative. Her UA is equivocal, but given her confusion and known history of ESBL, she will be admitted for further care. Acute toxic/metabolic encephalopathy(possible multifactorial -possibly secondary to UTI/SAGAR vs toxic substances) No evidence of sepsis . she is more awake Given a dose of ertapenam in the ED -- will await ID input re: further antibiotics f/u cultures 2. SAGAR improved with hydration moniter bmp closely 3. DM: controlled. POC sliding scale 4. COPD stable, continue baseline meds 5. History of EtOh abuse and prior withdrawal not evidence of active withdrawal at this time monitor with CIWA 6. Mood continue baseline meds Presumed Full code (pt unable to fully understand at this time and phone call to significant other went unanswered); HCP listed as significant other Magdy Whyte . DVT pptx - lovenox ongoing hospitilsation need: acute confusion / agitation( Acute toxic/metabolic encephalopathy) in combination with her SAGAR and possible ESBL UTI -- I anticipate she will require a minimum of 48 hours of treatment (IVF, IV antibiotics, exper consult with ID). Hence, she will be admitted as inpatient. Quality Stroke Does the patient have a stroke diagnosis?: No VTE Prior VTE?: No VTE Risk Level:: Medical - moderate - high VTE Device Contraindication: N/A - Device Ordered VTE Drug Contraindication: N/A - Med Ordered
[2023-08-25 16:00] VITALS: BP 94/66; PULSE 93; RESP 18; TEMP 36.3; O2SAT 98
[2023-08-25 16:35] LABS: Glucose, Whole Blood 103 mg/dL (60-115)
--- NOTE | 2023-08-25 16:38 | PC.NURSE ---
ok to keep IV out per Dr. Patiño
[2023-08-25 19:52] VITALS: BP 106/55; PULSE 99; RESP 18; TEMP 36.4; O2SAT 93
[2023-08-25 20:55] LABS: Glucose, Whole Blood 130 mg/dL (60-115)
[2023-08-25] MEDS: Aspirin Enteric Coated 81 MG TABLET.DR PO (21:42)
[2023-08-25] MEDS: Montelukast Sodium 10 MG TABLET PO (21:43)
[2023-08-25] MEDS: Pravastatin Sodium 20 MG TABLET PO (21:43)
[2023-08-26] VITALS (7 sets, daily range): BP systolic 111–152; BP diastolic 57–72; PULSE 72–87; RESP 16–20; TEMP 36.2–36.6; O2SAT 93–99
[2023-08-26] MEDS: Morphine Sulfate 2 MG/ML CARTRIDGE IVPUSH ×2 (01:56→10:17)
[2023-08-26] MEDS: Omeprazole 40 MG CAPSULE.DR PO (05:33)
[2023-08-26 07:41] LABS: Glucose, Whole Blood 93 mg/dL (60-115)
[2023-08-26] MEDS: Ipratropium Bromide 0.5 MG/2.5 ML SOLUTION INHALE ×3 (07:41→15:33)
[2023-08-26] MEDS: Folic Acid 1 MG TABLET PO (10:18)
[2023-08-26] MEDS: Multivitamin TABLET 1 TAB PO (10:18)
[2023-08-26] MEDS: Thiamine HCL 100 MG TABLET PO (10:18)
[2023-08-26] MEDS: Metoprolol Succinate ER 25 MG TAB.ER.24H PO (10:18)
[2023-08-26] MEDS: Enoxaparin Sodium 40 MG/0.4 ML SYRINGE SUBCUT (10:18)
[2023-08-26] MEDS: QUEtiapine Fumarate 50 MG TABLET PO ×2 (10:18→20:01)
[2023-08-26] MEDS: Famotidine 20 MG TABLET PO (10:18)
[2023-08-26] MEDS: 0.9 % Sodium Chloride Flush 3 ML SYRINGE IVFLUSH ×2 (10:18→15:45)
--- NOTE | 2023-08-26 11:57 | HO.PM.IMPN ---
Subjective Subjective Date of Service: 08/26/23 Interval History: Toxic metabolic encephalopathy Review of Systems mental status seems improving denies any urinary c/o Physical Exam Vital Signs: Vital Signs: Last Vital Signs Temp 97.3 F 08/26/23 07:18 Pulse 85 08/26/23 11:37 Resp 20 08/26/23 11:37 BP 111/57 L 08/26/23 07:18 Pulse Ox 94 08/26/23 07:18 O2 Del Method Room Air 08/26/23 07:18 BMI result Body Mass Index 29.4 Appearance: more awake and alert cvs: rrr, [id number] , no murmur res: clear to auscultation ,no rhonchii or wheezing abd: no rebound or guarding ,nt, bs present. ext pulses present , no cyanosis. neuro: nonfocal. Objective Data Active Medications Albuterol Sulfate (Albuterol Sulfate 90 Mcg 8 Gm Inhaler) 2 puff INHALE RQ4H PRN PRN Reason: sob Aspirin (Aspirin Enteric Coated 81 Mg Tablet.Dr) 81 mg PO BEDTIME [facility] Last Admin: 08/25/23 21:42 Dose: 81 mg Documented By: ALYCIA Enoxaparin Sodium (Enoxaparin Sodium 40 Mg/0.4 Ml Syringe) 40 mg SUBCUT Q24H [facility] Last Admin: 08/26/23 10:18 Dose: 40 mg Documented By: TOMMY Famotidine (Famotidine 20 Mg Tablet) 20 mg PO DAILY [facility] Last Admin: 08/26/23 10:18 Dose: 20 mg Documented By: TOMMY Folic Acid (Folic Acid 1 Mg Tablet) 1 mg PO DAILY [facility] Last Admin: 08/26/23 10:18 Dose: 1 mg Documented By: TOMMY Meropenem 1 gm/ Sodium (Chloride) 100 mls @ 200 mls/hr IV Q8H [facility] Last Infusion: 08/26/23 06:27 Dose: Infused Documented By: ALYCIA Ipratropium Jewell (Ipratropium Jewell 0.5 Mg/2.5 Ml Solution) 0.5 mg INHALE RQ4H WHILE AWAKE [facility] Last Admin: 08/26/23 11:34 Dose: 0.5 mg Documented By: ELIDIA Metoprolol Succinate (Metoprolol Succinate Er 25 Mg Tab.Er.24h) 25 mg PO DAILY [facility]; Protocol Last Admin: 08/26/23 10:18 Dose: 25 mg Documented By: TOMMY Montelukast Sodium (Montelukast Sodium 10 Mg Tablet) 10 mg PO BEDTIME [facility] Last Admin: 08/25/23 21:43 Dose: 10 mg Documented By: ALYCIA Morphine Sulfate (Morphine Sulfate 2 Mg/Ml Cartridge) 2 mg IVPUSH Q3H PRN; Protocol PRN Reason: mod pain Last Admin: 08/26/23 10:17 Dose: 2 mg Documented By: TOMMY Multivitamins/Vitamin C (Multivitamin Tablet) 1 tab PO DAILY [facility] Last Admin: 08/26/23 10:18 Dose: 1 tab Documented By: TOMMY Omeprazole (Omeprazole 40 Mg Capsule.Dr) 40 mg PO DAILY@0630 [facility] Last Admin: 08/26/23 05:33 Dose: 40 mg Documented By: ALYCIA Pravastatin Sodium (Pravastatin Sodium 20 Mg Tablet) 20 mg PO BEDTIME [facility] Last Admin: 08/25/23 21:43 Dose: 20 mg Documented By: ALYCIA Quetiapine Fumarate (Quetiapine Fumarate 50 Mg Tablet) 50 mg PO BID [facility] Last Admin: 08/26/23 10:18 Dose: 50 mg Documented By: TOMMY Senna (Sennosides 8.6 Mg Tablet) 8.6 mg PO BID PRN PRN Reason: constipation Sodium Chloride (0.9 % Sodium Chloride Flush 3 Ml Syringe) 3 ml IVFLUSH QSHIFT [facility] Last Admin: 08/26/23 10:18 Dose: 3 ml Documented By: TOMMY Thiamine HCl (Thiamine Hcl 100 Mg Tablet) 100 mg PO DAILY [facility] Last Admin: 08/26/23 10:18 Dose: 100 mg Documented By: TOMMY Trazodone HCl (Trazodone Hcl 50 Mg Tablet) 50 mg PO BEDTIME PRN PRN Reason: insomnia Last Admin: 08/24/23 21:50 Dose: 50 mg Documented By: ROBERT Labs 08/24/23 04:01 08/25/23 06:14 Labs: Laboratory Results - last 24 hr 08/25/23 08/25/23 08/25/23 11:34 16:30 20:49 POC Glucose 115 103 130 H 08/26/23 07:21 POC Glucose 93 Microbiology Microbiology Results: Microbiology 08/24/23 Unknown Urine Culture - Final Urine clean catch - Urine kim top 08/24/23 04:19 Blood Culture - Preliminary Blood - Venous No growth after 48 hours. 08/24/23 04:01 Blood Culture - Preliminary Blood - Venous No growth after 48 hours. Assessment and Plan (1) Acute UTI: Status: Acute (2) SAGAR (acute kidney injury): Status: Acute Plan 68 year old female with a PMH of alcohol use disorder with prior withdrawals, COPD, bipolar disorder / schizophrenia, HFpEF, DM and others who presented to [facility] via ambulance for confusion and agitation. She was felt to be intoxicated on arrival, but her drug screen and EtOH levels are negative. Her UA is equivocal, but given her confusion and known history of ESBL, she will be admitted for further care. Acute toxic/metabolic encephalopathy(possible multifactorial -possibly secondary to UTI/SAGAR vs toxic substances) No evidence of sepsis . she is more awake urine culture-might contaminant will repeat urine cultures Given a dose of ertapenam in the ED -- will await ID input re: further antibiotics f/u cultures 2. SAGAR improved with hydration moniter bmp closely 3. DM: controlled. POC sliding scale 4. COPD stable, continue baseline meds 5. History of EtOh abuse and prior withdrawal not evidence of active withdrawal at this time monitor with CIWA 6. Mood continue baseline meds Presumed Full code (pt unable to fully understand at this time and phone call to significant other went unanswered); HCP listed as significant other Magdy Whyte . DVT pptx - lovenox ongoing hospitilsation need: Acute toxic/metabolic encephalopathy) in combination with her SAGAR and possible ESBL UTI -- minimum of 48-72hours of treatment (IVF, IV antibiotics, exper consult with ID). Hence, she will be admitted as inpatient. Quality Stroke Does the patient have a stroke diagnosis?: No VTE Prior VTE?: No VTE Risk Level:: Medical - moderate - high VTE Device Contraindication: N/A - Device Ordered VTE Drug Contraindication: N/A - Med Ordered
[2023-08-26 12:28] LABS: Glucose, Whole Blood 144 mg/dL (60-115)
[2023-08-26 16:16] LABS: Glucose, Whole Blood 146 mg/dL (60-115)
[2023-08-26] MEDS: traZODone HCL 50 MG TABLET PO (20:01)
[2023-08-26] MEDS: Pravastatin Sodium 20 MG TABLET PO (20:01)
[2023-08-26] MEDS: Montelukast Sodium 10 MG TABLET PO (20:01)
[2023-08-26] MEDS: Aspirin Enteric Coated 81 MG TABLET.DR PO (20:01)
[2023-08-26 20:09] LABS: Glucose, Whole Blood 121 mg/dL (60-115)
[2023-08-26] MEDS: Melatonin 3 MG TABLET PO (22:55)
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
[2023-08-27] VITALS (7 sets, daily range): BP systolic 141–158; BP diastolic 68–80; PULSE 62–81; RESP 16–20; TEMP 36.2–36.9; O2SAT 95–100
[2023-08-27] MEDS: oxyCODONE HCl Immed Release 5 MG TABLET PO ×2 (03:12→06:37)
[2023-08-27] MEDS: Omeprazole 40 MG CAPSULE.DR PO (06:36)
[2023-08-27 07:27] LABS: Glucose, Whole Blood 127 mg/dL (60-115)
[2023-08-27] MEDS: Ipratropium Bromide 0.5 MG/2.5 ML SOLUTION INHALE ×2 (07:31→15:02)
[2023-08-27] MEDS: Folic Acid 1 MG TABLET PO (09:03)
[2023-08-27] MEDS: Multivitamin TABLET 1 TAB PO (09:03)
[2023-08-27] MEDS: QUEtiapine Fumarate 50 MG TABLET PO ×2 (09:03→19:58)
[2023-08-27] MEDS: Famotidine 20 MG TABLET PO (09:03)
[2023-08-27] MEDS: Enoxaparin Sodium 40 MG/0.4 ML SYRINGE SUBCUT (09:03)
[2023-08-27] MEDS: Thiamine HCL 100 MG TABLET PO (09:03)
[2023-08-27] MEDS: Metoprolol Succinate ER 25 MG TAB.ER.24H PO (09:03)
[2023-08-27] MEDS: 0.9 % Sodium Chloride Flush 3 ML SYRINGE IVFLUSH ×3 (09:04→19:58)
[2023-08-27 11:44] LABS: Glucose, Whole Blood 98 mg/dL (60-115)
--- NOTE | 2023-08-27 13:37 | MHC.CM.PN ---
Addendum entered by Lucy Sanabria RN 08/27/23 15:44: [facility] is going for auth. Original Note: EMR REVIEWED. PER MD ROUNDS NOT MEDICALLY CLEARED FOR DC, LIKELY TOMORROW. SENT UPDATE TO [facility] WITH REQUEST TO GO FOR AUTH. AWAITING RESPONSE. ALSO LEFT VM. SENT ADDITIONAL REFERRAL TO [facility] WHO IS REVIEWING.
--- NOTE | 2023-08-27 15:22 | P.PNIM_ITS ---
Subjective Subjective Date of Service: 08/27/23 Interval History: Toxic metabolic encephalopathy,? uti Review of Systems mental status seems improving denies any urinary c/o Physical Exam 2 Vital Signs: Vital Signs: Last Vital Signs Temp 98.2 F 08/27/23 07:12 Pulse 62 08/27/23 15:04 Resp 18 08/27/23 15:04 BP 144/68 H 08/27/23 07:12 Pulse Ox 96 08/27/23 07:12 O2 Del Method Room Air 08/27/23 07:12 BMI result Body Mass Index 29.4 Appearance: more awake and alert cvs: rrr, [id number] , no murmur res: clear to auscultation ,no rhonchii or wheezing abd: no rebound or guarding ,nt, bs present. ext pulses present , no cyanosis. neuro: nonfocal. Objective Data Active Medications Albuterol Sulfate (Albuterol Sulfate 90 Mcg 8 Gm Inhaler) 2 puff INHALE RQ4H PRN PRN Reason: sob Aspirin (Aspirin Enteric Coated 81 Mg Tablet.) 81 mg PO BEDTIME [facility] Last Admin: 08/26/23 20:01 Dose: 81 mg Documented By: ROMARIO Enoxaparin Sodium (Enoxaparin Sodium 40 Mg/0.4 Ml Syringe) 40 mg SUBCUT Q24H [facility] Last Admin: 08/27/23 09:03 Dose: 40 mg Documented By: MERLIN Famotidine (Famotidine 20 Mg Tablet) 20 mg PO DAILY [facility] Last Admin: 08/27/23 09:03 Dose: 20 mg Documented By: MERLIN Folic Acid (Folic Acid 1 Mg Tablet) 1 mg PO DAILY [facility] Last Admin: 08/27/23 09:03 Dose: 1 mg Documented By: MERLIN Ipratropium [place] (Ipratropium [place] 0.5 Mg/2.5 Ml Solution) 0.5 mg INHALE RQ4H WHILE AWAKE [facility] Last Admin: 08/27/23 15:02 Dose: 0.5 mg Documented By: JHONNY Metoprolol Succinate (Metoprolol Succinate Er 25 Mg Tab.Er.24h) 25 mg PO DAILY [facility]; Protocol Last Admin: 08/27/23 09:03 Dose: 25 mg Documented By: MERLIN Montelukast Sodium (Montelukast Sodium 10 Mg Tablet) 10 mg PO BEDTIME [facility] Last Admin: 08/26/23 20:01 Dose: 10 mg Documented By: ROMARIO Morphine Sulfate (Morphine Sulfate 2 Mg/Ml Cartridge) 2 mg IVPUSH Q3H PRN; Protocol PRN Reason: mod pain Last Admin: 08/26/23 10:17 Dose: 2 mg Documented By: TOMMY Multivitamins/Vitamin C (Multivitamin Tablet) 1 tab PO DAILY [facility] Last Admin: 08/27/23 09:03 Dose: 1 tab Documented By: MERLIN Omeprazole (Omeprazole 40 Mg Capsule.Dr) 40 mg PO DAILY@0630 [facility] Last Admin: 08/27/23 06:36 Dose: 40 mg Documented By: LEONORA Oxycodone HCl (Oxycodone Hcl Immed Release 5 Mg Tablet) 5 mg PO Q4H PRN PRN Reason: mod pain Last Admin: 08/27/23 06:37 Dose: 5 mg Documented By: LEONORA Pravastatin Sodium (Pravastatin Sodium 20 Mg Tablet) 20 mg PO BEDTIME [facility] Last Admin: 08/26/23 20:01 Dose: 20 mg Documented By: ROMARIO Quetiapine Fumarate (Quetiapine Fumarate 50 Mg Tablet) 50 mg PO BID [facility] Last Admin: 08/27/23 09:03 Dose: 50 mg Documented By: MERLIN Senna (Sennosides 8.6 Mg Tablet) 8.6 mg PO BID PRN PRN Reason: constipation Sodium Chloride (0.9 % Sodium Chloride Flush 3 Ml Syringe) 3 ml IVFLUSH QSHIFT [facility] Last Admin: 08/27/23 09:04 Dose: 3 ml Documented By: MERLIN Thiamine HCl (Thiamine Hcl 100 Mg Tablet) 100 mg PO DAILY [facility] Last Admin: 08/27/23 09:03 Dose: 100 mg Documented By: MERLIN Trazodone HCl (Trazodone Hcl 50 Mg Tablet) 50 mg PO BEDTIME PRN PRN Reason: insomnia Last Admin: 08/26/23 20:01 Dose: 50 mg Documented By: ROMARIO Labs 08/24/23 04:01 08/25/23 06:14 Labs: Laboratory Results - last 24 hr 08/26/23 08/26/23 08/27/23 15:55 20:06 07:19 POC Glucose 146 H 121 H 127 H 08/27/23 11:33 POC Glucose 98 Microbiology Microbiology Results: Microbiology 08/26/23 13:44 Urine Culture - Final Urine clean catch - Clean Catch Midstream No growth. 08/24/23 Unknown Urine Culture - Final Urine clean catch - Urine kim top Assessment and Plan (1) SAGAR (acute kidney injury): Status: Acute (2) Acute metabolic encephalopathy: Status: Acute Plan 68 year old female with a PMH of alcohol use disorder with prior withdrawals, COPD, bipolar disorder / schizophrenia, HFpEF, DM and others who presented to [facility] via ambulance for confusion and agitation. She was felt to be intoxicated on arrival, but her drug screen and EtOH levels are negative. Her UA is equivocal, but given her confusion and known history of ESBL, she will be admitted for further care. Acute toxic/metabolic encephalopathy(possible multifactorial -possibly secondary to UTI/SAGAR vs toxic substances) No evidence of sepsis . she is more awake urine culture-might contaminant Urine culture negative, seen by ID less likely UTI: DC IV antibiotics. 2. SAGAR improved with hydration moniter bmp closely 3. DM: controlled. POC sliding scale 4. COPD stable, continue baseline meds 5. History of EtOh abuse and prior withdrawal not evidence of active withdrawal at this time monitor with CIWA 6. Mood continue baseline meds Generalized weak: Patient was seen by PT recommended STIR. Presumed Full code (pt unable to fully understand at this time and phone call to significant other went unanswered); HCP listed as significant other Magdy Whyte . DVT pptx - lovenox ongoing hospitilsation need: Awaiting ST r Quality Stroke Does the patient have a stroke diagnosis?: No VTE Prior VTE?: No VTE Risk Level:: Medical - moderate - high VTE Device Contraindication: N/A - Device Ordered VTE Drug Contraindication: N/A - Med Ordered
[2023-08-27 16:33] LABS: Glucose, Whole Blood 124 mg/dL (60-115)
[2023-08-27] MEDS: Montelukast Sodium 10 MG TABLET PO (19:58)
[2023-08-27] MEDS: Aspirin Enteric Coated 81 MG TABLET.DR PO (19:58)
[2023-08-27] MEDS: Pravastatin Sodium 20 MG TABLET PO (19:58)
[2023-08-27 20:57] LABS: Glucose, Whole Blood 134 mg/dL (60-115)
[2023-08-28] MEDS: Albuterol Sulfate 90 MCG 8 GM INHALER 2 PUFF INHALE ×2 (00:42→05:13)
[2023-08-28] MEDS: traZODone HCL 50 MG TABLET PO ×2 (00:48→22:33)
[2023-08-28] MEDS: oxyCODONE HCl Immed Release 5 MG TABLET PO ×3 (00:54→15:59)
[2023-08-28 03:54] VITALS: BP 142/65; PULSE 70; RESP 18; TEMP 36.6; O2SAT 94
[2023-08-28] MEDS: Omeprazole 40 MG CAPSULE.DR PO (06:25)
[2023-08-28 07:13] VITALS: BP 156/66; PULSE 74; RESP 17; TEMP 36.6; O2SAT 95
[2023-08-28 07:26] LABS: Glucose, Whole Blood 112 mg/dL (60-115)
[2023-08-28] MEDS: Folic Acid 1 MG TABLET PO (08:28)
[2023-08-28] MEDS: 0.9 % Sodium Chloride Flush 3 ML SYRINGE IVFLUSH ×2 (08:28→20:49)
[2023-08-28] MEDS: Multivitamin TABLET 1 TAB PO (08:28)
[2023-08-28] MEDS: Famotidine 20 MG TABLET PO (08:28)
[2023-08-28] MEDS: Enoxaparin Sodium 40 MG/0.4 ML SYRINGE SUBCUT (08:28)
[2023-08-28] MEDS: Metoprolol Succinate ER 25 MG TAB.ER.24H PO (08:28)
[2023-08-28] MEDS: Thiamine HCL 100 MG TABLET PO (08:28)
[2023-08-28] MEDS: QUEtiapine Fumarate 50 MG TABLET PO ×2 (08:28→20:49)
[2023-08-28] MEDS: Ipratropium Bromide 0.5 MG/2.5 ML SOLUTION INHALE (08:41)
[2023-08-28 08:42] VITALS: PULSE 84; RESP 16; O2SAT 96
[2023-08-28 11:11] LABS: Glucose, Whole Blood 162 mg/dL (60-115)
--- NOTE | 2023-08-28 14:35 | P.PNIM_ITS ---
Subjective Subjective Date of Service: 08/29/23 Interval History: Toxic metabolic encephalopathy Review of Systems Denies any chest pain shortness of breath or abdominal pain or fever chills says Physical Exam 2 Vital Signs: Vital Signs: Last Vital Signs Temp 98 F 08/28/23 07:13 Pulse 84 08/28/23 08:42 Resp 16 08/28/23 08:42 BP 156/66 H 08/28/23 07:13 Pulse Ox 95 08/28/23 07:13 O2 Del Method Room Air 08/28/23 07:13 BMI result Body Mass Index 29.4 Appearance: more awake and alert cvs: rrr, [id number] , no murmur res: clear to auscultation ,no rhonchii or wheezing abd: no rebound or guarding ,nt, bs present. ext pulses present , no cyanosis. neuro: nonfocal. Objective Data Active Medications Albuterol Sulfate (Albuterol Sulfate 90 Mcg 8 Gm Inhaler) 2 puff INHALE RQ4H PRN PRN Reason: sob Last Admin: 08/28/23 05:13 Dose: 2 puff Documented By: PATRICIA Aspirin (Aspirin Enteric Coated 81 Mg Tablet.Dr) 81 mg PO BEDTIME [facility] Last Admin: 08/27/23 19:58 Dose: 81 mg Documented By: PATRICIA Enoxaparin Sodium (Enoxaparin Sodium 40 Mg/0.4 Ml Syringe) 40 mg SUBCUT Q24H [facility] Last Admin: 08/28/23 08:28 Dose: 40 mg Documented By: PARAG Famotidine (Famotidine 20 Mg Tablet) 20 mg PO DAILY [facility] Last Admin: 08/28/23 08:28 Dose: 20 mg Documented By: PARAG Folic Acid (Folic Acid 1 Mg Tablet) 1 mg PO DAILY [facility] Last Admin: 08/28/23 08:28 Dose: 1 mg Documented By: PARAG Ipratropium [place] (Ipratropium [place] 0.5 Mg/2.5 Ml Solution) 0.5 mg INHALE RQ4H WHILE AWAKE [facility] Last Admin: 08/28/23 11:16 Dose: Not Given Documented By: ELIDIA Non-Admin Reason: Patient Asleep Metoprolol Succinate (Metoprolol Succinate Er 25 Mg Tab.Er.24h) 25 mg PO DAILY [facility]; Protocol Last Admin: 08/28/23 08:28 Dose: 25 mg Documented By: PARAG Montelukast Sodium (Montelukast Sodium 10 Mg Tablet) 10 mg PO BEDTIME [facility] Last Admin: 08/27/23 19:58 Dose: 10 mg Documented By: PATRICIA Morphine Sulfate (Morphine Sulfate 2 Mg/Ml Cartridge) 2 mg IVPUSH Q3H PRN; Protocol PRN Reason: mod pain Last Admin: 08/26/23 10:17 Dose: 2 mg Documented By: TOMMY Multivitamins/Vitamin C (Multivitamin Tablet) 1 tab PO DAILY [facility] Last Admin: 08/28/23 08:28 Dose: 1 tab Documented By: PARAG Omeprazole (Omeprazole 40 Mg Capsule.Dr) 40 mg PO DAILY@0630 [facility] Last Admin: 08/28/23 06:25 Dose: 40 mg Documented By: PATRICIA Oxycodone HCl (Oxycodone Hcl Immed Release 5 Mg Tablet) 5 mg PO Q4H PRN PRN Reason: mod pain Last Admin: 08/28/23 05:04 Dose: 5 mg Documented By: PATRICIA Pravastatin Sodium (Pravastatin Sodium 20 Mg Tablet) 20 mg PO BEDTIME [facility] Last Admin: 08/27/23 19:58 Dose: 20 mg Documented By: PATRICIA Quetiapine Fumarate (Quetiapine Fumarate 50 Mg Tablet) 50 mg PO BID [facility] Last Admin: 08/28/23 08:28 Dose: 50 mg Documented By: PARAG Senna (Sennosides 8.6 Mg Tablet) 8.6 mg PO BID PRN PRN Reason: constipation Sodium Chloride (0.9 % Sodium Chloride Flush 3 Ml Syringe) 3 ml IVFLUSH QSHIFT [facility] Last Admin: 08/28/23 08:28 Dose: 3 ml Documented By: PARAG Thiamine HCl (Thiamine Hcl 100 Mg Tablet) 100 mg PO DAILY [facility] Last Admin: 08/28/23 08:28 Dose: 100 mg Documented By: PARAG Trazodone HCl (Trazodone Hcl 50 Mg Tablet) 50 mg PO BEDTIME PRN PRN Reason: insomnia Last Admin: 08/28/23 00:48 Dose: 50 mg Documented By: PATRICIA Labs 08/24/23 04:01 08/25/23 06:14 Labs: Laboratory Results - last 24 hr 08/27/23 08/27/23 08/28/23 16:17 20:41 07:13 POC Glucose 124 H 134 H 112 08/28/23 11:03 POC Glucose 162 H Microbiology Microbiology Results: Microbiology 08/26/23 13:44 Urine Culture - Final Urine clean catch - Clean Catch Midstream No growth. Assessment and Plan (1) Acute metabolic encephalopathy: Status: Acute Plan 68 year old female with a PMH of alcohol use disorder with prior withdrawals, COPD, bipolar disorder / schizophrenia, HFpEF, DM and others who presented to [facility] via ambulance for confusion and agitation. She was felt to be intoxicated on arrival, but her drug screen and EtOH levels are negative. Her UA is equivocal, but given her confusion and known history of ESBL, she will be admitted for further care. Acute toxic/metabolic encephalopathy(possible multifactorial -possibly secondary to UTI/SAGAR vs toxic substances) No evidence of sepsis . she is more awake urine culture-might contaminant Urine culture negative, seen by ID less likely UTI: DC IV antibiotics. 2. SAGAR improved with hydration moniter bmp closely 3. DM: controlled. POC sliding scale 4. COPD stable, continue baseline meds 5. History of EtOh abuse and prior withdrawal not evidence of active withdrawal at this time 6. Mood continue baseline meds Generalized weak: Patient was seen by PT recommended STIR. Presumed Full code (pt unable to fully understand at this time and phone call to significant other went unanswered); HCP listed as significant other Magdy Whyte . DVT pptx - lovenox ongoing hospitilsation need: Awaiting ST r Quality Stroke Does the patient have a stroke diagnosis?: No VTE Prior VTE?: No VTE Risk Level:: Medical - moderate - high VTE Device Contraindication: N/A - Device Ordered VTE Drug Contraindication: N/A - Med Ordered
[2023-08-28 16:00] VITALS: BP 156/72; PULSE 80; RESP 16; TEMP 36.6; O2SAT 95
[2023-08-28 17:14] LABS: Glucose, Whole Blood 122 mg/dL (60-115)
[2023-08-28 20:00] VITALS: BP 142/64; PULSE 75; RESP 16; TEMP 36.2; O2SAT 94
[2023-08-28 20:17] LABS: Glucose, Whole Blood 124 mg/dL (60-115)
[2023-08-28] MEDS: Aspirin Enteric Coated 81 MG TABLET.DR PO (20:49)
[2023-08-28] MEDS: Montelukast Sodium 10 MG TABLET PO (20:49)
[2023-08-28] MEDS: Pravastatin Sodium 20 MG TABLET PO (20:49)
[2023-08-29] MEDS: oxyCODONE HCl Immed Release 5 MG TABLET PO ×3 (01:32→16:50)
[2023-08-29 03:40] VITALS: BP 129/63; PULSE 72; RESP 18; TEMP 36.3; O2SAT 96
[2023-08-29] MEDS: Albuterol Sulfate 90 MCG 8 GM INHALER 2 PUFF INHALE ×2 (04:57→16:46)
[2023-08-29] MEDS: Omeprazole 40 MG CAPSULE.DR PO (05:34)
[2023-08-29 07:16] VITALS: BP 141/63; PULSE 99; RESP 18; TEMP 36.7; O2SAT 93
[2023-08-29 07:40] LABS: Glucose, Whole Blood 143 mg/dL (60-115)
[2023-08-29] MEDS: Folic Acid 1 MG TABLET PO (09:19)
[2023-08-29] MEDS: Multivitamin TABLET 1 TAB PO (09:19)
[2023-08-29] MEDS: Famotidine 20 MG TABLET PO (09:19)
[2023-08-29] MEDS: Thiamine HCL 100 MG TABLET PO (09:19)
[2023-08-29] MEDS: Metoprolol Succinate ER 25 MG TAB.ER.24H PO (09:19)
[2023-08-29] MEDS: Enoxaparin Sodium 40 MG/0.4 ML SYRINGE SUBCUT (09:19)
[2023-08-29] MEDS: Sennosides 8.6 MG TABLET PO (09:20)
[2023-08-29] MEDS: QUEtiapine Fumarate 50 MG TABLET PO ×2 (09:20→20:59)
[2023-08-29] MEDS: 0.9 % Sodium Chloride Flush 3 ML SYRINGE IVFLUSH (09:20)
--- NOTE | 2023-08-29 11:25 | P.PNIM_ITS ---
Subjective Subjective Date of Service: 08/29/23 Interval History: Toxic metabolic encephalopathy Review of Systems no new c/o Physical Exam 2 Vital Signs: Vital Signs: Last Vital Signs Temp 98.1 F 08/29/23 07:16 Pulse 99 08/29/23 07:16 Resp 18 08/29/23 07:16 BP 141/63 H 08/29/23 07:16 Pulse Ox 93 08/29/23 07:16 O2 Del Method Room Air 08/29/23 07:16 BMI result Body Mass Index 29.4 Appearance: more awake and alert cvs: rrr, [id number] , no murmur res: clear to auscultation ,no rhonchii or wheezing abd: no rebound or guarding ,nt, bs present. ext pulses present , no cyanosis. neuro: nonfocal. Objective Data Active Medications Albuterol Sulfate (Albuterol Sulfate 90 Mcg 8 Gm Inhaler) 2 puff INHALE RQ4H PRN PRN Reason: sob Last Admin: 08/29/23 04:57 Dose: 2 puff Documented By: PATRICIA Aspirin (Aspirin Enteric Coated 81 Mg Tablet.Dr) 81 mg PO BEDTIME [facility] Last Admin: 08/28/23 20:49 Dose: 81 mg Documented By: PATRICIA Enoxaparin Sodium (Enoxaparin Sodium 40 Mg/0.4 Ml Syringe) 40 mg SUBCUT Q24H [facility] Last Admin: 08/29/23 09:19 Dose: 40 mg Documented By: JCARLOS Famotidine (Famotidine 20 Mg Tablet) 20 mg PO DAILY [facility] Last Admin: 08/29/23 09:19 Dose: 20 mg Documented By: JCARLOS Folic Acid (Folic Acid 1 Mg Tablet) 1 mg PO DAILY [facility] Last Admin: 08/29/23 09:19 Dose: 1 mg Documented By: JCARLOS Ipratropium Frederick (Ipratropium Frederick 0.5 Mg/2.5 Ml Solution) 0.5 mg INHALE RQ4H WHILE AWAKE [facility] Last Admin: 08/29/23 08:16 Dose: Not Given Documented By: PARISH Non-Admin Reason: Patient Refused Metoprolol Succinate (Metoprolol Succinate Er 25 Mg Tab.Er.24h) 25 mg PO DAILY [facility]; Protocol Last Admin: 08/29/23 09:19 Dose: 25 mg Documented By: JCARLOS Montelukast Sodium (Montelukast Sodium 10 Mg Tablet) 10 mg PO BEDTIME [facility] Last Admin: 08/28/23 20:49 Dose: 10 mg Documented By: PATRICIA Morphine Sulfate (Morphine Sulfate 2 Mg/Ml Cartridge) 2 mg IVPUSH Q3H PRN; Protocol PRN Reason: mod pain Last Admin: 08/26/23 10:17 Dose: 2 mg Documented By: TOMMY Multivitamins/Vitamin C (Multivitamin Tablet) 1 tab PO DAILY [facility] Last Admin: 08/29/23 09:19 Dose: 1 tab Documented By: JCARLOS Omeprazole (Omeprazole 40 Mg Capsule.Dr) 40 mg PO DAILY@0630 [facility] Last Admin: 08/29/23 05:34 Dose: 40 mg Documented By: PATRICIA Oxycodone HCl (Oxycodone Hcl Immed Release 5 Mg Tablet) 5 mg PO Q4H PRN PRN Reason: mod pain Last Admin: 08/29/23 09:20 Dose: 5 mg Documented By: JCARLOS Pravastatin Sodium (Pravastatin Sodium 20 Mg Tablet) 20 mg PO BEDTIME [facility] Last Admin: 08/28/23 20:49 Dose: 20 mg Documented By: PATRICIA Quetiapine Fumarate (Quetiapine Fumarate 50 Mg Tablet) 50 mg PO BID [facility] Last Admin: 08/29/23 09:20 Dose: 50 mg Documented By: COTEMA Senna (Sennosides 8.6 Mg Tablet) 8.6 mg PO BID PRN PRN Reason: constipation Last Admin: 08/29/23 09:20 Dose: 8.6 mg Documented By: COTEMA Sodium Chloride (0.9 % Sodium Chloride Flush 3 Ml Syringe) 3 ml IVFLUSH QSHIFT [facility] Last Admin: 08/29/23 09:20 Dose: 3 ml Documented By: COTEMA Thiamine HCl (Thiamine Hcl 100 Mg Tablet) 100 mg PO DAILY [facility] Last Admin: 08/29/23 09:19 Dose: 100 mg Documented By: COTEMA Trazodone HCl (Trazodone Hcl 50 Mg Tablet) 50 mg PO BEDTIME PRN PRN Reason: insomnia Last Admin: 08/28/23 22:33 Dose: 50 mg Documented By: PATRICIA Labs 08/24/23 04:01 08/25/23 06:14 Labs: Laboratory Results - last 24 hr 08/28/23 08/28/23 08/29/23 16:40 20:06 07:20 POC Glucose 122 H 124 H 143 H Microbiology Microbiology Results: Microbiology 08/24/23 04:19 Blood Culture - Final Blood - Venous No growth after 5 days. 08/24/23 04:01 Blood Culture - Final Blood - Venous No growth after 5 days. Assessment and Plan (1) Acute metabolic encephalopathy: Status: Acute Plan 68 year old female with a PMH of alcohol use disorder with prior withdrawals, COPD, bipolar disorder / schizophrenia, HFpEF, DM and others who presented to [facility] via ambulance for confusion and agitation. She was felt to be intoxicated on arrival, but her drug screen and EtOH levels are negative. Her UA is equivocal, but given her confusion and known history of ESBL, she will be admitted for further care. Acute toxic/metabolic encephalopathy(possible multifactorial -possibly secondary to UTI/SAGAR vs toxic substances) No evidence of sepsis . she is more awake urine culture-might contaminant Urine culture negative, seen by ID less likely UTI: DC IV antibiotics. 2. SAGAR improved with hydration moniter bmp closely 3. DM: controlled. POC sliding scale 4. COPD stable, continue baseline meds 5. History of EtOh abuse and prior withdrawal not evidence of active withdrawal at this time 6. Mood continue baseline meds Generalized weak: Patient was seen by PT recommended STIR. Presumed Full code (pt unable to fully understand at this time and phone call to significant other went unanswered); HCP listed as significant other Magdy Whyte . DVT pptx - lovenox ongoing hospitilsation need: Awaiting ST r placement Quality Stroke Does the patient have a stroke diagnosis?: No VTE Prior VTE?: No VTE Risk Level:: Medical - moderate - high VTE Device Contraindication: N/A - Device Ordered VTE Drug Contraindication: N/A - Med Ordered
[2023-08-29 11:36] LABS: Glucose, Whole Blood 102 mg/dL (60-115)
[2023-08-29 16:00] VITALS: BP 132/76; PULSE 74; RESP 18; TEMP 36.8; O2SAT 95
--- NOTE | 2023-08-29 16:10 | PC.NURSE ---
Patient complaint that IV was hurting her. IV access removed. Attempt to place another IV and pt was refusing. Dr. Patiño made aware. Per Dr. Patiño no need for IV access.
[2023-08-29 16:20] LABS: Glucose, Whole Blood 135 mg/dL (60-115)
[2023-08-29 20:00] VITALS: BP 127/61; PULSE 74; RESP 18; TEMP 36.8; O2SAT 97
[2023-08-29] MEDS: traZODone HCL 50 MG TABLET PO (20:59)
[2023-08-29] MEDS: Aspirin Enteric Coated 81 MG TABLET.DR PO (20:59)
[2023-08-29] MEDS: Pravastatin Sodium 20 MG TABLET PO (20:59)
[2023-08-29] MEDS: Montelukast Sodium 10 MG TABLET PO (21:00)
[2023-08-29 21:08] LABS: Glucose, Whole Blood 138 mg/dL (60-115)
[2023-08-30] VITALS (8 sets, daily range): BP systolic 133–140; BP diastolic 59–78; PULSE 68–83; RESP 16–18; TEMP 36.2–36.8; O2SAT 94–99
[2023-08-30] MEDS: Sennosides 8.6 MG TABLET PO (00:58)
[2023-08-30] MEDS: oxyCODONE HCl Immed Release 5 MG TABLET PO (00:58)
[2023-08-30] MEDS: Albuterol Sulfate 90 MCG 8 GM INHALER 2 PUFF INHALE ×2 (00:59→06:36)
[2023-08-30] MEDS: Omeprazole 40 MG CAPSULE.DR PO (05:16)
[2023-08-30] MEDS: Ipratropium Bromide 0.5 MG/2.5 ML SOLUTION INHALE ×3 (07:27→15:05)
[2023-08-30 07:46] LABS: Glucose, Whole Blood 118 mg/dL (60-115)
[2023-08-30] MEDS: Folic Acid 1 MG TABLET PO (09:50)
[2023-08-30] MEDS: Multivitamin TABLET 1 TAB PO (09:50)
[2023-08-30] MEDS: QUEtiapine Fumarate 50 MG TABLET PO (09:50)
[2023-08-30] MEDS: Thiamine HCL 100 MG TABLET PO (09:50)
[2023-08-30] MEDS: Metoprolol Succinate ER 25 MG TAB.ER.24H PO (09:50)
[2023-08-30] MEDS: Famotidine 20 MG TABLET PO (09:50)
[2023-08-30] MEDS: Enoxaparin Sodium 40 MG/0.4 ML SYRINGE SUBCUT (09:50)
[2023-08-30 11:46] LABS: Glucose, Whole Blood 126 mg/dL (60-115)
--- NOTE | 2023-08-30 13:44 | P.DS_ITS ---
DS: Providers Provider Date of Service: 08/30/23 Date of admission: 08/24/23 09:41 Date of discharge: 08/30/23 Primary care physician: Ryder Monique MD Consults: 08/24/23 07:18 Consult to Infectious Diseases Routine Consulting Provider: CYNDI CARABALLO Reason for consultation: esbl Has provider been notified: Yes 08/25/23 16:49 Consult to Infectious Diseases Routine Consulting Provider: [facility] Infectious Disease Reason for consultation: uti DS: Diagnosis Discharge Diagnosis (1) Acute metabolic encephalopathy: Status: Acute DS: Summary Hospital Course Hospital Course: 68 year old female with a PMH of alcohol use disorder with prior withdrawals, COPD, bipolar disorder / schizophrenia, HFpEF, DM and others who presented to [facility] ED via ambulance for confusion/agitation. Despite the use of a Icelandic speaking conference interpreter, the history is limited as the patient is unable to recall the events that led to her hospitalization. Hence, the history is obtained from the ED physician and nursing documentation. Per ED MD: Patient is 68 years old with history of polysubstance abuse fentanyl marijuana and alcohol with mood disorders, COPD, frequent aggression behavior EMS was called for increased aggression towards her off prior to arrival patient denies any complaints requesting to go back to her but patient obviously is intoxicated. Patient with our hospital for similar presentation multiple times patient afebrile on arrival very anxious denies any urinary complaints does have history of frequent UTI with ESBL infection Per ED RN: Per EMS pt's spouse called and reported that patient was confused, aggressive and combative. when patient arrived she was lethargic but arousable, yelling out. IV placed #20 R-forearm, labs drawn and sent. Pt requesting to go home,. MD at bedside and saw patient. Patient denies hitting her and saying she feels fine. Pt alert to person and place, assisted to the commode. This RN called to discuss plans for discharge. Corrie states that he can no longer take care of patient and he will not come to pick him up. made aware. In the ED, her UA showed: +wbc and esterase, + blood, neg bacteria / nitrites; SCr 1.41 (baseline .7-.9); She was given IVF and IV ertapenam and now will be admitted for further treatment. Hospital course: Patient was admitted for toxic metabolic encephalopathy year(multifactorial -a KI, also use marijuana): Patient was hydrated seems to be improved. Initially thought to be having concern of UTI -patient denies any urinary symptom, urine culture negative, possible has asymptomatic pyuria. Seen by infectious disease antibiotic stop. Patient become to the rehab today. Patient will benefit from less than 30 day stay. Assessment plan coordination time spent 50 minutes. Time Attestation Discharge coordination time: Greater than 30 minutes Quality: Safe Use of Opioids Does Pt have an Active Cancer Diagnosis on the Problem List?: No Quality: Stroke Does the patient have a stroke diagnosis?: No Physical Exam Vital Signs: Vital Signs: Last Vital Signs Temp 97.4 F 08/30/23 07:25 Pulse 68 08/30/23 11:16 Resp 18 08/30/23 11:16 BP 140/60 H 08/30/23 07:25 Pulse Ox 94 08/30/23 07:25 O2 Del Method Room Air 08/30/23 07:25 BMI result Body Mass Index 29.4 Appearance: awake and alert seems at her baseline. cvs: rrr, [id number] , no murmur res: clear to auscultation ,no rhonchii or wheezing abd: no rebound or guarding ,nt, bs present. ext pulses present , no cyanosis. neuro: nonfocal. DS: Data Data Completed and Pending Completed studies during hospitalization [Text1]: Procedures Detoxification Services for Substance Abuse Treatment (03/03/23) Insertion of Infusion Device into Superior Vena Cava, Percutaneous Approach (05/01/21) Labs on day of discharge: Laboratory Results - last 24 hr 08/29/23 08/29/23 08/30/23 16:14 20:52 07:36 POC Glucose 135 H 138 H 118 H 08/30/23 11:27 POC Glucose 126 H Discharge Plan Discharge Anticipated Discharge Date/Time: 08/30/23 13:31 Patient Disposition: Xfer SNF Discharge Diagnosis: Acute toxic metabolic encephalopathy Referrals: Name,MD Ryder [Primary Care Provider] - 1 Week Discharge Medications: Continued multivitamin [Daily-Cony] Tablet 1 tab PO DAILY 30 Days Qty: 30 0RF acetaminophen 650 mg tablet extended release 1 tab PO BID PRN (Reason: pain) 30 Days Qty: 60 0RF baclofen 20 mg Tablet 20 mg PO DAILY PRN (Reason: Back Pain) 30 Days Qty: 30 0RF trazodone 50 mg tablet 1 tab PO BEDTIME PRN (Reason: insomnia) omeprazole 40 mg capsule,delayed release(DR/EC) 1 cap PO DAILY@0630 montelukast 10 mg tablet 1 tab PO BEDTIME pravastatin 20 mg tablet 1 tab PO BEDTIME metoprolol succinate 25 mg tablet extended release 24 hr 1 tab PO DAILY albuterol sulfate [Ventolin HFA] 90 mcg/actuation HFA aerosol inhaler 2 puff INHALATION Q4-6H PRN (Reason: Shortness Of Breath Or Wheezing) thiamine HCl (vitamin B1) 100 mg tablet 1 tab PO DAILY aspirin 81 mg tablet,delayed release (DR/EC) 1 tab PO BEDTIME folic acid 1 mg tablet 1 mg PO DAILY fluticasone propion-salmeterol [Advair Diskus] 250-50 mcg/dose blister with device 1 ea INHALATION BID sennosides [senna] 8.6 mg tablet 8.6 mg PO BID PRN (Reason: constipation) ondansetron HCl 4 mg tablet 4 mg PO BID PRN (Reason: nausea) ferrous sulfate [FeroSul] 325 mg (65 mg iron) tablet 325 mg PO DAILY quetiapine 50 mg tablet 50 mg PO BID Qty: 30 0RF albuterol sulfate 2.5 mg /3 mL (0.083 %) solution for nebulization 2.5 mg inhalation Q4-6H PRN (Reason: Wheezing) famotidine 20 mg tablet 20 mg PO BID acamprosate 333 mg tablet,delayed release (DR/EC) 666 mg PO TID Incruse Ellipta 62.5 mcg/actuation blister with device 1 inh inhalation DAILY Discharge Orders: Discharge Order (Routine); Ordered 08/30/23 Ordered By: Adelaide Patiño Diet: Advance to usual diet Activity on Discharge: As tolerated Stand Alone Forms: Patient Portal Discharge page Care Plan Goals: Patient was admitted for toxic metabolic encephalopathy year(multifactorial -a KI, also use marijuana): Patient was hydrated seems to be improved. Initially thought to be having concern of UTI -patient denies any urinary symptom, urine culture negative, possible has asymptomatic pyuria. Seen by infectious disease antibiotic stop. Patient become to the rehab today. Health Concerns: As above. Plan of Treatment: As above. Assessment: As above.
--- NOTE | 2023-08-30 15:27 | MHC.CM.PN ---
EMR REVIEWED. PER MD ROUNDS PT MEDICALLY CLEARED FOR DC. [facility] HAS OBTAINED AUTH. S TRANSPORT BOOKED FOR 4:30PM. RN, AND FACILITY AWARE. LM FOR HCP WITH DC PLAN AND IMM. COPY LEFT AT BEDSIDE.
[2023-08-30 16:50] LABS: Glucose, Whole Blood 142 mg/dL (60-115)
== END 2023-08-30 20:02 | disposition skilled nursing facility (03) | DRG 682 ==
LOC: HO.ED 08:26 → HO.EDOVER 09:45 → HO.S3 14:41
PROVIDERS: Admitting Provider Family Medicine; Emergency Provider Internal Medicine; PCP Internal Medicine Geriatric Medicine; Visit Provider Internal Medicine
DX: N17.9 Acute kidney failure, unspecified (principal); G92.8 Other toxic encephalopathy; I50.32 Chronic diastolic (congestive) heart failure; F20.9 Schizophrenia, unspecified; F10.10 Alcohol abuse, uncomplicated; F19.10 Other psychoactive substance abuse, uncomplicated; F17.210 Nicotine dependence, cigarettes, uncomplicated; Z71.6 Tobacco abuse counseling; Z87.440 Personal history of urinary (tract) infections; Z23 Encounter for immunization; Z79.51 Long term (current) use of inhaled steroids; Z79.82 Long term (current) use of aspirin; Z79.899 Other long term (current) drug therapy
CPT/HCPCS: 36415; 80048; 80053; 80307; 81001; 82947; 83605; 85027; 87040; 87086; 90686; 93005; 94640; 97110; 97162; 99285; J1650; J2185; J2270

== ENCOUNTER → 2023-08-24 09:41 | Outpatient (BNV) | payer OTHER, SELFPAY | PROVIDERS: Admitting Provider Family Medicine; Emergency Provider Internal Medicine; PCP Internal Medicine Geriatric Medicine; Visit Provider Internal Medicine | DX: N17.9 Acute kidney failure, unspecified (principal); G93.41 Metabolic encephalopathy; F10.90 Alcohol use, unspecified, uncomplicated | CPT/HCPCS: 99222 ==

== ENCOUNTER → 2023-08-24 09:41 | Outpatient (BNV) | payer OTHER, SELFPAY | PROVIDERS: Admitting Provider Family Medicine; Emergency Provider Internal Medicine; Visit Provider Family Medicine | DX: G93.41 Metabolic encephalopathy (principal) | CPT/HCPCS: 99223; 99231; 99232; 99239 ==

== ENCOUNTER 2023-10-20 11:21 | Outpatient (REF) | payer OTHER, SELFPAY ==
[2023-10-20 14:05] LABS: Estimated Average Glucose 103 mg/dL; Hemoglobin A1c % 5.2 % (<6.0)
[2023-10-20 14:22] LABS: Anion Gap 18 (12-20); Blood Urea Nitrogen 21 mg/dL (9-16); Calcium 10.6 mg/dL (8.4-10.2); Carbon Dioxide 20 mmol/L (22-29); Chloride 105 mmol/L (96-108); Estimated Glomerular Filt Rate 43; Glucose Random 103 mg/dL (60-115); Potassium 5.2 mmol/L (3.3-5.1); Sodium 138 mmol/L (135-145)
[2023-10-20 14:47] LABS: Folate 15.4 ng/mL (> or = 4.0); Vitamin B12 426 pg/mL (200-900)
== END 2023-10-20 11:22 | disposition home or self-care (01) ==
LOC: HO.HHCL 11:21
PROVIDERS: Visit Provider Internal Medicine
DX: E11.42 Type 2 diabetes mellitus with diabetic polyneuropathy (principal); R30.0 Dysuria
CPT/HCPCS: 36415; 80048; 82607; 82746; 83036

== ENCOUNTER 2024-01-17 08:40 | Emergency (ER) | payer OTHER, SELFPAY ==
--- NOTE | ~2024-01-17 | XR_ITS ---
EXAMINATION: XR TIBIA AND FIBULA, RIGHT CLINICAL INFORMATION: Chronic pain. Limited range of motion. COMPARISON: None available. TECHNIQUE: AP and lateral views of the right tibia and fibula were obtained. FINDINGS: The bones are intact. No acute fracture. The ankle mortise is well-maintained. There is mild ossific or calcific density near the medial tip of the medial malleolus without associated soft tissue swelling which is likely related to old injury. XR/XR tibia fibula RT 2V IMPRESSION: 1. No acute bony abnormality. 2. Mild ossific or calcific density near the medial tip of the medial malleolus without associated soft tissue swelling which is likely related to old injury.
--- NOTE | ~2024-01-17 | XR_ITS ---
EXAMINATION: XR KNEE, LEFT CLINICAL INFORMATION: Chronic pain. Limited range of motion. COMPARISON: Left knee 11/02/2022 TECHNIQUE: Four views of the left knee. FINDINGS: No fracture or joint effusion. There is tricompartment degenerative joint disease. Marked joint narrowing of the medial joint compartment and patellofemoral joint compartment. Marginal bone spurs of the femur, tibia and patella at all 3 joint compartments. No bone erosion. XR/XR knee LT 4V IMPRESSION: 1. No acute osseous abnormality. 2. Tricompartment marginal osteophytes. 3. Osteoarthritis, marked in the medial joint compartment and patellofemoral joint compartment.
--- NOTE | ~2024-01-17 | XR_ITS ---
EXAMINATION: XR KNEE, RIGHT CLINICAL INFORMATION: Chronic pain COMPARISON: Right knee 03/29/2022, 07/06/2021 TECHNIQUE: Four views of the right knee. FINDINGS: No fracture or joint effusion. There is marked joint space narrowing with marked osteophyte formation and marked subchondral sclerosis. There is moderate joint space narrowing of the lateral joint compartment with subchondral sclerosis and subchondral cysts. There is marked marginal osteophyte formation involving the margins of the tibial plateaus. There is marked narrowing of the patellofemoral joint compartment with large marginal osteophytes. XR/XR knee RT 4V IMPRESSION: Marked osteoarthritis. No fracture or acute bony abnormality.
--- NOTE | ~2024-01-17 | XR_ITS ---
EXAMINATION: XR TIBIA AND FIBULA, LEFT CLINICAL INFORMATION: Chronic pain. Limited range of motion COMPARISON: Left ankle 03/13/2014 TECHNIQUE: AP and lateral views of the left tibia and fibula were obtained. FINDINGS: The bones are intact. No fracture. Degenerative changes are seen in the left knee. Small osteophytes extend off the medial malleolus, unchanged from 03/13/2014. XR/XR tibia fibula LT 2V IMPRESSION: No acute bony abnormality.
--- NOTE | ~2024-01-17 | XR_ITS ---
EXAMINATION: XR BILATERAL HIPS WITH AP PELVIS CLINICAL INFORMATION: Chronic pain. Limited range of motion COMPARISON: Left hip 11/04/2020 TECHNIQUE: AP view of the pelvis and AP and frog lateral views of each hip were obtained. FINDINGS: No fracture. There is marked narrowing of the joint space of the right hip with protrusio deformity. There is slight loss of the normal rounding of the right femoral head with mild bony defects along the cortical surface view due to degenerative change versus avascular necrosis. There is marked narrowing of the joint space of the left hip with protrusio deformity and marked irregularity of the cortical surfaces of the femoral head with total loss of the normal surrounding of the femoral head. This may be due to marked degenerative change versus avascular necrosis. Sacroiliac joints are normal. Mild degenerative change of the pubic symphysis. There is marked degenerative change of the lower lumbar spine with multilevel degenerative disc disease. XR/XR hip BI w PEL1V IMPRESSION: 1. Marked narrowing of the joint space of both hips with protrusion deformity. 2. Slight loss of the normal rounding of the right femoral head with mild bony defects due to degenerative change versus avascular necrosis. 3. Marked abnormality of the left femoral head with complete loss of the rounding of the femoral head and marked bony defects in the cortical surface consistent with avascular necrosis versus marked degenerative change.
--- NOTE | ~2024-01-17 | US_ITS ---
EXAMINATION: US VENOUS ULTRASOUND WITH DOPPLER LOWER EXTREMITY, BILATERAL CLINICAL INFORMATION: Bilateral leg/calf pain COMPARISON: Venous ultrasound bilateral lower extremities 07/26/2022-no DVT Venous ultrasound of bilateral lower extremities 11/12/2021-no DVT Venous ultrasound of left lower extremity 02/08/2022-no DVT TECHNIQUE: Ultrasound of the deep veins is performed from the hip to the calf with compression sonography and color and pulse Doppler assessment. Spectral analysis with color-flow imaging is performed. FINDINGS: RIGHT: There is normal venous compression and respiratory variation. The visualized common femoral vein, superficial femoral vein, profunda femoral vein, popliteal vein, and the trifurcation region shows no evidence of deep venous thrombosis. LEFT: There is normal venous compression and respiratory variation and augmented flow. The visualized common femoral vein, superficial femoral vein, profunda femoral vein, popliteal vein, and the trifurcation region shows no evidence of deep venous thrombosis. US/US venous duplex LE BI IMPRESSION: No DVT demonstrated in the bilateral lower extremities.
[2024-01-17 08:54] VITALS: BP 114/63; BP 131/70; PULSE 76; PULSE 86; RESP 18; TEMP 37; O2SAT 100; O2SAT 94; BMI 37.2
--- NOTE | 2024-01-17 12:03 | ED.EXTPRO ---
HPI - Extremity Problem General Chief complaint: Extremity Problem Stated complaint: LOWER LEG PAIN PER EMS Time Seen by Provider: 01/17/24 10:24 Source: patient Mode of arrival: ambulatory Limitations: no limitations History of Present Illness HPI Narrative: 68-year-old female with past medical history of COPD, diabetes, metabolic encephalopathy, presents to the ED for chronic bilateral leg pain for the past 2 weeks. patient states history of arthritis and has severe pain in her knees, hips, and legs. Patient denies any recent trauma. Patient denies any swelling, erythema, calf pain, bluish discoloration, or paralysis. Patient states no chest pain or shortness of breath. Patient denies any leg or foot wounds. Patient usually ambulates with a walker and wheelchair Related Data Home Medications ?Medication ?Instructions ?Recorded ?Confirmed albuterol sulfate 90 mcg/actuation 2 puff inhalation Q4-6H PRN 11/26/22 01/18/24 aerosol inhaler (Ventolin HFA) Shortness Of Breath Or Wheezing aspirin 81 mg tablet,delayed 1 tab PO BEDTIME 11/26/22 01/18/24 release folic acid 1 mg tablet 1 mg PO DAILY 11/26/22 01/18/24 metoprolol succinate 25 mg 1 tab PO DAILY 11/26/22 01/18/24 tablet,extended release 24 hr montelukast 10 mg tablet 1 tab PO BEDTIME 11/26/22 01/18/24 omeprazole 40 mg capsule,delayed 1 cap PO DAILY@0630 11/26/22 01/18/24 release pravastatin 20 mg tablet 1 tab PO BEDTIME 11/26/22 01/18/24 thiamine HCl (vitamin B1) 100 mg 1 tab PO DAILY 11/26/22 01/18/24 tablet trazodone 50 mg tablet 1 tab PO BEDTIME PRN insomnia 11/26/22 01/18/24 ferrous sulfate 325 mg (65 mg 325 mg PO DAILY 01/31/23 01/18/24 iron) tablet (FeroSul) fluticasone 250 mcg-salmeterol 50 1 ea inhalation BID 01/31/23 01/18/24 mcg/dose blistr powdr for inhalation (Advair Diskus) ondansetron HCl 4 mg tablet 4 mg PO BID PRN nausea 01/31/23 01/18/24 sennosides 8.6 mg tablet (senna) 8.6 mg PO BID PRN constipation 01/31/23 01/18/24 acamprosate 333 mg tablet,delayed 666 mg PO TID 05/25/23 01/18/24 release albuterol sulfate 2.5 mg/3 mL 2.5 mg inhalation Q4-6H PRN 05/25/23 01/18/24 (0.083 %) solution for nebulization Wheezing famotidine 20 mg tablet 20 mg PO BID 05/25/23 01/18/24 umeclidinium 62.5 mcg/actuation 1 inh inhalation DAILY 05/25/23 01/18/24 blister powder for inhalation (Incruse Ellipta) quetiapine 50 mg tablet 50 mg PO TID 01/18/24 Previous Rx's ?Medication ?Instructions ?Recorded acetaminophen 650 mg 1 tab PO BID PRN pain 30 days #60 04/29/22 tablet,extended release tabs baclofen 20 mg tablet 20 mg PO DAILY PRN Back Pain 30 04/29/22 days #30 tabs multivitamin (Daily-Cony tablet) 1 tab PO DAILY 30 days #30 tabs 04/29/22 oxycodone 5 mg capsule 5 mg PO Q8H PRN pain 3 days #9 caps 01/17/24 Allergies Allergy/AdvReac Type Severity Reaction Status Date / Time fluticasone Allergy Unknown Verified 01/18/24 07:26 [From Advair Diskus] salmeterol Allergy Unknown Verified 01/18/24 07:26 [From Advair Diskus] paroxetine [From Paxil] AdvReac Intermediate Nausea and Verified 01/18/24 07:26 Vomiting Review of Systems Review of Systems: bilateral leg pain. bilateral knee pain. Patient now saying bilateral hip pain Yes all other systems are reviewed and are negative [facility] Past Medical History Medical History COPD (chronic obstructive pulmonary disease) Effusion of shoulder joint, left Mass of joint of left shoulder Cannabis use disorder, moderate, dependence Dementia Korsakoff disease Chronic hyponatremia Schizophrenia Congestive heart failure Bipolar 1 disorder Osteoarthritis COPD (chronic obstructive pulmonary disease) Hypertension Diabetes Coronary artery disease Sleep apnea Alcohol use disorder Surgical History Hx of appendectomy Family History Family History Sister Breast cancer, Onset Age: 40 Sister Breast cancer, Onset Age: 50 Social History Social History Household Members: Spouse Household Members Other:: 2 Housing: Unknown / Unable to assess Do you presently have visiting nurse or other home services: Yes Alcohol intake: never Comment: 1:1 at bedside Patient Tobacco Use Status: Current everyday Tobacco user Tobacco use type: Cigarette Cigarette Packs Per Day: 0.5 Cigarettes Per Day: 10.0 Years Smoked: 53 Smoked in Last 30 Days: No e-Cigarette/Vaping Use: Never Used Second Hand Smoke Exposure: No Substance Use Type: Marijuana Advance Directives: Yes Advance Directives on File: Yes Advance Directives Date on File: 10/10/20 Do you have a plan to hurt others: No Plan service: No Current occupational status: unemployed, disabled and other Sexual orientation: Straight/Heterosexual Physical Exam Vital Signs: Vital Signs: Last Vital Signs Temp 97.6 F 01/17/24 18:19 Pulse 77 01/17/24 18:19 Resp 16 01/17/24 18:19 BP 144/80 H 01/17/24 18:19 Pulse Ox 97 01/17/24 18:19 O2 Del Method Room Air 01/17/24 18:19 BMI result Body Mass Index 37.2 Const: General: cooperative, healthy appearing, comfortable, no acute distress, well developed, alert, awake and Physically active Orientation/consciousness: oriented to person, oriented to place, oriented to time and patient oriented x3 HEENT: Head: Yes normal to inspection, Yes No palpable skull fracture present, Yes normocephalic, Yes atraumatic and No abrasion Eyes: General: appearance normal, both eyes and all related structures Neck: Neck: Yes normal visual inspection, Yes full ROM, Yes no lymphadenopathy, Yes no meningeal signs, Yes trachea midline, Yes supple, No anterior neck swelling and No tender Chest: Chest palpation & inspection: normal inspection of the chest and normal palpation of entire chest wall Resp: Effort & Inspection: normal respiratory effort and able to speak in complete sentences Auscultation: clear to auscultation bilaterally Cardio: Jugular venous distension: no JVD Heart sounds: S1 normal heart sound present and S2 normal heart sound present GI: Inspection: Yes normal to inspection Palpation (GI): Soft to palpation, not firm, nontender, no guarding and not rigid : General: No CVA tenderness and Yes no CVA tenderness Back/Spine/Pelvis: Back: no CVA tenderness, No CVA tenderness and No back tenderness Skin: General skin exam: no rashes or lesions noted and elasticity normal Neuro: General: oriented to person, oriented to place, oriented to time, patient oriented x3, tone normal, moves all extremities, Normal light touch and pain sensation, no meningeal signs, no focal motor deficits, CN's II-XI intact bilaterally and normal sensation to monofilament Extrem: General: Yes normal to inspection and Yes full ROM Upper/lower leg/hip images: 1. positive for tenderness on palpation. Negative for erythema, ecchymosis, deformity, crepitus, hotness, or coldness. Leg is normal temperature. Motor/neuro /vascular exam of lower extremity intact. Complete range of motion of lower extremity. Patient has palpable pulses 2. positive for tenderness on palpation. Negative for erythema, ecchymosis, deformity, crepitus, hotness, or coldness. Leg is normal temperature. Motor/neuro /vascular exam of lower extremity intact. Complete range of motion of lower extremity. Patient has palpable pulses 3. positive for tenderness on palpation. Negative for erythema, ecchymosis, deformity, crepitus, hotness, or coldness. Leg is normal temperature. Motor/neuro /vascular exam of lower extremity intact. Complete range of motion of lower extremity. Patient has palpable pulses 4. positive for tenderness on palpation. Negative for erythema, ecchymosis, deformity, crepitus, hotness, or coldness. Leg is normal temperature. Motor/neuro /vascular exam of lower extremity intact. Complete range of motion of lower extremity. Patient has palpable pulses 5. positive for tenderness on palpation. Negative for crepitus, deformity, ecchymosis, erythema, rash, hotness, or coldness. Normal temperature. Palpable pulses. Motor/neuro/ vascular exam intact 6. positive for tenderness on palpation. Negative for crepitus, deformity, ecchymosis, erythema, rash, hotness, or coldness. Normal temperature. Palpable pulses. Motor/neuro/ vascular exam intact Psych: Appearance: grossly normal, well kempt and not disheveled Medications Administered Discontinued Medications Generic Name Dose Route Start Last Admin Trade Name Alexandrea PRN Reason Stop Dose Admin Morphine Sulfate 2 mg 01/17/24 12:14 01/17/24 13:17 Morphine Sulfate 2 Mg/Ml Cartridge IM 01/17/24 12:15 2 mg ONCE ONE Administration Protocol Medical Decision Making Medical Decision Making MDM Narrative: 68-year-old female presents to ED for bilateral leg pain without any trauma. Physical exam shows bilateral motor/neuro /vascular exam of extremity intact. Patient has no cardiopulmonary symptoms. Will do bilateral lower extremity x-rays. Will do ultrasound to rule out DVT. Lower extremity positive for positive pulses and normal temperature. not suspecting arterial occlusion. 5:15pm: patient's x-ray of legs and knee shows osteoarthritis. Bilateral hip x-ray shows avascular necrosis versus arthritis. Ultrasound negative for DVT. Once again not suspecting arterial occlusion. 5:31pm: Spoke with Dr. Jenkins of vascular surgery about the case. Agree most likely patient is not having an arterial occlusion and patient can follow-up outpatient for possible ankle brachial index versus arterial duplex study to be evaluated for peripheral vascular disease. billing and quality technician Shanika oneil ordered outpatient arterial duplex ultrasound for tomorrow morning at 10:30am. Patient made aware and states she will come to the appointment for arterial duplex in the morning and will follow-up with vascular surgeon Dr. Jenkins. Re-evaluation patient's states pain resolved after morphine. Not suspecting compartment syndrome. Not suspecting an arterial occlusion. patient lower extremities normal temperature with femoral popliteal and foot pulses. Negative for wounds or ulcers of the foot. Bilateral lower extremity is not cold. not suspect CHF or PE. Negative for pitting edema. Not suspecting rhabdomyolysis. patient is a heavy smoker was explained and informed about claudication. Patient diabetic. ANother differential could be diabetic peripheral neuropathy. Patient would like to be discharged and does not want physical therapy or case managment. patient states walking at home with walker fine. Differential Diagnosis Differential Diagnoses: The differential diagnosis associated with the presentation includes ( fracture, arthritis, DVT, peripheral neuropathy) Admission/Observation Consideration of admission/observation: Escalation of care including admission/observation considered Consult Healthcare Provider Management of the patient was discussed with: Second Miller (Dr. Jenkins Vascular Surgeon) Independent Interpretation I performed an independent interpretation of an: Plain X-Ray Radiology Impression Discussion of test interpretation with radiology: I have reviewed the radiologist's reading. Independent Historian Clinical information obtained from an independent historian. History obtained from or confirmed by: Other (patient) External Record Review External record reviewed: Other (prior visits) Prescription Management I considered prescription management with: Pain Medication Discharge Plan Discharge Clinical Impression: Bilateral leg pain, Avascular necrosis of bones of both hips, Peripheral neuropathy Patient Disposition: Home, Self-Care Instructions: Peripheral Neuropathy (ED), Leg Pain (ED) Additional Instructions: x-ray of hips shows avascular necrosis with osteoarthritis. Bilateral knee x-ray shows osteoarthritis. Leg x-ray shows osteoarthritis. Ultrasound negative for DVT. Presently not suspecting emergent blood clot in your arteries of your legs. Due to history of smoking which can lead to claudication and peripheral vascular disease you have a scheduled outpatient arterial ultrasound appointment back at this hospital for 10:30am. if he can not make the appointment please call [phone]. also I spoke with Dr. Jenkins our vascular surgeon who is agreeable to see you for follow-up. Please call his office. Also recommend calling our orthopedic surgeon. Return to the ED immediately for bilateral lower extremity redness, swelling, bluish black discoloration, severe pain, calf pain, fever, chills, chest pain, shortness of breath, paralysis, or any other concerning symptoms. Prescriptions: New oxycodone 5 mg capsule 5 mg PO Q8H PRN (Reason: pain) 3 Days Qty: 9 0RF Rx Instructions: Partial Fill upon patient request. No Action multivitamin [Daily-Cony] Tablet 1 tab PO DAILY 30 Days Qty: 30 0RF acetaminophen 650 mg tablet extended release 1 tab PO BID PRN (Reason: pain) 30 Days Qty: 60 0RF baclofen 20 mg Tablet 20 mg PO DAILY PRN (Reason: Back Pain) 30 Days Qty: 30 0RF trazodone 50 mg tablet 1 tab PO BEDTIME PRN (Reason: insomnia) omeprazole 40 mg capsule,delayed release(DR/EC) 1 cap PO DAILY@0630 montelukast 10 mg tablet 1 tab PO BEDTIME pravastatin 20 mg tablet 1 tab PO BEDTIME metoprolol succinate 25 mg tablet extended release 24 hr 1 tab PO DAILY albuterol sulfate [Ventolin HFA] 90 mcg/actuation HFA aerosol inhaler 2 puff INHALATION Q4-6H PRN (Reason: Shortness Of Breath Or Wheezing) thiamine HCl (vitamin B1) 100 mg tablet 1 tab PO DAILY aspirin 81 mg tablet,delayed release (DR/EC) 1 tab PO BEDTIME folic acid 1 mg tablet 1 mg PO DAILY fluticasone propion-salmeterol [Advair Diskus] 250-50 mcg/dose blister with device 1 ea INHALATION BID sennosides [senna] 8.6 mg tablet 8.6 mg PO BID PRN (Reason: constipation) ondansetron HCl 4 mg tablet 4 mg PO BID PRN (Reason: nausea) ferrous sulfate [FeroSul] 325 mg (65 mg iron) tablet 325 mg PO DAILY albuterol sulfate 2.5 mg /3 mL (0.083 %) solution for nebulization 2.5 mg inhalation Q4-6H PRN (Reason: Wheezing) famotidine 20 mg tablet 20 mg PO BID acamprosate 333 mg tablet,delayed release (DR/EC) 666 mg PO TID Incruse Ellipta 62.5 mcg/actuation blister with device 1 inh inhalation DAILY quetiapine 50 mg tablet 50 mg PO TID Referrals: [facility] Orthopedic Surgeons [Provider Group] ( bilateral femoral avascular necrosis and osteoarthritis of hips knees and legs) [facility] Vascular Services [Provider Group] ( Possible peripheral vascular disease. Has scheduled arterial duplex ultrasound) Interventions: ED Discharge Assessment Last Done: 01/17/24 18:19 Discharge Date/Time: 01/17/24 18:20 Print Language: Prydeinig
[2024-01-17 13:15] VITALS: BP 137/73; PULSE 69; RESP 18; TEMP 37.3; O2SAT 97
[2024-01-17 13:17] VITALS: RESP 18
[2024-01-17] MEDS: Morphine Sulfate 2 MG/ML CARTRIDGE IM (13:17)
[2024-01-17 14:00] VITALS: RESP 16
[2024-01-17 16:51] VITALS: BP 118/66; PULSE 76; RESP 16; TEMP 37.1; O2SAT 96
[2024-01-17 18:19] VITALS: BP 144/80; PULSE 77; RESP 16; TEMP 36.4; O2SAT 97
== END 2024-01-17 18:20 | disposition home or self-care (01) ==
PROVIDERS: Emergency Provider Internal Medicine; PCP Internal Medicine Geriatric Medicine
DX: M87.9 Osteonecrosis, unspecified (principal); G62.9 Polyneuropathy, unspecified; M79.604 Pain in right leg; M79.605 Pain in left leg; I10 Essential (primary) hypertension; E11.9 Type 2 diabetes mellitus without complications; J44.9 Chronic obstructive pulmonary disease, unspecified; Z79.82 Long term (current) use of aspirin; Z79.899 Other long term (current) drug therapy
CPT/HCPCS: 73521; 73564; 73590; 93970; 96372; 99284; J2270

== ENCOUNTER 2024-01-18 07:14 | Emergency (ER) | payer OTHER, SELFPAY ==
[2024-01-18] VITALS (7 sets, daily range): BP systolic 136–151; BP diastolic 50–78; PULSE 70–97; RESP 14–23; TEMP 36.5–36.8; O2SAT 98–100; BMI 26.8
--- NOTE | 2024-01-18 07:28 | ED.EXTPRO ---
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 She was due for study at 1030am. She notes she didn't understand when to come back so she called the ambulance for her appointment to bring her back this AM. No new complaints. MD Complaint: extremity pain Onset (ago): week(s) Pain Consistency: intermittent Location: left, right and lower extremity Quality: aching Radiation: none Relieving factors: rest Exacerbating factors: weight bearing and walking Associated symptoms: denies other symptoms Related Data Home Medications ?Medication ?Instructions ?Recorded ?Confirmed albuterol sulfate 90 mcg/actuation 2 puff inhalation Q4-6H PRN 11/26/22 08/24/23 aerosol inhaler (Ventolin HFA) Shortness Of Breath Or Wheezing aspirin 81 mg tablet,delayed 1 tab PO BEDTIME 11/26/22 08/24/23 release folic acid 1 mg tablet 1 mg PO DAILY 11/26/22 08/24/23 metoprolol succinate 25 mg 1 tab PO DAILY 11/26/22 08/24/23 tablet,extended release 24 hr montelukast 10 mg tablet 1 tab PO BEDTIME 11/26/22 08/24/23 omeprazole 40 mg capsule,delayed 1 cap PO DAILY@0630 11/26/22 08/24/23 release pravastatin 20 mg tablet 1 tab PO BEDTIME 11/26/22 08/24/23 thiamine HCl (vitamin B1) 100 mg 1 tab PO DAILY 11/26/22 08/24/23 tablet trazodone 50 mg tablet 1 tab PO BEDTIME PRN insomnia 11/26/22 08/24/23 ferrous sulfate 325 mg (65 mg 325 mg PO DAILY 01/31/23 08/24/23 iron) tablet (FeroSul) fluticasone 250 mcg-salmeterol 50 1 ea inhalation BID 01/31/23 08/24/23 mcg/dose blistr powdr for inhalation (Advair Diskus) ondansetron HCl 4 mg tablet 4 mg PO BID PRN nausea 01/31/23 08/24/23 sennosides 8.6 mg tablet (senna) 8.6 mg PO BID PRN constipation 01/31/23 08/24/23 acamprosate 333 mg tablet,delayed 666 mg PO TID 05/25/23 08/24/23 release albuterol sulfate 2.5 mg/3 mL 2.5 mg inhalation Q4-6H PRN 05/25/23 08/24/23 (0.083 %) solution for nebulization Wheezing famotidine 20 mg tablet 20 mg PO BID 05/25/23 08/24/23 umeclidinium 62.5 mcg/actuation 1 inh inhalation DAILY 05/25/23 08/24/23 blister powder for inhalation (Incruse Ellipta) Previous Rx's ?Medication ?Instructions ?Recorded acetaminophen 650 mg 1 tab PO BID PRN pain 30 days #60 04/29/22 tablet,extended release tabs baclofen 20 mg tablet 20 mg PO DAILY PRN Back Pain 30 04/29/22 days #30 tabs multivitamin (Daily-Cony tablet) 1 tab PO DAILY 30 days #30 tabs 04/29/22 quetiapine 50 mg tablet 50 mg PO BID #30 tabs 07/07/23 oxycodone 5 mg capsule 5 mg PO Q8H PRN pain 3 days #9 caps 01/17/24 Allergies Allergy/AdvReac Type Severity Reaction Status Date / Time fluticasone Allergy Unknown Verified 01/18/24 07:26 [From Advair Diskus] salmeterol Allergy Unknown Verified 01/18/24 07:26 [From Advair Diskus] paroxetine [From Paxil] AdvReac Intermediate Nausea and Verified 01/18/24 07:26 Vomiting Review of Systems Review of Systems: Constitutional : No Fever, No Chills ENT/Mouth : No Ear Pain, No Hoarseness, No sore throat Eyes: No Eye Pain, No Swelling, No Redness, No Foreign Body Cardiovascular : No Chest Pain, No SOB Respiratory : No Cough, No Dyspnea Gastrointestinal : No Nausea, No Vomiting, No Diarrhea, No abdominal Pain Genitourinary : No Dysuria, No Hematuria Musculoskeletal : positive joint pain, No Myalgias, No Joint Swelling Skin : No Skin lacerations, No rash Neuro : No Weakness, No Numbness, No Loss of Consciousness, No Dizziness, No Headache Psych : No Anxiety/Panic, No Depression All other systems reviewed and are negative [facility] Past Medical History Attestation statement: The following information was validated with the patient. Source: old records reviewed Medical History COPD (chronic obstructive pulmonary disease) Effusion of shoulder joint, left Mass of joint of left shoulder Cannabis use disorder, moderate, dependence Dementia Korsakoff disease Chronic hyponatremia Schizophrenia Congestive heart failure Bipolar 1 disorder Osteoarthritis COPD (chronic obstructive pulmonary disease) Hypertension Diabetes Coronary artery disease Sleep apnea Alcohol use disorder Surgical History Hx of appendectomy Family History Family History Sister Breast cancer, Onset Age: 40 Sister Breast cancer, Onset Age: 50 Social History Social History Household Members: Spouse Household Members Other:: 2 Housing: Unknown / Unable to assess Do you presently have visiting nurse or other home services: Yes Alcohol intake: never Comment: 1:1 at bedside Patient Tobacco Use Status: Current everyday Tobacco user Tobacco use type: Cigarette Cigarette Packs Per Day: 0.5 Cigarettes Per Day: 10.0 Years Smoked: 53 e-Cigarette/Vaping Use: Never Used Second Hand Smoke Exposure: No Substance Use Type: Marijuana Advance Directives: Yes Advance Directives on File: Yes Advance Directives Date on File: 10/10/20 service: No Current occupational status: unemployed, disabled and other Sexual orientation: Straight/Heterosexual Physical Exam Vital Signs: Vital Signs: Last Vital Signs Temp 98.2 F 01/18/24 07:23 Pulse 89 01/18/24 07:23 Resp 16 01/18/24 07:23 BP 139/72 01/18/24 07:23 Pulse Ox 100 01/18/24 07:23 O2 Del Method Nasal Cannula 01/18/24 07:23 Oxygen Flow Rate 2 01/18/24 07:23 BMI result Body Mass Index 26.8 Appearance: Alert. Oriented X3 but seems a little confused which is her baseline. No acute distress. Smiling Eyes: Pupils equal, round and reactive to light. ENT: Pharynx normal. Neck: Normal inspection. Neck supple. CVS: Normal heart rate and rhythm. Pulses normal. Respiratory: No respiratory distress. Breath sounds normal. Abdomen: Soft and nontender. Skin: Skin warm and dry. Normal skin color. Normal skin turgor. Extremities: No lower extremity edema. No calf ttp both feet are warm to touch no rash noted 2+ DP pulse bilaterally, 1+ PT pulses Neuro: Oriented X 3. No motor deficit. No sensory deficit. Medical Decision Making Medical Decision Making [facility] Narrative: 68 yo female with PMH of schizophrenia, korsakoff, SAGAR, COPD here with dx of avascular necrosis yesterday but also planned for bilateral arterial duplex she really didn't understand the discharge likely due to her korsakoff and mental health issues but she also does not have transportation. Will consult information technology advisor as well as ask if the hospital van can take her home. She has pulses has no signs of infection. She is smiling and watching TV. Differential Diagnosis Differential Diagnoses: The differential diagnosis associated with the presentation includes avascular necrosis Admission/Observation Consideration of admission/observation: Escalation of care including admission/observation considered patient to be discharged to vascular radiology suite for her appointment at 1030 they can provide hospital transportation home partner called states she cannot come home and he cannot care for her will place in physician observation at 853am. PT and CM aware. Lab Data [facility] Lab Attestation statement: I reviewed the patient's lab results. Independent Interpretation I performed an independent interpretation of an: Plain X-Ray Radiology Impression Discussion of test interpretation with radiology: I have reviewed the radiologist's reading. Independent Historian Clinical information obtained from an independent historian. History obtained from or confirmed by: EMS External Record Review External record reviewed: Inpatient record Social Determinants Patient?s care significantly limited by Social Determinants of Health including: Problems related to primary support group Discharge Plan Discharge Clinical Impression: Bilateral leg pain Patient Disposition: Still a Patient Instructions: Leg Pain (ED) Prescriptions: No Action multivitamin [Daily-Cony] Tablet 1 tab PO DAILY 30 Days Qty: 30 0RF acetaminophen 650 mg tablet extended release 1 tab PO BID PRN (Reason: pain) 30 Days Qty: 60 0RF baclofen 20 mg Tablet 20 mg PO DAILY PRN (Reason: Back Pain) 30 Days Qty: 30 0RF trazodone 50 mg tablet 1 tab PO BEDTIME PRN (Reason: insomnia) omeprazole 40 mg capsule,delayed release(DR/EC) 1 cap PO DAILY@0630 montelukast 10 mg tablet 1 tab PO BEDTIME pravastatin 20 mg tablet 1 tab PO BEDTIME metoprolol succinate 25 mg tablet extended release 24 hr 1 tab PO DAILY albuterol sulfate [Ventolin HFA] 90 mcg/actuation HFA aerosol inhaler 2 puff INHALATION Q4-6H PRN (Reason: Shortness Of Breath Or Wheezing) thiamine HCl (vitamin B1) 100 mg tablet 1 tab PO DAILY aspirin 81 mg tablet,delayed release (DR/EC) 1 tab PO BEDTIME folic acid 1 mg tablet 1 mg PO DAILY fluticasone propion-salmeterol [Advair Diskus] 250-50 mcg/dose blister with device 1 ea INHALATION BID sennosides [senna] 8.6 mg tablet 8.6 mg PO BID PRN (Reason: constipation) ondansetron HCl 4 mg tablet 4 mg PO BID PRN (Reason: nausea) ferrous sulfate [FeroSul] 325 mg (65 mg iron) tablet 325 mg PO DAILY quetiapine 50 mg tablet 50 mg PO BID Qty: 30 0RF oxycodone 5 mg capsule 5 mg PO Q8H PRN (Reason: pain) 3 Days Qty: 9 0RF Rx Instructions: Partial Fill upon patient request. albuterol sulfate 2.5 mg /3 mL (0.083 %) solution for nebulization 2.5 mg inhalation Q4-6H PRN (Reason: Wheezing) famotidine 20 mg tablet 20 mg PO BID acamprosate 333 mg tablet,delayed release (DR/EC) 666 mg PO TID Incruse Ellipta 62.5 mcg/actuation blister with device 1 inh inhalation DAILY Print Language: Surinamese
--- NOTE | 2024-01-18 09:01 | MHC.CM.ED ---
Received telephone call from patient's sig other/HCP, Juanjo. He does not feel patient can safely return home. He would like patient to go to [facility]. Patient and sig other are very well known to due to freq ER visits and Juanjo stating he is unable to care for patient. Patient will be placed in assisted care and then have patient d/c to her residence. Patient states she doesn't listen to me. T/W reiterated that patient has significant dementia and has severe memory issues. Juanjo verbalized understanding and restated she can't come home. Dr Levy made aware. Continue to monitor for d/c needs.
[2024-01-18 09:55] LABS: Influenza A PCR NEGATIVE (Negative); Influenza B PCR NEGATIVE (Negative); Resp Syncy Virus RNA Qual PCR NEGATIVE (Negative); SARS COV2 PCR INHOUSE NEGATIVE (Negative)
--- NOTE | 2024-01-18 11:45 | PC.NURSE ---
this RN resumed care of pt at this time. vss and up to date. pt remains on 2L via NC which is the pt's baseline d/t hx of COPD. no sob/wob noted. respirations even and unlabored. pt has no complaints. denies pain at this moment. pt still remains in ED as PT/CM - pt waiting for placement at this time as pt's states he is no longer to care for her at home. disposition pending. plan of care ongoing. call jones placed within reach.
--- NOTE | 2024-01-18 12:54 | MHC.CM.ED ---
Addendum entered by Risa Lozano 01/18/24 15:39: No bed offers at this time. Referral broadcasted to all facilities within 50 miles of patient's home to all facilities that are contracted with [facility]. 20 Referrals made. [facility] PASRR level 2 obtained. Original Note: Patient remains in ER. 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 Will need [facility] PASRR Level 2. T/W already submitted for this. Clinical updates sent to facilities still reviewing: [facility], [facility], [facility] and [facility]. Continue to monitor for d/c needs.
[2024-01-18 12:57] LABS: Glucose, Whole Blood 98 mg/dL (60-115)
[2024-01-18] MEDS: Acamprosate Calcium 333 MG TABLET.DR 666 MG PO ×2 (15:56→21:28)
--- NOTE | 2024-01-18 15:57 | PC.NURSE ---
pt continues to rest comfortably in no apparent distress. attempted to reposition pt to promote comfort but she declined. medication administered per provider order. medications taken whole w/ water w/o difficulty. pt provided w/ apple juice, crackers and pudding upon request. no sob/wob noted. respirations remain even and unlabored. call jones placed within reach.
[2024-01-18] MEDS: Albuterol Sulfate (0.083%) 2.5 MG/3 ML VIAL.NEB INHALE (16:36)
--- NOTE | 2024-01-18 16:40 | PC.NURSE ---
pt requesting breathing treatment via RT at this time. RT called/now bedside.
--- NOTE | 2024-01-18 19:49 | PC.NURSE ---
This RN assumed pt care @ 1900. Pt ca&ox4, no signs of distress. Pt reporting bed wet with urine. Bed change and timothy care complete. Pt refusing purewick and also refusing to ring call jones to be assisted to bedside commode. Call jones placed within reach. Plan of care ongoing.
[2024-01-18] MEDS: traZODone HCL 50 MG TABLET PO (21:27)
[2024-01-18] MEDS: Montelukast Sodium 10 MG TABLET PO (21:28)
[2024-01-18] MEDS: Famotidine 20 MG TABLET PO (21:28)
[2024-01-18] MEDS: Pravastatin Sodium 20 MG TABLET PO (21:28)
[2024-01-18] MEDS: Aspirin Enteric Coated 81 MG TABLET.DR PO (21:28)
--- NOTE | 2024-01-18 21:34 | PC.NURSE ---
Pt medicated per nov. Pt requested and given drink and food. Plan of care ongoing.
--- NOTE | 2024-01-18 21:44 | MHC.CM.ED ---
Addendum entered by Sonam Solis 01/19/24 16:56: Juanjo returned telephone call. Notified of patient transfer to facility tomorrow morning at 9am. Addendum entered by Sonam Solis 01/19/24 16:31: BLS booked for 01/09 at 9am. Pt will go to [facility] in [facility]. Message left with S.O/HCP Juanjo Montelongo ([phone]. Med Nec/Face Sheet/ED worksheet with assembler unit. Original Note: [facility] reviewing. Waiting on [facility] and [facility] to respond. CM continues to follow for discharge needs.
--- NOTE | 2024-01-19 01:33 | PC.NURSE ---
Pt yelling out in the hallway bed Im wet Complete bed and gown change, timothy care done. Pt requested and given 2 blankets. Plan of care ongoing.
[2024-01-19] MEDS: Baclofen 20 MG TABLET PO (05:13)
--- NOTE | 2024-01-19 05:14 | PC.NURSE ---
Pt requesting pain meds. Pt medicated per mar. Plan of care ongoing.
[2024-01-19 05:34] VITALS: BP 108/66; PULSE 67; RESP 18; O2SAT 95
[2024-01-19] MEDS: Omeprazole 40 MG CAPSULE.DR PO (06:29)
--- NOTE | 2024-01-19 06:31 | PC.NURSE ---
Pt medicated per nov. Plan of care ongoing.
[2024-01-19 07:06] VITALS: BP 150/71; PULSE 69; RESP 16; TEMP 36.9; O2SAT 92
[2024-01-19 07:53] VITALS: PULSE 80; RESP 18; O2SAT 99
[2024-01-19] MEDS: Fluticasone/Vilanterol 100/25 BLST.W.DEV 1 PUFF INHALE (07:53)
[2024-01-19] MEDS: Tiotropium Bromide 2.5 mcg 1 PUFF/2.5 MCG MIST.INHAL 2 PUFF INHALE (07:53)
[2024-01-19] MEDS: Folic Acid 1 MG TABLET PO (09:36)
[2024-01-19] MEDS: Ferrous Sulfate 324 MG TABLET.DR PO (09:36)
[2024-01-19] MEDS: Multivitamin TABLET 1 TAB PO (09:36)
[2024-01-19] MEDS: Metoprolol Succinate ER 25 MG TAB.ER.24H PO (09:36)
[2024-01-19] MEDS: Famotidine 20 MG TABLET PO ×2 (09:36→23:10)
[2024-01-19] MEDS: Thiamine HCL 100 MG TABLET PO (09:36)
[2024-01-19] MEDS: Acamprosate Calcium 333 MG TABLET.DR 666 MG PO ×3 (09:41→23:56)
--- NOTE | 2024-01-19 10:44 | PC.NURSE ---
patient resting in stretcher, alert and awake, patient medicated per MAR, VSS, skin dry and intact. patient is wearing NC for comfort.
--- NOTE | 2024-01-19 12:31 | MHC.CM.ED ---
Addendum entered by Risa Lozano 01/19/24 16:34: [facility] has obtained insurance auth. Patient will transfer to facility via [facility] 01/19 at 9am. Original Note: Patient remains in ER. No bed offers at this time. Referral broadcasted throughout entire [facility] to all facilities contracted with [facility]. [facility] in [place], [facility] in [place], [facility], [facility] are able to offer a bed at this time. These options were discussed with Juanjo via telephone at [phone]. [facility] is the closest facility. Juanjo accepts. [facility] has been asked to obtain insurance auth. Continue to monitor for d/c needs.
[2024-01-19] MEDS: Acetaminophen 325 MG TABLET 975 MG PO (15:28)
[2024-01-19 15:59] VITALS: BP 151/73; PULSE 64; RESP 16; TEMP 36.5; O2SAT 96
--- NOTE | 2024-01-19 16:07 | MHC.EDTECH ---
THIS PCT ASSUMED CARE OF PATIENT AT 1500 ,VITALS TAKEN ,PT CLEAN AND DRY WATCHING TELEVISION IN BED .
--- NOTE | 2024-01-19 16:26 | MHC.EDTECH ---
PATIENT BELONGING LIST DONE AND BLOOD SUGAR CHECK .
[2024-01-19 17:09] LABS: Glucose, Whole Blood 105 mg/dL (60-115)
--- NOTE | 2024-01-19 17:46 | MHC.PIE ---
assumed care of patient at this time, patient reports pain in right knee and left knee, transferred to hospital bed with assistance, call jones within reach.
[2024-01-19 20:22] VITALS: BP 144/85; PULSE 72; RESP 16; TEMP 36.8; O2SAT 98
[2024-01-19 21:10] LABS: Glucose, Whole Blood 130 mg/dL (60-115)
[2024-01-19] MEDS: Montelukast Sodium 10 MG TABLET PO (23:09)
[2024-01-19] MEDS: Aspirin Enteric Coated 81 MG TABLET.DR PO (23:09)
--- NOTE | 2024-01-19 23:58 | PC.NURSE ---
medications given late due to not in pyxis at sced time.
[2024-01-20 00:18] VITALS: BP 137/73; PULSE 64; RESP 16; TEMP 36.6; O2SAT 100
--- NOTE | 2024-01-20 00:19 | MHC.EDTECH ---
0000 rounding done ,vitals taken ,Patient clean and dry ,listening to music .
[2024-01-20] MEDS: Omeprazole 40 MG CAPSULE.DR PO (05:59)
[2024-01-20 06:35] VITALS: BP 117/71; PULSE 80; RESP 16; TEMP 36.8; O2SAT 100
--- NOTE | 2024-01-20 06:43 | MHC.EDTECH ---
Call out to [facility] @0135 to confirm BLS transport to [facility] @1533
[2024-01-20 07:42] VITALS: BP 139/74; PULSE 71; RESP 16; TEMP 37.1; O2SAT 97
[2024-01-20] MEDS: Multivitamin TABLET 1 TAB PO (08:29)
[2024-01-20] MEDS: Folic Acid 1 MG TABLET PO (08:30)
[2024-01-20] MEDS: Metoprolol Succinate ER 25 MG TAB.ER.24H PO (08:30)
[2024-01-20] MEDS: Famotidine 20 MG TABLET PO (08:30)
[2024-01-20] MEDS: Thiamine HCL 100 MG TABLET PO (08:30)
[2024-01-20] MEDS: Ferrous Sulfate 324 MG TABLET.DR PO (08:30)
--- NOTE | 2024-01-20 08:46 | MHC.EDTECH ---
pt washed up. gabrielle hyatt given and brief changed.
[2024-01-20] MEDS: Acamprosate Calcium 333 MG TABLET.DR 666 MG PO (08:50)
[2024-01-20 10:07] VITALS: BP 139/74; PULSE 71; RESP 16; TEMP 37.1; O2SAT 97
--- NOTE | 2024-01-20 10:08 | MHC.CM.ED ---
Patient d/c'd to [facility]. Juanjo made aware via telephone.
== END 2024-01-20 10:08 ==
PROVIDERS: Emergency Provider Emergency Medicine; PCP Internal Medicine Geriatric Medicine
DX: M79.605 Pain in left leg (principal); M79.604 Pain in right leg; E11.9 Type 2 diabetes mellitus without complications; I11.0 Hypertensive heart disease with heart failure; I50.9 Heart failure, unspecified; J44.9 Chronic obstructive pulmonary disease, unspecified; F04 Amnestic disorder due to known physiological condition; F12.20 Cannabis dependence, uncomplicated; Z79.899 Other long term (current) drug therapy; Z79.82 Long term (current) use of aspirin; Z79.02 Long term (current) use of antithrombotics/antiplatelets; F17.210 Nicotine dependence, cigarettes, uncomplicated; Z03.818 Encounter for observation for suspected exposure to other biological agents ruled out
CPT/HCPCS: 0241U; 82947; 94640; 97161; 99285

== ENCOUNTER 2024-03-09 16:22 | Inpatient (IN) | payer OTHER, SELFPAY ==
[2024-03-09] VITALS (10 sets, daily range): BP systolic 91–191; BP diastolic 55–97; PULSE 62–82; RESP 16–18; TEMP 36.3–36.8; O2SAT 92–100; BMI 25.5
--- NOTE | ~2024-03-09 | CT_ITS ---
EXAMINATION: CT HEAD WITHOUT CONTRAST CT CERVICAL SPINE WITHOUT CONTRAST CLINICAL INFORMATION: Altered mental status. Fall. Pain. COMPARISON: 03/02/2023 TECHNIQUE: Contiguous axial imaging was performed through the head and cervical spine without intravenous administration of contrast. Sagittal and coronal reformatted images also obtained. This CT examination was performed using dose optimization techniques as appropriate, variously including the following: *Automated exposure control *Adjustment of mA and/or kV according to patient size (this includes techniques or standardized protocols for targeted exams where dose is matched to indication/reason for exam; i.e. extremities or head) *Use of iterative reconstruction technique DLP: 961 mGy-cm FINDINGS: The lateral, third and fourth ventricles are normally outlined. The cortical sulci and basal cisterns are normally outlined as well. There is mild bilateral periventricular and central white matter diminished attenuation. There is no acute territorial defect, hemorrhage or midline shift. The extra-axial spaces are unremarkable. Calvarium/scalp: Intact. Maxillofacial sinuses and mastoids: The visualized maxillofacial sinuses are clear. There is bilateral mastoid opacification which was present previously. Cervical spine: There is mild reversal of the expected cervical spine curvature. There is diffuse amqa-wk-npurbxax cervical disc degenerative change with loss of disc space, endplate change and posterior osteophytes associated with diffuse mild to moderate facet osteoarthritic hypertrophic change with multilevel mild spinal canal and multilevel asmy-zx-peuzydew neuroforaminal narrowing. No fracture is seen. The soft tissues are unremarkable. The visualized upper lung pedro are clear. CT/CT head/brain wo IV con IMPRESSION: 1. No acute intracranial process seen. 2. Bilateral mastoid opacification. 3. No acute bony abnormality seen in the cervical spine. 4. Diffuse cervical spondylosis with multilevel mild spinal canal and pnkw-ro-ssofmnji neuroforaminal narrowing.
--- NOTE | ~2024-03-09 | CT_ITS ---
EXAMINATION: CT HEAD WITHOUT CONTRAST CT CERVICAL SPINE WITHOUT CONTRAST CLINICAL INFORMATION: Altered mental status. Fall. Pain. COMPARISON: 03/02/2023 TECHNIQUE: Contiguous axial imaging was performed through the head and cervical spine without intravenous administration of contrast. Sagittal and coronal reformatted images also obtained. This CT examination was performed using dose optimization techniques as appropriate, variously including the following: *Automated exposure control *Adjustment of mA and/or kV according to patient size (this includes techniques or standardized protocols for targeted exams where dose is matched to indication/reason for exam; i.e. extremities or head) *Use of iterative reconstruction technique DLP: 961 mGy-cm FINDINGS: The lateral, third and fourth ventricles are normally outlined. The cortical sulci and basal cisterns are normally outlined as well. There is mild bilateral periventricular and central white matter diminished attenuation. There is no acute territorial defect, hemorrhage or midline shift. The extra-axial spaces are unremarkable. Calvarium/scalp: Intact. Maxillofacial sinuses and mastoids: The visualized maxillofacial sinuses are clear. There is bilateral mastoid opacification which was present previously. Cervical spine: There is mild reversal of the expected cervical spine curvature. There is diffuse xxoc-ir-jgkvjarn cervical disc degenerative change with loss of disc space, endplate change and posterior osteophytes associated with diffuse mild to moderate facet osteoarthritic hypertrophic change with multilevel mild spinal canal and multilevel romz-pj-qwvbdtqh neuroforaminal narrowing. No fracture is seen. The soft tissues are unremarkable. The visualized upper lung pedro are clear. CT/CT cervical spine wo IV con IMPRESSION: 1. No acute intracranial process seen. 2. Bilateral mastoid opacification. 3. No acute bony abnormality seen in the cervical spine. 4. Diffuse cervical spondylosis with multilevel mild spinal canal and qqqa-cy-ectoabwu neuroforaminal narrowing.
--- NOTE | ~2024-03-09 | XR_ITS ---
EXAMINATION: XR PELVIS CLINICAL INFORMATION: Pain. COMPARISON: 01/17/2024 TECHNIQUE: AP view of the pelvis. FINDINGS: The bone mineralization is within normal limits. There is bilateral severe hip degenerative change more severe on the left with loss of joint space, subchondral sclerosis as well as significant left-sided subchondral cystic change and osteophyte formation grossly similar to previous. There is no acute fracture. There is lower lumbar disc degenerative change. The soft tissues are unremarkable XR/XR pelvis 1-2V IMPRESSION: Severe bilateral hip degenerative change more severe on the left. No acute fracture.
--- NOTE | 2024-03-09 16:22 | ED_ITS ---
HPI - Altered Mental Status General Chief Complaint: Altered Mental Status Stated Complaint: AMS,FALL EARLIER TODAY, EPISODES OF COMBATIVENESS Time Seen by Provider: 03/09/24 16:22 Source: EMS Mode of arrival: EMS Limitations: other History of Present Illness ED Provider: Chandrakant MANNING narrative: 68-year-old female with history of polysubstance abuse, alcohol use disorder, COPD, diabetes, schizophrenia and known left shoulder mass presents with altered mental status. Per EMS, the patient has been acting erratically at home since this morning, she did sustain a fall. Patient will have periods of lethargy, then becomes emotionally labile and combative. Related Data Home Medications ?Medication ?Instructions ?Recorded ?Confirmed albuterol sulfate 90 mcg/actuation 2 puff inhalation Q4-6H PRN 11/26/22 01/18/24 aerosol inhaler (Ventolin HFA) Shortness Of Breath Or Wheezing aspirin 81 mg tablet,delayed 1 tab PO BEDTIME 11/26/22 01/18/24 release folic acid 1 mg tablet 1 mg PO DAILY 11/26/22 01/18/24 metoprolol succinate 25 mg 1 tab PO DAILY 11/26/22 01/18/24 tablet,extended release 24 hr montelukast 10 mg tablet 1 tab PO BEDTIME 11/26/22 01/18/24 omeprazole 40 mg capsule,delayed 1 cap PO DAILY@0630 11/26/22 01/18/24 release pravastatin 20 mg tablet 1 tab PO BEDTIME 11/26/22 01/18/24 thiamine HCl (vitamin B1) 100 mg 1 tab PO DAILY 11/26/22 01/18/24 tablet trazodone 50 mg tablet 1 tab PO BEDTIME PRN insomnia 11/26/22 01/18/24 ferrous sulfate 325 mg (65 mg 325 mg PO DAILY 01/31/23 01/18/24 iron) tablet (FeroSul) fluticasone 250 mcg-salmeterol 50 1 ea inhalation BID 01/31/23 01/18/24 mcg/dose blistr powdr for inhalation (Advair Diskus) ondansetron HCl 4 mg tablet 4 mg PO BID PRN nausea 01/31/23 01/18/24 sennosides 8.6 mg tablet (senna) 8.6 mg PO BID PRN constipation 01/31/23 01/18/24 acamprosate 333 mg tablet,delayed 666 mg PO TID 05/25/23 01/18/24 release albuterol sulfate 2.5 mg/3 mL 2.5 mg inhalation Q4-6H PRN 05/25/23 01/18/24 (0.083 %) solution for nebulization Wheezing famotidine 20 mg tablet 20 mg PO BID 05/25/23 01/18/24 umeclidinium 62.5 mcg/actuation 1 inh inhalation DAILY 05/25/23 01/18/24 blister powder for inhalation (Incruse Ellipta) quetiapine 50 mg tablet 50 mg PO TID 01/18/24 Previous Rx's ?Medication ?Instructions ?Recorded acetaminophen 650 mg 1 tab PO BID PRN pain 30 days #60 04/29/22 tablet,extended release tabs baclofen 20 mg tablet 20 mg PO DAILY PRN Back Pain 30 04/29/22 days #30 tabs multivitamin (Daily-Cony tablet) 1 tab PO DAILY 30 days #30 tabs 04/29/22 oxycodone 5 mg capsule 5 mg PO Q8H PRN pain 3 days #9 caps 01/17/24 Allergies Allergy/AdvReac Type Severity Reaction Status Date / Time fluticasone Allergy Unknown Verified 03/09/24 16:50 [From Advair Diskus] salmeterol Allergy Unknown Verified 03/09/24 16:50 [From Advair Diskus] paroxetine [From Paxil] AdvReac Intermediate Nausea and Verified 03/09/24 16:50 Vomiting Review of Systems 2 Review of Systems: Unable to obtain secondary to patient's altered mental status [facility] Past Medical History Attestation statement: The following information was validated with the patient. Medical History COPD (chronic obstructive pulmonary disease) Effusion of shoulder joint, left Mass of joint of left shoulder Cannabis use disorder, moderate, dependence Dementia Korsakoff disease Chronic hyponatremia Schizophrenia Congestive heart failure Bipolar 1 disorder Osteoarthritis COPD (chronic obstructive pulmonary disease) Hypertension Diabetes Coronary artery disease Sleep apnea Alcohol use disorder Surgical History Hx of appendectomy Family History Family History Sister Breast cancer, Onset Age: 40 Sister Breast cancer, Onset Age: 50 Social History Social History Household Members: Spouse Household Members Other:: 2 Housing: Unknown / Unable to assess Do you presently have visiting nurse or other home services: Yes Unable to assess alcohol history related to: Unknown Alcohol intake: never Comment: 1:1 at bedside Patient Tobacco Use Status: Current everyday Tobacco user Tobacco use type: Cigarette Cigarette Packs Per Day: 0.5 Cigarettes Per Day: 10.0 Years Smoked: 53 Smoked in Last 30 Days: No e-Cigarette/Vaping Use: Never Used Second Hand Smoke Exposure: No Use of substances other than those prescribed or required for medical reasons: Unknown Substance Use Type: Marijuana Advance Directives: Yes Advance Directives on File: Yes Advance Directives Date on File: 10/10/20 Do you have a plan to hurt others: No Plan service: No Current occupational status: unemployed, disabled and other Sexual orientation: Straight/Heterosexual Physical Exam ED Vital Signs: Vital Signs - 24 hr 03/09/24 16:58 03/09/24 19:41 03/09/24 20:30 Temperature 97.3 F 98.3 F Pulse Rate 68 69 68 Respiratory Rate 16 16 18 Blood Pressure 191/87 H 185/65 H 91/55 L Pulse Oximetry 96 97 100 Oxygen Delivery Method Room Air Room Air Room Air 03/09/24 20:45 03/09/24 21:00 03/09/24 21:15 Temperature Pulse Rate 62 75 72 Respiratory Rate 16 16 16 Blood Pressure 167/73 H 171/59 H Pulse Oximetry 98 96 96 Oxygen Delivery Method Room Air Room Air Room Air 03/09/24 21:30 03/09/24 22:48 03/09/24 23:54 Temperature 98.1 F Pulse Rate 74 82 74 Respiratory Rate 16 16 16 Blood Pressure 173/97 H 185/73 H Pulse Oximetry 96 97 92 Oxygen Delivery Method Room Air Room Air Room Air 03/10/24 00:30 03/10/24 03:00 Temperature 98.1 F Pulse Rate 75 68 Respiratory Rate 16 16 Blood Pressure 142/65 H 156/54 H Pulse Oximetry 92 95 Oxygen Delivery Method Room Air Room Air BMI result Body Mass Index 25.5 Const Other: Patient somnolent in bed, woken with vigorous sternal rub, she was not pleased, appears older than stated age, no sign of head trauma on exam Eyes Pupils: Other pupil findings (Pupils are equal and pinpoint) Neck Other: Supple, full range of motion, no midline tenderness Resp Other: Nonlabored respiration Cardio Other: Normal peripheral perfusion Skin Other: No rash Neuro Other: Alert to self, we will not answer additional questions Extrem Other: Bleeding noted over left superior shoulder in relation to a known cyst/growth as she has Psych Other: Patient will be sleeping, then she spontaneously wakes yelling out for help, her behavior is erratic, she is combative, Medications Administered Discontinued Medications Generic Name Dose Route Start Last Admin Trade Name Sunnyq PRN Reason Stop Dose Admin Droperidol 2.5 mg 03/09/24 20:30 03/09/24 20:32 Droperidol 5 Mg/2 Ml Vial IM 03/09/24 20:31 2.5 mg ONCE ONE Administration Haloperidol Lactate 2 mg 03/09/24 19:03 03/09/24 19:15 Haloperidol Lactate 5 Mg/Ml Vial IVPUSH 03/09/24 19:04 2 mg ONCE ONE Administration Sodium Chloride 1,000 mls @ 999 mls/hr 03/09/24 23:00 03/10/24 00:05 Ns IV 03/10/24 00:00 Infused .Q1H1M YUMIKO Infusion Midazolam HCl 1 mg 03/09/24 21:43 03/09/24 21:57 Midazolam Hcl/Pf 2 Mg/2 Ml Vial IVPUSH 03/09/24 21:44 1 mg ONCE ONE Administration Medical Decision Making Medical Decision Making MDM Narrative: 68-year-old female with history of polysubstance abuse, alcohol use disorder, COPD, diabetes, schizophrenia and known left shoulder mass presents with altered mental status. Per EMS, the patient has been acting erratically at home since this morning, she did sustain a fall. Patient will have periods of lethargy, then becomes emotionally labile and combative. Problem: Psychiatric illness, polysubstance abuse, alcohol abuse, diabetes History: Per EMS I have considered the following differential diagnoses: UTI, toxic ingestion, alcohol intoxication, decompensated psychiatric illness, intracranial hemorrhage, cervical spine injury, Plan: Patient's pupils are pinpoint, I do suspect that her behaviors and current altered mental state are secondary to toxidrome. Screening basic labs, serum ethanol and U tox. Her labile behaviors could also be secondary to decompensated psychiatric illness. Unclear at this time. I am also worried for intracranial hemorrhage as we were told she fell earlier today, and now she is altered. It is reassuring that she has no neurologic deficits on exam, is not actively vomiting, is not posturing to suggest an active bleed. Obtaining CT scans of the brain and cervical spine. I have independently reviewed the following tests: Labs: Not anemic, no leukocytosis, no electrolyte abnormality, creatinine subtly elevated, we will give IV fluid mild hyponatremia, she is dry serum ethanol less than 10, U tox positive for marijuana and benzodiazepine CT brain: EXAMINATION: CT HEAD WITHOUT CONTRAST CT CERVICAL SPINE WITHOUT CONTRAST CLINICAL INFORMATION: Altered mental status. Fall. Pain. COMPARISON: 03/02/2023 TECHNIQUE: Contiguous axial imaging was performed through the head and cervical spine without intravenous administration of contrast. Sagittal and coronal reformatted images also obtained. This CT examination was performed using dose optimization techniques as appropriate, variously including the following: *Automated exposure control *Adjustment of mA and/or kV according to patient size (this includes techniques or standardized protocols for targeted exams where dose is matched to indication/reason for exam; i.e. extremities or head) *Use of iterative reconstruction technique DLP: 961 mGy-cm FINDINGS: The lateral, third and fourth ventricles are normally outlined. The cortical sulci and basal cisterns are normally outlined as well. There is mild bilateral periventricular and central white matter diminished attenuation. There is no acute territorial defect, hemorrhage or midline shift. The extra-axial spaces are unremarkable. Calvarium/scalp: Intact. Maxillofacial sinuses and mastoids: The visualized maxillofacial sinuses are clear. There is bilateral mastoid opacification which was present previously. Cervical spine: There is mild reversal of the expected cervical spine curvature. There is diffuse sccc-kz-pyzpnkps cervical disc degenerative change with loss of disc space, endplate change and posterior osteophytes associated with diffuse mild to moderate facet osteoarthritic hypertrophic change with multilevel mild spinal canal and multilevel luuu-zu-iufjuzic neuroforaminal narrowing. No fracture is seen. The soft tissues are unremarkable. The visualized upper lung pedro are clear. CT/CT head/brain wo IV con IMPRESSION: 1. No acute intracranial process seen. 2. Bilateral mastoid opacification. 3. No acute bony abnormality seen in the cervical spine. 4. Diffuse cervical spondylosis with multilevel mild spinal canal and erzv-bi-poruaaaf neuroforaminal narrowing. CT cervical spine:[address] [address] [address] Scan Report Signed Patient: Belia Richardson MR#: [id number] : 1955 Acct:[id number] Age/Sex: 68 / F ADM Date: 03/09/24 Loc: HO.ED Attending Dr: Ordering Physician: Blanche Stallings Date of Service: 03/09/24 Procedure(s): CT cervical spine wo IV con Accession Number(s): [id number] cc: Blanche Stallings; Name,Ryder HARTLEY~ EXAMINATION: CT HEAD WITHOUT CONTRAST CT CERVICAL SPINE WITHOUT CONTRAST CLINICAL INFORMATION: Altered mental status. Fall. Pain. COMPARISON: 03/02/2023 TECHNIQUE: Contiguous axial imaging was performed through the head and cervical spine without intravenous administration of contrast. Sagittal and coronal reformatted images also obtained. This CT examination was performed using dose optimization techniques as appropriate, variously including the following: *Automated exposure control *Adjustment of mA and/or kV according to patient size (this includes techniques or standardized protocols for targeted exams where dose is matched to indication/reason for exam; i.e. extremities or head) *Use of iterative reconstruction technique DLP: 961 mGy-cm FINDINGS: The lateral, third and fourth ventricles are normally outlined. The cortical sulci and basal cisterns are normally outlined as well. There is mild bilateral periventricular and central white matter diminished attenuation. There is no acute territorial defect, hemorrhage or midline shift. The extra-axial spaces are unremarkable. Calvarium/scalp: Intact. Maxillofacial sinuses and mastoids: The visualized maxillofacial sinuses are clear. There is bilateral mastoid opacification which was present previously. Cervical spine: There is mild reversal of the expected cervical spine curvature. There is diffuse eclb-mk-lauxncfz cervical disc degenerative change with loss of disc space, endplate change and posterior osteophytes associated with diffuse mild to moderate facet osteoarthritic hypertrophic change with multilevel mild spinal canal and multilevel ysof-jm-yocizttr neuroforaminal narrowing. No fracture is seen. The soft tissues are unremarkable. The visualized upper lung pedro are clear. CT/CT cervical spine wo IV con IMPRESSION: 1. No acute intracranial process seen. 2. Bilateral mastoid opacification. 3. No acute bony abnormality seen in the cervical spine. 4. Diffuse cervical spondylosis with multilevel mild spinal canal and uisk-ew-wdkdprrs neuroforaminal narrowing. We will be referring the patient to Behavioral Health team given I am concerned for potential decompensated schizophrenia -throughout the night, patient acting erratically, screaming, initially signed out as decompensated schizophrenia -I was made aware at 03:25 by the patient's nurse that the patient has a UTI. -I reviewed patient's labs, patient does have a UTI, new nitrates., history of ESBL. -given the constellation of symptoms and urinalysis, it would be best to treat the patient as UTI, antibiotics have been started. Sepsis is not suspected. -lactic acid and blood cultures have been ordered and pending -discussed the patient with our hospitalist Dr. Davis, patient being admitted Differential Diagnosis Differential Diagnoses: The differential diagnosis associated with the presentation includes UTI, toxic ingestion, alcohol intoxication, decompensated psychiatric illness, intracranial hemorrhage, cervical spine injury, Lab Data 03/09/24 17:58 03/09/24 17:58 Labs: Lab Results 03/09/24 03/09/24 Range/Units 17:58 23:38 WBC 8.1 (4.8-10.8) X10*3/uL RBC 3.43 L (4.20-5.50) X10*6/uL Hgb 10.9 L (12.0-16.0) g/dl Hct 31.4 L D (37.0-47.0) % MCV 91.5 (80.0-98.0) fL MCH 31.8 (27.0-33.0) pg MCHC 34.7 (31.0-35.0) g/dl RDW 13.6 (11.0-16.0) % Plt Count 300 (160-400) X10*3/uL MPV 8.9 L (9.4-12.3) fL Immature Gran % (Auto) 3.7 H (0.0-0.4) % Neut % (Auto) 78.8 H (45-73) % Lymph % (Auto) 8.2 L (20-40) % [place] % (Auto) 9.2 (2-11) % Eos % (Auto) 0.0 (0-4) % Baso % (Auto) 0.1 (0-2) % Lymph # (Auto) 0.7 L (1.2-4.9) X10*3/uL [place] # (Auto) 0.8 (0.1-1.2) X10*3/uL Eos # (Auto) 0.0 (0.0-0.4) X10*3/uL Baso # (Auto) 0.0 (0.0-0.2) X10*3/uL Abs Immat Gran (auto) 0.30 H (0.00-0.03) X10*3/uL Absolute Neuts (auto) 6.4 (2.0-8.3) x10*3/uL Absolute Nucleated RBC 0.000 (0.0-0.012) X10*3/uL Nucleated RBC % (auto) 0.0 (0.0-0.2) /100WBC Sodium 131 L (135-145) mmol/L Potassium 5.0 (3.3-5.1) mmol/L Chloride 100 (96-108) mmol/L Carbon Dioxide 19 L (22-29) mmol/L Anion Gap 17 (12-20) BUN 26 H (9-16) mg/dL Creatinine 1.55 H (0.5-1.4) mg/dL Estim Creat Clear Calc 30.7 Estimated GFR 33 Random Glucose 113 (60-115) mg/dL Calcium 9.7 D (8.4-10.2) mg/dL Magnesium 2.3 (1.6-2.6) mg/dL Total Bilirubin 0.4 (0.0-1.0) mg/dL AST 33 H (5-31) U/L ALT 12 (0-31) U/L Alkaline Phosphatase 104 (39-117) U/L Total Protein 8.2 H (6.5-8.0) g/dL Albumin 4.0 (3.5-5.0) g/dL Urine Color Yellow Urine Appearance Clear Urine pH 5.5 (5.0-9.0) Ur Specific [place] 1.010 (1.005-1.025) Urine Protein 30 (1+) H (Neg-Trace) mg/dL Urine Glucose (UA) Negative (Negative) mg/dL Urine Ketones 15 (Negative) mg/dL Urine Blood Moderate (2+) H (Negative) Urine Nitrite Positive H (Negative) Ur Leukocyte Esterase Moderate (2+) H (Negative) Urine RBC 11-20 H (0-2) /HPF Urine WBC 11-20 H (0-5) /HPF Ur Squamous Epith Cells 0-2 (0-2) /HPF Ur Transition Epith Cell Present Ur Renal Epithelial Cell Present Urine Bacteria 4+ (None Seen) Hyaline Casts 0-2 (0-2) /LPF Urine Opiates Screen Not Detected (Not Detect) Ur Buprenorphine Scrn Not Detected (Not Detect) ng/mL Ur Oxycodone Screen Not Detected (Not Detect) ng/mL Urine Methadone Screen Not Detected (Not Detect) ng/mL Urine Fentanyl Screen Not Detected (Not Detect) Ur Barbiturates Screen Not Detected (Not Detect) Ur Phencyclidine Scrn Not Detected (Not Detect) Ur Amphetamines Screen Not Detected (Not Detect) U Benzodiazepines Scrn POSITIVE H (Not Detect) Urine Cocaine Screen Not Detected (Not Detect) U Marijuana (THC) Screen POSITIVE H (Not Detect) Ethyl Alcohol < 10 mg/dL Discharge Plan Discharge Clinical Impression: Schizophrenia, Agitation, UTI due to extended-spectrum beta lactamase (ESBL) producing Escherichia coli Patient Disposition: Admitted As Inpatient Prescriptions: No Action multivitamin [Daily-Cony] Tablet 1 tab PO DAILY 30 Days Qty: 30 0RF acetaminophen 650 mg tablet extended release 1 tab PO BID PRN (Reason: pain) 30 Days Qty: 60 0RF baclofen 20 mg Tablet 20 mg PO DAILY PRN (Reason: Back Pain) 30 Days Qty: 30 0RF trazodone 50 mg tablet 1 tab PO BEDTIME PRN (Reason: insomnia) omeprazole 40 mg capsule,delayed release(DR/EC) 1 cap PO DAILY@0630 montelukast 10 mg tablet 1 tab PO BEDTIME pravastatin 20 mg tablet 1 tab PO BEDTIME metoprolol succinate 25 mg tablet extended release 24 hr 1 tab PO DAILY albuterol sulfate [Ventolin HFA] 90 mcg/actuation HFA aerosol inhaler 2 puff INHALATION Q4-6H PRN (Reason: Shortness Of Breath Or Wheezing) thiamine HCl (vitamin B1) 100 mg tablet 1 tab PO DAILY aspirin 81 mg tablet,delayed release (DR/EC) 1 tab PO BEDTIME folic acid 1 mg tablet 1 mg PO DAILY fluticasone propion-salmeterol [Advair Diskus] 250-50 mcg/dose blister with device 1 ea INHALATION BID sennosides [senna] 8.6 mg tablet 8.6 mg PO BID PRN (Reason: constipation) ondansetron HCl 4 mg tablet 4 mg PO BID PRN (Reason: nausea) ferrous sulfate [FeroSul] 325 mg (65 mg iron) tablet 325 mg PO DAILY oxycodone 5 mg capsule 5 mg PO Q8H PRN (Reason: pain) 3 Days Qty: 9 0RF Rx Instructions: Partial Fill upon patient request. albuterol sulfate 2.5 mg /3 mL (0.083 %) solution for nebulization 2.5 mg inhalation Q4-6H PRN (Reason: Wheezing) famotidine 20 mg tablet 20 mg PO BID acamprosate 333 mg tablet,delayed release (DR/EC) 666 mg PO TID Incruse Ellipta 62.5 mcg/actuation blister with device 1 inh inhalation DAILY quetiapine 50 mg tablet 50 mg PO TID Print Language: Chinese
[2024-03-09 18:01] LABS: MANUAL DIFF FLAG NO
[2024-03-09 18:17] LABS: Ethanol < 10 mg/dL
[2024-03-09 18:18] LABS: Alanine Aminotransferase 12 U/L (0-31); Alkaline Phosphatase 104 U/L (39-117); Anion Gap 17 (12-20); Aspartate Amino Transferase 33 U/L (5-31); Bilirubin Total 0.4 mg/dL (0.0-1.0); Blood Urea Nitrogen 26 mg/dL (9-16); Calcium 9.7 mg/dL (8.4-10.2); Carbon Dioxide 19 mmol/L (22-29); Chloride 100 mmol/L (96-108); Creatinine Clr Calc Pharmacy 30.7; Estimated Glomerular Filt Rate 33; Glucose Random 113 mg/dL (60-115); Magnesium 2.3 mg/dL (1.6-2.6); Sodium 131 mmol/L (135-145); Total Protein 8.2 g/dL (6.5-8.0)
[2024-03-09 18:19] LABS: Basophils Percent Auto 0.1 % (0-2); Hematocrit 31.4 % (37.0-47.0); Hemoglobin 10.9 g/dl (12.0-16.0); Imm Gran Pct Auto 3.7 % (0.0-0.4); Lymphocytes Absolute Auto 0.7 X10*3/uL (1.2-4.9); Lymphocytes Percent Auto 8.2 % (20-40); Mean Corpuscular HGB Conc 34.7 g/dl (31.0-35.0); Mean Corpuscular Hemoglobin 31.8 pg (27.0-33.0); Mean Corpuscular Volume 91.5 fL (80.0-98.0); Mean Platelet Volume 8.9 fL (9.4-12.3); Monocytes Absolute Auto 0.8 X10*3/uL (0.1-1.2); Monocytes Percent Auto 9.2 % (2-11); Neutrophils Absolute Auto 6.4 x10*3/uL (2.0-8.3); Neutrophils Percent Auto 78.8 % (45-73); Platelet Count 300 X10*3/uL (160-400); Red Blood Count 3.43 X10*6/uL (4.20-5.50); Red Cell Distribution Width 13.6 % (11.0-16.0); White Blood Count 8.1 X10*3/uL (4.8-10.8)
[2024-03-09] MEDS: Haloperidol Lactate 5 MG/ML VIAL 2 MG IVPUSH (19:15)
--- NOTE | 2024-03-09 19:41 | MHC.EDTECH ---
Patient inc therefore patient changed and repositioned
--- NOTE | 2024-03-09 20:30 | PC.NURSE ---
pt reipped out iv line, pt restless, screaming, agitated, unable to sit still. multiple times throughout the day to obtain head CT scan however pt uncooperative per ALICIA Stallings pt ordering IM droperidol to try to obtain CT scan
[2024-03-09] MEDS: droPERidol 5 MG/2 ML VIAL 2.5 MG IM (20:32)
[2024-03-09] MEDS: Midazolam HCl/PF 2 MG/2 ML VIAL 1 MG IVPUSH (21:57)
--- NOTE | 2024-03-09 22:33 | PC.NURSE ---
CT scan obtained
[2024-03-09] MEDS: 0.9 % Sodium Chloride 1,000 ML 999 ML IV (23:09)
--- NOTE | 2024-03-09 23:40 | PC.NURSE ---
pt straight cath'd for urine sample per PA verbal orders. urine sent to lab. pt tolerated well
[2024-03-09 23:44] LABS: Appearance Urine Clear; Color Urine Yellow; Glucose Urine UA Negative (Negative); Leukocyte Esterase Urine Moderate (2+) (Negative); Nitrite Urine Positive (Negative); PH 5.5 (5.0-9.0); UMIC TRIGGER UACC YES; Urine Blood Moderate (2+) (Negative); Urine Ketones 15 mg/dL (Negative); Urine Protein 30 (1+) mg/dL (Neg-Trace)
[2024-03-09 23:56] LABS: Bacteria Urine 4+ (None Seen); Hyaline Casts Urine 0-2 /LPF (0-2); Renal Epithelial Cells Urine Present; Squamous Epithelial Cell Urine 0-2 /HPF (0-2); Transitional Epi Cells Urine Present; UACC Culture Trigger YES
[2024-03-10] VITALS (11 sets, daily range): BP systolic 142–168; BP diastolic 51–79; PULSE 68–91; RESP 16–18; TEMP 36–37.3; O2SAT 92–98; BMI 25.4
[2024-03-10 00:17] LABS: Amphetamine Screen Urine Not Detected (Not Detect); Barbiturates, Urine Not Detected (Not Detect); Benzodiazepines Screen Urine POSITIVE (Not Detect); Buprenorphine Scr Not Detected (Not Detect); Cannabinoid Screen Urine POSITIVE (Not Detect); Cocaine Screen Urine Not Detected (Not Detect); Fentanyl, urine Not Detected (Not Detect); Methadone Screen, Urine Not Detected (Not Detect); Opiate Screen Urine Not Detected (Not Detect); Oxycodone Screen Urine Not Detected (Not Detect); Phencyclidine Screen Urine Not Detected (Not Detect)
--- NOTE | 2024-03-10 02:17 | MHC.CARE ---
Pt was already seen by [facility] in the community earlier yesterday evening. [facility] recommended medical admission due to their belief most of her symptoms/behaviors are due to her physical decompensation. Pt will be assessed in the morning to be able to communicate with collaterals and allow a longer period of observation (toxidrome vs Schizophrenia decompensation.)
[2024-03-10] MEDS: Ertapenem Sodium 1 GM in 0.9 % Sodium Chloride 50 ML IV (03:53)
--- NOTE | 2024-03-10 03:53 | PC.NURSE ---
cultures/lactic obtained via Georgina Goodman. abx administered per provider order.
--- NOTE | 2024-03-10 04:08 | PC.NURSE ---
hospitalist assessing pt at this time.
[2024-03-10] MEDS: 0.9 % Sodium Chloride 1,000 ML 999 ML IVCONT (04:12)
--- NOTE | 2024-03-10 04:44 | P.HPHOSP_ITS ---
History of Present Illness Date of Service: 03/10/24 Attending physician on admission: Graeme Luther Chief Complaint: Right hip pain Belia Carlisle is a 68 years old woman with past medical history significant for schizophrenia, bipolar disorder, dementia, COPD, ESBL UTI, polysubstance abuse, alcohol use disorder, essential hypertension, sleep apnea, chronic systolic + diastolic congestive heart failure (EF 50-55%) and CAD who was brought to the emergency department via EMS after she fell this morning. Also the patient was acting erratically at home since the morning. According to ED triage note the patient has been lethargic on and off and was noted to have pinpoint pupils and reactive to light. On evaluation the patient was sleeping but easily arousable. She will answer simple questions. Told me that her called the ambulance. She has not sure if she fell but complained of right hip pain. She will have periods where she fall asleep with intermittent brief moments of agitation. In the ED, she was found to have stable vital signs. Blood workup showed no leukocytosis. There is no lactic acidosis. Hemoglobin is 10.9 and around baseline. Platelets are normal. There is hyponatremia of 131. Bicarb is 19. Creatinine is 1.55 and BUN 26 (1.23 and 21, respectively 09/2023). LFTs are normal except for slight elevation of AST. Albumin is normal. Urinalysis consistent with urinary tract infection. Urine toxicology is remarkable for benzodiazepine and marijuana. Head CT scan without contrast showed no acute intracranial process and C-spine CT scan showed no acute fractures or dislocations. Pelvic x-ray showed no obvious fractures. ED tx: Ertapenem 1 g IV, Versed 1 mg IV, Droperidol 2.5 mg IM, Haldol 4 mg IV and NS 1 L bolus. Review of Systems 2 Review of Systems: Yes Unobtainable due to mental status [facility] Medical History COPD (chronic obstructive pulmonary disease) Effusion of shoulder joint, left Mass of joint of left shoulder Cannabis use disorder, moderate, dependence Dementia Korsakoff disease Chronic hyponatremia Schizophrenia Congestive heart failure Bipolar 1 disorder Osteoarthritis COPD (chronic obstructive pulmonary disease) Hypertension Diabetes Coronary artery disease Sleep apnea Alcohol use disorder Family History Sister Breast cancer, Onset Age: 40 Sister Breast cancer, Onset Age: 50 Surgical History Hx of appendectomy Social History Household Members: Spouse Household Members Other:: 2 Housing: Unknown / Unable to assess Do you presently have visiting nurse or other home services: Yes Unable to assess alcohol history related to: Unknown Alcohol intake: never Comment: 1:1 at bedside Patient Tobacco Use Status: Current everyday Tobacco user Tobacco use type: Cigarette Cigarette Packs Per Day: 0.5 Cigarettes Per Day: 10.0 Years Smoked: 53 Smoked in Last 30 Days: No e-Cigarette/Vaping Use: Never Used Second Hand Smoke Exposure: No Use of substances other than those prescribed or required for medical reasons: Unknown Substance Use Type: Marijuana Advance Directives: Yes Advance Directives on File: Yes Advance Directives Date on File: 10/10/20 Do you have a plan to hurt others: No Plan service: No Current occupational status: unemployed, disabled and other Sexual orientation: Straight/Heterosexual Meds Allergies Allergy/AdvReac Type Severity Reaction Status Date / Time fluticasone Allergy Unknown Verified 03/09/24 16:50 [From Advair Diskus] salmeterol Allergy Unknown Verified 03/09/24 16:50 [From Advair Diskus] paroxetine [From Paxil] AdvReac Intermediate Nausea and Verified 03/09/24 16:50 Vomiting Active Medications: Current Medications Acetaminophen (Acetaminophen 325 Mg Tablet) 975 mg PO Q6H PRN PRN Reason: Pain, Mild (Pain Scale 1-3) Heparin Sodium (Porcine) (Heparin Sodium,Porcine 5,000 Unit/Ml Vial) 5,000 unit SUBCUT Q8H [facility] Sodium Chloride (Ns) 1,000 mls @ 999 mls/hr IVCONT .Q1H1M ONE Stop: 03/10/24 05:05 Last Admin: 03/10/24 04:12 Dose: 999 mls/hr Sodium Chloride (Ns) 1,000 mls @ 100 mls/hr IVCONT .Q10H [facility] Stop: 03/10/24 14:44 Sodium Chloride (0.9 % Sodium Chloride Flush 3 Ml Syringe) 3 ml IVFLUSH QSHIFT [facility] Home Medications ?Medication ?Instructions ?Recorded ?Confirmed ?Last Taken ?Type albuterol sulfate 90 mcg/actuation 2 puff inhalation Q4-6H PRN 11/26/22 01/18/24 Unknown History aerosol inhaler (Ventolin HFA) Shortness Of Breath Or Wheezing aspirin 81 mg tablet,delayed 1 tab PO BEDTIME 11/26/22 01/18/24 Unknown History release folic acid 1 mg tablet 1 mg PO DAILY 11/26/22 01/18/24 Unknown History metoprolol succinate 25 mg 1 tab PO DAILY 11/26/22 01/18/24 Unknown History tablet,extended release 24 hr montelukast 10 mg tablet 1 tab PO BEDTIME 11/26/22 01/18/24 Unknown History omeprazole 40 mg capsule,delayed 1 cap PO DAILY@0630 11/26/22 01/18/24 Unknown History release pravastatin 20 mg tablet 1 tab PO BEDTIME 11/26/22 01/18/24 Unknown History thiamine HCl (vitamin B1) 100 mg 1 tab PO DAILY 11/26/22 01/18/24 Unknown History tablet trazodone 50 mg tablet 1 tab PO BEDTIME PRN insomnia 11/26/22 01/18/24 Unknown History ferrous sulfate 325 mg (65 mg 325 mg PO DAILY 01/31/23 01/18/24 Unknown History iron) tablet (FeroSul) fluticasone 250 mcg-salmeterol 50 1 ea inhalation BID 01/31/23 01/18/24 Unknown History mcg/dose blistr powdr for inhalation (Advair Diskus) ondansetron HCl 4 mg tablet 4 mg PO BID PRN nausea 01/31/23 01/18/24 Unknown History sennosides 8.6 mg tablet (senna) 8.6 mg PO BID PRN constipation 01/31/23 01/18/24 Unknown History acamprosate 333 mg tablet,delayed 666 mg PO TID 05/25/23 01/18/24 Unknown History release albuterol sulfate 2.5 mg/3 mL 2.5 mg inhalation Q4-6H PRN 05/25/23 01/18/24 Unknown History (0.083 %) solution for nebulization Wheezing famotidine 20 mg tablet 20 mg PO BID 05/25/23 01/18/24 Unknown History umeclidinium 62.5 mcg/actuation 1 inh inhalation DAILY 05/25/23 01/18/24 Unknown History blister powder for inhalation (Incruse Ellipta) quetiapine 50 mg tablet 50 mg PO TID 01/18/24 Unknown History Physical Exam 2 Vital Signs and Narrative: Vital Signs: Last Vital Signs Temp 98.8 F 03/10/24 03:58 Pulse 68 03/10/24 03:00 Resp 16 03/10/24 03:00 BP 156/54 H 03/10/24 03:00 Pulse Ox 95 03/10/24 03:00 O2 Del Method Room Air 03/10/24 03:00 BMI result Body Mass Index 25.5 Constitutional - Sleeping. Easy to arouse. Cooperative. HEENT - Pupils equally round and reactive to light. Normal sclerae. Dry oral mucosa. Heart - S1S2, RRR, No edema Lungs - Normal lung expansion, Normal respiratory effort, No respiratory distress, CTA bilaterally Abdomen - NT / ND; +BS; No rebound or guarding Extremities - no calf tenderness bilaterally, no swelling Musculoskeletal - Normal inspection, normal ROM Skin - Warm/Dry Neurological - Alert & oriented only to person and place. CN III-XII grossly intact. No focal weakness. Confused at time. Normal speech Psychological - Intermittent episodes of agitation. Results Labs 03/09/24 17:58 03/09/24 17:58 Labs: Laboratory Results - last 24 hr 03/09/24 03/09/24 03/10/24 17:58 23:38 03:49 MCV 91.5 MCH 31.8 MCHC 34.7 RDW 13.6 Plt Count 300 MPV 8.9 L Immature Gran % (Auto) 3.7 H Neut % (Auto) 78.8 H Lymph % (Auto) 8.2 L [place] % (Auto) 9.2 Eos % (Auto) 0.0 Baso % (Auto) 0.1 Lymph # (Auto) 0.7 L [place] # (Auto) 0.8 Eos # (Auto) 0.0 Baso # (Auto) 0.0 Abs Immat Gran (auto) 0.30 H Absolute Neuts (auto) 6.4 Absolute Nucleated RBC 0.000 Nucleated RBC % (auto) 0.0 Anion Gap 17 Estim Creat Clear Calc 30.7 Estimated GFR 33 Random Glucose 113 Lactic Acid 1.0 Calcium 9.7 D Magnesium 2.3 Total Bilirubin 0.4 AST 33 H ALT 12 Alkaline Phosphatase 104 Total Protein 8.2 H Albumin 4.0 Urine Color Yellow Urine Appearance Clear Urine pH 5.5 Ur Specific [place] 1.010 Urine Protein 30 (1+) H Urine Glucose (UA) Negative Urine Ketones 15 Urine Blood Moderate (2+) H Urine Nitrite Positive H Ur Leukocyte Esterase Moderate (2+) H Urine RBC 11-20 H Urine WBC 11-20 H Ur Squamous Epith Cells 0-2 Ur Transition Epith Cell Present Ur Renal Epithelial Cell Present Urine Bacteria 4+ Hyaline Casts 0-2 Urine Opiates Screen Not Detected Ur Buprenorphine Scrn Not Detected Ur Oxycodone Screen Not Detected Urine Methadone Screen Not Detected Urine Fentanyl Screen Not Detected Ur Barbiturates Screen Not Detected Ur Phencyclidine Scrn Not Detected Ur Amphetamines Screen Not Detected U Benzodiazepines Scrn POSITIVE H Urine Cocaine Screen Not Detected U Marijuana (THC) Screen POSITIVE H Ethyl Alcohol < 10 Imaging Radiologist's Impressions: Impressions Cervical Spine CT 03/09/24 22:20 IMPRESSION: 1. No acute intracranial process seen. 2. Bilateral mastoid opacification. 3. No acute bony abnormality seen in the cervical spine. 4. Diffuse cervical spondylosis with multilevel mild spinal canal and [id number] neuroforaminal narrowing. Head CT 03/09/24 22:20 IMPRESSION: 1. No acute intracranial process seen. 2. Bilateral mastoid opacification. 3. No acute bony abnormality seen in the cervical spine. 4. Diffuse cervical spondylosis with multilevel mild spinal canal and [id number] neuroforaminal narrowing. Assessment and Plan (1) Encephalopathy: Status: Acute (2) UTI due to extended-spectrum beta lactamase (ESBL) producing Escherichia coli: Status: Acute Plan Belia Carlisle is a 68 years old woman with past medical history significant for schizophrenia, bipolar disorder and dementia admitted with: * Acute encephalopathy likely multifactorial: Toxic and metabolic secondary to UTI (Hx of ESBL). UA is positive for marijuana; unknown as she is an active alcoholic. Admit to hospitalist service. Fall precautions. Patient received tx with ertapenem 1 g IV by ED. Urine culture was obtained -will follow results. Check TSH and vitamin B12. ID consult. * Acute kidney injury. Continue IV fluids. Continue to monitor renal function. Avoid nephrotoxic agents. * s/p fall. Fall precautions. Start vitamin-D. * COPD. Not in acute exacerbation. Continue inhalers. * Type 2 diabetes mellitus. BG checks before meals at bedtime. Insulin sliding scale. * Mood disorder. Continue home medications. * Alcohol dependence. On acamprosate. No signs or symptoms of alcohol withdrawal. CIWA. Thiamine 100 mg IV daily and folic acid 1 mg p.o. daily. * Essential hypertension. Continue home meds. * Hyperlipidemia. Continue statin. * CAD. Continue aspirin and statin. * Chronic systolic and diastolic congestive heart failure, EF 50-55%. Compensated. * History of sleep apnea. ?CPAP use. Check venous blood gas. Code status: Presumed full code. DVT prophylaxis: Heparin Patient will need hospitalization for at least 2 midnights for acute encephalopathy therapy secondary to UTI an SAGAR therapy with IV antibiotics and IV fluids. Quality Stroke Does the patient have a stroke diagnosis?: No VTE Prior VTE?: No VTE Risk Level:: Medical - moderate - high VTE Device Contraindication: Treatment Not Indicated VTE Drug Contraindication: N/A - Med Ordered
[2024-03-10] MEDS: 0.9 % Sodium Chloride 1,000 ML 100 ML IVCONT (04:54)
[2024-03-10 05:32] LABS: MANUAL DIFF FLAG NO
[2024-03-10 05:34] LABS: Basophils Percent Auto 0.3 % (0-2); Eosinophils Percent Auto 0.1 % (0-4); Hematocrit 34.4 % (37.0-47.0); Hemoglobin 11.6 g/dl (12.0-16.0); Imm Gran Abs Auto 0.18 X10*3/uL (0.00-0.03); Imm Gran Pct Auto 2.6 % (0.0-0.4); Lymphocytes Absolute Auto 0.9 X10*3/uL (1.2-4.9); Lymphocytes Percent Auto 13.4 % (20-40); Mean Corpuscular HGB Conc 33.7 g/dl (31.0-35.0); Mean Corpuscular Hemoglobin 31.4 pg (27.0-33.0); Mean Corpuscular Volume 93.2 fL (80.0-98.0); Mean Platelet Volume 8.8 fL (9.4-12.3); Monocytes Absolute Auto 0.9 X10*3/uL (0.1-1.2); Neutrophils Absolute Auto 4.9 x10*3/uL (2.0-8.3); Neutrophils Percent Auto 70.6 % (45-73); Platelet Count 298 X10*3/uL (160-400); Red Blood Count 3.69 X10*6/uL (4.20-5.50); Red Cell Distribution Width 13.7 % (11.0-16.0); White Blood Count 6.9 X10*3/uL (4.8-10.8)
[2024-03-10 05:57] LABS: Alanine Aminotransferase 10 U/L (0-31); Albumin Level 3.9 g/dL (3.5-5.0); Alkaline Phosphatase 101 U/L (39-117); Anion Gap 15 (12-20); Aspartate Amino Transferase 29 U/L (5-31); Bilirubin Total 0.4 mg/dL (0.0-1.0); Blood Urea Nitrogen 19 mg/dL (9-16); Calcium 9.7 mg/dL (8.4-10.2); Carbon Dioxide 19 mmol/L (22-29); Chloride 107 mmol/L (96-108); Creatinine Clr Calc Pharmacy 46.6; Estimated Glomerular Filt Rate 54; Glucose Random 92 mg/dL (60-115); Magnesium 2.1 mg/dL (1.6-2.6); Potassium 4.2 mmol/L (3.3-5.1); Sodium 137 mmol/L (135-145); Total Protein 7.7 g/dL (6.5-8.0)
[2024-03-10 06:13] LABS: Thyroid Stimulating Hormone 1.28 uIU/mL (0.32-4.0); Vitamin D 25-OH Total 30.5 ng/mL (>30)
[2024-03-10 06:22] LABS: Venous Blood Gas Refer to POC result
[2024-03-10 06:27] LABS: VBG Base Excess -6.7 mmol/L; VBG HCO3 17 mmol/L (22-26); VBG pCO2 29 mmHg; VBG pH 7.37 (7.32-7.43); VBG pO2 64 mmHg
[2024-03-10 07:01] LABS: Vitamin B12 884 pg/mL (200-900)
[2024-03-10 07:20] LABS: Glucose, Whole Blood 94 mg/dL (60-115)
--- NOTE | 2024-03-10 07:54 | PC.NURSE ---
POC obtained by tech - no insulin coverage needed. pt repositioned to comfort. sitting upright eating breakfast in no apparent distress. IVF continues to infuse at this time. pt waiting for bed assignment. no sob/wob noted. respirations even/unlabored. plan of care ongoing. call jones placed within reach.
[2024-03-10] MEDS: Folic Acid 1 MG TABLET PO (08:21)
[2024-03-10] MEDS: Thiamine HCL 100 MG in 0.9 % Sodium Chloride 100 ML 202 MG IV (08:22)
[2024-03-10] MEDS: Heparin Sodium,Porcine 5,000 UNIT/ML VIAL 5000 UNIT SUBCUT ×3 (08:22→23:16)
--- NOTE | 2024-03-10 08:29 | PC.NURSE ---
medication administered per provider order.
--- NOTE | 2024-03-10 10:02 | HO.PM.IMPN ---
Subjective Subjective Date of Service: 03/10/24 Interval History: f/u onmetabolic encephalopathy d/t Uti she is less confused this moring Physical Exam Vital Signs: Vital Signs: Last Vital Signs Temp 98.8 F 03/10/24 03:58 Pulse 68 03/10/24 05:34 Resp 16 03/10/24 05:34 BP 168/63 H 03/10/24 05:34 Pulse Ox 94 03/10/24 05:34 O2 Del Method Room Air 03/10/24 05:34 BMI result Body Mass Index 25.5 Objective Data Active Medications Acetaminophen (Acetaminophen 325 Mg Tablet) 975 mg PO Q6H PRN PRN Reason: Pain, Mild (Pain Scale 1-3) Folic Acid (Folic Acid 1 Mg Tablet) 1 mg PO DAILY [facility] Last Admin: 03/10/24 08:21 Dose: 1 mg Documented By: CARLYN Glucose (Glucose Gel 15 Gm Gel..Gram.) 15 gm PO Q15M PRN; Protocol PRN Reason: per Hypoglycemia Standing Ord. Heparin Sodium (Porcine) (Heparin Sodium,Porcine 5,000 Unit/Ml Vial) 5,000 unit SUBCUT Q8H [facility] Last Admin: 03/10/24 08:22 Dose: 5,000 unit Documented By: CARLYN Sodium Chloride (Ns) 1,000 mls @ 100 mls/hr IVCONT .Q10H [facility] Stop: 03/10/24 14:44 Last Admin: 03/10/24 04:54 Dose: 100 mls/hr Documented By: CARLYN Thiamine HCl 100 mg/ Sodium (Chloride) 101 mls @ 202 mls/hr IV DAILY [facility] Stop: 03/13/24 08:59 Last Infusion: 03/10/24 08:52 Dose: Infused Documented By: CARLYN Dextrose (D10) 250 mls @ 750 mls/hr IV Q15M PRN; Protocol PRN Reason: per Hypoglycemia Standing Ord. Insulin Human Lispro (Insulin Lispro 100 Unit/Ml 3 Ml Vial) 0 unit SUBCUT QIDACHS [facility]; Protocol Last Admin: 03/10/24 07:42 Dose: Not Given Documented By: CARLYN Non-Admin Reason: No Insulin Coverage Sodium Chloride (0.9 % Sodium Chloride Flush 3 Ml Syringe) 3 ml IVFLUSH QSHIFT [facility] Last Admin: 03/10/24 07:42 Dose: Not Given Documented By: CARLYN Non-Admin Reason: IV Running Labs 03/10/24 05:17 03/10/24 05:17 Labs: Laboratory Results - last 24 hr 03/09/24 03/09/24 03/10/24 17:58 23:38 03:49 MCV 91.5 MCH 31.8 MCHC 34.7 RDW 13.6 Plt Count 300 MPV 8.9 L Immature Gran % (Auto) 3.7 H Neut % (Auto) 78.8 H Lymph % (Auto) 8.2 L [place] % (Auto) 9.2 Eos % (Auto) 0.0 Baso % (Auto) 0.1 Lymph # (Auto) 0.7 L [place] # (Auto) 0.8 Eos # (Auto) 0.0 Baso # (Auto) 0.0 Abs Immat Gran (auto) 0.30 H Absolute Neuts (auto) 6.4 Absolute Nucleated RBC 0.000 Nucleated RBC % (auto) 0.0 VBG pH VBG pCO2 VBG pO2 VBG HCO3 VBG O2 Saturation VBG Base Excess Anion Gap 17 Estim Creat Clear Calc 30.7 Estimated GFR 33 POC Glucose Random Glucose 113 Lactic Acid 1.0 Calcium 9.7 D Magnesium 2.3 Total Bilirubin 0.4 AST 33 H ALT 12 Alkaline Phosphatase 104 Total Protein 8.2 H Albumin 4.0 Vitamin B12 25-OH Vitamin D Total TSH Urine Color Yellow Urine Appearance Clear Urine pH 5.5 Ur Specific [place] 1.010 Urine Protein 30 (1+) H Urine Glucose (UA) Negative Urine Ketones 15 Urine Blood Moderate (2+) H Urine Nitrite Positive H Ur Leukocyte Esterase Moderate (2+) H Urine RBC 11-20 H Urine WBC 11-20 H Ur Squamous Epith Cells 0-2 Ur Transition Epith Cell Present Ur Renal Epithelial Cell Present Urine Bacteria 4+ Hyaline Casts 0-2 Urine Opiates Screen Not Detected Ur Buprenorphine Scrn Not Detected Ur Oxycodone Screen Not Detected Urine Methadone Screen Not Detected Urine Fentanyl Screen Not Detected Ur Barbiturates Screen Not Detected Ur Phencyclidine Scrn Not Detected Ur Amphetamines Screen Not Detected U Benzodiazepines Scrn POSITIVE H Urine Cocaine Screen Not Detected U Marijuana (THC) Screen POSITIVE H Ethyl Alcohol < 10 03/10/24 03/10/24 03/10/24 05:17 06:09 06:18 MCV 93.2 MCH 31.4 MCHC 33.7 RDW 13.7 Plt Count 298 MPV 8.8 L Immature Gran % (Auto) 2.6 H Neut % (Auto) 70.6 Lymph % (Auto) 13.4 L [place] % (Auto) 13.0 H Eos % (Auto) 0.1 Baso % (Auto) 0.3 Lymph # (Auto) 0.9 L [place] # (Auto) 0.9 Eos # (Auto) 0.0 Baso # (Auto) 0.0 Abs Immat Gran (auto) 0.18 H Absolute Neuts (auto) 4.9 Absolute Nucleated RBC 0.000 Nucleated RBC % (auto) 0.0 VBG pH 7.37 VBG pCO2 29 VBG pO2 64 VBG HCO3 17 L VBG O2 Saturation 91.0 VBG Base Excess -6.7 Anion Gap 15 Estim Creat Clear Calc 46.6 Estimated GFR 54 POC Glucose Random Glucose 92 Lactic Acid Calcium 9.7 Magnesium 2.1 Total Bilirubin 0.4 AST 29 ALT 10 Alkaline Phosphatase 101 Total Protein 7.7 Albumin 3.9 Vitamin B12 884 25-OH Vitamin D Total 30.5 L TSH 1.28 Urine Color Urine Appearance Urine pH Ur Specific [place] Urine Protein Urine Glucose (UA) Urine Ketones Urine Blood Urine Nitrite Ur Leukocyte Esterase Urine RBC Urine WBC Ur Squamous Epith Cells Ur Transition Epith Cell Ur Renal Epithelial Cell Urine Bacteria Hyaline Casts Urine Opiates Screen Ur Buprenorphine Scrn Ur Oxycodone Screen Urine Methadone Screen Urine Fentanyl Screen Ur Barbiturates Screen Ur Phencyclidine Scrn Ur Amphetamines Screen U Benzodiazepines Scrn Urine Cocaine Screen U Marijuana (THC) Screen Ethyl Alcohol 03/10/24 07:17 MCV MCH MCHC RDW Plt Count MPV Immature Gran % (Auto) Neut % (Auto) Lymph % (Auto) [place] % (Auto) Eos % (Auto) Baso % (Auto) Lymph # (Auto) [place] # (Auto) Eos # (Auto) Baso # (Auto) Abs Immat Gran (auto) Absolute Neuts (auto) Absolute Nucleated RBC Nucleated RBC % (auto) VBG pH VBG pCO2 VBG pO2 VBG HCO3 VBG O2 Saturation VBG Base Excess Anion Gap Estim Creat Clear Calc Estimated GFR POC Glucose 94 Random Glucose Lactic Acid Calcium Magnesium Total Bilirubin AST ALT Alkaline Phosphatase Total Protein Albumin Vitamin B12 25-OH Vitamin D Total TSH Urine Color Urine Appearance Urine pH Ur Specific [place] Urine Protein Urine Glucose (UA) Urine Ketones Urine Blood Urine Nitrite Ur Leukocyte Esterase Urine RBC Urine WBC Ur Squamous Epith Cells Ur Transition Epith Cell Ur Renal Epithelial Cell Urine Bacteria Hyaline Casts Urine Opiates Screen Ur Buprenorphine Scrn Ur Oxycodone Screen Urine Methadone Screen Urine Fentanyl Screen Ur Barbiturates Screen Ur Phencyclidine Scrn Ur Amphetamines Screen U Benzodiazepines Scrn Urine Cocaine Screen U Marijuana (THC) Screen Ethyl Alcohol Assessment and Plan (1) Encephalopathy: Status: Acute (2) UTI due to extended-spectrum beta lactamase (ESBL) producing Escherichia coli: Status: Acute (3) Schizophrenia: Status: Acute Plan 68 years old woman with past medical history significant for schizophrenia, bipolar disorder and dementia admitted here with Acute metabolic encephalopathy likely multifactorial: d/t UTI Treat underlying UTI with ertapenem, check ammonia UTI, no spsis, h/o ESBL e. coli, continue Ertapenem Acute kidney injury. Prerenal state, resolved with IVF, Avoid nephrotoxic agents. Mild chronic metabolic acidosis, ? related to kidney failure, lactic acid was normal s/p fall. Fall precautions. Start vitamin-D. No fracture COPD. Not in acute exacerbation. Continue inhalers. Type 2 diabetes mellitus. BG checks before meals at bedtime. Insulin sliding scale. Mood disorder. Continue home medications. Alcohol dependence. On acamprosate. No signs or symptoms of alcohol withdrawal. CIWA. Thiamine 100 mg IV daily and folic acid 1 mg p.o. daily. Essential hypertension. Continue home meds. Hyperlipidemia. Continue statin. CAD. Continue aspirin and statin. Chronic systolic and diastolic congestive heart failure, EF 50-55%. Compensated. History of sleep apnea. ?CPAP use. Check venous blood gas. Code status: Presumed full code. DVT prophylaxis: Heparin med rec not yet completed need for inpatient: metabolic encephalopathy d/t UTI, needing IV Abx Quality Stroke Does the patient have a stroke diagnosis?: No VTE Prior VTE?: No VTE Risk Level:: Medical - moderate - high VTE Device Contraindication: Treatment Not Indicated VTE Drug Contraindication: N/A - Med Ordered
--- NOTE | 2024-03-10 10:09 | PC.NURSE ---
pt's HCP called this RN for a status update - update given via telephone at this time. pt's HCP requesting to speak w/ case management. message relayed to Diamante TREVIÑO.
--- NOTE | 2024-03-10 10:48 | PHA.MEDREC ---
Pharmacy Consult ? Medication Reconciliation Pharmacy has completed the medication reconciliation. Called and spoke to patients significant other Juanjo and he was not so sure about them but knew the pt has a nurse from [facility] who comes a few times a week to give the meds to the pt and I called [facility] and got a med list to confirm their list.
[2024-03-10 11:17] LABS: Ammonia 35 umol/L (13-55)
[2024-03-10 12:15] LABS: Glucose, Whole Blood 107 mg/dL (60-115)
[2024-03-10] MEDS: Omeprazole 40 MG CAPSULE.DR PO (12:32)
[2024-03-10] MEDS: Multivitamin TABLET 1 TAB PO (12:32)
[2024-03-10] MEDS: Aspirin Enteric Coated 81 MG TABLET.DR PO (12:32)
[2024-03-10] MEDS: Metoprolol Succinate ER 25 MG TAB.ER.24H PO (12:32)
--- NOTE | 2024-03-10 14:40 | PC.NURSE ---
pt continues to rest comfortably w/ the lights dimmed in no apparent distress. no sob/wob noted. respirations even/unlabored. plan of care ongoing. call jones placed within reach.
[2024-03-10] MEDS: Acamprosate Calcium 333 MG TABLET.DR 666 MG PO ×2 (16:22→22:20)
[2024-03-10 16:51] LABS: Glucose, Whole Blood 98 mg/dL (60-115)
[2024-03-10] MEDS: 0.9 % Sodium Chloride Flush 3 ML SYRINGE IVFLUSH ×2 (17:33→22:23)
[2024-03-10 20:26] LABS: Glucose, Whole Blood 188 mg/dL (60-115)
[2024-03-10] MEDS: Insulin Lispro 100 UNIT/ML 3 ML VIAL SUBCUT (22:20)
[2024-03-10] MEDS: traZODone HCL 50 MG TABLET PO (22:21)
[2024-03-10] MEDS: Pravastatin Sodium 20 MG TABLET PO (22:21)
[2024-03-10] MEDS: Montelukast Sodium 10 MG TABLET PO (22:21)
--- NOTE | 2024-03-10 22:46 | W.PM.IDCN ---
History of Present Illness Data of Consult Service Date: 03/10/24 Requesting physician: Ramana Valadez Primary Care Provider: MD KERRI Dawson Reason for consult: confusion,combativeness.possible UTI She presents with confusion and combativense She has had ESBL urine in past PMFSH Past Medical History Medical History COPD (chronic obstructive pulmonary disease) Effusion of shoulder joint, left Mass of joint of left shoulder Cannabis use disorder, moderate, dependence Dementia Korsakoff disease Chronic hyponatremia Schizophrenia Congestive heart failure Bipolar 1 disorder Osteoarthritis COPD (chronic obstructive pulmonary disease) Hypertension Diabetes Coronary artery disease Sleep apnea Alcohol use disorder Family History Family History Sister Breast cancer, Onset Age: 40 Sister Breast cancer, Onset Age: 50 Surgical History Surgical History Hx of appendectomy Social History Social History Household Members: Spouse Household Members Other:: 2 Housing: Apartment Do you presently have visiting nurse or other home services: Yes Unable to assess alcohol history related to: Unknown Alcohol intake: never Comment: 1:1 at bedside Patient Tobacco Use Status: Current everyday Tobacco user Tobacco use type: Cigarette Cigarette Packs Per Day: 0.5 Cigarettes Per Day: 10.0 Years Smoked: 53 e-Cigarette/Vaping Use: Never Used Second Hand Smoke Exposure: No Substance Use Type: Marijuana Advance Directives Date on File: 10/10/20 service: No Current occupational status: unemployed, disabled and other Sexual orientation: Straight/Heterosexual Meds Allergies Allergy/AdvReac Type Severity Reaction Status Date / Time fluticasone Allergy Unknown Verified 03/09/24 16:50 [From Advair Diskus] salmeterol Allergy Unknown Verified 03/09/24 16:50 [From Advair Diskus] paroxetine [From Paxil] AdvReac Intermediate Nausea and Verified 03/09/24 16:50 Vomiting Active Medications: Current Medications Acamprosate (Acamprosate Calcium 333 Mg Tablet.) 666 mg PO TID [facility]KO Last Admin: 03/10/24 22:20 Dose: 666 mg Acetaminophen (Acetaminophen 325 Mg Tablet) 975 mg PO Q6H PRN PRN Reason: Pain, Mild (Pain Scale 1-3) Albuterol Sulfate (Albuterol Sulfate (0.083%) 2.5 Mg/3 Ml Vial.Neb) 2.5 mg INHALE Q4H PRN PRN Reason: Wheezing Albuterol Sulfate (Albuterol Sulfate 90 Mcg 8 Gm Inhaler) 2 puff INHALE Q4H PRN PRN Reason: Shortness Of Breath Or Wheezing Aspirin (Aspirin Enteric Coated 81 Mg Tablet.Dr) 81 mg PO DAILY [facility] Last Admin: 03/10/24 12:32 Dose: 81 mg Baclofen (Baclofen 20 Mg Tablet) 20 mg PO DAILY PRN PRN Reason: Back Pain Fluticasone/Vilanterol (Fluticasone/Vilanterol 100/25 Blst.W.Dev) 1 puff INHALE RDAILY [facility] Folic Acid (Folic Acid 1 Mg Tablet) 1 mg PO DAILY [facility] Last Admin: 03/10/24 08:21 Dose: 1 mg Glucose (Glucose Gel 15 Gm Gel..Gram.) 15 gm PO Q15M PRN; Protocol PRN Reason: per Hypoglycemia Standing Ord. Heparin Sodium (Porcine) (Heparin Sodium,Porcine 5,000 Unit/Ml Vial) 5,000 unit SUBCUT Q8H [facility] Last Admin: 03/10/24 17:32 Dose: 5,000 unit Thiamine HCl 100 mg/ Sodium (Chloride) 101 mls @ 202 mls/hr IV DAILY [facility] Stop: 03/13/24 08:59 Last Infusion: 03/10/24 08:52 Dose: Infused Dextrose (D10) 250 mls @ 750 mls/hr IV Q15M PRN; Protocol PRN Reason: per Hypoglycemia Standing Ord. Meropenem 1 gm/ Sodium (Chloride) 100 mls @ 200 mls/hr IV Q12H [facility] [place] Last Admin: 03/10/24 22:23 Dose: 200 mls/hr Insulin Human Lispro (Insulin Lispro 100 Unit/Ml 3 Ml Vial) 0 unit SUBCUT QIDACHS [facility] [place]; Protocol Last Admin: 03/10/24 22:20 Dose: 2 unit Metoprolol Succinate (Metoprolol Succinate Er 25 Mg Tab.Er.24h) 25 mg PO DAILY [facility] [place]; Protocol Last Admin: 03/10/24 12:32 Dose: 25 mg Montelukast Sodium (Montelukast Sodium 10 Mg Tablet) 10 mg PO BEDTIME [facility] Last Admin: 03/10/24 22:21 Dose: 10 mg Multivitamins/Vitamin C (Multivitamin Tablet) 1 tab PO DAILY [facility] Last Admin: 03/10/24 12:32 Dose: 1 tab Omeprazole (Omeprazole 40 Mg Capsule.Dr) 40 mg PO DAILY@0630 [facility] Last Admin: 03/10/24 12:32 Dose: 40 mg Pravastatin Sodium (Pravastatin Sodium 20 Mg Tablet) 20 mg PO BEDTIME [facility] Last Admin: 03/10/24 22:21 Dose: 20 mg Senna (Sennosides 8.6 Mg Tablet) 8.6 mg PO BID PRN PRN Reason: constipation Sodium Chloride (0.9 % Sodium Chloride Flush 3 Ml Syringe) 3 ml IVFLUSH QSHIFT [facility] Last Admin: 03/10/24 22:23 Dose: 3 ml Trazodone HCl (Trazodone Hcl 50 Mg Tablet) 50 mg PO BEDTIME PRN PRN Reason: insomnia Last Admin: 03/10/24 22:21 Dose: 50 mg Home Medications ?Medication ?Instructions ?Recorded ?Confirmed ?Last Taken ?Type albuterol sulfate 90 mcg/actuation 2 puff inhalation Q4H PRN 11/26/22 03/10/24 Unknown History aerosol inhaler (Ventolin HFA) Shortness Of Breath Or Wheezing aspirin 81 mg tablet,delayed 1 tab PO DAILY 11/26/22 03/10/24 Unknown History release folic acid 1 mg tablet 1 mg PO DAILY 11/26/22 03/10/24 Unknown History metoprolol succinate 25 mg 1 tab PO DAILY 11/26/22 03/10/24 Unknown History tablet,extended release 24 hr montelukast 10 mg tablet 1 tab PO BEDTIME 11/26/22 03/10/24 Unknown History omeprazole 40 mg capsule,delayed 1 cap PO DAILY@0630 11/26/22 03/10/24 Unknown History release pravastatin 20 mg tablet 1 tab PO BEDTIME 11/26/22 03/10/24 Unknown History trazodone 50 mg tablet 1 tab PO BEDTIME PRN insomnia 11/26/22 03/10/24 Unknown History fluticasone 250 mcg-salmeterol 50 1 ea inhalation BID 01/31/23 03/10/24 Unknown History mcg/dose blistr powdr for inhalation (Advair Diskus) ondansetron HCl 4 mg tablet 4 mg PO BID PRN nausea 01/31/23 03/10/24 Unknown History sennosides 8.6 mg tablet (senna) 8.6 mg PO BID PRN constipation 01/31/23 03/10/24 Unknown History acamprosate 333 mg tablet,delayed 666 mg PO TID 05/25/23 03/10/24 Unknown History release albuterol sulfate 2.5 mg/3 mL 2.5 mg inhalation Q4H PRN Wheezing 05/25/23 03/10/24 Unknown History (0.083 %) solution for nebulization famotidine 20 mg tablet 20 mg PO BID 05/25/23 03/10/24 Unknown History acetaminophen 650 mg 1 tab PO Q8H PRN pain 03/10/24 03/10/24 Unknown History tablet,extended release Physical Exam Vital Signs: Vital Signs: Last Vital Signs Temp 97.8 F 03/10/24 19:07 Pulse 86 03/10/24 19:07 Resp 18 03/10/24 19:07 BP 150/70 H 03/10/24 19:07 Pulse Ox 98 03/10/24 19:07 O2 Del Method Room Air 03/10/24 19:07 BMI result Body Mass Index 25.4 Results Labs 03/10/24 05:17 03/10/24 05:17 Labs: Short CBC 03/10/24 Range/Units 05:17 WBC 6.9 (4.8-10.8) X10*3/uL Hgb 11.6 L (12.0-16.0) g/dl Hct 34.4 L (37.0-47.0) % Plt Count 298 (160-400) X10*3/uL BMP 03/10/24 05:17 Sodium 137 Potassium 4.2 Chloride 107 Carbon Dioxide 19 L BUN 19 H Creatinine 1.02 Calcium 9.7 Liver Function 03/10/24 Range/Units 05:17 Total Bilirubin 0.4 (0.0-1.0) mg/dL AST 29 (5-31) U/L ALT 10 (0-31) U/L Alkaline Phosphatase 101 (39-117) U/L Albumin 3.9 (3.5-5.0) g/dL Urine 03/09/24 Range/Units 23:38 Urine Color Yellow Urine Appearance Clear Urine pH 5.5 (5.0-9.0) Ur Specific Ary 1.010 (1.005-1.025) Urine Protein 30 (1+) H (Neg-Trace) mg/dL Urine Glucose (UA) Negative (Negative) mg/dL Assessment and Plan (1) Encephalopathy: Status: Acute Plan Continue Merem pending above cultrures, Can have po depends on sensi Await final culture. Possible po [id number]
[2024-03-10] MEDS: Albuterol Sulfate (0.083%) 2.5 MG/3 ML VIAL.NEB INHALE (23:13)
[2024-03-11] VITALS (9 sets, daily range): BP systolic 151–171; BP diastolic 67–81; PULSE 67–83; RESP 16–20; TEMP 36–36.3; O2SAT 94–99
[2024-03-11] MEDS: Omeprazole 40 MG CAPSULE.DR PO (04:56)
[2024-03-11] MEDS: Albuterol Sulfate (0.083%) 2.5 MG/3 ML VIAL.NEB INHALE ×2 (06:06→17:00)
[2024-03-11 07:39] LABS: Glucose, Whole Blood 126 mg/dL (60-115)
[2024-03-11] MEDS: Thiamine HCL 100 MG in 0.9 % Sodium Chloride 100 ML 202 MG IV (08:44)
[2024-03-11] MEDS: Folic Acid 1 MG TABLET PO (08:44)
[2024-03-11] MEDS: Metoprolol Succinate ER 25 MG TAB.ER.24H PO ×2 (08:44→09:57)
[2024-03-11] MEDS: Multivitamin TABLET 1 TAB PO (08:45)
[2024-03-11] MEDS: Heparin Sodium,Porcine 5,000 UNIT/ML VIAL 5000 UNIT SUBCUT ×2 (08:45→17:23)
[2024-03-11] MEDS: 0.9 % Sodium Chloride Flush 3 ML SYRINGE IVFLUSH ×3 (08:45→20:51)
[2024-03-11] MEDS: Acamprosate Calcium 333 MG TABLET.DR 666 MG PO ×3 (08:45→20:51)
[2024-03-11] MEDS: Aspirin Enteric Coated 81 MG TABLET.DR PO (08:45)
--- NOTE | 2024-03-11 09:00 | P.PNIM_ITS ---
Subjective Subjective Date of Service: 03/11/24 Interval History: f/u on metabolic encephalopathy d/t Uti She is no longer confused, has returned to her baseline, and expresses a desire to go home. 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 can't take care of her Physical Exam 2 Vital Signs: Vital Signs: Last Vital Signs Temp 96.8 F 03/11/24 07:31 Pulse 82 03/11/24 08:44 Resp 18 03/11/24 07:31 BP 167/81 H 03/11/24 08:44 Pulse Ox 99 03/11/24 07:31 O2 Del Method Room Air 03/11/24 07:31 BMI result Body Mass Index 25.4 General:alert oriented to self, and place Resp: CTA bilateral CVS: S1,S2,RRR GI: +BS, NT, no distention Skin: No rash Neuro: motor grossly intact Psych: appropriate affect Objective Data Active Medications Acamprosate (Acamprosate Calcium 333 Mg Tablet.) 666 mg PO TID [facility] Last Admin: 03/11/24 08:45 Dose: 666 mg Documented By: KIRBY Acetaminophen (Acetaminophen 325 Mg Tablet) 975 mg PO Q6H PRN PRN Reason: Pain, Mild (Pain Scale 1-3) Albuterol Sulfate (Albuterol Sulfate (0.083%) 2.5 Mg/3 Ml Vial.Chicho) 2.5 mg INHALE Q4H PRN PRN Reason: Wheezing Last Admin: 03/11/24 06:06 Dose: 2.5 mg Documented By: SERAFIN Albuterol Sulfate (Albuterol Sulfate 90 Mcg 8 Gm Inhaler) 2 puff INHALE Q4H PRN PRN Reason: Shortness Of Breath Or Wheezing Aspirin (Aspirin Enteric Coated 81 Mg Tablet.) 81 mg PO DAILY [facility] Last Admin: 03/11/24 08:45 Dose: 81 mg Documented By: KIRBY Baclofen (Baclofen 20 Mg Tablet) 20 mg PO DAILY PRN PRN Reason: Back Pain Fluticasone/Vilanterol (Fluticasone/Vilanterol 100/25 Blst.W.Dev) 1 puff INHALE RDAILY [facility] Folic Acid (Folic Acid 1 Mg Tablet) 1 mg PO DAILY [facility] Last Admin: 03/11/24 08:44 Dose: 1 mg Documented By: KIRBY Glucose (Glucose Gel 15 Gm Gel..Gram.) 15 gm PO Q15M PRN; Protocol PRN Reason: per Hypoglycemia Standing Ord. Heparin Sodium (Porcine) (Heparin Sodium,Porcine 5,000 Unit/Ml Vial) 5,000 unit SUBCUT Q8H [facility] Last Admin: 03/11/24 08:45 Dose: 5,000 unit Documented By: KIRBY Thiamine HCl 100 mg/ Sodium (Chloride) 101 mls @ 202 mls/hr IV DAILY [facility] Stop: 03/13/24 08:59 Last Infusion: 03/11/24 08:50 Dose: 0 mls/hr Documented By: KIRBY Dextrose (D10) 250 mls @ 750 mls/hr IV Q15M PRN; Protocol PRN Reason: per Hypoglycemia Standing Ord. Meropenem 1 gm/ Sodium (Chloride) 100 mls @ 200 mls/hr IV Q12H [facility] Last Admin: 03/11/24 08:44 Dose: 200 mls/hr Documented By: KIRBY Insulin Human Lispro (Insulin Lispro 100 Unit/Ml 3 Ml Vial) 0 unit SUBCUT QIDACHS [facility]; Protocol Last Admin: 03/11/24 07:46 Dose: Not Given Documented By: KIRBY Non-Admin Reason: No Insulin Coverage Metoprolol Succinate (Metoprolol Succinate Er 25 Mg Tab.Er.24h) 25 mg PO DAILY [facility]; Protocol Last Admin: 03/11/24 08:44 Dose: 25 mg Documented By: KIRBY Montelukast Sodium (Montelukast Sodium 10 Mg Tablet) 10 mg PO BEDTIME [facility] Last Admin: 03/10/24 22:21 Dose: 10 mg Documented By: DOUG Multivitamins/Vitamin C (Multivitamin Tablet) 1 tab PO DAILY [facility] Last Admin: 03/11/24 08:45 Dose: 1 tab Documented By: KIRBY Omeprazole (Omeprazole 40 Mg Capsule.Dr) 40 mg PO DAILY@0630 [facility] Last Admin: 03/11/24 04:56 Dose: 40 mg Documented By: DOUG Pravastatin Sodium (Pravastatin Sodium 20 Mg Tablet) 20 mg PO BEDTIME [facility] Last Admin: 03/10/24 22:21 Dose: 20 mg Documented By: DOUG Senna (Sennosides 8.6 Mg Tablet) 8.6 mg PO BID PRN PRN Reason: constipation Sodium Chloride (0.9 % Sodium Chloride Flush 3 Ml Syringe) 3 ml IVFLUSH QSHIFT [facility] Last Admin: 03/11/24 08:45 Dose: 3 ml Documented By: KIRBY Trazodone HCl (Trazodone Hcl 50 Mg Tablet) 50 mg PO BEDTIME PRN PRN Reason: insomnia Last Admin: 03/10/24 22:21 Dose: 50 mg Documented By: DOUG Labs 03/10/24 05:17 03/10/24 05:17 Labs: Laboratory Results - last 24 hr 03/10/24 03/10/24 03/10/24 11:05 12:11 16:46 POC Glucose 107 98 Ammonia 35 03/10/24 03/11/24 20:19 07:35 POC Glucose 188 H 126 H Ammonia Microbiology Microbiology Results: Microbiology 03/10/24 03:51 Blood Culture - Preliminary Blood - Venous No growth after 24 hours. 03/10/24 03:49 Blood Culture - Preliminary Blood - Venous No growth after 24 hours. Assessment and Plan (1) Encephalopathy: Status: Acute (2) UTI due to extended-spectrum beta lactamase (ESBL) producing Escherichia coli: Status: Acute (3) Schizophrenia: Status: Acute Plan 68 years old woman with past medical history significant for schizophrenia, bipolar disorder and dementia admitted here with Acute metabolic encephalopathy likely multifactorial: d/t UTI Treat underlying UTI with ertapenem, check ammonia UTI, no spsis, h/o ESBL e. coli, continue Ertapenem, culture so far negative Acute kidney injury. Prerenal state, resolved with IVF, Avoid nephrotoxic agents. Mild chronic metabolic acidosis, ? related to kidney failure, lactic acid was normal s/p fall. Fall precautions. PT eval COPD. Not in acute exacerbation. Continue inhalers. Type 2 diabetes mellitus. BG checks before meals at bedtime. Insulin sliding scale. Mood disorder. Continue home medications. Alcohol dependence. On acamprosate. No signs or symptoms of alcohol withdrawal. CIWA. Thiamine 100 mg IV daily and folic acid 1 mg p.o. daily. Essential hypertension. BP high, increase toprol to 50 Hyperlipidemia. Continue statin. CAD. Continue aspirin and statin. Chronic systolic and diastolic congestive heart failure, EF 50-55%. Compensated. History of sleep apnea. no cpap use at home Code status: full DVT prophylaxis: Heparin med rec not yet completed need for inpatient: metabolic encephalopathy d/t UTI, needing IV Abx pt eval for possible placement Quality Stroke Does the patient have a stroke diagnosis?: No VTE Prior VTE?: No VTE Risk Level:: Medical - moderate - high VTE Device Contraindication: Treatment Not Indicated VTE Drug Contraindication: N/A - Med Ordered
[2024-03-11 10:50] LABS: Anion Gap 13 (12-20); Blood Urea Nitrogen 14 mg/dL (9-16); Calcium 9.2 mg/dL (8.4-10.2); Carbon Dioxide 22 mmol/L (22-29); Chloride 105 mmol/L (96-108); Creatinine Clr Calc Pharmacy 60.1; Estimated Glomerular Filt Rate > 60; Glucose Random 131 mg/dL (60-115); Potassium 3.7 mmol/L (3.3-5.1); Sodium 136 mmol/L (135-145)
[2024-03-11 11:02] LABS: Glucose, Whole Blood 109 mg/dL (60-115)
[2024-03-11 16:26] LABS: Glucose, Whole Blood 142 mg/dL (60-115)
[2024-03-11 20:13] LABS: Glucose, Whole Blood 125 mg/dL (60-115)
[2024-03-11] MEDS: traZODone HCL 50 MG TABLET PO (20:51)
[2024-03-11] MEDS: Montelukast Sodium 10 MG TABLET PO (20:51)
[2024-03-11] MEDS: Pravastatin Sodium 20 MG TABLET PO (20:51)
[2024-03-11] MEDS: Albuterol Sulfate 90 MCG 8 GM INHALER 2 PUFF INHALE (22:08)
[2024-03-11] MEDS: Baclofen 20 MG TABLET PO (23:37)
[2024-03-12] MEDS: Heparin Sodium,Porcine 5,000 UNIT/ML VIAL 5000 UNIT SUBCUT ×3 (00:12→16:46)
[2024-03-12 03:22] VITALS: BP 140/70; PULSE 65; RESP 18; TEMP 36.5; O2SAT 97
[2024-03-12] MEDS: Omeprazole 40 MG CAPSULE.DR PO (05:52)
[2024-03-12 07:00] VITALS: BP 130/79; PULSE 98; RESP 20; TEMP 36.6; O2SAT 100
[2024-03-12 07:11] LABS: Glucose, Whole Blood 138 mg/dL (60-115)
[2024-03-12] MEDS: Thiamine HCL 100 MG in 0.9 % Sodium Chloride 100 ML 202 MG IV (07:22)
[2024-03-12] MEDS: Folic Acid 1 MG TABLET PO (07:23)
[2024-03-12] MEDS: Aspirin Enteric Coated 81 MG TABLET.DR PO (07:23)
[2024-03-12] MEDS: Acamprosate Calcium 333 MG TABLET.DR 666 MG PO ×3 (07:23→20:17)
[2024-03-12] MEDS: Multivitamin TABLET 1 TAB PO (07:23)
[2024-03-12] MEDS: Acetaminophen 325 MG TABLET 975 MG PO (07:23)
[2024-03-12] MEDS: Metoprolol Succinate ER 50 MG TAB.ER.24H PO (07:23)
[2024-03-12] MEDS: Albuterol Sulfate 90 MCG 8 GM INHALER 2 PUFF INHALE ×2 (07:24→16:46)
[2024-03-12] MEDS: 0.9 % Sodium Chloride Flush 3 ML SYRINGE IVFLUSH ×3 (07:33→20:18)
[2024-03-12] MEDS: Fluticasone/Vilanterol 100/25 BLST.W.DEV 1 PUFF INHALE (07:43)
[2024-03-12 07:46] VITALS: PULSE 68; RESP 18; O2SAT 100
--- NOTE | 2024-03-12 08:13 | P.PNIM_ITS ---
Subjective Subjective Date of Service: 03/12/24 Interval History: f/u on metabolic encephalopathy d/t Uti she is very emotional this morning, wants to go home Physical Exam 2 Vital Signs: Vital Signs: Last Vital Signs Temp 97.9 F 03/12/24 07:00 Pulse 68 03/12/24 07:46 Resp 18 03/12/24 07:46 BP 130/79 03/12/24 07:00 Pulse Ox 100 03/12/24 07:00 O2 Del Method Room Air 03/12/24 07:00 BMI result Body Mass Index 25.4 General:alert oriented to self, and place Resp: CTA bilateral CVS: S1,S2,RRR GI: +BS, NT, no distention Skin: No rash Neuro: motor grossly intact Psych: appropriate affect Objective Data Active Medications Acamprosate (Acamprosate Calcium 333 Mg Tablet.) 666 mg PO TID [facility] Last Admin: 03/12/24 07:23 Dose: 666 mg Documented By: KIRBY Acetaminophen (Acetaminophen 325 Mg Tablet) 975 mg PO Q6H PRN PRN Reason: Pain, Mild (Pain Scale 1-3) Last Admin: 03/12/24 07:23 Dose: 975 mg Documented By: KIRBY Albuterol Sulfate (Albuterol Sulfate (0.083%) 2.5 Mg/3 Ml Vial.Chicho) 2.5 mg INHALE Q4H PRN PRN Reason: Wheezing Last Admin: 03/11/24 17:00 Dose: 2.5 mg Documented By: MILDRED Albuterol Sulfate (Albuterol Sulfate 90 Mcg 8 Gm Inhaler) 2 puff INHALE Q4H PRN PRN Reason: Shortness Of Breath Or Wheezing Last Admin: 03/12/24 07:24 Dose: 2 puff Documented By: KIRBY Aspirin (Aspirin Enteric Coated 81 Mg Tablet.) 81 mg PO DAILY [facility] Last Admin: 03/12/24 07:23 Dose: 81 mg Documented By: KIRBY Baclofen (Baclofen 20 Mg Tablet) 20 mg PO DAILY PRN PRN Reason: Back Pain Last Admin: 03/11/24 23:37 Dose: 20 mg Documented By: KATH Fluticasone/Vilanterol (Fluticasone/Vilanterol 100/25 Blst.W.Dev) 1 puff INHALE RDAILY [facility] Last Admin: 03/12/24 07:43 Dose: 1 puff Documented By: ELIDIA Folic Acid (Folic Acid 1 Mg Tablet) 1 mg PO DAILY [facility] Last Admin: 03/12/24 07:23 Dose: 1 mg Documented By: KIRBY Glucose (Glucose Gel 15 Gm Gel..Gram.) 15 gm PO Q15M PRN; Protocol PRN Reason: per Hypoglycemia Standing Ord. Heparin Sodium (Porcine) (Heparin Sodium,Porcine 5,000 Unit/Ml Vial) 5,000 unit SUBCUT Q8H [facility] Last Admin: 03/12/24 07:24 Dose: 5,000 unit Documented By: KIRBY Thiamine HCl 100 mg/ Sodium (Chloride) 101 mls @ 202 mls/hr IV DAILY [facility] Stop: 03/13/24 08:59 Last Admin: 03/12/24 07:22 Dose: 202 mls/hr Documented By: KIRBY Dextrose (D10) 250 mls @ 750 mls/hr IV Q15M PRN; Protocol PRN Reason: per Hypoglycemia Standing Ord. Meropenem 1 gm/ Sodium (Chloride) 100 mls @ 200 mls/hr IV Q12H [facility] Last Infusion: 03/11/24 21:33 Dose: Infused Documented By: TANK Insulin Human Lispro (Insulin Lispro 100 Unit/Ml 3 Ml Vial) 0 unit SUBCUT QIDACHS [facility]; Protocol Last Admin: 03/12/24 07:33 Dose: Not Given Documented By: KIRBY Non-Admin Reason: No Insulin Coverage Metoprolol Succinate (Metoprolol Succinate Er 50 Mg Tab.Er.24h) 50 mg PO DAILY [facility]; Protocol Last Admin: 03/12/24 07:23 Dose: 50 mg Documented By: KIRBY Montelukast Sodium (Montelukast Sodium 10 Mg Tablet) 10 mg PO BEDTIME [facility] Last Admin: 03/11/24 20:51 Dose: 10 mg Documented By: TANK Multivitamins/Vitamin C (Multivitamin Tablet) 1 tab PO DAILY [facility] Last Admin: 03/12/24 07:23 Dose: 1 tab Documented By: KIRBY Omeprazole (Omeprazole 40 Mg Capsule.Dr) 40 mg PO DAILY@0630 [facility] Last Admin: 03/12/24 05:52 Dose: 40 mg Documented By: KATH Pravastatin Sodium (Pravastatin Sodium 20 Mg Tablet) 20 mg PO BEDTIME [facility] Last Admin: 03/11/24 20:51 Dose: 20 mg Documented By: TANK Senna (Sennosides 8.6 Mg Tablet) 8.6 mg PO BID PRN PRN Reason: constipation Sodium Chloride (0.9 % Sodium Chloride Flush 3 Ml Syringe) 3 ml IVFLUSH QSHIFT [facility] Last Admin: 03/12/24 07:33 Dose: 3 ml Documented By: KIRBY Trazodone HCl (Trazodone Hcl 50 Mg Tablet) 50 mg PO BEDTIME PRN PRN Reason: insomnia Last Admin: 03/11/24 20:51 Dose: 50 mg Documented By: TANK Labs 03/10/24 05:17 03/11/24 10:21 Labs: Laboratory Results - last 24 hr 03/11/24 03/11/24 03/11/24 10:21 10:55 16:20 Hold Purple Top SEE NOTE Anion Gap 13 Estim Creat Clear Calc 60.1 Estimated GFR > 60 POC Glucose 109 142 H Random Glucose 131 H Calcium 9.2 03/11/24 03/12/24 20:10 07:06 Hold Purple Top Anion Gap Estim Creat Clear Calc Estimated GFR POC Glucose 125 H 138 H Random Glucose Calcium Microbiology Microbiology Results: Microbiology 03/09/24 Unknown Urine Culture - Final Urine clean catch - Urine kim top Escherichia coli 03/10/24 03:51 Blood Culture - Preliminary Blood - Venous No growth after 48 hours. 03/10/24 03:49 Blood Culture - Preliminary Blood - Venous No growth after 48 hours. Assessment and Plan (1) Encephalopathy: Status: Acute (2) UTI due to extended-spectrum beta lactamase (ESBL) producing Escherichia coli: Status: Acute (3) Schizophrenia: Status: Acute Plan 68 years old woman with past medical history significant for schizophrenia, bipolar disorder and dementia admitted here with Acute metabolic encephalopathy likel d/t UTI Treat underlying UTI with ertapenem, ammonia nl UTI, no spsis, + ESBL e. coli, continue Ertapenem. Discuss with ID re discharge med options Acute kidney injury. Prerenal state, resolved with IVF, Avoid nephrotoxic agents. Mild chronic metabolic acidosis, resolved. s/p fall. Fall precautions. PT recommend LTAC vs home with 24 hour care, home care aide stating he's no longe able to care for her COPD. Not in acute exacerbation. Continue inhalers. Type 2 diabetes mellitus. BG checks before meals at bedtime. Insulin sliding scale. Mood disorder. Trazadone at bed time Alcohol dependence. On acamprosate. No signs or symptoms of alcohol withdrawal. CIWA. Thiamine 100 mg IV daily and folic acid 1 mg p.o. daily. Essential hypertension. BP high, increase toprol to 50 Hyperlipidemia. Continue statin. CAD. Continue aspirin and statin. Chronic systolic and diastolic congestive heart failure, EF 50-55%. Compensated. History of sleep apnea. no cpap use at home Patient lacks capacity to make decision, HCP invoked. likey vascular+ alcoholic related dementia Code status: full DVT prophylaxis: Heparin need for inpatient: metabolic encephalopathy d/t UTI, needing IV Abx Quality Stroke Does the patient have a stroke diagnosis?: No VTE Prior VTE?: No VTE Risk Level:: Medical - moderate - high VTE Device Contraindication: Treatment Not Indicated VTE Drug Contraindication: N/A - Med Ordered
--- NOTE | 2024-03-12 10:28 | HO.SKINPHOTO ---
Addendum entered by Tati Gill RN 03/12/24 14:29: Foams applied to bilateral heels and coccyx for prevention. Original Note: Left shoulder, per pt unknown etiology. Has been previously recorded as skin tear . Small amount of serous drainage on old dressing, surround skin hyperpigmented. Site cleansed with NaCl pat dried, foam applied, wound care nurse consulted.
[2024-03-12 11:06] LABS: Glucose, Whole Blood 88 mg/dL (60-115)
[2024-03-12 16:00] VITALS: BP 141/68; PULSE 77; RESP 20; TEMP 36.2; O2SAT 100
[2024-03-12 16:47] LABS: Glucose, Whole Blood 118 mg/dL (60-115)
[2024-03-12 19:26] LABS: Glucose, Whole Blood 136 mg/dL (60-115)
[2024-03-12 20:00] VITALS: BP 131/65; PULSE 91; RESP 18; TEMP 36.3; O2SAT 100
[2024-03-12] MEDS: Pravastatin Sodium 20 MG TABLET PO (20:17)
[2024-03-12] MEDS: traZODone HCL 50 MG TABLET PO (20:17)
[2024-03-12] MEDS: Montelukast Sodium 10 MG TABLET PO (20:17)
[2024-03-13] MEDS: Heparin Sodium,Porcine 5,000 UNIT/ML VIAL 5000 UNIT SUBCUT ×3 (00:16→16:50)
[2024-03-13] MEDS: Zolpidem Tartrate 5 MG TABLET PO (00:28)
--- NOTE | 2024-03-13 00:30 | PC.NURSE ---
pt c/o of difficulty sleeping. notified and ordered ambien 5mg po prn.pt medicated with ambien.
[2024-03-13] MEDS: Albuterol Sulfate 90 MCG 8 GM INHALER 2 PUFF INHALE (03:19)
[2024-03-13 03:37] VITALS: BP 142/66; PULSE 77; RESP 18; TEMP 36.2; O2SAT 99
[2024-03-13] MEDS: Omeprazole 40 MG CAPSULE.DR PO (05:57)
[2024-03-13 07:16] VITALS: BP 167/74; PULSE 81; RESP 16; TEMP 36.2; O2SAT 100
[2024-03-13 07:34] LABS: Glucose, Whole Blood 121 mg/dL (60-115)
[2024-03-13] MEDS: Fluticasone/Vilanterol 100/25 BLST.W.DEV 1 PUFF INHALE (07:49)
[2024-03-13 07:51] VITALS: PULSE 78; RESP 16; O2SAT 100
[2024-03-13] MEDS: Acetaminophen 325 MG TABLET 975 MG PO ×2 (08:34→19:23)
[2024-03-13] MEDS: Metoprolol Succinate ER 50 MG TAB.ER.24H PO (08:34)
[2024-03-13] MEDS: Acamprosate Calcium 333 MG TABLET.DR 666 MG PO ×3 (08:35→20:17)
[2024-03-13] MEDS: Aspirin Enteric Coated 81 MG TABLET.DR PO (08:35)
[2024-03-13] MEDS: 0.9 % Sodium Chloride Flush 3 ML SYRINGE IVFLUSH ×3 (08:35→20:18)
[2024-03-13] MEDS: Multivitamin TABLET 1 TAB PO (08:35)
[2024-03-13] MEDS: Folic Acid 1 MG TABLET PO (08:35)
--- NOTE | 2024-03-13 10:19 | P.PNIM_ITS ---
Subjective Subjective Date of Service: 03/13/24 Interval History: f/u on metabolic encephalopathy d/t Uti She is still asking to go home. Physical Exam 2 Vital Signs: Vital Signs: Last Vital Signs Temp 97.1 F 03/13/24 07:16 Pulse 78 03/13/24 07:51 Resp 16 03/13/24 07:51 BP 167/74 H 03/13/24 07:16 Pulse Ox 100 03/13/24 07:16 O2 Del Method Nasal Cannula 03/13/24 07:16 O2 Flow Rate 2 03/13/24 07:16 BMI result Body Mass Index 25.4 General:alert oriented to self, and place Resp: CTA bilateral CVS: S1,S2,RRR GI: +BS, NT, no distention Skin: No rash Neuro: motor grossly intact Psych: appropriate affect Objective Data Active Medications Acamprosate (Acamprosate Calcium 333 Mg Tablet.) 666 mg PO TID [facility] Last Admin: 03/13/24 08:35 Dose: 666 mg Documented By: TANK Acetaminophen (Acetaminophen 325 Mg Tablet) 975 mg PO Q6H PRN PRN Reason: Pain, Mild (Pain Scale 1-3) Last Admin: 03/13/24 08:34 Dose: 975 mg Documented By: TANK Albuterol Sulfate (Albuterol Sulfate (0.083%) 2.5 Mg/3 Ml Vial.Chicho) 2.5 mg INHALE Q4H PRN PRN Reason: Wheezing Last Admin: 03/11/24 17:00 Dose: 2.5 mg Documented By: MILDRED Albuterol Sulfate (Albuterol Sulfate 90 Mcg 8 Gm Inhaler) 2 puff INHALE Q4H PRN PRN Reason: Shortness Of Breath Or Wheezing Last Admin: 03/13/24 03:19 Dose: 2 puff Documented By: JOSELINE Aspirin (Aspirin Enteric Coated 81 Mg Tablet.) 81 mg PO DAILY [facility] Last Admin: 03/13/24 08:35 Dose: 81 mg Documented By: TANK Baclofen (Baclofen 20 Mg Tablet) 20 mg PO DAILY PRN PRN Reason: Back Pain Last Admin: 03/11/24 23:37 Dose: 20 mg Documented By: KATH Fluticasone/Vilanterol (Fluticasone/Vilanterol 100/25 Blst.W.Dev) 1 puff INHALE RDAILY [facility] Last Admin: 03/13/24 07:49 Dose: 1 puff Documented By: ELIDIA Folic Acid (Folic Acid 1 Mg Tablet) 1 mg PO DAILY [facility] Last Admin: 03/13/24 08:35 Dose: 1 mg Documented By: TANK Glucose (Glucose Gel 15 Gm Gel..Gram.) 15 gm PO Q15M PRN; Protocol PRN Reason: per Hypoglycemia Standing Ord. Heparin Sodium (Porcine) (Heparin Sodium,Porcine 5,000 Unit/Ml Vial) 5,000 unit SUBCUT Q8H [facility] Last Admin: 03/13/24 08:35 Dose: 5,000 unit Documented By: TANK Dextrose (D10) 250 mls @ 750 mls/hr IV Q15M PRN; Protocol PRN Reason: per Hypoglycemia Standing Ord. Meropenem 1 gm/ Sodium (Chloride) 100 mls @ 200 mls/hr IV Q12H [facility] Last Infusion: 03/13/24 09:05 Dose: Infused Documented By: TANK Insulin Human Lispro (Insulin Lispro 100 Unit/Ml 3 Ml Vial) 0 unit SUBCUT QIDACHS [facility]; Protocol Last Admin: 03/13/24 07:23 Dose: Not Given Documented By: TANK Non-Admin Reason: No Insulin Coverage Metoprolol Succinate (Metoprolol Succinate Er 50 Mg Tab.Er.24h) 50 mg PO DAILY [facility]; Protocol Last Admin: 03/13/24 08:34 Dose: 50 mg Documented By: TANK Montelukast Sodium (Montelukast Sodium 10 Mg Tablet) 10 mg PO BEDTIME [facility] Last Admin: 03/12/24 20:17 Dose: 10 mg Documented By: JOSELINE Multivitamins/Vitamin C (Multivitamin Tablet) 1 tab PO DAILY [facility] Last Admin: 03/13/24 08:35 Dose: 1 tab Documented By: TANK Omeprazole (Omeprazole 40 Mg Capsule.Dr) 40 mg PO DAILY@0630 [facility] Last Admin: 03/13/24 05:57 Dose: 40 mg Documented By: JOSELINE Pravastatin Sodium (Pravastatin Sodium 20 Mg Tablet) 20 mg PO BEDTIME [facility] Last Admin: 03/12/24 20:17 Dose: 20 mg Documented By: JOSELINE Senna (Sennosides 8.6 Mg Tablet) 8.6 mg PO BID PRN PRN Reason: constipation Sodium Chloride (0.9 % Sodium Chloride Flush 3 Ml Syringe) 3 ml IVFLUSH QSHIFT YUMIKO Last Admin: 03/13/24 08:35 Dose: 3 ml Documented By: TANK Trazodone HCl (Trazodone Hcl 50 Mg Tablet) 50 mg PO BEDTIME PRN PRN Reason: insomnia Last Admin: 03/12/24 20:17 Dose: 50 mg Documented By: JOSELINE Zolpidem Tartrate (Zolpidem Tartrate 5 Mg Tablet) 5 mg PO BEDTIME PRN PRN Reason: Insomnia Last Admin: 03/13/24 00:28 Dose: 5 mg Documented By: JOSELINE Labs 03/10/24 05:17 03/11/24 10:21 Labs: Laboratory Results - last 24 hr 03/12/24 03/12/24 03/12/24 11:03 16:43 19:23 POC Glucose 88 118 H 136 H 03/13/24 07:18 POC Glucose 121 H Microbiology Microbiology Results: Microbiology 03/09/24 Unknown Urine Culture - Final Urine clean catch - Urine kim top Escherichia coli Assessment and Plan (1) Encephalopathy: Status: Acute (2) UTI due to extended-spectrum beta lactamase (ESBL) producing Escherichia coli: Status: Acute (3) Schizophrenia: Status: Acute Plan 68 years old woman with past medical history significant for schizophrenia, bipolar disorder and dementia admitted here with Acute metabolic encephalopathy likel d/t UTI --resolved. Treat underlying UTI with ertapenem, ammonia nl UTI, no spsis, + ESBL e. coli, continue Ertapenem. Discuss with ID re discharge med options Acute kidney injury. Prerenal state, resolved with IVF, Avoid nephrotoxic agents. Mild chronic metabolic acidosis, resolved. s/p fall. Fall precautions. PT recommend LTAC vs home with 24 hour care, healthcare corporate account director stating he's no longe able to care for her COPD. Not in acute exacerbation. Continue inhalers. Type 2 diabetes mellitus. BG checks before meals at bedtime. Insulin sliding scale. Mood disorder. Trazadone at bed time Alcohol dependence. On acamprosate. No signs or symptoms of alcohol withdrawal. CIWA. Thiamine 100 mg IV daily and folic acid 1 mg p.o. daily. Essential hypertension. BP high, increase toprol to 50 Hyperlipidemia. Continue statin. CAD. Continue aspirin and statin. Chronic systolic and diastolic congestive heart failure, EF 50-55%. Compensated. History of sleep apnea. no cpap use at home Patient lacks capacity to make decision, HCP invoked. likey vascular+ alcoholic related dementia Code status: full DVT prophylaxis: Heparin need for inpatient: metabolic encephalopathy d/t UTI, needing IV Abx Quality Stroke Does the patient have a stroke diagnosis?: No VTE Prior VTE?: No VTE Risk Level:: Medical - moderate - high VTE Device Contraindication: Treatment Not Indicated VTE Drug Contraindication: N/A - Med Ordered
--- NOTE | 2024-03-13 10:44 | MHC.CM.PN ---
Addendum entered by Lucy Sanabria RN 03/13/24 15:56: Per MD, patient will finish IV abx tomorrow and dc on PO abx tomorrow. Auth pending. CM will continue to follow. Original Note: EMR reviewed. Per MD rounds patient not medically cleared. Awaiting ID input, ? need for IV abx. Patient will need SNF placement, as is not able to care for her at this time. [facility] has accepted and is going for auth. updated on plan and is agreeable. CM will continue to follow.
[2024-03-13 11:20] LABS: Glucose, Whole Blood 122 mg/dL (60-115)
[2024-03-13] MEDS: Baclofen 20 MG TABLET PO (15:15)
[2024-03-13 16:00] VITALS: BP 142/67; PULSE 75; RESP 13; TEMP 36.3; O2SAT 100
[2024-03-13 16:44] LABS: Glucose, Whole Blood 128 mg/dL (60-115)
[2024-03-13 19:11] VITALS: BP 138/67; PULSE 78; RESP 18; TEMP 36.2; O2SAT 100
[2024-03-13 20:15] LABS: Glucose, Whole Blood 127 mg/dL (60-115)
[2024-03-13] MEDS: Montelukast Sodium 10 MG TABLET PO (20:17)
[2024-03-13] MEDS: Pravastatin Sodium 20 MG TABLET PO (20:18)
[2024-03-13] MEDS: traZODone HCL 50 MG TABLET PO (20:18)
[2024-03-13] MEDS: traMADoL HCL 50 MG TABLET 25 MG PO (20:22)
[2024-03-14] MEDS: Heparin Sodium,Porcine 5,000 UNIT/ML VIAL 5000 UNIT SUBCUT ×2 (01:06→08:41)
[2024-03-14 02:43] VITALS: BP 115/56; PULSE 79; RESP 18; TEMP 36.6; O2SAT 99
[2024-03-14] MEDS: Albuterol Sulfate (0.083%) 2.5 MG/3 ML VIAL.NEB INHALE (03:02)
[2024-03-14 03:03] VITALS: PULSE 79; RESP 18; O2SAT 99
[2024-03-14] MEDS: Omeprazole 40 MG CAPSULE.DR PO (05:29)
[2024-03-14] MEDS: traMADoL HCL 50 MG TABLET 25 MG PO (06:36)
[2024-03-14 07:36] VITALS: BP 137/63; PULSE 65; RESP 17; TEMP 36.6; O2SAT 100
[2024-03-14 07:56] LABS: Glucose, Whole Blood 116 mg/dL (60-115)
[2024-03-14] MEDS: Aspirin Enteric Coated 81 MG TABLET.DR PO (08:41)
[2024-03-14] MEDS: Metoprolol Succinate ER 50 MG TAB.ER.24H PO (08:41)
[2024-03-14] MEDS: Folic Acid 1 MG TABLET PO (08:41)
[2024-03-14] MEDS: Acamprosate Calcium 333 MG TABLET.DR 666 MG PO (08:41)
[2024-03-14] MEDS: Multivitamin TABLET 1 TAB PO (08:41)
[2024-03-14] MEDS: 0.9 % Sodium Chloride Flush 3 ML SYRINGE IVFLUSH (08:41)
--- NOTE | 2024-03-14 09:21 | PM.DS ---
DS: Providers Provider Date of Service: 03/14/24 Date of admission: 03/10/24 04:34 Primary care physician: Ryder Monique MD Consults: 03/10/24 01:52 Consult to Care Team Stat Comment: Reason for consultation: Concerned for decompensated schizophrenia 03/10/24 04:56 Consult to Infectious Diseases Routine Consulting Provider: [facility] Reason for consultation: Hx of ESBL, AMS due to UTI Has provider been notified: No 03/10/24 21:33 Consult to Infectious Diseases Routine Consulting Provider: CYNDI CARABALLO Reason for consultation: UTI, ESBL Has provider been notified: No 03/12/24 10:27 Consult to Wound Care Routine Reason for consultation: left shoulder ulcer DS: Diagnosis Discharge Diagnosis (1) Encephalopathy: Status: Acute (2) UTI due to extended-spectrum beta lactamase (ESBL) producing Escherichia coli: Status: Acute (3) Schizophrenia: Status: Acute DS: Summary Hospital Course Hospital Course: admission hpi Chief Complaint: Right hip pain Belia Carlisle is a 68 years old woman with past medical history significant for schizophrenia, bipolar disorder, dementia, COPD, ESBL UTI, polysubstance abuse, alcohol use disorder, essential hypertension, sleep apnea, chronic systolic + diastolic congestive heart failure (EF 50-55%) and CAD who was brought to the emergency department via EMS after she fell this morning. Also the patient was acting erratically at home since the morning. According to ED triage note the patient has been lethargic on and off and was noted to have pinpoint pupils and reactive to light. On evaluation the patient was sleeping but easily arousable. She will answer simple questions. Told me that her called the ambulance. She has not sure if she fell but complained of right hip pain. She will have periods where she fall asleep with intermittent brief moments of agitation. In the ED, she was found to have stable vital signs. Blood workup showed no leukocytosis. There is no lactic acidosis. Hemoglobin is 10.9 and around baseline. Platelets are normal. There is hyponatremia of 131. Bicarb is 19. Creatinine is 1.55 and BUN 26 (1.23 and 21, respectively 09/2023). LFTs are normal except for slight elevation of AST. Albumin is normal. Urinalysis consistent with urinary tract infection. Urine toxicology is remarkable for benzodiazepine and marijuana. Head CT scan without contrast showed no acute intracranial process and C-spine CT scan showed no acute fractures or dislocations. Pelvic x-ray showed no obvious fractures. ED tx: Ertapenem 1 g IV, Versed 1 mg IV, Droperidol 2.5 mg IM, Haldol 4 mg IV and NS 1 L bolus. hospital course: Patient presented following a fall with right hip pain and was found to have encephalopathy with normal ammonia level, no acute finding on CT. UA was consistent with UTT which we believe is the source of encephalopathy, she has been treated with IV Meropenem for resistant ESBL UTI which she has history of, ID recommends 5 days of treatment which she has completed. Her mental status has returned to her baseline. Her lifestyle consultant is saying he is not able to care for her at home and will therefore be discharged to SNF. Continue all other medication Time Attestation Discharge Coordination Time (in mins): 40 Quality: Safe Use of Opioids Does Pt have an Active Cancer Diagnosis on the Problem List?: No Quality: Stroke Does the patient have a stroke diagnosis?: No Physical Exam Vital Signs: Vital Signs: Last Vital Signs Temp 97.9 F 03/14/24 07:36 Pulse 65 03/14/24 07:36 Resp 17 03/14/24 07:36 BP 137/63 03/14/24 07:36 Pulse Ox 100 03/14/24 07:36 O2 Del Method Nasal Cannula 03/14/24 07:36 O2 Flow Rate 2.0 03/14/24 07:36 BMI result Body Mass Index 25.4 Const: Other: General: AO X 3, no acute distress Resp: CTA bilateral CVS: S1,S2,RRR GI: +BS, NT, no distention Skin: No rash Neuro: motor grossly intact Psych: appropriate affect DS: Data Data Completed and Pending Completed studies during hospitalization [Text1]: Procedures Detoxification Services for Substance Abuse Treatment (03/03/23) Insertion of Infusion Device into Superior Vena Cava, Percutaneous Approach (05/01/21) Labs on day of discharge: Laboratory Results - last 24 hr 03/13/24 03/13/24 03/13/24 11:15 16:40 20:09 POC Glucose 122 H 128 H 127 H 03/14/24 07:40 POC Glucose 116 H Preliminary micro results at discharge 03/10/24 03:51 Blood Culture - Preliminary Blood - Venous No growth after 48 hours. 03/10/24 03:49 Blood Culture - Preliminary Blood - Venous No growth after 48 hours. Discharge Plan Discharge Anticipated Discharge Date/Time: 03/14/24 09:26 Patient Disposition: Xfer SNF Discharge Diagnosis: Metabolic encephalopathy, ESBL UTI Referrals: [facility] [Outside] - 1 Week Name,MD Ryder [Primary Care Provider] - 1 Week Discharge Medications: New nicotine 14 mg/24 hr Patch 24 Hour 14 mg transdermal DAILY Qty: 30 0RF Continued multivitamin [Daily-Cony] Tablet 1 tab PO DAILY 30 Days Qty: 30 0RF Rx Instructions: With Food baclofen 20 mg Tablet 20 mg PO DAILY PRN (Reason: Back Pain) 30 Days Qty: 30 0RF trazodone 50 mg tablet 1 tab PO BEDTIME PRN (Reason: insomnia) omeprazole 40 mg capsule,delayed release(DR/EC) 1 cap PO DAILY@0630 montelukast 10 mg tablet 1 tab PO BEDTIME pravastatin 20 mg tablet 1 tab PO BEDTIME metoprolol succinate 25 mg tablet extended release 24 hr 1 tab PO DAILY albuterol sulfate [Ventolin HFA] 90 mcg/actuation HFA aerosol inhaler 2 puff INHALATION Q4H PRN (Reason: Shortness Of Breath Or Wheezing) aspirin 81 mg tablet,delayed release (DR/EC) 1 tab PO DAILY folic acid 1 mg tablet 1 mg PO DAILY fluticasone propion-salmeterol [Advair Diskus] 250-50 mcg/dose blister with device 1 ea INHALATION BID sennosides [senna] 8.6 mg tablet 8.6 mg PO BID PRN (Reason: constipation) ondansetron HCl 4 mg tablet 4 mg PO BID PRN (Reason: nausea) acetaminophen 650 mg tablet extended release 1 tab PO Q8H PRN (Reason: pain) albuterol sulfate 2.5 mg /3 mL (0.083 %) solution for nebulization 2.5 mg inhalation Q4H PRN (Reason: Wheezing) famotidine 20 mg tablet 20 mg PO BID acamprosate 333 mg tablet,delayed release (DR/EC) 666 mg PO TID Discharge Orders: Discharge Order (Routine); Ordered 03/14/24 Ordered By: Ramana Tineo Diet: Diabetic diet Activity on Discharge: As tolerated Stand Alone Forms: Patient Portal Discharge page Print Language: Bulgarian Care Plan Goals: recovery from UTI and metabolic encephalopathy Health Concerns: metabolic encephalopathy due to UTI Plan of Treatment: continue taking your medications as before and follow up with your Doctor in a week You are going to short term rehab for less than 30 days Assessment: cher Discharge Date/Time: 03/14/24 12:58
[2024-03-14] MEDS: Nicotine 14 MG PATCH.TD24 TRANSDERMA (11:09)
--- NOTE | 2024-03-14 11:09 | MHC.CM.PN ---
IMM 03/14/24 Patient is discharged today. Her HCP is invoked. Juanjo has been notified of the discharge. He agrees with the plan. The patient would like to discharge home. Juanjo has been notified of pts preference to go home. He refeuses to take her home prior to SNF stay. She will discharge to [facility] in [facility]. Insurance authorization has been received. 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 CTS auth received for transport.
[2024-03-14 11:30] LABS: Glucose, Whole Blood 102 mg/dL (60-115)
[2024-03-14] MEDS: LORazepam 2 MG/ML VIAL 0.5 MG IVPUSH (11:52)
== END 2024-03-14 12:58 | disposition skilled nursing facility (03) | DRG 689 ==
LOC: HO.ED 03-10 03:36 → HO.EDOVER 03-10 04:45 → HO.S3 03-10 14:49
PROVIDERS: Emergency Medicine; Physician Assistant Medical; Admitting Provider Internal Medicine; Emergency Provider Internal Medicine; PCP Internal Medicine Geriatric Medicine; Visit Provider Internal Medicine
DX: N39.0 Urinary tract infection, site not specified (principal); G92.8 Other toxic encephalopathy; E87.1 Hypo-osmolality and hyponatremia; Z16.12 Extended spectrum beta lactamase (ESBL) resistance; I50.42 Chronic combined systolic (congestive) and diastolic (congestive) heart failure; N17.9 Acute kidney failure, unspecified; E87.22 Chronic metabolic acidosis; F10.27 Alcohol dependence with alcohol-induced persisting dementia; F31.9 Bipolar disorder, unspecified; F01.50 Vascular dementia, unspecified severity, without behavioral disturbance, psychotic disturbance, mood disturbance, and anxiety; G47.30 Sleep apnea, unspecified; F20.9 Schizophrenia, unspecified; I11.0 Hypertensive heart disease with heart failure; E11.9 Type 2 diabetes mellitus without complications; I25.10 Atherosclerotic heart disease of native coronary artery without angina pectoris; F17.210 Nicotine dependence, cigarettes, uncomplicated; F19.10 Other psychoactive substance abuse, uncomplicated; J44.9 Chronic obstructive pulmonary disease, unspecified; Z71.6 Tobacco abuse counseling; B96.20 Unspecified Escherichia coli [E. coli] as the cause of diseases classified elsewhere; Z79.51 Long term (current) use of inhaled steroids; Z79.82 Long term (current) use of aspirin; Z79.899 Other long term (current) drug therapy
CPT/HCPCS: 36415; 70450; 72125; 72170; 80048; 80053; 80307; 81001; 82140; 82306; 82607; 82803; 82947; 83605; 83735; 84443; 85025; 87040; 87086; 87088; 87186; 94640; 97161; 99285; J1335; J1630; J1644; J1790; J2060; J2185; J2250; J3411

== ENCOUNTER → 2024-03-10 04:34 | Outpatient (BNV) | payer OTHER, SELFPAY | PROVIDERS: Admitting Provider Internal Medicine; Emergency Provider Internal Medicine; PCP Internal Medicine Geriatric Medicine; Visit Provider Internal Medicine | DX: G93.40 Encephalopathy, unspecified (principal); N39.0 Urinary tract infection, site not specified; B96.29 Other Escherichia coli [E. coli] as the cause of diseases classified elsewhere; Z16.12 Extended spectrum beta lactamase (ESBL) resistance; F20.9 Schizophrenia, unspecified | CPT/HCPCS: 99223; 99232; 99239; 99499 ==

== ENCOUNTER → 2024-03-10 04:34 | Outpatient (BNV) | payer OTHER, SELFPAY | PROVIDERS: Admitting Provider Internal Medicine; Emergency Provider Internal Medicine; PCP Internal Medicine Geriatric Medicine; Visit Provider Internal Medicine | DX: G93.40 Encephalopathy, unspecified (principal) | CPT/HCPCS: 99222 ==

== ENCOUNTER 2024-04-26 07:14 | Emergency (ER) | payer OTHER, SELFPAY ==
[2024-04-26 07:19] VITALS: BP 140/64; PULSE 114; O2SAT 100; BMI 26.3
--- NOTE | 2024-04-26 07:19 | PC.NURSE ---
a&ox4 - answers questions/follows commands appropriately but seems to be slightly confused at times. biba from home d/t concern of left shoulder. pt reports increased pain. reports increased discharge/odor. wrapped upon EMS arrival. when being assessed by provider, clear discharge noted from wound in left shoulder. pt rating pain a 10/10. skin warm to the touch around the site. small odor noted. afebrile. wound redressed by tech. no sob/wob noted. respirations even/unlabored. plan of care ongoing. call jones placed within reach.
[2024-04-26 07:22] VITALS: BP 138/56; PULSE 72; RESP 16; TEMP 36.8; O2SAT 98
--- NOTE | 2024-04-26 07:37 | PC.NURSE ---
bed harvey utilized - urine obtained/sent to lab.
--- NOTE | 2024-04-26 07:38 | ED_ITS ---
HPI - Extremity Problem General Chief complaint: Extremity Injury, Upper Stated complaint: LSHOULDER PAIN & WOUND INFECTED X6 MONTHS Time Seen by Provider: 04/26/24 07:16 Source: patient and EMS Mode of arrival: EMS Limitations: no limitations History of Present Illness ED Provider: Dr. Mandujano HPI Narrative: Patient with baseline dementia secondary to alcoholism. She presents with diffuse bodyaches and is fixated on her shoulder wound that she has had for weeks. She is concerned that the shoulder wounds are infected Onset (ago): week(s) Pain Consistency: constant Related Data Home Medications ?Medication ?Instructions ?Recorded ?Confirmed albuterol sulfate 90 mcg/actuation 2 puff inhalation Q4H PRN 11/26/22 03/10/24 aerosol inhaler (Ventolin HFA) Shortness Of Breath Or Wheezing aspirin 81 mg tablet,delayed 1 tab PO DAILY 11/26/22 03/10/24 release folic acid 1 mg tablet 1 mg PO DAILY 11/26/22 03/10/24 metoprolol succinate 25 mg 1 tab PO DAILY 11/26/22 03/10/24 tablet,extended release 24 hr montelukast 10 mg tablet 1 tab PO BEDTIME 11/26/22 03/10/24 omeprazole 40 mg capsule,delayed 1 cap PO DAILY@0630 11/26/22 03/10/24 release pravastatin 20 mg tablet 1 tab PO BEDTIME 11/26/22 03/10/24 trazodone 50 mg tablet 1 tab PO BEDTIME PRN insomnia 11/26/22 03/10/24 fluticasone 250 mcg-salmeterol 50 1 ea inhalation BID 01/31/23 03/10/24 mcg/dose blistr powdr for inhalation (Advair Diskus) ondansetron HCl 4 mg tablet 4 mg PO BID PRN nausea 01/31/23 03/10/24 sennosides 8.6 mg tablet (senna) 8.6 mg PO BID PRN constipation 01/31/23 03/10/24 acamprosate 333 mg tablet,delayed 666 mg PO TID 05/25/23 03/10/24 release albuterol sulfate 2.5 mg/3 mL 2.5 mg inhalation Q4H PRN Wheezing 05/25/23 03/10/24 (0.083 %) solution for nebulization famotidine 20 mg tablet 20 mg PO BID 05/25/23 03/10/24 acetaminophen 650 mg 1 tab PO Q8H PRN pain 03/10/24 03/10/24 tablet,extended release Previous Rx's ?Medication ?Instructions ?Recorded baclofen 20 mg tablet 20 mg PO DAILY PRN Back Pain 30 04/29/22 days #30 tabs multivitamin (Daily-Cony tablet) 1 tab PO DAILY 30 days #30 tabs 04/29/22 nicotine 14 mg/24 hr daily 14 mg transdermal DAILY #30 ea 03/14/24 transdermal patch Allergies Allergy/AdvReac Type Severity Reaction Status Date / Time fluticasone Allergy Unknown Verified 04/26/24 07:20 [From Advair Diskus] salmeterol Allergy Unknown Verified 04/26/24 07:20 [From Advair Diskus] paroxetine [From Paxil] AdvReac Intermediate Nausea and Verified 04/26/24 07:20 Vomiting Review of Systems 2 Review of Systems: Yes all other systems are reviewed and are negative Neurologic: Denies Sensory deficit (Neuro) [facility] Past Medical History Medical History COPD (chronic obstructive pulmonary disease) Effusion of shoulder joint, left Mass of joint of left shoulder Cannabis use disorder, moderate, dependence Dementia Korsakoff disease Chronic hyponatremia Schizophrenia Congestive heart failure Bipolar 1 disorder Osteoarthritis COPD (chronic obstructive pulmonary disease) Hypertension Diabetes Coronary artery disease Sleep apnea Alcohol use disorder Surgical History Hx of appendectomy Family History Family History Sister Breast cancer, Onset Age: 40 Sister Breast cancer, Onset Age: 50 Social History Social History Household Members: Spouse Household Members Other:: 2 Housing: Apartment Do you presently have visiting nurse or other home services: Yes Unable to assess alcohol history related to: Unknown Alcohol intake: never Comment: 1:1 at bedside Patient Tobacco Use Status: Current everyday Tobacco user Tobacco use type: Cigarette Cigarette Packs Per Day: 0.5 Cigarettes Per Day: 10.0 Years Smoked: 53 e-Cigarette/Vaping Use: Never Used Second Hand Smoke Exposure: No Substance Use Type: Marijuana Advance Directives: Yes Advance Directives on File: Yes Advance Directives Date on File: 10/10/20 Do you have a plan to hurt others: No Plan service: No Current occupational status: unemployed, disabled and other Sexual orientation: Straight/Heterosexual Physical Exam 2 Vital Signs: Vital Signs: Last Vital Signs Temp 98.4 F 04/26/24 15:30 Pulse 67 04/26/24 15:30 Resp 16 04/26/24 15:30 BP 140/62 H 04/26/24 15:30 Pulse Ox 97 04/26/24 15:30 O2 Del Method Room Air 04/26/24 15:30 BMI result Body Mass Index 26.3 Const: Other: female looking older than stated age, anxious Nutritional Appearance: average body habitus Orientation/consciousness: oriented to person Limitations: no limitations HEENT: Head: Yes normal to inspection Ears: external ears normal General nose exam: Normal external nose present Mouth: Normal oral and palatal mucosa present and oropharynx normal Throat: Yes posterior oropharynx normal Eyes: General: appearance normal, both eyes and all related structures Neck: Other: supple Neck: Yes normal visual inspection Chest: Chest palpation & inspection: normal inspection of the chest Resp: Auscultation: clear to auscultation bilaterally Cardio: Jugular venous distension: no JVD Rate: regular rate Rhythm: r egular rhythm Heart sounds: S1 normal heart sound present and S2 normal heart sound present GI: Inspection: Yes normal to inspection Palpation (GI): Soft to palpation, nontender and No hepatosplenomegaly present Auscultation: normal bowel sounds : General: Yes no CVA tenderness Back/Spine/Pelvis: Back: no CVA tenderness Skin: Other: superficial wound to left shoulder, no abscess no fistula Neuro: General: oriented to person Cranial nerves: Yes CN's II-XII intact bilaterally Motor exam (neuro): 5/5 motor strength present throughout S ensory Exam: No Sensory deficit (Neuro) Extrem: General: Yes normal to inspection Psych: Appearance: grossly normal Course Reevaluation(s) Reevaluation #1: will place patient in physician observation at 9:40am. The reason is that she will need time to assess her for a safe discharge plan Time: 09:41 Medications Administered Discontinued Medications Generic Name Dose Route Start Last Admin Trade Name Freq PRN Reason Stop Dose Admin Acetaminophen 975 mg 04/26/24 07:37 04/26/24 07:51 Acetaminophen 325 Mg Tablet PO 04/26/24 07:38 975 mg ONCE ONE Administration Bacitracin 1 appl 04/26/24 09:39 04/26/24 09:42 Bacitracin Oint 0.9 Gm Packet TOPICAL 04/26/24 09:40 1 appl ONCE ONE Administration Protocol Medical Decision Making Differential Diagnosis Differential Diagnoses: The differential diagnosis associated with the presentation includes (cellulitis, abscess, dementia, myalgias) Admission/Observation Consideration of admission/observation: Escalation of care including admission/observation considered (upon arrival patient considered for admission) Lab Data MDM Lab Attestation statement: I reviewed the patient's lab results. (patient with prior ESBL sensitive to macrobid. At this time she has no urinary complaints) 04/26/24 07:51 04/26/24 07:51 Labs: Lab Results 04/26/24 04/26/24 04/26/24 Range/Units 07:34 07:51 08:20 WBC 4.0 L (4.8-10.8) X10*3/uL RBC 3.59 L (4.20-5.50) X10*6/uL Hgb 11.0 L (12.0-16.0) g/dl Hct 33.1 L (37.0-47.0) % MCV 92.2 (80.0-98.0) fL MCH 30.6 (27.0-33.0) pg MCHC 33.2 (31.0-35.0) g/dl RDW 13.8 (11.0-16.0) % Plt Count 254 (160-400) X10*3/uL MPV 8.8 L (9.4-12.3) fL Immature Gran % (Auto) 2.3 H (0.0-0.4) % Neut % (Auto) 44.1 L (45-73) % Lymph % (Auto) 35.4 (20-40) % Davis % (Auto) 12.1 H (2-11) % Eos % (Auto) 5.3 H (0-4) % Baso % (Auto) 0.8 (0-2) % Lymph # (Auto) 1.4 (1.2-4.9) X10*3/uL Davis # (Auto) 0.5 (0.1-1.2) X10*3/uL Eos # (Auto) 0.2 (0.0-0.4) X10*3/uL Baso # (Auto) 0.0 (0.0-0.2) X10*3/uL Abs Immat Gran (auto) 0.09 H (0.00-0.03) X10*3/uL Absolute Neuts (auto) 1.8 L (2.0-8.3) x10*3/uL Absolute Nucleated RBC 0.000 (0.0-0.012) X10*3/uL Nucleated RBC % (auto) 0.0 (0.0-0.2) /100WBC Sodium 135 (135-145) mmol/L Potassium 4.9 D (3.3-5.1) mmol/L Chloride 104 (96-108) mmol/L Carbon Dioxide 22 (22-29) mmol/L Anion Gap 14 (12-20) BUN 21 H (9-16) mg/dL Creatinine 0.95 (0.5-1.4) mg/dL Estim Creat Clear Calc 50.7 Estimated GFR 58 Random Glucose 152 H (60-115) mg/dL Calcium 9.9 D (8.4-10.2) mg/dL Total Bilirubin 0.2 (0.0-1.0) mg/dL AST 17 (5-31) U/L ALT 6 (0-31) U/L Alkaline Phosphatase 96 (39-117) U/L Total Protein 7.6 (6.5-8.0) g/dL Albumin 3.7 (3.5-5.0) g/dL Urine Color Yellow Urine Appearance Cloudy Urine pH 6.5 (5.0-9.0) Ur Specific [place] 1.015 (1.005-1.025) Urine Protein Negative (Neg-Trace) mg/dL Urine Glucose (UA) Negative (Negative) mg/dL Urine Ketones Negative (Negative) mg/dL Urine Blood Small (1+) H (Negative) Urine Nitrite Positive H (Negative) Ur Leukocyte Esterase Large (3+) H (Negative) Urine RBC 6-10 H (0-2) /HPF Urine WBC >50 H (0-5) /HPF Ur Squamous Epith Cells 3-5 (0-2) /HPF Urine Bacteria 4+ (None Seen) Hyaline Casts 0-2 (0-2) /LPF COVID-19 (ZAKIA) Negative (Negative) COVID-19 Clin Com See Note Independent Historian Clinical information obtained from an independent historian. History obtained from or confirmed by: EMS External Record Review External record reviewed: Prior outpatient labs Prescription Management I considered prescription management with: Antibiotic (will await urine culture results before starting abx for likely colonized urine) Chronic Conditions Patient?s care impacted by: Diabetes and Other (dementia) Social Determinants Patient?s care significantly limited by Social Determinants of Health including: Alcoholism and drug addiction in family Discharge Plan Discharge Clinical Impression: Dementia, Korsakoff disease Patient Disposition: Still a Patient Transfer Details: HOME W/VNA Prescriptions: No Action multivitamin [Daily-Cony] Tablet 1 tab PO DAILY 30 Days Qty: 30 0RF Rx Instructions: With Food baclofen 20 mg Tablet 20 mg PO DAILY PRN (Reason: Back Pain) 30 Days Qty: 30 0RF trazodone 50 mg tablet 1 tab PO BEDTIME PRN (Reason: insomnia) omeprazole 40 mg capsule,delayed release(DR/EC) 1 cap PO DAILY@0630 montelukast 10 mg tablet 1 tab PO BEDTIME pravastatin 20 mg tablet 1 tab PO BEDTIME metoprolol succinate 25 mg tablet extended release 24 hr 1 tab PO DAILY albuterol sulfate [Ventolin HFA] 90 mcg/actuation HFA aerosol inhaler 2 puff INHALATION Q4H PRN (Reason: Shortness Of Breath Or Wheezing) aspirin 81 mg tablet,delayed release (DR/EC) 1 tab PO DAILY folic acid 1 mg tablet 1 mg PO DAILY fluticasone propion-salmeterol [Advair Diskus] 250-50 mcg/dose blister with device 1 ea INHALATION BID sennosides [senna] 8.6 mg tablet 8.6 mg PO BID PRN (Reason: constipation) ondansetron HCl 4 mg tablet 4 mg PO BID PRN (Reason: nausea) acetaminophen 650 mg tablet extended release 1 tab PO Q8H PRN (Reason: pain) nicotine 14 mg/24 hr Patch 24 Hour 14 mg transdermal DAILY Qty: 30 0RF albuterol sulfate 2.5 mg /3 mL (0.083 %) solution for nebulization 2.5 mg inhalation Q4H PRN (Reason: Wheezing) famotidine 20 mg tablet 20 mg PO BID acamprosate 333 mg tablet,delayed release (DR/EC) 666 mg PO TID Referrals: [facility] [Outside] Name,MD Ryder [Primary Care Provider] - Print Language: Estonian
[2024-04-26 07:48] LABS: Appearance Urine Cloudy; Bacteria Urine 4+ (None Seen); Color Urine Yellow; Glucose Urine UA Negative (Negative); Hyaline Casts Urine 0-2 /LPF (0-2); Leukocyte Esterase Urine Large (3+) (Negative); Nitrite Urine Positive (Negative); PH 6.5 (5.0-9.0); Specific Gravity - Urine 1.015 (1.005-1.025); UACC Culture Trigger YES; UMIC TRIGGER UACC YES; Urine Blood Small (1+) (Negative); Urine Ketones Negative (Negative); Urine Protein Negative (Neg-Trace); WBC Urine >50 /HPF (0-5)
[2024-04-26] MEDS: Acetaminophen 325 MG TABLET 975 MG PO (07:51)
--- NOTE | 2024-04-26 07:51 | PC.NURSE ---
labs obtained/sent to lab by [facility]. pt c/o 07/06 left shoulder pain - medicated per nov. effectiveness pending. pt resting in no apparent distress. no sob/wob noted. respirations even/unlabored. plan of care ongoing.
[2024-04-26 08:02] LABS: MANUAL DIFF FLAG NO
[2024-04-26 08:03] LABS: Basophils Percent Auto 0.8 % (0-2); Eosinophils Absolute Auto 0.2 X10*3/uL (0.0-0.4); Eosinophils Percent Auto 5.3 % (0-4); Hematocrit 33.1 % (37.0-47.0); Imm Gran Abs Auto 0.09 X10*3/uL (0.00-0.03); Imm Gran Pct Auto 2.3 % (0.0-0.4); Lymphocytes Absolute Auto 1.4 X10*3/uL (1.2-4.9); Lymphocytes Percent Auto 35.4 % (20-40); Mean Corpuscular HGB Conc 33.2 g/dl (31.0-35.0); Mean Corpuscular Hemoglobin 30.6 pg (27.0-33.0); Mean Corpuscular Volume 92.2 fL (80.0-98.0); Mean Platelet Volume 8.8 fL (9.4-12.3); Monocytes Absolute Auto 0.5 X10*3/uL (0.1-1.2); Monocytes Percent Auto 12.1 % (2-11); Neutrophils Absolute Auto 1.8 x10*3/uL (2.0-8.3); Neutrophils Percent Auto 44.1 % (45-73); Platelet Count 254 X10*3/uL (160-400); Red Blood Count 3.59 X10*6/uL (4.20-5.50); Red Cell Distribution Width 13.8 % (11.0-16.0)
[2024-04-26 08:25] LABS: Alanine Aminotransferase 6 U/L (0-31); Albumin Level 3.7 g/dL (3.5-5.0); Alkaline Phosphatase 96 U/L (39-117); Anion Gap 14 (12-20); Aspartate Amino Transferase 17 U/L (5-31); Bilirubin Total 0.2 mg/dL (0.0-1.0); Blood Urea Nitrogen 21 mg/dL (9-16); Calcium 9.9 mg/dL (8.4-10.2); Carbon Dioxide 22 mmol/L (22-29); Chloride 104 mmol/L (96-108); Creatinine Clr Calc Pharmacy 50.7; Estimated Glomerular Filt Rate 58; Glucose Random 152 mg/dL (60-115); Potassium 4.9 mmol/L (3.3-5.1); Sodium 135 mmol/L (135-145); Total Protein 7.6 g/dL (6.5-8.0)
[2024-04-26 08:40] LABS: COVID-19 Test Negative (Negative); IDNOW Serial# 152EDE1D
[2024-04-26] MEDS: Bacitracin Oint 0.9 GM PACKET 1 APPL TOPICAL (09:42)
--- NOTE | 2024-04-26 09:48 | PC.NURSE ---
bacitracin applied to left shoulder by tech. pt tolerated well. redressed.
[2024-04-26 10:27] VITALS: BP 121/59; PULSE 63; RESP 16; O2SAT 99
[2024-04-26 12:58] VITALS: BP 117/54; PULSE 64; RESP 16; O2SAT 98
--- NOTE | 2024-04-26 13:28 | MHC.CM.ED ---
Received case management consult from Dr Mandujano. Patient came to the ER due to shoulder pain and chronic wound. Work up essentially negative. Patient is well known to CM due to frequent ER visits. Patient has an invoked HCP due to dementia. Patient is active with [facility]. Per Monserrat, at [facility], patient is active with 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 T/W spoke with patient's sig other/HCP, Juanjo via telephone at [phone]. Patient was at [facility] from 03/14-03/28. Juanjo feels patient can safely return home but not until tomorrow afternoon because Juanjo is busy cleaning the mess she made. [facility] booked for 04/[address] Mandujano aware. Continue to monitor for d/c needs.
[2024-04-26 15:30] VITALS: BP 140/62; PULSE 67; RESP 16; TEMP 36.9; O2SAT 97
[2024-04-26 16:33] VITALS: BP 153/68; PULSE 65; RESP 14; TEMP 36.3; O2SAT 99
--- NOTE | 2024-04-26 21:17 | PHA.MEDREC ---
Pharmacy Consult ? Medication Reconciliation Pharmacy has completed the medication reconciliation. Patient was here 03/14/24 and had a med rec completed. Used discharge packet and spoke to patient to confirm meds and she states no changes since last visit.
[2024-04-26] MEDS: traZODone HCL 25 MG HALFTAB PO (22:15)
[2024-04-27 01:13] VITALS: BP 146/66; PULSE 70; RESP 18; TEMP 36.8; O2SAT 99
[2024-04-27] MEDS: Acetaminophen 325 MG TABLET 650 MG PO (02:52)
[2024-04-27 05:57] VITALS: BP 138/75; PULSE 69; RESP 17; TEMP 37; O2SAT 99
[2024-04-27 06:00] VITALS: BP 147/54; PULSE 67; TEMP 36.8; O2SAT 100
[2024-04-27] MEDS: Nitrofurantoin Monohyd/M-Cryst 100 MG CAPSULE PO (10:30)
[2024-04-27 11:53] VITALS: BP 120/70; PULSE 67; RESP 14; TEMP 36.8; O2SAT 96
== END 2024-04-27 11:54 | disposition home or self-care (01) ==
PROVIDERS: Emergency Provider Emergency Medicine; PCP Internal Medicine Geriatric Medicine
DX: N39.0 Urinary tract infection, site not specified (principal); F03.90 Unspecified dementia, unspecified severity, without behavioral disturbance, psychotic disturbance, mood disturbance, and anxiety; F10.96 Alcohol use, unspecified with alcohol-induced persisting amnestic disorder; Y90.9 Presence of alcohol in blood, level not specified; M79.10 Myalgia, unspecified site; F17.210 Nicotine dependence, cigarettes, uncomplicated; Z79.899 Other long term (current) drug therapy; Z11.52 Encounter for screening for COVID-19
CPT/HCPCS: 36415; 80053; 81001; 85025; 87086; 87088; 87186; 87635; 99284

== ENCOUNTER 2024-05-20 08:43 | Emergency (ER) | payer OTHER, SELFPAY ==
[2024-05-20 08:51] VITALS: BP 110/55; BP 138/62; PULSE 70; PULSE 80; RESP 18; TEMP 36.8; O2SAT 97; BMI 23.3
--- NOTE | 2024-05-20 09:08 | ED.GENADULT ---
HPI - General Adult General Chief complaint: General Medical Stated complaint: SMALL PAINFUL BUMPS ON L SHOULDER PER EMS Time Seen by Provider: 05/20/24 09:04 Source: patient and EMS Mode of arrival: EMS Limitations: no limitations History of Present Illness ED Provider: Rickie Solis PA-C HPI narrative: 69 yo female with ETOH use disorder, Korsakoff disease, DM, hx ESBL UTI, hx left shoulder ulcer who presents to the ER from home for evaluation acute on chronic left shoulder pain. She reports the pain is 10/10. She has 2 pustules to the area that drain blood and pus per her report. She states the areas are more tender than usual. The drainage is worse the last couple of days. She denies any fevers. No other lesions. Patient was admitted to the hospital in February per review of records. She Wound Care was consulted but she can not recall what they did. She states she has not been to the wound clinic for these lesions and she has not seen her doctor about them MD complaint: Left shoulder lesions Onset (ago): month(s) Location: left and upper extremity Radiation: non-radiation Severity: severe Severity scale (1-10): 10 Quality: sharp Pain Consistency: constant Relieving factors: none Exacerbating factors: movement Associated symptoms: denies other symptoms Treatments prior to arrival: none Related Data Home Medications ?Medication ?Instructions ?Recorded ?Confirmed albuterol sulfate 90 mcg/actuation 2 puff inhalation Q4H PRN 11/26/22 04/26/24 aerosol inhaler (Ventolin HFA) Shortness Of Breath Or Wheezing aspirin 81 mg tablet,delayed 1 tab PO DAILY 11/26/22 04/26/24 release folic acid 1 mg tablet 1 mg PO DAILY 11/26/22 04/26/24 metoprolol succinate 25 mg 1 tab PO DAILY 11/26/22 04/26/24 tablet,extended release 24 hr montelukast 10 mg tablet 1 tab PO BEDTIME 11/26/22 04/26/24 omeprazole 40 mg capsule,delayed 1 cap PO DAILY@0630 11/26/22 04/26/24 release pravastatin 20 mg tablet 1 tab PO BEDTIME 11/26/22 04/26/24 trazodone 50 mg tablet 1 tab PO BEDTIME PRN insomnia 11/26/22 04/26/24 fluticasone 250 mcg-salmeterol 50 1 inh inhalation BID 01/31/23 04/26/24 mcg/dose blistr powdr for inhalation (Advair Diskus) ondansetron HCl 4 mg tablet 4 mg PO BID PRN nausea 01/31/23 04/26/24 sennosides 8.6 mg tablet (senna) 8.6 mg PO BID PRN constipation 01/31/23 04/26/24 acamprosate 333 mg tablet,delayed 666 mg PO TID 05/25/23 04/26/24 release albuterol sulfate 2.5 mg/3 mL 2.5 mg inhalation Q4H PRN Wheezing 05/25/23 04/26/24 (0.083 %) solution for nebulization famotidine 20 mg tablet 20 mg PO BID 05/25/23 04/26/24 acetaminophen 650 mg 1 tab PO Q8H PRN pain 03/10/24 04/26/24 tablet,extended release Previous Rx's ?Medication ?Instructions ?Recorded baclofen 20 mg tablet 20 mg PO DAILY PRN Back Pain 30 04/29/22 days #30 tabs multivitamin (Daily-Cony tablet) 1 tab PO DAILY 30 days #30 tabs 04/29/22 nicotine 14 mg/24 hr daily 14 mg transdermal DAILY #30 ea 03/14/24 transdermal patch nitrofurantoin 100 mg PO Q12H 7 days #14 caps 04/27/24 monohydrate/macrocrystals 100 mg capsule (Macrobid) cephalexin 500 mg capsule 500 mg PO Q6H 7 days #28 caps 05/20/24 doxycycline hyclate 100 mg tablet 100 mg PO BID #14 tabs 05/20/24 Allergies Allergy/AdvReac Type Severity Reaction Status Date / Time fluticasone Allergy Unknown Verified 05/20/24 08:57 [From Advair Diskus] salmeterol Allergy Unknown Verified 05/20/24 08:57 [From Advair Diskus] paroxetine [From Paxil] AdvReac Intermediate Nausea and Verified 05/20/24 08:57 Vomiting Review of Systems Review of Systems: Yes all other systems are reviewed and are negative PMFSH Past Medical History Medical History COPD (chronic obstructive pulmonary disease) Effusion of shoulder joint, left Mass of joint of left shoulder Cannabis use disorder, moderate, dependence Dementia Korsakoff disease Chronic hyponatremia Schizophrenia Congestive heart failure Bipolar 1 disorder Osteoarthritis COPD (chronic obstructive pulmonary disease) Hypertension Diabetes Coronary artery disease Sleep apnea Alcohol use disorder Surgical History Hx of appendectomy Family History Family History Sister Breast cancer, Onset Age: 40 Sister Breast cancer, Onset Age: 50 Social History Social History Household Members: Spouse Household Members Other:: 2 Housing: Apartment Do you presently have visiting nurse or other home services: Yes Unable to assess alcohol history related to: Unknown Alcohol intake: never Comment: 1:1 at bedside Patient Tobacco Use Status: Current everyday Tobacco user Tobacco use type: Cigarette Cigarette Packs Per Day: 0.5 Cigarettes Per Day: 10.0 Years Smoked: 53 e-Cigarette/Vaping Use: Never Used Second Hand Smoke Exposure: No Substance Use Type: Marijuana Advance Directives: Yes Advance Directives on File: Yes Advance Directives Date on File: 10/10/20 Do you have a plan to hurt others: No Plan service: No Current occupational status: unemployed, disabled and other Sexual orientation: Straight/Heterosexual Physical Exam ED Vital Signs: Vital Signs - 24 hr 05/20/24 08:51 05/20/24 11:34 Temperature 98.2 F 96.8 F Pulse Rate 70 73 Respiratory Rate 18 18 Blood Pressure 110/55 L 125/57 L Pulse Oximetry 97 98 Oxygen Delivery Method Room Air Room Air BMI result Body Mass Index 23.3 Appearance: Alert elderly female lying in bed. Oriented X3. No acute distress. HEENT: normal inspection CVS: Normal heart rate and rhythm. Pulses normal. Respiratory: No respiratory distress. Skin: Skin warm and dry. Normal skin color. Normal skin turgor. No rashes. Extremities: Left shoulder with to proximally 1 cm raised, tender, erythematous bulla/pustules with clear serosanguineous drainage. Overlying a scar. Limited range of motion of the shoulder due to pain. No warmth or erythema of the joint. Neuro: Oriented X 3. No motor deficit. No sensory deficit. Procedures Abscess I/D Site: upper extremity Side (if applicable): left Technique: needle aspiration Sent for culture/gram staining?: No Irrigation: Yes Packing used?: none Medical Decision Making Medical Decision Making MDM Narrative: 69-year-old female presents to the ER for evaluation of acute on chronic left shoulder pain. She has tender pustules on the area. An 18 gauge needle was used to drain yellowish/brownish, clear fluid. Wounds have been present for months. Patient will need to be seen by her PCP and Wound Clinic for further evaluation and treatment. Will prescribe antibiotics for the lesions. She is stable for discharge home with outpatient follow-up. Differential Diagnosis Differential Diagnoses: The differential diagnosis associated with the presentation includes Abscess, bulla, folliculitis, ulcer, autoimmune disorder External Record Review External record reviewed: Outpatient record, Prior outpatient labs and Prior outpatient radiology Tests considered The following testing was considered but not selected: X-ray of the shoulder considered however low clinical suspicion for musculoskeletal process Prescription Management I considered prescription management with: Pain Medication and Antibiotic Chronic Conditions Patient?s care impacted by: Other (Alcohol use, Korsakoff dementia) Social Determinants Patient?s care significantly limited by Social Determinants of Health including: Other Social Determinant of Health (Lack of transportation to medical care) Critical Care Time Critical Care Time Critical Care Time: No Discharge Plan Discharge Clinical Impression: Pustule Patient Disposition: Home, Self-Care Instructions: Abscess (ED) Additional Instructions: Take the prescribed antibiotics as directed, complete the entire course and do not miss any doses use warm compresses to the area 3 times per day Recommend following up with the Wound Clinic - call for an appointment Follow up with your doctor as well If you develop new or worsening symptoms call 911 or come back to the ER for further evaluation. Prescriptions: New doxycycline hyclate 100 mg tablet 100 mg PO BID Qty: 14 0RF cephalexin 500 mg capsule 500 mg PO Q6H 7 Days Qty: 28 0RF No Action multivitamin [Daily-Cony] Tablet 1 tab PO DAILY 30 Days Qty: 30 0RF Rx Instructions: With Food baclofen 20 mg Tablet 20 mg PO DAILY PRN (Reason: Back Pain) 30 Days Qty: 30 0RF trazodone 50 mg tablet 1 tab PO BEDTIME PRN (Reason: insomnia) omeprazole 40 mg capsule,delayed release(DR/EC) 1 cap PO DAILY@0630 montelukast 10 mg tablet 1 tab PO BEDTIME pravastatin 20 mg tablet 1 tab PO BEDTIME metoprolol succinate 25 mg tablet extended release 24 hr 1 tab PO DAILY albuterol sulfate [Ventolin HFA] 90 mcg/actuation HFA aerosol inhaler 2 puff INHALATION Q4H PRN (Reason: Shortness Of Breath Or Wheezing) aspirin 81 mg tablet,delayed release (DR/EC) 1 tab PO DAILY folic acid 1 mg tablet 1 mg PO DAILY fluticasone propion-salmeterol [Advair Diskus] 250-50 mcg/dose blister with device 1 inh INHALATION BID sennosides [senna] 8.6 mg tablet 8.6 mg PO BID PRN (Reason: constipation) ondansetron HCl 4 mg tablet 4 mg PO BID PRN (Reason: nausea) acetaminophen 650 mg tablet extended release 1 tab PO Q8H PRN (Reason: pain) nicotine 14 mg/24 hr Patch 24 Hour 14 mg transdermal DAILY Qty: 30 0RF albuterol sulfate 2.5 mg /3 mL (0.083 %) solution for nebulization 2.5 mg inhalation Q4H PRN (Reason: Wheezing) famotidine 20 mg tablet 20 mg PO BID acamprosate 333 mg tablet,delayed release (DR/EC) 666 mg PO TID nitrofurantoin monohyd/m-cryst [Macrobid] 100 mg capsule 100 mg PO Q12H 7 Days Qty: 14 0RF Rx Instructions: must administer with a meal/food [place] [facility] [place] Group] Name,MD Ryder [Primary Care Provider] - Print Language: Yemeni
[2024-05-20 11:34] VITALS: BP 125/57; PULSE 73; RESP 18; TEMP 36; O2SAT 98
[2024-05-20 16:49] VITALS: BP 125/57; PULSE 73; RESP 18; TEMP 36; O2SAT 98
== END 2024-05-20 16:50 | disposition home or self-care (01) ==
PROVIDERS: Emergency Provider Emergency Medicine; PCP Internal Medicine Geriatric Medicine
DX: L08.9 Local infection of the skin and subcutaneous tissue, unspecified (principal); F17.210 Nicotine dependence, cigarettes, uncomplicated; E11.9 Type 2 diabetes mellitus without complications; I10 Essential (primary) hypertension; Z79.02 Long term (current) use of antithrombotics/antiplatelets; Z79.899 Other long term (current) drug therapy
CPT/HCPCS: 10160; 99283; 99284

== ENCOUNTER 2024-06-18 15:14 | Emergency (ER) | payer OTHER, SELFPAY ==
[2024-06-18 15:28] VITALS: BP 122/64; BP 150/82; PULSE 103; PULSE 89; RESP 18; TEMP 36.6; O2SAT 95; O2SAT 97; BMI 25.8
[2024-06-18 16:01] LABS: MANUAL DIFF FLAG NO
[2024-06-18 16:03] LABS: Basophils Percent Auto 0.4 % (0-2); Eosinophils Absolute Auto 0.1 X10*3/uL (0.0-0.4); Eosinophils Percent Auto 1.3 % (0-4); Hemoglobin 11.3 g/dl (12.0-16.0); Imm Gran Abs Auto 0.06 X10*3/uL (0.00-0.03); Imm Gran Pct Auto 1.1 % (0.0-0.4); Lymphocytes Percent Auto 36.9 % (20-40); Mean Corpuscular HGB Conc 33.2 g/dl (31.0-35.0); Mean Corpuscular Hemoglobin 29.4 pg (27.0-33.0); Mean Corpuscular Volume 88.5 fL (80.0-98.0); Mean Platelet Volume 8.6 fL (9.4-12.3); Monocytes Absolute Auto 0.6 X10*3/uL (0.1-1.2); Monocytes Percent Auto 11.8 % (2-11); Neutrophils Absolute Auto 2.6 x10*3/uL (2.0-8.3); Neutrophils Percent Auto 48.5 % (45-73); Platelet Count 252 X10*3/uL (160-400); Red Blood Count 3.84 X10*6/uL (4.20-5.50); Red Cell Distribution Width 14.5 % (11.0-16.0); White Blood Count 5.4 X10*3/uL (4.8-10.8)
[2024-06-18 16:25] LABS: Alanine Aminotransferase 8 U/L (0-31); Albumin Level 3.6 g/dL (3.5-5.0); Alkaline Phosphatase 92 U/L (39-117); Anion Gap 13 (12-20); Aspartate Amino Transferase 20 U/L (5-31); Bilirubin Total 0.2 mg/dL (0.0-1.0); Blood Urea Nitrogen 15 mg/dL (9-16); Carbon Dioxide 25 mmol/L (22-29); Chloride 102 mmol/L (96-108); Creatinine Clr Calc Pharmacy 46.2; Estimated Glomerular Filt Rate 47; Glucose Random 118 mg/dL (60-115); Magnesium 2.2 mg/dL (1.6-2.6); Potassium 4.7 mmol/L (3.3-5.1); Sodium 135 mmol/L (135-145); Total Protein 7.1 g/dL (6.5-8.0)
--- NOTE | 2024-06-18 17:53 | ED_ITS ---
HPI - General Adult General Chief complaint: Behavioral Concerns Stated complaint: PD reports agitation, HCP wants med eval Time Seen by Provider: 06/18/24 17:10 Source: patient, RN notes reviewed, old records reviewed and site interpreter Mode of arrival: EMS Limitations: language barrier ([facility] Consultant was present but the patient chose to speak in Guamanian) History of Present Illness ED Provider: Robyn HPI narrative: 69-year-old female past medical history significant for polysubstance abuse, alcohol use disorder, COPD, diabetes, schizophrenia, left shoulder mass presents for evaluation of agitation. Apparently the patient was at home with her pain The police were called by her because the patient was agitated. The patient reportedly through bananas at her The patient she states that ?we both drink alcohol, but he has withdrawal symptoms and shakes. When he does not feel well he gets mad and yells at me. ? The patient states that she feels well, she has no complaints Denies any fevers, chills She reports that she has been taking all of your medications as prescribed She is currently calm and cooperative Related Data Home Medications ?Medication ?Instructions ?Recorded ?Confirmed albuterol sulfate 90 mcg/actuation 2 puff inhalation Q4H PRN 11/26/22 04/26/24 aerosol inhaler (Ventolin HFA) Shortness Of Breath Or Wheezing aspirin 81 mg tablet,delayed 1 tab PO DAILY 11/26/22 04/26/24 release folic acid 1 mg tablet 1 mg PO DAILY 11/26/22 04/26/24 metoprolol succinate 25 mg 1 tab PO DAILY 11/26/22 04/26/24 tablet,extended release 24 hr montelukast 10 mg tablet 1 tab PO BEDTIME 11/26/22 04/26/24 omeprazole 40 mg capsule,delayed 1 cap PO DAILY@0630 11/26/22 04/26/24 release pravastatin 20 mg tablet 1 tab PO BEDTIME 11/26/22 04/26/24 trazodone 50 mg tablet 1 tab PO BEDTIME PRN insomnia 11/26/22 04/26/24 fluticasone 250 mcg-salmeterol 50 1 inh inhalation BID 01/31/23 04/26/24 mcg/dose blistr powdr for inhalation (Advair Diskus) ondansetron HCl 4 mg tablet 4 mg PO BID PRN nausea 01/31/23 04/26/24 sennosides 8.6 mg tablet (senna) 8.6 mg PO BID PRN constipation 01/31/23 04/26/24 acamprosate 333 mg tablet,delayed 666 mg PO TID 05/25/23 04/26/24 release albuterol sulfate 2.5 mg/3 mL 2.5 mg inhalation Q4H PRN Wheezing 05/25/23 04/26/24 (0.083 %) solution for nebulization famotidine 20 mg tablet 20 mg PO BID 05/25/23 04/26/24 acetaminophen 650 mg 1 tab PO Q8H PRN pain 03/10/24 04/26/24 tablet,extended release Previous Rx's ?Medication ?Instructions ?Recorded baclofen 20 mg tablet 20 mg PO DAILY PRN Back Pain 30 04/29/22 days #30 tabs multivitamin (Daily-Cony tablet) 1 tab PO DAILY 30 days #30 tabs 04/29/22 nicotine 14 mg/24 hr daily 14 mg transdermal DAILY #30 ea 03/14/24 transdermal patch nitrofurantoin 100 mg PO Q12H 7 days #14 caps 04/27/24 monohydrate/macrocrystals 100 mg capsule (Macrobid) cephalexin 500 mg capsule 500 mg PO Q6H 7 days #28 caps 05/20/24 doxycycline hyclate 100 mg tablet 100 mg PO BID #14 tabs 05/20/24 Allergies Allergy/AdvReac Type Severity Reaction Status Date / Time fluticasone Allergy Unknown Verified 06/18/24 15:30 [From Advair Diskus] salmeterol Allergy Unknown Verified 06/18/24 15:30 [From Advair Diskus] paroxetine [From Paxil] AdvReac Intermediate Nausea and Verified 06/18/24 15:30 Vomiting Review of Systems 2 Constitutional: Constitutional: Denies body ache(s), Denies chills, Denies fever(s) and Denies frequent falls Eyes: Eyes: Denies blurry vision ENT: Denies sore throat Cardiovascular: Cardiovascular: Denies chest pain and Denies dyspnea Respiratory: Respiratory: Denies cough and Denies dyspnea Gastrointestinal: Gastrointestinal: Denies abdominal pain and Denies vomiting Musculoskeletal: Musculoskeletal: Denies back pain Neurologic: Denies frequent falls Psychiatric: Psychiatric: Denies anxiety, Denies depression, Denies auditory hallucinations, Denies visual hallucinations, Denies homicidal ideation and Denies suicidal ideation PMFSH Past Medical History Medical History COPD (chronic obstructive pulmonary disease) Effusion of shoulder joint, left Mass of joint of left shoulder Cannabis use disorder, moderate, dependence Dementia Korsakoff disease Chronic hyponatremia Schizophrenia Congestive heart failure Bipolar 1 disorder Osteoarthritis COPD (chronic obstructive pulmonary disease) Hypertension Diabetes Coronary artery disease Sleep apnea Alcohol use disorder Surgical History Hx of appendectomy Family History Family History Sister Breast cancer, Onset Age: 40 Sister Breast cancer, Onset Age: 50 Social History Social History Household Members: Spouse Household Members Other:: 2 Housing: Apartment Do you presently have visiting nurse or other home services: Yes Unable to assess alcohol history related to: Unknown Alcohol intake: never Comment: 1:1 at bedside Patient Tobacco Use Status: Current everyday Tobacco user Tobacco use type: Cigarette Cigarette Packs Per Day: 0.5 Cigarettes Per Day: 10.0 Years Smoked: 53 e-Cigarette/Vaping Use: Never Used Second Hand Smoke Exposure: No Substance Use Type: Marijuana Advance Directives: Yes Advance Directives on File: Yes Advance Directives Date on File: 10/10/20 Do you have a plan to hurt others: No Plan service: No Current occupational status: unemployed, disabled and other Sexual orientation: Straight/Heterosexual Physical Exam ED Vital Signs: Vital Signs - 24 hr 06/18/24 15:28 06/18/24 18:10 06/18/24 22:45 Temperature 97.9 F 98.7 F 98.4 F Pulse Rate 89 69 77 Respiratory Rate 18 16 20 Blood Pressure 150/82 H 162/81 H 138/78 Pulse Oximetry 95 97 96 Oxygen Delivery Method Room Air Room Air Room Air BMI result Body Mass Index 25.8 Const General: healthy appearing, comfortable, no acute distress, alert and awake Nutritional Appearance: well nourished Orientation/consciousness: patient oriented x3 HENMT Head: Yes normocephalic and Yes atraumatic Eyes Eyelids: Yes eyelids normal Conjunctivae: conjunctivae normal Sclerae: sclerae normal Corneas: corneas normal Pupils: Equal, round and reactive pupils present EOM: EOMs intact bilaterally Neck Neck: Yes full ROM Resp Effort & Inspection: normal respiratory effort, able to speak in complete sentences and not labored GI Inspection: No distended Palpation (GI): Soft to palpation, not firm, nontender, no guarding and not rigid Skin General skin exam: elasticity normal Neuro General: patient oriented x3 Cranial nerves: Yes Equal, round and reactive pupils present and Yes Bilaterally intact EOM present Cognition (Neuro): normal cognition Extrem Other: Moving all extremities well without any obvious deformities Course Reevaluation(s) Reevaluation #1: Patient is seen by the care team, unable to get collateral from the , the patient will be a follow up in the morning. Physician observation starts now Time: 23:54 Medical Decision Making Medical Decision Making [facility] Narrative: 69-year-old female with past medical history as documented above presents for evaluation of agitation. The patient is common cooperative, she offers no somatic complaints. She has a reassuring physical exam, no neuro deficits. She is answering questions appropriately, her vital signs are significant for a slight hypertension. Otherwise vitals are within normal limits, her labs are significant for a mild normocytic anemia which is consistent with a baseline, she has no leukocytosis. Chemistries have no concerning abnormalities. Glucose is elevated to 118, this is a random draw. She has no electrolyte abnormalities. Plan for care team consult for further evaluation of decompensated psychiatric illness Differential Diagnosis Differential Diagnoses: The differential diagnosis associated with the presentation includes Schizophrenia Bipolar disorder Agitation UTI Lab Data [facility] Lab Attestation statement: I reviewed the patient's lab results. 06/18/24 15:56 06/18/24 15:56 Labs: Lab Results 06/18/24 06/18/24 Range/Units 15:56 17:48 WBC 5.4 (4.8-10.8) X10*3/uL RBC 3.84 L (4.20-5.50) X10*6/uL Hgb 11.3 L (12.0-16.0) g/dl Hct 34.0 L (37.0-47.0) % MCV 88.5 (80.0-98.0) fL MCH 29.4 (27.0-33.0) pg MCHC 33.2 (31.0-35.0) g/dl RDW 14.5 (11.0-16.0) % Plt Count 252 (160-400) X10*3/uL MPV 8.6 L (9.4-12.3) fL Immature Gran % (Auto) 1.1 H (0.0-0.4) % Neut % (Auto) 48.5 (45-73) % Lymph % (Auto) 36.9 (20-40) % [place] % (Auto) 11.8 H (2-11) % Eos % (Auto) 1.3 (0-4) % Baso % (Auto) 0.4 (0-2) % Lymph # (Auto) 2.0 (1.2-4.9) X10*3/uL [place] # (Auto) 0.6 (0.1-1.2) X10*3/uL Eos # (Auto) 0.1 (0.0-0.4) X10*3/uL Baso # (Auto) 0.0 (0.0-0.2) X10*3/uL Abs Immat Gran (auto) 0.06 H (0.00-0.03) X10*3/uL Absolute Neuts (auto) 2.6 (2.0-8.3) x10*3/uL Absolute Nucleated RBC 0.000 (0.0-0.012) X10*3/uL Nucleated RBC % (auto) 0.0 (0.0-0.2) /100WBC Sodium 135 (135-145) mmol/L Potassium 4.7 (3.3-5.1) mmol/L Chloride 102 (96-108) mmol/L Carbon Dioxide 25 (22-29) mmol/L Anion Gap 13 (12-20) BUN 15 (9-16) mg/dL Creatinine 1.14 (0.5-1.4) mg/dL Estim Creat Clear Calc 46.2 Estimated GFR 47 Random Glucose 118 H (60-115) mg/dL Calcium 10.0 (8.4-10.2) mg/dL Magnesium 2.2 (1.6-2.6) mg/dL Total Bilirubin 0.2 (0.0-1.0) mg/dL AST 20 (5-31) U/L ALT 8 (0-31) U/L Alkaline Phosphatase 92 (39-117) U/L Total Protein 7.1 (6.5-8.0) g/dL Albumin 3.6 (3.5-5.0) g/dL Urine Color Yellow Urine Appearance Clear Urine pH 5.5 (5.0-9.0) Ur Specific [place] 1.015 (1.005-1.025) Urine Protein Negative (Neg-Trace) mg/dL Urine Glucose (UA) Negative (Negative) mg/dL Urine Ketones Negative (Negative) mg/dL Urine Blood Trace H (Negative) Urine Nitrite Negative (Negative) Ur Leukocyte Esterase Trace H (Negative) Urine RBC 0-2 (0-2) /HPF Urine WBC 0-5 (0-5) /HPF Ur Squamous Epith Cells 11-20 (0-2) /HPF Urine Bacteria Trace (None Seen) Hyaline Casts 0-2 (0-2) /LPF Urine Opiates Screen Not Detected (Not Detect) Ur Buprenorphine Scrn Not Detected (Not Detect) ng/mL Ur Oxycodone Screen Not Detected (Not Detect) ng/mL Urine Methadone Screen Not Detected (Not Detect) ng/mL Urine Fentanyl Screen Not Detected (Not Detect) Ur Barbiturates Screen Not Detected (Not Detect) Ur Phencyclidine Scrn Not Detected (Not Detect) Ur Amphetamines Screen Not Detected (Not Detect) U Benzodiazepines Scrn Not Detected (Not Detect) Urine Cocaine Screen Not Detected (Not Detect) U Marijuana (THC) Screen POSITIVE H (Not Detect) Ethyl Alcohol < 10 mg/dL Discharge Plan Discharge Clinical Impression: Agitation Patient Disposition: Still a Patient Prescriptions: No Action multivitamin [Daily-Cony] Tablet 1 tab PO DAILY 30 Days Qty: 30 0RF Rx Instructions: With Food baclofen 20 mg Tablet 20 mg PO DAILY PRN (Reason: Back Pain) 30 Days Qty: 30 0RF trazodone 50 mg tablet 1 tab PO BEDTIME PRN (Reason: insomnia) omeprazole 40 mg capsule,delayed release(DR/EC) 1 cap PO DAILY@0630 montelukast 10 mg tablet 1 tab PO BEDTIME pravastatin 20 mg tablet 1 tab PO BEDTIME metoprolol succinate 25 mg tablet extended release 24 hr 1 tab PO DAILY albuterol sulfate [Ventolin HFA] 90 mcg/actuation HFA aerosol inhaler 2 puff INHALATION Q4H PRN (Reason: Shortness Of Breath Or Wheezing) aspirin 81 mg tablet,delayed release (DR/EC) 1 tab PO DAILY folic acid 1 mg tablet 1 mg PO DAILY fluticasone propion-salmeterol [Advair Diskus] 250-50 mcg/dose blister with device 1 inh INHALATION BID sennosides [senna] 8.6 mg tablet 8.6 mg PO BID PRN (Reason: constipation) ondansetron HCl 4 mg tablet 4 mg PO BID PRN (Reason: nausea) acetaminophen 650 mg tablet extended release 1 tab PO Q8H PRN (Reason: pain) nicotine 14 mg/24 hr Patch 24 Hour 14 mg transdermal DAILY Qty: 30 0RF albuterol sulfate 2.5 mg /3 mL (0.083 %) solution for nebulization 2.5 mg inhalation Q4H PRN (Reason: Wheezing) famotidine 20 mg tablet 20 mg PO BID acamprosate 333 mg tablet,delayed release (DR/EC) 666 mg PO TID nitrofurantoin monohyd/m-cryst [Macrobid] 100 mg capsule 100 mg PO Q12H 7 Days Qty: 14 0RF Rx Instructions: must administer with a meal/food doxycycline hyclate 100 mg tablet 100 mg PO BID Qty: 14 0RF cephalexin 500 mg capsule 500 mg PO Q6H 7 Days Qty: 28 0RF Print Language: Portuguese
[2024-06-18 17:57] LABS: Appearance Urine Clear; Color Urine Yellow; Glucose Urine UA Negative (Negative); Leukocyte Esterase Urine Trace (Negative); Nitrite Urine Negative (Negative); PH 5.5 (5.0-9.0); Specific Gravity - Urine 1.015 (1.005-1.025); UMIC TRIGGER UACC YES; Urine Blood Trace (Negative); Urine Ketones Negative (Negative); Urine Protein Negative (Neg-Trace)
[2024-06-18 18:02] LABS: Bacteria Urine Trace (None Seen); Hyaline Casts Urine 0-2 /LPF (0-2); RBC Urine 0-2 /HPF (0-2); WBC Urine 0-5 /HPF (0-5)
[2024-06-18 18:09] LABS: Amphetamine Screen Urine Not Detected (Not Detect); Barbiturates, Urine Not Detected (Not Detect); Benzodiazepines Screen Urine Not Detected (Not Detect); Buprenorphine Scr Not Detected (Not Detect); Cannabinoid Screen Urine POSITIVE (Not Detect); Cocaine Screen Urine Not Detected (Not Detect); Fentanyl, urine Not Detected (Not Detect); Methadone Screen, Urine Not Detected (Not Detect); Opiate Screen Urine Not Detected (Not Detect); Oxycodone Screen Urine Not Detected (Not Detect); Phencyclidine Screen Urine Not Detected (Not Detect)
[2024-06-18 18:10] VITALS: BP 162/81; PULSE 69; RESP 16; TEMP 37.1; O2SAT 97
[2024-06-18 19:32] LABS: Ethanol < 10 mg/dL
--- NOTE | 2024-06-18 22:23 | PC.NURSE ---
CT with pt. Plan of care ongoing.
[2024-06-18 22:45] VITALS: BP 138/78; PULSE 77; RESP 20; TEMP 36.9; O2SAT 96
[2024-06-19] MEDS: traZODone HCL 50 MG TABLET PO ×2 (03:13→23:41)
--- NOTE | 2024-06-19 03:16 | PC.NURSE ---
Pt requested and given meds for sleep. Plan of care ongoing.
--- NOTE | 2024-06-19 07:00 | PC.NURSE ---
Report taken from Zulma Smiley RN
--- NOTE | 2024-06-19 08:13 | MHC.CARE ---
T/W attempted to call Pt's boyfriend to talk about the incident which brought her into the ED. His phone does not accept phone calls at this time. T/W spoke with Pt who continues to not meet the criteria for a higher level of care at this time. Pt was brought in by PD only secondary to an argument with her boyfriend. Pt is on the lease at the apartment and is able to return home today despite not making collateral contact with boyfriend. Pt needs an ambulance ride home secondary to being in a wheelchair. Dr. Chaudhari is in agreement with this plan and will be discharging the Pt shortly. ED will arrange transportation.
--- NOTE | 2024-06-19 09:58 | PC.NURSE ---
Incontinence care provided to pt. Full bed change
--- NOTE | 2024-06-19 10:05 | PC.NURSE ---
Pt.'s spouse, Juanjo Whyte, called. [facility] stating that he is requesting to place pt. in alf for 15 days and would like to speak with case management. When this RN asked Juanjo for the best phone number to reach him on, Juanjo states that he does not have a phone right now and we cannot reach him again. States that the phone he's calling on at this time is not his. Notifying case management
--- NOTE | 2024-06-19 10:35 | PC.NURSE ---
Dedra cake froster aware that pt.'s spouse is refusing to pick pt. up and is requesting 15 day longterm placement.
[2024-06-19 12:13] VITALS: BP 143/78; PULSE 77; RESP 16; TEMP 36.9; O2SAT 95
[2024-06-19 13:11] VITALS: BP 190/80; PULSE 80; RESP 18; TEMP 36.9; O2SAT 94
--- NOTE | 2024-06-19 13:23 | PC.NURSE ---
assumed care of patient, respirations equal and unlabored, skin noted to be dry and intact. patient moved into hospital bed in overflow. VSS. plan of care ongoing
--- NOTE | 2024-06-19 13:41 | MHC.CM.ED ---
Addendum entered by Risa Lozano 06/19/24 14:20: Patient is active with [facility]. Referral made via [facility]. Original Note: Received case management consult from Lizbet VARGAS. Patient came to the ER on 06/18 d/t agitation. Patient and sig other Juanjo are well known to CM due to frequent ER visits. Patient has dementia with invoked HCP. Juanjo is her HCP. Patient was at [facility] from 06/14-03/28 and then d/c'd home. Juanjo does not feel patient can safely return home at this time. Patient has been difficult to place in the past due to Juanjo signing her out AMA from multiple facilities. Will broadcast referral within 25 miles at this time. Continue to monitor for d/c needs.
[2024-06-19 14:53] VITALS: BP 174/72; PULSE 73; RESP 19; TEMP 36.7; O2SAT 95
--- NOTE | 2024-06-19 17:17 | PHA.MEDREC ---
Pharmacy Consult ? Medication Reconciliation Pharmacy has completed the medication reconciliation. Patient doesn't know medications and unable to reach family. utilized discharge list and claim history
--- NOTE | 2024-06-19 17:18 | PC.NURSE ---
patient resting quietly in bed, occasionally yells out for needs. pharmacy working on patient med rec due to patient dementia and not being able to contact family for med list. respirations equal and unlabored, skin dry and intact, no signs of acute distress
--- NOTE | 2024-06-19 18:23 | MHC.EDTECH ---
at this time this tech assisted the pt to change their bedding after she urinated. Pt received a dry hospital gown and fresh chucks pads placed underneath. Pt was then boosted and given fresh warm blankets and positioned comfortable. Call light given and bed alarm activated for safety.
--- NOTE | 2024-06-19 20:45 | MHC.CM.ED ---
Pt is pleasantly confused. States she wants to go home. CM explained that her HCP/partner Juanjo feels she needs to go to a facility before returning home. She verifies that Juanjo's phone does not longer charge and that it does not work. KAMILA may need to call the police in the morning to reach Juanjo.
[2024-06-19 22:10] VITALS: BP 145/80; PULSE 72; RESP 14; TEMP 37.1; O2SAT 94
[2024-06-19] MEDS: Acetaminophen 325 MG TABLET 975 MG PO (22:43)
--- NOTE | 2024-06-19 22:52 | PC.NURSE ---
pt c/o headache. medicated per NOV. pt incont, assist with washing and changing bed pads. pt resting comfortably at this time
[2024-06-19] MEDS: Acamprosate Calcium 333 MG TABLET.DR 666 MG PO (23:41)
[2024-06-19] MEDS: Pravastatin Sodium 20 MG TABLET PO (23:41)
[2024-06-19] MEDS: Montelukast Sodium 10 MG TABLET PO (23:41)
[2024-06-20] VITALS (7 sets, daily range): BP systolic 134–171; BP diastolic 71–87; PULSE 67–82; RESP 15–20; TEMP 36.1–36.9; O2SAT 94–100
[2024-06-20] MEDS: Omeprazole 40 MG CAPSULE.DR PO (06:04)
--- NOTE | 2024-06-20 08:17 | PC.NURSE ---
After working with PT, pt. returned to bed and started c/o SOB. States that she uses home O2 but is uncertain how many L. Without O2, SPO2 sats are 95% on RA. Applied 1L via NC for comfort- sats are 97% on 1L.
[2024-06-20] MEDS: Aspirin Enteric Coated 81 MG TABLET.DR PO (08:22)
[2024-06-20] MEDS: Folic Acid 1 MG TABLET PO (08:22)
[2024-06-20] MEDS: Multivitamin TABLET 1 TAB PO (08:22)
--- NOTE | 2024-06-20 08:22 | PC.NURSE ---
Pt. self-removed supplemental O2 and states that she does not want it anymore.
[2024-06-20] MEDS: Acamprosate Calcium 333 MG TABLET.DR 666 MG PO ×3 (08:23→20:12)
[2024-06-20] MEDS: Metoprolol Succinate ER 25 MG TAB.ER.24H PO (08:24)
--- NOTE | 2024-06-20 10:30 | MHC.CM.ED ---
Addendum entered by Risa Lozano 06/20/24 12:33: Received telephone call from Juanjo. He can be reached via telephone at [phone]. Juanjo is aware placement could be in [place].Juanjo is also aware he will need to answer the phone for SNF in order to get placement. Addendum entered by Risa Lozano 06/20/24 12:03: [facility] could potentially offer a bed if they were able to contact HCP via telephone. Kenna Stinson CM Data Security Consultant aware of communication issues with Juanjo Montelongo, patient's invoked HCP. Per aggie Pierson to contact Mel RICHARD for wellness check for Juanjo. [employer] was contacted. Security made aware. Original Note: Patient remains in Er overflow. No bed offers within 25 miles. Referral broadcasted to all facilities contracted with [facility] within 50 miles of patient's home. Continue to monitor for d/c needs.
--- NOTE | 2024-06-20 11:30 | PC.NURSE ---
Incontinence care provided- full bed change
[2024-06-20 12:59] LABS: IDNOW Serial# 6674DD1D
[2024-06-20 13:00] LABS: COVID-19 Test Negative (Negative)
--- NOTE | 2024-06-20 13:45 | PC.NURSE ---
Incontinence care provided
--- NOTE | 2024-06-20 15:30 | PC.NURSE ---
Incontinence care provided
--- NOTE | 2024-06-20 18:48 | PC.NURSE ---
Incontinence care provided
[2024-06-20] MEDS: traZODone HCL 50 MG TABLET PO (20:12)
[2024-06-20] MEDS: Montelukast Sodium 10 MG TABLET PO (20:12)
[2024-06-20] MEDS: Pravastatin Sodium 20 MG TABLET PO (20:13)
[2024-06-21] MEDS: Baclofen 20 MG TABLET PO ×2 (00:55→17:43)
[2024-06-21] MEDS: Omeprazole 40 MG CAPSULE.DR PO (06:35)
[2024-06-21 06:49] VITALS: BP 155/70; PULSE 74; RESP 17; TEMP 36.8; O2SAT 94
--- NOTE | 2024-06-21 06:58 | PC.NURSE ---
report recieved from previous RN, patient resting comfortably on stretcher at this time, offering no complaints
--- NOTE | 2024-06-21 08:17 | PC.NURSE ---
patient provided breakfast tray, crying in bed and yelling that she wants to go home, attempted to educate patient on plan, patient shows no evidence of learning, states she wants to sign paperwork and leave and go home, educated patient again that her plan is short term rehab and her agrees with plan, patient still tearful and yelling in bed.
[2024-06-21] MEDS: Acamprosate Calcium 333 MG TABLET.DR 666 MG PO ×3 (08:43→19:47)
[2024-06-21] MEDS: Aspirin Enteric Coated 81 MG TABLET.DR PO (08:44)
[2024-06-21 08:45] VITALS: BP 150/74; PULSE 74
[2024-06-21] MEDS: Metoprolol Succinate ER 25 MG TAB.ER.24H PO (08:45)
[2024-06-21] MEDS: Multivitamin TABLET 1 TAB PO (08:45)
[2024-06-21] MEDS: Folic Acid 1 MG TABLET PO (08:45)
--- NOTE | 2024-06-21 11:55 | PC.NURSE ---
patient provided with breakfast tray, case management made aware of patient frequently asking to go home, plan of care ongoing, patient unable to make medical decisions for herself. sitting on stretcher eating lunch at this time
--- NOTE | 2024-06-21 13:20 | PC.NURSE ---
patient intermittently yelling out from bed, this RN over to assess, states she wants to sign the paperwork an go home, patient attepted to be reeducated that she is not going home today, that her wants her to go to rehab first, patient stating no its not okay i want to go home i dont want to be here patient again educated that she will be able to be reassessed tomorrow. patient able to be deescalated at this time, no attempts to get out of bed.
--- NOTE | 2024-06-21 13:39 | MHC.CM.ED ---
Patient remains in ER overflow. [facility] no longer has a dementia bed available. [facility] but they want a financial disclosure completed. Forms provided by [facility]. Attempted to speak to Juanjo via telephone at [phone]. Left message requesting return telephone call. Continue to monitor for d/c needs.
[2024-06-21 14:00] VITALS: BP 141/68; PULSE 62; RESP 16; TEMP 36; O2SAT 98
--- NOTE | 2024-06-21 14:32 | PC.NURSE ---
patient continuess to be incontinent of both stool and urine, requesting diapers frequently, educated patient that we do not carry pampers in this department, offered for patient to use purewick while she is in department, patient states no i cant use that attempted to eduate patient that she is currently urinating into a diaper and it would be no different, only with the purewick she would not get wet. patient refuses to use purewick. pericare provided. yg changed. patient remains on stretcher, no attempts to get out of bed.
--- NOTE | 2024-06-21 17:05 | PC.NURSE ---
patient provided with dinner tray, incontinent of urine, pericare provided and linens changed, patient then sat up to eat food. after setting up food and cutting meat for patient, patient decided she did not want her dinner tray at this time, ate pudding cup.
--- NOTE | 2024-06-21 17:49 | PC.NURSE ---
patient endorsing some back pain at this time, PRN baclofen ordered QD, provider messaged and OK to give dose tonight
--- NOTE | 2024-06-21 18:22 | PC.NURSE ---
patient requesting cell phone that she came with, no belongings list completed on patient since arriving to ED, patient presents with outpatient facility physical therapist however no phone found. security called to see if belongings were placed in decon or closet. no belongings found. charge operator made aware.
[2024-06-21] MEDS: Montelukast Sodium 10 MG TABLET PO (19:48)
[2024-06-21] MEDS: Pravastatin Sodium 20 MG TABLET PO (19:48)
[2024-06-21] MEDS: traZODone HCL 50 MG TABLET PO (19:48)
[2024-06-21 21:14] VITALS: BP 140/89; PULSE 68; RESP 18; TEMP 37.1; O2SAT 100
[2024-06-22] MEDS: Omeprazole 40 MG CAPSULE.DR PO (06:37)
[2024-06-22] MEDS: Aspirin Enteric Coated 81 MG TABLET.DR PO (08:59)
[2024-06-22] MEDS: Multivitamin TABLET 1 TAB PO (08:59)
[2024-06-22] MEDS: Acamprosate Calcium 333 MG TABLET.DR 666 MG PO ×3 (08:59→20:33)
[2024-06-22] MEDS: Folic Acid 1 MG TABLET PO (09:00)
[2024-06-22] MEDS: Fluticasone/Vilanterol 100/25 BLST.W.DEV 1 PUFF INHALE (09:00)
[2024-06-22] MEDS: Metoprolol Succinate ER 25 MG TAB.ER.24H PO (09:04)
--- NOTE | 2024-06-22 09:24 | MHC.CM.ED ---
Patient remains in ER overflow. Juanjo came to ER to complete [facility] Financial Disclosure form. Form forwarded to [facility]. Continue to monitor for d/c needs.
[2024-06-22 09:33] VITALS: BP 144/95; PULSE 85; RESP 16; O2SAT 95
--- NOTE | 2024-06-22 09:56 | PC.NURSE ---
asking to go home. very difficult to orient patient to current plan of care. sleeping on and off between conversations. calm.
[2024-06-22 15:17] VITALS: BP 154/72; PULSE 68; RESP 17; TEMP 36.9; O2SAT 96
[2024-06-22 16:10] LABS: Glucose, Whole Blood 114 mg/dL (60-115)
--- NOTE | 2024-06-22 17:32 | PC.NURSE ---
informed pt she cannot leave until properly discharged. no acute complications this shift
[2024-06-22] MEDS: traZODone HCL 50 MG TABLET PO (20:33)
[2024-06-22] MEDS: Pravastatin Sodium 20 MG TABLET PO (20:33)
[2024-06-22] MEDS: Montelukast Sodium 10 MG TABLET PO (20:33)
[2024-06-22 20:36] LABS: Glucose, Whole Blood 139 mg/dL (60-115)
[2024-06-22 20:59] VITALS: BP 136/89; PULSE 68; RESP 17; TEMP 37.1; O2SAT 95
[2024-06-23] VITALS (7 sets, daily range): BP systolic 127–165; BP diastolic 62–79; PULSE 63–94; RESP 16–20; TEMP 36.4–37.1; O2SAT 96–100
[2024-06-23] MEDS: Omeprazole 40 MG CAPSULE.DR PO (05:28)
[2024-06-23] MEDS: Fluticasone/Vilanterol 100/25 BLST.W.DEV 1 PUFF INHALE (07:16)
[2024-06-23] MEDS: Multivitamin TABLET 1 TAB PO (08:19)
[2024-06-23] MEDS: Acamprosate Calcium 333 MG TABLET.DR 666 MG PO ×2 (08:19→20:27)
[2024-06-23] MEDS: Aspirin Enteric Coated 81 MG TABLET.DR PO (08:19)
[2024-06-23] MEDS: Metoprolol Succinate ER 25 MG TAB.ER.24H PO (08:19)
[2024-06-23] MEDS: Folic Acid 1 MG TABLET PO (08:19)
--- NOTE | 2024-06-23 08:21 | PC.NURSE ---
Pt ate breakfast, denies complaints. Took am medications without incident. Pt given additional blanket per request.
--- NOTE | 2024-06-23 09:11 | MHC.EDTECH ---
changed pt brief. pt readjusted in bed and made comfortable.
--- NOTE | 2024-06-23 12:06 | PC.NURSE ---
Pt given meal tray.
--- NOTE | 2024-06-23 14:36 | MHC.CM.ED ---
Patient remains in ER overflow. Received notification from Desiree of [facility] that they left 2 messages for Juanjo and have not received a call back. T/W left a message for Juanjo at [phone] requesting Juanjo call Desiree at [phone]. Explained if Juanjo did not call them back to discuss financials patient would have to return home. Continue to monitor for d/c needs.
--- NOTE | 2024-06-23 19:11 | PC.NURSE ---
this rn assumed care of pt, pt resting in hospital bed, no acute distress noted. pt denies pain at this time. vss.
[2024-06-23] MEDS: Montelukast Sodium 10 MG TABLET PO (20:27)
[2024-06-23] MEDS: traZODone HCL 50 MG TABLET PO (20:27)
--- NOTE | 2024-06-23 20:28 | PC.NURSE ---
pt medicated per nov, tolerated well with water. pharmacy to bring up pt medications.
[2024-06-23] MEDS: Pravastatin Sodium 20 MG TABLET PO (21:05)
[2024-06-23] MEDS: Baclofen 20 MG TABLET PO (21:05)
--- NOTE | 2024-06-23 21:06 | PC.NURSE ---
pt medicated per mar with prn pain medication for 10/10 back pain.
--- NOTE | 2024-06-23 22:01 | PC.NURSE ---
pt noted to have small incontinent bowel movement, pt provided with incontinence care at this time.
[2024-06-24] MEDS: Omeprazole 40 MG CAPSULE.DR PO (05:37)
[2024-06-24 05:41] VITALS: BP 124/69; PULSE 84; RESP 20; TEMP 36.3; O2SAT 98
--- NOTE | 2024-06-24 07:00 | PC.NURSE ---
Assumed care of patient at 0645, patient appears to be in no apparent distress this am, laying in bed watching TV, calm and cooperative, offering no complaints to this RN. Continue plan of care for case management follow up
[2024-06-24 07:53] VITALS: PULSE 84; RESP 20; O2SAT 98
[2024-06-24] MEDS: Fluticasone/Vilanterol 100/25 BLST.W.DEV 1 PUFF INHALE (07:53)
[2024-06-24 08:01] VITALS: BP 123/64; PULSE 76
[2024-06-24] MEDS: Aspirin Enteric Coated 81 MG TABLET.DR PO (08:01)
[2024-06-24] MEDS: Metoprolol Succinate ER 25 MG TAB.ER.24H PO (08:01)
[2024-06-24] MEDS: Multivitamin TABLET 1 TAB PO (08:01)
[2024-06-24] MEDS: Folic Acid 1 MG TABLET PO (08:03)
[2024-06-24] MEDS: Acamprosate Calcium 333 MG TABLET.DR 666 MG PO ×3 (08:03→20:29)
--- NOTE | 2024-06-24 09:53 | MHC.CM.PN ---
Addendum entered by Jennifer Willis 06/24/24 12:01: Attempted to contact Juanjo again: phone answered by Inge who is Juanjo's neighbor. She states she has passed all messages to Juanjo regarding information needed for Bel[facility] to be placed for LTC. While on the phone, Inge knocked on Juanjo's door and yelled for him. No answer. Inge states Juanjo is likely out doing errands or work This CM stressed importance of Juanjo calling back to assist with Bel[facility]'s d/c needs. Inge states she will watch for Juanjo's return and ask him to contact [facility] ED CM. ED CM to await Juanjo's call. [facility] need financial forms completed prior to acceptance. Original Note: Review of EMR/CM notes: Attempted to contact Juanjo at the number listed: no answer or ability to leave a message. Calls attempted at 0830 and 0945. Updated [facility] on situation. ED CM to attempt contact again.
--- NOTE | 2024-06-24 10:00 | MHC.EDTECH ---
changed brief, patient had a BM and it was a moderate amount.
--- NOTE | 2024-06-24 12:08 | PC.NURSE ---
Patient changed brief with some assistance from this RN, continues to rest comfortably, offering no complaints to this RN
[2024-06-24 14:44] VITALS: BP 112/59; PULSE 74; RESP 16; TEMP 37.4; O2SAT 97
--- NOTE | 2024-06-24 15:01 | MHC.EDTECH ---
cell phone is charging at the psychiatric secretary desk in the main ER.
--- NOTE | 2024-06-24 16:37 | PC.NURSE ---
Pt alert and cooperative, enjoying gren[place] television shows. She denied pain or any needs. approx 10 minutes later pt called for the nurse and stated she has movements like this and demonstrated arms, legs, shoulders twitching. No spontateous twitching noted. She then states the movements cause her pain. Pt rates pain 10/10 and states it is from her arthritis. 2 small dark raised painful areas are noted on her L shoulder. She flinches to light touch on those sites. Pt then asked for a patch for her shoulder. Viktoria Guerra CONTRACTS ADVISOR tigered. Then message forwarded to Blanche VARGAS. Awaiting orders.
[2024-06-24] MEDS: Acetaminophen 325 MG TABLET 975 MG PO (19:13)
[2024-06-24] MEDS: Lidocaine 4 % Patch ADH..PATCH 1 PATCH TRANSDERMA (19:13)
--- NOTE | 2024-06-24 19:38 | PC.NURSE ---
Pt's Juanjo Lerma called approx 1800 and states he has been trying to reach the shelter case manager that she had left him several messages. He states he has no phone currently and the number of Inge his best neighbor is still the best to reach him. He states he will call back Wednesday between 0930 and 1000 to try again. Pt reports Inge is his son's mother in law.
[2024-06-24] MEDS: Montelukast Sodium 10 MG TABLET PO (20:29)
[2024-06-24] MEDS: traZODone HCL 50 MG TABLET PO (20:29)
[2024-06-24] MEDS: Pravastatin Sodium 20 MG TABLET PO (20:29)
--- NOTE | 2024-06-24 21:46 | PC.NURSE ---
pt resting quietly in bed at this time, resp with ease, no s/s of acute distress,
--- NOTE | 2024-06-25 02:07 | PC.NURSE ---
Assumed care of patient @2300. Alert and cooperative. Denies pain at this time. patient removed Lidocaine patch and placed it on bedside table. Inc x3, had a small BM, brief changed and repositioned. call jones within reach.
[2024-06-25 05:22] VITALS: BP 150/63; PULSE 66; RESP 18; TEMP 36.1; O2SAT 100
[2024-06-25] MEDS: Omeprazole 40 MG CAPSULE.DR PO (05:30)
[2024-06-25] MEDS: Fluticasone/Vilanterol 100/25 BLST.W.DEV 1 PUFF INHALE (07:32)
[2024-06-25 07:33] VITALS: PULSE 66; RESP 18; O2SAT 100
[2024-06-25] MEDS: Folic Acid 1 MG TABLET PO (08:10)
[2024-06-25] MEDS: Aspirin Enteric Coated 81 MG TABLET.DR PO (08:11)
[2024-06-25] MEDS: Acamprosate Calcium 333 MG TABLET.DR 666 MG PO ×3 (08:12→20:03)
[2024-06-25 08:13] VITALS: BP 150/63; PULSE 66
[2024-06-25] MEDS: Metoprolol Succinate ER 25 MG TAB.ER.24H PO (08:13)
[2024-06-25] MEDS: Multivitamin TABLET 1 TAB PO (08:13)
--- NOTE | 2024-06-25 10:39 | MHC.CM.ED ---
Met with Juanjo, pt's HCP who was in to visit pt. Juanjo states he has submitted forms to [facility] but wasn't clear on how this process was completed. Juanjo very focused on directing the conversation to ensuring [facility] would not take the check and wanted assurance that she would not be at facility for more than 10 days. ED CM explained that duration of stay would be dependent on pt's progress towards goals. Discussed alternative plan for pt to return to home - Juanjo states he would be able to care for pt should she not transfer to [facility] by tomorrow. I need to pay rent Wednesday so if she has to come home, she has to come home. Juanjo states pt has fired 4 [employer] MAN's and has refused [facility] entry at times. He states she needs more help in the home but pt is not cooperative. Pt's two adult children reside in [place] and are not interested in providing care for their mother according to Juanjo. Juanjo has agreed to the following: if pt is not accepted to [facility] by Wednesday, 06/26, pt will need to return to home via BLS. He states he will await a call from [facility] re: questions they had about pt's financials. Calls will go to Inge at [phone] who will then relay the message to Juanjo. ED CM awaiting response from [facility] re: pt transfer possibility.
--- NOTE | 2024-06-25 10:43 | PC.NURSE ---
Pt has been awake since this RN arrival. Mult episodes of incontience of urine and one for stool. States she doesn't know when she's going to urinate. Briefs were used and now patient attempting to use call jones and has chucks instead. No skin breakdown noted except for 2 papules on left shoulder which are bothering patient, are picked at and are weeping clear liquid. Photo sent to provider in ED. Area cleansed iwth NS by this RN and dressed with telfa. Tolerated well. Pt is expecting her to visit who is speaking with Case Management in [place]. Ate less than 1/2 of breakfast, took pills whole. Continues to use NC at 1L. Cell phone and bottom steep tender located and plugged in/available to patient.
[2024-06-25] MEDS: Baclofen 20 MG TABLET PO (13:32)
[2024-06-25 14:00] VITALS: BP 135/60; PULSE 78; RESP 20; TEMP 36.1; O2SAT 98
--- NOTE | 2024-06-25 17:04 | PC.NURSE ---
Pt has been making needs known througout the day. Incontinent of urine frequentky. Just up to commode with one assist for soft BM. NAD.
--- NOTE | 2024-06-25 19:07 | PC.NURSE ---
received report from Harriet KIRK, assume care of pt at this time
[2024-06-25] MEDS: Acetaminophen 325 MG TABLET 975 MG PO (20:03)
[2024-06-25] MEDS: Montelukast Sodium 10 MG TABLET PO (20:03)
[2024-06-25] MEDS: Pravastatin Sodium 20 MG TABLET PO (20:03)
[2024-06-25] MEDS: Lidocaine 4 % Patch ADH..PATCH 1 PATCH TRANSDERMA (20:03)
[2024-06-25] MEDS: traZODone HCL 50 MG TABLET PO (20:22)
[2024-06-25] MEDS: methocarbamoL 750 MG TABLET PO (20:22)
--- NOTE | 2024-06-25 21:57 | PC.NURSE ---
resting quietly in bed, eyes closed, resp with ease, no s/s of acute distress
[2024-06-25 22:29] VITALS: BP 117/56; PULSE 71; RESP 16; TEMP 36.4; O2SAT 96
[2024-06-26 06:00] VITALS: BP 123/65; PULSE 69; RESP 16; TEMP 36.7; O2SAT 93
[2024-06-26] MEDS: Omeprazole 40 MG CAPSULE.DR PO (06:01)
--- NOTE | 2024-06-26 06:15 | PC.NURSE ---
pt medicated with morning meds, pt peace changed under patient, will cont plan of care
--- NOTE | 2024-06-26 07:50 | PC.NURSE ---
pt incontinent of urine. per previous RN/tech, pt incontinent of urine multiple times throughout the night requiring 3+ briefs. this RN as well as tech asked pt if we could position purewick - pt then stated, i cannot use those I am allergic. pt then also refused to change into hospital as she states, I can't wear those. I am allergic and they give me a rash. pericare performed. new sheets/pads applied. commode/liner placed bedside for next time pt has to urinate. pt states she does not have control to urinate and it just comes out whenever. pt notified that we will ambulate to the commode shortly to attempt to urinate as she has not been ambulatory as of lately. pt agreeable to plan of care. pt otherwise resting in no apparent distress. has no complaints. no sob/wob noted. respirations even/unlabored. bed alarm turned on for safety precautions. plan of care ongoing. call jones placed within reach.
[2024-06-26] MEDS: Aspirin Enteric Coated 81 MG TABLET.DR PO (08:31)
[2024-06-26] MEDS: Metoprolol Succinate ER 25 MG TAB.ER.24H PO (08:31)
[2024-06-26] MEDS: Acamprosate Calcium 333 MG TABLET.DR 666 MG PO (08:31)
[2024-06-26] MEDS: Folic Acid 1 MG TABLET PO (08:31)
[2024-06-26] MEDS: Multivitamin TABLET 1 TAB PO (08:31)
[2024-06-26] MEDS: Fluticasone/Vilanterol 100/25 BLST.W.DEV 1 PUFF INHALE (08:33)
--- NOTE | 2024-06-26 08:51 | MHC.CM.ED ---
Addendum entered by Risa Lozano 06/26/24 09:54: Sig other/HCP, Juanjo, is currently bedside and requesting to take patient home. Naveen [facility]A booked for 130pm. Med [facility] with chart. Patient, Angelica Geiger RN and Lizbet VARGAS aware. Patient is active with [facility]. They were made aware that patient will be returning home today. Original Note: Patient remains in ER overflow. [facility]. Continue to monitor for d/c needs.
[2024-06-26 13:08] VITALS: BP 123/65; PULSE 69; RESP 16; TEMP 36.7; O2SAT 93
== END 2024-06-26 13:11 | disposition home or self-care (01) ==
PROVIDERS: Physician Assistant; Emergency Provider Emergency Medicine Emergency Medical Services; PCP Internal Medicine Geriatric Medicine
DX: R45.1 Restlessness and agitation (principal); F19.10 Other psychoactive substance abuse, uncomplicated; F10.90 Alcohol use, unspecified, uncomplicated; Y90.0 Blood alcohol level of less than 20 mg/100 ml; F12.10 Cannabis abuse, uncomplicated; R26.2 Difficulty in walking, not elsewhere classified; F25.9 Schizoaffective disorder, unspecified; I25.10 Atherosclerotic heart disease of native coronary artery without angina pectoris; E11.9 Type 2 diabetes mellitus without complications; Z79.899 Other long term (current) drug therapy; Z11.52 Encounter for screening for COVID-19; Z51.81 Encounter for therapeutic drug level monitoring
CPT/HCPCS: 36415; 80053; 80307; 81001; 82947; 83735; 85025; 87635; 97161; 99285; S9485

== ENCOUNTER 2024-07-13 18:52 | Emergency (ER) | payer OTHER, SELFPAY ==
[2024-07-13 18:57] VITALS: BP 123/76; PULSE 88; PULSE 91; RESP 16; TEMP 36.9; O2SAT 94; O2SAT 97; BMI 25.4
--- NOTE | 2024-07-13 20:03 | ED_ITS ---
HPI - General Adult General Chief complaint: Behavioral Concerns Stated complaint: mental health eval, has dementia Time Seen by Provider: 07/13/24 19:28 Source: patient, RN notes reviewed and old records reviewed Mode of arrival: EMS Limitations: no limitations History of Present Illness ED Provider: Robyn HPI narrative: 69-year-old female presents for evaluation for a mental health evaluation per EMS. The patient admits that she got in an argument with her . She reports that she told him that she was going to kill herself. She does not have a plan to harm herself. She currently denies any suicidal ideation and states that she would like to go home The patient states ?he always does this to me when he is drinking a lot. She denies any somatic complaint the patient was seen here a few weeks ago for a similar presentation Related Data Home Medications ?Medication ?Instructions ?Recorded ?Confirmed albuterol sulfate 90 mcg/actuation 2 puff inhalation Q4H PRN 11/26/22 06/19/24 aerosol inhaler (Ventolin HFA) Shortness Of Breath Or Wheezing aspirin 81 mg tablet,delayed 1 tab PO DAILY 11/26/22 06/19/24 release folic acid 1 mg tablet 1 mg PO DAILY 11/26/22 06/19/24 metoprolol succinate 25 mg 1 tab PO DAILY 11/26/22 06/19/24 tablet,extended release 24 hr montelukast 10 mg tablet 1 tab PO BEDTIME 11/26/22 06/19/24 pravastatin 20 mg tablet 1 tab PO BEDTIME 11/26/22 06/19/24 trazodone 50 mg tablet 1 tab PO BEDTIME PRN insomnia 11/26/22 06/19/24 fluticasone 250 mcg-salmeterol 50 1 inh inhalation BID 01/31/23 06/19/24 mcg/dose blistr powdr for inhalation (Advair Diskus) ondansetron HCl 4 mg tablet 4 mg PO BID PRN nausea 01/31/23 06/19/24 acamprosate 333 mg tablet,delayed 666 mg PO TID 05/25/23 06/19/24 release albuterol sulfate 2.5 mg/3 mL 2.5 mg inhalation Q4H PRN Wheezing 05/25/23 06/19/24 (0.083 %) solution for nebulization omeprazole 40 mg capsule,delayed 40 mg PO DAILY 06/19/24 06/19/24 release Previous Rx's ?Medication ?Instructions ?Recorded baclofen 20 mg tablet 20 mg PO DAILY PRN Back Pain 30 04/29/22 days #30 tabs multivitamin (Daily-Cony tablet) 1 tab PO DAILY 30 days #30 tabs 04/29/22 Allergies Allergy/AdvReac Type Severity Reaction Status Date / Time fluticasone Allergy Unknown Verified 07/13/24 19:02 [From Advair Diskus] salmeterol Allergy Unknown Verified 07/13/24 19:02 [From Advair Diskus] paroxetine [From Paxil] AdvReac Intermediate Nausea and Verified 07/13/24 19:02 Vomiting Review of Systems 2 Constitutional: Constitutional: Denies body ache(s), Denies chills, Denies fever(s) and Denies headache(s) Eyes: Eyes: Denies blurry vision ENT: Denies vertigo, Denies dizziness and Denies headache(s) Cardiovascular: Cardiovascular: Denies chest pain and Denies dyspnea Respiratory: Respiratory: Denies cough and Denies dyspnea Gastrointestinal: Gastrointestinal: Denies abdominal pain and Denies vomiting Musculoskeletal: Musculoskeletal: Denies back pain Integumentary/Breasts: Skin/Breast: Denies rash Neurologic: Denies vertigo, Denies dizziness and Denies headache(s) Psychiatric: Psychiatric: Denies anxiety, Denies depression and Reports suicidal ideation [facility] Past Medical History Medical History COPD (chronic obstructive pulmonary disease) Effusion of shoulder joint, left Mass of joint of left shoulder Cannabis use disorder, moderate, dependence Dementia Korsakoff disease Chronic hyponatremia Schizophrenia Congestive heart failure Bipolar 1 disorder Osteoarthritis COPD (chronic obstructive pulmonary disease) Hypertension Diabetes Coronary artery disease Sleep apnea Alcohol use disorder Surgical History Hx of appendectomy Family History Family History Sister Breast cancer, Onset Age: 40 Sister Breast cancer, Onset Age: 50 Social History Social History Household Members: Spouse Household Members Other:: 2 Housing: Apartment Do you presently have visiting nurse or other home services: Yes Unable to assess alcohol history related to: Unknown Alcohol intake: never Comment: 1:1 at bedside Patient Tobacco Use Status: Current everyday Tobacco user Tobacco use type: Cigarette Cigarette Packs Per Day: 0.5 Cigarettes Per Day: 10.0 Years Smoked: 53 e-Cigarette/Vaping Use: Never Used Second Hand Smoke Exposure: No Substance Use Type: Marijuana Advance Directives: Yes Advance Directives on File: Yes Advance Directives Date on File: 10/10/20 service: No Current occupational status: unemployed, disabled and other Sexual orientation: Straight/Heterosexual Physical Exam ED Vital Signs: Vital Signs - 24 hr 07/13/24 18:57 07/13/24 21:18 Temperature 98.5 F 98.3 F Pulse Rate 91 95 Respiratory Rate 16 16 Blood Pressure 123/76 116/56 L Pulse Oximetry 94 95 Oxygen Delivery Method Room Air Room Air BMI result Body Mass Index 25.4 Const General: healthy appearing, comfortable, no acute distress, alert and awake Nutritional Appearance: well nourished Orientation/consciousness: patient oriented x3 HENMT Head: Yes normocephalic and Yes atraumatic Eyes Eyelids: Yes eyelids normal Conjunctivae: conjunctivae normal Sclerae: sclerae normal Corneas: corneas normal Pupils: Equal, round and reactive pupils present EOM: EOMs intact bilaterally Neck Neck: Yes full ROM Resp Effort & Inspection: normal respiratory effort, able to speak in complete sentences and not labored Cardio Rate: regular rate Rhythm: regular rhythm GI Inspection: No distended Palpation (GI): Soft to palpation, not firm, nontender, no guarding and not rigid Skin General skin exam: elasticity normal Neuro General: patient oriented x3 Cranial nerves: Yes Equal, round and reactive pupils present and Yes Bilaterally intact EOM present Cognition (Neuro): normal cognition Extrem Other: Moving all extremities well without any obvious deformities Course Reevaluation(s) Reevaluation #1: The patient is seen with the care team and cleared for discharge. Time: 22:34 Medications Administered Discontinued Medications Generic Name Dose Route Start Last Admin Trade Name Freq PRN Reason Stop Dose Admin Albuterol Sulfate 4 puff 07/13/24 21:34 07/13/24 21:42 Albuterol Sulfate 90 Mcg 8 Gm Inhaler INHALE 07/13/24 21:35 4 puff ONCE ONE Administration Medical Decision Making Medical Decision Making [facility] Narrative: 69-year-old female presents for evaluation of suicidal comments. The patient currently denies any suicidality. Given her admission of suicidal thoughts we will have the care team evaluation. Plan for medical clearance Differential Diagnosis Differential Diagnoses: The differential diagnosis associated with the presentation includes Depression Suicidal ideation Alcohol abuse Substance abuse Bipolar disorder Lab Data [facility] Lab Attestation statement: I reviewed the patient's lab results. The patient has a mild normocytic anemia which she has had for the last few months. Unclear etiology the patient denies any black or bloody stool. The patient has chronic hyponatremia. This is likely related to alcohol abuse. Her potassium today is increased to 5.5. Her renal function is normal, this may be related to dehydration. His hydrating orally and was given water, apple juice and soda in the ER. 07/13/24 19:58 07/13/24 19:58 Labs: Lab Results 07/13/24 07/13/24 Range/Units 19:58 22:08 WBC 6.4 (4.8-10.8) X10*3/uL RBC 3.38 L (4.20-5.50) X10*6/uL Hgb 9.9 L (12.0-16.0) g/dl Hct 29.6 L (37.0-47.0) % MCV 87.6 (80.0-98.0) fL MCH 29.3 (27.0-33.0) pg MCHC 33.4 (31.0-35.0) g/dl RDW 15.4 (11.0-16.0) % Plt Count 261 (160-400) X10*3/uL MPV 8.6 L (9.4-12.3) fL Immature Gran % (Auto) 2.0 H (0.0-0.4) % Neut % (Auto) 51.8 (45-73) % Lymph % (Auto) 28.8 (20-40) % [place]once % (Auto) 15.7 H (2-11) % Eos % (Auto) 1.4 (0-4) % Baso % (Auto) 0.3 (0-2) % Lymph # (Auto) 1.8 (1.2-4.9) X10*3/uL [place]once # (Auto) 1.0 (0.1-1.2) X10*3/uL Eos # (Auto) 0.1 (0.0-0.4) X10*3/uL Baso # (Auto) 0.0 (0.0-0.2) X10*3/uL Abs Immat Gran (auto) 0.13 H (0.00-0.03) X10*3/uL Absolute Neuts (auto) 3.3 (2.0-8.3) x10*3/uL Absolute Nucleated RBC 0.000 (0.0-0.012) X10*3/uL Nucleated RBC % (auto) 0.0 (0.0-0.2) /100WBC Sodium 130 L (135-145) mmol/L Potassium 5.5 H (3.3-5.1) mmol/L Chloride 97 (96-108) mmol/L Carbon Dioxide 25 (22-29) mmol/L Anion Gap 14 (12-20) BUN 12 (9-16) mg/dL Creatinine 0.89 (0.5-1.4) mg/dL Estim Creat Clear Calc 46.5 Estimated GFR > 60 Random Glucose 110 (60-115) mg/dL Calcium 9.7 (8.4-10.2) mg/dL Total Bilirubin 0.3 (0.0-1.0) mg/dL AST 29 (5-31) U/L ALT 10 (0-31) U/L Alkaline Phosphatase 90 (39-117) U/L Total Protein 7.4 (6.5-8.0) g/dL Albumin 3.6 (3.5-5.0) g/dL Urine Color Yellow Urine Appearance Clear Urine pH 8.0 (5.0-9.0) Ur Specific [place] 1.010 (1.005-1.025) Urine Protein Negative (Neg-Trace) mg/dL Urine Glucose (UA) Negative (Negative) mg/dL Urine Ketones Negative (Negative) mg/dL Urine Blood Negative (Negative) Urine Nitrite Negative (Negative) Ur Leukocyte Esterase Negative (Negative) Urine RBC 0-2 (0-2) /HPF Urine WBC 0-5 (0-5) /HPF Ur Squamous Epith Cells 3-5 (0-2) /HPF Urine Bacteria None Seen (None Seen) Hyaline Casts 0-2 (0-2) /LPF Salicylates < 5.0 L (15-30) mg/dL Urine Opiates Screen Not Detected (Not Detect) Ur Buprenorphine Scrn Not Detected (Not Detect) ng/mL Ur Oxycodone Screen Not Detected (Not Detect) ng/mL Urine Methadone Screen Not Detected (Not Detect) ng/mL Urine Fentanyl Screen Not Detected (Not Detect) Acetaminophen < 3 (<30) mcg/mL Ur Barbiturates Screen Not Detected (Not Detect) Ur Phencyclidine Scrn Not Detected (Not Detect) Ur Amphetamines Screen Not Detected (Not Detect) U Benzodiazepines Scrn Not Detected (Not Detect) Urine Cocaine Screen Not Detected (Not Detect) U Marijuana (THC) Screen POSITIVE H (Not Detect) Ethyl Alcohol < 10 mg/dL Discharge Plan Discharge Clinical Impression: Depression with suicidal ideation, Acute hyponatremia, Acute hyperkalemia Patient Disposition: Home, Self-Care Instructions: Suicide Prevention (ED), Hyponatremia (ED), Hyperkalemia (ED) Prescriptions: No Action multivitamin [Daily-Cony] Tablet 1 tab PO DAILY 30 Days Qty: 30 0RF Rx Instructions: With Food baclofen 20 mg Tablet 20 mg PO DAILY PRN (Reason: Back Pain) 30 Days Qty: 30 0RF trazodone 50 mg tablet 1 tab PO BEDTIME PRN (Reason: insomnia) montelukast 10 mg tablet 1 tab PO BEDTIME pravastatin 20 mg tablet 1 tab PO BEDTIME metoprolol succinate 25 mg tablet extended release 24 hr 1 tab PO DAILY albuterol sulfate [Ventolin HFA] 90 mcg/actuation HFA aerosol inhaler 2 puff INHALATION Q4H PRN (Reason: Shortness Of Breath Or Wheezing) aspirin 81 mg tablet,delayed release (DR/EC) 1 tab PO DAILY folic acid 1 mg tablet 1 mg PO DAILY fluticasone propion-salmeterol [Advair Diskus] 250-50 mcg/dose blister with device 1 inh INHALATION BID ondansetron HCl 4 mg tablet 4 mg PO BID PRN (Reason: nausea) omeprazole 40 mg capsule,delayed release(DR/EC) 40 mg PO DAILY albuterol sulfate 2.5 mg /3 mL (0.083 %) solution for nebulization 2.5 mg inhalation Q4H PRN (Reason: Wheezing) acamprosate 333 mg tablet,delayed release (DR/EC) 666 mg PO TID Print Language: Slovak
[2024-07-13 20:04] LABS: Basophils Percent Auto 0.3 % (0-2); Eosinophils Absolute Auto 0.1 X10*3/uL (0.0-0.4); Eosinophils Percent Auto 1.4 % (0-4); Hematocrit 29.6 % (37.0-47.0); Hemoglobin 9.9 g/dl (12.0-16.0); Imm Gran Abs Auto 0.13 X10*3/uL (0.00-0.03); Lymphocytes Absolute Auto 1.8 X10*3/uL (1.2-4.9); Lymphocytes Percent Auto 28.8 % (20-40); MANUAL DIFF FLAG NO; Mean Corpuscular HGB Conc 33.4 g/dl (31.0-35.0); Mean Corpuscular Hemoglobin 29.3 pg (27.0-33.0); Mean Corpuscular Volume 87.6 fL (80.0-98.0); Mean Platelet Volume 8.6 fL (9.4-12.3); Monocytes Percent Auto 15.7 % (2-11); Neutrophils Absolute Auto 3.3 x10*3/uL (2.0-8.3); Neutrophils Percent Auto 51.8 % (45-73); Platelet Count 261 X10*3/uL (160-400); Red Blood Count 3.38 X10*6/uL (4.20-5.50); Red Cell Distribution Width 15.4 % (11.0-16.0); White Blood Count 6.4 X10*3/uL (4.8-10.8)
[2024-07-13 20:22] LABS: Acetaminophen LAB < 3 mcg/mL (<30); Alanine Aminotransferase 10 U/L (0-31); Albumin Level 3.6 g/dL (3.5-5.0); Alkaline Phosphatase 90 U/L (39-117); Anion Gap 14 (12-20); Aspartate Amino Transferase 29 U/L (5-31); Bilirubin Total 0.3 mg/dL (0.0-1.0); Blood Urea Nitrogen 12 mg/dL (9-16); Calcium 9.7 mg/dL (8.4-10.2); Carbon Dioxide 25 mmol/L (22-29); Chloride 97 mmol/L (96-108); Creatinine Clr Calc Pharmacy 46.5; Estimated Glomerular Filt Rate > 60; Ethanol < 10 mg/dL; Glucose Random 110 mg/dL (60-115); Potassium 5.5 mmol/L (3.3-5.1); Salicylate < 5.0 mg/dL (15-30); Sodium 130 mmol/L (135-145); Total Protein 7.4 g/dL (6.5-8.0)
--- NOTE | 2024-07-13 20:55 | MHC.EDTECH ---
Patient inc therefore patient changed
[2024-07-13 21:18] VITALS: BP 116/56; PULSE 95; RESP 16; TEMP 36.8; O2SAT 95
--- NOTE | 2024-07-13 21:35 | PC.NURSE ---
slight wheezing ausc. resp even and unlabored. sats 98% on RA. pt requesting inhaler. Juan VARGAS aware.
[2024-07-13] MEDS: Albuterol Sulfate 90 MCG 8 GM INHALER 4 PUFF INHALE (21:42)
[2024-07-13 22:15] LABS: Appearance Urine Clear; Color Urine Yellow; Glucose Urine UA Negative (Negative); Leukocyte Esterase Urine Negative (Negative); Nitrite Urine Negative (Negative); Urine Blood Negative (Negative); Urine Ketones Negative (Negative); Urine Protein Negative (Neg-Trace)
[2024-07-13 22:26] LABS: Amphetamine Screen Urine Not Detected (Not Detect); Barbiturates, Urine Not Detected (Not Detect); Benzodiazepines Screen Urine Not Detected (Not Detect); Buprenorphine Scr Not Detected (Not Detect); Cannabinoid Screen Urine POSITIVE (Not Detect); Cocaine Screen Urine Not Detected (Not Detect); Fentanyl, urine Not Detected (Not Detect); Methadone Screen, Urine Not Detected (Not Detect); Opiate Screen Urine Not Detected (Not Detect); Oxycodone Screen Urine Not Detected (Not Detect); Phencyclidine Screen Urine Not Detected (Not Detect)
[2024-07-13 22:31] LABS: Bacteria Urine None Seen (None Seen); Hyaline Casts Urine 0-2 /LPF (0-2); RBC Urine 0-2 /HPF (0-2); WBC Urine 0-5 /HPF (0-5)
[2024-07-14 01:21] VITALS: BP 118/66; PULSE 82; RESP 15; TEMP 36.8; O2SAT 98
== END 2024-07-14 01:22 | disposition home or self-care (01) ==
PROVIDERS: Physician Assistant; Emergency Provider Internal Medicine
DX: F33.1 Major depressive disorder, recurrent, moderate (principal); R45.851 Suicidal ideations; F03.93 Unspecified dementia, unspecified severity, with mood disturbance; E87.1 Hypo-osmolality and hyponatremia; E87.5 Hyperkalemia; D64.9 Anemia, unspecified; F17.210 Nicotine dependence, cigarettes, uncomplicated; Z51.81 Encounter for therapeutic drug level monitoring; Z79.899 Other long term (current) drug therapy
CPT/HCPCS: 36415; 80053; 80143; 80179; 80307; 81001; 85025; 99283; 99284; S9485

== ENCOUNTER 2024-08-05 13:47 | Emergency (ER) | payer OTHER, SELFPAY ==
--- NOTE | ~2024-08-05 | CT_ITS ---
EXAMINATION: CT ABDOMEN AND PELVIS WITHOUT AND WITH CONTRAST CLINICAL INFORMATION: Positive OBS. COMPARISON: CT abdomen/pelvis 07/01/2023. TECHNIQUE: Multidetector volumetric imaging was performed of the abdomen and pelvis before and after the IV administration of 80 mL of Omnipaque 300 intravenous contrast. Sagittal and coronal reformatted images were obtained on the technologist's workstation. This CT examination was performed using dose optimization techniques as appropriate, variously including the following: *Automated exposure control *Adjustment of mA and/or kV according to patient size (this includes techniques or standardized protocols for targeted exams where dose is matched to indication/reason for exam; i.e. extremities or head) *Use of iterative reconstruction technique DLP: 995 mGy-cm FINDINGS: LUNG BASES: No consolidation or pleural effusion. Indeterminate partially calcified nodularity in the lateral left breast measuring 1.1 cm (14:1). LIVER, GALLBLADDER, AND BILIARY TREE: The liver is normal in size, shape, and attenuation. No focal hepatic lesion or biliary ductal dilatation is present. Small amount of calculi versus sludge layering in the gallbladder neck. No evidence of acute cholecystitis. PANCREAS: Unremarkable SPLEEN: Unremarkable ADRENAL GLANDS: Unchanged asymmetric prominence of the left adrenal gland. KIDNEYS AND URETERS: The kidneys are normal in size, shape, and attenuation. No hydronephrosis, hydroureter, or calculi seen. No perinephric stranding. BLADDER: Unremarkable GASTROINTESTINAL TRACT: No intraluminal contrast accumulation to suspect active GI bleed. The stomach and the small bowel are nondilated. Postsurgical changes from appendectomy. Colonic diverticulosis without significant pericolonic inflammatory changes. Moderate degree of colonic and rectal stool burden. No evidence of bowel obstruction. ABDOMINAL WALL: Stable moderate size fat-containing umbilical hernia with hernial sac measuring 3.5 cm; trace amount of fatty haziness in the sac is unchanged. LYMPH NODES: No lymphadenopathy. VASCULAR: Severe atherosclerotic disease. Normal caliber of the abdominal aorta. PELVIC VISCERA: Unremarkable OSSEOUS STRUCTURES: Increased size of encapsulated collection adjacent to the medial right hip now measuring up to 5 cm, suggesting iliopsoas bursitis. Severe endstage degenerative osteoarthritis of both hips and spine. CT/CT gi bleed abd pel wo/w IVcon IMPRESSION: 1. No evidence of active gastrointestinal bleed. 2. Diverticulosis but no evidence of acute diverticulitis. 3. Moderate degree of colonic and rectal stool burden. 4. Indeterminate partially calcified nodularity in the lateral left breast. Correlate with recent mammograms. 5. Increased size of encapsulated collection adjacent to the medial right hip suggesting iliopsoas bursitis. Correlate with physical examination. Electronically signed by: Dara Scott MD 08/08/2024 06:14 PM MARCELINO
[2024-08-05 13:47] VITALS: BP 105/55; PULSE 78; O2SAT 96
[2024-08-05 13:50] VITALS: BP 111/74; PULSE 79; RESP 18; TEMP 36.6; O2SAT 97; BMI 23.8
[2024-08-05 15:25] VITALS: BP 162/78; PULSE 76; RESP 16; TEMP 36.4; O2SAT 99
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
--- NOTE | 2024-08-05 17:05 | PC.NURSE ---
patient placed on purwik for safety and comfort. baseline wheelchair bound at home per patient d/t her severe arthritis.
[2024-08-05 18:25] VITALS: BP 123/71; PULSE 76; RESP 16; TEMP 36.4; O2SAT 99
[2024-08-05 19:19] VITALS: BP 126/91; PULSE 69; RESP 18; O2SAT 98
--- NOTE | 2024-08-05 19:29 | MHC.EDTECH ---
Patient requested a peanut butter and jelly sandwich, pudding and juice. Patient asked for pure wick to be taken off and personal depends to be placed on.
[2024-08-05 22:00] VITALS: BP 114/60; PULSE 68; RESP 20; TEMP 36.8; O2SAT 99
--- NOTE | 2024-08-05 22:26 | PC.NURSE ---
Patient requested and given warm blanket. Repositioned in bed, pillow given. Medication reconciliation completed. ALICIA Carlson notified.
--- NOTE | 2024-08-05 22:36 | PHA.MEDREC ---
Pharmacy Consult ? Medication Reconciliation Pharmacy has reviewed the medication reconciliation completed by nursing. All claims match up and utilized discharge packet from 06/2024 to also match up.
[2024-08-05] MEDS: traZODone HCL 50 MG TABLET PO (22:46)
--- NOTE | 2024-08-05 22:50 | PC.NURSE ---
Patient medicated with Trazodone 50mg for sleep.
--- NOTE | 2024-08-05 23:35 | MHC.EDTECH ---
This pct assumed care of Patient at 2300 ,vitals taken ,Patient was incontinent of urine ,care given ,Patient watching television ,All safety measure in place .
[2024-08-06] VITALS (8 sets, daily range): BP systolic 119–133; BP diastolic 50–69; PULSE 66–78; RESP 16–20; TEMP 36.1–36.9; O2SAT 96–98
--- NOTE | 2024-08-06 02:40 | PC.NURSE ---
pt incontinent, unable to provide clean catch urine sample. Provider aware
[2024-08-06] MEDS: Omeprazole 40 MG CAPSULE.DR PO (06:41)
--- NOTE | 2024-08-06 08:03 | PC.NURSE ---
samantha () - called for an update. update given to family member. samantha states new phone number is [phone].
[2024-08-06] MEDS: Multivitamin TABLET 1 TAB PO (08:35)
[2024-08-06] MEDS: Acamprosate Calcium 333 MG TABLET.DR 666 MG PO ×3 (08:35→20:37)
[2024-08-06] MEDS: Folic Acid 1 MG TABLET PO (08:35)
[2024-08-06] MEDS: Aspirin Enteric Coated 81 MG TABLET.DR PO (08:35)
[2024-08-06] MEDS: Metoprolol Succinate ER 25 MG TAB.ER.24H PO (08:36)
--- NOTE | 2024-08-06 08:39 | PC.NURSE ---
vss and up to date. medication administered per provider order - will administer flonase when delivered by pharmacy. POC obtained displaying 169mg/dL. pt continues to rest in no apparent distress. pending PT eval. no sob/wob noted. respirations remain even/unlabored. plan of care ongoing. call jones placed within reach.
[2024-08-06 08:43] LABS: Glucose, Whole Blood 169 mg/dL (60-115)
[2024-08-06] MEDS: Fluticasone/Vilanterol 100/25 BLST.W.DEV 1 PUFF INHALE (10:04)
--- NOTE | 2024-08-06 11:48 | PC.NURSE ---
bed pain utilized - urine obtained/sent to lab. plan of care ongoing.
[2024-08-06 11:49] LABS: Appearance Urine Clear; Color Urine Yellow; Glucose Urine UA Negative (Negative); Leukocyte Esterase Urine Negative (Negative); Nitrite Urine Negative (Negative); PH 6.5 (5.0-9.0); Urine Blood Negative (Negative); Urine Ketones Negative (Negative); Urine Protein Negative (Neg-Trace)
[2024-08-06 11:54] LABS: Bacteria Urine None Seen (None Seen); Hyaline Casts Urine 0-2 /LPF (0-2); RBC Urine 0-2 /HPF (0-2); Squamous Epithelial Cell Urine 0-2 /HPF (0-2); WBC Urine 0-5 /HPF (0-5)
[2024-08-06 13:09] LABS: Glucose, Whole Blood 139 mg/dL (60-115)
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
[2024-08-06 18:28] LABS: Glucose, Whole Blood 118 mg/dL (60-115)
[2024-08-06] MEDS: Montelukast Sodium 10 MG TABLET PO (20:37)
--- NOTE | 2024-08-06 20:45 | PC.NURSE ---
medicated per nov, notified REAGAN Wiley
[2024-08-06] MEDS: Pravastatin Sodium 20 MG TABLET PO (21:31)
--- NOTE | 2024-08-06 21:39 | MHC.EDTECH ---
This pct assumed care of Patient at 2114 ,vitals taken ,Patient was incontinent of urine ,care given ,all safety measure in Place ,Plan of care continue .
[2024-08-06] MEDS: traZODone HCL 50 MG TABLET PO (22:41)
--- NOTE | 2024-08-06 23:25 | MHC.EDTECH ---
Patient was inconient of urine ,care given and bedding change ,Patient had a pbj sandwich for snack and some juice .
--- NOTE | 2024-08-06 23:39 | MHC.EDTECH ---
Patient refused to wear hospital gown ,Patient wanted to wear her own nightgown .
[2024-08-07] VITALS (7 sets, daily range): BP systolic 118–154; BP diastolic 61–70; PULSE 69–78; RESP 16–18; TEMP 36.1–37.1; O2SAT 94–99
--- NOTE | 2024-08-07 01:56 | MHC.EDTECH ---
0200 rounding done ,Patient awake ,and was incontinent of urine ,care given ,Patient drank sips of apple juice .
[2024-08-07] MEDS: Baclofen 20 MG TABLET PO ×2 (02:00→21:44)
[2024-08-07] MEDS: Omeprazole 40 MG CAPSULE.DR PO (06:42)
[2024-08-07 07:25] LABS: Glucose, Whole Blood 137 mg/dL (60-115)
[2024-08-07] MEDS: Albuterol Sulfate (0.083%) 2.5 MG/3 ML VIAL.NEB INHALE ×2 (07:37→15:27)
--- NOTE | 2024-08-07 07:42 | PC.NURSE ---
Pt requesting breathing treatment for some SOB, RT at bedside providing.
[2024-08-07] MEDS: Fluticasone/Vilanterol 100/25 BLST.W.DEV 1 PUFF INHALE (08:17)
[2024-08-07] MEDS: Acamprosate Calcium 333 MG TABLET.DR 666 MG PO ×3 (08:40→20:23)
[2024-08-07] MEDS: Metoprolol Succinate ER 25 MG TAB.ER.24H PO (08:40)
[2024-08-07] MEDS: Folic Acid 1 MG TABLET PO (08:41)
[2024-08-07] MEDS: Aspirin Enteric Coated 81 MG TABLET.DR PO (08:42)
[2024-08-07] MEDS: Multivitamin TABLET 1 TAB PO (08:42)
[2024-08-07 10:54] LABS: COVID-19 Test Negative (Negative); IDNOW Serial# 58CA691E
[2024-08-07] MEDS: Acetaminophen 325 MG TABLET 650 MG PO (12:09)
--- NOTE | 2024-08-07 12:28 | MHC.CM.ED ---
Patient remains in ER. Waiting for PT eval to be written up. Attempted to contact sig other/HCP, Juanjo, via telephone at [phone]. Left a message requesting return telephone call. Referral broadcasted at this time to all facilities within 15 miles that are contracted with patient's insurance. Continue to monitor for d/c needs.
[2024-08-07 16:47] LABS: Glucose, Whole Blood 131 mg/dL (60-115)
[2024-08-07] MEDS: Albuterol Sulfate 90 MCG 8 GM INHALER 2 PUFF INHALE (16:59)
--- NOTE | 2024-08-07 17:37 | MHC.EDTECH ---
pt given sun butter and jelly sandwich stating she did not eat dinner and would like a sandwich instead of her tray
--- NOTE | 2024-08-07 18:26 | MHC.EDTECH ---
when timothy cleaning pt after void, stool appeared to be a solid black color and formed. RN made aware to visualize stool.
--- NOTE | 2024-08-07 18:33 | PC.NURSE ---
pt was incontinent of stool. stool is very black. no blood noted. SCHOOL GUIDANCE COUNSELOR Kahlil notified
[2024-08-07 19:36] LABS: MANUAL DIFF FLAG NO
[2024-08-07 19:37] LABS: Basophils Percent Auto 0.2 % (0-2); Eosinophils Absolute Auto 0.2 X10*3/uL (0.0-0.4); Eosinophils Percent Auto 4.2 % (0-4); Hematocrit 27.9 % (37.0-47.0); Hemoglobin 9.7 g/dl (12.0-16.0); Imm Gran Abs Auto 0.14 X10*3/uL (0.00-0.03); Imm Gran Pct Auto 2.5 % (0.0-0.4); Lymphocytes Absolute Auto 1.8 X10*3/uL (1.2-4.9); Mean Corpuscular HGB Conc 34.8 g/dl (31.0-35.0); Mean Corpuscular Hemoglobin 29.4 pg (27.0-33.0); Mean Corpuscular Volume 84.5 fL (80.0-98.0); Mean Platelet Volume 8.1 fL (9.4-12.3); Monocytes Absolute Auto 0.9 X10*3/uL (0.1-1.2); Monocytes Percent Auto 15.4 % (2-11); Neutrophils Absolute Auto 2.7 x10*3/uL (2.0-8.3); Neutrophils Percent Auto 46.7 % (45-73); Platelet Count 335 X10*3/uL (160-400); Red Cell Distribution Width 13.7 % (11.0-16.0); White Blood Count 5.7 X10*3/uL (4.8-10.8)
--- NOTE | 2024-08-07 19:39 | MHC.EDTECH ---
pt was incontinent of urine in brief, pt was timothy cleaned, new brief was put on, bedside table and call jones both within reach
[2024-08-07 19:54] LABS: Anion Gap 13 (12-20); Blood Urea Nitrogen 14 mg/dL (9-16); Calcium 9.3 mg/dL (8.4-10.2); Carbon Dioxide 25 mmol/L (22-29); Chloride 96 mmol/L (96-108); Estimated Glomerular Filt Rate > 60; Glucose Random 125 mg/dL (60-115); Potassium 4.6 mmol/L (3.3-5.1); Sodium 129 mmol/L (135-145)
[2024-08-07] MEDS: Montelukast Sodium 10 MG TABLET PO (20:21)
[2024-08-07] MEDS: Pravastatin Sodium 20 MG TABLET PO (20:21)
[2024-08-07] MEDS: traZODone HCL 50 MG TABLET PO (20:21)
[2024-08-08] MEDS: Omeprazole 40 MG CAPSULE.DR PO (05:09)
[2024-08-08 05:15] VITALS: BP 114/61; PULSE 82; RESP 16; TEMP 36.6; O2SAT 95
[2024-08-08 07:40] LABS: MANUAL DIFF FLAG NO
[2024-08-08 07:41] LABS: Basophils Percent Auto 0.4 % (0-2); Eosinophils Absolute Auto 0.2 X10*3/uL (0.0-0.4); Hemoglobin 10.5 g/dl (12.0-16.0); Imm Gran Abs Auto 0.12 X10*3/uL (0.00-0.03); Imm Gran Pct Auto 2.4 % (0.0-0.4); Lymphocytes Absolute Auto 1.6 X10*3/uL (1.2-4.9); Lymphocytes Percent Auto 32.3 % (20-40); Mean Corpuscular Hemoglobin 29.9 pg (27.0-33.0); Mean Corpuscular Volume 85.5 fL (80.0-98.0); Mean Platelet Volume 8.1 fL (9.4-12.3); Monocytes Absolute Auto 0.8 X10*3/uL (0.1-1.2); Monocytes Percent Auto 15.3 % (2-11); Neutrophils Absolute Auto 2.3 x10*3/uL (2.0-8.3); Neutrophils Percent Auto 45.6 % (45-73); Platelet Count 340 X10*3/uL (160-400); Red Blood Count 3.51 X10*6/uL (4.20-5.50); Red Cell Distribution Width 13.8 % (11.0-16.0)
[2024-08-08 07:57] VITALS: PULSE 75; RESP 16; O2SAT 99
[2024-08-08] MEDS: Fluticasone/Vilanterol 100/25 BLST.W.DEV 1 PUFF INHALE (07:57)
[2024-08-08] MEDS: Multivitamin TABLET 1 TAB PO (08:13)
[2024-08-08] MEDS: Aspirin Enteric Coated 81 MG TABLET.DR PO (08:13)
[2024-08-08] MEDS: Folic Acid 1 MG TABLET PO (08:13)
[2024-08-08] MEDS: Metoprolol Succinate ER 25 MG TAB.ER.24H PO (08:13)
[2024-08-08] MEDS: Acamprosate Calcium 333 MG TABLET.DR 666 MG PO ×3 (08:13→20:31)
[2024-08-08 11:35] VITALS: BP 112/68; PULSE 70; RESP 16; TEMP 36.7; O2SAT 95
[2024-08-08 11:48] LABS: OBS Int Ctl Valid YES; OBS1 POSITIVE (NEGATIVE)
--- NOTE | 2024-08-08 11:51 | MHC.CM.ED ---
Addendum entered by Risa Lozano 08/08/24 14:26: [facility] is able to offer a bed. Juanjo accepts. Facility in the process of obtaining ins auth. Original Note: Patient remains in ER overflow. Spoke with invoked HCP/sig other, Juanjo, via telephone at [phone]. Juanjo replacing short term longterm placement for patient. Juanjo aware no beds available within 15 miles and referral broadcasted within 50 miles. Continue to monitor for d/c needs.
[2024-08-08] MEDS: iohexoL 350 MG/ML 100 ML INFUS..BTL IV (17:28)
--- NOTE | 2024-08-08 19:14 | PC.NURSE ---
received report from previous nurse, assume care of pt at this time
[2024-08-08 20:00] VITALS: BP 155/72; PULSE 61; RESP 16; TEMP 36.1; O2SAT 99
[2024-08-08] MEDS: traZODone HCL 50 MG TABLET PO (20:31)
[2024-08-08] MEDS: Montelukast Sodium 10 MG TABLET PO (20:31)
[2024-08-08] MEDS: Pravastatin Sodium 20 MG TABLET PO (20:31)
--- NOTE | 2024-08-08 21:34 | PC.NURSE ---
Addendum entered by Sweta Bliss RN 08/08/24 21:35: do not send [facility]. Juanjo has no way to get her back from rehab. Informed Juanjo to call at 8am and speak with case mgt. Original Note: pt's POA (Juanjo) called and stated do not send pt to
--- NOTE | 2024-08-08 23:28 | PC.NURSE ---
pt awake, stating, I can't sleep requesting something for sleep. Informed pt, I had already given her sleep medication, but maybe some tylenol would hep
[2024-08-08] MEDS: Acetaminophen 325 MG TABLET 650 MG PO (23:41)
[2024-08-09 06:00] VITALS: BP 120/70; PULSE 72; RESP 14; TEMP 36.4; O2SAT 95
[2024-08-09] MEDS: Omeprazole 40 MG CAPSULE.DR PO (06:21)
--- NOTE | 2024-08-09 06:30 | PC.NURSE ---
pt woke up crying, and stating her legs, were cramping. Painful to touch. She states at home, she gets into her walker wheelchair and move around until the pain stops. [place] text Dr Chaudhari. Waiting on reply. will cont plan of care
--- NOTE | 2024-08-09 07:09 | PC.NURSE ---
report given to Morris KIRK
[2024-08-09 07:45] LABS: Glucose, Whole Blood 116 mg/dL (60-115)
[2024-08-09 08:06] VITALS: PULSE 68; RESP 16; O2SAT 100
[2024-08-09] MEDS: Fluticasone/Vilanterol 100/25 BLST.W.DEV 1 PUFF INHALE (08:06)
[2024-08-09] MEDS: Multivitamin TABLET 1 TAB PO (09:02)
[2024-08-09] MEDS: Folic Acid 1 MG TABLET PO (09:02)
[2024-08-09] MEDS: Metoprolol Succinate ER 25 MG TAB.ER.24H PO (09:02)
[2024-08-09] MEDS: Aspirin Enteric Coated 81 MG TABLET.DR PO (09:02)
[2024-08-09] MEDS: Acamprosate Calcium 333 MG TABLET.DR 666 MG PO (09:02)
--- NOTE | 2024-08-09 09:34 | PC.NURSE ---
no acute issues or complications this AM during med pass and assessment.
--- NOTE | 2024-08-09 10:19 | MHC.CM.ED ---
Patient remains in ER overflow. Received notification that patient's sig other/HCP does not want patient to go to [facility] anymore. Spoke with Juanjo via telephone at [phone]. Magdy feels [facility] is too far. Patient would like patient to return home via BLS at 2pm. [facility] booked for 2pm. [facility] made aware. [facility] made aware. Patient, Morris Geiger RN and Sonia VARGAS aware. Continue to monitor for d/c needs.
[2024-08-09] MEDS: Acetaminophen 325 MG TABLET 650 MG PO (10:36)
[2024-08-09 12:21] LABS: Glucose, Whole Blood 134 mg/dL (60-115)
[2024-08-09 13:50] VITALS: BP 167/99; PULSE 72; RESP 20; TEMP 36.7; O2SAT 98
== END 2024-08-09 13:53 | disposition home or self-care (01) ==
PROVIDERS: Nurse Practitioner Family; Physician Assistant; Physician Assistant Medical; Emergency Provider Emergency Medicine; PCP Internal Medicine Geriatric Medicine
DX: R45.1 Restlessness and agitation (principal); E11.9 Type 2 diabetes mellitus without complications; J44.9 Chronic obstructive pulmonary disease, unspecified; F31.9 Bipolar disorder, unspecified; F04 Amnestic disorder due to known physiological condition; F12.10 Cannabis abuse, uncomplicated; F17.210 Nicotine dependence, cigarettes, uncomplicated; Z79.82 Long term (current) use of aspirin; Z79.02 Long term (current) use of antithrombotics/antiplatelets; Z79.899 Other long term (current) drug therapy
CPT/HCPCS: 36415; 74178; 80048; 81001; 82272; 82947; 85025; 87635; 94640; 97162; 99285; Q9967

== ENCOUNTER 2024-08-29 12:06 | Inpatient (IN) | payer OTHER, SELFPAY ==
[2024-08-29] VITALS (12 sets, daily range): BP systolic 109–148; BP diastolic 56–82; PULSE 63–90; RESP 11–18; TEMP 36.3–37.2; O2SAT 93–100; BMI 22.2; BMI 23.7
--- NOTE | ~2024-08-29 | CT_ITS ---
EXAMINATION: CT HEAD WITHOUT CONTRAST CLINICAL INFORMATION: fall COMPARISON: CT dated March 09, 2024. TECHNIQUE: Contiguous axial imaging was performed from the skull base to vertex without intravenous administration of contrast. This CT examination was performed using dose optimization techniques as appropriate, variously including the following: *Automated exposure control *Adjustment of mA and/or kV according to patient size (this includes techniques or standardized protocols for targeted exams where dose is matched to indication/reason for exam; i.e. extremities or head) *Use of iterative reconstruction technique DLP: 1042 mGy-cm FINDINGS: Limited by patient's motion artifact. No gross acute intracranial cranial hemorrhage, mass effect, midline shift, hydrocephalus or herniation. Fitch-white matter differentiation is grossly normal. Bilateral multifocal patchy deep periventricular white matter hypodensities. Posterior cranial fossa contents demonstrated no acute intracranial hemorrhage. No gross acute cortical disruption in the bony calvarium. There is fluid attenuation in the right mastoid air cells and tympanic cavities there is partial left mastoidectomy. No gross air-fluid levels in the included paranasal sinuses. CT/CT head/brain wo IV con IMPRESSION: Limited by patient's motion artifact. No acute intrarenal hemorrhage. Small vessel occlusive disease. Superimposed acute nonhemorrhagic ischemia cannot be excluded. Inflammatory versus infectious process, right petrous bone. Cholesteatoma cannot be excluded. Electronically signed by: Gallo Pascal MD 08/29/2024 02:47 PM EST
--- NOTE | ~2024-08-29 | CT_ITS ---
EXAMINATION: CT HEAD WITHOUT CONTRAST CLINICAL INFORMATION: Change in mental status. Recent fall. COMPARISON: CT head from 08/29/2024 and 03/09/2024. TECHNIQUE: Contiguous axial imaging was performed from the skull base to vertex without intravenous administration of contrast. This CT examination was performed using dose optimization techniques as appropriate, variously including the following: *Automated exposure control. *Adjustment of mA and/or kV according to patient size (this includes techniques or standardized protocols for targeted exams where dose is matched to indication/reason for exam; i.e. extremities or head). *Use of iterative reconstruction technique. DLP: 788 mGy-cm FINDINGS: There is no evidence of acute intracranial hemorrhage or edematous territorial infarction. Fitch-white matter differentiation is preserved. Scattered and partially confluent hypoattenuation in the periventricular and deep white matter are consistent with moderate microangiopathy. The ventricles are normal in morphology and size. No evidence for obstructive hydrocephalus. No abnormal mass effect or midline shift. No extra-axial fluid collections. Calcific atherosclerotic disease of the intracranial internal carotid and vertebral arteries. No hyperdense vessel sign. No acute soft tissue or osseous abnormalities. Mild mucosal thickening of the paranasal sinuses. Prominent right-sided mastoid/middle ear effusion. The left-sided mastoid air cells and middle ear cavity are clear. CT/CT head for STROKE IMPRESSION: 1. No evidence of acute intracranial hemorrhage or edematous territorial infarction. 2. Moderate underlying microangiopathy and generalized cerebral volume loss. 3. Chronic prominent right-sided mastoid/middle ear effusion. Electronically signed by: Josef Castellano DO 08/29/2024 08:06 PM [facility]
--- NOTE | ~2024-08-29 | CT_ITS ---
EXAMINATION: CT CERVICAL SPINE WITHOUT CONTRAST CLINICAL INFORMATION: Mental status change, mechanical fall, neck injury and pain COMPARISON: CT scan of cervical spine on 03/09/2024 TECHNIQUE: Multiple 3.0 mm axial images were obtained from base of skull to T1 levels without IV contrast enhancement. Sagittal and coronal 2.0 mm bone window images were reconstructed from axial image data. This CT examination was performed using dose optimization techniques as appropriate, variously including the following: *Automated exposure control *Adjustment of mA and/or kV according to patient size (this includes techniques or standardized protocols for targeted exams where dose is matched to indication/reason for exam; i.e. extremities or head) *Use of iterative reconstruction technique DLP: 330 mGy-cm FINDINGS: C1/C2: Bony structures are intact with normal alignment. There is no spinal stenosis. C2/C3: Bony structures are intact with normal alignment. There is no spinal stenosis. Bilateral C2/C3 neuroforamina are patent. Bilateral apophyseal joints are intact with normal alignment. C3/C4: Bony structures are intact with anterior C3 on C4 displacement by 0.3 cm. Large anterior bridging syndesmophytes are present. There is no spinal stenosis. There is asymmetric severe left C3/C4 neuroforamina neural foraminal stenosis. Bilateral apophyseal joints are intact with normal alignment. C4/C5: Bony structures are intact with normal alignment. Large anterior bridging syndesmophytes are present. There is marked decrease in intervertebral disc height. There is no spinal stenosis. There are severe right and mild left C4/C5 neuroforamina stenosis. Bilateral apophyseal joints are intact with normal alignment. C5/C6: Bony structures are intact with normal alignment. Large anterior bridging syndesmophytes are present. There is no spinal stenosis. There is asymmetric severe left C5/C6 neural foraminal stenosis. Bilateral apophyseal joints are intact with normal alignment. C6/C7: Bony structures are intact with normal alignment. Large anterior bridging syndesmophytes are present. There is marked loss of intervertebral disc height with mixed sclerotic and erosive vertebral endplate changes. There is no spinal stenosis. Bilateral C6/C7 neuroforamina are patent. Bilateral apophyseal joints are intact with normal alignment. C7/T1: Bony structures are intact with anterior C7 on T1 displacement by 0.2 cm. Sharp anterior bridging syndesmophytes are present.. There is no spinal stenosis. Bilateral C7/T1 neuroforamina are patent. Bilateral apophyseal joints are intact with normal alignment. Multilevel bilateral apophyseal joint and uncovertebral joint osteoarthritis with loss of joint space, sclerosis, facet hypertrophy and osteophytosis are seen. There is diffuse right mastoid effusion. The left mastoidectomy cavity is present. CT/CT cervical spine wo IV con IMPRESSION: 1. No evidence of acute fracture or dislocation. 2. Unchanged severe multilevel cervical spondylosis, large sharp C3-T1 syndesmophytes as described above. 3. Unchanged grade 1 C3-C4 and C7-T1 anterolisthesis. Diffuse right mastoid effusion and status post left mastoidectomy. Electronically signed by: Kevin Ahmadi MD 08/30/2024 07:28 AM [facility]
--- NOTE | ~2024-08-29 | XR_ITS ---
EXAMINATION: XR KNEE, LEFT CLINICAL INFORMATION: fall COMPARISON: X-ray dated January 17, 2024 TECHNIQUE: Four views of the left knee. FINDINGS: Marginal osteophyte formation medial femoral condyle and medial tibial plateau. Sclerosis in the femoral condyles and tibial plateau. Joint space narrowing involving mostly the medial compartment. Joint space narrowing involving the patellofemoral joint. No acute cortical disruption or malalignment. Suprapatellar bursa joint effusion, small volume. No lytic or blastic lesions. 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 No acute fracture or dislocation. Electronically signed by: Gallo Pascal MD 08/29/2024 02:56 PM EST
--- NOTE | ~2024-08-29 | XR_ITS ---
EXAMINATION: XR SHOULDER, RIGHT CLINICAL INFORMATION: fall COMPARISON: X-ray dated June 17, 2023. TECHNIQUE: AP external rotation, Grashey, scapular Y, and axillary views of the right shoulder. FINDINGS: Cortical irregularity and deformity with mixed sclerosis and subchondral cyst formation and cortical defect seen involving the humeral head greater tuberosity. Calcifications in the soft tissues around the glenohumeral capsule. No gross malalignment on the humeral head with respect to the glenoid of the scapula. The acromioclavicular joint is intact. The scapula appears intact. XR/XR shoulder RT min 2V IMPRESSION: Concerning acute on chronic inflammatory versus infectious process. Electronically signed by: Gallo Pascal MD 08/29/2024 02:54 PM [facility]
--- NOTE | ~2024-08-29 | XR_ITS ---
EXAMINATION: XR KNEE, RIGHT CLINICAL INFORMATION: fall COMPARISON: X-ray dated January 17, 2024. TECHNIQUE: Four views of the right knee. FINDINGS: Marginal osteophyte formation and both femoral condyles and tibial plateau. Sclerosis and the medial tibial plateau. Joint space narrowing involving mostly the medial compartment. Exostosis/marginal osteophyte formation posterior superior patella. No gross suprapatellar bursa joint effusion. No acute cortical disruption or malalignment. No lytic or blastic lesions. 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 Electronically signed by: Gallo Pascal MD 08/29/2024 02:58 PM EST
--- NOTE | 2024-08-29 12:42 | ED_ITS ---
HPI - Fall General Chief Complaint: Fall Stated Complaint: FALL,PAIN PER EMS Time Seen by Provider: 08/29/24 12:35 Source: patient, EMS, old records reviewed and education administrator Mode of arrival: EMS Limitations: no limitations History of Present Illness ED Provider: EVA MANNING Narrative: 69 yo female with PMH of COPD, bipolar, UTI, chronic ETOH abuse, korsakoff ds, GERD, HTN, arthritis here with c/o fall at home but during transfer it was witnessed by who was transferring her. No head strike. Patient c/o R shoulder pain, both knee pain. She admits to ETOH use all the days . 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) Fall from: wheelchair Fall witnessed: yes, by family Place fall occurred: home Loss of consciousness: none Prolonged down time: no Symptoms prior to fall: none Context: tripped/slipped Location of injury - extremities: right: shoulder and bilateral: knee Severity: moderate Quality: dull Associated symptoms (after fall): denies Related Data Home Medications ?Medication ?Instructions ?Recorded ?Confirmed albuterol sulfate 90 mcg/actuation 2 puff inhalation Q4H PRN 11/26/22 08/29/24 aerosol inhaler (Ventolin HFA) Shortness Of Breath Or Wheezing aspirin 81 mg tablet,delayed 1 tab PO DAILY 11/26/22 08/29/24 release folic acid 1 mg tablet 1 mg PO DAILY 11/26/22 08/29/24 metoprolol succinate 25 mg 1 tab PO DAILY 11/26/22 08/29/24 tablet,extended release 24 hr montelukast 10 mg tablet 1 tab PO BEDTIME 11/26/22 08/29/24 pravastatin 20 mg tablet 1 tab PO BEDTIME 11/26/22 08/29/24 trazodone 50 mg tablet 1 tab PO BEDTIME PRN insomnia 11/26/22 08/29/24 fluticasone 250 mcg-salmeterol 50 1 inh inhalation BID 01/31/23 08/29/24 mcg/dose blistr powdr for inhalation (Advair Diskus) ondansetron HCl 4 mg tablet 4 mg PO BID PRN nausea 01/31/23 08/29/24 acamprosate 333 mg tablet,delayed 666 mg PO TID 05/25/23 08/29/24 release albuterol sulfate 2.5 mg/3 mL 2.5 mg inhalation Q4H PRN Wheezing 05/25/23 08/29/24 (0.083 %) solution for nebulization omeprazole 40 mg capsule,delayed 40 mg PO DAILY@0630 06/19/24 08/29/24 release acetaminophen 650 mg 650 mg PO Q8H 08/05/24 08/29/24 tablet,extended release ferrous sulfate 325 mg (65 mg 325 mg PO DAILY 08/05/24 08/29/24 iron) tablet,delayed release Previous Rx's ?Medication ?Instructions ?Recorded baclofen 20 mg tablet 20 mg PO DAILY PRN Back Pain 30 04/29/22 days #30 tabs multivitamin (Daily-Cony tablet) 1 tab PO DAILY 30 days #30 tabs 04/29/22 Allergies Allergy/AdvReac Type Severity Reaction Status Date / Time fluticasone Allergy Unknown Verified 08/29/24 12:36 [From Advair Diskus] salmeterol Allergy Unknown Verified 08/29/24 12:36 [From Advair Diskus] paroxetine [From Paxil] AdvReac Intermediate Nausea and Verified 08/29/24 12:36 Vomiting Review of Systems 2 Review of Systems: Constitutional : No Fever, No Chills ENT/Mouth : No Ear Pain, No Hoarseness, No sore throat Eyes: No Eye Pain, No Swelling, No Redness, No Foreign Body Cardiovascular : No Chest Pain, No SOB Respiratory : No Cough, No Dyspnea Gastrointestinal : No Nausea, No Vomiting, No Diarrhea, No abdominal Pain Genitourinary : No Dysuria, No Hematuria Musculoskeletal : positive joint pain, No Myalgias, pos Joint Swelling Skin : No Skin lacerations, No rash Neuro : No Weakness, No Numbness, No Loss of Consciousness, No Dizziness, No Headache Psych : No Anxiety/Panic, No Depression All other systems reviewed and are negative PMFSH Past Medical History Attestation statement: The following information was validated with the patient. Source: old records reviewed Medical History Bipolar 1 disorder COPD (chronic obstructive pulmonary disease) Effusion of shoulder joint, left Mass of joint of left shoulder Cannabis use disorder, moderate, dependence Dementia Korsakoff disease Chronic hyponatremia Schizophrenia Congestive heart failure Osteoarthritis COPD (chronic obstructive pulmonary disease) Hypertension Diabetes Coronary artery disease Sleep apnea Alcohol use disorder Surgical History Hx of appendectomy Family History Family History Sister Breast cancer, Onset Age: 40 Sister Breast cancer, Onset Age: 50 Social History Social History Household Members: Spouse Household Members Other:: 2 Housing: Unknown / Unable to assess Do you presently have visiting nurse or other home services: Yes Unable to assess alcohol history related to: Unknown Alcohol intake: current Alcohol intake frequency: 0-2 drinks per day Alcohol type: beer Comment: 1:1 at bedside Patient Tobacco Use Status: Tobacco use Unknown Tobacco use type: Cigarette Cigarette Packs Per Day: 0.5 Cigarettes Per Day: 10.0 Years Smoked: 53 e-Cigarette/Vaping Use: Never Used Second Hand Smoke Exposure: No Substance Use Type: Marijuana Advance Directives Date on File: 10/10/20 service: No Current occupational status: unemployed, disabled and other Sexual orientation: Straight/Heterosexual Physical Exam 2 Vital Signs: Vital Signs: Last Vital Signs Temp 97.3 F 08/29/24 20:00 Pulse 76 08/29/24 20:00 Resp 12 08/29/24 20:00 BP 129/71 08/29/24 20:00 Pulse Ox 96 08/29/24 20:00 O2 Del Method Room Air 08/29/24 20:00 BMI result Body Mass Index 23.7 Appearance: Alert. Oriented X3. No acute distress. ? under the influence Eyes: Pupils equal, round and reactive to light. scleral icterus ENT: Pharynx normal. atraumatic Neck: Normal inspection. Neck supple. CVS: Normal heart rate and rhythm. Pulses normal. Respiratory: No respiratory distress. Breath sounds normal. Abdomen: Soft and nontender. Very strong odor of foul urine Rectal: soft brown stool Skin: Skin warm and dry. yellow skin color. Normal skin turgor. Extremities: No lower extremity edema. reports pain to both knees but distal NV intact and has ROM intact. R hand has mild swelling no bruising, erythema, warmth. NV intact Neuro: Oriented X 3. No motor deficit. No sensory deficit. Course Course Course Narrative: given urine odor and hx with WBC count possible infection suspected 205pm - lactic acid, cultures and IV ertapenem Medications Administered Generic Name Dose Route Start Last Admin Trade Name Freq PRN Reason Stop Dose Admin Heparin Sodium (Porcine) 5,000 unit 08/29/24 14:15 08/29/24 14:49 Heparin Sodium,Porcine 5,000 Unit/Ml Vial SUBCUT 5,000 unit Q8H YUMIKO Administration Dextrose 250 mls @ 750 mls/hr 08/29/24 19:32 08/29/24 20:06 D10 IV Infused Q15M PRN Infusion per Hypoglycemia Standing Ord. Insulin Human Lispro 0 unit 08/29/24 16:30 08/29/24 16:15 Insulin Lispro 100 Unit/Ml 3 Ml Vial SUBCUT Not Given QIDACHS [facility] Protocol Sodium Chloride 2 gm 08/29/24 15:47 08/29/24 20:26 Sodium Chloride Tab 1 Gm Tablet PO Not Given TID YUMIKO Discontinued Medications Generic Name Dose Route Start Last Admin Trade Name Freq PRN Reason Stop Dose Admin Ertapenem 1 gm 08/29/24 13:59 08/29/24 14:50 Ertapenem Sodium 1 Gm Vial IVPUSH 08/29/24 14:00 1 gm ONCE ONE Administration Thiamine HCl 200 mg/ Sodium 102 mls @ 204 mls/hr 08/29/24 14:05 08/29/24 16:02 Chloride IV 08/29/24 14:34 Infused ONCE ONE Infusion Oxycodone HCl 5 mg 08/29/24 13:06 08/29/24 13:32 Oxycodone Hcl Immed Release 5 Mg Tablet PO 08/29/24 13:07 5 mg ONCE ONE Administration Pantoprazole Sodium 40 mg 08/29/24 14:39 08/29/24 14:49 Pantoprazole Sodium 40 Mg/10 Ml Vial IVPUSH 08/29/24 14:40 40 mg ONCE ONE Administration Procedures EJ/Peripheral Line Arm R: Time Out Performed: Yes Skin Cleansed in Sterile Fashion: Yes Size (gauge): 20 IV Secured and Dressing Applied: Yes Patient Tolerated Procedure: well and no complications Medical Decision Making Medical Decision Making MDM Narrative: 69 yo female with PMH of COPD, ESBL + UTI, chronic ETOH abuse, korsakoff ds, GERD, HTN, arthritis here with c/o drinking ETOH then falling but it was during a transfer with she fell onto knees - no headstrike. When asked about ETOH use she states all the day told EMS he couldn't care for her anymore. Sheldon c/o BL knee pain and R shoulder pain no headstrike no LOC. No other complaints. Patient is agitated. Differential Diagnosis Differential Diagnoses: The differential diagnosis associated with the presentation includes falls, ETOH abuse, contusion, lyte abnormality Admission/Observation Consideration of admission/observation: Escalation of care including admission/observation considered admit to ICU given her low Na hx of same in past related to beer potomania Consult Healthcare Provider Management of the patient was discussed with: Docking Saw Operator (Dr. Harrison aware 150pm) Lab Data MDM Lab Attestation statement: I reviewed the patient's lab results. 08/29/24 19:40 08/29/24 19:40 Labs: Lab Results 08/29/24 Range/Units 13:09 WBC 13.5 H (4.8-10.8) X10*3/uL RBC 2.91 L (4.20-5.50) X10*6/uL Hgb 8.6 L (12.0-16.0) g/dl Hct 23.7 L D (37.0-47.0) % MCV 81.4 (80.0-98.0) fL MCH 29.6 (27.0-33.0) pg MCHC 36.3 H (31.0-35.0) g/dl RDW 14.6 (11.0-16.0) % Plt Count 392 (160-400) X10*3/uL MPV 9.0 L (9.4-12.3) fL Immature Gran % (Auto) 1.5 H (0.0-0.4) % Neut % (Auto) 86.0 H (45-73) % Lymph % (Auto) 4.4 L (20-40) % [place] % (Auto) 8.0 (2-11) % Eos % (Auto) 0.0 (0-4) % Baso % (Auto) 0.1 (0-2) % Lymph # (Auto) 0.6 L (1.2-4.9) X10*3/uL [place] # (Auto) 1.1 (0.1-1.2) X10*3/uL Eos # (Auto) 0.0 (0.0-0.4) X10*3/uL Baso # (Auto) 0.0 (0.0-0.2) X10*3/uL Abs Immat Gran (auto) 0.20 H (0.00-0.03) X10*3/uL Absolute Neuts (auto) 11.6 H (2.0-8.3) x10*3/uL Absolute Nucleated RBC 0.000 (0.0-0.012) X10*3/uL Nucleated RBC % (auto) 0.0 (0.0-0.2) /100WBC Sodium 112 L* (135-145) mmol/L Potassium 4.6 (3.3-5.1) mmol/L Chloride 82 L (96-108) mmol/L Carbon Dioxide 22 (22-29) mmol/L Anion Gap 13 (12-20) BUN 22 H (9-16) mg/dL Creatinine 1.02 (0.5-1.4) mg/dL Estim Creat Clear Calc 40.0 Estimated GFR 53 Random Glucose 97 (60-115) mg/dL Calcium 8.9 (8.4-10.2) mg/dL Magnesium 1.8 (1.6-2.6) mg/dL Total Bilirubin 0.6 (0.0-1.0) mg/dL Direct Bilirubin 0.3 (0.0-0.5) mg/dL AST 46 H (5-31) U/L ALT 11 (0-31) U/L Alkaline Phosphatase 89 (39-117) U/L Total Creatine Kinase 289 H (26-140) U/L Troponin I High Sens < 2.7 (<3.5-17.0) ng/L Total Protein 6.7 (6.5-8.0) g/dL Albumin 3.1 L (3.5-5.0) g/dL Lipase 4 L (8-78) U/L Ethyl Alcohol < 10 mg/dL Independent Interpretation I performed an independent interpretation of an: EKG, Plain X-Ray and CT Scan Interpretation: Rate: 86 Rhythm: NSR [place]: normal Normal P waves. Normal ANDRES. Normal QRS complex. ST T wave : inverted t waves V1-V3, no ANGELITO, flat t wave aVL qTC: 418 prior studies: no acute ischemia or change from prior The study has been interpreted contemporaneously by me. . Radiology Impression Discussion of test interpretation with radiology: I have reviewed the radiologist's reading. Independent Historian Clinical information obtained from an independent historian. History obtained from or confirmed by: EMS External Record Review External record reviewed: Inpatient record and Outpatient record Critical Care Time Critical Care Time Critical Care Time: Yes Total Critical Care Time: 45 Attestation: review of records, medical consult, ICU admission I attest to this time spent taking care of the patient Discharge Plan Discharge Clinical Impression: Acute hyponatremia, Alcohol use disorder Patient Disposition: Admitted As Inpatient Interventions: Admission Worksheet (ED) Last Done: 08/29/24 16:00 Discharge Date/Time: 08/29/24 16:00
--- NOTE | 2024-08-29 12:46 | ECG_ITS ---
Test Reason : abd pain Blood Pressure : / mmHG Vent. Rate : 086 BPM Atrial Rate : 086 BPM P-R Int : 154 ms QRS Dur : 080 ms QT Int : 350 ms P-R-T Axes : 078 022 068 degrees QTc Int : 418 ms Normal sinus rhythm Septal infarct , age undetermined ST & T wave abnormality, consider anterior ischemia Abnormal ECG When compared with ECG of 24-AUG-2023 03:11, Premature atrial complexes are no longer Present Septal infarct is now Present ST now depressed in Anterior leads Referred By: Marija Levy Electronically Signed By:Wilber Kincaid
[2024-08-29 13:15] LABS: MANUAL DIFF FLAG NO
[2024-08-29 13:18] LABS: Basophils Percent Auto 0.1 % (0-2); Hematocrit 23.7 % (37.0-47.0); Hemoglobin 8.6 g/dl (12.0-16.0); Imm Gran Pct Auto 1.5 % (0.0-0.4); Lymphocytes Absolute Auto 0.6 X10*3/uL (1.2-4.9); Lymphocytes Percent Auto 4.4 % (20-40); Mean Corpuscular HGB Conc 36.3 g/dl (31.0-35.0); Mean Corpuscular Hemoglobin 29.6 pg (27.0-33.0); Mean Corpuscular Volume 81.4 fL (80.0-98.0); Monocytes Absolute Auto 1.1 X10*3/uL (0.1-1.2); Neutrophils Absolute Auto 11.6 x10*3/uL (2.0-8.3); Platelet Count 392 X10*3/uL (160-400); Red Blood Count 2.91 X10*6/uL (4.20-5.50); Red Cell Distribution Width 14.6 % (11.0-16.0); White Blood Count 13.5 X10*3/uL (4.8-10.8)
[2024-08-29] MEDS: oxyCODONE HCl Immed Release 5 MG TABLET PO (13:32)
--- NOTE | 2024-08-29 13:32 | PC.NURSE ---
pt medicated for 10/10 ble pain, rue pain, provider aware of pain level.
[2024-08-29 13:36] LABS: Ethanol < 10 mg/dL
[2024-08-29 13:44] LABS: Troponin-I High Sensitivity < 2.7 ng/L (<3.5-17.0)
[2024-08-29 13:46] LABS: Alanine Aminotransferase 11 U/L (0-31); Albumin Level 3.1 g/dL (3.5-5.0); Alkaline Phosphatase 89 U/L (39-117); Anion Gap 13 (12-20); Aspartate Amino Transferase 46 U/L (5-31); Bilirubin Direct 0.3 mg/dL (0.0-0.5); Bilirubin Total 0.6 mg/dL (0.0-1.0); Blood Urea Nitrogen 22 mg/dL (9-16); Calcium 8.9 mg/dL (8.4-10.2); Carbon Dioxide 22 mmol/L (22-29); Chloride 82 mmol/L (96-108); Estimated Glomerular Filt Rate 53; Glucose Random 97 mg/dL (60-115); Lipase 4 U/L (8-78); Magnesium 1.8 mg/dL (1.6-2.6); Potassium 4.6 mmol/L (3.3-5.1); Sodium 112 mmol/L (135-145); Total Protein 6.7 g/dL (6.5-8.0)
[2024-08-29 14:30] LABS: OBS Int Ctl Valid YES; OBS1 POSITIVE (NEGATIVE)
[2024-08-29 14:33] LABS: Appearance Urine Clear; Color Urine Yellow; Glucose Urine UA Negative (Negative); Leukocyte Esterase Urine Negative (Negative); Nitrite Urine Negative (Negative); Specific Gravity - Urine 1.015 (1.005-1.025); UMIC TRIGGER UACC YES; Urine Blood Trace (Negative); Urine Ketones Trace mg/dL (Negative); Urine Protein 30 (1+) mg/dL (Neg-Trace)
[2024-08-29 14:46] LABS: Bacteria Urine None Seen (None Seen); RBC Urine 0-2 /HPF (0-2); Squamous Epithelial Cell Urine 0-2 /HPF (0-2); WBC Urine 0-5 /HPF (0-5)
[2024-08-29] MEDS: Pantoprazole Sodium 40 MG/10 ML VIAL IVPUSH (14:49)
[2024-08-29] MEDS: Heparin Sodium,Porcine 5,000 UNIT/ML VIAL 5000 UNIT SUBCUT ×2 (14:49→22:46)
[2024-08-29] MEDS: Thiamine HCL 200 MG in 0.9 % Sodium Chloride 100 ML 204 MG IV (14:50)
[2024-08-29] MEDS: Ertapenem Sodium 1 GM VIAL IVPUSH (14:50)
[2024-08-29 14:54] LABS: Ammonia 37 umol/L (13-55)
[2024-08-29 14:59] LABS: Lactic Acid 1.2 mmol/L (0.5-2.0)
--- NOTE | 2024-08-29 15:02 | PC.NURSE ---
pt came in via ems, pt alert to person and place, pt difficult stick, ivs attempted multiple times- was able to obtain labs but unable to thread cath through- additional staff helped obtain IV 22g to left hand, 20 US guided to rt hand area, labs drawn, ekg performed, classroom monitor applied nsr 80s, rectal exam performed by provider, temp sensing idas cath inserted, pt medicated per orders call jones within reach, will continue plan of care
--- NOTE | 2024-08-29 15:11 | PHA.MEDREC ---
Addendum entered by Guy Ruiz 08/29/24 15:30: reviewed Original Note: Pharmacy Consult ? Medication Reconciliation Pharmacy has completed the medication reconciliation. Went to speak with patient about her medications with translator/interpreter and the nurse stated she a poor historian and we should try her . I tried calling the husbands phone number on file but it is not in service when I called. Patient was discharged 08/09/24 which had a med rec done and I utilized the discharge packet from 08/09 to confirm med rec.
--- NOTE | 2024-08-29 15:49 | P.HPCC_ITS ---
History of Present Illness Date of Service: 08/29/24 Chief Complaint: Fall, alcohol dependence, hyponatremia 69-year-old lady with underlying COPD, bipolar disease, chronic alcohol abuse with Korsakoff syndrome, recurrent hyponatremia presented after a fall with no striking her head. On ER evaluation patient with significant hyponatremia with initial sodium level of 112. CT head evidence of acute hemorrhage, admitted to intensive care unit for close monitoring. Review of Systems 2 Constitutional: Constitutional: Denies daytime sleepiness, Denies excessive sweating, Denies fatigue, Denies fever(s), Denies lethargy, Reports malaise, Denies night sweats, Denies snoring and Denies weight loss Eyes: Eyes: Denies blurry vision and Denies itchy eyes ENT: Denies nasal congestion, Denies post nasal drip, Denies sinus pain, Denies sinus pressure and Denies other ( Thrush) Cardiovascular: Cardiovascular: Denies chest pain, Denies pedal edema, Denies dyspnea, Denies orthopnea and Denies paroxysmal nocturnal dyspnea Respiratory: Respiratory: Denies cough, Denies hemoptysis, Denies excessive phlegm production, Denies dyspnea, Denies snoring and Denies wheezing Gastrointestinal: Gastrointestinal: Denies abdominal pain and Denies heartburn Musculoskeletal: Musculoskeletal: Denies myalgias, Denies arthralgias and Denies joint swelling Integumentary/Breasts: Skin/Breast: Denies rash Neurologic: Denies memory loss and Denies seizure-like activity Psychiatric: Psychiatric: Denies abnormal sleep pattern, Denies anxiety and Denies memory loss Endocrine: Endocrine: Denies excessive sweating, Denies fatigue and Denies heat intolerance Hematologic/Lymphatic: Hematologic/Lymphatic: Denies easy bruising Allergic/Immunologic: Allergic/Immunologic: Denies itchy eyes, Denies seasonal rhinorrhea and Denies wheezing PMFSH Past Medical History Medical History (Updated 08/29/24 @ 15:52 by Kelvin Harrison MD) Bipolar 1 disorder COPD (chronic obstructive pulmonary disease) Effusion of shoulder joint, left Mass of joint of left shoulder Cannabis use disorder, moderate, dependence Dementia Korsakoff disease Chronic hyponatremia Schizophrenia Congestive heart failure Osteoarthritis COPD (chronic obstructive pulmonary disease) Hypertension Diabetes Coronary artery disease Sleep apnea Alcohol use disorder Family History Family History Sister Breast cancer, Onset Age: 40 Sister Breast cancer, Onset Age: 50 Surgical History Surgical History Hx of appendectomy Social History Social History Household Members: Spouse Household Members Other:: 2 Housing: Apartment Do you presently have visiting nurse or other home services: Yes Unable to assess alcohol history related to: Unknown Alcohol intake: current Alcohol intake frequency: 0-2 drinks per day Alcohol type: beer Comment: 1:1 at bedside Patient Tobacco Use Status: Current everyday Tobacco user Tobacco use type: Cigarette Cigarette Packs Per Day: 0.5 Cigarettes Per Day: 10.0 Years Smoked: 53 Smoked in Last 30 Days: Yes e-Cigarette/Vaping Use: Never Used Second Hand Smoke Exposure: No Use of substances other than those prescribed or required for medical reasons: Yes Substance Use Type: Marijuana Advance Directives: No Advance Directives Information Provided: No Advance Directives Date on File: 10/10/20 Do you have a plan to hurt others: No Plan service: No Current occupational status: unemployed, disabled and other Sexual orientation: Straight/Heterosexual Meds Allergies Allergy/AdvReac Type Severity Reaction Status Date / Time fluticasone Allergy Unknown Verified 08/29/24 12:36 [From Advair Diskus] salmeterol Allergy Unknown Verified 08/29/24 12:36 [From Advair Diskus] paroxetine [From Paxil] AdvReac Intermediate Nausea and Verified 08/29/24 12:36 Vomiting Active Medications: Current Medications Heparin Sodium (Porcine) (Heparin Sodium,Porcine 5,000 Unit/Ml Vial) 5,000 unit SUBCUT Q8H [facility] Last Admin: 08/29/24 14:49 Dose: 5,000 unit Meropenem (Meropenem 1 Gm Vial) 1 gm IVPUSH Q8H [facility] Sodium Chloride (Sodium Chloride Tab 1 Gm Tablet) 2 gm PO TID [facility] Home Medications ?Medication ?Instructions ?Recorded ?Confirmed ?Last Taken ?Type albuterol sulfate 90 mcg/actuation 2 puff inhalation Q4H PRN 11/26/22 08/29/24 Unknown History aerosol inhaler (Ventolin HFA) Shortness Of Breath Or Wheezing aspirin 81 mg tablet,delayed 1 tab PO DAILY 11/26/22 08/29/24 04/25/24 History release folic acid 1 mg tablet 1 mg PO DAILY 11/26/22 08/29/24 04/25/24 History metoprolol succinate 25 mg 1 tab PO DAILY 11/26/22 08/29/24 04/25/24 History tablet,extended release 24 hr montelukast 10 mg tablet 1 tab PO BEDTIME 11/26/22 08/29/24 04/25/24 History pravastatin 20 mg tablet 1 tab PO BEDTIME 11/26/22 08/29/24 04/25/24 History trazodone 50 mg tablet 1 tab PO BEDTIME PRN insomnia 11/26/22 08/29/24 04/25/24 History fluticasone 250 mcg-salmeterol 50 1 inh inhalation BID 01/31/23 08/29/24 04/25/24 History mcg/dose blistr powdr for inhalation (Advair Diskus) ondansetron HCl 4 mg tablet 4 mg PO BID PRN nausea 01/31/23 08/29/24 Unknown History acamprosate 333 mg tablet,delayed 666 mg PO TID 05/25/23 08/29/24 04/25/24 History release albuterol sulfate 2.5 mg/3 mL 2.5 mg inhalation Q4H PRN Wheezing 05/25/23 08/29/24 Unknown History (0.083 %) solution for nebulization omeprazole 40 mg capsule,delayed 40 mg PO DAILY@0630 06/19/24 08/29/24 Unknown History release acetaminophen 650 mg 650 mg PO Q8H 08/05/24 08/29/24 Unknown History tablet,extended release ferrous sulfate 325 mg (65 mg 325 mg PO DAILY 08/05/24 08/29/24 Unknown History iron) tablet,delayed release Physical Exam 2 Vital Signs: Vital Signs: Last Vital Signs Temp 99.0 F 08/29/24 14:54 Pulse 83 08/29/24 14:54 Resp 16 08/29/24 14:54 BP 137/70 08/29/24 14:54 Pulse Ox 95 08/29/24 14:54 O2 Del Method Room Air 08/29/24 14:54 BMI result Body Mass Index 23.7 Const: General: no acute distress and alert Nutritional Appearance: not obese Orientation/consciousness: Other orientation findings ( oriented) HEENT: Head: Yes atraumatic Eyes: General: appearance normal, both eyes and all related structures S clerae: sclerae normal EOM: EOMs intact bilaterally Neck: Neck: Yes supple Lymphatic: no lymphadenopathy noted Resp: Effort & Inspection: normal respiratory effort and no use of accessory muscles Auscultation: clear to auscultation bilaterally Cardio: Rate: regular rate Rhythm: regular rhythm Heart sounds: no gallops, no murmurs and no rubs Skin: General skin exam: other ( warm) Extrem: General: No clubbing, No cyanosis and No edema Results Labs 08/29/24 13:09 08/29/24 13:09 Labs: Laboratory Results - last 24 hr 08/29/24 08/29/24 08/29/24 13:09 14:22 14:38 MCV 81.4 MCH 29.6 MCHC 36.3 H RDW 14.6 Plt Count 392 MPV 9.0 L Immature Gran % (Auto) 1.5 H Neut % (Auto) 86.0 H Lymph % (Auto) 4.4 L [place] % (Auto) 8.0 Eos % (Auto) 0.0 Baso % (Auto) 0.1 Lymph # (Auto) 0.6 L [place] # (Auto) 1.1 Eos # (Auto) 0.0 Baso # (Auto) 0.0 Abs Immat Gran (auto) 0.20 H Absolute Neuts (auto) 11.6 H Absolute Nucleated RBC 0.000 Nucleated RBC % (auto) 0.0 Anion Gap 13 Estim Creat Clear Calc 40.0 Estimated GFR 53 Random Glucose 97 Lactic Acid 1.2 Calcium 8.9 Magnesium 1.8 Total Bilirubin 0.6 Direct Bilirubin 0.3 AST 46 H ALT 11 Alkaline Phosphatase 89 Ammonia 37 Total Creatine Kinase 289 H Troponin I High Sens < 2.7 Total Protein 6.7 Albumin 3.1 L Lipase 4 L Urine Color Yellow Urine Appearance Clear Urine pH 5.0 Ur Specific [place] 1.015 Urine Protein 30 (1+) H Urine Glucose (UA) Negative Urine Ketones Trace Urine Blood Trace H Urine Nitrite Negative Ur Leukocyte Esterase Negative Urine RBC 0-2 Urine WBC 0-5 Ur Squamous Epith Cells 0-2 Urine Bacteria None Seen Hyaline Casts 3-5 Stool Occult Blood POSITIVE Ethyl Alcohol < 10 Blood Type Antibody Screen 08/29/24 14:44 MCV MCH MCHC RDW Plt Count MPV Immature Gran % (Auto) Neut % (Auto) Lymph % (Auto) [place] % (Auto) Eos % (Auto) Baso % (Auto) Lymph # (Auto) [place] # (Auto) Eos # (Auto) Baso # (Auto) Abs Immat Gran (auto) Absolute Neuts (auto) Absolute Nucleated RBC Nucleated RBC % (auto) Anion Gap Estim Creat Clear Calc Estimated GFR Random Glucose Lactic Acid Calcium Magnesium Total Bilirubin Direct Bilirubin AST ALT Alkaline Phosphatase Ammonia Total Creatine Kinase Troponin I High Sens Total Protein Albumin Lipase Urine Color Urine Appearance Urine pH Ur Specific [place] Urine Protein Urine Glucose (UA) Urine Ketones Urine Blood Urine Nitrite Ur Leukocyte Esterase Urine RBC Urine WBC Ur Squamous Epith Cells Urine Bacteria Hyaline Casts Stool Occult Blood Ethyl Alcohol Blood Type O Positive Antibody Screen NEGATIVE Imaging Radiologist's Impressions: Impressions Knee X-Ray 08/29/24 12:46 IMPRESSION: Tricompartmental osteoarthrosis involving mostly the medial compartment without acute fracture or dislocation. Electronically signed by: Gallo Pascal MD 08/29/2024 02:58 PM EST RP Shoulder X-Ray 08/29/24 12:46 IMPRESSION: Concerning acute on chronic inflammatory versus infectious process. Electronically signed by: Gallo Pascal MD 08/29/2024 02:54 PM EST RP Knee X-Ray 08/29/24 13:45 IMPRESSION: Tricompartmental osteoarthrosis involving mostly the medial compartment. No acute fracture or dislocation. Electronically signed by: Gallo Pascal MD 08/29/2024 02:56 PM EST RP Head CT 08/29/24 13:49 IMPRESSION: Limited by patient's motion artifact. No acute intrarenal hemorrhage. Small vessel occlusive disease. Superimposed acute nonhemorrhagic ischemia cannot be excluded. Inflammatory versus infectious process, right petrous bone. Cholesteatoma cannot be excluded. Electronically signed by: Gallo Pascal MD 08/29/2024 02:47 PM EST RP Assessment and Plan (1) Korsakoff disease: Status: Acute (2) Acute hyponatremia: Status: Acute (3) Bipolar 1 disorder: Status: Acute (4) Alcohol use disorder: Status: Acute Plan Assessment: 69-year-old lady admitted with likely subacute hyponatremia with initial sodium level of 112 on a background of chronic alcohol abuse Plan: Neuro: No acute issues. No neurologic symptoms attributable to hyponatremia. Cardiac: No acute issues. Pulmonary: No acute issues. Renal: Likely subacute hyponatremia secondary to poor solute intake. Start sodium tabs and regular diet. Monitor sodium levels. Endo: No acute issues. GI: No acute issues. ID: Suspected UTI with prior ESBL organisms. Continue meropenem. Cultures are pending. Heme/Onc: No acute issues. Psych: No acute issues. Miscellaneous: No acute issues. Prophylaxis: Heparin Diet: Regular
[2024-08-29 16:13] LABS: Glucose, Whole Blood 80 mg/dL (60-115)
[2024-08-29] MEDS: Sodium Chloride Tab 1 GM TABLET 2 GM PO (17:34)
[2024-08-29 19:34] LABS: Glucose, Whole Blood 80 mg/dL (60-115)
[2024-08-29] MEDS: Dextrose 10 % 250 ML 750 ML IV (19:40)
[2024-08-29 19:47] LABS: MANUAL DIFF FLAG NO
[2024-08-29 19:51] LABS: Basophils Percent Auto 0.2 % (0-2); Hematocrit 23.7 % (37.0-47.0); Hemoglobin 8.6 g/dl (12.0-16.0); Imm Gran Abs Auto 0.18 X10*3/uL (0.00-0.03); Imm Gran Pct Auto 1.4 % (0.0-0.4); Lymphocytes Absolute Auto 0.5 X10*3/uL (1.2-4.9); Lymphocytes Percent Auto 4.2 % (20-40); Mean Corpuscular HGB Conc 36.3 g/dl (31.0-35.0); Mean Corpuscular Hemoglobin 29.8 pg (27.0-33.0); Mean Platelet Volume 8.6 fL (9.4-12.3); Monocytes Absolute Auto 1.1 X10*3/uL (0.1-1.2); Monocytes Percent Auto 8.2 % (2-11); Neutrophils Absolute Auto 11.1 x10*3/uL (2.0-8.3); Platelet Count 345 X10*3/uL (160-400); Red Blood Count 2.89 X10*6/uL (4.20-5.50); Red Cell Distribution Width 14.6 % (11.0-16.0); White Blood Count 12.9 X10*3/uL (4.8-10.8)
[2024-08-29 19:54] LABS: VBG Base Excess -2.2 mmol/L; VBG HCO3 22 mmol/L (22-26); VBG pCO2 37 mmHg; VBG pH 7.38 (7.32-7.43); VBG pO2 63 mmHg
[2024-08-29 19:56] LABS: INTERNATIONAL NORM RATIO 1.2 (0.9-1.1); Prothrombin Time 14.4 SEC (10.9-12.4)
[2024-08-29 20:14] LABS: Alanine Aminotransferase 14 U/L (0-31); Alkaline Phosphatase 91 U/L (39-117); Anion Gap 14 (12-20); Aspartate Amino Transferase 37 U/L (5-31); Bilirubin Total 0.4 mg/dL (0.0-1.0); Blood Urea Nitrogen 21 mg/dL (9-16); Calcium 8.9 mg/dL (8.4-10.2); Carbon Dioxide 21 mmol/L (22-29); Chloride 84 mmol/L (96-108); Creatinine Clr Calc Pharmacy 47.4; Estimated Glomerular Filt Rate > 60; Glucose Random 87 mg/dL (60-115); Phosphorus 2.6 mg/dL (2.7-4.5); Sodium 115 mmol/L (135-145); Total Protein 6.6 g/dL (6.5-8.0)
[2024-08-29 20:15] LABS: Venous Blood Gas Refer to POC result
[2024-08-29] MEDS: Albumin Human 25 % 100 ML IV (20:33)
[2024-08-29 20:40] LABS: Amphetamine Screen Urine Not Detected (Not Detect); Barbiturates, Urine Not Detected (Not Detect); Benzodiazepines Screen Urine Not Detected (Not Detect); Buprenorphine Scr Not Detected (Not Detect); Cannabinoid Screen Urine POSITIVE (Not Detect); Cocaine Screen Urine Not Detected (Not Detect); Fentanyl, urine Not Detected (Not Detect); Methadone Screen, Urine Not Detected (Not Detect); Opiate Screen Urine Not Detected (Not Detect); Oxycodone Screen Urine Positive (Not Detect); Phencyclidine Screen Urine Not Detected (Not Detect)
[2024-08-29 21:14] LABS: Glucose, Whole Blood 149 mg/dL (60-115)
--- NOTE | 2024-08-29 21:52 | PC.NURSE ---
Addendum entered by Tommy Cummings RN 08/30/24 06:04: AM SODIUM LIFER=172...PROVIDER AWARE...D5W 150 CC/HR X1 1000ml BAG STARTED Addendum entered by Tommy Cummings RN 08/30/24 00:28: REPEAT SODIUM LEVEL= 118....NEUROLOGIC STATUS AT BASELINE...PER ICU LEAD WELDER D5W 500ml X1 BAG ONLY @ 125 CC/HR THEN TO ASSESS F/U SODIUM LEVEL...FURTHER ALBUMEN D/C'D BY ICU LEAD WELDER Original Note: CARE ASSUMED 19:15...PER REPORT PATIENT HAD BEEN AWAKE BUT SOMEWHAT DROWSY AND VAGUE AT ADMISSION TO ICU....19:15 PATIENT LETHARGIC..RIGHT FACIAL DROOP PRESENT..RIGHT EYE DEVIATING UP AND TO RIGHT..LEFT EYE DEVIATING UP AND TO LEFT..GENERALIZED WEAKNESS...? LEFT SIDE WEAKER THAN RIGHT..NOT FOLLOWING COMMANDS...PROVIDER AT BEDSIDE...POC= 80...STAT LABS ORDERED/OBTAINED...D10% 250ML INFUSED PER PROVIDER...TRANSPORTED TO CT DEPT FOR STAT CT...D10% COMPLETED IN CT DEPT..ON RETURN TO ICU PATIENT SYMPTOMS HAD RESOLVED..NO FACIAL DROOP...EYES MID-LINE AND TRACKING NORMALLY..DENIED DISCOMFORT OTHER THAN FEELING WEAK AND TIRED PER ICU LEAD WELDER...REPEAT SODIUM LEVEL HAD INCREASED FROM 112 TO 115...9PM NaCl tablets HELD BY ICU LEAD WELDER...FOR 11PM REPEAT CHEMISTRY TO TREND SODIUM LEVEL....ALBUMEN INFUSED PER NOV...ESTEVEZ YELLOW URINE...REPEAT POC GLUCOSE 9:10PM= 149..PROVIDER AWARE
[2024-08-29] MEDS: Meropenem 1 GM VIAL IVPUSH (22:46)
[2024-08-29 23:55] LABS: Anion Gap 14 (12-20); Blood Urea Nitrogen 20 mg/dL (9-16); Calcium 8.9 mg/dL (8.4-10.2); Carbon Dioxide 23 mmol/L (22-29); Chloride 85 mmol/L (96-108); Creatinine Clr Calc Pharmacy 49.1; Estimated Glomerular Filt Rate > 60; Glucose Random 92 mg/dL (60-115); Potassium 3.6 mmol/L (3.3-5.1); Sodium 118 mmol/L (135-145)
[2024-08-30] VITALS (15 sets, daily range): BP systolic 98–120; BP diastolic 53–67; PULSE 64–111; RESP 12–20; TEMP 36.1–36.8; O2SAT 90–98; BMI 23.1
[2024-08-30] MEDS: Dextrose 5 % 500 ML 125 ML IVCONT (00:15)
[2024-08-30] MEDS: Meropenem 1 GM VIAL IVPUSH ×3 (05:06→21:10)
[2024-08-30 05:23] LABS: Basophils Percent Auto 0.1 % (0-2); Eosinophils Percent Auto 0.1 % (0-4); Hematocrit 22.1 % (37.0-47.0); Imm Gran Abs Auto 0.13 X10*3/uL (0.00-0.03); Imm Gran Pct Auto 1.5 % (0.0-0.4); Lymphocytes Absolute Auto 0.9 X10*3/uL (1.2-4.9); Lymphocytes Percent Auto 9.5 % (20-40); MANUAL DIFF FLAG NO; Mean Corpuscular HGB Conc 36.2 g/dl (31.0-35.0); Mean Corpuscular Hemoglobin 29.4 pg (27.0-33.0); Mean Corpuscular Volume 81.3 fL (80.0-98.0); Mean Platelet Volume 8.6 fL (9.4-12.3); Monocytes Absolute Auto 1.1 X10*3/uL (0.1-1.2); Monocytes Percent Auto 11.9 % (2-11); Neutrophils Absolute Auto 6.9 x10*3/uL (2.0-8.3); Neutrophils Percent Auto 76.9 % (45-73); Platelet Count 316 X10*3/uL (160-400); Red Blood Count 2.72 X10*6/uL (4.20-5.50); Red Cell Distribution Width 14.6 % (11.0-16.0); White Blood Count 8.9 X10*3/uL (4.8-10.8)
[2024-08-30] MEDS: Heparin Sodium,Porcine 5,000 UNIT/ML VIAL 5000 UNIT SUBCUT ×3 (05:23→21:10)
[2024-08-30 05:41] LABS: Albumin Level 3.1 g/dL (3.5-5.0); Anion Gap 13 (12-20); Blood Urea Nitrogen 22 mg/dL (9-16); Calcium 9.4 mg/dL (8.4-10.2); Carbon Dioxide 24 mmol/L (22-29); Chloride 88 mmol/L (96-108); Creatinine Clr Calc Pharmacy 49.7; Estimated Glomerular Filt Rate > 60; Glucose Random 100 mg/dL (60-115); Phosphorus 1.9 mg/dL (2.7-4.5); Potassium 3.5 mmol/L (3.3-5.1); Sodium 121 mmol/L (135-145)
[2024-08-30] MEDS: Dextrose 5 % 1,000 ML 150 ML IVCONT (06:00)
[2024-08-30 07:38] LABS: Glucose, Whole Blood 122 mg/dL (60-115)
--- NOTE | 2024-08-30 09:30 | MHC.CM.PN ---
IMM DELIVERED TO [facility]/HCP [facility] VIA TELEPHONE PT IS UNABLE TO PARTICIPATE DUE TO COGNITIVE LOSS.. HCP REQUESTS [place] BE MAILED , ADDRESS CONFIRMED. YELLOW COPY PLACED IN CHART. PT LIVES WITH SPOUSE AND IS W/C DEPENDENT. [facility]/O ASSISTS PT WITH TRANSFERS. HCP REQUESTS PT GO TO [facility] BEFORE RETURNING HOME AND REQUESTS A LOCAL CENTER SO HE MAY VISIT. PT IS ACTIVE WITH [facility] FOR NURSING/MEDICATION MANAGEMENT. +HCP ON FILE AND PCP DR. MO OF [facility]. DP: PT'S HCP REQUESTS PT GO TO [facility] ON DC. PT WILL NEED A P.T. EVAL TO DETERMINE DC DISPOSITION. RETURN REFERRAL SENTR PT WILL NEED BLS TRANSPORT. CM WILL CONTINUE TO FOLLOW FOR ANY CHANGE TO DC PLAN/NEEDS.
--- NOTE | 2024-08-30 10:35 | PM.CCPN ---
Subjective Subjective Date of Service: 08/30/24 Interval History: 69-year-old lady with underlying COPD, bipolar disease, chronic alcohol abuse with Korsakoff syndrome, recurrent hyponatremia presented after a fall with no striking her head. On ER evaluation patient with significant hyponatremia with initial sodium level of 112. CT head evidence of acute hemorrhage, admitted to intensive care unit for close monitoring. Patient has received 1 g of sodium chloride with improvement of her sodium to 121 overnight. Secondary to fast correction she has received approximately 1 L of D5. No events overnight. Critical Care Time (minutes): 0 Physical Exam Vital Signs: Vital Signs: Last Vital Signs Temp 97.7 F 08/30/24 09:00 Pulse 74 08/30/24 09:00 Resp 14 08/30/24 09:00 BP 115/56 L 08/30/24 09:00 Pulse Ox 98 08/30/24 09:00 O2 Del Method Room Air 08/30/24 09:00 BMI result Body Mass Index 23.1 Const: General: no acute distress, alert and awake Eyes: Sclerae: sclerae normal EOM: EOMs intact bilaterally Neck: Neck: Yes no lymphadenopathy, Yes trachea midline and Yes supple Resp: Effort & Inspection: normal respiratory effort and no respiratory distress Auscultation: clear to auscultation bilaterally Cardio: Rate: regular rate Rhythm: regular rhythm Heart sounds: no gallops, no murmurs and no rubs GI: Palpation (GI): Soft to palpation and Other GI palpation findings present ( Nontender) Auscultation: normal bowel sounds Extrem: General: Yes no pedal edema, No clubbing and No cyanosis Objective Data Labs 08/30/24 05:09 08/30/24 05:09 Labs: Laboratory Results - last 24 hr 08/29/24 08/29/24 08/29/24 13:09 14:22 14:38 WBC 13.5 H RBC 2.91 L Hgb 8.6 L Hct 23.7 L D MCV 81.4 MCH 29.6 MCHC 36.3 H RDW 14.6 Plt Count 392 MPV 9.0 L Immature Gran % (Auto) 1.5 H Neut % (Auto) 86.0 H Lymph % (Auto) 4.4 L [place] % (Auto) 8.0 Eos % (Auto) 0.0 Baso % (Auto) 0.1 Lymph # (Auto) 0.6 L [place] # (Auto) 1.1 Eos # (Auto) 0.0 Baso # (Auto) 0.0 Abs Immat Gran (auto) 0.20 H Absolute Neuts (auto) 11.6 H Absolute Nucleated RBC 0.000 Nucleated RBC % (auto) 0.0 PT INR VBG pH VBG pCO2 VBG pO2 VBG HCO3 VBG O2 Saturation VBG Base Excess Sodium 112 L* Potassium 4.6 Chloride 82 L Carbon Dioxide 22 Anion Gap 13 BUN 22 H Creatinine 1.02 Estim Creat Clear Calc 40.0 Estimated GFR 53 POC Glucose Random Glucose 97 Lactic Acid 1.2 Calcium 8.9 Phosphorus Magnesium 1.8 Total Bilirubin 0.6 Direct Bilirubin 0.3 AST 46 H ALT 11 Alkaline Phosphatase 89 Ammonia 37 Total Creatine Kinase 289 H Troponin I High Sens < 2.7 Total Protein 6.7 Albumin 3.1 L Lipase 4 L Urine Color Yellow Urine Appearance Clear Urine pH 5.0 Ur Specific [place] 1.015 Urine Protein 30 (1+) H Urine Glucose (UA) Negative Urine Ketones Trace Urine Blood Trace H Urine Nitrite Negative Ur Leukocyte Esterase Negative Urine RBC 0-2 Urine WBC 0-5 Ur Squamous Epith Cells 0-2 Urine Bacteria None Seen Hyaline Casts 3-5 Stool Occult Blood POSITIVE Urine Opiates Screen Ur Buprenorphine Scrn Ur Oxycodone Screen Urine Methadone Screen Urine Fentanyl Screen Ur Barbiturates Screen Ur Phencyclidine Scrn Ur Amphetamines Screen U Benzodiazepines Scrn Urine Cocaine Screen U Marijuana (THC) Screen Ethyl Alcohol < 10 Blood Type Antibody Screen 08/29/24 08/29/24 08/29/24 14:44 15:54 16:10 WBC RBC Hgb Hct MCV MCH MCHC RDW Plt Count MPV Immature Gran % (Auto) Neut % (Auto) Lymph % (Auto) [place] % (Auto) Eos % (Auto) Baso % (Auto) Lymph # (Auto) [place] # (Auto) Eos # (Auto) Baso # (Auto) Abs Immat Gran (auto) Absolute Neuts (auto) Absolute Nucleated RBC Nucleated RBC % (auto) PT INR VBG pH VBG pCO2 VBG pO2 VBG HCO3 VBG O2 Saturation VBG Base Excess Sodium Potassium Chloride Carbon Dioxide Anion Gap BUN Creatinine Estim Creat Clear Calc Estimated GFR POC Glucose 80 Random Glucose Lactic Acid Calcium Phosphorus Magnesium Total Bilirubin Direct Bilirubin AST ALT Alkaline Phosphatase Ammonia Total Creatine Kinase Troponin I High Sens Total Protein Albumin Lipase Urine Color Urine Appearance Urine pH Ur Specific [place] Urine Protein Urine Glucose (UA) Urine Ketones Urine Blood Urine Nitrite Ur Leukocyte Esterase Urine RBC Urine WBC Ur Squamous Epith Cells Urine Bacteria Hyaline Casts Stool Occult Blood Urine Opiates Screen Not Detected Ur Buprenorphine Scrn Not Detected Ur Oxycodone Screen Positive H Urine Methadone Screen Not Detected Urine Fentanyl Screen Not Detected Ur Barbiturates Screen Not Detected Ur Phencyclidine Scrn Not Detected Ur Amphetamines Screen Not Detected U Benzodiazepines Scrn Not Detected Urine Cocaine Screen Not Detected U Marijuana (THC) Screen POSITIVE H Ethyl Alcohol Blood Type O Positive Antibody Screen NEGATIVE 08/29/24 08/29/24 08/29/24 19:31 19:40 19:40 WBC 12.9 H RBC 2.89 L Hgb 8.6 L Hct 23.7 L MCV 82.0 MCH 29.8 MCHC 36.3 H RDW 14.6 Plt Count 345 MPV 8.6 L Immature Gran % (Auto) 1.4 H Neut % (Auto) 86.0 H Lymph % (Auto) 4.2 L [place] % (Auto) 8.2 Eos % (Auto) 0.0 Baso % (Auto) 0.2 Lymph # (Auto) 0.5 L [place] # (Auto) 1.1 Eos # (Auto) 0.0 Baso # (Auto) 0.0 Abs Immat Gran (auto) 0.18 H Absolute Neuts (auto) 11.1 H Absolute Nucleated RBC 0.000 Nucleated RBC % (auto) 0.0 PT 14.4 H INR 1.2 H VBG pH VBG pCO2 VBG pO2 VBG HCO3 VBG O2 Saturation VBG Base Excess Sodium Cancelled 115 L* Potassium Cancelled Chloride Carbon Dioxide Anion Gap BUN Creatinine Estim Creat Clear Calc Estimated GFR POC Glucose 80 Random Glucose Lactic Acid Calcium Phosphorus Magnesium Total Bilirubin Direct Bilirubin AST ALT Alkaline Phosphatase Ammonia Total Creatine Kinase Troponin I High Sens Total Protein Albumin Lipase Urine Color Urine Appearance Urine pH Ur Specific [place] Urine Protein Urine Glucose (UA) Urine Ketones Urine Blood Urine Nitrite Ur Leukocyte Esterase Urine RBC Urine WBC Ur Squamous Epith Cells Urine Bacteria Hyaline Casts Stool Occult Blood Urine Opiates Screen Ur Buprenorphine Scrn Ur Oxycodone Screen Urine Methadone Screen Urine Fentanyl Screen Ur Barbiturates Screen Ur Phencyclidine Scrn Ur Amphetamines Screen U Benzodiazepines Scrn Urine Cocaine Screen U Marijuana (THC) Screen Ethyl Alcohol Blood Type Antibody Screen 08/29/24 08/29/24 08/29/24 19:40 19:40 19:40 WBC RBC Hgb Hct MCV MCH MCHC RDW Plt Count MPV Immature Gran % (Auto) Neut % (Auto) Lymph % (Auto) [place] % (Auto) Eos % (Auto) Baso % (Auto) Lymph # (Auto) [place] # (Auto) Eos # (Auto) Baso # (Auto) Abs Immat Gran (auto) Absolute Neuts (auto) Absolute Nucleated RBC Nucleated RBC % (auto) PT INR VBG pH VBG pCO2 VBG pO2 VBG HCO3 VBG O2 Saturation VBG Base Excess Sodium Potassium 4.0 Chloride Cancelled 84 L Carbon Dioxide Cancelled 21 L Anion Gap Cancelled BUN Creatinine Estim Creat Clear Calc Estimated GFR POC Glucose Random Glucose Lactic Acid Calcium Phosphorus Magnesium Total Bilirubin Direct Bilirubin AST ALT Alkaline Phosphatase Ammonia Total Creatine Kinase Troponin I High Sens Total Protein Albumin Lipase Urine Color Urine Appearance Urine pH Ur Specific [place] Urine Protein Urine Glucose (UA) Urine Ketones Urine Blood Urine Nitrite Ur Leukocyte Esterase Urine RBC Urine WBC Ur Squamous Epith Cells Urine Bacteria Hyaline Casts Stool Occult Blood Urine Opiates Screen Ur Buprenorphine Scrn Ur Oxycodone Screen Urine Methadone Screen Urine Fentanyl Screen Ur Barbiturates Screen Ur Phencyclidine Scrn Ur Amphetamines Screen U Benzodiazepines Scrn Urine Cocaine Screen U Marijuana (THC) Screen Ethyl Alcohol Blood Type Antibody Screen 08/29/24 08/29/24 08/29/24 19:40 19:40 19:40 WBC RBC Hgb Hct MCV MCH MCHC RDW Plt Count MPV Immature Gran % (Auto) Neut % (Auto) Lymph % (Auto) [place] % (Auto) Eos % (Auto) Baso % (Auto) Lymph # (Auto) [place] # (Auto) Eos # (Auto) Baso # (Auto) Abs Immat Gran (auto) Absolute Neuts (auto) Absolute Nucleated RBC Nucleated RBC % (auto) PT INR VBG pH VBG pCO2 VBG pO2 VBG HCO3 VBG O2 Saturation VBG Base Excess Sodium Potassium Chloride Carbon Dioxide Anion Gap 14 BUN Cancelled 21 H Creatinine Cancelled 0.86 Estim Creat Clear Calc Cancelled Estimated GFR POC Glucose Random Glucose Lactic Acid Calcium Phosphorus Magnesium Total Bilirubin Direct Bilirubin AST ALT Alkaline Phosphatase Ammonia Total Creatine Kinase Troponin I High Sens Total Protein Albumin Lipase Urine Color Urine Appearance Urine pH Ur Specific [place] Urine Protein Urine Glucose (UA) Urine Ketones Urine Blood Urine Nitrite Ur Leukocyte Esterase Urine RBC Urine WBC Ur Squamous Epith Cells Urine Bacteria Hyaline Casts Stool Occult Blood Urine Opiates Screen Ur Buprenorphine Scrn Ur Oxycodone Screen Urine Methadone Screen Urine Fentanyl Screen Ur Barbiturates Screen Ur Phencyclidine Scrn Ur Amphetamines Screen U Benzodiazepines Scrn Urine Cocaine Screen U Marijuana (THC) Screen Ethyl Alcohol Blood Type Antibody Screen 08/29/24 08/29/24 08/29/24 19:40 19:40 19:40 WBC RBC Hgb Hct MCV MCH MCHC RDW Plt Count MPV Immature Gran % (Auto) Neut % (Auto) Lymph % (Auto) [place] % (Auto) Eos % (Auto) Baso % (Auto) Lymph # (Auto) [place] # (Auto) Eos # (Auto) Baso # (Auto) Abs Immat Gran (auto) Absolute Neuts (auto) Absolute Nucleated RBC Nucleated RBC % (auto) PT INR VBG pH VBG pCO2 VBG pO2 VBG HCO3 VBG O2 Saturation VBG Base Excess Sodium Potassium Chloride Carbon Dioxide Anion Gap BUN Creatinine Estim Creat Clear Calc 47.4 Estimated GFR Cancelled > 60 POC Glucose Random Glucose Cancelled 87 Lactic Acid Calcium Cancelled Phosphorus Magnesium Total Bilirubin Direct Bilirubin AST ALT Alkaline Phosphatase Ammonia Total Creatine Kinase Troponin I High Sens Total Protein Albumin Lipase Urine Color Urine Appearance Urine pH Ur Specific [place] Urine Protein Urine Glucose (UA) Urine Ketones Urine Blood Urine Nitrite Ur Leukocyte Esterase Urine RBC Urine WBC Ur Squamous Epith Cells Urine Bacteria Hyaline Casts Stool Occult Blood Urine Opiates Screen Ur Buprenorphine Scrn Ur Oxycodone Screen Urine Methadone Screen Urine Fentanyl Screen Ur Barbiturates Screen Ur Phencyclidine Scrn Ur Amphetamines Screen U Benzodiazepines Scrn Urine Cocaine Screen U Marijuana (THC) Screen Ethyl Alcohol Blood Type Antibody Screen 08/29/24 08/29/24 08/29/24 19:40 19:47 21:10 WBC RBC Hgb Hct MCV MCH MCHC RDW Plt Count MPV Immature Gran % (Auto) Neut % (Auto) Lymph % (Auto) [place] % (Auto) Eos % (Auto) Baso % (Auto) Lymph # (Auto) [place] # (Auto) Eos # (Auto) Baso # (Auto) Abs Immat Gran (auto) Absolute Neuts (auto) Absolute Nucleated RBC Nucleated RBC % (auto) PT INR VBG pH 7.38 VBG pCO2 37 VBG pO2 63 VBG HCO3 22 VBG O2 Saturation 91.0 VBG Base Excess -2.2 Sodium Potassium Chloride Carbon Dioxide Anion Gap BUN Creatinine Estim Creat Clear Calc Estimated GFR POC Glucose 149 H Random Glucose Lactic Acid Calcium 8.9 Phosphorus 2.6 L Magnesium 2.0 Total Bilirubin 0.4 Direct Bilirubin AST 37 H ALT 14 Alkaline Phosphatase 91 Ammonia Total Creatine Kinase Troponin I High Sens Total Protein 6.6 Albumin 3.0 L Lipase Urine Color Urine Appearance Urine pH Ur Specific [place] Urine Protein Urine Glucose (UA) Urine Ketones Urine Blood Urine Nitrite Ur Leukocyte Esterase Urine RBC Urine WBC Ur Squamous Epith Cells Urine Bacteria Hyaline Casts Stool Occult Blood Urine Opiates Screen Ur Buprenorphine Scrn Ur Oxycodone Screen Urine Methadone Screen Urine Fentanyl Screen Ur Barbiturates Screen Ur Phencyclidine Scrn Ur Amphetamines Screen U Benzodiazepines Scrn Urine Cocaine Screen U Marijuana (THC) Screen Ethyl Alcohol Blood Type Antibody Screen 08/29/24 08/30/24 08/30/24 23:23 05:09 07:35 WBC 8.9 RBC 2.72 L Hgb 8.0 L Hct 22.1 L MCV 81.3 MCH 29.4 MCHC 36.2 H RDW 14.6 Plt Count 316 MPV 8.6 L Immature Gran % (Auto) 1.5 H Neut % (Auto) 76.9 H Lymph % (Auto) 9.5 L [place] % (Auto) 11.9 H Eos % (Auto) 0.1 Baso % (Auto) 0.1 Lymph # (Auto) 0.9 L [place] # (Auto) 1.1 Eos # (Auto) 0.0 Baso # (Auto) 0.0 Abs Immat Gran (auto) 0.13 H Absolute Neuts (auto) 6.9 Absolute Nucleated RBC 0.000 Nucleated RBC % (auto) 0.0 PT INR VBG pH VBG pCO2 VBG pO2 VBG HCO3 VBG O2 Saturation VBG Base Excess Sodium 118 L* 121 L Potassium 3.6 3.5 Chloride 85 L 88 L Carbon Dioxide 23 24 Anion Gap 14 13 BUN 20 H 22 H Creatinine 0.83 0.82 Estim Creat Clear Calc 49.1 49.7 Estimated GFR > 60 > 60 POC Glucose 122 H Random Glucose 92 100 Lactic Acid Calcium 8.9 9.4 Phosphorus 1.9 L Magnesium 2.0 Total Bilirubin Direct Bilirubin AST ALT Alkaline Phosphatase Ammonia Total Creatine Kinase Troponin I High Sens Total Protein Albumin 3.1 L Lipase Urine Color Urine Appearance Urine pH Ur Specific [place] Urine Protein Urine Glucose (UA) Urine Ketones Urine Blood Urine Nitrite Ur Leukocyte Esterase Urine RBC Urine WBC Ur Squamous Epith Cells Urine Bacteria Hyaline Casts Stool Occult Blood Urine Opiates Screen Ur Buprenorphine Scrn Ur Oxycodone Screen Urine Methadone Screen Urine Fentanyl Screen Ur Barbiturates Screen Ur Phencyclidine Scrn Ur Amphetamines Screen U Benzodiazepines Scrn Urine Cocaine Screen U Marijuana (THC) Screen Ethyl Alcohol Blood Type Antibody Screen Progress Note: A&P Assessment and plan (1) Alcohol use disorder: Status: Acute (2) Bipolar 1 disorder: Status: Acute (3) Korsakoff disease: Status: Acute (4) Acute hyponatremia: Status: Acute Plan Assessment: 69-year-old lady admitted with likely subacute hyponatremia with initial sodium level of 112 on a background of chronic alcohol abuse Plan: Neuro: No acute issues. No neurologic symptoms attributable to hyponatremia. Cardiac: No acute issues. Pulmonary: No acute issues. Renal: Likely subacute hyponatremia secondary to poor solute intake. Sodium level improved to 121 after single dose of sodium chloride 1 g and regular diet. Continue to monitor sodium level. Endo: No acute issues. GI: No acute issues. ID: Suspected UTI with prior ESBL organisms. Continue meropenem. Cultures are pending. Heme/Onc: No acute issues. Psych: No acute issues. Miscellaneous: No acute issues. Prophylaxis: Heparin Diet: Regular Quality Stroke Does the patient have a stroke diagnosis?: No VTE Prior VTE?: No VTE Risk Level:: Medical - moderate - high VTE Device Contraindication: Treatment Not Indicated VTE Drug Contraindication: N/A - Med Ordered
[2024-08-30 11:01] LABS: Anion Gap 10 (12-20); Blood Urea Nitrogen 20 mg/dL (9-16); Calcium 9.1 mg/dL (8.4-10.2); Carbon Dioxide 25 mmol/L (22-29); Chloride 88 mmol/L (96-108); Creatinine Clr Calc Pharmacy 53.6; Estimated Glomerular Filt Rate > 60; Glucose Random 110 mg/dL (60-115); Potassium 3.4 mmol/L (3.3-5.1); Sodium 120 mmol/L (135-145)
[2024-08-30 11:40] LABS: Glucose, Whole Blood 100 mg/dL (60-115)
[2024-08-30 16:25] LABS: Glucose, Whole Blood 119 mg/dL (60-115)
[2024-08-30 19:16] LABS: Anion Gap 14 (12-20); Blood Urea Nitrogen 23 mg/dL (9-16); Carbon Dioxide 21 mmol/L (22-29); Chloride 88 mmol/L (96-108); Creatinine Clr Calc Pharmacy 48.5; Estimated Glomerular Filt Rate > 60; Glucose Random 115 mg/dL (60-115); Potassium 3.6 mmol/L (3.3-5.1); Sodium 119 mmol/L (135-145)
[2024-08-30 20:21] LABS: Glucose, Whole Blood 122 mg/dL (60-115)
[2024-08-30] MEDS: SODIUM CHLORIDE 3% 30 ML IV (20:24)
[2024-08-30] MEDS: Sodium Chloride Tab 1 GM TABLET 2 GM PO (20:27)
[2024-08-30] MEDS: HYDROmorphone HCl 0.5 MG/0.5 ML SYRINGE IVPUSH (21:10)
[2024-08-31 04:00] VITALS: BP 108/58; PULSE 95; RESP 21; TEMP 36.3; O2SAT 93
[2024-08-31] MEDS: Heparin Sodium,Porcine 5,000 UNIT/ML VIAL 5000 UNIT SUBCUT ×3 (06:04→21:24)
[2024-08-31] MEDS: Meropenem 1 GM VIAL IVPUSH (06:05)
[2024-08-31 07:53] LABS: MANUAL DIFF FLAG NO
[2024-08-31 08:00] VITALS: BP 109/58; PULSE 90; RESP 18; TEMP 36.2; O2SAT 94
[2024-08-31 08:15] LABS: Albumin Level 2.7 g/dL (3.5-5.0); Anion Gap 14 (12-20); Blood Urea Nitrogen 23 mg/dL (9-16); Calcium 8.8 mg/dL (8.4-10.2); Carbon Dioxide 25 mmol/L (22-29); Chloride 91 mmol/L (96-108); Creatinine Clr Calc Pharmacy 50.3; Estimated Glomerular Filt Rate > 60; Glucose Random 106 mg/dL (60-115); Phosphorus 1.9 mg/dL (2.7-4.5); Potassium 3.5 mmol/L (3.3-5.1); Sodium 126 mmol/L (135-145)
[2024-08-31 08:17] LABS: Basophils Percent Auto 0.2 % (0-2); Eosinophils Percent Auto 0.5 % (0-4); Hematocrit 21.3 % (37.0-47.0); Hemoglobin 7.5 g/dl (12.0-16.0); Imm Gran Pct Auto 4.9 % (0.0-0.4); Lymphocytes Absolute Auto 1.2 X10*3/uL (1.2-4.9); Lymphocytes Percent Auto 19.5 % (20-40); Mean Corpuscular HGB Conc 35.2 g/dl (31.0-35.0); Mean Corpuscular Hemoglobin 29.1 pg (27.0-33.0); Mean Corpuscular Volume 82.6 fL (80.0-98.0); Mean Platelet Volume 8.9 fL (9.4-12.3); Monocytes Absolute Auto 0.8 X10*3/uL (0.1-1.2); Monocytes Percent Auto 13.6 % (2-11); NRBC Pct Auto 0.3 /100WBC (0.0-0.2); Neutrophils Absolute Auto 3.8 x10*3/uL (2.0-8.3); Neutrophils Percent Auto 61.3 % (45-73); Platelet Count 373 X10*3/uL (160-400); Red Blood Count 2.58 X10*6/uL (4.20-5.50); Red Cell Distribution Width 14.8 % (11.0-16.0); White Blood Count 6.2 X10*3/uL (4.8-10.8)
[2024-08-31] MEDS: Fluticasone/Vilanterol 100/25 BLST.W.DEV 1 PUFF INHALE (08:28)
[2024-08-31 09:03] LABS: Glucose, Whole Blood 117 mg/dL (60-115)
[2024-08-31] MEDS: Sodium Chloride Tab 1 GM TABLET 2 GM PO ×3 (09:28→20:05)
[2024-08-31] MEDS: Multivitamin TABLET 1 TAB PO (09:28)
[2024-08-31] MEDS: Aspirin Enteric Coated 81 MG TABLET.DR PO (09:29)
[2024-08-31] MEDS: Metoprolol Succinate ER 25 MG TAB.ER.24H PO (09:29)
--- NOTE | 2024-08-31 09:39 | P.PNIM_ITS ---
Subjective Subjective Date of Service: 08/31/24 Interval History: no complaints Physical Exam 2 Vital Signs: Vital Signs: Last Vital Signs Temp 97.2 F 08/31/24 08:00 Pulse 90 08/31/24 08:00 Resp 18 08/31/24 08:00 BP 109/58 L 08/31/24 08:00 Pulse Ox 94 08/31/24 08:00 O2 Del Method Room Air 08/31/24 08:00 BMI result Body Mass Index 23.1 General: AO X 3, no acute distress Resp: CTA bilateral, no accessory muscles used CVS: S1,S2,RRR GI: soft, non tender, non distended Neuro: motor grossly intact, alert Psych: appropriate affect, appropriate insight Objective Data Active Medications Aspirin (Aspirin Enteric Coated 81 Mg Tablet.) 81 mg PO DAILY [facility] Last Admin: 08/31/24 09:29 Dose: 81 mg Documented By: JANNETTE Baclofen (Baclofen 20 Mg Tablet) 20 mg PO DAILY PRN PRN Reason: Back Pain Fluticasone/Vilanterol (Fluticasone/Vilanterol 100/25 Blst.W.Dev) 1 puff INHALE DAILY [facility] Last Admin: 08/31/24 08:28 Dose: 1 puff Documented By: YADIRA Folic Acid (Folic Acid 1 Mg Tablet) 1 mg PO DAILY [facility] Heparin Sodium (Porcine) (Heparin Sodium,Porcine 5,000 Unit/Ml Vial) 5,000 unit SUBCUT Q8H [facility] Last Admin: 08/31/24 06:04 Dose: 5,000 unit Documented By: TIFFANIE Dextrose (D10) 250 mls @ 750 mls/hr IV Q15M PRN PRN Reason: per Hypoglycemia Standing Ord. Last Infusion: 08/29/24 20:06 Dose: Infused Documented By: LARISSA Insulin Human Lispro (Insulin Lispro 100 Unit/Ml 3 Ml Vial) 0 unit SUBCUT QIDACHS [facility]; Protocol Last Admin: 08/31/24 09:29 Dose: Not Given Documented By: JANNETTE Non-Admin Reason: No Insulin Coverage Metoprolol Succinate (Metoprolol Succinate Er 25 Mg Tab.Er.24h) 25 mg PO DAILY [facility]; Protocol Last Admin: 08/31/24 09:29 Dose: 25 mg Documented By: JANNETTE Montelukast Sodium (Montelukast Sodium 10 Mg Tablet) 10 mg PO BEDTIME [facility] Multivitamins/Vitamin C (Multivitamin Tablet) 1 tab PO DAILY [facility] Last Admin: 08/31/24 09:28 Dose: 1 tab Documented By: JANNETTE Omeprazole (Omeprazole 40 Mg Capsule.Dr) 40 mg PO DAILY@0630 [facility] Pravastatin Sodium (Pravastatin Sodium 20 Mg Tablet) 20 mg PO BEDTIME [facility] Sodium Chloride (Sodium Chloride Tab 1 Gm Tablet) 2 gm PO TID [facility] Last Admin: 08/31/24 09:28 Dose: 2 gm Documented By: JANNETTE Trazodone HCl (Trazodone Hcl 50 Mg Tablet) 50 mg PO BEDTIME PRN PRN Reason: insomnia Labs 08/31/24 07:23 08/31/24 07:23 Labs: Laboratory Results - last 24 hr 08/30/24 08/30/24 08/30/24 10:35 11:35 16:21 MCV MCH MCHC RDW Plt Count MPV Immature Gran % (Auto) Neut % (Auto) Lymph % (Auto) [place] % (Auto) Eos % (Auto) Baso % (Auto) Lymph # (Auto) [place] # (Auto) Eos # (Auto) Baso # (Auto) Abs Immat Gran (auto) Absolute Neuts (auto) Absolute Nucleated RBC Nucleated RBC % (auto) Anion Gap 10 L Estim Creat Clear Calc 53.6 Estimated GFR > 60 POC Glucose 100 119 H Random Glucose 110 Calcium 9.1 Phosphorus Magnesium Albumin 08/30/24 08/30/24 08/31/24 18:12 20:17 07:23 MCV 82.6 MCH 29.1 MCHC 35.2 H RDW 14.8 Plt Count 373 MPV 8.9 L Immature Gran % (Auto) 4.9 H Neut % (Auto) 61.3 Lymph % (Auto) 19.5 L [place] % (Auto) 13.6 H Eos % (Auto) 0.5 Baso % (Auto) 0.2 Lymph # (Auto) 1.2 [place] # (Auto) 0.8 Eos # (Auto) 0.0 Baso # (Auto) 0.0 Abs Immat Gran (auto) 0.30 H Absolute Neuts (auto) 3.8 Absolute Nucleated RBC 0.020 H Nucleated RBC % (auto) 0.3 H Anion Gap 14 14 Estim Creat Clear Calc 48.5 50.3 Estimated GFR > 60 > 60 POC Glucose 122 H Random Glucose 115 106 Calcium 9.0 8.8 Phosphorus 1.9 L Magnesium 2.0 Albumin 2.7 L 08/31/24 08:10 MCV MCH MCHC RDW Plt Count MPV Immature Gran % (Auto) Neut % (Auto) Lymph % (Auto) [place] % (Auto) Eos % (Auto) Baso % (Auto) Lymph # (Auto) [place] # (Auto) Eos # (Auto) Baso # (Auto) Abs Immat Gran (auto) Absolute Neuts (auto) Absolute Nucleated RBC Nucleated RBC % (auto) Anion Gap Estim Creat Clear Calc Estimated GFR POC Glucose 117 H Random Glucose Calcium Phosphorus Magnesium Albumin Microbiology Microbiology Results: Microbiology 08/29/24 14:38 Blood Culture - Preliminary Blood - Venous No growth after 24 hours. 08/29/24 14:38 Blood Culture - Preliminary Blood - Venous No growth after 24 hours. Assessment and Plan (1) Acute hyponatremia: Status: Acute Plan 69F PMH etoh dependence, recurrent hyponatremia, bipolar, Korsakoff, COPD presented with fall, found to have severe hyponatremia of 112. Was admitted to intensive care, sodium was slowly increased at acceptable rate. Was downgraded 08/30/2024 with a sodium of 120. Acute recurrent hyponatremia due to beer potomania Sodium improving at acceptable Continue to monitor Oral solute, fluid restrict COPD stable dvt prophylaxis - hep sq full code reason for continued hospitalization:hyponatremia Quality Stroke Does the patient have a stroke diagnosis?: No VTE Prior VTE?: No VTE Risk Level:: Medical - moderate - high VTE Device Contraindication: Treatment Not Indicated VTE Drug Contraindication: N/A - Med Ordered
[2024-08-31] MEDS: Folic Acid 1 MG TABLET PO (10:58)
[2024-08-31 11:44] LABS: Glucose, Whole Blood 153 mg/dL (60-115)
[2024-08-31 12:00] VITALS: BP 120/56; PULSE 84; RESP 18; TEMP 36.2; O2SAT 94
[2024-08-31 16:00] VITALS: BP 111/61; PULSE 78; RESP 18; TEMP 36.1; O2SAT 98
[2024-08-31 16:38] LABS: Glucose, Whole Blood 117 mg/dL (60-115)
[2024-08-31 19:23] VITALS: BP 90/53; PULSE 96; RESP 16; TEMP 36.1; O2SAT 97
[2024-08-31] MEDS: Montelukast Sodium 10 MG TABLET PO (20:05)
[2024-08-31] MEDS: traZODone HCL 50 MG TABLET PO (20:05)
[2024-08-31] MEDS: Pravastatin Sodium 20 MG TABLET PO (20:05)
[2024-08-31 20:38] LABS: Glucose, Whole Blood 170 mg/dL (60-115)
[2024-08-31 23:34] VITALS: BP 107/53; PULSE 95; RESP 20; TEMP 37.3; O2SAT 98
[2024-09-01] MEDS: Albuterol/Iprat 2.5/0.5MG 3 ML AMPUL.NEB INHALE (00:31)
[2024-09-01] MEDS: Acetaminophen 325 MG TABLET 975 MG PO (00:37)
[2024-09-01 03:27] VITALS: BP 106/58; PULSE 74; RESP 18; TEMP 37.3; O2SAT 99
[2024-09-01] MEDS: Omeprazole 40 MG CAPSULE.DR PO (06:04)
[2024-09-01] MEDS: Heparin Sodium,Porcine 5,000 UNIT/ML VIAL 5000 UNIT SUBCUT ×2 (06:05→14:38)
[2024-09-01 07:21] LABS: Mean Corpuscular HGB Conc 34.8 g/dl (31.0-35.0); Mean Corpuscular Hemoglobin 29.5 pg (27.0-33.0); Mean Corpuscular Volume 84.9 fL (80.0-98.0); Mean Platelet Volume 8.9 fL (9.4-12.3); Platelet Count 369 X10*3/uL (160-400); Red Blood Count 2.71 X10*6/uL (4.20-5.50); Red Cell Distribution Width 15.2 % (11.0-16.0); White Blood Count 5.7 X10*3/uL (4.8-10.8)
[2024-09-01 07:37] LABS: Glucose, Whole Blood 165 mg/dL (60-115)
[2024-09-01 07:42] VITALS: BP 121/57; PULSE 75; RESP 19; TEMP 36.3; O2SAT 95
[2024-09-01 08:31] VITALS: PULSE 75; RESP 19; O2SAT 95
[2024-09-01] MEDS: Fluticasone/Vilanterol 100/25 BLST.W.DEV 1 PUFF INHALE (08:31)
[2024-09-01 09:17] VITALS: BP 121/57; PULSE 75
[2024-09-01] MEDS: Aspirin Enteric Coated 81 MG TABLET.DR PO (09:17)
[2024-09-01] MEDS: Sodium Chloride Tab 1 GM TABLET 2 GM PO ×2 (09:17→14:39)
[2024-09-01] MEDS: Metoprolol Succinate ER 25 MG TAB.ER.24H PO (09:17)
[2024-09-01] MEDS: Multivitamin TABLET 1 TAB PO (09:17)
[2024-09-01] MEDS: Folic Acid 1 MG TABLET PO (09:17)
[2024-09-01 11:45] VITALS: BP 135/64; PULSE 83; RESP 18; TEMP 36.4; O2SAT 100
[2024-09-01 13:26] LABS: Anion Gap 9 (12-20); Blood Urea Nitrogen 19 mg/dL (9-16); Calcium 8.8 mg/dL (8.4-10.2); Carbon Dioxide 28 mmol/L (22-29); Chloride 100 mmol/L (96-108); Creatinine Clr Calc Pharmacy 59.1; Estimated Glomerular Filt Rate > 60; Glucose Random 102 mg/dL (60-115); Potassium 4.3 mmol/L (3.3-5.1); Sodium 133 mmol/L (135-145)
--- NOTE | 2024-09-01 13:30 | PM.DS ---
DS: Providers Provider Date of Service: 09/01/24 Date of admission: 08/29/24 14:17 Date of discharge: 09/01/24 Primary care physician: Ryder Monique MD DS: Diagnosis Discharge Diagnosis (1) Acute hyponatremia: Status: Acute DS: Summary Hospital Course Hospital Course: from initial hpi: 69-year-old lady with underlying COPD, bipolar disease, chronic alcohol abuse with Korsakoff syndrome, recurrent hyponatremia presented after a fall with no striking her head. On ER evaluation patient with significant hyponatremia with initial sodium level of 112. CT head evidence of acute hemorrhage, admitted to intensive care unit for close monitoring. hospital course: Patient was admitted for acute recurrent hyponatremia due to beer potomania. Sodium improved slowly at an acceptable rate is 133 at time of discharge. This was achieved through fluid restriction oral solute intake. Patient should continue to avoid alcohol, avoid excess fluid intake and encouraged to continue oral solute intake. For COPD remained stable. Patient will be discharged home. Time Attestation Discharge Coordination Time (in mins): 37 Quality: Safe Use of Opioids Does Pt have an Active Cancer Diagnosis on the Problem List?: No Quality: Stroke Does the patient have a stroke diagnosis?: No Physical Exam Vital Signs: Vital Signs: Last Vital Signs Temp 97.5 F 09/01/24 11:45 Pulse 83 09/01/24 11:45 Resp 18 09/01/24 11:45 BP 135/64 09/01/24 11:45 Pulse Ox 100 09/01/24 11:45 O2 Del Method Nasal Cannula 09/01/24 11:45 O2 Flow Rate 92 09/01/24 11:45 BMI result Body Mass Index 23.1 General: AO X 3, no acute distress Resp: CTA bilateral, no accessory muscles used CVS: S1,S2,RRR GI: soft, non tender, non distended Neuro: motor grossly intact, alert Psych: appropriate affect, appropriate insight DS: Data Data Completed and Pending Completed studies during hospitalization [Text1]: Procedures Detoxification Services for Substance Abuse Treatment (03/03/23) Insertion of Infusion Device into Superior Vena Cava, Percutaneous Approach (05/01/21) Labs on day of discharge: Laboratory Results - last 24 hr 08/31/24 08/31/24 09/01/24 16:08 20:11 06:37 WBC 5.7 RBC 2.71 L Hgb 8.0 L Hct 23.0 L MCV 84.9 MCH 29.5 MCHC 34.8 RDW 15.2 Plt Count 369 MPV 8.9 L Absolute Nucleated RBC 0.000 Nucleated RBC % (auto) 0.0 Sodium Potassium Chloride Carbon Dioxide Anion Gap BUN Creatinine Estim Creat Clear Calc Estimated GFR POC Glucose 117 H 170 H Random Glucose Calcium 09/01/24 09/01/24 07:32 13:03 WBC RBC Hgb Hct MCV MCH MCHC RDW Plt Count MPV Absolute Nucleated RBC Nucleated RBC % (auto) Sodium 133 L Potassium 4.3 D Chloride 100 Carbon Dioxide 28 Anion Gap 9 L BUN 19 H Creatinine 0.69 Estim Creat Clear Calc 59.1 Estimated GFR > 60 POC Glucose 165 H Random Glucose 102 Calcium 8.8 Preliminary micro results at discharge 08/29/24 14:38 Blood Culture - Preliminary Blood - Venous No growth after 48 hours. 08/29/24 14:38 Blood Culture - Preliminary Blood - Venous No growth after 48 hours. Discharge Plan Discharge Anticipated Discharge Date/Time: 09/01/24 13:28 Patient Disposition: Home, Self-Care Discharge Diagnosis: hyponatremia Referrals: Name,MD Ryder [Primary Care Provider] - 1 Week Discharge Medications: Continued multivitamin [Daily-Cony] Tablet 1 tab PO DAILY 30 Days Qty: 30 0RF Rx Instructions: With Food baclofen 20 mg Tablet 20 mg PO DAILY PRN (Reason: Back Pain) 30 Days Qty: 30 0RF trazodone 50 mg tablet 1 tab PO BEDTIME PRN (Reason: insomnia) montelukast 10 mg tablet 1 tab PO BEDTIME pravastatin 20 mg tablet 1 tab PO BEDTIME metoprolol succinate 25 mg tablet extended release 24 hr 1 tab PO DAILY albuterol sulfate [Ventolin HFA] 90 mcg/actuation HFA aerosol inhaler 2 puff INHALATION Q4H PRN (Reason: Shortness Of Breath Or Wheezing) aspirin 81 mg tablet,delayed release (DR/EC) 1 tab PO DAILY folic acid 1 mg tablet 1 mg PO DAILY fluticasone propion-salmeterol [Advair Diskus] 250-50 mcg/dose blister with device 1 inh INHALATION BID ondansetron HCl 4 mg tablet 4 mg PO BID PRN (Reason: nausea) omeprazole 40 mg capsule,delayed release(DR/EC) 40 mg PO DAILY@0630 acetaminophen 650 mg tablet extended release 650 mg PO Q8H ferrous sulfate 325 mg (65 mg iron) tablet,delayed release (DR/EC) 325 mg PO DAILY albuterol sulfate 2.5 mg /3 mL (0.083 %) solution for nebulization 2.5 mg inhalation Q4H PRN (Reason: Wheezing) acamprosate 333 mg tablet,delayed release (DR/EC) 666 mg PO TID Discharge Orders: Discharge Order (Routine); Ordered 09/01/24 Ordered By: Chauncey Salomon Diet: Advance to usual diet Activity on Discharge: As tolerated Stand Alone Forms: Patient Portal Discharge page Print Language: Kiswahili Care Plan Goals: recovery Health Concerns: etoh dpeendence, low sodium Plan of Treatment: fluid restrict, avoid alcohol Assessment: see above
--- NOTE | 2024-09-01 14:00 | MHC.CM.PN ---
Pt has been medically cleared for DC, she will go home via BLS and resume her services from [facility].
[2024-09-01 15:42] VITALS: BP 122/60; PULSE 97; RESP 18; TEMP 36.4; O2SAT 100
--- OUTSIDE RECORDS SUMMARY | 2024-09-05 14:55 | XMS_ITS | Clinical Summary ---
Author Organization Unknown Care Team Providers Care Bottle Inspector Name Role Phone NAME , BRITTANI Unavailable Unavailable VIVIENNE RN, NAVNEET Unavailable Unavailable VICTORINO KIRK, DIRECTOR FRANCHISE SALES, CHADD Unavail able Unavailable [facility] PERSONAL CARE WORKER, NEIDA Unavailable Unavailable TEGAN RN, EFREN Unavailable Unavailable NATHANAEL ([facility]) [facility] PT, SARAH Unavailable Unavailable Payers Payer Name Policy Type Policy Number Effective Date Expira tion Date [facility] [id number] [place] [id number] [facility] [id number] Problems Condition Name Condition Details Condition Category Status Onset Date Resolution Date Last Treatment Date Treating Clinician Comments PARANOID SCHIZOPHRENI A Active 11-20 00:00: 00 UNSP PSYCHOSIS NOT DUE TO A SUBSTANCE OR KNOWN PHYSIOL COND Active 11-04 00:00: 00 ESSENTIAL (PRIMARY) HYPERTENSION Active 11-20 00:00: 00 MILD INTERMITTENT ASTHMA WITH STATUS ASTHMATICUS Active 11-20 00:00: 00 TYPE 2 DIABETES MELLITUS WITH DIABETIC NEPHROPATHY Active 11-20 00:00: 00 UNSPECIFIED OSTEOARTHRIT IS, UNSPECIFIED SITE Active 11-24 00:00: 00 UNSPECIFIED ABNORMALITIE S OF GAIT AND MOBILITY Active 11-24 00:00: 00 MUSCLE WEAKNESS (GENERALIZED ) Active 11-24 00:00: 00 CHRONIC OBSTRUCTIVE PULMONARY DISEASE W (ACUTE) EXACERBATION Active 01-26 00:00: 00 CHRONIC COMBINED SYSTOLIC AND DIASTOLIC HRT FAIL Active 01-26 00:00: 00 UNSTEADINESS ON FEET Active 01-26 00:00: 00 Allergies, Adverse Reactions, Alerts Allergy Name Allergy Type Status Severity Reaction(s) Onset Date Inactive Date Treating Clinician Comments ADVAIR HFA Propensity to adverse reactions Active 2022-10 13:33:3 1 Medications Ordered Medication Name Filled Medication Name Start Date Stop Date Current Medication? Ordering Clinician Indication Dosage Frequency Signature (SIG) Comments Components baclofen 20 mg tablet 11-04 00:00: 00 Yes [id number] 20 mg NEEDED 20 mg NEEDED (route: oral) Med Classific ation: Locomotor System metoprolol succinate ER 25 mg tablet,exte nded release 24 hr 11-04 00:00: 00 Yes [id number] 25 mg DAILY 25 mg DAILY (route: oral) Med Classific ation: Cardiovas cular Therapy Agents montelukast 10 mg tablet 11-04 00:00: 00 Yes [id number] 10 mg DAILY 10 mg DAILY (route: oral) Med Classific ation: Respirato ry Therapy Agents omeprazole 40 mg capsule,del ayed release 11-04 00:00: 00 11-20 23:59 :00 No [id number] 40 mg DAILY 40 mg DAILY (route: oral) Med Classific ation: Gastroint estinal Therapy Agents pravastatin 20 mg tablet 11-04 00:00: 00 Yes [id number] 20 mg BEDTIME 20 mg BEDTIME (route: oral) Med Classific ation: Cardiovas cular Therapy Agents quetiapine 50 mg tablet 11-04 00:00: 00 03-11 00:00 :00 No [id number] 50 mg 2 TIMES DAILY 50 mg 2 TIMES DAILY (route: oral) Med Classific ation: Central Nervous System Agents trazodone 50 mg tablet 11-04 00:00: 00 11-20 23:59 :00 No [id number] 50 mg BEDTIME 50 mg BEDTIME (route: oral) Med Classific ation: Central Nervous System Agents albuterol sulfate 2.5 mg/3 mL (0.083 %) solution for nebulizatio n 11-20 00:00: 00 Yes [id number] 2.5 mg NEEDED 2.5 mg NEEDED (route: inhalation ) Med Classific ation: Respirato ry Therapy Agents albuterol sulfate HFA 90 mcg/actuati on aerosol inhaler 11-20 00:00: 00 Yes [id number] 2 puff NEEDED 2 puff NEEDED (route: inhalation ) Med Classific ation: Respirato ry Therapy Agents aspirin 81 mg tablet,mina yed release 11-20 00:00: 00 Yes [id number] 81 mg DAILY 81 mg DAILY (route: oral) Med Classific ation: Hematolog ical Agents fluticasone propionate 220 mcg/actuati on HFA aerosol inhaler 11-20 00:00: 00 Yes [id number] 1 puff 2 TIMES DAILY 1 puff 2 TIMES DAILY (route: inhalation ) Med Classific ation: Respirato ry Therapy Agents folic acid 1 mg tablet 11-20 00:00: 00 Yes [id number] 1 mg DAILY 1 mg TAMARA Y (route: oral) Med Classific ation: Electroly te Balance-N utritiona l Products multivitami n tablet 11-20 00:00: 00 Yes [id number] 1 tablet DAILY 1 tablet DAILY (route: oral) Med Classific ation: Electroly te Balance-N utritiona l Products omeprazole 20 mg capsule,del ayed release 11-20 00:00: 00 12-29 23:59 :00 No [id number] 20 mg DAILY 20 mg DAILY (route: oral) Med Classific ation: Gastroint estinal Therapy Agents ondansetron 4 mg disintegrat ing tablet 11-20 00:00: 00 Yes [id number] 4 mg NEEDED 4 mg NEEDED (route: oral) Med Classific ation: Gastroint estinal Therapy Agents Senna Lax 8.6 mg tablet 11-20 00:00: 00 Yes [id number] 8.6 mg NEEDED 8.6 mg NEEDED (route: oral) Med Classific ation: Gastroint estinal Therapy Agents thiamine HCl (vitamin B1) 100 mg tablet 11-20 00:00: 00 Yes [id number] 100 mg DAILY 100 mg DAILY (route: oral) Med Classific ation: Electroly te Balance-N utritiona l Products omeprazole 40 mg capsule,del ayed release 12-29 00:00: 00 Yes [id number] 40 mg DAILY 40 mg DAILY (route: oral) Med Classific ation: Gastroint estinal Therapy Agents cefuroxime axetil 500 mg tablet 02-02 00:00: 00 03-11 23:59 :00 No [id number] 1 tablet 2 TIMES DAILY 1 tablet 2 TIMES DAILY (route: oral) Med Classific ation: Anti-Infe ctive Agents prednisone 10 mg tablet 02-02 00:00: 00 03-11 23:59 :00 No [id number] Per instruc tions DAILY Per instructio ns DAILY (route: oral) Med Classific ation: Endocrine ferrous sulfate 325 mg (65 mg iron) tablet 03-11 00:00: 00 Yes [id number] 1 tablet DAILY 1 tablet DAILY (route: oral) Med Classific ation: Electroly te Balance-N utritiona l Products quetiapine 50 mg tablet 03-11 00:00: 00 Yes [id number] 1 tablet 3 TIMES DAILY 1 tablet 3 TIMES DAILY (route: oral) Med Classific ation: Central Nervous System Agents trazodone 50 mg tablet 03-11 00:00: 00 Yes [id number] 1 tablet DAILY 1 tablet DAILY (route: oral) Med Classific ation: Central Nervous System Agents Plan of Treatment Planned Activity Planned Date Details Comments Future Scheduled Test SKILLED NU RSE TO EVALUATE PATIENT, IDENTIFY PRIMARY AND CO-MORBID CONDITIONS CODED PER CODING GUIDELINES, AND DEVELOP PATIENT SPECIFIC PLAN OF CARE THAT INCLUDES PATIENT GOAL FOR HOME HEALTH. PATIENT REQUIRES RETIREMENT VISITS DAILY FOR MEDICATION ADMINISTRATION AND PRE POUR, EDUCATION RELATED TO THE DISEASE PROCESS, DIABETIC MONITORING, EDUCATION RELATED TO THE DISEASE PROCESS, VITAL SIGN, COPING SKILL REVIEW, ASSESSMENT AND OBSERVATION OF MENTAL, PHYSICAL AND PSYCHOSOCIAL STATUS [code = SKILLED NURSE TO EVALUATE PATIENT, IDENTIFY PRIMARY AND CO-MORBID CONDITIONS CODED PER CODING GUIDELINES, AND DEVELOP PATIENT SPECIFIC PLAN OF CARE THAT INCLUDES PATIENT GOAL FOR HOME HEALTH. PATIENT REQUIRES RETIREMENT VISITS DAILY FOR MEDICATION ADMINISTRATION AND PRE POUR, EDUCATION RELATED TO THE DISEASE PROCESS, DIABETIC MONITORING, EDUCATION RELATED TO THE DISEASE PROCESS, VITAL SIGN, COPING SKILL REVIEW, ASSESSMENT AND OBSERVATION OF MENTAL, PHYSICAL AND PSYCHOSOCIAL STATUS ] Future Scheduled Test SKILLED NU RSE TO INSTRUCT PATIENT/CAREGIVER ON COPD TO INCLUDE USE OF [facility] FOR TEACHING AND SELF-MANAGEMENT RELATED TO COPD DISEASE PROCESS, SIGNS AND SYMPTOMS, AND COMPLICATIONS. [code = SKILLED NURSE TO INSTRUCT PATIENT/CAREGIVER ON COPD TO INCLUDE USE OF [facility] FOR TEACHING AND SELF-MANAGEMENT RELATED TO COPD DISEASE PROCESS, SIGNS AND SYMPTOMS, AND COMPLICATIONS.] Future Scheduled Test SKILLED NU RSE FOR O/A, USE OF [facility] FOR TEACHING AND SELF-MANAGEMENT RELATED TO HEART FAILURE. INSTRUCT PATIENT/CAREGIVER ON SIGNS AND SYMPTOMS OF EXACERBATION TO REPORT. WEIGHT TO BE OBTAINED (SPECIFY FREQUENCY) AND WEIGHT GAIN OF 2 LBS OVERNIGHT OR 5 LBS IN 1 WEEK TO BE REPORTED TO PHYSICIAN. IF UNABLE TO WEIGH PATIENT, SKILLED NURSE TO OBTAIN MEASUREMENT OF (SPECIFY SITE) IN CM AT EACH VISIT AND REPORT AN INCREASE OF 1 CM TO PHYSICIAN. [code = SKILLED NURSE FOR O/A, USE OF [facility] FOR TEACHING AND SELF-MANAGEMENT RELATED TO HEART FAILURE. INSTRUCT PATIENT/CAREGIVER ON SIGNS AND SYMPTOMS OF EXACERBATION TO REPORT. WEIGHT TO BE OBTAINED (SPECIFY FREQUENCY) AND WEIGHT GAIN OF 2 LBS OVERNIGHT OR 5 LBS IN 1 WEEK TO BE REPORTED TO PHYSICIAN. IF UNABLE TO WEIGH PATIENT, SKILLED NURSE TO OBTAIN MEASUREMENT OF (SPECIFY SITE) IN CM AT EACH VISIT AND REPORT AN INCREASE OF 1 CM TO PHYSICIAN.] Future Scheduled Test SKILLED NU RSE FOR O/A AND TEACHING OF DIABETIC MANAGEMENT INCLUDING (PARTICIPATION IN [facility] SPECIALTY PROGRAM), BLOOD SUGAR MONITORING/USE OF GLUCOMETER, DIABETIC DIET, LOWER EXTREMITY SKIN INSPECTION, PROPER SKIN/FOOT CARE, AND SIGNS AND SYMPTOMS HYPO/HYPERGLYCEMIA TO REPORT. [code = SKILLED NURSE FOR O/A AND TEACHING OF DIABETIC MANAGEMENT INCLUDING (PARTICIPATION IN [facility] SPECIALTY PROGRAM), BLOOD SUGAR MONITORING/USE OF GLUCOMETER, DIABETIC DIET, LOWER EXTREMITY SKIN INSPECTION, PROPER SKIN/FOOT CARE, AND SIGNS AND SYMPTOMS HYPO/HYPERGLYCEMIA TO REPORT.] Future Scheduled Test SKILLED NU RSE TO PERFORM HOME SAFETY AND FALL ASSESSMENT AND PROVIDE INSTRUCTION TO IMPLEMENT HOME SAFETY AND FALL PREVENTION STRATEGIES. [code = SKILLED NURSE TO PERFORM HOME SAFETY AND FALL ASSESSMENT AND PROVIDE INSTRUCTION TO IMPLEMENT HOME SAFETY AND FALL PREVENTION STRATEGIES.] Future Scheduled Test SKILLED NU RSE FOR OBSERVATION AND ASSESSMENT OF PATIENTS PAIN LEVEL AND EFFECTIVENESS OF PAIN MANAGEMENT REGIMEN. SKILLED NURSE TO INSTRUCT PATIENT/CAREGIVER REGARDING PHARMACOLOGIC AND NON-PHARMACOLOGIC PAIN CONTROL MEASURES. SKILLED NURSE TO REPORT TO PHYSICIAN IF PAIN IS UNCONTROLLED WITH CURRENT PAIN MANAGEMENT REGIMEN. [code = SKILLED NURSE FOR OBSERVATION AND ASSESSMENT OF PATIENTS PAIN LEVEL AND EFFECTIVENESS OF PAIN MANAGEMENT REGIMEN. SKILLED NURSE TO INSTRUCT PATIENT/CAREGIVER REGARDING PHARMACOLOGIC AND NON-PHARMACOLOGIC PAIN CONTROL MEASURES. SKILLED NURSE TO REPORT TO PHYSICIAN IF PAIN IS UNCONTROLLED WITH CURRENT PAIN MANAGEMENT REGIMEN.] Future Scheduled Test SKILLED NU RSE TO ASSESS PATIENT'S SKIN INTEGRITY AND INSTRUCT PATIENT/CAREGIVER ON MEASURES TO PREVENT PRESSURE ULCERS. [code = SKILLED NURSE TO ASSESS PATIENT'S SKIN INTEGRITY AND INSTRUCT PATIENT/CAREGIVER ON MEASURES TO PREVENT PRESSURE ULCERS.] Future Scheduled Test SKILLED NU RSE TO O/A OF PATIENTS MENTAL/BEHAVIORAL STATUS, ASSESS VITAL SIGNS DAILY, ALLOW 2 PRNS FOR MEDICATION MANAGEMENT. [code = SKILLED NURSE TO O/A OF PATIENTS MENTAL/BEHAVIORAL STATUS, ASSESS VITAL SIGNS DAILY, ALLOW 2 PRNS FOR MEDICATION MANAGEMENT.] Future Scheduled Test SKILLED NU RSE FOR O/A OF GENERAL HEALTH STATUS OF PAIN, CARDIAC, RESPIRATORY, GASTROINTESTINAL, GENITOURINARY, SKIN, NEUROLOGIC, ENDOCRINE SYSTEMS TO IDENTIFY CHANGES ASSOCIATED WITH EXACERBATION FOR EARLY INTERVENTION OF COMPLICATIONS DAILY [code = SKILLED NURSE FOR O/A OF GENERAL HEALTH STATUS OF PAIN, CARDIAC, RESPIRATORY, GASTROINTESTINAL, GENITOURINARY, SKIN, NEUROLOGIC, ENDOCRINE SYSTEMS TO IDENTIFY CHANGES ASSOCIATED WITH EXACERBATION FOR EARLY INTERVENTION OF COMPLICATIONS DAILY ] Future Scheduled Test SKILLED NU RSE TO ADMINISTER MEDICATIONS AND PRE-POUR MEDICATIONS DAILY PER MEDICATION LIST. [code = SKILLED NURSE TO ADMINISTER MEDICATIONS AND PRE-POUR MEDICATIONS DAILY PER MEDICATION LIST.] Future Scheduled Test PATIENT MA Y HAVE ONE SET OF EMERGENCY MEDICATION NOT TO BE PRE-POURED ANY SOONER THAN 24 HOURS BEFORE SEVERE INCLEMENT WEATHER AND FOLLOWING SKILLED NURSE EVALUATION OF PATIENT SAFETY. [code = PATIENT MAY HAVE ONE SET OF EMERGENCY MEDICATION NOT TO BE PRE-POURED ANY SOONER THAN 24 HOURS BEFORE SEVERE INCLEMENT WEATHER AND FOLLOWING SKILLED NURSE EVALUATION OF PATIENT SAFETY.] Future Scheduled Test SKILLED NU RSE FOR O/A OF ALTERED THOUGHT PROCESS AND/OR DISRUPTION IN COGNITIVE OPERATIONS AND ACTIVITIES [code = SKILLED NURSE FOR O/A OF ALTERED THOUGHT PROCESS AND/OR DISRUPTION IN COGNITIVE OPERATIONS AND ACTIVITIES ] Future Scheduled Test SKILLED NU RSE FOR O/A OF SIGNS AND SYMPTOMS OF SUBSTANCE USE INCLUDING PARTICIPATION IN [facility] SPECIALTY PROGRAM. INSTRUCT PATIENT ON RELATED RISKS AND WILL NOTIFY TREATMENT TEAM NEEDED. [code = SKILLED NURSE FOR O/A OF SIGNS AND SYMPTOMS OF SUBSTANCE USE INCLUDING PARTICIPATION IN [facility] SPECIALTY PROGRAM. INSTRUCT PATIENT ON RELATED RISKS AND WILL NOTIFY TREATMENT TEAM NEEDED.] Future Scheduled Test SKILLED NU RSE FOR O/A AND SKILLED TEACHING RELATED TO MANAGEMENT OF DEPRESSIVE SYMPTOMS AND/OR DEPRESSION. SN TO REPORT SIGNIFICANT CHANGE IN DEPRESSIVE SYMPTOMS TO CLINICAL PROVIDER FOR EARLY INTERVENTION. [code = SKILLED NURSE FOR O/A AND SKILLED TEACHING RELATED TO MANAGEMENT OF DEPRESSIVE SYMPTOMS AND/OR DEPRESSION. SN TO REPORT SIGNIFICANT CHANGE IN DEPRESSIVE SYMPTOMS TO CLINICAL PROVIDER FOR EARLY INTERVENTION.] Future Scheduled Test MEDICATION S WILL BE HELD AND STORED IN LOCKBOX [code = MEDICATIONS WILL BE HELD AND STORED IN LOCKBOX] Future Scheduled Test SKILLED NU RSE MAY PICKUP AND TRANSPORT MEDICATIONS [code = SKILLED NURSE MAY PICKUP AND TRANSPORT MEDICATIONS] Future Scheduled Test SKILLED NU RSE FOR O/A OF CLIENT'S MEDICATION REGIMEN AND RESPONSE TO ORDERED MEDS. MAY TEACH NEW / CHANGED MEDICATIONS WHEN KNOWLEDGE BASE DEFICITS ARE IDENTIFIED. [code = SKILLED NURSE FOR O/A OF CLIENT'S MEDICATION REGIMEN AND RESPONSE TO ORDERED MEDS. MAY TEACH NEW / CHANGED MEDICATIONS WHEN KNOWLEDGE BASE DEFICITS ARE IDENTIFIED.] Future Scheduled Test SKILLED NU RSE FOR O/A OF CLIENT'S ALTERED PSYCHOSOCIAL BEHAVIOR [code = SKILLED NURSE FOR O/A OF CLIENT'S ALTERED PSYCHOSOCIAL BEHAVIOR] Future Scheduled Test SKILLED NU RSE FOR O/A OF CLIENT'S SOCIAL ISOLATION AND PROVIDE ASSISTANCE TO CLIENT IN DEVELOPMENT OF PLANNED ACTIVITIES [code = SKILLED NURSE FOR O/A OF CLIENT'S SOCIAL ISOLATION AND PROVIDE ASSISTANCE TO CLIENT IN DEVELOPMENT OF PLANNED ACTIVITIES] Goal 2023-01-14 Patient Goal - TAKING MY MED S Goal 2023-03-18 Patient Goal - TAKING MY MED S Goal 2023-05-17 Patient Goal - T O STAY OUT OF THE HOSPITAL THROUGH NEXT EPISODE Goal 2023-06-10 Patient Goal - T O STAY OUT OF THE HOSPITAL THROUGH NEXT EPISODE Goal Provider Goal - A PLAN OF CARE WILL BE ESTABLISHED THAT MEETS PATIENT'S RETIREMENT NEEDS AND INCLUDES PATIENT GOAL FOR HOME HEALTH. Goal Provider Goal - PATIENT/CAREGIVER WILL VERBALIZE/DEMONSTRATE UTILIZATION OF TOOLS ASSOCIATED WITH THE [facility]MON[facility] SPECIALTY PROGRAM, AND/OR KNOWLEDGE AND MANAGEMENT OF COPD BY END OF EPISODE. Goal Provider Goal - PATIENT/CAREGIVER WILL VERBALIZE/DEMONSTRATE UTILIZATION OF TOOLS ASSOCIATED WITH THE [facility] MATTERS OF THE HEART SPECIALTY PROGRAM, AND/OR KNOWLEDGE AND MANAGEMENT OF HEART FAILURE DISEASE PROCESS BY END OF EPISODE. Goal Provider Goal - PATIENT/CAREGIVER WILL VERBALIZE/DEMONSTRATE (UTILIZATION OF TOOLS ASSOCIATED WITH THE [place] SPECIALTY PROGRAM), KNOWLEDGE OF DIABETIC MANAGEMENT. CHANGES IN DIABETIC STATUS WILL BE IDENTIFIED AND REPORTED TO PHYSICIAN FOR PROMPT INTERVENTION THROUGHOUT THE CERTIFICATION PERIOD. Goal Provider Goal - PATIENT/CAREGIVER WILL VERBALIZE/DEMONSTRATE EFFECTIVE HOME SAFETY AND FALL PREVENTION STRATEGIES THROUGHOUT CERTIFICATION PERIOD. Goal Provider Goal - PATIENT/CAREGIVER WILL DEMONSTRATE UNDERSTANDING OF PHARMACOLOGIC AND NONPHARMACOLOGIC PAIN CONTROL MEASURES AND PATIENT WILL HAVE IMPROVEMENT IN PAIN INTERFERING WITH ACTIVITY EVIDENCED BY PAIN CONTROLLED AT LEVEL OF 4 OR LESS BY END OF CERTIFICATION PERIOD. Goal Provider Goal - PATIENT/CAREGIVER WILL VERBALIZE UNDERSTANDING OF PRESSURE ULCER PREVENTION BY END OF THE EPISODE. Goal Provider Goal - ALTERED MENTAL/BEHAVIORAL STATUS WILL BE IDENTIFIED PROMPTLY AND INTERVENTION INITIATED QUICKLY TO MINIMIZE ASSOCIATED RISKS Goal Provider Goal - CHANGE IN GENERAL HEALTH STATUS WILL BE IDENTIFIED AND REPORTED TO PHYSICIAN FOR PROMPT INTERVENTION TO MINIMIZE ASSOCIATED RISKS THROUGHOUT CERTIFICATION PERIOD. Goal Provider Goal - PATIENT WILL COMPLY WITH MEDICATION WHEN SKILLED NURSE ADMINISTERS AND PRE-POURS MEDICATION. Goal Provider Goal - Goal Provider Goal - PATIENT WILL BE ABLE TO PERFORM DAILY FUNCTIONS AND HAVE OPTIMAL IMPROVEMENT IN THOUGHT PROCESS Goal Provider Goal - PATIENT WILL REMAIN SAFE IN COMMUNITY AND WILL ACKNOWLEDGE RELATED RISKS OF SUBSTANCE USE. Goal Provider Goal - PATIENT WILL REMAIN SAFE WITHOUT DECOMPENSATION IN DEPRESSIVE CONDITION, WHILE MAINTAINING OPTIMAL LEVEL OF MENTAL HEALTH AND WELL BEING. Goal Provider Goal - Goal Provider Goal - Goal Provider Goal - PATIENT WILL VERBALIZE INCREASED KNOWLEDGE OF CURRENT MEDICATION REGIMEN DURING THE CERTIFICATION PERIOD. Goal Provider Goal - PATIENT WILL VERBALIZE ACCEPTANCE OF ALTERED PSYCHOSOCIAL BEHAVIOR AND WILL BE ACCEPTING OF CARGIVER'S ASSISTANCE IN THERAPEUTIC APPROACH TO WELLNESS. Goal Provider Goal - PATIENT WILL DEMONSTRATE AN INCREASED INTEREST IN SOCIALIZATION AND ACTIVITIES BY THE END OF THE CERTIFICATION PERIOD. Reason for Visit MODERATE ASSIST WITH TRANSFER/AMBULATION/ADLS Encounters Start Date/Time End Date/Time Encounter Type Admission Type Attending [facility] Care Facility Care Department Encounter ID Discharge Date Discharge Status Discharge Condition Discharge Reason Percent Goals Met 2022-11-20 00:00:00 2023-06-10 00:00:00 Outpatient RECERTIFIC ATION ZEUSCASEI CHADD [facility] [id number] 2023-06-10 00:00:00 DISCHARGED /TRANSFERR ED TO ANOTHER TYPE OF HEALTH CARE INSTITUTIO N NOT DEFINED ELSEWHERE IN THIS CODE LIST MODERATE ASSIST WITH TRANSFER/A MBULATION/ ADLS PER CLIENT REQUEST
== END 2024-09-01 16:41 | disposition home or self-care (01) | DRG 641 ==
LOC: HO.ED 14:23 → HO.EDOVER 14:29 → HO.ICU 15:10 → HO.IMC 08-30 14:32
PROVIDERS: Registered Nurse Community Health; Admitting Provider Internal Medicine Pulmonary Disease; Emergency Provider Emergency Medicine; PCP Internal Medicine Geriatric Medicine; Visit Provider Internal Medicine
DX: E87.1 Hypo-osmolality and hyponatremia (principal); N39.0 Urinary tract infection, site not specified; F31.9 Bipolar disorder, unspecified; F10.26 Alcohol dependence with alcohol-induced persisting amnestic disorder; J44.9 Chronic obstructive pulmonary disease, unspecified; Z79.51 Long term (current) use of inhaled steroids; Z79.82 Long term (current) use of aspirin; Z79.899 Other long term (current) drug therapy
CPT/HCPCS: 36415; 70450; 72125; 73030; 73564; 80048; 80053; 80076; 80307; 81001; 82040; 82140; 82272; 82550; 82803; 82947; 83605; 83690; 83735; 84100; 84484; 85025; 85027; 85610; 86850; 86900; 86901; 87040; 93005; 99285; C1758; J1171; J1335; J1644; J2185; J2470; J3411; J7131; P9047

== ENCOUNTER → 2024-08-29 12:46 | Outpatient (BNV) | payer OTHER, SELFPAY | PROVIDERS: Admitting Provider Internal Medicine Pulmonary Disease; Emergency Provider Emergency Medicine; PCP Internal Medicine Geriatric Medicine; Visit Provider Internal Medicine Cardiovascular Disease | DX: R94.31 Abnormal electrocardiogram [ECG] [EKG] (principal) | CPT/HCPCS: 93010 ==

== ENCOUNTER → 2024-08-29 12:47 | Outpatient (BNV) | payer OTHER, SELFPAY | PROVIDERS: Admitting Provider Internal Medicine Pulmonary Disease; Emergency Provider Emergency Medicine; PCP Internal Medicine Geriatric Medicine; Visit Provider Radiology Diagnostic Radiology | DX: S80.911A Unspecified superficial injury of right knee, initial encounter (principal); S80.912A Unspecified superficial injury of left knee, initial encounter; R41.82 Altered mental status, unspecified; S49.91XA Unspecified injury of right shoulder and upper arm, initial encounter | CPT/HCPCS: 70450; 73030; 73564 ==

== ENCOUNTER → 2024-08-29 14:17 | Outpatient (BNV) | payer OTHER, SELFPAY | PROVIDERS: Admitting Provider Internal Medicine Pulmonary Disease; Emergency Provider Emergency Medicine; PCP Internal Medicine Geriatric Medicine; Visit Provider Internal Medicine | DX: E87.1 Hypo-osmolality and hyponatremia (principal) | CPT/HCPCS: 99232; 99239 ==

== ENCOUNTER → 2024-08-29 14:17 | Outpatient (BNV) | payer OTHER, SELFPAY | PROVIDERS: Admitting Provider Internal Medicine Pulmonary Disease; Emergency Provider Emergency Medicine; PCP Internal Medicine Geriatric Medicine; Visit Provider Internal Medicine Pulmonary Disease | DX: F10.96 Alcohol use, unspecified with alcohol-induced persisting amnestic disorder (principal); E87.1 Hypo-osmolality and hyponatremia; F31.9 Bipolar disorder, unspecified | CPT/HCPCS: 99223; 99232 ==

== ENCOUNTER 2024-09-04 14:50 | Emergency (ER) | payer OTHER, SELFPAY ==
[2024-09-04 14:55] VITALS: BP 112/60; PULSE 88; O2SAT 100; BMI 25.6
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
[2024-09-04 17:10] LABS: Hemoglobin 7.4 g/dl (12.0-16.0); Mean Corpuscular HGB Conc 33.6 g/dl (31.0-35.0); Mean Corpuscular Hemoglobin 29.2 pg (27.0-33.0); Mean Platelet Volume 8.4 fL (9.4-12.3); Platelet Count 319 X10*3/uL (160-400); Red Blood Count 2.53 X10*6/uL (4.20-5.50); Red Cell Distribution Width 15.9 % (11.0-16.0); White Blood Count 7.8 X10*3/uL (4.8-10.8)
[2024-09-04 17:24] LABS: Ammonia 27 umol/L (13-55)
[2024-09-04 17:30] VITALS: BP 101/47; PULSE 84; RESP 18; TEMP 36.8; O2SAT 97
[2024-09-04 17:34] LABS: Alanine Aminotransferase 6 U/L (0-31); Albumin Level 2.8 g/dL (3.5-5.0); Alkaline Phosphatase 68 U/L (39-117); Anion Gap 8 (12-20); Aspartate Amino Transferase 28 U/L (5-31); Bilirubin Direct < 0.2 mg/dL (0.0-0.5); Bilirubin Total 0.2 mg/dL (0.0-1.0); Blood Urea Nitrogen 20 mg/dL (9-16); Calcium 8.4 mg/dL (8.4-10.2); Carbon Dioxide 26 mmol/L (22-29); Chloride 100 mmol/L (96-108); Creatinine Clr Calc Pharmacy 51.9; Estimated Glomerular Filt Rate > 60; Ethanol < 10 mg/dL; Glucose Random 97 mg/dL (60-115); Lipase 39 U/L (8-78); Magnesium 2.4 mg/dL (1.6-2.6); Potassium 5.3 mmol/L (3.3-5.1); Sodium 129 mmol/L (135-145); Total Protein 6.1 g/dL (6.5-8.0)
[2024-09-04 17:48] LABS: Band Neutrophils Percent 2 % (3-5); Basophils Abs Manual 0.1 X10*3/uL (0.0-0.2); Basophils Percent Manual 1 % (0-2); Eosinophils Absolute Manual 0.2 X10*3/uL (0.0-0.4); Eosinophils Percent Manual 3 % (0-4); Lymphocytes Absolute Manual 2.1 X10*3/uL (1.2-4.9); Lymphocytes Percent Manual 27 % (20-40); Metamyelocytes Absolute 0.2 X10*3/uL; Metamyelocytes Percent 2 %; Monocytes Absolute Manual 0.2 X10*3/uL (0.1-1.2); Monocytes Percent Manual 2 % (2-11); Myelocytes Absolute 0.3 X10*/uL; Myelocytes Percent 4 %; Neutrophils Absolute Manual 4.8 X10*3/uL (2.0-8.3); Neutrophils Percent Manual 59 % (45-73)
[2024-09-04 17:49] LABS: Microcytosis 2+ (15-30) /OIF; Platelet Estimate NORMAL (NORMAL); Platelet Morphology Comment NORMAL; RBC Morphology NOTED
[2024-09-04 17:50] LABS: Spherocytes 1+ (0-2) /OIF
[2024-09-04 17:51] LABS: Acanthocytes 1+ (0-2) /OIF; Basophilic Stippling 2+ (3-5) /OIF; Hypochromasia 1+ (5-14) /OIF; Polychromasia 1+ (0-2) /OIF; Target Cells 1+ (5-14) /OIF
[2024-09-04 19:30] VITALS: BP 123/64; PULSE 75
[2024-09-05] VITALS (8 sets, daily range): BP systolic 107–168; BP diastolic 47–68; PULSE 64–86; RESP 14–21; TEMP 36.6–36.9; O2SAT 95–100
--- NOTE | 2024-09-05 05:32 | PC.NURSE ---
I assumed care of patient at 03:00 am. Patient is awake, answers questions appropriately. Patient is forgetful at times, she could not recall current date. VSS. Patient denies any pain. CIWA score 1, no s/s of ETOH withdrawal noted. Patient requested a vanilla pudding, provided and tolerated well. Patient currently resting in a stretcher bed, call jones in reach, plan of care ongoing.
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
[2024-09-05 10:39] LABS: COVID-19 Test Negative (Negative); IDNOW Serial# 6674DD1D
[2024-09-05] MEDS: Albuterol Sulfate (0.083%) 2.5 MG/3 ML VIAL.NEB INHALE (11:43)
--- NOTE | 2024-09-05 11:44 | PHA.MEDREC ---
Addendum entered by Tala Berg RPh 09/05/24 11:51: reviewed by [facility]. Original Note: Pharmacy Consult ? Medication Reconciliation Pharmacy has reviewed the medication reconciliation done by nursing. Utilized claims and medbox list from [facility] pharmacy to confirm med list.
[2024-09-05] MEDS: Multivitamin TABLET 1 TAB PO (12:07)
[2024-09-05] MEDS: Omeprazole 40 MG CAPSULE.DR PO (12:07)
[2024-09-05] MEDS: Ferrous Sulfate 324 MG TABLET.DR PO (12:07)
[2024-09-05] MEDS: Metoprolol Succinate ER 25 MG TAB.ER.24H PO (12:07)
[2024-09-05] MEDS: Aspirin Enteric Coated 81 MG TABLET.DR PO (12:08)
--- NOTE | 2024-09-05 17:23 | MHC.EDTECH ---
pt agressive and screaming
--- NOTE | 2024-09-05 17:28 | PC.NURSE ---
Pt has been assisted mult times for incontinence. PLaced in hospital bed. NAD. oriented to person/place. need reorientation to plan often.
--- NOTE | 2024-09-05 17:32 | PC.NURSE ---
rn to rn with Shanika in OV.
[2024-09-05] MEDS: Albuterol Sulfate 90 MCG 8 GM INHALER 2 PUFF INHALE (19:30)
[2024-09-05] MEDS: Montelukast Sodium 10 MG TABLET PO (20:13)
[2024-09-05] MEDS: Acamprosate Calcium 333 MG TABLET.DR 666 MG PO (20:13)
[2024-09-05] MEDS: Pravastatin Sodium 20 MG TABLET PO (20:23)
[2024-09-05] MEDS: traZODone HCL 50 MG TABLET PO (20:25)
--- NOTE | 2024-09-05 22:10 | PC.NURSE ---
Applied brief from home for patient at her request. Patient skin is clean dry and intact at this time.
[2024-09-06] MEDS: Acetaminophen 325 MG TABLET 650 MG PO (05:20)
[2024-09-06] MEDS: Omeprazole 40 MG CAPSULE.DR PO (05:20)
[2024-09-06] MEDS: Albuterol Sulfate 90 MCG 8 GM INHALER 2 PUFF INHALE (05:22)
[2024-09-06 05:37] VITALS: BP 131/63; PULSE 73; RESP 18; TEMP 37.2; O2SAT 98
[2024-09-06] MEDS: Aspirin Enteric Coated 81 MG TABLET.DR PO (07:55)
[2024-09-06] MEDS: Acamprosate Calcium 333 MG TABLET.DR 666 MG PO ×3 (07:55→21:18)
[2024-09-06] MEDS: Multivitamin TABLET 1 TAB PO (07:56)
[2024-09-06] MEDS: Ferrous Sulfate 324 MG TABLET.DR PO (07:56)
[2024-09-06] MEDS: Metoprolol Succinate ER 25 MG TAB.ER.24H PO (07:56)
[2024-09-06 09:04] VITALS: PULSE 73; RESP 18; O2SAT 98
[2024-09-06] MEDS: Fluticasone/Vilanterol 100/25 BLST.W.DEV 1 PUFF INHALE (09:08)
--- NOTE | 2024-09-06 13:03 | MHC.CM.ED ---
Patient remains in ER overflow. [facility] is able to offer a bed. Spoke with Juanjo via telephone at [phone]. Juanjo was hoping for a facility closer. T/W explained a closer LTC bed was not available at this time. Juanjo agreeable to patient going to [facility]. [facility] is in the process of obtaining insurance auth. Patient will need [facility] PASRR Level 2. T/W will submit Level 1. Continue to monitor for d/c needs.
[2024-09-06 14:00] VITALS: BP 129/62; PULSE 72; RESP 17; TEMP 36.9; O2SAT 98
--- OUTSIDE RECORDS SUMMARY | 2024-09-06 16:26 | XMS_ITS | Clinical Summary ---
Author Organization Unknown Care Team Providers Care Maintenance Tech Name Role Phone NAME , BRITTANI Unavailable Unavailable VIVIENNE RN, NAVNEET Unavailable Unavailable VICTORINO KIRK, PERSONAL INVESTMENT ADVISER, CHADD Unavail able Unavailable THERON ASSISTANT CUSTOMER SERVICE MANAGER, NEIDA Unavailable Unavailable TEGAN RN, EFREN Unavailable Unavailable NATHANAEL ([facility]) [facility] - PT, SARAH Unavailable Unavailable Payers Payer Name Policy Type Policy Number Effective Date Expira tion Date [facility] [id number] [place] [id number] MEDICARE - [facility] - [facility] [id number] Problems Condition Name Condition Details Condition Category [...] 20 mg tablet 11-04 00:00: 00 Yes [id number] 20 mg NEEDED 20 mg NEEDED (route: oral) Med Classific ation: Locomotor System metoprolol succinate ER 25 mg tablet,exte nded release 24 hr 11-04 00:00: 00 Yes [id number] 25 mg DAILY 25 mg DAILY (route: oral) Med Classific ation: Cardiovas cular Therapy Agents montelukast 10 mg tablet 11-04 00:00: 00 Yes [id number] 10 mg DAILY 10 mg DAILY (route: oral) Med Classific ation: Respirato ry Therapy Agents omeprazole 40 mg capsule,del ayed release 11-04 00:00: 00 11-20 23:59 :00 No [id number] 40 mg DAILY 40 mg DAILY (route: oral) Med Classific ation: Gastroint estinal Therapy Agents pravastatin 20 mg tablet 11-04 00:00: 00 Yes [id number] 20 mg BEDTIME 20 mg BEDTIME (route: oral) Med Classific ation: Cardiovas cular Therapy Agents quetiapine 50 mg tablet 11-04 00:00: 00 03-11 00:00 :00 No [id number] 50 mg 2 TIMES DAILY 50 mg 2 TIMES DAILY (route: oral) Med Classific ation: Central Nervous System Agents trazodone 50 mg tablet 11-04 00:00: 00 11-20 23:59 :00 No [id number] 50 mg BEDTIME 50 mg BEDTIME (route: oral) Med Classific ation: Central Nervous System Agents albuterol sulfate 2.5 mg/3 mL (0.083 %) solution for nebulizatio n 11-20 00:00: 00 Yes [id number] 2.5 mg NEEDED 2.5 mg NEEDED (route: inhalation ) Med Classific ation: Respirato ry Therapy Agents albuterol sulfate HFA 90 mcg/actuati on aerosol inhaler 11-20 00:00: 00 Yes [id number] 2 puff NEEDED 2 puff NEEDED (route: inhalation ) Med Classific ation: Respirato ry Therapy Agents aspirin 81 mg tablet,mina yed release 11-20 00:00: 00 Yes [id number] 81 mg DAILY 81 mg DAILY (route: oral) Med Classific ation: Hematolog ical Agents fluticasone propionate 220 mcg/actuati on HFA aerosol inhaler 11-20 00:00: 00 Yes [id number] 1 puff 2 TIMES DAILY 1 puff 2 TIMES DAILY (route: inhalation ) Med Classific ation: Respirato ry Therapy Agents folic acid 1 mg tablet 11-20 00:00: 00 Yes [id number] 1 mg DAILY 1 mg TAMARA Y (route: oral) Med Classific ation: Electroly te Balance-N utritiona l Products multivitami n tablet 11-20 00:00: 00 Yes [id number] 1 tablet DAILY 1 tablet DAILY (route: oral) Med Classific ation: Electroly te Balance-N utritiona l Products omeprazole 20 mg capsule,del ayed release 11-20 00:00: 00 12-29 23:59 :00 No [id number] 20 mg DAILY 20 mg DAILY (route: oral) Med Classific ation: Gastroint estinal Therapy Agents ondansetron 4 mg disintegrat ing tablet 11-20 00:00: 00 Yes [id number] 4 mg NEEDED 4 mg NEEDED (route: oral) Med Classific ation: Gastroint estinal Therapy Agents Senna Lax 8.6 mg tablet 11-20 00:00: 00 Yes [id number] 8.6 mg NEEDED 8.6 mg NEEDED (route: oral) Med Classific ation: Gastroint estinal Therapy Agents thiamine HCl (vitamin B1) 100 mg tablet 11-20 00:00: 00 Yes [id number] 100 mg DAILY 100 mg DAILY (route: oral) Med Classific ation: Electroly te Balance-N utritiona l Products omeprazole 40 mg capsule,del ayed release 12-29 00:00: 00 Yes [id number] 40 mg DAILY 40 mg DAILY (route: oral) Med Classific ation: Gastroint estinal Therapy Agents cefuroxime axetil 500 mg tablet 02-02 00:00: 00 03-11 23:59 :00 No [id number] 1 tablet 2 TIMES DAILY 1 tablet 2 TIMES DAILY (route: oral) Med Classific ation: Anti-Infe ctive Agents prednisone 10 mg tablet 02-02 00:00: 00 03-11 23:59 :00 No [id number] Per instruc tions DAILY Per instructio ns DAILY (route: oral) Med Classific ation: Endocrine ferrous sulfate 325 mg (65 mg iron) tablet 03-11 00:00: 00 Yes [id number] 1 tablet DAILY 1 tablet DAILY (route: oral) Med Classific ation: Electroly te Balance-N utritiona l Products quetiapine 50 mg tablet 03-11 00:00: 00 Yes [id number] 1 tablet 3 TIMES DAILY 1 tablet 3 TIMES DAILY (route: oral) Med Classific ation: Central Nervous System Agents trazodone 50 mg tablet 03-11 00:00: 00 Yes [id number] 1 tablet DAILY 1 tablet DAILY (route: oral) Med Classific ation: Central Nervous System Agents Plan of Treatment Planned Activity Planned Date Details Comments Future Scheduled Test SKILLED NU RSE TO EVALUATE PATIENT, IDENTIFY PRIMARY AND CO-MORBID CONDITIONS CODED PER CODING GUIDELINES, AND DEVELOP PATIENT SPECIFIC PLAN OF CARE THAT INCLUDES PATIENT GOAL FOR HOME HEALTH. PATIENT REQUIRES SENIOR LIVING VISITS DAILY FOR MEDICATION ADMINISTRATION AND PRE [...] PATIENT GOAL FOR HOME HEALTH. PATIENT REQUIRES SENIOR LIVING VISITS DAILY FOR MEDICATION ADMINISTRATION AND PRE POUR, EDUCATION RELATED TO THE DISEASE PROCESS, DIABETIC MONITORING, EDUCATION RELATED TO THE DISEASE PROCESS, VITAL SIGN, COPING SKILL REVIEW, ASSESSMENT AND OBSERVATION OF MENTAL, PHYSICAL AND PSYCHOSOCIAL STATUS ] Future Scheduled Test SKILLED NU RSE TO INSTRUCT PATIENT/CAREGIVER ON COPD TO INCLUDE USE OF [facility] FOR TEACHING AND SELF-MANAGEMENT RELATED TO COPD DISEASE PROCESS, SIGNS AND SYMPTOMS, AND COMPLICATIONS. [code = SKILLED NURSE TO INSTRUCT PATIENT/CAREGIVER ON COPD TO INCLUDE USE OF [facility] FOR TEACHING AND SELF-MANAGEMENT RELATED TO COPD DISEASE PROCESS, SIGNS AND SYMPTOMS, AND COMPLICATIONS.] Future Scheduled Test SKILLED NU RSE FOR O/A, USE OF [facility] FOR [...] = SKILLED NURSE FOR O/A, USE OF [facility] FOR [...] TEACHING OF DIABETIC MANAGEMENT INCLUDING (PARTICIPATION IN [facility] SPECIAL[facility] PRO[facility]), BLOOD SUGAR MONITORING/USE OF GLUCOMETER, DIABETIC DIET, LOWER EXTREMITY SKIN INSPECTION, PROPER SKIN/FOOT CARE, AND SIGNS AND SYMPTOMS HYPO/HYPERGLYCEMIA TO REPORT. [code = SKILLED NURSE FOR O/A AND TEACHING OF DIABETIC MANAGEMENT INCLUDING (PARTICIPATION IN [facility] SPECIALTY PRO[facility]), BLOOD SUGAR MONITORING/USE OF GLUCOMETER, [...] SYMPTOMS OF SUBSTANCE USE INCLUDING PARTICIPATION IN [facility] SPECIALTY PROGRAM. INSTRUCT PATIENT ON RELATED RISKS AND WILL NOTIFY TREATMENT TEAM NEEDED. [code = SKILLED NURSE FOR O/A OF SIGNS AND SYMPTOMS OF SUBSTANCE USE INCLUDING PARTICIPATION IN [facility] SPECIALTY PROGRAM. INSTRUCT PATIENT ON RELATED RISKS [...] CARE WILL BE ESTABLISHED THAT MEETS PATIENT'S SENIOR LIVING NEEDS AND INCLUDES PATIENT GOAL FOR HOME HEALTH. Goal Provider Goal - PATIENT/CAREGIVER WILL VERBALIZE/DEMONSTRATE UTILIZATION OF TOOLS ASSOCIATED WITH THE [facility] CARING PULMONARY SPECIALTY PROGRAM, AND/OR KNOWLEDGE AND MANAGEMENT OF COPD BY END OF EPISODE. Goal Provider Goal - PATIENT/CAREGIVER WILL VERBALIZE/DEMONSTRATE UTILIZATION OF TOOLS ASSOCIATED WITH THE [facility] CARING MATTERS OF THE HEART SPECIALTY PROGRAM, [...] End Date/Time Encounter Type Admission Type Attending [facility] Care Facility Care Department Encounter ID Discharge Date Discharge Status Discharge Condition Discharge Reason Percent Goals Met 2022-11-20 00:00:00 2023-06-10 00:00:00 Outpatient RECERTIFIC ATION ZEUSCASIE CHADD [facility] [id number] 2023-06-10 00:00:00 DISCHARGED /TRANSFERR ED TO ANOTHER TYPE OF HEALTH CARE INSTITUTIO N NOT DEFINED ELSEWHERE IN THIS CODE LIST MODERATE ASSIST WITH TRANSFER/A MBULATION/ ADLS PER CLIENT REQUEST
--- NOTE | 2024-09-06 20:05 | PC.NURSE ---
Pt requested and given food and drink Pt a&ox3, no signs of distress. Pt reports 7/10 arthritis pain Pt boosted and bed for comfort Plan of care ongoing.
[2024-09-06] MEDS: Montelukast Sodium 10 MG TABLET PO (21:18)
[2024-09-06] MEDS: traZODone HCL 50 MG TABLET PO (21:18)
[2024-09-06] MEDS: Pravastatin Sodium 20 MG TABLET PO (21:19)
--- NOTE | 2024-09-06 21:23 | PC.NURSE ---
Pt medicated per [facility] Plan of care ongoing.
--- NOTE | 2024-09-06 21:25 | PC.NURSE ---
Pt requested and cell phone turned off and placed on assistant chief engineer. Plan of care ongoing.
[2024-09-06 22:00] VITALS: BP 111/55; PULSE 74; RESP 14; TEMP 37; O2SAT 97
[2024-09-07] MEDS: Acetaminophen 325 MG TABLET 650 MG PO (00:13)
--- NOTE | 2024-09-07 00:16 | PC.NURSE ---
Pt reporting a headache, requested and given acetaminophen. Plan of care ongoing.
--- NOTE | 2024-09-07 00:22 | PC.NURSE ---
Pt requesting and given cell phone from deputy manager Plan of care ongoing.
--- NOTE | 2024-09-07 02:09 | PC.NURSE ---
Pt requested and TV turned back on. Plan of care ongoing.
[2024-09-07 06:00] VITALS: BP 126/62; PULSE 85; RESP 16; TEMP 37.1; O2SAT 96
[2024-09-07] MEDS: Omeprazole 40 MG CAPSULE.DR PO (06:47)
--- NOTE | 2024-09-07 06:48 | PC.NURSE ---
Pt medicated per [facility] Plan of care ongoing.
[2024-09-07 08:03] VITALS: BP 171/78; PULSE 93; RESP 18; TEMP 37.3; O2SAT 100
[2024-09-07] MEDS: Ferrous Sulfate 324 MG TABLET.DR PO (08:44)
[2024-09-07] MEDS: Metoprolol Succinate ER 25 MG TAB.ER.24H PO (08:44)
[2024-09-07] MEDS: Aspirin Enteric Coated 81 MG TABLET.DR PO (08:44)
[2024-09-07] MEDS: Multivitamin TABLET 1 TAB PO (08:44)
--- NOTE | 2024-09-07 08:52 | PC.NURSE ---
Pt. is tearful and anxious, verbalizing that she misses home and her . Per Yahaira Uribe, TRACTOR ENGINE MECHANIC- OK to administer PRN Ativan for alternate reason: anxiety (Ativan currently ordered for ETOH Withdrawal only).
--- NOTE | 2024-09-07 08:57 | PC.NURSE ---
Per Risa CM: Pt. will go to [facility] in [place] once insurance authorization is obtained. Most likely not until tomorrow, Wednesday, 09/08.
[2024-09-07] MEDS: Acamprosate Calcium 333 MG TABLET.DR 666 MG PO ×3 (09:09→21:59)
[2024-09-07] MEDS: LORazepam 1 MG TABLET 2 MG PO ×2 (09:10→16:03)
--- NOTE | 2024-09-07 09:50 | PC.NURSE ---
Awaiting 08:00 Ilia per pharmacy
--- NOTE | 2024-09-07 10:21 | MHC.CM.ED ---
Patient remains in ER overflow. Level 2 has been obtained. Anticipate auth dulce be available this afternoon. After discussion with Shelli at [facility], will plan on patient leaving for facility tomorrow at 9am. Naveen ISSA booked. Med nec with chart. Patient, sig other/HCP Kyra Geiger RN and Lucy HORTA aware. David of [facility] [employer] made aware via telephone at [phone]. Continue to monitor for d/c needs.
[2024-09-07 14:00] VITALS: BP 110/58; PULSE 89; RESP 17; TEMP 37.4; O2SAT 95
--- NOTE | 2024-09-07 15:43 | PC.NURSE ---
Pt. very tearful about going to rehab instead of going home. OK Per Yahaira Terrazas NP to medicate with PRN Ativan
--- NOTE | 2024-09-07 16:53 | PC.NURSE ---
Pt. is refusing food tray
[2024-09-07] MEDS: Pravastatin Sodium 20 MG TABLET PO (21:59)
[2024-09-07] MEDS: Montelukast Sodium 10 MG TABLET PO (21:59)
[2024-09-07 23:08] VITALS: BP 120/59; PULSE 77; RESP 19; O2SAT 98
--- NOTE | 2024-09-08 00:46 | MHC.EDTECH ---
Complete bed change, patient incontinent of urine and vowels.
[2024-09-08] MEDS: Omeprazole 40 MG CAPSULE.DR PO (05:57)
[2024-09-08 06:21] VITALS: BP 128/61; PULSE 83; RESP 16; TEMP 37.2; O2SAT 97
[2024-09-08 08:40] VITALS: BP 128/63; PULSE 91
[2024-09-08] MEDS: Ferrous Sulfate 324 MG TABLET.DR PO (08:40)
[2024-09-08] MEDS: Metoprolol Succinate ER 25 MG TAB.ER.24H PO (08:40)
[2024-09-08] MEDS: Acamprosate Calcium 333 MG TABLET.DR 666 MG PO (08:41)
[2024-09-08] MEDS: Multivitamin TABLET 1 TAB PO (08:41)
[2024-09-08] MEDS: Aspirin Enteric Coated 81 MG TABLET.DR PO (08:41)
[2024-09-08 08:44] VITALS: RESP 18; TEMP 37.1; O2SAT 98
--- NOTE | 2024-09-08 10:02 | PC.NURSE ---
Pt had[place], asked for papers to leave. She is aware of planned transport to [facility]. VS as noted She denied complaint or pain today. Pt took am meds without issue. She transported via ambulance as planned with pt accepting but weepy. All belongings went with patient. Report called to Lizzette Bess LPN at [place] unit of [facility] accepting RN denied questions at completion of report.
[2024-09-08 10:07] VITALS: BP 128/63; PULSE 91; RESP 18; TEMP 37.1; O2SAT 98
== END 2024-09-08 09:25 | disposition skilled nursing facility (03) ==
PROVIDERS: Emergency Provider Emergency Medicine; PCP Internal Medicine Geriatric Medicine
DX: F10.129 Alcohol abuse with intoxication, unspecified (principal); Y90.0 Blood alcohol level of less than 20 mg/100 ml; F17.210 Nicotine dependence, cigarettes, uncomplicated; Z71.41 Alcohol abuse counseling and surveillance of alcoholic; Z79.899 Other long term (current) drug therapy; Z11.52 Encounter for screening for COVID-19; Z51.81 Encounter for therapeutic drug level monitoring
CPT/HCPCS: 36415; 80048; 80076; 80307; 82140; 83690; 83735; 85007; 85027; 87635; 99285

== ENCOUNTER 2025-06-06 05:24 | Emergency (ER) | payer OTHER, SELFPAY ==
--- NOTE | ~2025-06-06 | CT_ITS ---
CLINICAL HISTORY: ? constipation ? colitis CT abdomen and pelvis without contrast Comparison: CT/REG/MO/SR - CT ABDOMEN PELVIS WITHOUT THEN WITH IV CONTRAST - 08/08/24 17:08 EST Findings: Study limited by lack of intravenous contrast. Specifically, evaluation of the vascular tree, solid abdominal organ gastrointestinal tract limited contrast administration. CT abdomen: No infiltrates within the lung bases. Degenerative change throughout the visualized thoracolumbar spine without acute compression fracture. No renal or ureteral calculi identified. No hydronephrosis or perinephric stranding. Small gallstones measuring less than 5 mm in size. No gallbladder wall thickening or pericholecystic fluid. Unenhanced liver, spleen, pancreas, and adrenal glands are unremarkable. Stomach is decompressed. Potential gastric wall thickening. No dilated small bowel. No free fluid or free air. Dense vascular calcification of the abdominal aorta, iliac arteries, and mesenteric arteries. CT pelvis: Scattered diverticuli throughout the colon. No findings of diverticulitis. Gcsi-bq-sqkgxkwz stool throughout the colon. No dilated small bowel. Fat containing ventral hernia midline midline inferior to the umbilicus Urinary bladder is moderately distended. Extensive erosive change of both hip joints as seen previously with extensive acetabular protrusio bilaterally. Extensive bony remodeling of the femoral heads and acetabula with marked thinning of the medial acetabular esparza bilaterally with areas of unchanged cortical breach of the medial acetabular wall bilaterally. There is fluid seen medial to the acetabulum bilaterally, ahyb-kihrqbo-uflu-right. This was previously more pronounced on the right. On the left, this currently measures 2.8 x 4.4 cm in size. IMPRESSION: 1. Study limited due to lack of intravenous contrast. 2. No findings of bowel obstruction or colitis. 3. Question mild gastritis. 4. Extensive abnormality of both hip joints as above. 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 Please see above for full details. Rheumatoid arthritis should be considered as a potential etiology. This document has been electronically signed by: Octavio Bustillos MD on 06/06/2025 07:26:06
[2025-06-06 05:28] VITALS: BP 143/78; PULSE 93; O2SAT 98
[2025-06-06 05:35] VITALS: BMI 37.8
[2025-06-06 05:42] VITALS: BP 136/62; PULSE 91; RESP 16; TEMP 36.9; O2SAT 99
--- OUTSIDE RECORDS SUMMARY | 2025-06-06 05:56 | XMS_ITS | Encounter Summary ---
Author Organization [employer] Address [address] [place] [address] Care Team Providers Care Toe Lining Closer Name Role Phone Name, Ryder HARTLEY Primary Care Provider [phone] Reason for Visit * Reason Comments Med Refill Encounter Details Date Type Department Care Team ([facility] Contact Info) Description 01/13/2025 Refill [facility] [address] [place], [place] [phone] Name, MD Ryder [address] [place] [address] Social History Tobacco Use Types Packs/Day Years Used Date Smoking Tobacco: Every Day Cigarettes Smokeless Tobacco: Current Alcohol Use Standard Drinks/Week Comments Yes 0 (1 standard drink = 0.6 oz pur e alcohol) social Alcohol Answer Date Recorded Frequency of Alcohol Consumption Not on file 04/07/2024 Average Number of Drinks Not on file 024 Frequency of Binge Drinking Not on file 03/27 Score 0 04/07/2024 Depression Answer Date Recorded Patient Health Questionnaire-9 Score 13 04/07/2024 Patient Health Questionnaire-9 Score 13 04/07/2024 Last PHQ-9: Questionnaire Data Not on file 0 04/07/2024 Housing Stability Answer Date Recorded What is your housing situation today? I have [place] 07/14/[address] you li ve. Do you have problems with any of the following? None of the above 07/14/2023 Food Insecurity Answer Date Recorded Within the past 12 months, y ou worried that your food would run out before you got money to buy more: Never True 07/14/2023 Within the past 12 months,th e food you bought just didn't last and you didn't have enough money to get more: Never True Transportation Answer Date Recorded In the past 12 months, has l ack of transportation kept you from medical appts, meetings, work or from getting things needed for daily living? No 10/08/2023 Utilities Answer Date Recorded In the past 12 months, has t he electric, gas, oil or water company threatened to shut off services in your home? No 07/14/2023 Depression Answer Date Recorded Patient Health Questionnaire-2 Score 4 04/07/2024 Comments Unknown Sex and Gender Information Value Date Recorded Sex Assigned at Female 07/27/2022 10:15 AM EDT Legal Sex Female 10:15 AM EDT Gender Identity Female 07/27/2022 10:15 AM EDT Sexual Orientation Straight 07/27/2022 10 :15 AM EDT documented as of this encounter Plan of Treatment Upcoming Encounters Date Type Department Care Team (Late st Contact Info) Description 07/30/2025 10:15 AM EST Office Visit [facility] [address] [place] [phone] Name, MD Ryder [address] [place] [address] documented as of this encounter Visit Diagnoses Not on filedocumented in this encounter Additional Health Concerns Assessment Noted Time PHQ-9 Depression Total Score: 13 024 11:35 AM EDT documented as of this encounter Care Teams Toe Lining Closer Relationship Specialty Start Date End Date NameRyder MD [address] [place] [id number] PCP - General Family Medicine 12/25/[address] [facility] 02/09/24 documented as of this encounter
--- OUTSIDE RECORDS SUMMARY | 2025-06-06 05:56 | XMS_ITS | Encounter Summary ---
Author Organization [employer] Address [address] [place] [address] Care Team Providers Care Energy Systems Engineer Name Role Phone Name, Ryder HARTLEY Primary Care Provider [phone] Reason for Visit * Reason Onset Date Comments Hospital Follow-up 06/04/2023 Encounter Details Date Type Department Care Team ([facility] st Contact Info) Description 06/04/2023 Telephone [facility] [address] [place], [place] [phone] Name, MD Ryder [address] [place] [address] Hospital Follow-up Social History Tobacco Use Types Packs/Day Years Used Date Smoking Tobacco: Every Day Cigarettes Smokeless Tobacco: Current Alcohol Use Standard Drinks/Week Comments Yes 0 (1 standard drink = 0.6 oz pur e alcohol) occassional Depression Answer Date Recorded Patient Health Questionnaire-2 Score 0 08/28/2022 Comments Unknown Sex and Gender Information Value Date Recorded Sex Assigned at Female 07/27/2022 10:15 AM EDT Legal Sex Female 10:15 AM EDT Gender Identity Female 07/27/2022 10:15 AM EDT Sexual Orientation Straight 07/27/2022 10 :15 AM EDT documented as of this encounter Miscellaneous Notes * Telephone Encounter - Yisel Ceron - 06/04/2023 11:28 AM EDT [facility]. Pt was seen at [facility] and admitted on 05/29 for diabetes and hyponatremia. Pt will be discharged on 06/04. Any questions, please contact inge at [phone]. For scheduling, please contact pt at [phone] documented in this encounter Plan of Treatment Upcoming Encounters Date Type Department Care Team (Late st Contact Info) Description 07/30/2025 10:15 AM EST Office Visit [facility] [address] [place] [address] Name, MD Ryder [address] [place] [address] documented as of this encounter Visit Diagnoses Not on filedocumented in this encounter Care Teams Energy Systems Engineer Relationship Specialty Start Date End Date Name, MD Ryder [address] [place] [phone] PCP - General Family Medicine 12/25/[address] [facility] 02/09/24 documented as of this encounter
--- OUTSIDE RECORDS SUMMARY | 2025-06-06 05:56 | XMS_ITS | Encounter Summary ---
Author Organization [facility] [facility] Address [address] [place] [address] Care Team Providers Care Dermatologist Name Role Phone Name, Ryder HARTLEY Primary Care Provider [phone] Encounter Details Date Type Department Care Team (Late Contact Info) Description 03/09/2023 Abstract [facility] [address] [place] [address] [phone] NameRdyer MD [address] [place] [address] [phone] Social History Tobacco Use Types Packs/Day Years Used Date Smoking Tobacco: Every Day Cigarettes Smokeless Tobacco: Current Depression Answer Date Recorded Patient Health Questionnaire-2 [...] Description 07/30/2025 10:15 AM EST Office Visit [facility] [address] [place] [address] [phone] NameRyder MD [address] [place] [address] [phone] documented as of this encounter Procedures Procedure Name Priority Date/Time Associated Diagnosis Comments COLONOSCOPY Routine 10/18/2017 12:01 PM EST documented in this encounter Results * Colonoscopy (10/18/2017 12:01 PM EST) Colonoscopy Normal Normal Narrative Haether Schneider - 10/18/2017 12:01 PM EST Recommended 10 year follow up us Historical Provider HEALTH MAINTENANCE Final Result documented in this encounter Visit Diagnoses Not on filedocumented in this encounter Care Teams Dermatologist Relationship Specialty Start Date End Date Name, MD Ryder [address] [place] [address] PCP - General Family Medicine 12/25/15 [facility] 02/09/24 documented as of this encounter
--- OUTSIDE RECORDS SUMMARY | 2025-06-06 05:56 | XMS_ITS | Encounter Summary ---
Author Organization [employer] Address [address] [place] [address] Care Team Providers Care Publication Manager Name Role Phone Name, Ryder HARTLEY Primary Care Provider [phone] Reason for Visit * Reason Comments Med Refill Encounter Details Date Type Department Care Team ([facility] Contact Info) Description 04/20/2023 Refill [facility] [address] [place] [phone] Ryder Monique MD [address] [place] [phone] Chronic obstructive pulmonary disease, unspecified (CMS/HCC) Social History Tobacco Use Types Packs/Day Years Used Date Smoking Tobacco: Every Day Cigarettes Smokeless Tobacco: Current Alcohol Use Standard Drinks/Week Comments Yes 0 (1 standard drink = 0.6 oz pur e alcohol) Depression Answer Date Recorded Patient Health Questionnaire-2 Score 0 08/28/2022 Comments Unknown Sex and Gender Information Value Date Recorded Sex Assigned at Female 07/27/2022 10:15 AM EDT Legal Sex Female 10:15 AM EDT Gender Identity Female 07/27/2022 10:15 AM EDT Sexual Orientation Straight 07/27/2022 10 :15 AM EDT COVID-19 Exposure Response Date Recorded In the last 10 days, have yo u been in contact with someone who was confirmed or suspected to have Coronavirus/COVID-19? No / Unsure 03/25/2023 9:38 AM EDT documented as of this encounter Plan of Treatment Upcoming Encounters Date Type Department Care Team ([facility] Contact Info) Description 07/30/2025 10:15 AM EST Office Visit [facility] [address] [place] [address] [phone] NameRyder MD [address] [place] [address] documented as of this encounter Visit Diagnoses Diagnosis Chronic obstructive pulmonary disease, unspecified (CMS/HCC) documented in this encounter Care Teams Publication Manager Relationship Specialty Start Date End Date Name, MD Ryder [address] [place] [address] PCP - General Family Medicine 12/25/15 [facility] 02/09/24 documented as of this encounter
--- OUTSIDE RECORDS SUMMARY | 2025-06-06 05:56 | XMS_ITS ---
Author Organization [employer] Care Team Providers Care Oncology Pharmacist Name Role Phone Mikel Dozier Unavailable Unavailable Allergies and adverse reactions Code CodeSystem Substance Reaction Severity StartDate Concern Status 27553 RXNORM Paxil Moderate 01/21/2024 active 441389 RXNORM Advair Diskus Moderate 01/21/2024 active Care Team Name Role Address Phone Organization Dates Mikel Dozier PCP [address], [place], [address], [facility] (Office): [employer] [facility] 01/20/2024 - 02/09/2024 Mental Status Section Date Assessment Total Score Description 02/08/2024 BIMS 11 moderate cognit phuc impairment CAM 0 No delirium ind icated PHQ-9 01 minimal depress ion 01/25/2024 BIMS 09 moderate cognit phuc impairment CAM 0 No delirium ind icated PHQ-9 07 mild depression Problems Problem # Description Date of onset Resolved Date Code CodeSystem Concern Status 1 ALCOHOL DEPENDENCE WITH ALCOHOL-INDUCED PERSISTING AMNESTIC DISORDER 01/20/[address] active 2 ATHEROSCLEROTIC HEART DISEASE OF [place] CORONARY ARTERY WITHOUT ANGINA PECTORIS 01/20/[address] active 3 CANNABIS DEPENDENCE, UNCOMPLICATED 01/20/[address] active 4 ESSENTIAL (PRIMARY) HYPERTENSION 01/20/[address] active 5 GASTRO-ESOPHAGEAL REFLUX DISEASE WITHOUT ESOPHAGITIS 01/20/[address] active 6 IDIOPATHIC ASEPTIC NECROSIS OF BONE, OTHER SITE 01/20/[address] active 7 OBSTRUCTIVE SLEEP APNEA (ADULT) (PEDIATRIC) 01/20/[address] active 8 OPIOID ABUSE, UNCOMPLICATED 01/20/[address] active 9 OTHER ABNORMALITIES OF GAIT AND MOBILITY 01/20/[address] active 10 OTHER BIPOLAR DISORDER 01/20/[address] active 11 OTHER SPECIFIED CHRONIC OBSTRUCTIVE PULMONARY DISEASE 01/20/[address] active 12 SCHIZOAFFECTIVE DISORDER, DEPRESSIVE TYPE 01/20/[address] active 13 SECONDARY OSTEOARTHRITIS, OTHER SPECIFIED SITE 01/20/[address] active 14 TOBACCO USE 01/20/20 Z72.0 ICD-10-CM active 15 TYPE 2 DIABETES MELLITUS WITHOUT COMPLICATIONS 01/20/[address] active 16 WEAKNESS 01/20/[address] active 17 WERNICKE'S ENCEPHALOPATHY 01/20/[address] active Reason for Referral No Reasons for Referral Entered Social History Social History Observation Description Start Date End Date Code Code System Current Smoking Status Tobacco smoking consumption unknown 855384862 SNOMED CT Sex Assigned At Female 1955 31397-5 [facility] Gender Identity Sexual Orientation Vital Signs Code Code System Vitals Name Values and Units Timing Information 9279-1 [facility] Respiratory Rate Value=20.0 Units=/m in 02/06/2024 8462-4 [facility]INC Blood Pressure-Diastolic Value=83 Un its=mmHg 02/06/2024 8480-6 LOINC Blood Pressure-Systolic [place]=080 Un its=mmHg 02/06/2024 8310-5 [facility] Body Temperature Value=97.6 Units= F 02/06/2024 8867-4 LOINC Heart rate Hwgot=606.0 Units=/min 02/06/2024 50303-4 [facility] O2 % BldC Oximetry Value=95.0 Units= % 02/06/2024 88804-4 [facility] Pain Level Value=0.0 02/06/2024 62997-1 [facility] Weight Bvmxs=249.0 Units=Lbs 05/2024
--- OUTSIDE RECORDS SUMMARY | 2025-06-06 05:56 | XMS_ITS | Encounter Summary ---
Author Organization [employer] Address [address] 7[address] [place] [address] Care Team Providers Care Lumber Sorter Machine Name Role Phone Name, Ryder HARTLEY Primary Care Provider [phone] Encounter Details Date Type Department Care Team (Late st Contact Info) Description 10/08/[address] [facility] [address] [place], [place] [phone] Name, MD Ryder [address] [place] [address] Social History Tobacco Use Types Packs/Day Years Used Date Smoking Tobacco: Every Day Cigarettes Smokeless Tobacco: Current Alcohol Use Standard Drinks/Week Comments Yes 0 (1 standard drink = 0.6 oz pur e alcohol) occassional Housing Stability Answer Date Recorded What is [...] Description 07/30/2025 10:15 AM EST Office Visit [facility] [address] [place] [address] Name, MD Ryder [address] [place] [address] documented as of this encounter Visit Diagnoses Not on filedocumented in this encounter Care Teams Lumber Sorter Machine Relationship Specialty Start Date End Date Name, MD Ryder [address] [place] [address] PCP - General Family Medicine 12/25/15 [facility] 02/09/24 documented as of this encounter
--- OUTSIDE RECORDS SUMMARY | 2025-06-06 05:56 | XMS_ITS ---
Author Organization [facility] Care Team Providers Care Provider Network Manager Name Role Phone Roel Swann Unavailable Unavailable Maribell Marion Unavailable Unavailable Allergies and adverse reactions Code CodeSystem Substance Reaction Severity StartDate Concern Status Paxil Unknown 11/08/2020 active Advair Diskus Unknown 11/08/2020 active Care Team Name Role Address Phone Organization Dates Roel Swann PCP [address], [place], [address], [place] (Office): : [facility] 07/09/2021 - 07/10/2021 Maribell Marion [address], [place], [address], [place] (Office): [facility] 07/09/2021 - 07/10/2021 Immunizations Immunization Status Vaccine Details Vaccine Code CodeSystem Date Notes Influenza completed Influenza, split virus, trivalent, injectable, contains preservative 141 CVX created date: 11/08/2020 administer ed date: 11/04/2020 TB 2 Step Mantoux Skin Test completed tuberculin skin test; unspecified formulation lotNumber: [id number] expiry: 10/28/2021 Mfg: PAR pharmaceical Given 0.1 ml Left Forearm intradermally Step 2 of Multi-step with next step required 98 CVX created date: 11/17/2020 consent date: 11/17/2020 administer ed date: 11/17/2020 TB 2 Step Mantoux Skin Test completed tuberculin skin test; unspecified formulation lotNumber: [id number] expiry: 11/24/2021 Mfg: par Given 0.1 ml Left Forearm intradermally Step 1 of Multi-step with next step required 98 CVX created date: 11/10/2020 consent date: 11/14/2020 administer ed date: 11/09/2020 Prevnar 13 completed pneumococcal conjugate vaccine, 13 valent 133 CVX created date: 11/08/2020 administer ed date: 11/04/2020 SARS-COV-2 (COVID-19) completed SARS-COV-2 (COVID-19) vaccine, mRNA, spike protein, LNP, preservative free, 100 mcg/0.5mL dose or 50 mcg/0.25mL dose Step 1 of Multi-step 207 CVX created date: 02/15/2021 administer ed date: 02/03/2021 Received first dose of Moderna vaccination 02/03/21. Due for 2nd shot 03/06/21. Mental Status Section Date Assessment Total Score Description 07/10/2021 BIMS 11 moderate cognit phuc impairment CAM 0 No delirium ind icated PHQ-9 02 minimal depress ion 02/26/2021 BIMS 12 moderate cognit phuc impairment CAM 0 No delirium ind icated PHQ-9 00 Problems Problem # Description Date of onset Resolved Date Code CodeSystem Concern Status 1 HYPO-OSMOLALITY AND HYPONATREMIA 07/08/[address] active 2 MUSCLE WASTING AND ATROPHY, NOT ELSEWHERE CLASSIFIED, RIGHT LOWER LEG 07/08/[address] active 3 UNSPECIFIED DEMENTIA, UNSPECIFIED SEVERITY, WITHOUT BEHAVIORAL DISTURBANCE, PSYCHOTIC DISTURBANCE, MOOD DISTURBANCE, AND ANXIETY 07/08/[address] active 4 ANXIETY DISORDER, UNSPECIFIED 02/18/[address] active 5 ATHEROSCLEROTIC HEART DISEASE OF [place] CORONARY ARTERY WITHOUT ANGINA PECTORIS 02/18/[address] active 6 HEART FAILURE, UNSPECIFIED 02/18/[address] active 7 SECONDARY OSTEOARTHRITIS, UNSPECIFIED SITE 02/18/[address] active 8 SLEEP APNEA, UNSPECIFIED 02/18/[address] active 9 WEAKNESS 02/16/2007/08/[address] completed 10 DIFFICULTY IN WALKING, NOT ELSEWHERE CLASSIFIED 02/15/20 21 07/08/[address] completed 11 DYSPHAGIA, ORAL PHASE 02/15/2007/08/[address] completed 12 MUSCLE WASTING AND ATROPHY, NOT ELSEWHERE CLASSIFIED, LEFT LOWER LEG 02/15/2007/08/[address] completed 13 MUSCLE WASTING AND ATROPHY, NOT ELSEWHERE CLASSIFIED, RIGHT SHOULDER 02/15/2007/08/[address] completed 14 OTHER MALAISE 02/15/2007/08/[address] completed 15 OTHER REDUCED MOBILITY 02/15/2007/08/[address] completed 16 ALCOHOL ABUSE, UNCOMPLICATED 11/08/1907/08/[address] completed 17 ALCOHOL DEPENDENCE WITH WITHDRAWAL, UNSPECIFIED 11/08/19 21 07/08/[address] completed 18 BIPOLAR DISORDER, UNSPECIFIED 11/08/[address] active 19 CHRONIC KIDNEY DISEASE, UNSPECIFIED 11/08/[address] active 20 CHRONIC OBSTRUCTIVE PULMONARY DISEASE, UNSPECIFIED 11/08/[address] active 21 CONTACT WITH AND (SUSPECTED) EXPOSURE TO COVID-19 11/08/19 21 07/08/[address] completed 22 DIFFICULTY IN WALKING, NOT ELSEWHERE CLASSIFIED 11/08/19 21 02/19/[address] completed 23 DYSPHAGIA, OROPHARYNGEAL PHASE 11/08/19 21 02/19/[address] completed 24 ESSENTIAL (PRIMARY) HYPERTENSION 11/08/[address] active 25 HYPERLIPIDEMIA, UNSPECIFIED 11/08/[address] active 26 HYPO-OSMOLALITY AND HYPONATREMIA 11/08/19 21 07/08/[address] completed 27 MAJOR DEPRESSIVE DISORDER, RECURRENT, UNSPECIFIED 11/08/[address] active 28 MUSCLE WASTING AND ATROPHY, NOT ELSEWHERE CLASSIFIED, LEFT LOWER LEG 11/08/19 21 02/19/[address] completed 29 MUSCLE WASTING AND ATROPHY, NOT ELSEWHERE CLASSIFIED, RIGHT SHOULDER 11/08/19 21 02/19/[address] completed 30 OBESITY, UNSPECIFIED 11/08/[address] active 31 OTHER ASTHMA 11/08/19 21 07/08/[address] completed 32 OTHER MALAISE 11/08/19 21 02/19/[address] completed 33 OTHER REDUCED MOBILITY 11/08/19 21 02/19/[address] completed 34 OTHER SPECIFIED ANXIETY DISORDERS 11/08/[address] active 35 TYPE 2 DIABETES MELLITUS WITHOUT COMPLICATIONS 11/08/[address] active Reason for Referral No Reasons for Referral Entered Social History Social History Observation Description Start Date End Date Code Code System Current Smoking Status Tobacco smoking consumption unknown 018710391 SNOMED CT Sex Assigned At Female 1955 28419-4 [facility] Gender Identity Sexual Orientation Vital Signs Code Code System Vitals Name Values and Units Timing Information 9279-1 [facility] Respiratory Rate Value=16.0 Units=/m in 07/10/2021 8462-4 [facility] Blood Pressure-Diastolic Value=81 Un its=mmHg 07/10/2021 8480-6 [facility] Blood Pressure-Systolic Dayxu=424 Un its=mmHg 07/10/2021 8310-5 [facility] Body Temperature Value=97.5 Units= F 07/10/2021 8867-4 [facility] Heart rate Value=85.0 Units=/min 21864-9 [facility] O2 % BldC Oximetry Value=94.0 Units= % 07/10/2021 55680-2 [facility] Pain Level Value=4.0 07/10/2021 2339-0 [facility] Blood Sugar Value=96.0 Units=mg/dL 07/10/2021 74460-3 [facility] Weight Dmifl=911.8 Units=Lbs 8302-2 [facility] Height Value=63.0 Units=Inches 11/08/2020
--- OUTSIDE RECORDS SUMMARY | 2025-06-06 05:56 | XMS_ITS | Encounter Summary ---
Author Organization [employer] Address [address] [place] [address] Care Team Providers Care Livestock Speculator Name Role Phone Name, Ryder HARTLEY Primary Care Provider [phone] Encounter Details Date Type Department Care Team (Late st Contact Info) Description 05/25/2023 Telephone [facility] [address] [place] [address] Vivien Gay RN [address] [place] [address] Social History Tobacco Use Types Packs/Day Years [...] encounter Miscellaneous Notes * Telephone Encounter - Alondra Staton RN - 05/25/2023 2:55 PM EDT Placed call to pt Juanjo and informed of lab results and urgency of need to go to ED. Juanjo states pt is going to refuse to go, advised of urgency of need to go to ED. stateshe will try to get pt to go to [facility] mei but if he is unable, to return call to office to call for ambulance transport. * Telephone Encounter - Ryder Monique MD - 05/25/2023 2:46 PM EDT Please call the patient, she has severe hyponatremia at 116. I recommend she goes to [facility] ER now fortreatment, she will need IV saline solution * Telephone Encounter - Vivien Gay RN - 05/25/2023 2:39 PM EDT Received call from [facility] Chemistry lab regarding a critical lab result. Spoke to Anne, who reports a critical sodium level of 116. Read back and verified. Attempted to call one of the blue team nurses without success. Will task to team nurses to follow up and send result to her PCP. documented in this encounter Plan of Treatment Upcoming Encounters Date Type Department Care Team (Late st Contact Info) Description 07/30/2025 10:15 AM EST Office Visit [facility] [address] [place] [address] Name, MD Ryder [address] [place] [address] documented as of this encounter Visit Diagnoses Not on filedocumented in this encounter Care Teams Livestock Speculator Relationship Specialty Start Date End Date NameRyder MD [address] [place] [address] PCP - General Family Medicine 12/25/15 [facility] 02/09/24 documented as of this encounter
--- OUTSIDE RECORDS SUMMARY | 2025-06-06 05:56 | XMS_ITS | Encounter Summary ---
Author Organization [employer] Address [address] [facility] 7t [place] [address] Care Team Providers Care Lifestyle Block Farmer Name Role Phone Name, Ryder HARTLEY Primary Care Provider [phone] Reason for Visit * Reason Comments Med Refill Encounter Details Date Type Department Care Team ([facility] Contact Info) Description 04/16/2023 Refill [facility] [address] [place], [place] [phone] Name, MD Ryder 230 [place] [address] COPD exacerbation ([facility]) Social History Tobacco Use Types Packs/Day Years [...] encounter Miscellaneous Notes * Telephone Encounter - Tabatha Dennis - 04/16/2023 8:39 AM EDT Tc from patient requesting a med refill for medication albuterol 108 (90 Base) MCG/ACT inhaler and ipratropium-albuterol 0.5-2.5 mg/3L nebulizer solution. documented in this encounter Plan of Treatment Upcoming Encounters Date Type Department Care Team (Late st Contact Info) Description 07/30/2025 10:15 AM EST Office Visit [facility] [address] [place] [address] Name, MD Ryder [address] [place] [address] documented as of this encounter Visit Diagnoses Diagnosis COPD exacerbation ([facility]) Obstructive chronic bronchitis with exacerbation documented in this encounter Care Teams Lifestyle Block Farmer Relationship Specialty Start Date End Date NameRyder MD [address] [place] [address] PCP - General Family Medicine 12/25/[address] [facility] 02/09/24 documented as of this encounter
--- OUTSIDE RECORDS SUMMARY | 2025-06-06 05:56 | XMS_ITS | Encounter Summary ---
Author Organization [employer] Address [address] [place] [address] Care Team Providers Care Bacon De Rinder Name Role Phone Name, Ryder HARTLEY Primary Care Provider Encounter Details Date Type Department Care Team (Late st Contact Info) Description 08/27/2022 Abstract [facility] [address] [place] [address] Name, MD Ryder 230 [place] [address] Social History Tobacco Use Types Packs/Day Years Used Date Smoking Tobacco: Never Assessed Depression Answer Date Recorded Patient Health Questionnaire-2 [...] suspected to have Coronavirus/COVID-19? No / Unsure 08/28/2022 9:38 AM EST documented as of this encounter Functional Status * Over the past 2 weeks, how often have you been bothered by any of the following problems? Question Answer Date of Assessment Author Little interest or pleasure in doing things Not at all 08/28/2022 10:00 AM [place] Feeling down, depressed, or hopeless Not at all 08/28/2022 10:00 AM [place] Patient Health Questionnaire -2 Score 0 08/28/2022 10:00 AM EST [place] documented as of this encounter Plan of Treatment Upcoming Encounters Date Type Department Care Team (Late st Contact Info) Description 07/30/2025 10:15 AM EST Office Visit [facility] [address] [facility] [place] [address] Name, MD Ryder [address] [facility] [place] [address] documented as of this encounter Visit Diagnoses Not on filedocumented in this encounter Care Teams Bacon De Rinder Relationship Specialty Start Date End Date Name, MD Ryder [facility] [place] [address] PCP - General Family Medicine 12/25/15 [facility] 02/09/24 documented as of this encounter
--- OUTSIDE RECORDS SUMMARY | 2025-06-06 05:56 | XMS_ITS | Clinical Summary ---
Author Organization [facility] Address [address] [place] [address] Phone Care Team Providers Care Title Clerk Automobile Name Role Phone Unavailable Primary Care Provider Unavailabl e Allergies Active Allergy Reactions Criticality Noted Date Comments Fluticasone-Salmeterol Other (see comments) 04/2020 Paroxetine Other (see comments) 05/08/2021 Paroxetine Hcl 09/03/2020 Medications albuterol HFA (Ventolin HFA) 108 (90 Base) MCG/ACT inhaler Inhale 1 puff 2 (two) times a day Active citalopram (CeleXA) 40 MG tablet Take 1 tablet by mouth 1 (one) time each day Active aspirin (Vicki Aspirin EC Low Dose) 81 MG EC tablet Take 1 tablet by mouth 1 (one) time each day Active montelukast (SINGULAIR) 10 MG tablet Take 1 tablet by mouth 1 (one) time each day Active fluticasone HFA (Flovent HFA) 44 MCG/ACT inhaler Active clonazePAM (KlonoPIN) 1 MG tablet Take 1 tablet by mouth 3 (three) times a day Active pravastatin (PRAVACHOL) 40 MG tablet Take 1 tablet by mouth 1 (one) time each day Active QUEtiapine (SEROquel) 100 MG tablet Take 1 tablet by mouth 1 (one) time each day Active Thiamine HCl (vitamin B-1) 50 MG tablet Take 50 mg by mouth 1 (one) time each day Active folic acid (FOLVITE) 1 MG tablet Take 1 mg by mouth 1 (one) time each day Active senna (SENOKOT) 8.6 MG tablet Take 1 tablet by mouth 1 (one) time each day Active baclofen (LIORESAL) 20 MG tablet Take 20 mg by mouth if needed Active furosemide (LASIX) 20 MG tablet Take 20 mg by mouth 1 (one) time each day Active metFORMIN (GLUCOPHAGE) 500 MG tablet Take 500 mg by mouth 1 (one) time each day Active gabapentin (NEURONTIN) 100 MG capsule Take 1 capsule by mouth Active lisinopril-hydr oCHLOROthiazide (PRINZIDE,ZESTO RETIC) 20-25 MG per tablet Take 1 tablet by mouth 1 (one) time each day Active pantoprazole (PROTONIX) 40 MG EC tablet Take 1 tablet by mouth 1 (one) time each day Active Active Problems Problem Noted Date Diagnosed Date Chronic obstructive pulmonary disease 11/28/2020 Acute nontraumatic kidney injury 11/28/2020 Anxiety state 11/28/2020 Benign essential hypertension 11/28/2020 Coronary arteriosclerosis 11/28/2020 Obstructive sleep apnea syndrome 11/28/2020 Osteoarthritis 11/28/2020 Family History Relation Status Comments Father Unknown Mother Unknown Social History Tobacco Use Types Packs/Day Years Used Date Smoking Tobacco: Never Assessed Alcohol Use Standard Drinks/Week Comments Yes 0 (1 standard drink = 0.6 oz pur e alcohol) Comments Unknown Sex and Gender Information Value Date Recorded Sex Assigned at Not on file Legal Sex Female 5:02 PM EST Gender Identity Not on file Sexual Orientation Not on file Plan of Treatment Health Maintenance Due Date Last Done Comments Breast Cancer Screening 1955 Colorectal Cancer Screening: Annual FOBT 2002 Colorectal Cancer Screening: Colonoscopy 2002 Colorectal Cancer Screening: Sigmoidoscopy 2002 Diabetes: Ophthalmology Exam 03/25/2023 Diabetes: Pedal Pulse Checked 03/25/2023 Diabetes: Sensory Foot Exam 03/25/2023 Diabetes: Visual Foot Exam 03/25/2023 Diabetes: Hemoglobin A1C 07/08/2024 04/07/2024 Influenza Vaccine (#1) 2025 3, 11/05/2020, 11/04/2020, Additional history exists Pneumococcal Vaccine: 50+ Years Completed 11/04/2020, 09/23/2018, 07/12/2017 Pneumococcal Vaccine: Peds (0 to 5 Years) and At-Risk Patients (6 to 49 Years) Discontinued 11/04/2020, 09/23/2018, 07/12/2017 Hepatitis B Vaccine Aged Out No longe r eligible based on patient's age to complete this topic Insurance ([id number]) [place] [address] ([id number]) ALICIA MONTOYA [address]
--- OUTSIDE RECORDS SUMMARY | 2025-06-06 05:56 | XMS_ITS | Encounter Summary ---
Author Organization [employer] Address [address] [place] [address] Care Team Providers Care Biophysics Teacher Name Role Phone Name, Ryder HARTLEY Primary Care Provider [phone] Reason for Visit * Reason Onset Date Comments FYI 08/24/2023 Encounter Details Date Type Department Care Team ([facility] Contact Info) Description 08/24/2023 Telephone [facility] [address] [place] [address] Name, MD Ryder 230 [place] [address] FYI Social History Tobacco Use Types Packs/Day Years Used Date Smoking Tobacco: Every Day Cigarettes Smokeless Tobacco: Current Alcohol Use Standard Drinks/Week Comments Yes 0 (1 standard drink = 0.6 oz pur e alcohol) occassional Housing Stability Answer Date Recorded What is your housing situation today? I have [place] 07/14/[address] you [...] from getting things needed for daily living? Yes, it has kept me from medical appointments or getting medications. 07/05/2023 Utilities Answer Date Recorded In the past 12 months, has t he [email or web address], [employer], oil or water company threatened to shut [...] encounter Miscellaneous Notes * Telephone Encounter - Maine Thurman RN - 08/24/2023 3:08 PM EST Noted. [facility] progress note printed, [facility] * Telephone Encounter - Yisel Ceron - 08/24/2023 9:12 AM EST Tc from samantha calling to advise PCP pt is currently admitted at [facility] and will not be discharged dueto her conditions. Any questions/clarification, please contact samantha at [phone] ([employer]amazight) documented in this encounter Plan of Treatment Upcoming Encounters Date Type Department Care Team (Late st Contact Info) Description 07/30/2025 10:15 AM EST Office Visit [facility] [address] [place] [address] Name, MD Ryder [address] [place] [address] documented as of this encounter Visit Diagnoses Not on filedocumented in this encounter Care Teams Biophysics Teacher Relationship Specialty Start Date End Date Name, MD Ryder [address] [place] [address] PCP - General Family Medicine 12/25/15 [facility] 02/09/24 documented as of this encounter
--- OUTSIDE RECORDS SUMMARY | 2025-06-06 05:56 | XMS_ITS | Encounter Summary ---
Author Organization [employer] Address [address] [facility] 7t [place] [address] Care Team Providers Care Electromechanical Assembly Technician Name Role Phone Name, Ryder HARTLEY Primary Care Provider Reason for Visit * Reason Onset Date Comments Appointment Request 12/29/2022 Encounter Details Date Type Department Care Team (Late Contact Info) Description 12/29/2022 Telephone [facility] 230 [place] [address] Name, MD Ryder [address] [place] [address] Appointment Request Social History Tobacco Use Types Packs/Day Years [...] encounter Miscellaneous Notes * Telephone Encounter - Yosi Yun - 12/29/2022 9:35 AM EDT Tc from [facility] requesting an appt for pt, pt [facility]. Please contact [facility] at [phone] documented in this encounter Plan of Treatment Upcoming Encounters Date Type Department Care Team (Late Contact Info) Description 07/30/2025 10:15 AM EST [facility] [address] [facility] [address] Name, MD Ryder [facility] [address] documented as of this encounter Visit Diagnoses Not on filedocumented in this encounter Care Teams Electromechanical Assembly Technician Relationship Specialty Start Date End Date Name, MD Ryder [facility] [place] [address] PCP - General Family Medicine 12/25/[address] [facility] 02/09/24 documented as of this encounter
--- OUTSIDE RECORDS SUMMARY | 2025-06-06 05:56 | XMS_ITS | Encounter Summary ---
Author Organization [employer] Address [address] [place] [address] Care Team Providers Care Willow Machine Tender Name Role Phone Name, Ryder HARTLEY Primary Care Provider [phone] Reason for Visit * Reason Comments Med Refill Encounter Details Date Type Department Care Team ([facility] Contact Info) Description 07/18/[address] [facility] 230 [place] [address] Alison Rodriguez MD 230 [place], [place] [phone] Social History Tobacco Use Types Packs/Day Years [...] Visit [facility] MED[facility] [address] [place] [address] Name, MD Ryder [address] [place] [address] documented as of this encounter Visit Diagnoses Not on filedocumented in this encounter Care Teams Willow Machine Tender Relationship Specialty Start Date End Date Name, MD Ryder [address] [place] [address] PCP - General Family Medicine 12/25/15 [facility] 02/09/24 documented as of this encounter
--- OUTSIDE RECORDS SUMMARY | 2025-06-06 05:56 | XMS_ITS | Encounter Summary ---
Author Organization [employer] Address [address] [place] [address] Care Team Providers Care Fruit Or Nut Farmer Name Role Phone Name, Ryder HARTLEY Primary Care Provider [phone] Encounter Details Date Type Department Care Team ([facility] st Contact Info) Description 12/06/2024 Telephone [facility] [address] [place], [place] [phone] Name, MD Ryder [address] [place] [address] Social History Tobacco Use Types Packs/Day Years [...] encounter Miscellaneous Notes * Telephone Encounter - Mandy Sherman - 12/06/2024 10:37 AM EDT Tc joseluis Vera from [facility] calling to report pt was discharge from [facility] against medical advice. Pt was taken by daughter or spouse. [facility] [employer] protection and [employer] police has been notified. Please call phone # [phone] ext [phone] for additional information documented in this encounter Plan of Treatment Upcoming Encounters Date Type Department Care Team (Late st Contact Info) Description 07/30/2025 10:15 AM EST Office Visit [facility] [address] [place] [address] Name, MD Ryder [address] [place] [address] documented as of this encounter Visit Diagnoses Not on filedocumented in this encounter Additional Health Concerns Assessment Noted Time PHQ-9 Depression Total Score: 13 024 11:35 AM EDT documented as of this encounter Care Teams Fruit Or Nut Farmer Relationship Specialty Start Date End Date NameRyder MD [address] [place] [id number] PCP - General Family Medicine 12/25/[address] [facility] 02/09/24 documented as of this encounter
--- OUTSIDE RECORDS SUMMARY | 2025-06-06 05:56 | XMS_ITS | Encounter Summary ---
Author Organization [employer] Address [address] [place] [address] Care Team Providers Care Draw Bench Operator Helper Name Role Phone Name, Ryder HARTLEY Primary Care Provider [phone] Reason for Visit * Reason Onset Date Comments Reschedule 10/08/2023 Encounter Details Date Type Department Care Team ([facility] Contact Info) Description 10/08/2023 Telephone [facility] MEDICINE [address] [place] [address] Name, MD Ryder [address] [place] [address] Reschedule Social History Tobacco Use Types Packs/Day Years [...] * Telephone Encounter - Yisel Ceron - 10/08/2023 11:45 AM EST Tc from samantha requesting to r/s 10/04 [facility] appointment. Please contact samantha at [phone] (Angolan) documented in this encounter Plan of Treatment Upcoming Encounters Date Type Department Care Team (Late st Contact Info) Description 07/30/2025 10:15 AM EST Office Visit [facility] MEDICINE [address] [place] [address] Name, MD Ryder [address] [place] [address] documented as of this encounter Visit Diagnoses Not on filedocumented in this encounter Care Teams Draw Bench Operator Helper Relationship Specialty Start Date End Date NameRyder MD [address] [place] [address] PCP - General Family Medicine 12/25/15 [facility] 02/09/24 documented as of this encounter
--- OUTSIDE RECORDS SUMMARY | 2025-06-06 05:56 | XMS_ITS | Encounter Summary ---
Author Organization [employer] Address [address] [place] [address] Care Team Providers Care Tube Blower Name Role Phone Name, Ryder HARTLEY Primary Care Provider [phone] Reason for Visit * Reason Onset Date Comments Med Refill 11/24/2023 Encounter Details Date Type Department Care Team ([facility] st Contact Info) Description 11/24/2023 Refill [facility] MED[facility]INE [address] [place], [place] [phone] Name, MD Ryder [address] [place] [address] Social History Tobacco Use Types Packs/Day Years [...] Answer Date Recorded Patient Health Questionnaire-2 Score 6 10/20/2023 Comments Unknown Sex and Gender Information Value Date Recorded Sex Assigned at Female 07/27/2022 10:15 AM EDT Legal Sex Female 10:15 AM EDT Gender Identity Female 07/27/2022 10:15 AM EDT Sexual Orientation Straight 07/27/2022 10 :15 AM EDT documented as of this encounter Miscellaneous Notes * Telephone Encounter - Ryder Monique MD - 11/24/2023 3:33 PM EST She needs appointment * Telephone Encounter - Yisel Ceron - 11/24/2023 3:19 PM EST TC from pt requesting medication refill. Medications needing refill : traZODone (Desyrel) 50 MG tablet To be sent to: [facility] - [place], [place] - [address] [place] [address] documented in this encounter Plan of Treatment Upcoming Encounters Date Type Department Care Team (Late st Contact Info) Description 07/30/2025 10:15 AM EST Office Visit [facility]INE [address] [place] [address] NameRyder MD [address] [place] [address] documented as of this encounter Visit Diagnoses Not on filedocumented in this encounter Care Teams Tube Blower Relationship Specialty Start Date End Date Ryder Monique MD [address] [place] [address] PCP - General Family Medicine 12/25/[address] [facility] 02/09/24 documented as of this encounter
--- OUTSIDE RECORDS SUMMARY | 2025-06-06 05:56 | XMS_ITS | Clinical Summary ---
Author Organization [employer] Address [address] [place] [address] Care Team Providers Care Cotton Feeder Name Role Phone Name, Ryder HARTLEY Primary Care Provider [phone] Allergies Active Allergy Reactions Criticality Noted Date Comments Fluticasone 01/18/2024 Other Reaction(s): Unknown Paroxetine Nausea And Vomiting High 09/25/2010 Other reaction(s): unspecified Other reaction(s): Not available Salmeterol 01/18/2024 Other Reaction(s): Unknown Medications * This document contains information received from the source organization and may not represent a complete record from that organization. thiamine (Vitamin B-1) 100 MG tablet TAKE 1 TABLET BY MOUTH EVERY DAY 90 tablet 1 01/28/20 23 Active famotidine (Pepcid) 20 MG tablet Take 1 tablet (20 mg) by mouth 2 times daily. 60 tablet 11 05/25/20 23 Active folic acid (Folvite) 1 MG tablet TAKE 1 TABLET BY MOUTH EVERY DAY 90 tablet 1 07/19/20 23 Active meloxicam (Mobic) 15 MG tabletIndications :Primary osteoarthritis of both knees TAKE 1 TABLET BY MOUTH ONCE DAILY IN THE MORNING 20 tablet 01/11/20 24 Active ferrous sulfate 325 (65 Fe) MG EC tablet Take 1 tablet (325 mg) by mouth with breakfast. Do not crush, chew, or split. 30 tablet 11 07/17/20 24 025 Active traZODone (Desyrel) 50 MG tabletIndications :Depressive disorder TAKE 1 TABLET BY MOUTH EVERY DAY AT BEDTIME NEEDED FOR SLEEP 30 tablet 5 08/28/20 24 Active albuterol (2.5 MG/3ML) 0.083% nebulizer solution INHALE 1 AMPULE USING A NEBULIZER EVERY 4 TO 6 HOURS NEEDED 90 mL 11 12/09/19 25 Active ondansetron (Zofran) 4 MG tablet Take 1 tablet by mouth every 12 (twelve) hours if needed. 10/27/19 25 Active SPS, Sodium Polystyrene Sulf, 15 GM/60ML suspension Use as directed 10/16/19 25 Active levothyroxine (Synthroid, Levoxyl) 50 MCG tablet Take 1 tablet by mouth before breakfast. Active acetaminophen (Tylenol 8 Hour) 650 MG ER tabletIndications :Chronic pain of both shoulders TAKE 1 TABLET BY MOUTH EVERY 8 HOURS NEEDED FOR MODERATE PAIN, DO NOT BREAK, CRUSH, DISSOLVE OR CHEW 90 tablet 2 01/27/20 25 Active baclofen (Lioresal) 20 MG tablet TAKE 1 TABLET BY MOUTH ONCE DAILY NEEDED FOR BACK PAIN 30 tablet 5 01/27/20 25 Active Fluticasone-Salme terol 250-50 MCG/ACT aerosol powder INHALE 1 PUFF BY MOUTH TWICE DAILY 60 each 3 03/01/20 25 Active Ventolin HFA 108 (90 Base) MCG/ACT inhaler INHALE 2 PUFFS BY MOUTH EVERY 4 HOURS NEEDED FOR WHEEZING OR SHORTNESS OF BREATH 18 g 3 03/01/20 25 Active Aspirin Low Dose 81 MG EC tablet TAKE 1 TABLET BY MOUTH EVERY DAY 90 tablet 1 03/27/20 25 Active metoprolol succinate XL (Toprol-XL) 25 MG 24 hr tablet TAKE 1 TABLET BY MOUTH EVERY MORNING. DO NOT BREAK, CRUSH, DISSOLVE OR CHEW 90 tablet 1 03/27/20 25 Active montelukast (Singulair) 10 MG tablet TAKE 1 TABLET BY MOUTH EVERY EVENING 90 tablet 1 03/27/20 25 Active Multiple Vitamin (Multivitamin) tablet TAKE 1 TABLET BY MOUTH EVERY DAY WITH FOOD 90 tablet 1 03/27/20 25 Active omeprazole (PriLOSEC) [address] capsule TAKE 1 CAPSULE BY MOUTH EVERY DAY ON AN EMPTY STOMACH. DO NOT BREAK, CRUSH, DISSOLVE OR CHEW 90 capsule 1 03/27/20 25 Active pravastatin (Pravachol) 20 MG tablet TAKE 1 TABLET BY MOUTH AT BEDTIME 90 tablet 1 03/27/20 25 Active acamprosate (Campral) 333 MG EC tablet TAKE 2 TABLETS BY MOUTH THREE TIMES DAILY. DO NOT BREAK, CRUSH, DISSOLVE OR CHEW. 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 will bring urine cup to lab along with lab order. Will fu results. SAGAR (acute kidney injury) 09/02/2023 Acute metabolic encephalopathy 09/02/2023 Gastroenteropathy 07/08/2023 History of back pain 07/08/2023 Chronic hyponatremia 07/08/2023 Hyponatremia 07/08/2023 Substance abuse 07/08/2023 Schizophrenia 07/08/2023 Dementia 07/08/2023 Chronic pain of both shoulders 07/01/2023 Overview (07/01/2023): Also reports bilateral shoulder, elbow, wrist and glutes pain. Onset Sep 2022 OA present in other joints Assessment & Plan (07/01/2023 1:06 PM EDT): Continue walker and wheelchair use Order xray to rule out septic arthritis Not a candidate for gabapentin d/t ETOH use Continue Tylenol 650 mg 1 tab every 8 hours PRN Already referred to pain medicine in the past but does not keep appt F/u with PCP PRN Hyperkalemia 03/25/2023 Assessment & Plan (10/20/2023 3:14 PM EST): Labs done today were reviewed. She has mild, will give small dose of Sodium polysterene Alcohol use disorder, severe, dependence 023 Assessment & Plan (10/20/2023 3:05 PM EST): Drinking 1 beer/day, takes campral with no side effects. Counseled to quit ETOH, declined referral to AUD program. FU with PCP AMS (altered mental status) 03/25/2023 Cannabis use disorder, moderate, dependence 02/26 Assessment & Plan (10/20/2023 3:05 PM EST): Smokes 1 joint/d. Encephalopathy 03/25/2023 Family history of breast cancer 03/25/2023 Chronic combined systolic and diastolic hrt fail 01/26/2023 Unsteadiness on feet 01/26/2023 Paranoid schizophrenia 11/20/2022 Unsp psychosis not due to a substance or known p hysiol cond 11/04/2022 Gait disturbance 08/11/2022 Assessment & Plan (10/20/2023 3:04 PM EST): She's wheelchair bound for at least 2y, uses the seat on the walker to move around the house, it could be related to OA hips, neuropathy and muscular atrophy. Will do a home PT evaluation, she seems to have DME At home to prevent falls. 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 Chronic anemia 08/11/2022 Hypertrophic toenail 08/11/2022 Nausea and vomiting 08/11/2022 Assessment & Plan (10/20/2023 3:26 PM EST): Uncelar if related to medications, gastritis? Malignancy? EGD on 2017 Was normal and H/Pilory was treated. Will hold off on Iron for 2w since last hb on 08/31/23 was normal, will ask [facility] to fu on it. I will give sucralfate 1g tid ac meals (therapeutic trial) x 2w and fu with PCP, evaluate if she needs further w/u. Weight loss 08/11/2022 Assessment & Plan (10/20/2023 3:22 PM EST): From 215 lb on 05/2023 to 169 lb on 09/22/2023 (SNF disch summary). It could be related to decreased PO intake and multiple conditions, EGD and colonoscopy were normal on 2018. I will give sucralfate to see if PO intake improves with decreased postprandial pain (hx gastritis), she will fu with PCP to see if she needs further w/u. Syndrome of inappropriate vasopressin secretion 08/11/2022 Right knee pain 07/09/2021 Acute hyponatremia 07/08/2021 Overview (07/01/2023): Recent hyponatremia requiring hospitalization Assessment & Plan (07/01/2023 1:08 PM EDT): Will check CMP again and confirm that Sodium is not critically low requiring pt to go back to ED Encouraged pt to decrease ETOH use/amount F/u with PCP PRN Muscle wasting and atrophy, not elsewhere classified, right lower leg 07/08/2021 Unspecified dementia, unspec ified severity, without behavioral disturbance, psychotic disturbance, mood disturbance, and anxiety 07/08/2021 Cigarette smoker 02/18/2021 Non-cardiac chest pain 02/18/2021 Recurrent falls 02/18/2021 Congestive heart failure 02/17/2021 Sleep apnea, unspecified 02/17/2021 Abdominal pain 02/17/2021 Coronary arteriosclerosis 11/28/2020 Obstructive sleep apnea syndrome 11/28/2020 Acute nontraumatic kidney injury 11/28/2020 Alcohol abuse 11/12/2020 Hyperlipidemia, unspecified 11/08/2020 Major depressive disorder, recurrent, unspecifie d 11/08/2020 Constipation 11/08/2020 Chronic obstructive pulmonary disease 11/08/2020 Essential hypertension 11/08/2020 Hyperlipidemia 11/08/2020 Bipolar disorder 11/08/2020 Overview (04/07/2024): schizophrenia Mixed anxiety and depressive disorder 11/08/2020 Type 2 diabetes mellitus 11/08/2020 Stage 3a chronic kidney disease 09/23/2018 Urinary incontinence 03/21/2018 Assessment & Plan (10/20/2023 3:01 PM EST): Continue wearing pull ups Primary osteoarthritis of both knees 02/16/2018 Diabetic polyneuropathy 12/24/2017 Assessment & Plan (10/20/2023 2:55 PM EST): A1c is at goal, she can continue dietary management and fu with PCP in 3-4m Counseled about checking fgstks prn hypoglycemia sxs. Epigastric pain 12/24/2017 H. pylori infection 12/24/2017 Bipolar I disorder 12/23/2016 Type 2 diabetes mellitus with diabetic nephropat hy 12/23/2016 Chronic abdominal pain 07/23/2016 Edema 07/23/2016 Peripheral venous insufficiency 07/23/2016 Chronic obstructive pulmonar y disease with (acute) exacerbation 06/10/2016 Assessment & Plan (10/20/2023 3:17 PM EST): Continue Incruse inh + albuterol prn Restart Symbicort and fu with PCP Declined Covid booster. Recommended to get RSV and zoster vax at pharmacy. Dependence on supplemental oxygen 06/10/2016 History of appendectomy 06/10/2016 Midline low back pain 01/21/2016 Obesity, unspecified 01/21/2016 Mild intermittent asthma with status asthmaticus 12/25/2015 Obstructive sleep apnea of adult 12/25/2015 Pulmonary embolism 03/29/2013 Disorder of skeletal muscle 11/09/2012 Other specified anxiety disorders 11/04/2011 Depressive disorder 11/04/2011 Essential (primary) hypertension 06/29/2011 Asthma 05/13/2011 Tobacco use disorder, continuous 05/13/2011 Resolved Problems Problem Noted Date Diagnosed Date Resolved Date Leg pain, right 03/25/2023 12/03/2023 Acute UTI 03/25/2023 12/03/2023 Effusion of shoulder joint, left 03/25/2023 12/03/2023 Fall 03/25/2023 12/03/2023 Mass of joint of left shoulder 03/25/2023 12/03/2023 Muscle weakness (generalized) 11/24/2022 12/03/2023 Knee pain 08/11/2022 12/03/2023 Unspecified osteoarthritis, unspecified site 12/03/2023 Acute renal failure syndrome 11/28/2020 12/03/2023 Chronic kidney disease, unspecified 11/08/2020 12/03/2023 Bipolar disorder, unspecified 11/08/2020 06/17/2023 Lam hematuria 12/26/2018 10/20/2023 Gastrointestinal tube in situ 06/10/2016 10/20/2023 Osteoarthritis 01/21/2016 12/03/2023 Pain in limb 09/03/2011 12/03/2023 Encounters Date Type Department Care Team Description 05/24/2025 Refill [facility] MEDICINE [address] [place] [address] NameRyder MD 05/22/2025 Telephone [facility] [address] [place], [place] [phone] Rdyer Monique MD Durable Medical Equipment 03/27/2025 Refill [facility] [address] [place], [place] [phone] Ryder Monique MD 03/19/2025 Telephone [facility] [address] [place], [place] [phone] Ryder Monique MD Call Back Request from Last 3 Months Immunizations Immunization Administration Dates Next Due Influenza High-dose Quadriva lent Preservative Free 06/09/2022,07/24/2021,09/18/2020 Influenza injectable quadriv alent IIV4 with preservative 11/04/2020,07/12/2017 Influenza injectable quadriv alent preservative free 08/24/2023,11/05/2020,09/23/2018,10/24 Influenza, High Dose Seasona l, Preservative Free 08/03/2019 Influenza, IIV3, injectable 11/04/2020, 4 Influenza, Split (incl. liya fied surface antigen) 06/13/2013 Moderna Covid-19 Vaccine 12+ 09/30/2021,02/04/20 21 PPD Test 11/17/2020,11/09/2020 Pneumococcal Conjugate PCV 13 11/04/2020, 017 Pneumococcal Polysaccharide PPSV23 09/23/2018 Tdap 10/24/2015 Zoster, live 02/03/2013 Family History Medical History Relation Name Comments Breast cancer Sister Relation Name Status Comments Sister Social History Tobacco Use Types Packs/Day Years Used Date Smoking Tobacco: Every Day Cigarettes Smokeless Tobacco: Current Tobacco Cessation:Ready to Q uit: Not Asked; Counseling Given: Not Answered Alcohol Use Standard Drinks/Week Comments Yes 0 [...] Orientation Straight 07/27/2022 10 :15 AM EDT Last Filed Vital Signs Vital Sign Reading Time Taken Comments Blood Pressure 114/55 04/07/2024 9:41 AM EDT Pulse 70 04/07/2024 9:41 AM EDT Temperature 36.1 C (96.9 F) 04/07/2024 9:41 AM EDT Respiratory Rate 20 04/07/2024 9:41 AM EDT Oxygen Saturation 98% 04/07/2024 9:41 AM EDT Inhaled Oxygen Concentration - - Weight 97.5 kg (215 lb) 06/17/2023 1:09 PM EDT Height 160 cm (5' 3 ) 04/07/2024 9:41 AM EDT Body Mass Index 38.09 06/17/2023 1:09 PM EDT Plan of Treatment Upcoming Encounters Date Type Department Care Team (Late st Contact Info) Description 07/30/2025 10:15 AM EST Office Visit [facility] [address] [place] [address] Name, MD Ryder [address] [place] [address] Health Maintenance Due Date Last Done Comments CT Colonography 1953 Dental Prophylaxis 1953 Dental X-Ray: Bitewings 1953 FIT DNA/Cologuard 1953 FIT 1953 FOBT 1953 Sigmoidoscopy 1953 Diabetes: Foot Exam 1963 Eye Exam 1963 Alcohol/Substance Use Screening 1965 Hepatitis C Screening 1971 Zoster Vaccines (2 of 3) 03/31/2013 02/03/2013 RSV Patients and Patients Aged 60 years or older (1 - Risk 60-74 years 1-dose series) 2013 Mammogram 10/09/2021 10/09/2019, 11/24/2017 Dental Oral Exam 11/23/2021 05/22/2021, 05/22/2021 Lipid Panel 05/26/2023 05/26/2022 Dental X-Ray: Full Mouth 05/23/2024 05/22/2021 Depression Monitoring 10/08/2024 04/07/2024, 024 Diabetes: Hemoglobin A1C 10/08/2024 024, 10/20/2023, 03/25/2023, Additional history exists SDOH Screening 10/08/2024 10/08/2023 Tobacco Screening 04/07/2025 04/07/2024 COVID-19 Vaccine ( season) 2025 09/30/2021, 02/03/2021 Influenza Vaccine (#1) 2025 3, 06/09/2022, 07/24/2021, Additional history exists DTaP/Tdap/Td Vaccines (2 - Td or Tdap) 10/24/2025 10/24/2015 Colonoscopy 10/18/2027 10/18/2017 Colorectal Cancer Screening 10/18/2027 Pneumococcal Vaccine: 50+ Years Completed 11/04/2020, 09/23/2018, 07/12/2017 HIB Vaccines Aged Out No longer eligi ble based on patient's age to complete this topic HPV Vaccines Aged Out No longer eligi ble based on patient's age to complete this topic Hepatitis A Vaccines Aged Out No long er eligible based on patient's age to complete this topic Hepatitis B Vaccines Aged Out No long er eligible based on patient's age to complete this topic IPV Vaccines Aged Out No longer eligi ble based on patient's age to complete this topic Meningococcal B Vaccine Aged Out No l onger eligible based on patient's age to complete this topic Meningococcal Vaccine Aged Out No carol rudy eligible based on patient's age to complete this topic RSV under 20 months Aged Out No longe r eligible based on patient's age to complete this topic Rotavirus Vaccines Aged Out No longer eligible based on patient's age to complete this topic Procedures Procedure Name Priority Date/Time Associated Diagnosis Comments POCT GLYCATED HEMOGLOBIN, TOTAL Routine 04/07/2024 9:55 AM EDT History of diabetes mellitus LIPID PANEL, STANDARD Routine 05/26/2022 10:28 AM EDT PANORAMIC RADIOGRAPHIC IMAGE Routine 05/22/2021 12:00 AM EDT PERIODIC ORAL EVALUATION - ESTABLISHED PATIENT Routine 05/22/2021 12:00 AM EDT BI MAMMOGRAM DIAGNOSTIC BILATERAL Routine 10/09/2019 12:36 PM EST HM COLONOSCOPY Routine 10/18/2017 12:01 PM EST from Last 3 Months or Most Recently Relevant to Health Maintenance Results * POCT HGB A1C (04/07/2024 9:55 AM EDT) Hemoglobin A1C 5.3 4.0 - 6.0 % QC Media Lot # [id number] Lot# Expiration Date Blood 04/07/2024 9:55 AM EDT us Ryder Monique MD POINT OF CARE TEST ENTER/EDIT OR DERABLES Final Result * LIPID PANEL, STANDARD (05/26/2022 10:28 AM EDT) Chol/HDLC Ratio 2.1 <5.0 (calc) [facility] Cholesterol, Total 177 <200 mg/dL [facility] HDL Cholesterol 84 > OR = 50 mg/dL [facility] LDL Cholesterol 73 mg/dL (calc) [facility] Comment: Reference range: <100 Desirable range <100 mg/dL for primary prevention; <70 mg/dL for patients with CHD or diabetic patients with > or = 2 CHD risk factors. LDL-C is now calculated using the Hazel calculation, which is a validated novel method providing better accuracy than the Friedewald equation in the estimation of LDL-C. Diego MENDEZ et al. GABI. 2013;310(19): 7908-2862 (http://education.[employer]wall.com/faq/PXK493) Non-HDL Cholesterol 93 <130 mg/dL (calc) [facility] Comment: For patients with diabetes plus 1 major ASCVD risk factor, treating to a non-HDL-C goal of <100 mg/dL (LDL-C of <70 mg/dL) is considered a therapeutic option. Triglycerides 114 <150 mg/dL [facility] 05/26/2022 10:2 8 AM EDT us Ryder Monique MD LAB BLOOD ORDERABLES Final Resul t [facility] [address] * 3D BILATERAL DIAGN MAMMO 1 (10/09/2019 12:36 PM EST) Anatomical Region Laterality Modality Breast Bilateral Mammography 10/09/2019 12:3 6 PM EST Narrative 10/09/2019 12:37 PM EST Refer to the Notes tab for result details [facility] Procedure: 3D BILATERAL DIAGN MAMMO 1 Procedure Note Provider, MD Lupe - 12/19/2022 Refer to the Notes tab for result details [facility] Procedure: 3D BILATERAL DIAGN MAMMO 1 us Marine Collins CNM IMG BI PROCEDURES Final R esult * Hm Colonoscopy (10/18/2017 12:01 PM EST) Colonoscopy Normal Normal Narrative Heather Schneider - 10/18/2017 12:01 PM EST Recommended 10 year follow up us Historical Provider HEALTH MAINTENANCE Final Result from Last 3 Months or Most Recently Relevant to Health Maintenance Insurance [facility] [employer] OPT[employer] (HMO D-SNP) [facility] STANDARD DENTAL [facility] Advance Directives Documents on File Type Date Recorded 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
--- OUTSIDE RECORDS SUMMARY | 2025-06-06 05:56 | XMS_ITS ---
Author Organization [facility] Care Team Providers Care Last Dipper Name Role Phone Benson, Leif Unavailable Cosme Montoya Unavailable Unavailable Roel Barrientos Unavailable Unavailable Allergies and adverse reactions Code CodeSystem Substance Reaction Severity StartDate Concern Status Paxil Unknown 02/16/2022 active Care Team Name Role Address Phone Organization Dates Leif Knowles PCP [address] [place] [address], [facility], [facility] (Office): [phone] (Fax): [phone] [facility] 02/16/2022 - 02/24/2022 Cosme Whitfield [address] [place] [address], [address], [facility] (Office): : [facility] 02/16/2022 - 02/24/2022 Roel Barrientos [address] [place] [address], [facility] (Office): [phone] (Fax): [phone] [facility] 02/16/2022 - 02/24/2022 Goals Section Goals Description Status Target Date Lydia prefers independen t leisure activity wants to focus on therapy, but will attend some activities. Active 05/22/2022 Lydia will be free of falls through the revi ew date. Active 05/22/2022 Lydia will be free of sy mptoms of dehydration and maintain moist mucous membranes, good skin turgor. Active 05/22/2022 Lydia will be/remain amy e of psychotropic drug related complications, including movement disorder, discomfort, hypotension, gait disturbance, constipation/impaction or cognitive/behavioral impairment through review date. Active 0 05/22/2022 Lydia will have incontin ence needs met by staff through the review date. Active 05/22/2022 Lydia will have no compl ications related to diabetes through the review date. Active 05/22/2022 Lydia will have no indic ations of acute eye problems through the review date. Active 05/22/2022 Lydia will improve curre nt level of function through the review date. Active 05/22/2022 Lydia will maintain clean and intact skin by the review date. Active 05/22/2022 Lydia will not have an i nterruption in normal activities due to pain through the review date. Active 05/22/2022 Mental Status Section Date Assessment Total Score Description 02/23/2022 BIMS 09 moderate cognit phuc impairment CAM 0 No delirium ind icated PHQ-9 05 mild depression Plan of Treatment Section Interventions Intervention Code Code System Display Name Proposed D ate Problems Problem # Description Date of onset Resolved Date Code CodeSystem Concern Status 1 ALCOHOL DEPENDENCE WITH OTHER ALCOHOL-INDUCED DISORDER 02/17/[address] active 2 ATHEROSCLEROTIC HEART DISEASE OF [place] CORONARY ARTERY WITHOUT ANGINA PECTORIS 02/17/[address] active 3 BIPOLAR DISORDER, UNSPECIFIED 02/17/[address] active 4 CHRONIC OBSTRUCTIVE PULMONARY DISEASE, UNSPECIFIED 02/17/[address] active 5 ESSENTIAL (PRIMARY) HYPERTENSION 02/17/[address] active 6 HYPERLIPIDEMIA, UNSPECIFIED 02/17/[address] active 7 HYPO-OSMOLALITY AND HYPONATREMIA 02/17/[address] active 8 INFLUENZA DUE TO IDENTIFIED NOVEL INFLUENZA A VIRUS WITH OTHER RESPIRATORY MANIFESTATIONS 02/17/[address] active 9 MUSCLE WEAKNESS (GENERALIZED) 02/17/[address] active 10 OBSTRUCTIVE SLEEP APNEA (ADULT) (PEDIATRIC) 02/17/[address] active 11 OSTEOARTHRITIS OF KNEE, UNSPECIFIED 02/17/[address] active 12 PAIN IN LEFT KNEE 02/17/[address] active 13 SCHIZOPHRENIA, UNSPECIFIED 02/17/[address] active 14 SHORTNESS OF BREATH 02/17/[address] active 15 SYNCOPE AND COLLAPSE 02/17/[address] active 16 TYPE 2 DIABETES MELLITUS WITHOUT COMPLICATIONS 02/17/[address] active 17 UNSPECIFIED ABNORMALITIES OF GAIT AND MOBILITY 02/17/[address] active 18 UNSPECIFIED DEMENTIA, UNSPECIFIED SEVERITY, WITHOUT BEHAVIORAL DISTURBANCE, PSYCHOTIC DISTURBANCE, MOOD DISTURBANCE, AND ANXIETY 02/17/[address] active 19 UNSPECIFIED OSTEOARTHRITIS, UNSPECIFIED SITE 02/17/[address] active 20 UNSPECIFIED SYSTOLIC (CONGESTIVE) HEART FAILURE 02/17/[address] active 21 WERNICKE'S ENCEPHALOPATHY 02/17/[address] active Reason for Referral No Reasons for Referral Entered Social History Social History Observation Description Start Date End Date Code Code System Current Smoking Status Tobacco smoking consumption unknown 531529418 SNOMED CT Sex Assigned At Female 1955 97893-7 [facility] Gender Identity Sexual Orientation Vital Signs Code Code System Vitals Name Values and Units Timing Information 46387-3 [facility] Pain Level Value=9.0 02/23/2022 9279-1 [facility] Respiratory Rate Value=18.0 Units=/m in 02/23/2022 8310-5 [facility] Body Temperature Value=97.9 Units= F 02/23/2022 84015-2 [facility] O2 % BldC Oximetry Value=85.0 Units= % 02/23/2022 2339-0 [facility] Blood Sugar Ynnzz=042.0 Units=mg/dL 02/23/2022 8462-4 [facility] Blood Pressure-Diastolic Value=74 Un its=mmHg 02/23/2022 8480-6 [facility] Blood Pressure-Systolic Qppll=514 Un its=mmHg 02/23/2022 8867-4 [facility] Heart rate Value=73.0 Units=/min 8302-2 [facility] Height Value=60.0 Units=Inches 02/20/2022 03783-4 [facility] Weight Lzcvy=319.3 Units=Lbs
--- NOTE | 2025-06-06 06:02 | ED_ITS ---
HPI - General Adult General Chief complaint: General Medical Stated complaint: ABD PAIN, NO BM FOR 3DAYS Time Seen by Provider: 06/06/25 05:58 Source: EMS Mode of arrival: EMS Limitations: no limitations History of Present Illness HPI narrative: This is a 70 years old the patient presented to the ED with a chief complaint of abdominal pain, the pain is localized in the lower abdomen no radiation, patient states that she has not gone to the bathroom overnight about 2 weeks. Denies any fever vomiting. She has history of COPD O2 dependent she continued with the smoke Onset (ago): week(s) (2) Location: abdomen Radiation: non-radiation Severity: moderate Pain Consistency: constant Relieving factors: none Exacerbating factors: none Associated symptoms: denies other symptoms Related Data Home Medications ?Medication ?Instructions ?Recorded ?Confirmed albuterol sulfate 90 mcg/actuation 2 puff inhalation Q 4H PRN 11/26/22 09/05/24 aerosol inhaler (Ventolin HFA) Shortness Of Breath Or Wheezing aspirin 81 mg tablet,delayed 1 tab PO DAILY 11/26/22 1 11/06/23 release metoprolol succinate 25 mg 1 tab PO DAILY 11/26/2207/20 tablet,extended release 24 hr montelukast 10 mg tablet 1 tab PO BEDTIME 11/26/22 pravastatin 20 mg tablet 1 tab PO BEDTIME 11/26/22 trazodone 50 mg tablet 1 tab PO BEDTIME PRN insomni a 11/26/22 09/05/24 fluticasone 250 mcg-salmeterol 50 1 inh inhalation BID 01/31/23 09/05/24 mcg/dose blistr powdr for inhalation (Advair Diskus) ondansetron HCl 4 mg tablet 4 mg PO BID PRN nausea 04/1809/05/24 acamprosate 333 mg tablet,delayed 666 mg PO TID 09/05/24 release albuterol sulfate 2.5 mg/3 mL 2.5 mg inhalation Q4H W[place] N Wheezing 05/25/23 09/05/24 (0.083 %) solution for nebulization omeprazole 40 mg capsule,delayed 40 mg PO DAILY@0630 0 06/19/24 09/05/24 release acetaminophen 650 mg 650 mg PO Q8H 08/05/2409/05 tablet,extended release ferrous sulfate 325 mg (65 mg 325 mg PO DAILY 08/05/24 09/05/24 iron) tablet,delayed release Previous Rx's ?Medication ?Instructions ?Recorded baclofen 20 mg tablet 20 mg PO DAILY PRN Back Pain 30 04/29/22 days #30 tabs multivitamin (Daily-Cony tablet) 1 tab PO DAILY 30 day s #30 tabs 04/29/22 Allergies Allergy/AdvReac Type Severity Reaction Status Date / Time fluticasone (From Advair Allergy Unknown Verified 06/06/25 05:40 Diskus) salmeterol (From Advair Allergy Unknown Verified 06/06/25 05:40 Diskus) paroxetine (From Paxil) AdvReac Intermediate Nausea and Verified 06/06/25 05:40 Vomiting Review of Systems 2 Constitutional: Constitutional: Reports no additional constitutional complaints ENT: Reports system reviewed and no additional complaints, except as documented Gastrointestinal: Gastrointestinal: Reports no additional gastrointestinal complaints [facility] Past Medical History Attestation statement: The following information was validated with the patient. Medical History Bipolar 1 disorder COPD (chronic obstructive pulmonary disease) Effusion of shoulder joint, left Mass of joint of left shoulder Cannabis use disorder, moderate, dependence Dementia Korsakoff disease Chronic hyponatremia Schizophrenia Congestive heart failure Osteoarthritis COPD (chronic obstructive pulmonary disease) Hypertension Diabetes Coronary artery disease Sleep apnea Alcohol use disorder Surgical History Hx of appendectomy Family History Family History Sister Breast cancer, Onset Age: 40 Sister Breast cancer, Onset Age: 50 Social History Social History Household Members: Spouse Household Members Other:: 2 Housing: Unknown / Unable to assess Do you presently have visiting nurse or other home services: Yes Unable to assess alcohol history related to: Unknown Alcohol intake: current Alcohol intake frequency: a few times a month Alcohol type: beer Comment: 1:1 at bedside Patient Tobacco Use Status: Tobacco use Unknown Tobacco use type: Cigarette Cigarette Packs Per Day: 0.5 Cigarettes Per Day: 10.0 Years Smoked: 53 e-Cigarette/Vaping Use: Never Used Second Hand Smoke Exposure: No Substance Use Type: Marijuana Advance Directives Date on File: 10/10/20 service: No Current occupational status: unemployed, disabled and other Sexual orientation: Straight/Heterosexual Physical Exam ED Exam Exam: No acute distress comfortable in the stretcher Vital Signs: Vital Signs - 24 hr 06/06/25 05:42 06/06/25 11:39 06/06/25 14:45 Temperature 98.4 F 98 F 98 F Pulse Rate 91 82 83 Respiratory Rate 16 16 16 Blood Pressure 136/62 139/77 144/88 H Pulse Oximetry 99 100 96 Oxygen Delivery Method Room Air Nasal Cannula Nasal Cannula Oxygen Flow Rate 2 2 BMI result Body Mass Index 37.8 Const General: cooperative Nutritional Appearance: average body habitus Limitations: no limitations HENMT Head: Yes normal to inspection General nose exam: Normal external nose present Face and sinus: Yes normal facial exam Mouth: Normal oral and palatal mucosa present Neck Neck: Yes normal visual inspection Chest Chest palpation & inspection: normal inspection of the chest Resp Effort & Inspection: normal respiratory effort Cardio Jugular venous distension: no JVD Rate: regular rate Rhythm: regular rhythm GI Other: rectal exam done no fecal impaction stools brown Inspection: Yes normal to inspection Palpation (GI): Soft to palpation, not firm and nontender Skin General skin exam: no rashes or lesions noted and elasticity normal Lesions: no lesions Rashes: no rashes Extrem General: Yes normal to inspection and Yes full ROM Course Reevaluation(s) Reevaluation #1: Patient had a large bowel movement in ED feels much better at this time, sodium was noted she has chronic hyponatremia initial sodium was 121 we will rechecked and was 126. I think she can be discharged home she is feeling well she wants to go home Time: 10:41 Medications Administered Discontinued Medications Generic Name Dose Route Start Last Admin Trade Name Freq PRN Reason Stop Dose Admin Sodium Chloride 1,000 mls @ 999 mls/hr 06/06/25 06:45 06/06/25 09:26 Ns IVCONT 06/06/25 07:45 Infused .Q1H1M YUMIKO Infusion Sodium Biphosphate/Sodium Phosphate 133 ml 06/06/25 06:34 06/06/25 07:08 Sodium Phosphate,Mitchell-Dibasic 133 Ml Enema WY 09/10/25 06:35 133 ml ONCE ONE Administration Medical Decision Making Medical Decision Making [facility] Narrative: Patient is here with lower abdominal pain history of constipation we will obtain labs and imaging Differential Diagnosis Differential Diagnoses: The differential diagnosis associated with the presentation includes Question of constipation ?bowel obstruction question colitis question diverticulitis Admission/Observation Consideration of admission/observation: Escalation of care including admission/observation considered Lab Data 06/06/25 06:04 06/06/25 09:25 Labs: Lab Results 06/06/25 06/06/25 06/06/25 Range/Units 06:04 07:42 09:25 WBC 9.9 (4.8-10.8) X10*3/uL RBC 3.28 L D (4.20-5.50) X10*6/uL Hgb 9.3 L D (12.0-16.0) g/dl Hct 26.6 L D (37.0-47.0) % MCV 81.1 (80.0-98.0) fL MCH 28.4 (27.0-33.0) pg MCHC 35.0 (31.0-35.0) g/dl RDW 13.6 (11.0-16.0) % Plt Count 386 (160-400) X10*3/uL MPV 8.2 L (9.4-12.3) fL Immature Gran % (Auto) 2.8 H (0.0-0.4) % Neut % (Auto) 78.8 H (45-73) % Lymph % (Auto) 7.9 L (20-40) % Mitchell % (Auto) 10.3 (2-11) % Eos % (Auto) 0.1 (0-4) % Baso % (Auto) 0.1 (0-2) % Lymph # (Auto) 0.8 L (1.2-4.9) X10*3/uL Mitchell # (Auto) 1.0 (0.1-1.2) X10*3/uL Eos # (Auto) 0.0 (0.0-0.4) X10*3/uL Baso # (Auto) 0.0 (0.0-0.2) X10*3/uL Abs Immat Gran (auto) 0.28 H (0.00-0.03) X10*3/uL Absolute Neuts (auto) 7.8 (2.0-8.3) x10*3/uL Absolute Nucleated RBC 0.000 (0.0-0.012) X10*3/uL Nucleated RBC % (auto) 0.0 (0.0-0.2) /100WBC Sodium 121 L 126 L (135-145) mmol/L Potassium 4.7 4.0 (3.3-5.1) mmol/L Chloride 91 L 97 (96-108) mmol/L Carbon Dioxide 21 L 19 L (22-29) mmol/L Anion Gap 14 14 (12-20) BUN 21 H 18 H (9-16) mg/dL Creatinine 0.73 0.63 (0.5-1.4) mg/dL Estim Creat Clear Calc 71.4 82.7 Estimated GFR > 60 > 60 Random Glucose 118 H 120 H (60-115) mg/dL Calcium 8.7 8.3 L (8.4-10.2) mg/dL Total Bilirubin 0.4 0.4 (0.0-1.0) mg/dL AST 24 19 (5-31) U/L ALT < 6 < 6 (0-31) U/L Alkaline Phosphatase 106 103 (39-117) U/L Total Protein 7.0 6.5 (6.5-8.0) g/dL Albumin 2.9 L 2.8 L (3.5-5.0) g/dL Lipase 12 (8-78) U/L Stool Occult Blood NEGATIVE (NEGATIVE) COVID-19 (ZAKIA) Negative (Negative) COVID-19 Clin Com See Note Discharge Plan Discharge Clinical Impression: Chronic hyponatremia Constipation Qualifiers: Constipation type: unspecified constipation type Qualified Code(s): K59.00 - Constipation, unspecified Patient Disposition: Home, Self-Care Instructions: Constipation (DC) Additional Instructions: Follow-up with your primary care physician return if worse Prescriptions: No Action multivitamin [Daily-Cony] Tablet 1 tab PO DAILY 30 Days Qty: 30 0RF Rx Instructions: With Food baclofen 20 mg Tablet 20 mg PO DAILY PRN (Reason: Back Pain) 30 Days Qty: 30 0RF trazodone 50 mg tablet 1 tab PO BEDTIME PRN (Reason: insomnia) montelukast 10 mg tablet 1 tab PO BEDTIME pravastatin 20 mg tablet 1 tab PO BEDTIME metoprolol succinate 25 mg tablet extended release 24 hr 1 tab PO DAILY albuterol sulfate [Ventolin HFA] 90 mcg/actuation HFA aerosol inhaler 2 puff INHALATION Q4H PRN (Reason: Shortness Of Breath Or Wheezing) aspirin 81 mg tablet,delayed release (DR/EC) 1 tab PO DAILY fluticasone propion-salmeterol [Advair Diskus] 250-50 mcg/dose blister with device 1 inh INHALATION BID ondansetron HCl 4 mg tablet 4 mg PO BID PRN (Reason: nausea) omeprazole 40 mg capsule,delayed release(DR/EC) 40 mg PO DAILY@0630 acetaminophen 650 mg tablet extended release 650 mg PO Q8H ferrous sulfate 325 mg (65 mg iron) tablet,delayed release (DR/EC) 325 mg PO DAILY albuterol sulfate 2.5 mg /3 mL (0.083 %) solution for nebulization 2.5 mg inhalation Q4H PRN (Reason: Wheezing) acamprosate 333 mg tablet,delayed release (DR/EC) 666 mg PO TID Referrals: Name,MD Ryder [Primary Care Provider, Internal Medicine] - 06/08/25 Interventions: ED Discharge Assessment Last Done: 06/06/25 14:45 Discharge Date/Time: 06/06/25 14:46 Print Language: [place]
[2025-06-06 06:10] LABS: MANUAL DIFF FLAG NO
[2025-06-06 06:21] LABS: COVID-19 Test Negative (Negative); Hematocrit 26.6 % (37.0-47.0); Hemoglobin 9.3 g/dl (12.0-16.0); IDNOW Serial# 55D5AD1C; Imm Gran Abs Auto 0.28 X10*3/uL (0.00-0.03); Imm Gran Pct Auto 2.8 % (0.0-0.4); Lymphocytes Absolute Auto 0.8 X10*3/uL (1.2-4.9); Mean Corpuscular HGB Conc 35.0 g/dl (31.0-35.0); Mean Corpuscular Hemoglobin 28.4 pg (27.0-33.0); Mean Corpuscular Volume 81.1 fL (80.0-98.0); NRBC Abs Auto 0.000 X10*3/uL (0.0-0.012); NRBC Pct Auto 0.0 /100WBC (0.0-0.2); Platelet Count 386 X10*3/uL (160-400); Red Blood Count 3.28 X10*6/uL (4.20-5.50); White Blood Count 9.9 X10*3/uL (4.8-10.8)
[2025-06-06 06:28] LABS: Alanine Aminotransferase < 6 U/L (0-31); Albumin Level 2.9 g/dL (3.5-5.0); Alkaline Phosphatase 106 U/L (39-117); Anion Gap 14 (12-20); Aspartate Amino Transferase 24 U/L (5-31); Blood Urea Nitrogen 21 mg/dL (9-16); Calcium 8.7 mg/dL (8.4-10.2); Carbon Dioxide 21 mmol/L (22-29); Chloride 91 mmol/L (96-108); Creatinine Clr Calc Pharmacy 71.4; Estimated Glomerular Filt Rate > 60; Lipase 12 U/L (8-78); Potassium 4.7 mmol/L (3.3-5.1); Sodium 121 mmol/L (135-145); Total Protein 7.0 g/dL (6.5-8.0)
[2025-06-06 07:52] LABS: OBS1 NEGATIVE (NEGATIVE)
[2025-06-06 07:53] LABS: OBS Int Ctl Valid YES
[2025-06-06 09:54] LABS: Alanine Aminotransferase < 6 U/L (0-31); Albumin Level 2.8 g/dL (3.5-5.0); Alkaline Phosphatase 103 U/L (39-117); Anion Gap 14 (12-20); Aspartate Amino Transferase 19 U/L (5-31); Blood Urea Nitrogen 18 mg/dL (9-16); Calcium 8.3 mg/dL (8.4-10.2); Carbon Dioxide 19 mmol/L (22-29); Chloride 97 mmol/L (96-108); Creatinine Clr Calc Pharmacy 82.7; Estimated Glomerular Filt Rate > 60; Potassium 4.0 mmol/L (3.3-5.1); Sodium 126 mmol/L (135-145); Total Protein 6.5 g/dL (6.5-8.0)
[2025-06-06 11:39] VITALS: BP 139/77; PULSE 82; RESP 16; TEMP 36.6; O2SAT 100
[2025-06-06 14:45] VITALS: BP 144/88; PULSE 83; RESP 16; TEMP 36.6; O2SAT 96
== END 2025-06-06 14:46 | disposition home or self-care (01) ==
PROVIDERS: Emergency Provider Emergency Medicine; PCP Internal Medicine Geriatric Medicine
DX: K59.00 Constipation, unspecified (principal); R10.30 Lower abdominal pain, unspecified; J44.9 Chronic obstructive pulmonary disease, unspecified; E11.9 Type 2 diabetes mellitus without complications; Z99.81 Dependence on supplemental oxygen; Z79.899 Other long term (current) drug therapy
CPT/HCPCS: 36415; 74176; 80053; 82272; 83690; 85025; 87635; 96360; 96361; 99284

== ENCOUNTER → 2025-06-06 06:00 | Outpatient (BNV) | payer OTHER, SELFPAY | PROVIDERS: Emergency Provider Emergency Medicine; PCP Internal Medicine Geriatric Medicine; Visit Provider Radiology Diagnostic Radiology | DX: R10.30 Lower abdominal pain, unspecified (principal); M25.851 Other specified joint disorders, right hip; M25.852 Other specified joint disorders, left hip | CPT/HCPCS: 74176 ==

== ENCOUNTER 2025-06-15 03:01 | Emergency (ER) | payer OTHER, SELFPAY ==
[2025-06-15 03:10] VITALS: BP 100/53; BP 122/64; PULSE 72; PULSE 75; RESP 16; TEMP 36.1; O2SAT 95; O2SAT 97; BMI 21.4
--- OUTSIDE RECORDS SUMMARY | 2025-06-15 03:27 | XMS_ITS | Clinical Summary ---
Author Organization [facility] Address [address] [place] [address] Phone Care Team Providers Care Stevedoring Supervisor Name Role Phone Unavailable Primary Care Provider [...] age to complete this topic Insurance ([id number]) [place] [address] ([id number]) ALICIA MONTOYA [id number]
--- OUTSIDE RECORDS SUMMARY | 2025-06-15 03:27 | XMS_ITS | Encounter Summary ---
Author Organization [employer] Address [address] [place] [address] Care Team Providers Care Rent Collector Name Role Phone Name, Ryder HARTLEY Primary Care Provider [phone] Reason for Visit * Reason Comments Med Refill Encounter Details Date Type Department Care Team ([facility] Contact Info) Description 01/13/2025 Refill [facility] [address] [place], [place] [id number] Name, MD Ryder [address] [place] [address] Social History Tobacco Use Types Packs/Day Years [...] Description 07/30/2025 10:15 AM EST Office Visit [facility] [address] [place] [address] Name, MD Ryder [address] [place] [address] documented as of this encounter Visit Diagnoses Not on filedocumented in this encounter Additional Health Concerns Assessment Noted Time PHQ-9 Depression Total Score: 13 024 11:35 AM EDT documented as of this encounter Care Teams Rent Collector Relationship Specialty Start Date End Date NameRyder MD [address] [place] [address] PCP - General Family Medicine 12/25/[address] [facility] 02/09/24 documented as of this encounter
--- OUTSIDE RECORDS SUMMARY | 2025-06-15 03:27 | XMS_ITS | Encounter Summary ---
Author Organization [email or web address] Address [address] [place] [address] Care Team Providers Care Set Up Mechanic Coating Machines Name Role Phone Name, Ryder HARTLEY Primary Care Provider [phone] Reason for Visit * Reason Onset Date Comments Reschedule 10/08/2023 Encounter Details Date Type Department Care Team ([facility] Contact Info) Description 10/08/2023 Telephone [facility] [address] [place] [address] Name, MD Ryder [address] [place] [address] Reschedule Social History Tobacco Use Types Packs/Day [...] Tc from samantha requesting to r/s 10/04 [facility] appointment. Please contact samantha at [phone] (Somali) documented in this encounter Plan of Treatment Upcoming Encounters Date Type Department Care Team (Late st Contact Info) Description 07/30/2025 10:15 AM EST Office Visit [facility] [address] [place] [address] Name, MD Ryder [address] [place] [address] documented as of this encounter Visit Diagnoses Not on filedocumented in this encounter Care Teams Set Up Mechanic Coating Machines Relationship Specialty Start Date End Date NameRyder MD [address] [place] [address] PCP - General Family Medicine 12/25/15 [facility] 02/09/24 documented as of this encounter
--- OUTSIDE RECORDS SUMMARY | 2025-06-15 03:27 | XMS_ITS | Encounter Summary ---
Author Organization [employer] Address [address] [place] [address] Care Team Providers Care Chief Hospital Administrator Name Role Phone Name, Ryder HARTLEY Primary Care Provider [phone] Encounter Details Date Type Department Care Team (Late st Contact Info) Description 08/27/2022 Abstract [facility] [address] [place] [address] Name, MD Ryder [address] [place] [address] Social History Tobacco Use Types Packs/Day Years [...] Description 07/30/2025 10:15 AM EST Office Visit [facility] [address] [facility] [place] [address] Name, MD Ryder [address] [facility] [place] [address] documented as of this encounter Visit Diagnoses Not on filedocumented in this encounter Care Teams Chief Hospital Administrator Relationship Specialty Start Date End Date Name, MD Ryder [facility] [place] [address] PCP - General Family Medicine 12/25/15 [facility] 02/09/24 documented as of this encounter
--- OUTSIDE RECORDS SUMMARY | 2025-06-15 03:27 | XMS_ITS | Encounter Summary ---
Author Organization [employer] Address [address] [facility] [address] 7t [place] [address] Care Team Providers Care Bus Driver/Monitor Name Role Phone Name, Ryder HARTLEY Primary Care Provider [phone] Reason for Visit * Reason Onset Date Comments FYI 08/24/2023 Encounter Details Date Type Department Care Team ([facility] Contact Info) Description 08/24/2023 Telephone [facility] MEDICINE [address] [place] [address] Name, MD Ryder 230 [place] [address] FYI Social History Tobacco Use Types Packs/Day [...] the past 12 months, has t he [employer], oil or water company threatened to shut [...] RN - 08/24/2023 3:08 PM EST Noted. [facility] progress note printed, reviewed by pcp and [facility]. * Telephone Encounter - Yisel Ceron - 08/24/2023 9:12 AM EST Tc from samantha calling to advise PCP pt is currently admitted at [facility] and will not be discharged dueto her conditions. Any questions/clarification, please contact samantha at [phone] (Faroese) documented in this encounter Plan of Treatment Upcoming Encounters Date Type Department Care Team (Late st Contact Info) Description 07/30/2025 10:15 AM EST Office Visit [facility] MEDICINE [address] [place] [address] Name, MD Ryder 230 [place] [address] documented as of this encounter Visit Diagnoses Not on filedocumented in this encounter Care Teams Bus Driver/Monitor Relationship Specialty Start Date End Date Name, MD Ryder [address] [place] [address] PCP - General Family Medicine 12/25/[address] [facility] 02/09/24 documented as of this encounter
--- OUTSIDE RECORDS SUMMARY | 2025-06-15 03:27 | XMS_ITS | Encounter Summary ---
Author Organization [employer] Address [address] [facility] [address] 7t [place] [address] Care Team Providers Care Bridges And Buildings Supervisor Name Role Phone Name, Ryder HARTLEY Primary Care Provider [phone] Reason for Visit * Reason Comments Med Refill Encounter Details Date Type Department Care Team ([facility] Contact Info) Description 07/18/2023 Refill [facility] MED[facility]INE 230 [place] [address] Alison Rodriguez MD 230 [place], [place] [phone] Social History Tobacco Use Types Packs/Day Years [...] Description 07/30/2025 10:15 AM EST Office Visit [facility] [address] [place] [phone] Name, MD Ryder [address] [place] [address] documented as of this encounter Visit Diagnoses Not on filedocumented in this encounter Care Teams Bridges And Buildings Supervisor Relationship Specialty Start Date End Date Name, MD Ryder [address] [place] [address] PCP - General Family Medicine 12/25/15 [facility] 02/09/24 documented as of this encounter
--- OUTSIDE RECORDS SUMMARY | 2025-06-15 03:27 | XMS_ITS | Encounter Summary ---
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 Please contact emory at [phone] documented in this encounter Plan of Treatment Upcoming Encounters Date Type Department Care Team (Late Contact Info) Description 07/30/2025 10:15 AM EST [facility] [address] [facility] [place] [address] Name, MD Ryder [facility] [place] [address] documented as of this encounter Visit Diagnoses Not on filedocumented in this encounter Care Teams Superintendent Ammunition Storage Relationship Specialty Start Date End Date Name, MD Ryder [facility] [place] [address] PCP - General Family Medicine 12/25/15 [facility] 02/09/24 documented as of this encounter
--- OUTSIDE RECORDS SUMMARY | 2025-06-15 03:27 | XMS_ITS | Encounter Summary ---
Author Organization [employer] [facility] Address [address] [facility] 7t [place] [address] Care Team Providers Care Tunnel Man Name Role Phone Name, Ryder HARTLEY Primary Care Provider [phone] Encounter Details Date Type Department Care Team (Late Contact Info) Description 03/09/2023 Abstract [facility] MEDICINE [address] [place] [address] [phone] NameRyder MD [address] [place] [address] [phone] Social History Tobacco Use Types Packs/Day Years [...] Description 07/30/2025 10:15 AM EST Office Visit [facility] MEDICINE [address] [place] [address] [phone] NameRyder MD [address] [place] [address] [phone] documented as of this encounter Procedures Procedure [...] on filedocumented in this encounter Care Teams Tunnel Man Relationship Specialty Start Date End Date Name, MD Ryder 230 [place] [address] PCP - General Family Medicine 12/25/15 [facility] 02/09/24 documented as of this encounter
--- OUTSIDE RECORDS SUMMARY | 2025-06-15 03:27 | XMS_ITS | Encounter Summary ---
Author Organization [employer] Address [address] [facility] [address] 7t [place] [address] Care Team Providers Care Target Worker Name Role Phone Name, Ryder HARTLEY Primary Care Provider [phone] Reason for Visit * Reason Onset Date Comments Med Refill 11/24/2023 Encounter Details Date Type Department Care Team ([facility] st Contact Info) Description 11/24/2023 Refill [facility] MEDICINE 230 [place], [place] [phone] Name, MD Ryder 230 [place] [address] Social History Tobacco Use Types Packs/Day Years [...] 50 MG tablet To be sent to: [facility] - [place], [place] - [address] [place] [address] documented in this encounter Plan of Treatment Upcoming Encounters Date Type Department Care Team (Late st Contact Info) Description 07/30/2025 10:15 AM EST Office Visit [facility] MEDICINE 230 [place] [address] NameRyder MD 230 [place] [address] documented as of this encounter Visit Diagnoses Not on filedocumented in this encounter Care Teams Target Worker Relationship Specialty Start Date End Date Ryder Monique MD 230 [place] [address] PCP - General Family Medicine 12/25/15 [facility] 02/09/24 documented as of this encounter
--- OUTSIDE RECORDS SUMMARY | 2025-06-15 03:27 | XMS_ITS | Encounter Summary ---
Author Organization [employer] Address [address] [facility] 7t [place] [address] Care Team Providers Care Concrete Conveyor Operator Name Role Phone Name, Ryder HARTLEY Primary Care Provider [phone] Reason for Visit * Reason Comments Med Refill Encounter Details Date Type Department Care Team ([facility] Contact Info) Description 04/16/2023 Refill [facility] MEDICINE 230 [place], [place] [phone] Name, MD Ryder 230 [place] [address] COPD exacerbation ([facility]) Social History Tobacco Use Types Packs/Day Years [...] Description 07/30/2025 10:15 AM EST Office Visit [facility] MEDICINE 230 [place] [address] Name, MD Ryder [address] [place] [address] documented as of this encounter Visit Diagnoses Diagnosis COPD exacerbation ([facility]) Obstructive chronic bronchitis with exacerbation documented in this encounter Care Teams Concrete Conveyor Operator Relationship Specialty Start Date End Date NameRyder MD [address] [place] [address] PCP - General Family Medicine 12/25/15 [facility] 02/09/24 documented as of this encounter
--- OUTSIDE RECORDS SUMMARY | 2025-06-15 03:27 | XMS_ITS | Clinical Summary ---
Author Organization [employer] Address [address] [facility] [address] 7t [place] [address] Care Team Providers Care Garment Finisher Name Role Phone Name, Ryder HARTLEY Primary Care Provider Allergies Active Allergy Reactions Criticality Noted Date [...] he can, they're being evaluated for a PICTURE PAINTER. 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 Chronic anemia 08/11/2022 Hypertrophic [...] Encounters Date Type Department Care Team Description 06/06/2025 Orders Only [facility] External Provider, [facility] 05/24/2025 Refill [facility] MEDICINE 230 [place] [address] NameRyder MD 05/22/2025 Telephone [facility] MEDICINE 230 [place], [place] [phone] Ryder Monique MD [facility] 03/27/2025 Refill [facility] [address] [place], [place] [phone] Ryder Monique MD 03/19/2025 Telephone [facility] MEDICINE 230 [place], [place] [phone] NameRyder MD Call Back Request from Last 3 [...] Description 07/30/2025 10:15 AM EST Office Visit [facility] MEDICINE [address] [place] [address] Name, MD Ryder 230 [place] [address] Health Maintenance Due Date Last Done Comments [...] 10/08/2023 Tobacco Screening 04/07/2025 04/07/2024 COVID-19 Vaccine (3 - season) 2025 09/30/2021, 02/03/2021 Influenza Vaccine (#1) [...] Procedure Name Priority Date/Time Associated Diagnosis Comments COMPREHENSIVE METABOLIC PANEL Routine 06/06/2025 9:25 AM EDT OBSX1 Routine 06/06/2025 7:[address] ABDOMEN PELVIS WO CONTRAST Routine 06/06/2025 7:26 AM EDT POCT GLYCATED HEMOGLOBIN, TOTAL Routine 04/07/2024 9:55 [...] Recently Relevant to Health Maintenance Results * (ABNORMAL) Comprehensive Metabolic Panel (06/06/2025 9:25 AM EDT) Sodium 126(L) 135 - 145 mmol/L [facility] Potassium 4.0 3.3 - 5.1 mmol/L [facility] Chloride 97 96 - 108 mmol/L [facility] Carbon Dioxide 19(L) 22 - 29 mmol/L [facility] Anion Gap 14 12 - 20 [facility] Urea Nitrogen (BUN) 18(H) 9 - 16 mg/dL [facility] Creatinine, Serum 0.63 0.5 - 1.4 mg/dL [facility] Creatinine Clr Calc Pharmacy 82.7 [facility] Comment:Provided height and weight: 154.94 cm,90.718 kg.eGFR (calculated from the MDRD study equation) and eCrCl(calculated from the Cockcroft-Gault equation) are based ondifferent parameters and may not yield comparable results.If eCrCl result is absurd, please check patient'sheight/weight. Estimated Glomerular Filt Rate >60 [facility] Comment:Chronic Kidney Disea se: Estimated GFR < 60 mL/min/1.82q7Qqnjtj Kidney Disease: Estimated GFR < 15 mL/min/1.73m2 Glucose 120(H) 60 - 115 mg/dL [facility] Calcium 8.3(L) 8.4 - 10.2 mg/dL [facility] Bilirubin, Total 0.4 0.0 - 1.0 mg/dL [facility] Aspartate Amino Transferase 19 5 - 31 U/L [facility] Alanine Aminotransferase <6 0 - 31 U/L [facility] Total Protein 6.5 6.5 - 8.0 g/dL [facility] Albumin Level 2.8(L) 3.5 - 5.0 g/dL [facility] Alkaline Phosphatase 103 39 - 117 U/L [facility] 06/06/2025 9:25 AM EDT 06/06/2025 9:29 AM EDT us Generic External Data Provider LAB BLOOD ORDERAB LES Final Result Performing Organization Address [facility] de Phone Number [facility] [address] [place] [phone] * OBSX1 (06/06/2025 7:42 AM EDT) OBS1 NEGATIVE NEGATIVE [facility] 06/06/2025 7:42 AM EDT 06/06/2025 7:44 AM EDT Generic External Data Provider LAB BLOOD ORDERAB LES Final Result Performing Organization Address [facility] Phone Number [facility] [address] [place] [phone] * CT Abdomen Pelvis w/o Contrast (06/06/2025 7:26 AM EDT) Anatomical Region Laterality Modality Body, Pelvis, Abdomen Computed T omography 06/06/2025 7:26 AM EDT Narrative 06/06/2025 7:27 AM EDT [address] [address] [address] Scan Report Signed Patient: Belia Richardson#: [id number] : 1955 Acct:[id number] Age/Sex: 70 / F ADM Date: 06/06/25 Loc: .ED Attending Dr: Ordering Physician: Seven Ross MD Date of Service: 06/06/25 Procedure(s): CT abdomen pelvis wo IV con Accession Number(s): [id number] cc: Seven Ross MD; Name,Ryder HARTLEY Report Number: [id number]: Total DLP = 440.00 mGy-cm Reason for Exam: ? constipation ? colitis CLINICAL HISTORY: ? constipation ? colitis CT abdomen and pelvis without contrast Comparison: CT/REG/ND/SR - CT ABDOMEN PELVIS WITHOUT THEN WITH IV CONTRAST - 08/08/24 17:08 EST Findings: Study limited by lack of intravenous contrast. Specifically, evaluation of the vascular tree, solid abdominal organ gastrointestinal tract limited contrast administration. CT abdomen: No infiltrates within the lung bases. Degenerative change throughout the visualized thoracolumbar spine without acute compression fracture. No renal or ureteral calculi identified. No hydronephrosis or perinephric stranding. Small gallstones measuring less than 5 mm in size. No gallbladder wall thickening or pericholecystic fluid. Unenhanced liver, spleen, pancreas, and adrenal glands are unremarkable. Stomach is decompressed. Potential gastric wall thickening. No dilated small bowel. No free fluid or free air. Dense vascular calcification of the abdominal aorta, iliac arteries, and mesenteric arteries. CT pelvis: Scattered diverticuli throughout the colon. No findings of diverticulitis. Ivpw-ws-lpadclzg stool throughout the colon. No dilated small bowel. Fat containing ventral hernia midline midline inferior to the umbilicus Urinary bladder is moderately distended. Extensive erosive change of both hip joints as seen previously with extensive acetabular protrusio bilaterally. Extensive bony remodeling of the femoral heads and acetabula with marked thinning of the medial acetabular esparza bilaterally with areas of unchanged cortical breach of the medial acetabular wall bilaterally. There is fluid seen medial to the acetabulum bilaterally, ibrq-kgglptd-caoh-right. This was previously more pronounced on the right. On the left, this currently measures 2.8 x 4.4 cm in size. IMPRESSION: 1. Study limited due to lack of intravenous contrast. 2. No findings of bowel obstruction or colitis. 3. Question mild gastritis. 4. Extensive abnormality of both hip joints as above. 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 Please see above for full details. Rheumatoid arthritis should be considered as a potential etiology. This document has been electronically signed by: Octavio Bustillos MD on 06/06/2025 07:26:06 Dictated By: Octavio Bustillos MD Signed By: <Electronically signed by Octavio Bustillos MD in OV> 06/06/25725 DD/ 5 TD/TT: 06/06/25725 Public Transit Bus Driver: Procedure Note Donotuseinterpreter, Image - 06/06/[address] [place] [address] [address] Scan Report Signed Patient: Marcos Richardson R#: [id number] : 3Acct:[id number] Age/Sex: 70 / FADM Date: 06/06/25 Loc: HO.ED Attending Dr: Ordering Physician: Seven Ross MD Date of Service: 06/06/25 Procedure(s): CT abdomen pelvis wo IV con Accession Number(s): [id number] cc: Seven Ross MD; Name,Ryder HARTLEY Report Number: [id number]: Total DLP = 440.00 mGy-cm Reason for Exam: ? constipation ? colitis CLINICAL HISTORY: ? constipation ? colitis CT abdomen and pelvis without contrast Comparison: CT/REG/ND/SR - CT ABDOMEN PELVIS WITHOUT THEN WITH IV CONTRAST - 08/08/24 17:08 EST Findings: Study limited by lack of intravenous contrast. Specifically, evaluation of the vascular tree, solid abdominal organ gastrointestinal tract limited contrast administration. CT abdomen: No infiltrates within the lung bases. Degenerative change throughout the visualized thoracolumbar spine without acute compression fracture. No renal or ureteral calculi identified. No hydronephrosis or perinephric stranding. Small gallstones measuring less than 5 mm in size. No gallbladder wall thickening or pericholecystic fluid. Unenhanced liver, spleen, pancreas, and adrenal glands are unremarkable. Stomach is decompressed. Potential gastric wall thickening. No dilated small bowel. No free fluid or free air. Dense vascular calcification of the abdominal aorta, iliac arteries, and mesenteric arteries. CT pelvis: Scattered diverticuli throughout the colon. No findings of diverticulitis. Xkic-mg-sukxbljl stool throughout the colon. No dilated small bowel. Fat containing ventral hernia midline midline inferior to the umbilicus Urinary bladder is moderately distended. Extensive erosive change of both hip joints as seen previously with extensive acetabular protrusio bilaterally. Extensive bony remodeling of the femoral heads and acetabula with marked thinning of the medial acetabular esparza bilaterally with areas of unchanged cortical breach of the medial acetabular wall bilaterally. There is fluid seen medial to the acetabulum bilaterally, yidt-unjalgj-eawg-right. This was previously more pronounced on the right. On the left, this currently measures 2.8 x 4.4 cm in size. IMPRESSION: 1. Study limited due to lack of intravenous contrast. 2. No findings of bowel obstruction or colitis. 3. Question mild gastritis. 4. Extensive abnormality of both hip joints as above. 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 Please see above for full details. Rheumatoid arthritis should be considered as a potential etiology. This document has been electronically signed by: Octavio Bustillos MD on 06/06/2025 07:26:06 Dictated By: Octavio Bustillos MD Signed By: <Electronically signed by Octavio Bustillos MD in OV> 06/06/25725 DD/ 5 TD/TT: 06/06/25725 Public Transit Bus Driver: [facility] External Provider IMG CT PROCEDURES Final Result * POCT HGB A1C (04/07/2024 9:55 AM EDT) Hemoglobin A1C 5.3 4.0 - 6.0 % QC Media Lot # [id number] Lot# Expiration Date Blood 04/07/2024 9:55 AM EDT Ryder Monique MD POINT OF CARE TEST [...] factors. LDL-C is now calculated using the Diego-Patton calculation, which is a validated novel method providing better accuracy than the Friedewald equation in the estimation of LDL-C. Diego SS et al. GABI. 2013;310(19): 6955-0370 (http://education.Theranos.com/faq/DPV151) Non-HDL Cholesterol 93 <130 mg/dL (calc) [facility] Comment: For patients with diabetes plus 1 major ASCVD risk factor, treating to a non-HDL-C goal of <100 mg/dL (LDL-C of <70 mg/dL) is considered a therapeutic option. Triglycerides 114 <150 mg/dL [facility] 05/26/2022 10:2 8 AM EDT us Ryder Monique MD LAB BLOOD ORDERABLES Final Resul t [facility] [address] * 3D BILATERAL DIAGN MAMMO 1 [...] PM EST Recommended 10 year follow up Historical Provider HEALTH MAINTENANCE Final Result from Last 3 Months or Most Recently Relevant to Health Maintenance Insurance [facility] SKILLED NURSING OPTIONS (O D-SNP) [facility] Advance Directives Documents on File Type Date Recorded Patient Utility Repairer Expl anation Advance Directives and Living Will 03/09/2024 9:02 AM HCP Form (Agent Paco Montelongo) Care Teams Garment Finisher Relationship Specialty Start Date End Date Name, MD Ryder [address] [place] [address] PCP - General Family Medicine 12/25/15 [facility] 02/09/24
--- OUTSIDE RECORDS SUMMARY | 2025-06-15 03:27 | XMS_ITS | Encounter Summary ---
Author Organization [employer] Address [address] [facility] [address] 7t [place] [address] Care Team Providers Care Electroplating Laborer Name Role Phone Name, Ryder HARTLEY Primary Care Provider [phone] Reason for Visit * Reason Onset Date Comments Hospital Follow-up 06/04/2023 Encounter Details Date Type Department Care Team ([facility] st Contact Info) Description 06/04/2023 Telephone [facility] MEDICINE 230 [place], [place] [phone] Name, MD Ryder [address] [place] [address] Hospital Follow-up Social History Tobacco Use Types [...] 11:28 AM EDT [facility]c [facility]. Pt was seen at [facility] and admitted on 05/29 for diabetes and hyponatremia. Pt will be discharged on 06/04. Any questions, please contact inge at [phone]. For scheduling, please contact pt at [phone] documented in this encounter Plan of Treatment Upcoming Encounters Date Type Department Care Team (Late st Contact Info) Description 07/30/2025 10:15 AM EST Office Visit [facility] MEDICINE [address] [place] [address] Name, MD Ryder [address] [place] [address] documented as of this encounter Visit Diagnoses Not on filedocumented in this encounter Care Teams Electroplating Laborer Relationship Specialty Start Date End Date Name, MD Ryder [address] [place] [phone] PCP - General Family Medicine 12/25/[address] [facility] 02/09/24 documented as of this encounter
--- OUTSIDE RECORDS SUMMARY | 2025-06-15 03:27 | XMS_ITS | Encounter Summary ---
Author Organization [employer] Address [address] [facility] [address]t [place] [address] Care Team Providers Care Matrix Plater Name Role Phone Name, Ryder HARTLEY Primary Care Provider [phone] Encounter Details Date Type Department Care Team ([facility] st Contact Info) Description 12/06/2024 Telephone [facility] MEDICINE 230 [place], [place] [phone] Name, MD Ryder [address] [place] [address] Social History Tobacco Use Types Packs/Day Years [...] - 12/06/2024 10:37 AM EDT Tc joseluis Vrea from [facility] calling to report pt was discharge from [facility] against medical advice. Pt was taken by daughter or spouse. [facility] Discourse protection and [employer] police has been notified. Please call phone # [phone] ext [phone] for additional information documented in this encounter Plan of Treatment Upcoming Encounters Date Type Department Care Team (Late st Contact Info) Description 07/30/2025 10:15 AM EST Office Visit [facility] MEDICINE [address] [place] [address] Name, MD Ryder [address] [place] [address] documented as of this encounter Visit Diagnoses Not on filedocumented in this encounter Additional Health Concerns Assessment Noted Time PHQ-9 Depression Total Score: 13 024 11:35 AM EDT documented as of this encounter Care Teams Matrix Plater Relationship Specialty Start Date End Date NameRyder MD [address] [place] [phone] PCP - General Family Medicine 12/25/15 [facility] 02/09/24 documented as of this encounter
--- OUTSIDE RECORDS SUMMARY | 2025-06-15 03:27 | XMS_ITS | Encounter Summary ---
Author Organization [employer] Address [address] [facility] 7t [place] [address] Care Team Providers Care Electrician Underground Name Role Phone Name, Ryder HARTLEY Primary Care Provider Encounter Details Date Type Department Care Team (Late st Contact Info) Description 05/25/2023 Telephone [facility] [address] [place] [address] Vivien Gay RN 230 [place] [address] Social History Tobacco Use Types Packs/Day Years [...] try to get pt to go to [facility] mei but if he is unable, to return call to office to call for ambulance transport. * Telephone Encounter - Ryder Monique MD - 05/25/2023 2:46 PM EDT Please call the patient, she has severe hyponatremia at 116. I recommend she goes to [facility] ER now fortreatment, she will need IV saline solution * Telephone Encounter - Vivien Gay RN - 05/25/2023 2:39 PM EDT Received call from [facility] Chemistry lab regarding a critical lab result. [...] Description 07/30/2025 10:15 AM EST Office Visit [facility] [address] [place] [address] Name, MD Ryder [address] [place] [address] documented as of this encounter Visit Diagnoses Not on filedocumented in this encounter Care Teams Electrician Underground Relationship Specialty Start Date End Date NameRyder MD [address] [place] [address] PCP - General Family Medicine 12/25/15 [facility] 02/09/24 documented as of this encounter
--- OUTSIDE RECORDS SUMMARY | 2025-06-15 03:27 | XMS_ITS | Encounter Summary ---
Author Organization [employer] Address [address] [facility] [address] 7t [place] [address] Care Team Providers Care Metal Moulder Name Role Phone Name, Ryder HARTLEY Primary Care Provider [phone] Encounter Details Date Type Department Care Team (Late st Contact Info) Description 10/08/2023 Telephone [facility]INE 230 [place], [place] [phone] Name, MD Ryder 230 [place] [address] Social History Tobacco Use Types Packs/Day Years [...] Description 07/30/2025 10:15 AM EST Office Visit [facility] [address] [place] [address] Name, MD Ryder [address] [place] [address] documented as of this encounter Visit Diagnoses Not on filedocumented in this encounter Care Teams Metal Moulder Relationship Specialty Start Date End Date Name, MD Ryder [address] [place] [address] PCP - General Family Medicine 12/25/15 02/09/24 documented as of this encounter
--- OUTSIDE RECORDS SUMMARY | 2025-06-15 03:27 | XMS_ITS | Encounter Summary ---
Author Organization [employer] Address 75 [facility] 7t [place] [address] Care Team Providers Care Merit System Director Name Role Phone Name, Ryder HARTLEY Primary Care Provider [phone] Reason for Visit * Reason Comments Med Refill Encounter Details Date Type Department Care Team ([facility] Contact Info) Description 04/20/2023 Refill [facility] MEDICINE [address] [place] [phone] Ryder Monique MD [address] [place] [address] Chronic obstructive pulmonary disease, unspecified (CMS/HCC) Social [...] Upcoming Encounters Date Type Department Care Team ([facility] Contact Info) Description 07/30/2025 10:15 AM EST Office Visit [facility] MEDICINE [address] [place] [address] [phone] Name, MD Ryder 230 [place] [address] documented as of this encounter Visit Diagnoses Diagnosis Chronic obstructive pulmonary disease, unspecified (CMS/HCC) documented in this encounter Care Teams Merit System Director Relationship Specialty Start Date End Date Name, MD Ryder 230 [place] [address] PCP - General Family Medicine 12/25/15 [facility] 02/09/24 documented as of this encounter
--- NOTE | 2025-06-15 05:06 | ED.GENADULT ---
HPI - General Adult General Chief complaint: General Medical Stated complaint: ATTACKED Time Seen by Provider: 06/15/25 04:27 Source: patient Mode of arrival: ambulatory Limitations: language barrier History of Present Illness ED Provider: Dr. Simmons HPI narrative: 70-year-old female presented hospital today for evaluation. Patient is unsure why she was sent name. Patient stated that she got into argument with her . And her called 911. She has no medical complaint at this time. Related Data Home Medications ?Medication ?Instructions ?Recorded ?Confirmed albuterol sulfate 90 mcg/actuation 2 puff inhalation Q4H PRN 11/26/22 09/05/24 aerosol inhaler (Ventolin HFA) Shortness Of Breath Or Wheezing aspirin 81 mg tablet,delayed 1 tab PO DAILY 11/26/22 09/05/24 release metoprolol succinate 25 mg 1 tab PO DAILY 11/26/22 09/05/24 tablet,extended release 24 hr montelukast 10 mg tablet 1 tab PO BEDTIME 11/26/22 09/05/24 pravastatin 20 mg tablet 1 tab PO BEDTIME 11/26/22 09/05/24 trazodone 50 mg tablet 1 tab PO BEDTIME PRN insomnia 11/26/22 09/05/24 fluticasone 250 mcg-salmeterol 50 1 inh inhalation BID 01/31/23 09/05/24 mcg/dose blistr powdr for inhalation (Advair Diskus) ondansetron HCl 4 mg tablet 4 mg PO BID PRN nausea 01/31/23 09/05/24 acamprosate 333 mg tablet,delayed 666 mg PO TID 05/25/23 09/05/24 release albuterol sulfate 2.5 mg/3 mL 2.5 mg inhalation Q4H PRN Wheezing 05/25/23 09/05/24 (0.083 %) solution for nebulization omeprazole 40 mg capsule,delayed 40 mg PO DAILY@0630 06/19/24 09/05/24 release acetaminophen 650 mg 650 mg PO Q8H 08/05/24 09/05/24 tablet,extended release ferrous sulfate 325 mg (65 mg 325 mg PO DAILY 08/05/24 09/05/24 iron) tablet,delayed release Previous Rx's ?Medication ?Instructions ?Recorded baclofen 20 mg tablet 20 mg PO DAILY PRN Back Pain 30 04/29/22 days #30 tabs multivitamin (Daily-Cony tablet) 1 tab PO DAILY 30 days #30 tabs 04/29/22 Allergies Allergy/AdvReac Type Severity Reaction Status Date / Time fluticasone (From Advair Allergy Unknown Verified 06/15/25 03:12 Diskus) salmeterol (From Advair Allergy Unknown Verified 06/15/25 03:12 Diskus) paroxetine (From Paxil) AdvReac Intermediate Nausea and Verified 06/15/25 03:12 Vomiting Review of Systems Review of Systems: Pertinent review of systems as mentioned in HPI. All other system otherwise negative. [facility] Past Medical History [facility] Narrative: Medical history as mentioned in HPI Medical History Bipolar 1 disorder COPD (chronic obstructive pulmonary disease) Effusion of shoulder joint, left Mass of joint of left shoulder Cannabis use disorder, moderate, dependence Dementia Korsakoff disease Chronic hyponatremia Schizophrenia Congestive heart failure Osteoarthritis COPD (chronic obstructive pulmonary disease) Hypertension Diabetes Coronary artery disease Sleep apnea Alcohol use disorder Surgical History Hx of appendectomy Family History Family History Sister Breast cancer, Onset Age: 40 Sister Breast cancer, Onset Age: 50 Social History Social History Household Members: Spouse Household Members Other:: 2 Housing: Unknown / Unable to assess Do you presently have visiting nurse or other home services: Yes Unable to assess alcohol history related to: Unknown Alcohol intake: current Alcohol intake frequency: a few times a month Alcohol type: beer Comment: 1:1 at bedside Patient Tobacco Use Status: Tobacco use Unknown Tobacco use type: Cigarette Cigarette Packs Per Day: 0.5 Cigarettes Per Day: 10.0 Years Smoked: 53 e-Cigarette/Vaping Use: Never Used Second Hand Smoke Exposure: No Substance Use Type: Marijuana Advance Directives: Yes Advance Directives on File: Yes Advance Directives Date on File: 10/10/20 service: No Current occupational status: unemployed, disabled and other Sexual orientation: Straight/Heterosexual Physical Exam ED Exam Exam: General: Pleasant, no distress, interacting appropriately Head: Normacephalic, atraumatic ENT: oral mucosa moist, neck supple, no tracheal deviation Cardiovascular: regular rate, regular rhythm, systolic murmur appreciated on exam Respiratory: CTAB, no wheeze, rales, rhonchi Gastrointestinal: Soft, non distended, non tender, non guarding Extremities: No limb pain or swelling, no calf tenderness Neurological: Awake and alert, no facial droop noted Skin: Warm and dry Psychiatric: Appropriate mood and thoughts Vital Signs: Vital Signs - 24 hr 06/15/25 03:10 06/15/25 05:59 Temperature 96.9 F 98.6 F Pulse Rate 72 90 Respiratory Rate 16 20 Blood Pressure 100/53 L 105/61 Pulse Oximetry 97 95 Oxygen Delivery Method Room Air Room Air BMI result Body Mass Index 21.4 Medical Decision Making Medical Decision Making [facility] Narrative: This is a 70-year-old female presented hospital today for evaluation after getting into an argument with her . On my assessment with in-person top screw. Patient has no medical complaint. Patient stated that she was just wants to dance. Patient isn't alert and oriented x4. She denies any alcohol use last night. Denies any dysuria At this time patient appears to be stable does not appear to be in acute distress. Patient appeared to be very cheerful. Patient will be discharged back home. Differential Diagnosis Differential Diagnoses: The differential diagnosis associated with the presentation includes Alcohol intoxication, altered mentation Discharge Plan Discharge Clinical Impression: Encounter for medical screening examination Patient Disposition: Home, Self-Care Prescriptions: No Action multivitamin [Daily-Cony] Tablet 1 tab PO DAILY 30 Days Qty: 30 0RF Rx Instructions: With Food baclofen 20 mg Tablet 20 mg PO DAILY PRN (Reason: Back Pain) 30 Days Qty: 30 0RF trazodone 50 mg tablet 1 tab PO BEDTIME PRN (Reason: insomnia) montelukast 10 mg tablet 1 tab PO BEDTIME pravastatin 20 mg tablet 1 tab PO BEDTIME metoprolol succinate 25 mg tablet extended release 24 hr 1 tab PO DAILY albuterol sulfate [Ventolin HFA] 90 mcg/actuation HFA aerosol inhaler 2 puff INHALATION Q4H PRN (Reason: Shortness Of Breath Or Wheezing) aspirin 81 mg tablet,delayed release (DR/EC) 1 tab PO DAILY fluticasone propion-salmeterol [Advair Diskus] 250-50 mcg/dose blister with device 1 inh INHALATION BID ondansetron HCl 4 mg tablet 4 mg PO BID PRN (Reason: nausea) omeprazole 40 mg capsule,delayed release(DR/EC) 40 mg PO DAILY@0630 acetaminophen 650 mg tablet extended release 650 mg PO Q8H ferrous sulfate 325 mg (65 mg iron) tablet,delayed release (DR/EC) 325 mg PO DAILY albuterol sulfate 2.5 mg /3 mL (0.083 %) solution for nebulization 2.5 mg inhalation Q4H PRN (Reason: Wheezing) acamprosate 333 mg tablet,delayed release (DR/EC) 666 mg PO TID Print Language: Cuban
[2025-06-15 05:59] VITALS: BP 105/61; PULSE 90; RESP 20; TEMP 37; O2SAT 95
[2025-06-15 07:34] VITALS: BP 105/61; PULSE 90; RESP 20; TEMP 37; O2SAT 95
== END 2025-06-15 07:34 | disposition home or self-care (01) ==
PROVIDERS: Emergency Provider Student in an Organized Health Care Education/Training Program; PCP Internal Medicine Geriatric Medicine
DX: R45.6 Violent behavior (principal); Z79.899 Other long term (current) drug therapy
CPT/HCPCS: 99283

== ENCOUNTER 2025-06-28 12:57 | Emergency (ER) | payer OTHER, SELFPAY ==
--- NOTE | ~2025-06-28 | CT_ITS ---
CLINICAL HISTORY: left hip pain CT pelvis without contrast Comparison: CR - XR HIP LT W PEL1V - 06/28/25 17:[address]/SR - ABDOMEN ABD_PEL_WITHOUT (ADULT) - 06/06/25 06:14 EDT Findings: Fat containing umbilical hernia. Colonic diverticulosis. 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 Bilateral acetabula protrusio deformity. Interval progressive axial migration of the left femoral head and neck through the acetabulum, protruding 1.1 cm into the posterior superior pelvis. New left medial acetabular rim fractures at this level best seen on axial series 2, image 76. Ill-defined lucencies noted along the left transcervical neck of the femur series 2, image 77 and series 6, image 129, may reflect additional sites of fracture. Similar heterogeneous/loculated bilateral presumed joint effusions of the hips, in the left appears increased in size for example on coronal measuring 6.6 x 3.5 cm. There is diffuse inflammatory changes throughout the left hip with soft tissue edema and stranding. IMPRESSION: Severe, erosive bilateral inflammatory hip arthropathy, with progressive axial migration of the left femoral head and associated hip fractures described. Clinical correlation and if indicated follow-up MRI may be helpful. This document has been electronically signed by: Alex Mason MD on 06/28/2025 20:15:55
--- NOTE | ~2025-06-28 | CT_ITS ---
CLINICAL HISTORY: trauma CT head without contrast Comparison: CT/SR - CT HEAD WITHOUT IV CONTRAST - 03/09/24 21:59 EDT Findings: Scattered subcortical and periventricular hypoattenuation, likely in keeping with chronic small vessel ischemic disease. Parenchymal volume loss with compensatory prominence of the ventricles and CSF spaces. No acute territorial infarction, intracranial hemorrhage, midline shift or hydrocephalus. Empty sella is demonstrated, nonspecific. Right mastoid and middle ear effusion. The orbits are within normal limits. No skull fracture. IMPRESSION: 1. No acute intracranial abnormality. 2. Additional findings as described. This document has been electronically signed by: Alex Mason MD on 06/28/2025 18:16:56
--- NOTE | ~2025-06-28 | XR_ITS ---
CLINICAL HISTORY: trauma 4 view, pelvis and left hip Comparison: CT/SR - ABDOMEN ABD_PEL_WITHOUT (ADULT) - 06/06/25 06:14 EDT Findings: Redemonstrated severe bilateral hip osteoarthritis with axial migration of the femoral heads, on the left with new axial migration through the pelvis, with erosive changes and bony deformities. An acute left femoral neck or acetabular fracture can not be entirely excluded. Diffuse soft tissue swelling. IMPRESSION: 1. 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 2. New axial migration left femoral head through the pelvis. Acute left hip fractures not excluded. This document has been electronically signed by: Alex Mason MD on 06/28/2025 18:31:22
--- NOTE | ~2025-06-28 | CT_ITS ---
CLINICAL HISTORY: trauma CT cervical spine without contrast Comparison: CT/REG/SR - CT CERVICAL SPINE WO IV CON - 03/09/24 21:59 EDT Findings: Straightening of the cervical lordosis. Osteopenia. Multilevel spondylosis with osteophytosis, uncovertebral hypertrophy, facet arthropathy and degenerative disc disease. Ankylosis along the posterior elements in the left C2-C3. Anterolisthesis at C3-C4 and C7-T1. Cervical diffuse idiopathic skeletal hyperostosis. Diffuse spinal canal narrowing, for example moderate to severe at C4-C5 and C5-C6 with severe bilateral foraminal stenoses. No acute fractures or dislocations. Soft tissues of the neck are normal. Minimal emphysema. IMPRESSION: No acute findings. Additional findings as described. This document has been electronically signed by: Alex Mason MD on 06/28/2025 18:18:47
[2025-06-28 13:33] VITALS: BP 80/50; PULSE 96; O2SAT 98; BMI 21.9
[2025-06-28 13:51] VITALS: BP 114/75; PULSE 72; RESP 22; TEMP 36.4; O2SAT 93
--- NOTE | 2025-06-28 14:39 | MHC.CM.ED ---
Addendum entered by Risa Lozano 06/28/25 15:29: Patient has open case with Ancelmo at [facility]. Ancelmo made aware of ER visit via telephone at [phone] ext [phone]. Original Note: Received telephone call from patient's sig other, Juanjo. Juanjo states needs LTC and isn't safe to be home. T/W reminded Juanjo LTC was found for patient last night she was in ER and patient was removed from facility in [place]. Juanjo verifies he did sign her out and take her home but again claims not to be able to care for her. Juanjo understands facility can be in [place] again. [facility] aware. Continue to monitor for d/c needs.
[2025-06-28 15:38] LABS: MANUAL DIFF FLAG NO
[2025-06-28 15:42] LABS: Hematocrit 25.3 % (37.0-47.0); Hemoglobin 8.7 g/dl (12.0-16.0); Imm Gran Abs Auto 0.20 X10*3/uL (0.00-0.03); Imm Gran Pct Auto 3.3 % (0.0-0.4); Lymphocytes Absolute Auto 1.4 X10*3/uL (1.2-4.9); Mean Corpuscular HGB Conc 34.4 g/dl (31.0-35.0); Mean Corpuscular Hemoglobin 28.9 pg (27.0-33.0); Mean Corpuscular Volume 84.1 fL (80.0-98.0); NRBC Abs Auto 0.000 X10*3/uL (0.0-0.012); NRBC Pct Auto 0.0 /100WBC (0.0-0.2); Platelet Count 331 X10*3/uL (160-400); Red Blood Count 3.01 X10*6/uL (4.20-5.50); White Blood Count 6.1 X10*3/uL (4.8-10.8)
[2025-06-28 15:52] LABS: Anion Gap 9 (12-20); Blood Urea Nitrogen 24 mg/dL (9-16); Calcium 8.9 mg/dL (8.4-10.2); Carbon Dioxide 25 mmol/L (22-29); Chloride 105 mmol/L (96-108); Creatinine Clr Calc Pharmacy 33.7; Estimated Glomerular Filt Rate 45; Potassium 4.7 mmol/L (3.3-5.1); Sodium 134 mmol/L (135-145)
--- OUTSIDE RECORDS SUMMARY | 2025-06-28 15:58 | XMS_ITS | Encounter Summary ---
Author Organization [employer] Address [address] [facility] [address] [place] [address] Care Team Providers Care Remote Computer Terminal Operator Name Role Phone Name, Ryder HARTLEY Primary Care Provider [phone] Encounter Details Date Type Department Care Team (Late st Contact Info) Description 10/08/2023 Telephone [facility] MEDICINE [address] [place], [place] [phone] Name, MD Ryder 230 [place] [address] Social History Tobacco Use Types Packs/Day Years [...] Description 07/30/2025 10:15 AM EST Office Visit [facility] MEDICINE [address] [place] [address] Name, MD Ryder [address] [place] [address] documented as of this encounter Visit Diagnoses Not on filedocumented in this encounter Care Teams Remote Computer Terminal Operator Relationship Specialty Start Date End Date Name, MD Ryder [address] [place] [address] PCP - General Family Medicine 12/25/15 [facility] 02/09/24 documented as of this encounter
--- OUTSIDE RECORDS SUMMARY | 2025-06-28 15:58 | XMS_ITS | Encounter Summary ---
Author Organization [employer] Address 75 [facility] 7t [place] [address] Care Team Providers Care Financial Agent Name Role Phone Name, Ryder HARTLEY Primary Care Provider [phone] Reason for Visit * Reason Onset Date Comments Hospital Follow-up 06/04/2023 Encounter Details Date Type Department Care Team ([facility] st Contact Info) Description 06/04/2023 Telephone [facility] MEDICINE 230 [place], [place] [phone] Name, MD Ryder 230 [place] [address] Hospital Follow-up Social History Tobacco Use Types [...] 11:28 AM EDT [facility]. Pt was seen at [facility] and admitted on 05/29 for diabetes and hyponatremia. Pt will be discharged on 06/04. Any questions, please contact inge at [phone]. For scheduling, please contact pt at [phone] documented in this encounter Plan of Treatment Upcoming Encounters Date Type Department Care Team (Late st Contact Info) Description 07/30/2025 10:15 AM EST Office Visit [facility] MEDICINE [address] [place] [address] Name, MD Ryder [address] [place] [address] documented as of this encounter Visit Diagnoses Not on filedocumented in this encounter Care Teams Financial Agent Relationship Specialty Start Date End Date Name, MD Ryder [address] [place] [address] PCP - General Family Medicine 12/25/15 [facility] 02/09/24 documented as of this encounter
--- OUTSIDE RECORDS SUMMARY | 2025-06-28 15:58 | XMS_ITS | Encounter Summary ---
Author Organization [employer] Address [address] [facility] [address] 7[address] [place] [address] Care Team Providers Care Charter Pilot Name Role Phone Name, Ryder HARTLEY Primary Care Provider [phone] Reason for Visit * Reason Onset Date Comments Reschedule 10/08/2023 Encounter Details Date Type Department Care Team ([facility] Contact Info) Description 10/08/2023 Telephone [facility] 230 [place] [address] Name, MD Ryder [address] [place] [address] Reschedule Social History Tobacco Use Types Packs/Day [...] Tc from samantha requesting to r/s 10/04 [facility] appointment. Please contact samantha at [phone] (Japanese) documented in this encounter Plan of Treatment Upcoming Encounters Date Type Department Care Team (Late st Contact Info) Description 07/30/2025 10:15 AM EST Office Visit [facility] [address] [place] [address] Name, MD Ryder [address] [place] [address] documented as of this encounter Visit Diagnoses Not on filedocumented in this encounter Care Teams Charter Pilot Relationship Specialty Start Date End Date NameRyder MD 230 [place] [address] PCP - General Family Medicine 12/25/15 [facility] 02/09/24 documented as of this encounter
--- OUTSIDE RECORDS SUMMARY | 2025-06-28 15:58 | XMS_ITS | Encounter Summary ---
Author Organization [employer] Address [address] [facility] [address] 7t [place] [address] Care Team Providers Care Student Counselor Name Role Phone Name, Ryder HARTLEY Primary Care Provider [phone] Reason for Visit * Reason Comments Med Refill Encounter Details Date Type Department Care Team ([facility] Contact Info) Description 01/13/2025 Refill [facility] MEDICINE 230 [place], [place] [phone] Name, MD Ryder [address] [place] [address] Social History Tobacco Use Types Packs/Day Years [...] 07/30/2025 10:15 AM EST Office Visit [facility] MEDICINE [address] [place] [address] Name, MD Ryder 230 [place] [address] documented as of this encounter Visit Diagnoses Not on filedocumented in this encounter Additional Health Concerns Assessment Noted Time PHQ-9 Depression Total Score: 13 024 11:35 AM EDT documented as of this encounter Care Teams Student Counselor Relationship Specialty Start Date End Date NameRyder MD [address] [place] [address] PCP - General Family Medicine 12/25/15 [facility] 02/09/24 documented as of this encounter
--- OUTSIDE RECORDS SUMMARY | 2025-06-28 15:58 | XMS_ITS | Encounter Summary ---
Author Organization [employer] Address [address] [facility] [address] 7[address] [place] [address] Care Team Providers Care Machine Hostler Name Role Phone Name, Ryder HARTLEY Primary Care Provider [phone] Reason for Visit * Reason Onset Date Comments FYI 08/24/2023 Encounter Details Date Type Department Care Team ([facility] Contact Info) Description 08/24/2023 Telephone [facility] MEDICINE 230 [place] [address] Name, MD Ryder 230 [place] [address] FYI Social History Tobacco Use Types Packs/Day [...] the past 12 months, has t he [employer], [employer], oil or water company threatened to shut [...] RN - 08/24/2023 3:08 PM EST Noted. [facility] progress note printed, reviewed by pcp and sent to [facility]. * Telephone Encounter - Yisel Ceron - 08/24/2023 9:12 AM EST Tc from samantha calling to advise PCP pt is currently admitted at [facility] and will not be discharged dueto her conditions. Any questions/clarification, please contact samantha at [phone] (Portuguese) documented in this encounter Plan of Treatment Upcoming Encounters Date Type Department Care Team (Late st Contact Info) Description 07/30/2025 10:15 AM EST Office Visit [facility] MEDICINE [address] [place] [address] Name, MD Ryder 230 [place] [address] documented as of this encounter Visit Diagnoses Not on filedocumented in this encounter Care Teams Machine Hostler Relationship Specialty Start Date End Date Name, MD Ryder [address] [place] [address] PCP - General Family Medicine 12/25/[address] [facility] 02/09/24 documented as of this encounter
--- OUTSIDE RECORDS SUMMARY | 2025-06-28 15:58 | XMS_ITS | Encounter Summary ---
Author Organization [employer] Address [address] [facility] [address] 7t [place] [address] Care Team Providers Care Editorial Manager Name Role Phone Name, Ryder HARTLEY Primary Care Provider Encounter Details Date Type Department Care Team (Late st Contact Info) Description 05/25/2023 Telephone [facility] MEDICINE 230 [place] [address] Vivien Gay RN [address] [place] [address] Social History Tobacco Use Types Packs/Day Years [...] try to get pt to go to [facility] mei but if he is unable, to return call to office to call for ambulance transport. * Telephone Encounter - Ryder Monique MD - 05/25/2023 2:46 PM EDT Please call the patient, she has severe hyponatremia at 116. I recommend she goes to [facility] ER now fortreatment, she will need IV saline solution * Telephone Encounter - Vivien Gay RN - 05/25/2023 2:39 PM EDT Received call from [facility] Chemistry lab regarding a critical lab result. [...] Description 07/30/2025 10:15 AM EST Office Visit [facility] MEDICINE [address] [place] [address] Name, MD Ryder [address] [place] [address] documented as of this encounter Visit Diagnoses Not on filedocumented in this encounter Care Teams Editorial Manager Relationship Specialty Start Date End Date NameRyder MD [address] [place] [address] PCP - General Family Medicine 12/25/15 [facility] 02/09/24 documented as of this encounter
--- OUTSIDE RECORDS SUMMARY | 2025-06-28 15:58 | XMS_ITS | Encounter Summary ---
Author Organization [employer] Address [address] [facility] [address] [place] [address] Care Team Providers Care Telephonic Rn Name Role Phone Name, Ryder HARTLEY Primary Care Provider [phone] Reason for Visit * Reason Onset Date Comments Med Refill 11/24/2023 Encounter Details Date Type Department Care Team ([facility] st Contact Info) Description 11/24/2023 Refill [facility] MEDICINE 230 [place], [place] [phone] Name, MD Ryder [address] [place] [address] Social History Tobacco Use Types Packs/Day Years [...] 50 MG tablet To be sent to: [facility] [place], [place] - [address] [place] [address] documented in this encounter Plan of Treatment Upcoming Encounters Date Type Department Care Team (Late st Contact Info) Description 07/30/2025 10:15 AM EST Office Visit [facility] MEDICINE [address] [place] [address] NameRyder MD [address] [place] [address] documented as of this encounter Visit Diagnoses Not on filedocumented in this encounter Care Teams Telephonic Rn Relationship Specialty Start Date End Date Ryder Monique MD [address] [place] [address] PCP - General Family Medicine 12/25/15 [facility] 02/09/24 documented as of this encounter
--- OUTSIDE RECORDS SUMMARY | 2025-06-28 15:58 | XMS_ITS | Encounter Summary ---
Author Organization [employer] Address 75 [facility] 7t [place] [address] Care Team Providers Care Rivet Driver Name Role Phone Name, Ryder HARTLEY Primary Care Provider [phone] Reason for Visit * Reason Comments Med Refill Encounter Details Date Type Department Care Team ([facility] Contact Info) Description 04/20/2023 Refill [facility] MEDICINE [address] [place] [address] Ryder Monique MD [address] [place] [address] Chronic obstructive pulmonary disease, unspecified (CMS/HCC) Social [...] Upcoming Encounters Date Type Department Care Team ([facility] Contact Info) Description 07/30/2025 10:15 AM EST Office Visit [facility] MEDICINE [address] [place] [address] [phone] NameRyder MD 230 [place] [address] documented as of this encounter Visit Diagnoses Diagnosis Chronic obstructive pulmonary disease, unspecified (HCC) documented in this encounter Care Teams Rivet Driver Relationship Specialty Start Date End Date Name, [place] [address] PCP - General Family Medicine 12/25/15 [facility] 02/09/24 documented as of this encounter
--- OUTSIDE RECORDS SUMMARY | 2025-06-28 15:58 | XMS_ITS | Encounter Summary ---
Author Organization [employer] Address [address] 7t [place] [address] Care Team Providers Care Relations Coordinator Name Role Phone Name, Ryder HARTLEY Primary Care Provider [phone] Reason for Visit * Reason Comments Med Refill Encounter Details Date Type Department Care Team ([facility] Contact Info) Description 07/18/2023 Refill [facility] [address] [place] [address] Alison Rodriguez MD [address] [place], [place] [phone] Social History Tobacco Use Types Packs/Day Years [...] Description 07/30/2025 10:15 AM EST Office Visit [facility] [address] [place] [address] Name, MD Ryder [address] [place] [address] documented as of this encounter Visit Diagnoses Not on filedocumented in this encounter Care Teams Relations Coordinator Relationship Specialty Start Date End Date Name, MD Ryder [address] [place] [address] PCP - General Family Medicine 12/25/15 [facility] 02/09/24 documented as of this encounter
--- OUTSIDE RECORDS SUMMARY | 2025-06-28 15:59 | XMS_ITS | Clinical Summary ---
Author Organization [employer] Address [address] 7[address] [place] [address] Care Team Providers Care Childcare Aide Name Role Phone Name, Ryder HARTLEY Primary Care Provider [phone] Allergies Active Allergy Reactions Criticality Noted Date [...] NEEDED 90 mL 11 12/09/19 25 Active SPS, Sodium Polystyrene Sulf, 15 GM/60ML suspension Use as directed 10/16/19 25 Active levothyroxine (Synthroid, Levoxyl) 50 MCG tablet Take 1 tablet by mouth before breakfast. Active baclofen (Lioresal) 20 MG tablet TAKE [...] MOUTH EVERY DAY WITH FOOD 90 tablet 03/27/20 25 Active omeprazole (PriLOSEC) 40 MG [...] CHEW. 180 tablet 2 05/25/20 25 Active acetaminophen (Tylenol 8 Hour) 650 MG ER tabletIndications :Chronic pain of both shoulders TAKE 1 TABLET BY MOUTH EVERY 8 HOURS NEEDED FOR MODERATE PAIN, DO NOT BREAK, CRUSH, DISSOLVE OR CHEW 90 tablet 2 06/19/20 25 Active ondansetron (Zofran) 4 MG tablet TAKE 1 TABLET BY MOUTH TWICE DAILY NEEDED FOR NAUSEA 60 tablet 5 06/19/20 25 Active ondansetron (Zofran) 4 MG tablet Take 1 tablet by mouth every 12 (twelve) hours if needed. 10/27/19 25 025 Discontinued acetaminophen (Tylenol 8 Hour) 650 MG ER tabletIndications :Chronic pain of both shoulders TAKE 1 TABLET BY MOUTH EVERY 8 HOURS NEEDED FOR MODERATE PAIN, DO NOT BREAK, CRUSH, DISSOLVE OR CHEW 90 tablet 2 01/27/20 25 025 Discontinued Active Problems Problem Noted Date [...] Chronic hyponatremia 07/08/2023 Hyponatremia 07/08/2023 Substance abuse ([facility]/HCC) 07/08/2023 Schizophrenia 07/08/2023 Dementia ([facility]) 07/08/2023 Chronic pain of both shoulders 07/01/2023 [...] Sodium polysterene Alcohol use disorder, severe, dependence (CMS/HC C) 03/25/2023 Assessment & Plan (10/20/2023 3:05 PM EST): Drinking 1 beer/day, takes campral with no side effects. Counseled to quit ETOH, declined referral to AUD program. FU with PCP AMS (altered mental status) 03/25/2023 Cannabis use disorder, moderate, dependence (CMS /HCC) 03/25/2023 Assessment & Plan (10/20/2023 3:05 PM EST): Smokes 1 joint/d. 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 Chronic anemia 08/11/2022 Hypertrophic toenail 08/11/2022 Nausea and vomiting 08/11/2022 Assessment & Plan (10/20/2023 3:26 PM EST): Uncelar if related to medications, gastritis? Malignancy? EGD on 2018 Was normal and H/Pilory was treated. Will [...] disturbance, psychotic disturbance, mood disturbance, and anxiety (CMS/HCC) 07/08/2021 Cigarette smoker 02/18/2021 Non-cardiac chest pain [...] mellitus 11/08/2020 Stage 3a chronic kidney disease ([facility]) 2017 Urinary incontinence 03/21/2018 Assessment & Plan (10/20/2023 3:01 PM EST): Continue wearing pull ups Primary osteoarthritis of both knees 02/16/2018 Diabetic polyneuropathy 12/24/2017 Assessment & Plan (10/20/2023 2:55 PM EST): A1c is at goal, she can continue dietary management and fu with PCP in 3-4m Counseled about checking fgstks prn hypoglycemia sxs. Epigastric pain 12/24/2017 H. pylori infection 12/24/2017 Bipolar I disorder ([facility]) 12/23/2016 Type 2 diabetes mellitus with diabetic nephropat hy 12/23/2016 Chronic abdominal pain 07/23/2016 Edema 07/23/2016 Peripheral venous insufficiency 07/23/2016 Chronic obstructive pulmonar y disease with (acute) exacerbation ([facility]) 06/10/2016 Assessment & Plan (10/20/2023 3:17 PM [...] disease, unspecified 11/08/2020 12/03/2023 Bipolar disorder, unspecified ([facility]) 11/08/2020 06/17/2023 Lam hematuria 12/26/2018 10/20/2023 Gastrointestinal tube in situ ([facility]) 06/10/2016 10/20/2023 Osteoarthritis 01/21/2016 12/03/2023 Pain in limb 09/03/2011 12/03/2023 Encounters Date Type Department Care Team Description 06/16/2025 Refill [facility] [address] [place] [address] Name, MD Ryder Chronic pain of both shoulders 06/06/2025 Orders Only [facility] External Provider, [facility] 05/24/2025 Refill [facility] [address] [place], [place] [phone] Name, MD Ryder 05/22/2025 Telephone [facility] [address] [place], [place] [phone] Name, MD Ryder Durable Medical Equipment from Last 3 Months Immunizations Immunization Administration [...] 07/30/2025 10:15 AM EST Office Visit [facility] [address] [place] [address] Name, MD Ryder [address] [place] [address] Health Maintenance Due Date Last Done Comments [...] 2025 09/30/2021, 02/03/2021 Influenza Vaccine (#1) 2025 , 06/09/2022, 07/24/2021, Additional history exists DTaP/Tdap/Td Vaccines [...] EDT) Sodium 126(L) 135 - 145 mmol/L [facility] Potassium 4.0 3.3 - 5.1 mmol/L [facility] Chloride 97 96 - 108 mmol/L [facility] Carbon Dioxide 19(L) 22 - 29 mmol/L [facility] Anion Gap 14 12 - 20 [facility] Urea Nitrogen (BUN) 18(H) 9 - 16 mg/dL [facility] Creatinine, Serum 0.63 0.5 - 1.4 mg/dL [facility] Creatinine Clr Calc Pharmacy 82.7 [facility] Comment:Provided height and weight: 154.94 cm,90.718 kg.eGFR (calculated from the MDRD study equation) and eCrCl(calculated from the Cockcroft-Gault equation) are based ondifferent parameters and may not yield comparable results.If eCrCl result is absurd, please check patient'sheight/weight. Estimated Glomerular Filt Rate >60 [facility] Comment:Chronic Kidney Disea se: Estimated GFR < 60 mL/min/1.45n7Ffyywr Kidney Disease: Estimated GFR < 15 mL/min/1.73m2 Glucose 120(H) 60 - 115 mg/dL [facility] Calcium 8.3(L) 8.4 - 10.2 mg/dL [facility] Bilirubin, Total 0.4 0.0 - 1.0 mg/dL [facility] Aspartate Amino Transferase 19 5 - 31 U/L [facility] Alanine Aminotransferase <6 0 - 31 U/L [facility] Total Protein 6.5 6.5 - 8.0 g/dL [facility] Albumin Level 2.8(L) 3.5 - 5.0 g/dL [facility] Alkaline Phosphatase 103 39 - 117 U/L [facility] 06/06/2025 9:25 AM EDT 06/06/2025 9:29 AM EDT us Generic External Data Provider LAB BLOOD ORDERAB LES Final Result Performing Organization Address [facility] Co de Phone Number [facility] [address] [place] [phone] * OBSX1 (06/06/2025 7:42 AM EDT) OBS1 NEGATIVE NEGATIVE [facility] 06/06/2025 7:42 AM EDT 06/06/2025 7:44 AM EDT us Generic External Data Provider LAB BLOOD ORDERAB LES Final Result Performing Organization Address [facility] Phone Number [facility] [address] [place] [phone] * CT Abdomen Pelvis w/o Contrast (06/06/2025 7:26 AM EDT) Anatomical Region Laterality Modality Body, Pelvis, Abdomen Computed T omography 06/06/2025 7:26 AM EDT Narrative 06/06/2025 7:27 AM EDT [address] [address] [address] Scan Report Signed Patient: Belia Richardson Aye#: [id number] : 1955 Acct:[id number] Age/Sex: 70 / F ADM Date: 06/06/25 Loc: HO.ED Attending Dr: Ordering Physician: Seven Ross MD Date of Service: 06/06/25 Procedure(s): CT abdomen pelvis wo IV con Accession Number(s): [id number] cc: Seven Ross MD; Name,Ryder Report Number: [id number]: Total DLP = 440.00 mGy-cm Reason for Exam: ? constipation ? colitis CLINICAL HISTORY: ? constipation ? colitis CT abdomen and pelvis without contrast Comparison: CT/REG/[place]/SR - CT ABDOMEN PELVIS WITHOUT THEN WITH [...] throughout the colon. No findings of diverticulitis. Tbba-hj-cobxsnba stool throughout the colon. No dilated small [...] fluid seen medial to the acetabulum bilaterally, kyqa-qozeztz-ciyo-right. This was previously more pronounced on the [...] in OV> 06/06/25725 DD/ 5 TD/TT: 06/06/25725 Professor Of Nursing: Procedure Note Donotuseinterpreter, Image - 06/06/[address] [address] [address] Scan Report Signed Patient: Marcos Richardson R#: [id number] : 1955cct:[id number] Age/Sex: 70 / FADM Date: 06/06/25 Loc: .ED Attending Dr: Ordering Physician: Seven Ross MD Date of Service: 06/06/25 Procedure(s): CT abdomen pelvis wo IV con Accession Number(s): [id number] cc: Seven Ross MD; Name,Ryder HARTLEY Report Number: [id number]: Total DLP = 440.00 mGy-cm Reason for Exam: ? constipation ? colitis CLINICAL HISTORY: ? constipation ? colitis CT abdomen and pelvis without contrast Comparison: CT/REG/[place]/SR - CT ABDOMEN PELVIS WITHOUT THEN WITH [...] throughout the colon. No findings of diverticulitis. Nhwl-ll-bukturde stool throughout the colon. No dilated small [...] fluid seen medial to the acetabulum bilaterally, khmm-ucxdxoi-lhlo-right. This was previously more pronounced on the [...] in OV> 06/06/25725 DD/ 5 TD/TT: 06/06/25725 Professor Of Nursing: [facility] External Provider IMG CT PROCEDURES Final Result * POCT HGB A1C (04/07/2024 9:55 AM EDT) Pathologist [facility] Hemoglobin A1C 5.3 4.0 - 6.0 % [...] LDL-C. Diego MENDEZ et al. GABI. 2013;310(19): 6397-7267 (http://education.Locish/faq/AEH360) Non-HDL Cholesterol 93 <130 mg/dL (calc) [facility] Comment: For patients with diabetes plus 1 major ASCVD risk factor, treating to a non-HDL-C goal of <100 mg/dL (LDL-C of <70 mg/dL) is considered a therapeutic option. Triglycerides 114 <150 mg/dL [facility] 05/26/2022 10:2 8 AM EDT Ryder Monique MD LAB BLOOD ORDERABLES Final Resul t [facility] [address] * 3D BILATERAL DIAGN MAMMO 1 (10/09/2019 12:36 PM EST) Anatomical Region Laterality Modality Breast Bilateral Mammography 10/09/2019 12:3 6 PM EST Narrative 10/09/2019 12:37 PM EST Refer to the Notes tab for result details [facility] Procedure: 3D BILATERAL DIAGN MAMMO 1 Procedure Note ProviderLupe MD - 12/19/2022 Refer to the Notes tab for result details [facility] Procedure: 3D BILATERAL DIAGN MAMMO 1 Mairne Collins CNM IMG BI PROCEDURES Final R esult * Hm Colonoscopy (10/18/2017 12:01 PM EST) Colonoscopy Normal Normal Narrative Heather Schneider - 10/18/2017 12:01 PM EST Recommended 10 year follow up Historical Provider HEALTH MAINTENANCE Final Result from Last 3 Months or Most Recently Relevant to Health Maintenance Insurance [facility] [employer] OPT[employer] (HMO D-SNP) [facility] Advance Directives Documents on File Type Date Recorded Patient Environmental Remediation Specialist Expl anation Advance Directives and Living Will 03/09/2024 9:02 AM HCP Form (Agent Paco Montelongo) Care Teams Childcare Aide Relationship Specialty Start Date End Date Name, MD Ryder [address] [place] [address] PCP - General Family Medicine 12/25/15 [facility] Services 02/09/24
--- OUTSIDE RECORDS SUMMARY | 2025-06-28 15:59 | XMS_ITS | Encounter Summary ---
Author Organization [employer] Address [address] 7t [place] [address] Care Team Providers Care Exhibit Artist Name Role Phone Name, Ryder HARTLEY Primary Care Provider [phone] Reason for Visit * Reason Comments Med Refill Encounter Details Date Type Department Care Team ([facility] Contact Info) Description 04/16/2023 Refill [facility] [address] [place], [place] [phone] Name, MD Ryder [address] [place] [address] COPD exacerbation ([facility]) Social History Tobacco Use Types Packs/Day [...] Description 07/30/2025 10:15 AM EST Office Visit [facility] [address] [place] [address] Name, MD Ryder [address] [place] [address] documented as of this encounter Visit Diagnoses Diagnosis COPD exacerbation (CMS/HCC) (HCC) Obstructive chronic bronchitis with exacerbation documented in this encounter Care Teams Exhibit Artist Relationship Specialty Start Date End Date NameRyder MD [address] [place] [address] PCP - General Family Medicine 12/25/15 [facility] 02/09/24 documented as of this encounter
--- OUTSIDE RECORDS SUMMARY | 2025-06-28 15:59 | XMS_ITS | Encounter Summary ---
Author Organization [employer] Address [address] 7t [place] [address] Care Team Providers Care Customer Experience Associate Name Role Phone Name, Ryder HARTLEY Primary Care Provider [phone] Encounter Details Date Type Department Care Team ([facility] st Contact Info) Description 12/06/2024 Telephone [facility] [address] [place], [place] [phone] Name, MD Ryder [address] [place] [address] Social History Tobacco Use Types Packs/Day Years [...] 10:37 AM EDT Tc joseluis Vera from [facility] calling to report pt was discharge from [facility] against medical advice. Pt was taken by daughter or spouse. [facility] [employer] protection and [employer] police has been notified. Please call phone # [phone] ext [phone] for additional information documented in this encounter Plan of Treatment Upcoming Encounters Date Type Department Care Team (Late st Contact Info) Description 07/30/2025 10:15 AM EST Office Visit [facility] [address] [place] [address] Name, MD Ryder [address] [place] [address] documented as of this encounter Visit Diagnoses Not on filedocumented in this encounter Additional Health Concerns Assessment Noted Time PHQ-9 Depression Total Score: 13 024 11:35 AM EDT documented as of this encounter Care Teams Customer Experience Associate Relationship Specialty Start Date End Date NameRyder MD [address] [place] [address] PCP - General Family Medicine 12/25/15 [facility] 02/09/24 documented as of this encounter
--- OUTSIDE RECORDS SUMMARY | 2025-06-28 15:59 | XMS_ITS | Encounter Summary ---
Author Organization [employer] Address [address] [place] [address] Care Team Providers Care Notcher Name Role Phone Name, Ryder HARTLEY Primary Care Provider [phone] Encounter Details Date Type Department Care Team (Late st Contact Info) Description 08/27/2022 Abstract [facility] [address] [place] [address] Name, MD Ryder [address] [place] [address] Social History Tobacco Use Types Packs/Day Years [...] 10:15 AM EST Office Visit [facility] [address] [facility] [place] [address] Name, MD Ryder [address] [facility] [place] [address] documented as of this encounter Visit Diagnoses Not on filedocumented in this encounter Care Teams Notcher Relationship Specialty Start Date End Date Name, MD Ryder [facility] [place] [address] PCP - General Family Medicine 12/25/[address] [facility] Services 02/09/24 documented as of this encounter
--- OUTSIDE RECORDS SUMMARY | 2025-06-28 15:59 | XMS_ITS | Clinical Summary ---
Author Organization [facility] Address [address] [place] [address] Phone Care Team Providers Care Water Ski Assembler Name Role Phone Unavailable Primary Care Provider [...] age to complete this topic Insurance ([id number]) [place] [address] ([id number]) [place]TO[place] [id number]
--- OUTSIDE RECORDS SUMMARY | 2025-06-28 15:59 | XMS_ITS | Encounter Summary ---
Author Organization [employer] [facility] Address [address] 7t [place] [address] Care Team Providers Care Health Safety Specialist Name Role Phone Name, Ryder HARTLEY Primary Care Provider [phone] Encounter Details Date Type Department Care Team (Late Contact Info) Description 03/09/2023 Abstract [facility] [address] [place] [address] [phone] NameRyder MD [address] [place] [address] [phone] Social History Tobacco Use Types Packs/Day Years [...] Description 07/30/2025 10:15 AM EST Office Visit [facility] [address] [place] [address] [phone] NameRyder MD [address] [place] [address] [phone] documented as of this encounter Procedures Procedure [...] on filedocumented in this encounter Care Teams Health Safety Specialist Relationship Specialty Start Date End Date Name, MD Ryder [address] [place] [address] PCP - General Family Medicine 12/25/15 [facility] 02/09/24 documented as of this encounter
--- OUTSIDE RECORDS SUMMARY | 2025-06-28 15:59 | XMS_ITS | Encounter Summary ---
Author Organization [employer] Address [address] [facility] 7t [place] [address] Care Team Providers Care Inside Trucker Name Role Phone Name, Ryder HARTLEY Primary Care Provider [phone] Reason for Visit * Reason Onset Date Comments Appointment Request 12/29/2022 Encounter Details Date Type Department Care Team (Late Contact Info) Description 12/29/2022 Telephone [facility] [address] [place] [address] Name, MD Ryder [address] [place] [address] Appointment Request Social History Tobacco Use Types [...] pt is currently getting discharge from a detention. Please contact emory at [phone] documented in this encounter Plan of Treatment Upcoming Encounters Date Type Department Care Team (Late Contact Info) Description 07/30/2025 10:15 AM EST [facility] [address] Name, MD Ryder [facility] [address] documented as of this encounter Visit Diagnoses Not on filedocumented in this encounter Care Teams Inside Trucker Relationship Specialty Start Date End Date Name, MD Ryder [facility] [place] [address] PCP - General Family Medicine 12/25/[address] [facility] 02/09/24 documented as of this encounter
--- NOTE | 2025-06-28 16:38 | ED.GENADULT ---
HPI - General Adult General Chief complaint: Fall Stated complaint: UNWIT FALL,NO COMPLAINTS FROM HOME Time Seen by Provider: 06/28/25 16:03 Source: patient, RN notes reviewed and old records reviewed Mode of arrival: EMS Limitations: no limitations History of Present Illness ED Provider: Robyn HPI narrative: 70-year-old female with a past medical history significant for bipolar disorder, COPD, diabetes, dementia, alcohol use disorder presenting for evaluation after a fall. The patient lives with a significant other who is her legal healthcare proxy. The patient typically ambulates with a walker or using her wheelchair She reports that she tried to get to her walker today when she fell to the ground. She complains of the left hip pain that she attributes to chronic arthritis pain. She denies hitting her head or losing consciousness. Apparently the patient has significant another/healthcare proxy called our case management team and expressed concerns the patient is not safe at home. The patient is well known to this emergency department for similar visits of weakness and altercations with her significant other. She was recently placed in long-term care and then eventually left against medical advice Related Data Home Medications ?Medication ?Instructions ?Recorded ?Confirmed albuterol sulfate 90 mcg/actuation 2 puff inhalation Q4H PRN 11/26/22 06/29/25 aerosol inhaler (Ventolin HFA) Shortness Of Breath Or Wheezing aspirin 81 mg tablet,delayed 1 tab PO DAILY 11/26/22 06/29/25 release metoprolol succinate 25 mg 1 tab PO DAILY 11/26/22 06/29/25 tablet,extended release 24 hr montelukast 10 mg tablet 1 tab PO BEDTIME 11/26/22 06/29/25 pravastatin 20 mg tablet 1 tab PO BEDTIME 11/26/22 06/29/25 trazodone 50 mg tablet 1 tab PO BEDTIME PRN insomnia 11/26/22 06/29/25 fluticasone 250 mcg-salmeterol 50 1 inh inhalation BID 01/31/23 06/29/25 mcg/dose blistr powdr for inhalation (Advair Diskus) ondansetron HCl 4 mg tablet 4 mg PO BID PRN nausea 01/31/23 06/29/25 acamprosate 333 mg tablet,delayed 666 mg PO TID 05/25/23 06/29/25 release albuterol sulfate 2.5 mg/3 mL 2.5 mg inhalation Q4H PRN Wheezing 05/25/23 06/29/25 (0.083 %) solution for nebulization omeprazole 40 mg capsule,delayed 40 mg PO DAILY@0630 06/19/24 06/29/25 release acetaminophen 650 mg 650 mg PO Q8H 08/05/24 06/29/25 tablet,extended release ferrous sulfate 325 mg (65 mg 325 mg PO DAILY 08/05/24 06/29/25 iron) tablet,delayed release Previous Rx's ?Medication ?Instructions ?Recorded baclofen 20 mg tablet 20 mg PO DAILY PRN Back Pain 30 04/29/22 days #30 tabs multivitamin (Daily-Cony tablet) 1 tab PO DAILY 30 days #30 tabs 04/29/22 Allergies Allergy/AdvReac Type Severity Reaction Status Date / Time fluticasone (From Advair Allergy Unknown Verified 07/04/25 19:09 Diskus) salmeterol (From Advair Allergy Unknown Verified 07/04/25 19:09 Diskus) paroxetine (From Paxil) AdvReac Intermediate Nausea and Verified 07/04/25 19:09 Vomiting Review of Systems Constitutional: Constitutional: Denies body ache(s), Denies chills, Reports frequent falls and Denies headache(s) Eyes: Eyes: Denies blurry vision ENT: Denies vertigo, Denies dizziness and Denies headache(s) Cardiovascular: Cardiovascular: Denies chest pain and Denies dyspnea on exertion Respiratory: Respiratory: Denies cough and Denies dyspnea on exertion Gastrointestinal: Gastrointestinal: Denies abdominal pain and Denies nausea Musculoskeletal: Musculoskeletal: Denies back pain, Reports arthralgias, Denies joint swelling and Denies limited range of motion Integumentary/Breasts: Skin/Breast: Denies rash Neurologic: Denies vertigo, Denies dizziness, Reports frequent falls and Denies headache(s) Psychiatric: Psychiatric: Denies anxiety PMFSH Past Medical History Medical History Bipolar 1 disorder COPD (chronic obstructive pulmonary disease) Effusion of shoulder joint, left Mass of joint of left shoulder Cannabis use disorder, moderate, dependence Dementia Korsakoff disease Chronic hyponatremia Schizophrenia Congestive heart failure Osteoarthritis COPD (chronic obstructive pulmonary disease) Hypertension Diabetes Coronary artery disease Sleep apnea Alcohol use disorder Surgical History Hx of appendectomy Family History Family History Sister Breast cancer, Onset Age: 40 Sister Breast cancer, Onset Age: 50 Social History Social History Household Members: Spouse Household Members Other:: 2 Housing: Unknown / Unable to assess Do you presently have visiting nurse or other home services: Yes Alcohol intake: current Alcohol intake frequency: 3 or more drinks per day Alcohol type: beer Comment: 1:1 at bedside Patient Tobacco Use Status: Tobacco use Unknown Tobacco use type: Cigarette Cigarette Packs Per Day: 0.5 Cigarettes Per Day: 10.0 Years Smoked: 53 e-Cigarette/Vaping Use: Never Used Second Hand Smoke Exposure: No Substance Use Type: Marijuana Advance Directives Date on File: 10/10/20 service: No Current occupational status: unemployed, disabled and other Sexual orientation: Straight/Heterosexual Physical Exam ED Vital Signs: Vital Signs - 24 hr 07/03/25 14:00 07/03/25 20:24 07/04/25 06:00 Temperature 96.6 F L 98.0 F 97.3 F Pulse Rate 81 78 81 Respiratory Rate 16 18 18 Blood Pressure 102/70 137/57 L 147/72 H Pulse Oximetry 97 98 98 Oxygen Delivery Method Room Air Room Air Room Air BMI result Body Mass Index 21.9 Const General: healthy appearing, comfortable, no acute distress, alert and awake Nutritional Appearance: well nourished Orientation/consciousness: patient oriented x3 HENMT Head: Yes normocephalic and Yes atraumatic Eyes Eyelids: Yes eyelids normal Conjunctivae: conjunctivae normal Sclerae: sclerae normal Corneas: corneas normal Pupils: Equal, round and reactive pupils present EOM: EOMs intact bilaterally Neck Neck: Yes full ROM Resp Effort & Inspection: normal respiratory effort, able to speak in complete sentences and not labored Cardio Rate: regular rate Rhythm: regular rhythm GI Inspection: No distended Palpation (GI): Soft to palpation, not firm, nontender, no guarding and not rigid Skin General skin exam: elasticity normal Neuro General: patient oriented x3 Cranial nerves: Yes Equal, round and reactive pupils present and Yes Bilaterally intact EOM present Extrem Other: The patient has no tenderness with manipulation of the hips bilaterally but does have significant pain in the left hip when attempting to raise the left lower extremity off the bed Course Reevaluation(s) Reevaluation #1: Patient's x-ray showed significant arthritic changes with destruction of the acetabulum on the left. I ordered a CT scan which looks like chronic changes but additionally acute acetabular fractures. I discussed with orthopedics, Dr. Aguillon who feels there was no reason for admission or emergent intervention, these are likely chronic changes and exacerbated by the fall. The patient will be kept in the ER for physical therapy and case management evaluation. Physician observation starts now. Time: 21:51 Reevaluation #2: ALICIA Theodore observation continued. Uneventful night. Vital signs stable. No complaints from nursing overnight. Med reconciliation reviewed and not yet done will wait for pharmacy review. Pending disposition. Will continue to monitor. Time: 07:18 Reevaluation #3: Getting a call from [facility], the patient is having difficulty sleeping, she has 3 mg of melatonin ordered it was not effective, I increased it to 9 mg, she has also had trazodone in the past, I ordered 50 mg to be scheduled at bedtime Time: 21:09 Additional Reevaluation(s): Time: 09:18 Date: 07/01/25 Provider: Bea Alfaro PA-C Patient in physician observation for case management needs. No acute events reported overnight.? No current issues or complaints. VS stable. Patient is pending placement at facility/pending PT/CM eval. Will continue to monitor. Patient requests to be full code. I spoke with her health care proxy on file who states she is DNI/DNR but CPAP okay, I was going to fill out new MOLST with her until I talked to him. I tried to call him back to request a copy of proof of this request and called several times throughout the day. there was no answer. Updated night DIVINA with this information. It is a 30 7:00 p.m., getting a call from [facility], the patient is constipated has not had a bowel movement in 3 days, putting in a bowel regimen Time: 08:49 Date: 07/02/25 Provider: ALICIA Mishra Patient in physician observation for case management needs. Pt received updraft during the night last night. 07/03/25 08:51 MYCHAL Terrazas: Physician observation continued, no overnight events reported by nursing. Vitals stable. Case discussed with Risa from CM as well as attending, Dr. Levy. Patient will remain full code as HCP not willing to come to ED to complete MOLST. CM following for disposition. Time: 08:24 Date: 07/04/25 Provider: ALICIA Mishra Patient in physician observation for case management needs. No acute events reported overnight.? Reordered oxycodone as this was discontinued. Pending case management disposition. Time: 13:22 Date: 07/04/25 Provider: ALICIA Mishra Physician observation ended at 1322. Patient will be discharged home via BLS at 3:30 a.m. this afternoon. Medications Administered Discontinued Medications Generic Name Dose Route Start Last Admin Trade Name Freq PRN Reason Stop Dose Admin Acetaminophen 650 mg 06/29/25 04:57 06/29/25 06:26 Acetaminophen 325 Mg Tablet PO 06/29/25 04:58 Not Given ONCE ONE Acetaminophen 650 mg 06/29/25 06:00 07/04/25 13:33 Acetaminophen 325 Mg Tablet PO 650 mg Q8H YUMIKO Administration Albuterol Sulfate 2 puff 06/29/25 04:43 07/04/25 13:40 Albuterol Sulfate 90 Mcg 8 Gm Inhaler INHALE 2 puff Q4H PRN Administration Shortness Of Breath Or Wheezing Aspirin 81 mg 06/29/25 09:00 07/04/25 09:05 Aspirin Enteric Coated 81 Mg Tablet. PO 81 mg DAILY YUMIKO Administration Bisacodyl 10 mg 07/01/25 20:35 07/01/25 21:29 Bisacodyl 5 Mg Tablet. PO 07/01/25 20:36 10 mg ONCE ONE Administration Bisacodyl 10 mg 07/01/25 20:45 07/04/25 09:05 Bisacodyl 5 Mg Tablet. PO 10 mg DAILY YUMIKO Administration Lidocaine 2 patch 07/04/25 03:47 07/04/25 03:55 Lidocaine 4 % Patch Adh..Patch TRANSDERMA 07/04/25 03:48 2 patch ONCE ONE Administration Protocol Magnesium Hydroxide 30 ml 07/01/25 20:35 07/01/25 21:29 Milk Of Magnesia 30 Ml Oral.Susp PO 07/01/25 20:36 30 ml ONCE ONE Administration Magnesium Hydroxide 30 ml 07/01/25 21:00 07/02/25 09:21 Milk Of Magnesia 30 Ml Oral.Susp PO 30 ml BID YUMIKO Administration Melatonin 3 mg 06/29/25 19:56 06/30/25 19:37 Melatonin 3 Mg Tablet PO 3 mg DAILY PRN Administration insomnia Melatonin 9 mg 07/01/25 09:00 07/01/25 08:48 Melatonin 3 Mg Tablet PO 9 mg DAILY YUMIKO Administration Melatonin 9 mg 07/02/25 21:00 07/03/25 20:55 Melatonin 3 Mg Tablet PO 9 mg BEDTIME YUMIKO Administration Metoprolol Succinate 25 mg 06/29/25 09:00 07/04/25 09:05 Metoprolol Succinate Er 25 Mg Tab.Er.24h PO 25 mg DAILY YUMIKO Administration Protocol Montelukast Sodium 10 mg 06/29/25 21:00 07/03/25 20:53 Montelukast Sodium 10 Mg Tablet PO 10 mg BEDTIME [facility] Administration Non-Formulary Medication 650 mg 06/29/25 04:45 06/29/25 04:58 Acetaminophen PO Not Given Q8H [facility] Omeprazole 40 mg 06/29/25 06:30 07/04/25 06:01 Omeprazole 40 Mg Capsule. PO 40 mg DAILY@0630 [facility] Administration Oxycodone HCl 5 mg 06/29/25 01:27 06/29/25 01:36 Oxycodone Hcl Immed Release 5 Mg Tablet PO 06/29/25 01:28 5 mg ONCE ONE Administration Oxycodone HCl 5 mg 06/29/25 04:42 07/03/25 18:10 Oxycodone Hcl Immed Release 5 Mg Tablet PO 5 mg Q6H PRN Administration Pain, Moderate(Pain Scale 4-6) Oxycodone HCl 5 mg 07/04/25 08:25 07/04/25 09:04 Oxycodone Hcl Immed Release 5 Mg Tablet PO 5 mg Q6H PRN Administration Pain, Moderate(Pain Scale 4-6) Pravastatin Sodium 20 mg 06/29/25 21:00 07/03/25 20:54 Pravastatin Sodium 20 Mg Tablet PO 20 mg BEDTIME YUMIKO Administration Trazodone HCl 50 mg 06/30/25 21:15 07/03/25 20:53 Trazodone Hcl 50 Mg Tablet PO 50 mg BEDTIME YUMIKO Administration Medical Decision Making Medical Decision Making [facility] Narrative: 70-year-old female presents for evaluation after an unwitnessed fall. She denies any injuries from the follow up but does complain of left hip pain. Plan for x-ray of the left hip and pelvis. Given it was unwitnessed fall he had a CT scan of the brain and cervical spine. She has a history of chronic hyponatremia likely to alcohol abuse in his sodium today is 134 which is acceptable. The patient's alcohol level was 11 at the time of the lab draw. There are significant social detrimental to this patient's care. She lacks capacity to make her own decisions and her healthcare proxy feel she is unsafe at home. The patient will likely require case management evaluation once medically cleared Differential Diagnosis Differential Diagnoses: The differential diagnosis associated with the presentation includes Failure to thrive Alcohol abuse Dementia UTI Delirium Hyponatremia Contusion Hip fracture Cervical spine fracture Intracranial Lab Data [facility] Lab Attestation statement: I reviewed the patient's lab results. No leukocytosis. The patient has a stable anemia consistent with a baseline. She has a mild hyponatremia which is consistent with a baseline. No other significant electrolyte abnormalities warranting intervention 06/28/25 15:35 06/28/25 15:35 Labs: Lab Results 06/28/25 06/28/25 06/29/25 Range/Units 15:35 17:13 21:43 WBC 6.1 (4.8-10.8) X10*3/uL RBC 3.01 L (4.20-5.50) X10*6/uL Hgb 8.7 L (12.0-16.0) g/dl Hct 25.3 L (37.0-47.0) % MCV 84.1 (80.0-98.0) fL MCH 28.9 (27.0-33.0) pg MCHC 34.4 (31.0-35.0) g/dl RDW 16.3 H (11.0-16.0) % Plt Count 331 (160-400) X10*3/uL MPV 8.3 L (9.4-12.3) fL Immature Gran % (Auto) 3.3 H (0.0-0.4) % Neut % (Auto) 58.7 (45-73) % Lymph % (Auto) 22.6 (20-40) % [place] % (Auto) 14.5 H (2-11) % Eos % (Auto) 0.7 (0-4) % Baso % (Auto) 0.2 (0-2) % Lymph # (Auto) 1.4 (1.2-4.9) X10*3/uL [place] # (Auto) 0.9 (0.1-1.2) X10*3/uL Eos # (Auto) 0.0 (0.0-0.4) X10*3/uL Baso # (Auto) 0.0 (0.0-0.2) X10*3/uL Abs Immat Gran (auto) 0.20 H (0.00-0.03) X10*3/uL Absolute Neuts (auto) 3.6 (2.0-8.3) x10*3/uL Absolute Nucleated RBC 0.000 (0.0-0.012) X10*3/uL Nucleated RBC % (auto) 0.0 (0.0-0.2) /100WBC Sodium 134 L (135-145) mmol/L Potassium 4.7 (3.3-5.1) mmol/L Chloride 105 (96-108) mmol/L Carbon Dioxide 25 (22-29) mmol/L Anion Gap 9 L (12-20) BUN 24 H (9-16) mg/dL Creatinine 1.19 (0.5-1.4) mg/dL Estim Creat Clear Calc 33.7 Estimated GFR 45 POC Glucose 153 H (60-115) mg/dL Random Glucose 110 (60-115) mg/dL Calcium 8.9 D (8.4-10.2) mg/dL Ethyl Alcohol 11 mg/dL COVID-19 (ZAKIA) Negative (Negative) COVID-19 Clin Com See Note Chronic Conditions Patient?s care impacted by: Diabetes, Hypertension and Other (Dementia) Social Determinants Patient?s care significantly limited by Social Determinants of Health including: Inadequate housing, Low income, Alcoholism and drug addiction in family, Problems related to primary support group and Other Social Determinant of Health Discharge Plan Discharge Clinical Impression: Fall Patient Disposition: Home, Self-Care Instructions: Fall Prevention (ED) Additional Instructions: You were seen in the emergency department and did not meet necessity for medical admission. Please continue all at-home medications as prescribed. Please follow-up with your primary care physician. If any new or worsening symptoms occur including but not limited to severe pain, chest pain, shortness of breath, please seek emergent care. Prescriptions: No Action multivitamin [Daily-Cony] Tablet 1 tab PO DAILY 30 Days Qty: 30 0RF Rx Instructions: With Food baclofen 20 mg Tablet 20 mg PO DAILY PRN (Reason: Back Pain) 30 Days Qty: 30 0RF trazodone 50 mg tablet 1 tab PO BEDTIME PRN (Reason: insomnia) montelukast 10 mg tablet 1 tab PO BEDTIME pravastatin 20 mg tablet 1 tab PO BEDTIME metoprolol succinate 25 mg tablet extended release 24 hr 1 tab PO DAILY albuterol sulfate [Ventolin HFA] 90 mcg/actuation HFA aerosol inhaler 2 puff INHALATION Q4H PRN (Reason: Shortness Of Breath Or Wheezing) aspirin 81 mg tablet,delayed release (DR/EC) 1 tab PO DAILY fluticasone propion-salmeterol [Advair Diskus] 250-50 mcg/dose blister with device 1 inh INHALATION BID ondansetron HCl 4 mg tablet 4 mg PO BID PRN (Reason: nausea) omeprazole 40 mg capsule,delayed release(DR/EC) 40 mg PO DAILY@0630 acetaminophen 650 mg tablet extended release 650 mg PO Q8H ferrous sulfate 325 mg (65 mg iron) tablet,delayed release (DR/EC) 325 mg PO DAILY albuterol sulfate 2.5 mg /3 mL (0.083 %) solution for nebulization 2.5 mg inhalation Q4H PRN (Reason: Wheezing) acamprosate 333 mg tablet,delayed release (DR/EC) 666 mg PO TID Interventions: ED Discharge Assessment Last Done: 07/04/25 15:51 Discharge Date/Time: 07/04/25 15:51 Print Language: Afghan
[2025-06-28 17:41] LABS: COVID-19 Test Negative (Negative); IDNOW Serial# 08D9AD1C
[2025-06-28 18:38] VITALS: BP 133/63; PULSE 63; RESP 15; TEMP 36.7; O2SAT 96
--- NOTE | 2025-06-28 21:30 | MHC.CM.ED ---
Pt is well known to . She has been sleeping most of shift. Awaiting ortho consult. Pt lives with S.O/HCP Juanjo Montelongo ([phone]). HCP is invoked. Pt has Korsakoff's dementia. Pt has been in LTC in the past, however Juanjo often times signs her out and takes her home. Pt has fallen at home and Juanjo is again requesting LTC. Will place referrals once patient is medically cleared. Pt uses a Wheelchair and states she uses a walker. Pt has [employer] insurance.
--- NOTE | 2025-06-28 21:49 | MHC.CM.ED ---
Per provider, hip changes are chronic in nature. Ortho agrees. PT pending. Pt will probably need STR with LTC. Will place local referrals.
[2025-06-28 22:32] VITALS: BP 127/69; PULSE 62; RESP 15; TEMP 36.6; O2SAT 96
--- NOTE | 2025-06-29 00:12 | PC.NURSE ---
Took over care from REAGAN Saldaña at 23:00, pt sleeping at this time.
--- NOTE | 2025-06-29 00:49 | PC.NURSE ---
pt incontinent of urine, pt changed and timothy care completed, pt have cough and sating 94 in room air.
[2025-06-29 00:53] VITALS: BP 118/59; PULSE 74; RESP 16; TEMP 36.8; O2SAT 94
[2025-06-29] MEDS: oxyCODONE HCl Immed Release 5 MG TABLET PO ×2 (01:36→20:33)
--- NOTE | 2025-06-29 01:38 | PC.NURSE ---
medicated per mar.
[2025-06-29 04:22] VITALS: BP 122/60; PULSE 72; RESP 20; TEMP 37.2; O2SAT 97
--- NOTE | 2025-06-29 07:13 | PC.NURSE ---
Addendum entered by Patricia Siddiqi RN 06/29/25 09:59: Patient is a 70-year-old female with a past medical history significant for bipolar disorder, COPD, diabetes, dementia, alcohol use disorder presenting for evaluation after a fall. Patient lives with a significant other who is her legal healthcare proxy. She and reports that she tried to get to her walker today when she fell to the ground. She complains of the left hip pain that she attributes to chronic arthritis pain. Patient is alert. Requesting to leave AMA. Respirations even and non-labored. Abdomen soft, non-tender with positive bowel sounds. Purewick patent and draining winter urine. Positive pedal pulses with no edema. CM involved and will be working with her HCP on a disposition. Original Note: Medical History Bipolar 1 disorder COPD (chronic obstructive pulmonary disease) Effusion of shoulder joint, left Mass of joint of left shoulder Cannabis use disorder, moderate, dependence Dementia Korsakoff disease Chronic hyponatremia Schizophrenia Congestive heart failure Osteoarthritis COPD (chronic obstructive pulmonary disease) Hypertension Diabetes Coronary artery disease Sleep apnea Alcohol use disorder
[2025-06-29] MEDS: Metoprolol Succinate ER 25 MG TAB.ER.24H PO (08:05)
[2025-06-29] MEDS: Aspirin Enteric Coated 81 MG TABLET.DR PO (08:05)
[2025-06-29 13:25] VITALS: BP 122/60; PULSE 72; O2SAT 97
--- NOTE | 2025-06-29 13:58 | PHA.MEDREC ---
Addendum entered by Sydney Hernandez RPh 06/29/25 14:36: MED REC REVIEWED BY [facility] Original Note: Pharmacy Consult ? Medication Reconciliation Pharmacy has completed the medication reconciliation. Spoke with pt and she is a poor historian; called pt multiple times this morning and phone seems to be off the hook. I called pt pharmacy and they verbally read down pt medications to me. Utilized claims and what [facility] confirmed with me to complete med rec.
[2025-06-29 14:00] VITALS: BP 116/62; PULSE 69; RESP 18; TEMP 36.6; O2SAT 97
--- NOTE | 2025-06-29 18:07 | MHC.EDTECH ---
this pct gave patient bed bath , i offered her a pillow for support between her knees and patient said no .
--- NOTE | 2025-06-29 18:08 | MHC.EDTECH ---
his pct repeatedly caught the patient calling the 911 dispatch to get picked up to go home . i stated the staff has tried to call her for her and he's not answering the phone .patient started yelling at staff .
[2025-06-29 20:00] VITALS: BP 113/62; PULSE 69; RESP 18; TEMP 37.2; O2SAT 96
[2025-06-29] MEDS: Albuterol Sulfate 90 MCG 8 GM INHALER 2 PUFF INHALE (21:08)
--- NOTE | 2025-06-29 21:39 | PC.NURSE ---
this rn assumed care of pt @ 1900 pt medicated according to nov. frequent calling out and disruptive behaviors
[2025-06-29 21:46] LABS: Glucose, Whole Blood 153 mg/dL (60-115)
--- NOTE | 2025-06-30 01:41 | PC.NURSE ---
Took over patient's care at 2330, patient alert, oriented, frequently yells out for assistance vs using callbell. Denies pain or discomfort at this time, l/s clear abd soft. Warm blanket provided, callbell within reach.
[2025-06-30] MEDS: oxyCODONE HCl Immed Release 5 MG TABLET PO ×3 (03:19→19:37)
[2025-06-30 05:48] VITALS: BP 110/53; PULSE 66; RESP 16; TEMP 37.2; O2SAT 98
[2025-06-30 07:41] VITALS: BP 105/52; PULSE 82; RESP 18; TEMP 36.6; O2SAT 98
[2025-06-30] MEDS: Metoprolol Succinate ER 25 MG TAB.ER.24H PO (08:08)
[2025-06-30] MEDS: Aspirin Enteric Coated 81 MG TABLET.DR PO (08:08)
--- NOTE | 2025-06-30 08:17 | MHC.EDTECH ---
Patient was washed up. I noticed a stage 1 pressure sore on her left buttock. Nurse aware. Put a allevyn life foam dressing on it.
--- NOTE | 2025-06-30 11:02 | PC.NURSE ---
This RN took over care at 0645, patient is alert and oriented but forgetful at times, intermittently asking when the ambulance is coming to take her home, uses call jones or frequently yells out for assistance. Incontinent care done this am. Stage 11 left buttock noted, barrier cream and foam dressing applied. Patient denies pain at this time.
[2025-06-30 12:53] VITALS: BP 120/60; PULSE 89; RESP 20; TEMP 37.2; O2SAT 97
[2025-06-30 16:00] VITALS: BP 128/66; PULSE 68; RESP 18; TEMP 36.9; O2SAT 98
--- NOTE | 2025-06-30 17:57 | PC.NURSE ---
Assumed care of this patient at 1730, pt resting quietly in bed at this time. Plan of care ongoing - PT eval states LTC vs. 24 hr home care, CM to follow.
[2025-07-01] MEDS: Albuterol Sulfate 90 MCG 8 GM INHALER 2 PUFF INHALE ×3 (01:23→15:58)
[2025-07-01] MEDS: oxyCODONE HCl Immed Release 5 MG TABLET PO ×3 (01:27→18:26)
[2025-07-01 04:00] VITALS: BP 114/59; PULSE 76; RESP 16; TEMP 37.1; O2SAT 97
--- NOTE | 2025-07-01 05:35 | PC.NURSE ---
large loose, odorous brown stool. incontinent, then placed quickly on bedpan, cleaned up. dimethicone spray applied liberally to skin. left buttock small Stage II treated with barrier/zinc cream. call jones in reach
[2025-07-01 08:47] VITALS: BP 118/67; PULSE 89; RESP 18; TEMP 36.7; O2SAT 100
[2025-07-01 08:48] VITALS: BP 118/67; PULSE 89
[2025-07-01] MEDS: Metoprolol Succinate ER 25 MG TAB.ER.24H PO (08:48)
[2025-07-01] MEDS: Aspirin Enteric Coated 81 MG TABLET.DR PO (08:49)
[2025-07-01 19:25] VITALS: RESP 18
[2025-07-01 20:04] VITALS: BP 112/61; PULSE 77; RESP 18; TEMP 37.2; O2SAT 97
[2025-07-01] MEDS: Milk of Magnesia 30 ML ORAL.SUSP PO (21:29)
[2025-07-02] VITALS (7 sets, daily range): BP systolic 117–142; BP diastolic 60–75; PULSE 73–78; RESP 16–18; TEMP 36.7–37.1; O2SAT 94–99
[2025-07-02] MEDS: oxyCODONE HCl Immed Release 5 MG TABLET PO ×2 (02:29→17:08)
[2025-07-02] MEDS: Albuterol Sulfate 90 MCG 8 GM INHALER 2 PUFF INHALE ×3 (02:35→16:14)
--- NOTE | 2025-07-02 05:18 | PC.NURSE ---
call jones c/o need for pump. bilateral expiratrory wheezing ausculatated. prn ventolin q4h prn last given at 0235. pt appears calm, SpO2 98% on RA. ALICIA Dudley contacted - responded to call RT. RT Sarah Beth called at 0521, informed this nurse she is coming, pt not in distress at this time, asked to have brief changed, remains 97% SpO2
[2025-07-02] MEDS: Metoprolol Succinate ER 25 MG TAB.ER.24H PO (09:21)
[2025-07-02] MEDS: Milk of Magnesia 30 ML ORAL.SUSP PO (09:21)
[2025-07-02] MEDS: Aspirin Enteric Coated 81 MG TABLET.DR PO (09:21)
--- NOTE | 2025-07-02 09:25 | MHC.CM.ED ---
Addendum entered by Risa Lozano 07/02/25 12:34: [facility] and [facility] are unable to offer a bed. Referral will be broadcasted within 50 miles. Original Note: Patient remains in ER overflow. Received notification from [facility] that they are not able to offer a bed because they are afraid she is an elopement risk. Reached out to [facility] and [facility] to see if either can offer a bed. Continue to monitor for d/c needs.
--- NOTE | 2025-07-02 13:21 | PC.NURSE ---
Patient c/o loose BM Patient did receive bowel meds this AM. Will hold off on bowel medications
--- NOTE | 2025-07-02 13:32 | PC.NURSE ---
Provider notified of loose BMs New order for MOM daily PRN
--- NOTE | 2025-07-02 16:15 | MHC.EDTECH ---
Patient was washed up and changed. She has very loose stools. Bed linen changed as well, and asking for her asthma pump. Nurse is aware.
--- NOTE | 2025-07-02 18:08 | MHC.EDTECH ---
Patient wanted the disposable pads from under her. I tried to educate patient on ringing the jones when she need to go to bathroom. She said ok
--- NOTE | 2025-07-02 21:53 | PC.NURSE ---
frequent calls for repositioning or bed harvey. full bed change per pt request, fully cleaned, barrier applied to skin 3 times this shift
[2025-07-03] MEDS: oxyCODONE HCl Immed Release 5 MG TABLET PO ×3 (01:14→18:10)
[2025-07-03 02:10] VITALS: RESP 16
[2025-07-03] MEDS: Albuterol Sulfate 90 MCG 8 GM INHALER 2 PUFF INHALE ×3 (04:32→15:12)
[2025-07-03 05:45] VITALS: BP 134/68; PULSE 72; RESP 18; TEMP 36.8; O2SAT 100
[2025-07-03 06:06] VITALS: RESP 18
--- NOTE | 2025-07-03 08:50 | MHC.CM.ED ---
Patient remains in ER. [facility] is able to offer a bed but patient needs to be 1:1 free for 2, have a CIWA of 0 and have a copy of invoked HCP. Patient has not had a sitter since coming to the ER 06/28. 1:1 is autopopulated from when patient was in Psych in 2021. Unfortunately there is no way to delete this with each visit. CIWA=0. Copy of invoked HCP provided. [facility] PASRR Level 2 has already been obtained. However PASRR will be made aware that patient will d/c to [facility]. Continue to monitor for d/c needs.
[2025-07-03] MEDS: Metoprolol Succinate ER 25 MG TAB.ER.24H PO (10:25)
[2025-07-03] MEDS: Aspirin Enteric Coated 81 MG TABLET.DR PO (10:25)
[2025-07-03 14:00] VITALS: BP 102/70; PULSE 81; RESP 16; TEMP 35.9; O2SAT 97
--- NOTE | 2025-07-03 16:56 | MHC.EDTECH ---
assumed care at 1500, pt was found incontinent of urine, timothy care done, full bed change and bed bath given. call jones and bedside table within reach. RN aware
--- NOTE | 2025-07-03 17:10 | MHC.EDTECH ---
pt not interested in dinner tray at this time, this tech left tray on bedside table close to pt to pick on whenever she wishes, RN aware
--- NOTE | 2025-07-03 17:49 | MHC.EDTECH ---
pt assisted on bed harvey for urine output, timothy care given
[2025-07-03 20:24] VITALS: BP 137/57; PULSE 78; RESP 18; TEMP 36.7; O2SAT 98
--- NOTE | 2025-07-03 23:40 | PC.NURSE ---
Assumed care of patient at 2300, pt resting in bed eyes closed, respiratory rate even and unlabored. 2320 pt woke up asking for water and went back to sleep
[2025-07-04] MEDS: Albuterol Sulfate 90 MCG 8 GM INHALER 2 PUFF INHALE ×2 (03:15→13:40)
--- NOTE | 2025-07-04 03:16 | PC.NURSE ---
pt wok up coughing and reporting shortness of breath. SPo2 100% on RA and HR 98bpm. Administered ventolin inhaler prn as per NOV. Pt reports feeling much better. Incontinent. requiring fulll bed change. 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
[2025-07-04] MEDS: Lidocaine 4 % Patch ADH..PATCH 2 PATCH TRANSDERMA (03:55)
--- NOTE | 2025-07-04 04:05 | PC.NURSE ---
pt requesting lidocaine patches for hip pain. States she uses them at home. no patches ordered. Patient c/o 05/06 pain in hips. offered pt PRN oxycodone per NOV but pt declined. T/w requested lidocaine patch to ALICIA Dudley and administered per NOV to bilateral hips.
[2025-07-04 06:00] VITALS: BP 147/72; PULSE 81; RESP 18; TEMP 36.3; O2SAT 98
--- NOTE | 2025-07-04 06:23 | PC.NURSE ---
pt reporting 9/10 pain in hips. Declined prn pain medication. Accepted scheduled Tylenol
[2025-07-04] MEDS: oxyCODONE HCl Immed Release 5 MG TABLET PO (09:04)
[2025-07-04] MEDS: Aspirin Enteric Coated 81 MG TABLET.DR PO (09:05)
[2025-07-04] MEDS: Metoprolol Succinate ER 25 MG TAB.ER.24H PO (09:05)
--- NOTE | 2025-07-04 12:34 | MHC.CM.ED ---
Patient remains in ER overflow. Barbara Henderson has obtained insurance auth but need sig other/HCP, Juanjo to sign consent paperwork upon admission. Spoke wtherb Geiger via telephone at [phone]. Juanjo states he doesn't have money for a Lyft and has no one to bring him. Barbara Henderson offered to send consent forms to [facility] via email if Juanjo would come to ER to sign them. Juanjo declining and requesting patient return home. [facility] booked for 330pm. Patient, Ida Geiger RN and Feli VARGAS aware. Continue to monitor for d/c needs.
[2025-07-04 13:55] VITALS: BP 119/66; PULSE 74; RESP 15; TEMP 37.1; O2SAT 100
[2025-07-04 15:51] VITALS: BP 119/66; PULSE 74; RESP 15; TEMP 37.1; O2SAT 100
== END 2025-07-04 15:51 | disposition home or self-care (01) ==
PROVIDERS: Physician Assistant; Emergency Provider Emergency Medicine Emergency Medical Services; PCP Internal Medicine Geriatric Medicine
DX: S32.402A Unspecified fracture of left acetabulum, initial encounter for closed fracture (principal); J44.9 Chronic obstructive pulmonary disease, unspecified; I10 Essential (primary) hypertension; D64.9 Anemia, unspecified; E87.1 Hypo-osmolality and hyponatremia; K59.00 Constipation, unspecified; F03.90 Unspecified dementia, unspecified severity, without behavioral disturbance, psychotic disturbance, mood disturbance, and anxiety; Z79.899 Other long term (current) drug therapy; Z91.81 History of falling
CPT/HCPCS: 36415; 70450; 72125; 72192; 73502; 80048; 80307; 82947; 85025; 87635; 94640; 97162; 99285

== ENCOUNTER → 2025-06-28 16:27 | Outpatient (BNV) | payer OTHER, SELFPAY | PROVIDERS: Emergency Provider Emergency Medicine Emergency Medical Services; PCP Internal Medicine Geriatric Medicine; Visit Provider Radiology Diagnostic Radiology | DX: M16.0 Bilateral primary osteoarthritis of hip (principal); S72.001A Fracture of unspecified part of neck of right femur, initial encounter for closed fracture; S72.002A Fracture of unspecified part of neck of left femur, initial encounter for closed fracture; Z04.3 Encounter for examination and observation following other accident; W19.XXXA Unspecified fall, initial encounter | CPT/HCPCS: 70450; 72125; 72192; 73502 ==

== ENCOUNTER 2025-07-04 18:48 | Emergency (ER) | payer OTHER, SELFPAY ==
--- NOTE | ~2025-07-04 | XR_ITS ---
CLINICAL HISTORY: fall 5 view, pelvis and bilateral hips Comparison: CT/SR - CT PELVIS WO IV CON - 06/28/25 18:56 EDT CR - XR HIP LT W PEL1V - 06/28/25 17:33 EDT Findings: Redemonstration of severe bilateral protrusio acetabuli, advanced osteoarthritic changes and and extensive remodeling of the left femoral head. Overall similar appearance compared to the prior radiographs with no definite superimposed new fracture. Known defect in the left femoral neck. Prominent degenerative changes in the lumbar spine. IMPRESSION: No new fracture is evident compared to the prior studies. This document has been electronically signed by: July Crooks DO on 07/04/2025 20:55:22
--- NOTE | ~2025-07-04 | XR_ITS ---
CLINICAL HISTORY: fall and pain 3 view right shoulder Comparison: CR/SR - XR SHOULDER 2 OR MORE VIEWS RIGHT - 06/17/23 14:42 EDT Findings: Progressive deformity and heterogeneous sclerosis in the humeral head and neck since the prior examination with no definite acute fracture. No dislocation. Moderately severe narrowing and degenerative spurring in the glenohumeral joint. Moderate narrowing and degenerative spurring in the acromioclavicular joint. Multiple loose bodies adjacent to the humeral neck are larger compared to the prior study. No radiopaque foreign body. IMPRESSION: 1. Progressive deformity and heterogeneous sclerosis in the humeral head and neck since the prior examination with no definite acute fracture. 2. No dislocation. This document has been electronically signed by: July Crooks DO on 07/04/2025 20:57:00
--- NOTE | ~2025-07-04 | CT_ITS ---
CLINICAL HISTORY: fall CT head without contrast Comparison: CT/SR - CT HEAD/BRAIN WO IV CON - 06/28/25 16:45 EDT Findings: No intra-axial mass, midline shift, hydrocephalus, or acute hemorrhage. Age related atrophy and white matter disease. Opacified right mastoid air cells. Clear mastoid air cells on the left. Paranasal sinuses are clear. The orbits are within normal limits. No skull fracture. IMPRESSION: 1. No acute intracranial findings. This document has been electronically signed by: Elan Coombs MD on 07/04/2025 21:13:00
--- NOTE | ~2025-07-04 | CT_ITS ---
CLINICAL HISTORY: fall CT cervical spine without contrast Comparison: CT/SR - CT CERVICAL SPINE WO IV CON - 06/28/25 16:45 EDT Findings: Straightening of the normal cervical lordosis. Multilevel spondylosis with diffuse idiopathic skeletal hyperostosis involving C3 to C7. There is bilateral facet arthropathy. No acute fractures or dislocations. Multilevel canal and bilateral foraminal stenosis. Visualized intracranial contents are unremarkable. Opacified right mastoid air cells. No cervical fluid collections or masses. No consolidation or effusion at the lung apices. IMPRESSION: No acute findings. This document has been electronically signed by: Elan Coombs MD on 07/04/2025 21:09:44
[2025-07-04 19:05] VITALS: BP 102/68; BP 107/48; PULSE 18; PULSE 78; RESP 18; TEMP 36.9; O2SAT 100; O2SAT 98; BMI 20.2
--- NOTE | 2025-07-04 20:11 | ECG_ITS ---
Test Reason : FALL Blood Pressure : */* mmHG Vent. Rate : 69 BPM Atrial Rate : 69 BPM P-R Int : 150 ms QRS Dur : 82 ms QT Int : 396 ms P-R-T Axes : 56 -16 47 degrees QTcB Int : 424 ms Normal sinus rhythm Normal ECG When compared with ECG of 29-Aug-2024 12:53, No significant change was found Referred By: Broderick Caldwell Electronically Signed By: CAMPOS KELLER MD
--- NOTE | 2025-07-04 20:12 | ED.FALL ---
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 Caldwell HPI Narrative: 70-year-old female with underlying past medical history COPD, bipolar disease, chronic alcohol abuse, recurrent hyponatremia patient presented to our emergency department for evaluation after sustained a mechanical fall. Patient was sitting on the edge of the bed when she slid and fell landing on her buttock, patient hit her head with no LOC, declined taking any blood thinner, no head injury, no weakness, no numbness, patient is complaining of right shoulder pain, left hip pain. Related Data Home Medications ?Medication ?Instructions ?Recorded ?Confirmed albuterol sulfate 90 mcg/actuation 2 puff inhalation Q4H PRN 11/26/22 06/29/25 aerosol inhaler (Ventolin HFA) Shortness Of Breath Or Wheezing aspirin 81 mg tablet,delayed 1 tab PO DAILY 11/26/22 06/29/25 release metoprolol succinate 25 mg 1 tab PO DAILY 11/26/22 06/29/25 tablet,extended release 24 hr montelukast 10 mg tablet 1 tab PO BEDTIME 11/26/22 06/29/25 pravastatin 20 mg tablet 1 tab PO BEDTIME 11/26/22 06/29/25 trazodone 50 mg tablet 1 tab PO BEDTIME PRN insomnia 11/26/22 06/29/25 fluticasone 250 mcg-salmeterol 50 1 inh inhalation BID 01/31/23 06/29/25 mcg/dose blistr powdr for inhalation (Advair Diskus) ondansetron HCl 4 mg tablet 4 mg PO BID PRN nausea 01/31/23 06/29/25 acamprosate 333 mg tablet,delayed 666 mg PO TID 05/25/23 06/29/25 release albuterol sulfate 2.5 mg/3 mL 2.5 mg inhalation Q4H PRN Wheezing 05/25/23 06/29/25 (0.083 %) solution for nebulization omeprazole 40 mg capsule,delayed 40 mg PO DAILY@0630 06/19/24 06/29/25 release acetaminophen 650 mg 650 mg PO Q8H 08/05/24 06/29/25 tablet,extended release ferrous sulfate 325 mg (65 mg 325 mg PO DAILY 08/05/24 06/29/25 iron) tablet,delayed release Previous Rx's ?Medication ?Instructions ?Recorded baclofen 20 mg tablet 20 mg PO DAILY PRN Back Pain 30 04/29/22 days #30 tabs multivitamin (Daily-Cony tablet) 1 tab PO DAILY 30 days #30 tabs 04/29/22 Allergies Allergy/AdvReac Type Severity Reaction Status Date / Time fluticasone (From Advair Allergy Unknown Verified 07/04/25 19:09 Diskus) salmeterol (From Advair Allergy Unknown Verified 07/04/25 19:09 Diskus) paroxetine (From Paxil) AdvReac Intermediate Nausea and Verified 07/04/25 19:09 Vomiting Review of Systems Review of Systems: All other systems are reviewed and are negative Constitutional: Reports as per HPI and Reports no additional constitutional complaints Eyes: Reports as per HPI and Reports no additional eye complaints Reports system reviewed and no additional complaints, except as documented Cardiovascular: Reports as per HPI and Reports no additional cardiovascular complaints Respiratory: Reports as per HPI and Reports no additional respiratory complaints Gastrointestinal: Reports as per HPI and Reports no additional gastrointestinal complaints Genitourinary: Reports no additional female genitourinary complaints Musculoskeletal: Reports no additional musculoskeletal complaints Skin/Breast: Reports system reviewed and no additional complaints, except as docu Psychiatric: Reports no additional psychiatric complaints Endocrine: Reports no additional endocrine complaints Hematologic/Lymphatic: Reports no additional hematologic/lymphatic complaints Allergic/Immunologic: Reports no additional allergic/immunologic complaints Reports system reviewed and no additional complaints, except as documented and Reports Abnormal speech present [facility] Past Medical History Medical History Bipolar 1 disorder COPD (chronic obstructive pulmonary disease) Effusion of shoulder joint, left Mass of joint of left shoulder Cannabis use disorder, moderate, dependence Dementia Korsakoff disease Chronic hyponatremia Schizophrenia Congestive heart failure Osteoarthritis COPD (chronic obstructive pulmonary disease) Hypertension Diabetes Coronary artery disease Sleep apnea Alcohol use disorder Surgical History Hx of appendectomy Family History Family History Sister Breast cancer, Onset Age: 40 Sister Breast cancer, Onset Age: 50 Social History Social History Household Members: Spouse Household Members Other:: 2 Housing: Unknown / Unable to assess Do you presently have visiting nurse or other home services: Yes Alcohol intake: current Alcohol intake frequency: 3 or more drinks per day Alcohol type: beer Comment: 1:1 at bedside Patient Tobacco Use Status: Tobacco use Unknown Tobacco use type: Cigarette Cigarette Packs Per Day: 0.5 Cigarettes Per Day: 10.0 Years Smoked: 53 e-Cigarette/Vaping Use: Never Used Second Hand Smoke Exposure: No Substance Use Type: Marijuana Advance Directives: Yes Advance Directives on File: Yes Advance Directives Date on File: 10/10/20 service: No Current occupational status: unemployed, disabled and other Sexual orientation: Straight/Heterosexual Physical Exam Vital Signs: Vital Signs: Last Vital Signs Temp 98.6 F 07/04/25 20:59 Pulse 68 07/04/25 20:59 Resp 16 07/04/25 20:59 BP 127/59 L 07/04/25 20:59 Pulse Ox 95 07/04/25 20:59 O2 Del Method Room Air 07/04/25 20:59 BMI result Body Mass Index 20.2 Vital signs have been reviewed and appear to be correct. Blood pressure elevated. Heart rate normal. Respiratory rate normal. Temperature normal. Oxygen saturation normal. Appearance: Alert. Oriented X3. No acute distress. Head: Normal external exam. Normocephalic. Atraumatic. No Jones signs noted. No raccoon eyes noted Eyes: PERRLA. EOMI. Conjunctiva and sclera normal. Eyelids normal. ENT: TM's Normal. Pharynx normal. Uvula midline. Moist mucous membranes. No trismus noted. No drooling noted. No muffled voice noted. Neck: Normal inspection. Neck supple. FROM. No adenopathy. Thyroid Normal. No meningeal signs. No neck mass noted. CVS: Normal heart rate and rhythm. Heart sound normal. No murmurs noted. Pulses normal throughout. Respiratory: No respiratory distress. Painless inspiration. Breath sounds normal. No wheezes/rales/rhonchi noted. Chest nontender. No accessory muscle usage noted or decreased air movement noted. Abdomen: Soft and nontender. Bowel sounds normal in all 4 quadrants. No distention noted. No organomegaly noted. No visible injury noted. Back: No CVA tenderness. Full range of motion noted. Skin: Skin warm and dry. Normal skin color. Normal skin turgor. No rashes/lesions/lacerations noted. Extremities: No lower extremity edema. Extremities exhibit normal range of motion. Extremities nontender. Neuro: Oriented X 3. Cranial nerve exam: II-XII are grossly intact No motor deficit. No sensory deficit. Reflexes normal. Course Reevaluation(s) Reevaluation #1: studies and labs were reviewed unremarkable studies for acute findings secondary to fall, negative head /C-spine CT with normal neuro exam. also negative right shoulder/ bilateral hip x-rays. Will reassure and discharge. Time: 22:30 Medical Decision Making Differential Diagnosis Differential Diagnoses: The differential diagnosis associated with the presentation includes ( Intracranial bleed, cervical spine injury, chest injury, extremity injuries, abdominal injury, back injury, electrolyte derangement, severe anemia, ACS.) Admission/Observation Consideration of admission/observation: Escalation of care including admission/observation considered Lab Data MDM Lab Attestation statement: I reviewed the patient's lab results. 07/04/25 20:57 07/04/25 20:57 Independent Interpretation I performed an independent interpretation of an: Plain X-Ray ( Right shoulder/ bilateral hip x-ray: No acute fracture.) and CT Scan ( Head/ C-spine CT: No acute pathology.) Radiology Impression Discussion of test interpretation with radiology: I have reviewed the radiologist's reading. Discharge Plan Discharge Clinical Impression: Accident due to mechanical fall without injury Patient Disposition: Home, Self-Care Instructions: Fall Prevention (ED) Prescriptions: No Action multivitamin [Daily-Cony] Tablet 1 tab PO DAILY 30 Days Qty: 30 0RF Rx Instructions: With Food baclofen 20 mg Tablet 20 mg PO DAILY PRN (Reason: Back Pain) 30 Days Qty: 30 0RF trazodone 50 mg tablet 1 tab PO BEDTIME PRN (Reason: insomnia) montelukast 10 mg tablet 1 tab PO BEDTIME pravastatin 20 mg tablet 1 tab PO BEDTIME metoprolol succinate 25 mg tablet extended release 24 hr 1 tab PO DAILY albuterol sulfate [Ventolin HFA] 90 mcg/actuation HFA aerosol inhaler 2 puff INHALATION Q4H PRN (Reason: Shortness Of Breath Or Wheezing) aspirin 81 mg tablet,delayed release (DR/EC) 1 tab PO DAILY fluticasone propion-salmeterol [Advair Diskus] 250-50 mcg/dose blister with device 1 inh INHALATION BID ondansetron HCl 4 mg tablet 4 mg PO BID PRN (Reason: nausea) omeprazole 40 mg capsule,delayed release(DR/EC) 40 mg PO DAILY@0630 acetaminophen 650 mg tablet extended release 650 mg PO Q8H ferrous sulfate 325 mg (65 mg iron) tablet,delayed release (DR/EC) 325 mg PO DAILY albuterol sulfate 2.5 mg /3 mL (0.083 %) solution for nebulization 2.5 mg inhalation Q4H PRN (Reason: Wheezing) acamprosate 333 mg tablet,delayed release (DR/EC) 666 mg PO TID Print Language: Puerto Rican
[2025-07-04 20:59] VITALS: BP 127/59; PULSE 68; RESP 16; TEMP 37; O2SAT 95
[2025-07-04 21:02] LABS: MANUAL DIFF FLAG NO
[2025-07-04 21:12] LABS: Hematocrit 31.7 % (37.0-47.0); Hemoglobin 10.6 g/dl (12.0-16.0); Imm Gran Abs Auto 0.23 X10*3/uL (0.00-0.03); Imm Gran Pct Auto 3.7 % (0.0-0.4); Lymphocytes Absolute Auto 1.7 X10*3/uL (1.2-4.9); Mean Corpuscular HGB Conc 33.4 g/dl (31.0-35.0); Mean Corpuscular Hemoglobin 28.6 pg (27.0-33.0); Mean Corpuscular Volume 85.4 fL (80.0-98.0); NRBC Abs Auto 0.000 X10*3/uL (0.0-0.012); NRBC Pct Auto 0.0 /100WBC (0.0-0.2); Platelet Count 366 X10*3/uL (160-400); Red Blood Count 3.71 X10*6/uL (4.20-5.50); White Blood Count 6.2 X10*3/uL (4.8-10.8)
[2025-07-04 21:24] LABS: Alanine Aminotransferase < 6 U/L (0-31); Albumin Level 3.1 g/dL (3.5-5.0); Alkaline Phosphatase 123 U/L (39-117); Anion Gap 10 (12-20); Aspartate Amino Transferase 28 U/L (5-31); Blood Urea Nitrogen 13 mg/dL (9-16); Calcium 9.2 mg/dL (8.4-10.2); Carbon Dioxide 26 mmol/L (22-29); Chloride 100 mmol/L (96-108); Creatinine Clr Calc Pharmacy 46.1; Estimated Glomerular Filt Rate > 60; Lipase 24 U/L (8-78); Potassium 5.3 mmol/L (3.3-5.1); Sodium 131 mmol/L (135-145); Total Protein 7.4 g/dL (6.5-8.0)
[2025-07-04 21:28] LABS: Troponin-I High Sensitivity < 2.7 ng/L (<3.5-17.0)
--- NOTE | 2025-07-04 22:05 | PC.NURSE ---
Attempted to call home to [facility] of discharge and phone rings busy.
--- NOTE | 2025-07-04 23:15 | PC.NURSE ---
Report given to [facility] personnel for transport home.
[2025-07-04 23:24] VITALS: BP 127/59; PULSE 68; RESP 16; TEMP 37; O2SAT 95
== END 2025-07-04 23:25 | disposition home or self-care (01) ==
PROVIDERS: Emergency Provider Emergency Medicine
DX: M25.511 Pain in right shoulder (principal); M25.552 Pain in left hip; I10 Essential (primary) hypertension; J44.9 Chronic obstructive pulmonary disease, unspecified; W06.XXXA Fall from bed, initial encounter; Y93.89 Activity, other specified; Y92.092 Bedroom in other non-institutional residence as the place of occurrence of the external cause; Y99.8 Other external cause status
CPT/HCPCS: 36415; 70450; 72125; 73030; 73521; 80048; 80076; 82550; 83690; 84484; 85025; 93005; 99284

== ENCOUNTER → 2025-07-04 19:57 | Outpatient (BNV) | payer OTHER, SELFPAY | PROVIDERS: Emergency Provider Emergency Medicine; Visit Provider Radiology Diagnostic Radiology | DX: M54.2 Cervicalgia (principal); R90.82 White matter disease, unspecified; H70.91 Unspecified mastoiditis, right ear; M16.10 Unilateral primary osteoarthritis, unspecified hip; M19.011 Primary osteoarthritis, right shoulder | CPT/HCPCS: 70450; 72125; 73030; 73521 ==

== ENCOUNTER → 2025-07-04 20:11 | Outpatient (BNV) | payer OTHER, SELFPAY | PROVIDERS: Emergency Provider Emergency Medicine; Visit Provider Internal Medicine Cardiovascular Disease | DX: Z04.3 Encounter for examination and observation following other accident (principal) | CPT/HCPCS: 93010 ==

== ENCOUNTER 2025-08-18 13:11 | Emergency (ER) | payer OTHER, SELFPAY ==
[2025-08-18 13:19] VITALS: BP 120/62; BP 137/56; PULSE 69; PULSE 74; RESP 16; O2SAT 97; O2SAT 98; BMI 21.0
--- NOTE | 2025-08-18 13:22 | ECG_ITS ---
Test Reason : AMS Blood Pressure : */* mmHG Vent. Rate : 68 BPM Atrial Rate : 68 BPM P-R Int : 154 ms QRS Dur : 84 ms QT Int : 406 ms P-R-T Axes : 70 -15 49 degrees QTcB Int : 431 ms Sinus rhythm with marked sinus arrhythmia Anteroseptal infarct , age undetermined Abnormal ECG When compared with ECG of 04-Jul-2025 20:37, No significant change was found Referred By: Lucy Terrazas Electronically Signed By: LYNDA GLEZ
--- NOTE | 2025-08-18 13:22 | ED_ITS ---
HPI - General Adult General Chief complaint: Psychiatric Symptoms Stated complaint: Hi, etoh Time Seen by Provider: 08/18/25 13:20 Source: patient, EMS, RN notes reviewed, old records reviewed and industrial photographer Mode of arrival: EMS Limitations: language barrier History of Present Illness ED Provider: Nini HPI narrative: Patient is a 70-year-old [place] Korean-speaking female with history of bipolar 1 disorder, COPD, alcohol use disorder, DM, cannabis use disorder presenting to the emergency department via EMS on a section 12 after making homicidal statements towards her . Patient reports that both she and her were drinking alcohol today and she admits to making comments about stabbing him with a steak knife. She currently denies any homicidal or suicidal ideation, auditory or visual hallucinations. Complains of chronic pain due to arthritis but denies any current physical complaints. Denies any history of alcohol withdrawal seizures. Denies any drug use. MD complaint: alcohol intoxication, homicidal ideation Related Data Home Medications ?Medication ?Instructions ?Recorded ?Confirmed albuterol sulfate 90 mcg/actuation 2 puff inhalation Q 4H PRN 11/26/22 08/19/25 aerosol inhaler (Ventolin HFA) Shortness Of Breath Or Wheezing metoprolol succinate 25 mg 1 tab PO DAILY 11/26/22 tablet,extended release 24 hr montelukast 10 mg tablet 1 tab PO BEDTIME 11/26/22 pravastatin 20 mg tablet 1 tab PO BEDTIME 11/26/22 trazodone 50 mg tablet 1 tab PO BEDTIME PRN insomni a 11/26/22 08/19/25 fluticasone 250 mcg-salmeterol 50 1 inh inhalation BID 01/31/23 08/19/25 mcg/dose blistr powdr for inhalation (Advair Diskus) ondansetron HCl 4 mg tablet 4 mg PO BID PRN nausea 04/1808/19/25 acamprosate 333 mg tablet,delayed 666 mg PO TID 08/19/25 release albuterol sulfate 2.5 mg/3 mL 2.5 mg inhalation Q4H ID N Wheezing 05/25/23 08/19/25 (0.083 %) solution for nebulization omeprazole 40 mg capsule,delayed 40 mg PO DAILY@0630 0 06/19/24 08/19/25 release acetaminophen 650 mg 650 mg PO Q8H PRN Pain 08/0508/19/25 tablet,extended release ferrous sulfate 325 mg (65 mg 325 mg PO DAILY 08/05/24 08/19/25 iron) tablet,delayed release Previous Rx's ?Medication ?Instructions ?Recorded baclofen 20 mg tablet 20 mg PO DAILY PRN Back Pain 30 04/29/22 days #30 tabs Allergies Allergy/AdvReac Type Severity Reaction Status Date / Time fluticasone (From Advair Allergy Unknown Verified 08/18/25 13:26 Diskus) salmeterol (From Advair Allergy Unknown Verified 08/18/25 13:26 Diskus) paroxetine (From Paxil) AdvReac Intermediate Nausea and Verified 08/18/25 13:26 Vomiting Review of Systems 2 Review of Systems: as per hpi Yes all other systems are reviewed and are negative Constitutional: Constitutional: Reports as per HPI PMFSH Past Medical History Medical History Bipolar 1 disorder COPD (chronic obstructive pulmonary disease) Effusion of shoulder joint, left Mass of joint of left shoulder Cannabis use disorder, moderate, dependence Dementia Korsakoff disease Chronic hyponatremia Schizophrenia Congestive heart failure Osteoarthritis COPD (chronic obstructive pulmonary disease) Hypertension Diabetes Coronary artery disease Sleep apnea Alcohol use disorder Surgical History Hx of appendectomy Family History Family History Sister Breast cancer, Onset Age: 40 Sister Breast cancer, Onset Age: 50 Social History Social History Household Members: Spouse Household Members Other:: 2 Housing: Unknown / Unable to assess Do you presently have visiting nurse or other home services: Yes Alcohol intake: current Alcohol intake frequency: 3 or more drinks per day Alcohol type: beer Comment: 1:1 at bedside Patient Tobacco Use Status: Tobacco use Unknown Tobacco use type: Cigarette Cigarette Packs Per Day: 0.5 Cigarettes Per Day: 10.0 Years Smoked: 53 e-Cigarette/Vaping Use: Never Used Second Hand Smoke Exposure: No Substance Use Type: Marijuana Advance Directives: Yes Advance Directives on File: Yes Advance Directives Date on File: 10/10/20 Do you have a plan to hurt others: Vague service: No Current occupational status: unemployed, disabled and other Sexual orientation: Straight/Heterosexual Physical Exam ED Vital Signs: Vital Signs - 24 hr 08/30/25 14:00 08/30/25 22:00 08/31/25 06:31 Temperature 97.3 F 98.4 F 98.0 F Pulse Rate 64 70 79 Respiratory Rate 18 16 16 Blood Pressure 126/60 150/70 H 142/71 H Pulse Oximetry 100 100 98 Oxygen Delivery Method Nasal Cannula Room Air Nasal Cannula Oxygen Flow Rate 2 2 08/31/25 08:45 Temperature Pulse Rate 79 Respiratory Rate 16 Blood Pressure Pulse Oximetry Oxygen Delivery Method Oxygen Flow Rate BMI result Body Mass Index 21.0 Vital signs have been reviewed and appear to be correct. Blood pressure normal. Heart rate normal. Respiratory rate normal. Temperature normal. Oxygen saturation normal. Const General: cooperative and no acute distress Orientation/consciousness: oriented to person, oriented to place, oriented to time and patient oriented x3 Limitations: language barrier HENMT Head: Yes normocephalic and Yes atraumatic Ears: external ears normal General nose exam: Normal external nose present Face and sinus: Yes face symmetric Mouth: oropharynx normal and moist mucous membranes Throat: Yes uvula midline Eyes Pupils: Equal, round and reactive pupils present Neck Neck: Yes normal visual inspection and Yes supple Resp Effort & Inspection: normal respiratory effort and able to speak in complete sentences Auscultation: clear to auscultation bilaterally Cardio Rate: regular rate Rhythm: regular rhythm Heart sounds: S1 normal heart sound present and S2 normal heart sound present GI Palpation (GI): Soft to palpation and nontender Auscultation: normoactive bowel sounds General: Yes no CVA tenderness Back/Spine/Pelvis Back: no CVA tenderness Skin General skin exam: elasticity normal and turgor normal Neuro General: oriented to person, oriented to place, oriented to time, patient oriented x3, moves all extremities, no focal motor deficits and CN's II-XI intact bilaterally Cranial nerves: Yes Equal, round and reactive pupils present Cognition (Neuro): normal cognition Extrem General: Yes full ROM, Yes no pedal edema and Yes no calf tenderness Psych Mental Status: mental status grossly normal Speech and movement: Normal speech and movement present Affect: normal affect Attitude: cooperative Thought process: Normal thought process present Thought content: suicidality, no homicidality and no hallucinations Course Reevaluation(s) Reevaluation #1: Time: 00:35 Date: 08/19/25 Provider: ALICIA Yin Patient in physician observation for case management needs. No acute events reported overnight.? No current issues or complaints. VS stable. Patient is pending placement at facility/pending PT/CM eval. Will continue to monitor.The patient has been held for physical therapy and case management of at this time. The patient was supposed to be discharged home, she was awaiting transport. A family member called, they are concerned for the patient's safety. Her is her primary caregiver, he is unable to continue to care for her in the home. They are requesting PT case management for likely placement. She has been cleared by the crisis team. Placing orders now. Time: 00:35 Reevaluation #2: Time: 07:32 Date: 08/20/25 Provider: ALICIA Amador Patient in physician observation for case management needs. No acute events reported overnight.? No current issues or complaints. VS stable. Patient is pending PT/CM eval. Home meds restarted. Will monitor CIWA scores. Will continue to monitor. Time: 07:32 Reevaluation #3: Time: 07:39 Date: 08/21/25 Provider: ALICIA Amador Patient in physician observation for case management needs. No acute events reported overnight.? No current issues or complaints. VS stable. Patient attemped to be seen by PT yesterday but was yelling out and refusing to participate. Per case management [facility] in [place] is offering a bed and is pending insurance authoization. will continue to monitor. ciwa 2, no evidence of etoh withdrawal at this time. Time: 07:38 Additional Reevaluation(s): Time: 11:34 a.m. date: 08/22/2025 Provider: Leobardo Jo PA-C Patient and physician observation for case management needs. No acute events reported overnight. Nurse contacted me stating that the patient is very anxious, yelling out, and refusing to take scheduled Tylenol for her pain. I went to speak to the patient who was tearful, stating she wants to go home with her kids. We are currently awaiting insurance authorization for STR placement. I explained this to the patient. She is being medicated with 1mg po Ativan and scheduled tylenol dose. Patient is agreeable to take the medications. Will continue to monitor as we await insurance authorization for disposition. 2:18 AM 08/24/2025 (EVA TINOCO): I reviewed her urine study including the micro which is growing GNR, her prior culture was E coli sensitive to cephalosporin. At this time I am going to start her on Ceftin for 7 days. Time: 08:14 Date: 08/24/25 Provider: ALICIA Veronica Patient in physician observation for case management needs. No acute events reported overnight.?No current issues or complaints. VS stable. Patient is pending placement at facility. Will continue to monitor. Time: 08:48 Date: 08/25/25 Provider: Leobardo Jo PA-C Patient in physician observation for case management needs. No acute events reported overnight.?No current issues or complaints. VS stable. UA culture positive for E.Coli, patient currently on Ceftin for treatment and bacteria is susceptible to this. Currently awaiting insurance authorization for placement at [facility], most likely to be discharged and transfered to facility on 08/27 per CM notes. Will continue to monitor as we await disposition. - Time: 10:25am Patient reporting 10/10 arthritic knee pain, patient had dose of Tylenol at 3am, and is not due for her next dose. Will give 5mg PO oxycodone for breakthrough pain. 5:48 PM 08/26/2025 (Lucy Terrazas FL[employer] COMM[employer]ICATIONS SPECIALIST): Physician observation continued, no overnight events reported by nursing. This am notified by nursing that patient wanted to leave AMA, called the police in an attempt to leave. Patient has her HCP invoked and cannot leave. CM following for disposition to STR. Vitals stable. Time: 13:21 Date: 08/27/25 Provider: ALICIA Mishra Patient in physician observation for case management needs. I was informed that patient has had multiple episodes of diarrhea. She is on antibiotics. C diff and stool panel was ordered. Also given 1 time dose of loperamide. VS stable. We will continue to monitor pending case management disposition. Time: 08:24 Date: 08/28/25 Provider: Leobardo Jo PA-C Patient in physician observation for case management needs. Nursing reports patient needed dose of ativan overnight as she was anxious and agitated that she is still in the department. Patient was awaiting insurance authorization for acceptance at [facility]. The facility no longer has a bed available. CM has reached out to [facility], and other facilities for STR placement. Will continue to monitor as we await dispositon. Time: 15:00 Date: 08/29/25 Provider: Leobardo Jo PA-C Patient in physician observation for case management needs. No acute events reported overnight.? No current issues or complaints. VS stable. Patient has a available bed at [facility] however is positive norovirus and facility is requiring patient to be GI symptom free before they will accept her. Patient is still having diarrhea. Cm we will reach out to the facility tomorrow (08/30) for possible DC on Friday 08/31 to STR. VSS, no abdominal pain. Will continue to monitor as we await plan for disposition. Time: 09:01 Date: 08/30/25 Provider: ALICIA Mishra Patient in physician observation for case management needs. Awaiting CM disposition, will continue to monitor. Time: : Date: 08/31/25 Provider: ALICIA Dupree Physician observation ended at 1030. Patient will be discharged to [facility] via BLS at 10:30 Medications Administered Generic Name Dose Route Start Last Admin Trade Name Freq PRN Reason Stop Dose Admin Acamprosate 666 mg 08/20/25 09:00 08/31/25 08:29 Acamprosate Calcium 333 Mg Tablet. PO 666 mg TID YUMIKO Administration Acetaminophen 650 mg 08/20/25 08:03 08/29/25 21:06 Acetaminophen 325 Mg Tablet PO 650 mg Q8H PRN Administration Pain, Mild 1-3,fever,headache Albuterol Sulfate 2 puff 08/20/25 07:28 08/23/25 05:05 Albuterol Sulfate 90 Mcg 8 Gm Inhaler INHALE 2 puff Q4H PRN Administration Shortness Of Breath Or Wheezing Baclofen 20 mg 08/20/25 07:28 08/30/25 22:31 Baclofen 20 Mg Tablet PO 20 mg DAILY PRN Administration Back Pain Ferrous Sulfate 324 mg 08/20/25 09:00 08/31/25 08:29 Ferrous Sulfate 324 Mg Tablet. PO 324 mg DAILY YUMIKO Administration Fluticasone/Vilanterol 1 puff 08/20/25 08:00 08/31/25 08:44 Fluticasone/Vilanterol /25 Blst.W.Dev INHALE 1 puff RDAILY YUMIKO Administration Lidocaine 1 patch 08/20/25 15:58 08/30/25 23:44 Lidocaine 4 % Patch Adh..Patch TRANSDERMA 1 patch DAILY PRN Administration mild pain Protocol Metoprolol Succinate 25 mg 08/20/25 09:00 08/31/25 08:29 Metoprolol Succinate Er 25 Mg Tab.Er.24h PO 25 mg DAILY YUMIKO Administration Protocol Montelukast Sodium 10 mg 08/20/25 21:00 08/30/25 21:09 Montelukast Sodium 10 Mg Tablet PO 10 mg BEDTIME YUMIKO Administration Omeprazole 40 mg 08/20/25 07:30 08/31/25 06:09 Omeprazole 40 Mg Capsule. PO 40 mg DAILY@0630 YUMIKO Administration Pravastatin Sodium 20 mg 08/20/25 21:00 08/30/25 21:08 Pravastatin Sodium 20 Mg Tablet PO 20 mg BEDTIME YUMIKO Administration Trazodone HCl 50 mg 08/20/25 07:28 08/30/25 21:08 Trazodone Hcl 50 Mg Tablet PO 50 mg BEDTIME PRN Administration Insomnia Discontinued Medications Generic Name Dose Route Start Last Admin Trade Name Freq PRN Reason Stop Dose Admin Cefuroxime Axetil 250 mg 08/24/25 02:20 08/30/25 21:08 Cefuroxime Axetil 250 Mg Tablet PO 08/31/25 02:19 250 mg BID YUMIKO Administration Lidocaine 2 patch 08/22/25 04:58 08/22/25 09:05 Lidocaine 4 % Patch Adh..Patch TRANSDERMA 08/22/25 04:59 2 patch ONCE ONE Administration Protocol Loperamide HCl 2 mg 08/27/25 13:01 08/27/25 13:58 Loperamide Hcl 2 Mg Capsule PO 08/27/25 13:02 2 mg ONCE ONE Administration Lorazepam 1 mg 08/23/25 11:31 08/23/25 11:52 Lorazepam 1 Mg Tablet PO 08/23/25 11:32 1 mg ONCE ONE Administration Lorazepam 1 mg 08/28/25 00:25 08/28/25 00:28 Lorazepam 1 Mg Tablet PO 08/28/25 00:26 1 mg ONCE ONE Administration Oxycodone HCl 5 mg 08/25/25 10:24 08/25/25 11:12 Oxycodone Hcl Immed Release 5 Mg Tablet PO 08/25/25 10:25 5 mg ONCE ONE Administration Trazodone HCl 100 mg 08/19/25 00:10 08/19/25 00:15 Trazodone Hcl 100 Mg Tablet PO 08/19/25 00:11 100 mg ONCE ONE Administration Trazodone HCl 100 mg 08/19/25 23:50 08/19/25 23:55 Trazodone Hcl 100 Mg Tablet PO 08/19/25 23:51 100 mg ONCE ONE Administration Medical Decision Making Medical Decision Making [facility] Narrative: Patient is a 70-year-old [place] Korean-speaking female with history of bipolar 1 disorder, COPD, alcohol use disorder, DM, cannabis use disorder presenting to the emergency department via EMS on a section 12 after making homicidal statements towards her . On exam patient is awake, A+Ox3, VS WNL, afebrile, normal neurological exam without focal deficits, physical exam findings as above. Given reported symptoms and physical exam findings, initial differential includes but is not limited to alcohol or drug intoxication, homicidal ideation, electrolyte abnormality. Will plan for medical clearance then CARE team evaluation. Plan discussed with patient who is agreeable to this. In-person data processing systems consultant was utilized for all interactions, assessments, and discussions. Labs at baseline, ethanol negative. UDS pending. Will medically clear patient at this time for CARE team eval and place on physician observation. Patient cleared by CARE team for discharge home, she will have 3 day follow up. I am comfortable with this plan. Return precautions discussed with patient who verbalized understanding of and agreement with plan. Differential Diagnosis Differential Diagnoses: The differential diagnosis associated with the presentation includes as per [facility] Admission/Observation Consideration of admission/observation: Escalation of care including admission/observation considered Consult Healthcare Provider Management of the patient was discussed with: Behavioral Health Provider Lab Data [facility] Lab Attestation statement: I reviewed the patient's lab results. as per [facility] 08/18/25 16:12 08/18/25 16:12 Labs: Lab Results 08/18/25 08/18/25 08/21/25 Range/Units 15:56 16:12 20:34 WBC 4.8 (4.8-10.8) X10*3/uL RBC 3.53 L (4.20-5.50) X10*6/uL Hgb 10.4 L (12.0-16.0) g/dl Hct 31.9 L (37.0-47.0) % MCV 90.4 (80.0-98.0) fL MCH 29.5 (27.0-33.0) pg MCHC 32.6 (31.0-35.0) g/dl RDW 18.8 H (11.0-16.0) % Plt Count 261 D (160-400) X10*3/uL MPV 8.7 L (9.4-12.3) fL Immature Gran % (Auto) 1.5 H (0.0-0.4) % Neut % (Auto) 59.6 (45-73) % Lymph % (Auto) 25.9 (20-40) % Elbert % (Auto) 12.2 H (2-11) % Eos % (Auto) 0.6 (0-4) % Baso % (Auto) 0.2 (0-2) % Lymph # (Auto) 1.3 (1.2-4.9) X10*3/uL Elbert # (Auto) 0.6 (0.1-1.2) X10*3/uL Eos # (Auto) 0.0 (0.0-0.4) X10*3/uL Baso # (Auto) 0.0 (0.0-0.2) X10*3/uL Abs Immat Gran (auto) 0.07 H (0.00-0.03) X10*3/uL Absolute Neuts (auto) 2.9 (2.0-8.3) x10*3/uL Absolute Nucleated RBC 0.000 (0.0-0.012) X10*3/uL Nucleated RBC % (auto) 0.0 (0.0-0.2) /100WBC Sodium 138 (135-145) mmol/L Potassium 4.6 (3.3-5.1) mmol/L Chloride 106 (96-108) mmol/L Carbon Dioxide 26 (22-29) mmol/L Anion Gap 11 L (12-20) BUN 13 (9-16) mg/dL Creatinine 0.80 (0.5-1.4) mg/dL Estim Creat Clear Calc 50.2 Estimated GFR > 60 POC Glucose (60-115) mg/dL Random Glucose 100 (60-115) mg/dL Calcium 9.2 (8.4-10.2) mg/dL Magnesium 2.2 (1.6-2.6) mg/dL Total Bilirubin 0.3 (0.0-1.0) mg/dL AST 15 (5-31) U/L ALT < 6 (0-31) U/L Alkaline Phosphatase 126 H (39-117) U/L Total Protein 7.1 (6.5-8.0) g/dL Albumin 3.4 L (3.5-5.0) g/dL Urine Color Yellow Urine Appearance Cloudy Urine pH 6.5 (5.0-9.0) Ur Specific [place] 1.020 (1.005-1.025) Urine Protein 30 (1+) H (Neg-Trace) mg/dL Urine Glucose (UA) Negative (Negative) mg/dL Urine Ketones Negative (Negative) mg/dL Urine Blood Large (3+) H (Negative) Urine Nitrite Negative (Negative) Ur Leukocyte Esterase Moderate (2+) H (Negative) Urine RBC >20 H (0-2) /HPF Urine WBC 21-50 H (0-5) /HPF Ur Squamous Epith Cells 0-2 (0-2) /HPF Urine Bacteria 4+ (None Seen) Hyaline Casts 0-2 (0-2) /LPF Stl C. cayetanensis PCR (Not Detect.) Stool Rotavirus A PCR (Not Detect.) Stl Adenov F 40/41 PCR (Not Detect.) Stool Astrovirus (PCR) (Not Detect.) Stool Campylobacter PCR (Not Detect.) Stool Cryptosporidium PCR (Not Detect.) Stl Sh Tox Pr E STEC PCR (Not Detect.) Stool E coli O157 PCR (Not Detect.) Stl Enterotoxigenic E PCR (Not Detect.) Stool EPEC (PCR) (Not Detect.) Stool EAEC (PCR) (Not Detect.) Stl E. histolytica PCR (Not Detect.) Stool Giardia Lamblia PCR (Not Detect.) Stl P. shigelloides PCR (Not Detect.) Stool Salmonella PCR (Not Detect.) Stool Sapovirus (PCR) (Not Detect.) Stl Shigella/EIEC PCR (Not Detect.) St Y.enterocolitica PCR (Not Detect.) Stool Vibrio (PCR) (Not Detect.) Stl Vibrio cholerae PCR (Not Detect.) Stl Norovirus GI/GII PCR (Not Detect.) Urine Opiates Screen Not Detected (Not Detect) Ur Buprenorphine Scrn Not Detected (Not Detect) ng/mL Ur Oxycodone Screen Not Detected (Not Detect) ng/mL Urine Methadone Screen Not Detected (Not Detect) ng/mL Urine Fentanyl Screen Not Detected (Not Detect) Ur Barbiturates Screen Not Detected (Not Detect) Ur Phencyclidine Scrn Not Detected (Not Detect) Ur Amphetamines Screen Not Detected (Not Detect) U Benzodiazepines Scrn Not Detected (Not Detect) Urine Cocaine Screen Not Detected (Not Detect) U Marijuana (THC) Screen POSITIVE H (Not Detect) Ethyl Alcohol < 10 mg/dL C. difficile Tox B Gene (Negative) Influenza Type A (PCR) NEGATIVE (Negative) Influenza Type B (PCR) NEGATIVE (Negative) RSV RNA Qual (PCR) NEGATIVE (Negative) SARS-CoV-2 RNA (RT-PCR) NEGATIVE (Negative) 08/26/25 08/27/25 Range/Units 14:41 13:14 WBC (4.8-10.8) X10*3/uL RBC (4.20-5.50) X10*6/uL Hgb (12.0-16.0) g/dl Hct (37.0-47.0) % MCV (80.0-98.0) fL MCH (27.0-33.0) pg MCHC (31.0-35.0) g/dl RDW (11.0-16.0) % Plt Count (160-400) X10*3/uL MPV (9.4-12.3) fL Immature Gran % (Auto) (0.0-0.4) % Neut % (Auto) (45-73) % Lymph % (Auto) (20-40) % Elbert % (Auto) (2-11) % Eos % (Auto) (0-4) % Baso % (Auto) (0-2) % Lymph # (Auto) (1.2-4.9) X10*3/uL Elbert # (Auto) (0.1-1.2) X10*3/uL Eos # (Auto) (0.0-0.4) X10*3/uL Baso # (Auto) (0.0-0.2) X10*3/uL Abs Immat Gran (auto) (0.00-0.03) X10*3/uL Absolute Neuts (auto) (2.0-8.3) x10*3/uL Absolute Nucleated RBC (0.0-0.012) X10*3/uL Nucleated RBC % (auto) (0.0-0.2) /100WBC Sodium (135-145) mmol/L Potassium (3.3-5.1) mmol/L Chloride (96-108) mmol/L Carbon Dioxide (22-29) mmol/L Anion Gap (12-20) BUN (9-16) mg/dL Creatinine (0.5-1.4) mg/dL Estim Creat Clear Calc Estimated GFR POC Glucose 132 H (60-115) mg/dL Random Glucose (60-115) mg/dL Calcium (8.4-10.2) mg/dL Magnesium (1.6-2.6) mg/dL Total Bilirubin (0.0-1.0) mg/dL AST (5-31) U/L ALT (0-31) U/L Alkaline Phosphatase (39-117) U/L Total Protein (6.5-8.0) g/dL Albumin (3.5-5.0) g/dL Urine Color Urine Appearance Urine pH (5.0-9.0) Ur Specific [place] (1.005-1.025) Urine Protein (Neg-Trace) mg/dL Urine Glucose (UA) (Negative) mg/dL Urine Ketones (Negative) mg/dL Urine Blood (Negative) Urine Nitrite (Negative) Ur Leukocyte Esterase (Negative) Urine RBC (0-2) /HPF Urine WBC (0-5) /HPF Ur Squamous Epith Cells (0-2) /HPF Urine Bacteria (None Seen) Hyaline Casts (0-2) /LPF Stl C. cayetanensis PCR Not Detected (Not Detect.) Stool Rotavirus A PCR Not Detected (Not Detect.) Stl Adenov F 40/41 PCR Not Detected (Not Detect.) Stool Astrovirus (PCR) Not Detected (Not Detect.) Stool Campylobacter PCR Not Detected (Not Detect.) Stool Cryptosporidium PCR Not Detected (Not Detect.) Stl Sh Tox Pr E STEC PCR Not Detected (Not Detect.) Stool E coli O157 PCR Not applicable (Not Detect.) Stl Enterotoxigenic E PCR Not Detected (Not Detect.) Stool EPEC (PCR) Not Detected (Not Detect.) Stool EAEC (PCR) Not Detected (Not Detect.) Stl E. histolytica PCR Not Detected (Not Detect.) Stool Giardia Lamblia PCR Not Detected (Not Detect.) Stl P. shigelloides PCR Not Detected (Not Detect.) Stool Salmonella PCR Not Detected (Not Detect.) Stool Sapovirus (PCR) Not Detected (Not Detect.) Stl Shigella/EIEC PCR Not Detected (Not Detect.) St Y.enterocolitica PCR Not Detected (Not Detect.) Stool Vibrio (PCR) Not Detected (Not Detect.) Stl Vibrio cholerae PCR Not Detected (Not Detect.) Stl Norovirus GI/GII PCR Detected A (Not Detect.) Urine Opiates Screen (Not Detect) Ur Buprenorphine Scrn (Not Detect) ng/mL Ur Oxycodone Screen (Not Detect) ng/mL Urine Methadone Screen (Not Detect) ng/mL Urine Fentanyl Screen (Not Detect) Ur Barbiturates Screen (Not Detect) Ur Phencyclidine Scrn (Not Detect) Ur Amphetamines Screen (Not Detect) U Benzodiazepines Scrn (Not Detect) Urine Cocaine Screen (Not Detect) U Marijuana (THC) Screen (Not Detect) Ethyl Alcohol mg/dL C. difficile Tox B Gene NEGATIVE (Negative) Influenza Type A (PCR) (Negative) Influenza Type B (PCR) (Negative) RSV RNA Qual (PCR) (Negative) SARS-CoV-2 RNA (RT-PCR) (Negative) Independent Interpretation I performed an independent interpretation of an: EKG (sinus rhythm with sinus arrhythmia, rate 68bpm, normal ID interval and QTc, T wave inversion in leads V1-V3 seen on prior EKGs) External Record Review External record reviewed: Inpatient record, Office record and Outpatient record Discharge Plan Discharge Clinical Impression: Agitation, Korsakoff's psychosis, alcohol related, Acute UTI Patient Disposition: Xfer Inpatient Rehab Fac Transfer Details: TO: [facility], DR TIWARI ACCEPTING Instructions: Urinary Tract Infection in Women (ED) Additional Instructions: You were seen in our Emergency Department today for treatment of a behavioral health issue. It is important after your visit that you follow up with either your behavioral health provider or a primary care doctor within 7 days.? If you have trouble finding a therapist you can reach out to [address] [phone] The [employer] [facility] can be reached 7 days a week 24 hours a day.? Call [phone] to speak with someone.? Return for any worsening symptoms or concerns such as thoughts of self harm or harm to others. Please call 911 if you feel your mental health is worsening.? Patient has urinary tract infection 1st dose of antibiotic was given on 08/24/2025 she needs to receive 7 days total course of Ceftin 250 mg b.i.d. Prescriptions: No Action baclofen 20 mg Tablet 20 mg PO DAILY PRN (Reason: Back Pain) 30 Days Qty: 30 0RF trazodone 50 mg tablet 1 tab PO BEDTIME PRN (Reason: insomnia) montelukast 10 mg tablet 1 tab PO BEDTIME pravastatin 20 mg tablet 1 tab PO BEDTIME metoprolol succinate 25 mg tablet extended release 24 hr 1 tab PO DAILY albuterol sulfate [Ventolin HFA] 90 mcg/actuation HFA aerosol inhaler 2 puff INHALATION Q4H PRN (Reason: Shortness Of Breath Or Wheezing) fluticasone propion-salmeterol [Advair Diskus] 250-50 mcg/dose blister with device 1 inh INHALATION BID ondansetron HCl 4 mg tablet 4 mg PO BID PRN (Reason: nausea) omeprazole 40 mg capsule,delayed release(DR/EC) 40 mg PO DAILY@0630 acetaminophen 650 mg tablet extended release 650 mg PO Q8H PRN (Reason: Pain) ferrous sulfate 325 mg (65 mg iron) tablet,delayed release (DR/EC) 325 mg PO DAILY albuterol sulfate 2.5 mg /3 mL (0.083 %) solution for nebulization 2.5 mg inhalation Q4H PRN (Reason: Wheezing) acamprosate 333 mg tablet,delayed release (DR/EC) 666 mg PO TID Referrals: [facility] [Outside] Referral Note: [address] [place] [id number] Name,MD Ryder [Primary Care Provider, Internal Medicine] Interventions: Hart-Suicide Risk Severity Scale Last Done: 08/27/25 21:00 Print Language: South Korean
--- OUTSIDE RECORDS SUMMARY | 2025-08-18 13:44 | XMS_ITS | Encounter Summary ---
Author Organization [employer] Address [address] [facility] 7[address] [place] [address] Care Team Providers Care Community Service Representative Name Role Phone Name, Ryder HARTLEY Primary Care Provider [phone] Encounter Details Date Type Department Care Team (Late st Contact Info) Description 10/08/2023 Telephone [facility] MEDICINE [address] [place], [place] [phone] Name, MD Ryder 230 [place] [address] Social History Tobacco Use Types Packs/Day Years [...] as of this encounter Plan of Treatment Not on file documented as of this encounter Visit Diagnoses Not on filedocumented in this encounter Care Teams Community Service Representative Relationship Specialty Start Date End Date Name, MD Ryder [address] [place] [address] PCP - General Family Medicine 12/25/15 [facility] 02/09/24 documented as of this encounter
--- OUTSIDE RECORDS SUMMARY | 2025-08-18 13:44 | XMS_ITS | Encounter Summary ---
Author Organization [employer] Address [address] 7[address] [place] [address] Care Team Providers Care Clinic Scheduler Name Role Phone Name, Ryder HARTLEY Primary Care Provider [phone] Encounter Details Date Type Department Care Team (Late st Contact Info) Description 08/27/2022 Abstract [facility] MEDICINE [address] [place] [address] Name, MD Ryder 230 [place] [address] Social History Tobacco Use Types Packs/Day Years [...] Questionnaire -2 Score 0 08/28/2022 10:00 AM [place] documented as of this encounter Plan of Treatment Not on file documented as of this encounter Visit Diagnoses Not on filedocumented in this encounter Care Teams Clinic Scheduler Relationship Specialty Start Date End Date Name, MD Ryder [address] [place] [address] PCP - General Family Medicine 12/25/15 [facility] 02/09/24 documented as of this encounter
--- OUTSIDE RECORDS SUMMARY | 2025-08-18 13:44 | XMS_ITS | Encounter Summary ---
Author Organization [employer] Address [address] [facility] [address] [facility] [address] 7[address] [place] [address] Care Team Providers Care Bridge Painter Name Role Phone Name, Ryder HARTLEY Primary Care Provider [phone] Reason for Visit * Reason Onset Date Comments FYI 08/24/2023 Encounter Details Date Type Department Care Team ([facility] Contact Info) Description 08/24/2023 Telephone [facility] MEDICINE [address] [place] [address] Name, MD Ryder [address] [place] [address] FYI Social History Tobacco Use Types Packs/Day [...] the past 12 months, has t he [employer], oil or water company threatened to shut [...] RN - 08/24/2023 3:08 PM EST Noted. [facility] progress note printed, reviewed by pcp and sent to [facility]. * Telephone Encounter - Yisel Ceron - 08/24/2023 9:12 AM EST Tc from samantha calling to advise PCP pt is currently admitted at [facility] and will not be discharged dueto her conditions. Any questions/clarification, please contact samantha at [phone] (Greek) documented in this encounter Plan of Treatment Not on file documented as of this encounter Visit Diagnoses Not on filedocumented in this encounter Care Teams Bridge Painter Relationship Specialty Start Date End Date Name, MD Ryder [address] [place] [address] PCP - General Family Medicine 12/25/15 [facility] Services 02/09/24 documented as of this encounter
--- OUTSIDE RECORDS SUMMARY | 2025-08-18 13:44 | XMS_ITS | Encounter Summary ---
Author Organization [employer] Address [address] [facility] [address] [place] [address] Care Team Providers Care Tool Repairer Bench Name Role Phone Name, Ryder HARTLEY Primary Care Provider [phone] Reason for Visit * Reason Onset Date Comments Med Refill 11/24/2023 Encounter Details Date Type Department Care Team ([facility] st Contact Info) Description 11/24/2023 Refill [facility] MEDICINE 230 [place], [place] [phone] Name, MD Ryder 230 [place] [address] Social History Tobacco Use Types Packs/Day Years [...] 50 MG tablet To be sent to: [facility] [place], [place] - [address] [place] [address] documented in this encounter Plan of Treatment Not on file documented as of this encounter Visit Diagnoses Not on filedocumented in this encounter Care Teams Tool Repairer Bench Relationship Specialty Start Date End Date Name, MD Ryder 230 [place] [address] PCP - General Family Medicine 12/25/15 [facility] 02/09/24 documented as of this encounter
--- OUTSIDE RECORDS SUMMARY | 2025-08-18 13:44 | XMS_ITS | Encounter Summary ---
Author Organization [employer] Address [address] 7[address] [place] [address] Care Team Providers Care Scrub Technician Name Role Phone Name, Ryder HARTLEY Primary Care Provider [phone] Reason for Visit * Reason Comments Med Refill Encounter Details Date Type Department Care Team ([facility] Contact Info) Description 07/18/2023 Refill [facility] MEDICINE [address] [place] [address] Alison Rodriguze MD 230 [place], [place] [phone] Social History Tobacco Use Types Packs/Day Years [...] on filedocumented in this encounter Care Teams Scrub Technician Relationship Specialty Start Date End Date Name, MD Ryder 230 [place] [address] PCP - General Family Medicine 12/25/15 [facility] 02/09/24 documented as of this encounter
--- OUTSIDE RECORDS SUMMARY | 2025-08-18 13:44 | XMS_ITS | Encounter Summary ---
Author Organization [employer] Address [address] 7[address] [place] [address] Care Team Providers Care Manager Ct Name Role Phone Name, Ryder HARTLEY Primary Care Provider [phone] Reason for Visit * Reason Onset Date Comments Hospital Follow-up 06/04/2023 Encounter Details Date Type Department Care Team ([facility] st Contact Info) Description 06/04/2023 Telephone [facility] MEDICINE 230 [place], [place] [phone] Name, MD Ryder 230 [place] [address] Hospital Follow-up Social History Tobacco Use Types [...] 11:28 AM EDT [facility]. Pt was seen at [facility] and admitted on 05/29 for diabetes and hyponatremia. Pt will be discharged on 06/04. Any questions, please contact inge at [phone]. For scheduling, please contact pt at [phone] documented in this encounter Plan of Treatment Not on file documented as of this encounter Visit Diagnoses Not on filedocumented in this encounter Care Teams Manager Ct Relationship Specialty Start Date End Date Name, MD Ryder 230 [place] [address] PCP - General Family Medicine 12/25/15 [facility] Services 02/09/24 documented as of this encounter
--- OUTSIDE RECORDS SUMMARY | 2025-08-18 13:44 | XMS_ITS | Encounter Summary ---
Author Organization [employer] Address [address] 7[address] [place] [address] Care Team Providers Care Certified Flex Endoscope Reprocessor Name Role Phone Name, Ryder HARTLEY Primary Care Provider Encounter Details Date Type Department Care Team (Late st Contact Info) Description 05/25/2023 Telephone [facility] MEDICINE 230 [place] [address] Vivien Gay RN [address] [place] [address] Social History Tobacco Use Types Packs/Day Years [...] try to get pt to go to [facility] mei but if he is unable, to return call to office to call for ambulance transport. * Telephone Encounter - Ryder Monique MD - 05/25/2023 2:46 PM EDT Please call the patient, she has severe hyponatremia at [phone]. I recommend she goes to [facility] ER now fortreatment, she will need IV saline solution * Telephone Encounter - Vivien Gay RN - 05/25/2023 2:39 PM EDT Received call from [facility] Chemistry lab regarding a critical lab result. [...] on filedocumented in this encounter Care Teams Certified Flex Endoscope Reprocessor Relationship Specialty Start Date End Date Name, MD Ryder [address] [place] [address] PCP - General Family Medicine 12/25/15 [facility] 02/09/24 documented as of this encounter
--- OUTSIDE RECORDS SUMMARY | 2025-08-18 13:44 | XMS_ITS | Encounter Summary ---
Author Organization [employer] Address [address] [place] [address] Care Team Providers Care Rehab Care Assistant Name Role Phone Name, Ryder HARTLEY Primary Care Provider [phone] Reason for Visit * Reason Comments Med Refill Encounter Details Date Type Department Care Team ([facility] Contact Info) Description 01/13/2025 Refill [facility] MEDICINE 230 [place], [place] [phone] Name, MD Ryder [address] [place] [address] Social History Tobacco Use Types Packs/Day Years [...] documented as of this encounter Care Teams Rehab Care Assistant Relationship Specialty Start Date End Date Name, MD Ryder 230 [place] [address] PCP - General Family Medicine 12/25/15 [facility] Services 02/09/24 documented as of this encounter
--- OUTSIDE RECORDS SUMMARY | 2025-08-18 13:44 | XMS_ITS | Encounter Summary ---
Author Organization [employer] Address [address] [place] [address] Care Team Providers Care Hemodialysis Technician Name Role Phone Name, Ryder HARTLEY Primary Care Provider [phone] Reason for Visit * Reason Onset Date Comments Reschedule 10/08/2023 Encounter Details Date Type Department Care Team ([facility] Contact Info) Description 10/08/2023 Telephone [facility] MEDICINE [address] [place] [address] Name, MD Ryder 230 [place] [address] Reschedule Social History Tobacco Use Types Packs/Day [...] Tc from samantha [facility]. Please contact samantha at [phone] (Ukrainian) documented in this encounter Plan of Treatment Not on file documented as of this encounter Visit Diagnoses Not on filedocumented in this encounter Care Teams Hemodialysis Technician Relationship Specialty Start Date End Date Name, MD Ryder [address] [place] [address] PCP - General Family Medicine 12/25/15 [facility] Services 02/09/24 documented as of this encounter
--- OUTSIDE RECORDS SUMMARY | 2025-08-18 13:44 | XMS_ITS | Encounter Summary ---
Author Organization [employer] Address [address] [place] [address] Care Team Providers Care Hand Former Name Role Phone Name, Ryder HARTLEY Primary Care Provider [phone] Reason for Visit * Reason Comments Med Refill Encounter Details Date Type Department Care Team ([facility] Contact Info) Description 04/20/[address] [facility] MEDICINE [address] [place] [address] Name, MD Ryder [address] [place] [address] Chronic obstructive pulmonary disease, unspecified (CMS/HCC) Social [...] (HCC) documented in this encounter Care Teams Hand Former Relationship Specialty Start Date End Date Name, MD Ryder [address] [place] [address] PCP - General Family Medicine 12/25/15 [facility] 02/09/24 documented as of this encounter
--- OUTSIDE RECORDS SUMMARY | 2025-08-18 13:44 | XMS_ITS | Encounter Summary ---
Author Organization [employer] Address [address] [place] [address] Care Team Providers Care Crime Lab Technician Name Role Phone Name, Ryder HARTLEY Primary Care Provider [phone] Encounter Details Date Type Department Care Team ([facility] st Contact Info) Description 12/06/2024 Telephone [facility] MEDICINE 230 [place], [place] [phone] Name, MD Ryder 230 [place] [address] Social History Tobacco Use Types Packs/Day Years [...] 10:37 AM EDT Tc joseluis Vera from [facility] calling to report pt was discharge from [facility] against medical advice. Pt was taken by daughter or spouse. [facility] [place] protection and [place] police has been notified. Please call phone # [phone] ext [phone] for additional information documented in this encounter Plan of Treatment Not on file documented as of this encounter Visit Diagnoses Not on filedocumented in this encounter Additional Health Concerns Assessment Noted Time PHQ-9 Depression Total Score: 13 024 11:35 AM EDT documented as of this encounter Care Teams Crime Lab Technician Relationship Specialty Start Date End Date Name, MD Ryder [address] [place] [address] PCP - General Family Medicine 12/25/15 [facility] 02/09/24 documented as of this encounter
--- OUTSIDE RECORDS SUMMARY | 2025-08-18 13:44 | XMS_ITS | Encounter Summary ---
Author Organization [employer] Address [address] [facility] 7t [place] [address] Care Team Providers Care Leather Seasoner Name Role Phone Name, Ryder HARTLEY Primary Care Provider [phone] Reason for Visit * Reason Onset Date Comments Appointment Request 12/29/2022 Encounter Details Date Type Department Care Team ([facility] st Contact Info) Description 12/29/2022 Telephone [facility] MEDICINE [address] [place] [address] Name, MD Ryder 230 [place] [address] Appointment Request Social History Tobacco Use Types [...] pt is currently getting discharge from a alf. Please contact emory at [phone] documented in this encounter Plan of Treatment Not on file documented as of this encounter Visit Diagnoses Not on filedocumented in this encounter Care Teams Leather Seasoner Relationship Specialty Start Date End Date Name, MD Ryder 230 [place] [address] PCP - General Family Medicine 12/25/15 [facility] 02/09/24 documented as of this encounter
--- OUTSIDE RECORDS SUMMARY | 2025-08-18 13:44 | XMS_ITS | Clinical Summary ---
Author Organization [employer] Address [address] [place] [address] Care Team Providers Care Business Services Sales Agent Name Role Phone Name, Ryder HARTLEY Primary Care Provider [phone] Allergies Active Allergy Reactions Criticality Noted Date [...] THE MORNING 20 tablet 01/11/20 24 Active albuterol (2.5 MG/3ML) 0.083% nebulizer [...] PAIN 30 tablet 5 01/27/20 25 Active Aspirin Low Dose 81 MG [...] NAUSEA 60 tablet 5 06/19/20 25 Active Ventolin HFA 108 (90 Base) MCG/ACT inhaler INHALE 2 PUFFS BY MOUTH EVERY 4 HOURS NEEDED FOR WHEEZING OR SHORTNESS OF BREATH 18 g 3 07/30/20 25 Active Fluticasone-Salme terol 250-50 MCG/ACT aerosol powder INHALE 1 PUFF BY MOUTH TWICE DAILY, RINSE MOUTH AFTER USING. 60 each 3 08/10/20 25 Active traZODone (Desyrel) 50 MG tabletIndications :Depressive disorder TAKE 1 TABLET BY MOUTH AT BEDTIME NEEDED for SLEEP 30 tablet 5 08/10/20 25 Active traZODone (Desyrel) 50 MG tabletIndications :Depressive disorder TAKE 1 TABLET BY MOUTH EVERY DAY AT BEDTIME NEEDED FOR SLEEP 30 tablet 5 08/28/20 24 025 Discontinued Fluticasone-Salme terol 250-50 MCG/ACT aerosol powder INHALE 1 PUFF BY MOUTH TWICE DAILY 60 each 3 03/01/20 25 025 Discontinued Ventolin HFA 108 (90 Base) MCG/ACT inhaler INHALE 2 PUFFS BY MOUTH EVERY 4 HOURS NEEDED FOR WHEEZING OR SHORTNESS OF BREATH 18 g 3 03/01/20 25 025 Discontinued Active Problems Problem Noted [...] Chronic hyponatremia 07/08/2023 Hyponatremia 07/08/2023 Substance abuse ([facility]/HCC) 07/08/2023 Schizophrenia 07/08/2023 Dementia ([facility]) 07/08/2023 Chronic pain of both shoulders 07/01/2023 [...] Chronic combined systolic and diastolic hrt fail (CMS/HCC) 01/26/2023 Unsteadiness on feet 01/26/2023 Paranoid schizophrenia (CMS/[facility]) 11/20/2022 Unsp psychosis not due to a [...] he can, they're being evaluated for a CRECHE ATTENDANT. 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 Chronic anemia 08/11/2022 Hypertrophic [...] disturbance, psychotic disturbance, mood disturbance, and anxiety (CMS/[facility]) 07/08/2021 Cigarette smoker 02/18/2021 Non-cardiac chest pain [...] mellitus 11/08/2020 Stage 3a chronic kidney disease ([facility]) 2017 Urinary incontinence 03/21/2018 Assessment & Plan (10/20/2023 3:01 PM EST): Continue wearing pull ups Primary osteoarthritis of both knees 02/16/2018 Diabetic polyneuropathy 12/24/2017 Assessment & Plan (10/20/2023 2:55 PM EST): A1c is at goal, she can continue dietary management and fu with PCP in 3-4m Counseled about checking fgstks prn hypoglycemia sxs. Epigastric pain 12/24/2017 H. pylori infection 12/24/2017 Bipolar I disorder ([facility]) 12/23/2016 Type 2 diabetes mellitus with diabetic nephropat hy 12/23/2016 Chronic abdominal pain 07/23/2016 Edema 07/23/2016 Peripheral venous insufficiency 07/23/2016 Chronic obstructive pulmonar y disease with (acute) exacerbation ([facility]) 06/10/2016 Assessment & Plan (10/20/2023 3:17 PM [...] disease, unspecified 11/08/2020 12/03/2023 Bipolar disorder, unspecified ([facility]) 11/08/2020 06/17/2023 Lam hematuria 12/26/2018 10/20/2023 Gastrointestinal tube in situ ([facility]) 06/10/2016 10/20/2023 Osteoarthritis 01/21/2016 12/03/2023 Pain in limb 09/03/2011 12/03/2023 Encounters Date Type Department Care Team Description 08/10/2025 Refill [facility] [address] [place] [address] Ryder Monique MD Depressive disorder 07/28/2025 Refill [facility] [address] [place] [address] Ryder Monique MD 07/27/2025 Telephone [facility] [address] [place] [address] Ryder Monique MD Chart Prep 06/29/2025 Orders Only GENERIC EXTERNAL DATA DEPARTMENT Provider, Generic External Data 06/28/2025 Orders Only GENERIC EXTERNAL DATA DEPARTMENT Provider, Generic External Data 06/16/2025 Refill [facility] [address] [place], [place] [phone] Ryder Monique MD Chronic pain of both shoulders 06/06/2025 Orders Only [facility] External Provider, [facility] 05/24/2025 Refill [facility] [address] [place] [address] Ryder Monique MD 05/22/2025 Telephone [facility] [address] [place] [address] Ryder Monique MD Durable Medical Equipment from Last 3 Months [...] 06/17/2023 1:09 PM EDT Plan of Treatment Health Maintenance Due Date Last Done Comments CT Colonography 1953 Dental Prophylaxis 1953 Dental X-Ray: Bitewings 1953 FIT DNA/Cologuard 1953 FIT 1955 FOBT 1955 Sigmoidoscopy 1953 Diabetes: Foot Exam 1963 Eye Exam 1963 Alcohol/Substance Use Screening 1965 Hepatitis C Screening 1971 RSV Patients and Patients Aged 60 years or older (1 - Risk 50-74 years 1-dose series) 2003 Zoster Vaccines (2 of 3) 03/31/2013 02/03/2013 Mammogram 10/09/2021 10/09/2019, 11/24/2017 Dental Oral Exam [...] Procedure Name Priority Date/Time Associated Diagnosis Comments GLUCOSE, WHOLE BLOOD Routine 06/29/2025 9:[address] PELVIS WO CONTRAST Routine 06/28/2025 8:15 PM EDT XR HIP LEFT WITH PELVIS 1 VIEW Routine 06/28/2025 6:[address] CERVICAL SPINE WO CONTRAST Routine 06/28/2025 6:[address] HEAD WO CONTRAST Routine 06/28/2025 6 :16 PM EDT COVID-19 ID NOW (PECK) Routine 06/28/2025 5:13 PM EDT COMPREHENSIVE METABOLIC PANEL Routine 06/06/2025 9:25 AM [...] Relevant to Health Maintenance Results * (ABNORMAL) Glucose, Whole Blood (06/29/2025 9:43 PM EDT) Glucose, Whole Blood 153(H) 60 - 115 mg/dL [facility] Comment:METER #: [id number] 06/29/2025 9:43 PM EDT 06/29/2025 9:46 PM EDT us Generic External Data Provider LAB BLOOD ORDERAB LES Final Result [facility] [address] [place] [phone] * CT Pelvis w/o Contrast (06/28/2025 8:15 PM EDT) Anatomical Region Laterality Modality Body, Pelvis Computed Tomogra phy 06/28/2025 8:15 PM EDT Narrative 06/28/2025 8:17 PM EDT [address] [address] [address] Scan Report Signed Patient: Belia Richardson#: [id number] : 1955 Acct:[id number] Age/Sex: 70 / F ADM Date: 06/28/25 Loc: HO.ED Attending Dr: Ordering Physician: Neftali Carlson Date of Service: 06/28/25 Procedure(s): CT pelvis wo IV con Accession Number(s): [id number] cc: Name,Ryder HARTLEY; Neftali Carlson Report Number: [id number]: Total DLP = 194.00 mGy-cm Reason for Exam: left hip pain CLINICAL HISTORY: left hip pain CT pelvis without contrast Comparison: CR - XR HIP LT W PEL1V - 06/28/25 17:[address]/SR - ABDOMEN ABD_PEL_WITHOUT (ADULT) - 06/06/25 06:14 EDT Findings: Fat containing umbilical hernia. Colonic diverticulosis. 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 Bilateral acetabula protrusio deformity. Interval progressive axial migration of the left femoral head and neck through the acetabulum, protruding 1.1 cm into the posterior superior pelvis. New left medial acetabular rim fractures at this level best seen on axial series 2, image 76. Ill-defined lucencies noted along the left transcervical neck of the femur series 2, image 77 and series 6, image 129, may reflect additional sites of fracture. Similar heterogeneous/loculated bilateral presumed joint effusions of the hips, in the left appears increased in size for example on coronal measuring 6.6 x 3.5 cm. There is diffuse inflammatory changes throughout the left hip with soft tissue edema and stranding. IMPRESSION: Severe, erosive bilateral inflammatory hip arthropathy, with progressive axial migration of the left femoral head and associated hip fractures described. Clinical correlation and if indicated follow-up MRI may be helpful. This document has been electronically signed by: Alex Mason MD on 06/28/2025 20:15:55 Dictated By: Alex Mason MD Signed By: <Electronically signed by Alex Mason MD in OV> 06/28/252016 DD/ 14 TD/TT: 06/28/252014 Reinforcing Iron Worker Helper: Procedure Note Donotuseinterpreter, Image - 06/28/[address] [place] [address] [address] Scan Report Signed Patient: Marcos Richardson R#: [id number] : 1955cct:[id number] Age/Sex: 70 / FADM Date: 06/28/25 Loc: HO.ED Attending Dr: Ordering Physician: Neftali Carlson Date of Service: 06/28/25 Procedure(s): CT pelvis wo IV con Accession Number(s): [id number] cc: Name,Ryder HARTLEY; Neftali Carlson Report Number: [id number]: Total DLP = 194.00 mGy-cm Reason for Exam: left hip pain CLINICAL HISTORY: left hip pain CT pelvis without contrast Comparison: CR - XR HIP LT W PEL1V - 06/28/25 17:[address]/SR - ABDOMEN ABD_PEL_WITHOUT (ADULT) - 06/06/25 06:14 EDT Findings: Fat containing umbilical hernia. Colonic diverticulosis. 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 Bilateral acetabula protrusio deformity. Interval progressive axial migration of the left femoral head and neck through the acetabulum, protruding 1.1 cm into the posterior superior pelvis. New left medial acetabular rim fractures at this level best seen on axial series 2, image 76. Ill-defined lucencies noted along the left transcervical neck of the femur series 2, image 77 and series 6, image 129, may reflect additional sites of fracture. Similar heterogeneous/loculated bilateral presumed joint effusions of the hips, in the left appears increased in size for example on coronal measuring 6.6 x 3.5 cm. There is diffuse inflammatory changes throughout the left hip with soft tissue edema and stranding. IMPRESSION: Severe, erosive bilateral inflammatory hip arthropathy, with progressive axial migration of the left femoral head and associated hip fractures described. Clinical correlation and if indicated follow-up MRI may be helpful. This document has been electronically signed by: Alex Mason MD on 06/28/2025 20:15:55 Dictated By: Alex Mason MD Signed By: <Electronically signed by Alex Mason MD in OV> 06/28/252016 DD/ 14 TD/TT: 06/28/252014 Reinforcing Iron Worker Helper: [facility] External Provider IMG CT PROCEDURES Edited Result - Final * XR Hip left with Pelvis 1 view (06/28/2025 6:31 PM EDT) Anatomical Region Laterality Modality Lower Extremities, Hip Bilateral Radiograp hic Imaging 06/28/2025 6:31 PM EDT Narrative 06/28/2025 6:32 PM EDT [place] [address] XRay Report Signed Patient: Belia Richardson#: [id number] : 1955 Acct:[id number] Age/Sex: 70 / F ADM Date: 06/28/25 Loc: HO.ED Attending Dr: Ordering Physician: Neftali Carlson Date of Service: 06/28/25 Procedure(s): XR hip LT w PEL1V Accession Number(s): [id number] cc: Name,Ryder HARTLEY; Neftali Carlson Reason for Exam: trauma CLINICAL HISTORY: trauma 4 view, pelvis and left hip Comparison: CT/SR - ABDOMEN ABD_PEL_WITHOUT (ADULT) - 06/06/25 06:14 EDT Findings: Redemonstrated severe bilateral hip osteoarthritis with axial migration of the femoral heads, on the left with new axial migration through the pelvis, with erosive changes and bony deformities. An acute left femoral neck or acetabular fracture can not be entirely excluded. Diffuse soft tissue swelling. IMPRESSION: 1. 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 2. New axial migration left femoral head through the pelvis. Acute left hip fractures not excluded. This document has been electronically signed by: Alex Mason MD on 06/28/2025 18:31:22 Dictated By: Alex Mason MD Signed By: <Electronically signed by Alex Mason MD in OV> 06/28/251830 DD/ 30 TD/TT: 06/28/251830 Reinforcing Iron Worker Helper: Procedure Note Donotuseinterpreter, Image - 06/28/2025 [place] [address] XRay Report Signed Patient: Marcos Richardson R#: [id number] : 1955cct:[id number] Age/Sex: 70 / FADM Date: 06/28/25 Loc: HO.ED Attending Dr: Ordering Physician: Neftali Carlson Date of Service: 06/28/25 Procedure(s): XR hip LT w PEL1V Accession Number(s): [id number] cc: Name,Ryder HARTLEY; Neftali Carlson Reason for Exam: trauma CLINICAL HISTORY: trauma 4 view, pelvis and left hip Comparison: CT/SR - ABDOMEN ABD_PEL_WITHOUT (ADULT) - 06/06/25 06:14 EDT Findings: Redemonstrated severe bilateral hip osteoarthritis with axial migration of the femoral heads, on the left with new axial migration through the pelvis, with erosive changes and bony deformities. An acute left femoral neck or acetabular fracture can not be entirely excluded. Diffuse soft tissue swelling. IMPRESSION: 1. 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 2. New axial migration left femoral head through the pelvis. Acute left hip fractures not excluded. This document has been electronically signed by: Alex Mason MD on 06/28/2025 18:31:22 Dictated By: Alex Mason MD Signed By: <Electronically signed by Alex Mason MD in OV> 06/28/251830 DD/ 30 TD/TT: 06/28/251830 Reinforcing Iron Worker Helper: [facility] External Provider IMG XR PROCEDURES Edited Result - Final * CT Cervical Spine w/o Contrast (06/28/2025 6:18 PM EDT) Anatomical Region Laterality Modality Spine, C-spine Computed Tomogra phy 06/28/2025 6:18 PM EDT Narrative 06/28/2025 6:20 PM EDT [place] [address] CT Scan Report Signed Patient: Belia Richardson#: [id number] : 1955 Acct:[id number] Age/Sex: 70 / F ADM Date: 06/28/25 Loc: HO.ED Attending Dr: Ordering Physician: Neftali Carlson Date of Service: 06/28/25 Procedure(s): CT cervical spine wo IV con Accession Number(s): [id number] cc: Ryder Monique MD; Neftali Carlosn Report Number: [id number]: Total DLP = 0.00 mGy-cm Reason for Exam: trauma CLINICAL HISTORY: trauma CT cervical spine without contrast Comparison: CT/REG/SR - CT CERVICAL SPINE WO IV CON - 03/09/24 21:59 EDT Findings: Straightening of the cervical lordosis. Osteopenia. Multilevel spondylosis with osteophytosis, uncovertebral hypertrophy, facet arthropathy and degenerative disc disease. Ankylosis along the posterior elements in the left C2-C3. Anterolisthesis at C3-C4 and C7-T1. Cervical diffuse idiopathic skeletal hyperostosis. Diffuse spinal canal narrowing, for example moderate to severe at C4-C5 and C5-C6 with severe bilateral foraminal stenoses. No acute fractures or dislocations. Soft tissues of the neck are normal. Minimal emphysema. IMPRESSION: No acute findings. Additional findings as described. This document has been electronically signed by: Alex Mason MD on 06/28/2025 18:18:47 Dictated By: Alex Mason MD Signed By: <Electronically signed by Alex Mason MD in OV> 06/28/251818 DD/ 17 TD/TT: 06/28/251817 Reinforcing Iron Worker Helper: Procedure Note Donotuseinterpreter, Image - 06/28/[address] [place] [address] [address] Scan Report Signed Patient: Marcos Richardson R#: [id number] : 1955cct:[id number] Age/Sex: 70 / FADM Date: 06/28/25 Loc: HO.ED Attending Dr: Ordering Physician: Neftali Carlson Date of Service: 06/28/25 Procedure(s): CT cervical spine wo IV con Accession Number(s): [id number] cc: Name,Ryder HARTLEY; Neftali Carlson Report Number: [id number]: Total DLP = 0.00 mGy-cm Reason for Exam: trauma CLINICAL HISTORY: trauma CT cervical spine without contrast Comparison: CT/REG/SR - CT CERVICAL SPINE WO IV CON - 03/09/24 21:59 EDT Findings: Straightening of the cervical lordosis. Osteopenia. Multilevel spondylosis with osteophytosis, uncovertebral hypertrophy, facet arthropathy and degenerative disc disease. Ankylosis along the posterior elements in the left C2-C3. Anterolisthesis at C3-C4 and C7-T1. Cervical diffuse idiopathic skeletal hyperostosis. Diffuse spinal canal narrowing, for example moderate to severe at C4-C5 and C5-C6 with severe bilateral foraminal stenoses. No acute fractures or dislocations. Soft tissues of the neck are normal. Minimal emphysema. IMPRESSION: No acute findings. Additional findings as described. This document has been electronically signed by: Alex Mason MD on 06/28/2025 18:18:47 Dictated By: Alex Mason MD Signed By: <Electronically signed by Alex Mason MD in OV> 06/28/251818 DD/ 17 TD/TT: 06/28/251817 Reinforcing Iron Worker Helper: us [facility] External Provider IMG CT PROCEDURES Edited Result - Final * CT Head w/o Contrast (06/28/2025 6:16 PM EDT) Anatomical Region Laterality Modality Head, Neck Computed Tomogra phy 06/28/2025 6:16 PM EDT Narrative 06/28/2025 6:17 PM EDT [address] [address] [address] Scan Report Signed Patient: Belia Richardson#: [id number] : 1955 Acct:[id number] Age/Sex: 70 / F ADM Date: 06/28/25 Loc: HO.ED Attending Dr: Ordering Physician: Neftali Carlson Date of Service: 06/28/25 Procedure(s): CT head/brain wo IV con Accession Number(s): [id number] cc: Name,Ryder HARTLEY; eNftali Carlson Report Number: [id number]: Total DLP = 0.00 mGy-cm Reason for Exam: trauma CLINICAL HISTORY: trauma CT head without contrast Comparison: CT/SR - CT HEAD WITHOUT IV CONTRAST - 03/09/24 21:59 EDT Findings: Scattered subcortical and periventricular hypoattenuation, likely in keeping with chronic small vessel ischemic disease. Parenchymal volume loss with compensatory prominence of the ventricles and CSF spaces. No acute territorial infarction, intracranial hemorrhage, midline shift or hydrocephalus. Empty sella is demonstrated, nonspecific. Right mastoid and middle ear effusion. The orbits are within normal limits. No skull fracture. IMPRESSION: 1. No acute intracranial abnormality. 2. Additional findings as described. This document has been electronically signed by: Alex Mason MD on 06/28/2025 18:16:56 Dictated By: Alex Mason MD Signed By: <Electronically signed by Alex Mason MD in OV> 06/28/251816 DD/ 15 TD/TT: 10/02/25 1816 Reinforcing Iron Worker Helper: Procedure Note Donotuseinterpreter, Image - 06/28/[address] [address] [address] Scan Report Signed Patient: Marcos Richardson#: [id number] : 3Acct:[id number] Age/Sex: 70 / FADM Date: 06/28/25 Loc: HO.ED Attending Dr: Ordering Physician: Neftali Carlson Date of Service: 06/28/25 Procedure(s): CT head/brain wo IV con Accession Number(s): [id number] cc: Name,Ryder HARTLEY; Neftali Carlson Report Number: [id number]: Total DLP = 0.00 mGy-cm Reason for Exam: trauma CLINICAL HISTORY: trauma CT head without contrast Comparison: CT/SR - CT HEAD WITHOUT IV CONTRAST - 03/09/24 21:59 EDT Findings: Scattered subcortical and periventricular hypoattenuation, likely in keeping with chronic small vessel ischemic disease. Parenchymal volume loss with compensatory prominence of the ventricles and CSF spaces. No acute territorial infarction, intracranial hemorrhage, midline shift or hydrocephalus. Empty sella is demonstrated, nonspecific. Right mastoid and middle ear effusion. The orbits are within normal limits. No skull fracture. IMPRESSION: 1. No acute intracranial abnormality. 2. Additional findings as described. This document has been electronically signed by: Alex Mason MD on 06/28/2025 18:16:56 Dictated By: Alex Mason MD Signed By: <Electronically signed by Alex Mason MD in OV> 06/28/251816 DD/ 15 TD/TT: 06/28/251815 Reinforcing Iron Worker Helper: [facility] External Provider IMG CT PROCEDURES Edited Result - Final * COVID-19 ID NOW (PECK) (06/28/2025 5:13 PM EDT) IDNOW SERIAL# [id number] [facility] COVID-19 TEST Negative Negative [facility] COVID-19 NOTE See Note [facility] Comment: Results are for the identification of SARS-CoV2 RNA. TheSARS-CoV2 RNA is generally detectable in respiratory samplesduring the acute phase of infection. Positive results areindicative of the presence of SARS-CoV-2 RNA; clinicalcorrelation with patient history and other diagnosticinformation is necessary to determine patient infectionstatus. Positive results do not rule out bacterial infectionor co- infection with other viruses.Testing facilities within the [facility] and itsterritories are required to report all positive results tothe appropriate public health authorities.Negative results should be treated as presumptive and, ifinconsistent with clinical signs and symptoms or necessaryfor patient management, should be tested with differentauthorized or cleared molecular tests. Negative results donot preclude SARS-CoV2 RNA infection and should not be usedas the sole basis for patient management decisions. Negativeresults should be considered in the context of a patient'srecent exposures, history and the presence of clinical signsand symptoms consistent with COVID-19.This test has been authorized by the FDA under an EmergencyUse Authorization (EUA) for use by authorized laboratories.Testing performed on the [employer] NOW utilizing NAAT. 06/28/2025 5:13 PM EDT 06/28/2025 5:20 PM EDT us Generic External Data Provider LAB MOLECULAR DELPHINE GNOSTICS ORDERABLES Final Result [facility] [address] [place] [phone] * (ABNORMAL) Comprehensive Metabolic Panel (06/06/2025 9:25 AM EDT) Sodium 126(L) 135 - 145 mmol/L [facility] Potassium 4.0 3.3 - 5.1 mmol/L [facility] Chloride 97 96 - 108 mmol/L [facility] Carbon Dioxide 19(L) 22 - 29 mmol/L [facility] Anion Gap 14 12 - 20 [facility] Urea Nitrogen (BUN) 18(H) 9 - 16 mg/dL [facility] Creatinine, Serum 0.63 0.5 - 1.4 mg/dL [facility] Creatinine Clr Calc Pharmacy 82.7 [facility] Comment:Provided height and weight: 154.94 cm,90.718 kg.eGFR (calculated from the MDRD study equation) and eCrCl(calculated from the Cockcroft-Gault equation) are based ondifferent parameters and may not yield comparable results.If eCrCl result is absurd, please check patient'sheight/weight. Estimated Glomerular Filt Rate >60 [facility] Comment:Chronic Kidney Disea se: Estimated GFR < 60 mL/min/1.86e0Umyibx Kidney Disease: Estimated GFR < 15 mL/min/1.73m2 Glucose 120(H) 60 - 115 mg/dL [facility] Calcium 8.3(L) 8.4 - 10.2 mg/dL [facility] Bilirubin, Total 0.4 0.0 - 1.0 mg/dL [facility] Aspartate Amino Transferase 19 5 - 31 U/L [facility] Alanine Aminotransferase <6 0 - 31 U/L [facility] Total Protein 6.5 6.5 - 8.0 g/dL [facility] Albumin Level 2.8(L) 3.5 - 5.0 g/dL [facility] Alkaline Phosphatase 103 39 - 117 U/L [facility] 06/06/2025 9:25 AM EDT 06/06/2025 9:29 AM EDT us Generic External Data Provider LAB BLOOD ORDERAB LES Final Result [facility] [address] [place] [phone] * OBSX1 (06/06/2025 7:42 AM EDT) OBS1 NEGATIVE NEGATIVE [facility] 06/06/2025 7:42 AM EDT 06/06/2025 7:44 AM EDT us Generic External Data Provider LAB BLOOD ORDERAB LES Final Result [facility] [address] [place] [phone] * CT Abdomen Pelvis w/o Contrast (06/06/2025 7:26 AM EDT) Anatomical Region Laterality Modality Body, Pelvis, Abdomen Computed T omography 06/06/2025 7:26 AM EDT Narrative 06/06/2025 7:27 AM EDT [address] [address] [address] Scan Report Signed Patient: Belia Richardson#: [id number] : 1955 Acct:[id number] Age/Sex: 70 / F ADM Date: 06/06/25 Loc: HO.ED Attending Dr: Ordering Physician: Seven Ross MD Date of Service: 06/06/25 Procedure(s): CT abdomen pelvis wo IV con Accession Number(s): [id number] cc: Seven Ross MD; Name,Ryder HARTLEY Report Number: [id number]: Total DLP = 440.00 mGy-cm Reason for Exam: ? constipation ? colitis CLINICAL HISTORY: ? constipation ? colitis CT abdomen and pelvis without contrast Comparison: CT/REG/[place]/SR - CT ABDOMEN PELVIS WITHOUT THEN WITH [...] throughout the colon. No findings of diverticulitis. Ugwn-uy-qzcxrtoe stool throughout the colon. No dilated small [...] fluid seen medial to the acetabulum bilaterally, lnho-thbiidh-wfoe-right. This was previously more pronounced on the [...] in OV> 06/06/25725 DD/ 5 TD/TT: 06/06/25725 Reinforcing Iron Worker Helper: Procedure Note Donotuseinterpreter, Image - 06/06/[address] [place] [address] [address] Scan Report Signed Patient: Marcos Richardson R#: [id number] : [id number] Age/Sex: 70 / FADM Date: 06/06/25 Loc: HO.ED Attending Dr: Ordering Physician: Seven Ross MD Date of Service: 06/06/25 Procedure(s): CT abdomen pelvis wo IV con Accession Number(s): [id number] cc: Seven Ross MD; Name,Ryder HARTLEY Report Number: [id number]: Total DLP = 440.00 mGy-cm Reason for Exam: ? constipation ? colitis CLINICAL HISTORY: ? constipation ? colitis CT abdomen and pelvis without contrast Comparison: CT/REG/[place]/SR - CT ABDOMEN PELVIS WITHOUT THEN WITH [...] throughout the colon. No findings of diverticulitis. Oent-ci-cfgksyzh stool throughout the colon. No dilated small [...] fluid seen medial to the acetabulum bilaterally, ngqc-euibmrl-xdhu-right. 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 LDL-C is now calculated using the Diego-Abdi calculation, which is a validated novel method providing better accuracy than the Friedewald equation in the estimation of LDL-C. Diego SS et al. GABI. 2013;310(19): 2147-7929 (http://education.[employer].com/faq/JNY759) Non-HDL Cholesterol 93 <130 mg/dL (calc) [facility] Comment: For patients with diabetes plus 1 major ASCVD risk factor, treating to a non-HDL-C goal of <100 mg/dL (LDL-C of <70 mg/dL) is considered a therapeutic option. Triglycerides 114 <150 mg/dL [facility] 05/26/2022 10:2 8 AM EDT us Ryder Monique MD LAB BLOOD ORDERABLES Final Resul t [facility] [address] [place] [address], * 3D BILATERAL DIAGN MAMMO 1 (10/09/2019 [...] EST Recommended 10 year follow up us Lupe Provider HEALTH MAINTENANCE Final Result from Last 3 Months or Most Recently Relevant to Health Maintenance Insurance [employer] (O D-SNP) [facility] - [facility] Advance Directives Documents on File Type Date Recorded 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
--- OUTSIDE RECORDS SUMMARY | 2025-08-18 13:44 | XMS_ITS | Data Portability ---
Author Organization [employer], [facility] Address [address] [place] [address] Care Team Providers Care Tax Agent Name Role Phone NAME, BRITTANI Primary Care Provider [phone] HIM ELISA OTHER Assessment Encounter Date Assessment Date Assessment LastModified by Organization Details LastModified Time 07/01/2023 07/01/2023 I have reviewed and agree with the assessment and plan as documented by the brick chimney builder. I provided real time medical direction for this encounter and was immediately available to provide additional phone based assistance as needed. History as noted by brick chimney builder. Pt with history of dementia and hyponatremia in past. Pt's can cleaner called for visit today as pt has had nausea with recurrent episodes of NB vomiting for 2-3 days with poor po intake. She has been acting normally. Pt also has a history of refusing to go to the hospital for evaluation as well. Subgrade Tester reports that the pt's only complaint at this time is nausea. No report of any abdominal pain, diarrhea or fevers. On exam, vitals are normal. Pt alert, no distress. Abdomen soft and non tender. POC BMP with Na 120. Creatinine and glucose normal. Impression: Pt with 2-3 of nausea and recurrent vomiting and poor po intake, found to have severe hyponatremia of 120 on POC BMP. Subgrade Tester is unable to obtain IV access at this time. Pt becomes upset and agitated when she is told that she needs to go to the ED for evaluation and treatment of her severe hyponatremia. Subgrade Tester calls for 911 ambulance transport and pt will be transported to the [facility] ED. I call an expect to the ED layer off as well. [email or web address] Not available 07/01/2023 15:36:28 02/10/2024 02/10/2024 I provided real -time medical direction via phone for this encounter and was available for additional phone-based assistance as needed. I have reviewed and agree with the Assessment and Plan as documented by the Subgrade Tester. Patient given the opportunity to ask questions. Our service contacted for an assessment of: Chronic pain As per above, patient with hx of chronic pain. No new or worsening red S&S. No loss of function. No new gait abnl. No new neurological signs, symptoms or deficits. No grossly swollen joints with erythema and no localizing symptoms. Per brick chimney builder on the scene, VSS, non-toxic. Neuro grossly intact. No CKI and not on blood thinners. Has not taken NSAID today Impression: Chronic FREDI pain Plan: Toradol 30 mg IM times one. F/u with PCP. Red flags to be discussed as to when to seek a higher level of care. We discussed the diagnostic uncertainty of home visits and the risk associated with this. In this case, the patient and I felt this to be an acceptable and reasonable amount of risk given the benefit of avoiding an ED visit. We discussed the need to seek care urgently/emerge ntly in the setting of any new or worsening serious symptoms [email or web address] Not available 02/10/2024 12:02:39 08/05/2024 08/05/2024 I have reviewed and agree with the assessment and plan as documented by the brick chimney builder. I provided real time medical direction for this encounter and was immediately available to provide additional phone based assistance as needed. History as noted by brick chimney builder. Pt with history of schizophrenia, dementia, CHF, ETOH dependence, back pain, DM2, HTN and hyponatremia. Pt's partner states that the pt has been recently more agitated with poor po intake and worsening mood swings . Reportedly, pt's partner had called 911 twice over the last week but responding medics declined to transport the pt to the ED. Pt currently is cooperative and according to her partner, is at her baseline. She denies any complaints currently. Unclear if pt has been drinking ETOH today but did drink yesterday. No abdominal pain or vomiting. Of note, brick chimney builder up loads a physician signed state form stating that the pt does not have capacity to make any medical decisions for herself. On exam, pt cooperative, no distress. Vitals ok, Temp 99.3. Neuro exam non focal, abdomen soft and non tender. Impression: Currently, pt is cooperative but according to her partner, she has had poor po intake with recent changes in her mental status with agitation and worsening mood swings . Etiology of reported recent behavior changes unclear, but given reported poor po intake, I feel pt should undergo a thorough medical clearance and psychiatric evaluation and this is d/w the pt and her partner. Pt has been found to not have capacity to make medical decisions. Medic is instructed to contact 911 to transport pt to the ED for evaluation. Pt is being transported via 911 ambulance to the [facility] ED and I call a pt expect to the ED layer off as well. [email or web address] Not available 08/05/2024 14:09:54 Plan of Treatment Reminders Order Date Submit Date Provider Last Modified By Organization Details Last Modified Time Details Appointments None recorded. Lab BMP, serum or plasma [email or web address], [address] [place] [address] 3 15:19:30 Referral None recorded. Procedures None recorded. Surgeries None recorded. Imaging None recorded. Medication Orders ketorolac 30 mg/mL (1 mL) injection solution 2023 024 [email or web address] Not available 4 12:01:20 Patient TargetsNo targets recorded. Patient InstructionsNo instructions recorded. Reason for Referral None Reported. Results Created Date Observation Date Name Description Value Unit Range Abnormal Flag Note LastModifiedBy Organization Detail LastModifiedTime 07/01/2007/01/2023 BMP, serum or plasm a BUN 18 Not Available [facility] [address], [address] [place] [address] 07/01/2023 15:14:05 07/01/2007/01/2023 BMP, serum or plasm a CI- 92 Not Available [facility] [address], [address] 07/01/2023 15:14:05 07/01/2007/01/2023 BMP, serum or plasm a CRE 1.1 Not Available [facility] [address], [address] 07/01/2023 15:14:05 07/01/20 23 07/01/2023 BMP, serum or plasm a GLU 109 Not Available [facility] [address], [address] 07/01/2023 15:14:05 07/01/2019 0707/01/2023 BMP, serum or plasm a K+ 4.8 Not Available [facility] [address], [address] 07/01/2023 15:14:05 07/01/20 23 07/01/2023 BMP, serum or plasm a Na+ 120 Not Available [facility] [address], [address] 07/01/2023 15:14:05 07/01/20 23 07/01/2023 BMP, serum or plasm a tCO2 17 Not Available [facility] [address], [address] 07/01/2023 15:14:05 Result Notes None recorded. Medical Equipment None Reported. Allergies Allergen ID Allergen Name Allergen Category Reaction Reaction Severity Criticality Documentation Date Start Date Code Code System Note Provider Name and Address Organization Details Recorded Time 45584 Paxil medicatio n Not available Not available Not available 08/04/2024 99909 8 RxNorm Not Available [facility] - production 17:03:45 Medications Name Sig Start Date Stop Date Status Note LastModified by Organization Details LastModified Time multivitamin tablet TAKE 1 TABLET BY MOUTH EVERY DAY WITH FOOD active Not Available Not Available No t Available fluticasone 250 mcg-salmeter ol 50 mcg/dose blistr powdr for inhalation INHALE 1 PUFF BY MOUTH TWICE DAILY active Not Available Not Available No t Available prednisone 10 mg tablet TOME CUATRO TABLETAS POR V A ORAL TODOS LOS D active Not Available Not Available No t Available doxycycline hyclate 100 mg capsule TOME MARGARET C PSULA DOS VECES AL D A POR 7 D active Not Available Not Available No t Available ipratropium 0.5 mg-albuterol 3 mg (2.5 mg base)/3 mL nebulization soln INHALE 1 AMPULE USING A NEBULIZER EVERY 6 HOURS active Not Available Not Available No t Available albuterol sulfate 2.5 mg/3 mL (0.083 %) solution for nebulization INHALE 1 AMPULE USING A NEBULIZER EVERY 4 TO 6 HOURS NEEDED active Not Available Not Available No t Available trazodone 50 mg tablet TAKE 1 TABLET BY MOUTH EVERY DAY AT BEDTIME NEEDED FOR SLEEP active Not Available Not Available No t Available azithromycin 250 mg tablet TAKE 1 TABLET ORALLY DAILY FOR 4 DAYS START ON DAY 2 OF THERAPY active Not Available Not Available No t Available senna 8.6 mg tablet TAKE 1 TABLET BY MOUTH TWICE DAILY NEEDED FOR CONSTIPATIO N active Not Available Not Available No t Available ondansetron HCl 4 mg tablet TAKE 1 TABLET BY MOUTH TWICE DAILY NEEDED FOR NAUSEA active Not Available Not Available No t Available prednisone 20 mg tablet TOME DOS TABLETAS POR V A ORAL TODOS LOS D POR 5 D active Not Available Not Available N ot Available thiamine HCl (vitamin B1) 100 mg tablet TAKE 1 TABLET BY MOUTH EVERY DAY active Not Available Not Available No t Available sulfamethoxa zole 800 mg-trimethop rim 160 mg tablet TOME MARGARET TABLETA DOS VECES AL D A active Not Available Not Available No t Available omeprazole 40 mg capsule,mina yed release TAKE 1 CAPSULE BY MOUTH DAILY ON ON AN EMPTY STOMACH active Not Available Not Available No t Available aspirin 81 mg tablet,delay ed release TAKE 1 TABLET BY MOUTH EVERY DAY active Not Available Not Available No t Available acetaminophe n ER 650 mg tablet,exten ded release TAKE 1 TABLET BY MOUTH EVERY 8 HOURS NEEDED FOR PAIN. DO NOT BREAK, CRUSH, DISSOLVE OR CHEW active Not Available Not Available No t Available baclofen 20 mg tablet TAKE 1 TABLET BY MOUTH DAILY NEEDED FOR BACK PAIN active Not Available Not Available No t Available famotidine 20 mg tablet TAKE 1 TABLET BY MOUTH TWICE DAILY active Not Available Not Available No t Available folic acid 1 mg tablet TAKE 1 TABLET BY MOUTH EVERY DAY active Not Available Not Available No t Available montelukast 10 mg tablet TAKE 1 TABLET BY MOUTH DAILY IN THE EVENING active Not Available Not Available No t Available pravastatin 20 mg tablet TAKE 1 TABLET BY MOUTH DAILY AT BEDTIME active Not Available Not Available N ot Available metoprolol succinate ER 25 mg tablet,exten ded release 24 hr TAKE 1 TABLET BY MOUTH DAILY IN THE MORNING active Not Available Not Available No t Available cefuroxime axetil 500 mg tablet TOME MARGARET TABLETA DOS VECES AL D A POR 7 D active Not Available Not Available No t Available Ventolin HFA 90 mcg/actuatio n aerosol inhaler INHALE 2 PUFFS BY MOUTH EVERY 4 HOURS active Not Available Not Available No t Available acamprosate 333 mg tablet,delay ed release TAKE 2 TABLETS BY MOUTH THREE TIMES DAILY DO NOT BREAK, CRUSH, DISSOLVE OR CHEW active Not Available Not Available No t Available Flovent HFA 220 mcg/actuatio n aerosol inhaler INHALE 1 PUFF TWICE DAILY active Not Available Not Available No t Available quetiapine 50 mg tablet TAKE 1 TABLET BY MOUTH THREE TIMES DAILY active Not Available Not Available Not Available FeroSul 325 mg (65 mg iron) tablet TAKE 1 TABLET BY MOUTH ONCE DAILY WITH BREAKFAST active Not Available Not Available No t Available Incruse Ellipta 62.5 mcg/actuatio n powder for inhalation INHALE 1 PUFF EVERY DAY AT THE SAME TIME IN THE MORNING active Not Available Not Available No t Available Vitals Date Recorded Body temperature Body weight Respiratory rate Body height Heart rate Oxygen saturation Systolic And Diastolic Provider Name and Address Organization Details Last Updated DateTime 4 98 [degF] 66386.3 2 g 18 /min 167.64 cm 77 /min 100 % 132/77 mm[Hg] Not Available [facility] 4 11:59:57 Date Recorded Body temperature Heart rate Oxygen saturation Respiratory rate Systolic And Diastolic Provider Name and Address Organization Details Last Updated DateTime 3 97.1 [degF] 87 /min 97 % 16 /min 118/79 mm[Hg] Not Available [facility] production 3 15:02:06 Date Recorded Body temperature Oxygen saturation Respiratory rate Heart rate Systolic And Diastolic Provider Name and Address Organization Details Last Updated DateTime 4 99.3 [degF] 96 % 16 /min 78 /min 105/59 mm[Hg] Not Available [facility] production 4 12:56:23 Social History None recorded. Functional Status None recorded. Mental Status None recorded. Family History Nothing Reported. Medical History No medical history recorded. Gynecological HistoryNo gynecological history recorded. Obstetrics History GPAL:G 0 P 0 0 0 0 Past Encounters Encounter ID Performer Location Encounter Start Date Encounter Closed Date Diagnosis/Indication Diagnosis SNOMED-CT Code Diagnosis ICD10 Code Diagnosis IMO Codes Diagnosis Note [id number] Angus Minaya MD Main - [address] [address] 07/01/2023 15:01:57 07/06/2023 00:20:51 Acute hyponatremia 1846519 E87.1 [id number] Kelsey Retana MD Main - [address] [address] 02/10/2024 11:59:53 02/10/2024 22:16:50 Osteoarthritis 990725883 M19.90 [id number] Angus Minaya MD Main - [facility] [address] [place] [address] 08/05/2024 12:56:20 08/05/2024 16:00:59 Altered mental status 090337691 R41.82 Health Concerns Section Related Observation LastModified by Organization Detai ls LastModified Time None Recorded Concern Status LastModified by Organization Details LastModified Time None Recorded Advance Directives Directive None Recorded Payers Insurance Date Sequence Insurance Name Policy Number Policy Monet Covered Member ID Monet Member ID Guarantor Name 08/05/2024 1 [facility] - DOS ON OR AFTER 2022 - DUAL ELIGIBLE - [facility] OPT[facility] AND ONE CARE (MEDICARE REPLACEMENT/AD VANTAGE - HMO) Belia Carlisle [id number] Belia Carlisle Notes Date Note Type Note Provider Name and Address Organization Details Recorded Time 07/01/2023 text/html ROS as noted in the HPI This was a supervised home visit with brick chimney builder Mark Joseph. HPI: Care Provider with documented health care proxy reports patient with 3-4 days o vomiting and chronic abdominal pain.Vomit is liquid with phlegm and patient with poor PO intake for days. Patient with shortness of breath and is using albuterol frequently. Juanjo reports that in the past patient has declined transport and can be irritated with him for calling. Care Provider wants patient to be transported and he does have documented Health Care Proxy dated 08/29/2020 due to patient advancing dementia status. .................. .................. .................. .................. .................. .................. .................. ............... CRC Nursing Assessment: Comments: no further info needed, Usman KIRK .................. .................. .................. .................. .................. .................. .................. ............... Subgrade Tester Note From Mark Joseph: Pts health care proxy, states that pt has been having N/V for the past 2-3 days with no oral intake. Denies any loose stools denies any fever denies any pain. On scene vs taken, and POC labs done and pt noted to be hyponatremic [facility] was called advised pt to go to ED which she agreed 911 was called and report given to EMS and cleared. .................. .................. .................. .................. .................. .................. .................. ............... Disposition: Fulfilled Angus Minaya MD [address] [facility],[address], [place], [address], [employer] 07/01/2023 15:36:47 02/10/2024 text/html HPI: Member is a 68 yo, female, Maltese speaking [facility] and reported by her Partner as anxious, fearful and more confused upon arrival home. He asks for a visit tomorrow AM as member is calming down and resting, and would like her check. Member has hx of Dementia, Bipolar 1 disorder, chronic hyponatremia, CHF, COPD, CAD, diabetes, dementia, HTN, schizophrenia, ETOH and cigarette smoker, alcohol and substance abuse. Sob and clean since 01/19 when taken [place] [facility] for confusion and aggressive behaviors. Her partner had asked for Prison placement and changed his mind recently due to member general behaviors and general condition improving while at [facility] . Member has hx of aggression and behaviors and has bene declining steadily. .................. .................. .................. .................. .................. .................. .................. ............... CRC Nurse Triage Notes (Antonio Leo): Comments: Reviewed HPI -Goals of care, post rehab d/c wellness visit 02/08 unable to reach, r/s and will attempt 02/09 .................. .................. .................. .................. .................. .................. .................. ............... Subgrade Tester Note From Nimisha Benitez: Patient complaint of all over body pain today. Pt is looking for assistance with the pain. Pt. states pain has been happening for the last x2 weeks after being discharged from a facility. Pt states that pain has gotten to the point where she is not able to fully sleep throughout a night. Patient denies n/v/d. Non focal neuro exam performed, vitals taken and wnl for the patient. No signs of trauma and or hemorrhage. It lung sounds clear audibly. benign abdominal exam. Positive pulses throughout all extremity with no LE edema. [facility] consulted Pt given 30 mg or IM ketorolac. Pt instructed to call emergency services is any signs and symptoms occur which are marked as red flags. Pt educated on red flags. Pt. Advised to follow up with pcp. .................. .................. .................. .................. .................. .................. .................. ............... Disposition: Fulfilled Kelsey Retana MD [address] [place] [address],[address], [place], [address], [employer] 02/10/2024 12:02:58 08/05/2024 text/html ROS as noted in the HPI This was a supervised home visit with brick chimney builder Bean Hogue. HPI: Member is a 69 YO, primarily Maltese speaking female with PMHx: Dementia, CHF, ETOH, back pain, Schizophrenia, cigarette smoker, Type 2 DM, HTN and hyponatremia. Member lives with her partner Mr. Juanjo Montelongo who is her HCP and reports member has been refusing the eat during the day and manages to eat a small meal often in evenings, able to drink fluids (water, juice and had one beer today). Member has been agitated at times upon getting up and he called the ambulance twice this week, however upon evaluation EMT's declined to take her to ER for evaluation despite his request. Member as described as stable and at her base line today ( described as argumentative and at times paces the apartment for while . Juanjo is concerned with poor appetite and worsening mood swings. He refused a new referral to 1 today and stated [facility] AM if possible to make sure she stays stable over the weekend. .................. .................. .................. .................. .................. .................. .................. ............... CRC Nurse Triage Notes (Ana Lilia Mcmillan): Chief Complaints: Weakness, Anxiety, Fatigue PMH: COPD/Asthma, Hypertension, Coronary Artery Disease, Cigarette Smoker, Diabetes Mellitus Type 2, Schizophrenia, Substance Use Disorder Comments: HPI reviewed- NE .................. .................. .................. .................. .................. .................. .................. ............... Subgrade Tester Note From Bean Hogue: This visit is for a 69-year-old female with a history, including, but not limited to [place], hypertension, type two diabetes, substance abuse, congestive heart failure, hyponatremia, schizophrenia, and Korsakoff syndrome. The patient significant other and alleged healthcare proxy requested a visit to address concerns that the patient has not been eating or drinking normally. Upon arrival to the apartment, they were open alcohol containers in every room. The significant other greeted me at the door and appeared intoxicated, noting smell of alcohol on his breath and red watery eyes. This man was hostile and aggressive, both on the phone and in person. This man tells me that he is her healthcare proxy, but is unable to provide any documentation. He request that she go to the hospital for emergency department evaluation. Patient denies any complaints and states that she does not want to go to the hospital. The significant other was able to provide paperwork from a physician stating that she is not able to make medical decisions for herself. A picture of this document was uploaded.The patient presents awake and alert to person and place, unknown baseline. all vital signs are reasonably stable and she has afebrile. Non focal neurological exam. Lungs are clear throughout auscultation. Abdomen is soft, nontender, nondistended. No lower extremity edema.[facility] contacted and agrees ambulance transport to the emergency department is indicated. 911 initiated for Police and EMS response. Patient went willingly to [facility] emergency department. SBAR to [facility]. .................. .................. .................. .................. .................. .................. .................. ............... [facility] Consulted: Angus Minaya .................. .................. .................. .................. .................. .................. .................. ............... Disposition: Elier Minaya MD [address] [facility],[address], [place], [address], [employer] 08/05/2024 14:15:11 OBGyn Episode No OBEpisode recorded.
--- OUTSIDE RECORDS SUMMARY | 2025-08-18 13:44 | XMS_ITS | Clinical Summary ---
Author Organization [facility] Address [address] [place] [address] Phone Care Team Providers Care Film Writer Name Role Phone Unavailable Primary Care Provider [...] age to complete this topic Insurance ([id number]) [place] [address] ([id number]) ALICIA MONTOYA [phone]
--- OUTSIDE RECORDS SUMMARY | 2025-08-18 13:45 | XMS_ITS | Encounter Summary ---
Author Organization [employer] Address [address] [place] [address] Care Team Providers Care Mobile Developer Name Role Phone Name, Ryder HARTLEY Primary Care Provider [phone] Encounter Details Date Type Department Care Team (Late st Contact Info) Description 03/09/2023 Abstract [facility] [address] [place] [address] Name, MD Ryder [address] [place] [address] Social History Tobacco Use Types Packs/Day Years [...] on file documented as of this encounter Procedures Procedure Name Priority Date/Time Associated Diagnosis Comments COLONOSCOPY Routine 10/18/2017 12:01 PM EST documented in this encounter Results * Colonoscopy (10/18/2017 12:01 PM EST) Colonoscopy Normal Normal Narrative Heather Schneider - 10/18/2017 12:01 PM EST Recommended 10 year follow up Historical Provider HEALTH MAINTENANCE Final Result documented in this encounter Visit Diagnoses Not on filedocumented in this encounter Care Teams Mobile Developer Relationship Specialty Start Date End Date Name, MD Ryder [address] [place] [address] PCP - General Family Medicine 12/25/15 [facility] 02/09/24 documented as of this encounter
--- OUTSIDE RECORDS SUMMARY | 2025-08-18 13:45 | XMS_ITS | Data Portability ---
Author Organization [facility], Main Office Address [address] [facility], [facility] [address] [place] [address] Care Team Providers Care Quality Reviewer Name Role Phone [facility]) OTHER NAME, BRITTANI Primary Care Provider [phone] Assessment Encounter Date Assessment Date Assessment LastModified by Organization Details LastModified Time 09/10/2023 09/10/2023 seen by psych on 09/09; Patient can benefit from: Behavior mgmt; Psychiatric meds. Not available 09/10/2023 12:57:35 09/14/2023 09/14/2023 seen by psych on 09/09; Patient can benefit from: Behavior mgmt; Psychiatric meds. Not available 09/15/2023 01:26:24 09/17/2023 09/17/2023 seen by psych on 09/09; Patient can benefit from: Behavior mgmt; Psychiatric meds. Not available 09/17/2023 12:56:20 09/21/2023 09/21/2023 seen by psych on 09/09; Patient can benefit from: Behavior mgmt; Psychiatric meds. Not available 09/21/2023 14:11:29 09/22/2023 09/22/2023 09/20/23 Labs: Na 140- K 5.1-Bun 38- Cr 1.3- wbc 6.1- hgb 12.6 -Plt 242 Not available 09/22/2023 08:57:40 Plan of Treatment Reminders Order Date Submit Date Provider Last Modified By Organization Details Last Modified Time Details Appointments None record ed. Lab None record ed. Referral None record ed. Procedures None record ed. Surgeries None record ed. Imaging None record ed. Medication Orders None record ed. Patient TargetsNo targets recorded. Patient InstructionsNo instructions recorded. Reason for Referral None Reported. Problems Name Problem SNOMED Code Status Onset Date Resolution Date Notes Provider Name and Address Organization Details Recorded Time Bipolar disorder 82504915 Completed 202007/08/2023 jessica banguraia WEN RODRIGES, VICTORINA [address], [address], [place], [address], [facility] 3 14:40:00 Chronic obstruct phuc pulmonar y disease 62491812 Completed 202007/08/2023 VICTORINA DANIEL [address], [address], [place], [address], [facility] 3 14:42:19 Coronary arterios clerosis 18356585 Completed 202007/08/2023 VICTORINA DANIEL [address], [address], [place], [address], [facility] 3 14:40:00 Type 2 diabetes mellitus 63673038 Completed 202007/08/2023 VICTORINA DANIEL [address], [address], [place], [address], [facility] 3 14:44:52 Essentia l hyperten bryn 11411986 Completed 202007/08/2023 VICTORINA DANIEL [address], [address], [place], [address], [facility] 3 14:45:01 Osteoart hritis 213081737 Completed 202007/08/2023 VICTORINA DANIEL [address], [address], [place], [address], [facility] 3 14:40:00 Obstruct phuc sleep apnea syndrome 97432833 Completed 202007/08/2023 VICTORINA DANIEL [address], [address], [place], [address], [facility] 3 14:40:00 Mixed anxiety and depressi ve disorder 725176340 Completed 202007/08/2023 VICTORINA DANIEL [address], [address], [place], [address], [facility] 3 14:40:00 Fall Completed 202007/08/2023 VICTORINA DANIEL [address], [address], [place], [address], [facility] 3 14:40:00 Hyperlip idemia 44581540 Completed 202007/08/2023 VICTORINA DANIEL [address], [address], [place], [address], [facility] 3 14:40:00 Constipa tion 88045294 Completed 202007/08/2023 VICTORINA DANIEL [address], [address], [place], [address], [facility] 3 14:40:00 Harmful pattern of use of alcohol 39094635 Completed 202007/08/2023 VICTORINA DANIEL [address], [address], [place], [address], [facility] 3 14:42:32 Abdomina l pain 38592741 Completed 202007/08/2023 VICTORINA DANIEL [address], [address], [place], [address], [facility] 3 14:40:00 Non-card iac chest pain 204230781 Completed 202007/08/2023 VICTORINA DANIEL [address], [address], [place], [address], [facility] 3 14:40:00 Cigarett e smoker 51083706 Completed 202007/08/2023 VICTORINA DANIEL [address], [address], [place], [address], [facility] 3 14:42:30 Recurren t falls 079909886 Completed 202007/08/2023 VICTORINA DANIEL [address], [address], [place], [address], [facility] 3 14:40:00 Asthma 754255482 Completed 202007/08/2023 VICTORINA DANIEL [address], [address], [place], [address], [facility] 3 14:40:00 Pain of right knee region 55331563978 4105 Completed 202007/08/2023 VICTORINA DANIEL [address], [address], [place], [address], [facility] 3 14:40:00 Hyponatr emia 04573486 Completed 202207/08/2023 VICTORINA DANIEL [address], [address], [place], [address], [facility] 14:40:00 Congesti ve heart failure 44523383 Completed 202207/08/2023 VICTORINA DANIEL [address], [place], [address], [facility] 3 14:45:04 Diabetes mellitus 14112565 Completed 202207/08/2023 VICTORINA DANIEL [address], [address], [place], [address], [facility] 14:40:00 Dementia 13027829 Completed 202207/08/2023 VICTORINA DANIEL [address], [address], [place], [address], [facility] 3 14:40:00 Schizoph katey 29644361 Completed 202207/08/2023 VICTORINA DANIEL [address], [address], [place], [address], [facility] 3 14:44:58 Bipolar I disorder 865878313 Active 2022 WEN RODRIGES, [employer]ACH[employer]PERATOR[address] , [address], [place], [address], [facility] 3 14:40:52 Chronic hyponatr emia 27702057 Active 2022 WEN RODRIGES, [address], [address], [place], [address], [facility] 3 14:41:03 Chronic obstruct phuc pulmonar y disease 36191997 Active 2022 WEN RODRIGES, [address] , [address], [place], [address], [facility] 3 14:42:19 Cigarett e smoker 76465141 Active 2022 WEN RODRIGES [address], [address], [place], [address], [facility] 3 14:42:30 Harmful pattern of use of alcohol 88482225 Active 2022 WEN RODRIGES, [address] , [address], [place], [address], [facility] 3 14:42:32 Substanc e abuse 35524838 Active 2022 CALE DANIEL[address] , [address], [place], [address], [facility] 3 14:44:29 Type 2 diabetes mellitus 20504060 Active 2022 WEN RODRIGES [address] , [address], [place], [address], [facility] 3 14:44:52 Schizoph katey 74611132 Active 2022 WEN RODRIGES, [facility] [address], [place], [address], [facility] 3 14:44:58 Essentia l hyperten bryn 45460247 Active 2022 WEN RODRIGES, [address], [facility] [address], [place], [address], [facility] 3 14:45:01 Congesti ve heart failure 28179692 Active 2022 WEN RODRIGES, [address], [address], [place], [address], [facility] 3 14:45:03 Disorder of gastroin testinal tract 555884975 Active 2022 WEN RODRIGES [address], [address], [place], [address], [facility] 3 14:59:11 History of back pain 16454856508 4102 Active 2022 WEN RODRIGES [address], [facility] [address], [place], [address], [facility] 3 15:13:02 Metaboli c encephal opathy 62055537 Active 2022 WEN RODRIGES [address], [facility] [address], [place], [address], [facility] 3 12:40:52 Acute kidney injury 02330287 Active 2022 WEN RODRIGES [address], [facility] [address], [place], [address], [facility] 3 13:27:10 Problem Notes None recorded. Medical Equipment None Reported. Allergies Allergen ID Allergen Name Allergen Category Reaction Reaction Severity Criticality Documentation Date Start Date Code Code System Note Provider Name and Address Organization Details Recorded Time Paxil medicatio n Not available Not available Not available 11/08/2020 77528 8 RxNorm VAN GARSIA NP [address] [place] [address], [facility] [address], [place], [address], [facility] 1 17:14:23 Medications Name Sig Start Date Stop Date Status Note LastModified by Organization Details LastModified Time trazodone 50 mg tablet TAKE 1 TABLET BY MOUTH EVERY DAY AT BEDTIME active Not Available Not Available No t Available quetiapine 50 mg tablet TAKE 1 TABLET BY MOUTH TWICE DAILY active Not Available Not Available No t Available Vitals None Recorded Social History Question Answer Notes LastModified by Organizat ion Details LastModified Time Tobacco Smoking Status Current Every Day Smoker VAN GARSIA NP [address] [facility], [address], [place], [address], [facility] 02/17/2021 11:40:57 Do You Have An Advance Directive? Yes Full Code Information not available 02/17/2021 How Much Tobacco Do You Chew? None Information not available 11/16/2020 Do You Have A Medical Power Of Long Term Care Phlebotomist? Yes HCP Invoked Information not available 11/16/2020 How Much Tobacco Do You Smoke? 0.5 PPD Information not available 02/17/2021 Sex: Unknown Functional Status Question Answer Note LastModified by Organizat ion Details LastModified Time What is your level of alcohol consumption? Moderate marijuana use/ a joint a day Information not available 02/17/2021 Do you or have you ever used smokeless tobacco? Never used smokeless tobacco Information not available 11/16/2020 Do you or have you ever used e-cigarettes or vape? Never used electronic cigarettes Information not available 11/16/2020 Mental Status None recorded. Family History Nothing Reported Notes:n/c Medical History No medical history recorded. Gynecological HistoryNo gynecological history recorded. Obstetrics History GPAL:G 0 P 0 0 0 0 Immunizations Vaccine Type Date Status Note Provider Nam e and Address Organization Details Recorded Time Influenza, split virus, quadrivalent, preservative 1 completed Bonnierajendra Telles [facility], [facility] 02/27/2021 11:01:54 Pneumococcal conjugate PCV 13 1 completed Posterous [facility], [facility] 02/27/2021 11:02:09 COVID-19, mRNA, LNP-S, PF, 100 mcg/0.5mL dose or 50 mcg/0.25mL dose 1 completed Bonnie Telles [facility], [facility] 02/27/2021 11:02:20 Past Encounters Encounter ID Performer Location Encounter Start Date Encounter Closed Date Diagnosis/Indication Diagnosis SNOMED-CT Code Diagnosis ICD10 Code Diagnosis IMO Codes Diagnosis Note [id number] VAN GARSIA NP [address] [place] [address] 11/08/2020 17:09:15 11/12/2020 11:33:07 Bipolar disorder 58906790 F31.9 seroquel 50 mg bidpsych prn Chronic ob structive pulmonary disease 22086389 J44.9 albuterol mdi q 4 hr prnflovent 220 bidsingula ir 10 mg daily Coronary arteriosclerosis 85475422 I25.10 asa 81 mg daily Essential hypertension 05598687 I10 metoporolo l succ 25 mg dailylasix 20 mg dailymonit or bp Obstructiv e sleep apnea syndrome 50396130 G47.33 respirator y referral Osteoarthritis 695641593 M19.90 folic acid 1. mg dailythiam ine 100 mg dailytylen ol 650 mg q12 hr Type 2 deny betes mellitus 45331168 E11.9 metformin 500 mg dailylispr o sliding scalepoc glucose Mixed anxi ety and depressive disorder 190417470 F41.8 citalopram 40 mg dailyclona zapam 1 mg bid Fall W19.XXXA baclofen 20 mg prnPT OT eval and treatfall precaution s Hyperlipidemia 42279419 E78.5 pravastati n 20 mg daily Constipation 07195927 K5 9.00 senna 8.6 mg bid [id number] Maribell Marion MD [address] [place] [address] 11/12/2020 13:06:14 11/18/2020 10:16:40 Bipolar disorder 92980572 F31.89 Mood labile. Continue seroquel 50 mg BID, citalopram 40 mg qd, and clonazapam 1 mg qd. Psych consult. Chronic ob structive pulmonary disease 36554432 J43.8 Wheezy today. Will increase flovent 220 mcg from 1 puff BID to 2 puffs BID and schedule albuterol 2 puffs QID, as well as continuing q 4 hrs prn.Contin ue singulair 10 mg qd.Monitor resp function. Coronary arteriosclerosis 76178021 I25.10 No recent sxs. Continue meds as above and ASA 81 mg qd. Monitor for sxs. Essential hypertension 87161036 I10 BP had been good, but elevated SBP today, likely due to agitation. Continue metoprolol 25 mg qd and lasix 20 mg qd.monitor bp Obstructiv e sleep apnea syndrome 04837434 G47.33 Doesn't use CPAP, needs sleep study when able. Osteoarthritis 175901707 M15.0 See aboveConti nue APAP 650 mg q8 hrs.Monito r sxs. Type 2 deny betes mellitus 12160297 E11.9 Sugars in good control on metformin 500 mg dailylispr o sliding scalepoc glucose Fall W19.XXXA WIth hx of falls due to intoxicati on. Per family mostly stays in bed and drinks. Doesn't walk anymore.Stafford s been refusing PT, but will continue to try. Needs PT/OT for strengthen ing, balance, gait training, safety and function.C ontinue fall precaution s. Hyperlipidemia 27025873 E78.49 Continue pravastati n 20 mg qd. Monitor labs yearly. Constipation 95183845 K5 9.09 Continue senna 8.6 mg bid Harmful pa ttern of use of alcohol 53571459 F10.27 Very confused today. HCP invocation form from 08/2020 scanned into chart, from when she was at [facility], states wernicke's . Likely a component of agitation. Will add trazadone 12.5 mg q 6 hrs prn agitation. Already on meds for bipolar, may need to increase quetiapine . Continue folic acid 1. mg qd and thiamine 100 mg qd. HCP invoked. Psych consult. Pain of ri ght shoulder joint 9618832378 4678802 M25.511 Imaging inpt showed only OA. But now with pain so severe she is screaming continuall y. WIll repeat x-ray and start tramadol 50 mg q 6 hrs prn. Continue APA and baclofen 20 mg qd. Cigarette smoker 1672242 7 F17.210 continue nicotine patch [id number] MYCHAL HUMMEL [address] [place] [address] rd [place] [address] 11/15/2020 09:39:10 11/18/2020 11:01:45 Bipolar disorder 00686117 F31.9 seroquel 50 mg bidpsych prn Osteoarthritis 933782395 M19.90 folic acid 1. mg dailythiam ine 100 mg dailytylen ol 650 mg q12 hr [id number] VAN LAZOMYCHAL GALICIA ABDI THOMPSON [address] [place] [address] 11/20/2020 07:42:18 11/21/2020 15:17:13 Bipolar disorder 24588496 F31.9 seroquel 50 mg bidpsych prn Fall W19.XXXA baclofen 20 mg prnPT OT eval and treatfall precaution s [id number] VAN LAZOMYCHAL GALICIA [address] [address] 11/22/2020 07:47:03 11/26/2020 11:15:55 Harmful pattern of use of alcohol 33985748 F10.10 no symptoms of DT'savoid further alcohol abuse Bipolar disorder 0485108 4 F31.9 seroquel 50 mg bidpsych prn Chronic ob structive pulmonary disease 67405170 J44.9 albuterol mdi q 4 hr prnflovent 220 bidsingula ir 10 mg daily Constipation 13712958 K5 9.00 senna 8.6 mg bid Coronary arteriosclerosis 89782762 I25.10 asa 81 mg daily Fall W19.XXXA baclofen 20 mg prnPT OT eval and treatfall precaution s Hyperlipidemia 34978831 E78.5 pravastati n 20 mg daily Mixed anxi ety and depressive disorder 535920919 F41.8 citalopram 40 mg dailyclona zapam 1 mg bid Obstructiv e sleep apnea syndrome 63769320 G47.33 respirator y referral Osteoarthritis 530267133 M19.90 folic acid 1. mg dailythiam ine 100 mg dailytylen ol 650 mg q12 hr Type 2 deny betes mellitus 03412058 E11.9 metformin 500 mg dailylispr o sliding scalepoc glucose [id number] VAN LAZOMYCHAL GALICIA [address] [address] 02/17/2021 07:44:27 02/20/2021 13:20:17 Abdominal pain 86958253 R10.9 monitor bm's zofran for nausea Harmful pa ttern of use of alcohol 93355604 F10.10 no symptoms of DT'savoid further alcohol abuse Bipolar disorder 2555605 4 F31.9 seroquel 50 mg bidpsych prn Chronic ob structive pulmonary disease 43748945 J44.9 albuterol mdi q 4 hr prn combivent q4hr prn flovent 220 bid singulair 10 mg daily Constipation 20088896 K5 9.00 senna 8.6 mg bid prn Coronary arteriosclerosis 78993139 I25.10 asa 81 mg daily Essential hypertension 46527834 I10 metoprolol succ 50 mg daily lasix 20 mg daily monitor bp Fall 5881617 W19.XXXA baclofen 20 mg PT OT eval and treat fall precaution s Hyperlipidemia 55175246 E78.5 pravastati n 20 mg daily Mixed anxi ety and depressive disorder 611841045 F41.8 citalopram 40 mg dailyclona zapam 1 mg bid Obstructiv e sleep apnea syndrome 01299068 G47.33 respirator y referral Osteoarthritis 155014246 M19.90 folic acid 1. mg dailythiam ine 100 mg dailytylen ol 650 mg q12 hr Type 2 deny betes mellitus 33727283 E11.9 metformin 500 mg dailylispr o sliding scalepoc glucose [id number] MD ABDI Coon JAY [address] [place] [address] [place] [address] 02/18/2021 16:50:32 02/20/2021 15:01:21 Harmful pattern of use of alcohol 07452059 F10.27 Not as confused as when she was here last time. Continue folic acid 1. mg qd and thiamine 100 mg qd. HCP invoked. Psych consult. Chronic ob structive pulmonary disease 51464436 J43.8 Wheezy today. Flovent not on current med list, will restart 220 mcg 2 puffs BID and schedule albuterol 2 puffs QID, as well as continuing q 4 hrs prn. Continue singulair 10 mg qd. Monitor resp function. Bipolar disorder 8254284 4 F31.89 Mood labile. Continue seroquel 50 mg BID, citalopram 40 mg qd, and clonazapam 1 mg qd. Psych consult. Essential hypertension 45887658 I10 Has had elevated SBP on and off since admission. Will increase metoprolol from 25 mg qd to 50 mg qd and continue lasix 20 mg qd. Monitor BP and labs. Coronary arteriosclerosis 21514434 I25.10 No recent sxs. Continue meds as above and ASA 81 mg qd. Monitor for sxs. Obstructiv e sleep apnea syndrome 60278203 G47.33 Doesn't use CPAP, needs sleep study when able. Osteoarthritis 752827763 M15.0 Restart tramadol as above. Continue APAP 650 mg q8 hrs. Monitor sxs. Type 2 deny betes mellitus 06356297 E11.9 Sugars in good control on metformin 500 mg qd. Hasn't needed SSI at all, but will leave ordered just in case. Monitor accuchecks x 1 week, then d/c if stable. Hyperlipidemia 82818600 E78.49 Continue pravastati n 20 mg qd. Monitor labs yearly. Constipation 37503757 K5 9.09 Bowel meds prn. Monitor Bowel function. Cigarette smoker 1573198 7 F17.210 Says she's smoking less, no patch on at this time. Abdominal pain 48291185 R10.84 Unclear etiology. Only things I can see that weren't checked in ED were amylase and lipas.e Will check those in AM. Although pancreas should have looked inflamed on CT if this was pancreatit is. Continue zofran for nausea. Will also add famotidine 20 mg BID. Mixed anxi ety and depressive disorder 278709612 F41.8 Continue meds as above. Recurrent falls 78748154 2 R29.6 WIth hx of falls due to intoxicati on. Per family mostly stays in bed and drinks. Needs PT/OT for strengthen ing, balance, gait training, safety and function. Continue fall precaution s. Non-cardia c chest pain 534244966 R07.89 No evidence of cardiac etiology. No ass. sxs. Seems like chest wall pain. Was on tramadol 50 mg q 6 hrs prn last time she was here. Will restart this. Monitor sxs. [id number] MYCHAL HUMMEL [address] [place] [address] rd [place] [address] 02/24/2021 12:42:14 02/26/2021 15:57:17 Chronic obstructive pulmonary disease 92912105 J44.9 albuterol mdi q 4 hr prn combivent q4hr prn flovent 220 bid singulair 10 mg daily Bipolar disorder 1798104 4 F31.9 seroquel 50 mg bid AIMs 0 psych prn [id number] VAN GARSIA NP ABDI THOMPSON [address] [facility] [place] [address] 02/26/2021 08:08:31 03/04/2021 14:05:30 Chronic obstructive pulmonary disease 29308782 J44.9 albuterol mdi q 4 hr prn combivent q4hr prn flovent 220 bid singulair 10 mg daily Bipolar disorder 3545963 4 F31.9 seroquel 50 mg bid AIMs 0 psych prn Abdominal pain 15256882 R10.9 monitor bm's zofran for nausea Constipation 71289892 K5 9.00 senna 8.6 mg bid prn Coronary arteriosclerosis 21953320 I25.10 asa 81 mg daily Essential hypertension 49834582 I10 metoprolol succ 50 mg daily lasix 20 mg daily monitor bp Fall 0999861 W19.XXXA baclofen 20 mg PT OT eval and treat fall precaution s Hyperlipidemia 97742051 E78.5 pravastati n 20 mg daily Mixed anxi ety and depressive disorder 660245795 F41.8 citalopram 40 mg dailyclona zapam 1 mg bid Obstructiv e sleep apnea syndrome 21697556 G47.33 respirator y referral Osteoarthritis 040401186 M19.90 folic acid 1. mg dailythiam ine 100 mg dailytylen ol 650 mg q12 hr Recurrent falls 48746526 2 R29.6 PT OT eval and treat fall precaution s frequent safety checks Type 2 deny betes mellitus 00743241 E11.9 metformin 500 mg dailylispr o sliding scalepoc glucose Cigarette smoker 8718079 7 F17.210 cessation outpatient Harmful pa ttern of use of alcohol 30676720 F10.10 no symptoms of DT'savoid further alcohol abuse [id number] VAN GARSIA NP ABDI THOMPSON [address] [facility] [place] [address] 07/09/2021 08:33:20 07/11/2021 15:27:24 Asthma 722493565 J45.909 singulair 10 mg dailyflove nt 220 bidalbuter ol mdi q4 hrprn Pain of ri ght knee region 2286280264 02907 M25.561 tramadol 50 mg q6hr prn Bipolar disorder 6822762 4 F31.9 seroquel 25 mg bid AIMs 0 psych prn Chronic ob structive pulmonary disease 71469631 J44.9 albuterol mdi q 4 hr prn flovent 220 bid singulair 10 mg daily Cigarette smoker 2616938 7 F17.210 cessation outpatient Constipation 70313544 K5 9.00 senna 8.6 mg bid prn Coronary arteriosclerosis 69406736 I25.10 asa 81 mg daily Essential hypertension 52647464 I10 metoprolol succ 50 mg daily lasix 10 mg daily monitor bp Hyperlipidemia 54042219 E78.5 pravastati n 20 mg daily Mixed anxi ety and depressive disorder 879773445 F41.8 citalopram 40 mg dailyclona zapam 0.5 mg bid prnseroque l 25 mg bid Obstructiv e sleep apnea syndrome 21284713 G47.33 respirator y referral Osteoarthritis 639576538 M19.90 folic acid 1. mg dailythiam ine 100 mg dailytylen ol 650 mg q12 hr Type 2 deny betes mellitus 69837238 E11.9 metformin 500 mg dailylispr o sliding scalepoc glucose Recurrent falls 11232835 2 R29.6 PT OT eval and treat fall precaution s frequent safety checks [id number] VICTORINA DANIEL [facility] on [address] [place] [address] 07/08/2023 08:17:23 07/12/2023 15:29:36 Cigarette smoker 40624979 F17.210 offered and refused nicotine patch Harmful pa ttern of use of alcohol 64609624 F10.10 reports drinking 5 beers dailyhypon atremia suspected to be related to beer potomaniae ncouraged abstinence refer to SUDs counseling .MVI dailythiam ine 100 mg dailyfolic acid 1 mg dailyacamp rosate 666 mg TID Chronic ob structive pulmonary disease 23704160 J44.9 montekulas t 10 mg at bedtimealb uterol inhaler prnflutica sone/advai r diskus 250-50 mcg BIDalbuter ol sulfate 2.5 mg/3ml neb tx prnincruse ellipta 62.5 mcg daily Chronic hyponatremia 503 [address]2379 E87.1 seen and eval by renal- CT scan mild urinary distention ; bladder scan no retention1 21-given sodium tablets in acute carestabil ized in acute care.now on 1500 cc fluid retention Congestive heart failure 43178045 I50.9 metoprolol ER 25 mg dailymonit or for clinical changeswei ght prn Essential hypertension 88630461 I10 metoprolol er 25 mg dailyASA [address]/EC dailymonit or BP/HR prn Schizophrenia 77571620 F 20.9 seroquel 50 mg TIDtrazodo ne 50 mg at bedtime prnmonitor for mood and behavior changes. Type 2 deny betes mellitus 22435248 E11.9 not currently on medsdiet controlled monitor daily TID for 1 week then monthly and prn Bipolar I disorder 76923 6008 F31.9 seroquel 50 mg TIDtrazodo ne 50 mg at bedtime prnmonitor for mood and behavior changespsy ch prn Disorder o f gastrointestinal tract 349374350 K92.9 famotidine 20 mg BIDomepraz ole 40 mg daily at 630amzofra n 4 mg BID prn Coronary arteriosclerosis 38405881 I25.10 hx of hyperlipid emiapravas tatin 20 mg dailyasa 81 mg daily Mixed anxi ety and depressive disorder 162700675 F41.8 seroquel 50 mg TIDtrazodo ne 50 mg at bedtime prnmonitor for mood and behavior changespsy ch prn. History of back pain 311 [id number] 86226 Z87.39 baclofen 20 mg prnPT/OT eval [id number] Adelia Diego MD [facility] on [address] [place] [phone] 3 07/14/2023 05:15:04 07/20/2023 10:15:02 Asthenia [id number] R53.1 PT/OTwill monitor and support as needed Chronic ob structive pulmonary disease 42874823 J41.0 Advair 250-50:; one puff bidIncruse Ellipta 62.5: one inhalation dailyalbut maryam HFA: 2 puffs q4h prnmontelu kast 10 mg dailywill monitor Chronic hyponatremia 503 92053 E87.1 will monitorflu id restrictio n 1500 mL daily Harmful pa ttern of use of alcohol 86915681 F10.10 acamprosat e 666 mg tidmultidi sciplinary support for sobrietyth iamine 100 mg dailyMVA dailyfolic acid 1 mg dailywill monitor Essential hypertension 15933465 I10 metoprolol ER 25 mg dailywill monitor Schizoaffe ctive disorder 30035816 F25.9 quetiapine 50 mg tidtrazodo ne 50 mg at hs prnwill monitor Chronic pain 15990701 G8 9.29 APAP 975 mg tidbaclofe n 20 mg daily prnPT/OTwi ll monitor Type 2 deny betes mellitus 62282024 E11.9 no meds at this timeASA 81 mg dailywill monitor Chronic di astolic heart failure 172161045 I50.32 metoprolol ER 25 mg dailywill monitor Hyperlipidemia 94257019 E78.49 pravastati n 20 mg dailywill monitor Gastroesop hageal reflux disease without esophagitis 824621769 K21.9 omeprazole 40 mg dailywill monitor [id number] VICTORINA DANIEL [facility] on [address] [place] [phone] 3 07/20/2023 08:24:15 07/29/2023 15:02:49 Cigarette smoker 48316499 F17.210 smoking cessationo ffered and refused nicotine patch Harmful pa ttern of use of alcohol 96867287 F10.10 reports drinking 5 beers dailyhypon atremia suspected to be related to beer potomaniae ncouraged abstinence refer to SUDs counseling .MVI dailythiam ine 100 mg dailyfolic acid 1 mg dailyacamp rosate [address] TID Chronic ob structive pulmonary disease 36248848 J44.9 montekulas t 10 mg at bedtimealb uterol inhaler prnflutica sone/advai r diskus 250-50 mcg BIDalbuter ol sulfate 2.5 mg/3ml neb tx prnincruse ellipta 62.5 mcg daily Chronic hyponatremia 503 05023 E87.1 will repeat labs for 07/21consi breanna added supplement .seen and eval by renal- CT scan mild urinary distention ; bladder scan no retention1 21-given sodium tablets in acute carestabil ized in acute care.now on 1500 cc fluid retention Congestive heart failure 36015688 I50.9 metoprolol ER 25 mg dailymonit or for clinical changeswei ght prn Essential hypertension 18004497 I10 metoprolol er 25 mg dailyASA [address]/EC dailymonit or BP/HR prn Schizophrenia 26878727 F 20.9 seroquel 50 mg TIDtrazodo ne 50 mg at bedtime prnmonitor for mood and behavior changes. Type 2 deny betes mellitus 67315174 E11.9 not currently on medsdiet controlled monitor daily TID for 1 week then monthly and prn Bipolar I disorder 11471 6008 F31.9 seroquel 50 mg TIDtrazodo ne 50 mg at bedtime prnmonitor for mood and behavior changespsy ch prn Disorder o f gastrointestinal tract 641896145 K92.9 famotidine 20 mg BIDomepraz ole 40 mg daily at 630amzofra n 4 mg BID prn Coronary arteriosclerosis 63465971 I25.10 hx of hyperlipid emiapravas tatin 20 mg dailyasa 81 mg daily Mixed anxi ety and depressive disorder 080711294 F41.8 seroquel 50 mg TIDtrazodo ne 50 mg at bedtime prnmonitor for mood and behavior changespsy ch prn. History of back pain 367 8092426 42448 Z87.39 baclofen 20 mg prnPT/OT eval [id number] VICTORINA DANIEL [facility] on [address] [place] [address] 07/27/2023 09:38:21 07/30/2023 08:20:32 Chronic obstructive pulmonary disease 52992430 J44.9 07/27: stable, no resp concerns. montekulas t 10 mg at bedtimealb uterol inhaler prnflutica sone/advai r diskus 250-50 mcg BIDalbuter ol sulfate 2.5 mg/3ml neb tx prnincruse ellipta 62.5 mcg daily Congestive heart failure 12156508 I50.9 07/27: stable, there is no sob, chest doscomfort etc.metopr olol ER 25 mg dailymonit or for clinical changeswei ght prn Schizophrenia 93059690 F 20.9 07/27: mood is stable.ser oquel 50 mg TIDtrazodo ne 50 mg at bedtime prnmonitor for mood and behavior changes. Bipolar I disorder 40833 6008 F31.9 07/27: mood has been stable. Nursing reports that she can be impatient at times but is easily redirected .seroquel 50 mg TIDtrazodo ne 50 mg at bedtime prnmonitor for mood and behavior changespsy prn [id number] VICTORINA DANIEL [facility] on [address] [place] [phone] 3 07/28/2023 07:19:15 07/30/2023 08:48:03 Chronic obstructive pulmonary disease 62731538 J44.9 continues: montekulas t 10 mg at bedtimealb uterol inhaler prnflutica sone/advai r diskus 250-50 mcg BIDalbuter ol sulfate 2.5 mg/3ml neb tx prnincruse ellipta 62.5 mcg dailyfollo w up with PCP Congestive heart failure 11714523 I50.9 continues; metoprolol ER 25 mg dailymonit or for clinical changeswei ght prnfollow up with PCP Schizophrenia 72818886 F 20.9 07/27: mood is stable.ser oquel 50 mg TIDtrazodo ne 50 mg at bedtime prnfollow up with outpatient as needed Bipolar I disorder 36303 6008 F31.9 continuese roquel 50 mg TIDtrazodo ne 50 mg at bedtime prnmonitor for mood and behavior changesfol low up outpatient as needed Harmful pa ttern of use of alcohol 51201884 F10.10 sobriety encouraged on discharge. MVI dailythiam ine 100 mg dailyfolic acid 1 mg dailyacamp rosate [address] TID Disorder o f gastrointestinal tract 237389045 K92.9 famotidine 20 mg BIDomepraz ole 40 mg daily at 630amzofra n 4 mg BID prnfollow up with PCP Essential hypertension 89174957 I10 continueme toprolol er [address] mg [address]/EC dailyfollo w up with PCP [id number] [facility] on [address] [place] [phone] 3 08/31/2023 12:53:14 09/02/2023 16:12:35 Metabolic encephalopathy 36317433 G93.41 see hpiresolve d in acute care Acute kidney injury 1466 9001 N17.9 Baseline Cr 0.311/28: serum Cr 1.4receive d IVF in acute caremonito r labs prn Harmful pa ttern of use of alcohol 80994367 F10.10 MVI dailythiam ine 100 mg dailyfolic acid 1 mg dailyacamp rosate 666 mg TID Bipolar I disorder 84224 6008 F31.9 seroquel 50 mg BIDtrazodo ne 50 mg at bedtime prnmonitor for mood and behavior changesfol low up outpatient as needed Chronic ob structive pulmonary disease 63394205 J44.9 montekulas t 10 mg at bedtimealb uterol inhaler prnAlbuter ol Sulfate 2.5 MG/3ML) 0.083% QID prnincruse ellipta 62.5 mcg dailyfollo w up with PCP Schizophrenia 22291717 F 20.9 seroquel 50 mg TIDTrazado ne 50 mg at bedtime. Type 2 deny betes mellitus 29107598 E11.9 diet controlled Pain of sh [place] region 93200218 M25.519 Hx of OAchronic pain with masstoday she report left shoulder pain unresolved with tylenollim ited movement, unable to raise arm over head.pain with abductionm eloxicam 15 mg addedtrama dol 25 mg every 8 hours as needed.PT/ OT eval [id number] Adelia Diego MD [facility] on [address] [place] [phone] 3 09/03/2023 05:24:25 10/06/2023 15:06:36 Schizophrenia 45233631 F20.89 trazodone 50 mg at [facility] prnwill monitor Chronic pain 68538556 G8 9.29 APAP 650 mg q12h prnbaclofe n 20 mg daily prntramado l 25 mg q6h prnmeloxic am 15 mg dailyPT/OT will monitor Chronic ob structive pulmonary disease 94396377 J41.0 Incruse Ellipta 62.5: one inhalation dailyalbut maryam updraft q4h prnalbuter ol-budeson florecita 90-80: 2 puffs q4h prnmontelu kast 10 mg dailywill monitor Essential hypertension 72956145 I10 metoprolol ER 25 mg dailywill monitor Harmful pa ttern of use of alcohol 55905736 F10.10 acamprosat e 666 mg tidmultidi sciplinary support for sobrietyth iamine 100 mg dailymulti vit dailyfolic acid 1 mg dailywill monitor Gastroesop hageal reflux disease without esophagitis 064136853 K21.9 omeprazole 40 mg dailyfamot idine 20 mg bidwill monitor Hyperlipidemia 60798165 E78.49 pravastati n 20 mg dailywill monitor [id number] VICTORINA DANIEL [facility] on [address] [place] [address]227 3 09/08/2023 09:33:06 09/17/2023 12:08:18 Bipolar I disorder 433387535 F31.9 nursing reports mood has been stablesero quel 50 mg BIDtrazodo ne 50 mg at bedtime prnmonitor for mood and behavior changesfol low up outpatient as needed Chronic ob structive pulmonary disease 90591392 J44.9 There has been no resp distress.m ontekulast 10 mg at bedtimealb uterol inhaler prnAlbuter ol Sulfate 2.5 MG/3ML) 0.083% QID prnincruse ellipta 62.5 mcg dailyfollo w up with PCP Schizophrenia 00040114 F 20.9 stablesero quel 50 mg TIDTrazado ne 50 mg at bedtime. Pain of [place]ul[place] region 89631876 M25.519 09/08: patient tells me that pain has improved.H x of OAchronic pain with masstoday she report left shoulder pain unresolved with tylenollim ited movement, unable to raise arm over head.pain with abductionm eloxicam 15 mg addedtrama dol 25 mg every 8 hours as needed.PT/ OT eval [id number] VICTORINA DANIEL [facility] on [address] [place] [phone] 3 09/10/2023 09:10:47 09/17/2023 12:32:41 Bipolar I disorder 796074374 F31.9 see hpirecent disruptive behaviors, able to be redirected seroquel 50 mg BIDtrazodo ne 50 mg at bedtime prnmonitor for mood and behavior changesfol low up outpatient as needed Chronic ob structive pulmonary disease 73490266 J44.9 There has been no resp distress.m ontekulast 10 mg at bedtimealb uterol inhaler prnAlbuter ol Sulfate 2.5 MG/3ML) 0.083% QID prnincruse ellipta 62.5 mcg dailyfollo w up with PCP Schizophrenia 36828763 F 20.9 see hpiseroque l 50 mg TIDTrazado ne 50 mg at bedtime. Pain of [facility] region 00893128 M25.519 12:impr oving- self mobile in wheelchair Hx of OAchronic pain with massmeloxi cam 15 mg addedtrama dol 25 mg every 8 hours as needed.PT/ OT eval [id number] VICTORINA DANIEL [facility] on [address] [place] [phone] 3 09/14/2023 08:23:39 09/17/2023 13:08:15 Bipolar I disorder 388431128 F31.9 recent disruptive behaviors, able to be redirected seroquel 50 mg BIDtrazodo ne 50 mg at bedtime prnmonitor for mood and behavior changesfol low up outpatient as needed Chronic ob structive pulmonary disease 69514375 J44.9 There has been no resp distress.m ontekulast 10 mg at bedtimealb uterol inhaler prnAlbuter ol Sulfate 2.5 MG/3ML) 0.083% QID prnincruse ellipta 62.5 mcg dailyfollo w up with PCP Schizophrenia 06319284 F 20.9 seroquel 50 mg TIDTrazado ne 50 mg at bedtime. [facility] 63595431 M25.519 linited ROM, pain improved.H x of OAchronic pain with massmeloxi cam 15 mgtramadol 25 mg every 8 hours as needed.PT/ OT eval [id number] VICTORINA DANIEL [facility] on [address] [place] [address] [phone] 3 09/17/2023 12:41:51 10/06/2023 15:30:44 Bipolar I disorder 188382264 F31.9 recent disruptive behaviors, able to be redirected seroquel 50 mg BIDtrazodo ne 50 mg at bedtime prnmonitor for mood and behavior changesfol low up outpatient as needed Chronic ob structive pulmonary disease 68231915 J44.9 There has been no resp distress.m ontekulast 10 mg at bedtimealb uterol inhaler prnAlbuter ol Sulfate 2.5 MG/3ML) 0.083% QID prnincruse ellipta 62.5 mcg dailyfollo w up with PCP Schizophrenia 26017999 F 20.9 seroquel 50 mg TIDTrazado ne 50 mg at bedtime. Pain of sh [place] region 80532497 M25.519 on exam pt denies any shoulder discomfort , however per PT notes will report 10/10 pain, pt further states pain when he looks at shoulder, no pain when she does not to look at shoulder. limited ROM, pain improved.H x of OAchronic pain with massmeloxi cam 15 mgtramadol 25 mg every 8 hours as needed.PT/ OT eval [id number] VICTORINA DANIEL [facility] on [address] [place] [address] [phone] 3 09/21/2023 11:13:27 10/06/2023 16:26:07 Bipolar I disorder 923708465 F31.9 recent disruptive behaviors, able to be redirected seroquel 50 mg BIDtrazodo ne 50 mg at bedtime prnmonitor for mood and behavior changesfol low up outpatient as needed Chronic ob structive pulmonary disease 07358325 J44.9 There has been no resp distress.m ontekulast 10 mg at bedtimealb uterol inhaler prnAlbuter ol Sulfate 2.5 MG/3ML) 0.083% QID prnincruse ellipta 62.5 mcg dailyfollo w up with PCP Schizophrenia 13723959 F 20.9 seroquel 50 mg TIDTrazado ne 50 mg at bedtime. Pain of sh [place] region 51265757 M25.519 on exam pt denies any shoulder discomfort , however per PT notes will report 10/10 pain, pt further states pain when he looks at shoulder, no pain when she does not to look at shoulder. limited ROM, pain improved.H x of OAchronic pain with massmeloxi cam 15 mgtramadol 25 mg every 8 hours as needed.PT/ OT eval Acute urin zoraida tract infection 297234153 N39.0 see hpinursing report fever on 09/19/23( there is no documentat ion in PCC or nursing notes ). there is no documented tylenol given for 09/19 0r 09/20.Give n IV Rocephin for UTI in triage/EDU /A postive for leukocytes 2+ onlyno fever in the ED, flank pain or other systemic signs of infection however given report of fever yesterday. Started on Ceftin 500 mg by mouth every 12 hours (twice daily) for 7 days. [id number] VICTORINA DANIEL [facility] on [address] [place] [address] 09/22/2023 08:42:09 10/06/2023 16:47:08 Metabolic encephalopathy 36073988 G93.41 see hpiresolve d in acute care Acute kidney injury 1466 9001 N17.9 encouraged increased fluid water intakefoll ow up with PCP on Oct 04 2023 Harmful pa ttern of use of alcohol 75351035 F10.10 MVI dailythiam ine 100 mg dailyfolic acid 1 mg dailyacamp rosate [address] TID Bipolar I disorder 13028 6008 F31.9 seroquel 50 mg BIDtrazodo ne 50 mg at bedtime prnmonitor for mood and behavior changesfol low up outpatient as needed Chronic ob structive pulmonary disease 06061759 J44.9 montekulas t 10 mg at bedtimealb uterol inhaler prnAlbuter ol Sulfate 2.5 MG/3ML) 0.083% QID prnincruse ellipta 62.5 mcg dailyfollo w up with PCP Schizophrenia 81337164 F 20.9 seroquel 50 mg TIDTrazado ne 50 mg at bedtime. Type 2 deny betes mellitus 39277671 E11.9 no hypo/hyper gylcemia events noted.diet controlled [facility] 14265291 M25.519 Hx of OAchronic pain with masstoday she report left shoulder pain unresolved with tylenollim ited movement, unable to raise arm over head.pain with abductionm eloxicam 15 mg prn qdtramadol 25 mg every 8 hours as needed.PT/ OT eval Health Concerns Section Related Observation LastModified by Organization Detai ls LastModified Time None Recorded Concern Status LastModified by Organization Details LastModified Time None Recorded Advance Directives Directive Y: full code Payers Insurance Date Sequence Insurance Name Policy Number Policy Monet Covered Member ID Monet Member ID Guarantor Name 07/08/2023 1 [place] [employer] Claus Saldañaa [id number] Belia Claus [place] 07/08/2023 1 [place] [facility] Belia Saldañaa [id number] Belia Devlin [place] 10/06/2023 1 [facility] - DOS ON OR AFTER 2022 - MEDICARE [place]VANTAGE [place] (MEDICARE REPLACEMENT/AD VANTAGE - PPO) Belia Devlin Maylin [id number] Belia Devlin Maylin Notes Date Note Type Note Provider Name and Address Organization Details Recorded Time 09/10/2023 text/html ROS as noted in the HPI Patient seen today for acute rounding visit. On exam she is stable.there is NAD. Nursing notes reviews, she can be verbally abusing yelling with aggression towards staff, it appears she is upset with current room mate yelling all night as well as patient is upset with needs not being met by family. Patient is followed by and was seen on 09/09/23 for her recent disruptive yelling. Family is planning to move to [place] patient includedYadi Celaya is a 68 yr old with past medical history of Dementia, alcohol abuse with hx of withdrawals, COPD, Bipolar disorder/schizophr enia, HFpeF, diabetes, UTIs, korsakoff disease, OA, htn, CAD, sleep apnea, chronic hyponatremia. WEN RODRIGES, VICTORINA [address] [facility], [address], [place], [address], [facility] [employer] 09/10/2023 12:58:06 09/14/2023 text/html ROS as noted in the HPI Patient seen today for acute rounding visit. Belia is a 68 yr old with past medical history of Dementia, alcohol abuse with hx of withdrawals, COPD, Bipolar disorder/schizophr enia, HFpeF, diabetes, UTIs, korsakoff disease, OA, htn, CAD, sleep apnea, chronic hyponatremia. Today she lying on bed in room, there is NAD. VICTORINA DANIEL [address] [facility] [facility], [address], [place], [address], [facility] [employer] 09/15/2023 01:29:41 09/17/2023 text/html ROS as noted in the [facility] Patient seen today for acute rounding visit. She is stable, there is no acute distress. There are no acute nursing concerns. She is anticipating discharge to home next week. Belia is a 68 yr old with past medical history of Dementia, alcohol abuse with hx of withdrawals, COPD, Bipolar disorder/schizophr enia, HFpeF, diabetes, UTIs, korsakoff disease, OA, htn, CAD, sleep apnea, chronic hyponatremia. VICTORINA DANIEL [address] [facility] [facility], [address], [place], [address], [facility] [employer] [facility] 09/17/2023 13:01:52 09/21/2023 text/html ROS as noted in the [facility] Patient seen today for acute rounding visit. On 09/20/23 Patient was sent to ED for evaluation of fever on (09/19/23) abdominal and back pain. Patient denies any abdominal pain but reported burning pain with urination similar to prior urinary tract infections. Diagnosed with UTI and returned to the same day. Past medical history of Dementia, alcohol abuse with hx of withdrawals, COPD, Bipolar disorder/schizophr enia, HFpeF, diabetes, UTIs, korsakoff disease, OA, htn, CAD, sleep apnea, chronic hyponatremia. Today she is stable. Anticipating discharge to home. VICTORINA DANIEL [address] [facility], [address], [place], [address], [facility] [employer] 09/21/2023 14:33:15 09/22/2023 text/html ROS as noted in the [facility] Patient is a 68 yr old patient seen today discharge. Past medical history of Dementia, alcohol abuse with hx of withdrawals, COPD, Bipolar disorder/schizophr enia, HFpeF, diabetes, UTIs, korsakoff disease, OA, htn, CAD, sleep apnea, chronic hyponatremia. Presented to [facility] with agitation and confusion. patient called EMS for increased aggression and intoxication. Patient has had similar presentation to hospital in past, patient was felt to be intoxicated but her drug screen and etoh level were negative. Patient UA was equivocal, but due to her history of frequent UTI with ESBL infection and confusion she received 1 dose of IV ertapenam in the ED. Patient called the hospital and told them that she could not return home, He could no longer take care of her. Patient has a history of frequent UTI with ESBL infection. urine was + for marijuana, Creatinine was 1.4. Belia has been stable and can be discharge to home with medication including narcotic(tramadol) and VNA services. Molst: Full Code VICTORINA DANIEL [address] [facility] [facility], [address], [place], [address], [facility] - [employer] 09/22/2023 13:00:05 OBGyn Episode No OBEpisode recorded.
--- OUTSIDE RECORDS SUMMARY | 2025-08-18 13:45 | XMS_ITS | Encounter Summary ---
Author Organization [employer] Address [address] [place] [address] Care Team Providers Care Clinical Laboratory Scientist Name Role Phone Name, Ryder HARTLEY Primary Care Provider [phone] Reason for Visit * Reason Comments Med Refill Encounter Details Date Type Department Care Team ([facility] Contact Info) Description 04/16/2023 Refill [facility] [address] [place], [place] [phone] Name, MD Ryder [address] [place] [address] COPD exacerbation ([facility]) Social History Tobacco Use Types [...] exacerbation documented in this encounter Care Teams Clinical Laboratory Scientist Relationship Specialty Start Date End Date Name, MD Ryder [address] [place] [address] PCP - General Family Medicine 12/25/15 [facility] 02/09/24 documented as of this encounter
--- NOTE | 2025-08-18 14:04 | MHC.CARE ---
Pt's Step Daughter: Altagracia Persaud [phone]
--- NOTE | 2025-08-18 15:10 | MHC.EDTECH ---
Patient refusing labs at this time. RN aware.
[2025-08-18 16:21] LABS: MANUAL DIFF FLAG NO
[2025-08-18 16:23] LABS: Hematocrit 31.9 % (37.0-47.0); Hemoglobin 10.4 g/dl (12.0-16.0); Imm Gran Abs Auto 0.07 X10*3/uL (0.00-0.03); Imm Gran Pct Auto 1.5 % (0.0-0.4); Lymphocytes Absolute Auto 1.3 X10*3/uL (1.2-4.9); Mean Corpuscular HGB Conc 32.6 g/dl (31.0-35.0); Mean Corpuscular Hemoglobin 29.5 pg (27.0-33.0); Mean Corpuscular Volume 90.4 fL (80.0-98.0); NRBC Abs Auto 0.000 X10*3/uL (0.0-0.012); NRBC Pct Auto 0.0 /100WBC (0.0-0.2); Platelet Count 261 X10*3/uL (160-400); Red Blood Count 3.53 X10*6/uL (4.20-5.50); White Blood Count 4.8 X10*3/uL (4.8-10.8)
[2025-08-18 16:37] LABS: Alanine Aminotransferase < 6 U/L (0-31); Albumin Level 3.4 g/dL (3.5-5.0); Alkaline Phosphatase 126 U/L (39-117); Anion Gap 11 (12-20); Aspartate Amino Transferase 15 U/L (5-31); Blood Urea Nitrogen 13 mg/dL (9-16); Calcium 9.2 mg/dL (8.4-10.2); Carbon Dioxide 26 mmol/L (22-29); Chloride 106 mmol/L (96-108); Creatinine Clr Calc Pharmacy 50.2; Estimated Glomerular Filt Rate > 60; Magnesium 2.2 mg/dL (1.6-2.6); Potassium 4.6 mmol/L (3.3-5.1); Sodium 138 mmol/L (135-145); Total Protein 7.1 g/dL (6.5-8.0)
[2025-08-18 17:37] LABS: Resp Syncy Virus RNA Qual PCR NEGATIVE (Negative); SARS COV2 PCR INHOUSE NEGATIVE (Negative)
--- NOTE | 2025-08-18 19:57 | PC.NURSE ---
EMS arrived to bring patient home, RN encouraged Primary RN to outreach home/ to ensure that he was home and would be willing/able to receive the patient safely within the home. No answer on the 2 numbers listed within the chart, RN contacted ibis Frias via number listed by care team. She reports that the family (including the ) do not want her back home as she requires more care than can safely be provided adding that her aggression has become too much for them to manage and they beleive she would benefit from placement. Previous DIVINA has left, charge lpn spoke with current DIVINA to make them aware and request a PT/CM order for assessment/eval tomorrow.
--- NOTE | 2025-08-18 20:01 | PC.NURSE ---
approximately @1930 pt was due for D/C. upon EMS arrival it was found pt has a HCP form, pt family was contacted by clinic charge nurse in order to inform them of pt D/C back to home. Pt's step daughter Altagracia stated that the is unable to care for the pt at home alone, and raised concerns for pt well being in the household. Pt was not transported out of ED via EMS, transport cancelled and pt pending case management eval
[2025-08-18 20:25] VITALS: BP 156/70; PULSE 69; RESP 16; TEMP 36.3; O2SAT 94
[2025-08-18 22:00] VITALS: RESP 16
[2025-08-19] VITALS: RESP 16
--- NOTE | 2025-08-19 03:02 | PC.NURSE ---
pt moved from ED16H to ED15 for privacy and comfort during her observation in the ED. This RN attempted to place pt on purewick due to urinary incontinence, urgency, and inability to ambulate safely. Pt then stated that she is allergic to the purewick, did not specify what type of reaction she gets when purewick is placed. RN attempted to educate the pt on the need and usage of purewick, pt adamant on allergy and refused purewick use. Pt connected to wall o2 at 2L via [place], calll light provided for safety, lights dimmed. Pt in no apparent ditress at this time.
[2025-08-19 06:00] VITALS: RESP 16
--- NOTE | 2025-08-19 10:53 | PC.NURSE ---
patient changed and cleaned up, placed in hospital bed for comfort. plan of care on going.
[2025-08-19 12:05] VITALS: BP 167/76; PULSE 72; RESP 18; TEMP 36.8; O2SAT 98
--- NOTE | 2025-08-19 12:12 | PC.NURSE ---
pharmacy contacted for patient med rec, attempted to call patients step daughter for info
--- NOTE | 2025-08-19 14:33 | MHC.CM.ED ---
Received consult for assessment of d/c needs: Pt is well known to [facility] d/t frequent visits. Pt states EMS brought her to [facility] after her HCP/partner Juanjo said he could no longer take care of her. Pt admits both her and Juanjo had been drinking and things get crazy CM attempted to contact Juanjo x 6 - no answer or busy signal. Call placed to pt's dtr Karyn who resides in [place] - she will contact other family who can call Juanjo. She states he does not always answer calls from [facility] when Belia is here but is more likely to answer a family call. Pt not a reliable historian d/t Korsakoff syndrome but states Juanjo assists w/her ADL's and care needs. She also states she uses a w/c but can transfer. Discussed consult for PT eval and possible STR placement. Pt states she wants to return to home where I live all the time and not transfer to a SNF. ED CM waiting to confirm that Juanjo is available and willing to assist pt at home w/her care needs before arranging transportation. Pt has been active with [facility] - unable to verify current status but suspect agency involvement. Will await Juanjo's communication then will arrange BLS for pt to transfer to her home.
--- NOTE | 2025-08-19 15:38 | MHC.EDTECH ---
Patient washed and bed changed. Patient had xl BM
--- NOTE | 2025-08-19 16:18 | PHA.MEDREC ---
Addendum entered by Guy Ruiz PharmD 08/19/25 16:20: reviewed Original Note: Pharmacy Consult ? Medication Reconciliation Pharmacy has completed the medication reconciliation. Confirmed medication list with patient and against claims history.
[2025-08-19 16:37] VITALS: BP 147/63; PULSE 75; RESP 16; TEMP 36.8; O2SAT 100
[2025-08-19 22:37] VITALS: BP 167/72; PULSE 82; RESP 16; TEMP 36.8; O2SAT 97
--- NOTE | 2025-08-20 04:39 | PC.NURSE ---
pt was cleaned, bed pads changed. call jones within reach. able to make needs known.
[2025-08-20 08:32] VITALS: BP 131/69; PULSE 85; O2SAT 99
[2025-08-20 08:44] VITALS: BP 131/69; PULSE 85; RESP 14; TEMP 36.6; O2SAT 99
[2025-08-20] MEDS: Metoprolol Succinate ER 25 MG TAB.ER.24H PO (09:09)
[2025-08-20] MEDS: Ferrous Sulfate 324 MG TABLET.DR PO (09:09)
--- NOTE | 2025-08-20 09:13 | MHC.CM.ED ---
Addendum entered by Risa Lozano 08/20/25 10:44: No bed offers within 25 miles. Referral broadcasted within 50 miles. Original Note: Patient remains in ER. Physical therapy eval ordered and pending. Patient is well known to CM due to frequent ER visits. Patient has an invoked HCP, her sig other, Juanjo. Spoke with Juanjo via telephone at [phone]. Juanjo feels patient needs long-term placement again. Juanjo aware placement might be as far as [place]. Juanjo verbalizes understanding. SNF referral will be broadcasted at this time. Continue to monitor for d/c needs.
--- NOTE | 2025-08-20 13:35 | MHC.CM.ED ---
[facility] in [place] is only facility willing to offer a bed at this time. Spoke with Juanjo via telephone at [phone]. Juanjo agreeable. [place] has been asked to obtain insurance auth. [facility] PASRR Level 1 submitted by T/W. Continue to monitor for d/c needs.
[2025-08-20] MEDS: Lidocaine 4 % Patch ADH..PATCH 1 PATCH TRANSDERMA (16:20)
--- NOTE | 2025-08-20 19:15 | PC.NURSE ---
Report taken from Ida RN, assumed care of pt at this time. A&Ox3 skin pwd respirations even unlabored. Incontinent of urine, cleaned and bed changed. Offers no additional complaints at this time. STR bedsearch pt aware of plan of care- states she wants to go live with family not STR. Will continue to monitor.
[2025-08-20 19:59] VITALS: BP 144/76; PULSE 73; RESP 16; TEMP 36.8; O2SAT 99
--- NOTE | 2025-08-21 01:11 | PC.NURSE ---
Pt resting in bed eyes closed, skin pwd respirations even unlabored. NAD. CM bedsearch continues.
[2025-08-21 05:02] VITALS: BP 130/71; PULSE 89; RESP 28; TEMP 36.8; O2SAT 99
--- NOTE | 2025-08-21 05:17 | PC.NURSE ---
Report given to Maria Isabel KIRK, pt exits my care at this time.
[2025-08-21] MEDS: Albuterol Sulfate 90 MCG 8 GM INHALER 2 PUFF INHALE ×3 (05:51→21:06)
[2025-08-21 05:52] VITALS: PULSE 88; RESP 18; O2SAT 98
[2025-08-21] MEDS: Fluticasone/Vilanterol 100/25 BLST.W.DEV 1 PUFF INHALE (07:30)
[2025-08-21 07:32] VITALS: PULSE 88; RESP 18
[2025-08-21 08:45] VITALS: BP 122/73; PULSE 84
[2025-08-21] MEDS: Metoprolol Succinate ER 25 MG TAB.ER.24H PO (08:45)
[2025-08-21] MEDS: Ferrous Sulfate 324 MG TABLET.DR PO (08:47)
[2025-08-21 15:10] VITALS: BP 118/48; PULSE 75; RESP 16; TEMP 36.9; O2SAT 99
[2025-08-21 20:43] LABS: Appearance Urine Cloudy; Glucose Urine UA Negative (Negative); PH 6.5 (5.0-9.0); Specific Gravity - Urine 1.020 (1.005-1.025); UMIC TRIGGER UACC YES
[2025-08-21 20:48] LABS: UACC Culture Trigger YES
[2025-08-21 20:51] LABS: Cannabinoid Screen Urine POSITIVE (Not Detect)
[2025-08-21 21:03] VITALS: BP 134/58; PULSE 70; RESP 16; TEMP 36.8; O2SAT 100
--- NOTE | 2025-08-21 21:58 | PC.NURSE ---
Pt resting in bed at this time, breathing equal and unlabored. SPO2 99-100% on 2L via NC, pt states she wants to leave O2 on at this time. Medicated with PRN Trazadone per request for sleep. Pure wick in place, towel around changed. Pad clean and dry.
[2025-08-22 01:28] VITALS: BP 135/71; PULSE 84; RESP 16; TEMP 36.7; O2SAT 99
[2025-08-22] MEDS: Lidocaine 4 % Patch ADH..PATCH 1 PATCH TRANSDERMA (04:09)
[2025-08-22 06:50] VITALS: PULSE 80; RESP 16; O2SAT 100
[2025-08-22] MEDS: Fluticasone/Vilanterol 100/25 BLST.W.DEV 1 PUFF INHALE (07:48)
[2025-08-22 07:50] VITALS: PULSE 80; RESP 16
--- NOTE | 2025-08-22 08:33 | MHC.CM.ED ---
Patient remains in ER. [facility] is going for ins auth from [facility]. Reached out to facility inquiring about auth. Continue to monitor for d/c needs.
[2025-08-22 09:02] VITALS: BP 123/56; PULSE 88; RESP 18; TEMP 36.8; O2SAT 100
[2025-08-22] MEDS: Ferrous Sulfate 324 MG TABLET.DR PO (09:04)
[2025-08-22] MEDS: Metoprolol Succinate ER 25 MG TAB.ER.24H PO (09:04)
[2025-08-22] MEDS: Lidocaine 4 % Patch ADH..PATCH 2 PATCH TRANSDERMA (09:05)
--- NOTE | 2025-08-22 09:17 | PC.NURSE ---
medicated per the MAR. states she wears oxygen 2L when she is in bed. remains pt/cm.
--- NOTE | 2025-08-22 11:37 | MHC.EDTECH ---
Pt was complaining she was wet. New sheets on bed. Purewick in place. Call jones within reach.
--- NOTE | 2025-08-22 12:00 | PC.NURSE ---
Received pt from Main ED to overflow bed 2. Pt oriented to surroundings, pt given call jones.
--- NOTE | 2025-08-22 12:03 | MHC.CM.ED ---
Patient remains in ER. Spoke with Girish at [facility]. [facility] declined STR. They are in the process of obtaining [facility] auth but will not be able to accept before Wednesday. Continue to monitor for d/c needs.
[2025-08-22 15:29] VITALS: RESP 16
[2025-08-22 15:59] VITALS: BP 128/60; PULSE 62; RESP 17; TEMP 36.7; O2SAT 94
--- NOTE | 2025-08-22 16:07 | MHC.EDTECH ---
took care for patient @1600, clean brief placed on pt d/t incontinence, bed alarm on for fall risk precautions, pudding given, no other needs stated at this time
--- NOTE | 2025-08-22 16:56 | MHC.EDTECH ---
pt ate 10% of dinner aaron, REAGAN aware
[2025-08-22] MEDS: Albuterol Sulfate 90 MCG 8 GM INHALER 2 PUFF INHALE (19:29)
--- NOTE | 2025-08-22 19:29 | MHC.EDTECH ---
Pt incontinent of urine. Briefs changed and timothy care done. RN aware
[2025-08-23 00:04] VITALS: BP 129/62; PULSE 60; RESP 18; TEMP 36.7; O2SAT 97
[2025-08-23] MEDS: Albuterol Sulfate 90 MCG 8 GM INHALER 2 PUFF INHALE (05:05)
[2025-08-23] MEDS: Lidocaine 4 % Patch ADH..PATCH 1 PATCH TRANSDERMA (05:11)
[2025-08-23 05:19] VITALS: BP 107/62; PULSE 76; RESP 18; TEMP 36.7; O2SAT 100
--- NOTE | 2025-08-23 08:05 | PC.NURSE ---
Addendum entered by Salina Alcala RN 08/23/25 08:40: bed alarm on/fall precautions intact Original Note: patient awake/alert to person/place, rr equal/non labored- lungs diminished/clear- 2L NC- fall precautions/bed alarm intact, incontinent of large amounts of urine- brief intact and can make needs known. Presently denying pain/discomfort, call jones within reach, plan of care ongoing
[2025-08-23] MEDS: Fluticasone/Vilanterol 100/25 BLST.W.DEV 1 PUFF INHALE (08:06)
[2025-08-23 08:07] VITALS: PULSE 76; RESP 18; O2SAT 94
[2025-08-23] MEDS: Metoprolol Succinate ER 25 MG TAB.ER.24H PO (09:49)
[2025-08-23] MEDS: Ferrous Sulfate 324 MG TABLET.DR PO (09:49)
--- NOTE | 2025-08-23 09:57 | PC.NURSE ---
pt sleeping, wakes to verbal stimulus, rr equal/non labored- lungs diminished, 2L NC at baseline, pt incontinent of urine- rings appropriately to be changed, CIWA-2, medicated per order, call jones within reach, fall precautions intact, plan of care ongoing.
--- NOTE | 2025-08-23 11:18 | PC.NURSE ---
patient angry with this nurse after this nurse told her she was not due for another lidocaine patch, pt began yelling at this nurse wanting pain medication, she was told that this nurse would contact the provider and see what we can get for pain medication as she refused tylenol and is tearful. Upon leaving the room to notify the provider, pt had a bowel movement in her brief and began playing in the BM and wiping it on her blankets and bed. Provider was notified of behavioral issues and pain and is presently at bedside speaking with the patient
[2025-08-23 11:28] VITALS: BP 133/55; PULSE 87; RESP 20; TEMP 36.6; O2SAT 98
--- NOTE | 2025-08-23 11:53 | PC.NURSE ---
tylenol provider requested this nurse to give tylenol for the pain- aware pt pain rating is 10/10
--- NOTE | 2025-08-23 12:50 | MHC.EDTECH ---
Patient was cleaned up and change the dipper, she is comfortable in her bed now within call jones in reach
[2025-08-23 14:00] VITALS: BP 105/46; PULSE 84; TEMP 37.1; O2SAT 100
--- NOTE | 2025-08-23 14:14 | PC.NURSE ---
Pt transferred back to main ED at approx. 1300, this RN assumes care of Pt at this time. Pt arrives in hospital bed. Pt offers no complaints on arrival. She is resting quietly in bed with TV on. NAD noted.
[2025-08-23 22:00] VITALS: BP 113/67; PULSE 114; TEMP 37; O2SAT 99
[2025-08-24 07:21] VITALS: PULSE 83; RESP 16; O2SAT 97
[2025-08-24] MEDS: Fluticasone/Vilanterol 100/25 BLST.W.DEV 1 PUFF INHALE (07:21)
[2025-08-24 08:28] VITALS: BP 124/86; PULSE 94
[2025-08-24] MEDS: Metoprolol Succinate ER 25 MG TAB.ER.24H PO (08:28)
[2025-08-24] MEDS: Ferrous Sulfate 324 MG TABLET.DR PO (08:28)
[2025-08-24 09:02] VITALS: BP 128/50; PULSE 89; RESP 16; TEMP 36.8; O2SAT 98
--- NOTE | 2025-08-24 10:28 | MHC.CM.ED ---
Pt is holding in the ED awaiting payor auth for transfer to [facility]. Auth will likely will be given on Wednesday, 08/27
[2025-08-24 14:22] VITALS: BP 135/61; PULSE 69; RESP 16; O2SAT 100
--- NOTE | 2025-08-24 14:37 | PC.NURSE ---
PAtient alert and responsive. On O2 2L NC 97% Patient frequently incontinent, Patient cleaned up and given new linen Purewick placed, patient keeps moving purewick. Attempted to redirect patient with no success Patient c/o back pain, requesting lidocaine patch Patch applied per MAR Patient awaiting auth for bed placement
[2025-08-24] MEDS: Lidocaine 4 % Patch ADH..PATCH 1 PATCH TRANSDERMA (15:03)
[2025-08-24 22:00] VITALS: BP 159/61; PULSE 66; RESP 16; TEMP 36.7; O2SAT 100
[2025-08-25] VITALS (7 sets, daily range): BP systolic 119–134; BP diastolic 57–92; PULSE 65–95; RESP 18–20; TEMP 36.2–36.9; O2SAT 99–100
[2025-08-25] MEDS: Fluticasone/Vilanterol 100/25 BLST.W.DEV 1 PUFF INHALE (07:35)
[2025-08-25] MEDS: Metoprolol Succinate ER 25 MG TAB.ER.24H PO (08:45)
[2025-08-25] MEDS: Ferrous Sulfate 324 MG TABLET.DR PO (08:46)
[2025-08-25] MEDS: oxyCODONE HCl Immed Release 5 MG TABLET PO (11:12)
[2025-08-25] MEDS: Lidocaine 4 % Patch ADH..PATCH 1 PATCH TRANSDERMA (11:13)
--- NOTE | 2025-08-25 15:20 | MHC.CM.PN ---
CM CONTINUES TO AWAIT [facility] INSURANCE AUTH FOR ADMISSION VIA [facility].
[2025-08-26 06:00] VITALS: BP 109/62; PULSE 88; RESP 18; TEMP 36.8; O2SAT 97
--- NOTE | 2025-08-26 07:22 | MHC.EDTECH ---
Pt incontinent of urine. PT washed up and linens changed. Resting quietly at this time.
[2025-08-26] MEDS: Fluticasone/Vilanterol 100/25 BLST.W.DEV 1 PUFF INHALE (07:44)
[2025-08-26 07:46] VITALS: PULSE 88; RESP 18
[2025-08-26] MEDS: Lidocaine 4 % Patch ADH..PATCH 1 PATCH TRANSDERMA (08:14)
[2025-08-26] MEDS: Metoprolol Succinate ER 25 MG TAB.ER.24H PO (08:15)
[2025-08-26] MEDS: Ferrous Sulfate 324 MG TABLET.DR PO (08:15)
--- NOTE | 2025-08-26 09:42 | PC.NURSE ---
Addendum entered by Morris Morel RN 08/26/25 11:37: per HCP is invoked and pt cannot leave AMA. pt was informed Original Note: pt req to leave AMA. md was informed and per MD pt cannot leave AMA at this time
[2025-08-26 14:00] VITALS: BP 120/57; PULSE 65; RESP 18; TEMP 36.3
[2025-08-26 14:45] LABS: Glucose, Whole Blood 132 mg/dL (60-115)
[2025-08-26 21:38] VITALS: BP 122/69; PULSE 85; RESP 16; TEMP 36.8; O2SAT 100
--- NOTE | 2025-08-27 04:14 | PC.NURSE ---
pt requested her muscle relaxer- stated she had back pain and could not sleep.
[2025-08-27 06:00] VITALS: BP 108/56; PULSE 78; RESP 18; TEMP 37.1; O2SAT 98
--- NOTE | 2025-08-27 06:15 | PC.NURSE ---
*late entry* pt was cleaned at or around 0200, pt had a bowel /urine incontinence. This RN cleaned pt, applied barrier cream & changed pads. bed at lowest position, call jones within reach. bed alarm on.
[2025-08-27 08:31] VITALS: PULSE 87; RESP 16
[2025-08-27] MEDS: Fluticasone/Vilanterol 100/25 BLST.W.DEV 1 PUFF INHALE (08:31)
[2025-08-27] MEDS: Ferrous Sulfate 324 MG TABLET.DR PO (08:35)
[2025-08-27 08:37] VITALS: BP 120/62; PULSE 83
[2025-08-27] MEDS: Metoprolol Succinate ER 25 MG TAB.ER.24H PO (08:37)
[2025-08-27] MEDS: Lidocaine 4 % Patch ADH..PATCH 1 PATCH TRANSDERMA (08:38)
--- NOTE | 2025-08-27 11:04 | PC.NURSE ---
Incontinent of urine x2 (large amounts) within the last hour. Refusing purewick stating I get a rash from that . Patient is asking to leave against medical advice. Patient aware that we are awaiting insurance auth for placement. Patient said okay and was calm. A few minutes later, the patient began screaming/crying. This RN re-entered the room, and patient stated my took my check and after 25 years, now I know what kind of he is! . This RN reassured the patient that we continue to await placement, and that she needs more involved care than what can be managed at home for now. Patient calmer and agreed to await placement. Case management (Risa Lozano) updated about this. Bedsearch/pending authorization ongoing, will update as needed. Care ongoing by this RN.
--- NOTE | 2025-08-27 11:48 | MHC.CM.ED ---
Patient remains in ER overflow. Received notification from [facility] that they are no longer able to offer a bed. Reached out to [facility]. Will re-broadcast referral. Continue to monitor for d/c needs.
--- NOTE | 2025-08-27 12:09 | HO.WOUND ---
Over Flow Rounding completed 70yr old female present in [facility] [place] OverFlow area - See ED notes for detailed history.? Inpatient Skin Integrity Maintenance Rounding. Patient agreeable to assessment and skin assessment. Brief chart review completed.? Patient reports she is eager to go home, provider is aware and patient informed she is not ablet to leave at this time due to her capacity to make her health decisions. She was turning well with in the bed however [employer] reports frequent episodes of mixed incontinence. Skin to perineal and buttock noted to bed red intact and blanchable consistent with MASD. Bilateral Heels assessed for blanchable redness, remain intact and floated off of bed surface with pillows. Buttock, Sacrum and Coccyx assessed - noted to be intact, red pink however remains blanchable - MASD. May use preventative foam dressing application to protect from friction and injury development.? Patient on Hospital bed at this time recommend applying low air loss pump to mattress if available.? Recommend SIPP Activation. Buttock and Perineal - Off Load Pressure with Q2 hr turns and use of pillows - Cleanse with PH balance spray or wipes, pat dry. ?Apply thin layer of barrier cream to affected area.? Apply twice daily and Reapply thin layer PRN after each episode of incontinence. Bilateral Heels? - Elevate heels off of bed surface with pillows.? Float heels off of pillows.? Apply skin prep allow to dry.? Apply heel foam dressings, peel back and assess Q shift and change every 5-7 days and PRN.
--- NOTE | 2025-08-27 13:23 | PC.NURSE ---
Stool specimens (GI panel & CDiff PCR) collected and sent for analysis. Patient has had a total of 5 bowel movements (soft, brown) since 7am today. Brayan VARGAS aware. Patient uses call jones frequently. Refuses purewick (see previous notes). Care ongoing by this RN.
[2025-08-27 14:00] VITALS: BP 128/64; PULSE 68; RESP 18; TEMP 37.5; O2SAT 99
[2025-08-27 15:14] LABS: CDiff Gene PCR NEGATIVE (Negative)
--- NOTE | 2025-08-27 15:45 | PC.NURSE ---
Given imodium as ordered earlier this shift. Has had 2 additional soft bowel movements within the past hour. Linens changed, hygiene care provided. New pads/linens in place. Call jones within reach. Care ongoing by this RN.
[2025-08-27 15:53] LABS: E. coli EAEC Not Detected (Not Detect.); E. coli EPEC Not Detected (Not Detect.); E. coli ETEC Not Detected (Not Detect.); E. coli STEC Not Detected (Not Detect.); Shigella sp./EIEC Not Detected (Not Detect.)
--- NOTE | 2025-08-27 16:02 | PC.NURSE ---
Positive Norovirus (per lab) in stool sample. Critical result reported to ALICIA Mishra. Care ongoing by this RN.
--- NOTE | 2025-08-27 21:28 | PC.NURSE ---
Took over care at 21:00 from REAGAN Esparza pt in bed sleeping at this time.
--- NOTE | 2025-08-27 23:46 | PC.NURSE ---
assist pt on too the bed harvey
--- NOTE | 2025-08-27 23:53 | PC.NURSE ---
pt please on bed, clean and position in bed.
--- NOTE | 2025-08-28 00:30 | PC.NURSE ---
pt yelling out, medicated per mar for anxiety
--- NOTE | 2025-08-28 01:56 | PC.NURSE ---
pt continue to keep yelling while reposition and timothy care, have had to redirect patient. call jones at the bedside.
--- NOTE | 2025-08-28 02:55 | PC.NURSE ---
Completed bed change, pt reposition for comfort, pt continue to yell out and rude to staff.
--- NOTE | 2025-08-28 04:29 | PC.NURSE ---
pt incontinent of urine, per care completed, protective cream applied and pt repositon. call jones at the bed side, bed alarmed.
[2025-08-28 05:36] VITALS: BP 112/61; PULSE 78; RESP 20; TEMP 37.2; O2SAT 100
--- NOTE | 2025-08-28 06:05 | PC.NURSE ---
pt incontinent of urine, refusing pure wick, medicated per mar and respoistion.
[2025-08-28 08:13] VITALS: PULSE 76; RESP 20; O2SAT 100
[2025-08-28] MEDS: Fluticasone/Vilanterol 100/25 BLST.W.DEV 1 PUFF INHALE (08:13)
[2025-08-28 08:24] VITALS: BP 122/60; PULSE 70
[2025-08-28] MEDS: Metoprolol Succinate ER 25 MG TAB.ER.24H PO (08:24)
[2025-08-28] MEDS: Ferrous Sulfate 324 MG TABLET.DR PO (08:24)
[2025-08-28] MEDS: Lidocaine 4 % Patch ADH..PATCH 1 PATCH TRANSDERMA (08:25)
--- NOTE | 2025-08-28 09:16 | PC.NURSE ---
Assumed care of pt at 0700. Pt resting in bed quietly, respirations even and unlabored, no increased wob/sob noted. Pt incontinent of urine/stool. Washed up and new bed linens applied. Skin pwd- no redness/wounds noted. Pt able to reposition herself in bed/make needs known. Sitting upright in bed eating breakfast. Call jones within reach, all needs met at this time.
--- NOTE | 2025-08-28 12:00 | PC.NURSE ---
Received reprt and assumed care. Pt in bed, denies any c/0's/concerns at this time. Pt able to reposition self and make needs known. Contact and fall precautions remain in place.
--- NOTE | 2025-08-28 12:20 | MHC.CM.ED ---
Patient remains in ER overflow. [facility] able to offer a bed and is in the process of obtaining ins auth. [facility] PASRR made aware. Continue to monitor for d/c needs.
[2025-08-28 13:52] VITALS: BP 119/58; PULSE 70; RESP 18; TEMP 36.8; O2SAT 98
[2025-08-28 19:41] VITALS: BP 138/67; PULSE 66; RESP 19; TEMP 36.8; O2SAT 99
[2025-08-29 03:13] VITALS: BP 119/64; PULSE 68; RESP 16; TEMP 37.2; O2SAT 99
--- NOTE | 2025-08-29 06:43 | PC.NURSE ---
Assumed care of pt 189908/28/25. PT a/ox4 able to make needs known. VSS. PT slept little throughout the night. PT encouraged to create quiet sleeping positive environment by turning tv off and not utilizing phone, pt kindly declined stating this is how she always is pt also offered PRN sleep medications for insomnia, pt declined. PT having several bouts of diarrhea and urinary incontinence throughout shift. Pericar provided, skin noted to be intact though she reports some pain from diarrhea/wiping. Safety precautions in place. Plan of care ongoing
[2025-08-29 07:31] VITALS: BP 117/58; PULSE 70; RESP 16; TEMP 36.3; O2SAT 100
[2025-08-29] MEDS: Fluticasone/Vilanterol 100/25 BLST.W.DEV 1 PUFF INHALE (07:56)
[2025-08-29 07:57] VITALS: PULSE 62; RESP 16; O2SAT 100
[2025-08-29] MEDS: Ferrous Sulfate 324 MG TABLET.DR PO (08:20)
[2025-08-29] MEDS: Metoprolol Succinate ER 25 MG TAB.ER.24H PO (08:20)
[2025-08-29] MEDS: Lidocaine 4 % Patch ADH..PATCH 1 PATCH TRANSDERMA (08:20)
--- NOTE | 2025-08-29 12:26 | PC.NURSE ---
Alert and responsive, ate well for breakfast and lunch. Able to turn and reposition self in bed from side to side with cuing.
[2025-08-29 14:00] VITALS: BP 144/86; PULSE 65; RESP 16; TEMP 37; O2SAT 100
--- NOTE | 2025-08-29 14:30 | MHC.CM.ED ---
Patient remains in Er overflow. [facility] has obtained ins auth. However patient tested positive for Norovirus on 08/27. Patient will need to be GI symptom free before SNF can accept her. Stil having diarrhea. Will reach out to facility tomorrow, 08/30, about symptoms for a possible d/c on Friday 08/31. Continue to monitor for d/c needs.
--- NOTE | 2025-08-29 16:42 | HO.WOUND ---
Over Flow Rounding completed 70yr old female present in [facility] [place] ED / OverFlow area - See ED notes for detailed history.? Inpatient Skin Integrity Maintenance Rounding. Patient skin not assesed as she was eating lunch - direct care team reports barrier cream s in use and the patient is not turned Q 2 hours since she is very active with in the bed. Recommend Q2hr turns if mobility changes are noted. Per direct care team skin to perineal and buttock noted to bed red intact and blanchable consistent with MASD. Barrier cream in use. Bilateral Heels not assessed today recommend floating off of bed surface with pillows. May use preventative foam dressing application to protect from friction and injury development.? Patient on Hospital bed at this time recommend applying low air loss pump to mattress if available.? Recommend SIPP Activation. Buttock and Perineal - Off Load Pressure with Q2 hr turns and use of pillows - Cleanse with PH balance spray or wipes, pat dry. ?Apply thin layer of barrier cream to affected area.? Apply twice daily and Reapply thin layer PRN after each episode of incontinence. Bilateral Heels? - Elevate heels off of bed surface with pillows.? Float heels off of pillows.? Apply skin prep allow to dry.? Apply heel foam dressings, peel back and assess Q shift and change every 5-7 days and PRN.
[2025-08-29 21:03] VITALS: BP 155/70; PULSE 71; RESP 16; TEMP 36.4; O2SAT 99
[2025-08-30 05:56] VITALS: BP 136/78; PULSE 81; RESP 16; TEMP 36.9; O2SAT 100
[2025-08-30] MEDS: Metoprolol Succinate ER 25 MG TAB.ER.24H PO (07:51)
[2025-08-30] MEDS: Ferrous Sulfate 324 MG TABLET.DR PO (07:52)
[2025-08-30] MEDS: Fluticasone/Vilanterol 100/25 BLST.W.DEV 1 PUFF INHALE (08:48)
[2025-08-30 08:50] VITALS: PULSE 81; RESP 15; O2SAT 98
--- NOTE | 2025-08-30 09:57 | MHC.CM.ED ---
Patient remains in ER overflow. No GI symptoms at this time. [facility] booked for Friday 08/31 at 1030am as long as patient remains without any GI symptoms. Med nec with chart. Patient, Vilma Geiger RN and Feli VARGAS aware. Continue to monitor for d/c needs.
--- NOTE | 2025-08-30 10:53 | PC.NURSE ---
Patient used call jones, notified of urine incontinence. Incontinence care provided, cleansed with soap/water. Barrier cream applied, no open wounds noted to skin at this time. Care ongoing by this RN.
[2025-08-30 14:00] VITALS: BP 126/60; PULSE 64; RESP 18; TEMP 36.3; O2SAT 100
[2025-08-30 22:00] VITALS: BP 150/70; PULSE 70; RESP 16; TEMP 36.9; O2SAT 100
[2025-08-30] MEDS: Lidocaine 4 % Patch ADH..PATCH 1 PATCH TRANSDERMA (23:44)
[2025-08-31 06:31] VITALS: BP 142/71; PULSE 79; RESP 16; TEMP 36.7; O2SAT 98
[2025-08-31] MEDS: Metoprolol Succinate ER 25 MG TAB.ER.24H PO (08:29)
[2025-08-31] MEDS: Ferrous Sulfate 324 MG TABLET.DR PO (08:29)
[2025-08-31] MEDS: Fluticasone/Vilanterol 100/25 BLST.W.DEV 1 PUFF INHALE (08:44)
[2025-08-31 08:45] VITALS: PULSE 79; RESP 16; O2SAT 97
[2025-08-31 10:32] VITALS: BP 114/59; PULSE 92; RESP 15; TEMP 37; O2SAT 100
--- NOTE | 2025-08-31 11:15 | MHC.CM.ED ---
Pt to transfer to [facility] via [facility]. HCP Juanjo aware of plan/placement
[2025-08-31 11:25] VITALS: BP 114/59; PULSE 92; RESP 16; TEMP 37; O2SAT 100
== END 2025-08-31 11:26 ==
PROVIDERS: Physician Assistant Medical; Registered Nurse Emergency; Emergency Provider Emergency Medicine Emergency Medical Services; PCP Internal Medicine Geriatric Medicine
DX: F10.96 Alcohol use, unspecified with alcohol-induced persisting amnestic disorder (principal); R45.850 Homicidal ideations; N39.0 Urinary tract infection, site not specified; A08.11 Acute gastroenteropathy due to Norwalk agent; F12.90 Cannabis use, unspecified, uncomplicated; R45.1 Restlessness and agitation; R19.7 Diarrhea, unspecified; J44.9 Chronic obstructive pulmonary disease, unspecified; D89.89 Other specified disorders involving the immune mechanism, not elsewhere classified; Z51.81 Encounter for therapeutic drug level monitoring; Z79.899 Other long term (current) drug therapy; Z03.818 Encounter for observation for suspected exposure to other biological agents ruled out
CPT/HCPCS: 36415; 80053; 80307; 81001; 82947; 83735; 85025; 87086; 87088; 87186; 87493; 87507; 87637; 93005; 94640; 97161; 99285; S9485

== ENCOUNTER → 2025-08-18 13:22 | Outpatient (BNV) | payer OTHER, SELFPAY | PROVIDERS: Emergency Provider Emergency Medicine Emergency Medical Services; PCP Internal Medicine Geriatric Medicine; Visit Provider Internal Medicine | DX: I49.9 Cardiac arrhythmia, unspecified (principal) | CPT/HCPCS: 93010 ==